=== PATIENT | male | born 1955 | race Caucasian/White ===

== ENCOUNTER 2025-06-25 21:29 | Inpatient (IN) | payer MEDICARE, SELFPAY ==
--- OUTSIDE RECORDS SUMMARY | 2025-04-15 18:17 | XMS_ITS | Encounter Summary ---
Author Organization Kaylin Newman jacques Address [address] [place] [id number] Care Team Providers Care Import Customs Clearing Agent Name Role Phone Kilo Huynh Jr. Primary Care Provid er Reason for Referral * (Routine) - Pending Review Specialty Diagnoses / Procedures Referred By Contac t Referred To Contact Procedures Reason for not prescribing emergency opioid antagonists on discharge Mariano Crabtree MD [address] [place] [address] Phone: tel: fax: Referral ID Status Reason Start Date Expiration Date V isits Requested Visits Authorized [id number] Pending Review 06/25/2025 09/18/2026 1 1 * (Routine) - Pending Review Specialty Diagnoses / Procedures Referred By Contac t Referred To Contact Procedures Diets for dysphagia (difficulty in swallowing): Mariano Crabtree MD [address] [place] [address] Phone: tel: fax: Referral ID Status Reason Start Date Expiration Date V isits Requested Visits Authorized [id number] Pending Review 06/25/2025 09/18/2026 1 1 * Invasive Imaging (Routine) - New Request Specialty Diagnoses / Procedures Referred By Contac t Referred To Contact Radiology Diagnoses Aspiration pneumonitis (HCC) Procedures IR Follow-Up Appointment Mohinder Johnson MD [address] [place] [address] Phone: tel: fax: Referral ID Status Reason Start Date Expiration Date V isits Requested Visits Authorized [id number] New Request 08/12/2025 11/05/2026 1 1 * Invasive Imaging (Routine) - New Request Specialty Diagnoses / Procedures Referred By Ammy hansen Referred To Contact Radiology Diagnoses Aspiration into airway, sequela Procedures IR Follow-Up Appointment Mohinder Johnson MD [address] [place] [address] Phone: tel: fax: Referral ID Status Reason Start Date Expiration Date V isits Requested Visits Authorized [id number] New Request 05/12/2025 08/05/2026 1 1 Reason for Visit * Reason Comments Altered Mental Status * Auth/Cert (Routine) Specialty Diagnoses / Procedures Referred By Ammy hansen Referred To Contact Diagnoses Observation and evaluation for suspected conditions not found Procedures [place] [facility] IP/OBS CARE HIGH MDM 75 MINUTES Referral ID Status Reason Start Date Expiration Date Visits Re quested Visits Authorized [id number] 1 1 Encounter Details Date Type Department Care Team (Latest Contact Info) Description 04/15/2025 6:17 PM EDT - 06/25/2025 7:33 PM EDT Hospital Encounter [facility] [address] [place] [address] Dane Caldwell MD [address] [place] [phone] Enzo Bonner MD [address] [place] [address] Lela Martinez MD [address] [place] [address] Rachelle Randall MD [address] [place] [address] Carter Cerda MD [address] /[address] [address] Chuy Hernandez MD [address] [place] [address] Bonifacio Agudelo MD [address] [place] [address] Jono Aviles MD [address] [place] [address] Mildred Srinivasan MD [address] [place] [address] Mohinder Johnson MD [address] [place] [address] Noe Carranza MD [address] [place] [address] Imelda Xie MD [address] [place] [address] Rabia Velasco MD [address] [place] [address] [id number] Urban Mondragon MD [address] [place] [address] Quan Coates MD [address] [place] [address] Mariano Maloney MD [address] [place], [place] Feliciano Choi MD [address] [place], [place] Govind Olivo MD [address] [facility] W/Span 2 [place], [place] Param Abdi MD [address] 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 IR Follow-Up Appointment Needs routine exchange in [...] Consider starting BP medication. [] Re-evaluation with DISEASE EDUCATION SPECIALIST once he has had increased improvement in [...] he was medically stable and accepted at [facility] for continued psychiatric care and support. Carter [...] was able to work with PT and DISEASE EDUCATION SPECIALIST. However, at the same time he also [...] and SI. He was a ccepted to [facility] on 06/25. # Oropharyngeal Dysphagia with G-Tube [...] improvements in mental status, could re- consider DISEASE EDUCATION SPECIALIST and video swallow. Discussion with HCP that he hopes Carter will be eventually able to transition from the G tube back to PO after swallow therapy. DISEASE EDUCATION SPECIALIST conversation 06/11 with barium swallow - still aspirating but improvement from prior. Per DISEASE EDUCATION SPECIALIST onreview of his long history of dysphagia [...] [facility]. Multiple consistencies of [...] a standalone note by the Speech-Language Pathologist ([facility], Notes, Speech Pathology). BY ELECTRONICALLY SIGNING [...] Anabel Melchor MD Internal Medicine PGY-2 Pager: [phone] [1] Medications Prior to Admission Medication Sig [...] 06/25/2025 8:58 PM EDT Associated attestation - aMriano Crabtree MD - 06/25/2025 8:58 PM EDT [...] medically stable and will be discharged to [facility] geriatric psychiatry unit. is clinically stable for discharge. The total time spent on discharge planning, counseling, and coordination of care was greater than 30 minutes. Remainder of plan per resident note. Mariano Crabtree M.D. Chief City Planner. Ac Forman Clinical Fellow. Department of Infectious [...] taking part in your care here at [facility]! Why was I admitted to the hospital? [...] emergency department if you experience: Sincerely, Your [facility] Care Team documented in this encounter Medications at Time of Discharge acetaminophen (TYLENOL) 500 MG tablet 2 tablets (1,000 mg total) by G-tube route 3 times a day. 06/25/2025 atorvaSTATin (LIPITOR) 20 MG tablet TAKE 1 TABLET (20 MG TOTAL) BY MOUTH DAILY. 90 tablet 3 09/18/2017 bisacodyl (DULCOLAX) 10 mg suppository Insert 1 suppository (10 mg total) into the rectum daily as needed for constipation. 06/25/2025 buPROPion (WELLBUTRIN) 100 MG tablet Take 1 tablet (100 mg total) by mouth 3 times a day. calcium carbonate (TUMS) 200 mg calcium (500 [...] times a day as needed (pain). 06/25/2025 famotidine (PEPCID) 20 MG tablet 1 tablet (20 mg total) by G-tube route every morning & every evening. gabapentin (NEURONTIN) 100 MG capsule 1 capsule (100 mg total) by G-tube route every morning. 06/26/2025 gabapentin (NEURONTIN) 300 MG capsule 1 capsule (300 mg total) by G-tube route at bedtime. gabapentin (NEURONTIN) 300 MG capsule 1 capsule [...] G-tube route 2 times a day. 06/25/2025 lidocaine (LIDODERM) 5 % patch Place 1 patch on the skin daily. Remove & Discard patch within 12 hours or as directed by polyethylene glycol (MIRALAX) 17 gram packet Take 1 packet (17 g total) by mouth 2 times a day. 06/25/2025 ramelteon (ROZEREM) 8 mg tablet Take 1 tablet (8 mg total) by mouth at bedtime. G-tube 06/25/2025 sennosides 8.8 mg/5 mL oral syrup 10 mL (17.6 mg total) by G-tube route every morning & every evening. simethicone (MYLICON) 80 MG chewable tablet 1 tablet (80 mg total) by G-tube route every 6 hours as needed for flatulence. 06/25/2025 sodium chloride (OCEAN) 0.65 % nasal spray 2 sprays into each nostril every 2 hours as needed for congestion. 06/25/2025 tamsulosin (FLOMAX) 0.4 mg cap 24 hr capsule 1 capsule (0.4 mg total) by G-tube route at bedtime. traZODone (DESYREL) 150 MG tablet 1 tablet (150 mg total) by G-tube route at bedtime. valproate (DEPAKENE) 250 mg/5 mL Soln 10 [...] risk reduction [x]Discharge recommendations [x]Mobility Recommendations []Other: []Valve Grinder utilized for session Team Communication: Communicated with [...] participate in the rehabilitation program: Yes Time: 8271-5083 Physical Therapist Name: DEMETRA HAWKINS PT Physical Therapist Pager: [phone] License #: [id number] * Demetra White RN - 06/25/2025 3:45 PM EDT Case Management - Progress Note Patient: Carter Raymundo : 1955 Attending: Mariano Crabtree MD Admit Date: 04/15/2025 Inpatient Status Admit Date: 04/16/25 Primary Care Physician: Kilo Huynh Discussed at [facility]. Section 12. 1:1. MANJIT: Pending IP Cheil Psych Bed: On bed search list. Dispo: Inpatient psych hospital/unit; spoke with [facility] psych admissions bed search team; [facility] is currently reviewing patient's clinicals. State that continued progression with PT/OT may create more bed offers. CM to continue to follow. Demetra White RN 06/25/2025 * Kymberly Mata MD - 06/25/2025 2:55 PM EDT [facility] PSYCHIATRIC CONSULTATION FOLLOW-UP CHIEF COMPLAINT: Psych f/u [...] a well-known poet to visit him at [facility] if he is placed there. He endorses [...] disposition planning. He stopped the bed at [facility] due to prolonged inpatient admission. We [...] knowledge: intact to interview Language: fluent in Mongolian Mental Status: Appearance: appropriately groomed, dressed in [...] 101 BPM Atrial Heart Rate 101 BPM [place] Interval 142 ms QRSD Interval 98 ms QT Interval 376 ms QTC Interval 487 ms P Pear[place] 43 degrees R Pear[place] -26 degrees T Wave [place] 56 degrees Narrative Sinus tachycardia Moderate voltage [...] 25 mg 25 mg G-tube Daily Ammon Lwo MD PhD 25 mg at 06/25/25 0941 [...] injection 40 mg 40 mg Subcutaneous Q24H [facility] Juliet Becerra MD 40 mg at famotidine (PEPCID) tablet 20 mg 20 mg G-tube BID Juliet Becerra MD 20 mg at 06/25/25940 gabapentin (NEURONTIN) capsule 100 mg 100 mg G-tube QAM Patricia Holden MD 100 mg at 06/25/25939 gabapentin [...] (NS) 0.9% flush 3 mL Intravenous Q12H [facility] Peña Salas MD 3 mLat 06/02/252035 And [...] Zaman MD - 06/25/2025 6:56 AM EDT [facility] Medicine Progress Note Patient: Carter Raymudno Admission Date: 04/15/2025 Length of Stay: 70 [...] was able to work with PT and DISEASE EDUCATION SPECIALIST. However, at the same time he also [...] with improvements in mental status, could re-consider DISEASE EDUCATION SPECIALIST and video swallow. Discussion with HCP that he hopes Carter will be eventually able to transition from the G tube back to PO after swallow therapy. DISEASE EDUCATION SPECIALIST conversation 06/11 with barium swallow - still aspirating but improvement from prior. Per DISEASE EDUCATION SPECIALIST on review of his long history of [...] thin liquids - guanfenasin PRN - re-engage DISEASE EDUCATION SPECIALIST today #Leg pain/weakness # History of L4-L5 [...] Full Code - Contact/HCP: brother Delvin Raymundo [phone] Patient Contacts Name Legal Rel Relationship Phone Active Delvin Raymundo Health Care Agent Brother Yes - Disposition: -- Anticipated discharge to: rehab vs psych facility -- Anticipated discharge date: 07/01 -- Anticipated discharge barriers: psych stabilization, working with PT Extended Emergency Contact Information Primary Emergency Contact: PepitosteveDelvin Mobile Relation: Brother Valve Grinder needed? No Nyla Zaman MD PGY-1 Dept [...] to review of data inelectronic medical record, qgew-vi-[id number] evaluation, documentation, and coordination of care. Mariano Crabtree M.D. Chief City Planner. Ac Forman Clinical Fellow. Department of Infectious Diseases * Kymberly Mata MD - 06/24/2025 4:47 PM EDT [facility] PSYCHIATRIC CONSULTATION FOLLOW-UP CHIEF COMPLAINT: INTERVAL HPI: [...] constipation. He is hopeful for hospitalization at [place] for ongoing treatment. He is able to [...] knowledge: intact to interview Language: fluent in Mongolian Mental Status: Appearance: appropriately groomed, dressed in [...] 101 BPM Atrial Heart Rate 101 BPM [place] Interval 142 ms QRSD Interval 98 ms QT Interval 376 ms QTC Interval 487 ms P Pear[place] 43 degrees R Pear[place] -26 degrees T Wave [place] 56 degrees Narrative Sinus tachycardia Moderate voltage [...] risk reduction [x]Discharge recommendations [x]Mobility Recommendations []Other: []Valve Grinder utilized for session Team Communication: Communicated with [...] functional baseline, he will require discharge to [facility] once medically stable. Treatment Plan: Therapeutic Activities/Functional Training Patient agrees with the above goals and is willing to participate in the rehabilitation program: Yes Time: 1636-3730 Physical Therapist Name: Felipa Petit PT Physical Therapist Pager: [phone] Physical Therapist License #: [id number] * Rachelle Condon OT - 06/24/2025 1:00 [...] [] [x]PT (co-treat) []CM RE: Patient status []Valve Grinder utilized for session Intervention: Patient/Caregiver Education RE: [...] participate in the rehabilitation program: Yes Time: 3574-3473 Occupational Therapist Name: Rachelle Condon OT Occupational Therapist Pager: [phone] License #: [id number] * Nyla Zaman MD - 06/24/2025 7:15 AM EDT [facility] Medicine Progress Note Patient: Carter Raymundo Admission [...] about G-tube and requesting to work with DISEASE EDUCATION SPECIALIST as he wants to get it removed. Told patient we want to be careful with his swallowing, and he was agreeable to continue to work with DISEASE EDUCATION SPECIALIST. He otherwise denies any acute concerns. Denies [...] was able to work with PT and DISEASE EDUCATION SPECIALIST. However, at the same time he also [...] with improvements in mental status, could re-consider DISEASE EDUCATION SPECIALIST and video swallow. Discussion with HCP that he hopes Carter will be eventually able to transition from the G tube back to PO after swallow therapy. DISEASE EDUCATION SPECIALIST conversation 06/11 with barium swallow - still aspirating but improvement from prior. Per DISEASE EDUCATION SPECIALIST on review of his long history of [...] thin liquids - guanfenasin PRN - re-engage DISEASE EDUCATION SPECIALIST today #Leg pain/weakness # History of L4-L5 [...] Full Code - Contact/HCP: brother Delvin Raymundo [phone] Patient Contacts Name Legal Rel Relationship Phone Active Delvin Raymundo Health Care Agent Brother Yes - Disposition: -- Anticipated discharge to: Acute rehab facility -- Anticipated discharge date: 06/28 -- Anticipated discharge barriers: psych stabilization Extended Emergency Contact Information Primary Emergency Contact: Delvin Raymundo Mobile Relation: Brother Valve Grinder needed? No Nyla Zaman MD PGY-1 Dept [...] oral intake, we will reach out to DISEASE EDUCATION SPECIALIST for repeat evaluation, and discuss with psychiatry regarding placement. I spent 44 minutes in total on this encounter today, including but not limited to review of data inelectronic medical record, [id number] evaluation, documentation, and coordination of care. Mariano Crabtree M.D. Chief City Planner. Ac Forman Clinical Fellow. Department of Infectious [...] tube feed cont to be cycled as [id number], voiding via male purewick, slept well overnight [...] participate in the rehabilitation program: Yes Time: 1583-2443 Physical Therapist Name: Yogi Blevins PT Physical Therapist Pager: [phone] License #: [id number] * Nyla Zaman MD - 06/23/2025 6:52 AM EDT [facility] Medicine Progress Note Patient: Carter Raymundo Admission [...] appropriate. LABS, MICROBIOLOGY and STUDIES reviewed in [facility]. ASSESSMENT & PLAN 70 y.o. male [...] was able to work with PT and DISEASE EDUCATION SPECIALIST. However, at the same time he also [...] with improvements in mental status, could re-consider DISEASE EDUCATION SPECIALIST and video swallow. Discussion with HCP that he hopes Carter will be eventually able to transition from the G tube back to PO after swallow therapy. DISEASE EDUCATION SPECIALIST conversation 06/11 with barium swallow - still aspirating but improvement from prior. Per DISEASE EDUCATION SPECIALIST on review of his long history of [...] Full Code - Contact/HCP: brother Delvin Raymundo [phone] - Dispo: cheli-psych placement, trial with PT Patient Contacts Name Legal Rel Relationship Phone Active Delvin Raymundo Health Care Agent Brother Yes - Disposition: -- Anticipated discharge to: Acute rehab facility vs psych -- Anticipated discharge date: 06/27 -- Anticipated discharge barriers: pending psych stabilization Extended Emergency Contact Information Primary Emergency Contact: Delvin Raymundo Mobile Relation: Brother Valve Grinder needed? No Nyla Zaman MD PGY-1 Dept [...] to review of data inelectronic medical record, eunu-wq-axrz evaluation, documentation, and coordination of care. Mariano Crabtree M.D. Chief City Planner. Ac Forman Clinical Fellow. Department of Infectious Diseases * Demetra Quitman, PT - 06/22/2025 9:44 AM EDT PHYSICAL [...] risk reduction [x]Discharge recommendations [x]Mobility Recommendations []Other: []Valve Grinder utilized for session Team Communication: Communicated with [...] participate in the rehabilitation program: Yes Time: 812-958 Physical Therapist Name: DEMETRA HAWKINS PT Physical Therapist Pager: [phone] License #: [id number] * Nyla Zaman MD - 06/22/2025 6:47 AM EDT Images from the original note were not included. [facility] Department of Medicine [facility] Medicine Progress Note Patient: Carter Raymundo Admission [...] Improving. LABS, MICROBIOLOGY and STUDIES reviewed in [facility]. ASSESSMENT & PLAN 70 y.o. male [...] was able to work with PT and DISEASE EDUCATION SPECIALIST. However, at the same time he also [...] with improvements in mental status, could re-consider DISEASE EDUCATION SPECIALIST and video swallow. Discussion with HCP that he hopes Carter will be eventually able to transition from the G tube back to PO after swallow therapy. DISEASE EDUCATION SPECIALIST conversation 06/11 with barium swallow - still aspirating but improvement from prior. Per DISEASE EDUCATION SPECIALIST on review of his long history of [...] Full Code - Contact/HCP: brother Delvin Raymundo [phone] - Dispo: cheli-psych placement, trial with PT Patient Contacts Name Legal Rel Relationship Phone Active Delvin Raymundo Health Care Agent Brother Yes - Disposition: -- Anticipated discharge to: Acute rehab facility -- Anticipated discharge date: 07/01 -- Anticipated discharge barriers: needs to be off 1:1 for rehab Extended Emergency Contact Information Primary Emergency Contact: Delvin Raymundo Mobile Relation: Brother Valve Grinder needed? No Nyla Zaman MD Dept of [...] MD Attending Physician Section of Hospital Medicine [facility] * Анна Anguiano MD - 06/21/2025 12:42 PM EDT Images from the original note were not included. [facility] PSYCHIATRIC CONSULTATION FOLLOW-UP CHIEF COMPLAINT: I've been driven to suicidality today INTERVAL HPI: Met with patient at bedside. He reports an upsetting conversation with a medical supervisor today, in which he felt she was [...] knowledge: intact to interview Language: fluent in Mongolian Mental Status: Appearance: tearful, writing on several [...] and emphasized preference to be admitted to [place]. Patient did not appear delirious at the time of interview. DSM-5 DIAGNOSIS: Schizoaffective disorder RECOMMENDATIONS: - Please continue 1:1 sitter - Patient meets section 12 criteria and cannot leave AMA -Rest of recommendations as per Dr. Rivas's note Анна Anguiano MD PGY4 Psychiatry [id number] * Anabel Melchor MD - 06/21/2025 6:19 AM EDT [facility] Medicine Progress Note Patient: Carter Raymundo ( [...] was able to work with PT and DISEASE EDUCATION SPECIALIST. However, at the same time he also [...] with improvements in mental status, could re-consider DISEASE EDUCATION SPECIALIST and video swallow. Discussion with HCP that he hopes Carter will be eventually able to transition from the G tube back to PO after swallow therapy. DISEASE EDUCATION SPECIALIST conversation 06/11 with barium swallow - still aspirating but improvement from prior. Per DISEASE EDUCATION SPECIALIST on review of his long history of [...] Full Code - Contact/HCP: brother Delvin Raymundo [phone] - Dispo: cheli-psych placement, trial with PT [...] MD Attending Physician Section of Hospital Medicine [facility] * Patricia Holden MD - 06/20/2025 10:09 AM EDT [facility] Medicine Progress Note Patient: Carter Raymundo ( [...] uids. He is hopeful to do further DISEASE EDUCATION SPECIALIST therapy in the future to work on [...] was able to work with PT and DISEASE EDUCATION SPECIALIST. However, at the same time he also [...] with improvements in mental status, could re-consider DISEASE EDUCATION SPECIALIST and video swallow. Discussion with HCP that he hopes Carter will be eventually able to transition from the G tube back to PO after swallow therapy. DISEASE EDUCATION SPECIALIST conversation 06/11 with barium swallow - still aspirating but improvement from prior. Per DISEASE EDUCATION SPECIALIST on review of his long history of [...] Full Code - Contact/HCP: brother Delvin Raymundo [phone] - Dispo: cheli-psych placement, trial with PT -- Patricia oHlden MD Resident, Internal Medicine Cosigned by Param [...] MD Attending Physician Section of Hospital Medicine [facility] * Madelyn Bailey RN - 06/20/2025 [...] []MD [x]PT (co-treat) []CM RE: Patient status []Valve Grinder utilized for session Intervention: Patient/Caregiver Education RE: [...] participate in the rehabilitation program: Yes Time: 2014-5746 Occupational Therapist Name: Rachelle Condon OT Occupational Therapist Pager: [phone] License #: [id number] * Demetra Hawkins, PT - 06/19/2025 3:02 [...] risk reduction [x]Discharge recommendations [x]Mobility Recommendations []Other: []Valve Grinder utilized for session Team Communication: Communicated with [...] participate in the rehabilitation program: Yes Time: 0412-5247 Physical Therapist Name: DEMETRA HAWKINS PT Physical Therapist Pager: [phone] License #: [id number] * Nicole Ramirez - 06/19/2025 9:15 AM [...] Exam: Deferred. ASSESSMENT: Estimated Nutrition Needs: Calories: 5962-5470 kcal (25-30 kcal/kg) Protein: 85-106 g (1.2-1.5 g/kg) Fluids: 2448-5395 mL (25-30 mL/kg) Estimated Needs Calculated Usin.9 [...] continue to follow, please message or page [phone] with any questions/concerns Signed by: Nicole Ramirez, MS, RD, LDN 06/19/25 9:15 AM * Patricia Holden MD - 06/19/2025 7:46 AM EDT [facility] Medicine Progress Note Patient: Carter Raymundo ( [...] was able to work with PT and DISEASE EDUCATION SPECIALIST. However, at the same time he also [...] with improvements in mental status, could re-consider DISEASE EDUCATION SPECIALIST and video swallow. Discussion with HCP that he hopes Carter will be eventually able to transition from the G tube back to PO after swallow therapy. DISEASE EDUCATION SPECIALIST conversation 06/11 with barium swallow - still aspirating but improvement from prior. Per DISEASE EDUCATION SPECIALIST on review of his long history of [...] Full Code - Contact/HCP: brother Delvin Raymundo [phone] - Dispo: cheli-psych placement, trial with PT [...] of , Month, Year, City, Name of [facility] Disoriented to: Day Following Directions: Follows [...] [x]RN []MD [x]PT []CM RE: Patient status []Valve Grinder utilized for session Intervention: Patient/Caregiver Education RE: [...] participate in the rehabilitation program: Yes Time: 2082-3871 Occupational Therapist Name: Rachelle Condon OT Occupational Therapist Pager: [phone] License #: [id number] * Luiza Barone, PT - 06/18/2025 5:12 [...] status [x]Patient discussed at interdisciplinary team rounds. []Valve Grinder utilized for session Pt left seated with [...] participate in the rehabilitation program: Yes Time: 2874-9224 Physical Therapy License #[id number] Physical Therapist Name: Luiza Barone, PT Physical Therapist Pager: [phone] * Kimani Rivas MD - 06/18/2025 9:59 AM EDT Images from the original note were not included. [facility] PSYCHIATRIC CONSULTATION FOLLOW-UP NOTE INTERVAL HPI: -NAEON Patient reports feeling well despite recent circumstances. Has somatic concerns regarding left leg,states that he believes it is related to neuropathy. He is looking forward to working with PT today. He acknowledges he needs to get stronger for inpatient psychiatry. He expresses a preference for [facility]. He reports still working on his poetry, [...] clinical course remains positive. Appreciate collateral from manager long term care outpatient psychologist to determine baseline personality and [...] If CL Psychiatry is needed, please contact [phone] for overnight or weekend psychiatric emergencies. Case [...] Holden MD - 06/18/2025 7:36 AM EDT [facility] Medicine Progress Note Patient: Carter Raymundo ( , 1955) Admission Date: 04/15/2025 PCP: Kilo Reyes Jr [facility] Inpatient Attending: Govind Olivo MD INTERVAL 24-hr [...] unresponsiveness events; stroke and seizure workup negative ([facility], MRI brain, EEG). Likely acute delirium on background of decompensated schizoaffective disorder. Psychiatry managing clozapine titration and adjuncts; haloperidol for augmentation and agitation. Meets Section 12 criteria. Week of 06/08 marked improvement in his alertness, insight, ability to communicate with the team, memory and self awareness and was able to work with PT and DISEASE EDUCATION SPECIALIST. However, at the same time he also [...] bed search, verify what level of independence [facility] would require for him to be [...] with improvements in mental status, could re-consider DISEASE EDUCATION SPECIALIST and video swallow. Discussion with HCP that he hopes Carter will be eventually able to transition from the G tube back to PO after swallow therapy. DISEASE EDUCATION SPECIALIST conversation 06/11 with barium swallow - still aspirating but improvement from prior. 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 SW engaged in active listening and empathetic presence. Pt identifies no acute psychosocial needs. SW remains available for support. Please page with questions or concerns. Agustina Garcia LCSW [phone] * Neda Smith, PT - 06/17/2025 12:27 [...] risk reduction []Discharge recommendations [x]Mobility Recommendations []Other: []Valve Grinder utilized for session Team Communication: Communicated with [...] participate in the rehabilitation program: Yes Time: 2353-7278 Physical Therapist Name: Neda Smith PT, DPT Physical Therapist Pager: [phone] License #[id number] * Rachelle Condon OT - 06/17/2025 11:28 [...] []MD [x]PT (co-treat) []CM RE: Patient status []Valve Grinder utilized for session Intervention: Patient/Caregiver Education RE: [...] participate in the rehabilitation program: Yes Time: 6958-9936 Occupational Therapist Name: Rachelle Condon OT Occupational Therapist Pager: [phone] License #: [id number] * Patricia Holden MD - 06/17/2025 7:34 AM EDT [facility] Medicine Progress Note Patient: Carter Raymundo ( [...] was able to work with PT and DISEASE EDUCATION SPECIALIST. However, at the same time he also [...] bed search, verify what level of independence [facility] would require for him to be [...] with improvements in mental status, could re-consider DISEASE EDUCATION SPECIALIST and video swallow. Discussion with HCP that he hopes Carter will be eventually able to transition from the G tube back to PO after swallow therapy. DISEASE EDUCATION SPECIALIST conversation 06/11 with barium swallow - still aspirating but improvement from prior. 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 However, at the same time he also [...] with improvements in mental status, could re-consider DISEASE EDUCATION SPECIALIST and video swallow. Discussion with HCP that he hopes Carter will be eventually able to transition from the G tube back to PO after swallow therapy. DISEASE EDUCATION SPECIALIST conversation 06/11 with barium swallow - still aspirating but improvement from prior. Per DISEASE EDUCATION SPECIALIST on review of his long history of [...] Full Code - Contact/HCP: brother Delvin Raymundo [phone] - Dispo: cheli-psych placement, trial with PT [...] risk reduction [x]Discharge recommendations [x]Mobility Recommendations []Other: []Valve Grinder utilized for session Team Communication: Communicated with [...] participate in the rehabilitation program: Yes Time: 4952-8110 Physical Therapist Name: DEMETRA HAWKINS PT Physical Therapist Pager: [phone] License #: [id number] * Vanessa Reyes RD - 06/15/2025 9:55 [...] in interview ASSESSMENT: Estimated Nutrition Needs: Calories: 5514-8345 kcal (25-30 kcal/kg) Protein: 85-106 g (1.2-1.5 g/kg) Fluids: 8047-2305 mL (25-30 mL/kg) Estimated Needs Calculated Usin.9 [...] Lytes WNL. Interventions / Recommendations: Diet per DISEASE EDUCATION SPECIALIST/team EN recommendations: Switch to standard fiber-containing formula [...] continue to follow, please message or page [phone] with any questions/concerns Signed by: Vanessa Reyes RD 06/15/25 9:55 AM * Demtera White RN - 06/15/2025 9:36 AM EDT Case Management - Progress Note Patient: Carter Raymundo : 1955 Attending: Govind Olivo MD Admit Date: 04/15/2025 Inpatient Status Admit Date: 04/16/25 Primary Care Physician: Kilo Huynh Discussed at [facility]. Section 12. 1:1. MANJIT: Pending IP [facility] Psych Bed: On bed search list Dispo: Inpatient psych hospital/unit CM to continue to follow. Demetra White RN 06/15/2025 * Kimani Rivas MD - 06/15/2025 9:17 AM EDT Images from the original note were not included. [facility] PSYCHIATRIC CONSULTATION FOLLOW-UP NOTE INTERVAL HPI: -NAEON [...] outpatient psychologist of 45 years, per chart: [phone], per online search: [phone]. Left with callback at both numbers provided Dr. José Miguel Jefferson returned call at [phone]: Dr. Jefferson was in contact with patient [...] difficult for him. 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 Recent surgical operations have [...] PRN Meds:.PRN Medications[3] DATA: Reviewed. ASSESSMENT: Carter aRymundo is a 69 y.o. male with past [...] which remains generally positive. Appreciate collateral from manager long term care outpatient psychologist to determine baseline personality and [...] If CL Psychiatry is needed, please contact [phone] for overnight or weekend psychiatric emergencies. Case [...] creative works that will be better than [employer]. Denied any wishes, SI/HI, and AH/VH. Non-pressured speech.No acute thought or behavioral disorganization. No excessive psychomotor activity or agitation. Cognitively, oriented to person, [facility], [place], June 14, Sunday, 2024, and superficially to [...] per resident note below. Saundra Soliman MD Furniture Fabricator, [facility] Psychiatric Consultation-Liaison Service Pager [phone] ([phone] for urgent questions and on nights/weekends/holidays) * Patricia Holden MD - 06/15/2025 7:25 AM EDT [facility] Medicine Progress Note Patient: Carter Raymundo ( [...] would be very interested in going to [facility]. De-escalated labs today. OBJECTIVE Vitals: T 97.6 [...] was able to work with PT and DISEASE EDUCATION SPECIALIST. However, at the same time he also [...] with improvements in mental status, could re-consider DISEASE EDUCATION SPECIALIST and video swallow. Discussion with HCP that he hopes Carter will be eventually able to transition from the G tube back to PO after swallow therapy. DISEASE EDUCATION SPECIALIST conversation 06/11 with barium swallow - still aspirating but improvement from prior. Per DISEASE EDUCATION SPECIALIST on review of his long history of [...] Full Code - Contact/HCP: brother Delvin Raymundo [phone] - Dispo: cheli-psych placement, trial with PT [...] MD PhD - 06/14/2025 5:57 AM EDT [facility] Medicine Progress Note Patient: Carter Raymundo ( [...] with improvements in mental status, could re-consider DISEASE EDUCATION SPECIALIST and video swallow. Discussion with HCP that he hopes Carter will be eventually able to transition from the G tube back to PO after swallow therapy. DISEASE EDUCATION SPECIALIST conversation 06/11 - still aspirating but improvement from prior. Will always be at risk for aspiration and unlikely to meet nutritional needs jovan full PO diet. Per DISEASE EDUCATION SPECIALIST, reasonable for PO for pleasure, with the [...] with oral hygiene before and after. - DISEASE EDUCATION SPECIALIST modified barium swallow 06/11. # Constipation / [...] Full Code - Contact/HCP: brother Delvin Raymundo [phone] - Dispo: cheli-psych placement, trial with PT [...] s/p G-tube on TF who presented to [facility] on 04/15 with unresponsiveness, aphasia, and concern [...] Feliciano Choi MD Section of Hospital Medicine [facility] * Patricia Holden MD - 06/13/2025 4:14 PM EDT [facility] Medicine Progress Note Patient: Carter Raymundo ( [...] with improvements in mental status, could re-consider DISEASE EDUCATION SPECIALIST and video swallow. Discussion with HCP that he hopes Carter will be eventually able to transition from the G tube back to PO after swallow therapy. DISEASE EDUCATION SPECIALIST conversation 06/11 - still aspirating but improvement from prior. Will always be at risk for aspiration and unlikely to meet nutritional needs jovan full PO diet. Per DISEASE EDUCATION SPECIALIST, reasonable for PO for pleasure, with the [...] with oral hygiene before and after. - DISEASE EDUCATION SPECIALIST modified barium swallow 06/11. # Constipation / [...] Full Code - Contact/HCP: brother Delvin Raymundo [phone] - Dispo: cheli-psych placement, trial with PT [...] s/p G-tube on TF who presented to [facility] on 04/15 with unresponsiveness, aphasia, and concern [...] Feliciano Choi MD Section of Hospital Medicine [facility] * Demetra Hawkins, PT - 06/12/2025 [...] assistance, Minimal assistance, With assistive device (ModAx2 w/COMMUNICATIONS EQUIPMENT OPERATOR progressing to Mod+Min w.RW progressing to ModA [...] risk reduction [x]Discharge recommendations [x]Mobility Recommendations []Other: []Valve Grinder utilized for session Team Communication: Communicated with [...] participate in the rehabilitation program: Yes Time: 4324-7435 Physical Therapist Name: DEMETRA HAWKINS PT Physical Therapist Pager: [phone] License #: [id number] * Payton Cramer, OT - 06/12/2025 4:47 [...] 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 [facility] PSYCHIATRIC CONSULTATION FOLLOW-UP NOTE INTERVAL HPI: -NAEON [...] continue attempts to gain additional collateral from manager long term care outpatient psychologist to determine baseline personality and [...] PGY2 Psychiatric Consultation Liaison Service Please contact [phone] for overnight or weekend psychiatric emergencies. [1] [...] Holden MD - 06/12/2025 7:36 AM EDT [facility] Medicine Progress Note Patient: Carter Raymundo ( [...] with improvements in mental status, could re-consider DISEASE EDUCATION SPECIALIST and video swallow. Discussion with HCP that he hopes Carter will be eventually able to transition from the G tube back to PO after swallow therapy. DISEASE EDUCATION SPECIALIST conversation 06/11 - still aspirating but improvement from prior. Will always be at risk for aspiration and unlikely to meet nutritional needs jovan full PO diet. Per DISEASE EDUCATION SPECIALIST, reasonable for PO for pleasure, with the [...] with oral hygiene before and after. - DISEASE EDUCATION SPECIALIST modified barium swallow 06/11. # Constipation / [...] Code Status: Full Code - Contact/HCP: brother Delivn Raymundo [phone] - Dispo: cheli-psych placement, trial with PT [...] s/p G-tube on TF who presented to [facility] on 04/15 with unresponsiveness, aphasia, and concern [...] Feliciano Choi MD Section of Hospital Medicine [facility] * Demetra Jenseniscoe, PT - 06/11/2025 [...] risk reduction [x]Discharge recommendations [x]Mobility Recommendations []Other: []Valve Grinder utilized for session Team Communication: Communicated with [...] participate in the rehabilitation program: Yes Time: 9526-7155 Physical Therapist Name: DEMETRA HAWKINS PT Physical Therapist Pager: [phone] License #: [id number] * Kimani Rivas MD - 06/11/2025 1:58 PM EDT [facility] PSYCHIATRIC CONSULTATION FOLLOW-UP NOTE INTERVAL HPI: -NAEON -Nursing reports patient irritable, endorsing desire to speak with manager investment of hospital Patient interviewed by attending psychiatrist [...] outpatient psychologist of 45 years, per chart: [phone], per online search: [phone]. Left with callback at both numbers provided [...] be beneficial to gain additional collateral from manager long term care outpatient p sychologist to determine baseline personality [...] PGY2 Psychiatric Consultation Liaison Service Please contact [phone] for overnight or weekend psychiatric emergencies. Case [...] inpatient level of care. * Nedra Rader, CCC-DISEASE EDUCATION SPECIALIST - 06/11/2025 1:09 PM EDT OROPHARYNGEAL VIDEOFLUOROSCOPIC SWALLOWING EVALUATION Date of Admission: 04/15/2025 Referring Provider: Patricia Holden MD Preferred Language: Mongolian Valve Grinder: none required History The patient is a [...] Thin Liquid], mildly thick (nectar) liquid [Varibar [place]], puree [Varibar Pudding], and alisa cracker coated [...] (1996). A penetration-aspiration scale. Dysphagia, 11(2), 93-98. https://doi.org/10.1007/PT24689537) 1.Consistency: thin liquids Max PAS:8: Contrast enters [...] is a chronic dysphagia without acute exacerbation, DISEASE EDUCATION SPECIALIST to sign off at this time. Diet orderand advancement to PO for pleasure at provider discretion. Please do not hesitate to reach out or reconsult DISEASE EDUCATION SPECIALIST for further or new questions/concerns. This swallowing [...] and the medical team, Nedra Rader MS [facility]-DISEASE EDUCATION SPECIALIST Speech Language Pathologist Pager #: [phone] Face Time: 1292-0641 Total Time: 60 min 06/11/25 [1] Allergies Allergen Reactions Morphine Itching Electronically signed by Nedra Rader MS [facility]-DISEASE EDUCATION SPECIALIST at 06/11/2025 2:22 PM EDT * Patricia Holden MD - 06/11/2025 11:13 AM EDT [facility] Medicine Progress Note Patient: Carter Raymundo ( , 1955) Admission Date: 04/15/2025 PCP: Kilo Reyes Jr [facility] Inpatient Attending: Feliciano Choi MD INTERVAL 24-hr [...] slowly and well paced. The idea of DISEASE EDUCATION SPECIALIST swallow makes him anxious, but he is [...] with improvements in mental status, could re-consider DISEASE EDUCATION SPECIALIST and video swallow. Discussion with HCP that he hopes Carter will be eventually able to transition from the G tube back to PO after swallow therapy. - c/w overnight tube feeds; adjustments per nutrition. - NPO except for H2O with nursing 1:1 bedside. - DISEASE EDUCATION SPECIALIST modified barium swallow 06/11. # Constipation / [...] Full Code - Contact/HCP: brother Delvin Raymundo [phone] - Dispo: cheli-psych placement, trial with PT [...] s/p G-tube on TF who presented to [facility] on 04/15 with unresponsiveness, aphasia, and concern [...] Feliciano Choi MD Section of Hospital Medicine [facility] * Yogi Blevins, PT - 06/10/2025 [...] participate in the rehabilitation program: Yes Time: 2902-4369 Physical Therapist Name: Yogi Blevins PT Physical Therapist Pager: [phone] License #: [id number] * Patricia Holden MD - 06/10/2025 6:42 AM EDT [facility] Medicine Progress Note Patient: Carter Raymundo ( [...] with improvements in mental status, could re-consider DISEASE EDUCATION SPECIALIST and video swallow. Discussion with HCP that he hopes Carter will be eventually able to transition from the G tube back to PO after swallow therapy. - c/w overnight tube feeds; adjustments per nutrition. - NPO except for H2O with nursing 1:1 bedside. - DISEASE EDUCATION SPECIALIST consult if patient agreeable, limited by agitation/paranoia [...] Full Code - Contact/HCP: brother Delvin Raymundo [phone] - Dispo: cheli-psych placement, trial with PT [...] s/p G-tube on TF who presented to [facility] on 04/15 with unresponsiveness, aphasia, and concern [...] high risk for aspiration, continue to encourage DISEASE EDUCATION SPECIALIST evaluation with VFSS/FEES. Medically stable for inpatient geriatric psychiatry placement, within the confines of his mobility limitations. I spent 35 minutes in this clinical encounter reviewing the medical record, seeing and examining the patient, placing orders, writing notes, performing signout, and communicating with the applicable medical and nursing teams. Feliciano Choi MD Section of Hospital Medicine [facility] * Demetra Hawkins, PT - 06/09/2025 [...] risk reduction [x]Discharge recommendations [x]Mobility Recommendations []Other: []Valve Grinder utilized for session Team Communication: Communicated with [...] participate in the rehabilitation program: Yes Time: 2998-7413 Physical Therapist Name: DEMETRA HAWKINS PT Physical Therapist Pager: [phone] License #: [id number] * Patricia Holden MD - 06/09/2025 6:51 AM EDT [facility] Medicine Progress Note Patient: Carter Raymundo ( [...] with improvements in mental status, could re-consider DISEASE EDUCATION SPECIALIST and video swallow. Discussion with HCP that he hopes Carter will be eventually able to transition from the G tube back to PO after swallow therapy. - c/w overnight tube feeds; adjustments per nutrition. - NPO except for H2O with nursing 1:1 bedside. - DISEASE EDUCATION SPECIALIST consult if patient agreeable, limited by agitation/paranoia [...] Full Code - Contact/HCP: brother Delvin Raymundo [phone] - Dispo: cheli-psych placement, trial with PT [...] s/p G-tube on TF who presented to [facility] on 04/15 with unresponsiveness, aphasia, and concern [...] insists that he work with an older DISEASE EDUCATION SPECIALIST (asking me to guarantee that they be [...] risk for aspiration, will continue to encourage DISEASE EDUCATION SPECIALIST evaluation with VFSS/FEES. I spent 45 minutes in this clinical encounter reviewing the medical record, seeing and examining the patient, placing orders, writing notes, performing signout, and communicating with the applicable medical and nursing teams. Feliciano Choi MD Section of Hospital Medicine [facility] * Demetra James, PT - 06/08/2025 [...] risk reduction [x]Discharge recommendations [x]Mobility Recommendations []Other: []Valve Grinder utilized for session Team Communication: Communicated with [...] participate in the rehabilitation program: Yes Time: 6173-8508 Physical Therapist Name: DEMETRA HAWKINS PT Physical Therapist Pager: [phone] License #: [id number] * Kimani Rivas MD - 06/08/2025 10:03 AM EDT Images from the original note were not included. 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 Not able to [...] PGY2 Psychiatric Consultation Liaison Service Please contact [phone] for overnight or weekend psychiatric emergencies. Case [...] Exam: Deferred ASSESSMENT: Estimated Nutrition Needs: Calories: 8087-5110 kcal (25-30 kcal/kg) Protein: 85-106 g (1.2-1.5 g/kg) Fluids: 8673-9241 mL (25-30 mL/kg) Estimated Needs Calculated Usin.9 [...] previous RD assessment (x7 days ago), per DISEASE EDUCATION SPECIALIST/team now NPO as of 06/03 given high [...] Lytes WNL. Interventions / Recommendations: Diet per team/DISEASE EDUCATION SPECIALIST Continue tube feeds at cycled goal: Glucerna [...] continue to follow, please message or page [phone] with any questions/concerns Signed by: Nelly León MS, RDN, LDN 06/08/25 2:51 PM * Patricia Holden MD - 06/08/2025 7:05 AM EDT [facility] Medicine Progress Note Patient: Carter Raymundo ( [...] potential medical setback in psych placement. - DISEASE EDUCATION SPECIALIST consult if patient agreeable, limited by agitation/paranoia [...] Full Code - Contact/HCP: brother Delvin Raymundo [phone] - Dispo: cheli-psych placement, trial with PT [...] s/p G-tube on TF who presented to [facility] on 04/15 with unresponsiveness, aphasia, and concern [...] unless he can be further evaluated by DISEASE EDUCATION SPECIALIST with VFSS/FEES. I spent 40 minutes in this clinical encounter reviewing the medical record, seeing and examining the patient, placing orders, writing notes, performing signout, and communicating with the applicable medical and nursing teams. Feliciano Choi MD Section of Hospital Medicine [facility] * Ammon Low MD PhD - 06/07/2025 7:22 AM EDT [facility] Medicine Progress Note Patient: Carter Raymundo ( [...] overnight tube feeds; adjustments per nutrition. - DISEASE EDUCATION SPECIALIST consult if patient agreeable, limited by agitation/paranoia [...] Full Code - Contact/HCP: brother Delvin Raymundo [phone] - Dispo: cheli-psych placement, trial with PT [...] Mariano Maloney MD Section of Hospital Medicine [facility] * Param Mg, PT - 06/06/2025 [...] risk reduction [x]Discharge recommendations [x]Mobility Recommendations []Other: []Valve Grinder utilized for session Team Communication: Communicated with [...] participate in the rehabilitation program: Yes Time: 0377-3052 Physical Therapist Name: [place] [id number] Physical Therapist Pager: [phone] * Patricia Holden MD - 06/06/2025 7:51 AM EDT [facility] Medicine Progress Note Patient: Carter Raymundo ( [...] overnight tube feeds; adjustments per nutrition. - DISEASE EDUCATION SPECIALIST consult if patient agreeable, limited by agitation/paranoia [...] Full Code - Contact/HCP: brother Delvin Raymundo [phone] - Dispo: cheli-psych placement, trial with PT [...] Mariano Maloney MD Section of Hospital Medicine [facility] * Nilam Weinberg RN - 06/05/2025 4:57 PM EDT Case Management - Progress Note Patient: Carter Raymundo : 1955 Attending: Urban Mondragon MD Admit Date: 04/15/2025 Inpatient Status Admit Date: 04/16/25 Primary Care Physician: Kilo Huynh Discussed at [facility]. MANJIT: Pending IP Cheli Psych Bed: On [...] participate in the rehabilitation program: Yes Time: 3809-0961 Physical Therapist Name: Yogi Blevins PT Physical Therapist Pager: [phone] License #: [id number] * Kimani Rivas MD - 06/05/2025 12:29 PM EDT Images from the original note were not included. 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 Cognition intact on [...] written with contribution by Beulah Thakkar, MS3 [employer] Kimani Rivas MD Psychiatry PGY2 Psychiatric Consultation Liaison Service Please contact [phone] for overnight or weekend psychiatric emergencies. [1] [...] Holden MD - 06/05/2025 7:11 AM EDT [facility] Medicine Progress Note Patient: Carter Raymundo ( [...] overnight tube feeds; adjustments per nutrition. - DISEASE EDUCATION SPECIALIST consult if patient agreeable,limited by agitation/paranoia # [...] Full Code - Contact/HCP: brother Delvin Raymundo [phone] - Dispo: cheli-psych placement, trial with PT [...] acute agitation. Improving mental status, A&Ox3. On [id number], HCP activated. QTC 471 on 05/31. Follow [...] neg. EEG without evidence of seizure. Had SKI PATROL on 05/27 for unresponsiveness and hypoxemia likely [...] 05/30, however remains high aspiration risk and DISEASE EDUCATION SPECIALIST felt aspiration is silent and clinical assessment [...] EMR Functional Mobility Bed Mobility: Rolling: Modified Wilkin Adaptive Equipment: Side rails Supine to Sit: [...] risk reduction [x]Discharge recommendations [x]Mobility Recommendations []Other: []Valve Grinder utilized for session Team Communication: Communicated with [...] participate in the rehabilitation program: Yes Time: 2926-6918 Physical Therapist Name: DEMETRA HAWKINS PT Physical Therapist Pager: [phone] License #: [id number] * Kimani Rivas MD - 06/04/2025 11:30 AM EDT Images from the original note were not included. 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 Cognition intact on [...] of Psychiatry Psychiatry Consultation-Liaison Service Please page [phone] overnight for any questions or concerns regarding [...] at 06/08/2025 10:58 PM EDT * Patricia Hloden MD - 06/04/2025 6:52 AM EDT [facility] Medicine Progress Note Patient: Carter Raymundo ( , 1955) Admission Date: 04/15/2025 PCP: Kilo Reyes Jr [facility] Inpatient Attending: Urban Mondragon MD INTERVAL 24-hr [...] overnight tube feeds; adjustments per nutrition. - DISEASE EDUCATION SPECIALIST consult if patient agreeable,limited by agitation/paranoia # [...] Full Code - Contact/HCP: brother Delvin Raymundo [phone] - Dispo: cheli-psych placement, trial with PT [...] acute agitation. Improving mental status, A&Ox3. On [id number], HCP activated. QTC 471 on 05/31. Follow up clozapine level. On 06/03 expressed SI without plan, continue 1:1, appreciate psych recs, plan for Sunday meeting to discuss dispo. Worked with PT on 06/03 - two assist to stand. #Metabolic encephalopathy - resolved: presented with AMS, initial code stroke called, CT head without contrast neg. EEG without evidence of seizure. Had SKI PATROL on 05/27 for unresponsiveness and hypoxemia likely [...] 05/30, however remains high aspiration risk and DISEASE EDUCATION SPECIALIST felt aspiration is silent and clinical assessment [...] members of the care team. * Demetra Hawkisn, PT - 06/03/2025 4:57 PM EDT PHYSICAL [...] risk reduction [x]Discharge recommendations [x]Mobility Recommendations []Other: []Valve Grinder utilized for session Team Communication: Communicated with [...] participate in the rehabilitation program: Yes Time: 2537-4627 Physical Therapist Name: DEMETRA HAWKINS PT Physical Therapist Pager: [phone] License #: [id number] * Kymberly Mata MD - 06/03/2025 4:30 PM EDT [facility] PSYCHIATRIC CONSULTATION FOLLOW-UP NOTE INTERVAL HPI: Carter was more agitated overnight. He pulled out PIV. He received haloperidol 2mg PRN without benefit. Clozapine doses were switched so that he received 150mg yesterday am and 25mg qHS. He is cleared from COVID precautions. This morning, he engaged in session with physical therapy. 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 He is appropriately oriented to the time [...] tablet 1,000 mg 1,000 mg G-tube Q8H [facility] Agustín Vazquez MD 1,000 mg at 06/03/25 [...] injection 40 mg 40 mg Subcutaneous Q24H [facility] Juliet Becerra MD 40 mg at famotidine [...] Holden MD - 06/03/2025 7:09 AM EDT [facility] Medicine Progress Note Patient: Carter Raymundo ( , 1955) Admission Date: 04/15/2025 PCP: Kilo Reyes Jr [facility] Inpatient Attending: Urban Mondragon MD INTERVAL 24-hr events: - Pulled out PIV overnight, needed multiple spot doses of Haldol for agitation - Switched Depakote to short acting valproate solution - Did not get his final dose of cefepime - clozapine doses switched - Not able to do DISEASE EDUCATION SPECIALIST or PT yesterday AM Subjective: Carter was still fairly agitated this morning. Expressed continued SI and anger with the medical team. He requested water, and tolerated being boosted in bed and sat upright. Was able to drink water without issue with periods of belching in between sips. Had a conversation with DISEASE EDUCATION SPECIALIST this morning. Carter has a long history [...] overnight tube feeds; adjustments per nutrition. - DISEASE EDUCATION SPECIALIST consult if patient agreeable,limited by agitation/paranoia # [...] Full Code - Contact/HCP: brother Delvin Raymundo [phone] - Dispo: cheli-psych placement, trial with PT [...] neg. EEG without evidence of seizure. Had SKI PATROL on 05/27 for unresponsiveness and hypoxemia likely [...] 05/30, however remains high aspiration risk and DISEASE EDUCATION SPECIALIST felt aspiration is silent and clinical assessment [...] from the original note were not included. [facility] PSYCHIATRIC CONSULTATION FOLLOW-UP NOTE INTERVAL HPI: - [...] of Psychiatry Psychiatry Consultation-Liaison Service Please page [phone] overnight for any questions or concerns regarding [...] Holden MD - 06/02/2025 7:47 AM EDT [facility] Medicine Progress Note Patient: Carter Raymundo ( , 1955) Admission Date: 04/15/2025 PCP: Kilo Reyes Jr [facility] Inpatient Attending: Urban Mondragon MD INTERVAL 24-hr [...] water. He is amenable to trying an DISEASE EDUCATION SPECIALIST consult pending their availability. Per nursing is [...] could trial PO if patient amenable - DISEASE EDUCATION SPECIALIST consult if patient agreeable,limited by agitation/paranoia. Will attempt today pending DISEASE EDUCATION SPECIALIST availability. # Constipation / Diarrhea Hx severe [...] Full Code - Contact/HCP: brother Delvin Raymundo [phone] - Dispo: cheli-psych placement, completion of IV [...] acute agitation. Improving mental status, A&Ox3. On [id number], HCP activated. QTC 471 on 05/31. Follow up clozapine level. More cooperative on 06/02 AM without paranoid thoughts, will aim for DISEASE EDUCATION SPECIALIST and possibly PT today. #Metabolic encephalopathy: presented with AMS, initial code stroke called, CT head without contrastneg. EEG without evidence of seizure. Had SKI PATROL on 05/27 for unresponsiveness and hypoxemia likely [...] to thin liquids on 05/30, will need DISEASE EDUCATION SPECIALIST re-eval when he is more cooperative. Remains on COVID precautions until 06/03. #Hypernatremia: increase free water flush, likely due to limited po intake, resolved as of 06/01. #Drug induced parkinsonism: s/p sinemet #Dysphagia s/p G tube: will coordinate with RN and DISEASE EDUCATION SPECIALIST regarding repeat DISEASE EDUCATION SPECIALIST eval. Continue on TF with [facility]. I [...] severe agitation. ASSESSMENT: Estimated Nutrition Needs: Calories: 9172-5784 kcal (25-30 kcal/kg) Protein: 85-106 g (1.2-1.5 g/kg) Fluids: 8145-0277 mL (25-30 mL/kg) Estimated Needs Calculated Usin.9 [...] to follow. Interventions / Recommendations: Diet per team/DISEASE EDUCATION SPECIALIST. Continue tube feeds at goal: Glucerna 1.5 [...] continue to follow, please message or page [phone] with any questions/concerns Signed by: Nicole Ramirez, MS, RD, LDN 06/01/25 12:12 PM * Kimani Rivas MD - 06/01/2025 11:57 AM EDT [facility] PSYCHIATRIC CONSULTATION FOLLOW-UP NOTE INTERVAL HPI: - [...] however it is suspected that the primary tank wagon driver of his current disorganized behavior is [...] attending psychiatrist Dr. Kymberly Mata. Please page [phone] overnight for any questions or concerns regarding [...] breakdown, for which he was hospitalized at [facility]. He wonders if I am and then [...] continue to follow with you * Patricia Holdne MD - 06/01/2025 7:34 AM EDT [facility] Medicine Progress Note Patient: Carter Raymundo ( [...] could trial PO if patient amenable - DISEASE EDUCATION SPECIALIST consult if patient agreeable,limited by agitation/paranoia # [...] Full Code - Contact/HCP: brother Delvin Raymundo [phone] - Dispo: cheli-psych placement, completion of IV [...] acute agitation. Improving mental status, A&Ox3. On [id number], HCP activated. QTC 471 on 05/31. Remains paranoid without agitation or combative behavior. Will discuss with psychiatry as he is getting close to me dical clearance about potential transfer. #Metabolic encephalopathy: presented with AMS, initial code stroke called, CT head without contrastneg. EEG without evidence of seizure. Had SKI PATROL on 05/27 for unresponsiveness and hypoxemia likely [...] to thin liquids on 05/30, will need DISEASE EDUCATION SPECIALIST re-eval on Sunday given improved mental status. Remains on COVID precautions until 06/03. #Hypernatremia: increase free water flush, likely due to limited po intake, resolved as of 06/01. #Drug induced parkinsonism: s/p sinemet #Dysphagia s/p G tube: will coordinate with RN and DISEASE EDUCATION SPECIALIST regarding repeat DISEASE EDUCATION SPECIALIST eval. Continue on TF with [facility]. I spent 52 minutes directly and personally assessing the patient by, but not limited to, obtaining a history; examining the patient; reviewing data; making decisions for treatment, evaluation of patient's response to treatment; documentation of findings; and discussions with other members of the care team. * Ammon Low MD PhD - 05/31/2025 7:02 AM EDT [facility] Medicine Progress Note Patient: Carter Raymundo ( [...] Full Code - Contact/HCP: brother Delvin Raymundo [phone] - Dispo: cheli-psych placement, completion of IV [...] acute agitation. Improving mental status, A&Ox3. On [id number], HCP activated. QTC 471 on 05/31. #Metabolic encephalopathy: presented with AMS, initial code stroke called, CT head without contrastneg. EEG without evidence of seizure. Had SKI PATROL on 05/27 for unresponsiveness and hypoxemia likely [...] to thin liquids on 05/30, will need DISEASE EDUCATION SPECIALIST re-eval on Sunday given improved mental status. [...] Holden MD - 05/30/2025 7:00 AM EDT [facility] Department of Medicine [facility] Medicine Progress Note Patient: Carter Raymundo Admission Date: 04/15/2025 Length of Stay: 44 PCP: Kilo Huynh Attending: Rabia Velasco MD [...] resolved quickly, possible 2/2 aspiration. At the [facility], he is on a pureed diet. High risk for aspiration. - Liquids with nursing monitoring - Deferring DISEASE EDUCATION SPECIALIST for now; consider DISEASE EDUCATION SPECIALIST if maintains alertness and cooperability as seen [...] Emergency Contact: Delvin Raymundo Mobile Relation: Brother Valve Grinder needed? No Patricia Holden MD PGY-1 Dept [...] agitation. Improving mental status today, A&Ox3. On [id number], HCP activated. Check Qtc tomorrow, last Qtc 05/29 510. #Metabolic encephalopathy: presented with AMS, initial code stroke called, CT head without contrastneg. EEG without evidence of seizure. Had SKI PATROL on 05/27 for unresponsiveness and hypoxemia likely [...] diet to thin liquids today, will need DISEASE EDUCATION SPECIALIST re-eval on Sunday given improved mental status. [...] other members of the care team. * Madelny Bailey RN - 05/30/2025 3:41 AM EDT [...] Primary Care Physician: Kilo Huynh Discussed at [facility]. MANJIT: Steffen Bower Psych Bed: On bed search list. Nilam Weinberg RN 05/29/2025 * Patricia Holden MD - 05/29/2025 7:59 AM EDT Images from the original note were not included. [facility] Department of Medicine [facility] Medicine Progress Note Patient: Carter Raymundo Admission [...] resolved quickly, possible 2/2 aspiration. At the [facility], he is on a pureed diet. High risk for aspiration. - Continue pureed diet - Deferring DISEASE EDUCATION SPECIALIST for now - Nutrition consulted, appreciate recs [...] Emergency Contact: Delvin Raymundo Mobile Relation: Brother Valve Grinder needed? No Patricia Holden MD PGY-1 Dept of Medicine Cosigned by Rabia Velasoc MD at 05/29/2025 1:11 PM EDT Associated [...] Rabia Velasco MD Section of Hospital Medicine [facility] * Madelyn Bailey RN - 05/29/2025 [...] from the original note were not included. [facility] PSYCHIATRIC CONSULTATION FOLLOW-UP NOTE INTERVAL HPI: - [...] attending psychiatrist Dr. Kymberly Mata. Please page [phone] overnight for any questions or concerns regarding [...] Holden MD - 05/28/2025 6:58 AM EDT [facility] Department of Medicine [facility] Medicine Progress Note Patient: Carter Raymundo Admission [...] agitated LABS, MICROBIOLOGY and STUDIES reviewed in [facility]. ASSESSMENT & PLAN Carter Raymundo is [...] resolved quickly, possible 2/2 aspiration. At the [facility], he is on a pureed diet. High risk for aspiration. - Continue pureed diet - Deferring DISEASE EDUCATION SPECIALIST for now - Nutrition consulted, appreciate recs [...] Emergency Contact: Delvin Raymundo Mobile Relation: Brother Valve Grinder needed? No Patricia Holden MD PGY-1 Dept [...] Rabia Velasco MD Section of Hospital Medicine [facility] * Kymberly Mata MD - 2025 3:50 PM EDT [facility] PSYCHIATRIC CONSULTATION FOLLOW-UP NOTE INTERVAL HPI: Per [...] 111 BPM Atrial Heart Rate 111 BPM NJ Interval 128 ms QRSD Interval 100 ms QT Interval 374 ms QTC Interval 508 ms P Pearland 50 degrees R Pear[place] -25 degrees T Wave Pear[place] 53 degrees Narrative Sinus tachycardia Otherwise normal [...] tablet 1,000 mg 1,000 mg G-tube Q8H [facility] Agustín Vazquez MD 1,000 mg at 05/27/25 [...] injection 40 mg 40 mg Subcutaneous Q24H [facility] Juliet Becerra MD 40 mg at [id number] famotidine (PEPCID) tablet 20 mg 20 mg [...] solution 3 mL 3 mL Nebulization Q6H [facility] Ammon Low MD PhD 3 mL at [...] (NS) 0.9% flush 3 mL Intravenous Q12H [facility] Peña Salas MD 3 mLat 05/26/25 2140 [...] PEG, PIV x1. Estimated Nutrition Needs: Calories: 1117-2922 kcal (25-30 kcal/kg) Protein: 85-106 g (1.2-1.5 g/kg) Fluids: 3379-0865 mL (25-30 mL/kg) Estimated Needs Calculated Usin.9 [...] insulin PRN for hyperglycemia. Nutrition to follow, [phone] for any nutrition questions/concerns/interventions. * Patricia Holden MD - 2025 7:36 AM EDT [facility] Department of Medicine [facility] Medicine Progress Note Patient: Carter Raymundo Admission [...] agitated LABS, MICROBIOLOGY and STUDIES reviewed in [facility]. ASSESSMENT & PLAN Carter Raymundo is [...] resolved quickly, possible 2/2 aspiration. At the [facility], he is on a pureed diet. High risk for aspiration. - Continue pureed diet - Deferring DISEASE EDUCATION SPECIALIST for now - Nutrition consulted, appreciate recs [...] Emergency Contact: Delvin Raymundo Mobile Relation: Brother Valve Grinder needed? No Patricia Holden MD PGY-1 Dept [...] Rabia Velasco MD Section of Hospital Medicine [facility] * Patricia Holden MD - 05/26/2025 8:05 AM EDT Images from the original note were not included. [facility] Department of Medicine [facility] Medicine Progress Note Patient: Carter Raymundo Admission [...] resolved quickly, possible 2/2 aspiration. At the [facility], he is on a pureed diet. High risk for aspiration. - Continue pureed diet - Deferring DISEASE EDUCATION SPECIALIST for now - Nutrition consulted, appreciate recs [...] Emergency Contact: Delvin Raymundo Mobile Relation: Brother Valve Grinder needed? No aPtricia Holden MD Dept of Medicine Cosigned by [...] Rabia Velasco MD Section of Hospital Medicine [facility] * Kimani Rivas MD - 05/25/2025 9:32 AM EDT Images from the original note were not included. [facility] PSYCHIATRIC CONSULTATION FOLLOW-UP NOTE INTERVAL HPI: - [...] attending psychiatrist Dr. Kymberly Mata. Please page [phone] overnight for any questions or concerns regarding [...] Exam: Deferred. ASSESSMENT: Estimated Nutrition Needs: Calories: 5003-8160 kcal (25-30 kcal/kg) Protein: 85-106 g (1.2-1.5 g/kg) Fluids: 1118-0485 mL (25-30 mL/kg) Estimated Needs Calculated Usin.9 kg (156 lb 4.9 oz) (weight at rehab) Specifics: 69M w/ PMHx significant for HTN, CKD, schizoaffective disorder, and drug-induced parkinsonism. Presented to [facility] on 04/15/25 w/ unresponsiveness, asphaia, & possible [...] continue to follow, please message or page [phone] with any questions/concerns Signed by: Nicole Ramirez, MS, RD, LDN 05/25/25 8:58 AM * Patricia Holden MD - 05/25/2025 7:54 AM EDT Images from the original note were not included. [facility] Department of Medicine [facility] Medicine Progress Note Patient: Carter Raymundo Admission [...] examined. LABS, MICROBIOLOGY and STUDIES reviewed in [facility]. ASSESSMENT & PLAN Carter Raymundo is [...] resolved quickly, possible 2/2 aspiration. At the [facility], he is on a pureed diet. High risk for aspiration. - Continue pureed diet - Deferring DISEASE EDUCATION SPECIALIST for now - Nutrition consulted, appreciate recs [...] Emergency Contact: Delvin Raymundo Mobile Relation: Brother Valve Grinder needed? No Patricia Holden MD Dept of [...] Rabia Velasco MD Section of Hospital Medicine [facility] * Nicole Willoughby RN - 05/25/2025 [...] from the original note were not included. [facility] Department of Medicine [facility] Medicine Progress Note Patient: Carter Raymundo Admission [...] resolved quickly, possible 2/2 aspiration. At the [facility], he is on a pureed diet. High risk for aspiration. - Continue pureed diet - Deferring DISEASE EDUCATION SPECIALIST for now - Nutrition consulted, appreciate recs [...] Brother - Disposition: -- Anticipated discharge to: [facility] -- Anticipated discharge date: t+2 -- Anticipated discharge barriers: Pending placement Extended Emergency Contact Information Primary Emergency Contact: Delvin Raymundo Mobile Relation: Brother Valve Grinder needed? No Karrie Starks MD Dept of Medicine Cosigned by Rabia Velasco MD at 05/24/2025 1:55 PM EDT Associated [...] for improvement. Obtain procalcitonin with morning labs. aRbia Velasco MD Section of Hospital Medicine [facility] * Agustín Vazquez MD - 05/23/2025 3:20 PM EDT Images from the original note were not included. [facility] Department of Medicine [facility] Medicine Progress Note Patient: Carter Raymundo Admission [...] resolved quickly, possible 2/2 aspiration. At the [facility], he is on a pureed diet. High risk for aspiration. - Continue pureed diet - Deferring DISEASE EDUCATION SPECIALIST for now - Nutrition consulted, appreciate recs [...] Emergency Contact: Delvin Raymundo Mobile Relation: Brother Valve Grinder needed? No Agustín Vazquez MD Dept of [...] Rabia Velasco MD Section of Hospital Medicine [facility] * Kimani Rivas MD - 05/22/2025 11:15 AM EDT Images from the original note were not included. [facility] PSYCHIATRIC CONSULTATION FOLLOW-UP NOTE INTERVAL HPI: - [...] attending psychiatrist Dr. Kymberly Mata. Please page [phone] overnight for any questions or concerns regarding [...] from the original note were not included. [facility] Department of Medicine [facility] Medicine Progress Note Patient: Carter Raymundo Admission [...] resolved quickly, possible 2/2 aspiration. At the [facility], he is on a pureed diet. High risk for aspiration. - Continue pureed diet - Deferring DISEASE EDUCATION SPECIALIST for now - Nutrition consulted, appreciate recs [...] Brothmarisa - Disposition: -- Anticipated discharge to: alf facility -- Anticipated discharge date: t+2 -- Anticipated discharge barriers: Pending placement Extended Emergency Contact Information Primary Emergency Contact: Delvin Raymundo Mobile Relation: Brother Valve Grinder needed? No Karrie Starks MD Dept of [...] documentation. -- Imelda Watt??MD shelly, MBE Hospitalist, [facility] * Kimani Rivas MD - 05/21/2025 11:47 AM EDT Images from the original note were not included. [facility] PSYCHIATRIC CONSULTATION FOLLOW-UP NOTE INTERVAL HPI: - [...] multiple doses Psychiatry will continue to follow Kiamni Rivas MD PGY2, Department of Psychiatry Psychiatry Consultation-Liaison Service Case staffed with attending psychiatrist Dr. Kymberly Mata. Please page [phone] overnight for any questions or concerns regarding [...] from the original note were not included. [facility] Department of Medicine [facility] Medicine Progress Note Patient: Carter Raymundo Admission [...] resolved quickly, possible 2/2 aspiration. At the [facility], he is on a pureed diet. High risk for aspiration. - Continue pureed diet - Deferring DISEASE EDUCATION SPECIALIST for now - Nutrition consulted, appreciate recs [...] Brothmarisa - Disposition: -- Anticipated discharge to: alf facility -- Anticipated discharge date: t+2 -- Anticipated discharge barriers: Pending placement Extended Emergency Contact Information Primary Emergency Contact: Delvin Raymundo Mobile Relation: Brother Valve Grinder needed? No Karrie Starks MD Dept of [...] documentation. -- Imelda Watt??MD shelly, MBE Hospitalist, [facility] * Kymberly Mata MD - 05/20/2025 1:17 PM EDT Images from the original note were not included. [facility] PSYCHIATRIC CONSULTATION FOLLOW-UP NOTE INTERVAL HPI: Pt [...] 101 BPM Atrial Heart Rate 101 BPM NJ Interval 150 ms QRSD Interval 100 ms QT Interval 386 ms QTC Interval 500 ms P Pearland 35 degrees R Pearland -33 degrees T Wave Pearland 48 degrees Narrative Sinus tachycardia Left axis [...] from the original note were not included. [facility] Department of Medicine [facility] Medicine Progress Note Patient: Carter Raymundo Admission [...] resolved quickly, possible 2/2 aspiration. At the [facility], he is on a pureed diet. High risk for aspiration. - Continue pureed diet - Deferring DISEASE EDUCATION SPECIALIST for now - Nutrition consulted, appreciate recs [...] Brother - Disposition: -- Anticipated discharge to: alf facility -- Anticipated discharge date: t+2 -- Anticipated discharge barriers: Pending placement Extended Emergency Contact Information Primary Emergency Contact: Delvin Raymundo Mobile Relation: Brother Valve Grinder needed? No Karrie Starks MD Dept of Medicine Cosigned by Imelda Xie MD at 05/20/2025 5:26 PM EDT Associated attestation - Imelda Xie MD - 05/20/2025 5:26 PM EDT Images from the original note were not included. I have seen Mr. Raymudno, reviewed clinical data and the plan of [...] documentation. -- Imelda Watt??MD shelly, MBE Hospitalist, [facility] * Kimani Rivas MD - 05/19/2025 9:33 AM EDT Images from the original note were not included. [facility] PSYCHIATRIC CONSULTATION FOLLOW-UP NOTE INTERVAL HPI: - [...] attending psychiatrist, Dr. Kymberly Mata. Please page [phone] overnight for any questions or concerns regarding [...] from the original note were not included. [facility] Department of Medicine [facility] Medicine Progress Note Patient: Carter Raymundo Admission [...] resolved quickly, possible 2/2 aspiration. At the [facility], he is on a pureed diet. High risk for aspiration. - Continue pureed diet - Deferring DISEASE EDUCATION SPECIALIST for now - Nutrition consulted, appreciate recs [...] Brothmarisa - Disposition: -- Anticipated discharge to: alf facility -- Anticipated discharge date: t+2 -- Anticipated discharge barriers: Pending placement Extended Emergency Contact Information Primary Emergency Contact: Delvin Raymundo Mobile Relation: Brother Valve Grinder needed? No Karrie Starks MD Dept of [...] documentation. -- Imelda Watt??MD shelly, MBE Hospitalist, [facility] * Kimani Rivas MD - 05/18/2025 1:48 PM EDT Images from the original note were not included. [facility] PSYCHIATRIC CONSULTATION FOLLOW-UP NOTE INTERVAL HPI: - [...] attending psychiatrist, Dr. Kymberly Mata Please page [phone] overnight for any questions or concerns regarding [...] Exam: Deferred. ASSESSMENT: Estimated Nutrition Needs: Calories: 7983-9538 kcal (25-30 kcal/kg) Protein: 85-106 g (1.2-1.5 g/kg) Fluids: 0020-0372 mL (25-30 mL/kg) Estimated Needs Calculated Usin.9 kg (156 lb 4.9 oz) (weight at rehab) Specifics: 69M w/ PMHx significant for HTN, CKD, schizoaffective disorder, and drug-induced parkinsonism. Presented to [facility] on 04/15/25 w/ unresponsiveness, asphaia, & possible [...] continue to follow, please message or page [phone] with any questions/concerns Signed by: Nicole Ramirez, MS, RD, LDN 05/18/25 8:43 AM * Karrie Starks MD - 05/18/2025 6:56 AM EDT Images from the original note were not included. [facility] Department of Medicine [facility] Medicine Progress Note Patient: Carter Raymundo Admission [...] resolved quickly, possible 2/2 aspiration. At the [facility], he is on a pureed diet. High risk for aspiration. - Continue pureed diet - Deferring DISEASE EDUCATION SPECIALIST for now - Nutrition consulted, appreciate recs [...] Brothmarisa - Disposition: -- Anticipated discharge to: alf facility -- Anticipated discharge date: t+2 -- Anticipated discharge barriers: Pending placement Extended Emergency Contact Information Primary Emergency Contact: Delvin Raymundo Mobile Relation: Brother Valve Grinder needed? No Karrie Starks MD Dept of [...] documentation. -- Imelda Watt??MD shelly, MBE Hospitalist, [facility] * Agustín Vazquez MD - 05/17/2025 3:59 PM EDT Images from the original note were not included. [facility] Department of Medicine [facility] Medicine Progress Note Patient: Carter Raymundo Admission [...] resolved quickly, possible 2/2 aspiration. At the [facility], he is on a pureed diet. High risk for aspiration. - Continue pureed diet - Deferring DISEASE EDUCATION SPECIALIST for now - Nutrition consulted, appreciate recs [...] Emergency Contact: Delvin Raymundo Mobile Relation: Brother Valve Grinder needed? No Agustín Vazquez MD Dept of [...] Mohinder Johnson MD Section of Hospital Medicine [facility] * Karrie Starks MD - 05/16/2025 6:48 AM EDT Images from the original note were not included. [facility] Department of Medicine [facility] Medicine Progress Note Patient: Carter Raymundo Admission [...] resolved quickly, possible 2/2 aspiration. At the [facility], he is on a pureed diet. High risk for aspiration. - Continue pureed diet - Deferring DISEASE EDUCATION SPECIALIST for now - Nutrition consulted, appreciate recs [...] Brothmarisa - Disposition: -- Anticipated discharge to: alf facility -- Anticipated discharge date: t+2 -- Anticipated discharge barriers: Pending placement Extended Emergency Contact Information Primary Emergency Contact: Delvin Raymundo Mobile Relation: Brother Valve Grinder needed? No Karrie Starks MD Dept of Medicine Cosigned by Mohinder Johnson MD at 05/16/2025 9:15 PM EDT [...] Mohinder Johnson MD Section of Hospital Medicine [facility] * Kimani Rivas MD - 05/15/2025 3:11 PM EDT Images from the original note were not included. [facility] PSYCHIATRIC CONSULTATION FOLLOW-UP NOTE INTERVAL HPI: -patient [...] Kimani Rivas MD PGY2, Department of Psychiatry [id number] Case discussed with attending psychiatrist, Dr. Kymberly [...] chloride QUEtiapine * Karrie Starks MD - 05/15/2025 7:17 AM EDT Images from the original note were not included. [facility] Department of Medicine [facility] Medicine Progress Note Patient: Carter Raymundo Admission Date: 04/15/2025 Length of Stay: 29 PCP: Kilo Huynh Attending: Mohinder Johnson MD [...] resolved quickly, possible 2/2 aspiration. At the [facility], he is on a pureed diet. High risk for aspiration. - Continue pureed diet - Deferring DISEASE EDUCATION SPECIALIST for now - Nutrition consulted, appreciate recs [...] Brother - Disposition: -- Anticipated discharge to: alf facility -- Anticipated discharge date: t+2 -- Anticipated discharge barriers: Pending placement Extended Emergency Contact Information Primary Emergency Contact: Delvin Raymundo Mobile Relation: Brother Valve Grinder needed? No Karrie (Kostas Starks MD Internal [...] Mohinder Johnson MD Section of Hospital Medicine [facility] * Kimani Rivas MD - 05/14/2025 10:26 AM EDT [facility] PSYCHIATRIC CONSULTATION FOLLOW-UP NOTE INTERVAL HPI: -NAEON [...] Parkinsonism. [place] neurolog[place] [facility] [place] to we[place] off of Sinemet since [...] Kimani Rivas MD PGY2, Department of Psychiatry [id number] Case staffed with attending psychiatrist, Dr. Kymberly [...] from the original note were not included. [facility] Department of Medicine [facility] Medicine Progress Note Patient: Carter Raymundo Admission [...] resolved quickly, possible 2/2 aspiration. At the [facility], he is on a pureed diet. High risk for aspiration. - Continue pureed diet - Deferring DISEASE EDUCATION SPECIALIST for now - Nutrition consulted, appreciate recs [...] Brother - Disposition: -- Anticipated discharge to: alf facility -- Anticipated discharge date: t+2 -- Anticipated discharge barriers: Pending placement Extended Emergency Contact Information Primary Emergency Contact: Delvin Raymundo Mobile Relation: Brother Valve Grinder needed? No Karrie Starks MD ([facility]) Internal [...] Mohinder Johnson MD Section of Hospital Medicine [facility] * Karrie Starks MD - 05/13/2025 6:48 AM EDT Images from the original note were not included. [facility] Department of Medicine [facility] Medicine Progress Note Patient: Carter Raymundo Admission [...] resolved quickly, possible 2/2 aspiration. At the [facility], he is on a pureed diet. High risk for aspiration. - Continue pureed diet - Deferring DISEASE EDUCATION SPECIALIST for now - Nutrition consulted, appreciate recs [...] Brothmarisa - Disposition: -- Anticipated discharge to: alf facility -- Anticipated discharge date: t+2 -- Anticipated discharge barriers: Pending placement Extended Emergency Contact Information Primary Emergency Contact: Delvin Raymundo Mobile Relation: Brother Valve Grinder needed? No Karrie (Nelly) MD [facility]re[facility] Internal [...] Mohinder Johnson MD Section of Hospital Medicine [facility] * Nicole Ramirez - 05/12/2025 8:42 [...] severe agitation. ASSESSMENT: Estimated Nutrition Needs: Calories: 6308-4328 kcal (25-30 kcal/kg) Protein: 85-106 g (1.2-1.5 g/kg) Fluids: 9033-2457 mL (25-30 mL/kg) Estimated Needs Calculated Usin.9 kg (156 lb 4.9 oz) (weight at rehab) Specifics: 69M w/ PMHx significant for HTN, CKD, schizoaffective disorder, and drug-induced parkinsonism. Presented to [facility] on 04/15/25 w/ unresponsiveness, asphaia, & possible [...] continue to follow, please message or page [phone] with any questions/concerns Signed by: Nicole Ramirez, MS, RD, LDN 05/12/25 8:42 AM * Karrie Starks MD - 05/12/2025 6:59 AM EDT Images from the original note were not included. [facility] Department of Medicine [facility] Medicine Progress Note Patient: Carter Raymundo Admission [...] resolved quickly, possible 2/2 aspiration. At the [facility], he is on a pureed diet. High risk for aspiration. - Continue pureed diet - Deferring DISEASE EDUCATION SPECIALIST for now - Nutrition consulted, appreciate recs [...] Brother - Disposition: -- Anticipated discharge to: alf facility -- Anticipated discharge date: t+2 -- Anticipated discharge barriers: Pending placement Extended Emergency Contact Information Primary Emergency Contact: Delvin Raymudno Mobile Relation: Brother Valve Grinder needed? No Karrie Starks MD ([facility]) Internal [...] Mohinder Johnson MD Section of Hospital Medicine [facility] * Luiza Hamm MD - 05/12/2025 6:26 AM EDT Interventional Radiology Inpatient Progress Note REASON FOR CONSULTATION: Dislodged g-tube HISTORY: Carter Raymundo (BID #: [id number]) is a 69 y.o. male with schizoaffective disorder, drug-induced parkinsonism, with intermittent episodes of agitation that has unfortunately led to the dislodgement of his g-tube. G-tube was initially placed 12/2024 by surgery at [facility], was last rescued via bedside exchange by [...] 95 BPM Atrial Heart Rate 95 BPM NJ Interval 154 ms QRSD Interval 100 ms QT Interval 394 ms QTC Interval 495 ms P Pearland 87 degrees R Pearland -37 degrees T Wave Pearland 65 degrees ASSESSMENT: Carter Raymundo is a [...] Fr maharaj in the tract -Please page [phone] with any questions or concerns. Luiza Hamm MD 05/12/2025 Cosigned by Cassandra Fernandez MD at 05/12/2025 8:42 PM EDT Associated [...] from the original note were not included. [facility] PSYCHIATRIC CONSULTATION FOLLOW-UP NOTE INTERVAL HPI: - [...] with patient's neurolog[place] [facility] [place] as per her note it indicates a nursing home plan to wean off of Sinemet since [...] Kimani Rivas MD PGY2, Department of Psychiatry [id number] Case discussed with attending psychiatrist, Dr. Kymberly [...] from the original note were not included. [facility] Department of Medicine [facility] Medicine Progress Note Patient: Carter Raymundo Admission Date: 04/15/2025 Length of Stay: 25 PCP: Kilo Hunyh Attending: Mohinder Johnson MD Chief Complaint: Altered [...] resolved quickly, possible 2/2 aspiration. At the [facility], he is on a pureed diet. High risk for aspiration. - Continue pureed diet - Deferring DISEASE EDUCATION SPECIALIST for now - Nutrition consulted, appreciate recs [...] Brother - Disposition: -- Anticipated discharge to: alf facility -- Anticipated discharge date: t+2 -- Anticipated discharge barriers: Pending placement Extended Emergency Contact Information Primary Emergency Contact: Delvin Raymundo Mobile Relation: Brother Valve Grinder needed? No Karrie (Kostas Starks MD Internal [...] Mohinder Johnson MD Section of Hospital Medicine [facility] * Karrie Starks MD - 05/10/2025 6:43 AM EDT Images from the original note were not included. [facility] Department of Medicine [facility] Medicine Progress Note Patient: Carter Raymundo Admission [...] resolved quickly, possible 2/2 aspiration. At the [facility], he is on a pureed diet. High risk for aspiration. - Continue pureed diet - Deferring DISEASE EDUCATION SPECIALIST for now - Nutrition consulted, appreciate recs [...] Brothmarisa - Disposition: -- Anticipated discharge to: alf facility -- Anticipated discharge date: t+2 -- Anticipated discharge barriers: Pending placement Extended Emergency Contact Information Primary Emergency Contact: Delvin Raymundo Mobile Relation: Brother Valve Grinder needed? No Karrie (Kostas Starks MD Dept [...] by Karrie Starks MD. Noe Carranza MD [facility] Medicine Attending pager [phone] * Karrie Starks MD - 05/09/2025 6:43 AM EDT Images from the original note were not included. [facility] Department of Medicine [facility] Medicine Progress Note Patient: Carter Raymundo Admission [...] resolved quickly, possible 2/2 aspiration. At the [facility], he is on a pureed diet. High risk for aspiration. - Continue pureed diet - Deferring DISEASE EDUCATION SPECIALIST for now - Nutrition consulted, appreciate recs [...] Brother - Disposition: -- Anticipated discharge to: alf facility -- Anticipated discharge date: t+2 -- Anticipated discharge barriers: Completion of evaluation for altered mental status Extended Emergency Contact Information Primary Emergency Contact: Delvin Raymundo Mobile Relation: Brother Valve Grinder needed? No Karrie Starks MD ([facility]) Internal [...] by Karrie Starks MD. Noe Carranza MD [facility] Medicine Attending pager [phone] * Kimani Rivas MD - 05/08/2025 2:00 PM EDT [facility] PSYCHIATRIC CONSULTATION FOLLOW-UP NOTE INTERVAL HPI: - Ativan PRN used last afternoon for agitation - Seroquel PRNs used yesterday for agitation Patient resting comfortably on interview. On seeing this physician underwriter he shouts no I can't talk today get the f___ out! He then refuses to respond to further questions on interview. Interview prematurelyconcluded per patient preference. Marilyn Raygoza (outpatient neurologist - [phone]), left REVIEW OF SYSTEMS: As per HPI [...] with patient's neurologist [place]arily[place] [facility] [place] as per her note it indicates a nursing home plan to wean off of Sinemet since [...] Kimani Rivas MD PGY2, Department of Psychiatry [id number] [1] atorvaSTATin, 20 mg, G-tube, QHS buPROPion, [...] from the original note were not included. [facility] Department of Medicine [facility] Medicine Progress Note Patient: Carter Raymundo Admission [...] resolved quickly, possible 2/2 aspiration. At the [facility], he is on a pureed diet. High risk for aspiration. - Continue pureed diet - Deferring DISEASE EDUCATION SPECIALIST for now - Nutrition consulted, appreciate recs [...] Brother - Disposition: -- Anticipated discharge to: alf facility -- Anticipated discharge date: t+2 -- Anticipated discharge barriers: Completion of evaluation for altered mental status Extended Emergency Contact Information Primary Emergency Contact: Delvin Raymundo Mobile Relation: Brother Valve Grinder needed? No Agustín Vazquez MD PGY2 Cosigned [...] Mohinder Johnson MD Section of Hospital Medicine [facility] * Kimani Rivas MD - 05/07/2025 8:22 AM EDT [facility] PSYCHIATRIC CONSULTATION FOLLOW-UP NOTE INTERVAL HPI: - [...] with patient's neurologist [place] Ray[place] [facility] [place] as per her note it indicates a manager long term care plan to wean off of Sinemet since [...] Kimani Rivas MD PGY2, Department of Psychiatry [id number] Case staffed with attending psychiatrist, Dr. Kymberly [...] from the original note were not included. [facility] Department of Medicine [facility] Medicine Progress Note Patient: Carter Raymundo Admission [...] resolved quickly, possible 2/2 aspiration. At the [facility], he is on a pureed diet. High risk for aspiration. - Continue pureed diet - Deferring DISEASE EDUCATION SPECIALIST for now - Nutrition consulted, appreciate recs [...] Brothmarisa - Disposition: -- Anticipated discharge to: alf facility -- Anticipated discharge date: t+2 -- Anticipated discharge barriers: Completion of evaluation for altered mental status Extended Emergency Contact Information Primary Emergency Contact: Delvin Raymundo Mobile Relation: Brother Valve Grinder needed? No Karrie Starks MD ([facility]) Dept [...] Mohinder Johnson MD Section of Hospital Medicine [facility] * Kymberly Mata MD - 05/06/2025 2:18 PM EDT [facility] PSYCHIATRIC CONSULTATION FOLLOW-UP NOTE INTERVAL HPI: Increased [...] from the original note were not included. [facility] Department of Medicine [facility] Medicine Progress Note Patient: Carter Raymundo Admission [...] resolved quickly, possible 2/2 aspiration. At the [facility], he is on a pureed diet. High risk for aspiration. - Continue pureed diet - Deferring DISEASE EDUCATION SPECIALIST for now - Nutrition consulted, appreciate recs [...] Brother - Disposition: -- Anticipated discharge to: alf facility -- Anticipated discharge date: t+2 -- Anticipated discharge barriers: Completion of evaluation for altered mental status Extended Emergency Contact Information Primary Emergency Contact: Delvin Raymundo Mobile Relation: Brother Valve Grinder needed? No Karrie (Nelly) MD [facility] Dept [...] Mohinder Johnson MD Section of Hospital Medicine [facility] * Kimani Rivas MD - 05/05/2025 3:02 PM EDT Images from the original note were not included. [facility] PSYCHIATRIC CONSULTATION FOLLOW-UP NOTE INTERVAL HPI: - [...] Kimani Rivas MD PGY2, Department of Psychiatry [id number] Case staffed with attending psychiatrist, Dr. Kymberly [...] Exam: Deferred ASSESSMENT: Estimated Nutrition Needs: Calories: 7489-2589 kcal (25-30 kcal/kg) Protein: 85-106 g (1.2-1.5 g/kg) Fluids: 4015-7476 mL (25-30 mL/kg) Estimated Needs Calculated Usin.9 kg (156 lb 4.9 oz) (weight at rehab) Specifics: 69M w/ PMH significant for HTN, CKD, schizoaffective disorder, & drug-induced parkinsonism. Presented to [facility] on 04/15/25 w/ unresponsiveness, asphaia, & possible [...] continue to follow, please message or page [phone] with any questions/concerns Signed by: Nicole Ramirez MS, RD, LDN 05/05/25 7:48 AM * Karrie Starks MD - 05/05/2025 6:54 AM EDT Images from the original note were not included. [facility] Department of Medicine [facility] Medicine Progress Note Patient: Carter Raymundo Admission [...] patient is currently on pureed diet with DISEASE EDUCATION SPECIALIST at their facility following. High risk for aspiration and given transient nature suspect this was the driving etiology of hypoxia. CXR with unclear opacification, then obtained lateral view which showed some streakiness c/f atelectasis vs infection. Given lack of fevers, cough, and leukocytosis, low clinical suspicion for pneumonia and will defer Abx for now. - Continue pureed diet - Deferring DISEASE EDUCATION SPECIALIST for now - Nutrition consulted, appreciate recs [...] Brothmarisa - Disposition: -- Anticipated discharge to: alf facility -- Anticipated discharge date: t+2 -- Anticipated discharge barriers: Completion of evaluation for altered mental status Extended Emergency Contact Information Primary Emergency Contact: Delvin Raymundo Mobile Relation: Brother Valve Grinder needed? No Karrie Starks MD ([facility]) Dept [...] Mohinder Johnson MD Section of Hospital Medicine [facility] * Madelyn Bailey RN - 05/05/2025 [...] from the original note were not included. [facility] PSYCHIATRIC CONSULTATION FOLLOW-UP NOTE INTERVAL HPI: - [...] Kimani Rivas MD PGY2, Department of Psychiatry [id number] Case staffed with attending psychiatrist, Dr. Kymberly [...] from the original note were not included. [facility] Department of Medicine [facility] Medicine Progress Note Patient: Carter Raymundo Admission [...] patient is currently on pureed diet with DISEASE EDUCATION SPECIALIST at their facility following. High risk for aspiration and given transient nature suspect this was the driving etiology of hypoxia. CXR with unclear opacification, then obtained lateral view which showed some streakiness c/f atelectasis vs infection. Given lack of fevers, cough, and leukocytosis, low clinical suspicion for pneumonia and will defer Abx for now. - Continue pureed diet - Deferring DISEASE EDUCATION SPECIALIST for now - Nutrition consulted, appreciate recs [...] Brothmarisa - Disposition: -- Anticipated discharge to: alf facility -- Anticipated discharge date: t+2 -- Anticipated discharge barriers: Completion of evaluation for altered mental status Extended Emergency Contact Information Primary Emergency Contact: Delvin Raymundo Mobile Relation: Brother Valve Grinder needed? No Karrie Starks MD ([facility]) Dept [...] Mohinder Johnson MD Section of Hospital Medicine [facility] * Madelyn Bailey RN - 05/04/2025 [...] from the original note were not included. [facility] Department of Medicine [facility] Medicine Progress Note Patient: Carter Raymundo Admission [...] patient is currently on pureed diet with DISEASE EDUCATION SPECIALIST at their facility following. High risk for aspiration and given transient nature suspect this was the driving etiology of hypoxia. CXR with unclear opacification, then obtained lateral view which showed some streakiness c/f atelectasis vs infection. Given lack of fevers, cough, and leukocytosis, low clinical suspicion for pneumonia and will defer Abx for now. - Continue pureed diet - Deferring DISEASE EDUCATION SPECIALIST for now - Nutrition consulted, appreciate recs [...] Brothmarisa - Disposition: -- Anticipated discharge to: alf facility -- Anticipated discharge date: t+2 -- Anticipated discharge barriers: Completion of evaluation for altered mental status Extended Emergency Contact Information Primary Emergency Contact: Delvin Raymundo Mobile Relation: Brother Valve Grinder needed? No Noe Ruiz MD Dept of [...] review of data in electronic medical record, [id number]-ai-[id number] evaluation, documentation, and coordination of care. Mildred Srinivasan MD Section of Hospital Medicine [facility] * Ebony Oneill MD - 05/02/2025 5:30 PM EDT [facility] PSYCHIATRIC CONSULTATION FOLLOW-UP NOTE CHIEF COMPLAINT: I [...] conveyed to primary team. Ebony Oneill MD [facility] Psychiatry- PGY3 * Karrie Starks MD - 05/02/2025 6:47 AM EDT Images from the original note were not included. [facility] Department of Medicine [facility] Medicine Progress Note Patient: Carter Raymundo Admission [...] patient is currently on pureed diet with DISEASE EDUCATION SPECIALIST at their facility following. High risk for aspiration and given transient nature suspect this was the driving etiology of hypoxia. CXR with unclear opacification, then obtained lateral view which showed some streakiness c/f atelectasis vs infection. Given lack of fevers, cough, and leukocytosis, low clinical suspicion for pneumonia and will defer Abx for now. - Continue pureed diet - Deferring DISEASE EDUCATION SPECIALIST for now - Nutrition consulted, appreciate recs [...] Brothmarisa - Disposition: -- Anticipated discharge to: alf facility -- Anticipated discharge date: t+2 -- Anticipated discharge barriers: Completion of evaluation for altered mental status Extended Emergency Contact Information Primary Emergency Contact: Delvin Raymundo Mobile Relation: Brother Valve Grinder needed? No Karrie Starks MD ([facility]) Dept of Medicine Cosigned by Mildred Sirnivasan MD at 05/02/2025 2:17 PM EDT Associated [...] review of data in electronic medical record, atxp-[id number] evaluation, documentation, and coordination of care. Mildred Srinivasan MD Section of Hospital Medicine [facility] * Kimani Rivas MD - 05/01/2025 4:23 PM EDT Images from the original note were not included. [facility] PSYCHIATRIC CONSULTATION FOLLOW-UP NOTE INTERVAL HPI: - [...] Kimani Rivas MD PGY2, Department of Psychiatry [id number] Discussed with attending psychiatrist, Dr. Kymberly Mata. [...] from the original note were not included. [facility] Department of Medicine [facility] Medicine Progress Note Patient: Carter Raymundo Admission [...] patient is currently on pureed diet with DISEASE EDUCATION SPECIALIST at their facility following. High risk for aspiration and given transient nature suspect this was the driving etiology of hypoxia. CXR with unclear opacification, then obtained lateral view which showed some streakiness c/f atelectasis vs infection. Given lack of fevers, cough, and leukocytosis, low clinical suspicion for pneumonia and will defer Abx for now. - Continue pureed diet - Deferring DISEASE EDUCATION SPECIALIST for now - Nutrition consulted, appreciate recs [...] Brothmarisa - Disposition: -- Anticipated discharge to: alf facility -- Anticipated discharge date: t+2 -- Anticipated discharge barriers: Completion of evaluation for altered mental status Extended Emergency Contact Information Primary Emergency Contact: Delvin Raymundo Mobile Relation: Brother Valve Grinder needed? No Karrie Starks MD ([facility]) Dept [...] review of data in electronic medical record, [id number]-[id number] evaluation, documentation, and coordination of care. Mildred Srinivasan MD Section of Hospital Medicine [facility] * Kimani Rivas MD - 04/30/2025 9:45 AM EDT Images from the original note were not included. [facility] PSYCHIATRIC CONSULTATION FOLLOW-UP NOTE INTERVAL HPI: - [...] to fatigue. Collateral: Delvin Raymundo (brother) - [phone] He reports he came to visit brother [...] Kimani Rivas MD PGY2, Department of Psychiatry [id number] Discussed with attending psychiatrist, Dr. Kymberly Mata. [...] from the original note were not included. [facility] Department of Medicine [facility] Medicine Progress Note Patient: Carter Raymundo Admission [...] patient is currently on pureed diet with DISEASE EDUCATION SPECIALIST at their facility following. High risk for aspiration and given transient nature suspect this was the driving etiology of hypoxia. CXR with unclear opacification, then obtained lateral view which showed some streakiness c/f atelectasis vs infection. Given lack of fevers, cough, and leukocytosis, low clinical suspicion for pneumonia and will defer Abx for now. - Continue pureed diet - Deferring DISEASE EDUCATION SPECIALIST for now - Nutrition consulted, appreciate recs [...] Brothmarisa - Disposition: -- Anticipated discharge to: alf facility -- Anticipated discharge date: t+2 -- Anticipated discharge barriers: Completion of evaluation for altered mental status Extended Emergency Contact Information Primary Emergency Contact: Delvin Raymundo Mobile Relation: Brother Valve Grinder needed? No Karrie Starks MD ([facility]) Dept [...] review of data in electronic medical record, lika-[id number]-hpdz evaluation, documentation, and coordination of care. Mildred Srinivasan MD Section of Hospital Medicine [facility] * Yogi Blevins, PT - 04/29/2025 [...] participate in the rehabilitation program: Yes Time: 9303-8595 Physical Therapist Name: Yogi Blevins PT Physical Therapist Pager: [phone] License #: [id number] * Nicole Ramirez - 04/29/2025 9:43 AM [...] BILITOT 0.4 Lab Results Component Value Date [id number] 04/17/2025 CRP 7.5 (H) 04/17/2025 Food [...] Exam: Deferred. ASSESSMENT: Estimated Nutrition Needs: Calories: 8775-8671 kcal (25-30 kcal/kg) Protein: 85-106 g (1.2-1.5 g/kg) Fluids: 7534-4923 mL (25-30 mL/kg) Estimated Needs Calculated Usin.9 kg (156 lb 4.9 oz) (weight at rehab) Specifics: 69M w/ PMH significant for HTN, CKD, schizoaffective disorder, & drug-induced parkinsonism. Presented to [facility] on 04/15/25 w/ unresponsiveness, asphaia, & possible [...] continue to follow, please message or page [phone] with any questions/concerns Signed by: Nicole Ramirez MS, RD, LDN 04/29/25 9:43 AM * Karrie Starks MD - 04/29/2025 6:41 AM EDT Images from the original note were not included. [facility] Department of Medicine [facility] Medicine Progress Note Patient: Carter Raymundo Admission [...] patient is currently on pureed diet with DISEASE EDUCATION SPECIALIST at their facility following. High risk for aspiration and given transient nature suspect this was the driving etiology of hypoxia. CXR with unclear opacification, then obtained lateral view which showed some streakiness c/f atelectasis vs infection. Given lack of fevers, cough, and leukocytosis, low clinical suspicion for pneumonia and will defer Abx for now. - Continue pureed diet - Deferring DISEASE EDUCATION SPECIALIST for now - Nutrition consulted, appreciate recs [...] Brothmarisa - Disposition: -- Anticipated discharge to: alf facility -- Anticipated discharge date: t+2 -- Anticipated discharge barriers: Completion of evaluation for altered mental status Extended Emergency Contact Information Primary Emergency Contact: Delvin Raymundo Mobile Relation: Brother Valve Grinder needed? No Karrie Starks MD ([facility]) Dept [...] review of data in electronic medical record, qptl-iq-ghaf evaluation, documentation, and coordination of care. Mildred Srinivasan MD Section of Hospital Medicine [facility] * Kimani Rivas MD - 04/28/2025 10:33 AM EDT Images from the original note were not included. [facility] PSYCHIATRIC CONSULTATION FOLLOW-UP NOTE INTERVAL HPI: - [...] to conversation Memory: Deferred Language: Fluent in Mongolian, no paraphasic errors *limited by patient participation [...] Kimani Rivas MD PGY2, Department of Psychiatry [id number] Discussed with attending psychiatrist, Dr. Kymberly Mata. [...] from the original note were not included. [facility] Department of Medicine [facility] Medicine Progress Note Patient: Carter Raymundo Admission Date: 04/15/2025 Length of Stay: 12 PCP: Kilo Huynh Attending: Mildred Srinivasan MD [...] patient is currently on pureed diet with DISEASE EDUCATION SPECIALIST at their facility following. High risk for aspiration and given transient nature suspect this was the driving etiology of hypoxia. CXR with unclear opacification, then obtained lateral view which showed some streakiness c/f atelectasis vs infection. Given lack of fevers, cough, and leukocytosis, low clinical suspicion for pneumonia and will defer Abx for now. - Continue pureed diet - Deferring DISEASE EDUCATION SPECIALIST for now - Nutrition consulted, appreciate recs [...] Brothmarisa - Disposition: -- Anticipated discharge to: alf facility -- Anticipated discharge date: t+2 -- Anticipated discharge barriers: Completion of evaluation for altered mental status Extended Emergency Contact Information Primary Emergency Contact: Delvin Raymundo Mobile Relation: Brother Valve Grinder needed? No Karrie Starks MD ([facility]) Dept [...] review of data in electronic medical record, yimx-gv-eypv evaluation, documentation, and coordination of care. Mildred Srinivasan MD Section of Hospital Medicine [facility] * Chris Soria RN - 04/27/2025 [...] from the original note were not included. [facility] PSYCHIATRIC CONSULTATION FOLLOW-UP NOTE INTERVAL HPI: -No [...] to conversation Memory: Deferred Language: Fluent in Mongolian, no paraphasic errors *limited by patient participation [...] Negative 04/16/2025 Lab Results Component Value Date [id number] 04/14/2024 Lab Results Component Value Date [...] 119 BPM Atrial Heart Rate 119 BPM NJ Interval 144 ms QRSD Interval 96 ms QT Interval 362 ms QTC Interval 509 ms P Pearland 58 degrees R Pear[place] -36 degrees T Wave [place] 72 degrees Narrative Sinus tachycardia Left axis [...] Kimani Rivas MD PGY2, Department of Psychiatry [id number] Case seen with Dr. Kymberly Mata, attending [...] from the original note were not included. [facility] Department of Medicine [facility] Medicine Progress Note Patient: Carter Raymundo Admission [...] patient is currently on pureed diet with DISEASE EDUCATION SPECIALIST at their facility following. High risk for aspiration and given transient nature suspect this was the driving etiology of hypoxia. CXR with unclear opacification, then obtained lateral view which showed some streakiness c/f atelectasis vs infection. Given lack of fevers, cough, and leukocytosis, low clinical suspicion for pneumonia and will defer Abx for now. - Continue pureed diet - Deferring DISEASE EDUCATION SPECIALIST for now - Nutrition consulted, appreciate recs [...] Brothmarisa - Disposition: -- Anticipated discharge to: alf facility -- Anticipated discharge date: t+2 -- Anticipated discharge barriers: Completion of evaluation for altered mental status Extended Emergency Contact Information Primary Emergency Contact: Delvin Raymundo Mobile Relation: Brother Valve Grinder needed? No Karrie Starks MD Dept of [...] review of data in electronic medical record, [id number] evaluation, documentation, and coordination of care. Mildred Srinivasan MD Section of Hospital Medicine [facility] * Salomon Haile MD - 04/26/2025 6:43 PM EDT Images from the original note were not included. [facility] PSYCHIATRIC CONSULTATION FOLLOW-UP NOTE INTERVAL HPI: No [...] to last 3 presidents Language: Fluent in Mongolian, no paraphasic errors Executive function: Verbal trails [...] Negative 04/16/2025 Lab Results Component Value Date [id number] 04/14/2024 Lab Results Component Value Date [...] 119 BPM Atrial Heart Rate 119 BPM NJ Interval 144 ms QRSD Interval 96 ms QT Interval 362 ms QTC Interval 509 ms P Pear[place] 58 degrees R [place] -36 degrees T Wave [place] 72 degrees Narrative Sinus tachycardia Left axis [...] Salomon Haile MD PGY3, Department of Psychiatry [id number] [1] atorvaSTATin, 20 mg, G-tube, QHS buPROPion, [...] throughout Functional Mobility Bed Mobility: Rolling: Modified [place]kin Supine to Sit: Minimal assistance (needed cueing [...] risk reduction [x]Discharge recommendations [x]Mobility Recommendations []Other: []Valve Grinder utilized for session Team Communication: Communicated with [...] participate in the rehabilitation program: Yes Time: [phone] Physical Therapist Name: [place] [id number] Physical Therapist Pager: [phone] * Noe Ruiz MD - 04/26/2025 7:13 AM EDT Images from the original note were not included. [facility] Department of Medicine [facility] Medicine Progress Note Patient: Carter Raymundo Admission [...] patient is currently on pureed diet with DISEASE EDUCATION SPECIALIST at their facility following. High risk for aspiration and given transient nature suspect this was the driving etiology of hypoxia. CXR with unclear opacification, then obtained lateral view which showed some streakiness c/f atelectasis vs infection. Given lack of fevers, cough, and leukocytosis, low clinical suspicion for pneumonia and will defer Abx for now. - Continue pureed diet - Deferring DISEASE EDUCATION SPECIALIST for now - Nutrition consulted, appreciate recs [...] Brothmarisa - Disposition: -- Anticipated discharge to: alf facility -- Anticipated discharge date: t+1 -- Anticipated discharge barriers: Completion of evaluation for altered mental status Extended Emergency Contact Information Primary Emergency Contact: Delvin Raymundo Mobile Relation: Brother Valve Grinder needed? No Noe Ruiz MD Dept of [...] split dose clozapine. He is also on [id number] hoping to discharge him to for inpatient [...] Bonifacio Agudelo MD Section of Hospital Medicine [facility] * Juliet Becerra MD - 04/25/2025 8:39 AM EDT Images from the original note were not included. [facility] Department of Medicine [facility] Medicine Progress Note Patient: Carter Raymundo Admission [...] morning. LABS, MICROBIOLOGY and STUDIES reviewed in [facility]. ASSESSMENT & PLAN Carter Raymundo is [...] patient is currently on pureed diet with DISEASE EDUCATION SPECIALIST at their facility following. High risk for aspiration and given transient nature suspect this was the driving etiology of hypoxia. CXR with unclear opacification, then obtained lateral view which showed some streakiness c/f atelectasis vs infection. Given lack of fevers, cough, and leukocytosis, low clinical suspicion for pneumonia and will defer Abx for now. - Continue pureed diet - Deferring DISEASE EDUCATION SPECIALIST for now - Nutrition consulted, appreciate recs [...] Brother - Disposition: -- Anticipated discharge to: alf facility -- Anticipated discharge date: t+1 -- Anticipated discharge barriers: Completion of evaluation for altered mental status Extended Emergency Contact Information Primary Emergency Contact: Delvin Raymundo Mobile Relation: Brother Valve Grinder needed? No Juliet Becerra MD Dept of [...] Bonifacio Agudelo MD Section of Hospital Medicine [facility] * Juliet Becerra MD - 04/24/2025 8:04 AM EDT Images from the original note were not included. [facility] Department of Medicine [facility] Medicine Progress Note Patient: Carter Raymundo Admission [...] patient is currently on pureed diet with DISEASE EDUCATION SPECIALIST at their facility following. High risk for aspiration and given transient nature suspect this was the driving etiology of hypoxia. CXR with unclear opacification, then obtained lateral view which showed some streakiness c/f atelectasis vs infection. Given lack of fevers, cough, and leukocytosis, low clinical suspicion for pneumonia and will defer Abx for now. - Continue pureed diet - Deferring DISEASE EDUCATION SPECIALIST for now - Nutrition consulted, appreciate recs [...] Brother - Disposition: -- Anticipated discharge to: alf facility -- Anticipated discharge date: t+2 -- Anticipated discharge barriers: Completion of evaluation for altered mental status, re-initiation of clozapine per psychiatry Extended Emergency Contact Information Primary Emergency Contact: Delvin Raymundo Mobile Relation: Brother Valve Grinder needed? No Juliet Becerra MD Dept of Medicine Cosigned by Bonifacio Agudelo MD at 04/24/2025 12:11 PM EDT Associated attestation - Bonifacio Agudelo MD - 04/24/2025 12:11 PM EDT I have seen and examined Mr. Raymudno, reviewed the findings and plan of care as documented by MD Rex and agree, except for any additional comments below. This morning he is awake to me and answers [place] to basic questions about symptoms. He denies [...] Bonifacio Agudelo MD Section of Hospital Medicine [facility] * Alex Goetz MD - 04/23/2025 3:20 PM EDT Images from the original note were not included. [facility] Department of Psychiatry Consultation Liaison Service [facility] PSYCHIATRIC CONSULTATION FOLLOW-UP Date of Service: 04/23/2025 [...] Emergency Contact: Delvin Raymundo Mobile Relation: Brother Valve Grinder needed? No Alex Goetz MD PGY-4, Psychiatry [id number] (nights, weekends, holidays) * Kimani iRvas MD - 04/23/2025 11:22 AM EDT [facility] PSYCHIATRIC CONSULTATION FOLLOW-UP NOTE INTERVAL HPI: - [...] [place] [facility] [phone][place] left VM REVIEW OF SYSTEMS: Positive as [...] conversation Memory: grossly intact Language: Fluent in Mongolian, no paraphasic errors Mental Status: Appearance: appears [...] Negative 04/16/2025 Lab Results Component Value Date [id number] 438 04/14/2024 Lab Results Component Value Date [...] 119 BPM Atrial Heart Rate 119 BPM NJ Interval 144 ms QRSD Interval 96 ms QT Interval 362 ms QTC Interval 509 ms P [place] 58 degrees R [place] -36 degrees T Wave [place] 72 degrees Narrative Sinus tachycardia Left axis [...] PEG, drug induced Parkinsonism, who presented from [facility] with altered mental status with [...] Kimani Rivas MD Psychiatry PGY2 Personal pager: [phone] For overnight emergencies may contact [phone] pager. [1] atorvaSTATin, 20 mg, G-tube, QHS [...] 70.9 kg (sitting scale; 04/13/25) - per [facility] Pertinent Meds: famotidine, lorazepam, multivitamin w/ [...] BILITOT 0.3 Lab Results Component Value Date [id number] 04/17/2025 CRP 7.5 (H) 04/17/2025 Food [...] Exam: Deferred. ASSESSMENT: Estimated Nutrition Needs: Calories: 5689-8081 kcal (25-30 kcal/kg) Protein: 85-106 g (1.2-1.5 g/kg) Fluids: 0122-6816 mL (25-30 mL/kg) Estimated Needs Calculated Usin.9 kg (156 lb 4.9 oz) (weight at rehab) Specifics: 69M w/ PMHx significant for HTN, CKD, schizoaffective disorder, and drug-induced parkinsonism. Presented to [facility] on 04/15/25 w/ unresponsiveness, asphaia, & possible [...] continue to follow, please message or page [phone] with any questions/concerns Signed by: Nicole Ramirez MS, RD, LDN 04/23/25 8:31 AM * Juliet Becerra MD - 04/23/2025 7:41 AM EDT Images from the original note were not included. [facility] Department of Medicine [facility] Medicine Progress Note Patient: Carter Raymundo Admission [...] morning LABS, MICROBIOLOGY and STUDIES reviewed in [facility]. ASSESSMENT & PLAN Carter Raymundo is [...] patient is currently on pureed diet with DISEASE EDUCATION SPECIALIST at their facility following. High risk for aspiration and given transient nature suspect this was the driving etiology of hypoxia. CXR with unclear opacification, then obtained lateral view which showed some streakiness c/f atelectasis vs infection. Given lack of fevers, cough, and leukocytosis, low clinical suspicion for pneumonia and will defer Abx for now. - Continue pureed diet - Deferring DISEASE EDUCATION SPECIALIST for now - Nutrition consulted, appreciate recs [...] Brother - Disposition: -- Anticipated discharge to: alf facility -- Anticipated discharge date: t+1 -- Anticipated discharge barriers: Completion of evaluation for altered mental status Extended Emergency Contact Information Primary Emergency Contact: Delvin Raymundo Mobile Relation: Brother Valve Grinder needed? No Juliet Becerra MD Dept of [...] Bonifacio Agudelo MD Section of Hospital Medicine [facility] * Kymberly Mata MD - 04/22/2025 12:34 PM EDT [facility] PSYCHIATRIC CONSULTATION FOLLOW-UP NOTE CC: Altered mental [...] PEG, drug induced Parkinsonism, who presented from [facility] with altered mental status with [...] from the original note were not included. [facility] Department of Medicine [facility] Medicine Progress Note Patient: Carter Raymundo Admission [...] patient is currently on pureed diet with DISEASE EDUCATION SPECIALIST at their facility following. High risk for aspiration and given transient nature suspect this was the driving etiology of hypoxia. CXR with unclear opacification, then obtained lateral view which showed some streakiness c/f atelectasis vs infection. Given lack of fevers, cough, and leukocytosis, low clinical suspicion for pneumonia and will defer Abx for now. - Continue pureed diet - Deferring DISEASE EDUCATION SPECIALIST for now - Nutrition consulted, appreciate recs [...] Brother - Disposition: -- Anticipated discharge to: alf facility -- Anticipated discharge date: t+1 -- Anticipated discharge barriers: Completion of evaluation for altered mental status Extended Emergency Contact Information Primary Emergency Contact: Delvin Raymundo Mobile Relation: Brother Valve Grinder needed? No Juliet Becerra MD Dept of [...] side effect, dystonic reaction, seizure, or other HYDROELECTRIC PLANT ELECTRICIAN injury. Initial blood work is reassuring. 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 Leisure activities: reading Lives With: Alone Receives [...] 2 person Transfer aid: Other (comment) (bilateral COMMUNICATIONS EQUIPMENT OPERATOR) Gait Belt Used For Transfers: Yes Gait: [...] risk reduction [x]Discharge recommendations [x]Mobility Recommendations []Other: []Valve Grinder utilized for session Team Communication: Communicated with [...] participate in the rehabilitation program: Yes Time: 4423-5445 Physical Therapist Name: DEMETRA HAWKINS PT Physical Therapist Pager: [phone] License #: [id number] * Kimani Rivas MD - 04/21/2025 11:14 AM EDT [facility] PSYCHIATRIC CONSULTATION FOLLOW-UP NOTE INTERVAL HPI: NAEON. [...] Attempt[place] psychiatrist, [place] [facility] [place][phone][place] left REVIEW OF SYSTEMS: Positive as documented above, otherwise negative EXAM: 04/21/2025 12:42 AM Vital Signs Pain Location Back Neurological: Motor: mild tremor appreciated in bilateral hands L>R Station and gait: not assessed as patient lying in bed Cognitive: Wakefulness/alertness: awake and alert Orientation: grossly oriented to person/place/situation Attention: attentive to conversation Memory: grossly intact Language: Fluent in Mongolian, no paraphasic errors Mental Status: Appearance: appears [...] Negative 04/16/2025 Lab Results Component Value Date [id number] 04/14/2024 Lab Results Component Value Date [...] 98 BPM Atrial Heart Rate 98 BPM NJ Interval 156 ms QRSD Interval 108 ms QT Interval 392 ms QTC Interval 500 ms P [place] 63 degrees R Pear[place] -23 degrees T Wave [place] 65 degrees Narrative Normal sinus rhythm Minimal [...] PEG, drug induced Parkinsonism, who presented from [facility] with altered mental status with [...] Kimani Rivas MD Psychiatry PGY2 Personal pager: [phone] For overnight emergencies may contact [phone] pager. [1] atorvaSTATin, 20 mg, G-tube, QHS [...] PEG, drug induced Parkinsonism, who presented from [facility] with altered mental status with [...] from the original note were not included. [facility] Department of Medicine [facility] Medicine Progress Note Patient: Carter Raymundo Admission [...] nursing LABS, MICROBIOLOGY and STUDIES reviewed in [facility]. ASSESSMENT & PLAN Carter Raymundo is [...] patient is currently on pureed diet with DISEASE EDUCATION SPECIALIST at their facility following. High risk for aspiration and given transient nature suspect this was the driving etiology of hypoxia. CXR with unclear opacification, then obtained lateral view which showed some streakiness c/f atelectasis vs infection. Given lack of fevers, cough, and leukocytosis, low clinical suspicion for pneumonia and will defer Abx for now. - Continue pureed diet - Deferring DISEASE EDUCATION SPECIALIST for now - Nutrition consulted, appreciate recs [...] Brothmarisa - Disposition: -- Anticipated discharge to: alf facility -- Anticipated discharge date: t+1 -- Anticipated discharge barriers: Completion of evaluation for altered mental status Extended Emergency Contact Information Primary Emergency Contact: Delvin Raymundo Mobile Relation: Brother Valve Grinder needed? No Juliet Becerra MD Dept of [...] Bonifacio Agudelo MD Section of Hospital Medicine [facility] * Angel Luis Frausto RN - 04/20/2025 1:08 PM EDT VSS. R/A. A/Ox3. Intermittently refusing care from nursing. As of now pt is refusing O2 monitoring, aware. Will try again to place on. 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 He says that this paranoia extended to [...] Negative 04/16/2025 Lab Results Component Value Date [id number] 04/14/2024 Lab Results Component Value Date [...] 98 BPM Atrial Heart Rate 98 BPM NJ Interval 156 ms QRSD Interval 108 ms QT Interval 392 ms QTC Interval 500 ms P [place] 63 degrees R [place] -23 degrees T Wave [place] 65 degrees Narrative Normal sinus rhythm Minimal [...] from the original note were not included. [facility] Department of Medicine [facility] Medicine Progress Note Patient: Carter Raymundo Admission [...] that he is receiving good care at [facility]. Denies SI/HI. Has some back pain that [...] patient is currently on pureed diet with DISEASE EDUCATION SPECIALIST at their facility following. High risk for aspiration and given transient nature suspect this was the driving etiology of hypoxia. CXR with unclear opacification, then obtained lateral view which showed some streakiness c/f atelectasis vs infection. Given lack of fevers, cough, and leukocytosis, low clinical suspicion for pneumonia and will defer Abx for now. - Continue pureed diet - Deferring DISEASE EDUCATION SPECIALIST for now - Nutrition consulted, appreciate recs [...] Raymundo - Disposition: -- Anticipated discharge to: alf facility -- Anticipated discharge date: t+1 -- Anticipated discharge barriers: Completion of evaluation for altered mental status Extended Emergency Contact Information Primary Emergency Contact: Delvin Raymundo Mobile Relation: Brother Valve Grinder needed? 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 [facility] Department of Medicine [facility] Medicine Progress Note Patient: Carter Raymundo Admission [...] patient is currently on pureed diet with DISEASE EDUCATION SPECIALIST at their facility following. High risk for aspiration and given transient nature suspect this was the driving etiology of hypoxia. CXR with unclear opacification, then obtained lateral view which showed some streakiness c/f atelectasis vs infection. Given lack of fevers, cough, and leukocytosis, low clinical suspicion for pneumonia and will defer Abx for now. - Continue pureed diet - Deferring DISEASE EDUCATION SPECIALIST for now - Nutrition consulted, appreciate recs [...] Brother - Disposition: -- Anticipated discharge to: alf facility -- Anticipated discharge date: t+1 -- Anticipated discharge barriers: Completion of evaluation for altered mental status Extended Emergency Contact Information Primary Emergency Contact: Delvin Raymundo Mobile Relation: Brother Valve Grinder needed? No Juliet Becerra MD Dept of [...] Jono Aviles MD Section of Hospital Medicine [facility] * Noe Ruiz MD - 04/18/2025 2:11 PM EDT Images from the original note were not included. [facility] Department of Medicine [facility] Medicine Progress Note Patient: Carter Raymundo Admission [...] patient is currently on pureed diet with DISEASE EDUCATION SPECIALIST at their facility following. High risk for aspiration and given transient nature suspect this was the driving etiology of hypoxia. CXR with unclear opacification, then obtained lateral view which showed some streakiness c/f atelectasis vs infection. Given lack of fevers, cough, and leukocytosis, low clinical suspicion for pneumonia and will defer Abx for now. - Continue pureed diet - Deferring DISEASE EDUCATION SPECIALIST for now - Nutrition consulted, appreciate recs [...] Brother - Disposition: -- Anticipated discharge to: alf facility -- Anticipated discharge date: t+1 -- Anticipated discharge barriers: Completion of evaluation for altered mental status Extended Emergency Contact Information Primary Emergency Contact: Delvin Raymundo Mobile Relation: Brother Valve Grinder needed? No Noe Ruiz MD Dept of [...] Jono Aviles MD Section of Hospital Medicine [facility] * Sherman Zayas MD - 04/18/2025 9:11 AM EDT Images from the original note were not included. [facility] PSYCHIATRIC CONSULTATION FOLLOW-UP NOTE INTERVAL: -No acute [...] had to go in, family would prefer [place]. Patient reportedly has been psychiatrically stablefor several decades and has not had any recent hospitalizations. REVIEW OF SYSTEMS: Positive for HPI, otherwise negative. EXAM: 04/18/2025 7:47 AM Vital Signs Temperature 98.6 ??F (37 ??C) Heart Rate 92 Respiration 18 SpO2 96 % Blood Pressure 138/90 [facility] catatonia rating scale: Excitement: 0 Immobility/stupor: [...] to year, month, late March. Oriented to [facility]. Disoriented to situation. Attention: Patient somewhat inattentive [...] to recall further presidents. Language: Fluent in Mongolian without any paraphasic errors. Executive function: Deferred [...] Negative 04/16/2025 Lab Results Component Value Date [id number] 04/14/2024 Lab Results Component Value Date [...] 98 BPM Atrial Heart Rate 98 BPM NJ Interval 156 ms QRSD Interval 108 ms QT Interval 392 ms QTC Interval 500 ms P [place] 63 degrees R [place] -23 degrees T Wave [place] 65 degrees Narrative Normal sinus rhythm Minimal voltage criteria for LVH, may be normal variant ( [place] product ) Prolonged QT interval Abnormal ECG [...] follow Sherman Zayas MD Psychiatry PGY3 Pager [phone] [1] atorvaSTATin, 20 mg, G-tube, QHS buPROPion, [...] Goetz MD - 04/17/2025 9:45 PM EDT [facility] PSYCHIATRIC CONSULTATION FOLLOW-UP NOTE INTERVAL HPI: 69 [...] knowledge: Does not answer Language: Fluent in Mongolian Executive function: Does not answer Mental Status: [...] Negative 04/16/2025 Lab Results Component Value Date [id number] 04/14/2024 Lab Results Component Value Date [...] 91 BPM Atrial Heart Rate 91 BPM NJ Interval 146 ms QRSD Interval 100 ms QT Interval 390 ms QTC Interval 479 ms P [place] 43 degrees R [place] -27 degrees T Wave [place] 61 degrees Narrative --- Poor data quality, [...] from the original note were not included. [facility] Department of Medicine [facility] Medicine Progress Note Patient: Carter Raymundo Admission [...] patient is currently on pureed diet with DISEASE EDUCATION SPECIALIST at their facility following. High risk for aspiration and given transient nature suspect this was the driving etiology of hypoxia. CXR with unclear opacification, then obtained lateral view which showed some streakiness c/f atelectasis vs infection. Given lack of fevers, cough, and leukocytosis, low clinical suspicion for pneumonia and will defer Abx for now. - Continue pureed diet - Consider DISEASE EDUCATION SPECIALIST re-evaluation here - Consider nutrition consult for [...] Brothmarisa - Disposition: -- Anticipated discharge to: alf facility -- Anticipated discharge date: t+1 -- Anticipated discharge barriers: Completion of evaluation for altered mental status Extended Emergency Contact Information Primary Emergency Contact: Delvin Raymundo Mobile Relation: Brother Valve Grinder needed? No Juliet Becerra MD Dept of [...] need further collateral regarding his situation at [facility]. His DC plan is not yet clear to me. Bonifacio Agudelo MD Section of Hospital Medicine [facility] documented in this encounter H&P Notes * Peña Salas MD - 04/16/2025 2:44 PM EDT Images from the original note were not included. [facility] Department of Medicine [facility] Medicine Admission Note Patient: Carter Raymundo Admission [...] Raymundo was brought in by EMS from [facility] yesterday evening. He was found unresponsive at 5:30 PM at [facility] after being baseline at 4:15 PM. He was not talking orresponding and was noted to have facial asymmetry, initially described as a possible left facial droop. He had declined all of his medications that morning. Upon discussion with the patient, Mr. Raymundo reports he currently feels fine. Upon asking what happened yesterday, he reports the staff at [facility] have been tormenting him and trying [...] devised a plan to get out of [facility] by faking a stroke. He reports this plan was a success and is adamant that he does not want to return to [facility], stating he would prefer to live on his own. Upon further questioning of the events that occurred while he was unresponsive, Mr. Raymundo could not accurately recall them (he did not believe that he was brought to the hospital from [facility] by ambulance). Review of systems notable [...] 70 mL (70 mL Intravenous Given 04/15/25 4082) LORazepam (ATIVAN) injection 1 mg (1 mg Intravenous Given 04/16/25 0025) acetaminophen (TYLENOL) tablet 1,000 mg (1,000 mg G-tube Given 04/16/25 0947) [facility] Past Medical History[1] Social History and Family History were reviewed in [facility]. MEDICATIONS PAML Complete Prior to Admission [...] Guarded. Expresses paranoid beliefs. LABS reviewed in [facility], notable as above. STUDIES reviewed in [facility], notable as above. ASSESSMENT & PLAN [...] patient is currently on pureed diet with DISEASE EDUCATION SPECIALIST at their facility following. High risk for aspiration and given transient nature suspect this was the driving etiology of hypoxia. CXR with unclear opacification, then obtained lateral view which showed some streakiness c/f atelectasis vs infection. Given lack of fevers, cough, and leukocytosis, low clinical suspicion for pneumonia and will defer Abx for now. - Continue pureed diet - Consider DISEASE EDUCATION SPECIALIST re-evaluation here - Consider nutrition consult for [...] brother, - Disposition: -- Anticipated discharge to: alf facility -- Anticipated discharge date: t+1 -- [...] available laboratory, report, and imaging data in [facility]. I have reviewed the above note and I agree with the documented history, exam, and plan which I helped to formulate today, with the exception of any modifications or additions as notedbelow. This is a 69-year-old man with history of CAD, CKD, HTN, BPH, recurrent aspiration s/p PEG tube placement, schizoaffective disorder and drug-induced parkinsonism who presented from [facility] with unresponsiveness, and expressive aphasia. Code stroke [...] that he doesn't want to return to [facility] specifically. Will plan to resume home psychotropic medications as per psych recs and hold further doses of benzodiazepines at this time. Otherwise will stop antibiotics and monitor on continuous O2 with aspiration precautions. Will involve PT/CM in the morning for dispo planning. Chuy Hernandez MD Section of Hospital Medicine [facility] 04/16/2025 documented in this encounter Consult [...] creative works that will be better than [employer]. Denied any wishes, SI/HI, and AH/VH. Non-pressured speech.No acute thought or behavioral disorganization. No excessive psychomotor activity or agitation. Cognitively, oriented to person, [facility], June 14, 2024, and superficially to situation; [...] resident note on 06/15. Saundra Soliman MD Furniture Fabricator, [facility] Psychiatric Consultation-Liaison Service Pager [phone] ([phone] for urgent questions and on nights/weekends/holidays) * Nedra Rader MS CCC-DISEASE EDUCATION SPECIALIST - 06/03/2025 1:25 PM EDT Speech-Language Pathology [...] Recommend pt continue to partake in conservative DISEASE EDUCATION SPECIALIST PO trials of ice chips and ?? [...] help improve AMS/delirium with normal meal times. DISEASE EDUCATION SPECIALIST consult placed to help problem solve dysphagia and PO nutrition. Teamed with Patricia Holden MD with primary team. Reviewed hx dysphagia per prior DISEASE EDUCATION SPECIALIST notes and that is probable that pt is still aspirating with PO. Given nature of aspirationhas been silent in past, clinical bedside swallow evaluation would have little utility and not be areliable assessment requiring instrumental swallow assessment. As this is a chronic dysphagia and pt has stable route for nutrition, DISEASE EDUCATION SPECIALIST will be unable to complete repeat VFSS/FEES this date. Option remains to complete instrumental reassessment as census allows (anticipated next week) and pt remains appropriate. If pt were to d/c prior to DISEASE EDUCATION SPECIALIST eval, assessment can be completed as OP. DISEASE EDUCATION SPECIALIST to follow. Nedra Rader MS CCC-DISEASE EDUCATION SPECIALIST Speech Language Pathologist Pager # [phone] 06/03/25 1:47 PM * Amaya Goetz MD - 2025 9:51 PM EDT Images from the original note were not included. [facility] Division of Pulmonary, Critical Care & [...] Gases: No results found for: PHARTL , OJA3WWD , PO2ART , [id number] Microbiology: Results for orders placed or performed [...] should he further worsen. Gavin Lozada MD [facility] Pulmonary and Critical Care * Kimi Correa MD - 05/11/2025 11:14 PM EDTAssociated Order(s): IP CONSULT TO INTERVENTIONAL RADIOLOGY Interventional Radiology Inpatient Consult 05/11/25 REASON FOR CONSULT: Dislodged g-tube HPI: Carter Raymundo (BID #: [id number]) is a 69 y.o. male with schizoaffective disorder, drug-inducedparkinsonism, with intermittent episodes of agitation that has unfortunately led to the dislodgement of his g-tube. G-tube was initially placed 12/2024 by surgery at [facility], was last rescued via bedside exchange by [...] injection 40 mg 40 mg Subcutaneous Q24H [facility] Juliet Becerra MD 40 mg at famotidine [...] has gastrostomy tube placed by surgery in [facility] in December of this year. Patient pulled [...] supine. A pre-procedure time-out was performed per [facility] protocol. The upper abdomen and tube site [...] drug-induced parkinsonism, chronic aspiration, s/p PEG 02/13 ([facility]) p/w c/f stroke 04/15, now with dislodged [...] READ:~No acute intracranial abnormality. Angel Luis Tompkins [phone]. BY ELECTRONICALLY SIGNING THIS REPORT, I THE [...] large vascular territory infarction or hemorrhage. ~~Patent sycuan of [place] without evidence of substantial stenosis or occlusion.~~Patent bilateral cervical carotid and vertebral arteries without evidence of stenosis >70% by NASCET criteria, occlusion, or dissection .~~Full read pending by neuroradiology. ~ Valentin Mena [id number]: BY ELECTRONICALLY SIGNING THIS REPORT, I THE [...] drug-induced parkinsonism, chronic aspiration, s/p PEG 02/13 (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 Agustina Garcia LCSW [id number] * Nicole Ramirez - 04/17/2025 9:39 AM EDTAssociated Order(s): NURSING CONSULT TO DIETITIAN; IP CONSULT TO NUTRITION SERVICES NUTRITION INITIAL NOTE SUBJECTIVE: Lying in bed, reports eating is going poorly at [facility] & continues to lose weight. Reports getting tube feeds intermittently & sometimes takes puree POs. Endorses a UBW of 170 lbs months ago & a current weight of 153 lbs. Per phone-call discussion w/ RN at [facility], RNconfirms home tube feed regimen below, runs [...] 70.9 kg (sitting scale; 04/13/25) - per [facility] *anthros 88.1 kg ([facility]; 01/20/23) 97.5 [...] [facility] TwoCal HN @ 50 mL/hr [...] requiring tube feeds. Estimated Nutrition Needs: Calories: 8015-1258 kcal (25-30 kcal/kg) Protein: 85-106 g (1.2-1.5 g/kg) Fluids: 0499-5562 mL (25-30 mL/kg) Estimated Needs Calculated Usin.9 kg (156 lb 4.9 oz) (adjusted weight) Estimation of previous intake: Adequate Estimation of current intake: Adequate Specifics: 69M w/ PMHx significant for HTN, CKD, schizoaffective disorder, and drug-induced parkinsonism. Presented to [facility] on 04/15/25 w/ unresponsiveness, asphasia, & possible [...] on ad vancing POs at rehab. Appreciate energy rater of POs + tube feeds. Noted major [...] continue to follow, please message or page [phone] with any questions/concerns Signed by: Nicole Ramirez, MS, RD, LDN 04/17/25 1:13 PM * Laila Skelton RN - 04/17/2025 8:51 AM EDTAssociated Order(s): WOUND CONSULT Images from the original note were not included. Wound Care Consult Date of Service: 04/17/2025 Patient: Carter Raymundo : 1955 CSN: [id number] Location: [facility] med Room/Bed: 4S/4-2 Admit Date: 04/15/2025 [...] Wound Type - Irritant Contact Dermatitis: (c) Warp Hand Related: No Primar... Assessments 04/17/2025 8:00 AM [...] Mata MD - 04/16/2025 10:36 AM EDT [facility] PSYCHIATRIC CONSULTATION - INITIAL NOTE I performed [...] qHS. I spoke with patient's brother, Delvin ([phone]). Pt went to [facility] [place] [place]. Around the procedure, his clozapine dose was reduced from 175mg to 125mg. Thedose was never increased back to 175mg following the procedure. The pt developed worsening paranoia, I.e. worried criminals were hacking into his bank account. Last week, Delvin contacted his psychiatrist ([place]. Kayla Cor[place] [place] Clozapine dose was [...] 1.50 04/15/2025 Lab Results Component Value Date [id number] 04/15/2025 Lactic Acid 0.9 Last EKG ECG 12 lead Collection Time: 04/14/24 7:06 PM Result Value Ref Range Ventricular Heart Rate 91 BPM Atrial Heart Rate 91 BPM NJ Interval 146 ms QRSD Interval 100 ms QT Interval 390 ms QTC Interval 479 ms P [place] 43 degrees R [place] -27 degrees T Wave [place] 61 degrees Narrative --- Poor data quality, [...] 6:40 PM Narrative EXAMINATION: CTA HEAD/NECK STROKE [id number] CT HEAD NECK. INDICATION: 69-year-old male with [...] normal. CTA HEAD: The vessels of the sycuan of [place] and their principal intracranial branches [...] large vascular territory infarction or hemorrhage. ~~Patent sycuan of [place] without evidence of substantial stenosis or occlusion.~~Patent bilateral cervical carotid and vertebral arteries without evidence of stenosis >70% by NASCET criteria, occlusion, or dissection .~~Full read pending by neuroradiology. ~ Valentin Mena [id number]: BY ELECTRONICALLY SIGNING THIS REPORT, I THE [...] acute or recent infarction. HOME MEDICATIONS (per [facility]): -bupropion 100mg TID -clozapine 150mg QHS [...] of space Total score: 28 Premorbid Modified [place] Score: 4 - Moderately severe disability - unable to attend to own bodily needs without assistance and unable to walk unassisted Date: 04/15/25 Time: 6:58 PM Subjective Carter Raymundo is 69 y.o.M w/ HTN, PD, schizoaffective disorder, CKD who presents with aphasia andpossible L facial droop. Carter was found unresponsive at 5:30 PM at his [facility] after being at baseline at 4:15 PM. 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 Substance and Sexual Activity Alcohol Use No [...] 0.3 0.0 - 1.0 % Immature Granulocyte ([place], Myelo, Promyelocyte) 0.8 (H) 0.0 - 0.6 % Absolute Neutrophil Count 7.07 (H) 1.60 - 6.10 K/uL Absolute Lymphocyte Count 1.23 1.20 - 3.70 K/uL Absolute Monocyte Count 0.71 0.20 - 0.80 K/uL Absolute Eosinophil Count 0.00 (L) 0.04 - 0.54 K/uL Absolute Basophil Count 0.03 0.01 - 0.08 K/uL Absolute Immature Granulocyte ([place], Myelo, Promyelocyte) 0.07 0.00 - 0.09 K/uL ECG 12 lead Collection Time: 04/15/25 6:53 PM Result Value Ref Range Ventricular Heart Rate 98 BPM Atrial Heart Rate 98 BPM NJ Interval 156 ms QRSD Interval 108 ms QT Interval 392 ms QTC Interval 500 ms P [place] 63 degrees R [place] -23 degrees T Wave [place] [address]/CTA Head and Neck 04/15/25 WET READ: This is a wet read. Noncontrast CT head: [no evidence of acute large vascular territory infarction or hemorrhage.] Patent sycuan of [place] without evidence of substantial stenosis [...] MD, PhD PGY4 Child Neurology Residency Program [facility] Pager #[phone] ADDENDUM 04/16/25: MRI BRAIN WET READ: No [...] Ramirez. Yuridia??n P??renetta Lucero MD Neurology, PGY-3 [id number] Addendum (11:26 AM): Re-examined in AM, no additional workup from neurologic standpoint needed as above. We will sign off. Cecily Palafox MD PhD [facility] Neurology Rotator [1] Social History Tobacco Use [...] from the original note were not included. [facility] Department of Neurology NEUROLOGY ATTENDING CONSULT [...] LKW 1615, found altered at 1730 by [facility] staff. ?facial droop. Not answering questions. * Edwin Conner MD - 04/15/2025 6:10 PM EDT [facility] FA9 MEDICINE ED Provider Note Arrival Date: [...] Patient was brought in by EMS from [facility]. Per EMS patient was acting at [...] large vascular territory infarction or hemorrhage.] [place] without evidence of substantial stenosis [...] from the original note were not included. [facility] Case Management Discharge Note Estimated time of discharge: 5pm; BLS ambulance booked. CM discharge Plan: IP Psych Facility [facility] [address] [place] [id number] Case Management comments: Please send with AVS for acute, section 12 order. RN was provided handoff phone # by psych admissions team. Transportation: BLS MD will notify brother/HCP of discharge. Demetra White [facility] [phone] * Plan of Care - Yu Gunderson [...] Outcome: Progressing * Plan of Care - Rosailnda Montano RN - 06/22/2025 2:41 PM EDT [...] - 06/21/2025 5:55 AM EDT Alert, oriented. +NAPAIMUTE. Working on his writing during the beginning of the shift. VSS. Sat stable onRA. TF running via PEG, cycled [id number]. Meds crushed via PEG. Able to take [...] If CL Psychiatry is needed, please contact [phone] for overnight or weekend psychiatric emergencies. * [...] Progressing Problem: Behavior risks interference with medical safety director(s) and/or care Goal: Patient remains free from [...] Progressing Problem: Behavior risks interference with medical safety director(s) and/or care Goal: Patient remains free from [...] Progressing Problem: Behavior risks interference with medical safety director(s) and/or care Goal: Patient remains free from [...] Progressing Problem: Behavior risks interference with medical safety director(s) and/or care Goal: Patient remains free from [...] Progressing Problem: Behavior risks interference with medical safety director(s) and/or care Goal: Patient remains free from [...] Progressing Problem: Behavior risks interference with medical safety director(s) and/or care Goal: Patient remains free from [...] Progressing Problem: Behavior risks interference with medical safety director(s) and/or care Goal: Patient remains free from [...] Progressing Problem: Behavior risks interference with medical safety director(s) and/or care Goal: Patient remains free from [...] Progressing Problem: Behavior risks interference with medical safety director(s) and/or care Goal: Patient remains free from [...] no bm this shift Bed alarmed for industrial safety and health manager in place Problem: Pain - Adult Goal: [...] Progressing Problem: Behavior risks interference with medical safety director(s) and/or care Goal: Patient remains free from [...] Progressing Problem: Behavior risks interference with medical safety director(s) and/or care Goal: Patient remains free from [...] Progressing Problem: Behavior risks interference with medical safety director(s) and/or care Goal: Patient remains free from [...] Progressing Problem: Behavior risks interference with medical safety director(s) and/or care Goal: Patient remains free from [...] Progressing Problem: Behavior risks interference with medical safety director(s) and/or care Goal: Patient remains free from [...] Progressing Problem: Behavior risks interference with medical safety director(s) and/or care Goal: Patient remains free from [...] Progressing Problem: Behavior risks interference with medical safety director(s) and/or care Goal: Patient remains free from [...] Progressing Problem: Behavior risks interference with medical safety director(s) and/or care Goal: Patient remains free from [...] Shirley Barrios MD PGY2 - Psychiatry Pager: [phone] * Plan of Care - Rachna Stein [...] Progressing Problem: Behavior risks interference with medical safety director(s) and/or care Goal: Patient remains free from [...] Progressing Problem: Behavior risks interference with medical safety director(s) and/or care Goal: Patient remains free from [...] Progressing Problem: Behavior risks interference with medical safety director(s) and/or care Goal: Patient remains free from [...] Progressing Problem: Behavior risks interference with medical safety director(s) and/or care Goal: Patient remains free from [...] Progressing Problem: Behavior risks interference with medical safety director(s) and/or care Goal: Patient remains free from [...] Progressing Problem: Behavior risks interference with medical safety director(s) and/or care Goal: Patient remains free from [...] Progressing Problem: Behavior risks interference with medical safety director(s) and/or care Goal: Patient remains free from [...] CPT consult pending improved behaviors. Please page wet char conveyor tender PT with questions or concerns. Time: 946 Physical Therapist Name: Taylor Verde PT, DPT #[id number] Physical Therapist Pager: [phone] For questions please check the patient???s care [...] Progressing Problem: Behavior risks interference with medical safety director(s) and/or care Goal: Patient remains free from [...] from the original note were not included. [facility] Department of Medicine [facility] Trigger Note Patient: Carter Raymundo Attending of [...] minimally responsive to painful stimuli Clinical Assessment: Caretr Raymundo is a 69 y.o. male with [...] Progressing Problem: Behavior risks interference with medical safety director(s) and/or care Goal: Patient remains free from [...] Progressing Problem: Behavior risks interference with medical safety director(s) and/or care Goal: Patient remains free from [...] Progressing Problem: Behavior risks interference with medical safety director(s) and/or care Goal: Patient remains free from [...] Progressing Problem: Behavior risks interference with medical safety director(s) and/or care Goal: Patient remains free from [...] Progressing Problem: Behavior risks interference with medical safety director(s) and/or care Goal: Patient remains free from [...] Progressing Problem: Behavior risks interference with medical safety director(s) and/or care Goal: Patient remains free from [...] Progressing Problem: Behavior risks interference with medical safety director(s) and/or care Goal: Patient remains free from [...] Non-Medical), if any: PEG/TF Comments: Admitted from [facility] were he was for STR. Current plan is discharge to inpatient psych; on section 12, medically cleared. Psych team following. TF ordered via peg. CM following. Demetra White RNCM [phone] * Plan of Care - Manohar Meza [...] Progressing Problem: Behavior risks interference with medical safety director(s) and/or care Goal: Patient remains free from [...] Progressing Problem: Behavior risks interference with medical safety director(s) and/or care Goal: Patient remains free from [...] Progressing Problem: Behavior risks interference with medical safety director(s) and/or care Goal: Patient remains free from [...] Progressing Problem: Behavior risks interference with medical safety director(s) and/or care Goal: Patient remains free from [...] Progressing Problem: Behavior risks interference with medical safety director(s) and/or care Goal: Patient remains free from [...] Progressing Problem: Behavior risks interference with medical safety director(s) and/or care Goal: Patient remains free from [...] Progressing Problem: Behavior risks interference with medical safety director(s) and/or care Goal: Patient remains free from [...] Progressing Problem: Behavior risks interference with medical safety director(s) and/or care Goal: Patient remains free from [...] Progressing Problem: Behavior risks interference with medical safety director(s) and/or care Goal: Patient remains free from [...] about patient progress throughout the shift. At [facility] 1845, patient began thrashing around in bed and spitting at staff members in the room, IMAtivan administered Problem: Pain - Adult Goal: Verbalizes/displays adequate comfort level or baseline comfort level Outcome: Progressing Problem: Safety-Adult Goal: Free from fall injury Outcome: Progressing Problem: Coping Goal: Patient/family/caregiver able to verbalize concerns and demonstrate effective coping strategies Outcome: Not Progressing Problem: Behavior risks interference with medical safety director(s) and/or care Goal: Patient remains free from [...] staff and states that information in the [employer] is nonsense but is unable to [...] Mai RN - 05/13/2025 10:50 PM EDT [id number]. Pt cooperative with [employer]. 1:1 sitter at bedside. Safety maintained. Problem: [...] Non-Medical), if any: PEG/TF Comments: Admitted from [facility] were he was for STR. Current plan is discharge to inpatient psych; on section 12, medically cleared. Psych team following. TF ordered via peg. CM following. Demetra White RNCM [phone] * Plan of Care - Jaspreet Mai [...] Spoke with Marilyn Raygoza, patient's outpatient neurologist ([phone]) She has known patient for a few [...] Mr. Raymundo. Kimani Rivas MD Psychiatry PGY2 [id number] * Liaison Communication - Faith Keene MD [...] able to report back currently location at [facility] correctly; otherwise, unable to engage in further [...] the above [place] [phone] for additional recommendations. Per chart review, there [...] If ongoing agitation[place] [phone] for additional recommendations if un-responsive Faith Keene MD Psychiatry PGY2 Discussed case with PGY4 Eric Mg MD Addendum EKG: HR 95, QT 394, Bazett 496 ms, Lyons 451 ms, Doll 455 ms * Significant [...] be administered, MD aware. Pt repositioned by staff physical therapy assistant's and security. * Plan of Care - Arlene Best RN - 05/11/2025 7:08 PM EDT Alert. Pt verbally aggressive, making inappropriate and vulgar statements to staff. Pt attempting to be physically violent with staff. Accepted AM med pass after multiple attempts. Refused PM med pass. TF held from 2223-3669 as ordered. 1:1 sitter present this shift. [...] VSShannon RA. Disorganized thinking. TF held from 3084-1925 as [address]. Purewick in place collecting dark [...] Progressing Problem: Behavior risks interference with medical safety director(s) and/or care Goal: Patient remains free from [...] Progressing Problem: Behavior risks interference with medical safety director(s) and/or care Goal: Patient remains free from [...] Progressing Problem: Behavior risks interference with medical safety director(s) and/or care Goal: Patient remains free from [...] Progressing Problem: Behavior risks interference with medical safety director(s) and/or care Goal: Patient remains free from [...] Progressing Problem: Behavior risks interference with medical safety director(s) and/or care Goal: Patient remains free from behavior that interferes with medical devices and/or care and restraints are discontinued as soon as indicated Outcome: Not Progressing * Significant Event - Francesco Boyle MD - 05/07/2025 6:04 PM EDT Images from the original note were not included. [facility] Department of Medicine [facility] Trigger Note [...] MPH PGY-2, Internal Medicine - Primary Care [facility], [id number] * Care Coordination Note - Demetra White RN - 05/07/2025 3:06 PM EDT Images from the original note were not included. Case Management Continued Stay Note Has patient been discussed in MDR?:Yes Estimated Date of Discharge: medically cleared; pending inpatient psych bed Plan: I/P psych; section 12; 1:1 Anticipated barriers (Medical & Non-Medical), if any: PEG/TF Comments: Admitted from [facility] were he was for STR. Current plan is discharge to inpatient psych; on section 12, medically cleared. Psych team following. TF ordered via peg. CM following. Demetra White RNCM [phone] * Plan of Care - Param Beltrán [...] Progressing Problem: Behavior risks interference with medical safety director(s) and/or care Goal: Patient remains free from [...] Progressing Problem: Behavior risks interference with medical safety director(s) and/or care Goal: Patient remains free from [...] Progressing Problem: Behavior risks interference with medical safety director(s) and/or care Goal: Patient remains free from [...] Progressing Problem: Behavior risks interference with medical safety director(s) and/or care Goal: Patient remains free from [...] Progressing Problem: Behavior risks interference with medical safety director(s) and/or care Goal: Patient remains free from [...] Progressing Problem: Behavior risks interference with medical safety director(s) and/or care Goal: Patient remains free from [...] Progressing Problem: Behavior risks interference with medical safety director(s) and/or care Goal: Patient remains free from [...] s/p PEG tube placement who presented from [facility] with symptoms of decreased verbal output, [...] devised a plan to get out of [facility] by faking a stroke. He reports that this plan was a success and is adamant that he does not want to return to [facility], stating that he would prefer to [...] Progressing Problem: Behavior risks interference with medical safety director(s) and/or care Goal: Patient remains free from [...] Progressing Problem: Behavior risks interference with medical safety director(s) and/or care Goal: Patient remains free from [...] Non-Medical), if any: PEG/TF Comments: Admitted from [facility] were he was for STR. Current plan is discharge to inpatient psych; on section 12, when medically cleared. Psych team following. TF ordered via peg. CM following. Demetra White RNCM [phone] * Plan of Care - Angel Luis [...] Progressing Problem: Behavior risks interference with medical safety director(s) and/or care Goal: Patient remains free from [...] Progressing Problem: Behavior risks interference with medical safety director(s) and/or care Goal: Patient remains free from [...] Progressing Problem: Behavior risks interference with medical safety director(s) and/or care Goal: Patient remains free from behavior that interferes with medical devices and/or care and restraints are discontinued as soon as indicated Outcome: Progressing * Plan of Care - Angel Luis Frausto RN - 04/28/2025 8:46 AM [...] Progressing Problem: Behavior risks interference with medical safety director(s) and/or care Goal: Patient remains free from [...] Non-Medical), if any: PEG/TF Comments: Admitted from [facility] were he was for STR. Current plan is discharge to inpatient psych; on section 12. Psych team following. TF ordered via peg. Also ordered for modified PO diet. PT following. CM following. Demetra White RNCM [phone] * Plan of Care - Kadie Adams [...] from the original note were not included. [facility] Department of Medicine [facility] Trigger Note Patient: Carter Raymundo Attending of Record: Bonifacio Agudelo MD Location: [facility] Room/Bed: 4S/[facility]-2 Advanced Care Planning: Full Code. Clinician [...] Bonifacio Agudelo MD Section of Hospital Medicine [facility] * Significant Event - Rena Swift [...] RADIOLOGY OPERATIVE NOTE Procedure(s): G tube rescue Appointment Scheduler(s): MD Luiza Posada MD Pre-operative Diagnosis: Dysphagia [...] in 6 [place] [phone] for ANY questions or concerns. * Plan [...] with saline and covered with clean/dry/dressing. Radiology ACADEMY DIRECTOR was able to replace tube at bedside [...] from the original note were not included. [facility] Case Management Admission Note [facility] Transfer from an acute care hospital? No Readmission within 30 days? No Previously active with services? No Health Care Proxy in the chart?: Yes Guardian? No Cárdenas? No MOLST? No Workmen's Compensation? (If yes, please also indicate name of insurer, claim #, liability claims adjuster if applicable) No Notified [employer]?: No Vehicle Accident? (If yes, please also indicate name of insurer, claim #, liability claims adjuster if applicable) No Payor Concerns?: No Anticipated Case Management Action: The Nurse Decay Control Operator will continue to follow the patient and assist as needed if any post discharge needs should be required during this hospitalization. Has the patient, their sales solutions representative, or physician requested a discharge planning evaluation? Yes Was the patient discussed in Multidisciplinary Rounds (MDR)?: Yes Initial Care Coordination Assessment Patient: Carter Raymundo : 1955 Attending: Bonifacio Agudelo MD Admit Date: 04/15/2025 Inpatient Status Admit Date: 04/16/25 Primary Care Physician: Kilo Huynh Discharge Planning Lives with: Other (Comment) (permanent residence is [facility]; admitted from [facility] at [facility]) In the last 12 months, was there a time when you were not able to pay the mortgage or rent on time?: No Support Systems: Family members Type of Residence: alf facility, Assisted living Home Care Services: No [...] and participates with care. Patient admitted from [facility] where he was for STR. Spoke with MITESH Sterling ph: [phone] at [facility] who states that patient was receiving PT, OT and DISEASE EDUCATION SPECIALIST services; states that the was participatory and that they had been working to advance his diet so that he does not require TF. He lives at [facility] and they cannot care for a peg with TF. [facility] is able to accept back, pending [...] Consider starting BP medication. [] Re-evaluation with DISEASE EDUCATION SPECIALIST once he has had increased improvement in [...] he was medically stable and accepted at [facility] for continued psychiatric care and support. Carter [...] was able to work with PT and DISEASE EDUCATION SPECIALIST. However, at the same time he also [...] and SI. He was a ccepted to [facility] on 06/25. # Oropharyngeal Dysphagia with G-Tube [...] improvements in mental status, could re- consider DISEASE EDUCATION SPECIALIST and video swallow. Discussion with HCP that he hopes Carter will be eventually able to transition from the G tube back to PO after swallow therapy. DISEASE EDUCATION SPECIALIST conversation 06/11 with barium swallow - still aspirating but improvement from prior. Per DISEASE EDUCATION SPECIALIST onreview of his long history of dysphagia [...] Patient was brought in by EMS from [facility]. Brought here unresponsive initially activated code stroke [...] Ayala MD - 04/15/2025 6:10 PM EDT [facility] Emergency Department ED ATTESTATION NOTE I [...] CKD who presents with AMS. BIBEMS from [facility], [facility] 4:15pm. On room check at [...] large vascular territory infarction or hemorrhage.] Patent [place] of [place] without evidence of substantial stenosis [...] 13.5 (*) Eosinophil 0.0 (*) Immature Granulocyte ([place], Myelo, Promyelocyte) 0.8 (*) Absolute Neutrophil Count [...] RSV - Normal Narrative: Test performed by [employer] real-time PCR. BID UA WITH URINE CULTURE REFLEX Narrative: The following orders were created for panel order Urinalysis with Reflex to Urine Culture. Procedure Abnormality Status --------- ------ Urinalysis with Reflex t...[[id number]] Abnormal Final result Urine Micro Hold[[id number]] Final result Please view results for these tests on the individual orders. BID URINE HOLD TOXICOLOGY SCREEN, BLOOD POCT GLUCOSE, INSTRUMENT TYPE AND SCREEN BB RETYPE CBC AND DIFFERENTIAL Narrative: The following orders were created for panel order CBC and Differential. Procedure Abnormality Status --------- ------ CBC and Differential[[id number]] Abnormal Final result Please view results for these tests on the individual orders. RAINBOW DRAW RAINBOW DRAW Imaging I reviewed the following imaging studies: MRI Brain Without Contrast Final Result No acute intracranial abnormality. Specifically, no acute or recent infarction. WET READ: WET READ:~No acute intracranial abnormality. Angel Luis Tompkins [phone] [id number]. BY ELECTRONICALLY SIGNING THIS REPORT, I THE [...] large vascular territory infarction or hemorrhage. ~~Patent [place] of [place] without evidence of substantial stenosis or occlusion.~~Patent bilateral cervical carotid and vertebral arteries without evidence of stenosis >70% by NASCET criteria, occlusion, or dissection .~~Full read pending by neuroradiology. ~ Valentin Mena [id number]: BY ELECTRONICALLY SIGNING THIS REPORT, I THE ATTENDING PHYSICIAN ATTEST THAT I HAVE REVIEWED THE IMAGES FOR THE ABOVE PROCEDURE(S) AND AGREE WITH THE FINDINGS DOCUMENTED. Red Paovn MD, electronically signed on Apr 16 2025 [...] documented in this encounter Plan of Treatment Pending Results Name Type Priority Associated Diagnoses Date /Time ECG 12 lead ECG Routine Abnormal electrocardiography 06/25/2025 11:19 AM EDT Scheduled Orders Name Type Priority Associated Diagnoses Order Schedule IR Follow-Up Appointment Imaging Routine Aspiration into airway, sequela Ordered: 05/12/2025 IR Follow-Up Appointment Imaging Routine Aspiration pneumonitis (HCC) Expected: 08/12/2025 (Approximate), Expires: 05/12/2026 Nursing perform POCT glucose Point of Care Testing-Docked Device Routine As Needed until discontinued starting 2025 Chest physiotherapy (Manual Percussion and Vibration) Respiratory Care Routine 4X Daily until discontinued starting 05/28/2025 Renal Function Panel Lab Timed Week ly until discontinued starting 06/22/2025, 1 completed CBC and Differential Lab Panel Timed Week ly until discontinued starting 06/22/2025, 1 completed documented as of this encounter Procedures Procedure Name Priority Date/Time Associated Diagnosis Comments ECG 12-LEAD Routine 06/25/2025 11:19 AM EDT Abnormal electrocardiography Procedure Note - 06/25/2025 11:19 AM EDTThis note is in progress. Sinus tachycardia left ventricular hypertrophy Abnormal ECG When compared with ECG of 18-Jun-2025 11:53, No significant change was found RENAL FUNCTION PANEL Timed 06/22/2025 5:26 AM EDT CBC AND DIFFERENTIAL Timed 06/22/2025 12:37 AM EDT CBC AND DIFFERENTIAL Timed 06/22/2025 12:37 AM EDT ECG 12-LEAD Routine 06/18/2025 11:54 AM EDT Abnormal electrocardiography XR ABDOMEN AP Routine 06/16/2025 1:33 PM EDT VALPROIC ACID LEVEL Routine 06/15/2025 9:42 PM EDT CLOZAPINE LEVEL,BLOOD Routine 06/15/2025 9:41 [...] ECG 12-LEAD Routine 06/11/2025 11:23 AM EDT terminal makeup operator current use of therapeutic drug FL MODIFIED [...] 5:53 AM EDT C-REACTIVE PROTEIN Routine 05/28/2025 5:53 AM EDT PHOSPHORUS Timed 05/28/2025 5:53 AM [...] EDT CT HEAD WO CONTRAST STAT 2025 8:54 PM EDT LACTIC ACID WITH REFLEX STAT 2025 8:28 PM EDT BLOOD GAS, VENOUS STAT 2025 8:28 PM EDT CBC STAT 2025 8:23 PM [...] ECG 12-LEAD Routine 05/25/2025 12:17 PM EDT longterm current use of therapeutic drug VALPROIC ACID LEVEL Routine 05/25/2025 7:32 AM EDT RENAL FUNCTION PANEL Timed 05/25/2025 [...] PM EDT XR PORTABLE ABDOMEN STAT 05/12/2025 6:34 PM EDT IR G TUBE RESCUE Routine [...] AM EDT XR PORTABLE ABDOMEN Routine 05/02/2025 5:10 PM EDT EEG CONCLUDE STUDY Routine 05/01/2025 11:03 AM EDT HC VEEG BY [employer] EA INCR 12-26 HR UNMONITORED Routine 05/01/2025 [...] 04/23/2025 7:21 AM EDT HC VEEG BY [employer] EA INCR 12-26 HR UNMONITORED Routine 04/23/2025 [...] AM EDT XR PORTABLE ABDOMEN Routine 04/19/2025 6:48 PM EDT IR G TUBE RESCUE Routine [...] 7:40 AM EDT C-REACTIVE PROTEIN Routine 04/17/2025 7:40 AM EDT PHOSPHORUS Timed 04/17/2025 7:40 AM [...] AM EDT DRUG SCREEN, URINE STAT 04/16/2025 6:54 AM EDT URINALYSIS WITH URINE CULTURE REFLEX [...] EDT documented in this encounter Results * (ABNORMAL) Renal Function Panel (06/22/2025 5:26 AM EDT) Sodium 142 135 - 147 mmol/L 06/22/2025 6:44 AM EDT [facility] Potassium 4.2 3.5 - 5.4 mmol/L 06/22/2025 6:44 AM EDT [facility] Chloride 103 96 - 108 mmol/L 06/22/2025 6:44 AM EDT [facility] Total CO2/Bicarbonate 28 22 - 32 mmol/L 06/22/2025 6:44 AM EDT [facility] Anion Gap 11 10 - 18 mmol/L 06/22/2025 6:44 AM EDT [facility] BUN 27(H) 6 - 20 mg/dL 06/22/2025 6:44 AM EDT [facility] Creatinine, Blood 0.80 0.50 - 1.20 mg/dL 06/22/2025 6:44 AM EDT [facility] Glucose, Blood 141(H) 70 - 100 mg/dL 06/22/2025 6:44 AM EDT [facility] Calcium 9.0 8.4 - 10.3 mg/dL 06/22/2025 6:44 AM T [facility] Albumin, Blood 3.1(L) 3.5 - 5.2 g/dL 06/22/2025 6:44 AM EDT [facility] Phosphorus 3.7 2.7 - 4.5 mg/dL 06/22/2025 6:44 AM T [facility] Magnesium, Blood 2.2 1.6 - 2.6 mg/dL 06/22/2025 6:44 AM EDT [facility] Estimated GFR(CKD-EPI) 96 mL/min/BSA 06/22/2025 6:44 AM T [facility] Blood PERIPHERAL BLOOD SPECIMEN / Unknown Venipuncture / Unknown 06/22/2025 5:26 AM EDT 06/22/2025 5:47 AM EDT Govind Olivo MD LAB BLOOD ORDERABLES Final Result [facility] [address] [place] [address], [place] * (ABNORMAL) CBC and Differential (06/22/2025 12:37 AM EDT) WBC 6.62 4.00 - 10.00 K/uL 06/22/2025 1:15 AM EDT [facility] RBC 3.67(L) 4.60 - 6.10 M/uL 06/22/2025 1:15 AM EDT [facility] Hemoglobin 11.3(L) 13.7 - 17.5 g/dL 06/22/2025 1:15 AM EDT [facility] Hematocrit 34.7(L) 40.0 - 51.0 % 06/22/2025 1:15 AM EDT [facility] MCV 95 82 - 98 fL 06/22/2025 1:15 AM EDT [facility] MCH 30.8 26.0 - 32.0 pg 06/22/2025 1:15 AM EDT [facility] MCHC 32.6 32.0 - 37.0 g/dL 06/22/2025 1:15 AM EDT [facility] RDW 15.5 10.5 - 15.5 % 06/22/2025 1:15 AM EDT [facility] RDW-SD 53.1(H) 35.1 - 46.3 fL 06/22/2025 1:15 AM EDT [facility] Platelet Count 185 150 - 400 K/uL 06/22/2025 1:15 AM EDT [facility] Nucleated RBC 0 <=0 #/100 WBC 06/22/2025 1:15 AM EDT [facility] Neutrophil 67.5 34.0 - 71.0 % 06/22/2025 1:15 AM EDT [facility] Lymphocyte 20.1 19.0 - 53.0 % 06/22/2025 1:15 AM EDT [facility] Monocyte 10.6 5.0 - 13.0 % 06/22/2025 1:15 AM EDT [facility] Eosinophil 0.0(L) 1.0 - 7.0 % 06/22/2025 1:15 AM EDT [facility] Basophil 0.3 0.0 - 1.0 % 06/22/2025 1:15 AM EDT [facility] Immature Granulocyte ([place], Myelo, Promyelocyte) 1.5(H) 0.0 - 0.6 % 06/22/2025 1:15 AM EDT [facility] Absolute Neutrophil Count 4.47 1.60 - 6.10 K/uL 06/22/2025 1:15 AM EDT [facility] Absolute Lymphocyte Count 1.33 1.20 - 3.70 K/uL 06/22/2025 1:15 AM EDT [facility] Absolute Monocyte Count 0.70 0.20 - 0.80 K/uL 06/22/2025 1:15 AM EDT [facility] Absolute Eosinophil Count 0.00(L) 0.04 - 0.54 K/uL 06/22/2025 1:15 AM EDT [facility] Absolute Basophil Count 0.02 0.01 - 0.08 K/uL 06/22/2025 1:15 AM EDT [facility] Absolute Immature Granulocyte ([place], Myelo, Promyelocyte) 0.10(H) 0.00 - 0.09 K/uL 06/22/2025 1:15 AM EDT [facility] Blood PERIPHERAL BLOOD SPECIMEN / Unknown Venipuncture / Unknown 06/22/2025 12:37 AM EDT 06/22/2025 1:04 AM EDT us Govind Olivo MD LAB BLOOD ORDERABLES Final Result [facility] [address] [place] [address], * ECG 12 lead (06/18/2025 11:54 AM EDT) Ventricular Heart Rate 101 BPM EKG BUR MUSE Atrial Heart Rate 101 BPM EKG BUR MUSE [place] Interval 142 ms EKG BUR MUSE QRSD Interval 98 ms EKG BUR MUSE QT Interval 376 ms EKG BUR MUSE QTC Interval 487 ms EKG BUR MUSE P [place] 43 degrees EKG BUR MUSE R [place] -26 degrees EKG BUR MUSE T Wave [place] 56 degrees EKG BUR MUSE 06/18/2025 11:5 [...] Olivo MD ECG ORDERABLES Final Resul t Performing Organization Address City/State/[facility] Co de Phone Number EKG BUR MUSE [address] [place] [phone] * XR Abdomen 1 VW (06/16/2025 1:33 [...] electronically signed on Jun 16 2025 04:33PM us Govind Olivo MD IMG DIAGNOSTIC IMAGING [facility] Final Result * (ABNORMAL) Valproic Acid Level (06/15/2025 9:42 PM EDT) Valproic Acid Level, Blood 49(L) 50 - 100 ug/mL 06/15/2025 10:29 PM EDT [facility] Blood PERIPHERAL BLOOD SPECIMEN / Unknown Venipuncture / Unknown 06/15/2025 9:42 PM EDT 06/15/2025 9:45 PM EDT Govind Olivo MD LAB BLOOD ORDERABLES Final Result [facility] [address] [place] [address], * Clozapine Level, Blood (06/15/2025 9:41 PM EDT) Norclozapine 88 25 - 400 mcg/L 06/19/2025 3:00 PM EDT ADRIANA FONTANA [place] Clozapine 224 mcg/L 06/19/2025 3:00 PM EDT ADRIANA FONTANA [place] Comment: The therapeutic response begins to appear at 100 mcg/L. Refractory schizophrenia appears to require a therapeutic concentration of at least 350 mcg/L (trough, at steady state). Toxic range: Greater than 900 mcg/L This test was developed and its analytical performance characteristics have been determined by [employer] [place], [place]. It has not been cleared or approved by the U.S. Food and Drug Administration. This assay has been validated pursuant to the CLIA regulations and is used for clinical purposes. Blood PERIPHERAL BLOOD SPECIMEN / Unknown Venipuncture / Unknown 06/15/2025 9:41 PM EDT 06/15/2025 9:45 PM EDT Alyson ADRIANA FONTANA [place] - 06/19/2025 3:00 PM EDT Performing Organization Information: Site ID: [id number] Name: [employer] Address: [address] [place] [address] Director: LEONEL RUIZ MD,PHD Govind Olivo MD LAB BLOOD ORDERABLES Final Result ADRIANA FONTANA [place] [address] [place] [address], * Valproic Acid Level, Free (06/15/2025 9:41 PM EDT) Valproic Acid, Free 13.7 4.8 - 17.3 mg/L 06/19/2025 3:00 PM EDT ADRIANA FONTANA [place] Comment: Nonlinear drug binding properties result in the fraction of free valproic acid increasing as total drug increases. The free valproic acid fraction may range from 5% to 25% for the total drug range of 30-160 mg/L. Blood PERIPHERAL BLOOD SPECIMEN / Unknown Venipuncture / Unknown 06/15/2025 9:41 PM EDT 06/15/2025 9:45 PM EDT Alyson ADRIANA FONTANA [place] - 06/19/2025 3:00 PM EDT Performing Organization Information: Site ID: [id number] Name: [employer] Address: [address] [place] [id number] Director: FIDEL CRAWFORD MD Govind Olivo MD LAB BLOOD ORDERABLES Final Result Performing Organization Address [facility] Co de Phone Number ADRIANA [address] [address], * ECG 12 lead (06/15/2025 12:56 PM EDT) Ventricular Heart Rate 97 BPM EKG BUR MUSE Atrial Heart Rate 97 BPM EKG BUR MUSE [place] Interval 142 ms EKG BUR MUSE QRSD Interval 104 ms EKG BUR MUSE QT Interval 382 ms EKG BUR MUSE QTC Interval 485 ms EKG BUR MUSE P [place] 76 degrees EKG BUR MUSE R [place] -33 degrees EKG BUR MUSE T Wave [place] 69 degrees EKG BUR MUSE 06/15/2025 12:5 [...] Olivo MD ECG ORDERABLES Final Resul t Performing Organization Address City/[facility]/ZIP Co de Phone Number EKG BUR MUSE [address] [place] [phone] * (ABNORMAL) CBC (06/15/2025 6:23 AM EDT) WBC 8.69 4.00 - 10.00 K/uL 06/15/2025 6:52 AM EDT [facility] RBC 3.83(L) 4.60 - 6.10 M/uL 06/15/2025 6:52 AM EDT [facility] Hemoglobin 11.6(L) 13.7 - 17.5 g/dL 06/15/2025 6:52 AM EDT [facility] Hematocrit 36.2(L) 40.0 - 51.0 % 06/15/2025 6:52 AM EDT [facility] MCV 95 82 - 98 fL 06/15/2025 6:52 AM EDT [facility] MCH 30.3 26.0 - 32.0 pg 06/15/2025 6:52 AM EDT [facility] MCHC 32.0 32.0 - 37.0 g/dL 06/15/2025 6:52 AM EDT [facility] RDW 14.5 10.5 - 15.5 % 06/15/2025 6:52 AM EDT [facility] RDW-SD 49.3(H) 35.1 - 46.3 fL 06/15/2025 6:52 AM EDT [facility] Platelet Count 256 150 - 400 K/uL 06/15/2025 6:52 AM EDT [facility] Nucleated RBC 0 <=0 #/100 WBC 06/15/2025 6:52 AM EDT [facility] Blood PERIPHERAL BLOOD SPECIMEN / Unknown Venipuncture / Unknown 06/15/2025 6:23 AM EDT 06/15/2025 6:36 AM EDT us Urban Mondragon MD LAB BLOOD ORDERABLES Final Resul t [facility] [address] [place] [address], * Phosphorus (06/15/2025 6:22 AM EDT) Phosphorus 3.4 2.7 - 4.5 mg/dL 06/15/2025 7:14 AM EDT [facility] Blood PERIPHERAL BLOOD SPECIMEN / Unknown Venipuncture / Unknown 06/15/2025 6:22 AM EDT 06/15/2025 6:36 AM EDT Urban Mondragon MD LAB BLOOD ORDERABLES Final Resul t Performing Organization Address City/[facility]/ZIP Co de Phone Number [facility] [address] [place] [address], [place] * Magnesium (06/15/2025 6:22 AM EDT) Magnesium, Blood 2.1 1.6 - 2.6 mg/dL 06/15/2025 7:14 AM EDT [facility] Blood PERIPHERAL BLOOD SPECIMEN / Unknown Venipuncture / Unknown 06/15/2025 6:22 AM EDT 06/15/2025 6:36 AM EDT Urban Mondragon MD LAB BLOOD ORDERABLES Final Resul t Performing Organization Address City/[facility]/ZIP Co de Phone Number [facility] [address] [place] [address], [place] * (ABNORMAL) Basic Metabolic Panel (06/15/2025 6:22 AM EDT) Sodium 142 135 - 147 mmol/L 06/15/2025 7:14 AM EDT [facility] Potassium 4.2 3.5 - 5.4 mmol/L 06/15/2025 7:14 AM EDT [facility] Chloride 104 96 - 108 mmol/L 06/15/2025 7:14 AM EDT [facility] Total CO2/Bicarbonat e 29 22 - 32 mmol/L 06/15/2025 7:14 AM EDT [facility] Anion Gap 9(L) 10 - 18 mmol/L 06/15/2025 7:14 AM EDT [facility] BUN 28(H) 6 - 20 mg/dL 06/15/2025 7:14 AM EDT [facility] Creatinine, Blood 0.90 0.50 - 1.20 mg/dL 06/15/2025 7:14 AM EDT [facility] Glucose, Blood 109(H) 70 - 100 mg/dL 06/15/2025 7:14 AM EDT [facility] Calcium 8.9 8.4 - 10.3 mg/dL 06/15/2025 7:14 AM EDT [facility] Blood PERIPHERAL BLOOD SPECIMEN / Unknown Venipuncture / Unknown 06/15/2025 6:22 AM EDT 06/15/2025 6:36 AM EDT Urban Mondragon MD LAB BLOOD ORDERABLES Final Resul t [facility] [address] [place] [address], [place] * (ABNORMAL) Hepatic Function Panel (06/15/2025 6:22 AM EDT) Total Protein 5.9(L) 6.4 - 8.3 g/dL 06/15/2025 7:32 AM EDT [facility] Albumin, Blood 2.9(L) 3.5 - 5.2 g/dL 06/15/2025 7:32 AM EDT [facility] Globulin Result 3.0 2.0 - 4.0 g/dL 06/15/2025 7:32 AM EDT [facility] Total Bilirubin 0.2 0.0 - 1.5 mg/dL 06/15/2025 7:32 AM EDT [facility] Direct Bilirubin <0.1 0.0 - 0.3 mg/dL 06/15/2025 7:32 AM EDT [facility] Alkaline Phosphatase 117 40 - 130 U/L 06/15/2025 7:32 AM EDT [facility] AST (SGOT) 22 0 - 40 U/L 06/15/2025 7:32 AM EDT [facility] ALT (SGPT) 14 0 - 40 U/L 06/15/2025 7:32 AM EDT [facility] Blood PERIPHERAL BLOOD SPECIMEN / Unknown Venipuncture / Unknown 06/15/2025 6:22 AM EDT 06/15/2025 6:36 AM EDT Urban Mondragon MD LAB BLOOD ORDERABLES Final Resul t [facility] [address] [place] [address], [place] * Phosphorus (06/12/2025 6:57 AM EDT) Phosphorus 3.0 2.7 - 4.5 mg/dL 06/12/2025 8:03 AM EDT [facility] Blood PERIPHERAL BLOOD SPECIMEN / Unknown Venipuncture / Unknown 06/12/2025 6:57 AM EDT 06/12/2025 7:22 AM EDT us Urban Mondragon MD LAB BLOOD ORDERABLES Final Resul t Performing Organization Address City/[facility]/ZIP Co de Phone Number [facility] [address] [place] [address], [place] * Magnesium (06/12/2025 6:57 AM EDT) Pathologist [facility] Magnesium, Blood 2.2 1.6 - 2.6 mg/dL 06/12/2025 8:03 AM EDT [facility] Blood PERIPHERAL BLOOD SPECIMEN / Unknown Venipuncture / Unknown 06/12/2025 6:57 AM EDT 06/12/2025 7:22 AM EDT us Urban Mondragon MD LAB BLOOD ORDERABLES Final Resul t Performing Organization Address City/[facility]/ZIP Co de Phone Number [facility] [address] [place] [address], [place] * (ABNORMAL) Basic Metabolic Panel (06/12/2025 6:57 AM EDT) Sodium 142 135 - 147 mmol/L 06/12/2025 8:03 AM EDT [facility] Potassium 4.1 3.5 - 5.4 mmol/L 06/12/2025 8:03 AM EDT [facility] Chloride 104 96 - 108 mmol/L 06/12/2025 8:03 AM EDT [facility] Total CO2/Bicarbonat e 29 22 - 32 mmol/L 06/12/2025 8:03 AM EDT [facility] Anion Gap 9(L) 10 - 18 mmol/L 06/12/2025 8:03 AM EDT [facility] BUN 28(H) 6 - 20 mg/dL 06/12/2025 8:03 AM EDT [facility] Creatinine, Blood 0.90 0.50 - 1.20 mg/dL 06/12/2025 8:03 AM EDT [facility] Glucose, Blood 128(H) 70 - 100 mg/dL 06/12/2025 8:03 AM EDT [facility] Calcium 9.0 8.4 - 10.3 mg/dL 06/12/2025 8:03 AM EDT [facility] Blood PERIPHERAL BLOOD SPECIMEN / Unknown Venipuncture / Unknown 06/12/2025 6:57 AM EDT 06/12/2025 7:22 AM EDT us Urban Mondragon MD LAB BLOOD ORDERABLES Final Resul t [facility] [address] [place] [address], * (ABNORMAL) Hepatic Function Panel (06/12/2025 6:57 AM EDT) Total Protein 6.0(L) 6.4 - 8.3 g/dL 06/12/2025 8:03 AM EDT [facility] Albumin, Blood 3.0(L) 3.5 - 5.2 g/dL 06/12/2025 8:03 AM EDT [facility] Globulin Result 3.0 2.0 - 4.0 g/dL 06/12/2025 8:03 AM EDT [facility] Total Bilirubin 0.2 0.0 - 1.5 mg/dL 06/12/2025 8:03 AM EDT [facility] Direct Bilirubin 0.1 0.0 - 0.3 mg/dL 06/12/2025 8:03 AM EDT [facility] Alkaline Phosphatase 123 40 - 130 U/L 06/12/2025 8:03 AM EDT [facility] AST (SGOT) 18 0 - 40 U/L 06/12/2025 8:03 AM EDT [facility] ALT (SGPT) 13 0 - 40 U/L 06/12/2025 8:03 AM EDT [facility] Blood PERIPHERAL BLOOD SPECIMEN / Unknown Venipuncture / Unknown 06/12/2025 6:57 AM EDT 06/12/2025 7:22 AM EDT us Urban Mondragon MD LAB BLOOD ORDERABLES Final Resul t [facility] [address] [place] [address], [place] * (ABNORMAL) CBC (06/12/2025 6:57 AM EDT) WBC 11.56(H) 4.00 - 10.00 K/uL 06/12/2025 7:48 AM EDT [facility] RBC 3.91(L) 4.60 - 6.10 M/uL 06/12/2025 7:48 AM EDT [facility] Hemoglobin 12.0(L) 13.7 - 17.5 g/dL 06/12/2025 7:48 AM EDT [facility] Hematocrit 37.1(L) 40.0 - 51.0 % 06/12/2025 7:48 AM EDT [facility] MCV 95 82 - 98 fL 06/12/2025 7:48 AM EDT [facility] MCH 30.7 26.0 - 32.0 pg 06/12/2025 7:48 AM EDT [facility] MCHC 32.3 32.0 - 37.0 g/dL 06/12/2025 7:48 AM EDT [facility] RDW 13.9 10.5 - 15.5 % 06/12/2025 7:48 AM EDT [facility] RDW-SD 46.5(H) 35.1 - 46.3 fL 06/12/2025 7:48 AM EDT [facility] Platelet Count 312 150 - 400 K/uL 06/12/2025 7:48 AM EDT [facility] Nucleated RBC 0 <=0 #/100 WBC 06/12/2025 7:48 AM EDT [facility] Blood PERIPHERAL BLOOD SPECIMEN / Unknown Venipuncture / Unknown 06/12/2025 6:57 AM EDT 06/12/2025 7:23 AM EDT Urban Mondragon MD LAB BLOOD ORDERABLES Final Resul t Performing Organization Address [facility] Co de Phone Number [facility] [address] [place] [address], * (ABNORMAL) POCT Glucose (06/11/2025 1:54 PM EDT) Pathologist [facility] Glucose, POC 118(H) 70 - 100 mg/dL 06/11/2025 2:05 PM EDT [facility] Comment: @Serial Dabejd=[id number] @Appointment Scheduler CP=[id number] Blood 06/11/2025 1:54 PM EDT 06/11/2025 2:05 PM EDT Feliciano Choi MD POCT ORDERABLES - DEVICE Patricia l Result Performing Organization Address [facility] Co de Phone Number [facility] [address] [place] [address], [place] * ECG 12 lead (06/11/2025 11:23 AM EDT) [facility] Signature Ventricular Heart Rate 87 BPM EKG BUR MUSE Atrial Heart Rate 87 BPM EKG BUR MUSE NJ Interval 136 ms EKG BUR MUSE QRSD Interval 98 ms EKG BUR MUSE QT Interval 402 ms EKG BUR MUSE QTC Interval 483 ms EKG BUR MUSE P [place] 68 degrees EKG BUR MUSE R [place] -31 degrees EKG BUR MUSE T Wave [place] 39 degrees EKG BUR MUSE 06/11/2025 11:2 [...] 04-Jun-2025 05:14, No significant change was found us Feliciano Choi MD ECG ORDERABLES Final Result EKG KATH [address] [address] * [place] Modified Barium Swallow Incl Speech [...] a standalone note by the Speech-Language Pathologist (Epic, Notes, Speech Pathology). BY ELECTRONICALLY SIGNING THIS [...] in astandalone note by the Speech-Language Pathologist ([facility], Notes, SpeechPathology). BY ELECTRONICALLY SIGNING THIS REPORT, [...] - 10.00 K/uL 06/10/2025 9:52 AM EDT [facility] Neutrophil 85.5(H) 34.0 - 71.0 % 06/10/2025 9:52 AM EDT [facility] Lymphocyte 7.7(L) 19.0 - 53.0 % 06/10/2025 9:52 AM EDT [facility] Monocyte 5.6 5.0 - 13.0 % 06/10/2025 9:52 AM EDT [facility] Eosinophil 0.0(L) 1.0 - 7.0 % 06/10/2025 9:52 AM EDT [facility] Basophil 0.4 0.0 - 1.0 % 06/10/2025 9:52 AM EDT [facility] Nucleated RBC 0 <=0 #/100 WBC 06/10/2025 9:52 AM EDT [facility] Absolute Neutrophil Count 16.18(H) 1.60 - 6.10 K/uL 06/10/2025 9:52 AM EDT [facility] Absolute Lymphocyte Count 1.45 1.20 - 3.70 K/uL 06/10/2025 9:52 AM EDT [facility] Absolute Monocyte Count 1.06(H) 0.20 - 0.80 K/uL 06/10/2025 9:52 AM EDT [facility] Absolute Eosinophil Count 0.00(L) 0.04 - 0.54 K/uL 06/10/2025 9:52 AM EDT [facility] Absolute Basophil Count 0.07 0.01 - 0.08 K/uL 06/10/2025 9:52 AM EDT [facility] Immature Granulocyte ([place], Myelo, Promyelocyte) 0.8(H) 0.0 - 0.6 % 06/10/2025 9:52 AM EDT [facility] Absolute Immature Granulocyte ([place], Myelo, Promyelocyte) 0.16(H) 0.00 - 0.09 K/uL 06/10/2025 9:52 AM EDT [facility] Blood PERIPHERAL BLOOD SPECIMEN / Unknown Venipuncture / Unknown 06/10/2025 7:20 AM EDT 06/10/2025 7:30 AM EDT us Feliciano Choi MD LAB BLOOD ORDERABLES Final Re sult [facility] [address] [place] [address], [place] * Phosphorus (06/10/2025 7:20 AM EDT) Phosphorus 3.0 2.7 - 4.5 mg/dL 06/10/2025 8:03 AM EDT [facility] Blood PERIPHERAL BLOOD SPECIMEN / Unknown Venipuncture / Unknown 06/10/2025 7:20 AM EDT 06/10/2025 7:30 AM EDT us Urban Mondragon MD LAB BLOOD ORDERABLES Final Resul t [facility] [address] [place] [address], [place] * Magnesium (06/10/2025 7:20 AM EDT) Magnesium, Blood 2.3 1.6 - 2.6 mg/dL 06/10/2025 8:03 AM EDT [facility] Blood PERIPHERAL BLOOD SPECIMEN / Unknown Venipuncture / Unknown 06/10/2025 7:20 AM EDT 06/10/2025 7:30 AM EDT us Urban Mondragon MD LAB BLOOD ORDERABLES Final Resul t Performing Organization Address City/[facility]/ZIP Co de Phone Number [facility] [address] [place] [address], [place] * (ABNORMAL) Basic Metabolic Panel (06/10/2025 7:20 AM EDT) Pathologist [facility] Sodium 142 135 - 147 mmol/L 06/10/2025 8:03 AM EDT [facility] Potassium 4.2 3.5 - 5.4 mmol/L 06/10/2025 8:03 AM EDT [facility] Chloride 105 96 - 108 mmol/L 06/10/2025 8:03 AM EDT [facility] Total CO2/Bicarbonat e 28 22 - 32 mmol/L 06/10/2025 8:03 AM EDT [facility] Anion Gap 9(L) 10 - 18 mmol/L 06/10/2025 8:03 AM EDT [facility] BUN 35(H) 6 - 20 mg/dL 06/10/2025 8:03 AM EDT [facility] Creatinine, Blood 0.90 0.50 - 1.20 mg/dL 06/10/2025 8:03 AM EDT [facility] Glucose, Blood 161(H) 70 - 100 mg/dL 06/10/2025 8:03 AM EDT [facility] Calcium 8.8 8.4 - 10.3 mg/dL 06/10/2025 8:03 AM EDT [facility] Blood PERIPHERAL BLOOD SPECIMEN / Unknown Venipuncture / Unknown 06/10/2025 7:20 AM EDT 06/10/2025 7:30 AM EDT us Urban Mondragon MD LAB BLOOD ORDERABLES Final Resul t Performing Organization Address City/[facility]/ZIP Co de Phone Number [facility] [address] [place] [address], [place] * (ABNORMAL) Hepatic Function Panel (06/10/2025 7:20 AM EDT) Total Protein 6.3(L) 6.4 - 8.3 g/dL 06/10/2025 8:03 AM EDT [facility] Albumin, Blood 3.0(L) 3.5 - 5.2 g/dL 06/10/2025 8:03 AM EDT [facility] Globulin Result 3.3 2.0 - 4.0 g/dL 06/10/2025 8:03 AM EDT [facility] Total Bilirubin 0.2 0.0 - 1.5 mg/dL 06/10/2025 8:03 AM EDT [facility] Direct Bilirubin 0.1 0.0 - 0.3 mg/dL 06/10/2025 8:03 AM EDT [facility] Alkaline Phosphatase 125 40 - 130 U/L 06/10/2025 8:03 AM EDT [facility] AST (SGOT) 19 0 - 40 U/L 06/10/2025 8:03 AM EDT [facility] ALT (SGPT) 13 0 - 40 U/L 06/10/2025 8:03 AM EDT [facility] Blood PERIPHERAL BLOOD SPECIMEN / Unknown Venipuncture / Unknown 06/10/2025 7:20 AM EDT 06/10/2025 7:30 AM EDT us Urban Mondragon MD LAB BLOOD ORDERABLES Final Resul t Performing Organization Address City/[facility]/ZIP Co de Phone Number [facility] [address] [place] [address], [place] * (ABNORMAL) CBC (06/10/2025 7:20 AM EDT) WBC 19.00(H) 4.00 - 10.00 K/uL 06/10/2025 7:55 AM EDT [facility] RBC 4.13(L) 4.60 - 6.10 M/uL 06/10/2025 7:55 AM EDT [facility] Hemoglobin 12.8(L) 13.7 - 17.5 g/dL 06/10/2025 7:55 AM EDT [facility] Hematocrit 38.9(L) 40.0 - 51.0 % 06/10/2025 7:55 AM EDT [facility] MCV 94 82 - 98 fL 06/10/2025 7:55 AM EDT [facility] MCH 31.0 26.0 - 32.0 pg 06/10/2025 7:55 AM EDT [facility] MCHC 32.9 32.0 - 37.0 g/dL 06/10/2025 7:55 AM EDT [facility] RDW 13.7 10.5 - 15.5 % 06/10/2025 7:55 AM EDT [facility] RDW-SD 45.8 35.1 - 46.3 fL 06/10/2025 7:55 AM EDT [facility] Platelet Count 307 150 - 400 K/uL 06/10/2025 7:55 AM EDT [facility] Nucleated RBC 0 <=0 #/100 WBC 06/10/2025 7:55 AM EDT [facility] Blood PERIPHERAL BLOOD SPECIMEN / Unknown Venipuncture / Unknown 06/10/2025 7:20 AM EDT 06/10/2025 7:30 AM EDT us Urban Mondragon MD LAB BLOOD ORDERABLES Final Resul t [facility] [address] [place] [address], * (ABNORMAL) POCT Glucose (06/08/2025 12:13 PM EDT) Glucose, POC 132(H) 70 - 100 mg/dL 06/08/2025 1:24 PM EDT [facility] Comment: @Serial Ntrpyf=[id number] @Appointment Scheduler LZ=[id number] Blood 06/08/2025 12:1 3 PM EDT 06/08/2025 1:24 PM EDT Feliciano Choi MD POCT ORDERABLES - DEVICE Patricia l Result Performing Organization Address City/[facility]/ZIP Co de Phone Number [facility] [address] [place] [address], [place] * Phosphorus (06/08/2025 7:52 AM EDT) Phosphorus 2.9 2.7 - 4.5 mg/dL 06/08/2025 8:57 AM EDT [facility] Blood PERIPHERAL BLOOD SPECIMEN / Unknown Venipuncture / Unknown 06/08/2025 7:52 AM EDT 06/08/2025 7:58 AM EDT Urban Mondragon MD LAB BLOOD ORDERABLES Final Resul t Performing Organization Address City/[facility]/ZIP Co de Phone Number [facility] [address] [place] [address], [place] * Magnesium (06/08/2025 7:52 AM EDT) Magnesium, Blood 2.2 1.6 - 2.6 mg/dL 06/08/2025 8:57 AM EDT [facility] Blood PERIPHERAL BLOOD SPECIMEN / Unknown Venipuncture / Unknown 06/08/2025 7:52 AM EDT 06/08/2025 7:58 AM EDT Urban Mondragon MD LAB BLOOD ORDERABLES Final Resul t Performing Organization Address City/[facility]/ZIP Co de Phone Number [facility] [address] [place] [address], [place] * (ABNORMAL) Basic Metabolic Panel (06/08/2025 7:52 AM EDT) Sodium 143 135 - 147 mmol/L 06/08/2025 8:57 AM EDT [facility] Potassium 4.3 3.5 - 5.4 mmol/L 06/08/2025 8:57 AM EDT [facility] Chloride 106 96 - 108 mmol/L 06/08/2025 8:57 AM EDT [facility] Total CO2/Bicarbonat e 28 22 - 32 mmol/L 06/08/2025 8:57 AM EDT [facility] Anion Gap 9(L) 10 - 18 mmol/L 06/08/2025 8:57 AM EDT [facility] BUN 31(H) 6 - 20 mg/dL 06/08/2025 8:57 AM EDT [facility] Creatinine, Blood 0.80 0.50 - 1.20 mg/dL 06/08/2025 8:57 AM EDT [facility] Glucose, Blood 130(H) 70 - 100 mg/dL 06/08/2025 8:57 AM EDT [facility] Calcium 8.7 8.4 - 10.3 mg/dL 06/08/2025 8:57 AM EDT [facility] Estimated GFR(CKD-EPI) 96 mL/min/BSA 06/08/2025 8:57 AM T [facility] Blood PERIPHERAL BLOOD SPECIMEN / Unknown Venipuncture / Unknown 06/08/2025 7:52 AM EDT 06/08/2025 7:58 AM EDT us Urban Mondragon MD LAB BLOOD ORDERABLES Final Resul t [facility] [address] [place] [address], * (ABNORMAL) Hepatic Function Panel (06/08/2025 7:52 AM EDT) Total Protein 6.0(L) 6.4 - 8.3 g/dL 06/08/2025 8:57 AM EDT [facility] Albumin, Blood 2.8(L) 3.5 - 5.2 g/dL 06/08/2025 8:57 AM EDT [facility] Globulin Result 3.2 2.0 - 4.0 g/dL 06/08/2025 8:57 AM EDT [facility] Total Bilirubin 0.2 0.0 - 1.5 mg/dL 06/08/2025 8:57 AM EDT [facility] Direct Bilirubin 0.1 0.0 - 0.3 mg/dL 06/08/2025 8:57 AM EDT [facility] Alkaline Phosphatase 124 40 - 130 U/L 06/08/2025 8:57 AM EDT [facility] AST (SGOT) 20 0 - 40 U/L 06/08/2025 8:57 AM EDT [facility] ALT (SGPT) 14 0 - 40 U/L 06/08/2025 8:57 AM EDT [facility] Blood PERIPHERAL BLOOD SPECIMEN / Unknown Venipuncture / Unknown 06/08/2025 7:52 AM EDT 06/08/2025 7:58 AM EDT us Urban Mondragon MD LAB BLOOD ORDERABLES Final Resul t [facility] [address] [place] [address], * (ABNORMAL) CBC (06/08/2025 7:52 AM EDT) WBC 14.29(H) 4.00 - 10.00 K/uL 06/08/2025 8:04 AM EDT [facility] RBC 4.24(L) 4.60 - 6.10 M/uL 06/08/2025 8:04 AM EDT [facility] Hemoglobin 12.8(L) 13.7 - 17.5 g/dL 06/08/2025 8:04 AM EDT [facility] Hematocrit 40.2 40.0 - 51.0 % 06/08/2025 8:04 AM EDT [facility] MCV 95 82 - 98 fL 06/08/2025 8:04 AM EDT [facility] MCH 30.2 26.0 - 32.0 pg 06/08/2025 8:04 AM EDT [facility] MCHC 31.8(L) 32.0 - 37.0 g/dL 06/08/2025 8:04 AM EDT [facility] RDW 13.2 10.5 - 15.5 % 06/08/2025 8:04 AM EDT [facility] RDW-SD 45.3 35.1 - 46.3 fL 06/08/2025 8:04 AM EDT [facility] Platelet Count 295 150 - 400 K/uL 06/08/2025 8:04 AM EDT [facility] Nucleated RBC 0 <=0 #/100 WBC 06/08/2025 8:04 AM EDT [facility] Blood PERIPHERAL BLOOD SPECIMEN / Unknown Venipuncture / Unknown 06/08/2025 7:52 AM EDT 06/08/2025 7:59 AM EDT us Urban Mondragon MD LAB BLOOD ORDERABLES Final Resul t Performing Organization Address City/[facility] Co de Phone Number [facility] [address] [place] [address], [place] * (ABNORMAL) POCT Glucose (06/08/2025 6:00 AM EDT) Glucose, POC 137(H) 70 - 100 mg/dL 06/08/2025 6:02 AM EDT [facility] Comment: @Serial Bcmvpc=[id number] @Appointment Scheduler [id number] Blood 06/08/2025 6:00 AM EDT 06/08/2025 6:02 AM EDT Mariano Maloney MD POCT ORDERABLES - DEVICE Final R esult Performing Organization Address City/[facility]/ZIP Co de Phone Number [facility] [address] [facility] [place] [address], [place] * (ABNORMAL) POCT Glucose (06/07/2025 6:35 PM EDT) Glucose, POC 102(H) 70 - 100 mg/dL 06/07/2025 6:39 PM EDT [facility] Comment: @Serial Cstmyq=[id number] @Appointment Scheduler GP=[id number] Blood 06/07/2025 6:35 PM EDT 06/07/2025 6:39 PM EDT us Mariano Maloney MD POCT ORDERABLES - DEVICE Final R esult Performing Organization Address [facility] Phone Number [facility] [address] [place] [address], [place] * (ABNORMAL) POCT Glucose (06/07/2025 11:57 AM EDT) Glucose, POC 111(H) 70 - 100 mg/dL 06/07/2025 11:58 AM EDT [facility] Comment: @Serial Txvxnr=[id number] @Appointment Scheduler RQ=[id number] Blood 06/07/2025 11:5 7 AM EDT 06/07/2025 11:58 AM EDT us Mariano Maloney MD POCT ORDERABLES - DEVICE Final R esult Performing Organization Address [facility] [place] [address], [place] * (ABNORMAL) POCT Glucose (06/07/2025 5:59 AM EDT) Glucose, POC 129(H) 70 - 100 mg/dL 06/07/2025 6:01 AM EDT [facility] Comment: @Serial Ejukxd=[id number] @Appointment Scheduler YI=[id number] Blood 06/07/2025 5:59 AM EDT 06/07/2025 6:01 AM EDT us Mariano Maloney MD POCT ORDERABLES - DEVICE Final R esult Performing Organization Address [facility] de Phone Number [address] [place] [address], [place] * (ABNORMAL) POCT Glucose (06/06/2025 11:54 PM EDT) Glucose, POC 116(H) 70 - 100 mg/dL 06/06/2025 11:56 PM EDT [facility] Comment: @Serial Uhwnst=[id number] @Appointment Scheduler [phone]=[id number] Blood 06/06/2025 11:5 4 PM EDT 06/06/2025 11:56 PM EDT us Mariano Maloney MD POCT ORDERABLES - DEVICE Final R esult Performing Organization Address [facility] de Phone Number [facility] [address] [place] [address], [place] * (ABNORMAL) POCT Glucose (06/06/2025 5:43 PM EDT) Glucose, POC 115(H) 70 - 100 mg/dL 06/06/2025 5:49 PM EDT [facility] Comment: @Serial Mjwdlo=[id number] @Appointment Scheduler QL=[id number] Blood 06/06/2025 5:43 PM EDT 06/06/2025 5:49 PM EDT us Mariano Maloney MD POCT ORDERABLES - DEVICE Final R esult Performing Organization Address [facility] de Phone Number [facility] [address] [place] [address], [place] * (ABNORMAL) POCT Glucose (06/06/2025 2:14 PM EDT) Glucose, POC 110(H) 70 - 100 mg/dL 06/06/2025 2:22 PM EDT [facility] Comment: @Serial Rboqsv=[id number] @Appointment Scheduler [phone]=[id number] Blood 06/06/2025 2:14 PM EDT 06/06/2025 2:22 PM EDT us Mariano Maloney MD POCT ORDERABLES - DEVICE Final R esult Performing Organization Address City/[facility] Co de Phone Number [facility] [address] [place] [address], [place] * (ABNORMAL) POCT Glucose (06/06/2025 6:41 AM EDT) Glucose, POC 133(H) 70 - 100 mg/dL 06/06/2025 6:43 AM EDT [facility] Comment: @Serial Bwgjlq=[id number] @Appointment Scheduler [phone]=[id number] Blood 06/06/2025 6:41 AM EDT 06/06/2025 6:43 AM EDT us Urban Mondragon MD POCT ORDERABLES - DEVICE Final R esult Performing Organization Address [facility] [place] [address], [place] * (ABNORMAL) POCT Glucose (06/05/2025 5:36 PM EDT) Glucose, POC 127(H) 70 - 100 mg/dL 06/05/2025 5:37 PM EDT [facility] Comment: @Serial Swkvjg=[id number] @Appointment Scheduler RL=[id number] Blood 06/05/2025 5:36 PM EDT 06/05/2025 5:37 PM EDT us Urban Mondragon MD POCT ORDERABLES - DEVICE Final R esult Performing Organization Address [facility] [place] [address], [place] * (ABNORMAL) POCT Glucose (06/05/2025 6:13 AM EDT) Glucose, POC 148(H) 70 - 100 mg/dL 06/05/2025 6:14 AM EDT [facility] Comment: @Serial Yosshs=[id number] @Appointment Scheduler GE=[id number] Blood 06/05/2025 6:13 AM EDT 06/05/2025 6:14 AM EDT us Urban Mondragon MD POCT ORDERABLES - DEVICE Final R esult Performing Organization Address [facility] de Phone Number [address] [place] [address], [place] * Phosphorus (06/05/2025 5:53 AM EDT) [facility] Phosphorus 3.3 2.7 - 4.5 mg/dL 06/05/2025 7:29 AM EDT [facility] Blood PERIPHERAL BLOOD SPECIMEN / Unknown Venipuncture / Unknown 06/05/2025 5:53 AM EDT 06/05/2025 6:37 AM EDT us Rabia Velasco MD LAB BLOOD ORDERABLES Final Resul t Performing Organization Address City/[facility]/ZIP Co de Phone Number [facility] [address] [place] [address], * Magnesium (06/05/2025 5:53 AM EDT) [facility] Magnesium, Blood 2.2 1.6 - 2.6 mg/dL 06/05/2025 7:29 AM EDT [facility] Blood PERIPHERAL BLOOD SPECIMEN / Unknown Venipuncture / Unknown 06/05/2025 5:53 AM EDT 06/05/2025 6:37 AM EDT us Rabia Velasco MD LAB BLOOD ORDERABLES Final Resul t Performing Organization Address City/[facility]/ZIP Co de Phone Number [facility] [address] [place] [address], * (ABNORMAL) Basic Metabolic Panel (06/05/2025 5:53 AM EDT) [facility] Sodium 142 135 - 147 mmol/L 06/05/2025 7:29 AM EDT [facility] Potassium 4.0 3.5 - 5.4 mmol/L 06/05/2025 7:29 AM EDT [facility] Chloride 105 96 - 108 mmol/L 06/05/2025 7:29 AM EDT [facility] Total CO2/Bicarbonat e 29 22 - 32 mmol/L 06/05/2025 7:29 AM EDT [facility] Anion Gap 8(L) 10 - 18 mmol/L 06/05/2025 7:29 AM EDT [facility] BUN 34(H) 6 - 20 mg/dL 06/05/2025 7:29 AM EDT [facility] Creatinine, Blood 0.90 0.50 - 1.20 mg/dL 06/05/2025 7:29 AM EDT [facility] Glucose, Blood 141(H) 70 - 100 mg/dL 06/05/2025 7:29 AM EDT [facility] Calcium 8.7 8.4 - 10.3 mg/dL 06/05/2025 7:29 AM EDT [facility] Blood PERIPHERAL BLOOD SPECIMEN / Unknown Venipuncture / Unknown 06/05/2025 5:53 AM EDT 06/05/2025 6:37 AM EDT us Rabia Velasco MD LAB BLOOD ORDERABLES Final Resul t [facility] [address] [place] [address], * (ABNORMAL) CBC (06/05/2025 5:53 AM EDT) WBC 12.02(H) 4.00 - 10.00 K/uL 06/05/2025 7:06 AM EDT [facility] RBC 4.05(L) 4.60 - 6.10 M/uL 06/05/2025 7:06 AM EDT [facility] Hemoglobin 12.3(L) 13.7 - 17.5 g/dL 06/05/2025 7:06 AM EDT [facility] Hematocrit 38.7(L) 40.0 - 51.0 % 06/05/2025 7:06 AM EDT [facility] MCV 96 82 - 98 fL 06/05/2025 7:06 AM EDT [facility] MCH 30.4 26.0 - 32.0 pg 06/05/2025 7:06 AM EDT [facility] MCHC 31.8(L) 32.0 - 37.0 g/dL 06/05/2025 7:06 AM EDT [facility] RDW 13.2 10.5 - 15.5 % 06/05/2025 7:06 AM EDT [facility] RDW-SD 46.1 35.1 - 46.3 fL 06/05/2025 7:06 AM EDT [facility] Platelet Count 216 150 - 400 K/uL 06/05/2025 7:06 AM EDT [facility] Nucleated RBC 0 <=0 #/100 WBC 06/05/2025 7:06 AM EDT [facility] Blood PERIPHERAL BLOOD SPECIMEN / Unknown Venipuncture / Unknown 06/05/2025 5:53 AM EDT 06/05/2025 6:36 AM EDT us Urban Mondragon MD LAB BLOOD ORDERABLES Final Resul t [facility] [address] [place] [address], [place] * (ABNORMAL) Hepatic Function Panel (06/05/2025 5:53 AM EDT) Total Protein 5.8(L) 6.4 - 8.3 g/dL 06/05/2025 7:34 AM EDT [facility] Albumin, Blood 2.6(L) 3.5 - 5.2 g/dL 06/05/2025 7:34 AM EDT [facility] Globulin Result 3.2 2.0 - 4.0 g/dL 06/05/2025 7:34 AM EDT [facility] Total Bilirubin 0.2 0.0 - 1.5 mg/dL 06/05/2025 7:34 AM EDT [facility] Direct Bilirubin <0.1 0.0 - 0.3 mg/dL 06/05/2025 7:34 AM EDT [facility] Alkaline Phosphatase 129 40 - 130 U/L 06/05/2025 7:34 AM EDT [facility] AST (SGOT) 19 0 - 40 U/L 06/05/2025 7:34 AM EDT [facility] ALT (SGPT) 8 0 - 40 U/L 06/05/2025 7:34 AM EDT [facility] Blood PERIPHERAL BLOOD SPECIMEN / Unknown Venipuncture / Unknown 06/05/2025 5:53 AM EDT 06/05/2025 6:37 AM EDT Rabia Velasco MD LAB BLOOD ORDERABLES Final Resul t Performing Organization Address [facility] Co de Phone Number [facility] [address] [place] [address], [place] * (ABNORMAL) POCT Glucose (06/05/2025 12:41 AM EDT) Glucose, POC 136(H) 70 - 100 mg/dL 06/05/2025 12:43 AM EDT [facility] Comment: @Serial Ydrxqx=[id number] @Appointment Scheduler [phone]=[id number] Blood 06/05/2025 12:4 1 AM EDT 06/05/2025 12:43 AM EDT us Urban Mondragon MD POCT ORDERABLES - DEVICE Final R esult Performing Organization Address [facility] de Phone Number [facility] [address] [place] [address], [place] * (ABNORMAL) POCT Glucose (06/04/2025 6:40 PM EDT) Glucose, POC 110(H) 70 - 100 mg/dL 06/04/2025 6:41 PM EDT [facility] Comment: @Serial Ytojim=[id number] @Appointment Scheduler MH=[id number] Blood 06/04/2025 6:40 PM EDT 06/04/2025 6:41 PM EDT us Urban Mondragon MD POCT ORDERABLES - DEVICE Final R esult Performing Organization Address [facility] Co de Phone Number [facility] [address] [place] [address], [place] * (ABNORMAL) POCT Glucose (06/04/2025 12:07 PM EDT) Glucose, POC 119(H) 70 - 100 mg/dL 06/04/2025 12:09 PM EDT [facility] Comment: @Serial Xrkwys=[id number] @Appointment Scheduler QV=[id number] Blood 06/04/2025 12:0 7 PM EDT 06/04/2025 12:09 PM EDT Urban Mondragon MD POCT ORDERABLES - DEVICE Final R esult Performing Organization Address City/[facility]/ZIP Co de Phone Number [facility] [address] [place] [address], [place] * Phosphorus (06/04/2025 6:25 AM EDT) Phosphorus 2.8 2.7 - 4.5 mg/dL 06/04/2025 8:06 AM EDT [facility] Blood PERIPHERAL BLOOD SPECIMEN / Unknown Venipuncture / Unknown 06/04/2025 6:25 AM EDT 06/04/2025 7:15 AM EDT Rabia Velasco MD LAB BLOOD ORDERABLES Final Resul t Performing Organization Address City/[facility]/ZIP Co de Phone Number [facility] [address] [place] [address], [place] * Magnesium (06/04/2025 6:25 AM EDT) Magnesium, Blood 2.1 1.6 - 2.6 mg/dL 06/04/2025 8:06 AM EDT [facility] Blood PERIPHERAL BLOOD SPECIMEN / Unknown Venipuncture / Unknown 06/04/2025 6:25 AM EDT 06/04/2025 7:15 AM EDT Rabia Velasco MD LAB BLOOD ORDERABLES Final Resul t Performing Organization Address City/[facility]/ZIP Co de Phone Number [facility] [address] [place] [address], * (ABNORMAL) Basic Metabolic Panel (06/04/2025 6:25 AM EDT) Sodium 142 135 - 147 mmol/L 06/04/2025 8:06 AM EDT [facility] Potassium 4.2 3.5 - 5.4 mmol/L 06/04/2025 8:06 AM EDT [facility] Chloride 105 96 - 108 mmol/L 06/04/2025 8:06 AM EDT [facility] Total CO2/Bicarbonat e 29 22 - 32 mmol/L 06/04/2025 8:06 AM EDT [facility] Anion Gap 8(L) 10 - 18 mmol/L 06/04/2025 8:06 AM EDT [facility] BUN 37(H) 6 - 20 mg/dL 06/04/2025 8:06 AM EDT [facility] Creatinine, Blood 0.90 0.50 - 1.20 mg/dL 06/04/2025 8:06 AM EDT [facility] Glucose, Blood 115(H) 70 - 100 mg/dL 06/04/2025 8:06 AM EDT [facility] Calcium 9.1 8.4 - 10.3 mg/dL 06/04/2025 8:06 AM EDT [facility] Blood PERIPHERAL BLOOD SPECIMEN / Unknown Venipuncture / Unknown 06/04/2025 6:25 AM EDT 06/04/2025 7:15 AM EDT us Rabia Velasco MD LAB BLOOD ORDERABLES Final Resul t [facility] [address] [place] [address], * (ABNORMAL) CBC (06/04/2025 6:25 AM EDT) WBC 12.09(H) 4.00 - 10.00 K/uL 06/04/2025 8:01 AM EDT [facility] RBC 4.04(L) 4.60 - 6.10 M/uL 06/04/2025 8:01 AM EDT [facility] Hemoglobin 12.1(L) 13.7 - 17.5 g/dL 06/04/2025 8:01 AM EDT [facility] Hematocrit 38.2(L) 40.0 - 51.0 % 06/04/2025 8:01 AM EDT [facility] MCV 95 82 - 98 fL 06/04/2025 8:01 AM EDT [facility] MCH 30.0 26.0 - 32.0 pg 06/04/2025 8:01 AM EDT [facility] MCHC 31.7(L) 32.0 - 37.0 g/dL 06/04/2025 8:01 AM EDT [facility] RDW 13.2 10.5 - 15.5 % 06/04/2025 8:01 AM EDT [facility] RDW-SD 46.0 35.1 - 46.3 fL 06/04/2025 8:01 AM EDT [facility] Platelet Count 218 150 - 400 K/uL 06/04/2025 8:01 AM EDT [facility] Nucleated RBC 0 <=0 #/100 WBC 06/04/2025 8:01 AM EDT [facility] Blood PERIPHERAL BLOOD SPECIMEN / Unknown Venipuncture / Unknown 06/04/2025 6:25 AM EDT 06/04/2025 7:17 AM EDT us Urban Mondragon MD LAB BLOOD ORDERABLES Final Resul t [facility] [address] [place] [address], * (ABNORMAL) Hepatic Function Panel (06/04/2025 6:25 AM EDT) Total Protein 5.7(L) 6.4 - 8.3 g/dL 06/04/2025 8:06 AM EDT [facility] Albumin, Blood 2.5(L) 3.5 - 5.2 g/dL 06/04/2025 8:06 AM EDT [facility] Globulin Result 3.2 2.0 - 4.0 g/dL 06/04/2025 8:06 AM EDT [facility] Total Bilirubin 0.2 0.0 - 1.5 mg/dL 06/04/2025 8:06 AM EDT [facility] Direct Bilirubin 0.1 0.0 - 0.3 mg/dL 06/04/2025 8:06 AM EDT [facility] Alkaline Phosphatase 133(H) 40 - 130 U/L 06/04/2025 8:06 AM EDT [facility] AST (SGOT) 19 0 - 40 U/L 06/04/2025 8:06 AM EDT [facility] ALT (SGPT) 8 0 - 40 U/L 06/04/2025 8:06 AM EDT [facility] Blood PERIPHERAL BLOOD SPECIMEN / Unknown Venipuncture / Unknown 06/04/2025 6:25 AM EDT 06/04/2025 7:15 AM EDT us Rabia Velasco MD LAB BLOOD ORDERABLES Final Resul t [facility] [address] [place] [address], [place] * (ABNORMAL) POCT Glucose (06/04/2025 5:17 AM EDT) Glucose, POC 156(H) 70 - 100 mg/dL 06/04/2025 5:21 AM EDT [facility] Comment: @Serial Vogewm=[id number] @Appointment Scheduler HA=[id number] Blood 06/04/2025 5:17 AM EDT 06/04/2025 5:21 AM EDT us Urban Mondragon MD POCT ORDERABLES - DEVICE Final R esult Performing Organization Address City/[facility]/ZIP Co de Phone Number [facility] [address] [place] [address], [place] * ECG 12 lead (06/04/2025 5:14 AM EDT) Ventricular Heart Rate 111 BPM EKG BUR MUSE Atrial Heart Rate 111 BPM EKG BUR MUSE [place] Interval 132 ms EKG [facility] MUSE QRSD Interval 94 ms EKG B[facility] MUSE QT Interval 370 ms EKG [facility] MUSE QTC Interval 503 ms EKG B[facility] MUSE P [place] 64 degrees EKG BUR MUSE R [place] -33 degrees EKG BUR MUSE T Wave [place] 47 degrees EKG BUR MUSE 06/04/2025 5:14 AM EDT 06/04/2025 12:25 PM EDT Narrative EKG KATH MUSE - 06/04/2025 12:25 PM EDT Sinus [...] Urban Mondragon MD ECG ORDERABLES Final Result Performing Organization Address [facility]/ZIP Co de Phone Number EKG KATH MUSE [address] [place] [address] * (ABNORMAL) POCT Glucose (06/04/2025 1:04 AM EDT) Glucose, POC 141(H) 70 - 100 mg/dL 06/04/2025 1:08 AM EDT [facility] Comment: @Serial Jcdfas=[id number] @Appointment Scheduler GM=[id number] Blood 06/04/2025 1:04 AM EDT 06/04/2025 1:08 AM EDT us Urban Mondragon MD POCT ORDERABLES - DEVICE Final R esult [facility] [address] [place] [address], * (ABNORMAL) POCT Glucose (06/03/2025 6:31 PM EDT) Glucose, POC 104(H) 70 - 100 mg/dL 06/03/2025 6:32 PM EDT [facility] Comment: @Serial Fbuvmb=[id number] @Appointment Scheduler [phone]=[id number] Blood 06/03/2025 6:31 PM EDT 06/03/2025 6:32 PM EDT Urban Mondragon MD POCT ORDERABLES - DEVICE Final R esult [facility] [address] [facility] [place] [address], [place] * (ABNORMAL) POCT Glucose (06/03/2025 11:49 AM EDT) Glucose, POC 182(H) 70 - 100 mg/dL 06/03/2025 11:55 AM EDT [facility] Comment: @Serial Zmeawb=[id number] @Appointment Scheduler NX=[id number] Blood 06/03/2025 11:4 9 AM EDT 06/03/2025 11:55 AM EDT Urban Mondragon MD POCT ORDERABLES - DEVICE Final R esult [facility] [address] [facility] [place] [address], [place] * Phosphorus (06/03/2025 6:08 AM EDT) Phosphorus 2.9 2.7 - 4.5 mg/dL 06/03/2025 7:19 AM EDT [facility] Blood PERIPHERAL BLOOD SPECIMEN / Unknown Venipuncture / Unknown 06/03/2025 6:08 AM EDT 06/03/2025 6:40 AM EDT Rabia Velasco MD LAB BLOOD ORDERABLES Final Resul t [facility] [address] [place] [address], [place] * Magnesium (06/03/2025 6:08 AM EDT) Magnesium, Blood 2.2 1.6 - 2.6 mg/dL 06/03/2025 7:19 AM EDT [facility] Blood PERIPHERAL BLOOD SPECIMEN / Unknown Venipuncture / Unknown 06/03/2025 6:08 AM EDT 06/03/2025 6:40 AM EDT Rabia Velasco MD LAB BLOOD ORDERABLES Final Resul t [facility] [address] [place] [address], [place] * (ABNORMAL) Basic Metabolic Panel (06/03/2025 6:08 AM EDT) Sodium 145 135 - 147 mmol/L 06/03/2025 7:19 AM EDT [facility] Potassium 4.7 3.5 - 5.4 mmol/L 06/03/2025 7:19 AM EDT [facility] Chloride 108 96 - 108 mmol/L 06/03/2025 7:19 AM EDT [facility] Total CO2/Bicarbonat e 29 22 - 32 mmol/L 06/03/2025 7:19 AM EDT [facility] Anion Gap 8(L) 10 - 18 mmol/L 06/03/2025 7:19 AM EDT [facility] BUN 39(H) 6 - 20 mg/dL 06/03/2025 7:19 AM EDT [facility] Creatinine, Blood 0.90 0.50 - 1.20 mg/dL 06/03/2025 7:19 AM EDT [facility] Glucose, Blood 142(H) 70 - 100 mg/dL 06/03/2025 7:19 AM EDT [facility] Calcium 8.9 8.4 - 10.3 mg/dL 06/03/2025 7:19 AM EDT [facility] Blood PERIPHERAL BLOOD SPECIMEN / Unknown Venipuncture / Unknown 06/03/2025 6:08 AM EDT 06/03/2025 6:40 AM EDT Rabia Velasco MD LAB BLOOD ORDERABLES Final Resul t Performing Organization Address City/[facility]/ZIP Co de Phone Number [facility] [address] [place] [address], [place] * (ABNORMAL) CBC (06/03/2025 6:08 AM EDT) WBC 15.35(H) 4.00 - 10.00 K/uL 06/03/2025 6:48 AM EDT [facility] RBC 4.16(L) 4.60 - 6.10 M/uL 06/03/2025 6:48 AM EDT [facility] Hemoglobin 12.5(L) 13.7 - 17.5 g/dL 06/03/2025 6:48 AM EDT [facility] Hematocrit 40.3 40.0 - 51.0 % 06/03/2025 6:48 AM EDT [facility] MCV 97 82 - 98 fL 06/03/2025 6:48 AM EDT [facility] MCH 30.0 26.0 - 32.0 pg 06/03/2025 6:48 AM EDT [facility] MCHC 31.0(L) 32.0 - 37.0 g/dL 06/03/2025 6:48 AM EDT [facility] RDW 13.3 10.5 - 15.5 % 06/03/2025 6:48 AM EDT [facility] RDW-SD 47.8(H) 35.1 - 46.3 fL 06/03/2025 6:48 AM EDT [facility] Platelet Count 243 150 - 400 K/uL 06/03/2025 6:48 AM EDT [facility] Nucleated RBC 0 <=0 #/100 WBC 06/03/2025 6:48 AM EDT [facility] Blood PERIPHERAL BLOOD SPECIMEN / Unknown Venipuncture / Unknown 06/03/2025 6:08 AM EDT 06/03/2025 6:39 AM EDT us Urban Mondragon MD LAB BLOOD ORDERABLES Final Resul t [facility] [address] [place] [address], * (ABNORMAL) Hepatic Function Panel (06/03/2025 6:08 AM EDT) Total Protein 5.7(L) 6.4 - 8.3 g/dL 06/03/2025 7:19 AM EDT [facility] Albumin, Blood 2.4(L) 3.5 - 5.2 g/dL 06/03/2025 7:19 AM EDT [facility] Globulin Result 3.3 2.0 - 4.0 g/dL 06/03/2025 7:19 AM EDT [facility] Total Bilirubin 0.2 0.0 - 1.5 mg/dL 06/03/2025 7:19 AM EDT [facility] Direct Bilirubin 0.1 0.0 - 0.3 mg/dL 06/03/2025 7:19 AM EDT [facility] Alkaline Phosphatase 134(H) 40 - 130 U/L 06/03/2025 7:19 AM EDT [facility] AST (SGOT) 20 0 - 40 U/L 06/03/2025 7:19 AM EDT [facility] ALT (SGPT) 7 0 - 40 U/L 06/03/2025 7:19 AM EDT [facility] Blood PERIPHERAL BLOOD SPECIMEN / Unknown Venipuncture / Unknown 06/03/2025 6:08 AM EDT 06/03/2025 6:40 AM EDT Rabia Velasco MD LAB BLOOD ORDERABLES Final Resul t [facility] [address] [place] [address], * Clozapine Level, Blood (06/03/2025 6:08 AM EDT) Norclozapine 111 25 - 400 mcg/L 06/06/2025 5:00 PM EDT [employer] [facility] Clozapine 324 mcg/L 06/06/2025 5:00 PM EDT [facility] Comment: The therapeutic response begins to appear at 100 mcg/L. Refractory schizophrenia appears to require a therapeutic concentration of at least 350 mcg/L (trough, at steady state). Toxic range: Greater than 900 mcg/L This test was developed and its analytical performance characteristics have been determined by [employer] [place], [place]. It has not been cleared or approved by the U.S. Food and Drug Administration. This assay has been validated pursuant to the CLIA regulations and is used for clinical purposes. Blood PERIPHERAL BLOOD SPECIMEN / Unknown Venipuncture / Unknown 06/03/2025 6:08 AM EDT 06/03/2025 6:39 AM EDT Narrative [facility] - 06/06/2025 5:00 PM EDT Performing Organization Information: Site ID: AMD Name: [employer] Address: [address] [place] [address] Director: LEONEL RUIZ MD,PHD us Urban Mondragon MD LAB BLOOD ORDERABLES Final Resul t Performing Organization Address City/[facility] Co de Phone Number [facility] [address] [place] [address], * (ABNORMAL) POCT Glucose (06/03/2025 5:50 AM EDT) Glucose, POC 160(H) 70 - 100 mg/dL 06/03/2025 5:54 AM EDT [facility] Comment: @Serial Kayxej=[id number] @Appointment Scheduler [id number] Blood 06/03/2025 5:50 AM EDT 06/03/2025 5:54 AM EDT Urban Mondragon MD POCT ORDERABLES - DEVICE Final R esult Performing Organization Address City/[facility] Co de Phone Number [facility] [address] [place] [address], * (ABNORMAL) POCT Glucose (06/02/2025 11:44 PM EDT) Glucose, POC 141(H) 70 - 100 mg/dL 06/02/2025 11:56 PM EDT [facility] Comment: @Serial Gtnjwg=[id number] @Appointment Scheduler [id number] Blood 06/02/2025 11:4 4 PM EDT 06/02/2025 11:55 PM EDT us Urban Mondragon MD POCT ORDERABLES - DEVICE Final R esult Performing Organization Address [facility] de Phone Number [facility] [address] [place] [address], [place] * (ABNORMAL) POCT Glucose (06/02/2025 5:24 PM EDT) Glucose, POC 111(H) 70 - 100 mg/dL 06/02/2025 5:30 PM EDT [facility] Comment: @Serial Zclybj=[id number] @Appointment Scheduler [id number] Blood 06/02/2025 5:24 PM EDT 06/02/2025 5:30 PM EDT us Urban Mondragon MD POCT ORDERABLES - DEVICE Final R esult Performing Organization Address [facility] [place] [address], [place] * (ABNORMAL) POCT Glucose (06/02/2025 12:13 PM EDT) Glucose, POC 152(H) 70 - 100 mg/dL 06/02/2025 12:14 PM EDT [facility] Comment: @Serial Lvvjln=[id number] @Appointment Scheduler KU=[id number] Blood 06/02/2025 12:1 3 PM EDT 06/02/2025 12:14 PM EDT us Urban Mondragon MD POCT ORDERABLES - DEVICE Final R esult Performing Organization Address [facility] Co de Phone Number [address] [place] [address], [place] * (ABNORMAL) POCT Glucose (06/02/2025 5:59 AM EDT) Glucose, POC 164(H) 70 - 100 mg/dL 06/02/2025 6:03 AM EDT [facility] Comment: @Serial Ywdbyz=[id number] @Appointment Scheduler IW=[id number] Blood 06/02/2025 5:59 AM EDT 06/02/2025 6:03 AM EDT us Urban Mondragon MD POCT ORDERABLES - DEVICE Final R esult [facility] [address] [place] [id number], * (ABNORMAL) Manual Diff and Morph (06/02/2025 5:41 AM EDT) Neutrophil 73(H) 34 - 71 % 06/02/2025 8:02 AM EDT [facility] Lymphocyte 12(L) 19 - 53 % 06/02/2025 8:02 AM EDT [facility] Monocyte 7 5 - 13 % 06/02/2025 8:02 AM EDT [facility] Eosinophil 0(L) 1 - 7 % 06/02/2025 8:02 AM EDT [facility] Basophil 0 0 - 1 % 06/02/2025 8:02 AM EDT [facility] Band 4 0 - 5 % 06/02/2025 8:02 AM EDT [facility] Metamyelocyte 2(H) <=0 % 06/02/2025 8:02 AM EDT [facility] Myelocyte 2(H) <=0 % 06/02/2025 8:02 AM EDT [facility] Absolute Neutrophil Count 15.65(H) 1.60 - 6.10 K/uL 06/02/2025 8:02 AM EDT [facility] Absolute Lymphocyte Count 2.44 1.20 - 3.70 K/uL 06/02/2025 8:02 AM EDT [facility] Absolute Monocyte Count 1.42(H) 0.20 - 0.80 K/uL 06/02/2025 8:02 AM EDT [facility] Absolute Eosinophil Count 0.00(L) 0.04 - 0.54 K/uL 06/02/2025 8:02 AM EDT [facility] Absolute Basophil Count 0.00(L) 0.01 - 0.08 K/uL 06/02/2025 8:02 AM EDT [facility] Platelet Est Normal Normal 06/02/2025 8:02 AM EDT [facility] ANISOCYTOSIS 1+ 06/02/2025 8:02 AM EDT [facility] Microcytosis 1+ 06/02/2025 8:02 AM EDT [facility] Poikilocytosis 1+ 06/02/2025 8:02 AM EDT [facility] ACANTHOCYTES 1+ 06/02/2025 8:02 AM EDT [facility] OVALOCYTES 1+ 06/02/2025 8:02 AM EDT [facility] SCHISTOCYTES 1+ 06/02/2025 8:02 AM EDT [facility] SPHEROCYTES 1+ 06/02/2025 8:02 AM EDT [facility] TEAR DROP CELLS 1+ 8:02 AM EDT [facility] Total Cells Counted 100 06/02/2025 8:02 AM EDT [facility] Blood PERIPHERAL BLOOD SPECIMEN / Unknown Venipuncture / Unknown 06/02/2025 5:41 AM EDT 06/02/2025 5:45 AM EDT us Rabia Velasco MD LAB BLOOD ORDERABLES Final Resul t [facility] [address] [place] [address], [place] * Phosphorus (06/02/2025 5:41 AM EDT) Phosphorus 3.4 2.7 - 4.5 mg/dL 06/02/2025 6:25 AM EDT [facility] Blood PERIPHERAL BLOOD SPECIMEN / Unknown Venipuncture / Unknown 06/02/2025 5:41 AM EDT 06/02/2025 5:45 AM EDT us Rabia Velasco MD LAB BLOOD ORDERABLES Final Resul t [facility] [address] [place] [address], [place] * Magnesium (06/02/2025 5:41 AM EDT) Magnesium, Blood 2.4 1.6 - 2.6 mg/dL 06/02/2025 6:25 AM EDT [facility] Blood PERIPHERAL BLOOD SPECIMEN / Unknown Venipuncture / Unknown 06/02/2025 5:41 AM EDT 06/02/2025 5:45 AM EDT us Rabia Velasco MD LAB BLOOD ORDERABLES Final Resul t [facility] [address] [place] [address], [place] * (ABNORMAL) Basic Metabolic Panel (06/02/2025 5:41 AM EDT) Pathologist [facility] Sodium 144 135 - 147 mmol/L 06/02/2025 6:25 AM EDT [facility] Potassium 4.2 3.5 - 5.4 mmol/L 06/02/2025 6:25 AM EDT [facility] Chloride 106 96 - 108 mmol/L 06/02/2025 6:25 AM EDT [facility] Total CO2/Bicarbonat e 30 22 - 32 mmol/L 06/02/2025 6:25 AM EDT [facility] Anion Gap 8(L) 10 - 18 mmol/L 06/02/2025 6:25 AM EDT [facility] BUN 38(H) 6 - 20 mg/dL 06/02/2025 6:25 AM EDT [facility] Creatinine, Blood 0.80 0.50 - 1.20 mg/dL 06/02/2025 6:25 AM EDT [facility] Glucose, Blood 159(H) 70 - 100 mg/dL 06/02/2025 6:25 AM EDT [facility] Calcium 9.1 8.4 - 10.3 mg/dL 06/02/2025 6:25 AM EDT [facility] Blood PERIPHERAL BLOOD SPECIMEN / Unknown Venipuncture / Unknown 06/02/2025 5:41 AM EDT 06/02/2025 5:45 AM EDT us Rabia Velasco MD LAB BLOOD ORDERABLES Final Resul t [facility] [address] [place] [address], [place] * (ABNORMAL) CBC and Differential (06/02/2025 5:41 AM EDT) WBC 20.32(H) 4.00 - 10.00 K/uL 06/02/2025 8:02 AM EDT [facility] RBC 4.37(L) 4.60 - 6.10 M/uL 06/02/2025 8:02 AM EDT [facility] Hemoglobin 13.1(L) 13.7 - 17.5 g/dL 06/02/2025 8:02 AM EDT [facility] Hematocrit 42.1 40.0 - 51.0 % 06/02/2025 8:02 AM EDT [facility] MCV 96 82 - 98 fL 06/02/2025 8:02 AM EDT [facility] MCH 30.0 26.0 - 32.0 pg 06/02/2025 8:02 AM EDT [facility] MCHC 31.1(L) 32.0 - 37.0 g/dL 06/02/2025 8:02 AM EDT [facility] RDW 13.3 10.5 - 15.5 % 06/02/2025 8:02 AM EDT [facility] RDW-SD 47.5(H) 35.1 - 46.3 fL 06/02/2025 8:02 AM EDT [facility] Platelet Count 281 150 - 400 K/uL 06/02/2025 8:02 AM EDT [facility] Blood PERIPHERAL BLOOD SPECIMEN / Unknown Venipuncture / Unknown 06/02/2025 5:41 AM EDT 06/02/2025 5:45 AM EDT us Rabia Velasco MD LAB BLOOD ORDERABLES Final Resul t [facility] [address] [place] [address], [place] * (ABNORMAL) Hepatic Function Panel (06/02/2025 5:41 AM EDT) Total Protein 6.3(L) 6.4 - 8.3 g/dL 06/02/2025 6:25 AM EDT [facility] Albumin, Blood 2.6(L) 3.5 - 5.2 g/dL 06/02/2025 6:25 AM EDT [facility] Globulin Result 3.7 2.0 - 4.0 g/dL 06/02/2025 6:25 AM EDT [facility] Total Bilirubin 0.3 0.0 - 1.5 mg/dL 06/02/2025 6:25 AM EDT [facility] Direct Bilirubin 0.1 0.0 - 0.3 mg/dL 06/02/2025 6:25 AM EDT [facility] Alkaline Phosphatase 142(H) 40 - 130 U/L 06/02/2025 6:25 AM EDT [facility] AST (SGOT) 21 0 - 40 U/L 06/02/2025 6:25 AM EDT [facility] ALT (SGPT) 8 0 - 40 U/L 06/02/2025 6:25 AM EDT [facility] Blood PERIPHERAL BLOOD SPECIMEN / Unknown Venipuncture / Unknown 06/02/2025 5:41 AM EDT 06/02/2025 5:45 AM EDT us Rabia Velasco MD LAB BLOOD ORDERABLES Final Resul t [facility] [address] [place] [address], [place] * (ABNORMAL) POCT Glucose (06/02/2025 12:15 AM EDT) Glucose, POC 144(H) 70 - 100 mg/dL 06/02/2025 12:41 AM EDT [facility] Comment: @Serial Qkszec=[id number] @Appointment Scheduler XB=[id number] Blood 06/02/2025 12:1 5 AM EDT 06/02/2025 12:41 AM EDT Urban Mondragon MD POCT ORDERABLES - DEVICE Final R esult Performing Organization Address [facility] de Phone Number [facility] [address] [place] [address], [place] * POCT Glucose (06/01/2025 6:00 PM EDT) Glucose, POC 97 70 - 100 mg/dL 06/01/2025 6:03 PM EDT [facility] Comment: @Serial Eqgljq=[id number] @Appointment Scheduler PT=[id number] Blood 06/01/2025 6:00 PM EDT 06/01/2025 6:03 PM EDT Urban Mondragon MD POCT ORDERABLES - DEVICE Final R esult Performing Organization Address [facility] [place] [address], [place] * (ABNORMAL) POCT Glucose (06/01/2025 11:38 AM EDT) Glucose, POC 160(H) 70 - 100 mg/dL 06/01/2025 11:39 AM EDT [facility] Comment: @Serial Frgelw=[id number] @Appointment Scheduler MK=[id number] Blood 06/01/2025 11:3 8 AM EDT 06/01/2025 11:39 AM EDT Urban Mondragon MD POCT ORDERABLES - DEVICE Final R esult Performing Organization Address [facility] Co de Phone Number [facility] [address] [place] [address], [place] * (ABNORMAL) POCT Glucose (06/01/2025 6:46 AM EDT) Glucose, POC 153(H) 70 - 100 mg/dL 06/02/2025 6:18 AM EDT [facility] Comment: @Serial [id number]=[id number] @Appointment Scheduler OC=[id number] Blood 06/01/2025 6:46 AM EDT 06/02/2025 6:18 AM EDT us Quan Coates MD POCT ORDERABLES - DEVICE Final R esult [facility] [address] [place] [address], [place] * (ABNORMAL) Manual Diff and Morph (06/01/2025 5:36 AM EDT) Neutrophil 87(H) 34 - 71 % 06/01/2025 6:16 AM EDT [facility] Lymphocyte 7(L) 19 - 53 % 06/01/2025 6:16 AM EDT [facility] Monocyte 4(L) 5 - 13 % 06/01/2025 6:16 AM EDT [facility] Eosinophil 0(L) 1 - 7 % 06/01/2025 6:16 AM EDT [facility] Basophil 0 0 - 1 % 06/01/2025 6:16 AM EDT [facility] Metamyelocyte 1(H) <=0 % 06/01/2025 6:16 AM EDT [facility] Myelocyte 1(H) <=0 % 06/01/2025 6:16 AM EDT [facility] Absolute Neutrophil Count 17.01(H) 1.60 - 6.10 K/uL 06/01/2025 6:16 AM EDT [facility] Absolute Lymphocyte Count 1.37 1.20 - 3.70 K/uL 06/01/2025 6:16 AM EDT [facility] Absolute Monocyte Count 0.78 0.20 - 0.80 K/uL 06/01/2025 6:16 AM EDT [facility] Absolute Eosinophil Count 0.00(L) 0.04 - 0.54 K/uL 06/01/2025 6:16 AM EDT [facility] Absolute Basophil Count 0.00(L) 0.01 - 0.08 K/uL 06/01/2025 6:16 AM EDT [facility] Platelet Est Normal Normal 06/01/2025 6:16 AM EDT [facility] ANISOCYTOSIS 1+ 06/01/2025 6:16 AM EDT [facility] Poikilocytosis 1+ 06/01/2025 6:16 AM EDT [facility] OVALOCYTES 1+ 06/01/2025 6:16 AM EDT [facility] Total Cells Counted 100 06/01/2025 6:16 AM EDT [facility] Blood PERIPHERAL BLOOD SPECIMEN / Unknown Venipuncture / Unknown 06/01/2025 5:36 AM EDT 06/01/2025 5:41 AM EDT us Rabia Velasco MD LAB BLOOD ORDERABLES Final Resul t [facility] [address] [place] [address], [place] * Phosphorus (06/01/2025 5:36 AM EDT) Phosphorus 3.2 2.7 - 4.5 mg/dL 06/01/2025 6:15 AM EDT [facility] Blood PERIPHERAL BLOOD SPECIMEN / Unknown Venipuncture / Unknown 06/01/2025 5:36 AM EDT 06/01/2025 5:42 AM EDT us Rabia Velasco MD LAB BLOOD ORDERABLES Final Resul t [facility] [address] [place] [address], [place] * Magnesium (06/01/2025 5:36 AM EDT) Magnesium, Blood 2.3 1.6 - 2.6 mg/dL 06/01/2025 6:15 AM EDT [facility] Blood PERIPHERAL BLOOD SPECIMEN / Unknown Venipuncture / Unknown 06/01/2025 5:36 AM EDT 06/01/2025 5:42 AM EDT us Rabia Velasco MD LAB BLOOD ORDERABLES Final Resul t [facility] [address] [place] [address], [place] * (ABNORMAL) Basic Metabolic Panel (06/01/2025 5:36 AM EDT) Sodium 146 135 - 147 mmol/L 06/01/2025 6:15 AM EDT [facility] Potassium 4.1 3.5 - 5.4 mmol/L 06/01/2025 6:15 AM EDT [facility] Chloride 108 96 - 108 mmol/L 06/01/2025 6:15 AM EDT [facility] Total CO2/Bicarbonat e 30 22 - 32 mmol/L 06/01/2025 6:15 AM EDT [facility] Anion Gap 8(L) 10 - 18 mmol/L 06/01/2025 6:15 AM EDT [facility] BUN 46(H) 6 - 20 mg/dL 06/01/2025 6:15 AM EDT [facility] Creatinine, Blood 0.80 0.50 - 1.20 mg/dL 06/01/2025 6:15 AM EDT [facility] Glucose, Blood 151(H) 70 - 100 mg/dL 06/01/2025 6:15 AM EDT [facility] Calcium 9.1 8.4 - 10.3 mg/dL 06/01/2025 6:15 AM EDT [facility] Estimated GFR(CKD-EPI) 96 mL/min/BSA 06/01/2025 6:15 AM EDT [facility] Blood PERIPHERAL BLOOD SPECIMEN / Unknown Venipuncture / Unknown 06/01/2025 5:36 AM EDT 06/01/2025 5:42 AM EDT us Rabia Velasco MD LAB BLOOD ORDERABLES Final Resul t [facility] [address] [place] [address], [place] * (ABNORMAL) CBC and Differential (06/01/2025 5:36 AM EDT) WBC 19.55(H) 4.00 - 10.00 K/uL 06/01/2025 6:16 AM EDT [facility] RBC 4.28(L) 4.60 - 6.10 M/uL 06/01/2025 6:16 AM EDT [facility] Hemoglobin 13.0(L) 13.7 - 17.5 g/dL 06/01/2025 6:16 AM EDT [facility] Hematocrit 40.9 40.0 - 51.0 % 06/01/2025 6:16 AM EDT [facility] MCV 96 82 - 98 fL 06/01/2025 6:16 AM EDT [facility] MCH 30.4 26.0 - 32.0 pg 06/01/2025 6:16 AM EDT [facility] MCHC 31.8(L) 32.0 - 37.0 g/dL 06/01/2025 6:16 AM EDT [facility] RDW 13.4 10.5 - 15.5 % 06/01/2025 6:16 AM EDT [facility] RDW-SD 47.8(H) 35.1 - 46.3 fL 06/01/2025 6:16 AM EDT [facility] Platelet Count 327 150 - 400 K/uL 06/01/2025 6:16 AM EDT [facility] Blood PERIPHERAL BLOOD SPECIMEN / Unknown Venipuncture / Unknown 06/01/2025 5:36 AM EDT 06/01/2025 5:41 AM EDT us Rabia Velasco MD LAB BLOOD ORDERABLES Final Resul t [facility] [address] [place] [address], * (ABNORMAL) Hepatic Function Panel (06/01/2025 5:36 AM EDT) Total Protein 6.1(L) 6.4 - 8.3 g/dL 06/01/2025 6:15 AM EDT [facility] Albumin, Blood 2.6(L) 3.5 - 5.2 g/dL 06/01/2025 6:15 AM EDT [facility] Globulin Result 3.5 2.0 - 4.0 g/dL 06/01/2025 6:15 AM EDT [facility] Total Bilirubin 0.2 0.0 - 1.5 mg/dL 06/01/2025 6:15 AM EDT [facility] Direct Bilirubin 0.1 0.0 - 0.3 mg/dL 06/01/2025 6:15 AM EDT [facility] Alkaline Phosphatase 138(H) 40 - 130 U/L 06/01/2025 6:15 AM EDT [facility] AST (SGOT) 22 0 - 40 U/L 06/01/2025 6:15 AM EDT [facility] ALT (SGPT) 9 0 - 40 U/L 06/01/2025 6:15 AM EDT [facility] Blood PERIPHERAL BLOOD SPECIMEN / Unknown Venipuncture / Unknown 06/01/2025 5:36 AM EDT 06/01/2025 5:42 AM EDT us Rabia Velasco MD LAB BLOOD ORDERABLES Final Resul t [facility] [address] [place] [address], [place] * (ABNORMAL) POCT Glucose (06/01/2025 12:53 AM EDT) Glucose, POC 157(H) 70 - 100 mg/dL 06/01/2025 12:55 AM EDT [facility] Comment: @Serial Qzbtyi=[id number] @Appointment Scheduler [id number] Blood 06/01/2025 12:5 3 AM EDT 06/01/2025 12:55 AM EDT us Urban Mondragon MD POCT ORDERABLES - DEVICE Final R esult [facility] [address] [place] [address], [place] * (ABNORMAL) POCT Glucose (05/31/2025 5:39 PM EDT) Glucose, POC 166(H) 70 - 100 mg/dL 05/31/2025 5:46 PM EDT [facility] Comment: @Serial Qtvlzm=[id number] @Appointment Scheduler [id number] Blood 05/31/2025 5:39 PM EDT 05/31/2025 5:46 PM EDT Urban Mondragon MD POCT ORDERABLES - DEVICE Final R esult Performing Organization Address [facility] [place] [address], * (ABNORMAL) POCT Glucose (05/31/2025 12:43 PM EDT) Glucose, POC 182(H) 70 - 100 mg/dL 05/31/2025 12:44 PM EDT [facility] Comment: @Serial Ooqyqi=[id number] @Appointment Scheduler [id number] Blood 05/31/2025 12:4 3 PM EDT 05/31/2025 12:44 PM EDT Urban Mondragon MD POCT ORDERABLES - DEVICE Final R esult Performing Organization Address [facility] [place] [address], * ECG 12 lead (05/31/2025 10:34 AM EDT) Ventricular Heart Rate 78 BPM EKG [facility] Atrial Heart Rate 78 BPM EKG [facility] [place] Interval 122 ms EKG [facility] QRSD Interval 106 ms EKG [facility] QT Interval 414 ms EKG [facility] QTC Interval 471 ms EKG [facility] P [place] 62 degrees EKG [facility] R [place] -28 degrees EKG [facility] T Wave [place] 36 degrees EKG [facility] 05/31/2025 10:3 [...] for Septal infarct are no longer present us Urban Mondragon MD ECG ORDERABLES Final Result Performing Organization Address [facility]/ZIP Co de Phone Number EKG [address] [address] * (ABNORMAL) POCT Glucose (05/31/2025 6:09 AM EDT) Glucose, POC 181(H) 70 - 100 mg/dL 05/31/2025 6:18 AM EDT [facility] Comment: @Serial Uotiwo=[id number] @Appointment Scheduler SB=[id number] Blood 05/31/2025 6:09 AM EDT 05/31/2025 6:18 AM EDT us Urban Mondragon MD POCT ORDERABLES - DEVICE Final R esult Performing Organization Address [facility] Co de Phone Number [facility] [address] [place] [address], * (ABNORMAL) POCT Glucose (05/30/2025 12:35 PM EDT) Glucose, POC 232(H) 70 - 100 mg/dL 05/31/2025 2:24 AM EDT [facility] Comment: @Serial Zdqasq=[id number] @Appointment Scheduler YO=[id number] Blood 05/30/2025 12:3 5 PM EDT 05/31/2025 2:24 AM EDT us Urban Mondragon MD POCT ORDERABLES - DEVICE Final R esult Performing Organization Address [facility] Co de Phone Number [facility] [address] [place] [address], [place] * (ABNORMAL) Manual Diff and Morph (05/30/2025 7:50 AM EDT) Neutrophil 92(H) 34 - 71 % 05/30/2025 12:36 PM EDT [facility] Comment:Toxic Granulation Lymphocyte 2(L) 19 - 53 % 05/30/2025 12:36 PM EDT [facility] Monocyte 4(L) 5 - 13 % 05/30/2025 12:36 PM EDT [facility] Eosinophil 0(L) 1 - 7 % 05/30/2025 12:36 PM EDT [facility] Basophil 0 0 - 1 % 05/30/2025 12:36 PM EDT [facility] Band 1 0 - 5 % 05/30/2025 12:36 PM EDT [facility] Promyelocyte 1(H) <=0 % 05/30/2025 12:36 PM EDT [facility] Nucleated RBC 1(H) <=0 #/100 WBC 05/30/2025 12:36 PM EDT [facility] Absolute Neutrophil Count 19.48(H) 1.60 - 6.10 K/uL 05/30/2025 12:36 PM EDT [facility] Absolute Lymphocyte Count 0.42(L) 1.20 - 3.70 K/uL 05/30/2025 12:36 PM EDT [facility] Absolute Monocyte Count 0.84(H) 0.20 - 0.80 K/uL 05/30/2025 12:36 PM EDT [facility] Absolute Eosinophil Count 0.00(L) 0.04 - 0.54 K/uL 05/30/2025 12:36 PM EDT [facility] Absolute Basophil Count 0.00(L) 0.01 - 0.08 K/uL 05/30/2025 12:36 PM EDT [facility] Platelet Est Unable to perform platelet estimate due to platelet clumping.(A ) Normal 05/30/2025 12:36 PM EDT [facility] ANISOCYTOSIS 1+ 05/30/2025 12:36 PM EDT [facility] Macrocytosis 1+ 05/30/2025 12:36 PM EDT [facility] Poikilocytosis 1+ 05/30/2025 12:36 PM EDT [facility] Echinocytes 1+ 05/30/2025 12:36 PM EDT [facility] OVALOCYTES 1+ 05/30/2025 12:36 PM EDT [facility] TEAR DROP CELLS 1 12:36 PM EDT [facility] Total Cells Counted 100 05/30/2025 12:36 PM EDT [facility] Blood PERIPHERAL BLOOD SPECIMEN / Unknown Venipuncture / Unknown 05/30/2025 7:50 AM EDT 05/30/2025 8:10 AM EDT us Rabia Velasco MD LAB BLOOD ORDERABLES Final Resul t [facility] [address] [place] [address], [place] * Phosphorus (05/30/2025 7:50 AM EDT) Phosphorus 3.0 2.7 - 4.5 mg/dL 05/30/2025 8:58 AM EDT [facility] Blood PERIPHERAL BLOOD SPECIMEN / Unknown Venipuncture / Unknown 05/30/2025 7:50 AM EDT 05/30/2025 8:09 AM EDT us Rabia Velasco MD LAB BLOOD ORDERABLES Final Resul t [facility] [address] [place] [address], [place] * (ABNORMAL) Magnesium (05/30/2025 7:50 AM EDT) Magnesium, Blood 2.7(H) 1.6 - 2.6 mg/dL 05/30/2025 8:58 AM EDT [facility] Blood PERIPHERAL BLOOD SPECIMEN / Unknown Venipuncture / Unknown 05/30/2025 7:50 AM EDT 05/30/2025 8:09 AM EDT us Rabia Velasco MD LAB BLOOD ORDERABLES Final Resul t [facility] [address] [place] [address], * (ABNORMAL) Basic Metabolic Panel (05/30/2025 7:50 AM EDT) Sodium 148(H) 135 - 147 mmol/L 05/30/2025 8:58 AM EDT [facility] Potassium 3.9 3.5 - 5.4 mmol/L 05/30/2025 8:58 AM EDT [facility] Chloride 110(H) 96 - 108 mmol/L 05/30/2025 8:58 AM EDT [facility] Total CO2/Bicarbonat e 28 22 - 32 mmol/L 05/30/2025 8:58 AM EDT [facility] Anion Gap 10 10 - 18 mmol/L 05/30/2025 8:58 AM EDT [facility] BUN 54(H) 6 - 20 mg/dL 05/30/2025 8:58 AM EDT [facility] Creatinine, Blood 1.00 0.50 - 1.20 mg/dL 05/30/2025 8:58 AM EDT [facility] Glucose, Blood 172(H) 70 - 100 mg/dL 05/30/2025 8:58 AM EDT [facility] Calcium 9.0 8.4 - 10.3 mg/dL 05/30/2025 8:58 AM EDT [facility] Blood PERIPHERAL BLOOD SPECIMEN / Unknown Venipuncture / Unknown 05/30/2025 7:50 AM EDT 05/30/2025 8:09 AM EDT us Rabia Velasco MD LAB BLOOD ORDERABLES Final Resul t [facility] [address] [place] [address], [place] * (ABNORMAL) CBC and Differential (05/30/2025 7:50 AM EDT) WBC 20.95(H) 4.00 - 10.00 K/uL 05/30/2025 12:36 PM EDT [facility] RBC 3.76(L) 4.60 - 6.10 M/uL 05/30/2025 12:36 PM EDT [facility] Hemoglobin 11.5(L) 13.7 - 17.5 g/dL 05/30/2025 12:36 PM EDT [facility] Hematocrit 37.0(L) 40.0 - 51.0 % 05/30/2025 12:36 PM EDT [facility] MCV 98 82 - 98 fL 05/30/2025 12:36 PM EDT [facility] MCH 30.6 26.0 - 32.0 pg 05/30/2025 12:36 PM EDT [facility] MCHC 31.1(L) 32.0 - 37.0 g/dL 05/30/2025 12:36 PM EDT [facility] RDW 13.8 10.5 - 15.5 % 05/30/2025 12:36 PM EDT [facility] RDW-SD 49.3(H) 35.1 - 46.3 fL 05/30/2025 12:36 PM EDT [facility] Platelet Count 05/30/2025 12:36 PM EDT [facility] Comment: Unable to report due to platelet clump blue top requested Previously reported as [id number] K/uL on 05/30/2025 at 8:31 AM EDT Platelet Count 05/30/2025 12:36 PM EDT [facility] Comment:Unable to report due to platelet clump blue top requested Blood PERIPHERAL BLOOD SPECIMEN / Unknown Venipuncture / Unknown 05/30/2025 7:50 AM EDT 05/30/2025 8:10 AM EDT us Rabia Velasco MD LAB BLOOD ORDERABLES Final Resul t [facility] [address] [place] [address], [place] * (ABNORMAL) Hepatic Function Panel (05/30/2025 7:50 AM EDT) Total Protein 5.9(L) 6.4 - 8.3 g/dL 05/30/2025 9:17 AM EDT [facility] Albumin, Blood 2.4(L) 3.5 - 5.2 g/dL 05/30/2025 9:17 AM EDT [facility] Globulin Result 3.5 2.0 - 4.0 g/dL 05/30/2025 9:17 AM EDT [facility] Total Bilirubin <0.2 0.0 - 1.5 mg/dL 05/30/2025 9:17 AM EDT [facility] Direct Bilirubin 0.1 0.0 - 0.3 mg/dL 05/30/2025 9:17 AM EDT [facility] Alkaline Phosphatase 132(H) 40 - 130 U/L 05/30/2025 9:17 AM EDT [facility] AST (SGOT) 19 0 - 40 U/L 05/30/2025 9:17 AM EDT [facility] ALT (SGPT) 7 0 - 40 U/L 05/30/2025 9:17 AM EDT [facility] Blood PERIPHERAL BLOOD SPECIMEN / Unknown Venipuncture / Unknown 05/30/2025 7:50 AM EDT 05/30/2025 8:09 AM EDT us Rabia Velasco MD LAB BLOOD ORDERABLES Final Resul t [facility] [address] [place] [address], * (ABNORMAL) POCT Glucose (05/30/2025 5:38 AM EDT) Glucose, POC 174(H) 70 - 100 mg/dL 05/30/2025 5:39 AM EDT [facility] Comment: @Serial Cirkog=[id number] @Appointment Scheduler TG=[id number] Blood 05/30/2025 5:38 AM EDT 05/30/2025 5:39 AM EDT us Rabia Velasco MD POCT ORDERABLES - DEVICE Final R esult Performing Organization Address [facility] de Phone Number [facility] [address] [place] [address], [place] * (ABNORMAL) POCT Glucose (05/29/2025 11:49 PM EDT) Glucose, POC 192(H) 70 - 100 mg/dL 05/30/2025 12:06 AM EDT [facility] Comment: @Serial Yoqopd=[id number] @Appointment Scheduler OK=[id number] Blood 05/29/2025 11:4 9 PM EDT 05/30/2025 12:06 AM EDT us Rabia Velasco MD POCT ORDERABLES - DEVICE Final R esult Performing Organization Address [facility] de Phone Number [facility] [address] [place] [address], [place] * (ABNORMAL) POCT Glucose (05/29/2025 5:32 PM EDT) Glucose, POC 159(H) 70 - 100 mg/dL 05/29/2025 5:33 PM EDT [facility] Comment: @Serial Dhhalm=[id number] @Appointment Scheduler SY=[id number] Blood 05/29/2025 5:32 PM EDT 05/29/2025 5:33 PM EDT us Rabia Velasco MD POCT ORDERABLES - DEVICE Final R esult Performing Organization Address [facility] de Phone Number [facility] [address] [facility] [place] [address], [place] * (ABNORMAL) POCT Glucose (05/29/2025 12:23 PM EDT) Glucose, POC 152(H) 70 - 100 mg/dL 05/29/2025 1:27 PM EDT [facility] Comment: @Serial Ddihnz=[id number] @Appointment Scheduler RI=[id number] Blood 05/29/2025 12:2 3 PM EDT 05/29/2025 1:27 PM EDT Rabia Velasco MD POCT ORDERABLES - DEVICE Final R esult [facility] [address] [place] [address], [place] * XR Abdomen Portable (05/29/2025 11:22 [...] PROCEDURE(S) AND AGREE WITH THE FINDINGS DOCUMENTED. iMguelito Thibodeaux MD, electronically signed on May 30 [...] Heart Rate 94 BPM EKG B[facility] MUSE [place] Interval 132 ms EKG B[facility] MUSE QRSD Interval 102 ms EKG B[facility] MUSE QT Interval 408 ms EKG [facility] MUSE QTC Interval 510 ms EKG [facility] MUSE P [place] 49 degrees EKG [facility] MUSE R [place] -27 degrees EKG [facility] MUSE T Wave [place] 31 degrees EKG BUR MUSE 05/29/2025 11:0 [...] Velasco MD ECG ORDERABLES Final Result EKG B[facility] MUSE [address] [place] [id number] * RBC WBC PLT Morphology (05/29/2025 6:20 AM EDT) Pathologist [facility] Platelet Est Normal Normal 05/29/2025 8:13 AM EDT [facility] ANISOCYTOSIS 1+ 05/29/2025 8:13 AM EDT [facility] Microcytosis 1+ 05/29/2025 8:13 AM EDT [facility] POLYCHROMASIA 1+ 05/29/2025 8:13 AM EDT [facility] Poikilocytosis 1+ 05/29/2025 8:13 AM EDT [facility] OVALOCYTES 1+ 05/29/2025 8:13 AM EDT [facility] SPHEROCYTES 1+ 05/29/2025 8:13 AM EDT [facility] TEAR DROP CELLS 1+ 8:13 AM EDT [facility] ACANTHOCYTES 1+ 05/29/2025 8:13 AM EDT [facility] Blood PERIPHERAL BLOOD SPECIMEN / Unknown Venipuncture / Unknown 05/29/2025 6:20 AM EDT 05/29/2025 6:29 AM EDT us Rabia Velasco MD LAB BLOOD ORDERABLES Final Resul t Performing Organization Address City/[facility]/ZIP Co de Phone Number [facility] [address] [place] [address], [place] * Phosphorus (05/29/2025 6:20 AM EDT) Phosphorus 3.5 2.7 - 4.5 mg/dL 05/29/2025 7:01 AM EDT [facility] Blood PERIPHERAL BLOOD SPECIMEN / Unknown Venipuncture / Unknown 05/29/2025 6:20 AM EDT 05/29/2025 6:27 AM EDT us Rabia Velasco MD LAB BLOOD ORDERABLES Final Resul t [facility] [address] [place] [address], [place] * (ABNORMAL) Magnesium (05/29/2025 6:20 AM EDT) Magnesium, Blood 2.9(H) 1.6 - 2.6 mg/dL 05/29/2025 7:01 AM EDT [facility] Blood PERIPHERAL BLOOD SPECIMEN / Unknown Venipuncture / Unknown 05/29/2025 6:20 AM EDT 05/29/2025 6:27 AM EDT us Rabia Velasco MD LAB BLOOD ORDERABLES Final Resul t [facility] [address] [place] [address], [place] * (ABNORMAL) Basic Metabolic Panel (05/29/2025 6:20 AM EDT) Sodium 147 135 - 147 mmol/L 05/29/2025 7:01 AM EDT [facility] Potassium 3.7 3.5 - 5.4 mmol/L 05/29/2025 7:01 AM EDT [facility] Chloride 108 96 - 108 mmol/L 05/29/2025 7:01 AM EDT [facility] Total CO2/Bicarbonat e 29 22 - 32 mmol/L 05/29/2025 7:01 AM EDT [facility] Anion Gap 10 10 - 18 mmol/L 05/29/2025 7:01 AM EDT [facility] BUN 43(H) 6 - 20 mg/dL 05/29/2025 7:01 AM EDT [facility] Creatinine, Blood 0.90 0.50 - 1.20 mg/dL 05/29/2025 7:01 AM EDT [facility] Glucose, Blood 128(H) 70 - 100 mg/dL 05/29/2025 7:01 AM EDT [facility] Calcium 9.0 8.4 - 10.3 mg/dL 05/29/2025 7:01 AM EDT [facility] Blood PERIPHERAL BLOOD SPECIMEN / Unknown Venipuncture / Unknown 05/29/2025 6:20 AM EDT 05/29/2025 6:27 AM EDT us Rabia Velasco MD LAB BLOOD ORDERABLES Final Resul t Performing Organization Address City/[facility]/ZIP Co de Phone Number [facility] [address] [place] [address], [place] * (ABNORMAL) CBC and Differential (05/29/2025 6:20 AM EDT) WBC 15.58(H) 4.00 - 10.00 K/uL 05/29/2025 8:13 AM [facility] RBC 3.78(L) 4.60 - 6.10 M/uL 05/29/2025 8:13 AM [facility] Hemoglobin 11.5(L) 13.7 - 17.5 g/dL 05/29/2025 8:13 AM [facility] Hematocrit 36.6(L) 40.0 - 51.0 % 05/29/2025 8:13 AM [facility] MCV 97 82 - 98 fL 05/29/2025 8:13 AM [facility] MCH 30.4 26.0 - 32.0 pg 05/29/2025 8:13 AM [facility] MCHC 31.4(L) 32.0 - 37.0 g/dL 05/29/2025 8:13 AM [facility] RDW 13.4 10.5 - 15.5 % 05/29/2025 8:13 AM [facility] RDW-SD 48.3(H) 35.1 - 46.3 fL 05/29/2025 8:13 AM [facility] Platelet Count 313 150 - 400 K/uL 05/29/2025 8:13 AM [facility] Nucleated RBC 0 <=0 #/100 WBC 05/29/2025 8:13 AM [facility] Neutrophil 87.7(H) 34.0 - 71.0 % 05/29/2025 8:13 AM [facility] Lymphocyte 3.8(L) 19.0 - 53.0 % 05/29/2025 8:13 AM [facility] Monocyte 3.8(L) 5.0 - 13.0 % 05/29/2025 8:13 AM [facility] Eosinophil 0.1(L) 1.0 - 7.0 % 05/29/2025 8:13 AM [facility] Basophil 0.6 0.0 - 1.0 % 05/29/2025 8:13 AM [facility] Immature Granulocyte ([place], Myelo, Promyelocyte) 4.0(H) 0.0 - 0.6 % 05/29/2025 8:13 AM EDT [facility] Absolute Neutrophil Count 13.67(H) 1.60 - 6.10 K/uL 05/29/2025 8:13 AM EDT [facility] Absolute Lymphocyte Count 0.59(L) 1.20 - 3.70 K/uL 05/29/2025 8:13 AM EDT [facility] Absolute Monocyte Count 0.59 0.20 - 0.80 K/uL 05/29/2025 8:13 AM EDT [facility] Absolute Eosinophil Count 0.01(L) 0.04 - 0.54 K/uL 05/29/2025 8:13 AM EDT [facility] Absolute Basophil Count 0.10(H) 0.01 - 0.08 K/uL 05/29/2025 8:13 AM EDT [facility] Absolute Immature Granulocyte ([place], Myelo, Promyelocyte) 0.62(H) 0.00 - 0.09 K/uL 05/29/2025 8:13 AM EDT [facility] Blood PERIPHERAL BLOOD SPECIMEN / Unknown Venipuncture / Unknown 05/29/2025 6:20 AM EDT 05/29/2025 6:29 AM EDT us Rabia Velasco MD LAB BLOOD ORDERABLES Final Resul t [facility] [address] [place] [address], * (ABNORMAL) Hepatic Function Panel (05/29/2025 6:20 AM EDT) Total Protein 6.4 6.4 - 8.3 g/dL 05/29/2025 7:01 AM EDT [facility] Albumin, Blood 2.6(L) 3.5 - 5.2 g/dL 05/29/2025 7:01 AM EDT [facility] Globulin Result 3.8 2.0 - 4.0 g/dL 05/29/2025 7:01 AM EDT [facility] Total Bilirubin 0.2 0.0 - 1.5 mg/dL 05/29/2025 7:01 AM EDT [facility] Direct Bilirubin 0.1 0.0 - 0.3 mg/dL 05/29/2025 7:01 AM EDT [facility] Alkaline Phosphatase 105 40 - 130 U/L 05/29/2025 7:01 AM EDT [facility] AST (SGOT) 16 0 - 40 U/L 05/29/2025 7:01 AM EDT [facility] ALT (SGPT) 8 0 - 40 U/L 05/29/2025 7:01 AM EDT [facility] Blood PERIPHERAL BLOOD SPECIMEN / Unknown Venipuncture / Unknown 05/29/2025 6:20 AM EDT 05/29/2025 6:27 AM EDT us Rabia Velasco MD LAB BLOOD ORDERABLES Final Resul t Performing Organization Address City/[facility]/ZIP Co de Phone Number [facility] [address] [place] [address], [place] * (ABNORMAL) POCT Glucose (05/29/2025 5:38 AM EDT) Glucose, POC 122(H) 70 - 100 mg/dL 05/29/2025 10:00 AM EDT [facility] Comment: @Serial Bwdrez=[id number] @Appointment Scheduler FH=[id number] Blood 05/29/2025 5:38 AM EDT 05/29/2025 10:00 AM EDT us Rabia Velasco MD POCT ORDERABLES - DEVICE Final R esult [facility] [address] [place] [address], [place] * (ABNORMAL) POCT Glucose (05/28/2025 11:56 PM EDT) Glucose, POC 171(H) 70 - 100 mg/dL 05/29/2025 12:14 AM EDT [facility] Comment: @Serial Gebqco=[id number] @Appointment Scheduler PB=[id number] Blood 05/28/2025 11:5 6 PM EDT 05/29/2025 12:14 AM EDT us Rabia Velasco MD POCT ORDERABLES - DEVICE Final R esult Performing Organization Address [facility] de Phone Number [facility] [address] [place] [address], [place] * (ABNORMAL) POCT Glucose (05/28/2025 5:50 PM EDT) Glucose, POC 172(H) 70 - 100 mg/dL 05/28/2025 5:54 PM EDT [facility] Comment: @Serial Annvgy=[id number] @Appointment Scheduler GC=[id number] Blood 05/28/2025 5:50 PM EDT 05/28/2025 5:54 PM EDT us Rabia Velasco MD POCT ORDERABLES - DEVICE Final R esult Performing Organization Address [facility] [place] [address], [place] * (ABNORMAL) POCT Glucose (05/28/2025 12:23 PM EDT) Glucose, POC 191(H) 70 - 100 mg/dL 05/28/2025 12:24 PM EDT [facility] Comment: @Serial Aburwk=[id number] @Appointment Scheduler ZO=[id number] Blood 05/28/2025 12:2 3 PM EDT 05/28/2025 12:24 PM EDT us Rabia Velasco MD POCT ORDERABLES - DEVICE Final R esult Performing Organization Address City/[facility] [place] [address], [place] * XR Abdomen Portable (05/28/2025 11:10 [...] (ABNORMAL) C-Reactive Protein (05/28/2025 5:53 AM EDT) C-Reactive Protein (CRP) >300.0(H) 0.0 - 5.0 mg/L 05/28/2025 12:39 PM EDT [facility] Blood PERIPHERAL BLOOD SPECIMEN / Unknown Venipuncture / Unknown 05/28/2025 5:53 AM EDT 05/28/2025 6:01 AM EDT us Rabia Velasco MD LAB BLOOD ORDERABLES Final Resul t [facility] [address] [place] [address], [place] * (ABNORMAL) POCT Glucose (05/28/2025 5:53 AM EDT) Glucose, POC 179(H) 70 - 100 mg/dL 05/28/2025 5:54 AM EDT [facility] Comment: @Serial Olabkj=[id number] @Appointment Scheduler CO=[id number] Blood 05/28/2025 5:53 AM EDT 05/28/2025 5:54 AM EDT us Rabia Velasco MD POCT ORDERABLES - DEVICE Final R esult [facility] [address] [place] [address], [place] * Phosphorus (05/28/2025 5:53 AM EDT) Phosphorus 3.7 2.7 - 4.5 mg/dL 05/28/2025 6:37 AM EDT [facility] Blood PERIPHERAL BLOOD SPECIMEN / Unknown Venipuncture / Unknown 05/28/2025 5:53 AM EDT 05/28/2025 6:01 AM EDT us Rabia Velasco MD LAB BLOOD ORDERABLES Final Resul t [facility] [address] [place] [address], [place] * Magnesium (05/28/2025 5:53 AM EDT) Magnesium, Blood 2.5 1.6 - 2.6 mg/dL 05/28/2025 6:37 AM EDT [facility] Blood PERIPHERAL BLOOD SPECIMEN / Unknown Venipuncture / Unknown 05/28/2025 5:53 AM EDT 05/28/2025 6:01 AM EDT us Rabia Velasco MD LAB BLOOD ORDERABLES Final Resul t [facility] [address] [place] [address], * (ABNORMAL) Basic Metabolic Panel (05/28/2025 5:53 AM EDT) Sodium 145 135 - 147 mmol/L 05/28/2025 6:37 AM EDT [facility] Potassium 4.3 3.5 - 5.4 mmol/L 05/28/2025 6:37 AM EDT [facility] Chloride 106 96 - 108 mmol/L 05/28/2025 6:37 AM EDT [facility] Total CO2/Bicarbonat e 27 22 - 32 mmol/L 05/28/2025 6:37 AM EDT [facility] Anion Gap 12 10 - 18 mmol/L 05/28/2025 6:37 AM EDT [facility] BUN 36(H) 6 - 20 mg/dL 05/28/2025 6:37 AM EDT [facility] Creatinine, Blood 1.00 0.50 - 1.20 mg/dL 05/28/2025 6:37 AM EDT [facility] Glucose, Blood 174(H) 70 - 100 mg/dL 05/28/2025 6:37 AM EDT [facility] Calcium 9.1 8.4 - 10.3 mg/dL 05/28/2025 6:37 AM EDT [facility] Blood PERIPHERAL BLOOD SPECIMEN / Unknown Venipuncture / Unknown 05/28/2025 5:53 AM EDT 05/28/2025 6:01 AM EDT us Rabia Velasco MD LAB BLOOD ORDERABLES Final Resul t Performing Organization Address City/[facility]/ZIP Co de Phone Number [facility] [address] [place] [address], [place] * (ABNORMAL) Hepatic Function Panel (05/28/2025 5:53 AM EDT) Total Protein 6.4 6.4 - 8.3 g/dL 05/28/2025 6:37 AM EDT [facility] Albumin, Blood 2.6(L) 3.5 - 5.2 g/dL 05/28/2025 6:37 AM EDT [facility] Globulin Result 3.8 2.0 - 4.0 g/dL 05/28/2025 6:37 AM EDT [facility] Total Bilirubin 0.2 0.0 - 1.5 mg/dL 05/28/2025 6:37 AM EDT [facility] Direct Bilirubin 0.1 0.0 - 0.3 mg/dL 05/28/2025 6:37 AM EDT [facility] Alkaline Phosphatase 103 40 - 130 U/L 05/28/2025 6:37 AM EDT [facility] AST (SGOT) 13 0 - 40 U/L 05/28/2025 6:37 AM EDT [facility] ALT (SGPT) 7 0 - 40 U/L 05/28/2025 6:37 AM EDT [facility] Blood PERIPHERAL BLOOD SPECIMEN / Unknown Venipuncture / Unknown 05/28/2025 5:53 AM EDT 05/28/2025 6:01 AM EDT Rabia Velasco MD LAB BLOOD ORDERABLES Final Resul t [facility] [address] [place] [address], [place] * (ABNORMAL) Manual Diff and Morph (05/28/2025 5:52 AM EDT) Pathologist [facility] Neutrophil 90(H) 34 - 71 % 05/28/2025 7:06 AM EDT [facility] Lymphocyte 1(L) 19 - 53 % 05/28/2025 7:06 AM EDT [facility] Monocyte 9 5 - 13 % 05/28/2025 7:06 AM EDT [facility] Eosinophil 0(L) 1 - 7 % 05/28/2025 7:06 AM EDT [facility] Basophil 0 0 - 1 % 05/28/2025 7:06 AM EDT [facility] Absolute Neutrophil Count 12.87(H) 1.60 - 6.10 K/uL 05/28/2025 7:06 AM EDT [facility] Absolute Lymphocyte Count 0.14(L) 1.20 - 3.70 K/uL 05/28/2025 7:06 AM EDT [facility] Absolute Monocyte Count 1.29(H) 0.20 - 0.80 K/uL 05/28/2025 7:06 AM EDT [facility] Absolute Eosinophil Count 0.00(L) 0.04 - 0.54 K/uL 05/28/2025 7:06 AM EDT [facility] Absolute Basophil Count 0.00(L) 0.01 - 0.08 K/uL 05/28/2025 7:06 AM EDT [facility] Platelet Est Normal Normal 05/28/2025 7:06 AM EDT [facility] ANISOCYTOSIS 1+ 05/28/2025 7:06 AM EDT [facility] Poikilocytosis 1+ 05/28/2025 7:06 AM EDT [facility] OVALOCYTES 1+ 05/28/2025 7:06 AM EDT [facility] SPHEROCYTES 1+ 05/28/2025 7:06 AM EDT [facility] TEAR DROP CELLS 1+ 7:06 AM EDT [facility] Total Cells Counted 100 05/28/2025 7:06 AM EDT [facility] Blood PERIPHERAL BLOOD SPECIMEN / Unknown Venipuncture / Unknown 05/28/2025 5:52 AM EDT 05/28/2025 6:01 AM EDT us Rabia Velasco MD LAB BLOOD ORDERABLES Final Resul t [facility] [address] [place] [address], [place] * (ABNORMAL) CBC and Differential (05/28/2025 5:52 AM EDT) Pathologist [facility] WBC 14.30(H) 4.00 - 10.00 K/uL 05/28/2025 7:07 AM EDT [facility] RBC 3.83(L) 4.60 - 6.10 M/uL 05/28/2025 7:07 AM EDT [facility] Hemoglobin 11.7(L) 13.7 - 17.5 g/dL 05/28/2025 7:07 AM EDT [facility] Hematocrit 37.0(L) 40.0 - 51.0 % 05/28/2025 7:07 AM EDT [facility] MCV 97 82 - 98 fL 05/28/2025 7:07 AM EDT [facility] MCH 30.5 26.0 - 32.0 pg 05/28/2025 7:07 AM EDT [facility] MCHC 31.6(L) 32.0 - 37.0 g/dL 05/28/2025 7:07 AM EDT [facility] RDW 13.3 10.5 - 15.5 % 05/28/2025 7:07 AM EDT [facility] RDW-SD 47.6(H) 35.1 - 46.3 fL 05/28/2025 7:07 AM EDT [facility] Platelet Count 319 150 - 400 K/uL 05/28/2025 7:07 AM EDT [facility] Blood PERIPHERAL BLOOD SPECIMEN / Unknown Venipuncture / Unknown 05/28/2025 5:52 AM EDT 05/28/2025 6:01 AM EDT us Rabia Velasco MD LAB BLOOD ORDERABLES Final Resul t [facility] [address] [place] [address], * (ABNORMAL) POCT Glucose (05/28/2025 12:00 AM EDT) Pathologist [facility] Glucose, POC 145(H) 70 - 100 mg/dL 05/28/2025 12:06 AM EDT [facility] Comment: @Serial [id number] @Appointment Scheduler SM=[id number] Blood 05/28/2025 12:0 0 AM EDT 05/28/2025 12:06 AM EDT Rabia Velasco MD POCT ORDERABLES - DEVICE Final R esult [facility] [address] [place] [address], [place] * ECG 12 lead (2025 9:30 PM EDT) Ventricular Heart Rate 129 BPM EKG [facility] Atrial Heart Rate 129 BPM EKG [facility] [place] Interval 138 ms EKG [facility] QRSD Interval 90 ms EKG [facility] QT Interval 320 ms EKG [facility] QTC Interval 468 ms EKG [facility] P [place] 56 degrees EKG [facility] R [place] -44 degrees EKG [facility] T Wave [place] 36 degrees EKG [facility] 2025 9:25 [...] of 25 May 2025 no significant change Rabia Velasco MD ECG ORDERABLES Final Result EKG [facility] [address] [place] [id number] * CT Angiogram Chest PE : Arteriogram [...] - 2.0 mmol/L 2025 8:34 PM EDT [facility] Blood PERIPHERAL BLOOD SPECIMEN / Unknown Venipuncture / Unknown 2025 8:28 PM EDT 2025 8:31 PM EDT us Rabia Velasco MD LAB BLOOD ORDERABLES Final Resul t [facility] [address] [place] [address], * (ABNORMAL) Blood Gas, Venous (2025 8:28 PM EDT) pH, Venous 7.47(H) 7.35 - 7.45 2025 8:35 PM EDT [facility] pCO2, Venous 41 35 - 45 mmHg 2025 8:35 PM EDT [facility] pO2, Venous 82 80 - 105 mmHg 2025 8:35 PM EDT [facility] HCO3, Venous 30 21 - 30 mmol/L 2025 8:35 PM EDT [facility] Carboxyhemoglo bin, VBG 1.6(H) 0.5 - 1.5 % 2025 8:35 PM EDT [facility] Methemoglobin, VBG 1.0(H) 0.2 - 0.6 % 2025 8:35 PM EDT [facility] Blood Venipuncture / Unknown 2025 8:28 PM EDT 2025 8:31 PM EDT us Rabia Velasco MD LAB BLOOD ORDERABLES Final Resul t [facility] [address] [place] [address], [place] * Phosphorus (2025 8:23 PM EDT) Phosphorus 3.1 2.7 - 4.5 mg/dL 2025 9:04 PM EDT [facility] Blood PERIPHERAL BLOOD SPECIMEN / Unknown Venipuncture / Unknown 2025 8:23 PM EDT 2025 8:27 PM EDT Rabia Velasco MD LAB BLOOD ORDERABLES Final Resul t Performing Organization Address City/[facility]/ZIP Co de Phone Number [facility] [address] [place] [address], [place] * Magnesium (2025 8:23 PM EDT) Magnesium, Blood 2.3 1.6 - 2.6 mg/dL 2025 9:04 PM EDT [facility] Blood PERIPHERAL BLOOD SPECIMEN / Unknown Venipuncture / Unknown 2025 8:23 PM EDT 2025 8:27 PM EDT us Rabia Velasco MD LAB BLOOD ORDERABLES Final Resul t [facility] [address] [place] [address], [place] * (ABNORMAL) Comprehensive Metabolic Panel (2025 8:23 PM EDT) Sodium 145 135 - 147 mmol/L 2025 9:04 PM [facility] Potassium 4.0 3.5 - 5.4 mmol/L 2025 9:04 PM [facility] Chloride 106 96 - 108 mmol/L 2025 9:04 PM [facility] Total CO2/Bicarbonate 27 22 - 32 mmol/L 2025 9:04 PM [facility] Anion Gap 12 10 - 18 mmol/L 2025 9:04 PM [facility] BUN 36(H) 6 - 20 mg/dL 2025 9:04 PM [facility] Creatinine, Blood 0.90 0.50 - 1.20 mg/dL 2025 9:04 PM [facility] Glucose, Blood 168(H) 70 - 100 mg/dL 2025 9:04 PM [facility] Calcium 9.1 8.4 - 10.3 mg/dL 2025 9:04 PM [facility] Total Protein 6.5 6.4 - 8.3 g/dL 2025 9:04 PM [facility] Albumin, Blood 2.9(L) 3.5 - 5.2 g/dL 2025 9:04 PM [facility] Globulin Result 3.6 2.0 - 4.0 g/dL 2025 9:04 PM [facility] AST (SGOT) 15 0 - 40 U/L 2025 9:04 PM [facility] ALT (SGPT) 8 0 - 40 U/L 2025 9:04 PM [facility] Alkaline Phosphatase 125 40 - 130 U/L 2025 9:04 PM [facility] Total Bilirubin 0.2 0.0 - 1.5 mg/dL 2025 9:04 PM [facility] Blood PERIPHERAL BLOOD SPECIMEN / Unknown Venipuncture / Unknown 2025 8:23 PM EDT 2025 8:27 PM EDT Rabia Velasco MD LAB BLOOD ORDERABLES Final Resul t [facility] [address] [place] [address], [place] * (ABNORMAL) CBC (2025 8:23 PM EDT) WBC 13.35(H) 4.00 - 10.00 K/uL 2025 8:40 PM EDT [facility] RBC 4.25(L) 4.60 - 6.10 M/uL 2025 8:40 PM EDT [facility] Hemoglobin 12.8(L) 13.7 - 17.5 g/dL 2025 8:40 PM EDT [facility] Hematocrit 40.6 40.0 - 51.0 % 2025 8:40 PM EDT [facility] MCV 96 82 - 98 fL 2025 8:40 PM EDT [facility] MCH 30.1 26.0 - 32.0 pg 2025 8:40 PM EDT [facility] MCHC 31.5(L) 32.0 - 37.0 g/dL 2025 8:40 PM EDT [facility] RDW 13.2 10.5 - 15.5 % 2025 8:40 PM EDT [facility] RDW-SD 46.8(H) 35.1 - 46.3 fL 2025 8:40 PM EDT [facility] Platelet Count 328 150 - 400 K/uL 2025 8:40 PM EDT [facility] Nucleated RBC 0 <=0 #/100 WBC 2025 8:40 PM EDT [facility] Blood PERIPHERAL BLOOD SPECIMEN / Unknown Venipuncture / Unknown 2025 8:23 PM EDT 2025 8:27 PM EDT Rabia Velasco MD LAB BLOOD ORDERABLES Final Resul t [facility] [address] [place] [address], [place] * Culture, Respiratory (Incl Gram) (2025 5:55 PM EDT) [facility] Respiratory Culture Heavy growth commensal respiratory nuvia STEPHEN 05/31/2025 2:23 PM EDT [facility] Smear,Gram Stain >25 PMNs and <10 epithelial cells/100X field 05/31/2025 2:23 PM EDT [facility] Smear,Gram Stain 4+ Multiple Organisms Present Consistent with Oropharyngeal Nuvia 05/31/2025 2:23 PM EDT [facility] Respiratory SPUTUM SPECIMEN OBTAINED BY SPUTUM INDUCTION / Unknown Collection / Unknown 2025 5:55 PM EDT 2025 6:16 PM EDT us Rabia Velasco MD MICROBIOLOGY - GENERAL ORDERABLE S Final Result Performing Organization Address [facility] de Phone Number [facility] [address] [place] [address], * (ABNORMAL) POCT Glucose (2025 5:49 PM EDT) [facility] Glucose, POC 168(H) 70 - 100 mg/dL 2025 5:56 PM EDT [facility] Comment: @Serial Sdswvt=[id number] @Appointment Scheduler [id number] Blood 2025 5:49 PM EDT 2025 5:56 PM EDT us Rabia Velasco MD POCT ORDERABLES - DEVICE Final R esult Performing Organization Address [facility]/ZIP Co de Phone Number [facility] [address] [place] [address], * Nasal MRSA/SA By PCR (2025 3:35 PM EDT) [facility] MRSA PCR Negative Negative 05/28/2025 10:52 AM EDT [facility] S. aureus PCR Negative Negative 05/28/2025 10:52 AM EDT [facility] Swab BOTH ANTERIOR NARES / Unknown 2025 3:35 PM EDT 2025 4:00 PM EDT Narrative [facility] - 05/28/2025 10:52 AM EDT Test performed by GeneXpert real-time PCR. us Rabia Velasco MD MICROBIOLOGY - GENERAL ORDERABLE S Final Result Performing Organization Address [facility] de Phone Number [facility] [address] [place] [address], [place] * (ABNORMAL) POCT Glucose (2025 2:37 PM EDT) Glucose, POC 196(H) 70 - 100 mg/dL 2025 2:38 PM EDT [facility] Comment: @Serial Vyeyrz=[id number] @Appointment Scheduler [phone]=[id number] Blood 2025 2:37 PM EDT 2025 2:38 PM EDT us Rabia Velasco MD POCT ORDERABLES - DEVICE Final R esult Performing Organization Address [facility] Phone Number [facility] [address] [place] [address], [place] * XR Chest 1 VW Portable [...] Doe MD, electronically signed on 2025 03:19PM Rabia Velasco MD IMG DIAGNOSTIC IMAGING ORDERABLE S Final Result * (ABNORMAL) Manual Diff and Morph (2025 6:34 AM EDT) Neutrophil 84(H) 34 - 71 % 2025 9:23 AM EDT [facility] Lymphocyte 6(L) 19 - 53 % 2025 9:23 AM EDT [facility] Monocyte 8 5 - 13 % 2025 9:23 AM EDT [facility] Eosinophil 0(L) 1 - 7 % 2025 9:23 AM EDT [facility] Basophil 0 0 - 1 % 2025 9:23 AM EDT [facility] Band 2 0 - 5 % 2025 9:23 AM EDT [facility] Absolute Neutrophil Count 11.20(H) 1.60 - 6.10 K/uL 2025 9:23 AM EDT [facility] Absolute Lymphocyte Count 0.78(L) 1.20 - 3.70 K/uL 2025 9:23 AM EDT [facility] Absolute Monocyte Count 1.04(H) 0.20 - 0.80 K/uL 2025 9:23 AM EDT [facility] Absolute Eosinophil Count 0.00(L) 0.04 - 0.54 K/uL 2025 9:23 AM EDT [facility] Absolute Basophil Count 0.00(L) 0.01 - 0.08 K/uL 2025 9:23 AM EDT [facility] Platelet Est Normal Normal 2025 9:23 AM EDT [facility] Total Cells Counted 100 2025 9:23 AM EDT [facility] Blood PERIPHERAL BLOOD SPECIMEN / Unknown Venipuncture / Unknown 2025 6:34 AM EDT 2025 7:45 AM EDT us Rabia Velasco MD LAB BLOOD ORDERABLES Final Resul t [facility] [address] [place] [address], [place] * Phosphorus (2025 6:34 AM EDT) Phosphorus 2.7 2.7 - 4.5 mg/dL 2025 8:23 AM EDT [facility] Blood PERIPHERAL BLOOD SPECIMEN / Unknown Venipuncture / Unknown 2025 6:34 AM EDT 2025 7:44 AM EDT us Rabia Velasco MD LAB BLOOD ORDERABLES Final Resul t [facility] [address] [place] [address], [place] * Magnesium (2025 6:34 AM EDT) Magnesium, Blood 2.4 1.6 - 2.6 mg/dL 2025 8:23 AM EDT [facility] Blood PERIPHERAL BLOOD SPECIMEN / Unknown Venipuncture / Unknown 2025 6:34 AM EDT 2025 7:44 AM EDT us Rabia Velasco MD LAB BLOOD ORDERABLES Final Resul t [facility] [address] [place] [address], [place] * (ABNORMAL) Basic Metabolic Panel (2025 6:34 AM EDT) Sodium 144 135 - 147 mmol/L 2025 8:23 AM EDT [facility] Potassium 3.7 3.5 - 5.4 mmol/L 2025 8:23 AM EDT [facility] Chloride 103 96 - 108 mmol/L 2025 8:23 AM EDT [facility] Total CO2/Bicarbonat e 28 22 - 32 mmol/L 2025 8:23 AM EDT [facility] Anion Gap 13 10 - 18 mmol/L 2025 8:23 AM EDT [facility] BUN 39(H) 6 - 20 mg/dL 2025 8:23 AM EDT [facility] Creatinine, Blood 1.00 0.50 - 1.20 mg/dL 2025 8:23 AM EDT [facility] Glucose, Blood 238(H) 70 - 100 mg/dL 2025 8:23 AM EDT [facility] Calcium 9.4 8.4 - 10.3 mg/dL 2025 8:23 AM EDT [facility] Blood PERIPHERAL BLOOD SPECIMEN / Unknown Venipuncture / Unknown 2025 6:34 AM EDT 2025 7:44 AM EDT us Rabia Velasco MD LAB BLOOD ORDERABLES Final Resul t [facility] [address] [place] [address], [place] * (ABNORMAL) CBC and Differential (2025 6:34 AM EDT) Pathologist [facility] WBC 13.02(H) 4.00 - 10.00 K/uL 2025 9:23 AM EDT [facility] RBC 4.13(L) 4.60 - 6.10 M/uL 2025 9:23 AM EDT [facility] Hemoglobin 12.7(L) 13.7 - 17.5 g/dL 2025 9:23 AM EDT [facility] Hematocrit 39.8(L) 40.0 - 51.0 % 2025 9:23 AM EDT [facility] MCV 96 82 - 98 fL 2025 9:23 AM EDT [facility] MCH 30.8 26.0 - 32.0 pg 2025 9:23 AM EDT [facility] MCHC 31.9(L) 32.0 - 37.0 g/dL 2025 9:23 AM EDT [facility] RDW 13.1 10.5 - 15.5 % 2025 9:23 AM EDT [facility] RDW-SD 46.7(H) 35.1 - 46.3 fL 2025 9:23 AM EDT [facility] Platelet Count 343 150 - 400 K/uL 2025 9:23 AM EDT [facility] Blood PERIPHERAL BLOOD SPECIMEN / Unknown Venipuncture / Unknown 2025 6:34 AM EDT 2025 7:45 AM EDT us Rabia Velasco MD LAB BLOOD ORDERABLES Final Resul t [facility] [address] [place] [address], [place] * (ABNORMAL) Hepatic Function Panel (2025 6:34 AM EDT) Pathologist [facility] Total Protein 6.9 6.4 - 8.3 g/dL 2025 8:39 AM EDT [facility] Albumin, Blood 3.1(L) 3.5 - 5.2 g/dL 2025 8:39 AM EDT [facility] Globulin Result 3.8 2.0 - 4.0 g/dL 2025 8:39 AM EDT [facility] Total Bilirubin 0.2 0.0 - 1.5 mg/dL 2025 8:39 AM EDT [facility] Direct Bilirubin <0.1 0.0 - 0.3 mg/dL 2025 8:39 AM EDT [facility] Alkaline Phosphatase 141(H) 40 - 130 U/L 2025 8:39 AM EDT [facility] AST (SGOT) 16 0 - 40 U/L 2025 8:39 AM EDT [facility] ALT (SGPT) 10 0 - 40 U/L 2025 8:39 AM EDT [facility] Blood PERIPHERAL BLOOD SPECIMEN / Unknown Venipuncture / Unknown 2025 6:34 AM EDT 2025 7:44 AM EDT us Rabia Velasco MD LAB BLOOD ORDERABLES Final Resul t [facility] [address] [place] [address], * Phosphorus (05/26/2025 7:16 AM EDT) Phosphorus 3.8 2.7 - 4.5 mg/dL 05/26/2025 8:09 AM EDT [facility] Blood PERIPHERAL BLOOD SPECIMEN / Unknown Venipuncture / Unknown 05/26/2025 7:16 AM EDT 05/26/2025 7:31 AM EDT us Rabia Velasco MD LAB BLOOD ORDERABLES Final Resul t [facility] [address] [place] [address], * Magnesium (05/26/2025 7:16 AM EDT) Magnesium, Blood 2.3 1.6 - 2.6 mg/dL 05/26/2025 8:09 AM EDT [facility] Blood PERIPHERAL BLOOD SPECIMEN / Unknown Venipuncture / Unknown 05/26/2025 7:16 AM EDT 05/26/2025 7:31 AM EDT Rabia Velasco MD LAB BLOOD ORDERABLES Final Resul t [facility] [address] [place] [address], * (ABNORMAL) Basic Metabolic Panel (05/26/2025 7:16 AM EDT) Pathologist [facility] Sodium 145 135 - 147 mmol/L 05/26/2025 8:09 AM EDT [facility] Potassium 3.9 3.5 - 5.4 mmol/L 05/26/2025 8:09 AM EDT [facility] Chloride 106 96 - 108 mmol/L 05/26/2025 8:09 AM EDT [facility] Total CO2/Bicarbonat e 28 22 - 32 mmol/L 05/26/2025 8:09 AM EDT [facility] Anion Gap 11 10 - 18 mmol/L 05/26/2025 8:09 AM EDT [facility] BUN 34(H) 6 - 20 mg/dL 05/26/2025 8:09 AM EDT [facility] Creatinine, Blood 0.90 0.50 - 1.20 mg/dL 05/26/2025 8:09 AM EDT [facility] Glucose, Blood 104(H) 70 - 100 mg/dL 05/26/2025 8:09 AM EDT [facility] Calcium 8.9 8.4 - 10.3 mg/dL 05/26/2025 8:09 AM EDT [facility] Blood PERIPHERAL BLOOD SPECIMEN / Unknown Venipuncture / Unknown 05/26/2025 7:16 AM EDT 05/26/2025 7:31 AM EDT us Rabia Velasco MD LAB BLOOD ORDERABLES Final Resul t [facility] [address] [place] [address], * (ABNORMAL) CBC and Differential (05/26/2025 7:16 AM EDT) WBC 10.78(H) 4.00 - 10.00 K/uL 05/26/2025 9:11 AM EDT [facility] RBC 3.77(L) 4.60 - 6.10 M/uL 05/26/2025 9:11 AM EDT [facility] Hemoglobin 11.6(L) 13.7 - 17.5 g/dL 05/26/2025 9:11 AM EDT [facility] Hematocrit 35.9(L) 40.0 - 51.0 % 05/26/2025 9:11 AM EDT [facility] MCV 95 82 - 98 fL 05/26/2025 9:11 AM EDT [facility] MCH 30.8 26.0 - 32.0 pg 05/26/2025 9:11 AM EDT [facility] MCHC 32.3 32.0 - 37.0 g/dL 05/26/2025 9:11 AM EDT [facility] RDW 13.1 10.5 - 15.5 % 05/26/2025 9:11 AM EDT [facility] RDW-SD 45.7 35.1 - 46.3 fL 05/26/2025 9:11 AM EDT [facility] Platelet Count 288 150 - 400 K/uL 05/26/2025 9:11 AM EDT [facility] Nucleated RBC 0 <=0 #/100 WBC 05/26/2025 9:11 AM EDT [facility] Neutrophil 85.4(H) 34.0 - 71.0 % 05/26/2025 9:11 AM EDT [facility] Lymphocyte 6.7(L) 19.0 - 53.0 % 05/26/2025 9:11 AM EDT [facility] Monocyte 6.9 5.0 - 13.0 % 05/26/2025 9:11 AM EDT [facility] Eosinophil 0.0(L) 1.0 - 7.0 % 05/26/2025 9:11 AM EDT [facility] Basophil 0.2 0.0 - 1.0 % 05/26/2025 9:11 AM EDT [facility] Immature Granulocyte ([place], Myelo, Promyelocyte) 0.8(H) 0.0 - 0.6 % 05/26/2025 9:11 AM EDT [facility] Absolute Neutrophil Count 9.21(H) 1.60 - 6.10 K/uL 05/26/2025 9:11 AM EDT [facility] Absolute Lymphocyte Count 0.72(L) 1.20 - 3.70 K/uL 05/26/2025 9:11 AM EDT [facility] Absolute Monocyte Count 0.74 0.20 - 0.80 K/uL 05/26/2025 9:11 AM EDT [facility] Absolute Eosinophil Count 0.00(L) 0.04 - 0.54 K/uL 05/26/2025 9:11 AM EDT [facility] Absolute Basophil Count 0.02 0.01 - 0.08 K/uL 05/26/2025 9:11 AM EDT [facility] Absolute Immature Granulocyte ([place], Myelo, Promyelocyte) 0.09 0.00 - 0.09 K/uL 05/26/2025 9:11 AM EDT [facility] Blood PERIPHERAL BLOOD SPECIMEN / Unknown Venipuncture / Unknown 05/26/2025 7:16 AM EDT 05/26/2025 7:31 AM EDT us Rabia Velasco MD LAB BLOOD ORDERABLES Final Resul t [facility] [address] [place] [address], * (ABNORMAL) Hepatic Function Panel (05/26/2025 7:16 AM EDT) Total Protein 6.3(L) 6.4 - 8.3 g/dL 05/26/2025 8:09 AM EDT [facility] Albumin, Blood 2.9(L) 3.5 - 5.2 g/dL 05/26/2025 8:09 AM EDT [facility] Globulin Result 3.4 2.0 - 4.0 g/dL 05/26/2025 8:09 AM EDT [facility] Total Bilirubin 0.3 0.0 - 1.5 mg/dL 05/26/2025 8:09 AM EDT [facility] Direct Bilirubin 0.1 0.0 - 0.3 mg/dL 05/26/2025 8:09 AM EDT [facility] Alkaline Phosphatase 124 40 - 130 U/L 05/26/2025 8:09 AM EDT [facility] AST (SGOT) 18 0 - 40 U/L 05/26/2025 8:09 AM EDT [facility] ALT (SGPT) 9 0 - 40 U/L 05/26/2025 8:09 AM EDT [facility] Blood PERIPHERAL BLOOD SPECIMEN / Unknown Venipuncture / Unknown 05/26/2025 7:16 AM EDT 05/26/2025 7:31 AM EDT us Rabia Velasco MD LAB BLOOD ORDERABLES Final Resul t [facility] [address] [place] [address], * RBC WBC PLT Morphology (05/25/2025 12:28 PM EDT) Platelet Est Normal Normal 05/25/2025 1:51 PM EDT [facility] ANISOCYTOSIS 1+ 05/25/2025 1:51 PM EDT [facility] Microcytosis 1+ 05/25/2025 1:51 PM EDT [facility] Poikilocytosis 1+ 05/25/2025 1:51 PM EDT [facility] TEAR DROP CELLS 1+ 1:51 PM EDT [facility] Blood PERIPHERAL BLOOD SPECIMEN / Unknown Venipuncture / Unknown 05/25/2025 12:28 PM EDT 05/25/2025 12:32 PM EDT us Rabia Velasco MD LAB BLOOD ORDERABLES Final Resul t [facility] [address] [place] [address], [place] * (ABNORMAL) CBC and Differential (05/25/2025 12:28 PM EDT) WBC 13.75(H) 4.00 - 10.00 K/uL 05/25/2025 1:51 PM EDT [facility] RBC 3.87(L) 4.60 - 6.10 M/uL 05/25/2025 1:51 PM EDT [facility] Hemoglobin 11.9(L) 13.7 - 17.5 g/dL 05/25/2025 1:51 PM EDT [facility] Hematocrit 36.6(L) 40.0 - 51.0 % 05/25/2025 1:51 PM EDT [facility] MCV 95 82 - 98 fL 05/25/2025 1:51 PM EDT [facility] MCH 30.7 26.0 - 32.0 pg 05/25/2025 1:51 PM EDT [facility] MCHC 32.5 32.0 - 37.0 g/dL 05/25/2025 1:51 PM EDT [facility] RDW 12.9 10.5 - 15.5 % 05/25/2025 1:51 PM EDT [facility] RDW-SD 44.5 35.1 - 46.3 fL 05/25/2025 1:51 PM EDT [facility] Platelet Count 272 150 - 400 K/uL 05/25/2025 1:51 PM EDT [facility] Nucleated RBC 0 <=0 #/100 WBC 05/25/2025 1:51 PM EDT [facility] Neutrophil 85.0(H) 34.0 - 71.0 % 05/25/2025 1:51 PM EDT [facility] Lymphocyte 6.6(L) 19.0 - 53.0 % 05/25/2025 1:51 PM EDT [facility] Monocyte 7.3 5.0 - 13.0 % 05/25/2025 1:51 PM EDT [facility] Eosinophil 0.1(L) 1.0 - 7.0 % 05/25/2025 1:51 PM EDT [facility] Basophil 0.3 0.0 - 1.0 % 05/25/2025 1:51 PM EDT [facility] Immature Granulocyte ([place], Myelo, Promyelocyte) 0.7(H) 0.0 - 0.6 % 05/25/2025 1:51 PM EDT [facility] Absolute Neutrophil Count 11.69(H) 1.60 - 6.10 K/uL 05/25/2025 1:51 PM EDT [facility] Absolute Lymphocyte Count 0.91(L) 1.20 - 3.70 K/uL 05/25/2025 1:51 PM EDT [facility] Absolute Monocyte Count 1.00(H) 0.20 - 0.80 K/uL 05/25/2025 1:51 PM EDT [facility] Absolute Eosinophil Count 0.02(L) 0.04 - 0.54 K/uL 05/25/2025 1:51 PM EDT [facility] Absolute Basophil Count 0.04 0.01 - 0.08 K/uL 05/25/2025 1:51 PM EDT [facility] Absolute Immature Granulocyte ([place], Myelo, Promyelocyte) 0.09 0.00 - 0.09 K/uL 05/25/2025 1:51 PM EDT [facility] Blood PERIPHERAL BLOOD SPECIMEN / Unknown Venipuncture / Unknown 05/25/2025 12:28 PM EDT 05/25/2025 12:32 PM EDT us Rabia Velasco MD LAB BLOOD ORDERABLES Final Resul t [facility] [address] [place] [address], * ECG 12 lead (05/25/2025 12:17 PM EDT) Ventricular Heart Rate 111 BPM EKG [facility] Atrial Heart Rate 111 BPM EKG [facility] [place] Interval 128 ms EKG [facility] QRSD Interval 100 ms EKG [facility] QT Interval 374 ms EKG [facility] QTC Interval 508 ms EKG [facility] P [place] 50 degrees EKG [facility] R [place] -25 degrees EKG [facility] T Wave [place] 53 degrees EKG [facility] 05/25/2025 12:1 [...] 21-May-2025 12:53, No significant change was found Rabia Velasco MD ECG ORDERABLES Final Result EKG [facility] [address] [place] [id number] * (ABNORMAL) Renal Function Panel (05/25/2025 7:32 AM EDT) Sodium 144 135 - 147 mmol/L 05/25/2025 8:37 AM EDT [facility] Potassium 3.9 3.5 - 5.4 mmol/L 05/25/2025 8:37 AM EDT [facility] Chloride 104 96 - 108 mmol/L 05/25/2025 8:37 AM EDT [facility] Total CO2/Bicarbonate 29 22 - 32 mmol/L 05/25/2025 8:37 AM EDT [facility] Anion Gap 11 10 - 18 mmol/L 05/25/2025 8:37 AM EDT [facility] BUN 31(H) 6 - 20 mg/dL 05/25/2025 8:37 AM EDT [facility] Creatinine, Blood 1.10 0.50 - 1.20 mg/dL 05/25/2025 8:37 AM EDT [facility] Glucose, Blood 200(H) 70 - 100 mg/dL 05/25/2025 8:37 AM EDT [facility] Calcium 8.7 8.4 - 10.3 mg/dL 05/25/2025 8:37 AM EDT [facility] Albumin, Blood 3.0(L) 3.5 - 5.2 g/dL 05/25/2025 8:37 AM EDT [facility] Phosphorus 2.8 2.7 - 4.5 mg/dL 05/25/2025 8:37 AM EDT [facility] Magnesium, Blood 2.5 1.6 - 2.6 mg/dL 05/25/2025 8:37 AM EDT [facility] Blood PERIPHERAL BLOOD SPECIMEN / Unknown Venipuncture / Unknown 05/25/2025 7:32 AM EDT 05/25/2025 7:55 AM EDT us Imelda Xie MD LAB BLOOD ORDERABLES Final Res ult [facility] [address] [place] [address], [place] * (ABNORMAL) Valproic Acid Level (05/25/2025 7:32 AM EDT) Valproic Acid Level, Blood 33(L) 50 - 100 ug/mL 05/25/2025 8:37 AM EDT [facility] Blood PERIPHERAL BLOOD SPECIMEN / Unknown Venipuncture / Unknown 05/25/2025 7:32 AM EDT 05/25/2025 7:55 AM EDT Rabia Velasco MD LAB BLOOD ORDERABLES Final Resul t [facility] [address] [place] [address], [place] * Urine Micro Hold (05/25/2025 5:11 AM EDT) Micro Urine Reflex Hold Received 05/25/2025 8:01 AM EDT [facility] AP Urine MID-STREAM URINE SPECIMEN / Unknown Collection / Unknown 05/25/2025 5:11 AM EDT 05/25/2025 5:15 AM EDT Rabia Velasco MD URINE ORDERABLES Final Result [facility] AP [address] [place] [address], [place] * (ABNORMAL) Urinalysis with Reflex to Urine Culture (05/25/2025 5:11 AM EDT) Color, Urine Yellow Yellow, Colorless, Straw 05/25/2025 5:41 AM EDT [facility] Clarity, Urine Clear Clear 05/25/2025 5:41 AM EDT [facility] pH, Urine 7.5 5.0 - 8.0 05/25/2025 5:41 AM EDT [facility] Protein, Urine 50 mg/dL(A) Negative 05/25/2025 5:41 AM EDT [facility] Glucose, Urine Negative Negative 05/25/2025 5:41 AM EDT [facility] Ketone, Urine Negative Negative 05/25/2025 5:41 AM EDT [facility] Bilirubin, Urine Negative Negative 05/25/2025 5:41 AM EDT [facility] Urobilinogen, Urine Normal 0.2-1.0 mg/dL 05/25/2025 5:41 AM EDT [facility] Blood, Urine Negative Negative 05/25/2025 5:41 AM EDT [facility] Leukocyte Esterase, Urine Negative Negative 05/25/2025 5:41 AM EDT [facility] Nitrite, Urine Negative Negative 05/25/2025 5:41 AM EDT [facility] Specific [place], Urine 1.029 1.001 - 1.050 05/25/2025 5:41 AM EDT [facility] White Blood Cells, Urine <1 0 - 5 /hpf 05/25/2025 5:41 AM EDT [facility] Red Blood Cells, Urine 2 0 - 2 /hpf 05/25/2025 5:41 AM EDT [facility] Urine MID-STREAM URINE SPECIMEN / Unknown Collection / Unknown 05/25/2025 5:11 AM EDT 05/25/2025 5:15 AM EDT us Rabia Velasco MD URINE ORDERABLES Final Result [facility] [address] [place] [address], [place] * Culture, Blood (05/24/2025 6:58 PM EDT) Culture No growth after 5 days STEPHEN 05/29/2025 9:02 PM EDT [facility] Blood PERIPHERAL BLOOD SPECIMEN / Unknown Venipuncture / Unknown 05/24/2025 6:58 PM EDT 05/24/2025 7:02 PM EDT us Rabia Velasco MD MICROBIOLOGY - GENERAL ORDERABLE S Final Result [facility] [address] [place] [address], [place] * XR Chest 1 VW Portable [...] electronically signed on May 24 2025 11:22AM Rabia Velasco MD IMG DIAGNOSTIC IMAGING ORDERABLE S Final Result * (ABNORMAL) Coronavirus SARS-CoV-2, Influenza A/B and RSV (05/24/2025 10:28 AM EDT) Coronavirus SARS-CoV-2 Positive(A) Negative 05/24/2025 11:10 AM EDT [facility] Influenza A Negative Not Detected by PCR 05/24/2025 11:10 AM EDT [facility] Influenza B Negative Not Detected by PCR 05/24/2025 11:10 AM EDT [facility] RSV by PCR Negative Not Detected by PCR 05/24/2025 11:10 AM EDT [facility] Respiratory SWAB OF INTERNAL NOSE / Unknown Collection / Unknown 05/24/2025 10:28 AM EDT 05/24/2025 10:29 AM EDT Narrative [facility] - 05/24/2025 11:10 AM EDT Test performed by GeneXpert real-time PCR. Rabia Velasco MD BODY FLUIDS AND STOOLS ORDERABLE S Final Result [facility] [address] [place] [address], * (ABNORMAL) CBC and Differential (05/24/2025 6:28 AM EDT) WBC 11.29(H) 4.00 - 10.00 K/uL 05/24/2025 7:57 AM EDT [facility] RBC 4.35(L) 4.60 - 6.10 M/uL 05/24/2025 7:57 AM EDT [facility] Hemoglobin 13.5(L) 13.7 - 17.5 g/dL 05/24/2025 7:57 AM EDT [facility] Hematocrit 42.2 40.0 - 51.0 % 05/24/2025 7:57 AM [facility] MCV 97 82 - 98 fL 05/24/2025 7:57 AM [facility] MCH 31.0 26.0 - 32.0 pg 05/24/2025 7:57 AM [facility] MCHC 32.0 32.0 - 37.0 g/dL 05/24/2025 7:57 AM [facility] RDW 13.0 10.5 - 15.5 % 05/24/2025 7:57 AM [facility] RDW-SD 46.5(H) 35.1 - 46.3 fL 05/24/2025 7:57 AM [facility] Platelet Count 255 150 - 400 K/uL 05/24/2025 7:57 AM [facility] Nucleated RBC 0 <=0 #/100 WBC 05/24/2025 7:57 AM [facility] Neutrophil 80.7(H) 34.0 - 71.0 % 05/24/2025 7:57 AM [facility] Lymphocyte 7.5(L) 19.0 - 53.0 % 05/24/2025 7:57 AM [facility] Monocyte 11.0 5.0 - 13.0 % 05/24/2025 7:57 AM [facility] Eosinophil 0.0(L) 1.0 - 7.0 % 05/24/2025 7:57 AM [facility] Basophil 0.4 0.0 - 1.0 % 05/24/2025 7:57 AM [facility] Immature Granulocyte ([place], Myelo, Promyelocyte) 0.4 0.0 - 0.6 % 05/24/2025 7:57 AM [facility] Absolute Neutrophil Count 9.12(H) 1.60 - 6.10 K/uL 05/24/2025 7:57 AM [facility] Absolute Lymphocyte Count 0.85(L) 1.20 - 3.70 K/uL 05/24/2025 7:57 AM [facility] Absolute Monocyte Count 1.24(H) 0.20 - 0.80 K/uL 05/24/2025 7:57 AM [facility] Absolute Eosinophil Count 0.00(L) 0.04 - 0.54 K/uL 05/24/2025 7:57 AM EDT [facility] Absolute Basophil Count 0.04 0.01 - 0.08 K/uL 05/24/2025 7:57 AM EDT [facility] Absolute Immature Granulocyte ([place], Myelo, Promyelocyte) 0.04 0.00 - 0.09 K/uL 05/24/2025 7:57 AM EDT [facility] Blood PERIPHERAL BLOOD SPECIMEN / Unknown Venipuncture / Unknown 05/24/2025 6:28 AM EDT 05/24/2025 6:53 AM EDT us Rabia Velasco MD LAB BLOOD ORDERABLES Final Resul t Performing Organization Address City/[facility]/ZIP Co de Phone Number [facility] [address] [place] [address], [place] * (ABNORMAL) Phosphorus (05/24/2025 6:27 AM EDT) Phosphorus 2.1(L) 2.7 - 4.5 mg/dL 05/24/2025 7:22 AM EDT [facility] Blood PERIPHERAL BLOOD SPECIMEN / Unknown Venipuncture / Unknown 05/24/2025 6:27 AM EDT 05/24/2025 6:49 AM EDT us Rabia Velasco MD LAB BLOOD ORDERABLES Final Resul t [facility] [address] [place] [id number], [place] * Magnesium (05/24/2025 6:27 AM EDT) Magnesium, Blood 2.5 1.6 - 2.6 mg/dL 05/24/2025 7:22 AM EDT [facility] Blood PERIPHERAL BLOOD SPECIMEN / Unknown Venipuncture / Unknown 05/24/2025 6:27 AM EDT 05/24/2025 6:49 AM EDT Rabia Velasco MD LAB BLOOD ORDERABLES Final Resul t [facility] [address] [place] [address], [place] * (ABNORMAL) Basic Metabolic Panel (05/24/2025 6:27 AM EDT) Sodium 141 135 - 147 mmol/L 05/24/2025 7:22 AM EDT [facility] Potassium 4.0 3.5 - 5.4 mmol/L 05/24/2025 7:22 AM EDT [facility] Chloride 104 96 - 108 mmol/L 05/24/2025 7:22 AM EDT [facility] Total CO2/Bicarbonat e 24 22 - 32 mmol/L 05/24/2025 7:22 AM EDT [facility] Anion Gap 13 10 - 18 mmol/L 05/24/2025 7:22 AM EDT [facility] BUN 25(H) 6 - 20 mg/dL 05/24/2025 7:22 AM EDT [facility] Creatinine, Blood 1.10 0.50 - 1.20 mg/dL 05/24/2025 7:22 AM EDT [facility] Glucose, Blood 185(H) 70 - 100 mg/dL 05/24/2025 7:22 AM EDT [facility] Calcium 9.0 8.4 - 10.3 mg/dL 05/24/2025 7:22 AM EDT [facility] Estimated GFR(CKD-EPI) 74 mL/min/BSA 05/24/2025 7:22 AM EDT [facility] Blood PERIPHERAL BLOOD SPECIMEN / Unknown Venipuncture / Unknown 05/24/2025 6:27 AM EDT 05/24/2025 6:49 AM EDT us Rabia Velasco MD LAB BLOOD ORDERABLES Final Resul t [facility] [address] [place] [address], [place] * (ABNORMAL) Hepatic Function Panel (05/24/2025 6:27 AM EDT) Total Protein 6.5 6.4 - 8.3 g/dL 05/24/2025 7:22 AM EDT [facility] Albumin, Blood 3.1(L) 3.5 - 5.2 g/dL 05/24/2025 7:22 AM EDT [facility] Globulin Result 3.4 2.0 - 4.0 g/dL 05/24/2025 7:22 AM EDT [facility] Total Bilirubin 0.5 0.0 - 1.5 mg/dL 05/24/2025 7:22 AM EDT [facility] Direct Bilirubin 0.1 0.0 - 0.3 mg/dL 05/24/2025 7:22 AM EDT [facility] Alkaline Phosphatase 147(H) 40 - 130 U/L 05/24/2025 7:22 AM EDT [facility] AST (SGOT) 22 0 - 40 U/L 05/24/2025 7:22 AM EDT [facility] ALT (SGPT) 8 0 - 40 U/L 05/24/2025 7:22 AM EDT [facility] Blood PERIPHERAL BLOOD SPECIMEN / Unknown Venipuncture / Unknown 05/24/2025 6:27 AM EDT 05/24/2025 6:49 AM EDT us Rabia Velasco MD LAB BLOOD ORDERABLES Final Resul t [facility] [address] [place] [address], [place] * XR Chest 1 VW Portable [...] electronically signed on May 22 2025 01:37PM us Imelda Xie MD IMG DIAGNOSTIC IMAGING ORDERAB LES Final Result * (ABNORMAL) CBC and Differential (05/22/2025 7:01 AM EDT) WBC 12.19(H) 4.00 - 10.00 K/uL 05/22/2025 7:39 AM EDT [facility] RBC 4.28(L) 4.60 - 6.10 M/uL 05/22/2025 7:39 AM EDT [facility] Hemoglobin 13.3(L) 13.7 - 17.5 g/dL 05/22/2025 7:39 AM EDT [facility] Hematocrit 41.1 40.0 - 51.0 % 05/22/2025 7:39 AM EDT [facility] MCV 96 82 - 98 fL 05/22/2025 7:39 AM EDT [facility] MCH 31.1 26.0 - 32.0 pg 05/22/2025 7:39 AM EDT [facility] MCHC 32.4 32.0 - 37.0 g/dL 05/22/2025 7:39 AM EDT [facility] RDW 12.8 10.5 - 15.5 % 05/22/2025 7:39 AM EDT [facility] RDW-SD 45.0 35.1 - 46.3 fL 05/22/2025 7:39 AM EDT [facility] Platelet Count 272 150 - 400 K/uL 05/22/2025 7:39 AM [facility] Nucleated RBC 0 <=0 #/100 WBC 05/22/2025 7:39 AM [facility] Neutrophil 82.1(H) 34.0 - 71.0 % 05/22/2025 7:39 AM [facility] Lymphocyte 8.0(L) 19.0 - 53.0 % 05/22/2025 7:39 AM [facility] Monocyte 8.9 5.0 - 13.0 % 05/22/2025 7:39 AM [facility] Eosinophil 0.0(L) 1.0 - 7.0 % 05/22/2025 7:39 AM [facility] Basophil 0.3 0.0 - 1.0 % 05/22/2025 7:39 AM [facility] Immature Granulocyte ([place], Myelo, Promyelocyte) 0.7(H) 0.0 - 0.6 % 05/22/2025 7:39 AM [facility] Absolute Neutrophil Count 10.00(H) 1.60 - 6.10 K/uL 05/22/2025 7:39 AM [facility] Absolute Lymphocyte Count 0.97(L) 1.20 - 3.70 K/uL 05/22/2025 7:39 AM [facility] Absolute Monocyte Count 1.09(H) 0.20 - 0.80 K/uL 05/22/2025 7:39 AM [facility] Absolute Eosinophil Count 0.00(L) 0.04 - 0.54 K/uL 05/22/2025 7:39 AM [facility] Absolute Basophil Count 0.04 0.01 - 0.08 K/uL 05/22/2025 7:39 AM [facility] Absolute Immature Granulocyte ([place], Myelo, Promyelocyte) 0.09 0.00 - 0.09 K/uL 05/22/2025 7:39 AM [facility] Blood PERIPHERAL BLOOD SPECIMEN / Unknown Venipuncture / Unknown 05/22/2025 7:01 AM EDT 05/22/2025 7:20 AM EDT us Bonifacio Agudelo MD LAB BLOOD ORDERABLES Final Resul t [facility] [address] [place] [address], [place] * ECG 12 lead (05/21/2025 12:55 PM EDT) Ventricular Heart Rate 95 BPM EKG [facility] Atrial Heart Rate 95 BPM EKG [facility] [place] Interval 140 ms EKG [facility] QRSD Interval 106 ms EKG [facility] QT Interval 404 ms EKG [facility] QTC Interval 507 ms EKG [facility] P [place] 58 degrees EKG [facility] R [place] -35 degrees EKG [facility] T Wave [place] 44 degrees EKG [facility] MUSE 05/21/2025 12:5 [...] Imelda Xie MD ECG ORDERABLES Final Result EKG [facility] [address] [place] [id number] * ECG 12 lead (05/19/2025 11:42 AM EDT) Ventricular Heart Rate 101 BPM EKG [facility] Atrial Heart Rate 101 BPM EKG [facility] [place] Interval 150 ms EKG [facility] QRSD Interval 100 ms EKG [facility] QT Interval 386 ms EKG [facility] QTC Interval 500 ms EKG [facility] P [place] 35 degrees EKG [facility] MUSE R [place] -33 degrees EKG [facility] MUSE T Wave [place] 48 degrees EKG [facility] MUSE 05/19/2025 11:4 [...] ECG ORDERABLES Final Result Performing Organization Address City/[facility]/ZIP Co de Phone Number EKG [facility] [address] [place] [address] * (ABNORMAL) POCT Glucose (05/16/2025 12:26 PM EDT) [facility] Glucose, POC 127(H) 70 - 100 mg/dL 05/16/2025 12:26 PM EDT [facility] Comment: @Serial Kisxdt=[id number] @Appointment Scheduler AM=[id number] Blood 05/16/2025 12:2 6 PM EDT 05/16/2025 12:26 PM EDT us Mohinder Johnson MD POCT ORDERABLES - DEVICE Final Result Performing Organization Address City/[facility]/ZIP Co de Phone Number [facility] [address] [place] [address], [place] * (ABNORMAL) CBC and Differential (05/15/2025 6:56 AM EDT) WBC 11.50(H) 4.00 - 10.00 K/uL 05/15/2025 8:16 AM EDT [facility] RBC 4.06(L) 4.60 - 6.10 M/uL 05/15/2025 8:16 AM EDT [facility] Hemoglobin 12.7(L) 13.7 - 17.5 g/dL 05/15/2025 8:16 AM EDT [facility] Hematocrit 39.2(L) 40.0 - 51.0 % 05/15/2025 8:16 AM EDT [facility] MCV 97 82 - 98 fL 05/15/2025 8:16 AM EDT [facility] MCH 31.3 26.0 - 32.0 pg 05/15/2025 8:16 AM EDT [facility] MCHC 32.4 32.0 - 37.0 g/dL 05/15/2025 8:16 AM EDT [facility] RDW 12.7 10.5 - 15.5 % 05/15/2025 8:16 AM T [facility] RDW-SD 45.1 35.1 - 46.3 fL 05/15/2025 8:16 AM EDT [facility] Platelet Count 277 150 - 400 K/uL 05/15/2025 8:16 AM EDT [facility] Nucleated RBC 0 <=0 #/100 WBC 05/15/2025 8:16 AM T [facility] Neutrophil 79.8(H) 34.0 - 71.0 % 05/15/2025 8:16 AM EDT [facility] Lymphocyte 11.4(L) 19.0 - 53.0 % 05/15/2025 8:16 AM EDT [facility] Monocyte 7.5 5.0 - 13.0 % 05/15/2025 8:16 AM EDT [facility] Eosinophil 0.0(L) 1.0 - 7.0 % 05/15/2025 8:16 AM EDT [facility] Basophil 0.4 0.0 - 1.0 % 05/15/2025 8:16 AM EDT [facility] Immature Granulocyte ([place], Myelo, Promyelocyte) 0.9(H) 0.0 - 0.6 % 05/15/2025 8:16 AM EDT [facility] Absolute Neutrophil Count 9.18(H) 1.60 - 6.10 K/uL 05/15/2025 8:16 AM EDT [facility] Absolute Lymphocyte Count 1.31 1.20 - 3.70 K/uL 05/15/2025 8:16 AM EDT [facility] Absolute Monocyte Count 0.86(H) 0.20 - 0.80 K/uL 05/15/2025 8:16 AM EDT [facility] Absolute Eosinophil Count 0.00(L) 0.04 - 0.54 K/uL 05/15/2025 8:16 AM EDT [facility] Absolute Basophil Count 0.05 0.01 - 0.08 K/uL 05/15/2025 8:16 AM EDT [facility] Absolute Immature Granulocyte ([place], Myelo, Promyelocyte) 0.10(H) 0.00 - 0.09 K/uL 05/15/2025 8:16 AM EDT [facility] Blood PERIPHERAL BLOOD SPECIMEN / Unknown Venipuncture / Unknown 05/15/2025 6:56 AM EDT 05/15/2025 7:20 AM EDT us Bonifacio Agudelo MD LAB BLOOD ORDERABLES Final Resul t [facility] [address] [place] [address], [place] * (ABNORMAL) CBC and Differential (05/14/2025 3:40 PM EDT) WBC 8.40 4.00 - 10.00 K/uL 05/14/2025 3:57 PM EDT [facility] RBC 3.99(L) 4.60 - 6.10 M/uL 05/14/2025 3:57 PM EDT [facility] Hemoglobin 12.4(L) 13.7 - 17.5 g/dL 05/14/2025 3:57 PM EDT [facility] Hematocrit 38.4(L) 40.0 - 51.0 % 05/14/2025 3:57 PM T [facility] MCV 96 82 - 98 fL 05/14/2025 3:57 PM T [facility] MCH 31.1 26.0 - 32.0 pg 05/14/2025 3:57 PM [facility] MCHC 32.3 32.0 - 37.0 g/dL 05/14/2025 3:57 PM T [facility] RDW 12.5 10.5 - 15.5 % 05/14/2025 3:57 PM [facility] RDW-SD 44.4 35.1 - 46.3 fL 05/14/2025 3:57 PM T [facility] Platelet Count 279 150 - 400 K/uL 05/14/2025 3:57 PM [facility] Nucleated RBC 0 <=0 #/100 WBC 05/14/2025 3:57 PM T [facility] Neutrophil 75.8(H) 34.0 - 71.0 % 05/14/2025 3:57 PM [facility] Lymphocyte 15.1(L) 19.0 - 53.0 % 05/14/2025 3:57 PM T [facility] Monocyte 7.5 5.0 - 13.0 % 05/14/2025 3:57 PM [facility] Eosinophil 0.0(L) 1.0 - 7.0 % 05/14/2025 3:57 PM T [facility] Basophil 0.5 0.0 - 1.0 % 05/14/2025 3:57 PM T [facility] Immature Granulocyte ([place], Myelo, Promyelocyte) 1.1(H) 0.0 - 0.6 % 05/14/2025 3:57 PM T [facility] Absolute Neutrophil Count 6.37(H) 1.60 - 6.10 K/uL 05/14/2025 3:57 PM [facility] Absolute Lymphocyte Count 1.27 1.20 - 3.70 K/uL 05/14/2025 3:57 PM T [facility] Absolute Monocyte Count 0.63 0.20 - 0.80 K/uL 05/14/2025 3:57 PM EDT [facility] Absolute Eosinophil Count 0.00(L) 0.04 - 0.54 K/uL 05/14/2025 3:57 PM EDT [facility] Absolute Basophil Count 0.04 0.01 - 0.08 K/uL 05/14/2025 3:57 PM EDT [facility] Absolute Immature Granulocyte ([place], Myelo, Promyelocyte) 0.09 0.00 - 0.09 K/uL 05/14/2025 3:57 PM EDT [facility] Blood PERIPHERAL BLOOD SPECIMEN / Unknown Venipuncture / Unknown 05/14/2025 3:40 PM EDT 05/14/2025 3:47 PM EDT us Mohinder Johnson MD LAB BLOOD ORDERABLES Final Res ult [facility] [address] [place] [address], [place] * (ABNORMAL) Renal Function Panel (05/14/2025 3:40 PM EDT) Sodium 142 135 - 147 mmol/L 05/14/2025 4:23 PM EDT [facility] Potassium 4.1 3.5 - 5.4 mmol/L 05/14/2025 4:23 PM EDT [facility] Chloride 105 96 - 108 mmol/L 05/14/2025 4:23 PM EDT [facility] Total CO2/Bicarbonate 27 22 - 32 mmol/L 05/14/2025 4:23 PM EDT [facility] Anion Gap 10 10 - 18 mmol/L 05/14/2025 4:23 PM EDT [facility] BUN 30(H) 6 - 20 mg/dL 05/14/2025 4:23 PM EDT [facility] Creatinine, Blood 1.00 0.50 - 1.20 mg/dL 05/14/2025 4:23 PM EDT [facility] Glucose, Blood 149(H) 70 - 100 mg/dL 05/14/2025 4:23 PM EDT [facility] Calcium 9.0 8.4 - 10.3 mg/dL 05/14/2025 4:23 PM EDT [facility] Albumin, Blood 3.3(L) 3.5 - 5.2 g/dL 05/14/2025 4:23 PM EDT [facility] Phosphorus 2.8 2.7 - 4.5 mg/dL 05/14/2025 4:23 PM EDT [facility] Magnesium, Blood 2.3 1.6 - 2.6 mg/dL 05/14/2025 4:23 PM EDT [facility] Estimated GFR(CKD-EPI) 82 mL/min/BSA 05/14/2025 4:23 PM EDT [facility] Blood PERIPHERAL BLOOD SPECIMEN / Unknown Venipuncture / Unknown 05/14/2025 3:40 PM EDT 05/14/2025 3:46 PM EDT us Mohinder Johnson MD LAB BLOOD ORDERABLES Final Res ult [facility] [address] [place] [address], [place] * XR Abdomen Portable (05/12/2025 6:34 [...] electronically signed on May 12 2025 06:29PM us Mohinder Johnson MD IMG DIAGNOSTIC IMAGING ORDERAB LES Final Result * IR G Tube Rescue (05/12/2025 5:00 PM EDT) Anatomical Region Laterality Modality X-Ray Angiograph y 05/14/2025 12:2 4 PM EDT Impressions 05/14/2025 12:22 PM EDT Technically successful gastrostomy tube rescue with placement of a new 16 Croatian (3 cm stoma length) gastrostomy tube. Recommend [...] draped in a sterile fashion. A 12 [place]ian Maharaj was identified in the gastrostomy tract. The balloon of the Maharaj was deflated. A stiff Glidewire was advanced through the Maharaj catheter into the stomach. The Maharaj was removed with gentle traction. A 16 Croatian low- profile 3 cm stoma gastrostomy tube was advanced over the stiff Glidewire and into the stomach. The balloon was inflated with sterile water. The gastrostomy tube was aspirated revealing gastric contents. The gastrostomy tube was then flushed sterile water. Sterile dressings were applied. Patient tolerated the procedure well. No immediate postprocedural complications. FINDINGS: Existing gastrostomy tract with 12 Croatian Maharaj. Placement of new 16 Croatian 3 cm low-profile gastrostomy tube with aspiration of gastric contents confirming appropriate position. Recommend confirmation with injection of contrast and radiograph. Procedure Note Cassandra Fernandez MD - 05/14/2025 INDICATION: G tube rescue; Additional information: 69-year-old male with recurrent aspirationoropharyngeal dysphagia [facility]. [facility]: None available. TECHNIQUE: OPERATORS: Dr. [...] draped in a sterile fashion. A 12 [place]ian Maharaj was identifiedin the gastrostomy tract. The balloon of the Maharaj was deflated. A stiff Glidewire was advanced through the Foleycatheter into the stomach. The Maharaj was removed with gentle traction. A16 Croatian low-profile 3 cm stoma gastrostomy tube was advanced over thestiff Glidewire and into the stomach. The balloon was inflated with sterile water. The gastrostomy tubewas aspirated revealing gastric contents. The gastrostomy tube was thenflushed sterile water. Sterile dressings were applied. Patient tolerated the procedure well. No immediate postproceduralcomplications. FINDINGS: Existing gastrostomy tract with 12 Croatian Maharaj. Placement of new 16 Croatian 3 cm low-profile gastrostomy tube withaspiration of [...] Heart Rate 95 BPM EKG BUR MUSE [place] Interval 154 ms EKG BUR MUSE QRSD Interval 100 ms EKG BUR MUSE QT Interval 394 ms EKG BUR MUSE QTC Interval 495 ms EKG BUR MUSE P [place] 87 degrees EKG BUR MUSE R [place] -37 degrees EKG BUR MUSE T Wave [place] 65 degrees EKG BUR MUSE 05/11/2025 11:3 [...] of 10-May-2025 12:40, (Unconfirmed) no significant change Mohinder Johnson MD ECG ORDERABLES Final Result EKG BUR MUSE [address] [place] [id number] * POCT Glucose (05/11/2025 11:31 PM EDT) Pathologist [facility] Glucose, POC 100 70 - 100 mg/dL 05/11/2025 11:41 PM EDT [facility] Comment: @Serial Hmcraw=[id number] @Appointment Scheduler TK=[id number] Blood 05/11/2025 11:3 1 PM EDT 05/11/2025 11:41 PM EDT us Mohinder Johnson MD POCT ORDERABLES - DEVICE Final Result [facility] [address] [place] [address], * (ABNORMAL) CBC and Differential (05/09/2025 7:24 AM EDT) Pathologist [facility] WBC 11.73(H) 4.00 - 10.00 K/uL 05/09/2025 8:03 AM EDT [facility] RBC 3.76(L) 4.60 - 6.10 M/uL 05/09/2025 8:03 AM EDT [facility] Hemoglobin 11.9(L) 13.7 - 17.5 g/dL 05/09/2025 8:03 AM EDT [facility] Hematocrit 36.1(L) 40.0 - 51.0 % 05/09/2025 8:03 AM EDT [facility] MCV 96 82 - 98 fL 05/09/2025 8:03 AM EDT [facility] MCH 31.6 26.0 - 32.0 pg 05/09/2025 8:03 AM EDT [facility] MCHC 33.0 32.0 - 37.0 g/dL 05/09/2025 8:03 AM EDT [facility] RDW 12.9 10.5 - 15.5 % 05/09/2025 8:03 AM EDT [facility] RDW-SD 44.8 35.1 - 46.3 fL 05/09/2025 8:03 AM EDT [facility] Platelet Count 262 150 - 400 K/uL 05/09/2025 8:03 AM [facility] Nucleated RBC 0 <=0 #/100 WBC 05/09/2025 8:03 AM [facility] Neutrophil 79.6(H) 34.0 - 71.0 % 05/09/2025 8:03 AM [facility] Lymphocyte 12.9(L) 19.0 - 53.0 % 05/09/2025 8:03 AM [facility] Monocyte 6.3 5.0 - 13.0 % 05/09/2025 8:03 AM [facility] Eosinophil 0.0(L) 1.0 - 7.0 % 05/09/2025 8:03 AM [facility] Basophil 0.3 0.0 - 1.0 % 05/09/2025 8:03 AM [facility] Immature Granulocyte ([place], Myelo, Promyelocyte) 0.9(H) 0.0 - 0.6 % 05/09/2025 8:03 AM [facility] Absolute Neutrophil Count 9.33(H) 1.60 - 6.10 K/uL 05/09/2025 8:03 AM [facility] Absolute Lymphocyte Count 1.51 1.20 - 3.70 K/uL 05/09/2025 8:03 AM [facility] Absolute Monocyte Count 0.74 0.20 - 0.80 K/uL 05/09/2025 8:03 AM [facility] Absolute Eosinophil Count 0.00(L) 0.04 - 0.54 K/uL 05/09/2025 8:03 AM [facility] Absolute Basophil Count 0.04 0.01 - 0.08 K/uL 05/09/2025 8:03 AM [facility] Absolute Immature Granulocyte ([place], Myelo, Promyelocyte) 0.11(H) 0.00 - 0.09 K/uL 05/09/2025 8:03 AM [facility] Blood PERIPHERAL BLOOD SPECIMEN / Unknown Venipuncture / Unknown 05/09/2025 7:24 AM EDT 05/09/2025 7:29 AM EDT us Mohinder Johnson MD LAB BLOOD ORDERABLES Final Res ult [facility] [address] [place] [address], [place] * (ABNORMAL) CBC and Differential (05/08/2025 6:53 AM EDT) WBC 12.58(H) 4.00 - 10.00 K/uL 05/08/2025 7:39 AM EDT [facility] RBC 3.83(L) 4.60 - 6.10 M/uL 05/08/2025 7:39 AM EDT [facility] Hemoglobin 11.9(L) 13.7 - 17.5 g/dL 05/08/2025 7:39 AM EDT [facility] Hematocrit 37.0(L) 40.0 - 51.0 % 05/08/2025 7:39 AM EDT [facility] MCV 97 82 - 98 fL 05/08/2025 7:39 AM EDT [facility] MCH 31.1 26.0 - 32.0 pg 05/08/2025 7:39 AM EDT [facility] MCHC 32.2 32.0 - 37.0 g/dL 05/08/2025 7:39 AM EDT [facility] RDW 12.9 10.5 - 15.5 % 05/08/2025 7:39 AM EDT [facility] RDW-SD 45.8 35.1 - 46.3 fL 05/08/2025 7:39 AM EDT [facility] Platelet Count 263 150 - 400 K/uL 05/08/2025 7:39 AM EDT [facility] Nucleated RBC 0 <=0 #/100 WBC 05/08/2025 7:39 AM EDT [facility] Neutrophil 80.4(H) 34.0 - 71.0 % 05/08/2025 7:39 AM EDT [facility] Lymphocyte 11.9(L) 19.0 - 53.0 % 05/08/2025 7:39 AM EDT [facility] Monocyte 6.5 5.0 - 13.0 % 05/08/2025 7:39 AM EDT [facility] Eosinophil 0.0(L) 1.0 - 7.0 % 05/08/2025 7:39 AM EDT [facility] Basophil 0.2 0.0 - 1.0 % 05/08/2025 7:39 AM EDT [facility] Immature Granulocyte ([place], Myelo, Promyelocyte) 1.0(H) 0.0 - 0.6 % 05/08/2025 7:39 AM EDT [facility] Absolute Neutrophil Count 10.12(H) 1.60 - 6.10 K/uL 05/08/2025 7:39 AM EDT [facility] Absolute Lymphocyte Count 1.50 1.20 - 3.70 K/uL 05/08/2025 7:39 AM EDT [facility] Absolute Monocyte Count 0.82(H) 0.20 - 0.80 K/uL 05/08/2025 7:39 AM EDT [facility] Absolute Eosinophil Count 0.00(L) 0.04 - 0.54 K/uL 05/08/2025 7:39 AM EDT [facility] Absolute Basophil Count 0.02 0.01 - 0.08 K/uL 05/08/2025 7:39 AM EDT [facility] Absolute Immature Granulocyte ([place], Myelo, Promyelocyte) 0.12(H) 0.00 - 0.09 K/uL 05/08/2025 7:39 AM EDT [facility] Blood PERIPHERAL BLOOD SPECIMEN / Unknown Venipuncture / Unknown 05/08/2025 6:53 AM EDT 05/08/2025 7:07 AM EDT us Bonifacio Agudelo MD LAB BLOOD ORDERABLES Final Resul t [facility] [address] [place] [address], [place] * XR Chest 1 VW Portable [...] Respiratory Viral, Molecular (05/07/2025 12:20 PM EDT) Coronavirus SARS-CoV-2 Negative Negative 05/07/2025 6:15 PM EDT [facility] Influenza A, PCR Negative Negative 05/07/20 6:15 PM EDT [facility] Influenza B, PCR Negative Negative 05/07/20 6:15 PM EDT [facility] RSV by PCR Negative Negative 05/07/2025 6:15 PM EDT [facility] Respiratory SWAB OF INTERNAL NOSE / Unknown Collection / Unknown 05/07/2025 12:20 PM EDT 05/07/2025 12:33 PM EDT Narrative [facility] - 05/07/2025 6:15 PM EDT Test performed with Alineftality m Resp-4-Plex PCR assay, which has received emergency use authorization (EUA) by the U.S.Food and Drug Administration. Test performance verified by [facility] [address] [facility], [place], [place]. Dr. Dunia Adames MD. CLIA [id number], CAP [id number] . us Mohinder Johnson MD BODY FLUIDS AND STOOLS ORDERAB LES Final Result [facility] [address] [place] [address], [place] [phone] * (ABNORMAL) CBC and Differential (05/07/2025 6:37 AM EDT) WBC 16.33(H) 4.00 - 10.00 K/uL 05/07/2025 7:42 AM EDT [facility] RBC 4.29(L) 4.60 - 6.10 M/uL 05/07/2025 7:42 AM EDT [facility] Hemoglobin 13.5(L) 13.7 - 17.5 g/dL 05/07/2025 7:42 AM EDT [facility] Hematocrit 41.3 40.0 - 51.0 % 05/07/2025 7:42 AM EDT [facility] MCV 96 82 - 98 fL 05/07/2025 7:42 AM EDT [facility] MCH 31.5 26.0 - 32.0 pg 05/07/2025 7:42 AM EDT [facility] MCHC 32.7 32.0 - 37.0 g/dL 05/07/2025 7:42 AM EDT [facility] RDW 13.0 10.5 - 15.5 % 05/07/2025 7:42 AM EDT [facility] RDW-SD 45.8 35.1 - 46.3 fL 05/07/2025 7:42 AM EDT [facility] Platelet Count 306 150 - 400 K/uL 05/07/2025 7:42 AM [facility] Nucleated RBC 0 <=0 #/100 WBC 05/07/2025 7:42 AM [facility] Neutrophil 84.5(H) 34.0 - 71.0 % 05/07/2025 7:42 AM [facility] Lymphocyte 7.8(L) 19.0 - 53.0 % 05/07/2025 7:42 AM [facility] Monocyte 6.4 5.0 - 13.0 % 05/07/2025 7:42 AM [facility] Eosinophil 0.1(L) 1.0 - 7.0 % 05/07/2025 7:42 AM [facility] Basophil 0.4 0.0 - 1.0 % 05/07/2025 7:42 AM [facility] Immature Granulocyte ([place], Myelo, Promyelocyte) 0.8(H) 0.0 - 0.6 % 05/07/2025 7:42 AM [facility] Absolute Neutrophil Count 13.81(H) 1.60 - 6.10 K/uL 05/07/2025 7:42 AM [facility] Absolute Lymphocyte Count 1.27 1.20 - 3.70 K/uL 05/07/2025 7:42 AM [facility] Absolute Monocyte Count 1.04(H) 0.20 - 0.80 K/uL 05/07/2025 7:42 AM [facility] Absolute Eosinophil Count 0.02(L) 0.04 - 0.54 K/uL 05/07/2025 7:42 AM [facility] Absolute Basophil Count 0.06 0.01 - 0.08 K/uL 05/07/2025 7:42 AM [facility] Absolute Immature Granulocyte ([place], Myelo, Promyelocyte) 0.13(H) 0.00 - 0.09 K/uL 05/07/2025 7:42 AM [facility] Blood PERIPHERAL BLOOD SPECIMEN / Unknown Venipuncture / Unknown 05/07/2025 6:37 AM EDT 05/07/2025 6:55 AM EDT us Mohinder Johnson MD LAB BLOOD ORDERABLES Final Res ult Performing Organization Address City/[facility]/ZIP Co de Phone Number [facility] [address] [place] [address], [place] * ECG 12 lead (05/06/2025 3:43 PM EDT) Ventricular Heart Rate 86 BPM EKG [facility] MUSE Atrial Heart Rate 86 BPM EKG B[facility] MUSE [place] Interval 152 ms EKG [facility] MUSE QRSD Interval 122 ms EKG B[facility] MUSE QT Interval 430 ms EKG [facility] M[facility] QTC Interval 514 ms EKG B[facility] MUSE P [place] 59 degrees EKG BUR MUSE R [place] -29 degrees EKG BUR MUSE T Wave [place] 41 degrees EKG BUR MUSE 05/06/2025 3:41 [...] Johnson MD ECG ORDERABLES Final Result EKG [facility] M[facility] [address] [place] [address] * (ABNORMAL) CBC and Differential (05/06/2025 3:23 PM EDT) WBC 11.93(H) 4.00 - 10.00 K/uL 05/06/2025 4:03 PM EDT [facility] RBC 3.78(L) 4.60 - 6.10 M/uL 05/06/2025 4:03 PM EDT [facility] Hemoglobin 12.0(L) 13.7 - 17.5 g/dL 05/06/2025 4:03 PM T [facility] Hematocrit 36.5(L) 40.0 - 51.0 % 05/06/2025 4:03 PM [facility] MCV 97 82 - 98 fL 05/06/2025 4:03 PM T [facility] MCH 31.7 26.0 - 32.0 pg 05/06/2025 4:03 PM T [facility] MCHC 32.9 32.0 - 37.0 g/dL 05/06/2025 4:03 PM T [facility] RDW 12.8 10.5 - 15.5 % 05/06/2025 4:03 PM [facility] RDW-SD 45.0 35.1 - 46.3 fL 05/06/2025 4:03 PM [facility] Platelet Count 294 150 - 400 K/uL 05/06/2025 4:03 PM T [facility] Nucleated RBC 0 <=0 #/100 WBC 05/06/2025 4:03 PM [facility] Neutrophil 78.0(H) 34.0 - 71.0 % 05/06/2025 4:03 PM [facility] Lymphocyte 13.7(L) 19.0 - 53.0 % 05/06/2025 4:03 PM [facility] Monocyte 6.7 5.0 - 13.0 % 05/06/2025 4:03 PM T [facility] Eosinophil 0.0(L) 1.0 - 7.0 % 05/06/2025 4:03 PM T [facility] Basophil 0.3 0.0 - 1.0 % 05/06/2025 4:03 PM [facility] Immature Granulocyte ([place], Myelo, Promyelocyte) 1.3(H) 0.0 - 0.6 % 05/06/2025 4:03 PM [facility] Absolute Neutrophil Count 9.29(H) 1.60 - 6.10 K/uL 05/06/2025 4:03 PM EDT [facility] Absolute Lymphocyte Count 1.64 1.20 - 3.70 K/uL 05/06/2025 4:03 PM EDT [facility] Absolute Monocyte Count 0.80 0.20 - 0.80 K/uL 05/06/2025 4:03 PM EDT [facility] Absolute Eosinophil Count 0.00(L) 0.04 - 0.54 K/uL 05/06/2025 4:03 PM EDT [facility] Absolute Basophil Count 0.04 0.01 - 0.08 K/uL 05/06/2025 4:03 PM EDT [facility] Absolute Immature Granulocyte ([place], Myelo, Promyelocyte) 0.16(H) 0.00 - 0.09 K/uL 05/06/2025 4:03 PM EDT [facility] Blood PERIPHERAL BLOOD SPECIMEN / Unknown Venipuncture / Unknown 05/06/2025 3:23 PM EDT 05/06/2025 3:26 PM EDT us Mohinder Johnson MD LAB BLOOD ORDERABLES Final Res ult [facility] [address] [place] [address], * (ABNORMAL) CBC and Differential (05/05/2025 6:35 AM EDT) WBC 11.60(H) 4.00 - 10.00 K/uL 05/05/2025 7:59 AM EDT [facility] RBC 3.95(L) 4.60 - 6.10 M/uL 05/05/2025 7:59 AM EDT [facility] Hemoglobin 12.5(L) 13.7 - 17.5 g/dL 05/05/2025 7:59 AM EDT [facility] Hematocrit 38.0(L) 40.0 - 51.0 % 05/05/2025 7:59 AM EDT [facility] MCV 96 82 - 98 fL 05/05/2025 7:59 AM EDT [facility] MCH 31.6 26.0 - 32.0 pg 05/05/2025 7:59 AM [facility] MCHC 32.9 32.0 - 37.0 g/dL 05/05/2025 7:59 AM [facility] RDW 12.8 10.5 - 15.5 % 05/05/2025 7:59 AM [facility] RDW-SD 45.6 35.1 - 46.3 fL 05/05/2025 7:59 AM [facility] Platelet Count 298 150 - 400 K/uL 05/05/2025 7:59 AM [facility] Nucleated RBC 0 <=0 #/100 WBC 05/05/2025 7:59 AM [facility] Neutrophil 75.0(H) 34.0 - 71.0 % 05/05/2025 7:59 AM [facility] Lymphocyte 15.4(L) 19.0 - 53.0 % 05/05/2025 7:59 AM [facility] Monocyte 7.8 5.0 - 13.0 % 05/05/2025 7:59 AM [facility] Eosinophil 0.0(L) 1.0 - 7.0 % 05/05/2025 7:59 AM [facility] Basophil 0.5 0.0 - 1.0 % 05/05/2025 7:59 AM [facility] Immature Granulocyte ([place], Myelo, Promyelocyte) 1.3(H) 0.0 - 0.6 % 05/05/2025 7:59 AM [facility] Absolute Neutrophil Count 8.69(H) 1.60 - 6.10 K/uL 05/05/2025 7:59 AM [facility] Absolute Lymphocyte Count 1.79 1.20 - 3.70 K/uL 05/05/2025 7:59 AM [facility] Absolute Monocyte Count 0.91(H) 0.20 - 0.80 K/uL 05/05/2025 7:59 AM [facility] Absolute Eosinophil Count 0.00(L) 0.04 - 0.54 K/uL 05/05/2025 7:59 AM [facility] Absolute Basophil Count 0.06 0.01 - 0.08 K/uL 05/05/2025 7:59 AM EDT [facility] Absolute Immature Granulocyte ([place], Myelo, Promyelocyte) 0.15(H) 0.00 - 0.09 K/uL 05/05/2025 7:59 AM EDT [facility] Blood PERIPHERAL BLOOD SPECIMEN / Unknown Venipuncture / Unknown 05/05/2025 6:35 AM EDT 05/05/2025 7:11 AM EDT us Mohinder Johnson MD LAB BLOOD ORDERABLES Final Res ult [facility] [address] [place] [address], [place] * XR Chest 1 VW Portable [...] on May 02 2025 05:41PM us Mildred [employer] ORDERABL ES Final Result * EEG 24 Hour Continuous Video EEG (LTM) (05/01/2025 6:30 AM EDT) Anatomical Region Laterality Modality EEG Impressions 05/04/2025 9:47 AM EDT Abnormal EEG due to - intermittent background 5-7Hz theta slowing while awake Note on seizure risk / [id number] scores: Interpretation of scores the risk of [...] <5%. Assessment of the Validity of the 4DYOJK5G Score for Inpatient Seizure Risk Prediction. DEB [...] EPILEPTIFORM DISCHARGES: None EVENTS: None ECG: Unremarkable [id number] score (on day 1 of EEG): 0 us Mildred Srinivasan MD NEUROLOGY ORDERABLES Final Resu lt * (ABNORMAL) CBC and Differential (05/01/2025 6:23 AM EDT) WBC 11.29(H) 4.00 - 10.00 K/uL 05/01/2025 7:27 AM EDT [facility] RBC 3.86(L) 4.60 - 6.10 M/uL 05/01/2025 7:27 AM EDT [facility] Hemoglobin 12.0(L) 13.7 - 17.5 g/dL 05/01/2025 7:27 AM EDT [facility] Hematocrit 36.4(L) 40.0 - 51.0 % 05/01/2025 7:27 AM EDT [facility] MCV 94 82 - 98 fL 05/01/2025 7:27 AM EDT [facility] MCH 31.1 26.0 - 32.0 pg 05/01/2025 7:27 AM EDT [facility] MCHC 33.0 32.0 - 37.0 g/dL 05/01/2025 7:27 AM EDT [facility] RDW 13.0 10.5 - 15.5 % 05/01/2025 7:27 AM EDT [facility] RDW-SD 44.9 35.1 - 46.3 fL 05/01/2025 7:27 AM EDT [facility] Platelet Count 292 150 - 400 K/uL 05/01/2025 7:27 AM EDT [facility] Nucleated RBC 0 <=0 #/100 WBC 05/01/2025 7:27 AM EDT [facility] Neutrophil 79.9(H) 34.0 - 71.0 % 05/01/2025 7:27 AM EDT [facility] Lymphocyte 11.9(L) 19.0 - 53.0 % 05/01/2025 7:27 AM EDT [facility] Monocyte 7.3 5.0 - 13.0 % 05/01/2025 7:27 AM EDT [facility] Eosinophil 0.0(L) 1.0 - 7.0 % 05/01/2025 7:27 AM EDT [facility] Basophil 0.4 0.0 - 1.0 % 05/01/2025 7:27 AM EDT [facility] Immature Granulocyte ([place], Myelo, Promyelocyte) 0.5 0.0 - 0.6 % 05/01/2025 7:27 AM EDT [facility] Absolute Neutrophil Count 9.03(H) 1.60 - 6.10 K/uL 05/01/2025 7:27 AM EDT [facility] Absolute Lymphocyte Count 1.34 1.20 - 3.70 K/uL 05/01/2025 7:27 AM EDT [facility] Absolute Monocyte Count 0.82(H) 0.20 - 0.80 K/uL 05/01/2025 7:27 AM EDT [facility] Absolute Eosinophil Count 0.00(L) 0.04 - 0.54 K/uL 05/01/2025 7:27 AM EDT [facility] Absolute Basophil Count 0.04 0.01 - 0.08 K/uL 05/01/2025 7:27 AM EDT [facility] Absolute Immature Granulocyte ([place], Myelo, Promyelocyte) 0.06 0.00 - 0.09 K/uL 05/01/2025 7:27 AM T [facility] Blood PERIPHERAL BLOOD SPECIMEN / Unknown Venipuncture / Unknown 05/01/2025 6:23 AM EDT 05/01/2025 7:12 AM EDT Bonifacio Agudelo MD LAB BLOOD ORDERABLES Final Resul t [facility] [address] [place] [address], [place] * EEG 24 Hour Continuous Video EEG (LTM) (04/30/2025 2:04 PM EDT) Anatomical Region Laterality Modality EEG Impressions 05/01/2025 9:40 AM EDT Abnormal EEG due to - intermittent background 5-7Hz theta slowing while awake Note on seizure risk / [id number] scores: Interpretation of scores the risk of [...] <5%. Assessment of the Validity of the [id number] Score for Inpatient Seizure Risk Prediction. DEB [...] EPILEPTIFORM DISCHARGES: None EVENTS: None ECG: Unremarkable [id number] score (on day 1 of EEG): 0 us Mildred Srinivasan MD NEUROLOGY ORDERABLES Final Resu lt * (ABNORMAL) Urinalysis with Sediment (04/30/2025 12:21 PM EDT) Color, Urine Yellow Yellow, Colorless, Straw 04/30/2025 12:40 PM EDT [facility] Clarity, Urine Hazy(A) Clear 04/30/2025 12:40 PM EDT [facility] pH, Urine 7.0 5.0 - 8.0 04/30/2025 12:40 PM EDT [facility] Protein, Urine Negative Negative 04/30/2025 12:40 PM EDT [facility] Glucose, Urine Negative Negative 04/30/2025 12:40 PM EDT [facility] Ketone, Urine Negative Negative 04/30/2025 12:40 PM EDT [facility] Bilirubin, Urine Negative Negative 04/30/2025 12:40 PM EDT [facility] Urobilinogen, Urine Normal 0.2-1.0 mg/dL 04/30/2025 12:40 PM EDT [facility] Blood, Urine Negative Negative 04/30/2025 12:40 PM EDT [facility] Leukocyte Esterase, Urine Negative Negative 04/30/2025 12:40 PM EDT [facility] Nitrite, Urine Negative Negative 04/30/2025 12:40 PM EDT [facility] Specific [place], Urine 1.016 1.001 - 1.050 04/30/2025 12:40 PM EDT [facility] White Blood Cells, Urine <1 0 - 5 /hpf 04/30/2025 12:40 PM EDT [facility] Red Blood Cells, Urine <1 0 - 2 /hpf 04/30/2025 12:40 PM EDT [facility] Urine MID-STREAM URINE SPECIMEN / Unknown Collection / Unknown 04/30/2025 12:21 PM EDT 04/30/2025 12:35 PM EDT us Midlred Srinivasan MD URINE ORDERABLES Final Result [facility] [address] [place] [address], [place] * XR Abdomen 1 VW (04/30/2025 [...] Heart Rate 87 BPM EKG B[facility] MUSE [place] Interval 148 ms EKG BUR MUSE QRSD Interval 116 ms EKG BUR MUSE QT Interval 426 ms EKG BUR MUSE QTC Interval 512 ms EKG BUR MUSE P [place] 50 degrees EKG BUR MUSE R [place] -32 degrees EKG BUR MUSE T Wave [place] 34 degrees EKG BUR MUSE 04/30/2025 10:1 3 AM EDT 04/30/2025 9:49 PM EDT Narrative EKG B[facility] MUSE - 04/30/2025 9:49 PM EDT Normal [...] Mildred Srinivasan MD ECG ORDERABLES Final Result EKG [facility] [address] [place] [id number] * (ABNORMAL) D-dimer (04/30/2025 10:14 AM EDT) D-Dimer 605(H) <=500 ng/mL FEU 04/30/2025 10:37 AM EDT [facility] Comment:In ambulatory patien ts with low pre-test probability (Wells Criteria); D-Dimer <500 can be used to exclude venous thomboembolic disease. Blood PERIPHERAL BLOOD SPECIMEN / Unknown Venipuncture / Unknown 04/30/2025 10:14 AM EDT 04/30/2025 10:20 AM EDT Mildred Srinivasan MD LAB BLOOD ORDERABLES Final Resu lt Performing Organization Address City/[facility]/ZIP Co de Phone Number [facility] [address] [place] [address], [place] * Phosphorus (04/30/2025 10:10 AM EDT) Phosphorus 3.0 2.7 - 4.5 mg/dL 04/30/2025 11:07 AM EDT [facility] Blood PERIPHERAL BLOOD SPECIMEN / Unknown Venipuncture / Unknown 04/30/2025 10:10 AM EDT 04/30/2025 10:20 AM EDT Mildred Srinivasan MD LAB BLOOD ORDERABLES Final Resu lt [facility] [address] [place] [address], [place] * Magnesium (04/30/2025 10:10 AM EDT) Magnesium, Blood 2.3 1.6 - 2.6 mg/dL 04/30/2025 11:07 AM EDT [facility] Blood PERIPHERAL BLOOD SPECIMEN / Unknown Venipuncture / Unknown 04/30/2025 10:10 AM EDT 04/30/2025 10:20 AM EDT Mildred Srinivasan MD LAB BLOOD ORDERABLES Final Resu lt Performing Organization Address City/[facility]/ZIP Co de Phone Number [facility] [address] [place] [address], [place] * (ABNORMAL) Basic Metabolic Panel (04/30/2025 10:10 AM EDT) Sodium 140 135 - 147 mmol/L 04/30/2025 11:07 AM EDT [facility] Potassium 4.0 3.5 - 5.4 mmol/L 04/30/2025 11:07 AM EDT [facility] Chloride 103 96 - 108 mmol/L 04/30/2025 11:07 AM EDT [facility] Total CO2/Bicarbonat e 27 22 - 32 mmol/L 04/30/2025 11:07 AM EDT [facility] Anion Gap 10 10 - 18 mmol/L 04/30/2025 11:07 AM EDT [facility] BUN 28(H) 6 - 20 mg/dL 04/30/2025 11:07 AM EDT [facility] Creatinine, Blood 0.90 0.50 - 1.20 mg/dL 04/30/2025 11:07 AM EDT [facility] Glucose, Blood 149(H) 70 - 100 mg/dL 04/30/2025 11:07 AM EDT [facility] Calcium 9.3 8.4 - 10.3 mg/dL 04/30/2025 11:07 AM EDT [facility] Estimated GFR(CKD-EPI) 94 mL/min/BSA 04/30/2025 11:07 AM EDT [facility] Blood PERIPHERAL BLOOD SPECIMEN / Unknown Venipuncture / Unknown 04/30/2025 10:10 AM EDT 04/30/2025 10:20 AM EDT Mildred Srinivasan MD LAB BLOOD ORDERABLES Final Resu lt [facility] [address] [place] [address], [place] * (ABNORMAL) Hepatic Function Panel (04/30/2025 10:10 AM EDT) Total Protein 6.1(L) 6.4 - 8.3 g/dL 04/30/2025 11:07 AM EDT [facility] Albumin, Blood 3.3(L) 3.5 - 5.2 g/dL 04/30/2025 11:07 AM EDT [facility] Globulin Result 2.8 2.0 - 4.0 g/dL 04/30/2025 11:07 AM EDT [facility] Total Bilirubin 0.3 0.0 - 1.5 mg/dL 04/30/2025 11:07 AM EDT [facility] Direct Bilirubin 0.1 0.0 - 0.3 mg/dL 04/30/2025 11:07 AM EDT [facility] Alkaline Phosphatase 153(H) 40 - 130 U/L 04/30/2025 11:07 AM EDT [facility] AST (SGOT) 18 0 - 40 U/L 04/30/2025 11:07 AM EDT [facility] ALT (SGPT) <5 0 - 40 U/L 04/30/2025 11:07 AM EDT [facility] Blood PERIPHERAL BLOOD SPECIMEN / Unknown Venipuncture / Unknown 04/30/2025 10:10 AM EDT 04/30/2025 10:20 AM EDT us Mildred Srinivasan MD LAB BLOOD ORDERABLES Final Resu lt [facility] [address] [place] [address], [place] * (ABNORMAL) CK (Creatine Kinase) (04/30/2025 10:10 AM EDT) Creatine Kinase Total (CK) 35(L) 47 - 322 U/L 04/30/2025 11:07 AM EDT [facility] Blood PERIPHERAL BLOOD SPECIMEN / Unknown Venipuncture / Unknown 04/30/2025 10:10 AM EDT 04/30/2025 10:20 AM EDT Mildred Srinivasan MD LAB BLOOD ORDERABLES Final Resu lt [facility] [address] [place] [address], [place] * Lactate Dehydrogenase, Blood (04/30/2025 10:10 AM EDT) Lactate Dehydrogenase (LDH) 192 94 - 250 U/L 04/30/2025 11:07 AM EDT [facility] Blood PERIPHERAL BLOOD SPECIMEN / Unknown Venipuncture / Unknown 04/30/2025 10:10 AM EDT 04/30/2025 10:20 AM EDT Mildred Srinivasan MD LAB BLOOD ORDERABLES Final Resu lt Performing Organization Address City/[facility]/ZIP Co de Phone Number [facility] [address] [place] [address], [place] * (ABNORMAL) CBC (04/30/2025 10:10 AM EDT) WBC 8.60 4.00 - 10.00 K/uL 04/30/2025 10:27 AM EDT [facility] RBC 4.04(L) 4.60 - 6.10 M/uL 04/30/2025 10:27 AM EDT [facility] Hemoglobin 12.7(L) 13.7 - 17.5 g/dL 04/30/2025 10:27 AM EDT [facility] Hematocrit 38.3(L) 40.0 - 51.0 % 04/30/2025 10:27 AM EDT [facility] MCV 95 82 - 98 fL 04/30/2025 10:27 AM EDT [facility] MCH 31.4 26.0 - 32.0 pg 04/30/2025 10:27 AM EDT [facility] MCHC 33.2 32.0 - 37.0 g/dL 04/30/2025 10:27 AM EDT [facility] RDW 13.0 10.5 - 15.5 % 04/30/2025 10:27 AM EDT [facility] RDW-SD 44.6 35.1 - 46.3 fL 04/30/2025 10:27 AM EDT [facility] Platelet Count 268 150 - 400 K/uL 04/30/2025 10:27 AM EDT [facility] Nucleated RBC 0 <=0 #/100 WBC 04/30/2025 10:27 AM EDT [facility] Blood PERIPHERAL BLOOD SPECIMEN / Unknown Venipuncture / Unknown 04/30/2025 10:10 AM EDT 04/30/2025 10:20 AM EDT Mildred Srinivasan MD LAB BLOOD ORDERABLES Final Resu lt Performing Organization Address [facility]/ZIP Co de Phone Number [facility] [address] [place] [address], [place] * (ABNORMAL) POCT Glucose (04/30/2025 9:42 AM EDT) Glucose, POC 143(H) 70 - 100 mg/dL 04/30/2025 9:44 AM EDT [facility] Comment: @Serial Rofcuk=[id number] @Appointment Scheduler IJ=[id number] Blood 04/30/2025 9:42 AM EDT 04/30/2025 9:44 AM EDT Mildred Srinivasan MD POCT ORDERABLES - DEVICE Final Result [facility] [address] [place] [address], [place] * ECG 12 lead (04/29/2025 11:54 AM EDT) Ventricular Heart Rate 112 BPM EKG [facility] Atrial Heart Rate 112 BPM EKG [facility] [place] Interval 156 ms EKG [facility] QRSD Interval 102 ms EKG [facility] QT Interval 358 ms EKG [facility] QTC Interval 488 ms EKG [facility] P [place] 61 degrees EKG BUR MUSE R [place] -35 degrees EKG BUR MUSE T Wave [place] 50 degrees EKG BUR MUSE 04/29/2025 10:3 [...] 22-Apr-2025 11:27, No significant change was found Mildred Srinivasan MD ECG ORDERABLES Final Result EKG KATH OSMEL [address] [place] [id number] * (ABNORMAL) CBC and Differential (04/28/2025 4:56 AM EDT) WBC 11.11(H) 4.00 - 10.00 K/uL 04/28/2025 5:23 AM EDT [facility] RBC 3.99(L) 4.60 - 6.10 M/uL 04/28/2025 5:23 AM EDT [facility] Hemoglobin 12.4(L) 13.7 - 17.5 g/dL 04/28/2025 5:23 AM EDT [facility] Hematocrit 36.6(L) 40.0 - 51.0 % 04/28/2025 5:23 AM EDT [facility] MCV 92 82 - 98 fL 04/28/2025 5:23 AM EDT [facility] MCH 31.1 26.0 - 32.0 pg 04/28/2025 5:23 AM EDT [facility] MCHC 33.9 32.0 - 37.0 g/dL 04/28/2025 5:23 AM [facility] RDW 13.1 10.5 - 15.5 % 04/28/2025 5:23 AM [facility] RDW-SD 43.9 35.1 - 46.3 fL 04/28/2025 5:23 AM [facility] Platelet Count 310 150 - 400 K/uL 04/28/2025 5:23 AM [facility] Nucleated RBC 0 <=0 #/100 WBC 04/28/2025 5:23 AM [facility] Neutrophil 74.6(H) 34.0 - 71.0 % 04/28/2025 5:23 AM [facility] Lymphocyte 13.6(L) 19.0 - 53.0 % 04/28/2025 5:23 AM [facility] Monocyte 9.5 5.0 - 13.0 % 04/28/2025 5:23 AM [facility] Eosinophil 0.0(L) 1.0 - 7.0 % 04/28/2025 5:23 AM [facility] Basophil 0.4 0.0 - 1.0 % 04/28/2025 5:23 AM [facility] Immature Granulocyte ([place], Myelo, Promyelocyte) 1.9(H) 0.0 - 0.6 % 04/28/2025 5:23 AM [facility] Absolute Neutrophil Count 8.29(H) 1.60 - 6.10 K/uL 04/28/2025 5:23 AM [facility] Absolute Lymphocyte Count 1.51 1.20 - 3.70 K/uL 04/28/2025 5:23 AM [facility] Absolute Monocyte Count 1.06(H) 0.20 - 0.80 K/uL 04/28/2025 5:23 AM [facility] Absolute Eosinophil Count 0.00(L) 0.04 - 0.54 K/uL 04/28/2025 5:23 AM [facility] Absolute Basophil Count 0.04 0.01 - 0.08 K/uL 04/28/2025 5:23 AM [facility] Absolute Immature Granulocyte ([place], Myelo, Promyelocyte) 0.21(H) 0.00 - 0.09 K/uL 04/28/2025 5:23 AM EDT [facility] Blood PERIPHERAL BLOOD SPECIMEN / Unknown Venipuncture / Unknown 04/28/2025 4:56 AM EDT 04/28/2025 5:13 AM EDT Mildred Srinivasan MD LAB BLOOD ORDERABLES Final Resu lt [facility] [address] [place] [address], [place] * (ABNORMAL) Basic Metabolic Panel (04/28/2025 4:56 AM EDT) Sodium 137 135 - 147 mmol/L 04/28/2025 5:48 AM EDT [facility] Potassium 4.1 3.5 - 5.4 mmol/L 04/28/2025 5:48 AM EDT [facility] Chloride 101 96 - 108 mmol/L 04/28/2025 5:48 AM EDT [facility] Total CO2/Bicarbonat e 25 22 - 32 mmol/L 04/28/2025 5:48 AM EDT [facility] Anion Gap 11 10 - 18 mmol/L 04/28/2025 5:48 AM EDT [facility] BUN 30(H) 6 - 20 mg/dL 04/28/2025 5:48 AM EDT [facility] Creatinine, Blood 1.00 0.50 - 1.20 mg/dL 04/28/2025 5:48 AM EDT [facility] Glucose, Blood 119(H) 70 - 100 mg/dL 04/28/2025 5:48 AM EDT [facility] Calcium 9.3 8.4 - 10.3 mg/dL 04/28/2025 5:48 AM EDT [facility] Blood PERIPHERAL BLOOD SPECIMEN / Unknown Venipuncture / Unknown 04/28/2025 4:56 AM EDT 04/28/2025 5:14 AM EDT Mildred Srinivasan MD LAB BLOOD ORDERABLES Final Resu lt [facility] [address] [place] [address], [place] * XR Abdomen 1 VW (04/27/2025 [...] electronically signed on Apr 28 2025 02:24PM us Mildred Srinivasan MD IMG DIAGNOSTIC IMAGING ORDERABL ES Final Result * (ABNORMAL) CBC (04/27/2025 1:13 PM EDT) WBC 15.51(H) 4.00 - 10.00 K/uL 04/27/2025 1:33 PM EDT [facility] RBC 4.44(L) 4.60 - 6.10 M/uL 04/27/2025 1:33 PM EDT [facility] Hemoglobin 14.0 13.7 - 17.5 g/dL 04/27/2025 1:33 PM EDT [facility] Hematocrit 40.9 40.0 - 51.0 % 04/27/2025 1:33 PM EDT [facility] MCV 92 82 - 98 fL 04/27/2025 1:33 PM EDT [facility] MCH 31.5 26.0 - 32.0 pg 04/27/2025 1:33 PM EDT [facility] MCHC 34.2 32.0 - 37.0 g/dL 04/27/2025 1:33 PM EDT [facility] RDW 13.1 10.5 - 15.5 % 04/27/2025 1:33 PM EDT [facility] RDW-SD 43.5 35.1 - 46.3 fL 04/27/2025 1:33 PM EDT [facility] Platelet Count 332 150 - 400 K/uL 04/27/2025 1:33 PM EDT [facility] Nucleated RBC 0 <=0 #/100 WBC 04/27/2025 1:33 PM EDT [facility] Blood PERIPHERAL BLOOD SPECIMEN / Unknown Venipuncture / Unknown 04/27/2025 1:13 PM EDT 04/27/2025 1:29 PM EDT us Mildred Srinivasan MD LAB BLOOD ORDERABLES Final Resu lt [facility] [address] [place] [address], * (ABNORMAL) Comprehensive Metabolic Panel (04/27/2025 1:13 PM EDT) Sodium 136 135 - 147 mmol/L 04/27/2025 2:03 PM T [facility] Potassium 4.0 3.5 - 5.4 mmol/L 04/27/2025 2:03 PM [facility] Chloride 99 96 - 108 mmol/L 04/27/2025 2:03 PM T [facility] Total CO2/Bicarbonate 24 22 - 32 mmol/L 04/27/2025 2:03 PM [facility] Anion Gap 13 10 - 18 mmol/L 04/27/2025 2:03 PM [facility] BUN 31(H) 6 - 20 mg/dL 04/27/2025 2:03 PM [facility] Creatinine, Blood 0.90 0.50 - 1.20 mg/dL 04/27/2025 2:03 PM [facility] Glucose, Blood 132(H) 70 - 100 mg/dL 04/27/2025 2:03 PM [facility] Calcium 9.4 8.4 - 10.3 mg/dL 04/27/2025 2:03 PM [facility] Total Protein 6.7 6.4 - 8.3 g/dL 04/27/2025 2:03 PM [facility] Albumin, Blood 3.8 3.5 - 5.2 g/dL 04/27/2025 2:03 PM [facility] Globulin Result 2.9 2.0 - 4.0 g/dL 04/27/2025 2:03 PM [facility] AST (SGOT) 21 0 - 40 U/L 04/27/2025 2:03 PM [facility] ALT (SGPT) <5 0 - 40 U/L 04/27/2025 2:03 PM [facility] Alkaline Phosphatase 177(H) 40 - 130 U/L 04/27/2025 2:03 PM [facility] Total Bilirubin 0.4 0.0 - 1.5 mg/dL 04/27/2025 2:03 PM [facility] Blood PERIPHERAL BLOOD SPECIMEN / Unknown Venipuncture / Unknown 04/27/2025 1:13 PM EDT 04/27/2025 1:29 PM EDT Mildred Srinivasan MD LAB BLOOD ORDERABLES Final Resu lt Performing Organization Address City/[facility]/ZIP Co de Phone Number [facility] [address] [place] [address], [place] * (ABNORMAL) POCT Glucose (04/27/2025 11:49 AM EDT) [facility] Glucose, POC 136(H) 70 - 100 mg/dL 04/27/2025 11:50 AM EDT [facility] Comment: @Serial Sdtxzn=[id number] @Appointment Scheduler NX=[id number] Blood 04/27/2025 11:4 9 AM EDT 04/27/2025 11:50 AM EDT Mildred Srinivasan MD POCT ORDERABLES - DEVICE Final Result Performing Organization Address [facility]/ZIP Co de Phone Number [facility] [address] [place] [address], [place] * EEG 24 Hour Continuous Video EEG (LTM) (04/24/2025 9:35 AM EDT) Anatomical Region Laterality Modality EEG Impressions 04/25/2025 12:15 PM EDT Normal EEG in the awake, drowsy, and asleep states. Note on seizure risk / 3XOQQR3A scores: Interpretation of scores the risk of [...] <5%. Assessment of the Validity of the 1PITOH8A Score for Inpatient Seizure Risk Prediction. DEB Neurol. 2020 Jan 1;77(4):500504. TECHNICAL DETAILS: This is a digital video [...] with rates of 80 to 100 bpm. 5QGHNN9P score (on day 1 of EEG): 1 (suspected seizure) us Bonifacio Agudelo MD NEUROLOGY ORDERABLES Final Resul t * (ABNORMAL) CBC and Differential (04/24/2025 7:58 AM EDT) WBC 9.98 4.00 - 10.00 K/uL 04/24/2025 8:26 AM EDT [facility] RBC 3.91(L) 4.60 - 6.10 M/uL 04/24/2025 8:26 AM EDT [facility] Hemoglobin 12.4(L) 13.7 - 17.5 g/dL 04/24/2025 8:26 AM EDT [facility] Hematocrit 36.2(L) 40.0 - 51.0 % 04/24/2025 8:26 AM EDT [facility] MCV 93 82 - 98 fL 04/24/2025 8:26 AM EDT [facility] MCH 31.7 26.0 - 32.0 pg 04/24/2025 8:26 AM EDT [facility] MCHC 34.3 32.0 - 37.0 g/dL 04/24/2025 8:26 AM EDT [facility] RDW 13.2 10.5 - 15.5 % 04/24/2025 8:26 AM T [facility] RDW-SD 44.4 35.1 - 46.3 fL 04/24/2025 8:26 AM EDT [facility] Platelet Count 287 150 - 400 K/uL 04/24/2025 8:26 AM EDT [facility] Nucleated RBC 0 <=0 #/100 WBC 04/24/2025 8:26 AM EDT [facility] Neutrophil 75.0(H) 34.0 - 71.0 % 04/24/2025 8:26 AM EDT [facility] Lymphocyte 14.5(L) 19.0 - 53.0 % 04/24/2025 8:26 AM EDT [facility] Monocyte 8.2 5.0 - 13.0 % 04/24/2025 8:26 AM EDT [facility] Eosinophil 0.0(L) 1.0 - 7.0 % 04/24/2025 8:26 AM EDT [facility] Basophil 0.6 0.0 - 1.0 % 04/24/2025 8:26 AM EDT [facility] Immature Granulocyte ([place], Myelo, Promyelocyte) 1.7(H) 0.0 - 0.6 % 04/24/2025 8:26 AM EDT [facility] Absolute Neutrophil Count 7.48(H) 1.60 - 6.10 K/uL 04/24/2025 8:26 AM EDT [facility] Absolute Lymphocyte Count 1.45 1.20 - 3.70 K/uL 04/24/2025 8:26 AM EDT [facility] Absolute Monocyte Count 0.82(H) 0.20 - 0.80 K/uL 04/24/2025 8:26 AM EDT [facility] Absolute Eosinophil Count 0.00(L) 0.04 - 0.54 K/uL 04/24/2025 8:26 AM EDT [facility] Absolute Basophil Count 0.06 0.01 - 0.08 K/uL 04/24/2025 8:26 AM EDT [facility] Absolute Immature Granulocyte ([place], Myelo, Promyelocyte) 0.17(H) 0.00 - 0.09 K/uL 04/24/2025 8:26 AM EDT [facility] Blood PERIPHERAL BLOOD SPECIMEN / Unknown Venipuncture / Unknown 04/24/2025 7:58 AM EDT 04/24/2025 8:11 AM EDT us Bonifacio Agudelo MD LAB BLOOD ORDERABLES Final Resul t [facility] [address] [place] [address], [place] * Phosphorus (04/24/2025 7:58 AM EDT) Phosphorus 3.3 2.7 - 4.5 mg/dL 04/24/2025 8:42 AM EDT [facility] Blood PERIPHERAL BLOOD SPECIMEN / Unknown Venipuncture / Unknown 04/24/2025 7:58 AM EDT 04/24/2025 8:11 AM EDT us Bonifacio Agudelo MD LAB BLOOD ORDERABLES Final Resul t [facility] [address] [place] [address], [place] * Magnesium (04/24/2025 7:58 AM EDT) Pathologist [facility] Magnesium, Blood 2.2 1.6 - 2.6 mg/dL 04/24/2025 8:42 AM EDT [facility] Blood PERIPHERAL BLOOD SPECIMEN / Unknown Venipuncture / Unknown 04/24/2025 7:58 AM EDT 04/24/2025 8:11 AM EDT Bonifacio Agudelo MD LAB BLOOD ORDERABLES Final Resul t Performing Organization Address [facility] Co de Phone Number [facility] [address] [place] [address], [place] * (ABNORMAL) Basic Metabolic Panel (04/24/2025 7:58 AM EDT) [facility] Sodium 141 135 - 147 mmol/L 04/24/2025 9:10 AM EDT [facility] Potassium 3.9 3.5 - 5.4 mmol/L 04/24/2025 9:10 AM EDT [facility] Chloride 104 96 - 108 mmol/L 04/24/2025 9:10 AM EDT [facility] Total CO2/Bicarbonat e 26 22 - 32 mmol/L 04/24/2025 9:10 AM EDT [facility] Anion Gap 11 10 - 18 mmol/L 04/24/2025 9:10 AM EDT [facility] BUN 35(H) 6 - 20 mg/dL 04/24/2025 9:10 AM EDT [facility] Creatinine, Blood 0.90 0.50 - 1.20 mg/dL 04/24/2025 9:10 AM EDT [facility] Glucose, Blood 154(H) 70 - 100 mg/dL 04/24/2025 9:10 AM EDT [facility] Calcium 9.2 8.4 - 10.3 mg/dL 04/24/2025 9:10 AM EDT [facility] Blood PERIPHERAL BLOOD SPECIMEN / Unknown Venipuncture / Unknown 04/24/2025 7:58 AM EDT 04/24/2025 8:11 AM EDT us Bonifacio Agudelo MD LAB BLOOD ORDERABLES Final Resul t [facility] [address] [place] [address], [place] * (ABNORMAL) POCT Glucose (04/23/2025 9:39 PM EDT) Glucose, POC 110(H) 70 - 100 mg/dL 04/23/2025 9:44 PM EDT [facility] Comment: @Serial Hsjlle=[id number] @Appointment Scheduler UB=[id number] Blood 04/23/2025 9:39 PM EDT 04/23/2025 9:44 PM EDT us Bonifacio Agudelo MD POCT ORDERABLES - DEVICE Final R esult Performing Organization Address [facility]/ZIP Co de Phone Number [facility] [address] [place] [address], [place] * Urine Micro Hold (04/23/2025 9:26 PM EDT) Micro Urine Reflex Hold Received 04/23/2025 11:01 PM EDT [facility] AP Urine MID-STREAM URINE SPECIMEN / Unknown Collection / Unknown 04/23/2025 9:26 PM EDT 04/23/2025 9:30 PM EDT us Bonifacio Agudelo MD URINE ORDERABLES Final Result Performing Organization Address City/[facility]/ZIP Co de Phone Number [facility] AP [address] [place] [address], [place] * (ABNORMAL) Urinalysis with Reflex to Urine Culture (04/23/2025 9:26 PM EDT) Color, Urine Yellow Yellow, Colorless, Straw 04/23/2025 9:42 PM EDT [facility] Clarity, Urine Clear Clear 04/23/2025 9:42 PM EDT [facility] pH, Urine 6.0 5.0 - 8.0 04/23/2025 9:42 PM EDT [facility] Protein, Urine Negative Negative 04/23/2025 9:42 PM EDT [facility] Glucose, Urine Negative Negative 04/23/2025 9:42 PM EDT [facility] Ketone, Urine Negative Negative 04/23/2025 9:42 PM EDT [facility] Bilirubin, Urine Negative Negative 04/23/2025 9:42 PM EDT [facility] Urobilinogen, Urine Normal 0.2-1.0 mg/dL 04/23/2025 9:42 PM EDT [facility] Blood, Urine Negative Negative 04/23/2025 9:42 PM EDT [facility] Leukocyte Esterase, Urine Negative Negative 04/23/2025 9:42 PM EDT [facility] Nitrite, Urine Negative Negative 04/23/2025 9:42 PM EDT [facility] Specific [place], Urine 1.016 1.001 - 1.050 04/23/2025 9:42 PM EDT [facility] White Blood Cells, Urine 0 0 - 5 /hpf 04/23/2025 9:42 PM EDT [facility] Red Blood Cells, Urine <1 0 - 2 /hpf 04/23/2025 9:42 PM EDT [facility] Mucous Threads Rare(A) None Seen 04/23/2025 9:42 PM EDT [facility] Urine MID-STREAM URINE SPECIMEN / Unknown Collection / Unknown 04/23/2025 9:26 PM EDT 04/23/2025 9:29 PM EDT us Bonifacio Agudelo MD URINE ORDERABLES Final Result [facility] [address] [place] [address], [place] * (ABNORMAL) Differential with WBC (04/23/2025 7:21 AM EDT) WBC 12.83(H) 4.00 - 10.00 K/uL 04/23/2025 9:42 AM EDT [facility] Neutrophil 78.7(H) 34.0 - 71.0 % 04/23/2025 9:42 AM T [facility] Lymphocyte 11.3(L) 19.0 - 53.0 % 04/23/2025 9:42 AM [facility] Monocyte 7.8 5.0 - 13.0 % 04/23/2025 9:42 AM T [facility] Eosinophil 0.0(L) 1.0 - 7.0 % 04/23/2025 9:42 AM [facility] Basophil 0.6 0.0 - 1.0 % 04/23/2025 9:42 AM [facility] Nucleated RBC 0 <=0 #/100 WBC 04/23/2025 9:42 AM [facility] Absolute Neutrophil Count 10.25(H) 1.60 - 6.10 K/uL 04/23/2025 9:42 AM T [facility] Absolute Lymphocyte Count 1.47 1.20 - 3.70 K/uL 04/23/2025 9:42 AM [facility] Absolute Monocyte Count 1.02(H) 0.20 - 0.80 K/uL 04/23/2025 9:42 AM [facility] Absolute Eosinophil Count 0.00(L) 0.04 - 0.54 K/uL 04/23/2025 9:42 AM [facility] Absolute Basophil Count 0.08 0.01 - 0.08 K/uL 04/23/2025 9:42 AM T [facility] Immature Granulocyte ([place], Myelo, Promyelocyte) 1.6(H) 0.0 - 0.6 % 04/23/2025 9:42 AM [facility] Absolute Immature Granulocyte ([place], Myelo, Promyelocyte) 0.21(H) 0.00 - 0.09 K/uL 04/23/2025 9:42 AM [facility] Blood PERIPHERAL BLOOD SPECIMEN / Unknown Venipuncture / Unknown 04/23/2025 7:21 AM EDT 04/23/2025 7:29 AM EDT us Bonifacio Agudelo MD LAB BLOOD ORDERABLES Final Resul t [facility] [address] [place] [address], [place] * Phosphorus (04/23/2025 7:21 AM EDT) Phosphorus 3.3 2.7 - 4.5 mg/dL 04/23/2025 8:02 AM EDT [facility] Blood PERIPHERAL BLOOD SPECIMEN / Unknown Venipuncture / Unknown 04/23/2025 7:21 AM EDT 04/23/2025 7:29 AM EDT us Bonifacio Agudelo MD LAB BLOOD ORDERABLES Final Resul t Performing Organization Address City/[facility]/ZIP Co de Phone Number [facility] [address] [place] [address], [place] * Magnesium (04/23/2025 7:21 AM EDT) Magnesium, Blood 2.1 1.6 - 2.6 mg/dL 04/23/2025 8:02 AM EDT [facility] Blood PERIPHERAL BLOOD SPECIMEN / Unknown Venipuncture / Unknown 04/23/2025 7:21 AM EDT 04/23/2025 7:29 AM EDT us Bonifacio Agudelo MD LAB BLOOD ORDERABLES Final Resul t Performing Organization Address City/[facility]/ZIP Co de Phone Number [facility] [address] [place] [address], [place] * (ABNORMAL) Basic Metabolic Panel (04/23/2025 7:21 AM EDT) Sodium 139 135 - 147 mmol/L 04/23/2025 8:02 AM EDT [facility] Potassium 3.9 3.5 - 5.4 mmol/L 04/23/2025 8:02 AM EDT [facility] Chloride 103 96 - 108 mmol/L 04/23/2025 8:02 AM EDT [facility] Total CO2/Bicarbonat e 23 22 - 32 mmol/L 04/23/2025 8:02 AM EDT [facility] Anion Gap 13 10 - 18 mmol/L 04/23/2025 8:02 AM EDT [facility] BUN 42(H) 6 - 20 mg/dL 04/23/2025 8:02 AM EDT [facility] Creatinine, Blood 0.90 0.50 - 1.20 mg/dL 04/23/2025 8:02 AM EDT [facility] Glucose, Blood 171(H) 70 - 100 mg/dL 04/23/2025 8:02 AM EDT [facility] Calcium 9.3 8.4 - 10.3 mg/dL 04/23/2025 8:02 AM EDT [facility] Estimated GFR(CKD-EPI) 94 mL/min/BSA 04/23/2025 8:02 AM T [facility] Blood PERIPHERAL BLOOD SPECIMEN / Unknown Venipuncture / Unknown 04/23/2025 7:21 AM EDT 04/23/2025 7:29 AM EDT us Bonifacio Agudelo MD LAB BLOOD ORDERABLES Final Resul t [facility] [address] [place] [address], * (ABNORMAL) CBC (04/23/2025 7:21 AM EDT) WBC 12.83(H) 4.00 - 10.00 K/uL 04/23/2025 8:01 AM EDT [facility] RBC 3.91(L) 4.60 - 6.10 M/uL 04/23/2025 8:01 AM EDT [facility] Hemoglobin 12.4(L) 13.7 - 17.5 g/dL 04/23/2025 8:01 AM EDT [facility] Hematocrit 37.7(L) 40.0 - 51.0 % 04/23/2025 8:01 AM EDT [facility] MCV 96 82 - 98 fL 04/23/2025 8:01 AM EDT [facility] MCH 31.7 26.0 - 32.0 pg 04/23/2025 8:01 AM EDT [facility] MCHC 32.9 32.0 - 37.0 g/dL 04/23/2025 8:01 AM EDT [facility] RDW 13.2 10.5 - 15.5 % 04/23/2025 8:01 AM EDT [facility] RDW-SD 46.8(H) 35.1 - 46.3 fL 04/23/2025 8:01 AM EDT [facility] Platelet Count 285 150 - 400 K/uL 04/23/2025 8:01 AM EDT [facility] Nucleated RBC 0 <=0 #/100 WBC 04/23/2025 8:01 AM EDT [facility] Blood PERIPHERAL BLOOD SPECIMEN / Unknown Venipuncture / Unknown 04/23/2025 7:21 AM EDT 04/23/2025 7:29 AM EDT us Bonifacio Agudelo MD LAB BLOOD ORDERABLES Final Resul t [facility] [address] [place] [address], * EEG 24 Hour Continuous Video EEG (LTM) (04/23/2025 7:08 AM EDT) Anatomical Region Laterality Modality EEG Impressions 04/23/2025 2:52 PM EDT This continuous EEG showed a normal background in wakefulness and and sleep. There were no areas of significant focal slowing, there were no epileptiform features or electrographic seizures. Attending: Nir Ojeda MD Note on seizure risk / 6DOVPN3P scores: Interpretation of scores the risk of [...] <5%. [Assessment of the Validity of the [id number] Score for Inpatient Seizure Risk Prediction. DEB Neurol. 2020 Jan 1;77(4):500-507.] Narrative 04/23/2025 2:52 PM EDT Table formatting from the original result was not included. CLINICAL NEUROPHYSIOLOGY LAB Department of Neurology [facility] Sunil Knox [address] [place] [id number] ; [phone] Name: Carter Raymundo : 1955 Age: 69 [...] discharges. SEIZURES: There were no electrographic seizures. [employer] TENDER: Showed a generally regular rhythm, often with rates of 80 to 100 bpm. EVENTS: There were no pushbutton activations. 7IERRE2H score (Day1): 0 us Bonifacio Agudelo MD [...] Ojeda MD Note on seizure risk / [id number] scores: Interpretation of scores the risk of [...] <5%. [Assessment of the Validity of the [id number] Score for Inpatient Seizure Risk Prediction. DEB Neurol. 2019Jan 20;77(4):500-507.] Narrative 04/23/2025 1:07 PM EDT Table formatting from the original result was not included. CLINICAL NEUROPHYSIOLOGY LAB Department of Neurology [address] [place] [address] ; [phone] Name: Carter Raymundo : 1955 Age: 69 [...] discharges. SEIZURES: There were no electrographic seizures. 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 EVENTS: There were no pushbutton activations. [id number] score (Day1): 0 us Bonifacio Agudelo MD [...] Result * Prolactin (04/22/2025 12:02 PM EDT) Prolactin, Blood 14.0 4.0 - 15.0 ng/mL 04/22/2025 3:28 PM EDT [facility] Comment:Measured by Desiree El [employer]csys (ECLIA) version 2 which is largely unaffected by macroprolactin. Patient results determined by different manufacturers or methods may not be comparable. Blood PERIPHERAL BLOOD SPECIMEN / Unknown Venipuncture / Unknown 04/22/2025 12:02 PM EDT 04/22/2025 12:23 PM EDT Bonifacio Agudelo MD LAB BLOOD ORDERABLES Final Resul t Performing Organization Address [facility] Co de Phone Number [facility] [address] [place] [address], [place] * Clozapine Level, Blood (04/22/2025 12:02 PM EDT) Norclozapine 140 25 - 400 mcg/L 04/27/2025 1:00 AM EDT [facility] Clozapine 386 mcg/L 04/27/2025 1:00 AM EDT [facility] Comment: The therapeutic response begins to appear at 100 mcg/L. Refractory schizophrenia appears to require a therapeutic concentration of at least 350 mcg/L (trough, at steady state). Toxic range: Greater than 900 mcg/L This test was developed and its analytical performance characteristics have been determined by [employer], [place]. It has not been cleared or approved by the U.S. Food and Drug Administration. This assay has been validated pursuant to the CLIA regulations and is used for clinical purposes. Blood PERIPHERAL BLOOD SPECIMEN / Unknown Venipuncture / Unknown 04/22/2025 12:02 PM EDT 04/22/2025 12:23 PM EDT Narrative ADRIANA FONTANA MA - 04/27/2025 1:00 AM EDT Performing Organization Information: Site ID: [id number] Name: [employer] Address: [address] [place] [id number] Director: LEONEL RUIZ MD,PHD us Bonifacio Agudelo MD LAB BLOOD ORDERABLES Final Resul t Performing Organization Address City/[facility]/ZIP Co de Phone Number ADRIANA FONTANA [place] [address] [place] [address], * CT Head Without Contrast (04/22/2025 11:55 [...] PM EDT EXAMINATION: CT HEAD WO CONTRAST [id number] CT HEAD INDICATION: Altered Mental Status TECHNIQUE: [...] - 04/22/2025 EXAMINATION: CT HEAD WO CONTRAST [id number] CT HEAD INDICATION: Altered Mental Status TECHNIQUE: [...] electronically signed on Apr 22 2025 12:45PM Bonifacio Agudelo MD IMG CT ORDERABLES Final Result * ECG 12 lead (04/22/2025 11:27 AM EDT) Ventricular Heart Rate 119 BPM EKG BUR MUSE Atrial Heart Rate 119 BPM EKG BUR MUSE [place] Interval 144 ms EKG BUR MUSE QRSD Interval 96 ms EKG BUR MUSE QT Interval 362 ms EKG BUR MUSE QTC Interval 509 ms EKG BUR MUSE P [place] 58 degrees EKG BUR MUSE R [place] -36 degrees EKG BUR MUSE T Wave [place] 72 degrees EKG BUR MUSE 04/22/2025 11:2 7 AM EDT 04/22/2025 10:28 PM EDT Narrative EKG BUR MUSE - 04/22/2025 10:28 PM EDT Sinus [...] Agudelo MD ECG ORDERABLES Final Result EKG BUR [address] [address] * (ABNORMAL) Hepatic Function Panel (04/22/2025 11:21 AM EDT) Total Protein 6.7 6.4 - 8.3 g/dL 04/22/2025 12:11 PM EDT [facility] Albumin, Blood 3.7 3.5 - 5.2 g/dL 04/22/2025 12:11 PM EDT [facility] Globulin Result 3.0 2.0 - 4.0 g/dL 04/22/2025 12:11 PM EDT [facility] Total Bilirubin 0.3 0.0 - 1.5 mg/dL 04/22/2025 12:11 PM EDT [facility] Direct Bilirubin 0.1 0.0 - 0.3 mg/dL 04/22/2025 12:11 PM EDT [facility] Alkaline Phosphatase 161(H) 40 - 130 U/L 04/22/2025 12:11 PM EDT [facility] AST (SGOT) 17 0 - 40 U/L 04/22/2025 12:11 PM EDT [facility] ALT (SGPT) <5 0 - 40 U/L 04/22/2025 12:11 PM EDT [facility] Blood PERIPHERAL BLOOD SPECIMEN / Unknown Venipuncture / Unknown 04/22/2025 11:21 AM EDT 04/22/2025 11:25 AM EDT Bonifacio Agudelo MD LAB BLOOD ORDERABLES Final Resul t [facility] [address] [place] [address], [place] * (ABNORMAL) CK (Creatine Kinase) (04/22/2025 11:21 AM EDT) Creatine Kinase Total (CK) 26(L) 47 - 322 U/L 04/22/2025 12:11 PM EDT [facility] Blood PERIPHERAL BLOOD SPECIMEN / Unknown Venipuncture / Unknown 04/22/2025 11:21 AM EDT 04/22/2025 11:25 AM EDT us Bonifacio Agudelo MD LAB BLOOD ORDERABLES Final Resul t [facility] [address] [place] [address], [place] * Lactic Acid (04/22/2025 11:21 AM EDT) Pathologist [facility] Lactic Acid 2.0 0.5 - 2.0 mmol/L 04/22/2025 11:42 AM EDT [facility] Blood Venipuncture / Unknown 04/22/2025 11:21 AM EDT 04/22/2025 11:24 AM EDT us Bonifacio Agudelo MD LAB BLOOD ORDERABLES Final Resul t [facility] [address] [place] [address], [place] * (ABNORMAL) Blood Gas, Venous (04/22/2025 11:21 AM EDT) Pathologist [facility] pH, Venous 7.48(H) 7.35 - 7.45 04/22/2025 11:26 AM EDT [facility] pCO2, Venous 35 35 - 45 mmHg 04/22/2025 11:26 AM EDT [facility] pO2, Venous 203(H) 80 - 105 mmHg 04/22/2025 11:26 AM EDT [facility] HCO3, Venous 26 21 - 30 mmol/L 04/22/20 11:26 AM EDT [facility] % O2Hb, Venous 97 95 - 99 % 04/22/2025 11:26 AM EDT [facility] Base Excess, Venous 3.1 No Established Reference Range mmol/L 04/22/2025 11:26 AM EDT [facility] Carboxyhemogl obin, VBG 1.9(H) 0.5 - 1.5 % 04/22/2025 11:26 AM EDT [facility] Methemoglobin , VBG 0.4 0.2 - 0.6 % 04/22/2025 11:26 AM EDT [facility] Blood Venipuncture / Unknown 04/22/2025 11:21 AM EDT 04/22/2025 11:24 AM EDT us Bonifacio Agudelo MD LAB BLOOD ORDERABLES Final Resul t [facility] [address] [place] [address], * (ABNORMAL) CBC (04/22/2025 11:21 AM EDT) WBC 10.35(H) 4.00 - 10.00 K/uL 04/22/2025 11:32 AM EDT [facility] RBC 4.49(L) 4.60 - 6.10 M/uL 04/22/2025 11:32 AM EDT [facility] Hemoglobin 14.0 13.7 - 17.5 g/dL 04/22/2025 11:32 AM EDT [facility] Hematocrit 41.4 40.0 - 51.0 % 04/22/2025 11:32 AM EDT [facility] MCV 92 82 - 98 fL 04/22/2025 11:32 AM EDT [facility] MCH 31.2 26.0 - 32.0 pg 04/22/2025 11:32 AM EDT [facility] MCHC 33.8 32.0 - 37.0 g/dL 04/22/2025 11:32 AM EDT [facility] RDW 13.2 10.5 - 15.5 % 04/22/2025 11:32 AM EDT [facility] RDW-SD 45.0 35.1 - 46.3 fL 04/22/2025 11:32 AM EDT [facility] Platelet Count 290 150 - 400 K/uL 04/22/2025 11:32 AM EDT [facility] Nucleated RBC 0 <=0 #/100 WBC 04/22/2025 11:32 AM EDT [facility] Blood PERIPHERAL BLOOD SPECIMEN / Unknown Venipuncture / Unknown 04/22/2025 11:21 AM EDT 04/22/2025 11:27 AM EDT us Bonifacio Agudelo MD LAB BLOOD ORDERABLES Final Resul t [facility] [address] [place] [address], * (ABNORMAL) Basic Metabolic Panel (04/22/2025 11:21 AM EDT) Sodium 144 135 - 147 mmol/L 04/22/2025 12:11 PM EDT [facility] Potassium 4.4 3.5 - 5.4 mmol/L 04/22/2025 12:11 PM EDT [facility] Chloride 107 96 - 108 mmol/L 04/22/2025 12:11 PM EDT [facility] Total CO2/Bicarbonat e 24 22 - 32 mmol/L 04/22/2025 12:11 PM EDT [facility] Anion Gap 13 10 - 18 mmol/L 04/22/2025 12:11 PM EDT [facility] BUN 35(H) 6 - 20 mg/dL 04/22/2025 12:11 PM EDT [facility] Creatinine, Blood 1.00 0.50 - 1.20 mg/dL 04/22/2025 12:11 PM EDT [facility] Glucose, Blood 127(H) 70 - 100 mg/dL 04/22/2025 12:11 PM EDT [facility] Calcium 9.6 8.4 - 10.3 mg/dL 04/22/2025 12:11 PM EDT [facility] Blood PERIPHERAL BLOOD SPECIMEN / Unknown Venipuncture / Unknown 04/22/2025 11:21 AM EDT 04/22/2025 11:25 AM EDT us Bonifacio Agudelo MD LAB BLOOD ORDERABLES Final Resul t [facility] [address] [place] [address], [place] * (ABNORMAL) POCT Glucose (04/22/2025 11:07 AM EDT) Glucose, POC 116(H) 70 - 100 mg/dL 04/22/2025 4:17 PM EDT [facility] Comment: @Serial [id number] @Appointment Scheduler TB=[id number] Blood 04/22/2025 11:0 7 AM EDT 04/22/2025 4:17 PM EDT us Bonifacio Agudelo MD POCT ORDERABLES - DEVICE Final R esult Performing Organization Address City/[facility]/ZIP Co de Phone Number [facility] [address] [facility] [place] [address], [place] * (ABNORMAL) CBC and Differential (04/22/2025 6:56 AM EDT) WBC 9.15 4.00 - 10.00 K/uL 04/22/2025 7:41 AM EDT [facility] RBC 4.17(L) 4.60 - 6.10 M/uL 04/22/2025 7:41 AM EDT [facility] Hemoglobin 13.0(L) 13.7 - 17.5 g/dL 04/22/2025 7:41 AM EDT [facility] Hematocrit 38.9(L) 40.0 - 51.0 % 04/22/2025 7:41 AM EDT [facility] MCV 93 82 - 98 fL 04/22/2025 7:41 AM EDT [facility] MCH 31.2 26.0 - 32.0 pg 04/22/2025 7:41 AM EDT [facility] MCHC 33.4 32.0 - 37.0 g/dL 04/22/2025 7:41 AM EDT [facility] RDW 13.2 10.5 - 15.5 % 04/22/2025 7:41 AM [facility] RDW-SD 45.0 35.1 - 46.3 fL 04/22/2025 7:41 AM [facility] Platelet Count 277 150 - 400 K/uL 04/22/2025 7:41 AM [facility] Nucleated RBC 0 <=0 #/100 WBC 04/22/2025 7:41 AM [facility] Neutrophil 74.7(H) 34.0 - 71.0 % 04/22/2025 7:41 AM [facility] Lymphocyte 15.1(L) 19.0 - 53.0 % 04/22/2025 7:41 AM [facility] Monocyte 8.7 5.0 - 13.0 % 04/22/2025 7:41 AM [facility] Eosinophil 0.0(L) 1.0 - 7.0 % 04/22/2025 7:41 AM [facility] Basophil 0.4 0.0 - 1.0 % 04/22/2025 7:41 AM [facility] Immature Granulocyte ([place], Myelo, Promyelocyte) 1.1(H) 0.0 - 0.6 % 04/22/2025 7:41 AM [facility] Absolute Neutrophil Count 6.83(H) 1.60 - 6.10 K/uL 04/22/2025 7:41 AM [facility] Absolute Lymphocyte Count 1.38 1.20 - 3.70 K/uL 04/22/2025 7:41 AM [facility] Absolute Monocyte Count 0.80 0.20 - 0.80 K/uL 04/22/2025 7:41 AM [facility] Absolute Eosinophil Count 0.00(L) 0.04 - 0.54 K/uL 04/22/2025 7:41 AM [facility] Absolute Basophil Count 0.04 0.01 - 0.08 K/uL 04/22/2025 7:41 AM [facility] Absolute Immature Granulocyte ([place], Myelo, Promyelocyte) 0.10(H) 0.00 - 0.09 K/uL 04/22/2025 7:41 AM EDT [facility] Blood PERIPHERAL BLOOD SPECIMEN / Unknown Venipuncture / Unknown 04/22/2025 6:56 AM EDT 04/22/2025 7:12 AM EDT Bonifacio Agudelo MD LAB BLOOD ORDERABLES Final Resul t Performing Organization Address City/[facility]/ZIP Co de Phone Number [facility] [address] [place] [address], [place] * Magnesium (04/20/2025 6:54 AM EDT) Magnesium, Blood 2.1 1.6 - 2.6 mg/dL 04/20/2025 7:46 AM EDT [facility] Blood PERIPHERAL BLOOD SPECIMEN / Unknown Venipuncture / Unknown 04/20/2025 6:54 AM EDT 04/20/2025 7:10 AM EDT Chuy Hernandez MD LAB BLOOD ORDERABLES Final R esult Performing Organization Address City/[facility]/ZIP Co de Phone Number [facility] [address] [place] [address], [place] * Phosphorus (04/20/2025 6:54 AM EDT) Phosphorus 4.0 2.7 - 4.5 mg/dL 04/20/2025 7:46 AM EDT [facility] Blood PERIPHERAL BLOOD SPECIMEN / Unknown Venipuncture / Unknown 04/20/2025 6:54 AM EDT 04/20/2025 7:10 AM EDT Chuy Hernandez MD LAB BLOOD ORDERABLES Final R esult Performing Organization Address City/[facility]/ZIP Co de Phone Number [facility] [address] [place] [address], [place] * (ABNORMAL) Basic Metabolic Panel (04/20/2025 6:54 AM EDT) Sodium 141 135 - 147 mmol/L 04/20/2025 7:47 AM EDT [facility] Potassium 3.7 3.5 - 5.4 mmol/L 04/20/2025 7:47 AM EDT [facility] Chloride 107 96 - 108 mmol/L 04/20/2025 7:47 AM EDT [facility] Total CO2/Bicarbonat e 24 22 - 32 mmol/L 04/20/2025 7:47 AM EDT [facility] Anion Gap 10 10 - 18 mmol/L 04/20/2025 7:47 AM EDT [facility] BUN 31(H) 6 - 20 mg/dL 04/20/2025 7:47 AM EDT [facility] Creatinine, Blood 1.00 0.50 - 1.20 mg/dL 04/20/2025 7:47 AM EDT [facility] Glucose, Blood 134(H) 70 - 100 mg/dL 04/20/2025 7:47 AM EDT [facility] Calcium 9.1 8.4 - 10.3 mg/dL 04/20/2025 7:47 AM EDT [facility] Blood PERIPHERAL BLOOD SPECIMEN / Unknown Venipuncture / Unknown 04/20/2025 6:54 AM EDT 04/20/2025 7:10 AM EDT us Chuy Hernandez MD LAB BLOOD ORDERABLES Final R esult [facility] [address] [place] [address], * (ABNORMAL) CBC (04/20/2025 6:54 AM EDT) WBC 9.24 4.00 - 10.00 K/uL 04/20/2025 7:20 AM EDT [facility] RBC 3.96(L) 4.60 - 6.10 M/uL 04/20/2025 7:20 AM EDT [facility] Hemoglobin 12.4(L) 13.7 - 17.5 g/dL 04/20/2025 7:20 AM EDT [facility] Hematocrit 36.6(L) 40.0 - 51.0 % 04/20/2025 7:20 AM EDT [facility] MCV 92 82 - 98 fL 04/20/2025 7:20 AM EDT [facility] MCH 31.3 26.0 - 32.0 pg 04/20/2025 7:20 AM EDT [facility] MCHC 33.9 32.0 - 37.0 g/dL 04/20/2025 7:20 AM EDT [facility] RDW 13.5 10.5 - 15.5 % 04/20/2025 7:20 AM EDT [facility] RDW-SD 45.9 35.1 - 46.3 fL 04/20/2025 7:20 AM EDT [facility] Platelet Count 267 150 - 400 K/uL 04/20/2025 7:20 AM EDT [facility] Nucleated RBC 0 <=0 #/100 WBC 04/20/2025 7:20 AM EDT [facility] Blood PERIPHERAL BLOOD SPECIMEN / Unknown Venipuncture / Unknown 04/20/2025 6:54 AM EDT 04/20/2025 7:09 AM EDT us Chuy Hernandez MD LAB BLOOD ORDERABLES Final R esult [facility] [address] [place] [address], [place] * XR Abdomen Portable (04/19/2025 6:48 [...] has gastrostomy tube placed by surgery in [facility] in December of this year. Patient pulled [...] supine. A pre-procedure time-out was performed per [facility] protocol. The upper abdomen and tube site [...] rescue with placement of a new 16 Croatian (3 cm stoma length) gastrostomy tube. Recommend [...] draped in a sterile fashion. A 12 Croatian Maharaj was identified in the gastrostomy tract. The balloon of the Maharaj was deflated. A stiff Glidewire was advanced through the Maharaj catheter into the stomach. The Maharaj was removed with gentle traction. A 16 Croatian low- profile 3 cm stoma gastrostomy tube was advanced over the stiff Glidewire and into the stomach. The balloon was inflated with sterile water. The gastrostomy tube was aspirated revealing gastric contents. The gastrostomy tube was then flushed sterile water. Sterile dressings were applied. Patient tolerated the procedure well. No immediate postprocedural complications. COMPARISON: None available. FINDINGS: Existing gastrostomy tract with 12 Croatian Maharaj. Placement of new 16 Croatian 3 cm low-profile gastrostomy tube with aspiration of gastric contents confirming appropriate position. Recommend confirmation with injection of contrast and radiograph. Procedure Note Nataliya Gutierres NP / Cassandra Fernandez MD - 05/12/2025 INDICATION: G tube rescue; Additional information: 69-year-old male with recurrent aspirationoropharyngeal dysphagia [facility]. [facility]NIQUE: OPERATORS: Dr. Fernandez, attending interventional [...] draped in a sterile fashion. A 12 Croatian Maharaj was identifiedin the gastrostomy tract. The balloon of the Maharaj was deflated. A stiff Glidewire was advanced through the Foleycatheter into the stomach. The Maharaj was removed with gentle traction. A16 Croatian low-profile 3 cm stoma gastrostomy tube was advanced over thestiff Glidewire and into the stomach. The balloon was inflated with sterile water. The gastrostomy tubewas aspirated revealing gastric contents. The gastrostomy tube was thenflushed sterile water. Sterile dressings were applied. Patient tolerated the procedure well. No immediate postproceduralcomplications. COMPARISON: None available. FINDINGS: Existing gastrostomy tract with 12 Croatian Maharaj. Placement of new 16 Croatian 3 cm low-profile gastrostomy tube withaspiration of [...] - 2.6 mg/dL 04/19/2025 7:06 AM EDT [facility] Blood PERIPHERAL BLOOD SPECIMEN / Unknown Venipuncture / Unknown 04/19/2025 6:10 AM EDT 04/19/2025 6:36 AM EDT Chuy Hernandez MD LAB BLOOD ORDERABLES Final R esult Performing Organization Address City/[facility]/ZIP Co de Phone Number [facility] [address] [place] [address], [place] * Phosphorus (04/19/2025 6:10 AM EDT) Phosphorus 2.9 2.7 - 4.5 mg/dL 04/19/2025 7:06 AM EDT [facility] Blood PERIPHERAL BLOOD SPECIMEN / Unknown Venipuncture / Unknown 04/19/2025 6:10 AM EDT 04/19/2025 6:36 AM EDT Chuy Hernandez MD LAB BLOOD ORDERABLES Final R esult [facility] [address] [place] [address], [place] * (ABNORMAL) Basic Metabolic Panel (04/19/2025 6:10 AM EDT) Pathologist [facility] Sodium 140 135 - 147 mmol/L 04/19/2025 7:06 AM EDT [facility] Potassium 3.4(L) 3.5 - 5.4 mmol/L 04/19/2025 7:06 AM EDT [facility] Chloride 104 96 - 108 mmol/L 04/19/2025 7:06 AM EDT [facility] Total CO2/Bicarbonat e 26 22 - 32 mmol/L 04/19/2025 7:06 AM EDT [facility] Anion Gap 10 10 - 18 mmol/L 04/19/2025 7:06 AM EDT [facility] BUN 33(H) 6 - 20 mg/dL 04/19/2025 7:06 AM EDT [facility] Creatinine, Blood 1.10 0.50 - 1.20 mg/dL 04/19/2025 7:06 AM EDT [facility] Glucose, Blood 142(H) 70 - 100 mg/dL 04/19/2025 7:06 AM EDT [facility] Calcium 9.1 8.4 - 10.3 mg/dL 04/19/2025 7:06 AM EDT [facility] Blood PERIPHERAL BLOOD SPECIMEN / Unknown Venipuncture / Unknown 04/19/2025 6:10 AM EDT 04/19/2025 6:36 AM EDT us Chuy Hernandez MD LAB BLOOD ORDERABLES Final R esult [facility] [address] [place] [address], [place] * (ABNORMAL) CBC (04/19/2025 6:10 AM EDT) WBC 9.06 4.00 - 10.00 K/uL 04/19/2025 6:43 AM EDT [facility] RBC 3.95(L) 4.60 - 6.10 M/uL 04/19/2025 6:43 AM EDT [facility] Hemoglobin 12.5(L) 13.7 - 17.5 g/dL 04/19/2025 6:43 AM EDT [facility] Hematocrit 36.6(L) 40.0 - 51.0 % 04/19/2025 6:43 AM EDT [facility] MCV 93 82 - 98 fL 04/19/2025 6:43 AM EDT [facility] MCH 31.6 26.0 - 32.0 pg 04/19/2025 6:43 AM EDT [facility] MCHC 34.2 32.0 - 37.0 g/dL 04/19/2025 6:43 AM EDT [facility] RDW 13.4 10.5 - 15.5 % 04/19/2025 6:43 AM EDT [facility] RDW-SD 46.1 35.1 - 46.3 fL 04/19/2025 6:43 AM EDT [facility] Platelet Count 252 150 - 400 K/uL 04/19/2025 6:43 AM EDT [facility] Nucleated RBC 0 <=0 #/100 WBC 04/19/2025 6:43 AM EDT [facility] Blood PERIPHERAL BLOOD SPECIMEN / Unknown Venipuncture / Unknown 04/19/2025 6:10 AM EDT 04/19/2025 6:33 AM EDT us Chuy Hernandez MD LAB BLOOD ORDERABLES Final R esult [facility] [address] [place] [address], * Magnesium (04/18/2025 7:10 AM EDT) Magnesium, Blood 2.0 1.6 - 2.6 mg/dL 04/18/2025 7:56 AM EDT [facility] Blood PERIPHERAL BLOOD SPECIMEN / Unknown Venipuncture / Unknown 04/18/2025 7:10 AM EDT 04/18/2025 7:22 AM EDT us Chuy Hernandez MD LAB BLOOD ORDERABLES Final R esult [facility] [address] [place] [address], [place] * Phosphorus (04/18/2025 7:10 AM EDT) Phosphorus 3.7 2.7 - 4.5 mg/dL 04/18/2025 7:56 AM EDT [facility] Blood PERIPHERAL BLOOD SPECIMEN / Unknown Venipuncture / Unknown 04/18/2025 7:10 AM EDT 04/18/2025 7:22 AM EDT Chuy Hernandez MD LAB BLOOD ORDERABLES Final R [facility] [address] [place] [address], [place] * (ABNORMAL) Basic Metabolic Panel (04/18/2025 7:10 AM EDT) Sodium 141 135 - 147 mmol/L 04/18/2025 7:56 AM EDT [facility] Potassium 3.6 3.5 - 5.4 mmol/L 04/18/2025 7:56 AM EDT [facility] Chloride 106 96 - 108 mmol/L 04/18/2025 7:56 AM EDT [facility] Total CO2/Bicarbonat e 22 22 - 32 mmol/L 04/18/2025 7:56 AM EDT [facility] Anion Gap 13 10 - 18 mmol/L 04/18/2025 7:56 AM EDT [facility] BUN 34(H) 6 - 20 mg/dL 04/18/2025 7:56 AM EDT [facility] Creatinine, Blood 1.10 0.50 - 1.20 mg/dL 04/18/2025 7:56 AM EDT [facility] Glucose, Blood 97 70 - 100 mg/dL 04/18/2025 7:56 AM EDT [facility] Calcium 9.3 8.4 - 10.3 mg/dL 04/18/2025 7:56 AM EDT [facility] Blood PERIPHERAL BLOOD SPECIMEN / Unknown Venipuncture / Unknown 04/18/2025 7:10 AM EDT 04/18/2025 7:22 AM EDT us Chuy Hernandez MD LAB BLOOD ORDERABLES Final R esult [facility] [address] [place] [address], * (ABNORMAL) CBC (04/18/2025 7:10 AM EDT) WBC 9.19 4.00 - 10.00 K/uL 04/18/2025 7:38 AM EDT [facility] RBC 4.04(L) 4.60 - 6.10 M/uL 04/18/2025 7:38 AM EDT [facility] Hemoglobin 12.6(L) 13.7 - 17.5 g/dL 04/18/2025 7:38 AM EDT [facility] Hematocrit 37.0(L) 40.0 - 51.0 % 04/18/2025 7:38 AM EDT [facility] MCV 92 82 - 98 fL 04/18/2025 7:38 AM EDT [facility] MCH 31.2 26.0 - 32.0 pg 04/18/2025 7:38 AM EDT [facility] MCHC 34.1 32.0 - 37.0 g/dL 04/18/2025 7:38 AM EDT [facility] RDW 13.2 10.5 - 15.5 % 04/18/2025 7:38 AM EDT [facility] RDW-SD 43.9 35.1 - 46.3 fL 04/18/2025 7:38 AM EDT [facility] Platelet Count 257 150 - 400 K/uL 04/18/2025 7:38 AM EDT [facility] Nucleated RBC 0 <=0 #/100 WBC 04/18/2025 7:38 AM EDT [facility] Blood PERIPHERAL BLOOD SPECIMEN / Unknown Venipuncture / Unknown 04/18/2025 7:10 AM EDT 04/18/2025 7:19 AM EDT Chuy Hernandez MD LAB BLOOD ORDERABLES Final R esult Performing Organization Address City/[facility]/ZIP Co de Phone Number [facility] [address] [place] [address], [place] * (ABNORMAL) C-Reactive Protein (04/17/2025 7:40 AM EDT) C-Reactive Protein (CRP) 7.5(H) 0.0 - 5.0 mg/L 04/17/2025 1:38 PM EDT [facility] Blood PERIPHERAL BLOOD SPECIMEN / Unknown Venipuncture / Unknown 04/17/2025 7:40 AM EDT 04/17/2025 7:53 AM EDT Bonifacio Agudelo MD LAB BLOOD ORDERABLES Final Resul t Performing Organization Address City/[facility] Co de Phone Number [facility] [address] [place] [address], [place] * Vitamin D, 25-OH (04/17/2025 7:40 AM EDT) `Vitamin D 25-OH Level 38 30 - 60 ng/mL 04/17/2025 3:33 PM EDT [facility] Blood PERIPHERAL BLOOD SPECIMEN / Unknown Venipuncture / Unknown 04/17/2025 7:40 AM EDT 04/17/2025 7:53 AM EDT Bonifacio Agudelo MD LAB BLOOD ORDERABLES Final Resul t [facility] [address] [place] [address], [place] * Magnesium (04/17/2025 7:40 AM EDT) Magnesium, Blood 2.1 1.6 - 2.6 mg/dL 04/17/2025 8:27 AM EDT [facility] Blood PERIPHERAL BLOOD SPECIMEN / Unknown Venipuncture / Unknown 04/17/2025 7:40 AM EDT 04/17/2025 7:53 AM EDT Chuy Hernandez MD LAB BLOOD ORDERABLES Final R esult [facility] [address] [place] [address], [place] * Phosphorus (04/17/2025 7:40 AM EDT) Phosphorus 3.8 2.7 - 4.5 mg/dL 04/17/2025 8:27 AM EDT [facility] Blood PERIPHERAL BLOOD SPECIMEN / Unknown Venipuncture / Unknown 04/17/2025 7:40 AM EDT 04/17/2025 7:53 AM EDT Chuy Hernandez MD LAB BLOOD ORDERABLES Final R esult Performing Organization Address City/[facility]/ZIP Co de Phone Number [facility] [address] [place] [address], [place] * (ABNORMAL) Basic Metabolic Panel (04/17/2025 7:40 AM EDT) Sodium 143 135 - 147 mmol/L 04/17/2025 8:27 AM EDT [facility] Potassium 4.0 3.5 - 5.4 mmol/L 04/17/2025 8:27 AM EDT [facility] Chloride 107 96 - 108 mmol/L 04/17/2025 8:27 AM EDT [facility] Total CO2/Bicarbonat e 25 22 - 32 mmol/L 04/17/2025 8:27 AM EDT [facility] Anion Gap 11 10 - 18 mmol/L 04/17/2025 8:27 AM EDT [facility] BUN 27(H) 6 - 20 mg/dL 04/17/2025 8:27 AM EDT [facility] Creatinine, Blood 1.10 0.50 - 1.20 mg/dL 04/17/2025 8:27 AM EDT [facility] Glucose, Blood 86 70 - 100 mg/dL 04/17/2025 8:27 AM EDT [facility] Calcium 9.2 8.4 - 10.3 mg/dL 04/17/2025 8:27 AM EDT [facility] Blood PERIPHERAL BLOOD SPECIMEN / Unknown Venipuncture / Unknown 04/17/2025 7:40 AM EDT 04/17/2025 7:53 AM EDT us Chuy Hernandez MD LAB BLOOD ORDERABLES Final R esult [facility] [address] [place] [address], * (ABNORMAL) CBC (04/17/2025 7:40 AM EDT) WBC 9.29 4.00 - 10.00 K/uL 04/17/2025 8:06 AM EDT [facility] RBC 3.84(L) 4.60 - 6.10 M/uL 04/17/2025 8:06 AM EDT [facility] Hemoglobin 12.1(L) 13.7 - 17.5 g/dL 04/17/2025 8:06 AM EDT [facility] Hematocrit 36.3(L) 40.0 - 51.0 % 04/17/2025 8:06 AM EDT [facility] MCV 95 82 - 98 fL 04/17/2025 8:06 AM EDT [facility] MCH 31.5 26.0 - 32.0 pg 04/17/2025 8:06 AM EDT [facility] MCHC 33.3 32.0 - 37.0 g/dL 04/17/2025 8:06 AM EDT [facility] RDW 13.9 10.5 - 15.5 % 04/17/2025 8:06 AM EDT [facility] RDW-SD 47.5(H) 35.1 - 46.3 fL 04/17/2025 8:06 AM EDT [facility] Platelet Count 229 150 - 400 K/uL 04/17/2025 8:06 AM EDT [facility] Nucleated RBC 0 <=0 #/100 WBC 04/17/2025 8:06 AM EDT [facility] Blood PERIPHERAL BLOOD SPECIMEN / Unknown Venipuncture / Unknown 04/17/2025 7:40 AM EDT 04/17/2025 7:53 AM EDT Chuy Hernandez MD LAB BLOOD ORDERABLES Final R esult [facility] [address] [place] [address], [place] * XR Chest 2 VW (04/16/2025 [...] electronically signed on Apr 16 2025 05:11PM Carter Cerda MD IMG DIAGNOSTIC IMAGING ORDERABL ES Final Result * Covid/Flu/RSV (Rapid) (04/16/2025 9:24 AM EDT) Coronavirus SARS-CoV-2 Negative Negative 04/16/2025 10:05 AM EDT [facility] Influenza A Negative Not Detected by PCR 04/16/2025 10:05 AM EDT [facility] Influenza B Negative Not Detected by PCR 04/16/2025 10:05 AM EDT [facility] RSV by PCR Negative Not Detected by PCR 04/16/2025 10:05 AM EDT [facility] Respiratory SWAB OF INTERNAL NOSE / Unknown Collection / Unknown 04/16/2025 9:24 AM EDT 04/16/2025 9:25 AM EDT Narrative [facility] - 04/16/2025 10:05 AM EDT Test performed by GeneXpert real-time PCR. Lela Martinez MD BODY FLUIDS AND STOOLS FAIZAN DURANT Final Result [facility] [address] [place] [address], * Drug Screen, Urine (04/16/2025 6:54 AM EDT) Amphetamines Screen, Urine Presumptive Negative Presumptive Negative 04/16/2025 7:58 AM EDT [facility] Comment:[facility] amphetamine cu t-off is 1000 ng/mL. Barbiturates Screen, Urine Presumptive Negative Presumptive Negative 04/16/2025 7:58 AM EDT [facility] Comment:[facility] Barbiturate cu t-off of 200 ng/mL. Benzodiazepine Screen, Urine Presumptive Negative Presumptive Negative 04/16/2025 7:58 AM EDT [facility] Comment: [facility] Benzodiazepine cut-off is 300 ng/mL BENZODIAZEPINE IMMUNOASSAY SCREEN DOES NOT DETECT SOME DRUGS, INCLUDING LORAZEPAM, CLONAZEPAM, AND FLUNITRAZEPAM Cannabinoids Screen, Urine Presumptive Negative Presumptive Negative 04/16/2025 7:58 AM EDT [facility] Comment:[facility] Cannabinoids c ut-off is 50 ng/mL. Cocaine Metabolite Screen, Urine Presumptive Negative Presumptive Negative 04/16/2025 7:58 AM EDT [facility] Comment:[facility] Cocaine cut-of f is 300 ng/mL. Fentanyl Screen, Urine Presumptive Negative Presumptive Negative 04/16/2025 7:58 AM EDT [facility] Comment: [facility] Fentanyl cut-off 5.0 ng/mL. FENTANYL ASSAY DETECTS FENTANYL AND NORFENTANYL. FALSE POSITIVE RENTANYL RESULTS MAY OCCUR IN PATIENTS TAKING RISPERIDONE, TRAZADONE, AND LABETALOL. Methadone Screen, Urine Presumptive Negative Presumptive Negative 04/16/2025 7:58 AM EDT [facility] Comment: [facility] Methadone cut-off is 300 ng/mL. METHADONE ASSAY DETECTS METHADONE (NOT OTHER OPIATES/OPIOIDS; QUETIAPINE(SEROQUEL) MAY CAUSE A FALSE POSITIVE RESULT. Opiates Screen, Urine Presumptive Negative Presumptive Negative 04/16/2025 7:58 AM EDT [facility] Comment: [facility] Opiate cut-off is 300 ng/mL. OPIATE ASSAY DOES NOT RELIABLY DETECT SYNTHETIC OPIOIDS;SUCH METHADONE, OXYCODONE, FENTANYL, BUPRENORPHINE, TRAMADOL,;NALOXONE, MEPERIDINE. SEE ONLINE LAB MANUAL FOR DETAILS Oxycodone Screen, Urine Presumptive Negative Presumptive Negative 04/16/2025 7:58 AM EDT [facility] Comment:[facility] Oxycodone cut- off is 100 ng/mL. Urine URINE SPECIMEN / Unknown Collection / Unknown 04/16/2025 6:54 AM EDT 04/16/2025 7:17 AM EDT us Dane Ayala MD URINE ORDERABLES Fin al Result [facility] [address] [place] [address], * Urine Micro Hold (04/16/2025 6:54 AM EDT) Micro Urine Reflex Hold Received 04/16/2025 10:01 AM EDT [facility] AP Urine URINE SPECIMEN / Unknown Collection / Unknown 04/16/2025 6:54 AM EDT 04/16/2025 7:12 AM EDT us Dane Ayala MD URINE ORDERABLES Fin al Result [facility] AP [address] [place] [address], [place] * (ABNORMAL) Urinalysis with Reflex to Urine Culture (04/16/2025 6:54 AM EDT) Color, Urine Straw Yellow, Colorless, Straw 04/16/2025 9:31 AM EDT [facility] Clarity, Urine Clear Clear 04/16/2025 9:31 AM EDT [facility] pH, Urine 7.5 5.0 - 8.0 04/16/2025 9:31 AM EDT [facility] Protein, Urine Negative Negative 04/16/2025 9:31 AM EDT [facility] Glucose, Urine Negative Negative 04/16/2025 9:31 AM EDT [facility] Ketone, Urine Negative Negative 04/16/2025 9:31 AM EDT [facility] Bilirubin, Urine Negative Negative 04/16/2025 9:31 AM EDT [facility] Urobilinogen, Urine Normal 0.2-1.0 mg/dL 04/16/2025 9:31 AM EDT [facility] Blood, Urine Negative Negative 04/16/2025 9:31 AM EDT [facility] Leukocyte Esterase, Urine Negative Negative 04/16/2025 9:31 AM EDT [facility] Nitrite, Urine Negative Negative 04/16/2025 9:31 AM EDT [facility] Specific [place], Urine 1.024 1.001 - 1.050 04/16/2025 9:31 AM EDT [facility] White Blood Cells, Urine <1 0 - 5 /hpf 04/16/2025 9:31 AM EDT [facility] Red Blood Cells, Urine 1 0 - 2 /hpf 04/16/2025 9:31 AM EDT [facility] Mucous Threads Rare(A) None Seen 04/16/2025 9:31 AM EDT [facility] Urine URINE SPECIMEN / Unknown Collection / Unknown 04/16/2025 6:54 AM EDT 04/16/2025 7:13 AM EDT us Dane Ayala MD URINE ORDERABLES Fin al Result Performing Organization Address City/[facility]/ZIP Co de Phone Number [facility] [address] [place] [address], [place] * CK (Creatine Kinase) (04/15/2025 11:33 PM EDT) Creatine Kinase Total (CK) 50 47 - 322 U/L 04/16/2025 12:19 AM EDT [facility] Blood PERIPHERAL BLOOD SPECIMEN / Unknown Venipuncture / Unknown 04/15/2025 11:33 PM EDT 04/15/2025 11:38 PM EDT us Dane Ayala MD LAB BLOOD ORDERABLES Final Result Performing Organization Address [facility] Phone Number [facility] [address] [place] [address], [place] * (ABNORMAL) hs-Troponin T, 1hr (04/15/2025 11:33 PM EDT) Troponin T HS 83(H) <=19 ng/L 04/16/2025 12:19 AM EDT [facility] Comment: hs-cTnT<=19 ng/L in 99% of healthy individuals. hs-cTnT values of 30, 52, 100 and 1000 ng/L correspond to approximately CHARLIE Gen 4 of 0.01, 0.03, 0.1 and 1 ng/mL Blood PERIPHERAL BLOOD SPECIMEN / Unknown Venipuncture / Unknown 04/15/2025 11:33 PM EDT 04/15/2025 11:38 PM EDT us Dane Ayala MD LAB BLOOD ORDERABLES Final Result Performing Organization Address [facility] Co de Phone Number [facility] [address] [place] [address], [place] * Ammonia (04/15/2025 11:33 PM EDT) Ammonia umol/L 11 10 - 60 umol/L 04/16/2025 12:21 AM EDT [facility] Blood PERIPHERAL BLOOD SPECIMEN / Unknown Venipuncture / Unknown 04/15/2025 11:33 PM EDT 04/15/2025 11:37 PM EDT us Dane Ayala MD LAB BLOOD ORDERABLES Final Result [facility] [address] [place] [address], [place] * Lactic Acid with 3 Hour Reflex (04/15/2025 11:33 PM EDT) Pathologist [facility] Lactic Acid 0.9 0.5 - 2.0 mmol/L 04/15/2025 11:40 PM EDT [facility] Blood PERIPHERAL BLOOD SPECIMEN / Unknown Venipuncture / Unknown 04/15/2025 11:33 PM EDT 04/15/2025 11:36 PM EDT us Dane Ayala MD LAB BLOOD ORDERABLES Final Result Performing Organization Address City/[facility]/ZIP Co de Phone Number [facility] [address] [place] [address], [place] * BB Retype (04/15/2025 11:33 PM EDT) Pathologist [facility] BB RETYPE Received 04/16/2025 8:01 AM EDT [facility] BLOOD BANK Blood Venipuncture / Unknown 04/15/2025 11:33 PM EDT 04/15/2025 11:48 PM EDT us Dane Ayala MD BLOOD BANK TEST ORDE RABLES Final Result Performing Organization Address City/[facility]/ZIP Co de Phone Number [facility] BLOOD [facility] [address] [place] [address], [place] * MRI Brain Without Contrast (04/15/2025 11:19 PM EDT) Anatomical Region Laterality Modality Head Magnetic Resonan ce 04/15/2025 11:4 7 PM EDT Impressions 04/16/2025 11:44 AM EDT No acute intracranial abnormality. Specifically, no acute or recent infarction. WET READ: WET READ:~No acute intracranial abnormality. Angel Luis Tompkins [id number]. BY ELECTRONICALLY SIGNING THIS REPORT, I THE ATTENDING PHYSICIAN ATTEST THAT I HAVE REVIEWED THE IMAGES FOR THE ABOVE PROCEDURE(S) AND AGREE WITH THE FINDINGS DOCUMENTED. MD Deny Riley MD, electronically signed on Apr 16 2025 11:44AM Narrative 04/16/2025 11:44 AM EDT EXAMINATION: MR BRAIN WO CONTRAST. [id number] MR HEAD. INDICATION: Stroke protocol. DR. DANE [...] - 04/16/2025 EXAMINATION: MR BRAIN WO CONTRAST. [id number] MR HEAD. INDICATION: Stroke protocol. DR. DANE [...] READ:~No acute intracranial abnormality. Angel Luis Tompkins [phone] [id number]. BY ELECTRONICALLY SIGNING THIS REPORT, I THE ATTENDING PHYSICIAN ATTESTTHAT I HAVE REVIEWED THE IMAGES FOR THE ABOVE PROCEDURE(S) AND AGREE WITHTHE FINDINGS DOCUMENTED. MD Deny Riley MD, electronically signed on Apr 16 2025 11:44AM Dane Ayala MD IMG MRI ORDERABLES F inal Result * (ABNORMAL) Toxicology Screen, Blood (04/15/2025 9:18 PM EDT) Pathologist [facility] Acetaminophen Result,Blood <5 <5 =Not Detected ug/mL 04/15/2025 11:37 PM EDT [facility] Alcohol <10 <10 = Not Detected mg/dL 04/15/2025 11:37 PM EDT [facility] Salicylate Level, Blood <1(L) <4 = Not Detected mg/dL 04/15/2025 11:37 PM EDT [facility] Blood PERIPHERAL BLOOD SPECIMEN / Unknown Venipuncture / Unknown 04/15/2025 9:18 PM EDT 04/15/2025 10:29 PM EDT Dane Ayala MD LAB BLOOD ORDERABLES Final Result [facility] [address] [place] [address], * (ABNORMAL) hs-Troponin T (reflex 1hr, 3hr) (04/15/2025 9:18 PM EDT) Pathologist [facility] Troponin T HS 85(H) <=19 ng/L 04/15/2025 10:59 PM EDT [facility] Comment: hs-cTnT<=19 ng/L in 99% of healthy individuals. hs-cTnT values of 30, 52, 100 and 1000 ng/L correspond to approximately CHARLIE Gen 4 of 0.01, 0.03, 0.1 and 1 ng/mL Blood PERIPHERAL BLOOD SPECIMEN / Unknown Venipuncture / Unknown 04/15/2025 9:18 PM EDT 04/15/2025 10:29 PM EDT us Dane Ayala MD LAB BLOOD ORDERABLES Final Result [facility] [address] [place] [address], [place] * XR Chest 2 VW (04/15/2025 [...] Heart Rate 98 BPM EKG BUR MUSE [place] Interval 156 ms EKG BUR MUSE QRSD Interval 108 ms EKG BUR MUSE QT Interval 392 ms EKG BUR MUSE QTC Interval 500 ms EKG BUR MUSE P [place] 63 degrees EKG BUR MUSE R [place] -23 degrees EKG BUR MUSE T Wave [place] 65 degrees EKG BUR MUSE 04/15/2025 6:53 [...] for LVH, may be normal variant ( [place] product) Prolonged QT interval Abnormal ECG When compared with ECG of 14-Apr-2024 19:05, No significant change was found Dane Ayala MD ECG ORDERABLES Patricia l Result EKG BUR MUSE [address] [place] [id number] * CT Angiogram Head Neck Code Stroke [...] large vascular territory infarction or hemorrhage. ~~Patent sycuan of [place] without evidence of substantial stenosis or occlusion.~~Patent bilateral cervical carotid and vertebral arteries without evidence of stenosis >70% by NASCET criteria, occlusion, or dissection .~~Full read pending by neuroradiology. ~ Valentin Trina [id number]: BY ELECTRONICALLY SIGNING THIS REPORT, I THE ATTENDING PHYSICIAN ATTEST THAT I HAVE REVIEWED THE IMAGES FOR THE ABOVE PROCEDURE(S) AND AGREE WITH THE FINDINGS DOCUMENTED. Red Pavon MD, electronically signed on Apr 16 2025 10:13AM Narrative 04/16/2025 10:13 AM EDT EXAMINATION: CTA HEAD/NECK STROKE [id number] CT HEAD NECK. INDICATION: 69-year-old male with [...] normal. CTA HEAD: The vessels of the sycuan of [place] and their principal intracranial branches [...] MD - 04/16/2025 EXAMINATION: CTA HEAD/NECK STROKE [id number] CT HEAD NECK. INDICATION: 69-year-old male with [...] normal. CTA HEAD: The vessels of the sycuan of [place] and their principal intracranialbranches are [...] acutelarge vascular territory infarction or hemorrhage. ~~Patent sycuan of[place] without evidence of substantial stenosis or occlusion.~~Patentbilateral cervical carotid and vertebral arteries without evidence of stenosis >70% by NASCET criteria,occlusion, or dissection .~~Full read pending by neuroradiology. ~ Valentin Mena [id number]: BY ELECTRONICALLY SIGNING THIS REPORT, I THE ATTENDING PHYSICIAN ATTESTTHAT I HAVE REVIEWED THE IMAGES FOR THE ABOVE PROCEDURE(S) AND AGREE WITHTHE FINDINGS DOCUMENTED. Red Pavon MD, electronically signed on Apr 16 2025 10:13AM Dane Ayala MD IMG CT ORDERABLES Fi nal Result * TSH (04/15/2025 6:17 PM EDT) [facility] TSH 1.50 0.27 - 4.20 uIU/mL 04/15/2025 10:40 PM EDT [facility] Blood PERIPHERAL BLOOD SPECIMEN / Unknown Venipuncture / Unknown 04/15/2025 6:17 PM EDT 04/15/2025 6:20 PM EDT Dane Ayala MD LAB BLOOD ORDERABLES Final Result [facility] [address] [place] [address], * (ABNORMAL) CBC and Differential (04/15/2025 6:17 PM EDT) [facility] WBC 9.11 4.00 - 10.00 K/uL 04/15/2025 6:25 PM EDT [facility] RBC 4.18(L) 4.60 - 6.10 M/uL 04/15/2025 6:25 PM EDT [facility] Hemoglobin 13.2(L) 13.7 - 17.5 g/dL 04/15/2025 6:25 PM EDT [facility] Hematocrit 39.6(L) 40.0 - 51.0 % 04/15/2025 6:25 PM EDT [facility] MCV 95 82 - 98 fL 04/15/2025 6:25 PM EDT [facility] MCH 31.6 26.0 - 32.0 pg 04/15/2025 6:25 PM T [facility] MCHC 33.3 32.0 - 37.0 g/dL 04/15/2025 6:25 PM [facility] RDW 13.9 10.5 - 15.5 % 04/15/2025 6:25 PM T [facility] RDW-SD 48.0(H) 35.1 - 46.3 fL 04/15/2025 6:25 PM T [facility] Platelet Count 229 150 - 400 K/uL 04/15/2025 6:25 PM [facility] Nucleated RBC 0 <=0 #/100 WBC 04/15/2025 6:25 PM [facility] Neutrophil 77.6(H) 34.0 - 71.0 % 04/15/2025 6:25 PM T [facility] Lymphocyte 13.5(L) 19.0 - 53.0 % 04/15/2025 6:25 PM [facility] Monocyte 7.8 5.0 - 13.0 % 04/15/2025 6:25 PM [facility] Eosinophil 0.0(L) 1.0 - 7.0 % 04/15/2025 6:25 PM [facility] Basophil 0.3 0.0 - 1.0 % 04/15/2025 6:25 PM [facility] Immature Granulocyte ([place], Myelo, Promyelocyte) 0.8(H) 0.0 - 0.6 % 04/15/2025 6:25 PM [facility] Absolute Neutrophil Count 7.07(H) 1.60 - 6.10 K/uL 04/15/2025 6:25 PM [facility] Absolute Lymphocyte Count 1.23 1.20 - 3.70 K/uL 04/15/2025 6:25 PM [facility] Absolute Monocyte Count 0.71 0.20 - 0.80 K/uL 04/15/2025 6:25 PM [facility] Absolute Eosinophil Count 0.00(L) 0.04 - 0.54 K/uL 04/15/2025 6:25 PM EDT [facility] Absolute Basophil Count 0.03 0.01 - 0.08 K/uL 04/15/2025 6:25 PM EDT [facility] Absolute Immature Granulocyte ([place], Myelo, Promyelocyte) 0.07 0.00 - 0.09 K/uL 04/15/2025 6:25 PM EDT [facility] Blood PERIPHERAL BLOOD SPECIMEN / Unknown Venipuncture / Unknown 04/15/2025 6:17 PM EDT 04/15/2025 6:20 PM EDT Dane Ayala MD LAB BLOOD ORDERABLES Final Result Performing Organization Address City/[facility]/ZIP Co de Phone Number [facility] [address] [place] [address], [place] * Type and Screen (04/15/2025 6:17 PM EDT) ABO and Rh B POS 04/15/2025 7:42 PM EDT [facility] BLOOD [facility] Antibody Screen NEG 7:42 PM EDT [facility] BLOOD [facility] TS Expiration Date 04/18/2025 23:59 04/15/2025 7:42 PM EDT [facility] Blood Venipuncture / Unknown 04/15/2025 6:17 PM EDT 04/15/2025 6:41 PM EDT Dane Ayala MD BLOOD BANK TEST ORDE RABLES Final Result Performing Organization Address City/[facility]/ZIP Co de Phone Number [address] [address], [place] * (ABNORMAL) Troponin (04/15/2025 6:17 PM EDT) Troponin T HS 82(H) <=19 ng/L 04/15/2025 6:59 PM EDT [facility] Comment: hs-cTnT<=19 ng/L in 99% of healthy individuals. hs-cTnT values of 30, 52, 100 and 1000 ng/L correspond to approximately CHARLIE Gen 4 of 0.01, 0.03, 0.1 and 1 ng/mL Blood PERIPHERAL BLOOD SPECIMEN / Unknown Venipuncture / Unknown 04/15/2025 6:17 PM EDT 04/15/2025 6:20 PM EDT us Dane Ayala MD LAB BLOOD ORDERABLES Final Result Performing Organization Address [facility] Co de Phone Number [facility] [address] [place] [address], [place] * (ABNORMAL) APTT (04/15/2025 6:17 PM EDT) PTT 42(H) 25 - 36 s 04/15/2025 7:35 PM EDT [facility] Blood PERIPHERAL BLOOD SPECIMEN / Unknown Venipuncture / Unknown 04/15/2025 6:17 PM EDT 04/15/2025 6:20 PM EDT us Dane Ayala MD LAB BLOOD ORDERABLES Final Result Performing Organization Address [facility] de Phone Number [facility] [address] [place] [address], [place] * Prothrombin Time - INR (04/15/2025 6:17 PM EDT) Prothrombin Time 11.6 9.4 - 12.5 s 04/15/2025 7:35 PM EDT [facility] INR 1.1 0.9 - 1.1 04/15/2025 7:35 PM EDT [facility] Blood PERIPHERAL BLOOD SPECIMEN / Unknown Venipuncture / Unknown 04/15/2025 6:17 PM EDT 04/15/2025 6:20 PM EDT us Dane Ayala MD LAB BLOOD ORDERABLES Final Result Performing Organization Address [facility] Co de Phone Number [facility] [address] [place] [address], * (ABNORMAL) Comprehensive Metabolic Panel (04/15/2025 6:17 PM EDT) Sodium 142 135 - 147 mmol/L 04/15/2025 6:59 PM EDT [facility] Potassium 3.9 3.5 - 5.4 mmol/L 04/15/2025 6:59 PM EDT [facility] Chloride 103 96 - 108 mmol/L 04/15/2025 6:59 PM EDT [facility] Total CO2/Bicarbonate 27 22 - 32 mmol/L 04/15/2025 6:59 PM EDT [facility] Anion Gap 12 10 - 18 mmol/L 04/15/2025 6:59 PM T [facility] BUN 25(H) 6 - 20 mg/dL 04/15/2025 6:59 PM EDT [facility] Creatinine, Blood 1.10 0.50 - 1.20 mg/dL 04/15/2025 6:59 PM T [facility] Glucose, Blood 104(H) 70 - 100 mg/dL 04/15/2025 6:59 PM EDT [facility] Calcium 9.8 8.4 - 10.3 mg/dL 04/15/2025 6:59 PM T [facility] Total Protein 6.8 6.4 - 8.3 g/dL 04/15/2025 6:59 PM T [facility] Albumin, Blood 3.9 3.5 - 5.2 g/dL 04/15/2025 6:59 PM EDT [facility] Globulin Result 2.9 2.0 - 4.0 g/dL 04/15/2025 6:59 PM EDT [facility] AST (SGOT) 19 0 - 40 U/L 04/15/2025 6:59 PM T [facility] ALT (SGPT) <5 0 - 40 U/L 04/15/2025 6:59 PM EDT [facility] Alkaline Phosphatase 182(H) 40 - 130 U/L 04/15/2025 6:59 PM EDT [facility] Total Bilirubin 0.4 0.0 - 1.5 mg/dL 04/15/2025 6:59 PM EDT [facility] Estimated GFR(CKD-EPI) 74 mL/min/BSA 04/15/2025 6:59 PM EDT [facility] Blood PERIPHERAL BLOOD SPECIMEN / Unknown Venipuncture / Unknown 04/15/2025 6:17 PM EDT 04/15/2025 6:20 PM EDT us Dane Ayala MD LAB BLOOD ORDERABLES Final Result [facility] [address] [place] [address], * (ABNORMAL) POCT Glucose (04/15/2025 6:15 PM EDT) [facility] Signature Glucose, POC 110(H) 70 - 100 mg/dL 04/15/2025 6:15 PM EDT [facility] Comment: @Serial Pcgybi=[id number] @Appointment Scheduler VI=[id number] Blood 04/15/2025 6:15 PM EDT 04/15/2025 6:15 PM EDT us Dane Ayala MD POCT ORDERABLES - DE VICE Final Result [facility] [address] [place] [address], documented in this encounter Visit Diagnoses Diagnosis [...] due to inhalation of food or vomitus longterm current use of therapeutic drug Abnormal electrocardiography [...] on Sun05/28/25 at 0800, Last dose on Sun05/30/25 at 0400 Given 05/30/2025 5:43 AM EDT [...] Sun04/20/25 at 2200, Until Discontinued Given 06/24/2025 9:08 [...] 10 mg, Rectal, Daily PRN, Starting on 05/02/25 at 1623, Until Kristy 06/25/25 at 2133, constipation Given 05/02/2025 8:43 PM [...] Oral, 3 times daily PRN, Starting on 04/18/25 at 1443, Until Sun05/22/25 at 1110, indigestion, [...] Discontinued Given 04/16/2025 9:11 AM EDT 2 tablet s carbidopa-levodopa (SINEMET) 25-100 mg per tablet 2 tablet 2 tablet, G-tube, 3 times daily, First dose (after last modification) on Kristy 04/16/25 at 1600, Until Discontinued Given 05/10/2025 8:32 [...] and approved by Antimicrobial Stewardship provider (pager [phone])., Select the name of the APPROVING AST PROVIDER: Jaziel Miller Routine New Bag 2025 5:54 PM EDT [...] and approved by Antimicrobial Stewardship provider (pager [phone])., Select the name of the APPROVING AST PROVIDER: Jaziel Miller Routine New Bag 06/02/2025 12:39 PM EDT [...] (after last modification) on Kristy 04/16/25 at 2100, Until Discontinued Given 04/19/2025 1:27 [...] modification) on Sun05/02/25 at 0900, Until Discontinued Given 06/25/2025 9:41 [...] Every 24 hours scheduled, First dose on Sun05/28/25 at 1100, For 9 days Given 05/29/2025 [...] mg, G-tube, At bedtime, First dose on Kristy 04/16/25 at 2100, Until Discontinued Given 06/17/2025 9:20 [...] mg, G-tube, At bedtime, First dose on Sun06/01/25 at 2100, Until Discontinued Given 06/03/2025 8:37 [...] modification) on Sun06/04/25 at 2100, Until Discontinued Given 06/24/2025 9:07 PM EDT 3 mg Given 06/23/2025 9:21 PM EDT 3 mg Given 06/22/2025 10:22 PM EDT 3 mg haloperidol lactate (HALDOL) injection 2 mg 2 mg, Intramuscular, Once as needed, 1 dose, Starting on Sun05/21/25 at 2158, Until 05/23/25 at 0537, agitation [...] hours, First dose (after last modification) on Sun05/28/25 at 1000, Until Discontinued Given 06/02/2025 9:24 [...] daily, First dose (after last modification) on 8/16/25 at 0530, Apply to R leg rash [...] ADS Override Pull 1 dose, Starting on Sun /13/25 at 0106, Until Sun05/03/25 at 0110 LORazepam [...] 0.5 mg, Intramuscular, Once, 1 dose, On Kristy 05/07/25 at 1930 Given 05/07/2025 6:35 PM EDT [...] mg, Intravenous, Once, 1 dose, On Kristy 04/16/25 at 0030 Given 04/16/2025 12:25 AM EDT [...] and approved by Antimicrobial Stewardship provider (pager [phone])., Select the name of the APPROVING AST [...] and approved by Antimicrobial Stewardship provider (pager [phone])., Select the name of the APPROVING AST PROVIDER: Francisco Vasquez 05/24/2025 7:00 PM EDT 200 mg sennosides [...] Nare, Every 2 hour PRN, Starting on [place] 06/14/25 at 1613, Until Kristy 06/25/25 at 2133, irritation sodium chloride 3 % nebulizer solution 4 mL 4 mL, Nebulization, Every 4 hours PRN, Starting on Sun05/28/25 at 1435, Until Kristy 06/25/25 at 2133, other Given 05/28/2025 5:22 PM [...] mg, G-tube, At bedtime, First dose on Kristy 04/16/25 at 2100, Until Discontinued Given 04/19/2025 11:19 [...] modification) on Sun06/08/25 at 2200, Until Discontinued 824 (Given - Provider: Rosalinda Montano RN)1640 (Given - Provider: Rosalinda Montano RN)2121 (Given - Provider: Madelyn Bailey RN) 0917 (Given - Provider: Yu Gunderson RN)1633 (Given - Provider: Yu Gunderson RN)2112 (Given - Provider: Tiffanie Rush RN) 0941 (Given - Provider: Yu Gunderson RN)1536 (Given - Provider: Yu Gunderson, VITALIY) atorvaSTATin (LIPITOR) tablet 20 mg 20 mg, G-tube, At bedtime, First dose (after last modification) on Sun04/20/25 at 2200, Until Discontinued 2119 (Given - Provider: Madelyn Bailey RN) 2107 (Given - Provider: Tiffanie Rush, RN) 2100 (Canceled Entry - Provider: Automatic Discharge [...] RN) 2106 (Given - Provider: Tiffanie Rush, VITALIY) cloZAPine (CLOZARIL) tablet 225 mg 225 mg, G-tube, At bedtime, First dose (after last modification) on Sun06/25/25 at 2100, Until Discontinued 2100 (Canceled Entry - Provider: Automatic Discharge Provider - Comment: Automatically canceled at discontinue of medication order) cloZAPine (CLOZARIL) tablet 25 mg 25 mg, G-tube, Daily, First dose (after last modification) on Sun05/02/25 at 0900, Until Discontinued 824 (Given - Provider: Rosalinda Montano RN) 917 (Given - Provider: Yu Gunderson, VITALIY) 09 (Given - Provider: Yu Gunderson, VITALIY) enoxaparin (LOVENOX) injection 40 mg 40 mg, Subcutaneous, Every 24 hours scheduled, First dose (after last modification) on Sun04/20/25 at 2200, Until Discontinued 2133 (Given - Provider: Madelyn Bailey RN) 2105 (Given - Provider: Tiffanie Rush, VITALIY) 2099 (Canceled Entry - Provider: Automatic Discharge [...] RN)2107 (Given - Provider: Tiffanie Rush, VITALIY) 940 (Given - Provider: Yu Gunderson RN)2099 (Canceled Entry - Provider: Automatic Discharge Provider - Comment: Automatically canceled at discontinue of medication order) gabapentin (NEURONTIN) capsule 100 mg 100 mg, G-tube, Every morning, First dose (after last modification) on Sun05/20/25 at 0900, Until Discontinued 824 (Given - Provider: Rosalinda Montano RN) 917 (Given - Provider: Yu Gunderson RN) 09 (Given - Provider: Yu Gunderson RN) gabapentin [...] 0940 (Given - Provider: Yu Gunderson RN) haloperidoL (HALDOL) tablet 3 mg(Linked Group 1) 3 mg, G-tube, At bedtime, First dose (after last modification) on Sun06/04/25 at 2100, Until Discontinued 2120 (Given - Provider: Madelyn Bailey RN) 2106 (Given - Provider: Tiffanie Rush, VITALIY) 2099 (Canceled Entry - Provider: Automatic Discharge Provider - Comment: Automatically canceled at discontinue of medication order) ketoconazole (NIZORAL) 2 % cream Topical, 2 times daily, First dose (after last modification) on 06/06/25 at 0530, Apply to R leg rash 08 (Given - Provider: Rosalinda Montano RN)2133 (Given - Provider: Madelyn Bailey RN) 917 (Given - Provider: Yu Gunderson, VITALIY)2105 (Given - Provider: Tiffanie Rush, VITALIY) 0941 (Given - Provider: Yu Gunderson RN)2099 (Canceled [...] shift)2119 (Given - Provider: Madelyn Bailey RN) 917 (Given - Provider: Yu Gunderson, VITALIY)2056 (Not Given - Provider: Tiffanie Rush RN - Reason: Other - Indicate below - Comment: large BM prev shift per report) 0940 (Given - Provider: Yu Gunderson RN)2099 (Canceled [...] 0051 (Patch Removed - Provider: Madelyn Bailey RN)1312 (Patch Applied - Provider: Yu Gunderson RN) [...] 0051 (Patch Removed - Provider: Madelyn Bailey RN)1313 (Patch Applied - Provider: Yu Gunderson RN) 0024 (Patch Removed - Provider: Tiffanie Rush RN)115 (Patch Applied - Provider: Yu Gunderson RN)1932 (Due: Patch Removed - Provider: Automatic Discharge Provider - Comment: Time automatically adjusted from order being discontinued) multivitamin with minerals oral liquid 15 mL 15 mL, G-tube, Daily, First dose (after last modification) on 05/23/25 at 0900, Until Discontinued 0825 (Given - Provider: Rosalinda Montano RN) 0916 (Given - Provider: Yu Gunderson RN) 0940 (Given - Provider: Yu Gunderson RN) peripheral line: sodium chloride (NS) 0.9% flush(Linked Group 2) 3 mL, Intravenous, Every 12 hours scheduled, First dose on Kristy 04/16/25 at 2100, Until Discontinued 823 (Not Given [...] RN - Reason: Order parameters not met) 0956 (Not Given - Provider: Yu Gunderson RN [...] Yu Gunderson RN)2105 (Given - Provider: Tiffanie Rush RN) 940 (Given - Provider: Yu Gunderson RN)2099 (Canceled [...] prev shift) 916 (Given - Provider: Yu Gunderson RN) 939 (Given - Provider: Yu Gunderson RN) tamsulosin (FLOMAX) 24 hr capsule 0.4 mg 0.4 mg, G-tube, At bedtime, First dose (after last modification) on Sun04/20/25 at 2200, Until Discontinued 2121 (Given - Provider: Madelyn Bailey RN) 2106 (Given - Provider: Tiffanie Rush RN) 2100 (Canceled Entry - Provider: Automatic Discharge Provider - Comment: Automatically canceled at discontinue of medication order) traZODone (DESYREL) tablet 150 mg 150 mg, G-tube, Nightly, First dose (after last modification) on Sun04/20/25 at 2200, Until Discontinued, HOLD IF ALTERED/if patient unarousable 2120 (Given - Provider: Madelyn Bailey RN) 2105 (Given - Provider: Tiffanie Rush RN) 2100 (Canceled Entry - Provider: Automatic Discharge Provider - Comment: Automatically canceled at discontinue of medication order) valproate (DEPAKENE) 250 mg/5 mL solution 500 mg 500 mg, G-tube, 2 times daily, First dose (after last modification) on Sun06/11/25 at 2100, Until Discontinued 0825 (Given - Provider: Rosalinda Montano RN)2121 (Given - Provider: Madelyn Bailey RN) 09 (Given - Provider: Yu Gunderson RN)2105 (Given - Provider: Tiffanie Rush, VITALIY) 0940 (Given - Provider: Yu Gunderson RN)2100 (Canceled Entry - Provider: Automatic Discharge Provider - Comment: Automatically canceled at discontinue of medication order) PRN Medication Order 06/23/2025 06/24/2025 06/25/2025 bisacodyl (DULCOLAX) suppository 10 mg 10 mg, Rectal, Daily PRN, Starting on 05/02/25 at 1623, Until Kristy 06/25/25 at 2133, constipation calcium carbonate (TUMS) chewable tablet 1,000 mg 1,000 mg, G-tube, 3 times daily PRN, Starting on Sun05/22/25 at 1058, Until Kristy 06/25/25 at 2133, indigestion, heartburn dextrose (TRUEPLUS) 40% [...] Sun05/27/25 at 1209, Until Kristy 06/25/25 at 2132, Use if patient is NPO, has IV access, does NOT have an altered level of consciousness, and blood glucose is 70 mg/dL or less. Admin every 15 min PRN. Repeat until blood glucose is above 70 mg/dL. dextrose 50% (D50W) injection 25 g(Linked Group 3) 50 mL (25 g), Intravenous, As needed, Starting on Sun05/27/25 at 1209, Until Kristy 06/25/25 at 2132, Use if patient is NPO, has IV access, WITH an altered level of consciousness, and blood glucose is 70 mg/dL or less. Admin every 15 min PRN. Repeat until blood glucose is above 70 mg/dL. diclofenac sodium (VOLTAREN) 1 % gel 2 g 2 g, Topical, 4 times daily PRN, Starting on Sun06/05/25 at 2020, Until Sun06/25/25 at 2132, mild (1-3) pain 2133 (Given - Provider: Madelyn Bailey RN) glucagon injection 1 mg(Linked Group 3) 1 mg, Intramuscular, As needed, Starting on Sun05/27/25 at 1209, Until Kristy 06/25/25 at 2132, Use if patient is NPO, does NOT [...] PRN, Starting on Sun05/30/25 at 0857, Until Kristy 06/25/25 at 2133, cough 0407 (Given - Provider: Emeli Pham, VITALIY) haloperidoL (HALDOL) tablet 2 mg 2 mg, Oral, 2 times daily PRN, Starting on Sun06/03/25 at 1715, Until Sun06/25/25 at 2133, agitation, For mild/moderate agitation. iohexoL (OMNIPAQUE) 240 [...] on Sun06/16/25 at 1158, Until Sun06/25/25 at 213, flatulence sodium chloride (OCEAN) 0.65 % nasal [...] Group 2: Insert and Maintain Peripheral IV Routine, Continuous, Starting on Sun04/16/25 at 1451, Until Specified And peripheral line: sodium chloride (NS) 0.9% flushJump to med 3 mL, Intravenous, Every 12 hours scheduled, First dose on Sun04/16/25 at 2100, Until Discontinued And peripheral line: sodium chloride 0.9 % (NS) flushJump to med 3 mL, Intravenous, Every 1 min PRN, Starting on Sun04/16/25 at 1450, Until Sun06/25/25 at 2133, line care Group 3: dextrose (TRUEPLUS) 40% oral gel 15 gJump to med 15 g, Oral, Every 15 min PRN, Starting on Sun05/27/25 at 1209, Until Sun06/25/25 at 2132, low blood sugar, Use if patient does [...] on Sun05/27/25 at 1209, Until Sun06/25/25 at 2132, Use if patient is NPO, has IV [...] documented as of this encounter 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 [address] [place] [id number] PCP - General 11/09/22 documented as of this encounter
--- NOTE | ~2025-06-25 | XR_ITS ---
CLINICAL HISTORY: Inadequate airway clearance 1 view chest x-ray Comparison: None provided Findings: No consolidation or effusion. Normal size heart. No acute fracture. Right glenohumeral suture anchors. IMPRESSION: 1. No acute findings. This document has been electronically signed by: Rachel Weber MD on 06/27/2025 06:42:58
--- OUTSIDE RECORDS SUMMARY | 2025-06-25 21:35 | XMS_ITS | Clinical Summary ---
Author Organization [facility] r Address [address] [place] [address] Phone Care Team Providers Care Leather Stripping Machine Operator Name Role Phone Malcolm Edmondson MD Unavailable Allergies No known active allergies Medications ARIPiprazole (ABILIFY) 10 MG tablet 5 Active allopurinol (ZYLOPRIM) 100 MG tablet 5 Active atorvastatin (LIPITOR) 20 MG tablet 5 Active buPROPion (WELLBUTRIN) 75 MG tablet 5 5 Active cloZAPine (CLOZARIL) 100 MG tablet 5 Active divalproex (DEPAKOTE) 250 MG EC tablet 5 Active propranolol (INDERAL LA) 60 mg 24 hr capsule 5 Active VIAGRA 100 mg tablet 5 5 Active oxybutynin (DITROPAN) 5 MG tablet 5 Active colchicine 0.6 mg tablet 2 5 Active cloZAPine (CLOZARIL) 25 MG tablet 50 mg. 5 Active doxycycline (VIBRA-TABS) 100 MG tablet 0 5 Active psyllium (METAMUCIL) 3.4 gram packet Take 1 packet by mouth daily. Active polyethylene glycol (MIRALAX) 17 gram packet Take 17 g by mouth daily. Active mupirocin (BACTROBAN) 2 % cream Apply topcially 3 (three) times a day. Active Social History Tobacco Use Types Packs/Day Years Used Date Smoking Tobacco: Never Tobacco Cessation:Counseling Given: No Alcohol Use Standard Drinks/Week Comments Not Asked 0 (1 standard drink = 0.6 oz pur e alcohol) Sex and Gender Information Value Date Recorded Sex Assigned at Not on file Legal Sex Male 5:47 PM EDT Gender Identity Not on file Sexual Orientation Not on file Plan of Treatment Health Maintenance Due Date Last Done Comments Diabetes Screening 1957 Fall Prevention 1957 HIV Lifetime Screening 1957 Hepatitis B Lifetime Screening 1957 Hepatitis C Antibody Lifetim e Screening 1957 LIPID PANEL 1957 THRIVE SCREENING 1957 Oral Health Screen 1957 HEIP Disability Screen 1962 BEHAVIORAL HEALTH SCREEN 1969 Psych Substance Use Screen 1969 DTAP/TDAP VACCINE (1 - Tdap) 1976 Colonoscopy FOBT- Positive 2002 Colonoscopy 2002 Colorectal Cancer Screening 2002 FOBT 2002 Sigmoidoscopy 2002 Pneumonia Vaccine 50+ (1 of 1 - PCV) 2007 Zoster Vaccine (1 of 2) 2007 COVID-19 Vaccine ( - 2023-2 5 season) 2024 INFLUENZA VACCINE (#1) 2025 RSV Immunization 60 Years an d Older [place] (1 - 1-dose 75+ series) 2032 HPV VACCINES Aged Out No longer eligi ble based on patient's age to complete this topic IPV VACCINES Aged Out No longer eligi ble based on patient's age to complete this topic MENINGOCOCCAL B Aged Out No longer el igible based on patient's age to complete this topic ROTAVIRUS VACCINES Aged Out No longer eligible based on patient's age to complete this topic Care Teams Leather Stripping Machine Operator Relationship Specialty Start Date End Date Malcolm Edmondson MD [address] PCP - Insurance 04/08/15
--- OUTSIDE RECORDS SUMMARY | 2025-06-25 21:35 | XMS_ITS | Encounter Summary ---
Author Organization [facility]lin hanna Address [address] [id number] Care Team Providers Care Barrel Builder Name Role Phone Malcolm Edmondson Primary Care Provider [phone] System, Provider Not In Primary Care Provider Un available Kalyan, Johanna Alonso Primary Care Provider Unavai lable Kalyan, Johanna Alonso Primary Care Provider Unavai lable Unknown, Provider Primary Care Provider Unava ilable None, Pcp Primary Care Provider UnavailJohanna Sorto MD Primary Care Provider [phone] None, Pcp Primary Care Provider UnavailSkye Chang MD Primary Care Provider [phone] Kilo Valera Jr. Primary Care Provid er Encounter Details Date Type Department Care Team (Late st Contact Info) Description 06/09/2015 Orders Only [facility] [place] - [address] [place] [address] Param Rhodes MD [address] [place] [id number] Schizoaffective disorder, unspecified condition (Primary Dx) Social History Tobacco Use Types Packs/Day Years Used Date Smoking Tobacco: Never Alcohol Use Standard Drinks/Week Comments No 0 (1 standard drink = 0.6 oz pur e alcohol) Sex and Gender Information Value Date Recorded Sex Assigned at Male 10/04/2018 2:02 AM EST Legal Sex Male 12:08 AM EST Gender Identity Male 10/04/2018 2:02 AM EST Sexual Orientation Not on file documented as of this encounter Plan of Treatment Not on file documented as of this encounter Procedures Procedure Name Priority Date/Time Associated Diagnosis Comments CBC AND DIFFERENTIAL Routine 06/09/2015 5:37 PM EDT Schizoaffective disorder, unspecified condition CREATININE WITH GFRE Routine 06/09/2015 5:37 PM EDT Schizoaffective disorder, unspecified condition CBC AND DIFFERENTIAL Routine 06/09/2015 5:37 PM EDT Schizoaffective disorder, unspecified condition VALPROIC ACID LEVEL Routine 06/09/2015 5 :37 PM EDT Schizoaffective disorder, unspecified condition HEPATIC FUNCTION PANEL Routine 06/09/2015 5:37 PM EDT Schizoaffective disorder, unspecified condition documented in this encounter Results * (ABNORMAL) Creatinine with GFRE (04/05/2016 5:48 PM EDT) [facility] Signature Creatinine, Blood 1.6(H) 0.6 - 1.3 mg/dL 04/05/2016 7:29 PM EDT [facility] GFR Historical (MDRD) 54(L) >=60 mL/min/BSA 04/05/2016 7:29 PM EDT [facility] Estimated GFR (MDRD) 45(L) >=60 mL/min/BSA 04/05/2016 7:29 PM EDT [facility] GFR Estimate Comment 04/05/2016 7:29 PM [facility] Comment: Chronic Kidney Disease(CKD) Stages based on estimated GFR: GFR ml/min/1.73m^2 Stage of CKD 30-59 3 15-29 4 <15(or dialysis) 5 The GFR estimate is not accurate for: a) Acute renal failure. b) Dosage calculations for Pharmacy drugs. Blood specimen (specimen) Venipuncture / Unknown 04/05/2016 5:48 PM EDT 04/05/2016 6:12 PM EDT Param Rhodes MD LAB BLOOD ORDERABLES Final Re sult Performing Organization Address [facility] de Phone Number [address] [address] * Hepatic Function Panel (04/05/2016 5:48 PM EDT) Total Protein 6.4 6.2 - 8.2 g/dL 04/05/2016 7:29 PM EDT [facility] Albumin, Blood 3.6 3.4 - 4.9 g/dL 04/05/2016 7:29 PM EDT [facility] Total Bilirubin 0.4 0.2 - 1.3 mg/dL 04/05/2016 7:29 PM EDT [facility] Direct Bilirubin 0.1 0.1 - 0.5 mg/dL 04/05/2016 7:29 PM EDT [facility] Alkaline Phosphatase 91 30 - 115 IU/L 04/05/2016 7:29 PM EDT [facility] AST (SGOT) 14 11 - 40 IU/L 04/05/2016 7:29 PM EDT [facility] ALT (SGPT) 19 7 - 40 IU/L 04/05/2016 7:29 PM EDT [facility] Blood specimen (specimen) Venipuncture / Unknown 04/05/2016 5:48 PM EDT 04/05/2016 6:12 PM EDT us Param Rhodes MD LAB BLOOD ORDERABLES Final Re sult Performing Organization Address [facility] de Phone Number [address] [address] * Valproic Acid Level (04/05/2016 5:48 PM EDT) Valproic Acid Level, Blood 59 50 - 100 ug/mL 04/05/2016 6:57 PM EDT [facility] Blood specimen (specimen) Venipuncture / Unknown 04/05/2016 5:48 PM EDT 04/05/2016 6:10 PM EDT us Param Rhodes MD LAB BLOOD ORDERABLES Final Re sult Performing Organization Address [facility] de Phone Number [address] [address] * (ABNORMAL) Creatinine with GFRE (03/10/2016 9:04 AM EDT) Creatinine, Blood 1.6(H) 0.6 - 1.3 mg/dL 03/10/2016 10:03 AM EDT [facility] GFR Historical (MDRD) 54(L) >=60 mL/min/BSA 03/10/2016 10:03 AM EDT [facility] Estimated GFR (MDRD) 45(L) >=60 mL/min/BSA 03/10/2016 10:03 AM EDT [facility] GFR Estimate Comment 03/10/2016 10:03 AM T [facility] Comment: Chronic Kidney Disease(CKD) Stages based on estimated GFR: GFR ml/min/1.73m^2 Stage of CKD 30-59 3 15-29 4 <15(or dialysis) 5 The GFR estimate is not accurate for: a) Acute renal failure. b) Dosage calculations for Pharmacy drugs. Blood specimen (specimen) Venipuncture / Unknown 03/10/2016 9:04 AM EDT 03/10/2016 9:27 AM EDT Param Rhodes MD LAB BLOOD ORDERABLES Final Re [facility] Performing Organization Address [facility] Co de Phone Number [address] [address] * Hepatic Function Panel (03/10/2016 9:04 AM EDT) Total Protein 6.6 6.2 - 8.2 g/dL 03/10/2016 10:03 AM EDT [facility] Albumin, Blood 3.7 3.4 - 4.9 g/dL 03/10/2016 10:03 AM EDT [facility] Total Bilirubin 0.4 0.2 - 1.3 mg/dL 03/10/2016 10:03 AM EDT [facility] Direct Bilirubin 0.1 0.1 - 0.5 mg/dL 03/10/2016 10:03 AM EDT [facility] Alkaline Phosphatase 103 30 - 115 IU/L 03/10/2016 10:03 AM EDT [facility] AST (SGOT) 15 11 - 40 IU/L 03/10/2016 10:03 AM EDT [facility] ALT (SGPT) 20 7 - 40 IU/L 03/10/2016 10:03 AM EDT [facility] Blood specimen (specimen) Venipuncture / Unknown 03/10/2016 9:04 AM EDT 03/10/2016 9:27 AM EDT Param Rhodes MD LAB BLOOD ORDERABLES Final Re sult Performing Organization Address [facility]/ZIP Co de Phone Number [address] [address] * Valproic Acid Level (03/10/2016 9:04 AM EDT) Valproic Acid Level, Blood 72 50 - 100 ug/mL 03/10/2016 9:53 AM EDT [facility] Blood specimen (specimen) Venipuncture / Unknown 03/10/2016 9:04 AM EDT 03/10/2016 9:27 AM EDT Param Rhodes MD LAB BLOOD ORDERABLES Final Re sult Performing Organization Address [facility] Co de Phone Number [address] [address] * (ABNORMAL) Creatinine with GFRE (02/17/2016 5:36 PM EDT) Creatinine, Blood 1.6(H) 0.6 - 1.3 mg/dL 02/17/2016 8:24 PM EDT [facility] GFR Historical (MDRD) 54(L) >=60 mL/min/BSA 02/17/2016 8:24 PM EDT [facility] Estimated GFR (MDRD) 45(L) >=60 mL/min/BSA 02/17/2016 8:24 PM EDT [facility] GFR Estimate Comment 02/17/2016 8:24 PM EDT [facility] Comment: Chronic Kidney Disease(CKD) Stages based on estimated GFR: GFR ml/min/1.73m^2 Stage of CKD 30-59 3 15-29 4 <15(or dialysis) 5 The GFR estimate is not accurate for: a) Acute renal failure. b) Dosage calculations for Pharmacy drugs. Blood specimen (specimen) Venipuncture / Unknown 02/17/2016 5:36 PM EDT 02/17/2016 5:54 PM EDT Param Rhodes MD LAB BLOOD ORDERABLES Final Re sult [address] [phone] * (ABNORMAL) Hepatic Function Panel (02/17/2016 5:36 PM EDT) Total Protein 6.7 6.2 - 8.2 g/dL 02/17/2016 8:24 PM EDT [facility] Albumin, Blood 3.5 3.4 - 4.9 g/dL 02/17/2016 8:24 PM T [facility] Total Bilirubin 0.3 0.2 - 1.3 mg/dL [facility]2016 [facility] Direct Bilirubin <0.1(L) 0.1 - 0.5 mg/dL 02/17/2016 8:24 PM EDT [facility] Alkaline Phosphatase 95 30 - 115 IU/L 02/17/2016 8:24 PM EDT [facility] AST (SGOT) 15 11 - 40 IU/L 02/17/2016 8:24 PM EDT [facility] ALT (SGPT) 19 7 - 40 IU/L 02/17/2016 8:24 PM EDT [facility] Blood specimen (specimen) Venipuncture / Unknown 02/17/2016 5:36 PM EDT 02/17/2016 5:54 PM EDT Param Rhodes MD LAB BLOOD ORDERABLES Final Re sult Performing Organization Address [facility]/ZIP Co de Phone Number [address] [address] * Valproic Acid Level (02/17/2016 5:36 PM EDT) Valproic Acid Level, Blood 56 50 - 100 ug/mL 02/17/2016 7:51 PM EDT [facility] Blood specimen (specimen) Venipuncture / Unknown 02/17/2016 5:36 PM EDT 02/17/2016 5:54 PM EDT Param Rhodes MD LAB BLOOD ORDERABLES Final Re sult Performing Organization Address [facility] de Phone Number [address] [address] * (ABNORMAL) Creatinine with GFRE (01/19/2016 5:37 PM EDT) Pathologist [facility] Creatinine, Blood 1.5(H) 0.6 - 1.3 mg/dL 01/19/2016 7:39 PM EDT [facility] GFR Historical (MDRD) 58(L) >=60 mL/min/BSA 01/19/2016 7:39 PM EDT [facility] Estimated GFR (MDRD) 48(L) >=60 mL/min/BSA 01/19/2016 7:39 PM EDT [facility] GFR Estimate Comment 01/19/2016 7:39 PM T [facility] Comment: Chronic Kidney Disease(CKD) Stages based on estimated GFR: GFR ml/min/1.73m^2 Stage of CKD 30-59 3 15-29 4 <15(or dialysis) 5 The GFR estimate is not accurate for: a) Acute renal failure. b) Dosage calculations for Pharmacy drugs. Blood specimen (specimen) Venipuncture / Unknown 01/19/2016 5:37 PM EDT 01/19/2016 6:07 PM EDT us Param Rhodes MD LAB BLOOD ORDERABLES Final Re sult Performing Organization Address [facility] Co de Phone Number [address] [address] * Hepatic Function Panel (01/19/2016 5:37 PM EDT) Total Protein 6.7 6.2 - 8.2 g/dL 01/19/2016 7:39 PM EDT [facility] Albumin, Blood 3.7 3.4 - 4.9 g/dL 01/19/2016 7:39 PM EDT [facility] Total Bilirubin 0.4 0.2 - 1.3 mg/dL 01/19/2016 7:39 PM EDT [facility] Direct Bilirubin 0.1 0.1 - 0.5 mg/dL 01/19/2016 7:39 PM EDT [facility] Alkaline Phosphatase 90 30 - 115 IU/L 01/19/2016 7:39 PM EDT [facility] AST (SGOT) 17 11 - 40 IU/L 01/19/2016 7:39 PM EDT [facility] ALT (SGPT) 22 7 - 40 IU/L 01/19/2016 7:39 PM EDT [facility] Blood specimen (specimen) Venipuncture / Unknown 01/19/2016 5:37 PM EDT 01/19/2016 6:07 PM EDT Param Rhodes MD LAB BLOOD ORDERABLES Final Re sult Performing Organization Address [facility] Co de Phone Number [address] [address] * Valproic Acid Level (01/19/2016 5:37 PM EDT) Valproic Acid Level, Blood 54 50 - 100 ug/mL 01/19/2016 7:29 PM EDT [facility] Blood specimen (specimen) Venipuncture / Unknown 01/19/2016 5:37 PM EDT 01/19/2016 6:07 PM EDT Param Rhodes MD LAB BLOOD ORDERABLES Final Re sult Performing Organization Address [facility] Co de Phone Number [address] [address] * (ABNORMAL) Creatinine with GFRE (12/22/2015 5:40 PM EST) Creatinine, Blood 1.6(H) 0.6 - 1.3 mg/dL 12/22/2015 7:42 PM [facility] GFR Historical (MDRD) 54(L) >=60 mL/min/BSA 12/22/2015 7:42 PM [facility] Estimated GFR (MDRD) 45(L) >=60 mL/min/BSA 12/22/2015 7:42 PM [facility] Blood specimen (specimen) Venipuncture / Unknown 12/22/2015 5:40 PM EST 12/22/2015 6:01 PM EST [facility] - 12/22/2015 7:42 PM EST Chronic Kidney Disease(CKD) Stages based on estimated GFR: GFR ml/min/1.73m^2 Stage of CKD 30-59 3 15-29 4 <15(or dialysis) 5 The GFR estimate is not accurate for: a) Acute renal failure. b) Dosage calculations for Pharmacy drugs. Param Rhodes MD LAB BLOOD ORDERABLES Final Nica valdez Performing Organization Address [facility] Co de Phone Number [address] [address] * Hepatic Function Panel (12/22/2015 5:40 PM EST) Total Protein 6.6 6.2 - 8.2 g/dL 12/22/2015 7:42 PM [facility] Albumin, Blood 3.7 3.4 - 4.9 g/dL 12/22/2015 7:42 PM [facility] Total Bilirubin 0.4 0.2 - 1.3 mg/dL 12/22/2015 7:42 PM [facility] Direct Bilirubin 0.2 0.1 - 0.5 mg/dL 12/22/2015 7:42 PM [facility] Alkaline Phosphatase 88 30 - 115 IU/L 12/22/2015 7:42 PM [facility] AST (SGOT) 19 11 - 40 IU/L 12/22/2015 7:42 PM [facility] ALT (SGPT) 26 7 - 40 IU/L 12/22/2015 7:42 PM [facility] Blood specimen (specimen) Venipuncture / Unknown 12/22/2015 5:40 PM EST 12/22/2015 6:01 PM EST Param Rhodes MD LAB BLOOD ORDERABLES Final Re sult Performing Organization Address [facility]/ZIP Co de Phone Number [address] [address] * Valproic Acid Level (12/22/2015 5:40 PM EST) Valproic Acid Level, Blood 53 50 - 100 ug/mL 12/22/2015 7:12 PM [facility] Blood specimen (specimen) Venipuncture / Unknown 12/22/2015 5:40 PM EST 12/22/2015 6:01 PM EST Param Rhodes MD LAB BLOOD ORDERABLES Final Re sult Performing Organization Address [facility] Co de Phone Number [address] [address] * (ABNORMAL) Creatinine with GFRE (11/17/2015 5:39 PM EST) Creatinine, Blood 1.6(H) 0.6 - 1.3 mg/dL 11/17/2015 7:30 PM [facility] GFR Historical (MDRD) 54(L) >=60 mL/min/BSA 11/17/2015 7:30 PM [facility] Estimated GFR (MDRD) 45(L) >=60 mL/min/BSA 11/17/2015 7:30 PM [facility] Blood specimen (specimen) Venipuncture / Unknown 11/17/2015 5:39 PM EST 11/17/2015 6:17 PM EST Narrative [facility] - 11/17/2015 7:30 PM EST Chronic Kidney Disease(CKD) Stages based on estimated GFR: GFR ml/min/1.73m^2 Stage of CKD 30-59 3 15-29 4 <15(or dialysis) 5 The GFR estimate is not accurate for: a) Acute renal failure. b) Dosage calculations for Pharmacy drugs. Param Rhodes MD LAB BLOOD ORDERABLES Final Re sult Performing Organization Address [facility] Co de Phone Number [address] [address] * Hepatic Function Panel (11/17/2015 5:39 PM EST) Pathologist [facility] Total Protein 6.6 6.2 - 8.2 g/dL 11/17/2015 7:30 PM EST [facility] Albumin, Blood 3.7 3.4 - 4.9 g/dL 11/17/2015 7:30 PM EST [facility] Total Bilirubin 0.2 0.2 - 1.3 mg/dL 11/17/2015 7:30 PM [facility] Direct Bilirubin 0.1 0.1 - 0.5 mg/dL 11/17/2015 7:30 PM [facility] Alkaline Phosphatase 92 30 - 115 IU/L 11/17/2015 7:30 PM [facility] AST (SGOT) 16 11 - 40 IU/L 11/17/2015 7:30 PM [facility] ALT (SGPT) 19 7 - 40 IU/L 11/17/2015 7:30 PM EST [facility] Blood specimen (specimen) Venipuncture / Unknown 11/17/2015 5:39 PM EST 11/17/2015 6:17 PM EST Param Rhodes MD LAB BLOOD ORDERABLES Final Re sult Performing Organization Address [facility]/ZIP Co de Phone Number [address] [address] * Valproic Acid Level (11/17/2015 5:39 PM EST) Valproic Acid Level, Blood 66 50 - 100 ug/mL 11/17/2015 7:31 PM EST [facility] Blood specimen (specimen) Venipuncture / Unknown 11/17/2015 5:39 PM EST 11/17/2015 6:17 PM EST Param Rhodes MD LAB BLOOD ORDERABLES Final Re sult Performing Organization Address [facility] de Phone Number [address] [address] * (ABNORMAL) Creatinine with GFRE (10/07/2015 5:47 PM EST) Creatinine, Blood 1.5(H) 0.6 - 1.3 mg/dL 10/07/2015 7:22 PM EST [facility] GFR Historical (MDRD) 58(L) >=60 mL/min/BSA 10/07/2015 7:22 PM EST [facility] Estimated GFR (MDRD) 48(L) >=60 mL/min/BSA 10/07/2015 7:22 PM EST [facility] Blood specimen (specimen) Venipuncture / Unknown 10/07/2015 5:47 PM EST 10/07/2015 6:14 PM EST Narrative [facility] - 10/07/2015 7:22 PM EST Chronic Kidney Disease(CKD) Stages based on estimated GFR: GFR ml/min/1.73m^2 Stage of CKD 30-59 3 15-29 4 <15(or dialysis) 5 The GFR estimate is not accurate for: a) Acute renal failure. b) Dosage calculations for Pharmacy drugs. Param Rhodes MD LAB BLOOD ORDERABLES Final Re sult Performing Organization Address [facility] de Phone Number [address] [address] * Hepatic Function Panel (10/07/2015 5:47 PM EST) Total Protein 6.8 6.2 - 8.2 g/dL 10/07/2015 7:22 PM [facility] Albumin, Blood 3.8 3.4 - 4.9 g/dL 10/07/2015 7:22 PM [facility] Total Bilirubin 0.4 0.2 - 1.3 mg/dL 10/07/2015 7:22 PM [facility] Direct Bilirubin 0.1 0.1 - 0.5 mg/dL 10/07/2015 7:22 PM [facility] Alkaline Phosphatase 108 30 - 115 IU/L 10/07/2015 7:22 PM [facility] AST (SGOT) 15 11 - 40 IU/L 10/07/2015 7:22 PM [facility] ALT (SGPT) 35 7 - 40 IU/L 10/07/2015 7:22 PM [facility] Blood specimen (specimen) Venipuncture / Unknown 10/07/2015 5:47 PM EST 10/07/2015 6:14 PM EST Param Rhodes MD LAB BLOOD ORDERABLES Final Re sult Performing Organization Address [facility]/ZIP Co de Phone Number [address] [address] * Valproic Acid Level (10/07/2015 5:47 PM EST) Pathologist [facility] Valproic Acid Level, Blood 69 50 - 100 ug/mL 10/07/2015 7:03 PM [facility] Blood specimen (specimen) Venipuncture / Unknown 10/07/2015 5:47 PM EST 10/07/2015 6:13 PM EST Param Rhodes MD LAB BLOOD ORDERABLES Final Re sult Performing Organization Address [facility]/ZIP Co de Phone Number [address] [address] * (ABNORMAL) Creatinine with GFRE (09/06/2015 5:41 PM EST) Creatinine, Blood 1.5(H) 0.6 - 1.3 mg/dL 09/06/2015 8:43 PM EST [facility] GFR Historical (MDRD) 58(L) >=60 mL/min/BSA 09/06/2015 8:43 PM [facility] Estimated GFR (MDRD) 48(L) >=60 mL/min/BSA 09/06/2015 8:43 PM [facility] Blood specimen (specimen) Venipuncture / Unknown 09/06/2015 5:41 PM EST 09/06/2015 7:48 PM EST [facility] - 09/06/2015 8:43 PM EST Chronic Kidney Disease(CKD) Stages based on estimated GFR: GFR ml/min/1.73m^2 Stage of CKD 30-59 3 15-29 4 <15(or dialysis) 5 The GFR estimate is not accurate for: a) Acute renal failure. b) Dosage calculations for Pharmacy drugs. Param Rhodes MD LAB BLOOD ORDERABLES Final Re sult [place] [phone] * Hepatic Function Panel (09/06/2015 5:41 PM EST) Total Protein 6.6 6.2 - 8.2 g/dL 09/06/2015 8:43 PM [facility] Albumin, Blood 3.6 3.4 - 4.9 g/dL 09/06/2015 8:43 PM [facility] Total Bilirubin 0.4 0.2 - 1.3 mg/dL 09/06/2015 8:43 PM [facility] Direct Bilirubin 0.1 0.1 - 0.5 mg/dL 09/06/2015 8:43 PM [facility] Alkaline Phosphatase 90 30 - 115 IU/L 09/06/2015 8:43 PM [facility] AST (SGOT) 16 11 - 40 IU/L 09/06/2015 8:43 PM [facility] ALT (SGPT) 21 7 - 40 IU/L 09/06/2015 8:43 PM [facility] Blood specimen (specimen) Venipuncture / Unknown 09/06/2015 5:41 PM EST 09/06/2015 7:48 PM EST Param Rhodes MD LAB BLOOD ORDERABLES Final Re sult [address] [address] * Valproic Acid Level (09/06/2015 5:41 PM EST) Valproic Acid Level, Blood 68 50 - 100 ug/mL 09/06/2015 8:24 PM EST [facility] Blood specimen (specimen) Venipuncture / Unknown 09/06/2015 5:41 PM EST 09/06/2015 7:48 PM EST Param Rhodes MD LAB BLOOD ORDERABLES Final Re sult Performing Organization Address [facility] Co de Phone Number [address] [address] * (ABNORMAL) Creatinine with GFRE (08/04/2015 5:35 PM EDT) Creatinine, Blood 1.7(H) 0.6 - 1.3 mg/dL 08/04/2015 6:30 PM EDT [facility] GFR Historical (MDRD) 50(L) >=60 mL/min/BSA 08/04/2015 6:30 PM EDT [facility] Estimated GFR (MDRD) 42(L) >=60 mL/min/BSA 08/04/2015 6:30 PM EDT [facility] Blood specimen (specimen) Venipuncture / Unknown 08/04/2015 5:35 PM EDT 08/04/2015 6:17 PM EDT [facility] - 08/04/2015 6:30 PM EDT Chronic Kidney Disease(CKD) Stages based on estimated GFR: GFR ml/min/1.73m^2 Stage of CKD 30-59 3 15-29 4 <15(or dialysis) 5 The GFR estimate is not accurate for: a) Acute renal failure. b) Dosage calculations for Pharmacy drugs. us Param Rhodes MD LAB BLOOD ORDERABLES Final Re sult Performing Organization Address [facility] de Phone Number [address] [address] * Hepatic Function Panel (08/04/2015 5:35 PM EDT) Total Protein 6.9 6.2 - 8.2 g/dL 08/04/2015 6:30 PM EDT [facility] Albumin, Blood 3.9 3.4 - 4.9 g/dL 08/04/2015 6:30 PM EDT [facility] Total Bilirubin 0.5 0.2 - 1.3 mg/dL 08/04/2015 6:30 PM EDT [facility] Direct Bilirubin <0.1 <0.3 mg/dL 08/04/2015 6:30 PM EDT [facility] Alkaline Phosphatase 89 30 - 115 IU/L 08/04/2015 6:30 PM EDT [facility] AST (SGOT) 18 11 - 40 IU/L 08/04/2015 6:30 PM EDT [facility] ALT (SGPT) 23 7 - 40 IU/L 08/04/2015 6:30 PM EDT [facility] Blood specimen (specimen) Venipuncture / Unknown 08/04/2015 5:35 PM EDT 08/04/2015 6:17 PM EDT us Param Rhodes MD LAB BLOOD ORDERABLES Final Re sult Performing Organization Address [facility] de Phone Number [address] [address] * Valproic Acid Level (08/04/2015 5:35 PM EDT) Valproic Acid Level, Blood 52 50 - 100 ug/mL 08/04/2015 6:44 PM EDT [facility] Blood specimen (specimen) Venipuncture / Unknown 08/04/2015 5:35 PM EDT 08/04/2015 6:17 PM EDT us Param Rhodes MD LAB BLOOD ORDERABLES Final Re sult Performing Organization Address [facility] [place] [address] * (ABNORMAL) Creatinine with GFRE (07/07/2015 5:46 PM EDT) Creatinine, Blood 1.7(H) 0.6 - 1.3 mg/dL 07/07/2015 6:09 PM EDT [facility] GFR Historical (MDRD) 50(L) >=60 mL/min/BSA 07/07/2015 6:09 PM EDT [facility] Estimated GFR (MDRD) 42(L) >=60 mL/min/BSA 07/07/2015 6:09 PM EDT [facility] Blood specimen (specimen) Venipuncture / Unknown 07/07/2015 5:46 PM EDT 07/07/2015 5:47 PM EDT Narrative [facility] - 07/07/2015 6:09 PM EDT Chronic Kidney Disease(CKD) Stages based on estimated GFR: GFR ml/min/1.73m^2 Stage of CKD 30-59 3 15-29 4 <15(or dialysis) 5 The GFR estimate is not accurate for: a) Acute renal failure. b) Dosage calculations for Pharmacy drugs. Param Rhodes MD LAB BLOOD ORDERABLES Final Re sult Performing Organization Address [facility] Co de Phone Number [address] [address] * Hepatic Function Panel (07/07/2015 5:46 PM EDT) Total Protein 7.1 6.2 - 8.2 g/dL 07/07/2015 6:09 PM EDT [facility] Albumin, Blood 4.0 3.4 - 4.9 g/dL 07/07/2015 6:09 PM EDT [facility] Total Bilirubin 0.5 0.2 - 1.3 mg/dL 07/07/2015 6:09 PM EDT [facility] Direct Bilirubin 0.1 <0.3 mg/dL 07/07/2015 6:09 PM EDT [facility] Alkaline Phosphatase 89 30 - 115 IU/L 07/07/2015 6:09 PM EDT [facility] AST (SGOT) 18 11 - 40 IU/L 07/07/2015 6:09 PM EDT [facility] [facility] ALT (SGPT) 25 7 - 40 IU/L 07/07/2015 6:09 PM EDT [facility] Blood specimen (specimen) Venipuncture / Unknown 07/07/2015 5:46 PM EDT 07/07/2015 5:47 PM EDT Param Rhodes MD LAB BLOOD ORDERABLES Final Re sult Performing Organization Address [facility] Co de Phone Number [address] [address] * Valproic Acid Level (07/07/2015 5:46 PM EDT) Valproic Acid Level, Blood 61 50 - 100 ug/mL 07/07/2015 6:09 PM EDT [facility] Blood specimen (specimen) Venipuncture / Unknown 07/07/2015 5:46 PM EDT 07/07/2015 5:47 PM EDT Param Rhodes MD LAB BLOOD ORDERABLES Final Re sult Performing Organization Address City/[facility]/ZIP Co de Phone Number [address] [address] * CBC and Differential (06/09/2015 5:37 PM EDT) WBC 9.46 4.40 - 11.30 K/uL 06/09/2015 7:30 PM EDT [facility] RBC 5.12 4.5 - 5.9 M/uL 06/09/2015 7:30 PM EDT [facility] Hemoglobin 16.5 13.8 - 17.4 g/dL 06/09/2015 7:30 PM EDT [facility] Hematocrit 48.5 41.0 - 51.0 % 06/09/2015 7:30 PM EDT [facility] MCV 95 80 - 96 fL 06/09/2015 7:30 PM EDT [facility] Platelet Count 218 150 - 450 K/uL 06/09/2015 7:30 PM EDT [facility] RDW 13.6 11.6 - 14.6 % 06/09/2015 7:30 PM EDT [facility] Neutrophil 65 % 06/09/2015 7:30 PM EDT [facility] Lymphocyte 26 % 06/09/2015 7:30 PM EDT [facility] Monocyte 8 % 06/09/2015 7:30 PM EDT [facility] Eosinophil 0 % 06/09/2015 7:30 PM EDT [facility] Basophil 0 % 06/09/2015 7:30 PM EDT [facility] Absolute Neutrophil Count 6.17 1.40 - 6.60 K/uL 06/09/2015 7:30 PM EDT [facility] Absolute Lymphocyte Count 2.45 1.20 - 3.50 K/uL 06/09/2015 7:30 PM EDT [facility] Absolute Monocyte Count 0.80 0.00 - 1.00 K/uL 06/09/2015 7:30 PM EDT [facility] Absolute Eosinophil Count 0.00 0.00 - 0.40 K/uL 06/09/2015 7:30 PM EDT [facility] Absolute Basophil Count 0.04 0.00 - 0.20 K/uL 06/09/2015 7:30 PM EDT [facility] MPV 06/09/2015 7:30 PM EDT [facility] Blood specimen (specimen) Venipuncture / Unknown 06/09/2015 5:37 PM EDT 06/09/2015 5:53 PM EDT us Param Rhodes MD LAB BLOOD ORDERABLES Final Re sult [address] [address] * (ABNORMAL) Creatinine with GFRE (06/09/2015 5:37 PM EDT) Creatinine, Blood 1.7(H) 0.6 - 1.3 mg/dL 06/09/2015 7:45 PM EDT [facility] GFR Historical (MDRD) 50(L) >=60 mL/min/BSA 06/09/2015 7:45 PM EDT [facility] Estimated GFR (MDRD) 42(L) >=60 mL/min/BSA 06/09/2015 7:45 PM EDT [facility] Blood specimen (specimen) Venipuncture / Unknown 06/09/2015 5:37 PM EDT 06/09/2015 5:53 PM EDT [facility] - 06/09/2015 7:45 PM EDT Chronic Kidney Disease(CKD) Stages based on estimated GFR: GFR ml/min/1.73m^2 Stage of CKD 30-59 3 15-29 4 <15(or dialysis) 5 The GFR estimate is not accurate for: a) Acute renal failure. b) Dosage calculations for Pharmacy drugs. Param Rhodes MD LAB BLOOD ORDERABLES Final Re sult [address] [address] * Hepatic Function Panel (06/09/2015 5:37 PM EDT) Total Protein 7.1 6.2 - 8.2 g/dL 06/09/2015 7:45 PM [facility] Albumin, Blood 3.8 3.4 - 4.9 g/dL 06/09/2015 7:45 PM [facility] Total Bilirubin 0.5 0.2 - 1.3 mg/dL 06/09/2015 7:45 PM T [facility] Direct Bilirubin 0.2 0.1 - 0.5 mg/dL 06/09/2015 7:45 PM [facility] Alkaline Phosphatase 94 30 - 115 IU/L 06/09/2015 7:45 PM T [facility] AST (SGOT) 16 11 - 40 IU/L 06/09/2015 7:45 PM T [facility] ALT (SGPT) 21 7 - 40 IU/L 06/09/2015 7:45 PM EDT [facility] Blood specimen (specimen) Venipuncture / Unknown 06/09/2015 5:37 PM EDT 06/09/2015 5:53 PM EDT Param Rhodes MD LAB BLOOD ORDERABLES Final Re sult Performing Organization Address City/[facility]/ZIP Co de Phone Number [address] [address] * Valproic Acid Level (06/09/2015 5:37 PM EDT) Valproic Acid Level, Blood 60 50 - 100 ug/mL 06/09/2015 6:37 PM EDT [facility] Blood specimen (specimen) Venipuncture / Unknown 06/09/2015 5:37 PM EDT 06/09/2015 5:53 PM EDT Param Rhodes MD LAB BLOOD ORDERABLES Final Re sult Performing Organization Address [facility] Co de Phone Number [address] [address] documented in this encounter Visit Diagnoses Diagnosis Schizoaffective disorder, unspecified condition- Primary documented in this encounter Additional Health Concerns Infection Onset Date Last Indicated Resolved Time COVID Suspect 04/23/2022 04/23/2022 04/23/2022 10: 07 PM EDT COVID Positive 04/23/2022 04/23/2022 05/23/2022 12 :25 AM EDT Rule[facility]Out Respiratory Virus 04/16/2025 04/16/2025 0 04/16/2025 10:05 AM EDT Rule-Out Respiratory Virus 05/07/2025 05/07/2025 0 05/07/2025 6:15 PM EDT Rule-Out Respiratory Virus 05/19/2025 05/19/2025 0 05/19/2025 12:22 PM EDT Rule-Out Respiratory Virus 05/24/2025 05/24/2025 0 05/24/2025 11:10 AM EDT COVID Positive 05/24/2025 05/24/2025 06/03/2025 7: 24 AM EDT documented as of this encounter Care Teams Barrel Builder Relationship Specialty Start Date End Date Malcolm Edmondson PCP - General 08/31/14 12/31/19 System, Provider Not In PCP - General 01/01/20 04/13/20 Johanna Biggs [address] [place] [address] [address] [place] [address] PCP - General 04/14/20 10/27/20 Johanna Biggs [address] [place] [address] [address] [place] [address] PCP - General 10/28/20 01/03/21 Unknown, Provider, [address] [place] [address] PCP - General 01/04/21 03/10/21 None, Pcp, [address] [place] [address] PCP - General 03/11/21 11/22/21 Johanna Biggs MD [address] [place] [address] PCP - General Family Practice 11/23/21 05/29/22 None, Pcp, [address] [place] [address] PCP - General 05/30/22 05/31/22 Skye De Leon MD [address] [place] [address] PCP - General Internal Medicine 06/01/22 11/08/22 Kilo Valera Jr. [address] [place] [address] PCP - General 11/09/22 documented as of this encounter
--- OUTSIDE RECORDS SUMMARY | 2025-06-25 21:35 | XMS_ITS | Encounter Summary ---
Author Organization [facility] Address [address] [id number] Care Team Providers Care Can Intake Worker Name Role Phone Malcolm Edmondson Primary Care Provider [phone] System, Provider Not In Primary Care Provider Un available Kalyan, Johanna Alonso Primary Care Provider Unavai lable Kalyan, Johanna Alonso Primary Care Provider Unavai lable Unknown, Provider Primary Care Provider Unava ilable None, Pcp Primary Care Provider UnavailJohanna Sorto MD Primary Care Provider [phone] None, Pcp Primary Care Provider UnavailSkye Chang MD Primary Care Provider [phone] Kilo Valera Jr. Primary Care Provid er Encounter Details Date Type Department Care Team (Late st Contact Info) Description 03/31/2015 Orders Only [facility] - [address] [place] [address] Param Rhodes MD [address] [place] [address] Schizoaffective disorder, unspecified condition (Primary Dx) Social [...] on file documented as of this encounter Results * (ABNORMAL) Creatinine with GFRE (05/12/2015 5:30 PM EDT) Creatinine, Blood 1.6(H) 0.6 - 1.3 mg/dL 05/12/2015 7:[address] [facility] GFR Historical (MDRD) 54(L) >=60 mL/min/BSA 05/12/2015 7:38 PM EDT [facility] Estimated GFR (MDRD) 45(L) >=60 mL/min/BSA 05/12/2015 7:[address] [facility] Blood specimen (specimen) Venipuncture / Unknown 05/12/2015 5:30 PM EDT 05/12/2015 6:03 PM EDT [facility] - 05/12/2015 7:38 PM EDT Chronic Kidney Disease(CKD) Stages based on estimated GFR: GFR ml/min/1.73m^2 Stage of CKD 30-59 3 15-29 4 <15(or dialysis) 5 The GFR estimate is not accurate for: a) Acute renal failure. b) Dosage calculations for Pharmacy drugs. us Param Rhodes MD LAB BLOOD ORDERABLES Final Re sult [address] [address] * (ABNORMAL) Hepatic Function Panel (05/12/2015 5:30 PM EDT) Total Protein 7.1 6.2 - 8.2 g/dL 05/12/2015 7:38 PM EDT [facility] Albumin, Blood 3.7 3.4 - 4.9 g/dL 05/12/2015 7:38 PM EDT [facility] Total Bilirubin 0.4 0.2 - 1.3 mg/dL 05/12/2015 7:38 PM EDT [facility] Direct Bilirubin 0.1 0.1 - 0.5 mg/dL 05/12/2015 7:38 PM EDT [facility] Alkaline Phosphatase 120(H) 30 - 115 IU/L 05/12/2015 7:38 PM EDT [facility] AST (SGOT) 24 11 - 40 IU/L 05/12/2015 7:38 PM EDT [facility] ALT (SGPT) 34 7 - 40 IU/L 05/12/2015 7:38 PM EDT [facility] Blood specimen (specimen) Venipuncture / Unknown 05/12/2015 5:30 PM EDT 05/12/2015 6:03 PM EDT Param Rhodes MD LAB BLOOD ORDERABLES Final Re sult Performing Organization Address [facility]/ZIP Co de Phone Number [address] [address] * Valproic Acid Level (05/12/2015 5:30 PM EDT) Valproic Acid Level, Blood 72 50 - 100 ug/mL 05/12/2015 7:[address] [facility] Blood specimen (specimen) Venipuncture / Unknown 05/12/2015 5:30 PM EDT 05/12/2015 6:03 PM EDT Param Rhodes MD LAB BLOOD ORDERABLES Final Re sult Performing Organization Address [facility] Co de Phone Number [address] [address] * (ABNORMAL) Creatinine with GFRE (04/07/2015 5:31 PM EDT) Creatinine, Blood 1.6(H) 0.6 - 1.3 mg/dL 04/07/2015 7:52 PM EDT [facility] GFR Historical (MDRD) 54(L) >=60 mL/min/BSA 04/07/2015 7:52 PM EDT [facility] Estimated GFR (MDRD) 45(L) >=60 mL/min/BSA 04/07/2015 7:52 PM EDT [facility] Blood specimen (specimen) Venipuncture / Unknown 04/07/2015 5:31 PM EDT 04/07/2015 6:11 PM EDT Narrative [facility] - 04/07/2015 7:52 PM EDT Chronic Kidney Disease(CKD) Stages based on estimated GFR: GFR ml/min/1.73m^2 Stage of CKD 30-59 3 15-29 4 <15(or dialysis) 5 The GFR estimate is not accurate for: a) Acute renal failure. b) Dosage calculations for Pharmacy drugs. Param Rhodes MD LAB BLOOD ORDERABLES Final Re sult Performing Organization Address [facility] Co de Phone Number [address] [address] * Hepatic Function Panel (04/07/2015 5:31 PM EDT) Total Protein 6.9 6.2 - 8.2 g/dL 04/07/2015 7:52 PM EDT [facility] Albumin, Blood 3.6 3.4 - 4.9 g/dL 04/07/2015 7:52 PM EDT [facility] Total Bilirubin 0.4 0.2 - 1.3 mg/dL 04/07/2015 7:52 PM T [facility] Direct Bilirubin 0.2 0.1 - 0.5 mg/dL 04/07/2015 7:52 PM T [facility] Alkaline Phosphatase 100 30 - 115 IU/L 04/07/2015 7:52 PM EDT [facility] AST (SGOT) 19 11 - 40 IU/L 04/07/2015 7:52 PM EDT [facility] ALT (SGPT) 30 7 - 40 IU/L 04/07/2015 7:52 PM EDT [facility] Blood specimen (specimen) Venipuncture / Unknown 04/07/2015 5:31 PM EDT 04/07/2015 6:11 PM EDT Param Rhodes MD LAB BLOOD ORDERABLES Final Re sult Performing Organization Address [facility] Co de Phone Number [address] [place] [address] * Valproic Acid Level (04/07/2015 5:31 PM EDT) Valproic Acid Level, Blood 60 50 - 100 ug/mL 04/07/2015 7:35 PM EDT [facility] Blood specimen (specimen) Venipuncture / Unknown 04/07/2015 5:31 PM EDT 04/07/2015 6:11 PM EDT us Param Rhodes MD LAB BLOOD ORDERABLES Final Re sult [address] [address] documented in this encounter Visit Diagnoses Diagnosis [...] documented as of this encounter Care Teams Can Intake Worker Relationship Specialty Start Date End Date Malcolm Edmondson PCP - General 08/31/14 12/31/19 System, Provider Not In PCP - General 01/01/20 04/13/20 Johanna Biggs [address] [place] [address] PCP - General 04/14/20 10/27/20 Johanna Biggs [address] [place] [address] PCP - General 10/28/20 01/03/21 Unknown, Provider, [address] [place] [address] PCP - General 01/04/21 03/10/21 None, Pcp, [address] [place] [address] PCP - General 03/11/21 11/22/21 Johanna Biggs MD [address] [place] [address] PCP - General Family Practice 11/23/21 05/29/22 None, Pcp, [address] [place] [address] PCP - General 05/30/22 05/31/22 Skye De Leon MD [address] [place] [address] PCP - General Internal Medicine 06/01/22 11/08/22 Kilo Valera Jr. [address] [place] [address] PCP - General 11/09/22 documented as of this encounter
--- OUTSIDE RECORDS SUMMARY | 2025-06-25 21:35 | XMS_ITS | Encounter Summary ---
Author Organization [facility] Address [address] [place] [address] Care Team Providers Care Automotive Hardware Engineer Name Role Phone Malcolm Edmondson Primary Care Provider [phone] System, Provider Not In Primary Care Provider Un available Kalyan, Johanna Alonso Primary Care Provider Unavai lable Kalyan, Johanna Alonso Primary Care Provider Unavai lable Unknown, Provider Primary Care Provider Unava ilable None, Pcp Primary Care Provider Johanna Kidd MD Primary Care Provider [phone] None, Pcp Primary Care Provider Skye Morton MD Primary Care Provider [phone] Kilo Valera Jr. Primary Care Provid er Encounter Details Date Type Department Care Team (Late st Contact Info) Description 03/08/2015 Orders Only [facility] - [address] [place] [address] Carter Rhodes [address] [place] [address] Social History Tobacco Use Types Packs/Day Years [...] on file documented as of this encounter Visit Diagnoses Not on filedocumented in this encounter Additional Health Concerns Infection [...] documented as of this encounter Care Teams Automotive Hardware Engineer Relationship Specialty Start Date End Date Malcolm Edmondson PCP - General 08/31/14 12/31/19 System, Provider Not In PCP - General 01/01/20 04/13/20 Johanna Biggs [address] [place] [address] [address] [place] [address] PCP - General 04/14/20 10/27/20 Johanna Biggs [address] [place] [address] [address] [place] [address] PCP - General 10/28/20 01/03/21 Unknown, Provider, [address] [place] [address] PCP - General 01/04/21 03/10/21 None, Pcp, [address] [place] [address] PCP - General 03/11/21 11/22/21 Johanna Biggs MD [address] [place] [address] PCP - General Family Practice 11/23/21 05/29/22 None, Pcp, [address] [place] [address] PCP - General 05/30/22 05/31/22 Skye De Leon MD [address] [place] [address] PCP - General Internal Medicine 06/01/22 11/08/22 Kiol Valera Jr. [address] [place] [address] PCP - General 11/09/22 documented as of this encounter
--- OUTSIDE RECORDS SUMMARY | 2025-06-25 21:35 | XMS_ITS | Encounter Summary ---
Author Organization [facility] Address [address] [id number] Care Team Providers Care Safety Technician Name Role Phone Malcolm Edmondson Primary Care Provider [phone] System, Provider Not In Primary Care Provider Un available Kalyan, Johanna Alonso Primary Care Provider Unavai lable Kalyan, Johanna Alonso Primary Care Provider Unavai lable Unknown, Provider Primary Care Provider Unava ilable None, Pcp Primary Care Provider UnavailJohanna Sorto MD Primary Care Provider [phone] None, Pcp Primary Care Provider UnavailSkye Chang MD Primary Care Provider [phone] Kilo Valera Jr. Primary Care Provid er Encounter Details Date Type Department Care Team (Late st Contact Info) Description 03/31/2015 Orders Only [facility] - [address] [place] [address] Param Rhodes MD [address] [place] [address] Schizoaffective disorder, unspecified condition (Primary Dx) Social [...] documented as of this encounter Visit Diagnoses Diagnosis Schizoaffective disorder, [...] documented as of this encounter Care Teams Safety Technician Relationship Specialty Start Date End Date Malcolm Edmondson PCP - General 08/31/14 12/31/19 System, Provider Not In PCP - General 01/01/20 04/13/20 Johanna Biggs [address] [place] [address] [place] [address] PCP - General 04/14/20 10/27/20 Johanna Biggs [address] [place] [address] PCP - General 10/28/20 01/03/21 Unknown, Provider, [address] [place] [address] PCP - General 01/04/21 03/10/21 None, Pcp, [address] [place] [address] PCP - General 03/11/21 11/22/21 Johanna Biggs MD [address] [place] [address] PCP - General Family Practice 11/23/21 05/29/22 None, PcpMD [address] [place] [address] PCP - General 05/30/22 05/31/22 Skye De Leon MD [address] [place] [address] PCP - General Internal Medicine 06/01/22 11/08/22 Kilo Valera Jr. [address] [place] [address] PCP - General 11/09/22 documented as of this encounter
--- OUTSIDE RECORDS SUMMARY | 2025-06-25 21:35 | XMS_ITS | Clinical Summary ---
Author Organization [facility] Address [address] [place] [address] Care Team Providers Care Manager Web Application Name Role Phone Kilo Valera Jr. Primary Care Provid er Allergies Active Allergy Reactions Criticality Noted Date Comments Morphine Itching Low 02/16/2015 Medications atorvaSTATin (LIPITOR) 20 MG tablet TAKE 1 TABLET (20 MG TOTAL) BY MOUTH DAILY. 90 tablet 3 7 Active Additional Information Patient taking differently: 20 mg Oral Daily, Reported on 04/16/2025 buPROPion (WELLBUTRIN) 100 MG tablet Take 1 tablet (100 mg total) by mouth 3 times a day. Active lidocaine (LIDODERM) 5 % patch Place 1 patch on the skin daily. Remove & Discard patch within 12 hours or as directed by MD Active tamsulosin (FLOMAX) 0.4 mg cap 24 hr capsule 1 capsule (0.4 mg total) by G-tube route at bedtime. Active traZODone (DESYREL) 150 MG tablet 1 tablet (150 mg total) by G-tube route at bedtime. Active sennosides 8.8 mg/5 mL oral syrup 10 mL (17.6 mg total) by G-tube route every morning & every evening. Active gabapentin (NEURONTIN) 300 MG capsule 1 capsule (300 mg total) by G-tube route at bedtime. Active famotidine (PEPCID) 20 MG tablet 1 tablet (20 mg total) by G-tube route every morning & every evening. Active cloZAPine (CLOZARIL) 25 MG tablet 9 tablets (225 mg total) by G-tube route at bedtime. Active cloZAPine (CLOZARIL) 25 MG tablet 1 tablet (25 mg total) by G-tube route daily. Active gabapentin (NEURONTIN) 100 MG capsule 1 capsule (100 mg total) by G-tube route every morning. Active gabapentin (NEURONTIN) 300 MG capsule 1 capsule (300 mg total) by G-tube route at bedtime. Active acetaminophen (TYLENOL) 500 MG tablet 2 tablets (1,000 mg total) by G-tube route 3 times a day. Active bisacodyl (DULCOLAX) 10 mg suppository Insert 1 suppository (10 mg total) into the rectum daily as needed for constipation. Active calcium carbonate (TUMS) 200 mg calcium (500 mg) chewable tablet 2 tablets (1,000 mg total) by G-tube route 3 times a day as needed for heartburn. Active diclofenac sodium (VOLTAREN) 1 % Gel Apply 2 g topically 4 times a day as needed (pain). Active guaiFENesin (ROBITUSSIN) 100 mg/5 mL syrup Take 10 mL (200 mg total) by mouth every 4 hours as needed for cough. Active haloperidoL (HALDOL) 1 MG tablet 1 tablet (1 mg total) by G-tube route daily AND 3 tablets (3 mg total) at bedtime. Active haloperidoL (HALDOL) 2 MG tablet Take 1 tablet (2 mg total) by mouth 2 times a day as needed (For mild/moderate agitation.). 5 Active ketoconazole (NIZORAL) 2 % cream Apply topically 2 times a day. Active lactulose (ENULOSE) 10 gram/15 mL solution 30 mL (20 g total) by G-tube route 2 times a day. Active polyethylene glycol (MIRALAX) 17 gram packet Take 1 packet (17 g total) by mouth 2 times a day. Active ramelteon (ROZEREM) 8 mg tablet Take 1 tablet (8 mg total) by mouth at bedtime. G-tube 5 Active simethicone (MYLICON) 80 MG chewable tablet 1 tablet (80 mg total) by G-tube route every 6 hours as needed for flatulence. 5 Active valproate (DEPAKENE) 250 mg/5 mL Soln 10 mL (500 mg total) by G-tube route 2 times a day. 5 Active sodium chloride (OCEAN) 0.65 % nasal spray 2 sprays into each nostril every 2 hours as needed for congestion. 5 Active carbidopa-levod opa (SINEMET) 25-100 mg per tablet 2 tablets by G-tube route 3 times a day. Discontin ued(Stop taking at Discharge ) potassium, sodium phosphates (PHOS-NAK) 280-160-250 mg PwPk Take 1 packet by mouth 3 times a day before meals. 025 Discontin ued(Stop taking at Discharge ) traMADoL 25 mg Tab 3 tablets (75 mg total) by G-tube route 4 times a day. 025 Discontin ued(Stop taking at Discharge ) hydrOXYzine HCL (ATARAX) 25 MG tablet 1 tablet (25 mg total) by G-tube route 4 times a day. 025 Discontin ued(Stop taking at Discharge ) gabapentin (NEURONTIN) 100 MG capsule 1 capsule (100 mg total) by G-tube route every morning & every evening. 025 Discontin ued(Stop taking at Discharge ) fluticasone propionate (FLONASE) 50 mcg/actuation nasal spray 1 spray by Each Nare route daily. 025 Discontin ued(Stop taking at Discharge ) fluoride, sodium, (FLUORIDEX DAILY DEFENSE) 1.1 % Pste Apply 1 Application to teeth at bedtime. 025 Discontin ued(Stop taking at Discharge ) docusate sodium (COLACE) 50 mg/5 mL liquid 10 mL (100 mg total) by G-tube route every morning & every evening. 025 Discontin ued(Stop taking at Discharge ) cloZAPine (CLOZARIL) 100 MG tablet 1 tablet (100 mg total) by G-tube route at bedtime. Take with 75 mg for total dose of 175 mg at bedtime 025 Discontin ued(Stop taking at Discharge ) cloZAPine (CLOZARIL) 25 MG tablet 3 tablets (75 mg total) by G-tube route at bedtime. Take with 100 mg for total dose of 175 mg at bedtime 025 Discontin ued(Stop taking at Discharge ) fludrocortisone (FLORINEF) 0.1 mg tablet Take 1 tablet (0.1 mg total) by mouth daily. 025 Discontin ued(Stop taking at Discharge ) Active Problems Problem Noted Date Diagnosed Date Catatonia 04/16/2025 Aspiration pneumonitis 04/16/2025 Aspiration into airway, sequela 04/16/2025 Diarrhea of presumed infectious origin 9 Diarrhea 04/19/2019 Pneumonia of right lower lobe due to infectious organism 10/04/2018 Cardiac microvascular disease 10/01/2015 Chronic kidney disease, stage III (moderate) 08/2015 Chronic idiopathic gout of multiple sites 2014 Schizoaffective disorder 09/29/2015 Overactive bladder 09/29/2015 Resolved Problems Problem Noted Date Diagnosed Date Resolved Date Acute renal failure superimp osed on stage 3 chronic kidney disease 10/04/2018 10/07/2018 Hyperkalemia 10/04/2018 10/07/2018 Sepsis due to pneumonia 10/04/201809/21 Gastroenteritis 10/04/2018 10/07/2018 Generalized abdominal discomfort 10/04/2018 10/07/2018 Chest pain at rest 09/30/2015 5 Encounters Date Type Department Care Team Description 04/16/2025 Travel 04/15/2025 6:17 PM EDT - 06/25/2025 7:33 PM EDT Hospital Encounter [facility] [address] [place] [address] Dane Caldwell MD Dagan, MD Michelle Giraldo Shamai A, MD Dowdell, MD Prashant Hilliard, MD Mary Vergara, MD Magnus Vera Matthew, MD Basilio, Carlo, MD Roy, MD Elizabeth Haro, MD Tere White, Noe, MD Xie, SourMD Rod michelle Wendy, MD Deng, Lixia, MD Hale, Caleb P, MD Minor, Noah A, MD Wagner, Benjamin, MD Li, MD Trinidad Jorge David, MD Rosenberg, Noah, MD Altered mental status, unspecified altered mental status type (Primary Dx); Tachycardia; Unclassified epileptic seizures (HCC); Chest pain, unspecified type; Schizoaffective disorder, depressive type (HCC); Aspiration into airway, sequela; Aspiration pneumonitis (HCC); intermediate current use of therapeutic drug; Abnormal electrocardiography Discharge Disposition: [facility] 03/26/2025 Documentation [facility] Program [address] [place] [address] eGnoveva Douglass MD national investigative producer correspondence (03/26/2025-Kenneth Torres NP/BMP: BUN/Creatine 32 currently on 300 ml Q6h, increased 350 ml Q6h free water flush ) from Last 3 Months Family History Medical History Relation Comments Dementia Father Dementia Mother Relation Status Comments Father Mother Social History Tobacco Use Types Packs/Day Years [...] the Last Year Not on file 2024 [facility] Utilities Answer Date Recorded In the [...] 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 Not on file Not on file Last Filed Vital Signs Vital Sign Reading [...] Mass Index 23.31 04/16/2025 6:36 PM EDT Plan of Treatment Health Maintenance Due Date Last Done Comments PSA 1957 Prostate Cancer Screening 1957 SDM 1957 Depression Screening 1961 Hepatitis C Screening 1975 CT Colonography 2002 Colonoscopy 2002 Colorectal Cancer Screening 2002 FIT 2002 FOBT 2002 Multitarget Stool DNA (Cologuard) 2002 Sigmoidoscopy 2002 Medicare Initial AWV [id number] 09/21/2022 Lipid Panel 04/22/2025 04/22/2024, 03/0 02/2024, 12/25/2023, Additional history exists COVID-19 Vaccine ( season) 2025 07/12/2022, 01/31/2022, 06/08/2021, Additional history exists Influenza Vaccine (#1) 2025 , 10/19/2021, 06/28/2020, Additional history exists Blood Pressure 06/24/2026 06/25/2025 DTaP,Tdap,and Td Vaccines (5 - Td or Tdap) 03/18/2027 03/18/2017, 09/30/2009, 12/20/2002, Additional history exists Pneumococcal Vaccine Completed 06/20/2022, 10/05/2015, 03/02/2015 Zoster Vaccine Completed 07/23/2023, 01/27/2023 Meningococcal B Vaccines Aged Out No longer eligible based on patient's age to complete this topic Meningococcal Vaccines Aged Out No lo nger eligible based on patient's age to complete this topic Procedures Procedure Name Priority Date/Time Associated Diagnosis [...] EDT MAGNESIUM Timed 06/15/2025 6:22 AM EDT BASIC METABOLIC PANEL Timed 06/15/2025 6:22 AM EDT HEPATIC FUNCTION PANEL Timed 06/15/2025 6:22 AM EDT PHOSPHORUS Timed 06/12/2025 6:57 AM EDT MAGNESIUM Timed 06/12/2025 6:57 AM EDT BASIC METABOLIC PANEL Timed 06/12/2025 6:57 AM EDT HEPATIC FUNCTION PANEL Timed 06/12/2025 6:57 AM EDT CBC Timed 06/12/2025 6:57 AM EDT POCI GLUCOSE Routine 06/11/2025 1:54 PM EDT ECG 12-LEAD Routine 06/11/2025 11:23 AM EDT intermediate designer current use of therapeutic drug FL MODIFIED BARIUM SWALLOW INCL SPEECH Routine 06/11/2025 10:30 AM EDT DIFFERENTIAL WITH WBC Routine 06/10/2025 7:20 AM EDT PHOSPHORUS Timed 06/10/2025 7:20 AM EDT MAGNESIUM Timed 06/10/2025 7:20 AM EDT BASIC METABOLIC PANEL Timed 06/10/2025 7:20 AM EDT HEPATIC FUNCTION PANEL Timed 06/10/2025 7:20 AM EDT CBC Timed 06/10/2025 7:20 AM EDT POCI GLUCOSE Routine 06/08/2025 12:13 PM EDT PHOSPHORUS Timed 06/08/2025 7:52 AM EDT MAGNESIUM Timed 06/08/2025 7:52 AM EDT BASIC METABOLIC PANEL Timed 06/08/2025 7:52 AM EDT HEPATIC FUNCTION PANEL Timed 06/08/2025 7:52 AM EDT CBC Timed 06/08/2025 7:52 AM EDT POCI GLUCOSE [...] POCI GLUCOSE Routine 06/05/2025 6:13 AM EDT PHOSPHORUS Timed 06/05/2025 5:53 AM EDT MAGNESIUM Timed 06/05/2025 5:53 AM EDT BASIC METABOLIC PANEL Timed 06/05/2025 5:53 AM EDT CBC Timed 06/05/2025 5:53 AM EDT HEPATIC FUNCTION PANEL Timed 06/05/2025 5:53 AM EDT POCI GLUCOSE Routine 06/05/2025 12:41 AM EDT POCI GLUCOSE Routine 06/04/2025 6:40 PM EDT POCI GLUCOSE Routine 06/04/2025 12:07 PM EDT PHOSPHORUS Timed 06/04/2025 6:25 AM EDT MAGNESIUM Timed 06/04/2025 6:25 AM EDT BASIC METABOLIC PANEL Timed 06/04/2025 6:25 AM EDT CBC Timed 06/04/2025 6:25 AM EDT HEPATIC FUNCTION PANEL Timed 06/04/2025 6:25 AM EDT POCI GLUCOSE Routine 06/04/2025 5:17 AM EDT ECG 12-LEAD Routine 06/04/2025 5:14 AM EDT Chest pain, unspecified type POCI GLUCOSE Routine 06/04/2025 1:04 AM EDT POCI GLUCOSE Routine 06/03/2025 6:31 PM EDT POCI GLUCOSE Routine 06/03/2025 11:49 AM EDT CLOZAPINE LEVEL,BLOOD Routine 06/03/2025 6:08 AM EDT PHOSPHORUS Timed 06/03/2025 6:08 AM EDT MAGNESIUM Timed 06/03/2025 6:08 AM EDT BASIC METABOLIC PANEL Timed 06/03/2025 6:08 AM EDT CBC Timed 06/03/2025 6:08 AM EDT HEPATIC FUNCTION PANEL Timed 06/03/2025 6:08 AM EDT POCI GLUCOSE Routine 06/03/2025 5:50 AM EDT POCI GLUCOSE Routine 06/02/2025 11:44 PM EDT POCI GLUCOSE Routine 06/02/2025 5:24 PM EDT POCI GLUCOSE Routine 06/02/2025 12:13 PM EDT POCI GLUCOSE Routine 06/02/2025 5:59 AM EDT CBC AND DIFFERENTIAL Timed 06/02/2025 5:41 AM EDT MANUAL DIFF AND MORPH Routine 06/02/2025 5:41 AM EDT PHOSPHORUS Timed 06/02/2025 5:41 AM EDT MAGNESIUM Timed 06/02/2025 5:41 AM EDT BASIC METABOLIC PANEL Timed 06/02/2025 5:41 AM EDT CBC AND DIFFERENTIAL Timed 06/02/2025 5:41 AM EDT HEPATIC FUNCTION PANEL Timed 06/02/2025 5:41 AM EDT POCI GLUCOSE Routine 06/02/2025 12:15 AM EDT POCI GLUCOSE Routine 06/01/2025 6:00 PM EDT POCI GLUCOSE Routine 06/01/2025 11:38 AM EDT POCI GLUCOSE Routine 06/01/2025 6:46 AM EDT CBC AND DIFFERENTIAL Timed 06/01/2025 5:36 AM EDT MANUAL DIFF AND MORPH Routine 06/01/2025 5:36 AM EDT PHOSPHORUS Timed 06/01/2025 5:36 AM EDT MAGNESIUM Timed 06/01/2025 5:36 AM EDT BASIC METABOLIC PANEL Timed 06/01/2025 5:36 AM EDT CBC AND DIFFERENTIAL Timed 06/01/2025 5:36 AM EDT HEPATIC FUNCTION PANEL Timed 06/01/2025 5:36 AM EDT POCI GLUCOSE Routine 06/01/2025 12:53 AM EDT POCI GLUCOSE Routine 05/31/2025 5:39 PM EDT POCI GLUCOSE Routine 05/31/2025 12:43 PM EDT ECG 12-LEAD STAT 05/31/2025 10:34 AM EDT Tachycardia POCI GLUCOSE Routine 05/31/2025 6:09 AM EDT POCI GLUCOSE Routine 05/30/2025 12:35 PM EDT CBC AND DIFFERENTIAL Timed 05/30/2025 7:50 AM EDT MANUAL DIFF AND MORPH Routine 05/30/2025 7:50 AM EDT PHOSPHORUS Timed 05/30/2025 7:50 AM EDT MAGNESIUM Timed 05/30/2025 7:50 AM EDT BASIC METABOLIC PANEL Timed 05/30/2025 7:50 AM EDT CBC AND DIFFERENTIAL Timed 05/30/2025 7:50 AM EDT HEPATIC FUNCTION PANEL Timed 05/30/2025 7:50 AM EDT POCI [...] EDT MAGNESIUM Timed 05/29/2025 6:20 AM EDT BASIC METABOLIC PANEL Timed 05/29/2025 6:20 AM EDT CBC AND DIFFERENTIAL Timed 05/29/2025 6:20 AM EDT HEPATIC FUNCTION PANEL Timed 05/29/2025 6:20 AM EDT POCI [...] EDT MAGNESIUM Timed 05/28/2025 5:53 AM EDT BASIC METABOLIC PANEL Timed 05/28/2025 5:53 AM EDT HEPATIC FUNCTION PANEL Timed 05/28/2025 5:53 AM EDT CBC AND DIFFERENTIAL Timed 05/28/2025 5:52 AM EDT MANUAL DIFF AND MORPH Routine [...] GAS, VENOUS STAT 2025 8:28 PM EDT PHOSPHORUS STAT 2025 8:23 PM EDT MAGNESIUM STAT 2025 8:23 PM EDT COMPREHENSIVE METABOLIC PANEL STAT 2025 8:23 PM EDT CBC STAT 2025 8:23 PM EDT CULTURE, RESPIRATORY (INCL GRAM) Routine 2025 5:55 PM EDT POCI GLUCOSE Routine 2025 5:49 PM EDT MRSA/SA BY PCR Routine 2025 3:35 PM EDT POCI GLUCOSE Routine 2025 2:37 PM EDT XR PORTABLE CHEST 1 VW STAT 2025 11:34 AM EDT CBC AND DIFFERENTIAL Timed 2025 6:34 AM EDT MANUAL DIFF AND MORPH Routine 2025 6:34 AM EDT PHOSPHORUS Timed 2025 6:34 AM EDT MAGNESIUM Timed 2025 6:34 AM EDT BASIC METABOLIC PANEL Timed 2025 6:34 AM EDT CBC AND DIFFERENTIAL Timed 2025 6:34 AM EDT HEPATIC FUNCTION PANEL Timed 2025 6:34 AM EDT CBC AND DIFFERENTIAL Timed 05/26/2025 7:16 AM EDT PHOSPHORUS Timed 05/26/2025 7:16 AM EDT MAGNESIUM Timed 05/26/2025 7:16 AM EDT BASIC METABOLIC PANEL Timed 05/26/2025 7:16 AM EDT CBC AND DIFFERENTIAL Timed 05/26/2025 7:16 AM EDT HEPATIC FUNCTION PANEL Timed 05/26/2025 7:16 AM EDT RBC WBC PLT MORPHOLGY Routine 05/25/2025 12:28 PM EDT CBC AND DIFFERENTIAL Timed 05/25/2025 12:28 PM EDT CBC AND DIFFERENTIAL Timed 05/25/2025 12:28 PM EDT ECG 12-LEAD Routine 05/25/2025 12:17 PM EDT intermediate current use of therapeutic drug VALPROIC ACID LEVEL Routine 05/25/2025 7:32 AM EDT RENAL FUNCTION PANEL Timed 05/25/2025 7:32 AM EDT BID URINE HOLD Routine 05/25/2025 5:11 AM EDT URINALYSIS WITH URINE CULTURE REFLEX Routine 05/25/2025 5:11 AM EDT BID UA [...] EDT MAGNESIUM Routine 05/24/2025 6:27 AM EDT BASIC METABOLIC PANEL Routine 05/24/2025 6:27 AM EDT HEPATIC FUNCTION PANEL Routine 05/24/2025 6:27 AM EDT XR [...] 05/01/2025 11:03 AM EDT HC VEEG BY Iris Experience EA INCR 12-26 HR UNMONITORED Routine 05/01/2025 6:30 AM EDT Unclassified epileptic seizures (HCC) CBC AND DIFFERENTIAL Timed 05/01/2025 6:23 AM EDT CBC AND DIFFERENTIAL Timed 05/01/2025 6:23 AM EDT HC VEEG BY Iris Experience 2-12 HOURS UNMONITORED Routine 04/30/2025 2:04 PM EDT Unclassified epileptic seizures (HCC) URINALYSIS WITH MICROSCOPIC Routine 04/30/2025 12:21 PM EDT XR ABDOMEN AP Routine 04/30/2025 11:38 AM EDT ECG 12-LEAD STAT 04/30/2025 10:20 AM EDT Altered mental status, unspecified altered mental status type D-DIMER STAT 04/30/2025 10:14 AM EDT PHOSPHORUS STAT 04/30/2025 10:10 AM EDT MAGNESIUM STAT 04/30/2025 10:10 AM EDT BASIC METABOLIC PANEL STAT 04/30/2025 10:10 AM EDT HEPATIC FUNCTION PANEL STAT 04/30/2025 10:10 AM EDT CK (CREATINE KINASE) STAT 04/30/2025 10:10 AM EDT LACTATE DEHYDROGENASE STAT 04/30/2025 10:10 AM EDT CBC STAT 04/30/2025 10:10 AM EDT POCI GLUCOSE [...] URINE HOLD Routine 04/23/2025 9:26 PM EDT URINALYSIS WITH URINE CULTURE REFLEX Routine 04/23/2025 9:26 PM EDT BID UA WITH URINE CULTURE REFLEX Routine 04/23/2025 9:26 PM EDT DIFFERENTIAL WITH WBC Routine 04/23/2025 7:21 AM EDT PHOSPHORUS Routine 04/23/2025 7:21 AM EDT MAGNESIUM Routine 04/23/2025 7:21 AM EDT BASIC METABOLIC PANEL Routine 04/23/2025 7:21 AM EDT CBC Routine 04/23/2025 7:21 AM EDT HC VEEG BY Iris Experience EA INCR 12-26 HR UNMONITORED Routine 04/23/2025 7:08 AM EDT Unclassified epileptic seizures (HCC) HC EEG W O VIDEO BY TECH 2-12 HR UNMONITORED Routine 04/22/2025 5:30 PM EDT Unclassified epileptic seizures (HCC) XR PORTABLE CHEST 1 VW STAT 04/22/2025 2:59 PM EDT PROLACTIN Routine 04/22/2025 12:02 PM EDT CLOZAPINE LEVEL,BLOOD Routine 04/22/2025 12:[address] HEAD WO CONTRAST STAT 04/22/2025 11:55 AM EDT ECG 12-LEAD Routine 04/22/2025 11:27 AM EDT Tachycardia HEPATIC FUNCTION PANEL Routine 04/22/2025 11:21 AM EDT CK (CREATINE KINASE) Routine 04/22/2025 11:21 AM EDT LACTIC ACID Routine 04/22/2025 11:21 AM EDT BLOOD GAS, VENOUS Routine 04/22/2025 11:21 AM EDT CBC Routine 04/22/2025 11:21 AM EDT BASIC METABOLIC PANEL Routine 04/22/2025 11:21 AM EDT POCI GLUCOSE Routine 04/22/2025 11:07 AM EDT CBC AND DIFFERENTIAL Routine 04/22/2025 6:56 AM EDT CBC AND DIFFERENTIAL Routine 04/22/2025 6:56 AM EDT MAGNESIUM Timed 04/20/2025 6:54 AM EDT PHOSPHORUS Timed 04/20/2025 6:54 AM EDT BASIC METABOLIC PANEL Timed 04/20/2025 6:54 AM EDT CBC Timed 04/20/2025 6:54 AM EDT XR PORTABLE ABDOMEN Routine 04/19/2025 6:48 PM EDT IR G TUBE RESCUE Routine 04/19/2025 3:15 PM EDT MAGNESIUM Timed 04/19/2025 6:10 AM EDT PHOSPHORUS Timed 04/19/2025 6:10 AM EDT BASIC METABOLIC PANEL Timed 04/19/2025 6:10 AM EDT CBC Timed 04/19/2025 6:10 AM EDT MAGNESIUM Timed 04/18/2025 7:10 AM EDT PHOSPHORUS Timed 04/18/2025 7:10 AM EDT BASIC METABOLIC PANEL Timed 04/18/2025 7:10 AM EDT CBC Timed 04/18/2025 7:10 AM EDT C-REACTIVE PROTEIN Routine 04/17/2025 7:40 AM EDT VITAMIN D,25OH Routine 04/17/2025 7:40 AM EDT MAGNESIUM Timed 04/17/2025 7:40 AM EDT PHOSPHORUS Timed 04/17/2025 7:40 AM EDT BASIC METABOLIC PANEL Timed 04/17/2025 7:40 AM EDT CBC Timed 04/17/2025 7:40 AM EDT XR CHEST 2 VW STAT 04/16/2025 2:55 PM EDT SARS COV2/INFLUENZA A/B AND RSV STAT 04/16/2025 9:24 AM EDT DRUG SCREEN, URINE STAT 04/16/2025 6:54 AM EDT BID URINE HOLD STAT 04/16/2025 6:54 AM EDT URINALYSIS WITH URINE CULTURE REFLEX STAT 04/16/2025 6:54 AM EDT BID UA WITH URINE CULTURE REFLEX STAT 04/16/2025 6:54 AM EDT BB RETYPE STAT 04/15/2025 11:33 PM EDT CK (CREATINE KINASE) Routine 04/15/2025 11:33 PM EDT HS-TROPONIN T, 1HR STAT 04/15/2025 11:33 PM EDT AMMONIA STAT 04/15/2025 11:33 PM EDT LACTIC ACID WITH REFLEX STAT 04/15/2025 11:33 PM EDT MRI BRAIN WO CONTRAST STAT 04/15/2025 11:19 PM EDT TOXICOLOGY SCREEN, BLOOD STAT 04/15/2025 9:18 PM EDT HS TROPONIN T (REFLEX 1HR, 3HR) STAT 04/15/2025 9:18 PM EDT XR CHEST 2 VW STAT 04/15/2025 8:05 PM EDT ECG 12-LEAD STAT 04/15/2025 6:[address] ANGIOGRAM HEAD NECK CODE STROKE STAT 04/15/2025 6:40 PM EDT CBC AND DIFFERENTIAL STAT 04/15/2025 6:17 PM EDT TYPE AND SCREEN STAT 04/15/2025 6:17 PM EDT TSH Routine 04/15/2025 6:17 PM EDT CBC AND DIFFERENTIAL STAT 04/15/2025 6:17 PM EDT TROPONIN (ALL) STAT 04/15/2025 6:17 PM EDT APTT STAT 04/15/2025 6:17 PM EDT PROTIME-INR STAT 04/15/2025 6:17 PM EDT COMPREHENSIVE METABOLIC PANEL STAT 04/15/2025 6:17 PM EDT POCI GLUCOSE Routine 04/15/2025 6:15 PM EDT LIPID PANEL Add-On 01/20/2023 8:26 AM EDT Pneumonitis due to inhalation of food and vomit (HCC) from Last 3 Months or Most Recently Relevant to Health Maintenance Results * (ABNORMAL) Renal Function Panel (06/22/2025 5:26 AM EDT) Only the most recent of3 resultswithin the time period is included. Sodium 142 135 - 147 mmol/L 06/22/2025 6:44 AM T [facility] Potassium 4.2 3.5 - 5.4 mmol/L 06/22/2025 6:44 AM EDT [facility] Chloride 103 96 - 108 mmol/L 06/22/2025 6:44 AM T [facility] Total CO2/Bicarbonate 28 22 - 32 mmol/L 06/22/2025 6:44 AM [facility] Anion Gap 11 10 - 18 mmol/L 06/22/2025 6:44 AM [facility] BUN 27(H) 6 - 20 mg/dL 06/22/2025 6:44 AM [facility] Creatinine, Blood 0.80 0.50 - 1.20 mg/dL 06/22/2025 6:44 AM T [facility] Glucose, Blood 141(H) 70 - 100 mg/dL 06/22/2025 6:44 AM T [facility] Calcium 9.0 8.4 - 10.3 mg/dL 06/22/2025 6:44 AM [facility] Albumin, Blood 3.1(L) 3.5 - 5.2 g/dL 06/22/2025 6:44 AM T [facility] Phosphorus 3.7 2.7 - 4.5 mg/dL 06/22/2025 6:44 AM [facility] Magnesium, Blood 2.2 1.6 - 2.6 mg/dL 06/22/2025 6:44 AM [facility] Estimated GFR(CKD-EPI) 96 mL/min/BSA 06/22/2025 6:44 AM [facility] Blood PERIPHERAL BLOOD SPECIMEN / Unknown Venipuncture / Unknown 06/22/2025 5:26 AM EDT 06/22/2025 5:47 AM EDT us Govind Olivo MD LAB BLOOD ORDERABLES Final Result [facility] [address] [place] [address], [place] * (ABNORMAL) CBC and Differential (06/22/2025 12:37 AM EDT) Only the most recent of23 resultswithin the time period is included. WBC 6.62 4.00 - 10.00 K/uL 06/22/2025 1:15 AM EDT [facility] RBC 3.67(L) 4.60 - 6.10 M/uL 06/22/2025 1:15 AM EDT [facility] Hemoglobin 11.3(L) 13.7 - 17.5 g/dL 06/22/2025 1:15 AM EDT [facility] Hematocrit 34.7(L) 40.0 - 51.0 % 06/22/2025 1:15 AM EDT [facility] MCV 95 82 - 98 fL 06/22/2025 1:15 AM EDT [facility] MCH 30.8 26.0 - 32.0 pg 06/22/2025 1:15 AM EDT [facility] MCHC 32.6 32.0 - 37.0 g/dL 06/22/2025 1:15 AM EDT [facility] RDW 15.5 10.5 - 15.5 % 06/22/2025 1:15 AM EDT [facility] RDW-SD 53.1(H) 35.1 - 46.3 fL 06/22/2025 1:15 AM EDT [facility] Platelet Count 185 150 - 400 K/uL 06/22/2025 1:15 AM EDT [facility] Nucleated RBC 0 <=0 #/100 WBC 06/22/2025 1:15 AM EDT [facility] Neutrophil 67.5 34.0 - 71.0 % 06/22/2025 1:15 AM EDT [facility] Lymphocyte 20.1 19.0 - 53.0 % 06/22/2025 1:15 AM EDT [facility] Monocyte 10.6 5.0 - 13.0 % 06/22/2025 1:15 AM EDT [facility] Eosinophil 0.0(L) 1.0 - 7.0 % 06/22/2025 1:15 AM EDT [facility] Basophil 0.3 0.0 - 1.0 % 06/22/2025 1:15 AM EDT [facility] Immature Granulocyte (Atkinson, Myelo, Promyelocyte) 1.5(H) 0.0 - 0.6 % 06/22/2025 1:15 AM EDT [facility] Absolute Neutrophil Count 4.47 1.60 - 6.10 K/uL 06/22/2025 1:15 AM EDT [facility] Absolute Lymphocyte Count 1.33 1.20 - 3.70 K/uL 06/22/2025 1:15 AM EDT [facility] Absolute Monocyte Count 0.70 0.20 - 0.80 K/uL 06/22/2025 1:15 AM EDT [facility] Absolute Eosinophil Count 0.00(L) 0.04 - 0.54 K/uL 06/22/2025 1:15 AM EDT [facility] Absolute Basophil Count 0.02 0.01 - 0.08 K/uL 06/22/2025 1:15 AM EDT [facility] Absolute Immature Granulocyte (Atkinson, Myelo, Promyelocyte) 0.10(H) 0.00 - 0.09 K/uL 06/22/2025 1:15 AM EDT [facility] Blood PERIPHERAL BLOOD SPECIMEN / Unknown Venipuncture / Unknown 06/22/2025 12:37 AM EDT 06/22/2025 1:04 AM EDT us Govind Olivo MD LAB BLOOD ORDERABLES Final Result [facility] [address] [place] [address], * ECG 12 lead (06/18/2025 11:54 AM EDT) Only the most recent of16 resultswithin the time period is included. Ventricular Heart Rate 101 BPM EKG [facility] Atrial Heart Rate 101 BPM EKG [facility] NC Interval 142 ms EKG [facility] QRSD Interval 98 ms EKG [facility] QT Interval 376 ms EKG [facility] MUSE QTC Interval 487 ms EKG BUR MUSE P [place] 43 degrees EKG BUR MUSE R [place] -26 degrees EKG BUR MUSE T Wave [place] 56 degrees EKG BUR MUSE 06/18/2025 11:5 [...] ORDERABLES Final Resul t EKG BUR MUSE [address] [place] [id number] * XR Abdomen 1 VW (06/16/2025 1:33 PM EDT) Only the most recent of3 resultswithin the time period is included. Anatomical Region Laterality Modality Abdomen Digital Radiogra [...] us Govind Olivo MD IMG DIAGNOSTIC IMAGING [facility] Final Result * (ABNORMAL) Valproic Acid Level (06/15/2025 9:42 PM EDT) Only the most recent of2 resultswithin the time period is included. Valproic Acid Level, Blood 49(L) 50 - 100 ug/mL 06/15/2025 10:29 PM EDT [facility] Blood PERIPHERAL BLOOD SPECIMEN / Unknown Venipuncture / Unknown 06/15/2025 9:42 PM EDT 06/15/2025 9:45 PM EDT us Govind Olivo MD LAB BLOOD ORDERABLES Final Result [facility] [address] [place] [address], [place] * Clozapine Level, Blood (06/15/2025 9:41 PM EDT) Only the most recent of3 resultswithin the time period is included. Norclozapine 88 25 - 400 mcg/L 06/19/2025 3:00 PM EDT [facility] Clozapine 224 mcg/L 06/19/2025 3:00 PM EDT [facility] Comment: The therapeutic response begins to appear at 100 mcg/L. Refractory schizophrenia appears to require a therapeutic concentration of at least 350 mcg/L (trough, at steady state). Toxic range: Greater than 900 mcg/L This test was developed and its analytical performance characteristics have been determined by [employer] [place], [place]. It has not been cleared or approved by the U.S. Food and Drug Administration. This assay has been validated pursuant to the CLIA regulations and is used for clinical purposes. Blood PERIPHERAL BLOOD SPECIMEN / Unknown Venipuncture / Unknown 06/15/2025 9:41 PM EDT 06/15/2025 9:45 PM EDT Narrative [facility] [place] - 06/19/2025 3:00 PM EDT Performing Organization Information: Site ID: [id number] Name: [employer]/[facility] Address: [address] [place] [phone] Director: LEONEL RUIZ MD,PHD Govind Olivo MD LAB BLOOD ORDERABLES Final Result [facility] [address] [place] [address], * Valproic Acid Level, Free (06/15/2025 9:41 PM EDT) Valproic Acid, Free 13.7 4.8 - 17.3 mg/L 06/19/2025 3:00 PM EDT [facility] Comment: Nonlinear drug binding properties result in the fraction of free valproic acid increasing as total drug increases. The free valproic acid fraction may range from 5% to 25% for the total drug range of 30-160 mg/L. Blood PERIPHERAL BLOOD SPECIMEN / Unknown Venipuncture / Unknown 06/15/2025 9:41 PM EDT 06/15/2025 9:45 PM EDT Narrative [facility] - 06/19/2025 3:00 PM EDT Performing Organization Information: Site ID: [id number] Name: [employer] Address: [address] [place] [phone] Director: FIDEL CRAWFORD MD us Govind Olivo MD LAB BLOOD ORDERABLES Final Result [address] [address], [place] [phone] * (ABNORMAL) CBC (06/15/2025 6:23 AM EDT) Only the most recent of16 resultswithin the time period is included. WBC 8.69 4.00 - 10.00 K/uL 06/15/2025 6:52 AM EDT [facility] RBC 3.83(L) 4.60 - 6.10 M/uL 06/15/2025 6:52 AM EDT [facility] Hemoglobin 11.6(L) 13.7 - 17.5 g/dL 06/15/2025 6:52 AM EDT [facility] Hematocrit 36.2(L) 40.0 - 51.0 % 06/15/2025 6:52 AM EDT [facility] MCV 95 82 - 98 fL 06/15/2025 6:52 AM EDT [facility] MCH 30.3 26.0 - 32.0 pg 06/15/2025 6:52 AM EDT [facility] MCHC 32.0 32.0 - 37.0 g/dL 06/15/2025 6:52 AM EDT [facility] RDW 14.5 10.5 - 15.5 % 06/15/2025 6:52 AM EDT [facility] RDW-SD 49.3(H) 35.1 - 46.3 fL 06/15/2025 6:52 AM EDT [facility] Platelet Count 256 150 - 400 K/uL 06/15/2025 6:52 AM EDT [facility] Nucleated RBC 0 <=0 #/100 WBC 06/15/2025 6:52 AM EDT [facility] Blood PERIPHERAL BLOOD SPECIMEN / Unknown Venipuncture / Unknown 06/15/2025 6:23 AM EDT 06/15/2025 6:36 AM EDT Urban Mondragon MD LAB BLOOD ORDERABLES Final Resul t Performing Organization Address City/[facility]/ZIP Co de Phone Number [facility] [address] [place] [address], [place] * Phosphorus (06/15/2025 6:22 AM EDT) Only the most recent of23 resultswithin the time period is included. Phosphorus 3.4 2.7 - 4.5 mg/dL 06/15/2025 7:14 AM EDT [facility] Blood PERIPHERAL BLOOD SPECIMEN / Unknown Venipuncture / Unknown 06/15/2025 6:22 AM EDT 06/15/2025 6:36 AM EDT us Urban Mondragon MD LAB BLOOD ORDERABLES Final Resul t [facility] [address] [place] [address], [place] * Magnesium (06/15/2025 6:22 AM EDT) Only the most recent of23 resultswithin the time period is included. Magnesium, Blood 2.1 1.6 - 2.6 mg/dL 06/15/2025 7:14 AM EDT [facility] Blood PERIPHERAL BLOOD SPECIMEN / Unknown Venipuncture / Unknown 06/15/2025 6:22 AM EDT 06/15/2025 6:36 AM EDT us Urban Mondragon MD LAB BLOOD ORDERABLES Final Resul t [facility] [address] [place] [address], [place] * (ABNORMAL) Hepatic Function Panel (06/15/2025 6:22 AM EDT) Only the most recent of17 resultswithin the time period is included. Total Protein 5.9(L) 6.4 - 8.3 g/dL 06/15/2025 7:32 AM EDT [facility] Albumin, Blood 2.9(L) 3.5 - 5.2 g/dL 06/15/2025 7:32 AM EDT [facility] Globulin Result 3.0 2.0 - 4.0 g/dL 06/15/2025 7:32 AM EDT [facility] Total Bilirubin 0.2 0.0 - 1.5 mg/dL 06/15/2025 7:32 AM EDT [facility] Direct Bilirubin <0.1 0.0 - 0.3 mg/dL 06/15/2025 7:32 AM EDT [facility] Alkaline Phosphatase 117 40 - 130 U/L 06/15/2025 7:32 AM EDT [facility] AST (SGOT) 22 0 - 40 U/L 06/15/2025 7:32 AM EDT [facility] ALT (SGPT) 14 0 - 40 U/L 06/15/2025 7:32 AM EDT [facility] Blood PERIPHERAL BLOOD SPECIMEN / Unknown Venipuncture / Unknown 06/15/2025 6:22 AM EDT 06/15/2025 6:36 AM EDT Urban Modnragon MD LAB BLOOD ORDERABLES Final Resul t [facility] [address] [place] [address], [place] * (ABNORMAL) Basic Metabolic Panel (06/15/2025 6:22 AM EDT) Only the most recent of24 resultswithin the time period is included. Sodium 142 135 - 147 mmol/L 06/15/2025 7:14 AM EDT [facility] Potassium 4.2 3.5 - 5.4 mmol/L 06/15/2025 7:14 AM EDT [facility] Chloride 104 96 - 108 mmol/L 06/15/2025 7:14 AM EDT [facility] Total CO2/Bicarbonat e 29 22 - 32 mmol/L 06/15/2025 7:14 AM EDT [facility] Anion Gap 9(L) 10 - 18 mmol/L 06/15/2025 7:14 AM EDT [facility] BUN 28(H) 6 - 20 mg/dL 06/15/2025 7:14 AM EDT [facility] Creatinine, Blood 0.90 0.50 - 1.20 mg/dL 06/15/2025 7:14 AM EDT [facility] Glucose, Blood 109(H) 70 - 100 mg/dL 06/15/2025 7:14 AM EDT [facility] Calcium 8.9 8.4 - 10.3 mg/dL 06/15/2025 7:14 AM EDT [facility] Blood PERIPHERAL BLOOD SPECIMEN / Unknown Venipuncture / Unknown 06/15/2025 6:22 AM EDT 06/15/2025 6:36 AM EDT us Urban Mondragon MD LAB BLOOD ORDERABLES Final Resul t [facility] [address] [place] [address], * (ABNORMAL) POCT Glucose (06/11/2025 1:54 PM EDT) Only the most recent of52 resultswithin the time period is included. Glucose, POC 118(H) 70 - 100 mg/dL 06/11/2025 2:05 PM EDT [facility] Comment: @Serial Koytss=[id number] @Document Manager [id number] Blood 06/11/2025 1:54 PM EDT 06/11/2025 2:05 PM EDT us Feliciano Choi MD POCT ORDERABLES - DEVICE Patricia l Result [facility] [address] [place] [address], [place] * [place] Modified Barium Swallow Incl Speech [...] in astandalone note by the Speech-Language Pathologist ([place], Notes, SpeechPathology). BY ELECTRONICALLY SIGNING THIS REPORT, I THE ATTENDING PHYSICIAN ATTESTTHAT I HAVE REVIEWED THE IMAGES FOR THE ABOVE PROCEDURE(S) AND AGREE WITHTHE FINDINGS DOCUMENTED. Jose Quintana MD, electronically signed on Jun 11 2025 05:13PM us Feliciano Choi MD IMG FLUOROSCOPY ORDERABLES Fi nal Result * (ABNORMAL) Differential with WBC (06/10/2025 7:20 AM EDT) Only the most recent of2 resultswithin the time period is included. WBC 19.00(H) 4.00 - 10.00 K/uL 06/10/2025 9:52 AM EDT [facility] Neutrophil 85.5(H) 34.0 - 71.0 % 06/10/2025 9:52 AM EDT [facility] Lymphocyte 7.7(L) 19.0 - 53.0 % 06/10/2025 9:52 AM EDT [facility] Monocyte 5.6 5.0 - 13.0 % 06/10/2025 9:52 AM EDT [facility] Eosinophil 0.0(L) 1.0 - 7.0 % 06/10/2025 9:52 AM EDT [facility] Basophil 0.4 0.0 - 1.0 % 06/10/2025 9:52 AM EDT [facility] Nucleated RBC 0 <=0 #/100 WBC 06/10/2025 9:52 AM EDT [facility] Absolute Neutrophil Count 16.18(H) 1.60 - 6.10 K/uL 06/10/2025 9:52 AM EDT [facility] Absolute Lymphocyte Count 1.45 1.20 - 3.70 K/uL 06/10/2025 9:52 AM EDT [facility] Absolute Monocyte Count 1.06(H) 0.20 - 0.80 K/uL 06/10/2025 9:52 AM EDT [facility] Absolute Eosinophil Count 0.00(L) 0.04 - 0.54 K/uL 06/10/2025 9:52 AM EDT [facility] Absolute Basophil Count 0.07 0.01 - 0.08 K/uL 06/10/2025 9:52 AM EDT [facility] Immature Granulocyte (Atkinson, Myelo, Promyelocyte) 0.8(H) 0.0 - 0.6 % 06/10/2025 9:52 AM EDT [facility] Absolute Immature Granulocyte (Atkinson, Myelo, Promyelocyte) 0.16(H) 0.00 - 0.09 K/uL 06/10/2025 9:52 AM EDT [facility] Blood PERIPHERAL BLOOD SPECIMEN / Unknown Venipuncture / Unknown 06/10/2025 7:20 AM EDT 06/10/2025 7:30 AM EDT us Feliciano Choi MD LAB BLOOD ORDERABLES Final Re sult [facility] [address] [place] [address], [place] * (ABNORMAL) Manual Diff and Morph (06/02/2025 5:41 AM EDT) Only the most recent of5 resultswithin the time period is included. Neutrophil 73(H) 34 - 71 % 06/02/2025 8:02 AM EDT [facility] Lymphocyte 12(L) 19 - 53 % 06/02/2025 8:02 AM EDT [facility] Monocyte 7 5 - 13 % 06/02/2025 8:02 AM EDT [facility] Eosinophil 0(L) 1 - 7 % 06/02/2025 8:02 AM EDT [facility] Basophil 0 0 - 1 % 06/02/2025 8:02 AM EDT [facility] Band 4 0 - 5 % 06/02/2025 8:02 AM EDT [facility] Metamyelocyte 2(H) <=0 % 06/02/2025 8:02 AM EDT [facility] Myelocyte 2(H) <=0 % 06/02/2025 8:02 AM T [facility] Absolute Neutrophil Count 15.65(H) 1.60 - 6.10 K/uL 06/02/2025 8:02 AM T [facility] Absolute Lymphocyte Count 2.44 1.20 - 3.70 K/uL 06/02/2025 8:02 AM T [facility] Absolute Monocyte Count 1.42(H) 0.20 - 0.80 K/uL 06/02/2025 8:02 AM EDT [facility] Absolute Eosinophil Count 0.00(L) 0.04 - 0.54 K/uL 06/02/2025 8:02 AM T [facility] Absolute Basophil Count 0.00(L) 0.01 - 0.08 K/uL 06/02/2025 8:02 AM T [facility] Platelet Est Normal Normal 06/02/2025 8:02 AM T [facility] ANISOCYTOSIS 1+ 06/02/2025 8:02 AM T [facility] Microcytosis 1+ 06/02/2025 8:02 AM T [facility] Poikilocytosis 1+ 06/02/2025 8:02 AM T [facility] ACANTHOCYTES 1+ 06/02/2025 8:02 AM T [facility] OVALOCYTES 1+ 06/02/2025 8:02 AM T [facility] SCHISTOCYTES 1+ 06/02/2025 8:02 AM T [facility] SPHEROCYTES 1+ 06/02/2025 8:02 AM T [facility] TEAR DROP CELLS 1+ 8:02 AM T [facility] Total Cells Counted 100 06/02/2025 8:02 AM T [facility] Blood PERIPHERAL BLOOD SPECIMEN / Unknown Venipuncture / Unknown 06/02/2025 5:41 AM EDT 06/02/2025 5:45 AM EDT us Rabia Vealsco MD LAB BLOOD ORDERABLES Final Resul t [facility] [address] [place] [address], [place] * XR Abdomen Portable (05/29/2025 11:22 AM EDT) Only the most recent of5 resultswithin the time period is included. Anatomical Region Laterality Modality Abdomen Digital Radiogra phy 05/29/2025 5:03 PM EDT Impressions 05/30/2025 4:26 PM EDT No significant stool burden. Normal gas distribution throughout large and small bowel loops. BY ELECTRONICALLY SIGNING THIS REPORT, I THE ATTENDING PHYSICIAN ATTEST THAT I HAVE REVIEWED THE IMAGES FOR THE ABOVE PROCEDURE(S) AND AGREE WITH THE FINDINGS DOCUMENTED. Miguelito Mccarty MD, electronically signed on May 30 2025 [...] or radiopaque foreign bodies. Procedure Note Shahrzad Mccarty MD - 05/30/2025 INDICATION: bowel gas and [...] PROCEDURE(S) AND AGREE WITHTHE FINDINGS DOCUMENTED. Miguelito Mccarty MD, electronically signed on May 30 2025 04:26PM us Rabia Velasco MD IMG DIAGNOSTIC IMAGING ORDERABLE S Final Result * RBC WBC PLT Morphology (05/29/2025 6:20 AM EDT) Only the most recent of2 resultswithin the time period is included. Pathologist [facility] Platelet Est Normal Normal 05/29/2025 8:13 AM EDT [facility] ANISOCYTOSIS 1+ 05/29/2025 8:13 AM EDT [facility] Microcytosis 1+ 05/29/2025 8:13 AM EDT [facility] POLYCHROMASIA 1+ 05/29/2025 8:13 AM EDT [facility] Poikilocytosis 1+ 05/29/2025 8:13 AM EDT [facility] OVALOCYTES 1+ 05/29/2025 8:13 AM EDT [facility] SPHEROCYTES 1+ 05/29/2025 8:13 AM EDT [facility] TEAR DROP CELLS 1+ 8:13 AM EDT [facility] ACANTHOCYTES 1+ 05/29/2025 8:13 AM EDT [facility] Blood PERIPHERAL BLOOD SPECIMEN / Unknown Venipuncture / Unknown 05/29/2025 6:20 AM EDT 05/29/2025 6:29 AM EDT us Rabia Velasco MD LAB BLOOD ORDERABLES Final Resul t [facility] [address] [place] [address], * (ABNORMAL) C-Reactive Protein (05/28/2025 5:53 AM EDT) Only the most recent of2 resultswithin the time period is included. Pathologist [facility] C-Reactive Protein (CRP) >300.0(H) 0.0 - 5.0 mg/L 05/28/2025 12:39 PM EDT [facility] Blood PERIPHERAL BLOOD SPECIMEN / Unknown Venipuncture / Unknown 05/28/2025 5:53 AM EDT 05/28/2025 6:01 AM EDT us Rabia Velasco MD LAB BLOOD ORDERABLES Final Resul t [facility] [address] [place] [address], [place] * CT Angiogram Chest PE : Arteriogram [...] electronically signed on May 28 2025 01:10PM us Rabia Velasco MD IMG CT ORDERABLES Final Result * CT Head Without Contrast (2025 8:54 PM EDT) Only the most recent of2 resultswithin the time period is included. Anatomical Region Laterality Modality Head Computed Tomogra [...] 3 Hour Reflex (2025 8:28 PM EDT) Only the most recent of2 resultswithin the time period is included. Lactic Acid 1.9 0.5 - 2.0 mmol/L 2025 8:34 PM EDT [facility] Blood PERIPHERAL BLOOD SPECIMEN / Unknown Venipuncture / Unknown 2025 8:28 PM EDT 2025 8:31 PM EDT us Rabia Velasco MD LAB BLOOD ORDERABLES Final Resul t [facility] [address] [place] [address], * (ABNORMAL) Blood Gas, Venous (2025 8:28 PM EDT) Only the most recent of2 resultswithin the time period is included. pH, Venous 7.47(H) 7.35 - 7.45 2025 8:35 PM EDT [facility] pCO2, Venous 41 35 - 45 mmHg 2025 8:35 PM EDT [facility] pO2, Venous 82 80 - 105 mmHg 2025 8:35 PM EDT [facility] HCO3, Venous 30 21 - 30 mmol/L 2025 8:35 PM EDT [facility] Carboxyhemoglo bin, VBG 1.6(H) 0.5 - 1.5 % 2025 8:35 PM EDT [facility] Methemoglobin, VBG 1.0(H) 0.2 - 0.6 % 2025 8:35 PM EDT [facility] Blood Venipuncture / Unknown 2025 8:28 PM EDT 2025 8:31 PM EDT us Rabia Velasco MD LAB BLOOD ORDERABLES Final Resul t [facility] [address] [place] [address], * (ABNORMAL) Comprehensive Metabolic Panel (2025 8:23 PM EDT) Only the most recent of3 resultswithin the time period is included. Sodium 145 135 - 147 mmol/L 2025 9:04 PM EDT [facility] Potassium 4.0 3.5 - 5.4 mmol/L 2025 9:04 PM EDT [facility] Chloride 106 96 - 108 mmol/L 2025 9:04 PM EDT [facility] Total CO2/Bicarbonate 27 22 - 32 mmol/L 2025 9:04 PM EDT [facility] Anion Gap 12 10 - 18 mmol/L 2025 9:04 PM EDT [facility] BUN 36(H) 6 - 20 mg/dL 2025 9:04 PM EDT [facility] Creatinine, Blood 0.90 0.50 - 1.20 mg/dL 2025 9:04 PM EDT [facility] Glucose, Blood 168(H) 70 - 100 mg/dL 2025 9:04 PM EDT [facility] Calcium 9.1 8.4 - 10.3 mg/dL 2025 9:04 PM EDT [facility] Total Protein 6.5 6.4 - 8.3 g/dL 2025 9:04 PM EDT [facility] Albumin, Blood 2.9(L) 3.5 - 5.2 g/dL 2025 9:04 PM EDT [facility] Globulin Result 3.6 2.0 - 4.0 g/dL 2025 9:04 PM EDT [facility] AST (SGOT) 15 0 - 40 U/L 2025 9:04 PM EDT [facility] ALT (SGPT) 8 0 - 40 U/L 2025 9:04 PM EDT [facility] Alkaline Phosphatase 125 40 - 130 U/L 2025 9:04 PM EDT [facility] Total Bilirubin 0.2 0.0 - 1.5 mg/dL 2025 9:04 PM T [facility] Blood PERIPHERAL BLOOD SPECIMEN / Unknown Venipuncture / Unknown 2025 8:23 PM EDT 2025 8:27 PM EDT us Rabia Velasco MD LAB BLOOD ORDERABLES Final Resul t [facility] [address] [place] [address], [place] * Culture, Respiratory (Incl Gram) (2025 5:55 PM EDT) Respiratory Culture Heavy growth commensal respiratory nica STEPHEN 05/31/2025 2:23 PM EDT [facility] Smear,Gram Stain >25 PMNs and <10 epithelial cells/100X field 05/31/2025 2:23 PM EDT [facility] Smear,Gram Stain 4+ Multiple Organisms Present Consistent with Oropharyngeal Nica 05/31/2025 2:23 PM EDT [facility] Respiratory SPUTUM SPECIMEN OBTAINED BY SPUTUM INDUCTION / Unknown Collection / Unknown 2025 5:55 PM EDT 2025 6:16 PM EDT us Rabia Velasco MD MICROBIOLOGY - GENERAL ORDERABLE S Final Result Performing Organization Address [facility] Phone Number [facility] [address] [place] [address], [place] * Nasal MRSA/SA By PCR (2025 3:35 PM EDT) MRSA PCR Negative Negative 05/28/2025 10:52 AM EDT [facility] S. aureus PCR Negative Negative 05/28/2025 10:52 AM EDT [facility] Swab BOTH ANTERIOR NARES / Unknown 2025 3:35 PM EDT 2025 4:00 PM EDT Narrative [facility] - 05/28/2025 10:52 AM EDT Test performed by Gene[employer]pert real-time PCR. us Rabia Velasco MD MICROBIOLOGY - GENERAL ORDERABLE S Final Result Performing Organization Address [facility] Phone Number [facility] [address] [place] [address], * XR Chest 1 VW Portable (2025 11:34 AM EDT) Only the most recent of6 resultswithin the time period is included. Anatomical Region Laterality Modality Chest Digital Radiogra [...] DIAGNOSTIC IMAGING ORDERABLE S Final Result * Urine Micro Hold (05/25/2025 5:11 AM EDT) Only the most recent of3 resultswithin the time period is included. Micro Urine Reflex Hold Received 05/25/2025 8:01 AM EDT [facility] AP Urine MID-STREAM URINE SPECIMEN / Unknown Collection / Unknown 05/25/2025 5:11 AM EDT 05/25/2025 5:15 AM EDT us Rabia Velasco MD URINE ORDERABLES Final Result [facility] AP [address] [place] [address], [place] * (ABNORMAL) Urinalysis with Reflex to Urine Culture (05/25/2025 5:11 AM EDT) Only the most recent of3 resultswithin the time period is included. Color, Urine Yellow Yellow, Colorless, Straw 05/25/2025 5:41 AM EDT [facility] Clarity, Urine Clear Clear 05/25/2025 5:41 AM EDT [facility] pH, Urine 7.5 5.0 - 8.0 05/25/2025 5:41 AM EDT [facility] Protein, Urine 50 mg/dL(A) Negative 05/25/2025 5:41 AM EDT [facility] Glucose, Urine Negative Negative 05/25/2025 5:41 AM EDT [facility] Ketone, Urine Negative Negative 05/25/2025 5:41 AM EDT [facility] Bilirubin, Urine Negative Negative 05/25/2025 5:41 AM EDT [facility] Urobilinogen, Urine Normal 0.2-1.0 mg/dL 05/25/2025 5:41 AM EDT [facility] Blood, Urine Negative Negative 05/25/2025 5:41 AM EDT [facility] Leukocyte Esterase, Urine Negative Negative 05/25/2025 5:41 AM EDT [facility] Nitrite, Urine Negative Negative 05/25/2025 5:41 AM EDT [facility] Specific [place], Urine 1.029 1.001 - 1.050 05/25/2025 5:41 AM EDT [facility] White Blood Cells, Urine <1 0 - 5 /hpf 05/25/2025 5:41 AM EDT [facility] Red Blood Cells, Urine 2 0 - 2 /hpf 05/25/2025 5:41 AM EDT [facility] Urine MID-STREAM URINE SPECIMEN / Unknown Collection / Unknown 05/25/2025 5:11 AM EDT 05/25/2025 5:15 AM EDT Rabia Velasco MD URINE ORDERABLES Final Result [facility] [address] [place] [address], [place] * Culture, Blood (05/24/2025 6:58 PM EDT) Culture No growth after 5 days STEPHEN 05/29/2025 9:02 PM EDT [facility] Blood PERIPHERAL BLOOD SPECIMEN / Unknown Venipuncture / Unknown 05/24/2025 6:58 PM EDT 05/24/2025 7:02 PM EDT us Rabia Velasco MD MICROBIOLOGY - GENERAL ORDERABLE S Final Result Performing Organization Address [facility] Co de Phone Number [facility] [address] [place] [address], [place] * (ABNORMAL) Coronavirus SARS-CoV-2, Influenza A/B and RSV (05/24/2025 10:28 AM EDT) Only the most recent of2 resultswithin the time period is included. Pathologist [facility] Coronavirus SARS-CoV-2 Positive(A) Negative 05/24/2025 11:10 AM EDT [facility] Influenza A Negative Not Detected by PCR 05/24/2025 11:10 AM EDT [facility] Influenza B Negative Not Detected by PCR 05/24/2025 11:10 AM EDT [facility] RSV by PCR Negative Not Detected by PCR 05/24/2025 11:10 AM EDT [facility] Respiratory SWAB OF INTERNAL NOSE / Unknown Collection / Unknown 05/24/2025 10:28 AM EDT 05/24/2025 10:29 AM EDT Narrative [facility] - 05/24/2025 11:10 AM EDT Test performed by GeneXpert real-time PCR. us Rabia Velasco MD BODY FLUIDS AND STOOLS ORDERABLE S Final Result Performing Organization Address City/[facility]/ZIP Co de Phone Number [facility] [address] [place] [address], [place] * IR G Tube Rescue (05/12/2025 5:00 PM EDT) Only the most recent of2 resultswithin the time period is included. Anatomical Region Laterality Modality X-Ray Angiograph y [...] dysphagia maintained with [facility]ISON: None available. TECHNIQUE: OPERATORS: Dr. [...] MD IMG IR ORDERABLES Final Result * Respiratory Viral, Molecular (05/07/2025 12:20 PM EDT) Coronavirus SARS-CoV-2 Negative Negative 05/07/2025 6:15 PM EDT [facility] Influenza A, PCR Negative Negative 05/07/20 6:15 PM EDT [facility] Influenza B, PCR Negative Negative 05/07/20 6:15 PM EDT [facility] RSV by PCR Negative Negative 05/07/2025 6:15 PM EDT [facility] Respiratory SWAB OF INTERNAL NOSE / Unknown Collection / Unknown 05/07/2025 12:20 PM EDT 05/07/2025 12:33 PM EDT Narrative [facility] - 05/07/2025 6:15 PM EDT Test performed with [employer] Resp-4-Plex PCR assay, which has received emergency use authorization (EUA) by the U.S.Food and Drug Administration. Test performance verified by [facility] [address], [place] Dr. Dunia Adames MD. CLIA [id number], CAP [id number] . Mohinder Johnson MD BODY FLUIDS AND STOOLS ORDERAB LES Final Result [facility] [address] [place] [address], [place] [phone] * EEG 24 Hour Continuous Video EEG (LTM) (05/01/2025 6:30 AM EDT) Anatomical Region Laterality Modality EEG Impressions 05/04/2025 9:47 AM EDT Abnormal EEG due to - intermittent background 5-7Hz theta slowing while awake Note on seizure risk / [id number] scores: Interpretation of scores the risk of [...] <5%. Assessment of the Validity of the 9YRQSF2Q Score for Inpatient Seizure Risk Prediction. DEB Neurol. 2020 Jan 1;77(4):500503. TECHNICAL DETAILS: This is a digital video [...] EPILEPTIFORM DISCHARGES: None EVENTS: None ECG: Unremarkable 1ZWJSY8P score (on day 1 of EEG): 0 us Mildred Srinivasan MD NEUROLOGY ORDERABLES Final Resu lt * EEG 24 Hour Continuous Video EEG (LTM) (04/30/2025 2:04 PM EDT) Anatomical Region Laterality Modality EEG Impressions 05/01/2025 9:40 AM EDT Abnormal EEG due to - intermittent background 5-7Hz theta slowing while awake Note on seizure risk / 6IQMID7U scores: Interpretation of scores the risk of [...] <5%. Assessment of the Validity of the 6RZNMB1O Score for Inpatient Seizure Risk Prediction. DEB [...] EPILEPTIFORM DISCHARGES: None EVENTS: None ECG: Unremarkable 6TABXG1Q score (on day 1 of EEG): 0 us Mildred Srinivasan MD NEUROLOGY ORDERABLES Final Resu lt * (ABNORMAL) Urinalysis with Sediment (04/30/2025 12:21 PM EDT) Color, Urine Yellow Yellow, Colorless, Straw 04/30/2025 12:40 PM EDT [facility] Clarity, Urine Hazy(A) Clear 04/30/2025 12:40 PM EDT [facility] pH, Urine 7.0 5.0 - 8.0 04/30/2025 12:40 PM EDT [facility] Protein, Urine Negative Negative 04/30/2025 12:40 PM EDT [facility] Glucose, Urine Negative Negative 04/30/2025 12:40 PM EDT [facility] Ketone, Urine Negative Negative 04/30/2025 12:40 PM EDT [facility] Bilirubin, Urine Negative Negative 04/30/2025 12:40 PM EDT [facility] Urobilinogen, Urine Normal 0.2-1.0 mg/dL 04/30/2025 12:40 PM EDT [facility] Blood, Urine Negative Negative 04/30/2025 12:40 PM EDT [facility] Leukocyte Esterase, Urine Negative Negative 04/30/2025 12:40 PM EDT [facility] Nitrite, Urine Negative Negative 04/30/2025 12:40 PM EDT [facility] Specific [place], Urine 1.016 1.001 - 1.050 04/30/2025 12:40 PM EDT [facility] White Blood Cells, Urine <1 0 - 5 /hpf 04/30/2025 12:40 PM EDT [facility] Red Blood Cells, Urine <1 0 - 2 /hpf 04/30/2025 12:40 PM EDT [facility] Urine MID-STREAM URINE SPECIMEN / Unknown Collection / Unknown 04/30/2025 12:21 PM EDT 04/30/2025 12:35 PM EDT Mildred Srinivasan MD URINE ORDERABLES Final Result Performing Organization Address City/[facility]/ZIP Co de Phone Number [facility] [address] [place] [address], [place] * (ABNORMAL) D-dimer (04/30/2025 10:14 AM EDT) D-Dimer 605(H) <=500 ng/mL FEU 04/30/2025 10:37 AM EDT [facility] Comment:In ambulatory patien ts with low pre-test probability (Wells Criteria); D-Dimer <500 can be used to exclude venous thomboembolic disease. Blood PERIPHERAL BLOOD SPECIMEN / Unknown Venipuncture / Unknown 04/30/2025 10:14 AM EDT 04/30/2025 10:20 AM EDT Mildred Srinivasan MD LAB BLOOD ORDERABLES Final Resu lt [facility] [address] [place] [address], [place] * Lactate Dehydrogenase, Blood (04/30/2025 10:10 AM EDT) Lactate Dehydrogenase (LDH) 192 94 - 250 U/L 04/30/2025 11:07 AM EDT [facility] Blood PERIPHERAL BLOOD SPECIMEN / Unknown Venipuncture / Unknown 04/30/2025 10:10 AM EDT 04/30/2025 10:20 AM EDT us Mildred Srinivasan MD LAB BLOOD ORDERABLES Final Resu lt [facility] [address] [id number], * (ABNORMAL) CK (Creatine Kinase) (04/30/2025 10:10 AM EDT) Only the most recent of3 resultswithin the time period is included. Creatine Kinase Total (CK) 35(L) 47 - 322 U/L 04/30/2025 11:07 AM EDT [facility] Blood PERIPHERAL BLOOD SPECIMEN / Unknown Venipuncture / Unknown 04/30/2025 10:10 AM EDT 04/30/2025 10:20 AM EDT us Mildred Srinivasan MD LAB BLOOD ORDERABLES Final Resu lt Performing Organization Address City/[facility] Co de Phone Number [facility] [address] [place] [address], [place] * EEG 24 Hour Continuous Video EEG (LTM) (04/24/2025 9:35 AM EDT) Anatomical Region Laterality Modality EEG Impressions 04/25/2025 12:15 PM EDT Normal EEG in the awake, drowsy, and asleep states. Note on seizure risk / 1QHUJR6L scores: Interpretation of scores the risk of [...] <5%. Assessment of the Validity of the 5UUVEM9F Score for Inpatient Seizure Risk Prediction. DEB [...] with rates of 80 to 100 bpm. 2GUTWO0I score (on day 1 of EEG): 1 [...] no epileptiform features or electrographic seizures. Attending: Giuseppe Ojeda MD Note on seizure risk / 3CLZHS8T scores: Interpretation of scores the risk of [...] <5%. [Assessment of the Validity of the 3YCENT6F Score for Inpatient Seizure Risk Prediction. DEB Neurol. 2020 Jan 20;77(4):500-507.] Narrative 04/23/2025 2:52 PM EDT Table formatting from the original result was not included. CLINICAL NEUROPHYSIOLOGY LAB Department of Neurology [address] [place] [address] ; [phone] Name: Carter Raymundo : 1955 Age: 69 [...] discharges. SEIZURES: There were no electrographic seizures. RESUME SPECIALIST: Showed a generally regular rhythm, often with rates of 80 to 100 bpm. EVENTS: There were no pushbutton activations. 7HRSKY8O score (Day1): 0 us Bonifacio Agudelo MD [...] no epileptiform features or electrographic seizures. Attending: Giuseppe Ojeda MD Note on seizure risk / 1YUMNR3F scores: Interpretation of scores the risk of [...] <5%. [Assessment of the Validity of the 3UAHSN5Z Score for Inpatient Seizure Risk Prediction. DEB Neurol. 2020 Jan 1;77(4):500-507.] Narrative 04/23/2025 1:07 PM EDT Table formatting from the original result was not included. CLINICAL NEUROPHYSIOLOGY LAB Department of Neurology [facility] [address] [address] ; [phone] Name: Carter Raymundo : 1955 Age: 69 [...] discharges. SEIZURES: There were no electrographic seizures. RESUME SPECIALIST: Showed a generally regular rhythm, often with a rate of about 100 bpm. EVENTS: There were no pushbutton activations. 9NLRRE0Q score (Day1): 0 us Bonifacio Agudelo MD NEUROLOGY ORDERABLES Final Resul t * Prolactin (04/22/2025 12:02 PM EDT) [facility] Prolactin, Blood 14.0 4.0 - 15.0 ng/mL 04/22/2025 3:28 PM EDT [facility] Comment:Measured by Desiree El ecsys (ECLIA) version 2 which is largely unaffected by macroprolactin. Patient results determined by different manufacturers or methods may not be comparable. Blood PERIPHERAL BLOOD SPECIMEN / Unknown Venipuncture / Unknown 04/22/2025 12:02 PM EDT 04/22/2025 12:23 PM EDT us Bonifacio Agudelo MD LAB BLOOD ORDERABLES Final Resul t [facility] [address] [place] [address], [place] * Lactic Acid (04/22/2025 11:21 AM EDT) Lactic Acid 2.0 0.5 - 2.0 mmol/L 04/22/2025 11:42 AM EDT [facility] Blood Venipuncture / Unknown 04/22/2025 11:21 AM EDT 04/22/2025 11:24 AM EDT us Bonifacio Agudelo MD LAB BLOOD ORDERABLES Final Resul t [facility] [address] [place] [address], [place] * Vitamin D, 25-OH (04/17/2025 7:40 AM EDT) `Vitamin D 25-OH Level 38 30 - 60 ng/mL 04/17/2025 3:33 PM EDT [facility] Blood PERIPHERAL BLOOD SPECIMEN / Unknown Venipuncture / Unknown 04/17/2025 7:40 AM EDT 04/17/2025 7:53 AM EDT us Bonifacio Agudelo MD LAB BLOOD ORDERABLES Final Resul t Performing Organization Address City/[facility]/ZIP Co de Phone Number [facility] [address] [place] [address], [place] * XR Chest 2 VW (04/16/2025 2:55 PM EDT) Only the most recent of2 resultswithin the time period is included. Anatomical Region Laterality Modality Chest Digital Radiogra [...] DIAGNOSTIC IMAGING ORDERABL ES Final Result * Drug Screen, Urine (04/16/2025 6:54 AM EDT) Amphetamines Screen, Urine Presumptive Negative Presumptive Negative 04/16/2025 7:58 AM EDT [facility] Comment:[facility] amphetamine cu t-off is 1000 ng/mL. Barbiturates Screen, Urine Presumptive Negative Presumptive Negative 04/16/2025 7:58 AM EDT [facility] Comment:[facility] Barbiturate cu t-off of 200 ng/mL. Benzodiazepine Screen, Urine Presumptive Negative Presumptive Negative 04/16/2025 7:58 AM EDT [facility] Comment: [facility] Benzodiazepine cut-off is 300 ng/mL BENZODIAZEPINE IMMUNOASSAY SCREEN DOES NOT DETECT SOME DRUGS, INCLUDING LORAZEPAM, CLONAZEPAM, AND FLUNITRAZEPAM Cannabinoids Screen, Urine Presumptive Negative Presumptive Negative 04/16/2025 7:58 AM EDT [facility] Comment:[facility] Cannabinoids c ut-off is 50 ng/mL. Cocaine Metabolite Screen, Urine Presumptive Negative Presumptive Negative 04/16/2025 7:58 AM EDT [facility] Comment:[facility] Cocaine cut-of f is 300 ng/mL. Fentanyl Screen, Urine Presumptive Negative Presumptive Negative 04/16/2025 7:58 AM EDT [facility] Comment: [facility] Fentanyl cut-off 5.0 ng/mL. FENTANYL ASSAY DETECTS FENTANYL AND NORFENTANYL. FALSE POSITIVE RENTANYL RESULTS MAY OCCUR IN PATIENTS TAKING RISPERIDONE, TRAZADONE, AND LABETALOL. Methadone Screen, Urine Presumptive Negative Presumptive Negative 04/16/2025 7:58 AM EDT [facility] Comment: [facility] Methadone cut-off is 300 ng/mL. METHADONE ASSAY DETECTS METHADONE (NOT OTHER OPIATES/OPIOIDS; QUETIAPINE(SEROQUEL) MAY CAUSE A FALSE POSITIVE RESULT. Opiates Screen, Urine Presumptive Negative Presumptive Negative 04/16/2025 7:58 AM EDT [facility] Comment: [facility] Opiate cut-off is 300 ng/mL. OPIATE ASSAY DOES NOT RELIABLY DETECT SYNTHETIC OPIOIDS;SUCH METHADONE, OXYCODONE, FENTANYL, BUPRENORPHINE, TRAMADOL,;NALOXONE, MEPERIDINE. SEE ONLINE LAB MANUAL FOR DETAILS Oxycodone Screen, Urine Presumptive Negative Presumptive Negative 04/16/2025 7:58 AM EDT [facility] Comment:[facility] Oxycodone cut- off is 100 ng/mL. Urine URINE SPECIMEN / Unknown Collection / Unknown 04/16/2025 6:54 AM EDT 04/16/2025 7:17 AM EDT us Dane Morris MD URINE ORDERABLES Fin al Result [facility] [address] [place] [address], * (ABNORMAL) hs-Troponin T, 1hr (04/15/2025 11:33 PM EDT) Troponin T HS 83(H) <=19 ng/L 04/16/2025 12:19 AM EDT [facility] Comment: hs-cTnT<=19 ng/L in 99% of healthy individuals. hs-cTnT values of 30, 52, 100 and 1000 ng/L correspond to approximately CHARLIE Gen 4 of 0.01, 0.03, 0.1 and 1 ng/mL Blood PERIPHERAL BLOOD SPECIMEN / Unknown Venipuncture / Unknown 04/15/2025 11:33 PM EDT 04/15/2025 11:38 PM EDT us Dane Morris MD LAB BLOOD ORDERABLES Final Result Performing Organization Address City/[facility]/ZIP Co de Phone Number [facility] [address] [place] [address], [place] * BB Retype (04/15/2025 11:33 PM EDT) BB RETYPE Received 04/16/2025 8:[address] [facility] Blood Venipuncture / Unknown 04/15/2025 11:33 PM EDT 04/15/2025 11:48 PM EDT us Dane Morris MD BLOOD BANK TEST ORDE RABLES Final Result Performing Organization Address [facility] Co de Phone Number [facility] [address] [place] [address], [place] * Ammonia (04/15/2025 11:33 PM EDT) Ammonia umol/L 11 10 - 60 umol/L 04/16/2025 12:21 AM EDT [facility] Blood PERIPHERAL BLOOD SPECIMEN / Unknown Venipuncture / Unknown 04/15/2025 11:33 PM EDT 04/15/2025 11:37 PM EDT us Dane Morris MD LAB BLOOD ORDERABLES Final Result Performing Organization Address City/[facility]/ZIP Co de Phone Number [facility] [address] [place] [address], [place] * MRI Brain Without Contrast (04/15/2025 11:19 PM EDT) Anatomical Region Laterality Modality Head Magnetic Resonan ce 04/15/2025 11:4 7 PM EDT Impressions 04/16/2025 11:44 AM EDT No acute intracranial abnormality. Specifically, no acute or recent infarction. WET READ: WET READ:~No acute intracranial abnormality. Angel Luis Leda [phone] [id number]. BY ELECTRONICALLY SIGNING THIS REPORT, I THE ATTENDING PHYSICIAN ATTEST THAT I HAVE REVIEWED THE IMAGES FOR THE ABOVE PROCEDURE(S) AND AGREE WITH THE FINDINGS DOCUMENTED. MD Deny Riley MD, electronically signed on Apr 16 2025 11:44AM Narrative 04/16/2025 11:44 AM EDT EXAMINATION: MR BRAIN WO CONTRAST. [id number] MR HEAD. INDICATION: Stroke protocol. DR. DANE MORRIS. TECHNIQUE: Non-contrast multiplanar, multisequence MRI of the [...] - 04/16/2025 EXAMINATION: MR BRAIN WO CONTRAST. [id number] MR HEAD. INDICATION: Stroke protocol. DR. DANE MORRIS. TECHNIQUE: Non-contrast multiplanar, multisequence MRI of the [...] WET READ:~No acute intracranial abnormality. Angel Luis Leda [phone] [id number]. BY ELECTRONICALLY SIGNING THIS REPORT, I THE ATTENDING PHYSICIAN ATTESTTHAT I HAVE REVIEWED THE IMAGES FOR THE ABOVE PROCEDURE(S) AND AGREE WITHTHE FINDINGS DOCUMENTED. Danish MD Deny Mello MD, electronically signed on Apr 16 2025 11:44AM Dane Morris MD IMG MRI ORDERABLES F inal Result * (ABNORMAL) hs-Troponin T (reflex 1hr, 3hr) (04/15/2025 9:18 PM EDT) Pathologist [facility] Troponin T HS 85(H) <=19 ng/L 04/15/2025 10:59 PM EDT [facility] Comment: hs-cTnT<=19 ng/L in 99% of healthy individuals. hs-cTnT values of 30, 52, 100 and 1000 ng/L correspond to approximately CHARLIE Gen 4 of 0.01, 0.03, 0.1 and 1 ng/mL Blood PERIPHERAL BLOOD SPECIMEN / Unknown Venipuncture / Unknown 04/15/2025 9:18 PM EDT 04/15/2025 10:29 PM EDT Dane Morris MD LAB BLOOD ORDERABLES Final Result [facility] [address] [place] [address], * (ABNORMAL) Toxicology Screen, Blood (04/15/2025 9:18 PM EDT) Pathologist [facility] Acetaminophen Result,Blood <5 <5 =Not Detected ug/mL 04/15/2025 11:37 PM EDT [facility] Alcohol <10 <10 = Not Detected mg/dL 04/15/2025 11:37 PM EDT [facility] Salicylate Level, Blood <1(L) <4 = Not Detected mg/dL 04/15/2025 11:37 PM EDT [facility] Blood PERIPHERAL BLOOD SPECIMEN / Unknown Venipuncture / Unknown 04/15/2025 9:18 PM EDT 04/15/2025 10:29 PM EDT Dane Morris MD LAB BLOOD ORDERABLES Final Result [facility] [address] [place] [address], [place] * CT Angiogram Head Neck Code Stroke [...] large vascular territory infarction or hemorrhage. ~~Patent chilkat of [place] without evidence of substantial stenosis or occlusion.~~Patent bilateral cervical carotid and vertebral arteries without evidence of stenosis >70% by NASCET criteria, occlusion, or dissection .~~Full read pending by neuroradiology. ~ Valentin Mena [phone] [id number]: BY ELECTRONICALLY SIGNING THIS REPORT, I THE ATTENDING PHYSICIAN ATTEST THAT I HAVE REVIEWED THE IMAGES FOR THE ABOVE PROCEDURE(S) AND AGREE WITH THE FINDINGS DOCUMENTED. Red Pavon MD, electronically signed on Apr 16 2025 10:13AM Narrative 04/16/2025 10:13 AM EDT EXAMINATION: CTA HEAD/NECK STROKE [id number] CT HEAD NECK. INDICATION: 69-year-old male with [...] normal. CTA HEAD: The vessels of the chilkat of [place] and their principal intracranial branches [...] MD - 04/16/2025 EXAMINATION: CTA HEAD/NECK STROKE [id number] CT HEAD NECK. INDICATION: 69-year-old male with [...] normal. CTA HEAD: The vessels of the chilkat of [place] and their principal intracranialbranches are [...] acutelarge vascular territory infarction or hemorrhage. ~~Patent chilkat of[place] without evidence of substantial stenosis or occlusion.~~Patentbilateral cervical carotid and vertebral arteries without evidence of stenosis >70% by NASCET criteria,occlusion, or dissection .~~Full read pending by neuroradiology. ~ Valentin Mena [phone] [id number]: BY ELECTRONICALLY SIGNING THIS REPORT, I THE ATTENDING PHYSICIAN ATTESTTHAT I HAVE REVIEWED THE IMAGES FOR THE ABOVE PROCEDURE(S) AND AGREE WITHTHE FINDINGS DOCUMENTED. Red Pavon MD, electronically signed on Apr 16 2025 10:13AM Dane Morris MD IM CT ORDERABLES Fi nal Result * (ABNORMAL) Troponin (04/15/2025 6:17 PM EDT) Troponin T HS 82(H) <=19 ng/L 04/15/2025 6:59 PM EDT [facility] Comment: hs-cTnT<=19 ng/L in 99% of healthy individuals. hs-cTnT values of 30, 52, 100 and 1000 ng/L correspond to approximately CHARLIE Gen 4 of 0.01, 0.03, 0.1 and 1 ng/mL Blood PERIPHERAL BLOOD SPECIMEN / Unknown Venipuncture / Unknown 04/15/2025 6:17 PM EDT 04/15/2025 6:20 PM EDT Dane Morris MD LAB BLOOD ORDERABLES Final Result Performing Organization Address City/[facility]/ZIP Co de Phone Number [facility] [address] [place] [address], [place] * (ABNORMAL) APTT (04/15/2025 6:17 PM EDT) PTT 42(H) 25 - 36 s 04/15/2025 7:35 PM EDT [facility] Blood PERIPHERAL BLOOD SPECIMEN / Unknown Venipuncture / Unknown 04/15/2025 6:17 PM EDT 04/15/2025 6:20 PM EDT us Dane Morris MD LAB BLOOD ORDERABLES Final Result Performing Organization Address [facility]/ZIP Co de Phone Number [facility] [address] [place] [address], [place] * Prothrombin Time - INR (04/15/2025 6:17 PM EDT) Prothrombin Time 11.6 9.4 - 12.5 s 04/15/2025 7:35 PM EDT [facility] INR 1.1 0.9 - 1.1 04/15/2025 7:35 PM EDT [facility] Blood PERIPHERAL BLOOD SPECIMEN / Unknown Venipuncture / Unknown 04/15/2025 6:17 PM EDT 04/15/2025 6:20 PM EDT Dane Morris MD LAB BLOOD ORDERABLES Final Result [facility] [address] [place] [address], [place] * Type and Screen (04/15/2025 6:17 PM EDT) ABO and Rh B POS 04/15/2025 7:[address] [facility] Antibody Screen NEG 7:[address] [facility] TS Expiration Date 04/18/2025 23:59 04/15/2025 7:42 PM EDT [facility] Blood Venipuncture / Unknown 04/15/2025 6:17 PM EDT 04/15/2025 6:41 PM EDT us Dane Morris MD BLOOD BANK TEST ORDE RABLES Final Result Performing Organization Address [facility]/ZIP Co de Phone Number [facility] [address] [place] [address], [place] * TSH (04/15/2025 6:17 PM EDT) TSH 1.50 0.27 - 4.20 uIU/mL 04/15/2025 10:40 PM EDT [facility] Blood PERIPHERAL BLOOD SPECIMEN / Unknown Venipuncture / Unknown 04/15/2025 6:17 PM EDT 04/15/2025 6:20 PM EDT Dane Morris MD LAB BLOOD ORDERABLES Final Result Performing Organization Address City/[facility]/ZIP Co de Phone Number [facility] [address] [place] [address], [place] * (ABNORMAL) Lipid Panel (01/20/2023 8:26 AM EDT) Cholesterol 157 <=199 mg/dL 01/20/2023 1:09 PM EDT [facility] Triglycerides 164(H) <150 mg/dL 01/20/2023 1:09 PM EDT [facility] HDL Cholesterol 49 >=40 mg/dL 3 1:09 PM EDT [facility] Risk Factor 3.2 <5.0 01/20/2023 1:09 PM EDT [facility] LDL Cholesterol 75 <100 mg/dL 3 1:09 PM EDT [facility] Blood BLOOD / Unknown 01/20/2023 8 :26 AM EDT 01/20/2023 8:45 AM EDT Narrative CONVERSION FROM [facility] EPIC - 01/20/2023 1:09 PM EDT Release to patient->Immediate Chuck Bell MD LAB BLOOD ORDERABLES Final Result CONVERSION FROM [facility] [address] [place] [address] from Last 3 Months or Most Recently Relevant to Health Maintenance Insurance MEDICARE MEDEX MEDICARE MEDEX Advance Directives Documents on File Type Date Recorded Patient Humidifier Operator Expl anation Health Care Proxy 04/17/2025 3:36 PM MOLST/POLST 09/12/2023 12:57 PM 08/05/23 Health Care Proxy 05/21/2025 11:52 AM Michael munson on Special Proceeding in RE: Health Care Proxy * Full Code (Latest Code Status on File) Date Activated Date Inactivated Comments 04/23/2025 12:54 PM Question Answer Comments Discussed with/per: Health Care Agent (P rimary or Alternate) Based on my assessment, the patient lacks capacity due to the following medical condition(s): Discussed with health care agent (brother) by Dr. Becerra Provider Instructions: Navigate to ACP a ctivity to activate the Surrogate Decision Maker * Full Code Date Activated Date Inactivated Comments 04/16/2025 2:50 PM 04/23/2025 12:54 PM Question Answer Comments Discussed with/per: Unable to Confirm Reason: Patient incapacitate d and unable to reach surrogate decision maker(s) * Full Code Date Activated Date Inactivated Comments 04/19/2019 1:57 PM 04/14/2024 5:48 PM * Full Code Date Activated Date Inactivated Comments 10/04/2018 9:31 AM 12/01/2018 6:39 PM * Full Code Date Activated Date Inactivated Comments 09/29/2015 9:07 PM 10/01/2015 11:49 PM Healthcare Agents on File Name Relationship Healthcare Agent Relationshi p Communication Delvin Raymundo Brother Health Care Agent Care Teams Manager Web Application Relationship Specialty Start Date End Date Kilo Valera Jr. [address] [place] [address] PCP - General 11/09/22
--- OUTSIDE RECORDS SUMMARY | 2025-06-25 21:35 | XMS_ITS | Referral Summary ---
Author Organization [facility] r Address [address] [place] [address] Phone Care Team Providers Care Funeral Director And Embalmer Name Role Phone Malcolm Edmondson MD Unavailable [...] Orientation Not on file Plan of Treatment Not on file Care Teams Funeral Director And Embalmer Relationship Specialty Start Date End Date Malcolm Edmondson MD [address] PCP - Insurance 04/08/15
--- OUTSIDE RECORDS SUMMARY | 2025-06-25 21:37 | XMS_ITS | Encounter Summary ---
Author Organization [facility] Address [address] [place] [address] Care Team Providers Care Chief I Dispatcher Name Role Phone Malcolm Edmondson Primary Care Provider [phone] System, Provider Not In Primary Care Provider Un available Kalyan, Johanna Alonso Primary Care Provider Unavai lable Kalyan, Johanna Alonso Primary Care Provider Unavai lable Unknown, Provider Primary Care Provider Unava ilable None, Pcp Primary Care Provider UnavailJohanna Sorto MD Primary Care Provider [phone] None, Pcp Primary Care Provider Skye Morton MD Primary Care Provider [phone] Kilo Valera Jr. Primary Care Provid er Encounter Details Date Type Department Care Team (Late st Contact Info) Description 11/29/2016 Orders Only [facility] - [address] [place] [address] Param Rhodes MD [address] [place] [address] Schizoaffective disorder, bipolar type (Primary Dx) Social History Tobacco Use Types [...] this encounter Visit Diagnoses Diagnosis Schizoaffective disorder, bipolar type (HCC)- Primary Schizoaffective disorder, unspecified condition documented in this encounter Additional Health Concerns [...] documented as of this encounter Care Teams Chief I Dispatcher Relationship Specialty Start Date End Date Malcolm Edmondson PCP - General 08/31/14 12/31/19 System, Provider Not In PCP - General 01/01/20 04/13/20 Johanna Biggs [address] [place] [address] [place] [address] PCP - General 04/14/20 10/27/20 Johanna Biggs [place] [address] PCP - General 10/28/20 01/03/21 Unknown, Provider, [address] [place] [address] PCP - General 01/04/21 03/10/21 None, Pcp, [address] [place] [address] PCP - General 03/11/21 11/22/21 Johanna Biggs MD [address] [place] [address] PCP - General Family Practice 11/23/21 05/29/22 Lisa, MD Rere [address] [place] [address] PCP - General 05/30/22 05/31/22 Skye De Leon MD [address] [place] [address] PCP - General Internal Medicine 06/01/22 11/08/22 Kilo Valera Jr. [address] [place] [address] PCP - General 11/09/22 documented as of this encounter
--- OUTSIDE RECORDS SUMMARY | 2025-06-25 21:37 | XMS_ITS | Encounter Summary ---
Author Organization [facility] Address [address] [place] [address] Care Team Providers Care Bung Dropper Name Role Phone Malcolm Edmondson Primary Care Provider [phone] System, Provider Not In Primary Care Provider Un available Kalyan, Johanna Alonso Primary Care Provider Unavai lable Kalyan, Johanna Alonso Primary Care Provider Unavai lable Unknown, Provider Primary Care Provider Unava ilable None, Pcp Primary Care Provider UnavailJohanna Sorto MD Primary Care Provider [phone] None, Pcp Primary Care Provider Skye Morton MD Primary Care Provider [phone] Kilo Valera Jr. Primary Care Provid er Encounter Details Date Type Department Care Team (Late st Contact Info) Description 11/29/2016 Orders Only [facility] 41 [facility] - [address] [place] [address] Param Rhodes MD [address] [place] [address] Schizoaffective disorder, bipolar type (Primary Dx) Social [...] documented as of this encounter Care Teams Bung Dropper Relationship Specialty Start Date End Date Malcolm Edmondson PCP - General 08/31/14 12/31/19 System, Provider Not In PCP - General 01/01/20 04/13/20 Johanna Biggs [address] [place] [address] [place] [address] PCP - General 04/14/20 10/27/20 Johanna Biggs [place] [address] PCP - General 10/28/20 01/03/21 Unknown, Provider, [address] [place] [address] PCP - General 01/04/21 03/10/21 None, Pcp, [address] [place] [address] PCP - General 03/11/21 11/22/21 Johanna Biggs MD [address] [place] [address] PCP - General Family Practice 11/23/21 05/29/22 Lisa, MD Rere [address] [place] [address] PCP - General 05/30/22 05/31/22 Skye De Leon MD [address] [place] [address] PCP - General Internal Medicine 06/01/22 11/08/22 Kilo Valera Jr. [address] [place] [address] PCP - General 11/09/22 documented as of this encounter
--- OUTSIDE RECORDS SUMMARY | 2025-06-25 21:37 | XMS_ITS | Encounter Summary ---
Author Organization [facility] Address [address] [place] [id number] Care Team Providers Care Sap Hana Architect Name Role Phone Malcolm Edmondson Primary Care Provider [phone] System, Provider Not In Primary Care Provider Un available Kalyan, Johanna Alonso Primary Care Provider Unavai lable Kalyan, Johanna Alonso Primary Care Provider Unavai lable Unknown, Provider Primary Care Provider Unava ilable None, Pcp Primary Care Provider UnavailJohanna Sorto MD Primary Care Provider [phone] None, Pcp Primary Care Provider UnavailSkye Chang MD Primary Care Provider [phone] Kilo Valera Jr. Primary Care Provid er Encounter Details Date Type Department Care Team (Late st Contact Info) Description 11/29/2016 Orders Only [facility] 41 [facility] - [address] [place] [address] Param Rhodes MD [address] [place] [address] Social History Tobacco Use Types Packs/Day Years [...] documented as of this encounter Care Teams Sap Hana Architect Relationship Specialty Start Date End Date Malcolm Edmondson PCP - General 08/31/14 12/31/19 System, Provider Not In PCP - General 01/01/20 04/13/20 Johanna Biggs [address] [place] [address] [place] [address] PCP - General 04/14/20 10/27/20 Johanna [place] [address] PCP - General 10/28/20 01/03/21 Unknown, Provider, [address] [place] [address] PCP - General 01/04/21 03/10/21 None, Pcp, [address] [place] [address] PCP - General 03/11/21 11/22/21 Johanna Biggs MD [address] [place] [address] PCP - General Family Practice 11/23/21 05/29/22 None, MD Rere [address] [place] [address] PCP - General 05/30/22 05/31/22 Skye De Leon MD [address] [place] [address] PCP - General Internal Medicine 06/01/22 11/08/22 Kilo Valera Jr. [address] [place] [address] PCP - General 11/09/22 documented as of this encounter
--- OUTSIDE RECORDS SUMMARY | 2025-06-25 21:37 | XMS_ITS | Encounter Summary ---
Author Organization [facility] Address [address] [place] [id number] Care Team Providers Care Machine Veneer Repairer Name Role Phone Malcolm Edmondson Primary Care Provider [phone] System, Provider Not In Primary Care Provider Un available Kalyan, Johanna Alonso Primary Care Provider Unavai lable Kalyan, Johanna Alonso Primary Care Provider Unavai lable Unknown, Provider Primary Care Provider Unava ilable None, Pcp Primary Care Provider Johanna Kidd MD Primary Care Provider [phone] None, Pcp Primary Care Provider Skye Morton MD Primary Care Provider [phone] Kilo Valera Jr. Primary Care Provid er Encounter Details Date Type Department Care Team (Late st Contact Info) Description 11/29/2016 Orders Only [facility] 41 [facility] - [address] [place] [address] Param Rhodes MD [address] [place] [address] Schizoaffective disorder (Primary Dx) Social History Tobacco Use Types [...] of this encounter Visit Diagnoses Diagnosis Schizoaffective disorder (HCC)- Primary Schizoaffective disorder, unspecified condition documented [...] documented as of this encounter Care Teams Machine Veneer Repairer Relationship Specialty Start Date End Date Malcolm Edmondson PCP - General 08/31/14 12/31/19 System, Provider Not In PCP - General 01/01/20 04/13/20 Johanna Biggs [address] [place] [address] [place] [address] PCP - General 04/14/20 10/27/20 Johanna Biggs [place] [address] PCP - General 10/28/20 01/03/21 Unknown, Provider, [address] [place] [address] PCP - General 01/04/21 03/10/21 None, Pcp, [address] [place] [address] PCP - General 03/11/21 11/22/21 Johanna Biggs MD [address] [place] [address] PCP - General Family Practice 11/23/21 05/29/22 None, MD Rere [address] [place] [address] PCP - General 05/30/22 05/31/22 Skye De Leon MD [address] [place] [address] PCP - General Internal Medicine 06/01/22 11/08/22 Kilo Valera Jr. [address] [place] [address] PCP - General 11/09/22 documented as of this encounter
--- OUTSIDE RECORDS SUMMARY | 2025-06-25 21:37 | XMS_ITS | Encounter Summary ---
Author Organization [facility] Address [address] [place] [address] Care Team Providers Care Nutritionalist Name Role Phone Kilo Valera Jr. Primary Care Provid er Encounter Details Date Type Department Care Team (Late st Contact Info) Description 12/23/2022 Lab [facility] Orders Mike Ewing MD [address] [place] [address] Social History Tobacco Use Types Packs/Day Years [...] Industry Job Start Date Job End Date [employer] Not on file Not on file Not on file documented as of this encounter Plan of Treatment Not on file documented as of this encounter Procedures Procedure Name Priority Date/Time Associated Diagnosis Comments LEGIONELLA URINARY ANTIGEN Routine 12/23/2022 7:46 AM EST STREP PNEUMONIAE URINE ANTIGEN Routine 12/23/2022 7:46 AM EST CULTURE, BLOOD STAT 12/23/2022 4:16 AM EST CULTURE, BLOOD STAT 12/23/2022 4:15 AM EST documented in this encounter Results * Legionella Urinary Antigen (12/23/2022 7:46 AM EST) Legionella pneumophila serogroup 1 antigen Negative Negative STEPHEN 12/23/2022 4:55 PM EST [facility] Comment:Suggesting no recent or current infection. Infection due to Legionella cannot be ruled out since other serogroups and species may cause disease, antigen may not be present in urine in the early infection, and the level of antigen present in the urine maybe below the detection limit of the test Urine MID-STREAM URINE SPECIMEN / Unknown 12/23/2022 7:46 AM EST 12/23/2022 3:28 PM EST us Len Goetz MD MICROBIOLOGY - GENERAL ORDERABLE S Final Result Performing Organization Address [facility] de Phone Number [facility] [address] [place] [address], * Strep Pneumoniae Urine Antigen (12/23/2022 7:46 AM EST) Strep pneumo Urine Antigen Negative Negative [facility] 12/23/2022 4:55 PM EST [facility] Comment:Suggesting no curren t or recent pneumococcal infection. Infection due to S. Pneumoniae can not be ruled out since the antigen present in the sample maybe below the detection limit of the test. Urine MID-STREAM URINE SPECIMEN / Unknown 12/23/2022 7:46 AM EST 12/23/2022 3:28 PM EST us Len Goetz MD MICROBIOLOGY - GENERAL ORDERABLE S Final Result Performing Organization Address [facility] Co de Phone Number [facility] [address] [place] [address], [place] [phone] * Culture, Blood (12/23/2022 4:16 AM EST) Pathologist [facility] Culture No growth after 5 days STEPHEN 12/28/2022 11:01 AM EST [facility] Blood PERIPHERAL NERVOUS SYSTEM STRUCTURE / Unknown 12/23/2022 4:16 AM EST 12/23/2022 10:14 AM EST us Mike Ewing MD MICROBIOLOGY - GENERAL ORDERABLE S Final Result Performing Organization Address City/[facility]/ZIP Co de Phone Number [facility] [address] [place] [address], [place] [phone] * Culture, Blood (12/23/2022 4:15 AM EST) Culture No growth after 5 days STEPHEN 12/28/2022 11:01 AM EST [facility] Blood PERIPHERAL NERVOUS SYSTEM STRUCTURE / Unknown 12/23/2022 4:15 AM EST 12/23/2022 10:14 AM EST us Mike Ewing MD MICROBIOLOGY - GENERAL ORDERABLE S Final Result Performing Organization Address [facility] Co de Phone Number [facility] [address] [place] [address], [place] [phone] documented in this encounter Visit Diagnoses Not on filedocumented [...] documented as of this encounter Care Teams Nutritionalist Relationship Specialty Start Date End Date Kilo Valera Jr. [address] [place] [address] PCP - General 11/09/22 documented as of this encounter
[2025-06-25 22:31] VITALS: BMI 22.3
[2025-06-25 22:55] VITALS: BP 139/83; PULSE 100; RESP 17; TEMP 36.3; O2SAT 94
--- NOTE | 2025-06-26 | ECG_ITS ---
Test Reason : TACHYCARDIA Blood Pressure : */* mmHG Vent. Rate : 107 BPM Atrial Rate : 107 BPM P-R Int : 138 ms QRS Dur : 98 ms QT Int : 356 ms P-R-T Axes : 57 -26 70 degrees QTcB Int : 475 ms Sinus tachycardia Moderate voltage criteria for LVH, may be normal variant ( R in aVL , [place] product ) Borderline ECG No previous ECGs available Referred By: Anna Chavira Electronically Signed By: Clifton Flowers
--- NOTE | 2025-06-26 02:53 | PM.EVENT ---
Event Note Date of Service: 06/26/25 Event Note: Earlier this evening received tiger message from charge nurse on [facility] regarding patient's admission and need for order for Jevity tube feeds. Reviewed patient's paperwork and was able to enter order for Jevity from 18:00 to 10:00 which will start this evening. Aspiration precautions also placed. Nutritional consultation also placed. Per patient's record he patient can also have pureed diet. Reviewed plan of care with charge nurse. Also reviewed orders which include water flushes as scheduled. Await further review by the primary school teacher for further advisement. Time Spent With Patient Time: Total time managing care of this patient today ____ minutes.
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
[2025-06-26 07:24] LABS: MANUAL DIFF FLAG NO
[2025-06-26 07:40] LABS: Hematocrit 35.2 % (42.0-52.0); Hemoglobin 12.0 g/dl (14.0-18.0); Imm Gran Abs Auto 0.17 X10*3/uL (0.00-0.03); Imm Gran Pct Auto 3.0 % (0.0-0.4); Lymphocytes Absolute Auto 1.0 X10*3/uL (1.2-4.9); Mean Corpuscular HGB Conc 34.1 g/dl (31.0-36.0); Mean Corpuscular Hemoglobin 31.1 pg (27.0-33.0); Mean Corpuscular Volume 91.2 fL (80.0-98.0); NRBC Abs Auto 0.000 X10*3/uL (0.0-0.012); NRBC Pct Auto 0.0 /100WBC (0.0-0.2); Platelet Count 196 X10*3/uL (160-400); Red Blood Count 3.86 X10*6/uL (4.60-5.80); White Blood Count 5.7 X10*3/uL (4.8-10.8)
[2025-06-26 07:54] LABS: Hemoglobin A1C 118.4351 umol/L; Total Hemoglobin (HGBA1C) 3109.7030 umol/L
[2025-06-26 08:18] LABS: Cholesterol 221 mg/dL (<200); HDL Cholesterol 41 mg/dL (>40); Magnesium 2.1 mg/dL (1.6-2.6); Triglycerides 231 mg/dL (<150)
[2025-06-26 08:28] LABS: Free T4 (Free Thyroxine) 0.90 ng/dL (0.71-1.85); Thyroid Stimulating Hormone 0.95 uIU/mL (0.32-4.0)
--- NOTE | 2025-06-26 08:28 | HO.PM.IMCN ---
History of Present Illness Data of Consult Service Date: 06/26/25 Primary Care Provider: Kilo Valera [facility] Reason for consult: Medical management 70-year-old male with a past medical history of schizoaffective disorder on clozapine, hypertension, chronic kidney disease, L4/L5 laminectomy, constipation, coronary artery disease, CKD, BPH, and GERD, oropharyngeal dysphagia with frequent aspiration, peg tube with feedings, drug-induced parkinsonism, who presented from a nursing facility with altered mental status and unresponsiveness. He presented to [facility] ED. who was admitted to the hospital. His hospital course was complicated by COVID pneumonia. Workup included a stroke and seizure workup which were both negative MRI of the brain and EEG were within normal limits. Despite improvement in his health he continued to demonstrate suicidal ideation and psychosis, therefore he is admitted here for further psychiatric treatment. While on inpatient he pulled his G-tube out twice, it was replaced in April. Patient did have a repeat barium swallow which demonstrated that he was still aspirating but there was some improvement from previous. Patient has a long history of dysphagia and swallowing studies and he is likely to be continued risk for aspiration and unlikely to be nutritional needs on a full p.o. diet. Patient was given p.o. intake for pleasure. Discussed with patient his aspiration risk with taking oral food and fluids. Patient is aware of risks of ongoing aspiration. Patient is alert and oriented x4. Aware of his situation. Consents to oral intake. Patient noted to be tachycardic. Review of Systems Review of Systems: Denies any shortness of breath, chest pain, dizziness, lightheadedness, abdominal pain or discomfort, nausea vomiting or diarrhea. Reports feeling anxious PMFSH Social History Household Members: Other Household Members Other:: Facility residents Housing: [facility] Do you presently have visiting nurse or other home services: No Patient Tobacco Use Status: Never used Tobacco Smoked in Last 30 Days: No e-Cigarette/Vaping Use: Never Used Patient Interested in Nicotine Replacement: No Patient Given Instructions on How to Stop Smoking: No Second Hand Smoke Exposure: No Currently Displaying Signs/Symptoms of Drug Intoxication Withdrawal: No Have you been hit, kicked, punched, or otherwise hurt by someone within the past year? If so, by whom?: No Do you feel safe in your current relationship?: No Current Relationship Is there a partner from a previous relationship who is making you feel unsafe now?: No Are you made to feel afraid or neglected: No Advance Directives: No Advance Directives Information Provided: No Advance Directives on File: No Do you have thoughts of harming others: None Do you have a plan to hurt others: No Plan Recently lost weight without trying: No How much weight loss: Not applicable Eating poorly because of decreased appetite: No Nutrition screen score: 0 Nutrition Risks: Difficulty swallowing, On aspiration precautions and Receiving home tube feeding or CPN Poor oral hygiene: No Meds Allergies Allergy/AdvReac Type Severity Reaction Status Date / Time No Known Allergies Allergy Verified 06/25/25 21:33 Active Medications: Current Medications Acetaminophen (Acetaminophen 325 Mg Tablet) 975 mg G-TUBE TID CLAUDIA Al Hydroxide/Mg Hydroxide (Magnesium Hydrox/Alum Hydrox 30 Ml Oral.Susp) 30 ml PO Q6H PRN PRN Reason: Heartburn/Nausea Albuterol/Ipratropium (Albuterol/Iprat 2.5/0.5mg 3 Ml Ampul.Neb) 3 ml INHALE RQ4H WHILE AWAKE PRN PRN Reason: sob Atorvastatin Calcium (Atorvastatin Calcium 20 Mg Tablet) 20 mg G-TUBE DAILY CLAUDIA Bisacodyl (Bisacodyl 10 Mg Supp.Rect) 10 mg RI DAILY PRN PRN Reason: Constipation Calcium Carbonate (Calcium Carbonate 750 Mg Tab.Chew) 1,500 mg G-TUBE TID PRN PRN Reason: Heartburn Clozapine (Clozapine 100 Mg Tablet) 200 mg G-TUBE BEDTIME CLAUDIA Clozapine (Clozapine 25 Mg Tablet) 25 mg G-TUBE DAILY REPLACED BY [facility] Enoxaparin Sodium (Enoxaparin Sodium 40 Mg/0.4 Ml Syringe) 40 mg SUBCUT Q24H CLAUDIA Famotidine (Famotidine 20 Mg Tablet) 20 mg G-TUBE BID CLAUDIA Last Admin: 06/26/25 01:45 Dose: Not Given Gabapentin (Gabapentin 300 Mg Capsule) 300 mg G-TUBE BEDTIME CLAUDIA Last Admin: 06/26/25 01:45 Dose: Not Given Gabapentin (Gabapentin 100 Mg Capsule) 100 mg G-TUBE DAILY CLAUDIA Guaifenesin (Guaifenesin 200 Mg/10 Ml 10 Ml Liquid) 10 ml G-TUBE Q4H PRN PRN Reason: Cough Haloperidol (Haloperidol 1 Mg Tablet) 2 mg G-TUBE BID PRN PRN Reason: agitation Haloperidol (Haloperidol 1 Mg Tablet) 1 mg G-TUBE DAILY CLAUDIA Haloperidol (Haloperidol 1 Mg Tablet) 3 mg G-TUBE BEDTIME CLAUDIA Last Admin: 06/26/25 01:45 Dose: Not Given Hydroxyzine HCl (Hydroxyzine Hcl 25 Mg Tablet) 25 mg PO Q6H PRN PRN Reason: mild anxiety Lactulose (Lactulose 320 Gm/480 Ml Solution) 20 gm RI BID CLAUDIA Last Admin: 06/26/25 01:45 Dose: Not Given Lidocaine (Lidocaine 4 % Patch Adh..Patch) 1 patch TRANSDERMA DAILY REPLACED BY [facility]; Protocol Magnesium Hydroxide (Milk Of Magnesia 30 Ml Oral.Susp) 30 ml PO DAILY PRN PRN Reason: Constipation Multivitamins/Minerals (Multivitamin With Minerals Liq 15 Ml Liquid) 15 ml G-TUBE DAILY REPLACED BY [facility] Non-Formulary Medication (Ramelteon) 8 mg PO BEDTIME REPLACED BY [facility] Polyethylene Glycol (Polyethylene Glycol 3350 17 Gm Powd.Pack) 17 gm G-TUBE BID REPLACED BY [facility] Last Admin: 06/26/25 01:45 Dose: Not Given Simethicone (Simethicone 80 Mg Tab.Chew) 80 mg PO Q6H PRN PRN Reason: Dyspepsia Tamsulosin HCl (Tamsulosin Hcl 0.4 Mg Capsule) 0.4 mg PO BEDTIME REPLACED BY [facility] Last Admin: 06/26/25 01:46 Dose: Not Given Trazodone HCl (Trazodone Hcl 50 Mg Tablet) 150 mg G-TUBE BEDTIME REPLACED BY [facility] Last Admin: 06/26/25 01:46 Dose: Not Given Valproic Acid (Valproic Acid Liquid 250 Mg/5 Ml Solution) 500 mg G-TUBE BID REPLACED BY [facility] Last Admin: 06/26/25 01:46 Dose: Not Given Home Medications ?Medication ?Instructions ?Recorded ?Confirmed ?Last Taken ?Type acetaminophen 500 mg tablet 1,000 mg feeding tube TID 06/25/25 06/25/25 06/25/25 09:40 History atorvastatin 20 mg tablet 20 mg feeding tube DAILY 06/25/25 06/25/25 06/24/25 21:00 History bisacodyl 10 mg rectal suppository 10 mg RI DAILY PRN Constipation 06/25/25 06/25/25 05/13/25 20:40 History calcium carbonate 1,000 mg feeding tube TID PRN 06/25/25 06/25/25 Unknown History Heartburn clozapine 100 mg tablet 200 mg feeding tube BEDTIME 06/25/25 06/25/25 06/24/25 21:07 History clozapine 25 mg tablet 25 mg feeding tube QAM 06/25/25 06/25/25 06/25/25 09:41 History diclofenac sodium 1 % topical gel 2 g topical QID PRN Pain 06/25/25 06/25/25 06/23/25 21:35 History enoxaparin 40 mg/0.4 mL 40 mg subcut DAILY 06/25/25 06/25/25 06/24/25 21:06 History subcutaneous syringe famotidine 20 mg tablet 20 mg feeding tube BID 06/25/25 06/25/25 06/25/25 09:41 History gabapentin 100 mg capsule 100 mg feeding tube QAM 06/25/25 06/25/25 06/25/25 09:40 History gabapentin 100 mg capsule 300 mg feeding tube BEDTIME 06/25/25 06/25/25 06/24/25 21:13 History guaifenesin 100 mg/5 mL oral liquid 200 mg feeding tube Q4H PRN Cough 06/25/25 06/25/25 06/23/25 04:05 History haloperidol 1 mg tablet 1 mg feeding tube QAM 06/25/25 06/25/25 06/25/25 09:04 History haloperidol 1 mg tablet 3 mg feeding tube BEDTIME 06/25/25 06/25/25 06/24/25 21:07 History haloperidol 2 mg tablet 2 mg feeding tube BID PRN Agitation 06/25/25 06/25/25 06/14/25 16:55 History ipratropium 0.5 mg-albuterol 3 mg 3 ml inhalation Q4H PRN Shortness 06/25/25 06/25/25 Unknown History (2.5 mg base)/3 mL nebulization Of Breath soln lactulose 10 gram/15 mL oral 20 g RI BID 06/25/25 06/25/25 06/25/25 09:40 History solution lidocaine 4 % topical patch 1 patch topical DAILY 06/25/25 06/25/25 06/24/25 09:40 History multivitamin with minerals 15 ml feeding tube DAILY 06/25/25 06/25/25 06/25/25 09:40 History polyethylene glycol 3350 17 gram 17 g feeding tube BID 06/25/25 06/25/25 06/25/25 09:40 History oral powder packet (Miralax) ramelteon 8 mg tablet 8 mg PO BEDTIME 06/25/25 06/25/25 06/24/25 21:06 History simethicone 80 mg chewable tablet 80 mg PO Q6H PRN Dyspepsia 06/25/25 06/25/25 06/20/25 10:10 History tamsulosin 0.4 mg capsule 0.4 mg PO BEDTIME 06/25/25 06/25/25 06/24/25 21:00 History trazodone 150 mg tablet 150 mg feeding tube BEDTIME 06/25/25 06/25/25 06/24/25 21:00 History valproic acid (as sodium salt) 250 500 mg feeding tube BID 06/25/25 06/25/25 06/24/25 09:40 History mg/5 mL oral solution Physical Exam Vital Signs and Narrative: Vital Signs: Last Vital Signs Temp 97.3 F 06/25/25 22:55 Pulse 100 06/25/25 22:55 Resp 17 06/25/25 22:55 BP 139/83 06/25/25 22:55 Pulse Ox 94 06/25/25 22:55 O2 Del Method Room Air 06/25/25 22:55 BMI result Body Mass Index 22.3 CONST: Alert and oriented, in NAD. Appears chronically ill, weak and deconditioned HEENT: Normocephalic, atraumatic, MMM, Eyes clear, Neck supple RESP: Lungs clear, RRR even and regular HEART:,RRR, S1, S2. Tachycardic, no edema GI:Abdomen Soft NT, ND. + BS times four :Deferred SKIN: Warm dry and intact, no visible lesions or rashes NEURO:CN II-XII Intact bilaterally, Sensation intact. Speech clear PSYCH: Normal affect Results Labs 06/26/25 07:13 Labs: Laboratory Results - last 24 hr 06/26/25 07:13 MCV 91.2 MCH 31.1 MCHC 34.1 RDW 15.9 Plt Count 196 MPV 9.2 L Immature Gran % (Auto) 3.0 H Neut % (Auto) 67.7 Lymph % (Auto) 18.1 L Emanuel % (Auto) 11.0 Eos % (Auto) 0.0 Baso % (Auto) 0.2 Lymph # (Auto) 1.0 L Emanuel # (Auto) 0.6 Eos # (Auto) 0.0 Baso # (Auto) 0.0 Abs Immat Gran (auto) 0.17 H Absolute Neuts (auto) 3.8 Absolute Nucleated RBC 0.000 Nucleated RBC % (auto) 0.0 Estimat Average Glucose 114 Hemoglobin A1c % 5.6 Magnesium 2.1 Triglycerides 231 H Cholesterol 221 H LDL Cholesterol, Calc 134 H HDL Cholesterol 41 Assessment and Plan (1) Dysphagia: Status: Acute Plan 70-year-old male admitted here after a prolonged 8 week hospitalization. Patient continued with suicidal ideation throughout the hospital stay therefore discharged here to inpatient [facility] for further treatment Schizoaffective disorder on clozapine Psychiatric team to follow Tachycardia Patient is asymptomatic, denies chest pain, dyspnea, palpitations or dizziness. No changes in mental status. Patient without anemia, TSH within normal limits no leukocytosis, Mag level WNL, CA+ WNL, CMP with slightly increased BUN. Continue Free water flushes EKG demonstrated Sinus Tach, BNP and troponin pending. Most likely related to Clozaril use. Patient is asymptomatic. Dysphagia and history of aspiration Patient with a tube feeding vital 1.5 at 85 mL/hour for 16 hours on as 18:00 off at 10:00. Free water flush 240 mg L every 4 hours Patient is at risk for aspiration. Out of bed for all meals, HOB elevated 30-45 degrees at all times. Patient did have repeat barium swallow in-hospital which demonstrated some improvement from previous, however he was still aspirating. Patient has a long history of dysphagia and swallowing studies and he is likely to be continued risk for aspiration and unlikely to be nutritional needs on a full p.o. diet. Patient was given p.o. intake for pleasure. He has been given ice cream and puddings in the hospital, he is aware of the risks of aspiration and is willing to accept that risk as he wants to eat soft foods. Speech language pathology to follow. HTN/CAD Increase lipitor to 40 mgs daily Constipation Continue lactulose b.i.d. Encourage out of bed daily, water intake GERD Continue Pepcid 20 mg b.i.d. L4/L5 laminectomy Continue gabapentin for spinal neuropathic pain CKD Follow labs, avoid nephrotoxins Creatinine 0.9 on discharge BPH Continue tamsulosin Thank you for allowing me to participate in the care of this patient. Will continue to follow. Please reconsult of any acute concerns or issues arise
[2025-06-26 08:45] LABS: Folate 12.3 ng/mL (> or = 4.0); Vitamin B12 629 pg/mL (200-900)
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
[2025-06-26] MEDS: Lidocaine 4 % Patch ADH..PATCH 1 PATCH TRANSDERMA (10:12)
[2025-06-26] MEDS: Valproic Acid Liquid 250 MG/5 ML SOLUTION 500 MG G-TUBE ×2 (10:13→21:03)
[2025-06-26 10:25] VITALS: BP 134/86; PULSE 126; RESP 16; TEMP 36.8; O2SAT 96
[2025-06-26 11:39] VITALS: BMI 22.3
--- NOTE | 2025-06-26 11:57 | MHC.CLN ---
NUTRITION PATIENT WITH DYSPHAGIA AND HX ASPIRATION. REQUIRES NUTRITION/HYDRATION VIA PEG. RECOMMEND VITAL 1.5 AT 85 ML PER HOUR X 16 HOURS (ON AT 18:00 HOURS, OFF AT 10:00 HOURS) FREE WATER FLUSH 240 ML Q 4 HOURS. PROVIDES 2040 KCAL (28 KCALS/KG), 91.8 G PROTEIN (1.3 G/KG), 2479 TOTAL ML FREE WATER FROM FORMULA AND FLUSH (34.1 ML/KG). FOLLOW FOR TUBE FEED TOLERANCE, POSSIBLE PO INTAKE. SEE CLINICAL NUTRITION ASSESSMENT 06/26/25.
[2025-06-26 13:36] LABS: Alanine Aminotransferase 23 U/L (0-40); Albumin Level 3.1 g/dL (3.5-5.0); Alkaline Phosphatase 120 U/L (39-117); Anion Gap 12 (12-20); Aspartate Amino Transferase 25 U/L (5-37); Blood Urea Nitrogen 26 mg/dL (9-16); Calcium 8.7 mg/dL (8.4-10.2); Carbon Dioxide 29 mmol/L (22-29); Chloride 109 mmol/L (96-108); Creatinine Clr Calc Pharmacy 83.4; Estimated Glomerular Filt Rate > 60; Potassium 4.6 mmol/L (3.3-5.1); Sodium 145 mmol/L (135-145); Total Protein 6.2 g/dL (6.5-8.0)
[2025-06-26] MEDS: Multivitamin with Minerals Liq 15 ML LIQUID G-TUBE (15:18)
[2025-06-26] MEDS: guaiFENesin 200 MG/10 ML 10 ML LIQUID G-TUBE ×2 (15:18→23:55)
[2025-06-26 15:57] LABS: Neut%MD 72.3 %; WBCANC 6.5 X10*3/uL
[2025-06-26 16:01] LABS: Creatinine Clr Calc Pharmacy 71.8; Estimated Glomerular Filt Rate > 60
[2025-06-26 16:03] LABS: Calcium 9.3 mg/dL (8.4-10.2); Magnesium 2.2 mg/dL (1.6-2.6)
[2025-06-26 16:10] LABS: B Type Natriuretic Peptide 78 pg/mL (<100); Troponin-I High Sensitivity 12.8 ng/L (<3.5-35.0)
--- NOTE | 2025-06-26 16:15 | PM.EVENT ---
Event Note Date of Service: 06/26/25 Event Note: Troponin and BNP and labs are within normal limits. If patient becomes symptomatic with tachycardia notify hospitalist team. Time Spent With Patient Time: Total time managing care of this patient today ____ minutes.
[2025-06-26] MEDS: Magnesium Hydrox/Alum Hydrox 30 ML ORAL.SUSP PO (17:11)
--- NOTE | 2025-06-26 17:52 | MHC.SLORD ---
Speech Language Pathology Order Status: Not appropriate for bedside swallow eval- Patient w/ known history of aspiration, s/p PEG placement, transferred from [facility] to our [facility] unit. Discussed w/ Marialuisa Serrano- Plan to obtain admission record w/ MBSS/Barium Swallow and speech notes.
[2025-06-26 20:00] VITALS: BP 129/73; PULSE 95; RESP 16; TEMP 36.4; O2SAT 98
[2025-06-27 06:12] VITALS: PULSE 84; RESP 18; O2SAT 95
[2025-06-27] MEDS: Albuterol/Iprat 2.5/0.5MG 3 ML AMPUL.NEB INHALE (06:12)
--- NOTE | 2025-06-27 06:23 | PC.NURSE ---
Addendum entered by Kayla Mendiola RN 06/27/25 06:49: Chest X-Ray results returned negative. Original Note: Carter presented with congested cough, thick phlegm in which he was unable to expectorate, BP 135/77; P 99; POX 95% AA; T36.3 C, Respiratory contacted, assessed lungs and performed CPT /updraft, reported adventitious lung sounds. Dr. Holland Allison (Hospitalist) updated and stat Chest X-Ray done. Results pending. Carter has DX of oropharyngeal dysphagia, GT feeding x 16 hours with pleasure foods. Known to be at risk for aspiration.
--- NOTE | 2025-06-27 07:40 | HO.PSYCHPN ---
Subjective Subjective Date of Service: 06/27/25 Reason For Visit: F25.0 Schizoaffective Subjective Notes: Conditional Voluntary Interim History: Met with patient. Discussed with Nursing. Speech and language review documentation and stated strict NPO until thorough speech evaluation and testing. On TPN. Overall reports mood is okay. Is some grandiosity, but this may also be patient's sense of humor for example mention something about writing a piece that is better than Kassi but also smiles at same. Denies paranoia or hallucinations. Sleep okay. No med concerns. Medication Compliance: Yes Side effects from medications: No Attending Groups: No Review of Systems NPO until further speech and language evaluation and testing Mental Status Exam Mental Status Exam Narrative: pleasant. Engaged. Probe early presented with fair hygiene. In bed on TPN. Alert and oriented. Articulate. Med of some grandiosity but also might be sense of humor with some statement. No overt paranoia or hallucinations. No depression. Some hopelessness. No active SI. No HI. Insight and judgment fair Diagnostics Vital Signs (24Hr): Vital Signs - 24 hr 06/26/25 10:25 06/26/25 20:00 06/27/25 06:12 Temperature 98.2 F 97.5 F Pulse Rate 126 H 95 84 Respiratory Rate 16 16 18 Blood Pressure 134/86 129/73 Pulse Oximetry 96 98 Oxygen Delivery Method Room Air Room Air BMI result Body Mass Index 22.3 Labs 06/26/25 07:13 06/27/25 07:25 Labs: Laboratory Results - last 48 hr 06/26/25 06/26/25 07:13 15:45 WBC 5.7 RBC 3.86 L Hgb 12.0 L Hct 35.2 L MCV 91.2 MCH 31.1 MCHC 34.1 RDW 15.9 Plt Count 196 MPV 9.2 L Immature Gran % (Auto) 3.0 H Neut % (Auto) 67.7 Lymph % (Auto) 18.1 L [place] % (Auto) 11.0 Eos % (Auto) 0.0 Baso % (Auto) 0.2 Lymph # (Auto) 1.0 L [place] # (Auto) 0.6 Eos # (Auto) 0.0 Baso # (Auto) 0.0 Abs Immat Gran (auto) 0.17 H Absolute Neuts (auto) 3.8 4.7 Absolute Nucleated RBC 0.000 Nucleated RBC % (auto) 0.0 Sodium 145 Potassium 4.6 Chloride 109 H Carbon Dioxide 29 Anion Gap 12 BUN 26 H Creatinine 0.87 1.01 Estim Creat Clear Calc 83.4 71.8 Estimated GFR > 60 > 60 Random Glucose 89 Estimat Average Glucose 114 Hemoglobin A1c % 5.6 Calcium 8.7 9.3 D Magnesium 2.1 2.2 Total Bilirubin 0.3 AST 25 ALT 23 Alkaline Phosphatase 120 H Troponin I High Sens 12.8 B-Natriuretic Peptide 78 Total Protein 6.2 L Albumin 3.1 L Triglycerides 231 H Cholesterol 221 H LDL Cholesterol, Calc 134 H HDL Cholesterol 41 Vitamin B12 629 Folate 12.3 TSH 0.95 Free T4 0.90 Medications Medications Current Medications Acetaminophen (Acetaminophen 325 Mg Tablet) 975 mg G-TUBE TID [facility] Last Admin: 06/26/25 21:03 Dose: 975 mg Al Hydroxide/Mg Hydroxide (Magnesium Hydrox/Alum Hydrox 30 Ml Oral.Susp) 30 ml PO Q6H PRN PRN Reason: Heartburn/Nausea Last Admin: 06/26/25 17:11 Dose: 30 ml Albuterol/Ipratropium (Albuterol/Iprat 2.5/0.5mg 3 Ml Ampul.Neb) 3 ml INHALE RQ4H WHILE AWAKE PRN PRN Reason: sob Last Admin: 06/27/25 06:12 Dose: 3 ml Atorvastatin Calcium (Atorvastatin Calcium 40 Mg Tablet) 40 mg G-TUBE DAILY CLAUDIA Bisacodyl (Bisacodyl 10 Mg Supp.Rect) 10 mg AK DAILY PRN PRN Reason: Constipation Calcium Carbonate (Calcium Carbonate 750 Mg Tab.Chew) 1,500 mg G-TUBE TID PRN PRN Reason: Heartburn Clozapine (Clozapine 100 Mg Tablet) 200 mg G-TUBE BEDTIME [facility] Last Admin: 06/26/25 21:15 Dose: 200 mg Clozapine (Clozapine 25 Mg Tablet) 25 mg G-TUBE DAILY [facility] Last Admin: 06/26/25 10:14 Dose: 25 mg Enoxaparin Sodium (Enoxaparin Sodium 40 Mg/0.4 Ml Syringe) 40 mg SUBCUT Q24H [facility] Last Admin: 06/26/25 13:05 Dose: 40 mg Famotidine (Famotidine 20 Mg Tablet) 20 mg G-TUBE BID [facility] Last Admin: 06/26/25 21:05 Dose: 20 mg Gabapentin (Gabapentin 300 Mg Capsule) 300 mg G-TUBE BEDTIME CLAUDIA Last Admin: 06/26/25 21:04 Dose: 300 mg Gabapentin (Gabapentin 100 Mg Capsule) 100 mg G-TUBE DAILY [facility] Last Admin: 06/26/25 10:14 Dose: 100 mg Guaifenesin (Guaifenesin 200 Mg/10 Ml 10 Ml Liquid) 10 ml G-TUBE Q4H PRN PRN Reason: Cough Last Admin: 06/26/25 23:55 Dose: 10 ml Haloperidol (Haloperidol 1 Mg Tablet) 2 mg G-TUBE BID PRN PRN Reason: agitation Haloperidol (Haloperidol 1 Mg Tablet) 1 mg G-TUBE DAILY [facility] Last Admin: 06/26/25 10:13 Dose: 1 mg Haloperidol (Haloperidol 1 Mg Tablet) 3 mg G-TUBE BEDTIME CLAUDIA Last Admin: 06/26/25 21:04 Dose: 3 mg Lactulose (Lactulose 20 Gm/30 Ml Solution) 20 gm G-TUBE BID [facility] Last Admin: 06/26/25 21:03 Dose: 20 gm Lidocaine (Lidocaine 4 % Patch Adh..Patch) 1 patch TRANSDERMA DAILY [facility]; Protocol Last Admin: 06/26/25 10:12 Dose: 1 patch Magnesium Hydroxide (Milk Of Magnesia 30 Ml Oral.Susp) 30 ml PO DAILY PRN PRN Reason: Constipation Multivitamins/Minerals (Multivitamin With Minerals Liq 15 Ml Liquid) 15 ml G-TUBE DAILY [facility] Last Admin: 06/26/25 15:18 Dose: 15 ml Polyethylene Glycol (Polyethylene Glycol 3350 17 Gm Powd.Pack) 17 gm G-TUBE BID [facility] Last Admin: 06/26/25 20:58 Dose: 17 gm Simethicone (Simethicone 80 Mg Tab.Chew) 80 mg PO Q6H PRN PRN Reason: Dyspepsia Tamsulosin HCl (Tamsulosin Hcl 0.4 Mg Capsule) 0.4 mg PO BEDTIME [facility] Last Admin: 06/26/25 21:06 Dose: Not Given Trazodone HCl (Trazodone Hcl 50 Mg Tablet) 150 mg G-TUBE BEDTIME [facility] Last Admin: 06/26/25 21:03 Dose: 150 mg Valproic Acid (Valproic Acid Liquid 250 Mg/5 Ml Solution) 500 mg G-TUBE BID [facility] Last Admin: 06/26/25 21:03 Dose: 500 mg Allergies Allergies Allergy/AdvReac Type Severity Reaction Status Date / Time No Known Allergies Allergy Verified 06/25/25 21:33 Assessment & Plan Assessment & Plan (1) Dysphagia: Status: Acute Code(s): R13.10 - Dysphagia, unspecified (2) Schizophrenia: Status: Acute Code(s): F20.9 - Schizophrenia, unspecified Assessment and Plan: 06/27/2025: No changes. Maintain clozapine. Speech and language following for further testing and complete evaluation after the weekend and in the meantime maintain NPO and TPN. Reason for continued inpatient stay Substantial Risk for: harm to self and inability to function Time Spent With Patient Time: Total time managing care of this patient today ____ minutes.
[2025-06-27 07:54] LABS: Creatinine Clr Calc Pharmacy 78.0; Estimated Glomerular Filt Rate > 60
[2025-06-27 08:00] VITALS: BP 139/79; PULSE 103; RESP 18; TEMP 2.6; TEMP 36.7; O2SAT 95
[2025-06-27] MEDS: Valproic Acid Liquid 250 MG/5 ML SOLUTION 500 MG G-TUBE ×2 (08:41→20:59)
[2025-06-27] MEDS: Multivitamin with Minerals Liq 15 ML LIQUID G-TUBE (08:44)
[2025-06-27] MEDS: Lidocaine 4 % Patch ADH..PATCH 1 PATCH TRANSDERMA (08:52)
--- NOTE | 2025-06-27 11:33 | MHC.SLORD ---
Speech Language Pathology Order Status: 06/27/25: DEVULCANIZER LOADER here online marketing coordinator in for other patient, contacted by THOMAS Martines re: status of swallow eval order for patient. Nursing unit has received MBSS/DEVULCANIZER LOADER notes from [facility] DEVULCANIZER LOADER department has also received large packet of medical documentation from [facility] Both indicated patient has documented aspiration, is at high risk for aspiration on any consistency, and primary nutrition through existing GTube only. With regard to comfort feeding, notes indicate that provider must accept risk for aspiration in providing comfort feeding, and measures should be taken to reduce risk, (with oral care given as an example of reducing risk ). DEVULCANIZER LOADER recommends deferring any further action/evaluation to 06/29/25(Sunday), keep patient NPO with no supplemental feeding or comfort measures (e.g. NO ICE CHIPS, ICE CREAM, as rn notes indicate have been given).
[2025-06-27 20:00] VITALS: BP 138/88; PULSE 95; RESP 16; TEMP 36.4; O2SAT 98
[2025-06-28 01:05] LABS: Glucose, Whole Blood 116 mg/dL (60-115)
--- NOTE | 2025-06-28 01:20 | PM.PSYDC ---
DS: Providers Provider Date of Service: 06/28/25 Date of admission: 06/25/25 21:29 Date of discharge: 06/28/25 Primary care physician: Kilo Valera Admitting clinician: Marialuisa Serrano Consults: 06/25/25 22:27 Consult to Hospitalist Routine Comment: Consulting Provider: [facility] Hospitalists Reason For Exam: transfer pt Attending physician on discharge: Barrett Chase DS: Diagnosis Discharge Diagnosis (1) Dysphagia: Status: Acute (2) Schizophrenia: Status: Acute DS: Medications Discharge Medications Home Medications: Home Medications ?Medication ?Instructions ?Recorded ?Confirmed acetaminophen 500 mg tablet 1,000 mg feeding tube TID 06/25/25 06/25/25 atorvastatin 20 mg tablet 20 mg feeding tube DAILY 06/25/25 06/25/25 bisacodyl 10 mg rectal suppository 10 mg KS DAILY PRN Constipation 06/25/25 06/25/25 calcium carbonate 1,000 mg feeding tube TID PRN 06/25/25 06/25/25 Heartburn clozapine 100 mg tablet 200 mg feeding tube BEDTIME 06/25/25 06/25/25 clozapine 25 mg tablet 25 mg feeding tube QAM 06/25/25 06/25/25 diclofenac sodium 1 % topical gel 2 g topical QID PRN Pain 06/25/25 06/25/25 enoxaparin 40 mg/0.4 mL 40 mg subcut DAILY 06/25/25 06/25/25 subcutaneous syringe famotidine 20 mg tablet 20 mg feeding tube BID 06/25/25 06/25/25 gabapentin 100 mg capsule 100 mg feeding tube QAM 06/25/25 06/25/25 gabapentin 100 mg capsule 300 mg feeding tube BEDTIME 06/25/25 06/25/25 guaifenesin 100 mg/5 mL oral liquid 200 mg feeding tube Q4H PRN Cough 06/25/25 06/25/25 haloperidol 1 mg tablet 1 mg feeding tube QAM 06/25/25 06/25/25 haloperidol 1 mg tablet 3 mg feeding tube BEDTIME 06/25/25 06/25/25 haloperidol 2 mg tablet 2 mg feeding tube BID PRN Agitation 06/25/25 06/25/25 ipratropium 0.5 mg-albuterol 3 mg 3 ml inhalation Q4H PRN Shortness 06/25/25 06/25/25 (2.5 mg base)/3 mL nebulization Of Breath soln lactulose 10 gram/15 mL oral 20 g KS BID 06/25/25 06/25/25 solution lidocaine 4 % topical patch 1 patch topical DAILY 06/25/25 06/25/25 multivitamin with minerals 15 ml feeding tube DAILY 06/25/25 06/25/25 polyethylene glycol 3350 17 gram 17 g feeding tube BID 06/25/25 06/25/25 oral powder packet (Miralax) ramelteon 8 mg tablet 8 mg PO BEDTIME 06/25/25 06/25/25 simethicone 80 mg chewable tablet 80 mg PO Q6H PRN Dyspepsia 06/25/25 06/25/25 tamsulosin 0.4 mg capsule 0.4 mg PO BEDTIME 06/25/25 06/25/25 trazodone 150 mg tablet 150 mg feeding tube BEDTIME 06/25/25 06/25/25 valproic acid (as sodium salt) 250 500 mg feeding tube BID 06/25/25 06/25/25 mg/5 mL oral solution Previous Rx's ?Medication ?Instructions ?Recorded ipratropium 0.5 mg-albuterol 3 mg 3 ml inhalation RQ4H WHILE AWAKE 06/28/25 (2.5 mg base)/3 mL nebulization PRN sob #0 mL soln Mental Status Exam Mental Status Exam Narrative: Lethargic; Transferred to medical floor Data Data Completed and Pending Completed studies during hospitalization [Text1]: 06/26/25 06/26/25 06/27/25 07:13 15:45 07:25 WBC 5.7 RBC 3.86 L Hgb 12.0 L Hct 35.2 L MCV 91.2 MCH 31.1 MCHC 34.1 RDW 15.9 Plt Count 196 MPV 9.2 L Immature Gran % (Auto) 3.0 H Neut % (Auto) 67.7 Lymph % (Auto) 18.1 L [place] % (Auto) 11.0 Eos % (Auto) 0.0 Baso % (Auto) 0.2 Lymph # (Auto) 1.0 L [place] # (Auto) 0.6 Eos # (Auto) 0.0 Baso # (Auto) 0.0 Abs Immat Gran (auto) 0.17 H Absolute Neuts (auto) 3.8 4.7 Absolute Nucleated RBC 0.000 Nucleated RBC % (auto) 0.0 Sodium 145 Potassium 4.6 Chloride 109 H Carbon Dioxide 29 Anion Gap 12 BUN 26 H Creatinine 0.87 1.01 0.93 Estim Creat Clear Calc 83.4 71.8 78.0 Estimated GFR > 60 > 60 > 60 POC Glucose Random Glucose 89 Estimat Average Glucose 114 Hemoglobin A1c % 5.6 Calcium 8.7 9.3 D Magnesium 2.1 2.2 Total Bilirubin 0.3 AST 25 ALT 23 Alkaline Phosphatase 120 H Troponin I High Sens 12.8 B-Natriuretic Peptide 78 Total Protein 6.2 L Albumin 3.1 L Triglycerides 231 H Cholesterol 221 H LDL Cholesterol, Calc 134 H HDL Cholesterol 41 Vitamin B12 629 Folate 12.3 TSH 0.95 Free T4 0.90 06/28/25 00:53 WBC RBC Hgb Hct MCV MCH MCHC RDW Plt Count MPV Immature Gran % (Auto) Neut % (Auto) Lymph % (Auto) [place] % (Auto) Eos % (Auto) Baso % (Auto) Lymph # (Auto) [place] # (Auto) Eos # (Auto) Baso # (Auto) Abs Immat Gran (auto) Absolute Neuts (auto) Absolute Nucleated RBC Nucleated RBC % (auto) Sodium Potassium Chloride Carbon Dioxide Anion Gap BUN Creatinine Estim Creat Clear Calc Estimated GFR POC Glucose 116 H Random Glucose Estimat Average Glucose Hemoglobin A1c % Calcium Magnesium Total Bilirubin AST ALT Alkaline Phosphatase Troponin I High Sens B-Natriuretic Peptide Total Protein Albumin Triglycerides Cholesterol LDL Cholesterol, Calc HDL Cholesterol Vitamin B12 Folate TSH Free T4 DS: Summary Hospital Course Hospital Course: HPI: Mr. Raymundo is a 70 year-old male with hx of schizophrenia stable for several years on clozaril who initially was admitted to [facility] in 03/2025 presented as lethargic and mute. He had covid/aspiration pneumonia. He had episodes of unresponsiveness negative for stroke/[place]/seizure. He was seen by psychiatry. Hospital course Met with patient. Discussed with Nursing. Speech and language review documentation and stated strict NPO until thorough speech evaluation and testing. On TPN. Overall reports mood is okay. Is some grandiosity, but this may also be patient's sense of humor for example mention something about writing a piece that is better than Kassi but also smiles at same. Denies paranoia or hallucinations. Sleep okay. No med concerns. - 06/27/2025: No changes. Maintain clozapine. Speech and language following for further testing and complete evaluation after the weekend and in the meantime maintain NPO and TPN. Medical floor transfer: Early in the morning on 06/28 patient became lethargic; hospitalist called and patient transferred to medical floor Time Spent with Patient Time attestation: Total time managing care of this patient today ____ minutes. Discharge Plan Discharge Anticipated Discharge Date/Time: 06/28/25 01:13 Patient Disposition: Xfer Other Discharge Diagnosis: schizophrenia Referrals: Kilo Valera [Other] - 1 Week Discharge Medications: New ipratropium-albuterol 0.5 mg-3 mg(2.5 mg base)/3 mL Solution For Nebulization 3 ml inhalation RQ4H WHILE AWAKE PRN (Reason: sob) Qty: 0 0RF Continued atorvastatin 20 mg tablet 20 mg feeding tube DAILY clozapine 100 mg tablet 200 mg feeding tube BEDTIME clozapine 25 mg tablet 25 mg feeding tube QAM haloperidol 1 mg Tablet 1 mg feeding tube QAM haloperidol 1 mg Tablet 3 mg feeding tube BEDTIME famotidine 20 mg tablet 20 mg feeding tube BID gabapentin 100 mg capsule 300 mg feeding tube BEDTIME gabapentin 100 mg capsule 100 mg feeding tube QAM tamsulosin 0.4 mg capsule 0.4 mg PO BEDTIME trazodone 150 mg tablet 150 mg feeding tube BEDTIME valproic acid (as sodium salt) 250 mg/5 mL Solution 500 mg feeding tube BID ramelteon 8 mg Tablet 8 mg PO BEDTIME polyethylene glycol 3350 [Miralax] 17 gram Powder In Packet 17 g feeding tube BID lactulose 10 gram/15 mL Solution 20 g KS BID haloperidol 2 mg Tablet 2 mg feeding tube BID PRN (Reason: Agitation) multivitamin with minerals Liquid 15 ml feeding tube DAILY lidocaine 4 % Adhesive Patch,Medicated 1 patch TOPICAL DAILY enoxaparin 40 mg/0.4 mL Syringe 40 mg SUBCUT DAILY acetaminophen 500 mg Tablet 1,000 mg feeding tube TID simethicone 80 mg Tablet,Chewable 80 mg PO Q6H PRN (Reason: Dyspepsia) ipratropium-albuterol 0.5 mg-3 mg(2.5 mg base)/3 mL Solution For Nebulization 3 ml INHALATION Q4H PRN (Reason: Shortness Of Breath) bisacodyl 10 mg Suppository 10 mg KS DAILY PRN (Reason: Constipation) guaifenesin 100 mg/5 mL Liquid 200 mg feeding tube Q4H PRN (Reason: Cough) diclofenac sodium 1 % Gel 2 g TOPICAL QID PRN (Reason: Pain) Rx Instructions: apply to single elbow, wrist or hand; for hand includes palm/fingers/back of hand calcium carbonate 500 mg calcium (1,250 mg) Tablet,Chewable 1,000 mg feeding tube TID PRN (Reason: Heartburn) Discharge Orders: Discharge Order (Routine); Ordered 06/28/25 Ordered By: Barrett Chase Diet: per medical team Activity on Discharge: As tolerated Stand Alone Forms: Patient Portal Discharge page Print Language: Icelandic Care Plan Goals: transferred to medical floor Health Concerns: transferred to medical floor Plan of Treatment: transferred to medical floor Assessment: transferred to medical floor Discharge Date/Time: 06/28/25 01:58
--- NOTE | 2025-06-28 01:30 | PC.NURSE ---
Carter was observed by staff to be unresponsive @ 0045, assessed patient and noted eyes rolled back, manually lifted eye lids, no response to verbal stimuli, sternal rub performed which resulted in response, BP 135/87; P 87; T 97.6; POX 98% AA; POC 116. Observed with periods of apnea, and upper airway congestion. Hospitalist notified for assessment, stat labs ordered and rec. transfer to [facility], Dr Chase on-call prescriber updated, orders obtained to discharge.
[2025-06-28 01:46] LABS: MANUAL DIFF FLAG NO
[2025-06-28 01:47] LABS: Hematocrit 33.4 % (42.0-52.0); Hemoglobin 11.5 g/dl (14.0-18.0); Imm Gran Abs Auto 0.07 X10*3/uL (0.00-0.03); Imm Gran Pct Auto 1.3 % (0.0-0.4); Lymphocytes Absolute Auto 1.2 X10*3/uL (1.2-4.9); Mean Corpuscular HGB Conc 34.4 g/dl (31.0-36.0); Mean Corpuscular Hemoglobin 31.0 pg (27.0-33.0); Mean Corpuscular Volume 90.0 fL (80.0-98.0); NRBC Abs Auto 0.000 X10*3/uL (0.0-0.012); NRBC Pct Auto 0.0 /100WBC (0.0-0.2); Platelet Count 184 X10*3/uL (160-400); Red Blood Count 3.71 X10*6/uL (4.60-5.80); White Blood Count 5.5 X10*3/uL (4.8-10.8)
[2025-06-28 01:50] LABS: Venous Blood Gas Refer to POC result
[2025-06-28 01:51] LABS: VBG HCO3 33 mmol/L (22-26); VBG O2 % Saturation 98.0 %
[2025-06-28 02:00] LABS: Ammonia 51 umol/L (13-55)
[2025-06-28 02:07] LABS: Alanine Aminotransferase 21 U/L (0-40); Albumin Level 3.0 g/dL (3.5-5.0); Alkaline Phosphatase 111 U/L (39-117); Anion Gap 14 (12-20); Aspartate Amino Transferase 16 U/L (5-37); Blood Urea Nitrogen 24 mg/dL (9-16); Calcium 8.8 mg/dL (8.4-10.2); Carbon Dioxide 26 mmol/L (22-29); Chloride 108 mmol/L (96-108); Creatinine Clr Calc Pharmacy 88.5; Estimated Glomerular Filt Rate > 60; Magnesium 2.2 mg/dL (1.6-2.6); Potassium 4.1 mmol/L (3.3-5.1); Sodium 144 mmol/L (135-145); Total Protein 5.8 g/dL (6.5-8.0)
== END 2025-06-28 01:58 | disposition other institution (70) | DRG 885 ==
PROVIDERS: Clinical Nurse Specialist Psychiatric/Mental Health, Adult; Internal Medicine; Nurse Practitioner Family; Admitting Provider Psychiatry & Neurology Psychiatry; Visit Provider Psychiatry & Neurology Psychiatry
DX: F20.9 Schizophrenia, unspecified (principal); R13.10 Dysphagia, unspecified; I25.10 Atherosclerotic heart disease of native coronary artery without angina pectoris; K59.00 Constipation, unspecified; N40.0 Benign prostatic hyperplasia without lower urinary tract symptoms; I12.9 Hypertensive chronic kidney disease with stage 1 through stage 4 chronic kidney disease, or unspecified chronic kidney disease; N18.9 Chronic kidney disease, unspecified; Z79.899 Other long term (current) drug therapy
CPT/HCPCS: 36415; 71045; 80053; 80061; 82140; 82310; 82565; 82607; 82746; 82803; 82947; 83036; 83605; 83735; 83880; 84100; 84439; 84443; 84484; 85025; 85048; 93005; J1650

== ENCOUNTER 2025-06-25 21:29 | Outpatient (BNV) | payer MEDICARE, SELFPAY | END 2025-06-26 13:48 | PROVIDERS: Admitting Provider Psychiatry & Neurology Psychiatry; Visit Provider Internal Medicine Cardiovascular Disease | DX: R00.0 Tachycardia, unspecified (principal); I51.7 Cardiomegaly | CPT/HCPCS: 93010 ==

== ENCOUNTER → 2025-06-25 21:29 | Outpatient (BNV) | payer MEDICARE, SELFPAY | PROVIDERS: Admitting Provider Psychiatry & Neurology Psychiatry; Visit Provider Psychiatry & Neurology Psychiatry | DX: F20.9 Schizophrenia, unspecified (principal) | CPT/HCPCS: 90792 ==

== ENCOUNTER → 2025-06-25 21:29 | Outpatient (BNV) | payer MEDICARE, SELFPAY | PROVIDERS: Admitting Provider Psychiatry & Neurology Psychiatry; Visit Provider Nurse Practitioner Family | DX: R13.10 Dysphagia, unspecified (principal) | CPT/HCPCS: 99222; 99499 ==

== ENCOUNTER 2025-06-28 01:52 | Inpatient (IN) | payer MEDICARE, SELFPAY ==
--- OUTSIDE RECORDS SUMMARY | 2025-04-15 18:17 | XMS_ITS | Encounter Summary ---
Author Organization [facility] Newman jacques Address [address] [place] [id number] Care Team Providers Care Spray Rig Operator Name Role Phone Kilo Huynh Jr. Primary Care Provid er Reason for Referral * (Routine) - Pending Review Specialty Diagnoses / Procedures Referred By Contac t Referred To Contact Procedures Reason for not prescribing emergency opioid antagonists on discharge Mariano Crbatree MD [address] [place] [id number] Phone: tel: fax: Referral ID Status Reason Start Date Expiration Date V isits Requested Visits Authorized [id number] Pending Review 06/25/2025 09/18/2026 1 1 * (Routine) - Pending Review Specialty Diagnoses / Procedures Referred By Contac t Referred To Contact Procedures Diets for dysphagia (difficulty in swallowing): Mariano Crabtree MD [address] [place] [address] Phone: tel: fax: Referral ID Status Reason Start Date Expiration Date V isits Requested Visits Authorized [id number] Pending Review 06/25/2025 09/18/2026 1 1 * Invasive Imaging (Routine) - New Request Specialty Diagnoses / Procedures Referred By Contac t Referred To Contact Radiology Diagnoses Aspiration pneumonitis (HCC) Procedures IR Follow-Up Appointment Mohinder Johnson MD [address] [place] [address] Phone: tel: fax: Referral ID Status Reason Start Date Expiration Date V isits Requested Visits Authorized [id number] New Request 08/12/2025 11/05/2026 1 1 * Invasive Imaging (Routine) - New Request Specialty Diagnoses / Procedures Referred By Ammy hansen Referred To Contact Radiology Diagnoses Aspiration into airway, sequela Procedures IR Follow-Up Appointment Mohinder Johnson MD [address] [place] [address] Phone: tel: fax: Referral ID Status Reason Start Date Expiration Date V isits Requested Visits Authorized [id number] New Request 05/12/2025 08/05/2026 1 1 Reason for Visit * Reason Comments Altered Mental Status * Auth/Cert (Routine) Specialty Diagnoses / Procedures Referred By Ammy hansen Referred To Contact Diagnoses Observation and evaluation for suspected conditions not found Procedures [facility] IP/OBS CARE HIGH MDM 75 MINUTES Referral ID Status Reason Start Date Expiration Date Visits Re quested Visits Authorized [id number] 1 1 Encounter Details Date Type Department Care Team (Latest Contact Info) Description 04/15/2025 6:17 PM EDT - 06/25/2025 7:33 PM EDT Hospital Encounter [facility] [address] [place] [address] Dane Caldwell MD [address] [place] [phone] Enzo Bonner MD [address] [place] [phone] Lela Martinez MD [address] [place] [phone] Rachelle Randall MD [address] [place] [address] Carter Cerda MD [address] /[address] [address] Chuy Hernandez MD [address] [place] [address] Bonifacio Agudelo MD [address] [place] [phone] Jono Aviles MD [address] [place] [phone] Mildred Srinivasan MD [address] [place] [phone] Mohinder Johnson MD [address] [place] [phone] Noe Carranza MD [address] [place] [phone] Imelda Xie MD [address] [place] [phone] Rabia Velasco MD [address] [place] [address] [phone] Urban Mondragon MD [address] [place] [phone] Quan Coates MD [address] [place] [phone] Mariano Maloney MD [address] [place], [place] Feliciano Choi MD [address] [place] Govind Olivo MD [address] [facility] W/Span 2 [place], [place] Param Abdi MD [address] [facility] W/SPAN-2 [place], [place] Mariano Crabtree MD [address] [place], [place] Altered mental status, unspecified altered mental status type (Primary Dx); Tachycardia; Unclassified epileptic seizures (HCC); Chest pain, unspecified type; Schizoaffective disorder, depressive type (HCC); Aspiration into airway, sequela; Aspiration pneumonitis (HCC); halfway current use of therapeutic drug; Abnormal electrocardiography Discharge Disposition: Psychiatric Hospital Social History Tobacco Use Types Packs/Day Years Used Date Smoking Tobacco: Former Cigarettes Q uit: 09/30/1985 Smokeless Tobacco: Never Alcohol Use Standard Drinks/Week Comments No 0 (1 standard drink = 0.6 oz pur e alcohol) Humiliation, Afraid, Rape, and Kick questionnair e Answer Date Recorded Within the last year, have y ou been afraid of your partner or ex-partner? No 04/16/2025 Emotionally Abused Not on file 04/16/2025 Physically Abused Not on file 04/16/2025 Sexually Abused Not on file 04/16/2025 Overall Financial Resource Strain (CARDIA) Answe r Date Recorded How hard is it for you to pa y for the very basics like food, housing, medical care, and heating? Not very hard 04/16/2025 Hunger Vital Sign Answer Date Recorded Within the past 12 months, y ou worried that your food would run out before you got the money to buy more. Never true 04/16/20 25 Ran Out of Food in the Last Year Not on file 04/16/2025 PRAPARE - Transportation Answer Date Re corded In the past 12 months, has l ack of transportation kept you from medical appointments or from getting medications? No 03/23 In the past 12 months, has l ack of transportation kept you from meetings, work, or from getting things needed for daily living? No 04/17/2025 Housing Stability Vital Sign Answer Ronak e Recorded In the last 12 months, was t here a time when you were not able to pay the mortgage or rent on time? No 04/17/2025 Number of Times Moved in the Last Year Not on fi le 04/17/2025 Homeless in the Last Year Not on file 2024 [facility] Utilities Answer Date Recorded In the past 12 months has th e electric, gas, oil, or water company threatened to shut off services in your home? No 04/16/2025 Food Insecurity Answer Date Recorded Within the past 12 months, y ou worried that your food would run out before you got the money to buy more. Never true 04/16/20 25 Ran Out of Food in the Last Year Not on file 04/16/2025 Intimate Partner Violence Answer Date R ecorded Emotionally Abused Not on file 04/16/2025 Within the last year, have y ou been afraid of your partner or ex-partner? No 04/16/2025 Physically Abused Not on file 04/16/2025 Sexually Abused Not on file 04/16/2025 Housing Stability Answer Date Recorded Unstable Housing in the Last Year Not on file 04/17/2025 In the last 12 months, was t here a time when you were not able to pay the mortgage or rent on time? No 04/17/2025 [address] Lived in the Last Year Not on f ile 04/17/2025 AUDIT C Answer Date Recorded How often have you had a dri nk containing alcohol, in the past year? 0 04/16/2025 How many standard drinks con taining alcohol have you had on a typical day when you are drinking, in the past year? -1 0 04/16/2025 How often have you had six o r more drinks on one occasion, in the past year? 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 file Not on file Not on file documented as of this encounter Last Filed Vital Signs Vital Sign Reading Time Taken Comments Blood Pressure 129/87 06/25/2025 3:15 PM EDT Pulse 110 06/25/2025 3:15 PM EDT Temperature 36.4 C (97.5 F) 06/25/2025 3:15 PM EDT Respiratory Rate 18 06/25/2025 3:15 PM EDT Oxygen Saturation 97% 06/25/2025 3:15 PM EDT Inhaled Oxygen Concentration - - Weight 75.8 kg (167 lb 1.7 oz) 04/17/2025 1:00 P M EDT Height 180.3 cm (5' 11 ) 04/16/2025 6:36 PM EDT Body Mass Index 23.31 04/16/2025 6:36 PM EDT documented in this encounter Functional Status * Are you deaf or do you have serious difficulty hearing? Answer Date of Assessment Author Yes 04/16/2025 6:37 PM EDT Joselin Richmond RN * Are you blind or do you have serious difficulty seeing, even when wearing glasses? Answer Date of Assessment Author No 04/16/2025 6:37 PM EDT Joselin Richmond RN * Do you have serious difficulty walking or climbing stairs? Answer Date of Assessment Author Yes 04/16/2025 6:37 PM EDT Joselin Richmond RN * Do you have difficulty dressing or bathing? Answer Date of Assessment Author Yes 04/16/2025 6:37 PM EDT Joselin Richmond RN documented as of this encounter Mental Status * Because of a physical, mental, or emotional condition, do you have serious difficulty concentrating, remembering, or making decisions? Answer Entry Date Author No 04/16/2025 6:37 PM EDT Joselin Richmond RN documented in this encounter Discharge Summaries * Anabel Melchor MD - 06/25/2025 6:04 PM EDT Images from the original note were not included. Date Of Admission: 04/15/2025 Inpatient Status Admit Date: 04/16/25 Date Of Discharge: 06/25/25 Primary Care Physician: Kilo Huynh Code Status: Full Code Advanced Care Planning: Contacts on File Name HCP Status Relationship HCP Last Review Date Delvin Raymundo Follow-up Appointments: Follow up Visits IR Follow-Up Appointment Reason for exam/ Additional clinical information: G tube exchange Laterality: N/A Are you in a Radiology Department?: Yes Clinical Problem (Indication for Consult/Procedure): G tube exchange Procedure requested: G tube routine exchange Reason for Requested Procedure: G tube exchange Anatomic Location?: Abdomen Antibiotics?: No PCP For immediate questions regarding your hospitalization, your medications, and any pending test results please contact your PCP: Kilo Huynh at [phone]. IR Follow-Up Appointment Needs routine exchange in 6 months (October 12 2025) Reason for exam/ Additional clinical information: G tube exchange Laterality: N/A Are you in a Radiology Department?: Yes Clinical Problem (Indication for Consult/Procedure): G tube exchange Procedure requested: G tube routine exchange Reason for Requested Procedure: G tube exchange Anatomic Location?: Abdomen Antibiotics?: No Pending Tests on Discharge: Transitional Issues For Psychiatry [] Please continue to monitor Qtc with at least weekly ECGs [] Please continue aggressive bowel regimen as he has constipation with clozapine. Discharge psychiatric regimen: -clozapine to 25mg qAM + 225mg qHS -haloperidol 1mg qAM + 3mg qHS -trazodone 150mg qHS -depakote 500mg BID For PCP [ ] Consider ASA for his history of CAD in outpatient setting [ ] Consider sleep study in outpatient setting for his transient episodes of hypoxemia [ ] Was intermittently hypertensive to 140-150 inpatient, not on anti- hypertensives prior to admission. Consider starting BP medication. [] Re-evaluation with SOLAR DESIGN ENGINEER once he has had increased improvement in his overall functionality. Brief Hospital Course Carter Raymundo is a 69 y.o. male with a relevant past medical history of HTN, CKD, schizoaffectivedisorder, and drug-induced parkinsonism, who presented with unresponsiveness, asphaia, and possibleleft facial droop. CT and MRI head ruled out stroke, and TME workup was negative. He had a few transient episodes of hypoxia without fever, leukocytosis, and any localizing signs and symptoms pointing towards potential aspiration pneumonitis. Additionally, he had several episodes of unresponsiveness that were not consistent with catatonia per Psychiatry, which resolved. He was admitted to medicine for monitoring as clozapine dose was adjusted, TME exonerated, and then for placement. Course was complicated by COVID and pneumonia with an O2 requirement, which improved with remdesivir and HAP coverage. Marked improvement in mental status 06/08, which fluctuated with periods of agitation, suicidal ideation, and paranoid. Sustained improvement week of 06/15, with decrease in paranoia and suicidal ideation, and improvements in physical ability with PT with the ability to ambulate from bed to chair, but was still decondiiton. Throughout the rest of his course, he has continued to have suicidalideation and paranoia at times and has been engaging in exam. Ultimately, he was medically stable and accepted at [facility] for continued psychiatric care and support. Carter and his brother Delvin were in agreement of transfer. Problem Based Hospital Course # Schizoaffective disorder # Transient unresponsiveness, resolved # Acute delirium, resolved # Suicidal ideation, improving/resolved # Acute psychosis, improving Patient initially presented with acute onset of unresponsiveness, aphasia, and concern for facial asymmetry. CTH w/o stroke. MRIb normal. Workup for toxic metabolic encephalopathy negative. Multiple EEGs with no evidence of seizures. During admission, has had multiple triggers called for unresponsiveness (not true catatonia per psych) with no clear trigger. Labs from triggers thus far have all been unremarkable. His ongoing presentation is likely secondary to acute delirium superimposed on known decompensated schizoaffective disorder that is persistent even with careful titration of his psychiatric medications. Titrated his psychiatric medications carefully with the help of Psychiatry. Meets Section 12 criteria. Week of 06/08 marked improvement in his alertness, insight, ability to communicate with the team, memory and self awareness and was able to work with PT and SOLAR DESIGN ENGINEER. However, at the same time he also began endorsing SI. On 06/12 evaluated by psychiatry and determined presentation consistent with acute psychosis in the setting of schizoaffective disorder, delirium and/or underlyingneurocognitive disorder (not previously diagnosed per records). Interdisciplinary rounds 06/12 with discussion of rehab vs psychiatric facility. Main barriers either direction will be physical strength/ ability to be somewhat independent (for a psych facility) vs his active psychosis and SI. He was a ccepted to [facility] on 06/25. # Oropharyngeal Dysphagia with G-Tube Dependence # Transient hypoxia # C/f aspiration pneumonitis Patient with episode of hypoxia in ED, quickly resolved without intervention.Patient with history of oropharyngeal dysphagia with G tube in place. High risk for aspiration and given transient nature suspect this was the driving etiology of hypoxia. Pulled G-tube ??2 (replaced 05/12). Variable PO tole ryanne; aspiration risk high. High risk of complication with aspiration/pneumonia and would recommend that he remain NPO given potential medical setback in psych placement. However, patient 06/08 with improvements in mental status, could re- consider SOLAR DESIGN ENGINEER and video swallow. Discussion with HCP that he hopes Carter will be eventually able to transition from the G tube back to PO after swallow therapy. SOLAR DESIGN ENGINEER conversation 06/11 with barium swallow - still aspirating but improvement from prior. Per SOLAR DESIGN ENGINEER onreview of his long history of dysphagia and swallow studies, he will likely always be at risk for aspiration and unlikely to meet nutritional needs on a full PO diet. Reasonable for PO for pleasure, with the understanding he will always be at risk for aspirating but we can minimize risk with oral hygiene, PT and proper precautions. Discussed with HCP who is in favor of PO for pleasure as well as patient who verbalized understanding that he is still at risk for aspiration and that we know he is aspirating. Discussed with HCP that it is likely he will need to have the G tube indefinitely to meet his nutritional needs - which will warrant further discussion in the future as it may not align with the patients GOC, QOL. He was able to tolerate pureed foods and liquids for comfort. #COVID +, resolved #LLL Consolidation, resolved RVP sent 05/24 for increased tachycardia and transient hypoxemia with O2 requirement. He was found simone COVID positive. Also had CXR with new LLL consolidation (prior XR 2 days prior). He was started on remdesivir given he had medication interactions with Paxlovid and HAP coverage with full recovery. #Constipation with intermittent diarrhea Was maintained on aggressive bowel regimen while on clozpine. Received standing miralax, senna, lactulose, daily mag citrate. #Leg pain/weakness # History of L4-L5 laminectomy Concern overnight 06/18 for leg pain with patient c/f stroke vs DVT. Overnight exam reassuring. In the am, patient continued to feel something was off with his left leg, but described more as pain/ tingling with exam revealing skin hypersensitivity without overt signs concerning for a DVT. Differential included stroke given the weakness in the L leg compared to right with leg lift, however, given overall reassuring neurological exam and more concern for pain with sensitive skin exam unlikely a neurologic etiology. He also has chronic lower back pain and did have some pain with passive lifting of leg down the leg, c/f sciatica. Not noted on PT session 06/18 or to have any new lower leg deficits. # Sinus Tachycardia Pt consistently tachycardic in 90s - low 100s during this hospitalization. EKG's to date all consistent with sinus tachycardia, suspect medication related. # Drug-induced Parkinsonism Discontinued home sinemet tapered and discontinued (05/28) for increased risk of psychosis # CAD # HTN Continued home statin # CKD Trended Cr, was at baseline. # BPH Continued home tamsulosin # GERD Continued home pepcid Tinea corporis/pedis, improving Topical ketoconazole cream to feet/calf with improvement Summary of Pertinent Data: LABS: Results from last 7 days Lab Units 06/22/25 0037 WBC K/uL 6.62 HEMOGLOBIN g/dL 11.3* HEMATOCRIT % 34.7* PLATELETS K/uL 185 Results from last 7 days Lab Units 06/22/25 0526 SODIUM mmol/L 142 POTASSIUM mmol/L 4.2 CHLORIDE mmol/L 103 CO2 mmol/L 28 BUN mg/dL 27* CREATININE mg/dL 0.80 CALCIUM mg/dL 9.0 GLUCOSE mg/dL 141* IMAGING: ECG 12 lead Result Date: 06/25/2025 Sinus tachycardia left ventricular hypertrophy Abnormal ECG When compared with ECG of 18-Jun-2025 11:53, No significant change was found ECG 12 lead Result Date: 06/18/2025 Sinus tachycardia Moderate voltage criteria for LVH, may be normal variant Borderline ECG When compared with ECG of 15-Jun-2025 12:55, No significant change was found Abdomen 1 VW Result Date: 06/16/2025 INDICATION: abd pain and bloating. TECHNIQUE: Supine abdominal radiographs were obtained. COMPARISON: Abdominal x-ray from 29 May 2025. FINDINGS: Prominent loops of air-filled small bowel with borderline dilated loops of transverse colon measuring up to 7.5 cm. There is moderate stool impaction in the ascending colon. Supine assessment limits detection for free air; there is no gross pneumoperitoneum. Osseous structures are unremarkable. Surgical clips in the left upper quadrant. Patient is status post lower lumbar spine fusion. External G-tube projecting over stomach. 1. No definite radiographic evidence of bowel obstruction. 2. Moderate stool impaction in the ascending colon. BY ELECTRONICALLY SIGNING THIS REPORT, I THE ATTENDING PHYSICIAN ATTEST THAT I HAVE REVIEWED THE IMAGES FOR THE ABOVE PROCEDURE(S) AND AGREE WITH THE FINDINGS DOCUMENTED. Jose Ramirez MD, electronically signed on Jun 16 2025 04:33PM ECG 12 lead Result Date: 06/15/2025 Normal sinus rhythm Left axis deviation Prolonged QT interval Abnormal ECG When compared with ECG of 11-Jun-2025 11:22, No significant change was found 12 lead Result Date: 06/11/2025 Normal sinus rhythm Left axis deviation Minimal voltage criteria for LVH, may be normal variant Prolonged QT interval When compared with ECG of 04-Jun-2025 05:14, No significant change was found Modified Barium Swallow Incl Speech Result Date: 06/11/2025 EXAMINATION: FL MODIFIED BARIUM SWALLOW INCL SPEECH INDICATION: 70 with hx dysphagia/ aspiration/ pneumonia, PEG tube, eval for clearance of liquids/ice cream/ applesauce. TECHNIQUE: Oropharyngeal swallowing videofluoroscopy was [facility]. Multiple consistencies of barium were administered. DOSE: Fluoro time: 3 min 3 seconds. Skin dose 27 mGy DAP 43.1 uGy m2 COMPARISON: None available. FINDINGS: There was penetration with mildly thick liquids and silent aspiration with thin liquids. Pharyngeal residue is noted. Penetration with mildly thick liquids and silent aspiration with thin liquids.. Please note that a detailed description of dynamic swallowing as well as a summative assessment and recommendations arereported separately in a standalone note by the Speech-Language Pathologist ([facility], Notes, Speech Pathology). BY ELECTRONICALLY SIGNING THIS REPORT, I THE ATTENDING PHYSICIAN ATTEST THAT I HAVE REVIEWED THE IMAGES FOR THE ABOVE PROCEDURE(S) AND AGREE WITH THE FINDINGS DOCUMENTED. Jose Quintana MD, electronically signed on Jun 11 2025 05:13PM ECG 12 lead Result Date: 06/04/2025 Sinus tachycardia Left axis deviation Moderate voltage criteria for LVH, may be normal variant Whencompared with ECG of 31-May-2025 10:34, No significant change was found 12 lead Result Date: 06/01/2025 Normal sinus rhythm sinus arrhythmia Normal ECG When compared with ECG of 29-May-2025 11:00, Criteria for Septal infarct are no longer present 12 lead Result Date: 05/31/2025 Normal sinus rhythm Poor R wave progression Prolonged QT interval Abnormal ECG When compared with ECG of 27-May-2025 21:25, no significant change Abdomen Portable Result Date: 05/30/2025 INDICATION: bowel gas and stool eval; TECHNIQUE: Portable supine abdominal radiograph was obtained.COMPARISON: XR Abdomen dated 28 May 2025. FINDINGS: There are no abnormally dilated loops of large or small bowel. Nonobstructive bowel gas pattern. Supine assessment limits detection for free air;there is no gross pneumoperitoneum. Osseous structures are unremarkable. Status post lower lumbar spine fusion. There are no unexplained soft tissue calcifications or radiopaque foreign bodies. No significant stool burden. Normal gas distribution throughout large and small bowel loops. BY ELECTRONICALLY SIGNING THIS REPORT, I THE ATTENDING PHYSICIAN ATTEST THAT I HAVE REVIEWED THE IMAGES FOR THE ABOVE PROCEDURE(S) AND AGREE WITH THE FINDINGS DOCUMENTED. Miguelito Thibodeaux MD, electronically signed on May 30 2025 04:26PM ECG 12 lead Result Date: 05/28/2025 Sinus tachycardia Left axis deviation Borderline ECG When compared with ECG of 25 May 2025 no significant change Abdomen Portable Result Date: 05/28/2025 INDICATION: assess stool burden; TECHNIQUE: Portable supine abdominal radiograph was obtained. COMPARISON: XR Abdomen dated 12 May 2025. FINDINGS: Large bowel dilation, measuring up to 7.7 cm diameter. No significant stool volume. Contrast from prior CT in the bladder. Supine assessment limits detection for free air; there is no gross pneumoperitoneum. G-tube marker noted. Osseous structures are unremarkable. Status post lower lumbar spine fusion. There are no unexplained soft tissue calcifications or radiopaque foreign bodies. No significant stool burden. BY ELECTRONICALLY SIGNING THIS REPORT, I THE ATTENDING PHYSICIAN ATTEST THAT I HAVE REVIEWED THE IMAGES FOR THE ABOVE PROCEDURE(S) AND AGREE WITH THE FINDINGS DOCUMENTED. Miguelito Serrano MD, electronically signed on May 28 2025 07:42PM CT Angiogram Chest PE : Arteriogram Result Date: 05/28/2025 EXAMINATION: CTA CHEST PE INDICATION: new O2 demand; TECHNIQUE: Contiguous axial images were obtained through the chest following administration of intravenous contrast. Coronal, sagittal and MIP reformats were performed. DOSE: Acquisition sequence: 1) Spiral Acquisition 1.1 s, 46.2 cm; CTDIvol = 6.2 mGy (Body) DLP = 285.9 mGy-cm 2) Stationary Acquisition 0.4 s, 0.5 cm; CTDIvol = 1.7 mGy (Body) DLP = 0.9 mGy-cm 3) Stationary Acquisition 1.7 s, 0.5 cm; CTDIvol = 10.3 mGy (Body) DLP = 5.2 mGy-cm Total DLP (Body) = 301 mGy-cm COMPARISON: No prior studies for comparison. FINDINGS: NECK, THORACIC INLET, AXILLAE, CHEST WALL: The thyroid is unremarkable. There is no supraclavicular or axillary lymp hadenopathy by CT size criteria. Mild bilateral symmetric gynecomastia. MEDIASTINUM: Scattered prominent mediastinal lymph nodes measuring up to 8.4 mm in right paratracheal region (301:72). No mediastinal mass is seen. The esophagus is patulous, which can be seen in the setting of dysmotility. IRVIN: Mildly enlarged/prominent right hilar lymphnodes measuring upto 12mm and left hilar lymphnodes measuring tp to 8mm . . HEART/PERICARDIUM: The heart is within normal limits in size. Moderate calcification of left anterior descending, rest are mild. No pericardial effusion is seen. PLEURA: There isno evidence of pleural effusion or pneumothorax. LUNGS: 1. PARENCHYMA: Bilateral multifocal areas of peribronchial heterogeneous consolidative opacities most pronounced in the left upper lobe and lower lobe dense consolidations with air bronchograms. 2. AIRWAYS: Multifocal areas of mucous plugging in the lower lobes. 3. VESSELS: Conventional 3-vessel aortic arch is noted. The thoracic aorta and pulmonary arteries are normal in caliber. The pulmonary vasculature is well-opacified to the subsegmental level, with no evidence of filling defects suggestive of pulmonary emboli. BONES: Mild degenerative osteophytes in multilevel thoracic vertebrae. No findings in the chest cage to suggest infection, malignancy or recent trauma. 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 UPPER ABDOMEN: The visualized portion of the upper abdomen is unremarkable. LINES AND TUBES: Gastrostomy tube in place. 1. No evidence of pulmonary embolism or acute aortic abnormality. 2. Near complete mucous plugging of bilateral lower lobe bronchi. Bilateral multifocal areas of peribronchial heterogeneous consolidative opacities most pronounced in the left upper lobe and dense consolidation in the lower lobes with air bronchogram, consistent with multifocal aspiration and/ or pneumonia 3. Mildly enlarged right hilar and scattered prominent left hilar and mediastinal lymph nodes, likely reactive. BY ELECTRONICALLY SIGNING THIS REPORT, I THE ATTENDING PHYSICIAN ATTEST THAT I HAVE REVIEWED THE IMAGES FOR THE ABOVE PROCEDURE(S) AND AGREE WITH THE FINDINGS DOCUMENTED. James Champion MD, all ctronically signed on May 28 2025 01:10PM CT Head Without Contrast Result Date: 2025 EXAMINATION: CT HEAD WO CONTRAST INDICATION: new altered mental status; TECHNIQUE: Contiguous axialimages from skullbase to vertex were obtained without intravenous contrast. Coronal and sagittal reformations and bone algorithms reconstructions were also performed DOSE: Acquisition sequence: 1) Sequenced Acquisition 5.0 s, 20.0 cm; CTDIvol = 47.7 mGy (Head) DLP = 954.0 mGy-cm Total DLP (Body) = 3 mGy-cm Total DLP (Head) = 954 mGy-cm COMPARISON: CT head dated 22 April 2025. FINDINGS: There is no evidence of acute large vascular territory infarction, intra-axial or extra-axial hemorrhage, edema,or mass effect. The basal cisterns are patent. The ventricles and sulci are prominent consistent wit h involutional changes. No acute fracture. Mild mucosal thickening of the ethmoid air cells. The remaining paranasal sinuses, mastoid air cells, and middle ear cavities are well aerated. The orbits are unremarkable. No acute intracranial abnormality. BY ELECTRONICALLY SIGNING THIS REPORT, I THE ATTENDING PHYSICIANATTEST THAT I HAVE REVIEWED THE IMAGES FOR THE ABOVE PROCEDURE(S) AND AGREE WITH THE FINDINGS DOCUMENTED. MD Cassi Correa MD, electronically signed on 2025 10:34PM XR Chest 1 VW Portable Result Date: 2025 EXAMINATION: XR CHEST 1 VW PORTABLE INDICATION: worsening hypoxemia and aspiration; TECHNIQUE: AP radiographs of the chest COMPARISON: Radiographs the chest from May 22 and 05/24 FINDINGS: Left lowerlobe retrocardiac consolidation appears worsened and is now silhouetting the descending aorta compared to radiographs from 3 days. This is highly concerning for LLL pneumonia. The lungs are otherwiseclear without evidence effusion or pneumothorax. The cardiomediastinal silhouette is normal and similar to radiographs from 3 days prior. Worsening left lower lobe opacification highly concerning for pneumonia. BY ELECTRONICALLY SIGNING THIS REPORT, I THE ATTENDING PHYSICIAN ATTEST THAT I HAVE REVIEWED THE IMAGES FOR THE ABOVE PROCEDURE(S) AND AGREE WITH THE FINDINGS DOCUMENTED. Gigi Doe MD, electronically signed on 2025 03:19PM MICROBIOLOGY: Results for orders placed or performed during the hospital encounter of 04/15/25 Culture, Blood Collection Time: 05/24/25 6:58 PM Specimen: Peripheral; Blood Result Value Ref Range Culture No growth after 5 days Nasal MRSA/SA By PCR Collection Time: 05/27/25 3:35 PM Specimen: Nares; Swab Result Value Ref Range MRSA PCR Negative Negative S. aureus PCR Negative Negative Culture, Respiratory (Incl Gram) Collection Time: 05/27/25 5:55 PM Specimen: Sputum, Induced; Respiratory Result Value Ref Range Respiratory Culture Heavy growth commensal respiratory nuvia Smear,Gram Stain >25 PMNs and <10 epithelial cells/100X field Smear,Gram Stain 4+ Multiple Organisms Present Consistent with Oropharyngeal [place] Coronavirus SARS-CoV-2 Date Value Ref Range Status 05/24/2025 Positive (A) Negative Final Discharge Exam: BP 129/87 (BP Location: Left arm, Patient Position: Sitting) Pulse (!) 110 Temp 97.5 ??F (36.4 ??C) (Oral) Resp 18 Ht 1.803 m (5' 11 ) Wt 75.8 kg (167 lb 1.7 oz) SpO2 97% BMI 23.31 kg/m?? GENERAL: NAD, lying in bed comfortably. HEENT: No scleral icterus, MMM. CARDIAC: RRR, no m/r/g; extremities WWP, no LE edema. LUNG: Appears in no respiratory distress. No accessory muscle use. CTAB, no crackles, wheezes, or rhonchi. ABD: +BS. Abdomen soft, NTND. No rebound or guarding. MSK: No focal joint swelling or deformities. NEURO: Alert, oriented. EOMI. Face symmetric, speech normal. Moving all extremities against gravity. L hand w/ coarse tremor, pill-rolling motion. SKIN: No significant rashes, sores or wounds noted on exposed skin. PSYCH: Non-agitated. No pressured speech. Evidence of grandiose thinking/possible delusions. Circumferential thought process at times Allergies:Morphine Home Medications: Prescriptions Prior to Admission[1] Discharge Medications: I have reviewed the discharge medication list and they are accurate and up to date for the time of discharge Yes Medication List PAUSE taking these medications buPROPion 100 MG tablet Wait to take this until your doctor or other care provider tells you to start again. Commonly known as: WELLBUTRIN START taking these medications acetaminophen 500 MG tablet Commonly known as: TYLENOL 2 tablets (1,000 mg total) by G-tube route 3 times a day. bisacodyl 10 mg suppository Commonly known as: DULCOLAX Insert 1 suppository (10 mg total) into the rectum daily as needed for constipation. calcium carbonate 200 mg calcium (500 mg) chewable tablet Commonly known as: TUMS 2 tablets (1,000 mg total) by G-tube route 3 times a day as needed for heartburn. diclofenac sodium 1 % Gel Commonly known as: VOLTAREN Apply 2 g topically 4 times a day as needed (pain). guaiFENesin 100 mg/5 mL syrup Commonly known as: ROBITUSSIN Take 10 mL (200 mg total) by mouth every 4 hours as needed for cough. * haloperidoL 1 MG tablet Commonly known as: HALDOL 1 tablet (1 mg total) by G-tube route daily AND 3 tablets (3 mg total) at bedtime. * haloperidoL 2 MG tablet Commonly known as: HALDOL Take 1 tablet (2 mg total) by mouth 2 times a day as needed (For mild/moderate agitation.). ketoconazole 2 % cream Commonly known as: NIZORAL Apply topically 2 times a day. lactulose 10 gram/15 mL solution Commonly known as: ENULOSE 30 mL (20 g total) by G-tube route 2 times a day. polyethylene glycol 17 gram packet Commonly known as: MIRALAX Take 1 packet (17 g total) by mouth 2 times a day. ramelteon 8 mg tablet Commonly known as: ROZEREM Take 1 tablet (8 mg total) by mouth at bedtime. G-tube simethicone 80 MG chewable tablet Commonly known as: MYLICON 1 tablet (80 mg total) by G-tube route every 6 hours as needed for flatulence. sodium chloride 0.65 % nasal spray Commonly known as: OCEAN 2 sprays into each nostril every 2 hours as needed for congestion. valproate 250 mg/5 mL Soln Commonly known as: DEPAKENE 10 mL (500 mg total) by G-tube route 2 times a day. * This list has 2 medication(s) that are the same as other medications prescribed for you. Read thedirections carefully, and ask your doctor or other care provider to review them with you. CHANGE how you take these medications * cloZAPine 25 MG tablet Commonly known as: CLOZARIL 9 tablets (225 mg total) by G-tube route at bedtime. What changed: medication strength how much to take additional instructions * cloZAPine 25 MG tablet Commonly known as: CLOZARIL 1 tablet (25 mg total) by G-tube route daily. Start taking on: June 26, 2025 What changed: how much to take when to take this additional instructions * gabapentin 300 MG capsule Commonly known as: NEURONTIN What changed: Another medication with the same name was added. Make sure you understand how and when to take each. Another medication with the same name was changed. Make sure you understand how and when to take each. * gabapentin 300 MG capsule Commonly known as: NEURONTIN 1 capsule (300 mg total) by G-tube route at bedtime. What changed: You were already taking a medication with the same name, and this prescription was added. Make sure you understand how and when to take each. * gabapentin 100 MG capsule Commonly known as: NEURONTIN 1 capsule (100 mg total) by G-tube route every morning. Start taking on: June 26, 2025 What changed: when to take this * This list has 5 medication(s) that are the same as other medications prescribed for you. Read thedirections carefully, and ask your doctor or other care provider to review them with you. CONTINUE taking these medications atorvaSTATin 20 MG tablet Commonly known as: LIPITOR TAKE 1 TABLET (20 MG TOTAL) BY MOUTH DAILY. famotidine 20 MG tablet Commonly known as: PEPCID lidocaine 5 % patch Commonly known as: LIDODERM sennosides 8.8 mg/5 mL oral syrup tamsulosin 0.4 mg Cap 24 hr capsule Commonly known as: FLOMAX traZODone 150 MG tablet Commonly known as: DESYREL STOP taking these medications carbidopa-levodopa 25-100 mg per tablet Commonly known as: SINEMET docusate sodium 50 mg/5 mL liquid Commonly known as: COLACE fludrocortisone 0.1 mg tablet Commonly known as: FLORINEF FLUORIDEX DAILY DEFENSE 1.1 % Pste Generic drug: fluoride (sodium) fluticasone propionate 50 mcg/actuation nasal spray Commonly known as: FLONASE hydrOXYzine HCL 25 MG tablet Commonly known as: ATARAX potassium, sodium phosphates 280-160-250 mg Pwpk Commonly known as: PHOS-NAK traMADoL 25 mg Tab Where to Get Your Medications Information about where to get these medications is not yet available Ask your nurse or doctor about these medications acetaminophen 500 MG tablet bisacodyl 10 mg suppository calcium carbonate 200 mg calcium (500 mg) chewable tablet cloZAPine 25 MG tablet cloZAPine 25 MG tablet diclofenac sodium 1 % Gel gabapentin 100 MG capsule gabapentin 300 MG capsule guaiFENesin 100 mg/5 mL syrup haloperidoL 1 MG tablet haloperidoL 2 MG tablet ketoconazole 2 % cream lactulose 10 gram/15 mL solution polyethylene glycol 17 gram packet ramelteon 8 mg tablet simethicone 80 MG chewable tablet sodium chloride 0.65 % nasal spray valproate 250 mg/5 mL Soln Discharge Orders: Activity Instructions Normal Activity as tolerated Diet Instructions Tube Feed Jevity 1.5 Cyclic: 6 pm / 10 am Goal rate: 85 ml / hr Free water flushes: 250 ml every 4 hours Diets for dysphagia (difficulty in swallowing): Eat pureed foods. Examples include applesauce, yogurt and mashed potatoes. You can drink your usual liquids. DISCHARGE DISPOSITION: Inpatient Psychiatry Discharge plan was discussed with patient and surrogate decision maker who verbalized understanding. Educational materials were provided. Anabel Melchor MD Internal Medicine PGY-2 Pager: [phone] [1] Medications Prior to Admission Medication Sig atorvaSTATin (LIPITOR) 20 MG tablet TAKE 1 TABLET (20 MG TOTAL) BY MOUTH DAILY. (Patient taking differently: Take 1 tablet (20 mg total) by mouth daily.) [Paused] buPROPion (WELLBUTRIN) 100 MG tablet Take 1 tablet (100 mg total) by mouth 3 times a day. carbidopa-levodopa (SINEMET) 25-100 mg per tablet 2 tablets by G-tube route 3 times a day. cloZAPine (CLOZARIL) 100 MG tablet 1 tablet (100 mg total) by G-tube route at bedtime. Take with 75mg for total dose of 175 mg at bedtime cloZAPine (CLOZARIL) 25 MG tablet 3 tablets (75 mg total) by G-tube route at bedtime. Take with 100mg for total dose of 175 mg at bedtime docusate sodium (COLACE) 50 mg/5 mL liquid 10 mL (100 mg total) by G-tube route every morning &every evening. famotidine (PEPCID) 20 MG tablet 1 tablet (20 mg total) by G-tube route every morning & every evening. fludrocortisone (FLORINEF) 0.1 mg tablet Take 1 tablet (0.1 mg total) by mouth daily. fluoride, sodium, (FLUORIDEX DAILY DEFENSE) 1.1 % Pste Apply 1 Application to teeth at bedtime. fluticasone propionate (FLONASE) 50 mcg/actuation nasal spray 1 spray by Each Nare route daily. gabapentin (NEURONTIN) 100 MG capsule 1 capsule (100 mg total) by G-tube route every morning & every evening. gabapentin (NEURONTIN) 300 MG capsule 1 capsule (300 mg total) by G-tube route at bedtime. hydrOXYzine HCL (ATARAX) 25 MG tablet 1 tablet (25 mg total) by G-tube route 4 times a day. lidocaine (LIDODERM) 5 % patch Place 1 patch on the skin daily. Remove & Discard patch within 12 hours or as directed by potassium, sodium phosphates (PHOS-NAK) 280-160-250 mg PwPk Take 1 packet by mouth 3 times a day before meals. sennosides 8.8 mg/5 mL oral syrup 10 mL (17.6 mg total) by G-tube route every morning & every evening. tamsulosin (FLOMAX) 0.4 mg cap 24 hr capsule 1 capsule (0.4 mg total) by G-tube route at bedtime. traMADoL 25 mg Tab 3 tablets (75 mg total) by G-tube route 4 times a day. traZODone (DESYREL) 150 MG tablet 1 tablet (150 mg total) by G-tube route at bedtime. Cosigned by Mariano Crabtree MD at 06/25/2025 8:58 PM EDT Associated attestation - Mariano Crabtree MD - 06/25/2025 8:58 PM EDT I have seen and examined the patient, and reviewed available laboratory, imaging and report data inEPIC. I have reviewed the pertinent findings, note and plan of care as documented by Anabel Melchor MD and agree. Would highlight the following: Carter Raymundo is a 70 yo with schizoaffective disorder, drug induced parkinsonism, CKD, and G-tube placement, admitted for psychosis c/b COVID and aspiration pneumonia, who is now medically stable and will be discharged to [facility] geriatric psychiatry unit. is clinically stable for discharge. The total time spent on discharge planning, counseling, and coordination of care was greater than 30 minutes. Remainder of plan per resident note. Mariano Crabtree M.D. Chief Petrography Teacher. [facility] Clinical Fellow. Department of Infectious Diseases documented in this encounter Discharge Instructions * Discharge Instructions* Edwin Conner MD - 04/15/2025 11:40 PM EDT You are seen in the emergency department for altered mental status. Your workup was reassuring. Your evaluated urology and they recommended . You were evaluated by psychiatry and they recommended . At this time you will be follow-up as outpatient. Please follow-up with PCP in the next 2 days or sooner as needed. Please return to the emergency department for any new or worsening altered mental status, fevers, chills, nausea, vomiting * Discharge Instr - Pt Ed Handouts* Karrie Starks MD - 05/24/2025 1:57 PM EDT Dear Carter, It was a pleasure taking part in your care here at [facility]! Why was I admitted to the hospital? You were admitted for unresponsiveness. What was done for me while I was in the hospital? We did an extensive workup to see what was causing your unresponsiveness. We did head imaging to rule out a stroke, which was normal. We did an EEG to monitor for seizures, which was normal. Your labwork was all normal. You were seen by the Psychiatrists, who felt that your unresponsiveness was due to your schizoaffective disorder and not being on the correct dose and combination of psychiatric medications. They helped us carefully adjust the dosing of your psychiatric medications while you were admitted. What should I do when I leave the hospital? - Please take all of your medications as prescribed. A detailed description of your medications is included in the discharge paperwork, but be sure to make note of the following changes: - Please attend all of your follow-up appointments as scheduled. Return precautions: You should call 911 or return to the emergency department if you experience: Sincerely, Your [facility] Care Team documented in this encounter Medications at Time of Discharge atorvaSTATin (LIPITOR) 20 MG tablet TAKE 1 TABLET (20 MG TOTAL) BY MOUTH DAILY. 90 tablet 3 09/18/2017 buPROPion (WELLBUTRIN) 100 MG tablet Take 1 tablet (100 mg total) by mouth 3 times a day. famotidine (PEPCID) 20 MG tablet 1 tablet (20 mg total) by G-tube route every morning & every evening. gabapentin (NEURONTIN) 300 MG capsule 1 capsule (300 mg total) by G-tube route at bedtime. lidocaine (LIDODERM) 5 % patch Place 1 patch on the skin daily. Remove & Discard patch within 12 hours or as directed by MD umaña 8.8 mg/5 mL oral syrup 10 mL (17.6 mg total) by G-tube route every morning & every evening. tamsulosin (FLOMAX) 0.4 mg cap 24 hr capsule 1 capsule (0.4 mg total) by G-tube route at bedtime. traZODone (DESYREL) 150 MG tablet 1 tablet (150 mg total) by G-tube route at bedtime. acetaminophen (TYLENOL) 500 MG tablet 2 tablets (1,000 mg total) by G-tube route 3 times a day. 06/25/2025 bisacodyl (DULCOLAX) 10 mg suppository Insert 1 suppository (10 mg total) into the rectum daily as needed for constipation. 06/25/2025 calcium carbonate (TUMS) 200 mg calcium (500 mg) chewable tablet 2 tablets (1,000 mg total) by G-tube route 3 times a day as needed for heartburn. 06/25/2025 cloZAPine (CLOZARIL) 25 MG tablet 9 tablets (225 mg total) by G-tube route at bedtime. 06/25/2025 cloZAPine (CLOZARIL) 25 MG tablet 1 tablet (25 mg total) by G-tube route daily. 06/26/2025 diclofenac sodium (VOLTAREN) 1 % Gel Apply 2 g topically 4 times a day as needed (pain). 06/25/2025 gabapentin (NEURONTIN) 100 MG capsule 1 capsule (100 mg total) by G-tube route every morning. 06/26/2025 gabapentin (NEURONTIN) 300 MG capsule 1 capsule (300 mg total) by G-tube route at bedtime. 06/25/2025 guaiFENesin (ROBITUSSIN) 100 mg/5 mL syrup Take 10 mL (200 mg total) by mouth every 4 hours as needed for cough. 06/25/2025 haloperidoL (HALDOL) 1 MG tablet 1 tablet (1 mg total) by G-tube route daily AND 3 tablets (3 mg total) at bedtime. 06/25/2025 haloperidoL (HALDOL) 2 MG tablet Take 1 tablet (2 mg total) by mouth 2 times a day as needed (For mild/moderate agitation.). 06/25/2025 ketoconazole (NIZORAL) 2 % cream Apply topically 2 times a day. 06/25/2025 lactulose (ENULOSE) 10 gram/15 mL solution 30 mL (20 g total) by G-tube route 2 times a day. 06/25/2025 polyethylene glycol (MIRALAX) 17 gram packet Take 1 packet (17 g total) by mouth 2 times a day. 06/25/2025 ramelteon (ROZEREM) 8 mg tablet Take 1 tablet (8 mg total) by mouth at bedtime. G-tube 06/25/2025 simethicone (MYLICON) 80 MG chewable tablet 1 tablet (80 mg total) by G-tube route every 6 hours as needed for flatulence. 06/25/2025 sodium chloride (OCEAN) 0.65 % nasal spray 2 sprays into each nostril every 2 hours as needed for congestion. 06/25/2025 valproate (DEPAKENE) 250 mg/5 mL Soln 10 mL (500 mg total) by G-tube route 2 times a day. 06/25/2025 documented as of this encounter Progress Notes * Demetra Hawkins, PT - 06/25/2025 4:35 PM EDT PHYSICAL THERAPY PROGRESS NOTE Rehabilitation Services - Inpatient Physical Therapy Level of Care: Floor Interdisciplinary Recommendations PT Discharge rec: (rehab) Movement Precautions: WB Status: Activity and Mobility Recommendations: [x]Patient is at high risk for deconditioning. Please maximize independence in ADLs and encourage frequent mobility including: Lift for all mobility including transfers to chair 3x/day []Patient is at risk for pressure injury. Please limit sitting time to one hour on standard air cushion given patient???s inability to effectively reposition in chair. [x]Patient is at risk for falls. Please use chair alarm when out of bed. [x]Patient is at risk for delirium. Please consider implementing strategies to reduce risk including: OOB to chair 3 day for all meals Familiar pictures and items within view News or nonverbal music on during daytime Lights on during day with shades UP Frequent Reorientation to clock, calendar, and window Encourage participation with ADLs Encourage family presence at bedside *For questions please check the patient???s care team for the most updated PT contact information [x]Updated medical status including labs, radiology, procedures and medications since previous visit reviewed Subjective: I'm feeling stronger everyday Patient-Stated Goal: none stated. Agreeable to PT session Objective: Hemodynamic Response/Aerobic Capacity VSS and monitored throughout session. Patient asymptomatic throughout session Relevant cardiac medications reviewed per EMR Functional Mobility Bed Mobility: Supine to Sit: Supervision Adaptive Equipment: HOB elevated, Side rails Sit to Supine: Supervision Transfers: Sit to Stand: Minimal assistance, Contact guard (patient completing x3-4 STS throughout session requiring various level of assistance CGA> Samm. able to maintain stand with 30s-1min.) Stand to Sit: Contact guard Bed to chair: (patient deferred 2/2 fatigue. session focused on blocked practice STS) Transfer aid: Walker Gait Belt Used For Transfers: Yes Gait: Ambulation Assistance: Activity does not occur (patient deferred further mobility 2/2 fatigue) Balance: Sitting - Static: Supervision Sitting - Dynamic: Supervision Standing - Static: Contact guard, With assistive device Standing - Dynamic: Activity does not occur Balance Interventions: Sitting reaching activities, Standing reaching activities, Bilateral stance,Weight shifting Pain: Patient denies throughout session Limiting Symptoms: Fatigue Other Tests and Measures: Cognition: Level of Consciousness: Alert Orientation Level: Oriented X4 Following Directions: Follows all directions without difficulty Success rate following directions: 100% of the time Patient Behaviors/Mood: Appropriate, Cooperative, Pleasant Memory: Intact Attention to Tasks: Attends to task, Attends to conversation Safety Awareness: Full awareness of safety precautions, Full awareness of deficits Insight: Impaired Problem Solving: Assistance required to identify errors made Intervention: Therapeutic activities Functional mobility training Balance training Endurance training Energy conservation Patient/Caregiver Education RE: [x]Role of PT [x]PT plan of care [x]Fall risk reduction [x]Discharge recommendations [x]Mobility Recommendations []Other: []Silver Solderer utilized for session Team Communication: Communicated with [x]RN [x] []OT [x]CM RE: Patient status []Patient discussed at interdisciplinary team rounds. Pt left supine with all needs in reach, bed alarm for safety Assessment Clinical Impression: Carter Raymundo is a 70 y.o. male with a history of schizoaffective disorder who presents to physical therapy during hospitalization for management of psychosis, with course c/b COVID and PNA. Pt is making steady progress as demonstrated by improved sit to stand tolerance as compared to previous visit. Pt continues to function below baseline limited by the primary impairment/activity limitation of endurance, dynamic balance and impaired strength which is likely due to deconditioning iso prolonged independence. Patient will benefit from rehab. Acute PT will continue to follow and progress per POC. Treatment Plan: Balance training, Bed mobility, Therapeutic Activities/Functional Training, Therapeutic Exercise, Transfer training, Gait training/stairs Patient agrees with the above goals and is willing to participate in the rehabilitation program: Yes Time: 3210-2838 Physical Therapist Name: DEMETRA HAWKINS PT Physical Therapist Pager: [phone] License #: [id number] * Demetra White RN - 06/25/2025 3:45 PM EDT Case Management - Progress Note Patient: Carter Raymundo : 1955 Attending: Mariano Crabtree MD Admit Date: 04/15/2025 Inpatient Status Admit Date: 04/16/25 Primary Care Physician: Kilo Huynh Discussed at [facility]. Section 12. 1:1. MANJIT: Pending IP [facility] Psych Bed: On bed search list. Dispo: Inpatient psych hospital/unit; spoke with [facility] psych admissions bed search team; [facility] is currently reviewing patient's clinicals. State that continued progression with PT/OT may create more bed offers. CM to continue to follow. Demetra White RN 06/25/2025 * Kymberly Mata MD - 06/25/2025 2:55 PM EDT [facility] PSYCHIATRIC CONSULTATION FOLLOW-UP CHIEF COMPLAINT: Psych f/u for mood and psychosis INTERVAL HPI: No acute concerns overnight. Pt is seen today in f/u individually. I then spoke with his brother who was visiting. On interview, Carter is sitting calmly in bedside chair and engaged in conversation. He states thathe is feeling better today and less paranoid overall. Sleep remains intact. Today he is denying suicidal thoughts. He states that mentioning this induces a fear that shakes my foundation. He discusses how he would like to invite a well-known poet to visit him at [facility] if he is placed there. He endorses a romantic interest and notes that they have been messaging online but never met. He shares that he is no longer interested in becoming famous. He endorses some chronic back pain, worse presently as he is more slouched on the chair. He has some anxiety about PT but continues to engag e regularly. He asks about having his g-tube removed and attributes dysphagia and aspiration risk in part to anxiety around swallowing. I spoke with his brother, Delvin Raymundo, separately. He reports that pt was pleasant during their visit, able to interact and demonstrate an interest in his brother. He is still showing some paranoia,noting that he needed to monitor or be careful about what he said. He is also demonstrating some grandiosity, though at baseline this is present to some degree. Pt has been reaching out proactively to friends. He is less irritable and more socially engaged. He confirms that pt has managed his psychiatric illness very well in the past and that he does have some relationship with the poet he described. He retained insight and would be able to identify when he was feeling more paranoid or symptomatic. We discussed options for treatment and disposition planning. He stopped the bed at [facility] due to prolonged inpatient admission. We reviewed ongoing psychiatric bed search pending physical rehabilitation for deconditioning. Noted that if psychiatric symptoms stable first, we could instead plan for dispo to rehab if needed. Ultimate goal is to return to assisted living. I discussed recommendation to increase clozapine to 25mg qAM + 225mg qHS to optimize mood, residualparanoia and intermittent SI. Both brother and pt are amenable to this plan. ROS: Normal sleep +Back pain EXAM: Temp: [97.7 ??F (36.5 ??C)-98.6 ??F (37 ??C)] 98.6 ??F (37 ??C) Heart Rate: [99-106] 99 Resp: [18] 18 BP: (125-144)/(79-91) 144/91 SpO2: [95 %-96 %] 96 % Neurological: Motor: moving all extremities spontaneously. Station and gait: gait exam deferred +LUE course tremor Cognitive: Wakefulness/alertness: awake and alert Orientation: intact to interview Attention: intact to interview Fund of knowledge: intact to interview Language: fluent in Thai Mental Status: Appearance: appropriately groomed, dressed in hospital attire Behavior: cooperative, normal eye contact, no PMR/PMA Mood: better Affect: euthymic, stable, congruent Speech: regular rate, volume, prosody Thought process: linear, circumferential at times, intact associations Thought content: denies SI, no overt paranoia or delusional content elicited Judgment and insight: fair/fair DATA: Lab Results Component Value Date GLUCOSE 141 (H) 06/22/2025 CALCIUM 9.0 06/22/2025 NA 142 06/22/2025 K 4.2 06/22/2025 CO2 28 06/22/2025 CL 103 06/22/2025 BUN 27 (H) 06/22/2025 CREATININE 0.80 06/22/2025 Lab Results Component Value Date ALB 3.1 (L) 06/22/2025 Lab Results Component Value Date WBC 6.62 06/22/2025 HGB 11.3 (L) 06/22/2025 HCT 34.7 (L) 06/22/2025 MCV 95 06/22/2025 PLT 185 06/22/2025 Last EKG ECG 12 lead Collection Time: 06/18/25 11:54 AM Result Value Ref Range Ventricular Heart Rate 101 BPM Atrial Heart Rate 101 BPM LA Interval 142 ms QRSD Interval 98 ms QT Interval 376 ms QTC Interval 487 ms P Mathews 43 degrees R Mathews -26 degrees T Wave Mathews 56 degrees Narrative Sinus tachycardia Moderate voltage criteria for LVH, may be normal variant Borderline ECG When compared with ECG of 25-Aug-2025 12:55, No significant change was found *Note: Due to a large number of results and/or encounters for the requested time period, some results have not been displayed. A complete set of results can be found in Results Review. 06/15/25 VPA 49 (500mg BID dose) Clz 224 (25mg / 200mg dose) MEDICATIONS: Current Medications[1] ASSESSMENT: Carter Raymundo is a 70 y.o. with PMHx pertinent for schizoaffective disorder on clozapine, hypertension, CKD, oropharyngeal dysphagia c/b frequent aspiration now s/p PEG, drug-induced Parkinsonism, who presented from nursing facility with altered mental status with unresponsiveness and aphasia, now medically stable for next level of care. Psychiatry initially consulted for assistance with diagnostic clarification, with initial differential ddx of catatonia vs delirium/encephalopathy vs decompensated psychosis. Hospital course c/b COVID PNA. Over time and with treatment, pt has presented as less overtly paranoid, more organized and engaged with staff. On interview today, he reports improvement in paranoia and feeling better overall. He denies SI andis future oriented. Continues to describe feeling fragile with heightened emotional sensitivity. He is adherent to medications and engaging in care. Sleep remains intact. He is future-oriented and making plans. I spoke with his brother, who has observed improvement in pt's irritability and ability to engage in conversations with others and empathize. He notes the pt is very social at baseline and has been reaching out to friends. He continues to report some paranoid thoughts to his brother and presenting with more grandiosity than at baseline. Pt is calm and linear overall on exam. No overtparanoia or delusional content elicited. Clinical impression c/w schizoaffective disorder. We discussed plan to increase clozapine by 25mg at bedtime to optimize treatment for mood, paranoia and intermittent suicidal ideation. Continue 1:1 observer due to recent SI and will continue section 12 withbed search ongoing for inpatient level of care. Will continue to assess symptoms with goal to de-escalate when able due to rehab needs. In the meantime, pt continues to engage regularly with PT. DSM-5 DIAGNOSIS: Schizoaffective disorder RECOMMENDATIONS: - Please continue 1:1 sitter - Patient meets section 12 criteria and cannot leave AMA; appreciate CM facilitating bed search forinpatient level of care -increase clozapine to 25mg qAM + 225mg qHS -continue haloperidol 1mg qAM + 3mg qHS -continue trazodone 150mg qHS -continue depakote 500mg BID -continue to monitor and treat pain as you are doing -continue bowel regimen -we will continue to follow with you [1] Current Facility-Administered Medications Medication Dose Route Frequency Provider Last Rate Last Admin acetaminophen (TYLENOL) tablet 1,000 mg 1,000 mg G-tube TID Ammon Low MD PhD 1,000 mg at 06/25/25 0941 atorvaSTATin (LIPITOR) tablet 20 mg 20 mg G-tube QHS Juliet Becerra MD 20 mg at 06/24/252107 bisacodyl (DULCOLAX) suppository 10 mg 10 mg Rectal Daily PRN Noe Ruiz MD 10 mg at 05/02/252042 [Held by provider] buPROPion (WELLBUTRIN) tablet 100 mg 100 mg G-tube TID Peña Salas MD 100 mg at 05/10/252031 calcium carbonate (TUMS) chewable tablet 1,000 mg 1,000 mg G-tube TID PRN Karrie Starks MD 1,000 mg at 06/21/25 1552 cloZAPine (CLOZARIL) tablet 225 mg 225 mg G-tube QHS Anabel Melchor MD cloZAPine (CLOZARIL) tablet 25 mg 25 mg G-tube Daily Ammon Low MD PhD 25 mg at 06/25/25 0941 dextrose (TRUEPLUS) 40% oral gel 15 g 15 g Oral Q15 Min PRN Ammon Low MD PhD Or dextrose 50% (D50W) injection 12.5 g 12.5 g Intravenous PRN Ammon Low MD PhD Or dextrose 50% (D50W) injection 25 g 25 g Intravenous PRN Ammon Low MD PhD Or glucagon injection 1 mg 1 mg Intramuscular PRN Ammon Low MD PhD diclofenac sodium (VOLTAREN) 1 % gel 2 g 2 g Topical 4 times daily PRN Mari Kaur MD 2 g at 06/23/252133 enoxaparin (LOVENOX) injection 40 mg 40 mg Subcutaneous Q24H [facility] Juliet Becerra MD 40 mg at famotidine (PEPCID) tablet 20 mg 20 mg G-tube BID Juliet Becerra MD 20 mg at 06/25/25940 gabapentin (NEURONTIN) capsule 100 mg 100 mg G-tube QAM Ptaricia Holden MD 100 mg at 06/25/25939 gabapentin (NEURONTIN) capsule 300 mg 300 mg G-tube QHS Anabel Melchor MD 300 mg at 06/24/252112 guaiFENesin (ROBITUSSIN) 100 mg/5 mL syrup 200 mg 200 mg Oral Q4H PRN Patricia Holden MD 200 mg at 06/23/25 040 haloperidoL (HALDOL) tablet 1 mg 1 mg G-tube Daily Mari Kaur MD 1 mg at 06/25/25939 And haloperidoL (HALDOL) tablet 3 mg 3 mg G-tube QHS Mari Kaur MD 3 mg at 06/24/252106 haloperidoL (HALDOL) tablet 2 mg 2 mg Oral BID PRN Patricia Holden MD 2 mg at 06/14/25 165 iohexoL (OMNIPAQUE) 240 mg iodine/mL solution 20 mL 20 mL Intravenous Once in imaging Karrie Starks MD ipratropium-albuteroL (DUONEB) 0.5-2.5 mg/3 mL nebulizer solution 3 mL 3 mL Nebulization Q4H PRN Patricia Holden MD ketoconazole (NIZORAL) 2 % cream Topical BID Mari Kaur MD Given at 06/25/25940 lactulose (ENULOSE) 10 gram/15 mL solution 20 g 20 g G-tube BID Anabel Melchor MD 20 g at 940 lidocaine 4 % patch 1 patch 1 patch Topical Q24H Karrie Starks MD 1 patch at 06/25/25 1154 lidocaine 4 % patch 1 patch 1 patch Topical Q24H Patricia Holden MD 1 patch at 06/25/25 115 multivitamin with minerals oral liquid 15 mL 15 mL G-tube Daily Karrie Starks MD 15 mL at 06/25/25 0940 peripheral line: sodium chloride (NS) 0.9% flush 3 mL Intravenous Q12H [facility] Peña Salas MD 3 mLat 06/02/252035 And peripheral line: sodium chloride 0.9 % (NS) flush 3 mL Intravenous Q1 Min PRN Peña Salas MD polyethylene glycol (MIRALAX) packet 17 g 17 g G-tube BID Anabel Melchor MD 17 g at 06/25/25 0941 ramelteon (ROZEREM) tablet 8 mg 8 mg G-tube QHS Karrie Starks MD 8 mg at 06/24/252105 sennosides oral syrup 17.6 mg 17.6 mg G-tube Daily Anabel Melchor MD 17.6 mg at 06/25/25 0940 simethicone (MYLICON) chewable tablet 80 mg 80 mg G-tube Q6H PRN Anabel Melchor MD 80 mg at 06/20/25 1011 sodium chloride (OCEAN) 0.65 % nasal spray 2 spray 2 spray Each Nare Q2H PRN Ammon Low MD PhD sodium chloride 3 % nebulizer solution 4 mL 4 mL Nebulization Q4H PRN Ammon Low MD PhD 4 mL at 05/28/25 1722 tamsulosin (FLOMAX) 24 hr capsule 0.4 mg 0.4 mg G-tube QHS Juliet Becerra MD 0.4 mg at 06/24/252106 traZODone (DESYREL) tablet 150 mg 150 mg G-tube Nightly Patricia Holden MD 150 mg at 06/24/252105 valproate (DEPAKENE) 250 mg/5 mL solution 500 mg 500 mg G-tube BID Rachelle Rand MD 500 mg at 06/25/25 0940 * Nyla Zaman MD - 06/25/2025 6:56 AM EDT [facility] Medicine Progress Note Patient: Carter Raymundo Admission Date: 04/15/2025 Length of Stay: 70 PCP: Kilo Huynh Attending: Mariano Crabtree MD Chief Complaint: AMS OVERNIGHT EVENTS - NAEO SUBJECTIVE Patient says he is feeling well this am. Reports he is hoping to walk by Sunday and has been doing exercises with PT and on his own in bed. Says he is working on his poetry and communicating with multiple friends online, including a woman he plans to , regarding his next work. He also continues to report wanting to remove G-tube again, though again discussed how we need to take it slow and don't want to remove anything too fast, and patient is agreeable, saying he knows sometimes his swallowing isn't so great. He says he is no longer feeling suicidal today. Denies SOB, coughing, or pain anywhere. No other acute concerns. OBJECTIVE DATA VITALS T 97.7 ??F (36.5 ??C) HR (!) 103 BP 125/79 RR 18 SpO2 96 % 3 L/min O2 Device: None (Room air) 75.8 kg (167 lb 1.7 oz) Body mass index is 23.31 kg/m??. PHYSICAL EXAM GENERAL: NAD, lying in bed comfortably. HEENT: No scleral icterus, MMM. CARDIAC: RRR, no m/r/g; extremities WWP, no LE edema. LUNG: Appears in no respiratory distress. No accessory muscle use. CTAB, no crackles, wheezes, or rhonchi. ABD: +BS. Abdomen soft, NTND. No rebound or guarding. MSK: No focal joint swelling or deformities. NEURO: Alert, oriented. EOMI. Face symmetric, speech normal. Moving all extremities against gravity. L hand w/ coarse tremor, pill-rolling motion. SKIN: No significant rashes, sores or wounds noted on exposed skin. PSYCH: Non-agitated. No pressured speech. Evidence of grandiose thinking/possible delusions. Circumferential thought process at times LABS, MICROBIOLOGY and STUDIES reviewed in Epic. ASSESSMENT & PLAN 70 y.o. male with PMHx schizoaffective disorder, drug-induced parkinsonism, CKD, and PEG dependenceadmitted with delirium on psychiatric decompensation, later COVID+ with aspiration pneumonia, now stable on RA, awaiting cheli-psych placement vs SNF. ACTIVE ISSUES # Transient unresponsiveness, resolved # Acute delirium, resolved # Schizoaffective disorder # Suicidal ideation # Acute psychosis Multiple transient unresponsiveness events; stroke and seizure workup negative (CTH, MRI brain, EEG). Likely acute delirium on background of decompensated schizoaffective disorder. Psychiatry managing clozapine titration and adjuncts; haloperidol for augmentation and agitation. Meets Section 12 criteria. Week of 06/08 marked improvement in his alertness, insight, ability to communicate with the team, memory and self awareness and was able to work with PT and SOLAR DESIGN ENGINEER. However, at the same time he also began endorsing SI. On 06/12 evaluated by psychiatry and determined presentation consistent with acute psychosis in the setting of schizoaffective disorder, delirium and/or underlying neurocognitive d isorder (not previously diagnosed per records). Interdisciplinary rounds 06/12 with discussion of rehab vs psychiatric facility. Main barriers either direction will be physical strength/ ability to besomewhat independent (for a psych facility) vs his active psychosis and SI which would be hard for a rehab to manage. Possible given improvement that he may qualify for a rehab facility instead of a psychiatric one. - Psych following - weekly interdisciplinary meetings - c/w clozapine 25 mg qAM + 200 mg qhs (increased) 06/13 - c/w valproate 250mg TID - Psych increased valproate to 500mg PO qAM+ 500mg PO qHS 06/11 - Standing haloperidol to 1mg qD + 3mg qHS - c/w trazodone 150 mg qhs - c/w ramelteon 8 mg qhs - HCP affirmed; cannot leave AMA - f/up VPA level and clozapine level - VA lvl 49 on 06/15 - Re-evaluate early next week for sustained mental status improvement and absence of SI, and could be candidate for rehab # Oropharyngeal Dysphagia with G-Tube Dependence Pulled G-tube ??2 (replaced 05/12). Variable PO tolerance; aspiration risk high. High risk of complication with aspiration/pneumonia and would recommend that he remain NPO given potential medical setback in psych placement. However, patient 06/08 with improvements in mental status, could re-consider SOLAR DESIGN ENGINEER and video swallow. Discussion with HCP that he hopes Carter will be eventually able to transition from the G tube back to PO after swallow therapy. SOLAR DESIGN ENGINEER conversation 06/11 with barium swallow - still aspirating but improvement from prior. Per SOLAR DESIGN ENGINEER on review of his long history of dysphagia and swallow studies, he will likely always be at risk for aspiration and unlikely to meet nutritional needs on a full PO diet. Reasonable for PO for pleasure, with the understanding he will always be at risk for aspirating but we can minimize risk with oral hygiene, PT and proper precautions. Discussed withHCP who is in favor of PO for pleasure as well as patient who verbalized understanding that he is still at risk for aspiration and that we know he is aspirating. Discussed with HCP that it is likely he will need to have the G tube indefinitely to meet his nutritional needs - which will warrant further discussion in the future as it may not align with the patients GOC, QOL. - FSBG been trending WNL and no longer needing ISS. Since no hx of DM we can switch to back to a standard tube feed formula. Jevity 1.5 @ 85mL/hr x 16 hrs. 06/15. - c/w overnight tube feeds; adjustments per nutrition - Will proceed with PO for pleasure with liquid/ice cream/ pudding etc 3x daily max with oral hygiene before and after - Noted by nursing to be coughing with thin liquids - guanfenasin PRN - re-engage SOLAR DESIGN ENGINEER today #Leg pain/weakness # History of L4-L5 laminectomy Concern overnight 06/18 for leg pain with patient c/f stroke vs DVT. Overnight exam reassuring. In the am, patient continued to feel something was off with his left leg, but described more as pain/ tingling with exam revealing skin hypersensitivity without overt signs concerning for a DVT. Differential included stroke given the weakness in the L leg compared to right with leg lift, however, given overall reassuring neurological exam and more concern for pain with sensitive skin exam unlikely a neurologic etiology. He also has chronic lower back pain and did have some pain with passive lifting of leg down the leg, c/f sciatica. Not noted on PT session 06/18 or to have any new lower leg deficits. - CTM - Defer imaging at this time, but if change in neurological examination will consider further workup - continue pain management # Constipation / Diarrhea Hx severe stool burden on clozapine requiring aggressive bowel regimen; now with diarrhea intermittently. Responds well to mag citrate if refractory to other attempts. KUB 06/17 read as moderate stoolimpaction in the ascending colon, however, Carter is having Bms that are soft/somewhat formed decreasing concern for full impaction. Will CTM. - adjust bowel reg pending stool output - large episode of incontinence 8/31 # Tinea corporis/pedis - topical ketoconazole cream to feet/calf. Appears to have mild improvement. - If not improvement consider oral treatment, however, caution iso his mildly prolonged EKG. CHRONIC/STABLE/RESOLVED ISSUES # AHRF (resolved): i/s/o COVID/HAP s/p Remdesivir and HAP abx # Drug-induced Parkinsonism: Sinemet tapered and discontinued (05/28) # CAD: c/h atorvastatin # CKD: at baseline Cr # BPH: c/h tamsulosin # GERD: c/h famotidine CORE MEASURES - Access: PIV(s) - DVT ppx: Lovenox (patient intermittently refusing) - Code Status: Full Code - Contact/HCP: brother Delvin Raymundo [phone] Patient Contacts Name Legal Rel Relationship Phone Active Delvin Raymundo Health Care Agent Brother Yes - Disposition: -- Anticipated discharge to: rehab vs psych facility -- Anticipated discharge date: 07/01 -- Anticipated discharge barriers: psych stabilization, working with PT Extended Emergency Contact Information Primary Emergency Contact: PepitosteveDelvin Mobile Relation: Brother Silver Solderer needed? No Nyla Zaman MD PGY-1 Dept of Medicine Cosigned by Mariano Crabtree MD at 06/25/2025 2:02 PM EDT Associated attestation - Mariano Crabtree MD - 06/25/2025 2:02 PM EDT I have seen and examined the patient, reviewed the findings and plan of care as documented by Nyla Zaman MD and agree, with additional comments below. Carter Raymundo is a 70 yo with schizoaffective disorder, drug induced parkinsonism, CKD, and G-tube placement, admitted for psychosis c/b COVID and aspiration pneumonia, who is now medically stable pending placement. I spent 43 minutes in total on this encounter today, including but not limited to review of data inelectronic medical record, [id number] evaluation, documentation, and coordination of care. Mariano Crabtree M.D. Chief Petrography Teacher. [facility] Clinical Fellow. Department of Infectious Diseases * Kymberly Mata MD - 06/24/2025 4:47 PM EDT [facility] PSYCHIATRIC CONSULTATION FOLLOW-UP CHIEF COMPLAINT: INTERVAL HPI: Pt seen today in f/u while awaiting inpatient level of care. Team reports that he continues to express some paranoia. His brother has observed some decline in mental status. On the floor, he has been alert and oriented x3, taking medications, cooperative with care. He is reporting intermittent suicidal thoughts and continues with 1:1 observation. Utilizing g-tube due to h/o aspiration. Slept well overnight. He continues to engage with physical therapy for deconditioning and impaired balance. On interview, pt reports he is experiencing intermittent paranoia with some insight. When asked to elaborate, he tells me he is having some thoughts of jumping out the window. He becomes easily tearful recalling his , then tangentially describes negative experiences she had in childhood. He is calmly sitting in the room listening to classical music, noting that he previously played the piano.He is able to tolerate a full interview. Reports normal sleep. Medications have been helpful with mood. He denies constipation. He is hopeful for hospitalization at [facility] for ongoing treatment. He is able to discuss some of his interests. ROS: Normal sleep Denies oversedation Denies constipation EXAM: Temp: [97.6 ??F (36.4 ??C)-98.3 ??F (36.8 ??C)] 98.3 ??F (36.8 ??C) Heart Rate: [94-106] 106 Resp: [16-20] 18 BP: (119-133)/(80-86) 130/86 SpO2: [95 %-98 %] 95 % Neurological: Motor: moving all extremities spontaneously. Station and gait: gait exam deferred +LUE course tremor Cognitive: Wakefulness/alertness: awake and alert Orientation: intact to interview Attention: intact to interview Fund of knowledge: intact to interview Language: fluent in Thai Mental Status: Appearance: appropriately groomed, dressed in hospital attire Behavior: cooperative, normal eye contact, no PMR/PMA Mood: paranoid Affect: labile Speech: regular rate, volume, prosody Thought process: linear, circumferential at times, intact associations Thought content: endorses intermittent SI to jump out window, no overt paranoia or delusional content elicited Judgment and insight: fair/fair DATA: Lab Results Component Value Date GLUCOSE 141 (H) 06/22/2025 CALCIUM 9.0 06/22/2025 NA 142 06/22/2025 K 4.2 06/22/2025 CO2 28 06/22/2025 CL 103 06/22/2025 BUN 27 (H) 06/22/2025 CREATININE 0.80 06/22/2025 Lab Results Component Value Date ALB 3.1 (L) 06/22/2025 Lab Results Component Value Date WBC 6.62 06/22/2025 HGB 11.3 (L) 06/22/2025 HCT 34.7 (L) 06/22/2025 MCV 95 06/22/2025 PLT 185 06/22/2025 Last EKG ECG 12 lead Collection Time: 06/18/25 11:54 AM Result Value Ref Range Ventricular Heart Rate 101 BPM Atrial Heart Rate 101 BPM LA Interval 142 ms QRSD Interval 98 ms QT Interval 376 ms QTC Interval 487 ms P Mathews 43 degrees R Mathews -26 degrees T Wave Mathews 56 degrees Narrative Sinus tachycardia Moderate voltage criteria for LVH, may be normal variant Borderline ECG When compared with ECG of 15-Jun-2025 12:55, No significant change was found *Note: Due to a large number of results and/or encounters for the requested time period, some results have not been displayed. A complete set of results can be found in Results Review. ASSESSMENT: Carter Raymundo is a 70 y.o. with PMHx pertinent for schizoaffective disorder on clozapine, hypertension, CKD, oropharyngeal dysphagia c/b frequent aspiration now s/p PEG, drug-induced Parkinsonism, who presented from nursing facility with altered mental status with unresponsiveness and aphasia, now medically stable for next level of care. Psychiatry initially consulted for assistance with diagnostic clarification, with initial differential ddx of catatonia vs delirium/encephalopathy vs decompensated psychosis. Hospital course c/b COVID PNA. Over time and with treatment, pt has presented as less overtly paranoid, more organized and engaged with staff. On interview today, he reports he does have some residual paranoia with retained insight. No paranoid thoughts elicited. He reports he is having thoughts about jumping out the window. He is able to describe past events, interests, hopes for the future. On exam, he is more cooperative. Affect is labile and he is easily tearful, irritable at times. TP is coherent, circumferential at times. Insight a nd judgment are fair. Clinical impression c/w schizoaffective disorder, with gradual improvement with titration of clozapine and re-initiation of depakote for mood stabilization. Brother expressed concern for worsening mental status this week. As he continues to endorse SI, recommend continuing 1:1observer and ongoing bed search for inpatient level of care. Reports subjective improvement on clozapine, which we can continue to titrate as needed to target mood, psychosis and suicidal ideation. Will continue to coordinate with his brother and outpatient providers. DSM-5 DIAGNOSIS: Schizoaffective disorder RECOMMENDATIONS: - Please continue 1:1 sitter - Patient meets section 12 criteria and cannot leave AMA; appreciate CM facilitating bed search forinpatient level of care -continue clozapine 25mg qAM + 200mg qHS -continue haloperidol 1mg qAM + 3mg qHS -continue trazodone 150mg qHS -continue depakote 500mg BID -continue to monitor and treat pain as you are doing -continue bowel regimen -we will continue to follow with you * Felipa Petit, PT - 06/24/2025 4:27 PM EDT PHYSICAL THERAPY PROGRESS NOTE Rehabilitation Services - Inpatient Physical Therapy Level of Care: Floor Interdisciplinary Recommendations PT Discharge rec: Short-term Rehab Movement Precautions: WB Status: Activity and Mobility Recommendations: [x]Patient is at high risk for deconditioning. Please maximize independence in ADLs and encourage frequent mobility including: Lift for all mobility including transfers to chair 3x/day []Patient is at risk for pressure injury. Please limit sitting time to one hour on standard air cushion given patient???s inability to effectively reposition in chair. [x]Patient is at risk for falls. Please use chair alarm when out of bed. [x]Patient is at risk for delirium. Please consider implementing strategies to reduce risk including: OOB to chair 3 day for all meals Familiar pictures and items within view News or nonverbal music on during daytime Lights on during day with shades UP Frequent Reorientation to clock, calendar, and window Encourage participation with ADLs Encourage family presence at bedside *For questions please check the patient???s care team for the most updated PT contact information [x]Updated medical status including labs, radiology, procedures and medications since previous visit reviewed Subjective: How would you grade my performance today? Patient-Stated Goal: To walk without holding onto anything by Sunday Objective: Hemodynamic Response/Aerobic Capacity VSS Functional Mobility Bed Mobility: Supine to Sit: Supervision Adaptive Equipment: HOB elevated, Side rails Transfers: Sit to Stand: Minimal assistance Stand to Sit: Contact guard Bed to chair: Moderate assistance Stand Step Transfer: Moderate assistance Transfer aid: Walker Gait: Ambulation Assistance: Moderate assistance Ambulation Distance (Feet): 3 Feet Assistive Device: Rolling walker Gait Deviations: (pt took 2-3 steps to chair, significant posterior lean, difficulty placing yanna feet) Stairs: Stair Assistance: Activity does not occur Balance: Sitting - Static: Supervision Sitting - Dynamic: Supervision Standing - Static: Contact guard, Minimal assistance, Moderate assistance (CG- >Min A-> Mod A as patient fatigued) Standing - Dynamic: Minimal assistance, Moderate assistance (Min A -> Mod A) Balance Interventions: Standing with manual challenges ADLs: Pt incontinent of stool t/o session, requires TA for lakesha-care; able to stand 1x for about one minute for cleaning; then only able to lift bottom 1/4 of chair for cleaning two more times Pain: Reports minor foot pain, does not rate Limiting Symptoms: Fatigue (Weakness) Other Tests and Measures: Cognition: Level of Consciousness: Alert Orientation Level: Oriented X4 Following Directions: Follows all directions without difficulty Success rate following directions: 100% of the time Patient Behaviors/Mood: Cooperative Attention to Tasks: Attends to task Safety Awareness: Decreased awareness of need for assistance, Decreased awareness of errors Insight: Impaired Problem Solving: Assistance required to identify errors made, Assistance required to generate solutions Intervention: Functional mobility training Patient/Caregiver Education RE: [x]Role of PT [x]PT plan of care [x]Fall risk reduction [x]Discharge recommendations [x]Mobility Recommendations []Other: []Silver Solderer utilized for session Team Communication: Communicated with [x]RN []MD [x]OT []CM RE: Patient status [x]Patient discussed at interdisciplinary team rounds. Pt left seated with all needs in reach, 1:1 present Assessment Clinical Impression: Carter Raymundo is a 70 y.o. male with a history of schizoaffective disorder who presents to physical therapy during hospitalization for management of psychosis, with course c/b COVID and PNA. Patient continues to slowly progress with PT, able to take a few steps to chair, however, still limited by significant deconditioning and impaired balance. Given that patient remains sofar below his functional baseline, he will require discharge to [facility] once medically stable. Treatment Plan: Therapeutic Activities/Functional Training Patient agrees with the above goals and is willing to participate in the rehabilitation program: Yes Time: 4243-5641 Physical Therapist Name: Felipa Petit PT Physical Therapist Pager: [phone] Physical Therapist License #: [id number] * Rachelle Condon OT - 06/24/2025 1:00 PM EDT OCCUPATIONAL THERAPY PROGRESS NOTE Rehabilitation Services - Inpatient Occupational Therapy Level of Care: Floor Interdisciplinary Recommendations OT Discharge rec: Rehab Movement Precautions: Fall risk Activity and Mobility Recommendations: [x]Patient is at high risk for deconditioning. Please maximize independence in ADLs and encourage frequent mobility including: Assist of 1-2 for out of bed to chair with RW 3x/day VS Lift for all mobility including transfers to chair 3x/day []Patient is at risk for pressure injury. Please limit sitting time to one hour on standard air cushion given patient???s inability to effectively reposition in chair. [x]Patient is at risk for falls. Please use chair alarm when out of bed. [x]Patient is at risk for delirium. Please consider implementing strategies to reduce risk including: OOB to chair 3 day for all meals Familiar pictures and items within view News or nonverbal music on during daytime Lights on during day with shades UP Frequent Reorientation to clock, calendar, and window Encourage participation with ADLs Encourage family presence at bedside *For questions please check the patient???s care team for the most updated OT contact information [x]Updated medical status including labs, radiology, procedures and medications since previous visit reviewed SUBJECTIVE: I have doubts, but I would like to try to walk Patient goal and desires: to take steps/walk OBJECTIVE: CLIENT FACTORS: Mental Functions: Level of Consciousness: Alert Orientation Level: Oriented X4 Following Directions: Follows all directions without difficulty Success rate following directions: 100% of the time Patient Behaviors/Mood: Calm, Cooperative Attention to Tasks: Attends to task Safety Awareness: Decreased awareness of need for assistance, Decreased awareness of deficits Insight: Impaired Problem Solving: Assistance required to generate solutions, Assistance required to implement solutions Behaviors: Alert, Cooperative Functional Communication: Intact OCCUPATIONS: Current Activities of Daily Living: Upper Body Dressing Assistance Required: Minimal assistance, to tie gown in back Where Assessed-Upper Body ADLs: Chair Lower Body Dressing Assistance Required : Minimal assistance, patient required min A to maintain figure four and thread toes into sock, once sock over toes, patient able to don in supine without assistance Where Assessed-Lower Body ADLs: Bed level Toileting Hygiene: Maximal assistance, patient required assistance to maintain standing balance, and total assistance for completing posterior hygiene in standing due to balance challenges and increased fatigue - able to stand 1x for about one minute for cleaning; then only able to lift bottom 1/4 of chair for cleaning two more times Functional Mobility Bed Mobility: Supine to Sit: Supervision Adaptive Equipment: HOB elevated, Side rails Sit to Supine: Activity does not occur , patient left in bedside recliner at end of session Transfers: Sit to Stand: Minimal assistance Stand to Sit: Contact guard Bed to chair: Moderate assistance Stand Step Transfer: Moderate assistance Transfer aid: Walker Gait Belt Used For Transfers: Yes Gait: Ambulation Assistance: Moderate assistance Ambulation Distance (Feet): 3 Feet Assistive Device: Rolling walker Balance: Sitting - Static: Supervision Sitting - Dynamic: Supervision Standing - Static: Contact guard, Minimal assistance, progressing to moderate assistance as patientfatigued Standing - Dynamic: Minimal assistance , moderate assistance [x]Vital signs monitored and found to be within normal limits Pain: 7/10 at rest. 7/10 with activity. 7/10 at recovery. Location: stomach/lower back Quality: sore Intervention: repositioning Limiting Symptoms: Fatigue Additional Tests/Measures: N/A Team Communication: Communicated with [x]RN [] [x]PT (co-treat) []CM RE: Patient status []Silver Solderer utilized for session Intervention: Patient/Caregiver Education RE: Role of OT OT plan of care Discharge recommendations ADL strategies Energy conservation Functional mobility/Functional balance training ADL/Occupation task training Activity tolerance training Pt left seated with all needs in reach, 1:1 present. ASSESSMENT/CLINICAL IMPRESSION: Carter Raymundo is a 70 y.o. male with a history of schizoaffectivedisorder, drug-induced parkinsonism, CKD, and PEG dependence who presents to occupational therapy during hospital stay for delirium on psychiatric decompensation with course c/b COVID+ with aspiration pneumonia, now awaiting cheli-psych placement. Pt continues to demonstrate improvements in occupational engagement as evidenced by increased functional mobility and increased participation in ADLs including dressing and grooming routines. Pt continues to present below baseline in areas specific to client factors such as activity tolerance and strength impacting performance on self care routines/fu nctional mobility. Based on current impairments and their impact on performance, patient will benefit from rehab for optimization of functional potential and safety. Acute OT will continue to follow and progress per intervention plan. Treatment Plan: ADL retraining, Balance training, Bed mobility, Energy conservation/pacing, Functional mobility training, IADL retraining, Neuromuscular reeducation, Patient/family education Patient agrees with the above goals and is willing to participate in the rehabilitation program: Yes Time: 3766-1409 Occupational Therapist Name: Rachelle Condon OT Occupational Therapist Pager: [phone] License #: [id number] * Nyla Zaman MD - 06/24/2025 7:15 AM EDT [facility] Medicine Progress Note Patient: Carter Raymundo Admission Date: 04/15/2025 Length of Stay: 69 PCP: Kilo Huynh Attending: Mariano Crabtree MD Chief Complaint: AMS OVERNIGHT EVENTS - NAEO SUBJECTIVE Patient reporting low back pain this am. Thinks this has been from working with PT, though he says he wants to continue to work at walking with them. Inquiring about G-tube and requesting to work with SOLAR DESIGN ENGINEER as he wants to get it removed. Told patient we want to be careful with his swallowing, and he was agreeable to continue to work with SOLAR DESIGN ENGINEER. He otherwise denies any acute concerns. Denies SOB or coughing. OBJECTIVE DATA VITALS T 97.8 ??F (36.6 ??C) HR (!) 96 BP 119/80 RR 20 SpO2 98 % 3 L/min O2 Device: None (Roomair) 75.8 kg (167 lb 1.7 oz) Body mass index is 23.31 kg/m??. PHYSICAL EXAM GENERAL: NAD, lying in bed comfortably. HEENT: No scleral icterus, MMM. CARDIAC: RRR, no m/r/g; extremities WWP, no LE edema. LUNG: Appears in no respiratory distress. No accessory muscle use. CTAB, no crackles, wheezes, or rhonchi. ABD: +BS. Abdomen soft, NTND. No rebound or guarding. MSK: No focal joint swelling or deformities. NEURO: Alert, oriented. EOMI. Face symmetric, speech normal. Moving all extremities against gravity. SKIN: No significant rashes, sores or wounds noted on exposed skin. PSYCH: Non-agitated. No pressured speech. Some evidence of grandiose thinking. LABS, MICROBIOLOGY and STUDIES reviewed in Epic. ASSESSMENT & PLAN 70 y.o. male with PMHx schizoaffective disorder, drug-induced parkinsonism, CKD, and PEG dependenceadmitted with delirium on psychiatric decompensation, later COVID+ with aspiration pneumonia, now stable on RA, awaiting cheli-psych placement vs SNF. ACTIVE ISSUES # Transient unresponsiveness, resolved # Acute delirium, resolved # Schizoaffective disorder # Suicidal ideation # Acute psychosis Multiple transient unresponsiveness events; stroke and seizure workup negative (CTH, MRI brain, EEG). Likely acute delirium on background of decompensated schizoaffective disorder. Psychiatry managing clozapine titration and adjuncts; haloperidol for augmentation and agitation. Meets Section 12 criteria. Week of 06/08 marked improvement in his alertness, insight, ability to communicate with the team, memory and self awareness and was able to work with PT and SOLAR DESIGN ENGINEER. However, at the same time he also began endorsing SI. On 06/12 evaluated by psychiatry and determined presentation consistent with acute psychosis in the setting of schizoaffective disorder, delirium and/or underlying neurocognitive d isorder (not previously diagnosed per records). Interdisciplinary rounds 06/12 with discussion of rehab vs psychiatric facility. Main barriers either direction will be physical strength/ ability to besomewhat independent (for a psych facility) vs his active psychosis and SI which would be hard for a rehab to manage. Possible given improvement that he may qualify for a rehab facility instead of a psychiatric one. - Psych following - weekly interdisciplinary meetings - c/w clozapine 25 mg qAM + 200 mg qhs (increased) 06/13 - c/w valproate 250mg TID - Psych increased valproate to 500mg PO qAM+ 500mg PO qHS 06/11 - Standing haloperidol to 1mg qD + 3mg qHS - c/w trazodone 150 mg qhs - c/w ramelteon 8 mg qhs - HCP affirmed; cannot leave AMA - f/up VPA level and clozapine level - VA lvl 49 on 06/15 - Re-evaluate early next week for sustained mental status improvement and absence of SI, and could be candidate for rehab # Oropharyngeal Dysphagia with G-Tube Dependence Pulled G-tube ??2 (replaced 05/12). Variable PO tolerance; aspiration risk high. High risk of complication with aspiration/pneumonia and would recommend that he remain NPO given potential medical setback in psych placement. However, patient 06/08 with improvements in mental status, could re-consider SOLAR DESIGN ENGINEER and video swallow. Discussion with HCP that he hopes Carter will be eventually able to transition from the G tube back to PO after swallow therapy. SOLAR DESIGN ENGINEER conversation 06/11 with barium swallow - still aspirating but improvement from prior. Per SOLAR DESIGN ENGINEER on review of his long history of dysphagia and swallow studies, he will likely always be at risk for aspiration and unlikely to meet nutritional needs on a full PO diet. Reasonable for PO for pleasure, with the understanding he will always be at risk for aspirating but we can minimize risk with oral hygiene, PT and proper precautions. Discussed withHCP who is in favor of PO for pleasure as well as patient who verbalized understanding that he is still at risk for aspiration and that we know he is aspirating. Discussed with HCP that it is likely he will need to have the G tube indefinitely to meet his nutritional needs - which will warrant further discussion in the future as it may not align with the patients GOC, QOL. - FSBG been trending WNL and no longer needing ISS. Since no hx of DM we can switch to back to a standard tube feed formula. Jevity 1.5 @ 85mL/hr x 16 hrs. 06/15. - c/w overnight tube feeds; adjustments per nutrition - Will proceed with PO for pleasure with liquid/ice cream/ pudding etc 3x daily max with oral hygiene before and after - Noted by nursing to be coughing with thin liquids - guanfenasin PRN - re-engage SOLAR DESIGN ENGINEER today #Leg pain/weakness # History of L4-L5 laminectomy Concern overnight 06/18 for leg pain with patient c/f stroke vs DVT. Overnight exam reassuring. In the am, patient continued to feel something was off with his left leg, but described more as pain/ tingling with exam revealing skin hypersensitivity without overt signs concerning for a DVT. Differential included stroke given the weakness in the L leg compared to right with leg lift, however, given overall reassuring neurological exam and more concern for pain with sensitive skin exam unlikely a neurologic etiology. He also has chronic lower back pain and did have some pain with passive lifting of leg down the leg, c/f sciatica. Not noted on PT session 06/18 or to have any new lower leg deficits. - CTM - Defer imaging at this time, but if change in neurological examination will consider further workup - continue pain management # Constipation / Diarrhea Hx severe stool burden on clozapine requiring aggressive bowel regimen; now with diarrhea intermittently. Responds well to mag citrate if refractory to other attempts. KUB 06/17 read as moderate stoolimpaction in the ascending colon, however, Carter is having Bms that are soft/somewhat formed decreasing concern for full impaction. Will CTM. - adjust bowel reg pending stool output - large episode of incontinence 06/21 # Tinea corporis/pedis - topical ketoconazole cream to feet/calf. Appears to have mild improvement. - If not improvement consider oral treatment, however, caution iso his mildly prolonged EKG. CHRONIC/STABLE/RESOLVED ISSUES # AHRF (resolved): i/s/o COVID/HAP s/p Remdesivir and HAP abx # Drug-induced Parkinsonism: Sinemet tapered and discontinued (05/28) # CAD: c/h atorvastatin # CKD: at baseline Cr # BPH: c/h tamsulosin # GERD: c/h famotidine CORE MEASURES - Access: PIV(s) - DVT ppx: Lovenox (patient intermittently refusing) - Code Status: Full Code - Contact/HCP: brother Delvin Raymundo [phone] Patient Contacts Name Legal Rel Relationship Phone Active Delvin Raymundo Health Care Agent Brother Yes - Disposition: -- Anticipated discharge to: Acute rehab facility -- Anticipated discharge date: 06/28 -- Anticipated discharge barriers: psych stabilization Extended Emergency Contact Information Primary Emergency Contact: Delvin Raymundo Mobile Relation: Brother Silver Solderer needed? No Nyla Zaman MD PGY-1 Dept of Medicine Cosigned by Mariano Crabtree MD at 06/24/2025 3:07 PM EDT Associated attestation - Mariano Crabtree MD - 06/24/2025 3:07 PM EDT I have seen and examined the patient, reviewed the findings and plan of care as documented by Nyla Zaman MD and agree, with additional comments below. Carter Raymundo is a 70 yo with schizoaffective disorder, drug induced parkinsonism, CKD, and G-tube placement, admitted for psychosis c/b COVID and aspiration pneumonia, who is now medically stable pending placement. He is overall feeling well today, but continues to endorse suicidal ideation at times and also is endorsing other symptoms of psychosis. He is in agreement to continue anti-psychotics. Given his improved oral intake, we will reach out to SOLAR DESIGN ENGINEER for repeat evaluation, and discuss with psychiatry regarding placement. I spent 44 minutes in total on this encounter today, including but not limited to review of data inelectronic medical record, [id number] evaluation, documentation, and coordination of care. Mariano Crabtree M.D. Chief Petrography Teacher. [facility] Clinical Fellow. Department of Infectious Diseases * Madelyn Bailey RN - 06/24/2025 3:38 AM EDT Pt alert and oriented x 3, cooperative with care focused on obtaining books from friend, pt reportslabile mood initially denies SI but then reporting having more suicidal thoughts I turn on a dime provided support cont with 1:1 sitter. Pt reporting + neck and shoulder pain, creams applied t+r for comfort. Pt took all meds via g tube, able to take tamsulosin with ice cream. Mouth care provided + congestion unrelated to po intake at times, tube feed cont to be cycled as [id number], voiding via male purewick, slept well overnight * Yogi Blevins, PT - 06/23/2025 1:05 PM EDT PHYSICAL THERAPY PROGRESS NOTE Rehabilitation Services - Inpatient Physical Therapy Level of Care: Floor Interdisciplinary Recommendations PT Discharge rec: (Rehab) Movement Precautions: Fall risk Activity and Mobility Recommendations: [x]Patient is at high risk for deconditioning. Please maximize independence in ADLs and encourage frequent mobility including: Assist of 1-2 for out of bed to chair with RW 3x/day VS Lift for all mobility including transfers to chair 3x/day [x]Patient is at risk for falls. Please use chair alarm when out of bed. [x]Patient is at risk for delirium. Please consider implementing strategies to reduce risk including: OOB to chair 3 day for all meals Familiar pictures and items within view News or nonverbal music on during daytime Lights on during day with shades UP Frequent Reorientation to clock, calendar, and window Encourage participation with ADLs Encourage family presence at bedside *For questions please check the patient???s care team for the most updated PT contact information [x]Updated medical status including labs, radiology, procedures and medications since previous visit reviewed Subjective: I suspect that doing PT will make my knees feel better Patient-Stated Goal: I want to be able to walk by Sunday Objective: Hemodynamic Response/Aerobic Capacity VS Stable throughout session Functional Mobility Bed Mobility: Pt received and left sitting in recliner at end of session Transfers: Sit to Stand: Minimal assistance Stand to Sit: Contact guard Performed 6 total sit<>stand transfers. Pt able to tolerate standing with assistance for 15-30 sec each repetition. Decreased stance time as pt fatigued Transfer Barriers: Balance, Gross motor strength, Cognition Gait Belt Used For Transfers: Yes Gait: Ambulation Assistance: Activity does not occur Balance: Sitting - Static: Supervision Sitting - Dynamic: Supervision Standing - Static: Contact guard, With bilateral upper extremity support, With assistive device Standing - Dynamic: Minimal assistance, Moderate assistance, With bilateral upper extremity support, With assistive device (During standing marching, pt with retropolusion requiring assitance to maintain upright posture) Pain: Pt reported bilateral knee pain at beginning of session with limited qualitative report. Following mobility, pain improved. Limiting Symptoms: Fatigue Other Tests and Measures: Cognition: Level of Consciousness: Alert Orientation Level: Oriented X4 Oriented to: Name, Date of , Day, Date, Month, Year, Place, Name of hospital Following Directions: Follows all directions without difficulty Success rate following directions: 100% of the time Patient Behaviors/Mood: Cooperative, Pleasant, Anxious Memory: Intact Attention to Tasks: Attends to task Tests of Attention: Intact, Days of week backwards Safety Awareness: Full awareness of safety precautions, Full awareness of deficits Insight: Impaired Problem Solving: Assistance required to generate solutions, Assistance required to identify errors made Intervention: Therapeutic activities Functional mobility training Balance training Therapeutic exercise: Performed 2 sets of standing marching; 2x5 bilaterally with seated recovery between sets Energy conservation Patient/Caregiver Education RE: [x]Role of PT [x]PT plan of care [x]Fall risk reduction [x]Discharge recommendations [x]Mobility Recommendations []Other: Team Communication: Communicated with [x]RN []MD []OT []CM RE: Patient status []Patient discussed at interdisciplinary team rounds. Pt left seated with all needs in reach, chair alarm for safety, 1:1 sitter in room Assessment Clinical Impression: Carter Raymundo is a 70 y.o. male with a history of schizoaffective disorder, drug-induced parkinsonism, CKD, and PEG dependence who presents to PT during hospital stay for delirium on psychiatric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 no abnormalities noted Station and gait: sitting up, gait not assessed Cognitive: Wakefulness/alertness: awake and alert Orientation: oriented to self, place, states date as 06/19/25 Attention: DOWB accurately Fund of knowledge: intact to interview Language: fluent in Thai Mental Status: Appearance: tearful, writing on several pieces of paper Behavior: conversational Mood: upset Affect: dysphoric Speech: regular rate, volume, prosody Thought process: linear, logical, goal directed Thought content: endorses SI, denies HI/AVH Judgment and insight: poor/poor DATA: CBC Lab Results Component Value Date WBC 8.69 06/15/2025 WBC 11.56 (H) 06/12/2025 WBC 19.00 (H) 06/10/2025 WBC 19.00 (H) 06/10/2025 HGB 11.6 (L) 06/15/2025 HGB 12.0 (L) 06/12/2025 HGB 12.8 (L) 06/10/2025 HCT 36.2 (L) 06/15/2025 HCT 37.1 (L) 06/12/2025 HCT 38.9 (L) 06/10/2025 PLT 256 06/15/2025 PLT 312 06/12/2025 PLT 307 06/10/2025 BMP Lab Results Component Value Date NA 142 06/15/2025 NA 142 06/12/2025 NA 142 06/10/2025 K 4.2 06/15/2025 K 4.1 06/12/2025 K 4.2 06/10/2025 CL 104 06/15/2025 CL 104 06/12/2025 CL 105 06/10/2025 CO2 29 06/15/2025 CO2 29 06/12/2025 CO2 28 06/10/2025 BUN 28 (H) 06/15/2025 BUN 28 (H) 06/12/2025 BUN 35 (H) 06/10/2025 CREATININE 0.90 06/15/2025 CREATININE 0.90 06/12/2025 CREATININE 0.90 06/10/2025 ANIONGAP 9 (L) 06/15/2025 ANIONGAP 9 (L) 06/12/2025 ANIONGAP 9 (L) 06/10/2025 ASSESSMENT: Carter Raymundo is a 70 y.o. with PMHx pertinent for schizoaffective disorder on clozapine, hypertension, CKD, oropharyngeal dysphagia c/b frequent aspiration now s/p PEG, drug-induced Parkinsonism, who presented from nursing facility with altered mental status with unresponsiveness and aphasia, now medically cleared. Psychiatry initially consulted for assistance with diagnostic clarification, with initial differential ddx of catatonia vs delirium/encephalopathy vs decompensated psychosis. Today, the patient endorsed worsened suicidal ideation following an upsetting conversation with a medical staff member. He is in agreement with bed search and emphasized preference to be admitted to [facility]. Patient did not appear delirious at the time of interview. DSM-5 DIAGNOSIS: Schizoaffective disorder RECOMMENDATIONS: - Please continue 1:1 sitter - Patient meets section 12 criteria and cannot leave AMA -Rest of recommendations as per Dr. Rivas's note Анна Anguiano MD PGY4 Psychiatry [id number] * Anabel Melchor MD - 06/21/2025 6:19 AM EDT [facility] Medicine Progress Note Patient: Carter Raymundo ( , 1955) Admission Date: 04/15/2025 PCP: Kilo Pinams Inpatient Attending: Param Abdi MD INTERVAL 24-hr events: - Yesterday: none, discussion with team on potential option for rehab vs psych - Overnight: none AM Subjective: Feels more fatigued today, notes this as a side effect of his medications. He has some abdominal pain - unfortunately had an episode of incontinence. Denies nausea, chest pain, or headache. OBJECTIVE Vitals: T 98.2 ??F (36.8 ??C) HR (!) 104 BP 126/77 RR 18 SpO2 95 % O2 Device: None (Room air) Wt 75.8 kg (167 lb 1.7 oz) Body mass index is 23.31 kg/m??. General: NAD HEENT: anicteric sclerae, moist membranes Cardiac: RRR, no m/r/g, no JVD Pulm: CTAB, non-labored Abdomen: soft, mildly tender, especially on the left. (Passing gas/BM). G tube dressing clean/intact. Extremities: no edema, warm Neuro: symmetric face, EOMI, fluent speech, moving all limbs. Able to lift both legs up off the bed, but able to lift the right leg higher than the left leg. Foot strength intact and equal bilaterally. MSK: No lower extremity edema on L or R. No new skin changes. . Skin: rash and peeling skin noted on feet/ R calf. Improving. Labs and reports reviewed in the chart. Pertinent findings are noted in the A/P. ASSESSMENT/PLAN 70 y.o. male with PMHx schizoaffective disorder, drug-induced parkinsonism, CKD, and PEG dependenceadmitted with delirium on psychiatric decompensation, later COVID+ with aspiration pneumonia, now stable on RA, awaiting cheli-psych placement vs SNF. ACTIVE ISSUES # Transient unresponsiveness, resolved # Acute delirium, resolved # Schizoaffective disorder # Suicidal ideation # Acute psychosis Multiple transient unresponsiveness events; stroke and seizure workup negative (CTH, MRI brain, EEG). Likely acute delirium on background of decompensated schizoaffective disorder. Psychiatry managing clozapine titration and adjuncts; haloperidol for augmentation and agitation. Meets Section 12 criteria. Week of 06/08 marked improvement in his alertness, insight, ability to communicate with the team, memory and self awareness and was able to work with PT and SOLAR DESIGN ENGINEER. However, at the same time he also began endorsing SI. On 06/12 evaluated by psychiatry and determined presentation consistent with acute psychosis in the setting of schizoaffective disorder, delirium and/or underlying neurocognitive d isorder (not previously diagnosed per records). Interdisciplinary rounds 06/12 with discussion of rehab vs psychiatric facility. Main barriers either direction will be physical strength/ ability to besomewhat independent (for a psych facility) vs his active psychosis and SI which would be hard for a rehab to manage. Possible given improvement that he may qualify for a rehab facility instead of a psychiatric one. - Psych following - weekly interdisciplinary meetings - c/w clozapine 25 mg qAM + 200 mg qhs (increased) 06/13 - c/w valproate 250mg TID - Psych increased valproate to 500mg PO qAM+ 500mg PO qHS 06/11 - Standing haloperidol to 1mg qD + 3mg qHS - c/w trazodone 150 mg qhs - c/w ramelteon 8 mg qhs - HCP affirmed; cannot leave AMA - f/up VPA level and clozapine level - VA lvl 49 on 06/15 - Re-evaluate early next week for sustained mental status improvement and absence of SI, and could be candidate for rehab. #Leg pain/weakness # History of L4-L5 laminectomy Concern overnight 06/18 for leg pain with patient c/f stroke vs DVT. Overnight exam reassuring. In the am, patient continued to feel something was off with his left leg, but described more as pain/ tingling with exam revealing skin hypersensitivity without overt signs concerning for a DVT. Differential included stroke given the weakness in the L leg compared to right with leg lift, however, given overall reassuring neurological exam and more concern for pain with sensitive skin exam unlikely a neurologic etiology. He also has chronic lower back pain and did have some pain with passive lifting of leg down the leg, c/f sciatica. Not noted on PT session 06/18 or to have any new lower leg deficits. - CTM - Defer imaging at this time, but if change in neurological examination will consider further workup # Oropharyngeal Dysphagia with G-Tube Dependence Pulled G-tube ??2 (replaced 05/12). Variable PO tolerance; aspiration risk high. High risk of complication with aspiration/pneumonia and would recommend that he remain NPO given potential medical setback in psych placement. However, patient 06/08 with improvements in mental status, could re-consider SOLAR DESIGN ENGINEER and video swallow. Discussion with HCP that he hopes Carter will be eventually able to transition from the G tube back to PO after swallow therapy. SOLAR DESIGN ENGINEER conversation 06/11 with barium swallow - still aspirating but improvement from prior. Per SOLAR DESIGN ENGINEER on review of his long history of dysphagia and swallow studies, he will likely always be at risk for aspiration and unlikely to meet nutritional needs on a full PO diet. Reasonable for PO for pleasure, with the understanding he will always be at risk for aspirating but we can minimize risk with oral hygiene, PT and proper precautions. Discussed withHCP who is in favor of PO for pleasure as well as patient who verbalized understanding that he is still at risk for aspiration and that we know he is aspirating. Discussed with HCP that it is likely he will need to have the G tube indefinitely to meet his nutritional needs - which will warrant further discussion in the future as it may not align with the patients GOC, QOL. - FSBG been trending WNL and no longer needing ISS. Since no hx of DM we can switch to back to a standard tube feed formula. Jevity 1.5 @ 85mL/hr x 16 hrs. 06/15. - c/w overnight tube feeds; adjustments per nutrition. - Will proceed with PO for pleasure with liquid/ice cream/ pudding etc 3x daily max with oral hygiene before and after. - Noted by nursing to be coughing with thin liquids # Constipation / Diarrhea Hx severe stool burden on clozapine requiring aggressive bowel regimen; now with diarrhea intermittently. Responds well to mag citrate if refractory to other attempts. KUB 06/17 read as moderate stoolimpaction in the ascending colon, however, Carter is having Bms that are soft/somewhat formed decreasing concern for full impaction. Will CTM. - adjust bowel reg pending stool output - large episode of incontinence 06/21 # Tinea corporis/pedis - topical ketoconazole cream to feet/calf. Appears to have mild improvement. - If not improvement consider oral treatment, however, caution iso his mildly prolonged EKG. CHRONIC ISSUES # AHRF (resolved): i/s/o COVID/HAP s/p Remdesivir and HAP abx # Drug-induced Parkinsonism: Sinemet tapered and discontinued (05/28) # CAD: c/h atorvastatin # CKD: at baseline Cr # BPH: c/h tamsulosin # GERD: c/h famotidine CORE MEASURES - Access: PIV(s) - DVT ppx: Lovenox (patient intermittently refusing) - Code Status: Full Code - Contact/HCP: brother Delvin Raymundo [phone] - Dispo: cheli-psych placement, trial with PT -- Anabel Melchor MD Resident, Internal Medicine Cosigned by Param Abdi MD at 06/21/2025 5:43 PM EDT Associated attestation - Param Abdi MD - 06/21/2025 5:43 PM EDT I have seen and examined , reviewed the findings and plan of care as documented by Anabel Melchor MD and agree, except for any additional comments below. I spent 40 minutes in this clinical encounter reviewing the medical record, seeing and examining the patient, placing orders, writing notes, performing signout, and communicating with the applicable medical and nursing teams. Param Abdi MD Attending Physician Section of Hospital Medicine [facility] * Patricia Holden MD - 06/20/2025 10:09 AM EDT [facility] Medicine Progress Note Patient: Carter Raymundo ( , 1955) Admission Date: 04/15/2025 PCP: K[facility]yn[facility] Inpatient Attending: Param Abdi MD INTERVAL 24-hr events: - Yesterday: none, discussion with team on potential option for rehab vs psych - Overnight: none AM Subjective: Carter is continuing to do well this morning. He had a good sleep last night. His abdomen still feels a little uncomfortable and he continues to express interest in having the G-tube removed, however, understands that he will need additional nutrition support for at least a while longer. Additionally he has noticed himself coughing with thin liquids and feels disturbed by this. I advised him to work on sitting fully upright when drinking, and that the cough is not a bad thing. Reiterated that we know he is aspirating, and that I spoke to the speech-language pathologist who emphasized that thin liquids are somewhat safer than thickened liquids to aspirate, so we will not be thickening his liq uids. He is hopeful to do further SOLAR DESIGN ENGINEER therapy in the future to work on reducing his aspiration riskbut is content at this time to continue with the p.o. for pleasure as we have been doing. OBJECTIVE Vitals: T 98.3 ??F (36.8 ??C) HR (!) 108 BP 136/86 RR 17 SpO2 96 % O2 Device: None (Room air) Wt 75.8 kg (167 lb 1.7 oz) Body mass index is 23.31 kg/m??. General: NAD HEENT: anicteric sclerae, moist membranes Cardiac: RRR, no m/r/g, no JVD Pulm: CTAB, non-labored Abdomen: soft, mildly tender, especially on the left. (Passing gas/BM). G tube dressing clean/intact. Extremities: no edema, warm Neuro: symmetric face, EOMI, fluent speech, moving all limbs. Cranial nerves intact. Upper extremities intact and equal bilaterally. Able to lift both legs up off the bed, but able to lift the right leg higher than the left leg. Foot strength intact and equal bilaterally. Pain with passive lifting of left leg, experiencing pain down left leg. MSK: left leg tender/painful/sensitive to light touch on the lateral aspect of the outer thigh. Tender behind the L knee, but not markedly more so than the right, and difficult to sense if it was dueto skin sensitivity. No lower extremity edema on L or R. No new skin changes. Noted by PT to be drooling more, not noted on am examinations. Skin: rash and peeling skin noted on feet/ R calf. Improving. Labs and reports reviewed in the chart. Pertinent findings are noted in the A/P. ASSESSMENT/PLAN 70 y.o. male with PMHx schizoaffective disorder, drug-induced parkinsonism, CKD, and PEG dependenceadmitted with delirium on psychiatric decompensation, later COVID+ with aspiration pneumonia, now stable on RA, awaiting cheli-psych placement. ACTIVE ISSUES # Transient unresponsiveness, resolved # Acute delirium, resolved # Schizoaffective disorder # Suicidal ideation # Acute psychosis Multiple transient unresponsiveness events; stroke and seizure workup negative (CTH, MRI brain, EEG). Likely acute delirium on background of decompensated schizoaffective disorder. Psychiatry managing clozapine titration and adjuncts; haloperidol for augmentation and agitation. Meets Section 12 criteria. Week of 06/08 marked improvement in his alertness, insight, ability to communicate with the team, memory and self awareness and was able to work with PT and SOLAR DESIGN ENGINEER. However, at the same time he also began endorsing SI. On 06/12 evaluated by psychiatry and determined presentation consistent with acute psychosis in the setting of schizoaffective disorder, delirium and/or underlying neurocognitive d isorder (not previously diagnosed per records). Interdisciplinary rounds 06/12 with discussion of rehab vs psychiatric facility. Main barriers either direction will be physical strength/ ability to besomewhat independent (for a psych facility) vs his active psychosis and SI which would be hard for a rehab to manage. Possible given improvement that he may qualify for a rehab facility instead of a psychiatric one. - Psych following - weekly interdisciplinary meetings - c/w clozapine 25 mg qAM + 200 mg qhs (increased) 06/13 - c/w valproate 250mg TID - Psych increased valproate to 500mg PO qAM+ 500mg PO qHS 06/11 - Standing haloperidol to 1mg qD + 3mg qHS - c/w trazodone 150 mg qhs - c/w ramelteon 8 mg qhs - HCP affirmed; cannot leave AMA - f/up VPA level and clozapine level - VA lvl 49 on 06/15 - Re-evaluate early next week for sustained mental status improvement and absence of SI, and could be candidate for rehab. #Leg pain/weakness # History of L4-L5 laminectomy Concern overnight 06/18 for leg pain with patient c/f stroke vs DVT. Overnight exam reassuring. In the am, patient continued to feel something was off with his left leg, but described more as pain/ tingling with exam revealing skin hypersensitivity without overt signs concerning for a DVT. Differential included stroke given the weakness in the L leg compared to right with leg lift, however, given overall reassuring neurological exam and more concern for pain with sensitive skin exam unlikely a neurologic etiology. He also has chronic lower back pain and did have some pain with passive lifting of leg down the leg, c/f sciatica. Not noted on PT session 06/18 or to have any new lower leg deficits. - CTM - Defer imaging at this time, but if change in neurological examination will consider further workup # Oropharyngeal Dysphagia with G-Tube Dependence Pulled G-tube ??2 (replaced 05/12). Variable PO tolerance; aspiration risk high. High risk of complication with aspiration/pneumonia and would recommend that he remain NPO given potential medical setback in psych placement. However, patient 06/08 with improvements in mental status, could re-consider SOLAR DESIGN ENGINEER and video swallow. Discussion with HCP that he hopes Carter will be eventually able to transition from the G tube back to PO after swallow therapy. SOLAR DESIGN ENGINEER conversation 06/11 with barium swallow - still aspirating but improvement from prior. Per SOLAR DESIGN ENGINEER on review of his long history of dysphagia and swallow studies, he will likely always be at risk for aspiration and unlikely to meet nutritional needs on a full PO diet. Reasonable for PO for pleasure, with the understanding he will always be at risk for aspirating but we can minimize risk with oral hygiene, PT and proper precautions. Discussed withHCP who is in favor of PO for pleasure as well as patient who verbalized understanding that he is still at risk for aspiration and that we know he is aspirating. Discussed with HCP that it is likely he will need to have the G tube indefinitely to meet his nutritional needs - which will warrant further discussion in the future as it may not align with the patients GOC, QOL. - FSBG been trending WNL and no longer needing ISS. Since no hx of DM we can switch to back to a standard tube feed formula. Jevity 1.5 @ 85mL/hr x 16 hrs. 06/15. - c/w overnight tube feeds; adjustments per nutrition. - Will proceed with PO for pleasure with liquid/ice cream/ pudding etc 3x daily max with oral hygiene before and after. - Noted by nursing to be coughing with thin liquids # Constipation / Diarrhea Hx severe stool burden on clozapine requiring aggressive bowel regimen; now with diarrhea intermittently. Responds well to mag citrate if refractory to other attempts. KUB 06/17 read as moderate stoolimpaction in the ascending colon, however, Carter is having Bms that are soft/somewhat formed decreasing concern for full impaction. Will CTM. - adjust bowel reg pending stool output - last BM 06/19, CTM # Tinea corporis/pedis - topical ketoconazole cream to feet/calf. Appears to have mild improvement. - If not improvement consider oral treatment, however, caution iso his mildly prolonged EKG. CHRONIC ISSUES # AHRF (resolved): i/s/o COVID/HAP s/p Remdesivir and HAP abx # Drug-induced Parkinsonism: Sinemet tapered and discontinued (05/28) # CAD: c/h atorvastatin # CKD: at baseline Cr # BPH: c/h tamsulosin # GERD: c/h famotidine CORE MEASURES - Access: PIV(s) - DVT ppx: Lovenox (patient intermittently refusing) - Code Status: Full Code - Contact/HCP: brother Delvin Raymundo [phone] - Dispo: cheli-psych placement, trial with PT -- Patricia Holden MD Resident, Internal Medicine Cosigned by Param Abdi MD at 06/20/2025 4:17 PM EDT Associated attestation - Param Abdi MD - 06/20/2025 4:17 PM EDT I have seen and examined , reviewed the findings and plan of care as documented by Patricia Holden MD and agree, except for any additional comments below. I spent 60 minutes in this clinical encounter reviewing the medical record, seeing and examining the patient, placing orders, writing notes, performing signout, and communicating with the applicable medical and nursing teams. Param Abdi MD Attending Physician Section of Hospital Medicine [facility] * Madelyn Bailey RN - 06/20/2025 3:51 AM EDT A+Ox4 cooperative with care, pt reporting + neck pain repositioning and voltaren gel applied, cont with tube feed as ordered all meds via peg, tolerated popsicle + cough at times not related to eating, voiding via purewick, incont stool x 1; slept well 1;1 sitter at bedside * Rachelle Condon OT - 06/19/2025 3:57 PM EDT OCCUPATIONAL THERAPY PROGRESS NOTE Rehabilitation Services - Inpatient Occupational Therapy Level of Care: Floor Interdisciplinary Recommendations OT Discharge rec: (see clinical impression) Movement Precautions: Fall risk Activity and Mobility Recommendations: [x]Patient is at high risk for deconditioning. Please maximize independence in ADLs and encourage frequent mobility including: Lift for all mobility including transfers to chair 3x/day [x]Patient is at risk for pressure injury. Please limit sitting time to one hour on standard air cushion given patient???s inability to effectively reposition in chair. [x]Patient is at risk for falls. Please use chair alarm when out of bed. [x]Patient is at risk for delirium. Please consider implementing strategies to reduce risk including: OOB to chair 3 day for all meals Familiar pictures and items within view News or nonverbal music on during daytime Lights on during day with shades UP Frequent Reorientation to clock, calendar, and window Encourage participation with ADLs Encourage family presence at bedside *For questions please check the patient???s care team for the most updated OT contact information [x]Updated medical status including labs, radiology, procedures and medications since previous visit reviewed SUBJECTIVE: I need to be walking! Patient goal and desires: to take steps OBJECTIVE: CLIENT FACTORS: Mental Functions: Level of Consciousness: Alert Orientation Level: Oriented X4 Following Directions: Follows all directions without difficulty Success rate following directions: 100% of the time Patient Behaviors/Mood: Appropriate, Cooperative Memory: Intact Attention to Tasks: Attends to task, Attends to conversation Safety Awareness: Full awareness of safety precautions Insight: Impaired Problem Solving: Assistance required to generate solutions, Assistance required to implement solutions Behaviors: Alert, Cooperative Functional Communication: Intact Communication/Social skills comments: able to express needs effectively OCCUPATIONS: Current Activities of Daily Living: Grooming: Setup Where Assessed - Grooming: Chair Upper Body Dressing Assistance Required: Minimal assistance to tie/adjust gown Where Assessed-Upper Body ADLs: Chair, Edge of bed Functional Mobility Bed Mobility: Supine to Sit: Contact guard Adaptive Equipment: HOB elevated, Side rails Sit to Supine: Activity does not occur (patient in recliner at end of session) Transfers: Sit to Stand: Minimal assistance, 2 person Stand to Sit: Minimal assistance Bed to chair: Moderate assistance, 2 person Transfer aid: Walker Gait Belt Used For Transfers: Yes Gait: Ambulation Assistance: Activity does not occur Balance: Sitting - Static: Supervision Sitting - Dynamic: Supervision Standing - Static: Minimal assistance, With assistive device Standing - Dynamic: Moderate assistance, 2 person Pain: /10 at rest. /10 with activity. /10 at recovery. Location: Quality: Intervention: repositioning Limiting Symptoms: Fatigue Additional Tests/Measures: N/A Team Communication: Communicated with [x]RN []MD [x]PT (co-treat) []CM RE: Patient status []Silver Solderer utilized for session Intervention: Patient/Caregiver Education RE: Role of OT OT plan of care Energy conservation Functional mobility/Functional balance training ADL/Occupation task training Activity tolerance training Pt left seated with all needs in reach, chair alarm for safety ASSESSMENT/CLINICAL IMPRESSION: Carter Raymundo is a 70 y.o. male with a history of schizoaffectivedisorder, drug-induced parkinsonism, CKD, and PEG dependence who presents to occupational therapy during hospital stay for delirium on psychiatric decompensation with course c/b COVID+ with aspiration pneumonia, now awaiting cheli-psych placement. Pt continues to demonstrate improvements in occupational engagement as evidenced by increased functional mobility and increased participation in ADLs including dressing and grooming routines. Pt continues to present below baseline in areas specific to client factors such as activity tolerance, pain, strength, and balance impacting performance in self care tasks and functional mobility. Based on current impairments and their impact on performance, patient will benefit from rehab for optimization of functional potential and safety. Per discussion with team, current plan is for IP psych placement. Acute OT will continue to follow and progress per i ntervention plan to optimize independence while he remains in house. Treatment Plan: ADL retraining, Balance training, Bed mobility, Functional mobility training, IADL retraining, Patient/family education Patient agrees with the above goals and is willing to participate in the rehabilitation program: Yes Time: 7844-1149 Occupational Therapist Name: Rachelle Condon OT Occupational Therapist Pager: [phone] License #: [id number] * Demetra Hawkins, PT - 06/19/2025 3:02 PM EDT PHYSICAL THERAPY PROGRESS NOTE Rehabilitation Services - Inpatient Physical Therapy Level of Care: Floor Interdisciplinary Recommendations PT Discharge rec: (rehab) Activity and Mobility Recommendations: [x]Patient is at high risk for deconditioning. Please maximize independence in ADLs and encourage frequent mobility including: Assist of x2 for out of bed to chair with bilateral UE support 3x/day via stand pivot vs lift pending patient fatigue []Patient is at risk for pressure injury. Please limit sitting time to one hour on standard air cushion given patient???s inability to effectively reposition in chair. [x]Patient is at risk for falls. Please use chair alarm when out of bed. [x]Patient is at risk for delirium. Please consider implementing strategies to reduce risk including: OOB to chair 3 day for all meals Familiar pictures and items within view News or nonverbal music on during daytime Lights on during day with shades UP Frequent Reorientation to clock, calendar, and window Encourage participation with ADLs Encourage family presence at bedside *For questions please check the patient???s care team for the most updated PT contact information [x]Updated medical status including labs, radiology, procedures and medications since previous visit reviewed Subjective: I'll be walking in no time Patient-Stated Goal: none stated. Agreeable to PT session Objective: Hemodynamic Response/Aerobic Capacity VSS and monitored throughout session. Patient denies lightheaded/dizziness throughout Relevant cardiac medications reviewed per EMR Functional Mobility Bed Mobility: Supine to Sit: Contact guard Adaptive Equipment: HOB elevated, Side rails Sit to Supine: Activity does not occur (patient in recliner at end of session) Transfers: Sit to Stand: Minimal assistance, 2 person (patient completing x3 reps of STS requiring cues for upright posture) Stand to Sit: Minimal assistance Bed to chair: Moderate assistance, 2 person (via squat pivot) Transfer aid: Walker Gait Belt Used For Transfers: Yes Gait: Ambulation Assistance: Activity does not occur Balance: Sitting - Static: Supervision Sitting - Dynamic: Supervision Standing - Static: Minimal assistance, With assistive device Standing - Dynamic: Moderate assistance, 2 person Balance Interventions: Sitting reaching activities, Weight shifting, Bilateral stance Pain: Patient denies throughout session Limiting Symptoms: Fatigue Other Tests and Measures: Cognition: Level of Consciousness: Alert Orientation Level: Oriented X4 Following Directions: Follows all directions without difficulty Success rate following directions: 100% of the time Patient Behaviors/Mood: Appropriate, Cooperative, Pleasant Attention to Tasks: Attends to task, Attends to conversation Safety Awareness: Full awareness of safety precautions, Full awareness of deficits Insight: Impaired Problem Solving: Assistance required to identify errors made Intervention: Therapeutic activities Functional mobility training Balance training Endurance training Energy conservation Patient/Caregiver Education RE: [x]Role of PT [x]PT plan of care [x]Fall risk reduction [x]Discharge recommendations [x]Mobility Recommendations []Other: []Silver Solderer utilized for session Team Communication: Communicated with [x]RN [x]MD [x]OT [x]CM RE: Patient status [x]Patient discussed at interdisciplinary team rounds. Pt left seated with all needs in reach, chair alarm for safety Assessment Clinical Impression: Carter Raymundo is a 70 y.o. male with a history of schizoaffective disorder, drug-induced parkinsonism, CKD, and PEG dependence who presents to PT during hospital stay for delirium on psychiatric decompensation with course c/b COVID+ with aspiration pneumonia, now awaiting cheli-psych placement. Pt is making steady progress as demonstrated by increased sit to stand repetitions as compared to previous visit. Pt continues to function below baseline limited by the primary impairment/activity limitation of impaired strength, endurance and dynamic balance which is likely due to deconditioning iso prolonged hospitalization. Based on current impairments, patient will benefit from rehab for optimization of functional potential and safety. Per discussion with team, current plan is for IP psych placement. Acute PT will continue to follow to optimize independence while he remains in house. Treatment Plan: Balance training, Bed mobility, Gait training/stairs, Therapeutic Activities/Functional Training, Therapeutic Exercise, Transfer training Patient agrees with the above goals and is willing to participate in the rehabilitation program: Yes Time: [id number] Physical Therapist Name: DEMETRA HAWKINS PT Physical Therapist Pager: [phone] License #: [id number] * Nicole Ramirez - 06/19/2025 9:15 AM EDT NUTRITION FOLLOW UP NOTE SUBJECTIVE: Asleep, tube feeds off per cycled orders, sitter in room. OBJECTIVE: Height: 71 in Admit weight: 75.8 kg (bed, 04/17) Current weight: No updated weights Pertinent Meds: famotidine, liquid multivitamin w/ minerals, polyethylene glycol, senna, simethicone. Others noted. Food Allergies: NKFA Diet Order: NPO - CAN have specific snacks (1x/meal) (see comment in diet order). Tube Feed Order: Jevity 1.5 @ 85 mL/hr x16 hrs (provides: 2040 kcal, 87 g protein, 1034 mL free water). With 250 mL flushes q4h (+1500 mL). Total 2534 mL free water/day. Access Type: PEG. GI/Abdomen: Abdomen soft, rounded, non-tender per flowsheets. LBM x3 (06/18/25). Skin: No pressure injuries noted. Drains: None. Extremities: No LE edema noted. Nutrition Focused Physical Exam: Deferred. ASSESSMENT: Estimated Nutrition Needs: Calories: 6765-0668 kcal (25-30 kcal/kg) Protein: 85-106 g (1.2-1.5 g/kg) Fluids: 6302-0066 mL (25-30 mL/kg) Estimated Needs Calculated Usin.9 kg (156 lb 4.9 oz) (weight at rehab) Specifics: 70M w/ PMHx significant for schizoaffective disorder, drug-induced parkinsonism, CKD, & PEG dependence. Admitted (04/15/25) w/ delirium on psychiatric decompensation, later COVID+ w/ aspiration PNA. Stable on RA, awaiting cheli- psych placement. Nutrition following. Switched to standard fiber-containing tube feed formula (06/15) iso no longer needing carb-controlled regimen given stable FSBG. Also on specific POs/snacks for comfort (see diet comment note for specific foods allowed) - otherwise NPO. Current tube feed regimen remains appropriate to provide 100% of nutrition needs & can continue specific snacks for comfort. No labs obtained since 06/15 of which lytes & serum glucose wasWNL, obtain updated Chem10 & serum BG as able to trend. No updated weights since admission. Nutrition to follow for tube feed management. Interventions / Recommendations: NPO as diet - patient can have specific snacks per diet order comment. Continue tube feeds as ordered: Jevity 1.5 @ 85 mL/hr x16 hrs (provides: 2040 kcal, 87 g protein, 1034 mL free water). With 250 mL flushes q4h (+1500 mL). Total 2534 mL free water/day. Monitor updated FSBG or serum BG vs need to switch back to carbohydrate- controlled formula. Monitor lytes intermittently/serum BG. Continue multivitamin w/ minerals as ordered. Continue bowel regimen as ordered. Obtain updated weight. Nutrition to continue to follow, please message or page [phone] with any questions/concerns Signed by: Nicole Ramirez, MS, RD, LDN 06/19/25 9:15 AM * Patricia Holden MD - 06/19/2025 7:46 AM EDT [facility] Medicine Progress Note Patient: Carter Raymundo ( , 1955) Admission Date: 04/15/2025 PCP: Kilo Huynh Inpatient Attending: Govind Olivo MD INTERVAL 24-hr events: - Yesterday: Calm yesterday. Re-visited in the PM regarding his leg symptoms, improved after the gabapentin. Notes that he has actually been having more difficulty with his L leg for some time, and that the weakness is not new. On repeat exam no tenderness behind the knee or swelling. Skin still sensitive. - Overnight: none AM Subjective: Doing well this morning. Continues to be in good spirits, working hard with PT and pleased with hisprogress. Feels that he no longer needs the G tube, however, discussed with him that he likely willneed it for a good amount of time to maintain his nutritional needs. Discussion this afternoon with interdisciplinary team that he has not been reporting SI within the last several days and his mood seems to have stabilized. Hopeful he may actually be able to go to a rehab for more intensive physical strengthening. OBJECTIVE Vitals: T 97.8 ??F (36.6 ??C) HR (!) 100 BP 132/83 RR 16 SpO2 97 % O2 Device: None (Room air) Wt 75.8 kg (167 lb 1.7 oz) Body mass index is 23.31 kg/m??. General: NAD HEENT: anicteric sclerae, moist membranes Cardiac: RRR, no m/r/g, no JVD Pulm: CTAB, non-labored Abdomen: soft, mildly tender, especially on the left. (Passing gas/BM). G tube dressing clean/intact. Extremities: no edema, warm Neuro: symmetric face, EOMI, fluent speech, moving all limbs. Cranial nerves intact. Upper extremities intact and equal bilaterally. Able to lift both legs up off the bed, but able to lift the right leg higher than the left leg. Foot strength intact and equal bilaterally. Pain with passive lifting of left leg, experiencing pain down left leg. MSK: left leg tender/painful/sensitive to light touch on the lateral aspect of the outer thigh. Tender behind the L knee, but not markedly more so than the right, and difficult to sense if it was dueto skin sensitivity. No lower extremity edema on L or R. No new skin changes. Noted by PT to be drooling more. Skin: rash and peeling skin noted on feet/ R calf. Stable. Labs and reports reviewed in the chart. Pertinent findings are noted in the A/P. ASSESSMENT/PLAN 70 y.o. male with PMHx schizoaffective disorder, drug-induced parkinsonism, CKD, and PEG dependenceadmitted with delirium on psychiatric decompensation, later COVID+ with aspiration pneumonia, now stable on RA, awaiting cheli-psych placement. ACTIVE ISSUES # Transient unresponsiveness, resolved # Acute delirium, resolved # Schizoaffective disorder # Suicidal ideation # Acute psychosis Multiple transient unresponsiveness events; stroke and seizure workup negative (CTH, MRI brain, EEG). Likely acute delirium on background of decompensated schizoaffective disorder. Psychiatry managing clozapine titration and adjuncts; haloperidol for augmentation and agitation. Meets Section 12 criteria. Week of 06/08 marked improvement in his alertness, insight, ability to communicate with the team, memory and self awareness and was able to work with PT and SOLAR DESIGN ENGINEER. However, at the same time he also began endorsing SI. On 06/12 evaluated by psychiatry and determined presentation consistent with acute psychosis in the setting of schizoaffective disorder, delirium and/or underlying neurocognitive d isorder (not previously diagnosed per records). Interdisciplinary rounds 06/12 with discussion of rehab vs psychiatric facility. Main barriers either direction will be physical strength/ ability to besomewhat independent (for a psych facility) vs his active psychosis and SI which would be hard for a rehab to manage. Possible given improvement that he may qualify for a rehab facility instead of a psychiatric one. - Psych following - weekly interdisciplinary meetings - c/w clozapine 25 mg qAM + 200 mg qhs (increased) 06/13 - c/w valproate 250mg TID - Psych increased valproate to 500mg PO qAM+ 500mg PO qHS 06/11 - Standing haloperidol to 1mg qD + 3mg qHS - c/w trazodone 150 mg qhs - c/w ramelteon 8 mg qhs - HCP affirmed; cannot leave AMA - f/up VPA level and clozapine level - VA lvl 49 on 06/15 - Re-evaluate early next week for sustained mental status improvement and absence of SI, and could be candidate for rehab. #Leg pain/weakness # History of L4-L5 laminectomy Concern overnight 06/18 for leg pain with patient c/f stroke vs DVT. Overnight exam reassuring. In the am, patient continued to feel something was off with his left leg, but described more as pain/ tingling with exam revealing skin hypersensitivity without overt signs concerning for a DVT. Differential included stroke given the weakness in the L leg compared to right with leg lift, however, given overall reassuring neurological exam and more concern for pain with sensitive skin exam unlikely a neurologic etiology. He also has chronic lower back pain and did have some pain with passive lifting of leg down the leg, c/f sciatica. Not noted on PT session 06/18 or to have any new lower leg deficits. - CTM - Defer imaging at this time, but if change in neurological examination will consider further workup # Oropharyngeal Dysphagia with G-Tube Dependence Pulled G-tube ??2 (replaced 05/12). Variable PO tolerance; aspiration risk high. High risk of complication with aspiration/pneumonia and would recommend that he remain NPO given potential medical setback in psych placement. However, patient 06/08 with improvements in mental status, could re-consider SOLAR DESIGN ENGINEER and video swallow. Discussion with HCP that he hopes Carter will be eventually able to transition from the G tube back to PO after swallow therapy. SOLAR DESIGN ENGINEER conversation 06/11 with barium swallow - still aspirating but improvement from prior. Per SOLAR DESIGN ENGINEER on review of his long history of dysphagia and swallow studies, he will likely always be at risk for aspiration and unlikely to meet nutritional needs on a full PO diet. Reasonable for PO for pleasure, with the understanding he will always be at risk for aspirating but we can minimize risk with oral hygiene, PT and proper precautions. Discussed withHCP who is in favor of PO for pleasure as well as patient who verbalized understanding that he is still at risk for aspiration and that we know he is aspirating. Discussed with HCP that it is likely he will need to have the G tube indefinitely to meet his nutritional needs - which will warrant further discussion in the future as it may not align with the patients GOC, QOL. - FSBG been trending WNL and no longer needing ISS. Since no hx of DM we can switch to back to a standard tube feed formula. Jevity 1.5 @ 85mL/hr x 16 hrs. 06/15. - c/w overnight tube feeds; adjustments per nutrition. - Will proceed with PO for pleasure with liquid/ice cream/ pudding etc 3x daily max with oral hygiene before and after. - Noted by nursing to be coughing with thin liquids # Constipation / Diarrhea Hx severe stool burden on clozapine requiring aggressive bowel regimen; now with diarrhea intermittently. Responds well to mag citrate if refractory to other attempts. KUB 06/17 read as moderate stoolimpaction in the ascending colon, however, Carter is having Bms that are soft/somewhat formed decreasing concern for full impaction. Will CTM. - adjust bowel reg pending stool output - last BM 06/16, CTM # Tinea corporis/pedis - topical ketoconazole cream to feet/calf. Appears to have mild improvement. - If not improvement consider oral treatment, however, caution iso his mildly prolonged EKG. CHRONIC ISSUES # AHRF (resolved): i/s/o COVID/HAP s/p Remdesivir and HAP abx # Drug-induced Parkinsonism: Sinemet tapered and discontinued (05/28) # CAD: c/h atorvastatin # CKD: at baseline Cr # BPH: c/h tamsulosin # GERD: c/h famotidine CORE MEASURES - Access: PIV(s) - DVT ppx: Lovenox (patient intermittently refusing) - Code Status: Full Code - Contact/HCP: brother Delvin Raymundo [phone] - Dispo: cheli-psych placement, trial with PT -- Patricia Holden MD Resident, Internal Medicine Cosigned by Govind Olivo MD at 06/19/2025 5:58 PM EDT Associated attestation - Govind Olivo MD - 06/19/2025 5:58 PM EDT I saw and examined the patient personally today. I evaluated the available laboratory report, and imaging data; reviewed the active medication list; and assisted the resident with formulating the clinical plan on team rounds. I agree with the resident???s documented history, exam, and plan with additional comments below. 70/M with history of schizoaffective disorder c/b drug-induced parkinsonism, HTN, and oropharyngealdysphagia s/p G-tube on TF who initially presented for acute psychosis and concern for psychiatric decompensation. Course complicated by acute hypoxemic respiratory failure secondary to COVID pneumonia that is now resolved. Awaiting placement (psych vs rehab). #Acute psychosis (improving) #Schizoaffective disorder #Deconditioning Overall improved but still requiring 1:1 sitter. Continue clozapine, depakote, haldol, trazodone, and gabapentin per Psych recs. Awaiting clozapine level. He is starting to work with PT. Had MDR discussion today with psych, nursing, PT. Inpatient psych placement will remain difficult due to his physical deconditioning. He is improved from a psychiatric standpoint compared to last week and has nothad any SI. If he remains stable by next week, can consider sending to STR instead. #Sinus tachycardia Chronic and may be related to clozapine which has anticholinergic effect and was uptitrated. CTA chest done this admission with no PE. Continue Lovenox for DVT ppx. #Abdominal distention Abdominal Xray read as possible impaction but patient having good BM daily and stool is semi-formedand not consistent with overflow diarrhea so less likely. Continue current bowel regimen. The rest as documented below. Time in care: Spent 51 minutes in patient care activities today including time with the patient at the bedside, reviewing prior medical history, reviewing clinical data, reviewing recent and new study results, clinical reasoning & decision-making, communicating with Psychiatry and housestaff team, and documentation. * Rachelle Condon, OT - 06/18/2025 5:50 PM EDT OCCUPATIONAL THERAPY PROGRESS NOTE Rehabilitation Services - Inpatient Occupational Therapy Level of Care: Floor Interdisciplinary Recommendations OT Discharge rec: see clinical impression Movement Precautions: Fall risk Activity and Mobility Recommendations: [x]Patient is at high risk for deconditioning. Please maximize independence in ADLs and encourage frequent mobility including: Lift for all mobility including transfers to chair 3x/day [x]Patient is at risk for pressure injury. Please limit sitting time to one hour on standard air cushion given patient???s inability to effectively reposition in chair. [x]Patient is at risk for falls. Please use chair alarm when out of bed. [x]Patient is at risk for delirium. Please consider implementing strategies to reduce risk including: OOB to chair 3 day for all meals Familiar pictures and items within view News or nonverbal music on during daytime Lights on during day with shades UP Frequent Reorientation to clock, calendar, and window Encourage participation with ADLs Encourage family presence at bedside *For questions please check the patient???s care team for the most updated OT contact information [x]Updated medical status including labs, radiology, procedures and medications since previous visit reviewed SUBJECTIVE: This is a prayer come true RE: PT/OT entering room for session Patient goal and desires: to take steps to the chair OBJECTIVE: CLIENT FACTORS: Mental Functions: Level of Consciousness: Alert Orientation Level: Oriented X4 Oriented to: Name, Date of , Month, Year, City, [facility] Disoriented to: Day Following Directions: Follows one step directions without difficulty Success rate following directions: 100% of the time Patient Behaviors/Mood: Cooperative, Calm Memory: Intact Attention to Tasks: Attends to task, Attends to conversation Tests of Attention: Intact, Days of week backwards Safety Awareness: Decreased awareness of deficits, Decreased awareness of safety precautions Insight: Impaired Problem Solving: Assistance required to generate solutions, Assistance required to implement solutions Behaviors: Alert, Appropriate, Cooperative Functional Communication: Intact Communication/Social skills comments: able to express needs effectively OCCUPATIONS: Current Activities of Daily Living: Upper Body Dressing Assistance Required: Minimal assistance (doff/don gown) Where Assessed-Upper Body ADLs: Chair Functional Mobility Bed Mobility: Supine to Sit: Contact guard Adaptive Equipment: HOB elevated, Side rails Sit to Supine: Activity does not occur Transfers: Sit to Stand: Minimal assistance, 2 person Stand to Sit: Minimal assistance, 2 person Bed to chair: Moderate assistance, 2 person Stand Step Transfer: Moderate assistance, 2 person Transfer aid: Walker Gait Belt Used For Transfers: Yes Gait: Ambulation Assistance: Activity does not occur Balance: Sitting - Static: Supervision Sitting - Dynamic: Supervision Standing - Static: Minimal assistance, 2 person, With assistive device Standing - Dynamic: Moderate assistance, 2 person, With assistive device [x]Vital signs monitored and found to be within normal limits with exceptions noted in Flowsheets/detailed below Hemodynamic Response/Aerobic Capacity HR BP O2 REST Supine Sit 75 122/78 97 RA Stand ACTIVITY (transfer) 112 RECOVERY (Seated) 94 134/82 98 RA Pain: Sore /10 at rest. 8/10 with activity. sore/10 at recovery. Location: lower back Quality: sore,ache Intervention: repositioning Ice pack provided Limiting Symptoms: Pain Fatigue Additional Tests/Measures: N/A Team Communication: Communicated with [x]RN []MD [x]PT []CM RE: Patient status []Silver Solderer utilized for session Intervention: Patient/Caregiver Education RE: Role of OT OT plan of care Discharge recommendations ADL strategies Functional mobility/Functional balance training ADL/Occupation task training Activity tolerance training Pt left seated with all needs in reach, chair alarm for safety ASSESSMENT/CLINICAL IMPRESSION: Carter Raymundo is a 70 y.o. male with a history of schizoaffectivedisorder, drug-induced parkinsonism, CKD, and PEG dependence who presents to occupational therapy during hospital stay for delirium on psychiatric decompensation with course c/b COVID+ with aspiration pneumonia, now awaiting cheli-psych placement. Pt is demonstrating improvements in occupational engagement as evidenced by increased functional mobility and increased participation in ADLs including dressing routines. Pt continues to present below baseline in areas specific to client factors such as activity tolerance, pain, strength, and balance impacting performance in self care tasks and functional mobility. Based on current impairments and their impact on performance, patient will benefit from rehab for optimization of functional potential and safety. Per discussion with team, current plan is for IP psych placement. Acute OT will continue to follow and progress per intervention plan to optimize independence while he remains in house. Treatment Plan: ADL retraining, Balance training, Bed mobility, Energy conservation/pacing, IADL retraining, Functional mobility training, Patient/family education Patient agrees with the above goals and is willing to participate in the rehabilitation program: Yes Time: 4688-0634 Occupational Therapist Name: Rachelle Condon OT Occupational Therapist Pager: [phone] License #: [id number] * Luiza Barone, PT - 06/18/2025 5:12 PM EDT PHYSICAL THERAPY PROGRESS NOTE Rehabilitation Services - Inpatient Physical Therapy Level of Care: Floor Interdisciplinary Recommendations PT Discharge rec: See full impression Activity and Mobility Recommendations: [x]Patient is at high risk for deconditioning. Please maximize independence in ADLs and encourage frequent mobility including: Lift for all mobility including transfers to chair 3x/day [x]Patient is at risk for pressure injury. Please limit sitting time to one hour on standard air cushion given patient???s inability to effectively reposition in chair. [x]Patient is at risk for falls. Please use chair alarm when out of bed. [x]Patient is at risk for delirium. Please consider implementing strategies to reduce risk including: OOB to chair 3 day for all meals Familiar pictures and items within view News or nonverbal music on during daytime Lights on during day with shades UP Frequent Reorientation to clock, calendar, and window Encourage participation with ADLs Encourage family presence at bedside *For questions please check the patient???s care team for the most updated PT contact information [x]Updated medical status including labs, radiology, procedures and medications since previous visit reviewed Subjective: This is a prayer come true RE: PT/OT entering room for session Patient-Stated Goal: To take steps Objective: Hemodynamic Response/Aerobic Capacity HR BP O2 REST Supine Sit 75 122/78 97 RA Stand ACTIVITY (transfer) 112 RECOVERY (Seated) 94 134/82 98 RA Functional Mobility Bed Mobility: Supine to Sit: Contact guard Adaptive Equipment: HOB elevated, Side rails Sit to Supine: Activity does not occur Transfers: Sit to Stand: Minimal assistance, 2 person Stand to Sit: Minimal assistance, 2 person Bed to chair: Moderate assistance, 2 person Stand Step Transfer: Moderate assistance, 2 person Transfer aid: Walker Gait Belt Used For Transfers: Yes Gait: Ambulation Assistance: Activity does not occur Stairs: Stair Assistance: Activity does not occur Balance: Sitting - Static: Supervision Sitting - Dynamic: Supervision Standing - Static: Minimal assistance, 2 person, With assistive device (Significant posterior lean,able to correct slightly with cues) Standing - Dynamic: Moderate assistance, 2 person, With assistive device Balance Interventions: Weight shifting (Standing marching) No LOB with above functional mobility. Pain: Pt endorses lower back pain at rest. Unchanged with activity. Improved at recovery (in chair). Location: Lower back Quality: Ache, sore, not rated on NPRS- Pt endorses pain is likely from positioning in the bed Intervention: repositioning ice/hot pack provided educated on non-pharmacological pain management techniques notified RN and MD Limiting Symptoms: Pain, Fatigue Other Tests and Measures: Cognition: Level of Consciousness: Alert Orientation Level: Oriented X4 Oriented to: Name, Date of , Month, Year, City, Name of hospital Disoriented to: Day Following Directions: Follows one step directions without difficulty Success rate following directions: 100% of the time Patient Behaviors/Mood: Cooperative Memory: Intact Attention to Tasks: Attends to task, Attends to conversation Tests of Attention: Intact, Days of week backwards Safety Awareness: Decreased awareness of deficits, Decreased awareness of errors Insight: Impaired Problem Solving: Assistance required to identify errors made, Assistance required to generate solutions, Assistance required to implement solutions Intervention: Therapeutic activities Functional mobility training Balance training Endurance training Patient/Caregiver Education RE: [x]Role of PT [x]PT plan of care [x]Fall risk reduction [x]Discharge recommendations [x]Mobility Recommendations []Other: Team Communication: Communicated with [x]RN [x]MD [x]OT []CM RE: Patient status [x]Patient discussed at interdisciplinary team rounds. []Silver Solderer utilized for session Pt left seated with all needs in reach, chair alarm for safety. Assessment Clinical Impression: Carter Raymundo is a 70 y.o. male with a history of schizoaffective disorder, drug-induced parkinsonism, CKD, and PEG dependence who presents to PT during hospital stay for delirium on psychiatric decompensation with course c/b COVID+ with aspiration pneumonia, now awaiting cheli-psych placement. Pt is making steady progress as evidenced by achievement of stand-step transfer on this date, as compared to previous PT visits. Despite these improvements, Pt continues to function below baseline limited by the primary impairment/activity limitation of decreased activity tolerance, likely due to acute pain and deconditioning c/w decreased mobility throughout prolonged and ongoing hospitalization. Based on current impairments, patient will benefit from rehab for optimization of functional potential and safety. Per discussion with team, current plan is for IP psych placement. Acute PT will continue to follow to optimize independence while he remains in house. Treatment Plan: Balance training, Bed mobility, Pain management strategies, Patient / Family education, TherapeuticActivities/Functional Training, Transfer training Patient agrees with the above goals and is willing to participate in the rehabilitation program: Yes Time: 3658-7302 Physical Therapy License #[id number] Physical Therapist Name: Luiza Barone, PT Physical Therapist Pager: [phone] * Kimani Rivas MD - 06/18/2025 9:59 AM EDT Images from the original note were not included. [facility] PSYCHIATRIC CONSULTATION FOLLOW-UP NOTE INTERVAL HPI: -NAEON Patient reports feeling well despite recent circumstances. Has somatic concerns regarding left leg,states that he believes it is related to neuropathy. He is looking forward to working with PT today. He acknowledges he needs to get stronger for inpatient psychiatry. He expresses a preference for [facility]. He reports still working on his poetry, actively reading, and intending to order several foreign language books. He denies any acute psychiatric concerns including dysphoric mood. Denies any active SI or paranoia. Reports he now feels a moral obligation to support TW's clinical training. REVIEW OF SYSTEMS: As per HPI EXAM: 06/18/2025 8:08 AM Vital Signs Temperature 97.7 ??F (36.5 ??C) Heart Rate 96 Respiration 18 SpO2 99 % Blood Pressure 136/72 Neurological: Motor: mild tremor appreciated left hand Cognitive: Wakefulness/alertness: awake and alert Orientation: oriented to person/place/time/situation Attention: states MOYB Memory: grossly intact Mental Status: Appearance: appears stated age, in hospital gown Behavior: good eye contact, calm, cooperative, does not appear internally preoccupied Mood: good..what other choice do I have Affect: appears euthymic, full range, stable Speech: normal rate/rhythm/tone/volume Thought process: linear, grossly organized Thought content and perceptions: denies SI/HI/AVH; no nir paranoia elicited Insight and judgment: limited/fair MEDICATIONS: Scheduled Meds:Scheduled Medications[1] Continuous Infusions:Infusions Meds[2] PRN Meds:.PRN Medications[3] DATA: Reviewed. ASSESSMENT: Carter Raymundo is a 69 y.o. male with past psych history of schizoaffective disorder on clozapine,past medical history of hypertension, CKD, oropharyngeal dysphagia c/b frequent aspiration now s/p PEG, drug-induced Parkinsonism, who presented from nursing facility with altered mental status with unresponsiveness and aphasia, now medically cleared. Psychiatry initially consulted for assistance with diagnostic clarification, with initial differential ddx of catatonia vs delirium/encephalopathy vs decompensated psychosis. On evaluation today, patient presentation significant for improved mood, social comportment. He appears euthymic, laughs appropriately, denies dysphoria and thoughts of self harm. He does not displayfrank paranoia or delusions today though endorses mildly grandiose thoughts. Cognition is grossly intact and he does not appear delirious. He is adherent to medication regimen and remains in reasonable behavioral control. Presentation stabilizing; no recent episodes of agitation and delirium appears to have resolved. Recent endorsement of SI earlier this week appears more consistent with distressintolerance than dysphoric mood with true intent. The trajectory of his clinical course remains positive. Appreciate collateral from terminal [facility]man outpatient psychologist to determine baseline personality and characterological vulnerabilities documented in progress note 06/15. Will continue to monitor tolerance and mood symptoms on current regimen and follow up lab levels of depakote, clozapine; appreciate normal bowel movements and stable Qtc. Weekly interdisciplinary meeting to discuss dispo barriers and appropriate dispo destination to be held tomorrow. Patient presentation consistent with acute psychosis in the setting of schizoaffective disorder, delirium and/or underlying neurocognitive disorder (not previously diagnosed per records). Presentation of altered mental status also similar to prior: catatonia was deemed unlikely given isolated symptom of mutism, intermittent stupor without muscle rigidity/waxy flexibility, and also the limited effect of benzodiazepines on clinical course. No structural intracranial abnormalities on imaging. Multiple EEGs demonstrate no seizure, findings more consistent with delirium but non-specific. Regardingpsychiatric symptoms, he is paranoid, endorses delusions, has endorsed SI, made verbal threats to staff, does not have known AVH. Holding bupropion, lowering Sinemet dose as able to facilitate decrease in agitation which appears primarily related to psychosis at this time. Currently on previous home clozapine dose. Brother reports at baseline patient is relatively high-functioning, pleasant, not o vertly paranoid. At this point, no concern for acute medical illness, and behavior seems primarily related to underlying schizoaffective disorder. Primary medical team has cleared patient for inpatient psychiatric bed placement. Weekly interdisciplinary meeting held 06/12 to discuss patient's recent behavior and dispo barriers.Addressing agitation and psychosis with scheduled clozapine, depakote, Haldol. For dispo, patient will need to demonstrate improvement in mobility (first actionable goal out of bed to chair), cooperation with care. HCP affirmed on 05/20 for substitute decision making. Patient on section 12 due to risk of self harm, inability to care for self and acute risk of psychiatric decompensation, bed search in progress. DSM-5 DIAGNOSIS: Delirium with mixed level of activity (resolved) Schizoaffective disorder, bipolar type R/o unspecified neurocognitive disorder RECOMMENDATIONS: #LEGAL Patient remains on section 12, cannot leave AMA, bed search in progress Continue 1:1 sitter #MANAGEMENT Note last Qtc: 485 - 06/11 [place]; consider repeat EKG q2-3 days as able for monitoring of QTc Continue delirium precautions --> Emphasize strong diurnal cues including windows open during day, limit disruptions overnight, practice avoidance of deliriogenic drugs as possible, mobilize throughout the day as possible, optimize nutrition, ensure normal regular bowel movements, and treat pain to the extent possible Clozapine dosing: c/w 25mg qAM+200mg qHS C/w valproate to 500mg PO qAM+ 500mg PO qHS F/u VPA level at trough AND free VPA level at trough (prior to administration of next dose) F/u clozapine level (note it is a send out) Please continue efforts to ensure regular bowel movements while on clozapine with consistent documentation bowel movements (last today 06/15) C/w gabapentin dose to 100 mg qAM+300mg QHS Continue to hold Wellbutrin 100 mg TID Continue ramelteon 8 mg QHS Continue trazodone 150 mg QHS Please c/w standing Haldol to 1mg PO QD + 3mg PO QHS For mild/moderate agitation, offer haloperidol 2mg PO BID PRN May give Haldol 2 mg IM PRN for refractory acute agitation, monitoring closely for EPS; may repeat same dose if no response in 30 mins; would re-engage psychiatry if requiring multiple doses Please note benzodiazepines may worsen acute delirium Psychiatry will continue to follow Kimani Rivas MD Psychiatry PGY2 Psychiatric Consultation Liaison Service If CL Psychiatry is needed, please contact [phone] for overnight or weekend psychiatric emergencies. Case discussed with attending psychiatrist Dr. Saundra Soliman. [1] acetaminophen, 1,000 mg, G-tube, TID atorvaSTATin, 20 mg, G-tube, QHS [Held by provider] buPROPion, 100 mg, G-tube, TID cloZAPine, 200 mg, G-tube, QHS cloZAPine, 25 mg, G-tube, Daily enoxaparin, 40 mg, Subcutaneous, Q24H CLAUDIA famotidine, 20 mg, G-tube, BID gabapentin, 100 mg, G-tube, QAM gabapentin, 300 mg, G-tube, QHS haloperidoL, 1 mg, G-tube, Daily And haloperidoL, 3 mg, G-tube, QHS ketoconazole, , Topical, BID lactulose, 20 g, G-tube, BID lidocaine, 1 patch, Topical, Q24H lidocaine, 1 patch, Topical, Q24H multivitamin with minerals, 15 mL, G-tube, Daily sodium chloride, 3 mL, Intravenous, Q12H CLAUDIA polyethylene glycol, 17 g, G-tube, BID ramelteon, 8 mg, G-tube, QHS sennosides, 17.6 mg, G-tube, Daily tamsulosin, 0.4 mg, G-tube, QHS traZODone, 150 mg, G-tube, Nightly valproate, 500 mg, G-tube, BID [2] [3] bisacodyl calcium carbonate dextrose oral gel OR dextrose 50% OR dextrose 50% OR glucagon (human recombinant) diclofenac sodium guaiFENesin haloperidoL iohexoL ipratropium-albuteroL Insert and Maintain Peripheral IV AND sodium chloride AND sodium chloride simethicone sodium chloride sodium chloride * Patricia Holden MD - 06/18/2025 7:36 AM EDT [facility] Medicine Progress Note Patient: Carter Raymundo ( , 1955) Admission Date: 04/15/2025 PCP: [facility] In[facility] Attending: Govind Olivo MD INTERVAL 24-hr events: - Yesterday: Calm yesterday. Some concerns in the pm that he is coughing more with thin liquids, and did better when they are thickened. - Overnight:Pt repeatedly complaining of something being wrong with his left leg and hyperfixating on c/f stroke. Neuro exam did not reveal any FND. 4-5/5 strength in b/l LE, possibly mildly weaker in L leg. 5/5 b/l RUE. Sensation decreased in b/l thighs but unclear if different between bilateral lower extremities. Given no localizing sx, deferred imaging. AM Subjective: Feeling well this morning but concerned about his leg. He feels that it is painful, specifically between the knee and ankle, but also having some hip pain. He feels like it is somewhat weaker than OBJECTIVE Vitals: T 97.5 ??F (36.4 ??C) HR (!) 110 BP 124/76 RR 16 SpO2 95 % O2 Device: None (Room air) Wt 75.8 kg (167 lb 1.7 oz) Body mass index is 23.31 kg/m??. General: NAD HEENT: anicteric sclerae, moist membranes Cardiac: RRR, no m/r/g, no JVD Pulm: CTAB, non-labored Abdomen: soft, mildly tender, especially on the left. (Passing gas/BM) Extremities: no edema, warm Neuro: symmetric face, EOMI, fluent speech, moving all limbs. Cranial nerves intact. Upper extremities intact and equal bilaterally. Able to lift both legs up off the bed, but able to lift the right leg higher than the left leg. Foot strength intact and equal bilaterally. Pain with passive lifting of left leg, experiencing pain down left leg. MSK: left leg tender/painful/sensitive to light touch on the lateral aspect of the outer thigh. Tender behind the L knee, but not markedly more so than the right, and difficult to sense if it was dueto skin sensitivity. No lower extremity edema on L or R. No new skin changes. Skin: rash and peeling skin noted on feet/ R calf. Stable. Labs and reports reviewed in the chart. Pertinent findings are noted in the A/P. ASSESSMENT/PLAN 70 y.o. male with PMHx schizoaffective disorder, drug-induced parkinsonism, CKD, and PEG dependenceadmitted with delirium on psychiatric decompensation, later COVID+ with aspiration pneumonia, now stable on RA, awaiting cheli-psych placement. ACTIVE ISSUES # Transient unresponsiveness, resolved # Acute delirium, resolved # Schizoaffective disorder # Suicidal ideation # Acute psychosis Multiple transient unresponsiveness events; stroke and seizure workup negative ([facility], MRI brain, EEG). Likely acute delirium on background of decompensated schizoaffective disorder. Psychiatry managing clozapine titration and adjuncts; haloperidol for augmentation and agitation. Meets Section 12 criteria. Week of 06/08 marked improvement in his alertness, insight, ability to communicate with the team, memory and self awareness and was able to work with PT and SOLAR DESIGN ENGINEER. However, at the same time he also began endorsing SI. On 06/12 evaluated by psychiatry and determined presentation consistent with acute psychosis in the setting of schizoaffective disorder, delirium and/or underlying neurocognitive d isorder (not previously diagnosed per records). Interdisciplinary rounds 06/12 with discussion of rehab vs psychiatric facility. Main barriers either direction will be physical strength/ ability to besomewhat independent (for a psych facility) vs his active psychosis and SI which would be hard for a rehab to manage. Ultimate decision to continue with the bed search, verify what level of independence [facility] would require for him to be eligible, and continue work with PT and psychiatric optimization. - Psych following - weekly interdisciplinary meetings - c/w clozapine 25 mg qAM + 200 mg qhs (increased) 06/13 - c/w valproate 250mg TID - Psych increased valproate to 500mg PO qAM+ 500mg PO qHS 06/11 - Standing haloperidol to 1mg qD + 3mg qHS - c/w trazodone 150 mg qhs - c/w ramelteon 8 mg qhs - HCP affirmed; cannot leave AMA - f/up VPA level and clozapine level - VA lvl 49 on 06/15 #Leg pain/weakness # History of L4-L5 laminectomy Concern overnight 06/18 for leg pain with patient c/f stroke vs DVT. Overnight exam reassuring. In the am, patient continued to feel something was off with his left leg, but described more as pain/ tingling with exam revealing skin hypersensitivity without overt signs concerning for a DVT. Differential included stroke given the weakness in the L leg compared to right with leg lift, however, given overall reassuring neurological exam and more concern for pain with sensitive skin exam unlikely a neurologic etiology. He also has chronic lower back pain and did have some pain with passive lifting of leg down the leg, c/f sciatica. - CTM - Defer imaging at this time, but if change in neurological examination will consider further workup - Plan to work with PT later today # Oropharyngeal Dysphagia with G-Tube Dependence Pulled G-tube ??2 (replaced 05/12). Variable PO tolerance; aspiration risk high. High risk of complication with aspiration/pneumonia and would recommend that he remain NPO given potential medical setback in psych placement. However, patient 06/08 with improvements in mental status, could re-consider SOLAR DESIGN ENGINEER and video swallow. Discussion with HCP that he hopes Carter will be eventually able to transition from the G tube back to PO after swallow therapy. SOLAR DESIGN ENGINEER conversation 06/11 with barium swallow - still aspirating but improvement from prior. Per SOLAR DESIGN ENGINEER on review of his long history of dysphagia and swallow studies, he will likely always be at risk for aspiration and unlikely to meet nutritional needs on a full PO diet. Reasonable for PO for pleasure, with the understanding he will always be at risk for aspirating but we can minimize risk with oral hygiene, PT and proper precautions. Discussed withHCP who is in favor of PO for pleasure as well as patient who verbalized understanding that he is still at risk for aspiration and that we know he is aspirating. Discussed with HCP that it is likely he will need to have the G tube indefinitely to meet his nutritional needs - which will warrant further discussion in the future as it may not align with the patients GOC, QOL. - FSBG been trending WNL and no longer needing ISS. Since no hx of DM we can switch to back to a standard tube feed formula. Jevity 1.5 @ 85mL/hr x 16 hrs. 06/15. - c/w overnight tube feeds; adjustments per nutrition. - Will proceed with PO for pleasure with liquid/ice cream/ pudding etc 3x daily max with oral hygiene before and after. - Noted by nursing to be coughing with thin liquids # Constipation / Diarrhea Hx severe stool burden on clozapine requiring aggressive bowel regimen; now with diarrhea intermittently. Responds well to mag citrate if refractory to other attempts. KUB 06/17 read as moderate stoolimpaction in the ascending colon, however, Carter is having Bms that are soft/somewhat formed decreasing concern for full impaction. Will CTM. - adjust bowel reg pending stool output - last BM 06/16, CTM # Tinea corporis/pedis - topical ketoconazole cream to feet/calf. Appears to have mild improvement. - If not improvement consider oral treatment, however, caution iso his mildly prolonged EKG. CHRONIC ISSUES # AHRF (resolved): i/s/o COVID/HAP s/p Remdesivir and HAP abx # Drug-induced Parkinsonism: Sinemet tapered and discontinued (05/28) # CAD: c/h atorvastatin # CKD: at baseline Cr # BPH: c/h tamsulosin # GERD: c/h famotidine CORE MEASURES - Access: PIV(s) - DVT ppx: Lovenox (patient intermittently refusing) - Code Status: Full Code - Contact/HCP: brother Delvin Raymundo [phone] - Dispo: cheli-psych placement, trial with PT -- Patricia Holden MD Resident, Internal Medicine Cosigned by Govind Olivo MD at 06/18/2025 2:57 PM EDT Associated attestation - Govind Olivo MD - 06/18/2025 2:57 PM EDT I saw and examined the patient personally today. I evaluated the available laboratory report, and imaging data; reviewed the active medication list; and assisted the resident with formulating the clinical plan on team rounds. I agree with the resident???s documented history, exam, and plan with additional comments below. 70/M with history of schizoaffective disorder c/b drug-induced parkinsonism, HTN, and oropharyngealdysphagia s/p G-tube on TF who initially presented for acute psychosis and concern for psychiatric decompensation. Course complicated by acute hypoxemic respiratory failure secondary to COVID pneumonia that is now resolved. Awaiting placement. #Acute psychosis #Schizoaffective disorder #Deconditioning -Overall improved but still requiring 1:1 sitter. Continue clozapine, depakote, haldol, trazodone, and gabapentin per Psych recs. Awaiting clozapine level. Awaiting inpatient psychiatry bed. Encourage to work for PT. #Sinus tachycardia Chronic and may be related to clozapine which has anticholinergic effect and was uptitrated. CTA chest done this admission with no PE. Continue Lovenox for DVT ppx #Abdominal distention Abdominal Xray read as possible impaction but patient having good BM daily and stool is semi-formedand not consistent with overflow diarrhea so less likely. Continue current bowel regimen. Time in care: Spent 50 minutes in patient care activities today including time with the patient at the bedside, reviewing prior medical history, reviewing clinical data, reviewing recent and new study results, clinical reasoning & decision-making, communicating with housestaff team and documentation. * Agustina Garcia LCSW - 06/17/2025 5:44 PM EDT SOCIAL WORK PROGRESS NOTE Per RN, pt requesting to speak with SW. SW meets pt at bedside to introduce self and role. 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 SW engaged in active listening and empathetic presence. Pt identifies no acute psychosocial needs. SW remains available for support. Please page with questions or concerns. Agustina Garcia LCSW [id number] * Neda Smith, PT - 06/17/2025 12:27 PM EDT PHYSICAL THERAPY PROGRESS NOTE Rehabilitation Services - Inpatient Physical Therapy Level of Care: Floor Interdisciplinary Recommendations PT Discharge rec: (Rehab) Activity and Mobility Recommendations: [x]Patient is at high risk for deconditioning. Please maximize independence in ADLs and encourage frequent mobility including: Lift for all mobility including transfers to chair 3x/day [x]Patient is at risk for pressure injury. Please limit sitting time to one hour on standard air cushion given patient???s inability to effectively reposition in chair. [x]Patient is at risk for falls. Please use chair alarm when out of bed. [x]Patient is at risk for delirium. Please consider implementing strategies to reduce risk including: OOB to chair 3 day for all meals Familiar pictures and items within view News or nonverbal music on during daytime Lights on during day with shades up Frequent reorientation to clock, calendar, and window Encourage participation with ADLs Encourage family presence at bedside *For questions please check the patient???s care team for the most updated PT contact information [x]Updated medical status including labs, radiology, procedures and medications since previous visit reviewed Subjective: I am so motivated to do PT today Patient-Stated Goal: not stated, agreeable to participate in session Objective: Hemodynamic Response/Aerobic Capacity Vital signs monitored and stable throughout session Functional Mobility Bed Mobility: Rolling: Moderate assistance Adaptive Equipment: Side rails Supine to Sit: Moderate assistance (w/increased time and effort) Adaptive Equipment: HOB elevated, Side rails Transfers: Sit to Stand: Activity does not occur Bed to chair: Total assistance Transfer aid: Mechanical lift Patient declined to participate in trial of sit to stand due to fatigue and low back pain after lower body dressing task. Gait: Ambulation Assistance: Activity does not occur Stairs: Stair Assistance: Activity does not occur Balance: Sitting - Static: Supervision, Contact guard, With bilateral upper extremity support Sitting - Dynamic: Minimal assistance (LB dressing at edge of bed) Standing - Static: Activity does not occur Standing - Dynamic: Activity does not occur Patient sat upright at edge of bed for ~6-7 minutes total. Able to perform lateral trunk leaning atedge of bed w/Samm at trunk, no overt loss of balance though increased sway. Pain: 0/10 at rest. present/10 with activity. improved/10 at recovery. Does not quantify on NPRS. Location: low back Quality: sore Intervention: repositioning and ice/hot pack provided Limiting Symptoms: Fatigue Other Tests and Measures: Cognition: Level of Consciousness: Alert Orientation Level: Oriented X4 Oriented to: Name, Date of , Month, Year, Place, Name of hospital Disoriented to: Date (off by 1, re-oriented) Following Directions: Follows one step directions without difficulty, Follows multistep directions with increased time, Follows multistep directions with repetition Success rate following directions: 75-99% of the time Patient Behaviors/Mood: Cooperative Attention to Tasks: Attends to task Insight: Impaired Intervention: Therapeutic activities Functional mobility training Balance training Energy conservation Cognitive Training Patient/Caregiver Education RE: [x]Role of PT [x]PT plan of care [x]Fall risk reduction []Discharge recommendations [x]Mobility Recommendations []Other: []Silver Solderer utilized for session Team Communication: Communicated with [x]RN []MD [x]OT dann []CM RE: Patient status []Patient discussed at interdisciplinary team rounds. Pt left seated with all needs in reach, chair alarm for safety Assessment Clinical Impression: Carter Raymundo is a 70 y.o. male with a history of schizoaffective disorder, drug-induced parkinsonism, CKD, and PEG dependence who presents to PT during hospital stay for delirium on psychiatric decompensation with course c/b COVID+ with aspiration pneumonia, now awaiting cheli-psych placement. Pt is making steady progress as demonstrated by improved participation in seated dynamic balance activities as compared to previous visit. Pt continues to function below baseline limited by the primary impairment/activity limitation of decreased activity tolerance due to pain and f atigue. Given impairments, patient would benefit from discharge to rehab once medically ready; however, current plan for IP psych. Acute PT will continue to follow to optimize independence while he remains in house. Treatment Plan: Balance training, Bed mobility, Exercise prescription, Patient / Family education, Therapeutic Activities/Functional Training, Therapeutic Exercise, Transfer training Patient agrees with the above goals and is willing to participate in the rehabilitation program: Yes Time: 2160-8573 Physical Therapist Name: Neda Smith PT, DPT Physical Therapist Pager: [phone] License #[id number] * Rachelle Condon OT - 06/17/2025 11:28 AM EDT OCCUPATIONAL THERAPY PROGRESS NOTE Rehabilitation Services - Inpatient Occupational Therapy Level of Care: Floor Interdisciplinary Recommendations OT Discharge rec: (see clinical impression) Movement Precautions: Fall risk, Suicide Activity and Mobility Recommendations: [x]Patient is at high risk for deconditioning. Please maximize independence in ADLs and encourage frequent mobility including: Lift for all mobility including transfers to chair 3x/day [x]Patient is at risk for pressure injury. Please limit sitting time to one hour on standard air cushion given patient???s inability to effectively reposition in chair. [x]Patient is at risk for falls. Please use chair alarm when out of bed. [x]Patient is at risk for delirium. Please consider implementing strategies to reduce risk including: OOB to chair 3 day for all meals Familiar pictures and items within view News or nonverbal music on during daytime Lights on during day with shades UP Frequent Reorientation to clock, calendar, and window Encourage participation with ADLs Encourage family presence at bedside *For questions please check the patient???s care team for the most updated OT contact information [x]Updated medical status including labs, radiology, procedures and medications since previous visit reviewed SUBJECTIVE: I was so looking forward to doing therapy today. I have a lot of motivation. Patient goal and desires: to end up in the chair at end of session OBJECTIVE: CLIENT FACTORS: Mental Functions: Level of Consciousness: Alert Orientation Level: Oriented X4 Oriented to: Name, Date of , Month, Year, City, Name of hospital Disoriented to: Date (states instead of , reoriented) Following Directions: Follows one step directions without difficulty Success rate following directions: 100% of the time Patient Behaviors/Mood: Cooperative Attention to Tasks: Attends to task, Attends to conversation Insight: Impaired Problem Solving: Assistance required to generate solutions, Assistance required to implement solutions Behaviors: Alert, Appropriate, Cooperative, Decreased initiation Functional Communication: Intact, Appears able to comprehend verbal/written information Communication/Social skills comments: able to express needs effectively OCCUPATIONS: Current Activities of Daily Living: Lower Body Dressing Assistance Required : Minimal assistance (don socks), able to form figure four EOB with increased time and effort, required assistance to hold LE over knee to maintain figure fourwhile donning socks. Where Assessed-Lower Body ADLs: Edge of bed Toileting Hygiene: Maximal assistance, patient required assistance to roll and maintain sidelying for bed level posterior hygiene Functional Mobility Bed Mobility: Rolling: Moderate assistance Adaptive Equipment: Side rails Supine to Sit: Moderate assistance Adaptive Equipment: HOB elevated, Side rails Transfers: Sit to Stand: Activity does not occur Bed to chair: Total assistance Gait: Ambulation Assistance: Activity does not occur Balance: Sitting - Static: Supervision, Contact guard with bilateral UE support Sitting - Dynamic: Contact guard, Minimal assistance Standing - Static: Activity does not occur Standing - Dynamic: Activity does not occur Patient able to maintain seated activity edge of bed for 6-7 minutes [x]Vital signs monitored and found to be within normal limits Pain: 0/10 at rest. present/10 with activity. improved/10 at recovery. Does not quantify Location: low back, neck Quality: sore Intervention: repositioning ice pack provided Limiting Symptoms: Pain Fatigue Additional Tests/Measures: N/A Team Communication: Communicated with [x]RN []MD [x]PT (co-treat) []CM RE: Patient status []Silver Solderer utilized for session Intervention: Patient/Caregiver Education RE: Role of OT OT plan of care Discharge recommendations ADL strategies Energy conservation Functional mobility/Functional balance training ADL/Occupation task training Activity tolerance training Pt left seated with all needs in reach, chair alarm for safety. ASSESSMENT/CLINICAL IMPRESSION: Carter Raymundo is a 70 y.o. male with a history of schizoaffectivedisorder, drug-induced parkinsonism, CKD, and PEG dependence who presents to occupational therapy during hospital stay for delirium on psychiatric decompensation with course c/b COVID+ with aspiration pneumonia, now awaiting cheli-psych placement. Pt is demonstrating improvements in occupational engagement as evidenced by increased participation in ADL routines including lower body dressing. Pt continues to present below baseline in areas specific to client factors such as activity tolerance, pain, strength, balance, and cognition impacting performance in self care routines and functional mobility. Given impairments, patient would benefit from discharge to rehab once medically ready, however, current plan for IP psych. Acute OT will continue to follow and progress per intervention plan to optimize functional independence. Treatment Plan: ADL retraining, Balance training, Bed mobility, Cognitive retraining, Energy conservation/pacing, Functional mobility training, IADL retraining, Patient/family education Patient agrees with the above goals and is willing to participate in the rehabilitation program: Yes Time: [id number] Occupational Therapist Name: Rachelle Condon OT Occupational Therapist Pager: [phone] License #: [id number] * Patricia Holden MD - 06/17/2025 7:34 AM EDT [facility] Medicine Progress Note Patient: Carter Raymundo ( , 1955) Admission Date: 04/15/2025 PCP: Kilo Baileyiams Inpatient Attending: Govind Olivo MD INTERVAL 24-hr events: - Yesterday: Did well yesterday, requesting more POs, period of agitation/paranoid yesterday. Seen by psych. - Overnight: no acute events AM Subjective: Doing well this morning. Calm. Working on a list of books that he would like acquired for him. Social work may be able to help. Still having some abdominal discomfort/gas. Simethicone is helping. Nottoo interested in trying the commode today. Nursing reports that his Bms are soft but not diarrhea. OBJECTIVE Vitals: T 97.5 ??F (36.4 ??C) HR (!) 94 BP 122/78 RR 16 SpO2 95 % O2 Device: None (Room air) Wt 75.8 kg (167 lb 1.7 oz) Body mass index is 23.31 kg/m??. General: NAD HEENT: anicteric sclerae, moist membranes Cardiac: RRR, no m/r/g, no JVD Pulm: CTAB, non-labored Abdomen: soft, mildly tender, especially on the left. (Passing gas/BM) Extremities: no edema, warm Neuro: symmetric face, EOMI, fluent speech, moving all limbs Skin: rash and peeling skin noted on feet/ R calf. Stable. Labs and reports reviewed in the chart. Pertinent findings are noted in the A/P. ASSESSMENT/PLAN 70 y.o. male with PMHx schizoaffective disorder, drug-induced parkinsonism, CKD, and PEG dependenceadmitted with delirium on psychiatric decompensation, later COVID+ with aspiration pneumonia, now stable on RA, awaiting cheli-psych placement. ACTIVE ISSUES # Transient unresponsiveness, resolved # Acute delirium, resolved # Schizoaffective disorder # Suicidal ideation # Acute psychosis Multiple transient unresponsiveness events; stroke and seizure workup negative (CTH, MRI brain, EEG). Likely acute delirium on background of decompensated schizoaffective disorder. Psychiatry managing clozapine titration and adjuncts; haloperidol for augmentation and agitation. Meets Section 12 criteria. Week of 06/08 marked improvement in his alertness, insight, ability to communicate with the team, memory and self awareness and was able to work with PT and SOLAR DESIGN ENGINEER. However, at the same time he also began endorsing SI. On 06/12 evaluated by psychiatry and determined presentation consistent with acute psychosis in the setting of schizoaffective disorder, delirium and/or underlying neurocognitive d isorder (not previously diagnosed per records). Interdisciplinary rounds 06/12 with discussion of rehab vs psychiatric facility. Main barriers either direction will be physical strength/ ability to besomewhat independent (for a psych facility) vs his active psychosis and SI which would be hard for a rehab to manage. Ultimate decision to continue with the bed search, verify what level of independence [facility] would require for him to be eligible, and continue work with PT and psychiatric optimization. - Psych following - weekly interdisciplinary meetings - c/w clozapine 25 mg qAM + 200 mg qhs (increased) 06/13 - c/w valproate 250mg TID - Psych increased valproate to 500mg PO qAM+ 500mg PO qHS 06/11 - Standing haloperidol to 1mg qD + 3mg qHS - c/w trazodone 150 mg qhs - c/w ramelteon 8 mg qhs - HCP affirmed; cannot leave AMA - f/up VPA level and clozapine level - VA lvl 49 on 06/15 # Oropharyngeal Dysphagia with G-Tube Dependence Pulled G-tube ??2 (replaced 05/12). Variable PO tolerance; aspiration risk high. High risk of complication with aspiration/pneumonia and would recommend that he remain NPO given potential medical setback in psych placement. However, patient 06/08 with improvements in mental status, could re-consider SOLAR DESIGN ENGINEER and video swallow. Discussion with HCP that he hopes Carter will be eventually able to transition from the G tube back to PO after swallow therapy. SOLAR DESIGN ENGINEER conversation 06/11 with barium swallow - still aspirating but improvement from prior. Per SOLAR DESIGN ENGINEER on review of his long history of dysphagia and swallow studies, he will likely always be at risk for aspiration and unlikely to meet nutritional needs on a full PO diet. Reasonable for PO for pleasure, with the understanding he will always be at risk for aspirating but we can minimize risk with oral hygiene, PT and proper precautions. Discussed withHCP who is in favor of PO for pleasure as well as patient who verbalized understanding that he is still at risk for aspiration and that we know he is aspirating. Discussed with HCP that it is likely he will need to have the G tube indefinitely to meet his nutritional needs - which will warrant further discussion in the future as it may not align with the patients GOC, QOL. - FSBG been trending WNL and no longer needing ISS. Since no hx of DM we can switch to back to a standard tube feed formula. Jevity 1.5 @ 85mL/hr x 16 hrs. 06/15. - c/w overnight tube feeds; adjustments per nutrition. - Will proceed with PO for pleasure with liquid/ice cream/ pudding etc 3x daily max with oral hygiene before and after. # Constipation / Diarrhea Hx severe stool burden on clozapine requiring aggressive bowel regimen; now with diarrhea intermittently. Responds well to mag citrate if refractory to other attempts. KUB 06/17 read as moderate stoolimpaction in the ascending colon, however, Carter is having Bms that are soft/somewhat formed decreasing concern for full impaction. Will CTM. - adjust bowel reg pending stool output - last BM 06/16, CTM # Tinea corporis/pedis - topical ketoconazole cream to feet/calf. Appears to have mild improvement. - If not improvement consider oral treatment, however, caution iso his mildly prolonged EKG. CHRONIC ISSUES # AHRF (resolved): i/s/o COVID/HAP s/p Remdesivir and HAP abx # Drug-induced Parkinsonism: Sinemet tapered and discontinued (05/28) # CAD: c/h atorvastatin # CKD: at baseline Cr # BPH: c/h tamsulosin # GERD: c/h famotidine CORE MEASURES - Access: PIV(s) - DVT ppx: Lovenox (patient intermittently refusing) - Code Status: Full Code - Contact/HCP: brother Delvin Raymundo [phone] - Dispo: cheli-psych placement, trial with PT -- Patricia Holden MD Resident, Internal Medicine Cosigned by Govind Olivo MD at 06/17/2025 3:30 PM EDT Associated attestation - Govind Oliov MD - 06/17/2025 3:30 PM EDT I saw and examined the patient personally today. I evaluated the available laboratory report, and imaging data; reviewed the active medication list; and assisted the resident with formulating the clinical plan on team rounds. I agree with the resident???s documented history, exam, and plan with additional comments below. 70/M with history of schizoaffective disorder c/b drug-induced parkinsonism, HTN, and oropharyngealdysphagia s/p G-tube on TF who initially presented for acute psychosis and concern for psychiatric decompensation. Course complicated by acute hypoxemic respiratory failure secondary to COVID pneumonia that is now resolved. Awaiting placement. #Acute psychosis #Schizoaffective disorder #Deconditioning -Overall improved but still requiring 1:1 sitter. Continue clozapine, depakote, haldol, trazodone, and gabapentin per Psych recs. Awaiting inpatient psychiatry bed. Encourage to work for PT. #Abdominal distention Abdominal Xray read as possible impaction but patient having good BM and stool is semi-formed and not consistent with overflow diarrhea so less likely. Continue current bowel regimen. * Chanel Cox, PT - 06/16/2025 9:30 AM EDT PHYSICAL THERAPY RE-EVALUATION Rehabilitation Services - Inpatient Physical Therapy Level of Care: Floor Interdisciplinary Recommendations PT Discharge rec: Rehab (see clinical impression for full details) Activity and Mobility Recommendations: [x]Patient is at high risk for deconditioning. Please maximize independence in ADLs and encourage frequent mobility including: Lift for all mobility including transfers to chair 3x/day vs stand pivottransfer with assist of 2 [x]Patient is at risk for pressure injury. Please limit sitting time to one hour on standard air cushion given patient???s inability to effectively reposition in chair. [x]Patient is at risk for falls. Please use chair alarm when out of bed. [x]Patient is at risk for delirium. Please consider implementing strategies to reduce risk including: OOB to chair 3 day for all meals Familiar pictures and items within view News or nonverbal music on during daytime Lights on during day with shades UP Frequent Reorientation to clock, calendar, and window Encourage participation with ADLs Encourage family presence at bedside *For questions please check the patient???s care team for the most updated PT contact information [x]HPI/Subjective Complaint, Past Medical/Surgical History, Medications, Radiology, and Labs reviewed Social History/Prior Function Home Environment Type of Home: Assisted living Home Layout: One level Home Equipment: Rollator Fall History Number of Falls (last 12 months): ( numerous ) Cause of Fall(s): Lower extremity, pain, weakness, or legs giving out Fall History Reported By: Self Prior Function Vocational Status: Retired 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 Leisure activities: reading Lives With: Alone Receives Help From: Family Mobility/ADL Assistance: Needs assistance Homemaking Assistance: Needs assistance Additional Comments: patient presents from rehab where he states he was ambulating short distances with assistance Subjective: You need to push me Patient-Stated Goal: to work on his glut strength Objective: Cognition: Level of Consciousness: Alert Orientation Level: Oriented X4 Oriented to: Name, Date of , Date, Month, Year, Name of hospital, Etiology/events Following Directions: Follows all directions without difficulty Success rate following directions: 100% of the time Patient Behaviors/Mood: Calm, Cooperative Attention to Tasks: Attends to task Safety Awareness: Full awareness of safety precautions Insight: Impaired Hemodynamic Response/Aerobic Capacity: VSS Respiratory: no cough, no FLYNN Integumentary: Skin C/D/I where visible Peripheral Edema: no edema Vascular: Extremities warm and well perfused appearing Sensory Integrity: Grossly Intact to light touch throughout Range Of Motion: Grossly WFL Muscle Performance: Grossly >/= 3/5 as observed through function Motor Function: Moves all extremities in isolation Pain: denies Functional Mobility Bed Mobility: Supine to Sit: Minimal assistance Adaptive Equipment: HOB elevated, Side rails Transfers: Sit to Stand: Minimal assistance, 2 person Stand to Sit: Minimal assistance, 2 person Transfer aid: Walker Bed to chair: Total assistance via overhead lift Therapeutic Activity: Pt received supine in bed. Able to transfer to sitting with MinAx1 and use ofbed features. Pt then participated in sit to stand training and completed x2 trials with MinAx2 andRW. Requires use of rocking strategy for momentum. Able to maintain static standing x15-20 sec eachattempt with ModA due to posterior lean. Unable to initiate pre-gait this session and high back sling placed at edge of bed and utilized overhead lift for bed to chair transfer. Balance: Sitting - Static: Supervision Sitting - Dynamic: Contact guard Standing - Static: Moderate assistance, With bilateral upper extremity support Standing - Dynamic: Activity does not occur Limiting Symptoms: Fatigue Intervention: Therapeutic activities Functional mobility training Balance training Endurance training Therapeutic exercise: seated long arc quads Patient/Caregiver Education RE: [x]Role of PT [x]PT plan of care [x]Fall risk reduction [x]Discharge recommendations [x]Mobility Recommendations []Other: []Silver Solderer utilized for session Team Communication: Communicated with [x]RN []MD []OT []CM RE: Patient status, DC recs []Patient discussed at interdisciplinary team rounds. Pt left seated with all needs in reach, chair alarm for safety Assessment Impairments of Body Functions and Structures, Activity Limitations and Participation Restrictions: Decreased strength/Muscular endurance, Altered cognition, Knowledge deficit, Altered balance Bed mobility, Transfers, Ambulation Clinical Impression/Prognosis: Carter Raymundo is a 70 y.o. male with a history of schizoaffective disorder, drug-induced parkinsonism, CKD, and PEG dependence who presents to PT during hospital stayfor delirium on psychiatric decompensation with course c/b COVID+ with aspiration pneumonia, now awaiting cheli-psych placement. Pt has met 1/4 PT goals set at initial evaluation, however, he is making gains with therapy and demonstrating improved engagement in therapy sessions. Pt remains functioning well below baseline limited by impairments in body structure and function including impaired strength, balance and activity tolerance consistent with deconditioning related to hospital course. Pt also presents with activity limitations in mobility and self-care contributing to difficulty in fulfilling societal role of independent ambulator. Given impairments, patient would benefit from discharge to rehab once medically ready, however, current plan for IP psych. Acute PT will continue to follow to optimize independence while he remains in house. He has good potential to progress to independence with ADLs and ambulation given prior level of function, age and motivation. Barriers may includecognition. Goals: Time Frame: 2 weeks - Transfer sup to sit independent - Transfer sit to stand to LRAD independent - Transfer bed to chair with LRAD independent - Ambulate at least 25' with LRAD independent Plan: Treatment/Interventions: Bed mobility, Balance training, Gait training/stairs, Patient / Family education, Therapeutic Activities/Functional Training, Therapeutic Exercise, Transfer training. Anticipated In Hospital Frequency : 1-5x/wk. Patient agrees with the above goals and is willing to participate in the rehabilitation program: Yes Time: Physical Therapist Name: Chanel Cox PT Physical Therapist Pager: [phone] PT License: [id number] * Patricia Holden MD - 06/16/2025 7:54 AM EDT [facility] Medicine Progress Note Patient: Carter Raymundo ( , 1955) Admission Date: 04/15/2025 PCP: Kilo Huynh Inpatient Attending: Govind Olivo MD INTERVAL 24-hr events: - Yesterday: Did well yesterday, requesting more POs. - Overnight: no acute events AM Subjective: Feeling well this morning, calm, working more on his writing. Still expressing interest in a psychiatric facility as his next steps. Working hard with PT and feeling good about his progress. States he has been trying to eat more - discussed with him that he is still at high risk of aspiration and would be concerned about increasing his PO. He verbalized understanding of the concern but feels thathe is doing well and the amount of concern is not warranted. He felt that being told increasing hisdiet would risky made him feel very depressed. Abdomen is a little uncomfortable but he has been having bowel movements. This PM, expressing SI, agitated (non-violent), paranoid, wanting to see psychiatry. OBJECTIVE Vitals: T 97.7 ??F (36.5 ??C) HR 90 BP 133/80 RR 17 SpO2 100 % O2 Device: None (Room air) Wt 75.8 kg (167 lb 1.7 oz) Body mass index is 23.31 kg/m??. General: NAD HEENT: anicteric sclerae, moist membranes Cardiac: RRR, no m/r/g, no JVD Pulm: CTAB, non-labored Abdomen: firm, mildly tender. (Passing gas/BM) Extremities: no edema, warm Neuro: symmetric face, EOMI, fluent speech, moving all limbs Skin: rash and peeling skin noted on feet/ R calf. Stable. Labs and reports reviewed in the chart. Pertinent findings are noted in the A/P. ASSESSMENT/PLAN 70 y.o. male with PMHx schizoaffective disorder, drug-induced parkinsonism, CKD, and PEG dependenceadmitted with delirium on psychiatric decompensation, later COVID+ with aspiration pneumonia, now stable on RA, awaiting cheli-psych placement. ACTIVE ISSUES # Transient unresponsiveness, resolved # Acute delirium, resolved # Schizoaffective disorder # Suicidal ideation # Acute psychosis Multiple transient unresponsiveness events; stroke and seizure workup negative (CTH, MRI brain, EEG). Likely acute delirium on background of decompensated schizoaffective disorder. Psychiatry managing clozapine titration and adjuncts; haloperidol for augmentation and agitation. Meets Section 12 criteria. Week of 06/08 marked improvement in his alertness, insight, ability to communicate with the team, memory and self awareness and was able to work with PT and SOLAR DESIGN ENGINEER. However, at the same time he also began endorsing SI. On 06/12 evaluated by psychiatry and determined presentation consistent with acute psychosis in the setting of schizoaffective disorder, delirium and/or underlying neurocognitive d isorder (not previously diagnosed per records). Interdisciplinary rounds 06/12 with discussion of rehab vs psychiatric facility. Main barriers either direction will be physical strength/ ability to besomewhat independent (for a psych facility) vs his active psychosis and SI which would be hard for a rehab to manage. Ultimate decision to continue with the bed search, verify what level of independence Dea 4 would require for him to be eligible, and continue work with PT and psychiatric optimization. - Psych following - weekly interdisciplinary meetings - c/w clozapine 25 mg qAM + 200 mg qhs (increased) 06/13 - c/w valproate 250mg TID - Psych increased valproate to 500mg PO qAM+ 500mg PO qHS 06/11 - Standing haloperidol to 1mg qD + 3mg qHS - c/w trazodone 150 mg qhs - c/w ramelteon 8 mg qhs - HCP affirmed; cannot leave AMA - Please obtain VPA level at trough AND free VPA level at trough (prior to administration of next dose) - Please obtain clozapine level (note it is a send out) # Oropharyngeal Dysphagia with G-Tube Dependence Pulled G-tube ??2 (replaced 05/12). Variable PO tolerance; aspiration risk high. High risk of complication with aspiration/pneumonia and would recommend that he remain NPO given potential medical setback in psych placement. However, patient 06/08 with improvements in mental status, could re-consider SOLAR DESIGN ENGINEER and video swallow. Discussion with HCP that he hopes Carter will be eventually able to transition from the G tube back to PO after swallow therapy. SOLAR DESIGN ENGINEER conversation 06/11 with barium swallow - still aspirating but improvement from prior. Per SOLAR DESIGN ENGINEER on review of his long history of dysphagia and swallow studies, he will likely always be at risk for aspiration and unlikely to meet nutritional needs on a full PO diet. Reasonable for PO for pleasure, with the understanding he will always be at risk for aspirating but we can minimize risk with oral hygiene, PT and proper precautions. Discussed withHCP who is in favor of PO for pleasure as well as patient who verbalized understanding that he is still at risk for aspiration and that we know he is aspirating. Discussed with HCP that it is likely he will need to have the G tube indefinitely to meet his nutritional needs - which will warrant further discussion in the future as it may not align with the patients GOC, QOL. - FSBG been trending WNL and no longer needing ISS. Since no hx of DM we can switch to back to a standard tube feed formula. Jevity 1.5 @ 85mL/hr x 16 hrs. 06/15. - c/w overnight tube feeds; adjustments per nutrition. - Will proceed with PO for pleasure with liquid/ice cream/ pudding etc 3x daily max with oral hygiene before and after. # Constipation / Diarrhea Hx severe stool burden on clozapine requiring aggressive bowel regimen; now with diarrhea intermittently. Responds well to mag citrate if refractory to other attempts. - adjust bowel reg pending stool output - last large BM 06/15 - Noting to be more distended yesterday 06/15 - KUB - Will reduce bowel regimen today. Adding simethicone. - Check venting (in the am) and residuals with nursing. # Tinea corporis/pedis - topical ketoconazole cream to feet/calf. Appears to have mild improvement. - If not improvement consider oral treatment, however, caution iso his mildly prolonged EKG. CHRONIC ISSUES # AHRF (resolved): i/s/o COVID/HAP s/p Remdesivir and HAP abx # Drug-induced Parkinsonism: Sinemet tapered and discontinued (05/28) # CAD: c/h atorvastatin # CKD: at baseline Cr # BPH: c/h tamsulosin # GERD: c/h famotidine CORE MEASURES - Access: PIV(s) - DVT ppx: Lovenox (patient intermittently refusing) - Code Status: Full Code - Contact/HCP: brother Delvin Raymundo [phone] - Dispo: cheli-psych placement, trial with PT -- Patricia Holden MD Resident, Internal Medicine Cosigned by Govind Olivo MD at 06/16/2025 4:28 PM EDT Associated attestation - Govind Olivo MD - 06/16/2025 4:28 PM EDT I saw and examined the patient personally today. I evaluated the available laboratory report, and imaging data; reviewed the active medication list; and assisted the resident with formulating the clinical plan on team rounds. I agree with the resident???s documented history, exam, and plan with additional comments below. 70/M with history of schizoaffective disorder c/b drug-induced parkinsonism, HTN, and oropharyngealdysphagia s/p G-tube on TF who initially presented for acute psychosis and concern for psychiatric decompensation. Course complicated by acute hypoxemic respiratory failure secondary to COVID pneumonia that is now resolved. #Acute psychosis #Schizoaffective disorder #Deconditioning -Overall improved but still requiring 1:1 sitter. Continue clozapine, depakote, haldol, trazodone, and gabapentin per Psych recs. Awaiting inpatient psychiatry bed. Encourage to work for PT. #Abdominal distention He has been having daily BMs and has good bowel sounds. Abdominal Xray done today. Does appear to have some stool burden. Continue current bowel regimen. * Demetra Hawkins, PT - 06/15/2025 12:50 PM EDT PHYSICAL THERAPY PROGRESS NOTE Rehabilitation Services - Inpatient Physical Therapy Level of Care: Floor Interdisciplinary Recommendations PT Discharge rec: (pending psych) Activity and Mobility Recommendations: [x]Patient is at high risk for deconditioning. Please maximize independence in ADLs and encourage frequent mobility including: Lift for all mobility including transfers to chair 3x/day vs assist x2 out of bed to chair with RW via stand pivot (pending fatigue/patient participation) []Patient is at risk for pressure injury. Please limit sitting time to one hour on standard air cushion given patient???s inability to effectively reposition in chair. [x]Patient is at risk for falls. Please use chair alarm when out of bed. [x]Patient is at risk for delirium. Please consider implementing strategies to reduce risk including: OOB to chair 3 day for all meals Familiar pictures and items within view News or nonverbal music on during daytime Lights on during day with shades UP Frequent Reorientation to clock, calendar, and window Encourage participation with ADLs Encourage family presence at bedside *For questions please check the patient???s care team for the most updated PT contact information [x]Updated medical status including labs, radiology, procedures and medications since previous visit reviewed Subjective: That makes sense, I need to strengthen my glutes to help me walk Patient-Stated Goal: to stand. Agreeable to PT session Objective: Hemodynamic Response/Aerobic Capacity VSS and monitored throughout session Relevant cardiac medications reviewed per ER Functional Mobility Bed Mobility: Supine to Sit: Supervision Adaptive Equipment: HOB elevated, Side rails Sit to Supine: Supervision Transfers: Sit to Stand: Moderate assistance (modA from chair, progressing to Samm from elevated bed height) Stand to Sit: Minimal assistance Transfer aid: Walker Gait Belt Used For Transfers: Yes Gait: Ambulation Assistance: Activity does not occur Balance: Sitting - Static: Supervision Sitting - Dynamic: Supervision Standing - Static: Moderate assistance Standing - Dynamic: Activity does not occur Balance Interventions: Sitting reaching activities, Standing reaching activities, Weight shifting Pain: Patient denies throughout session Limiting Symptoms: Fatigue Other Tests and Measures: Cognition: Level of Consciousness: Alert Orientation Level: Oriented X4 Oriented to: Name, Date of , Month, Date, Year, Place, Name of hospital Following Directions: Follows all directions without difficulty Success rate following directions: 100% of the time Patient Behaviors/Mood: Appropriate, Cooperative, Pleasant Memory: Intact Attention to Tasks: Attends to task, Attends to conversation Safety Awareness: Full awareness of safety precautions, Full awareness of deficits Insight: Impaired Problem Solving: Able to problem solve independently Intervention: Therapeutic activities Functional mobility training Balance training Endurance training Therapeutic exercise: seated x10 bilateral LAQ, x5 glute bridges. X5 glute sets Patient/Caregiver Education RE: [x]Role of PT [x]PT plan of care [x]Fall risk reduction [x]Discharge recommendations [x]Mobility Recommendations []Other: []Silver Solderer utilized for session Team Communication: Communicated with [x]RN [x]MD []OT [x]CM RE: Patient status [x]Patient discussed at interdisciplinary team rounds. Pt left supine with all needs in reach, bed alarm for safety Assessment Clinical Impression: Carter Raymundo is a 70 y.o. male with a history ofHTN, CKD, schizoaffective disorder, and drug-induced parkinsonism who presents to occupational therapy during hospitalization for stroke versus TME, but with unremarkable workup. Now medically stable pending inpatient psych placement for decompensated schizoaffective disorder. Pt is making steady progress as demonstrated by improved participation in therapeutic exercise as compared to previous visit. Pt continues to function below baseline limited by the primary impairment/activity limitation of impaired strength and endurance which is likely due to deconditioning is prolonged hospitalization. Patient will benefit from rehab. However, patient awaiting psych recommendations. Acute PT will continue to follow and progress mobility while in house. Treatment Plan: Bed mobility, Balance training, Gait training/stairs, Therapeutic Exercise, Therapeutic Activities/Functional Training, Transfer training Patient agrees with the above goals and is willing to participate in the rehabilitation program: Yes Time: [id number] Physical Therapist Name: DEMETRA HAWKINS PT Physical Therapist Pager: [phone] License #: [id number] * Vanessa Reyes RD - 06/15/2025 9:55 AM EDT NUTRITION FOLLOW UP NOTE SUBJECTIVE: Patient watching TV, sitter in room. Patient not participative in interview. Observed tube feeds off per order. OBJECTIVE: Height: 71 in Admit weight: 75.8 kg (bed, 04/17) Current weight: no new weights Pertinent Meds: famotidine, lactulose, liquid multivitamin with minerals, Miralax, senna. Recent Labs 06/15/25 0622 NA 142 K 4.2 CL 104 CO2 29 BUN 28* CREATININE 0.90 GLUCOSE 109* CALCIUM 8.9 MG 2.1 PHOS 3.4 Corrected Calcium: 9.78 Calculated using: - Calcium: 8.9 (06/15/2025) - Albumin: 2.9 (06/15/2025) Recent Labs 06/15/25 0622 ALT 14 AST 22 ALKPHOS 117 BILITOT 0.2 Food Allergies: NKFA Diet Order: NPO Tube Feed Order: Glucerna 1.5 Sundar @ 75 mL/hr x 16 hrs (1800 kcal, 99 g protein, 874 mL free water) With 250 mL flushes q4h (+1500 mL) Total 2374 mL free water/day Access Type: PEG Pump Recall: total 7141 mL infused x 7 days GI/Abdomen: abdomen soft, nontender. Last BM 06/13 loose Skin: no pressure injuries noted Extremities: no edema noted Nutrition Focused Physical Exam: Deferred not participative in interview ASSESSMENT: Estimated Nutrition Needs: Calories: 1262-8265 kcal (25-30 kcal/kg) Protein: 85-106 g (1.2-1.5 g/kg) Fluids: 8838-6049 mL (25-30 mL/kg) Estimated Needs Calculated Usin.9 kg (156 lb 4.9 oz) (weight at rehab) Specifics: 70 y/o M PMHx of schizoaffective disorder, drug-induced Parkinsonism, CKD, and PEG dependence admitted with delirium on psychiatric decompensation, COVID+ w/ aspiration pneumonia, now stable and awaiting cheli-psych placement. S/p barium swallow 06/11 rec's to remain NPO. Nutrition continues to follow for management of EN. Patient briefly on regular diet 06/12, then made NPO again w/ PO's for comfort per chart review. Continues w/ EN to provide 100% of est needs. Pump recall reflects patient received ~85% of prescribed feeds over the past 7d which is adequate. Of note, switched to carb controlled formula 05/27 iso FSBG >200mg/dL requiring ISS. FSBG now stabilized x ~3 weeks and ISS discontinued 06/08. FSBG last checked 06/11 and BS <140mg/dL. No hx of diabetes noted, previously receiving IV Abx which may elevated BS. Can transition back to standard, fiber containing formula as below. If FSBG begin to trend upward, switch back to carb controlled formula. No new weight taken since admit,obtain new weight in house to better assess nutritional adequacy. Lytes WNL. Interventions / Recommendations: Diet per SOLAR DESIGN ENGINEER/team EN recommendations: Switch to standard fiber-containing formula - Jevity 1.5 @ 85 mL/hr x16 hrs (provides: 2040 kcals, 87g protein & 1034 mL free water) Continue FWF as ordered - provides 2534mL free water total/day; adjust for Na/hydration prn If FSBG begin to trend upward switch back to Glucerna 1.5 Sundar @ 75 mL/hr x 16 hrs (1800 kcal, 99 g protein, 874 mL free water) Monitor lytes and replete prn Monitor BM's - adjust bowel regimen prn Obtain new weight and trend Nutrition to continue to follow, please message or page [phone] with any questions/concerns Signed by: Vanessa Reyes RD 06/15/25 9:55 AM * Demetra White RN - 06/15/2025 9:36 AM EDT Case Management - Progress Note Patient: Carter Raymundo : 1955 Attending: Govind Olivo MD Admit Date: 04/15/2025 Inpatient Status Admit Date: 04/16/25 Primary Care Physician: Kilo Huynh Discussed at [facility]. Section 12. 1:1. MANJIT: Pending IP [facility] Psych Bed: On bed search list Dispo: Inpatient psych hospital/unit CM to continue to follow. Demetra White RN 06/15/2025 * Kimani Rivas MD - 06/15/2025 9:17 AM EDT Images from the original note were not included. [facility] PSYCHIATRIC CONSULTATION FOLLOW-UP NOTE INTERVAL HPI: -NAEON -Staff reports intermittent episodes of agitation and verbal aggression OTW requiring PRN Haldol, still endorsing some grandiose thoughts Patient expresses displeasure in seeing TW this AM. He attempts to end interview prematurely. He states that TW should contact his outpatient psychologist or psychiatrist for more information. He makes a few pejorative statements. He gets agitated with minimal engagement and shouts expletives for TW to leave. Interview ended prematurely. Collateral: Dr. José Miguel Jefferson, outpatient psychologist of 45 years, per chart: [phone], per online search: [phone]. Left with callback at both numbers provided Dr. José Miguel Jefferson returned call at [phone]: Dr. Jefferson was in contact with patient last week but this morning he refused his call. He has known the patient since he was 21 years old. He has a history of several inpatient psychiatric hospitalizations but none recently, was stable for many years. 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 from cancer a couple years prior, anticipated that this would be difficult for him. 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 Recent surgical operations have led to more challenges for him andhe seems to have collapsed of late. Struggled early on with his diagnostic criteria, schizoaffective disorder fits him well after extensive follow up and testing. 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 Wonders if he might be more paranoid now as he has refused phone calls. At his baseline, would not be able to perceive he has psychiatric illness typically. REVIEW OF SYSTEMS: As per HPI EXAM: 06/15/2025 7:44 AM Vital Signs Temperature 97.7 ??F (36.5 ??C) Heart Rate 99 Respiration 17 SpO2 97 % Blood Pressure 127/78 Neurological: Motor: mild tremor appreciated left hand Cognitive: Wakefulness/alertness: awake and alert Orientation: grossly oriented to person/place/situation Attention: attentive to conversation Memory: grossly intact Mental Status: Appearance: appears stated age, in hospital gown Behavior: good eye contact, uncooperative, does not appear internally preoccupied Mood: you're a real nut Affect: irritable/anxious, constricted, stable Speech: normal rate/rhythm/tone/volume Thought process: linear, grossly organized Thought content and perceptions: does not actively endorse SI/HI/AVH; responds ask my psychiatrist in response to questions Insight and judgment: limited/fair MEDICATIONS: Scheduled Meds:Scheduled Medications[1] Continuous Infusions:Infusions Meds[2] PRN Meds:.PRN Medications[3] DATA: Reviewed. ASSESSMENT: Carter Raymundo is a 69 y.o. male with past psych history of schizoaffective disorder on clozapine,past medical history of hypertension, CKD, oropharyngeal dysphagia c/b frequent aspiration now s/p PEG, drug-induced Parkinsonism, who presented from nursing facility with altered mental status with unresponsiveness and aphasia, now medically cleared. Psychiatry initially consulted for assistance with diagnostic clarification, with initial differential ddx of catatonia vs delirium/encephalopathy vs decompensated psychosis. On evaluation today, patient presentation significant for increased irritability with intermittent episodes of agitation. Per staff report, will occasionally endorse SI at times and endorse severe anxiety; no SI endorsed today. He does not display nir paranoia or delusions today however is declining engagement in interviews or conversations with primary psychiatric team, psychologist, brother for unclear reasons. He does not appear overtly delirious though will not participate in formal cognitive exam today. He is adherent to medication regimen and remains in reasonable behavioral control though is at times verbally inappropriate to staff. Symptoms may be concerning for mixed mood episodevs emerging hypomania. Presentation continues to be relatively dynamic of late; would be more reasonable to assess the larger trajectory of his clinical course which remains generally positive. Appreciate collateral from terminal carman outpatient psychologist to determine baseline personality and characterological vulnerabilities. Will continue to monitor tolerance and mood symptoms on current dose and obtain lab levels of depakote, clozapine; appreciate normal bowel movements and stable Qtc. Patient presentation consistent with acute psychosis in the setting of schizoaffective disorder, delirium and/or underlying neurocognitive disorder (not previously diagnosed per records). Presentation of altered mental status also similar to prior: catatonia was deemed unlikely given isolated symptom of mutism, intermittent stupor without muscle rigidity/waxy flexibility, and also the limited effect of benzodiazepines on clinical course. No structural intracranial abnormalities on imaging. Multiple EEGs demonstrate no seizure, findings more consistent with delirium but non-specific. Regardingpsychiatric symptoms, he is paranoid, endorses delusions, has endorsed SI, made verbal threats to staff, does not have known AVH. Holding bupropion, lowering Sinemet dose as able to facilitate decrease in agitation which appears primarily related to psychosis at this time. Currently on previous home clozapine dose. Brother reports at baseline patient is relatively high-functioning, pleasant, not o vertly paranoid. At this point, no concern for acute medical illness, and behavior seems primarily related to underlying schizoaffective disorder. Primary medical team has cleared patient for inpatient psychiatric bed placement. Weekly interdisciplinary meeting held 06/12 to discuss patient's recent behavior and dispo barriers.Addressing agitation and psychosis with scheduled clozapine, depakote, Haldol. For dispo, patient will need to demonstrate improvement in mobility (first actionable goal out of bed to chair), cooperation with care. HCP affirmed on 05/20 for substitute decision making. Patient on section 12 due to risk of self harm, inability to care for self and acute risk of psychiatric decompensation, bed search in progress. DSM-5 DIAGNOSIS: Delirium with mixed level of activity - resolving Schizoaffective disorder, bipolar type R/o unspecified neurocognitive disorder RECOMMENDATIONS: #LEGAL Patient remains on section 12, cannot leave AMA, bed search in progress Continue 1:1 sitter #MANAGEMENT Note last Qtc: 485 - 06/11 [place]; consider repeat EKG q2-3 days as able for monitoring of QTc Continue delirium precautions --> Emphasize strong diurnal cues including windows open during day, limit disruptions overnight, practice avoidance of deliriogenic drugs as possible, mobilize throughout the day as possible, optimize nutrition, ensure normal regular bowel movements, and treat pain to the extent possible Clozapine dosing: c/w 25mg qAM+200mg qHS C/w valproate to 500mg PO qAM+ 500mg PO qHS Please obtain VPA level at trough AND free VPA level at trough (prior to administration of next dose) Please obtain clozapine level (note it is a send out) Please continue efforts to ensure regular bowel movements while on clozapine with consistent documentation bowel movements (last today 06/15) C/w gabapentin dose to 100 mg qAM+300mg QHS Continue to hold Wellbutrin 100 mg TID Continue ramelteon 8 mg QHS Continue trazodone 150 mg QHS Please c/w standing Haldol to 1mg PO QD + 3mg PO QHS For mild/moderate agitation, offer haloperidol 2mg PO BID PRN May give Haldol 2 mg IM PRN for refractory acute agitation, monitoring closely for EPS; may repeat same dose if no response in 30 mins; would re-engage psychiatry if requiring multiple doses Please note benzodiazepines may worsen acute delirium Psychiatry will continue to follow Kimani Rivas MD Psychiatry PGY2 Psychiatric Consultation Liaison Service If CL Psychiatry is needed, please contact [phone] for overnight or weekend psychiatric emergencies. Case discussed with attending psychiatrist Dr. Saundra Soliman. [1] acetaminophen, 1,000 mg, G-tube, TID atorvaSTATin, 20 mg, G-tube, QHS [Held by provider] buPROPion, 100 mg, G-tube, TID cloZAPine, 200 mg, G-tube, QHS cloZAPine, 25 mg, G-tube, Daily enoxaparin, 40 mg, Subcutaneous, Q24H CLAUDIA famotidine, 20 mg, G-tube, BID gabapentin, 100 mg, G-tube, QAM gabapentin, 300 mg, G-tube, QHS haloperidoL, 1 mg, G-tube, Daily And haloperidoL, 3 mg, G-tube, QHS ketoconazole, , Topical, BID lactulose, 20 g, G-tube, Daily lidocaine, 1 patch, Topical, Q24H lidocaine, 1 patch, Topical, Q24H multivitamin with minerals, 15 mL, G-tube, Daily sodium chloride, 3 mL, Intravenous, Q12H CLAUDIA polyethylene glycol, 17 g, G-tube, BID ramelteon, 8 mg, G-tube, QHS sennosides, 17.6 mg, G-tube, Daily tamsulosin, 0.4 mg, G-tube, QHS traZODone, 150 mg, G-tube, Nightly valproate, 500 mg, G-tube, BID [2] [3] bisacodyl calcium carbonate dextrose oral gel OR dextrose 50% OR dextrose 50% OR glucagon (human recombinant) diclofenac sodium guaiFENesin haloperidoL iohexoL ipratropium-albuteroL Insert and Maintain Peripheral IV AND sodium chloride AND sodium chloride sodium chloride sodium chloride Cosigned by Saundra Soliman MD at 06/16/2025 4:18 PM EDT Associated attestation - Saundra Soliman MD - 06/16/2025 4:18 PM EDT I saw and evaluated the patient in conjunction with resident Dr. Rivas. Dr. Rivas saw the patient on 06/15, and I saw the patient on 06/16. Total time spent was 50 minutes including chart review, interview, and care coordination. I reviewed Dr. Penaloza's note and agree with the documented findings and plan of care with the following additions/modifications: On psychiatric evaluation today, patient was initially perseverative about contacting newspaper outlets because he felt we were denying him appropriate treatment. When asked to elaborate on what treatment he felt he wasn't receiving, he was perseverative that he shouldn't have to ask multiple timesfor a psychiatrist to see him before a psychiatrist shows up. He was reassured to see me, and when I told him that I felt that his medical team was doing the best they can and working hard to provideexcellent care to all their patients including him, he said he could agree a little since I was talking to him. 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 Denied any wishes, SI/HI, and AH/VH. Non-pressured speech.No acute thought or behavioral disorganization. No excessive psychomotor activity or agitation. Cognitively, oriented to person, [facility], [place], June 14, Sunday, 2024, and superficially to situation; attentive to interview and could do MOYB; 3/3 delayed recall without cues; and could do verbal trails until 8-H. On motor exam, mild postural left hand tremor but no rigidity. Overall, ongoing improving cognitive function consistent with resolving delirium and active paranoia and grandiosity concerning for decompensation of underlying schizoaffective disorder bipolar type. Appreciate SW involvement to provide patient additional support and help with coping this admission. Patient also asking to speak with SW. Remainder of recommendations per resident note below. Saundra Soliman MD Instruction Dean, [facility] Psychiatric Consultation-Liaison Service Pager [phone] ([phone] for urgent questions and on nights/weekends/holidays) * Patricia Holden MD - 06/15/2025 7:25 AM EDT [facility] Medicine Progress Note Patient: Carter Raymundo ( , 1955) Admission Date: 04/15/2025 PCP: Kilo Huynh Inpatient Attending: Govind Olivo MD INTERVAL 24-hr events: - Yesterday: No major changes, noted to be agitated/ aggressive by nursing. - Overnight: no acute events AM Subjective: Doing well this morning. Not referencing feeling suicidal. Had some bowel pain yesterday, but was able to have multiple bowel movements this morning. Has not yet been able to try the commode. Statingtoday that he would be very interested in going to [facility]. De-escalated labs today. OBJECTIVE Vitals: T 97.6 ??F (36.4 ??C) HR (!) 93 BP 130/84 RR 17 SpO2 98 % O2 Device: None (Room air) Wt 75.8 kg (167 lb 1.7 oz) Body mass index is 23.31 kg/m??. General: NAD HEENT: anicteric sclerae, moist membranes Cardiac: RRR, no m/r/g, no JVD Pulm: CTAB, non-labored Abdomen: soft, NTND. Extremities: no edema, warm Neuro: symmetric face, EOMI, fluent speech, moving all limbs Skin: rash and peeling skin noted on feet/ R calf. Stable. Labs and reports reviewed in the chart. Pertinent findings are noted in the A/P. ASSESSMENT/PLAN 70 y.o. male with PMHx schizoaffective disorder, drug-induced parkinsonism, CKD, and PEG dependenceadmitted with delirium on psychiatric decompensation, later COVID+ with aspiration pneumonia, now stable on RA, awaiting cheli-psych placement. ACTIVE ISSUES # Transient unresponsiveness, resolved # Acute delirium, resolved # Schizoaffective disorder # Suicidal ideation # Acute psychosis Multiple transient unresponsiveness events; stroke and seizure workup negative (CTH, MRI brain, EEG). Likely acute delirium on background of decompensated schizoaffective disorder. Psychiatry managing clozapine titration and adjuncts; haloperidol for augmentation and agitation. Meets Section 12 criteria. Week of 06/08 marked improvement in his alertness, insight, ability to communicate with the team, memory and self awareness and was able to work with PT and SOLAR DESIGN ENGINEER. However, at the same time he also began endorsing SI. On 06/12 evaluated by psychiatry and determined presentation consistent with acute psychosis in the setting of schizoaffective disorder, delirium and/or underlying neurocognitive d isorder (not previously diagnosed per records). Interdisciplinary rounds 06/12 with discussion of rehab vs psychiatric facility. Main barriers either direction will be physical strength/ ability to besomewhat independent (for a psych facility) vs his active psychosis and SI which would be hard for a rehab to manage. Ultimate decision to continue with the bed search, verify what level of independence Dea 4 would require for him to be eligible, and continue work with PT and psychiatric optimization. - Psych following - weekly interdisciplinary meetings - c/w clozapine 25 mg qAM + 200 mg qhs (increased) 06/13 - c/w valproate 250mg TID - Psych increased valproate to 500mg PO qAM+ 500mg PO qHS 06/11 - Standing haloperidol to 1mg qD + 3mg qHS - c/w trazodone 150 mg qhs - c/w ramelteon 8 mg qhs - HCP affirmed; cannot leave AMA # Oropharyngeal Dysphagia with G-Tube Dependence Pulled G-tube ??2 (replaced 05/12). Variable PO tolerance; aspiration risk high. High risk of complication with aspiration/pneumonia and would recommend that he remain NPO given potential medical setback in psych placement. However, patient 06/08 with improvements in mental status, could re-consider SOLAR DESIGN ENGINEER and video swallow. Discussion with HCP that he hopes Carter will be eventually able to transition from the G tube back to PO after swallow therapy. SOLAR DESIGN ENGINEER conversation 06/11 with barium swallow - still aspirating but improvement from prior. Per SOLAR DESIGN ENGINEER on review of his long history of dysphagia and swallow studies, he will likely always be at risk for aspiration and unlikely to meet nutritional needs on a full PO diet. Reasonable for PO for pleasure, with the understanding he will always be at risk for aspirating but we can minimize risk with oral hygiene, PT and proper precautions. Discussed withHCP who is in favor of PO for pleasure as well as patient who verbalized understanding that he is still at risk for aspiration and that we know he is aspirating. Discussed with HCP that it is likely he will need to have the G tube indefinitely to meet his nutritional needs - which will warrant further discussion in the future as it may not align with the patients GOC, QOL. - FSBG been trending WNL and no longer needing ISS. Since no hx of DM we can switch to back to a standard tube feed formula. Jevity 1.5 @ 85mL/hr x 16 hrs. 06/15. - c/w overnight tube feeds; adjustments per nutrition. - Will proceed with PO for pleasure with liquid/ice cream/ pudding etc 3x daily max with oral hygiene before and after. # Constipation / Diarrhea Hx severe stool burden on clozapine requiring aggressive bowel regimen; now with diarrhea intermittently. Responds well to mag citrate if refractory to other attempts. - adjust bowel reg pending stool output - last large BM 06/15 # Tinea corporis/pedis - topical ketoconazole cream to feet/calf. Appears to have mild improvement. - If not improvement consider oral treatment, however, caution iso his mildly prolonged EKG. CHRONIC ISSUES # AHRF (resolved): i/s/o COVID/HAP s/p Remdesivir and HAP abx # Drug-induced Parkinsonism: Sinemet tapered and discontinued (05/28) # CAD: c/h atorvastatin # CKD: at baseline Cr # BPH: c/h tamsulosin # GERD: c/h famotidine CORE MEASURES - Access: PIV(s) - DVT ppx: Lovenox (patient intermittently refusing) - Code Status: Full Code - Contact/HCP: brother Delvin Raymundo [phone] - Dispo: cheli-psych placement, trial with PT -- Patricia Holden MD Resident, Internal Medicine Cosigned by Govind Olivo MD at 06/15/2025 3:00 PM EDT Associated attestation - Govind Olivo MD - 06/15/2025 3:00 PM EDT I saw and examined the patient personally today. I evaluated the available laboratory report, and imaging data; reviewed the active medication list; and assisted the resident with formulating the clinical plan on team rounds. I agree with the resident???s documented history, exam, and plan with additional comments below. 70/M with history of schizoaffective disorder c/b drug-induced parkinsonism, HTN, and oropharyngealdysphagia s/p G-tube on TF who initially presented for acute psychosis and concern for psychiatric decompensation. Course complicated by acute hypoxemic respiratory failure secondary to COVID pneumonia that is now resolved. #Acute psychosis #Schizoaffective disorder #Deconditioning -Overall improved but still requiring 1:1 sitter. Continue clozapine, depakote, haldol, trazodone, and gabapentin per Psych recs. Awaiting inpatient psychiatry bed. Continue PT. Time in care: Spent 50 minutes in patient care activities today including time with the patient at the bedside, reviewing prior medical history, reviewing clinical data, reviewing recent and new study results, clinical reasoning & decision-making, communicating with housestaff team and documentation. * Ammon Low MD PhD - 06/14/2025 5:57 AM EDT [facility] Medicine Progress Note Patient: Carter Raymundo ( , 1955) Admission Date: 04/15/2025 PCP: Kilo Huynh Inpatient Attending: Feliciano Choi MD INTERVAL 24-hr events: - Yesterday: Psych increased Clozapine to 225 daily. Doing well with PO intake. Mobility ongoing. - Overnight: no acute events AM Subjective: Patient did not want to talk this morning. OBJECTIVE Vitals: T 98 ??F (36.7 ??C) HR (!) 93 BP 132/85 RR 18 SpO2 98 % O2 Device: None (Room air) Wt 75.8 kg (167 lb 1.7 oz) Body mass index is 23.31 kg/m??. General: NAD HEENT: anicteric sclerae, moist membranes Cardiac: RRR, no m/r/g, no JVD Pulm: CTAB, non-labored Abdomen: soft, NTND Extremities: no edema, warm Neuro: symmetric face, EOMI, fluent speech, moving all limbs Skin: rash and peeling skin noted on feet/ R calf. Stable. Labs and reports reviewed in the chart. Pertinent findings are noted in the A/P. ASSESSMENT/PLAN 70 y.o. male with PMHx schizoaffective disorder, drug-induced parkinsonism, CKD, and PEG dependenceadmitted with delirium on psychiatric decompensation, later COVID+ with aspiration pneumonia, now stable on RA, awaiting cheli-psych placement. ACTIVE ISSUES # Transient unresponsiveness, resolved # Acute delirium, resolved # Schizoaffective disorder # Suicidal ideation # Acute psychosis Multiple transient unresponsiveness events; stroke and seizure workup negative (CTH, MRI brain, EEG). Likely acute delirium on background of decompensated schizoaffective disorder. Psychiatry managing clozapine titration and adjuncts; haloperidol for augmentation and agitation. Meets Section 12 criteria. He has not had any periods of minimal responsiveness to stimulation, but has significantly improved. He is now endorsing SI, which is monitored by psych. On 06/12 evaluated by psychiatry and determined presentation consistent with acute psychosis in the setting of schizoaffective disorder, delirium and/or underlying neurocognitive disorder (not previously diagnosed per records). Interdiscipli nary rounds yesterday with discussion of rehab vs psychiatric facility. Main barriers either direction will be physical strength/ ability to be somewhat independent (for a psych facility) vs his active psychosis and SI which would be hard for a rehab to manage. Ultimate decision to continue with the bed search, verify what level of independence Dea 4 would require for him to be eligible, and continue work with PT and psychiatric optimization. - Psych following - weekly interdisciplinary meetings - c/w clozapine 25 mg qAM + 200 mg qhs (increased) 06/13 - c/w valproate 250mg TID - Psych increased valproate to 500mg PO qAM+ 500mg PO qHS 06/11 - Standing haloperidol to 1mg qD + 3mg qHS - c/w trazodone 150 mg qhs - c/w ramelteon 8 mg qhs - HCP affirmed; cannot leave AMA # Oropharyngeal Dysphagia with G-Tube Dependence Pulled G-tube ??2 (replaced 05/12). Variable PO tolerance; aspiration risk high. High risk of complication with aspiration/pneumonia and would recommend that he remain NPO given potential medical setback in psych placement. However, patient 06/08 with improvements in mental status, could re-consider SOLAR DESIGN ENGINEER and video swallow. Discussion with HCP that he hopes Carter will be eventually able to transition from the G tube back to PO after swallow therapy. SOLAR DESIGN ENGINEER conversation 06/11 - still aspirating but improvement from prior. Will always be at risk for aspiration and unlikely to meet nutritional needs jovan full PO diet. Per SOLAR DESIGN ENGINEER, reasonable for PO for pleasure, with the understanding he will always be at risk for aspirating but we can minimize risk with oral hygiene, PT and proper precautions. Discussed with HCP who is in favor of PO for pleasure as well as patient who verbalized understanding that he is still at risk for aspiration and that we know he is aspirating. Discussed with HCP that it is likely he will need to have the G tube indefinitely to meet his nutritional needs - which will warrant further discussion in the future as it may not align with the patients GOC, QOL. - c/w overnight tube feeds; adjustments per nutrition. - Will proceed with PO for pleasure with liquid/ice cream/ pudding etc 3x daily max with oral hygiene before and after. - SOLAR DESIGN ENGINEER modified barium swallow 06/11. # Constipation / Diarrhea Hx severe stool burden on clozapine requiring aggressive bowel regimen; now with diarrhea intermittently. Responds well to mag citrate if refractory to other attempts. - adjust bowel reg pending stool output - last large BM 06/13 # Tinea corporis/pedis - topical ketoconazole cream to feet/calf. Appears to have mild improvement. - If not improvement consider oral treatment, however, caution iso his mildly prolonged EKG. CHRONIC ISSUES # AHRF (resolved): i/s/o COVID/HAP s/p Remdesivir and HAP abx # Drug-induced Parkinsonism: Sinemet tapered and discontinued (05/28) # CAD: c/h atorvastatin # CKD: at baseline Cr # BPH: c/h tamsulosin # GERD: c/h famotidine CORE MEASURES - Access: PIV(s) - DVT ppx: Lovenox (patient intermittently refusing) - Code Status: Full Code - Contact/HCP: brother Delvin Raymundo [phone] - Dispo: cheli-psych placement, trial with PT -- Ammon Low MD PhD Resident, Internal Medicine Cosigned by Feliciano Choi MD at 06/14/2025 4:05 PM EDT Associated attestation - Feliciano Choi MD - 06/14/2025 4:05 PM EDT I have seen and examined Mr. Raymundo, reviewed the findings and plan of care as documented by Ammon Low MD PhD and agree, except for any additional comments below. 70M with a history of schizoaffective disorder c/b drug-induced parkinsonism, HTN, and oropharyngeal dysphagia s/p G-tube on TF who presented to [facility] on 04/15 with unresponsiveness, aphasia, and concern for L facial droop (stroke workup negative) c/f psychiatric decompensation. Course complicated by acute hypoxic respiratory failure 2/2 COVID pneumonia s/p remdesivir and dexamethasone, likely multifocal aspiration pneumonia, and severe mucous plugging (all resolved), and ongoing deconditioning. #Acute psychosis #Schizoaffective disorder A little more distraught today, attributes this to having a difficult time making myself understood , wishes he could do PT on the weekend but understanding of limitation. Denies SI today, mental status exam somewhat improved (thought process more organized and goal-directed), though still with evidence of hypomania, somatization, emotional lability. HCP affirmed 05/20 for surrogate decision-making, psychiatry following for medication management with clozapine (increased on 06/10), depakote (increased on 06/11), haldol, trazodone, and gabapentin. S12, 1:1 sitter. Ultimate plan for inpatient psychiatry placement. #Deconditioning: currently has rehab-level needs, but psychiatric hospitalization remains the priority. Making slow steady progress with near- daily PT sessions #Drug induced parkinsonism: sinemet #Dysphagia s/p PEG: TF; so far tolerating PO trials, continuing trials of snacks 3x a day for comfort based on GOC with patient and HCP I spent 25 minutes in this clinical encounter reviewing the medical record, seeing and examining the patient, placing orders, writing notes, performing signout, and communicating with the applicable medical and nursing teams. Feliciano Choi MD Section of Hospital Medicine [facility] * Patricia Holden MD - 06/13/2025 4:14 PM EDT [facility] Medicine Progress Note Patient: Carter Raymundo ( , 1955) Admission Date: 04/15/2025 PCP: Kilo Huynh Inpatient Attending: Feliciano Choi MD INTERVAL 24-hr events: Did well overnight Clozapine increased by psych yesterday Interdisciplinary rounds yesterday with discussion of rehab vs psychiatric facility. Main barriers either direction will be physical strength/ ability to be somewhat independent (for a psych facility) vs his active psychosis and SI which would be hard for a rehab to manage. Ultimate decision to continue with the bed search, verify what level of independence Deac 4 would require for him to be eligible, and continue work with PT and psychiatric optimization. AM Subjective: Doing well this morning, but feeling tired and slow /weak. Stating he is in the best shape of hislife and that he looks 37 . Wanting to try to use the comode for Bms. OBJECTIVE Vitals: T 98.4 ??F (36.9 ??C) HR (!) 97 BP (!) 140/92 RR 18 SpO2 94 % O2 Device: None (Room air) Wt 75.8 kg (167 lb 1.7 oz) Body mass index is 23.31 kg/m??. General: NAD HEENT: anicteric sclerae, moist membranes Cardiac: RRR, no m/r/g, no JVD Pulm: CTAB, non-labored Abdomen: soft, NTND Extremities: no edema, warm Neuro: symmetric face, EOMI, fluent speech, moving all limbs Skin: rash and peeling skin noted on feet/ R calf. Stable. Labs and reports reviewed in the chart. Pertinent findings are noted in the A/P. ASSESSMENT/PLAN 70 y.o. male with PMHx schizoaffective disorder, drug-induced parkinsonism, CKD, and PEG dependenceadmitted with delirium on psychiatric decompensation, later COVID+ with aspiration pneumonia, now stable on RA, awaiting cheli-psych placement. ACTIVE ISSUES # Transient unresponsiveness, resolved # Acute delirium, resolved # Schizoaffective disorder # Suicidal ideation # Acute psychosis Multiple transient unresponsiveness events; stroke and seizure workup negative (CTH, MRI brain, EEG). Likely acute delirium on background of decompensated schizoaffective disorder. Psychiatry managing clozapine titration and adjuncts; haloperidol for augmentation and agitation. Meets Section 12 criteria. He has not had any periods of minimal responsiveness to stimulation, but has significantly improved. He is now endorsing SI, which is monitored by psych. On 06/12 evaluated by psychiatry and determined presentation consistent with acute psychosis in the setting of schizoaffective disorder, delirium and/or underlying neurocognitive disorder (not previously diagnosed per records). Interdiscipli nary rounds yesterday with discussion of rehab vs psychiatric facility. Main barriers either direction will be physical strength/ ability to be somewhat independent (for a psych facility) vs his active psychosis and SI which would be hard for a rehab to manage. Ultimate decision to continue with the bed search, verify what level of independence Dea 4 would require for him to be eligible, and continue work with PT and psychiatric optimization. - Psych following - weekly interdisciplinary meetings - c/w clozapine 25 mg qAM + 200 mg qhs (increased) 06/13 - c/w valproate 250mg TID - Psych increased valproate to 500mg PO qAM+ 500mg PO qHS 06/11 - Standing haloperidol to 1mg qD + 3mg qHS - c/w trazodone 150 mg qhs - c/w ramelteon 8 mg qhs - HCP affirmed; cannot leave AMA # Oropharyngeal Dysphagia with G-Tube Dependence Pulled G-tube ??2 (replaced 05/12). Variable PO tolerance; aspiration risk high. High risk of complication with aspiration/pneumonia and would recommend that he remain NPO given potential medical setback in psych placement. However, patient 06/08 with improvements in mental status, could re-consider SOLAR DESIGN ENGINEER and video swallow. Discussion with HCP that he hopes Carter will be eventually able to transition from the G tube back to PO after swallow therapy. SOLAR DESIGN ENGINEER conversation 06/11 - still aspirating but improvement from prior. Will always be at risk for aspiration and unlikely to meet nutritional needs jovan full PO diet. Per SOLAR DESIGN ENGINEER, reasonable for PO for pleasure, with the understanding he will always be at risk for aspirating but we can minimize risk with oral hygiene, PT and proper precautions. Discussed with HCP who is in favor of PO for pleasure as well as patient who verbalized understanding that he is still at risk for aspiration and that we know he is aspirating. Discussed with HCP that it is likely he will need to have the G tube indefinitely to meet his nutritional needs - which will warrant further discussion in the future as it may not align with the patients GOC, QOL. - c/w overnight tube feeds; adjustments per nutrition. - Will proceed with PO for pleasure with liquid/ice cream/ pudding etc 3x daily max with oral hygiene before and after. - SOLAR DESIGN ENGINEER modified barium swallow 06/11. # Constipation / Diarrhea Hx severe stool burden on clozapine requiring aggressive bowel regimen; now with diarrhea intermittently. Responds well to mag citrate if refractory to other attempts. - adjust bowel reg pending stool output - last large BM 06/13 # Tinea corporis/pedis - topical ketoconazole cream to feet/calf. Appears to have mild improvement. - If not improvement consider oral treatment, however, caution iso his mildly prolonged EKG. CHRONIC ISSUES # AHRF (resolved): i/s/o COVID/HAP s/p Remdesivir and HAP abx # Drug-induced Parkinsonism: Sinemet tapered and discontinued (05/28) # CAD: c/h atorvastatin # CKD: at baseline Cr # BPH: c/h tamsulosin # GERD: c/h famotidine CORE MEASURES - Access: PIV(s) - DVT ppx: Lovenox (patient intermittently refusing) - Code Status: Full Code - Contact/HCP: brother Delvin Raymundo [phone] - Dispo: cheli-psych placement, trial with PT -- Patricia Holden MD Resident, Internal Medicine Cosigned by Feliciano Choi MD at 06/13/2025 7:26 PM EDT Associated attestation - Feliciano Choi MD - 06/13/2025 7:26 PM EDT I have seen and examined Mr. Raymundo, reviewed the findings and plan of care as documented by Patricia Holden MD and agree, except for any additional comments below. 70M with a history of schizoaffective disorder c/b drug-induced parkinsonism, HTN, and oropharyngeal dysphagia s/p G-tube on TF who presented to [facility] on 04/15 with unresponsiveness, aphasia, and concern for L facial droop (stroke workup negative) c/f psychiatric decompensation. Course complicated by acute hypoxic respiratory failure 2/2 COVID pneumonia s/p remdesivir and dexamethasone, likely multifocal aspiration pneumonia, and severe mucous plugging (all resolved), and ongoing deconditioning. #Acute psychosis #Schizoaffective disorder Denies SI today, mental status exam somewhat improved (thought process more organized and goal-directed), though still with evidence of hypomania ( I'm in the best shape of my life ) and somatization(feels the chocolate ice cream nearly killed him). HCP affirmed 05/20 for surrogate decision-making,psychiatry following for medication management with clozapine (increased on 06/10), depakote (increased on 06/11), haldol, trazodone, and gabapentin. S12, 1:1 sitter. Ultimate plan for inpatient psychiatry placement. #Deconditioning: currently has rehab-level needs, but psychiatric hospitalization remains the priority. Making slow steady progress with near- daily PT sessions #Drug induced parkinsonism: sinemet #Dysphagia s/p PEG: TF; tolerating PO trials, ok to continue trials of snacks 3x a day for comfort based on GOC with patient and HCP I spent 35 minutes in this clinical encounter reviewing the medical record, seeing and examining the patient, placing orders, writing notes, performing signout, and communicating with the applicable medical and nursing teams. Feliciano Choi MD Section of Hospital Medicine [facility] * Demetra Hawkins, PT - 06/12/2025 5:18 PM EDT PHYSICAL THERAPY PROGRESS NOTE Rehabilitation Services - Inpatient Physical Therapy Level of Care: Floor Interdisciplinary Recommendations PT Discharge rec: (pending psych) Activity and Mobility Recommendations: [x]Patient is at high risk for deconditioning. Please maximize independence in ADLs and encourage frequent mobility including: Lift for all mobility including transfers to chair 3x/day vs assist x2 out of bed to chair with RW via stand pivot (pending fatigue/patient participation) []Patient is at risk for pressure injury. Please limit sitting time to one hour on standard air cushion given patient???s inability to effectively reposition in chair. [x]Patient is at risk for falls. Please use chair alarm when out of bed. [x]Patient is at risk for delirium. Please consider implementing strategies to reduce risk including: OOB to chair 3 day for all meals Familiar pictures and items within view News or nonverbal music on during daytime Lights on during day with shades UP Frequent Reorientation to clock, calendar, and window Encourage participation with ADLs Encourage family presence at bedside *For questions please check the patient???s care team for the most updated PT contact information [x]Updated medical status including labs, radiology, procedures and medications since previous visit reviewed Subjective: I bet I surprised you today Patient-Stated Goal: to walk. Agreeable to PT session Objective: Hemodynamic Response/Aerobic Capacity VSS and monitored throughout session Relevant cardiac medications reviewed per EMR Functional Mobility Bed Mobility: Supine to Sit: Minimal assistance, Moderate assistance ( initially Samm, modA 2nd attempt 2/2 poor sequencig (feet by head of bed)) Adaptive Equipment: Side rails Sit to Supine: Contact guard Adaptive Equipment: (HOB flat) Transfers: Sit to Stand: Maximal assistance, Moderate assistance, 2 person (MaxAx2 progressing to ModAx2) Stand to Sit: Minimal assistance Bed to chair: Moderate assistance, 2 person (via stand step) Transfer aid: Walker Gait Belt Used For Transfers: Yes Balance: Sitting - Static: Supervision Sitting - Dynamic: Supervision Standing - Static: Moderate assistance, Minimal assistance, With assistive device (ModAx2 w/BORING MACHINE OPERATOR HORIZONTAL progressing to Mod+Min w.RW progressing to ModA w/RW) Standing - Dynamic: Moderate assistance (patient completing standing marches with notable trunk retropulsion and increased knee flexion) Balance Interventions: Sitting reaching activities Pain: Patient reports chronic lower back pain which does not worsen with activity Intervention: repositioning Limiting Symptoms: Fatigue Other Tests and Measures: Cognition: Level of Consciousness: Alert Orientation Level: Oriented X4 Oriented to: Name, Date of , Month, Year, Place, Name of hospital Disoriented to: Date (states 25th, abkle to state 22 w/cues) Following Directions: Follows all directions without difficulty Success rate following directions: 100% of the time Patient Behaviors/Mood: Appropriate, Calm, Cooperative, Good Eye Contact, Flat affect, Brightens with approach, Pleasant. Rates mood 8/10 (1 being severely depressed, 10 being euphoria) Memory: Intact Attention to Tasks: Attends to tasks with cues, Attends to conversation Safety Awareness: Decreased awareness of need for assistance, Decreased awareness of safety precautions, Decreased awareness of errors, Decreased awareness of deficits Insight: Impaired Problem Solving: Assistance required to identify errors made, Assistance required to generate solutions, Assistance required to implement solutions Behaviors: Alert, Appropriate, Cooperative, Decreased initiation (grandiose delusions, somewhat oddly related; redirectable) Aphasia: None present Functional Communication: Intact, Appears able to comprehend verbal/written information Intervention: Therapeutic activities Functional mobility training Balance training Endurance training Energy conservation Patient/Caregiver Education RE: [x]Role of PT [x]PT plan of care [x]Fall risk reduction [x]Discharge recommendations [x]Mobility Recommendations []Other: []Silver Solderer utilized for session Team Communication: Communicated with [x]RN [x]MD [x]OT [x]CM RE: Patient status [x]Patient discussed at interdisciplinary team rounds. Pt left seated with all needs in reach, 1:1 sitter at bedside Assessment Clinical Impression: Carter Raymundo is a 70 y.o. male with a history of HTN, CKD, schizoaffective disorder, and drug-induced parkinsonism who presents to occupational therapy during hospitalization for stroke versus TME, but with unremarkable workup. Now medically stable pending inpatient psych placement for decompensated schizoaffective disorder. Pt is making steady progress as demonstrated by improved participation in functional mobility as compared to previous visit. Pt continues to function below baseline limited by the primary impairment/activity limitation of impaired strength, dynamicbalance and functional mobility which is likely due to deconditioning iso prolonged hospitalization. Patient will benefit from rehab. However, patient awaiting psych recommendations. Acute PT will continue to follow and progress mobility while in house. Treatment Plan: Balance training, Bed mobility, Gait training/stairs, Therapeutic Activities/Functional Training, Therapeutic Exercise, Transfer training Patient agrees with the above goals and is willing to participate in the rehabilitation program: Yes Time: [id number] Physical Therapist Name: DEMETRA HAWKINS PT Physical Therapist Pager: [phone] License #: [id number] * Payton Cramer, OT - 06/12/2025 4:47 PM EDT OCCUPATIONAL THERAPY INITIAL EVALUATION Rehabilitation Services - Inpatient OccupationalTherapy Level of Care: Floor Interdisciplinary Recommendations OT Discharge rec: (see clinical impression) Movement Precautions: Fall risk, Suicide WB Status: Activity and Mobility Recommendations: [x]Patient is at high risk for deconditioning. Please maximize independence in ADLs and encourage frequent mobility including: Assist of x2 for out of bed to chair with RW via stand pivot 3x/day Lift for all mobility including transfers to chair 3x/day []Patient is at risk for pressure injury. Please limit sitting time to one hour on standard air cushion given patient???s inability to effectively reposition in chair. [x]Patient is at risk for falls. Please use chair alarm when out of bed. [x]Patient is at risk for delirium. Please consider implementing strategies to reduce risk including: OOB to chair 3 day for all meals Familiar pictures and items within view News or nonverbal music on during daytime Lights on during day with shades UP Frequent Reorientation to clock, calendar, and window Encourage participation with ADLs Encourage family presence at bedside *For questions please check the patient???s care team for the most updated OT contact information OCCUPATIONAL PROFILE: [x]HPI/Subjective Complaint, Past Medical/Surgical History, Medications, Radiology, and Labs reviewed *information obtained via chart review, confirm w/pt this date as indicated* Social History/Prior Function Home Environment Type of Home: Assisted living Home Layout: One level Home Equipment: Rollator Fall History Number of Falls (last 12 months): ( numerous ) Cause of Fall(s): Lower extremity, pain, weakness, or legs giving out Fall History Reported By: Self Prior Function Vocational Status: Retired 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 Leisure activities: reading, writing poetry Lives With: Alone Receives Help From: Family Mobility/ADL Assistance: Needs assistance Homemaking Assistance: Needs assistance Additional Comments: patient presents from rehab where he states he was ambulating short distances with assistance OBJECTIVE TESTS / CLIENT FACTORS Level of Consciousness: Alert Orientation Level: Oriented X4 Oriented to: Name, Date of , Month, Year, Place, Name of hospital Disoriented to: Date (states 25th, abkle to state 22 w/cues) Following Directions: Follows all directions without difficulty Success rate following directions: 100% of the time Patient Behaviors/Mood: Appropriate, Calm, Cooperative, Good Eye Contact, Flat affect, Brightens with approach, Pleasant. Rates mood 8/10 (1 being severely depressed, 10 being euphoria) Memory: Intact Attention to Tasks: Attends to tasks with cues, Attends to conversation Safety Awareness: Decreased awareness of need for assistance, Decreased awareness of safety precautions, Decreased awareness of errors, Decreased awareness of deficits Insight: Impaired Problem Solving: Assistance required to identify errors made, Assistance required to generate solutions, Assistance required to implement solutions Behaviors: Alert, Appropriate, Cooperative, Decreased initiation (grandiose delusions, somewhat oddly related; redirectable) Aphasia: None present Functional Communication: Intact, Appears able to comprehend verbal/written information OCCUPATIONS: Current Activities of Daily Living: Upper Body Dressing Assistance Required: Minimal assistance (tie gown) Where Assessed-Upper Body ADLs: Edge of bed ADL Comments: grossly impaired 2/2 current mental status, fatigue, cognition Functional Mobility Bed Mobility: Supine to Sit: Minimal assistance, Moderate assistance (x2, Samm, modA 2nd attempt 2/2 poor sequencig (feet by head of bed)) Adaptive Equipment: Side rails Sit to Supine: Contact guard Adaptive Equipment: (HOB flat) Bed Moblity Barriers: Cognition Bed Mobility Interventions: Task specific training Transfers: Sit to Stand: Maximal assistance, Moderate assistance, 2 person (MaxAx2 progressing to ModAx2) Stand to Sit: Minimal assistance Bed to chair: Moderate assistance, 2 person (via stand step) Transfer aid: Walker Gait Belt Used For Transfers: Yes Transfer Barriers: Balance, Cognition, Fatigue, Gross motor strength Transfer Interventions: Task specific training Gait: Balance: Sitting - Static: Supervision Sitting - Dynamic: Supervision Standing - Static: Moderate assistance, Minimal assistance, With assistive device (ModAx2 w/BORING MACHINE OPERATOR HORIZONTAL progressing to Mod+Min w.RW progressing to ModA w/RW) Standing - Dynamic: Activity does not occur Balance Interventions: Sitting reaching activities [x]Vital signs monitored and found to be within normal limits with exceptions noted in Flowsheets/detailed below Hemodynamic Response/Aerobic Capacity See flowsheets [x]Full systems body functions review completed and found to be within normal limits with the following exceptions: Functions of joints and bones: BUE ROM WFL Muscle Functions: (strength, tone, endurance) Grossly WFL >4/5 BUE Movement Functions: Coordination: bilateral serial opposition intact Skin and related structure functions: Integumentary Skin C/D/I where visible PIV, GI tube Peripheral Edema: None observed Vascular: Extremities warm and well perfused appearing Sensory Integrity: Patient denied parasthesias. Grossly Intact to light touch throughout Visual Functions: Current Vision: Wears glasses only for reading Patient Visual Report: Baseline Proprioceptive Functions: Inattention/Neglect: Appears intact Initiation: Cues to initiate tasks Motor Planning: Cues to use objects appropriately Perseveration: Not present Pain: Reports pain in lower back. Does not rate or describe. Intervention: repositioning Limiting Symptoms: Fatigue Cognition Additional Tests/Measures: Team Communication: Communicated with [x]RN []MD [x]PT(cotx) []CM RE: Patient status []Silver Solderer utilized for session Intervention: ADL/Occupation task training Functional mobility training Functional balance training Cognitive training Activity tolerance training Patient/Caregiver Education RE: [x] Role of OT [x] Plan of care, [x] Discharge recommendations [] Fall Risk Reduction [x] Rehabilitation process and prognosis [] Delirium Education Other: Pt left seated with all needs in reach, 1:1 sitter at bedside. DIAGNOSIS Impairments and Functional Limitations in Occupational Performance: ADL/Self-care, Altered cognition, Altered balance, Decreased activity tolerance, Decreased attention, Decreased safety awareness Functional Mobility, Decreased activity tolerance, Safety Judgement, Lower body ADL's, Upper body ADL's, IADL's, Feeding, Toileting Clinical Impression/Prognosis: Carter Raymundo is a 70 y.o. male with a history of HTN, CKD, schizoaffective disorder, and drug-induced parkinsonism who presents to occupational therapy during hospitalization for stroke versus TME, but with unremarkable workup. Now medically stable pending inpatient psych placement for decompensated schizoaffective disorder. Based on the analysis of occupational performance, pt is functioning (well) below baseline which isimpacting successful occupational engagement. Specifically, pt is currently demonstrating impairments in cognition (attention, insight, safety awareness), functional mobility/balance, ADL performance, and overall activity tolerance which is likely due to deconditioning is prolonged hospitalization. 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 Due to pt current impairments and their impact on occupational engagement, pt will most benefit from d/c to interdisciplinary rehab. However, pt on section 12 due to inability to care for self and acute risk of psychiatric decompensation, bed search in progress. Acute OT will continue to follow andprogress per intervention plan. Positive prognostic indicators include: Age, Baseline level of function, Motivated Limiting prognostic factors include: Multiple co-morbidities, Impaired cognition Goals: Time Frame: 2 weeks - Pt will complete sit<>stand transfer Chela w/LRAD in prep for pant hike. - Pt will complete LB dressing Chela w/LRAD. - Pt will tolerate standing ~5-7 min in prep for standing grooming routine. - Pt will ambulate household distances Chela w/LRAD. Treatment Plan: ADL retraining, Balance training, Bed mobility, Cognitive retraining, Energy conservation/pacing, Equipment evaluation/education, Functional mobility training, IADL retraining, Patient/family education (psychoeducation, coping skills) Frequency/Duration: Min 1x/wk Patient agrees with the above goals and is willing to participate in the rehabilitation program: Yes Time: [id number] Occupational Therapist Name: Payton Cramer OT #[id number] Occupational Therapist Pager: [phone] * Kimani Rivas MD - 06/12/2025 10:04 AM EDT Images from the original note were not included. [facility] PSYCHIATRIC CONSULTATION FOLLOW-UP NOTE INTERVAL HPI: -NAEON -Nursing reports patient calm this AM - Staff reports pt intermittently endorsing SI Patient reports wanting to start over with TW starting today. He states that he had drug sleep overnight and only slept for 6 hours. He reports that he felt he needed more antipsychotic overnightas well because he felt he was losing his mind. He could not elaborate on specific symptoms. He states he intends to continue writing more poetry that will be greater than Kassi . He endorses euthymic mood and denies any thoughts of self harm. He looks forward to calling his therapist today and working with PT. REVIEW OF SYSTEMS: As per HPI EXAM: 06/12/2025 8:23 AM Vital Signs Temperature 97.3 ??F (36.3 ??C) Heart Rate 96 Respiration 16 SpO2 98 % Blood Pressure 137/87 Neurological: Motor: no abnormal movements appreciated on exam; demonstrates spontaneous movements of all extremities Cognitive: Wakefulness/alertness: awake and alert Orientation: oriented to person/place/situation Attention:attentive to conversation Memory: grossly intact Mental Status: Appearance: appears stated age, in hospital gown Behavior: good eye contact, calm, cooperative, does not appear internally preoccupied Mood: best I've felt Affect: constricted, stable Speech: normal rate/rhythm/tone/volume Thought process: linear, grossly organized Thought content and perceptions: denies SI/HI/AVH; no nir delusions or paranoia elicited however some grandiose thinking Insight and judgment: limited/fair MEDICATIONS: Scheduled Meds:Scheduled Medications[1] Continuous Infusions:Infusions Meds[2] PRN Meds:.PRN Medications[3] DATA: Reviewed. ASSESSMENT: Carter Raymundo is a 69 y.o. male with past psych history of schizoaffective disorder on clozapine,past medical history of hypertension, CKD, oropharyngeal dysphagia c/b frequent aspiration now s/p PEG, drug-induced Parkinsonism, who presented from nursing facility with altered mental status with unresponsiveness and aphasia, now medically cleared. Psychiatry initially consulted for assistance with diagnostic clarification, with initial differential ddx of catatonia vs delirium/encephalopathy vs decompensated psychosis. On evaluation today, patient presentation significant for euthymic mood with labile affect, grandiose thinking. Per staff report, will occasionally endorse SI at times and endorse severe anxiety. He is generally behaviorally appropriate though still demonstrates targeted paranoid delusions in a splitting fashion. He does not appear delirious. He is adherent to medication regimen and working with various provider teams appropriately. Symptoms may be concerning for mixed mood episode vs emerging hypomania. Presentation has also been relatively dynamic of late; would be more reasonable to assessthe larger trajectory of his clinical course which is generally positive. Also, while psychiatric pathology is still evident, it is not clear how much his current presentation differs from baseline; will continue attempts to gain additional collateral from terminal carman outpatient psychologist to determine baseline personality and characterological vulnerabilities. Will increase clozapine today to address ongoing psychotic symptoms and further mood stabilization; appreciate normal bowel movements and stable Qtc. Patient presentation consistent with acute psychosis in the setting of schizoaffective disorder, delirium and/or underlying neurocognitive disorder (not previously diagnosed per records). Presentation of altered mental status also similar to prior: catatonia was deemed unlikely given isolated symptom of mutism, intermittent stupor without muscle rigidity/waxy flexibility, and also the limited effect of benzodiazepines on clinical course. No structural intracranial abnormalities on imaging. Multiple EEGs demonstrate no seizure, findings more consistent with delirium but non-specific. Regardingpsychiatric symptoms, he is paranoid, endorses delusions, has endorsed SI, made verbal threats to staff, does not have known AVH. Holding bupropion, lowering Sinemet dose as able to facilitate decrease in agitation which appears primarily related to psychosis at this time. Currently on previous home clozapine dose. Brother reports at baseline patient is relatively high-functioning, pleasant, not o vertly paranoid. At this point, no concern for acute medical illness, and behavior seems primarily related to underlying schizoaffective disorder. Primary medical team has cleared patient for inpatient psychiatric bed placement. Weekly interdisciplinary meeting held 06/12 to discuss patient's recent behavior and dispo barriers.Addressing agitation and psychosis with scheduled clozapine, depakote, Haldol. For dispo, patient will need to demonstrate improvement in mobility (first actionable goal out of bed to chair), cooperation with care. HCP affirmed on 05/20 for substitute decision making. Patient on section 12 due to risk of self harm, inability to care for self and acute risk of psychiatric decompensation, bed search in progress. DSM-5 DIAGNOSIS: Delirium (hypoactive, resolved) Schizoaffective disorder R/o unspecified neurocognitive disorder RECOMMENDATIONS: #LEGAL Patient remains on section 12, cannot leave AMA, bed search in progress Continue 1:1 sitter #MANAGEMENT Note last Qtc: 483 - 06/11 [place]; consider repeat EKG q2-3 days as able for monitoring of QTc Continue delirium precautions --> Emphasize strong diurnal cues including windows open during day, limit disruptions overnight, practice avoidance of deliriogenic drugs as possible, mobilize throughout the day as possible, optimize nutrition, ensure normal regular bowel movements, and treat pain to the extent possible Clozapine dosing: please increase to 25mg qAM+200mg qHS C/w valproate to 500mg PO qAM+ 500mg PO qHS Please continue efforts to ensure regular bowel movements while on clozapine with consistent documentation bowel movements C/w gabapentin dose to 100 mg qAM+300mg QHS Continue to hold Wellbutrin 100 mg TID Continue ramelteon 8 mg QHS Continue trazodone 150 mg QHS Please c/w standing Haldol to 1mg PO QD + 3mg PO QHS For mild/moderate agitation, offer haloperidol 2mg PO BID PRN May give Haldol 2 mg IM PRN for refractory acute agitation, monitoring closely for EPS; may repeat same dose if no response in 30 mins; would re-engage psychiatry if requiring multiple doses Please note benzodiazepines may worsen acute delirium Psychiatry will continue to follow Kimani Rivas MD Psychiatry PGY2 Psychiatric Consultation Liaison Service Please contact [phone] for overnight or weekend psychiatric emergencies. [1] acetaminophen, 1,000 mg, G-tube, TID atorvaSTATin, 20 mg, G-tube, QHS [Held by provider] buPROPion, 100 mg, G-tube, TID cloZAPine, 175 mg, G-tube, QHS cloZAPine, 25 mg, G-tube, Daily enoxaparin, 40 mg, Subcutaneous, Q24H CLAUDIA famotidine, 20 mg, G-tube, BID gabapentin, 100 mg, G-tube, QAM gabapentin, 300 mg, G-tube, QHS haloperidoL, 1 mg, G-tube, Daily And haloperidoL, 3 mg, G-tube, QHS ketoconazole, , Topical, BID lactulose, 20 g, G-tube, Daily lidocaine, 1 patch, Topical, Q24H lidocaine, 1 patch, Topical, Q24H multivitamin with minerals, 15 mL, G-tube, Daily sodium chloride, 3 mL, Intravenous, Q12H CLAUDIA polyethylene glycol, 17 g, G-tube, BID ramelteon, 8 mg, G-tube, QHS sennosides, 17.6 mg, G-tube, Daily tamsulosin, 0.4 mg, G-tube, QHS traZODone, 150 mg, G-tube, Nightly valproate, 500 mg, G-tube, BID [2] [3] bisacodyl calcium carbonate dextrose oral gel OR dextrose 50% OR dextrose 50% OR glucagon (human recombinant) diclofenac sodium guaiFENesin haloperidoL iohexoL ipratropium-albuteroL Insert and Maintain Peripheral IV AND sodium chloride AND sodium chloride sodium chloride * Patricia Holden MD - 06/12/2025 7:36 AM EDT [facility] Medicine Progress Note Patient: Carter Raymundo ( , 1955) Admission Date: 04/15/2025 PCP: Kilo Huynh Inpatient Attending: Feliciano Choi MD INTERVAL 24-hr events: Continuing to endorse SI Psych increased valproate to 500mg PO qAM+ 500mg PO qHS AM Subjective: Doing ok this morning - states that there was something wrong with his chocolate ice cream this morning and now he feels more anxious and suicidal. Would like a frappe and to speak with psychiatry. Acknowledged that mentally he is not doing well and would benefit from further psychiatric treatment. OBJECTIVE Vitals: T 98.8 ??F (37.1 ??C) HR (!) 105 BP 107/75 RR 18 SpO2 96 % O2 Device: None (Room air) Wt 75.8 kg (167 lb 1.7 oz) Body mass index is 23.31 kg/m??. General: NAD HEENT: anicteric sclerae, moist membranes Cardiac: RRR, no m/r/g, no JVD Pulm: CTAB, non-labored Abdomen: soft, NTND Extremities: no edema, warm Neuro: symmetric face, EOMI, fluent speech, moving all limbs Skin: rash and peeling skin noted on feet/ R calf. Mild improvement. Labs and reports reviewed in the chart. Pertinent findings are noted in the A/P. ASSESSMENT/PLAN 70 y.o. male with PMHx schizoaffective disorder, drug-induced parkinsonism, CKD, and PEG dependenceadmitted with delirium on psychiatric decompensation, later COVID+ with aspiration pneumonia, now stable on RA, awaiting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 for swallow study now more stable and appropriate from psych standpoint, requesting POs. Oral phase was remarkable for reduced mastication of soft solids resulting small pieces of solids being swallowed whole. Pharyngeal phase was significant for reduced hyo-laryngeal elevation, reduced pharyngeal squeeze, reduced epiglottic deflection likely related to ACDF, with delayed swallow initiation. Appreciated consistent laryngeal penetration with thin and mildly thick liquids with intermittent silent and overt aspiration of thin liquids. Appreciated mild-moderate pharyngeal residue with solids, did not clear with cued swallow, improved with liquid wash but resulted in aspiration of mixed consistencies. Overall pt continues to demonstrate severe pharyngeal dysphagia silent aspiration of multiple consistencies. Safest diet to reduce/minimize aspiration risk would be to continue NPO with nutrition via PEG. OK for ice chips for oral comfort. As pt has had several swallow studies in the past with variable performance and recommendations, itmay be of benefit to explore further GOC re: nutrition and PO intake for comfort. Per report from pt/RN/provider, pt often asking for PO indicating it is motivating/comforting to him. With further GOC discussion with provider, HCP, and pt, option is available to allow liberalization for PO snacks for pleasure for pt comfort and increased QOL with acknowledged aspiration risk. Option to liberalizediet for up to 3x snacks per day (one per meal time) of 4oz container of ice cream/juice/pudding/ applesauce etc. Administered by RN. Would still recommend strict aspiration precautions with intake including stringent oral hygiene. As this is a chronic dysphagia without acute exacerbation, SOLAR DESIGN ENGINEER to sign off at this time. Diet orderand advancement to PO for pleasure at provider discretion. Please do not hesitate to reach out or reconsult SOLAR DESIGN ENGINEER for further or new questions/concerns. This swallowing pattern correlates to a Functional Oral Intake Scale (FIOS) rating of 2/7 Tube-dependent with minimal/inconsistent oral intake. Recommendations Diet: NPO with PEG; ok ice ad stoney PO diet liberalization at provider discretion to allow for recreational snacks as described above Medications: non oral Aspiration precautions: Supervision: 1:1 Remain upright during and following PO Small bites Slow rate Bedside suction available in room Stringent oral care before/after PO Speech/swallow service to continue to follow patient. Please page with questions or concerns These recommendations were shared with the patient,, the patient's RN,, and the medical team, Nedra Rader MS [facility]-SOLAR DESIGN ENGINEER Speech Language Pathologist Pager #: [phone] Face Time: [id number] Total Time: 60 min 06/11/25 [1] Allergies Allergen Reactions Morphine Itching Electronically signed by Nedra Rader MS [facility]SOLAR DESIGN ENGINEER at 06/11/2025 2:22 PM EDT * Patricia Holden MD - 06/11/2025 11:13 AM EDT [facility] Medicine Progress Note Patient: Carter Raymundo ( , 1955) Admission Date: 04/15/2025 PCP: [facility] Inpatient Attending: Feliciano Choi MD INTERVAL 24-hr events: Moved to a new room and is pleased about it. Continuing to endorse SI. Continuing to call friends/ family. AM Subjective: Continuing to have sustained improvement in his mental status; continuing to call family/friends and read. 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 Not overly animated on exam, still speaking slowly and well paced. The idea of SOLAR DESIGN ENGINEER swallow makes him anxious, but he is considering it. Reinforced that this is his decision and diagnostics only have the potential to help him/keep management the same at this point in time because he can only have water/ice chips currently. OBJECTIVE Vitals: T 97.8 ??F (36.6 ??C) HR (!) 92 BP 133/82 RR 18 SpO2 97 % O2 Device: None (Room air) Wt 75.8 kg (167 lb 1.7 oz) Body mass index is 23.31 kg/m??. General: NAD HEENT: anicteric sclerae, moist membranes Cardiac: RRR, no m/r/g, no JVD Pulm: CTAB, non-labored Abdomen: soft, NTND Extremities: no edema, warm Neuro: symmetric face, EOMI, fluent speech, moving all limbs Skin: rash and peeling skin noted on feet/ R calf. Mild improvement. Labs and reports reviewed in the chart. Pertinent findings are noted in the A/P. ASSESSMENT/PLAN 70 y.o. male with PMHx schizoaffective disorder, drug-induced parkinsonism, CKD, and PEG dependenceadmitted with delirium on psychiatric decompensation, later COVID+ with aspiration pneumonia, now stable on RA, awaiting cheli-psych placement. ACTIVE ISSUES # Transient unresponsiveness # Schizoaffective disorder # Acute delirium # Suicidal ideation Multiple transient unresponsiveness events; stroke and seizure workup negative (CTH, MRI brain, EEG). Likely acute delirium on background of decompensated schizoaffective disorder. Psychiatry managing clozapine titration and adjuncts; haloperidol for augmentation and agitation. Meets Section 12 criteria. He has not had any periods of minimal responsiveness to stimulation, but has significantly improved. He is now endorsing SI, which is monitored by psych, with some concern now with his improvedcognitive processing that the SI might become more active. Carter expressed that he is wondering what his next step are, and expressed hesitation about a psychiatric program. Concern for potential developing hypomania. - Psych following - weekly interdisciplinary meetings - c/w clozapine 25 mg qAM + 175 mg qhs (increased) - c/w valproate 250mg TID - Standing haloperidol to 1mg qD + 3mg qHS - c/w trazodone 150 mg qhs - c/w ramelteon 8 mg qhs - HCP affirmed; cannot leave AMA # Oropharyngeal Dysphagia with G-Tube Dependence Pulled G-tube ??2 (replaced 05/12). Variable PO tolerance; aspiration risk high. High risk of complication with aspiration/pneumonia and would recommend that he remain NPO given potential medical setback in psych placement. However, patient 06/08 with improvements in mental status, could re-consider SOLAR DESIGN ENGINEER and video swallow. Discussion with HCP that he hopes Carter will be eventually able to transition from the G tube back to PO after swallow therapy. - c/w overnight tube feeds; adjustments per nutrition. - NPO except for H2O with nursing 1:1 bedside. - SOLAR DESIGN ENGINEER modified barium swallow 06/11. # Constipation / Diarrhea Hx severe stool burden on clozapine requiring aggressive bowel regimen; now with diarrhea intermittently. Responds well to mag citrate if refractory to other attempts. - adjust bowel reg pending stool output - last large BM 06/10 # Tinea corporis/pedis - topical ketoconazole cream to feet/calf. Appears to have mild improvement. - If not improvement consider oral treatment, however, caution iso his mildly prolonged EKG. CHRONIC ISSUES # AHRF (resolved): i/s/o COVID/HAP s/p Remdesivir and HAP abx # Drug-induced Parkinsonism: Sinemet tapered and discontinued (05/28) # CAD: c/h atorvastatin # CKD: at baseline Cr # BPH: c/h tamsulosin # GERD: c/h famotidine CORE MEASURES - Access: PIV(s) - DVT ppx: Lovenox (patient intermittently refusing) - Code Status: Full Code - Contact/HCP: brother Delvin Raymundo [phone] - Dispo: cheli-psych placement, trial with PT -- Patricia Holden MD Resident, Internal Medicine Cosigned by Feliciano Choi MD at 06/11/2025 1:14 PM EDT Associated attestation - Feliciano Choi MD - 06/11/2025 1:14 PM EDT I have seen and examined Mr. Raymundo, reviewed the findings and plan of care as documented by Patricia Holden MD and agree, except for any additional comments below. 69M with a history of schizoaffective disorder c/b drug-induced parkinsonism, HTN, and oropharyngeal dysphagia s/p G-tube on TF who presented to [facility] on 04/15 with unresponsiveness, aphasia, and concern for L facial droop (stroke workup negative) c/f psychiatric decompensation. Course complicated by acute hypoxic respiratory failure 2/2 COVID pneumonia s/p remdesivir and dexamethasone, likely multifocal aspiration pneumonia, and severe mucous plugging (all resolved), and ongoing deconditioning. #Acute psychosis #Schizoaffective disorder #SI. Ongoing paranoia, emotional lability, disorganized thought, grandiosity, SI. Currently writing a combination of a poem and play that will be better than Kassi. HCP affirmed 05/20 for surrogate decision-making, psychiatry following for medication management with clozapine, depakote, haldol, trazodone, and gabapentin. S12, 1:1 sitter. Ultimate plan for inpatient psychiatry placement. #Deconditioning: Currently has rehab-level needs, but prioritizing psychiatric hospitalization. Slowly progressing with daily PT #Drug induced parkinsonism: sinemet #Dysphagia s/p PEG: TF; patient frequently asking for PO however has been deemed high risk for aspiration; now agreeable for VSS/FEES, planned for today Medically stable for inpatient geriatric psychiatry placement, within the confines of his mobility limitations. I spent 40 minutes in this clinical encounter reviewing the medical record, seeing and examining the patient, placing orders, writing notes, performing signout, and communicating with the applicable medical and nursing teams. Feliciano Choi MD Section of Hospital Medicine [facility] * Yogi Blevins, PT - 06/10/2025 6:20 PM EDT PHYSICAL THERAPY PROGRESS NOTE Rehabilitation Services - Inpatient Physical Therapy Level of Care: Floor Interdisciplinary Recommendations PT Discharge rec: Pending psych recommendations Activity and Mobility Recommendations: [x]Patient is at high risk for deconditioning. Please maximize independence in ADLs and encourage frequent mobility including: Lift for all mobility including transfers to chair 3x/day [x]Patient is at risk for falls. Please use chair alarm when out of bed. [x]Patient is at risk for delirium. Please consider implementing strategies to reduce risk including: OOB to chair 3 day for all meals Familiar pictures and items within view News or nonverbal music on during daytime Lights on during day with shades UP Frequent Reorientation to clock, calendar, and window Encourage participation with ADLs Encourage family presence at bedside *For questions please check the patient???s care team for the most updated PT contact information [x]Updated medical status including labs, radiology, procedures and medications since previous visit reviewed Subjective: This is hard but I have to do it Patient-Stated Goal: Sit in the chair. Objective: Hemodynamic Response/Aerobic Capacity VS stable and monitored throughout session, pt denied dizziness or SOB Functional Mobility Bed Mobility: Supine to Sit: Minimal assistance Adaptive Equipment: HOB elevated, Side rails Sit to Supine: Activity does not occur (patient left in recliner at end of session) Transfers: Sit to Stand: Minimal assistance (patient completed x2 STS throughout session) Stand to Sit: Minimal assistance Bed to chair: Moderate assistance Squat step Transfers: Moderate assistance. Pt able to take 2 steps to transfer to chair with use of RW Gait Belt Used For Transfers: Yes Gait: Ambulation Assistance: Activity does not occur Balance: Sitting - Static: Supervision Sitting - Dynamic: Supervision Standing - Static: Minimal assistance, With assistive device Standing - Dynamic: Minimal assistance, With assistive device Balance Interventions: Sitting reaching activities, Standing reaching activities, Weight shifting Pain: Pt reported non-specific back pain during mobility. Appeared to improve when pt not focusing/perseverating on it. Limiting Symptoms: Fatigue Other Tests and Measures: Cognition: Level of Consciousness: Alert Orientation Level: Oriented X4 Oriented to: Name, Date of , Month, Place, Name of hospital Disoriented to: Day ( Middle of May ) Following Directions: Follows all directions without difficulty Success rate following directions: 100% of the time Patient Behaviors/Mood: Appropriate, Cooperative, Pleasant Attention to Tasks: Attends to task, Attends to conversation Test of Attention: Intact Days of week backwards Safety Awareness: Decreased awareness of need for assistance, Decreased awareness of errors Insight: Impaired Problem Solving: Assistance required to identify errors made Intervention: Therapeutic activities Functional mobility training Balance training Endurance training Energy conservation Patient/Caregiver Education RE: [x]Role of PT [x]PT plan of care [x]Fall risk reduction [x]Discharge recommendations [x]Mobility Recommendations []Other: Team Communication: Communicated with [x]RN [x]MD []OT []CM RE: Patient status []Patient discussed at interdisciplinary team rounds. Pt left seated with all needs in reach, 1:1 sitter present in room Assessment Clinical Impression: Carter Raymundo is a 70 y.o. male with a history of of HTN, CKD, schizoaffective disorder, and drug-induced parkinsonism who presents to physical therapy during hospitalization for stroke versus TME, but with unremarkable workup. Now medically stable pending inpatient psych placement for decompensated schizoaffective disorder. Pt is making steady progress as demonstrated by improved participation in functional mobility as compared to previous visit. Pt continues to function below baseline limited by the primary impairment/activity limitation of endurance, dynamic balance and impaired strength which is likely due to deconditioning iso prolonged hospitalization. Patient awaiting psych recommendations. Acute PT will continue to follow and progress mobility as appropriate. Treatment Plan: Balance training, Bed mobility, Gait training/stairs, Therapeutic Activities/Functional Training, Therapeutic Exercise, Transfer training Patient agrees with the above goals and is willing to participate in the rehabilitation program: Yes Time: 1718-3216 Physical Therapist Name: Yogi Blevins PT Physical Therapist Pager: [phone] License #: [id number] * Patricia Holden MD - 06/10/2025 6:42 AM EDT [facility] Medicine Progress Note Patient: Carter Raymundo ( , 1955) Admission Date: 04/15/2025 PCP: [facility] Inpatient Attending: Feliciano Choi MD INTERVAL 24-hr events: Has been more alert, engaging, social. Read a book yesterday. Had a long conversation in the evening with him after he got off the phone with his cousin, which he found very distressing. He is wondering if it would be possible for him to be moved to a differentroom in order to move forward and associates his current room with a bad point in time . 8:22 PM Pt acutely agitated, endorsing SI (states he wants to stab himself in the heart ) and states he wants to abdirahman / take down the hospital. Pt agrees to receive Haldol. Discussed with nursing to minimize unnecessary interaction to promote staff safety and to decrease unnecessary agitation/provocation. Will CTM. AM Subjective: He is doing well today. Continuing to have sustained improvement in his social interactions, cognitive processing, and ability to retain information. He was able to be moved to a different room, which he feels has helped him feel better. With conversations that cause him emotional distress he notes physical pain (back, stomach) but does not want pain medication as he feels strongly that it is related to his psychiatric distress. He is continuing to feel suicidal, and expressed that he would not want to go to a psychiatric based program next. OBJECTIVE Vitals: T 97.8 ??F (36.6 ??C) HR 88 BP 120/73 RR 16 SpO2 96 % O2 Device: None (Room air) Wt 75.8 kg (167 lb 1.7 oz) Body mass index is 23.31 kg/m??. General: NAD HEENT: anicteric sclerae, moist membranes Cardiac: RRR, no m/r/g, no JVD Pulm: CTAB, non-labored Abdomen: soft, NTND Extremities: no edema, warm Neuro: symmetric face, EOMI, fluent speech, moving all limbs Skin: rash and peeling skin noted on feet/ R calf. Mild improvement. Labs and reports reviewed in the chart. Pertinent findings are noted in the A/P. ASSESSMENT/PLAN 70 y.o. male with PMHx schizoaffective disorder, drug-induced parkinsonism, CKD, and PEG dependenceadmitted with delirium on psychiatric decompensation, later COVID+ with aspiration pneumonia, now stable on RA, awaiting cheli-psych placement. ACTIVE ISSUES # Transient unresponsiveness # Schizoaffective disorder # Acute delirium Multiple transient unresponsiveness events; stroke and seizure workup negative (CTH, MRI brain, EEG). Likely acute delirium on background of decompensated schizoaffective disorder. Psychiatry managing clozapine titration and adjuncts; haloperidol for augmentation and agitation. Meets Section 12 criteria. He has not had any periods of minimal responsiveness to stimulation, but has significantly improved. He is now endorsing SI, which is monitored by psych. - Psych following - weekly interdisciplinary meetings - c/w clozapine 25 mg qAM + 175 mg qhs (increased) - c/w valproate 250mg TID - Standing haloperidol to 1mg qD + 3mg qHS - c/w trazodone 150 mg qhs - c/w ramelteon 8 mg qhs - HCP affirmed; cannot leave AMA # Oropharyngeal Dysphagia with G-Tube Dependence Pulled G-tube ??2 (replaced 05/12). Variable PO tolerance; aspiration risk high. High risk of complication with aspiration/pneumonia and would recommend that he remain NPO given potential medical setback in psych placement. However, patient 06/08 with improvements in mental status, could re-consider SOLAR DESIGN ENGINEER and video swallow. Discussion with HCP that he hopes Carter will be eventually able to transition from the G tube back to PO after swallow therapy. - c/w overnight tube feeds; adjustments per nutrition. - NPO except for H2O with nursing 1:1 bedside. - SOLAR DESIGN ENGINEER consult if patient agreeable, limited by agitation/paranoia # Constipation / Diarrhea Hx severe stool burden on clozapine requiring aggressive bowel regimen; now with diarrhea intermittently. Responds well to mag citrate if refractory to other attempts. - adjust bowel reg pending stool output - last large BM 06/09 pm # Tinea corporis/pedis - topical ketoconazole cream to feet/calf. Appears to have mild improvement. - If not improvement consider oral treatment, however, caution iso his mildly prolonged EKG. CHRONIC ISSUES # AHRF (resolved): i/s/o COVID/HAP s/p Remdesivir and HAP abx # Drug-induced Parkinsonism: Sinemet tapered and discontinued (05/28) # CAD: c/h atorvastatin # CKD: at baseline Cr # BPH: c/h tamsulosin # GERD: c/h famotidine CORE MEASURES - Access: PIV(s) - DVT ppx: Lovenox (patient intermittently refusing) - Code Status: Full Code - Contact/HCP: brother Delvin Raymundo [phone] - Dispo: cheli-psych placement, trial with PT -- Patricia Holden MD Resident, Internal Medicine Cosigned by Feliciano Choi MD at 06/10/2025 8:38 PM EDT Associated attestation - Feliciano Choi MD - 06/10/2025 8:38 PM EDT I have seen and examined Mr. Raymundo, reviewed the findings and plan of care as documented by Patricia Holden MD and agree, except for any additional comments below. 69M with a history of schizoaffective disorder c/b drug-induced parkinsonism, HTN, and oropharyngeal dysphagia s/p G-tube on TF who presented to [facility] on 04/15 with unresponsiveness, aphasia, and concern for L facial droop (stroke workup negative) c/f psychiatric decompensation. Course complicated by acute hypoxic respiratory failure 2/2 COVID pneumonia s/p remdesivir and dexamethasone, likely multifocal aspiration pneumonia, and severe mucous plugging (all resolved), and ongoing deconditioning. #Acute psychosis #Schizoaffective disorder #SI. Ongoing paranoia, emotional lability, disorganized thought, grandiosity. HCP affirmed 05/20 for surrogate decision-making, psychiatry following for medication management with clozapine, depakote, haldol, trazodone, and gabapentin. S12, 1:1 sitter. Ultimate plan for inpatient psychiatry placement. #Deconditioning: Currently has rehab-level needs, but prioritizing psychiatric hospitalization. Progressing with daily PT #Drug induced parkinsonism: sinemet #Dysphagia s/p PEG: TF; patient frequently asking for PO however has been deemed high risk for aspiration, continue to encourage SOLAR DESIGN ENGINEER evaluation with VFSS/FEES. Medically stable for inpatient geriatric psychiatry placement, within the confines of his mobility limitations. I spent 35 minutes in this clinical encounter reviewing the medical record, seeing and examining the patient, placing orders, writing notes, performing signout, and communicating with the applicable medical and nursing teams. Feliciano Choi MD Section of Hospital Medicine [facility] * Demetra Hawkins, PT - 06/09/2025 4:31 PM EDT PHYSICAL THERAPY PROGRESS NOTE Rehabilitation Services - Inpatient Physical Therapy Level of Care: Floor Interdisciplinary Recommendations PT Discharge rec: (pending psych) Activity and Mobility Recommendations: [x]Patient is at high risk for deconditioning. Please maximize independence in ADLs and encourage frequent mobility including: Lift for all mobility including transfers to chair 3x/day []Patient is at risk for pressure injury. Please limit sitting time to one hour on standard air cushion given patient???s inability to effectively reposition in chair. [x]Patient is at risk for falls. Please use chair alarm when out of bed. [x]Patient is at risk for delirium. Please consider implementing strategies to reduce risk including: OOB to chair 3 day for all meals Familiar pictures and items within view News or nonverbal music on during daytime Lights on during day with shades UP Frequent Reorientation to clock, calendar, and window Encourage participation with ADLs Encourage family presence at bedside *For questions please check the patient???s care team for the most updated PT contact information [x]Updated medical status including labs, radiology, procedures and medications since previous visit reviewed Subjective: My legs look like steel Patient-Stated Goal: to get to the chair. Agreeable to PT session Objective: Hemodynamic Response/Aerobic Capacity VSS and monitored throughout session. Patient asymptomatic throughout. Relevant cardiac medications reviewed per EMR Functional Mobility Bed Mobility: Supine to Sit: Minimal assistance Adaptive Equipment: HOB elevated, Side rails Sit to Supine: Activity does not occur (patient in recliner at end of session) Transfers: Sit to Stand: Minimal assistance (patient completing x2 STS throughout session) Stand to Sit: Minimal assistance Bed to chair: Moderate assistance, 2 person Squat Pivot Transfers: Moderate assistance, 2 person Gait Belt Used For Transfers: Yes Gait: Ambulation Assistance: Activity does not occur Balance: Sitting - Static: Supervision Sitting - Dynamic: Supervision Standing - Static: Minimal assistance, With assistive device Standing - Dynamic: Minimal assistance, With assistive device Balance Interventions: Sitting reaching activities, Standing reaching activities, Weight shifting Pain: Patient denies throughout session Limiting Symptoms: Fatigue Other Tests and Measures: Cognition: Level of Consciousness: Alert Orientation Level: Oriented X4 Following Directions: Follows all directions without difficulty Success rate following directions: 100% of the time Patient Behaviors/Mood: Appropriate, Cooperative, Pleasant Attention to Tasks: Attends to task, Attends to conversation Safety Awareness: Decreased awareness of need for assistance, Decreased awareness of errors Insight: Impaired Problem Solving: Assistance required to identify errors made Intervention: Therapeutic activities Functional mobility training Balance training Endurance training Energy conservation Patient/Caregiver Education RE: [x]Role of PT [x]PT plan of care [x]Fall risk reduction [x]Discharge recommendations [x]Mobility Recommendations []Other: []Silver Solderer utilized for session Team Communication: Communicated with [x]RN [x]MD []OT [x]CM RE: Patient status [x]Patient discussed at interdisciplinary team rounds. Pt left seated with all needs in reach, 1:1 sitter in room Assessment Clinical Impression: Carter Raymundo is a 70 y.o. male with a history of HTN, CKD, schizoaffective disorder, and drug-induced parkinsonism who presents to physical therapy during hospitalization for stroke versus TME, but with unremarkable workup. Now medically stable pending inpatient psych placement for decompensated schizoaffective disorder. Pt is making steady progress as demonstrated by improved participation in functional mobility as compared to previous visit. Pt continues to function below baseline limited by the primary impairment/activity limitation of endurance, dynamic balance andimpaired strength which is likely due to deconditioning iso prolonged hospitalization. Patient awaiting psych recommendations. Acute PT will continue to follow and progress mobility while in house. Treatment Plan: Balance training, Bed mobility, Gait training/stairs, Therapeutic Activities/Functional Training, Therapeutic Exercise, Transfer training Patient agrees with the above goals and is willing to participate in the rehabilitation program: Yes Time: 5669-2003 Physical Therapist Name: DEMETRA HAWKINS PT Physical Therapist Pager: [phone] License #: [id number] * Patricia Holden MD - 06/09/2025 6:51 AM EDT [facility] Medicine Progress Note Patient: Carter Raymundo ( , 1955) Admission Date: 04/15/2025 PCP: Kilo Huynh Inpatient Attending: Feliciano Choi MD INTERVAL 24-hr events: - psych increased clozapine to 25+175mg - PT yesterday AM Subjective: Doing well this morning, but feels very tired. Still having some abdominal discomfort. Asking for ice cream and I explained the risk for aspiration and pneumonia and he was able to process and internalize the information - later stating to nursing that he was very disheartened by the information. Spoke to his HCP Delvin who notes that he called all his friends and him yesterday and has been muchmore social. Today he called his therapist. OBJECTIVE Vitals: T 98.3 ??F (36.8 ??C) HR (!) 101 BP 126/83 RR 16 SpO2 96 % O2 Device: None (Room air) Wt 75.8 kg (167 lb 1.7 oz) Body mass index is 23.31 kg/m??. General: NAD HEENT: anicteric sclerae, moist membranes Cardiac: RRR, no m/r/g, no JVD Pulm: CTAB, non-labored Abdomen: soft, NTND Extremities: no edema, warm Neuro: symmetric face, EOMI, fluent speech, moving all limbs Skin: rash and peeling skin noted on feet/ R calf. Mild improvement. Labs and reports reviewed in the chart. Pertinent findings are noted in the A/P. ASSESSMENT/PLAN 70 y.o. male with PMHx schizoaffective disorder, drug-induced parkinsonism, CKD, and PEG dependenceadmitted with delirium on psychiatric decompensation, later COVID+ with aspiration pneumonia, now stable on RA, awaiting cheli-psych placement. ACTIVE ISSUES # Transient unresponsiveness # Schizoaffective disorder # Acute delirium Multiple transient unresponsiveness events; stroke and seizure workup negative (CTH, MRI brain, EEG). Likely acute delirium on background of decompensated schizoaffective disorder. Psychiatry managing clozapine titration and adjuncts; haloperidol for augmentation and agitation. Meets Section 12 criteria. He has not had any periods of minimal responsiveness to stimulation, but has significantly improved. He is now endorsing SI, which is monitored by psych. - Psych following - weekly interdisciplinary meetings - c/w clozapine 25 mg qAM + 175 mg qhs (increased) - c/w valproate 250mg TID - Standing haloperidol to 1mg qD + 3mg qHS - c/w trazodone 150 mg qhs - c/w ramelteon 8 mg qhs - HCP affirmed; cannot leave AMA # Oropharyngeal Dysphagia with G-Tube Dependence Pulled G-tube ??2 (replaced 05/12). Variable PO tolerance; aspiration risk high. High risk of complication with aspiration/pneumonia and would recommend that he remain NPO given potential medical setback in psych placement. However, patient 06/08 with improvements in mental status, could re-consider SOLAR DESIGN ENGINEER and video swallow. Discussion with HCP that he hopes Carter will be eventually able to transition from the G tube back to PO after swallow therapy. - c/w overnight tube feeds; adjustments per nutrition. - NPO except for H2O with nursing 1:1 bedside. - SOLAR DESIGN ENGINEER consult if patient agreeable, limited by agitation/paranoia # Constipation / Diarrhea Hx severe stool burden on clozapine requiring aggressive bowel regimen; now with diarrhea intermittently. Responds well to mag citrate if refractory to other attempts. - adjust bowel reg pending stool output - last large BM 06/08. # Tinea corporis/pedis - topical ketoconazole cream to feet/calf. Appears to have mild improvement. - If not improvement consider oral treatment, however, caution iso his mildly prolonged EKG. CHRONIC ISSUES # AHRF (resolved): i/s/o COVID/HAP s/p Remdesivir and HAP abx # Drug-induced Parkinsonism: Sinemet tapered and discontinued (05/28) # CAD: c/h atorvastatin # CKD: at baseline Cr # BPH: c/h tamsulosin # GERD: c/h famotidine CORE MEASURES - Access: PIV(s) - DVT ppx: Lovenox (patient intermittently refusing) - Code Status: Full Code - Contact/HCP: brother Delvin Raymundo [phone] - Dispo: cheli-psych placement, trial with PT -- Patricia Holden MD Resident, Internal Medicine Cosigned by Feliciano Choi MD at 06/09/2025 5:10 PM EDT Associated attestation - Feliciano Choi MD - 06/09/2025 5:10 PM EDT I have seen and examined Mr. Raymundo, reviewed the findings and plan of care as documented by Patricia Holden MD and agree, except for any additional comments below. 69M with a history of schizoaffective disorder c/b drug-induced parkinsonism, HTN, and oropharyngeal dysphagia s/p G-tube on TF who presented to [facility] on 04/15 with unresponsiveness, aphasia, and concern for L facial droop (stroke workup negative) c/f psychiatric decompensation. Course complicated by acute hypoxic respiratory failure 2/2 COVID pneumonia s/p remdesivir and dexamethasone, likely multifocal aspiration pneumonia, and severe mucous plugging (all resolved), and ongoing deconditioning. Attempted to engage for discussion about further evaluation for dysphagia (video swallow study) to stratify aspiration risk. He says that he does not feel this discussion is constructive, but is rather a trap. He insists that he work with an older SOLAR DESIGN ENGINEER (asking me to guarantee that they be at least 50 years old, which I said is unfortunately not possible. He repeatedly says that I am too young and inexperienced to understand. He reported that I was making his Parkinson's tremors worse and asked me to leave. #Acute psychosis #Schizoaffective disorder. Evidence of ongoing paranoia, disorganized thought, somatization, and grandiosity. HCP affirmed 05/20 for surrogate decision-making, psychiatry following for medication management with clozapine, depakote, haldol, trazodone, and gabapentin. S12, 1:1 sitter, with ultimate plan for inpatient psychiatry placement when mobility improves. #Deconditioning: Currently has rehab-level needs, but psychiatric hospitalization remains the priority. #Drug induced parkinsonism: sinemet #Dysphagia s/p PEG: TF; patient frequently asking for PO however has been deemed high risk for aspiration, will continue to encourage SOLAR DESIGN ENGINEER evaluation with VFSS/FEES. I spent 45 minutes in this clinical encounter reviewing the medical record, seeing and examining the patient, placing orders, writing notes, performing signout, and communicating with the applicable medical and nursing teams. Feliciano Choi MD Section of Hospital Medicine [facility] * Demetra James, PT - 06/08/2025 4:40 PM EDT PHYSICAL THERAPY PROGRESS NOTE Rehabilitation Services - Inpatient Physical Therapy Level of Care: Floor Interdisciplinary Recommendations PT Discharge rec: (pending psych recommendations) Activity and Mobility Recommendations: [x]Patient is at high risk for deconditioning. Please maximize independence in ADLs and encourage frequent mobility including: Lift for all mobility including transfers to chair 3x/day []Patient is at risk for pressure injury. Please limit sitting time to one hour on standard air cushion given patient???s inability to effectively reposition in chair. [x]Patient is at risk for falls. Please use chair alarm when out of bed. [x]Patient is at risk for delirium. Please consider implementing strategies to reduce risk including: OOB to chair 3 day for all meals Familiar pictures and items within view News or nonverbal music on during daytime Lights on during day with shades UP Frequent Reorientation to clock, calendar, and window Encourage participation with ADLs Encourage family presence at bedside *For questions please check the patient???s care team for the most updated PT contact information [x]Updated medical status including labs, radiology, procedures and medications since previous visit reviewed Subjective: I have a fire in me that makes me work hard Patient-Stated Goal: to stand. Agreeable to PT session Objective: Hemodynamic Response/Aerobic Capacity VSS and monitored throughout session. Relevant cardiac medications reviewed per EMR Functional Mobility Bed Mobility: Rolling: Independent Supine to Sit: Minimal assistance Adaptive Equipment: HOB elevated, Side rails Sit to Supine: Supervision Transfers: Sit to Stand: Moderate assistance Stand to Sit: Minimal assistance Transfer aid: Walker Gait Belt Used For Transfers: Yes Gait: Ambulation Assistance: Activity does not occur Balance: Sitting - Static: Supervision Sitting - Dynamic: Supervision Standing - Static: Minimal assistance, With assistive device Standing - Dynamic: Activity does not occur Balance Interventions: Sitting reaching activities, Standing reaching activities, Weight shifting Pain: Patient does not report throughout session Limiting Symptoms: Fatigue Other Tests and Measures: Cognition: Level of Consciousness: Alert Orientation Level: Oriented to person, Oriented to place Oriented to: Name, Date of , Month, Place, Name of hospital Disoriented to: Date, Year Following Directions: Follows one step directions without difficulty Success rate following directions: 75-99% of the time Patient Behaviors/Mood: Brightens with approach Memory: Intact Attention to Tasks: Attends to task, Attends to conversation Safety Awareness: Decreased awareness of need for assistance, Decreased awareness of safety precautions Insight: Impaired Problem Solving: Assistance required to identify errors made Intervention: Therapeutic activities Functional mobility training Balance training Endurance training Energy conservation Patient/Caregiver Education RE: [x]Role of PT [x]PT plan of care [x]Fall risk reduction [x]Discharge recommendations [x]Mobility Recommendations []Other: []Silver Solderer utilized for session Team Communication: Communicated with [x]RN [x]MD []OT [x]CM RE: Patient status [x]Patient discussed at interdisciplinary team rounds. Pt left supine with all needs in reach, bed alarm for safety 1:1 sitter Assessment Clinical Impression: Carter Raymundo is a 70 y.o. male with a history of HTN, CKD, schizoaffective disorder, and drug-induced parkinsonism who presents to physical therapy during hospitalization for stroke versus TME, but with unremarkable workup. Now medically stable pending inpatient psych placement for decompensated schizoaffective disorder. Pt is making fair progress as demonstrated by similar level of functional mobility as compared to previous visit. Pt continues to function below baseline limited by the primary impairment/activity limitation of endurance, impaired strength and tolerance to activity which is likely due to deconditioning iso prolonged hospitalization. Patient awaiting psych recommendations. Acute PT will continue to follow and progress mobility while in house. Treatment Plan: Balance training, Bed mobility, Gait training/stairs, Therapeutic Activities/Functional Training, Therapeutic Exercise, Transfer training Patient agrees with the above goals and is willing to participate in the rehabilitation program: Yes Time: 9924-0328 Physical Therapist Name: DEMETRA HAWKINS PT Physical Therapist Pager: [phone] License #: [id number] * Kimani Rivas MD - 06/08/2025 10:03 AM EDT Images from the original note were not included. [facility] PSYCHIATRIC CONSULTATION FOLLOW-UP NOTE INTERVAL HPI: -NAEON Patient reports not being in a good mood today. He states that things had been going well until today when he had a negative interaction with staff early this morning but on elaboration is not clear what occurred. He remarks that the interview is not going well today. He becomes tearful and states that he wants to and does not feel he is getting better. He declines to participate in full cognitive exam. REVIEW OF SYSTEMS: As per HPI EXAM: 06/08/2025 8:09 AM Vital Signs Temperature 98.3 ??F (36.8 ??C) Heart Rate 104 Respiration 18 SpO2 96 % Blood Pressure 134/82 Neurological: Motor: no abnormal movements appreciated on exam; demonstrates spontaneous movements of all extremities Cognitive: Wakefulness/alertness: awake and alert Orientation: oriented to person/place/situation; states time as April Attention: attentive to conversation Memory: grossly intact Mental Status: Appearance: appears stated age, in hospital gown Behavior: good eye contact, calm, cooperative Mood: hopeless Affect: appropriately reactive, tearful at times, full range, stable Speech: normal rate/rhythm/tone/volume Thought process: linear, grossly organized Thought content and perceptions: endorses SI without clear plan; no HI/AVH; mild paranoia regardingcertain staff with delusional components Insight and judgment: limited/limited MEDICATIONS: Scheduled Meds:Scheduled Medications[1] Continuous Infusions:Infusions Meds[2] PRN Meds:.PRN Medications[3] DATA: Reviewed. ASSESSMENT: Carter Raymundo is a 69 y.o. male with past psych history of schizoaffective disorder on clozapine,past medical history of hypertension, CKD, oropharyngeal dysphagia c/b frequent aspiration now s/p PEG, drug-induced Parkinsonism, who presented from nursing facility with altered mental status with unresponsiveness and aphasia, now medically cleared. Psychiatry initially consulted for assistance with diagnostic clarification, with initial differential ddx of catatonia vs delirium/encephalopathy vs decompensated psychosis. On evaluation today, patient presentation significant for dysphoric mood and SI. He is generally appropriate and demonstrates good social comportment. Still with some intermittent though less frequent episodes of agitation overnight/bander and cellophaner machine helper managed effectively with Haldol. Not able to fully pa rticipate in cognitive exam, but not as clearly oriented or attentive as per previous examination. He is adherent to medication regimen and working with staff including PT who reports fair progress. Major barriers to move patient care forward has been delirium (resolved), agitation (improved, resolving), paranoia (improved, resolving). He would likely benefit from increase in clozapine for addressing ongoing paranoia and mood stabilization, as well as sedating properties when dosed at night. Wenote that bupropion is being held which may be contributing to low mood, however it carries its ownrisk of activation and worsening agitation; will attempt to address depressive symptoms with alternative methods at this time. Patient presentation currently consistent with acute psychosis in the setting of schizoaffective disorder, delirium and/or underlying neurocognitive disorder (not previously diagnosed per records). Presentation of altered mental status also similar to prior: catatonia was deemed unlikely given isolated symptom of mutism, intermittent stupor without muscle rigidity/waxy flexibility, and also the limited effect of benzodiazepines on clinical course. No structural intracranial abnormalities on imaging. Multiple EEGs demonstrate no seizure, findings more consistent with delirium but non-specific.Regarding psychiatric symptoms, he is paranoid, endorses delusions, has endorsed SI, made verbal thr eats to staff, does not have known AVH. Holding bupropion, lowering Sinemet dose as able to facilitate decrease in agitation which appears primarily related to psychosis at this time. Currently on previous home clozapine dose. Brother reports at baseline patient is relatively high-functioning, pleasant, not overtly paranoid. At this point, no concern for acute medical illness, and behavior seems primarily related to underlying schizoaffective disorder. Primary medical team has cleared patient for inpatient psychiatric bed placement. Weekly interdisciplinary meeting held 06/05 to discuss patient's recent behavior and dispo barriers.Addressing agitation and psychosis with scheduled clozapine, depakote, Haldol. For dispo, patient will need to demonstrate improvement in mobility (first actionable goal out of bed to chair), cooperation with care. HCP affirmed on 05/20 for substitute decision making. Patient on section 12 due to inability to care for self and acute risk of psychiatric decompensation, bed search in progress. DSM-5 DIAGNOSIS: Delirium (hypoactive, resolved) Schizoaffective disorder R/o unspecified neurocognitive disorder RECOMMENDATIONS: #LEGAL Patient remains on section 12, cannot leave AMA, bed search in progress Continue 1:1 sitter #MANAGEMENT Note last Qtc: 503 - 06/04 [place]; consider repeat EKG q2-3 days as able for monitoring of QTc Continue delirium precautions --> Emphasize strong diurnal cues including windows open during day, limit disruptions overnight, practice avoidance of deliriogenic drugs as possible, mobilize throughout the day as possible, optimize nutrition, ensure normal regular bowel movements, and treat pain to the extent possible Clozapine dosing: increase to 25mg qAM+175mg qHS F/u clozapine level C/w valproate solution 250mg PO TID Please continue efforts to ensure regular bowel movements while on clozapine with consistent documentation bowel movements C/w gabapentin dose to 100 mg qAM+300mg QHS Continue to hold Wellbutrin 100 mg TID Continue ramelteon 8 mg QHS Continue trazodone 150 mg QHS Please c/w standing Haldol to 1mg PO QD + 3mg PO QHS For mild/moderate agitation, offer haloperidol 2mg PO BID PRN May give Haldol 2 mg IM PRN for refractory acute agitation, monitoring closely for EPS; may repeat same dose if no response in 30 mins; would re-engage psychiatry if requiring multiple doses Please note benzodiazepines may worsen acute delirium Psychiatry will continue to follow Kimani Rivas MD Psychiatry PGY2 Psychiatric Consultation Liaison Service Please contact [phone] for overnight or weekend psychiatric emergencies. Case staffed with attending psychiatrist, Kymberly Mata MD. [1] acetaminophen, 1,000 mg, G-tube, Q8H CLAUDIA atorvaSTATin, 20 mg, G-tube, QHS [Held by provider] buPROPion, 100 mg, G-tube, TID cloZAPine, 150 mg, G-tube, QHS cloZAPine, 25 mg, G-tube, Daily enoxaparin, 40 mg, Subcutaneous, Q24H CLAUDIA famotidine, 20 mg, G-tube, BID gabapentin, 100 mg, G-tube, QAM gabapentin, 300 mg, G-tube, QHS haloperidoL, 1 mg, G-tube, Daily And haloperidoL, 3 mg, G-tube, QHS insulin regular, 0-12 Units, Subcutaneous, Q6H CLAUDIA ketoconazole, , Topical, BID lactulose, 20 g, G-tube, Daily lidocaine, 1 patch, Topical, Q24H lidocaine, 1 patch, Topical, Q24H multivitamin with minerals, 15 mL, G-tube, Daily sodium chloride, 3 mL, Intravenous, Q12H CLAUDIA polyethylene glycol, 17 g, G-tube, BID ramelteon, 8 mg, G-tube, QHS sennosides, 17.6 mg, G-tube, Daily tamsulosin, 0.4 mg, G-tube, QHS traZODone, 150 mg, G-tube, Nightly valproate, 250 mg, Oral, TID [2] [3] bisacodyl calcium carbonate dextrose oral gel OR dextrose 50% OR dextrose 50% OR glucagon (human recombinant) diclofenac sodium guaiFENesin haloperidoL iohexoL ipratropium-albuteroL Insert and Maintain Peripheral IV AND sodium chloride AND sodium chloride sodium chloride Cosigned by Kymberly Mata MD at 06/08/2025 11:07 PM EDT Associated attestation - Kymberly Mata MD - 06/08/2025 11:07 PM EDT I was present with the resident during the evans portions of the service. I discussed the case with the resident and agree with the findings and plan as documented in the resident's note with the following addendum: Pt seen later in the afternoon. Mood is initially brighter but he is becomes tearful when discussing his mood and suicidal thoughts, which he attributes to feeling hopeless. He states that he had a difficult night and did not sleep well. He acknowledges that he is experiencing some paranoia. He hasbeen attempting to read again and has three books at beside. He is able to complete MOYB and is overall more participatory on interview. He feels ready to work with PT this afternoon. Clinical impression c/w schizoaffective disorder and delirium, improving. He has been less irritable overall but still struggling with dysphoria with SI, paranoid thoughts and fluctuating cognitive status. Agree with plan to trial dose increase of clozapine to 25mg qAM + 175mg qHS. Most recent level on 175mg TDD is 324. Goal of treatment is to optimize mood and psychosis. Given that he continues to report SI, recommend continuing 1:1 observer and bed search for inpatient level of psychiatric care. Appreciate PT input to help with physical recovery. Additional recommendations as per Dr. Rivas's note. * Nelly León, RD - 06/08/2025 9:27 AM EDT NUTRITION FOLLOW UP NOTE SUBJECTIVE: Visited patient at bedside. Tube feeds off per cycled order. Unable to obtain detailed interview, though patient did state he was on the mend . OBJECTIVE: Height: 71 in Admit weight: 75.8 kg (bed, 04/17) Current weight: No updated weights Pertinent Meds: famotidine BID, RISS (not given), lactulose, liquid multi with minerals, Miralax BID, senna. Others noted. Recent Labs 06/08/25 0752 NA 143 K 4.3 CL 106 CO2 28 BUN 31* CREATININE 0.80 GLUCOSE 130* CALCIUM 8.7 MG 2.2 PHOS 2.9 Corrected Calcium: 9.66 Calculated using: - Calcium: 8.7 (06/08/2025) - Albumin: 2.8 (06/08/2025) Recent Labs 06/07/25 1157 06/07/25 1835 06/08/25 0600 06/08/25 1213 POCGLU 111* 102* 137* 132* Recent Labs 06/08/25 0752 ALT 14 AST 20 ALKPHOS 124 BILITOT 0.2 Food Allergies: NKFA Diet Order: NPO, ice chips, sips with meds Tube Feed Order: Glucerna 1.5 Sundar @ 75 mL/hr 16 hrs (6p-10a) (1800 kcal, 99 g protein, 911 mL free water) With 250 mL flushes q4h (+1440 mL) Total 2351 mL free water/day Access Type: PEG Pump Recall: pump cleared yesterday. GI/Abdomen: abdomen soft, rounded. LBM 06/07 Skin: No pressure injuries noted Extremities: No edema noted Nutrition Focused Physical Exam: Deferred ASSESSMENT: Estimated Nutrition Needs: Calories: 0263-6515 kcal (25-30 kcal/kg) Protein: 85-106 g (1.2-1.5 g/kg) Fluids: 2563-6666 mL (25-30 mL/kg) Estimated Needs Calculated Usin.9 kg (156 lb 4.9 oz) (weight at rehab) Specifics: 70 y.o. male with PMHx schizoaffective disorder, drug-induced parkinsonism, CKD, and PEG dependenceadmitted with delirium on psychiatric decompensation, later COVID+ with aspiration pneumonia, now stable on RA, awaiting cheli-psych placement. Nutrition following for tube feed management. Patient onclear liquids at time of previous RD assessment (x7 days ago), per SOLAR DESIGN ENGINEER/team now NPO as of 06/03 given high silent aspiration risk. Switched to cycled feeds 06/01 and continues to run at cycled goal. Noovert tolerance issues. Recommend continuing current regimen to provide 100% of estimated nutritionneeds. Patient with previous constipation on clozapine requiring aggressive bowel regimen, now with intermittent diarrhea with last BM 06/07. Continue to adjust bowel regimen PRN. No new weights takensince admission, strongly recommend obtaining new weight as able to ensure nutrition provisions remain appropriate. Labs/meds reviewed, BG's remain stable on carb steady formula. Lytes WNL. Interventions / Recommendations: Diet per team/SOLAR DESIGN ENGINEER Continue tube feeds at cycled goal: Glucerna 1.5 Sundar @ 75 mL/hr 16 hrs (6p-10a) (1800 kcal, 99 g protein, 911 mL free water) Bolus recs PRN: Glucerna 1.5 bolus total x5 cartons per day 480 mL x2, 240 mL x1 (provides equal nutrition provisions) Monitor lytes and replete PRN Monitor BG's- insulin regimen per team, adjust PRN Monitor BM's, GI fxn, adjust bowel regimen PRN Obtain new zeroed bed scale weight Nutrition to continue to follow, please message or page [phone] with any questions/concerns Signed by: Nelly León MS, RDN, LDN 06/08/25 2:51 PM * Patricia Holden MD - 06/08/2025 7:05 AM EDT [facility] Medicine Progress Note Patient: Carter Raymundo ( , 1955) Admission Date: 04/15/2025 PCP: Kilo Reyes Jr Amina Inpatient Attending: Feliciano Choi MD INTERVAL 24-hr events: - Requesting ice cream overnight - brief episode of dsat to 80 but self corrected without intervention - Behaviorally did well yesterday. AM Subjective: Doing well this morning. OBJECTIVE Vitals: T 97.4 ??F (36.3 ??C) HR (!) 100 BP 133/88 RR 16 SpO2 95 % O2 Device: None (Room air) Wt 75.8 kg (167 lb 1.7 oz) Body mass index is 23.31 kg/m??. General: NAD HEENT: anicteric sclerae, moist membranes Cardiac: RRR, no m/r/g, no JVD Pulm: CTAB, non-labored Abdomen: soft, NTND Extremities: no edema, warm Neuro: symmetric face, EOMI, fluent speech, moving all limbs Skin: rash and peeling skin noted on feet/ R calf. Labs and reports reviewed in the chart. Pertinent findings are noted in the A/P. ASSESSMENT/PLAN 70 y.o. male with PMHx schizoaffective disorder, drug-induced parkinsonism, CKD, and PEG dependenceadmitted with delirium on psychiatric decompensation, later COVID+ with aspiration pneumonia, now stable on RA, awaiting cheli-psych placement. ACTIVE ISSUES # Transient unresponsiveness # Schizoaffective disorder # Acute delirium Multiple transient unresponsiveness events; stroke and seizure workup negative (CTH, MRI brain, EEG). Likely acute delirium on background of decompensated schizoaffective disorder. Psychiatry managing clozapine titration and adjuncts; haloperidol for augmentation and agitation. Meets Section 12 criteria. He continues to have periods of minimal responsiveness to stimulation. - Psych following - weekly interdisciplinary meetings - c/w clozapine 25 mg qAM + 125 mg qhs, adjustment pending 06/03 trough - f/up psych recommendations. - c/w valproate 250mg TID - Standing haloperidol to 1mg qD + 3mg qHS - c/w trazodone 150 mg qhs - c/w ramelteon 8 mg qhs - HCP affirmed; cannot leave AMA # Oropharyngeal Dysphagia with G-Tube Dependence Pulled G-tube ??2 (replaced 05/12). Variable PO tolerance; aspiration risk high. - c/w overnight tube feeds; adjustments per nutrition. - NPO except for H2O with nursing 1:1 bedside. Will discuss with HCP PO for behavioral de-escalation, however, high risk of complication with aspiration/pneumonia and would recommend that he remain NPO given potential medical setback in psych placement. - SOLAR DESIGN ENGINEER consult if patient agreeable, limited by agitation/paranoia # Constipation / Diarrhea Hx severe stool burden on clozapine requiring aggressive bowel regimen; now with diarrhea intermittently. Responds well to mag citrate if refractory to other attempts. - adjust bowel reg pending stool output # Tinea corporis/pedis - topical ketoconazole cream to feet/calf. - If not improvement consider oral treatment, however, caution iso his mildly prolonged EKG. CHRONIC ISSUES # AHRF (resolved): i/s/o COVID/HAP s/p Remdesivir and HAP abx # Drug-induced Parkinsonism: Sinemet tapered and discontinued (05/28) # CAD: c/h atorvastatin # CKD: at baseline Cr # BPH: c/h tamsulosin # GERD: c/h famotidine CORE MEASURES - Access: PIV(s) - DVT ppx: Lovenox (patient intermittently refusing) - Code Status: Full Code - Contact/HCP: brother Delvin Raymundo [phone] - Dispo: cheli-psych placement, trial with PT -- Patricia Holden MD Resident, Internal Medicine Cosigned by Feliciano Choi MD at 06/08/2025 2:05 PM EDT Associated attestation - Feliciano Choi MD - 06/08/2025 2:05 PM EDT I have seen and examined Mr. Raymundo, reviewed the findings and plan of care as documented by Patricia Holden MD and agree, except for any additional comments below. 69M with a history of schizoaffective disorder c/b drug-induced parkinsonism, HTN, and oropharyngeal dysphagia s/p G-tube on TF who presented to [facility] on 04/15 with unresponsiveness, aphasia, and concern for L facial droop (stroke workup negative) c/f psychiatric decompensation. Course complicated by acute hypoxic respiratory failure 2/2 COVID pneumonia s/p remdesivir and dexamethasone, likely multifocal aspiration pneumonia, and severe mucous plugging (all resolved), and ongoing deconditioning. #Acute psychosis #Schizoaffective disorder. Evidence of ongoing paranoia, somatization (endorsing worsening abdominal pain which he attributes to me entering the room), and grandiosity (stating he pratibha genius). HCP affirmed 05/20 for surrogate decision-making, psychiatry following for medication management with clozapine, depakote, haldol, trazodone, and gabapentin. S12, 1:1 sitter, with ultimate plan for inpatient psychiatry placement when mobility improves. #Deconditioning: Currently has rehab-level needs, but psychiatric hospitalization remains the priority. #Drug induced parkinsonism: sinemet #Dysphagia s/p PEG: TF; patient frequently asking for PO, agree with discussion with HCP as he is ongoing high risk for aspiration and I favor minimizing oral intake unless he can be further evaluated by SOLAR DESIGN ENGINEER with VFSS/FEES. I spent 40 minutes in this clinical encounter reviewing the medical record, seeing and examining the patient, placing orders, writing notes, performing signout, and communicating with the applicable medical and nursing teams. Feliciano Choi MD Section of Hospital Medicine [facility] * Ammon Low MD PhD - 06/07/2025 7:22 AM EDT [facility] Medicine Progress Note Patient: Carter Raymundo ( , 1955) Admission Date: 04/15/2025 PCP: Kilo Huynh Inpatient Attending: Mariano Maloney MD INTERVAL 24-hr events: - Yesterday: no acute events - Overnight: active SI, verbally and nutritionally de-escalated (warm walk provided), ntd per psych AM Subjective: Feeling very well this morning. No acute complaints. Hoping to work with PT and knows that will help progress his care in the hospital. States have BMs have been normal recently. OBJECTIVE Vitals: T 97.6 ??F (36.4 ??C) HR 82 BP 128/78 RR 16 SpO2 98 % 3 L/min O2 Device: None (Room air) Wt 75.8 kg (167 lb 1.7 oz) Body mass index is 23.31 kg/m??. General: NAD HEENT: anicteric sclerae, moist membranes Cardiac: RRR, no m/r/g, no JVD Pulm: CTAB, non-labored Abdomen: soft, NTND Extremities: no edema, warm Neuro: symmetric face, EOMI, fluent speech, moving all limbs Skin: exposed skin w/o rashes/lesions Labs and reports reviewed in the chart. Pertinent findings are noted in the A/P. ASSESSMENT/PLAN 70 y.o. male with PMHx schizoaffective disorder, drug-induced parkinsonism, CKD, and PEG dependenceadmitted with delirium on psychiatric decompensation, later COVID+ with aspiration pneumonia, now stable on RA, awaiting cheli-psych placement. ACTIVE ISSUES # Transient unresponsiveness # Schizoaffective disorder # Acute delirium Multiple transient unresponsiveness events; stroke and seizure workup negative (CTH, MRI brain, EEG). Likely acute delirium on background of decompensated schizoaffective disorder. Psychiatry managing clozapine titration and adjuncts; haloperidol for augmentation and agitation. Meets Section 12 criteria. He continues to have periods of minimal responsiveness to stimulation. - Psych following - weekly interdisciplinary meetings - c/w clozapine 25 mg qAM + 125 mg qhs, adjustment pending 06/03 trough - c/w valproate 250mg TID - Standing haloperidol to 1mg qD + 3mg qHS - c/w trazodone 150 mg qhs - c/w ramelteon 8 mg qhs - HCP affirmed; cannot leave AMA # Oropharyngeal Dysphagia with G-Tube Dependence Pulled G-tube ??2 (replaced 05/12). Variable PO tolerance; aspiration risk high. - c/w overnight tube feeds; adjustments per nutrition. - SOLAR DESIGN ENGINEER consult if patient agreeable, limited by agitation/paranoia # Constipation / Diarrhea Hx severe stool burden on clozapine requiring aggressive bowel regimen; now with diarrhea intermittently. - adjust bowel reg pending stool output # Tinea corporis/pedis - topical ketoconazole cream to feet/calf. - If not improvement consider oral treatment, however, caution iso his mildly prolonged EKG. CHRONIC ISSUES # AHRF (resolved): i/s/o COVID/HAP s/p Remdesivir and HAP abx # Drug-induced Parkinsonism: Sinemet tapered and discontinued (05/28) # CAD: c/h atorvastatin # CKD: at baseline Cr # BPH: c/h tamsulosin # GERD: c/h famotidine CORE MEASURES - Access: PIV(s) - DVT ppx: Lovenox (patient intermittently refusing) - Code Status: Full Code - Contact/HCP: brother Delvin Raymundo [phone] - Dispo: cheli-psych placement, trial with PT -- Ammon Low MD PhD Resident, Internal Medicine Cosigned by Mariano Maloney MD at 06/07/2025 2:54 PM EDT Associated attestation - Mariano Maloney MD - 06/07/2025 2:54 PM EDT I have seen and examined the patient today, and I reviewed available laboratory, report, and imaging data. I have reviewed the plan of care as documented by Ammon Low MD PhD and agree, with the exception of any modifications or additions below. Mr Raymundo is a 69 year old man with schizoaffective disorder, drug induced parkinsonism, who presented with unresponsiveness found to have acute hypoxic respiratory failure, COVID, bibasilar pneumonia concerning for aspiration, who has completed antibiotics and now off precautions for COVID. After clinical stabilization, patient remains admitted for deconditioning and ongoing inpatient psychiatric treatment for acute psychosis. #Acute Psychosis in setting of #Schizoaffective disorder. Absent capacity with HCP activation, psychiatry consultation guiding medication management with clozapine, depakote, haldol, trazodone, and gabapentin. Maintain 1:1. Ultimate disposition remains inpatient psychiatry; however, #physical deconditioning remains a barrier. #Physical Deconditioning - PT; though patient also would seem to have rehab- level needs, it is morelikely that his physical conditioning will improve before he becomes psychiatrically appropriate for STR. #Metabolic encephalopathy - resolved, felt secondary to aspiration, possibly centrally acting medications. Psychosis remains, as above. #COVID 19, resolved. Initial positive 05/24/25, completed remdesevir and dexamethasone given hypoxemia; precautions removed 06/03/25. #Drug induced parkinsonism - sinemet. #Dysphagia s/p PEG - TF Mariano Maloney MD Section of Hospital Medicine [facility] * Param Mg, PT - 06/06/2025 2:11 PM EDT PHYSICAL THERAPY PROGRESS NOTE Rehabilitation Services - Inpatient Physical Therapy Level of Care: Floor Interdisciplinary Recommendations PT Discharge rec: Pending pysch recommendations Activity and Mobility Recommendations: [x]Patient is at high risk for deconditioning. Please maximize independence in ADLs and encourage frequent mobility including: Lift for all mobility including transfers to chair 3x/day [x]Patient is at risk for falls. Please use chair alarm when out of bed. [x]Patient is at risk for delirium. Please consider implementing strategies to reduce risk including: OOB to chair 3 day for all meals Familiar pictures and items within view News or nonverbal music on during daytime Lights on during day with shades UP Frequent Reorientation to clock, calendar, and window Encourage participation with ADLs Encourage family presence at bedside *For questions please check the patient???s care team for the most updated PT contact information [x]Updated medical status including labs, radiology, procedures and medications since previous visit reviewed Subjective: My finger nails are too long I am not going to be able to continue. Patient-Stated Goal: I want to get stronger Objective: Hemodynamic Response/Aerobic Capacity HR BP RR O2 RPE/FLYNN REST Supine 88 126/77 Sit Stand ACTIVITY RECOVERY Rhythm: NSR Functional Mobility Bed Mobility: Supine to Sit: Minimal assistance Adaptive Equipment: HOB elevated, Side rails Sit to Supine: Minimal assistance Transfers: Sit to Stand: Moderate assistance, performed 4x partial sit to stands throughout session, achievingroughly ~75% of upright positioning Stand to Sit: Moderate assistance Transfer aid: Walker Gait Belt Used For Transfers: Yes Gait: Activity does not occur Balance: Sitting - Static: Supervision Sitting - Dynamic: Contact guard Standing - Static: Moderate assistance, With assistive device Standing - Dynamic: Activity does not occur Balance Interventions: Standing with manual challenges, Standing reaching activities, Weight shifting Pain: 0/10 at rest. Too difficult to say /10 with activity. 0/10 at recovery. Location: R shoulder Quality: sore Intervention: repositioning notified RN Limiting Symptoms: Fatigue, self limiting Other Tests and Measures: Cognition: Level of Consciousness: Alert Orientation Level: Oriented X4 Oriented to: Name, Date of , Date, Month, Year, Place, Name of hospital Following Directions: Follows all directions without difficulty Success rate following directions: 100% of the time Patient Behaviors/Mood: Impulsive, Agitated Memory: Decreased recall of recent events (Incorrectly recalls previous session) Attention to Tasks: Attends to tasks with cues Safety Awareness: Decreased awareness of safety precautions, Decreased awareness of deficits, Decreased awareness of need for assistance Insight: Impaired Intervention: Therapeutic activities Functional mobility training Patient/Caregiver Education RE: []Role of PT [x]PT plan of care [x]Fall risk reduction [x]Discharge recommendations [x]Mobility Recommendations []Other: []Silver Solderer utilized for session Team Communication: Communicated with [x]RN []MD []OT []CM RE: Patient status []Patient discussed at interdisciplinary team rounds. Pt left seated with all needs in reach with sitter present Assessment Clinical Impression: Carter Raymundo is a 70 y.o. male with a a history of HTN, CKD, schizoaffective disorder, and drug-induced parkinsonism who presents to physical therapy during hospitalization for stroke versus TME, but with unremarkable workup. Now medically stable pending inpatient psych placement for decompensated schizoaffective disorder Pt continues to well below baseline limited by impairments in body structure and function as listedabove. Pt???s primary impairment/activity limitation is functional mobility (bed mobility, sit to stand transfer, and impaired sitting/standing dynamic balance) which is likely due to deconditioning 2/2 prolonged hospitalization and AMS. Patient currently waiting for inpatient psych bed. Acute PT will continue to follow and progress pttowards rehab goals as appropriate. Treatment Plan: Balance training, Bed mobility, Gait training/stairs, Exercise prescription, Therapeutic Exercise, Transfer training Patient agrees with the above goals and is willing to participate in the rehabilitation program: Yes Time: 0790-4751 Physical Therapist Name: [place] [id number] Physical Therapist Pager: [phone] * Patricia Holden MD - 06/06/2025 7:51 AM EDT [facility] Medicine Progress Note Patient: Carter Raymundo ( , 1955) Admission Date: 04/15/2025 PCP: Kilo Baileyiams Inpatient Attending: Mariano A Minor, MD INTERVAL 24-hr events: Very agitated overnight, requesting his haldol Rash AM Subjective: Carter is feeling fairly well this morning. Noted by the one-to-one sitter that he seems to be morerelaxed and less agitated. He notes that the rash on his leg is pretty itchy but not painful. He expressed displeasure with one of the nurses, seems to be because she is not romantically interested in him. Later in the day he was noted to be very agitated by nursing and required another as needed 2mg Haldol, with some concern for mildly prolonged QTc but unable to obtain a EKG prior to Haldol administration psychiatry who saw him this morning and do not recommend adjustments to his evening medications at this point in time. OBJECTIVE Vitals: T 98.6 ??F (37 ??C) HR (!) 91 BP 134/80 RR 20 SpO2 100 % 3 L/min O2 Device: None (Room air) Wt 75.8 kg (167 lb 1.7 oz) Body mass index is 23.31 kg/m??. General: NAD, more interactive. HEENT: anicteric sclerae, moist membranes Cardiac: RRR, no m/r/g, no JVD Pulm: CTAB, non-labored. Abdomen: soft, NTND Extremities: no edema, warm, no tremor Neuro: symmetric face, EOMI, fluent speech, moving all limbs. Some tremors at rest noted in hands on 8/13 am. Skin: rash on his right calf and bilaterally feet with pealing. Onchomychosis on toes. Psych: see hpi Labs and reports reviewed in the chart. Pertinent findings are noted in the A/P. ASSESSMENT/PLAN 70 y.o. male with PMHx HTN, CKD, schizoaffective disorder, and drug-induced parkinsonism, who initially presented with unresponsiveness, asphaia, and possible left facial droop concerning for stroke versus TME, but with unremarkable workup. Admitted to medicine for monitoring and re-initiation of cl ozapine dosing, now medically stable pending inpatient psych placement for decompensated schizoaffective disorder. ACTIVE ISSUES # Transient unresponsiveness # Schizoaffective disorder # Acute delirium Multiple transient unresponsiveness events; stroke and seizure workup negative (CTH, MRI brain, EEG). Likely acute delirium on background of decompensated schizoaffective disorder. Psychiatry managing clozapine titration and adjuncts; haloperidol for augmentation and agitation. Meets Section 12 criteria. He continues to have periods of minimal responsiveness to stimulation. - Psych following - PT - 2 assist to stand. - weekly interdisciplinary meetings Fridays at 1400 - Psych to f/up Clozapine level in the am 06/03 with potential recs for adjustment. - c/w clozapine 25 mg qAM + 125 mg qhs - c/w valproate 250mg TID - Standing haloperidol to 1mg qD + 3mg qHS - c/w trazodone 150 mg qhs - c/w ramelteon 8 mg qhs - HCP affirmed; cannot leave AMA # AHRF (resolved) # COVID s/p remdesivir/dex # LLL PNA COVID positive (05/24) with new LLL consolidation; initially hypoxic with tachycardia. C/f for mucus plugging previously during acute hypoxic events. MRSA swab negative; improved with remdesivir, cefepime and dexamethasone. High aspiration risk. - s/p remdesivir 05/24-05/28 (off precautions 06/03) - s/p dexamethasone 05/27-05/30 - s/p cefepime 05/27-06/02 with 1 dose levaquin 06/04 to complete course. - d/c standing nebs, made prn - De-escalate labs # hypernatremia (resolved) - Improved with PO fluids and increased free water flushes. # Oropharyngeal Dysphagia with G-Tube Dependence # abdominal pain Pulled out G-tube twice; replaced 05/12. At risk for aspiration; tolerating some PO liquids with nursing monitoring. Noted some abdominal pain on 06/02, likely in the setting of change to cyclic feeds per nutrition the night prior. Discussions with nutrition demonstrated fluctuating ability to tolerate p.o., and inconsistent swallow study results. At this time recommend primarily n.p.o. with water with one-to-one nursing bedside. - c/w overnight tube feeds; adjustments per nutrition. - SOLAR DESIGN ENGINEER consult if patient agreeable, limited by agitation/paranoia # Constipation / Diarrhea Hx severe stool burden on clozapine requiring aggressive bowel regimen; now with diarrhea intermittently. - adjust bowel reg pending stool output - Large BM 06/05 # Sinus Tachycardia Stable sinus tachycardia 90-100s. Will monitor. # Tinea corporis/pedis - topical ketoconazole cream to feet/calf. - If not improvement consider oral treatment, however, caution iso his mildly prolonged EKG. CHRONIC ISSUES # Drug-induced Parkinsonism: Sinemet tapered and discontinued (05/28) - Continuing reduced dose Sinemet as above; d/c on 05/28 # CAD: c/h atorvastatin # CKD: at baseline Cr # BPH: c/h tamsulosin # GERD: c/h famotidine CORE MEASURES - Access: PIV(s) - DVT ppx: Lovenox (patient intermittently refusing) - Code Status: Full Code - Contact/HCP: brother Delvin Raymundo [phone] - Dispo: cheli-psych placement, trial with PT -- Patricia Holden MD Resident, Internal Medicine Cosigned by Mariano Maloney MD at 06/06/2025 6:38 PM EDT Associated attestation - Mariano Maloney MD - 06/06/2025 6:38 PM EDT I have seen and examined the patient today, and I reviewed available laboratory, report, and imaging data. I have reviewed the plan of care as documented by Patricia Holden MD and agree, with the exception of any modifications or additions below. Mr Raymundo is a 69 year old man with schizoaffective disorder, drug induced parkinsonism, who presented with unresponsiveness found to have acute hypoxic respiratory failure, COVID, bibasilar pneumonia concerning for aspiration, who has completed antibiotics and now off precautions for COVID. After clinical stabilization, patient remains admitted for deconditioning and ongoing inpatient psychiatric treatment for acute psychosis. #Acute Psychosis in setting of #Schizoaffective disorder. Absent capacity with HCP activation, psychiatry consultation guiding medication management with clozapine, depakote, haldol, trazodone, and gabapentin. Maintain 1:1. Ultimately disposition remains inpatient psychiatry; however, physical deconditioning remains a barrier. #Metabolic encephalopathy - resolved, felt secondary to aspiration, possibly centrally acting medications. #COVID 19, resolved. Initial positive 05/24/25, completed remdesevir and dexamethasone given hypoxemia; precautions removed 06/03/25. #Drug induced parkinsonism - sinemet. #Dysphagia s/p PEG - TF Mariano Maloney MD Section of Hospital Medicine [facility] * Nilam Weinberg RN - 06/05/2025 4:57 PM EDT Case Management - Progress Note Patient: Carter Raymundo : 1955 Attending: Urban Mondragon MD Admit Date: 04/15/2025 Inpatient Status Admit Date: 04/16/25 Primary Care Physician: Kilo Huynh Discussed at [facility]. MANJIT: Pending IP [facility] Psych Bed: On list Dispo: Inpatient psych hospital/unit CM to continue to follow. Nilam Weinberg RN 06/05/2025 * Yogi Blevins, PT - 06/05/2025 2:30 PM EDT PHYSICAL THERAPY PROGRESS NOTE Rehabilitation Services - Inpatient Physical Therapy Level of Care: Floor Interdisciplinary Recommendations PT Discharge rec: Pending sch recommendations Activity and Mobility Recommendations: [x]Patient is at high risk for deconditioning. Please maximize independence in ADLs and encourage frequent mobility including: Lift for all mobility including transfers to chair 3x/day [x]Patient is at risk for falls. Please use chair alarm when out of bed. [x]Patient is at risk for delirium. Please consider implementing strategies to reduce risk including: OOB to chair 3 day for all meals Familiar pictures and items within view News or nonverbal music on during daytime Lights on during day with shades UP Frequent Reorientation to clock, calendar, and window Encourage participation with ADLs Encourage family presence at bedside *For questions please check the patient???s care team for the most updated PT contact information [x]Updated medical status including labs, radiology, procedures and medications since previous visit reviewed Subjective: You have a calming voice Patient-Stated Goal: Stand to get stronger Objective: Hemodynamic Response/Aerobic Capacity HR BP RR O2 RPE/FLYNN REST Supine 90 116/80 Sit Stand ACTIVITY RECOVERY Rhythm: NSR Functional Mobility Bed Mobility: Supine to Sit: Minimal assistance Adaptive Equipment: HOB elevated, Side rails Sit to Supine: Minimal assistance Transfers: Sit to Stand: Moderate assistance, (patient completed x2 STS throughout session, initially able to get 100% of full stand, 2nd attempt able to achieve ~75% fully upright) Stand to Sit: Moderate assistance Transfer aid: Walker Gait Belt Used For Transfers: Yes Gait: Activity does not occur Balance: Sitting - Static: Supervision Sitting - Dynamic: Contact guard Standing - Static: Moderate assistance, With assistive device Standing - Dynamic: Activity does not occur Balance Interventions: Standing with manual challenges, Standing reaching activities, Weight shifting Pain: 0/10 at rest. Yes /10 with activity. Yes /10 at recovery. Location: R shoulder Quality: sore Intervention: repositioning notified RN Limiting Symptoms: Pain, Fatigue Other Tests and Measures: Cognition: Level of Consciousness: Alert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 perceptions: does not report SI/HI/AVH; reports desire to unknown person Cong , 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 ASSESSMENT: Carter Raymundo is a 69 y.o. male with past psych history of schizoaffective disorder on clozapine,past medical history of hypertension, CKD, oropharyngeal dysphagia c/b frequent aspiration now s/p PEG, drug-induced Parkinsonism, who presented from nursing facility with altered mental status with unresponsiveness and aphasia, now medically cleared. Psychiatry initially consulted for assistance with diagnostic clarification, with initial differential ddx of catatonia vs delirium/encephalopathy vs decompensated psychosis. On evaluation today, patient presentation improved in terms of agitation, irritability, paranoia. Mood and affect much improved, with potential signs of some over-familiarity with some staff, mild grandiosity. 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 Cognition intact on limited exam, does not appear delirious. Major barriers to move patient care forward has been delirium (resolved), agitation (improved, resolving), paranoia (improved, resolving). Patient presentation currently consistent with acute psychosis in the setting of schizoaffective disorder, delirium and/or underlying neurocognitive disorder (not previously diagnosed per records). Presentation of altered mental status also similar to prior: catatonia was deemed unlikely given isolated symptom of mutism, intermittent stupor without muscle rigidity/waxy flexibility, and also the limited effect of benzodiazepines on clinical course. No structural intracranial abnormalities on imaging. Multiple EEGs demonstrate no seizure, findings more consistent with delirium but non-specific.Regarding psychiatric symptoms, he is paranoid, endorses delusions, has endorsed SI, made verbal thr eats to staff, does not have known AVH. Holding bupropion, lowering Sinemet dose as able to facilitate decrease in agitation which appears primarily related to psychosis at this time. Currently on previous home clozapine dose. Brother reports at baseline patient is relatively high-functioning, pleasant, not overtly paranoid. At this point, no concern for acute medical illness, and behavior seems primarily related to underlying schizoaffective disorder. Primary medical team has cleared patient for inpatient psychiatric bed placement. Weekly interdisciplinary meeting held 05/22 to discuss patient's recent behavior and dispo barriers. Addressing agitation and psychosis with scheduled clozapine, depakote, Haldol. For dispo, patient will need to demonstrate improvement in mobility (first actionable goal out of bed to chair), cooperation with care. HCP affirmed on 05/20 for substitute decision making. Patient on section 12 due to inability to care for self and acute risk of psychiatric decompensation, bed search in progress. DSM-5 DIAGNOSIS: Delirium (hypoactive, resolved) Schizoaffective disorder R/o unspecified neurocognitive disorder RECOMMENDATIONS: #LEGAL Patient remains on section 12, cannot leave AMA, bed search in progress Continue 1:1 sitter #MANAGEMENT Note last Qtc: 503 - 06/04 Uri; consider repeat EKG q2-3 days as able for monitoring of QTc Continue delirium precautions --> Emphasize strong diurnal cues including windows open during day, limit disruptions overnight, practice avoidance of deliriogenic drugs as possible, mobilize throughout the day as possible, optimize nutrition, ensure normal regular bowel movements, and treat pain to the extent possible Clozapine dosing: c/w 25mg qAM+150mg qHS F/u clozapine level C/w depakote 250mg qAM + 500mg qHS --> reasonable to transition from sprinkles to liquid formulation Please continue efforts to ensure bowel movement while on clozapine with consistent documentation bowel movements (last large BM 06/02) C/w gabapentin dose to 100 mg qAM+300mg QHS Continue to hold Wellbutrin 100 mg TID Continue ramelteon 8 mg QHS Continue trazodone 150 mg QHS Please increase standing Haldol to 1mg PO QD + 3mg PO QHS For mild/moderate agitation, offer haloperidol 2mg PO BID PRN May give Haldol 2 mg IM PRN for refractory acute agitation, monitoring closely for EPS; may repeat same dose if no response in 30 mins; would re-engage psychiatry if requiring multiple doses Please note benzodiazepines may worsen acute delirium Psychiatry will continue to follow Kimani Rivas MD PGY2, Department of Psychiatry Psychiatry Consultation-Liaison Service Please page [phone] overnight for any questions or concerns regarding acute psychiatric emergencies. [1] acetaminophen, 1,000 mg, G-tube, Q8H CLAUDIA atorvaSTATin, 20 mg, G-tube, QHS [Held by provider] buPROPion, 100 mg, G-tube, TID cloZAPine, 150 mg, G-tube, QHS cloZAPine, 25 mg, G-tube, Daily enoxaparin, 40 mg, Subcutaneous, Q24H CLAUDIA famotidine, 20 mg, G-tube, BID gabapentin, 100 mg, G-tube, QAM gabapentin, 300 mg, G-tube, QHS haloperidoL, 1 mg, G-tube, Daily And haloperidoL, 2 mg, G-tube, QHS insulin regular, 0-12 Units, Subcutaneous, Q6H CLAUDIA lactulose, 20 g, G-tube, Daily lidocaine, 1 patch, Topical, Q24H lidocaine, 1 patch, Topical, Q24H multivitamin with minerals, 15 mL, G-tube, Daily sodium chloride, 3 mL, Intravenous, Q12H CLAUDIA polyethylene glycol, 17 g, G-tube, BID ramelteon, 8 mg, G-tube, QHS sennosides, 17.6 mg, G-tube, Daily tamsulosin, 0.4 mg, G-tube, QHS traZODone, 150 mg, G-tube, Nightly valproate, 250 mg, Oral, TID [2] [3] bisacodyl calcium carbonate dextrose oral gel OR dextrose 50% OR dextrose 50% OR glucagon (human recombinant) guaiFENesin haloperidoL iohexoL ipratropium-albuteroL Insert and Maintain Peripheral IV AND sodium chloride AND sodium chloride sodium chloride Cosigned by Kymberly Mata MD at 06/08/2025 10:58 PM EDT * Patricia Holden MD - 06/04/2025 6:52 AM EDT [facility] Medicine Progress Note Patient: Carter Raymundo ( , 1955) Admission Date: 04/15/2025 PCP: [facility] Inpatient Attending: Urban Mondragon MD INTERVAL 24-hr events: Able to do PT yesterday - stood with 2 assist. 4:59 AM pt c/o 05/31 chest pain and paranoia, obtained EKG with sinus rhythm, unchanged from prior - Transitioned back to strict NPO, with water allowed with nursing bedside. AM Subjective: Angry/agitated this morning. Pulling at the IV pole, asking for a phone so he can call security to report his medical team. Still stating SI. OBJECTIVE Vitals: T 98.5 ??F (36.9 ??C) HR 90 BP (!) 150/84 RR 18 SpO2 93 % 3 L/min O2 Device: None (Room air) Wt 75.8 kg (167 lb 1.7 oz) Body mass index is 23.31 kg/m??. General: NAD, more interactive. HEENT: anicteric sclerae, moist membranes Cardiac: RRR, no m/r/g, no JVD Pulm: CTAB, non-labored. Abdomen: soft, NTND Extremities: no edema, warm Neuro: symmetric face, EOMI, fluent speech, moving all limbs. Some tremors at rest noted in hands on 8/13 am. Skin: exposed skin w/o rashes/lesions Psych: see hpi Labs and reports reviewed in the chart. Pertinent findings are noted in the A/P. ASSESSMENT/PLAN 70 y.o. male with PMHx HTN, CKD, schizoaffective disorder, and drug-induced parkinsonism, who initially presented with unresponsiveness, asphaia, and possible left facial droop concerning for stroke versus TME, but with unremarkable workup. Admitted to medicine for monitoring and re-initiation of cl ozapine dosing, now medically stable pending inpatient psych placement for decompensated schizoaffective disorder. ACTIVE ISSUES # Transient unresponsiveness # Schizoaffective disorder # Acute delirium Multiple transient unresponsiveness events; stroke and seizure workup negative (CTH, MRI brain, EEG). Likely acute delirium on background of decompensated schizoaffective disorder. Psychiatry managing clozapine titration and adjuncts; haloperidol for augmentation and agitation. Meets Section 12 criteria. He continues to have periods of minimal responsiveness to stimulation. - Psych following - weekly interdisciplinary meetings Fridays at 1400 - Psych to f/up Clozapine level in the am 06/03 with potential recs for adjustment. - c/w clozapine 25 mg qAM + 125 mg qhs - c/w valproate 250mg TID - Standing haloperidol to 1mg qD + 2mg qHS - c/w trazodone 150 mg qhs - c/w ramelteon 8 mg qhs - HCP affirmed; cannot leave AMA - Psych placement partially limited by his inability to tolerate PT, psych w plan to titrate medications to hopefully facilitate amenability to PT. # AHRF (resolved) # COVID s/p remdesivir/dex # LLL PNA COVID positive (05/24) with new LLL consolidation; initially hypoxic with tachycardia. C/f for mucus plugging previously during acute hypoxic events. MRSA swab negative; improved with remdesivir, cefepime and dexamethasone. High aspiration risk. - s/p remdesivir 05/24-05/28 (off precautions 06/03) - s/p dexamethasone 05/27-05/30 - s/p cefepime 05/27-06/02 with 1 dose levaquin 06/04 to complete course. - d/c standing nebs, made prn # hypernatremia (resolved) - Improved with PO fluids and increased free water flushes. # Oropharyngeal Dysphagia with G-Tube Dependence # abdominal pain Pulled out G-tube twice; replaced 05/12. At risk for aspiration; tolerating some PO liquids with nursing monitoring. Noted some abdominal pain on 06/02, likely in the setting of change to cyclic feeds per nutrition the night prior. Discussions with nutrition demonstrated fluctuating ability to tolerate p.o., and inconsistent swallow study results. At this time recommend primarily n.p.o. with water with one-to-one nursing bedside. - c/w overnight tube feeds; adjustments per nutrition. - SOLAR DESIGN ENGINEER consult if patient agreeable,limited by agitation/paranoia # Constipation / Diarrhea Hx severe stool burden on clozapine requiring aggressive bowel regimen; now with diarrhea intermittently. - adjust bowel reg pending stool output # Sinus Tachycardia Stable sinus tachycardia 90-100s. Will monitor. CHRONIC ISSUES # Drug-induced Parkinsonism: Sinemet tapered and discontinued (05/28) - Continuing reduced dose Sinemet as above; d/c on 05/28 # CAD: c/h atorvastatin # CKD: at baseline Cr # BPH: c/h tamsulosin # GERD: c/h famotidine CORE MEASURES - Access: PIV(s) - DVT ppx: Lovenox (patient intermittently refusing) - Code Status: Full Code - Contact/HCP: brother Delvin Raymundo [phone] - Dispo: cheli-psych placement, trial with PT -- Patricia Holden MD Resident, Internal Medicine Cosigned by Urban Mondragon MD at 06/04/2025 12:23 PM EDT Associated attestation - Urban Mondragon MD - 06/04/2025 12:23 PM EDT I have seen and examined the patient, reviewed the findings and plan of care as documented by Dr. Holden and agree, except for any additional comments below. This is a 69 yo M with hx of schizoaffective disorder, drug induced parkinsonism, who presented with unresponsiveness found to have acute hypoxic respiratory failure, COVID, bibasilar pneumonia concerning for aspiration, who has completed antibiotics and now off precautions for COVID. Medically stable. 24 hr events: patient pleasant and cooperative this AM, feels disturbingly good . Worked with PT yesterday. #Schizoaffective disorder #Metabolic encephalopathy, delirium #COVID/sepsis/acute hypoxic respiratory failure/bibasilar mucous plugging concerning for aspirationpneumonia #s/p PEG #Hypernatremia #Drug induced parkinsonism A/P #Schizoaffective disorder: has paranoia, no capacity, appreciate psych recs, continue with clozapine 25/150mg, depakote 250/500mg liquid formulation, haldol 1mg qAM and 2mg qhs, trazodone 150mg qhs, gabapentin 100mg/300mg, PRN haldol IM for acute agitation. Improving mental status, A&Ox3. On , HCP activated. QTC 471 on 05/31. Follow up clozapine level. On 06/03 expressed SI without plan, continue 1:1, appreciate psych recs, plan for Sunday meeting to discuss dispo. Worked with PT on 06/03 - two assist to stand. #Metabolic encephalopathy - resolved: presented with AMS, initial code stroke called, CT head without contrast neg. EEG without evidence of seizure. Had MOTOR ROUTE CARRIER on 05/27 for unresponsiveness and hypoxemia likely due to aspiration. A component of delirium as well given medical comorbidities. Low thresholdto hold clozapine/depakote/gabapentin if unresponsive or increased somnolence. Overall improved, alert and awake, interactive. #COVID/aspiration pneumonia/acute hypoxic respiratory failure - resolved: COVID positive on 05/24, fever to 101.5, completed remdesivir, on dex due to O2 requirement since 05/27. Satting well on RA, discontinued dex 05/31 as patient is on RA. CTA showing bibasilar mucous plugging likely due to aspiration, s/p cefepime and vanc, completed cefepime for 7 day course on 06/02. Advanced diet to thin liquidson 05/30, however remains high aspiration risk and SOLAR DESIGN ENGINEER felt aspiration is silent and clinical assessment has little utility, will need video swallow which is largely limited by mental status and this assessment can be continued in the outpatient setting. COVID precautions removed on 06/03. #Hypernatremia - resolved: increase free water flush, likely due to limited po intake, resolved as of 06/01. #Drug induced parkinsonism: s/p sinemet #Dysphagia s/p G tube: Continue on TF with FWF. I spent 45 minutes directly and personally assessing the patient by, but not limited to, obtaining a history; examining the patient; reviewing data; making decisions for treatment, evaluation of patient's response to treatment; documentation of findings; and discussions with other members of the care team. * Demetra Hawkins, PT - 06/03/2025 4:57 PM EDT PHYSICAL THERAPY PROGRESS NOTE Rehabilitation Services - Inpatient Physical Therapy Level of Care: Floor Interdisciplinary Recommendations PT Discharge rec: (pending pysch recs) Movement Precautions: WB Status: Activity and Mobility Recommendations: [x]Patient is at high risk for deconditioning. Please maximize independence in ADLs and encourage frequent mobility including: Lift for all mobility including transfers to chair 3x/day []Patient is at risk for pressure injury. Please limit sitting time to one hour on standard air cushion given patient???s inability to effectively reposition in chair. [x]Patient is at risk for falls. Please use chair alarm when out of bed. [x]Patient is at risk for delirium. Please consider implementing strategies to reduce risk including: OOB to chair 3 day for all meals Familiar pictures and items within view News or nonverbal music on during daytime Lights on during day with shades UP Frequent Reorientation to clock, calendar, and window Encourage participation with ADLs Encourage family presence at bedside *For questions please check the patient???s care team for the most updated PT contact information [x]Updated medical status including labs, radiology, procedures and medications since previous visit reviewed Subjective: I want to try really hard for you guys Patient-Stated Goal: to stand. Agreeable to PT session Objective: Hemodynamic Response/Aerobic Capacity VSS and monitored throughout session. Patient asymptomatic throughout. Relevant cardiac medications reviewed per EMR Functional Mobility Bed Mobility: Supine to Sit: Minimal assistance Adaptive Equipment: HOB elevated, Side rails Sit to Supine: Minimal assistance Transfers: Sit to Stand: Moderate assistance, 2 person (patient completing x2 STS throughout session, obtaining ~75% of full stand) Stand to Sit: Moderate assistance, 2 person Transfer aid: Walker Gait Belt Used For Transfers: Yes Gait: Ambulation Assistance: Activity does not occur Balance: Sitting - Static: Supervision Sitting - Dynamic: Contact guard Standing - Static: Moderate assistance, With assistive device Standing - Dynamic: Activity does not occur Balance Interventions: Standing with manual challenges, Standing reaching activities, Weight shifting Pain: 0/10 at rest. Unable to quantify however notes increased lumbar pain with activity. 7/10 at recovery. Location: lumbar Quality: ache Intervention: repositioning ice/hot pack provided educated on non-pharmacological pain management techniques Limiting Symptoms: Pain Other Tests and Measures: Cognition: Level of Consciousness: Alert Orientation Level: Oriented X4 Oriented to: Name, Date of , Date, Month, Year, Place, Name of hospital Following Directions: Follows all directions without difficulty Success rate following directions: 100% of the time Patient Behaviors/Mood: Appropriate, Cooperative, Pleasant, Impulsive Memory: Decreased recall of recent events Attention to Tasks: Attends to tasks with cues Safety Awareness: Decreased awareness of need for assistance, Decreased awareness of errors Insight: Impaired Problem Solving: Assistance required to identify errors made Intervention: Therapeutic activities Functional mobility training Balance training Endurance training Energy conservation Patient/Caregiver Education RE: [x]Role of PT [x]PT plan of care [x]Fall risk reduction [x]Discharge recommendations [x]Mobility Recommendations []Other: []Silver Solderer utilized for session Team Communication: Communicated with [x]RN []MD []OT []CM RE: Patient status []Patient discussed at interdisciplinary team rounds. Pt left supine with all needs in reach, bed alarm for safety Assessment Clinical Impression: Carter Raymundo is a 70 y.o. male with a history of HTN, CKD, schizoaffective disorder, and drug-induced parkinsonism who presents to physical therapy during hospitalization for stroke versus TME, but with unremarkable workup. Now medically stable pending inpatient psych placement for decompensated schizoaffective disorder. Pt is making fair progress as demonstrated by improved participation in functional mobility as compared to previous visit. Pt continues to function below baseline limited by the primary impairment/activity limitation of endurance, impaired strength anddynamic balance which is likely due to deconditioning iso immobility during hospitalization. Patient awaiting psych recommendations. Acute PT will continue to follow and progress mobility while in house. Treatment Plan: Balance training, Bed mobility, Gait training/stairs, Therapeutic Activities/Functional Training, Therapeutic Exercise, Transfer training Patient agrees with the above goals and is willing to participate in the rehabilitation program: Yes Time: [id number] Physical Therapist Name: DEMETRA HAWKINS PT Physical Therapist Pager: [phone] License #: [id number] * Kymberly Mata MD - 06/03/2025 4:30 PM EDT [facility] PSYCHIATRIC CONSULTATION FOLLOW-UP NOTE INTERVAL HPI: Carter was more agitated overnight. He pulled out PIV. He received haloperidol 2mg PRN without benefit. Clozapine doses were switched so that he received 150mg yesterday am and 25mg qHS. He is cleared from COVID precautions. This morning, he engaged in session with physical therapy. SOLAR DESIGN ENGINEER reviewed his chart and recommended sips of water, meds with applesauce, nutrition through PEG. Team and 1:1 observer report that pt has been expressing SI throughout the day. On interview, pt is more engaged and participatory. He is calm and engages more sustained interaction. He expresses concern that we failed him. He shares that he is experiencing feelings of despair. He requests water that is potable and does accept water with assistance from PCT. Pt at this time is oriented fully to the date and the hospital. He can correctly list the days of the week in reverse order. 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 He tells me about working with the physical therapy team. He endorses poor sleep overnight. After some time, he asks to take a break from the interview. REVIEW OF SYSTEMS: Poor sleep overnight Last BM yesterday per team EXAM: Temp: [98 ??F (36.7 ??C)-98.5 ??F (36.9 ??C)] 98.5 ??F (36.9 ??C) Heart Rate: [68-96] 90 Resp: [18] 18 BP: (126-150)/(78-86) 150/84 SpO2: [93 %-100 %] 93 % Neurological: Gait exam deferred Moving all extremities spontaneously Coarse resting tremor in UE Cognitive: Alert and oriented to self, year and place. He is able to complete DOWB. Recent recall intact to interview. Mental Status: Appearing stated age, dressed in hospital attire, lying in bed. More cooperative and pleasant, normal eye contact, no PMR/PMA. Speech is more spontaneous, normal rate, soft volume, normal prosody andarticulation. Mood is despair. Affect euthymic, stable, congruent. TP more linear with intact associations TC telling staff that he wants to , +paranoia about the water (agreeing to drink it). No hallucinations appreciated. Insight/judgment poor/poor. DATA: Lab Results Component Value Date GLUCOSE 142 (H) 06/03/2025 CALCIUM 8.9 06/03/2025 NA 145 06/03/2025 K 4.7 06/03/2025 CO2 29 06/03/2025 CL 108 06/03/2025 BUN 39 (H) 06/03/2025 CREATININE 0.90 06/03/2025 Lab Results Component Value Date MG 2.2 06/03/2025 Lab Results Component Value Date CALCIUM 8.9 06/03/2025 PHOS 2.9 06/03/2025 Lab Results Component Value Date WBC 15.35 (H) 06/03/2025 HGB 12.5 (L) 06/03/2025 HCT 40.3 06/03/2025 MCV 97 06/03/2025 PLT 243 06/03/2025 BG 104-182 Last EKG ECG 12 lead Collection Time: 05/31/25 10:34 AM Result Value Ref Range Ventricular Heart Rate 78 BPM Atrial Heart Rate 78 BPM LA Interval 122 ms QRSD Interval 106 ms QT Interval 414 ms QTC Interval 471 ms P Mathews 62 degrees R Mathews -28 degrees T Wave Mathews 36 degrees Narrative Normal sinus rhythm sinus arrhythmia Normal ECG When compared with ECG of 29-May-2025 11:00, Criteria for Septal infarct are no longer present *Note: Due to a large number of results and/or encounters for the requested time period, some results have not been displayed. A complete set of results can be found in Results Review. MEDICATIONS: Current Medications[1] PRN Meds:.PRN Medications[2] ASSESSMENT: Carter Raymundo is a 70 y.o. male with past psych history of schizoaffective disorder on clozapine,past medical history of hypertension, CKD, oropharyngeal dysphagia c/b frequent aspiration now s/p PEG, drug-induced Parkinsonism, who presented from nursing facility with altered mental status with unresponsiveness and aphasia, now medically cleared. Psychiatry initially consulted for assistance with diagnostic clarification, with initial differential ddx of catatonia vs delirium/encephalopathy vs decompensated psychosis. Course c/b diagnosis of COVID with consolidation on CXR concerning for pneumonia, now improved. Pt presented with more agitation and insomnia overnight, self-discontinuing PIV. Limited improvement with haloperidol 2mg PRN dose as well as standing regimen. Clozapine regimen switched to 150mg qAM+ 25mg qHS, which could have impacted sleep overnight. He has been expressing suicidal thoughts today. He participated in physical therapy. On evaluation this afternoon, pt is calm and participatory in interview. He reports feelings of despair and expresses some paranoia about the water, though accepts assistance with drinking it. 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 He is appropriately oriented to the time and place and his attention exam is intact. He is less irritable overall and politely requests to take a break from the interview when he wants to rest. Clinical impression c/w schizoaffective disorder with component of delirium in the setting of recent infection. Cognitive exam improved this afternoon but he has had fluctuating mental status with more insomnia and agitation overnight. Due to the recent medication change, recommend continuing clozapine at 25mg qam and 150mg qHS. If agitation and paranoia persists, it would be reasonable to increase clozapine dose as Qtc improved and he is not experiencing constipation. Would continue to utilizehaloperidol 2mg PRN agitation, repeat after 30-60min if no improvement. DSM-5 DIAGNOSIS: Schizoaffective disorder Delirium R/o unspecified neurocognitive disorder RECOMMENDATIONS: -continue clozapine 25mg qAM + 150mg qHS; level pending -continue depakote 250mg qAM + 500mg qHS -continue trazodone 150mg qHS -continue ramelteon 8mg qHS -continue haloperidol 1mg qAM + 2mg qHS; will monitor for worsening EPS -for mild to moderate agitation, offer haloperidol 2mg PRN, may repeat x1 -continue standing acetaminophen for pain -continue bowel regimen -continue 1:1 observer for safety -continue section 12 with plan to resume bed search for inpatient level of psychiatric care now that medically ready [1] Current Facility-Administered Medications Medication Dose Route Frequency Provider Last Rate Last Admin acetaminophen (TYLENOL) tablet 1,000 mg 1,000 mg G-tube Q8H [facility] Agustín Vazquez MD 1,000 mg at 06/03/25 183 atorvaSTATin (LIPITOR) tablet 20 mg 20 mg G-tube QHS Juliet Becerra MD 20 mg at 06/03/252036 bisacodyl (DULCOLAX) suppository 10 mg 10 mg Rectal Daily PRN Noe Ruiz MD 10 mg at 05/02/252042 [Held by provider] buPROPion (WELLBUTRIN) tablet 100 mg 100 mg G-tube TID Peña Salas MD 100 mg at 05/10/252031 calcium carbonate (TUMS) chewable tablet 1,000 mg 1,000 mg G-tube TID PRN Karrie Starks MD cefepime (MAXIPIME) 2 g in sodium chloride 0.9% (NS) MBP 2 g Intravenous Q12H Misael Paul 33.3 mL/hr at 06/02/25 1239 2 g at 06/02/25 123 cloZAPine (CLOZARIL) tablet 150 mg 150 mg G-tube QHS Ammon Low MD PhD 150 mg at 06/03/252037 cloZAPine (CLOZARIL) tablet 25 mg 25 mg G-tube Daily Ammon Low MD PhD 25 mg at 06/03/25941 dextrose (TRUEPLUS) 40% oral gel 15 g 15 g Oral Q15 Min PRN Ammon Low MD PhD Or dextrose 50% (D50W) injection 12.5 g 12.5 g Intravenous PRN Ammon Low MD PhD Or dextrose 50% (D50W) injection 25 g 25 g Intravenous PRN Ammon Low MD PhD Or glucagon injection 1 mg 1 mg Intramuscular PRN Ammon Low MD PhD enoxaparin (LOVENOX) injection 40 mg 40 mg Subcutaneous Q24H [facility] Juliet Becerra MD 40 mg at famotidine (PEPCID) tablet 20 mg 20 mg G-tube BID Juliet Becerra MD 20 mg at 06/03/252036 gabapentin (NEURONTIN) capsule 100 mg 100 mg G-tube QAM Patricia Holden MD 100 mg at 06/03/25941 gabapentin (NEURONTIN) capsule 300 mg 300 mg G-tube QHS Patricia Holden MD 300 mg at 06/03/252036 guaiFENesin (ROBITUSSIN) 100 mg/5 mL syrup 200 mg 200 mg Oral Q4H PRN Patricia Holden MD 200 mg at 06/01/252026 haloperidoL (HALDOL) tablet 1 mg 1 mg G-tube Daily Mari Kaur MD 1 mg at 06/03/25 0942 And haloperidoL (HALDOL) tablet 2 mg 2 mg G-tube QHS Mari Kaur MD 2 mg at 06/03/252036 haloperidoL (HALDOL) tablet 2 mg 2 mg Oral BID PRN Patricia Holden MD insulin regular (HumuLIN R, NovoLIN R) 100 unit/mL injection 0-12 Units 0-12 Units Subcutaneous Q6HSCH Ammon Low MD PhD 2 Units at 06/03/25 1204 iohexoL (OMNIPAQUE) 240 mg iodine/mL solution 20 mL 20 mL Intravenous Once in imaging Karrie Starks MD ipratropium-albuteroL (DUONEB) 0.5-2.5 mg/3 mL nebulizer solution 3 mL 3 mL Nebulization Q4H PRN Patricia Holden MD lactulose (ENULOSE) 10 gram/15 mL solution 20 g 20 g G-tube Daily Ammon Low MD PhD 20 g at06/02/25 0922 lidocaine 4 % patch 1 patch 1 patch Topical Q24H Karrie Starks MD 1 patch at 05/24/25 1257 lidocaine 4 % patch 1 patch 1 patch Topical Q24H Karrie Starks MD 1 patch at 05/24/25 1304 multivitamin with minerals oral liquid 15 mL 15 mL G-tube Daily Karrie Starks MD 15 mL at 06/03/25 0941 peripheral line: sodium chloride (NS) 0.9% flush 3 mL Intravenous Q12H CLAUDIA Peña Salas MD 3 mLat 06/02/252035 And peripheral line: sodium chloride 0.9 % (NS) flush 3 mL Intravenous Q1 Min PRN Peña Salas MD polyethylene glycol (MIRALAX) packet 17 g 17 g G-tube BID Patricia Holden MD 17 g at 06/03/252037 ramelteon (ROZEREM) tablet 8 mg 8 mg G-tube QHS Karrie Starks MD 8 mg at 06/03/252036 sennosides oral syrup 17.6 mg 17.6 mg G-tube Daily Patricia Holden MD 17.6 mg at 06/03/25 0941 sodium chloride 3 % nebulizer solution 4 mL 4 mL Nebulization Q4H PRN Ammon Low MD PhD 4 mL at 05/28/25 1722 tamsulosin (FLOMAX) 24 hr capsule 0.4 mg 0.4 mg G-tube QHS Juliet Becerra MD 0.4 mg at 06/03/252036 traZODone (DESYREL) tablet 150 mg 150 mg G-tube Nightly Patricia Holden MD 150 mg at 06/03/252037 valproate (DEPAKENE) 250 mg/5 mL solution 250 mg 250 mg Oral TID Ammon Low MD PhD 250 mg at 06/03/25 183 [2] bisacodyl calcium carbonate dextrose oral gel OR dextrose 50% OR dextrose 50% OR glucagon (human recombinant) guaiFENesin haloperidoL iohexoL ipratropium-albuteroL Insert and Maintain Peripheral IV AND sodium chloride AND sodium chloride sodium chloride * Patricia Holden MD - 06/03/2025 7:09 AM EDT [facility] Medicine Progress Note Patient: Carter Raymundo ( , 1955) Admission Date: 04/15/2025 PCP: [facility] In[facility] Attending: Urban Mondragon MD INTERVAL 24-hr events: - Pulled out PIV overnight, needed multiple spot doses of Haldol for agitation - Switched Depakote to short acting valproate solution - Did not get his final dose of cefepime - clozapine doses switched - Not able to do SOLAR DESIGN ENGINEER or PT yesterday AM Subjective: Carter was still fairly agitated this morning. Expressed continued SI and anger with the medical team. He requested water, and tolerated being boosted in bed and sat upright. Was able to drink water without issue with periods of belching in between sips. Had a conversation with SOLAR DESIGN ENGINEER this morning. Carter has a long history of silent aspiration, fluctuating dysphagia and very variable tests on swallow studies. Based on their review of his chart, and given that he has a PEG tube in place, they would recommend at this time that he be primarily n.p.o. hecan have sips of water, and if needed applesauce to deliver medications. The utility of a swallow study would be limited given his documented history of fluctuating results. Was not able to obtain IV today, it is currently not needed given completion of cefepime course. OBJECTIVE Vitals: T 97.6 ??F (36.4 ??C) HR (!) 95 BP 127/83 RR 18 SpO2 95 % 3 L/min O2 Device: None (Room air) Wt 75.8 kg (167 lb 1.7 oz) Body mass index is 23.31 kg/m??. General: NAD, not participatory with orientation questions HEENT: anicteric sclerae, moist membranes Cardiac: RRR, no m/r/g, no JVD Pulm: CTAB, non-labored. Brief episode of coughing. Abdomen: soft, NTND Extremities: no edema, warm Neuro: symmetric face, EOMI, fluent speech, moving all limbs Skin: exposed skin w/o rashes/lesions Psych: see hpi Labs and reports reviewed in the chart. Pertinent findings are noted in the A/P. ASSESSMENT/PLAN 70 y.o. male with PMHx HTN, CKD, schizoaffective disorder, and drug-induced parkinsonism, who initially presented with unresponsiveness, asphaia, and possible left facial droop concerning for stroke versus TME, but with unremarkable workup. Admitted to medicine for monitoring and re-initiation of cl ozapine dosing, now medically stable pending inpatient psych placement for decompensated schizoaffective disorder. ACTIVE ISSUES # Transient unresponsiveness # Schizoaffective disorder # Acute delirium Multiple transient unresponsiveness events; stroke and seizure workup negative (CTH, MRI brain, EEG). Likely acute delirium on background of decompensated schizoaffective disorder. Psychiatry managing clozapine titration and adjuncts; haloperidol for augmentation and agitation. Meets Section 12 criteria. He continues to have periods of minimal responsiveness to stimulation. - Psych following - weekly interdisciplinary meetings Fridays at 1400 - Psych to f/up Clozapine level in the am 06/03 - c/w clozapine 25 mg qAM + 125 mg qhs - c/w valproate 250mg TID --increase standing haloperidol to 1mg qD + 2mg qHS - c/w trazodone 150 mg qhs - c/w ramelteon 8 mg qhs - HCP affirmed; cannot leave AMA - Psych placement partially limited by his inability to tolerate PT, psych w plan to titrate medications to hopefully facilitate amenability to PT. # AHRF (resolved) # COVID s/p remdesivir/dex # LLL PNA COVID positive (05/24) with new LLL consolidation; initially hypoxic with tachycardia. C/f for mucus plugging previously during acute hypoxic events. MRSA swab negative; improved with remdesivir, cefepime and dexamethasone. High aspiration risk. - s/p remdesivir 05/24-05/28 (off precautions 06/03) - s/p dexamethasone 05/27-05/30 - s/p cefepime 05/27-06/02 with 1 dose levaquin to complete course. - d/c standing nebs, made prn - Unable to receive final dose cefepime 06/02 due to self removal of PIV. Will give 1 dose of Levaquin instead. # hypernatremia (improving) - Improving with PO fluids and increased free water flushes. # Oropharyngeal Dysphagia with G-Tube Dependence # abdominal pain Pulled out G-tube twice; replaced 05/12. At risk for aspiration; tolerating some PO liquids with nursing monitoring. Noted some abdominal pain on 06/02, likely in the setting of change to cyclic feeds per nutrition the night prior. Discussions with nutrition demonstrated fluctuating ability to tolerate p.o., and inconsistent swallow study results. At this time recommend primarily n.p.o. with water with one-to-one nursing bedside. - c/w overnight tube feeds; adjustments per nutrition. - SOLAR DESIGN ENGINEER consult if patient agreeable,limited by agitation/paranoia # Constipation / Diarrhea Hx severe stool burden on clozapine requiring aggressive bowel regimen; now with diarrhea intermittently. - adjust bowel reg pending stool output # Sinus Tachycardia Stable sinus tachycardia 90-100s. Will monitor. CHRONIC ISSUES # Drug-induced Parkinsonism: Sinemet tapered and discontinued (05/28) - Continuing reduced dose Sinemet as above; d/c on 05/28 # CAD: c/h atorvastatin # CKD: at baseline Cr # BPH: c/h tamsulosin # GERD: c/h famotidine CORE MEASURES - Access: PIV(s) - DVT ppx: Lovenox (patient intermittently refusing) - Code Status: Full Code - Contact/HCP: brother Delvin Raymundo [phone] - Dispo: cheli-psych placement, trial with PT -- Patricia Holden MD Resident, Internal Medicine Cosigned by Urban Mondragon MD at 06/03/2025 3:30 PM EDT Associated attestation - Urban Mondragon MD - 06/03/2025 3:30 PM EDT I have seen and examined the patient, reviewed the findings and plan of care as documented by Dr. Holden and agree, except for any additional comments below. This is a 69 yo M with hx of schizoaffective disorder, drug induced parkinsonism, who presented with unresponsiveness found to have acute hypoxic respiratory failure, COVID, bibasilar pneumonia concerning for aspiration, who has completed antibiotics and now off precautions for COVID. Medically stable. 24 hour events: agitated overnight and pulled IV, expressing suicidal thoughts, no plan #Schizoaffective disorder #Metabolic encephalopathy, delirium #COVID/sepsis/acute hypoxic respiratory failure/bibasilar mucous plugging concerning for aspirationpneumonia #s/p PEG #Hypernatremia #Drug induced parkinsonism A/P #Schizoaffective disorder: has paranoia, no capacity, appreciate psych recs, continue with clozapine 25/150mg, depakote 250/500mg liquid formulation, haldol 1mg qAM and 2mg qhs, trazodone 150mg qhs, gabapentin 100mg/300mg, PRN haldol IM for acute agitation. Improving mental status, A&Ox3. On , HCP activated. QTC 471 on 05/31. Follow up clozapine level. On 06/03 expressed SI without plan, continue 1:1, appreciate psych recs on increased agitation. #Metabolic encephalopathy - resolved: presented with AMS, initial code stroke called, CT head without contrast neg. EEG without evidence of seizure. Had MOTOR ROUTE CARRIER on 05/27 for unresponsiveness and hypoxemia likely due to aspiration. A component of delirium as well given medical comorbidities. Low thresholdto hold clozapine/depakote/gabapentin if unresponsive or increased somnolence. Overall improved, alert and awake, interactive. #COVID/aspiration pneumonia/acute hypoxic respiratory failure - resolved: COVID positive on 05/24, fever to 101.5, completed remdesivir, on dex due to O2 requirement since 05/27. Satting well on RA, discontinued dex 05/31 as patient is on RA. CTA showing bibasilar mucous plugging likely due to aspiration, s/p cefepime and vanc, completed cefepime for 7 day course on 06/02. Advanced diet to thin liquidson 05/30, however remains high aspiration risk and SOLAR DESIGN ENGINEER felt aspiration is silent and clinical assessment has little utility, will need video swallow which is largely limited by mental status and this assessment can be continued in the outpatient setting. COVID precautions removed on 06/03. #Hypernatremia - resolved: increase free water flush, likely due to limited po intake, resolved as of 06/01. #Drug induced parkinsonism: s/p sinemet #Dysphagia s/p G tube: Continue on TF with [facility]. I spent 55 minutes directly and personally assessing the patient by, but not limited to, obtaining a history; examining the patient; reviewing data; making decisions for treatment, evaluation of patient's response to treatment; documentation of findings; and discussions with other members of the care team. * Kimani Rivas MD - 06/02/2025 9:37 AM EDT Images from the original note were not included. [facility] PSYCHIATRIC CONSULTATION FOLLOW-UP NOTE INTERVAL HPI: - NAEON - Patient adherent to medication regimen - Patient mood is stable, still demonstrating some signs of paranoia Patient seen interacting with staff normally, allowing for vitals. Patient reports being angry withTW because you don't know what you're doing . He states various expletives. He states that he doesnot need any help with anything and does not have any questions for TW. He does not directly answerany questions asked about mood or cognition but indicates he is angry. He requests TW to exit the room. REVIEW OF SYSTEMS: As per HPI EXAM: 06/02/2025 8:07 AM Vital Signs Temperature 97.9 ??F (36.6 ??C) Heart Rate 92 Respiration 18 SpO2 95 % Blood Pressure 139/86 Neurological: Motor: no abnormal movements appreciated on exam; demonstrates spontaneous movements of all extremities Cognitive: Wakefulness/alertness: awake and alert Orientation: unable to assess Attention: Unable to assess Memory: unable to assess Mental Status: Appearance: appears stated age, in hospital gown Behavior: intense eye contact, uncooperative Mood: angry Affect: irritable, constricted, stable Speech: normal rate/rhythm/tone/volume Thought process: unable to assess Thought content and perceptions: demonstrates some paranoia with particular staff; unable to assessSI/HI/AVH Insight and judgment: limited/limited MEDICATIONS: Scheduled Meds:Scheduled Medications[1] Continuous Infusions:Infusions Meds[2] PRN Meds:.PRN Medications[3] DATA: Reviewed. ASSESSMENT: Carter Raymundo is a 69 y.o. male with past psych history of schizoaffective disorder on clozapine,past medical history of hypertension, CKD, oropharyngeal dysphagia c/b frequent aspiration now s/p PEG, drug-induced Parkinsonism, who presented from nursing facility with altered mental status with unresponsiveness and aphasia, now medically cleared. Psychiatry initially consulted for assistance with diagnostic clarification, with initial differential ddx of catatonia vs delirium/encephalopathy vs decompensated psychosis. On evaluation today, patient continues to present as irritable, however overall less paranoid on interview and with staff. Tolerating recent increase of Haldol well. No recent episodes of overt agitation though there will be inappropriate statements made to certain staff members. Paranoia is less generalized and more targeted at particular individuals. Course recently complicated by aspiration pneumonia, s/p remdesivir and cefepime/vancomycin, currently on cefepime, COVID+. Currently recoveringfrom medical illness well. No medication changes recommended from psychiatric perspective today, reasonable to transition from depakote sprinkles to liquid formulation due to g-tube clogging, will continue to monitor patient tolerance and symptoms. Major barriers to move patient care forward has been delirium (likely resolved), agitation (resolving), paranoia (improved, not yet optimized). Patient presentation currently consistent with acute psychosis in the setting of schizoaffective disorder, delirium and/or underlying neurocognitive disorder (not previously diagnosed per records). Presentation of altered mental status also similar to prior: catatonia was deemed unlikely given isolated symptom of mutism, intermittent stupor without muscle rigidity/waxy flexibility, and also the limited effect of benzodiazepines on clinical course. No structural intracranial abnormalities on imaging. Multiple EEGs demonstrate no seizure, findings more consistent with delirium but non-specific.Regarding psychiatric symptoms, he is paranoid, endorses delusions, has endorsed SI, made verbal thr eats to staff, does not have known AVH. Holding bupropion, lowering Sinemet dose as able to facilitate decrease in agitation which appears primarily related to psychosis at this time. Currently on previous home clozapine dose. Brother reports at baseline patient is relatively high-functioning, pleasant, not overtly paranoid. At this point, no concern for acute medical illness, and behavior seems primarily related to underlying schizoaffective disorder. Primary medical team has cleared patient for inpatient psychiatric bed placement. Weekly interdisciplinary meeting held 05/22 to discuss patient's recent behavior and dispo barriers. Addressing agitation and psychosis with scheduled clozapine, depakote, Haldol. For dispo, patient will need to demonstrate improvement in mobility (first actionable goal out of bed to chair), cooperation with care. HCP affirmed on 05/20 for substitute decision making. Patient on section 12 due to inability to care for self and acute risk of psychiatric decompensation, bed search in progress. DSM-5 DIAGNOSIS: Delirium (hypoactive, resolving) Schizoaffective disorder R/o unspecified neurocognitive disorder RECOMMENDATIONS: #LEGAL Patient remains on section 12, cannot leave AMA, bed search in progress Continue 1:1 sitter #MANAGEMENT Note last Qtc: 471 on 05/31 - Uri; consider repeat EKG q2-3 days as able for monitoring of QTc Continue delirium precautions --> Emphasize strong diurnal cues including windows open during day, limit disruptions overnight, practice avoidance of deliriogenic drugs as possible, mobilize throughout the day as possible, optimize nutrition, ensure normal regular bowel movements, and treat pain to the extent possible Clozapine dosing: c/w 25mg qAM+150mg qHS C/w depakote 250mg qAM + 500mg qHS --> reasonable to transition from sprinkles to liquid formulation Please continue efforts to ensure bowel movement while on clozapine with consistent documentation bowel movements (last large BM 06/02) C/w gabapentin dose to 100 mg qAM+300mg QHS Continue to hold Wellbutrin 100 mg TID Continue ramelteon 8 mg QHS Continue trazodone 150 mg QHS Please c/w standing Haldol to 1mg PO QD + 2mg PO QHS For mild/moderate agitation, offer haloperidol 2mg PO BID PRN May give Haldol 2 mg IM PRN for refractory acute agitation, monitoring closely for EPS; may repeat same dose if no response in 30 mins; would re-engage psychiatry if requiring multiple doses Please note benzodiazepines may worsen acute delirium Psychiatry will continue to follow Kimani Rivas MD PGY2, Department of Psychiatry Psychiatry Consultation-Liaison Service Please page [phone] overnight for any questions or concerns regarding acute psychiatric emergencies. [1] acetaminophen, 1,000 mg, G-tube, Q8H CLAUDIA atorvaSTATin, 20 mg, G-tube, QHS benzonatate, 100 mg, Oral, TID [Held by provider] buPROPion, 100 mg, G-tube, TID cefepime, 2 g, Intravenous, Q12H cloZAPine, 150 mg, G-tube, QHS cloZAPine, 25 mg, G-tube, Daily divalproex, 250 mg, Oral, QAM And divalproex, 500 mg, Oral, QPM enoxaparin, 40 mg, Subcutaneous, Q24H CLAUDIA famotidine, 20 mg, G-tube, BID gabapentin, 100 mg, G-tube, QAM gabapentin, 300 mg, G-tube, QHS haloperidoL, 1 mg, G-tube, Daily And haloperidoL, 2 mg, G-tube, QHS haloperidol lactate, 2 mg, Intramuscular, Once insulin regular, 0-12 Units, Subcutaneous, Q6H CLAUDIA ipratropium-albuteroL, 3 mL, Nebulization, Q4H lactulose, 20 g, G-tube, Daily lidocaine, 1 patch, Topical, Q24H lidocaine, 1 patch, Topical, Q24H multivitamin with minerals, 15 mL, G-tube, Daily sodium chloride, 3 mL, Intravenous, Q12H CLAUDIA polyethylene glycol, 17 g, G-tube, BID ramelteon, 8 mg, G-tube, QHS sennosides, 17.6 mg, G-tube, Daily tamsulosin, 0.4 mg, G-tube, QHS traZODone, 150 mg, G-tube, Nightly [2] [3] bisacodyl calcium carbonate dextrose oral gel OR dextrose 50% OR dextrose 50% OR glucagon (human recombinant) guaiFENesin iohexoL Insert and Maintain Peripheral IV AND sodium chloride AND sodium chloride sodium chloride * Patricia Holden MD - 06/02/2025 7:47 AM EDT [facility] Medicine Progress Note Patient: Carter Raymundo ( , 1955) Admission Date: 04/15/2025 PCP: [facility] Inpatient Attending: Urban Mondragon MD INTERVAL 24-hr events: - overnight changed haldol to 1mg qd and 2mg qhs per psych - Had 2 large Bms yesterday AM Subjective: - Got pm dose of clozapime this am - refused depakote this am (attempted to give in ice cream) Was doing fairly well this morning. He is more alert and is seemingly less paranoid. He does know that he has very bad abdominal pain, primarily on the left side of note his tube feeds were changed per nutrition yesterday and nursing believes that the likely etiology of his abdominal pain is due tothe change in tube feeding. He did have recent bowel movements he states is feeling thirsty this morning and had just requested some water. He is amenable to trying an SOLAR DESIGN ENGINEER consult pending their availability. Per nursing is very challenging to give him his Depakote. His respiratory status has also significantly improved, they think that the episodes of coughing are occurring primarily when he is anxious or agitated. He has not needed any suctioning. He is occasionally getting the DuoNebs. OBJECTIVE Vitals: T 98.1 ??F (36.7 ??C) HR (!) 96 BP (!) 144/78 RR 18 SpO2 100 % 3 L/min O2 Device: None (Room air) Wt 75.8 kg (167 lb 1.7 oz) Body mass index is 23.31 kg/m??. General: NAD, not participatory with orientation questions HEENT: anicteric sclerae, moist membranes Cardiac: RRR, no m/r/g, no JVD Pulm: CTAB, non-labored. Brief episode of coughing. Abdomen: soft, NTND Extremities: no edema, warm Neuro: symmetric face, EOMI, fluent speech, moving all limbs Skin: exposed skin w/o rashes/lesions Psych: see hpi Labs and reports reviewed in the chart. Pertinent findings are noted in the A/P. ASSESSMENT/PLAN 70 y.o. male with PMHx HTN, CKD, schizoaffective disorder, and drug-induced parkinsonism, who initially presented with unresponsiveness, asphaia, and possible left facial droop concerning for stroke versus TME, but with unremarkable workup. Admitted to medicine for monitoring and re-initiation of cl ozapine dosing, now medically stable pending inpatient psych placement for decompensated schizoaffective disorder. ACTIVE ISSUES # Transient unresponsiveness # Schizoaffective disorder # Acute delirium Multiple transient unresponsiveness events; stroke and seizure workup negative (CTH, MRI brain, EEG). Likely acute delirium on background of decompensated schizoaffective disorder. Psychiatry managing clozapine titration and adjuncts; haloperidol for augmentation and agitation. Meets Section 12 criteria. He continues to have periods of minimal responsiveness to stimulation. - Psych following - weekly interdisciplinary meetings Fridays at 1400 - Clozapine level in the am 06/03 - c/w clozapine 25 mg qAM + 125 mg qhs - PM 25mg iso 125mg dosage this am. - c/w depakote 250 mg qAM + 500 mg qhs --> transition to liquid form as he is not reliably able to get the sprinkles --increase standing haloperidol to 1mg qD + 2mg qHS - c/w trazodone 150 mg qhs - c/w ramelteon 8 mg qhs - HCP affirmed; cannot leave AMA - Psych placement partially limited by his inability to tolerate PT, psych w plan to titrate medications to hopefully facilitate amenability to PT. # AHRF (resolved) # COVID s/p remdesivir/dex # LLL PNA COVID positive (05/24) with new LLL consolidation; initially hypoxic with tachycardia. C/f for mucus plugging previously during acute hypoxic events. MRSA swab negative; improved with remdesivir, cefepime and dexamethasone. High aspiration risk. - s/p remdesivir 05/24-05/28 (off precautions 06/03) - s/p dexamethasone 05/27-05/30 - c/w cefepime 05/27-present, planned 7-day course (complete 06/02) - d/c tessalone perles - d/c standing nebs, made prn # hypernatremia (improving) - Improving with PO fluids and increased free water flushes. # Oropharyngeal Dysphagia with G-Tube Dependence # abdominal pain Pulled out G-tube twice; replaced 05/12. At risk for aspiration; tolerating some PO liquids with nursing monitoring. Noted some abdominal pain on 06/02, likely in the setting of change to cyclic feeds per nutrition the night prior. - c/w overnight tube feeds; adjustments per nutrition. - could trial PO if patient amenable - SOLAR DESIGN ENGINEER consult if patient agreeable,limited by agitation/paranoia. Will attempt today pending SOLAR DESIGN ENGINEER availability. # Constipation / Diarrhea Hx severe stool burden on clozapine requiring aggressive bowel regimen; now with diarrhea intermittently. - adjust bowel reg pending stool output # Sinus Tachycardia Stable sinus tachycardia 90-100s. Will monitor. CHRONIC ISSUES # Drug-induced Parkinsonism: Sinemet tapered and discontinued (05/28) - Continuing reduced dose Sinemet as above; d/c on 05/28 # CAD: c/h atorvastatin # CKD: at baseline Cr # BPH: c/h tamsulosin # GERD: c/h famotidine CORE MEASURES - Access: PIV(s) - DVT ppx: Lovenox (patient intermittently refusing) - Code Status: Full Code - Contact/HCP: brother Delvin Raymundo [phone] - Dispo: cheli-psych placement, completion of IV abx course -- Patricia Holden MD Resident, Internal Medicine Cosigned by Urban Mondragon MD at 06/02/2025 12:41 PM EDT Associated attestation - Urban Mondragon MD - 06/02/2025 12:41 PM EDT I have seen and examined the patient, reviewed the findings and plan of care as documented by Dr. Holden and agree, except for any additional comments below. This is a 69 yo M with hx of schizoaffective disorder, drug induced parkinsonism, who presented with unresponsiveness found to have acute hypoxic respiratory failure, COVID, bibasilar pneumonia concerning for aspiration, now improved. #Schizoaffective disorder #Metabolic encephalopathy, delirium #COVID/sepsis/acute hypoxic respiratory failure/bibasilar mucous plugging concerning for aspirationpneumonia #s/p PEG #Hypernatremia #Drug induced parkinsonism A/P #Schizoaffective disorder: has paranoia, no capacity, appreciate psych recs, continue with clozapine 25/150mg (150mg given in the AM 06/02, discuss with psych PM dose), depakote 250/500mg (consider changing to liquid due to G tube clogging), haldol 1mg qAM and 2mg qhs, trazodone 150mg qhs, gabapentin 100mg/300mg, PRN haldol IM for acute agitation. Improving mental status, A&Ox3. On [id number], HCP activated. QTC 471 on 05/31. Follow up clozapine level. More cooperative on 06/02 AM without paranoid thoughts, will aim for SOLAR DESIGN ENGINEER and possibly PT today. #Metabolic encephalopathy: presented with AMS, initial code stroke called, CT head without contrastneg. EEG without evidence of seizure. Had MOTOR ROUTE CARRIER on 05/27 for unresponsiveness and hypoxemia likely due to aspiration. A component of delirium as well given medical comorbidities. Low threshold to hold gianni zapine/depakote/gabapentin if unresponsive or increased somnolence. Overall improved, alert and awake, interactive. #COVID/aspiration pneumonia/acute hypoxic respiratory failure: COVID positive on 05/24, fever to 101.5, completed remdesivir, on dex due to O2 requirement since 05/27. Satting well on RA, discontinued dex 05/31 as patient is on RA. CTA showing bibasilar mucous plugging likely due to aspiration, s/p cefepime and vanc, completed cefepime for 7 day course with end date of 06/02. Advanced diet to thin liquids on 05/30, will need SOLAR DESIGN ENGINEER re-eval when he is more cooperative. Remains on COVID precautions until 06/03. #Hypernatremia: increase free water flush, likely due to limited po intake, resolved as of 06/01. #Drug induced parkinsonism: s/p sinemet #Dysphagia s/p G tube: will coordinate with RN and SOLAR DESIGN ENGINEER regarding repeat SOLAR DESIGN ENGINEER eval. Continue on TF with [facility]. I spent 55 minutes directly and personally assessing the patient by, but not limited to, obtaining a history; examining the patient; reviewing data; making decisions for treatment, evaluation of patient's response to treatment; documentation of findings; and discussions with other members of the care team. * Jaspreet Mai RN - 06/01/2025 6:08 PM EDT Alert, confused. Labile mood. + anxiety, + paranoia, + delusions. 1:1 sitter at bedside. VSS. NSR on tele. On RA with continuous O2 monitor. Fingersticks q6. Cyclic TF Glucerna 1.5 started this shift. X2 turn/repo. Purewick in place. Safety maintained. * Ashley - 06/01/2025 12:12 PM EDT NUTRITION FOLLOW UP NOTE SUBJECTIVE: Interview deferred as patient agitated/delirious, unable to appropriately answer questions. OBJECTIVE: Height: 71 in Admit weight: 75.8 kg (bed, 04/17) Current weight: No updated weights Pertinent Meds: IV ABx, famotidine, RISS, lactulose, liquid multivitamin w/ minerals, senna. Othersnoted. Recent Labs 06/01/25 0536 NA 146 K 4.1 CL 108 CO2 30 BUN 46* CREATININE 0.80 GLUCOSE 151* CALCIUM 9.1 MG 2.3 PHOS 3.2 Corrected Calcium: 10.22 Calculated using: - Calcium: 9.1 (06/01/2025) - Albumin: 2.6 (06/01/2025) Recent Labs 05/31/25 1243 05/31/25 1739 06/01/25 0053 06/01/25 1138 POCGLU 182* 166* 157* 160* Recent Labs 06/01/25 0536 ALT 9 AST 22 ALKPHOS 138* BILITOT 0.2 Food Allergies: NKFA Diet Order: Clear Liquid Diet Tube Feed Order: Glucerna 1.5 Sundar @ 50 mL/hr x24 hrs (provides: 1800 kcal, 99 g protein, 911 mL free water). With 250 mL flushes q4h (+1440 mL). Total 2351 mL free water/day. Access Type: PEG GI/Abdomen: Abdomen distended, rounded per flowsheets. LBM x1 (05/30/25). Skin: No pressure injuries noted. Drains: None. Extremities: No LE edema noted. Nutrition Focused Physical Exam: Deferred iso severe agitation. ASSESSMENT: Estimated Nutrition Needs: Calories: 6060-1202 kcal (25-30 kcal/kg) Protein: 85-106 g (1.2-1.5 g/kg) Fluids: 6536-6004 mL (25-30 mL/kg) Estimated Needs Calculated Usin.9 kg (156 lb 4.9 oz) (weight at rehab) Specifics: 70M w/ PMHx significant for HTN, CKD, schizoaffective disorder, and drug-induced parkinsonism. Presented (04/15/25) w/ unresponsiveness, asphaia, & left facial droop concerning for stroke versus TME. Admitted to medicine for monitoring and re-initiation of clozapine dosing. Medically stable pending inpatient psych placement for decompensated schizoaffective disorder. Nutrition following. Since last RD assessment (x5 days), patient switched to carbohydrate-controlled tube feed formula iso hyperglycemia w/ BG averaging >200 mg/dL. BG now improved/stabilizing w/ switch to TF regimen. Tube feed held 05/27 given increased O2 requirements/tachycardia, restarted 05/29 after improvements, just increased back to goal today. Continue tube feeds via PEG at goal to provide 100% of nutrition needs. Obtain new weight as able. Lytes currently WNL -- continue to trend. Nutrition to follow. Interventions / Recommendations: Diet per team/SOLAR DESIGN ENGINEER. Continue tube feeds at goal: Glucerna 1.5 Sundar @ 50 mL/hr x24 hrs (provides: 1800 kcal, 99 g protein, 911 mL free water). With 250 mL flushes q4h (+1440 mL). Total 2351 mL free water/day. Cyclic recs PRN: Glucerna 1.5 @ 75 mL/hr x16 hrs (run from 6pm to 10am) (provides: 1800 kcals, 99g protein, & 911 mL free water). Bolus recs: Glucerna 1.5 @ 5 CPD (240 mLs 5x/day) (same nutrition provisions as above). Monitor lytes, address PRN. Monitor FSBG/serum BG - insulin regimen per team. Monitor I's/O's, GI function, & BMs daily. Obtain new weight. Nutrition to continue to follow, please message or page [phone] with any questions/concerns Signed by: Nicole Ramirez, MS, RD, LDN 06/01/25 12:12 PM * Kimani Rivas MD - 06/01/2025 11:57 AM EDT [facility] PSYCHIATRIC CONSULTATION FOLLOW-UP NOTE INTERVAL HPI: - NAEON - Patient adherent to medication regimen - Sitter at bedside reports patient conversing normally this AM - Nursing reports patient has been intermittent inappropriate discussing dating prospects with provider Johnson is seen lying in bed on interview by this TW. He reports not liking TW. He states that he does not want to talk today and places his bed sheet over his head. When bed sheet is removed, he grabs orange juice at bedside and pours it onto the bed before tossing the cup away. He is unable to elaborate on his rationale regarding this. He declines answering further questions. REVIEW OF SYSTEMS: As per HPI EXAM: 06/01/2025 8:00 AM Vital Signs Heart Rate 80 SpO2 100 % Neurological: Motor: no abnormal movements appreciated on exam; demonstrates spontaneous movements of all extremities Cognitive: Wakefulness/alertness: awake and alert Orientation: unable to assess Attention: Unable to assess Memory: unable to assess Mental Status: Appearance: appears stated age, in hospital gown Behavior: good eye contact, uncooperative Mood: ... Affect: irritable, constricted, stable Speech: normal rate/rhythm/tone/volume Thought process: unable to assess Thought content and perceptions: demonstrates paranoia with staff; unable to assess SI/HI/AVH due to patient Insight and judgment: limited/limited MEDICATIONS: Scheduled Meds:Scheduled Medications[1] Continuous Infusions:Infusions Meds[2] PRN Meds:.PRN Medications[3] DATA: Reviewed. ASSESSMENT: Carter Raymundo is a 69 y.o. male with past psych history of schizoaffective disorder on clozapine,past medical history of hypertension, CKD, oropharyngeal dysphagia c/b frequent aspiration now s/p PEG, drug-induced Parkinsonism, who presented from nursing facility with altered mental status with unresponsiveness and aphasia, now medically cleared. Psychiatry initially consulted for assistance with diagnostic clarification, with initial differential ddx of catatonia vs delirium/encephalopathy vs decompensated psychosis. On evaluation today, patient presents as irritable, paranoid on interview with some disorganized behavior. Course recently complicated by aspiration pneumonia, s/p remdesivir and cefepime/vancomycin,currently on cefepime, COVID+. Unclear contribution of medical illness to current mental status as patient is still unable to engage in comprehensive interview, delirium however it is suspected that the primary escort car driver of his current disorganized behavior is psychosis as a consequence of his underlying primary schizoaffective disorder. Patient presentation currently consistent with acute psychosis in the setting of schizoaffective disorder, delirium and/or underlying neurocognitive disorder (not previously diagnosed per records). Presentation of altered mental status also similar to prior: catatonia was deemed unlikely given isolated symptom of mutism, intermittent stupor without muscle rigidity/waxy flexibility, and also the limited effect of benzodiazepines on clinical course. No structural intracranial abnormalities on imaging. Multiple EEGs demonstrate no seizure, findings more consistent with delirium but non-specific.Regarding psychiatric symptoms, he is paranoid, endorses delusions, has endorsed SI, made verbal thr eats to staff, does not have known AVH. Holding bupropion, lowering Sinemet dose as able to facilitate decrease in agitation which appears primarily related to psychosis at this time. Currently on previous home clozapine dose. Brother reports at baseline patient is relatively high-functioning, pleasant, not overtly paranoid. At this point, no concern for acute medical illness, and behavior seems primarily related to underlying schizoaffective disorder. Primary medical team has cleared patient for inpatient psychiatric bed placement. Weekly interdisciplinary meeting held 05/22 to discuss patient's recent behavior and dispo barriers. Addressing agitation and psychosis with scheduled clozapine, depakote, Haldol. For dispo, patient will need to demonstrate improvement in mobility (first actionable goal out of bed to chair), cooperation with care. HCP affirmed on 05/20 for substitute decision making. Patient on section 12 due to inability to care for self and acute risk of psychiatric decompensation, bed search in progress. DSM-5 DIAGNOSIS: Delirium (hypoactive, resolving) Schizoaffective disorder R/o unspecified neurocognitive disorder RECOMMENDATIONS: #LEGAL Patient remains on section 12, cannot leave AMA, bed search in progress Continue 1:1 sitter #MANAGEMENT Note last Qtc: 471 on 05/31 - Uri; consider repeat EKG q2-3 days as able for monitoring of QTc Continue delirium precautions --> Emphasize strong diurnal cues including windows open during day, limit disruptions overnight, practice avoidance of deliriogenic drugs as possible, mobilize throughout the day as possible, optimize nutrition, ensure normal regular bowel movements, and treat pain to the extent possible Clozapine dosing: c/w 25mg qAM+150mg qHS C/w depakote 250mg qAM + 500mg qHS Please continue efforts to ensure bowel movement while on clozapine with consistent documentation bowel movements (last large BM 05/30) C/w gabapentin dose to 100 mg qAM+300mg QHS Continue to hold Wellbutrin 100 mg TID Continue ramelteon 8 mg QHS Continue trazodone 150 mg QHS Please increase standing Haldol to 1mg PO QD + 2mg PO QHS For mild/moderate agitation, offer haloperidol 2mg PO BID PRN May give Haldol 2 mg IM PRN for refractory acute agitation, monitoring closely for EPS; may repeat same dose if no response in 30 mins; would re-engage psychiatry if requiring multiple doses Please note benzodiazepines may worsen acute delirium Psychiatry will continue to follow Kimani Rivas MD PGY2, Department of Psychiatry Psychiatry Consultation-Liaison Service Case staffed with attending psychiatrist Dr. Kymberly Mata. Please page [phone] overnight for any questions or concerns regarding acute psychiatric emergencies. [1] acetaminophen, 1,000 mg, G-tube, Q8H CLAUDIA atorvaSTATin, 20 mg, G-tube, QHS benzonatate, 100 mg, Oral, TID [Held by provider] buPROPion, 100 mg, G-tube, TID cefepime, 2 g, Intravenous, Q12H cloZAPine, 150 mg, G-tube, QHS cloZAPine, 25 mg, G-tube, Daily divalproex, 250 mg, Oral, QAM And divalproex, 500 mg, Oral, QPM enoxaparin, 40 mg, Subcutaneous, Q24H CLAUDIA famotidine, 20 mg, G-tube, BID gabapentin, 100 mg, G-tube, QAM gabapentin, 300 mg, G-tube, QHS haloperidoL, 1 mg, G-tube, BID haloperidol lactate, 2 mg, Intramuscular, Once insulin regular, 0-12 Units, Subcutaneous, Q6H CLAUDIA ipratropium-albuteroL, 3 mL, Nebulization, Q4H lactulose, 20 g, G-tube, Daily lidocaine, 1 patch, Topical, Q24H lidocaine, 1 patch, Topical, Q24H multivitamin with minerals, 15 mL, G-tube, Daily sodium chloride, 3 mL, Intravenous, Q12H CLAUDIA ramelteon, 8 mg, G-tube, QHS sennosides, 17.6 mg, G-tube, Daily tamsulosin, 0.4 mg, G-tube, QHS traZODone, 150 mg, G-tube, Nightly [2] [3] bisacodyl calcium carbonate dextrose oral gel OR dextrose 50% OR dextrose 50% OR glucagon (human recombinant) guaiFENesin iohexoL Insert and Maintain Peripheral IV AND sodium chloride AND sodium chloride sodium chloride Cosigned by Kymberly Mata MD at 06/01/2025 11:12 PM EDT Associated attestation - Kymberly Mata MD - 06/01/2025 11:12 PM EDT I was present with the resident during the evans portions of the service. I discussed the case with the resident and agree with the findings and plan as documented in the resident's note with the following addendum: On interview later this afternoon, pt is observed lying in bed making a gesture with his middle finger. Nursing reports that he swatted at staff earlier in the morning. He has been calmer throughout the day. On my interview, he is more verbal and able to tolerate longer interaction. He remains paranoid andwhen I ask him to repeat something, he states you know what I said. He continues to express distrust toward staff; asks for water and when offered wonders if it is poisoned. He has several cups of water at bedside. The pt endorses feeling very angry. He is hesitant to tell me something about his b rother because he says it will sound paranoid. Then states that his brother is the devil. He reports prior history of a breakdown, for which he was hospitalized at [place]. He wonders if I am and then apologies for the inquiry. He tangentially states that he wants to someone he is in love with. On exam, he is alert and more cooperative. Speech is spontaneous, normal rate, soft volume, normal articulation. Mood is furious. Affect is mildly irritable, stable. TP tangential with some PALAK. TCno SI, +paranoia. He declines again to participate in all cognitive exam questions, including orientation and attention testing. His insight and judgment remain limited. Clinical impression c/w schizoaffective disorder with likely contribution of delirium, r/o underlying major neurocognitive disorder. Recommendations: -check trough clozapine level -increase standing haloperidol to 1mg qD + 2mg qHS -continue excellent medical care as you are doing -continue section 12 when medically stable -we will continue to follow with you * Patricia Holden MD - 06/01/2025 7:34 AM EDT [facility] Medicine Progress Note Patient: Carter Raymundo ( , 1955) Admission Date: 04/15/2025 PCP: [facility] Attending: Urban Mondragon MD INTERVAL 24-hr events: - Stopped Dex yesterday 05/31 - Increased free water flushes AM Subjective: Doing well this morning from an alertness/ respiratory standpoint. He continues to have significantparanoia, expressing concern that we are trying to hurt him, and requesting water but stating that we will poison him. He pulled the pulse ox off this am, but is unrestrained and has not tried to pull off his IV which he does not want to have and requested be removed Discussion with psych this morning regarding next steps - he is likely too medically complex to be on the psych floor despite interval improvement in respiratory status. Before going to a facility hewill need to be able to mobilize with PT (possible facilities expressing concern he is not ambulating - he has been declining PT). Psych to work on optimizing medications to hopefully facilitate him being able to work with PT. OBJECTIVE Vitals: T 97.2 ??F (36.2 ??C) HR 76 BP (!) 183/79 RR 18 SpO2 (!) 91 % 3 L/min O2 Device: None (Room air) Wt 75.8 kg (167 lb 1.7 oz) Body mass index is 23.31 kg/m??. General: NAD, not participatory with orientation questions HEENT: anicteric sclerae, moist membranes Cardiac: RRR, no m/r/g, no JVD Pulm: CTAB, non-labored. Episode of coughing where it sounded like he was choking on his own sputum, expressed distress during it, recovered after a few seconds and felt fine. Abdomen: soft, NTND Extremities: no edema, warm Neuro: symmetric face, EOMI, fluent speech, moving all limbs Skin: exposed skin w/o rashes/lesions Labs and reports reviewed in the chart. Pertinent findings are noted in the A/P. ASSESSMENT/PLAN 70 y.o. male with PMHx HTN, CKD, schizoaffective disorder, and drug-induced parkinsonism, who initially presented with unresponsiveness, asphaia, and possible left facial droop concerning for stroke versus TME, but with unremarkable workup. Admitted to medicine for monitoring and re-initiation of cl ozapine dosing, now medically stable pending inpatient psych placement for decompensated schizoaffective disorder. ACTIVE ISSUES # Transient unresponsiveness # Schizoaffective disorder # Acute delirium Multiple transient unresponsiveness events; stroke and seizure workup negative (CTH, MRI brain, EEG). Likely acute delirium on background of decompensated schizoaffective disorder. Psychiatry managing clozapine titration and adjuncts; haloperidol for augmentation and agitation. Meets Section 12 criteria. He continues to have periods of minimal responsiveness to stimulation. - Psych following - weekly interdisciplinary meetings Fridays at 1400 - c/w clozapine 25 mg qAM + 125 mg qhs - c/w depakote 250 mg qAM + 500 mg qhs - c/w haloperidol 1 mg bid + 2mg prn - c/w trazodone 150 mg qhs - c/w ramelteon 8 mg qhs - HCP affirmed; cannot leave AMA - Psych placement partially limited by his inability to tolerate PT, psych w plan to titrate medications to hopefully facilitate amenability to PT. # AHRF (resolved) # COVID s/p remdesivir/dex # LLL PNA COVID positive (05/24) with new LLL consolidation; initially hypoxic with tachycardia. C/f for mucus plugging previously during acute hypoxic events. MRSA swab negative; improved with remdesivir, cefepime and dexamethasone. High aspiration risk. - s/p remdesivir 05/24-05/28 (off precautions 06/03) - s/p dexamethasone 05/27-05/30 - c/w cefepime 05/27-present, planned 7-day course (complete 06/02) # hypernatremia (improving) - Improving with PO fluids and increased free water flushes. # Oropharyngeal Dysphagia with G-Tube Dependence Pulled out G-tube twice; replaced 05/12. At risk for aspiration; tolerating some PO liquids with nursing monitoring. - c/w overnight tube feeds - could trial PO if patient amenable - SOLAR DESIGN ENGINEER consult if patient agreeable,limited by agitation/paranoia # Constipation / Diarrhea Hx severe stool burden on clozapine requiring aggressive bowel regimen; now with diarrhea. - adjust bowel reg pending stool output # Sinus Tachycardia Stable sinus tachycardia 90-100s. Will monitor. CHRONIC ISSUES # Drug-induced Parkinsonism: Sinemet tapered and discontinued (05/28) - Continuing reduced dose Sinemet as above; d/c on 05/28 # CAD: c/h atorvastatin # CKD: at baseline Cr # BPH: c/h tamsulosin # GERD: c/h famotidine CORE MEASURES - Access: PIV(s) - DVT ppx: patient refusing - Code Status: Full Code - Contact/HCP: brother Delvin Raymundo [phone] - Dispo: [facility]-psych placement, completion of IV abx course -- Patricia Holden MD Resident, Internal Medicine Cosigned by Urban Mondragon MD at 06/01/2025 12:03 PM EDT Associated attestation - Urban Mondragon MD - 06/01/2025 12:03 PM EDT I have seen and examined the patient, reviewed the findings and plan of care as documented by Dr. Holden and agree, except for any additional comments below. This is a 69 yo M with hx of schizoaffective disorder, drug induced parkinsonism, who presented with unresponsiveness found to have acute hypoxic respiratory failure, COVID, bibasilar pneumonia concerning for aspiration, now improved. #Schizoaffective disorder #Metabolic encephalopathy, delirium #COVID/sepsis/acute hypoxic respiratory failure/bibasilar mucous plugging concerning for aspirationpneumonia #s/p PEG #Hypernatremia #Drug induced parkinsonism A/P #Schizoaffective disorder: has paranoia, no capacity, appreciate psych recs, continue with clozapine 25/125mg, depakote 250/500mg, haldol 1mg BID, trazodone 150mg qhs, PRN haldol IM for acute agitation. Improving mental status, A&Ox3. On [id number], HCP activated. QTC 471 on 05/31. Remains paranoid without agitation or combative behavior. Will discuss with psychiatry as he is getting close to me dical clearance about potential transfer. #Metabolic encephalopathy: presented with AMS, initial code stroke called, CT head without contrastneg. EEG without evidence of seizure. Had MOTOR ROUTE CARRIER on 05/27 for unresponsiveness and hypoxemia likely due to aspiration. A component of delirium as well given medical comorbidities. Low threshold to hold gianni zapine/depakote/gabapentin if unresponsive or increased somnolence. Overall improved, alert and awake, interactive. #COVID/aspiration pneumonia/acute hypoxic respiratory failure: COVID positive on 05/24, fever to 101.5, completed remdesivir, on dex due to O2 requirement since 05/27. Satting well on RA, discontinued dex 05/31 as patient is on RA. CTA showing bibasilar mucous plugging likely due to aspiration, s/p cefepime and vanc, continue cefepime 05/27- for 7 day course with end date of 06/02. Advanced diet to thin liquids on 05/30, will need SOLAR DESIGN ENGINEER re-eval on Sunday given improved mental status. Remains on COVID precautions until 06/03. #Hypernatremia: increase free water flush, likely due to limited po intake, resolved as of 06/01. #Drug induced parkinsonism: s/p sinemet #Dysphagia s/p G tube: will coordinate with RN and SOLAR DESIGN ENGINEER regarding repeat SOLAR DESIGN ENGINEER eval. Continue on TF with [facility]. I spent 52 minutes directly and personally assessing the patient by, but not limited to, obtaining a history; examining the patient; reviewing data; making decisions for treatment, evaluation of patient's response to treatment; documentation of findings; and discussions with other members of the care team. * Ammon Low MD PhD - 05/31/2025 7:02 AM EDT [facility] Medicine Progress Note Patient: Carter Raymundo ( , 1955) Admission Date: 04/15/2025 PCP: Kilo Pinams Inpatient Attending: Urban Mondragon MD INTERVAL 24-hr events: - Yesterday: weaned to RA, more alert/oriented - Overnight: refusing AM insulin and labs AM Subjective: Not participatory with interview. OBJECTIVE Vitals: T 97.9 ??F (36.6 ??C) HR 85 BP (!) 177/82 RR 18 SpO2 96 % 3 L/min O2 Device: None (Room air) Wt 75.8 kg (167 lb 1.7 oz) Body mass index is 23.31 kg/m??. General: NAD, not participatory with orientation questions HEENT: anicteric sclerae, moist membranes Cardiac: RRR, no m/r/g, no JVD Pulm: CTAB, non-labored Abdomen: soft, NTND Extremities: no edema, warm Neuro: symmetric face, EOMI, fluent speech, moving all limbs Skin: exposed skin w/o rashes/lesions Labs and reports reviewed in the chart. Pertinent findings are noted in the A/P. ASSESSMENT/PLAN 70 y.o. male with PMHx HTN, CKD, schizoaffective disorder, and drug-induced parkinsonism, who initially presented with unresponsiveness, asphaia, and possible left facial droop concerning for stroke versus TME, but with unremarkable workup. Admitted to medicine for monitoring and re-initiation of cl ozapine dosing, now medically stable pending inpatient psych placement for decompensated schizoaffective disorder. ACTIVE ISSUES # Transient unresponsiveness # Schizoaffective disorder # Acute delirium Multiple transient unresponsiveness events; stroke and seizure workup negative (CTH, MRI brain, EEG). Likely acute delirium on background of decompensated schizoaffective disorder. Psychiatry managing clozapine titration and adjuncts; haloperidol for augmentation and agitation. Meets Section 12 criteria. - Psych following - weekly interdisciplinary meetings Fridays at 1400 - c/w clozapine 25 mg qAM + 125 mg qhs - c/w depakote 250 mg qAM + 500 mg qhs - c/w haloperidol 1 mg bid + 2mg prn - c/w trazodone 150 mg qhs - c/w ramelteon 8 mg qhs - HCP affirmed; cannot leave AMA # AHRF (resolved) # COVID s/p remdesivir/dex # LLL PNA COVID positive (05/24) with new LLL consolidation; initially hypoxic with tachycardia. MRSA swab negative; improved with remdesivir, cefepime and dexamethasone. Also likely aspiration risk. - s/p remdesivir 05/24-05/28 - s/p dexamethasone 05/27-05/30 - c/w cefepime 05/27-present, planned 7-day course # Oropharyngeal Dysphagia with G-Tube Dependence Pulled out G-tube twice; replaced 05/12. At risk for aspiration; tolerating some PO liquids with nursing monitoring. - c/w overnight tube feeds - could trial PO if patient amenable # Constipation / Diarrhea Hx severe stool burden on clozapine requiring aggressive bowel regimen; now with diarrhea. - adjust bowel reg pending stool output # Sinus Tachycardia Stable sinus tachycardia 90-100s. Will monitor. CHRONIC ISSUES # Drug-induced Parkinsonism: Sinemet tapered and discontinued (05/28) - Continuing reduced dose Sinemet as above; d/c on 05/28 # CAD: c/h atorvastatin # CKD: at baseline Cr # BPH: c/h tamsulosin # GERD: c/h famotidine CORE MEASURES - Access: PIV(s) - DVT ppx: patient refusing - Code Status: Full Code - Contact/HCP: brother Delvin Raymundo [phone] - Dispo: cheli-psych placement, completion of IV abx course -- Ammon Low MD PhD Resident, Internal Medicine Cosigned by Urban Mondragon MD at 05/31/2025 12:12 PM EDT Associated attestation - Urban Mondragon MD - 05/31/2025 12:12 PM EDT I have seen and examined the patient, reviewed the findings and plan of care as documented by Dr. Low and agree, except for any additional comments below. This is a 69 yo M with hx of schizoaffective disorder, drug induced parkinsonism, who presented with unresponsiveness found to have acute hypoxic respiratory failure, COVID, bibasilar pneumonia concerning for aspiration. #Schizoaffective disorder #Metabolic encephalopathy, delirium #COVID/sepsis/acute hypoxic respiratory failure/bibasilar mucous plugging concerning for aspirationpneumonia #s/p PEG #Hypernatremia #Drug induced parkinsonism A/P #Schizoaffective disorder: has paranoia, no capacity, appreciate psych recs, continue with clozapine 25/125mg, depakote 250/500mg, haldol 1mg BID, trazodone 150mg qhs, PRN haldol IM for acute agitation. Improving mental status, A&Ox3. On [id number], HCP activated. QTC 471 on 05/31. #Metabolic encephalopathy: presented with AMS, initial code stroke called, CT head without contrastneg. EEG without evidence of seizure. Had MOTOR ROUTE CARRIER on 05/27 for unresponsiveness and hypoxemia likely due to aspiration. A component of delirium as well given medical comorbidities. Low threshold to hold gianni zapine/depakote/gabapentin if unresponsive or increased somnolence. Overall improved, alert and awake, interactive. #COVID/aspiration pneumonia/acute hypoxic respiratory failure: COVID positive on 05/24, fever to 101.5, completed remdesivir, on dex due to O2 requirement since 05/27. Satting well on RA, discontinue dex05/31 as patient is on RA. CTA showing bibasilar mucous plugging likely due to aspiration, s/p cefepime and vanc, continue cefepime 05/27- for 7 day course. Advanced diet to thin liquids on 05/30, will need SOLAR DESIGN ENGINEER re-eval on Sunday given improved mental status. Remains on COVID precautions until 06/03. #Hypernatremia: increase free water flush, likely due to limited po intake, labs were declined today. #Drug induced parkinsonism: s/p sinemet I spent 50 minutes directly and personally assessing the patient by, but not limited to, obtaining a history; examining the patient; reviewing data; making decisions for treatment, evaluation of patient's response to treatment; documentation of findings; and discussions with other members of the care team. * Patricia Holden MD - 05/30/2025 7:00 AM EDT [facility] Department of Medicine [facility] Medicine Progress Note Patient: Carter Raymundo Admission Date: 04/15/2025 Length of Stay: 44 PCP: Kilo Huynh Attending: Raiba Velasco MD Chief Complaint: Altered mental status OVERNIGHT EVENTS No acute overnight events SUBJECTIVE Carter had an uneventful night. He was on room air last night, which is a marked improvement from 2days ago. This morning Carter was very awake, non-agitated, and alert and able to interact. He expressed that he feels like there is something he wants to communicate but is struggling to find what it is that he wants to say. He was able to express that he was thirsty and would be very interested in some orange juice. However, continued to have ongoing paranoia and was worried that his nurse overnight was out to get him . He expressed feeling sad and anxious, and had short term memory loss, asking repetitive questions. He was amenable to having the orange juice presented by his daytime nurse, which reportedly went well. He was able to come off wrist restraints this morning. Notified psych of interval improvement. OBJECTIVE DATA VITALS T 98.4 ??F (36.9 ??C) HR (!) 94 BP (!) 147/76 RR 20 SpO2 100 % 3 L/min O2 Device: Aerosol mask 75.8 kg (167 lb 1.7 oz) Body mass index is 23.31 kg/m??. PHYSICAL EXAM GENERAL: NAD, awake HEENT: No scleral icterus, moist mucous membranes. CARDIAC: Clinically well perfused. Tachycardic. LUNG: no respiratory distress, on room air, not SOB with talking. ABD: No abdominal abnormalities on inspection. MSK: No focal joint swelling or deformities. No lower extremity tremors or abnormal movements notedon exam, but patient refused lower extremity examination. NEURO: asleep SKIN: No significant rashes, sores or wounds noted on exposed skin. PSYCH: see subjective LABS, MICROBIOLOGY and STUDIES reviewed in Epic. ASSESSMENT & PLAN Carter Raymundo is a 69 y.o. male with a relevant past medical history of HTN, CKD, schizoaffectivedisorder, and drug-induced parkinsonism, who initially presented with unresponsiveness, asphaia, and possible left facial droop concerning for stroke versus TME, but with unremarkable workup. Admitted to medicine for monitoring and re-initiation of clozapine dosing, now medically stable pending inpatient psych placement for decompensated schizoaffective disorder. ACTIVE ISSUES # Brief episode of unresponsiveness # Schizoaffective disorder # Acute delirium Patient initially presenting with acute onset of unresponsiveness, aphasia, and concern for ?facialasymmetry. CTH w/o stroke. MRIb normal. Workup for toxic metabolic encephalopathy negative. Multiple EEGs with no evidence of seizures. During admission, has had multiple triggers called for unresponsiveness (not true catatonia per psych) with no clear trigger. Labs from triggers thus far have all been unremarkable. His ongoing presentation is likely secondary to acute delirium superimposed on known decompensated schizoaffective disorder that is persistent even with careful titration of his psychiatric medications. Cx - Per Neuro, no clear neurologic explanation for episodes of unresponsiveness - Psych following, appreciate recs Dx - QTC mildly prolonged, EKG w QTC 508, EKG 05/30 Tx - Holding home buproprion 100mg TID for now per Psychiatry - Psych adjusting clozapine dosinmg qAM + 125mg qHS per Psychiatry. - Adjusted depakote to 250 qam and 500 at night to help with sleep on 05/27 - Continue standing haloperidol 1 mg BID to augment treatment for psychosis - Completed sinemet taper 05/27 - C/h trazodone 150mg qHs - Agitation: haloperidol 2 mg IM PRN. D/c'ed Ativan in case that is worsening delirium - Ramelteon 8 mg at bedtime - Hold if unarousable: clozapine/ depakote/ gabapentin/ trazadone - Per psych meets section 12 criteria, cannot leave AMA. HCP has been affirmed. - Plan for weekly interdisciplinary meetings on Sunday 2pm - liquids PO - can give some free water flushes. # COVID + # Sepsis, # Acute hypoxic respiratory failure, improving # LLL Consolidation c/f pneumonia # mild hypernatremia RVP sent 05/24 for increased tachycardia and transient hypoxemia. COVID positive. CXR with new LLL consolidation (prior XR 2 days prior). Started Remdesivir 05/24 with white count stable. He has been refusing the Lovenox for several weeks and now having intermittent O2 demand and tachycardic. On 05/27 patient had an episode of desats during the day that improved with suction and removal of mucus, with increased O2 requirement with face tent sporadically, with a dsat overnight and altered mental status, with workup reassuring for acute intracranial pathology or PE. Worsening likely iso COVID and progressing pneumonia, with imaging on 05/27 was suspicious for and patient was subsequently started on Cefepime/Vanco, with vanco d/c after negative MRSA swab. Marked improvement in respiratory status s/pcefepime and dexamethasone. Dx - pending respiratory culture tx - scheduled guaifenesin. - Transition to daily CBC to monitor WBC iso pneumonia - mucomyst with duonebs - hypertonic saline - Dex 6mg PO for 10 days ending 06/06 - Continue cefepime started 05/27 (for 7 days) - trial PO liquids with nursing bedside swallow. Mildly hyponatremic iso likely dehydration, can add free water flushes. #Constipation # Diarrhea Severe stool burden on KUB while on clozapine. Requires an intense bowel regimen in order to keep him regular. Now with diarrhea, de-escalating bowel reg minimally - Bowel reg: scheduled Miralax, senna BID, lactulose - adjustments to bowel reg with diarrhea - Mag citrate 05/19, 05/20 - Large BM 05/21 and 83pm, 05/26 # Dysphagia with G tube reliance Patient with history of oropharyngeal dysphagia. Pulled out G tube 04/19 AM and again 05/11 overnight. - G tube replaced with IR 05/12, overnight tube feeds. # Transient hypoxia # C/f aspiration pneumonitis Patient with history of oropharyngeal dysphagia with G tube in place. Brief episode of hypoxia on admission that resolved quickly, possible 2/2 aspiration. At the [facility], he is on a pureed diet. High risk for aspiration. - Liquids with nursing monitoring - Deferring SOLAR DESIGN ENGINEER for now; consider SOLAR DESIGN ENGINEER if maintains alertness and cooperability as seen on 05/30 - Nutrition consulted, appreciate recs # Sinus Tachycardia Pt consistently tachycardic in 90s - low 100s during this hospitalization. EKG's to date all consistent with sinus tachycardia. - CTM CHRONIC / STABLE ISSUES # Drug-induced Parkinsonism - Continuing reduced dose Sinemet as above; d/c on 05/28 # CAD # HTN - C/h statin # CKD - Trending Cr, currently at baseline # BPH - C/h tamsulosin # GERD - C/h pepcid CORE MEASURES - FEN: IVF PRN, replenish electrolytes, Diet Modified Texture; Pureed; Thin Liquids; Deliver To Nursing, Finger Foods/No Utensils, No Sharps, Safety Tray - PAML complete - Functional Status: Independent without use of assistive devices for ambulation - DVT prophylaxis: SC low molecular weight heparin (refusing) - Access: None - Code: Full Code - Contact: brother Lr, Patient Contacts Name Legal Rel Relationship Phone Active Delvin Raymundo Health Care Agent Brother Yes - Disposition: -- Anticipated discharge to: [facility]-psych -- Anticipated discharge date: t+2 -- Anticipated discharge barriers: Pending placement Extended Emergency Contact Information Primary Emergency Contact: Delvin Raymundo Mobile Relation: Brother Silver Solderer needed? No Patricia Holden MD PGY-1 Dept of Medicine Cosigned by Urban Mondragon MD at 05/30/2025 4:50 PM EDT Associated attestation - Urban Mondragon MD - 05/30/2025 4:50 PM EDT I have seen and examined the patient, reviewed the findings and plan of care as documented by Dr. Holden and agree, except for any additional comments below. This is a 69 yo M with hx of schizoaffective disorder, drug induced parkinsonism, who presented with unresponsiveness found to have acute hypoxic respiratory failure, COVID, bibasilar pneumonia concerning for aspiration. #Schizoaffective disorder #Metabolic encephalopathy, delirium #COVID/sepsis/acute hypoxic respiratory failure/bibasilar mucous plugging concerning for aspirationpneumonia #s/p PEG #Hypernatremia #Drug induced parkinsonism A/P #Schizoaffective disorder: has paranoia, no capacity, appreciate psych recs, continue with clozapine 25/125mg, depakote 250/500mg, haldol 1mg BID, trazodone 150mg qhs, PRN haldol IM for acute agitation. Improving mental status today, A&Ox3. On [id number], HCP activated. Check Qtc tomorrow, last Qtc 05/29 510. #Metabolic encephalopathy: presented with AMS, initial code stroke called, CT head without contrastneg. EEG without evidence of seizure. Had MOTOR ROUTE CARRIER on 05/27 for unresponsiveness and hypoxemia likely due to aspiration. A component of delirium as well given medical comorbidities. Low threshold to hold gianni zapine/depakote/gabapentin if unresponsive or increased somnolence. #COVID/aspiration pneumonia/acute hypoxic respiratory failure: COVID positive on 05/24, fever to 101.5, completed remdesivir, on dex due to O2 requirement since 05/27. Satting well on RA, can discontinuedex after today. CTA showing bibasilar mucous plugging likely due to aspiration, s/p cefepime and vanc, continue cefepime 05/27- for 7 day course. Advanced diet to thin liquids today, will need SOLAR DESIGN ENGINEER re-eval on Sunday given improved mental status. #Hypernatremia: increase free water flush, likely due to limited po intake #Drug induced parkinsonism: s/p sinemet I spent 60 minutes directly and personally assessing the patient by, but not limited to, obtaining a history; examining the patient; reviewing data; making decisions for treatment, evaluation of patient's response to treatment; documentation of findings; and discussions with other members of the care team. * Madelyn Bailey RN - 05/30/2025 3:41 AM EDT Pt a+ox to self refusing to answer any further orientation questions this shift, pt cont with paranoid thoughts that you are trying to kill me pt frequently yelling out. Pt o2 sat stable ra + congested cough, intermittently refusing nebulizers; cont on cm # 5 sr-st no ectopy noted; abd soft nt,nd + bs no stool this shift bowel meds given as ordered, tube feed at goal tolerating well, meds given via peg, attempted to give po depakote and other not crushable meds with small amount ice cream ptagreeable then put into mouth and spit out, attempted again and pt cont to spit out saying you are poisoning me Justin aware, attempted several hours later with depakote per md request and pt did tolerate with much encouragement; pt frequently asking to drink offered mouth care when attemptedpt clamping mouth shut and refusing; male purewick intact pt voiding dark conc urine, pt t+r prn t/o night, swr in place to maintain lines and due to pt noncompliance with care, iv abx infusing as ordered, waffle boots to bilat le, 1;1 sitter maintained * Nilam Weinberg RN - 05/29/2025 4:50 PM EDT Case Management - Progress Note Patient: Carter Raymundo : 1955 Attending: Rabia Velasco MD Admit Date: 04/15/2025 Inpatient Status Admit Date: 04/16/25 Primary Care Physician: Kilo Huynh Discussed at [facility]. MANJIT: Steffen Bower Psych Bed: On bed search list. Nilam Weinberg RN 05/29/2025 * Patricia Holden MD - 05/29/2025 7:59 AM EDT Images from the original note were not included. [facility] Department of Medicine [facility] Medicine Progress Note Patient: Carter Raymundo Admission Date: 04/15/2025 Length of Stay: 43 PCP: Kilo Huynh Attending: Rabia Velasco MD Chief Complaint: Altered mental status OVERNIGHT EVENTS No acute overnight events SUBJECTIVE Carter had an uneventful night. He appears to have improved this morning and is now just on nasal cannula (5L) not face tent. Per nursing he has had a lot of diarrhea in the last 24 hours and has been very active and agitated, with continued paranoia. OBJECTIVE DATA VITALS T 97.7 ??F (36.5 ??C) HR (!) 93 BP (!) 148/90 RR (!) 22 SpO2 100 % 4 L/min O2 Device: Nasal cannula 75.8 kg (167 lb 1.7 oz) Body mass index is 23.31 kg/m??. PHYSICAL EXAM GENERAL: NAD, resting in bed, sleeping, sleeping, 5L NC satting well HEENT: No scleral icterus, moist mucous membranes. CARDIAC: Clinically well perfused. Tachycardic. LUNG: Appears in no acute respiratory distress, noted to have some upper airway mucus with intermittent coughing. Referred lungs sounds from upper airway, improved from day prior. ABD: No abdominal abnormalities on inspection. MSK: No focal joint swelling or deformities. No lower extremity tremors or abnormal movements notedon exam, but patient refused lower extremity examination. NEURO: asleep SKIN: No significant rashes, sores or wounds noted on exposed skin. PSYCH: agitated, paranoid LABS, MICROBIOLOGY and STUDIES reviewed in Epic. ASSESSMENT & PLAN Carter Raymundo is a 69 y.o. male with a relevant past medical history of HTN, CKD, schizoaffectivedisorder, and drug-induced parkinsonism, who initially presented with unresponsiveness, asphaia, and possible left facial droop concerning for stroke versus TME, but with unremarkable workup. Admitted to medicine for monitoring and re-initiation of clozapine dosing, now medically stable pending inpatient psych placement for decompensated schizoaffective disorder. ACTIVE ISSUES # Brief episode of unresponsiveness # Schizoaffective disorder # Acute delirium Patient initially presenting with acute onset of unresponsiveness, aphasia, and concern for ?facialasymmetry. CTH w/o stroke. MRIb normal. Workup for toxic metabolic encephalopathy negative. Multiple EEGs with no evidence of seizures. During admission, has had multiple triggers called for unresponsiveness (not true catatonia per psych) with no clear trigger. Labs from triggers thus far have all been unremarkable. His ongoing presentation is likely secondary to acute delirium superimposed on known decompensated schizoaffective disorder that is persistent even with careful titration of his psychiatric medications. Cx - Per Neuro, no clear neurologic explanation for episodes of unresponsiveness - Psych following, appreciate recs Dx - QTC mildly prolonged, EKG w QTC 508, EKG 05/30 Tx - Holding home buproprion 100mg TID for now per Psychiatry - Psych adjusting clozapine dosinmg qAM + 125mg qHS per Psychiatry. - Adjusted depakote to 250 qam and 500 at night to help with sleep on 05/27 - Continue standing haloperidol 1 mg BID to augment treatment for psychosis - Completed sinemet taper 05/27 - C/h trazodone 150mg qHs - Agitation: haloperidol 2 mg IM PRN. D/c'ed Ativan in case that is worsening delirium - Ramelteon 8 mg at bedtime - Hold if unarousable: clozapine/ depakote/ gabapentin/ trazadone - Per psych meets section 12 criteria, cannot leave AMA. HCP has been affirmed. - Plan for weekly interdisciplinary meetings on Sunday 2pm # COVID + # Sepsis # Acute hypoxic respiratory failure, improving # LLL Consolidation c/f pneumonia # Not anticoagulated RVP sent 05/24 for increased tachycardia and transient hypoxemia. COVID positive. CXR with new LLL consolidation (prior XR 2 days prior). Started Remdesivir 05/24 with white count stable. He has been refusing the Lovenox for several weeks and now having intermittent O2 demand and tachycardic. On 05/27 patient had an episode of desats during the day that improved with suction and removal of mucus, with increased O2 requirement with face tent sporadically, with a dsat overnight and altered mental status, with workup reassuring for acute intracranial pathology or PE. Worsening likely iso COVID and progressing pneumonia, which imaging on 05/27 was suspicious for and patient was subsequently started on Cefepime/Vanco, with vanco d/c after negative MRSA swab. - Starting remdesivir for COVID (medication interactions w/ Paxlovid) - At this time, suspect lung consolidation is related to COVID rather than new PNA, especially given pt does not have an increased WBC. Will treat COVID for now and consider additional HAP coverage if he does not improve. - scheduled guaifenesin. - Transition to daily CBC to monitor WBC iso possible PNA - mucomyst with duonebs - hypertonic saline - Dex 6mg PO for 10 days ending 06/06 - Continue cefepime started 05/27 - trial tube feeds and with fluids, consider IV fluids if not tolerating tube. Appears to be dry iso elevated BUN. #Constipation Severe stool burden on KUB while on clozapine. Requires an intense bowel regimen in order to keep him regular. - Bowel reg: scheduled Miralax, senna BID, lactulose - adjustments to bowel reg with diarrhea - Mag citrate 05/19, 05/20 - Large BM 05/21 and 8/3pm, 05/26 - KUB to assess for stool burden, was distended yesterday. # Dysphagia with G tube reliance Patient with history of oropharyngeal dysphagia. Pulled out G tube 04/19 AM and again 05/11 overnight. - G tube replaced with IR 05/12, overnight tube feeds. # Transient hypoxia # C/f aspiration pneumonitis Patient with history of oropharyngeal dysphagia with G tube in place. Brief episode of hypoxia on admission that resolved quickly, possible 2/2 aspiration. At the [facility], he is on a pureed diet. High risk for aspiration. 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 EKG's to date all consistent with sinus tachycardia. - CTM CHRONIC / STABLE ISSUES # Drug-induced Parkinsonism - Continuing reduced dose Sinemet as above; d/c on 05/28 # CAD # HTN - C/h statin # CKD - Trending Cr, currently at baseline # BPH - C/h tamsulosin # GERD - C/h pepcid CORE MEASURES - FEN: IVF PRN, replenish electrolytes, Diet Modified Texture; Pureed; Thin Liquids; Deliver To Nursing, Finger Foods/No Utensils, No Sharps, Safety Tray - PAML complete - Functional Status: Independent without use of assistive devices for ambulation - DVT prophylaxis: SC low molecular weight heparin (refusing) - Access: None - Code: Full Code - Contact: jose elias Lrer, Patient Contacts Name Legal Rel Relationship Phone Active Delvin Raymundo Health Care Agent Brother Yes - Disposition: -- Anticipated discharge to: [facility] -- Anticipated discharge date: t+2 -- Anticipated discharge barriers: Pending placement Extended Emergency Contact Information Primary Emergency Contact: Delvin Raymundo Mobile Relation: Brother Silver Solderer needed? No Patricia Holden MD PGY-1 Dept of Medicine Cosigned by Rabia Velasco MD at 05/29/2025 1:11 PM EDT Associated attestation - Rabia Velasco MD - 05/29/2025 1:11 PM EDT I have seen and examined the patient, reviewed the findings and plan of care as documented by Dr. Holden and agree, except for any additional comments below. Mr. Raymundo: 69M hx Schizoaffective disorder c/b drug-induced parkinsonism, HTN, and oropharyngeal dysphagia s/p G-tube on TF who p/w L facial droop with negative stroke workup c/f psychiatric decompensation awaiting psych bed. C/c/b acute hypoxic respiratory failure 2/2 COVID pneumonia (positive on05/24) s/p remdesivir and dexamethasone, likely multifocal aspiration pneumonia, and severe mucous plugging. Pt more alert and engaging today, speaking in full sentences and having a conversation with me today. Is very wary of the sitter and appears to be having paranoid delusions. Respiratory status improved, weaned down to room air saturating at 97% during my visit. Continue aggressive pulmonary toilet,cefepime x7 days for severe HAP, has completed 5 days of remdesivir, and plan for 10 days of dex 6 or until patient is discharged. Serum Na and BUN increasing today in the setting of holding TF for aspiration. Will resume TF todayand if unable to tolerate, would give IVF instead. Pt also reports feeling very thirsty which is c/w dehydration. Having multiple loose stools, will back off on his aggressive regimen but will need to keep a close eye as he's on clozapine and is relatively immobile and has been severe constipated previously. Weekly Sunday 2pm meeting with Psych was deferred this week for patient's acute illness. Will re-engage next week if patient is medically stable. Anticipated discharge date: >3 days, may be delayed for COVID quarantine status Discharge location: [facility] Rabia Velasco MD Section of Hospital Medicine [facility] * Madelyn Bailey RN - 05/29/2025 1:49 AM EDT Pt A+Ox3 sleepy but arousable, cont to yell out intermittently , swr on to maintain line integrity d/cd at 230am cont to montitor behavior,pt cont to take o2 off needs frequent reminders to leave in place, pt with impulsive movements at times with flushing iv, or t+r in bed; cont to be npo, did give depakote sprinkles in ice cream as unable to be given via peg as clogs extension tube of peg; malepurewick intact minimal urine output, bladder scan for 437 cont to monitor pt able to void large amount diaz urine. Very large loose bm ;T+r prn overnight in bed with pillow support, waffle boots intact to le;, iv leaking new hl placed given iv abx as ordered; frequent safety checks cont with 1:1 sitter; cont on cm # 5 sr-st no ectopy noted o2 sat stable 4l nc, nebs given as ordered attempt to wean when pt more awake * Kimani Rivas MD - 05/28/2025 9:42 AM EDT Images from the original note were not included. [facility] PSYCHIATRIC CONSULTATION FOLLOW-UP NOTE INTERVAL HPI: - Patient triggered overnight for worsening acute hypoxic respiratory failure iso COVID infx/pneumonia - Nursing reports patient intermittently arousable, responsive - Patient placed in soft wrist restraints b/l as he kept removing NC Patient unable to engage in interview today due to altered mental status. He is not responsive to questions, minimally responsive to noxious stimulus, He intermittently expresses distress in the formof yelling and moving around in bed. REVIEW OF SYSTEMS: As per HPI EXAM: 05/28/2025 8:30 AM Vital Signs Temperature 97.9 ??F (36.6 ??C) Heart Rate 110 Respiration 20 SpO2 94 % Blood Pressure 133/83 Neurological: Motor: minimally responsive to noxious stimuli; demonstrates spontaneous movements of extremities Cognitive: Wakefulness/alertness: obtunded, minimally arousable to noxious stimuli Orientation: unable to assess Attention: Unable to assess Memory: unable to assess Mental Status: Appearance: appears stated age, in acute distress, unkempt, in hospital gown, in b/l soft wrist restraints Behavior: unable to engage Mood: ... Affect: flat, stable Speech: no speech Thought process: unable to assess Thought content and perceptions: unable to assess Insight and judgment: limited/limited MEDICATIONS: Scheduled Meds:Scheduled Medications[1] Continuous Infusions:Infusions Meds[2] PRN Meds:.PRN Medications[3] DATA: Reviewed. ASSESSMENT: Carter Raymundo is a 69 y.o. male with past psych history of schizoaffective disorder on clozapine,past medical history of hypertension, CKD, oropharyngeal dysphagia c/b frequent aspiration now s/p PEG, drug-induced Parkinsonism, who presented from nursing facility with altered mental status with unresponsiveness and aphasia, now medically cleared. Psychiatry initially consulted for assistance with diagnostic clarification, with initial differential ddx of catatonia vs delirium/encephalopathy vs decompensated psychosis. On evaluation today, patient presents as obtunded and minimally arousable to noxious stimuli in thesetting of acute medical illness. Newly diagnosed COVID infection and associated complications likely contributing to worsening mental status in the form of acute delirium. Patient is tachycardic, has elevated white count, CRP elevated, CXR c/f new LLL consolidation; started on remdesivir + cefepime/vancomycin (vanco now d/c'ed). Presentation today appears consistent with previous observations during this admission when medically ill. As before, no changes in management from psych perspective; would continue to treat underlying cause contributing to delirium as you are doing for now. Will cont inue to optimize psychiatric medication list as he recovers from acute medical illness. Would hold sedating medications iso concern for oversedation or confusion. Patient presentation currently consistent with acute psychosis in the setting of schizoaffective disorder, delirium and/or underlying neurocognitive disorder (not previously diagnosed per records). Presentation today acutely worsening in the setting of medical illness as above, more consistent withacute hypoactive delirium. Presentation of altered mental status also similar to prior: catatonia was deemed unlikely given isolated symptom of mutism, intermittent stupor without muscle rigidity/waxy flexibility, and also the limited effect of benzodiazepines on clinical course. No structural intracranial abnormalities on imaging. Multiple EEGs demonstrate no seizure, findings more consistent with delirium but non-specific. Regarding psychiatric symptoms, he is paranoid, endorses delusions, has endorsed SI, made verbal threats to staff, does not have known AVH. Holding bupropion, lowering Sinemet dose as able to facilitate decrease in agitation which appears primarily related to psychosis at this time. Currently on previous home clozapine dose. Brother reports at baseline patient is relatively high-functioning, pleasant, not overtly paranoid. At this point, no concern for acute medicalillness, and behavior seems primarily related to underlying schizoaffective disorder. Primary medical team has cleared patient for inpatient psychiatric bed placement. Weekly interdisciplinary meeting held 05/22 to discuss patient's recent behavior and dispo barriers; plan for follow up tomorrow. Addressing agitation and psychosis with scheduled clozapine, depakote, Haldol. For dispo, patient will need to demonstrate improvement in mobility (first actionable goal out of bed to chair), cooperation with care. HCP affirmed on 05/20 for substitute decision making. Patient on section 12 due to inability to care for self and acute risk of psychiatric decompensation, bed search in progress. DSM-5 DIAGNOSIS: Delirium (hypoactive) Schizoaffective disorder R/o unspecified neurocognitive disorder RECOMMENDATIONS: #LEGAL Patient remains on section 12, cannot leave AMA, bed search in progress Continue 1:1 sitter #MANAGEMENT Note last Qtc: 468 on 05/27 - [place]; consider repeat EKG q2-3 days as able for monitoring of QTc Continue delirium precautions --> Emphasize strong diurnal cues including windows open during day, limit disruptions overnight, practice avoidance of deliriogenic drugs as possible, mobilize throughout the day as possible, optimize nutrition, ensure normal regular bowel movements, and treat pain to the extent possible Clozapine dosing: c/w 25mg qAM+150mg qHS (may hold for sedation if patient unarousable) C/w depakote 250mg qAM + 500mg qHS (may hold for sedation if patient unarousable) Please continue efforts to ensure bowel movement while on clozapine with consistent documentation bowel movements C/w gabapentin dose to 100 mg qAM+300mg QHS (may hold for sedation if patient unarousable) Continue to hold Wellbutrin 100 mg TID Continue ramelteon 8 mg QHS Continue trazodone 150 mg QHS (may hold for sedation if patient unarousable) Continue standing Haldol 1mg PO BID Consider standing acetaminophen for pain For mild/moderate agitation, offer haloperidol 2mg PO BID PRN May give Haldol 2 mg IM PRN for refractory acute agitation, monitoring closely for EPS; may repeat same dose if no response in 30 mins; would re-engage psychiatry if requiring multiple doses Please note benzodiazepines may worsen acute delirium Psychiatry will continue to follow Kimani Rivas MD PGY2, Department of Psychiatry Psychiatry Consultation-Liaison Service Case staffed with attending psychiatrist Dr. Kymberly Mata. Please page [phone] overnight for any questions or concerns regarding acute psychiatric emergencies. [1] acetaminophen, 1,000 mg, G-tube, Q8H CLAUDIA acetylcysteine, 600 mg, Nebulization, Q4H CLAUDIA atorvaSTATin, 20 mg, G-tube, QHS benzonatate, 100 mg, Oral, TID [Held by provider] buPROPion, 100 mg, G-tube, TID cefepime, 2 g, Intravenous, Q12H cloZAPine, 150 mg, G-tube, QHS cloZAPine, 25 mg, G-tube, Daily divalproex, 250 mg, Oral, QAM And divalproex, 500 mg, Oral, QPM enoxaparin, 40 mg, Subcutaneous, Q24H CLAUDIA famotidine, 20 mg, G-tube, BID gabapentin, 100 mg, G-tube, QAM gabapentin, 300 mg, G-tube, QHS guaiFENesin ER, 600 mg, Oral, BID haloperidoL, 1 mg, G-tube, BID haloperidol lactate, 2 mg, Intramuscular, Once insulin regular, 0-12 Units, Subcutaneous, Q6H CLAUDIA ipratropium-albuteroL, 3 mL, Nebulization, Q4H lactulose, 20 g, G-tube, TID lidocaine, 1 patch, Topical, Q24H lidocaine, 1 patch, Topical, Q24H magnesium citrate, 74 mL, G-tube, Daily multivitamin with minerals, 15 mL, G-tube, Daily sodium chloride, 3 mL, Intravenous, Q12H CLAUDIA polyethylene glycol, 17 g, G-tube, BID ramelteon, 8 mg, G-tube, QHS remdesivir, 100 mg, Intravenous, Q24H sennosides, 17.6 mg, G-tube, BID tamsulosin, 0.4 mg, G-tube, QHS traZODone, 150 mg, G-tube, Nightly vancomycin, 1,000 mg, Intravenous, Q12H vancomycin per pharmacy protocol, 1 each, Miscellaneous, See Admin Instructions [2] [3] bisacodyl calcium carbonate dextrose oral gel OR dextrose 50% OR dextrose 50% OR glucagon (human recombinant) iohexoL Insert and Maintain Peripheral IV AND sodium chloride AND sodium chloride Cosigned by Kymberly Mata MD at 05/28/2025 10:22 PM EDT Associated attestation - Kymberly Mata MD - 05/28/2025 10:22 PM EDT I was present with the resident during the evans portions of the service. I discussed the case with the resident and agree with the findings and plan as documented in the resident's note. * Patricia Holden MD - 05/28/2025 6:58 AM EDT [facility] Department of Medicine [facility] Medicine Progress Note Patient: Carter Raymundo Admission Date: 04/15/2025 Length of Stay: 42 PCP: Kilo Huynh Attending: Rabia Velasco MD Chief Complaint: Altered mental status OVERNIGHT EVENTS Patient triggered on floor for acute change in MS, largely unresponsive, and increasing oxygen requirements up to 10 L on face tent, with dramatic improvement in breathing after suctioning and removal of mucus. - CT head without bleed/ CTPE without PE - Held tube feeds - 500 cc bolus - 6mg dexamethasone dose - ICU was consulted. Considering mucus plugging iso COVID infx given immediate improvement in oxygenation and mental status after coughing/clearing airway vs. Less likely PE vs. Stroke. Appears to be awake and protectingairway at this time, with improvement in SpO2. SUBJECTIVE Sleeping in bed, non-interactive. On 10L of Face Tent. OBJECTIVE DATA VITALS T 98.7 ??F (37.1 ??C) HR (!) 106 BP 121/74 RR 20 SpO2 97 % 10 L/min O2 Device: Face tent (+ 2L NC) 75.8 kg (167 lb 1.7 oz) Body mass index is 23.31 kg/m??. PHYSICAL EXAM GENERAL: NAD, resting in bed, sleeping, non-arousable to voice/touch/pain but satting well on 10L of the Face Tent. HEENT: No scleral icterus, moist mucous membranes. CARDIAC: Clinically well perfused. Tachycardic. LUNG: Appears in no acute respiratory distress, but with some gasping occasionally. Noted to have some upper airway mucus with intermittent coughing. Referred lungs sounds from upper airway. ABD: No abdominal abnormalities on inspection. MSK: No focal joint swelling or deformities. No lower extremity tremors or abnormal movements notedon exam, but patient refused lower extremity examination. NEURO: asleep SKIN: No significant rashes, sores or wounds noted on exposed skin. PSYCH: overnight was agitated LABS, MICROBIOLOGY and STUDIES reviewed in [facility]. ASSESSMENT & PLAN Carter Raymundo is a 69 y.o. male with a relevant past medical history of HTN, CKD, schizoaffectivedisorder, and drug-induced parkinsonism, who initially presented with unresponsiveness, asphaia, and possible left facial droop concerning for stroke versus TME, but with unremarkable workup. Admitted to medicine for monitoring and re-initiation of clozapine dosing, now medically stable pending inpatient psych placement for decompensated schizoaffective disorder. ACTIVE ISSUES # Brief episode of unresponsiveness # Schizoaffective disorder # Acute delirium Patient initially presenting with acute onset of unresponsiveness, aphasia, and concern for ?facialasymmetry. CTH w/o stroke. MRIb normal. Workup for toxic metabolic encephalopathy negative. Multiple EEGs with no evidence of seizures. During admission, has had multiple triggers called for unresponsiveness (not true catatonia per psych) with no clear trigger. Labs from triggers thus far have all been unremarkable. His ongoing presentation is likely secondary to acute delirium superimposed on known decompensated schizoaffective disorder that is persistent even with careful titration of his psychiatric medications. Cx - Per Neuro, no clear neurologic explanation for episodes of unresponsiveness - Psych following, appreciate recs Dx - QTC mildly prolonged, EKG w QTC 508 Tx - Holding home buproprion 100mg TID for now per Psychiatry - Psych adjusting clozapine dosinmg qAM + 125mg qHS per Psychiatry. Consider holding iso possible over sedation. - Adjusted depakote to 250 qam and 500 at night to help with sleep on 05/27, may have contributed to decreased LOC today. Consider holding iso over sedation - Continue standing haloperidol 1 mg BID to augment treatment for psychosis - Completed sinemet taper 05/27 - C/h trazodone 150mg qHs - Agitation: haloperidol 2 mg IM PRN. D/c'ed Ativan in case that is worsening delirium - Ramelteon 8 mg at bedtime - Per psych meets section 12 criteria, cannot leave AMA. HCP has been affirmed. - Plan for weekly interdisciplinary meetings on Sunday 2pm # COVID + # Sepsis # Acute hypoxic respiratory failure # LLL Consolidation c/f pneumonia # Not anticoagulated RVP sent 05/24 for increased tachycardia and transient hypoxemia. COVID positive. CXR with new LLL consolidation (prior XR 2 days prior). Started Remdesivir 05/24 with white count stable. He has been refusing the Lovenox for several weeks and now having intermittent O2 demand and tachycardic. On 05/27 patient had an episode of desats during the day that improved with suction and removal of mucus, with increased O2 requirement with face tent sporadically, with a dsat overnight and altered mental status, with workup reassuring for acute intracranial pathology or PE. Worsening likely iso COVID and progressing pneumonia, which imaging on 05/27 was suspicious for and patient was subsequently started on Cefepime/Vanco, with vanco d/c after negative MRSA swab. - Starting remdesivir for COVID (medication interactions w/ Paxlovid) - At this time, suspect lung consolidation is related to COVID rather than new PNA, especially given pt does not have an increased WBC. Will treat COVID for now and consider additional HAP coverage if he does not improve. - scheduled guaifenesin. - Transition to daily CBC to monitor WBC iso possible PNA - mucomyst with duonebs - hypertonic saline - Dex dose overnight, start course of steroid 10 day course dex 6mg. - Continue cefepime - d/c vanco - MRSA swab #Constipation Severe stool burden on KUB while on clozapine. Requires an intense bowel regimen in order to keep him regular. - Bowel reg: scheduled Miralax, senna BID, lactulose - Mag citrate 05/19, 05/20 - Large BM 05/21 and 8/3pm, 05/26 - KUB to assess for stool burden. # Dysphagia with G tube reliance Patient with history of oropharyngeal dysphagia. Pulled out G tube 04/19 AM and again 05/11 overnight. - G tube replaced with IR 05/12, overnight tube feeds. # Transient hypoxia # C/f aspiration pneumonitis Patient with history of oropharyngeal dysphagia with G tube in place. Brief episode of hypoxia on admission that resolved quickly, possible 2/2 aspiration. At the [facility], he is on a pureed diet. High risk for aspiration. 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 EKG's to date all consistent with sinus tachycardia. - CTM CHRONIC / STABLE ISSUES # Drug-induced Parkinsonism - Continuing reduced dose Sinemet as above; d/c on 05/28 # CAD # HTN - C/h statin # CKD - Trending Cr, currently at baseline # BPH - C/h tamsulosin # GERD - C/h pepcid CORE MEASURES - FEN: IVF PRN, replenish electrolytes, Diet Modified Texture; Pureed; Thin Liquids; Deliver To Nursing, Finger Foods/No Utensils, No Sharps, Safety Tray - PAML complete - Functional Status: Independent without use of assistive devices for ambulation - DVT prophylaxis: SC low molecular weight heparin (refusing) - Access: None - Code: Full Code - Contact: Delvin Pepitojose elias wilsoner, Patient Contacts Name Legal Rel Relationship Phone Active Delvin Raymundo Health Care Agent Brother Yes - Disposition: -- Anticipated discharge to: [facility] -- Anticipated discharge date: t+2 -- Anticipated discharge barriers: Pending placement Extended Emergency Contact Information Primary Emergency Contact: Delvin Raymundo Mobile Relation: Brother Silver Solderer needed? No Patricia Holden MD PGY-1 Dept of Medicine Cosigned by Rabia Velasco MD at 05/28/2025 6:22 PM EDT Associated attestation - Rabia Velasco MD - 05/28/2025 6:22 PM EDT I have seen and examined the patient, reviewed the findings and plan of care as documented by Dr. Holden and agree, except for any additional comments below. Mr. Raymundo: 69M hx Schizoaffective disorder c/b drug-induced parkinsonism, HTN p/w L facial droop with negative stroke workup c/f psychiatric decompensation awaiting psych bed. C/c/b acute hypoxic respiratory failure 2/2 COVID infection (positive on 05/24) now on remdesivir and dexamethasone, likely aspiration pneumonia, and severe mucous plugging. Triggered overnight for hypoxia and altered mental status, CT head negative for acute stroke, wax and waning so suspect delirium from acute illness. CT chest without PE, but showing multifocal pneumonia and severe mucous plugging. Suspect pneumonia is aspiration related as he was having copious mucous secretions, difficult clearance with Parkinsonism and oropharyngeal dysphagia, and also tube feed reflux. KUB demonstrating dilated bowel loops without significant stool burden, possible ileus? Ensure aspiration precautions, sit patient up in bed while giving tube feeds and meds. Agree with adding cefepime, dexamethasone 6 mg qd x10 days, holding tube feeds and allowing for bowel rest. MRSA nares negative. Maximize pulmonary toilet (chest PT, HTS with concurrent nebs, mucomyst, mucinex BID. Pt unable to cooperate w/ acapella). Anticipated discharge date: >3 days, may be delayed for COVID quarantine status Discharge location: [facility] Rabia Velasco MD Section of Hospital Medicine [facility] * Kymberly Mata MD - 2025 3:50 PM EDT [facility] PSYCHIATRIC CONSULTATION FOLLOW-UP NOTE INTERVAL HPI: Per nursing, pt continues to present with paranoid delusions and statements that he is unable to trust staff. He is also telling staff he would try to jump out the window if given the opportunity. A 1:[address] for safety. He continues treatment with standing clozapine 25mg qAM + 150mg qHS, depakote 250mg TID, haloperidol 1mg BID. He received an additional haloperidol 1mg overnight for agitation with limited effect. Requiring b/l soft wrist restraints. He is receiving acetaminophen 1000mg q8h standing for pain managem ent. He continues with congested cough and occasional O2 desaturation to low 80s that recovers in the setting of COVID+. Afebrile, tachycardic and tachypneic. He is tolerating tube feeds. Psychiatry asked to eval worsening insomnia and agitation overnight. Interview today is limited by mental status. The pt is resting and not responding to questions, does not open eyes with prompting. REVIEW OF SYSTEMS: Unable to elicit EXAM: Temp: [98.1 ??F (36.7 ??C)] 98.1 ??F (36.7 ??C) Heart Rate: [110-122] 122 Resp: [22] 22 BP: (151)/(86) 151/86 SpO2: [89 %-99 %] 92 % FiO2 (%): [50 %] 50 % Neurological: Motor: exam limited by restraints; no abnormal movements appreciated; tremor observed in UE on previous exams Cognitive: Wakefulness/alertness: drowsy Orientation: does not respond to orientation questions Attention: Unable to assess Memory: unable to assess Mental Status: Appearance: appears stated age, unkempt, in hospital gown Behavior: eyes closed, non participatory in interview Mood: not stated Affect: calm Speech: no output Thought process: unable to assess Thought content and perceptions: unable to assess Insight and judgment: poor/poor DATA: Lab Results Component Value Date GLUCOSE 238 (H) 2025 CALCIUM 9.4 2025 NA 144 2025 K 3.7 2025 CO2 28 2025 CL 103 2025 BUN 39 (H) 2025 CREATININE 1.00 2025 Lab Results Component Value Date MG 2.4 2025 Lab Results Component Value Date CALCIUM 9.4 2025 PHOS 2.7 2025 Lab Results Component Value Date WBC 13.02 (H) 2025 HGB 12.7 (L) 2025 HCT 39.8 (L) 2025 MCV 96 2025 PLT 343 2025 CXR Worsening left lower lobe opacification highly concerning for pneumonia. Last EKG ECG 12 lead Collection Time: 05/25/25 12:17 PM Result Value Ref Range Ventricular Heart Rate 111 BPM Atrial Heart Rate 111 BPM LA Interval 128 ms QRSD Interval 100 ms QT Interval 374 ms QTC Interval 508 ms P Mathews 50 degrees R Mathews -25 degrees T Wave Mathews 53 degrees Narrative Sinus tachycardia Otherwise normal ECG When compared with ECG of 21-May-2025 12:53, No significant change was found *Note: Due to a large number of results and/or encounters for the requested time period, some results have not been displayed. A complete set of results can be found in Results Review. MEDICATIONS: Current Medications[1] PRN Meds:.PRN Medications[2] ASSESSMENT: Carter Raymundo is a 70 y.o. male with past psych history of schizoaffective disorder on clozapine,past medical history of hypertension, CKD, oropharyngeal dysphagia c/b frequent aspiration now s/p PEG, drug-induced Parkinsonism, who presented from nursing facility with altered mental status with unresponsiveness and aphasia, now medically cleared. Psychiatry initially consulted for assistance with diagnostic clarification, with initial differential ddx of catatonia vs delirium/encephalopathy vs decompensated psychosis. Course c/b diagnosis of COVID with consolidation on CXR concerning for pneumonia. Pt continues to present with paranoia toward staff. He has expressed SI. Overnight, he presented with worsening insomnia and agitation that did not improve with an additional haloperidol 1mg dose. Hehas been adherent to standing medications. On evaluation today, the patient is too sedated to participate in interview. Clinical impression concerning for acute psychosis in the setting of schizoaffective disorder, delirium and/or underlying neurocognitive disorder (not previously diagnosed per records, pt not currently participating in cognitive assessment) contributing to persistent symptoms. DSM-5 DIAGNOSIS: Schizoaffective disorder Delirium R/o unspecified neurocognitive disorder RECOMMENDATIONS: -continue clozapine 25mg qAM + 150mg qHS -change depakote schedule to 250mg qAM + 500mg qHS to optimize sleep -continue trazodone 150mg qHS -continue ramelteon 8mg qHS -continue haloperidol 1mg BID to augment treatment for psychosis; will monitor for worsening EPS -for mild to moderate agitation, offer haloperidol 2mg PRN -continue standing acetaminophen for pain -continue bowel regimen -continue 1:1 observer for safety -psych bed search on hold pending medical clearance; the pt does not have capacity to leave AMA -will plan to f/u with brother, Delvin, for clinical update [1] Current Facility-Administered Medications Medication Dose Route Frequency Provider Last Rate Last Admin acetaminophen (TYLENOL) tablet 1,000 mg 1,000 mg G-tube Q8H [facility] Agustín Vazquez MD 1,000 mg at 05/27/25 1534 atorvaSTATin (LIPITOR) tablet 20 mg 20 mg G-tube QHS Juliet Becerra MD 20 mg at 05/26/252139 benzonatate (TESSALON) capsule 100 mg 100 mg Oral TID Ammon Low MD PhD bisacodyl (DULCOLAX) suppository 10 mg 10 mg Rectal Daily PRN Noe Ruiz MD 10 mg at 05/02/252042 [Held by provider] buPROPion (WELLBUTRIN) tablet 100 mg 100 mg G-tube TID Peña Salas MD 100 mg at 05/10/252031 calcium carbonate (TUMS) chewable tablet 1,000 mg 1,000 mg G-tube TID PRN Karrie Starks MD carbidopa-levodopa (SINEMET) 25-100 mg per tablet 0.5 tablet 0.5 tablet G-tube TID Karrie Starks MD 0.5 tablet at 05/27/25 1534 cefepime (MAXIPIME) 2 g in sodium chloride 0.9% (NS) MBP 2 g Intravenous Once Misael Paul cefepime (MAXIPIME) 2 g in sodium chloride 0.9% (NS) MBP 2 g Intravenous Q12H Misael Paul cloZAPine (CLOZARIL) tablet 150 mg 150 mg G-tube QHS Karrie Starks MD 150 mg at 08/05/25 2140 cloZAPine (CLOZARIL) tablet 25 mg 25 mg G-tube Daily Karrie Starks MD 25 mg at 05/27/25 0944 dextrose (TRUEPLUS) 40% oral gel 15 g 15 g Oral Q15 Min PRN Ammon Low MD PhD Or dextrose 50% (D50W) injection 12.5 g 12.5 g Intravenous PRN Ammon Low MD PhD Or dextrose 50% (D50W) injection 25 g 25 g Intravenous PRN Ammon Low MD PhD Or glucagon injection 1 mg 1 mg Intramuscular PRN Ammon Low MD PhD [START ON 05/28/2025] divalproex (DEPAKOTE SPRINKLE) capsule 250 mg 250 mg Oral QAM Ammon Low MD PhD And divalproex (DEPAKOTE SPRINKLE) capsule 500 mg 500 mg Oral QPM Ammon Low MD PhD enoxaparin (LOVENOX) injection 40 mg 40 mg Subcutaneous Q24H [facility] Juliet Becerra MD 40 mg at 081712 famotidine (PEPCID) tablet 20 mg 20 mg G-tube BID Juliet Becerra MD 20 mg at 05/27/25 0943 gabapentin (NEURONTIN) capsule 100 mg 100 mg G-tube QAM Karrie Starks MD 100 mg at 05/27/25 0943 gabapentin (NEURONTIN) capsule 300 mg 300 mg G-tube QHS Juliet Becerra MD 300 mg at 05/26/25 2140 guaiFENesin ER (MUCINEX) 12 hr tablet 600 mg 600 mg Oral BID Ammon Low MD PhD 600 mg at 05/27/25 1259 haloperidoL (HALDOL) tablet 1 mg 1 mg G-tube BID Agustín Vazquez MD 1 mg at 05/27/25 0944 haloperidol lactate (HALDOL) injection 2 mg 2 mg Intramuscular Once Karrie Starks MD insulin regular (HumuLIN R, NovoLIN R) 100 unit/mL injection 0-12 Units 0-12 Units Subcutaneous Q6HSCH Ammon Low MD PhD iohexoL (OMNIPAQUE) 240 mg iodine/mL solution 20 mL 20 mL Intravenous Once in imaging Karrie Starks MD ipratropium-albuteroL (DUONEB) 0.5-2.5 mg/3 mL nebulizer solution 3 mL 3 mL Nebulization Q6H [facility] Ammon Low MD PhD 3 mL at 05/27/25 1259 lactulose (ENULOSE) 10 gram/15 mL solution 20 g 20 g G-tube TID Karrie Starks MD 20 g at 534 lidocaine 4 % patch 1 patch 1 patch Topical Q24H Karrie Starks MD 1 patch at 05/24/25 1257 lidocaine 4 % patch 1 patch 1 patch Topical Q24H Karrie Starks MD 1 patch at 05/24/25 1304 magnesium citrate solution 74 mL 74 mL G-tube Daily Agustín Vazquez MD 74 mL at 05/27/25 0943 multivitamin with minerals oral liquid 15 mL 15 mL G-tube Daily Karrie Starks MD 15 mL at 05/27/25 0944 peripheral line: sodium chloride (NS) 0.9% flush 3 mL Intravenous Q12H [facility] Peña Salas MD 3 mLat 05/26/25 2140 And peripheral line: sodium chloride 0.9 % (NS) flush 3 mL Intravenous Q1 Min PRN Peña Salas MD polyethylene glycol (MIRALAX) packet 17 g 17 g G-tube BID Karrie Starks MD 17 g at 05/27/25 0943 ramelteon (ROZEREM) tablet 8 mg 8 mg G-tube QHS Karrie Starks MD 8 mg at 05/26/25 214 remdesivir (VEKLURY) 100 mg in sodium chloride 0.9% (NS) 100 mL Mini-Bag Plus (disp comp) 100 mg Intravenous Q24H Karrie Starks MD 100 mg at 05/27/25 1534 sennosides oral syrup 17.6 mg 17.6 mg G-tube BID Juliet Becerra MD 17.6 mg at 05/27/25 0943 tamsulosin (FLOMAX) 24 hr capsule 0.4 mg 0.4 mg G-tube QHS Juliet Becerra MD 0.4 mg at 05/24/25 2200 traZODone (DESYREL) tablet 150 mg 150 mg G-tube Nightly Juliet Becerra MD 150 mg at 05/26/25 2141 vancomycin (VANCOCIN) 1 gram/200 mL in dextrose 5% (D5W) IVPB premix 1,000 mg 200 mL 1,000 mg Intravenous Q12H Ammon Low MD PhD vancomycin per pharmacy protocol 1 each 1 each Miscellaneous See Admin Instructions Ammon Low MD PhD [2] bisacodyl calcium carbonate dextrose oral gel OR dextrose 50% OR dextrose 50% OR glucagon (human recombinant) iohexoL Insert and Maintain Peripheral IV AND sodium chloride AND sodium chloride * Steven Pierre PharmD - 2025 3:48 PM EDT Pharmacy To Dose Vancomycin - Initiation Carter Raymundo is a 70 y.o. male starting vancomycin for HAP Objective Information: Vitals BP: (!) 151/86 Temp: 98.1 ??F (36.7 ??C) Temp Source: Oral Heart Rate: (!) 122 Resp: (!) 22 SpO2: 99 % Height: 180.3 cm (5' 11 ) Actual Weight: 75.8 kg (167 lb 1.7 oz) Renal Function: Today's Scr: 1.00 mg/dL Lab Results Component Value Date CREATININE 1.00 2025 CREATININE 0.90 05/26/2025 CREATININE 1.10 05/25/2025 CREATININE 1.10 05/24/2025 CREATININE 1.00 05/14/2025 Estimated Creatinine Clearance: 75.3 mL/min (by C-G formula based on SCr of 1 mg/dL). Intake/Output: I/O last 2 completed shifts: In: - Out: 600 [Urine:600] ID/Micro Results: Results from last 7 days Lab Units 05/27/25 0634 05/26/25 0716 05/25/25 1228 05/24/25 0628 05/22/25 0701 WBC K/uL 13.02* 10.78* 13.75* 11.29* 12.19* No results found for the last 90 days. Assessment/Plan: This patient has the following risk factor(s) for supratherapeutic vancomycin levels: age >65 years -Will initiate vancomycin 1000 mg IV q 12 hours -Predicted trough: 13.6 mcg/mL -Predicted AUC: 461 mcg*hr/mL (goal 400-600) Pharmacist will continue to monitor renal function, clinical status and order a level as clinicallynecessary If MRSA PCR is negative and vancomycin discontinued or a change in therapy is made to an alternative agent, the pharmacist will sign off automatically. Otherwise, a pharmacist will continue to monitor vancomycin therapy. Please contact for further questions. Steven Pierre PharmD * Ashley - 2025 10:16 AM EDT Nutrition Brief Follow-Up Note: Current tube Feed Order: Jevity 1.5 @ 85 mL/hr x16 hrs (run from 6pm to 10am) (2040 kcal, 87 g protein, 1034 mL free water). With 150 mL flushes q4h (+900 mL). Total 1934 mL free water/day. Provides: 293g CHO/cycle. Access Type: PEG, PIV x1. Estimated Nutrition Needs: Calories: 5259-8938 kcal (25-30 kcal/kg) Protein: 85-106 g (1.2-1.5 g/kg) Fluids: 7246-2213 mL (25-30 mL/kg) Estimated Needs Calculated Usin.9 kg (156 lb 4.9 oz) (weight at rehab) Nutrition following for tube feed management, see RD note from 05/25/25 for most recent full assessment. Patient switched to standard Jevity tube feed formula on 05/13/25 & has been tolerating well from a GI standpoint thus far. Labs previously only able to be intermittently checked due to patient refusal/agitation, though now being checked consistently showing elevated serum BG levels >200 mg/dL. Given persistent elevated BG, recommend checking POC glucose fingersticks q6h (if able) & adding sliding scale insulin to cover intermittent hyperglycemia. Would also recommend switch to carbohydrate- controlled formula as below in efforts to improve BG readings. Nutrition will continue to follow. Interventions/Recommendations: Carbohydrate-Controlled tube feed regimen: Glucerna 1.5 @ 50 mL/hr x24 hrs (provides: 1800 kcals, 99g protein, & 911 mL free water). Provides ~160g CHO/day. Start at 20 mL & advance by 20 mL q4h until at goal of 50 mL/hr. +150 mL free water flushes q4h (+900 mL). Total free water: 1811 mL total H2o/day. Once tolerating continuous, cycle PRN: Glucerna 1.5 @ 75 mL/hr x16 hrs (run from 6pm to 10am) (provides: 1800 kcals, 99g protein, & 911 mL free water). Check POC glucose q6h (if able). Adding sliding scale insulin PRN for hyperglycemia. Nutrition to follow, [id number] for any nutrition questions/concerns/interventions. * Patricia Holden MD - 2025 7:36 AM EDT [facility] Department of Medicine [facility] Medicine Progress Note Patient: Carter Raymundo Admission Date: 04/15/2025 Length of Stay: 41 PCP: Kilo Huynh Attending: Rabia Velasco MD Chief Complaint: Altered mental status OVERNIGHT EVENTS Agitated, needed an additional dose of PO haldol which did not have much effect. SUBJECTIVE No BM for last shift. This morning he desatted to 88% while on room air and was placed on 1L NC. Hewas sleeping and no history was able to be obtained. Nursing attempting to suction to remove excessmucus, but patient not allowing repeat attempts. Update This afternoon, he was placed on the face tent as he was mouth breathing with some improvement. Improvement after suctioning where sizable amount of green sputum was produced with improvement in respiratory status. Later on NC he desatted again to the 80s and was placed back on the face tent. PM CXR concerning for pneumonia. Initially planned for CTA to eval for PE, more likely SOB 2/2 to infection. Plan to start cefepime/vanco pending approval. OBJECTIVE DATA VITALS T 98.1 ??F (36.7 ??C) HR (!) 122 BP (!) 151/86 RR (!) 22 SpO2 97 % 4 L/min O2 Device: None (Room air) 75.8 kg (167 lb 1.7 oz) Body mass index is 23.31 kg/m??. PHYSICAL EXAM GENERAL: NAD, resting in bed, sleeping HEENT: No scleral icterus, moist mucous membranes. CARDIAC: Clinically well perfused. Tachycardic. LUNG: Appears in no acute respiratory distress, but with some gasping occasionally. Noted to have some upper airway mucus with intermittent coughing. ABD: No abdominal abnormalities on inspection. MSK: No focal joint swelling or deformities. No lower extremity tremors or abnormal movements notedon exam, but patient refused lower extremity examination. NEURO: asleep SKIN: No significant rashes, sores or wounds noted on exposed skin. PSYCH: overnight was agitated LABS, MICROBIOLOGY and STUDIES reviewed in [facility]. ASSESSMENT & PLAN Carter Raymundo is a 69 y.o. male with a relevant past medical history of HTN, CKD, schizoaffectivedisorder, and drug-induced parkinsonism, who initially presented with unresponsiveness, asphaia, and possible left facial droop concerning for stroke versus TME, but with unremarkable workup. Admitted to medicine for monitoring and re-initiation of clozapine dosing, now medically stable pending inpatient psych placement for decompensated schizoaffective disorder. ACTIVE ISSUES # Brief episode of unresponsiveness # Schizoaffective disorder # Acute delirium Patient initially presenting with acute onset of unresponsiveness, aphasia, and concern for ?facialasymmetry. CTH w/o stroke. MRIb normal. Workup for toxic metabolic encephalopathy negative. Multiple EEGs with no evidence of seizures. During admission, has had multiple triggers called for unresponsiveness (not true catatonia per psych) with no clear trigger. Labs from triggers thus far have all been unremarkable. His ongoing presentation is likely secondary to acute delirium superimposed on known decompensated schizoaffective disorder that is persistent even with careful titration of his psychiatric medications. Cx - Per Neuro, no clear neurologic explanation for episodes of unresponsiveness - Psych following, appreciate recs Dx - QTC mildly prolonged, EKG w QTC 508 Tx - Holding home buproprion 100mg TID for now per Psychiatry - Psych adjusting clozapine dosinmg qAM + 125mg qHS per Psychiatry. - Continue depakote 250 mg TID per Psychiatry - consider adjusting depakote to 250 qam and 500 at night to help with sleep. - Continue standing haloperidol 1 mg BID to augment treatment for psychosis - Continue with lowered Sinemet dose in case is contributing to agitation and paranoia per patient's outpatient neurologist, Marilyn Raygoza MD. > If the team would like to consider downtitrating Sinemet, Dr. Raygoza recommends reducing dose to 1 tab TID for 1 week, then half tab TID for the week following. - C/h trazodone 150mg qHs - Agitation: haloperidol 2 mg IM PRN. D/c'ed Ativan in case that is worsening delirium - Ramelteon 8 mg at bedtime - Per psych meets section 12 criteria, cannot leave AMA. HCP has been affirmed - Patient is medically clear for psych bed placement, will encourage to work with PT and get out ofbed as able - Plan for weekly interdisciplinary meetings on Sunday 2pm # COVID + # Sepsis # Acute hypoxic respiratory failure # LLL Consolidation c/f pneumonia # Not anticoagulated RVP sent 05/24 for increased tachycardia and transient hypoxemia. COVID positive. CXR with new LLL consolidation (prior XR 2 days prior). Started Remdesivir 05/24 with white count stable. He has been refusing the Lovenox for several weeks and now having intermittent O2 demand and tachycardic (usually low 100's, now up to 120's intermittently). - Starting remdesivir for COVID (medication interactions w/ Paxlovid) - At this time, suspect lung consolidation is related to COVID rather than new PNA, especially given pt does not have an increased WBC. Will treat COVID for now and consider additional HAP coverage if he does not improve. - scheduled guaifenesin. - Transition to daily CBC to monitor WBC iso possible PNA - Consideration of CTA chest to evaluate for PE. - Consider dexamethasone if no PE - CXR in the pm demonstrated worsening LLL consolidation concerning for pneumonia, plan to start vanco/cefepime. #Constipation Severe stool burden on KUB while on clozapine. Requires an intense bowel regimen in order to keep him regular. - Bowel reg: scheduled Miralax, senna BID, lactulose - Mag citrate 05/19, 05/20 - Large BM 05/21 and 8/3pm, 05/26 # Dysphagia with G tube reliance Patient with history of oropharyngeal dysphagia. Pulled out G tube 04/19 AM and again 05/11 overnight. - G tube replaced with IR 05/12, overnight tube feeds. # Transient hypoxia # C/f aspiration pneumonitis Patient with history of oropharyngeal dysphagia with G tube in place. Brief episode of hypoxia on admission that resolved quickly, possible 2/2 aspiration. At the [facility], he is on a pureed diet. High risk for aspiration. 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 EKG's to date all consistent with sinus tachycardia. - CTM CHRONIC / STABLE ISSUES # Drug-induced Parkinsonism - Continuing reduced dose Sinemet as above; d/c on 05/28 # CAD # HTN - C/h statin # CKD - Trending Cr, currently at baseline # BPH - C/h tamsulosin # GERD - C/h pepcid CORE MEASURES - FEN: IVF PRN, replenish electrolytes, Diet Modified Texture; Pureed; Thin Liquids; Deliver To Nursing, Finger Foods/No Utensils, No Sharps, Safety Tray - PAML complete - Functional Status: Independent without use of assistive devices for ambulation - DVT prophylaxis: SC low molecular weight heparin (refusing) - Access: None - Code: Full Code - Contact: brother Lr, Patient Contacts Name Legal Rel Relationship Phone Active Delvin Raymundo Brothmarisa - Disposition: -- Anticipated discharge to: [facility] -- Anticipated discharge date: t+2 -- Anticipated discharge barriers: Pending placement Extended Emergency Contact Information Primary Emergency Contact: Delvin Raymundo Mobile Relation: Brother Silver Solderer needed? No Patricia Holden MD PGY-1 Dept of Medicine Cosigned by Rabia Velasco MD at 2025 5:17 PM EDT Associated attestation - Rabia Velasco MD - 2025 5:17 PM EDT I have seen and examined the patient, reviewed the findings and plan of care as documented by Dr. Holden and agree, except for any additional comments below. Mr. Raymundo: 69M hx Schizoaffective disorder c/b drug-induced parkinsonism, HTN p/w L facial droop with negative stroke workup c/f psychiatric decompensation awaiting psych bed. C/c/b COVID infection (positive on 05/24) now on remdesivir. Hypoxic up to 1L NC overnight, worsening cough w/ secretions and worsening LLL opacities. Agree with aggressive mucous clearance (chest PT, guaifenesin, HTS/nebs as tolerated), and starting broad spectrum abx for bacterial PNA. MRSA pending. Anticipated discharge date: >3 days, may be delayed for COVID quarantine status Discharge location: pending [facility]psych bed placement Rabia Velasco MD Section of Hospital Medicine [facility] * Patricia Holden MD - 05/26/2025 8:05 AM EDT Images from the original note were not included. [facility] Department of Medicine [facility] Medicine Progress Note Patient: Carter Raymundo Admission Date: 04/15/2025 Length of Stay: 40 PCP: Kilo Huynh Attending: Rabia Velasco MD Chief Complaint: Altered mental status OVERNIGHT EVENTS Didn't get tube feeds. Room air overnight SUBJECTIVE Carter is doing okay this morning. Needed to be placed back into restraints. Was able to get the remdesivir yesterday (D2). He has increasing paranoia this morning. Nursing noted that he has had a few episodes of coughing with gasping but without corresponding dsats.He declined a physical exam thisam. He is currently on room air, but had removed his pulse ox. Spoke to his brother and HCP Delvin today who mentions that Carter has been fairly noninteractive and not returning phone calls from him or friends. Apparently he is usually very social at baseline. Delvin is wondering how he is doing from a psych perspective and how long it generally takes for the clozapine to show effect. He also mentions that Carter lives at an assisted living that cost $6000 a month and given that he is planning on discharging to a psych facility, that it might make the most sense to cancel his residency at this facility. OBJECTIVE DATA VITALS T 98.7 ??F (37.1 ??C) HR (!) 109 BP 110/71 RR 18 SpO2 98 % 4 L/min O2 Device: None (Room air) 75.8 kg (167 lb 1.7 oz) Body mass index is 23.31 kg/m??. PHYSICAL EXAM GENERAL: NAD, resting in bed, calm but expressing paranoia HEENT: No scleral icterus, moist mucous membranes. CARDIAC: Clinically well perfused. Tachycardic. LUNG: Appears in no respiratory distress. No accessory muscle use. Lung anterior lungs fairly clearwith good air movement, unable to examine the back due to patient compliance. ABD: No abdominal abnormalities on inspection. MSK: No focal joint swelling or deformities. No lower extremity tremors or abnormal movements notedon exam, but patient refused lower extremity examination. NEURO: alert, following commands. SKIN: No significant rashes, sores or wounds noted on exposed skin. PSYCH: paranoid but fairly calm. LABS, MICROBIOLOGY and STUDIES reviewed in Epic. ASSESSMENT & PLAN Carter Raymundo is a 69 y.o. male with a relevant past medical history of HTN, CKD, schizoaffectivedisorder, and drug-induced parkinsonism, who initially presented with unresponsiveness, asphaia, and possible left facial droop concerning for stroke versus TME, but with unremarkable workup. Admitted to medicine for monitoring and re-initiation of clozapine dosing, now medically stable pending inpatient psych placement for decompensated schizoaffective disorder. ACTIVE ISSUES # Brief episode of unresponsiveness # Schizoaffective disorder # Acute delirium Patient initially presenting with acute onset of unresponsiveness, aphasia, and concern for ?facialasymmetry. CTH w/o stroke. MRIb normal. Workup for toxic metabolic encephalopathy negative. Multiple EEGs with no evidence of seizures. During admission, has had multiple triggers called for unresponsiveness (not true catatonia per psych) with no clear trigger. Labs from triggers thus far have all been unremarkable. His ongoing presentation is likely secondary to acute delirium superimposed on known decompensated schizoaffective disorder that is persistent even with careful titration of his psychiatric medications. Cx - Per Neuro, no clear neurologic explanation for episodes of unresponsiveness - Psych following, appreciate recs Dx - LFT daily starting 05/25 in event of needed psych med uptitration - QTC mildly prolonged, EKG w QTC 508 yesterday Tx - Holding home buproprion 100mg TID for now per Psychiatry - Psych adjusting clozapine dosinmg qAM + 125mg qHS per Psychiatry. - Continue depakote 250 mg TID per Psychiatry - Continue standing haloperidol 1 mg BID to augment treatment for psychosis - Continue with lowered Sinemet dose in case is contributing to agitation and paranoia per patient's outpatient neurologist, Marilyn Raygoza MD - C/h trazodone 150mg qHs - Agitation: haloperidol 2 mg IM PRN. D/c'ed Ativan in case that is worsening delirium - Ramelteon 8 mg at bedtime - Per psych meets section 12 criteria, cannot leave AMA. HCP has been affirmed - Patient is medically clear for psych bed placement, will encourage to work with PT and get out ofbed as able - Plan for weekly interdisciplinary meetings on Sunday 2pm #COVID + #LLL Consolidation RVP sent 05/24 for increased tachycardia and transient hypoxemia. COVID positive. CXR with new LLL consolidation (prior XR 2 days prior). Started Remdesivir 05/24. - Starting remdesivir for COVID (medication interactions w/ Paxlovid) - At this time, suspect lung consolidation is related to COVID rather than new PNA, especially given pt does not have an increased WBC. Will treat COVID for now and consider additional HAP coverage if he does not improve. - Transition to daily CBC to monitor WBC iso possible pna #Constipation Severe stool burden on KUB while on clozapine. Requires an intense bowel regimen in order to keep him regular. - Bowel reg: scheduled Miralax, senna BID, lactulose - Mag citrate 05/19, 05/20 - Large BM 05/21 and 8/3pm, 8/ # Dysphagia with G tube reliance Patient with history of oropharyngeal dysphagia. Pulled out G tube 04/19 AM and again 05/11 overnight. - G tube replaced with IR 05/12, overnight tube feeds. # Transient hypoxia # C/f aspiration pneumonitis Patient with history of oropharyngeal dysphagia with G tube in place. Brief episode of hypoxia on admission that resolved quickly, possible 2/2 aspiration. At the [facility], he is on a pureed diet. High risk for aspiration. 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 EKG's to date all consistent with sinus tachycardia. - CTM CHRONIC / STABLE ISSUES # Drug-induced Parkinsonism - Continuing reduced dose Sinemet as above # CAD # HTN - C/h statin # CKD - Trending Cr, currently at baseline # BPH - C/h tamsulosin # GERD - C/h pepcid CORE MEASURES - FEN: IVF PRN, replenish electrolytes, Diet Modified Texture; Pureed; Thin Liquids; Deliver To Nursing, Finger Foods/No Utensils, No Sharps, Safety Tray - PAML complete - Functional Status: Independent without use of assistive devices for ambulation - DVT prophylaxis: SC low molecular weight heparin - Access: None - Code: Full Code - Contact: brother Lr, Patient Contacts Name Legal Rel Relationship Phone Active Delvin Raymundo Brother - Disposition: -- Anticipated discharge to: [facility] -- Anticipated discharge date: t+2 -- Anticipated discharge barriers: Pending placement Extended Emergency Contact Information Primary Emergency Contact: Delvin Raymundo Mobile Relation: Brother Silver Solderer needed? No Patricia Holden MD Dept of Medicine Cosigned by Rabia Velasco MD at 05/26/2025 2:55 PM EDT Associated attestation - Rabia Velasco MD - 05/26/2025 2:55 PM EDT I have seen and examined the patient, reviewed the findings and plan of care as documented by Dr. Holden and agree, except for any additional comments below. Mr. Raymundo: 69M hx Schizoaffective disorder c/b drug-induced parkinsonism, HTN p/w L facial droop with negative stroke workup c/f psychiatric decompensation awaiting psych bed. C/c/b COVID infection (positive on 05/24) now on remdesivir. Respiratory status improving, down to room air this morning. Anticipated discharge date: >3 days, may be delayed for COVID quarantine status Discharge location: pending [facility] bed placement Rabia Velasco MD Section of Hospital Medicine [facility] * Kimani Rivas MD - 05/25/2025 9:32 AM EDT Images from the original note were not included. [facility] PSYCHIATRIC CONSULTATION FOLLOW-UP NOTE INTERVAL HPI: - NAEON - Patient COVID+, new LLL consolidation, started on remdesivir Patient reports that TW is getting satisfaction from him being here. He states he is very angry andhe gets angrier the longer he talks but is unable to elaborate on why. He reports that TW is mentally ill. He expresses understanding that he cannot move his care forward if he does not engage in interview. He begins spitting at TW when approaching bedside and the interview is concluded for safety. REVIEW OF SYSTEMS: As per HPI EXAM: 05/25/2025 8:00 AM Vital Signs Temperature 98.2 ??F (36.8 ??C) Heart Rate 121 Respiration 18 SpO2 88 % Blood Pressure 134/73 Neurological: Motor: no abnormal movements or motor symptoms appreciated on physical exam including tremor, spasm, rigidity; spontaneous movements of all extremities b/l Cognitive: Wakefulness/alertness: awake and alert Orientation: unable to assess Attention: Unable to assess Memory: unable to assess Mental Status: Appearance: appears stated age, unkempt, in hospital gown Behavior: intermittent eye contact, guarded, uncooperative Mood: angry Affect: irritable, constricted, stable Speech: minimal; normal rate/tone/volume Thought process: grossly disorganized Thought content and perceptions: general paranoia regarding staff, unable to assess SI/HI/AVH Insight and judgment: poor/poor MEDICATIONS: Scheduled Meds:Scheduled Medications[1] Continuous Infusions:Infusions Meds[2] PRN Meds:.PRN Medications[3] DATA: Reviewed. ASSESSMENT: Carter Raymundo is a 69 y.o. male with past psych history of schizoaffective disorder on clozapine,past medical history of hypertension, CKD, oropharyngeal dysphagia c/b frequent aspiration now s/p PEG, drug-induced Parkinsonism, who presented from nursing facility with altered mental status with unresponsiveness and aphasia, now medically cleared. Psychiatry initially consulted for assistance with diagnostic clarification, with initial differential ddx of catatonia vs delirium/encephalopathy vs decompensated psychosis. On evaluation today, patient presentation significant for ongoing irritability and paranoia. He expresses frustration and has certain adversarial thoughts towards some providers. Overall though, there has been modest improvement in agitation over the past week and he has been adherent to his medication regimen. Appreciate repeat medical work up as his hospital stay is prolonged to rule out potential contributions to delirium. Newly diagnosed COVID infection likely contributing to worsening mental status and mood. Have remained unable to formally reassess cognition and mental status due to limited patient participation and agitation; psychotic symptoms including paranoia, delusions, and disorganized behaviors are apparent per observation and staff reports. Scheduled depakote to help managepatient irritability, intermittent agitation (historical med). Scheduling Haldol as well as having Haldol PRN while monitoring Qtc (stable) and potential to worsen EPS while more acutely agitated/psychotic. Given worsening agitation has been distressing for both the patient and staff, it is reasonable to accept present risk to address this concern. Given cognition at this time is unclear, will attempt to limit polypharmacy and avoid Ativan due to concerns for worsening potential delirium. No changes in management from psych perspective today; would continue to treat underlying cause contributing to delirium as you are doing for now. Will continue to optimize psychiatric medication list as he recovers from acute medical illness. Patient presentation currently consistent with acute psychosis in the setting of schizoaffective disorder, delirium and/or underlying neurocognitive disorder (not previously diagnosed per records). Catatonia was deemed unlikely given isolated symptom of mutism, intermittent stupor without muscle rigidity/waxy flexibility, and also the limited effect of benzodiazepines on clinical course. No structural intracranial abnormalities on imaging. Multiple EEGs demonstrate no seizure, findings more consistent with delirium but non-specific. Regarding psychiatric symptoms, he is paranoid, endorses delusions, has endorsed SI, made verbal threats to staff, does not have known AVH. Holding bupropion, lowering Sinemet dose as able to facilitate decrease in agitation which appears primarily related to psychosis at this time. Currently on previous home clozapine dose. Brother reports at baseline patient is relatively high-functioning, pleasant, not overtly paranoid. At this point, no concern for acute medical illness, and behavior seems primarily related to underlying schizoaffective disorder. Primary medical team has cleared patient for inpatient psychiatric bed placement. Repeat labs unremarkable, repeat CXR negative for acute findings (05/22). Weekly interdisciplinary meeting held 05/22 to discuss patient's recent behavior and dispo barriers. Addressing agitation and psychosis with scheduled clozapine, depakote, Haldol. For dispo, patient will need to demonstrate improvement in mobility (first actionable goal out of bed to chair), cooperation with care. HCP affirmed on 05/20 for substitute decision making. Patient on section 12 due to inability to care for self and acute risk of psychiatric decompensation, bed search in progress. DSM-5 DIAGNOSIS: Schizoaffective disorder R/o delirium R/o unspecified neurocognitive disorder RECOMMENDATIONS: #LEGAL Patient remains on section 12, cannot leave AMA, bed search in progress Continue 1:1 sitter #MANAGEMENT Note last Qtc: Qtc: 508 on 05/25 - Uri; consider repeat EKG q2-3 days as able for monitoring of QTc Continue delirium precautions --> Emphasize strong diurnal cues including windows open during day, limit disruptions overnight, practice avoidance of deliriogenic drugs as possible, mobilize throughout the day as possible, optimize nutrition, ensure normal regular bowel movements, and treat pain to the extent possible Clozapine dosing: c/w 25mg qAM+150mg qHS C/w depakote 250mg PO TID Depakote level: 33 Please continue efforts to ensure bowel movement while on clozapine with consistent documentation bowel movements (Last BM today 05/21) C/w gabapentin dose to 100 mg qAM+300mg QHS Continue to hold Wellbutrin 100 mg TID Continue ramelteon 8 mg QHS Continue trazodone 150 mg QHS Continue standing Haldol 1mg PO BID Consider standing acetaminophen for pain Please d/c lorazepam to reduce risk of worsening delirium For mild/moderate agitation, offer haloperidol 1mg PO BID PRN May give Haldol 2 mg IM for refractory acute agitation, monitoring closely for EPS; may repeat samedose if no response in 30 mins; would re-engage psychiatry if requiring multiple doses Psychiatry will continue to follow Kimani Rivas MD PGY2, Department of Psychiatry Psychiatry Consultation-Liaison Service Case discussed with attending psychiatrist Dr. Kymberly Mata. Please page [phone] overnight for any questions or concerns regarding acute psychiatric emergencies. [1] acetaminophen, 1,000 mg, G-tube, Q8H CLAUDIA atorvaSTATin, 20 mg, G-tube, QHS [Held by provider] buPROPion, 100 mg, G-tube, TID carbidopa-levodopa, 0.5 tablet, G-tube, TID cloZAPine, 150 mg, G-tube, QHS cloZAPine, 25 mg, G-tube, Daily divalproex, 250 mg, Oral, TID enoxaparin, 40 mg, Subcutaneous, Q24H CLAUDIA famotidine, 20 mg, G-tube, BID gabapentin, 100 mg, G-tube, QAM gabapentin, 300 mg, G-tube, QHS haloperidoL, 1 mg, G-tube, BID haloperidol lactate, 2 mg, Intramuscular, Once lactulose, 20 g, G-tube, TID lidocaine, 1 patch, Topical, Q24H lidocaine, 1 patch, Topical, Q24H magnesium citrate, 74 mL, G-tube, Daily multivitamin with minerals, 15 mL, G-tube, Daily sodium chloride, 3 mL, Intravenous, Q12H CLAUDIA polyethylene glycol, 17 g, G-tube, BID ramelteon, 8 mg, G-tube, QHS remdesivir, 100 mg, Intravenous, Q24H sennosides, 17.6 mg, G-tube, BID tamsulosin, 0.4 mg, G-tube, QHS traZODone, 150 mg, G-tube, Nightly [2] [3] bisacodyl calcium carbonate guaiFENesin iohexoL Insert and Maintain Peripheral IV AND sodium chloride AND sodium chloride Cosigned by Kymberly Mata MD at 05/25/2025 11:16 PM EDT Associated attestation - Kymberly Mata MD - 05/25/2025 11:16 PM EDT I was present with the resident during the evans portions of the service. I discussed the case with the resident and agree with the findings and plan as documented in the resident's note with the following addendum: Pt participated in brief interview with me this afternoon. He is accepting of respiratory therapy. Calm and endorses not feeling well. He stated that he prefers to rest. Although he was more agitatedearlier in the day, he is overall participating in care. Given new acute infection, recommend deferring any changes to psychiatric regimen today. * Nicole Ramirez - 05/25/2025 8:57 AM EDT NUTRITION FOLLOW UP NOTE OBJECTIVE: Height: 71 in Admit weight: 75.8 kg (bed, 04/17) Current weight: No updated weights Pertinent Meds: famotidine, lactulose TID, 74mL Mg citrate, liquid multivitamin w/ minerals, polyethylene glycol, senna. Others noted. Recent Labs 05/25/25 0732 NA 144 K 3.9 CL 104 CO2 29 BUN 31* CREATININE 1.10 GLUCOSE 200* CALCIUM 8.7 MG 2.5 PHOS 2.8 Corrected Calcium: 9.5 Calculated using: - Calcium: 8.7 (05/25/2025) - Albumin: 3 (05/25/2025) Recent Labs 05/24/25 0627 ALT 8 AST 22 ALKPHOS 147* BILITOT 0.5 Food Allergies: NKFA Diet Order: Pureed diet, thin liquids Tube Feed Order: Jevity 1.5 @ 85 mL/hr x16 hrs (run from 6pm to 10am) (2040 kcal, 87 g protein, 1034 mL free water). With 150 mL flushes q4h (+900 mL). Total 1934 mL free water/day. Access Type: PEG, PIV x1. GI/Abdomen: Abdomen soft, non-tender, non-distended per flowsheets. LBM x1 05/25/25. Skin: Dermatitis to sacrum, no pressure injuries noted. Drains: None. Extremities: No LE edema noted. Nutrition Focused Physical Exam: Deferred. ASSESSMENT: Estimated Nutrition Needs: Calories: 2840-5395 kcal (25-30 kcal/kg) Protein: 85-106 g (1.2-1.5 g/kg) Fluids: 8802-9236 mL (25-30 mL/kg) Estimated Needs Calculated Usin.9 kg (156 lb 4.9 oz) (weight at rehab) Specifics: 69M w/ PMHx significant for HTN, CKD, schizoaffective disorder, and drug-induced parkinsonism. Presented to [facility] on 04/15/25 w/ unresponsiveness, asphaia, & possible left facial droop concerning for stroke versus TME. Admitted to medicine for monitoring and re-initiation of clozapine dosing, now medically stable pending inpatient psych placement for decompensated schizoaffective disorder. S/pG-tube replacement (04/20/25 & 05/11/25). Now w/ new COVID infection. Nutrition following for tube feed management. Continues on cyclic tube feeds as ordered, PO intake varies depending on the day pending agitation, though continues to not meet nutrition needs w/ POs alone. Current tube feeds remains appropriate & patient tolerating well from a GI standpoint. Continue current tube feeds as ordered, can cycle further PRN -- recs below. No updated weights this admission, obtain new weight as appropriate/able. Lytes today currently WNL. Serum BG x2 days elevated~150-200 mg/dL, recommend checking FSBG q6h sliding scale if able (patient regularly refuses various interventions), will continue to monitor. Nutrition to follow. Interventions / Recommendations: Continue current diet as ordered, encourage PO intake as tolerated. Continue cyclic tube feeds: Jevity 1.5 @ 85 mL/hr x16 hrs (run from 6pm to 10am) (2040 kcal, 87 g protein, 1034 mL free water). With 150 mL flushes q4h (+900 mL). Total 1934 mL free water/day. PRN 14-hr recs: Jevity 1.5 @ 95 mL/hr x14 hrs (run from 6pm to 8am) (provides: 1995 kcals, 85g protein, & 1011 mL free water). Monitor lytes, address PRN. Monitor serum BG daily, suggest checking POC glucose q6h (if able). Continue multivitamin w/ minerals as ordered. Monitor I's/O's, GI function, & BMs daily. Bowel regimen per team. Obtain new weight as able. Nutrition to continue to follow, please message or page [phone] with any questions/concerns Signed by: Nicole Ramirez, MS, RD, LDN 05/25/25 8:58 AM * Patricia Holden MD - 05/25/2025 7:54 AM EDT Images from the original note were not included. [facility] Department of Medicine [facility] Medicine Progress Note Patient: Carter Raymundo Admission Date: 04/15/2025 Length of Stay: 39 PCP: Kilo Huynh Attending: Rabia Velasco MD Chief Complaint: Altered mental status OVERNIGHT EVENTS 1 BM last night New tremors - Pt w visible tremors in his BUE. When asked if the tremors were from pain, being cold, or his baseline, pt stated that he was not able to say SUBJECTIVE Carter is doing okay this morning. He was fairly interactive when I went to examine him, but statedthat he had a lot of pain with the inability to describe where it was located. Per nursing this morning, when they went to see him he was very agitated, tried to kick her, and was yelling. He does have a peripheral IV in place, which has been wrapped to prevent him from pulling it out. Per nursing he had a new O2 requirement of 2 L nasal cannula for an O2 sat of 88%, but is otherwisecomfortable. OBJECTIVE DATA VITALS T 98 ??F (36.7 ??C) HR (!) 108 BP (!) 150/81 RR 13 SpO2 (!) 91 % O2 Device: None (Room air) 75.8 kg (167 lb 1.7 oz) Body mass index is 23.31 kg/m??. PHYSICAL EXAM GENERAL: NAD, resting in bed, appears calm. HEENT: No scleral icterus, moist mucous membranes. CARDIAC: Clinically well perfused. Tachycardic. LUNG: Appears in no respiratory distress. No accessory muscle use. Lung anterior lungs fairly clearwith good air movement, unable to examine the back due to patient compliance. ABD: No abdominal abnormalities on inspection. MSK: No focal joint swelling or deformities. No lower extremity tremors or abnormal movements notedon exam, but patient refused lower extremity examination. NEURO: Opens eyes to voice. Follows commands. SKIN: No significant rashes, sores or wounds noted on exposed skin. PSYCH: Initially conversational, then became agitated, was apologetic afterwards. Paranoid. Screamed in pain when gently examined. LABS, MICROBIOLOGY and STUDIES reviewed in [facility]. ASSESSMENT & PLAN Carter Raymundo is a 69 y.o. male with a relevant past medical history of HTN, CKD, schizoaffectivedisorder, and drug-induced parkinsonism, who initially presented with unresponsiveness, asphaia, and possible left facial droop concerning for stroke versus TME, but with unremarkable workup. Admitted to medicine for monitoring and re-initiation of clozapine dosing, now medically stable pending inpatient psych placement for decompensated schizoaffective disorder. ACTIVE ISSUES # Brief episode of unresponsiveness # Schizoaffective disorder # Acute delirium Patient initially presenting with acute onset of unresponsiveness, aphasia, and concern for ?facialasymmetry. CTH w/o stroke. MRIb normal. Workup for toxic metabolic encephalopathy negative. Multiple EEGs with no evidence of seizures. During admission, has had multiple triggers called for unresponsiveness (not true catatonia per psych) with no clear trigger. Labs from triggers thus far have all been unremarkable. His ongoing presentation is likely secondary to acute delirium superimposed on known decompensated schizoaffective disorder that is persistent even with careful titration of his psychiatric medications. Cx - Per Neuro, no clear neurologic explanation for episodes of unresponsiveness - Psych following, appreciate recs Dx - LFT daily starting 05/25 in event of needed psych med uptitration - QTC mildly prolonged, EKG today. Tx - Holding home buproprion 100mg TID for now per Psychiatry - Psych adjusting clozapine dosinmg qAM + 125mg qHS per Psychiatry. - Continue depakote 250 mg TID per Psychiatry - Continue standing haloperidol 1 mg BID to augment treatment for psychosis - Continue with lowered Sinemet dose in case is contributing to agitation and paranoia per patient's outpatient neurologist, Marilyn Raygoza MD - C/h trazodone 150mg qHs - Agitation: haloperidol 2 mg IM PRN. D/c'ed Ativan in case that is worsening delirium - Ramelteon 8 mg at bedtime - Per psych meets section 12 criteria, cannot leave AMA. HCP has been affirmed - Patient is medically clear for psych bed placement, will encourage to work with PT and get out ofbed as able - Plan for weekly interdisciplinary meetings on Sunday 2pm #COVID + #LLL Consolidation RVP sent 05/24 for increased tachycardia and transient hypoxemia. COVID positive. CXR with new LLL consolidation (prior XR 2 days prior). Currently patient does have peripheral IV access, but has not been able to receive the Remdesivir. Will touch base with psych for possible sedating regimen to start remdesivir today. - Starting remdesivir for COVID (medication interactions w/ Paxlovid) - At this time, suspect lung consolidation is related to COVID rather than new PNA, especially given pt does not have an increased WBC. Will treat COVID for now and consider additional HAP coverage if he does not improve. - Transition to daily CBC to monitor WBC iso possible pna #Constipation Severe stool burden on KUB while on clozapine. Repeat KUB 04/30 with rectal stool ball. - Bowel reg: scheduled Miralax, senna BID, lactulose - Mag citrate 05/19, 05/20 - Large BM 05/21 and 83pm # Dysphagia with G tube reliance Patient with history of oropharyngeal dysphagia. Pulled out G tube 04/19 AM and again 05/11 overnight. - G tube replaced with IR 05/12 # Transient hypoxia # C/f aspiration pneumonitis Patient with history of oropharyngeal dysphagia with G tube in place. Brief episode of hypoxia on admission that resolved quickly, possible 2/2 aspiration. At the [facility], he is on a pureed diet. High risk for aspiration. 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 EKG's to date all consistent with sinus tachycardia. - CTM CHRONIC / STABLE ISSUES # Drug-induced Parkinsonism - Continuing reduced dose Sinemet as above # CAD # HTN - C/h statin # CKD - Trending Cr, currently at baseline # BPH - C/h tamsulosin # GERD - C/h pepcid CORE MEASURES - FEN: IVF PRN, replenish electrolytes, Diet Modified Texture; Pureed; Thin Liquids; Deliver To Nursing, Finger Foods/No Utensils, No Sharps, Safety Tray - PAML complete - Functional Status: Independent without use of assistive devices for ambulation - DVT prophylaxis: SC low molecular weight heparin - Access: None - Code: Full Code - Contact: brother Lr, Patient Contacts Name Legal Rel Relationship Phone Active Delvin Raymundo Brother - Disposition: -- Anticipated discharge to: [facility] -- Anticipated discharge date: t+2 -- Anticipated discharge barriers: Pending placement Extended Emergency Contact Information Primary Emergency Contact: Delvin Raymundo Mobile Relation: Brother Silver Solderer needed? No Patricia Holden MD Dept of Medicine Cosigned by Rabia Velasco MD at 05/25/2025 3:47 PM EDT Associated attestation - Rabia Velasco MD - 05/25/2025 3:47 PM EDT I have seen and examined the patient, reviewed the findings and plan of care as documented by Dr. Holden and agree, except for any additional comments below. Mr. Raymundo: 69M hx Schizoaffective disorder c/b drug-induced parkinsonism, HTN p/w L facial droop with negative stroke workup c/f psychiatric decompensation awaiting psych bed. C/c/b COVID infection now on remdesivir. Patient received first dose of remdesivir overnight without issues, will plan for 5 days of therapy. Up to 4L NC this afternoon but has been breathing through his mouth, will consider dexamethasone and/or HAP treatment if his oxygenation is not improving. Qtc is still prolonged at 508 ms, careful with PRN Qtc prolonging medications. Check LFTs daily while on depakote and remdesivir. Rabia Velasco MD Section of Hospital Medicine [facility] * Nicole Willoughby RN - 05/25/2025 7:01 AM EDT Pt alert, unable to assess orientation. HR elevated. Other VSS, on RA. Pt c/o R shoulder pain, scheduled tylenol and ice packs provided w presumed good effect, pt sleeping on recheck. Pt w visible tremors in his BUE. When asked if the tremors were from pain, being cold, or his baseline, pt stated that he was not able to say - MD Fall aware. Strong congested cough present. COVID+, Droplet+ precautions in place. Gtube in place, Jevity 1.5 running at goal, pt tolerating well.1x large loose BM.Urine samples sent. Pt expressing paranoid delusions. Soft wrist restraints d/c. 1:[address] Frequent safety checks performed, safety maintained. * Nicole Willoughby RN - 05/24/2025 7:30 AM EDT Pt alert, unable to assess orientation. HR elevated. Other VSS, on RA. Strong congested cough present. Gtube in place, Jevity 1.5 running at goal, pt tolerating well. 1x loose BM. Pt expressing paranoid delusions and yelling at staff at beginning of shift. Soft wrist restraints d/c. 1:[address]. Frequent safety checks performed, safety maintained. * Karrie Starks MD - 05/24/2025 6:50 AM EDT Images from the original note were not included. [facility] Department of Medicine [facility] Medicine Progress Note Patient: Carter Raymundo Admission Date: 04/15/2025 Length of Stay: 38 PCP: Kilo Huynh Attending: Rabia Velasco MD Chief Complaint: Altered mental status OVERNIGHT EVENTS Agitated, spitting on nurses. SUBJECTIVE When asked how he is doing, says I have a long road ahead of me . Does not give any additional subjective this AM. OBJECTIVE DATA VITALS T 99 ??F (37.2 ??C) HR (!) 129 BP 134/77 RR 16 SpO2 92 % O2 Device: None (Room air) 75.8 kg (167 lb 1.7 oz) Body mass index is 23.31 kg/m??. PHYSICAL EXAM GENERAL: NAD, resting in bed, appears calm. HEENT: No scleral icterus, moist mucous membranes. CARDIAC: Clinically well perfused. LUNG: Appears in no respiratory distress. No accessory muscle use. ABD: No abdominal abnormalities on inspection. MSK: No focal joint swelling or deformities. NEURO: Opens eyes to voice. Follows commands. SKIN: No significant rashes, sores or wounds noted on exposed skin. PSYCH: Calm. Paranoid. LABS, MICROBIOLOGY and STUDIES reviewed in Epic. ASSESSMENT & PLAN Carter Raymundo is a 69 y.o. male with a relevant past medical history of HTN, CKD, schizoaffectivedisorder, and drug-induced parkinsonism, who initially presented with unresponsiveness, asphaia, and possible left facial droop concerning for stroke versus TME, but with unremarkable workup. Admitted to medicine for monitoring and re-initiation of clozapine dosing, now medically stable pending inpatient psych placement for decompensated schizoaffective disorder. ACTIVE ISSUES # Brief episode of unresponsiveness # Schizoaffective disorder # Acute delirium Patient initially presenting with acute onset of unresponsiveness, aphasia, and concern for ?facialasymmetry. CTH w/o stroke. MRIb normal. Workup for toxic metabolic encephalopathy negative. Multiple EEGs with no evidence of seizures. During admission, has had multiple triggers called for unresponsiveness (not true catatonia per psych) with no clear trigger. Labs from triggers thus far have all been unremarkable. His ongoing presentation is likely secondary to acute delirium superimposed on known decompensated schizoaffective disorder that is persistent even with careful titration of his psychiatric medications. Cx - Per Neuro, no clear neurologic explanation for episodes of unresponsiveness - Psych following, appreciate recs Dx - Repeat CBC/RFP/LFTs in the AM Tx - Holding home buproprion 100mg TID for now per Psychiatry - Psych adjusting clozapine dosinmg qAM + 125mg qHS per Psychiatry. - Continue depakote 250 mg TID per Psychiatry - Continue standing haloperidol 1 mg BID to augment treatment for psychosis - Continue with lowered Sinemet dose in case is contributing to agitation and paranoia per patient's outpatient neurologist, Marilyn Raygoza MD - C/h trazodone 150mg qHs - Agitation: haloperidol 2 mg IM PRN. D/c'ed Ativan in case that is worsening delirium - Ramelteon 8 mg at bedtime - Per psych meets section 12 criteria, cannot leave AMA. HCP has been affirmed - Patient is medically clear for psych bed placement, will encourage to work with PT and get out ofbed as able - Plan for weekly interdisciplinary meetings on Sunday 2pm #COVID + #LLL Consolidation RVP sent 05/24 for increased tachycardia and transient hypoxemia. COVID positive. CXR with new LLL consolidation (prior XR 2 days prior). - Starting remdesivir for COVID (medication interactions w/ Paxlovid) - At this time, suspect lung consolidation is related to COVID rather than new PNA, especially given pt does not have an increased WBC. Will treat COVID for now and consider additional HAP coverage if he does not improve. #Constipation Severe stool burden on KUB while on clozapine. Repeat KUB 04/30 with rectal stool ball. - Bowel reg: scheduled Miralax, senna BID, lactulose - Mag citrate 05/19, 05/20 - Large BM 05/21 # Dysphagia with G tube reliance Patient with history of oropharyngeal dysphagia. Pulled out G tube 04/19 AM and again 05/11 overnight. - G tube replaced with IR 05/12 # Transient hypoxia # C/f aspiration pneumonitis Patient with history of oropharyngeal dysphagia with G tube in place. Brief episode of hypoxia on admission that resolved quickly, possible 2/2 aspiration. At the [facility], he is on a pureed diet. High risk for aspiration. 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 EKG's to date all consistent with sinus tachycardia. - CTM CHRONIC / STABLE ISSUES # Drug-induced Parkinsonism - Continuing reduced dose Sinemet as above # CAD # HTN - C/h statin # CKD - Trending Cr, currently at baseline # BPH - C/h tamsulosin # GERD - C/h pepcid CORE MEASURES - FEN: IVF PRN, replenish electrolytes, Diet Modified Texture; Pureed; Thin Liquids; Deliver To Nursing, Finger Foods/No Utensils, No Sharps, Safety Tray - PAML complete - Functional Status: Independent without use of assistive devices for ambulation - DVT prophylaxis: SC low molecular weight heparin - Access: None - Code: Full Code - Contact: brother Lr, Patient Contacts Name Legal Rel Relationship Phone Active Delvin Raymundo Brother - Disposition: -- Anticipated discharge to: [facility] -- Anticipated discharge date: t+2 -- Anticipated discharge barriers: Pending placement Extended Emergency Contact Information Primary Emergency Contact: Delvin Raymundo Mobile Relation: Brother Silver Solderer needed? No Karrie Starks MD Dept of Medicine Cosigned by Rabia Vleasco MD at 05/24/2025 1:55 PM EDT Associated attestation - Rabia Velasco MD - 05/24/2025 1:55 PM EDT I have seen and examined the patient, reviewed the findings and plan of care as documented by Dr. Starks and agree, except for any additional comments below. Mr. Raymundo: 69M hx Schizoaffective disorder c/b drug-induced parkinsonism, HTN p/w L facial droop with negative stroke workup c/f psychiatric decompensation awaiting psych bed. C/c/b COVID infection. COVID positive today after found to have SIRS (Tm 101.5, HR increased to 120s above normal 90-100s,SpO2 decreased to 89-90% on room air). CXR read with large LLL consolidation but not entirely impressive on my read. Given productive cough and high aspiration risk, low threshold to grab sputum cultures and start empiric abx but agree with starting remdesivir for now and monitor for improvement. Obtain procalcitonin with morning labs. Rabia Velasco MD Section of Hospital Medicine [facility] * Agustín Vazquez MD - 05/23/2025 3:20 PM EDT Images from the original note were not included. [facility] Department of Medicine [facility] Medicine Progress Note Patient: Carter Raymundo Admission Date: 04/15/2025 Length of Stay: 37 PCP: Kilo Huynh Attending: Rabia Velasco MD Chief Complaint: Altered mental status OVERNIGHT EVENTS Agitated overnight swinging extremities at staff SUBJECTIVE Asked patient how he was feeling today and he says wouldn't you like to know? . When asked if he is in pain or if anything is bothering him he says no. He then asked me to leave the room. Appears comfortable in bed. OBJECTIVE DATA VITALS T 98.8 ??F (37.1 ??C) HR (!) 118 BP (!) 147/81 RR 18 SpO2 94 % O2 Device: None (Room air) 75.8 kg (167 lb 1.7 oz) Body mass index is 23.31 kg/m??. PHYSICAL EXAM GENERAL: NAD, resting in bed, appears calm. HEENT: No scleral icterus, moist mucous membranes. CARDIAC: Clinically well perfused. LUNG: Appears in no respiratory distress. No accessory muscle use. ABD: No abdominal abnormalities on inspection. MSK: No focal joint swelling or deformities. NEURO: Opens eyes to voice. Follows commands. SKIN: No significant rashes, sores or wounds noted on exposed skin. PSYCH: Calm. Paranoid. LABS, MICROBIOLOGY and STUDIES reviewed in Epic. ASSESSMENT & PLAN Carter Raymundo is a 69 y.o. male with a relevant past medical history of HTN, CKD, schizoaffectivedisorder, and drug-induced parkinsonism, who initially presented with unresponsiveness, asphaia, and possible left facial droop concerning for stroke versus TME, but with unremarkable workup. Admitted to medicine for monitoring and re-initiation of clozapine dosing, now medically stable pending inpatient psych placement for decompensated schizoaffective disorder. ACTIVE ISSUES # Brief episode of unresponsiveness # Schizoaffective disorder # Acute delirium Patient initially presenting with acute onset of unresponsiveness, aphasia, and concern for ?facialasymmetry. CTH w/o stroke. MRIb normal. Workup for toxic metabolic encephalopathy negative. Multiple EEGs with no evidence of seizures. During admission, has had multiple triggers called for unresponsiveness (not true catatonia per psych) with no clear trigger. Labs from triggers thus far have all been unremarkable. His ongoing presentation is likely secondary to acute delirium superimposed on known decompensated schizoaffective disorder that is persistent even with careful titration of his psychiatric medications. Cx - Per Neuro, no clear neurologic explanation for episodes of unresponsiveness - Psych following, appreciate recs Dx - Repeat CBC/RFP/LFTs in the AM Tx - Holding home buproprion 100mg TID for now per Psychiatry - Psych adjusting clozapine dosinmg qAM + 125mg qHS per Psychiatry. - Continue depakote 250 mg TID per Psychiatry - Continue standing haloperidol 1 mg BID to augment treatment for psychosis - Continue with lowered Sinemet dose in case is contributing to agitation and paranoia per patient's outpatient neurologist, Marilyn Raygoza MD - C/h trazodone 150mg qHs - Agitation: haloperidol 2 mg IM PRN. D/c'ed Ativan in case that is worsening delirium - Ramelteon 8 mg at bedtime - Per psych meets section 12 criteria, cannot leave AMA. HCP has been affirmed - Patient is medically clear for psych bed placement, will encourage to work with PT and get out ofbed as able - Plan for weekly interdisciplinary meetings on Sunday 2pm #Constipation - resolved Severe stool burden on KUB while on clozapine. Repeat KUB 04/30 with rectal stool ball. - Bowel reg: scheduled Miralax, senna BID, lactulose - Mag citrate 05/19, 05/20 - Large BM 05/21 # Dysphagia with G tube reliance Patient with history of oropharyngeal dysphagia. Pulled out G tube 04/19 AM and again 05/11 overnight. - G tube replaced with IR 05/12 # Transient hypoxia # C/f aspiration pneumonitis Patient with history of oropharyngeal dysphagia with G tube in place. Brief episode of hypoxia on admission that resolved quickly, possible 2/2 aspiration. At the [facility], he is on a pureed diet. High risk for aspiration. - Continue pureed diet - Deferring SOLAR DESIGN ENGINEER for now - Nutrition consulted, appreciate recs - Repeat CXR 05/22 without any consolidations # Sinus Tachycardia Pt consistently tachycardic in 90s - low 100s during this hospitalization. EKG's to date all consistent with sinus tachycardia. - CTM CHRONIC / STABLE ISSUES # Drug-induced Parkinsonism - Continuing reduced dose Sinemet as above # CAD # HTN - C/h statin # CKD - Trending Cr, currently at baseline # BPH - C/h tamsulosin # GERD - C/h pepcid CORE MEASURES - FEN: IVF PRN, replenish electrolytes, Diet Modified Texture; Pureed; Thin Liquids; Deliver To Nursing, Finger Foods/No Utensils, No Sharps, Safety Tray - PAML complete - Functional Status: Independent without use of assistive devices for ambulation - DVT prophylaxis: SC low molecular weight heparin - Access: None - Code: Full Code - Contact: brother Lr, Patient Contacts Name Legal Rel Relationship Phone Active Delvin Raymundo Brother - Disposition: -- Anticipated discharge to: [facility] -- Anticipated discharge date: t+2 -- Anticipated discharge barriers: Pending placement Extended Emergency Contact Information Primary Emergency Contact: Delvin Raymundo Mobile Relation: Brother Silver Solderer needed? No Agustín Vazquez MD Dept of Medicine Cosigned by Rabia Velasco MD at 05/23/2025 3:34 PM EDT Associated attestation - Rabia Velasco MD - 05/23/2025 3:34 PM EDT I have seen and examined the patient, reviewed the findings and plan of care as documented by Dr. Vazquez and agree, except for any additional comments below. Mr. Raymundo: 69M hx Schizoaffective disorder c/b drug-induced parkinsonism, HTN p/w L facial droop with negative stroke workup c/f psychiatric decompensation awaiting psych bed. No medical updates, patient is taking PO medications as prescribed. Checking LFTs tomorrow for depakote monitoring. No bowel movement documented since 05/21. Last EKG 05/21 with Qtc 507 ms, continue tomonitor q2-3 days. Rabia Velasco MD Section of Hospital Medicine [facility] * Kimani Rivas MD - 05/22/2025 11:15 AM EDT Images from the original note were not included. [facility] PSYCHIATRIC CONSULTATION FOLLOW-UP NOTE INTERVAL HPI: - NAEON - No recent episodes of agitation overnight or this morning - Patient received nighttime dose of clozapine this AM - Paranoia regarding PCT Patient recognizes TW on interview. He reports TW is not a real doctor. He denies acute complaints including pain. He inappropriately laughs and then when asked why he denies laughing. He declines toanswer cognitive questions. REVIEW OF SYSTEMS: As per HPI EXAM: 05/22/2025 7:54 AM Vital Signs Temperature 98.7 ??F (37.1 ??C) Heart Rate 105 Heart Rate Source Monitor Respiration 18 SpO2 94 % Blood Pressure 137/93 Neurological: Motor: no abnormal movements or motor symptoms appreciated on physical exam including tremor, spasm, rigidity; spontaneous movements of all extremities b/l Cognitive: Wakefulness/alertness: awake and alert Orientation: unable to assess Attention: Unable to assess Memory: unable to assess Mental Status: Appearance: appears stated age, unkempt, in hospital gown Behavior: intermittent eye contact, guarded, uncooperative Mood: ... Affect: irritable, constricted, labile Speech: minimal; normal rate/tone/volume Thought process: grossly disorganized Thought content and perceptions: general paranoia regarding staff, unable to assess SI/HI/AVH Insight and judgment: poor/poor MEDICATIONS: Scheduled Meds:Scheduled Medications[1] Continuous Infusions:Infusions Meds[2] PRN Meds:.PRN Medications[3] DATA: Reviewed. ASSESSMENT: Carter Raymundo is a 69 y.o. male with past psych history of schizoaffective disorder on clozapine,past medical history of hypertension, CKD, oropharyngeal dysphagia c/b frequent aspiration now s/p PEG, drug-induced Parkinsonism, who presented from nursing facility with altered mental status with unresponsiveness and aphasia, now medically cleared. Psychiatry initially consulted for assistance with diagnostic clarification, with initial differential ddx of catatonia vs delirium/encephalopathy vs decompensated psychosis. On evaluation today, patient presentation significant for ongoing irritability and paranoia. There has been modest improvement in agitation this week and he has been adherent to his medication regimen. Appreciate repeat medical work up as his hospital stay is prolonged to rule out potential contributions to delirium. Have still been unable to formally reassess cognition and mental status due to limited patient participation and agitation; psychotic symptoms including paranoia, delusions, and disorganized behaviors are apparent per observation and staff reports. Scheduled depakote to help manage patient irritability, intermittent agitation (historical med). Scheduling Haldol as well as having Haldol PRN while monitoring QTc and potential to worsen EPS while more acutely agitated/psychotic.Given worsening agitation has been distressing for both the patient and staff, it is reasonable to accept present risk to address this concern. Given cognition at this time is unclear, will attempt to limit polypharmacy and avoid Ativan due to concerns for worsening potential delirium. Patient presentation currently consistent with acute psychosis in the setting of schizoaffective disorder, delirium and/or underlying neurocognitive disorder (not previously diagnosed per records). Catatonia was deemed unlikely given isolated symptom of mutism, intermittent stupor without muscle rigidity/waxy flexibility, and also the limited effect of benzodiazepines on clinical course. No structural intracranial abnormalities on imaging. Multiple EEGs demonstrate no seizure, findings more consistent with delirium but non-specific. Regarding psychiatric symptoms, he is paranoid, endorses delusions, has endorsed SI, made verbal threats to staff, does not have known AVH. Holding bupropion, lowering Sinemet dose as able to facilitate decrease in agitation which appears primarily related to psychosis at this time. Currently on previous home clozapine dose. Brother reports at baseline patient is relatively high-functioning, pleasant, not overtly paranoid. At this point, no concern for acute medical illness, and behavior seems primarily related to underlying schizoaffective disorder. Primary medical team has cleared patient for inpatient psychiatric bed placement. Repeat labs unremarkable, repeat CXR negative for acute findings (05/22). Weekly interdisciplinary meeting held today 05/22 to discuss patient's recent behavior and dispo barriers. Addressing agitation with clozapine, recent uptitration of depakote recommendations as necessary. For dispo, patient will need to demonstrate improvement in mobility (first actionable goal out of bed to chair), cooperation with care. HCP affirmed on 05/20 for substitute decision making. Patient on section 12 due to inability to care for self and acute risk of psychiatric decompensation, bed search in progress. DSM-5 DIAGNOSIS: Schizoaffective disorder R/o delirium R/o unspecified neurocognitive disorder RECOMMENDATIONS: #LEGAL Patient remains on section 12, cannot leave AMA, bed search in progress Continue 1:1 sitter #MANAGEMENT Note last Qtc: Qtc: 507 on 05/21 - Uri; consider repeat EKG q2-3 days as able for monitoring of QTc Continue delirium precautions --> Emphasize strong diurnal cues including windows open during day, limit disruptions overnight, practice avoidance of deliriogenic drugs as possible, mobilize throughout the day as possible, optimize nutrition, ensure normal regular bowel movements, and treat pain to the extent possible Clozapine dosing: c/w 25mg qAM+150mg qHS C/w depakote 250mg PO TID Please repeat basic labs including LFTs while on depakote Please check depakote level at trough Friday 05/25 Please continue efforts to ensure bowel movement while on clozapine with consistent documentation bowel movements (Last BM today 05/21) C/w gabapentin dose to 100 mg qAM+300mg QHS Continue to hold Wellbutrin 100 mg TID Continue ramelteon 8 mg QHS Continue trazodone 150 mg QHS Continue standing Haldol 1mg PO BID Consider standing acetaminophen for pain Please d/c lorazepam to reduce risk of worsening delirium For mild/moderate agitation, offer haloperidol 1mg PO BID PRN May give Haldol 2 mg IM for refractory acute agitation, monitoring closely for EPS; may repeat samedose if no response in 30 mins; would re-engage psychiatry if requiring multiple doses Psychiatry will continue to follow Kimani Rivas MD PGY2, Department of Psychiatry Psychiatry Consultation-Liaison Service Case discussed with attending psychiatrist Dr. Kymberly Mata. Please page [phone] overnight for any questions or concerns regarding acute psychiatric emergencies. [1] atorvaSTATin, 20 mg, G-tube, QHS [Held by provider] buPROPion, 100 mg, G-tube, TID carbidopa-levodopa, 0.5 tablet, G-tube, TID cloZAPine, 150 mg, G-tube, QHS cloZAPine, 25 mg, G-tube, Daily divalproex, 250 mg, Oral, TID enoxaparin, 40 mg, Subcutaneous, Q24H CLAUDIA famotidine, 20 mg, G-tube, BID gabapentin, 100 mg, G-tube, QAM gabapentin, 300 mg, G-tube, QHS haloperidoL, 1 mg, G-tube, BID lactulose, 20 g, G-tube, TID lidocaine, 1 patch, Topical, Q24H [START ON 05/23/2025] multivitamin with minerals, 15 mL, G-tube, Daily sodium chloride, 3 mL, Intravenous, Q12H CLAUDIA polyethylene glycol, 17 g, G-tube, BID ramelteon, 8 mg, G-tube, QHS sennosides, 17.6 mg, G-tube, BID tamsulosin, 0.4 mg, G-tube, QHS traZODone, 150 mg, G-tube, Nightly [2] [3] acetaminophen bisacodyl calcium carbonate guaiFENesin haloperidol lactate iohexoL LORazepam Insert and Maintain Peripheral IV AND sodium chloride AND sodium chloride * Karrie Starks MD - 05/22/2025 6:51 AM EDT Images from the original note were not included. [facility] Department of Medicine [facility] Medicine Progress Note Patient: Carter Raymundo Admission Date: 04/15/2025 Length of Stay: 36 PCP: Kilo Huynh Attending: Imelda Xie MD Chief Complaint: Altered mental status OVERNIGHT EVENTS NAEON. Refusing tubes feeds. SUBJECTIVE Says you have deceived me too many times and I see no evidence of good care. Wants orange juice. Unable to obtain additional subjective this AM. OBJECTIVE DATA VITALS T 98.7 ??F (37.1 ??C) HR (!) 98 BP 129/77 RR 18 SpO2 97 % O2 Device: None (Room air) 75.8 kg (167 lb 1.7 oz) Body mass index is 23.31 kg/m??. PHYSICAL EXAM GENERAL: NAD, resting in bed, appears calm. HEENT: No scleral icterus, moist mucous membranes. CARDIAC: Clinically well perfused. LUNG: Appears in no respiratory distress. No accessory muscle use. ABD: No abdominal abnormalities on inspection. MSK: No focal joint swelling or deformities. NEURO: Opens eyes to voice. Follows commands. SKIN: No significant rashes, sores or wounds noted on exposed skin. PSYCH: Calm. Paranoid. LABS, MICROBIOLOGY and STUDIES reviewed in Epic. ASSESSMENT & PLAN Carter Raymundo is a 69 y.o. male with a relevant past medical history of HTN, CKD, schizoaffectivedisorder, and drug-induced parkinsonism, who initially presented with unresponsiveness, asphaia, and possible left facial droop concerning for stroke versus TME, but with unremarkable workup. Admitted to medicine for monitoring and re-initiation of clozapine dosing, now medically stable pending inpatient psych placement for decompensated schizoaffective disorder. ACTIVE ISSUES # Brief episode of unresponsiveness # Schizoaffective disorder # Acute delirium Patient initially presenting with acute onset of unresponsiveness, aphasia, and concern for ?facialasymmetry. CTH w/o stroke. MRIb normal. Workup for toxic metabolic encephalopathy negative. Multiple EEGs with no evidence of seizures. During admission, has had multiple triggers called for unresponsiveness (not true catatonia per psych) with no clear trigger. Labs from triggers thus far have all been unremarkable. His ongoing presentation is likely secondary to acute delirium superimposed on known decompensated schizoaffective disorder that is persistent even with careful titration of his psychiatric medications. Cx - Per Neuro, no clear neurologic explanation for episodes of unresponsiveness - Psych following, appreciate recs Dx - CBC with diff largely stable during admission w/ normal ANC, recheck weekly Tx - Holding home buproprion 100mg TID for now per Psychiatry - Psych adjusting clozapine dosinmg qAM + 125mg qHS per Psychiatry. - Continue depakote 250 mg TID per Psychiatry - Continue standing haloperidol 1 mg BID to augment treatment for psychosis - Continue with lowered Sinemet dose in case is contributing to agitation and paranoia per patient's outpatient neurologist, Marilyn Raygoza MD - C/h trazodone 150mg qHs - Agitation: haloperidol 2 mg IM PRN. D/c'ed Ativan in case that is worsening delirium - Ramelteon 8 mg at bedtime - Per psych meets section 12 criteria, cannot leave AMA. HCP has been affirmed - Patient is medically clear for psych bed placement, will encourage to work with PT and get out ofbed as able - Plan for weekly interdisciplinary meetings on Sunday 2pm #Constipation - resolved Severe stool burden on KUB while on clozapine. Repeat KUB 04/30 with rectal stool ball. - Bowel reg: scheduled Miralax, senna BID, lactulose - Mag citrate 05/19, 05/20 - Large BM 05/21 # Dysphagia with G tube reliance Patient with history of oropharyngeal dysphagia. Pulled out G tube 04/19 AM and again 05/11 overnight. - G tube replaced with IR 05/12 # Transient hypoxia # C/f aspiration pneumonitis Patient with history of oropharyngeal dysphagia with G tube in place. Brief episode of hypoxia on admission that resolved quickly, possible 2/2 aspiration. At the [facility], he is on a pureed diet. High risk for aspiration. - Continue pureed diet - Deferring SOLAR DESIGN ENGINEER for now - Nutrition consulted, appreciate recs - Repeat CXR 05/22 for ongoing productive sounding cough # Sinus Tachycardia Pt consistently tachycardic in 90s - low 100s during this hospitalization. EKG's to date all consistent with sinus tachycardia. - CTM CHRONIC / STABLE ISSUES # Drug-induced Parkinsonism - Continuing reduced dose Sinemet as above # CAD # HTN - C/h statin # CKD - Trending Cr, currently at baseline # BPH - C/h tamsulosin # GERD - C/h pepcid CORE MEASURES - FEN: IVF PRN, replenish electrolytes, Diet Modified Texture; Pureed; Thin Liquids; Deliver To Nursing, Finger Foods/No Utensils, No Sharps, Safety Tray - PAML complete - Functional Status: Independent without use of assistive devices for ambulation - DVT prophylaxis: SC low molecular weight heparin - Access: None - Code: Full Code - Contact: brother Lr, Patient Contacts Name Legal Rel Relationship Phone Active Delvin Raymundo Brothmarisa - Disposition: -- Anticipated discharge to: nursing home facility -- Anticipated discharge date: t+2 -- Anticipated discharge barriers: Pending placement Extended Emergency Contact Information Primary Emergency Contact: Delvin Raymundo Mobile Relation: Brother Silver Solderer needed? No Karrie Starks MD Dept of Medicine Cosigned by Imelda Xie MD at 05/22/2025 5:14 PM EDT Associated attestation - Imelda Xie MD - 05/22/2025 5:14 PM EDT Images from the original note were not included. I have seen Mr. Raymundo, reviewed clinical data and the plan of care as outlined by Karrie Starks MD. I agree with the plan below except for the following adjustments: Mr. Raymundo: 69M hx Schizoaffective disorder c/b drug-induced parkinsonism, HTN p/w L facial droop with negative stroke workup c/f psychiatric decompensation awaiting psych bed No medical updates. Had our 2p meeting and discussed decreasing his bowel regimen slightly. Still awaiting psych placement. I personally spent >50 minutes on the care of this patient today including but not limited to reviewing medical history, interpreting data, patient interview and examination, communication with family, care coordination, and EPIC documentation. -- Imelda Watt??MD shelly, MBE Hospitalist, [facility] * Kimani Rivas MD - 05/21/2025 11:47 AM EDT Images from the original note were not included. [facility] PSYCHIATRIC CONSULTATION FOLLOW-UP NOTE INTERVAL HPI: - Patient engaging more appropriate with nursing today - Patient spitting on PCT early this AM during brief interaction - had bowel movement today per nursing On interview, patient reports this physician underwriter has an evil look in his eye. He states that he is beingtortured here and would here. He becomes tearful when talking about his experiences. He refers to this physician underwriter briefly as Delvin . He politely requests this physician underwriter to leave the room and says he would speak again if there was a change in form . REVIEW OF SYSTEMS: As per HPI EXAM: 05/21/2025 8:03 AM Vital Signs Temperature 98.7 ??F (37.1 ??C) Heart Rate 98 Respiration 18 SpO2 97 % Blood Pressure 129/77 Neurological: Motor: no abnormal movements or motor symptoms appreciated on physical exam including tremor, spasm, rigidity; spontaneous movements of all extremities b/l Cognitive: Wakefulness/alertness: awake and alert Orientation: unable to assess Attention: Unable to assess Memory: unable to assess Mental Status: Appearance: appears stated age, unkempt, in hospital gown Behavior: good eye contact, withdrawn, guarded, uncooperative Mood: ... Affect: tearful, constricted, stable Speech: minimal; normal rate/tone/volume Thought process: grossly disorganized Thought content and perceptions: general paranoia regarding staff, unable to assess SI/HI/AVH Insight and judgment: poor/poor MEDICATIONS: Scheduled Meds:Scheduled Medications[1] Continuous Infusions:Infusions Meds[2] PRN Meds:.PRN Medications[3] DATA: Reviewed. ASSESSMENT: Carter Raymundo is a 69 y.o. male with past psych history of schizoaffective disorder on clozapine,past medical history of hypertension, CKD, oropharyngeal dysphagia c/b frequent aspiration now s/p PEG, drug-induced Parkinsonism, who presented from nursing facility with altered mental status with unresponsiveness and aphasia, now medically cleared. Psychiatry initially consulted for assistance with diagnostic clarification, with initial differential ddx of catatonia vs delirium/encephalopathy vs decompensated psychosis. On evaluation today, patient presentation significant for mild improvement in irritability, social behaviors. He engages in conversation more readily and demonstrates more reasonable social comportment. He is adherent to his medication regimen. Due to concerns for ongoing or reoccurence of acute del irium, would reasonable to repeat medical work up as his hospital stay is prolonged. Have still been unable to formally reassess cognition and mental status due to limited patient participation and agitation; psychotic symptoms including paranoia, delusions, and disorganized behaviors are apparent per observation and staff reports. Plan to continue to uptitrate depakote today to help manage patient irritability, intermittent agitation (historical med). Scheduling Haldol as well as having HaldolPRN while monitoring QTc and potential to worsen EPS while more acutely agitated/psychotic. Given worsening agitation has been distressing for both the patient and staff, it is reasonable to accept present risk to address this concern. Given cognition at this time is unclear, will attempt to limit polypharmacy and avoid Ativan due to concerns for worsening potential delirium. Patient presentation currently consistent with acute psychosis in the setting of schizoaffective disorder, delirium and/or underlying neurocognitive disorder (not previously diagnosed per records. Catatonia was deemed unlikely given isolated symptom of mutism, intermittent stupor without muscle rigidity/waxy flexibility, and also the limited effect of benzodiazepines on clinical course. No structural intracranial abnormalities on imaging. Multiple EEGs demonstrate no seizure, findings more consistent with delirium but non-specific. Regarding psychiatric symptoms, appears paranoid, endorses delusions, previously endorsed passive SI, made verbal threats to staff, does not have known AVH. Holding bupropion, lowering Sinemet dose as able to facilitate decrease in agitation which appears primarily related to psychosis at this time. Currently on previous home clozapine dose. Brother reports at baseline patient is relatively high- functioning, pleasant, not overtly paranoid. At this point, noconcern for acute medical illness, and behavior seems primarily related to underlying schizoaffective disorder. Primary medical team has cleared patient for inpatient psychiatric bed placement. Interdisciplinary meeting held 05/15 to discuss patient's recent escalating behavior and dispo barriers; next scheduled for tomorrow 05/22. Will need to first address paranoia, agitation with clozapine uptitration, updated agitation recommendations as necessary. For dispo, patient will need to demonstrate improvement in mobility, cooperation with care. HCP affirmed on 05/20 for substitute decision making. Patient on section 12 due to inability to care for self and acute risk of psychiatric decompensation, bed search in progress. DSM-5 DIAGNOSIS: Schizoaffective disorder R/o delirium R/o unspecified neurocognitive disorder RECOMMENDATIONS: #LEGAL Patient remains on section 12, cannot leave AMA, bed search in progress Continue 1:1 sitter #MANAGEMENT Note last Qtc: Qtc: 507 on 05/21 -Uri; consider repeat EKG q2-3 days as able for monitoring of QTc Continue delirium precautions --> Emphasize strong diurnal cues including windows open during day, limit disruptions overnight, practice avoidance of deliriogenic drugs as possible, mobilize throughout the day as possible, optimize nutrition, ensure normal regular bowel movements, and treat pain to the extent possible Consider repeating delirium work up as indicated given persistent tachycardia, leukocytosis with repeat CXR, UA, repeat metabolic panel Clozapine dosing: c/w 25mg qAM+150mg qHS Please increase depakote to 250mg PO TID Please repeat basic labs including LFTs while on depakote Please continue efforts to ensure bowel movement while on clozapine with consistent documentation bowel movements (Last BM today 05/21) C/w gabapentin dose to 100 mg qAM+300mg QHS Continue to hold Wellbutrin 100 mg TID Continue ramelteon 8 mg QHS Continue trazodone 150 mg QHS Continue standing Haldol 1mg PO BID Consider standing acetaminophen for pain Please d/c lorazepam to reduce risk of worsening delirium For mild/moderate agitation, offer haloperidol 1mg PO BID PRN May give Haldol 2 mg IM for refractory acute agitation, monitoring closely for EPS; may repeat samedose if no response in 30 mins; would re-engage psychiatry if requiring multiple doses Psychiatry will continue to follow Kimani Rivas MD PGY2, Department of Psychiatry Psychiatry Consultation-Liaison Service Case staffed with attending psychiatrist Dr. Kymberly Mata. Please page [phone] overnight for any questions or concerns regarding acute psychiatric emergencies. [1] atorvaSTATin, 20 mg, G-tube, QHS [Held by provider] buPROPion, 100 mg, G-tube, TID carbidopa-levodopa, 0.5 tablet, G-tube, TID cloZAPine, 150 mg, G-tube, QHS cloZAPine, 25 mg, G-tube, Daily divalproex, 250 mg, Oral, Q12H CLAUDIA enoxaparin, 40 mg, Subcutaneous, Q24H CLAUDIA famotidine, 20 mg, G-tube, BID gabapentin, 100 mg, G-tube, QAM gabapentin, 300 mg, G-tube, QHS haloperidoL, 1 mg, G-tube, BID lactulose, 20 g, Oral, TID lidocaine, 1 patch, Topical, Q24H multivitamin with minerals, 15 mL, Oral, Daily sodium chloride, 3 mL, Intravenous, Q12H CLAUDIA polyethylene glycol, 17 g, Oral, BID ramelteon, 8 mg, Oral, QHS sennosides, 17.6 mg, G-tube, BID tamsulosin, 0.4 mg, G-tube, QHS traZODone, 150 mg, G-tube, Nightly [2] [3] acetaminophen bisacodyl calcium carbonate guaiFENesin iohexoL LORazepam Insert and Maintain Peripheral IV AND sodium chloride AND sodium chloride Cosigned by Kymberly Mata MD at 05/21/2025 9:39 PM EDT Associated attestation - Kymberly Mata MD - 05/21/2025 9:39 PM EDT I was present with the resident during the evans portions of the service. I discussed the case with the resident and agree with the findings and plan as documented in the resident's note with the following addendum: Pt is more engaged on interview today. He continues to experience paranoid ideation toward staff. He states: you seem convincing, but everyone associated with this hospital is a lie. He denies depressed mood. He denies suicidal ideation. He continues to decline to participate in cognitive exam orROS. He informs me: I'm going to stop talking now and then stops participating in interview. Clinical impression c/w schizoaffective disorder, r/o contribution of delirium and/or underlying neurocognitive disorder. Assessment remains limited by lack of participation in interview; some improvement today. Would recommend continuing current management to target mood stabilization, psychosis and agitation. Most recent ECG with Qtc 507. Increase depakote to 250mg TID; recheck CBC, LFTs and trough VPA level on day 5. Continue to hold lorazepam. Will monitor for worsening EPS and constipationon current regimen. Pt continues to meet section 12 criteria due to impulsivity and disorganizationimpacting his ability to remain safe in the community. Appreciate ongoing monitoring with 1:1 observer. A bed search remains in progress for inpatient level of psychiatric care. HCP has been affirmedper team. * Karrie Starks MD - 05/21/2025 6:49 AM EDT Images from the original note were not included. [facility] Department of Medicine [facility] Medicine Progress Note Patient: Carter Raymundo Admission Date: 04/15/2025 Length of Stay: 35 PCP: Kilo Huynh Attending: Imelda Xie MD Chief Complaint: Altered mental status OVERNIGHT EVENTS NAEON SUBJECTIVE Says that he only wants to speak to a male nurse this morning. Does not give any other subjective this AM. OBJECTIVE DATA VITALS T 98.6 ??F (37 ??C) HR (!) 99 BP 131/88 RR 15 SpO2 95 % O2 Device: None (Room air) 75.8 kg (167 lb 1.7 oz) Body mass index is 23.31 kg/m??. PHYSICAL EXAM GENERAL: NAD, resting in bed, appears calm. HEENT: No scleral icterus, moist mucous membranes. CARDIAC: Clinically well perfused. LUNG: Appears in no respiratory distress. No accessory muscle use. Intermittent productive-soundingcough. ABD: No abdominal abnormalities on inspection. MSK: No focal joint swelling or deformities. NEURO: Opens eyes to voice. Follows commands. SKIN: No significant rashes, sores or wounds noted on exposed skin. PSYCH: Calm. Paranoid. LABS, MICROBIOLOGY and STUDIES reviewed in Epic. ASSESSMENT & PLAN Carter Raymundo is a 69 y.o. male with a relevant past medical history of HTN, CKD, schizoaffectivedisorder, and drug-induced parkinsonism, who initially presented with unresponsiveness, asphaia, and possible left facial droop concerning for stroke versus TME, but with unremarkable workup. Admitted to medicine for monitoring and re-initiation of clozapine dosing, now medically stable pending inpatient psych placement for decompensated schizoaffective disorder. ACTIVE ISSUES # Brief episode of unresponsiveness # Schizoaffective disorder # Acute delirium Patient initially presenting with acute onset of unresponsiveness, aphasia, and concern for ?facialasymmetry. CTH w/o stroke. MRIb normal. Workup for toxic metabolic encephalopathy negative. Multiple EEGs with no evidence of seizures. During admission, has had multiple triggers called for unresponsiveness (not true catatonia per psych) with no clear trigger. Labs from triggers thus far have all been unremarkable. His ongoing presentation is likely secondary to acute delirium superimposed on known decompensated schizoaffective disorder that is persistent even with careful titration of his psychiatric medications. Cx - Per Neuro, no clear neurologic explanation for episodes of unresponsiveness - Psych following, appreciate recs Dx - CBC with diff largely stable during admission w/ normal ANC, recheck weekly Tx - Holding home buproprion 100mg TID for now per Psychiatry - Psych adjusting clozapine dosinmg qAM + 125mg qHS per Psychiatry. - Increased to depakote 250 mg TID per Psychiatry - Start standing haloperidol 1 mg BID to augment treatment for psychosis - Continue with lowered Sinemet dose in case is contributing to agitation and paranoia per patient's outpatient neurologist, Marilyn Raygoza MD - C/h trazodone 150mg qHs - Agitation: haloperidol 2 mg IM PRN. D/c'ed Ativan in case that is worsening delirium - Ramelteon 8 mg at bedtime - Per psych meets section 12 criteria, cannot leave AMA. HCP has been affirmed - Patient is medically clear for psych bed placement, will encourage to work with PT and get out ofbed as able - Plan for weekly interdisciplinary meetings on Sunday 2pm #Constipation - resolved Severe stool burden on KUB while on clozapine. Repeat KUB 04/30 with rectal stool ball. - Bowel reg: scheduled Miralax, senna BID, lactulose - Mag citrate 05/19, 05/20 - Large BM 05/21 # Dysphagia with G tube reliance Patient with history of oropharyngeal dysphagia. Pulled out G tube 04/19 AM and again 05/11 overnight. - G tube replaced with IR 05/12 # Transient hypoxia # C/f aspiration pneumonitis Patient with history of oropharyngeal dysphagia with G tube in place. Brief episode of hypoxia on admission that resolved quickly, possible 2/2 aspiration. At the [facility], he is on a pureed diet. High risk for aspiration. 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 EKG's to date all consistent with sinus tachycardia. - CTM CHRONIC / STABLE ISSUES # Drug-induced Parkinsonism - Continuing reduced dose Sinemet as above # CAD # HTN - C/h statin # CKD - Trending Cr, currently at baseline # BPH - C/h tamsulosin # GERD - C/h pepcid CORE MEASURES - FEN: IVF PRN, replenish electrolytes, Diet Modified Texture; Pureed; Thin Liquids; Deliver To Nursing, Finger Foods/No Utensils, No Sharps, Safety Tray - PAML complete - Functional Status: Independent without use of assistive devices for ambulation - DVT prophylaxis: SC low molecular weight heparin - Access: None - Code: Full Code - Contact: brother Lr, Patient Contacts Name Legal Rel Relationship Phone Active Delvin Raymundo Brothmarisa - Disposition: -- Anticipated discharge to: nursing home facility -- Anticipated discharge date: t+2 -- Anticipated discharge barriers: Pending placement Extended Emergency Contact Information Primary Emergency Contact: Delvin Raymundo Mobile Relation: Brother Silver Solderer needed? No Karrie Starks MD Dept of Medicine Cosigned by Imelda Xie MD at 05/22/2025 8:39 AM EDT Associated attestation - Imelda Xie MD - 05/22/2025 8:39 AM EDT I have seen Mr. Raymundo, reviewed clinical data and the plan of care as outlined by Karrie Starks MD. I agree with the plan below except for the following adjustments: Mr. Raymundo: 69M hx Schizoaffective disorder c/b drug-induced parkinsonism, HTN p/w L facial droop with negative stroke workup c/f psychiatric decompensation awaiting psych bed No changes. Agree with plan below. I personally spent approximately 40 minutes on the care of this patient today including but not limited to reviewing medical history, interpreting data, patient interview and examination, communication with family, care coordination, and EPIC documentation. -- Imelda Watt??MD shelly, MBE Hospitalist, [facility] * Kymberly Mata MD - 05/20/2025 1:17 PM EDT Images from the original note were not included. [facility] PSYCHIATRIC CONSULTATION FOLLOW-UP NOTE INTERVAL HPI: Pt seen shortly after attempting to throw himself out of bed. He was treated with lorazepam IM and required 4pt soft restraints for safety. Nursing has observed him self-dialoguing and talking to his brother who is not in the room. He has made multiple suicidal statements and continues to express paranoia toward staff. On interview, Johnson reiterates that he does not trust us. He continues to be irritable and does not feel that life is worth living. He is annoyed when I asked him to repeat something he said that I didn't hear, stating that I knew what he said. He is no longer reading in the hospital. He does not tell me his name or identify the date or where he is. Similar to previous encounters, he stops answering questions. I am not able to elicit whether he is in pain, though nursing has observed him wincing with repositioning and he has h/o spinal surgery. REVIEW OF SYSTEMS: Limited by lack of engagement in interview EXAM: 05/20/2025 7:17 AM Vital Signs Temperature 97.7 ??F (36.5 ??C) Heart Rate 94 Respiration 20 SpO2 97 % Blood Pressure 143/85 Neurological: Motor: exam limited by restraints; no abnormal movements appreciated; tremor observed in UE on previous exams Cognitive: Wakefulness/alertness: awake and alert Orientation: does not respond to orientation questions Attention: Unable to assess Memory: unable to assess Mental Status: Appearance: appears stated age, unkempt, in hospital gown Behavior: limited eye contact, withdrawn, guarded, uncooperative Mood: not stated Affect: irritable, constricted range, stable Speech: reduced output, normal rate, soft volume Thought process: brief linear responses Thought content and perceptions: +paranoia, +hopelessness/SI Insight and judgment: poor/poor DATA: Last EKG ECG 12 lead Collection Time: 05/19/25 11:42 AM Result Value Ref Range Ventricular Heart Rate 101 BPM Atrial Heart Rate 101 BPM LA Interval 150 ms QRSD Interval 100 ms QT Interval 386 ms QTC Interval 500 ms P Mathews 35 degrees R Mathews -33 degrees T Wave Mathews 48 degrees Narrative Sinus tachycardia Left axis deviation Moderate voltage criteria for LVH, may be normal variant Abnormal ECG When compared with ECG of 11-May-2025 23:34, no significant change *Note: Due to a large number of results and/or encounters for the requested time period, some results have not been displayed. A complete set of results can be found in Results Review. MEDICATIONS: Scheduled Meds:Scheduled Medications[1] Continuous Infusions:Infusions Meds[2] PRN Meds:.PRN Medications[3] ASSESSMENT: Carter Raymundo is a 69 y.o. male with past psych history of schizoaffective disorder on clozapine,past medical history of hypertension, CKD, oropharyngeal dysphagia c/b frequent aspiration now s/p PEG, drug-induced Parkinsonism, who presented from nursing facility with altered mental status with unresponsiveness and aphasia, now medically cleared. Psychiatry initially consulted for assistance with diagnostic clarification, with initial differential ddx of catatonia vs delirium/encephalopathy vs decompensated psychosis. On evaluation today, pt continues to present with paranoia toward staff and limited cooperativity with interview. Hospital course remains complicated by episodes of agitation, most recently this afternoon when pt attempted to throw himself out of bed. Nursing has heard him make suicidal statements.On exam, he is irritable and remains paranoid. He is alert but does not participate in cognitive exam or ROS. There is a concern for back pain given signs of physical discomfort with repositioning per staff. Clinical impression concerning for acute psychosis in the setting of schizoaffective disorder, delirium and/or underlying neurocognitive disorder (not previously diagnosed per records, pt not currently participating in cognitive assessment). Today is presenting with low mood, suicidal thoughts and disorganized behavior. He is currently taking clozapine 175mg total daily dose, which he had been psychiatrically stable on for years prior to admission. We are holding bupropion to avoid exacerbatingpsychosis, which may be contributing to lower mood. Duloxetine was also held upon admission. Restarted depakote to target irritability. As he continues to present with significant paranoia associatedwith distress and impacting participation in care, recommend augmenting clozapine with haloperidol 1mg BID. Would defer increasing clozapine while bowel movements continue to be infrequent and irregular. We would also recommend discontinuing lorazepam given the risk of exacerbating delirium. Instead, would offer haloperidol 1mg BID PRN for mild to moderate agitation. Will monitor for worsening EPS and prolongation of Qtc on this regimen. The pt remains on section 12 and bed search is in processfor inpatient psychiatric care. We will continue to follow with you. DSM-5 DIAGNOSIS: Schizoaffective disorder R/o delirium R/o unspecified neurocognitive disorder RECOMMENDATIONS: -continue clozapine 25mg qAM + 150mg qHS -consider standing acetaminophen for pain -continue bowel regimen -continue depakote 250mg BID -start haloperidol 1mg BID to augment treatment for psychosis; will monitor for worsening EPS -discontinue lorazepam to reduce risk of worsening delirium -for mild/moderate agitation, offer haloperidol 1mg BID PRN -for acute agitation that does not respond to behavioral redirection, treat with 2mg IM -repeat EKG when able -continue trazodone 150mg qHS -continue ramelteon 8mg qHS -holding bupropion in setting of psychosis -continue section 12; pt may not leave AMA -continue 1:1 observer -appreciate CM facilitating ongoing bed search for inpatient level of care [1] atorvaSTATin, 20 mg, G-tube, QHS [Held by provider] buPROPion, 100 mg, G-tube, TID carbidopa-levodopa, 0.5 tablet, G-tube, TID cloZAPine, 150 mg, G-tube, QHS cloZAPine, 25 mg, G-tube, Daily divalproex, 250 mg, Oral, Q12H CLAUDIA enoxaparin, 40 mg, Subcutaneous, Q24H CLAUDIA famotidine, 20 mg, G-tube, BID gabapentin, 100 mg, G-tube, QAM gabapentin, 300 mg, G-tube, QHS haloperidoL, 1 mg, G-tube, BID lactulose, 20 g, Oral, TID lidocaine, 1 patch, Topical, Q24H magnesium citrate, 296 mL, Oral, Once multivitamin with minerals, 15 mL, Oral, Daily sodium chloride, 3 mL, Intravenous, Q12H CLAUDIA polyethylene glycol, 17 g, Oral, BID ramelteon, 8 mg, Oral, QHS sennosides, 17.6 mg, G-tube, BID tamsulosin, 0.4 mg, G-tube, QHS traZODone, 150 mg, G-tube, Nightly [2] [3] acetaminophen bisacodyl calcium carbonate guaiFENesin iohexoL LORazepam LORazepam LORazepam Insert and Maintain Peripheral IV AND sodium chloride AND sodium chloride * Karrie Starks MD - 05/20/2025 6:44 AM EDT Images from the original note were not included. [facility] Department of Medicine [facility] Medicine Progress Note Patient: Carter Raymundo Admission Date: 04/15/2025 Length of Stay: 34 PCP: Kilo Huynh Attending: Imelda Xie MD Chief Complaint: Altered mental status OVERNIGHT EVENTS NAEON SUBJECTIVE Calm early this morning. Says he ordered breakfast this AM. No acute concerns. Later in the AM, seen trying to climb out of bed by nursing. Agitated and screaming. Says he is being tortured. Says that the staff here killed his doctor that he saw for 40 years and he does not understand why. Calmer after receiving Ativan IM x 1. OBJECTIVE DATA VITALS T 98.6 ??F (37 ??C) HR (!) 100 BP 117/84 RR 18 SpO2 98 % O2 Device: None (Room air) 75.8 kg (167 lb 1.7 oz) Body mass index is 23.31 kg/m??. PHYSICAL EXAM GENERAL: NAD, resting in bed, appears calm. HEENT: No scleral icterus, moist mucous membranes. CARDIAC: Clinically well perfused. LUNG: Appears in no respiratory distress. No accessory muscle use. ABD: No abdominal abnormalities on inspection. MSK: No focal joint swelling or deformities. NEURO: Opens eyes to voice. Follows commands. SKIN: No significant rashes, sores or wounds noted on exposed skin. PSYCH: Calm. Paranoid. LABS, MICROBIOLOGY and STUDIES reviewed in Epic. ASSESSMENT & PLAN Carter Raymundo is a 69 y.o. male with a relevant past medical history of HTN, CKD, schizoaffectivedisorder, and drug-induced parkinsonism, who initially presented with unresponsiveness, asphaia, and possible left facial droop concerning for stroke versus TME, but with unremarkable workup. Admitted to medicine for monitoring and re-initiation of clozapine dosing, now medically stable pending inpatient psych placement for decompensated schizoaffective disorder. ACTIVE ISSUES # Brief episode of unresponsiveness # Schizoaffective disorder # Acute delirium Patient initially presenting with acute onset of unresponsiveness, aphasia, and concern for ?facialasymmetry. CTH w/o stroke. MRIb normal. Workup for toxic metabolic encephalopathy negative. Multiple EEGs with no evidence of seizures. During admission, has had multiple triggers called for unresponsiveness (not true catatonia per psych) with no clear trigger. Labs from triggers thus far have all been unremarkable. His ongoing presentation is likely secondary to acute delirium superimposed on known decompensated schizoaffective disorder that is persistent even with careful titration of his psychiatric medications. Cx - Per Neuro, no clear neurologic explanation for episodes of unresponsiveness - Psych following, appreciate recs Dx - CBC with diff largely stable during admission w/ normal ANC, recheck weekly Tx - Holding home buproprion 100mg TID for now per Psychiatry - Psych adjusting clozapine dosinmg qAM + 125mg qHS per Psychiatry. - Increased to depakote 250 mg BID per Psychiatry - Start standing haloperidol 1 mg BID to augment treatment for psychosis - Continue with lowered Sinemet dose in case is contributing to agitation and paranoia per patient's outpatient neurologist, Marilyn Raygoza MD - C/h trazodone 150mg qHs - Agitation: haloperidol 2 mg IM PRN. D/c'ed Ativan in case that is worsening delirium - Ramelteon 8 mg at bedtime - Per psych meets section 12 criteria, cannot leave AMA. Affirmation of HCP pending. - Patient is medically clear for psych bed placement, will encourage to work with PT and get out ofbed as able - Plan for weekly interdisciplinary meetings on Sunday 2pm #Constipation - resolved Severe stool burden on KUB while on clozapine. Repeat KUB 04/30 with rectal stool ball. Multiple large BM on 05/06 after mag citrate x 3, lactulose, suppository. - Bowel reg: scheduled Miralax, senna BID, lactulose - Mag citrate 05/19, 05/20 - Last BM 05/14 # Dysphagia with G tube reliance Patient with history of oropharyngeal dysphagia. Pulled out G tube 04/19 AM and again 05/11 overnight. - G tube replaced with IR 05/12 # Transient hypoxia # C/f aspiration pneumonitis Patient with history of oropharyngeal dysphagia with G tube in place. Brief episode of hypoxia on admission that resolved quickly, possible 2/2 aspiration. At the [facility], he is on a pureed diet. High risk for aspiration. 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 EKG's to date all consistent with sinus tachycardia. - CTM CHRONIC / STABLE ISSUES # Drug-induced Parkinsonism - Continuing reduced dose Sinemet as above # CAD # HTN - C/h statin # CKD - Trending Cr, currently at baseline # BPH - C/h tamsulosin # GERD - C/h pepcid CORE MEASURES - FEN: IVF PRN, replenish electrolytes, Diet Modified Texture; Pureed; Thin Liquids; Deliver To Nursing, Finger Foods/No Utensils, No Sharps, Safety Tray - PAML complete - Functional Status: Independent without use of assistive devices for ambulation - DVT prophylaxis: SC low molecular weight heparin - Access: None - Code: Full Code - Contact: brother Lr, Patient Contacts Name Legal Rel Relationship Phone Active Delvin Raymundo Brother - Disposition: -- Anticipated discharge to: nursing home facility -- Anticipated discharge date: t+2 -- Anticipated discharge barriers: Pending placement Extended Emergency Contact Information Primary Emergency Contact: Delvin Raymundo Mobile Relation: Brother Silver Solderer needed? No Karrie Starks MD Dept of Medicine Cosigned by Imelda Xie MD at 05/20/2025 5:26 PM EDT Associated attestation - Imelda Xie MD - 05/20/2025 5:26 PM EDT Images from the original note were not included. I have seen Mr. Raymundo, reviewed clinical data and the plan of care as outlined by Karrie Starks MD. I agree with the plan below except for the following adjustments: Mr. Raymundo: 69M hx Schizoaffective disorder c/b drug-induced parkinsonism, HTN p/w L facial droop with negative stroke workup c/f psychiatric decompensation awaiting psych bed Today with another outburst concerning for ongoing psychiatric disturbance. Psych provided some helpful recommendations. No active medical concerns. I personally spent approximately 40 minutes on the care of this patient today including but not limited to reviewing medical history, interpreting data, patient interview and examination, communication with family, care coordination, and EPIC documentation. -- Imelda Watt??MD shelly, MBE Hospitalist, [facility] * Kimani Rivas MD - 05/19/2025 9:33 AM EDT Images from the original note were not included. [facility] PSYCHIATRIC CONSULTATION FOLLOW-UP NOTE INTERVAL HPI: - Patient required Seroquel 50mg, Ativan 0.5mg overnight for agitation - Last BM ~4 days prior - Patient calm, cooperative with staff this morning - Staff reports patient agitation greatly improved after administration of Ativan yesterday On interview, patient declines to answer questions initially. He makes consistent eye contact and nods head yes and no, shrugs at times. He consents to physical exam, then reports pain in his right shoulder. When asked about his mood he becomes tearful. He eventually states that's enough and gestures for this physician underwriter to leave the room. REVIEW OF SYSTEMS: As per HPI EXAM: 05/18/2025 8:00 PM Vital Signs Temperature -- Heart Rate 120 Respiration 16 SpO2 -- Blood Pressure 120/84 Neurological: Motor: no abnormal movements or motor symptoms appreciated on physical exam including tremor, spasm, rigidity; spontaneous movements of all extremities b/l Cognitive: Wakefulness/alertness: awake and alert Orientation: unable to assess Attention: Unable to assess Memory: unable to assess Mental Status: Appearance: appears stated age, unkempt, in hospital gown Behavior: good eye contact, withdrawn, guarded, uncooperative Mood: ... Affect: tearful, constricted, stable Speech: minimal; normal rate/tone/volume Thought process: unable to assess Thought content and perceptions: general paranoia regarding staff, unable to assess SI/HI/AVH Insight and judgment: poor/poor MEDICATIONS: Scheduled Meds:Scheduled Medications[1] Continuous Infusions:Infusions Meds[2] PRN Meds:.PRN Medications[3] DATA: Reviewed. ASSESSMENT: Carter Raymundo is a 69 y.o. male with past psych history of schizoaffective disorder on clozapine,past medical history of hypertension, CKD, oropharyngeal dysphagia c/b frequent aspiration now s/p PEG, drug-induced Parkinsonism, who presented from nursing facility with altered mental status with unresponsiveness and aphasia, now medically cleared. Psychiatry initially consulted for assistance with diagnostic clarification, with initial differential ddx of catatonia vs delirium/encephalopathy vs decompensated psychosis. On evaluation today, patient presentation significant for tearful/distressed affect, ongoing paranoia, withdrawn behavior, intermittent agitation. He is currently adherent to his medication regimen. There has been lower concern for ongoing acute delirium as there has no clear infectious/toxic/metabolic process to explain symptoms, nor do they currently appear to be fluctuating, however he has required medication management for agitation overnight rather consistently which may be indicative of sundowning or related phenomenon. It is appreciated that he has been tachycardic with mild leukocytosis; may be reasonable to repeat medical work up as his hospital stay is prolonged. Have still been unable to reassess cognition and mental status due to limited patient participation and agitation; psychotic symptoms including paranoia, delusions, and disorganized behaviors are apparent per observation and staff reports. Plan to uptitrate depakote today to help manage patient irritability, intermittent agitation (historical med). Seroquel appears to be ineffective for managing agitation at this time, so will transition to offering Haldol as needed while monitoring QTc and potential to worsen EPS. Given worsening agitation has been distressing for both the patient and staff, it is reasonable to accept present risk to address this concern. Given cognition at this time is unclear, will attempt to limit polypharmacy and reduce gabapentin as well, use Ativan sparingly to only address acute agitation given its apparent efficacy. Patient presentation has been most consistent with delirium (resolved) superimposed on known schizoaffective disorder. Catatonia was deemed unlikely given isolated symptom of mutism, intermittent stupor without muscle rigidity/waxy flexibility, and also the limited effect of benzodiazepines on clinical course. Stroke work up negative. Multiple EEGs demonstrate no seizure, findings more consistentwith delirium but non-specific. Regarding psychiatric symptoms, appears paranoid, endorses delusions, previously endorsed passive SI, made verbal threats to staff, does not have known AVH. Holding bupropion, lowering Sinemet dose as able to facilitate decrease in agitation which appears primarily related to psychosis at this time. Most recent Qtc: 495 (05/11/25). Currently on previous home clozapine dose. Brother reports at baseline patient is relatively high-functioning, pleasant, not overtly paranoid. At this point, no concern for acute medical illness, and behavior seems primarily related to underlying schizoaffective disorder. Primary medical team has cleared patient for inpatient psychiatric bed placement. Interdisciplinary meeting held 05/15 to discuss patient's recent escalating behavior and dispo barriers. Will need to first address paranoia, agitation with clozapine uptitration, updated agitation recommendations as necessary. For dispo, patient will need to demonstrate improvement in mobility, cooperation with care. Plan for HCP affirmation court date on Sunday05/20/25. Patient on section 12 due to inability to care for self and acute risk of psychiatric decompensation, bed search in progress. DSM-5 DIAGNOSIS: Schizoaffective disorder Delirium, resolved RECOMMENDATIONS: #LEGAL Patient remains on section 12, cannot leave AMA, bed search in progress Continue 1:1 sitter #MANAGEMENT Note last Qtc: Qtc: 500 on 05/19 -Uri; consider repeat EKG q1-2 days as able for monitoring of QTc Continue delirium precautions --> Emphasize strong diurnal cues including windows open during day, limit disruptions overnight, practice avoidance of deliriogenic drugs as possible, mobilize throughout the day as possible, optimize nutrition, ensure normal regular bowel movements, and treat pain to the extent possible Consider repeating delirium work up as indicated given persistent tachycardia, leukocytosis with repeat CXR, UA, repeat metabolic panel Clozapine dosing: c/w 25mg qAM+150mg qHS Please increase depakote to 250mg PO BID Please repeat basic labs including LFTs while on depakote Please continue efforts to ensure bowel movement while on clozapine with consistent documentation bowel movements (Last BM: ~05/15) Please lower gabapentin dose to 100 mg qAM+300mg QHS Continue to hold Wellbutrin 100 mg TID Continue ramelteon 8 mg QHS Continue trazodone 150 mg QHS May continue lorazepam 0.5mg-1mg PO/IM PRN first line for mild-moderate anxiety, agitation (first line); insomnia; please wait at least 30 mins prior to administration of next dose; hold for concernsof sedation, confusion Please offer Haldol 1mg PO PRN for severe anxiety, agitation (second line) Please d/c Seroquel 50 mg PO TID PRN May give Haldol 2 mg IM and Benadryl 50 mg IM for agitation refractory to the above interventions, monitoring closely for EPS; may repeat same dose if no response in 30 mins; would re-engage psychiatry if requiring multiple doses Psychiatry will continue to follow Kimani Rivas MD PGY2, Department of Psychiatry Psychiatry Consultation-Liaison Service Case discussed with attending psychiatrist, Dr. Kymberly Mata. Please page [phone] overnight for any questions or concerns regarding acute psychiatric emergencies. [1] atorvaSTATin, 20 mg, G-tube, QHS [Held by provider] buPROPion, 100 mg, G-tube, TID carbidopa-levodopa, 1 tablet, G-tube, TID Followed by [START ON 05/20/2025] carbidopa-levodopa, 0.5 tablet, G-tube, TID cloZAPine, 150 mg, G-tube, QHS cloZAPine, 25 mg, G-tube, Daily divalproex, 125 mg, Oral, Q12H CLAUDIA enoxaparin, 40 mg, Subcutaneous, Q24H CLAUDIA famotidine, 20 mg, G-tube, BID gabapentin, 100 mg, G-tube, BID gabapentin, 300 mg, G-tube, QHS lactulose, 20 g, Oral, BID lidocaine, 1 patch, Topical, Q24H multivitamin with minerals, 15 mL, Oral, Daily sodium chloride, 3 mL, Intravenous, Q12H CLAUDIA polyethylene glycol, 17 g, Oral, BID ramelteon, 8 mg, Oral, QHS sennosides, 17.6 mg, G-tube, BID tamsulosin, 0.4 mg, G-tube, QHS traZODone, 150 mg, G-tube, Nightly [2] [3] acetaminophen bisacodyl calcium carbonate guaiFENesin iohexoL LORazepam LORazepam LORazepam Insert and Maintain Peripheral IV AND sodium chloride AND sodium chloride QUEtiapine * Karrie Starks MD - 05/19/2025 6:53 AM EDT Images from the original note were not included. [facility] Department of Medicine [facility] Medicine Progress Note Patient: Carter Raymundo Admission Date: 04/15/2025 Length of Stay: 33 PCP: Kilo Huynh Attending: Imelda Xie MD Chief Complaint: Altered mental status OVERNIGHT EVENTS NAEON SUBJECTIVE When asked how he is feeling this morning, tells me that he already told his nurse and if I want toknow more, I can go talk to her. OBJECTIVE DATA VITALS T (pt. refused) HR (!) 120 BP 120/84 RR 16 SpO2 (pt. refused) O2 Device: None (Room air) 75.8 kg (167 lb 1.7 oz) Body mass index is 23.31 kg/m??. PHYSICAL EXAM GENERAL: NAD, resting in bed, appears calm. HEENT: No scleral icterus, moist mucous membranes. CARDIAC: Clinically well perfused. LUNG: Appears in no respiratory distress. No accessory muscle use. ABD: No abdominal abnormalities on inspection. MSK: No focal joint swelling or deformities. NEURO: Opens eyes to voice. Follows commands. SKIN: No significant rashes, sores or wounds noted on exposed skin. PSYCH: Calm. Paranoid. LABS, MICROBIOLOGY and STUDIES reviewed in Epic. ASSESSMENT & PLAN Carter Raymundo is a 69 y.o. male with a relevant past medical history of HTN, CKD, schizoaffectivedisorder, and drug-induced parkinsonism, who initially presented with unresponsiveness, asphaia, and possible left facial droop concerning for stroke versus TME, but with unremarkable workup. Admitted to medicine for monitoring and re-initiation of clozapine dosing, now medically stable pending inpatient psych placement for decompensated schizoaffective disorder. ACTIVE ISSUES # Brief episode of unresponsiveness # Schizoaffective disorder # Acute delirium Patient initially presenting with acute onset of unresponsiveness, aphasia, and concern for ?facialasymmetry. CTH w/o stroke. MRIb normal. Workup for toxic metabolic encephalopathy negative. Multiple EEGs with no evidence of seizures. During admission, has had multiple triggers called for unresponsiveness (not true catatonia per psych) with no clear trigger. Labs from triggers thus far have all been unremarkable. His ongoing presentation is likely secondary to acute delirium superimposed on known decompensated schizoaffective disorder. Cx - Per Neuro, no clear neurologic explanation for episodes of unresponsiveness - Psych following, appreciate recs Dx - CBC with diff largely stable during admission w/ normal ANC, recheck weekly Tx - Holding home buproprion 100mg TID for now per Psychiatry - Psych adjusting clozapine dosinmg qAM + 125mg qHS per Psychiatry. - Start depakote 125 mg BID per Psychiatry - Continue with lowered Sinemet dose in case is contributing to agitation and paranoia per patient's outpatient neurologist, Marilyn Raygoza MD - C/h trazodone 150mg qHs - Agitation PRNs: seroquel 50mg TID PRN (1st line), then 0.5mg PO/IV/IM ativan (2nd line) - Ramelteon 8 mg at bedtime - Per psych meets section 12 criteria, cannot leave AMA. Affirmation of HCP pending. - Patient is medically clear for psych bed placement, will encourage to work with PT and get out ofbed as able - Plan for weekly interdisciplinary meetings on Sunday 2pm #Constipation - resolved Severe stool burden on KUB while on clozapine. Repeat KUB 04/30 with rectal stool ball. Multiple large BM on 05/06 after mag citrate x 3, lactulose, suppository. - Bowel reg: scheduled Miralax, senna BID, lactulose - Mag citrate 05/19 - Last BM 05/14 # Dysphagia with G tube reliance Patient with history of oropharyngeal dysphagia. Pulled out G tube 04/19 AM and again 05/11 overnight. - G tube replaced with IR 05/12 # Transient hypoxia # C/f aspiration pneumonitis Patient with history of oropharyngeal dysphagia with G tube in place. Brief episode of hypoxia on admission that resolved quickly, possible 2/2 aspiration. At the [facility], he is on a pureed diet. High risk for aspiration. 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 EKG's to date all consistent with sinus tachycardia. - CTM CHRONIC / STABLE ISSUES # Drug-induced Parkinsonism - Continuing reduced dose Sinemet as above # CAD # HTN - C/h statin # CKD - Trending Cr, currently at baseline # BPH - C/h tamsulosin # GERD - C/h pepcid CORE MEASURES - FEN: IVF PRN, replenish electrolytes, Diet Modified Texture; Pureed; Thin Liquids; Deliver To Nursing, Finger Foods/No Utensils, No Sharps, Safety Tray - PAML complete - Functional Status: Independent without use of assistive devices for ambulation - DVT prophylaxis: SC low molecular weight heparin - Access: None - Code: Full Code - Contact: brother Lr, Patient Contacts Name Legal Rel Relationship Phone Active Delvin Raymundo Brothmarisa - Disposition: -- Anticipated discharge to: nursing home facility -- Anticipated discharge date: t+2 -- Anticipated discharge barriers: Pending placement Extended Emergency Contact Information Primary Emergency Contact: Delvin Raymundo Mobile Relation: Brother Silver Solderer needed? No Karrie Starks MD Dept of Medicine Cosigned by Imelda Xie MD at 05/19/2025 1:27 PM EDT Associated attestation - Imelda Xie MD - 05/19/2025 1:27 PM EDT Images from the original note were not included. I have seen Mr. Raymundo, reviewed clinical data and the plan of care as outlined by Karrie Starks MD. I agree with the plan below except for the following adjustments: Mr. Raymundo: 69M hx Schizoaffective disorder c/b drug-induced parkinsonism, HTN p/w L facial droop with negative stroke workup c/f psychiatric decompensation awaiting psych bed Agree with plan below. Not concerned about leukocytosis as has been stable and has no localizing sxs. CTM. I personally spent approximately 40 minutes on the care of this patient today including but not limited to reviewing medical history, interpreting data, patient interview and examination, communication with family, care coordination, and EPIC documentation. -- Imelda Watt??MD shelly, MBE Hospitalist, [facility] * Kimani Rivas MD - 05/18/2025 1:48 PM EDT Images from the original note were not included. [facility] PSYCHIATRIC CONSULTATION FOLLOW-UP NOTE INTERVAL HPI: - Patient required Ativan 1mg PO overnight for agitation - Last BM ~3 days prior - Patient calm, cooperative with staff this morning Patient recognizes and acknowledges this physician underwriter on interview. He denies any concerns and requests for this physician underwriter to shake his hand. On near approach with hand the patient grabs this physician underwriter's hand and pulls in, holds tightly despite requests to release. Following this interaction, patient apologizes and states he did not mean harm. He requests an additional hand shake which is declined. He expresses frustration and states he has nothing further to discuss at this time. He closes his eyes upon further questioning. REVIEW OF SYSTEMS: As per HPI EXAM: 05/18/2025 8:13 AM Vital Signs Temperature 97.8 ??F (36.6 ??C) Heart Rate 96 Respiration 18 SpO2 97 % Blood Pressure 98/64 Neurological: Motor: mild tremor appreciated in hands b/l, spontaneous movements of all extremities b/l Cognitive: Wakefulness/alertness: awake and alert Orientation: unable to assess Attention: Unable to assess Memory: unable to assess Mental Status: Appearance: appears stated age, unkempt, in hospital gown Behavior: good eye contact, guarded, uncooperative Mood: ... Affect: blunted, stable, irritable Speech: normal rate/tone/volume Thought process: linear Thought content and perceptions: general paranoia regarding staff, unable to assess SI/HI/AVH Insight and judgment: poor/poor MEDICATIONS: Scheduled Meds:Scheduled Medications[1] Continuous Infusions:Infusions Meds[2] PRN Meds:.PRN Medications[3] DATA: Reviewed. Qtc: 495 on 05/11. ASSESSMENT: Carter Raymundo is a 69 y.o. male with past psych history of schizoaffective disorder on clozapine,past medical history of hypertension, CKD, oropharyngeal dysphagia c/b frequent aspiration now s/p PEG, drug-induced Parkinsonism, who presented from nursing facility with altered mental status with unresponsiveness and aphasia, now medically cleared. Psychiatry initially consulted for assistance with diagnostic clarification, with initial differential ddx of catatonia vs delirium/encephalopathy vs decompensated psychosis. On evaluation today, patient presentation significant for ongoing paranoia, intermittent agitation.He is currently adherent to his medication regimen. There is lower concern for ongoing acute delirium as there is no clear infectious/toxic/metabolic process to explain symptoms, nor do they currently appear to be fluctuating, however he has required medication management for agitation overnight rather consistently which may be indicative of sundowning or related phenomenon. Have been unable to reassess cognition and mental status due to limited patient participation and agitation; psychotic symptoms including paranoia, delusions, and disorganized behaviors are apparent. Plan to initiate depakote today to help manage patient irritability, intermittent agitation (historical med). Patient presentation has been most consistent with delirium (resolved) superimposed on known schizoaffective disorder. Catatonia was deemed unlikely given isolated symptom of mutism, intermittent stupor without muscle rigidity/waxy flexibility, and also the limited effect of benzodiazepines on clinical course. Stroke work up negative. Multiple EEGs demonstrate no seizure, findings more consistentwith delirium but non-specific. Regarding psychiatric symptoms, appears paranoid, endorses delusions, previously endorsed passive SI, made verbal threats to staff, does not have known AVH. Holding bupropion, lowering Sinemet dose as able to facilitate decrease in agitation which appears primarily related to psychosis at this time. Most recent Qtc: 495 (05/11/25). Currently on previous home clozapine dose. Brother reports at baseline patient is relatively high-functioning, pleasant, not overtly paranoid. At this point, no concern for acute medical illness, and behavior seems primarily related to underlying schizoaffective disorder. Primary medical team has cleared patient for inpatient psychiatric bed placement. Interdisciplinary meeting held 05/15 to discuss patient's recent escalating behavior and dispo barriers. Will need to first address paranoia, agitation with clozapine uptitration, updated agitation recommendations as necessary. For dispo, patient will need to demonstrate improvement in mobility, cooperation with care. Plan for HCP affirmation court date on Sunday05/20/25. Patient on section 12 due to inability to care for self and acute risk of psychiatric decompensation, bed search in progress. DSM-5 DIAGNOSIS: Schizoaffective disorder Delirium, resolved RECOMMENDATIONS: #LEGAL Patient remains on section 12, cannot leave AMA, bed search in progress Continue 1:1 sitter #MANAGEMENT Note last Qtc: Qtc: 495 on 05/11 -Uri; consider repeat EKG q1-2 days as able for monitoring of QTc Continue delirium precautions --> Emphasize strong diurnal cues including windows open during day, limit disruptions overnight, practice avoidance of deliriogenic drugs as possible, mobilize throughout the day as possible, optimize nutrition, ensure normal regular bowel movements, and treat pain to the extent possible Clozapine dosing: c/w 25mg qAM+150mg qHS Please start depakote 125mg PO BID Please continue efforts to ensure bowel movement while on clozapine (Last BM: ~05/15) Continue to hold Wellbutrin 100 mg TID Continue gabapentin 100 mg BID Continue ramelteon 8 mg QHS Continue trazodone 150 mg QHS Can continue to offer Seroquel 50 mg PO TID PRN for mild-moderate anxiety, insomnia (first line) Can continue lorazepam 0.5mg-1mg IV/IM PRN first line for severe anxiety, agitation (first line); insomnia (second line); please wait at least 30 mins prior to administration of next dose; hold for sedation, confusion May also give Haldol 2 mg IM and Benadryl 50 mg IM for refractory agitation (second line), monitoring closely for EPS; may repeat same dose if no response in 30 mins Psychiatry will continue to follow Kimani Rivas MD PGY2, Department of Psychiatry Psychiatry Consultation-Liaison Service Case staffed with attending psychiatrist, Dr. Kymberly Mata Please page [phone] overnight for any questions or concerns regarding acute psychiatric emergencies. [1] atorvaSTATin, 20 mg, G-tube, QHS [Held by provider] buPROPion, 100 mg, G-tube, TID carbidopa-levodopa, 1 tablet, G-tube, TID Followed by [START ON 05/20/2025] carbidopa-levodopa, 0.5 tablet, G-tube, TID cloZAPine, 150 mg, G-tube, QHS cloZAPine, 25 mg, G-tube, Daily enoxaparin, 40 mg, Subcutaneous, Q24H CLAUDAI famotidine, 20 mg, G-tube, BID gabapentin, 100 mg, G-tube, BID gabapentin, 300 mg, G-tube, QHS lactulose, 20 g, Oral, BID lidocaine, 1 patch, Topical, Q24H multivitamin with minerals, 15 mL, Oral, Daily sodium chloride, 3 mL, Intravenous, Q12H CLAUDIA polyethylene glycol, 17 g, Oral, BID ramelteon, 8 mg, Oral, QHS sennosides, 17.6 mg, G-tube, BID tamsulosin, 0.4 mg, G-tube, QHS traZODone, 150 mg, G-tube, Nightly [2] [3] acetaminophen bisacodyl calcium carbonate guaiFENesin iohexoL LORazepam LORazepam LORazepam Insert and Maintain Peripheral IV AND sodium chloride AND sodium chloride QUEtiapine Cosigned by Kymberly Mata MD at 05/18/2025 10:22 PM EDT Associated attestation - Kymberly Mata MD - 05/18/2025 10:22 PM EDT I was present with the resident during the evans portions of the service. I discussed the case with the resident and agree with the findings and plan as documented in the resident's note with the following addendum: Pt lying in bed with eyes closed self-dialoguing upon approach. He is irritable upon interview, making negative comments and repeatedly asking me to leave. Clinical impression c/w schizoaffective disorder, r/o delirium, r/o underlying neurocognitive disorder. Pt is not participating in cognitive evaluation today. Recommend continuing clozapine 25mg + 150mg qHS with bowel regimen, discontinuing lorazepam due to risk of worsening delirium, starting depakote 125mg BID for mood/irritability. Continue section 12 and bed search ongoing for inpatient level of care. We will continue to follow with you. * Nicole Ramirez - 05/18/2025 8:43 AM EDT NUTRITION FOLLOW UP NOTE SUBJECTIVE: Tube feeds infusing at goal. OBJECTIVE: Height: 71 in Admit weight: 97.3 kg (bed, 04/16) Most recent weight: 75.8 kg (bed, 04/17) Current weight: No updated weights. Pertinent Meds: famotidine, lactulose, liquid multivitamin w/ minerals, senna, lorazepam. Others noted. Recent Labs 05/16/25 1226 POCGLU 127* Food Allergies: NKFA Diet Order: Pureed diet, thin liquids Tube Feed Order: Jevity 1.5 @ 60 mL/hr x24 hrs (provides: 2160 kcal, 92 g protein, 1094 mL free water). With 150 mL flushes q4h (+900 mL). Total 1994 mL free water/day. Access Type: G-tube (replaced 05/12). GI/Abdomen: Abdomen soft, non-tender, non-distended per flowsheets. LBM 05/15/25. Skin: Irritant dermatitis to sacrum, no pressure injuries noted. Drains: None. Extremities: No LE edema noted. Nutrition Focused Physical Exam: Deferred. ASSESSMENT: Estimated Nutrition Needs: Calories: 6655-9227 kcal (25-30 kcal/kg) Protein: 85-106 g (1.2-1.5 g/kg) Fluids: 9350-8813 mL (25-30 mL/kg) Estimated Needs Calculated Usin.9 kg (156 lb 4.9 oz) (weight at rehab) Specifics: 69M w/ PMHx significant for HTN, CKD, schizoaffective disorder, and drug-induced parkinsonism. Presented to [facility] on 04/15/25 w/ unresponsiveness, asphaia, & possible left facial droop concerning for stroke versus TME. Admitted to medicine for monitoring and re-initiation of clozapine dosing, now medically stable pending inpatient psych placement for decompensated schizoaffective disorder. S/pG-tube replacement (04/20/25 & 05/11/25). Nutrition following for tube feed management. Since last RD assessment (x6 days), patient switched to less-concentrated tube feed regimen (05/12/25) to provide more free water. New regimen started 05/12/25 & advanced to goal 05/13/25, rate decreased 05/16 ?unclear why, now back at goal. Tolerating new formula well from GI standpoint & no longer w/ constipation. Recommend cycling tube feeds as below to allow time hooked off of pump. No updated weights, obtain zeroed bed- scale weight as able.Labs checked intermittently/as patient allows iso severe aggression/agitation, most recently check 05/14/25 & WNL. Nutrition to follow. Interventions / Recommendations: Continue current diet as ordered, encourage any PO intake. Cycle tube feeds: Jevity 1.5 @ 85 mL/hr x16 hrs (provides: 2040 kcals, 87g protein & 1034 mL free water). +150 mL free water flushes q4h (+900 mL). Total free water: 1934 mL total H2o/day. Monitor lytes intermittently/as able, address PRN. Monitor I's/O's, GI function, & BMs daily. Obtain new weight as able. Continue multivitamin w/ minerals. Nutrition to continue to follow, please message or page [phone] with any questions/concerns Signed by: Nicole Ramirez, MS, RD, LDN 05/18/25 8:43 AM * Karrie Starks MD - 05/18/2025 6:56 AM EDT Images from the original note were not included. [facility] Department of Medicine [facility] Medicine Progress Note Patient: Carter Raymundo Admission Date: 04/15/2025 Length of Stay: 32 PCP: Kilo Huynh Attending: Mohinder Johnson MD Chief Complaint: Altered mental status OVERNIGHT EVENTS JULIA GARZA Says he feels not too bad this AM. Asking why he is in wrist restraints and wondering if we can take them off. Explained to him that the restraints were to prevent him from pulling out his G tube. He says he is not violent. Would like orange juice and chocolate ice cream. OBJECTIVE DATA VITALS T 97.9 ??F (36.6 ??C) HR (!) 104 BP 137/88 RR 18 SpO2 96 % O2 Device: None (Room air) 75.8 kg (167 lb 1.7 oz) Body mass index is 23.31 kg/m??. PHYSICAL EXAM GENERAL: NAD, resting in bed. HEENT: No scleral icterus, moist mucous membranes. CARDIAC: Clinically well perfused. LUNG: Appears in no respiratory distress. No accessory muscle use. ABD: No abdominal abnormalities on inspection. MSK: No focal joint swelling or deformities. NEURO: Opens eyes to voice. Follows commands. SKIN: No significant rashes, sores or wounds noted on exposed skin. PSYCH: Calm. Paranoid. LABS, MICROBIOLOGY and STUDIES reviewed in Epic. ASSESSMENT & PLAN Carter Raymundo is a 69 y.o. male with a relevant past medical history of HTN, CKD, schizoaffectivedisorder, and drug-induced parkinsonism, who initially presented with unresponsiveness, asphaia, and possible left facial droop concerning for stroke versus TME, but with unremarkable workup. Admitted to medicine for monitoring and re-initiation of clozapine dosing, now medically stable pending inpatient psych placement for decompensated schizoaffective disorder. ACTIVE ISSUES # Brief episode of unresponsiveness # Schizoaffective disorder # Acute delirium Patient initially presenting with acute onset of unresponsiveness, aphasia, and concern for ?facialasymmetry. CTH w/o stroke. MRIb normal. Workup for toxic metabolic encephalopathy negative. Multiple EEGs with no evidence of seizures. During admission, has had multiple triggers called for unresponsiveness (not true catatonia per psych) with no clear trigger. Labs from triggers thus far have all been unremarkable. His ongoing presentation is likely secondary to acute delirium superimposed on known decompensated schizoaffective disorder. Cx - Per Neuro, no clear neurologic explanation for episodes of unresponsiveness - Psych following, appreciate recs Dx - CBC with diff largely stable during admission w/ normal ANC, recheck weekly Tx - Holding home buproprion 100mg TID for now per Psychiatry - Psych adjusting clozapine dosinmg qAM + 125mg qHS per Psychiatry. - Continue with lowered Sinemet dose in case is contributing to agitation and paranoia per patient's outpatient neurologist, Marilyn Raygoza MD - C/h trazodone 150mg qHs - Agitation PRNs: seroquel 50mg TID PRN (1st line), then 0.5mg PO/IV/IM ativan (2nd line) - Ramelteon 8 mg at bedtime - Per psych meets section 12 criteria, cannot leave AMA. Affirmation of HCP pending. - Patient is medically clear for psych bed placement, will encourage to work with PT and get out ofbed as able - Plan for weekly interdisciplinary meetings on Sunday 2pm #Constipation - resolved Severe stool burden on KUB while on clozapine. Repeat KUB 04/30 with rectal stool ball. Multiple large BM on 05/06 after mag citrate x 3, lactulose, suppository. - Bowel reg: scheduled Miralax, senna BID - Received mag citrate 05/13, 05/14 with large BM # Dysphagia with G tube reliance Patient with history of oropharyngeal dysphagia. Pulled out G tube 04/19 AM and again 05/11 overnight. - G tube replaced with IR 05/12 # Transient hypoxia # C/f aspiration pneumonitis Patient with history of oropharyngeal dysphagia with G tube in place. Brief episode of hypoxia on admission that resolved quickly, possible 2/2 aspiration. At the [facility], he is on a pureed diet. High risk for aspiration. 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 EKG's to date all consistent with sinus tachycardia. - CTM CHRONIC / STABLE ISSUES # Drug-induced Parkinsonism - Continuing reduced dose Sinemet as above # CAD # HTN - C/h statin # CKD - Trending Cr, currently at baseline # BPH - C/h tamsulosin # GERD - C/h pepcid CORE MEASURES - FEN: IVF PRN, replenish electrolytes, Diet Modified Texture; Pureed; Thin Liquids; Deliver To Nursing, Finger Foods/No Utensils, No Sharps, Safety Tray - PAML complete - Functional Status: Independent without use of assistive devices for ambulation - DVT prophylaxis: SC low molecular weight heparin - Access: None - Code: Full Code - Contact: brother Lr, Patient Contacts Name Legal Rel Relationship Phone Active Delvin Raymundo Brothmarisa - Disposition: -- Anticipated discharge to: nursing home facility -- Anticipated discharge date: t+2 -- Anticipated discharge barriers: Pending placement Extended Emergency Contact Information Primary Emergency Contact: Delvin Raymundo Mobile Relation: Brother Silver Solderer needed? No Karrie Starks MD Dept of Medicine Cosigned by Imelda Xie MD at 05/18/2025 6:19 PM EDT Associated attestation - Imelda Xie MD - 05/18/2025 6:19 PM EDT I have seen Mr. Raymundo, reviewed clinical data and the plan of care as outlined by Karrie Starks MD. I agree with the plan below except for the following adjustments: Mr. Raymundo: 69M hx Schizoaffective disorder c/b drug-induced parkinsonism, HTN p/w L facial droop with negative stroke workup c/f psychiatric decompensation awaiting psych bed No new concerns. Agree with plan below. I personally spent approximately 40 minutes on the care of this patient today including but not limited to reviewing medical history, interpreting data, patient interview and examination, communication with family, care coordination, and EPIC documentation. -- Imelda Watt??MD shelly, MBE Hospitalist, [facility] * Agustín Vazquez MD - 05/17/2025 3:59 PM EDT Images from the original note were not included. [facility] Department of Medicine [facility] Medicine Progress Note Patient: Carter Raymundo Admission Date: 04/15/2025 Length of Stay: 31 PCP: Kilo Huynh Attending: Mohinder Johnson MD Chief Complaint: Altered mental status OVERNIGHT EVENTS Patient was more agitated this AM asking to call 911 to go to the hospital, calm after prn seroquel SUBJECTIVE Patient is comfortable this AM. He has no acute complaints. He is mostly tangential saying wouldn't you like to know whenever I ask him questions. OBJECTIVE DATA VITALS T 97.9 ??F (36.6 ??C) HR (!) 104 BP 137/88 RR 18 SpO2 96 % O2 Device: None (Room air) 75.8 kg (167 lb 1.7 oz) Body mass index is 23.31 kg/m??. PHYSICAL EXAM GENERAL: NAD, resting in bed. HEENT: No scleral icterus, moist mucous membranes. CARDIAC: Clinically well perfused. LUNG: Appears in no respiratory distress. No accessory muscle use. ABD: No abdominal abnormalities on inspection. MSK: No focal joint swelling or deformities. NEURO: Opens eyes to voice. Follows commands. SKIN: No significant rashes, sores or wounds noted on exposed skin. PSYCH: Calm. Paranoid. LABS, MICROBIOLOGY and STUDIES reviewed in Epic. ASSESSMENT & PLAN Carter Raymundo is a 69 y.o. male with a relevant past medical history of HTN, CKD, schizoaffectivedisorder, and drug-induced parkinsonism, who initially presented with unresponsiveness, asphaia, and possible left facial droop concerning for stroke versus TME, but with unremarkable workup. Admitted to medicine for monitoring and re-initiation of clozapine dosing, now medically stable pending inpatient psych placement for decompensated schizoaffective disorder. ACTIVE ISSUES # Brief episode of unresponsiveness # Schizoaffective disorder # Acute delirium Patient initially presenting with acute onset of unresponsiveness, aphasia, and concern for ?facialasymmetry. CTH w/o stroke. MRIb normal. Workup for toxic metabolic encephalopathy negative. Multiple EEGs with no evidence of seizures. During admission, has had multiple triggers called for unresponsiveness (not true catatonia per psych) with no clear trigger. Labs from triggers thus far have all been unremarkable. His ongoing presentation is likely secondary to acute delirium superimposed on known decompensated schizoaffective disorder. Cx - Per Neuro, no clear neurologic explanation for episodes of unresponsiveness - Psych following, appreciate recs Dx - CBC with diff largely stable during admission w/ normal ANC, recheck weekly Tx - Holding home buproprion 100mg TID for now per Psychiatry - Psych adjusting clozapine dosinmg qAM + 125mg qHS per Psychiatry. - Continue with lowered Sinemet dose in case is contributing to agitation and paranoia per patient's outpatient neurologist, Marilyn Raygoza MD - C/h trazodone 150mg qHs - Agitation PRNs: seroquel 50mg TID PRN (1st line), then 0.5mg PO/IV/IM ativan (2nd line) - Ramelteon 8 mg at bedtime - Per psych meets section 12 criteria, cannot leave AMA. Affirmation of HCP pending. - Patient is medically clear for psych bed placement, will encourage to work with PT and get out ofbed as able - Plan for weekly interdisciplinary meetings on Sunday 2pm #Constipation - resolved Severe stool burden on KUB while on clozapine. Repeat KUB 04/30 with rectal stool ball. Multiple large BM on 05/06 after mag citrate x 3, lactulose, suppository. - Bowel reg: scheduled Miralax, senna BID - Received mag citrate 05/13, 05/14 with large BM #Leukocytosis - resolving Repeat CXR 05/07 with resolution of opacification. Labs with downtrending white count. Anticipate his rise was secondary to agitation. Negative RVP. # Dysphagia with G tube reliance Patient with history of oropharyngeal dysphagia. Pulled out G tube 04/19 AM and again 05/11 overnight. - G tube replaced with IR 05/12 # Transient hypoxia # C/f aspiration pneumonitis Patient with history of oropharyngeal dysphagia with G tube in place. Brief episode of hypoxia on admission that resolved quickly, possible 2/2 aspiration. At the [facility], he is on a pureed diet. High risk for aspiration. 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 EKG's to date all consistent with sinus tachycardia. - CTM CHRONIC / STABLE ISSUES # Drug-induced Parkinsonism - Continuing reduced dose Sinemet as above # CAD # HTN - C/h statin # CKD - Trending Cr, currently at baseline # BPH - C/h tamsulosin # GERD - C/h pepcid CORE MEASURES - FEN: IVF PRN, replenish electrolytes, Diet Modified Texture; Pureed; Thin Liquids; Deliver To Nursing, Finger Foods/No Utensils, No Sharps, Safety Tray - PAML complete - Functional Status: Independent without use of assistive devices for ambulation - DVT prophylaxis: SC low molecular weight heparin - Access: peripheral IV x1 - Code: Full Code - Contact: brother Lr, Patient Contacts Name Legal Rel Relationship Phone Active Delvin Raymundo Brothmarisa - Disposition: -- Anticipated discharge to: [facility] -- Anticipated discharge date: TBD -- Anticipated discharge barriers: Pending placement Extended Emergency Contact Information Primary Emergency Contact: Delvin Raymundo Mobile Relation: Brother Silver Solderer needed? No Agustín Vazquez MD Dept of Medicine Cosigned by Mohinder Johnson MD at 05/17/2025 8:42 PM EDT Associated attestation - Mohinder Johnson MD - 05/17/2025 8:42 PM EDT I have seen and examined Mr. Raymundo, reviewed the findings and plan of care as documented by Agustín Vazquez MD and agree, except for any additional comments below. Adherent to his clozapine in recent days, continues to decline lovenox and most bowel meds most days. Will need a repeat EKG for QT monitoring soon, and would consider low dose DOAC for DVT ppx if heis amenable. Planning to continue weekly multidisciplinary meetings with psychiatry and nursing staff while awaiting cheli-psych placement. Mohinder Johnson MD Section of Hospital Medicine [facility] * Karrie Starks MD - 05/16/2025 6:48 AM EDT Images from the original note were not included. [facility] Department of Medicine [facility] Medicine Progress Note Patient: Carter Raymundo Admission Date: 04/15/2025 Length of Stay: 30 PCP: Kilo Huynh Attending: Mohinder Johnson MD Chief Complaint: Altered mental status OVERNIGHT EVENTS NAEON SUBJECTIVE Opens eyes to voice and tracks but not responding to questions this AM. OBJECTIVE DATA VITALS T 98.5 ??F (36.9 ??C) HR (!) 98 BP 138/85 RR 16 SpO2 97 % O2 Device: None (Room air) 75.8 kg (167 lb 1.7 oz) Body mass index is 23.31 kg/m??. PHYSICAL EXAM GENERAL: NAD, resting in bed. HEENT: No scleral icterus, moist mucous membranes. CARDIAC: Clinically well perfused. LUNG: Appears in no respiratory distress. No accessory muscle use. ABD: No abdominal abnormalities on inspection. MSK: No focal joint swelling or deformities. NEURO: Opens eyes to voice. Follows commands. SKIN: No significant rashes, sores or wounds noted on exposed skin. PSYCH: Calm. Paranoid. LABS, MICROBIOLOGY and STUDIES reviewed in Epic. ASSESSMENT & PLAN Carter Raymundo is a 69 y.o. male with a relevant past medical history of HTN, CKD, schizoaffectivedisorder, and drug-induced parkinsonism, who initially presented with unresponsiveness, asphaia, and possible left facial droop concerning for stroke versus TME, but with unremarkable workup. Admitted to medicine for monitoring and re-initiation of clozapine dosing, now medically stable pending inpatient psych placement for decompensated schizoaffective disorder. ACTIVE ISSUES # Brief episode of unresponsiveness # Schizoaffective disorder # Acute delirium Patient initially presenting with acute onset of unresponsiveness, aphasia, and concern for ?facialasymmetry. CTH w/o stroke. MRIb normal. Workup for toxic metabolic encephalopathy negative. Multiple EEGs with no evidence of seizures. During admission, has had multiple triggers called for unresponsiveness (not true catatonia per psych) with no clear trigger. Labs from triggers thus far have all been unremarkable. His ongoing presentation is likely secondary to acute delirium superimposed on known decompensated schizoaffective disorder. Cx - Per Neuro, no clear neurologic explanation for episodes of unresponsiveness - Psych following, appreciate recs Dx - CBC with diff largely stable during admission w/ normal ANC, recheck weekly Tx - Holding home buproprion 100mg TID for now per Psychiatry - Psych adjusting clozapine dosinmg qAM + 125mg qHS per Psychiatry. - Continue with lowered Sinemet dose in case is contributing to agitation and paranoia per patient's outpatient neurologist, Marilyn Raygoza MD - C/h trazodone 150mg qHs - Agitation PRNs: seroquel 50mg TID PRN (1st line), then 0.5mg PO/IV/IM ativan (2nd line) - Ramelteon 8 mg at bedtime - Per psych meets section 12 criteria, cannot leave AMA. Affirmation of HCP pending. - Patient is medically clear for psych bed placement, will encourage to work with PT and get out ofbed as able - Plan for weekly interdisciplinary meetings on Sunday 2pm #Constipation - resolved Severe stool burden on KUB while on clozapine. Repeat KUB 04/30 with rectal stool ball. Multiple large BM on 05/06 after mag citrate x 3, lactulose, suppository. - Bowel reg: scheduled Miralax, senna BID - Received mag citrate 05/13, 05/14 with large BM #Leukocytosis - resolving Repeat CXR 05/07 with resolution of opacification. Labs with downtrending white count. Anticipate his rise was secondary to agitation. Negative RVP. # Dysphagia with G tube reliance Patient with history of oropharyngeal dysphagia. Pulled out G tube 04/19 AM and again 05/11 overnight. - G tube replaced with IR 05/12 # Transient hypoxia # C/f aspiration pneumonitis Patient with history of oropharyngeal dysphagia with G tube in place. Brief episode of hypoxia on admission that resolved quickly, possible 2/2 aspiration. At the [facility], he is on a pureed diet. High risk for aspiration. 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 EKG's to date all consistent with sinus tachycardia. - CTM CHRONIC / STABLE ISSUES # Drug-induced Parkinsonism - Continuing reduced dose Sinemet as above # CAD # HTN - C/h statin # CKD - Trending Cr, currently at baseline # BPH - C/h tamsulosin # GERD - C/h pepcid CORE MEASURES - FEN: IVF PRN, replenish electrolytes, Diet Modified Texture; Pureed; Thin Liquids; Deliver To Nursing, Finger Foods/No Utensils, No Sharps, Safety Tray - PAML complete - Functional Status: Independent without use of assistive devices for ambulation - DVT prophylaxis: SC low molecular weight heparin - Access: peripheral IV x1 - Code: Full Code - Contact: brother Lr, Patient Contacts Name Legal Rel Relationship Phone Active Delvin Raymundo Brothmarisa - Disposition: -- Anticipated discharge to: nursing home facility -- Anticipated discharge date: t+2 -- Anticipated discharge barriers: Pending placement Extended Emergency Contact Information Primary Emergency Contact: Delvin Raymundo Mobile Relation: Brother Silver Solderer needed? No Karrie Starks MD Dept of Medicine Cosigned by Mohindre Johnson MD at 05/16/2025 9:15 PM EDT Associated attestation - Mohinder Johnson MD - 05/16/2025 9:15 PM EDT I have seen and examined Mr. Raymundo, reviewed the findings and plan of care as documented by Karrie Starks MD and agree, except for any additional comments below. Spoke with patient today, who remained paranoid, initially expressing concern I was not really a doctor, but later acknowledging that I was a doctor but was not truly understanding what he was experiencing, and that I needed to call 911 to get an outside doctor to come help. No significant changes to medical plan today. Mohinder Johnson MD Section of Hospital Medicine [facility] * Kimani Rivas MD - 05/15/2025 3:11 PM EDT Images from the original note were not included. [facility] PSYCHIATRIC CONSULTATION FOLLOW-UP NOTE INTERVAL HPI: -patient exhibiting ongoing agitation and disorganized behavior requiring multiple doses of Ativan Patient is seen in soft wrist restraints, engaging with PCT, drinking cranberry juice prior to interview. Patient reports this physician underwriter is his daily nightmare . He expresses frustration, uses racial slur. He reports ongoing left shoulder pain and states that this physician underwriter cannot help him. He states hewants to get out of here , later expresses he believes he will here. REVIEW OF SYSTEMS: As per HPI EXAM: 05/15/2025 11:52 AM Vital Signs Temperature 97.9 ??F (36.6 ??C) Heart Rate 100 Respiration 18 SpO2 96 % Blood Pressure 130/89 Neurological: Motor: mild tremor appreciated in hands b/l, spontaneous movements of all extremities b/l Cognitive: Wakefulness/alertness: awake and alert Orientation: unable to assess Attention: Unable to assess Memory: unable to assess Mental Status: Appearance: appears stated age, unkempt, in hospital gown, in b/l soft wrist restraints Behavior: good eye contact, guarded, uncooperative Mood: ... Affect: blunted, stable, irritable Speech: normal rate/tone/volume Thought process: concrete Thought content and perceptions: general paranoia regarding staff, unable to assess SI/HI/AVH Insight and judgment: poor/poor MEDICATIONS: Scheduled Meds:Scheduled Medications[1] Continuous Infusions:Infusions Meds[2] PRN Meds:.PRN Medications[3] DATA: Reviewed. Qtc: 495 on 05/11. ASSESSMENT: Carter Raymundo is a 69 y.o. male with past psych history of schizoaffective disorder on clozapine,past medical history of hypertension, CKD, oropharyngeal dysphagia c/b frequent aspiration now s/p PEG, drug-induced Parkinsonism, who presented from nursing facility with altered mental status with unresponsiveness and aphasia, now medically cleared. Psychiatry initially consulted for assistance with diagnostic clarification, with initial differential ddx of catatonia vs delirium/encephalopathy vs decompensated psychosis. On evaluation today, patient presentation significant for ongoing paranoia, refractory agitation. He is currently adherent to his medication regimen. Unable to reassess cognition and mental status due to limited patient participation, but nir psychotic symptoms including paranoia, disorganized thoughts/behaviors are apparent. Has endorsed passive SI, made verbal threats to staff, no known AVH. Holding bupropion, lowering Sinemet dose as able to facilitate decrease in agitation which appears primarily related to psychosis at this time. Most recent Qtc: 495 (05/11/25). Patient presentation has been most consistent with delirium superimposed on known schizoaffective disorder. Catatonia was deemed unlikely given isolated symptom of mutism, intermittent stupor withoutmuscle rigidity/waxy flexibility, and also the limited effect of benzodiazepines on clinical course. Stroke work up negative. Multiple EEGs demonstrate no seizure, findings more consistent with delirium but non-specific. Brother reports at baseline patient is relatively high-functioning, pleasant, not overtly paranoid. At this point, no concern for acute medical illness, and behavior seems primarily related to underlying schizoaffective disorder. Interdisciplinary meeting held 05/15 to discuss patient's recent escalating behavior and dispo barriers. Will need to first address paranoia, agitation with clozapine uptitration, updated agitation recommendations as necessary. For dispo, patient will need to demonstrate improvement in mobility, cooperation with care. Plan for HCP affirmation court date on Sunday05/20/25. Patient on section 12 due to inability to care for self and acute risk of psychiatric decompensation, bed search in progress. DSM-5 DIAGNOSIS: Schizoaffective disorder Delirium RECOMMENDATIONS: #LEGAL Patient remains on section 12, cannot leave AMA, bed search in progress Continue 1:1 sitter #MANAGEMENT Agree w/ plan for interdisciplinary meeting tomorrow Note last Qtc: Qtc: 495 on 05/11 -Uri; consider repeat EKG q1-2 days as able for monitoring of QTc Continue delirium precautions --> Emphasize strong diurnal cues including windows open during day, limit disruptions overnight, practice avoidance of deliriogenic drugs as possible, mobilize throughout the day as possible, optimize nutrition, ensure normal regular bowel movements, and treat pain to the extent possible Clozapine dosing: please increase to 25mg qAM+150mg qHS Please continue efforts to ensure bowel movement while on clozapine (Last BM: ~05/06) Continue to hold Wellbutrin 100 mg TID Continue gabapentin 100 mg BID Continue ramelteon 8 mg QHS Continue trazodone 150 mg QHS Can continue to offer Seroquel 50 mg PO TID PRN for mild-moderate anxiety, insomnia (first line) Can give lorazepam 0.5mg-1mg IV/IM PRN first line for severe anxiety, agitation (first line); insomnia (second line); please wait at least 30 mins prior to administration of next dose; hold for sedation, confusion May also give Haldol 2 mg IM and Benadryl 50 mg IM for refractory agitation (second line), monitoring closely for EPS; may repeat same dose if no response in 30 mins Essential that patient has regular bowel movements while on clozapine Psychiatry will continue to follow Kimani Rivas MD PGY2, Department of Psychiatry [id number] Case discussed with attending psychiatrist, Dr. Kymberly Mata [1] atorvaSTATin, 20 mg, G-tube, QHS [Held by provider] buPROPion, 100 mg, G-tube, TID carbidopa-levodopa, 1 tablet, G-tube, TID cloZAPine, 125 mg, G-tube, QHS cloZAPine, 25 mg, G-tube, Daily enoxaparin, 40 mg, Subcutaneous, Q24H CLAUDIA famotidine, 20 mg, G-tube, BID gabapentin, 100 mg, G-tube, BID gabapentin, 300 mg, G-tube, QHS lactulose, 20 g, Oral, BID lidocaine, 1 patch, Topical, Q24H multivitamin with minerals, 15 mL, Oral, Daily sodium chloride, 3 mL, Intravenous, Q12H CLAUDIA polyethylene glycol, 17 g, Oral, BID ramelteon, 8 mg, Oral, QHS sennosides, 17.6 mg, G-tube, BID tamsulosin, 0.4 mg, G-tube, QHS traZODone, 150 mg, G-tube, Nightly [2] [3] acetaminophen bisacodyl calcium carbonate guaiFENesin iohexoL LORazepam Insert and Maintain Peripheral IV AND sodium chloride AND sodium chloride QUEtiapine * Karrei Starks MD - 05/15/2025 7:17 AM EDT Images from the original note were not included. [facility] Department of Medicine [facility] Medicine Progress Note Patient: Carter Raymundo Admission Date: 04/15/2025 Length of Stay: 29 PCP: Kilo Hyunh Attending: Mohinder Johnson MD Chief Complaint: Altered mental status OVERNIGHT EVENTS IM ativan x 1 for agitation. Large BM overnight. SUBJECTIVE When asked how he's doing, says I think you know . Unable to obtain any other subjective. OBJECTIVE DATA VITALS T 98 ??F (36.7 ??C) HR 90 BP 126/79 RR 18 SpO2 97 % O2 Device: None (Room air) 75.8 kg (167 lb 1.7 oz) Body mass index is 23.31 kg/m??. PHYSICAL EXAM GENERAL: NAD, resting in bed. HEENT: No scleral icterus, moist mucous membranes. CARDIAC: Clinically well perfused. LUNG: Appears in no respiratory distress. No accessory muscle use. ABD: No abdominal abnormalities on inspection. MSK: No focal joint swelling or deformities. NEURO: Opens eyes to voice. Follows commands. SKIN: No significant rashes, sores or wounds noted on exposed skin. PSYCH: Calm. Paranoid. LABS, MICROBIOLOGY and STUDIES reviewed in Epic. ASSESSMENT & PLAN Carter Raymundo is a 69 y.o. male with a relevant past medical history of HTN, CKD, schizoaffectivedisorder, and drug-induced parkinsonism, who initially presented with unresponsiveness, asphaia, and possible left facial droop concerning for stroke versus TME, but with unremarkable workup. Admitted to medicine for monitoring and re-initiation of clozapine dosing, now medically stable pending inpatient psych placement for decompensated schizoaffective disorder. ACTIVE ISSUES # Brief episode of unresponsiveness # Schizoaffective disorder # Acute delirium Patient initially presenting with acute onset of unresponsiveness, aphasia, and concern for ?facialasymmetry. CTH w/o stroke. MRIb normal. Workup for toxic metabolic encephalopathy negative. Multiple EEGs with no evidence of seizures. During admission, has had multiple triggers called for unresponsiveness (not true catatonia per psych) with no clear trigger. Labs from triggers thus far have all been unremarkable. His ongoing presentation is likely secondary to acute delirium superimposed on known decompensated schizoaffective disorder. Cx - Per Neuro, no clear neurologic explanation for episodes of unresponsiveness - Psych following, appreciate recs Dx - CBC with diff largely stable during admission w/ normal ANC, recheck weekly Tx - Holding home buproprion 100mg TID for now per Psychiatry - Psych adjusting clozapine dosinmg qAM + 125mg qHS per Psychiatry. - Continue with lowered Sinemet dose in case is contributing to agitation and paranoia per patient's outpatient neurologist, Marilyn Raygoza MD - C/h trazodone 150mg qHs - Agitation PRNs: seroquel 50mg TID PRN (1st line), then 0.5mg PO/IV/IM ativan (2nd line) - Ramelteon 8 mg at bedtime - Per psych meets section 12 criteria, cannot leave AMA. Affirmation of HCP pending. - Patient is medically clear for psych bed placement, will encourage to work with PT and get out ofbed as able - Plan for interdisciplinary meeting Tuesday 05/15 2pm #Constipation - resolved Severe stool burden on KUB while on clozapine. Repeat KUB 04/30 with rectal stool ball. Multiple large BM on 05/06 after mag citrate x 3, lactulose, suppository. - Bowel reg: scheduled Miralax, senna BID - Received mag citrate 05/13, 05/14 with large BM #Leukocytosis - resolving Repeat CXR 05/07 with resolution of opacification. Labs with downtrending white count. Anticipate his rise was secondary to agitation. Negative RVP. # Dysphagia with G tube reliance Patient with history of oropharyngeal dysphagia. Pulled out G tube 04/19 AM and again 05/11 overnight. - G tube replaced with IR 05/12 # Transient hypoxia # C/f aspiration pneumonitis Patient with history of oropharyngeal dysphagia with G tube in place. Brief episode of hypoxia on admission that resolved quickly, possible 2/2 aspiration. At the [facility], he is on a pureed diet. High risk for aspiration. 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 EKG's to date all consistent with sinus tachycardia. - CTM CHRONIC / STABLE ISSUES # Drug-induced Parkinsonism - Continuing reduced dose Sinemet as above # CAD # HTN - C/h statin # CKD - Trending Cr, currently at baseline # BPH - C/h tamsulosin # GERD - C/h pepcid CORE MEASURES - FEN: IVF PRN, replenish electrolytes, Diet Modified Texture; Pureed; Thin Liquids; Deliver To Nursing, Finger Foods/No Utensils, No Sharps, Safety Tray - PAML complete - Functional Status: Independent without use of assistive devices for ambulation - DVT prophylaxis: SC low molecular weight heparin - Access: peripheral IV x1 - Code: Full Code - Contact: brother Lr, Patient Contacts Name Legal Rel Relationship Phone Active Delvin Raymundo Brother - Disposition: -- Anticipated discharge to: nursing home facility -- Anticipated discharge date: t+2 -- Anticipated discharge barriers: Pending placement Extended Emergency Contact Information Primary Emergency Contact: Delvin Raymundo Mobile Relation: Brother Silver Solderer needed? No Karrie (Kostas Starks MD Internal Medicine PGY1 Cosigned by Mohinder Johnson MD at 05/15/2025 9:28 PM EDT Associated attestation - Mohinder Johnson MD - 05/15/2025 9:28 PM EDT I have seen and examined Mr. Raymundo, reviewed the findings and plan of care as documented by Karrie Starks MD and agree, except for any additional comments below. Multidisciplinary meeting today to discuss his case, including diagnostic considerations, trajectory, and therapeutic options. Decided to increase his clozapine back to total 175 mg daily. His Qtc was 495 most recently. At this point it would be reasonable to tolerate Qtc slightly above 500 if thisenables him to get the treatment he needs to improve clinically. Will keep a close eye on his QT. I spent 55 minutes in this clinical encounter reviewing the medical record, seeing and examining the patient, placing orders, writing notes, performing signout, and communicating with the applicable medical and nursing teams. Mohinder Johnson MD Section of Hospital Medicine [facility] * Kimani Rivas MD - 05/14/2025 10:26 AM EDT [facility] PSYCHIATRIC CONSULTATION FOLLOW-UP NOTE INTERVAL HPI: -NAEON Patient appears calm on interview. He reports feeling good , responds to a few initial questions, then stares at this interviewer. He does not respond to the remainder of questions verball but maintains eye contact, nods or shakes head in response to a couple of questions. REVIEW OF SYSTEMS: As per HPI EXAM: 05/14/2025 8:29 AM Vital Signs Temperature 98 ??F (36.7 ??C) Heart Rate 90 Respiration 18 SpO2 97 % Blood Pressure 126/79 Neurological: Motor: mild tremor appreciated in hands b/l, spontaneous movements of all extremities b/l Cognitive: Wakefulness/alertness: awake and alert Orientation: unable to assess Attention: Unable to assess Memory: Deferred Mental Status: Appearance: appears stated age, unkempt, in hospital gown Behavior: good eye contact, partially guarded, partially cooperative Mood: good Affect: flat, stable Speech: normal rate/tone/volume Thought process: concrete Thought content and perceptions: general paranoia regarding staff, unable to assess SI/HI/AVH Insight and judgment: poor/poor MEDICATIONS: Scheduled Meds:Scheduled Medications[1] Continuous Infusions:Infusions Meds[2] PRN Meds:.PRN Medications[3] DATA: Reviewed. Qtc: 495 on 05/11. ASSESSMENT: Carter Raymundo is a 69 y.o. male with past psych history of schizoaffective disorder on clozapine,past medical history of hypertension, CKD, oropharyngeal dysphagia c/b frequent aspiration now s/p PEG, drug-induced Parkinsonism, who presented from nursing facility with altered mental status with unresponsiveness and aphasia, now medically cleared. Psychiatry initially consulted for assistance with diagnostic clarification, with initial differential ddx of catatonia vs delirium/encephalopathy vs decompensated psychosis. On evaluation today, patient presentation significant for paranoia, mild- moderate agitation. He is currently adherent to his medication regimen. Unable to reassess cognition and mental status due to limited patient participation, but nir psychotic symptoms including paranoia, disorganized thoughts/behaviors are apparent. Has endorsed passive SI, made verbal threats to staff, no known AVH. Catatonia considered, but exam not consistent with diagnosis at this time beyond mutism. Holding bupropion, lowering Sinemet dose as able to facilitate decrease in agitation which appears primarily relatedto psychosis. Will continue at current clozapine dose. No concerns for acute medical illness per primary team at this time; have noted recurrent mild leukocytosis, but vitals are stable and to this point infectious work up has been negative to rule out concern for acute delirium. Patient presentation has been most consistent with acute delirium superimposed on known schizoaffective disorder. Catatonia was deemed unlikely given isolated symptom of mutism without muscle rigidity/waxy flexibility, and also the limited effect of benzodiazepines on clinical course. Stroke work up negative. Multiple EEGs demonstrate no seizure, findings more consistent with delirium but non-specific. Brother reports at baseline patient is relatively high- functioning, pleasant, not overtly paranoid. Additional diagnostic consideration is contribution of Sinemet to agitation and paranoia of known schizoaffective disorder on lowered dose of clozapine. Sinemet would likely not be indicated for drug-induced parkinsonism in patient solely on clozapine. Per outpatient neurology note (03/02/25) Syn-One biopsy had been performed and was negative, which should rule out primary Parkinsonism. Patient's neurologist (Marilyn Raygoza MD - [facility] [place]) affirms longterm plan to wean off of Sinemet since there is not a current indication to continue; there is reasonable concern it may contribute to agitation. Bupropion also has notable dopaminergic and noradrenergic effects which may impact agitation, reasonable to hold at this time. Patient on section 12 due to inability to care for self and acute risk of psychiatric decompensation, bed search in progress. DSM-5 DIAGNOSIS: Schizoaffective disorder Delirium RECOMMENDATIONS: #LEGAL Patient remains on section 12, cannot leave AMA, bed search in progress Continue 1:1 sitter #MANAGEMENT Agree w/ plan for interdisciplinary meeting tomorrow Note last Qtc: Qtc: 495 on 05/11 -Uri; consider repeat EKG q1-2 days as able for monitoring of QTc Continue delirium precautions --> Emphasize strong diurnal cues including windows open during day, limit disruptions overnight, practice avoidance of deliriogenic drugs as possible, mobilize throughout the day as possible, optimize nutrition, ensure normal regular bowel movements, and treat pain to the extent possible Clozapine dosing: c/w 25mg qAM+125mg qHS Please continue efforts to ensure bowel movement while on clozapine (Last BM: ~05/06) Continue to hold Wellbutrin 100 mg TID Continue gabapentin 100 mg BID Continue ramelteon 8 mg QHS Continue trazodone 150 mg QHS Can continue to offer Seroquel 50 mg PO TID PRN for mild-moderate anxiety, insomnia (first line) Can give lorazepam 0.5mg-1mg IV/IM BID PRN first line for severe anxiety, agitation (first line); insomnia (second line) May also give Haldol 2 mg IM and Benadryl 50 mg IM for refractory agitation (second line), monitoring closely for EPS; may repeat same dose if no response in 30 mins Essential that patient has regular bowel movements while on clozapine Psychiatry will continue to follow Kimani Rivas MD PGY2, Department of Psychiatry [id number] Case staffed with attending psychiatrist, Dr. Kymberly Mata [1] atorvaSTATin, 20 mg, G-tube, QHS [Held by provider] buPROPion, 100 mg, G-tube, TID carbidopa-levodopa, 1 tablet, G-tube, TID cloZAPine, 125 mg, G-tube, QHS cloZAPine, 25 mg, G-tube, Daily enoxaparin, 40 mg, Subcutaneous, Q24H CLAUDIA famotidine, 20 mg, G-tube, BID gabapentin, 100 mg, G-tube, BID gabapentin, 300 mg, G-tube, QHS lactulose, 20 g, Oral, BID lidocaine, 1 patch, Topical, Q24H multivitamin with minerals, 15 mL, Oral, Daily sodium chloride, 3 mL, Intravenous, Q12H CLAUDIA polyethylene glycol, 17 g, Oral, BID ramelteon, 8 mg, Oral, QHS sennosides, 17.6 mg, G-tube, BID tamsulosin, 0.4 mg, G-tube, QHS traZODone, 150 mg, G-tube, Nightly [2] [3] acetaminophen bisacodyl calcium carbonate guaiFENesin iohexoL [Held by provider] LORazepam Insert and Maintain Peripheral IV AND sodium chloride AND sodium chloride QUEtiapine Cosigned by Kymberly Mata MD at 05/14/2025 10:09 PM EDT Associated attestation - Kymberly Mata MD - 05/14/2025 10:09 PM EDT I was present with the resident during the evans portions of the service. I discussed the case with the resident and agree with the findings and plan as documented in the resident's note with the following addendum: On interview, pt is alert and sitting up in bed. He states that he recalls meeting me and makes some paranoid statements that I already know what he is thinking. He continues to look at me while drinking a cup of ice. He does not respond to any more questions but remains alert. He has a tremor in RUE at rest and with activity. He does not participate in cognitive exam. Clinical impression c/w schizoaffective disorder, r/o delirium, r/o underlying neurocognitive disorder with behavioral disturbance. Will continue efforts to engage pt and optimize medication regimen as tolerated while he remains onsection 12 awaiting bed placement for inpatient level of care. * Karrie Starks MD - 05/14/2025 6:49 AM EDT Images from the original note were not included. [facility] Department of Medicine [facility] Medicine Progress Note Patient: Carter Raymundo Admission Date: 04/15/2025 Length of Stay: 28 PCP: Kilo Huynh Attending: Mohinder Johnson MD Chief Complaint: Altered mental status OVERNIGHT EVENTS NAEON SUBJECTIVE Says he doesn't trust our intentions today. Would like cranberry juice. OBJECTIVE DATA VITALS T 97.9 ??F (36.6 ??C) HR (!) 93 BP (!) 144/89 RR 18 SpO2 97 % O2 Device: None (Room air) 75.8 kg (167 lb 1.7 oz) Body mass index is 23.31 kg/m??. PHYSICAL EXAM GENERAL: NAD, resting in bed. HEENT: No scleral icterus, moist mucous membranes. CARDIAC: Clinically well perfused. LUNG: Appears in no respiratory distress. No accessory muscle use. ABD: No abdominal abnormalities on inspection. MSK: No focal joint swelling or deformities. NEURO: Opens eyes to voice. Follows commands. SKIN: No significant rashes, sores or wounds noted on exposed skin. PSYCH: Calm. Paranoid. LABS, MICROBIOLOGY and STUDIES reviewed in Epic. ASSESSMENT & PLAN Carter Raymundo is a 69 y.o. male with a relevant past medical history of HTN, CKD, schizoaffectivedisorder, and drug-induced parkinsonism, who initially presented with unresponsiveness, asphaia, and possible left facial droop concerning for stroke versus TME, but with unremarkable workup. Admitted to medicine for monitoring and re-initiation of clozapine dosing, now medically stable pending inpatient psych placement for decompensated schizoaffective disorder. ACTIVE ISSUES # Brief episode of unresponsiveness # Schizoaffective disorder # Acute delirium Patient initially presenting with acute onset of unresponsiveness, aphasia, and concern for ?facialasymmetry. CTH w/o stroke. MRIb normal. Workup for toxic metabolic encephalopathy negative. Multiple EEGs with no evidence of seizures. During admission, has had multiple triggers called for unresponsiveness (not true catatonia per psych) with no clear trigger. Labs from triggers thus far have all been unremarkable. His ongoing presentation is likely secondary to acute delirium superimposed on known decompensated schizoaffective disorder. Cx - Per Neuro, no clear neurologic explanation for episodes of unresponsiveness - Psych following, appreciate recs Dx - CBC with diff largely stable during admission w/ normal ANC, recheck weekly Tx - Holding home buproprion 100mg TID for now per Psychiatry - Psych adjusting clozapine dosinmg qAM + 125mg qHS per Psychiatry. - Continue with lowered Sinemet dose in case is contributing to agitation and paranoia per patient's outpatient neurologist, Marilyn Raygoza MD - C/h trazodone 150mg qHs - Agitation PRNs: seroquel 50mg TID PRN (1st line), then 0.5mg PO/IV/IM ativan (2nd line) - Ramelteon 8 mg at bedtime - Per psych meets section 12 criteria, cannot leave AMA. Affirmation of HCP pending. - Patient is medically clear for psych bed placement, will encourage to work with PT and get out ofbed as able - Plan for interdisciplinary meeting Tuesday 05/15 #Constipation Severe stool burden on KUB while on clozapine. Repeat KUB 04/30 with rectal stool ball. Multiple large BM on 05/06 after mag citrate x 3, lactulose, suppository. - Bowel reg: scheduled Miralax, senna BID - Received mag citrate 05/13 #Leukocytosis - resolving Repeat CXR 05/07 with resolution of opacification. Labs with downtrending white count. Anticipate his rise was secondary to agitation. Negative RVP. # Dysphagia with G tube reliance Patient with history of oropharyngeal dysphagia. Pulled out G tube 04/19 AM and again 05/11 overnight. - G tube replaced with IR 05/12 # Transient hypoxia # C/f aspiration pneumonitis Patient with history of oropharyngeal dysphagia with G tube in place. Brief episode of hypoxia on admission that resolved quickly, possible 2/2 aspiration. At the [facility], he is on a pureed diet. High risk for aspiration. 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 EKG's to date all consistent with sinus tachycardia. - CTM CHRONIC / STABLE ISSUES # Drug-induced Parkinsonism - Continuing reduced dose Sinemet as above # CAD # HTN - C/h statin # CKD - Trending Cr, currently at baseline # BPH - C/h tamsulosin # GERD - C/h pepcid CORE MEASURES - FEN: IVF PRN, replenish electrolytes, Diet Modified Texture; Pureed; Thin Liquids; Deliver To Nursing, Finger Foods/No Utensils, No Sharps, Safety Tray - PAML complete - Functional Status: Independent without use of assistive devices for ambulation - DVT prophylaxis: SC low molecular weight heparin - Access: peripheral IV x1 - Code: Full Code - Contact: brother Lr, Patient Contacts Name Legal Rel Relationship Phone Active Delvin Raymundo Brother - Disposition: -- Anticipated discharge to: nursing home facility -- Anticipated discharge date: t+2 -- Anticipated discharge barriers: Pending placement Extended Emergency Contact Information Primary Emergency Contact: Delvin Raymundo Mobile Relation: Brother Silver Solderer needed? No Karrie Starks MD ([place]) Internal Medicine PGY1 Cosigned by Mohinder Johnson MD at 05/14/2025 9:43 PM EDT Associated attestation - Mohinder Johnson MD - 05/14/2025 9:43 PM EDT I have seen and examined Mr. Raymundo, reviewed the findings and plan of care as documented by Karrie Starks MD and agree, except for any additional comments below. Reassuring labs today, no significant clinical changes, planning multidisciplinary meeting tomorrow. Mohinder Johnson MD Section of Hospital Medicine [facility] * Karrie Starks MD - 05/13/2025 6:48 AM EDT Images from the original note were not included. [facility] Department of Medicine [facility] Medicine Progress Note Patient: Carter Raymundo Admission Date: 04/15/2025 Length of Stay: 27 PCP: Kilo Huynh Attending: Mohinder Johnson MD Chief Complaint: Altered mental status OVERNIGHT EVENTS Agitated overnight, received Ativan x 1 SUBJECTIVE Says he is not doing too great this AM, but denies pain. Asking for ice cream or Ensures. OBJECTIVE DATA VITALS T 98.1 ??F (36.7 ??C) HR (!) 98 BP 117/80 RR 20 SpO2 94 % O2 Device: None (Room air) 75.8 kg (167 lb 1.7 oz) Body mass index is 23.31 kg/m??. PHYSICAL EXAM GENERAL: NAD, resting in bed. HEENT: No scleral icterus, moist mucous membranes. CARDIAC: Clinically well perfused. LUNG: Appears in no respiratory distress. No accessory muscle use. ABD: No abdominal abnormalities on inspection. MSK: No focal joint swelling or deformities. NEURO: Opens eyes to voice. Follows commands. SKIN: No significant rashes, sores or wounds noted on exposed skin. PSYCH: Calm. Paranoid. LABS, MICROBIOLOGY and STUDIES reviewed in Epic. ASSESSMENT & PLAN Carter Raymundo is a 69 y.o. male with a relevant past medical history of HTN, CKD, schizoaffectivedisorder, and drug-induced parkinsonism, who initially presented with unresponsiveness, asphaia, and possible left facial droop concerning for stroke versus TME, but with unremarkable workup. Admitted to medicine for monitoring and re-initiation of clozapine dosing, now medically stable pending inpatient psych placement for decompensated schizoaffective disorder. ACTIVE ISSUES # Brief episode of unresponsiveness # Schizoaffective disorder Patient initially presenting with acute onset of unresponsiveness, aphasia, and concern for ?facialasymmetry. CTH w/o stroke. MRIb normal. Workup for toxic metabolic encephalopathy negative. Multiple EEGs with no evidence of seizures. During admission, has had multiple triggers called for unresponsiveness (not true catatonia per psych) with no clear trigger. Labs from triggers thus far have all been unremarkable. Cx - Per Neuro, no clear neurologic explanation for episodes of unresponsiveness - Psych following, appreciate recs Dx - CBC with diff largely stable during admission w/ normal ANC, recheck weekly Tx - Holding home buproprion 100mg TID for now per Psychiatry - Psych adjusting clozapine dosinmg qAM + 125mg qHS per Psychiatry. - C/h trazodone 150mg qHs - Agitation PRNs: seroquel 50mg TID PRN (1st line), then 0.5mg PO/IV/IM ativan (2nd line) - Ramelteon 8 mg at bedtime - Per psych meets section 12 criteria, cannot leave AMA. Affirmation of HCP pending. - Patient is medically clear for psych bed placement, will encourage to work with PT and get out ofbed as able #Constipation Severe stool burden on KUB while on clozapine. Repeat KUB 04/30 with rectal stool ball. Multiple large BM on 05/06 after mag citrate x 3, lactulose, suppository. - Bowel reg: scheduled Miralax, senna BID - Attempt to give mag citrate 05/13 #Leukocytosis - resolving Repeat CXR 05/07 with resolution of opacification. Labs with downtrending white count. Anticipate his rise was secondary to agitation. Negative RVP. # Dysphagia with G tube reliance Patient with history of oropharyngeal dysphagia. Pulled out G tube 04/19 AM and again 05/11 overnight. - G tube replaced with IR 05/12 # Transient hypoxia # C/f aspiration pneumonitis Patient with history of oropharyngeal dysphagia with G tube in place. Brief episode of hypoxia on admission that resolved quickly, possible 2/2 aspiration. At the [facility], he is on a pureed diet. High risk for aspiration. 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 EKG's to date all consistent with sinus tachycardia. - CTM CHRONIC / STABLE ISSUES # Drug-induced Parkinsonism - C/h sinemet # CAD # HTN - C/h statin # CKD - Trending Cr, currently at baseline # BPH - C/h tamsulosin # GERD - C/h pepcid CORE MEASURES - FEN: IVF PRN, replenish electrolytes, Diet Modified Texture; Pureed; Thin Liquids; Deliver To Nursing, Finger Foods/No Utensils, No Sharps, Safety Tray - PAML complete - Functional Status: Independent without use of assistive devices for ambulation - DVT prophylaxis: SC low molecular weight heparin - Access: peripheral IV x1 - Code: Full Code - Contact: brother Lr, Patient Contacts Name Legal Rel Relationship Phone Active Delvin Raymundo Brothmarisa - Disposition: -- Anticipated discharge to: nursing home facility -- Anticipated discharge date: t+2 -- Anticipated discharge barriers: Pending placement Extended Emergency Contact Information Primary Emergency Contact: Delvin Raymundo Mobile Relation: Brother Silver Solderer needed? No Karrie (Nelly) MD [facility] Internal Medicine PGY1 Cosigned by Mohinder Johnson MD at 05/13/2025 9:11 PM EDT Associated attestation - Mohinder Johnson MD - 05/13/2025 9:11 PM EDT I have seen and examined Mr. Raymundo, reviewed the findings and plan of care as documented by Karrie Starks MD and agree, except for any additional comments below. Appreciate psychiatry input. Will taper sinamet gradually in case this is playing a role in his current decompensation. Continuing to hold bupropion and continuing increased clozapine dosing, today he accepted more of his meds than the past 2 days. Mohinder Johnson MD Section of Hospital Medicine [facility] * Nicole Ramirez - 05/12/2025 8:42 AM EDT NUTRITION FOLLOW UP NOTE SUBJECTIVE: Patient agitated, not engaging in interview. Tube feeds off given dislodged G-tube. OBJECTIVE: Height: 71 in Admit weight: 97.3 kg (bed, 04/16) Most recent weight: 75.8 kg (bed, 04/17) Pertinent Meds: famotidine, lactulose (held), lorazepam, liquid multivitamin w/ minerals, senna (held). Others noted. Recent Labs 05/11/25 2331 POCGLU 100 Food Allergies: NKFA Diet Order: NPO Tube Feed Order: Two Sundar HN @ 50 mL/hr x20 hrs (run from 1pm to 9am) (provides: 2000 kcal, 84 g protein, 700 mL free water). With 350 mL flushes q6h (+1400 mL). Total 2100 mL free water/day. not infusing. Access Type: No enteral access. GI/Abdomen: Abdomen rounded, tender per flowsheets. LBM 05/08/25. Skin: Irritant contact dermatitis to sacrum per flowsheets. Drains: None. Extremities: No LE edema noted per chart review. Nutrition Focused Physical Exam: Deferred iso severe agitation. ASSESSMENT: Estimated Nutrition Needs: Calories: 8524-4042 kcal (25-30 kcal/kg) Protein: 85-106 g (1.2-1.5 g/kg) Fluids: 4779-9777 mL (25-30 mL/kg) Estimated Needs Calculated Usin.9 kg (156 lb 4.9 oz) (weight at rehab) Specifics: 69M w/ PMHx significant for HTN, CKD, schizoaffective disorder, and drug-induced parkinsonism. Presented to [facility] on 04/15/25 w/ unresponsiveness, asphaia, & possible left facial droop concerning for stroke versus TME. Admitted to medicine for monitoring and re-initiation of clozapine dosing, now medically stable pending inpatient psych placement for decompensated schizoaffective disorder. IR re-consulted for G-tube replacement as patient dislodged Gtube yesterday (05/11/25). Nutrition following for tube feed management. Patient takes no POs in house, now self-dislodged G-tube yesterday awaiting replacement once less agitated per IR. Once enteral access is re-obtained, recommend switching to less concentrated tube feed formula as below as patient currently ordered for most concentrated formula w/ high volume free water flushes, TwoCal HN not warranted. Would recommendstarting at continuous rate to ensure tolerance, then cycling PRN - both recs below. Also recommendre-checking BMP w/ Mg + Phos tomorrow (if patient allows) to assess trends/Na status. No updated weight in ~1 month, obtain new weight as able. Nutrition to follow. Interventions / Recommendations: Advance diet as able. Switch to less concentrated tube feed formula: Jevity 1.5 @ 60 mL/hr x24 hrs (provides: 2160 kcals,92g protein, & 1094 mL free water). Start at 20 mL & advance by 20 mL q4h until at goal of 60 mL/hr. +150 mL free water flushes q4h (+900 mL). Total free water: 1994 mL total H2o/day. Adjust free water flushes PRN for Na/hydration. Cycled recs: Jevity 1.5 @ 75 mL/hr x18 hrs (run from 1pm to 7am - similar cycle at rehab) (provides: 2025 kcals, 86g protein, & 1026 mL free water). Check updated BMP w/ Mg + Phosphorus labs. Monitor I's/O's, GI function, & BMs. Continue bowel regimen for constipation symptoms. Obtain new weight as able. Continue multivitamin w/ minerals. Nutrition to continue to follow, please message or page [phone] with any questions/concerns Signed by: Nicole Ramirez, MS, RD, LDN 05/12/25 8:42 AM * Karrie Starks MD - 05/12/2025 6:59 AM EDT Images from the original note were not included. [facility] Department of Medicine [facility] Medicine Progress Note Patient: Carter Raymundo Admission Date: 04/15/2025 Length of Stay: 26 PCP: Kilo Huynh Attending: Mohinder Johnson MD Chief Complaint: Altered mental status OVERNIGHT EVENTS Lots of agitation and aggression overnight. Pulled out G tube. SUBJECTIVE Says he's not in any pain. He wants ice cream. Knows that he pulled out his tube last night but says he does not need it back in. OBJECTIVE DATA VITALS T 98.4 ??F (36.9 ??C) HR (!) 94 BP 112/74 RR 20 SpO2 95 % O2 Device: None (Room air) 75.8 kg (167 lb 1.7 oz) Body mass index is 23.31 kg/m??. PHYSICAL EXAM GENERAL: NAD, resting in bed. HEENT: No scleral icterus, moist mucous membranes. CARDIAC: Clinically well perfused. LUNG: Appears in no respiratory distress. No accessory muscle use. ABD: No abdominal abnormalities on inspection. MSK: No focal joint swelling or deformities. NEURO: Opens eyes to voice. Follows commands. SKIN: No significant rashes, sores or wounds noted on exposed skin. PSYCH: Calm. Paranoid. LABS, MICROBIOLOGY and STUDIES reviewed in Epic. ASSESSMENT & PLAN Carter Raymundo is a 69 y.o. male with a relevant past medical history of HTN, CKD, schizoaffectivedisorder, and drug-induced parkinsonism, who initially presented with unresponsiveness, asphaia, and possible left facial droop concerning for stroke versus TME, but with unremarkable workup. Admitted to medicine for monitoring and re-initiation of clozapine dosing, now medically stable pending inpatient psych placement for decompensated schizoaffective disorder. ACTIVE ISSUES # Brief episode of unresponsiveness # Schizoaffective disorder Patient initially presenting with acute onset of unresponsiveness, aphasia, and concern for ?facialasymmetry. CTH w/o stroke. MRIb normal. Workup for toxic metabolic encephalopathy negative. Multiple EEGs with no evidence of seizures. During admission, has had multiple triggers called for unresponsiveness (not true catatonia per psych) with no clear trigger. Labs from triggers thus far have all been unremarkable. Cx - Per Neuro, no clear neurologic explanation for episodes of unresponsiveness - Psych following, appreciate recs Dx - CBC with diff largely stable during admission w/ normal ANC, recheck weekly Tx - Holding home buproprion 100mg TID for now per Psychiatry - Psych adjusting clozapine dosinmg qAM + 125mg qHS per Psychiatry. - C/h trazodone 150mg qHs - Agitation PRNs: seroquel 50mg TID PRN (1st line), then 0.5mg PO/IV/IM ativan (2nd line) - Ramelteon 8 mg at bedtime - Per psych meets section 12 criteria, cannot leave AMA. Affirmation of HCP pending. - Patient is medically clear for psych bed placement, will encourage to work with PT and get out ofbed as able #Constipation - resolved Severe stool burden on KUB while on clozapine. Repeat KUB 04/30 with rectal stool ball. - Bowel reg: scheduled Miralax, senna BID - Received mag citrate x 3, lactulose, suppository previously - Multiple large BM on 05/06 #Leukocytosis - resolving Repeat CXR 05/07 with resolution of opacification. Labs with downtrending white count. Anticipate his rise was secondary to agitation. Negative RVP. # Dysphagia with G tube reliance Patient with history of oropharyngeal dysphagia. Pulled out G tube 04/19 AM and again 05/11 overnight. - NPO at midnight, IR to attempt exchange today # Transient hypoxia # C/f aspiration pneumonitis Patient with history of oropharyngeal dysphagia with G tube in place. Brief episode of hypoxia on admission that resolved quickly, possible 2/2 aspiration. At the [facility], he is on a pureed diet. High risk for aspiration. 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 EKG's to date all consistent with sinus tachycardia. - CTM CHRONIC / STABLE ISSUES # Drug-induced Parkinsonism - C/h sinemet # CAD # HTN - C/h statin # CKD - Trending Cr, currently at baseline # BPH - C/h tamsulosin # GERD - C/h pepcid CORE MEASURES - FEN: IVF PRN, replenish electrolytes, Diet Modified Texture; Pureed; Thin Liquids; Deliver To Nursing, Finger Foods/No Utensils, No Sharps, Safety Tray - PAML complete - Functional Status: Independent without use of assistive devices for ambulation - DVT prophylaxis: SC low molecular weight heparin - Access: peripheral IV x1 - Code: Full Code - Contact: brother rL, Patient Contacts Name Legal Rel Relationship Phone Active Delvin Raymundo Brother - Disposition: -- Anticipated discharge to: nursing home facility -- Anticipated discharge date: t+2 -- Anticipated discharge barriers: Pending placement Extended Emergency Contact Information Primary Emergency Contact: Delvin Raymundo Mobile Relation: Brother Silver Solderer needed? No Karrie Starks MD ([place]) Internal Medicine PGY1 Cosigned by Mohinder Johnson MD at 05/12/2025 8:25 PM EDT Associated attestation - Mohinder Johnson MD - 05/12/2025 8:25 PM EDT I have seen and examined Mr. Raymundo, reviewed the findings and plan of care as documented by Karrie Starks MD and agree, except for any additional comments below. Appreciate IR replacing his gtube at the bedside today. Unfortunately he has been declining nearly all medications for the past two days. We are awaiting the affirmation of his health care proxy given his ongoing delirium/psychosis. Awaiting bloodwork, which he declined today. Obtaining bloodwork would be helpful but does not appear to be an emergency clinically. Planning a multidisciplinary meeting this week. Mohinder Johnson MD Section of Hospital Medicine [facility] * Luiza Hamm MD - 05/12/2025 6:26 AM EDT Interventional Radiology Inpatient Progress Note REASON FOR CONSULTATION: Dislodged g-tube HISTORY: Carter Raymundo (BID #: [id number]) is a 69 y.o. male with schizoaffective disorder, drug-induced parkinsonism, with intermittent episodes of agitation that has unfortunately led to the dislodgement of his g-tube. G-tube was initially placed 12/2024 by surgery at [facility], was last rescued via bedside exchange by IR on 04/19/25 for similar indication with placement of an 18Fr Entuit g-tube. IR Procedures: 04/19/25 - G-tube rescue 24 HR INTERVAL HISTORY: NAOE. 12 Fr Maharaj in G tube tract. Agitated this morning, did not want to be assessed. 24 HR VITALS: Vitals: 05/11/25 2338 BP: 112/74 Pulse: (!) 94 Resp: 20 Temp: 98.4 ??F (36.9 ??C) SpO2: 95% Temp Min: 98.4 ??F (36.9 ??C) Max: 98.5 ??F (36.9 ??C) Pulse Min: 93 Max: 94 BP Min: 112/74 Max: 149/88 Resp Min: 18 Max: 20 SpO2 Min: 95 % Max: 98 % Physical Exam Constitutional: General: He is not in acute distress. Abdominal: Comments: 12 Fr maharaj in G tube tract, dressing c/d/I from external visual inspection, could not remove dressing to assess for leakage as pt did not want to be assessed Neurological: Mental Status: He is alert. LABS: Recent Results (from the past 24 hours) POCT Glucose Collection Time: 05/11/25 11:31 PM Result Value Ref Range Glucose, POC 100 70 - 100 mg/dL ECG 12 lead Collection Time: 05/11/25 11:34 PM Result Value Ref Range Ventricular Heart Rate 95 BPM Atrial Heart Rate 95 BPM LA Interval 154 ms QRSD Interval 100 ms QT Interval 394 ms QTC Interval 495 ms P Mathews 87 degrees R Mathews -37 degrees T Wave Mathews 65 degrees ASSESSMENT: Carter Raymundo is a 69 y.o. male with schizoaffective disorder, drug-induced parkinsonism, admitted with altered mental status and intermittent episodes of agitation, now with a dislodged g-tube (18fr entuit). Currently has 12 Fr maharaj in tract. PLAN: -Pt very agitated this morning and did not want to be assessed, will need optimization prior to considering replacement/rescure of G tube - G-tube replacement at bedside with IR pending availability -Keep NPO -Keep 12 Fr maharaj in the tract -Please page [phone] with any questions or concerns. Luiza Hamm MD 05/12/2025 Cosigned by Cassandra Fenrandez MD at 05/12/2025 8:42 PM EDT Associated attestation - Cassandra Fernandez MD - 05/12/2025 8:42 PM EDT I reviewed this note and agree with the findings and plan of care. I have nothing to add or modify on the report of the history as noted, or the examination as recorded in the note above. We have discussed both the history and the examination. I have reviewed any available laboratory tests and perso onel interpreted any available radiology tests. We have discussed the plan of care and I formulated the assessment and plan. I agree with all points of care for this patient. Signed: Cassandra Fernandez MD 05/12/2025 * Kimani Rivas MD - 05/11/2025 10:57 AM EDT Images from the original note were not included. [facility] PSYCHIATRIC CONSULTATION FOLLOW-UP NOTE INTERVAL HPI: - Seroquel given overnight for agitation, NAEON following - Patient refusing all AM meds, intermittently agitated this AM Patient appears in mild distress on evaluation this morning. He greets this physician underwriter initially then states that your generosity is disingenuous . He recalls this physician underwriter in the torture chamber with him and becomes increasingly agitated. He states that he won't be here tomorrow and asks this physician underwriter to figure out why . He becomes increasingly agitated over the course of the interview and requests this physician underwriter to leave, uses expletives, begins posturing. He declines having spoken to his brother recently. REVIEW OF SYSTEMS: As per HPI EXAM: 05/11/2025 8:09 AM Vital Signs Temperature 98.3 ??F (36.8 ??C) Heart Rate 91 Respiration 16 SpO2 94 % Blood Pressure 143/88 Neurological: Motor: mild tremor appreciated in hands b/l, spontaneous movements of all extremities b/l Cognitive: Wakefulness/alertness: awake and alert Orientation: unable to assess Attention: Unable to assess Memory: Deferred Mental Status: Appearance: appears stated age, unkempt, in hospital gown Behavior: good eye contact, guarded, uncooperative Mood: get out! Affect: appears angry, stable, irritable Speech: normal rate/tone/volume Thought process: circumstantial, disorganized Thought content and perceptions: reports he will be tomorrow, nir paranoia regarding staff Insight and judgment: poor/poor MEDICATIONS: Scheduled Meds:Scheduled Medications[1] Continuous Infusions:Infusions Meds[2] PRN Meds:.PRN Medications[3] DATA: Reviewed. Qtc: 503 per paper chart on 05/10. ASSESSMENT: Carter Raymundo is a 69 y.o. male with past psych history of schizoaffective disorder on clozapine,past medical history of hypertension, CKD, oropharyngeal dysphagia c/b frequent aspiration now s/p PEG, drug-induced Parkinsonism, who presented from nursing facility with altered mental status with unresponsiveness and aphasia, now medically cleared. Psychiatry initially consulted for assistance with diagnostic clarification, with initial differential ddx of catatonia vs delirium/encephalopathy vs decompensated psychosis. On evaluation today, patient presentation significant for limited engagement in care, moderate agitation. Has been mostly adherent to medication regimen until this morning, then began declining medications and tube feeding. Unable to reassess cognition and mental status due to limited patient participation, but nir psychotic symptoms including paranoia, disorganized thoughts/behaviors are apparent. Has endorsed passive SI, made verbal threats to staff, no known AVH. Current plan to uptitrate current clozapine dose as able with close follow up. Note Qtc: 503 on 05/10 ([facility]). No concerns foracute medical illness per primary team at this time; have noted recurrent mild leukocytosis, but vitals are stable and to this point infectious work up has been negative. Patient presentation has been most consistent with acute delirium superimposed on known schizoaffective disorder. Catatonia was deemed unlikely given isolated symptom of mutism without muscle rigidity/waxy flexibility, and also the limited effect of benzodiazepines on clinical course. Stroke work up negative. Multiple EEGs demonstrate no seizure, findings more consistent with delirium but non-specific. Brother reports at baseline patient is relatively high- functioning, pleasant, not overtly paranoid. Additional diagnostic consideration is contribution of Sinemet to agitation and paranoia of known schizoaffective disorder on lowered dose of clozapine. Sinemet would likely not be indicated for drug-induced parkinsonism in patient solely on clozapine. Per outpatient neurology note (03/02/25) Syn-One biopsy had been performed and was negative, which should rule out primary Parkinsonism. Would be reasonable to touch base with patient's neurologist (Marilyn Raygoza MD - [facility] [place]) as per her note it indicates a longterm plan to wean off of Sinemet since there would no longer be any indication to continue. Bupropion also has notable dopaminergic and noradrenergic effects which may impact agitation, reasonable to hold in setting of worsening agitation. Patient on section 12 due to inability to care for self and acute risk of psychiatric decompensation, bed search in progress. DSM-5 DIAGNOSIS: Schizoaffective disorder Delirium RECOMMENDATIONS: #LEGAL Patient remains on section 12, cannot leave AMA, bed search in progress Continue 1:1 sitter #MANAGEMENT Agree w/ plan for substituted decision making/affirmation of HCP Agree w/ plan for interdisciplinary meeting next week Please repeat EKG tomorrow as able to monitor Qtc (last Qtc: 503 05/10 -[facility]) Continue delirium precautions --> Emphasize strong diurnal cues including windows open during day, limit disruptions overnight, practice avoidance of deliriogenic drugs as possible, mobilize throughout the day as possible, optimize nutrition, ensure normal regular bowel movements, and treat pain to the extent possible Clozapine dosing: please increase to 25mg qAM+125mg qHS Please continue efforts to ensure bowel movement while on clozapine (Last BM: ~05/06) Please hold Wellbutrin 100 mg TID Continue gabapentin 100 mg BID Continue ramelteon 8 mg QHS Continue trazodone 150 mg QHS Can continue to offer Seroquel 50 mg PO TID PRN for mild-moderate anxiety, insomnia (first line) Can give lorazepam 0.5mg IV/IM BID PRN first line for severe anxiety, agitation; insomnia (second line) Essential that patient has regular bowel movements while on clozapine Psychiatry will continue to follow Kimani Rivas MD PGY2, Department of Psychiatry [id number] Case discussed with attending psychiatrist, Dr. Kymberly Mata. [1] atorvaSTATin, 20 mg, G-tube, QHS buPROPion, 100 mg, G-tube, TID carbidopa-levodopa, 2 tablet, G-tube, TID cloZAPine, 100 mg, G-tube, QHS cloZAPine, 25 mg, G-tube, Daily enoxaparin, 40 mg, Subcutaneous, Q24H CLAUDIA famotidine, 20 mg, G-tube, BID gabapentin, 100 mg, G-tube, BID gabapentin, 300 mg, G-tube, QHS lactulose, 20 g, Oral, BID lidocaine, 1 patch, Topical, Q24H multivitamin with minerals, 15 mL, Oral, Daily sodium chloride, 3 mL, Intravenous, Q12H CLAUDIA polyethylene glycol, 17 g, Oral, BID ramelteon, 8 mg, Oral, QHS sennosides, 17.6 mg, G-tube, BID tamsulosin, 0.4 mg, G-tube, QHS traZODone, 150 mg, G-tube, Nightly [2] [3] acetaminophen bisacodyl calcium carbonate guaiFENesin Insert and Maintain Peripheral IV AND sodium chloride AND sodium chloride QUEtiapine * Karrie Starks MD - 05/11/2025 6:52 AM EDT Images from the original note were not included. [facility] Department of Medicine [facility] Medicine Progress Note Patient: Carter Raymundo Admission Date: 04/15/2025 Length of Stay: 25 PCP: Kilo Huynh Attending: Mohinder Johnson MD Chief Complaint: Altered mental status OVERNIGHT EVENTS NAEON SUBJECTIVE Opens eyes to voice. Does not want to talk this morning. OBJECTIVE DATA VITALS T 97.9 ??F (36.6 ??C) HR 89 BP 133/83 RR 18 SpO2 98 % O2 Device: None (Room air) 75.8kg (167 lb 1.7 oz) Body mass index is 23.31 kg/m??. PHYSICAL EXAM GENERAL: NAD, resting in bed. HEENT: No scleral icterus, moist mucous membranes. CARDIAC: Clinically well perfused. LUNG: Appears in no respiratory distress. No accessory muscle use. ABD: Abdomen with minimal distention, improved from prior. No significant TTP. MSK: No focal joint swelling or deformities. NEURO: Opens eyes to voice. Follows commands. SKIN: No significant rashes, sores or wounds noted on exposed skin. PSYCH: Calm. Paranoid. LABS, MICROBIOLOGY and STUDIES reviewed in Epic. ASSESSMENT & PLAN Carter Raymundo is a 69 y.o. male with a relevant past medical history of HTN, CKD, schizoaffectivedisorder, and drug-induced parkinsonism, who initially presented with unresponsiveness, asphaia, and possible left facial droop concerning for stroke versus TME, but with unremarkable workup. Admitted to medicine for monitoring and re-initiation of clozapine dosing, now medically stable pending inpatient psych placement for decompensated schizoaffective disorder. ACTIVE ISSUES # Brief episode of unresponsiveness # Schizoaffective disorder Patient initially presenting with acute onset of unresponsiveness, aphasia, and concern for ?facialasymmetry. CTH w/o stroke. MRIb normal. Workup for toxic metabolic encephalopathy negative. Multiple EEGs with no evidence of seizures. During admission, has had multiple triggers called for unresponsiveness (not true catatonia per psych) with no clear trigger. Labs from triggers thus far have all been unremarkable. Cx - Per Neuro, no clear neurologic explanation for episodes of unresponsiveness - Psych following, appreciate recs Dx - CBC with diff largely stable during admission w/ normal ANC, recheck weekly Tx - Holding home buproprion 100mg TID for now per Psychiatry - Psych adjusting clozapine dosinmg qAM + 125mg qHS per Psychiatry. - C/h trazodone 150mg qHs - Agitation PRNs: seroquel 50mg TID PRN (1st line), then 0.5mg PO/IV/IM ativan (2nd line) - Ramelteon 8 mg at bedtime - Per psych meets section 12 criteria, cannot leave AMA - Patient is medically clear for psych bed placement, will encourage to work with PT and get out ofbed as able #Constipation - resolved Severe stool burden on KUB while on clozapine. Repeat KUB 04/30 with rectal stool ball. - Bowel reg: scheduled Miralax, senna BID - Received mag citrate x 3, lactulose, suppository previously - Multiple large BM on 05/06 #Leukocytosis - resolving Repeat CXR 05/07 with resolution of opacification. Labs with downtrending white count. Anticipate his rise was secondary to agitation. Negative RVP. # Dysphagia with G tube reliance Patient with history of oropharyngeal dysphagia. Pulled out G tube 04/19 AM - G tube replaced by IR on 04/19 PM, ok to use # Transient hypoxia # C/f aspiration pneumonitis Patient with history of oropharyngeal dysphagia with G tube in place. Brief episode of hypoxia on admission that resolved quickly, possible 2/2 aspiration. At the [facility], he is on a pureed diet. High risk for aspiration. 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 EKG's to date all consistent with sinus tachycardia. - CTM CHRONIC / STABLE ISSUES # Drug-induced Parkinsonism - C/h sinemet # CAD # HTN - C/h statin # CKD - Trending Cr, currently at baseline # BPH - C/h tamsulosin # GERD - C/h pepcid CORE MEASURES - FEN: IVF PRN, replenish electrolytes, Diet Modified Texture; Pureed; Thin Liquids; Deliver To Nursing, Finger Foods/No Utensils, No Sharps, Safety Tray - PAML complete - Functional Status: Independent without use of assistive devices for ambulation - DVT prophylaxis: SC low molecular weight heparin - Access: peripheral IV x1 - Code: Full Code - Contact: brother Lr, Patient Contacts Name Legal Rel Relationship Phone Active Delvin Raymundo Brother - Disposition: -- Anticipated discharge to: nursing home facility -- Anticipated discharge date: t+2 -- Anticipated discharge barriers: Pending placement Extended Emergency Contact Information Primary Emergency Contact: Delvin Raymundo Mobile Relation: Brother Silver Solderer needed? No Karrie (Kostas Starks MD Internal Medicine PGY1 Cosigned by Mohinder Johnson MD at 05/11/2025 8:42 PM EDT Associated attestation - Mohinder Johnson MD - 05/11/2025 8:42 PM EDT I have seen and examined Mr. Raymundo, reviewed the findings and plan of care as documented by Karrie Starks MD and agree, except for any additional comments below. Pursuing affirmation of HCP given patient's lack of improvement and now with more frequent refusal of medications. Appreciate psychiatry input on medication titration. Planning for multidisciplinary meeting. Psych team pursuing recs from outpatient neurologist re: patriciot. I spent 55 minutes in this clinical encounter reviewing the medical record, seeing and examining the patient, placing orders, writing notes, performing signout, and communicating with the applicable medical and nursing teams. Mohinder Johnson MD Section of Hospital Medicine [facility] * Karrie Starks MD - 05/10/2025 6:43 AM EDT Images from the original note were not included. [facility] Department of Medicine [facility] Medicine Progress Note Patient: Carter Raymundo Admission Date: 04/15/2025 Length of Stay: 24 PCP: Kilo Huynh Attending: Noe Carranza MD Chief Complaint: Altered mental status OVERNIGHT EVENTS NAEON SUBJECTIVE Opens eyes to voice. Asked me to leave the room because he doesn't want to talk right now. Denies new pain. OBJECTIVE DATA VITALS T 98.2 ??F (36.8 ??C) HR (!) 95 BP (!) 141/87 RR 18 SpO2 97 % O2 Device: None (Room air) 75.8 kg (167 lb 1.7 oz) Body mass index is 23.31 kg/m??. PHYSICAL EXAM GENERAL: NAD, resting in bed. HEENT: No scleral icterus, moist mucous membranes. CARDIAC: Clinically well perfused. LUNG: Appears in no respiratory distress. No accessory muscle use. ABD: Abdomen with minimal distention, improved from prior. No significant TTP. MSK: No focal joint swelling or deformities. NEURO: Opens eyes to voice. Follows commands. SKIN: No significant rashes, sores or wounds noted on exposed skin. PSYCH: Calm. Paranoid. LABS, MICROBIOLOGY and STUDIES reviewed in Epic. ASSESSMENT & PLAN Carter Raymundo is a 69 y.o. male with a relevant past medical history of HTN, CKD, schizoaffectivedisorder, and drug-induced parkinsonism, who initially presented with unresponsiveness, asphaia, and possible left facial droop concerning for stroke versus TME, but with unremarkable workup. Admitted to medicine for monitoring and re-initiation of clozapine dosing, now medically stable pending inpatient psych placement for decompensated schizoaffective disorder. ACTIVE ISSUES # Brief episode of unresponsiveness # Schizoaffective disorder Patient initially presenting with acute onset of unresponsiveness, aphasia, and concern for ?facialasymmetry. CTH w/o stroke. MRIb normal. Workup for toxic metabolic encephalopathy negative. Multiple EEGs with no evidence of seizures. During admission, has had multiple triggers called for unresponsiveness (not true catatonia per psych) with no clear trigger. Labs from triggers thus far have all been unremarkable. Cx - Per Neuro, no clear neurologic explanation for episodes of unresponsiveness - Psych following, appreciate recs Dx - CBC with diff largely stable during admission w/ normal ANC, recheck weekly Tx - C/h buproprion 100mg TID - Psych adjusting clozapine dosinmg qAM + 100mg qHS as of 05/06. Deferring further uptitration of clozapine for now given Qtc > 500. Will ask psych whether his other potentially Qtc-prolongingPsych meds (Wellbutrin, etc) could be adjusted to permit uptitrating clozapine. Repeat EKG 05/10 if patient tolerates. - C/h trazodone 150mg qHs - Agitation PRNs: seroquel 50mg TID PRN (1st line), then 0.5mg PO/IV/IM ativan (2nd line) - Ramelteon 8 mg at bedtime - Per psych meets section 12 criteria, cannot leave AMA - Patient is medically clear for psych bed placement, will encourage to work with PT and get out ofbed as able #Constipation - resolved Severe stool burden on KUB while on clozapine. Repeat KUB 04/30 with rectal stool ball. - Bowel reg: scheduled Miralax, senna BID - Received mag citrate x 3, lactulose, suppository previously - Multiple large BM on 05/06 #Leukocytosis - resolving Repeat CXR 05/07 with resolution of opacification. Labs with downtrending white count. Anticipate his rise was secondary to agitation. Negative RVP. # Dysphagia with G tube reliance Patient with history of oropharyngeal dysphagia. Pulled out G tube 04/19 AM - G tube replaced by IR on 04/19 PM, ok to use # Transient hypoxia # C/f aspiration pneumonitis Patient with history of oropharyngeal dysphagia with G tube in place. Brief episode of hypoxia on admission that resolved quickly, possible 2/2 aspiration. At the [facility], he is on a pureed diet. High risk for aspiration. 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 EKG's to date all consistent with sinus tachycardia. - CTM CHRONIC / STABLE ISSUES # Drug-induced Parkinsonism - C/h sinemet # CAD # HTN - C/h statin # CKD - Trending Cr, currently at baseline # BPH - C/h tamsulosin # GERD - C/h pepcid CORE MEASURES - FEN: IVF PRN, replenish electrolytes, Diet Modified Texture; Pureed; Thin Liquids; Deliver To Nursing, Finger Foods/No Utensils, No Sharps, Safety Tray - PAML complete - Functional Status: Independent without use of assistive devices for ambulation - DVT prophylaxis: SC low molecular weight heparin - Access: peripheral IV x1 - Code: Full Code - Contact: brother Lr, Patient Contacts Name Legal Rel Relationship Phone Active Delvin Raymundo Brothmarisa - Disposition: -- Anticipated discharge to: nursing home facility -- Anticipated discharge date: t+2 -- Anticipated discharge barriers: Pending placement Extended Emergency Contact Information Primary Emergency Contact: Delvin Raymundo Mobile Relation: Brother Silver Solderer needed? No Karrie (Kostas Starks MD Dept of Medicine Cosigned by Noe Carranza MD at 05/10/2025 4:44 PM EDT Associated attestation - Noe Carranza MD - 05/10/2025 4:44 PM EDT Date: 05/10/25 Time seen & examined: 0915 I have evaluated the patient in-person today and reviewed available new data including recent vitalsigns, labs, micro, imaging, and other studies, and the patient's active medications. I have helpedformulate our team's assessment & plan of care as documented below by Karrie Starks MD. Noe Carranza MD [facility] Medicine Attending pager [phone] * Karrie Starks MD - 05/09/2025 6:43 AM EDT Images from the original note were not included. [facility] Department of Medicine [facility] Medicine Progress Note Patient: Carter Raymundo Admission Date: 04/15/2025 Length of Stay: 23 PCP: Kilo Huynh Attending: Mohinder Johnson MD Chief Complaint: Altered mental status OVERNIGHT EVENTS NAEON SUBJECTIVE Opens eyes to voice but does not verbally respond to questions. OBJECTIVE DATA VITALS T 98.7 ??F (37.1 ??C) HR (!) 94 BP (!) 146/88 RR 18 SpO2 (!) 91 % O2 Device: None (Roomair) 75.8 kg (167 lb 1.7 oz) Body mass index is 23.31 kg/m??. PHYSICAL EXAM GENERAL: NAD, resting in bed. HEENT: No scleral icterus, moist mucous membranes. CARDIAC: Clinically well perfused. LUNG: Appears in no respiratory distress. No accessory muscle use. ABD: Abdomen with minimal distention, improved from prior. No significant TTP. MSK: No focal joint swelling or deformities. NEURO: Opens eyes to voice. Follows commands. SKIN: No significant rashes, sores or wounds noted on exposed skin. PSYCH: Calm. Paranoid. LABS, MICROBIOLOGY and STUDIES reviewed in Epic. ASSESSMENT & PLAN Carter Raymundo is a 69 y.o. male with a relevant past medical history of HTN, CKD, schizoaffectivedisorder, and drug-induced parkinsonism, who initially presented with unresponsiveness, asphaia, and possible left facial droop concerning for stroke versus TME, but with unremarkable workup. Admitted to medicine for monitoring and re-initiation of clozapine dosing, now medically stable pending inpatient psych placement for decompensated schizoaffective disorder with a hospital course complicatedby severe constipation. ACTIVE ISSUES # Brief episode of unresponsiveness # Schizoaffective disorder Patient initially presenting with acute onset of unresponsiveness, aphasia, and concern for ?facialasymmetry. CTH w/o stroke. MRIb normal. Workup for toxic metabolic encephalopathy negative. Multiple EEGs with no evidence of seizures. During admission, has had multiple triggers called for unresponsiveness (not true catatonia per psych) with no clear trigger. Labs from triggers thus far have all been unremarkable. Cx - Per Neuro, no clear neurologic explanation for episodes of unresponsiveness - Psych following, appreciate recs Dx - CBC with diff largely stable during admission w/ normal ANC, recheck weekly Tx - C/h buproprion 100mg TID - Psych adjusting clozapine dosinmg qAM + 100mg qHS as of 05/06. Deferring further uptitration of clozapine for now given Qtc > 500. Will ask psych whether his other potentially Qtc-prolongingPsych meds (Wellbutrin, etc) could be adjusted to permit uptitrating clozapine - C/h trazodone 150mg qHs - Agitation PRNs: seroquel 50mg TID PRN (1st line), then 0.5mg PO/IV/IM ativan (2nd line) - Ramelteon 8 mg at bedtime - Per psych meets section 12 criteria, cannot leave AMA - Patient is medically clear for psych bed placement, will encourage to work with PT and get out ofbed as able #Constipation - resolving Severe stool burden on KUB while on clozapine. Repeat KUB 04/30 with rectal stool ball. - Bowel reg: scheduled Miralax, senna BID - Received mag citrate x 3, lactulose, suppository previously - Multiple large BM on 05/06 #Leukocytosis - resolving Repeat CXR 05/07 with resolution of opacification. Labs with downtrending white count. Anticipate his rise was secondary to agitation. Negative RVP. # Dysphagia with G tube reliance Patient with history of oropharyngeal dysphagia. Pulled out G tube 04/19 AM - G tube replaced by IR on 04/19 PM, ok to use # Transient hypoxia # C/f aspiration pneumonitis Patient with history of oropharyngeal dysphagia with G tube in place. Brief episode of hypoxia on admission that resolved quickly, possible 2/2 aspiration. At the [facility], he is on a pureed diet. High risk for aspiration. 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 EKG's to date all consistent with sinus tachycardia. - CTM CHRONIC / STABLE ISSUES # Drug-induced Parkinsonism - C/h sinemet # CAD # HTN - C/h statin # CKD - Trending Cr, currently at baseline # BPH - C/h tamsulosin # GERD - C/h pepcid CORE MEASURES - FEN: IVF PRN, replenish electrolytes, Diet Modified Texture; Pureed; Thin Liquids; Deliver To Nursing, Finger Foods/No Utensils, No Sharps, Safety Tray - PAML complete - Functional Status: Independent without use of assistive devices for ambulation - DVT prophylaxis: SC low molecular weight heparin - Access: peripheral IV x1 - Code: Full Code - Contact: brother Lr, Patient Contacts Name Legal Rel Relationship Phone Active Delvin Raymundo Brother - Disposition: -- Anticipated discharge to: nursing home facility -- Anticipated discharge date: t+2 -- Anticipated discharge barriers: Completion of evaluation for altered mental status Extended Emergency Contact Information Primary Emergency Contact: Delvin Raymundo Mobile Relation: Brother Silver Solderer needed? No Karrie Starks MD ([place]) Internal Medicine PGY1 Cosigned by Noe Carranza MD at 05/10/2025 12:11 AM EDT Associated attestation - Noe Carranza MD - 05/10/2025 12:11 AM EDT Date: 05/09/25 Time seen & examined: 0945 I have evaluated the patient in-person today and reviewed available new data including recent vitalsigns, labs, micro, imaging, and other studies, and the patient's active medications. I have helpedformulate our team's assessment & plan of care as documented below by Karrie Starks MD. Noe Carranza MD [facility] Medicine Attending pager [phone] * Kimani Rivas MD - 05/08/2025 2:00 PM EDT [facility] PSYCHIATRIC CONSULTATION FOLLOW-UP NOTE INTERVAL HPI: - Ativan PRN used last afternoon for agitation - Seroquel PRNs used yesterday for agitation Patient resting comfortably on interview. On seeing this physician underwriter he shouts no I can't talk today get the f___ out! He then refuses to respond to further questions on interview. Interview prematurelyconcluded per patient preference. Marilyn Raygoza (outpatient neurologist - [phone]), left REVIEW OF SYSTEMS: As per HPI EXAM: 05/08/2025 7:53 AM Vital Signs Temperature 98.4 ??F (36.9 ??C) Heart Rate 78 Respiration 18 SpO2 96 % Blood Pressure 125/77 Neurological: Motor: mild tremor appreciated in hands b/l, spontaneous movements of extremities b/l Cognitive: Wakefulness/alertness: awake and alert Orientation: unable to assess Attention: Unable to assess Memory: Deferred Mental Status: Appearance: appears stated age, unkempt, in hospital gown Behavior: good eye contact, guarded, uncooperative Mood: get the f___ out Affect: appears angry, stable, irritable Speech: normal rate/tone/volume Thought process: linear, grossly organized Thought content and perceptions: unable to assess Insight and judgment: poor/poor MEDICATIONS: Scheduled Meds:Scheduled Medications[1] Continuous Infusions:Infusions Meds[2] PRN Meds:.PRN Medications[3] DATA: Reviewed. Qtc: 512 (04/30/25). ASSESSMENT: Carter Raymundo is a 69 y.o. male with past psych history of schizoaffective disorder on clozapine,past medical history of hypertension, CKD, oropharyngeal dysphagia c/b frequent aspiration now s/p PEG, drug-induced Parkinsonism, who presented from nursing facility with altered mental status with unresponsiveness and aphasia, now medically cleared. Psychiatry initially consulted for assistance with diagnostic clarification, with initial differential ddx of catatonia vs delirium/encephalopathy vs decompensated psychosis. On evaluation today, patient presentation significant for limited engagement in care, mild agitation. Has been mostly adherent to medication regimen. Unable to reassess cognition and mental status due to limited patient participation. Patient also with recurrence of leukocytosis on labs (increased to 16 on 05/07), vitals stable. Infectious work up negative to this point with CXR, RVP, pending repeat UA. Current plan to continue current clozapine dose with close follow up. Note Qtc: 514 on 05/06 ([facility]). No medication management changes indicated at this time. Patient presentation has been most consistent with acute delirium superimposed on known schizoaffective disorder. Catatonia was deemed unlikely given isolated symptom of mutism without muscle rigidity/waxy flexibility, and also the limited effect of benzodiazepines on clinical course. Stroke work up negative. Multiple EEGs demonstrate no seizure, findings more consistent with delirium but non-specific. Brother reports at baseline patient is relatively high- functioning, pleasant, not overtly paranoid. Additional diagnostic consideration is contribution of Sinemet to agitation and paranoia of known schizoaffective disorder on lowered dose of clozapine. Sinemet would likely not be indicated for drug-induced parkinsonism in patient solely on clozapine. Per outpatient neurology note (03/02/25) Syn-One biopsy had been performed and was negative, which should rule out primary Parkinsonism. Would be reasonable to touch base with patient's neurologist (Marilyn Raygoza MD - [facility] [place]) as per her note it indicates a longterm plan to wean off of Sinemet since there would no longer be any indication to continue. Bupropion also has notable dopaminergic and noradrenergic effects which may impact agitation, but would be hesitant to adjust this as he has been on stable dose for several years. Patient on section 12 due to inability to care for self and acute risk of psychiatric decompensation, bed search in progress. DSM-5 DIAGNOSIS: Schizoaffective disorder Delirium RECOMMENDATIONS: #LEGAL Patient remains on section 12, cannot leave AMA, bed search in progress Continue 1:1 sitter #MANAGEMENT Agree w/ plan for substituted decision making/affirmation of HCP Agree w/ plan for interdisciplinary meeting next week May repeat EKG q1-2 days as able given Qtc elevation >500 on clozapine Continue delirium precautions --> Emphasize strong diurnal cues including windows open during day, limit disruptions overnight, practice avoidance of deliriogenic drugs as possible, mobilize throughout the day as possible, optimize nutrition, ensure normal regular bowel movements, and treat pain to the extent possible Clozapine dosing: may c/w current dose 25mg qAM+100mg qHS Please continue efforts to ensure bowel movement while on clozapine Continue Wellbutrin 100 mg TID Continue gabapentin 100 mg BID Continue ramelteon 8 mg QHS Continue trazodone 150 mg QHS Can continue to offer Seroquel 50 mg PO TID PRN for anxiety, irritability, agitation Can give lorazepam 0.5mg IV/IM BID PRN second line for severe agitation Essential that patient has regular bowel movements while on clozapine Psychiatry will continue to follow Kimani Rivas MD PGY2, Department of Psychiatry [id number] [1] atorvaSTATin, 20 mg, G-tube, QHS buPROPion, 100 mg, G-tube, TID carbidopa-levodopa, 2 tablet, G-tube, TID cloZAPine, 100 mg, G-tube, QHS cloZAPine, 25 mg, G-tube, Daily enoxaparin, 40 mg, Subcutaneous, Q24H CLAUDIA famotidine, 20 mg, G-tube, BID gabapentin, 100 mg, G-tube, BID gabapentin, 300 mg, G-tube, QHS lactulose, 20 g, Oral, BID lidocaine, 1 patch, Topical, Q24H multivitamin with minerals, 15 mL, Oral, Daily sodium chloride, 3 mL, Intravenous, Q12H CLAUDIA polyethylene glycol, 17 g, Oral, BID ramelteon, 8 mg, Oral, QHS sennosides, 17.6 mg, G-tube, BID tamsulosin, 0.4 mg, G-tube, QHS traZODone, 150 mg, G-tube, Nightly [2] [3] acetaminophen bisacodyl calcium carbonate guaiFENesin Insert and Maintain Peripheral IV AND sodium chloride AND sodium chloride QUEtiapine * Agustín Vazquez MD - 05/08/2025 7:24 AM EDT Images from the original note were not included. [facility] Department of Medicine [facility] Medicine Progress Note Patient: Carter Raymundo Admission Date: 04/15/2025 Length of Stay: 22 PCP: Kilo Huynh Attending: Mohinder Johnson MD Chief Complaint: Altered mental status OVERNIGHT EVENTS Code purple called overnight please see note. Patient agitated, spitting, assaulting staff, gave 0.5 ativan IM with improvement in symptoms. SUBJECTIVE Lying down reading in bed. Patient feels comfortable. Has no acute complaints. Denies any pain, fever, or cough. OBJECTIVE DATA VITALS T 99.2 ??F (37.3 ??C) HR (!) 96 BP 120/75 RR 18 SpO2 96 % O2 Device: None (Room air) 75.8 kg (167 lb 1.7 oz) Body mass index is 23.31 kg/m??. PHYSICAL EXAM GENERAL: NAD, resting in bed. HEENT: No scleral icterus, moist mucous membranes. CARDIAC: Clinically well perfused. LUNG: Appears in no respiratory distress. No accessory muscle use. ABD: Abdomen distended. No significant TTP. MSK: No focal joint swelling or deformities. NEURO: Opens eyes to voice. Follows commands. SKIN: No significant rashes, sores or wounds noted on exposed skin. PSYCH: Calm. Paranoid. LABS, MICROBIOLOGY and STUDIES reviewed in Epic. ASSESSMENT & PLAN Carter Raymundo is a 69 y.o. male with a relevant past medical history of HTN, CKD, schizoaffectivedisorder, and drug-induced parkinsonism, who initially presented with unresponsiveness, asphaia, and possible left facial droop concerning for stroke versus TME, but with unremarkable workup. Admitted to medicine for monitoring and re-initiation of clozapine dosing, now medically stable pending inpatient psych placement for decompensated schizoaffective disorder with a hospital course complicatedby severe constipation. ACTIVE ISSUES # Brief episode of unresponsiveness # Schizoaffective disorder Patient initially presenting with acute onset of unresponsiveness, aphasia, and concern for ?facialasymmetry. CTH w/o stroke. MRIb normal. Workup for toxic metabolic encephalopathy negative. Multiple EEGs with no evidence of seizures. During admission, has had multiple triggers called for unresponsiveness (not true catatonia per psych) with no clear trigger. Labs from triggers thus far have all been unremarkable. Cx - Per Neuro, no clear neurologic explanation for episodes of unresponsiveness - Psych following, appreciate recs Dx - CBC with diff largely stable during admission w/ normal ANC, recheck weekly Tx - C/h buproprion 100mg TID - Psych adjusting clozapine dosinmg qAM + 100mg qHS as of 05/06. Deferring further uptitration of clozapine for now given Qtc > 500 - C/h trazodone 150mg qHs - Agitation PRNs: seroquel 50mg TID PRN (1st line), then 0.5mg PO/IV/IM ativan (2nd line) - Ramelteon 8 mg at bedtime - Per psych meets section 12 criteria, cannot leave AMA - Patient is medically clear for psych bed placement, will encourage to work with PT and get out ofbed as able #Constipation - resolving Severe stool burden on KUB while on clozapine. Repeat KUB 04/30 with rectal stool ball. - Bowel reg: scheduled Miralax, senna BID - Received mag citrate x 3, lactulose, suppository previously - Multiple large BM on 05/06 #Leukocytosis Repeat CXR 05/07 with resolution of opacification. Labs with downtrending white count. Anticipate his rise was secondary to agitation. Negative RVP. # Dysphagia with G tube reliance Patient with history of oropharyngeal dysphagia. Pulled out G tube 04/19 AM - G tube replaced by IR on 04/19 PM, ok to use # Transient hypoxia # C/f aspiration pneumonitis Patient with history of oropharyngeal dysphagia with G tube in place. Brief episode of hypoxia on admission that resolved quickly, possible 2/2 aspiration. At the [facility], he is on a pureed diet. High risk for aspiration. 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 EKG's to date all consistent with sinus tachycardia. - CTM CHRONIC / STABLE ISSUES # Drug-induced Parkinsonism - C/h sinemet # CAD # HTN - C/h statin # CKD - Trending Cr, currently at baseline # BPH - C/h tamsulosin # GERD - C/h pepcid CORE MEASURES - FEN: IVF PRN, replenish electrolytes, Diet Modified Texture; Pureed; Thin Liquids; Deliver To Nursing, Finger Foods/No Utensils, No Sharps, Safety Tray - PAML complete - Functional Status: Independent without use of assistive devices for ambulation - DVT prophylaxis: SC low molecular weight heparin - Access: peripheral IV x1 - Code: Full Code - Contact: brother Lr, Patient Contacts Name Legal Rel Relationship Phone Active Delvin Raymundo Brother - Disposition: -- Anticipated discharge to: nursing home facility -- Anticipated discharge date: t+2 -- Anticipated discharge barriers: Completion of evaluation for altered mental status Extended Emergency Contact Information Primary Emergency Contact: Delvin Raymundo Mobile Relation: Brother Silver Solderer needed? No Agustín Vazquez MD PGY2 Cosigned by Mohinder Johnson MD at 05/09/2025 12:38 AM EDT Associated attestation - Mohinder Johnson MD - 05/09/2025 12:38 AM EDT I have seen and examined Mr. Raymundo, reviewed the findings and plan of care as documented by Agustín Vazquez MD and agree, except for any additional comments below. WBC down from yesterday without intervention, suggesting possible stress response without infection, CXR improved from prior. Took most of his meds today, but continues to overall make limited progress. QT is currently limiting higher clozapine dosing. Planning for multidisciplinary meeting next week, affirmation of HCP. Mohinder Johnson MD Section of Hospital Medicine [facility] * Kimani Rivas MD - 05/07/2025 8:22 AM EDT [facility] PSYCHIATRIC CONSULTATION FOLLOW-UP NOTE INTERVAL HPI: - Ativan PRN used overnight for agitation - Seroquel PRNs used for agitation Patient seen by attending and this physician underwriter. He indicates frustration with the team and believes thatthere have been coordinated intentions to harm him. He is very guarded and does not want to discusseven superficial topics. He repeatedly asks the interviewers to leave the room. He denies any acuteconcerns and indicates that he wants to leave. REVIEW OF SYSTEMS: As per HPI EXAM: 05/06/2025 3:57 PM Vital Signs Temperature 98.1 ??F (36.7 ??C) Heart Rate 86 Respiration 18 SpO2 96 % Blood Pressure 110/70 Neurological: Motor: mild tremor appreciated in hands b/l, spontaneous movements of extremities b/l Cognitive: Wakefulness/alertness: awake and alert Orientation: grossly oriented to person/place/situation Attention: Attentive to conversation Memory: Deferred Mental Status: Appearance: appears stated age, unkempt, in hospital gown Behavior: good eye contact, guarded, uncooperative Mood: you know exactly how I feel Affect: appears angry, stable, irritable Speech: normal rate/tone/volume Thought process: linear, grossly organized Thought content and perceptions: does not report SI/HI/AVH, believes this physician underwriter to be part of group that is persecuting him, grossly paranoid Insight and judgment: limited/limited MEDICATIONS: Scheduled Meds:Scheduled Medications[1] Continuous Infusions:Infusions Meds[2] PRN Meds:.PRN Medications[3] DATA: Reviewed. Qtc: 512 (04/30/25). ASSESSMENT: Carter Raymundo is a 69 y.o. male with past psych history of schizoaffective disorder on clozapine,past medical history of hypertension, CKD, oropharyngeal dysphagia c/b frequent aspiration now s/p PEG, drug-induced Parkinsonism, who presented from nursing facility with altered mental status with unresponsiveness and aphasia, now medically cleared. Psychiatry initially consulted for assistance with diagnostic clarification, with initial differential ddx of catatonia vs delirium/encephalopathy vs decompensated psychosis. On evaluation today, patient presentation significant for worsening paranoia, mild agitation. Starting to decline tube feeds and medications as previously done. Unable to reassess cognition and mental status due to limited patient participation. Patient continues to have successful bowel movement while on lowered clozapine dose. Continuing current clozapine dose with close follow up. Qtc: 514 on 05/06 ([facility]). Patient presentation has been most consistent with acute delirium superimposed on known schizoaffective disorder. Catatonia is less likely given isolated symptom of mutism without muscle rigidity/waxy flexibility, and also the limited effect of benzodiazepines on clinical course. Brother reports atbaseline patient is relatively high-functioning, pleasant, not overtly paranoid. Additional diagnostic consideration is contribution of Sinemet to agitation and paranoia of known schizoaffective disorder on lowered dose of clozapine. Sinemet would likely not be indicated for drug-induced parkinsonism in patient solely on clozapine. Per outpatient neurology note (03/02/25) Syn-One biopsy had been performed and was negative, which should rule out primary Parkinsonism. Would be reasonable to touch base with patient's neurologist (Marilyn Raygoza MD - [facility] [place]) as per her note it indicates a terminal carman plan to wean off of Sinemet since there would no longer be any indication to continue. Patient on section 12 due to inability to care for self and acute risk of psychiatric decompensation, bed search in progress. DSM-5 DIAGNOSIS: Schizoaffective disorder Delirium RECOMMENDATIONS: #LEGAL Patient remains on section 12, cannot leave AMA, bed search in progress Continue 1:1 sitter #MANAGEMENT Agree w/ plan for substituted decision making/affirmation of HCP Consider touching base with outpatient neurologist Continue delirium precautions --> Emphasize strong diurnal cues including windows open during day, limit disruptions overnight, practice avoidance of deliriogenic drugs as possible, mobilize throughout the day as possible, optimize nutrition, ensure normal regular bowel movements, and treat pain to the extent possible Clozapine dosing: may c/w current dose 25mg qAM+100mg qHS Please continue efforts to ensure bowel movement while on clozapine Continue Wellbutrin 100 mg TID Continue gabapentin 100 mg BID Continue ramelteon 8 mg QHS Continue trazodone 150 mg QHS Can continue to offer Seroquel 50 mg PO TID PRN for anxiety, irritability, agitation Can give lorazepam 0.5mg IV/IM BID PRN second line for severe agitation Essential that patient has regular bowel movements while on clozapine Psychiatry will continue to follow Recommendations communicated to primary team. Kimani Rivas MD PGY2, Department of Psychiatry [id number] Case staffed with attending psychiatrist, Dr. Kymberly Mata. [1] atorvaSTATin, 20 mg, G-tube, QHS buPROPion, 100 mg, G-tube, TID carbidopa-levodopa, 2 tablet, G-tube, TID cloZAPine, 100 mg, G-tube, QHS cloZAPine, 25 mg, G-tube, Daily enoxaparin, 40 mg, Subcutaneous, Q24H CLAUDIA famotidine, 20 mg, G-tube, BID gabapentin, 100 mg, G-tube, BID gabapentin, 300 mg, G-tube, QHS lactulose, 20 g, Oral, BID lidocaine, 1 patch, Topical, Q24H multivitamin with minerals, 15 mL, Oral, Daily sodium chloride, 3 mL, Intravenous, Q12H CLAUDIA polyethylene glycol, 17 g, Oral, BID ramelteon, 8 mg, Oral, QHS sennosides, 17.6 mg, G-tube, BID tamsulosin, 0.4 mg, G-tube, QHS traZODone, 150 mg, G-tube, Nightly [2] [3] acetaminophen bisacodyl calcium carbonate guaiFENesin Insert and Maintain Peripheral IV AND sodium chloride AND sodium chloride QUEtiapine Cosigned by Kymberly Mata MD at 05/08/2025 5:00 PM EDT Associated attestation - Kymberly Mata MD - 05/08/2025 5:00 PM EDT I was present with the resident during the evans portions of the service. I discussed the case with the resident and agree with the findings and plan as documented in the resident's note with the following addendum: Pt is seen lying in bed. He is alert and interactive with interview. He continues to appear guardedand paranoid. When asked how he feels, he states you already know how I feel. He is not responsive to redirection. He remains calm but irritable. Clinical impression c/w schizoaffective disorder with hospital course c/b delirium, r/o underlying neurocognitive disorder. We are continuing gradual uptitration of clozapine, holding dose today due to prolonged Qtc. Unclear if Sinemet contributing to agitation; can consider gradual dose reduction in coordination with outpatient neurologist. Would continue section 12 for disorganization and impaired self care (declining meds, nutrition) in setting of psychosis, decompensated from baseline. Appreciate ongoing bed search for inpatient level of care. * Karrie Starks MD - 05/07/2025 7:10 AM EDT Images from the original note were not included. [facility] Department of Medicine [facility] Medicine Progress Note Patient: Carter Raymundo Admission Date: 04/15/2025 Length of Stay: 21 PCP: Kilo Huynh Attending: Mohinder Johnson MD Chief Complaint: Altered mental status OVERNIGHT EVENTS 21:30 - Patient shouting swearing, threatening female personnel, refusing meds through NG tube. Received IM ativan x 1 with improvement. SUBJECTIVE Says he will not take his meds today. Denies any pain. OBJECTIVE DATA VITALS T 98.1 ??F (36.7 ??C) HR 86 BP 110/70 RR 18 SpO2 96 % O2 Device: None (Room air) 75.8kg (167 lb 1.7 oz) Body mass index is 23.31 kg/m??. PHYSICAL EXAM GENERAL: NAD, resting in bed. HEENT: No scleral icterus, moist mucous membranes. CARDIAC: Clinically well perfused. LUNG: Appears in no respiratory distress. No accessory muscle use. ABD: Abdomen distended. No significant TTP. MSK: No focal joint swelling or deformities. NEURO: Opens eyes to voice. Follows commands. SKIN: No significant rashes, sores or wounds noted on exposed skin. PSYCH: Calm. Paranoid. LABS, MICROBIOLOGY and STUDIES reviewed in Epic. ASSESSMENT & PLAN Carter Raymundo is a 69 y.o. male with a relevant past medical history of HTN, CKD, schizoaffectivedisorder, and drug-induced parkinsonism, who initially presented with unresponsiveness, asphaia, and possible left facial droop concerning for stroke versus TME, but with unremarkable workup. Admitted to medicine for monitoring and re-initiation of clozapine dosing, now medically stable pending inpatient psych placement for decompensated schizoaffective disorder with a hospital course complicatedby severe constipation. ACTIVE ISSUES # Brief episode of unresponsiveness # Schizoaffective disorder Patient initially presenting with acute onset of unresponsiveness, aphasia, and concern for ?facialasymmetry. CTH w/o stroke. MRIb normal. Workup for toxic metabolic encephalopathy negative. Multiple EEGs with no evidence of seizures. During admission, has had multiple triggers called for unresponsiveness (not true catatonia per psych) with no clear trigger. Labs from triggers thus far have all been unremarkable. Cx - Per Neuro, no clear neurologic explanation for episodes of unresponsiveness - Psych following, appreciate recs Dx - CBC with diff largely stable during admission w/ normal ANC, recheck weekly Tx - C/h buproprion 100mg TID - Psych adjusting clozapine dosinmg qAM + 100mg qHS as of 05/06. Deferring further uptitration of clozapine for now given Qtc > 500 - C/h trazodone 150mg qHs - Agitation PRNs: seroquel 50mg TID PRN (1st line), then 0.5mg PO/IV/IM ativan (2nd line) - Ramelteon 8 mg at bedtime - Per psych meets section 12 criteria, cannot leave AMA - Patient is medically clear for psych bed placement, will encourage to work with PT and get out ofbed as able #Constipation - resolving Severe stool burden on KUB while on clozapine. Repeat KUB 04/30 with rectal stool ball. - Bowel reg: scheduled Miralax, senna BID - Received mag citrate x 3, lactulose, suppository previously - Multiple large BM on 05/06 #Productive cough #Leukocytosis Low c/f PNA based on reassuring CXR. Repeat CXR 05/03 with new RUL consolidation c/f infiltrate. - CBC with mild leukocytosis to 11 but unchaged from prior. - Reassuring that patient has stable vitals and no significant change to cough. Deferring additional workup or antibiotics for now - Increased leukocytosis on 05/07 to . Repeat CXR, RVP, and UA for infectious workup # Dysphagia with G tube reliance Patient with history of oropharyngeal dysphagia. Pulled out G tube 04/19 AM - G tube replaced by IR on 04/19 PM, ok to use # Transient hypoxia # C/f aspiration pneumonitis Patient with history of oropharyngeal dysphagia with G tube in place. Brief episode of hypoxia on admission that resolved quickly, possible 2/2 aspiration. At the [facility], he is on a pureed diet. High risk for aspiration. 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 EKG's to date all consistent with sinus tachycardia. - CTM CHRONIC / STABLE ISSUES # Drug-induced Parkinsonism - C/h sinemet # CAD # HTN - C/h statin # CKD - Trending Cr, currently at baseline # BPH - C/h tamsulosin # GERD - C/h pepcid CORE MEASURES - FEN: IVF PRN, replenish electrolytes, Diet Modified Texture; Pureed; Thin Liquids; Deliver To Nursing, Finger Foods/No Utensils, No Sharps, Safety Tray - PAML complete - Functional Status: Independent without use of assistive devices for ambulation - DVT prophylaxis: SC low molecular weight heparin - Access: peripheral IV x1 - Code: Full Code - Contact: brother Lr, Patient Contacts Name Legal Rel Relationship Phone Active Delvin Raymundo Brothmarisa - Disposition: -- Anticipated discharge to: nursing home facility -- Anticipated discharge date: t+2 -- Anticipated discharge barriers: Completion of evaluation for altered mental status Extended Emergency Contact Information Primary Emergency Contact: Delvin Raymundo Mobile Relation: Brother Silver Solderer needed? No Karrie Starks MD ([place]) Dept of Medicine Cosigned by Mohinder Johnson MD at 05/07/2025 9:20 PM EDT Associated attestation - Mohinder Johnson MD - 05/07/2025 9:20 PM EDT I have seen and examined Mr. Raymundo, reviewed the findings and plan of care as documented by Karrie Starks MD and agree, except for any additional comments below. Difficult night and morning, ultimately declined AM meds, although later took meds in PM. WBC up, possibly related to the overnight events, but could reflect evolving infectious process (no new symptoms or concerning vitals). Working up with CXR, UA if able. Mohinder Johnson MD Section of Hospital Medicine [facility] * Kymberly Mata MD - 05/06/2025 2:18 PM EDT [facility] PSYCHIATRIC CONSULTATION FOLLOW-UP NOTE INTERVAL HPI: Increased clozapine dose yesterday to 25mg qAM + 100mg qHS. He was adherent to medications yesterday and this morning. He received one dose of quetiapine 50mg PRN around bedtime. Staff report that this morning he had a bowel movement and was not cooperative with routine care with cleaning. On interview, pt is seen lying in bed. He gestures for me to come closer. He does not speak or respond to any questions. He is alert and tracking but non-verbal. REVIEW OF SYSTEMS: Unable to elicit EXAM: Temp: [98.7 ??F (37.1 ??C)] 98.7 ??F (37.1 ??C) Heart Rate: [93] 93 Resp: [18] 18 BP: (118)/(79) 118/79 SpO2: [94 %] 94 % Neurological: Gait exam deferred Moving all extremities spontaneously B/l resting tremor in UEs Mental Status: Appearing older than stated age, dressed in hospital attire, reduced grooming. More withdrawn. Goodeye contact. Non-verbal and not following commands. Gestures for me to come toward him. Mood is notstated. Affect is calm. Unable to elicit thought process or thought content. Alert but unable to elicit cognitive exam. Insight/Judgment poor/poor. DATA: Lab Results Component Value Date WBC 11.60 (H) 05/05/2025 HGB 12.5 (L) 05/05/2025 HCT 38.0 (L) 05/05/2025 MCV 96 05/05/2025 PLT 298 05/05/2025 CXR (05/03/25):There is a small patchy infiltrate in the right upper lung, which is new in the interval, worrisome for an early infiltrate. The heart size and mediastinal contours are within normal limits. There is no pulmonary vascular congestion, pleural effusion, or pneumothorax. 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 EEG (05/01/25): IMPRESSION: Abnormal EEG due to intermittent background 5-7Hz theta slowing while awake. ECG (04/30/25: Normal sinus rhythm. Rate 87. Left axis deviation. Left ventricular hypertrophy with QRS widening. Prolonged QTc interval 512ms. MEDICATIONS: Scheduled Meds:Scheduled Medications[1] Continuous Infusions:Infusions Meds[2] PRN Meds:.PRN Medications[3] ASSESSMENT: 69 y/o M with h/o schizoaffective disorder, prior psychiatric admissions, no h/o SA/SIB, CAD, gout, hyperlipidemia, HTN, CKD, oropharyngeal dysphagia c/b frequent aspiration now s/p PEG, drug-induced parkinsonism who is sent from SNF for an episode of unresponsiveness, aphasia and question of facial droop. Psychiatry initially consulted to evaluate for catatonia vs toxic- metabolic encephalopathy and following for management of psychosis in setting of lowering of clozapine dose. Hospital course c/b recurrent episodes of unresponsiveness with unspecified etiology. There was initial concern for catatonia but exam without motor findings and more sedated with Ativan challenge. He had episodes with regular medication administration, likely ruling out missed doses of clozapine or Sinemet contributing to presentation. Head imaging and EEG initially unremarkable; most recent EEGrevealed intermittent background theta slowing while awake. First episode occurred in context of increased clozapine dose, which may have contributed to level of sedation. Pt is now medically stable but continuing to present with paranoid thoughts and mood lability. We are gradually retitrating clozapine back to home dose, on which pt was reportedly stable for many years prior to admission. Reduced dose during period of significant constipation, now resolved. Tolerated 125mg dose yesterday with BM this morning. On exam, he is alert but disengaged and does not participate verbally. This is a change from yesterday, when pt remained guarded but was more conversational. Given ongoing paranoia and disorganization in the setting of a major mental illness, the pt does continue to meet criteria for section 12. We will continue to follow with you and work with pt on medication management and psychotherapeutic interventions while awaiting inpatient level of care. DSM-5 DIAGNOSIS: Schizoaffective disorder RECOMMENDATIONS: -continue section 12; pt may not leave AMA -recheck ECG; if Qtc <500, increase clozapine to 25mg qHS + 125mg qHS -continue bowel regimen, titrate to BM q1-2d on clozapine -continue bupropion 100mg TID -continue gabapentin 100mg BID -continue trazodone 150mg qHS; hold for oversedation -offer quetiapine 50mg TID PRN anxiety/agitation first line -offer lorazepam 0.5mg IV/IM BID PRN second line for severe agitation -appreciate CM assistance in facilitating bed search for inpatient level of psychiatric care -we will continue to follow with you [1] atorvaSTATin, 20 mg, G-tube, QHS buPROPion, 100 mg, G-tube, TID carbidopa-levodopa, 2 tablet, G-tube, TID cloZAPine, 100 mg, G-tube, QHS cloZAPine, 25 mg, G-tube, Daily enoxaparin, 40 mg, Subcutaneous, Q24H CLAUDIA famotidine, 20 mg, G-tube, BID gabapentin, 100 mg, G-tube, BID gabapentin, 300 mg, G-tube, QHS lactulose, 20 g, Oral, BID lidocaine, 1 patch, Topical, Q24H multivitamin with minerals, 15 mL, Oral, Daily sodium chloride, 3 mL, Intravenous, Q12H CLAUDIA polyethylene glycol, 17 g, Oral, BID ramelteon, 8 mg, Oral, QHS sennosides, 17.6 mg, G-tube, BID tamsulosin, 0.4 mg, G-tube, QHS traZODone, 150 mg, G-tube, Nightly [2] [3] acetaminophen bisacodyl calcium carbonate guaiFENesin Insert and Maintain Peripheral IV AND sodium chloride AND sodium chloride QUEtiapine * Karrie Starks MD - 05/06/2025 7:00 AM EDT Images from the original note were not included. [facility] Department of Medicine [facility] Medicine Progress Note Patient: Carter Raymundo Admission Date: 04/15/2025 Length of Stay: 20 PCP: Kilo Huynh Attending: Mohinder Johnson MD Chief Complaint: Altered mental status OVERNIGHT EVENTS Per nursing, had multiple large BM overnight. SUBJECTIVE Feeling ok this morning. Says he spoke to his brother yesterday, but feels paranoid about him. Continues to have back pain but does not want us to look at his back or give him anything for the pain. OBJECTIVE DATA VITALS T 98.7 ??F (37.1 ??C) HR (!) 93 BP 118/79 RR 18 SpO2 94 % O2 Device: None (Room air) 75.8 kg (167 lb 1.7 oz) Body mass index is 23.31 kg/m??. PHYSICAL EXAM GENERAL: NAD, resting in bed. HEENT: No scleral icterus, moist mucous membranes. CARDIAC: Clinically well perfused. Normal S1, S2. LUNG: Appears in no respiratory distress. No accessory muscle use. Lungs clear to auscultation bilaterally. ABD: Abdomen distended. No significant TTP. MSK: No focal joint swelling or deformities. NEURO: Opens eyes to voice. Follows commands. SKIN: No significant rashes, sores or wounds noted on exposed skin. PSYCH: Calm. Paranoid. LABS, MICROBIOLOGY and STUDIES reviewed in Epic. ASSESSMENT & PLAN Carter Raymundo is a 69 y.o. male with a relevant past medical history of HTN, CKD, schizoaffectivedisorder, and drug-induced parkinsonism, who initially presented with unresponsiveness, asphaia, and possible left facial droop concerning for stroke versus TME, but with unremarkable workup. Admitted to medicine for monitoring and re-initiation of clozapine dosing, now medically stable pending inpatient psych placement for decompensated schizoaffective disorder with a hospital course complicatedby severe constipation. ACTIVE ISSUES # Brief episode of unresponsiveness # Schizoaffective disorder Patient initially presenting with acute onset of unresponsiveness, aphasia, and concern for ?facialasymmetry. CTH w/o stroke. MRIb normal. Workup for toxic metabolic encephalopathy negative. Multiple EEGs with no evidence of seizures. During admission, has had multiple triggers called for unresponsiveness (not true catatonia per psych) with no clear trigger. Labs from triggers thus far have all been unremarkable. Cx - Per Neuro, no clear neurologic explanation for episodes of unresponsiveness - Psych following, appreciate recs Dx - CBC with diff largely stable during admission w/ normal ANC, recheck weekly Tx - C/h buproprion 100mg TID - Psych adjusting clozapine dosinmg qAM + 100mg qHS as of 05/05 - C/h trazodone 150mg qHs - Agitation PRNs: seroquel 50mg TID PRN (1st line), then 0.5mg PO/IV/IM ativan (2nd line) - Ramelteon 8 mg at bedtime - Per psych meets section 12 criteria, cannot leave AMA - Patient is medically clear for psych bed placement, will encourage to work with PT and get out ofbed as able #Constipation - resolving Severe stool burden on KUB while on clozapine. Repeat KUB 04/30 with rectal stool ball. - Bowel reg: scheduled Miralax, senna BID - Received mag citrate x 3, lactulose, suppository previously - Multiple large BM on 05/06 #Productive cough Low c/f PNA based on reassuring CXR. Repeat CXR 05/03 with new RUL consolidation c/f infiltrate. - CBC with mild leukocytosis to 11 but unchaged from prior. - Reassuring that patient has stable vitals and no significant change to cough. Deferring additional workup or antibiotics for now # Dysphagia with G tube reliance Patient with history of oropharyngeal dysphagia. Pulled out G tube 04/19 AM - G tube replaced by IR on 04/19 PM, ok to use # Transient hypoxia # C/f aspiration pneumonitis Patient with history of oropharyngeal dysphagia with G tube in place. Brief episode of hypoxia on admission that resolved quickly, possible 2/2 aspiration. At the [facility], he is on a pureed diet. High risk for aspiration. 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 EKG's to date all consistent with sinus tachycardia. - CTM CHRONIC / STABLE ISSUES # Drug-induced Parkinsonism - C/h sinemet # CAD # HTN - C/h statin # CKD - Trending Cr, currently at baseline # BPH - C/h tamsulosin # GERD - C/h pepcid CORE MEASURES - FEN: IVF PRN, replenish electrolytes, Diet Modified Texture; Pureed; Thin Liquids; Deliver To Nursing, Finger Foods/No Utensils, No Sharps, Safety Tray - PAML complete - Functional Status: Independent without use of assistive devices for ambulation - DVT prophylaxis: SC low molecular weight heparin - Access: peripheral IV x1 - Code: Full Code - Contact: jose elias Lrer, Patient Contacts Name Legal Rel Relationship Phone Active Delvin Raymundo Brother - Disposition: -- Anticipated discharge to: nursing home facility -- Anticipated discharge date: t+2 -- Anticipated discharge barriers: Completion of evaluation for altered mental status Extended Emergency Contact Information Primary Emergency Contact: Delvin Raymundo Mobile Relation: Brother Silver Solderer needed? No Karrie (Nelly) MD [facility] Dept of Medicine Cosigned by Mohinder Johnson MD at 05/06/2025 3:23 PM EDT Associated attestation - Mohinder Johnson MD - 05/06/2025 3:23 PM EDT I have seen and examined Mr. Raymundo, reviewed the findings and plan of care as documented by Karrie Starks MD and agree, except for any additional comments below. Robust response to bowel regimen overnight. Today spoke with psychiatry and will increase clozapine, recheck EKG for QT monitoring. Mohinder Johnson MD Section of Hospital Medicine [facility] * Kimani Rivas MD - 05/05/2025 3:02 PM EDT Images from the original note were not included. [facility] PSYCHIATRIC CONSULTATION FOLLOW-UP NOTE INTERVAL HPI: - Patient intermittently refusing feeds, medications - Seroquel PRNs used for agitation x 2 Patient appears anxious on interview. He initially asks this physician underwriter to leave because he feels he had been hurt before. Continues to be guarded regarding certain questions. With encouragement, elaborates that it is hard to trust people in his current state. He reports starting to read a new book andoffers literature recommendations including [employer] . He states he does not feel safe when he is alone. REVIEW OF SYSTEMS: As per HPI EXAM: 05/05/2025 12:06 PM Vital Signs Temperature 98.6 ??F (37 ??C) Heart Rate 92 Respiration 18 SpO2 96 % Blood Pressure 119/67 Neurological: Motor: mild tremor appreciated in hands b/l, spontaneous movements of extremities b/l Cognitive: Wakefulness/alertness: awake and alert Orientation: grossly oriented to person/place/situation Attention: Attentive to conversation Memory: Deferred Mental Status: Appearance: appears stated age, unkempt, in hospital gown Behavior: good eye contact, calm, slightly guarded Mood: worried Affect: constricted, stable, not irritable Speech: normal rate/soft Thought process: linear, grossly organized Thought content and perceptions: does not report SI/HI/AVH; mild paranoia regarding this physician underwriter/staff/answering questions Insight and judgment: limited/limited MEDICATIONS: Scheduled Meds:Scheduled Medications[1] Continuous Infusions:Infusions Meds[2] PRN Meds:.PRN Medications[3] DATA: Reviewed. Qtc: 512 (04/30/25). ASSESSMENT: Carter Raymundo is a 69 y.o. male with past psych history of schizoaffective disorder on clozapine,past medical history of hypertension, CKD, oropharyngeal dysphagia c/b frequent aspiration now s/p PEG, drug-induced Parkinsonism, who presented from nursing facility with altered mental status with unresponsiveness and aphasia, now medically cleared. Psychiatry initially consulted for assistance with diagnostic clarification, with initial differential ddx of catatonia vs delirium/encephalopathy vs decompensated psychosis. On evaluation today, patient presentation significant for ongoing paranoia, guarded behavior. Mostly adherent to medication regimen last few days. Cognition grossly intact to interview. Patient with successful bowel movement while on lowered clozapine dose, mentation stable. Continuing plan to uptitrate clozapine dose with close follow up. Patient presentation has been most consistent with acute delirium superimposed on known schizoaffective disorder. Catatonia is less likely given isolated symptom of mutism without muscle rigidity/waxy flexibility, and also the limited effect of benzodiazepines on clinical course. Of note, patient has missed a dose of Sinemet prior to one previous similar episode. Given ongoing work up of etiologybehind this episode of AMS, would continue on current decreased dose of clozapine. Continuing on home Wellbutrin, gabapentin, and trazodone. Brother reports at baseline patient is relatively high-functioning, pleasant, not overtly paranoid. Patient on section 12 due to inability to care for self and acute risk of psychiatric decompensation, bed search in progress. DSM-5 DIAGNOSIS: Schizoaffective disorder Delirium RECOMMENDATIONS: #LEGAL Patient remains on section 12, cannot leave AMA, bed search in progress Continue 1:1 sitter #MANAGEMENT Continue delirium precautions --> Emphasize strong diurnal cues including windows open during day, limit disruptions overnight, practice avoidance of deliriogenic drugs as possible, mobilize throughout the day as possible, optimize nutrition, ensure normal regular bowel movements, and treat pain to the extent possible Clozapine dosing: increase dose to 25mg qAM+100mg qHS Please continue efforts to ensure bowel movement while on clozapine Continue Wellbutrin 100 mg TID Continue gabapentin 100 mg BID Continue ramelteon 8 mg QHS Continue trazodone 150 mg QHS Can continue to offer Seroquel 50 mg PO TID PRN for anxiety, irritability, agitation Can give lorazepam 0.5mg IV/IM BID PRN second line for severe agitation Essential that patient has regular bowel movements while on clozapine Psychiatry will continue to follow Recommendations communicated to primary team. Kimani Rivas MD PGY2, Department of Psychiatry [id number] Case staffed with attending psychiatrist, Dr. Kymberly Mata. [1] atorvaSTATin, 20 mg, G-tube, QHS buPROPion, 100 mg, G-tube, TID carbidopa-levodopa, 2 tablet, G-tube, TID cloZAPine, 25 mg, G-tube, Daily cloZAPine, 75 mg, G-tube, QHS enoxaparin, 40 mg, Subcutaneous, Q24H CLAUDIA famotidine, 20 mg, G-tube, BID gabapentin, 100 mg, G-tube, BID gabapentin, 300 mg, G-tube, QHS lactulose, 20 g, Oral, BID lidocaine, 1 patch, Topical, Q24H multivitamin with minerals, 15 mL, Oral, Daily sodium chloride, 3 mL, Intravenous, Q12H CLAUDIA polyethylene glycol, 17 g, Oral, BID ramelteon, 8 mg, Oral, QHS sennosides, 17.6 mg, G-tube, BID tamsulosin, 0.4 mg, G-tube, QHS traZODone, 150 mg, G-tube, Nightly [2] [3] acetaminophen bisacodyl calcium carbonate guaiFENesin Insert and Maintain Peripheral IV AND sodium chloride AND sodium chloride QUEtiapine * Nicole Ramirez - 05/05/2025 7:48 AM EDT NUTRITION FOLLOW UP NOTE SUBJECTIVE: Interview deferred, per chart patient very agitated, refusing meds & minimally participative ininterview questions. 1:1 sitter observed in room w/ patient. Refuses meals or eats <25% of meals. OBJECTIVE: Height: 71 in Admit weight: 97.3 kg (bed, 04/16) Most recent weight: 75.8 kg (bed, 04/17) Pertinent Meds: famotidine, lactulose, liquid multivitamin w/ minerals, senna. Others noted. No labs taken -- last taken 04/30/25. Food Allergies: NKFA Diet Order: Pureed diet, thin liquids Tube Feed Order: Two Sundar HN @ 50 mL/hr x20 hrs (run from 1pm to 9am) (provides: 2000 kcal, 84 g protein, 700 mL free water). With 350 mL flushes q6h (+1400 mL). Total 2100 mL free water/day. Access Type: PEG GI/Abdomen: Abdomen distended, tender per flowsheets. LBM 05/04/25. Skin: Irritant contact dermatitis to sacrum per flowsheets. Drains: None. Extremities: No LE edema noted. Nutrition Focused Physical Exam: Deferred ASSESSMENT: Estimated Nutrition Needs: Calories: 5281-4037 kcal (25-30 kcal/kg) Protein: 85-106 g (1.2-1.5 g/kg) Fluids: 4797-3691 mL (25-30 mL/kg) Estimated Needs Calculated Usin.9 kg (156 lb 4.9 oz) (weight at rehab) Specifics: 69M w/ PMH significant for HTN, CKD, schizoaffective disorder, & drug-induced parkinsonism. Presented to [facility] on 04/15/25 w/ unresponsiveness, asphaia, & possible left facial droop. CT and MRI head r/o stroke, and TME workup negative. Admitted to medicine for monitoring & re-initation of clozapine dosing, now medically stable pending inpatient psych placement for decompensated schizoaf fective disorder. Course complicated by severe constipation. Nutrition following for tube feed management. No changes since last nutrition assessment, patient refusing PO intake & continues on cyclic tube feeds to provide 100% of nutrition needs. Continue current regimen as ordered. Of note, patient w/ severe constipation but refusing most interventions aside from bowel regimen -- continue to optimize bowel regimen as patient is amenable, can adjust increase free water flushes PRN though current free water flush order providing high-end of fluid needs. No updated weights & labs only being intermittently checked, will monitor PRN. Nutrition to follow for tube feed management. Interventions / Recommendations: Continue pureed diet as ordered, encourage any PO intake as patient becomes amenable. Continue tube feeds as ordered: Two Sundar HN @ 50 mL/hr x20 hrs (run from 1pm to 9am) (provides: 2000kcal, 84 g protein, 700 mL free water). With 350 mL flushes q6h (+1400 mL). Total 2100 mL free water/day. Adjust free water flushes PRN for Na/hydration/volume. Monitor lytes intermittently, address PRN. Continue bowel regimen for constipation symptoms. Monitor I's/O's, GI function, & BMs. Obtain new weight as able. Continue multivitamin w/ minerals. Nutrition to continue to follow, please message or page [phone] with any questions/concerns Signed by: Nicole Ramirez MS, RD, LDN 05/05/25 7:48 AM * Karrie Starks MD - 05/05/2025 6:54 AM EDT Images from the original note were not included. [facility] Department of Medicine [facility] Medicine Progress Note Patient: Carter Raymundo Admission Date: 04/15/2025 Length of Stay: 19 PCP: Kilo Huynh Attending: Mohinder Johnson MD Chief Complaint: Altered mental status OVERNIGHT EVENTS NAEON SUBJECTIVE Says he feels pain today but unable to localize where. Does not want any medications for the pain. No other concerns today. OBJECTIVE DATA VITALS T 97.9 ??F (36.6 ??C) HR (!) 100 BP 121/82 RR 20 SpO2 96 % O2 Device: None (Room air) 75.8 kg (167 lb 1.7 oz) Body mass index is 23.31 kg/m??. PHYSICAL EXAM GENERAL: NAD, resting in bed comfortably. HEENT: No scleral icterus, moist mucous membranes. CARDIAC: Clinically well perfused. Normal S1, S2. LUNG: Appears in no respiratory distress. No accessory muscle use. Lungs clear to auscultation bilaterally. ABD: Abdomen distended. No significant TTP. MSK: No focal joint swelling or deformities. NEURO: Opens eyes to voice. Follows commands. SKIN: No significant rashes, sores or wounds noted on exposed skin. PSYCH: Calm. Paranoid. LABS, MICROBIOLOGY and STUDIES reviewed in Epic. ASSESSMENT & PLAN Carter Raymundo is a 69 y.o. male with a relevant past medical history of HTN, CKD, schizoaffectivedisorder, and drug-induced parkinsonism, who presented with unresponsiveness, asphaia, and possibleleft facial droop. CT and MRI head r/o stroke, and TME workup negative. Transient hypoxia in ED without fever, leukocytosis, and any localizing signs and symptoms points toward potential aspiration pneumonitis. Patient admitted to medicine for monitoring and re- initation of clozapine dosing, now medically stable pending inpatient psych placement for decompensated schizoaffective disorder. Ccb severe constipation. ACTIVE ISSUES # Brief episode of unresponsiveness # Schizoaffective disorder Patient initially presenting with acute onset of unresponsiveness, aphasia, and concern for ?facialasymmetry. CTH w/o stroke. MRIb normal. Workup for toxic metabolic encephalopathy negative. Multiple EEGs with no evidence of seizures. Per chart reivew and brother's report patient's dose of clozapine has also been changed recently, but no other clear explanation for AMS. During admission, has hadmultiple triggers called for unresponsiveness (not true catatonia per psych) with no clear trigger.Labs from triggers thus far have all been unremarkable. - Spoke to Neuro: no clear neurologic explanation for episodes of unresponsiveness - Psych following, appreciate recs - C/h buproprion 100mg TID - Psych adjusting clozapine dosinmg qAM + 100mg qHS as of 05/05 - C/h trazodone 150mg qHs - Agitation PRNs: seroquel 50mg TID PRN (1st line), then 0.5mg PO/IV/IM ativan (2nd line) - Ramelteon 8 mg at bedtime - Per psych meets section 12 criteria, cannot leave AMA - CBC with diff 05/01 shows normal ANC, recheck weekly - Patient is medically clear for psych bed placement, will encourage to work with PT and get out ofbed as able #Productive cough Low c/f PNA based on reassuring CXR. Added guaifenesin PRN. - CXR 05/03 with new RUL consolidation c/f infiltrate - CBC with mild leukocytosis to 11 but unchaged from prior. Reassuring that patient has stable vitals and no significant change to cough. Deferring additional workup or antibiotics for now #Constipation Severe stool burden on KUB while on clozapine. - Bowel reg: scheduled Miralax, senna BID - Repeat KUB 04/30 with rectal stool ball - BM on 05/02 PM after mag citrate x 2, lactulose, suppository - Mag citrate ordered 05/05 given no BM since 05/02 # Dysphagia with G tube reliance Patient with history of oropharyngeal dysphagia. Pulled out G tube 04/19 AM - G tube replaced by IR on 04/19 PM, ok to use # Transient hypoxia # C/f aspiration pneumonitis Patient with episode of hypoxia in ED, quickly resolved without intervention. Patient with history of oropharyngeal dysphagia with G tube in place. Confirmed with Gemma Cain RN that patient is currently on pureed diet with SOLAR DESIGN ENGINEER at their facility following. High risk for aspiration and given transient nature suspect this was the driving etiology of hypoxia. CXR with unclear opacification, then obtained lateral view which showed some streakiness c/f atelectasis vs infection. Given lack of fevers, cough, and leukocytosis, low clinical suspicion for pneumonia and will defer Abx for now. - Continue pureed diet - Deferring [employer] DESIGN [employer] for now - Nutrition consulted, appreciate recs - Consider out pt sleep study - CXR with no infiltrates 04/22, 05/03 # Sinus Tachycardia Pt consistently tachycardic in 90s - low 100s during this hospitalization. EKG's to date all consistent with sinus tachycardia. CHRONIC / STABLE ISSUES # Drug-induced Parkinsonism - C/h sinemet # CAD # HTN - C/h statin [] TI: Consideration of ASA # CKD - Trending Cr, currently at baseline # BPH - C/h tamsulosin # GERD - C/h pepcid CORE MEASURES - FEN: IVF PRN, replenish electrolytes, Diet Modified Texture; Pureed; Thin Liquids; Deliver To Nursing, Finger Foods/No Utensils, No Sharps, Safety Tray - PAML complete - Functional Status: Independent without use of assistive devices for ambulation - DVT prophylaxis: SC low molecular weight heparin - Access: peripheral IV x1 - Code: Full Code - Contact: brother Lr, Patient Contacts Name Legal Rel Relationship Phone Active Delvin Raymundo Brothmarisa - Disposition: -- Anticipated discharge to: nursing home facility -- Anticipated discharge date: t+2 -- Anticipated discharge barriers: Completion of evaluation for altered mental status Extended Emergency Contact Information Primary Emergency Contact: Delvin Raymundo Mobile Relation: Brother Silver Solderer needed? No Karrie Starks MD ([facility]) Dept of Medicine Cosigned by Mohinder Johnson MD at 05/05/2025 3:59 PM EDT Associated attestation - Mohinder Johnson MD - 05/05/2025 3:59 PM EDT I have seen and examined Mr. Raymundo, reviewed the findings and plan of care as documented by Karrie Starks MD and agree, except for any additional comments below. Patient reported feeling he was better able to describe what is going on today, which is typically part of his process to recovery, so expressed some optimism about the direction of things. Working on bowel regimen and continuing to titrate clozapine per psychiatry recommendations. Mohinder Johnson MD Section of Hospital Medicine [facility] * Madelyn Bailey RN - 05/05/2025 12:43 AM EDT Pt alert declining to answer any questions, pt uncooperative with care, repeatedlly calling out in pain then when RN in room to assess will not respond to questions tylenol given, cont with tube feedas ordered, sitting in chair beginning of shift, several attempts to edge of chair transferred backinto bed 2 person assist; pt then able to sleep well t/o shift 1:1 sitter at bedside; pt incont large amount of urine overnight, no stool + flatus; this am pt pleasant and coop with care * Sara Chavis RN - 05/04/2025 11:58 PM EDT Pt alert Oriented to self Pt declined vs Sitting in chair all shift- pt refusing back to bed Uncooperative with med administration until later in evening rec'd meds crushed via PEG TF infusing 2calHN at goal 50cc/hr FWF 350 q 6 hr Pt very agitated most of evening Yelling out at times PIV intact/ PEG intact- dsg c/d/I Pt voided via urinal x 1 this shift 1:[address] Psych following * Kimani Rivas MD - 05/04/2025 10:40 AM EDT Images from the original note were not included. [facility] PSYCHIATRIC CONSULTATION FOLLOW-UP NOTE INTERVAL HPI: - Patient with successful large, soft BM yesterday - Seroquel PRNs used this morning for patient attempting to get out of bed, not able to be verballyredirected Patient appears calm and comfortable on interview. He states that he feels less paranoid today. Asks this physician underwriter to hold hand for reassurance. Reports feeling much better surprisingly fast . He states that he should be getting in contact with his brother soon. Guarded regarding certain questions. Denies SI/HI/AVH. REVIEW OF SYSTEMS: As per HPI EXAM: 05/04/2025 8:08 AM Vital Signs Temperature 98.4 ??F (36.9 ??C) Heart Rate 93 Respiration 18 SpO2 96 % Blood Pressure 154/91 Neurological: Motor: mild tremor appreciated in hands b/l, spontaneous movements of extremities b/l Cognitive: Wakefulness/alertness: awake and alert Orientation: grossly oriented to person/place/situation, states date as or 03 of May and declines to answer the year Attention: Attentive to conversation Memory: Deferred Mental Status: Appearance: appears stated age, unkempt, nude Behavior: good eye contact, calm, slightly guarded Mood: less paranoid Affect: constricted, stable, not irritable Speech: normal rate/soft Thought process: linear, grossly organized Thought content and perceptions: does not report SI/HI/AVH; mild paranoia regarding staff/answeringquestions Insight and judgment: limited/limited MEDICATIONS: Scheduled Meds:Scheduled Medications[1] Continuous Infusions:Infusions Meds[2] PRN Meds:.PRN Medications[3] DATA: Reviewed. Qtc: 512 (04/30/25). ASSESSMENT: Carter Raymundo is a 69 y.o. male with past psych history of schizoaffective disorder on clozapine,past medical history of hypertension, CKD, oropharyngeal dysphagia c/b frequent aspiration now s/p PEG, drug-induced Parkinsonism, who presented from nursing facility with altered mental status with unresponsiveness and aphasia, now medically cleared. Psychiatry initially consulted for assistance with diagnostic clarification, with initial differential ddx of catatonia vs delirium/encephalopathy vs decompensated psychosis. On evaluation today, patient presentation significant for paranoia, guarded behavior. Mostly adherent to medication regimen last few days. Patient with successful bowel movement while on lowered clozapine dose, mentation stable. Will plan to uptitrate clozapine dose as able. Patient presentation has been most consistent with acute delirium superimposed on known schizoaffective disorder. Catatonia is less likely given isolated symptom of mutism without muscle rigidity/waxy flexibility, and also the limited effect of benzodiazepines on clinical course. Of note, patient has missed a dose of Sinemet prior to one previous similar episode. Given ongoing work up of etiologybehind this episode of AMS, would continue on current decreased dose of clozapine. Continuing on home Wellbutrin, gabapentin, and trazodone. Brother reports at baseline patient is relatively high-functioning, pleasant, not overtly paranoid. Patient on section 12 due to inability to care for self and acute risk of psychiatric decompensation, bed search in progress. DSM-5 DIAGNOSIS: Schizoaffective disorder Delirium RECOMMENDATIONS: #LEGAL Patient remains on section 12, cannot leave AMA, bed search in progress Continue 1:1 sitter #MANAGEMENT Continue delirium precautions --> Emphasize strong diurnal cues including windows open during day, limit disruptions overnight, practice avoidance of deliriogenic drugs as possible, mobilize throughout the day as possible, optimize nutrition, ensure normal regular bowel movements, and treat pain to the extent possible Clozapine dosing: increase dose to 25mg qAM+75mg qHS Please continue efforts to ensure bowel movement while on clozapine Continue Wellbutrin 100 mg TID Continue gabapentin 100 mg BID Continue ramelteon 8 mg QHS Continue trazodone 150 mg QHS Can continue to offer Seroquel 50 mg PO TID PRN for anxiety, irritability, agitation Can give lorazepam 0.5mg IV/IM BID PRN second line for severe agitation Essential that patient has regular bowel movements while on clozapine Psychiatry will continue to follow Recommendations communicated to primary team. Kimani Rivas MD PGY2, Department of Psychiatry [id number] Case staffed with attending psychiatrist, Dr. Kymberly Mata. [1] atorvaSTATin, 20 mg, G-tube, QHS buPROPion, 100 mg, G-tube, TID carbidopa-levodopa, 2 tablet, G-tube, TID cloZAPine, 25 mg, G-tube, QHS cloZAPine, 25 mg, G-tube, Daily enoxaparin, 40 mg, Subcutaneous, Q24H CLAUDIA famotidine, 20 mg, G-tube, BID gabapentin, 100 mg, G-tube, BID gabapentin, 300 mg, G-tube, QHS lactulose, 20 g, Oral, BID multivitamin with minerals, 15 mL, Oral, Daily sodium chloride, 3 mL, Intravenous, Q12H CLAUDIA polyethylene glycol, 17 g, Oral, BID ramelteon, 8 mg, Oral, QHS sennosides, 17.6 mg, G-tube, BID tamsulosin, 0.4 mg, G-tube, QHS traZODone, 150 mg, G-tube, Nightly [2] [3] acetaminophen bisacodyl calcium carbonate guaiFENesin Insert and Maintain Peripheral IV AND sodium chloride AND sodium chloride QUEtiapine Cosigned by Kymberly Mata MD at 05/04/2025 9:35 PM EDT Associated attestation - Kymberly Mata MD - 05/04/2025 9:35 PM EDT I was present with the resident during the evans portions of the service. I discussed the case with the resident and agree with the findings and plan as documented in the resident's note with the following addendum: Pt seen in the afternoon. He is sitting up in the chair and asks me to leave the room. Becomes easily verbally agitated and does not engage in interview. No physical agitation or unsafe behaviors observed. 1:1 observer is at bedside and he tolerates her presence in the room. Clinical impression c/w schizoaffective disorder, currently decompensated. Reduced clozapine to 25mg BID over the weekend due to risks of severe constipation and pt declining treatment and disimpaction, pending affirmation of guardianship. Pt did accept medications and had a bowel movement yesterday. Given symptoms burden, recommend increasing clozapine back to 25mg qAM + 75mg qHS. Will plan to titrate dose up 25-50mg as tolerated. Target dose is 175mg by history if he is able to tolerate this. Pt now medically stable and meets criteria for section 12 for inability to care for himself safely in the community due to level of disorganization. Appreciate resumption of bed search for inpatient level of care. * Karrie Starks MD - 05/04/2025 6:57 AM EDT Images from the original note were not included. [facility] Department of Medicine [facility] Medicine Progress Note Patient: Carter Raymundo Admission Date: 04/15/2025 Length of Stay: 18 PCP: Kilo Huynh Attending: Mildred Srinivasan MD Chief Complaint: Altered mental status OVERNIGHT EVENTS NAEON SUBJECTIVE Reports he is feeling less paranoid today. No new pain or concerns. OBJECTIVE DATA VITALS T 98.2 ??F (36.8 ??C) HR 82 BP 116/76 RR 17 SpO2 97 % O2 Device: None (Room air) 75.8kg (167 lb 1.7 oz) Body mass index is 23.31 kg/m??. PHYSICAL EXAM GENERAL: NAD, resting in bed comfortably. HEENT: No scleral icterus, moist mucous membranes. CARDIAC: Clinically well perfused. Normal S1, S2. LUNG: Appears in no respiratory distress. No accessory muscle use. Lungs clear to auscultation bilaterally. ABD: Abdomen distended. No significant TTP. MSK: No focal joint swelling or deformities. NEURO: Opens eyes to voice. Follows commands. SKIN: No significant rashes, sores or wounds noted on exposed skin. PSYCH: Calm. Paranoid. LABS, MICROBIOLOGY and STUDIES reviewed in Epic. ASSESSMENT & PLAN Carter Raymundo is a 69 y.o. male with a relevant past medical history of HTN, CKD, schizoaffectivedisorder, and drug-induced parkinsonism, who presented with unresponsiveness, asphaia, and possibleleft facial droop. CT and MRI head r/o stroke, and TME workup negative. Transient hypoxia in ED without fever, leukocytosis, and any localizing signs and symptoms points toward potential aspiration pneumonitis. Patient admitted to medicine for monitoring and re- initation of clozapine dosing, now medically stable pending inpatient psych placement for decompensated schizoaffective disorder. Ccb severe constipation. ACTIVE ISSUES # Brief episode of unresponsiveness # Schizoaffective disorder Patient presented with acute onset of unresponsiveness and aphasia. Also concern for facial asymmetry, however, per chart review, this is chronic. Etiology of altered mental status unclear. Code stroke activated upon presentation, however, CT/CTA head and neck did not reveal any acute intracranial abnormalities. Initially given lorazepam for concern for catatonia. Patient became more responsive following this. Has not needed additional doses since then with no further signs of catatonia, so mayhave been an episode of transient catatonia. May have occurred in the setting of missed medication doses that morning. Per chart reivew and brother's report patient's dose of clozapine has also been c hanged recently. Work-up for toxic-metabolic encephalopathy has been negative. Pt had another episode of unresponsiveness on 04/22, see trigger note from that date. Another trigger called on 04/27 as above. Unclear etiology of repeated episodes of unresponsiveness, but wondering if it could be in the setting of missing medications, especially home Sinemet. - Labs from trigger 04/30 largely unremarkable thus far. Very slightly elevated d-dimer but low suspicion for PE at this time so will defer further workup for now - Repeat EEG started 04/30 - no evidence of seizures per Neuro so d/c'ed - If there are additional episodes of unresponsiveness, will consider Neuro consult in case missed Sinemet doses are contributing to his presentation - Psych following, appreciate recs. - C/h buproprion 100mg TID - C/h clozapine (doses recently changed, confirmed most recent dose with Gemma Cain): 125 mg atnight, 25 mg in the morning -- per Psych, adjusted to 25mg BID on 05/01 - C/h trazodone 150mg qHs - Agitation PRNs: seroquel 50mg TID PRN (1st line), then 0.5mg PO/IV/IM ativan (2nd line) - Ramelteon 8 mg at bedtime - d/c lorazapam (initially started due to c/f catatonia) - Per psych meets section 12 criteria, cannot leave AMA - CBC with diff 05/01 shows normal ANC, recheck weekly - Patient is medically clear for psych bed placement, will encourage to work with PT and get out ofbed as able - Ongoing consultation with legal team regarding invocation of HCP and potential guardianship givenongoing objection to medical treatment #Productive cough Low c/f PNA based on reassuring CXR. Added guaifenesin PRN. - CXR 05/03 with new RUL consolidation c/f infiltrate - CBC ordered, f/u to check for leukocytosis - Reassuring that patient has stable vitals and no significant change to cough. Deferring additional workup or antibiotics for now #Constipation Severe stool burden on KUB while on clozapine. - Bowel reg: scheduled Miralax, senna BID - Repeat KUB 04/30 with rectal stool ball - No BM after mag citrate x 1 on 04/30, x1 05/02. Added lactulose 20mg BID 05/02. Accepted suppository05/02 PM with subsequent large, soft BM. # Dysphagia with G tube reliance Patient with history of oropharyngeal dysphagia. Pulled out G tube 04/19 AM - G tube replaced by IR on 04/19 PM, ok to use # Transient hypoxia # C/f aspiration pneumonitis Patient with episode of hypoxia in ED, quickly resolved without intervention. Patient with history of oropharyngeal dysphagia with G tube in place. Confirmed with Gemma Cain RN that patient is currently on pureed diet with SOLAR DESIGN ENGINEER at their facility following. High risk for aspiration and given transient nature suspect this was the driving etiology of hypoxia. CXR with unclear opacification, then obtained lateral view which showed some streakiness c/f atelectasis vs infection. Given lack of fevers, cough, and leukocytosis, low clinical suspicion for pneumonia and will defer Abx for now. - Continue pureed diet - Deferring SOLAR DESIGN ENGINEER for now - Nutrition consulted, appreciate recs - Consider out pt sleep study - CXR with no infiltrates 04/22, 05/03 # Sinus Tachycardia Pt consistently tachycardic in 90s - low 100s during this hospitalization. EKG's to date all consistent with sinus tachycardia. CHRONIC / STABLE ISSUES # Drug-induced Parkinsonism - C/h sinemet # CAD # HTN - C/h statin [] TI: Consideration of ASA # CKD - Trending Cr, currently at baseline # BPH - C/h tamsulosin # GERD - C/h pepcid CORE MEASURES - FEN: IVF PRN, replenish electrolytes, Diet Modified Texture; Pureed; Thin Liquids; Deliver To Nursing, Finger Foods/No Utensils, No Sharps, Safety Tray - PAML complete - Functional Status: Independent without use of assistive devices for ambulation - DVT prophylaxis: SC low molecular weight heparin - Access: peripheral IV x1 - Code: Full Code - Contact: brother Lr, Patient Contacts Name Legal Rel Relationship Phone Active Delvin Raymundo Brothmarisa - Disposition: -- Anticipated discharge to: nursing home facility -- Anticipated discharge date: t+2 -- Anticipated discharge barriers: Completion of evaluation for altered mental status Extended Emergency Contact Information Primary Emergency Contact: Delvin aRymundo Mobile Relation: Brother Silver Solderer needed? No Karrie Starks MD ([facility]) Dept of Medicine Cosigned by Mohinder Johnson MD at 05/04/2025 3:18 PM EDT Associated attestation - Mohinder Johnson MD - 05/04/2025 3:18 PM EDT I have seen and examined Mr. Raymundo, reviewed the findings and plan of care as documented by Karrie Starks MD and agree, except for any additional comments below. Patient declined interview or exam with me today. Unclear if the small opacity on CXR yesterday reflects a new acute bacterial pneumonia. His cough is stable, and no significant changes in vitals. Will check CBC but hold off on abx for now unless there are concerning clinical features. Will consider repeat CXR in upcoming days to determine if there is any worsening. Not currently declining important medical interventions, so for now not pursuing affirmation of HCP. Mohinder Johnson MD Section of Hospital Medicine [facility] * Madelyn Bailey RN - 05/04/2025 5:27 AM EDT A+Ox3 cooperative with care this shift, cotn with 1:1 sitter at bedside, all meds given via peg, cont with tube feed at goal; abd round nt + bs all bowel meds given incont smear of stool, condom cathintact draining sl conc urine. Pt refusing t+r t/o night did allow x 1, heels elevated off bed on pillows, slept well t/o shift * Noe Ruiz MD - 05/03/2025 10:26 AM EDT Images from the original note were not included. [facility] Department of Medicine [facility] Medicine Progress Note Patient: Carter Raymundo Admission Date: 04/15/2025 Length of Stay: 17 PCP: Kilo Huynh Attending: Mildred Srinivasan MD Chief Complaint: Altered mental status OVERNIGHT EVENTS 12:26 AM told RN he is feeling the worst he has ever felt and he wants to kill himself. Has 1:1 sitter. Seen at bedside, determined to be at baseline mental status 1:06 AM Attempting to jump out of the bed, saying he is going to jump out of the window. QTc prolonged, giving 0.5 mg IV Ativan SUBJECTIVE Sleeping peacefully this morning. No acute complaints or concerns. Per RN report had a large, soft BM yesterday evening. OBJECTIVE DATA VITALS T 97.9 ??F (36.6 ??C) HR 79 BP 114/72 RR 17 SpO2 97 % O2 Device: None (Room air) 75.8kg (167 lb 1.7 oz) Body mass index is 23.31 kg/m??. PHYSICAL EXAM GENERAL: NAD, resting in bed comfortably. HEENT: No scleral icterus, moist mucous membranes. CARDIAC: Clinically well perfused. LUNG: Appears in no respiratory distress. No accessory muscle use. ABD: Abdomen distended. No significant TTP. MSK: No focal joint swelling or deformities. NEURO: Opens eyes to voice. Follows commands. SKIN: No significant rashes, sores or wounds noted on exposed skin. PSYCH: Calm. Paranoid. LABS, MICROBIOLOGY and STUDIES reviewed in Epic. ASSESSMENT & PLAN Carter Raymundo is a 69 y.o. male with a relevant past medical history of HTN, CKD, schizoaffectivedisorder, and drug-induced parkinsonism, who presented with unresponsiveness, asphaia, and possibleleft facial droop. CT and MRI head r/o stroke, and TME workup negative. Transient hypoxia in ED without fever, leukocytosis, and any localizing signs and symptoms points toward potential aspiration pneumonitis. Patient admitted to medicine for monitoring and re- initation of clozapine dosing, now medically stable pending inpatient psych placement for decompensated schizoaffective disorder. Ccb severe constipation. ACTIVE ISSUES # Brief episode of unresponsiveness # Schizoaffective disorder Patient presented with acute onset of unresponsiveness and aphasia. Also concern for facial asymmetry, however, per chart review, this is chronic. Etiology of altered mental status unclear. Code stroke activated upon presentation, however, CT/CTA head and neck did not reveal any acute intracranial abnormalities. Initially given lorazepam for concern for catatonia. Patient became more responsive following this. Has not needed additional doses since then with no further signs of catatonia, so mayhave been an episode of transient catatonia. May have occurred in the setting of missed medication doses that morning. Per chart reivew and brother's report patient's dose of clozapine has also been c hanged recently. Work-up for toxic-metabolic encephalopathy has been negative. Pt had another episode of unresponsiveness on 04/22, see trigger note from that date. Another trigger called on 7/7 as above. Unclear etiology of repeated episodes of unresponsiveness, but wondering if it could be in the setting of missing medications, especially home Sinemet. - Labs from trigger 04/30 largely unremarkable thus far. Very slightly elevated d-dimer but low suspicion for PE at this time so will defer further workup for now - Repeat EEG started 04/30 - no evidence of seizures per Neuro so d/c'ed - If there are additional episodes of unresponsiveness, will consider Neuro consult in case missed Sinemet doses are contributing to his presentation - Psych following, appreciate recs. - C/h buproprion 100mg TID - C/h clozapine (doses recently changed, confirmed most recent dose with Gemma Cain): 125 mg atnight, 25 mg in the morning -- per Psych, adjusted to 25mg BID on 05/01 - C/h trazodone 150mg qHs - Agitation PRNs: seroquel 50mg TID PRN (1st line), then 0.5mg PO/IV/IM ativan (2nd line) - Ramelteon 8 mg at bedtime - d/c lorazapam (initially started due to c/f catatonia) - Per psych meets section 12 criteria, cannot leave AMA - CBC with diff 05/01 shows normal ANC, recheck weekly - Patient is medically clear for psych bed placement, will encourage to work with PT and get out ofbed as able - Ongoing consultation with legal team regarding invocation of HCP and potential guardianship givenongoing objection to medical treatment #Constipation Severe stool burden on KUB while on clozapine. - Bowel reg: scheduled Miralax, senna BID - Repeat KUB 04/30 with rectal stool ball - No BM after mag citrate x 1 on 04/30, x1 05/02. Added lactulose 20mg BID 05/02. Accepted suppository05/02 PM with subsequent large, soft BM. # Dysphagia with G tube reliance Patient with history of oropharyngeal dysphagia. Pulled out G tube 04/19 AM - G tube replaced by IR on 04/19 PM, ok to use # Transient hypoxia # C/f aspiration pneumonitis Patient with episode of hypoxia in ED, quickly resolved without intervention. Patient with history of oropharyngeal dysphagia with G tube in place. Confirmed with Gemma Cain RN that patient is currently on pureed diet with SOLAR DESIGN ENGINEER at their facility following. High risk for aspiration and given transient nature suspect this was the driving etiology of hypoxia. CXR with unclear opacification, then obtained lateral view which showed some streakiness c/f atelectasis vs infection. Given lack of fevers, cough, and leukocytosis, low clinical suspicion for pneumonia and will defer Abx for now. - Continue pureed diet - Deferring SOLAR DESIGN ENGINEER for now - Nutrition consulted, appreciate recs - Consider out pt sleep study - CXR with no infiltrates 04/22, 05/03 # Sinus Tachycardia Pt consistently tachycardic in 90s - low 100s during this hospitalization. EKG's to date all consistent with sinus tachycardia. #Productive cough Low c/f PNA based on reassuring CXR. Added guaifenesin PRN. CHRONIC / STABLE ISSUES # Drug-induced Parkinsonism - C/h sinemet # CAD # HTN - C/h statin [] TI: Consideration of ASA # CKD - Trending Cr, currently at baseline # BPH - C/h tamsulosin # GERD - C/h pepcid CORE MEASURES - FEN: IVF PRN, replenish electrolytes, Diet Modified Texture; Pureed; Thin Liquids; Deliver To Nursing, Finger Foods/No Utensils, No Sharps, Safety Tray - PAML complete - Functional Status: Independent without use of assistive devices for ambulation - DVT prophylaxis: SC low molecular weight heparin - Access: peripheral IV x1 - Code: Full Code - Contact: brother Lr, Patient Contacts Name Legal Rel Relationship Phone Active Delvin Raymundo Brothmarisa - Disposition: -- Anticipated discharge to: nursing home facility -- Anticipated discharge date: t+2 -- Anticipated discharge barriers: Completion of evaluation for altered mental status Extended Emergency Contact Information Primary Emergency Contact: Delvin Raymundo Mobile Relation: Brother Silver Solderer needed? No Noe Ruiz MD Dept of Medicine Cosigned by Mildred Srinivasan MD at 05/03/2025 5:27 PM EDT Associated attestation - Mildred Srinivasan MD - 05/03/2025 5:27 PM EDT I have seen and examined Mr. Raymundo, reviewed the findings and plan of care as documented by MD Dio and agree, except for any additional comments below. - Patient received IV Ativan overnight for agitation. - He has been accepting his psych meds and bowel meds. Additionally he accepted a suppository. He had a large soft bowel movement last night. - Now medically clear for discharge to inpatient psych. Dispo: Inpatient psych pending placement A total of of [] 25 minutes [] 35 minutes [x] greater than 50 minutes was spent personally by me onencounter today, including but not limited to review of data in electronic medical record, [id number] evaluation, documentation, and coordination of care. Mildred Srinivasan MD Section of Hospital Medicine [facility] * Ebony Oneill MD - 05/02/2025 5:30 PM EDT [facility] PSYCHIATRIC CONSULTATION FOLLOW-UP NOTE CHIEF COMPLAINT: I am doing well all things considered INTERVAL HPI: Team reached out this morning due to patient begging to be seen by psych today for anxiety/desperation prior to allowing us to physically examine him . The patient remained calm during the day, accepting medications, eventually more amenable to engage in care, though still somewhat paranoid. He has not had a BM yet but accepting lactulose and Magnesium citrate. Received Seroquel PRN X3. Reviewed nursing notes, primary team progress note, and most recent psychiatry follow up note. Per nursing note, the patient has been refusing care at times but redirectable. Has made some paranoid statements: I know for certain if I go to sleep I am going to be killed. Per primary team, patient does not believe he is constipated and has been refusing enemas, manual disimpaction, and suppositories. He has accepted lactulose and magnesium citrate. It appears patient does not qualify for emergency affirmation of HCP but team will continue to pursue this through regul ar process. On interview, the patient responds he is all things considered, doing well . The patient is unableto explain why he is in the hospital or what he is being treated for. He initially engages in cognitive exam but suddenly stops, stating that TW needs to go and he needs to be alone. Refuses to answer further questions, ending interview prematurely. Reviewed most recent results: Abd XR: Notable for severe stool burden with rectal stool ball not substantially changed from previous x-rays. No pneumoperitoneum noted. Gastrostomy tube in place EEG 05/01: Abnormal EEG due to intermittent background 5-7 Hz theta slowing while awake MSE Patient appears stated age, in hospital gown. He is calm with good eye contact, initially cooperative but later refuses to engage in further interview for unclear reasons. Reports his mood is good ,with a constricted, mildly irritable affect. His speech is of normal rate and soft volume. His thought process is hard to follow, somewhat disorganized. He does not report SI/HI/AVH, does not respondto questions about feeling safe in the hospital. Insight and judgment appear limited. Cognitive The patient is alert and awake, oriented to place and time, but not situation. Recites MOTYB until May, then is unable to continue. When asked to perform Luria test, patient refuses to attempt, and refuses to engage in any further questions or formal assessment. ASSESSMENT: Carter Raymundo is a 69 y.o. male with past psych history of schizoaffective disorder on clozapine,past medical history of hypertension, CKD, oropharyngeal dysphagia c/b frequent aspiration now s/p PEG, drug-induced Parkinsonism, who presented from nursing facility with altered mental status with unresponsiveness and aphasia, now medically cleared. Psychiatry initially consulted for assistance with diagnostic clarification, with initial differential ddx of catatonia vs delirium/encephalopathy vs decompensated psychosis. Throughout his hospitalization, the patient has been paranoid, with delusional content, with intermittent episodes of altered mental status and disorientation. Has been constipated on clozapine, withsignificant stool burden on abdominal x- ray. The patient has been frequently refusing care and has not shown understanding of his condition, found not to have capacity with HCP affirmation ongoing. Team today reached out for further medication recommendations given patient was refusing care and asking to see psychiatry. The patient did become more redirectable during the day, eventually acceptingsome care. There were no episodes of acute agitation requiring PRNs or restraints. On evaluation today, the patient is initially cooperative but vague, unable to explain why he is inthe hospital or what care he is receiving. Interview is terminated prematurely when patient suddenly decides he does not want to continue answering questions. Does not endorse SI or HI but does appear paranoid towards TW at the end of the interview. He is inattentive on cognitive exam, does not perform Luria test though it is unclear if this is due to lack of effort. Presentation today is consistent with acute delirium superimposed known schizoaffective disorder. The patient has been in behavioral control throughout the day with no acute events requiring restraints, appears to be delirious, and remains constipated. Will refrain from increasing clozapine dose despite paranoid symptoms to prevent worsening constipation or altered mental status from increased anticholinergic burden. Per conversation with the primary team later in the day, will recommend to continue current regimen and continue to observe patient for any episodes of behavioral dysregulation. Emphasized the importance of maintaining delirium precautions as below in treating underlying medical conditions. Seroquel should be offered first-line in the setting of agitation or anxiety, but if patient is refusing p.o. medications or is not responding to the Seroquel, would recommend IM Ativan as needed as below. Would emphasize the risk of worsening delirium with benzodiazepines, therefore would use IM Ativan sparingly and only in the setting of severe agitation that is not redirectable and placing the patient or others in danger. DSM-5 DIAGNOSIS: Schizoaffective Disorder Delirium RECOMMENDATIONS: Would continue current medication regimen; would refrain from increasing clozapine dose given risk of worsening anticholinergic burden and ongoing constipation. Continue aggressive bowel regimen For agitation/anxiety/irritability would offer Seroquel 50 mg PO TID PRN (first line) Lorazepam 0.5 mg PO/IM BID PRN (second line) Continue delirium precautions: Emphasize strong diurnal cues including windows open during day, limit disruptions overnight, practice avoidance of deliriogenic drugs as possible, mobilize throughout the day as possible, optimize nutrition, ensure normal regular bowel movements, and treat pain to the extent possible Psychiatry will continue to follow [facility] psychiatry attending Dr. Saavedra. Plan conveyed to primary team. Ebony Oneill MD [facility] Psychiatry- PGY3 * Karrie Starks MD - 05/02/2025 6:47 AM EDT Images from the original note were not included. [facility] Department of Medicine [facility] Medicine Progress Note Patient: Carter Raymundo Admission Date: 04/15/2025 Length of Stay: 16 PCP: Kilo Huynh Attending: Mildred Srinivasan MD Chief Complaint: Altered mental status OVERNIGHT EVENTS 2:00 AM accepted meds and mag citrate SUBJECTIVE Not in any pain this morning. Does not think he needs to have a BM. Does not want to speak to or see his brother because he says he was tortured by him. OBJECTIVE DATA VITALS T 98.4 ??F (36.9 ??C) HR (!) 96 BP (!) 154/91 RR 16 SpO2 98 % O2 Device: None (Room air) 75.8 kg (167 lb 1.7 oz) Body mass index is 23.31 kg/m??. PHYSICAL EXAM GENERAL: NAD, resting in bed comfortably. HEENT: No scleral icterus, moist mucous membranes. CARDIAC: Clinically well perfused. LUNG: Appears in no respiratory distress. No accessory muscle use. ABD: Abdomen distended. No significant TTP. MSK: No focal joint swelling or deformities. NEURO: Opens eyes to voice. Follows commands. SKIN: No significant rashes, sores or wounds noted on exposed skin. PSYCH: Calm. Paranoid. LABS, MICROBIOLOGY and STUDIES reviewed in Epic. ASSESSMENT & PLAN Carter Raymundo is a 69 y.o. male with a relevant past medical history of HTN, CKD, schizoaffectivedisorder, and drug-induced parkinsonism, who presented with unresponsiveness, asphaia, and possibleleft facial droop. CT and MRI head r/o stroke, and TME workup negative. Transient hypoxia in ED without fever, leukocytosis, and any localizing signs and symptoms points toward potential aspiration pneumonitis. Patient admitted to medicine for monitoring and re- initation of clozapine dosing, now medically stable pending inpatient psych placement for decompensated schizoaffective disorder. ACTIVE ISSUES # Brief episode of unresponsiveness # Schizoaffective disorder Patient presented with acute onset of unresponsiveness and aphasia. Also concern for facial asymmetry, however, per chart review, this is chronic. Etiology of altered mental status unclear. Code stroke activated upon presentation, however, CT/CTA head and neck did not reveal any acute intracranial abnormalities. Initially given lorazepam for concern for catatonia. Patient became more responsive following this. Has not needed additional doses since then with no further signs of catatonia, so mayhave been an episode of transient catatonia. May have occurred in the setting of missed medication doses that morning. Per chart reivew and brother's report patient's dose of clozapine has also been c hanged recently. Work-up for toxic-metabolic encephalopathy has been negative. Pt had another episode of unresponsiveness on 04/22, see trigger note from that date. Another trigger called on 04/27 as above. Unclear etiology of repeated episodes of unresponsiveness, but wondering if it could be in the setting of missing medications, especially home Sinemet. - Labs from trigger 04/30 largely unremarkable thus far. Very slightly elevated d-dimer but low suspicion for PE at this time so will defer further workup for now - Repeat EEG started 04/30 - no evidence of seizures per Neuro so d/c'ed - If there are additional episodes of unresponsiveness, will consider Neuro consult in case missed Sinemet doses are contributing to his presentation - Psych following, appreciate recs. - C/h buproprion 100mg TID - C/h clozapine (doses recently changed, confirmed most recent dose with Gemma Cain): 125 mg atnight, 25 mg in the morning -- per Psych, adjusted to 25mg BID on 05/01 - C/h trazodone 150mg qHs; added 12.5mg BID PRN for anxiety and irritability - Ramelteon 8 mg at bedtime - Hydroxizine 75 mg prn, Seroquel 50 mg prn - d/c lorazapam (initially started due to c/f catatonia) - Per psych meets section 12 criteria, cannot leave AMA - CBC with diff shows normal ANC - Patient is medically clear for psych bed placement, will encourage to work with PT and get out ofbed as able - Ongoing consultation with legal team regarding invocation of HCP and potential guardianship givenongoing objection to medical treatment #Constipation Severe stool burden on KUB while on clozapine. - Bowel reg: scheduled Miralax, senna BID - Repeat KUB 04/30 with rectal stool ball - No BM after mag citrate x 1 on 04/30. Received mag citrate overnight on 05/02. Added lactulose on 05/02. # Dysphagia with G tube reliance Patient with history of oropharyngeal dysphagia. Pulled out G tube 04/19 AM - G tube replaced by IR on 04/19 PM, ok to use # Transient hypoxia # C/f aspiration pneumonitis Patient with episode of hypoxia in ED, quickly resolved without intervention. Patient with history of oropharyngeal dysphagia with G tube in place. Confirmed with Gemma Cain RN that patient is currently on pureed diet with SOLAR DESIGN ENGINEER at their facility following. High risk for aspiration and given transient nature suspect this was the driving etiology of hypoxia. CXR with unclear opacification, then obtained lateral view which showed some streakiness c/f atelectasis vs infection. Given lack of fevers, cough, and leukocytosis, low clinical suspicion for pneumonia and will defer Abx for now. - Continue pureed diet - Deferring SOLAR DESIGN ENGINEER for now - Nutrition consulted, appreciate recs - Consider out pt sleep study - CXR with no infiltrates 04/22 # Sinus Tachycardia Pt consistently tachycardic in 90s - low 100s during this hospitalization. EKG's to date all consistent with sinus tachycardia. #Productive cough Low c/f PNA. Added guaifenesin PRN. CHRONIC / STABLE ISSUES # Drug-induced Parkinsonism - C/h sinemet # CAD # HTN - C/h statin [] TI: Consideration of ASA # CKD - Trending Cr, currently at baseline # BPH - C/h tamsulosin # GERD - C/h pepcid CORE MEASURES - FEN: IVF PRN, replenish electrolytes, Diet Modified Texture; Pureed; Thin Liquids; Deliver To Nursing, Finger Foods/No Utensils, No Sharps, Safety Tray - PAML complete - Functional Status: Independent without use of assistive devices for ambulation - DVT prophylaxis: SC low molecular weight heparin - Access: peripheral IV x1 - Code: Full Code - Contact: brother Lr, Patient Contacts Name Legal Rel Relationship Phone Active Delvin Raymundo Brothmarisa - Disposition: -- Anticipated discharge to: nursing home facility -- Anticipated discharge date: t+2 -- Anticipated discharge barriers: Completion of evaluation for altered mental status Extended Emergency Contact Information Primary Emergency Contact: Delvin Raymundo Mobile Relation: Brother Silver Solderer needed? No Karrie Starks MD ([place]) Dept of Medicine Cosigned by Mildred Srinivasan MD at 05/02/2025 2:17 PM EDT Associated attestation - Mildred Srinivasan MD - 05/02/2025 2:17 PM EDT I have seen and examined Mr. Raymundo, reviewed the findings and plan of care as documented by Karrie Starks MD and agree, except for any additional comments below. Patient has still not had a bowel movement. Has been accepting some meds today. Does not believe heis constipated or has a large stool burden on KUB. He refuses enemas, manual disimpaction, and suppositories. Per legal he does not quality for emergency affirmation of HCP. Will likely need to pursue affirmation of HCP (SW/legal team arranging this) and in the meantime will offer meds and try to get him to accept. Dispo: Inpatient psych pending improvement in constipation A total of of [] 25 minutes [] 35 minutes [x] greater than 50 minutes was spent personally by me onencounter today, including but not limited to review of data in electronic medical record, [id number] evaluation, documentation, and coordination of care. Mildred Srinivasan MD Section of Hospital Medicine [facility] * Kimani Rivas MD - 05/01/2025 4:23 PM EDT Images from the original note were not included. [facility] PSYCHIATRIC CONSULTATION FOLLOW-UP NOTE INTERVAL HPI: - Patient declining tube feeds; medications - No PRNs used overnight - Patient with additional episode of unresponsiveness early this AM, Patient appears calm, awake, alert on interview. He requires significant encouragement to engage with questions and intermittently asks this physician underwriter to leave. He reports feeling fine with no paranoia.He denies somatic symptoms including abdominal pain, constipation. When asked about bowel movementshe states I don't wanna talk about this anymore . When discussing recent KUB findings he reports that it is not true . He reports he hasn't talked to his brother in some time but they have a good relationship. He states this physician underwriter is a robot . He ends interview prematurely with refusal to elaborate on questions. REVIEW OF SYSTEMS: As per HPI EXAM: 05/01/2025 3:24 PM Vital Signs Temperature 98.1 ??F (36.7 ??C) Heart Rate 100 Respiration 16 SpO2 95 % Blood Pressure 154/91 Neurological: Motor: mild tremor appreciated in hands b/l, spontaneous movements of extremities b/l Cognitive: Wakefulness/alertness: awake and alert Orientation: grossly oriented to person/place/situation Attention: Attentive to conversation Memory: Deferred Mental Status: Appearance: appears stated age, unkempt, in hospital gown Behavior: good eye contact, calm, mostly uncooperative Mood: fine Affect: constricted, stable, mildly irritable Speech: normal rate/soft Thought process: linear, grossly organized Thought content and perceptions: does not report SI/HI/AVH; paranoia regarding staff/interventions,states this physician underwriter is a robot , denies being constipated Insight and judgment: limited/limited MEDICATIONS: Scheduled Meds:Scheduled Medications[1] Continuous Infusions:Infusions Meds[2] PRN Meds:.PRN Medications[3] DATA: Reviewed. Qtc: 512 (04/30/25). ASSESSMENT: Carter Raymundo is a 69 y.o. male with past psych history of schizoaffective disorder on clozapine,past medical history of hypertension, CKD, oropharyngeal dysphagia c/b frequent aspiration now s/p PEG, drug-induced Parkinsonism, who presented from nursing facility with altered mental status with unresponsiveness and aphasia, now medically cleared. Psychiatry initially consulted for assistance with diagnostic clarification, with initial differential ddx of catatonia vs delirium/encephalopathy vs decompensated psychosis. On evaluation today, patient presentation significant for paranoia, delusional content. Ongoing intermittent episodes of AMS, likely delirium. Mostly adherent to medication regimen last few days. Patient notably constipated on clozapine as confirmed on imaging; patient denies and refusing recommended interventions. Patient does not have capacity to refuse interventions as evidenced by inability to understand and appreciate information provided, but may be difficult practically to intervene against his objection. Would consult with legal team to discuss next possible steps. Etiology of episodic AMS still unclear. Differential includes delirium vs catatonia. Patient appears obtunded during these episodes, is aphasic, is not responsive to noxious stimuli. No motor symptoms commonly observed in catatonia as described above. Acute intracranial abnormalities have been ruled out. Medication dosing has been inconsistent which may also be contributory. Patient has been tachycardic but other vitals stable; leukocytosis resolved. Repeat abdominal x-ray (04/21) demonstrates severe colonic stool burden with large rectal stool ball. Repeat EEG negative for seizure, demonstrates abnormal intermittent theta slowing while awake. Both clozapine and bupropion may lower seizure thr eshold. Would continue to prioritize improvements in sleep, regular bowel movements as both sleep deprivation and constipation can worsen mental status. Appreciate neurology involvement to comment onrule out of primary neurological etiology. Patient presentation has been most consistent with acute delirium superimposed on known schizoaffective disorder. Catatonia is less likely given isolated symptom of mutism without muscle rigidity/waxy flexibility, and also the limited effect of benzodiazepines on clinical course. Of note, patient has missed a dose of Sinemet prior to one previous similar episode. Given ongoing work up of etiologybehind this episode of AMS, would continue on current decreased dose of clozapine. Continuing on home Wellbutrin, gabapentin, and trazodone. Brother reports at baseline patient is relatively high-functioning, pleasant, not overtly paranoid. Patient on section 12 due to inability to care for self and acute risk of psychiatric decompensation, bed search in progress. DSM-5 DIAGNOSIS: Schizoaffective disorder Delirium RECOMMENDATIONS: #LEGAL Patient remains on section 12, cannot leave AMA, bed search in progress Continue 1:1 sitter #MANAGEMENT Continue delirium precautions --> Emphasize strong diurnal cues including windows open during day, limit disruptions overnight, practice avoidance of deliriogenic drugs as possible, mobilize throughout the day as possible, optimize nutrition, ensure normal regular bowel movements, and treat pain to the extent possible Please reduce clozapine dosing to 25mg BID due to anticholinergic burden Please continue efforts to ensure bowel movement while on clozapine Follow up consultation with legal team regarding invocation of HCP, potential medical treatment over objection Continue Wellbutrin 100 mg TID Continue gabapentin 100 mg BID Continue ramelteon 8 mg QHS Continue trazodone 150 mg QHS Can continue to offer Seroquel 50 mg TID PRN for anxiety, irritability, agitation Essential that patient has regular bowel movements while on clozapine Psychiatry will continue to follow Recommendations communicated to primary team. Kimani Rivas MD PGY2, Department of Psychiatry [id number] Discussed with attending psychiatrist, Dr. Kymberly Mata. [1] atorvaSTATin, 20 mg, G-tube, QHS buPROPion, 100 mg, G-tube, TID carbidopa-levodopa, 2 tablet, G-tube, TID cloZAPine, 25 mg, G-tube, QHS [START ON 05/02/2025] cloZAPine, 25 mg, G-tube, Daily enoxaparin, 40 mg, Subcutaneous, Q24H CLAUDIA famotidine, 20 mg, G-tube, BID gabapentin, 100 mg, G-tube, BID gabapentin, 300 mg, G-tube, QHS magnesium citrate, 296 mL, G-tube, Once multivitamin with minerals, 15 mL, Oral, Daily sodium chloride, 3 mL, Intravenous, Q12H CLAUDIA polyethylene glycol, 17 g, Oral, BID ramelteon, 8 mg, Oral, QHS sennosides, 17.6 mg, G-tube, BID tamsulosin, 0.4 mg, G-tube, QHS traZODone, 150 mg, G-tube, Nightly [2] [3] acetaminophen calcium carbonate guaiFENesin Insert and Maintain Peripheral IV AND sodium chloride AND sodium chloride QUEtiapine * Karrie Starks MD - 05/01/2025 6:48 AM EDT Images from the original note were not included. [facility] Department of Medicine [facility] Medicine Progress Note Patient: Carter Raymundo Admission Date: 04/15/2025 Length of Stay: 15 PCP: Kilo Huynh Attending: Mildred Srinivasan MD Chief Complaint: Altered mental status OVERNIGHT EVENTS 6:19 AM: another episode of being less responsive/almost catatonic. Vitals stable. No concern aboutEEG activity thus far. SUBJECTIVE Not talkative this AM. Opens eyes to voice. Shakes head to deny pain. OBJECTIVE DATA VITALS T 97.7 ??F (36.5 ??C) HR 86 BP 122/80 RR 16 SpO2 97 % O2 Device: None (Room air) 75.8kg (167 lb 1.7 oz) Body mass index is 23.31 kg/m??. PHYSICAL EXAM GENERAL: NAD, resting in bed comfortably. HEENT: No scleral icterus, moist mucous membranes. CARDIAC: Clinically well perfused. LUNG: Appears in no respiratory distress. No accessory muscle use. ABD: Abdomen distended. No significant TTP. MSK: No focal joint swelling or deformities. NEURO: Opens eyes to voice. Follows commands. SKIN: No significant rashes, sores or wounds noted on exposed skin. PSYCH: Calm. Paranoid. LABS, MICROBIOLOGY and STUDIES reviewed in Epic. ASSESSMENT & PLAN Carter Raymundo is a 69 y.o. male with a relevant past medical history of HTN, CKD, schizoaffectivedisorder, and drug-induced parkinsonism, who presented with unresponsiveness, asphaia, and possibleleft facial droop. CT and MRI head r/o stroke, and TME workup negative. Transient hypoxia in ED without fever, leukocytosis, and any localizing signs and symptoms points toward potential aspiration pneumonitis. Patient admitted to medicine for monitoring and re- initation of clozapine dosing, now medically stable pending inpatient psych placement for decompensated schizoaffective disorder. ACTIVE ISSUES # Brief episode of unresponsiveness # Schizoaffective disorder Patient presented with acute onset of unresponsiveness and aphasia. Also concern for facial asymmetry, however, per chart review, this is chronic. Etiology of altered mental status unclear. Code stroke activated upon presentation, however, CT/CTA head and neck did not reveal any acute intracranial abnormalities. Initially given lorazepam for concern for catatonia. Patient became more responsive following this. Has not needed additional doses since then with no further signs of catatonia, so mayhave been an episode of transient catatonia. May have occurred in the setting of missed medication doses that morning. Per chart reivew and brother's report patient's dose of clozapine has also been c hanged recently. Work-up for toxic-metabolic encephalopathy has been negative. Pt had another episode of unresponsiveness on 04/22, see trigger note from that date. Another trigger called on 04/27 as above. Unclear etiology of repeated episodes of unresponsiveness, but wondering if it could be in the setting of missing medications, especially home Sinemet. - Labs from trigger 04/30 largely unremarkable thus far. Very slightly elevated d-dimer but low suspicion for PE at this time so will defer further workup for now - Repeat EEG started 04/30 - no evidence of seizures per Neuro so d/c'ed - If there are additional episodes of unresponsiveness, will consider Neuro consult in case missed Sinemet doses are contributing to his presentation - Psych following, appreciate recs. - C/h buproprion 100mg TID - C/h clozapine (doses recently changed, confirmed most recent dose with Gemma Cain): 125 mg atnight, 25 mg in the morning -- per Psych, adjusted to 25mg qAM, 100 mg qPM (w/ afternoon meds), 25mg QHS so that patient is able to get more of his medications. - C/h trazodone 150mg qHs; added 12.5mg BID PRN for anxiety and irritability - Ramelteon 8 mg at bedtime - Hydroxizine 75 mg prn, Seroquel 50 mg prn - d/c lorazapam (initially started due to c/f catatonia) - Per psych meets section 12 criteria, cannot leave AMA - CBC with diff shows normal ANC - Patient is medically clear for psych bed placement, will encourage to work with PT and get out ofbed as able - Updated brother (HCP) on patient refusing meds. Deferring guardianship discussion for now as the goal is to get patient to inpatient psych #Constipation Severe stool burden on KUB while on clozapine. - Bowel reg: scheduled Miralax, senna BID - Repeat KUB 04/30 with rectal stool ball - No BM after mag citrate x 1 on 04/30. Will try for enema or manual disimpaction today. # Dysphagia with G tube reliance Patient with history of oropharyngeal dysphagia. Pulled out G tube 04/19 AM - G tube replaced by IR on 04/19 PM, ok to use # Transient hypoxia # C/f aspiration pneumonitis Patient with episode of hypoxia in ED, quickly resolved without intervention. Patient with history of oropharyngeal dysphagia with G tube in place. Confirmed with Gemma Cain RN that patient is currently on pureed diet with SOLAR DESIGN ENGINEER at their facility following. High risk for aspiration and given transient nature suspect this was the driving etiology of hypoxia. CXR with unclear opacification, then obtained lateral view which showed some streakiness c/f atelectasis vs infection. Given lack of fevers, cough, and leukocytosis, low clinical suspicion for pneumonia and will defer Abx for now. - Continue pureed diet - Deferring [employer] for now - Nutrition consulted, appreciate recs - Consider out pt sleep study - CXR with no infiltrates 04/22 # Sinus Tachycardia Pt consistently tachycardic in 90s - low 100s during this hospitalization. EKG's to date all consistent with sinus tachycardia. #Productive cough Low c/f PNA. Added guaifenesin PRN. CHRONIC / STABLE ISSUES # Drug-induced Parkinsonism - C/h sinemet # CAD # HTN - C/h statin [] TI: Consideration of ASA # CKD - Trending Cr, currently at baseline # BPH - C/h tamsulosin # GERD - C/h pepcid CORE MEASURES - FEN: IVF PRN, replenish electrolytes, Diet Modified Texture; Pureed; Thin Liquids; Deliver To Nursing, Finger Foods/No Utensils, No Sharps, Safety Tray - PAML complete - Functional Status: Independent without use of assistive devices for ambulation - DVT prophylaxis: SC low molecular weight heparin - Access: peripheral IV x1 - Code: Full Code - Contact: brother Lr, Patient Contacts Name Legal Rel Relationship Phone Active Delvin Raymundo Brothmarisa - Disposition: -- Anticipated discharge to: nursing home facility -- Anticipated discharge date: t+2 -- Anticipated discharge barriers: Completion of evaluation for altered mental status Extended Emergency Contact Information Primary Emergency Contact: Delvin Raymundo Mobile Relation: Brother Silver Solderer needed? No Karrie Starks MD ([place]) Dept of Medicine Cosigned by Mildred Srinivasan MD at 05/01/2025 2:09 PM EDT Associated attestation - Mildred Srinivasan MD - 05/01/2025 2:09 PM EDT I have seen and examined Mr. Sterne, reviewed the findings and plan of care as documented by Karrie Starks MD and agree, except for any additional comments below. Patient is stable with continued intermittent episodes of unreponsiveness. Discussed with neuro yesterday. They think these are likely functional. EEG without evidence of seizure activity so will discontinue EEG today. Otherwise he has large stool burden and possibly a rectal stool ball on KUB. He is currently not agreeable to manual disimpaction or enema or suppository. He does not believe that he is constipated despite being told he has large stool burden on imaging. For now will continue with aggressive bowel regimen through PEG. Dispo: Inpatient psych pending improvement in constipation A total of of [] 25 minutes [] 35 minutes [x] greater than 50 minutes was spent personally by me onencounter today, including but not limited to review of data in electronic medical record, [id number] evaluation, documentation, and coordination of care. Mildred Srinivasan MD Section of Hospital Medicine [facility] * Kimani Rivas MD - 04/30/2025 9:45 AM EDT Images from the original note were not included. [facility] PSYCHIATRIC CONSULTATION FOLLOW-UP NOTE INTERVAL HPI: - Patient accepting all medications - Seroquel PRN for anxiety/agitation/paranoia given ~4am + ~10am yesterday 04/29 Seen patient this morning during trigger for AMS. Patient not responding to name call, not following commands. Presentation similar to previous observed episodes. Vitals stable. Glucose 143. Later on re-examination in the afternoon with attending Dr. Kymberly Mata, patient is alert and conversational. He expresses desire to remove the net on my head , referring to EEG leads. He reports feeling better and that this morning he intentionally did that referring to his episode of AMS, butdoes not clearly elaborate on why. He states he has been sleeping 5 hours overnight. He reports concern that people have been coming in to hurt me and that they were Trump supporters . He cannot elaborate on if he felt safe in the hospital but feels safe at this time. He denies SI. He then said he felt this physician underwriter and attending were fake but he was not sure. He ended conversation prematurelydue to fatigue. Collateral: Delvin Raymundo (brother) - [phone] He reports he came to visit brother this past Sunday, patient has otherwise not been calling him on the phone as usual. Was generally encouraged since patient was talkative, was paranoid but insightful regarding his own paranoia. Later in the day patient seemed to be getting more paranoid as the evening went on, thought staff had bad intentions. At baseline, patient presents as rational, fun-loving, social person , could not really appreciate any psychotic symptoms. Also notably his died3 years prior, and he has had multiple recent back surgeries. Believes that his recent problems were caused by clozapine dosing lowering, which was requested by surgeon in January prior to surgery. Patient was doing well on lowered dose but became increasingly paranoid over time. His outpatient provider attempted to increase this dose recently but he is not sure if he ever returned to his normal dose on which he was stable for 30 years. REVIEW OF SYSTEMS: As per HPI EXAM: 04/30/2025 9:45 AM Vital Signs Temperature 97.5 ??F (36.4 ??C) Heart Rate 94 Respiration 18 SpO2 98 % Blood Pressure 137/86 Neurological: Motor: Initial: No withdrawal to noxious stimuli, no resistance to repositioning of jaw, all extremities flaccid, pupils equal and reactive, maintains forward gaze after eyes open, extraocular movements grossly intact with no clear tracking On repeat exam: mild tremor appreciated in hands b/l, no rigidity or posturing, spontaneous movements of extremities b/l Cognitive*: Wakefulness/alertness: awake and alert Orientation: oriented to person/place/time/situation Attention: Attentive to conversation Memory: Deferred *on repeat exam Mental Status*: Appearance: appears stated age, unkempt, in hospital gown Behavior: good eye contact, calm, partially cooperative Mood: paranoid Affect: constricted, stable, not irritable Speech: normal rate/soft Thought process: linear, grossly organized Thought content and perceptions: denies thoughts of self harm, does not elaborate on AVH; paranoia regarding staff, reports harm by trump supporters in the hospital Insight and judgment: limited/limited *on re-examination MEDICATIONS: Scheduled Meds:Scheduled Medications[1] Continuous Infusions:Infusions Meds[2] PRN Meds:.PRN Medications[3] DATA: Reviewed. Qtc: 512 (04/30/25). ASSESSMENT: Carter Raymundo is a 69 y.o. male with past psych history of schizoaffective disorder on clozapine,past medical history of hypertension, CKD, oropharyngeal dysphagia c/b frequent aspiration now s/p PEG, drug-induced Parkinsonism, who presented from nursing facility with altered mental status with unresponsiveness and aphasia, now medically cleared. Psychiatry initially consulted for assistance with diagnostic clarification, with initial differential ddx of catatonia vs delirium/encephalopathy vs decompensated psychosis. On evaluation today, patient presentation significant for altered mental status characterized by mutism, unresponsiveness, similar to prior episodes. No clear motor symptoms of catatonia on exam including posturing, rigidity, waxy flexibility, grasp. Of note, patient has not missed any doses of clozapine, Sinemet in last 24 hours. Patient mental status improved shortly after dose of Ativan today.Following this, patient was conversational and engaged, notable paranoia recurring with some delusional content. Etiology of episodic AMS still unclear. Differential includes delirium vs catatonia. Patient appears obtunded during these episodes, is aphasic, is not responsive to noxious stimuli. No motor symptoms commonly observed in catatonia as described above. Acute intracranial abnormalities have been ruled out. Medication dosing has been inconsistent which may also be contributory. Patient has been tachycardic but other vitals stable; leukocytosis resolved. Repeat abdominal x-ray (04/21) demonstrates severe colonic stool burden with large rectal stool ball. Repeat EEG may be beneficial in further ruling out delirium, seizure. Both clozapine and bupropion may lower seizure threshold. Would continue to prioritize improvements in sleep, regular bowel movements as both sleep deprivation and constipation can worsen mental status. Patient presentation has been most consistent with acute delirium superimposed on known schizoaffective disorder. Catatonia is less likely given isolated symptom of mutism without muscle rigidity/waxy flexibility, and also the limited effect of benzodiazepines on clinical course. Of note, patient has missed a dose of Sinemet prior to one previous similar episode. Given ongoing work up of etiologybehind this episode of AMS, would continue on current decreased dose of clozapine. Continuing on home Wellbutrin, gabapentin, and trazodone. Brother reports at baseline patient is relatively high-functioning, pleasant, not overtly paranoid. Patient on section 12 due to inability to care for self and acute risk of psychiatric decompensation, bed search in progress. DSM-5 DIAGNOSIS: Schizoaffective disorder Delirium RECOMMENDATIONS: #LEGAL Patient remains on section 12, cannot leave AMA, bed search in progress Continue 1:1 sitter #MANAGEMENT Appreciate repeat delirium medical work up including repeat EEG Continue delirium precautions --> Emphasize strong diurnal cues including windows open during day, limit disruptions overnight, practice avoidance of deliriogenic drugs as possible, mobilize throughout the day as possible, optimize nutrition, ensure normal regular bowel movements, and treat pain to the extent possible Clozapine dosinmg qAM + 87.5mg qPM (with other PM medications for adherence) + 25mg QHS Continue Wellbutrin 100 mg TID Continue gabapentin 100 mg BID Continue ramelteon 8 mg QHS Continue trazodone 150 mg QHS Can continue to offer Seroquel 50 mg TID PRN for anxiety, irritability, agitation Essential that patient has regular bowel movements while on clozapine Psychiatry will continue to follow Recommendations communicated to primary team. Kimani Rivas MD PGY2, Department of Psychiatry [id number] Discussed with attending psychiatrist, Dr. Kymberly Mata. [1] atorvaSTATin, 20 mg, G-tube, QHS bisacodyl, 10 mg, Rectal, Once buPROPion, 100 mg, G-tube, TID carbidopa-levodopa, 2 tablet, G-tube, TID cloZAPine, 100 mg, Oral, Daily cloZAPine, 25 mg, Oral, Daily cloZAPine, 25 mg, G-tube, QHS enoxaparin, 40 mg, Subcutaneous, Q24H CLAUDIA famotidine, 20 mg, G-tube, BID gabapentin, 100 mg, G-tube, BID gabapentin, 300 mg, G-tube, QHS multivitamin with minerals, 15 mL, Oral, Daily sodium chloride, 3 mL, Intravenous, Q12H CLAUDIA polyethylene glycol, 17 g, Oral, BID potassium chloride ER, 60 mEq, Oral, Once ramelteon, 8 mg, Oral, QHS sennosides, 17.6 mg, G-tube, BID tamsulosin, 0.4 mg, G-tube, QHS traZODone, 150 mg, G-tube, Nightly [2] [3] acetaminophen calcium carbonate guaiFENesin Insert and Maintain Peripheral IV AND sodium chloride AND sodium chloride QUEtiapine Cosigned by Kymberly Mata MD at 04/30/2025 9:53 PM EDT Associated attestation - Kymberly Mata MD - 04/30/2025 9:53 PM EDT I was present with the resident during the evans portions of the service. I discussed the case with the resident and agree with the findings and plan as documented in the resident's note with the following addendum: Pt seen today for follow up visit after triggering for AMS. At time of evaluation, he is alert and engaged in interview. He continues to describe paranoid thoughts, alludes to being tortured in thehospital. Guarded around disclosing details. He clarifies that this is not related to routine care.He is cooperative with EEG. He wonders if the members of our team are fake. I spoke with his psychiatrist, Dr. Kayla Corral. Pt has no prior history of similar episodes. It is unclear exactly why clozapine was stopped prior to his surgery in January and whether it was related to sedation or risk of too much sedation. He has tolerated 175mg total daily dose in the past. At baseline, he has good insight that he can experience paranoid thoughts and is engaged in care. On exam, pt is sitting up in bed dressed in hospital attire, EEG leads in place. He is somewhat guarded and terminates interview after some time. Eye contact is good. Speech is responsive, normal rate, soft volume. Affect euthymic with restricted range. TP linear with intact associations. TC deniesSI. +paranoid thoughts, delusional concerns that treaters are imposters or fake. When asked aboutAH, he asks to terminate interview. He is alert and oriented x3. Declines MOYB, DOWB or counting backwards from 10. He is grossly attentive to interview. Insight/judgment reduced/reduced. Pt has a b/l tremor in upper extremities. Normal tone. No rigidity or cogwheeling appreciated. Language is fluent and he is following commands. No negativism. No perseveration. No autonomic obedience. No posturing. No echophenomena. Clinical impression c/w schizoaffective disorder. Etiology of recurrent episodes of altered mental status remain unclear. He is not currently catatonic on exam. He has been receiving medications as prescribed. Previous EEG negative for generalized slowing or seizure activity. Head imaging unremarkable. He is seems to be presenting with more paranoia than baseline. We are balancing treating underlying psychosis with concern for worsening sedation and constipation on higher dose of clozapine. Ozziey, recommend reducing dose to 25mg qAM + 87.5mg qPM + 25mg qHS. We will continue to follow withyou. * Karrie Starks MD - 04/30/2025 6:53 AM EDT Images from the original note were not included. [facility] Department of Medicine [facility] Medicine Progress Note Patient: Carter Raymundo Admission Date: 04/15/2025 Length of Stay: 14 PCP: Kilo Huynh Attending: Mildred Srinivasan MD Chief Complaint: Altered mental status OVERNIGHT EVENTS NAEON 9:25 - Trigger for unresponsiveness. Patient laying in bed with eyes closed. Mouth open, stiff jaw.Not opening eyes to voice or sternal rub. Fingerstick normal. Ordered RFP, CBC, CK, D-dimer, lactate, bladder scan, EKG, EEG, KUB. Ativan given with response after around 15 minutes (eyes open, conversing). Staffed with attending on rounds. SUBJECTIVE Sleeping comfortably this morning. Opens eyes to voice but not talkative today. OBJECTIVE DATA VITALS T 97.5 ??F (36.4 ??C) HR 88 BP 113/74 RR 18 SpO2 98 % O2 Device: None (Room air) 75.8kg (167 lb 1.7 oz) Body mass index is 23.31 kg/m??. PHYSICAL EXAM GENERAL: NAD, resting in bed comfortably. HEENT: No scleral icterus, moist mucous membranes. CARDIAC: Clinically well perfused. LUNG: Appears in no respiratory distress. No accessory muscle use. ABD: No abdominal abnormalities on inspection. MSK: No focal joint swelling or deformities. NEURO: Opens eyes to voice. SKIN: No significant rashes, sores or wounds noted on exposed skin. PSYCH: Calm. Paranoid. LABS, MICROBIOLOGY and STUDIES reviewed in Epic. ASSESSMENT & PLAN Carter Raymundo is a 69 y.o. male with a relevant past medical history of HTN, CKD, schizoaffectivedisorder, and drug-induced parkinsonism, who presented with unresponsiveness, asphaia, and possibleleft facial droop. CT and MRI head r/o stroke, and TME workup negative. Transient hypoxia in ED without fever, leukocytosis, and any localizing signs and symptoms points toward potential aspiration pneumonitis. Patient admitted to medicine for monitoring and re- initation of clozapine dosing, now medically stable pending inpatient psych placement for decompensated schizoaffective disorder. ACTIVE ISSUES # Brief episode of unresponsiveness # Schizoaffective disorder Patient presented with acute onset of unresponsiveness and aphasia. Also concern for facial asymmetry, however, per chart review, this is chronic. Etiology of altered mental status unclear. Code stroke activated upon presentation, however, CT/CTA head and neck did not reveal any acute intracranial abnormalities. Initially given lorazepam for concern for catatonia. Patient became more responsive following this. Has not needed additional doses since then with no further signs of catatonia, so mayhave been an episode of transient catatonia. May have occurred in the setting of missed medication doses that morning. Per chart reivew and brother's report patient's dose of clozapine has also been c hanged recently. Work-up for toxic-metabolic encephalopathy has been negative. Pt had another episode of unresponsiveness on 04/22, see trigger note from that date. Another trigger called on 04/27 as above. Unclear etiology of repeated episodes of unresponsiveness, but wondering if it could be in the setting of missing medications, especially home Sinemet. - Labs from trigger 04/30 largely unremarkable thus far. Very slightly elevated d-dimer but low suspicion for PE at this time so will defer further workup for now - F/u EEG started 04/30 - If there are additional episodes of unresponsiveness, will consider Neuro consult in case missed Sinemet doses are contributing to his presentation - Psych following, appreciate recs. - C/h buproprion 100mg TID - C/h clozapine (doses recently changed, confirmed most recent dose with Gemma Cain): 125 mg atnight, 25 mg in the morning -- per Psych, adjusted to 25mg qAM, 100 mg qPM (w/ afternoon meds), 25mg QHS so that patient is able to get more of his medications. - C/h trazodone 150mg qHs; added 12.5mg BID PRN for anxiety and irritability - Ramelteon 8 mg at bedtime - Hydroxizine 75 mg prn, Seroquel 50 mg prn - d/c lorazapam (initially started due to c/f catatonia) - Per psych meets section 12 criteria, cannot leave AMA - CBC with diff shows normal ANC - Patient is medically clear for psych bed placement, will encourage to work with PT and get out ofbed as able - Updated brother (HCP) on patient refusing meds. Deferring guardianship discussion for now as the goal is to get patient to inpatient psych #Constipation Severe stool burden on KUB while on clozapine. - Bowel reg: scheduled Miralax, senna BID - Repeat KUB 04/30 with rectal stool ball - Fleet enema ordered # Dysphagia with G tube reliance Patient with history of oropharyngeal dysphagia. Pulled out G tube 04/19 AM - G tube replaced by IR on 04/19 PM, ok to use # Transient hypoxia # C/f aspiration pneumonitis Patient with episode of hypoxia in ED, quickly resolved without intervention. Patient with history of oropharyngeal dysphagia with G tube in place. Confirmed with eGmma Cain RN that patient is currently on pureed diet with SOLAR DESIGN ENGINEER at their facility following. High risk for aspiration and given transient nature suspect this was the driving etiology of hypoxia. CXR with unclear opacification, then obtained lateral view which showed some streakiness c/f atelectasis vs infection. Given lack of fevers, cough, and leukocytosis, low clinical suspicion for pneumonia and will defer Abx for now. - Continue pureed diet - Deferring SOLAR DESIGN ENGINEER for now - Nutrition consulted, appreciate recs - Consider out pt sleep study - CXR with no infiltrates 04/22 # Sinus Tachycardia Pt consistently tachycardic in 90s - low 100s during this hospitalization. EKG's to date all consistent with sinus tachycardia. #Productive cough Low c/f PNA. Added guaifenesin PRN. CHRONIC / STABLE ISSUES # Drug-induced Parkinsonism - C/h sinemet # CAD # HTN - C/h statin [] TI: Consideration of ASA # CKD - Trending Cr, currently at baseline # BPH - C/h tamsulosin # GERD - C/h pepcid CORE MEASURES - FEN: IVF PRN, replenish electrolytes, Diet Modified Texture; Pureed; Thin Liquids; Deliver To Nursing, Finger Foods/No Utensils, No Sharps, Safety Tray - PAML complete - Functional Status: Independent without use of assistive devices for ambulation - DVT prophylaxis: SC low molecular weight heparin - Access: peripheral IV x1 - Code: Full Code - Contact: brother Lr, Patient Contacts Name Legal Rel Relationship Phone Active Delvin Raymundo Brothmarisa - Disposition: -- Anticipated discharge to: nursing home facility -- Anticipated discharge date: t+2 -- Anticipated discharge barriers: Completion of evaluation for altered mental status Extended Emergency Contact Information Primary Emergency Contact: Delvin Raymundo Mobile Relation: Brother Silver Solderer needed? No Karrie Starks MD ([facility]) Dept of Medicine Cosigned by Mildred Srinivasan MD at 04/30/2025 3:40 PM EDT Associated attestation - Mildred Srinivasan MD - 04/30/2025 3:40 PM EDT I have seen and examined Mr. Raymundo, reviewed the findings and plan of care as documented by Karrie Starks MD and agree, except for any additional comments below. Patient triggered this morning for altered mental status/unresponsiveness. He was given Ativan withimprovement in mental status about 15 minutes afterwards. Workup including chem panel, CBC, CK unremarkable. Age-adjusted D-dimer is also normal (and Wells score is 0). Checking EEG for seizure activity given positive response to Ativan and episodic nature of these events (very similar to multiple AMS episodes during this hospitalization, most recently on Sunday). KUB shows severe colonic burden with rectal stool ball. May require manual disimpaction (if patient is agreeable) but will trial enema first. Dispo: Inpatient psych for decompensated schizoaffective disorder A total of of [] 25 minutes [] 35 minutes [x] greater than 50 minutes was spent personally by me onencounter today, including but not limited to review of data in electronic medical record, [id number] evaluation, documentation, and coordination of care. Mildred Srinivasan MD Section of Hospital Medicine [facility] * Yogi Blevins, PT - 04/29/2025 12:57 PM EDT PHYSICAL THERAPY PROGRESS NOTE Rehabilitation Services - Inpatient Physical Therapy Level of Care: Floor Interdisciplinary Recommendations PT Discharge rec: Pending IP Psych placement Movement Precautions: Fall risk Activity and Mobility Recommendations: [x]Patient is at high risk for deconditioning. Please maximize independence in ADLs and encourage frequent mobility including: Assist of 1-2 for out of bed to chair 3x/day if agreeable. Otherwise utilize lift for all mobility including transfers to chair [x]Patient is at risk for falls. Please use chair alarm when out of bed. [x]Patient is at risk for delirium. Please consider implementing strategies to reduce risk including: OOB to chair 3 day for all meals Familiar pictures and items within view News or nonverbal music on during daytime Lights on during day with shades UP Frequent Reorientation to clock, calendar, and window Encourage participation with ADLs Encourage family presence at bedside *For questions please check the patient???s care team for the most updated PT contact information [x]Updated medical status including labs, radiology, procedures and medications since previous visit reviewed Subjective: I want to sit in the chair but it a torture chamber that you have created Patient-Stated Goal: Get out of this bed Objective: Hemodynamic Response/Aerobic Capacity VSS throughout session, pt denied dizziness or SOB Functional Mobility Bed Mobility: Rolling: Supervision Adaptive Equipment: Side rails Supine to Sit: Minimal assistance Adaptive Equipment: HOB elevated, Side rails Sit to Supine: Supervision Adaptive Equipment: HOB elevated, Side rails Transfers: Sit to Stand: Minimal assistance Stand to Sit: Minimal assistance Performed 3 total sit<>stand transfers Transfer aid: Bed railings Transfer Barriers: Balance, Gross motor strength, Pain Gait Belt Used For Transfers: Yes Gait: Activity not assessed Balance: Sitting - Static: Supervision Sitting - Dynamic: Supervision Standing - Static: Minimal assistance, With bilateral upper extremity support Standing - Dynamic: Activity does not occur Pain: 4/10 at rest. -/10 with activity. Excruciating /10 at recovery. Location: mid-back Quality: excruciating Intervention: RN notified, pt declined need for hot/ice pack or pain medication Limiting Symptoms: Pain Other Tests and Measures: Cognition: Level of Consciousness: Alert Oriented to: Name, Date of , Month, Year, Place Disoriented to: Day, Date Patient Behaviors/Mood: Labile Memory: Decreased recall of recent events Attention to Tasks: Attends to tasks with cues Safety Awareness: Decreased awareness of need for assistance, Decreased awareness of safety precautions, Decreased awareness of deficits Insight: Impaired Intervention: Therapeutic activities Functional mobility training Balance training Patient/Caregiver Education RE: [x]Role of PT [x]PT plan of care [x]Fall risk reduction [x]Discharge recommendations [x]Mobility Recommendations []Other: Team Communication: Communicated with [x]RN [] []OT []CM RE: Patient status []Patient discussed at interdisciplinary team rounds. Pt left supine with all needs in reach, bed alarm for safety Assessment Clinical Impression: Carter Raymundo is a 69 y.o. male with a history of HTN, CKD, schizoaffective disorder, and drug-induced parkinsonism who presents to physical therapy during hospitalization withunresponsiveness, asphaia, and possible left facial droop, found to have aspiration pneumonitis. Pt is making steady progress as demonstrated by improved activity tolerance with standing as compared to previous visit. During session, pt began to have increased paranoia regarding the bed and chair materials, which caused him be to more resistant to mobility. Pt continues to demonstrate impairedfunctional mobility, strength and balance due to associated deconditioning from limited mobility during hospitalization. Pt currently awaiting inpatient psych bed placement. Acute PT will continue to follow and progress mobility as appropriate towards baseline. Treatment Plan: Bed mobility, Balance training, Gait training/stairs, Patient / Family education, Therapeutic Activities/Functional Training, Therapeutic Exercise, Transfer training Patient agrees with the above goals and is willing to participate in the rehabilitation program: Yes Time: 2692-9809 Physical Therapist Name: Yogi Blevins PT Physical Therapist Pager: [phone] License #: [id number] * Nicole Ramirez - 04/29/2025 9:43 AM EDT NUTRITION FOLLOW UP NOTE SUBJECTIVE: Patient confused, not appropriate historian at this time. Tube feeds off per cycled orders, pump recall reviewed. OBJECTIVE: Height: 71 in Admit weight: 97.3 kg (bed, 04/16) Most recent weight: 75.8 kg (bed, 04/17) Pertinent Meds: famotidine, liquid multivitamin w/ minerals, polyethylene glycol, senna. Others noted. Recent Labs 04/28/25 0456 NA 137 K 4.1 CL 101 CO2 25 BUN 30* CREATININE 1.00 GLUCOSE 119* CALCIUM 9.3 Recent Labs 04/27/25 1149 POCGLU 136* Recent Labs 04/27/25 1313 ALT <5 AST 21 ALKPHOS 177* BILITOT 0.4 Lab Results Component Value Date [id number] 38 04/17/2025 CRP 7.5 (H) 04/17/2025 Food Allergies: NKFA Diet Order: Pureed diet, thin liquids Tube Feed Order: Two Sundar HN @ 50 mL/hr x20 hrs (run from 1pm to 9am) (provides: 2000 kcal, 84 g protein, 700 mL free water) With 350 mL flushes q6h (+1400 mL) Total 2100 mL free water/day Access Type: PEG Pump Recall: total 5249 mL infused x 6 days GI/Abdomen: Abdomen rounded, non-tender per flowsheets. LBM 04/24/25. Skin: Irritant contact dermatitis to sacrum per flowsheets. Drains: None. Extremities: No LE edema noted. Nutrition Focused Physical Exam: Deferred. ASSESSMENT: Estimated Nutrition Needs: Calories: 6408-4215 kcal (25-30 kcal/kg) Protein: 85-106 g (1.2-1.5 g/kg) Fluids: 7771-5256 mL (25-30 mL/kg) Estimated Needs Calculated Usin.9 kg (156 lb 4.9 oz) (weight at rehab) Specifics: 69M w/ PMH significant for HTN, CKD, schizoaffective disorder, & drug-induced parkinsonism. Presented to [facility] on 04/15/25 w/ unresponsiveness, asphaia, & possible left facial droop. CT and MRI head r/o stroke, and TME workup negative. Admitted to medicine for monitoring & re-initation of clozapine dosing, now medically stable pending inpatient psych placement for decompensated schizoaf fective disorder. Nutrition following for tube feed management. Patient continues on cycled tube feeds awaiting inpatient psych placement. Patient refusing all food even though he is cleared for modified-textured diet. Tube feed cycle running per orders, per pump recall x6 days, patient received ~87% of ordered regimen (providing ~97% of calorie needs). Overall good tube feed provisions since last nutrition follow-up, continue as ordered to provide all nutrition needs as patient refusing POs. No updated weights,obtain new weight. Last Mg/Phos labs checked 04/24, obtain updated labs as able & trend daily w/ daily BMP. Nutrition to follow. Interventions / Recommendations: Continue pureed diet as ordered, encourage any PO intake as patient becomes amenable. Continue tube feeds as ordered: Two Sundar HN @ 50 mL/hr x20 hrs (run from 1pm to 9am) (provides: 2000kcal, 84 g protein, 700 mL free water). With 350 mL flushes q6h (+1400 mL). Total 2100 mL free water/day. Adjust free water flushes PRN for Na/hydration/volume. Monitor lytes, address PRN: Check updated Magnesium & Phosphorus levels. Continue multivitamin w/ minerals as ordered. Monitor I's/O's, GI function, & BMs daily. Obtain new weight. Nutrition to continue to follow, please message or page [phone] with any questions/concerns Signed by: Nicole Ramirez MS, RD, LDN 04/29/25 9:43 AM * Karrie Starks MD - 04/29/2025 6:41 AM EDT Images from the original note were not included. [facility] Department of Medicine [facility] Medicine Progress Note Patient: Carter Raymundo Admission Date: 04/15/2025 Length of Stay: 13 PCP: Kilo Huynh Attending: Mildred Srinivasan MD Chief Complaint: Altered mental status OVERNIGHT EVENTS 4:58 AM told patient was in pain, evaluated at bedside. No concerning features for acute pathology.No new rashes or bruising. No new pressure ulcer noted. SUBJECTIVE Feels like he is going to , but not able to elaborate further. Says he knows that he is being paranoid, but thinks that he was poisoned and that is causing him to be sick. Endorses some abdominal pain. Okay with the primary team updating his brother today, but does not want to talk to him personally today. Otherwise, no new complaints. OBJECTIVE DATA VITALS T 98.4 ??F (36.9 ??C) HR (!) 98 BP (!) 129/90 RR 18 SpO2 95 % O2 Device: None (Room air) 75.8 kg (167 lb 1.7 oz) Body mass index is 23.31 kg/m??. PHYSICAL EXAM GENERAL: NAD, sitting in bed comfortably. HEENT: No scleral icterus, moist mucous membranes. CARDIAC: Clinically well perfused. LUNG: Appears in no respiratory distress. No accessory muscle use. ABD: No abdominal abnormalities on inspection. MSK: No focal joint swelling or deformities. NEURO: Alert, oriented. EOMI. Face symmetric, speech normal. Moving all extremities against gravity. SKIN: No significant rashes, sores or wounds noted on exposed skin. PSYCH: Calm. Paranoid. LABS, MICROBIOLOGY and STUDIES reviewed in Epic. ASSESSMENT & PLAN Carter Raymundo is a 69 y.o. male with a relevant past medical history of HTN, CKD, schizoaffectivedisorder, and drug-induced parkinsonism, who presented with unresponsiveness, asphaia, and possibleleft facial droop. CT and MRI head r/o stroke, and TME workup negative. Transient hypoxia in ED without fever, leukocytosis, and any localizing signs and symptoms points toward potential aspiration pneumonitis. Patient admitted to medicine for monitoring and re- initation of clozapine dosing, now medically stable pending inpatient psych placement for decompensated schizoaffective disorder. ACTIVE ISSUES # Brief episode of unresponsiveness # Schizoaffective disorder Patient presented with acute onset of unresponsiveness and aphasia. Also concern for facial asymmetry, however, per chart review, this is chronic. Etiology of altered mental status unclear. Code stroke activated upon presentation, however, CT/CTA head and neck did not reveal any acute intracranial abnormalities. Initially given lorazepam for concern for catatonia. Patient became more responsive following this. Has not needed additional doses since then with no further signs of catatonia, so mayhave been an episode of transient catatonia. May have occurred in the setting of missed medication doses that morning. Per chart reivew and brother's report patient's dose of clozapine has also been c hanged recently. Work-up for toxic-metabolic encephalopathy has been negative. Pt had another episode of unresponsiveness on 04/22, see trigger note from that date. Another trigger called on 04/27 as above. Unclear etiology of repeated episodes of unresponsiveness, but wondering if it could be in the setting of missing medications, especially home Sinemet. - BMP, CBC following trigger were largely unremarkable except for leukocytosis. Repeat labs with improved leukocytosis. Will hold off on additional infectious workup for now as long as vitals remain normal. - If there are additional episodes of unresponsiveness, will consider Neuro consult in case missed Sinemet doses are contributing to his presentation - Psych following, appreciate recs. - C/h buproprion 100mg TID - C/h clozapine (doses recently changed, confirmed most recent dose with Gemma Cain): 125 mg atnight, 25 mg in the morning -- per Psych, adjusting to 25mg qAM, 100 mg qPM (w/ afternoon meds), 25mg QHS so that patient is able to get more of his medications (usually more amenable to meds in the afternoon) - C/h trazodone 150mg qHs; added 12.5mg BID PRN for anxiety and irritability - Ramelteon 8 mg at bedtime - Hydroxizine 75 mg prn, Seroquel 50 mg prn - d/c lorazapam (initially started due to c/f catatonia) - Per psych meets section 12 criteria, cannot leave AMA - CBC with diff shows normal ANC - Patient is medically clear for psych bed placement, will encourage to work with PT and get out ofbed as able - Updated brother (HCP) on patient refusing meds. Deferring guardianship discussion for now as the goal is to get patient to inpatient psych #Constipation Severe stool burden on KUB while on clozapine. - Bowel reg: scheduled Miralax, senna BID # Dysphagia with G tube reliance Patient with history of oropharyngeal dysphagia. Pulled out G tube 04/19 AM - G tube replaced by IR on 04/19 PM, ok to use # Transient hypoxia # C/f aspiration pneumonitis Patient with episode of hypoxia in ED, quickly resolved without intervention. Patient with history of oropharyngeal dysphagia with G tube in place. Confirmed with Gemma Cain RN that patient is currently on pureed diet with SOLAR DESIGN ENGINEER at their facility following. High risk for aspiration and given transient nature suspect this was the driving etiology of hypoxia. CXR with unclear opacification, then obtained lateral view which showed some streakiness c/f atelectasis vs infection. Given lack of fevers, cough, and leukocytosis, low clinical suspicion for pneumonia and will defer Abx for now. - Continue pureed diet - Deferring SOLAR DESIGN ENGINEER for now - Nutrition consulted, appreciate recs - Consider out pt sleep study - CXR with no infiltrates 04/22 # Sinus Tachycardia Pt consistently tachycardic in 90s - low 100s during this hospitalization. EKG's to date all consistent with sinus tachycardia. #Productive cough Low c/f PNA. Added guaifenesin PRN. CHRONIC / STABLE ISSUES # Drug-induced Parkinsonism - C/h sinemet # CAD # HTN - C/h statin [] TI: Consideration of ASA # CKD - Trending Cr, currently at baseline # BPH - C/h tamsulosin # GERD - C/h pepcid CORE MEASURES - FEN: IVF PRN, replenish electrolytes, Diet Modified Texture; Pureed; Thin Liquids; Deliver To Nursing, Finger Foods/No Utensils, No Sharps, Safety Tray - PAML complete - Functional Status: Independent without use of assistive devices for ambulation - DVT prophylaxis: SC low molecular weight heparin - Access: peripheral IV x1 - Code: Full Code - Contact: brother Lr, Patient Contacts Name Legal Rel Relationship Phone Active Delvin Raymundo Brothmarisa - Disposition: -- Anticipated discharge to: nursing home facility -- Anticipated discharge date: t+2 -- Anticipated discharge barriers: Completion of evaluation for altered mental status Extended Emergency Contact Information Primary Emergency Contact: Delvin Raymundo Mobile Relation: Brother Silver Solderer needed? No Karrie Starks MD ([facility]) Dept of Medicine Cosigned by Mildred Srinivasan MD at 04/29/2025 4:11 PM EDT Associated attestation - Mildred Srinivasan MD - 04/29/2025 4:11 PM EDT I have seen and examined Mr. Raymundo, reviewed the findings and plan of care as documented by Karrie Starks MD and agree, except for any additional comments below. Patient is medically appropriate for transfer to inpatient psych pending bed availability. A total of of [] 25 minutes [] 35 minutes [x] greater than 50 minutes was spent personally by me onencounter today, including but not limited to review of data in electronic medical record, [id number] evaluation, documentation, and coordination of care. Mildred Srinivasan MD Section of Hospital Medicine [facility] * Kimani Rivas MD - 04/28/2025 10:33 AM EDT Images from the original note were not included. [facility] PSYCHIATRIC CONSULTATION FOLLOW-UP NOTE INTERVAL HPI: - Patient agitated overnight, attempted to jump out of bed, required Seroquel PRN - Nursing reports patient readily engaging this AM, conversational, calm On interview, patient is immediately distrusting of this physician underwriter, stating that you tried to get me to kill myself last week . He endorses mistrust of this physician underwriter and staff stating that they are all trying to hurt him. He feels that everyone around him is evil and sadistic and it's hard to trust them. He believes his brother is also part of this cohort but has been trying more to help him this week. He reports that he did not sleep at all last night and he felt like he wanted to jump out of the window . He declines answer certain questions about mood and cognition for unspecified reasons. He denies SI and states that he wants to live, becomes tearful and states he is feeling like he is becoming more paranoid . He may be open to continuing to take medications but is unsure due to mistrust. REVIEW OF SYSTEMS: As per HPI EXAM: 04/28/2025 8:08 AM Vital Signs Temperature 97.6 ??F (36.4 ??C) Heart Rate 109 Respiration 18 SpO2 97 % Blood Pressure 151/88 Neurological: Motor: appreciable tremor in hands b/l Cognitive*: Wakefulness/alertness: Awake and alert Orientation: grossly oriented to person/place/situation Attention: attentive to conversation Memory: Deferred Language: Fluent in Thai, no paraphasic errors *limited by patient participation Mental Status: Appearance: appears distressed, thin frame, unkempt, mildly distended abdomen, wearing hospital gown Behavior: good eye contact, partially cooperative, restless, tremulous in b/l hands, does not appear internally preoccupied Mood: paranoid Affect: dysphoric, constricted, intermittently tearful, labile, mildly irritable Speech: Normal rate, volume, prosody Thought process: linear with intermittent tangentiality, grossly organized Thought content and perceptions: denies active SI but states he feels like jumping out of the window , no HI/AVH, severe paranoia regarding this physician underwriter/staff/brother/taking medications, delusions regarding intent to harm by this physician underwriter/staff/brother Insight and judgment: Poor/Poor MEDICATIONS: Scheduled Meds:Scheduled Medications[1] Continuous Infusions:Infusions Meds[2] PRN Meds:.PRN Medications[3] DATA: Reviewed. ASSESSMENT: Carter Raymundo is a 69 y.o. male with past psych history of schizoaffective disorder on clozapine,past medical history of hypertension, CKD, oropharyngeal dysphagia c/b frequent aspiration now s/p PEG, drug-induced Parkinsonism, who presented from nursing facility with altered mental status with unresponsiveness and aphasia, now medically cleared. Psychiatry initially consulted for assistance with diagnostic clarification, with initial differential ddx of catatonia vs delirium/encephalopathy vs decompensated psychosis. On evaluation today, patient presentation significant for worsening paranoia, dysphoric mood, tangential thought process, and endorsement of delusional content, concerning for decompensation of underlying psychiatric illness vs acute delirium. Of note, patient has missed nighttime doses of clozapine for the past 2 nights. Patient has been intermittently refusing medications. Has been tachycardic with persistent mild leukocytosis on labs, afebrile; no obvious source of infection. Would also noteabdominal x-ray demonstrates severe stool burden without obstruction. Would continue to prioritize improvements in sleep, regular bowel movements as both sleep deprivation and constipation can worsen mental status. Patient presentation has been most consistent with acute delirium superimposed on known schizoaffective disorder. Catatonia is less likely given isolated symptom of mutism without muscle rigidity/waxy flexibility, and also the limited effect of benzodiazepines on clinical course. Of note, patient has missed a dose of Sinemet prior to one previous similar episode. Given ongoing work up of etiologybehind this episode of AMS, would continue on current decreased dose of clozapine. Continue home Wellbutrin, gabapentin, and trazodone. Patient on section 12 due to inability to care for self and acute risk of psychiatric decompensation, bed search in progress. DSM-5 DIAGNOSIS: Schizoaffective disorder Delirium RECOMMENDATIONS: #LEGAL Patient remains on section 12, cannot leave AMA, bed search in progress Continue 1:1 sitter #MANAGEMENT Please enforce delirium precautions --> Emphasize strong diurnal cues including windows open during day, limit disruptions overnight, practice avoidance of deliriogenic drugs as possible, mobilize throughout the day as possible, optimize nutrition, ensure normal regular bowel movements, and treat pain to the extent possible Clozapine dosinmg qAM + 100mg qPM (with afternoon medications) + 25mg QHS Continue Wellbutrin 100 mg TID Continue gabapentin 100 mg BID Continue ramelteon 8 mg QHS Continue trazodone 150 mg QHS Can continue to offer Seroquel 50 mg TID PRN for anxiety, irritability, agitation Essential that patient has regular bowel movements while on clozapine Recommendations communicated to primary team. Kimani Rivas MD PGY2, Department of Psychiatry [id number] Discussed with attending psychiatrist, Dr. Kymberly Mata. [1] atorvaSTATin, 20 mg, G-tube, QHS buPROPion, 100 mg, G-tube, TID carbidopa-levodopa, 2 tablet, G-tube, TID cloZAPine, 125 mg, G-tube, QHS cloZAPine, 25 mg, Oral, Daily enoxaparin, 40 mg, Subcutaneous, Q24H CLAUDIA famotidine, 20 mg, G-tube, BID gabapentin, 100 mg, G-tube, BID gabapentin, 300 mg, G-tube, QHS hydrOXYzine HCL, 25 mg, Intramuscular, Once multivitamin with minerals, 15 mL, Oral, Daily sodium chloride, 3 mL, Intravenous, Q12H CLAUDIA potassium chloride ER, 60 mEq, Oral, Once ramelteon, 8 mg, Oral, QHS sennosides, 17.6 mg, G-tube, BID tamsulosin, 0.4 mg, G-tube, QHS traZODone, 150 mg, G-tube, Nightly [2] [3] calcium carbonate guaiFENesin hydrOXYzine HCL Insert and Maintain Peripheral IV AND sodium chloride AND sodium chloride QUEtiapine * Karrie Starks MD - 04/28/2025 6:41 AM EDT Images from the original note were not included. [facility] Department of Medicine [facility] Medicine Progress Note Patient: Carter Raymundo Admission Date: 04/15/2025 Length of Stay: 12 PCP: Kilo Huyhn Attending: Mildred Srinivasan MD Chief Complaint: Altered mental status OVERNIGHT EVENTS 6:05 AM pt very agitated and trying to jump out of bed. High fall risk - per nurse. 4 bed rails placed. Getting Prn seroquel SUBJECTIVE Says he did not get much sleep last night. Says that he is not eating or drinking because he feels paranoid. Wants to talk to his brother but says he is paranoid about him, so would like us to updatehim. Endorses some abdominal discomfort. Cannot remember the last time he had a bowel movement. OBJECTIVE DATA VITALS T 97.4 ??F (36.3 ??C) HR (!) 109 BP 137/84 RR 17 SpO2 97 % O2 Device: None (Room air) 75.8 kg (167 lb 1.7 oz) Body mass index is 23.31 kg/m??. PHYSICAL EXAM GENERAL: NAD, sitting in chair comfortably. HEENT: No scleral icterus, moist mucous membranes. CARDIAC: Clinically well perfused. LUNG: Appears in no respiratory distress. No accessory muscle use. ABD: No abdominal abnormalities on inspection. MSK: No focal joint swelling or deformities. NEURO: Alert, oriented. EOMI. Face symmetric, speech normal. Moving all extremities against gravity. SKIN: No significant rashes, sores or wounds noted on exposed skin. PSYCH: Calm. Paranoid. LABS, MICROBIOLOGY and STUDIES reviewed in Epic. ASSESSMENT & PLAN Carter Raymundo is a 69 y.o. male with a relevant past medical history of HTN, CKD, schizoaffectivedisorder, and drug-induced parkinsonism, who presented with unresponsiveness, asphaia, and possibleleft facial droop. CT and MRI head r/o stroke, and TME workup negative. Transient hypoxia in ED without fever, leukocytosis, and any localizing signs and symptoms points toward potential aspiration pneumonitis. Patient admitted to medicine for monitoring and re- initation of clozapine dosing, now medically stable pending inpatient psych placement for decompensated schizoaffective disorder. ACTIVE ISSUES # Brief episode of unresponsiveness # Schizoaffective disorder Patient presented with acute onset of unresponsiveness and aphasia. Also concern for facial asymmetry, however, per chart review, this is chronic. Etiology of altered mental status unclear. Code stroke activated upon presentation, however, CT/CTA head and neck did not reveal any acute intracranial abnormalities. Initially given lorazepam for concern for catatonia. Patient became more responsive following this. Has not needed additional doses since then with no further signs of catatonia, so mayhave been an episode of transient catatonia. May have occurred in the setting of missed medication doses that morning. Per chart reivew and brother's report patient's dose of clozapine has also been c hanged recently. Work-up for toxic-metabolic encephalopathy has been negative. Pt had another episode of unresponsiveness on 04/22, see trigger note from that date. Another trigger called on 04/27 as above. Unclear etiology of repeated episodes of unresponsiveness, but wondering if it could be in the setting of missing medications, especially home Sinemet. - BMP, CBC following trigger were largely unremarkable except for leukocytosis. Repeat labs with improved leukocytosis. Will hold off on additional infectious workup for now as long as vitals remain normal. - If there are additional episodes of unresponsiveness, will consider Neuro consult in case missed Sinemet doses are contributing to his presentation - Psych following, appreciate recs. - C/h buproprion 100mg TID - C/h clozapine (doses recently changed, confirmed most recent dose with Gemma Cain): 125 mg atnight, 25 mg in the morning - C/h trazodone 150mg qHs; added 12.5mg BID PRN for anxiety and irritability - Ramelteon 8 mg at bedtime - Hydroxizine 75 mg prn, Seroquel 50 mg prn - d/c lorazapam (initially started due to c/f catatonia) - Per psych meets section 12 criteria, cannot leave AMA - CBC with diff shows normal ANC - Patient is medically clear for psych bed placement, will encourage to work with PT and get out ofbed as able - Updated brother (HCP) on patient refusing meds. Deferring guardianship discussion for now as the goal is to get patient to inpatient psych #Constipation Severe stool burden on KUB while on clozapine. - Bowel reg: scheduled Miralax, senna BID # Dysphagia with G tube reliance Patient with history of oropharyngeal dysphagia. Pulled out G tube 04/19 AM - G tube replaced by IR on 04/19 PM, ok to use # Transient hypoxia # C/f aspiration pneumonitis Patient with episode of hypoxia in ED, quickly resolved without intervention. Patient with history of oropharyngeal dysphagia with G tube in place. Confirmed with Gemma Cain RN that patient is currently on pureed diet with SOLAR DESIGN ENGINEER at their facility following. High risk for aspiration and given transient nature suspect this was the driving etiology of hypoxia. CXR with unclear opacification, then obtained lateral view which showed some streakiness c/f atelectasis vs infection. Given lack of fevers, cough, and leukocytosis, low clinical suspicion for pneumonia and will defer Abx for now. - Continue pureed diet - Deferring [employer] DES[employer] for now - Nutrition consulted, appreciate recs - Consider out pt sleep study - CXR with no infiltrates 04/22 # Sinus Tachycardia Pt consistently tachycardic in 90s - low 100s during this hospitalization. EKG's to date all consistent with sinus tachycardia. #Productive cough Low c/f PNA. Added guaifenesin PRN. CHRONIC / STABLE ISSUES # Drug-induced Parkinsonism - C/h sinemet # CAD # HTN - C/h statin [] TI: Consideration of ASA # CKD - Trending Cr, currently at baseline # BPH - C/h tamsulosin # GERD - C/h pepcid CORE MEASURES - FEN: IVF PRN, replenish electrolytes, Diet Modified Texture; Pureed; Thin Liquids; Deliver To Nursing, Finger Foods/No Utensils, No Sharps, Safety Tray - PAML complete - Functional Status: Independent without use of assistive devices for ambulation - DVT prophylaxis: SC low molecular weight heparin - Access: peripheral IV x1 - Code: Full Code - Contact: brother Lr, Patient Contacts Name Legal Rel Relationship Phone Active Delvin Raymundo Brothmarisa - Disposition: -- Anticipated discharge to: nursing home facility -- Anticipated discharge date: t+2 -- Anticipated discharge barriers: Completion of evaluation for altered mental status Extended Emergency Contact Information Primary Emergency Contact: Delvin Raymundo Mobile Relation: Brother Silver Solderer needed? No Karrie Starks MD ([place]) Dept of Medicine Cosigned by Mildred Srinivasan MD at 04/28/2025 7:43 PM EDT Associated attestation - Mildred Srinivasan MD - 04/28/2025 7:43 PM EDT I have seen and examined Mr. Raymundo, reviewed the findings and plan of care as documented by Karrie Starks MD and agree, except for any additional comments below. Patient was agitated this morning but more alert and responsive than yesterday. WBC back near previous baseline, may have been slightly hemoconcentrated yesterday. Otherwise found to have large stool burden on KUB so uptitrated bowel regimen. Dispo: Medically ready for transfer to inpatient psych pending bed availability A total of of [] 25 minutes [] 35 minutes [x] greater than 50 minutes was spent personally by me onencounter today, including but not limited to review of data in electronic medical record, [id number] evaluation, documentation, and coordination of care. Mildred Srinivasan MD Section of Hospital Medicine [facility] * Chris Soria RN - 04/27/2025 12:15 PM EDT Shift 7a-3pm Triggered pt for AMS. Pt was unresponsive only eyes open; clenching mouth. Per Observer pt stopped talking around 10am. Pt had a huge cough but still did not engage in conversation. Pt only looked atRN. Tremor on bilat arm, pt arm very flaccid. Pt did not follow command. Cory lift back to bed from chair. [id number], Vitals stable, awaiting for psych recommendation. Given carbidopa-levodopa via peg tube. Portable suctioned at bedside * Kimani Rivas MD - 04/27/2025 9:22 AM EDT Images from the original note were not included. [facility] PSYCHIATRIC CONSULTATION FOLLOW-UP NOTE INTERVAL HPI: -No acute events overnight. Bed search in progress. No PRN utilized. -Nursing documents patient has been hyper-alert this morning, refusing VS and medications, making odd statements, appearing anxious vs paranoid Patient appears calm and comfortable on interview. He initiates conversation by stating not sure why you're here . He reports feeling good and having no acute complaints. He then expresses some frustration about staying in the hospital and answering questions. He states that he did not sleep at all last night. He states that he has not been eating because he does not need to eat . He declinesto answer if he has been having bowel movements. Patient declines to speak about his brother and their recent interactions. He states that he is done answering questions and stares away from this interviewer. *Addendum: Patient triggered ~12:15pm for AMS, involving staring, unresponsiveness, not following commands. Patient seen by this physician underwriter and attending ~30 mins after administration of Ativan. On re-examination with attending, patient has eyes closed, not responsive to noxious stimuli. This physician underwriter opened the patient's eyes and he holds them open, tracks partially, then continues to stare forward. REVIEW OF SYSTEMS: As per HPI EXAM: 04/26/2025 3:33 PM Vital Signs Temperature 98.5 ??F (36.9 ??C) Heart Rate 96 Respiration 18 SpO2 98 % Blood Pressure 121/76 Neurological: Motor: jerky repetitive movements of lower jaw, mild tremor in hands b/l Cognitive*: Wakefulness/alertness: Awake and alert Orientation: grossly oriented to person/place/situation Attention: attentive to conversation Memory: Deferred Language: Fluent in Thai, no paraphasic errors *limited by patient participation Mental Status: Appearance: appears stated age, thin frame, mildly distended abdomen, fair grooming/hygiene, wearing hospital gown Behavior: Calm, fair eye contact, partially cooperative then uncooperative, does not appear internally preoccupied, mildly tremulous in b/l hands Mood: good Affect: constricted, stable, mildly irritable Speech: Normal rate, volume, prosody Thought process: Linear, grossly organized Thought content and perceptions: Does not report SI, HI, AVH; possible paranoia about engaging withstaff/taking medications/divulging too much information Insight and judgment: Limited/Limited MEDICATIONS: Scheduled Meds:Scheduled Medications[1] Continuous Infusions:Infusions Meds[2] PRN Meds:.PRN Medications[3] DATA: Lab Results Component Value Date WBC 9.98 04/24/2025 HGB 12.4 (L) 04/24/2025 HCT 36.2 (L) 04/24/2025 MCV 93 04/24/2025 PLT 287 04/24/2025 Lab Results Component Value Date GLUCOSE 154 (H) 04/24/2025 CALCIUM 9.2 04/24/2025 NA 141 04/24/2025 K 3.9 04/24/2025 CO2 26 04/24/2025 CL 104 04/24/2025 BUN 35 (H) 04/24/2025 CREATININE 0.90 04/24/2025 Lab Results Component Value Date ALT <5 04/22/2025 AST 17 04/22/2025 ALKPHOS 161 (H) 04/22/2025 BILITOT 0.3 04/22/2025 Lab Results Component Value Date CORONAVIRUS Negative 04/16/2025 Lab Results Component Value Date [id number] 438 04/14/2024 Lab Results Component Value Date FOLATE 11.0 04/14/2024 `Vitamin D 25-OH Level Date Value Ref Range Status 04/17/2025 38 30 - 60 ng/mL Final Lab Results Component Value Date TSH 1.50 04/15/2025 Lab Results Component Value Date COLORU Yellow 04/23/2025 CLARITYU Clear 04/23/2025 LABPH 6.0 04/23/2025 PROTEINUR Negative 04/23/2025 GLUCOSEU Negative 04/23/2025 KETONESU Negative 04/23/2025 BLOODU Negative 04/23/2025 LEUKOCYTEUR Negative 04/23/2025 NITRITE Negative 04/23/2025 SEDIMENT NOT DONE 05/29/2013 WBCU 0 04/23/2025 RBCU <1 04/23/2025 HYALINECAST <=10 12/01/2018 BACTERIA Few (A) 04/15/2024 Lab Results Component Value Date AMPHETUR Presumptive Negative 04/16/2025 BARBITUR Presumptive Negative 04/16/2025 BENZOURQL Presumptive Negative 04/16/2025 THCUR Presumptive Negative 04/16/2025 COCAINEMETUR Presumptive Negative 04/16/2025 LABMETH Presumptive Negative 04/16/2025 LABOPIA Presumptive Negative 04/16/2025 OXYCODNEU Presumptive Negative 04/16/2025 Last EKG ECG 12 lead Collection Time: 04/22/25 11:27 AM Result Value Ref Range Ventricular Heart Rate 119 BPM Atrial Heart Rate 119 BPM LA Interval 144 ms QRSD Interval 96 ms QT Interval 362 ms QTC Interval 509 ms P Mathews 58 degrees R Mathews -36 degrees T Wave Mathews 72 degrees Narrative Sinus tachycardia Left axis deviation / Left anterior hemiblock/fascicular block Minimal voltage criteria for LVH, may be normal variant Nonspecific ST-T wave abnormalities QTc prolongation When compared with ECG of 15-Apr-2025 18:53, rate faster. Frontal plane QRS axis slightly more leftward. *Note: Due to a large number of results and/or encounters for the requested time period, some results have not been displayed. A complete set of results can be found in Results Review. Clozapine level: 386 Norclozapine level: 140 (Collected 04/22) ASSESSMENT: Carter Raymundo is a 69 y.o. male with past psych history of schizoaffective disorder on clozapine,past medical history of hypertension, CKD, oropharyngeal dysphagia c/b frequent aspiration now s/p PEG, drug-induced Parkinsonism, who presented from nursing facility with altered mental status with unresponsiveness and aphasia, now medically cleared. Psychiatry initially consulted for assistance with diagnostic clarification, with initial differential ddx of catatonia vs delirium/encephalopathy vs decompensated psychosis. On evaluation today, patient presentation demonstrates some regression compared to previous improvements over time. He has been less cooperative with staff today, exhibiting some paranoia with them and this physician underwriter on interview. He is initially participatory in interview but then declines further engagement, possibly due to frustration though cannot rule out contribution of paranoia. Cognitive exam not able to be formally assessed. Most recent clozapine level (386) collected 04/22 appears therapeutic. There have been no acute safety concerns, however cannot justify de-escalation with current patient presentation. Would continue to monitor closely for signs of acute medical illness with more limited clinical data. Would prioritize improvements in sleep, regular bowel movements; note both sleep deprivation and constipation can worsen mental status. Patient presentation has been most consistent with acute delirium superimposed on known schizoaffective disorder. Catatonia is still less likely given isolated symptom of mutism without muscle rigidity/waxy flexibility, and also the limited effect of benzodiazepines on clinical course. Of note, patient also missed 2 doses of Sinemet and dose of Clozaril. Given ongoing work up of etiology behind this episode of AMS, would continue on current decreased dose of clozapine. Continue home Wellbutrin,gabapentin, and trazodone. Please ensure regular bowel movements. Patient on section 12 due to inability to care for self and acute risk of psychiatric decompensation, bed search in progress. DSM-5 DIAGNOSIS: Schizoaffective disorder Delirium RECOMMENDATIONS: #LEGAL Patient remains on section 12, cannot leave AMA, bed search in progress Continue 1:1 sitter #Work Up Patient vitals significant for tachycardia (128), repeat labs notable for white count (15). - Would repeat broad infectious work up, including CXR, UA - Please continue to monitor vitals closely - Defer to primary team regarding repeat HCT, EEG - Consider involving neurology consult team for additional considerations #MEDICATIONS Please continue clozapine dose: 25 mg QAM, 125 mg QHS Continue Wellbutrin 100 mg TID Continue gabapentin 100 mg BID Continue ramelteon 8 mg QHS Continue trazodone 150 mg QHS Can offer Seroquel 50 mg TID PRN for anxiety, irritability, agitation Essential that patient has regular bowel movements while on clozapine Consider KUB, defer optimizing bowel regimen to primary team Continue delirium precautions Recommendations communicated to primary team. Kimani Rivas MD PGY2, Department of Psychiatry [id number] Case seen with Dr. Kymberly Mata, attending psychiatrist. [1] atorvaSTATin, 20 mg, G-tube, QHS buPROPion, 100 mg, G-tube, TID carbidopa-levodopa, 2 tablet, G-tube, TID cloZAPine, 125 mg, G-tube, QHS cloZAPine, 25 mg, Oral, Daily enoxaparin, 40 mg, Subcutaneous, Q24H CLAUDIA famotidine, 20 mg, G-tube, BID gabapentin, 100 mg, G-tube, BID gabapentin, 300 mg, G-tube, QHS hydrOXYzine HCL, 25 mg, Intramuscular, Once multivitamin with minerals, 15 mL, Oral, Daily sodium chloride, 3 mL, Intravenous, Q12H CLAUDAI potassium chloride ER, 60 mEq, Oral, Once ramelteon, 8 mg, Oral, QHS sennosides, 17.6 mg, G-tube, BID tamsulosin, 0.4 mg, G-tube, QHS traZODone, 150 mg, G-tube, Nightly [2] [3] calcium carbonate guaiFENesin hydrOXYzine HCL Insert and Maintain Peripheral IV AND sodium chloride AND sodium chloride QUEtiapine Cosigned by Kymberly Mata MD at 04/27/2025 9:56 PM EDT Associated attestation - Kymberly Mata MD - 04/27/2025 9:56 PM EDT I was present with the resident during the evans portions of the service. I discussed the case with the resident and agree with the findings and plan as documented in the resident's note with the following addendum: Pt seen after triggered for altered mental status. He had received lorazepam 1mg about 30min prior.On evaluation, he is lying in bed with eyes closed, breathing regularly. Not arousable to voice or sternal rub. Permits eye opening. Not tracking or following commands. No rigidity or opposition to movement. No posturing or waxy flexibility. Normal tone. No grasp reflex elicited. Pt missed doses of medications this morning, including bupropion, Sinemet, Lovenox, famotidine, gabapentin, MVI, Ramelteon. EEG on 04/24 was normal. VS afebrile, P 128, RR 18, BP 152/98, SaO2 98% BUN 31, Gluc 132, Alk Phos 177, WBC 15.51 Etiology for recurrent episodes of unresponsiveness remains unspecified. He has presented with concern for catatonia earlier in hospital course. Presents today with depressed level of arousal withoutmotor findings clearly c/w catatonia and no response to lorazepam 1mg trial. EEG from 04/24 was negative for both generalized slowing and activity c/w seizure. NCHCT negative for stroke or bleed. Todaypresenting with increased heart rate, bp and leukocytosis. Abdomen distended. No rebound/rigidity or guarding. Continues on clozapine which can be sedating. Unclear if any contribution from missing doses of Sinemet. Agree with consideration of repeat infectious work up and KUB. May benefit from further input from neurology for recurrent episodes of altered mental status. Earlier in the day presented with ongoing paranoia and refusal of care c/w underlying psychotic process. Please also clarify with HCP and legal re: affirming HCP for regular medication administration. * Karrie Starks MD - 04/27/2025 7:01 AM EDT Images from the original note were not included. [facility] Department of Medicine [facility] Medicine Progress Note Patient: Carter Raymundo Admission Date: 04/15/2025 Length of Stay: 11 PCP: Kilo Huynh Attending: Bonifacio Agudelo MD Chief Complaint: Altered Mental Status OVERNIGHT EVENTS Seen by psych in the evening, did not recommend any medication changes. 11:31 PM: Told his sitter that he thought there was a man in the room pushing him. When she tried to ask him about it, he said they needed to stop talking about it. He also asked that she not tell anyone, nurse went in to ask him how he's feeling, he's denying any issues. 11:45 AM: Trigger for AMS. Patient seen at bedside, staring into space, not responsive to name. Vitals unremarkable. Per resource RN at bedside, his behaviors are similar to the trigger he had the previous week for AMS. Patient helped back into bed. Given Sinemet. SUBJECTIVE Says he doesn't believe that I am the new resident taking care of him. Does not want to get vitals done or take any of his medications, including clozapine. Says he feels well and does not need any medications. OBJECTIVE DATA VITALS T 98.5 ??F (36.9 ??C) HR (!) 96 BP 121/76 RR 18 SpO2 98 % O2 Device: None (Room air) 75.8 kg (167 lb 1.7 oz) Body mass index is 23.31 kg/m??. PHYSICAL EXAM GENERAL: NAD, sitting in chair comfortably. HEENT: No scleral icterus, moist mucous membranes. CARDIAC: Clinically well perfused. LUNG: Appears in no respiratory distress. No accessory muscle use. ABD: No abdominal abnormalities on inspection. MSK: No focal joint swelling or deformities. NEURO: Alert, oriented. EOMI. Face symmetric, speech normal. Moving all extremities against gravity. SKIN: No significant rashes, sores or wounds noted on exposed skin. PSYCH: Calm. Paranoid. LABS, MICROBIOLOGY and STUDIES reviewed in Epic. ASSESSMENT & PLAN Carter Raymundo is a 69 y.o. male with a relevant past medical history of HTN, CKD, schizoaffectivedisorder, and drug-induced parkinsonism, who presented with unresponsiveness, asphaia, and possibleleft facial droop. CT and MRI head r/o stroke, and TME workup negative. Transient hypoxia in ED without fever, leukocytosis, and any localizing signs and symptoms points toward potential aspiration pneumonitis. Patient admitted to medicine for monitoring and re- initation of clozapine dosing, now medically stable pending inpatient psych placement for decompensated schizoaffective disorder. ACTIVE ISSUES # Brief episode of unresponsiveness # Schizoaffective disorder Patient presented with acute onset of unresponsiveness and aphasia. Also concern for facial asymmetry, however, per chart review, this is chronic. Etiology of altered mental status unclear. Code stroke activated upon presentation, however, CT/CTA head and neck did not reveal any acute intracranial abnormalities. Initially given lorazepam for concern for catatonia. Patient became more responsive following this. Has not needed additional doses since then with no further signs of catatonia, so mayhave been an episode of transient catatonia. May have occurred in the setting of missed medication doses that morning. Per chart reivew and brother's report patient's dose of clozapine has also been c hanged recently. Work-up for toxic-metabolic encephalopathy has been negative. Pt had another episode of unresponsiveness on 04/22, see trigger note from that date. Another trigger called on 04/27 as above. Unclear etiology of repeated episodes of unresponsiveness, but wondering if it could be in the setting of missing medications, especially home Sinemet. - BMP, CBC following trigger were largely unremarkable except for leukocytosis. He has no other infectious symptoms at this time and vitals are normal, so will repeat labs tomorrow AM and hold off onadditional infectious workup for now - Psych following, appreciate recs. - C/h buproprion 100mg TID - C/h clozapine (doses recently changed, confirmed most recent dose with Gemma Cain): 125 mg atnight, 25 mg in the morning - C/h trazodone 150mg qHs; added 12.5mg BID PRN for anxiety and irritability - Ramelteon 8 mg at bedtime - Hydroxizine 75 mg prn, Seroquel 50 mg prn - d/c lorazapam (initially started due to c/f catatonia) - Per psych meets section 12 criteria, cannot leave AMA - CBC with diff shows normal ANC - Patient is medically clear for psych bed placement, will encourage to work with PT and get out ofbed as able # Dysphagia with G tube reliance Patient with history of oropharyngeal dysphagia. Pulled out G tube 04/19 AM - G tube replaced by IR on 04/19 PM, ok to use # Transient hypoxia # C/f aspiration pneumonitis Patient with episode of hypoxia in ED, quickly resolved without intervention. Patient with history of oropharyngeal dysphagia with G tube in place. Confirmed with Gemma Cain RN that patient is currently on pureed diet with SOLAR DESIGN ENGINEER at their facility following. High risk for aspiration and given transient nature suspect this was the driving etiology of hypoxia. CXR with unclear opacification, then obtained lateral view which showed some streakiness c/f atelectasis vs infection. Given lack of fevers, cough, and leukocytosis, low clinical suspicion for pneumonia and will defer Abx for now. - Continue pureed diet - Deferring SOLAR DESIGN ENGINEER for now - Nutrition consulted, appreciate recs - Consider out pt sleep study - CXR with no infiltrates 04/22 # Sinus Tachycardia Pt consistently tachycardic in 90s - low 100s during this hospitalization. EKG's to date all consistent with sinus tachycardia. #Productive cough Low c/f PNA. Added guaifenesin PRN. CHRONIC / STABLE ISSUES # Drug-induced Parkinsonism - C/h sinemet # CAD # HTN - C/h statin [] TI: Consideration of ASA # CKD - Trending Cr, currently at baseline # BPH - C/h tamsulosin # GERD - C/h pepcid CORE MEASURES - FEN: IVF PRN, replenish electrolytes, Diet Modified Texture; Pureed; Thin Liquids; Deliver To Nursing, Finger Foods/No Utensils, No Sharps, Safety Tray - PAML complete - Functional Status: Independent without use of assistive devices for ambulation - DVT prophylaxis: SC low molecular weight heparin - Access: peripheral IV x1 - Code: Full Code - Contact: brother Lr, Patient Contacts Name Legal Rel Relationship Phone Active Delvin Raymundo Brothmarisa - Disposition: -- Anticipated discharge to: nursing home facility -- Anticipated discharge date: t+2 -- Anticipated discharge barriers: Completion of evaluation for altered mental status Extended Emergency Contact Information Primary Emergency Contact: Delvin Raymundo Mobile Relation: Brother Silver Solderer needed? No Karrie Starks MD Dept of Medicine Cosigned by Mildred Srinivasan MD at 04/27/2025 3:55 PM EDT Associated attestation - Mildred Srinivasan MD - 04/27/2025 3:55 PM EDT I have seen and examined Mr. Raymundo, reviewed the findings and plan of care as documented by Karrie Starks MD and agree, except for any additional comments below. Patient triggered for altered mental status today. He was given lorazepam for possible catatonia without significant response. He has had similar episodes in the past in the setting of not taking hismeds, which has also been the case over the past 24 hours. Medical workup significant for WBC count15. No localizing signs/symptoms of infection at this time so will trend for now. A total of of [] 25 minutes [] 35 minutes [x] greater than 50 minutes was spent personally by me onencounter today, including but not limited to review of data in electronic medical record, [id number] evaluation, documentation, and coordination of care. Mildred Srinivasan MD Section of Hospital Medicine [facility] * Salomon Haile MD - 04/26/2025 6:43 PM EDT Images from the original note were not included. [facility] PSYCHIATRIC CONSULTATION FOLLOW-UP NOTE INTERVAL HPI: No acute events overnight. Bed search in progress. No PRN utilized. On interview, patient is pleasant and engaged, sitting in a chair. He reports that he slept well last night, though still feels tired. Had a big breakfast this morning, looking forward to dinner. Endorses feeling a little foggy. Denies depressed mood, anxiety, AVH, SI, HI, paranoia. Feels safe in the hospital. No issues with medications. Reports has not had a BM in a few days, declined bowel regimen; he explained that he knows when he is constipated from clozapine and he is not currently, denies abdominal pain or nausea. Feels that he is doing much better now, feels that inpatient psych admission may not be necessary. Understands that Psychiatry will continue to assess if de-escalation is possible but for now bed search continues. REVIEW OF SYSTEMS: As per HPI EXAM: 04/26/2025 3:33 PM Vital Signs Temperature 98.5 ??F (36.9 ??C) Heart Rate 96 Respiration 18 SpO2 98 % Blood Pressure 121/76 Cognitive: Wakefulness/alertness: Awake and alert Orientation: Oriented to place, year,, not day of week (thought it was Sunday) Attention: Able to spell WORLD backwards after pausing on W for a long time Calculations: 7 quarters in $1.75 Memory: Deferred Abstraction: It's always darkest before the carroll = I'm not sure Fund of knowledge: Intact to last 3 presidents Language: Fluent in Thai, no paraphasic errors Executive function: Verbal trails B to 7G with no errors Mental Status: Appearance: Mildly disheveled, unkempt wayne, wearing hospital gown, appears older than stated age Behavior: Calm, cooperative, fair eye contact, no PMA/PMR noted Mood: Fine Affect: Calm, euthymic, reactive Speech: Normal rate, volume, prosody Thought process: Linear, organized, mildly perseveration on discharge Thought content and perceptions: Denies SI, HI, AVH Insight and judgment: Limited but improving MEDICATIONS: Scheduled Meds:Scheduled Medications[1] Continuous Infusions:Infusions Meds[2] PRN Meds:.PRN Medications[3] DATA: Lab Results Component Value Date WBC 9.98 04/24/2025 HGB 12.4 (L) 04/24/2025 HCT 36.2 (L) 04/24/2025 MCV 93 04/24/2025 PLT 287 04/24/2025 Lab Results Component Value Date GLUCOSE 154 (H) 04/24/2025 CALCIUM 9.2 04/24/2025 NA 141 04/24/2025 K 3.9 04/24/2025 CO2 26 04/24/2025 CL 104 04/24/2025 BUN 35 (H) 04/24/2025 CREATININE 0.90 04/24/2025 Lab Results Component Value Date ALT <5 04/22/2025 AST 17 04/22/2025 ALKPHOS 161 (H) 04/22/2025 BILITOT 0.3 04/22/2025 Lab Results Component Value Date CORONAVIRUS Negative 04/16/2025 Lab Results Component Value Date [id number] 04/14/2024 Lab Results Component Value Date FOLATE 11.0 04/14/2024 `Vitamin D 25-OH Level Date Value Ref Range Status 04/17/2025 38 30 - 60 ng/mL Final Lab Results Component Value Date TSH 1.50 04/15/2025 Lab Results Component Value Date COLORU Yellow 04/23/2025 CLARITYU Clear 04/23/2025 LABPH 6.0 04/23/2025 PROTEINUR Negative 04/23/2025 GLUCOSEU Negative 04/23/2025 KETONESU Negative 04/23/2025 BLOODU Negative 04/23/2025 LEUKOCYTEUR Negative 04/23/2025 NITRITE Negative 04/23/2025 SEDIMENT NOT DONE 05/29/2013 WBCU 0 04/23/2025 RBCU <1 04/23/2025 HYALINECAST <=10 12/01/2018 BACTERIA Few (A) 04/15/2024 Lab Results Component Value Date AMPHETUR Presumptive Negative 04/16/2025 BARBITUR Presumptive Negative 04/16/2025 BENZOURQL Presumptive Negative 04/16/2025 THCUR Presumptive Negative 04/16/2025 COCAINEMETUR Presumptive Negative 04/16/2025 LABMETH Presumptive Negative 04/16/2025 LABOPIA Presumptive Negative 04/16/2025 OXYCODNEU Presumptive Negative 04/16/2025 Last EKG ECG 12 lead Collection Time: 04/22/25 11:27 AM Result Value Ref Range Ventricular Heart Rate 119 BPM Atrial Heart Rate 119 BPM LA Interval 144 ms QRSD Interval 96 ms QT Interval 362 ms QTC Interval 509 ms P Mathews 58 degrees R Mathews -36 degrees T Wave Mathews 72 degrees Narrative Sinus tachycardia Left axis deviation / Left anterior hemiblock/fascicular block Minimal voltage criteria for LVH, may be normal variant Nonspecific ST-T wave abnormalities QTc prolongation When compared with ECG of 15-Apr-2025 18:53, rate faster. Frontal plane QRS axis slightly more leftward. *Note: Due to a large number of results and/or encounters for the requested time period, some results have not been displayed. A complete set of results can be found in Results Review. ASSESSMENT: Carter Raymundo is a 69 y.o. male with past psych history of schizoaffective disorder on clozapine,past medical history of hypertension, CKD, oropharyngeal dysphagia c/b frequent aspiration now s/p PEG, drug-induced Parkinsonism, who presented from nursing facility with altered mental status with unresponsiveness and aphasia, now medically cleared. Psychiatry initially consulted for assistance with diagnostic clarification, with initial differential ddx of catatonia vs delirium/encephalopathy vs decompensated psychosis. On evaluation today, patient presentation is improved in regards to mental status and cognition. Hehas been more cooperative, less paranoid, accepting medications, working with staff. He is conversant and readily engageable on interview. Denies SI, HI, AVH. Cognitive exam notable for mild deficitsin orientation and attention but improved from prior exams. Current presentation is most consistent with acute delirium superimposed on known schizoaffective disorder. Catatonia is now less likely, especially given limited effect of benzodiazepines on clinical course. Given ongoing work up of etiology behind recent episode of AMS, would continue on current decreased dose of clozapine. Continue home Wellbutrin, gabapentin, and trazodone. Monitor bowel movements and encourage patient to utilize bowl regimen. Patient on section 12 due to inability to care for self and acute risk of psychiatric decompensation, bed search in progress. DSM-5 DIAGNOSIS: Schizoaffective disorder Delirium, resolving RECOMMENDATIONS: #LEGAL Patient remains on section 12, cannot leave AMA, bed search in progress Continue 1:1 sitter, can likely discontinue early next week #MEDICATIONS Continue clozapine 25 mg QAM, 125 mg QHS Continue Wellbutrin 100 mg TID Continue gabapentin 100 mg BID Continue ramelteon 8 mg QHS Continue trazodone 150 mg QHS Can offer Seroquel 50 mg TID PRN for anxiety, irritability, agitation Essential that patient has regular bowel movements while on clozapine Delirium precautions Recommendations communicated to primary team. Salomon Haile MD PGY3, Department of Psychiatry [id number] [1] atorvaSTATin, 20 mg, G-tube, QHS buPROPion, 100 mg, G-tube, TID carbidopa-levodopa, 2 tablet, G-tube, TID cloZAPine, 125 mg, G-tube, QHS cloZAPine, 25 mg, Oral, Daily enoxaparin, 40 mg, Subcutaneous, Q24H CLAUDIA famotidine, 20 mg, G-tube, BID gabapentin, 100 mg, G-tube, BID gabapentin, 300 mg, G-tube, QHS multivitamin with minerals, 15 mL, Oral, Daily sodium chloride, 3 mL, Intravenous, Q12H CLAUDIA potassium chloride ER, 60 mEq, Oral, Once ramelteon, 8 mg, Oral, QHS sennosides, 17.6 mg, G-tube, BID tamsulosin, 0.4 mg, G-tube, QHS traZODone, 150 mg, G-tube, Nightly [2] [3] calcium carbonate guaiFENesin hydrOXYzine HCL Insert and Maintain Peripheral IV AND sodium chloride AND sodium chloride QUEtiapine * Noe Ruiz MD - 04/26/2025 1:30 PM EDT Patient's usual tube feed (2 sundar HN) currently unavailable. Will plan to use 1.2 Jevity instead while supply can be found. * Param Mg, PT - 04/26/2025 11:13 AM EDT PHYSICAL THERAPY PROGRESS NOTE Rehabilitation Services - Inpatient Physical Therapy Level of Care: Floor Interdisciplinary Recommendations PT Discharge rec: (Pending inpatient psych bed) Movement Precautions: Fall risk Recommendations: [x]Patient is at high risk for deconditioning. Please maximize independence in ADLs and encourage frequent mobility including: Assist of x1-2 for out of bed to chair with RW 3x/day []Patient is at risk for pressure injury. Please limit sitting time to one hour on standard air cushion given patient???s inability to effectively reposition in chair. [x]Patient is at risk for falls. Please use chair alarm when out of bed. [x]Patient is at risk for delirium. Please consider implementing strategies to reduce risk including: OOB to chair 3 day for all meals Familiar pictures and items within view News or nonverbal music on during daytime Lights on during day with shades UP Frequent Reorientation to clock, calendar, and window Encourage participation with ADLs Encourage family presence at bedside *For questions please check the patient???s care team for the most updated PT contact information [x]Updated medical status including labs, radiology, procedures and medications since previous visit reviewed Subjective: I'm not going to be able to take anymore steps, I feel too weak when asked to ambulate within room or towards the door. Patient-Stated Goal: I want to get stronger so I can move again Objective: Hemodynamic Response/Aerobic Capacity VSS throughout Functional Mobility Bed Mobility: Rolling: Modified Charles Supine to Sit: Minimal assistance (needed cueing for sequencing and a little encouragement) Adaptive Equipment: HOB elevated, Side rails Sit to Supine: Activity does not occur Transfers: Sit to Stand: Minimal assistance (Required cueing for foot placement, improved sit to stand to leanforward and use momentum.) Stand to Sit: Contact guard Bed to chair: Minimal assistance Transfer aid: Walker Transfer Barriers: Balance, Fatigue, Gross motor strength Gait Belt Used For Transfers: Yes Gait: Ambulation Assistance: Activity does not occur Stairs: Stair Assistance: Activity does not occur Balance: Sitting - Static: Supervision Sitting - Dynamic: Contact guard Standing - Static: Minimal assistance, With assistive device Standing - Dynamic: Activity does not occur Balance Interventions: Sitting reaching activities, Standing with manual challenges Pain: Denies pain throughout session Limiting Symptoms: Nausea Other Tests and Measures: Cognition: Level of Consciousness: Alert Orientation Level: Oriented to person, Oriented to place Oriented to: Name, Date of , Month, Year, Name of hospital Disoriented to: Day, Date (believed it was Sunday and it was the . When corrected he replied with well, that's actually not write ) Following Directions: Follows all directions without difficulty Success rate following directions: 100% of the time Patient Behaviors/Mood: Calm, Appropriate Intervention: Therapeutic activities Functional mobility training Patient/Caregiver Education RE: []Role of PT [x]PT plan of care [x]Fall risk reduction [x]Discharge recommendations [x]Mobility Recommendations []Other: []Silver Solderer utilized for session Team Communication: Communicated with [x]RN [x]MD []OT []CM RE: Patient status []Patient discussed at interdisciplinary team rounds. Pt left seated with all needs in reach with sitter present Assessment Carter Raymundo is a 69 y.o. male with a history of HTN, CKD, schizoaffective disorder, and drug-induced parkinsonism who presents to physical therapy during hospitalization for unresponsiveness, asphaia, and possible left facial droop, workup negative, however found to have aspiration pneumonitis. Pt continues to well below baseline limited by impairments in body structure and function as listedabove. Pt???s primary impairment/activity limitation is functional mobility, activity, and impaireddynamic balance which is likely due to deconditioning 2/2 prolonged hospitalization. PT attempted/encouraged pt to have pt progress his ambulation distance, providing education on increasing upright activity to promote strength and activity tolerance but pt was unwilling to progress, reporting reduced energy levels. Patient currently waiting for inpatient psych bed. Acute PT will continue to follow and progress per POC.Patient has good potential to return to PLOF based on positive prognostic indicators includingAge, Baseline level of function, Motivated. Progress may be slowed by potentially limiting prognostic indicators including Multiple co-morbidities, Impaired cognition Treatment Plan: Balance training, Bed mobility, Gait training/stairs, Exercise prescription, Therapeutic Exercise, Transfer training Patient agrees with the above goals and is willing to participate in the rehabilitation program: Yes Time: [id number] Physical Therapist Name: [place] [id number] Physical Therapist Pager: [phone] * Noe Ruiz MD - 04/26/2025 7:13 AM EDT Images from the original note were not included. [facility] Department of Medicine [facility] Medicine Progress Note Patient: Carter Raymundo Admission Date: 04/15/2025 Length of Stay: 10 PCP: Kilo Huynh Attending: Bonifacio Agudelo MD Chief Complaint: Altered Mental Status OVERNIGHT EVENTS NAEON SUBJECTIVE Pt feels okay this morning, complaining of a productive cough. No SOB. Has not gotten out of bed. OBJECTIVE DATA VITALS T 98 ??F (36.7 ??C) HR 90 BP 121/79 RR 18 SpO2 96 % O2 Device: None (Room air) 75.8 kg (167 lb 1.7 oz) Body mass index is 23.31 kg/m??. PHYSICAL EXAM GENERAL: NAD, lying in bed comfortably. HEENT: No scleral icterus, moist mucous membranes. CARDIAC: Regular rate and rhythm, no murmurs, rubs, or gallops; extremities warm, well perfused, nolower extremity edema. LUNG: Appears in no respiratory distress. No accessory muscle use. Some coarse airway sounds b/l but no crackles or wheezes. ABD: Abdomen soft, nontender, nondistended without rebound tenderness or guarding. MSK: No focal joint swelling or deformities. NEURO: Alert, oriented. EOMI. Face symmetric, speech normal. Moving all extremities against gravity. SKIN: No significant rashes, sores or wounds noted on exposed skin. PSYCH: pleasant, engaging in conversation this morning. LABS, MICROBIOLOGY and STUDIES reviewed in Epic. ASSESSMENT & PLAN Carter Raymundo is a 69 y.o. male with a relevant past medical history of HTN, CKD, schizoaffectivedisorder, and drug-induced parkinsonism, who presented with unresponsiveness, asphaia, and possibleleft facial droop. CT and MRI head r/o stroke, and TME workup negative. Transient hypoxia in ED without fever, leukocytosis, and any localizing signs and symptoms points toward potential aspiration pneumonitis. Patient admitted to medicine for monitoring and re- initation of clozapine dosing, now medically stable pending inpatient psych placement for decompensated schizoaffective disorder. ACTIVE ISSUES # Brief episode of unresponsiveness # Schizoaffective disorder Patient presented with acute onset of unresponsiveness and aphasia. Also concern for facial asymmetry, however, per chart review, this is chronic. Etiology of altered mental status unclear. Code stroke activated upon presentation, however, CT/CTA head and neck did not reveal any acute intracranial abnormalities. Initially given lorazepam for concern for catatonia. Patient became more responsive following this. Has not needed additional doses since then with no further signs of catatonia, so mayhave been an episode of transient catatonia. May have occurred in the setting of missed medication doses that morning. Per chart reivew and brother's report patient's dose of clozapine has also been c hanged recently. Work-up for toxic-metabolic encephalopathy has been negative. Pt had another episode of unresponsiveness on 04/22, see trigger note from that date. - Psych following, appreciate recs - C/h buproprion 100mg TID - C/h clozapine (doses recently changed, confirmed most recent dose with Gemma Cain): 125 mg atnight, 25 mg in the morning - C/h trazodone 150mg qHs; added 12.5mg BID PRN for anxiety and irritability - Ramelteon 8 mg at bedtime - Hydroxizine 75 mg prn, Seroquel 50 mg prn - d/c lorazapam (initially started due to c/f catatonia) - Per psych meets section 12 criteria, cannot leave AMA - CBC with diff shows normal ANC - Patient is medically clear for psych bed placement, will encourage to work with PT and get out ofbed as able # Dysphagia with G tube reliance Patient with history of oropharyngeal dysphagia. Pulled out G tube 04/19 AM - G tube replaced by IR on 04/19 PM, ok to use # Transient hypoxia # C/f aspiration pneumonitis Patient with episode of hypoxia in ED, quickly resolved without intervention. Patient with history of oropharyngeal dysphagia with G tube in place. Confirmed with Gemma Cain RN that patient is currently on pureed diet with SOLAR DESIGN ENGINEER at their facility following. High risk for aspiration and given transient nature suspect this was the driving etiology of hypoxia. CXR with unclear opacification, then obtained lateral view which showed some streakiness c/f atelectasis vs infection. Given lack of fevers, cough, and leukocytosis, low clinical suspicion for pneumonia and will defer Abx for now. - Continue pureed diet - Deferring SOLAR DESIGN ENGINEER for now - Nutrition consulted, appreciate recs - Consider out pt sleep study - CXR with no infiltrates 04/22 # Sinus Tachycardia Pt consistently tachycardic in 90s - low 100s during this hospitalization. EKG's to date all consistent with sinus tachycardia. #Productive cough Low c/f PNA. Added guaifenesin PRN. CHRONIC / STABLE ISSUES # Drug-induced Parkinsonism - C/h sinemet # CAD # HTN - C/h statin [] TI: Consideration of ASA # CKD - Trending Cr, currently at baseline # BPH - C/h tamsulosin # GERD - C/h pepcid CORE MEASURES - FEN: IVF PRN, replenish electrolytes, Diet Modified Texture; Pureed; Thin Liquids; Deliver To Nursing, Finger Foods/No Utensils, No Sharps, Safety Tray - PAML complete - Functional Status: Independent without use of assistive devices for ambulation - DVT prophylaxis: SC low molecular weight heparin - Access: peripheral IV x1 - Code: Full Code - Contact: brother Lr, Patient Contacts Name Legal Rel Relationship Phone Active Delvin Raymundo Brothmarisa - Disposition: -- Anticipated discharge to: nursing home facility -- Anticipated discharge date: t+1 -- Anticipated discharge barriers: Completion of evaluation for altered mental status Extended Emergency Contact Information Primary Emergency Contact: Delvin Raymundo Mobile Relation: Brother Silver Solderer needed? No Noe Ruiz MD Dept of Medicine Cosigned by Bonifacio Agudelo MD at 04/26/2025 1:33 PM EDT Associated attestation - Bonifacio Agudelo MD - 04/26/2025 1:33 PM EDT I have seen and examined Mr. Raymundo, reviewed the findings and plan of care as documented by MD Dio and agree, except for any additional comments below. No overnight events documented. This morning, he is not very talkative but denies any specific complaints. He seems willing to try to get out of bed today. His exam is unchanged and agree with documentation. Labs reviewed in detail. He has decompensated schizoaffective disorder and is on split dose clozapine. He is also on [id number] hoping to discharge him to for inpatient psychiatric treatment. He continues tube feeds G-tube and we are encouraging oral intake as well. We also are encouraging mobilization and ambulation and have consulted PT. He had a prior unresponsive episode last week but EEG was negative for seizure Charisse felt that was likely psychogenic in nature. Otherwise, I agree with rest of the plan as noted here. Bonifacio Agudelo MD Section of Hospital Medicine [facility] * Juliet Becerra MD - 04/25/2025 8:39 AM EDT Images from the original note were not included. [facility] Department of Medicine [facility] Medicine Progress Note Patient: Carter Raymundo Admission Date: 04/15/2025 Length of Stay: 9 PCP: Kilo Huynh Attending: Bonifacio Agudelo MD Chief Complaint: Altered Mental Status OVERNIGHT EVENTS NAEON Pt took his clozapine last night SUBJECTIVE Pt feels well this morning. Is happy to take his medications. Is going to walk around more and readhis book of plays today. OBJECTIVE DATA VITALS T 97.3 ??F (36.3 ??C) HR (!) 94 BP 138/89 RR 18 SpO2 96 % O2 Device: None (Room air) 75.8 kg (167 lb 1.7 oz) Body mass index is 23.31 kg/m??. PHYSICAL EXAM GENERAL: NAD, lying in bed comfortably. HEENT: No scleral icterus, moist mucous membranes. CARDIAC: Regular rate and rhythm, no murmurs, rubs, or gallops; extremities warm, well perfused, nolower extremity edema. LUNG: Appears in no respiratory distress. No accessory muscle use. Lung cortez clear to auscultation bilaterally, with no crackles, wheezes, or rhonchi. ABD: Abdomen soft, nontender, nondistended without rebound tenderness or guarding. MSK: No focal joint swelling or deformities. NEURO: Alert, oriented. EOMI. Face symmetric, speech normal. Moving all extremities against gravity. SKIN: No significant rashes, sores or wounds noted on exposed skin. PSYCH: pleasant, engaging in conversation this morning. LABS, MICROBIOLOGY and STUDIES reviewed in [facility]. ASSESSMENT & PLAN Carter Raymundo is a 69 y.o. male with a relevant past medical history of HTN, CKD, schizoaffectivedisorder, and drug-induced parkinsonism, who presents with unresponsiveness, asphaia, and possible left facial droop. CT and MRI head r/o stroke, and TME workup negative. Transient hypoxia in ED without fever, leukocytosis, and any localizing signs and symptoms points toward potential aspiration pneumonitis. Patient admitted to medicine for monitoring and re- initation of clozapine dosing ACTIVE ISSUES # Brief episode of unresponsiveness # Schizoaffective disorder Patient presented with acute onset of unresponsiveness and aphasia. Also concern for facial asymmetry, however, per chart review, this is chronic. Etiology of altered mental status unclear. Code stroke activated upon presentation, however, CT/CTA head and neck did not reveal any acute intracranial abnormalities. Initially given lorazepam for concern for catatonia. Patient became more responsive following this. Has not needed additional doses since then with no further signs of catatonia, so mayhave been an episode of transient catatonia. May have occurred in the setting of missed medication doses that morning. Per chart reivew and brother's report patient's dose of clozapine has also been c hanged recently. Work-up for toxic-metabolic encephalopathy has been negative. Pt had another episode of unresponsiveness on 04/22, see trigger note from that date. - Psych following, appreciate recs - C/h buproprion 100mg TID - C/h clozapine (doses recently changed, confirmed most recent dose with Gemma Cain): 125 mg atnight, 25 mg in the morning - C/h trazodone 150mg qHs; added 12.5mg BID PRN for anxiety and irritability - Ramelteon 8 mg at bedtime - Hydroxizine 75 mg prn, Seroquel 50 mg prn - d/c lorazapam (initially started due to c/f catatonia) - Meets section 12 criteria, cannot leave AMA - CBC with diff shows normal ANC - Patient is medically clear for psych bed placement # Dysphagia with G tube reliance Patient with history of oropharyngeal dysphagia. Pulled out G tube 04/19 AM - G tube replaced by IR on 04/19 PM, ok to use # Transient hypoxia # C/f aspiration pneumonitis Patient with episode of hypoxia in ED, quickly resolved without intervention. Patient with history of oropharyngeal dysphagia with G tube in place. Confirmed with Gemma Cain RN that patient is currently on pureed diet with [employer] DES[employer]INE[employer] at their facility following. High risk for aspiration and given transient nature suspect this was the driving etiology of hypoxia. CXR with unclear opacification, then obtained lateral view which showed some streakiness c/f atelectasis vs infection. Given lack of fevers, cough, and leukocytosis, low clinical suspicion for pneumonia and will defer Abx for now. - Continue pureed diet - Deferring [employer] for now - Nutrition consulted, appreciate recs - Consider out pt sleep study - CXR with no infiltrates 04/22 # Sinus Tachycardia Pt consistently tachycardic in 90s - low 100s during this hospitalization. EKG's to date all consistent with sinus tachycardia. CHRONIC / STABLE ISSUES # Drug-induced Parkinsonism - C/h sinemet # CAD # HTN - C/h statin [] TI: Consideration of ASA # CKD - Trending Cr, currently at baseline # BPH - C/h tamsulosin # GERD - C/h pepcid CORE MEASURES - FEN: IVF PRN, replenish electrolytes, Diet Modified Texture; Pureed; Thin Liquids; Deliver To Nursing, Finger Foods/No Utensils, No Sharps, Safety Tray - PAML complete - Functional Status: Independent without use of assistive devices for ambulation - DVT prophylaxis: SC low molecular weight heparin - Access: peripheral IV x1 - Code: Full Code - Contact: brother Lr, Patient Contacts Name Legal Rel Relationship Phone Active Delvin Raymundo Brother - Disposition: -- Anticipated discharge to: nursing home facility -- Anticipated discharge date: t+1 -- Anticipated discharge barriers: Completion of evaluation for altered mental status Extended Emergency Contact Information Primary Emergency Contact: Delvin Raymundo Mobile Relation: Brother Silver Solderer needed? No Juliet Becerra MD Dept of Medicine Cosigned by Bonifacio Agudelo MD at 04/25/2025 11:54 AM EDT Associated attestation - Bonifacio Agudelo MD - 04/25/2025 11:54 AM EDT I have seen and examined Mr. Raymundo, reviewed the findings and plan of care as documented by MD Rex and agree, except for any additional comments below. There were no overnight events. This morning he is sitting up in bed and denies any complaints. He does not answer questions fully but can answer basic questions. I agree with examination as documented. He is not back to his recent baseline with no evidence of seizure or neurologic decompensation. He continues his closet pain with split dosing as well as other psychiatric regimen. He remains on section 12. At this time he is medically stable to transfer to inpatient psych pending placement. We discussed increasing mobilization and oral intake in the interim. Bonifacio Agudelo MD Section of Hospital Medicine [facility] * Juliet Becerra MD - 04/24/2025 8:04 AM EDT Images from the original note were not included. [facility] Department of Medicine [facility] Medicine Progress Note Patient: Carter Raymundo Admission Date: 04/15/2025 Length of Stay: 8 PCP: Kilo Huynh Attending: Bonifacio Agudelo MD Chief Complaint: Altered Mental Status OVERNIGHT EVENTS NAEON Pt took his clozapine last night SUBJECTIVE Pt not responding to questions this morning. Was told by sitter that he was speaking 15 min prior to my entrance. Intermittently nods his head in response to my questions. OBJECTIVE DATA VITALS T 97.3 ??F (36.3 ??C) HR 88 BP 121/81 RR 16 SpO2 95 % O2 Device: None (Room air) 75.8kg (167 lb 1.7 oz) Body mass index is 23.31 kg/m??. PHYSICAL EXAM GENERAL: NAD, lying in bed comfortably. HEENT: No scleral icterus, moist mucous membranes. CARDIAC: Regular rate and rhythm, no murmurs, rubs, or gallops; extremities warm, well perfused, nolower extremity edema. LUNG: Appears in no respiratory distress. No accessory muscle use. Lung cortez clear to auscultation bilaterally, with no crackles, wheezes, or rhonchi. ABD: Abdomen soft, nontender, nondistended without rebound tenderness or guarding. MSK: No focal joint swelling or deformities. NEURO: Alert, oriented. EOMI. Face symmetric, speech normal. Moving all extremities against gravity. SKIN: No significant rashes, sores or wounds noted on exposed skin. PSYCH: not engaging in conversation this morning LABS, MICROBIOLOGY and STUDIES reviewed in Epic. ASSESSMENT & PLAN Carter Raymundo is a 69 y.o. male with a relevant past medical history of HTN, CKD, schizoaffectivedisorder, and drug-induced parkinsonism, who presents with unresponsiveness, asphaia, and possible left facial droop. CT and MRI head r/o stroke, and TME workup thus far negative. Transient hypoxia in ED without fever, leukocytosis, and any localizing signs and symptoms points toward potential aspiration pneumonitis. Patient admitted to medicine for monitoring. Per psych presentation most consistent with delirium, no obvious organic cause of TME found. ACTIVE ISSUES # Brief episode of unresponsiveness # Schizoaffective disorder Patient presented with acute onset of unresponsiveness and aphasia. Also concern for facial asymmetry, however, per chart review, this is chronic. Etiology of altered mental status unclear. Code stroke activated upon presentation, however, CT/CTA head and neck did not reveal any acute intracranial abnormalities. Initially given lorazepam for concern for catatonia. Patient became more responsive following this. Has not needed additional doses since then with no further signs of catatonia, so mayhave been an episode of transient catatonia. May have occurred in the setting of missed medication doses that morning. Per chart reivew and brother's report patient's dose of clozapine has also been c hanged recently. Work-up for toxic-metabolic encephalopathy has been negative. Pt had another episode of unresponsiveness on 04/22, see trigger note from that date. - Psych following, appreciate recs - C/h buproprion 100mg TID - C/h clozapine (doses recently changed, confirmed most recent dose with Gemma Cain): 125 mg atnight, 25 mg in the morning - C/h trazodone 150mg qHs; added 12.5mg BID PRN for anxiety and irritability - Ramelteon 8 mg at bedtime - Hydroxizine 75 mg prn, Seroquel 50 mg prn - d/c lorazapam (initially started due to c/f catatonia) - Meets section 12 criteria, cannot leave AMA - CBC with diff for tomorrow # Dysphagia with G tube reliance Patient with history of oropharyngeal dysphagia. Pulled out G tube 04/19 AM - G tube replaced by IR on 04/19 PM, ok to use # Transient hypoxia # C/f aspiration pneumonitis Patient with episode of hypoxia in ED, quickly resolved without intervention. Patient with history of oropharyngeal dysphagia with G tube in place. Confirmed with Gemma Cain RN that patient is currently on pureed diet with [employer] DES[employer]INEER at their facility following. High risk for aspiration and given transient nature suspect this was the driving etiology of hypoxia. CXR with unclear opacification, then obtained lateral view which showed some streakiness c/f atelectasis vs infection. Given lack of fevers, cough, and leukocytosis, low clinical suspicion for pneumonia and will defer Abx for now. - Continue pureed diet - Deferring [employer] DES[employer] for now - Nutrition consulted, appreciate recs - Consider out pt sleep study - CXR with no infiltrates 04/22 CHRONIC / STABLE ISSUES # Drug-induced Parkinsonism - C/h sinemet # CAD # HTN - C/h statin [] TI: Consideration of ASA # CKD - Trending Cr, currently at baseline # BPH - C/h tamsulosin # GERD - C/h pepcid CORE MEASURES - FEN: IVF PRN, replenish electrolytes, Diet Modified Texture; Pureed; Thin Liquids; Deliver To Nursing, Finger Foods/No Utensils, No Sharps, Safety Tray - PAML complete - Functional Status: Independent without use of assistive devices for ambulation - DVT prophylaxis: SC low molecular weight heparin - Access: peripheral IV x1 - Code: Full Code - Contact: brother Lr, Patient Contacts Name Legal Rel Relationship Phone Active Delvin Raymundo Brother - Disposition: -- Anticipated discharge to: nursing home facility -- Anticipated discharge date: t+2 -- Anticipated discharge barriers: Completion of evaluation for altered mental status, re-initiation of clozapine per psychiatry Extended Emergency Contact Information Primary Emergency Contact: Delvin Raymundo Mobile Relation: Brother Silver Solderer needed? No Juliet Becerra MD Dept of Medicine Cosigned by Bonifacio Agudelo MD at 04/24/2025 12:11 PM EDT Associated attestation - Bonifacio Agudelo MD - 04/24/2025 12:11 PM EDT I have seen and examined Mr. Raymundo, reviewed the findings and plan of care as documented by MD Rex and agree, except for any additional comments below. This morning he is awake to me and answers Argyle to basic questions about symptoms. He denies anysymptoms for me. His exam is unchanged. EEG results reviewed in detail. He continues to have decompensated schizoaffective disorder on clozapine. We have the dosing again as he seems to tolerate this better. EEG is negative for seizure activity and this can be discontinued. He has no other concerning toxic, metabolic, infectious signs or symptoms. At this time he is medically stable for inpatient psychiatric hospitalization when available. Bonifacio Agudelo MD Section of Hospital Medicine [facility] * Alex Goetz MD - 04/23/2025 3:20 PM EDT Images from the original note were not included. [facility] Department of Psychiatry Consultation Liaison Service [facility] PSYCHIATRIC CONSULTATION FOLLOW-UP Date of Service: 04/23/2025 Patient: Carter Raymundo : 1955 Admission Date: 04/15/2025 Length of Stay: 7 Chief Complaint: altered mental status OVERNIGHT EVENTS No acute events reported overnight or during the day prior to evaluation SUBJECTIVE The patient was amenable to speaking with Dr. Erick Goetz after introduction as Psychiatry. He noted noconcerns. When asked about his sleep last night he noted, well I initially thought I had 8 hours of sleep but apparently it was much less than that. He denied waking up overnight or remembering whether he had. He denied nightmares. He denied moments where he did not know where he was. He denied seeing things in the hospital that typically aren't there such as small animals or children. He noted no concerns. He also could not recall what he was in the hospital being treated for. He initially consented to mental status exam. During the mental status exam the patient abruptly said I don't think I would like to participate in this anymore. He then stared at this MD unblinkingly anddid not say anything. The interview was prematurely terminated. Psychological ROS: positive for - disorientation and memory difficulties negative for - concentration difficulties, mood swings, obsessive thoughts, or suicidal ideation OBJECTIVE DATA VITALS T 98.3 ??F (36.8 ??C) HR (!) 94 BP 125/73 RR 18 SpO2 98 % O2 Device: None (Room air) 75.8 kg (167 lb 1.7 oz) Body mass index is 23.31 kg/m??. Mental Status Exam Neurological: Motor: moved all limbs antigravity Station and gait: did not observe ambulation Cognitive: Wakefulness/alertness: awake and alert Orientation: patient not oriented to time, noted it was Sunday, but noted correct date and year Attention: patient declined MOYB then did them very slowly with two errors Calculations: I'm not going to answer that Memory: patient declined to register name and address and did not vs would not recall it later whenprompted Abstraction: I'm not going to participate in this anymore Executive function: no I'm not going to do that when asked to perform Luria Mental Status: Appearance: stated age Behavior: guarded and rapport: strained Speech: soft, slowed, and increased latency Language: intact Mood: guarded Affect: constricted and guarded with suspicious quality Thought Process: organized and concrete Thought Content: no suicidal ideation Hallucinations: absent Attention: distracted Concentration: impaired Orientation: date, person, place Memory: impaired Fund of Knowledge: impaired Insight: impaired Judgment: impaired LABS, MICROBIOLOGY and STUDIES reviewed in Epic. Temp: [97.8 ??F (36.6 ??C)-98.9 ??F (37.2 ??C)] 98.3 ??F (36.8 ??C) Heart Rate: [87-104] 94 Resp: [16-20] 18 BP: (112-136)/(73-92) 125/73 SpO2: [91 %-100 %] 98 % CBC: 04/23 0721 WBC>H/H<Plt 12.83; 12.83>12.4/37.7<285 BMP: NA: 139 CL: 103 BUN: 42 Glu: 171 K: 3.9 CO2: 23 Cr: 0.90 GFR: 94 Chem3: Ca:9.3 M.1 PO4:3.3 CRP: 7.5 LFT: AST: 17 ALT:<5 T-Bili: - D-Bili:0.1 ASSESSMENT & PLAN Carter Raymundo is a 69 y.o. male with PPHx schizoaffective disorder on Clozapine, hypertension, CKD, oropharyngeal dysphagia c/b frequent aspiration now s/p PEG, drug induced Parkinsonism, who presented from nursing facility with altered mental status with unresponsiveness and aphasia, now medically cleared. Psychiatry initially consulted for assistance with diagnostic clarification, with initial differential ddx of catatonia vs delirium/encephalopathy vs decompensated psychosis and we are nowfollowing for continued management. The patient's presentation today appeared to show some impairment in attention and concentration. He would not participate in memory or executive functioning and appeared to either be internally preoccupied or increasingly suspicious of this MD's questioning, resulting in abrupt termination of the interview. This may be consistent with his known schizoaffective disorder. His known variations in participation in interviews is noted. Current differential remains acute delirium superimposed on known schizoaffective disorder. Catatonia is now less likely, especially given limited effect of benzodiazepines on clinical course. Patient on section 12 due to inability to care for self and acute risk of psychiatric decompensation. DSM-5 DIAGNOSIS: Schizoaffective disorder Delirium, resolving SAFE-T Risk Factors: active psychosis Protective Factors: engaged in treatment Suicide Inquiry: none Risk: Low Interventions: As below RECOMMENDATIONS: #Disposition S12 Cannot leave AMA #Psychiatry Clozapine 25mg QAM, 125mg QHS Wellbutrin 100mg TID Continue Gabapentin, Trazodone Essential that patient has regular bowel movements while on Clozapine Psychiatry will continue to follow DISPOSITION: -- Anticipated discharge to: [facility], Psychiatry Extended Emergency Contact Information Primary Emergency Contact: Delvin Raymundo Mobile Relation: Brother Silver Solderer needed? No Alex Goetz MD PGY-4, Psychiatry [id number] (nights, weekends, holidays) * Kimani Rivas MD - 04/23/2025 11:22 AM EDT [facility] PSYCHIATRIC CONSULTATION FOLLOW-UP NOTE INTERVAL HPI: - Episode of AMS with staring, unresponsiveness yesterday afternoon. NCHCT negative for stroke, placed on EEG for dx clarification - NAEON. Patient took scheduled clozapine this morning - Nursing reports patient declining food, selective about medications Patient is awake, alert, and readily responsive on interview. Patient reports sleeping well overnight. He does not recall episode of AMS yesterday but when described states it has happened to him before. He denies history of seizure. He is not sure when he last spoke to his brother but is open to speaking with him again. He is concerned about deconditioning in the hospital and has appreciated physical therapy. He is open to going to rehab. He denies any side effect from medication including muscle rigidity. He reports limited appetite. Patient denies any recent bowel movements; denies any abdominal pain or discomfort. He reports cough but denies fever/chills/malaise. He denies AVH/SI/HI. Collateral: Attempted outpatient psychiatrist, Dr. Kayla Corral at [facility] ([phone]), left VM REVIEW OF SYSTEMS: Positive as documented above, otherwise negative EXAM: 04/23/2025 8:42 AM Vital Signs Temperature 97.9 ??F (36.6 ??C) Heart Rate 90 Respiration 18 SpO2 97 % Blood Pressure 112/75 Neurological: Motor: mild tremor appreciated in bilateral hands Station and gait: not assessed as patient lying in bed Cognitive: Wakefulness/alertness: awake and alert Orientation: grossly oriented to person/place/situation Attention: attentive to conversation Memory: grossly intact Language: Fluent in Thai, no paraphasic errors Mental Status: Appearance: appears stated age, fair grooming and hygiene, EEG leads placed on head Behavior: good eye contact, calm, cooperative Mood: good Affect: constricted, stable Speech: monotonous, low volume Thought process: linear, grossly organized Thought content and perceptions: denies AVH, denies SI/HI, no overt paranoia or delusions elicited Insight and judgment: fair/limited MEDICATIONS: Scheduled Meds:Scheduled Medications[1] Continuous Infusions:Infusions Meds[2] PRN Meds:.PRN Medications[3] DATA: Lab Results Component Value Date WBC 12.83 (H) 04/23/2025 WBC 12.83 (H) 04/23/2025 HGB 12.4 (L) 04/23/2025 HCT 37.7 (L) 04/23/2025 MCV 96 04/23/2025 PLT 285 04/23/2025 Lab Results Component Value Date GLUCOSE 171 (H) 04/23/2025 CALCIUM 9.3 04/23/2025 NA 139 04/23/2025 K 3.9 04/23/2025 CO2 23 04/23/2025 CL 103 04/23/2025 BUN 42 (H) 04/23/2025 CREATININE 0.90 04/23/2025 Lab Results Component Value Date ALT <5 04/22/2025 AST 17 04/22/2025 ALKPHOS 161 (H) 04/22/2025 BILITOT 0.3 04/22/2025 Lab Results Component Value Date CORONAVIRUS Negative 04/16/2025 Lab Results Component Value Date [id number] 04/14/2024 Lab Results Component Value Date FOLATE 11.0 04/14/2024 `Vitamin D 25-OH Level Date Value Ref Range Status 04/17/2025 38 30 - 60 ng/mL Final Lab Results Component Value Date TSH 1.50 04/15/2025 Lab Results Component Value Date COLORU Straw 04/16/2025 CLARITYU Clear 04/16/2025 LABPH 7.5 04/16/2025 PROTEINUR Negative 04/16/2025 GLUCOSEU Negative 04/16/2025 KETONESU Negative 04/16/2025 BLOODU Negative 04/16/2025 LEUKOCYTEUR Negative 04/16/2025 NITRITE Negative 04/16/2025 SEDIMENT NOT DONE 05/29/2013 WBCU <1 04/16/2025 RBCU 1 04/16/2025 HYALINECAST <=10 12/01/2018 BACTERIA Few (A) 04/15/2024 Lab Results Component Value Date AMPHETUR Presumptive Negative 04/16/2025 BARBITUR Presumptive Negative 04/16/2025 BENZOURQL Presumptive Negative 04/16/2025 THCUR Presumptive Negative 04/16/2025 COCAINEMETUR Presumptive Negative 04/16/2025 LABMETH Presumptive Negative 04/16/2025 LABOPIA Presumptive Negative 04/16/2025 OXYCODNEU Presumptive Negative 04/16/2025 Last EKG ECG 12 lead Collection Time: 04/22/25 11:27 AM Result Value Ref Range Ventricular Heart Rate 119 BPM Atrial Heart Rate 119 BPM LA Interval 144 ms QRSD Interval 96 ms QT Interval 362 ms QTC Interval 509 ms P Mathews 58 degrees R Mathews -36 degrees T Wave Mathews 72 degrees Narrative Sinus tachycardia Left axis deviation / Left anterior hemiblock/fascicular block Minimal voltage criteria for LVH, may be normal variant Nonspecific ST-T wave abnormalities QTc prolongation When compared with ECG of 15-Apr-2025 18:53, rate faster. Frontal plane QRS axis slightly more leftward. *Note: Due to a large number of results and/or encounters for the requested time period, some results have not been displayed. A complete set of results can be found in Results Review. ASSESSMENT: Carter Raymundo is a 69 year old man with schizoaffective disorder, hypertension, CKD, oropharyngeal dysphagia c/b frequent aspiration now s/p PEG, drug induced Parkinsonism, who presented from [facility] with altered mental status with unresponsiveness and aphasia, now medically cleared. Psychiatry initially consulted for assistance with diagnostic clarification, with initial differential ddx of catatonia vs delirium/encephalopathy vs decompensated psychosis. Patient presentation improved today in regards to mental status and cognition. He has been intermittently cooperative with care with reports of some paranoia regarding certain medications, staff. He is conversant and readily engageable on interview. Given ongoing work up of etiology behind recent episode of AMS, would continue on current decreased dose of clozapine. Clinical data regarding etiology of presentation remains suggestive of acute delirium superimposed on known underlying psychiatric illness. Catatonia is unlikely based on prior examination and limited effect of most recent administration of lorazepam. Would continue with toxic-metabolic work up to rule out organic illness contributing to presentation. Patient on section 12 given inability to carefor self with acute risk of decompensation. DSM-5 and RELATED DIAGNOSES: Schizoaffective Disorder Delirium RECOMMENDATIONS: - Patient remains on section 12, cannot leave AMA - Please f/u UA, EEG - F/u clozapine level (04/22) - C/w clozapine to 25mg qAM + 125mg qHS - C/w Wellbutrin 100mg TID - May c/w gabapentin, trazodone - Please continue to monitor and ensure normal bowel movements with appropriate bowel regimen - Psychiatry will continue to follow Kimani Rivas MD Psychiatry PGY2 Personal pager: [phone] For overnight emergencies may contact [phone] pager. [1] atorvaSTATin, 20 mg, G-tube, QHS buPROPion, 100 mg, G-tube, TID carbidopa-levodopa, 2 tablet, G-tube, TID cloZAPine, 125 mg, G-tube, QHS cloZAPine, 25 mg, Oral, Daily enoxaparin, 40 mg, Subcutaneous, Q24H CLAUDIA famotidine, 20 mg, G-tube, BID [Held by provider] gabapentin, 100 mg, G-tube, BID [Held by provider] gabapentin, 300 mg, G-tube, QHS multivitamin with minerals tablet, 1 tablet, Oral, Daily sodium chloride, 3 mL, Intravenous, Q12H CLAUDIA potassium chloride ER, 60 mEq, Oral, Once ramelteon, 8 mg, Oral, QHS sennosides, 17.6 mg, G-tube, BID tamsulosin, 0.4 mg, G-tube, QHS traZODone, 150 mg, G-tube, Nightly [2] [3] calcium carbonate hydrOXYzine HCL Insert and Maintain Peripheral IV AND sodium chloride AND sodium chloride QUEtiapine Cosigned by Kymberly Mata MD at 04/23/2025 12:56 PM EDT Associated attestation - Kymberly Mata MD - 04/23/2025 12:56 PM EDT I was present with the resident during the evans portions of the service. I discussed the case with the resident and agree with the findings and plan as documented in the resident's note with the following addendum: Pt is alert and interactive this morning, sitting up in bed. He recalls a positive session with PT yesterday. Believes he slept overnight. He denies paranoid thoughts. He states his thoughts are reality-based. He does not elaborate further. He denies complaints about his mood. On exam, he is cooperative with interview. Normal eye contact. +PMR. Speech is responsive, normal rate, soft volume. Mood is okay. Affect with restricted range. TP brief linear responses, associations intact. Thought content limited; guarded about disclosing. He is alert and oriented x3. MOYB intact. Limited recall of recent events, though recalls PT session yesterday. Insight/judgment limited/limited. Clinical impression c/w schizoaffective disorder, recent decompensation with worsening paranoia. Increased clozapine in this setting. Yesterday experienced recurrent episode of acute change in mentalstatus. Medical w/u thus far unremarkable and negative response to ativan trial. EEG is pending fordiagnostic clarification. He received a higher dose of clozapine overnight (175mg) the day prior that may have contributed to increased sedation. Would continue on current dose (25mg qAM + 125mg qHS)and we will continue to follow with you. * Nicole Ramirez - 04/23/2025 8:31 AM EDT NUTRITION FOLLOW UP NOTE SUBJECTIVE: Sitting in bed, not currently responding to questions. OBJECTIVE: Height: 71 in Admit weight: 97.3 kg (bed, 04/16) Current weight: 75.8 kg (bed, 04/17) Recent rehab weight: 70.9 kg (sitting scale; 04/13/25) - per [facility] Pertinent Meds: famotidine, lorazepam, multivitamin w/ minerals, senna. Others noted. Recent Labs 04/23/25 0721 NA 139 K 3.9 CL 103 CO2 23 BUN 42* CREATININE 0.90 GLUCOSE 171* CALCIUM 9.3 MG 2.1 PHOS 3.3 Corrected Calcium: 9.54 Calculated using: - Calcium: 9.3 (04/23/2025) - Albumin: 3.7 (04/22/2025) Recent Labs 04/22/25 1107 POCGLU 116* Recent Labs 04/22/25 1121 ALT <5 AST 17 ALKPHOS 161* BILITOT 0.3 Lab Results Component Value Date [id number] 38 04/17/2025 CRP 7.5 (H) 04/17/2025 Food Allergies: NKFA Diet Order: Pureed diet, thin liquids Tube Feed Order: TwoCal HN @ 50 mL/hr x20 hrs (run from 1pm to 9am) (provides: 2000 kcals, 84g protein, & 700 mL free water). +350 mL free water flushes q6h (+1400 mL). Total free water: 2100 mL total H2o/day. Access Type: PEG GI/Abdomen: Abdomen rounded, non-distended, non-tender, soft. LBM 04/15/25. Skin: contact dermatitis to sacrum per wound care eval (04/17/25), no pressure injuries noted. Drains: None. Extremities: No LE edema noted. Nutrition Focused Physical Exam: Deferred. ASSESSMENT: Estimated Nutrition Needs: Calories: 2052-6335 kcal (25-30 kcal/kg) Protein: 85-106 g (1.2-1.5 g/kg) Fluids: 6392-8042 mL (25-30 mL/kg) Estimated Needs Calculated Usin.9 kg (156 lb 4.9 oz) (weight at rehab) Specifics: 69M w/ PMHx significant for HTN, CKD, schizoaffective disorder, and drug-induced parkinsonism. Presented to [facility] on 04/15/25 w/ unresponsiveness, asphaia, & possible left facial droop. CT and MRIhead r/o stroke, & TME workup negative. Patient admitted to medicine for monitoring. Per psych presentation most consistent w/ delirium, no obvious organic cause of TME found. Triggered for somnolence/AMS on 04/22. Nutrition following for tube feed management. At SNF, patient takes pureed POs by mouth & tube feeds. In house, patient not eating due to dislike of pureed diet texture. Tube feeds continue at cyclic goal ordered to provide 100% of nutritional needs. Continue current cycle as ordered to provide all nutritional needs while patient not eating. No updated weights, obtain new zeroed bed-scale weight as able. Lytes currently WNL, will monitor. Nutrition to follow. Interventions / Recommendations: Continue pureed diet as ordered, encourage any POs as tolerated. Continue tube feeds as ordered: TwoCal HN @ 50 mL/hr x20 hrs (run from 1pm to 9am) (provides: 2000 kcals, 84g protein, & 700 mL free water). +350 mL free water flushes q6h (+1400 mL). Total free water: 2100 mL total H2o/day. Monitor lytes, address PRN. Micronutrients: Continue multivitamin w/ minerals. Defer vitamin D supplement. Monitor I's/O's, GI function, & BMs daily. Obtain new weight as able. NFPEx as appropriate. Nutrition to continue to follow, please message or page [phone] with any questions/concerns Signed by: Nicole Ramirez MS, RD, LDN 04/23/25 8:31 AM * Juliet Becerra MD - 04/23/2025 7:41 AM EDT Images from the original note were not included. [facility] Department of Medicine [facility] Medicine Progress Note Patient: Carter Raymundo Admission Date: 04/15/2025 Length of Stay: 7 PCP: Kilo Huynh Attending: Bonifacio Agudelo MD Chief Complaint: Altered Mental Status OVERNIGHT EVENTS NAEON Pt took his clozapine last night SUBJECTIVE Pt not responding to questions this morning. Was told by sitter that he was speaking 15 min prior to my entrance. Intermittently nods his head in response to my questions. OBJECTIVE DATA VITALS T 98.9 ??F (37.2 ??C) HR 87 BP 117/81 RR 20 SpO2 100 % O2 Device: None (Room air) 75.8 kg (167 lb 1.7 oz) Body mass index is 23.31 kg/m??. PHYSICAL EXAM GENERAL: NAD, lying in bed comfortably. HEENT: No scleral icterus, moist mucous membranes. CARDIAC: Regular rate and rhythm, no murmurs, rubs, or gallops; extremities warm, well perfused, nolower extremity edema. LUNG: Appears in no respiratory distress. No accessory muscle use. Lung cortez clear to auscultation bilaterally, with no crackles, wheezes, or rhonchi. ABD: Abdomen soft, nontender, nondistended without rebound tenderness or guarding. MSK: No focal joint swelling or deformities. NEURO: Alert, oriented. EOMI. Face symmetric, speech normal. Moving all extremities against gravity. SKIN: No significant rashes, sores or wounds noted on exposed skin. PSYCH: not engaging in conversation this morning LABS, MICROBIOLOGY and STUDIES reviewed in [facility]. ASSESSMENT & PLAN Carter Raymundo is a 69 y.o. male with a relevant past medical history of HTN, CKD, schizoaffectivedisorder, and drug-induced parkinsonism, who presents with unresponsiveness, asphaia, and possible left facial droop. CT and MRI head r/o stroke, and TME workup thus far negative. Transient hypoxia in ED without fever, leukocytosis, and any localizing signs and symptoms points toward potential aspiration pneumonitis. Patient admitted to medicine for monitoring. Per psych presentation most consistent with delirium, no obvious organic cause of TME found. ACTIVE ISSUES # Brief episode of unresponsiveness # Schizoaffective disorder Patient presented with acute onset of unresponsiveness and aphasia. Also concern for facial asymmetry, however, per chart review, this is chronic. Etiology of altered mental status unclear. Code stroke activated upon presentation, however, CT/CTA head and neck did not reveal any acute intracranial abnormalities. Initially given lorazepam for concern for catatonia. Patient became more responsive following this. Has not needed additional doses since then with no further signs of catatonia, so mayhave been an episode of transient catatonia. May have occurred in the setting of missed medication doses that morning. Per chart reivew and brother's report patient's dose of clozapine has also been c hanged recently. Work-up for toxic-metabolic encephalopathy has been negative. Pt had another episode of unresponsiveness on 04/22, see trigger note from that date. - Psych following, appreciate recs - C/h buproprion 100mg TID - C/h clozapine (doses recently changed, confirmed most recent dose with Gemma Cain): 125 mg atnight, 25 mg in the morning - C/h trazodone 150mg qHs; added 12.5mg BID PRN for anxiety and irritability - Ramelteon 8 mg at bedtime - Hydroxizine 75 mg prn, Seroquel 50 mg prn - d/c lorazapam (initially started due to c/f catatonia) - Meets section 12 criteria, cannot leave AMA - CBC with diff for tomorrow # Dysphagia with G tube reliance Patient with history of oropharyngeal dysphagia. Pulled out G tube 04/19 AM - G tube replaced by IR on 04/19 PM, ok to use # Transient hypoxia # C/f aspiration pneumonitis Patient with episode of hypoxia in ED, quickly resolved without intervention. Patient with history of oropharyngeal dysphagia with G tube in place. Confirmed with Gemma Cain RN that patient is currently on pureed diet with [employer] at their facility following. High risk for aspiration and given transient nature suspect this was the driving etiology of hypoxia. CXR with unclear opacification, then obtained lateral view which showed some streakiness c/f atelectasis vs infection. Given lack of fevers, cough, and leukocytosis, low clinical suspicion for pneumonia and will defer Abx for now. - Continue pureed diet - Deferring [employer] for now - Nutrition consulted, appreciate recs - Consider out pt sleep study - CXR with no infiltrates 04/22 CHRONIC / STABLE ISSUES # Drug-induced Parkinsonism - C/h sinemet # CAD # HTN - C/h statin [] TI: Consideration of ASA # CKD - Trending Cr, currently at baseline # BPH - C/h tamsulosin # GERD - C/h pepcid CORE MEASURES - FEN: IVF PRN, replenish electrolytes, Diet Modified Texture; Pureed; Thin Liquids; Deliver To Nursing, Finger Foods/No Utensils, No Sharps, Safety Tray - PAML complete - Functional Status: Independent without use of assistive devices for ambulation - DVT prophylaxis: SC low molecular weight heparin - Access: peripheral IV x1 - Code: Full Code - Contact: brother Lr, Patient Contacts Name Legal Rel Relationship Phone Active Delvin Raymundo Brother - Disposition: -- Anticipated discharge to: nursing home facility -- Anticipated discharge date: t+1 -- Anticipated discharge barriers: Completion of evaluation for altered mental status Extended Emergency Contact Information Primary Emergency Contact: Delvin Raymundo Mobile Relation: Brother Silver Solderer needed? No Juliet Becerra MD Dept of Medicine Cosigned by Bonifacio Agudelo MD at 04/23/2025 1:04 PM EDT Associated attestation - Bonifacio Agudelo MD - 04/23/2025 1:04 PM EDT I have seen and examined Mr. Raymundo, reviewed the findings and plan of care as documented by MD Rex and agree, except for any additional comments below. The patient was placed on EEG monitoring yesterday evening and given his clozapine. This morning onmy interview he is sitting up and awake and no longer encephalopathic. He denies a specific complaints today. He talks appropriately. He can tell me the place, date, and time. He has no other complaints. His exam is notable for being awake and alert with fluent speech and moving all extremities. The rest of his his exam is unchanged. Labs, images reviewed in detail He seems to have acute metabolic versus toxic encephalopathy superimposed on his decompensated schizoaffective disorder. He had an episode of unresponsiveness yesterday of unclear etiology. At this time there is no clear medical reason for this. We await EEG results to exclude underlying seizure. If this is negative, then his episodes are likely psychogenic in origin. Will continue clozapine split dosing. We will trend his CBC. Will continue tube feeds. Pending EEG we would medically clear him for transfer to inpatient psychiatry as soon as tomorrow. Bonifacio Agudelo MD Section of Hospital Medicine [facility] * Kymberly Mata MD - 04/22/2025 12:34 PM EDT [facility] PSYCHIATRIC CONSULTATION FOLLOW-UP NOTE CC: Altered mental status INTERVAL HPI: Pt took evening meds at 330am, including clozapine 175mg, Sinemet, bupropion 100mg, gabapentin 300mg. He engaged with PT to improve functioning in setting of deconditioning with good potential for improvement. Nursing notes that he has been oriented by unaware of situation and declined continuous O2 yesterday. SaO2 this morning is 97% on RA. He continues tube feeds and 1:[address] bed search in progress for inpatient level of care. Pt triggered this afternoon for altered mental status. He was not speaking and lying in bed with eyes closed. With eye opening, appeared to be staring with pinpoint pupils. +Drooling. On motor exam, he was not rigid or resisting movement. Labs revealed CK of 26, AP 161, WBC 10.35, BUN 35, Gluc 127.NCHCT neg. ECG with sinus tachycardia, rate 119, Qtc 509. Received lorazepam 1mg dose without improvement in mental status; he got sleepier after administration. On interview, Carter does initially respond and opens his eyes. He is coughing. Pupils are constricted and reactive. He is not tracking or following commands. No verbal output. His jaw is stiff and resistant to closure. No rigidity or posturing in extremities. No echopraxia. Grasp reflex equivocal on the left. Later on exam he is not opening eyes or responding to voice or sternal rub. REVIEW OF SYSTEMS: +Cough EXAM: Temp: [97.8 ??F (36.6 ??C)-99.1 ??F (37.3 ??C)] 98.6 ??F (37 ??C) Heart Rate: [91-120] 91 Resp: [18] 18 BP: (122-158)/(81-110) 142/92 SpO2: [95 %-100 %] 97 % Neurological: Motor: no abnormal movements appreciated, no gegenhalten, no perseveration, equivocal grasp reflex on left, no posturing Station and gait: deferred due to mental status Cognitive: Wakefulness/alertness: awake and alert Orientation: unable to elicit Attention: inattentive Memory: unable to elicit Language: non-verbal, not following commands Mental Status: Appearance: appears stated age, fair grooming and hygiene Behavior: eyes closed, does not resist eye opening, not responsive, not moving Mood: not stated Affect: calm Speech: no output Thought process: unable to elicit Thought content and perceptions: unable to elicit Insight and judgment: unable to elicit MEDICATIONS: Scheduled Meds:Scheduled Medications[1] Continuous Infusions:Infusions Meds[2] PRN Meds:.PRN Medications[3] DATA: Lab Results Component Value Date WBC 10.35 (H) 04/22/2025 HGB 14.0 04/22/2025 HCT 41.4 04/22/2025 MCV 92 04/22/2025 PLT 290 04/22/2025 Lab Results Component Value Date GLUCOSE 127 (H) 04/22/2025 CALCIUM 9.6 04/22/2025 NA 144 04/22/2025 K 4.4 04/22/2025 CO2 24 04/22/2025 CL 107 04/22/2025 BUN 35 (H) 04/22/2025 CREATININE 1.00 04/22/2025 Lab Results Component Value Date ALT <5 04/22/2025 AST 17 04/22/2025 ALKPHOS 161 (H) 04/22/2025 BILITOT 0.3 04/22/2025 Lab Results Component Value Date CKTOTAL 26 (L) 04/22/2025 VBG 7.48* / 35 / 203* / 26 / 97% / 3.1 Carboxyhemoglobin, VBG 1.9* NCHCT no acute intracranial abnormality ECG Sinus tachycardia, rate 110, Qtc 509 ASSESSMENT: Carter Raymundo is a 69 year old man with schizoaffective disorder, hypertension, CKD, oropharyngeal dysphagia c/b frequent aspiration now s/p PEG, drug induced Parkinsonism, who presented from [facility] with altered mental status with unresponsiveness and aphasia, now medically cleared. Psychiatry initially consulted for assistance with diagnostic clarification, with initial differential ddx of catatonia vs delirium/encephalopathy vs decompensated psychosis. Outpatient collateral (brother and psychiatrist) note that pt was previously stable on clozapine 175mg for many years, reduced to 125mg daily about two months ago for worsening fatigue concordant with surgical procedure for spinal stenosis. He has been recovering in a rehab setting. About one week prior to presentation, family noted worsening paranoia and the dose was increased back to 150mg for 1-2d, with plan to titrate up to 175mg total daily dose. On the morning of presentation to the ED, pt had declined medications. He was found to be unresponsive and aphasic with possible left facial droop. NCHCT was negative for stroke. Due to concern for catatonia vs toxic metabolic encephalopathy, received lorazepam 1mg with some improvement in alertness on exam. Found to be alert and conversant the following morning without catatonic signs. Lorazepamwas discontinued. He was admitted to medicine with transient hypoxia and altered mental status concerning for aspiration pneumonitis. Pt noted to be alert and conversant on exam yesterday. Clozapine titrated to 175mg qHS for worsening paranoia interfering with care. He eventually accepted the full dose overnight around 3am togetherwith his other evening medications. Continued on section 12 with plan for inpatient level of care for psychosis impacting ability to care for himself. A trigger was called on the floor today when pt again became unresponsive. On exam, he is non-verbal and not following commands. Accepted eye opening and noted to be staring and drooling. Pupils pinpoint, reactive to light. He is not tracking. Resistant to jaw closure. No rigidity in upper extremities. No gegenhalten, posturing, perseveration or echopraxia. Later he is non-responsive to voice or verbal rub. Lorazepam 1mg trial with no improvement in mental status. Clinical impression most consistent with acute delirium, currently unspecified. Increased dose of clozapine may be contributing to depressed level of arousal. NCHCT unremarkable. EEG is pending to for dx clarification and to r/o seizure on clozapine and bupropion. Less likely catatonia given exam and lack of response to lorazepam challenge. Would continue medical w/u as you are doing for acute change in mental status. Recommend reducing dose of clozapine to 25mg qAM + 125mg qHS if alert and holding the dose entirely if mental status remains altered. We will continue to follow with you. DSM-5 DIAGNOSIS: Delirium Schizoaffective Disorder RECOMMENDATIONS: -check CXR -check UA -EEG pending; appreciate neuro input -clozapine level pending -decrease clozapine to 25mg qAM + 125mg qHS; hold tonight if remains altered -hold trazodone and gabapentin -we will continue to follow with you [1] atorvaSTATin, 20 mg, G-tube, QHS buPROPion, 100 mg, G-tube, TID carbidopa-levodopa, 2 tablet, G-tube, TID cloZAPine, 175 mg, G-tube, QHS enoxaparin, 40 mg, Subcutaneous, Q24H CLAUDIA famotidine, 20 mg, G-tube, BID gabapentin, 100 mg, G-tube, BID gabapentin, 300 mg, G-tube, QHS multivitamin with minerals tablet, 1 tablet, Oral, Daily sodium chloride, 3 mL, Intravenous, Q12H CLAUDIA potassium chloride ER, 60 mEq, Oral, Once ramelteon, 8 mg, Oral, QHS sennosides, 17.6 mg, G-tube, BID tamsulosin, 0.4 mg, G-tube, QHS traZODone, 150 mg, G-tube, Nightly [2] [3] calcium carbonate hydrOXYzine HCL Insert and Maintain Peripheral IV AND sodium chloride AND sodium chloride QUEtiapine * Juliet Becerra MD - 04/22/2025 8:23 AM EDT Images from the original note were not included. [facility] Department of Medicine [facility] Medicine Progress Note Patient: Carter Raymundo Admission Date: 04/15/2025 Length of Stay: 6 PCP: Kilo Huynh Attending: Bonifacio Agudelo MD Chief Complaint: Altered Mental Status OVERNIGHT EVENTS NAEON Pt took his clozapine last night SUBJECTIVE Pt not responding to questions this morning. Was told by sitter that he was speaking 15 min prior to my entrance. OBJECTIVE DATA VITALS T 97.8 ??F (36.6 ??C) HR (!) 92 BP 122/81 RR 18 SpO2 97 % O2 Device: None (Room air) 75.8 kg (167 lb 1.7 oz) Body mass index is 23.31 kg/m??. PHYSICAL EXAM GENERAL: NAD, lying in bed comfortably. HEENT: No scleral icterus, moist mucous membranes. CARDIAC: Regular rate and rhythm, no murmurs, rubs, or gallops; extremities warm, well perfused, nolower extremity edema. LUNG: Appears in no respiratory distress. No accessory muscle use. Lung cortez clear to auscultation bilaterally, with no crackles, wheezes, or rhonchi. ABD: Abdomen soft, nontender, nondistended without rebound tenderness or guarding. MSK: No focal joint swelling or deformities. NEURO: Alert, oriented. EOMI. Face symmetric, speech normal. Moving all extremities against gravity. SKIN: No significant rashes, sores or wounds noted on exposed skin. PSYCH: not engaging in conversation this morning LABS, MICROBIOLOGY and STUDIES reviewed in [employer]. ASSESSMENT & PLAN Carter Raymundo is a 69 y.o. male with a relevant past medical history of HTN, CKD, schizoaffectivedisorder, and drug-induced parkinsonism, who presents with unresponsiveness, asphaia, and possible left facial droop. CT and MRI head r/o stroke, and TME workup thus far negative. Transient hypoxia in ED without fever, leukocytosis, and any localizing signs and symptoms points toward potential aspiration pneumonitis. Patient admitted to medicine for monitoring. Per psych presentation most consistent with delirium, no obvious organic cause of TME found. ACTIVE ISSUES # Brief episode of unresponsiveness # Schizoaffective disorder Patient presented with acute onset of unresponsiveness and aphasia. Also concern for facial asymmetry, however, per chart review, this is chronic. Etiology of altered mental status unclear. Code stroke activated upon presentation, however, CT/CTA head and neck did not reveal any acute intracranial abnormalities. Initially given lorazepam for concern for catatonia. Patient became more responsive following this. Has not needed additional doses since then with no further signs of catatonia, so mayhave been an episode of transient catatonia. May have occurred in the setting of missed medication doses that morning. Per chart reivew and brother's report patient's dose of clozapine has also been c hanged recently. Work-up for toxic-metabolic encephalopathy has been negative. - Psych following, appreciate recs - C/h buproprion 100mg TID - C/h clozapine (doses recently changed, confirmed most recent dose with Gemma Cain): 175 mg qHS - C/h trazodone 150mg qHs; added 12.5mg BID PRN for anxiety and irritability - Ramelteon 8 mg at bedtime - Hydroxizine 75 mg prn, Seroquel 50 mg prn - d/c lorazapam (initially started due to c/f catatonia) - Meets section 12 criteria, cannot leave AMA - CBC with diff for tomorrow # Dysphagia with G tube reliance Patient with history of oropharyngeal dysphagia. Pulled out G tube 04/19 AM - G tube replaced by IR on 04/19 PM, ok to use # Transient hypoxia # C/f aspiration pneumonitis Patient with episode of hypoxia in ED, quickly resolved without intervention. Patient with history of oropharyngeal dysphagia with G tube in place. Confirmed with Gemma Cain RN that patient is currently on pureed diet with [employer]INE[employer] at their facility following. High risk for aspiration and given transient nature suspect this was the driving etiology of hypoxia. CXR with unclear opacification, then obtained lateral view which showed some streakiness c/f atelectasis vs infection. Given lack of fevers, cough, and leukocytosis, low clinical suspicion for pneumonia and will defer Abx for now. - Continue pureed diet - Deferring [employer] DES[employer] for now - Nutrition consulted, appreciate recs - Consider out pt sleep study CHRONIC / STABLE ISSUES # Drug-induced Parkinsonism - C/h sinemet # CAD # HTN - C/h statin [] TI: Consideration of ASA # CKD - Trending Cr, currently at baseline # BPH - C/h tamsulosin # GERD - C/h pepcid CORE MEASURES - FEN: IVF PRN, replenish electrolytes, Diet Modified Texture; Pureed; Thin Liquids; Deliver To Nursing, Finger Foods/No Utensils, No Sharps, Safety Tray - PAML complete - Functional Status: Independent without use of assistive devices for ambulation - DVT prophylaxis: SC low molecular weight heparin - Access: peripheral IV x1 - Code: Full Code - Contact: brother Lr, Patient Contacts Name Legal Rel Relationship Phone Active Delvin Raymundo Brother - Disposition: -- Anticipated discharge to: nursing home facility -- Anticipated discharge date: t+1 -- Anticipated discharge barriers: Completion of evaluation for altered mental status Extended Emergency Contact Information Primary Emergency Contact: Delvin Raymundo Mobile Relation: Brother Silver Solderer needed? No Juliet Becerra MD Dept of Medicine Cosigned by Bonifacio Agudelo MD at 04/22/2025 3:00 PM EDT Associated attestation - Bonifacio Agudelo MD - 04/22/2025 3:00 PM EDT I have seen and examined Mr. Raymundo, reviewed the findings and plan of care as documented by MD Rex and agree, except for any additional comments below. I have seen and examined Mr. Raymundo, reviewed the findings and plan of care as documented by MD Rex and agree, except for any additional comments below. There are no acute overnight events noted. He received his clozapine at 3 AM. There this morning hewas found to be unresponsive and in a comatose state. A trigger event was called and he was evaluated at the bedside. He is unable to provide history. His eyes are open and fixed upward. He does haveperiodic tongue movements and occasionally looks around. He seems to be comfortable. His objective physical exam is otherwise unremarkable. Labs are reviewed in detail. Please see trigger note for specific details around his trigger. He has decompensated schizoaffective order now with acute metabolic versus toxic encephalopathy of unknown etiology. Differential includes medication toxicity or side effect, dystonic reaction, seizure, or other SECURITY INFRASTRUCTURE ENGINEER injury. Initial blood work is reassuring. We will perform noncontrast CT head, and EEG. Will trial IV Ativan and possibly antihistamine. We will reengage psychiatry. We will place himon telemetry and continuous O2 monitoring. He is at high risk for worsening of his mental status and neurologic function and requires ongoing medical evaluation at this time. Ultimately once he is stabilized psychiatric hospitalization will be considered. I spent 60 minutes in this clinical encounter reviewing the medical record, seeing and examining the patient, placing orders, writing notes, performing signout, and communicating with the applicable medical and nursing teams. Bonifacio Agudelo MD Section of Hospital Medicine [facility] * Demetra Hawkins, PT - 04/21/2025 4:58 PM EDT PHYSICAL THERAPY INITIAL EVALUATION Rehabilitation Services - Inpatient Physical Therapy Level of Care: Floor Interdisciplinary Recommendations PT Discharge rec: (pending cody recommendations) Activity and Mobility Recommendations: [x]Patient is at high risk for deconditioning. Please maximize independence in ADLs and encourage frequent mobility including: Assist of x1-2 for out of bed to chair with RW 3x/day []Patient is at risk for pressure injury. Please limit sitting time to one hour on standard air cushion given patient???s inability to effectively reposition in chair. [x]Patient is at risk for falls. Please use chair alarm when out of bed. [x]Patient is at risk for delirium. Please consider implementing strategies to reduce risk including: OOB to chair 3 day for all meals Familiar pictures and items within view News or nonverbal music on during daytime Lights on during day with shades UP Frequent Reorientation to clock, calendar, and window Encourage participation with ADLs Encourage family presence at bedside *For questions please check the patient???s care team for the most updated PT contact information [x]HPI/Subjective Complaint, Past Medical/Surgical History, Medications, Radiology, and Labs reviewed Social History/Prior Function Home Environment Type of Home: Assisted living Home Layout: One level Home Equipment: Rollator Fall History Number of Falls (last 12 months): ( numerous ) Cause of Fall(s): Lower extremity, pain, weakness, or legs giving out Fall History Reported By: Self Prior Function Vocational Status: Retired 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 (Re: stand) Patient-Stated Goal: none stated. Agreeable to PT session Objective: Cognition: Level of Consciousness: Alert Orientation Level: Oriented X4 Oriented to: Name, Date of , Date, Year, Month, Place, Name of hospital Following Directions: Follows all directions without difficulty Success rate following directions: 100% of the time Patient Behaviors/Mood: Appropriate, Calm, Cooperative Memory: Decreased recall of recent events Attention to Tasks: Attends to task, Attends to conversation Tests of Attention: Intact, Days of week backwards Safety Awareness: Decreased awareness of need for assistance, Decreased awareness of safety precautions Insight: Impaired Problem Solving: Assistance required to identify errors made, Assistance required to generate solutions Hemodynamic Response/Aerobic Capacity HR BP RR O2 RPE/FLYNN REST Supine Sit 150/80 Stand ACTIVITY (position) RECOVERY (Seated p stand) 158/88 *patient denies lightheaded/dizziness throughout session Relevant cardiac medications reviewed per EMR [x]Full systems review completed and found to be within normal limits with the following exceptions: Respiratory: Cough: no spontaneous cough observed Integumentary: PIV, GI tube Peripheral Edema: None observed Vascular: Extremities warm and well perfused appearing Sensory Integrity: Patient denied parasthesias. Grossly Intact to light touch throughout Posture: Increased thoracic kyphosis Range Of Motion: Grossly WFL Pt is able to reach back of head: Y Muscle Performance: Grossly WFL >3/5 Motor Function: Moves all extremities in isolation Pain: Patient reports ache in lower back which improves with mobility Intervention: repositioning Functional Mobility Bed Mobility: Rolling: Activity does not occur Supine to Sit: Minimal assistance Adaptive Equipment: HOB elevated, Side rails Sit to Supine: Modified independence Adaptive Equipment: HOB elevated Transfers: Sit to Stand: Minimal assistance, 2 person Stand to Sit: Minimal assistance, 2 person Transfer aid: Other (comment) (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) Gait Belt Used For Transfers: Yes Gait: Ambulation Assistance: Activity does not occur Balance: Sitting - Static: Supervision Sitting - Dynamic: Contact guard Standing - Static: Minimal assistance, 2 person, With bilateral upper extremity support (patient tolerating standing ~ 1 minute to allow for hygiene) Standing - Dynamic: Activity does not occur Balance Interventions: Sitting reaching activities, Standing reaching activities, Weight shifting Limiting Symptoms: Fatigue Intervention: Therapeutic activities Functional mobility training Balance training Endurance training Energy conservation Patient/Caregiver Education RE: [x]Role of PT [x]PT plan of care [x]Fall risk reduction [x]Discharge recommendations [x]Mobility Recommendations []Other: []Silver Solderer utilized for session Team Communication: Communicated with [x]RN [x]MD []OT [x]CM RE: Patient status [x]Patient discussed at interdisciplinary team rounds. Pt left supine with all needs in reach, bed alarm for safety. 1:1 sitter Assessment Impairments of Body Functions and Structures, Activity Limitations and Participation Restrictions: Decreased range of motion, Decreased strength/Muscular endurance, Altered balance, Decreased ADL status, Pain, Decreased aerobic capacity Bed mobility, Transfers, Ambulation, Activities Of Daily Living, Deconditioned Clinical Impression/Prognosis: Carter Raymundo is a 69 y.o. male with a history of HTN, CKD, schizoaffective disorder, and drug-induced parkinsonism who presents to physical therapy during hospitalization for unresponsiveness, asphaia, and possible left facial droop, workup negative, however found to have aspiration pneumonitis.Pt is functioning well below baseline limited by impairments in body structure and function as listed above. Pt???s primary impairment/activity limitation is functional mobility, tolerance to activity and impaired dynamic balance which is likely due to deconditioning iso prolonged hospitalization. Pt also presents with activity limitations in mobility and self-care contributing to difficulty in fulfilling societal role of independent community dweller. Patient currently awaiting recommendations for psych regarding discharge planning. Acute PT will continue to follow and progress per POC. Patient has good potential to return to [facility] based on positive prognostic indicators including Age,Baseline level of function, Motivated. Progress may be slowed by potentially limiting prognostic indicators including Multiple co-morbidities, Impaired cognition Goals: Time Frame: 1 week - patient will be independent with bed mobility - patient will be independent with sit to stand with LRAD - patient will ambulate >100' with LRAD; IND - patient will verbalize fall and safety precautions Plan: Treatment/Interventions: Balance training, Bed mobility, Gait training/stairs, Therapeutic Activities/Functional Training, Therapeutic Exercise, Transfer training. Anticipated In Hospital Frequency : 1-5x/wk. Patient agrees with the above goals and is willing to participate in the rehabilitation program: Yes Time: [id number] Physical Therapist Name: DEMETRA HAWKINS PT Physical Therapist Pager: [phone] License #: [id number] * Kimani Rivas MD - 04/21/2025 11:14 AM EDT [facility] PSYCHIATRIC CONSULTATION FOLLOW-UP NOTE INTERVAL HPI: NAEON. Patient took scheduled clozapine 175mg overnight. Patient reports sleeping well overnight and feeling well rested. He reports his mood as reasonablyup . He feels safe in the hospital and feels he is being treated well. He states that his initial reason for being in the hospital is pneumonia but he does not believe he has it currently. He reports he is just waiting now for discharge but does not mind, has apprehension regarding rehab. He denies any side effect from medication including muscle rigidity. He is not sure when his last bowel movement was; he endorses good appetite, denies any abdominal pain or discomfort. He denies AVH/SI/HI. Patient denies any somatic symptoms. Collateral: Attempted outpatient psychiatrist, Dr. Kayla Corral at [facility] ([phone]), left REVIEW OF SYSTEMS: Positive as documented above, otherwise negative EXAM: 04/21/2025 12:42 AM Vital Signs Pain Location Back Neurological: Motor: mild tremor appreciated in bilateral hands L>R Station and gait: not assessed as patient lying in bed Cognitive: Wakefulness/alertness: awake and alert Orientation: grossly oriented to person/place/situation Attention: attentive to conversation Memory: grossly intact Language: Fluent in Thai, no paraphasic errors Mental Status: Appearance: appears stated age, fair grooming and hygiene Behavior: good eye contact, calm, cooperative Mood: reasonably up Affect: constricted, not irritable Speech: monotonous, low volume Thought process: linear, grossly organized Thought content and perceptions: denies AVH, denies SI/HI, no paranoia or delusions elicited Insight and judgment: fair/fair MEDICATIONS: Scheduled Meds:Scheduled Medications[1] Continuous Infusions:Infusions Meds[2] PRN Meds:.PRN Medications[3] DATA: Lab Results Component Value Date WBC 9.24 04/20/2025 HGB 12.4 (L) 04/20/2025 HCT 36.6 (L) 04/20/2025 MCV 92 04/20/2025 PLT 267 04/20/2025 Lab Results Component Value Date GLUCOSE 134 (H) 04/20/2025 CALCIUM 9.1 04/20/2025 NA 141 04/20/2025 K 3.7 04/20/2025 CO2 24 04/20/2025 CL 107 04/20/2025 BUN 31 (H) 04/20/2025 CREATININE 1.00 04/20/2025 Lab Results Component Value Date ALT <5 04/15/2025 AST 19 04/15/2025 ALKPHOS 182 (H) 04/15/2025 BILITOT 0.4 04/15/2025 Lab Results Component Value Date CORONAVIRUS Negative 04/16/2025 Lab Results Component Value Date [id number] 04/14/2024 Lab Results Component Value Date FOLATE 11.0 04/14/2024 `Vitamin D 25-OH Level Date Value Ref Range Status 04/17/2025 38 30 - 60 ng/mL Final Lab Results Component Value Date TSH 1.50 04/15/2025 Lab Results Component Value Date COLORU Straw 04/16/2025 CLARITYU Clear 04/16/2025 LABPH 7.5 04/16/2025 PROTEINUR Negative 04/16/2025 GLUCOSEU Negative 04/16/2025 KETONESU Negative 04/16/2025 BLOODU Negative 04/16/2025 LEUKOCYTEUR Negative 04/16/2025 NITRITE Negative 04/16/2025 SEDIMENT NOT DONE 05/29/2013 WBCU <1 04/16/2025 RBCU 1 04/16/2025 HYALINECAST <=10 12/01/2018 BACTERIA Few (A) 04/15/2024 Lab Results Component Value Date AMPHETUR Presumptive Negative 04/16/2025 BARBITUR Presumptive Negative 04/16/2025 BENZOURQL Presumptive Negative 04/16/2025 THCUR Presumptive Negative 04/16/2025 COCAINEMETUR Presumptive Negative 04/16/2025 LABMETH Presumptive Negative 04/16/2025 LABOPIA Presumptive Negative 04/16/2025 OXYCODNEU Presumptive Negative 04/16/2025 Last EKG ECG 12 lead Collection Time: 04/15/25 6:53 PM Result Value Ref Range Ventricular Heart Rate 98 BPM Atrial Heart Rate 98 BPM LA Interval 156 ms QRSD Interval 108 ms QT Interval 392 ms QTC Interval 500 ms P Mathews 63 degrees R Mathews -23 degrees T Wave Mathews 65 degrees Narrative Normal sinus rhythm Minimal voltage criteria for LVH, may be normal variant ( Donny product ) Prolonged QT interval Abnormal ECG When compared with ECG of 14-Apr-2024 19:05, No significant change was found *Note: Due to a large number of results and/or encounters for the requested time period, some results have not been displayed. A complete set of results can be found in Results Review. ASSESSMENT: Carter Raymundo is a 69 year old man with schizoaffective disorder, hypertension, CKD, oropharyngeal dysphagia c/b frequent aspiration now s/p PEG, drug induced Parkinsonism, who presented from [facility] with altered mental status with unresponsiveness and aphasia, now medically cleared. Psychiatry initially consulted for assistance with diagnostic clarification, with initial differential ddx of catatonia vs delirium/encephalopathy vs decompensated psychosis. Patient presentation notable for improvement in reported mood and no demonstrated paranoia today. He is cooperative with care with stable cognition. He has demonstrated recent adherence to current medication regimen. Clinical data regarding etiology of presentation is suggestive of decompensated psychosis in setting of recent clozapine decrease, with possible superimposed delirium. Patient to remain on section 12 for now given inability to care for self and risk of decompensation, but will continue to monitor and consider de-escalation if presentation is stable. DSM-5 DIAGNOSIS: Schizoaffective Disorder RECOMMENDATIONS: - Patient remains on section 12, cannot leave AMA - Continue 1:1 sitter - C/w Clozapine 175mg QHS - C/w Wellbutrin 100mg TID, trazodone 150mg QHS - Please continue to monitor and ensure normal bowel movements with appropriate bowel regimen - Psychiatry will continue to follow Kimani Rivas MD Psychiatry PGY2 Personal pager: [phone] For overnight emergencies may contact [phone] pager. [1] atorvaSTATin, 20 mg, G-tube, QHS buPROPion, 100 mg, G-tube, TID carbidopa-levodopa, 2 tablet, G-tube, TID cloZAPine, 175 mg, G-tube, QHS enoxaparin, 40 mg, Subcutaneous, Q24H CLAUDIA famotidine, 20 mg, G-tube, BID gabapentin, 100 mg, G-tube, BID gabapentin, 300 mg, G-tube, QHS multivitamin with minerals tablet, 1 tablet, Oral, Daily sodium chloride, 3 mL, Intravenous, Q12H CLAUDIA potassium chloride ER, 60 mEq, Oral, Once ramelteon, 8 mg, Oral, QHS sennosides, 17.6 mg, G-tube, BID tamsulosin, 0.4 mg, G-tube, QHS traZODone, 150 mg, G-tube, Nightly [2] [3] calcium carbonate hydrOXYzine HCL Insert and Maintain Peripheral IV AND sodium chloride AND sodium chloride QUEtiapine Cosigned by Brando Burris MD at 04/22/2025 10:07 AM EDT Associated attestation - Brando Burris MD - 04/22/2025 10:07 AM EDT Total time spent was 35 minutes including interview, chart review, care coordination. I performed ahistory and exam of the patient and discussed management of the patient with the resident. I reviewed the resident's note and agree with the documented findings and plan of care with the following addendum: Carter Raymundo is a 69 year old man with schizoaffective disorder, hypertension, CKD, oropharyngeal dysphagia c/b frequent aspiration now s/p PEG, drug induced Parkinsonism, who presented from [facility] with altered mental status with unresponsiveness and aphasia, now medically cleared. On evaluation, patient is cooperative with constricted affect, mild paranoia, does not seem internally pre occupied. He does not appear delirious or catatonic, and presentation is consistent with decompensated psychosis in setting of recent Clozapine decrease. Collateral obtained from patient's brother. He was updated on patient's clinical progress. He says that patient continues to be resistant to phone calls from him and is not as engaged with him as he usually is, which points towards ongoing paranoia. He says at baseline, patient has a great relationship with family and friends and is always agreeable to his medications. Brando Burris MD * Juliet Becerra MD - 04/21/2025 8:31 AM EDT Images from the original note were not included. [facility] Department of Medicine [facility] Medicine Progress Note Patient: Carter Raymundo Admission Date: 04/15/2025 Length of Stay: 5 PCP: Kilo Huynh Attending: Bonifacio Agudelo MD Chief Complaint: Altered Mental Status OVERNIGHT EVENTS NAEON Pt took his clozapine last night PT consult placed by nurse, patient has reportedly not left room in last couple days SUBJECTIVE Pt feels well this morning. States that he is tired because he is disturbed constantly. He is willing to take his medications tonight. OBJECTIVE DATA VITALS T 98 ??F (36.7 ??C) HR (!) 101 BP 119/82 RR 20 SpO2 94 % O2 Device: None (Room air) 75.8 kg (167 lb 1.7 oz) Body mass index is 23.31 kg/m??. PHYSICAL EXAM GENERAL: NAD, lying in bed comfortably. HEENT: No scleral icterus, moist mucous membranes. CARDIAC: Regular rate and rhythm, no murmurs, rubs, or gallops; extremities warm, well perfused, nolower extremity edema. LUNG: Appears in no respiratory distress. No accessory muscle use. Lung cortez clear to auscultation bilaterally, with no crackles, wheezes, or rhonchi. ABD: Abdomen soft, nontender, nondistended without rebound tenderness or guarding. MSK: No focal joint swelling or deformities. NEURO: Alert, oriented. EOMI. Face symmetric, speech normal. Moving all extremities against gravity. SKIN: No significant rashes, sores or wounds noted on exposed skin. PSYCH: pleasant this morning, agitated at times with nursing LABS, MICROBIOLOGY and STUDIES reviewed in [facility]. ASSESSMENT & PLAN Carter Raymundo is a 69 y.o. male with a relevant past medical history of HTN, CKD, schizoaffectivedisorder, and drug-induced parkinsonism, who presents with unresponsiveness, asphaia, and possible left facial droop. CT and MRI head r/o stroke, and TME workup thus far negative. Transient hypoxia in ED without fever, leukocytosis, and any localizing signs and symptoms points toward potential aspiration pneumonitis. Patient admitted to medicine for monitoring. Per psych presentation most consistent with delirium, no obvious organic cause of TME found. ACTIVE ISSUES # Brief episode of unresponsiveness # Schizoaffective disorder Patient presented with acute onset of unresponsiveness and aphasia. Also concern for facial asymmetry, however, per chart review, this is chronic. Etiology of altered mental status unclear. Code stroke activated upon presentation, however, CT/CTA head and neck did not reveal any acute intracranial abnormalities. Initially given lorazepam for concern for catatonia. Patient became more responsive following this. Has not needed additional doses since then with no further signs of catatonia, so mayhave been an episode of transient catatonia. May have occurred in the setting of missed medication doses that morning. Per chart reivew and brother's report patient's dose of clozapine has also been c hanged recently. Work-up for toxic-metabolic encephalopathy has been negative. - Psych following, appreciate recs - C/h buproprion 100mg TID - C/h clozapine (doses recently changed, confirmed most recent dose with Gemma Cain): 175 mg qHS - C/h trazodone 150mg qHs; added 12.5mg BID PRN for anxiety and irritability - Ramelteon 8 mg at bedtime - Hydroxizine 75 mg prn, Seroquel 50 mg prn - d/c lorazapam (initially started due to c/f catatonia) - Meets section 12 criteria, cannot leave AMA - CBC with diff for tomorrow # Dysphagia with G tube reliance Patient with history of oropharyngeal dysphagia. Pulled out G tube 04/19 AM - G tube replaced by IR on 04/19 PM, ok to use # Transient hypoxia # C/f aspiration pneumonitis Patient with episode of hypoxia in ED, quickly resolved without intervention. Patient with history of oropharyngeal dysphagia with G tube in place. Confirmed with Gemma Cain RN that patient is currently on pureed diet with SOLAR DESIGN ENGINEER at their facility following. High risk for aspiration and given transient nature suspect this was the driving etiology of hypoxia. CXR with unclear opacification, then obtained lateral view which showed some streakiness c/f atelectasis vs infection. Given lack of fevers, cough, and leukocytosis, low clinical suspicion for pneumonia and will defer Abx for now. - Continue pureed diet - Deferring SOLAR DESIGN ENGINEER for now - Nutrition consulted, appreciate recs - Consider out pt sleep study CHRONIC / STABLE ISSUES # Drug-induced Parkinsonism - C/h sinemet # CAD # HTN - C/h statin [] TI: Consideration of ASA # CKD - Trending Cr, currently at baseline # BPH - C/h tamsulosin # GERD - C/h pepcid CORE MEASURES - FEN: IVF PRN, replenish electrolytes, Diet Modified Texture; Pureed; Thin Liquids; Deliver To Nursing, Finger Foods/No Utensils, No Sharps, Safety Tray - PAML complete - Functional Status: Independent without use of assistive devices for ambulation - DVT prophylaxis: SC low molecular weight heparin - Access: peripheral IV x1 - Code: Full Code - Contact: brother Lr, Patient Contacts Name Legal Rel Relationship Phone Active Delvin Raymundo Brothmarisa - Disposition: -- Anticipated discharge to: nursing home facility -- Anticipated discharge date: t+1 -- Anticipated discharge barriers: Completion of evaluation for altered mental status Extended Emergency Contact Information Primary Emergency Contact: Delvin Raymundo Mobile Relation: Brother Silver Solderer needed? No Juliet Becerra MD Dept of Medicine Cosigned by Bonifacio Agudelo MD at 04/21/2025 1:23 PM EDT Associated attestation - Bonifacio Agudelo MD - 04/21/2025 1:23 PM EDT I have seen and examined Mr. Raymundo, reviewed the findings and plan of care as documented by MD Rex and agree, except for any additional comments below. Overnight events reviewed. Agree with subjective assessment. He denies any new complaints to me. His exam is unchanged He continues to have decompensated schizoaffective disorder and has been placed on a section 12. Continues clozapine and adjusting dose based on psychiatry recommendations. His G-tube is functioning appropriately. He has no ongoing respiratory concerns. Will look towards inpatient psychiatry placement unless he stabilizes before that. Is medically stable for transfer when bed becomes available. Bonifacio Agudelo MD Section of Hospital Medicine [facility] * Angel Luis Frausto RN - 04/20/2025 1:08 PM EDT VSS. R/A. A/Ox3. Intermittently refusing care from nursing. As of now pt is refusing O2 monitoring, aware. Will try again to place on. * Brando Burris MD - 04/20/2025 12:10 PM EDT [facility] PSYCHIATRIC CONSULTATION FOLLOW-UP NOTE INTERVAL HPI: No acute events overnight, patient did take Clozapine yesterday. On evaluation, patient is sitting up in bed, awake and alert. He says he feels ok . He notes he has been in the hospital for a few days now, does not recall what happened that brought him in. He says he did not notice any side effects from Clozapine and denies chest pain, denies constipation. He denies hallucinations, denies feeling depressed or anxious. He says he has not been eating well, attributes this to not liking the hospital food. He is unable to explain why he did not take his medications on Sunday or Sunday. Collateral obtained from patient's brother Delvin. He says that patient has been more paranoid recently in setting of Clozapine dose decrease. 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 He says that this paranoia extended to the patient's feelings about rehab and assisted living, which is uncharacteristic of him when he is doing well. He is agreeable to increasing Clozapine back to home dose. REVIEW OF SYSTEMS: Per HPI EXAM: 04/20/2025 7:46 AM Vital Signs Temperature 97.5 ??F (36.4 ??C) Heart Rate 87 Respiration 20 SpO2 95 % Blood Pressure 118/78 Neurological: Motor: no abnormal movements Station and gait: not assessed Cognitive: Wakefulness/alertness: intact Orientation: oriented to person, place, said date was April 18 . Attention: intact Calculations: intact Memory: intact Abstraction: intact Fund of knowledge: intact Language: intact Mental Status: Appearance: appears stated age, fair grooming Behavior: cooperative, maintains eye contact Mood: ok Affect: constricted Speech: monotonous, low volume Thought process: linear Thought content and perceptions: denies hallucinations, denies SI/HI, no overt paranoia on this exam Insight and judgment: fair MEDICATIONS: Scheduled Meds:Scheduled Medications[1] Continuous Infusions:Infusions Meds[2] PRN Meds:.PRN Medications[3] DATA: Lab Results Component Value Date WBC 9.24 04/20/2025 HGB 12.4 (L) 04/20/2025 HCT 36.6 (L) 04/20/2025 MCV 92 04/20/2025 PLT 267 04/20/2025 Lab Results Component Value Date GLUCOSE 134 (H) 04/20/2025 CALCIUM 9.1 04/20/2025 NA 141 04/20/2025 K 3.7 04/20/2025 CO2 24 04/20/2025 CL 107 04/20/2025 BUN 31 (H) 04/20/2025 CREATININE 1.00 04/20/2025 Lab Results Component Value Date ALT <5 04/15/2025 AST 19 04/15/2025 ALKPHOS 182 (H) 04/15/2025 BILITOT 0.4 04/15/2025 Lab Results Component Value Date CORONAVIRUS Negative 04/16/2025 Lab Results Component Value Date [id number] 438 04/14/2024 Lab Results Component Value Date FOLATE 11.0 04/14/2024 `Vitamin D 25-OH Level Date Value Ref Range Status 04/17/2025 38 30 - 60 ng/mL Final Lab Results Component Value Date TSH 1.50 04/15/2025 Lab Results Component Value Date COLORU Straw 04/16/2025 CLARITYU Clear 04/16/2025 LABPH 7.5 04/16/2025 PROTEINUR Negative 04/16/2025 GLUCOSEU Negative 04/16/2025 KETONESU Negative 04/16/2025 BLOODU Negative 04/16/2025 LEUKOCYTEUR Negative 04/16/2025 NITRITE Negative 04/16/2025 SEDIMENT NOT DONE 05/29/2013 WBCU <1 04/16/2025 RBCU 1 04/16/2025 HYALINECAST <=10 12/01/2018 BACTERIA Few (A) 04/15/2024 Lab Results Component Value Date AMPHETUR Presumptive Negative 04/16/2025 BARBITUR Presumptive Negative 04/16/2025 BENZOURQL Presumptive Negative 04/16/2025 THCUR Presumptive Negative 04/16/2025 COCAINEMETUR Presumptive Negative 04/16/2025 LABMETH Presumptive Negative 04/16/2025 LABOPIA Presumptive Negative 04/16/2025 OXYCODNEU Presumptive Negative 04/16/2025 Last EKG ECG 12 lead Collection Time: 06/25/25 6:53 PM Result Value Ref Range Ventricular Heart Rate 98 BPM Atrial Heart Rate 98 BPM LA Interval 156 ms QRSD Interval 108 ms QT Interval 392 ms QTC Interval 500 ms P Mathews 63 degrees R Mathews -23 degrees T Wave Mathews 65 degrees Narrative Normal sinus rhythm Minimal voltage criteria for LVH, may be normal variant ( Donny product ) Prolonged QT interval Abnormal ECG When compared with ECG of 14-Apr-2024 19:05, No significant change was found *Note: Due to a large number of results and/or encounters for the requested time period, some results have not been displayed. A complete set of results can be found in Results Review. ASSESSMENT: Carter Raymundo is a 69 year old man with schizoaffective disorder, hypertension, CKD, oropharyngeal dysphagia, drug induced Parkinsonism, presented from nursing facility with altered mental status, now medically cleared. On evaluation, patient is cooperative with constricted affect, linear thought process, and intact cognition. He is not overtly paranoid although nursing notes indicate that he hasbeen paranoid around medications especially. Patient appears to have worsening psychosis in settingof recent Clozapine decrease, and given severity of symptoms, meets section 12 criteria at this point. Would increase Clozapine further to manage the psychotic symptoms. Patient does not appear delirious, does not meet criteria for catatonia. DSM-5 DIAGNOSIS: Schizoaffective disorder RECOMMENDATIONS: On section 12, cannot leave AMA Change Clozapine to 175 mg nightly Continue Wellbutrin 100 mg TID, Trazodone 150 mg nightly Use Seroquel 50 mg TID PRN anxiety/agitation Discontinue the Trazodone Prn dose Brando Burris MD [1] atorvaSTATin, 20 mg, G-tube, QHS buPROPion, 100 mg, G-tube, TID carbidopa-levodopa, 2 tablet, G-tube, TID cloZAPine, 125 mg, G-tube, QHS cloZAPine, 25 mg, G-tube, Daily enoxaparin, 40 mg, Subcutaneous, Q24H CLAUDIA famotidine, 20 mg, G-tube, BID gabapentin, 100 mg, G-tube, BID gabapentin, 300 mg, G-tube, QHS multivitamin with minerals tablet, 1 tablet, Oral, Daily sodium chloride, 3 mL, Intravenous, Q12H CLAUDIA potassium chloride ER, 60 mEq, Oral, Once ramelteon, 8 mg, Oral, QHS sennosides, 17.6 mg, G-tube, BID tamsulosin, 0.4 mg, G-tube, QHS traZODone, 150 mg, G-tube, QHS [2] [3] calcium carbonate hydrOXYzine HCL Insert and Maintain Peripheral IV AND sodium chloride AND sodium chloride QUEtiapine traZODone * Juliet Becerra MD - 04/20/2025 6:56 AM EDT Images from the original note were not included. [facility] Department of Medicine [facility] Medicine Progress Note Patient: Carter Raymundo Admission Date: 04/15/2025 Length of Stay: 4 PCP: Kilo Huynh Attending: Bonifacio Agudelo MD Chief Complaint: Altered Mental Status OVERNIGHT EVENTS KUB approved for use by rads verbally over phone Nursing reporting desats to 70s while sleeping, short lived and improved once awake Also reporting pt seems more paranoid, thinks that nursing is trying to kill him, but then he falls back asleep SUBJECTIVE Pt feels well this morning. States that he is receiving good care at [facility]. Denies SI/HI. Has some back pain that he feels is manageable. Denies fevers, chills, nausea, vomiting, chest pain, shortness of breath, changes in bowel habits/urination. OBJECTIVE DATA VITALS T 99 ??F (37.2 ??C) HR (!) 111 BP (!) 155/97 RR 20 SpO2 (!) 91 % (8 alarms for briefly desatting, MD Preet Ambriz aware) O2 Device: None (Room air) 75.8 kg (167 lb 1.7 oz) Body mass index is 23.31 kg/m??. PHYSICAL EXAM GENERAL: NAD, lying in bed comfortably. HEENT: No scleral icterus, moist mucous membranes. CARDIAC: Regular rate and rhythm, no murmurs, rubs, or gallops; extremities warm, well perfused, nolower extremity edema. LUNG: Appears in no respiratory distress. No accessory muscle use. Lung cortez clear to auscultation bilaterally, with no crackles, wheezes, or rhonchi. ABD: Abdomen soft, nontender, nondistended without rebound tenderness or guarding. MSK: No focal joint swelling or deformities. NEURO: Alert, oriented. EOMI. Face symmetric, speech normal. Moving all extremities against gravity. SKIN: No significant rashes, sores or wounds noted on exposed skin. PSYCH: pleasant this morning, agitated at times with nursing LABS, MICROBIOLOGY and STUDIES reviewed in Epic. ASSESSMENT & PLAN Carter Raymundo is a 69 y.o. male with a relevant past medical history of HTN, CKD, schizoaffectivedisorder, and drug-induced parkinsonism, who presents with unresponsiveness, asphaia, and possible left facial droop. CT and MRI head r/o stroke, and TME workup thus far negative. Transient hypoxia in ED without fever, leukocytosis, and any localizing signs and symptoms points toward potential aspiration pneumonitis. Patient admitted to medicine for monitoring. Per psych presentation most consistent with delirium, no obvious organic cause of TME found. ACTIVE ISSUES # Brief episode of unresponsiveness # Schizoaffective disorder Patient presented with acute onset of unresponsiveness and aphasia. Also concern for facial asymmetry, however, per chart review, this is chronic. Etiology of altered mental status unclear. Code stroke activated upon presentation, however, CT/CTA head and neck did not reveal any acute intracranial abnormalities. Initially given lorazepam for concern for catatonia. Patient became more responsive following this. Has not needed additional doses since then with no further signs of catatonia, so mayhave been an episode of transient catatonia. May have occurred in the setting of missed medication doses that morning. Per chart reivew and brother's report patient's dose of clozapine has also been c hanged recently. Work-up for toxic-metabolic encephalopathy has been negative. - Psych following, appreciate recs - C/h buproprion 100mg TID - C/h clozapine (doses recently changed, confirmed most recent dose with Gemma Cain): 125 mg qHS + 25 mg qD - C/h trazodone 150mg qHs; added 12.5mg BID PRN for anxiety and irritability - Ramelteon 8 mg at bedtime - Hydroxizine 75 mg prn, Seroquel 50 mg prn - d/c lorazapam (initially started due to c/f catatonia) - Does not meet section 12 criteria but also not able to leave AMA # Dysphagia with G tube reliance Patient with history of oropharyngeal dysphagia. Pulled out G tube 04/19 AM - G tube replaced by IR on 04/19 PM, ok to use # Transient hypoxia # C/f aspiration pneumonitis Patient with episode of hypoxia in ED, quickly resolved without intervention. Patient with history of oropharyngeal dysphagia with G tube in place. Confirmed with Gemma Cain RN that patient is currently on pureed diet with SOLAR DESIGN ENGINEER at their facility following. High risk for aspiration and given transient nature suspect this was the driving etiology of hypoxia. CXR with unclear opacification, then obtained lateral view which showed some streakiness c/f atelectasis vs infection. Given lack of fevers, cough, and leukocytosis, low clinical suspicion for pneumonia and will defer Abx for now. - Continue pureed diet - Deferring [employer] DES[employer] for now - Nutrition consulted, appreciate recs - Consider out pt sleep study CHRONIC / STABLE ISSUES # Drug-induced Parkinsonism - C/h sinemet # CAD # HTN - C/h statin [] TI: Consideration of ASA # CKD - Trending Cr, currently at baseline # BPH - C/h tamsulosin # GERD - C/h pepcid CORE MEASURES - FEN: IVF PRN, replenish electrolytes, Diet Modified Texture; Pureed; Thin Liquids; Deliver To Nursing, Finger Foods/No Utensils, No Sharps, Safety Tray - PAML complete - Functional Status: Independent without use of assistive devices for ambulation - DVT prophylaxis: SC low molecular weight heparin - Access: peripheral IV x1 - Code: Full Code - Contact: brother Lr, Patient Contacts Name Legal Rel Relationship Phone Active Delvin Raymundo - Disposition: -- Anticipated discharge to: nursing home facility -- Anticipated discharge date: t+1 -- Anticipated discharge barriers: Completion of evaluation for altered mental status Extended Emergency Contact Information Primary Emergency Contact: Delvin Raymundo Mobile Relation: Brother Silver Solderer needed? No Juliet Becerra MD Dept of Medicine Cosigned by Bonifacio Agudelo MD at 04/20/2025 1:22 PM EDT Associated attestation - Bonifacio Agudelo MD - 04/20/2025 1:22 PM EDT I have seen and examined Mr. Raymundo, reviewed the findings and plan of care as documented by MD Rex and agree, except for any additional comments below. I reviewed overnight events. He has no specific complaints to me. He is quite pleasant this morning. His exam is stable and unchanged and I agree with documentation. Labs reviewed in detail. Imaging reviewed. Overall, we remain concerned about decompensated psychiatric illness. Delirium was also proposed asa possibility though seems to be fairly concrete and his paranoia and distrust. He remains on a multimodal regimen of clonazepam, bupropion, trazodone, hydroxyzine, Seroquel. His G-tube was successfully replaced. Will reengage psychiatry about further evaluation and management from a psychiatric perspective. Will also work with social work and case management to think about discharge planning. Bonifacio Agudelo MD Section of Hospital Medicine [facility] * Alyse Martinez MD - 04/19/2025 12:22 PM EDT Psychiatry Progress Note S: Chart reviewed, notable for pt intermittently refusing medications, exhibiting paranoia towards nursing and pulled out G tube. Received limited doses of clozapine after it was restarted. Discussed with 1:1 observer, who shares patient is intermittently communicative with care team and behavior seems volitional, sometimes he refuses to communicate or cooperate, other times he converses with the team. Patient seen in morning at around 9am. He greeted me and acknowledged his name. He tried to answer when I asked him how he was feeling though appeared at a loss of words and ultimately did not say anything. He reported he slept ok. His breakfast was brought in and he denied feeling hungry or wanting to eat anything at the moment. He denied any safety issues nor hallucinations. He stated Thank you when the interview was terminated. This afternoon pt's friend Cj (spelling may be incorrect) was visiting. Patient now appeared more conversant on a brief conversation. He shared not believing he has pneumonia but at least my sanity is ok . He shared he wasn't hungry at breakfast. He shared appreciation for his friend visiting and requested his friend enter the room to be with him. His friend provided collateral that the patient has not been doing well psychiatrically, has been much more paranoid, and has been declining eversince of his partner 3 years ago. Friend shared in the past patient had declined medications when he was more paranoid. His friend convinced patient to accept his medications right now, and approached nursing with this request. O: BP 132/83, T 99, RR 16, SpO2 96%, HR 100. BMI 23.3. This morning a limited neurological exam was performed. He was alert and oriented to his name. He didn't answer when I attempted to ask other cognitive questions. He intermittently followed instructions including shaking my hand when asked to. He exhibited intermittent jerky movements in bilateral hands and fingers. There was no cogwheeling or rigidity on attempts to examine his elbows though during this attempt he suddenly grabbed my hands tightly and started to twist my hands strongly, leading to termination of the exam. This afternoon patient appeared alert, oriented to person and location. He recognized his friend. He was unable to recall why he's in the hospital. There was no echolalia, stereotypy, mannerisms, staring, nor autonomic obedience both in the morning and in the afternoon. He appeared as a man of stated age, lying in stretcher. Intermittent eye contact. Speech normal volume, rhythm, rate. Mood ... . Affect confused, restricted range. Thought process limited in quantity, occasional halting, vague. Thought content without SI, HI, no elicited paranoia at time of assessm ent. Does not appear internally preoccupied. Insight limited. Judgement limited. Labs Neuroimaging: reviewed, somewhat limited by motion, overall global involutional changes appreciated. A: 69 y.o. M with h/o schizoaffective disorder, prior psychiatric admissions (most recently one year ago for SI, remotely for psychosis with poor self-care), no h/o SA/SIB, medical h/o CAD, gout, hyperlipidemia, HTN, CKD, oropharyngeal dysphagia c/b frequent aspiration now s/p PEG, drug-induced parkinsonism who is sent from SNF for an episode of unresponsiveness, aphasia and question of facial droop. He had declined all medications that morning. Evaluation for acute stroke was negative. Psychiatry consulted for assistance with diagnostic clarification, with initial differential ddx of catatonia vs delirium/encephalopathy vs psychosis. Patient received several brief administration of ativan over past several days for concerns of possible catatonia in setting of scoring modestly on fitzpatrick yasmin rating scale, though ultimately ativan orders discontinued due to absence of strong concern for catatonia. This weekend patient noted to exhibit paranoia, fluctuating mental status, intermittent refusal of care. Based on this history and upon evaluating the patient twice, serially, over course of today, with noted fluctuation in mental status and behavior, as well as improvement in engagement upon friend's presence, my current impression is that the patient more likely has delirium in setting of recent pneumonia, superimposed on hx of schizoaffective disorder with psychosis 2/2 recent clozapine adjustments and intermittent medication non adherence. My suspicion of catatonia is lower at this point--the patient certainly exhibits some symptoms that would score on the BFRS, however there is likely a degree of diagnostic shadowing with symptoms of psychosis and delirium mimicking catatonia. His friend provides helpful collateral that his paranoia is a large escort car driver of his limited engagement and negativistic behavior towards receiving care, and this again supports impression that his presentation is that of decompensated psychosis rather than catatonia. Treatment of ativan (1mg) in the past likely improved his psychosis and parkinsonism 2/2 holding sinemet rather than improving a true catatonia, and the dose of 1mg in itself does not constitute an adequate lorazepam challenge. Would suggest focus on monitoring and addressing delirium, treating underlying paranoia and decompensated psychosis by ensuring medication adherence and offering bridging medications as clozapine is being re-titrated. Ddx 1: delirium; 2: schizoaffective disorder P: -delirium precautions, continue to treat reversible causes of delirium including poor sleep, pain, constipation, toxic-metabolic etiologies, and limiting the use of deliriogenic medications -encourage family and friend presence, friend's presence today beneficial for patient's paranoia and agreeableness to take medications -continue 1:1 sitter for safety precautions -psychiatry will continue to follow for diagnostic clarification and assistance with disposition -if patient attempts to leave AMA, would encourage primary team to assess capacity on this decisionand psychiatry can be paged to assist if needed -medications >continue clozapine 25mg daily and clozapine 125mg nightly >bupropion 100mg TID >trazodone 150mg nightly >start ramelteon 8mg PO QHS >offer seroquel 50mg TID:PRN anxiety, irritability, paranoia, agitation -will monitor medication adherence, if patient continues to refuse PO medications consistently, next step to consider alternatives. -please ensure the patient has an adequate bowel regimen while on clozapine Alyse Martinez MD Psychiatry Moonlighter Recommendations relayed to primary team at 1510 via chat. Total time: 80min, 15min chart review, 20min face to face, 10min collateral, 30min documentation, 5min coordination with primary team. * Juliet Becerra MD - 04/19/2025 7:12 AM EDT Images from the original note were not included. [facility] Department of Medicine [facility] Medicine Progress Note Patient: Carter Raymundo Admission Date: 04/15/2025 Length of Stay: 3 PCP: Kilo Huynh Attending: Jono Aviles MD Chief Complaint: Altered Mental Status OVERNIGHT EVENTS Pt refusing meds, paranoid and distrusting per nurse. Patient became agitated while nurse was attempting to administer medications and pulled out his G tube. Denies any SI/HI this morning. SUBJECTIVE Patient unwilling to take his medications this morning. Feels that he does not need them. He pulledout his G tube because he thinks his swallowing is improved. OBJECTIVE DATA VITALS T 99 ??F (37.2 ??C) HR (!) 100 BP 132/83 RR 16 SpO2 96 % O2 Device: None (Room air) 75.8 kg (167 lb 1.7 oz) Body mass index is 23.31 kg/m??. PHYSICAL EXAM GENERAL: NAD, lying in bed comfortably. HEENT: No scleral icterus, moist mucous membranes. CARDIAC: Regular rate and rhythm, no murmurs, rubs, or gallops; extremities warm, well perfused, nolower extremity edema. LUNG: Appears in no respiratory distress. No accessory muscle use. Lung cortez clear to auscultation bilaterally, with no crackles, wheezes, or rhonchi. ABD: Abdomen soft, nontender, nondistended without rebound tenderness or guarding. MSK: No focal joint swelling or deformities. NEURO: Alert, oriented. EOMI. Face symmetric, speech normal. Moving all extremities against gravity. SKIN: No significant rashes, sores or wounds noted on exposed skin. PSYCH: paranoid this morning, agitated at times with nursing, LABS, MICROBIOLOGY and STUDIES reviewed in Epic. ASSESSMENT & PLAN Carter Raymundo is a 69 y.o. male with a relevant past medical history of HTN, CKD, schizoaffectivedisorder, and drug-induced parkinsonism, who presents with unresponsiveness, asphaia, and possible left facial droop. CT and MRI head r/o stroke, and TME workup thus far negative. Transient hypoxia in ED without fever, leukocytosis, and any localizing signs and symptoms points toward potential aspiration pneumonitis. Patient admitted to medicine for monitoring. Per psych presentation most consistent with delirium, no obvious organic cause of TME found, ACTIVE ISSUES # Brief episode of unresponsiveness # Schizoaffective disorder Patient presented with acute onset of unresponsiveness and aphasia. Also concern for facial asymmetry, however, per chart review, this is chronic. Etiology of altered mental status unclear. Code stroke activated upon presentation, however, CT/CTA head and neck did not reveal any acute intracranial abnormalities. Initially given lorazepam for concern for catatonia. Patient became more responsive following this. Has not needed additional doses since then with no further signs of catatonia, so mayhave been an episode of transient catatonia. May have occurred in the setting of missed medication doses that morning. Per chart reivew and brother's report patient's dose of clozapine has also been c hanged recently. Work-up for toxic-metabolic encephalopathy has been negative. - Psych following, appreciate recs - C/h buproprion 100mg TID - C/h clozapine (doses recently changed, confirmed most recent dose with Gemma Cain): 125 mg qHS + 25 mg qD - C/h trazodone 150mg qHs; added 12.5mg BID PRN for anxiety and irritability - D/c hydroxyzine 25 mg prn for anxiety due to anti-Ach effect and c/f delirium - d/c lorazapam (initially started due to c/f catatonia) - Does not meet section 12 criteria but also not able to leave AMA # Dysphagia with G tube reliance Patient with history of oropharyngeal dysphagia. Pulled out G tube 04/19 AM - Follow up with GI vs ACS vs IR for replacement of G tube # Transient hypoxia (resolved) # C/f aspiration pneumonitis Patient with episode of hypoxia in ED, quickly resolved without intervention. Patient with history of oropharyngeal dysphagia with G tube in place. Confirmed with Gemma Cain RN that patient is currently on pureed diet with SOLAR DESIGN ENGINEER at their facility following. High risk for aspiration and given transient nature suspect this was the driving etiology of hypoxia. CXR with unclear opacification, then obtained lateral view which showed some streakiness c/f atelectasis vs infection. Given lack of fevers, cough, and leukocytosis, low clinical suspicion for pneumonia and will defer Abx for now. - Continue pureed diet - Deferring SOLAR DESIGN ENGINEER for now - Nutrition consulted, appreciate recs CHRONIC / STABLE ISSUES # Drug-induced Parkinsonism - C/h sinemet # CAD # HTN - C/h statin [] TI: Consideration of ASA # CKD - Trending Cr, currently at baseline # BPH - C/h tamsulosin # GERD - C/h pepcid CORE MEASURES - FEN: IVF PRN, replenish electrolytes, Diet Modified Texture; Pureed; Thin Liquids; Deliver To Nursing, Finger Foods/No Utensils, No Sharps, Safety Tray - PAML complete - Functional Status: Independent without use of assistive devices for ambulation - DVT prophylaxis: SC low molecular weight heparin - Access: peripheral IV x1 - Code: Full Code - Contact: brother Lr, Patient Contacts Name Legal Rel Relationship Phone Active Delvin Raymundo Brother - Disposition: -- Anticipated discharge to: nursing home facility -- Anticipated discharge date: t+1 -- Anticipated discharge barriers: Completion of evaluation for altered mental status Extended Emergency Contact Information Primary Emergency Contact: Delvin Raymundo Mobile Relation: Brother Silver Solderer needed? No Juliet Becerra MD Dept of Medicine Cosigned by Jono Aviles MD at 04/19/2025 8:18 PM EDT Associated attestation - Jono Aviles MD - 04/19/2025 8:18 PM EDT I have seen and examined Mr. Raymundo, reviewed and agreed with the findings and plan of care as documented by Juliet Becerra MD, with additional comments below. While he was getting his meds via his G-tube, he pulled out his G-tube! When asked, he could not explain why he did it or what he was thinking about. IR quickly and graciously replaced the G-tube. He does not have delirium. #Schizoaffective disorder, bipolar type Psychiatry following #PEG tube dependent Pending abdominal XR, and when placement is confirmed and appropriate the G-tube can be used immediately, per IR I spent 61 minutes in this clinical encounter reviewing the medical record, seeing and examining the patient, writing notes, and communicating with the applicable medical and nursing teams. Jono Aviles MD Section of Hospital Medicine [facility] * Noe Ruiz MD - 04/18/2025 2:11 PM EDT Images from the original note were not included. [facility] Department of Medicine [facility] Medicine Progress Note Patient: Carter Raymundo Admission Date: 04/15/2025 Length of Stay: 2 PCP: Kilo Huynh Attending: Jono Aviles MD Chief Complaint: Altered Mental Status OVERNIGHT EVENTS No acute events overnight. Late in the morning, noted to be calling 911 saying that he wanted to . Added 1:1 for safety, psych is aware. SUBJECTIVE Does not feel well this morning, unable to elaborate further. OBJECTIVE DATA VITALS T 98.6 ??F (37 ??C) HR (!) 102 BP 129/82 RR 18 SpO2 96 % O2 Device: None (Room air) 75.8 kg (167 lb 1.7 oz) Body mass index is 23.31 kg/m??. PHYSICAL EXAM GENERAL: NAD, lying in bed comfortably. HEENT: No scleral icterus, moist mucous membranes. CARDIAC: Regular rate and rhythm, no murmurs, rubs, or gallops; extremities warm, well perfused, nolower extremity edema. LUNG: Appears in no respiratory distress. No accessory muscle use. Lung cortez clear to auscultation bilaterally, with no crackles, wheezes, or rhonchi. ABD: Abdomen soft, nontender, nondistended without rebound tenderness or guarding. MSK: No focal joint swelling or deformities. NEURO: Alert, oriented. EOMI. Face symmetric, speech normal. Moving all extremities against gravity. SKIN: No significant rashes, sores or wounds noted on exposed skin. PSYCH: linear, appropriate. LABS, MICROBIOLOGY and STUDIES reviewed in Epic. ASSESSMENT & PLAN Carter Raymundo is a 69 y.o. male with a relevant past medical history of HTN, CKD, schizoaffectivedisorder, and drug-induced parkinsonism, who presents with unresponsiveness, asphaia, and possible left facial droop. CT and MRI head r/o stroke, and TME workup thus far negative. Transient hypoxia in ED without fever, leukocytosis, and any localizing signs and symptoms points toward potential aspiration pneumonitis. Patient admitted to medicine for monitoring. Per psych presentation most consistent with delirium, no obvious organic cause of TME found, ACTIVE ISSUES # Brief episode of unresponsiveness # Schizoaffective disorder Patient presented with acute onset of unresponsiveness and aphasia. Also concern for facial asymmetry, however, per chart review, this is chronic. Etiology of altered mental status unclear. Code stroke activated upon presentation, however, CT/CTA head and neck did not reveal any acute intracranial abnormalities. Initially given lorazepam for concern for catatonia. Patient became more responsive following this. Has not needed additional doses since then with no further signs of catatonia, so mayhave been an episode of transient catatonia. May have occurred in the setting of missed medication doses that morning. Per chart reivew and brother's report patient's dose of clozapine has also been c hanged recently. Work-up for toxic-metabolic encephalopathy has been negative. - Psych following, appreciate recs - C/h buproprion 100mg TID - C/h clozapine (doses recently changed, confirmed most recent dose with Gemma Cain): 125 mg qHS + 25 mg qD - C/h trazodone 150mg qHs; added 12.5mg BID PRN for anxiety and irritability - D/c hydroxyzine 25 mg prn for anxiety due to anti-Ach effect and c/f delirium - d/c lorazapam (initially started due to c/f catatonia) - Does not meet section 12 criteria but also not able to leave AMA # Transient hypoxia # C/f aspiration pneumonitis Patient with episode of hypoxia in ED, quickly resolved without intervention. Patient with history of oropharyngeal dysphagia with G tube in place. Confirmed with Gemma Cain RN that patient is currently on pureed diet with SOLAR DESIGN ENGINEER at their facility following. High risk for aspiration and given transient nature suspect this was the driving etiology of hypoxia. CXR with unclear opacification, then obtained lateral view which showed some streakiness c/f atelectasis vs infection. Given lack of fevers, cough, and leukocytosis, low clinical suspicion for pneumonia and will defer Abx for now. - Continue pureed diet - Deferring SOLAR DESIGN ENGINEER for now - Nutrition consulted, appreciate recs CHRONIC / STABLE ISSUES # Drug-induced Parkinsonism - C/h sinemet # CAD # HTN - C/h statin [] TI: Consideration of ASA # CKD - Trending Cr, currently at baseline # BPH - C/h tamsulosin # GERD - C/h pepcid CORE MEASURES - FEN: IVF PRN, replenish electrolytes, Diet Modified Texture; Pureed; Thin Liquids; Deliver To Nursing, Finger Foods/No Utensils, No Sharps, Safety Tray - PAML complete - Functional Status: Independent without use of assistive devices for ambulation - DVT prophylaxis: SC low molecular weight heparin - Access: peripheral IV x1 - Code: Full Code - Contact: brother Lr, Patient Contacts Name Legal Rel Relationship Phone Active Delvin Raymundo Brother - Disposition: -- Anticipated discharge to: nursing home facility -- Anticipated discharge date: t+1 -- Anticipated discharge barriers: Completion of evaluation for altered mental status Extended Emergency Contact Information Primary Emergency Contact: Delvin Raymundo Mobile Relation: Brother Silver Solderer needed? No Noe Ruiz MD Dept of Medicine Cosigned by Jono Aviles MD at 04/18/2025 5:51 PM EDT Associated attestation - Jono Aviles MD - 04/18/2025 5:51 PM EDT I have seen and examined Mr. Raymundo, reviewed and agreed with the findings and plan of care as documented by Noe Ruiz MD, with additional comments below. He shares that he had times and thinks that they are poison because his brother does not like me. He acknowledges that someone who works here gave him Tums and he could trust that person. He admits that what he is saying sounds incredibly paranoid. He denies any SI, HI, auditory or visual hallucinations. He does not feel constipated but his last bowel movement was 2 to 3 days ago. He is able to correctly identify his name, location, and the date. He is able to spell the word WORLD forwardand backward. On my assessment, his attention is intact and is oriented. He does not appear to have an acute change in his cognitive baseline. He does not have delirium. I believe that he likely has paranoia in the setting of his schizoaffective disorder. Medical workup has been unremarkable and he does not haveany findings that would support metabolic cause of encephalopathy. Afebrile, satting well on room air. #Schizoaffective disorder, bipolar type #PEG tube dependent I spent 63 minutes in this clinical encounter reviewing the medical record, seeing and examining the patient, writing notes, and communicating with the applicable medical and nursing teams. Jono Aviles MD Section of Hospital Medicine [facility] * Sherman Zayas MD - 04/18/2025 9:11 AM EDT Images from the original note were not included. [facility] PSYCHIATRIC CONSULTATION FOLLOW-UP NOTE INTERVAL: -No acute events overnight. Patient refusing all care from nursing. Refusing all meds, assessments,tube feeds. Told nursing to go away. Refused positioning. - Vital signs notable for mild tachycardia i.e. 92. Max overnight 106. Blood pressure mildly elevated at 158/97-138/90. Afebrile. - CRP mildly elevated at 04/17. BMP WNL. CBC notable for mild anemia, otherwise normal. UA, U-Tox, respiratory viral panel all negative. MRI brain 04/16 no acute intracranial abnormality. Chest x-ray 04/15 notable for right lower lobe atelectasis with possible infection. - Patient refusing all afternoon and evening meds 04/17. Patient last received Ativan 04/16 given 1 mg x 2. HPI: On interview, patient is awake and alert. Sitting up in bed. Spontaneously drinking milk and orangejuice. Patient makes eye contact, no staring appreciated. Patient calm, able to engage in interview. Thought process more disorganized, some preoccupation that he is starving. Patient reports feeling hungry. Reports he has been in starvation. Believes that he may have given himself and pneumonia due to aspirating/choking on food. Patient unable to state why he is suffering from starvation. Reports that he has been getting good care in the hospital and cannot recall instances of people withholding food from him. Feels safe in the hospital. Denies any auditory or visual hallucinations. Denies any SI/HI. Reports mood is okay. Denies feeling depressed. Denies having any significant worries or anxiety. Patient does request more food. Asks this physician underwriter to order him a second breakfast of eggs, sausage, toast. Reports that he feels safe in the hospital. Is unable to recall why he is in the hospital. Cannot remember current living situation/social circumstances. Past patient about episode of care refusal yesterday and overnight. Patient unable to recall eventsof the previous day. Now willing to take medications and engage in care. Patient does endorse some lower back/buttocks pain due to reported sore on the back side. Collateral: Per nursing: Refusing care overnight. Inappropriate with nursing staff. Asking female staff to take their shirt off. No episodes of agitation. Updated brother The patient had a clozapine dose inadvertently decreased from 175 down to 125 mg. Has also been under increased stress due to increased physical pain. Ultimately became paranoid last Sunday after hisfinancial advisor called and spoke with him about investment and beneficiaries. Patient then began to believe that actors are managing and stealing his money. Now has become paranoid towards his brother. He is talking to some friends. Family is hoping to keep him out of the psychiatric hospital, but if he had to go in, family would prefer [facility]. Patient reportedly has been psychiatrically stablefor several decades and has not had any recent hospitalizations. REVIEW OF SYSTEMS: Positive for HPI, otherwise negative. EXAM: 04/18/2025 7:47 AM Vital Signs Temperature 98.6 ??F (37 ??C) Heart Rate 92 Respiration 18 SpO2 96 % Blood Pressure 138/90 [facility] catatonia rating scale: Excitement: 0 Immobility/stupor: 0 Mutism: 0 Starin Posturing/catalepsy: 0 Grimacin Echopraxia/echolalia: +1 (1 instance where patient repeated back food menu options) Stereotypy: 0 Verbigeration: 0 Rigidity: 0 Negativism: 0 Waxy flexibility: 0 Withdrawal: 0 Autonomic abnormality: +1, tachycardia (has pre-existing hypertension) Perseveration: +3 Total score: 5 Neurological: Motor: Patient moving all extremities spontaneously antigravity. Tone/bulk: Patient has mildly increased tone in bilateral lower extremities. Patient with decreasedtone in upper extremities bilaterally. No cogwheeling, rigidity, waxy flexibility in upper extremities. Station and gait: Deferred Abnormal movements: Patient noted to have low amplitude, high frequency resting tremor in bilateralupper extremities. Cognitive: Wakefulness/alertness: Awake and alert. Orientation: Oriented to self, oriented to year, month, late March. Oriented to [facility]. Disoriented to situation. Attention: Patient somewhat inattentive to interview, preoccupied with idea that he is starving. Not able to state months of year backwards. Calculations: 7 Quarters = $1.50 Memory: Unable to recall recent events, home living situation, circumstances leading to hospitalization. Abstraction: Deferred Fund of knowledge: Able to name current president drunk. Able to name past presidents fighting. Unable to recall further presidents. Language: Fluent in Thai without any paraphasic errors. Executive function: Deferred Mental Status: Appearance: Older man, appears stated age. Wearing hospital gown. Not appearing diaphoretic. Adequate grooming and hygiene given hospital setting. Sitting up in bed. Not appearing to be in acute distress. Behavior: Patient looks at this physician underwriter, engages in interview. No irritability or hostility. Appearsto be forthcoming. Cooperative. Not responding to internal stimuli, no PMA/PMR. Noted to have low amplitude, high frequency resting tremor in bilateral upper extremities. Makes appropriate eye contact. No staring noted. Mood: Okay. Affect: Calm, affect that is reactive. Speech: Intermittently increased speech latency, general appropriate rate, volume, prosody. Thought process: Somewhat circular thought process, some preoccupation that he is starving. Thought content and perceptions: Denies SI, HI, AVH. No paranoia, delusions, IOR. Some preoccupation that he is starving. Insight and judgment: Limited/limited MEDICATIONS: Scheduled Meds:Scheduled Medications[1] Continuous Infusions:Infusions Meds[2] PRN Meds:.PRN Medications[3] DATA: Lab Results Component Value Date WBC 9.19 04/18/2025 HGB 12.6 (L) 04/18/2025 HCT 37.0 (L) 04/18/2025 MCV 92 04/18/2025 PLT 257 04/18/2025 Lab Results Component Value Date GLUCOSE 97 04/18/2025 CALCIUM 9.3 04/18/2025 NA 141 04/18/2025 K 3.6 04/18/2025 CO2 22 04/18/2025 CL 106 04/18/2025 BUN 34 (H) 04/18/2025 CREATININE 1.10 04/18/2025 Lab Results Component Value Date ALT <5 04/15/2025 AST 19 04/15/2025 ALKPHOS 182 (H) 04/15/2025 BILITOT 0.4 04/15/2025 Lab Results Component Value Date CORONAVIRUS Negative 04/16/2025 Lab Results Component Value Date [id number] 04/14/2024 Lab Results Component Value Date FOLATE 11.0 04/14/2024 `Vitamin D 25-OH Level Date Value Ref Range Status 04/17/2025 38 30 - 60 ng/mL Final Lab Results Component Value Date TSH 1.50 04/15/2025 Lab Results Component Value Date COLORU Straw 04/16/2025 CLARITYU Clear 04/16/2025 LABPH 7.5 04/16/2025 PROTEINUR Negative 04/16/2025 GLUCOSEU Negative 04/16/2025 KETONESU Negative 04/16/2025 BLOODU Negative 04/16/2025 LEUKOCYTEUR Negative 04/16/2025 NITRITE Negative 04/16/2025 SEDIMENT NOT DONE 05/29/2013 WBCU <1 04/16/2025 RBCU 1 04/16/2025 HYALINECAST <=10 12/01/2018 BACTERIA Few (A) 04/15/2024 Lab Results Component Value Date AMPHETUR Presumptive Negative 04/16/2025 BARBITUR Presumptive Negative 04/16/2025 BENZOURQL Presumptive Negative 04/16/2025 THCUR Presumptive Negative 04/16/2025 COCAINEMETUR Presumptive Negative 04/16/2025 LABMETH Presumptive Negative 04/16/2025 LABOPIA Presumptive Negative 04/16/2025 OXYCODNEU Presumptive Negative 04/16/2025 Last EKG ECG 12 lead Collection Time: 04/15/25 6:53 PM Result Value Ref Range Ventricular Heart Rate 98 BPM Atrial Heart Rate 98 BPM LA Interval 156 ms QRSD Interval 108 ms QT Interval 392 ms QTC Interval 500 ms P Mathews 63 degrees R Mathews -23 degrees T Wave Mathews 65 degrees Narrative Normal sinus rhythm Minimal voltage criteria for LVH, may be normal variant ( [place] product ) Prolonged QT interval Abnormal ECG When compared with ECG of 14-Apr-2024 19:05, No significant change was found *Note: Due to a large number of results and/or encounters for the requested time period, some results have not been displayed. A complete set of results can be found in Results Review. ASSESSMENT: 69 y.o. M with h/o schizoaffective disorder, prior psychiatric admissions (most recently one year ago for SI, remotely for psychosis with poor self-care), no h/o SA/SIB, medical h/o CAD, gout, hyperlipidemia, HTN, CKD, oropharyngeal dysphagia c/b frequent aspiration now s/p PEG, drug-induced parkinsonism who is sent from SNF for an episode of unresponsiveness, aphasia and question of facial droop. Psychiatry following the goal of assessing mental status with concern for delirium versus catatonia. On evaluation yesterday evening, patient scored a 10 on Fitzpatrick Yasmin exam. Given concern the patient was likely catatonic, patient was restarted on Ativan 1 mg 3 times daily. Patient has not yet received any doses of Ativan. On my exam today, patient is notably awake and alert. No staring noted. No abnormal movements other than no tremor appreciated. He moves spontaneously, is observed to drink. On Fitzpatrick Yasmin screening exam for catatonia, scores only for 1 instance of echolalia, where patient repeated back menu options when discussing lunch. Extended exam positive for perseveration and tachycardia. Total score of 5, however tachycardia somewhat nonspecific in the setting of active infection. Similarly, not entirely clear that patient actively has echopraxia/echolalia given single occurrence on exam, which may have been somewhat socially appropriate given patient was repeating back menu options. Fairly low suspicion for catatonia at this time, more likely the patient has delirium in the setting of infection. Delirium can present with paranoia, care refusal, disinhibition. Patient's cognitiveexam today including limited memory, mild disorientation, inattention, poor calculations, poor fundof knowledge also is consistent with delirium, as is his waxing and waning mental status/behaviors i.e. inappropriate overnight, paranoia noted by psychiatrist Dr. Goetz last evening, intermittent carerefusal, which is more consistent with delirium. Patient notably has not received any Ativan between Fitzpatrick Yasmin score of 10 last night and 5 this morning. Possible that patient's recent paranoia may be in the setting of acute psychiatric decompensation after lowering patient's clozapine in the setting of known schizoaffective disorder. Somewhat less suspicious for acute decompensation given that patient not having any bizarre behaviors, not expressing any paranoia or delusions, and denying AVH, SI, HI on my interview. No safety concerns or symptoms concerning for mood disturbance. Given primary concern for delirium rather than catatonia, would stop lorazepam 1 mg 3 times daily. Psychiatry will continue to follow the patient closely and evaluate for any possible progression of catatonia symptoms. If patient has increase in Fitzpatrick Yasmin score tomorrow, would consider starting scheduled Ativan. At this time, given higher likelihood of Delirium, we will hold lorazepam given a worsen delirium. Would continue delirium precautions, and continue psychiatric medications including Clozapine, Wellbutrin, gabapentin, trazodone. Can also continue Sinemet for drug-induced parkinsonism. Tomorrow, ifpatient continues to appear well, would plan to increase clozapine to 150 mg nightly, 25 mg every morning. DSM-5 DIAGNOSIS: -Schizoaffective disorder -Delirium in setting of possible pneumonia/aspiration pneumonitis. -Rule out catatonia. RECOMMENDATIONS: -Patient not meeting section 12 criteria at this time. We will continue to follow patient, if he demonstrates signs of decompensated psychosis despite improved delirium i.e. paranoia, agitation, or new safety concerns arise will plan to reevaluate need for section 12. - Although I did not perform a capacity assessment, patient does demonstrate limited ability to understand or appreciate current medical illness in setting of suspected delirium. If patient were to attempt to leave AMA, would encourage primary team to assess for capacity to make this decision. Psychiatry can assist as able. -Given the patient's limited ability to understand or appreciate current medical illness in the setting of suspected delirium with notable cognitive deficits including inattention and disorientation,would encourage primary team to consider invoking patient's healthcare proxy. - We will continue to evaluate for catatonia versus delirium. Will also continue to evaluate for decompensated psychosis. Not paranoid today, and appears more delirious rather than decompensated psychosis. Believe at this time the paranoia more likely due to delirium. -Please stop lorazepam 1 mg 3 times daily, given lower concern for catatonia. - Please stop home hydroxyzine, given anticholinergic medications may worsen delirium Please continue the following home psychiatric medications: - Clozapine 25 mg daily and 125 mg nightly - Bupropion 100 mg 3 times daily - Trazodone 150 mg nightly -May offer trazodone 12.5 mg twice daily as needed anxiety, irritability -Please continue patient's Sinemet and other home medications as per primary team - Please continue delirium precautions for patient. -Psychiatry will continue to follow Sherman Zayas MD Psychiatry PGY3 Pager [phone] [1] atorvaSTATin, 20 mg, G-tube, QHS buPROPion, 100 mg, G-tube, TID carbidopa-levodopa, 2 tablet, G-tube, TID cloZAPine, 125 mg, G-tube, QHS cloZAPine, 25 mg, G-tube, Daily enoxaparin, 40 mg, Subcutaneous, Q24H CLAUDIA famotidine, 20 mg, G-tube, BID gabapentin, 100 mg, G-tube, BID gabapentin, 300 mg, G-tube, QHS multivitamin with minerals tablet, 1 tablet, Oral, Daily sodium chloride, 3 mL, Intravenous, Q12H CLAUDIA sennosides, 17.6 mg, G-tube, BID tamsulosin, 0.4 mg, G-tube, QHS traZODone, 150 mg, G-tube, QHS [2] [3] hydrOXYzine HCL Insert and Maintain Peripheral IV AND sodium chloride AND sodium chloride * Max Goetz MD - 04/17/2025 9:45 PM EDT [facility] PSYCHIATRIC CONSULTATION FOLLOW-UP NOTE INTERVAL HPI: 69 y/o M with h/o schizoaffective disorder, prior psychiatric admissions, no h/o SA/SIB, medical h/o CAD, gout, hyperlipidemia, HTN, CKD, oropharyngeal dysphagia c/b frequent aspiration now s/p PEG, drug-induced parkinsonism who was sent from SNF for an episode of unresponsiveness, aphasia and question of facial droop. Psychiatry was consulted with a question of toxic metabolic encephalopathy versus catatonia. He was found to have catatonia which resolved with lorazepam 1 mg 3 times daily, withthe lorazepam discontinued. Of note, he had an episode of transient hypoxia in the emergency department which quickly resolved without intervention, and they had low clinical suspicion for pneumonia,so they are deferring antibiotics for now and have consulted speech and swallow. Currently psychiatry is being asked to follow up to assess his current paranoia. 1. I spoke to his team. He has been refusing all medications as well as refusing to even talk to people, saying that this hospital is fake and all the nurses and doctors are frauds. He has not been agitated. 2. I attempted to speak with him and he refused to talk to me. He also continued to refuse medications. REVIEW OF SYSTEMS: Patient refusing to answer. EXAM: 04/17/2025 6:00 PM Vital Signs SpO2 100 % Neurological: Motor: He appears to have an oscillatory tremor in his hands as well as his face. No cogwheeling and no increased tone in all of his extremities. No palmomental, no rooting, no snouting, no glabellar, no grasp Station and gait: Unable to examine because patient is in bed Cognitive: Wakefulness/alertness: Awake and alert Orientation: Does not answer Attention: Does not answer Calculations: Does not answer Memory: Does not answer Abstraction: Does not answer Fund of knowledge: Does not answer Language: Fluent in Thai Executive function: Does not answer Mental Status: Appearance: Older than stated age appearing man lying in hospital bed wearing down Behavior: Looking away from me most of the time at times looking intensely at me with an breaking eye contact, strange facial expression with fidgeting fingers Mood: Does not answer Affect: Dismissive appearing Speech: Says few words, otherwise normal prosody, rate, volume Thought process: Vague Thought content and perceptions: Paranoid, but otherwise does not answer Insight and judgment: Poor and poor Amari Yasmin: 10 Mutism 1 Staring 2 Grimacing 2 Stereotypy 2 Withdrawal 1 Automatic obedience 2 --> I have a sharp needle in my pocket, please stick out your tongue so Ican stab it patient sticks out tongue I have a hammer in my pocket, stick out your hand so I can smash it patient puts out his hand I wait and do other parts of the exam. I then stated to him that I have a knife in my pocket please stick out your tongue so I can cut it and patient sticks his tongue. Turn your face towards my fist so I can punch it. Patient turns his face to my fist. This happenstwice. Interspersed between this I also asked him to give me a high-five which he refused, shake my hand which he refused, and to stick his tongue, which he agreed to again. MEDICATIONS: Scheduled Meds:Scheduled Medications[1] Continuous Infusions:Infusions Meds[2] PRN Meds:.PRN Medications[3] DATA: Lab Results Component Value Date WBC 9.29 04/17/2025 HGB 12.1 (L) 04/17/2025 HCT 36.3 (L) 04/17/2025 MCV 95 04/17/2025 PLT 229 04/17/2025 Lab Results Component Value Date GLUCOSE 86 04/17/2025 CALCIUM 9.2 04/17/2025 NA 143 04/17/2025 K 4.0 04/17/2025 CO2 25 04/17/2025 CL 107 04/17/2025 BUN 27 (H) 04/17/2025 CREATININE 1.10 04/17/2025 Lab Results Component Value Date ALT <5 04/15/2025 AST 19 04/15/2025 ALKPHOS 182 (H) 04/15/2025 BILITOT 0.4 04/15/2025 Lab Results Component Value Date CORONAVIRUS Negative 04/16/2025 Lab Results Component Value Date [id number] 04/14/2024 Lab Results Component Value Date FOLATE 11.0 04/14/2024 `Vitamin D 25-OH Level Date Value Ref Range Status 04/17/2025 38 30 - 60 ng/mL Final Lab Results Component Value Date TSH 1.50 04/15/2025 Lab Results Component Value Date COLORU Straw 04/16/2025 CLARITYU Clear 04/16/2025 LABPH 7.5 04/16/2025 PROTEINUR Negative 04/16/2025 GLUCOSEU Negative 04/16/2025 KETONESU Negative 04/16/2025 BLOODU Negative 04/16/2025 LEUKOCYTEUR Negative 04/16/2025 NITRITE Negative 04/16/2025 SEDIMENT NOT DONE 05/29/2013 WBCU <1 04/16/2025 RBCU 1 04/16/2025 HYALINECAST <=10 12/01/2018 BACTERIA Few (A) 04/15/2024 Lab Results Component Value Date AMPHETUR Presumptive Negative 04/16/2025 BARBITUR Presumptive Negative 04/16/2025 BENZOURQL Presumptive Negative 04/16/2025 THCUR Presumptive Negative 04/16/2025 COCAINEMETUR Presumptive Negative 04/16/2025 LABMETH Presumptive Negative 04/16/2025 LABOPIA Presumptive Negative 04/16/2025 OXYCODNEU Presumptive Negative 04/16/2025 Last EKG ECG 12 lead Collection Time: 04/14/24 7:06 PM Result Value Ref Range Ventricular Heart Rate 91 BPM Atrial Heart Rate 91 BPM LA Interval 146 ms QRSD Interval 100 ms QT Interval 390 ms QTC Interval 479 ms P Mathews 43 degrees R Mathews -27 degrees T Wave Mathews 61 degrees Narrative --- Poor data quality, interpretation may be adversely affected Normal sinus rhythm Minimal voltage criteria for LVH, may be normal variant ( R in aVL ) Borderline ECG When compared with ECG of 23-Apr-2022 18:53, No significant change was found *Note: Due to a large number of results and/or encounters for the requested time period, some results have not been displayed. A complete set of results can be found in Results Review. ASSESSMENT: 69 y/o M with h/o schizoaffective disorder, prior psychiatric admissions, no h/o SA/SIB, medical h/o CAD, gout, hyperlipidemia, HTN, CKD, oropharyngeal dysphagia c/b frequent aspiration now s/p PEG, drug-induced parkinsonism who was sent from SNF for an episode of unresponsiveness, aphasia and question of facial droop. Psychiatry was consulted with a question of toxic metabolic encephalopathy versus catatonia. He was found to have catatonia which resolved with lorazepam 1 mg 3 times daily, withthe lorazepam discontinued. Of note, he had an episode of transient hypoxia in the emergency department which quickly resolved without intervention, and they had low clinical suspicion for pneumonia,so they are deferring antibiotics for now and have consulted speech and swallow. Currently psychiatry is being asked to follow up to assess his current paranoia. The team reports that the patient has been making paranoid comments and has been refusing intake and medicines. On exam, the patient refuses to engage with me, but scores a 10 on the Fitzpatrick Yasmin exam, and most notably, has multiple examples of automatic obedience (I explained to the patient that this was just part of the exam and I did not intend to harm him). I also interspersed the automatic obedience examples throughout the exam, and also gave him other commands to which she refused. However he demonstrated exaggerated cooperation with my pretend extreme requests multiple times and refused to do simple ones. Most likely, the patient is again catatonic. I recommend invoking health care proxy and treating with lorazepam. DSM-5 DIAGNOSIS: -Schizoaffective disorder -Catatonia R/o delirium RECOMMENDATIONS: -Holding off on section 12 until patient is medically cleared -Cannot leave AMA -Have primary team discuss with brother, and potentially invoke healthcare proxy, who is the brother, by documenting in the note. At that point, the team can instead of asking the patient, ask the healthcare proxy if the proxy consents to giving the patient medication, but the medications cannot begiven if patient explicitly says no to them, and would require at that point, confirming the healthcare proxy through the courts -Start lorazepam liquid 1 mg G-tube 3 times daily -Continue Clozapine 25 mg G-tube in the morning and 125 mg G-tube nightly -Continue bupropion 100 mg G-tube 3 times daily -Continue hydroxyzine 25 mg G-tube 4 times daily as needed for anxiety -Continue Sinemet and other home medications as per primary team -For agitation that cannot be handled with verbal de-escalation and would pose a risk to the patient or the team, hydroxyzine 75 mg g-tube or IM. Do not use haloperidol, fluphenazine, ziprasidone, droperidol, chlorpromazine since he has existing Parkinsonism -We will continue to follow Max Goetz MD [1] atorvaSTATin, 20 mg, G-tube, QHS buPROPion, 100 mg, G-tube, TID carbidopa-levodopa, 2 tablet, G-tube, TID cloZAPine, 125 mg, G-tube, QHS cloZAPine, 25 mg, G-tube, Daily enoxaparin, 40 mg, Subcutaneous, Q24H CLAUDIA famotidine, 20 mg, G-tube, BID gabapentin, 100 mg, G-tube, BID gabapentin, 300 mg, G-tube, QHS multivitamin with minerals tablet, 1 tablet, Oral, Daily sodium chloride, 3 mL, Intravenous, Q12H CLAUDIA sennosides, 17.6 mg, G-tube, BID tamsulosin, 0.4 mg, G-tube, QHS traZODone, 150 mg, G-tube, QHS [2] [3] hydrOXYzine HCL Insert and Maintain Peripheral IV AND sodium chloride AND sodium chloride Cosigned by Migdalia Rubio MD at 04/20/2025 2:14 PM EDT Associated attestation - Migdalia Rubio MD - 04/20/2025 2:14 PM EDT I did not personally examine this patient but was available to the resident for any questions or concerns; please see Dr. Camarillo f/u note dated 04/20 for further updated recommendations. Migdalia Rubio MD Attending Psychiatrist * Juliet Becerra MD - 04/17/2025 7:04 AM EDT Images from the original note were not included. [facility] Department of Medicine [facility] Medicine Progress Note Patient: Carter Raymundo Admission Date: 04/15/2025 Length of Stay: 1 PCP: Kilo Huynh Attending: Bonifacio Agudelo MD Chief Complaint: Altered Mental Status OVERNIGHT EVENTS No acute events overnight. SUBJECTIVE Patient has some mild neck and shoulder pain this morning. Does not want to go back to his facility OBJECTIVE DATA VITALS T 98.5 ??F (36.9 ??C) HR (!) 94 BP 109/76 RR 20 SpO2 98 % O2 Device: None (Room air) 97.3 kg (214 lb 8.1 oz) Body mass index is 29.92 kg/m??. PHYSICAL EXAM GENERAL: NAD, lying in bed comfortably. HEENT: No scleral icterus, moist mucous membranes. CARDIAC: Regular rate and rhythm, no murmurs, rubs, or gallops; extremities warm, well perfused, nolower extremity edema. LUNG: Appears in no respiratory distress. No accessory muscle use. Lung cortez clear to auscultation bilaterally, with no crackles, wheezes, or rhonchi. ABD: Abdomen soft, nontender, nondistended without rebound tenderness or guarding. MSK: No focal joint swelling or deformities. NEURO: Alert, oriented. EOMI. Face symmetric, speech normal. Moving all extremities against gravity. SKIN: No significant rashes, sores or wounds noted on exposed skin. PSYCH: linear, appropriate. LABS, MICROBIOLOGY and STUDIES reviewed in Epic. ASSESSMENT & PLAN Carter Raymundo is a 69 y.o. male with a relevant past medical history of HTN, CKD, schizoaffectivedisorder, and drug-induced parkinsonism, who presents with unresponsiveness, asphaia, and possible left facial droop. CT and MRI head r/o stroke, and TME workup thus far negative. Transient hypoxia in ED without fever, leukocytosis, and any localizing signs and symptoms points toward potential aspiration pneumonitis. Patient admitted to medicine for monitoring as clozapine dose is adjusted, TME exonerated, and then for placement. ACTIVE ISSUES # Brief episode of unresponsiveness # Schizoaffective disorder Patient presented with acute onset of unresponsiveness and aphasia. Also concern for facial asymmetry, however, per chart review, this is chronic. Etiology of altered mental status unclear. Code stroke activated upon presentation, however, CT/CTA head and neck did not reveal any acute intracranial abnormalities. Initially given lorazepam for concern for catatonia. Patient became more responsive following this. Has not needed additional doses since then with no further signs of catatonia, so mayhave been an episode of transient catatonia. May have occurred in the setting of missed medication doses that morning. Per chart reivew and brother's report patient's dose of clozapine has also been c hanged recently. Work-up for toxic-metabolic encephalopathy has been negative. - Psych following, appreciate recs - C/h buproprion 100mg TID - C/h clozapine (doses recently changed, confirmed most recent dose with Gemma Cain): 125 mg qHS + 25 mg qD - C/h trazodone - Hydroxyzine 25 mg prn for anxiety - d/c lorazapam - Section 12 in chart # Transient hypoxia # C/f aspiration pneumonitis Patient with episode of hypoxia in ED, quickly resolved without intervention. Patient with history of oropharyngeal dysphagia with G tube in place. Confirmed with Gemma Cain RN that patient is currently on pureed diet with [facility] at their facility following. High risk for aspiration and given transient nature suspect this was the driving etiology of hypoxia. CXR with unclear opacification, then obtained lateral view which showed some streakiness c/f atelectasis vs infection. Given lack of fevers, cough, and leukocytosis, low clinical suspicion for pneumonia and will defer Abx for now. - Continue pureed diet - Consider [employer] re-evaluation here - Consider nutrition consult for any additional nutritional needs via G tube CHRONIC / STABLE ISSUES # Drug-induced Parkinsonism - C/h sinemet # CAD # HTN - C/h statin [] TI: Consideration of ASA # CKD - Trending Cr, currently at baseline # BPH - C/h tamsulosin # GERD - C/h pepcid CORE MEASURES - FEN: IVF PRN, replenish electrolytes, Diet Modified Texture; Pureed; Thin Liquids; Deliver To Nursing, Finger Foods/No Utensils, No Sharps, Safety Tray - PAML complete - Functional Status: Independent without use of assistive devices for ambulation - DVT prophylaxis: SC low molecular weight heparin - Access: peripheral IV x1 - Code: Full Code - Contact: brother Lr, Patient Contacts Name Legal Rel Relationship Phone Active Delvin Raymundo Brothmarisa - Disposition: -- Anticipated discharge to: nursing home facility -- Anticipated discharge date: t+1 -- Anticipated discharge barriers: Completion of evaluation for altered mental status Extended Emergency Contact Information Primary Emergency Contact: Delvin Raymundo Mobile Relation: Brother Silver Solderer needed? No Juliet Becerra MD Dept of Medicine Cosigned by Bonifacio Agudelo MD at 04/17/2025 12:58 PM EDT Associated attestation - Bonifacio Agudelo MD - 04/17/2025 12:58 PM EDT I have seen and examined Mr. Raymundo, reviewed the findings and plan of care as documented by MD Rex and agree, except for any additional comments below. I agree with subjective assessment. He answers questions appropriately but seems relatively paranoid of us. Labs reviewed in detail. He appears stable at this time with no ongoing concerns for catatonia. We are resuming his home regimen including his clozapine. I reviewed psychiatry recommendations. There is question of whether heremains with section 12 and we will need to confirm with psychiatry. Speech and swallow was consulted. He has no evidence of aspiration pneumonitis or infection. He remains on his Sinemet. Will need further collateral regarding his situation at [facility]. His DC plan is not yet clear to me. Bonifacio Agudelo MD Section of Hospital Medicine [facility] documented in this encounter H&P Notes * Peña Salas MD - 04/16/2025 2:44 PM EDT Images from the original note were not included. [facility] Department of Medicine [facility] Medicine Admission Note Patient: Carter Raymundo Admission Date: 04/15/2025 PCP: Kilo Huynh Attending: Chuy Hernandez MD Chief Complaint: Altered mental status SUBJECTIVE HISTORY OF PRESENTING ILLNESS Carter Raymundo is a 69 y.o. male with a relevant past medical history of HTN, CKD, schizoaffectivedisorder, and drug-induced parkinsonism, who presents with unresponsiveness, asphaia, and possible left facial droop. Per chart review, Mr. Raymundo was brought in by EMS from [facility] yesterday evening. He was found unresponsive at 5:30 PM at [facility] after being baseline at 4:15 PM. He was not talking orresponding and was noted to have facial asymmetry, initially described as a possible left facial droop. He had declined all of his medications that morning. Upon discussion with the patient, Mr. Raymundo reports he currently feels fine. Upon asking what happened yesterday, he reports the staff at [facility] have been tormenting him and trying to break him down. Reports that on evening, the staff induced muscle spasms in him for several hours, but that he was able to endure the horrendous pain. Reports his brother called him Sunday morning and that his brother was surprised to hear he was still alive. Mr. Raymundo reports that he devised a plan to get out of [facility] by faking a stroke. He reports this plan was a success and is adamant that he does not want to return to [facility], stating he would prefer to live on his own. Upon further questioning of the events that occurred while he was unresponsive, Mr. Raymundo could not accurately recall them (he did not believe that he was brought to the hospital from [facility] by ambulance). Review of systems notable per above history, otherwise negative. In the ED, initial vitals were as follows: ED Triage Vitals BP Heart Rate Resp Temp SpO2 04/15/25 1811 04/15/25 1811 04/15/25 1811 04/15/25 1811 04/15/25 1859 (!) 158/100 (!) 104 16 98.2 ??F (36.8 ??C) 97 % Initial ED exam notable for: Unresponsive and not following commands. Possible left facial droop, no other focal neurological deficits. Initial ED labs: Troponin 82. Relevant imaging obtained in ED: CT/CTA head and neck did not demonstrate any acute intracranial abnormalities. CXR with possible consolidation in left lower lobe. Medications administered in ED: Medications carbidopa-levodopa (SINEMET) 25-100 mg per tablet 2 tablet (2 tablets G-tube Given 04/16/251652) atorvaSTATin (LIPITOR) tablet 20 mg (has no administration in time range) hydrOXYzine HCL (ATARAX) tablet 25 mg (has no administration in time range) famotidine (PEPCID) tablet 20 mg (has no administration in time range) gabapentin (NEURONTIN) capsule 100 mg (100 mg G-tube Given 04/16/251652) gabapentin (NEURONTIN) capsule 300 mg (has no administration in time range) tamsulosin (FLOMAX) 24 hr capsule 0.4 mg (has no administration in time range) traZODone (DESYREL) tablet 150 mg (has no administration in time range) sennosides oral syrup 17.6 mg (has no administration in time range) peripheral line: sodium chloride (NS) 0.9% flush (has no administration in time range) And peripheral line: sodium chloride 0.9 % (NS) flush (has no administration in time range) enoxaparin (LOVENOX) injection 40 mg (has no administration in time range) buPROPion (WELLBUTRIN) tablet 100 mg (has no administration in time range) cloZAPine (CLOZARIL) tablet 125 mg (has no administration in time range) cloZAPine (CLOZARIL) tablet 25 mg (has no administration in time range) iohexoL (OMNIPAQUE) 350 mg iodine/mL injection 70 mL (70 mL Intravenous Given 04/15/25 8912) LORazepam (ATIVAN) injection 1 mg (1 mg Intravenous Given 04/16/25 0025) acetaminophen (TYLENOL) tablet 1,000 mg (1,000 mg G-tube Given 04/16/25 0947) [facility] Past Medical History[1] Social History and Family History were reviewed in [facility]. MEDICATIONS PAML Complete Prior to Admission medications Medication Sig Start Date End Date Taking? Authorizing Provider atorvaSTATin (LIPITOR) 20 MG tablet TAKE 1 TABLET (20 MG TOTAL) BY MOUTH DAILY. Patient taking differently: Take 1 tablet (20 mg total) by mouth daily. 09/18/17 Yes Marcin Angel MD buPROPion (WELLBUTRIN) 100 MG tablet Take 1 tablet (100 mg total) by mouth 3 times a day. Yes Historical Provider, carbidopa-levodopa (SINEMET) 25-100 mg per tablet 2 tablets by G-tube route 3 times a day. Yes Historical Provider, cloZAPine (CLOZARIL) 100 MG tablet 1 tablet (100 mg total) by G-tube route at bedtime. Take with 75mg for total dose of 175 mg at bedtime Yes Historical Provider, cloZAPine (CLOZARIL) 25 MG tablet 3 tablets (75 mg total) by G-tube route at bedtime. Take with 100mg for total dose of 175 mg at bedtime Yes Historical Provider, docusate sodium (COLACE) 50 mg/5 mL liquid 10 mL (100 mg total) by G-tube route every morning &every evening. Yes Historical Provider, famotidine (PEPCID) 20 MG tablet 1 tablet (20 mg total) by G-tube route every morning & every evening. Yes Historical Provider, fluoride, sodium, (FLUORIDEX DAILY DEFENSE) 1.1 % Pste Apply 1 Application to teeth at bedtime. YesHistorical Provider, fluticasone propionate (FLONASE) 50 mcg/actuation nasal spray 1 spray by Each Nare route daily. YesHistorical Provider, gabapentin (NEURONTIN) 100 MG capsule 1 capsule (100 mg total) by G-tube route every morning & every evening. Yes Historical Provider, gabapentin (NEURONTIN) 300 MG capsule 1 capsule (300 mg total) by G-tube route at bedtime. Yes Historical Provider, hydrOXYzine HCL (ATARAX) 25 MG tablet 1 tablet (25 mg total) by G-tube route 4 times a day. Yes Historical Provider, lidocaine (LIDODERM) 5 % patch Place 1 patch on the skin daily. Remove & Discard patch within 12 hours or as directed by MD Yes Historical Provider, potassium, sodium phosphates (PHOS-NAK) 280-160-250 mg PwPk Take 1 packet by mouth 3 times a day before meals. Yes Historical Provider, sennosides 8.8 mg/5 mL oral syrup 10 mL (17.6 mg total) by G-tube route every morning & every evening. Yes Historical Provider, tamsulosin (FLOMAX) 0.4 mg cap 24 hr capsule 1 capsule (0.4 mg total) by G-tube route at bedtime. Yes Historical Provider, traMADoL 25 mg Tab 3 tablets (75 mg total) by G-tube route 4 times a day. Yes Historical Provider, traZODone (DESYREL) 150 MG tablet 1 tablet (150 mg total) by G-tube route at bedtime. Yes Historical Provider, ALLERGIES Allergies[2] OBJECTIVE DATA VITALS T 98.7 ??F (37.1 ??C) HR (!) 94 BP (!) 141/88 RR 16 SpO2 100 % O2 Device: None (Room air) There is no height or weight on file to calculate BMI. PHYSICAL EXAM GENERAL: NAD, lying in bed comfortably. HEENT: No scleral icterus, moist mucous membranes. CARDIAC: Regular rate and rhythm, no murmurs, rubs, or gallops; extremities warm, well perfused, nolower extremity edema. LUNG: Appears in no respiratory distress. No accessory muscle use. Lung cortez clear to auscultation bilaterally, with no crackles, wheezes, or rhonchi. ABD: Abdomen soft and nondistended. MSK: No focal joint swelling or deformities. NEURO: Alert, oriented. Moving all extremities against gravity. Tremor at rest. SKIN: No significant rashes, sores or wounds noted on exposed skin. PSYCH: Guarded. Expresses paranoid beliefs. LABS reviewed in [facility], notable as above. STUDIES reviewed in [facility], notable as above. ASSESSMENT & PLAN Carter Raymundo is a 69 y.o. male with a relevant past medical history of HTN, CKD, schizoaffectivedisorder, and drug-induced parkinsonism, who presents with unresponsiveness, asphaia, and possible left facial droop. CT and MRI head r/o stroke, and TME workup thus far negative. Transient hypoxia in ED without fever, leukocytosis, and any localizing signs and symptoms points toward potential aspiration pneumonitis. Patient admitted to medicine for monitoring as clozapine dose is adjusted, TME exonerated, and then for placement. ACTIVE ISSUES # Altered mental status # C/f catatonia # Schizoaffective disorder Patient presented with acute onset of unresponsiveness and aphasia. Also concern for facial asymmetry, however, per chart review, this is chronic. Etiology of altered mental status unclear. Code stroke activated upon presentation, however, CT/CTA head and neck did not reveal any acute intracranial abnormalities. Initially given lorazepam for concern for catatonia. Patient became more responsive following this. Has not needed additional doses since then with no further signs of catatonia, so mayhave been an episode of transient catatonia. May have occurred in the setting of missed medication doses that morning. Per chart reivew and brother's report patient's dose of clozapine has also been c hanged recently. Work-up for toxic-metabolic encephalopathy has been negative. - Psych following, appreciate recs - C/h buproprion - C/h clozapine (doses recently changed, confirmed most recent dose with Gemma Cain): 125 mg qHS + 25 mg qD - C/h trazodone - Hydroxyzine prn for anxiety - Not on section 12 per psych # Transient hypoxia # C/f aspiration pneumonitis Patient with episode of hypoxia in ED, quickly resolved without intervention. Patient with history of oropharyngeal dysphagia with G tube in place. Confirmed with Gemma Cain RN that patient is currently on pureed diet with [facility] [facility] at their facility following. High risk for aspiration and given transient nature suspect this was the driving etiology of hypoxia. CXR with unclear opacification, then obtained lateral view which showed some streakiness c/f atelectasis vs infection. Given lack of fevers, cough, and leukocytosis, low clinical suspicion for pneumonia and will defer Abx for now. - Continue pureed diet - Consider SOLAR DESIGN ENGINEER re-evaluation here - Consider nutrition consult for any additional nutritional needs via G tube CHRONIC / STABLE ISSUES # Drug-induced Parkinsonism - C/h sinemet # CAD # HTN - C/h statin [] TI: Consideration of ASA # CKD - Trending Cr, currently at baseline # BPH - C/h tamsulosin # GERD - C/h pepcid CORE MEASURES - FEN: IVF PRN, replenish electrolytes, Diet Modified Texture; Pureed; Thin Liquids; Deliver To Nursing, Finger Foods/No Utensils, No Sharps, Safety Tray - PAML complete - Functional Status: Independent without use of assistive devices for ambulation - DVT prophylaxis: SC low molecular weight heparin - Access: peripheral IV x1 - Code: Full Code - Contact: Delvin Raymundo, brother, - Disposition: -- Anticipated discharge to: nursing home facility -- Anticipated discharge date: t+1 -- Anticipated discharge barriers: Completion of evaluation for altered mental status Rafia Rodríguez, MS2 [1] Past Medical History: Diagnosis Date Anxiety Coronary artery disease 09/2015 Status post cardiac catheterization with decreased flow in RCA as well as left circumflex artery. No intervention. Erectile dysfunction Gout Hyperlipidemia Schizoaffective disorder (HCC) [2] Allergies Allergen Reactions Morphine Itching Cosigned by Chuy Hernandez MD at 04/16/2025 10:50 PM EDT Associated attestation - Chuy Hernandez MD - 04/16/2025 10:50 PM EDT I saw and examined the patient personally today, I reviewed available laboratory, report, and imaging data in [facility]. I have reviewed the above note and I agree with the documented history, exam, and plan which I helped to formulate today, with the exception of any modifications or additions as notedbelow. This is a 69-year-old man with history of CAD, CKD, HTN, BPH, recurrent aspiration s/p PEG tube placement, schizoaffective disorder and drug-induced parkinsonism who presented from [facility] with unresponsiveness, and expressive aphasia. Code stroke initially activated but CTA H&N and MRIbrain negative and neurology has since signed off. Psychiatry was consulted and patient was given ativan for suspected catatonia with improvement in symptoms. He was initially placed in ED OBS under section 12, but today after interval improvement in exam, psych lifted section 12. He has been notedto have intermittent hypoxia in the ED and CXR raised concern for possible retrocardiac opacity so he was given CTX/azithro and admitted for ongoing management. Since then, he has been weaned off supplemental O2 and has continued improvement in level of alertness and engagement in exam. Repeat CXR with lateral without focal consolidation except for streaky opacity in the RLL suggestive of atelectasis though infection difficult to exclude. He has been afebrile, without leukocytosis, saturating well on room air and denies any respiratory complaints. Overall suspect atelectasis versus aspirationpneumonitis and have low clinical suspicion for bacterial pneumonia at this time so will hold further doses of antibiotics pending clinical course. He continues to exhibit paranoid behavior and thought process which has reportedly been worse recently in the setting of reduced dose clozapine (dose reduced recently for renal dosing). His main complaint is that he doesn't want to return to [facility] specifically. Will plan to resume home psychotropic medications as per psych recs and hold further doses of benzodiazepines at this time. Otherwise will stop antibiotics and monitor on continuous O2 with aspiration precautions. Will involve PT/CM in the morning for dispo planning. Chuy Hernandez MD Section of Hospital Medicine [facility] 04/16/2025 documented in this encounter Consult Notes * Saundra Soliman MD - 06/16/2025 4:23 PM EDT Psychiatry Consult Attending Note I saw and evaluated the patient in conjunction with resident Dr. Rivas. Dr. Rivas saw the patient on 06/15, and I saw the patient on 06/16. Total time spent was 50 minutes including chart review, interview, and care coordination. I reviewed Dr. Penaloza's 06/15 note and agree with the documented findings and plan of care with the following additions/modifications: On psychiatric evaluation today, patient was initially perseverative about contacting newspaper outlets because he felt we were denying him appropriate treatment. When asked to elaborate on what treatment he felt he wasn't receiving, he was perseverative that he shouldn't have to ask multiple timesfor a psychiatrist to see him before a psychiatrist shows up. He was reassured to see me, and when I told him that I felt that his medical team was doing the best they can and working hard to provideexcellent care to all their patients including him, he said he could agree a little since I was talking to him. 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 Denied any wishes, SI/HI, and AH/VH. Non-pressured speech.No acute thought or behavioral disorganization. No excessive psychomotor activity or agitation. Cognitively, oriented to person, [facility], June 14, 2024, and superficially to situation; attentive to interview and could do MOYB; 3/3 delayed recall without cues; and could do verbal trails until 8-H. On motor exam, mild postural left hand tremor but no rigidity. Overall, ongoing improving cognitive function consistent with resolving delirium and active paranoia and grandiosity concerning for decompensation of underlying schizoaffective disorder bipolar type. Appreciate SW involvement to provide patient additional support and help with coping this admission. Patient also asking to speak with SW. No medication changes today. Remainder of recommendations per resident note on 06/15. Saundra Soliman MD Instruction Dean, [facility] Psychiatric Consultation-Liaison Service Pager [phone] ([phone] for urgent questions and on nights/weekends/holidays) * Nedra Rader MS CCC-SOLAR DESIGN ENGINEER - 06/03/2025 1:25 PM EDT Speech-Language Pathology Contact Note Consultation received for bedside swallowing evaluation in the setting of chronic dysphagia, with acute concern for aspiration PNA. Chart review completed. Briefly, this is a 70 yo M with PMH of HTN, CKD, schizoaffective disorder, and drug-induced parkinsonism, who initially presented with unresponsiveness, asphasia, and possible left facial droop concerning for stroke versus TME, but with unremarkable workup. Admitted to medicine for monitoring and re-initiation of clozapine dosing, now medically stable pending inpatient psych placement for decompensated schizoaffective disorder. Pt with extensive hx of dysphagia with several swallow studies on file though OSHs. See below from most recent VFSS: Inpatient VFSS at OSH 02/09/25 Overall, pt presents with severe-profound pharyngeal dysphagia likely related to baseline dysphagia now further confounded by pre-vertebral swelling due to ACDF. Due to concerns for inefficiency andhigh aspiration risk with PO intake, recommend pt to remain NPO with alternate means of nutrition /hydration. Given anticipated long-term need for dysphagia recovery, pt and medical team may consider PEG tube. Recommend pt continue to partake in conservative SOLAR DESIGN ENGINEER PO trials of ice chips and ?? tsp water with cued multiple swallows and cough after swallow. Also recommend pt continue with free ice chip protocol of 5 ice chips per hour after thorough oral care. Recommend repeat VFSS in ~2-4 weeks to determine improvements in airway protection and efficiency of pharyngeal clearance. Pt noted to have silent aspiration with thin, mildly thick, and moderately thick liquids. Per chart review, pt was on puree/thin liquid diet this admission then made NPO with concerns of aspiration PNA. Now pt advanced to clear liquid diet by medical team for comfort/pleasure and with hopes to help improve AMS/delirium with normal meal times. SOLAR DESIGN ENGINEER consult placed to help problem solve dysphagia and PO nutrition. Teamed with Patricia Holden MD with primary team. Reviewed hx dysphagia per prior SOLAR DESIGN ENGINEER notes and that is probable that pt is still aspirating with PO. Given nature of aspirationhas been silent in past, clinical bedside swallow evaluation would have little utility and not be areliable assessment requiring instrumental swallow assessment. As this is a chronic dysphagia and pt has stable route for nutrition, SOLAR DESIGN ENGINEER will be unable to complete repeat VFSS/FEES this date. Option remains to complete instrumental reassessment as census allows (anticipated next week) and pt remains appropriate. If pt were to d/c prior to SOLAR DESIGN ENGINEER eval, assessment can be completed as OP. SOLAR DESIGN ENGINEER to follow. Nedra Rader MS CCC-SOLAR DESIGN ENGINEER Speech Language Pathologist Pager # [phone] 06/03/25 1:47 PM * Amaya Goetz MD - 2025 9:51 PM EDT Images from the original note were not included. [facility] Division of Pulmonary, Critical Care & Sleep Medicine MICU CONSULT / ICU TRIAGE NOTE Date of Service: 2025 Patient: Carter Raymundo : 1955 Reason for Evaluation: Respiratory status and Mental status Brief Evaluation Summary: Patient is an 69M hx Schizoaffective disorder c/b drug-induced parkinsonism, HTN p/w L facial droopwith negative stroke workup c/f psychiatric decompensation awaiting psych bed. C/c/b COVID infection (positive on 05/24), MICU consulted for concern for acute AMS and increasing O2 requirements. Patient triggered on floor for acute change in MS and increasing oxygen requirements up to 10 L on face tent. Per chart history, patient is normally conversational although with limited meaningful participation. Mental status and hypoxia has also been waxing and waning throughout hospitalization. Has had increasing oral secretions and new LLL opacity. Has been on remdesivir for COVID positivity 05/24. On bedside evaluation, patient was awake with eyes open and coughing mucus with RN suctioning, not tracking or following commands. Withdrawing to pain and appears to be protecting airway. Was satting 99% with face tent. Per overnight primary team, was obtunded prior to my arrival but has since improved with mental status and O2 saturation after coughing. MEDICATIONS Current Scheduled Medications: Scheduled Medications[1] Continuous Medications / Infusions: Infusions Meds[2] PRN Meds: PRN Medications[3] OBJECTIVE DATA Current Vitals: Temp: 99.2 ??F (37.3 ??C) Heart Rate: (!) 133 BP: 135/78 MAP (mmHg): 97 Resp: 19 SpO2: 99 % Intake and Output: I/O (Last 24 hours) at 05/27/20251 Last data filed at 2025 1255 Intake -- Output 600 ml Net -600 ml Physical Exam General appearance - awake, eyes open, chronically ill appearing, not answering questions, not following commands, withdrawing to pain Chest - rales noted B/l, rhonchi noted B/; Heart - normal rate, regular rhythm, normal S1, S2, no murmurs, rubs, clicks or gallops, not examined Abdomen - soft, nontender, nondistended, no masses or organomegaly Extremities - peripheral pulses normal, no pedal edema, no clubbing or cyanosis, not examined Labs, Imaging & Other Studies: All labs, imaging, and diagnostic studies were personally reviewed and can be found in the online medical record. Select results below Laboratory: All recent labs have been personally reviewed. Pertinent labs include: Lab Results Component Value Date WBC 13.35 (H) 2025 HGB 12.8 (L) 2025 HCT 40.6 2025 MCV 96 2025 PLT 328 2025 Lab Results Component Value Date GLUCOSE 168 (H) 2025 NA 145 2025 K 4.0 2025 CO2 27 2025 CL 106 2025 BUN 36 (H) 2025 CREATININE 0.90 2025 Lab Results Component Value Date PROT 6.5 2025 ALB 2.9 (L) 2025 BILITOT 0.2 2025 BILIDIR <0.1 2025 ALKPHOS 125 2025 AST 15 2025 GLOB 3.6 2025 ALT 8 2025 Blood Gases: No results found for: PHARTL , QCC8HAY , PO2ART , [id number] Microbiology: Results for orders placed or performed during the hospital encounter of 04/15/25 Culture, Blood Collection Time: 05/24/25 6:58 PM Specimen: Peripheral; Blood Result Value Ref Range Culture No Growth to date ASSESSMENT AND PLAN Will patient be transferred to ICU at this time? No Patient with previous similar presentations of AMS, tachycardia and hypoxia, now with similar acutepresentation. Considering mucus plugging iso COVID infx given immediate improvement in oxygenation and mental status after coughing/clearing airway vs. Less likely PE vs. Stroke. Appears to be awake and protecting airway at this time, with improvement in SpO2. If patient will not be transferred to ICU at this time: Recommendations for further management on the floor: STAT VBG, CXR, EKG, Duonebs q4H standing, CTA chest for PE +/- NCHCT, agree with vanc/cefe Interval evaluation will be performed via (check all that apply): Primary team to update ICU team with clinical changes Assessment and recommendations communicated with primary team: In person and Via phone call ICU attending notified of, and involved in, assessment and recommendations as denoted above. Signed by: Amaya Goetz MD [1] acetaminophen, 1,000 mg, G-tube, Q8H CLAUDIA atorvaSTATin, 20 mg, G-tube, QHS benzonatate, 100 mg, Oral, TID [Held by provider] buPROPion, 100 mg, G-tube, TID carbidopa-levodopa, 0.5 tablet, G-tube, TID [START ON 05/28/2025] cefepime, 2 g, Intravenous, Q12H cloZAPine, 150 mg, G-tube, QHS cloZAPine, 25 mg, G-tube, Daily [START ON 05/28/2025] divalproex, 250 mg, Oral, QAM And divalproex, 500 mg, Oral, QPM enoxaparin, 40 mg, Subcutaneous, Q24H CLAUDIA famotidine, 20 mg, G-tube, BID gabapentin, 100 mg, G-tube, QAM gabapentin, 300 mg, G-tube, QHS guaiFENesin ER, 600 mg, Oral, BID haloperidoL, 1 mg, G-tube, BID haloperidol lactate, 2 mg, Intramuscular, Once insulin regular, 0-12 Units, Subcutaneous, Q6H CLAUDIA ipratropium-albuteroL, 3 mL, Nebulization, Q6H CLAUDIA lactated ringers, 500 mL, Intravenous, Once lactulose, 20 g, G-tube, TID lidocaine, 1 patch, Topical, Q24H lidocaine, 1 patch, Topical, Q24H magnesium citrate, 74 mL, G-tube, Daily multivitamin with minerals, 15 mL, G-tube, Daily sodium chloride, 3 mL, Intravenous, Q12H CLAUDIA polyethylene glycol, 17 g, G-tube, BID ramelteon, 8 mg, G-tube, QHS remdesivir, 100 mg, Intravenous, Q24H sennosides, 17.6 mg, G-tube, BID tamsulosin, 0.4 mg, G-tube, QHS traZODone, 150 mg, G-tube, Nightly vancomycin, 1,000 mg, Intravenous, Q12H vancomycin per pharmacy protocol, 1 each, Miscellaneous, See Admin Instructions [2] [3] bisacodyl, 10 mg, Daily PRN calcium carbonate, 1,000 mg, TID PRN dextrose oral gel, 15 g, Q15 Min PRN OR dextrose 50%, 12.5 g, PRN OR dextrose 50%, 25 g, PRN OR glucagon (human recombinant), 1 mg, PRN iohexoL, 20 mL, Once in imaging Insert and Maintain Peripheral IV, , Continuous AND sodium chloride, 3 mL, Q12H CLAUDIA AND sodium chloride, 3 mL, Q1 Min PRN Cosigned by Gavin Lozada MD at 05/28/2025 2:28 AM EDT Associated attestation - Gavin Enriquez MD - 05/28/2025 2:28 AM EDT Agree with plan in place. Happy to take patient to ICU should he further worsen. Gavin Lozada MD [facility] Pulmonary and Critical Care * Kimi Correa MD - 05/11/2025 11:14 PM EDTAssociated Order(s): IP CONSULT TO INTERVENTIONAL RADIOLOGY Interventional Radiology Inpatient Consult 05/11/25 REASON FOR CONSULT: Dislodged g-tube HPI: Carter Raymundo (BID #: [id number]) is a 69 y.o. male with schizoaffective disorder, drug-inducedparkinsonism, with intermittent episodes of agitation that has unfortunately led to the dislodgement of his g-tube. G-tube was initially placed 12/2024 by surgery at [facility], was last rescued via bedside exchange by IR on 04/19/25 for similar indication with placement of an 18Fr Entuit g-tube. Currently nothing in tract. Primary team unable to advance a 14Fr Maharaj to maintain tract patency due to smallstoma, and are in the process of attempting 10 and 12Fr Foleys. CODE STATUS: Full NPO: Ensure NPO at midnight PRECAUTIONS: No active infections No active isolations PRIOR IR PROCEDURES: 04/19/25 - G-tube rescue MEDICATIONS: Current Medications[1] ALLERGIES: Allergies[2] FOCUSED PHYSICAL EXAM: Vitals: 05/11/25 1156 BP: (!) 149/88 Pulse: (!) 93 Resp: 18 Temp: 98.5 ??F (36.9 ??C) SpO2: 98% Patient not seen. LABS: Results from last 7 days Lab Units 05/09/25 0724 WBC K/uL 11.73* HEMOGLOBIN g/dL 11.9* HEMATOCRIT % 36.1* PLATELETS K/uL 262 IMAGING FINDINGS: No recent imaging. ASSESSMENT AND PLAN: Carter Raymundo is a 69 y.o. male with schizoaffective disorder, drug-induced parkinsonism, admitted with altered mental status and intermittent episodes of agitation, now with a dislodged g-tube (18fr entuit). Recommendations: - Please place Maharaj catheter in tract to maintain patency. - Plan for g-tube replacement by IR tomorrow pending scheduling availability - Please make NPO at midnight in case patient requires moderate sedation. These findings and recommendations were made after discussion with the attending, Dr Matt Ibanez, who agrees with the plan of care as above. Thank you for involving us in the care of this patient.Please feel free to contact us if you have any questions or concerns. Kimi Correa MD [1] Current Facility-Administered Medications Medication Dose Route Frequency Provider Last Rate Last Admin acetaminophen (TYLENOL) tablet 650 mg 650 mg Oral Q6H PRN Karrie Starks MD 650 mg at 05/05/25 0042 atorvaSTATin (LIPITOR) tablet 20 mg 20 mg G-tube QHS Juliet Becerra MD 20 mg at 05/10/252030 bisacodyl (DULCOLAX) suppository 10 mg 10 mg Rectal Daily PRN Noe Ruiz MD 10 mg at 05/02/252042 [Held by provider] buPROPion (WELLBUTRIN) tablet 100 mg 100 mg G-tube TID Peña Salas MD 100 mg at 05/10/252031 calcium carbonate (TUMS) chewable tablet 1,000 mg 1,000 mg Oral TID PRN Noe Ruiz MD carbidopa-levodopa (SINEMET) 25-100 mg per tablet 2 tablet 2 tablet G-tube TID Peña Salas MD 2 tablet at 05/10/252031 cloZAPine (CLOZARIL) tablet 125 mg 125 mg G-tube QHS Karrie Starks MD cloZAPine (CLOZARIL) tablet 25 mg 25 mg G-tube Daily Karrie Starks MD 25 mg at 05/10/25827 enoxaparin (LOVENOX) injection 40 mg 40 mg Subcutaneous Q24H [facility] Juliet Becerra MD 40 mg at famotidine (PEPCID) tablet 20 mg 20 mg G-tube BID Juliet Becerra MD 20 mg at 05/10/252032 gabapentin (NEURONTIN) capsule 100 mg 100 mg G-tube BID Juliet Becerra MD 100 mg at 05/10/25 152 gabapentin (NEURONTIN) capsule 300 mg 300 mg G-tube QHS Juliet Becerra MD 300 mg at 05/10/252032 guaiFENesin (ROBITUSSIN) 100 mg/5 mL syrup 200 mg 200 mg G-tube Q4H PRN Noe Ruiz MD 200 mg at 04/29/25 0310 lactulose (ENULOSE) 10 gram/15 mL solution 20 g 20 g Oral BID Noe Ruiz MD 20 g at 05/10/252032 lidocaine 4 % patch 1 patch 1 patch Topical Q24H Karrie Starks MD 1 patch at 05/04/25 1120 [Held by provider] LORazepam (ATIVAN) injection 0.5 mg 0.5 mg Intramuscular Q4H PRN Letha Hammond MD 0.5 mg at 05/11/251 magnesium citrate solution 296 mL 296 mL Oral Once Karrie Starks MD multivitamin with minerals oral liquid 15 mL 15 mL Oral Daily Juliet Becerra MD 15 mL at 05/10/25 0827 peripheral line: sodium chloride (NS) 0.9% flush 3 mL Intravenous Q12H CLAUDIA Peña Salas MD 3 mLat 05/06/25 2227 And peripheral line: sodium chloride 0.9 % (NS) flush 3 mL Intravenous Q1 Min PRN Peña Salas MD polyethylene glycol (MIRALAX) packet 17 g 17 g Oral BID Karrie Starks MD 17 g at 05/06/25 0808 QUEtiapine (SEROquel) tablet 50 mg 50 mg Oral TID PRN Juliet Becerra MD 50 mg at 05/10/252227 ramelteon (ROZEREM) tablet 8 mg 8 mg Oral QHS Juliet Becerra MD 8 mg at 05/10/252033 sennosides oral syrup 17.6 mg 17.6 mg G-tube BID Juliet Becerra MD 17.6 mg at 05/09/252058 tamsulosin (FLOMAX) 24 hr capsule 0.4 mg 0.4 mg G-tube QHS Juliet Becerra MD 0.4 mg at 05/10/252033 traZODone (DESYREL) tablet 150 mg 150 mg G-tube Nightly Juliet Becerra MD 150 mg at 05/10/252033 [2] Allergies Allergen Reactions Morphine Itching Cosigned by Matt Ibanez MD at 05/15/2025 4:03 PM EDT * Nataliya Gutierres NP - 04/19/2025 2:57 PM EDT Brief history: 69M schizoaffective disorder, and drug-induced parkinsonism, who presents with unresponsiveness, asphaia, and possible left facial droop. Patient has gastrostomy tube placed by surgery in [facility] in December of this year. Patient pulled his tube, IR consulted to replace. TECHNIQUE: OPERATORS: Nataliya Gutierres NP, Janes Joshi MD (attending was immediately available) ANESTHESIA: Lidocaine jelly PROCEDURE: 1. Rescue of a gastrostomy tube. PROCEDURE DETAILS: Following the discussion of the risks, benefits and alternatives to the procedure, written informedconsent was obtained from healthcare proxy.The procedure was performed bedside supine. A pre-procedure time-out was performed per [facility] protocol. The upper abdomen and tube site was prepped and draped in the usual sterile fashion. A new 18 Fr Entuit gastrostomy tube was into the stomach and the balloon was inflated using sterilewater. Patient tolerated the procedure well and there were no immediate post-procedure complications. Specimens removed: None Estimated blood loss (mL): none Complications: No immediate complications IMPRESSION: Successful bedside exchange of a 18 Fr Entuit gastrostomy tube. Tube is ready to use. PLAN: Please obtain tube study to confirm placement of gastrostomy tube. After confirming the tube can beused immediately. Routine exchange in 6 months Cosigned by Janes Joshi MD at 04/20/2025 8:00 AM EDT Associated attestation - Janes Joshi MD - 04/20/2025 8:00 AM EDT I have reviewed the note by Nataliya Gutierres NP and agree with the findings. Signed: Janes Joshi MD [facility] 04/20/25 * Dave Qiu MD PhD - 04/19/2025 2:10 PM EDTAssociated Order(s): IP CONSULT TO GENERAL SURGERY Date: 04/19/2025 Admit date: 04/15/2025 Patient: Carter Raymundo Date of : 1955 Code Status: Full Code Reason for consult: fallen G-tube HPI: Carter Raymundo is a 69 y.o. male hx of schizoaffective, HTN, CKD, drug-induced parkinsonism, chronic aspiration, s/p PEG 02/13 ([facility]) p/w c/f stroke 04/15, now with dislodged PEG Pt had been admitted 04/15 for ongoing c/f repeat stroke after p/w aphagia and L sided facial droop.He has since undergone work up that is consistent with delirium after negative CT, MRI and TME. This AM, he pulled out his PEG that had been initially paced given his dysphagia and c/f chronic aspirations. We are engaged for replacement ROS: Unable to elicit, although patient is cooperative on encounter PAST MEDICAL HISTORY Past Medical History[1] PAST SURGICAL HISTORY Past Surgical History[2] SOCIAL HISTORY Social History[3] FAMILY HISTORY Family History[4] ALLERGIES Allergies[5] MEDICATIONS Scheduled Meds:Scheduled Medications[6] Continuous Infusions:Infusions Meds[7] PRN Meds:.PRN Medications[8] PHYSICAL EXAM Vitals: BP (!) 158/97 (BP Location: Right arm, Patient Position: Lying) Pulse (!) 114 Temp 98.3??F (36.8 ??C) (Oral) Resp 18 Ht 1.803 m (5' 11 ) Wt 75.8 kg (167 lb 1.7 oz) SpO2 97% BMI23.31 kg/m?? Temp: [98.3 ??F (36.8 ??C)-99 ??F (37.2 ??C)] 98.3 ??F (36.8 ??C) Heart Rate: [100-115] 114 Resp: [16-18] 18 BP: (132-158)/(83-97) 158/97 SpO2: [96 %-100 %] 97 % General: cooperative, delirious, no distress CV: regular rate and rhythm Resp: no increased work of breathing Abd: soft, nontender, nondistended. PEG tract seen with insertion site having no signs of infectionor erythema Incision: clean, dry, healing Extremities: warm, well perfused TLDs: PIV I/Os: Intake/Output Summary (Last 24 hours) at 04/19/20252020 Last data filed at 04/19/2025 0700 Gross per 24 hour Intake 853 ml Output 750 ml Net 103 ml No intake/output data recorded. LABS CBC 9.06 \ 12.5 / 252 / 36.6 \ 04/19 0610 BMP 140 104 33 / 142 3.4 26 1.10 \ 04/19 0610 Chem3: Ca:9.1 M.0 PO4:2.9 LFTs: AST: 19 ALT:<5 T-Bili: - D-Bili:- Alk Phos: 182 Albumin: 3.9 Coag: IMAGING IR G Tube Rescue Result Date: 04/19/2025 Successful bedside exchange of a 18 Fr Entuit gastrostomy tube. Tube is ready to use. PLAN: Please obtain tube study to confirm position Routine exchange in 6 months I attest that I supervised the procedure and was immediately available. XR Chest 2 VW Result Date: 04/16/2025 Streaky right lower lobe opacity could reflect atelectasis with infection difficult to exclude in the correct clinical context. Kaylin Goetz MD, electronically signed on Apr 16 2025 05:11PM MRI Brain Without Contrast Result Date: 04/16/2025 No acute intracranial abnormality. Specifically, no acute or recent infarction. WET READ: WET READ:~No acute intracranial abnormality. Angel Luis Tompkins [phone] [id number]. BY ELECTRONICALLY SIGNING THIS REPORT, I THE ATTENDING PHYSICIAN ATTEST THAT I HAVE REVIEWED THE IMAGES FOR THE ABOVE PROCEDURE(S) AND AGREE WITH THE FINDINGS DOCUMENTED. MD Deny Riley MD, electronically signed onApr 16 2025 11:44AM CT Angiogram Head Neck Code Stroke : Arteriogram Result Date: 04/16/[address]: 1. No acute intracranial pathology. CTA HEAD/NECK: 1. Marked vertebral body osteophytosis at C5 results in moderate focal stenosis of the right vertebral artery. 2. Otherwise, no large vessel occlusion, flow-limiting stenosis, aneurysm or vascular malformation. 3. Status post C2-C5 ACDF. Pe rsistent moderate multilevel degenerative change throughout the visualized spine. WET READ: WET READ:~This is a wet read. ~~Noncontrast CT head: no evidence of acute large vascular territory infarction or hemorrhage. ~~Patent [place] without evidence of substantial stenosis or occlusion.~~Patent bilateral cervical carotid and vertebral arteries without evidence of stenosis >70% by NASCET criteria, occlusion, or dissection .~~Full read pending by neuroradiology. ~ Valentin Mena [phone] [id number]: BY ELECTRONICALLY SIGNING THIS REPORT, I THE ATTENDING PHYSICIAN ATTEST THAT I HAVE REVIEWED THE IMAGES FOR THE ABOVE PROCEDURE(S) AND AGREE WITH THE FINDINGS DOCUMENTED. Red Pavon MD, electronically signed on Apr 16 2025 10:13AM XR Chest 2 VW Result Date: 04/15/2025 Cardiac and mediastinal silhouettes are within normal limits. In the retrocardiac region of the left lower lobe, there is some patchy opacity on the frontal view, presumed to be consolidation. Difficult to evaluate for correlate on the lateral view as there appears to be substantial overlying soft tissue artifact along the posterior chest, which is extrinsic to the lungs. Repeat lateral radiographs may be useful, after removing these overlying structures. Casper Serrano MD, electronically signed onApr 15 2025 09:35PM ASSESSMENT Carter Raymundo is a 69 y.o. male hx of schizoaffective, HTN, CKD, drug-induced parkinsonism, chronic aspiration, s/p PEG 02/13 ([facility]) p/w c/f stroke 04/15, now with dislodged PEG PLAN [] Given no c/f peritonitis on abdominal exam, defer to IR for replacement and consequent fluorescent confirmation [] ACS will sign off Complexity Bundle Chronic Kidney Disease, Stage IIIa: Labs repeated - Baseline GFR calculated as 58.5 These plans were developed in collaboration with the chief resident and/or attending surgeon, however they are not final until signed by the attending surgeon. Dave Qiu MD PhD General Surgery Resident Pager: [phone] Dictation software may have been used in writing parts of this note; please ignore any missed grammatical errors [1] Past Medical History: Diagnosis Date Anxiety Coronary artery disease 09/2015 Status post cardiac catheterization with decreased flow in RCA as well as left circumflex artery. No intervention. 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 Tobacco Use Smoking status: Former Current packs/day: 0.00 Types: Cigarettes Quit date: 09/30/1985 Years since quittin.5 Smokeless tobacco: Never Substance and Sexual Activity Alcohol use: No Drug use: No [4] Family History Problem Relation Name Age of Onset Dementia Mother Dementia Father [5] Allergies Allergen Reactions Morphine Itching [6] atorvaSTATin, 20 mg, G-tube, QHS buPROPion, 100 mg, G-tube, TID carbidopa-levodopa, 2 tablet, G-tube, TID cloZAPine, 125 mg, G-tube, QHS cloZAPine, 25 mg, G-tube, Daily enoxaparin, 40 mg, Subcutaneous, Q24H CLAUDIA famotidine, 20 mg, G-tube, BID gabapentin, 100 mg, G-tube, BID gabapentin, 300 mg, G-tube, QHS multivitamin with minerals tablet, 1 tablet, Oral, Daily sodium chloride, 3 mL, Intravenous, Q12H CLAUDIA potassium chloride ER, 60 mEq, Oral, Once ramelteon, 8 mg, Oral, QHS sennosides, 17.6 mg, G-tube, BID tamsulosin, 0.4 mg, G-tube, QHS traZODone, 150 mg, G-tube, QHS [7] [8] calcium carbonate hydrOXYzine HCL Insert and Maintain Peripheral IV AND sodium chloride AND sodium chloride QUEtiapine traZODone Cosigned by Kymberly Couch MD at 04/19/2025 8:53 PM EDT Associated attestation - Kymberly Couch MD - 04/19/2025 8:53 PM EDT I saw and examined this patient. I agree with the findings in the resident's note and plans. Past medical history, laboratory data, and imaging were all reviewed. PEG placed in January of this year accidentally removed. Replaced by radiology. Benign abdominal exam. Kymberly Couch MD * Agustina Garcia LCSW - 04/17/2025 2:46 PM EDTAssociated Order(s): IP CONSULT TO SOCIAL WORK SOCIAL WORK CONSULT NOTE SW consulted for coping support relating to presenting illness. SW meets pt at bedside and introduces self and role. Pt politely declines speaking with SW. SW explains availability and pt may request SW. Please page with questions or concerns. Agustina Garcia LCSW [id number] * Nicole Ramirez - 04/17/2025 9:39 AM EDTAssociated Order(s): NURSING CONSULT TO DIETITIAN; IP CONSULT TO NUTRITION SERVICES NUTRITION INITIAL NOTE SUBJECTIVE: Lying in bed, reports eating is going poorly at [facility] & continues to lose weight. Reports getting tube feeds intermittently & sometimes takes puree POs. Endorses a UBW of 170 lbs months ago & a current weight of 153 lbs. Per phone-call discussion w/ RN at [facility], RNconfirms home tube feed regimen below, runs from 1pm to 9am, held during the day for PT/time off ofpump & consumes 100% of puree breakfast and lunch. RN confirms recent weight of 156 lbs via sitting scale. OBJECTIVE: Height: 71 in Admit weight: 97.3 kg (bed, 04/16) Current weight: No updated weights BMI: 21.8 kg/m2 IBW: 78 kg % IBW: 91% Adjusted Body Weight: N/A Usual Body Weight: 70.9 kg (sitting scale; 04/13/25) - per [facility] *anthros 88.1 kg ([facility]; 01/20/23) 97.5 kg ([facility]; 04/22/19) Admission Dx: Aspiration into airway, sequela [T17.908S] Altered mental status, unspecified altered mental status type [R41.82] PMHx: GERD, BPH, CKD, HTN, CAD, drug-induced Parkinsonism, schizoaffective disorder. Pertinent Meds: famotidine, lorazepam, senna. Others noted. Recent Labs 04/17/25 0740 NA 143 K 4.0 CL 107 CO2 25 BUN 27* CREATININE 1.10 GLUCOSE 86 CALCIUM 9.2 MG 2.1 PHOS 3.8 Recent Labs 04/15/25 1815 POCGLU 110* Recent Labs 04/15/25 1817 ALT <5 AST 19 ALKPHOS 182* BILITOT 0.4 Food Allergies: NKFA Diet Order: Pureed diet, thin liquids Home tube feed regimen ([facility] TwoCal HN @ 50 mL/hr x20 hrs (run from 1pm to 9am) (provides: 2000 kcals, 84g protein, & 700 mL free water). +350 mL free water flushes q6h (+1400 mL). Total free water: 2100 mL total H2o/day. Access Type: PIV x1, PEG GI/Abdomen: Abdomen soft, non-tender, non-distended per flowsheets. LBM 04/15/25. Skin: contact dermatitis to sacrum per wound care eval (04/17/25), no pressure injuries noted. Drains: None. Extremities: No LE edema noted. Nutrition Focused Physical Exam: Deferred per patient. ASSESSMENT: [x] At Risk for Malnutrition As evidenced by: AMS. Dysphagia requiring tube feeds. Estimated Nutrition Needs: Calories: 9336-8290 kcal (25-30 kcal/kg) Protein: 85-106 g (1.2-1.5 g/kg) Fluids: 5385-7192 mL (25-30 mL/kg) Estimated Needs Calculated Usin.9 kg (156 lb 4.9 oz) (adjusted weight) Estimation of previous intake: Adequate Estimation of current intake: Adequate Specifics: 69M w/ PMHx significant for HTN, CKD, schizoaffective disorder, and drug-induced parkinsonism. Presented to [facility] on 04/15/25 w/ unresponsiveness, asphasia, & possible left facial droop. W/ AMS & concern for catatonia, also w/ transient hypoxia w/ concern for aspiration pneumonitis. Nutrition consulted for tube feed recommendations. Per discussion w/ RN at [facility], confirmed tube feed regimen noted above, OK to initiate home regimen in house at goal rate. Of note, patient intermittently takes pureed POs (breakfast/lunch) w/ PT/assistance - recommend continuing pureed breakfast/lunch supervised meals. Tube feeds alone provide 100% of nutritional needs while patient working on ad vancing POs at rehab. Appreciate rn case mgr of POs + tube feeds. Noted major discrepancy between BI admit weight & reported weight at rehab, recommend re-obtaining zeroed bed-scale weight or getting standing weight to confirm, suspect bed-scale weight falsely elevated iso inaccuracies of scale method. Lytes reviewed. Nutrition to follow. Interventions / Recommendations: Continue pureed diet as ordered, encourage POs as tolerated. Recommend supervision during meals. Appreciate documentation of POs. Order meals for patient. Start tube feeds per home orders: TwoCal HN @ 50 mL/hr x20 hrs (run from 1pm to 9am) (provides: 2000 kcals, 84g protein, & 700 mL free water). +350 mL free water flushes q6h (+1400 mL). Total free water: 2100 mL total H2o/day. Monitor lytes, address PRN. Micronutrients: Check vitamin D w/ same-day CRP. Add multivitamin w/ minerals. Monitor I's/O's, GI function, & BMs daily. Obtain new weight to interpret. Nutrition to continue to follow, please message or page [phone] with any questions/concerns Signed by: Nicole Ramirez, MS, RD, LDN 04/17/25 1:13 PM * Laila Skelton RN - 04/17/2025 8:51 AM EDTAssociated Order(s): WOUND CONSULT Images from the original note were not included. Wound Care Consult Date of Service: 04/17/2025 Patient: Carter Raymundo : 1955 CSN: [id number] Location: [facility] fa9 med Room/Bed: 4S/4-2 Admit Date: 04/15/2025 Admission Diagnosis: Principal Problem: Aspiration pneumonitis (HCC) Active Problems: Catatonia Aspiration into airway, sequela Reason for Consult: Incontinence/Severe Perineal Dermatitis History: Past Medical History[1] Allergies: Allergies[2] Nutrition: Active Orders Diet Diet Modified Texture; Pureed; Thin Liquids; Deliver To Nursing, Finger Foods/No Utensils, No Sharps, Safety Tray Frequency: Effective Now Number of Occurrences: Until Specified Pertinent Labs: WBC 9.29 Hct 36.3 Glu 86 Plt 229 Emmanuel Score: Emmanuel Scale Score: 15 Subscale risk factors placing patient at increase pressure injury risk from intense or prolonged pressure: Sensory Perception No Activity Yes Mobility Yes *Redistribution of pressure is the focus for the risk factors above. Subscale risk factors placing patient at increase pressure injury risk by decreasing tissue tolerance: Moisture No Friction and Shear Yes Nutrition No *Skin protection, positioning, and optimal nutrition is the focus for risk factors above. Risk Factors: Pre admission factors contributing to impaired skin integrity include: Dysphagia Schizoaffective disorder Drug-induced parkinsons CKD CAD HTN BPH Recurrent aspiration Hospital Conditions Contributing to Impaired Skin Integrity: AMS Limited mobility General Summary: Patient received on [place] 9, agreeable to assessment. Patient denies pain to backside, able to turn side to side with minimal assistance. Patient reports that he is able to get up to go to bathroom using a walker if needed but prefers using a wheelchair. Patient able to lift bilateral legs independently. Bilateral heels are intact with blanchable redness, offloaded using pillows. Wound Assessment: Location: Sacrococcygeal Present on Admission Yes Pressure Injury No Type/Etiology: Area with blanchable redness, no open wounds noted. Skin with superficial irritation. Etiology is likely irritant contact dermatitis with friction component. 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 Assessments 04/17/2025 8:00 AM Assessment Completed By Inpatient Wound Nurse Wound Image Wound Bed Site Assessment Intact;Dry;Other (Comment) Structure Exposed None (limited to skin breakdown) Margins Distinct Foul Odor No Lakesha-Wound Assessment Intact;Dry;Fragile Treatments Barrier cream Wound Closure Open to air Cover Dressings Open to air Dressing Action Changed Dressing Complexity Routine Dressing Status Clean;Dry;Intact Active Orders Date Order Priority Status Authorizing Provider 04/16/252000 Wound nurse consult Routine Active Chuy Hernandez MD - Reason for consult:: Pressure injury - Location of wound?: Sacrum Urine management recommendation from wound care perspective: Use an external urinary catheter to reduce/prevent wound contamination and facilitate wound healing Goals of wound care: Topical therapy Wound Plan/Recommendations: Pressure relief per pressure injury guidelines Support surface: Standard If patient is on a SW alternate support surface, please check bed setting each shift. Should be on alternate. -Do not use a fitted sheet if patient in on a SW Alternate support surface -Turn and reposition every 1-2 hours and as needed to offload affected area. -To prevent friction/shearing injuries, use ceiling lift to reposition. No boosting. Avoid shearinginjuries over the coccyx area, never boost patient in bed, use ceiling lift. -Heels off bed surface at all times so that heel(s) are free floating and not touching the bed surface Float Heels On Pillows -If OOB, limit sit time to one hour at a time and Sit on a pressure redistribution cushion- Standard Air -Elevate LE's while sitting. -Moisturize B/L LE's and feet, intact skin only with Moisturizer (Dark purple top) BID. Wound Care Recommendations: Sacrococcygeal -Commercial wound cleanser or normal saline to cleanse wounds. -Pat the tissue dry with dry gauze. -Apply Crit[place] Barrier Ointment (PINK top) to affected area in a thin layer -Apply Twice Daily Is patient in agreement with the wound care plan? Discussed with Nurse -Notify MD or wound care nurse if wound or skin deteriorates. -Discharge Planning: TBD Wound care will Sign Off Signed by: Laila Skelton RN BSN CWOCN [1] Past Medical History: Diagnosis Date Anxiety Coronary artery disease 09/2015 Status post cardiac catheterization with decreased flow in RCA as well as left circumflex artery. No intervention. Erectile dysfunction Gout Hyperlipidemia Schizoaffective disorder (HCC) [2] Allergies Allergen Reactions Morphine Itching * Kymberly Mata MD - 04/16/2025 10:36 AM EDT [facility] PSYCHIATRIC CONSULTATION - INITIAL NOTE I performed a history and exam of the patient and reviewed the note of Dr. Latisha Singh on 04/15/25. Please refer to this note for detailed history, exam and recommendations. I agree with the findings and plan as documented in the resident's note with the following addendum: Briefly, we were asked to perform a psychiatric evaluation/provide management recommendations for this 69 y.o. M with h/o schizoaffective disorder,prior psychiatric admissions (most recently one year ago for SI, remotely for psychosis with poor self-care), no h/o SA/SIB, medical h/o CAD, gout, hyperlipidemia, HTN, CKD, oropharyngeal dysphagia c/b frequent aspiration now s/p PEG, drug-induced parkinsonism who is sent from SNF for an episode ofunresponsiveness, aphasia and question of facial droop. He had declined all medications that morning. Evaluation for acute stroke was negative. Psychiatry consulted to evaluate for catatonia vs toxic-metabolic encephalopathy. On psychiatric evaluation overnight, pt was observed lying in the stretcher with eyes closed. He did not respond verbally or follow commands. After receiving lorazepam 1mg, he opened his eyes, responded to commands and was whispering incomprehensibly. Due to concern for catatonia with ongoing inability to care for self, he was placed on section 12 with plan to initiate psychiatric bed search whenmedically stable. He was started on lorazepam 1mg TID. He received another dose this morning at 8am. He also resumed treatment with Sinemet overnight and this morning. On interview this morning, pt is alert and sitting up in bed. He cannot recall recent circumstancesleading to presentation in the ED. He tells me that he has been more stressed recently and experiencing paranoid ideas. When asked about these ideas, he says that he is not up to discussing them right now. He does state that he felt untrusting of rehab and declined to take medications there recently (rehab reports the morning of presentation). He explains that he was afraid they were deleterious to his health. He does feel better here and agreeable to continuing treatment. He denies paranoid thoughts presently. Mood is not too bad and he denies SI. Reports recent increase in clozapineto 150mg qHS. I spoke with patient's brother, Delvin ([phone]). Pt went to [facility] following back surgery @[facility] in January 2025. Around the procedure, his clozapine dose was reduced from 175mg to 125mg. Thedose was never increased back to 175mg following the procedure. The pt developed worsening paranoia, I.e. worried criminals were hacking into his bank account. Last week, Delvin contacted his psychiatrist (Dr. Kayla Corral @[facility], ). Clozapine dose was increased to 25mg qAM + 125mg qHS two days ago. He believes he took the morning dose yesterday but unclear. No prior history of episodes of unresponsiveness or catatonia. Coordinated care with Dr. Corral who confirmed above history. Clozapine dose decreased in January due toconcern for oversedation. Plan was to increase to 150mg yesterday x2d, then increase to 175mg via g-tube. Prior to this change, he had been stable on clozapine for many years. EXAM Temp: [97.6 ??F (36.4 ??C)-98.2 ??F (36.8 ??C)] 97.6 ??F (36.4 ??C) Heart Rate: [59-105] 59 Resp: [15-22] 16 BP: (117-158)/(74-100) 122/79 SpO2: [97 %-100 %] 100 % Sitting up in bed, dressed in hospital attire, mildly disheveled. Mildly guarded. Normal eye contact. No PMR/PMA. Speech is responsive, normal rate, soft-spoken. Mood is not too bad. Affect with restricted range, stable, congruent. TP linear with intact associations. TC denies SI, +paranoia. No ab normal perceptions elicited. He is alert and oriented x3. MOYB intact. 3/3 registration and 2/3 delayed recall (no improvement with MC cue). ELLE, calculations and abstraction intact. Verbal trails incorrect. Insight/judgment reduced/reduced. Gait exam is deferred. He has a resting tremor in RUE. Normal tone in UE b/l. No posturing. No perseveration. No negativism. Negative grasp reflex. DATA: Lab Results Component Value Date GLUCOSE 104 (H) 04/15/2025 CALCIUM 9.8 04/15/2025 NA 142 04/15/2025 K 3.9 04/15/2025 CO2 27 04/15/2025 CL 103 04/15/2025 BUN 25 (H) 04/15/2025 CREATININE 1.10 04/15/2025 Lab Results Component Value Date PROT 6.8 04/15/2025 ALB 3.9 04/15/2025 BILITOT 0.4 04/15/2025 BILIDIR 0.3 10/05/2018 ALKPHOS 182 (H) 04/15/2025 AST 19 04/15/2025 ALT <5 04/15/2025 Lab Results Component Value Date CKTOTAL 50 04/15/2025 Lab Results Component Value Date HSTRPT 83 (H) 04/15/2025 Lab Results Component Value Date WBC 9.11 04/15/2025 HGB 13.2 (L) 04/15/2025 HCT 39.6 (L) 04/15/2025 MCV 95 04/15/2025 PLT 229 04/15/2025 ANC 7070 Lab Results Component Value Date INR 1.1 04/15/2025 Lab Results Component Value Date APTT 42 (H) 04/15/2025 Stox neg Lab Results Component Value Date TSH 1.50 04/15/2025 Lab Results Component Value Date [id number] 11 04/15/2025 Lactic Acid 0.9 Last EKG ECG 12 lead Collection Time: 04/14/24 7:06 PM Result Value Ref Range Ventricular Heart Rate 91 BPM Atrial Heart Rate 91 BPM LA Interval 146 ms QRSD Interval 100 ms QT Interval 390 ms QTC Interval 479 ms P Mathews 43 degrees R Mathews -27 degrees T Wave Mathews 61 degrees Narrative --- Poor data quality, interpretation may be adversely affected Normal sinus rhythm Minimal voltage criteria for LVH, may be normal variant ( R in aVL ) Borderline ECG When compared with ECG of 23-Apr-2022 18:53, No significant change was found *Note: Due to a large number of results and/or encounters for the requested time period, some results have not been displayed. A complete set of results can be found in Results Review. Results for orders placed during the hospital encounter of 04/15/25 CT ANGIOGRAM HEAD NECK CODE STROKE 04/15/2025 04/16/2025 10:13 AM (Final) Status: Normal 04/15/2025 6:40 PM Narrative EXAMINATION: CTA HEAD/NECK STROKE [id number] CT HEAD NECK. INDICATION: 69-year-old male with headache. TECHNIQUE: Contiguous MDCT axial images were obtained through the brain without contrast material. Subsequently, helically acquired rapid axial imaging was performed from the aortic arch through the brain during the intravenous administration of 70 mL of Omnipaque 350 nonionic contrast agent. Three-dimensional reformatted images were generated on a dedicated workstation. This report is based on interpretation of all of these images. DOSE: Acquisition sequence: 1) Sequenced Acquisition 18.0 s, 18.0 cm; CTDIvol = 50.2 mGy (Head) DLP = 903.1 mGy-cm 2) Sequenced Acquisition 1.6 s, 4.0 cm; CTDIvol = 50.2 mGy (Head) DLP = 200.7 mGy-cm 3) Sequenced Acquisition 2.0 s, 2.0 cm; CTDIvol = 50.2 mGy (Head) DLP = 100.3 mGy-cm 4) Stationary Acquisition 4.5 s, 0.5 cm; CTDIvol = 49.0 mGy (Head) DLP = 24.5 mGy-cm 5) Spiral Acquisition 5.7 s, 43.2 cm; CTDIvol = 33.2 mGy (Head) DLP = 1,434.0 mGy-cm Total DLP (Head) = 2,663 mGy-cm. COMPARISON: Head CT dated 15 April 2024 FINDINGS: CT HEAD WITHOUT CONTRAST: There is no evidence of infarction,hemorrhage,edema,ormass effect. The ventricles and sulci are normal in size and configuration for the patient's age. There is mild mucosal thickening in in the paranasal sinuses. Mastoid air cells,and middle ear cavities are clear. The orbits are normal. CTA HEAD: The vessels of the [place] and their principal intracranial branches are patent without stenosis, occlusion, or aneurysm. The major dural venous sinuses are patent. CTA NECK: The visualized thoracic aorta is normal. There is conventional three-vessel configuration of the great vessels. Bilateral carotid and vertebral artery origins are patent. There is no evidence of internal carotid stenosis by NASCET criteria. The carotidandleft vertebral arteries and their major branches are patent without evidence of stenosis or occlusion. At approximately the C5 level, marked vertebral body osteophytosis results in moderate focal stenosis of the right vertebral artery (series 12, images 1-2). The vertebral arteries are codominant. OTHER: Patient is status post C2-C5 ACDF. There is moderate multilevel degenerative change throughout the visualized spine. The visualized portion of the lungs are clear. The thyroid gland appears normal. There is no lymphadenopathy by CT size criteria. Impression HEAD CT: 1. No acute intracranial pathology. CTA HEAD/NECK: 1. Marked vertebral body osteophytosis at C5 results in moderate focal stenosis of the right vertebral artery. 2. Otherwise, no large vessel occlusion, flow-limiting stenosis, aneurysm or vascular malformation. 3. Status post C2-C5 ACDF. Persistent moderate multilevel degenerative change throughout the visualized spine. WET READ: WET READ:~This is a wet read. ~~Noncontrast CT head: no evidence of acute large vascular territory infarction or hemorrhage. ~~Patent [place] without evidence of substantial stenosis or occlusion.~~Patent bilateral cervical carotid and vertebral arteries without evidence of stenosis >70% by NASCET criteria, occlusion, or dissection .~~Full read pending by neuroradiology. ~ Vlaentin Mena [id number]: BY ELECTRONICALLY SIGNING THIS REPORT, I THE ATTENDING PHYSICIAN ATTEST THAT I HAVE REVIEWED THE IMAGES FOR THE ABOVE PROCEDURE(S) AND AGREE WITH THE FINDINGS DOCUMENTED. Red Pavon MD, electronically signed on Apr 16 2025 10:13AM Signed by: Deny Pavon MD on 04/16/2025 10:13 AM CXR Cardiac and mediastinal silhouettes are within normal limits. In the retrocardiac region of theleft lower lobe, there is some patchy opacity on the frontal view, presumed to be consolidation. Difficult to evaluate for correlate on the lateral view as there appears to be substantial overlying soft tissue artifact along the posterior chest, which is extrinsic to the lungs. Repeat lateral radiographs may be useful, after removing these overlying structures. MRI Brain Without Contrast: IMPRESSION: No acute intracranial abnormality. Specifically, no acute or recent infarction. HOME MEDICATIONS (per [facility]): -bupropion 100mg TID -clozapine 150mg QHS (reports 50mg and 75mg prior to stating 150mg) -carvidopa/levodopa 50/ 200mg TID -famotidine 20mg -fludrocortisone 0.1mg daily -gabapentin 100mg BID -hydroxyzine 25mg QID -potassium 1 packet TID -senna 10ml BID -tramadol 75mg QID CURRENT MEDICATIONS: Current Medications[1] DIAGNOSIS: Schizoaffective disorder R/o delirium ASSESSMENT: 69 y/o M with h/o schizoaffective disorder, prior psychiatric admissions, no h/o SA/SIB, medical h/o CAD, gout, hyperlipidemia, HTN, CKD, oropharyngeal dysphagia c/b frequent aspiration now s/p PEG, drug-induced parkinsonism who is sent from SNF for an episode of unresponsiveness, aphasia and question of facial droop. He had reportedly declined all medications that morning. Evaluationfor acute stroke was negative. Psychiatry consulted to evaluate for catatonia vs toxic-metabolic encephalopathy. On evaluation in the ED, pt appeared obtunded, non-verbal and not following commands. He received a 1mg dose of lorazepam and Sinemet was also resumed. On subsequent evaluation, he was more responsive, opening his eyes, responding to some commands, whispering incomprehensibly. This morning, he is fully alert and engaged in interview. He reports paranoid thoughts though is guarded around discussing them. Reports stable mood and denies SI. Expresses reluctance to return to rehab. Does not wish to pursue inpatient psychiatric care for recent worsening of psychosis. Collateral from brother and outpatient psychiatrist notable for worsening paranoia in setting of inadvertent lower dose of clozapine following surgical procedure for stenosis two months prior. The dose was lowered to reduce sedation and maintained on lower dose. Pt previously had been stable for many years. Clozapine increased by 25mg 1-2d ago. Medical evaluation initially unremarkable, then later revealed concernfor PNA. On exam, he presents with linear thought process and intact orientation, attention, fund of knowledge, calculations and abstraction. He has some difficulty with delayed recall and executive function testing. No signs of catatonia appreciated this morning. Clinical impression c/w schizoaffective disorder, with recent worsening of psychosis in setting of reduction in clozapine dose. Etiology of recent episode of unresponsiveness unclear; may be related to encephalopathy from infection, transient catatonia I/s/o holding Sinemet that improved with ativan, oversedation from medication (though unclear when last administered). Head imaging was negative for stroke. Plan for admission to medicine given concern for PNA, transient hypoxia and recent episode of AMS. Would recommend resuming home psychiatric medications, monitoring for level of arousal. We will continue to follow with you. RECOMMENDATIONS: -pt does not meet criteria for section 12 -can discontinue 1:1 observation on the medical floor -discontinue lorazepam -restart clozapine 25mg qD + 125mg qHS -restart bupropion 100mg TID -change hydroxyzine to 25mg qid PRN anxiety -continue Sinemet and other home medications as per primary team -we will continue to follow with you [1] Current Facility-Administered Medications Medication Dose Route Frequency Provider Last Rate Last Admin buPROPion (WELLBUTRIN) tablet 100 mg 100 mg Oral TID Lela Martinez MD carbidopa-levodopa (SINEMET) 25-100 mg per tablet 2 tablet 2 tablet G-tube TID Ricardo Barbour MD cloZAPine (CLOZARIL) tablet 125 mg 125 mg Oral QHS Ricardo Barbour MD cloZAPine (CLOZARIL) tablet 25 mg 25 mg Oral Daily Lela Martinez MD Current Outpatient Medications Medication Sig Dispense Refill atorvaSTATin (LIPITOR) 20 MG tablet TAKE 1 TABLET (20 MG TOTAL) BY MOUTH DAILY. (Patient taking differently: Take 1 tablet (20 mg total) by mouth daily.) 90 tablet 3 buPROPion (WELLBUTRIN) 100 MG tablet Take 1 tablet (100 mg total) by mouth 3 times a day. carbidopa-levodopa (SINEMET) 25-100 mg per tablet 2 tablets by G-tube route 3 times a day. cloZAPine (CLOZARIL) 100 MG tablet 1 tablet (100 mg total) by G-tube route at bedtime. Take with 75mg for total dose of 175 mg at bedtime cloZAPine (CLOZARIL) 25 MG tablet 3 tablets (75 mg total) by G-tube route at bedtime. Take with 100mg for total dose of 175 mg at bedtime docusate sodium (COLACE) 50 mg/5 mL liquid 10 mL (100 mg total) by G-tube route every morning &every evening. famotidine (PEPCID) 20 MG tablet 1 tablet (20 mg total) by G-tube route every morning & every evening. fluoride, sodium, (FLUORIDEX DAILY DEFENSE) 1.1 % Pste Apply 1 Application to teeth at bedtime. fluticasone propionate (FLONASE) 50 mcg/actuation nasal spray 1 spray by Each Nare route daily. gabapentin (NEURONTIN) 100 MG capsule 1 capsule (100 mg total) by G-tube route every morning & every evening. gabapentin (NEURONTIN) 300 MG capsule 1 capsule (300 mg total) by G-tube route at bedtime. hydrOXYzine HCL (ATARAX) 25 MG tablet 1 tablet (25 mg total) by G-tube route 4 times a day. lidocaine (LIDODERM) 5 % patch Place 1 patch on the skin daily. Remove & Discard patch within 12 hours or as directed by potassium, sodium phosphates (PHOS-NAK) 280-160-250 mg PwPk Take 1 packet by mouth 3 times a day before meals. sennosides 8.8 mg/5 mL oral syrup 10 mL (17.6 mg total) by G-tube route every morning & every evening. tamsulosin (FLOMAX) 0.4 mg cap 24 hr capsule 1 capsule (0.4 mg total) by G-tube route at bedtime. traMADoL 25 mg Tab 3 tablets (75 mg total) by G-tube route 4 times a day. traZODone (DESYREL) 150 MG tablet 1 tablet (150 mg total) by G-tube route at bedtime. * Cecily Palafox MD - 04/15/2025 6:14 PM EDTAssociated Order(s): IP ACTIVATE CODE STROKE Images from the original note were not included. NEUROLOGY ISCHEMIC STROKE ADMISSION / CONSULT NOTE Patient Name: Carter Raymundo Date of admission: 04/15/25 Chief Complaint: Aphasia, possible L facial droop Neurology was present at bedside after CODE STROKE activation within 5 minutes. - Last known well: Date 04/15/25 and Time 1615 - Symptoms first detected: Date 04/15/25 and Time 1730 I was present during the CT scan and reviewed the scan with the stroke team (fellow and attending) within 20 minutes of their completion. IV thrombolytic: No, IV thrombolytics were not given because no clear focality on exam Mechanical thrombectomy: No, the patient does not have an LVO NIHSS: Interval: Baseline Date: 04/15/25 Time: 6:54 PM 1a. Level of consciousness 3=responds only with reflex motor or automatic effects or totally unresponsive, flaccid, areflexic 1b. LOC questions 2=Answers neither question correctly 1c. LOC commands 2=Performs neither task correctly 2. Best gaze 0=normal 3. Visual cortez 0=No visual loss 4. Facial palsy 1=Minor paralysis (flattened nasolabial fold, asymmetric on smiling), mild left facial droop 5a. Motor - left arm 3=No effort against gravity, limb falls 5b. Motor - right arm 2=Some effort against gravity, limb cannot get to or maintain (if cured) 90 (or 45) degrees, drifts down to bed, but has some effort against gravity 6a. Motor - left leg 3=No effort against gravity, limb falls 6b. Motor - right leg 3=No effort against gravity, limb falls 7. Limb ataxia 0=Absent 8. Sensory 2=Severe to total sensory loss; patient is not aware of being touched in face, arm, leg 9. Best language 3=Mute, global aphasia; no usable speech or auditory comprehension 10. Dysarthria 2=Severe; patient speech is so slurred as to be unintelligible in the absence of or our of proportion to any dysphagia, or is mute/anarthric 11. Extinction and inattention 2=Profound malena-inattention or malena-inattention to more than one modality. Does not recognize own hand or orients only to one side of space Total score: 28 Premorbid Modified [place] Score: 4 - Moderately severe disability - unable to attend to own bodily needs without assistance and unable to walk unassisted Date: 04/15/25 Time: 6:58 PM Subjective Carter Raymundo is 69 y.o.M w/ HTN, PD, schizoaffective disorder, CKD who presents with aphasia andpossible L facial droop. Carter was found unresponsive at 5:30 PM at his long-term after being at baseline at 4:15 PM. Hewas noted to have facial asymmetry, initially described as a possible left facial droop. He was nottalking or responding. He declined all medications this morning. Past Medical History: Past Surgical History - Hypertension - Parkinsonism - Schizoaffective disorder Home Medications: Social History: Current Outpatient Medications Medication Instructions allopurinoL (ZYLOPRIM) 200 mg, Oral, Daily ARIPiprazole (ABILIFY) 10 mg, Oral, Daily atorvaSTATin (LIPITOR) 20 MG tablet TAKE 1 TABLET (20 MG TOTAL) BY MOUTH DAILY. buPROPion (WELLBUTRIN) 150 mg, Oral, 2 times daily buPROPion (WELLBUTRIN) 75 mg, Oral, At bedtime cloZAPine (CLOZARIL) 100 mg, Oral, At bedtime cloZAPine (CLOZARIL) 50 mg, Oral, Every evening colchicine (COLCRYS) 0.6 mg, Oral, Daily divalproex (DEPAKOTE) 500 mg, Oral, 2 times daily (IBH), Takes 2 tabs (500mg) in the morning and atbedtime divalproex (DEPAKOTE) 250 mg, Oral, Every evening, Takes 1 tab (250mg) in the evening lactobacillus acidophilus & bulgaricus (LACTINEX, FLORANEX) 1 million cell Tab 1 tablet, Oral, 3 times daily oxyBUTYnin (DITROPAN) 5 mg, Oral, At bedtime propranoloL (INDERAL) 60 mg, Oral, Daily Social History[1] Socioeconomic History Marital status: Occupational History 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 Substance and Sexual Activity Alcohol Use No Tobacco Use History[2] Allergies: Family History Morphine Objective Vitals (24h data): Vitals: 04/15/25 1811 BP: (!) 158/100 Pulse: (!) 104 Resp: 16 Temp: 98.2 ??F (36.8 ??C) Physical exam: GENERAL: Well-developed and well nourished, in no acute distress HEENT: NC/AT, mucous membranes moist NECK: Supple PULM: unlabored respirations EXT: Warm and well-perfused without edema SKIN: No rash, lesions on exposed skin NEURO: - Mental status: Awake, not responding to questions or commands. Not clearly regarding. - Cranial nerves: --- II, III, IV, :; PERRL 3 to 2mm and brisk. EOM intact to VOR, no nystagmus. Blinks to threat in all quadrants. --- VII: Possible left facial droop --- XII: Tongue protrudes in midline - Motor: Normal bulk and tone throughout. Right arm more slowly falls to the bed initially but not on re-exam; does not obey commands to maintain extremities AG. All other extremities fall to the bedimmediately. Fine resting tremor in the bilateral hands. - Sensation: No clear withdrawal to noxious stim - Reflexes: 2+ throughout - Coordination: Unable to test - Gait: Deferred Laboratory data, EKG and Imaging: I have reviewed recent imaging studies and labs. Notable for: Recent Results (from the past 24 hours) POCT Glucose Collection Time: 04/15/25 6:15 PM Result Value Ref Range Glucose, POC 110 (H) 70 - 100 mg/dL Comprehensive Metabolic Panel Collection Time: 04/15/25 6:17 PM Result Value Ref Range Sodium 142 135 - 147 mmol/L Potassium 3.9 3.5 - 5.4 mmol/L Chloride 103 96 - 108 mmol/L Total CO2/Bicarbonate 27 22 - 32 mmol/L Anion Gap 12 10 - 18 mmol/L BUN 25 (H) 6 - 20 mg/dL Creatinine, Blood 1.10 0.50 - 1.20 mg/dL Glucose, Blood 104 (H) 70 - 100 mg/dL Calcium 9.8 8.4 - 10.3 mg/dL Total Protein 6.8 6.4 - 8.3 g/dL Albumin, Blood 3.9 3.5 - 5.2 g/dL Globulin Result 2.9 2.0 - 4.0 g/dL AST (SGOT) 19 0 - 40 U/L ALT (SGPT) <5 0 - 40 U/L Alkaline Phosphatase 182 (H) 40 - 130 U/L Total Bilirubin 0.4 0.0 - 1.5 mg/dL Estimated GFR(CKD-EPI) 74 mL/min/BSA Troponin Collection Time: 04/15/25 6:17 PM Result Value Ref Range Troponin T HS 82 (H) <=19 ng/L CBC and Differential Collection Time: 04/15/25 6:17 PM Result Value Ref Range WBC 9.11 4.00 - 10.00 K/uL RBC 4.18 (L) 4.60 - 6.10 M/uL Hemoglobin 13.2 (L) 13.7 - 17.5 g/dL Hematocrit 39.6 (L) 40.0 - 51.0 % MCV 95 82 - 98 fL MCH 31.6 26.0 - 32.0 pg MCHC 33.3 32.0 - 37.0 g/dL RDW 13.9 10.5 - 15.5 % RDW-SD 48.0 (H) 35.1 - 46.3 fL Platelet Count 229 150 - 400 K/uL Nucleated RBC 0 <=0 #/100 WBC Neutrophil 77.6 (H) 34.0 - 71.0 % Lymphocyte 13.5 (L) 19.0 - 53.0 % Monocyte 7.8 5.0 - 13.0 % Eosinophil 0.0 (L) 1.0 - 7.0 % Basophil 0.3 0.0 - 1.0 % Immature Granulocyte (Villard, Myelo, Promyelocyte) 0.8 (H) 0.0 - 0.6 % Absolute Neutrophil Count 7.07 (H) 1.60 - 6.10 K/uL Absolute Lymphocyte Count 1.23 1.20 - 3.70 K/uL Absolute Monocyte Count 0.71 0.20 - 0.80 K/uL Absolute Eosinophil Count 0.00 (L) 0.04 - 0.54 K/uL Absolute Basophil Count 0.03 0.01 - 0.08 K/uL Absolute Immature Granulocyte (Villard, Myelo, Promyelocyte) 0.07 0.00 - 0.09 K/uL ECG 12 lead Collection Time: 04/15/25 6:53 PM Result Value Ref Range Ventricular Heart Rate 98 BPM Atrial Heart Rate 98 BPM LA Interval 156 ms QRSD Interval 108 ms QT Interval 392 ms QTC Interval 500 ms P Mathews 63 degrees R Mathews -23 degrees T Wave Mathews [address]A Head and Neck 04/15/25 WET READ: This is a wet read. Noncontrast CT head: [no evidence of acute large vascular territory infarction or hemorrhage.] Patent [place] without evidence of substantial stenosis or occlusion. Patent bilateral cervical [carotid] and [vertebral] arteries without evidence of [stenosis >70% by NASCET criteria,] [occlusion,][or dissection]. Full read pending by neuroradiology. Assessment Carter Raymundo is 69 y.o. M w/ HTN, PD, schizoaffective disorder, CKD who presents with unresponsiveness, aphasia and possible L facial droop. He missed medication doses this morning. Exam is notable for unresponsiveness and not following commands, therefore limited. There may be possible left facial droop, unclear if new. Otherwise, there is no clear focality on exam (no gaze deviation/preference, no consistent localizing weakness). CT/CTA head and neck does not reveal acute intracranial abnormality. Suspicion for stroke is lower but may have small stroke missed on CT/CTA, so recommend brain MRI. Otherwise, this may be secondary to psychiatric illness (such as catatonia), or toxic-metabolic encephalopathy. Recommendations - Brain MRI wo contrast, stroke protocol - TME workup per ED - Agree with psych involvement for possible catatonia Patient discussed with stroke fellow, Dr. Painter, and chief resident, Dr. Chase. Pinky Wallace MD, PhD PGY4 Child Neurology Residency Program [facility] Pager #[phone] ADDENDUM 04/16/25: MRI BRAIN WET READ: No acute intracranial abnormality. Assessment: Carter Raymundo is 69 y.o. M w/ HTN, PD, schizoaffective disorder, CKD who presents with unresponsiveness, aphasia and possible L facial droop. L facial droop noted to be chronic as it was documented in 2023. Reassuringly, no evidence of stroke in MRI brain. Overall, higher suspicion for catatonia given psych assessment and responsive to ativan challenge than seizures. Recs: - Appreciate psych involvement - No further neuro workup - Dispo per ED, ongoing psych bed search Discussed with neurology attending Dr. Ramirez. Yuridia??n P??renetta Lucero MD Neurology, PGY-3 [phone] Addendum (11:26 AM): Re-examined in AM, no additional workup from neurologic standpoint needed as above. We will sign off. Cecily Palafox MD PhD [facility] Neurology Rotator [1] Social History Tobacco Use Smoking status: Former Current packs/day: 0.00 Types: Cigarettes Quit date: 09/30/1985 Years since quittin.5 Smokeless tobacco: Never Substance Use Topics Alcohol use: No Drug use: No [2] Social History Tobacco Use Smoking Status Former Current packs/day: 0.00 Types: Cigarettes Quit date: 09/30/1985 Years since quittin.5 Smokeless Tobacco Never Cosigned by Juarez Munoz MD at 04/17/2025 1:36 PM EDT Associated attestation - Juarez Munoz MD - 04/17/2025 1:36 PM EDT Images from the original note were not included. [facility] Department of Neurology NEUROLOGY ATTENDING CONSULT ATTESTATION NOTE Date of Service: 04/17/2025 Patient: Carter Raymundo I performed a history and physical examination on Carter Raymundo, have reviewed Cecily Palafox MD'snote, and discussed the management with the house staff. I reviewed the patient's chart and events of the hospital stay including those of the last 24 hours and agree with the documented findings andplan of care, unless documented below. Patient Summary: 69 y/o M with a history of schizoaffective disorder, parkinson's, CKD who presents as a stroke codefor unresponsiveness and concern for left facial droop. The patient is seen at bedside and states he is not doing well because of his situation, but is unable to provide further details on this complaint. He says he remembers the events from yesterday and states that he was pretending to be catatonic. Physical Exam: Blood pressure 131/78, pulse (!) 107, temperature 99 ??F (37.2 ??C), temperature source Oral, resp.rate 18, height 1.803 m (5' 11 ), weight 75.8 kg (167 lb 1.7 oz), SpO2 96%. Awake, alert, fully oriented, follows all commands, speech is fluent. PERRL, EOMI, facial sensationintact to light touch, L NLF activates symmetrically, tongue/uvula/palate midline. Intermittently following commands which appears effort dependent, limiting formal confrontation testing, but has at least antigravity strength in all limbs. Bilateral resting tremor, more prominent on the left. Sensation intact to light touch throughout. Finger to nose intact. Relevant studies: Labs reviewed. BUN/Cr 27/1.10. MRI brain reviewed, no acute stroke, mild white matter disease. ASSESSMENT AND PLAN Summarized Assessment/Recommendations I agree with Pinky Wallace MD's and Cecily Palafox MD's assessment below, low suspicion for stroke based on the history, and facial asymmetry has been documented in the past. MRI brain is negative which is reassuring. Current mental status and degree of interaction seems largely psychiatric in etiology. Would continue management as you are doing, no further neurological workup necessary at this time. Please page with questions. I personally spent 60 minutes on this encounter which included reviewing the patient's history, examining the patient, reviewing the chart, reviewing labs and images, formulating a management plan, and writing this note. documented in this encounter ED Notes * Cheryl Caballero RN - 04/15/2025 6:11 PM EDT LKW 1615, found altered at 1730 by [facility] staff. ?facial droop. Not answering questions. * Edwin Conner MD - 04/15/2025 6:10 PM EDT [facility] ED Provider Note Arrival Date: 04/15/2025 HISTORY, EXAM, & MEDICAL DECISION MAKING ED Triage Vitals BP Heart Rate Resp Temp SpO2 04/15/25 1811 04/15/25 1811 04/15/25 1811 04/15/25 1811 04/15/25 1859 (!) 158/100 (!) 104 16 98.2 ??F (36.8 ??C) 97 % HPI 69 y.o. male with history of dysphagia s/p recent G tube placement, schizoaffective disorder, drug-induced parkinsonism, CKD who presents with AMS. Patient was brought in by EMS from [facility]. Per EMS patient was acting at his baseline at 4:15 PM and then at a room check at 5:30 PM he was found to be aphasic, not moving extremities and his facial expressions look different per EMS. Not on anticoagulation. Blood glucose 74. BPs with systolics in the 150s, heart rates in the low 100s, no known history of prior strokes. On arrival patient with eyes open not responding to verbal or noxious stimuli. NIHSS 28, code stroke activated. PE Constitutional: No acute distress, not responding to commands HEENT: Normocephalic, atraumatic Resp: Normal resp rate, lungs clear CV: RRR, 2+ radial pulses GI: Nontender, nondistended MSK: No deformity. Skin: Warm, dry. Neuro: NIHSS 28, not following commands, intermittently moving limbs, not responding to noxious stimuli, blink reflex intact MDM Patient presented to the ED with altered mental status. Vitals here are reassuring. On exam, patient is awake but unresponsive to questions, blink reflex intact. Rapid assessment called upon patietn arrival, code stroke activated. CTA h/n without acute LVO/bleed. Neuro recs TME workup and MRI for fu rther assessment. Reaching out to psychiatry due to concern for possible catatonia. Unable to obtain significant portion of history, will proceed with broad workup. At signout patientpending finals neuro recs and psych recs. ED Course as of 04/17/25920Apr 15, 20252007 XR Chest 2 VW [CJ] 2007 CT Angiogram Head Neck Code Stroke : Arteriogram WET READ: This is a wet read. Noncontrast CT head: [no evidence of acute large vascular territory infarction or hemorrhage.] Patent [place] without evidence of substantial stenosis or occlusion. Patent bilateral cervical [carotid] and [vertebral] arteries without evidence of [stenosis >70% by NASCET criteria,] [occlusion,][or dissection]. Full read pending by neuroradiology. [CJ] ED Course User Index [CJ] Edwin Conner MD Clinical Impression Altered mental status, unspecified altered mental status type (Primary) Edwin Conner MD Resident 04/17/25925 documented in this encounter Miscellaneous Notes * Care Coordination Note - Demetra White RN - 06/25/2025 4:16 PM EDT Images from the original note were not included. [facility] Case Management Discharge Note Estimated time of discharge: 5pm; BLS ambulance booked. CM discharge Plan: IP Psych Facility [facility] [address] [place] [id number] Case Management comments: Please send with AVS for acute, section 12 order. RN was provided handoff phone # by psych admissions team. Transportation: BLS MD will notify brother/HCP of discharge. Demetra White [facility] [phone] * Plan of Care - Yu Gunderson RN - 06/24/2025 10:08 AM EDT Problem: Pain - Adult Goal: Verbalizes/displays adequate comfort level or baseline comfort level Outcome: Progressing Problem: Safety-Adult Goal: Free from fall injury Outcome: Progressing Problem: Discharge Planning Goal: Discharge to home or other facility with appropriate resources Outcome: Progressing Problem: Altered Nutrient Intake Goal: Nutrient intake appropriate for improving, restoring or maintaining nutritional needs Outcome: Progressing Problem: Chronic Conditions and Co-morbidities Goal: Patient's chronic conditions and co-morbidity symptoms are monitored and maintained or improved Outcome: Progressing Problem: Mobility Goal: Improve mobility to highest level of function Outcome: Progressing Problem: Knowledge Deficit Goal: Patient/family/caregiver demonstrates understanding of disease process, treatment plan, medications, and discharge instructions Outcome: Progressing Problem: Coping Goal: Patient/family/caregiver able to verbalize concerns and demonstrate effective coping strategies Outcome: Progressing Problem: Respiratory - Adult Goal: Achieves optimal ventilation and oxygenation Outcome: Progressing Problem: Skin/Tissue Integrity - Adult Goal: Skin integrity remains intact Outcome: Progressing Goal: Incisions, wounds, or drain sites healing without S/S of infection Outcome: Progressing Goal: Oral mucous membranes remain intact Outcome: Progressing * Plan of Care - Rosalinda Montano RN - 06/23/2025 12:11 PM EDT Problem: Pain - Adult Goal: Verbalizes/displays adequate comfort level or baseline comfort level Outcome: Progressing Problem: Safety-Adult Goal: Free from fall injury Outcome: Progressing Problem: Discharge Planning Goal: Discharge to home or other facility with appropriate resources Outcome: Progressing Problem: Altered Nutrient Intake Goal: Nutrient intake appropriate for improving, restoring or maintaining nutritional needs Outcome: Progressing Problem: Chronic Conditions and Co-morbidities Goal: Patient's chronic conditions and co-morbidity symptoms are monitored and maintained or improved Outcome: Progressing Problem: Mobility Goal: Improve mobility to highest level of function Outcome: Progressing Problem: Knowledge Deficit Goal: Patient/family/caregiver demonstrates understanding of disease process, treatment plan, medications, and discharge instructions Outcome: Progressing Problem: Coping Goal: Patient/family/caregiver able to verbalize concerns and demonstrate effective coping strategies Outcome: Progressing Problem: Respiratory - Adult Goal: Achieves optimal ventilation and oxygenation Outcome: Progressing Problem: Skin/Tissue Integrity - Adult Goal: Skin integrity remains intact Outcome: Progressing Goal: Incisions, wounds, or drain sites healing without S/S of infection Outcome: Progressing Goal: Oral mucous membranes remain intact Outcome: Progressing * Plan of Care - Rosalinda Montano RN - 06/22/2025 2:41 PM EDT Problem: Pain - Adult Goal: Verbalizes/displays adequate comfort level or baseline comfort level Outcome: Progressing Problem: Safety-Adult Goal: Free from fall injury Outcome: Progressing Problem: Discharge Planning Goal: Discharge to home or other facility with appropriate resources Outcome: Progressing Problem: Altered Nutrient Intake Goal: Nutrient intake appropriate for improving, restoring or maintaining nutritional needs Outcome: Progressing Problem: Chronic Conditions and Co-morbidities Goal: Patient's chronic conditions and co-morbidity symptoms are monitored and maintained or improved Outcome: Progressing Problem: Mobility Goal: Improve mobility to highest level of function Outcome: Progressing Problem: Knowledge Deficit Goal: Patient/family/caregiver demonstrates understanding of disease process, treatment plan, medications, and discharge instructions Outcome: Progressing Problem: Coping Goal: Patient/family/caregiver able to verbalize concerns and demonstrate effective coping strategies Outcome: Progressing Problem: Respiratory - Adult Goal: Achieves optimal ventilation and oxygenation Outcome: Progressing Problem: Skin/Tissue Integrity - Adult Goal: Skin integrity remains intact Outcome: Progressing Goal: Incisions, wounds, or drain sites healing without S/S of infection Outcome: Progressing * Plan of Care - Rosalinda Montano RN - 06/21/2025 1:58 PM EDT Problem: Pain - Adult Goal: Verbalizes/displays adequate comfort level or baseline comfort level Outcome: Progressing Problem: Safety-Adult Goal: Free from fall injury Outcome: Progressing Problem: Discharge Planning Goal: Discharge to home or other facility with appropriate resources Outcome: Progressing Problem: Altered Nutrient Intake Goal: Nutrient intake appropriate for improving, restoring or maintaining nutritional needs Outcome: Progressing Problem: Chronic Conditions and Co-morbidities Goal: Patient's chronic conditions and co-morbidity symptoms are monitored and maintained or improved Outcome: Progressing Problem: Mobility Goal: Improve mobility to highest level of function Outcome: Progressing Problem: Knowledge Deficit Goal: Patient/family/caregiver demonstrates understanding of disease process, treatment plan, medications, and discharge instructions Outcome: Progressing Problem: Coping Goal: Patient/family/caregiver able to verbalize concerns and demonstrate effective coping strategies Outcome: Progressing Problem: Respiratory - Adult Goal: Achieves optimal ventilation and oxygenation Outcome: Progressing Problem: Skin/Tissue Integrity - Adult Goal: Skin integrity remains intact Outcome: Progressing * Plan of Care - Una Adames NP - 06/21/2025 5:55 AM EDT Alert, oriented. +KAIBAB. Working on his writing during the beginning of the shift. VSS. Sat stable onRA. TF running via PEG, cycled [id number]. Meds crushed via PEG. Able to take tamsulosin whole with ice cream. Intermittent cough, strong, unrelated to PO intake. External catheter on, voiding clear, yellow urine. C/o increased drooling, would like to speak to his doctors about drooling, concerned his antipsychotic doses are too high. Despite this, he was amenable to taking medications as ordered.Slept overnight. Continues on 1:1 sitter. Problem: Pain - Adult Goal: Verbalizes/displays adequate comfort level or baseline comfort level Outcome: Progressing Problem: Safety-Adult Goal: Free from fall injury Outcome: Progressing Problem: Discharge Planning Goal: Discharge to home or other facility with appropriate resources Outcome: Progressing Problem: Altered Nutrient Intake Goal: Nutrient intake appropriate for improving, restoring or maintaining nutritional needs Outcome: Progressing Problem: Chronic Conditions and Co-morbidities Goal: Patient's chronic conditions and co-morbidity symptoms are monitored and maintained or improved Outcome: Progressing Problem: Mobility Goal: Improve mobility to highest level of function Outcome: Progressing Problem: Knowledge Deficit Goal: Patient/family/caregiver demonstrates understanding of disease process, treatment plan, medications, and discharge instructions Outcome: Progressing Problem: Respiratory - Adult Goal: Achieves optimal ventilation and oxygenation Outcome: Progressing Problem: Skin/Tissue Integrity - Adult Goal: Skin integrity remains intact Outcome: Progressing Goal: Incisions, wounds, or drain sites healing without S/S of infection Outcome: Progressing Goal: Oral mucous membranes remain intact Outcome: Progressing * Liaison Communication - Kimani Rivas MD - 06/19/2025 6:46 PM EDT 06/19/25 Collateral: Delvin Raymundo, patient's brother Delvin reports that he has been in more regular contact with patient, and he seems a little grandiose and hyper, but overall he is markedly improved from how he's been previously . He would say that he is 75-80% of his baseline self. He naturally has a big ego but it seems to be a bit more than usual. He is more in this world but has less realistic expectations at this time. He appreciates that he has made good progress physically as well, and socially has been contacting his friends. He hasasked him [Delvin] to hold off on seeing him for a time. TW provided clinical update and plan for continued psychiatric stabilization for ultimate dispo to acute rehab. He intends to visit patient next week. Kimani Rivas MD Psychiatry PGY2 Psychiatry Consultation-Liaison Service If [facility] Psychiatry is needed, please contact [phone] for overnight or weekend psychiatric emergencies. * Plan of Care - Rachna Stein RN - 06/19/2025 6:45 PM EDT Problem: Pain - Adult Goal: Verbalizes/displays adequate comfort level or baseline comfort level Outcome: Progressing Problem: Safety-Adult Goal: Free from fall injury Outcome: Progressing Flowsheets (Taken 06/19/2025 1330) Elimination, Bowel, Urine Fall Interventions: All elimination risk interventions completed Fall History Interventions: All fall history interventions completed Medications Interventions: All medications interventions completed Patient Care Equipment Interventions: All patient care equipment interventions completed Mobility Interventions: All mobility interventions completed Cognition Interventions: All cognition interventions completed Problem: Discharge Planning Goal: Discharge to home or other facility with appropriate resources Outcome: Progressing Problem: Altered Nutrient Intake Goal: Nutrient intake appropriate for improving, restoring or maintaining nutritional needs Outcome: Progressing Problem: Chronic Conditions and Co-morbidities Goal: Patient's chronic conditions and co-morbidity symptoms are monitored and maintained or improved Outcome: Progressing Problem: Mobility Goal: Improve mobility to highest level of function Outcome: Progressing Problem: Knowledge Deficit Goal: Patient/family/caregiver demonstrates understanding of disease process, treatment plan, medications, and discharge instructions Outcome: Progressing Problem: Coping Goal: Patient/family/caregiver able to verbalize concerns and demonstrate effective coping strategies Outcome: Progressing Problem: Behavior risks interference with medical technologist prn(s) and/or care Goal: Patient remains free from behavior that interferes with medical devices and/or care and restraints are discontinued as soon as indicated Outcome: Completed Problem: Respiratory - Adult Goal: Achieves optimal ventilation and oxygenation Outcome: Progressing Problem: Skin/Tissue Integrity - Adult Goal: Skin integrity remains intact Outcome: Progressing Goal: Incisions, wounds, or drain sites healing without S/S of infection Outcome: Progressing Goal: Oral mucous membranes remain intact Outcome: Progressing * Plan of Care - Rosalinda Montano RN - 06/19/2025 12:06 AM EDT Problem: Pain - Adult Goal: Verbalizes/displays adequate comfort level or baseline comfort level Outcome: Progressing Problem: Safety-Adult Goal: Free from fall injury Outcome: Progressing Problem: Discharge Planning Goal: Discharge to home or other facility with appropriate resources Outcome: Progressing Problem: Altered Nutrient Intake Goal: Nutrient intake appropriate for improving, restoring or maintaining nutritional needs Outcome: Progressing Problem: Mobility Goal: Improve mobility to highest level of function Outcome: Progressing Problem: Knowledge Deficit Goal: Patient/family/caregiver demonstrates understanding of disease process, treatment plan, medications, and discharge instructions Outcome: Progressing Problem: Coping Goal: Patient/family/caregiver able to verbalize concerns and demonstrate effective coping strategies Outcome: Progressing Problem: Behavior risks interference with medical technologist prn(s) and/or care Goal: Patient remains free from behavior that interferes with medical devices and/or care and restraints are discontinued as soon as indicated Outcome: Progressing Problem: Respiratory - Adult Goal: Achieves optimal ventilation and oxygenation Outcome: Progressing Problem: Skin/Tissue Integrity - Adult Goal: Skin integrity remains intact Outcome: Progressing Goal: Incisions, wounds, or drain sites healing without S/S of infection Outcome: Progressing * Plan of Care - Joselin Richmond RN - 06/18/2025 4:16 PM EDT AxOx3. RA. PEG tube in place, Jevity 1.5 running at 85 mL/hr cyclic 6pm-10am. NPO except for sips with meds and 3 snacks per day per order. X3 loose BM's this shift. Voiding via purewick. Pills crushed through PEG. No access, okay per order. 1:[address] X2 T/R. Frequent checks, safety maintained. Problem: Pain - Adult Goal: Verbalizes/displays adequate comfort level or baseline comfort level Outcome: Progressing Problem: Safety-Adult Goal: Free from fall injury Outcome: Progressing Problem: Discharge Planning Goal: Discharge to home or other facility with appropriate resources Outcome: Progressing Problem: Altered Nutrient Intake Goal: Nutrient intake appropriate for improving, restoring or maintaining nutritional needs Outcome: Progressing Problem: Chronic Conditions and Co-morbidities Goal: Patient's chronic conditions and co-morbidity symptoms are monitored and maintained or improved Outcome: Progressing Problem: Mobility Goal: Improve mobility to highest level of function Outcome: Progressing Problem: Knowledge Deficit Goal: Patient/family/caregiver demonstrates understanding of disease process, treatment plan, medications, and discharge instructions Outcome: Progressing Problem: Coping Goal: Patient/family/caregiver able to verbalize concerns and demonstrate effective coping strategies Outcome: Progressing Problem: Behavior risks interference with medical technologist prn(s) and/or care Goal: Patient remains free from behavior that interferes with medical devices and/or care and restraints are discontinued as soon as indicated Outcome: Progressing Problem: Respiratory - Adult Goal: Achieves optimal ventilation and oxygenation Outcome: Progressing Problem: Skin/Tissue Integrity - Adult Goal: Skin integrity remains intact Outcome: Progressing Goal: Incisions, wounds, or drain sites healing without S/S of infection Outcome: Progressing Goal: Oral mucous membranes remain intact Outcome: Progressing * Plan of Care - Rosalinda Montano RN - 06/18/2025 12:37 AM EDT In evening, pt called nursing station states I definitely have a blood clot in my leg. Upon assessment pt states I have a blood clot in my left leg I need an xray. Denies pain to leg. No redness,no swelling noted. MD Melendez made aware. Approx 04:00 pt called RN to bedside, states I'm hyper-aware of my body and something is wrong with my leg. Continues to deny pain. MD Melendez to bedside. Medicated per DEC. Tolerating TF as ordered. 1:[address] Frequent safety checks. Problem: Pain - Adult Goal: Verbalizes/displays adequate comfort level or baseline comfort level Outcome: Progressing Problem: Safety-Adult Goal: Free from fall injury Outcome: Progressing Problem: Discharge Planning Goal: Discharge to home or other facility with appropriate resources Outcome: Progressing Problem: Altered Nutrient Intake Goal: Nutrient intake appropriate for improving, restoring or maintaining nutritional needs Outcome: Progressing Problem: Chronic Conditions and Co-morbidities Goal: Patient's chronic conditions and co-morbidity symptoms are monitored and maintained or improved Outcome: Progressing Problem: Mobility Goal: Improve mobility to highest level of function Outcome: Progressing Problem: Knowledge Deficit Goal: Patient/family/caregiver demonstrates understanding of disease process, treatment plan, medications, and discharge instructions Outcome: Progressing Problem: Coping Goal: Patient/family/caregiver able to verbalize concerns and demonstrate effective coping strategies Outcome: Progressing Problem: Behavior risks interference with medical technologist prn(s) and/or care Goal: Patient remains free from behavior that interferes with medical devices and/or care and restraints are discontinued as soon as indicated Outcome: Progressing Problem: Respiratory - Adult Goal: Achieves optimal ventilation and oxygenation Outcome: Progressing * Plan of Care - Rachna Stein RN - 06/17/2025 6:38 AM EDT Problem: Pain - Adult Goal: Verbalizes/displays adequate comfort level or baseline comfort level Outcome: Progressing Problem: Safety-Adult Goal: Free from fall injury Outcome: Progressing Flowsheets (Taken 06/17/2025 0100) Elimination, Bowel, Urine Fall Interventions: All elimination risk interventions completed Fall History Interventions: All fall history interventions completed Medications Interventions: All medications interventions completed Patient Care Equipment Interventions: All patient care equipment interventions completed Mobility Interventions: All mobility interventions completed Cognition Interventions: All cognition interventions completed Problem: Discharge Planning Goal: Discharge to home or other facility with appropriate resources Outcome: Not Progressing Problem: Altered Nutrient Intake Goal: Nutrient intake appropriate for improving, restoring or maintaining nutritional needs Outcome: Progressing Problem: Chronic Conditions and Co-morbidities Goal: Patient's chronic conditions and co-morbidity symptoms are monitored and maintained or improved Outcome: Progressing Problem: Mobility Goal: Improve mobility to highest level of function Outcome: Progressing Problem: Knowledge Deficit Goal: Patient/family/caregiver demonstrates understanding of disease process, treatment plan, medications, and discharge instructions Outcome: Progressing Problem: Coping Goal: Patient/family/caregiver able to verbalize concerns and demonstrate effective coping strategies Outcome: Progressing Problem: Behavior risks interference with medical technologist prn(s) and/or care Goal: Patient remains free from behavior that interferes with medical devices and/or care and restraints are discontinued as soon as indicated Outcome: Progressing Problem: Respiratory - Adult Goal: Achieves optimal ventilation and oxygenation Outcome: Progressing Problem: Skin/Tissue Integrity - Adult Goal: Skin integrity remains intact Outcome: Progressing Goal: Incisions, wounds, or drain sites healing without S/S of infection Outcome: Progressing Goal: Oral mucous membranes remain intact Outcome: Progressing * Plan of Care - Aisha Will RN - 06/16/2025 7:03 PM EDT Pt A&Ox3. Conversational and asking for music in the AM. Pt later explaining he was going to the bad place again and having suicidal thoughts. Md Holden aware of comments and pt started to feelbetter. Pt went off floor with 1:1 sitter for Xray of abdomen, pt returned crying but was able to settle him. Psychiatrist up to floor to talk to pt. Pt had 2 snacks today, oral care provided with snacks. TF stopped at 10am and started at 6pm. Up in chair during shift. Incont care provided for multiple bms. Problem: Pain - Adult Goal: Verbalizes/displays adequate comfort level or baseline comfort level Outcome: Progressing Problem: Safety-Adult Goal: Free from fall injury Outcome: Progressing Problem: Altered Nutrient Intake Goal: Nutrient intake appropriate for improving, restoring or maintaining nutritional needs Outcome: Progressing Problem: Chronic Conditions and Co-morbidities Goal: Patient's chronic conditions and co-morbidity symptoms are monitored and maintained or improved Outcome: Progressing Problem: Mobility Goal: Improve mobility to highest level of function Outcome: Progressing Problem: Knowledge Deficit Goal: Patient/family/caregiver demonstrates understanding of disease process, treatment plan, medications, and discharge instructions Outcome: Progressing Problem: Coping Goal: Patient/family/caregiver able to verbalize concerns and demonstrate effective coping strategies Outcome: Progressing Problem: Behavior risks interference with medical technologist prn(s) and/or care Goal: Patient remains free from behavior that interferes with medical devices and/or care and restraints are discontinued as soon as indicated Outcome: Progressing Problem: Respiratory - Adult Goal: Achieves optimal ventilation and oxygenation Outcome: Progressing Problem: Skin/Tissue Integrity - Adult Goal: Skin integrity remains intact Outcome: Progressing Goal: Incisions, wounds, or drain sites healing without S/S of infection Outcome: Progressing Goal: Oral mucous membranes remain intact Outcome: Progressing Problem: Discharge Planning Goal: Discharge to home or other facility with appropriate resources Outcome: Not Progressing * Plan of Care - Rachna Stein RN - 06/16/2025 6:57 AM EDT Problem: Pain - Adult Goal: Verbalizes/displays adequate comfort level or baseline comfort level Outcome: Progressing Problem: Safety-Adult Goal: Free from fall injury Outcome: Progressing Flowsheets (Taken 06/16/2025 0200) Elimination, Bowel, Urine Fall Interventions: All elimination risk interventions completed Fall History Interventions: All fall history interventions completed Medications Interventions: All medications interventions completed Patient Care Equipment Interventions: All patient care equipment interventions completed Mobility Interventions: All mobility interventions completed Cognition Interventions: All cognition interventions completed Problem: Discharge Planning Goal: Discharge to home or other facility with appropriate resources Outcome: Not Progressing Problem: Altered Nutrient Intake Goal: Nutrient intake appropriate for improving, restoring or maintaining nutritional needs Outcome: Progressing Problem: Chronic Conditions and Co-morbidities Goal: Patient's chronic conditions and co-morbidity symptoms are monitored and maintained or improved Outcome: Progressing Problem: Mobility Goal: Improve mobility to highest level of function Outcome: Progressing Problem: Knowledge Deficit Goal: Patient/family/caregiver demonstrates understanding of disease process, treatment plan, medications, and discharge instructions Outcome: Progressing Problem: Coping Goal: Patient/family/caregiver able to verbalize concerns and demonstrate effective coping strategies Outcome: Progressing Problem: Behavior risks interference with medical technologist prn(s) and/or care Goal: Patient remains free from behavior that interferes with medical devices and/or care and restraints are discontinued as soon as indicated Outcome: Progressing Problem: Respiratory - Adult Goal: Achieves optimal ventilation and oxygenation Outcome: Progressing Problem: Skin/Tissue Integrity - Adult Goal: Skin integrity remains intact Outcome: Progressing Goal: Incisions, wounds, or drain sites healing without S/S of infection Outcome: Progressing Goal: Oral mucous membranes remain intact Outcome: Progressing * Plan of Care - Kandis Johnson RN - 06/16/2025 12:19 AM EDT Pt A+Ox4. Afebrile. Pleasant and coop with care with this RN all shift. Pt was very conversational about pleasant topics such as classical music/orchestra, poetry, and languages. Pt occ reported he had moments of feeling a little more on edge but that he felt he was able to keep calm. Pt very communicative about his feelings today. No apparent restlessness or agitation. No verbal or physical threats/abuse. Pt following direction well. T+R freq with 2 assist. OOB with this RN, pt able to standwith RW and max assist, but unable to take steps for this RN. Lifted to chair with cory and pt loved sitting in the chair - tolerated for 3hrs. Pt worked with PT and returned to bed during PT session. Safety maintained. TF started at 1840, no sx asp noted. Pt freq asking for snacks . Provided pureed pears, ice cream, and popsicles. Pt fed self well, upright with asp prec. No asp noted. No coughing. Pt started to verbalize that he felt more agitated in the evening, able to redirect, admin scheduled medications via PEG with good effect, pt very pleasant at this time. Inc of stool today x 4, loose, brown stool. +Bsx4. Abd still decently firm/NT/distended. Denies N/V/D. Pt reports he would like to have an increase in POs. C/O neck and back pain. Admin lidocaine patches and tylenol with fair effect. Fall prec and safety maintained. Problem: Pain - Adult Goal: Verbalizes/displays adequate comfort level or baseline comfort level Outcome: Not Progressing Problem: Altered Nutrient Intake Goal: Nutrient intake appropriate for improving, restoring or maintaining nutritional needs Outcome: Not Progressing Problem: Safety-Adult Goal: Free from fall injury Outcome: Progressing Problem: Discharge Planning Goal: Discharge to home or other facility with appropriate resources Outcome: Progressing Problem: Chronic Conditions and Co-morbidities Goal: Patient's chronic conditions and co-morbidity symptoms are monitored and maintained or improved Outcome: Progressing Problem: Mobility Goal: Improve mobility to highest level of function Outcome: Progressing Problem: Knowledge Deficit Goal: Patient/family/caregiver demonstrates understanding of disease process, treatment plan, medications, and discharge instructions Outcome: Progressing Problem: Coping Goal: Patient/family/caregiver able to verbalize concerns and demonstrate effective coping strategies Outcome: Progressing Problem: Behavior risks interference with medical technologist prn(s) and/or care Goal: Patient remains free from behavior that interferes with medical devices and/or care and restraints are discontinued as soon as indicated Outcome: Progressing Problem: Respiratory - Adult Goal: Achieves optimal ventilation and oxygenation Outcome: Progressing Problem: Skin/Tissue Integrity - Adult Goal: Skin integrity remains intact Outcome: Progressing Goal: Incisions, wounds, or drain sites healing without S/S of infection Outcome: Progressing Goal: Oral mucous membranes remain intact Outcome: Progressing * Plan of Care - Kandis Johnson RN - 06/14/2025 6:34 PM EDT Pt agitated at start of shift. Pt reports I may not look it, but I feel very on edge, I've been trying for an hour to keep calm . Pt occasionally yelling out at sitter. Admin haldol x 1 with good effect. Pt calmly talking to this RN respectively and pleasantly at this time. Calm and cooperative. Pt accepted tylenol. Pt c/o reflux symptoms. Admin TUMs x 1 , pending effects. Pt's abs firm, large, distended. This RN asked patient if he had to have a BM and he responded yes, but I don't want to push . Education provided regarding constipation. Pt reports he is passing flatulence and declining repositioning, bowel meds, or bedpan. Freq checks. Cont 1:1 sitter. Safety maintained. Problem: Pain - Adult Goal: Verbalizes/displays adequate comfort level or baseline comfort level Outcome: Progressing Problem: Safety-Adult Goal: Free from fall injury Outcome: Progressing Problem: Discharge Planning Goal: Discharge to home or other facility with appropriate resources Outcome: Progressing Problem: Altered Nutrient Intake Goal: Nutrient intake appropriate for improving, restoring or maintaining nutritional needs Outcome: Not Progressing Problem: Chronic Conditions and Co-morbidities Goal: Patient's chronic conditions and co-morbidity symptoms are monitored and maintained or improved Outcome: Progressing Problem: Knowledge Deficit Goal: Patient/family/caregiver demonstrates understanding of disease process, treatment plan, medications, and discharge instructions Outcome: Progressing Problem: Coping Goal: Patient/family/caregiver able to verbalize concerns and demonstrate effective coping strategies Outcome: Progressing Problem: Behavior risks interference with medical technologist prn(s) and/or care Goal: Patient remains free from behavior that interferes with medical devices and/or care and restraints are discontinued as soon as indicated Outcome: Progressing Problem: Respiratory - Adult Goal: Achieves optimal ventilation and oxygenation Outcome: Progressing Problem: Skin/Tissue Integrity - Adult Goal: Skin integrity remains intact Outcome: Progressing Goal: Incisions, wounds, or drain sites healing without S/S of infection Outcome: Progressing Goal: Oral mucous membranes remain intact Outcome: Progressing * Plan of Care - Chris Soria RN - 06/14/2025 2:53 PM EDT Pt was irritable using foul languages. Verbally aggressive. Given morning medication as ordered. Ptlabile, intermittent with calm * aggressive behavior throughout this shift. Pt tolerated a cup of ice-cream milkshake; able to grasp cup and feed self. Male purewick intact. Pt declined oob to chair and declined reposition. Problem: Pain - Adult Goal: Verbalizes/displays adequate comfort level or baseline comfort level Outcome: Progressing Problem: Safety-Adult Goal: Free from fall injury Outcome: Progressing Problem: Discharge Planning Goal: Discharge to home or other facility with appropriate resources Outcome: Progressing Problem: Altered Nutrient Intake Goal: Nutrient intake appropriate for improving, restoring or maintaining nutritional needs Outcome: Progressing Problem: Chronic Conditions and Co-morbidities Goal: Patient's chronic conditions and co-morbidity symptoms are monitored and maintained or improved Outcome: Progressing * Plan of Care - Sara Chavis RN - 06/13/2025 11:25 PM EDT Pt alert/oriented C/o mild pain to L shoulder Re'cd standing tylenol as ordered/lidocaine patch applied Pt madhav ice cream/popsicles- asp precautions maintained TF via PEG- glucerna 1.5 75cc/hr- goal Pt compliant- oob to chair previous shift Repositioned in bed with 1 assist Barrier cream to coccyx Pt attempted to use urinal yet missed- inc x 2 this shift no bm this shift Bed alarmed for environmental health safety engineer in place Problem: Pain - Adult Goal: Verbalizes/displays adequate comfort level or baseline comfort level Outcome: Progressing Problem: Pain - Adult Goal: Verbalizes/displays adequate comfort level or baseline comfort level Outcome: Progressing Problem: Safety-Adult Goal: Free from fall injury Outcome: Progressing Problem: Altered Nutrient Intake Goal: Nutrient intake appropriate for improving, restoring or maintaining nutritional needs Outcome: Progressing Problem: Chronic Conditions and Co-morbidities Goal: Patient's chronic conditions and co-morbidity symptoms are monitored and maintained or improved Outcome: Progressing * Plan of Care - Chris Soria RN - 06/13/2025 3:13 PM EDT Problem: Pain - Adult Goal: Verbalizes/displays adequate comfort level or baseline comfort level Outcome: Progressing Problem: Safety-Adult Goal: Free from fall injury Outcome: Progressing Problem: Discharge Planning Goal: Discharge to home or other facility with appropriate resources Outcome: Progressing Problem: Altered Nutrient Intake Goal: Nutrient intake appropriate for improving, restoring or maintaining nutritional needs Outcome: Progressing Problem: Chronic Conditions and Co-morbidities Goal: Patient's chronic conditions and co-morbidity symptoms are monitored and maintained or improved Outcome: Progressing * Plan of Care - Sara Chavis RN - 06/12/2025 5:24 PM EDT Pt alert/oriented to name/month/year/place Denies pain Pt calm and cooperative throughout shift Rec'd all meds via PEG TF off at 10 am per orders flushed without incident dsg changed Pt had few ice chips/ strawberry frap (x2)- madhav well no s/sx aspiration Frequent mouth care performed Pt inc early this am later in shift able to use urinal inc one small brown soft stool Psych following- remains on 1:1 sitter PT worked with pt oob to chair - 2 person heavy assist Problem: Pain - Adult Goal: Verbalizes/displays adequate comfort level or baseline comfort level Outcome: Progressing Problem: Safety-Adult Goal: Free from fall injury Outcome: Progressing Problem: Discharge Planning Goal: Discharge to home or other facility with appropriate resources Outcome: Progressing Problem: Altered Nutrient Intake Goal: Nutrient intake appropriate for improving, restoring or maintaining nutritional needs Outcome: Progressing Problem: Chronic Conditions and Co-morbidities Goal: Patient's chronic conditions and co-morbidity symptoms are monitored and maintained or improved Outcome: Progressing Problem: Mobility Goal: Improve mobility to highest level of function Outcome: Progressing Problem: Knowledge Deficit Goal: Patient/family/caregiver demonstrates understanding of disease process, treatment plan, medications, and discharge instructions Outcome: Progressing Problem: Behavior risks interference with medical technologist prn(s) and/or care Goal: Patient remains free from behavior that interferes with medical devices and/or care and restraints are discontinued as soon as indicated Outcome: Progressing * Plan of Care - Angel Luis Frausto RN - 06/11/2025 11:01 PM EDT Problem: Pain - Adult Goal: Verbalizes/displays adequate comfort level or baseline comfort level Outcome: Progressing Problem: Safety-Adult Goal: Free from fall injury Outcome: Progressing Flowsheets (Taken 06/11/20251999) Elimination, Bowel, Urine Fall Interventions: All elimination risk interventions completed Fall History Interventions: All fall history interventions completed Medications Interventions: All medications interventions completed Patient Care Equipment Interventions: All patient care equipment interventions completed Mobility Interventions: All mobility interventions completed Cognition Interventions: All cognition interventions completed Problem: Discharge Planning Goal: Discharge to home or other facility with appropriate resources Outcome: Progressing Problem: Altered Nutrient Intake Goal: Nutrient intake appropriate for improving, restoring or maintaining nutritional needs Outcome: Progressing Problem: Chronic Conditions and Co-morbidities Goal: Patient's chronic conditions and co-morbidity symptoms are monitored and maintained or improved Outcome: Progressing Problem: Mobility Goal: Improve mobility to highest level of function Outcome: Progressing Problem: Knowledge Deficit Goal: Patient/family/caregiver demonstrates understanding of disease process, treatment plan, medications, and discharge instructions Outcome: Progressing Problem: Coping Goal: Patient/family/caregiver able to verbalize concerns and demonstrate effective coping strategies Outcome: Progressing Problem: Behavior risks interference with medical technologist prn(s) and/or care Goal: Patient remains free from behavior that interferes with medical devices and/or care and restraints are discontinued as soon as indicated Outcome: Progressing Problem: Respiratory - Adult Goal: Achieves optimal ventilation and oxygenation Outcome: Progressing Problem: Skin/Tissue Integrity - Adult Goal: Skin integrity remains intact Outcome: Progressing Goal: Incisions, wounds, or drain sites healing without S/S of infection Outcome: Progressing Goal: Oral mucous membranes remain intact Outcome: Progressing * Plan of Care - Param Beltrán RN - 06/11/2025 3:38 PM EDT Aox1-3 waxes and wanes. Labile, intermittent delusions and paranoia but marked improvement over this week. NPO, ice chips 1:1 with RN, meds crushed through G- tube. VSS, satting well on RA spot checks. Incontinent of stool and urine, passing gas this shift with no BM. Male Purewick replaced, draining clear yellow urine. X1-2 Turn and reposition in bed, lift OOB. Patient worked with PT this shift x2 heavy assist to chair. Problem: Pain - Adult Goal: Verbalizes/displays adequate comfort level or baseline comfort level Outcome: Progressing Problem: Safety-Adult Goal: Free from fall injury Outcome: Progressing Flowsheets (Taken 06/11/2025 1000) Elimination, Bowel, Urine Fall Interventions: All elimination risk interventions completed Fall History Interventions: All fall history interventions completed Medications Interventions: All medications interventions completed Patient Care Equipment Interventions: All patient care equipment interventions completed Mobility Interventions: All mobility interventions completed Cognition Interventions: All cognition interventions completed Problem: Discharge Planning Goal: Discharge to home or other facility with appropriate resources Outcome: Progressing Problem: Altered Nutrient Intake Goal: Nutrient intake appropriate for improving, restoring or maintaining nutritional needs Outcome: Progressing Problem: Chronic Conditions and Co-morbidities Goal: Patient's chronic conditions and co-morbidity symptoms are monitored and maintained or improved Outcome: Progressing Problem: Mobility Goal: Improve mobility to highest level of function Outcome: Progressing Problem: Knowledge Deficit Goal: Patient/family/caregiver demonstrates understanding of disease process, treatment plan, medications, and discharge instructions Outcome: Progressing Problem: Coping Goal: Patient/family/caregiver able to verbalize concerns and demonstrate effective coping strategies Outcome: Progressing * Plan of Care - Yu Gunderson RN - 06/11/2025 12:45 AM EDT Problem: Pain - Adult Goal: Verbalizes/displays adequate comfort level or baseline comfort level Outcome: Progressing Problem: Safety-Adult Goal: Free from fall injury Outcome: Progressing Problem: Discharge Planning Goal: Discharge to home or other facility with appropriate resources Outcome: Progressing Problem: Altered Nutrient Intake Goal: Nutrient intake appropriate for improving, restoring or maintaining nutritional needs Outcome: Progressing Problem: Chronic Conditions and Co-morbidities Goal: Patient's chronic conditions and co-morbidity symptoms are monitored and maintained or improved Outcome: Progressing Problem: Mobility Goal: Improve mobility to highest level of function Outcome: Progressing Problem: Knowledge Deficit Goal: Patient/family/caregiver demonstrates understanding of disease process, treatment plan, medications, and discharge instructions Outcome: Progressing Problem: Coping Goal: Patient/family/caregiver able to verbalize concerns and demonstrate effective coping strategies Outcome: Progressing Problem: Behavior risks interference with medical technologist prn(s) and/or care Goal: Patient remains free from behavior that interferes with medical devices and/or care and restraints are discontinued as soon as indicated Outcome: Progressing Problem: Respiratory - Adult Goal: Achieves optimal ventilation and oxygenation Outcome: Progressing Problem: Skin/Tissue Integrity - Adult Goal: Skin integrity remains intact Outcome: Progressing Goal: Incisions, wounds, or drain sites healing without S/S of infection Outcome: Progressing Goal: Oral mucous membranes remain intact Outcome: Progressing * Plan of Care - Aisha Will RN - 06/10/2025 7:02 AM EDT A&O to person and place. VSS, held overnight. Pt in chair at beginning of shift, complained of pain in back. Scheduled tylenol admin and pt returned to bed. Pt saying he was suicidal and havingincreased agitation. MD Rand called to bedside. 1:[address] TF running per orders. X1 large bm. Bed locked and low with alarm on, safety maintained. Problem: Pain - Adult Goal: Verbalizes/displays adequate comfort level or baseline comfort level Outcome: Progressing Problem: Safety-Adult Goal: Free from fall injury Outcome: Progressing Problem: Discharge Planning Goal: Discharge to home or other facility with appropriate resources Outcome: Progressing Problem: Altered Nutrient Intake Goal: Nutrient intake appropriate for improving, restoring or maintaining nutritional needs Outcome: Progressing Problem: Chronic Conditions and Co-morbidities Goal: Patient's chronic conditions and co-morbidity symptoms are monitored and maintained or improved Outcome: Progressing Problem: Mobility Goal: Improve mobility to highest level of function Outcome: Progressing Problem: Knowledge Deficit Goal: Patient/family/caregiver demonstrates understanding of disease process, treatment plan, medications, and discharge instructions Outcome: Progressing Problem: Behavior risks interference with medical technologist prn(s) and/or care Goal: Patient remains free from behavior that interferes with medical devices and/or care and restraints are discontinued as soon as indicated Outcome: Progressing Problem: Respiratory - Adult Goal: Achieves optimal ventilation and oxygenation Outcome: Progressing Problem: Skin/Tissue Integrity - Adult Goal: Skin integrity remains intact Outcome: Progressing Goal: Incisions, wounds, or drain sites healing without S/S of infection Outcome: Progressing Goal: Oral mucous membranes remain intact Outcome: Progressing Problem: Coping Goal: Patient/family/caregiver able to verbalize concerns and demonstrate effective coping strategies Outcome: Not Progressing * Plan of Care - Aisha Will RN - 06/09/2025 7:07 AM EDT A&O to person and place. VSS, held overnight. TF running per order. Scheduled tylenol given forpain with +effect and pt sleeping on recheck. Pt endorsed feeling like he didn't want to wake up again , therapeutic communication offered and music put on. He reported feeling better before leavingroom, MD Rand aware. PRN Haldol given for agitation given at 0515. 1:1 sitter. Frequent checks, safety maintained. Problem: Pain - Adult Goal: Verbalizes/displays adequate comfort level or baseline comfort level Outcome: Progressing Problem: Safety-Adult Goal: Free from fall injury Outcome: Progressing Problem: Discharge Planning Goal: Discharge to home or other facility with appropriate resources Outcome: Progressing Problem: Altered Nutrient Intake Goal: Nutrient intake appropriate for improving, restoring or maintaining nutritional needs Outcome: Progressing Problem: Chronic Conditions and Co-morbidities Goal: Patient's chronic conditions and co-morbidity symptoms are monitored and maintained or improved Outcome: Progressing Problem: Mobility Goal: Improve mobility to highest level of function Outcome: Progressing Problem: Knowledge Deficit Goal: Patient/family/caregiver demonstrates understanding of disease process, treatment plan, medications, and discharge instructions Outcome: Progressing Problem: Coping Goal: Patient/family/caregiver able to verbalize concerns and demonstrate effective coping strategies Outcome: Progressing Problem: Behavior risks interference with medical technologist prn(s) and/or care Goal: Patient remains free from behavior that interferes with medical devices and/or care and restraints are discontinued as soon as indicated Outcome: Progressing Problem: Respiratory - Adult Goal: Achieves optimal ventilation and oxygenation Outcome: Progressing Problem: Skin/Tissue Integrity - Adult Goal: Skin integrity remains intact Outcome: Progressing Goal: Incisions, wounds, or drain sites healing without S/S of infection Outcome: Progressing Goal: Oral mucous membranes remain intact Outcome: Progressing * Plan of Care - Param Beltrán RN - 06/08/2025 3:27 PM EDT Problem: Pain - Adult Goal: Verbalizes/displays adequate comfort level or baseline comfort level Outcome: Progressing Problem: Safety-Adult Goal: Free from fall injury Outcome: Progressing Problem: Discharge Planning Goal: Discharge to home or other facility with appropriate resources Outcome: Progressing Problem: Altered Nutrient Intake Goal: Nutrient intake appropriate for improving, restoring or maintaining nutritional needs Outcome: Progressing Problem: Chronic Conditions and Co-morbidities Goal: Patient's chronic conditions and co-morbidity symptoms are monitored and maintained or improved Outcome: Progressing Problem: Knowledge Deficit Goal: Patient/family/caregiver demonstrates understanding of disease process, treatment plan, medications, and discharge instructions Outcome: Progressing Problem: Coping Goal: Patient/family/caregiver able to verbalize concerns and demonstrate effective coping strategies Outcome: Progressing Problem: Behavior risks interference with medical technologist prn(s) and/or care Goal: Patient remains free from behavior that interferes with medical devices and/or care and restraints are discontinued as soon as indicated Outcome: Progressing Problem: Respiratory - Adult Goal: Achieves optimal ventilation and oxygenation Outcome: Progressing Problem: Skin/Tissue Integrity - Adult Goal: Skin integrity remains intact Outcome: Progressing Goal: Incisions, wounds, or drain sites healing without S/S of infection Outcome: Progressing Goal: Oral mucous membranes remain intact Outcome: Progressing * Plan of Care - Rachna Stein RN - 06/08/2025 6:43 AM EDT A&O to person and place, disoriented to time and situation. Pt endorsing paranoid delusions this shift. NSR on tele. Cont O2 monitoring, RA, x1 desat around 0530 for O2<88, pt recovered on own, MD Kaur aware. X1 BM this shift. Male purwick in place. Pt refusing 0000 vital signs, finger stick, and tylenol, MD Kaur aware. Bed locked and low, call light in reach, bed alarm on, safety maintained. Problem: Pain - Adult Goal: Verbalizes/displays adequate comfort level or baseline comfort level Outcome: Progressing Problem: Safety-Adult Goal: Free from fall injury Outcome: Progressing Problem: Discharge Planning Goal: Discharge to home or other facility with appropriate resources Outcome: Not Progressing Problem: Altered Nutrient Intake Goal: Nutrient intake appropriate for improving, restoring or maintaining nutritional needs Outcome: Progressing Problem: Chronic Conditions and Co-morbidities Goal: Patient's chronic conditions and co-morbidity symptoms are monitored and maintained or improved Outcome: Progressing Problem: Mobility Goal: Improve mobility to highest level of function Outcome: Progressing Problem: Knowledge Deficit Goal: Patient/family/caregiver demonstrates understanding of disease process, treatment plan, medications, and discharge instructions Outcome: Progressing Problem: Coping Goal: Patient/family/caregiver able to verbalize concerns and demonstrate effective coping strategies Outcome: Progressing Problem: Behavior risks interference with medical technologist prn(s) and/or care Goal: Patient remains free from behavior that interferes with medical devices and/or care and restraints are discontinued as soon as indicated Outcome: Progressing Problem: Respiratory - Adult Goal: Achieves optimal ventilation and oxygenation Outcome: Progressing Problem: Skin/Tissue Integrity - Adult Goal: Skin integrity remains intact Outcome: Progressing Goal: Incisions, wounds, or drain sites healing without S/S of infection Outcome: Progressing Goal: Oral mucous membranes remain intact Outcome: Progressing * Plan of Care - Rachna Stein RN - 06/07/2025 7:07 AM EDT Problem: Pain - Adult Goal: Verbalizes/displays adequate comfort level or baseline comfort level Outcome: Progressing Problem: Safety-Adult Goal: Free from fall injury Outcome: Progressing Problem: Discharge Planning Goal: Discharge to home or other facility with appropriate resources Outcome: Not Progressing Problem: Altered Nutrient Intake Goal: Nutrient intake appropriate for improving, restoring or maintaining nutritional needs Outcome: Progressing Problem: Chronic Conditions and Co-morbidities Goal: Patient's chronic conditions and co-morbidity symptoms are monitored and maintained or improved Outcome: Progressing Problem: Mobility Goal: Improve mobility to highest level of function Outcome: Progressing Problem: Knowledge Deficit Goal: Patient/family/caregiver demonstrates understanding of disease process, treatment plan, medications, and discharge instructions Outcome: Progressing Problem: Coping Goal: Patient/family/caregiver able to verbalize concerns and demonstrate effective coping strategies Outcome: Progressing Problem: Behavior risks interference with medical technologist prn(s) and/or care Goal: Patient remains free from behavior that interferes with medical devices and/or care and restraints are discontinued as soon as indicated Outcome: Progressing Problem: Respiratory - Adult Goal: Achieves optimal ventilation and oxygenation Outcome: Progressing Problem: Skin/Tissue Integrity - Adult Goal: Skin integrity remains intact Outcome: Progressing Goal: Incisions, wounds, or drain sites healing without S/S of infection Outcome: Progressing Goal: Oral mucous membranes remain intact Outcome: Progressing * Liaison Communication - Shirley Barrios MD - 06/06/2025 8:59 AM EDT Brief Communication Note: Asked by primary team to speak with patient as he was inquiring about potentially increasing his haldol dose. Per chart review, patient used both haldol 2 mg PO PRNs last night at around 2 am and 4 am. He fell asleep after this, and has been calm and in good behavior control though making some inapp ropriate romantic comments towards a particular PCT. On interview, his primary concern is that there is a beautiful PCT who is destroying his life. Hesays that he is trying to make the world a better place, but she is getting in his way. He does notspontaneously mention haldol. He remembers being angry last night and confused, but is ambivalent or cannot recall whether the haldol helped. On cognitive exam, he oriented to place and situation butthinks it is a Sunday in May (today is Sunday). He is able to do DOWB. On mental status exam, he is cooperative but reports his mood as bad because of the PCT. Otherwise, his mental status exam is similar to Dr. Rivas's on 06/05. Of note, the patient's EKG on 06/04 shows a Qtc of 503 with the Baz[place] correction. Patient presentation currently consistent with acute psychosis in the setting of schizoaffective disorder, delirium and/or underlying neurocognitive disorder (not previously diagnosed per records). Given overall behavior control and in the context of prolonged Qtc, there is no urgent need to increase patient's standing haldol at this time. Would recommend continuing current medications and assessing how much haldol the patient needs RECOMMENDATIONS: 1) Please obtain another EKG either today or tomorrow. 2) Please continue standing haldol 1 mg PO QD and 3 mg PO QHS. 3) For mild/moderate agitation, offer haldol 2 mg PO BID PRN. 4) Rest of plan per Dr. Rivas's note from 06/05. Shirley Barrios MD PGY2 - Psychiatry Pager: [phone] * Plan of Care - Rachna Stein RN - 06/06/2025 7:00 AM EDT A&O to person and self. Disoriented to time, pt states it is december or January . Pt w paranoid delusions. VSS, ST on tele. Cont O2 monitoring, RA, no desats. Pt w strong, congested cough, pt declined interventions. Pt c/o pain to low back, lidocaine patches admin per DEC w moderate effect, pt declines 0000 scheduled tylenol. Pt refused 0000 blood sugar check, MD Kaur aware. Tube feeds running per order. Around 020, pt yelling suicide and stating I am going to . PRN haldol admin per MD Kaur. Around 329 pt continuing to be mildly agitated, per MD Kaur second does of PRN haldol admin per DEC. X2 BM this shift. Redness/rash noted on LLE, MD Kaur notified and ketoconazole ordered and admin per DEC. Bed locked and low, call light in reach, bed alarm on, safety maintained. Problem: Pain - Adult Goal: Verbalizes/displays adequate comfort level or baseline comfort level Outcome: Progressing Problem: Safety-Adult Goal: Free from fall injury Outcome: Progressing Problem: Discharge Planning Goal: Discharge to home or other facility with appropriate resources Outcome: Not Progressing Problem: Altered Nutrient Intake Goal: Nutrient intake appropriate for improving, restoring or maintaining nutritional needs Outcome: Progressing Problem: Chronic Conditions and Co-morbidities Goal: Patient's chronic conditions and co-morbidity symptoms are monitored and maintained or improved Outcome: Progressing Problem: Mobility Goal: Improve mobility to highest level of function Outcome: Progressing Problem: Knowledge Deficit Goal: Patient/family/caregiver demonstrates understanding of disease process, treatment plan, medications, and discharge instructions Outcome: Progressing Problem: Coping Goal: Patient/family/caregiver able to verbalize concerns and demonstrate effective coping strategies Outcome: Progressing Problem: Behavior risks interference with medical technologist prn(s) and/or care Goal: Patient remains free from behavior that interferes with medical devices and/or care and restraints are discontinued as soon as indicated Outcome: Progressing Problem: Respiratory - Adult Goal: Achieves optimal ventilation and oxygenation Outcome: Progressing Problem: Skin/Tissue Integrity - Adult Goal: Skin integrity remains intact Outcome: Progressing Goal: Incisions, wounds, or drain sites healing without S/S of infection Outcome: Progressing Goal: Oral mucous membranes remain intact Outcome: Progressing * Plan of Care - Gricelda Cano RN - 06/05/2025 6:23 AM EDT Problem: Pain - Adult Goal: Verbalizes/displays adequate comfort level or baseline comfort level Outcome: Progressing Problem: Safety-Adult Goal: Free from fall injury Outcome: Progressing Problem: Discharge Planning Goal: Discharge to home or other facility with appropriate resources Outcome: Progressing Problem: Altered Nutrient Intake Goal: Nutrient intake appropriate for improving, restoring or maintaining nutritional needs Outcome: Progressing Problem: Chronic Conditions and Co-morbidities Goal: Patient's chronic conditions and co-morbidity symptoms are monitored and maintained or improved Outcome: Progressing Problem: Mobility Goal: Improve mobility to highest level of function Outcome: Progressing Problem: Knowledge Deficit Goal: Patient/family/caregiver demonstrates understanding of disease process, treatment plan, medications, and discharge instructions Outcome: Progressing Problem: Coping Goal: Patient/family/caregiver able to verbalize concerns and demonstrate effective coping strategies Outcome: Progressing Problem: Behavior risks interference with medical technologist prn(s) and/or care Goal: Patient remains free from behavior that interferes with medical devices and/or care and restraints are discontinued as soon as indicated Outcome: Progressing Problem: Respiratory - Adult Goal: Achieves optimal ventilation and oxygenation Outcome: Progressing Problem: Skin/Tissue Integrity - Adult Goal: Skin integrity remains intact Outcome: Progressing Goal: Incisions, wounds, or drain sites healing without S/S of infection Outcome: Progressing Goal: Oral mucous membranes remain intact Outcome: Progressing * Plan of Care - Angel Luis Frausto RN - 06/04/2025 12:57 PM EDT Problem: Pain - Adult Goal: Verbalizes/displays adequate comfort level or baseline comfort level Outcome: Progressing Problem: Safety-Adult Goal: Free from fall injury Outcome: Progressing Problem: Discharge Planning Goal: Discharge to home or other facility with appropriate resources Outcome: Progressing Problem: Altered Nutrient Intake Goal: Nutrient intake appropriate for improving, restoring or maintaining nutritional needs Outcome: Progressing Problem: Chronic Conditions and Co-morbidities Goal: Patient's chronic conditions and co-morbidity symptoms are monitored and maintained or improved Outcome: Progressing Problem: Mobility Goal: Improve mobility to highest level of function Outcome: Progressing Problem: Knowledge Deficit Goal: Patient/family/caregiver demonstrates understanding of disease process, treatment plan, medications, and discharge instructions Outcome: Progressing Problem: Coping Goal: Patient/family/caregiver able to verbalize concerns and demonstrate effective coping strategies Outcome: Progressing Problem: Behavior risks interference with medical technologist prn(s) and/or care Goal: Patient remains free from behavior that interferes with medical devices and/or care and restraints are discontinued as soon as indicated Outcome: Progressing Problem: Respiratory - Adult Goal: Achieves optimal ventilation and oxygenation Outcome: Progressing Problem: Respiratory - Adult Goal: Achieves optimal ventilation and oxygenation Outcome: Progressing Problem: Skin/Tissue Integrity - Adult Goal: Skin integrity remains intact Outcome: Progressing Goal: Incisions, wounds, or drain sites healing without S/S of infection Outcome: Progressing Goal: Oral mucous membranes remain intact Outcome: Progressing * Plan of Care - Nicole Willoughby RN - 06/04/2025 7:41 AM EDT Pt A&O x1, only able to assess orientation to self. Paranoid at end of shift stating that thisisnt a real hospital and that we are his enemies . VSS, NSR/ST on tele. On RA. Pt reporting 8/10 sharp chest pain in his heart and that we slipped him something to make his chest hurt - MD Kaur aware. Reassurance and therapeutic communication provided from this RN w no effect. EKG performed.Pt verbally abusive to staff. COVID +, Droplet+ precautions in place. Tube feeds running per order.Reporting R shoulder and neck pain, scheduled tylenol and ice packs admin w some effect. 1:1 sitter. Pt w suicidal ideation, aware. At end of shift pt spitting on, kicking, and hitting multiple rns and the sitter. PRN haldol admin per DEC. Frequent safety checks performed, safety maintained. Problem: Pain - Adult Goal: Verbalizes/displays adequate comfort level or baseline comfort level Outcome: Progressing Problem: Safety-Adult Goal: Free from fall injury Outcome: Progressing Problem: Discharge Planning Goal: Discharge to home or other facility with appropriate resources Outcome: Progressing Problem: Altered Nutrient Intake Goal: Nutrient intake appropriate for improving, restoring or maintaining nutritional needs Outcome: Progressing Problem: Chronic Conditions and Co-morbidities Goal: Patient's chronic conditions and co-morbidity symptoms are monitored and maintained or improved Outcome: Progressing Problem: Mobility Goal: Improve mobility to highest level of function Outcome: Progressing Problem: Knowledge Deficit Goal: Patient/family/caregiver demonstrates understanding of disease process, treatment plan, medications, and discharge instructions Outcome: Progressing Problem: Coping Goal: Patient/family/caregiver able to verbalize concerns and demonstrate effective coping strategies Outcome: Progressing Problem: Behavior risks interference with medical technologist prn(s) and/or care Goal: Patient remains free from behavior that interferes with medical devices and/or care and restraints are discontinued as soon as indicated Outcome: Progressing Problem: Respiratory - Adult Goal: Achieves optimal ventilation and oxygenation Outcome: Progressing Problem: Skin/Tissue Integrity - Adult Goal: Skin integrity remains intact Outcome: Progressing Goal: Incisions, wounds, or drain sites healing without S/S of infection Outcome: Progressing Goal: Oral mucous membranes remain intact Outcome: Progressing * Plan of Care - Nicole Willoughby RN - 06/03/2025 7:58 AM EDT Pt A&O x1, only able to assess orientation to self. VSS, NSR/ST on tele. 1x desat to mid 80s overnight, pt recovered on own. On RA. COVID +, Droplet+ precautions in place. Reporting R shoulder pain, scheduled tylenol admin per DEC w some effect- pt refused ice packs. Pts IV leaking, removed this shift. RN nurse attempted x2 to get a new IV, she was unsuccessful- IV cefepime was unable to be administered, MD Kaur aware. 1:1 sitter. Frequent safety checks performed. Problem: Pain - Adult Goal: Verbalizes/displays adequate comfort level or baseline comfort level Outcome: Progressing Problem: Safety-Adult Goal: Free from fall injury Outcome: Progressing Problem: Discharge Planning Goal: Discharge to home or other facility with appropriate resources Outcome: Progressing Problem: Altered Nutrient Intake Goal: Nutrient intake appropriate for improving, restoring or maintaining nutritional needs Outcome: Progressing Problem: Chronic Conditions and Co-morbidities Goal: Patient's chronic conditions and co-morbidity symptoms are monitored and maintained or improved Outcome: Progressing Problem: Mobility Goal: Improve mobility to highest level of function Outcome: Progressing Problem: Knowledge Deficit Goal: Patient/family/caregiver demonstrates understanding of disease process, treatment plan, medications, and discharge instructions Outcome: Progressing Problem: Coping Goal: Patient/family/caregiver able to verbalize concerns and demonstrate effective coping strategies Outcome: Progressing Problem: Behavior risks interference with medical technologist prn(s) and/or care Goal: Patient remains free from behavior that interferes with medical devices and/or care and restraints are discontinued as soon as indicated Outcome: Progressing Problem: Respiratory - Adult Goal: Achieves optimal ventilation and oxygenation Outcome: Progressing Problem: Skin/Tissue Integrity - Adult Goal: Skin integrity remains intact Outcome: Progressing Goal: Incisions, wounds, or drain sites healing without S/S of infection Outcome: Progressing Goal: Oral mucous membranes remain intact Outcome: Progressing * IV Therapy Notes - Kadie Morgan RN - 06/03/2025 12:47 AM EDT Unable to cannulate vein for PIV X2. Patient agitated -verbally and pulling arm away. 2 staff present during PIV insertion process. * Plan of Care - Jaspreet Mai RN - 06/02/2025 6:14 PM EDT Alert, confused. + anxiety, + paranoia, intermittently make inappropriate comments. VSS. NSR on tele. On RA with continuous O2 monitor. X1 large/loose BM this shift. Purewick in place. Cyclic TF Glucerna 1.5 restarted at 1800. X2 turn/repo. 1:1 sitter at bedside. Safety maintained. * Plan of Care - Nicole Willoughby RN - 06/01/2025 7:50 AM EDT Pt alert, unable to assess orientation. NSR/ST on tele. BP elevated, pt moving arm during BP. OtherVSS, on RA. Strong congested cough present. Gtube in place, Jevity 1.5 running at goal, pt tolerating well. No BM. Pt expressing paranoid delusions and yelling at staff. Fingersticks per order. 1:[address] Frequent safety checks performed, safety maintained. Problem: Pain - Adult Goal: Verbalizes/displays adequate comfort level or baseline comfort level Outcome: Progressing Problem: Safety-Adult Goal: Free from fall injury Outcome: Progressing Problem: Discharge Planning Goal: Discharge to home or other facility with appropriate resources Outcome: Progressing Problem: Altered Nutrient Intake Goal: Nutrient intake appropriate for improving, restoring or maintaining nutritional needs Outcome: Progressing Problem: Chronic Conditions and Co-morbidities Goal: Patient's chronic conditions and co-morbidity symptoms are monitored and maintained or improved Outcome: Progressing Problem: Mobility Goal: Improve mobility to highest level of function Outcome: Progressing Problem: Knowledge Deficit Goal: Patient/family/caregiver demonstrates understanding of disease process, treatment plan, medications, and discharge instructions Outcome: Progressing Problem: Coping Goal: Patient/family/caregiver able to verbalize concerns and demonstrate effective coping strategies Outcome: Progressing Problem: Behavior risks interference with medical technologist prn(s) and/or care Goal: Patient remains free from behavior that interferes with medical devices and/or care and restraints are discontinued as soon as indicated Outcome: Progressing Problem: Respiratory - Adult Goal: Achieves optimal ventilation and oxygenation Outcome: Progressing Problem: Skin/Tissue Integrity - Adult Goal: Skin integrity remains intact Outcome: Progressing Goal: Incisions, wounds, or drain sites healing without S/S of infection Outcome: Progressing Goal: Oral mucous membranes remain intact Outcome: Progressing * Plan of Care - Jaspreet Mai RN - 05/31/2025 6:13 PM EDT Alert, confused. + agitation, + paranoia, + delusions, + restlessness, + anxiety throughout shift. Frequently refusing meds/care. NSR on tele. On RA with continuous O2 monitor. X2 turn/repo, lift OOB. 1:1 sitter at bedside. Safety maintained. * Plan of Care - Manohar Meza RN - 05/31/2025 12:05 AM EDT Assumed care from 0700 to 2300 Problem: Pain - Adult Goal: Verbalizes/displays adequate comfort level or baseline comfort level Outcome: Not Progressing Problem: Safety-Adult Goal: Free from fall injury Outcome: Not Progressing Problem: Discharge Planning Goal: Discharge to home or other facility with appropriate resources Outcome: Not Progressing Problem: Altered Nutrient Intake Goal: Nutrient intake appropriate for improving, restoring or maintaining nutritional needs Outcome: Not Progressing Problem: Chronic Conditions and Co-morbidities Goal: Patient's chronic conditions and co-morbidity symptoms are monitored and maintained or improved Outcome: Not Progressing Problem: Behavior risks interference with medical technologist prn(s) and/or care Goal: Patient remains free from behavior that interferes with medical devices and/or care and restraints are discontinued as soon as indicated Outcome: Not Progressing Problem: Respiratory - Adult Goal: Achieves optimal ventilation and oxygenation Outcome: Not Progressing Problem: Skin/Tissue Integrity - Adult Goal: Skin integrity remains intact Outcome: Not Progressing * Plan of Care - Taylor Verde PT - 05/30/2025 8:33 AM EDT PHYSICAL THERAPY CONTACT NOTE Rehabilitation Services - Inpatient Physical Therapy Chest PT consult received and appreciated. Chart reviewed and case discussed with RN. Pt continues to demonstrate noncompliance w/ care duringadmission. Per RN note, pt continues to have congested cough however spO2 stable on RA. Additionally per discussion w/ RN pt has been able to perform strong cough and clear secretions. Continue to rec ommend regular mobility including OOBTC and continue pulmonary medications as ordered per MD to assist w/ pulmonary hygiene. Acute PT will f/u to reassess appropriateness of CPT consult pending improved behaviors. Please page promotions assistant sales marketing PT with questions or concerns. Time: 946 Physical Therapist Name: Taylor Verde PT, DPT #[id number] Physical Therapist Pager: [phone] For questions please check the patient???s care team for the most updated PT contact information * Plan of Care - Dulce Cheung RN - 05/28/2025 5:42 PM EDT Mr. Husseins was able to be taken off of the face tent and maintained 90%- 92% on 4L NC. Neuro status wax/wanes with intermittent periods of being awake and sleeping. He remains easily arouseable to light stimulation throughout shift. He is coughing but has not produced sputum throughout shift. 1:1sitter at bedside and door open. Restraints remain on as patient continues to try to remove oxygen.Per MD tube feeds are currently off due to patient vomiting tube feeds overnight. Q2h turns in place, heel offload boots on bilaterally. Problem: Safety-Adult Goal: Free from fall injury 05/28/20251732 by Dulce Cheung RN Outcome: Progressing 05/28/20251731 by Dulce Cheung RN Outcome: Progressing Problem: Mobility Goal: Improve mobility to highest level of function 05/28/20251732 by Dulce Cheung RN Outcome: Not Progressing 05/28/20251731 by Dulce Cheung RN Outcome: Not Progressing Problem: Behavior risks interference with medical technologist prn(s) and/or care Goal: Patient remains free from behavior that interferes with medical devices and/or care and restraints are discontinued as soon as indicated 05/28/20251732 by Dulce Cheung RN Outcome: Progressing 05/28/20251731 by Dulce Cheung RN Outcome: Progressing Problem: Respiratory - Adult Goal: Achieves optimal ventilation and oxygenation Outcome: Progressing Problem: Skin/Tissue Integrity - Adult Goal: Skin integrity remains intact Outcome: Progressing Goal: Oral mucous membranes remain intact Outcome: Progressing * Significant Event - Rosalinda Montano RN - 2025 10:21 PM EDT Trigger called for increased O2 requirement and tachycardia. Pt placed on telemetry monitoring in addition to continuous O2. RASS -4 to -5. RT to bedside. MD Jimi Anderson and MD Sebastian Okeefe at bedside. TF stopped, see flowsheets. RT placed patient on 100% face tent and 4L NC, pt sattingmid 90s. + Rales bilaterally. RT attempted to NT suction patient, pt vomit TF colored liquid x1, MDaware. Labs per order, see results. EKG obtained. Pt transported off unit to CT with resource and STAT RNs, see chart review for results. Upon returning from CT pt appears more alert, RASS 0 to -1. Acknowledges it is his birthday. HR remains 130s, MD Anderson and Maldonado aware. Per MD Okeefe, okay to give all scheduled meds as ordered. Plan: NPO overnight, IVF, continue IV abx, continue nebs * Significant Event - Sebastian Okeefe MD - 2025 8:43 PM EDT Images from the original note were not included. [facility] Department of Medicine [facility] Trigger Note Patient: Carter Raymundo Attending of Record: Rabia Velasco MD Clinician called to bedside by primary RN for concern for worsening hypoxia and unresponsiveness. Subjective: Arrived at bedside to patient with face mask in place. Minimally responsive to pain with blood draw, not responsive to sternal rub. Objective: Initial vital signs: T: 99.2 F, HR 132, BP: 135/78, O2: 94% on 10L face tent + 4L NC Physical exam notable for: GENERAL: ill--apearing PULM: Rales bilaterally, face mask and NC in place CV: Increased rate, normal rhythm NEURO: minimally responsive to painful stimuli Clinical Assessment: Carter Raymundo is a 69 y.o. male with a relevant past medical history of HTN, CKD, schizoaffectivedisorder, and drug-induced parkinsonism, who initially presented with unresponsiveness, asphaia, and possible left facial droop concerning for stroke versus TME, but with unremarkable workup. Admitted to medicine for monitoring and re-initiation of clozapine dosing, now medically stable pending inpatient psych placement for decompensated schizoaffective disorder. Triggered for worsening acute hypoxic respiratory failure. Recently found to be COVID positive and to have a consolidation on CXR concerning for pneumonia and on antibiotics with cefepime/vancomycin.Also noted to be largely unresponsive, only slightly reactive to pain. Per chart review has had multiple similar episodes without clear triggers and has been felt to be secondary to acute delirium superimposed on known decompensated schizoaffective disorder. Suspect the worsening O2 demand was likely due to unresponsiveness resulting in him not clearing secretions. He spontaneously woke up with improvements in his O2 demand. Interventions and Interpretations: - CT head given abrupt change in mental status > no bleed - CTPE > without evidence of PE, consolidation likely infection - VBG > pH 7.47, pCO2 41 > reassuring - NPO overnight, hold tube feeds overnight given concern for emesis and aspiration - EKG with tachycardia > will give 500cc bolus as NPO overnight and holding tube feeds as potentially hypovolemic - Antibiotics currently appropriate with cefepime/vancomycin and not hemodynamically unstable - Continue with scheduled duo nebs - One time dexamethasone 6mg, day team to determine if plan to continue - ICU consulted, appropriate level of care at present At the conclusion of this trigger, the patient's disposition will be to: remain at current level ofcare This trigger was staffed with attending Dr. Hernandez. Sebastian Okeefe MD Cosigned by Chuy Hernandez MD at 05/28/2025 7:16 AM EDT * Plan of Care - Gricelda Schultz RN - 2025 7:53 PM EDT Unable to assess orientation. Pt able to state that today is his birthday. Intermittently somnolent. Pt on 50% face tent maintaining sat >92% t/o majority of shift with occasional desats noted. Able to NT suction pt for large amounts of thick white/green secretions. Pt intermittently refusing bythrashing head. Pt then with desat on continuous O2 monitoring to 83% on 50% face tent. Face tent increased to 70% and scheduled neb admin. Pt placed on 2L NC in addition to face tent. Respiratory therapist and MD to bedside. Pt triggered for increased O2 requirement and report given to oncoming RN. 1:[address], frequent safety checks made. * Plan of Care - Emeli Pham RN - 2025 7:09 AM EDT Alert, MEENA orientation. Endorsing paranoid delusions, stating unable to trust staff, emotional support provided with some effect. Pt also endorsing SI, expressing he would try to jump out the window if given the opportunity, MD Ceci Anderson aware, ordered for one-time PO haldol, given per DEC w/minimal effect. Tolerating Tfs running at goal. HR 110s-120s, denies CP/palps, aware, no new orders. Hoarse voice with congested cough, PRN guaifenesin given per DEC. Cont spo2 monitoring in place, satting primarily mid-high 90s, occasional desats to low 80s, recovers spontaneously without intervention. Bilat soft wrist restraints in place for safety. 1:1 sitter. Utilizing male purewick, voiding concentrated urine. No BM this shift. Frequent rounding performed, safety maintained. * Plan of Care - Aisha Will RN - 05/26/2025 7:04 PM EDT Pt alert, unable to assess orientation. Droplet precautions, covid+. RA with cont O2 monitoring. Ptplaced in soft wrist restraints at beginning of shift. Trialed pt off restraints for about and hourand a half, pt was understanding and cooperative, 10 minutes later pt removed his IV. New IV placedand aware. Multiple Bms this shift. Pt expressing paranoid delusions. TF running per order. Pt refusing some care during shift. 1:1 sitter. Male purewick in place. Frequent checks, safety maintained. Problem: Pain - Adult Goal: Verbalizes/displays adequate comfort level or baseline comfort level Outcome: Progressing Problem: Safety-Adult Goal: Free from fall injury Outcome: Progressing Problem: Discharge Planning Goal: Discharge to home or other facility with appropriate resources Outcome: Progressing Problem: Altered Nutrient Intake Goal: Nutrient intake appropriate for improving, restoring or maintaining nutritional needs Outcome: Progressing Problem: Chronic Conditions and Co-morbidities Goal: Patient's chronic conditions and co-morbidity symptoms are monitored and maintained or improved Outcome: Progressing Problem: Mobility Goal: Improve mobility to highest level of function Outcome: Progressing Problem: Knowledge Deficit Goal: Patient/family/caregiver demonstrates understanding of disease process, treatment plan, medications, and discharge instructions Outcome: Progressing Problem: Coping Goal: Patient/family/caregiver able to verbalize concerns and demonstrate effective coping strategies Outcome: Progressing Problem: Behavior risks interference with medical technologist prn(s) and/or care Goal: Patient remains free from behavior that interferes with medical devices and/or care and restraints are discontinued as soon as indicated Outcome: Progressing * Plan of Care - Emeli Pham RN - 05/26/2025 4:27 AM EDT Problem: Pain - Adult Goal: Verbalizes/displays adequate comfort level or baseline comfort level Outcome: Progressing Problem: Safety-Adult Goal: Free from fall injury Outcome: Progressing Problem: Discharge Planning Goal: Discharge to home or other facility with appropriate resources Outcome: Progressing Problem: Altered Nutrient Intake Goal: Nutrient intake appropriate for improving, restoring or maintaining nutritional needs Outcome: Progressing Problem: Chronic Conditions and Co-morbidities Goal: Patient's chronic conditions and co-morbidity symptoms are monitored and maintained or improved Outcome: Progressing Problem: Mobility Goal: Improve mobility to highest level of function Outcome: Progressing Problem: Knowledge Deficit Goal: Patient/family/caregiver demonstrates understanding of disease process, treatment plan, medications, and discharge instructions Outcome: Progressing Problem: Coping Goal: Patient/family/caregiver able to verbalize concerns and demonstrate effective coping strategies Outcome: Progressing Problem: Behavior risks interference with medical technologist prn(s) and/or care Goal: Patient remains free from behavior that interferes with medical devices and/or care and restraints are discontinued as soon as indicated Outcome: Progressing * Plan of Care - Manda Penn RN - 05/25/2025 11:16 AM EDT Problem: Pain - Adult Goal: Verbalizes/displays adequate comfort level or baseline comfort level Outcome: Progressing Problem: Safety-Adult Goal: Free from fall injury Outcome: Progressing Problem: Discharge Planning Goal: Discharge to home or other facility with appropriate resources Outcome: Progressing Problem: Altered Nutrient Intake Goal: Nutrient intake appropriate for improving, restoring or maintaining nutritional needs Outcome: Progressing Problem: Chronic Conditions and Co-morbidities Goal: Patient's chronic conditions and co-morbidity symptoms are monitored and maintained or improved Outcome: Progressing Problem: Mobility Goal: Improve mobility to highest level of function Outcome: Progressing Problem: Knowledge Deficit Goal: Patient/family/caregiver demonstrates understanding of disease process, treatment plan, medications, and discharge instructions Outcome: Progressing Problem: Coping Goal: Patient/family/caregiver able to verbalize concerns and demonstrate effective coping strategies Outcome: Progressing Problem: Behavior risks interference with medical technologist prn(s) and/or care Goal: Patient remains free from behavior that interferes with medical devices and/or care and restraints are discontinued as soon as indicated Outcome: Progressing * Plan of Care - Rachna Stein RN - 05/24/2025 8:03 PM EDT Pt alert this shift, unable to assess orientation status. Pt endorsing paranoid delusions this shift. Pt alert and calm at start of shift. Around 1200, pt spitting on staff, yelling, throwing juice, and attempting to his staff, unable to redirect/deescalate with other interventions. R and L soft wrist restraints placed, order obtained, IM haldol admin per DEC. Around 1300 pt c/o pain to neck, lidocaine patches admin per DEC. Pt continuing to yell/spit at staff. Around 1630, pt increasingly agitated, IM haldol admin per DEC. Around 1830, PIV placed, IV remdesivir admin per DEC. TF running per order, see flowsheets, stopped at 1000, restarted at 1800. 1:1 sitter maintained. Pt COVID +, Droplet Plus precautions placed this shift. Continuous mattress in place. Male purwick in place. X1 BM this shift. Bed locked and low, bed alarm on, frequent safety checks performed. Problem: Pain - Adult Goal: Verbalizes/displays adequate comfort level or baseline comfort level Outcome: Not Progressing Problem: Safety-Adult Goal: Free from fall injury Outcome: Progressing Problem: Discharge Planning Goal: Discharge to home or other facility with appropriate resources Outcome: Not Progressing Problem: Altered Nutrient Intake Goal: Nutrient intake appropriate for improving, restoring or maintaining nutritional needs Outcome: Not Progressing Problem: Chronic Conditions and Co-morbidities Goal: Patient's chronic conditions and co-morbidity symptoms are monitored and maintained or improved Outcome: Not Progressing Problem: Mobility Goal: Improve mobility to highest level of function Outcome: Not Progressing Problem: Knowledge Deficit Goal: Patient/family/caregiver demonstrates understanding of disease process, treatment plan, medications, and discharge instructions Outcome: Not Progressing Problem: Coping Goal: Patient/family/caregiver able to verbalize concerns and demonstrate effective coping strategies Outcome: Not Progressing Problem: Behavior risks interference with medical technologist prn(s) and/or care Goal: Patient remains free from behavior that interferes with medical devices and/or care and restraints are discontinued as soon as indicated Outcome: Not Progressing * Plan of Care - Rachna Stein RN - 05/23/2025 7:00 PM EDT Pt alert, unable to assess orientation status. Pt endorsing paranoid delusions this shift. Pt awakeand calm at start of shift. Around 1300, pt attempting to get out of bed, not redirectable, behavior health emergency called, staff able to get pt back in bed, behavior health emergency cancelled. Around 1330, pt attempting to get out of bed again, staff able to return pt to bed. Pt declining mealsthroughout this shift. Pt intermittently yelling at staff/sitter. Around 1700, pt spitting/yelling at staff, reassurance of safety/providing a relaxing environment attempted to calm pt without effect. Around 1815, pt spitting/yelling/attempting to hit and grab staff, MD strickland notified, pt placed in bilateral soft wrist restraints, order obtained. Tube feeds Jevity 1.5 started and running at goal. 1:1 sitter maintained. Continuous mattress in place. Male purwick in place. Bed locked and low, bed alarm on, frequent safety checks performed. Problem: Pain - Adult Goal: Verbalizes/displays adequate comfort level or baseline comfort level Outcome: Not Progressing Problem: Safety-Adult Goal: Free from fall injury Outcome: Progressing Problem: Discharge Planning Goal: Discharge to home or other facility with appropriate resources Outcome: Not Progressing Problem: Altered Nutrient Intake Goal: Nutrient intake appropriate for improving, restoring or maintaining nutritional needs Outcome: Not Progressing Problem: Chronic Conditions and Co-morbidities Goal: Patient's chronic conditions and co-morbidity symptoms are monitored and maintained or improved Outcome: Progressing Problem: Mobility Goal: Improve mobility to highest level of function Outcome: Not Progressing Problem: Knowledge Deficit Goal: Patient/family/caregiver demonstrates understanding of disease process, treatment plan, medications, and discharge instructions Outcome: Not Progressing Problem: Coping Goal: Patient/family/caregiver able to verbalize concerns and demonstrate effective coping strategies Outcome: Not Progressing Problem: Behavior risks interference with medical technologist prn(s) and/or care Goal: Patient remains free from behavior that interferes with medical devices and/or care and restraints are discontinued as soon as indicated Outcome: Not Progressing * Plan of Care - Nicole Willoughby RN - 05/23/2025 7:36 AM EDT Pt alert, refusing to answer orientation questions. VSS, on RA. Scoring a 4 on Cisneros-Bakers FACES scale. Strong congested cough present. Gtube in place, Jevity 1.5 running at goal, pt tolerating well.Pt aggressive, combative, verbally abusive, kicking, hitting, and spitting at staff throughout the shift. At 0530 pt attempting to get out of bed, spitting at, and swinging at staff, security called and pt imed. 1:[address] Frequent safety checks performed, safety maintained. Problem: Pain - Adult Goal: Verbalizes/displays adequate comfort level or baseline comfort level Outcome: Progressing Problem: Safety-Adult Goal: Free from fall injury Outcome: Progressing Problem: Discharge Planning Goal: Discharge to home or other facility with appropriate resources Outcome: Not Progressing Problem: Altered Nutrient Intake Goal: Nutrient intake appropriate for improving, restoring or maintaining nutritional needs Outcome: Progressing Problem: Chronic Conditions and Co-morbidities Goal: Patient's chronic conditions and co-morbidity symptoms are monitored and maintained or improved Outcome: Progressing Problem: Mobility Goal: Improve mobility to highest level of function Outcome: Not Progressing Problem: Knowledge Deficit Goal: Patient/family/caregiver demonstrates understanding of disease process, treatment plan, medications, and discharge instructions Outcome: Progressing Problem: Coping Goal: Patient/family/caregiver able to verbalize concerns and demonstrate effective coping strategies Outcome: Not Progressing Problem: Behavior risks interference with medical technologist prn(s) and/or care Goal: Patient remains free from behavior that interferes with medical devices and/or care and restraints are discontinued as soon as indicated Outcome: Not Progressing * Plan of Care - Rachna Stein RN - 05/22/2025 6:55 PM EDT Pt alert, unable to assess orientation status. Pt endorsing paranoid delusions this shift. Pt calm this shift, intermittently refusing care, remains free from physical violent behavior this shift, intermittently making inappropriate comments to sitter. No BM this shift. PEG tube in place. 1:1 sitter maintained. Poor appetite this shift. Continuous mattress in place. Pt declined moving to chair this shift. Bed locked and low, bed alarm on, frequent safety checks performed. Problem: Pain - Adult Goal: Verbalizes/displays adequate comfort level or baseline comfort level Outcome: Not Progressing Problem: Safety-Adult Goal: Free from fall injury Outcome: Progressing Problem: Discharge Planning Goal: Discharge to home or other facility with appropriate resources Outcome: Not Progressing Problem: Altered Nutrient Intake Goal: Nutrient intake appropriate for improving, restoring or maintaining nutritional needs Outcome: Progressing Problem: Chronic Conditions and Co-morbidities Goal: Patient's chronic conditions and co-morbidity symptoms are monitored and maintained or improved Outcome: Progressing Problem: Mobility Goal: Improve mobility to highest level of function Outcome: Not Progressing Problem: Knowledge Deficit Goal: Patient/family/caregiver demonstrates understanding of disease process, treatment plan, medications, and discharge instructions Outcome: Progressing Problem: Coping Goal: Patient/family/caregiver able to verbalize concerns and demonstrate effective coping strategies Outcome: Not Progressing Problem: Behavior risks interference with medical technologist prn(s) and/or care Goal: Patient remains free from behavior that interferes with medical devices and/or care and restraints are discontinued as soon as indicated Outcome: Progressing * Care Coordination Note - Demetra White RN - 05/22/2025 12:24 PM EDT Images from the original note were not included. Case Management Continued Stay Note Has patient been discussed in MDR?:Yes Estimated Date of Discharge: medically cleared; pending inpatient psych bed Plan: I/P psych; section 12; 1:1 Anticipated barriers (Medical & Non-Medical), if any: PEG/TF Comments: Admitted from [facility] were he was for STR. Current plan is discharge to inpatient psych; on section 12, medically cleared. Psych team following. TF ordered via peg. CM following. Demetra White RNCM [id number] * Plan of Care - Manohar Meza RN - 05/22/2025 6:42 AM EDT Problem: Pain - Adult Goal: Verbalizes/displays adequate comfort level or baseline comfort level Outcome: Not Progressing Problem: Safety-Adult Goal: Free from fall injury Outcome: Not Progressing Problem: Discharge Planning Goal: Discharge to home or other facility with appropriate resources Outcome: Not Progressing Problem: Altered Nutrient Intake Goal: Nutrient intake appropriate for improving, restoring or maintaining nutritional needs Outcome: Not Progressing Problem: Chronic Conditions and Co-morbidities Goal: Patient's chronic conditions and co-morbidity symptoms are monitored and maintained or improved Outcome: Not Progressing Problem: Mobility Goal: Improve mobility to highest level of function Outcome: Not Progressing Problem: Knowledge Deficit Goal: Patient/family/caregiver demonstrates understanding of disease process, treatment plan, medications, and discharge instructions Outcome: Not Progressing Problem: Coping Goal: Patient/family/caregiver able to verbalize concerns and demonstrate effective coping strategies Outcome: Not Progressing Problem: Behavior risks interference with medical technologist prn(s) and/or care Goal: Patient remains free from behavior that interferes with medical devices and/or care and restraints are discontinued as soon as indicated Outcome: Not Progressing * Plan of Care - Yu Gunderson RN - 05/21/2025 6:17 PM EDT Unable to assess orientation level pt refusing to answer. Afternoon lactulose held per pt having large loose BM's MD Starks aware. Pt becoming combative and refusing tube feeds MD Lara made aware. Problem: Pain - Adult Goal: Verbalizes/displays adequate comfort level or baseline comfort level Outcome: Progressing Problem: Safety-Adult Goal: Free from fall injury Outcome: Progressing Problem: Discharge Planning Goal: Discharge to home or other facility with appropriate resources Outcome: Progressing Problem: Altered Nutrient Intake Goal: Nutrient intake appropriate for improving, restoring or maintaining nutritional needs Outcome: Progressing Problem: Chronic Conditions and Co-morbidities Goal: Patient's chronic conditions and co-morbidity symptoms are monitored and maintained or improved Outcome: Progressing Problem: Mobility Goal: Improve mobility to highest level of function Outcome: Progressing Problem: Knowledge Deficit Goal: Patient/family/caregiver demonstrates understanding of disease process, treatment plan, medications, and discharge instructions Outcome: Progressing Problem: Coping Goal: Patient/family/caregiver able to verbalize concerns and demonstrate effective coping strategies Outcome: Progressing Problem: Behavior risks interference with medical technologist prn(s) and/or care Goal: Patient remains free from behavior that interferes with medical devices and/or care and restraints are discontinued as soon as indicated Outcome: Progressing * Plan of Care - Yu Gunderson RN - 05/20/2025 5:23 PM EDT At apporox 1205 pt witnessed by sitter trying to throw himself out of bed. MD Starks and MD Luna bedside pt got IM ativan and placed in 4 point restraints. Problem: Pain - Adult Goal: Verbalizes/displays adequate comfort level or baseline comfort level Outcome: Progressing Problem: Safety-Adult Goal: Free from fall injury Outcome: Progressing Problem: Discharge Planning Goal: Discharge to home or other facility with appropriate resources Outcome: Progressing Problem: Altered Nutrient Intake Goal: Nutrient intake appropriate for improving, restoring or maintaining nutritional needs Outcome: Progressing Problem: Chronic Conditions and Co-morbidities Goal: Patient's chronic conditions and co-morbidity symptoms are monitored and maintained or improved Outcome: Progressing Problem: Mobility Goal: Improve mobility to highest level of function Outcome: Progressing Problem: Knowledge Deficit Goal: Patient/family/caregiver demonstrates understanding of disease process, treatment plan, medications, and discharge instructions Outcome: Progressing Problem: Coping Goal: Patient/family/caregiver able to verbalize concerns and demonstrate effective coping strategies Outcome: Progressing Problem: Behavior risks interference with medical technologist prn(s) and/or care Goal: Patient remains free from behavior that interferes with medical devices and/or care and restraints are discontinued as soon as indicated Outcome: Progressing * Plan of Care - Dulce Cheung RN - 05/19/2025 5:54 PM EDT Mr Raymundo continues to wax and wane with periods of calm truncated by periods of agitation. He remains very suspicious of staff members and believes workers and hospital to be made up in order to harm him. He is intermittently redirectable verbally but did require ativan once after throwinga cup ofjuice at staff members. 1:1 sitter remains at bedside throughout shift. Items that can potentially used as projectiles or are overall unsafe have been removed from room. Frequent safety checks performed by this RN. Problem: Safety-Adult Goal: Free from fall injury Outcome: Progressing Problem: Altered Nutrient Intake Goal: Nutrient intake appropriate for improving, restoring or maintaining nutritional needs Outcome: Not Progressing Problem: Coping Goal: Patient/family/caregiver able to verbalize concerns and demonstrate effective coping strategies Outcome: Progressing * Plan of Care - Dulce Cheung RN - 05/18/2025 7:16 PM EDT Patient mostly calm today and able to stay out of restraints for most of day. See pt observation and MD communication flowsheets for more details. Problem: Safety-Adult Goal: Free from fall injury 05/18/20251915 by Dulce Cheung RN Outcome: Progressing 05/18/20251915 by Dulce Cheung RN Outcome: Progressing 05/18/20251851 by Dulce Cheung RN Outcome: Progressing Problem: Chronic Conditions and Co-morbidities Goal: Patient's chronic conditions and co-morbidity symptoms are monitored and maintained or improved Outcome: Progressing Problem: Behavior risks interference with medical technologist prn(s) and/or care Goal: Patient remains free from behavior that interferes with medical devices and/or care and restraints are discontinued as soon as indicated 05/18/20251915 by Dulce Cheung RN Outcome: Progressing 05/18/20251915 by Dulce Cheung RN Outcome: Not Progressing 05/18/2025 1852 by Dulce Cheung RN Outcome: Progressing Problem: Coping Goal: Patient/family/caregiver able to verbalize concerns and demonstrate effective coping strategies 05/18/2025 1916 by Dulce Cheung RN Outcome: Not Progressing 05/18/20251851 by Dulce Cheung RN Outcome: Not Progressing * Plan of Care - Param Beltrán RN - 05/17/2025 11:53 PM EDT Problem: Pain - Adult Goal: Verbalizes/displays adequate comfort level or baseline comfort level Outcome: Not Progressing Problem: Safety-Adult Goal: Free from fall injury Outcome: Not Progressing Problem: Discharge Planning Goal: Discharge to home or other facility with appropriate resources Outcome: Not Progressing Problem: Altered Nutrient Intake Goal: Nutrient intake appropriate for improving, restoring or maintaining nutritional needs Outcome: Not Progressing Problem: Chronic Conditions and Co-morbidities Goal: Patient's chronic conditions and co-morbidity symptoms are monitored and maintained or improved Outcome: Not Progressing Problem: Mobility Goal: Improve mobility to highest level of function Outcome: Not Progressing Problem: Knowledge Deficit Goal: Patient/family/caregiver demonstrates understanding of disease process, treatment plan, medications, and discharge instructions Outcome: Not Progressing Problem: Coping Goal: Patient/family/caregiver able to verbalize concerns and demonstrate effective coping strategies Outcome: Not Progressing Problem: Behavior risks interference with medical technologist prn(s) and/or care Goal: Patient remains free from behavior that interferes with medical devices and/or care and restraints are discontinued as soon as indicated Outcome: Not Progressing * Plan of Care - Jaspreet Mai RN - 05/17/2025 6:12 PM EDT Pt calm/agreeable with med passes this shift. Intermittently yelling out at staff, asking for staffto call him an ambulance. Unable to elaborate why he needs ambulance. 1:1 sitter at bedside. Safetymaintained. Problem: Pain - Adult Goal: Verbalizes/displays adequate comfort level or baseline comfort level Outcome: Progressing Problem: Safety-Adult Goal: Free from fall injury Outcome: Progressing Problem: Discharge Planning Goal: Discharge to home or other facility with appropriate resources Outcome: Progressing Problem: Altered Nutrient Intake Goal: Nutrient intake appropriate for improving, restoring or maintaining nutritional needs Outcome: Progressing Problem: Chronic Conditions and Co-morbidities Goal: Patient's chronic conditions and co-morbidity symptoms are monitored and maintained or improved Outcome: Progressing Problem: Mobility Goal: Improve mobility to highest level of function Outcome: Progressing Problem: Knowledge Deficit Goal: Patient/family/caregiver demonstrates understanding of disease process, treatment plan, medications, and discharge instructions Outcome: Progressing Problem: Coping Goal: Patient/family/caregiver able to verbalize concerns and demonstrate effective coping strategies Outcome: Progressing Problem: Behavior risks interference with medical technologist prn(s) and/or care Goal: Patient remains free from behavior that interferes with medical devices and/or care and restraints are discontinued as soon as indicated Outcome: Progressing * Plan of Care - Param Beltrán RN - 05/17/2025 1:27 AM EDT Problem: Pain - Adult Goal: Verbalizes/displays adequate comfort level or baseline comfort level Outcome: Not Progressing Problem: Safety-Adult Goal: Free from fall injury Outcome: Not Progressing Problem: Discharge Planning Goal: Discharge to home or other facility with appropriate resources Outcome: Not Progressing Problem: Altered Nutrient Intake Goal: Nutrient intake appropriate for improving, restoring or maintaining nutritional needs Outcome: Not Progressing Problem: Chronic Conditions and Co-morbidities Goal: Patient's chronic conditions and co-morbidity symptoms are monitored and maintained or improved Outcome: Not Progressing Problem: Mobility Goal: Improve mobility to highest level of function Outcome: Not Progressing Problem: Knowledge Deficit Goal: Patient/family/caregiver demonstrates understanding of disease process, treatment plan, medications, and discharge instructions Outcome: Not Progressing Problem: Coping Goal: Patient/family/caregiver able to verbalize concerns and demonstrate effective coping strategies Outcome: Not Progressing Problem: Behavior risks interference with medical technologist prn(s) and/or care Goal: Patient remains free from behavior that interferes with medical devices and/or care and restraints are discontinued as soon as indicated Outcome: Not Progressing * Plan of Care - Jaspreet Mai RN - 05/16/2025 5:52 PM EDT Pt agitated/angry at staff intermittently throughout shift. After 3 separate pt education/de-escalation attempts, pt amendable to receiving AM meds thru G-tube. By approx 1500, pt agitated, aggressive, kicking/spitting at staff, throwing cups at staff, MD Starks and security called to bedside, PRN IM ativan 0.5 mg administered. 1:1 sitter at bedside throughout shift. Safety maintained. Problem: Pain - Adult Goal: Verbalizes/displays adequate comfort level or baseline comfort level Outcome: Progressing Problem: Safety-Adult Goal: Free from fall injury Outcome: Progressing Problem: Discharge Planning Goal: Discharge to home or other facility with appropriate resources Outcome: Progressing Problem: Altered Nutrient Intake Goal: Nutrient intake appropriate for improving, restoring or maintaining nutritional needs Outcome: Progressing Problem: Chronic Conditions and Co-morbidities Goal: Patient's chronic conditions and co-morbidity symptoms are monitored and maintained or improved Outcome: Progressing Problem: Knowledge Deficit Goal: Patient/family/caregiver demonstrates understanding of disease process, treatment plan, medications, and discharge instructions Outcome: Progressing Problem: Coping Goal: Patient/family/caregiver able to verbalize concerns and demonstrate effective coping strategies Outcome: Progressing Problem: Behavior risks interference with medical technologist prn(s) and/or care Goal: Patient remains free from behavior that interferes with medical devices and/or care and restraints are discontinued as soon as indicated Outcome: Progressing * Plan of Care - Param Beltrán RN - 05/15/2025 8:33 PM EDT Problem: Pain - Adult Goal: Verbalizes/displays adequate comfort level or baseline comfort level Outcome: Not Progressing Problem: Safety-Adult Goal: Free from fall injury Outcome: Not Progressing Problem: Discharge Planning Goal: Discharge to home or other facility with appropriate resources Outcome: Not Progressing Problem: Altered Nutrient Intake Goal: Nutrient intake appropriate for improving, restoring or maintaining nutritional needs Outcome: Not Progressing Problem: Chronic Conditions and Co-morbidities Goal: Patient's chronic conditions and co-morbidity symptoms are monitored and maintained or improved Outcome: Not Progressing Problem: Mobility Goal: Improve mobility to highest level of function Outcome: Not Progressing Problem: Knowledge Deficit Goal: Patient/family/caregiver demonstrates understanding of disease process, treatment plan, medications, and discharge instructions Outcome: Not Progressing Problem: Coping Goal: Patient/family/caregiver able to verbalize concerns and demonstrate effective coping strategies Outcome: Not Progressing Problem: Behavior risks interference with medical technologist prn(s) and/or care Goal: Patient remains free from behavior that interferes with medical devices and/or care and restraints are discontinued as soon as indicated Outcome: Not Progressing * Plan of Care - Dulce Cheung RN - 05/15/2025 6:28 PM EDT Patient remains agitated and paranoid throughout shift w/ some improvement after administration of ativan and applying wrist restraints. He has made several inapropriate comments toward staff membersof sexual and racial language. Verbal de scalation has not been successful for calming patient. 1:1sitter at bedside throughput shift and equipment moved out of range for patient to grab. Psych and Medical team updated about patient progress throughout the shift. At [facility] 1845, patient began thrashing around in bed and spitting at staff members in the room, IMAtivan administered Problem: Pain - Adult Goal: Verbalizes/displays adequate comfort level or baseline comfort level Outcome: Progressing Problem: Safety-Adult Goal: Free from fall injury Outcome: Progressing Problem: Coping Goal: Patient/family/caregiver able to verbalize concerns and demonstrate effective coping strategies Outcome: Not Progressing Problem: Behavior risks interference with medical technologist prn(s) and/or care Goal: Patient remains free from behavior that interferes with medical devices and/or care and restraints are discontinued as soon as indicated Outcome: Progressing * Plan of Care - Dulce Cheung RN - 05/14/2025 2:22 PM EDT Patient calm throughout the AM. At approx 2 pm patient became acutely agitated and attempted several times to remove G-tube. He also attempted to hit staff members who were within arms length. Attempts to verbally de-escalate and create a calm environment unsuccessful at prevent further episodes ofagitation. Ultimately decision was made with medical team to administer Ativan for patient and staff safety w/ some effect. He continued to express agitation verbally but no longer attempted to hit staff. He continues to be paranoid about motivations of staff and states that information in the [employer] television is nonsense but is unable to elaborate further. 1:1 sitter at bedside throughout entirety of shift. Intermittently refuses repositioning despite multiple attempts. Safe environment in place. Problem: Pain - Adult Goal: Verbalizes/displays adequate comfort level or baseline comfort level Outcome: Progressing Problem: Safety-Adult Goal: Free from fall injury Outcome: Progressing Problem: Altered Nutrient Intake Goal: Nutrient intake appropriate for improving, restoring or maintaining nutritional needs Outcome: Progressing Problem: Mobility Goal: Improve mobility to highest level of function Outcome: Not Progressing * Plan of Care - Jaspreet Mai RN - 05/13/2025 10:50 PM EDT [id number]. Pt cooperative with en-Gauge. 1:1 sitter at bedside. Safety maintained. Problem: Pain - Adult Goal: Verbalizes/displays adequate comfort level or baseline comfort level Outcome: Progressing Problem: Safety-Adult Goal: Free from fall injury Outcome: Progressing Problem: Discharge Planning Goal: Discharge to home or other facility with appropriate resources Outcome: Progressing Problem: Altered Nutrient Intake Goal: Nutrient intake appropriate for improving, restoring or maintaining nutritional needs Outcome: Progressing Problem: Chronic Conditions and Co-morbidities Goal: Patient's chronic conditions and co-morbidity symptoms are monitored and maintained or improved Outcome: Progressing Problem: Knowledge Deficit Goal: Patient/family/caregiver demonstrates understanding of disease process, treatment plan, medications, and discharge instructions Outcome: Progressing Problem: Coping Goal: Patient/family/caregiver able to verbalize concerns and demonstrate effective coping strategies Outcome: Progressing * Care Coordination Note - Demetra White RN - 05/13/2025 2:29 PM EDT Images from the original note were not included. Case Management Continued Stay Note Has patient been discussed in MDR?:Yes Estimated Date of Discharge: medically cleared; pending inpatient psych bed Plan: I/P psych; section 12; 1:1 Anticipated barriers (Medical & Non-Medical), if any: PEG/TF Comments: Admitted from [facility] were he was for STR. Current plan is discharge to inpatient psych; on section 12, medically cleared. Psych team following. TF ordered via peg. CM following. Demetra White RNCM [phone] * Plan of Care - Jaspreet Mai RN - 05/13/2025 6:14 AM EDT At start of shift, pt agitated, growling, punching/kicking, attempting to jump OOB. MD Hammond paged to bedside, 1 mg IM ativan ordered/administered, restraints ordered/initiated. At approx 2100, ptcalm in bed, restraints d/simón. Meds crushed to PEG tube. Continuous Jevity 1.5 TF restarted this shift. Purewick in place. 1:1 sitter at bedside. Safety maintained. * Plan of Care - Luiza Hamm MD - 05/12/2025 6:50 PM EDT G tube rescue performed at bedside. New 16 Fr low profile (3 cm stoma) was placed. G tube study confirmed correct positioning. G tube is ready to use. IR to sign off, please re-engage if needed. Willarrange 6 month follow up for exchange. Luiza Hamm MD Diagnostic and Interventional Radiology, PGY-5 * Liaison Communication - Kimani Rivas MD - 05/12/2025 11:24 AM EDT Liaison Communication note 05/12/25 Spoke with Marilyn Raygoza, patient's outpatient neurologist ([phone]) She has known patient for a few years to this point. 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 She had assisted in tapering him down on Abilify which shebelieved to be worsening his secondary parkinsonism, but patient preferred to stay on Sinemet for residual symptoms. If the team would like to consider downtitrating Sinemet, she recommends reducing dose to 1 tab TID for 1 week, then half tab TID for the week following. Patient still does have residual parkinsonism symptoms which may not resolve with time. She only knows him to have one psychiatric admission since knowing him for psychosis, but has otherwise appeared stable to her with normal communication and no residual psychotic symptoms. This discussion with recommendations were communicated with primary team. No changes in management recommendations from psychiatric standpoint are recommended today; would review progress note from this physician underwriter from 05/11 in regards to scheduled medications, as well as liaison communication note per Dr. Faith Keene for new agitation management recommendations. Psychiatry will continue to follow Mr. Raymundo. Kimani Rivas MD Psychiatry PGY2 [id number] * Liaison Communication - Faith Keene MD - 05/11/2025 10:41 PM EDT Overnight Event Paged overnight due to agitation w/o response to IM Lorazepam. Question regarding agitation recommendations. Per callback, patient received Lorazepam 1.5 mg IM without effect. In 4-point restraints. Question regarding additional agitation recommendations floor appropriate. Per chart review, Carter Raymundo is a 69 y.o. male with past psych history of schizoaffective disorder on clozapine and pertinent past medical history of oropharyngeal dysphagia c/b frequent aspiration now s/p PEG and drug-induced Parkinsonism (appears it was diagnosed in 2018). Psych following for agitation iso decompensated psychosis vs catatonia vs delirium. At this time, no G-tube access or PIV access. Patient has refused all medications including AM Clozapine. PM Clozapine and Seroquel PRN could not be administered due to patient self-removing G-tube. Medication administered include Lorazepam 1 mg IM at 22:05 and Lorazepam 0.5 mg IM at 22:11 without effect. Per psychiatry progress note 05/[address] Rivas, EKG in paper chart with QTc 503 - Bazett correction. On bedside evaluation, patient in 4-point restraints. Attempted to rise to spit at this author on multiple occasions. Unable to engage in interview, made vulgar statements with significant profanity directed towards this author and reported this author is a fake psychiatrist. Patient was able to report back currently location at [facility] correctly; otherwise, unable to engage in further cognitive e xam or interview. Interview terminated due to agitated behavior. At this time, there are limited options medication interventions for agitation due to limited access. Intramuscular medications are the only option at this time. Olanzapine could be utilized; howeverbecause the patient was recently administered IM lorazepam this is not an option within 2 hours of the last lorazepam administration due to risk of respiratory suppression. Though patient has a history of drug-induced parkinsonism, the benefits of administering first generation Haldol outweigh the risks as patient is acutely agitated, is unable to engage in care and has impaired care due to calling lines, and thrashing in 4-point restraints. At this time, recommend repeat EKG for QTc monitoringprior to Haldol administration. Would recommend Haldol 2 mg IM and Benadryl 50 mg IM with close monitoring for EPS or Parkinson symptoms. If there is no response within 15 minutes, can repeat the same combination. If the dystonic reaction is appreciated, would repeat Benadryl 50 mg IM. Avoid benzodiazepines at this time due to their ineffectiveness and increased risk of delirium. If the patient is unresponsive to the above recommendations[place] [phone] for additional recommendations. Per chart review, there are no adverse reactions to Haldol in the past or allergy. Recommendations: - Repeat EKG for QTc monitoring - Haldol 2 mg IM and Benadryl 50 mg IM monitoring closely for EPS - If no response within 15 minutes, repeat Haldol 2 mg IM and Benadryl 50 mg IM - If dystonic reaction is appreciated, repeat Benadryl 50 mg IM - At this time, avoid benzodiazepine administration - If ongoing [place], [place] [phone] for additional recommendations if un-responsive Faith Keene MD Psychiatry PGY2 Discussed case with PGY4 Eric Mg MD Addendum EKG: HR 95, QT 394, Bazett 496 ms, Cameron 451 ms, Doll 455 ms * Significant Event - Jaspreet Mai RN - 05/11/2025 10:23 PM EDT At approx 2130, scheduled meds attempted to be given by this RN with the presence of additional RN's and PCT's. Pt agitated, aggressive, attempting to kick/swat, and screaming expletives at staff. While flushing pt's G-tube, pt suddenly grabbed G-tube and self-removed tube. MD and security paged tobedside. Restraints ordered/initiated. 1 mg ativan IM ordered/administered with no effect. Additional 0.5 mg IM ordered/administered. IR notified by MD about pt's G-tube. Dry dressing placed over G-tube site. Tube feeds held overnight. Scheduled meds unable to be administered, MD aware. Pt repositioned by production staff worker's and security. * Plan of Care - Arlene Best RN - 05/11/2025 7:08 PM EDT Alert. Pt verbally aggressive, making inappropriate and vulgar statements to staff. Pt attempting to be physically violent with staff. Accepted AM med pass after multiple attempts. Refused PM med pass. TF held from [id number] as ordered. 1:1 sitter present this shift. Safety maintained. * Plan of Care - Manohar Meza RN - 05/11/2025 3:26 AM EDT Problem: Pain - Adult Goal: Verbalizes/displays adequate comfort level or baseline comfort level Outcome: Progressing Problem: Safety-Adult Goal: Free from fall injury Outcome: Progressing Problem: Discharge Planning Goal: Discharge to home or other facility with appropriate resources Outcome: Progressing Problem: Coping Goal: Patient/family/caregiver able to verbalize concerns and demonstrate effective coping strategies Outcome: Progressing * Plan of Care - Arlene Best RN - 05/10/2025 6:10 PM EDT VSShannon RA. Disorganized thinking. TF held from [id number] as [address] Purewick in place collecting dark yellow urine. 1:1 sitter present. Frequent safety checks made. * Plan of Care - Manohar Meza RN - 05/10/2025 6:47 AM EDT Pt had a decent night. Initially pretty agitated and paranoid, but after Night time meds, PRN for agitation, and lots of talking he slept the rest of the shift. Problem: Pain - Adult Goal: Verbalizes/displays adequate comfort level or baseline comfort level Outcome: Progressing Problem: Safety-Adult Goal: Free from fall injury Outcome: Progressing Problem: Discharge Planning Goal: Discharge to home or other facility with appropriate resources Outcome: Progressing Problem: Altered Nutrient Intake Goal: Nutrient intake appropriate for improving, restoring or maintaining nutritional needs Outcome: Progressing Problem: Chronic Conditions and Co-morbidities Goal: Patient's chronic conditions and co-morbidity symptoms are monitored and maintained or improved Outcome: Progressing Problem: Mobility Goal: Improve mobility to highest level of function Outcome: Progressing Problem: Knowledge Deficit Goal: Patient/family/caregiver demonstrates understanding of disease process, treatment plan, medications, and discharge instructions Outcome: Progressing Problem: Coping Goal: Patient/family/caregiver able to verbalize concerns and demonstrate effective coping strategies Outcome: Progressing Problem: Behavior risks interference with medical technologist prn(s) and/or care Goal: Patient remains free from behavior that interferes with medical devices and/or care and restraints are discontinued as soon as indicated Outcome: Progressing * Plan of Care - Angel Luis Frausto RN - 05/09/2025 11:58 AM EDT Problem: Pain - Adult Goal: Verbalizes/displays adequate comfort level or baseline comfort level Outcome: Progressing Problem: Safety-Adult Goal: Free from fall injury Outcome: Progressing Problem: Discharge Planning Goal: Discharge to home or other facility with appropriate resources Outcome: Progressing Problem: Altered Nutrient Intake Goal: Nutrient intake appropriate for improving, restoring or maintaining nutritional needs Outcome: Progressing Problem: Chronic Conditions and Co-morbidities Goal: Patient's chronic conditions and co-morbidity symptoms are monitored and maintained or improved Outcome: Progressing Problem: Mobility Goal: Improve mobility to highest level of function Outcome: Progressing Problem: Knowledge Deficit Goal: Patient/family/caregiver demonstrates understanding of disease process, treatment plan, medications, and discharge instructions Outcome: Progressing Problem: Coping Goal: Patient/family/caregiver able to verbalize concerns and demonstrate effective coping strategies Outcome: Progressing Problem: Behavior risks interference with medical technologist prn(s) and/or care Goal: Patient remains free from behavior that interferes with medical devices and/or care and restraints are discontinued as soon as indicated Outcome: Progressing * Plan of Care - Manohar Meza RN - 05/08/2025 11:19 PM EDT Problem: Pain - Adult Goal: Verbalizes/displays adequate comfort level or baseline comfort level Outcome: Progressing Problem: Safety-Adult Goal: Free from fall injury Outcome: Progressing Problem: Altered Nutrient Intake Goal: Nutrient intake appropriate for improving, restoring or maintaining nutritional needs Outcome: Progressing Problem: Mobility Goal: Improve mobility to highest level of function Outcome: Progressing Problem: Behavior risks interference with medical technologist prn(s) and/or care Goal: Patient remains free from behavior that interferes with medical devices and/or care and restraints are discontinued as soon as indicated Outcome: Progressing * Plan of Care - Rosalinda Montano RN - 05/08/2025 11:15 AM EDT Problem: Safety-Adult Goal: Free from fall injury Outcome: Progressing Problem: Discharge Planning Goal: Discharge to home or other facility with appropriate resources Outcome: Progressing Problem: Altered Nutrient Intake Goal: Nutrient intake appropriate for improving, restoring or maintaining nutritional needs Outcome: Progressing Problem: Knowledge Deficit Goal: Patient/family/caregiver demonstrates understanding of disease process, treatment plan, medications, and discharge instructions Outcome: Progressing Problem: Coping Goal: Patient/family/caregiver able to verbalize concerns and demonstrate effective coping strategies Outcome: Progressing Problem: Behavior risks interference with medical technologist prn(s) and/or care Goal: Patient remains free from behavior that interferes with medical devices and/or care and restraints are discontinued as soon as indicated Outcome: Progressing * Plan of Care - Nicole Willoughby RN - 05/07/2025 7:42 PM EDT Pt alert, unable to assess orientation, pt refusing to answer orientation questions. VSS, on RA. Reporting no pain. Refusing all AM meds, MD Starks aware. Pt sleeping most of day. Tube feeds intermittent per order. Code purpled at 1830- spitting and biting at, kicking, hitting, and scratching staff. Soft wrist and elsy restraints initiated. 1:1 sitter. Frequent safety checks performed, safety maintained. Problem: Pain - Adult Goal: Verbalizes/displays adequate comfort level or baseline comfort level Outcome: Progressing Problem: Safety-Adult Goal: Free from fall injury Outcome: Not Progressing Problem: Discharge Planning Goal: Discharge to home or other facility with appropriate resources Outcome: Not Progressing Problem: Altered Nutrient Intake Goal: Nutrient intake appropriate for improving, restoring or maintaining nutritional needs Outcome: Progressing Problem: Chronic Conditions and Co-morbidities Goal: Patient's chronic conditions and co-morbidity symptoms are monitored and maintained or improved Outcome: Not Progressing Problem: Mobility Goal: Improve mobility to highest level of function Outcome: Not Progressing Problem: Knowledge Deficit Goal: Patient/family/caregiver demonstrates understanding of disease process, treatment plan, medications, and discharge instructions Outcome: Not Progressing Problem: Coping Goal: Patient/family/caregiver able to verbalize concerns and demonstrate effective coping strategies Outcome: Not Progressing Problem: Behavior risks interference with medical technologist prn(s) and/or care Goal: Patient remains free from behavior that interferes with medical devices and/or care and restraints are discontinued as soon as indicated Outcome: Not Progressing * Significant Event - Francesco Boyle MD - 05/07/2025 6:04 PM EDT Images from the original note were not included. [facility] Department of Medicine [facility] Trigger Note Patient: Carter Raymundo Attending of Record: Mohinder Johnson MD Clinician called to bedside by overhead alert for concern for behavioral health emergency. Per nursing, patient had suddenly become agitated and began kicking and spitting at nurses. He was physically restrained and a nearby MD team initially responded and ordered IM ativan given history of long QTC. He was more calm the remainder of the night and remained in four point soft restraints. At the conclusion of this trigger, the patient's disposition will be to: remain at current level ofcare Francesco Boyle MD, MPH PGY-2, Internal Medicine - Primary Care [facility], [id number] * Care Coordination Note - Demetra White RN - 05/07/2025 3:06 PM EDT Images from the original note were not included. Case Management Continued Stay Note Has patient been discussed in MDR?:Yes Estimated Date of Discharge: medically cleared; pending inpatient psych bed Plan: I/P psych; section 12; 1:1 Anticipated barriers (Medical & Non-Medical), if any: PEG/TF Comments: Admitted from [facility] were he was for STR. Current plan is discharge to inpatient psych; on section 12, medically cleared. Psych team following. TF ordered via peg. CM following. Demetra White RNCM [phone] * Plan of Care - Param Beltrán RN - 05/06/2025 9:11 PM EDT Problem: Pain - Adult Goal: Verbalizes/displays adequate comfort level or baseline comfort level Outcome: Not Progressing Problem: Safety-Adult Goal: Free from fall injury Outcome: Not Progressing Problem: Discharge Planning Goal: Discharge to home or other facility with appropriate resources Outcome: Not Progressing Problem: Altered Nutrient Intake Goal: Nutrient intake appropriate for improving, restoring or maintaining nutritional needs Outcome: Not Progressing Problem: Chronic Conditions and Co-morbidities Goal: Patient's chronic conditions and co-morbidity symptoms are monitored and maintained or improved Outcome: Not Progressing Problem: Mobility Goal: Improve mobility to highest level of function Outcome: Not Progressing Problem: Knowledge Deficit Goal: Patient/family/caregiver demonstrates understanding of disease process, treatment plan, medications, and discharge instructions Outcome: Not Progressing Problem: Coping Goal: Patient/family/caregiver able to verbalize concerns and demonstrate effective coping strategies Outcome: Not Progressing Problem: Behavior risks interference with medical technologist prn(s) and/or care Goal: Patient remains free from behavior that interferes with medical devices and/or care and restraints are discontinued as soon as indicated Outcome: Not Progressing * Plan of Care - Angel Luis Frausto RN - 05/06/2025 2:41 PM EDT Problem: Pain - Adult Goal: Verbalizes/displays adequate comfort level or baseline comfort level Outcome: Progressing Problem: Safety-Adult Goal: Free from fall injury Outcome: Progressing Problem: Discharge Planning Goal: Discharge to home or other facility with appropriate resources Outcome: Progressing Problem: Altered Nutrient Intake Goal: Nutrient intake appropriate for improving, restoring or maintaining nutritional needs Outcome: Progressing Problem: Chronic Conditions and Co-morbidities Goal: Patient's chronic conditions and co-morbidity symptoms are monitored and maintained or improved Outcome: Progressing Problem: Mobility Goal: Improve mobility to highest level of function Outcome: Progressing Problem: Knowledge Deficit Goal: Patient/family/caregiver demonstrates understanding of disease process, treatment plan, medications, and discharge instructions Outcome: Progressing Problem: Coping Goal: Patient/family/caregiver able to verbalize concerns and demonstrate effective coping strategies Outcome: Progressing Problem: Behavior risks interference with medical technologist prn(s) and/or care Goal: Patient remains free from behavior that interferes with medical devices and/or care and restraints are discontinued as soon as indicated Outcome: Progressing * Plan of Care - Param Beltrán RN - 05/06/2025 2:33 AM EDT Problem: Pain - Adult Goal: Verbalizes/displays adequate comfort level or baseline comfort level Outcome: Progressing Problem: Safety-Adult Goal: Free from fall injury Outcome: Progressing Problem: Discharge Planning Goal: Discharge to home or other facility with appropriate resources Outcome: Progressing Problem: Altered Nutrient Intake Goal: Nutrient intake appropriate for improving, restoring or maintaining nutritional needs Outcome: Progressing Problem: Chronic Conditions and Co-morbidities Goal: Patient's chronic conditions and co-morbidity symptoms are monitored and maintained or improved Outcome: Progressing Problem: Mobility Goal: Improve mobility to highest level of function Outcome: Progressing Problem: Knowledge Deficit Goal: Patient/family/caregiver demonstrates understanding of disease process, treatment plan, medications, and discharge instructions Outcome: Progressing Problem: Coping Goal: Patient/family/caregiver able to verbalize concerns and demonstrate effective coping strategies Outcome: Progressing Problem: Behavior risks interference with medical technologist prn(s) and/or care Goal: Patient remains free from behavior that interferes with medical devices and/or care and restraints are discontinued as soon as indicated Outcome: Progressing * Plan of Care - Rena Swift RN - 05/05/2025 10:35 AM EDT Pt A&O to self and place, disoriented to situation. Paranoid. VSS. RA. Tube feeds running as ordered. 1:1 sitter present. Pt refused meds and tube feeds for this RN, accepted meds from different RN this shift. Pt c/o pain, will not specify where, refuses pain medications. Pt calls out in pain intermittently. Provided meds as per DEC. Maintained pt care and safety this shift. Problem: Pain - Adult Goal: Verbalizes/displays adequate comfort level or baseline comfort level Outcome: Not Progressing Problem: Altered Nutrient Intake Goal: Nutrient intake appropriate for improving, restoring or maintaining nutritional needs Outcome: Not Progressing Problem: Mobility Goal: Improve mobility to highest level of function Outcome: Not Progressing Problem: Knowledge Deficit Goal: Patient/family/caregiver demonstrates understanding of disease process, treatment plan, medications, and discharge instructions Outcome: Not Progressing Problem: Safety-Adult Goal: Free from fall injury Outcome: Progressing Problem: Discharge Planning Goal: Discharge to home or other facility with appropriate resources Outcome: Progressing Problem: Chronic Conditions and Co-morbidities Goal: Patient's chronic conditions and co-morbidity symptoms are monitored and maintained or improved Outcome: Progressing Problem: Coping Goal: Patient/family/caregiver able to verbalize concerns and demonstrate effective coping strategies Outcome: Progressing Problem: Behavior risks interference with medical technologist prn(s) and/or care Goal: Patient remains free from behavior that interferes with medical devices and/or care and restraints are discontinued as soon as indicated Outcome: Progressing * Plan of Care - Rena Swift RN - 05/04/2025 11:07 AM EDT Pt A&Ox3. VSS. RA. Tube feeds running as ordered. 1:1 sitter present. Provided meds as per DEC.Maintained pt care and safety this shift. Problem: Pain - Adult Goal: Verbalizes/displays adequate comfort level or baseline comfort level Outcome: Progressing Problem: Safety-Adult Goal: Free from fall injury Outcome: Progressing Problem: Discharge Planning Goal: Discharge to home or other facility with appropriate resources Outcome: Progressing Problem: Altered Nutrient Intake Goal: Nutrient intake appropriate for improving, restoring or maintaining nutritional needs Outcome: Progressing Problem: Chronic Conditions and Co-morbidities Goal: Patient's chronic conditions and co-morbidity symptoms are monitored and maintained or improved Outcome: Progressing Problem: Mobility Goal: Improve mobility to highest level of function Outcome: Progressing Problem: Knowledge Deficit Goal: Patient/family/caregiver demonstrates understanding of disease process, treatment plan, medications, and discharge instructions Outcome: Progressing Problem: Coping Goal: Patient/family/caregiver able to verbalize concerns and demonstrate effective coping strategies Outcome: Progressing Problem: Behavior risks interference with medical technologist prn(s) and/or care Goal: Patient remains free from behavior that interferes with medical devices and/or care and restraints are discontinued as soon as indicated Outcome: Progressing * Plan of Care - Gricelda Chávez RN - 05/03/2025 2:43 AM EDT A+O x 3 at start of shift, but later asking for an ambulance so he could go to the hospital. Expression frustration in staff an feeling as though we were not understanding his feelings and the state he was in and feeling like he was going to kill himself, 1:1 sitter continues to be at bedside and pt. Unable to be reassured by RN, declining further prn meds (given prn seroquel in evening for anxiety), MD francesco Germain in to see patient. After MD left, pt. Began escalating and threatening to break the window and jump out of it and trying to get oob, MD Georgette Menon made aware and in to see patient. Pt. Given iv ativan due to inabilty to remain calm, trying to get oob and punching the mattress. Pt.Calmer after ativan and able to get some sleep. Refusing repositioning at times despite encouragement, heels elevated off bed, mepilexes in place. Overhead lift used for repositioning, pt. On air mattress. Pt. Agreeable to evening medication. Pt. Reporting abdominal distention and pain, +bowel sounds, given prn bisacodyl suppository along with standing bowel medications for constipation, with +effect and pt. Having 1 large soft stool. All meds crushed via peg tube, abdomen distended, mildly firm, dressing intact at PEG tube site. Pt. Awake until around 2 am. Problem: Pain - Adult Goal: Verbalizes/displays adequate comfort level or baseline comfort level Outcome: Not Progressing Problem: Chronic Conditions and Co-morbidities Goal: Patient's chronic conditions and co-morbidity symptoms are monitored and maintained or improved Outcome: Not Progressing Problem: Mobility Goal: Improve mobility to highest level of function Outcome: Not Progressing Problem: Knowledge Deficit Goal: Patient/family/caregiver demonstrates understanding of disease process, treatment plan, medications, and discharge instructions Outcome: Not Progressing Problem: Coping Goal: Patient/family/caregiver able to verbalize concerns and demonstrate effective coping strategies Outcome: Not Progressing Problem: Behavior risks interference with medical technologist prn(s) and/or care Goal: Patient remains free from behavior that interferes with medical devices and/or care and restraints are discontinued as soon as indicated Outcome: Not Progressing * Plan of Care - Gricelda Chávez RN - 05/02/2025 4:52 AM EDT Alert, declining to answer the majority of questions, stating I'm doing ok . Refusing repositioning at times, removing condom cath, encouraged to use urinal if declining condom cath. Overhead lift used for repositioning, pt. On air mattress. Pt. Declining evening medications and eventually agreeable around 2 am to take all medications, including mag citrate and to start tube feeds. All meds crushed via peg tube, abdomen distended, mildly firm, nontender, dressing intact at PEG tube site. Pt. Awake the majority of night, at times trying to get oob, when encouraged to try to get some sleep, pt. Stating, I know for certain if I go tot sleep I am going to be killed. Support provided. 1:1 sitter at bedside, safety maintained. Problem: Safety-Adult Goal: Free from fall injury Outcome: Not Progressing Problem: Altered Nutrient Intake Goal: Nutrient intake appropriate for improving, restoring or maintaining nutritional needs Outcome: Not Progressing Problem: Mobility Goal: Improve mobility to highest level of function Outcome: Not Progressing Problem: Knowledge Deficit Goal: Patient/family/caregiver demonstrates understanding of disease process, treatment plan, medications, and discharge instructions Outcome: Not Progressing Problem: Behavior risks interference with medical technologist prn(s) and/or care Goal: Patient remains free from behavior that interferes with medical devices and/or care and restraints are discontinued as soon as indicated Outcome: Not Progressing * Plan of Care - Kalyn Brown MD - 05/01/2025 3:05 PM EDT Carter Raymundo is a 69-year-old man with history of schizoaffective disorder, catatonia, drug-induced parkinsonism, CAD, hypertension, recurrent aspiration s/p PEG tube placement who presented from [facility] with symptoms of decreased verbal output, unresponsiveness, and reported L facial droop, for which a CODE STROKE was called. Imaging showed no evidence of large venous obstruction on CTA H/N, and MRI Brain was negative for acute ischemic stroke. Based on Medicine H&P, further collateral obtained from patient indicates a volitional component to his presentation, in which he devised a plan to get out of [facility] by faking a stroke. He reports that this plan was a success and is adamant that he does not want to return to [facility], stating that he would prefer to live on his own. Per primary team, the patient has had multiple episodes of staring off into the distance with behavioral arrest. It does not break with noxious stimuli. There are no adventitious movements associatedwith this, tongue bite, or incontinence. He has now had two EEG with event capture and no electrographic correlate concerning for seizure, without any epileptiform discharges suggesting that he is prone to seizure. Workup has also included MRI Brain (as above) as well as two NCHCT, showing no acuteintracranial abnormality. Initially there was concern that these episodes represented catatonia, as they coincided with missed medication doses. However, the patient has been reliably receiving his medications as scheduled and continues to have these events. Given his grossly normal brain imaging, which has included MRI Brain and NCHCT x2, as well as two EEG studies with event capture that do not show seizure, it seems unlikely that these episodes have aprimary pathologic neurological etiology, and there is no further workup that we would recommend atthis time. Agree with psychiatry consult to optimize patient for discharge from inpatient medicine. * Plan of Care - Rena Swift RN - 05/01/2025 10:35 AM EDT Pt A&O to self, place, and time. Disoriented to situation. VSS. Cont O2 on RA, cont O2 d/simón this shift. Tube feeds running as ordered in morning, pt refused tube feeds in afternoon. Condom cath in place. Pt refused additional bowel meds this shift. EEG in place. Provided meds as per DEC, pt refusing majority of meds this shift. Maintained pt care and safety this shift. Problem: Pain - Adult Goal: Verbalizes/displays adequate comfort level or baseline comfort level Outcome: Progressing Problem: Safety-Adult Goal: Free from fall injury Outcome: Progressing Problem: Discharge Planning Goal: Discharge to home or other facility with appropriate resources Outcome: Progressing Problem: Altered Nutrient Intake Goal: Nutrient intake appropriate for improving, restoring or maintaining nutritional needs Outcome: Progressing Problem: Chronic Conditions and Co-morbidities Goal: Patient's chronic conditions and co-morbidity symptoms are monitored and maintained or improved Outcome: Progressing Problem: Mobility Goal: Improve mobility to highest level of function Outcome: Progressing Problem: Knowledge Deficit Goal: Patient/family/caregiver demonstrates understanding of disease process, treatment plan, medications, and discharge instructions Outcome: Progressing Problem: Coping Goal: Patient/family/caregiver able to verbalize concerns and demonstrate effective coping strategies Outcome: Progressing Problem: Behavior risks interference with medical technologist prn(s) and/or care Goal: Patient remains free from behavior that interferes with medical devices and/or care and restraints are discontinued as soon as indicated Outcome: Progressing * Plan of Care - Gricelda Cano RN - 04/30/2025 8:16 PM EDT Problem: Pain - Adult Goal: Verbalizes/displays adequate comfort level or baseline comfort level Outcome: Progressing Problem: Safety-Adult Goal: Free from fall injury Outcome: Progressing Problem: Discharge Planning Goal: Discharge to home or other facility with appropriate resources Outcome: Progressing Problem: Altered Nutrient Intake Goal: Nutrient intake appropriate for improving, restoring or maintaining nutritional needs Outcome: Progressing Problem: Chronic Conditions and Co-morbidities Goal: Patient's chronic conditions and co-morbidity symptoms are monitored and maintained or improved Outcome: Progressing Problem: Mobility Goal: Improve mobility to highest level of function Outcome: Progressing Problem: Knowledge Deficit Goal: Patient/family/caregiver demonstrates understanding of disease process, treatment plan, medications, and discharge instructions Outcome: Progressing Problem: Coping Goal: Patient/family/caregiver able to verbalize concerns and demonstrate effective coping strategies Outcome: Progressing Problem: Behavior risks interference with medical technologist prn(s) and/or care Goal: Patient remains free from behavior that interferes with medical devices and/or care and restraints are discontinued as soon as indicated Outcome: Progressing * Care Coordination Note - Demetra White RN - 04/30/2025 1:48 PM EDT Images from the original note were not included. Case Management Continued Stay Note Has patient been discussed in MDR?:Yes Estimated Date of Discharge: TBD; pending medical clearance Plan: I/P psych; section 12; 1:1 Anticipated barriers (Medical & Non-Medical), if any: PEG/TF Comments: Admitted from [facility] were he was for STR. Current plan is discharge to inpatient psych; on section 12, when medically cleared. Psych team following. TF ordered via peg. CM following. Demetra White RNCM [id number] * Plan of Care - Angel Luis Frausto RN - 04/30/2025 1:06 PM EDT Problem: Pain - Adult Goal: Verbalizes/displays adequate comfort level or baseline comfort level Outcome: Progressing Problem: Safety-Adult Goal: Free from fall injury Outcome: Progressing Problem: Discharge Planning Goal: Discharge to home or other facility with appropriate resources Outcome: Progressing Problem: Altered Nutrient Intake Goal: Nutrient intake appropriate for improving, restoring or maintaining nutritional needs Outcome: Progressing Problem: Chronic Conditions and Co-morbidities Goal: Patient's chronic conditions and co-morbidity symptoms are monitored and maintained or improved Outcome: Progressing Problem: Mobility Goal: Improve mobility to highest level of function Outcome: Progressing Problem: Knowledge Deficit Goal: Patient/family/caregiver demonstrates understanding of disease process, treatment plan, medications, and discharge instructions Outcome: Progressing Problem: Coping Goal: Patient/family/caregiver able to verbalize concerns and demonstrate effective coping strategies Outcome: Progressing Problem: Behavior risks interference with medical technologist prn(s) and/or care Goal: Patient remains free from behavior that interferes with medical devices and/or care and restraints are discontinued as soon as indicated Outcome: Progressing * Plan of Care - Angel Luis Frausto RN - 04/29/2025 11:27 AM EDT Problem: Pain - Adult Goal: Verbalizes/displays adequate comfort level or baseline comfort level Outcome: Progressing Problem: Safety-Adult Goal: Free from fall injury Outcome: Progressing Problem: Discharge Planning Goal: Discharge to home or other facility with appropriate resources Outcome: Progressing Problem: Altered Nutrient Intake Goal: Nutrient intake appropriate for improving, restoring or maintaining nutritional needs Outcome: Progressing Problem: Chronic Conditions and Co-morbidities Goal: Patient's chronic conditions and co-morbidity symptoms are monitored and maintained or improved Outcome: Progressing Problem: Mobility Goal: Improve mobility to highest level of function Outcome: Progressing Problem: Knowledge Deficit Goal: Patient/family/caregiver demonstrates understanding of disease process, treatment plan, medications, and discharge instructions Outcome: Progressing Problem: Coping Goal: Patient/family/caregiver able to verbalize concerns and demonstrate effective coping strategies Outcome: Progressing Problem: Behavior risks interference with medical technologist prn(s) and/or care Goal: Patient remains free from behavior that interferes with medical devices and/or care and restraints are discontinued as soon as indicated Outcome: Progressing * Plan of Care - Rena Swift RN - 04/28/2025 7:52 PM EDT Pt A&O to self and place. VSS. RA. Tube feeds running as ordered. 1:1 sitter in room. Fingersticks performed as ordered. Purewick in place. Provided meds as per DEC. Maintained pt care and safetythis shift. Problem: Pain - Adult Goal: Verbalizes/displays adequate comfort level or baseline comfort level Outcome: Progressing Problem: Safety-Adult Goal: Free from fall injury Outcome: Progressing Problem: Discharge Planning Goal: Discharge to home or other facility with appropriate resources Outcome: Progressing Problem: Altered Nutrient Intake Goal: Nutrient intake appropriate for improving, restoring or maintaining nutritional needs Outcome: Progressing Problem: Chronic Conditions and Co-morbidities Goal: Patient's chronic conditions and co-morbidity symptoms are monitored and maintained or improved Outcome: Progressing Problem: Mobility Goal: Improve mobility to highest level of function Outcome: Progressing Problem: Knowledge Deficit Goal: Patient/family/caregiver demonstrates understanding of disease process, treatment plan, medications, and discharge instructions Outcome: Progressing Problem: Coping Goal: Patient/family/caregiver able to verbalize concerns and demonstrate effective coping strategies Outcome: Progressing Problem: Behavior risks interference with medical technologist prn(s) and/or care Goal: Patient remains free from behavior that interferes with medical devices and/or care and restraints are discontinued as soon as indicated Outcome: Progressing * Plan of Care - nAgel Luis Frausto RN - 04/28/2025 8:46 AM EDT Problem: Pain - Adult Goal: Verbalizes/displays adequate comfort level or baseline comfort level Outcome: Progressing Problem: Safety-Adult Goal: Free from fall injury Outcome: Progressing Problem: Discharge Planning Goal: Discharge to home or other facility with appropriate resources Outcome: Progressing Problem: Altered Nutrient Intake Goal: Nutrient intake appropriate for improving, restoring or maintaining nutritional needs Outcome: Progressing Problem: Chronic Conditions and Co-morbidities Goal: Patient's chronic conditions and co-morbidity symptoms are monitored and maintained or improved Outcome: Progressing Problem: Mobility Goal: Improve mobility to highest level of function Outcome: Progressing Problem: Knowledge Deficit Goal: Patient/family/caregiver demonstrates understanding of disease process, treatment plan, medications, and discharge instructions Outcome: Progressing Problem: Coping Goal: Patient/family/caregiver able to verbalize concerns and demonstrate effective coping strategies Outcome: Progressing Problem: Behavior risks interference with medical technologist prn(s) and/or care Goal: Patient remains free from behavior that interferes with medical devices and/or care and restraints are discontinued as soon as indicated Outcome: Progressing * Plan of Care - Manohar Meza RN - 04/28/2025 6:37 AM EDT Problem: Safety-Adult Goal: Free from fall injury Outcome: Not Progressing Problem: Altered Nutrient Intake Goal: Nutrient intake appropriate for improving, restoring or maintaining nutritional needs Outcome: Not Progressing Problem: Coping Goal: Patient/family/caregiver able to verbalize concerns and demonstrate effective coping strategies Outcome: Not Progressing Problem: Pain - Adult Goal: Verbalizes/displays adequate comfort level or baseline comfort level Outcome: Progressing Problem: Chronic Conditions and Co-morbidities Goal: Patient's chronic conditions and co-morbidity symptoms are monitored and maintained or improved Outcome: Progressing Problem: Mobility Goal: Improve mobility to highest level of function Outcome: Progressing Problem: Knowledge Deficit Goal: Patient/family/caregiver demonstrates understanding of disease process, treatment plan, medications, and discharge instructions Outcome: Progressing * Plan of Care - Chris Soria RN - 04/27/2025 3:17 PM EDT Monitor mental status Given ativan per provider order at 2pm. Prior to ativan pt had extraocular eye movement and mouth movement. Post ativan pt is sleeping and snoring. Problem: Pain - Adult Goal: Verbalizes/displays adequate comfort level or baseline comfort level Outcome: Progressing Problem: Safety-Adult Goal: Free from fall injury Outcome: Progressing Problem: Discharge Planning Goal: Discharge to home or other facility with appropriate resources Outcome: Progressing Problem: Altered Nutrient Intake Goal: Nutrient intake appropriate for improving, restoring or maintaining nutritional needs Outcome: Progressing Problem: Chronic Conditions and Co-morbidities Goal: Patient's chronic conditions and co-morbidity symptoms are monitored and maintained or improved Outcome: Progressing * Plan of Care - Emeli Pham RN - 04/27/2025 6:51 AM EDT Problem: Pain - Adult Goal: Verbalizes/displays adequate comfort level or baseline comfort level Outcome: Progressing Problem: Safety-Adult Goal: Free from fall injury Outcome: Progressing Problem: Discharge Planning Goal: Discharge to home or other facility with appropriate resources Outcome: Progressing Problem: Altered Nutrient Intake Goal: Nutrient intake appropriate for improving, restoring or maintaining nutritional needs Outcome: Progressing Problem: Chronic Conditions and Co-morbidities Goal: Patient's chronic conditions and co-morbidity symptoms are monitored and maintained or improved Outcome: Progressing Problem: Mobility Goal: Improve mobility to highest level of function Outcome: Progressing Problem: Knowledge Deficit Goal: Patient/family/caregiver demonstrates understanding of disease process, treatment plan, medications, and discharge instructions Outcome: Progressing Problem: Coping Goal: Patient/family/caregiver able to verbalize concerns and demonstrate effective coping strategies Outcome: Progressing * Plan of Care - Emeli Pham RN - 04/27/2025 6:50 AM EDT Hyper-alert this shift, refusing VS and meds. Pt sitting straight up in chair, declining repositioning/elevating feet/blankets, and declining offer to return to the bed. This RN attempting to reapproach and offering to flush PEG tube, pt declining, stating, it doesn't need to be flushed, I have enough nutrition, pt continuing to decline despite education and encouragement. Pt also making statements, such as, there's a man pushing me, and requesting staff not to tell anyone. Pt began yellingout, I'm a goner, I'm a goner, when staff went into check on the pt, he stated, I don't need anything. Tolerating Tfs running at goal. Frequent rounding performed, 1:1 sitter, safety maintained. * Plan of Care - Manohar Meza RN - 04/26/2025 6:26 PM EDT Problem: Pain - Adult Goal: Verbalizes/displays adequate comfort level or baseline comfort level Outcome: Progressing Problem: Safety-Adult Goal: Free from fall injury Outcome: Progressing Problem: Discharge Planning Goal: Discharge to home or other facility with appropriate resources Outcome: Progressing Problem: Altered Nutrient Intake Goal: Nutrient intake appropriate for improving, restoring or maintaining nutritional needs Outcome: Progressing Problem: Chronic Conditions and Co-morbidities Goal: Patient's chronic conditions and co-morbidity symptoms are monitored and maintained or improved Outcome: Progressing Problem: Mobility Goal: Improve mobility to highest level of function Outcome: Progressing Problem: Knowledge Deficit Goal: Patient/family/caregiver demonstrates understanding of disease process, treatment plan, medications, and discharge instructions Outcome: Progressing Problem: Coping Goal: Patient/family/caregiver able to verbalize concerns and demonstrate effective coping strategies Outcome: Progressing * Plan of Care - Param Beltrán RN - 04/26/2025 12:07 AM EDT Problem: Pain - Adult Goal: Verbalizes/displays adequate comfort level or baseline comfort level Outcome: Progressing Problem: Safety-Adult Goal: Free from fall injury Outcome: Progressing Problem: Discharge Planning Goal: Discharge to home or other facility with appropriate resources Outcome: Progressing Problem: Altered Nutrient Intake Goal: Nutrient intake appropriate for improving, restoring or maintaining nutritional needs Outcome: Progressing Problem: Chronic Conditions and Co-morbidities Goal: Patient's chronic conditions and co-morbidity symptoms are monitored and maintained or improved Outcome: Progressing Problem: Mobility Goal: Improve mobility to highest level of function Outcome: Progressing Problem: Knowledge Deficit Goal: Patient/family/caregiver demonstrates understanding of disease process, treatment plan, medications, and discharge instructions Outcome: Progressing Problem: Coping Goal: Patient/family/caregiver able to verbalize concerns and demonstrate effective coping strategies Outcome: Progressing * Plan of Care - Manohar Meza RN - 04/25/2025 6:49 PM EDT Problem: Altered Nutrient Intake Goal: Nutrient intake appropriate for improving, restoring or maintaining nutritional needs Outcome: Not Progressing Problem: Mobility Goal: Improve mobility to highest level of function Outcome: Not Progressing * Plan of Care - Param Beltrán RN - 04/24/2025 11:28 PM EDT Problem: Pain - Adult Goal: Verbalizes/displays adequate comfort level or baseline comfort level Outcome: Progressing Problem: Safety-Adult Goal: Free from fall injury Outcome: Progressing Problem: Discharge Planning Goal: Discharge to home or other facility with appropriate resources Outcome: Progressing Problem: Altered Nutrient Intake Goal: Nutrient intake appropriate for improving, restoring or maintaining nutritional needs Outcome: Progressing Problem: Chronic Conditions and Co-morbidities Goal: Patient's chronic conditions and co-morbidity symptoms are monitored and maintained or improved Outcome: Progressing Problem: Coping Goal: Patient/family/caregiver able to verbalize concerns and demonstrate effective coping strategies Outcome: Progressing * Plan of Care - Param Beltrán RN - 04/24/2025 3:00 AM EDT Problem: Pain - Adult Goal: Verbalizes/displays adequate comfort level or baseline comfort level Outcome: Progressing Problem: Safety-Adult Goal: Free from fall injury Outcome: Progressing Problem: Discharge Planning Goal: Discharge to home or other facility with appropriate resources Outcome: Progressing Problem: Altered Nutrient Intake Goal: Nutrient intake appropriate for improving, restoring or maintaining nutritional needs Outcome: Progressing Problem: Chronic Conditions and Co-morbidities Goal: Patient's chronic conditions and co-morbidity symptoms are monitored and maintained or improved Outcome: Progressing Problem: Mobility Goal: Improve mobility to highest level of function Outcome: Progressing Problem: Knowledge Deficit Goal: Patient/family/caregiver demonstrates understanding of disease process, treatment plan, medications, and discharge instructions Outcome: Progressing Problem: Coping Goal: Patient/family/caregiver able to verbalize concerns and demonstrate effective coping strategies Outcome: Progressing * Plan of Care - Manohar Meza RN - 04/23/2025 6:53 PM EDT Problem: Altered Nutrient Intake Goal: Nutrient intake appropriate for improving, restoring or maintaining nutritional needs Outcome: Not Progressing Problem: Coping Goal: Patient/family/caregiver able to verbalize concerns and demonstrate effective coping strategies Outcome: Not Progressing * Care Coordination Note - Demetra White RN - 04/23/2025 4:50 PM EDT Images from the original note were not included. Case Management Continued Stay Note Has patient been discussed in MDR?:Yes Estimated Date of Discharge: pending inpatient psych bed; likely medically ready 04/24. Plan: I/P psych; section 12 Anticipated barriers (Medical & Non-Medical), if any: PEG/TF Comments: Admitted from [facility] were he was for STR. Current plan is discharge to inpatient psych; on section 12. Psych team following. TF ordered via peg. Also ordered for modified PO diet. PT following. CM following. Demetra White RNCM [id number] * Plan of Care - Kadie Adams RN - 04/23/2025 4:49 AM EDT Problem: Pain - Adult Goal: Verbalizes/displays adequate comfort level or baseline comfort level Outcome: Progressing Problem: Safety-Adult Goal: Free from fall injury Outcome: Progressing Problem: Discharge Planning Goal: Discharge to home or other facility with appropriate resources Outcome: Progressing Problem: Altered Nutrient Intake Goal: Nutrient intake appropriate for improving, restoring or maintaining nutritional needs Outcome: Progressing Problem: Chronic Conditions and Co-morbidities Goal: Patient's chronic conditions and co-morbidity symptoms are monitored and maintained or improved Outcome: Progressing Problem: Mobility Goal: Improve mobility to highest level of function Outcome: Progressing Problem: Knowledge Deficit Goal: Patient/family/caregiver demonstrates understanding of disease process, treatment plan, medications, and discharge instructions Outcome: Progressing Problem: Coping Goal: Patient/family/caregiver able to verbalize concerns and demonstrate effective coping strategies Outcome: Progressing * Significant Event - Juliet Becerra MD - 04/22/2025 1:06 PM EDT Images from the original note were not included. [facility] Department of Medicine [facility] Trigger Note Patient: Carter Raymundo Attending of Record: Bonifacio Agudelo MD Location: [facility] fa[facility] Room/Bed: 4S/[facility]-2 Advanced Care Planning: Full Code. Clinician called to bedside by Nurse for concern for Somnolence/Altered Mental Status. Subjective: Arrived at bedside and found patient staring straight ahead, not answering questions. Objective: Vital signs in last 24 hours Temp Min: 97.8 ??F (36.6 ??C) Max: 99.1 ??F (37.3 ??C) BP Min: 122/81 Max: 158/110 Pulse Min: 92 Max: 120 Resp Min: 18 Max: 18 SpO2: 97 % O2 Device: None (Room air) Last BM Date: 04/15/25 Actual Weight: 75.8 kg (167 lb 1.7 oz) Intake/Output Summary (Last 24 hours) at 04/22/2025 1320 Last data filed at 04/22/2025 0901 Gross per 24 hour Intake 2112 ml Output 300 ml Net 1812 ml Initial vital signs: Tachycardia to 120s, remainder wnl Physical exam notable for: General Appearance: Staring straight ahead, drooling Head: Normocephalic, without obvious abnormality, atraumatic Eyes: Pinpoint pupils, reactive to light, EOM's intact. Throat: Dystonic tongue movements Neck: Supple, symmetrical, trachea midline, no adenopathy; no carotid bruit or JVD Back: Symmetric, no curvature, ROM normal, no CVA tenderness Lungs: Clear to auscultation bilaterally, respirations unlabored Chest wall: No tenderness or deformity Heart: Regular rate and rhythm, S1 and S2 normal, no murmur, rub or gallop Abdomen: Soft, non-tender, bowel sounds active all four quadrants, no masses, no organomegaly Extremities: Extremities normal, atraumatic, no cyanosis or edema, no cogwheel rigiditiy Skin: Skin color, texture, turgor normal, no rashes or lesions Other: Clinical Assessment: Carter Raymundo is a 69 y.o. male who has has a past medical history of Anxiety, Coronary artery disease (09/2015), Erectile dysfunction, Gout, Hyperlipidemia, and Schizoaffective disorder (HCC). @ admitted 04/15/2025 for Aspiration pneumonitis (HCC) with clinical trigger activation for Marked Nursing Concern. Cause of somnolence/altered mental status is still unknown. Differential includes medication induced vs dystonia vs catatonia vs seizure vs neuroleptic malignant syndrome vs stroke. I reviewed current medications. Scheduled Medications[1] Infusions Meds[2] PRN Medications[3] Interventions and Interpretations: Diagnostic Plan: CMP, VBG, CBC, Head CT, CK, prolactin, EEG monitoring Therapeutic Plan: Ativan for potential reversal of catatonia At the conclusion of this trigger, the patient's disposition will be to: remain at current level ofcare This trigger was staffed with attending Dr. Agudelo. Juliet Becerra MD [1] atorvaSTATin, 20 mg, G-tube, QHS buPROPion, 100 mg, G-tube, TID carbidopa-levodopa, 2 tablet, G-tube, TID cloZAPine, 175 mg, G-tube, QHS enoxaparin, 40 mg, Subcutaneous, Q24H CLAUDIA famotidine, 20 mg, G-tube, BID gabapentin, 100 mg, G-tube, BID gabapentin, 300 mg, G-tube, QHS multivitamin with minerals tablet, 1 tablet, Oral, Daily sodium chloride, 3 mL, Intravenous, Q12H CLAUDIA potassium chloride ER, 60 mEq, Oral, Once ramelteon, 8 mg, Oral, QHS sennosides, 17.6 mg, G-tube, BID tamsulosin, 0.4 mg, G-tube, QHS traZODone, 150 mg, G-tube, Nightly [2] [3] calcium carbonate hydrOXYzine HCL Insert and Maintain Peripheral IV AND sodium chloride AND sodium chloride QUEtiapine Cosigned by Bonifacio Agudelo MD at 04/22/2025 3:01 PM EDT Associated attestation - Bonifacio Agudelo MD - 04/22/2025 3:01 PM EDT I have seen and examined Mr. Raymundo, reviewed the findings and plan of care as documented by MD Rex and agree, except for any additional comments below. I agree with details of trigger note as documented here. I saw him during this rapid response eventin the setting of my daily evaluation of him. Please see attestation from the progress note for details. Bonifacio Agudelo MD Section of Hospital Medicine [facility] * Significant Event - Rena Swift RN - 04/22/2025 12:57 PM EDT Pt triggered this shift for somnolence. MD to bedside. Fingerstick and vital signs taken. Provided ativan per MD for potential catatonia reversal. Pt did not react to medication. Pt to CT of head. See documentation for more details. * Plan of Care - Rena Swift RN - 04/22/2025 12:55 PM EDT Pt triggered this shift for somnolence, see trigger note and documentation for more details. Pt somnolent this shift. VSS. Cont O2 on RA. Tele SR/ST.1:1 sitter. Tube feeds running as ordered. Provided meds as per DEC. Maintained pt care and safety this shift. Problem: Altered Nutrient Intake Goal: Nutrient intake appropriate for improving, restoring or maintaining nutritional needs Outcome: Not Progressing Problem: Pain - Adult Goal: Verbalizes/displays adequate comfort level or baseline comfort level Outcome: Progressing Problem: Safety-Adult Goal: Free from fall injury Outcome: Progressing Problem: Discharge Planning Goal: Discharge to home or other facility with appropriate resources Outcome: Progressing Problem: Chronic Conditions and Co-morbidities Goal: Patient's chronic conditions and co-morbidity symptoms are monitored and maintained or improved Outcome: Progressing Problem: Mobility Goal: Improve mobility to highest level of function Outcome: Progressing Problem: Knowledge Deficit Goal: Patient/family/caregiver demonstrates understanding of disease process, treatment plan, medications, and discharge instructions Outcome: Progressing Problem: Coping Goal: Patient/family/caregiver able to verbalize concerns and demonstrate effective coping strategies Outcome: Progressing * Plan of Care - Rena Swift RN - 04/21/2025 3:41 PM EDT Pt A&Ox3, unaware of situation. VSS. RA, pt refusing cont O2 monitoring. 1:1 sitter. Tube feedsrunning as ordered. Provided meds as per DEC. Maintained pt care and safety this shift. Problem: Pain - Adult Goal: Verbalizes/displays adequate comfort level or baseline comfort level Outcome: Progressing Problem: Safety-Adult Goal: Free from fall injury Outcome: Progressing Problem: Discharge Planning Goal: Discharge to home or other facility with appropriate resources Outcome: Progressing Problem: Altered Nutrient Intake Goal: Nutrient intake appropriate for improving, restoring or maintaining nutritional needs Outcome: Progressing Problem: Chronic Conditions and Co-morbidities Goal: Patient's chronic conditions and co-morbidity symptoms are monitored and maintained or improved Outcome: Progressing Problem: Mobility Goal: Improve mobility to highest level of function Outcome: Progressing Problem: Knowledge Deficit Goal: Patient/family/caregiver demonstrates understanding of disease process, treatment plan, medications, and discharge instructions Outcome: Progressing Problem: Coping Goal: Patient/family/caregiver able to verbalize concerns and demonstrate effective coping strategies Outcome: Progressing * Plan of Care - Angel Luis Frausto RN - 04/20/2025 9:40 AM EDT Problem: Pain - Adult Goal: Verbalizes/displays adequate comfort level or baseline comfort level Outcome: Progressing Problem: Safety-Adult Goal: Free from fall injury Outcome: Progressing Problem: Discharge Planning Goal: Discharge to home or other facility with appropriate resources Outcome: Progressing Problem: Altered Nutrient Intake Goal: Nutrient intake appropriate for improving, restoring or maintaining nutritional needs Outcome: Progressing Problem: Chronic Conditions and Co-morbidities Goal: Patient's chronic conditions and co-morbidity symptoms are monitored and maintained or improved Outcome: Progressing Problem: Mobility Goal: Improve mobility to highest level of function Outcome: Progressing Problem: Knowledge Deficit Goal: Patient/family/caregiver demonstrates understanding of disease process, treatment plan, medications, and discharge instructions Outcome: Not Progressing Problem: Coping Goal: Patient/family/caregiver able to verbalize concerns and demonstrate effective coping strategies Outcome: Not Progressing * Plan of Care - Gricelda Chávez RN - 04/20/2025 1:37 AM EDT Alert, declining to answer mental status questions, refusing repositioning at times despite encouragement and education. Paranoid at times and accusing RN of wanting to kill him and making statement such as I'm going to tonight , support and reassurance provided, 1:1 sitter at bedside, safety maintained. Pt. Denies shortness of breath, breathing unlabored, on continuous O2 sat monitoring with occasional brief desats as low as the 70s. MD Preet Ambriz made aware of desats. Incontinence care provided when pt agreeable, frequent checks, bed alarm on. Pt. Denies all pain. Once gtube confirmed ok to use, tube feeds started and medications given. Barrier cream applied to buttocks. Problem: Pain - Adult Goal: Verbalizes/displays adequate comfort level or baseline comfort level Outcome: Progressing Problem: Safety-Adult Goal: Free from fall injury Outcome: Progressing Problem: Discharge Planning Goal: Discharge to home or other facility with appropriate resources Outcome: Progressing Problem: Altered Nutrient Intake Goal: Nutrient intake appropriate for improving, restoring or maintaining nutritional needs Outcome: Progressing Problem: Chronic Conditions and Co-morbidities Goal: Patient's chronic conditions and co-morbidity symptoms are monitored and maintained or improved Outcome: Progressing Problem: Mobility Goal: Improve mobility to highest level of function Outcome: Progressing Problem: Knowledge Deficit Goal: Patient/family/caregiver demonstrates understanding of disease process, treatment plan, medications, and discharge instructions Outcome: Progressing Problem: Coping Goal: Patient/family/caregiver able to verbalize concerns and demonstrate effective coping strategies Outcome: Progressing * Op Note - Luiza Hamm MD - 04/19/2025 3:00 PM EDT INTERVENTIONAL RADIOLOGY OPERATIVE NOTE Procedure(s): G tube rescue Technical Sales Specialist(s): MD Luiza Posada MD Pre-operative Diagnosis: Dysphagia and aspiration maintained with G tube Post-operative Diagnosis: Same Description: Successful G tube rescue with placement of new 16 Fr Low profile G tube with 3 cm stoma EBL: none Anesthesia: Local only Specimens: none Findings: G tube study confirms appropriate position. It is ready to use. Plan: -G tube ready to use -Will plan for routine exchange in 6 months [place] [phone] for ANY questions or concerns. * Plan of Care - Dulce Cheung RN - 04/19/2025 10:12 AM EDT Problem: Safety-Adult Goal: Free from fall injury Outcome: Not Progressing Problem: Mobility Goal: Improve mobility to highest level of function Outcome: Not Progressing Problem: Knowledge Deficit Goal: Patient/family/caregiver demonstrates understanding of disease process, treatment plan, medications, and discharge instructions Outcome: Not Progressing At approx 0950 I attempted to administer medication via G-tube, patient became acutely agitated andself removed G-tube. He returned to calm state immediately after removal. States that he is unsure why he removed G-tube. Medical team called to bed for assessment and G-tube site cleansed with saline and covered with clean/dry/dressing. Radiology TIP FIXER was able to replace tube at bedside however patient is not currently amenable to receiving x-ray for placement confirmation. I was able to administer a few of his medications (see emar) however was not able to administer any other medications afterfriend left. He remains calm throughout shift and denies any SI/HI. Sitter at bedside with no further incidences during shift * Plan of Care - Gricelda Chávez RN - 04/19/2025 2:31 AM EDT Alert, declining to answer mental status questions, cooperative with repositioning and incontinencecare, using urinal, frequent checks, bed alarm on. Pt. On 1:1 sitter for SI, safety maintained. Pt.Denies all pain. Pt. Declining all medications, despite encouragement and education, MD Renay Yang made aware. Pt. Sleeping well overnight. Tube feeds running at goal via gtube. Barrier cream applied to buttocks. Problem: Discharge Planning Goal: Discharge to home or other facility with appropriate resources Outcome: Not Progressing Problem: Altered Nutrient Intake Goal: Nutrient intake appropriate for improving, restoring or maintaining nutritional needs Outcome: Not Progressing Problem: Mobility Goal: Improve mobility to highest level of function Outcome: Not Progressing Problem: Knowledge Deficit Goal: Patient/family/caregiver demonstrates understanding of disease process, treatment plan, medications, and discharge instructions Outcome: Not Progressing Problem: Coping Goal: Patient/family/caregiver able to verbalize concerns and demonstrate effective coping strategies Outcome: Not Progressing * Liaison Communication - Sherman Zayas MD - 04/18/2025 2:53 PM EDT Communication note: Received epic chat from bedside nurse the patient now more paranoid, refusing care, now reporting suicidal ideation, and calling 911 saying that he wants to . Suspect this current symptoms are in setting of delirium causing psychosis and suicidality. But also, cannot rule out decompensation of schizoaffective disorder. - Recommended 1-1 sitter with the safety precautions per MD/RN primary team. - We will continue to evaluate need for potential section 12, pending clarity regarding if symptomsare primarily psychiatric versus in setting of delirium. - Although I did not perform a capacity assessment, patient does demonstrate limited ability to understand or appreciate current medical illness in setting of suspected delirium. If patient were to attempt to leave AMA, would encourage primary team to assess for capacity to make this decision. Psychiatry can assist as able. Please continue the following home psychiatric medications: - Clozapine 25 mg daily and 125 mg nightly - Bupropion 100 mg 3 times daily - Trazodone 150 mg nightly -May offer trazodone 12.5 mg twice daily as needed anxiety, irritability -Please continue patient's Sinemet and other home medications as per primary team - Please continue delirium precautions for patient. -Psychiatry will continue to follow. Sherman Zayas MD Psychiatry PGY3 * Plan of Care - Param Beltrán RN - 04/18/2025 12:20 PM EDT Problem: Pain - Adult Goal: Verbalizes/displays adequate comfort level or baseline comfort level Outcome: Progressing Problem: Safety-Adult Goal: Free from fall injury Outcome: Progressing Problem: Discharge Planning Goal: Discharge to home or other facility with appropriate resources Outcome: Progressing Problem: Altered Nutrient Intake Goal: Nutrient intake appropriate for improving, restoring or maintaining nutritional needs Outcome: Progressing Problem: Chronic Conditions and Co-morbidities Goal: Patient's chronic conditions and co-morbidity symptoms are monitored and maintained or improved Outcome: Progressing Problem: Mobility Goal: Improve mobility to highest level of function Outcome: Progressing Problem: Post operative care Goal: Post-operative patient will remain free of complications following surgery Outcome: Progressing Problem: Knowledge Deficit Goal: Patient/family/caregiver demonstrates understanding of disease process, treatment plan, medications, and discharge instructions Outcome: Progressing Problem: Coping Goal: Patient/family/caregiver able to verbalize concerns and demonstrate effective coping strategies Outcome: Progressing * Plan of Care - Aisha Will RN - 04/18/2025 6:53 AM EDT Pt refusing all care from this RN. All meds, assessments, tube feeds refused, MD Ambriz aware. Pt education provided and this RN was told go away. Pt refused repositioning. Frequent checks performed. Problem: Pain - Adult Goal: Verbalizes/displays adequate comfort level or baseline comfort level Outcome: Progressing Problem: Safety-Adult Goal: Free from fall injury Outcome: Progressing Problem: Discharge Planning Goal: Discharge to home or other facility with appropriate resources Outcome: Progressing Problem: Altered Nutrient Intake Goal: Nutrient intake appropriate for improving, restoring or maintaining nutritional needs Outcome: Progressing Problem: Chronic Conditions and Co-morbidities Goal: Patient's chronic conditions and co-morbidity symptoms are monitored and maintained or improved Outcome: Progressing Problem: Mobility Goal: Improve mobility to highest level of function Outcome: Progressing Problem: Post operative care Goal: Post-operative patient will remain free of complications following surgery Outcome: Progressing Problem: Knowledge Deficit Goal: Patient/family/caregiver demonstrates understanding of disease process, treatment plan, medications, and discharge instructions Outcome: Progressing Problem: Coping Goal: Patient/family/caregiver able to verbalize concerns and demonstrate effective coping strategies Outcome: Progressing * Plan of Care - Nicole Willoughby RN - 04/17/2025 6:57 PM EDT Pt A&O x3, stating that we are in a place that is supposedly BI . HR slightly elevated, MD Becerra aware. Other VSS, on RA. Pt refusing all afternoon and evening medications, MD Becerra and Pb aware. Pt stating multiple times that this RN and the other HC workers aren't who we say we are and that this isnt' BI, it's all a farce . This RN attempted to reassure the pt that we are here to help him and make sure that he is safe, pt told this RN to just leave him alone . ordered for tube feeds. This RN went in and attempted to educate the pt about the importance of tube feeds- pt refused and told this RN to just stop talking and leave . Wound nurse consulted today. All meds through g tube. Pt refusing to eat or drink after breakfast. Refusing Q2 repo. Frequent safety checks performed, safety maintained. Problem: Pain - Adult Goal: Verbalizes/displays adequate comfort level or baseline comfort level Outcome: Progressing Problem: Safety-Adult Goal: Free from fall injury Outcome: Progressing Problem: Discharge Planning Goal: Discharge to home or other facility with appropriate resources Outcome: Progressing Problem: Altered Nutrient Intake Goal: Nutrient intake appropriate for improving, restoring or maintaining nutritional needs Outcome: Progressing Problem: Chronic Conditions and Co-morbidities Goal: Patient's chronic conditions and co-morbidity symptoms are monitored and maintained or improved Outcome: Progressing Problem: Mobility Goal: Improve mobility to highest level of function Outcome: Progressing Problem: Post operative care Goal: Post-operative patient will remain free of complications following surgery Outcome: Progressing Problem: Knowledge Deficit Goal: Patient/family/caregiver demonstrates understanding of disease process, treatment plan, medications, and discharge instructions Outcome: Progressing Problem: Coping Goal: Patient/family/caregiver able to verbalize concerns and demonstrate effective coping strategies Outcome: Progressing * Care Coordination Note - Demetra White RN - 04/17/2025 2:28 PM EDT Images from the original note were not included. [facility] Case Management Admission Note Admitted from: Residential Facility ([facility] Transfer from an acute care hospital? No Readmission within 30 days? No Previously active with services? No Health Care Proxy in the chart?: Yes Guardian? No Cárdenas? No MOLST? No Workmen's Compensation? (If yes, please also indicate name of insurer, claim #, health insurance adjuster if applicable) No Notified [employer]?: No Vehicle Accident? (If yes, please also indicate name of insurer, claim #, health insurance adjuster if applicable) No Payor Concerns?: No Anticipated Case Management Action: The Nurse [employer] Dispatcher will continue to follow the patient and assist as needed if any post discharge needs should be required during this hospitalization. Has the patient, their employment representative, or physician requested a discharge planning evaluation? Yes Was the patient discussed in Multidisciplinary Rounds (MDR)?: Yes Initial Care Coordination Assessment Patient: Carter Raymundo : 1955 Attending: Bonifacio Agudelo MD Admit Date: 04/15/2025 Inpatient Status Admit Date: 04/16/25 Primary Care Physician: Kilo Huynh Discharge Planning Lives with: Other (Comment) (permanent residence is [facility]; admitted from [facility] at [facility]) In the last 12 months, was there a time when you were not able to pay the mortgage or rent on time?: No Support Systems: Family members Type of Residence: nursing home facility, Assisted living Home Care Services: No In the past 12 months, has lack of transportation kept you from medical appointments or from getting medications?: No In the past 12 months, has lack of transportation kept you from meetings, work, or from getting things needed for daily living?: No CM and MD met with patient at bedside; he said that he did not want to speak with us at that time. He gave verbal permission to speak with brother/HCP, Delvin. Met with Delvin. Per Delvin, patient is not at baseline mental status; states that he appears paranoid, lost his sense of humor and patient isdeclining to speak with him. At baseline, he states that he speaks with his brother, is friendly, and participates with care. Patient admitted from [facility] where he was for STR. Spoke with MITESH Sterling ph: [phone] at [facility] who states that patient was receiving PT, OT and SOLAR DESIGN ENGINEER services; states that the was participatory and that they had been working to advance his diet so that he does not require TF. He lives at [facility] and they cannot care for a peg with TF. [facility] is able to accept back, pending patient's participation, PT recommendation and psych clearance. Brother would like to be involved in conversations regarding disposition, especially with psychiatry. Primary team in communication with psychiatry team re: ongoing plan of care and disposition. CM following. Demetra White RN 04/17/2025 2:28 PM * Plan of Care - Joselin Richmond RN - 04/16/2025 7:52 PM EDT Assumed care of pt approx 1800. AxOx3. Baseline tremors. RA, cont O2. G tube dry, intact. Voiding to urinal. x1T/R. Bed alarm on, call stein in reach, safety maintained. Problem: Pain - Adult Goal: Verbalizes/displays adequate comfort level or baseline comfort level Outcome: Progressing Problem: Safety-Adult Goal: Free from fall injury Outcome: Progressing Problem: Discharge Planning Goal: Discharge to home or other facility with appropriate resources Outcome: Progressing Problem: Altered Nutrient Intake Goal: Nutrient intake appropriate for improving, restoring or maintaining nutritional needs Outcome: Progressing Problem: Chronic Conditions and Co-morbidities Goal: Patient's chronic conditions and co-morbidity symptoms are monitored and maintained or improved Outcome: Progressing Problem: Mobility Goal: Improve mobility to highest level of function Outcome: Progressing Problem: Post operative care Goal: Post-operative patient will remain free of complications following surgery Outcome: Progressing Problem: Knowledge Deficit Goal: Patient/family/caregiver demonstrates understanding of disease process, treatment plan, medications, and discharge instructions Outcome: Progressing Problem: Coping Goal: Patient/family/caregiver able to verbalize concerns and demonstrate effective coping strategies Outcome: Progressing * Hospital Course - Anabel Melchor MD - 04/16/2025 2:31 PM EDT Transitional Issues For Psychiatry [] Please continue to monitor Qtc with at least weekly ECGs [] Please continue aggressive bowel regimen as he has constipation with clozapine. Discharge psychiatric regimen: -clozapine to 25mg qAM + 225mg qHS -haloperidol 1mg qAM + 3mg qHS -trazodone 150mg qHS -depakote 500mg BID For PCP [ ] Consider ASA for his history of CAD in outpatient setting [ ] Consider sleep study in outpatient setting for his transient episodes of hypoxemia [ ] Was intermittently hypertensive to 140-150 inpatient, not on anti- hypertensives prior to admission. Consider starting BP medication. [] Re-evaluation with SOLAR DESIGN ENGINEER once he has had increased improvement in his overall functionality. Brief Hospital Course Carter Raymundo is a 69 y.o. male with a relevant past medical history of HTN, CKD, schizoaffectivedisorder, and drug-induced parkinsonism, who presented with unresponsiveness, asphaia, and possibleleft facial droop. CT and MRI head ruled out stroke, and TME workup was negative. He had a few transient episodes of hypoxia without fever, leukocytosis, and any localizing signs and symptoms pointing towards potential aspiration pneumonitis. Additionally, he had several episodes of unresponsiveness that were not consistent with catatonia per Psychiatry, which resolved. He was admitted to medicine for monitoring as clozapine dose was adjusted, TME exonerated, and then for placement. Course was complicated by COVID and pneumonia with an O2 requirement, which improved with remdesivir and HAP coverage. Marked improvement in mental status 06/08, which fluctuated with periods of agitation, suicidal ideation, and paranoid. Sustained improvement week of 06/15, with decrease in paranoia and suicidal ideation, and improvements in physical ability with PT with the ability to ambulate from bed to chair, but was still decondiiton. Throughout the rest of his course, he has continued to have suicidalideation and paranoia at times and has been engaging in exam. Ultimately, he was medically stable and accepted at [facility] for continued psychiatric care and support. Carter and his brother Delvin were in agreement of transfer. Problem Based Hospital Course # Schizoaffective disorder # Transient unresponsiveness, resolved # Acute delirium, resolved # Suicidal ideation, improving/resolved # Acute psychosis, improving Patient initially presented with acute onset of unresponsiveness, aphasia, and concern for facial asymmetry. CTH w/o stroke. MRIb normal. Workup for toxic metabolic encephalopathy negative. Multiple EEGs with no evidence of seizures. During admission, has had multiple triggers called for unresponsiveness (not true catatonia per psych) with no clear trigger. Labs from triggers thus far have all been unremarkable. His ongoing presentation is likely secondary to acute delirium superimposed on known decompensated schizoaffective disorder that is persistent even with careful titration of his psychiatric medications. Titrated his psychiatric medications carefully with the help of Psychiatry. Meets Section 12 criteria. Week of 06/08 marked improvement in his alertness, insight, ability to communicate with the team, memory and self awareness and was able to work with PT and SOLAR DESIGN ENGINEER. However, at the same time he also began endorsing SI. On 06/12 evaluated by psychiatry and determined presentation consistent with acute psychosis in the setting of schizoaffective disorder, delirium and/or underlyingneurocognitive disorder (not previously diagnosed per records). Interdisciplinary rounds 06/12 with discussion of rehab vs psychiatric facility. Main barriers either direction will be physical strength/ ability to be somewhat independent (for a psych facility) vs his active psychosis and SI. He was a ccepted to [facility] on 06/25. # Oropharyngeal Dysphagia with G-Tube Dependence # Transient hypoxia # C/f aspiration pneumonitis Patient with episode of hypoxia in ED, quickly resolved without intervention.Patient with history of oropharyngeal dysphagia with G tube in place. High risk for aspiration and given transient nature suspect this was the driving etiology of hypoxia. Pulled G-tube ??2 (replaced 05/12). Variable PO tole ryanne; aspiration risk high. High risk of complication with aspiration/pneumonia and would recommend that he remain NPO given potential medical setback in psych placement. However, patient 06/08 with improvements in mental status, could re- consider SOLAR DESIGN ENGINEER and video swallow. Discussion with HCP that he hopes Carter will be eventually able to transition from the G tube back to PO after swallow therapy. SOLAR DESIGN ENGINEER conversation 06/11 with barium swallow - still aspirating but improvement from prior. Per SOLAR DESIGN ENGINEER onreview of his long history of dysphagia and swallow studies, he will likely always be at risk for aspiration and unlikely to meet nutritional needs on a full PO diet. Reasonable for PO for pleasure, with the understanding he will always be at risk for aspirating but we can minimize risk with oral hygiene, PT and proper precautions. Discussed with HCP who is in favor of PO for pleasure as well as patient who verbalized understanding that he is still at risk for aspiration and that we know he is aspirating. Discussed with HCP that it is likely he will need to have the G tube indefinitely to meet his nutritional needs - which will warrant further discussion in the future as it may not align with the patients GOC, QOL. He was able to tolerate pureed foods and liquids for comfort. #COVID +, resolved #LLL Consolidation, resolved RVP sent 05/24 for increased tachycardia and transient hypoxemia with O2 requirement. He was found simone COVID positive. Also had CXR with new LLL consolidation (prior XR 2 days prior). He was started on remdesivir given he had medication interactions with Paxlovid and HAP coverage with full recovery. #Constipation with intermittent diarrhea Was maintained on aggressive bowel regimen while on clozpine. Received standing miralax, senna, lactulose, daily mag citrate. #Leg pain/weakness # History of L4-L5 laminectomy Concern overnight 06/18 for leg pain with patient c/f stroke vs DVT. Overnight exam reassuring. In the am, patient continued to feel something was off with his left leg, but described more as pain/ tingling with exam revealing skin hypersensitivity without overt signs concerning for a DVT. Differential included stroke given the weakness in the L leg compared to right with leg lift, however, given overall reassuring neurological exam and more concern for pain with sensitive skin exam unlikely a neurologic etiology. He also has chronic lower back pain and did have some pain with passive lifting of leg down the leg, c/f sciatica. Not noted on PT session 06/18 or to have any new lower leg deficits. # Sinus Tachycardia Pt consistently tachycardic in 90s - low 100s during this hospitalization. EKG's to date all consistent with sinus tachycardia, suspect medication related. # Drug-induced Parkinsonism Discontinued home sinemet tapered and discontinued (05/28) for increased risk of psychosis # CAD # HTN Continued home statin # CKD Trended Cr, was at baseline. # BPH Continued home tamsulosin # GERD Continued home pepcid Tinea corporis/pedis, improving Topical ketoconazole cream to feet/calf with improvement * ED Obs Note - Lela Martinez MD - 04/16/2025 12:13 PM EDT ED OBSERVATION NOTE Brief HPI and ED Course Please see the initial ED HPI for further details. Briefly, patient is a 69 y.o. male with a history of 69 y.o. male with a history of 9 y.o. male with history of dysphagia s/p recent G tube placement, schizoaffective disorder, drug-induced parkinsonism, CKD who presents with AMS. Patient was brought in by EMS from [facility]. Brought here unresponsive initially activated code stroke but ultimately thought to be catatonia workup has been unrevealing and patient was placed in ED observation for psychiatric evaluation and further care PE This AM, patient is awake and alert Physical Exam Vitals: 04/16/25 0922 BP: Pulse: Resp: Temp: SpO2: 100% Constitutional: alert, in no acute distress HEENT: Normocephalic, atraumatic Resp: Normal resp rate. CV: RRR. GI: Nondistended. MSK: No deformity. Skin: Warm, dry. Neuro: Alert, moving all extremities. Medical Decision Making Patient in observation for catatonia concern for altered mental status workup has been negative this morning patient is awake and alert. Reviewed patient's labs/imaging and ED course. Plan to discuss with psychiatry restart medications Lela Martinez MD 04/16/25 1213 * Attestation Note - Dane Ayala MD - 04/15/2025 6:10 PM EDT [facility] Emergency Department ED ATTESTATION NOTE I was physically present during the evans or critical portions of the service performed by the resident and participated in the management of the patient. Please note any additions and/or modificationsto their documentation in my note below. Briefly, Carter Raymundo is a 69 y.o. male with history of dysphagia s/p recent G tube placement, schizoaffective disorder, drug-induced parkinsonism, CKD who presents with AMS. BIBEMS from [facility], [facility] 4:15pm. On room check at 5:30pm, patient noted to be completely aphasic and unable to follow commands. Not on AC. Pt unable to provide further hx. For EMS, VSS, BG 74. On arrival, patient's vitals are remarkable for tachycardia to 100s. On exam, NIHSS 28, patient aphasic and blankly staring, not following commands or tracking with his eyes, does not blink to threator withdraw to painful stimuli, does not appear to be in any distress. Differential diagnosis includes but is not limited to stroke, ICH, toxic metabolic encephalopathy, catatonia. Code stroke activated, CTA head/neck without acute findings. D/w neurology, given nonfocal exam, deferring TNK. Case d/w psychiatry, they agree with high concern for catatonia, starting benzodiazepines, and inpatient psychiatry bed search. . Additional MDM Details Independent sources of history: EMS Treatments considered: TNK considered per above I independently interpreted the following tests: CXR Discussion with other providers: neurology, psychiatry Chronic conditions affecting patient care: schizoaffective, drug induced parkinsonism ED Course ED Course as of 04/16/25 1235 SunApr 15, 20252007 XR Chest 2 VW [CJ] 2007 CT Angiogram Head Neck Code Stroke : Arteriogram WET READ: This is a wet read. Noncontrast CT head: [no evidence of acute large vascular territory infarction or hemorrhage.] Patent [place] without evidence of substantial stenosis or occlusion. Patent bilateral cervical [carotid] and [vertebral] arteries without evidence of [stenosis >70% by NASCET criteria,] [occlusion,][or dissection]. Full read pending by neuroradiology. [CJ] ED Course User Index [CJ] Edwin Conner MD EKG NSR at 98, normal axis, qtc 500ms, no ST segment or T wave abnormalities ED Critical Care Labs I independently interpreted the following labs: Labs Reviewed COMPREHENSIVE METABOLIC PANEL - Abnormal; Notable for the following components: Result Value BUN 25 (*) Glucose, Blood 104 (*) Alkaline Phosphatase 182 (*) All other components within normal limits APTT - Abnormal; Notable for the following components: PTT 42 (*) All other components within normal limits TROPONIN (ALL) - Abnormal; Notable for the following components: Troponin T HS 82 (*) All other components within normal limits URINALYSIS WITH URINE CULTURE REFLEX - Abnormal; Notable for the following components: Mucous Threads Rare (*) All other components within normal limits CBC AND DIFFERENTIAL - Abnormal; Notable for the following components: RBC 4.18 (*) Hemoglobin 13.2 (*) Hematocrit 39.6 (*) RDW-SD 48.0 (*) Neutrophil 77.6 (*) Lymphocyte 13.5 (*) Eosinophil 0.0 (*) Immature Granulocyte (Villard, Myelo, Promyelocyte) 0.8 (*) Absolute Neutrophil Count 7.07 (*) Absolute Eosinophil Count 0.00 (*) All other components within normal limits HS TROPONIN T (REFLEX 1HR, 3HR) - Abnormal; Notable for the following components: Troponin T HS 85 (*) All other components within normal limits TOXICOLOGY SCREEN, BLOOD - Abnormal; Notable for the following components: Salicylate Level, Blood <1 (*) All other components within normal limits HS-TROPONIN T, 1HR - Abnormal; Notable for the following components: Troponin T HS 83 (*) All other components within normal limits POCI GLUCOSE - Abnormal; Notable for the following components: Glucose, POC 110 (*) All other components within normal limits PROTIME-INR - Normal LACTIC ACID WITH REFLEX - Normal TSH - Normal AMMONIA - Normal CK (CREATINE KINASE) - Normal DRUG SCREEN, URINE - Normal SARS COV2/INFLUENZA A/B AND RSV - Normal Narrative: Test performed by [employer] real-time PCR. BID UA WITH URINE CULTURE REFLEX Narrative: The following orders were created for panel order Urinalysis with Reflex to Urine Culture. Procedure Abnormality Status --------- ------ Urinalysis with Reflex t...[[id number]] Abnormal Final result Urine Micro Hold[[id number]] Final result Please view results for these tests on the individual orders. BID URINE HOLD TOXICOLOGY SCREEN, BLOOD POCT GLUCOSE, INSTRUMENT TYPE AND SCREEN BB RETYPE CBC AND DIFFERENTIAL Narrative: The following orders were created for panel order CBC and Differential. Procedure Abnormality Status --------- ------ CBC and Differential[[id number]] Abnormal Final result Please view results for these tests on the individual orders. RAINBOW DRAW RAINBOW DRAW Imaging I reviewed the following imaging studies: MRI Brain Without Contrast Final Result No acute intracranial abnormality. Specifically, no acute or recent infarction. WET READ: WET READ:~No acute intracranial abnormality. Angel Luis Tompkins [id number] [id number]. BY ELECTRONICALLY SIGNING THIS REPORT, I THE ATTENDING PHYSICIAN ATTEST THAT I HAVE REVIEWED THE IMAGES FOR THE ABOVE PROCEDURE(S) AND AGREE WITH THE FINDINGS DOCUMENTED. MD Deny Riley MD, electronically signed on Apr 16 2025 11:44AM XR Chest 2 VW Final Result Cardiac and mediastinal silhouettes are within normal limits. In the retrocardiac region of the left lower lobe, there is some patchy opacity on the frontal view, presumed to be consolidation. Difficult to evaluate for correlate on the lateral view as there appears to be substantial overlying soft tissue artifact along the posterior chest, which is extrinsic to the lungs. Repeat lateral radiographs may be useful, after removing these overlying structures. Casper Serrano MD, electronically signed on Apr 15 2025 09:35PM CT Angiogram Head Neck Code Stroke : Arteriogram Final Result HEAD CT: 1. No acute intracranial pathology. CTA HEAD/NECK: 1. Marked vertebral body osteophytosis at C5 results in moderate focal stenosis of the right vertebral artery. 2. Otherwise, no large vessel occlusion, flow-limiting stenosis, aneurysm or vascular malformation. 3. Status post C2-C5 ACDF. Persistent moderate multilevel degenerative change throughout the visualized spine. WET READ: WET READ:~This is a wet read. ~~Noncontrast CT head: no evidence of acute large vascular territory infarction or hemorrhage. ~~Patent [place] without evidence of substantial stenosis or occlusion.~~Patent bilateral cervical carotid and vertebral arteries without evidence of stenosis >70% by NASCET criteria, occlusion, or dissection .~~Full read pending by neuroradiology. ~ Valentin Mena [id number] [id number]: BY ELECTRONICALLY SIGNING THIS REPORT, I THE ATTENDING PHYSICIAN ATTEST THAT I HAVE REVIEWED THE IMAGES FOR THE ABOVE PROCEDURE(S) AND AGREE WITH THE FINDINGS DOCUMENTED. Red Pavon MD, electronically signed on Apr 16 2025 10:13AM ED Medications Ordered Medications carbidopa-levodopa (SINEMET) 25-100 mg per tablet 2 tablet (has no administration in time range) LORazepam (ATIVAN) tablet 1 mg (has no administration in time range) cloZAPine (CLOZARIL) tablet 25 mg (has no administration in time range) buPROPion (WELLBUTRIN) tablet 100 mg (has no administration in time range) iohexoL (OMNIPAQUE) 350 mg iodine/mL injection 70 mL (70 mL Intravenous Given 04/15/25 1842) LORazepam (ATIVAN) injection 1 mg (1 mg Intravenous Given 04/16/25 0025) acetaminophen (TYLENOL) tablet 1,000 mg (1,000 mg G-tube Given 04/16/25 0947) ED Vital Signs Vitals: 04/16/25 0230 04/16/25 0614 04/16/25 0853 04/16/25 0922 BP: 117/74 130/80 129/82 BP Location: Left arm Left arm Left arm Patient Position: Lying Lying Lying Pulse: 83 85 78 Resp: 17 (!) 22 15 Temp: 97.8 ??F (36.6 ??C) TempSrc: Oral SpO2: 97% 100% 100% 100% Diagnosis Clinical Impression 1. Altered mental status, unspecified altered mental status type Dane Ayala MD 04/16/25 1235 documented in this encounter Plan of Treatment Scheduled Orders Name Type Priority Associated Diagnoses Orde r Schedule IR Follow-Up Appointment Imaging Routine Aspiration into airway, sequela Ordered: 05/12/2025 IR Follow-Up Appointment Imaging Routine Aspiration pneumonitis (HCC) Expected: 08/12/2025 (Approximate), Expires: 05/12/2026 documented as of this encounter Procedures Procedure Name Priority Date/Time Associated Diagnosis Comments ECG 12-LEAD Routine 06/25/2025 11:19 AM EDT Abnormal electrocardiography RENAL FUNCTION PANEL Timed 06/22/2025 5:26 AM EDT CBC AND DIFFERENTIAL Timed 06/22/2025 12:37 AM EDT CBC AND DIFFERENTIAL Timed 06/22/2025 12:37 AM EDT ECG 12-LEAD Routine 06/18/2025 11:54 AM EDT Abnormal electrocardiography XR ABDOMEN AP Routine 06/16/2025 1:33 PM EDT VALPROIC ACID LEVEL Routine 06/15/2025 9 :42 PM EDT CLOZAPINE LEVEL,BLOOD Routine 06/15/2025 9:41 PM EDT VALPROIC ACID LEVEL, FREE Routine 06/15/2025 9:41 PM EDT ECG 12-LEAD Routine 06/15/2025 12:56 PM EDT Abnormal electrocardiography CBC Timed 06/15/2025 6:23 AM EDT PHOSPHORUS Timed 06/15/2025 6:22 AM EDT MAGNESIUM Timed 06/15/2025 6:22 AM EDT HEPATIC FUNCTION PANEL Timed 06/15/2025 6:22 AM EDT BASIC METABOLIC PANEL Timed 06/15/2025 6:22 AM EDT CBC Timed 06/12/2025 6:57 AM EDT PHOSPHORUS Timed 06/12/2025 6:57 AM EDT MAGNESIUM Timed 06/12/2025 6:57 AM EDT HEPATIC FUNCTION PANEL Timed 06/12/2025 6:57 AM EDT BASIC METABOLIC PANEL Timed 06/12/2025 6:57 AM EDT POCI GLUCOSE Routine 06/11/2025 1:54 PM EDT ECG 12-LEAD Routine 06/11/2025 11:23 AM EDT halfway current use of therapeutic drug FL MODIFIED BARIUM SWALLOW INCL SPEECH Routine 06/11/2025 10:30 AM EDT DIFFERENTIAL WITH WBC Routine 06/10/2025 7:20 AM EDT CBC Timed 06/10/2025 7:20 AM EDT PHOSPHORUS Timed 06/10/2025 7:20 AM EDT MAGNESIUM Timed 06/10/2025 7:20 AM EDT HEPATIC FUNCTION PANEL Timed 06/10/2025 7:20 AM EDT BASIC METABOLIC PANEL Timed 06/10/2025 7:20 AM EDT POCI GLUCOSE Routine 06/08/2025 12:13 PM EDT CBC Timed 06/08/2025 7:52 AM EDT PHOSPHORUS Timed 06/08/2025 7:52 AM EDT MAGNESIUM Timed 06/08/2025 7:52 AM EDT HEPATIC FUNCTION PANEL Timed 06/08/2025 7:52 AM EDT BASIC METABOLIC PANEL Timed 06/08/2025 7:52 AM EDT POCI GLUCOSE Routine 06/08/2025 6:00 AM EDT POCI GLUCOSE Routine 06/07/2025 6:35 PM EDT POCI GLUCOSE Routine 06/07/2025 11:57 AM EDT POCI GLUCOSE Routine 06/07/2025 5:59 AM EDT POCI GLUCOSE Routine 06/06/2025 11:54 PM EDT POCI GLUCOSE Routine 06/06/2025 5:43 PM EDT POCI GLUCOSE Routine 06/06/2025 2:14 PM EDT POCI GLUCOSE Routine 06/06/2025 6:41 AM EDT POCI GLUCOSE Routine 06/05/2025 5:36 PM EDT POCI GLUCOSE Routine 06/05/2025 6:13 AM EDT CBC Timed 06/05/2025 5:53 AM EDT PHOSPHORUS Timed 06/05/2025 5:53 AM EDT MAGNESIUM Timed 06/05/2025 5:53 AM EDT HEPATIC FUNCTION PANEL Timed 06/05/2025 5:53 AM EDT BASIC METABOLIC PANEL Timed 06/05/2025 5:53 AM EDT POCI GLUCOSE Routine 06/05/2025 12:41 AM EDT POCI GLUCOSE Routine 06/04/2025 6:40 PM EDT POCI GLUCOSE Routine 06/04/2025 12:07 PM EDT CBC Timed 06/04/2025 6:25 AM EDT PHOSPHORUS Timed 06/04/2025 6:25 AM EDT MAGNESIUM Timed 06/04/2025 6:25 AM EDT HEPATIC FUNCTION PANEL Timed 06/04/2025 6:25 AM EDT BASIC METABOLIC PANEL Timed 06/04/2025 6:25 AM EDT POCI GLUCOSE Routine 06/04/2025 5:17 AM EDT ECG 12-LEAD Routine 06/04/2025 5:14 AM EDT Chest pain, unspecified type POCI GLUCOSE Routine 06/04/2025 1:04 AM EDT POCI GLUCOSE Routine 06/03/2025 6:31 PM EDT POCI GLUCOSE Routine 06/03/2025 11:49 AM EDT CLOZAPINE LEVEL,BLOOD Routine 06/03/2025 6:08 AM EDT CBC Timed 06/03/2025 6:08 AM EDT PHOSPHORUS Timed 06/03/2025 6:08 AM EDT MAGNESIUM Timed 06/03/2025 6:08 AM EDT HEPATIC FUNCTION PANEL Timed 06/03/2025 6:08 AM EDT BASIC METABOLIC PANEL Timed 06/03/2025 6:08 AM EDT POCI GLUCOSE Routine 06/03/2025 5:50 AM EDT POCI GLUCOSE Routine 06/02/2025 11:44 PM EDT POCI GLUCOSE Routine 06/02/2025 5:24 PM EDT POCI GLUCOSE Routine 06/02/2025 12:13 PM EDT POCI GLUCOSE Routine 06/02/2025 5:59 AM EDT MANUAL DIFF AND MORPH Routine 06/02/2025 5:41 AM EDT CBC AND DIFFERENTIAL Timed 06/02/2025 5:41 AM EDT CBC AND DIFFERENTIAL Timed 06/02/2025 5:41 AM EDT PHOSPHORUS Timed 06/02/2025 5:41 AM EDT MAGNESIUM Timed 06/02/2025 5:41 AM EDT HEPATIC FUNCTION PANEL Timed 06/02/2025 5:41 AM EDT BASIC METABOLIC PANEL Timed 06/02/2025 5:41 AM EDT POCI GLUCOSE Routine 06/02/2025 12:15 AM EDT POCI GLUCOSE Routine 06/01/2025 6:00 PM EDT POCI GLUCOSE Routine 06/01/2025 11:38 AM EDT POCI GLUCOSE Routine 06/01/2025 6:46 AM EDT MANUAL DIFF AND MORPH Routine 06/01/2025 5:36 AM EDT CBC AND DIFFERENTIAL Timed 06/01/2025 5:36 AM EDT CBC AND DIFFERENTIAL Timed 06/01/2025 5:36 AM EDT PHOSPHORUS Timed 06/01/2025 5:36 AM EDT MAGNESIUM Timed 06/01/2025 5:36 AM EDT HEPATIC FUNCTION PANEL Timed 06/01/2025 5:36 AM EDT BASIC METABOLIC PANEL Timed 06/01/2025 5:36 AM EDT POCI GLUCOSE Routine 06/01/2025 12:53 AM EDT POCI GLUCOSE Routine 05/31/2025 5:39 PM EDT POCI GLUCOSE Routine 05/31/2025 12:43 PM EDT ECG 12-LEAD STAT 05/31/2025 10:34 AM EDT Tachycardia POCI GLUCOSE Routine 05/31/2025 6:09 AM EDT POCI GLUCOSE Routine 05/30/2025 12:35 PM EDT MANUAL DIFF AND MORPH Routine 05/30/2025 7:50 AM EDT CBC AND DIFFERENTIAL Timed 05/30/2025 7:50 AM EDT CBC AND DIFFERENTIAL Timed 05/30/2025 7:50 AM EDT PHOSPHORUS Timed 05/30/2025 7:50 AM EDT MAGNESIUM Timed 05/30/2025 7:50 AM EDT HEPATIC FUNCTION PANEL Timed 05/30/2025 7:50 AM EDT BASIC METABOLIC PANEL Timed 05/30/2025 7:50 AM EDT POCI GLUCOSE Routine 05/30/2025 5:38 AM EDT POCI GLUCOSE Routine 05/29/2025 11:49 PM EDT POCI GLUCOSE Routine 05/29/2025 5:32 PM EDT POCI GLUCOSE Routine 05/29/2025 12:23 PM EDT XR PORTABLE ABDOMEN Routine 05/29/2025 11:22 AM EDT ECG 12-LEAD STAT 05/29/2025 11:13 AM EDT Abnormal electrocardiography RBC WBC PLT MORPHOLGY Routine 05/29/2025 6:20 AM EDT CBC AND DIFFERENTIAL Timed 05/29/2025 6:20 AM EDT CBC AND DIFFERENTIAL Timed 05/29/2025 6:20 AM EDT PHOSPHORUS Timed 05/29/2025 6:20 AM EDT MAGNESIUM Timed 05/29/2025 6:20 AM EDT HEPATIC FUNCTION PANEL Timed 05/29/2025 6:20 AM EDT BASIC METABOLIC PANEL Timed 05/29/2025 6:20 AM EDT POCI GLUCOSE Routine 05/29/2025 5:38 AM EDT POCI GLUCOSE Routine 05/28/2025 11:56 PM EDT POCI GLUCOSE Routine 05/28/2025 5:50 PM EDT POCI GLUCOSE Routine 05/28/2025 12:23 PM EDT XR PORTABLE ABDOMEN Routine 05/28/2025 11:10 AM EDT POCI GLUCOSE Routine 05/28/2025 5:53 AM EDT C-REACTIVE PROTEIN Routine 05/28/2025 5: 53 AM EDT PHOSPHORUS Timed 05/28/2025 5:53 AM EDT MAGNESIUM Timed 05/28/2025 5:53 AM EDT HEPATIC FUNCTION PANEL Timed 05/28/2025 5:53 AM EDT BASIC METABOLIC PANEL Timed 05/28/2025 5:53 AM EDT MANUAL DIFF AND MORPH Routine 05/28/2025 5:52 AM EDT CBC AND DIFFERENTIAL Timed 05/28/2025 5:52 AM EDT CBC AND DIFFERENTIAL Timed 05/28/2025 5:52 AM EDT POCI GLUCOSE Routine 05/28/2025 12:00 AM EDT ECG 12-LEAD STAT 2025 9:30 PM EDT Abnormal electrocardiography CTA CHEST PE STAT 2025 9:[address] HEAD WO CONTRAST STAT 2025 8 :54 PM EDT LACTIC ACID WITH REFLEX STAT 2025 8:28 PM EDT BLOOD GAS, VENOUS STAT 2025 8:2 8 PM EDT CBC STAT 2025 8:23 PM EDT PHOSPHORUS STAT 2025 8:23 PM EDT MAGNESIUM STAT 2025 8:23 PM EDT COMPREHENSIVE METABOLIC PANEL STAT 2025 8:23 PM EDT CULTURE, RESPIRATORY (INCL GRAM) Routine 2025 5:55 PM EDT POCI GLUCOSE Routine 2025 5:49 PM EDT MRSA/SA BY PCR Routine 2025 3:35 PM EDT POCI GLUCOSE Routine 2025 2:37 PM EDT XR PORTABLE CHEST 1 VW STAT 2025 11:34 AM EDT MANUAL DIFF AND MORPH Routine 2025 6:34 AM EDT CBC AND DIFFERENTIAL Timed 2025 6:34 AM EDT CBC AND DIFFERENTIAL Timed 2025 6:34 AM EDT PHOSPHORUS Timed 2025 6:34 AM EDT MAGNESIUM Timed 2025 6:34 AM EDT HEPATIC FUNCTION PANEL Timed 2025 6:34 AM EDT BASIC METABOLIC PANEL Timed 2025 6:34 AM EDT CBC AND DIFFERENTIAL Timed 05/26/2025 7:16 AM EDT CBC AND DIFFERENTIAL Timed 05/26/2025 7:16 AM EDT PHOSPHORUS Timed 05/26/2025 7:16 AM EDT MAGNESIUM Timed 05/26/2025 7:16 AM EDT HEPATIC FUNCTION PANEL Timed 05/26/2025 7:16 AM EDT BASIC METABOLIC PANEL Timed 05/26/2025 7:16 AM EDT RBC WBC PLT MORPHOLGY Routine 05/25/2025 12:28 PM EDT CBC AND DIFFERENTIAL Timed 05/25/2025 12:28 PM EDT CBC AND DIFFERENTIAL Timed 05/25/2025 12:28 PM EDT ECG 12-LEAD Routine 05/25/2025 12:17 PM EDT halfway current use of therapeutic drug VALPROIC ACID LEVEL Routine 05/25/2025 7 :32 AM EDT RENAL FUNCTION PANEL Timed 05/25/2025 7:32 AM EDT BID URINE HOLD Routine 05/25/2025 5:11 AM EDT BID UA WITH URINE CULTURE REFLEX Routine 05/25/2025 5:11 AM EDT URINALYSIS WITH URINE CULTURE REFLEX Routine 05/25/2025 5:11 AM EDT CULTURE, BLOOD Routine 05/24/2025 6:58 PM EDT XR PORTABLE CHEST 1 VW STAT 05/24/2025 10:55 AM EDT SARS COV2/INFLUENZA A/B AND RSV Routine 05/24/2025 10:28 AM EDT CBC AND DIFFERENTIAL Routine 05/24/2025 6:28 AM EDT CBC AND DIFFERENTIAL Routine 05/24/2025 6:28 AM EDT PHOSPHORUS Routine 05/24/2025 6:27 AM EDT MAGNESIUM Routine 05/24/2025 6:27 AM EDT HEPATIC FUNCTION PANEL Routine 05/24/2025 6:27 AM EDT BASIC METABOLIC PANEL Routine 05/24/2025 6:27 AM EDT XR PORTABLE CHEST 1 VW Routine 05/22/2025 1:57 PM EDT CBC AND DIFFERENTIAL Timed 05/22/2025 7:01 AM EDT CBC AND DIFFERENTIAL Timed 05/22/2025 7:01 AM EDT ECG 12-LEAD Routine 05/21/2025 12:55 PM EDT Altered mental status, unspecified altered mental status type ECG 12-LEAD Routine 05/19/2025 11:42 AM EDT Schizoaffective disorder, depressive type (HCC) POCI GLUCOSE Routine 05/16/2025 12:26 PM EDT CBC AND DIFFERENTIAL Timed 05/15/2025 6:56 AM EDT CBC AND DIFFERENTIAL Timed 05/15/2025 6:56 AM EDT CBC AND DIFFERENTIAL Routine 05/14/2025 3:40 PM EDT CBC AND DIFFERENTIAL Routine 05/14/2025 3:40 PM EDT RENAL FUNCTION PANEL Routine 05/14/2025 3:40 PM EDT XR PORTABLE ABDOMEN STAT 05/12/2025 6 :34 PM EDT IR G TUBE RESCUE Routine 05/12/2025 5:00 PM EDT ECG 12-LEAD Routine 05/11/2025 11:34 PM EDT Altered mental status, unspecified altered mental status type POCI GLUCOSE Routine 05/11/2025 11:31 PM EDT CBC AND DIFFERENTIAL Timed 05/09/2025 7:24 AM EDT CBC AND DIFFERENTIAL Timed 05/09/2025 7:24 AM EDT CBC AND DIFFERENTIAL Timed 05/08/2025 6:53 AM EDT CBC AND DIFFERENTIAL Timed 05/08/2025 6:53 AM EDT XR PORTABLE CHEST 1 VW STAT 05/07/2025 1:01 PM EDT COVID/FLU SUSPECT Routine 05/07/2025 12:20 PM EDT CBC AND DIFFERENTIAL Timed 05/07/2025 6:37 AM EDT CBC AND DIFFERENTIAL Timed 05/07/2025 6:37 AM EDT ECG 12-LEAD Routine 05/06/2025 3:43 PM EDT Schizoaffective disorder, depressive type (HCC) CBC AND DIFFERENTIAL Timed 05/06/2025 3:23 PM EDT CBC AND DIFFERENTIAL Timed 05/06/2025 3:23 PM EDT CBC AND DIFFERENTIAL Timed 05/05/2025 6:35 AM EDT CBC AND DIFFERENTIAL Timed 05/05/2025 6:35 AM EDT XR PORTABLE CHEST 1 VW STAT 05/03/2025 11:00 AM EDT XR PORTABLE ABDOMEN Routine 05/02/2025 5 :10 PM EDT EEG CONCLUDE STUDY Routine 05/01/2025 11:03 AM EDT HC VEEG BY TECH EA INCR 12-26 HR UNMONITORED Routine 05/01/2025 6:30 AM EDT Unclassified epileptic seizures (HCC) CBC AND DIFFERENTIAL Timed 05/01/2025 6:23 AM EDT CBC AND DIFFERENTIAL Timed 05/01/2025 6:23 AM EDT HC VEEG BY TECH 2-12 HOURS UNMONITORED Routine 04/30/2025 2:04 PM EDT Unclassified epileptic seizures (HCC) URINALYSIS WITH MICROSCOPIC Routine 04/30/2025 12:21 PM EDT XR ABDOMEN AP Routine 04/30/2025 11:38 AM EDT ECG 12-LEAD STAT 04/30/2025 10:20 AM EDT Altered mental status, unspecified altered mental status type D-DIMER STAT 04/30/2025 10:14 AM EDT CBC STAT 04/30/2025 10:10 AM EDT PHOSPHORUS STAT 04/30/2025 10:10 AM EDT MAGNESIUM STAT 04/30/2025 10:10 AM EDT LACTATE DEHYDROGENASE STAT 04/30/2025 10:10 AM EDT CK (CREATINE KINASE) STAT 04/30/2025 10:10 AM EDT HEPATIC FUNCTION PANEL STAT 04/30/2025 10:10 AM EDT BASIC METABOLIC PANEL STAT 04/30/2025 10:10 AM EDT POCI GLUCOSE Routine 04/30/2025 9:42 AM EDT ECG 12-LEAD Routine 04/29/2025 11:54 AM EDT Chest pain, unspecified type CBC AND DIFFERENTIAL Routine 04/28/2025 4:56 AM EDT CBC AND DIFFERENTIAL Routine 04/28/2025 4:56 AM EDT BASIC METABOLIC PANEL Routine 04/28/2025 4:56 AM EDT XR ABDOMEN AP Routine 04/27/2025 4:49 PM EDT CBC STAT 04/27/2025 1:13 PM EDT COMPREHENSIVE METABOLIC PANEL Routine 04/27/2025 1:13 PM EDT POCI GLUCOSE Routine 04/27/2025 11:49 AM EDT HC VEEG BY TECH EA INCR 12-26 HR UNMONITORED Routine 04/24/2025 9:35 AM EDT Unclassified epileptic seizures (HCC) CBC AND DIFFERENTIAL Routine 04/24/2025 7:58 AM EDT CBC AND DIFFERENTIAL Routine 04/24/2025 7:58 AM EDT PHOSPHORUS Routine 04/24/2025 7:58 AM EDT MAGNESIUM Routine 04/24/2025 7:58 AM EDT BASIC METABOLIC PANEL Routine 04/24/2025 7:58 AM EDT POCI GLUCOSE Routine 04/23/2025 9:39 PM EDT BID URINE HOLD Routine 04/23/2025 9:26 PM EDT BID UA WITH URINE CULTURE REFLEX Routine 04/23/2025 9:26 PM EDT URINALYSIS WITH URINE CULTURE REFLEX Routine 04/23/2025 9:26 PM EDT DIFFERENTIAL WITH WBC Routine 04/23/2025 7:21 AM EDT CBC Routine 04/23/2025 7:21 AM EDT PHOSPHORUS Routine 04/23/2025 7:21 AM EDT MAGNESIUM Routine 04/23/2025 7:21 AM EDT BASIC METABOLIC PANEL Routine 04/23/2025 7:21 AM EDT HC VEEG BY [email or web address] EA INCR 12-26 HR UNMONITORED Routine 04/23/2025 7:08 AM EDT Unclassified epileptic seizures (HCC) HC EEG W O VIDEO BY TECH 2-12 HR UNMONITORED Routine 04/22/2025 5:30 PM EDT Unclassified epileptic seizures (HCC) XR PORTABLE CHEST 1 VW STAT 04/22/2025 2:59 PM EDT CLOZAPINE LEVEL,BLOOD Routine 04/22/2025 12:02 PM EDT PROLACTIN Routine 04/22/2025 12:[address] HEAD WO CONTRAST STAT 04/22/2025 11:55 AM EDT ECG 12-LEAD Routine 04/22/2025 11:27 AM EDT Tachycardia LACTIC ACID Routine 04/22/2025 11:21 AM EDT CBC Routine 04/22/2025 11:21 AM EDT BLOOD GAS, VENOUS Routine 04/22/2025 11:21 AM EDT CK (CREATINE KINASE) Routine 04/22/2025 11:21 AM EDT HEPATIC FUNCTION PANEL Routine 04/22/2025 11:21 AM EDT BASIC METABOLIC PANEL Routine 04/22/2025 11:21 AM EDT POCI GLUCOSE Routine 04/22/2025 11:07 AM EDT CBC AND DIFFERENTIAL Routine 04/22/2025 6:56 AM EDT CBC AND DIFFERENTIAL Routine 04/22/2025 6:56 AM EDT CBC Timed 04/20/2025 6:54 AM EDT PHOSPHORUS Timed 04/20/2025 6:54 AM EDT MAGNESIUM Timed 04/20/2025 6:54 AM EDT BASIC METABOLIC PANEL Timed 04/20/2025 6:54 AM EDT XR PORTABLE ABDOMEN Routine 04/19/2025 6 :48 PM EDT IR G TUBE RESCUE Routine 04/19/2025 3:15 PM EDT CBC Timed 04/19/2025 6:10 AM EDT PHOSPHORUS Timed 04/19/2025 6:10 AM EDT MAGNESIUM Timed 04/19/2025 6:10 AM EDT BASIC METABOLIC PANEL Timed 04/19/2025 6:10 AM EDT CBC Timed 04/18/2025 7:10 AM EDT PHOSPHORUS Timed 04/18/2025 7:10 AM EDT MAGNESIUM Timed 04/18/2025 7:10 AM EDT BASIC METABOLIC PANEL Timed 04/18/2025 7:10 AM EDT VITAMIN D,25OH Routine 04/17/2025 7:40 AM EDT CBC Timed 04/17/2025 7:40 AM EDT C-REACTIVE PROTEIN Routine 04/17/2025 7: 40 AM EDT PHOSPHORUS Timed 04/17/2025 7:40 AM EDT MAGNESIUM Timed 04/17/2025 7:40 AM EDT BASIC METABOLIC PANEL Timed 04/17/2025 7:40 AM EDT XR CHEST 2 VW STAT 04/16/2025 2:55 PM EDT SARS COV2/INFLUENZA A/B AND RSV STAT 04/16/2025 9:24 AM EDT BID URINE HOLD STAT 04/16/2025 6:54 AM EDT BID UA WITH URINE CULTURE REFLEX STAT 04/16/2025 6:54 AM EDT DRUG SCREEN, URINE STAT 04/16/2025 6: 54 AM EDT URINALYSIS WITH URINE CULTURE REFLEX STAT 04/16/2025 6:54 AM EDT HS-TROPONIN T, 1HR STAT 04/15/2025 11:33 PM EDT LACTIC ACID WITH REFLEX STAT 04/15/2025 11:33 PM EDT BB RETYPE STAT 04/15/2025 11:33 PM EDT CK (CREATINE KINASE) Routine 04/15/2025 11:33 PM EDT AMMONIA STAT 04/15/2025 11:33 PM EDT MRI BRAIN WO CONTRAST STAT 04/15/2025 11:19 PM EDT HS TROPONIN T (REFLEX 1HR, 3HR) STAT 04/15/2025 9:18 PM EDT TOXICOLOGY SCREEN, BLOOD STAT 04/15/2025 9:18 PM EDT XR CHEST 2 VW STAT 04/15/2025 8:05 PM EDT ECG 12-LEAD STAT 04/15/2025 6:[address] ANGIOGRAM HEAD NECK CODE STROKE STAT 04/15/2025 6:40 PM EDT TROPONIN (ALL) STAT 04/15/2025 6:17 PM EDT CBC AND DIFFERENTIAL STAT 04/15/2025 6:17 PM EDT APTT STAT 04/15/2025 6:17 PM EDT PROTIME-INR STAT 04/15/2025 6:17 PM EDT CBC AND DIFFERENTIAL STAT 04/15/2025 6:17 PM EDT TYPE AND SCREEN STAT 04/15/2025 6:17 PM EDT TSH Routine 04/15/2025 6:17 PM EDT COMPREHENSIVE METABOLIC PANEL STAT 04/15/2025 6:17 PM EDT POCI GLUCOSE Routine 04/15/2025 6:15 PM EDT documented in this encounter Results * ECG 12 lead (06/25/2025 11:19 AM EDT) Ventricular Heart Rate 101 BPM EKG BUR MUSE Atrial Heart Rate 101 BPM EKG BUR MUSE LA Interval 142 ms EKG BUR MUSE QRSD Interval 108 ms EKG BUR MUSE QT Interval 372 ms EKG BUR MUSE QTC Interval 482 ms EKG BUR MUSE P Mathews 30 degrees EKG BUR MUSE R Mathews -29 degrees EKG BUR MUSE T Wave Mathews 30 degrees EKG BUR MUSE 06/25/2025 11:1 8 AM EDT 06/26/2025 6:13 PM EDT Narrative EKG BUR MUSE - 06/26/2025 6:13 PM EDT Sinus tachycardia left ventricular hypertrophy Abnormal ECG When compared with ECG of 18-Jun-2025 11:53, No significant change was found Procedure Note Keaton Amaro MD - 06/26/2025 Sinus tachycardia left ventricular hypertrophy Abnormal ECG When compared with ECG of 18-Jun-2025 11:53, No significant change was found Mariano Crabtree MD ECG ORDERABLES Final Result EKG KATH BOLIVAR [address] [place] [id number] * (ABNORMAL) Renal Function Panel (06/22/2025 5:26 AM EDT) Sodium 142 135 - 147 mmol/L 06/22/2025 6:44 AM EDT [facility] Potassium 4.2 3.5 - 5.4 mmol/L 06/22/2025 6:44 AM EDT [facility] Chloride 103 96 - 108 mmol/L 06/22/2025 6:44 AM EDT [facility] Total CO2/Bicarbonate 28 22 - 32 mmol/L 06/22/2025 6:44 AM EDT [facility] Anion Gap 11 10 - 18 mmol/L 06/22/2025 6:44 AM EDT [facility] BUN 27(H) 6 - 20 mg/dL 06/22/2025 6:44 AM EDT [facility] Creatinine, Blood 0.80 0.50 - 1.20 mg/dL 06/22/2025 6:44 AM EDT [facility] Glucose, Blood 141(H) 70 - 100 mg/dL 06/22/2025 6:44 AM EDT [facility] Calcium 9.0 8.4 - 10.3 mg/dL 06/22/2025 6:44 AM EDT [facility] Albumin, Blood 3.1(L) 3.5 - 5.2 g/dL 06/22/2025 6:44 AM EDT [facility] Phosphorus 3.7 2.7 - 4.5 mg/dL 06/22/2025 6:44 AM EDT [facility] Magnesium, Blood 2.2 1.6 - 2.6 mg/dL 06/22/2025 6:44 AM EDT [facility] Estimated GFR(CKD-EPI) 96 mL/min/BSA 06/22/2025 6:44 AM EDT [facility] Blood PERIPHERAL BLOOD SPECIMEN / Unknown Venipuncture / Unknown 06/22/2025 5:26 AM EDT 06/22/2025 5:47 AM EDT us Govind Olivo MD LAB BLOOD ORDERABLES Final Result [facility] [address] [place] [address], * (ABNORMAL) CBC and Differential (06/22/2025 12:37 AM EDT) WBC 6.62 4.00 - 10.00 K/uL 06/22/2025 1:15 AM EDT [facility] RBC 3.67(L) 4.60 - 6.10 M/uL 06/22/2025 1:15 AM EDT [facility] Hemoglobin 11.3(L) 13.7 - 17.5 g/dL 06/22/2025 1:15 AM EDT [facility] Hematocrit 34.7(L) 40.0 - 51.0 % 06/22/2025 1:15 AM EDT [facility] MCV 95 82 - 98 fL 06/22/2025 1:15 AM EDT [facility] MCH 30.8 26.0 - 32.0 pg 06/22/2025 1:15 AM EDT [facility] MCHC 32.6 32.0 - 37.0 g/dL 06/22/2025 1:15 AM EDT [facility] RDW 15.5 10.5 - 15.5 % 06/22/2025 1:15 AM EDT [facility] RDW-SD 53.1(H) 35.1 - 46.3 fL 06/22/2025 1:15 AM [facility] Platelet Count 185 150 - 400 K/uL 06/22/2025 1:15 AM [facility] Nucleated RBC 0 <=0 #/100 WBC 06/22/2025 1:15 AM [facility] Neutrophil 67.5 34.0 - 71.0 % 06/22/2025 1:15 AM [facility] Lymphocyte 20.1 19.0 - 53.0 % 06/22/2025 1:15 AM [facility] Monocyte 10.6 5.0 - 13.0 % 06/22/2025 1:15 AM [facility] Eosinophil 0.0(L) 1.0 - 7.0 % 06/22/2025 1:15 AM [facility] Basophil 0.3 0.0 - 1.0 % 06/22/2025 1:15 AM [facility] Immature Granulocyte (Villard, Myelo, Promyelocyte) 1.5(H) 0.0 - 0.6 % 06/22/2025 1:15 AM [facility] Absolute Neutrophil Count 4.47 1.60 - 6.10 K/uL 06/22/2025 1:15 AM [facility] Absolute Lymphocyte Count 1.33 1.20 - 3.70 K/uL 06/22/2025 1:15 AM [facility] Absolute Monocyte Count 0.70 0.20 - 0.80 K/uL 06/22/2025 1:15 AM [facility] Absolute Eosinophil Count 0.00(L) 0.04 - 0.54 K/uL 06/22/2025 1:15 AM [facility] Absolute Basophil Count 0.02 0.01 - 0.08 K/uL 06/22/2025 1:15 AM [facility] Absolute Immature Granulocyte (Villard, Myelo, Promyelocyte) 0.10(H) 0.00 - 0.09 K/uL 06/22/2025 1:15 AM [facility] Blood PERIPHERAL BLOOD SPECIMEN / Unknown Venipuncture / Unknown 06/22/2025 12:37 AM EDT 06/22/2025 1:04 AM EDT Govind Olivo MD LAB BLOOD ORDERABLES Final Result Performing Organization Address City/[facility]/ZIP Co de Phone Number [facility] [address] [place] [address], [place] * ECG 12 lead (06/18/2025 11:54 AM EDT) Ventricular Heart Rate 101 BPM EKG BUR MUSE Atrial Heart Rate 101 BPM EKG BUR MUSE LA Interval 142 ms EKG BUR MUSE QRSD Interval 98 ms EKG BUR MUSE QT Interval 376 ms EKG BUR MUSE QTC Interval 487 ms EKG BUR MUSE P Mathews 43 degrees EKG B[facility]USE R Mathews -26 degrees EKG [facility] T Wave Mathews 56 degrees EKG [facility] 06/18/2025 11:5 3 AM EDT 06/18/2025 9:30 PM EDT Narrative EKG [facility] - 06/18/2025 9:30 PM EDT Sinus tachycardia Moderate voltage criteria for LVH, may be normal variant Borderline ECG When compared with ECG of 15-Jun-2025 12:55, No significant change was found Procedure Note Eric Valladares MD - 06/18/2025 Sinus tachycardia Moderate voltage criteria for LVH, may be normal variant Borderline ECG When compared with ECG of 15-Jun-2025 12:55, No significant change was found us Govind Olivo MD ECG ORDERABLES Final Resul t EKG [facility] [address] [place] [address] * XR Abdomen 1 VW (06/16/2025 1:33 PM EDT) Anatomical Region Laterality Modality Abdomen Digital Radiogra phy 06/16/2025 4:29 PM EDT Impressions 06/16/2025 4:33 PM EDT 1. No definite radiographic evidence of bowel obstruction. 2. Moderate stool impaction in the ascending colon. BY ELECTRONICALLY SIGNING THIS REPORT, I THE ATTENDING PHYSICIAN ATTEST THAT I HAVE REVIEWED THE IMAGES FOR THE ABOVE PROCEDURE(S) AND AGREE WITH THE FINDINGS DOCUMENTED. Jose Ramirez MD, electronically signed on Jun 16 2025 04:33PM Narrative 06/16/2025 4:33 PM EDT INDICATION: abd pain and bloating. TECHNIQUE: Supine abdominal radiographs were obtained. COMPARISON: Abdominal x-ray from 29 May 2025. FINDINGS: Prominent loops of air-filled small bowel with borderline dilated loops of transverse colon measuring up to 7.5 cm. There is moderate stool impaction in the ascending colon. Supine assessment limits detection for free air; there is no gross pneumoperitoneum. Osseous structures are unremarkable. Surgical clips in the left upper quadrant. Patient is status post lower lumbar spine fusion. External G-tube projecting over stomach. Procedure Note Sanket Ramirez MD - 06/16/2025 INDICATION: abd pain and bloating. TECHNIQUE: Supine abdominal radiographs were obtained. COMPARISON: Abdominal x-ray from 29 May 2025. FINDINGS: Prominent loops of air-filled small bowel with borderline dilated loops oftransverse colon measuring up to 7.5 cm. There is moderate stool impaction in the ascending colon. Supine assessment limits detection for free air; there is no grosspneumoperitoneum. Osseous structures are unremarkable. Surgical clips in the left upper quadrant. Patient is status post lower lumbar spine fusion. External G-tube projecting over stomach. IMPRESSION: 1. No definite radiographic evidence of bowel obstruction. 2. Moderate stool impaction in the ascending colon. BY ELECTRONICALLY SIGNING THIS REPORT, I THE ATTENDING PHYSICIAN ATTESTTHAT I HAVE REVIEWED THE IMAGES FOR THE ABOVE PROCEDURE(S) AND AGREE WITHTHE FINDINGS DOCUMENTED. Jose Ramirez MD, electronically signed on Jun 16 2025 04:33PM Govind Olivo MD [facility] Final Result * (ABNORMAL) Valproic Acid Level (06/15/2025 9:42 PM EDT) Valproic Acid Level, Blood 49(L) 50 - 100 ug/mL 06/15/2025 10:29 PM EDT [facility] Blood PERIPHERAL BLOOD SPECIMEN / Unknown Venipuncture / Unknown 06/15/2025 9:42 PM EDT 06/15/2025 9:45 PM EDT Govind Olivo MD LAB BLOOD ORDERABLES Final Result Performing Organization Address City/[facility]/ZIP Co de Phone Number [facility] [address] [place] [address], [place] * Clozapine Level, Blood (06/15/2025 9:41 PM EDT) Norclozapine 88 25 - 400 mcg/L 06/19/2025 3:00 PM EDT [facility] Clozapine 224 mcg/L 06/19/2025 3:00 PM EDT [facility] Comment: The therapeutic response begins to appear at 100 mcg/L. Refractory schizophrenia appears to require a therapeutic concentration of at least 350 mcg/L (trough, at steady state). Toxic range: Greater than 900 mcg/L This test was developed and its analytical performance characteristics have been determined by [employer] [place], [place]. It has not been cleared or approved by the U.S. Food and Drug Administration. This assay has been validated pursuant to the CLIA regulations and is used for clinical purposes. Blood PERIPHERAL BLOOD SPECIMEN / Unknown Venipuncture / Unknown 06/15/2025 9:41 PM EDT 06/15/2025 9:45 PM EDT Narrative [facility] [place] - 06/19/2025 3:00 PM EDT Performing Organization Information: Site ID: [id number] Name: [facility] Address: [address] [place] [address] Director: LEONEL RUIZ MD,PHD us Govind Olivo MD LAB BLOOD ORDERABLES Final Result Performing Organization Address City/[facility]/ZIP Co de Phone Number [facility] [address] [place] [address], [place] [phone] * Valproic Acid Level, Free (06/15/2025 9:41 PM EDT) [facility] Valproic Acid, Free 13.7 4.8 - 17.3 mg/L 06/19/2025 3:00 PM EDT [facility] Comment: Nonlinear drug binding properties result in the fraction of free valproic acid increasing as total drug increases. The free valproic acid fraction may range from 5% to 25% for the total drug range of 30-160 mg/L. Blood PERIPHERAL BLOOD SPECIMEN / Unknown Venipuncture / Unknown 06/15/2025 9:41 PM EDT 06/15/2025 9:45 PM EDT Narrative [facility] - 06/19/2025 3:00 PM EDT Performing Organization Information: Site ID: [id number] Name: [place] Address: [address] [place] [id number] Director: FIDEL CRAWFORD MD Govind Olivo MD LAB BLOOD ORDERABLES Final Result [address] [address], * ECG 12 lead (06/15/2025 12:56 PM EDT) [facility] Ventricular Heart Rate 97 BPM EKG BUR MUSE Atrial Heart Rate 97 BPM EKG BUR MUSE LA Interval 142 ms EKG BUR MUSE QRSD Interval 104 ms EKG BUR MUSE QT Interval 382 ms EKG BUR MUSE QTC Interval 485 ms EKG BUR MUSE P Mathews 76 degrees EKG BUR MUSE R Mathews -33 degrees EKG BUR MUSE T Wave Mathews 69 degrees EKG BUR MUSE 06/15/2025 12:5 5 PM EDT 06/15/2025 10:36 PM EDT Narrative EKG BUR MUSE - 06/15/2025 10:36 PM EDT Normal sinus rhythm Left axis deviation Prolonged QT interval Abnormal ECG When compared with ECG of 11-Jun-2025 11:22, No significant change was found Procedure Note Eric Valladares MD - 06/15/2025 Normal sinus rhythm Left axis deviation Prolonged QT interval Abnormal ECG When compared with ECG of 11-Jun-2025 11:22, No significant change was found Govind Olivo MD ECG ORDERABLES Final Resul t EKG [address] [address] * (ABNORMAL) CBC (06/15/2025 6:23 AM EDT) WBC 8.69 4.00 - 10.00 K/uL 06/15/2025 6:52 AM EDT [facility] RBC 3.83(L) 4.60 - 6.10 M/uL 06/15/2025 6:52 AM EDT [facility] Hemoglobin 11.6(L) 13.7 - 17.5 g/dL 06/15/2025 6:52 AM EDT [facility] Hematocrit 36.2(L) 40.0 - 51.0 % 06/15/2025 6:52 AM EDT [facility] MCV 95 82 - 98 fL 06/15/2025 6:52 AM EDT [facility] MCH 30.3 26.0 - 32.0 pg 06/15/2025 6:52 AM EDT [facility] MCHC 32.0 32.0 - 37.0 g/dL 06/15/2025 6:52 AM EDT [facility] RDW 14.5 10.5 - 15.5 % 06/15/2025 6:52 AM EDT [facility] RDW-SD 49.3(H) 35.1 - 46.3 fL 06/15/2025 6:52 AM EDT [facility] Platelet Count 256 150 - 400 K/uL 06/15/2025 6:52 AM EDT [facility] Nucleated RBC 0 <=0 #/100 WBC 06/15/2025 6:52 AM EDT [facility] Blood PERIPHERAL BLOOD SPECIMEN / Unknown Venipuncture / Unknown 06/15/2025 6:23 AM EDT 06/15/2025 6:36 AM EDT Urban Mondragon MD LAB BLOOD ORDERABLES Final Resul t [facility] [address] [place] [address], [place] * Phosphorus (06/15/2025 6:22 AM EDT) Phosphorus 3.4 2.7 - 4.5 mg/dL 06/15/2025 7:14 AM EDT [facility] Blood PERIPHERAL BLOOD SPECIMEN / Unknown Venipuncture / Unknown 06/15/2025 6:22 AM EDT 06/15/2025 6:36 AM EDT Urban Mondragon MD LAB BLOOD ORDERABLES Final Resul t Performing Organization Address City/[facility]/ZIP Co de Phone Number [facility] [address] [place] [address], [place] * Magnesium (06/15/2025 6:22 AM EDT) Magnesium, Blood 2.1 1.6 - 2.6 mg/dL 06/15/2025 7:14 AM EDT [facility] Blood PERIPHERAL BLOOD SPECIMEN / Unknown Venipuncture / Unknown 06/15/2025 6:22 AM EDT 06/15/2025 6:36 AM EDT Urban Mondragon MD LAB BLOOD ORDERABLES Final Resul t [facility] [address] [place] [address], [place] * (ABNORMAL) Basic Metabolic Panel (06/15/2025 6:22 AM EDT) Sodium 142 135 - 147 mmol/L 06/15/2025 7:14 AM EDT [facility] Potassium 4.2 3.5 - 5.4 mmol/L 06/15/2025 7:14 AM EDT [facility] Chloride 104 96 - 108 mmol/L 06/15/2025 7:14 AM EDT [facility] Total CO2/Bicarbonat e 29 22 - 32 mmol/L 06/15/2025 7:14 AM EDT [facility] Anion Gap 9(L) 10 - 18 mmol/L 06/15/2025 7:14 AM EDT [facility] BUN 28(H) 6 - 20 mg/dL 06/15/2025 7:14 AM EDT [facility] Creatinine, Blood 0.90 0.50 - 1.20 mg/dL 06/15/2025 7:14 AM EDT [facility] Glucose, Blood 109(H) 70 - 100 mg/dL 06/15/2025 7:14 AM EDT [facility] Calcium 8.9 8.4 - 10.3 mg/dL 06/15/2025 7:14 AM EDT [facility] Blood PERIPHERAL BLOOD SPECIMEN / Unknown Venipuncture / Unknown 06/15/2025 6:22 AM EDT 06/15/2025 6:36 AM EDT us Urban Mondragon MD LAB BLOOD ORDERABLES Final Resul t [facility] [address] [place] [address], * (ABNORMAL) Hepatic Function Panel (06/15/2025 6:22 AM EDT) Total Protein 5.9(L) 6.4 - 8.3 g/dL 06/15/2025 7:32 AM EDT [facility] Albumin, Blood 2.9(L) 3.5 - 5.2 g/dL 06/15/2025 7:32 AM EDT [facility] Globulin Result 3.0 2.0 - 4.0 g/dL 06/15/2025 7:32 AM EDT [facility] Total Bilirubin 0.2 0.0 - 1.5 mg/dL 06/15/2025 7:32 AM EDT [facility] Direct Bilirubin <0.1 0.0 - 0.3 mg/dL 06/15/2025 7:32 AM EDT [facility] Alkaline Phosphatase 117 40 - 130 U/L 06/15/2025 7:32 AM EDT [facility] AST (SGOT) 22 0 - 40 U/L 06/15/2025 7:32 AM EDT [facility] ALT (SGPT) 14 0 - 40 U/L 06/15/2025 7:32 AM EDT [facility] Blood PERIPHERAL BLOOD SPECIMEN / Unknown Venipuncture / Unknown 06/15/2025 6:22 AM EDT 06/15/2025 6:36 AM EDT us Urban Mondragon MD LAB BLOOD ORDERABLES Final Resul t Performing Organization Address City/[facility]/ZIP Co de Phone Number [facility] [address] [place] [address], [place] * Phosphorus (06/12/2025 6:57 AM EDT) Phosphorus 3.0 2.7 - 4.5 mg/dL 06/12/2025 8:03 AM EDT [facility] Blood PERIPHERAL BLOOD SPECIMEN / Unknown Venipuncture / Unknown 06/12/2025 6:57 AM EDT 06/12/2025 7:22 AM EDT us Urban Mondragon MD LAB BLOOD ORDERABLES Final Resul t [facility] [address] [place] [address], [place] * Magnesium (06/12/2025 6:57 AM EDT) Magnesium, Blood 2.2 1.6 - 2.6 mg/dL 06/12/2025 8:03 AM EDT [facility] Blood PERIPHERAL BLOOD SPECIMEN / Unknown Venipuncture / Unknown 06/12/2025 6:57 AM EDT 06/12/2025 7:22 AM EDT us Urban Mondragon MD LAB BLOOD ORDERABLES Final Resul t [facility] [address] [place] [address], [place] * (ABNORMAL) Basic Metabolic Panel (06/12/2025 6:57 AM EDT) Sodium 142 135 - 147 mmol/L 06/12/2025 8:03 AM EDT [facility] Potassium 4.1 3.5 - 5.4 mmol/L 06/12/2025 8:03 AM EDT [facility] Chloride 104 96 - 108 mmol/L 06/12/2025 8:03 AM EDT [facility] Total CO2/Bicarbonat e 29 22 - 32 mmol/L 06/12/2025 8:03 AM EDT [facility] Anion Gap 9(L) 10 - 18 mmol/L 06/12/2025 8:03 AM EDT [facility] BUN 28(H) 6 - 20 mg/dL 06/12/2025 8:03 AM EDT [facility] Creatinine, Blood 0.90 0.50 - 1.20 mg/dL 06/12/2025 8:03 AM EDT [facility] Glucose, Blood 128(H) 70 - 100 mg/dL 06/12/2025 8:03 AM EDT [facility] Calcium 9.0 8.4 - 10.3 mg/dL 06/12/2025 8:03 AM EDT [facility] Blood PERIPHERAL BLOOD SPECIMEN / Unknown Venipuncture / Unknown 06/12/2025 6:57 AM EDT 06/12/2025 7:22 AM EDT us Urban Mondragon MD LAB BLOOD ORDERABLES Final Resul t [facility] [address] [place] [address], [place] * (ABNORMAL) Hepatic Function Panel (06/12/2025 6:57 AM EDT) Total Protein 6.0(L) 6.4 - 8.3 g/dL 06/12/2025 8:03 AM EDT [facility] Albumin, Blood 3.0(L) 3.5 - 5.2 g/dL 06/12/2025 8:03 AM EDT [facility] Globulin Result 3.0 2.0 - 4.0 g/dL 06/12/2025 8:03 AM EDT [facility] Total Bilirubin 0.2 0.0 - 1.5 mg/dL 06/12/2025 8:03 AM EDT [facility] Direct Bilirubin 0.1 0.0 - 0.3 mg/dL 06/12/2025 8:03 AM EDT [facility] Alkaline Phosphatase 123 40 - 130 U/L 06/12/2025 8:03 AM EDT [facility] AST (SGOT) 18 0 - 40 U/L 06/12/2025 8:03 AM EDT [facility] ALT (SGPT) 13 0 - 40 U/L 06/12/2025 8:03 AM EDT [facility] Blood PERIPHERAL BLOOD SPECIMEN / Unknown Venipuncture / Unknown 06/12/2025 6:57 AM EDT 06/12/2025 7:22 AM EDT us Urban Mondragon MD LAB BLOOD ORDERABLES Final Resul t [facility] [address] [place] [address], * (ABNORMAL) CBC (06/12/2025 6:57 AM EDT) WBC 11.56(H) 4.00 - 10.00 K/uL 06/12/2025 7:48 AM EDT [facility] RBC 3.91(L) 4.60 - 6.10 M/uL 06/12/2025 7:48 AM EDT [facility] Hemoglobin 12.0(L) 13.7 - 17.5 g/dL 06/12/2025 7:48 AM EDT [facility] Hematocrit 37.1(L) 40.0 - 51.0 % 06/12/2025 7:48 AM EDT [facility] MCV 95 82 - 98 fL 06/12/2025 7:48 AM EDT [facility] MCH 30.7 26.0 - 32.0 pg 06/12/2025 7:48 AM EDT [facility] MCHC 32.3 32.0 - 37.0 g/dL 06/12/2025 7:48 AM EDT [facility] RDW 13.9 10.5 - 15.5 % 06/12/2025 7:48 AM EDT [facility] RDW-SD 46.5(H) 35.1 - 46.3 fL 06/12/2025 7:48 AM EDT [facility] Platelet Count 312 150 - 400 K/uL 06/12/2025 7:48 AM EDT [facility] Nucleated RBC 0 <=0 #/100 WBC 06/12/2025 7:48 AM EDT [facility] Blood PERIPHERAL BLOOD SPECIMEN / Unknown Venipuncture / Unknown 06/12/2025 6:57 AM EDT 06/12/2025 7:23 AM EDT us Urban Mondragon MD LAB BLOOD ORDERABLES Final Resul t [facility] [address] [place] [address], * (ABNORMAL) POCT Glucose (06/11/2025 1:54 PM EDT) Glucose, POC 118(H) 70 - 100 mg/dL 06/11/2025 2:05 PM EDT [facility] Comment: @Serial Ynzuzj=[id number] @Technical Sales Specialist DR=[id number] Blood 06/11/2025 1:54 PM EDT 06/11/2025 2:05 PM EDT us Feliciano Choi MD POCT ORDERABLES - DEVICE Patricia l Result [facility] [address] [facility] [place] [address], [place] * ECG 12 lead (06/11/2025 11:23 AM EDT) Ventricular Heart Rate 87 BPM EKG BUR MUSE Atrial Heart Rate 87 BPM EKG BUR MUSE LA Interval 136 ms EKG BUR MUSE QRSD Interval 98 ms EKG BUR MUSE QT Interval 402 ms EKG BUR MUSE QTC Interval 483 ms EKG BUR MUSE P Mathews 68 degrees EKG BUR MUSE R Mathews -31 degrees EKG BUR MUSE T Wave Mathews 39 degrees EKG BUR MUSE 06/11/2025 11:2 2 AM EDT 06/11/2025 9:34 PM EDT Narrative EKG BUR MUSE - 06/11/2025 9:34 PM EDT Normal sinus rhythm Left axis deviation Minimal voltage criteria for LVH, may be normal variant Prolonged QT interval When compared with ECG of 04-Jun-2025 05:14, No significant change was found Procedure Note Stephanie Michelle MD - 06/11/2025 Normal sinus rhythm Left axis deviation Minimal voltage criteria for LVH, may be normal variant Prolonged QT interval When compared with ECG of 04-Jun-2025 05:14, No significant change was found Feliciano Choi MD ECG ORDERABLES Final Result EKG BUR MUSE [address] [place] [id number] * [place] Modified Barium Swallow Incl Speech (06/11/2025 10:30 AM EDT) Anatomical Region Laterality Modality Radio Fluoroscop y 06/11/2025 3:10 PM EDT Impressions 06/11/2025 5:13 PM EDT Penetration with mildly thick liquids and silent aspiration with thin liquids.. Please note that a detailed description of dynamic swallowing as well as a summative assessment and recommendations are reported separately in a standalone note by the Speech-Language Pathologist ([place], Notes, Speech Pathology). BY ELECTRONICALLY SIGNING THIS REPORT, I THE ATTENDING PHYSICIAN ATTEST THAT I HAVE REVIEWED THE IMAGES FOR THE ABOVE PROCEDURE(S) AND AGREE WITH THE FINDINGS DOCUMENTED. Jose Quintana MD, electronically signed on Jun 11 2025 05:13PM Narrative 06/11/2025 5:13 PM EDT EXAMINATION: [place] MODIFIED BARIUM SWALLOW INCL SPEECH INDICATION: 70 with hx dysphagia/ aspiration/ pneumonia, PEG tube, eval for clearance of liquids/ice cream/ applesauce. TECHNIQUE: Oropharyngeal swallowing videofluoroscopy was performed in conjunction with the Speech-Language Pathologist from the [facility]. Multiple consistencies of barium were administered. DOSE: Fluoro time: 3 min 3 seconds. Skin dose 27 mGy DAP 43.1 uGy m2 COMPARISON: None available. FINDINGS: There was penetration with mildly thick liquids and silent aspiration with thin liquids. Pharyngeal residue is noted. Procedure Note Turner Quintana MD - 06/11/2025 EXAMINATION: FL MODIFIED BARIUM SWALLOW INCL SPEECH INDICATION: 70 with hx dysphagia/ aspiration/ pneumonia, PEG tube, eval for clearanceof liquids/ice cream/ applesauce. TECHNIQUE: Oropharyngeal swallowing videofluoroscopy was performed in conjunctionwith the Speech-Language Pathologist from the [facility]. Multiple consistencies of barium were administered. DOSE: Fluoro time: 3 min 3 seconds. Skin dose 27 mGy DAP 43.1 uGy m2 COMPARISON: None available. FINDINGS: There was penetration with mildly thick liquids and silent aspiration withthin liquids. Pharyngeal residue is noted. IMPRESSION: Penetration with mildly thick liquids and silent aspiration with thinliquids.. Please note that a detailed description of dynamic swallowing as well as asummative assessment and recommendations are reported separately in astandalone note by the Speech-Language Pathologist (Epic, Notes, SpeechPathology). BY ELECTRONICALLY SIGNING THIS REPORT, I THE ATTENDING PHYSICIAN ATTESTTHAT I HAVE REVIEWED THE IMAGES FOR THE ABOVE PROCEDURE(S) AND AGREE WITHTHE FINDINGS DOCUMENTED. Jose Quintana MD, electronically signed on Jun 11 2025 05:13PM Feliciano Choi MD IMG FLUOROSCOPY ORDERABLES Fi nal Result * (ABNORMAL) Differential with WBC (06/10/2025 7:20 AM EDT) WBC 19.00(H) 4.00 - 10.00 K/uL 06/10/2025 9:52 AM EDT [facility] Neutrophil 85.5(H) 34.0 - 71.0 % 06/10/2025 9:52 AM [facility] Lymphocyte 7.7(L) 19.0 - 53.0 % 06/10/2025 9:52 AM [facility] Monocyte 5.6 5.0 - 13.0 % 06/10/2025 9:52 AM [facility] Eosinophil 0.0(L) 1.0 - 7.0 % 06/10/2025 9:52 AM [facility] Basophil 0.4 0.0 - 1.0 % 06/10/2025 9:52 AM [facility] Nucleated RBC 0 <=0 #/100 WBC 06/10/2025 9:52 AM [facility] Absolute Neutrophil Count 16.18(H) 1.60 - 6.10 K/uL 06/10/2025 9:52 AM [facility] Absolute Lymphocyte Count 1.45 1.20 - 3.70 K/uL 06/10/2025 9:52 AM [facility] Absolute Monocyte Count 1.06(H) 0.20 - 0.80 K/uL 06/10/2025 9:52 AM [facility] Absolute Eosinophil Count 0.00(L) 0.04 - 0.54 K/uL 06/10/2025 9:52 AM [facility] Absolute Basophil Count 0.07 0.01 - 0.08 K/uL 06/10/2025 9:52 AM [facility] Immature Granulocyte (Villard, Myelo, Promyelocyte) 0.8(H) 0.0 - 0.6 % 06/10/2025 9:52 AM [facility] Absolute Immature Granulocyte (Villard, Myelo, Promyelocyte) 0.16(H) 0.00 - 0.09 K/uL 06/10/2025 9:52 AM [facility] Blood PERIPHERAL BLOOD SPECIMEN / Unknown Venipuncture / Unknown 06/10/2025 7:20 AM EDT 06/10/2025 7:30 AM EDT us Feliciano Choi MD LAB BLOOD ORDERABLES Final Re sult [facility] [address] [place] [address], [place] * Phosphorus (06/10/2025 7:20 AM EDT) Phosphorus 3.0 2.7 - 4.5 mg/dL 06/10/2025 8:03 AM EDT [facility] Blood PERIPHERAL BLOOD SPECIMEN / Unknown Venipuncture / Unknown 06/10/2025 7:20 AM EDT 06/10/2025 7:30 AM EDT us Urban Mondragon MD LAB BLOOD ORDERABLES Final Resul t Performing Organization Address City/[facility]/ZIP Co de Phone Number [facility] [address] [place] [address], [place] * Magnesium (06/10/2025 7:20 AM EDT) Magnesium, Blood 2.3 1.6 - 2.6 mg/dL 06/10/2025 8:03 AM EDT [facility] Blood PERIPHERAL BLOOD SPECIMEN / Unknown Venipuncture / Unknown 06/10/2025 7:20 AM EDT 06/10/2025 7:30 AM EDT Urban Mondragon MD LAB BLOOD ORDERABLES Final Resul t Performing Organization Address City/[facility]/ZIP Co de Phone Number [facility] [address] [place] [address], [place] * (ABNORMAL) Basic Metabolic Panel (06/10/2025 7:20 AM EDT) Sodium 142 135 - 147 mmol/L 06/10/2025 8:03 AM EDT [facility] Potassium 4.2 3.5 - 5.4 mmol/L 06/10/2025 8:03 AM EDT [facility] Chloride 105 96 - 108 mmol/L 06/10/2025 8:03 AM EDT [facility] Total CO2/Bicarbonat e 28 22 - 32 mmol/L 06/10/2025 8:03 AM EDT [facility] Anion Gap 9(L) 10 - 18 mmol/L 06/10/2025 8:03 AM EDT [facility] BUN 35(H) 6 - 20 mg/dL 06/10/2025 8:03 AM EDT [facility] Creatinine, Blood 0.90 0.50 - 1.20 mg/dL 06/10/2025 8:03 AM EDT [facility] Glucose, Blood 161(H) 70 - 100 mg/dL 06/10/2025 8:03 AM EDT [facility] Calcium 8.8 8.4 - 10.3 mg/dL 06/10/2025 8:03 AM EDT [facility] Blood PERIPHERAL BLOOD SPECIMEN / Unknown Venipuncture / Unknown 06/10/2025 7:20 AM EDT 06/10/2025 7:30 AM EDT us Urban Mondragon MD LAB BLOOD ORDERABLES Final Resul t [facility] [address] [place] [address], [place] * (ABNORMAL) Hepatic Function Panel (06/10/2025 7:20 AM EDT) Total Protein 6.3(L) 6.4 - 8.3 g/dL 06/10/2025 8:03 AM EDT [facility] Albumin, Blood 3.0(L) 3.5 - 5.2 g/dL 06/10/2025 8:03 AM EDT [facility] Globulin Result 3.3 2.0 - 4.0 g/dL 06/10/2025 8:03 AM EDT [facility] Total Bilirubin 0.2 0.0 - 1.5 mg/dL 06/10/2025 8:03 AM EDT [facility] Direct Bilirubin 0.1 0.0 - 0.3 mg/dL 06/10/2025 8:03 AM EDT [facility] Alkaline Phosphatase 125 40 - 130 U/L 06/10/2025 8:03 AM EDT [facility] AST (SGOT) 19 0 - 40 U/L 06/10/2025 8:03 AM EDT [facility] ALT (SGPT) 13 0 - 40 U/L 06/10/2025 8:03 AM EDT [facility] Blood PERIPHERAL BLOOD SPECIMEN / Unknown Venipuncture / Unknown 06/10/2025 7:20 AM EDT 06/10/2025 7:30 AM EDT us Urban Mondragon MD LAB BLOOD ORDERABLES Final Resul t [facility] [address] [place] [address], [place] * (ABNORMAL) CBC (06/10/2025 7:20 AM EDT) WBC 19.00(H) 4.00 - 10.00 K/uL 06/10/2025 7:55 AM EDT [facility] RBC 4.13(L) 4.60 - 6.10 M/uL 06/10/2025 7:55 AM EDT [facility] Hemoglobin 12.8(L) 13.7 - 17.5 g/dL 06/10/2025 7:55 AM EDT [facility] Hematocrit 38.9(L) 40.0 - 51.0 % 06/10/2025 7:55 AM EDT [facility] MCV 94 82 - 98 fL 06/10/2025 7:55 AM EDT [facility] MCH 31.0 26.0 - 32.0 pg 06/10/2025 7:55 AM EDT [facility] MCHC 32.9 32.0 - 37.0 g/dL 06/10/2025 7:55 AM EDT [facility] RDW 13.7 10.5 - 15.5 % 06/10/2025 7:55 AM EDT [facility] RDW-SD 45.8 35.1 - 46.3 fL 06/10/2025 7:55 AM EDT [facility] Platelet Count 307 150 - 400 K/uL 06/10/2025 7:55 AM EDT [facility] Nucleated RBC 0 <=0 #/100 WBC 06/10/2025 7:55 AM EDT [facility] Blood PERIPHERAL BLOOD SPECIMEN / Unknown Venipuncture / Unknown 06/10/2025 7:20 AM EDT 06/10/2025 7:30 AM EDT Urban Mondragon MD LAB BLOOD ORDERABLES Final Resul t [facility] [address] [place] [address], [place] * (ABNORMAL) POCT Glucose (06/08/2025 12:13 PM EDT) Glucose, POC 132(H) 70 - 100 mg/dL 06/08/2025 1:24 PM EDT [facility] Comment: @Serial [id number] @Technical Sales Specialist TM=[id number] Blood 06/08/2025 12:1 3 PM EDT 06/08/2025 1:24 PM EDT Feliciano Choi MD POCT ORDERABLES - DEVICE Patricia l Result Performing Organization Address City/[facility]/ZIP Co de Phone Number [facility] [address] [place] [address], [place] * Phosphorus (06/08/2025 7:52 AM EDT) Phosphorus 2.9 2.7 - 4.5 mg/dL 06/08/2025 8:57 AM EDT [facility] Blood PERIPHERAL BLOOD SPECIMEN / Unknown Venipuncture / Unknown 06/08/2025 7:52 AM EDT 06/08/2025 7:58 AM EDT us Urban Mondragon MD LAB BLOOD ORDERABLES Final Resul t [facility] [address] [place] [address], [place] * Magnesium (06/08/2025 7:52 AM EDT) Magnesium, Blood 2.2 1.6 - 2.6 mg/dL 06/08/2025 8:57 AM EDT [facility] Blood PERIPHERAL BLOOD SPECIMEN / Unknown Venipuncture / Unknown 06/08/2025 7:52 AM EDT 06/08/2025 7:58 AM EDT us Urban Mondragon MD LAB BLOOD ORDERABLES Final Resul t [facility] [address] [place] [address], [place] * (ABNORMAL) Basic Metabolic Panel (06/08/2025 7:52 AM EDT) Sodium 143 135 - 147 mmol/L 06/08/2025 8:57 AM EDT [facility] Potassium 4.3 3.5 - 5.4 mmol/L 06/08/2025 8:57 AM EDT [facility] Chloride 106 96 - 108 mmol/L 06/08/2025 8:57 AM EDT [facility] Total CO2/Bicarbonat e 28 22 - 32 mmol/L 06/08/2025 8:57 AM EDT [facility] Anion Gap 9(L) 10 - 18 mmol/L 06/08/2025 8:57 AM EDT [facility] BUN 31(H) 6 - 20 mg/dL 06/08/2025 8:57 AM EDT [facility] Creatinine, Blood 0.80 0.50 - 1.20 mg/dL 06/08/2025 8:57 AM EDT [facility] Glucose, Blood 130(H) 70 - 100 mg/dL 06/08/2025 8:57 AM EDT [facility] Calcium 8.7 8.4 - 10.3 mg/dL 06/08/2025 8:57 AM EDT [facility] Estimated GFR(CKD-EPI) 96 mL/min/BSA 06/08/2025 8:57 AM EDT [facility] Blood PERIPHERAL BLOOD SPECIMEN / Unknown Venipuncture / Unknown 06/08/2025 7:52 AM EDT 06/08/2025 7:58 AM EDT us Urban Mondragon MD LAB BLOOD ORDERABLES Final Resul t [facility] [address] [place] [address], [place] * (ABNORMAL) Hepatic Function Panel (06/08/2025 7:52 AM EDT) Total Protein 6.0(L) 6.4 - 8.3 g/dL 06/08/2025 8:57 AM EDT [facility] Albumin, Blood 2.8(L) 3.5 - 5.2 g/dL 06/08/2025 8:57 AM EDT [facility] Globulin Result 3.2 2.0 - 4.0 g/dL 06/08/2025 8:57 AM EDT [facility] Total Bilirubin 0.2 0.0 - 1.5 mg/dL 06/08/2025 8:57 AM EDT [facility] Direct Bilirubin 0.1 0.0 - 0.3 mg/dL 06/08/2025 8:57 AM EDT [facility] Alkaline Phosphatase 124 40 - 130 U/L 06/08/2025 8:57 AM EDT [facility] AST (SGOT) 20 0 - 40 U/L 06/08/2025 8:57 AM EDT [facility] ALT (SGPT) 14 0 - 40 U/L 06/08/2025 8:57 AM EDT [facility] Blood PERIPHERAL BLOOD SPECIMEN / Unknown Venipuncture / Unknown 06/08/2025 7:52 AM EDT 06/08/2025 7:58 AM EDT us Urban Mondragon MD LAB BLOOD ORDERABLES Final Resul t Performing Organization Address City/[facility]/ZIP Co de Phone Number [facility] [address] [place] [address], [place] * (ABNORMAL) CBC (06/08/2025 7:52 AM EDT) WBC 14.29(H) 4.00 - 10.00 K/uL 06/08/2025 8:04 AM EDT [facility] RBC 4.24(L) 4.60 - 6.10 M/uL 06/08/2025 8:04 AM EDT [facility] Hemoglobin 12.8(L) 13.7 - 17.5 g/dL 06/08/2025 8:04 AM EDT [facility] Hematocrit 40.2 40.0 - 51.0 % 06/08/2025 8:04 AM EDT [facility] MCV 95 82 - 98 fL 06/08/2025 8:04 AM EDT [facility] MCH 30.2 26.0 - 32.0 pg 06/08/2025 8:04 AM EDT [facility] MCHC 31.8(L) 32.0 - 37.0 g/dL 06/08/2025 8:04 AM EDT [facility] RDW 13.2 10.5 - 15.5 % 06/08/2025 8:04 AM EDT [facility] RDW-SD 45.3 35.1 - 46.3 fL 06/08/2025 8:04 AM EDT [facility] Platelet Count 295 150 - 400 K/uL 06/08/2025 8:04 AM EDT [facility] Nucleated RBC 0 <=0 #/100 WBC 06/08/2025 8:04 AM EDT [facility] Blood PERIPHERAL BLOOD SPECIMEN / Unknown Venipuncture / Unknown 06/08/2025 7:52 AM EDT 06/08/2025 7:59 AM EDT us Urban Mondragon MD LAB BLOOD ORDERABLES Final Resul t [facility] [address] [place] [address], * (ABNORMAL) POCT Glucose (06/08/2025 6:00 AM EDT) Glucose, POC 137(H) 70 - 100 mg/dL 06/08/2025 6:02 AM EDT [facility] Comment: @Serial Znuzsf=[id number] @Technical Sales Specialist [id number] Blood 06/08/2025 6:00 AM EDT 06/08/2025 6:02 AM EDT us Mariano Maloney MD POCT ORDERABLES - DEVICE Final R esult Performing Organization Address [facility] de Phone Number [facility] [address] [place] [address], [place] * (ABNORMAL) POCT Glucose (06/07/2025 6:35 PM EDT) Glucose, POC 102(H) 70 - 100 mg/dL 06/07/2025 6:39 PM EDT [facility] Comment: @Serial Ieawmj=[id number] @Technical Sales Specialist ZA=[id number] Blood 06/07/2025 6:35 PM EDT 06/07/2025 6:39 PM EDT us Mariano Maloney MD POCT ORDERABLES - DEVICE Final R esult Performing Organization Address [facility] de Phone Number [facility] [address] [place] [address], [place] * (ABNORMAL) POCT Glucose (06/07/2025 11:57 AM EDT) Glucose, POC 111(H) 70 - 100 mg/dL 06/07/2025 11:58 AM EDT [facility] Comment: @Serial Vlzhvx=[id number] @Technical Sales Specialist [id number] Blood 06/07/2025 11:5 7 AM EDT 06/07/2025 11:58 AM EDT us Mariano Maloney MD POCT ORDERABLES - DEVICE Final R esult Performing Organization Address [facility] de Phone Number [facility] [address] [place] [address], [place] * (ABNORMAL) POCT Glucose (06/07/2025 5:59 AM EDT) Glucose, POC 129(H) 70 - 100 mg/dL 06/07/2025 6:01 AM EDT [facility] Comment: @Serial Woultz=[id number] @Technical Sales Specialist [id number] Blood 06/07/2025 5:59 AM EDT 06/07/2025 6:01 AM EDT us Mariano Maloney MD POCT ORDERABLES - DEVICE Final R esult Performing Organization Address City/[facility]/ZIP Co de Phone Number [address] [address], [place] * (ABNORMAL) POCT Glucose (06/06/2025 11:54 PM EDT) Glucose, POC 116(H) 70 - 100 mg/dL 06/06/2025 11:56 PM EDT [facility] Comment: @Serial Mlqncz=[id number] @Technical Sales Specialist DJ=[id number] Blood 06/06/2025 11:5 4 PM EDT 06/06/2025 11:56 PM EDT us Mariano Maloney MD POCT ORDERABLES - DEVICE Final R esult Performing Organization Address [facility]/ZIP Co de Phone Number [facility] [address] [place] [address], [place] * (ABNORMAL) POCT Glucose (06/06/2025 5:43 PM EDT) Glucose, POC 115(H) 70 - 100 mg/dL 06/06/2025 5:49 PM EDT [facility] Comment: @Serial Vcqivd=[id number] @Technical Sales Specialist GW=[id number] Blood 06/06/2025 5:43 PM EDT 06/06/2025 5:49 PM EDT us Mariano Maloney MD POCT ORDERABLES - DEVICE Final R esult [facility] [address] [place] [address], [place] * (ABNORMAL) POCT Glucose (06/06/2025 2:14 PM EDT) Glucose, POC 110(H) 70 - 100 mg/dL 06/06/2025 2:22 PM EDT [facility] Comment: @Serial Wefnwv=[id number] @Technical Sales Specialist VV=[id number] Blood 06/06/2025 2:14 PM EDT 06/06/2025 2:22 PM EDT Mariano Maloney MD POCT ORDERABLES - DEVICE Final R esult Performing Organization Address [facility] de Phone Number [facility] [address] [facility] [place] [address], [place] * (ABNORMAL) POCT Glucose (06/06/2025 6:41 AM EDT) Glucose, POC 133(H) 70 - 100 mg/dL 06/06/2025 6:43 AM EDT [facility] Comment: @Serial Tkjwtw=[id number] @Technical Sales Specialist MG=[id number] Blood 06/06/2025 6:41 AM EDT 06/06/2025 6:43 AM EDT us Urban Mondragon MD POCT ORDERABLES - DEVICE Final R esult Performing Organization Address [facility] de Phone Number [address] [place] [address], [place] * (ABNORMAL) POCT Glucose (06/05/2025 5:36 PM EDT) Glucose, POC 127(H) 70 - 100 mg/dL 06/05/2025 5:37 PM EDT [facility] Comment: @Serial Jnudhd=[id number] @Technical Sales Specialist HD=[id number] Blood 06/05/2025 5:36 PM EDT 06/05/2025 5:37 PM EDT us Urban Mondragon MD POCT ORDERABLES - DEVICE Final R esult Performing Organization Address [facility] Co de Phone Number [place] [id number], [place] * (ABNORMAL) POCT Glucose (06/05/2025 6:13 AM EDT) Glucose, POC 148(H) 70 - 100 mg/dL 06/05/2025 6:14 AM EDT [facility] Comment: @Serial Lmwtoe=[id number] @Technical Sales Specialist HK=[id number] Blood 06/05/2025 6:13 AM EDT 06/05/2025 6:14 AM EDT Urban Mondragon MD POCT ORDERABLES - DEVICE Final R esult [facility] [address] [facility] [place] [address], [place] * Phosphorus (06/05/2025 5:53 AM EDT) Phosphorus 3.3 2.7 - 4.5 mg/dL 06/05/2025 7:29 AM EDT [facility] Blood PERIPHERAL BLOOD SPECIMEN / Unknown Venipuncture / Unknown 06/05/2025 5:53 AM EDT 06/05/2025 6:37 AM EDT us Rabia Velasco MD LAB BLOOD ORDERABLES Final Resul t [facility] [address] [place] [address], [place] * Magnesium (06/05/2025 5:53 AM EDT) Magnesium, Blood 2.2 1.6 - 2.6 mg/dL 06/05/2025 7:29 AM EDT [facility] Blood PERIPHERAL BLOOD SPECIMEN / Unknown Venipuncture / Unknown 06/05/2025 5:53 AM EDT 06/05/2025 6:37 AM EDT us Rabia Velasco MD LAB BLOOD ORDERABLES Final Resul t [facility] [address] [place] [address], [place] * (ABNORMAL) Basic Metabolic Panel (06/05/2025 5:53 AM EDT) Pathologist [facility] Sodium 142 135 - 147 mmol/L 06/05/2025 7:29 AM EDT [facility] Potassium 4.0 3.5 - 5.4 mmol/L 06/05/2025 7:29 AM EDT [facility] Chloride 105 96 - 108 mmol/L 06/05/2025 7:29 AM EDT [facility] Total CO2/Bicarbonat e 29 22 - 32 mmol/L 06/05/2025 7:29 AM EDT [facility] Anion Gap 8(L) 10 - 18 mmol/L 06/05/2025 7:29 AM EDT [facility] BUN 34(H) 6 - 20 mg/dL 06/05/2025 7:29 AM EDT [facility] Creatinine, Blood 0.90 0.50 - 1.20 mg/dL 06/05/2025 7:29 AM EDT [facility] Glucose, Blood 141(H) 70 - 100 mg/dL 06/05/2025 7:29 AM EDT [facility] Calcium 8.7 8.4 - 10.3 mg/dL 06/05/2025 7:29 AM EDT [facility] Blood PERIPHERAL BLOOD SPECIMEN / Unknown Venipuncture / Unknown 06/05/2025 5:53 AM EDT 06/05/2025 6:37 AM EDT us Rabia Velasco MD LAB BLOOD ORDERABLES Final Resul t [facility] [address] [place] [address], [place] * (ABNORMAL) CBC (06/05/2025 5:53 AM EDT) Pathologist [facility] WBC 12.02(H) 4.00 - 10.00 K/uL 06/05/2025 7:06 AM EDT [facility] RBC 4.05(L) 4.60 - 6.10 M/uL 06/05/2025 7:06 AM EDT [facility] Hemoglobin 12.3(L) 13.7 - 17.5 g/dL 06/05/2025 7:06 AM EDT [facility] Hematocrit 38.7(L) 40.0 - 51.0 % 06/05/2025 7:06 AM EDT [facility] MCV 96 82 - 98 fL 06/05/2025 7:06 AM EDT [facility] MCH 30.4 26.0 - 32.0 pg 06/05/2025 7:06 AM EDT [facility] MCHC 31.8(L) 32.0 - 37.0 g/dL 06/05/2025 7:06 AM EDT [facility] RDW 13.2 10.5 - 15.5 % 06/05/2025 7:06 AM EDT [facility] RDW-SD 46.1 35.1 - 46.3 fL 06/05/2025 7:06 AM EDT [facility] Platelet Count 216 150 - 400 K/uL 06/05/2025 7:06 AM EDT [facility] Nucleated RBC 0 <=0 #/100 WBC 06/05/2025 7:06 AM T [facility] Blood PERIPHERAL BLOOD SPECIMEN / Unknown Venipuncture / Unknown 06/05/2025 5:53 AM EDT 06/05/2025 6:36 AM EDT us Urban Mondragon MD LAB BLOOD ORDERABLES Final Resul t [facility] [address] [place] [address], * (ABNORMAL) Hepatic Function Panel (06/05/2025 5:53 AM EDT) Total Protein 5.8(L) 6.4 - 8.3 g/dL 06/05/2025 7:34 AM EDT [facility] Albumin, Blood 2.6(L) 3.5 - 5.2 g/dL 06/05/2025 7:34 AM EDT [facility] Globulin Result 3.2 2.0 - 4.0 g/dL 06/05/2025 7:34 AM EDT [facility] Total Bilirubin 0.2 0.0 - 1.5 mg/dL 06/05/2025 7:34 AM EDT [facility] Direct Bilirubin <0.1 0.0 - 0.3 mg/dL 06/05/2025 7:34 AM EDT [facility] Alkaline Phosphatase 129 40 - 130 U/L 06/05/2025 7:34 AM EDT [facility] AST (SGOT) 19 0 - 40 U/L 06/05/2025 7:34 AM EDT [facility] ALT (SGPT) 8 0 - 40 U/L 06/05/2025 7:34 AM EDT [facility] Blood PERIPHERAL BLOOD SPECIMEN / Unknown Venipuncture / Unknown 06/05/2025 5:53 AM EDT 06/05/2025 6:37 AM EDT us Rabia Velasco MD LAB BLOOD ORDERABLES Final Resul t Performing Organization Address City/[facility]/ZIP Co de Phone Number [facility] [address] [place] [address], [place] * (ABNORMAL) POCT Glucose (06/05/2025 12:41 AM EDT) Glucose, POC 136(H) 70 - 100 mg/dL 06/05/2025 12:43 AM EDT [facility] Comment: @Serial Scllmu=[id number] @Technical Sales Specialist ZV=[id number] Blood 06/05/2025 12:4 1 AM EDT 06/05/2025 12:43 AM EDT us Urban Mondragon MD POCT ORDERABLES - DEVICE Final R esult Performing Organization Address City/[facility]/ZIP Co de Phone Number [facility] [address] [facility] [place] [address], [place] * (ABNORMAL) POCT Glucose (06/04/2025 6:40 PM EDT) Glucose, POC 110(H) 70 - 100 mg/dL 06/04/2025 6:41 PM EDT [facility] Comment: @Serial [id number]=[id number] @Technical Sales Specialist BP=[id number] Blood 06/04/2025 6:40 PM EDT 06/04/2025 6:41 PM EDT us Urban Mondragon MD POCT ORDERABLES - DEVICE Final R esult Performing Organization Address [facility]/ZIP Co de Phone Number [facility] [address] [place] [address], [place] * (ABNORMAL) POCT Glucose (06/04/2025 12:07 PM EDT) Glucose, POC 119(H) 70 - 100 mg/dL 06/04/2025 12:09 PM EDT [facility] Comment: @Serial Xtatrh=[id number] @Technical Sales Specialist DH=[id number] Blood 06/04/2025 12:0 7 PM EDT 06/04/2025 12:09 PM EDT us Urban Mondragon MD POCT ORDERABLES - DEVICE Final R esult Performing Organization Address [facility] Co de Phone Number [facility] [address] [place] [address], [place] * Phosphorus (06/04/2025 6:25 AM EDT) Phosphorus 2.8 2.7 - 4.5 mg/dL 06/04/2025 8:06 AM EDT [facility] Blood PERIPHERAL BLOOD SPECIMEN / Unknown Venipuncture / Unknown 06/04/2025 6:25 AM EDT 06/04/2025 7:15 AM EDT us Rabia Velasco MD LAB BLOOD ORDERABLES Final Resul t Performing Organization Address City/[facility]/ZIP Co de Phone Number [facility] [address] [place] [address], [place] * Magnesium (06/04/2025 6:25 AM EDT) Magnesium, Blood 2.1 1.6 - 2.6 mg/dL 06/04/2025 8:06 AM EDT [facility] Blood PERIPHERAL BLOOD SPECIMEN / Unknown Venipuncture / Unknown 06/04/2025 6:25 AM EDT 06/04/2025 7:15 AM EDT us Rabia Velasco MD LAB BLOOD ORDERABLES Final Resul t [facility] [address] [place] [address], [place] * (ABNORMAL) Basic Metabolic Panel (06/04/2025 6:25 AM EDT) Sodium 142 135 - 147 mmol/L 06/04/2025 8:06 AM EDT [facility] Potassium 4.2 3.5 - 5.4 mmol/L 06/04/2025 8:06 AM EDT [facility] Chloride 105 96 - 108 mmol/L 06/04/2025 8:06 AM EDT [facility] Total CO2/Bicarbonat e 29 22 - 32 mmol/L 06/04/2025 8:06 AM EDT [facility] Anion Gap 8(L) 10 - 18 mmol/L 06/04/2025 8:06 AM EDT [facility] BUN 37(H) 6 - 20 mg/dL 06/04/2025 8:06 AM EDT [facility] Creatinine, Blood 0.90 0.50 - 1.20 mg/dL 06/04/2025 8:06 AM EDT [facility] Glucose, Blood 115(H) 70 - 100 mg/dL 06/04/2025 8:06 AM EDT [facility] Calcium 9.1 8.4 - 10.3 mg/dL 06/04/2025 8:06 AM EDT [facility] Blood PERIPHERAL BLOOD SPECIMEN / Unknown Venipuncture / Unknown 06/04/2025 6:25 AM EDT 06/04/2025 7:15 AM EDT us Rabia Velasco MD LAB BLOOD ORDERABLES Final Resul t [facility] [address] [place] [address], [place] * (ABNORMAL) CBC (06/04/2025 6:25 AM EDT) WBC 12.09(H) 4.00 - 10.00 K/uL 06/04/2025 8:01 AM EDT [facility] RBC 4.04(L) 4.60 - 6.10 M/uL 06/04/2025 8:01 AM EDT [facility] Hemoglobin 12.1(L) 13.7 - 17.5 g/dL 06/04/2025 8:01 AM EDT [facility] Hematocrit 38.2(L) 40.0 - 51.0 % 06/04/2025 8:01 AM EDT [facility] MCV 95 82 - 98 fL 06/04/2025 8:01 AM EDT [facility] MCH 30.0 26.0 - 32.0 pg 06/04/2025 8:01 AM EDT [facility] MCHC 31.7(L) 32.0 - 37.0 g/dL 06/04/2025 8:01 AM EDT [facility] RDW 13.2 10.5 - 15.5 % 06/04/2025 8:01 AM EDT [facility] RDW-SD 46.0 35.1 - 46.3 fL 06/04/2025 8:01 AM EDT [facility] Platelet Count 218 150 - 400 K/uL 06/04/2025 8:01 AM EDT [facility] Nucleated RBC 0 <=0 #/100 WBC 06/04/2025 8:01 AM EDT [facility] Blood PERIPHERAL BLOOD SPECIMEN / Unknown Venipuncture / Unknown 06/04/2025 6:25 AM EDT 06/04/2025 7:17 AM EDT us Urban Mondragon MD LAB BLOOD ORDERABLES Final Resul t [facility] [address] [place] [address], [place] * (ABNORMAL) Hepatic Function Panel (06/04/2025 6:25 AM EDT) Total Protein 5.7(L) 6.4 - 8.3 g/dL 06/04/2025 8:06 AM EDT [facility] Albumin, Blood 2.5(L) 3.5 - 5.2 g/dL 06/04/2025 8:06 AM EDT [facility] Globulin Result 3.2 2.0 - 4.0 g/dL 06/04/2025 8:06 AM EDT [facility] Total Bilirubin 0.2 0.0 - 1.5 mg/dL 06/04/2025 8:06 AM EDT [facility] Direct Bilirubin 0.1 0.0 - 0.3 mg/dL 06/04/2025 8:06 AM EDT [facility] Alkaline Phosphatase 133(H) 40 - 130 U/L 06/04/2025 8:06 AM EDT [facility] AST (SGOT) 19 0 - 40 U/L 06/04/2025 8:06 AM EDT [facility] ALT (SGPT) 8 0 - 40 U/L 06/04/2025 8:06 AM EDT [facility] Blood PERIPHERAL BLOOD SPECIMEN / Unknown Venipuncture / Unknown 06/04/2025 6:25 AM EDT 06/04/2025 7:15 AM EDT us Rabia Velasco MD LAB BLOOD ORDERABLES Final Resul t [facility] [address] [place] [address], * (ABNORMAL) POCT Glucose (06/04/2025 5:17 AM EDT) Glucose, POC 156(H) 70 - 100 mg/dL 06/04/2025 5:21 AM EDT [facility] Comment: @Serial [id number]=[id number] @Technical Sales Specialist [id number] Blood 06/04/2025 5:17 AM EDT 06/04/2025 5:21 AM EDT us Urban Mondragon MD POCT ORDERABLES - DEVICE Final R esult Performing Organization Address City/[facility]/ZIP Co de Phone Number [facility] [address] [place] [address], [place] * ECG 12 lead (06/04/2025 5:14 AM EDT) Ventricular Heart Rate 111 BPM EKG [facility] Atrial Heart Rate 111 BPM EKG [facility] LA Interval 132 ms EKG [facility] QRSD Interval 94 ms EKG [facility] QT Interval 370 ms EKG [facility] QTC Interval 503 ms EKG [facility] P Mathews 64 degrees EKG [facility] MUSE R Mathews -33 degrees EKG [facility] MUSE T Wave Mathews 47 degrees EKG B[facility] MUSE 06/04/2025 5:14 AM EDT 06/04/2025 12:25 PM EDT Narrative EKG [facility] - 06/04/2025 12:25 PM EDT Sinus tachycardia Left axis deviation Moderate voltage criteria for LVH, may be normal variant When compared with ECG of 31-May-2025 10:34, No significant change was found Procedure Note Sammy Justice MD - 06/04/2025 Sinus tachycardia Left axis deviation Moderate voltage criteria for LVH, may be normal variant When compared with ECG of 31-May-2025 10:34, No significant change was found us Urban Mondragon MD ECG ORDERABLES Final Result EKG [facility] [address] [place] [address] * (ABNORMAL) POCT Glucose (06/04/2025 1:04 AM EDT) Glucose, POC 141(H) 70 - 100 mg/dL 06/04/2025 1:08 AM EDT [facility] Comment: @Serial Sxlzjo=[id number] @Technical Sales Specialist [id number] Blood 06/04/2025 1:04 AM EDT 06/04/2025 1:08 AM EDT us Urban Mondragon MD POCT ORDERABLES - DEVICE Final R esult Performing Organization Address [facility] [place] [address], [place] * (ABNORMAL) POCT Glucose (06/03/2025 6:31 PM EDT) Glucose, POC 104(H) 70 - 100 mg/dL 06/03/2025 6:32 PM EDT [facility] Comment: @Serial Fbvube=[id number] @Technical Sales Specialist HS=[id number] Blood 06/03/2025 6:31 PM EDT 06/03/2025 6:32 PM EDT us Urban Mondragon MD POCT ORDERABLES - DEVICE Final R esult Performing Organization Address [facility] [place] [address], [place] * (ABNORMAL) POCT Glucose (06/03/2025 11:49 AM EDT) Glucose, POC 182(H) 70 - 100 mg/dL 06/03/2025 11:55 AM EDT [facility] Comment: @Serial Wcxpjo=[id number] @Technical Sales Specialist IW=[id number] Blood 06/03/2025 11:4 9 AM EDT 06/03/2025 11:55 AM EDT us Urban Mondragon MD POCT ORDERABLES - DEVICE Final R esult Performing Organization Address [facility] [place] [address], [place] * Phosphorus (06/03/2025 6:08 AM EDT) Phosphorus 2.9 2.7 - 4.5 mg/dL 06/03/2025 7:19 AM EDT [facility] Blood PERIPHERAL BLOOD SPECIMEN / Unknown Venipuncture / Unknown 06/03/2025 6:08 AM EDT 06/03/2025 6:40 AM EDT us Rabia Velasco MD LAB BLOOD ORDERABLES Final Resul t [facility] [address] [place] [address], [place] * Magnesium (06/03/2025 6:08 AM EDT) Magnesium, Blood 2.2 1.6 - 2.6 mg/dL 06/03/2025 7:19 AM EDT [facility] Blood PERIPHERAL BLOOD SPECIMEN / Unknown Venipuncture / Unknown 06/03/2025 6:08 AM EDT 06/03/2025 6:40 AM EDT Rabia Velasco MD LAB BLOOD ORDERABLES Final Resul t [facility] [address] [place] [address], [place] * (ABNORMAL) Basic Metabolic Panel (06/03/2025 6:08 AM EDT) Sodium 145 135 - 147 mmol/L 06/03/2025 7:19 AM EDT [facility] Potassium 4.7 3.5 - 5.4 mmol/L 06/03/2025 7:19 AM EDT [facility] Chloride 108 96 - 108 mmol/L 06/03/2025 7:19 AM EDT [facility] Total CO2/Bicarbonat e 29 22 - 32 mmol/L 06/03/2025 7:19 AM EDT [facility] Anion Gap 8(L) 10 - 18 mmol/L 06/03/2025 7:19 AM EDT [facility] BUN 39(H) 6 - 20 mg/dL 06/03/2025 7:19 AM EDT [facility] Creatinine, Blood 0.90 0.50 - 1.20 mg/dL 06/03/2025 7:19 AM EDT [facility] Glucose, Blood 142(H) 70 - 100 mg/dL 06/03/2025 7:19 AM EDT [facility] Calcium 8.9 8.4 - 10.3 mg/dL 06/03/2025 7:19 AM EDT [facility] Blood PERIPHERAL BLOOD SPECIMEN / Unknown Venipuncture / Unknown 06/03/2025 6:08 AM EDT 06/03/2025 6:40 AM EDT us Rabia Velasco MD LAB BLOOD ORDERABLES Final Resul t [facility] [address] [place] [address], * (ABNORMAL) CBC (06/03/2025 6:08 AM EDT) WBC 15.35(H) 4.00 - 10.00 K/uL 06/03/2025 6:48 AM EDT [facility] RBC 4.16(L) 4.60 - 6.10 M/uL 06/03/2025 6:48 AM EDT [facility] Hemoglobin 12.5(L) 13.7 - 17.5 g/dL 06/03/2025 6:48 AM EDT [facility] Hematocrit 40.3 40.0 - 51.0 % 06/03/2025 6:48 AM EDT [facility] MCV 97 82 - 98 fL 06/03/2025 6:48 AM EDT [facility] MCH 30.0 26.0 - 32.0 pg 06/03/2025 6:48 AM EDT [facility] MCHC 31.0(L) 32.0 - 37.0 g/dL 06/03/2025 6:48 AM EDT [facility] RDW 13.3 10.5 - 15.5 % 06/03/2025 6:48 AM EDT [facility] RDW-SD 47.8(H) 35.1 - 46.3 fL 06/03/2025 6:48 AM EDT [facility] Platelet Count 243 150 - 400 K/uL 06/03/2025 6:48 AM EDT [facility] Nucleated RBC 0 <=0 #/100 WBC 06/03/2025 6:48 AM EDT [facility] Blood PERIPHERAL BLOOD SPECIMEN / Unknown Venipuncture / Unknown 06/03/2025 6:08 AM EDT 06/03/2025 6:39 AM EDT us Urban Mondragon MD LAB BLOOD ORDERABLES Final Resul t [facility] [address] [place] [address], [place] * (ABNORMAL) Hepatic Function Panel (06/03/2025 6:08 AM EDT) Total Protein 5.7(L) 6.4 - 8.3 g/dL 06/03/2025 7:19 AM EDT [facility] Albumin, Blood 2.4(L) 3.5 - 5.2 g/dL 06/03/2025 7:19 AM EDT [facility] Globulin Result 3.3 2.0 - 4.0 g/dL 06/03/2025 7:19 AM EDT [facility] Total Bilirubin 0.2 0.0 - 1.5 mg/dL 06/03/2025 7:19 AM EDT [facility] Direct Bilirubin 0.1 0.0 - 0.3 mg/dL 06/03/2025 7:19 AM EDT [facility] Alkaline Phosphatase 134(H) 40 - 130 U/L 06/03/2025 7:19 AM EDT [facility] AST (SGOT) 20 0 - 40 U/L 06/03/2025 7:19 AM EDT [facility] ALT (SGPT) 7 0 - 40 U/L 06/03/2025 7:19 AM EDT [facility] Blood PERIPHERAL BLOOD SPECIMEN / Unknown Venipuncture / Unknown 06/03/2025 6:08 AM EDT 06/03/2025 6:40 AM EDT us Rabia Velasco MD LAB BLOOD ORDERABLES Final Resul t Performing Organization Address City/[facility] de Phone Number [facility] [address] [place] [address], [place] * Clozapine Level, Blood (06/03/2025 6:08 AM EDT) Norclozapine 111 25 - 400 mcg/L 06/06/2025 5:00 PM EDT [facility] Clozapine 324 mcg/L 06/06/2025 5:00 PM EDT [facility] Comment: The therapeutic response begins to appear at 100 mcg/L. Refractory schizophrenia appears to require a therapeutic concentration of at least 350 mcg/L (trough, at steady state). Toxic range: Greater than 900 mcg/L This test was developed and its analytical performance characteristics have been determined by [employer] [place], [place]. It has not been cleared or approved by the U.S. Food and Drug Administration. This assay has been validated pursuant to the CLIA regulations and is used for clinical purposes. Blood PERIPHERAL BLOOD SPECIMEN / Unknown Venipuncture / Unknown 06/03/2025 6:08 AM EDT 06/03/2025 6:39 AM EDT Narrative [facility] - 06/06/2025 5:00 PM EDT Performing Organization Information: Site ID: [id number] Name: [facility] Address: [address] [place] [id number] Director: LEONEL RUIZ MD,PHD Urban Mondragon MD LAB BLOOD ORDERABLES Final Resul t Performing Organization Address [facility] Co de Phone Number [facility] [address] [place] [address], [place] [phone] * (ABNORMAL) POCT Glucose (06/03/2025 5:50 AM EDT) Glucose, POC 160(H) 70 - 100 mg/dL 06/03/2025 5:54 AM EDT [facility] Comment: @Serial Iqmajv=[id number] @Technical Sales Specialist [id number] Blood 06/03/2025 5:50 AM EDT 06/03/2025 5:54 AM EDT us Urban Mondragon MD POCT ORDERABLES - DEVICE Final R esult Performing Organization Address [facility] de Phone Number [facility] [address] [place] [address], [place] * (ABNORMAL) POCT Glucose (06/02/2025 11:44 PM EDT) Glucose, POC 141(H) 70 - 100 mg/dL 06/02/2025 11:56 PM EDT [facility] Comment: @Serial Hffvav=[id number] @Technical Sales Specialist [phone]=[id number] Blood 06/02/2025 11:4 4 PM EDT 06/02/2025 11:55 PM EDT us Urban Mondragon MD POCT ORDERABLES - DEVICE Final R esult Performing Organization Address [facility] de Phone Number [facility] [address] [place] [address], [place] * (ABNORMAL) POCT Glucose (06/02/2025 5:24 PM EDT) Glucose, POC 111(H) 70 - 100 mg/dL 06/02/2025 5:30 PM EDT [facility] Comment: @Serial Afqhfj=[id number] @Technical Sales Specialist [phone]=[id number] Blood 06/02/2025 5:24 PM EDT 06/02/2025 5:30 PM EDT us Urban Mondragon MD POCT ORDERABLES - DEVICE Final R esult Performing Organization Address [facility] Co de Phone Number [facility] [address] [place] [address], [place] * (ABNORMAL) POCT Glucose (06/02/2025 12:13 PM EDT) Glucose, POC 152(H) 70 - 100 mg/dL 06/02/2025 12:14 PM EDT [facility] Comment: @Serial Jmzuod=[id number] @Technical Sales Specialist [id number] Blood 06/02/2025 12:1 3 PM EDT 06/02/2025 12:14 PM EDT us Urban Mondragon MD POCT ORDERABLES - DEVICE Final R esult Performing Organization Address [facility] de Phone Number [facility] [address] [place] [address], * (ABNORMAL) POCT Glucose (06/02/2025 5:59 AM EDT) Glucose, POC 164(H) 70 - 100 mg/dL 06/02/2025 6:03 AM EDT [facility] Comment: @Serial Jznryx=[id number] @Technical Sales Specialist [id number] Blood 06/02/2025 5:59 AM EDT 06/02/2025 6:03 AM EDT us Urban Mondragon MD POCT ORDERABLES - DEVICE Final R esult Performing Organization Address [facility] Co de Phone Number [facility] [address] [place] [address], * (ABNORMAL) Manual Diff and Morph (06/02/2025 5:41 AM EDT) Neutrophil 73(H) 34 - 71 % 06/02/2025 8:02 AM EDT [facility] Lymphocyte 12(L) 19 - 53 % 06/02/2025 8:02 AM EDT [facility] Monocyte 7 5 - 13 % 06/02/2025 8:02 AM EDT [facility] Eosinophil 0(L) 1 - 7 % 06/02/2025 8:02 AM EDT [facility] Basophil 0 0 - 1 % 06/02/2025 8:02 AM EDT [facility] Band 4 0 - 5 % 06/02/2025 8:02 AM EDT [facility] Metamyelocyte 2(H) <=0 % 06/02/2025 8:02 AM EDT [facility] Myelocyte 2(H) <=0 % 06/02/2025 8:02 AM EDT [facility] Absolute Neutrophil Count 15.65(H) 1.60 - 6.10 K/uL 06/02/2025 8:02 AM T [facility] Absolute Lymphocyte Count 2.44 1.20 - 3.70 K/uL 06/02/2025 8:02 AM T [facility] Absolute Monocyte Count 1.42(H) 0.20 - 0.80 K/uL 06/02/2025 8:02 AM EDT [facility] Absolute Eosinophil Count 0.00(L) 0.04 - 0.54 K/uL 06/02/2025 8:02 AM T [facility] Absolute Basophil Count 0.00(L) 0.01 - 0.08 K/uL 06/02/2025 8:02 AM T [facility] Platelet Est Normal Normal 06/02/2025 8:02 AM T [facility] ANISOCYTOSIS 1+ 06/02/2025 8:02 AM EDT [facility] Microcytosis 1+ 06/02/2025 8:02 AM EDT [facility] Poikilocytosis 1+ 06/02/2025 8:02 AM T [facility] ACANTHOCYTES 1+ 06/02/2025 8:02 AM T [facility] OVALOCYTES 1+ 06/02/2025 8:02 AM T [facility] SCHISTOCYTES 1+ 06/02/2025 8:02 AM T [facility] SPHEROCYTES 1+ 06/02/2025 8:02 AM T [facility] TEAR DROP CELLS 1+ 8:02 AM T [facility] Total Cells Counted 100 06/02/2025 8:02 AM T [facility] Blood PERIPHERAL BLOOD SPECIMEN / Unknown Venipuncture / Unknown 06/02/2025 5:41 AM EDT 06/02/2025 5:45 AM EDT us Rabia Velasco MD LAB BLOOD ORDERABLES Final Resul t [facility] [address] [place] [address], [place] * Phosphorus (06/02/2025 5:41 AM EDT) Phosphorus 3.4 2.7 - 4.5 mg/dL 06/02/2025 6:25 AM EDT [facility] Blood PERIPHERAL BLOOD SPECIMEN / Unknown Venipuncture / Unknown 06/02/2025 5:41 AM EDT 06/02/2025 5:45 AM EDT us Rabia Velasco MD LAB BLOOD ORDERABLES Final Resul t Performing Organization Address City/[facility]/ZIP Co de Phone Number [facility] [address] [place] [address], [place] * Magnesium (06/02/2025 5:41 AM EDT) Pathologist [facility] Magnesium, Blood 2.4 1.6 - 2.6 mg/dL 06/02/2025 6:25 AM EDT [facility] Blood PERIPHERAL BLOOD SPECIMEN / Unknown Venipuncture / Unknown 06/02/2025 5:41 AM EDT 06/02/2025 5:45 AM EDT us Rabia Velasco MD LAB BLOOD ORDERABLES Final Resul t Performing Organization Address City/[facility]/ZIP Co de Phone Number [facility] [address] [place] [address], [place] * (ABNORMAL) Basic Metabolic Panel (06/02/2025 5:41 AM EDT) Sodium 144 135 - 147 mmol/L 06/02/2025 6:25 AM EDT [facility] Potassium 4.2 3.5 - 5.4 mmol/L 06/02/2025 6:25 AM EDT [facility] Chloride 106 96 - 108 mmol/L 06/02/2025 6:25 AM EDT [facility] Total CO2/Bicarbonat e 30 22 - 32 mmol/L 06/02/2025 6:25 AM EDT [facility] Anion Gap 8(L) 10 - 18 mmol/L 06/02/2025 6:25 AM EDT [facility] BUN 38(H) 6 - 20 mg/dL 06/02/2025 6:25 AM EDT [facility] Creatinine, Blood 0.80 0.50 - 1.20 mg/dL 06/02/2025 6:25 AM EDT [facility] Glucose, Blood 159(H) 70 - 100 mg/dL 06/02/2025 6:25 AM EDT [facility] Calcium 9.1 8.4 - 10.3 mg/dL 06/02/2025 6:25 AM EDT [facility] Blood PERIPHERAL BLOOD SPECIMEN / Unknown Venipuncture / Unknown 06/02/2025 5:41 AM EDT 06/02/2025 5:45 AM EDT us Rabia Velasco MD LAB BLOOD ORDERABLES Final Resul t [facility] [address] [place] [address], * (ABNORMAL) CBC and Differential (06/02/2025 5:41 AM EDT) WBC 20.32(H) 4.00 - 10.00 K/uL 06/02/2025 8:02 AM EDT [facility] RBC 4.37(L) 4.60 - 6.10 M/uL 06/02/2025 8:02 AM EDT [facility] Hemoglobin 13.1(L) 13.7 - 17.5 g/dL 06/02/2025 8:02 AM EDT [facility] Hematocrit 42.1 40.0 - 51.0 % 06/02/2025 8:02 AM EDT [facility] MCV 96 82 - 98 fL 06/02/2025 8:02 AM EDT [facility] MCH 30.0 26.0 - 32.0 pg 06/02/2025 8:02 AM EDT [facility] MCHC 31.1(L) 32.0 - 37.0 g/dL 06/02/2025 8:02 AM EDT [facility] RDW 13.3 10.5 - 15.5 % 06/02/2025 8:02 AM EDT [facility] RDW-SD 47.5(H) 35.1 - 46.3 fL 06/02/2025 8:02 AM EDT [facility] Platelet Count 281 150 - 400 K/uL 06/02/2025 8:02 AM EDT [facility] Blood PERIPHERAL BLOOD SPECIMEN / Unknown Venipuncture / Unknown 06/02/2025 5:41 AM EDT 06/02/2025 5:45 AM EDT us Rabia Velasco MD LAB BLOOD ORDERABLES Final Resul t [facility] [address] [place] [address], * (ABNORMAL) Hepatic Function Panel (06/02/2025 5:41 AM EDT) Total Protein 6.3(L) 6.4 - 8.3 g/dL 06/02/2025 6:25 AM EDT [facility] Albumin, Blood 2.6(L) 3.5 - 5.2 g/dL 06/02/2025 6:25 AM EDT [facility] Globulin Result 3.7 2.0 - 4.0 g/dL 06/02/2025 6:25 AM EDT [facility] Total Bilirubin 0.3 0.0 - 1.5 mg/dL 06/02/2025 6:25 AM EDT [facility] Direct Bilirubin 0.1 0.0 - 0.3 mg/dL 06/02/2025 6:25 AM EDT [facility] Alkaline Phosphatase 142(H) 40 - 130 U/L 06/02/2025 6:25 AM EDT [facility] AST (SGOT) 21 0 - 40 U/L 06/02/2025 6:25 AM EDT [facility] ALT (SGPT) 8 0 - 40 U/L 06/02/2025 6:25 AM EDT [facility] Blood PERIPHERAL BLOOD SPECIMEN / Unknown Venipuncture / Unknown 06/02/2025 5:41 AM EDT 06/02/2025 5:45 AM EDT Rabia Velasco MD LAB BLOOD ORDERABLES Final Resul t Performing Organization Address [facility] Co de Phone Number [facility] [address] [place] [address], [place] * (ABNORMAL) POCT Glucose (06/02/2025 12:15 AM EDT) Glucose, POC 144(H) 70 - 100 mg/dL 06/02/2025 12:41 AM EDT [facility] Comment: @Serial Wczddn=[id number] @Technical Sales Specialist [id number] Blood 06/02/2025 12:1 5 AM EDT 06/02/2025 12:41 AM EDT us Urban Mondragon MD POCT ORDERABLES - DEVICE Final R esult Performing Organization Address [facility] de Phone Number [facility] [address] [place] [address], [place] * POCT Glucose (06/01/2025 6:00 PM EDT) Glucose, POC 97 70 - 100 mg/dL 06/01/2025 6:03 PM EDT [facility] Comment: @Serial Vpjpit=[id number] @Technical Sales Specialist [id number] Blood 06/01/2025 6:00 PM EDT 06/01/2025 6:03 PM EDT us Urban Mondragon MD POCT ORDERABLES - DEVICE Final R esult Performing Organization Address [facility] Co de Phone Number [facility] [address] [place] [address], [place] * (ABNORMAL) POCT Glucose (06/01/2025 11:38 AM EDT) Glucose, POC 160(H) 70 - 100 mg/dL 06/01/2025 11:39 AM EDT [facility] Comment: @Serial Imzayu=[id number] @Technical Sales Specialist [id number] Blood 06/01/2025 11:3 8 AM EDT 06/01/2025 11:39 AM EDT Urban Mondragon MD POCT ORDERABLES - DEVICE Final R esult Performing Organization Address [facility] de Phone Number [facility] [address] [facility] [place] [address], * (ABNORMAL) POCT Glucose (06/01/2025 6:46 AM EDT) Glucose, POC 153(H) 70 - 100 mg/dL 06/02/2025 6:18 AM EDT [facility] Comment: @Serial Hoyjmz=[id number] @Technical Sales Specialist [id number] Blood 06/01/2025 6:46 AM EDT 06/02/2025 6:18 AM EDT Quan Coates MD POCT ORDERABLES - DEVICE Final R esult Performing Organization Address [facility] de Phone Number [facility] [address] [place] [address], * (ABNORMAL) Manual Diff and Morph (06/01/2025 5:36 AM EDT) Neutrophil 87(H) 34 - 71 % 06/01/2025 6:16 AM EDT [facility] Lymphocyte 7(L) 19 - 53 % 06/01/2025 6:16 AM EDT [facility] Monocyte 4(L) 5 - 13 % 06/01/2025 6:16 AM EDT [facility] Eosinophil 0(L) 1 - 7 % 06/01/2025 6:16 AM EDT [facility] Basophil 0 0 - 1 % 06/01/2025 6:16 AM EDT [facility] Metamyelocyte 1(H) <=0 % 06/01/2025 6:16 AM EDT [facility] Myelocyte 1(H) <=0 % 06/01/2025 6:16 AM EDT [facility] Absolute Neutrophil Count 17.01(H) 1.60 - 6.10 K/uL 06/01/2025 6:16 AM EDT [facility] Absolute Lymphocyte Count 1.37 1.20 - 3.70 K/uL 06/01/2025 6:16 AM EDT [facility] Absolute Monocyte Count 0.78 0.20 - 0.80 K/uL 06/01/2025 6:16 AM EDT [facility] Absolute Eosinophil Count 0.00(L) 0.04 - 0.54 K/uL 06/01/2025 6:16 AM EDT [facility] Absolute Basophil Count 0.00(L) 0.01 - 0.08 K/uL 06/01/2025 6:16 AM EDT [facility] Platelet Est Normal Normal 06/01/2025 6:16 AM EDT [facility] ANISOCYTOSIS 1+ 06/01/2025 6:16 AM EDT [facility] Poikilocytosis 1+ 06/01/2025 6:16 AM EDT [facility] OVALOCYTES 1+ 06/01/2025 6:16 AM EDT [facility] Total Cells Counted 100 06/01/2025 6:16 AM EDT [facility] Blood PERIPHERAL BLOOD SPECIMEN / Unknown Venipuncture / Unknown 06/01/2025 5:36 AM EDT 06/01/2025 5:41 AM EDT us Rabia Velasco MD LAB BLOOD ORDERABLES Final Resul t [facility] [address] [place] [address], * Phosphorus (06/01/2025 5:36 AM EDT) Phosphorus 3.2 2.7 - 4.5 mg/dL 06/01/2025 6:15 AM EDT [facility] Blood PERIPHERAL BLOOD SPECIMEN / Unknown Venipuncture / Unknown 06/01/2025 5:36 AM EDT 06/01/2025 5:42 AM EDT us Rabia Velasco MD LAB BLOOD ORDERABLES Final Resul t [facility] [address] [place] [address], [place] * Magnesium (06/01/2025 5:36 AM EDT) Pathologist [facility] Magnesium, Blood 2.3 1.6 - 2.6 mg/dL 06/01/2025 6:15 AM EDT [facility] Blood PERIPHERAL BLOOD SPECIMEN / Unknown Venipuncture / Unknown 06/01/2025 5:36 AM EDT 06/01/2025 5:42 AM EDT us Rabia Velasco MD LAB BLOOD ORDERABLES Final Resul t Performing Organization Address [facility] Co de Phone Number [facility] [address] [place] [address], [place] * (ABNORMAL) Basic Metabolic Panel (06/01/2025 5:36 AM EDT) [facility] Sodium 146 135 - 147 mmol/L 06/01/2025 6:15 AM EDT [facility] Potassium 4.1 3.5 - 5.4 mmol/L 06/01/2025 6:15 AM EDT [facility] Chloride 108 96 - 108 mmol/L 06/01/2025 6:15 AM EDT [facility] Total CO2/Bicarbonat e 30 22 - 32 mmol/L 06/01/2025 6:15 AM EDT [facility] Anion Gap 8(L) 10 - 18 mmol/L 06/01/2025 6:15 AM EDT [facility] BUN 46(H) 6 - 20 mg/dL 06/01/2025 6:15 AM EDT [facility] Creatinine, Blood 0.80 0.50 - 1.20 mg/dL 06/01/2025 6:15 AM EDT [facility] Glucose, Blood 151(H) 70 - 100 mg/dL 06/01/2025 6:15 AM EDT [facility] Calcium 9.1 8.4 - 10.3 mg/dL 06/01/2025 6:15 AM EDT [facility] Estimated GFR(CKD-EPI) 96 mL/min/BSA 06/01/2025 6:15 AM EDT [facility] Blood PERIPHERAL BLOOD SPECIMEN / Unknown Venipuncture / Unknown 06/01/2025 5:36 AM EDT 06/01/2025 5:42 AM EDT us Rabia Velasco MD LAB BLOOD ORDERABLES Final Resul t [facility] [address] [place] [address], [place] * (ABNORMAL) CBC and Differential (06/01/2025 5:36 AM EDT) WBC 19.55(H) 4.00 - 10.00 K/uL 06/01/2025 6:16 AM EDT [facility] RBC 4.28(L) 4.60 - 6.10 M/uL 06/01/2025 6:16 AM EDT [facility] Hemoglobin 13.0(L) 13.7 - 17.5 g/dL 06/01/2025 6:16 AM EDT [facility] Hematocrit 40.9 40.0 - 51.0 % 06/01/2025 6:16 AM EDT [facility] MCV 96 82 - 98 fL 06/01/2025 6:16 AM EDT [facility] MCH 30.4 26.0 - 32.0 pg 06/01/2025 6:16 AM EDT [facility] MCHC 31.8(L) 32.0 - 37.0 g/dL 06/01/2025 6:16 AM EDT [facility] RDW 13.4 10.5 - 15.5 % 06/01/2025 6:16 AM EDT [facility] RDW-SD 47.8(H) 35.1 - 46.3 fL 06/01/2025 6:16 AM EDT [facility] Platelet Count 327 150 - 400 K/uL 06/01/2025 6:16 AM EDT [facility] Blood PERIPHERAL BLOOD SPECIMEN / Unknown Venipuncture / Unknown 06/01/2025 5:36 AM EDT 06/01/2025 5:41 AM EDT us Rabia Velasco MD LAB BLOOD ORDERABLES Final Resul t Performing Organization Address City/[facility]/ZIP Co de Phone Number [facility] [address] [place] [address], [place] * (ABNORMAL) Hepatic Function Panel (06/01/2025 5:36 AM EDT) Total Protein 6.1(L) 6.4 - 8.3 g/dL 06/01/2025 6:15 AM EDT [facility] Albumin, Blood 2.6(L) 3.5 - 5.2 g/dL 06/01/2025 6:15 AM EDT [facility] Globulin Result 3.5 2.0 - 4.0 g/dL 06/01/2025 6:15 AM EDT [facility] Total Bilirubin 0.2 0.0 - 1.5 mg/dL 06/01/2025 6:15 AM EDT [facility] Direct Bilirubin 0.1 0.0 - 0.3 mg/dL 06/01/2025 6:15 AM EDT [facility] Alkaline Phosphatase 138(H) 40 - 130 U/L 06/01/2025 6:15 AM EDT [facility] AST (SGOT) 22 0 - 40 U/L 06/01/2025 6:15 AM EDT [facility] ALT (SGPT) 9 0 - 40 U/L 06/01/2025 6:15 AM EDT [facility] Blood PERIPHERAL BLOOD SPECIMEN / Unknown Venipuncture / Unknown 06/01/2025 5:36 AM EDT 06/01/2025 5:42 AM EDT us Rabia Velasco MD LAB BLOOD ORDERABLES Final Resul t Performing Organization Address City/[facility]/ZIP Co de Phone Number [facility] [address] [place] [address], [place] * (ABNORMAL) POCT Glucose (06/01/2025 12:53 AM EDT) Glucose, POC 157(H) 70 - 100 mg/dL 06/01/2025 12:55 AM EDT [facility] Comment: @Serial Intqoe=[id number] @Technical Sales Specialist [id number] Blood 06/01/2025 12:5 3 AM EDT 06/01/2025 12:55 AM EDT us Urban Mondragon MD POCT ORDERABLES - DEVICE Final R esult Performing Organization Address [facility] de Phone Number [facility] [address] [place] [address], [place] * (ABNORMAL) POCT Glucose (05/31/2025 5:39 PM EDT) Glucose, POC 166(H) 70 - 100 mg/dL 05/31/2025 5:46 PM EDT [facility] Comment: @Serial Hbfjqf=[id number] @Technical Sales Specialist [phone]=[id number] Blood 05/31/2025 5:39 PM EDT 05/31/2025 5:46 PM EDT us Urban Mondragon MD POCT ORDERABLES - DEVICE Final R esult Performing Organization Address [facility] de Phone Number [facility] [address] [place] [address], [place] * (ABNORMAL) POCT Glucose (05/31/2025 12:43 PM EDT) Glucose, POC 182(H) 70 - 100 mg/dL 05/31/2025 12:44 PM EDT [facility] Comment: @Serial Nynvbw=[id number] @Technical Sales Specialist [phone]=[id number] Blood 05/31/2025 12:4 3 PM EDT 05/31/2025 12:44 PM EDT us Urban Mondragon MD POCT ORDERABLES - DEVICE Final R esult Performing Organization Address [facility] de Phone Number [facility] [address] [place] [address], [place] * ECG 12 lead (05/31/2025 10:34 AM EDT) Ventricular Heart Rate 78 BPM EKG [facility] Atrial Heart Rate 78 BPM EKG [facility] LA Interval 122 ms EKG [facility] QRSD Interval 106 ms EKG [facility] QT Interval 414 ms EKG [facility] QTC Interval 471 ms EKG [facility] P Mathews 62 degrees EKG [facility]USE R Mathews -28 degrees EKG [facility] T Wave Mathews 36 degrees EKG [facility] 05/31/2025 10:3 4 AM EDT 06/01/2025 7:27 AM EDT Narrative EKG [facility] - 06/01/2025 7:27 AM EDT Normal sinus rhythm sinus arrhythmia Normal ECG When compared with ECG of 29-May-2025 11:00, Criteria for Septal infarct are no longer present Procedure Note Robin Benites MD - 06/01/2025 Normal sinus rhythm sinus arrhythmia Normal ECG When compared with ECG of 29-May-2025 11:00, Criteria for Septal infarct are no longer present Urban Mondragon MD ECG ORDERABLES Final Result EKG [facility] [address] [place] [id number] * (ABNORMAL) POCT Glucose (05/31/2025 6:09 AM EDT) Glucose, POC 181(H) 70 - 100 mg/dL 05/31/2025 6:18 AM EDT [facility] Comment: @Serial Dnrefj=[id number] @Technical Sales Specialist DJ=[id number] Blood 05/31/2025 6:09 AM EDT 05/31/2025 6:18 AM EDT Urban Mondragon MD POCT ORDERABLES - DEVICE Final R esult Performing Organization Address City/[facility]/ZIP Co de Phone Number [facility] [address] [place] [address], [place] * (ABNORMAL) POCT Glucose (05/30/2025 12:35 PM EDT) Glucose, POC 232(H) 70 - 100 mg/dL 05/31/2025 2:24 AM EDT [facility] Comment: @Serial Wrbdkq=[id number] @Technical Sales Specialist AR=[id number] Blood 05/30/2025 12:3 5 PM EDT 05/31/2025 2:24 AM EDT us Urban Mondragon MD POCT ORDERABLES - DEVICE Final R esult Performing Organization Address [facility] Co de Phone Number [facility] [address] [facility] [place] [address], [place] * (ABNORMAL) Manual Diff and Morph (05/30/2025 7:50 AM EDT) Neutrophil 92(H) 34 - 71 % 05/30/2025 12:36 PM EDT [facility] Comment:Toxic Granulation Lymphocyte 2(L) 19 - 53 % 05/30/2025 12:36 PM EDT [facility] Monocyte 4(L) 5 - 13 % 05/30/2025 12:36 PM EDT [facility] Eosinophil 0(L) 1 - 7 % 05/30/2025 12:36 PM EDT [facility] Basophil 0 0 - 1 % 05/30/2025 12:36 PM EDT [facility] Band 1 0 - 5 % 05/30/2025 12:36 PM EDT [facility] Promyelocyte 1(H) <=0 % 05/30/2025 12:36 PM EDT [facility] Nucleated RBC 1(H) <=0 #/100 WBC 05/30/2025 12:36 PM EDT [facility] Absolute Neutrophil Count 19.48(H) 1.60 - 6.10 K/uL 05/30/2025 12:36 PM EDT [facility] Absolute Lymphocyte Count 0.42(L) 1.20 - 3.70 K/uL 05/30/2025 12:36 PM EDT [facility] Absolute Monocyte Count 0.84(H) 0.20 - 0.80 K/uL 05/30/2025 12:36 PM EDT [facility] Absolute Eosinophil Count 0.00(L) 0.04 - 0.54 K/uL 05/30/2025 12:36 PM EDT [facility] Absolute Basophil Count 0.00(L) 0.01 - 0.08 K/uL 05/30/2025 12:36 PM EDT [facility] Platelet Est Unable to perform platelet estimate due to platelet clumping.(A ) Normal 05/30/2025 12:36 PM EDT [facility] ANISOCYTOSIS 1+ 05/30/2025 12:36 PM EDT [facility] Macrocytosis 1+ 05/30/2025 12:36 PM EDT [facility] Poikilocytosis 105/30/2025 12:36 PM EDT [facility] Echinocytes 105/30/2025 12:36 PM EDT [facility] OVALOCYTES 1+ 05/30/2025 12:36 PM EDT [facility] TEAR DROP CELLS 1 12:36 PM EDT [facility] Total Cells Counted 100 05/30/2025 12:36 PM EDT [facility] Blood PERIPHERAL BLOOD SPECIMEN / Unknown Venipuncture / Unknown 05/30/2025 7:50 AM EDT 05/30/2025 8:10 AM EDT us Rabia Velasco MD LAB BLOOD ORDERABLES Final Resul t [facility] [address] [place] [address], * Phosphorus (05/30/2025 7:50 AM EDT) Phosphorus 3.0 2.7 - 4.5 mg/dL 05/30/2025 8:58 AM EDT [facility] Blood PERIPHERAL BLOOD SPECIMEN / Unknown Venipuncture / Unknown 05/30/2025 7:50 AM EDT 05/30/2025 8:09 AM EDT us Rabia Velasco MD LAB BLOOD ORDERABLES Final Resul t Performing Organization Address City/[facility]/ZIP Co de Phone Number [facility] [address] [place] [address], * (ABNORMAL) Magnesium (05/30/2025 7:50 AM EDT) Magnesium, Blood 2.7(H) 1.6 - 2.6 mg/dL 05/30/2025 8:58 AM EDT [facility] Blood PERIPHERAL BLOOD SPECIMEN / Unknown Venipuncture / Unknown 05/30/2025 7:50 AM EDT 05/30/2025 8:09 AM EDT us Rabia Velasco MD LAB BLOOD ORDERABLES Final Resul t Performing Organization Address City/[facility] Co de Phone Number [facility] [address] [place] [address], [place] * (ABNORMAL) Basic Metabolic Panel (05/30/2025 7:50 AM EDT) Sodium 148(H) 135 - 147 mmol/L 05/30/2025 8:58 AM EDT [facility] Potassium 3.9 3.5 - 5.4 mmol/L 05/30/2025 8:58 AM EDT [facility] Chloride 110(H) 96 - 108 mmol/L 05/30/2025 8:58 AM EDT [facility] Total CO2/Bicarbonat e 28 22 - 32 mmol/L 05/30/2025 8:58 AM EDT [facility] Anion Gap 10 10 - 18 mmol/L 05/30/2025 8:58 AM EDT [facility] BUN 54(H) 6 - 20 mg/dL 05/30/2025 8:58 AM EDT [facility] Creatinine, Blood 1.00 0.50 - 1.20 mg/dL 05/30/2025 8:58 AM EDT [facility] Glucose, Blood 172(H) 70 - 100 mg/dL 05/30/2025 8:58 AM EDT [facility] Calcium 9.0 8.4 - 10.3 mg/dL 05/30/2025 8:58 AM EDT [facility] Blood PERIPHERAL BLOOD SPECIMEN / Unknown Venipuncture / Unknown 05/30/2025 7:50 AM EDT 05/30/2025 8:09 AM EDT us Rabia Velasco MD LAB BLOOD ORDERABLES Final Resul t [facility] [address] [place] [address], [place] * (ABNORMAL) CBC and Differential (05/30/2025 7:50 AM EDT) WBC 20.95(H) 4.00 - 10.00 K/uL 05/30/2025 12:36 PM EDT [facility] RBC 3.76(L) 4.60 - 6.10 M/uL 05/30/2025 12:36 PM EDT [facility] Hemoglobin 11.5(L) 13.7 - 17.5 g/dL 05/30/2025 12:36 PM EDT [facility] Hematocrit 37.0(L) 40.0 - 51.0 % 05/30/2025 12:36 PM EDT [facility] MCV 98 82 - 98 fL 05/30/2025 12:36 PM EDT [facility] MCH 30.6 26.0 - 32.0 pg 05/30/2025 12:36 PM EDT [facility] MCHC 31.1(L) 32.0 - 37.0 g/dL 05/30/2025 12:36 PM EDT [facility] RDW 13.8 10.5 - 15.5 % 05/30/2025 12:36 PM EDT [facility] RDW-SD 49.3(H) 35.1 - 46.3 fL 05/30/2025 12:36 PM EDT [facility] Platelet Count 05/30/2025 12:36 PM EDT [facility] Comment: Unable to report due to platelet clump blue top requested Previously reported as 341 K/uL on 05/30/2025 at 8:31 AM EDT Platelet Count 05/30/2025 12:36 PM EDT [facility] Comment:Unable to report due to platelet clump blue top requested Blood PERIPHERAL BLOOD SPECIMEN / Unknown Venipuncture / Unknown 05/30/2025 7:50 AM EDT 05/30/2025 8:10 AM EDT us Rabia Velasco MD LAB BLOOD ORDERABLES Final Resul t [facility] [address] [place] [address], * (ABNORMAL) Hepatic Function Panel (05/30/2025 7:50 AM EDT) Total Protein 5.9(L) 6.4 - 8.3 g/dL 05/30/2025 9:17 AM EDT [facility] Albumin, Blood 2.4(L) 3.5 - 5.2 g/dL 05/30/2025 9:17 AM EDT [facility] Globulin Result 3.5 2.0 - 4.0 g/dL 05/30/2025 9:17 AM EDT [facility] Total Bilirubin <0.2 0.0 - 1.5 mg/dL 05/30/2025 9:17 AM EDT [facility] Direct Bilirubin 0.1 0.0 - 0.3 mg/dL 05/30/2025 9:17 AM EDT [facility] Alkaline Phosphatase 132(H) 40 - 130 U/L 05/30/2025 9:17 AM EDT [facility] AST (SGOT) 19 0 - 40 U/L 05/30/2025 9:17 AM EDT [facility] ALT (SGPT) 7 0 - 40 U/L 05/30/2025 9:17 AM EDT [facility] Blood PERIPHERAL BLOOD SPECIMEN / Unknown Venipuncture / Unknown 05/30/2025 7:50 AM EDT 05/30/2025 8:09 AM EDT us Rabia Velasco MD LAB BLOOD ORDERABLES Final Resul t Performing Organization Address [facility]/ZIP Co de Phone Number [facility] [address] [place] [address], [place] * (ABNORMAL) POCT Glucose (05/30/2025 5:38 AM EDT) Glucose, POC 174(H) 70 - 100 mg/dL 05/30/2025 5:39 AM EDT [facility] Comment: @Serial Dsyvvu=[id number] @Technical Sales Specialist GZ=[id number] Blood 05/30/2025 5:38 AM EDT 05/30/2025 5:39 AM EDT us Rabia Velasco MD POCT ORDERABLES - DEVICE Final R esult Performing Organization Address [facility] de Phone Number [facility] [address] [place] [address], [place] * (ABNORMAL) POCT Glucose (05/29/2025 11:49 PM EDT) Glucose, POC 192(H) 70 - 100 mg/dL 05/30/2025 12:06 AM EDT [facility] Comment: @Serial Vmzuyr=[id number] @Technical Sales Specialist ZE=[id number] Blood 05/29/2025 11:4 9 PM EDT 05/30/2025 12:06 AM EDT us Rabia Velasco MD POCT ORDERABLES - DEVICE Final R esult Performing Organization Address [facility] Co de Phone Number [facility] [address] [place] [address], [place] * (ABNORMAL) POCT Glucose (05/29/2025 5:32 PM EDT) Glucose, POC 159(H) 70 - 100 mg/dL 05/29/2025 5:33 PM EDT [facility] Comment: @Serial Quevng=[id number] @Technical Sales Specialist EH=[id number] Blood 05/29/2025 5:32 PM EDT 05/29/2025 5:33 PM EDT us Raiba Velasco MD POCT ORDERABLES - DEVICE Final R esult Performing Organization Address City/[facility] Co de Phone Number [facility] [address] [facility] [place] [address], [place] * (ABNORMAL) POCT Glucose (05/29/2025 12:23 PM EDT) Glucose, POC 152(H) 70 - 100 mg/dL 05/29/2025 1:27 PM EDT [facility] Comment: @Serial Reuvij=[id number] @Technical Sales Specialist QY=[id number] Blood 05/29/2025 12:2 3 PM EDT 05/29/2025 1:27 PM EDT Rabia Velasco MD POCT ORDERABLES - DEVICE Final R esult Performing Organization Address City/[facility] Co de Phone Number [facility] [address] [facility] [place] [address], [place] * XR Abdomen Portable (05/29/2025 11:22 AM EDT) Anatomical Region Laterality Modality Abdomen Digital Radiogra phy 05/29/2025 5:03 PM EDT Impressions 05/30/2025 4:26 PM EDT No significant stool burden. Normal gas distribution throughout large and small bowel loops. BY ELECTRONICALLY SIGNING THIS REPORT, I THE ATTENDING PHYSICIAN ATTEST THAT I HAVE REVIEWED THE IMAGES FOR THE ABOVE PROCEDURE(S) AND AGREE WITH THE FINDINGS DOCUMENTED. Miguelito Thibodeaux MD, electronically signed on May 30 2025 04:26PM Narrative 05/30/2025 4:26 PM EDT INDICATION: bowel gas and stool eval; TECHNIQUE: Portable supine abdominal radiograph was obtained. COMPARISON: XR Abdomen dated 28 May 2025. FINDINGS: There are no abnormally dilated loops of large or small bowel. Nonobstructive bowel gas pattern. Supine assessment limits detection for free air; there is no gross pneumoperitoneum. Osseous structures are unremarkable. Status post lower lumbar spine fusion. There are no unexplained soft tissue calcifications or radiopaque foreign bodies. Procedure Note Shahrzad Thibodeaux MD - 05/30/2025 INDICATION: bowel gas and stool eval; TECHNIQUE: Portable supine abdominal radiograph was obtained. COMPARISON: XR Abdomen dated 28 May 2025. FINDINGS: There are no abnormally dilated loops of large or small bowel.Nonobstructive bowel gas pattern. Supine assessment limits detection for free air; there is no grosspneumoperitoneum. Osseous structures are unremarkable. Status post lower lumbar spinefusion. There are no unexplained soft tissue calcifications or radiopaque foreignbodies. IMPRESSION: No significant stool burden. Normal gas distribution throughout largeand small bowel loops. BY ELECTRONICALLY SIGNING THIS REPORT, I THE ATTENDING PHYSICIAN ATTESTTHAT I HAVE REVIEWED THE IMAGES FOR THE ABOVE PROCEDURE(S) AND AGREE WITHTHE FINDINGS DOCUMENTED. Miguelito Thibodeaux MD, electronically signed on May 30 2025 04:26PM Rabia Velasco MD IMG DIAGNOSTIC IMAGING ORDERABLE S Final Result * ECG 12 lead (05/29/2025 11:13 AM EDT) Ventricular Heart Rate 94 BPM EKG BUR MUSE Atrial Heart Rate 94 BPM EKG B[facility] MUSE LA Interval 132 ms EKG BUR MUSE QRSD Interval 102 ms EKG BUR MUSE QT Interval 408 ms EKG B[facility] MUSE QTC Interval 510 ms EKG BUR MUSE P Mathews 49 degrees EKG BUR MUSE R Mathews -27 degrees EKG BUR MUSE T Wave Mathews 31 degrees EKG BUR MUSE 05/29/2025 11:0 0 AM EDT 05/31/2025 9:41 AM EDT Narrative EKG BUR MUSE - 05/31/2025 9:41 AM EDT Normal sinus rhythm Poor R wave progression Prolonged QT interval Abnormal ECG When compared with ECG of 27-May-2025 21:25, no significant change Procedure Note Palomo Solomon MD - 05/31/2025 Normal sinus rhythm Poor R wave progression Prolonged QT interval Abnormal ECG When compared with ECG of 27-May-2025 21:25, no significant change us Rabia Velasco MD ECG ORDERABLES Final Result Performing Organization Address City/[facility]/ZIP Co de Phone Number EKG BUR MUSE [address] [place] [id number] * RBC WBC PLT Morphology (05/29/2025 6:20 AM EDT) Platelet Est Normal Normal 05/29/2025 8:13 AM EDT [facility] ANISOCYTOSIS 1+ 05/29/2025 8:13 AM EDT [facility] Microcytosis 1+ 05/29/2025 8:13 AM EDT [facility] POLYCHROMASIA 1+ 05/29/2025 8:13 AM EDT [facility] Poikilocytosis 105/29/2025 8:13 AM EDT [facility] OVALOCYTES 1+ 05/29/2025 8:13 AM EDT [facility] SPHEROCYTES 1+ 05/29/2025 8:13 AM EDT [facility] TEAR DROP CELLS 1 8:13 AM EDT [facility] ACANTHOCYTES 1+ 05/29/2025 8:13 AM EDT [facility] Blood PERIPHERAL BLOOD SPECIMEN / Unknown Venipuncture / Unknown 05/29/2025 6:20 AM EDT 05/29/2025 6:29 AM EDT us Rabia Velasco MD LAB BLOOD ORDERABLES Final Resul t [facility] [address] [place] [address], * Phosphorus (05/29/2025 6:20 AM EDT) Phosphorus 3.5 2.7 - 4.5 mg/dL 05/29/2025 7:01 AM EDT [facility] Blood PERIPHERAL BLOOD SPECIMEN / Unknown Venipuncture / Unknown 05/29/2025 6:20 AM EDT 05/29/2025 6:27 AM EDT us Rabia Velasco MD LAB BLOOD ORDERABLES Final Resul t Performing Organization Address City/[facility]/ZIP Co de Phone Number [facility] [address] [place] [address], * (ABNORMAL) Magnesium (05/29/2025 6:20 AM EDT) Magnesium, Blood 2.9(H) 1.6 - 2.6 mg/dL 05/29/2025 7:01 AM EDT [facility] Blood PERIPHERAL BLOOD SPECIMEN / Unknown Venipuncture / Unknown 05/29/2025 6:20 AM EDT 05/29/2025 6:27 AM EDT us Rabia Velasco MD LAB BLOOD ORDERABLES Final Resul t Performing Organization Address [facility] Co de Phone Number [facility] [address] [place] [address], [place] * (ABNORMAL) Basic Metabolic Panel (05/29/2025 6:20 AM EDT) Sodium 147 135 - 147 mmol/L 05/29/2025 7:01 AM EDT [facility] Potassium 3.7 3.5 - 5.4 mmol/L 05/29/2025 7:01 AM EDT [facility] Chloride 108 96 - 108 mmol/L 05/29/2025 7:01 AM EDT [facility] Total CO2/Bicarbonat e 29 22 - 32 mmol/L 05/29/2025 7:01 AM EDT [facility] Anion Gap 10 10 - 18 mmol/L 05/29/2025 7:01 AM EDT [facility] BUN 43(H) 6 - 20 mg/dL 05/29/2025 7:01 AM EDT [facility] Creatinine, Blood 0.90 0.50 - 1.20 mg/dL 05/29/2025 7:01 AM EDT [facility] Glucose, Blood 128(H) 70 - 100 mg/dL 05/29/2025 7:01 AM EDT [facility] Calcium 9.0 8.4 - 10.3 mg/dL 05/29/2025 7:01 AM EDT [facility] Blood PERIPHERAL BLOOD SPECIMEN / Unknown Venipuncture / Unknown 05/29/2025 6:20 AM EDT 05/29/2025 6:27 AM EDT us Rabia Velasco MD LAB BLOOD ORDERABLES Final Resul t [facility] [address] [place] [address], [place] * (ABNORMAL) CBC and Differential (05/29/2025 6:20 AM EDT) WBC 15.58(H) 4.00 - 10.00 K/uL 05/29/2025 8:13 AM EDT [facility] RBC 3.78(L) 4.60 - 6.10 M/uL 05/29/2025 8:13 AM EDT [facility] Hemoglobin 11.5(L) 13.7 - 17.5 g/dL 05/29/2025 8:13 AM EDT [facility] Hematocrit 36.6(L) 40.0 - 51.0 % 05/29/2025 8:13 AM EDT [facility] MCV 97 82 - 98 fL 05/29/2025 8:13 AM EDT [facility] MCH 30.4 26.0 - 32.0 pg 05/29/2025 8:13 AM EDT [facility] MCHC 31.4(L) 32.0 - 37.0 g/dL 05/29/2025 8:13 AM EDT [facility] RDW 13.4 10.5 - 15.5 % 05/29/2025 8:13 AM EDT [facility] RDW-SD 48.3(H) 35.1 - 46.3 fL 05/29/2025 8:13 AM EDT [facility] Platelet Count 313 150 - 400 K/uL 05/29/2025 8:13 AM EDT [facility] Nucleated RBC 0 <=0 #/100 WBC 05/29/2025 8:13 AM T [facility] Neutrophil 87.7(H) 34.0 - 71.0 % 05/29/2025 8:13 AM T [facility] Lymphocyte 3.8(L) 19.0 - 53.0 % 05/29/2025 8:13 AM T [facility] Monocyte 3.8(L) 5.0 - 13.0 % 05/29/2025 8:13 AM T [facility] Eosinophil 0.1(L) 1.0 - 7.0 % 05/29/2025 8:13 AM T [facility] Basophil 0.6 0.0 - 1.0 % 05/29/2025 8:13 AM [facility] Immature Granulocyte (Villard, Myelo, Promyelocyte) 4.0(H) 0.0 - 0.6 % 05/29/2025 8:13 AM T [facility] Absolute Neutrophil Count 13.67(H) 1.60 - 6.10 K/uL 05/29/2025 8:13 AM T [facility] Absolute Lymphocyte Count 0.59(L) 1.20 - 3.70 K/uL 05/29/2025 8:13 AM T [facility] Absolute Monocyte Count 0.59 0.20 - 0.80 K/uL 05/29/2025 8:13 AM T [facility] Absolute Eosinophil Count 0.01(L) 0.04 - 0.54 K/uL 05/29/2025 8:13 AM T [facility] Absolute Basophil Count 0.10(H) 0.01 - 0.08 K/uL 05/29/2025 8:13 AM [facility] Absolute Immature Granulocyte (Villard, Myelo, Promyelocyte) 0.62(H) 0.00 - 0.09 K/uL 05/29/2025 8:13 AM [facility] Blood PERIPHERAL BLOOD SPECIMEN / Unknown Venipuncture / Unknown 05/29/2025 6:20 AM EDT 05/29/2025 6:29 AM EDT us Rabia Velasco MD LAB BLOOD ORDERABLES Final Resul t [facility] [address] [place] [address], [place] * (ABNORMAL) Hepatic Function Panel (05/29/2025 6:20 AM EDT) Total Protein 6.4 6.4 - 8.3 g/dL 05/29/2025 7:01 AM EDT [facility] Albumin, Blood 2.6(L) 3.5 - 5.2 g/dL 05/29/2025 7:01 AM EDT [facility] Globulin Result 3.8 2.0 - 4.0 g/dL 05/29/2025 7:01 AM EDT [facility] Total Bilirubin 0.2 0.0 - 1.5 mg/dL 05/29/2025 7:01 AM EDT [facility] Direct Bilirubin 0.1 0.0 - 0.3 mg/dL 05/29/2025 7:01 AM EDT [facility] Alkaline Phosphatase 105 40 - 130 U/L 05/29/2025 7:01 AM EDT [facility] AST (SGOT) 16 0 - 40 U/L 05/29/2025 7:01 AM EDT [facility] ALT (SGPT) 8 0 - 40 U/L 05/29/2025 7:01 AM EDT [facility] Blood PERIPHERAL BLOOD SPECIMEN / Unknown Venipuncture / Unknown 05/29/2025 6:20 AM EDT 05/29/2025 6:27 AM EDT Rabia Velasco MD LAB BLOOD ORDERABLES Final Resul t [facility] [address] [place] [address], [place] * (ABNORMAL) POCT Glucose (05/29/2025 5:38 AM EDT) Glucose, POC 122(H) 70 - 100 mg/dL 05/29/2025 10:00 AM EDT [facility] Comment: @Serial Yrsqbr=[id number] @Technical Sales Specialist [id number] Blood 05/29/2025 5:38 AM EDT 05/29/2025 10:00 AM EDT us Rabia Velasco MD POCT ORDERABLES - DEVICE Final R esult Performing Organization Address [facility] [place] [address], [place] * (ABNORMAL) POCT Glucose (05/28/2025 11:56 PM EDT) Glucose, POC 171(H) 70 - 100 mg/dL 05/29/2025 12:14 AM EDT [facility] Comment: @Serial Dryzqg=[id number] @Technical Sales Specialist GI=[id number] Blood 05/28/2025 11:5 6 PM EDT 05/29/2025 12:14 AM EDT us Rabia Velasco MD POCT ORDERABLES - DEVICE Final R esult Performing Organization Address [facility] [place] [address], [place] * (ABNORMAL) POCT Glucose (05/28/2025 5:50 PM EDT) Glucose, POC 172(H) 70 - 100 mg/dL 05/28/2025 5:54 PM EDT [facility] Comment: @Serial Zcowil=[id number] @Technical Sales Specialist [id number] Blood 05/28/2025 5:50 PM EDT 05/28/2025 5:54 PM EDT us Rabia Velasco MD POCT ORDERABLES - DEVICE Final R esult Performing Organization Address City/[facility]/ZIP Co de Phone Number [facility] [address] [place] [address], [place] * (ABNORMAL) POCT Glucose (05/28/2025 12:23 PM EDT) Glucose, POC 191(H) 70 - 100 mg/dL 05/28/2025 12:24 PM EDT [facility] Comment: @Serial Aycpxu=[id number] @Technical Sales Specialist [id number] Blood 05/28/2025 12:2 3 PM EDT 05/28/2025 12:24 PM EDT Rabia Velasco MD POCT ORDERABLES - DEVICE Final R esult [facility] [address] [place] [address], [place] * XR Abdomen Portable (05/28/2025 11:10 AM EDT) Anatomical Region Laterality Modality Abdomen Digital Radiogra phy 05/28/2025 5:14 PM EDT Impressions 05/28/2025 7:42 PM EDT No significant stool burden. BY ELECTRONICALLY SIGNING THIS REPORT, I THE ATTENDING PHYSICIAN ATTEST THAT I HAVE REVIEWED THE IMAGES FOR THE ABOVE PROCEDURE(S) AND AGREE WITH THE FINDINGS DOCUMENTED. Miguelito Serrano MD, electronically signed on May 28 2025 07:42PM Narrative 05/28/2025 7:42 PM EDT INDICATION: assess stool burden; TECHNIQUE: Portable supine abdominal radiograph was obtained. COMPARISON: XR Abdomen dated 12 May 2025. FINDINGS: Large bowel dilation, measuring up to 7.7 cm diameter. No significant stool volume. Contrast from prior CT in the bladder. Supine assessment limits detection for free air; there is no gross pneumoperitoneum. G-tube marker noted. Osseous structures are unremarkable. Status post lower lumbar spine fusion. There are no unexplained soft tissue calcifications or radiopaque foreign bodies. Procedure Note Casper Serrano MD - 05/28/2025 INDICATION: assess stool burden; TECHNIQUE: Portable supine abdominal radiograph was obtained. COMPARISON: XR Abdomen dated 12 May 2025. FINDINGS: Large bowel dilation, measuring up to 7.7 cm diameter. No significantstool volume. Contrast from prior CT in the bladder. Supine assessment limits detection for free air; there is no grosspneumoperitoneum. G-tube marker noted. Osseous structures are unremarkable. Status post lower lumbar spinefusion. There are no unexplained soft tissue calcifications or radiopaque foreignbodies. IMPRESSION: No significant stool burden. BY ELECTRONICALLY SIGNING THIS REPORT, I THE ATTENDING PHYSICIAN ATTESTTHAT I HAVE REVIEWED THE IMAGES FOR THE ABOVE PROCEDURE(S) AND AGREE WITHTHE FINDINGS DOCUMENTED. Miguelito Serrano MD, electronically signed on May 28 2025 07:42PM us Rabia Velasco MD IMG DIAGNOSTIC IMAGING ORDERABLE S Final Result * (ABNORMAL) C-Reactive Protein (05/28/2025 5:53 AM EDT) [facility] C-Reactive Protein (CRP) >300.0(H) 0.0 - 5.0 mg/L 05/28/2025 12:39 PM EDT [facility] Blood PERIPHERAL BLOOD SPECIMEN / Unknown Venipuncture / Unknown 05/28/2025 5:53 AM EDT 05/28/2025 6:01 AM EDT us Rabia Velasco MD LAB BLOOD ORDERABLES Final Resul t [facility] [address] [place] [address], [place] * (ABNORMAL) POCT Glucose (05/28/2025 5:53 AM EDT) [facility] Glucose, POC 179(H) 70 - 100 mg/dL 05/28/2025 5:54 AM EDT [facility] Comment: @Serial [id number] @Technical Sales Specialist [id number]=[id number] Blood 05/28/2025 5:53 AM EDT 05/28/2025 5:54 AM EDT us Rabia Velasco MD POCT ORDERABLES - DEVICE Final R esult [facility] [address] [facility] [place] [address], [place] * Phosphorus (05/28/2025 5:53 AM EDT) [facility] Phosphorus 3.7 2.7 - 4.5 mg/dL 05/28/2025 6:37 AM EDT [facility] Blood PERIPHERAL BLOOD SPECIMEN / Unknown Venipuncture / Unknown 05/28/2025 5:53 AM EDT 05/28/2025 6:01 AM EDT us Rabia Velasco MD LAB BLOOD ORDERABLES Final Resul t [facility] [address] [place] [address], [place] * Magnesium (05/28/2025 5:53 AM EDT) [facility] Magnesium, Blood 2.5 1.6 - 2.6 mg/dL 05/28/2025 6:37 AM EDT [facility] Blood PERIPHERAL BLOOD SPECIMEN / Unknown Venipuncture / Unknown 05/28/2025 5:53 AM EDT 05/28/2025 6:01 AM EDT us Rabia Velasco MD LAB BLOOD ORDERABLES Final Resul t Performing Organization Address City/[facility]/ZIP Co de Phone Number [facility] [address] [place] [address], * (ABNORMAL) Basic Metabolic Panel (05/28/2025 5:53 AM EDT) [facility] Sodium 145 135 - 147 mmol/L 05/28/2025 6:37 AM EDT [facility] Potassium 4.3 3.5 - 5.4 mmol/L 05/28/2025 6:37 AM EDT [facility] Chloride 106 96 - 108 mmol/L 05/28/2025 6:37 AM EDT [facility] Total CO2/Bicarbonat e 27 22 - 32 mmol/L 05/28/2025 6:37 AM EDT [facility] Anion Gap 12 10 - 18 mmol/L 05/28/2025 6:37 AM EDT [facility] BUN 36(H) 6 - 20 mg/dL 05/28/2025 6:37 AM EDT [facility] Creatinine, Blood 1.00 0.50 - 1.20 mg/dL 05/28/2025 6:37 AM EDT [facility] Glucose, Blood 174(H) 70 - 100 mg/dL 05/28/2025 6:37 AM EDT [facility] Calcium 9.1 8.4 - 10.3 mg/dL 05/28/2025 6:37 AM EDT [facility] Blood PERIPHERAL BLOOD SPECIMEN / Unknown Venipuncture / Unknown 05/28/2025 5:53 AM EDT 05/28/2025 6:01 AM EDT us Rabia Velasco MD LAB BLOOD ORDERABLES Final Resul t [facility] [address] [place] [address], * (ABNORMAL) Hepatic Function Panel (05/28/2025 5:53 AM EDT) Total Protein 6.4 6.4 - 8.3 g/dL 05/28/2025 6:37 AM EDT [facility] Albumin, Blood 2.6(L) 3.5 - 5.2 g/dL 05/28/2025 6:37 AM EDT [facility] Globulin Result 3.8 2.0 - 4.0 g/dL 05/28/2025 6:37 AM EDT [facility] Total Bilirubin 0.2 0.0 - 1.5 mg/dL 05/28/2025 6:37 AM EDT [facility] Direct Bilirubin 0.1 0.0 - 0.3 mg/dL 05/28/2025 6:37 AM EDT [facility] Alkaline Phosphatase 103 40 - 130 U/L 05/28/2025 6:37 AM EDT [facility] AST (SGOT) 13 0 - 40 U/L 05/28/2025 6:37 AM EDT [facility] ALT (SGPT) 7 0 - 40 U/L 05/28/2025 6:37 AM EDT [facility] Blood PERIPHERAL BLOOD SPECIMEN / Unknown Venipuncture / Unknown 05/28/2025 5:53 AM EDT 05/28/2025 6:01 AM EDT us Rabia Velasco MD LAB BLOOD ORDERABLES Final Resul t [facility] [address] [place] [address], [place] * (ABNORMAL) Manual Diff and Morph (05/28/2025 5:52 AM EDT) Neutrophil 90(H) 34 - 71 % 05/28/2025 7:06 AM EDT [facility] Lymphocyte 1(L) 19 - 53 % 05/28/2025 7:06 AM EDT [facility] Monocyte 9 5 - 13 % 05/28/2025 7:06 AM EDT [facility] Eosinophil 0(L) 1 - 7 % 05/28/2025 7:06 AM EDT [facility] Basophil 0 0 - 1 % 05/28/2025 7:06 AM EDT [facility] Absolute Neutrophil Count 12.87(H) 1.60 - 6.10 K/uL 05/28/2025 7:06 AM EDT [facility] Absolute Lymphocyte Count 0.14(L) 1.20 - 3.70 K/uL 05/28/2025 7:06 AM EDT [facility] Absolute Monocyte Count 1.29(H) 0.20 - 0.80 K/uL 05/28/2025 7:06 AM EDT [facility] Absolute Eosinophil Count 0.00(L) 0.04 - 0.54 K/uL 05/28/2025 7:06 AM EDT [facility] Absolute Basophil Count 0.00(L) 0.01 - 0.08 K/uL 05/28/2025 7:06 AM EDT [facility] Platelet Est Normal Normal 05/28/2025 7:06 AM EDT [facility] ANISOCYTOSIS 1+ 05/28/2025 7:06 AM EDT [facility] Poikilocytosis 1+ 05/28/2025 7:06 AM EDT [facility] OVALOCYTES 1+ 05/28/2025 7:06 AM EDT [facility] SPHEROCYTES 1+ 05/28/2025 7:06 AM EDT [facility] TEAR DROP CELLS 1+ 7:06 AM EDT [facility] Total Cells Counted 100 05/28/2025 7:06 AM EDT [facility] Blood PERIPHERAL BLOOD SPECIMEN / Unknown Venipuncture / Unknown 05/28/2025 5:52 AM EDT 05/28/2025 6:01 AM EDT us Rabia Velasco MD LAB BLOOD ORDERABLES Final Resul t [facility] [address] [place] [address], * (ABNORMAL) CBC and Differential (05/28/2025 5:52 AM EDT) WBC 14.30(H) 4.00 - 10.00 K/uL 05/28/2025 7:07 AM EDT [facility] RBC 3.83(L) 4.60 - 6.10 M/uL 05/28/2025 7:07 AM EDT [facility] Hemoglobin 11.7(L) 13.7 - 17.5 g/dL 05/28/2025 7:07 AM EDT [facility] Hematocrit 37.0(L) 40.0 - 51.0 % 05/28/2025 7:07 AM EDT [facility] MCV 97 82 - 98 fL 05/28/2025 7:07 AM EDT [facility] MCH 30.5 26.0 - 32.0 pg 05/28/2025 7:07 AM EDT [facility] MCHC 31.6(L) 32.0 - 37.0 g/dL 05/28/2025 7:07 AM EDT [facility] RDW 13.3 10.5 - 15.5 % 05/28/2025 7:07 AM EDT [facility] RDW-SD 47.6(H) 35.1 - 46.3 fL 05/28/2025 7:07 AM EDT [facility] Platelet Count 319 150 - 400 K/uL 05/28/2025 7:07 AM EDT [facility] Blood PERIPHERAL BLOOD SPECIMEN / Unknown Venipuncture / Unknown 05/28/2025 5:52 AM EDT 05/28/2025 6:01 AM EDT Rabia Velasco MD LAB BLOOD ORDERABLES Final Resul t Performing Organization Address City/[facility]/ZIP Co de Phone Number [facility] [address] [place] [address], * (ABNORMAL) POCT Glucose (05/28/2025 12:00 AM EDT) Glucose, POC 145(H) 70 - 100 mg/dL 05/28/2025 12:06 AM EDT [facility] Comment: @Serial Ltrohp=[id number] @Technical Sales Specialist YR=[id number] Blood 05/28/2025 12:0 0 AM EDT 05/28/2025 12:06 AM EDT Rabia Velasco MD POCT ORDERABLES - DEVICE Final R esult Performing Organization Address City/[facility]/ZIP Co de Phone Number [facility] [address] [place] [address], * ECG 12 lead (2025 9:30 PM EDT) Ventricular Heart Rate 129 BPM EKG BUR MUSE Atrial Heart Rate 129 BPM EKG B[facility] MUSE LA Interval 138 ms EKG BUR MUSE QRSD Interval 90 ms EKG BUR MUSE QT Interval 320 ms EKG BUR MUSE QTC Interval 468 ms EKG BUR MUSE P Mathews 56 degrees EKG BUR MUSE R Mathews -44 degrees EKG BUR MUSE T Wave Mathews 36 degrees EKG BUR MUSE 2025 9:25 PM EDT 05/28/2025 9:10 PM EDT Narrative EKG BUR MUSE - 05/28/2025 9:10 PM EDT Sinus tachycardia Left axis deviation Borderline ECG When compared with ECG of 25 May 2025 no significant change Procedure Note Mervat Wilson MD - 05/28/2025 Sinus tachycardia Left axis deviation Borderline ECG When compared with ECG of 25 May 2025 no significant change us Rabia Velasco MD ECG ORDERABLES Final Result EKG KATH [address] [address] * CT Angiogram Chest PE : Arteriogram (2025 9:06 PM EDT) Anatomical Region Laterality Modality Chest Computed Tomogra phy 2025 9:37 PM EDT Impressions 05/28/2025 1:10 PM EDT 1. No evidence of pulmonary embolism or acute aortic abnormality. 2. Near complete mucous plugging of bilateral lower lobe bronchi. Bilateral multifocal areas of peribronchial heterogeneous consolidative opacities most pronounced in the left upper lobe and dense consolidation in the lower lobes with air bronchogram, consistent with multifocal aspiration and/ or pneumonia 3. Mildly enlarged right hilar and scattered prominent left hilar and mediastinal lymph nodes, likely reactive. BY ELECTRONICALLY SIGNING THIS REPORT, I THE ATTENDING PHYSICIAN ATTEST THAT I HAVE REVIEWED THE IMAGES FOR THE ABOVE PROCEDURE(S) AND AGREE WITH THE FINDINGS DOCUMENTED. James Champion MD, electronically signed on May 28 2025 01:10PM Narrative 05/28/2025 1:10 PM EDT EXAMINATION: CTA CHEST PE INDICATION: new O2 demand; TECHNIQUE: Contiguous axial images were obtained through the chest following administration of intravenous contrast. Coronal, sagittal and MIP reformats were performed. DOSE: Acquisition sequence: 1) Spiral Acquisition 1.1 s, 46.2 cm; CTDIvol = 6.2 mGy (Body) DLP = 285.9 mGy- cm 2) Stationary Acquisition 0.4 s, 0.5 cm; CTDIvol = 1.7 mGy (Body) DLP = 0.9 mGy-cm 3) Stationary Acquisition 1.7 s, 0.5 cm; CTDIvol = 10.3 mGy (Body) DLP = 5.2 mGy-cm Total DLP (Body) = 301 mGy-cm COMPARISON: No prior studies for comparison. FINDINGS: NECK, THORACIC INLET, AXILLAE, CHEST WALL: The thyroid is unremarkable. There is no supraclavicular or axillary lymphadenopathy by CT size criteria. Mild bilateral symmetric gynecomastia. MEDIASTINUM: Scattered prominent mediastinal lymph nodes measuring up to 8.4 mm in right paratracheal region (301:72). No mediastinal mass is seen. The esophagus is patulous, which can be seen in the setting of dysmotility. IRVIN: Mildly enlarged/prominent right hilar lymphnodes measuring upto 12mm and left hilar lymphnodes measuring tp to 8mm . . HEART/PERICARDIUM: The heart is within normal limits in size. Moderate calcification of left anterior descending, rest are mild. No pericardial effusion is seen. PLEURA: There is no evidence of pleural effusion or pneumothorax. LUNGS: 1. PARENCHYMA: Bilateral multifocal areas of peribronchial heterogeneous consolidative opacities most pronounced in the left upper lobe and lower lobe dense consolidations with air bronchograms. 2. AIRWAYS: Multifocal areas of mucous plugging in the lower lobes. 3. VESSELS: Conventional 3-vessel aortic arch is noted. The thoracic aorta and pulmonary arteries are normal in caliber. The pulmonary vasculature is well-opacified to the subsegmental level, with no evidence of filling defects suggestive of pulmonary emboli. BONES: Mild degenerative osteophytes in multilevel thoracic vertebrae. No findings in the chest cage to suggest infection, malignancy or recent trauma. 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 UPPER ABDOMEN: The visualized portion of the upper abdomen is unremarkable. LINES AND TUBES: Gastrostomy tube in place. Procedure Note Cassi Champion MD - 05/28/2025 EXAMINATION: CTA CHEST PE INDICATION: new O2 demand; TECHNIQUE: Contiguous axial images were obtained through the chest followingadministration of intravenous contrast. Coronal, sagittal and MIPreformats were performed. DOSE: Acquisition sequence: 1) Spiral Acquisition 1.1 s, 46.2 cm; CTDIvol = 6.2 mGy (Body) DLP =285.9 mGy-cm 2) Stationary Acquisition 0.4 s, 0.5 cm; CTDIvol = 1.7 mGy (Body) DLP =0.9 mGy- cm 3) Stationary Acquisition 1.7 s, 0.5 cm; CTDIvol = 10.3 mGy (Body) DLP= 5.2 mGy- cm Total DLP (Body) = 301 mGy-cm COMPARISON: No prior studies for comparison. FINDINGS: NECK, THORACIC INLET, AXILLAE, CHEST WALL: The thyroid is unremarkable.There is no supraclavicular or axillary lymphadenopathy by CT sizecriteria. Mild bilateral symmetric gynecomastia. MEDIASTINUM: Scattered prominent mediastinal lymph nodes measuring up to8.4 mm in right paratracheal region (301:72). No mediastinal mass isseen. The esophagus is patulous, which can be seen in the setting ofdysmotility. IRVIN: Mildly enlarged/prominent right hilar lymphnodes measuring upto 12mmand left hilar lymphnodes measuring tp to 8mm . . HEART/PERICARDIUM: The heart is within normal limits in size. Moderatecalcification of left anterior descending, rest are mild. No pericardialeffusion is seen. PLEURA: There is no evidence of pleural effusion or pneumothorax. LUNGS: 1. PARENCHYMA: Bilateral multifocal areas of peribronchial heterogeneousconsolidative opacities most pronounced in the left upper lobe and lowerlobe dense consolidations with air bronchograms. 2. AIRWAYS: Multifocal areas of mucous plugging in the lower lobes. 3. VESSELS: Conventional 3-vessel aortic arch is noted. The thoracicaorta and pulmonary arteries are normal in caliber. The pulmonaryvasculature is well- opacified to the subsegmental level, with no evidenceof filling defects suggestive of pulmonary emboli. BONES: Mild degenerative osteophytes in multilevel thoracic vertebrae. Nofindings in the chest cage to suggest infection, malignancy or recenttrauma. 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 UPPER ABDOMEN: The visualized portion of the upper abdomen isunremarkable. LINES AND TUBES: Gastrostomy tube in place. IMPRESSION: 1. No evidence of pulmonary embolism or acute aortic abnormality. 2. Near complete mucous plugging of bilateral lower lobe bronchi.Bilateral multifocal areas of peribronchial heterogeneous consolidativeopacities most pronounced in the left upper lobe and dense consolidationin the lower lobes with air bronchogram, consistent with multifocal aspiration and/ or pneumonia 3. Mildly enlarged right hilar and scattered prominent left hilar andmediastinal lymph nodes, likely reactive. BY ELECTRONICALLY SIGNING THIS REPORT, I THE ATTENDING PHYSICIAN ATTESTTHAT I HAVE REVIEWED THE IMAGES FOR THE ABOVE PROCEDURE(S) AND AGREE WITHTHE FINDINGS DOCUMENTED. James Champion MD, electronically signed on May 28 2025 01:10PM Rabia Velasco MD IMG CT ORDERABLES Final Result * CT Head Without Contrast (2025 8:54 PM EDT) Anatomical Region Laterality Modality Head Computed Tomogra phy 2025 10:2 8 PM EDT Impressions 2025 10:34 PM EDT No acute intracranial abnormality. BY ELECTRONICALLY SIGNING THIS REPORT, I THE ATTENDING PHYSICIAN ATTEST THAT I HAVE REVIEWED THE IMAGES FOR THE ABOVE PROCEDURE(S) AND AGREE WITH THE FINDINGS DOCUMENTED. MD Cassi Correa MD, electronically signed on 2025 10:34PM Narrative 2025 10:34 PM EDT EXAMINATION: CT HEAD WO CONTRAST INDICATION: new altered mental status; TECHNIQUE: Contiguous axial images from skullbase to vertex were obtained without intravenous contrast. Coronal and sagittal reformations and bone algorithms reconstructions were also performed DOSE: Acquisition sequence: 1) Sequenced Acquisition 5.0 s, 20.0 cm; CTDIvol = 47.7 mGy (Head) DLP = 954.0 mGy-cm Total DLP (Body) = 3 mGy-cm Total DLP (Head) = 954 mGy-cm COMPARISON: CT head dated 22 April 2025. FINDINGS: There is no evidence of acute large vascular territory infarction, intra-axial or extra-axial hemorrhage, edema, or mass effect. The basal cisterns are patent. The ventricles and sulci are prominent consistent with involutional changes. No acute fracture. Mild mucosal thickening of the ethmoid air cells. The remaining paranasal sinuses, mastoid air cells, and middle ear cavities are well aerated. The orbits are unremarkable. Procedure Note Cassi Champion MD - 2025 EXAMINATION: CT HEAD WO CONTRAST INDICATION: new altered mental status; TECHNIQUE: Contiguous axial images from skullbase to vertex were obtained withoutintravenous contrast. Coronal and sagittal reformations and bonealgorithms reconstructions were also performed DOSE: Acquisition sequence: 1) Sequenced Acquisition 5.0 s, 20.0 cm; CTDIvol = 47.7 mGy (Head) DLP= 954.0 mGy-cm Total DLP (Body) = 3 mGy-cm Total DLP (Head) = 954 mGy-cm COMPARISON: CT head dated 22 April 2025. FINDINGS: There is no evidence of acute large vascular territory infarction,intra-axial or extra-axial hemorrhage, edema, or mass effect. The basalcisterns are patent. The ventricles and sulci are prominent consistentwith involutional changes. No acute fracture. Mild mucosal thickening of the ethmoid air cells. Theremaining paranasal sinuses, mastoid air cells, and middle ear cavitiesare well aerated. The orbits are unremarkable. IMPRESSION: No acute intracranial abnormality. BY ELECTRONICALLY SIGNING THIS REPORT, I THE ATTENDING PHYSICIAN ATTESTTHAT I HAVE REVIEWED THE IMAGES FOR THE ABOVE PROCEDURE(S) AND AGREE WITHTHE FINDINGS DOCUMENTED. MD Cassi Correa MD, electronically signed on 2025 10:34PM us Rabia Velasco MD IMG CT ORDERABLES Final Result * Lactic Acid with 3 Hour Reflex (2025 8:28 PM EDT) Lactic Acid 1.9 0.5 - 2.0 mmol/L 2025 8:34 PM EDT [facility] Blood PERIPHERAL BLOOD SPECIMEN / Unknown Venipuncture / Unknown 2025 8:28 PM EDT 2025 8:31 PM EDT us Rabia Velasco MD LAB BLOOD ORDERABLES Final Resul t [facility] [address] [place] [address], [place] * (ABNORMAL) Blood Gas, Venous (2025 8:28 PM EDT) pH, Venous 7.47(H) 7.35 - 7.45 2025 8:35 PM EDT [facility] pCO2, Venous 41 35 - 45 mmHg 2025 8:35 PM EDT [facility] pO2, Venous 82 80 - 105 mmHg 2025 8:35 PM EDT [facility] HCO3, Venous 30 21 - 30 mmol/L 2025 8:35 PM EDT [facility] Carboxyhemoglo bin, VBG 1.6(H) 0.5 - 1.5 % 2025 8:35 PM EDT [facility] Methemoglobin, VBG 1.0(H) 0.2 - 0.6 % 2025 8:35 PM EDT [facility] Blood Venipuncture / Unknown 2025 8:28 PM EDT 2025 8:31 PM EDT us Rabia Velasco MD LAB BLOOD ORDERABLES Final Resul t [facility] [address] [place] [address], [place] * Phosphorus (2025 8:23 PM EDT) Pathologist [facility] Phosphorus 3.1 2.7 - 4.5 mg/dL 2025 9:04 PM EDT [facility] Blood PERIPHERAL BLOOD SPECIMEN / Unknown Venipuncture / Unknown 2025 8:23 PM EDT 2025 8:27 PM EDT us Rabia Velasco MD LAB BLOOD ORDERABLES Final Resul t [facility] [address] [place] [address], [place] * Magnesium (2025 8:23 PM EDT) Magnesium, Blood 2.3 1.6 - 2.6 mg/dL 2025 9:04 PM EDT [facility] Blood PERIPHERAL BLOOD SPECIMEN / Unknown Venipuncture / Unknown 2025 8:23 PM EDT 2025 8:27 PM EDT us Rabia Velasco MD LAB BLOOD ORDERABLES Final Resul t [facility] [address] [place] [address], [place] * (ABNORMAL) Comprehensive Metabolic Panel (2025 8:23 PM EDT) [facility] Sodium 145 135 - 147 mmol/L 2025 9:04 PM EDT [facility] Potassium 4.0 3.5 - 5.4 mmol/L 2025 9:04 PM EDT [facility] Chloride 106 96 - 108 mmol/L 2025 9:04 PM EDT [facility] Total CO2/Bicarbonate 27 22 - 32 mmol/L 2025 9:04 PM EDT [facility] Anion Gap 12 10 - 18 mmol/L 2025 9:04 PM EDT [facility] BUN 36(H) 6 - 20 mg/dL 2025 9:04 PM EDT [facility] Creatinine, Blood 0.90 0.50 - 1.20 mg/dL 2025 9:04 PM EDT [facility] Glucose, Blood 168(H) 70 - 100 mg/dL 2025 9:04 PM EDT [facility] Calcium 9.1 8.4 - 10.3 mg/dL 2025 9:04 PM EDT [facility] Total Protein 6.5 6.4 - 8.3 g/dL 2025 9:04 PM EDT [facility] Albumin, Blood 2.9(L) 3.5 - 5.2 g/dL 2025 9:04 PM EDT [facility] Globulin Result 3.6 2.0 - 4.0 g/dL 2025 9:04 PM EDT [facility] AST (SGOT) 15 0 - 40 U/L 2025 9:04 PM EDT [facility] ALT (SGPT) 8 0 - 40 U/L 2025 9:04 PM EDT [facility] Alkaline Phosphatase 125 40 - 130 U/L 2025 9:04 PM EDT [facility] Total Bilirubin 0.2 0.0 - 1.5 mg/dL 2025 9:04 PM EDT [facility] Blood PERIPHERAL BLOOD SPECIMEN / Unknown Venipuncture / Unknown 2025 8:23 PM EDT 2025 8:27 PM EDT us Rabia Velasco MD LAB BLOOD ORDERABLES Final Resul t [facility] [address] [place] [address], * (ABNORMAL) CBC (2025 8:23 PM EDT) WBC 13.35(H) 4.00 - 10.00 K/uL 2025 8:40 PM EDT [facility] RBC 4.25(L) 4.60 - 6.10 M/uL 2025 8:40 PM EDT [facility] Hemoglobin 12.8(L) 13.7 - 17.5 g/dL 2025 8:40 PM EDT [facility] Hematocrit 40.6 40.0 - 51.0 % 2025 8:40 PM EDT [facility] MCV 96 82 - 98 fL 2025 8:40 PM EDT [facility] MCH 30.1 26.0 - 32.0 pg 2025 8:40 PM EDT [facility] MCHC 31.5(L) 32.0 - 37.0 g/dL 2025 8:40 PM EDT [facility] RDW 13.2 10.5 - 15.5 % 2025 8:40 PM EDT [facility] RDW-SD 46.8(H) 35.1 - 46.3 fL 2025 8:40 PM EDT [facility] Platelet Count 328 150 - 400 K/uL 2025 8:40 PM EDT [facility] Nucleated RBC 0 <=0 #/100 WBC 2025 8:40 PM EDT [facility] Blood PERIPHERAL BLOOD SPECIMEN / Unknown Venipuncture / Unknown 2025 8:23 PM EDT 2025 8:27 PM EDT us Rabia Velasco MD LAB BLOOD ORDERABLES Final Resul t [facility] [address] [place] [address], [place] * Culture, Respiratory (Incl Gram) (2025 5:55 PM EDT) Respiratory Culture Heavy growth commensal respiratory nuvia STEPHEN 05/31/2025 2:23 PM EDT [facility] Smear,Gram Stain >25 PMNs and <10 epithelial cells/100X field 05/31/2025 2:23 PM EDT [facility] Smear,Gram Stain 4+ Multiple Organisms Present Consistent with Oropharyngeal Nuvia 05/31/2025 2:23 PM EDT [facility] Respiratory SPUTUM SPECIMEN OBTAINED BY SPUTUM INDUCTION / Unknown Collection / Unknown 2025 5:55 PM EDT 2025 6:16 PM EDT us Rabia Velasco MD MICROBIOLOGY - GENERAL ORDERABLE S Final Result [facility] [address] [place] [address], [place] * (ABNORMAL) POCT Glucose (2025 5:49 PM EDT) Glucose, POC 168(H) 70 - 100 mg/dL 2025 5:56 PM EDT [facility] Comment: @Serial Ewcnll=[id number] @Technical Sales Specialist [id number] Blood 2025 5:49 PM EDT 2025 5:56 PM EDT us Rabia Velasco MD POCT ORDERABLES - DEVICE Final R esult Performing Organization Address [facility] [place] [address], * Nasal MRSA/SA By PCR (2025 3:35 PM EDT) MRSA PCR Negative Negative 05/28/2025 10:52 AM EDT [facility] S. aureus PCR Negative Negative 05/28/2025 10:52 AM EDT [facility] Swab BOTH ANTERIOR NARES / Unknown 2025 3:35 PM EDT 2025 4:00 PM EDT Narrative [facility] - 05/28/2025 10:52 AM EDT Test performed by GeneXpert real-time PCR. us Rabia Velasco MD MICROBIOLOGY - GENERAL ORDERABLE S Final Result Performing Organization Address [facility] [place] [address], [place] * (ABNORMAL) POCT Glucose (2025 2:37 PM EDT) Glucose, POC 196(H) 70 - 100 mg/dL 2025 2:38 PM EDT [facility] Comment: @Serial Zftbjp=[id number] @Technical Sales Specialist PP=[id number] Blood 2025 2:37 PM EDT 2025 2:38 PM EDT us Rabia Velasco MD POCT ORDERABLES - DEVICE Final R esult Performing Organization Address [facility] [place] [address], [place] * XR Chest 1 VW Portable (2025 11:34 AM EDT) Anatomical Region Laterality Modality Chest Digital Radiogra phy 2025 1:58 PM EDT Impressions 2025 3:19 PM EDT Worsening left lower lobe opacification highly concerning for pneumonia. BY ELECTRONICALLY SIGNING THIS REPORT, I THE ATTENDING PHYSICIAN ATTEST THAT I HAVE REVIEWED THE IMAGES FOR THE ABOVE PROCEDURE(S) AND AGREE WITH THE FINDINGS DOCUMENTED. Gigi Doe MD, electronically signed on 2025 03:19PM Narrative 2025 3:19 PM EDT EXAMINATION: XR CHEST 1 VW PORTABLE INDICATION: worsening hypoxemia and aspiration; TECHNIQUE: AP radiographs of the chest COMPARISON: Radiographs the chest from May 22 and 05/24 FINDINGS: Left lower lobe retrocardiac consolidation appears worsened and is now silhouetting the descending aorta compared to radiographs from 3 days. This is highly concerning for LLL pneumonia. The lungs are otherwise clear without evidence effusion or pneumothorax. The cardiomediastinal silhouette is normal and similar to radiographs from 3 days prior. Procedure Note Austin Doe MD - 2025 EXAMINATION: XR CHEST 1 VW PORTABLE INDICATION: worsening hypoxemia and aspiration; TECHNIQUE: AP radiographs of the chest COMPARISON: Radiographs the chest from May 22 and 05/24 FINDINGS: Left lower lobe retrocardiac consolidation appears worsened and is nowsilhouetting the descending aorta compared to radiographs from 3 days.This is highly concerning for LLL pneumonia. The lungs are otherwiseclear without evidence effusion or pneumothorax. The cardiomediastinal silhouette is normal and similar toradiographs from 3 days prior. IMPRESSION: Worsening left lower lobe opacification highly concerning for pneumonia. BY ELECTRONICALLY SIGNING THIS REPORT, I THE ATTENDING PHYSICIAN ATTESTTHAT I HAVE REVIEWED THE IMAGES FOR THE ABOVE PROCEDURE(S) AND AGREE WITHTHE FINDINGS DOCUMENTED. Gigi Doe MD, electronically signed on 2025 03:19PM us Rabia Velasco MD IMG DIAGNOSTIC IMAGING ORDERABLE S Final Result * (ABNORMAL) Manual Diff and Morph (2025 6:34 AM EDT) Neutrophil 84(H) 34 - 71 % 2025 9:23 AM EDT [facility] Lymphocyte 6(L) 19 - 53 % 2025 9:23 AM EDT [facility] Monocyte 8 5 - 13 % 2025 9:23 AM EDT [facility] Eosinophil 0(L) 1 - 7 % 2025 9:23 AM EDT [facility] Basophil 0 0 - 1 % 2025 9:23 AM EDT [facility] Band 2 0 - 5 % 2025 9:23 AM EDT [facility] Absolute Neutrophil Count 11.20(H) 1.60 - 6.10 K/uL 2025 9:23 AM EDT [facility] Absolute Lymphocyte Count 0.78(L) 1.20 - 3.70 K/uL 2025 9:23 AM EDT [facility] Absolute Monocyte Count 1.04(H) 0.20 - 0.80 K/uL 2025 9:23 AM EDT [facility] Absolute Eosinophil Count 0.00(L) 0.04 - 0.54 K/uL 2025 9:23 AM EDT [facility] Absolute Basophil Count 0.00(L) 0.01 - 0.08 K/uL 2025 9:23 AM EDT [facility] Platelet Est Normal Normal 2025 9:23 AM EDT [facility] Total Cells Counted 100 2025 9:23 AM EDT [facility] Blood PERIPHERAL BLOOD SPECIMEN / Unknown Venipuncture / Unknown 2025 6:34 AM EDT 2025 7:45 AM EDT us Rabia Velasco MD LAB BLOOD ORDERABLES Final Resul t [facility] [address] [place] [address], [place] * Phosphorus (2025 6:34 AM EDT) Phosphorus 2.7 2.7 - 4.5 mg/dL 2025 8:23 AM EDT [facility] Blood PERIPHERAL BLOOD SPECIMEN / Unknown Venipuncture / Unknown 2025 6:34 AM EDT 2025 7:44 AM EDT us Rabia Velasco MD LAB BLOOD ORDERABLES Final Resul t [facility] [address] [place] [address], * Magnesium (2025 6:34 AM EDT) Magnesium, Blood 2.4 1.6 - 2.6 mg/dL 2025 8:23 AM EDT [facility] Blood PERIPHERAL BLOOD SPECIMEN / Unknown Venipuncture / Unknown 2025 6:34 AM EDT 2025 7:44 AM EDT us Rabia Velasco MD LAB BLOOD ORDERABLES Final Resul t Performing Organization Address City/[facility]/ZIP Co de Phone Number [facility] [address] [place] [address], * (ABNORMAL) Basic Metabolic Panel (2025 6:34 AM EDT) Sodium 144 135 - 147 mmol/L 2025 8:23 AM EDT [facility] Potassium 3.7 3.5 - 5.4 mmol/L 2025 8:23 AM EDT [facility] Chloride 103 96 - 108 mmol/L 2025 8:23 AM EDT [facility] Total CO2/Bicarbonat e 28 22 - 32 mmol/L 2025 8:23 AM EDT [facility] Anion Gap 13 10 - 18 mmol/L 2025 8:23 AM EDT [facility] BUN 39(H) 6 - 20 mg/dL 2025 8:23 AM EDT [facility] Creatinine, Blood 1.00 0.50 - 1.20 mg/dL 2025 8:23 AM EDT [facility] Glucose, Blood 238(H) 70 - 100 mg/dL 2025 8:23 AM EDT [facility] Calcium 9.4 8.4 - 10.3 mg/dL 2025 8:23 AM EDT [facility] Blood PERIPHERAL BLOOD SPECIMEN / Unknown Venipuncture / Unknown 2025 6:34 AM EDT 2025 7:44 AM EDT us Rabia Velasco MD LAB BLOOD ORDERABLES Final Resul t [facility] [address] [place] [address], * (ABNORMAL) CBC and Differential (2025 6:34 AM EDT) WBC 13.02(H) 4.00 - 10.00 K/uL 2025 9:23 AM EDT [facility] RBC 4.13(L) 4.60 - 6.10 M/uL 2025 9:23 AM EDT [facility] Hemoglobin 12.7(L) 13.7 - 17.5 g/dL 2025 9:23 AM EDT [facility] Hematocrit 39.8(L) 40.0 - 51.0 % 2025 9:23 AM EDT [facility] MCV 96 82 - 98 fL 2025 9:23 AM EDT [facility] MCH 30.8 26.0 - 32.0 pg 2025 9:23 AM EDT [facility] MCHC 31.9(L) 32.0 - 37.0 g/dL 2025 9:23 AM EDT [facility] RDW 13.1 10.5 - 15.5 % 2025 9:23 AM EDT [facility] RDW-SD 46.7(H) 35.1 - 46.3 fL 2025 9:23 AM EDT [facility] Platelet Count 343 150 - 400 K/uL 2025 9:23 AM EDT [facility] Blood PERIPHERAL BLOOD SPECIMEN / Unknown Venipuncture / Unknown 2025 6:34 AM EDT 2025 7:45 AM EDT Rabia Velasco MD LAB BLOOD ORDERABLES Final Resul t [facility] [address] [place] [address], [place] * (ABNORMAL) Hepatic Function Panel (2025 6:34 AM EDT) Total Protein 6.9 6.4 - 8.3 g/dL 2025 8:39 AM EDT [facility] Albumin, Blood 3.1(L) 3.5 - 5.2 g/dL 2025 8:39 AM EDT [facility] Globulin Result 3.8 2.0 - 4.0 g/dL 2025 8:39 AM EDT [facility] Total Bilirubin 0.2 0.0 - 1.5 mg/dL 2025 8:39 AM EDT [facility] Direct Bilirubin <0.1 0.0 - 0.3 mg/dL 2025 8:39 AM EDT [facility] Alkaline Phosphatase 141(H) 40 - 130 U/L 2025 8:39 AM EDT [facility] AST (SGOT) 16 0 - 40 U/L 2025 8:39 AM EDT [facility] ALT (SGPT) 10 0 - 40 U/L 2025 8:39 AM EDT [facility] Blood PERIPHERAL BLOOD SPECIMEN / Unknown Venipuncture / Unknown 2025 6:34 AM EDT 2025 7:44 AM EDT Rabia Velasco MD LAB BLOOD ORDERABLES Final Resul t [facility] [address] [place] [address], [place] * Phosphorus (05/26/2025 7:16 AM EDT) Phosphorus 3.8 2.7 - 4.5 mg/dL 05/26/2025 8:09 AM EDT [facility] Blood PERIPHERAL BLOOD SPECIMEN / Unknown Venipuncture / Unknown 05/26/2025 7:16 AM EDT 05/26/2025 7:31 AM EDT Rabia Velasco MD LAB BLOOD ORDERABLES Final Resul t Performing Organization Address City/[facility]/ZIP Co de Phone Number [facility] [address] [place] [address], [place] * Magnesium (05/26/2025 7:16 AM EDT) Magnesium, Blood 2.3 1.6 - 2.6 mg/dL 05/26/2025 8:09 AM EDT [facility] Blood PERIPHERAL BLOOD SPECIMEN / Unknown Venipuncture / Unknown 05/26/2025 7:16 AM EDT 05/26/2025 7:31 AM EDT us Rabia Velasco MD LAB BLOOD ORDERABLES Final Resul t Performing Organization Address City/[facility]/ZIP Co de Phone Number [facility] [address] [place] [address], [place] * (ABNORMAL) Basic Metabolic Panel (05/26/2025 7:16 AM EDT) Sodium 145 135 - 147 mmol/L 05/26/2025 8:09 AM EDT [facility] Potassium 3.9 3.5 - 5.4 mmol/L 05/26/2025 8:09 AM EDT [facility] Chloride 106 96 - 108 mmol/L 05/26/2025 8:09 AM EDT [facility] Total CO2/Bicarbonat e 28 22 - 32 mmol/L 05/26/2025 8:09 AM EDT [facility] Anion Gap 11 10 - 18 mmol/L 05/26/2025 8:09 AM EDT [facility] BUN 34(H) 6 - 20 mg/dL 05/26/2025 8:09 AM EDT [facility] Creatinine, Blood 0.90 0.50 - 1.20 mg/dL 05/26/2025 8:09 AM EDT [facility] Glucose, Blood 104(H) 70 - 100 mg/dL 05/26/2025 8:09 AM EDT [facility] Calcium 8.9 8.4 - 10.3 mg/dL 05/26/2025 8:09 AM EDT [facility] Blood PERIPHERAL BLOOD SPECIMEN / Unknown Venipuncture / Unknown 05/26/2025 7:16 AM EDT 05/26/2025 7:31 AM EDT us Rabia Velasco MD LAB BLOOD ORDERABLES Final Resul t [facility] [address] [place] [address], * (ABNORMAL) CBC and Differential (05/26/2025 7:16 AM EDT) WBC 10.78(H) 4.00 - 10.00 K/uL 05/26/2025 9:11 AM EDT [facility] RBC 3.77(L) 4.60 - 6.10 M/uL 05/26/2025 9:11 AM EDT [facility] Hemoglobin 11.6(L) 13.7 - 17.5 g/dL 05/26/2025 9:11 AM EDT [facility] Hematocrit 35.9(L) 40.0 - 51.0 % 05/26/2025 9:11 AM EDT [facility] MCV 95 82 - 98 fL 05/26/2025 9:11 AM EDT [facility] MCH 30.8 26.0 - 32.0 pg 05/26/2025 9:11 AM EDT [facility] MCHC 32.3 32.0 - 37.0 g/dL 05/26/2025 9:11 AM [facility] RDW 13.1 10.5 - 15.5 % 05/26/2025 9:11 AM [facility] RDW-SD 45.7 35.1 - 46.3 fL 05/26/2025 9:11 AM [facility] Platelet Count 288 150 - 400 K/uL 05/26/2025 9:11 AM [facility] Nucleated RBC 0 <=0 #/100 WBC 05/26/2025 9:11 AM [facility] Neutrophil 85.4(H) 34.0 - 71.0 % 05/26/2025 9:11 AM [facility] Lymphocyte 6.7(L) 19.0 - 53.0 % 05/26/2025 9:11 AM [facility] Monocyte 6.9 5.0 - 13.0 % 05/26/2025 9:11 AM [facility] Eosinophil 0.0(L) 1.0 - 7.0 % 05/26/2025 9:11 AM [facility] Basophil 0.2 0.0 - 1.0 % 05/26/2025 9:11 AM [facility] Immature Granulocyte (Villard, Myelo, Promyelocyte) 0.8(H) 0.0 - 0.6 % 05/26/2025 9:11 AM [facility] Absolute Neutrophil Count 9.21(H) 1.60 - 6.10 K/uL 05/26/2025 9:11 AM [facility] Absolute Lymphocyte Count 0.72(L) 1.20 - 3.70 K/uL 05/26/2025 9:11 AM [facility] Absolute Monocyte Count 0.74 0.20 - 0.80 K/uL 05/26/2025 9:11 AM [facility] Absolute Eosinophil Count 0.00(L) 0.04 - 0.54 K/uL 05/26/2025 9:11 AM [facility] Absolute Basophil Count 0.02 0.01 - 0.08 K/uL 05/26/2025 9:11 AM [facility] Absolute Immature Granulocyte (Villard, Myelo, Promyelocyte) 0.09 0.00 - 0.09 K/uL 05/26/2025 9:11 AM EDT [facility] Blood PERIPHERAL BLOOD SPECIMEN / Unknown Venipuncture / Unknown 05/26/2025 7:16 AM EDT 05/26/2025 7:31 AM EDT Rabia Velasco MD LAB BLOOD ORDERABLES Final Resul t [facility] [address] [place] [address], [place] * (ABNORMAL) Hepatic Function Panel (05/26/2025 7:16 AM EDT) Total Protein 6.3(L) 6.4 - 8.3 g/dL 05/26/2025 8:09 AM EDT [facility] Albumin, Blood 2.9(L) 3.5 - 5.2 g/dL 05/26/2025 8:09 AM EDT [facility] Globulin Result 3.4 2.0 - 4.0 g/dL 05/26/2025 8:09 AM EDT [facility] Total Bilirubin 0.3 0.0 - 1.5 mg/dL 05/26/2025 8:09 AM EDT [facility] Direct Bilirubin 0.1 0.0 - 0.3 mg/dL 05/26/2025 8:09 AM EDT [facility] Alkaline Phosphatase 124 40 - 130 U/L 05/26/2025 8:09 AM EDT [facility] AST (SGOT) 18 0 - 40 U/L 05/26/2025 8:09 AM EDT [facility] ALT (SGPT) 9 0 - 40 U/L 05/26/2025 8:09 AM EDT [facility] Blood PERIPHERAL BLOOD SPECIMEN / Unknown Venipuncture / Unknown 05/26/2025 7:16 AM EDT 05/26/2025 7:31 AM EDT Rabia Velasco MD LAB BLOOD ORDERABLES Final Resul t [facility] [address] [place] [address], [place] * RBC WBC PLT Morphology (05/25/2025 12:28 PM EDT) [facility] Platelet Est Normal Normal 05/25/2025 1:51 PM EDT [facility] ANISOCYTOSIS 1+ 05/25/2025 1:51 PM EDT [facility] Microcytosis 1+ 05/25/2025 1:51 PM EDT [facility] Poikilocytosis 1+ 05/25/2025 1:51 PM EDT [facility] TEAR DROP CELLS 1+ 1:51 PM EDT [facility] Blood PERIPHERAL BLOOD SPECIMEN / Unknown Venipuncture / Unknown 05/25/2025 12:28 PM EDT 05/25/2025 12:32 PM EDT Rabia Velasco MD LAB BLOOD ORDERABLES Final Resul t [facility] [address] [place] [address], [place] * (ABNORMAL) CBC and Differential (05/25/2025 12:28 PM EDT) Pathologist [facility] WBC 13.75(H) 4.00 - 10.00 K/uL 05/25/2025 1:51 PM EDT [facility] RBC 3.87(L) 4.60 - 6.10 M/uL 05/25/2025 1:51 PM EDT [facility] Hemoglobin 11.9(L) 13.7 - 17.5 g/dL 05/25/2025 1:51 PM EDT [facility] Hematocrit 36.6(L) 40.0 - 51.0 % 05/25/2025 1:51 PM EDT [facility] MCV 95 82 - 98 fL 05/25/2025 1:51 PM EDT [facility] MCH 30.7 26.0 - 32.0 pg 05/25/2025 1:51 PM EDT [facility] MCHC 32.5 32.0 - 37.0 g/dL 05/25/2025 1:51 PM T [facility] RDW 12.9 10.5 - 15.5 % 05/25/2025 1:51 PM [facility] RDW-SD 44.5 35.1 - 46.3 fL 05/25/2025 1:51 PM [facility] Platelet Count 272 150 - 400 K/uL 05/25/2025 1:51 PM T [facility] Nucleated RBC 0 <=0 #/100 WBC 05/25/2025 1:51 PM T [facility] Neutrophil 85.0(H) 34.0 - 71.0 % 05/25/2025 1:51 PM [facility] Lymphocyte 6.6(L) 19.0 - 53.0 % 05/25/2025 1:51 PM [facility] Monocyte 7.3 5.0 - 13.0 % 05/25/2025 1:51 PM [facility] Eosinophil 0.1(L) 1.0 - 7.0 % 05/25/2025 1:51 PM [facility] Basophil 0.3 0.0 - 1.0 % 05/25/2025 1:51 PM [facility] Immature Granulocyte (Villard, Myelo, Promyelocyte) 0.7(H) 0.0 - 0.6 % 05/25/2025 1:51 PM [facility] Absolute Neutrophil Count 11.69(H) 1.60 - 6.10 K/uL 05/25/2025 1:51 PM [facility] Absolute Lymphocyte Count 0.91(L) 1.20 - 3.70 K/uL 05/25/2025 1:51 PM [facility] Absolute Monocyte Count 1.00(H) 0.20 - 0.80 K/uL 05/25/2025 1:51 PM [facility] Absolute Eosinophil Count 0.02(L) 0.04 - 0.54 K/uL 05/25/2025 1:51 PM T [facility] Absolute Basophil Count 0.04 0.01 - 0.08 K/uL 05/25/2025 1:51 PM [facility] Absolute Immature Granulocyte (Villard, Myelo, Promyelocyte) 0.09 0.00 - 0.09 K/uL 05/25/2025 1:51 PM EDT [facility] Blood PERIPHERAL BLOOD SPECIMEN / Unknown Venipuncture / Unknown 05/25/2025 12:28 PM EDT 05/25/2025 12:32 PM EDT Rabia Velasco MD LAB BLOOD ORDERABLES Final Resul t Performing Organization Address City/[facility]/ZIP Co de Phone Number [facility] [address] [place] [address], [place] * ECG 12 lead (05/25/2025 12:17 PM EDT) Ventricular Heart Rate 111 BPM EKG B[facility] MUSE Atrial Heart Rate 111 BPM EKG [facility] M[facility] LA Interval 128 ms EKG [facility] MUSE QRSD Interval 100 ms EKG [facility] MUSE QT Interval 374 ms EKG [facility] MUSE QTC Interval 508 ms EKG BUR MUSE P Mathews 50 degrees EKG BUR MUSE R Mathews -25 degrees EKG BUR MUSE T Wave Mathews 53 degrees EKG BUR MUSE 05/25/2025 12:1 9 PM EDT 05/25/2025 2:17 PM EDT Narrative EKG BUR MUSE - 05/25/2025 2:18 PM EDT Sinus tachycardia Otherwise normal ECG When compared with ECG of 21-May-2025 12:53, No significant change was found Procedure Note Lee Griffith MD - 05/25/2025 Sinus tachycardia Otherwise normal ECG When compared with ECG of 21-May-2025 12:53, No significant change was found us Rabia Velasco MD ECG ORDERABLES Final Result Performing Organization Address City/[facility]/ZIP Co de Phone Number EKG BUR MUSE [address] [place] [id number] * (ABNORMAL) Renal Function Panel (05/25/2025 7:32 AM EDT) Sodium 144 135 - 147 mmol/L 05/25/2025 8:37 AM EDT [facility] Potassium 3.9 3.5 - 5.4 mmol/L 05/25/2025 8:37 AM EDT [facility] Chloride 104 96 - 108 mmol/L 05/25/2025 8:37 AM EDT [facility] Total CO2/Bicarbonate 29 22 - 32 mmol/L 05/25/2025 8:37 AM EDT [facility] Anion Gap 11 10 - 18 mmol/L 05/25/2025 8:37 AM EDT [facility] BUN 31(H) 6 - 20 mg/dL 05/25/2025 8:37 AM EDT [facility] Creatinine, Blood 1.10 0.50 - 1.20 mg/dL 05/25/2025 8:37 AM EDT [facility] Glucose, Blood 200(H) 70 - 100 mg/dL 05/25/2025 8:37 AM EDT [facility] Calcium 8.7 8.4 - 10.3 mg/dL 05/25/2025 8:37 AM EDT [facility] Albumin, Blood 3.0(L) 3.5 - 5.2 g/dL 05/25/2025 8:37 AM EDT [facility] Phosphorus 2.8 2.7 - 4.5 mg/dL 05/25/2025 8:37 AM EDT [facility] Magnesium, Blood 2.5 1.6 - 2.6 mg/dL 05/25/2025 8:37 AM EDT [facility] Blood PERIPHERAL BLOOD SPECIMEN / Unknown Venipuncture / Unknown 05/25/2025 7:32 AM EDT 05/25/2025 7:55 AM EDT us Imelda Xie MD LAB BLOOD ORDERABLES Final Res ult [facility] [address] [place] [address], [place] * (ABNORMAL) Valproic Acid Level (05/25/2025 7:32 AM EDT) Valproic Acid Level, Blood 33(L) 50 - 100 ug/mL 05/25/2025 8:37 AM EDT [facility] Blood PERIPHERAL BLOOD SPECIMEN / Unknown Venipuncture / Unknown 05/25/2025 7:32 AM EDT 05/25/2025 7:55 AM EDT us Rabia Velasco MD LAB BLOOD ORDERABLES Final Resul t [facility] [address] [place] [address], [place] * Urine Micro Hold (05/25/2025 5:11 AM EDT) Micro Urine Reflex Hold Received 05/25/2025 8:01 AM EDT [facility] AP Urine MID-STREAM URINE SPECIMEN / Unknown Collection / Unknown 05/25/2025 5:11 AM EDT 05/25/2025 5:15 AM EDT us Rabia Velasco MD URINE ORDERABLES Final Result [facility] AP [address] [place] [address], [place] * (ABNORMAL) Urinalysis with Reflex to Urine Culture (05/25/2025 5:11 AM EDT) Color, Urine Yellow Yellow, Colorless, Straw 05/25/2025 5:41 AM EDT [facility] Clarity, Urine Clear Clear 05/25/2025 5:41 AM EDT [facility] pH, Urine 7.5 5.0 - 8.0 05/25/2025 5:41 AM EDT [facility] Protein, Urine 50 mg/dL(A) Negative 05/25/2025 5:41 AM EDT [facility] Glucose, Urine Negative Negative 05/25/2025 5:41 AM EDT [facility] Ketone, Urine Negative Negative 05/25/2025 5:41 AM EDT [facility] Bilirubin, Urine Negative Negative 05/25/2025 5:41 AM EDT [facility] Urobilinogen, Urine Normal 0.2-1.0 mg/dL 05/25/2025 5:41 AM EDT [facility] Blood, Urine Negative Negative 05/25/2025 5:41 AM EDT [facility] Leukocyte Esterase, Urine Negative Negative 05/25/2025 5:41 AM EDT [facility] Nitrite, Urine Negative Negative 05/25/2025 5:41 AM EDT [facility] Specific Tynan, Urine 1.029 1.001 - 1.050 05/25/2025 5:41 AM EDT [facility] White Blood Cells, Urine <1 0 - 5 /hpf 05/25/2025 5:41 AM EDT [facility] Red Blood Cells, Urine 2 0 - 2 /hpf 05/25/2025 5:41 AM EDT [facility] Urine MID-STREAM URINE SPECIMEN / Unknown Collection / Unknown 05/25/2025 5:11 AM EDT 05/25/2025 5:15 AM EDT us Rabia Velasco MD URINE ORDERABLES Final Result [facility] [address] [place] [address], [place] * Culture, Blood (05/24/2025 6:58 PM EDT) Culture No growth after 5 days STEPHEN 05/29/2025 9:02 PM EDT [facility] Blood PERIPHERAL BLOOD SPECIMEN / Unknown Venipuncture / Unknown 05/24/2025 6:58 PM EDT 05/24/2025 7:02 PM EDT us Rabia Velasco MD MICROBIOLOGY - GENERAL ORDERABLE S Final Result [facility] [address] [place] [address], [place] * XR Chest 1 VW Portable (05/24/2025 10:55 AM EDT) Anatomical Region Laterality Modality Chest Digital Radiogra phy 05/24/2025 11:2 3 AM EDT Impressions 05/24/2025 11:22 AM EDT Large left lower lobe consolidation is demonstrated, substantially progressed compared to 22 May 2025 concerning for large left lower lobe pneumonia. Rest of the lungs are overall clear. No appreciable pleural effusion or pneumothorax.. Cassandra Pinzon MD, electronically signed on May 24 2025 11:22AM Narrative 05/24/2025 11:22 AM EDT EXAMINATION: XR CHEST 1 VW PORTABLE INDICATION: fever; fever; Procedure Note Cassandra Pinzon MD - 05/24/2025 EXAMINATION: XR CHEST 1 VW PORTABLE INDICATION: fever; fever; IMPRESSION: Large left lower lobe consolidation is demonstrated, substantiallyprogressed compared to 22 May 2025 concerning for large left lower lobepneumonia. Rest of the lungs are overall clear. No appreciable pleuraleffusion or pneumothorax.. Cassandra Pinzon MD, electronically signed on May 24 2025 11:22AM us Rabia Velasco MD IMG DIAGNOSTIC IMAGING ORDERABLE S Final Result * (ABNORMAL) Coronavirus SARS-CoV-2, Influenza A/B and RSV (05/24/2025 10:28 AM EDT) Coronavirus SARS-CoV-2 Positive(A) Negative 05/24/2025 11:10 AM EDT [facility] Influenza A Negative Not Detected by PCR 05/24/2025 11:10 AM EDT [facility] Influenza B Negative Not Detected by PCR 05/24/2025 11:10 AM EDT [facility] RSV by PCR Negative Not Detected by PCR 05/24/2025 11:10 AM EDT [facility] Respiratory SWAB OF INTERNAL NOSE / Unknown Collection / Unknown 05/24/2025 10:28 AM EDT 05/24/2025 10:29 AM EDT Narrative [facility] - 05/24/2025 11:10 AM EDT Test performed by [employer] real-time PCR. us Rabia Velasco MD BODY FLUIDS AND STOOLS ORDERABLE S Final Result [facility] [address] [place] [address], [place] * (ABNORMAL) CBC and Differential (05/24/2025 6:28 AM EDT) WBC 11.29(H) 4.00 - 10.00 K/uL 05/24/2025 7:57 AM EDT [facility] RBC 4.35(L) 4.60 - 6.10 M/uL 05/24/2025 7:57 AM EDT [facility] Hemoglobin 13.5(L) 13.7 - 17.5 g/dL 05/24/2025 7:57 AM EDT [facility] Hematocrit 42.2 40.0 - 51.0 % 05/24/2025 7:57 AM EDT [facility] MCV 97 82 - 98 fL 05/24/2025 7:57 AM EDT [facility] MCH 31.0 26.0 - 32.0 pg 05/24/2025 7:57 AM EDT [facility] MCHC 32.0 32.0 - 37.0 g/dL 05/24/2025 7:57 AM EDT [facility] RDW 13.0 10.5 - 15.5 % 05/24/2025 7:57 AM EDT [facility] RDW-SD 46.5(H) 35.1 - 46.3 fL 05/24/2025 7:57 AM EDT [facility] Platelet Count 255 150 - 400 K/uL 05/24/2025 7:57 AM EDT [facility] Nucleated RBC 0 <=0 #/100 WBC 05/24/2025 7:57 AM EDT [facility] Neutrophil 80.7(H) 34.0 - 71.0 % 05/24/2025 7:57 AM EDT [facility] Lymphocyte 7.5(L) 19.0 - 53.0 % 05/24/2025 7:57 AM EDT [facility] Monocyte 11.0 5.0 - 13.0 % 05/24/2025 7:57 AM EDT [facility] Eosinophil 0.0(L) 1.0 - 7.0 % 05/24/2025 7:57 AM EDT [facility] Basophil 0.4 0.0 - 1.0 % 05/24/2025 7:57 AM EDT [facility] Immature Granulocyte (Villard, Myelo, Promyelocyte) 0.4 0.0 - 0.6 % 05/24/2025 7:57 AM EDT [facility] Absolute Neutrophil Count 9.12(H) 1.60 - 6.10 K/uL 05/24/2025 7:57 AM EDT [facility] Absolute Lymphocyte Count 0.85(L) 1.20 - 3.70 K/uL 05/24/2025 7:57 AM EDT [facility] Absolute Monocyte Count 1.24(H) 0.20 - 0.80 K/uL 05/24/2025 7:57 AM EDT [facility] Absolute Eosinophil Count 0.00(L) 0.04 - 0.54 K/uL 05/24/2025 7:57 AM EDT [facility] Absolute Basophil Count 0.04 0.01 - 0.08 K/uL 05/24/2025 7:57 AM EDT [facility] Absolute Immature Granulocyte (Villard, Myelo, Promyelocyte) 0.04 0.00 - 0.09 K/uL 05/24/2025 7:57 AM EDT [facility] Blood PERIPHERAL BLOOD SPECIMEN / Unknown Venipuncture / Unknown 05/24/2025 6:28 AM EDT 05/24/2025 6:53 AM EDT us Rabia Velasco MD LAB BLOOD ORDERABLES Final Resul t [facility] [address] [place] [address], * (ABNORMAL) Phosphorus (05/24/2025 6:27 AM EDT) Phosphorus 2.1(L) 2.7 - 4.5 mg/dL 05/24/2025 7:22 AM EDT [facility] Blood PERIPHERAL BLOOD SPECIMEN / Unknown Venipuncture / Unknown 05/24/2025 6:27 AM EDT 05/24/2025 6:49 AM EDT us Rabia Velasco MD LAB BLOOD ORDERABLES Final Resul t [facility] [address] [place] [id number], [place] * Magnesium (05/24/2025 6:27 AM EDT) Magnesium, Blood 2.5 1.6 - 2.6 mg/dL 05/24/2025 7:22 AM EDT [facility] Blood PERIPHERAL BLOOD SPECIMEN / Unknown Venipuncture / Unknown 05/24/2025 6:27 AM EDT 05/24/2025 6:49 AM EDT us Rabia Velasco MD LAB BLOOD ORDERABLES Final Resul t Performing Organization Address City/[facility]/ZIP Co de Phone Number [facility] [address] [place] [address], [place] * (ABNORMAL) Basic Metabolic Panel (05/24/2025 6:27 AM EDT) Sodium 141 135 - 147 mmol/L 05/24/2025 7:22 AM EDT [facility] Potassium 4.0 3.5 - 5.4 mmol/L 05/24/2025 7:22 AM EDT [facility] Chloride 104 96 - 108 mmol/L 05/24/2025 7:22 AM EDT [facility] Total CO2/Bicarbonat e 24 22 - 32 mmol/L 05/24/2025 7:22 AM EDT [facility] Anion Gap 13 10 - 18 mmol/L 05/24/2025 7:22 AM EDT [facility] BUN 25(H) 6 - 20 mg/dL 05/24/2025 7:22 AM EDT [facility] Creatinine, Blood 1.10 0.50 - 1.20 mg/dL 05/24/2025 7:22 AM EDT [facility] Glucose, Blood 185(H) 70 - 100 mg/dL 05/24/2025 7:22 AM EDT [facility] Calcium 9.0 8.4 - 10.3 mg/dL 05/24/2025 7:22 AM EDT [facility] Estimated GFR(CKD-EPI) 74 mL/min/BSA 05/24/2025 7:22 AM EDT [facility] Blood PERIPHERAL BLOOD SPECIMEN / Unknown Venipuncture / Unknown 05/24/2025 6:27 AM EDT 05/24/2025 6:49 AM EDT us Rabia Velasco MD LAB BLOOD ORDERABLES Final Resul t [facility] [address] [place] [address], [place] * (ABNORMAL) Hepatic Function Panel (05/24/2025 6:27 AM EDT) Total Protein 6.5 6.4 - 8.3 g/dL 05/24/2025 7:22 AM EDT [facility] Albumin, Blood 3.1(L) 3.5 - 5.2 g/dL 05/24/2025 7:22 AM EDT [facility] Globulin Result 3.4 2.0 - 4.0 g/dL 05/24/2025 7:22 AM EDT [facility] Total Bilirubin 0.5 0.0 - 1.5 mg/dL 05/24/2025 7:22 AM EDT [facility] Direct Bilirubin 0.1 0.0 - 0.3 mg/dL 05/24/2025 7:22 AM EDT [facility] Alkaline Phosphatase 147(H) 40 - 130 U/L 05/24/2025 7:22 AM EDT [facility] AST (SGOT) 22 0 - 40 U/L 05/24/2025 7:22 AM EDT [facility] ALT (SGPT) 8 0 - 40 U/L 05/24/2025 7:22 AM EDT [facility] Blood PERIPHERAL BLOOD SPECIMEN / Unknown Venipuncture / Unknown 05/24/2025 6:27 AM EDT 05/24/2025 6:49 AM EDT Rabia Velasco MD LAB BLOOD ORDERABLES Final Resul t [facility] [address] [place] [address], [place] * XR Chest 1 VW Portable (05/22/2025 1:57 PM EDT) Anatomical Region Laterality Modality Chest Digital Radiogra phy 05/22/2025 1:39 PM EDT Impressions 05/22/2025 1:37 PM EDT In comparison with the study May 07 there are mildly improved lung volumes. Cardiac silhouette is within normal limits with no vascular congestion or pleural effusion. No focal consolidation, though the area behind the heart is not optimally visualized in the absence of a lateral view. Austin Doe MD, electronically signed on May 22 2025 01:37PM Narrative 05/22/2025 1:37 PM EDT EXAMINATION: XR CHEST 1 VW PORTABLE INDICATION: 69 yo M with productive cough, concerned for aspiration PNA; Procedure Note Austin Doe MD - 05/22/2025 EXAMINATION: XR CHEST 1 VW PORTABLE INDICATION: 69 yo M with productive cough, concerned for aspiration PNA; IMPRESSION: In comparison with the study May 07 there are mildly improved lungvolumes. Cardiac silhouette is within normal limits with no vascularcongestion or pleural effusion. No focal consolidation, though the areabehind the heart is not optimally visualized in the absence of a lateral view. Austin Doe MD, electronically signed on May 22 2025 01:37PM Imelda Xie MD IMG DIAGNOSTIC IMAGING ORDERAB LES Final Result * (ABNORMAL) CBC and Differential (05/22/2025 7:01 AM EDT) WBC 12.19(H) 4.00 - 10.00 K/uL 05/22/2025 7:39 AM EDT [facility] RBC 4.28(L) 4.60 - 6.10 M/uL 05/22/2025 7:39 AM EDT [facility] Hemoglobin 13.3(L) 13.7 - 17.5 g/dL 05/22/2025 7:39 AM [facility] Hematocrit 41.1 40.0 - 51.0 % 05/22/2025 7:39 AM [facility] MCV 96 82 - 98 fL 05/22/2025 7:39 AM [facility] MCH 31.1 26.0 - 32.0 pg 05/22/2025 7:39 AM [facility] MCHC 32.4 32.0 - 37.0 g/dL 05/22/2025 7:39 AM [facility] RDW 12.8 10.5 - 15.5 % 05/22/2025 7:39 AM [facility] RDW-SD 45.0 35.1 - 46.3 fL 05/22/2025 7:39 AM [facility] Platelet Count 272 150 - 400 K/uL 05/22/2025 7:39 AM [facility] Nucleated RBC 0 <=0 #/100 WBC 05/22/2025 7:39 AM [facility] Neutrophil 82.1(H) 34.0 - 71.0 % 05/22/2025 7:39 AM [facility] Lymphocyte 8.0(L) 19.0 - 53.0 % 05/22/2025 7:39 AM [facility] Monocyte 8.9 5.0 - 13.0 % 05/22/2025 7:39 AM [facility] Eosinophil 0.0(L) 1.0 - 7.0 % 05/22/2025 7:39 AM [facility] Basophil 0.3 0.0 - 1.0 % 05/22/2025 7:39 AM [facility] Immature Granulocyte (Villard, Myelo, Promyelocyte) 0.7(H) 0.0 - 0.6 % 05/22/2025 7:39 AM [facility] Absolute Neutrophil Count 10.00(H) 1.60 - 6.10 K/uL 05/22/2025 7:39 AM [facility] Absolute Lymphocyte Count 0.97(L) 1.20 - 3.70 K/uL 05/22/2025 7:39 AM EDT [facility] Absolute Monocyte Count 1.09(H) 0.20 - 0.80 K/uL 05/22/2025 7:39 AM EDT [facility] Absolute Eosinophil Count 0.00(L) 0.04 - 0.54 K/uL 05/22/2025 7:39 AM EDT [facility] Absolute Basophil Count 0.04 0.01 - 0.08 K/uL 05/22/2025 7:39 AM EDT [facility] Absolute Immature Granulocyte (Villard, Myelo, Promyelocyte) 0.09 0.00 - 0.09 K/uL 05/22/2025 7:39 AM EDT [facility] Blood PERIPHERAL BLOOD SPECIMEN / Unknown Venipuncture / Unknown 05/22/2025 7:01 AM EDT 05/22/2025 7:20 AM EDT us Bonifacio Agudelo MD LAB BLOOD ORDERABLES Final Resul t [facility] [address] [place] [address], * ECG 12 lead (05/21/2025 12:55 PM EDT) Ventricular Heart Rate 95 BPM EKG B[facility] MUSE Atrial Heart Rate 95 BPM EKG [facility] M[facility] LA Interval 140 ms EKG B[facility] MUSE QRSD Interval 106 ms EKG B[facility] MUSE QT Interval 404 ms EKG B[facility] MUSE QTC Interval 507 ms EKG BUR MUSE P Mathews 58 degrees EKG BUR MUSE R Mathews -35 degrees EKG BUR MUSE T Wave Mathews 44 degrees EKG BUR MUSE 05/21/2025 12:5 3 PM EDT 05/23/2025 11:37 AM EDT Narrative EKG BUR MUSE - 05/23/2025 11:37 AM EDT Normal sinus rhythm Left axis deviation Minimal voltage criteria for LVH, may be normal variant Prolonged QT interval Abnormal ECG When compared with ECG of 19-May-2025 11:41, No significant change was found Procedure Note Miguel Solano MD - 05/23/2025 Normal sinus rhythm Left axis deviation Minimal voltage criteria for LVH, may be normal variant Prolonged QT interval Abnormal ECG When compared with ECG of 19-May-2025 11:41, No significant change was found us Imelda Xie MD ECG ORDERABLES Final Result Performing Organization Address [facility] Co de Phone Number EKG BUR MUSE [address] [place] [address] * ECG 12 lead (05/19/2025 11:42 AM EDT) Pathologist [facility] Ventricular Heart Rate 101 BPM EKG B[facility] MUSE Atrial Heart Rate 101 BPM EKG B[facility] MUSE LA Interval 150 ms EKG B[facility] MUSE QRSD Interval 100 ms EKG B[facility] MUSE QT Interval 386 ms EKG B[facility] MUSE QTC Interval 500 ms EKG BUR MUSE P Mathews 35 degrees EKG BUR MUSE R Mathews -33 degrees EKG BUR MUSE T Wave Mathews 48 degrees EKG BUR MUSE 05/19/2025 11:4 1 AM EDT 05/20/2025 7:53 AM EDT Narrative EKG BUR MUSE - 05/20/2025 7:53 AM EDT Sinus tachycardia Left axis deviation Moderate voltage criteria for LVH, may be normal variant Abnormal ECG When compared with ECG of 11-May-2025 23:34, no significant change Procedure Note Lee Ferguson MD - 05/20/2025 Sinus tachycardia Left axis deviation Moderate voltage criteria for LVH, may be normal variant Abnormal ECG When compared with ECG of 11-May-2025 23:34, no significant change us Imelda Xie MD ECG ORDERABLES Final Result Performing Organization Address [facility] Co de Phone Number EKG [facility] [address] [place] [address] * (ABNORMAL) POCT Glucose (05/16/2025 12:26 PM EDT) Glucose, POC 127(H) 70 - 100 mg/dL 05/16/2025 12:26 PM EDT [facility] Comment: @Serial Vsfdor=[id number] @Technical Sales Specialist PR=[id number] Blood 05/16/2025 12:2 6 PM EDT 05/16/2025 12:26 PM EDT us Mohinder Johnson MD POCT ORDERABLES - DEVICE Final Result [facility] [address] [place] [phone], * (ABNORMAL) CBC and Differential (05/15/2025 6:56 AM EDT) [facility] WBC 11.50(H) 4.00 - 10.00 K/uL 05/15/2025 8:16 AM EDT [facility] RBC 4.06(L) 4.60 - 6.10 M/uL 05/15/2025 8:16 AM EDT [facility] Hemoglobin 12.7(L) 13.7 - 17.5 g/dL 05/15/2025 8:16 AM EDT [facility] Hematocrit 39.2(L) 40.0 - 51.0 % 05/15/2025 8:16 AM EDT [facility] MCV 97 82 - 98 fL 05/15/2025 8:16 AM EDT [facility] MCH 31.3 26.0 - 32.0 pg 05/15/2025 8:16 AM EDT [facility] MCHC 32.4 32.0 - 37.0 g/dL 05/15/2025 8:16 AM EDT [facility] RDW 12.7 10.5 - 15.5 % 05/15/2025 8:16 AM EDT [facility] RDW-SD 45.1 35.1 - 46.3 fL 05/15/2025 8:16 AM EDT [facility] Platelet Count 277 150 - 400 K/uL 05/15/2025 8:16 AM [facility] Nucleated RBC 0 <=0 #/100 WBC 05/15/2025 8:16 AM [facility] Neutrophil 79.8(H) 34.0 - 71.0 % 05/15/2025 8:16 AM [facility] Lymphocyte 11.4(L) 19.0 - 53.0 % 05/15/2025 8:16 AM [facility] Monocyte 7.5 5.0 - 13.0 % 05/15/2025 8:16 AM [facility] Eosinophil 0.0(L) 1.0 - 7.0 % 05/15/2025 8:16 AM [facility] Basophil 0.4 0.0 - 1.0 % 05/15/2025 8:16 AM [facility] Immature Granulocyte (Villard, Myelo, Promyelocyte) 0.9(H) 0.0 - 0.6 % 05/15/2025 8:16 AM [facility] Absolute Neutrophil Count 9.18(H) 1.60 - 6.10 K/uL 05/15/2025 8:16 AM [facility] Absolute Lymphocyte Count 1.31 1.20 - 3.70 K/uL 05/15/2025 8:16 AM [facility] Absolute Monocyte Count 0.86(H) 0.20 - 0.80 K/uL 05/15/2025 8:16 AM [facility] Absolute Eosinophil Count 0.00(L) 0.04 - 0.54 K/uL 05/15/2025 8:16 AM [facility] Absolute Basophil Count 0.05 0.01 - 0.08 K/uL 05/15/2025 8:16 AM [facility] Absolute Immature Granulocyte (Villard, Myelo, Promyelocyte) 0.10(H) 0.00 - 0.09 K/uL 05/15/2025 8:16 AM [facility] Blood PERIPHERAL BLOOD SPECIMEN / Unknown Venipuncture / Unknown 05/15/2025 6:56 AM EDT 05/15/2025 7:20 AM EDT us Bonifacio Agudelo MD LAB BLOOD ORDERABLES Final Resul t [facility] [address] [place] [address], * (ABNORMAL) CBC and Differential (05/14/2025 3:40 PM EDT) WBC 8.40 4.00 - 10.00 K/uL 05/14/2025 3:57 PM EDT [facility] RBC 3.99(L) 4.60 - 6.10 M/uL 05/14/2025 3:57 PM EDT [facility] Hemoglobin 12.4(L) 13.7 - 17.5 g/dL 05/14/2025 3:57 PM EDT [facility] Hematocrit 38.4(L) 40.0 - 51.0 % 05/14/2025 3:57 PM EDT [facility] MCV 96 82 - 98 fL 05/14/2025 3:57 PM EDT [facility] MCH 31.1 26.0 - 32.0 pg 05/14/2025 3:57 PM EDT [facility] MCHC 32.3 32.0 - 37.0 g/dL 05/14/2025 3:57 PM EDT [facility] RDW 12.5 10.5 - 15.5 % 05/14/2025 3:57 PM EDT [facility] RDW-SD 44.4 35.1 - 46.3 fL 05/14/2025 3:57 PM EDT [facility] Platelet Count 279 150 - 400 K/uL 05/14/2025 3:57 PM EDT [facility] Nucleated RBC 0 <=0 #/100 WBC 05/14/2025 3:57 PM EDT [facility] Neutrophil 75.8(H) 34.0 - 71.0 % 05/14/2025 3:57 PM EDT [facility] Lymphocyte 15.1(L) 19.0 - 53.0 % 05/14/2025 3:57 PM EDT [facility] Monocyte 7.5 5.0 - 13.0 % 05/14/2025 3:57 PM EDT [facility] Eosinophil 0.0(L) 1.0 - 7.0 % 05/14/2025 3:57 PM EDT [facility] Basophil 0.5 0.0 - 1.0 % 05/14/2025 3:57 PM EDT [facility] Immature Granulocyte (Villard, Myelo, Promyelocyte) 1.1(H) 0.0 - 0.6 % 05/14/2025 3:57 PM EDT [facility] Absolute Neutrophil Count 6.37(H) 1.60 - 6.10 K/uL 05/14/2025 3:57 PM EDT [facility] Absolute Lymphocyte Count 1.27 1.20 - 3.70 K/uL 05/14/2025 3:57 PM EDT [facility] Absolute Monocyte Count 0.63 0.20 - 0.80 K/uL 05/14/2025 3:57 PM EDT [facility] Absolute Eosinophil Count 0.00(L) 0.04 - 0.54 K/uL 05/14/2025 3:57 PM EDT [facility] Absolute Basophil Count 0.04 0.01 - 0.08 K/uL 05/14/2025 3:57 PM EDT [facility] Absolute Immature Granulocyte (Villard, Myelo, Promyelocyte) 0.09 0.00 - 0.09 K/uL 05/14/2025 3:57 PM EDT [facility] Blood PERIPHERAL BLOOD SPECIMEN / Unknown Venipuncture / Unknown 05/14/2025 3:40 PM EDT 05/14/2025 3:47 PM EDT us Mohinder Johnson MD LAB BLOOD ORDERABLES Final Res ult [facility] [address] [place] [address], * (ABNORMAL) Renal Function Panel (05/14/2025 3:40 PM EDT) Sodium 142 135 - 147 mmol/L 05/14/2025 4:23 PM EDT [facility] Potassium 4.1 3.5 - 5.4 mmol/L 05/14/2025 4:23 PM EDT [facility] Chloride 105 96 - 108 mmol/L 05/14/2025 4:23 PM EDT [facility] Total CO2/Bicarbonate 27 22 - 32 mmol/L 05/14/2025 4:23 PM EDT [facility] Anion Gap 10 10 - 18 mmol/L 05/14/2025 4:23 PM EDT [facility] BUN 30(H) 6 - 20 mg/dL 05/14/2025 4:23 PM EDT [facility] Creatinine, Blood 1.00 0.50 - 1.20 mg/dL 05/14/2025 4:23 PM EDT [facility] Glucose, Blood 149(H) 70 - 100 mg/dL 05/14/2025 4:23 PM EDT [facility] Calcium 9.0 8.4 - 10.3 mg/dL 05/14/2025 4:23 PM EDT [facility] Albumin, Blood 3.3(L) 3.5 - 5.2 g/dL 05/14/2025 4:23 PM EDT [facility] Phosphorus 2.8 2.7 - 4.5 mg/dL 05/14/2025 4:23 PM EDT [facility] Magnesium, Blood 2.3 1.6 - 2.6 mg/dL 05/14/2025 4:23 PM EDT [facility] Estimated GFR(CKD-EPI) 82 mL/min/BSA 05/14/2025 4:23 PM EDT [facility] Blood PERIPHERAL BLOOD SPECIMEN / Unknown Venipuncture / Unknown 05/14/2025 3:40 PM EDT 05/14/2025 3:46 PM EDT us Mohinder Johnson MD LAB BLOOD ORDERABLES Final Res ult [facility] [address] [place] [address], [place] * XR Abdomen Portable (05/12/2025 6:34 PM EDT) Anatomical Region Laterality Modality Abdomen Digital Radiogra phy 05/12/2025 6:30 PM EDT Impressions 05/12/2025 6:29 PM EDT Radiopaque contrast is noted within the duodenum and jejunal bowel loops. There are no abnormally dilated loops of large or small bowel. Mildly increased colonic fecal load. Assessment for free intraperitoneal air is limited on supine radiographs. If there is clinical concern for pneumoperitoneum, advise upright or left lateral decubitus radiograph, or cross-sectional imaging. No acute osseous abnormality. Mild degenerative changes of the lumbar spine. Surgical clips project over the left lower abdomen. Status post posterior fusion of the lower lumbar spine. Nolberto Bajwa MD, electronically signed on May 12 2025 06:29PM Narrative 05/12/2025 6:29 PM EDT INDICATION: G tube placement; TECHNIQUE: Supine abdominal radiograph was obtained. COMPARISON: 02 May 2025, XR abdomen Procedure Note Nolberto Bajwa MD - 05/12/2025 INDICATION: G tube placement; TECHNIQUE: Supine abdominal radiograph was obtained. COMPARISON: 02 May 2025, XR abdomen IMPRESSION: Radiopaque contrast is noted within the duodenum and jejunal bowelloops. There are no abnormally dilated loops of large or small bowel. Mildlyincreased colonic fecal load. Assessment for free intraperitoneal air is limited on supine radiographs.If there is clinical concern for pneumoperitoneum, advise upright or leftlateral decubitus radiograph, or cross-sectional imaging. No acute osseous abnormality. Mild degenerative changes of the lumbarspine. Surgical clips project over the left lower abdomen. Status post posteriorfusion of the lower lumbar spine. Nolberto Bajwa MD, electronically signed on May 12 2025 06:29PM Mohinder Johnson MD IMG DIAGNOSTIC IMAGING ORDERAB LES Final Result * IR G Tube Rescue (05/12/2025 5:00 PM EDT) Anatomical Region Laterality Modality X-Ray Angiograph y 05/14/2025 12:2 4 PM EDT Impressions 05/14/2025 12:22 PM EDT Technically successful gastrostomy tube rescue with placement of a new 16 Georgian (3 cm stoma length) gastrostomy tube. Recommend gastrostomy tube study to confirm appropriate position. Once appropriate position has been confirmed, the gastrostomy tube can be used. Cassandra Fernandez MD, electronically signed on May 14 2025 12:22PM Narrative 05/14/2025 12:22 PM EDT INDICATION: G tube rescue; Additional information: 69-year-old male with recurrent aspiration oropharyngeal dysphagia maintained with a G-tube. Initially placed in December 2024. COMPARISON: None available. TECHNIQUE: OPERATORS: Dr. Fernandez, attending interventional radiologist and Dr. Hamm, resident interventional radiologist performed the procedure. The attending personally supervised the trainee during any evans components of the procedure where applicable and reviewed and agrees with the findings as reported below. ANESTHESIA: Lidocaine jelly only. MEDICATIONS: Lidocaine jelly CONTRAST: None PROCEDURE: PROCEDURE: The procedure was performed bedside. The patient was placed supine. A time-out was performed with 3 patient identifiers. The midabdomen was prepped and draped in a sterile fashion. A 12 Georgian Maharaj was identified in the gastrostomy tract. The balloon of the Maharaj was deflated. A stiff Glidewire was advanced through the Maharaj catheter into the stomach. The Maharaj was removed with gentle traction. A 16 Georgian low- profile 3 cm stoma gastrostomy tube was advanced over the stiff Glidewire and into the stomach. The balloon was inflated with sterile water. The gastrostomy tube was aspirated revealing gastric contents. The gastrostomy tube was then flushed sterile water. Sterile dressings were applied. Patient tolerated the procedure well. No immediate postprocedural complications. FINDINGS: Existing gastrostomy tract with 12 Georgian Maharaj. Placement of new 16 Georgian 3 cm low-profile gastrostomy tube with aspiration of gastric contents confirming appropriate position. Recommend confirmation with injection of contrast and radiograph. Procedure Note Cassandra Fernandez MD - 05/14/2025 INDICATION: G tube rescue; Additional information: 69-year-old male with recurrent aspirationoropharyngeal dysphagia maintained with a G-tube. Initially placed inDecember 2024. COMPARISON: None available. TECHNIQUE: OPERATORS: Dr. Fernandez, attending interventional radiologist and Dr. Hamm,resident interventional radiologist performed the procedure. Theattending personally supervised the trainee during any evans components ofthe procedure where applicable and reviewed and agrees with the findings as reported below. ANESTHESIA: Lidocaine jelly only. MEDICATIONS: Lidocaine jelly CONTRAST: None PROCEDURE: PROCEDURE: The procedure was performed bedside. The patient was placed supine. Atime-out was performed with 3 patient identifiers. The midabdomen wasprepped and draped in a sterile fashion. A 12 Georgian Maharaj was identifiedin the gastrostomy tract. The balloon of the Maharaj was deflated. A stiff Glidewire was advanced through the Foleycatheter into the stomach. The Maharaj was removed with gentle traction. A16 Georgian low-profile 3 cm stoma gastrostomy tube was advanced over thestiff Glidewire and into the stomach. The balloon was inflated with sterile water. The gastrostomy tubewas aspirated revealing gastric contents. The gastrostomy tube was thenflushed sterile water. Sterile dressings were applied. Patient tolerated the procedure well. No immediate postproceduralcomplications. FINDINGS: Existing gastrostomy tract with 12 Georgian Maharaj. Placement of new 16 Georgian 3 cm low-profile gastrostomy tube withaspiration of gastric contents confirming appropriate position. Recommendconfirmation with injection of contrast and radiograph. IMPRESSION: Technically successful gastrostomy tube rescue with placement of a new 16French (3 cm stoma length) gastrostomy tube. Recommend gastrostomy tubestudy to confirm appropriate position. Once appropriate position has beenconfirmed, the gastrostomy tube can be used. Cassandra Fernandez MD, electronically signed on May 14 2025 12:22PM Kimi Correa MD IMG IR ORDERABLES Final Result * ECG 12 lead (05/11/2025 11:34 PM EDT) Ventricular Heart Rate 95 BPM EKG BUR MUSE Atrial Heart Rate 95 BPM EKG B[facility] MUSE LA Interval 154 ms EKG BUR MUSE QRSD Interval 100 ms EKG BUR MUSE QT Interval 394 ms EKG BUR MUSE QTC Interval 495 ms EKG BUR MUSE P Mathews 87 degrees EKG BUR MUSE R Mathews -37 degrees EKG BUR MUSE T Wave Mathews 65 degrees EKG BUR MUSE 05/11/2025 11:3 4 PM EDT 05/12/2025 4:08 PM EDT Narrative EKG BUR MUSE - 05/12/2025 4:08 PM EDT Normal sinus rhythm Left axis deviation Nonspecific intraventricular conduction delay When compared with ECG of 10-May-2025 12:40, (Unconfirmed) no significant change Procedure Note Sammy Justice MD - 05/12/2025 Normal sinus rhythm Left axis deviation Nonspecific intraventricular conduction delay When compared with ECG of 10-May-2025 12:40, (Unconfirmed) no significant change us Mohinder Johnson MD ECG ORDERABLES Final Result Performing Organization Address [facility]/ZIP Co de Phone Number EKG KATH [address] [address] * POCT Glucose (05/11/2025 11:31 PM EDT) Glucose, POC 100 70 - 100 mg/dL 05/11/2025 11:41 PM EDT [facility] Comment: @Serial Kthdeo=[id number] @Technical Sales Specialist CL=[id number] Blood 05/11/2025 11:3 1 PM EDT 05/11/2025 11:41 PM EDT us Mohinder Johnson MD POCT ORDERABLES - DEVICE Final Result Performing Organization Address [facility] Co de Phone Number [facility] [address] [place] [address], * (ABNORMAL) CBC and Differential (05/09/2025 7:24 AM EDT) WBC 11.73(H) 4.00 - 10.00 K/uL 05/09/2025 8:03 AM EDT [facility] RBC 3.76(L) 4.60 - 6.10 M/uL 05/09/2025 8:03 AM EDT [facility] Hemoglobin 11.9(L) 13.7 - 17.5 g/dL 05/09/2025 8:03 AM EDT [facility] Hematocrit 36.1(L) 40.0 - 51.0 % 05/09/2025 8:03 AM T [facility] MCV 96 82 - 98 fL 05/09/2025 8:03 AM [facility] MCH 31.6 26.0 - 32.0 pg 05/09/2025 8:03 AM [facility] MCHC 33.0 32.0 - 37.0 g/dL 05/09/2025 8:03 AM T [facility] RDW 12.9 10.5 - 15.5 % 05/09/2025 8:03 AM [facility] RDW-SD 44.8 35.1 - 46.3 fL 05/09/2025 8:03 AM [facility] Platelet Count 262 150 - 400 K/uL 05/09/2025 8:03 AM [facility] Nucleated RBC 0 <=0 #/100 WBC 05/09/2025 8:03 AM [facility] Neutrophil 79.6(H) 34.0 - 71.0 % 05/09/2025 8:03 AM [facility] Lymphocyte 12.9(L) 19.0 - 53.0 % 05/09/2025 8:03 AM [facility] Monocyte 6.3 5.0 - 13.0 % 05/09/2025 8:03 AM [facility] Eosinophil 0.0(L) 1.0 - 7.0 % 05/09/2025 8:03 AM [facility] Basophil 0.3 0.0 - 1.0 % 05/09/2025 8:03 AM [facility] Immature Granulocyte (Villard, Myelo, Promyelocyte) 0.9(H) 0.0 - 0.6 % 05/09/2025 8:03 AM [facility] Absolute Neutrophil Count 9.33(H) 1.60 - 6.10 K/uL 05/09/2025 8:03 AM [facility] Absolute Lymphocyte Count 1.51 1.20 - 3.70 K/uL 05/09/2025 8:03 AM T [facility] Absolute Monocyte Count 0.74 0.20 - 0.80 K/uL 05/09/2025 8:03 AM EDT [facility] Absolute Eosinophil Count 0.00(L) 0.04 - 0.54 K/uL 05/09/2025 8:03 AM EDT [facility] Absolute Basophil Count 0.04 0.01 - 0.08 K/uL 05/09/2025 8:03 AM EDT [facility] Absolute Immature Granulocyte (Villard, Myelo, Promyelocyte) 0.11(H) 0.00 - 0.09 K/uL 05/09/2025 8:03 AM EDT [facility] Blood PERIPHERAL BLOOD SPECIMEN / Unknown Venipuncture / Unknown 05/09/2025 7:24 AM EDT 05/09/2025 7:29 AM EDT us Mohinder Johnson MD LAB BLOOD ORDERABLES Final Res ult [facility] [address] [place] [address], * (ABNORMAL) CBC and Differential (05/08/2025 6:53 AM EDT) WBC 12.58(H) 4.00 - 10.00 K/uL 05/08/2025 7:39 AM EDT [facility] RBC 3.83(L) 4.60 - 6.10 M/uL 05/08/2025 7:39 AM EDT [facility] Hemoglobin 11.9(L) 13.7 - 17.5 g/dL 05/08/2025 7:39 AM EDT [facility] Hematocrit 37.0(L) 40.0 - 51.0 % 05/08/2025 7:39 AM EDT [facility] MCV 97 82 - 98 fL 05/08/2025 7:39 AM EDT [facility] MCH 31.1 26.0 - 32.0 pg 05/08/2025 7:39 AM EDT [facility] MCHC 32.2 32.0 - 37.0 g/dL 05/08/2025 7:39 AM [facility] RDW 12.9 10.5 - 15.5 % 05/08/2025 7:39 AM [facility] RDW-SD 45.8 35.1 - 46.3 fL 05/08/2025 7:39 AM [facility] Platelet Count 263 150 - 400 K/uL 05/08/2025 7:39 AM [facility] Nucleated RBC 0 <=0 #/100 WBC 05/08/2025 7:39 AM [facility] Neutrophil 80.4(H) 34.0 - 71.0 % 05/08/2025 7:39 AM [facility] Lymphocyte 11.9(L) 19.0 - 53.0 % 05/08/2025 7:39 AM [facility] Monocyte 6.5 5.0 - 13.0 % 05/08/2025 7:39 AM [facility] Eosinophil 0.0(L) 1.0 - 7.0 % 05/08/2025 7:39 AM [facility] Basophil 0.2 0.0 - 1.0 % 05/08/2025 7:39 AM [facility] Immature Granulocyte (Villard, Myelo, Promyelocyte) 1.0(H) 0.0 - 0.6 % 05/08/2025 7:39 AM [facility] Absolute Neutrophil Count 10.12(H) 1.60 - 6.10 K/uL 05/08/2025 7:39 AM [facility] Absolute Lymphocyte Count 1.50 1.20 - 3.70 K/uL 05/08/2025 7:39 AM [facility] Absolute Monocyte Count 0.82(H) 0.20 - 0.80 K/uL 05/08/2025 7:39 AM [facility] Absolute Eosinophil Count 0.00(L) 0.04 - 0.54 K/uL 05/08/2025 7:39 AM [facility] Absolute Basophil Count 0.02 0.01 - 0.08 K/uL 05/08/2025 7:39 AM [facility] Absolute Immature Granulocyte (Villard, Myelo, Promyelocyte) 0.12(H) 0.00 - 0.09 K/uL 05/08/2025 7:39 AM EDT [facility] Blood PERIPHERAL BLOOD SPECIMEN / Unknown Venipuncture / Unknown 05/08/2025 6:53 AM EDT 05/08/2025 7:07 AM EDT us Bonifacio Agudelo MD LAB BLOOD ORDERABLES Final Resul t [facility] [address] [place] [address], [place] * XR Chest 1 VW Portable (05/07/2025 1:01 PM EDT) Anatomical Region Laterality Modality Chest Digital Radiogra phy 05/07/2025 2:17 PM EDT Impressions 05/07/2025 2:43 PM EDT No acute cardiopulmonary abnormalities. BY ELECTRONICALLY SIGNING THIS REPORT, I THE ATTENDING PHYSICIAN ATTEST THAT I HAVE REVIEWED THE IMAGES FOR THE ABOVE PROCEDURE(S) AND AGREE WITH THE FINDINGS DOCUMENTED. Calli Doe MD, electronically signed on May 07 2025 02:43PM Narrative 05/07/2025 2:43 PM EDT INDICATION: cough and wbc; TECHNIQUE: Portable supine AP chest x-ray COMPARISON: Portable upright AP chest x-ray from 03 May 2025. FINDINGS: Interval resolution of previously seen small patchy infiltrate in the right upper lung. No pleural effusion. No appreciable pneumothorax. Cardiomediastinal silhouette is normal. Procedure Note Austin Doe MD - 05/07/2025 INDICATION: cough and wbc; TECHNIQUE: Portable supine AP chest x-ray COMPARISON: Portable upright AP chest x-ray from 03 May 2025. FINDINGS: Interval resolution of previously seen small patchy infiltrate in theright upper lung. No pleural effusion. No appreciable pneumothorax.Cardiomediastinal silhouette is normal. IMPRESSION: No acute cardiopulmonary abnormalities. BY ELECTRONICALLY SIGNING THIS REPORT, I THE ATTENDING PHYSICIAN ATTESTTHAT I HAVE REVIEWED THE IMAGES FOR THE ABOVE PROCEDURE(S) AND AGREE WITHTHE FINDINGS DOCUMENTED. Calli Doe MD, electronically signed on May 07 2025 02:43PM Mohinder Johnson MD IMG DIAGNOSTIC IMAGING ORDERAB LES Final Result * Respiratory Viral, Molecular (05/07/2025 12:20 PM EDT) Pathologist [facility] Coronavirus SARS-CoV-2 Negative Negative 05/07/2025 6:15 PM EDT [facility] Influenza A, PCR Negative Negative 05/07/20 6:15 PM EDT [facility] Influenza B, PCR Negative Negative 05/07/20 6:15 PM EDT [facility] RSV by PCR Negative Negative 05/07/2025 6:15 PM EDT [facility] Respiratory SWAB OF INTERNAL NOSE / Unknown Collection / Unknown 05/07/2025 12:20 PM EDT 05/07/2025 12:33 PM EDT Narrative [facility] - 05/07/2025 6:15 PM EDT Test performed with Alinity m Resp-4-Plex PCR assay, which has received emergency use authorization (EUA) by the U.S.Food and Drug Administration. Test performance verified by [facility] [address] [place] [address]. [address]. Dunia Adames MD. CLIA [id number], CAP [id number] . Mohinder Johnson MD BODY FLUIDS AND STOOLS ORDERAB LES Final Result [facility] [address] [place] [address], * (ABNORMAL) CBC and Differential (05/07/2025 6:37 AM EDT) Pathologist [facility] WBC 16.33(H) 4.00 - 10.00 K/uL 05/07/2025 7:42 AM EDT [facility] RBC 4.29(L) 4.60 - 6.10 M/uL 05/07/2025 7:42 AM EDT [facility] Hemoglobin 13.5(L) 13.7 - 17.5 g/dL 05/07/2025 7:42 AM EDT [facility] Hematocrit 41.3 40.0 - 51.0 % 05/07/2025 7:42 AM [facility] MCV 96 82 - 98 fL 05/07/2025 7:42 AM [facility] MCH 31.5 26.0 - 32.0 pg 05/07/2025 7:42 AM [facility] MCHC 32.7 32.0 - 37.0 g/dL 05/07/2025 7:42 AM [facility] RDW 13.0 10.5 - 15.5 % 05/07/2025 7:42 AM [facility] RDW-SD 45.8 35.1 - 46.3 fL 05/07/2025 7:42 AM [facility] Platelet Count 306 150 - 400 K/uL 05/07/2025 7:42 AM [facility] Nucleated RBC 0 <=0 #/100 WBC 05/07/2025 7:42 AM [facility] Neutrophil 84.5(H) 34.0 - 71.0 % 05/07/2025 7:42 AM [facility] Lymphocyte 7.8(L) 19.0 - 53.0 % 05/07/2025 7:42 AM [facility] Monocyte 6.4 5.0 - 13.0 % 05/07/2025 7:42 AM [facility] Eosinophil 0.1(L) 1.0 - 7.0 % 05/07/2025 7:42 AM [facility] Basophil 0.4 0.0 - 1.0 % 05/07/2025 7:42 AM [facility] Immature Granulocyte (Villard, Myelo, Promyelocyte) 0.8(H) 0.0 - 0.6 % 05/07/2025 7:42 AM [facility] Absolute Neutrophil Count 13.81(H) 1.60 - 6.10 K/uL 05/07/2025 7:42 AM [facility] Absolute Lymphocyte Count 1.27 1.20 - 3.70 K/uL 05/07/2025 7:42 AM [facility] Absolute Monocyte Count 1.04(H) 0.20 - 0.80 K/uL 05/07/2025 7:42 AM EDT [facility] Absolute Eosinophil Count 0.02(L) 0.04 - 0.54 K/uL 05/07/2025 7:42 AM EDT [facility] Absolute Basophil Count 0.06 0.01 - 0.08 K/uL 05/07/2025 7:42 AM EDT [facility] Absolute Immature Granulocyte (Villard, Myelo, Promyelocyte) 0.13(H) 0.00 - 0.09 K/uL 05/07/2025 7:42 AM EDT [facility] Blood PERIPHERAL BLOOD SPECIMEN / Unknown Venipuncture / Unknown 05/07/2025 6:37 AM EDT 05/07/2025 6:55 AM EDT us Mohinder Johnson MD LAB BLOOD ORDERABLES Final Res ult [facility] [address] [place] [address], * ECG 12 lead (05/06/2025 3:43 PM EDT) Ventricular Heart Rate 86 BPM EKG BUR MUSE Atrial Heart Rate 86 BPM EKG [facility] MUSE LA Interval 152 ms EKG B[facility] MUSE QRSD Interval 122 ms EKG B[facility] MUSE QT Interval 430 ms EKG B[facility] MUSE QTC Interval 514 ms EKG BUR MUSE P Mathews 59 degrees EKG BUR MUSE R Mathews -29 degrees EKG BUR MUSE T Wave Mathews 41 degrees EKG BUR MUSE 05/06/2025 3:41 PM EDT 05/08/2025 8:55 PM EDT Narrative EKG BUR MUSE - 05/08/2025 8:55 PM EDT Normal sinus rhythm Left ventricular hypertrophy with QRS widening Abnormal ECG When compared with ECG of 30-Apr-2025 10:13, No significant change was found Procedure Note Raleigh Villegas MD - 05/08/2025 Normal sinus rhythm Left ventricular hypertrophy with QRS widening Abnormal ECG When compared with ECG of 30-Apr-2025 10:13, No significant change was found us Mohinder Johnson MD ECG ORDERABLES Final Result EKG KATH [address] [address] * (ABNORMAL) CBC and Differential (05/06/2025 3:23 PM EDT) WBC 11.93(H) 4.00 - 10.00 K/uL 05/06/2025 4:03 PM EDT [facility] RBC 3.78(L) 4.60 - 6.10 M/uL 05/06/2025 4:03 PM EDT [facility] Hemoglobin 12.0(L) 13.7 - 17.5 g/dL 05/06/2025 4:03 PM EDT [facility] Hematocrit 36.5(L) 40.0 - 51.0 % 05/06/2025 4:03 PM EDT [facility] MCV 97 82 - 98 fL 05/06/2025 4:03 PM EDT [facility] MCH 31.7 26.0 - 32.0 pg 05/06/2025 4:03 PM EDT [facility] MCHC 32.9 32.0 - 37.0 g/dL 05/06/2025 4:03 PM EDT [facility] RDW 12.8 10.5 - 15.5 % 05/06/2025 4:03 PM EDT [facility] RDW-SD 45.0 35.1 - 46.3 fL 05/06/2025 4:03 PM EDT [facility] Platelet Count 294 150 - 400 K/uL 05/06/2025 4:03 PM EDT [facility] Nucleated RBC 0 <=0 #/100 WBC 05/06/2025 4:03 PM EDT [facility] Neutrophil 78.0(H) 34.0 - 71.0 % 05/06/2025 4:03 PM EDT [facility] Lymphocyte 13.7(L) 19.0 - 53.0 % 05/06/2025 4:03 PM EDT [facility] Monocyte 6.7 5.0 - 13.0 % 05/06/2025 4:03 PM EDT [facility] Eosinophil 0.0(L) 1.0 - 7.0 % 05/06/2025 4:03 PM EDT [facility] Basophil 0.3 0.0 - 1.0 % 05/06/2025 4:03 PM EDT [facility] Immature Granulocyte (Villard, Myelo, Promyelocyte) 1.3(H) 0.0 - 0.6 % 05/06/2025 4:03 PM EDT [facility] Absolute Neutrophil Count 9.29(H) 1.60 - 6.10 K/uL 05/06/2025 4:03 PM EDT [facility] Absolute Lymphocyte Count 1.64 1.20 - 3.70 K/uL 05/06/2025 4:03 PM EDT [facility] Absolute Monocyte Count 0.80 0.20 - 0.80 K/uL 05/06/2025 4:03 PM EDT [facility] Absolute Eosinophil Count 0.00(L) 0.04 - 0.54 K/uL 05/06/2025 4:03 PM EDT [facility] Absolute Basophil Count 0.04 0.01 - 0.08 K/uL 05/06/2025 4:03 PM EDT [facility] Absolute Immature Granulocyte (Villard, Myelo, Promyelocyte) 0.16(H) 0.00 - 0.09 K/uL 05/06/2025 4:03 PM EDT [facility] Blood PERIPHERAL BLOOD SPECIMEN / Unknown Venipuncture / Unknown 05/06/2025 3:23 PM EDT 05/06/2025 3:26 PM EDT us Mohinder Johnson MD LAB BLOOD ORDERABLES Final Res ult [facility] [address] [place] [address], [place] * (ABNORMAL) CBC and Differential (05/05/2025 6:35 AM EDT) WBC 11.60(H) 4.00 - 10.00 K/uL 05/05/2025 7:59 AM EDT [facility] RBC 3.95(L) 4.60 - 6.10 M/uL 05/05/2025 7:59 AM T [facility] Hemoglobin 12.5(L) 13.7 - 17.5 g/dL 05/05/2025 7:59 AM T [facility] Hematocrit 38.0(L) 40.0 - 51.0 % 05/05/2025 7:59 AM T [facility] MCV 96 82 - 98 fL 05/05/2025 7:59 AM T [facility] MCH 31.6 26.0 - 32.0 pg 05/05/2025 7:59 AM T [facility] MCHC 32.9 32.0 - 37.0 g/dL 05/05/2025 7:59 AM T [facility] RDW 12.8 10.5 - 15.5 % 05/05/2025 7:59 AM [facility] RDW-SD 45.6 35.1 - 46.3 fL 05/05/2025 7:59 AM T [facility] Platelet Count 298 150 - 400 K/uL 05/05/2025 7:59 AM T [facility] Nucleated RBC 0 <=0 #/100 WBC 05/05/2025 7:59 AM [facility] Neutrophil 75.0(H) 34.0 - 71.0 % 05/05/2025 7:59 AM T [facility] Lymphocyte 15.4(L) 19.0 - 53.0 % 05/05/2025 7:59 AM EDT [facility] Monocyte 7.8 5.0 - 13.0 % 05/05/2025 7:59 AM T [facility] Eosinophil 0.0(L) 1.0 - 7.0 % 05/05/2025 7:59 AM T [facility] Basophil 0.5 0.0 - 1.0 % 05/05/2025 7:59 AM EDT [facility] Immature Granulocyte (Villard, Myelo, Promyelocyte) 1.3(H) 0.0 - 0.6 % 05/05/2025 7:59 AM EDT [facility] Absolute Neutrophil Count 8.69(H) 1.60 - 6.10 K/uL 05/05/2025 7:59 AM EDT [facility] Absolute Lymphocyte Count 1.79 1.20 - 3.70 K/uL 05/05/2025 7:59 AM EDT [facility] Absolute Monocyte Count 0.91(H) 0.20 - 0.80 K/uL 05/05/2025 7:59 AM EDT [facility] Absolute Eosinophil Count 0.00(L) 0.04 - 0.54 K/uL 05/05/2025 7:59 AM EDT [facility] Absolute Basophil Count 0.06 0.01 - 0.08 K/uL 05/05/2025 7:59 AM EDT [facility] Absolute Immature Granulocyte (Villard, Myelo, Promyelocyte) 0.15(H) 0.00 - 0.09 K/uL 05/05/2025 7:59 AM EDT [facility] Blood PERIPHERAL BLOOD SPECIMEN / Unknown Venipuncture / Unknown 05/05/2025 6:35 AM EDT 05/05/2025 7:11 AM EDT us Mohinder Johnson MD LAB BLOOD ORDERABLES Final Res ult [facility] [address] [place] [address], [place] * XR Chest 1 VW Portable (05/03/2025 11:00 AM EDT) Anatomical Region Laterality Modality Chest Digital Radiogra phy 05/03/2025 2:15 PM EDT Narrative 05/03/2025 2:14 PM EDT EXAMINATION: XR CHEST 1 VW PORTABLE INDICATION: 69 y.o. with worsening cough, c/f PNA?; TECHNIQUE: Bedside AP upright exam at 10:21 COMPARISON: 22 April 2025 FINDINGS: There is a small patchy infiltrate in the right upper lung, which is new in the interval, worrisome for an early infiltrate. The heart size and mediastinal contours are within normal limits. There is no pulmonary vascular congestion, pleural effusion, or pneumothorax. 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 Demetra Crisostomo MD, electronically signed on May 03 2025 02:14PM Procedure Note Demetra Crisostomo MD - 05/03/2025 EXAMINATION: XR CHEST 1 VW PORTABLE INDICATION: 69 y.o. with worsening cough, c/f PNA?; TECHNIQUE: Bedside AP upright exam at 10:21 COMPARISON: 22 April 2025 FINDINGS: There is a small patchy infiltrate in the right upper lung, which is newin the interval, worrisome for an early infiltrate. The heart size andmediastinal contours are within normal limits. There is no pulmonaryvascular congestion, pleural effusion, or pneumothorax. 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 Demetra Crisostomo MD, electronically signed on May 03 2025 02:14PM Mildred Srinivasan MD IMG DIAGNOSTIC IMAGING ORDERABL ES Final Result * XR Abdomen Portable (05/02/2025 5:10 PM EDT) Anatomical Region Laterality Modality Abdomen Digital Radiogra phy 05/02/2025 5:42 PM EDT Impressions 05/02/2025 5:41 PM EDT Similar severe colonic stool burden with rectal stool ball, not substantially changed compared to previous radiographs. Supine assessment limits detection of air, however there is no gross pneumoperitoneum. Gastrostomy tube is unchanged in position, projecting over the left upper quadrant. Spinal fusion device in the lower lumbar vertebra. Surgical clips noted over the left pelvis. Roger Mane MD, electronically signed on May 02 2025 05:41PM Narrative 05/02/2025 5:41 PM EDT INDICATION: 69 y.o. with severe constipation, assess stool burden; TECHNIQUE: Supine abdominal radiographs COMPARISON: 30 April 2025 Procedure Note Roger Mane MD - 05/02/2025 INDICATION: 69 y.o. with severe constipation, assess stool burden; TECHNIQUE: Supine abdominal radiographs COMPARISON: 30 April 2025 IMPRESSION: Similar severe colonic stool burden with rectal stool ball, notsubstantially changed compared to previous radiographs. Supine assessmentlimits detection of air, however there is no gross pneumoperitoneum.Gastrostomy tube is unchanged in position, projecting over the left upper quadrant. Spinal fusion device in thelower lumbar vertebra. Surgical clips noted over the left pelvis. Roger Mane MD, electronically signed on May 02 2025 05:41PM us Mildred Srinivasan MD IMG DIAGNOSTIC IMAGING ORDERABL ES Final Result * EEG 24 Hour Continuous Video EEG (LTM) (05/01/2025 6:30 AM EDT) Anatomical Region Laterality Modality EEG Impressions 05/04/2025 9:47 AM EDT Abnormal EEG due to - intermittent background 5-7Hz theta slowing while awake Note on seizure risk / [id number] scores: Interpretation of scores the risk of seizures in the next 72 hours for each Day 1 score is as follows: Score = 0: risk <5%.; time needed< 4h * Score = 1: risk = 12%; time needed: 12h * Score >1: risk >25%; time needed: 24h * * Duration of EEG monitoring needed for risk to decrease to <5%. Assessment of the Validity of the [id number] Score for Inpatient Seizure Risk Prediction. DEB Neurol. 2020 Jan 1;77(4):500-507. TECHNICAL DETAILS: This is a digital video and EEG study. 23 scalp electrodes are placed according to 10-20 system, with T1, T2, and EOG and ECG electrodes. Quantitative EEG analysis with software and automated spike and seizure detection algorithms were used to assist with visual analysis. ATTENDING PHYSICIAN ATTESTATION By signing this report, I attest that I have personally reviewed and interpreted this study, and this report represents my findings and conclusions. Narrative 05/04/2025 9:47 AM EDT HISTORY: 69 y.o.male, presenting with: HTN, CKD, schizoaffective disorder, and drug-induced parkinsonism, who presented with unresponsiveness, asphaia, and possible left facial droop. EEG requested to rule out seizures. RELEVANT MEDICATIONS: Clozapine, Trazodone, Gabapentin, Bupropion REPORTING PERIOD: 0000 to 1416 on 05/01 BACKGROUND: - symmetric 8 Hz background rhythm, reactive to eye opening and closure, preserved AP gradient. - occasional intermixed diffuse polymorphic 5-7 Hz theta slowing. SLEEP: None SEIZURES: None. RHYTHMIC & PERIODIC PATTERNS: None SPORADIC EPILEPTIFORM DISCHARGES: None EVENTS: None ECG: Unremarkable [id number] score (on day 1 of EEG): 0 us Mildred Srinivasan MD NEUROLOGY ORDERABLES Final Resu lt * (ABNORMAL) CBC and Differential (05/01/2025 6:23 AM EDT) WBC 11.29(H) 4.00 - 10.00 K/uL 05/01/2025 7:27 AM EDT [facility] RBC 3.86(L) 4.60 - 6.10 M/uL 05/01/2025 7:27 AM EDT [facility] Hemoglobin 12.0(L) 13.7 - 17.5 g/dL 05/01/2025 7:27 AM EDT [facility] Hematocrit 36.4(L) 40.0 - 51.0 % 05/01/2025 7:27 AM [facility] MCV 94 82 - 98 fL 05/01/2025 7:27 AM [facility] MCH 31.1 26.0 - 32.0 pg 05/01/2025 7:27 AM [facility] MCHC 33.0 32.0 - 37.0 g/dL 05/01/2025 7:27 AM [facility] RDW 13.0 10.5 - 15.5 % 05/01/2025 7:27 AM [facility] RDW-SD 44.9 35.1 - 46.3 fL 05/01/2025 7:27 AM [facility] Platelet Count 292 150 - 400 K/uL 05/01/2025 7:27 AM [facility] Nucleated RBC 0 <=0 #/100 WBC 05/01/2025 7:27 AM [facility] Neutrophil 79.9(H) 34.0 - 71.0 % 05/01/2025 7:27 AM [facility] Lymphocyte 11.9(L) 19.0 - 53.0 % 05/01/2025 7:27 AM [facility] Monocyte 7.3 5.0 - 13.0 % 05/01/2025 7:27 AM [facility] Eosinophil 0.0(L) 1.0 - 7.0 % 05/01/2025 7:27 AM [facility] Basophil 0.4 0.0 - 1.0 % 05/01/2025 7:27 AM [facility] Immature Granulocyte (Villard, Myelo, Promyelocyte) 0.5 0.0 - 0.6 % 05/01/2025 7:27 AM [facility] Absolute Neutrophil Count 9.03(H) 1.60 - 6.10 K/uL 05/01/2025 7:27 AM [facility] Absolute Lymphocyte Count 1.34 1.20 - 3.70 K/uL 05/01/2025 7:27 AM [facility] Absolute Monocyte Count 0.82(H) 0.20 - 0.80 K/uL 05/01/2025 7:27 AM [facility] Absolute Eosinophil Count 0.00(L) 0.04 - 0.54 K/uL 05/01/2025 7:27 AM EDT [facility] Absolute Basophil Count 0.04 0.01 - 0.08 K/uL 05/01/2025 7:27 AM EDT [facility] Absolute Immature Granulocyte (Villard, Myelo, Promyelocyte) 0.06 0.00 - 0.09 K/uL 05/01/2025 7:27 AM EDT [facility] Blood PERIPHERAL BLOOD SPECIMEN / Unknown Venipuncture / Unknown 05/01/2025 6:23 AM EDT 05/01/2025 7:12 AM EDT us Bonifacio Agudelo MD LAB BLOOD ORDERABLES Final Resul t [facility] [address] [place] [address], [place] * EEG 24 Hour Continuous Video EEG (LTM) (04/30/2025 2:04 PM EDT) Anatomical Region Laterality Modality EEG Impressions 05/01/2025 9:40 AM EDT Abnormal EEG due to - intermittent background 5-7Hz theta slowing while awake Note on seizure risk / [id number] scores: Interpretation of scores the risk of seizures in the next 72 hours for each Day 1 score is as follows: Score = 0: risk <5%.; time needed< 4h * Score = 1: risk = 12%; time needed: 12h * Score >1: risk >25%; time needed: 24h * * Duration of EEG monitoring needed for risk to decrease to <5%. Assessment of the Validity of the [id number] Score for Inpatient Seizure Risk Prediction. DEB Neurol. 2020 Jan 20;77(4):500-507. TECHNICAL DETAILS: This is a digital video and EEG study. 23 scalp electrodes are placed according to 10-20 system, with T1, T2, and EOG and ECG electrodes. Quantitative EEG analysis with software and automated spike and seizure detection algorithms were used to assist with visual analysis. ATTENDING PHYSICIAN ATTESTATION By signing this report, I attest that I have personally reviewed and interpreted this study, and this report represents my findings and conclusions. Narrative 05/01/2025 9:40 AM EDT HISTORY: 69 y.o.male, presenting with: HTN, CKD, schizoaffective disorder, and drug-induced parkinsonism, who presented with unresponsiveness, asphaia, and possible left facial droop. EEG requested to rule out seizures. RELEVANT MEDICATIONS: Clozapine, Trazodone, Gabapentin, Bupropion REPORTING PERIOD: 1337 to 2400 on 04/30 BACKGROUND: - symmetric 8 Hz background rhythm, reactive to eye opening and closure, preserved AP gradient. - occasional intermixed diffuse polymorphic 5-7 Hz theta slowing. SLEEP: None SEIZURES: None. RHYTHMIC & PERIODIC PATTERNS: None SPORADIC EPILEPTIFORM DISCHARGES: None EVENTS: None ECG: Unremarkable [id number] score (on day 1 of EEG): 0 us Mildred Srinivasan MD NEUROLOGY ORDERABLES Final Resu lt * (ABNORMAL) Urinalysis with Sediment (04/30/2025 12:21 PM EDT) Color, Urine Yellow Yellow, Colorless, Straw 04/30/2025 12:40 PM EDT [facility] Clarity, Urine Hazy(A) Clear 04/30/2025 12:40 PM EDT [facility] pH, Urine 7.0 5.0 - 8.0 04/30/2025 12:40 PM EDT [facility] Protein, Urine Negative Negative 04/30/2025 12:40 PM EDT [facility] Glucose, Urine Negative Negative 04/30/2025 12:40 PM EDT [facility] Ketone, Urine Negative Negative 04/30/2025 12:40 PM EDT [facility] Bilirubin, Urine Negative Negative 04/30/2025 12:40 PM EDT [facility] Urobilinogen, Urine Normal 0.2-1.0 mg/dL 04/30/2025 12:40 PM EDT [facility] Blood, Urine Negative Negative 04/30/2025 12:40 PM EDT [facility] Leukocyte Esterase, Urine Negative Negative 04/30/2025 12:40 PM EDT [facility] Nitrite, Urine Negative Negative 04/30/2025 12:40 PM EDT [facility] Specific Tynan, Urine 1.016 1.001 - 1.050 04/30/2025 12:40 PM EDT [facility] White Blood Cells, Urine <1 0 - 5 /hpf 04/30/2025 12:40 PM EDT [facility] Red Blood Cells, Urine <1 0 - 2 /hpf 04/30/2025 12:40 PM EDT [facility] Urine MID-STREAM URINE SPECIMEN / Unknown Collection / Unknown 04/30/2025 12:21 PM EDT 04/30/2025 12:35 PM EDT us Mildred Srinivasan MD URINE ORDERABLES Final Result [facility] [address] [place] [address], [place] * XR Abdomen 1 VW (04/30/2025 11:38 AM EDT) Anatomical Region Laterality Modality Abdomen Digital Radiogra phy 04/30/2025 1:58 PM EDT Impressions 04/30/2025 2:42 PM EDT Severe colonic stool burden with large rectal stool ball BY ELECTRONICALLY SIGNING THIS REPORT, I THE ATTENDING PHYSICIAN ATTEST THAT I HAVE REVIEWED THE IMAGES FOR THE ABOVE PROCEDURE(S) AND AGREE WITH THE FINDINGS DOCUMENTED. Twan Cano MD, electronically signed on Apr 30 2025 02:42PM Narrative 04/30/2025 2:42 PM EDT INDICATION: Abdominal pain, stool burden; TECHNIQUE: Supine abdominal radiograph was obtained. COMPARISON: Abdominal radiograph dated 27 April 2025. FINDINGS: Severe colonic stool burden with rectal stool ball. There are no abnormally dilated loops of large or small bowel. Supine assessment limits detection for free air; there is no gross pneumoperitoneum. Spinal fusion screws in L4-L5, with opacification overlying intervertebral space. Surgical clips over left pelvis. Procedure Note Amber Cano MD - 04/30/2025 INDICATION: Abdominal pain, stool burden; TECHNIQUE: Supine abdominal radiograph was obtained. COMPARISON: Abdominal radiograph dated 27 April 2025. FINDINGS: Severe colonic stool burden with rectal stool ball. There are noabnormally dilated loops of large or small bowel. Supine assessment limits detection for free air; there is no grosspneumoperitoneum. Spinal fusion screws in L4-L5, with opacification overlying intervertebralspace. Surgical clips over left pelvis. IMPRESSION: Severe colonic stool burden with large rectal stool ball BY ELECTRONICALLY SIGNING THIS REPORT, I THE ATTENDING PHYSICIAN ATTESTTHAT I HAVE REVIEWED THE IMAGES FOR THE ABOVE PROCEDURE(S) AND AGREE WITHTHE FINDINGS DOCUMENTED. Twan Cano MD, electronically signed on Apr 30 2025 02:42PM Mildred Srinivasan MD IMG DIAGNOSTIC IMAGING ORDERABL ES Final Result * ECG 12 lead (04/30/2025 10:20 AM EDT) Ventricular Heart Rate 87 BPM EKG BUR MUSE Atrial Heart Rate 87 BPM EKG BUR MUSE LA Interval 148 ms EKG BUR MUSE QRSD Interval 116 ms EKG BUR MUSE QT Interval 426 ms EKG BUR MUSE QTC Interval 512 ms EKG BUR MUSE P Mathews 50 degrees EKG BUR MUSE R Mathews -32 degrees EKG BUR MUSE T Wave Mathews 34 degrees EKG BUR MUSE 04/30/2025 10:1 3 AM EDT 04/30/2025 9:49 PM EDT Narrative EKG KATH MUSE - 04/30/2025 9:49 PM EDT Normal sinus rhythm Left axis deviation Left ventricular hypertrophy with QRS widening Prolonged QT interval Abnormal ECG When compared with ECG of 29-Apr-2025 10:37, No significant change was found Procedure Note Dragan Krishnan MD - 04/30/2025 Normal sinus rhythm Left axis deviation Left ventricular hypertrophy with QRS widening Prolonged QT interval Abnormal ECG When compared with ECG of 29-Apr-2025 10:37, No significant change was found Mildred Srinivasan MD ECG ORDERABLES Final Result Performing Organization Address City/[facility]/ZIP Co de Phone Number EKG KATH MUSE [address] [place] [phone] * (ABNORMAL) D-dimer (04/30/2025 10:14 AM EDT) [facility] D-Dimer 605(H) <=500 ng/mL FEU 04/30/2025 10:37 AM EDT [facility] Comment:In ambulatory patien ts with low pre-test probability (Wells Criteria); D-Dimer <500 can be used to exclude venous thomboembolic disease. Blood PERIPHERAL BLOOD SPECIMEN / Unknown Venipuncture / Unknown 04/30/2025 10:14 AM EDT 04/30/2025 10:20 AM EDT Mildred Srinivasan MD LAB BLOOD ORDERABLES Final Resu lt [facility] [address] [place] [address], [place] * Phosphorus (04/30/2025 10:10 AM EDT) [facility] Phosphorus 3.0 2.7 - 4.5 mg/dL 04/30/2025 11:07 AM EDT [facility] Blood PERIPHERAL BLOOD SPECIMEN / Unknown Venipuncture / Unknown 04/30/2025 10:10 AM EDT 04/30/2025 10:20 AM EDT Mildred Srinivasan MD LAB BLOOD ORDERABLES Final Resu lt Performing Organization Address City/[facility]/ZIP Co de Phone Number [facility] [address] [place] [address], [place] * Magnesium (04/30/2025 10:10 AM EDT) Magnesium, Blood 2.3 1.6 - 2.6 mg/dL 04/30/2025 11:07 AM EDT [facility] Blood PERIPHERAL BLOOD SPECIMEN / Unknown Venipuncture / Unknown 04/30/2025 10:10 AM EDT 04/30/2025 10:20 AM EDT Mildred Srinivasan MD LAB BLOOD ORDERABLES Final Resu lt Performing Organization Address City/[facility]/ZIP Co de Phone Number [facility] [address] [place] [address], [place] * (ABNORMAL) Basic Metabolic Panel (04/30/2025 10:10 AM EDT) Sodium 140 135 - 147 mmol/L 04/30/2025 11:07 AM EDT [facility] Potassium 4.0 3.5 - 5.4 mmol/L 04/30/2025 11:07 AM EDT [facility] Chloride 103 96 - 108 mmol/L 04/30/2025 11:07 AM EDT [facility] Total CO2/Bicarbonat e 27 22 - 32 mmol/L 04/30/2025 11:07 AM EDT [facility] Anion Gap 10 10 - 18 mmol/L 04/30/2025 11:07 AM EDT [facility] BUN 28(H) 6 - 20 mg/dL 04/30/2025 11:07 AM EDT [facility] Creatinine, Blood 0.90 0.50 - 1.20 mg/dL 04/30/2025 11:07 AM EDT [facility] Glucose, Blood 149(H) 70 - 100 mg/dL 04/30/2025 11:07 AM EDT [facility] Calcium 9.3 8.4 - 10.3 mg/dL 04/30/2025 11:07 AM EDT [facility] Estimated GFR(CKD-EPI) 94 mL/min/BSA 04/30/2025 11:07 AM EDT [facility] Blood PERIPHERAL BLOOD SPECIMEN / Unknown Venipuncture / Unknown 04/30/2025 10:10 AM EDT 04/30/2025 10:20 AM EDT us Mildred Srinivasan MD LAB BLOOD ORDERABLES Final Resu lt [facility] [address] [place] [address], [place] * (ABNORMAL) Hepatic Function Panel (04/30/2025 10:10 AM EDT) Total Protein 6.1(L) 6.4 - 8.3 g/dL 04/30/2025 11:07 AM EDT [facility] Albumin, Blood 3.3(L) 3.5 - 5.2 g/dL 04/30/2025 11:07 AM T [facility] Globulin Result 2.8 2.0 - 4.0 g/dL 04/30/2025 11:07 AM EDT [facility] Total Bilirubin 0.3 0.0 - 1.5 mg/dL 04/30/2025 11:07 AM EDT [facility] Direct Bilirubin 0.1 0.0 - 0.3 mg/dL 04/30/2025 11:07 AM EDT [facility] Alkaline Phosphatase 153(H) 40 - 130 U/L 04/30/2025 11:07 AM EDT [facility] AST (SGOT) 18 0 - 40 U/L 04/30/2025 11:07 AM EDT [facility] ALT (SGPT) <5 0 - 40 U/L 04/30/2025 11:07 AM EDT [facility] Blood PERIPHERAL BLOOD SPECIMEN / Unknown Venipuncture / Unknown 04/30/2025 10:10 AM EDT 04/30/2025 10:20 AM EDT Mildred Srinivasan MD LAB BLOOD ORDERABLES Final Resu lt [facility] [address] [place] [address], [place] * (ABNORMAL) CK (Creatine Kinase) (04/30/2025 10:10 AM EDT) Creatine Kinase Total (CK) 35(L) 47 - 322 U/L 04/30/2025 11:07 AM EDT [facility] Blood PERIPHERAL BLOOD SPECIMEN / Unknown Venipuncture / Unknown 04/30/2025 10:10 AM EDT 04/30/2025 10:20 AM EDT Mildred Srinivasan MD LAB BLOOD ORDERABLES Final Resu lt Performing Organization Address City/[facility]/ZIP Co de Phone Number [facility] [address] [place] [address], [place] * Lactate Dehydrogenase, Blood (04/30/2025 10:10 AM EDT) Lactate Dehydrogenase (LDH) 192 94 - 250 U/L 04/30/2025 11:07 AM EDT [facility] Blood PERIPHERAL BLOOD SPECIMEN / Unknown Venipuncture / Unknown 04/30/2025 10:10 AM EDT 04/30/2025 10:20 AM EDT Mildred Srinivasan MD LAB BLOOD ORDERABLES Final Resu lt [facility] [address] [place] [address], [place] * (ABNORMAL) CBC (04/30/2025 10:10 AM EDT) WBC 8.60 4.00 - 10.00 K/uL 04/30/2025 10:27 AM EDT [facility] RBC 4.04(L) 4.60 - 6.10 M/uL 04/30/2025 10:27 AM EDT [facility] Hemoglobin 12.7(L) 13.7 - 17.5 g/dL 04/30/2025 10:27 AM EDT [facility] Hematocrit 38.3(L) 40.0 - 51.0 % 04/30/2025 10:27 AM EDT [facility] MCV 95 82 - 98 fL 04/30/2025 10:27 AM EDT [facility] MCH 31.4 26.0 - 32.0 pg 04/30/2025 10:27 AM EDT [facility] MCHC 33.2 32.0 - 37.0 g/dL 04/30/2025 10:27 AM EDT [facility] RDW 13.0 10.5 - 15.5 % 04/30/2025 10:27 AM EDT [facility] RDW-SD 44.6 35.1 - 46.3 fL 04/30/2025 10:27 AM EDT [facility] Platelet Count 268 150 - 400 K/uL 04/30/2025 10:27 AM EDT [facility] Nucleated RBC 0 <=0 #/100 WBC 04/30/2025 10:27 AM T [facility] Blood PERIPHERAL BLOOD SPECIMEN / Unknown Venipuncture / Unknown 04/30/2025 10:10 AM EDT 04/30/2025 10:20 AM EDT us Mildred Srinivasan MD LAB BLOOD ORDERABLES Final Resu lt [facility] [address] [place] [address], * (ABNORMAL) POCT Glucose (04/30/2025 9:42 AM EDT) Glucose, POC 143(H) 70 - 100 mg/dL 04/30/2025 9:44 AM EDT [facility] Comment: @Serial Atomxm=[id number] @Technical Sales Specialist WI=[id number] Blood 04/30/2025 9:42 AM EDT 04/30/2025 9:44 AM EDT us Mildred Srinivasan MD POCT ORDERABLES - DEVICE Final Result Performing Organization Address City/[facility] Co de Phone Number [facility] [address] [place] [address], [place] * ECG 12 lead (04/29/2025 11:54 AM EDT) Ventricular Heart Rate 112 BPM EKG BUR MUSE Atrial Heart Rate 112 BPM EKG BUR MUSE LA Interval 156 ms EKG BUR MUSE QRSD Interval 102 ms EKG BUR MUSE QT Interval 358 ms EKG BUR MUSE QTC Interval 488 ms EKG BUR MUSE P Mathews 61 degrees EKG BUR MUSE R Mathews -35 degrees EKG BUR MUSE T Wave Mathews 50 degrees EKG BUR MUSE 04/29/2025 10:3 7 AM EDT 04/29/2025 2:47 PM EDT Narrative EKG BUR MUSE - 04/29/2025 2:48 PM EDT Sinus tachycardia Possible Intra-atrial conduction delay Left axis deviation Left ventricular hypertrophy Abnormal ECG When compared with ECG of 22-Apr-2025 11:27, No significant change was found Procedure Note José Miguel Kirkpatrick MD - 04/29/2025 Sinus tachycardia Possible Intra-atrial conduction delay Left axis deviation Left ventricular hypertrophy Abnormal ECG When compared with ECG of 22-Apr-2025 11:27, No significant change was found us Mildred Srinivasan MD ECG ORDERABLES Final Result Performing Organization Address City/[facility]/ZIP Co de Phone Number EKG BUR MUSE [address] [place] [id number] * (ABNORMAL) CBC and Differential (04/28/2025 4:56 AM EDT) WBC 11.11(H) 4.00 - 10.00 K/uL 04/28/2025 5:23 AM T [facility] RBC 3.99(L) 4.60 - 6.10 M/uL 04/28/2025 5:23 AM EDT [facility] Hemoglobin 12.4(L) 13.7 - 17.5 g/dL 04/28/2025 5:23 AM T [facility] Hematocrit 36.6(L) 40.0 - 51.0 % 04/28/2025 5:23 AM EDT [facility] MCV 92 82 - 98 fL 04/28/2025 5:23 AM EDT [facility] MCH 31.1 26.0 - 32.0 pg 04/28/2025 5:23 AM T [facility] MCHC 33.9 32.0 - 37.0 g/dL 04/28/2025 5:23 AM [facility] RDW 13.1 10.5 - 15.5 % 04/28/2025 5:23 AM T [facility] RDW-SD 43.9 35.1 - 46.3 fL 04/28/2025 5:23 AM [facility] Platelet Count 310 150 - 400 K/uL 04/28/2025 5:23 AM [facility] Nucleated RBC 0 <=0 #/100 WBC 04/28/2025 5:23 AM [facility] Neutrophil 74.6(H) 34.0 - 71.0 % 04/28/2025 5:23 AM [facility] Lymphocyte 13.6(L) 19.0 - 53.0 % 04/28/2025 5:23 AM T [facility] Monocyte 9.5 5.0 - 13.0 % 04/28/2025 5:23 AM T [facility] Eosinophil 0.0(L) 1.0 - 7.0 % 04/28/2025 5:23 AM T [facility] Basophil 0.4 0.0 - 1.0 % 04/28/2025 5:23 AM [facility] Immature Granulocyte (Villard, Myelo, Promyelocyte) 1.9(H) 0.0 - 0.6 % 04/28/2025 5:23 AM EDT [facility] Absolute Neutrophil Count 8.29(H) 1.60 - 6.10 K/uL 04/28/2025 5:23 AM EDT [facility] Absolute Lymphocyte Count 1.51 1.20 - 3.70 K/uL 04/28/2025 5:23 AM EDT [facility] Absolute Monocyte Count 1.06(H) 0.20 - 0.80 K/uL 04/28/2025 5:23 AM EDT [facility] Absolute Eosinophil Count 0.00(L) 0.04 - 0.54 K/uL 04/28/2025 5:23 AM EDT [facility] Absolute Basophil Count 0.04 0.01 - 0.08 K/uL 04/28/2025 5:23 AM EDT [facility] Absolute Immature Granulocyte (Villard, Myelo, Promyelocyte) 0.21(H) 0.00 - 0.09 K/uL 04/28/2025 5:23 AM EDT [facility] Blood PERIPHERAL BLOOD SPECIMEN / Unknown Venipuncture / Unknown 04/28/2025 4:56 AM EDT 04/28/2025 5:13 AM EDT us Mildred Srinivasan MD LAB BLOOD ORDERABLES Final Resu lt [facility] [address] [place] [address], * (ABNORMAL) Basic Metabolic Panel (04/28/2025 4:56 AM EDT) Sodium 137 135 - 147 mmol/L 04/28/2025 5:48 AM EDT [facility] Potassium 4.1 3.5 - 5.4 mmol/L 04/28/2025 5:48 AM EDT [facility] Chloride 101 96 - 108 mmol/L 04/28/2025 5:48 AM EDT [facility] Total CO2/Bicarbonat e 25 22 - 32 mmol/L 04/28/2025 5:48 AM EDT [facility] Anion Gap 11 10 - 18 mmol/L 04/28/2025 5:48 AM EDT [facility] BUN 30(H) 6 - 20 mg/dL 04/28/2025 5:48 AM EDT [facility] Creatinine, Blood 1.00 0.50 - 1.20 mg/dL 04/28/2025 5:48 AM EDT [facility] Glucose, Blood 119(H) 70 - 100 mg/dL 04/28/2025 5:48 AM EDT [facility] Calcium 9.3 8.4 - 10.3 mg/dL 04/28/2025 5:48 AM EDT [facility] Blood PERIPHERAL BLOOD SPECIMEN / Unknown Venipuncture / Unknown 04/28/2025 4:56 AM EDT 04/28/2025 5:14 AM EDT us Mildred Srinivasan MD LAB BLOOD ORDERABLES Final Resu lt [facility] [address] [place] [address], [place] * XR Abdomen 1 VW (04/27/2025 4:49 PM EDT) Anatomical Region Laterality Modality Abdomen Digital Radiogra phy 04/27/2025 5:06 PM EDT Impressions 04/28/2025 2:24 PM EDT Severe colonic stool burden. BY ELECTRONICALLY SIGNING THIS REPORT, I THE ATTENDING PHYSICIAN ATTEST THAT I HAVE REVIEWED THE IMAGES FOR THE ABOVE PROCEDURE(S) AND AGREE WITH THE FINDINGS DOCUMENTED. Twan Cano MD, electronically signed on Apr 28 2025 02:24PM Narrative 04/28/2025 2:24 PM EDT INDICATION: Abdominal distention and unclear bowel habits while on clozapine; TECHNIQUE: Supine abdominal radiograph was obtained. COMPARISON: XR abdomen portable dated 19 April 2025. FINDINGS: Severe stool burden throughout colon down to level of rectum, increased from prior study. The transverse colon is minimally dilated by the large colonic burden to 7.1 cm. Transverse colon distended by stool burden. No evidence of mechanical obstruction. There is no free intraperitoneal air. Osseous structures are unremarkable. There are no unexplained soft tissue Procedure Note Amber Cano MD - 04/28/2025 INDICATION: Abdominal distention and unclear bowel habits while on clozapine; TECHNIQUE: Supine abdominal radiograph was obtained. COMPARISON: XR abdomen portable dated 19 April 2025. FINDINGS: Severe stool burden throughout colon down to level of rectum, increasedfrom prior study. The transverse colon is minimally dilated by the largecolonic burden to 7.1 cm. Transverse colon distended by stool burden. Noevidence of mechanical obstruction. There is no free intraperitoneal air. Osseous structures are unremarkable. There are no unexplained soft tissue IMPRESSION: Severe colonic stool burden. BY ELECTRONICALLY SIGNING THIS REPORT, I THE ATTENDING PHYSICIAN ATTESTTHAT I HAVE REVIEWED THE IMAGES FOR THE ABOVE PROCEDURE(S) AND AGREE WITHTHE FINDINGS DOCUMENTED. Twan Cano MD, electronically signed on Apr 28 2025 02:24PM Mildred Srinivasan MD IMG DIAGNOSTIC IMAGING ORDERABL ES Final Result * (ABNORMAL) CBC (04/27/2025 1:13 PM EDT) WBC 15.51(H) 4.00 - 10.00 K/uL 04/27/2025 1:33 PM EDT [facility] RBC 4.44(L) 4.60 - 6.10 M/uL 04/27/2025 1:33 PM EDT [facility] Hemoglobin 14.0 13.7 - 17.5 g/dL 04/27/2025 1:33 PM EDT [facility] Hematocrit 40.9 40.0 - 51.0 % 04/27/2025 1:33 PM EDT [facility] MCV 92 82 - 98 fL 04/27/2025 1:33 PM EDT [facility] MCH 31.5 26.0 - 32.0 pg 04/27/2025 1:33 PM EDT [facility] MCHC 34.2 32.0 - 37.0 g/dL 04/27/2025 1:33 PM EDT [facility] RDW 13.1 10.5 - 15.5 % 04/27/2025 1:33 PM EDT [facility] RDW-SD 43.5 35.1 - 46.3 fL 04/27/2025 1:33 PM EDT [facility] Platelet Count 332 150 - 400 K/uL 04/27/2025 1:33 PM EDT [facility] Nucleated RBC 0 <=0 #/100 WBC 04/27/2025 1:33 PM EDT [facility] Blood PERIPHERAL BLOOD SPECIMEN / Unknown Venipuncture / Unknown 04/27/2025 1:13 PM EDT 04/27/2025 1:29 PM EDT us Mildred Srinivasan MD LAB BLOOD ORDERABLES Final Resu lt [facility] [address] [place] [address], * (ABNORMAL) Comprehensive Metabolic Panel (04/27/2025 1:13 PM EDT) Sodium 136 135 - 147 mmol/L 04/27/2025 2:03 PM EDT [facility] Potassium 4.0 3.5 - 5.4 mmol/L 04/27/2025 2:03 PM EDT [facility] Chloride 99 96 - 108 mmol/L 04/27/2025 2:03 PM EDT [facility] Total CO2/Bicarbonate 24 22 - 32 mmol/L 04/27/2025 2:03 PM EDT [facility] Anion Gap 13 10 - 18 mmol/L 04/27/2025 2:03 PM EDT [facility] BUN 31(H) 6 - 20 mg/dL 04/27/2025 2:03 PM EDT [facility] Creatinine, Blood 0.90 0.50 - 1.20 mg/dL 04/27/2025 2:03 PM EDT [facility] Glucose, Blood 132(H) 70 - 100 mg/dL 04/27/2025 2:03 PM EDT [facility] Calcium 9.4 8.4 - 10.3 mg/dL 04/27/2025 2:03 PM EDT [facility] Total Protein 6.7 6.4 - 8.3 g/dL 04/27/2025 2:03 PM EDT [facility] Albumin, Blood 3.8 3.5 - 5.2 g/dL 04/27/2025 2:03 PM EDT [facility] Globulin Result 2.9 2.0 - 4.0 g/dL 04/27/2025 2:03 PM EDT [facility] AST (SGOT) 21 0 - 40 U/L 04/27/2025 2:03 PM EDT [facility] ALT (SGPT) <5 0 - 40 U/L 04/27/2025 2:03 PM EDT [facility] Alkaline Phosphatase 177(H) 40 - 130 U/L 04/27/2025 2:03 PM EDT [facility] Total Bilirubin 0.4 0.0 - 1.5 mg/dL 04/27/2025 2:03 PM EDT [facility] Blood PERIPHERAL BLOOD SPECIMEN / Unknown Venipuncture / Unknown 04/27/2025 1:13 PM EDT 04/27/2025 1:29 PM EDT Mildred Srinivasan MD LAB BLOOD ORDERABLES Final Resu lt [facility] [address] [place] [address], [place] * (ABNORMAL) POCT Glucose (04/27/2025 11:49 AM EDT) Glucose, POC 136(H) 70 - 100 mg/dL 04/27/2025 11:50 AM EDT [facility] Comment: @Serial [id number] @Technical Sales Specialist [id number] Blood 04/27/2025 11:4 9 AM EDT 04/27/2025 11:50 AM EDT Mildred Srinivasan MD POCT ORDERABLES - DEVICE Final Result [facility] [address] [place] [address], [place] * EEG 24 Hour Continuous Video EEG (LTM) (04/24/2025 9:35 AM EDT) Anatomical Region Laterality Modality EEG Impressions 04/25/2025 12:15 PM EDT Normal EEG in the awake, drowsy, and asleep states. Note on seizure risk / [id number] scores: Interpretation of scores the risk of seizures in the next 72 hours for each Day 1 score is as follows: Score = 0: risk <5%.; time needed< 4h * Score = 1: risk = 12%; time needed: 12h * Score >1: risk >25%; time needed: 24h * * Duration of EEG monitoring needed for risk to decrease to <5%. Assessment of the Validity of the [id number] Score for Inpatient Seizure Risk Prediction. DEB Neurol. 2020 Jan 20;77(4):500-507. TECHNICAL DETAILS: This is a digital video and EEG study. 23 scalp electrodes are placed according to 10-20 system, with T1, T2, and EOG and ECG electrodes. Quantitative EEG analysis with software and automated spike and seizure detection algorithms were used to assist with visual analysis. ATTENDING PHYSICIAN ATTESTATION By signing this report, I attest that I have personally reviewed and interpreted this study, and this report represents my findings and conclusions. Narrative 04/25/2025 12:15 PM EDT HISTORY: 69-year-old man with episode of staring and unresponsiveness. ? evidence of epileptic seizures. RELEVANT MEDICATIONS: bupropion, carbidopa carbidopa-levodopa, clozapine, gabapentin REPORTING PERIOD: 00:00 to 14:31 on 04/24/2025 BACKGROUND: awake, there is well-formed 8.5Hz posterior dominant rhythm, reactive to eye closure, and normal anterior-posterior organization. SLEEP: there is generalized theta slowing during N1 sleep and increased slowing and sleep spindles during N2 sleep. SEIZURES: None. RHYTHMIC & PERIODIC PATTERNS: None SPORADIC EPILEPTIFORM DISCHARGES: None EVENTS: None ECG: generally regular rhythm, often with rates of 80 to 100 bpm. [id number] score (on day 1 of EEG): 1 (suspected seizure) us Bonifacio Agudelo MD NEUROLOGY ORDERABLES Final Resul t * (ABNORMAL) CBC and Differential (04/24/2025 7:58 AM EDT) WBC 9.98 4.00 - 10.00 K/uL 04/24/2025 8:26 AM EDT [facility] RBC 3.91(L) 4.60 - 6.10 M/uL 04/24/2025 8:26 AM EDT [facility] Hemoglobin 12.4(L) 13.7 - 17.5 g/dL 04/24/2025 8:26 AM EDT [facility] Hematocrit 36.2(L) 40.0 - 51.0 % 04/24/2025 8:26 AM EDT [facility] MCV 93 82 - 98 fL 04/24/2025 8:26 AM EDT [facility] MCH 31.7 26.0 - 32.0 pg 04/24/2025 8:26 AM EDT [facility] MCHC 34.3 32.0 - 37.0 g/dL 04/24/2025 8:26 AM EDT [facility] RDW 13.2 10.5 - 15.5 % 04/24/2025 8:26 AM EDT [facility] RDW-SD 44.4 35.1 - 46.3 fL 04/24/2025 8:26 AM EDT [facility] Platelet Count 287 150 - 400 K/uL 04/24/2025 8:26 AM [facility] Nucleated RBC 0 <=0 #/100 WBC 04/24/2025 8:26 AM [facility] Neutrophil 75.0(H) 34.0 - 71.0 % 04/24/2025 8:26 AM [facility] Lymphocyte 14.5(L) 19.0 - 53.0 % 04/24/2025 8:26 AM [facility] Monocyte 8.2 5.0 - 13.0 % 04/24/2025 8:26 AM [facility] Eosinophil 0.0(L) 1.0 - 7.0 % 04/24/2025 8:26 AM [facility] Basophil 0.6 0.0 - 1.0 % 04/24/2025 8:26 AM [facility] Immature Granulocyte (Villard, Myelo, Promyelocyte) 1.7(H) 0.0 - 0.6 % 04/24/2025 8:26 AM [facility] Absolute Neutrophil Count 7.48(H) 1.60 - 6.10 K/uL 04/24/2025 8:26 AM [facility] Absolute Lymphocyte Count 1.45 1.20 - 3.70 K/uL 04/24/2025 8:26 AM [facility] Absolute Monocyte Count 0.82(H) 0.20 - 0.80 K/uL 04/24/2025 8:26 AM [facility] Absolute Eosinophil Count 0.00(L) 0.04 - 0.54 K/uL 04/24/2025 8:26 AM [facility] Absolute Basophil Count 0.06 0.01 - 0.08 K/uL 04/24/2025 8:26 AM [facility] Absolute Immature Granulocyte (Villard, Myelo, Promyelocyte) 0.17(H) 0.00 - 0.09 K/uL 04/24/2025 8:26 AM [facility] Blood PERIPHERAL BLOOD SPECIMEN / Unknown Venipuncture / Unknown 04/24/2025 7:58 AM EDT 04/24/2025 8:11 AM EDT us Bonifacio Agudelo MD LAB BLOOD ORDERABLES Final Resul t Performing Organization Address City/[facility]/ZIP Co de Phone Number [facility] [address] [place] [address], [place] * Phosphorus (04/24/2025 7:58 AM EDT) Phosphorus 3.3 2.7 - 4.5 mg/dL 04/24/2025 8:42 AM EDT [facility] Blood PERIPHERAL BLOOD SPECIMEN / Unknown Venipuncture / Unknown 04/24/2025 7:58 AM EDT 04/24/2025 8:11 AM EDT us Bonifacio Agudelo MD LAB BLOOD ORDERABLES Final Resul t Performing Organization Address [facility] de Phone Number [facility] [address] [place] [address], [place] * Magnesium (04/24/2025 7:58 AM EDT) Magnesium, Blood 2.2 1.6 - 2.6 mg/dL 04/24/2025 8:42 AM EDT [facility] Blood PERIPHERAL BLOOD SPECIMEN / Unknown Venipuncture / Unknown 04/24/2025 7:58 AM EDT 04/24/2025 8:11 AM EDT us Bonifacio Agudelo MD LAB BLOOD ORDERABLES Final Resul t Performing Organization Address City/[facility] Co de Phone Number [facility] [address] [place] [address], [place] * (ABNORMAL) Basic Metabolic Panel (04/24/2025 7:58 AM EDT) Sodium 141 135 - 147 mmol/L 04/24/2025 9:10 AM EDT [facility] Potassium 3.9 3.5 - 5.4 mmol/L 04/24/2025 9:10 AM EDT [facility] Chloride 104 96 - 108 mmol/L 04/24/2025 9:10 AM EDT [facility] Total CO2/Bicarbonat e 26 22 - 32 mmol/L 04/24/2025 9:10 AM EDT [facility] Anion Gap 11 10 - 18 mmol/L 04/24/2025 9:10 AM EDT [facility] BUN 35(H) 6 - 20 mg/dL 04/24/2025 9:10 AM EDT [facility] Creatinine, Blood 0.90 0.50 - 1.20 mg/dL 04/24/2025 9:10 AM EDT [facility] Glucose, Blood 154(H) 70 - 100 mg/dL 04/24/2025 9:10 AM EDT [facility] Calcium 9.2 8.4 - 10.3 mg/dL 04/24/2025 9:10 AM EDT [facility] Blood PERIPHERAL BLOOD SPECIMEN / Unknown Venipuncture / Unknown 04/24/2025 7:58 AM EDT 04/24/2025 8:11 AM EDT us Bonifacio Agudelo MD LAB BLOOD ORDERABLES Final Resul t [facility] [address] [place] [address], [place] * (ABNORMAL) POCT Glucose (04/23/2025 9:39 PM EDT) Glucose, POC 110(H) 70 - 100 mg/dL 04/23/2025 9:44 PM EDT [facility] Comment: @Serial Ujeeoa=[id number] @Technical Sales Specialist XH=[id number] Blood 04/23/2025 9:39 PM EDT 04/23/2025 9:44 PM EDT us Bonifacio Agudelo MD POCT ORDERABLES - DEVICE Final R esult [facility] [address] [place] [address], [place] * Urine Micro Hold (04/23/2025 9:26 PM EDT) Micro Urine Reflex Hold Received 04/23/2025 11:01 PM EDT [facility] AP Urine MID-STREAM URINE SPECIMEN / Unknown Collection / Unknown 04/23/2025 9:26 PM EDT 04/23/2025 9:30 PM EDT us Bonifacio Agudelo MD URINE ORDERABLES Final Result [facility] AP [address] [place] [address], [place] * (ABNORMAL) Urinalysis with Reflex to Urine Culture (04/23/2025 9:26 PM EDT) Color, Urine Yellow Yellow, Colorless, Straw 04/23/2025 9:42 PM EDT [facility] Clarity, Urine Clear Clear 04/23/2025 9:42 PM EDT [facility] pH, Urine 6.0 5.0 - 8.0 04/23/2025 9:42 PM EDT [facility] Protein, Urine Negative Negative 04/23/2025 9:42 PM EDT [facility] Glucose, Urine Negative Negative 04/23/2025 9:42 PM EDT [facility] Ketone, Urine Negative Negative 04/23/2025 9:42 PM EDT [facility] Bilirubin, Urine Negative Negative 04/23/2025 9:42 PM EDT [facility] Urobilinogen, Urine Normal 0.2-1.0 mg/dL 04/23/2025 9:42 PM EDT [facility] Blood, Urine Negative Negative 04/23/2025 9:42 PM EDT [facility] Leukocyte Esterase, Urine Negative Negative 04/23/2025 9:42 PM EDT [facility] Nitrite, Urine Negative Negative 04/23/2025 9:42 PM EDT [facility] Specific Tynan, Urine 1.016 1.001 - 1.050 04/23/2025 9:42 PM EDT [facility] White Blood Cells, Urine 0 0 - 5 /hpf 04/23/2025 9:42 PM EDT [facility] Red Blood Cells, Urine <1 0 - 2 /hpf 04/23/2025 9:42 PM EDT [facility] Mucous Threads Rare(A) None Seen 04/23/2025 9:42 PM EDT [facility] Urine MID-STREAM URINE SPECIMEN / Unknown Collection / Unknown 04/23/2025 9:26 PM EDT 04/23/2025 9:29 PM EDT us Bonifacio Agudelo MD URINE ORDERABLES Final Result [facility] [address] [place] [address], [place] * (ABNORMAL) Differential with WBC (04/23/2025 7:21 AM EDT) WBC 12.83(H) 4.00 - 10.00 K/uL 04/23/2025 9:42 AM EDT [facility] Neutrophil 78.7(H) 34.0 - 71.0 % 04/23/2025 9:42 AM EDT [facility] Lymphocyte 11.3(L) 19.0 - 53.0 % 04/23/2025 9:42 AM EDT [facility] Monocyte 7.8 5.0 - 13.0 % 04/23/2025 9:42 AM EDT [facility] Eosinophil 0.0(L) 1.0 - 7.0 % 04/23/2025 9:42 AM EDT [facility] Basophil 0.6 0.0 - 1.0 % 04/23/2025 9:42 AM EDT [facility] Nucleated RBC 0 <=0 #/100 WBC 04/23/2025 9:42 AM EDT [facility] Absolute Neutrophil Count 10.25(H) 1.60 - 6.10 K/uL 04/23/2025 9:42 AM EDT [facility] Absolute Lymphocyte Count 1.47 1.20 - 3.70 K/uL 04/23/2025 9:42 AM EDT [facility] Absolute Monocyte Count 1.02(H) 0.20 - 0.80 K/uL 04/23/2025 9:42 AM EDT [facility] Absolute Eosinophil Count 0.00(L) 0.04 - 0.54 K/uL 04/23/2025 9:42 AM EDT [facility] Absolute Basophil Count 0.08 0.01 - 0.08 K/uL 04/23/2025 9:42 AM EDT [facility] Immature Granulocyte (Villard, Myelo, Promyelocyte) 1.6(H) 0.0 - 0.6 % 04/23/2025 9:42 AM EDT [facility] Absolute Immature Granulocyte (Villard, Myelo, Promyelocyte) 0.21(H) 0.00 - 0.09 K/uL 04/23/2025 9:42 AM EDT [facility] Blood PERIPHERAL BLOOD SPECIMEN / Unknown Venipuncture / Unknown 04/23/2025 7:21 AM EDT 04/23/2025 7:29 AM EDT us Bonifacio Agudelo MD LAB BLOOD ORDERABLES Final Resul t [facility] [address] [place] [address], [place] * Phosphorus (04/23/2025 7:21 AM EDT) Phosphorus 3.3 2.7 - 4.5 mg/dL 04/23/2025 8:02 AM EDT [facility] Blood PERIPHERAL BLOOD SPECIMEN / Unknown Venipuncture / Unknown 04/23/2025 7:21 AM EDT 04/23/2025 7:29 AM EDT us Bonifacio Agudelo MD LAB BLOOD ORDERABLES Final Resul t [facility] [address] [place] [address], [place] * Magnesium (04/23/2025 7:21 AM EDT) Magnesium, Blood 2.1 1.6 - 2.6 mg/dL 04/23/2025 8:02 AM EDT [facility] Blood PERIPHERAL BLOOD SPECIMEN / Unknown Venipuncture / Unknown 04/23/2025 7:21 AM EDT 04/23/2025 7:29 AM EDT Bonifacio Agudelo MD LAB BLOOD ORDERABLES Final Resul t [facility] [address] [place] [address], [place] * (ABNORMAL) Basic Metabolic Panel (04/23/2025 7:21 AM EDT) Sodium 139 135 - 147 mmol/L 04/23/2025 8:02 AM EDT [facility] Potassium 3.9 3.5 - 5.4 mmol/L 04/23/2025 8:02 AM EDT [facility] Chloride 103 96 - 108 mmol/L 04/23/2025 8:02 AM EDT [facility] Total CO2/Bicarbonat e 23 22 - 32 mmol/L 04/23/2025 8:02 AM EDT [facility] Anion Gap 13 10 - 18 mmol/L 04/23/2025 8:02 AM EDT [facility] BUN 42(H) 6 - 20 mg/dL 04/23/2025 8:02 AM EDT [facility] Creatinine, Blood 0.90 0.50 - 1.20 mg/dL 04/23/2025 8:02 AM EDT [facility] Glucose, Blood 171(H) 70 - 100 mg/dL 04/23/2025 8:02 AM EDT [facility] Calcium 9.3 8.4 - 10.3 mg/dL 04/23/2025 8:02 AM EDT [facility] Estimated GFR(CKD-EPI) 94 mL/min/BSA 04/23/2025 8:02 AM EDT [facility] Blood PERIPHERAL BLOOD SPECIMEN / Unknown Venipuncture / Unknown 04/23/2025 7:21 AM EDT 04/23/2025 7:29 AM EDT Bonifacio Agudelo MD LAB BLOOD ORDERABLES Final Resul t [facility] [address] [place] [address], [place] * (ABNORMAL) CBC (04/23/2025 7:21 AM EDT) WBC 12.83(H) 4.00 - 10.00 K/uL 04/23/2025 8:01 AM EDT [facility] RBC 3.91(L) 4.60 - 6.10 M/uL 04/23/2025 8:01 AM EDT [facility] Hemoglobin 12.4(L) 13.7 - 17.5 g/dL 04/23/2025 8:01 AM EDT [facility] Hematocrit 37.7(L) 40.0 - 51.0 % 04/23/2025 8:01 AM EDT [facility] MCV 96 82 - 98 fL 04/23/2025 8:01 AM EDT [facility] MCH 31.7 26.0 - 32.0 pg 04/23/2025 8:01 AM EDT [facility] MCHC 32.9 32.0 - 37.0 g/dL 04/23/2025 8:01 AM EDT [facility] RDW 13.2 10.5 - 15.5 % 04/23/2025 8:01 AM EDT [facility] RDW-SD 46.8(H) 35.1 - 46.3 fL 04/23/2025 8:01 AM EDT [facility] Platelet Count 285 150 - 400 K/uL 04/23/2025 8:01 AM EDT [facility] Nucleated RBC 0 <=0 #/100 WBC 04/23/2025 8:01 AM EDT [facility] Blood PERIPHERAL BLOOD SPECIMEN / Unknown Venipuncture / Unknown 04/23/2025 7:21 AM EDT 04/23/2025 7:29 AM EDT us Bonifacio Agudelo MD LAB BLOOD ORDERABLES Final Resul t [facility] [address] [place] [address], [place] * EEG 24 Hour Continuous Video EEG (LTM) (04/23/2025 7:08 AM EDT) Anatomical Region Laterality Modality EEG Impressions 04/23/2025 2:52 PM EDT This continuous EEG showed a normal background in wakefulness and and sleep. There were no areas of significant focal slowing, there were no epileptiform features or electrographic seizures. Attending: Nir Ojeda MD Note on seizure risk / [id number] scores: Interpretation of scores the risk of seizures in the next 72 hours for each Day 1 score is as follows: Score = 0: risk <5%.; time needed< 4h * Score = 1: risk = 12%; time needed: 12h * Score >1: risk >25%; time needed: 24h * * Duration of EEG monitoring needed for risk to decrease to <5%. [Assessment of the Validity of the [id number] Score for Inpatient Seizure Risk Prediction. DEB Neurol. 2020 Jan 20;77(4):500-507.] Narrative 04/23/2025 2:52 PM EDT Table formatting from the original result was not included. CLINICAL NEUROPHYSIOLOGY LAB Department of Neurology [address] [place] [address] ; [phone] Name: Carter Raymundo : 1955 Age: 69 y.o. Gender: EEG #: CONTINUOUS VIDEO EEG REPORT This is a digital video and EEG study recorded from 00:01 until 14:49 on April,. 23 scalp electrodes were placed according to the 10-20 system, along with EOG and ECG electrodes. Quantitative EEG analysis with software and automated spike and seizure detection algorithms were used to assist with visual analysis. HISTORY: 69-year-old man with episode of staring and unresponsiveness. ? evidence of epileptic seizures. MEDICATIONS: include bupropion, carbidopa carbidopa-levodopa, clozapine, enoxaparin, gabapentin, hydroxyzine trazodone. FINDINGS: BACKGROUND: From the beginning, continuous EEG showed a mildly disorganized background but one that included 8 - 8.5 Hz rhythms posteriorly during wakefulness. SLEEP: The patient progressed from wakefulness to drowsiness and sleep, with no additional findings. RHYTHMIC & PERIODIC PATTERNS: There were no rhythmic or periodic patterns. SPORADIC EPILEPTIFORM DISCHARGES: There were no epileptiform discharges. SEIZURES: There were no electrographic seizures. PREPARATOR: Showed a generally regular rhythm, often with rates of 80 to 100 bpm. EVENTS: There were no pushbutton activations. [id number] score (Day1): 0 us Bonifacio Agudelo MD NEUROLOGY ORDERABLES Final Resul t * EEG 24 Hour Continuous Video EEG (LTM) (04/22/2025 5:30 PM EDT) Anatomical Region Laterality Modality EEG Impressions 04/23/2025 1:07 PM EDT This continuous EEG showed a normal background in wakefulness. The anterior extension of these rhythms can be the sign of medication effect. Nevertheless, there were no areas of significant focal slowing, and there were no epileptiform features or electrographic seizures. Attending: Nir Ojeda MD Note on seizure risk / [id number] scores: Interpretation of scores the risk of seizures in the next 72 hours for each Day 1 score is as follows: Score = 0: risk <5%.; time needed< 4h * Score = 1: risk = 12%; time needed: 12h * Score >1: risk >25%; time needed: 24h * * Duration of EEG monitoring needed for risk to decrease to <5%. [Assessment of the Validity of the 2WRXQB4C Score for Inpatient Seizure Risk Prediction. DEB Neurol. 2020 Jan 1;77(4):500-507.] Narrative 04/23/2025 1:07 PM EDT Table formatting from the original result was not included. CLINICAL NEUROPHYSIOLOGY LAB Department of Neurology [facility] [address] [address] ; [phone] Name: Carter Raymundo : 1955 Age: 69 y.o. Gender: EEG #: CONTINUOUS VIDEO EEG REPORT This is a digital video and EEG study recorded from 17:20 until 23:59 on April,. 23 scalp electrodes were placed according to the 10-20 system, along with EOG and ECG electrodes. Quantitative EEG analysis with software and automated spike and seizure detection algorithms were used to assist with visual analysis. HISTORY: 69-year-old man with episode of staring and unresponsiveness. ? evidence of epileptic seizures. MEDICATIONS: include bupropion, carbidopa carbidopa-levodopa, clozapine, enoxaparin, gabapentin, hydroxyzine trazodone. FINDINGS: BACKGROUND: From the beginning, continuous EEG showed a regular 8 - 9 Hz rhythm in all areas, including frontal. SLEEP: The patient appeared to remain awake or drowsy throughout the recording. RHYTHMIC & PERIODIC PATTERNS: There were no rhythmic or periodic patterns. SPORADIC EPILEPTIFORM DISCHARGES: There were no epileptiform discharges. SEIZURES: There were no electrographic seizures. PREPARATOR: Showed a generally regular rhythm, often with a rate of about 100 bpm. EVENTS: There were no pushbutton activations. [id number] score (Day1): 0 us Bonifacio Agudelo MD NEUROLOGY ORDERABLES Final Resul t * XR Chest 1 VW Portable (04/22/2025 2:59 PM EDT) Anatomical Region Laterality Modality Chest Digital Radiogra phy 04/22/2025 3:09 PM EDT Impressions 04/22/2025 3:07 PM EDT In comparison with the study of April 16, there is little change and no evidence of acute cardio pulmonary disease. Cardiac silhouette is within normal limits with no vascular congestion, pleural effusion, or acute focal pneumonia. Austin Doe MD, electronically signed on Apr 22 2025 03:07PM Narrative 04/22/2025 3:07 PM EDT EXAMINATION: XR CHEST 1 VW PORTABLE INDICATION: altered mental status, c/f aspiration; Procedure Note Austin Doe MD - 04/22/2025 EXAMINATION: XR CHEST 1 VW PORTABLE INDICATION: altered mental status, c/f aspiration; IMPRESSION: In comparison with the study of April 16, there is little change and noevidence of acute cardio pulmonary disease. Cardiac silhouette is withinnormal limits with no vascular congestion, pleural effusion, or acutefocal pneumonia. Austin Doe MD, electronically signed on Apr 22 2025 03:07PM us Bonifacio Agudelo MD IMG DIAGNOSTIC IMAGING ORDERABLE S Final Result * Prolactin (04/22/2025 12:02 PM EDT) Pathologist [facility] Prolactin, Blood 14.0 4.0 - 15.0 ng/mL 04/22/2025 3:28 PM EDT [facility] Comment:Measured by Desiree El ecsys (ECLIA) version 2 which is largely unaffected by macroprolactin. Patient results determined by different manufacturers or methods may not be comparable. Blood PERIPHERAL BLOOD SPECIMEN / Unknown Venipuncture / Unknown 04/22/2025 12:02 PM EDT 04/22/2025 12:23 PM EDT us Bonifacio Agudelo MD LAB BLOOD ORDERABLES Final Resul t [facility] [address] [address], * Clozapine Level, Blood (04/22/2025 12:02 PM EDT) Pathologist [facility] Norclozapine 140 25 - 400 mcg/L 04/27/2025 1:00 AM EDT [facility] Clozapine 386 mcg/L 04/27/2025 1:00 AM EDT [facility] Comment: The therapeutic response begins to appear at 100 mcg/L. Refractory schizophrenia appears to require a therapeutic concentration of at least 350 mcg/L (trough, at steady state). Toxic range: Greater than 900 mcg/L This test was developed and its analytical performance characteristics have been determined by [employer] [place], [place]. It has not been cleared or approved by the U.S. Food and Drug Administration. This assay has been validated pursuant to the CLIA regulations and is used for clinical purposes. Blood PERIPHERAL BLOOD SPECIMEN / Unknown Venipuncture / Unknown 04/22/2025 12:02 PM EDT 04/22/2025 12:23 PM EDT Narrative ADRIANA FONTANA MA - 04/27/2025 1:00 AM EDT Performing Organization Information: Site ID: [id number] Name: ADRIANA CRESPO/SAM CRYSTAL Address: [id number] [place] [id number] Director: LEONEL RUIZ MD,PHD us Bonifacio Agudelo MD LAB BLOOD ORDERABLES Final Resul t [facility]RI[facility] FONTANA [place] [address] [place] [address], [place] [phone] * CT Head Without Contrast (04/22/2025 11:55 AM EDT) Anatomical Region Laterality Modality Head Computed Tomogra phy 04/22/2025 12:1 2 PM EDT Impressions 04/22/2025 12:45 PM EDT No acute intracranial abnormality. WET READ: : BY ELECTRONICALLY SIGNING THIS REPORT, I THE ATTENDING PHYSICIAN ATTEST THAT I HAVE REVIEWED THE IMAGES FOR THE ABOVE PROCEDURE(S) AND AGREE WITH THE FINDINGS DOCUMENTED. MD Gricelda Rucker MD, electronically signed on Apr 22 2025 12:45PM Narrative 04/22/2025 12:45 PM EDT EXAMINATION: CT HEAD WO CONTRAST [id number] CT HEAD INDICATION: Altered Mental Status TECHNIQUE: Contiguous axial images of the brain were obtained without contrast. Coronal and sagittal reformations as well as bone algorithm reconstructions were provided and reviewed. DOSE: Acquisition sequence: 1) Sequenced Acquisition 5.0 s, 20.0 cm; CTDIvol = 47.7 mGy (Head) DLP = 954.1 mGy-cm 2) Sequenced Acquisition 2.0 s, 8.0 cm; CTDIvol = 47.7 mGy (Head) DLP = 381.7 mGy-cm Total DLP (Body) = 3 mGy-cm Total DLP (Head) = 1,336 mGy-cm COMPARISON: MR brain and CTA head and neck 15 April 2025 FINDINGS: There is no evidence of acute displaced calvarial fracture, large vascular territorial infarction, intracranial hemorrhage, edema, or mass effect. There is prominence of the ventricles and sulci suggestive of involutional changes. The visualized portion of the paranasal sinuses, mastoid air cells, and middle ear cavities are clear. The visualized portion of the orbits are normal. Procedure Note Gricelda Velasco MD - 04/22/2025 EXAMINATION: CT HEAD WO CONTRAST [id number] CT HEAD INDICATION: Altered Mental Status TECHNIQUE: Contiguous axial images of the brain were obtained without contrast.Coronal and sagittal reformations as well as bone algorithmreconstructions were provided and reviewed. DOSE: Acquisition sequence: 1) Sequenced Acquisition 5.0 s, 20.0 cm; CTDIvol = 47.7 mGy (Head) DLP= 954.1 mGy-cm 2) Sequenced Acquisition 2.0 s, 8.0 cm; CTDIvol = 47.7 mGy (Head) DLP =381.7 mGy-cm Total DLP (Body) = 3 mGy-cm Total DLP (Head) = 1,336 mGy-cm COMPARISON: MR brain and CTA head and neck 15 April 2025 FINDINGS: There is no evidence of acute displaced calvarial fracture, large vascularterritorial infarction, intracranial hemorrhage, edema, or mass effect.There is prominence of the ventricles and sulci suggestive of involutionalchanges. The visualized portion of the paranasal sinuses, mastoid air cells, andmiddle ear cavities are clear. The visualized portion of the orbits arenormal. IMPRESSION: No acute intracranial abnormality. WET READ: : BY ELECTRONICALLY SIGNING THIS REPORT, I THE ATTENDING PHYSICIAN ATTESTTHAT I HAVE REVIEWED THE IMAGES FOR THE ABOVE PROCEDURE(S) AND AGREE WITHTHE FINDINGS DOCUMENTED. MD Gricelda Rucker MD, electronically signed on Apr 22 2025 12:45PM us Bonifacio Agudelo MD IMG CT ORDERABLES Final Result * ECG 12 lead (04/22/2025 11:27 AM EDT) Ventricular Heart Rate 119 BPM EKG BUR MUSE Atrial Heart Rate 119 BPM EKG BUR MUSE LA Interval 144 ms EKG BUR MUSE QRSD Interval 96 ms EKG BUR MUSE QT Interval 362 ms EKG BUR MUSE QTC Interval 509 ms EKG BUR MUSE P Mathews 58 degrees EKG BUR MUSE R Mathews -36 degrees EKG BUR MUSE T Wave Mathews 72 degrees EKG BUR MUSE 04/22/2025 11:2 7 AM EDT 04/22/2025 10:28 PM EDT Narrative EKG KATH MUSE - 04/22/2025 10:28 PM EDT Sinus tachycardia Left axis deviation / Left anterior hemiblock/fascicular block Minimal voltage criteria for LVH, may be normal variant Nonspecific ST-T wave abnormalities QTc prolongation When compared with ECG of 15-Apr-2025 18:53, rate faster. Frontal plane QRS axis slightly more leftward. Procedure Note Dannielle Pollard MD - 04/22/2025 Sinus tachycardia Left axis deviation / Left anterior hemiblock/fascicular block Minimal voltage criteria for LVH, may be normal variant Nonspecific ST-T wave abnormalities QTc prolongation When compared with ECG of 15-Apr-2025 18:53, rate faster. Frontal planeQRS axis slightly more leftward. Bonifacio Agudelo MD ECG ORDERABLES Final Result EKG KATH MUSE [address] [place] [id number] * (ABNORMAL) Hepatic Function Panel (04/22/2025 11:21 AM EDT) Total Protein 6.7 6.4 - 8.3 g/dL 04/22/2025 12:11 PM EDT [facility] Albumin, Blood 3.7 3.5 - 5.2 g/dL 04/22/2025 12:11 PM EDT [facility] Globulin Result 3.0 2.0 - 4.0 g/dL 04/22/2025 12:11 PM EDT [facility] Total Bilirubin 0.3 0.0 - 1.5 mg/dL 04/22/2025 12:11 PM EDT [facility] Direct Bilirubin 0.1 0.0 - 0.3 mg/dL 04/22/2025 12:11 PM EDT [facility] Alkaline Phosphatase 161(H) 40 - 130 U/L 04/22/2025 12:11 PM EDT [facility] AST (SGOT) 17 0 - 40 U/L 04/22/2025 12:11 PM EDT [facility] ALT (SGPT) <5 0 - 40 U/L 04/22/2025 12:11 PM EDT [facility] Blood PERIPHERAL BLOOD SPECIMEN / Unknown Venipuncture / Unknown 04/22/2025 11:21 AM EDT 04/22/2025 11:25 AM EDT us Bonifacio Agudelo MD LAB BLOOD ORDERABLES Final Resul t Performing Organization Address City/[facility]/ZIP Co de Phone Number [facility] [address] [place] [address], [place] * (ABNORMAL) CK (Creatine Kinase) (04/22/2025 11:21 AM EDT) Creatine Kinase Total (CK) 26(L) 47 - 322 U/L 04/22/2025 12:11 PM EDT [facility] Blood PERIPHERAL BLOOD SPECIMEN / Unknown Venipuncture / Unknown 04/22/2025 11:21 AM EDT 04/22/2025 11:25 AM EDT us Bonifacio Agudelo MD LAB BLOOD ORDERABLES Final Resul t Performing Organization Address City/[facility]/ZIP Co de Phone Number [facility] [address] [place] [address], [place] * Lactic Acid (04/22/2025 11:21 AM EDT) Lactic Acid 2.0 0.5 - 2.0 mmol/L 04/22/2025 11:42 AM EDT [facility] Blood Venipuncture / Unknown 04/22/2025 11:21 AM EDT 04/22/2025 11:24 AM EDT us Bonifacio Agudelo MD LAB BLOOD ORDERABLES Final Resul t [facility] [address] [place] [address], [place] * (ABNORMAL) Blood Gas, Venous (04/22/2025 11:21 AM EDT) pH, Venous 7.48(H) 7.35 - 7.45 04/22/2025 11:26 AM EDT [facility] pCO2, Venous 35 35 - 45 mmHg 04/22/2025 11:26 AM EDT [facility] pO2, Venous 203(H) 80 - 105 mmHg 04/22/2025 11:26 AM EDT [facility] HCO3, Venous 26 21 - 30 mmol/L 04/22/20 11:26 AM EDT [facility] % O2Hb, Venous 97 95 - 99 % 04/22/2025 11:26 AM EDT [facility] Base Excess, Venous 3.1 No Established Reference Range mmol/L 04/22/2025 11:26 AM EDT [facility] Carboxyhemogl obin, VBG 1.9(H) 0.5 - 1.5 % 04/22/2025 11:26 AM EDT [facility] Methemoglobin , VBG 0.4 0.2 - 0.6 % 04/22/2025 11:26 AM EDT [facility] Blood Venipuncture / Unknown 04/22/2025 11:21 AM EDT 04/22/2025 11:24 AM EDT us Bonifacio Agudelo MD LAB BLOOD ORDERABLES Final Resul t [facility] [address] [place] [address], [place] * (ABNORMAL) CBC (04/22/2025 11:21 AM EDT) WBC 10.35(H) 4.00 - 10.00 K/uL 04/22/2025 11:32 AM EDT [facility] RBC 4.49(L) 4.60 - 6.10 M/uL 04/22/2025 11:32 AM EDT [facility] Hemoglobin 14.0 13.7 - 17.5 g/dL 04/22/2025 11:32 AM EDT [facility] Hematocrit 41.4 40.0 - 51.0 % 04/22/2025 11:32 AM EDT [facility] MCV 92 82 - 98 fL 04/22/2025 11:32 AM EDT [facility] MCH 31.2 26.0 - 32.0 pg 04/22/2025 11:32 AM EDT [facility] MCHC 33.8 32.0 - 37.0 g/dL 04/22/2025 11:32 AM EDT [facility] RDW 13.2 10.5 - 15.5 % 04/22/2025 11:32 AM EDT [facility] RDW-SD 45.0 35.1 - 46.3 fL 04/22/2025 11:32 AM EDT [facility] Platelet Count 290 150 - 400 K/uL 04/22/2025 11:32 AM EDT [facility] Nucleated RBC 0 <=0 #/100 WBC 04/22/2025 11:32 AM EDT [facility] Blood PERIPHERAL BLOOD SPECIMEN / Unknown Venipuncture / Unknown 04/22/2025 11:21 AM EDT 04/22/2025 11:27 AM EDT us Bonifacio Agudelo MD LAB BLOOD ORDERABLES Final Resul t [facility] [address] [place] [address], * (ABNORMAL) Basic Metabolic Panel (04/22/2025 11:21 AM EDT) Sodium 144 135 - 147 mmol/L 04/22/2025 12:11 PM EDT [facility] Potassium 4.4 3.5 - 5.4 mmol/L 04/22/2025 12:11 PM EDT [facility] Chloride 107 96 - 108 mmol/L 04/22/2025 12:11 PM EDT [facility] Total CO2/Bicarbonat e 24 22 - 32 mmol/L 04/22/2025 12:11 PM EDT [facility] Anion Gap 13 10 - 18 mmol/L 04/22/2025 12:11 PM EDT [facility] BUN 35(H) 6 - 20 mg/dL 04/22/2025 12:11 PM EDT [facility] Creatinine, Blood 1.00 0.50 - 1.20 mg/dL 04/22/2025 12:11 PM EDT [facility] Glucose, Blood 127(H) 70 - 100 mg/dL 04/22/2025 12:11 PM EDT [facility] Calcium 9.6 8.4 - 10.3 mg/dL 04/22/2025 12:11 PM EDT [facility] Blood PERIPHERAL BLOOD SPECIMEN / Unknown Venipuncture / Unknown 04/22/2025 11:21 AM EDT 04/22/2025 11:25 AM EDT us Bonifacio Agudelo MD LAB BLOOD ORDERABLES Final Resul t Performing Organization Address City/[facility]/ZIP Co de Phone Number [facility] [address] [place] [address], [place] * (ABNORMAL) POCT Glucose (04/22/2025 11:07 AM EDT) Glucose, POC 116(H) 70 - 100 mg/dL 04/22/2025 4:17 PM EDT [facility] Comment: @Serial Udyqel=[id number] @Technical Sales Specialist [place]=[id number] Blood 04/22/2025 11:0 7 AM EDT 04/22/2025 4:17 PM EDT us Bonifacio Agudelo MD POCT ORDERABLES - DEVICE Final R esult [facility] [address] [place] [address], [place] * (ABNORMAL) CBC and Differential (04/22/2025 6:56 AM EDT) WBC 9.15 4.00 - 10.00 K/uL 04/22/2025 7:41 AM EDT [facility] RBC 4.17(L) 4.60 - 6.10 M/uL 04/22/2025 7:41 AM [facility] Hemoglobin 13.0(L) 13.7 - 17.5 g/dL 04/22/2025 7:41 AM [facility] Hematocrit 38.9(L) 40.0 - 51.0 % 04/22/2025 7:41 AM [facility] MCV 93 82 - 98 fL 04/22/2025 7:41 AM [facility] MCH 31.2 26.0 - 32.0 pg 04/22/2025 7:41 AM [facility] MCHC 33.4 32.0 - 37.0 g/dL 04/22/2025 7:41 AM [facility] RDW 13.2 10.5 - 15.5 % 04/22/2025 7:41 AM [facility] RDW-SD 45.0 35.1 - 46.3 fL 04/22/2025 7:41 AM [facility] Platelet Count 277 150 - 400 K/uL 04/22/2025 7:41 AM [facility] Nucleated RBC 0 <=0 #/100 WBC 04/22/2025 7:41 AM [facility] Neutrophil 74.7(H) 34.0 - 71.0 % 04/22/2025 7:41 AM [facility] Lymphocyte 15.1(L) 19.0 - 53.0 % 04/22/2025 7:41 AM [facility] Monocyte 8.7 5.0 - 13.0 % 04/22/2025 7:41 AM [facility] Eosinophil 0.0(L) 1.0 - 7.0 % 04/22/2025 7:41 AM [facility] Basophil 0.4 0.0 - 1.0 % 04/22/2025 7:41 AM [facility] Immature Granulocyte (Villard, Myelo, Promyelocyte) 1.1(H) 0.0 - 0.6 % 04/22/2025 7:41 AM [facility] Absolute Neutrophil Count 6.83(H) 1.60 - 6.10 K/uL 04/22/2025 7:41 AM EDT [facility] Absolute Lymphocyte Count 1.38 1.20 - 3.70 K/uL 04/22/2025 7:41 AM EDT [facility] Absolute Monocyte Count 0.80 0.20 - 0.80 K/uL 04/22/2025 7:41 AM EDT [facility] Absolute Eosinophil Count 0.00(L) 0.04 - 0.54 K/uL 04/22/2025 7:41 AM EDT [facility] Absolute Basophil Count 0.04 0.01 - 0.08 K/uL 04/22/2025 7:41 AM EDT [facility] Absolute Immature Granulocyte (Villard, Myelo, Promyelocyte) 0.10(H) 0.00 - 0.09 K/uL 04/22/2025 7:41 AM EDT [facility] Blood PERIPHERAL BLOOD SPECIMEN / Unknown Venipuncture / Unknown 04/22/2025 6:56 AM EDT 04/22/2025 7:12 AM EDT Bonifacio Agudelo MD LAB BLOOD ORDERABLES Final Resul t Performing Organization Address City/[facility]/ZIP Co de Phone Number [facility] [address] [place] [address], [place] * Magnesium (04/20/2025 6:54 AM EDT) Magnesium, Blood 2.1 1.6 - 2.6 mg/dL 04/20/2025 7:46 AM EDT [facility] Blood PERIPHERAL BLOOD SPECIMEN / Unknown Venipuncture / Unknown 04/20/2025 6:54 AM EDT 04/20/2025 7:10 AM EDT Chuy Hernandez MD LAB BLOOD ORDERABLES Final R esult [facility] [address] [place] [address], [place] * Phosphorus (04/20/2025 6:54 AM EDT) Phosphorus 4.0 2.7 - 4.5 mg/dL 04/20/2025 7:46 AM EDT [facility] Blood PERIPHERAL BLOOD SPECIMEN / Unknown Venipuncture / Unknown 04/20/2025 6:54 AM EDT 04/20/2025 7:10 AM EDT us Chuy Hernandez MD LAB BLOOD ORDERABLES Final R esult [facility] [address] [place] [address], [place] * (ABNORMAL) Basic Metabolic Panel (04/20/2025 6:54 AM EDT) [facility] Sodium 141 135 - 147 mmol/L 04/20/2025 7:47 AM EDT [facility] Potassium 3.7 3.5 - 5.4 mmol/L 04/20/2025 7:47 AM EDT [facility] Chloride 107 96 - 108 mmol/L 04/20/2025 7:47 AM EDT [facility] Total CO2/Bicarbonat e 24 22 - 32 mmol/L 04/20/2025 7:47 AM EDT [facility] Anion Gap 10 10 - 18 mmol/L 04/20/2025 7:47 AM EDT [facility] BUN 31(H) 6 - 20 mg/dL 04/20/2025 7:47 AM EDT [facility] Creatinine, Blood 1.00 0.50 - 1.20 mg/dL 04/20/2025 7:47 AM EDT [facility] Glucose, Blood 134(H) 70 - 100 mg/dL 04/20/2025 7:47 AM EDT [facility] Calcium 9.1 8.4 - 10.3 mg/dL 04/20/2025 7:47 AM EDT [facility] Blood PERIPHERAL BLOOD SPECIMEN / Unknown Venipuncture / Unknown 04/20/2025 6:54 AM EDT 04/20/2025 7:10 AM EDT us Chuy Hernandez MD LAB BLOOD ORDERABLES Final R esult [facility] [address] [place] [address], [place] * (ABNORMAL) CBC (04/20/2025 6:54 AM EDT) WBC 9.24 4.00 - 10.00 K/uL 04/20/2025 7:20 AM EDT [facility] RBC 3.96(L) 4.60 - 6.10 M/uL 04/20/2025 7:20 AM EDT [facility] Hemoglobin 12.4(L) 13.7 - 17.5 g/dL 04/20/2025 7:20 AM EDT [facility] Hematocrit 36.6(L) 40.0 - 51.0 % 04/20/2025 7:20 AM EDT [facility] MCV 92 82 - 98 fL 04/20/2025 7:20 AM EDT [facility] MCH 31.3 26.0 - 32.0 pg 04/20/2025 7:20 AM EDT [facility] MCHC 33.9 32.0 - 37.0 g/dL 04/20/2025 7:20 AM EDT [facility] RDW 13.5 10.5 - 15.5 % 04/20/2025 7:20 AM EDT [facility] RDW-SD 45.9 35.1 - 46.3 fL 04/20/2025 7:20 AM EDT [facility] Platelet Count 267 150 - 400 K/uL 04/20/2025 7:20 AM EDT [facility] Nucleated RBC 0 <=0 #/100 WBC 04/20/2025 7:20 AM EDT [facility] Blood PERIPHERAL BLOOD SPECIMEN / Unknown Venipuncture / Unknown 04/20/2025 6:54 AM EDT 04/20/2025 7:09 AM EDT us Chuy Hernandez MD LAB BLOOD ORDERABLES Final R esult [facility] [address] [place] [address], [place] * XR Abdomen Portable (04/19/2025 6:48 PM EDT) Anatomical Region Laterality Modality Abdomen Digital Radiogra phy 04/19/2025 10:5 7 PM EDT Impressions 04/20/2025 11:26 AM EDT 1. Appropriate PEG tube positioning. 2. Nonobstructive bowel gas pattern. BY ELECTRONICALLY SIGNING THIS REPORT, I THE ATTENDING PHYSICIAN ATTEST THAT I HAVE REVIEWED THE IMAGES FOR THE ABOVE PROCEDURE(S) AND AGREE WITH THE FINDINGS DOCUMENTED. MD Esther Joshua MD, electronically signed on Apr 20 2025 11:26AM Narrative 04/20/2025 11:26 AM EDT INDICATION: S/p PEG tube placement; TECHNIQUE: Supine abdominal radiograph was obtained. COMPARISON: None. FINDINGS: A gastrostomy overlies the left upper quadrant. There are no abnormally dilated loops of large or small bowel. Assessment for free intraperitoneal air is limited on supine radiographs. If there is clinical concern for pneumoperitoneum, advise upright or left lateral decubitus radiograph, or cross-sectional imaging. Status post L4-5 fusion. Clips overlie the left iliac bone. Procedure Note Esther Woodson MD - 04/20/2025 INDICATION: S/p PEG tube placement; TECHNIQUE: Supine abdominal radiograph was obtained. COMPARISON: None. FINDINGS: A gastrostomy overlies the left upper quadrant. There are no abnormallydilated loops of large or small bowel. Assessment for free intraperitoneal air is limited on supine radiographs.If there is clinical concern for pneumoperitoneum, advise upright or leftlateral decubitus radiograph, or cross-sectional imaging. Status post L4-5 fusion. Clips overlie the left iliac bone. IMPRESSION: 1. Appropriate PEG tube positioning. 2. Nonobstructive bowel gas pattern. BY ELECTRONICALLY SIGNING THIS REPORT, I THE ATTENDING PHYSICIAN ATTESTTHAT I HAVE REVIEWED THE IMAGES FOR THE ABOVE PROCEDURE(S) AND AGREE WITHTHE FINDINGS DOCUMENTED. MD Esther Joshua MD, electronically signed on Apr 20 2025 11:26AM Jono Aviles MD IMG DIAGNOSTIC IMAGING ORDERABL ES Final Result * IR G Tube Rescue (04/19/2025 3:15 PM EDT) Anatomical Region Laterality Modality X-Ray Angiograph y 05/12/2025 6:19 PM EDT Addenda Addendum by Cassandra Fernandez MD on 05/14/2025 12:28 PM EDT ADDENDUM Error in dictation. The final report should read: Brief history: 69M schizoaffective disorder, and drug-induced parkinsonism, who presents with unresponsiveness, aphasia, and possible left facial droop. Patient has gastrostomy tube placed by surgery in [facility] in December of this year. Patient pulled his tube, IR consulted to replace. TECHNIQUE: OPERATORS: Nataliya Gutierres NP, Janes Joshi MD (attending was immediately available) ANESTHESIA: Lidocaine jelly PROCEDURE: 1. Rescue of a gastrostomy tube. PROCEDURE DETAILS: Following the discussion of the risks, benefits and alternatives to the procedure, written informed consent was obtained from healthcare proxy. The procedure was performed bedside supine. A pre-procedure time-out was performed per [facility] protocol. The upper abdomen and tube site was prepped and draped in the usual sterile fashion. A new 18 Fr Entuit gastrostomy tube was into the stomach and the balloon was inflated using sterile water. Patient tolerated the procedure well and there were no immediate post-procedure complications. Specimens removed: None Estimated blood loss (mL): none Complications: No immediate complications IMPRESSION: Successful bedside exchange of a 18 Fr Entuit gastrostomy tube. Tube is ready to use. PLAN: Please obtain tube study to confirm placement of gastrostomy tube. After confirming the tube can be used immediately. Routine exchange in 6 month. Cassandra Fernandez MD, electronically signed on May 14 2025 12:28PM Impressions 05/12/2025 6:18 PM EDT Technically successful gastrostomy tube rescue with placement of a new 16 Georgian (3 cm stoma length) gastrostomy tube. Recommend gastrostomy tube study to confirm appropriate position. Once appropriate position has been confirmed, the gastrostomy tube can be used. BY ELECTRONICALLY SIGNING THIS REPORT, I THE ATTENDING PHYSICIAN ATTEST THAT I HAVE REVIEWED THE IMAGES FOR THE ABOVE PROCEDURE(S) AND AGREE WITH THE FINDINGS DOCUMENTED. MD Cassandra Betancur MD, electronically signed on May 12 2025 06:18PM Narrative 05/12/2025 6:18 PM EDT INDICATION: G tube rescue; Additional information: 69-year-old male with recurrent aspiration oropharyngeal dysphagia maintained with a G-tube. Initially placed in December 2024. TECHNIQUE: OPERATORS: Dr. Fernandez, attending interventional radiologist and Dr. Hamm, resident interventional radiologist performed the procedure. The attending personally supervised the trainee during any evans components of the procedure where applicable and reviewed and agrees with the findings as reported below. ANESTHESIA: Lidocaine jelly only. MEDICATIONS: Lidocaine jelly CONTRAST: None PROCEDURE: The procedure was performed bedside. The patient was placed supine. A time-out was performed with 3 patient identifiers. The midabdomen was prepped and draped in a sterile fashion. A 12 Georgian Maharaj was identified in the gastrostomy tract. The balloon of the Maharaj was deflated. A stiff Glidewire was advanced through the Maharaj catheter into the stomach. The Maharaj was removed with gentle traction. A 16 Georgian low- profile 3 cm stoma gastrostomy tube was advanced over the stiff Glidewire and into the stomach. The balloon was inflated with sterile water. The gastrostomy tube was aspirated revealing gastric contents. The gastrostomy tube was then flushed sterile water. Sterile dressings were applied. Patient tolerated the procedure well. No immediate postprocedural complications. COMPARISON: None available. FINDINGS: Existing gastrostomy tract with 12 Georgian Maharaj. Placement of new 16 Georgian 3 cm low-profile gastrostomy tube with aspiration of gastric contents confirming appropriate position. Recommend confirmation with injection of contrast and radiograph. Procedure Note Nataliya Gutierres NP / Cassandra Fernandez MD - 05/12/2025 INDICATION: G tube rescue; Additional information: 69-year-old male with recurrent aspirationoropharyngeal dysphagia maintained with a G-tube. Initially placed inDecember 2024. TECHNIQUE: OPERATORS: Dr. Fernandez, attending interventional radiologist and Dr. Hamm,resident interventional radiologist performed the procedure. Theattending personally supervised the trainee during any evans components ofthe procedure where applicable and reviewed and agrees with the findings as reported below. ANESTHESIA: Lidocaine jelly only. MEDICATIONS: Lidocaine jelly CONTRAST: None PROCEDURE: The procedure was performed bedside. The patient was placed supine. Atime-out was performed with 3 patient identifiers. The midabdomen wasprepped and draped in a sterile fashion. A 12 Georgian Maharaj was identifiedin the gastrostomy tract. The balloon of the Maharaj was deflated. A stiff Glidewire was advanced through the Foleycatheter into the stomach. The Maharaj was removed with gentle traction. A16 Georgian low-profile 3 cm stoma gastrostomy tube was advanced over thestiff Glidewire and into the stomach. The balloon was inflated with sterile water. The gastrostomy tubewas aspirated revealing gastric contents. The gastrostomy tube was thenflushed sterile water. Sterile dressings were applied. Patient tolerated the procedure well. No immediate postproceduralcomplications. COMPARISON: None available. FINDINGS: Existing gastrostomy tract with 12 Georgian Maharaj. Placement of new 16 Georgian 3 cm low-profile gastrostomy tube withaspiration of gastric contents confirming appropriate position. Recommendconfirmation with injection of contrast and radiograph. IMPRESSION: Technically successful gastrostomy tube rescue with placement of a new 16French (3 cm stoma length) gastrostomy tube. Recommend gastrostomy tubestudy to confirm appropriate position. Once appropriate position has beenconfirmed, the gastrostomy tube can be used. BY ELECTRONICALLY SIGNING THIS REPORT, I THE ATTENDING PHYSICIAN ATTESTTHAT I HAVE REVIEWED THE IMAGES FOR THE ABOVE PROCEDURE(S) AND AGREE WITHTHE FINDINGS DOCUMENTED. MD Cassandra Betancur MD, electronically signed on May 12 2025 06:18PM Jono Aviles MD IMG IR ORDERABLES Edited Result - Final * Magnesium (04/19/2025 6:10 AM EDT) Magnesium, Blood 2.0 1.6 - 2.6 mg/dL 04/19/2025 7:06 AM EDT [facility] Blood PERIPHERAL BLOOD SPECIMEN / Unknown Venipuncture / Unknown 04/19/2025 6:10 AM EDT 04/19/2025 6:36 AM EDT us Chuy Hernandez MD LAB BLOOD ORDERABLES Final R esult [facility] [address] [place] [address], [place] * Phosphorus (04/19/2025 6:10 AM EDT) Phosphorus 2.9 2.7 - 4.5 mg/dL 04/19/2025 7:06 AM EDT [facility] Blood PERIPHERAL BLOOD SPECIMEN / Unknown Venipuncture / Unknown 04/19/2025 6:10 AM EDT 04/19/2025 6:36 AM EDT Chuy Hernandez MD LAB BLOOD ORDERABLES [facility] [address] [place] [address], [place] * (ABNORMAL) Basic Metabolic Panel (04/19/2025 6:10 AM EDT) Sodium 140 135 - 147 mmol/L 04/19/2025 7:06 AM EDT [facility] Potassium 3.4(L) 3.5 - 5.4 mmol/L 04/19/2025 7:06 AM EDT [facility] Chloride 104 96 - 108 mmol/L 04/19/2025 7:06 AM EDT [facility] Total CO2/Bicarbonat e 26 22 - 32 mmol/L 04/19/2025 7:06 AM EDT [facility] Anion Gap 10 10 - 18 mmol/L 04/19/2025 7:06 AM EDT [facility] BUN 33(H) 6 - 20 mg/dL 04/19/2025 7:06 AM EDT [facility] Creatinine, Blood 1.10 0.50 - 1.20 mg/dL 04/19/2025 7:06 AM EDT [facility] Glucose, Blood 142(H) 70 - 100 mg/dL 04/19/2025 7:06 AM EDT [facility] Calcium 9.1 8.4 - 10.3 mg/dL 04/19/2025 7:06 AM EDT [facility] Blood PERIPHERAL BLOOD SPECIMEN / Unknown Venipuncture / Unknown 04/19/2025 6:10 AM EDT 04/19/2025 6:36 AM EDT us Chuy Hernandez MD LAB BLOOD ORDERABLES Final R esult [facility] [address] [place] [address], * (ABNORMAL) CBC (04/19/2025 6:10 AM EDT) WBC 9.06 4.00 - 10.00 K/uL 04/19/2025 6:43 AM EDT [facility] RBC 3.95(L) 4.60 - 6.10 M/uL 04/19/2025 6:43 AM EDT [facility] Hemoglobin 12.5(L) 13.7 - 17.5 g/dL 04/19/2025 6:43 AM EDT [facility] Hematocrit 36.6(L) 40.0 - 51.0 % 04/19/2025 6:43 AM EDT [facility] MCV 93 82 - 98 fL 04/19/2025 6:43 AM EDT [facility] MCH 31.6 26.0 - 32.0 pg 04/19/2025 6:43 AM EDT [facility] MCHC 34.2 32.0 - 37.0 g/dL 04/19/2025 6:43 AM EDT [facility] RDW 13.4 10.5 - 15.5 % 04/19/2025 6:43 AM EDT [facility] RDW-SD 46.1 35.1 - 46.3 fL 04/19/2025 6:43 AM EDT [facility] Platelet Count 252 150 - 400 K/uL 04/19/2025 6:43 AM EDT [facility] Nucleated RBC 0 <=0 #/100 WBC 04/19/2025 6:43 AM EDT [facility] Blood PERIPHERAL BLOOD SPECIMEN / Unknown Venipuncture / Unknown 04/19/2025 6:10 AM EDT 04/19/2025 6:33 AM EDT Chuy Hernandez MD LAB BLOOD ORDERABLES Final R esult Performing Organization Address City/[facility]/ZIP Co de Phone Number [facility] [address] [place] [address], [place] * Magnesium (04/18/2025 7:10 AM EDT) Magnesium, Blood 2.0 1.6 - 2.6 mg/dL 04/18/2025 7:56 AM EDT [facility] Blood PERIPHERAL BLOOD SPECIMEN / Unknown Venipuncture / Unknown 04/18/2025 7:10 AM EDT 04/18/2025 7:22 AM EDT Chuy Hernandez MD LAB BLOOD ORDERABLES Final R esult Performing Organization Address [facility]/ZIP Co de Phone Number [facility] [address] [place] [address], [place] * Phosphorus (04/18/2025 7:10 AM EDT) Phosphorus 3.7 2.7 - 4.5 mg/dL 04/18/2025 7:56 AM EDT [facility] Blood PERIPHERAL BLOOD SPECIMEN / Unknown Venipuncture / Unknown 04/18/2025 7:10 AM EDT 04/18/2025 7:22 AM EDT Chuy Hernandez MD LAB BLOOD ORDERABLES Final R esult Performing Organization Address City/[facility]/ZIP Co de Phone Number [facility] [address] [place] [address], [place] * (ABNORMAL) Basic Metabolic Panel (04/18/2025 7:10 AM EDT) Sodium 141 135 - 147 mmol/L 04/18/2025 7:56 AM EDT [facility] Potassium 3.6 3.5 - 5.4 mmol/L 04/18/2025 7:56 AM EDT [facility] Chloride 106 96 - 108 mmol/L 04/18/2025 7:56 AM EDT [facility] Total CO2/Bicarbonat e 22 22 - 32 mmol/L 04/18/2025 7:56 AM EDT [facility] Anion Gap 13 10 - 18 mmol/L 04/18/2025 7:56 AM EDT [facility] BUN 34(H) 6 - 20 mg/dL 04/18/2025 7:56 AM EDT [facility] Creatinine, Blood 1.10 0.50 - 1.20 mg/dL 04/18/2025 7:56 AM EDT [facility] Glucose, Blood 97 70 - 100 mg/dL 04/18/2025 7:56 AM EDT [facility] Calcium 9.3 8.4 - 10.3 mg/dL 04/18/2025 7:56 AM EDT [facility] Blood PERIPHERAL BLOOD SPECIMEN / Unknown Venipuncture / Unknown 04/18/2025 7:10 AM EDT 04/18/2025 7:22 AM EDT us Chuy Hernandez MD LAB BLOOD ORDERABLES Final R esult [facility] [address] [place] [address], * (ABNORMAL) CBC (04/18/2025 7:10 AM EDT) WBC 9.19 4.00 - 10.00 K/uL 04/18/2025 7:38 AM EDT [facility] RBC 4.04(L) 4.60 - 6.10 M/uL 04/18/2025 7:38 AM EDT [facility] Hemoglobin 12.6(L) 13.7 - 17.5 g/dL 04/18/2025 7:38 AM EDT [facility] Hematocrit 37.0(L) 40.0 - 51.0 % 04/18/2025 7:38 AM EDT [facility] MCV 92 82 - 98 fL 04/18/2025 7:38 AM EDT [facility] MCH 31.2 26.0 - 32.0 pg 04/18/2025 7:38 AM EDT [facility] MCHC 34.1 32.0 - 37.0 g/dL 04/18/2025 7:38 AM EDT [facility] RDW 13.2 10.5 - 15.5 % 04/18/2025 7:38 AM EDT [facility] RDW-SD 43.9 35.1 - 46.3 fL 04/18/2025 7:38 AM EDT [facility] Platelet Count 257 150 - 400 K/uL 04/18/2025 7:38 AM EDT [facility] Nucleated RBC 0 <=0 #/100 WBC 04/18/2025 7:38 AM EDT [facility] Blood PERIPHERAL BLOOD SPECIMEN / Unknown Venipuncture / Unknown 04/18/2025 7:10 AM EDT 04/18/2025 7:19 AM EDT Chuy Hernandez MD LAB BLOOD ORDERABLES Final R esult [facility] [address] [place] [address], [place] * (ABNORMAL) C-Reactive Protein (04/17/2025 7:40 AM EDT) [facility] C-Reactive Protein (CRP) 7.5(H) 0.0 - 5.0 mg/L 04/17/2025 1:38 PM EDT [facility] Blood PERIPHERAL BLOOD SPECIMEN / Unknown Venipuncture / Unknown 04/17/2025 7:40 AM EDT 04/17/2025 7:53 AM EDT Bonifacio Agudelo MD LAB BLOOD ORDERABLES Final Resul t [facility] [address] [place] [address], [place] * Vitamin D, 25-OH (04/17/2025 7:40 AM EDT) Pathologist [facility] `Vitamin D 25-OH Level 38 30 - 60 ng/mL 04/17/2025 3:33 PM EDT [facility] Blood PERIPHERAL BLOOD SPECIMEN / Unknown Venipuncture / Unknown 04/17/2025 7:40 AM EDT 04/17/2025 7:53 AM EDT Bonifacio Agudelo MD LAB BLOOD ORDERABLES Final Resul t [facility] [address] [place] [address], [place] * Magnesium (04/17/2025 7:40 AM EDT) Magnesium, Blood 2.1 1.6 - 2.6 mg/dL 04/17/2025 8:27 AM EDT [facility] Blood PERIPHERAL BLOOD SPECIMEN / Unknown Venipuncture / Unknown 04/17/2025 7:40 AM EDT 04/17/2025 7:53 AM EDT Chuy Hernandez MD LAB BLOOD ORDERABLES Final R esult [facility] [address] [place] [address], [place] * Phosphorus (04/17/2025 7:40 AM EDT) Phosphorus 3.8 2.7 - 4.5 mg/dL 04/17/2025 8:27 AM EDT [facility] Blood PERIPHERAL BLOOD SPECIMEN / Unknown Venipuncture / Unknown 04/17/2025 7:40 AM EDT 04/17/2025 7:53 AM EDT Chuy Hernandez MD LAB BLOOD ORDERABLES Final R esult [facility] [address] [place] [address], [place] * (ABNORMAL) Basic Metabolic Panel (04/17/2025 7:40 AM EDT) Sodium 143 135 - 147 mmol/L 04/17/2025 8:27 AM EDT [facility] Potassium 4.0 3.5 - 5.4 mmol/L 04/17/2025 8:27 AM EDT [facility] Chloride 107 96 - 108 mmol/L 04/17/2025 8:27 AM EDT [facility] Total CO2/Bicarbonat e 25 22 - 32 mmol/L 04/17/2025 8:27 AM EDT [facility] Anion Gap 11 10 - 18 mmol/L 04/17/2025 8:27 AM EDT [facility] BUN 27(H) 6 - 20 mg/dL 04/17/2025 8:27 AM EDT [facility] Creatinine, Blood 1.10 0.50 - 1.20 mg/dL 04/17/2025 8:27 AM EDT [facility] Glucose, Blood 86 70 - 100 mg/dL 04/17/2025 8:27 AM EDT [facility] Calcium 9.2 8.4 - 10.3 mg/dL 04/17/2025 8:27 AM EDT [facility] Blood PERIPHERAL BLOOD SPECIMEN / Unknown Venipuncture / Unknown 04/17/2025 7:40 AM EDT 04/17/2025 7:53 AM EDT us Chuy Hernandez MD LAB BLOOD ORDERABLES Final R esult [facility] [address] [place] [address], [place] * (ABNORMAL) CBC (04/17/2025 7:40 AM EDT) WBC 9.29 4.00 - 10.00 K/uL 04/17/2025 8:06 AM EDT [facility] RBC 3.84(L) 4.60 - 6.10 M/uL 04/17/2025 8:06 AM EDT [facility] Hemoglobin 12.1(L) 13.7 - 17.5 g/dL 04/17/2025 8:06 AM EDT [facility] Hematocrit 36.3(L) 40.0 - 51.0 % 04/17/2025 8:06 AM EDT [facility] MCV 95 82 - 98 fL 04/17/2025 8:06 AM EDT [facility] MCH 31.5 26.0 - 32.0 pg 04/17/2025 8:06 AM EDT [facility] MCHC 33.3 32.0 - 37.0 g/dL 04/17/2025 8:06 AM EDT [facility] RDW 13.9 10.5 - 15.5 % 04/17/2025 8:06 AM EDT [facility] RDW-SD 47.5(H) 35.1 - 46.3 fL 04/17/2025 8:06 AM EDT [facility] Platelet Count 229 150 - 400 K/uL 04/17/2025 8:06 AM EDT [facility] Nucleated RBC 0 <=0 #/100 WBC 04/17/2025 8:06 AM EDT [facility] Blood PERIPHERAL BLOOD SPECIMEN / Unknown Venipuncture / Unknown 04/17/2025 7:40 AM EDT 04/17/2025 7:53 AM EDT us Chuy Hernandez MD LAB BLOOD ORDERABLES Final R esult [facility] [address] [place] [address], [place] * XR Chest 2 VW (04/16/2025 2:55 PM EDT) Anatomical Region Laterality Modality Chest Digital Radiogra phy 04/16/2025 2:59 PM EDT Impressions 04/16/2025 5:11 PM EDT Streaky right lower lobe opacity could reflect atelectasis with infection difficult to exclude in the correct clinical context. Kaylin Goetz MD, electronically signed on Apr 16 2025 05:11PM Narrative 04/16/2025 5:11 PM EDT EXAMINATION: XR CHEST 2 VW INDICATION: equivocal CXR for PNA; TECHNIQUE: Chest AP and lateral COMPARISON: Chest radiograph 15 April 2025 FINDINGS: Cardiac silhouette size is normal. Mediastinal and hilar contours are unremarkable. Pulmonary vasculature is normal. No focal consolidation. Streaky opacity is seen in the right lower lobe. No pleural effusion or pneumothorax. No acute osseous abnormalities. Cervical spinal fusion hardware is partly imaged. Procedure Note Kaylin Goetz MD - 04/16/2025 EXAMINATION: XR CHEST 2 VW INDICATION: equivocal CXR for PNA; TECHNIQUE: Chest AP and lateral COMPARISON: Chest radiograph 15 April 2025 FINDINGS: Cardiac silhouette size is normal. Mediastinal and hilar contours areunremarkable. Pulmonary vasculature is normal. No focal consolidation.Streaky opacity is seen in the right lower lobe. No pleural effusion orpneumothorax. No acute osseous abnormalities. Cervical spinal fusion hardware is partly imaged. IMPRESSION: Streaky right lower lobe opacity could reflect atelectasis with infectiondifficult to exclude in the correct clinical context. Kaylin Goetz MD, electronically signed on Apr 16 2025 05:11PM us Carter Cerda MD IMG DIAGNOSTIC IMAGING ORDERABL ES Final Result * Covid/Flu/RSV (Rapid) (04/16/2025 9:24 AM EDT) Coronavirus SARS-CoV-2 Negative Negative 04/16/2025 10:05 AM EDT [facility] Influenza A Negative Not Detected by PCR 04/16/2025 10:05 AM EDT [facility] Influenza B Negative Not Detected by PCR 04/16/2025 10:05 AM EDT [facility] RSV by PCR Negative Not Detected by PCR 04/16/2025 10:05 AM EDT [facility] Respiratory SWAB OF INTERNAL NOSE / Unknown Collection / Unknown 04/16/2025 9:24 AM EDT 04/16/2025 9:25 AM EDT Narrative [facility] - 04/16/2025 10:05 AM EDT Test performed by GeneXpert real-time PCR. us Lela Martinez MD BODY FLUIDS AND STOOLS FAIZAN DURANT Final Result [facility] [address] [place] [address], * Drug Screen, Urine (04/16/2025 6:54 AM EDT) Amphetamines Screen, Urine Presumptive Negative Presumptive Negative 04/16/2025 7:58 AM EDT [facility] Comment:[facility] amphetamine cu t-off is 1000 ng/mL. Barbiturates Screen, Urine Presumptive Negative Presumptive Negative 04/16/2025 7:58 AM EDT [facility] Comment:[facility] Barbiturate cu t-off of 200 ng/mL. Benzodiazepine Screen, Urine Presumptive Negative Presumptive Negative 04/16/2025 7:58 AM EDT [facility] Comment: [facility] Benzodiazepine cut-off is 300 ng/mL BENZODIAZEPINE IMMUNOASSAY SCREEN DOES NOT DETECT SOME DRUGS, INCLUDING LORAZEPAM, CLONAZEPAM, AND FLUNITRAZEPAM Cannabinoids Screen, Urine Presumptive Negative Presumptive Negative 04/16/2025 7:58 AM EDT [facility] Comment:[facility] Cannabinoids c ut-off is 50 ng/mL. Cocaine Metabolite Screen, Urine Presumptive Negative Presumptive Negative 04/16/2025 7:58 AM EDT [facility] Comment:[facility] Cocaine cut-of f is 300 ng/mL. Fentanyl Screen, Urine Presumptive Negative Presumptive Negative 04/16/2025 7:58 AM EDT [facility] Comment: [facility] Fentanyl cut-off 5.0 ng/mL. FENTANYL ASSAY DETECTS FENTANYL AND NORFENTANYL. FALSE POSITIVE RENTANYL RESULTS MAY OCCUR IN PATIENTS TAKING RISPERIDONE, TRAZADONE, AND LABETALOL. Methadone Screen, Urine Presumptive Negative Presumptive Negative 04/16/2025 7:58 AM EDT [facility] Comment: [facility] Methadone cut-off is 300 ng/mL. METHADONE ASSAY DETECTS METHADONE (NOT OTHER OPIATES/OPIOIDS; QUETIAPINE(SEROQUEL) MAY CAUSE A FALSE POSITIVE RESULT. Opiates Screen, Urine Presumptive Negative Presumptive Negative 04/16/2025 7:58 AM EDT [facility] Comment: [facility] Opiate cut-off is 300 ng/mL. OPIATE ASSAY DOES NOT RELIABLY DETECT SYNTHETIC OPIOIDS;SUCH METHADONE, OXYCODONE, FENTANYL, BUPRENORPHINE, TRAMADOL,;NALOXONE, MEPERIDINE. SEE ONLINE LAB MANUAL FOR DETAILS Oxycodone Screen, Urine Presumptive Negative Presumptive Negative 04/16/2025 7:58 AM EDT [facility] Comment:[facility] Oxycodone cut- off is 100 ng/mL. Urine URINE SPECIMEN / Unknown Collection / Unknown 04/16/2025 6:54 AM EDT 04/16/2025 7:17 AM EDT us Dane Ayala MD URINE ORDERABLES Fin al Result [facility] [address] [place] [address], [place] * Urine Micro Hold (04/16/2025 6:54 AM EDT) Micro Urine Reflex Hold Received 04/16/2025 10:01 AM EDT [facility] AP Urine URINE SPECIMEN / Unknown Collection / Unknown 04/16/2025 6:54 AM EDT 04/16/2025 7:12 AM EDT us Dane Ayala MD URINE ORDERABLES Fin al Result Performing Organization Address City/[facility]/ZIP Co de Phone Number [facility] AP [address] [place] [address], [place] * (ABNORMAL) Urinalysis with Reflex to Urine Culture (04/16/2025 6:54 AM EDT) Color, Urine Straw Yellow, Colorless, Straw 04/16/2025 9:31 AM EDT [facility] Clarity, Urine Clear Clear 04/16/2025 9:31 AM EDT [facility] pH, Urine 7.5 5.0 - 8.0 04/16/2025 9:31 AM EDT [facility] Protein, Urine Negative Negative 04/16/2025 9:31 AM EDT [facility] Glucose, Urine Negative Negative 04/16/2025 9:31 AM EDT [facility] Ketone, Urine Negative Negative 04/16/2025 9:31 AM EDT [facility] Bilirubin, Urine Negative Negative 04/16/2025 9:31 AM EDT [facility] Urobilinogen, Urine Normal 0.2-1.0 mg/dL 04/16/2025 9:31 AM EDT [facility] Blood, Urine Negative Negative 04/16/2025 9:31 AM EDT [facility] Leukocyte Esterase, Urine Negative Negative 04/16/2025 9:31 AM EDT [facility] Nitrite, Urine Negative Negative 04/16/2025 9:31 AM EDT [facility] Specific T[place], Urine 1.024 1.001 - 1.050 04/16/2025 9:31 AM EDT [facility] White Blood Cells, Urine <1 0 - 5 /hpf 04/16/2025 9:31 AM EDT [facility] Red Blood Cells, Urine 1 0 - 2 /hpf 04/16/2025 9:31 AM EDT [facility] Mucous Threads Rare(A) None Seen 04/16/2025 9:31 AM EDT [facility] Urine URINE SPECIMEN / Unknown Collection / Unknown 04/16/2025 6:54 AM EDT 04/16/2025 7:13 AM EDT us Dane Ayala MD URINE ORDERABLES Fin al Result Performing Organization Address City/[facility]/ZIP Co de Phone Number [facility] [address] [place] [address], [place] * CK (Creatine Kinase) (04/15/2025 11:33 PM EDT) Pathologist [facility] Creatine Kinase Total (CK) 50 47 - 322 U/L 04/16/2025 12:19 AM EDT [facility] Blood PERIPHERAL BLOOD SPECIMEN / Unknown Venipuncture / Unknown 04/15/2025 11:33 PM EDT 04/15/2025 11:38 PM EDT us Dane Ayala MD LAB BLOOD ORDERABLES Final Result Performing Organization Address City/[facility]/ZIP Co de Phone Number [facility] [address] [place] [address], [place] * (ABNORMAL) hs-Troponin T, 1hr (04/15/2025 11:33 PM EDT) Troponin T HS 83(H) <=19 ng/L 04/16/2025 12:19 AM EDT [facility] Comment: hs-cTnT<=19 ng/L in 99% of healthy individuals. hs-cTnT values of 30, 52, 100 and 1000 ng/L correspond to approximately CHARLIE Gen 4 of 0.01, 0.03, 0.1 and 1 ng/mL Blood PERIPHERAL BLOOD SPECIMEN / Unknown Venipuncture / Unknown 04/15/2025 11:33 PM EDT 04/15/2025 11:38 PM EDT us Dane Ayala MD LAB BLOOD ORDERABLES Final Result [facility] [address] [place] [address], [place] * Ammonia (04/15/2025 11:33 PM EDT) Ammonia umol/L 11 10 - 60 umol/L 04/16/2025 12:21 AM EDT [facility] Blood PERIPHERAL BLOOD SPECIMEN / Unknown Venipuncture / Unknown 04/15/2025 11:33 PM EDT 04/15/2025 11:37 PM EDT us Dane Ayala MD LAB BLOOD ORDERABLES Final Result Performing Organization Address City/[facility]/ZIP Co de Phone Number [facility] [address] [place] [address], [place] * Lactic Acid with 3 Hour Reflex (04/15/2025 11:33 PM EDT) Lactic Acid 0.9 0.5 - 2.0 mmol/L 04/15/2025 11:40 PM EDT [facility] Blood PERIPHERAL BLOOD SPECIMEN / Unknown Venipuncture / Unknown 04/15/2025 11:33 PM EDT 04/15/2025 11:36 PM EDT us Dane Ayala MD LAB BLOOD ORDERABLES Final Result Performing Organization Address City/[facility]/ZIP Co de Phone Number [facility] [address] [place] [address], [place] * BB Retype (04/15/2025 11:33 PM EDT) BB RETYPE Received 04/16/2025 8:01 AM EDT [facility] Blood Venipuncture / Unknown 04/15/2025 11:33 PM EDT 04/15/2025 11:48 PM EDT us Dane Ayala MD BLOOD BANK TEST ORDE BHARGAV Final Result [facility] [address] [place] [address], [place] * MRI Brain Without Contrast (04/15/2025 11:19 PM EDT) Anatomical Region Laterality Modality Head Magnetic Resonan ce 04/15/2025 11:4 7 PM EDT Impressions 04/16/2025 11:44 AM EDT No acute intracranial abnormality. Specifically, no acute or recent infarction. WET READ: WET READ:~No acute intracranial abnormality. Angel Luis Tompkins [id number] [id number]. BY ELECTRONICALLY SIGNING THIS REPORT, I THE ATTENDING PHYSICIAN ATTEST THAT I HAVE REVIEWED THE IMAGES FOR THE ABOVE PROCEDURE(S) AND AGREE WITH THE FINDINGS DOCUMENTED. MD Deny Riley MD, electronically signed on Apr 16 2025 11:44AM Narrative 04/16/2025 11:44 AM EDT EXAMINATION: MR BRAIN WO CONTRAST. [id number] MR HEAD. INDICATION: Stroke protocol. DR. DANE AYALA. TECHNIQUE: Non-contrast multiplanar, multisequence MRI of the brain was obtained. COMPARISON Head CT 15 April 2024, head CT 15 April 2025. FINDINGS: There is no evidence of intracranial hemorrhage, edema, masses, shift, acute or recent infarction. No diffusion abnormalities are detected. Prominent ventricles and sulci are likely related to involutional change. Major intracranial flow voids are preserved. Mild mucosal thickening of bilateral ethmoid air cells. Bilateral mastoid air cells and middle ear cavities are well aerated. The globes are normal. Procedure Note Deny Pavon MD - 04/16/2025 EXAMINATION: MR BRAIN WO CONTRAST. [id number] MR HEAD. INDICATION: Stroke protocol. DR. DANE AYALA. TECHNIQUE: Non-contrast multiplanar, multisequence MRI of the brain was obtained. COMPARISON Head CT 15 April 2024, head CT 15 April 2025. FINDINGS: There is no evidence of intracranial hemorrhage, edema, masses, shift,acute or recent infarction. No diffusion abnormalities are detected.Prominent ventricles and sulci are likely related to involutionalchange. Major intracranial flow voids are preserved. Mild mucosal thickening ofbilateral ethmoid air cells. Bilateral mastoid air cells and middle earcavities are well aerated. The globes are normal. IMPRESSION: No acute intracranial abnormality. Specifically, no acute or recentinfarction. WET READ: WET READ:~No acute intracranial abnormality. [facility] [id number]. BY ELECTRONICALLY SIGNING THIS REPORT, I THE ATTENDING PHYSICIAN ATTESTTHAT I HAVE REVIEWED THE IMAGES FOR THE ABOVE PROCEDURE(S) AND AGREE WITHTHE FINDINGS DOCUMENTED. MD Deny Riley MD, electronically signed on Apr 16 2025 11:44AM us Dane Ayala MD [facility] MRI ORDERABLES F inal Result * (ABNORMAL) Toxicology Screen, Blood (04/15/2025 9:18 PM EDT) Acetaminophen Result,Blood <5 <5 =Not Detected ug/mL 04/15/2025 11:37 PM EDT [facility] Alcohol <10 <10 = Not Detected mg/dL 04/15/2025 11:37 PM EDT [facility] Salicylate Level, Blood <1(L) <4 = Not Detected mg/dL 04/15/2025 11:37 PM EDT [facility] Blood PERIPHERAL BLOOD SPECIMEN / Unknown Venipuncture / Unknown 04/15/2025 9:18 PM EDT 04/15/2025 10:29 PM EDT Dane Ayala MD LAB BLOOD ORDERABLES Final Result Performing Organization Address [facility] Co de Phone Number [facility] [address] [place] [address], [place] * (ABNORMAL) hs-Troponin T (reflex 1hr, 3hr) (04/15/2025 9:18 PM EDT) Troponin T HS 85(H) <=19 ng/L 04/15/2025 10:59 PM EDT [facility] Comment: hs-cTnT<=19 ng/L in 99% of healthy individuals. hs-cTnT values of 30, 52, 100 and 1000 ng/L correspond to approximately CHARLIE Gen 4 of 0.01, 0.03, 0.1 and 1 ng/mL Blood PERIPHERAL BLOOD SPECIMEN / Unknown Venipuncture / Unknown 04/15/2025 9:18 PM EDT 04/15/2025 10:29 PM EDT Dane Ayala MD LAB BLOOD ORDERABLES Final Result Performing Organization Address [facility] de Phone Number [facility] [address] [place] [address], [place] * XR Chest 2 VW (04/15/2025 8:05 PM EDT) Anatomical Region Laterality Modality Chest Digital Radiogra phy 04/15/2025 9:36 PM EDT Impressions 04/15/2025 9:35 PM EDT Cardiac and mediastinal silhouettes are within normal limits. In the retrocardiac region of the left lower lobe, there is some patchy opacity on the frontal view, presumed to be consolidation. Difficult to evaluate for correlate on the lateral view as there appears to be substantial overlying soft tissue artifact along the posterior chest, which is extrinsic to the lungs. Repeat lateral radiographs may be useful, after removing these overlying structures. Casper Serrano MD, electronically signed on Apr 15 2025 09:35PM Narrative 04/15/2025 9:35 PM EDT EXAMINATION: XR CHEST 2 VW INDICATION: infectious workup, altered; TECHNIQUE: Chest PA and lateral. COMPARISON: 23 October 2009. Procedure Note Casper Serrano MD - 04/15/2025 EXAMINATION: XR CHEST 2 VW INDICATION: infectious workup, altered; TECHNIQUE: Chest PA and lateral. COMPARISON: 23 October 2009. IMPRESSION: Cardiac and mediastinal silhouettes are within normal limits. In theretrocardiac region of the left lower lobe, there is some patchy opacityon the frontal view, presumed to be consolidation. Difficult to evaluatefor correlate on the lateral view as there appears to be substantial overlying soft tissue artifact along theposterior chest, which is extrinsic to the lungs. Repeat lateralradiographs may be useful, after removing these overlying structures. Casper Serrano MD, electronically signed on Apr 15 2025 09:35PM us Dane Ayala MD IMG DIAGNOSTIC IMAGI NG ORDERABLES Final Result * ECG 12 lead (04/15/2025 6:53 PM EDT) Ventricular Heart Rate 98 BPM EKG BUR MUSE Atrial Heart Rate 98 BPM EKG BUR MUSE LA Interval 156 ms EKG BUR MUSE QRSD Interval 108 ms EKG BUR MUSE QT Interval 392 ms EKG BUR MUSE QTC Interval 500 ms EKG BUR MUSE P Mathews 63 degrees EKG BUR MUSE R Mathews -23 degrees EKG BUR MUSE T Wave Mathews 65 degrees EKG BUR MUSE 04/15/2025 6:53 PM EDT 04/18/2025 6:25 AM EDT Narrative EKG BUR MUSE - 04/18/2025 6:25 AM EDT Normal sinus rhythm Minimal voltage criteria for LVH, may be normal variant ( Donny product ) Prolonged QT interval Abnormal ECG When compared with ECG of 14-Apr-2024 19:05, No significant change was found Procedure Note Ian Wilder MD - 04/18/2025 Normal sinus rhythm Minimal voltage criteria for LVH, may be normal variant ( [place] product) Prolonged QT interval Abnormal ECG When compared with ECG of 14-Apr-2024 19:05, No significant change was found us Dane Ayala MD ECG ORDERABLES Patricia sammy Result EKG BUR MUSE [address] [place] [id number] * CT Angiogram Head Neck Code Stroke : Arteriogram (04/15/2025 6:40 PM EDT) Anatomical Region Laterality Modality Head Computed Tomogra phy 04/15/2025 6:37 PM EDT Impressions 04/16/2025 10:[address]: 1. No acute intracranial pathology. CTA HEAD/NECK: 1. Marked vertebral body osteophytosis at C5 results in moderate focal stenosis of the right vertebral artery. 2. Otherwise, no large vessel occlusion, flow-limiting stenosis, aneurysm or vascular malformation. 3. Status post C2-C5 ACDF. Persistent moderate multilevel degenerative change throughout the visualized spine. WET READ: WET READ:~This is a wet read. ~~Noncontrast CT head: no evidence of acute large vascular territory infarction or hemorrhage. ~~Patent [place] without evidence of substantial stenosis or occlusion.~~Patent bilateral cervical carotid and vertebral arteries without evidence of stenosis >70% by NASCET criteria, occlusion, or dissection .~~Full read pending by neuroradiology. ~ Valentin Mena [id number]: BY ELECTRONICALLY SIGNING THIS REPORT, I THE ATTENDING PHYSICIAN ATTEST THAT I HAVE REVIEWED THE IMAGES FOR THE ABOVE PROCEDURE(S) AND AGREE WITH THE FINDINGS DOCUMENTED. Red Pavon MD, electronically signed on Apr 16 2025 10:13AM Narrative 04/16/2025 10:13 AM EDT EXAMINATION: CTA HEAD/NECK STROKE [id number] CT HEAD NECK. INDICATION: 69-year-old male with headache. TECHNIQUE: Contiguous MDCT axial images were obtained through the brain without contrast material. Subsequently, helically acquired rapid axial imaging was performed from the aortic arch through the brain during the intravenous administration of 70 mL of Omnipaque 350 nonionic contrast agent. Three-dimensional reformatted images were generated on a dedicated workstation. This report is based on interpretation of all of these images. DOSE: Acquisition sequence: 1) Sequenced Acquisition 18.0 s, 18.0 cm; CTDIvol = 50.2 mGy (Head) DLP = 903.1 mGy-cm 2) Sequenced Acquisition 1.6 s, 4.0 cm; CTDIvol = 50.2 mGy (Head) DLP = 200.7 mGy-cm 3) Sequenced Acquisition 2.0 s, 2.0 cm; CTDIvol = 50.2 mGy (Head) DLP = 100.3 mGy-cm 4) Stationary Acquisition 4.5 s, 0.5 cm; CTDIvol = 49.0 mGy (Head) DLP = 24.5 mGy-cm 5) Spiral Acquisition 5.7 s, 43.2 cm; CTDIvol = 33.2 mGy (Head) DLP = 1,434.0 mGy-cm Total DLP (Head) = 2,663 mGy-cm. COMPARISON: Head CT dated 15 April 2024 FINDINGS: CT HEAD WITHOUT CONTRAST: There is no evidence of infarction,hemorrhage,edema,ormass effect. The ventricles and sulci are normal in size and configuration for the patient's age. There is mild mucosal thickening in in the paranasal sinuses. Mastoid air cells,and middle ear cavities are clear. The orbits are normal. CTA HEAD: The vessels of the [place] and their principal intracranial branches are patent without stenosis, occlusion, or aneurysm. The major dural venous sinuses are patent. CTA NECK: The visualized thoracic aorta is normal. There is conventional three-vessel configuration of the great vessels. Bilateral carotid and vertebral artery origins are patent. There is no evidence of internal carotid stenosis by NASCET criteria. The carotidandleft vertebral arteries and their major branches are patent without evidence of stenosis or occlusion. At approximately the C5 level, marked vertebral body osteophytosis results in moderate focal stenosis of the right vertebral artery (series 12, images 1-2). The vertebral arteries are codominant. OTHER: Patient is status post C2-C5 ACDF. There is moderate multilevel degenerative change throughout the visualized spine. The visualized portion of the lungs are clear. The thyroid gland appears normal. There is no lymphadenopathy by CT size criteria. Procedure Note Deny Pavon MD - 04/16/2025 EXAMINATION: CTA HEAD/NECK STROKE [id number] CT HEAD NECK. INDICATION: 69-year-old male with headache. TECHNIQUE: Contiguous MDCT axial images were obtained through the brain withoutcontrast material. Subsequently, helically acquired rapid axial imagingwas performed from the aortic arch through the brain during theintravenous administration of 70 mL of Omnipaque 350 nonionic contrast agent. Three-dimensional reformatted images were generated on a dedicatedworkstation. This report is based on interpretation of all of theseimages. DOSE: Acquisition sequence: 1) Sequenced Acquisition 18.0 s, 18.0 cm; CTDIvol = 50.2 mGy (Head) DLP= 903.1 mGy-cm 2) Sequenced Acquisition 1.6 s, 4.0 cm; CTDIvol = 50.2 mGy (Head) DLP =200.7 mGy-cm 3) Sequenced Acquisition 2.0 s, 2.0 cm; CTDIvol = 50.2 mGy (Head) DLP =100.3 mGy-cm 4) Stationary Acquisition 4.5 s, 0.5 cm; CTDIvol = 49.0 mGy (Head) DLP= 24.5 mGy-cm 5) Spiral Acquisition 5.7 s, 43.2 cm; CTDIvol = 33.2 mGy (Head) DLP =1,434.0 mGy-cm Total DLP (Head) = 2,663 mGy-cm. COMPARISON: Head CT dated 15 April 2024 FINDINGS: CT HEAD WITHOUT CONTRAST: There is no evidence of infarction,hemorrhage,edema,ormass effect. Theventricles and sulci are normal in size and configuration for thepatient's age. There is mild mucosal thickening in in the paranasal sinuses. Mastoid aircells,and middle ear cavities are clear. The orbits are normal. CTA HEAD: The vessels of the [place] and their principal intracranialbranches are patent without stenosis, occlusion, or aneurysm. The majordural venous sinuses are patent. CTA NECK: The visualized thoracic aorta is normal. There is conventional three-vessel configuration of the great vessels. Bilateral carotid and vertebral artery origins are patent. There is no evidence of internal carotid stenosis by NASCET criteria. The carotidandleft vertebral arteries and their major branches are patentwithout evidence of stenosis or occlusion. At approximately the C5 level, marked vertebral body osteophytosis resultsin moderate focal stenosis of the right vertebral artery (series 12,images 1-2). The vertebral arteries are codominant. OTHER: Patient is status post C2-C5 ACDF. There is moderate multileveldegenerative change throughout the visualized spine. The visualized portion of the lungs are clear. The thyroid gland appears normal. There is no lymphadenopathy by CT size criteria. IMPRESSION: HEAD CT: 1. No acute intracranial pathology. CTA HEAD/NECK: 1. Marked vertebral body osteophytosis at C5 results in moderate focalstenosis of the right vertebral artery. 2. Otherwise, no large vessel occlusion, flow-limiting stenosis, aneurysmor vascular malformation. 3. Status post C2-C5 ACDF. Persistent moderate multilevel degenerativechange throughout the visualized spine. WET READ: WET READ:~This is a wet read. ~~Noncontrast CT head: no evidence of acutelarge vascular territory infarction or hemorrhage. ~~Patent [place] without evidence of substantial stenosis or occlusion.~~Patentbilateral cervical carotid and vertebral arteries without evidence of stenosis >70% by NASCET criteria,occlusion, or dissection .~~Full read pending by neuroradiology. ~ Valentin Mena [id number]: BY ELECTRONICALLY SIGNING THIS REPORT, I THE ATTENDING PHYSICIAN ATTESTTHAT I HAVE REVIEWED THE IMAGES FOR THE ABOVE PROCEDURE(S) AND AGREE WITHTHE FINDINGS DOCUMENTED. Red Pavon MD, electronically signed on Apr 16 2025 10:13AM us Dane Ayala MD IMG CT ORDERABLES Fi nal Result * TSH (04/15/2025 6:17 PM EDT) TSH 1.50 0.27 - 4.20 uIU/mL 04/15/2025 10:40 PM EDT [facility] Blood PERIPHERAL BLOOD SPECIMEN / Unknown Venipuncture / Unknown 04/15/2025 6:17 PM EDT 04/15/2025 6:20 PM EDT us Dane Ayala MD LAB BLOOD ORDERABLES Final Result [facility] [address] [place] [address], * (ABNORMAL) CBC and Differential (04/15/2025 6:17 PM EDT) WBC 9.11 4.00 - 10.00 K/uL 04/15/2025 6:25 PM EDT [facility] RBC 4.18(L) 4.60 - 6.10 M/uL 04/15/2025 6:25 PM EDT [facility] Hemoglobin 13.2(L) 13.7 - 17.5 g/dL 04/15/2025 6:25 PM EDT [facility] Hematocrit 39.6(L) 40.0 - 51.0 % 04/15/2025 6:25 PM EDT [facility] MCV 95 82 - 98 fL 04/15/2025 6:25 PM EDT [facility] MCH 31.6 26.0 - 32.0 pg 04/15/2025 6:25 PM EDT [facility] MCHC 33.3 32.0 - 37.0 g/dL 04/15/2025 6:25 PM EDT [facility] RDW 13.9 10.5 - 15.5 % 04/15/2025 6:25 PM EDT [facility] RDW-SD 48.0(H) 35.1 - 46.3 fL 04/15/2025 6:25 PM EDT [facility] Platelet Count 229 150 - 400 K/uL 04/15/2025 6:25 PM EDT [facility] Nucleated RBC 0 <=0 #/100 WBC 04/15/2025 6:25 PM EDT [facility] Neutrophil 77.6(H) 34.0 - 71.0 % 04/15/2025 6:25 PM EDT [facility] Lymphocyte 13.5(L) 19.0 - 53.0 % 04/15/2025 6:25 PM EDT [facility] Monocyte 7.8 5.0 - 13.0 % 04/15/2025 6:25 PM EDT [facility] Eosinophil 0.0(L) 1.0 - 7.0 % 04/15/2025 6:25 PM EDT [facility] Basophil 0.3 0.0 - 1.0 % 04/15/2025 6:25 PM EDT [facility] Immature Granulocyte (Villard, Myelo, Promyelocyte) 0.8(H) 0.0 - 0.6 % 04/15/2025 6:25 PM EDT [facility] Absolute Neutrophil Count 7.07(H) 1.60 - 6.10 K/uL 04/15/2025 6:25 PM EDT [facility] Absolute Lymphocyte Count 1.23 1.20 - 3.70 K/uL 04/15/2025 6:25 PM EDT [facility] Absolute Monocyte Count 0.71 0.20 - 0.80 K/uL 04/15/2025 6:25 PM EDT [facility] Absolute Eosinophil Count 0.00(L) 0.04 - 0.54 K/uL 04/15/2025 6:25 PM EDT [facility] Absolute Basophil Count 0.03 0.01 - 0.08 K/uL 04/15/2025 6:25 PM EDT [facility] Absolute Immature Granulocyte (Villard, Myelo, Promyelocyte) 0.07 0.00 - 0.09 K/uL 04/15/2025 6:25 PM EDT [facility] Blood PERIPHERAL BLOOD SPECIMEN / Unknown Venipuncture / Unknown 04/15/2025 6:17 PM EDT 04/15/2025 6:20 PM EDT us Dane Ayala MD LAB BLOOD ORDERABLES Final Result [facility] [address] [place] [address], [place] * Type and Screen (04/15/2025 6:17 PM EDT) ABO and Rh B POS 04/15/2025 7:42 PM EDT [facility] Antibody Screen NEG 7:42 PM EDT [facility] TS Expiration Date 04/18/2025 23:59 04/15/2025 7:42 PM EDT [facility] Blood Venipuncture / Unknown 04/15/2025 6:17 PM EDT 04/15/2025 6:41 PM EDT us Dane Ayala MD BLOOD BANK TEST ORDE RABLES Final Result [facility] [address] [place] [address], [place] * (ABNORMAL) Troponin (04/15/2025 6:17 PM EDT) Troponin T HS 82(H) <=19 ng/L 04/15/2025 6:59 PM EDT [facility] Comment: hs-cTnT<=19 ng/L in 99% of healthy individuals. hs-cTnT values of 30, 52, 100 and 1000 ng/L correspond to approximately CHARLIE Gen 4 of 0.01, 0.03, 0.1 and 1 ng/mL Blood PERIPHERAL BLOOD SPECIMEN / Unknown Venipuncture / Unknown 04/15/2025 6:17 PM EDT 04/15/2025 6:20 PM EDT us Dane Ayala MD LAB BLOOD ORDERABLES Final Result Performing Organization Address [facility]/ZIP Co de Phone Number [facility] [address] [place] [address], [place] * (ABNORMAL) APTT (04/15/2025 6:17 PM EDT) PTT 42(H) 25 - 36 s 04/15/2025 7:35 PM EDT [facility] Blood PERIPHERAL BLOOD SPECIMEN / Unknown Venipuncture / Unknown 04/15/2025 6:17 PM EDT 04/15/2025 6:20 PM EDT us Dane Ayala MD LAB BLOOD ORDERABLES Final Result Performing Organization Address City/[facility]/ZIP Co de Phone Number [facility] [address] [place] [address], [place] * Prothrombin Time - INR (04/15/2025 6:17 PM EDT) Prothrombin Time 11.6 9.4 - 12.5 s 04/15/2025 7:35 PM EDT [facility] INR 1.1 0.9 - 1.1 04/15/2025 7:35 PM EDT [facility] Blood PERIPHERAL BLOOD SPECIMEN / Unknown Venipuncture / Unknown 04/15/2025 6:17 PM EDT 04/15/2025 6:20 PM EDT us Dane Ayala MD LAB BLOOD ORDERABLES Final Result [facility] [address] [place] [address], * (ABNORMAL) Comprehensive Metabolic Panel (04/15/2025 6:17 PM EDT) Pathologist [facility] Sodium 142 135 - 147 mmol/L 04/15/2025 6:59 PM EDT [facility] Potassium 3.9 3.5 - 5.4 mmol/L 04/15/2025 6:59 PM EDT [facility] Chloride 103 96 - 108 mmol/L 04/15/2025 6:59 PM EDT [facility] Total CO2/Bicarbonate 27 22 - 32 mmol/L 04/15/2025 6:59 PM EDT [facility] Anion Gap 12 10 - 18 mmol/L 04/15/2025 6:59 PM EDT [facility] BUN 25(H) 6 - 20 mg/dL 04/15/2025 6:59 PM EDT [facility] Creatinine, Blood 1.10 0.50 - 1.20 mg/dL 04/15/2025 6:59 PM EDT [facility] Glucose, Blood 104(H) 70 - 100 mg/dL 04/15/2025 6:59 PM EDT [facility] Calcium 9.8 8.4 - 10.3 mg/dL 04/15/2025 6:59 PM EDT [facility] Total Protein 6.8 6.4 - 8.3 g/dL 04/15/2025 6:59 PM EDT [facility] Albumin, Blood 3.9 3.5 - 5.2 g/dL 04/15/2025 6:59 PM EDT [facility] Globulin Result 2.9 2.0 - 4.0 g/dL 04/15/2025 6:59 PM EDT [facility] AST (SGOT) 19 0 - 40 U/L 04/15/2025 6:59 PM EDT [facility] ALT (SGPT) <5 0 - 40 U/L 04/15/2025 6:59 PM EDT [facility] Alkaline Phosphatase 182(H) 40 - 130 U/L 04/15/2025 6:59 PM EDT [facility] Total Bilirubin 0.4 0.0 - 1.5 mg/dL 04/15/2025 6:59 PM EDT [facility] Estimated GFR(CKD-EPI) 74 mL/min/BSA 04/15/2025 6:59 PM EDT [facility] Blood PERIPHERAL BLOOD SPECIMEN / Unknown Venipuncture / Unknown 04/15/2025 6:17 PM EDT 04/15/2025 6:20 PM EDT us Dane Ayala MD LAB BLOOD ORDERABLES Final Result Performing Organization Address City/[facility]/ZIP Co de Phone Number [facility] [address] [place] [address], [place] * (ABNORMAL) POCT Glucose (04/15/2025 6:15 PM EDT) Glucose, POC 110(H) 70 - 100 mg/dL 04/15/2025 6:15 PM EDT [facility] Comment: @Serial Uampfv=[id number] @Technical Sales Specialist CD=[id number] Blood 04/15/2025 6:15 PM EDT 04/15/2025 6:15 PM EDT us Dane Ayala MD POCT ORDERABLES - DE VICE Final Result [facility] [address] 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 Abnormal electrocardiography Catat[place] Other symptoms involving nervous and musculoskeletal systems Aspiration into airway, sequela Schizoaffective disorder (HCC) Schizoaffective disorder, unspecified condition documented in this encounter Admitting Diagnoses Diagnosis Aspiration into airway, sequela documented in this encounter Administered Medications Inactive Administered Medications - up to 3 most recent administrations Medication Order MAR Action Action Date Dose Rate Site acetaminophen (TYLENOL) tablet 1,000 mg 1,000 mg, G-tube, Once, 1 dose, On Sun04/16/25 at 1000 Given 04/16/2025 9:47 AM EDT 1,000 mg acetaminophen (TYLENOL) tablet 1,000 mg 1,000 mg, G-tube, Every 8 hours scheduled, First dose (after last modification) on Sun05/22/25 at 1600, Until Discontinued Given 06/08/2025 5:55 PM EDT 1,000 mg Given 06/08/2025 8:57 AM EDT 1,000 mg Given 06/07/2025 6:04 PM EDT 1,000 mg acetaminophen (TYLENOL) tablet 1,000 mg 1,000 mg, G-tube, 3 times daily, First dose (after last modification) on Sun06/08/25 at 2200, Until Discontinued Given 06/25/2025 3:36 PM EDT 1,000 mg Given 06/25/2025 9:41 AM EDT 1,000 mg Given 06/24/2025 9:13 PM EDT 1,000 mg acetaminophen (TYLENOL) tablet 650 mg 650 mg, Oral, Every 6 hours PRN, Starting on Sun04/29/25 at 0734, Until Sun05/22/25 at 1110, moderate (4-6) pain, For foot or abdominal pain Given 05/21/2025 11:07 AM EDT 650 mg Given 05/20/2025 2:08 PM EDT 650 mg Given 05/05/2025 12:42 AM EDT 650 mg acetylcysteine (MUCOMYST) 200 mg/mL (20 %) NEBULIZER solution 600 mg 600 mg, Nebulization, Every 4 hours scheduled, 12 doses, First dose on Sun05/28/25 at 0800, Last dose on [facility] 05/30/25 at 0400 Given 05/30/2025 5:43 AM EDT 600 mg Given 05/30/2025 12:00 AM EDT 600 mg Given 05/29/2025 9:26 PM EDT 600 mg atorvaSTATin (LIPITOR) tablet 20 mg 20 mg, G-tube, At bedtime, First dose (after last modification) on Sun04/16/25 at 2100, Until Discontinued Given 04/19/2025 11:21 PM EDT 20 mg Given 04/16/2025 9:12 PM EDT 20 mg atorvaSTATin (LIPITOR) tablet 20 mg 20 mg, G-tube, At bedtime, First dose (after last modification) on [facility] 04/20/25 at 2200, Until Discontinued Given 06/24/2025 9:08 PM EDT 20 mg Given 06/23/2025 9:20 PM EDT 20 mg Given 06/22/2025 10:21 PM EDT 20 mg barium sulfate (VARIBAR NECTAR) 40 % (w/v) oral suspension Susp 15 mL 15 mL, Oral, Once in imaging, Starting on Sun06/11/25 at 1229, For 1 dose Given 06/11/2025 10:15 AM EDT 15 mL barium sulfate (VARIBAR THIN LIQUID) 81 % (w/w) suspension 30 mL 30 mL, Oral, Once in imaging, Starting on Sun06/11/25 at 1229, For 1 dose, Shake well. Given 06/11/2025 10:2 0 AM EDT 30 mL barium sulfate (VARIBAR) oral paste 15 mL 15 mL, Oral, Once in imaging, Starting on Sun06/11/25 at 1228, For 1 dose Given 06/11/2025 10:21 AM EDT 15 mL benzonatate (TESSALON) capsule 100 mg 100 mg, Oral, 3 times daily, First dose on Sun05/27/25 at 1100, Until Discontinued Given 05/30/2025 10:23 AM EDT 100 mg Given 05/28/2025 4:38 PM EDT 100 mg Given 05/28/2025 8:32 AM EDT 100 mg bisacodyl (DULCOLAX) suppository 10 mg 10 mg, Rectal, Daily PRN, Starting on Sun05/02/25 at 1623, Until Sun06/25/25 at 2133, constipation Given 05/02/2025 8:43 PM EDT 10 mg buPROPion (WELLBUTRIN) tablet 100 mg 100 mg, G-tube, 3 times daily, First dose (after last modification) on Sun04/16/25 at 2200, Until Discontinued, On hold since Sun05/11/2025 at 1555 until manually unheld Given 05/10/2025 8:32 PM EDT 100 mg Given 05/10/2025 3:25 PM EDT 100 mg Given 05/10/2025 8:27 AM EDT 100 mg calcium carbonate (TUMS) chewable tablet 1,000 mg 1,000 mg, Oral, 3 times daily PRN, Starting on Sun04/18/25 at 1443, Until Sun05/22/25 at 1110, indigestion, heartburn Given 05/19/2025 8:57 AM EDT 1,000 mg Given 05/18/2025 10:31 PM EDT 1,000 mg calcium carbonate (TUMS) chewable tablet 1,000 mg 1,000 mg, G-tube, 3 times daily PRN, Starting on Sun05/22/25 at 1058, Until Sun06/25/25 at 2133, indigestion, heartburn Given 06/21/2025 3:52 PM EDT 1,000 mg Given 06/14/2025 4:46 PM EDT 1,000 mg Given 06/11/2025 5:23 AM EDT 1,000 mg carbidopa-levodopa (SINEMET) 25-100 mg per tablet 0.5 tablet 0.5 tablet, G-tube, 3 times daily, 11 doses, First dose on Sun05/20/25 at 0900, Last dose on Sun05/23/25 at 1600 Given 05/23/2025 6:09 PM EDT 0.5 ta blets Given 05/23/2025 8:58 AM EDT 0.5 tablets Given 05/22/2025 10:12 PM EDT 0.5 tablets carbidopa-levodopa (SINEMET) 25-100 mg per tablet 0.5 tablet 0.5 tablet, G-tube, 3 times daily, 12 doses, First dose (after last reorder) on Sun05/24/25 at 0930, Last dose on Sun05/27/25 at 2200 Given 2025 9:52 PM EDT 0.5 tablets Given 2025 3:34 PM EDT 0.5 tablets Given 2025 9:43 AM EDT 0.5 tablets carbidopa-levodopa (SINEMET) 25-100 mg per tablet 1 tablet 1 tablet, G-tube, 3 times daily, First dose (after last modification) on Sun05/12/25 at 1630, Until Discontinued Given 05/16/2025 9:53 AM EDT 1 tablet Given 05/15/2025 9:31 PM EDT 1 tablet Given 05/15/2025 5:39 PM EDT 1 tablet carbidopa-levodopa (SINEMET) 25-100 mg per tablet 1 tablet 1 tablet, G-tube, 3 times daily, 11 doses, First dose (after last modification) on Sun05/16/25 at 1600, Last dose on Sun05/19/25 at 2200 Given 05/19/2025 4:52 PM EDT 1 tablet Given 05/19/2025 8:59 AM EDT 1 tablet Given 05/18/2025 10:34 PM EDT 1 tablet carbidopa-levodopa (SINEMET) 25-100 mg per tablet 1.5 tablet 1.5 tablet, Oral, 3 times daily, First dose on Sun04/16/25 at 0000, Until Discontinued Given 04/16/2025 12:25 AM EDT 1.5 tablets carbidopa-levodopa (SINEMET) 25-100 mg per tablet 2 tablet 2 tablet, Oral, 3 times daily, First dose (after last modification) on Sun04/16/25 at 0900, Until Discontinued Given 04/16/2025 9:11 AM EDT 2 table ts carbidopa-levodopa (SINEMET) 25-100 mg per tablet 2 tablet 2 tablet, G-tube, 3 times daily, First dose (after last modification) on Sun04/16/25 at 1600, Until Discontinued Given 05/10/2025 8:32 PM EDT 2 tablet s Given 05/10/2025 3:25 PM EDT 2 tablets Given 05/10/2025 8:27 AM EDT 2 tablets cefepime (MAXIPIME) 2 g in sodium chloride 0.9% (NS) MBP 2 g, Intravenous, Administer over 30 Minutes, Once, On Sun05/27/25 at 1600, For 1 dose, First dose administered over 30 minutes; Second dose scheduled 6 hours later. All subsequent doses administer over 3 hours (180 min), Indication: Pneumonia (HCAP/HAP non-ICU), Has this order been approved by ID/AST? Discussed with and approved by Antimicrobial Stewardship provider (pager [phone])., Select the name of the APPROVING AST PROVIDER: Jaziel Miller, Routine New Bag 2025 5:54 PM EDT 2 g 200 mL/hr cefepime (MAXIPIME) 2 g in sodium chloride 0.9% (NS) MBP 2 g, Intravenous, Administer over 180 Minutes, Every 12 hours, First dose (after last modification) on Kristy 05/28/25 at 0000, For 7 days, Administer over 3 hours (180 min), Indication: Pneumonia (HCAP/HAP non-ICU), Has this order been approved by ID/AST? Discussed with and approved by Antimicrobial Stewardship provider (pager [phone])., Select the name of the APPROVING AST PROVIDER: Jaziel Miller, Routine New Bag 06/02/2025 12:39 PM EDT 2 g 33.3 mL/hr New Bag 06/02/2025 12:13 AM EDT 2 g 33.3 mL/hr New Bag 06/01/2025 12:00 PM EDT 2 g 33.3 mL/hr cloZAPine (CLOZARIL) tablet 100 mg 100 mg, Oral, User specified (Daily), First dose on Sun04/29/25 at 1500, Until Discontinued Given 04/30/2025 4:16 PM EDT 100 mg Given 04/29/2025 3:19 PM EDT 100 mg cloZAPine (CLOZARIL) tablet 100 mg 100 mg, G-tube, At bedtime, First dose (after last modification) on Sun05/05/25 at 2100, Until Discontinued Given 05/05/2025 9:01 PM EDT 100 mg cloZAPine (CLOZARIL) tablet 100 mg 100 mg, G-tube, At bedtime, First dose (after last modification) on Sun05/06/25 at 2100, Until Discontinued Given 05/10/2025 8:32 PM EDT 100 mg Given 05/09/2025 8:56 PM EDT 100 mg Given 05/08/2025 8:28 PM EDT 100 mg cloZAPine (CLOZARIL) tablet 125 mg 125 mg, G-tube, At bedtime, First dose (after last modification) on Sun04/16/25 at 2100, Until Discontinued Given 04/19/2025 1:27 PM EDT 125 mg Given 04/16/2025 9:13 PM EDT 125 mg cloZAPine (CLOZARIL) tablet 125 mg 125 mg, G-tube, At bedtime, First dose (after last modification) on Sun04/22/25 at 2100, Until Discontinued Given 04/25/2025 9:57 PM EDT 125 mg Given 04/24/2025 10:25 PM EDT 125 mg Given 04/23/2025 10:01 PM EDT 125 mg cloZAPine (CLOZARIL) tablet 125 mg 125 mg, G-tube, At bedtime, First dose (after last modification) on Sun04/27/25 at 2100, Until Discontinued Given 04/28/2025 9:35 PM EDT 125 mg cloZAPine (CLOZARIL) tablet 125 mg 125 mg, G-tube, At bedtime, First dose (after last modification) on Sun05/11/25 at 2100, Until Discontinued Given 05/14/2025 7:56 PM EDT 125 mg Given 05/13/2025 9:06 PM EDT 125 mg Given 05/12/2025 8:51 PM EDT 125 mg cloZAPine (CLOZARIL) tablet 150 mg 150 mg, G-tube, At bedtime, First dose (after last modification) on Sun05/15/25 at 2100, Until Discontinued Given 06/07/2025 10:12 PM EDT 150 mg Given 06/06/2025 8:14 PM EDT 150 mg Given 06/05/2025 8:29 PM EDT 150 mg cloZAPine (CLOZARIL) tablet 175 mg 175 mg, G-tube, At bedtime, First dose (after last modification) on Sun04/20/25 at 2200, Until Discontinued Given 04/22/2025 3:27 AM EDT 175 mg Given 04/20/2025 10:20 PM EDT 175 mg cloZAPine (CLOZARIL) tablet 175 mg 175 mg, G-tube, At bedtime, First dose (after last modification) on Sun06/08/25 at 2100, Until Discontinued Given 06/11/2025 8:09 PM EDT 175 mg Given 06/10/2025 8:15 PM EDT 175 mg Given 06/09/2025 8:26 PM EDT 175 mg cloZAPine (CLOZARIL) tablet 200 mg 200 mg, G-tube, At bedtime, First dose (after last modification) on Sun06/12/25 at 2100, Until Discontinued Given 06/24/2025 9:07 PM EDT 200 mg Given 06/23/2025 9:22 PM EDT 200 mg Given 06/22/2025 10:21 PM EDT 200 mg cloZAPine (CLOZARIL) tablet 225 mg 225 mg, G-tube, At bedtime, First dose (after last modification) on Sun06/25/25 at 2100, Until Discontinued cloZAPine (CLOZARIL) tablet 25 mg 25 mg, Oral, Daily, First dose on Sun04/16/25 at 1330, Until Discontinued Given 04/16/2025 2:09 PM EDT 25 mg cloZAPine (CLOZARIL) tablet 25 mg 25 mg, G-tube, Daily, First dose (after last modification) on Sun04/17/25 at 1200, Until Discontinued Given 04/19/2025 1:27 PM EDT 25 mg cloZAPine (CLOZARIL) tablet 25 mg 25 mg, Oral, Daily, First dose (after last modification) on Sun04/23/25 at 0900, Until Discontinued Given 05/01/2025 9:05 AM EDT 25 mg Given 04/30/2025 8:00 AM EDT 25 mg Given 04/29/2025 8:00 AM EDT 25 mg cloZAPine (CLOZARIL) tablet 25 mg 25 mg, G-tube, At bedtime, First dose (after last modification) on Sun04/29/25 at 2100, Until Discontinued Given 05/03/2025 8:28 PM EDT 25 mg Given 05/02/2025 9:33 PM EDT 25 mg Given 05/02/2025 2:00 AM EDT 25 mg cloZAPine (CLOZARIL) tablet 25 mg 25 mg, G-tube, Daily, First dose (after last modification) on 05/02/25 at 0900, Until Discontinued Given 06/25/2025 9:41 AM EDT 25 mg Given 06/24/2025 9:18 AM EDT 25 mg Given 06/23/2025 8:25 AM EDT 25 mg cloZAPine (CLOZARIL) tablet 75 mg 75 mg, G-tube, At bedtime, First dose (after last modification) on Sun05/04/25 at 2100, Until Discontinued Given 05/04/2025 10:33 PM EDT 75 mg dexAMETHasone (DECADRON) injection 6 mg 6 mg, Intravenous, Once, On Sun05/27/25 at 2330, For 1 dose Given 2025 10:57 PM EDT 6 mg dexAMETHasone (DECADRON) injection 6 mg 6 mg, Intravenous, Every 24 hours scheduled, First dose on Kristy 05/28/25 at 1100, For 9 days Given 05/29/2025 9:52 AM EDT 6 mg Given 05/28/2025 12:43 PM EDT 6 mg dexAMETHasone (DECADRON) tablet 6 mg 6 mg, Oral, Daily, First dose on Sun05/30/25 at 0900, For 8 doses Given 05/30/2025 10:26 AM EDT 6 mg dextrose (TRUEPLUS) 40% oral gel 15 g 15 g, Oral, Every 15 min PRN, Starting on Sun05/27/25 at 1209, Until Kristy 06/25/25 at 2133, low blood sugar, Use if patient does NOT have an altered level of consciousness, is tolerating PO, and blood glucose is 70 mg/dL or less. Repeat until blood glucose is above 70 mg/dL, up to two times. If blood glucose remains 70 mg/dL or less, proceed to IV dextrose. May substitute 4 oz of fruit juice/non-diet soda based on patient's preference. dextrose 50% (D50W) injection 12.5 g 25 mL (12.5 g), Intravenous, As needed, Starting on Sun05/27/25 at 1209, Until Kristy 06/25/25 at 2133, Use if patient is NPO, has IV access, does NOT have an altered level of consciousness, and blood glucose is 70 mg/dL or less. Admin every 15 min PRN. Repeat until blood glucose is above 70 mg/dL. dextrose 50% (D50W) injection 25 g 50 mL (25 g), Intravenous, As needed, Starting on Sun05/27/25 at 1209, Until Sun06/25/25 at 2133, Use if patient is NPO, has IV access, WITH an altered level of consciousness, and blood glucose is 70 mg/dL or less. Admin every 15 min PRN. Repeat until blood glucose is above 70 mg/dL. diclofenac sodium (VOLTAREN) 1 % gel 2 g 2 g, Topical, 4 times daily PRN, Starting on Sun06/05/25 at 2020, Until Sun06/25/25 at 2133, mild (1-3) pain Given 06/23/2025 9:34 PM EDT 2 g Given 06/22/2025 9:58 PM EDT 2 g Given 06/20/2025 6:31 PM EDT 2 g divalproex (DEPAKOTE SPRINKLE) capsule 125 mg 125 mg, Oral, Every 12 hours scheduled, First dose on Sun05/19/25 at 0930, Until Discontinued Given 05/20/2025 9:39 AM EDT 125 mg Given 05/19/2025 9:32 AM EDT 125 mg divalproex (DEPAKOTE SPRINKLE) capsule 250 mg 250 mg, Oral, Every 12 hours scheduled, First dose (after last modification) on Sun05/20/25 at 2100, Until Discontinued Given 05/21/2025 9:25 AM EDT 250 mg Given 05/20/2025 9:00 PM EDT 250 mg divalproex (DEPAKOTE SPRINKLE) capsule 250 mg 250 mg, Oral, 3 times daily, First dose (after last modification) on Sun05/21/25 at 1600, Until Discontinued Given 2025 9:43 AM EDT 250 mg Given 05/26/2025 9:42 PM EDT 250 mg Given 05/26/2025 4:42 PM EDT 250 mg divalproex (DEPAKOTE SPRINKLE) capsule 250 mg 250 mg, Oral, Every morning, First dose (after last modification) on Sun05/28/25 at 0900, Until Discontinued Given 06/01/2025 9:14 AM EDT 250 mg Given 05/31/2025 10:48 AM EDT 250 mg Given 05/30/2025 10:26 AM EDT 250 mg divalproex (DEPAKOTE SPRINKLE) capsule 500 mg 500 mg, Oral, Every evening, First dose on Sun05/27/25 at 2100, Until Discontinued Given 06/01/2025 8:26 PM EDT 500 m g Given 05/31/2025 8:50 PM EDT 500 mg Given 05/30/2025 12:01 AM EDT 500 mg enoxaparin (LOVENOX) injection 40 mg 40 mg, Subcutaneous, Every 24 hours scheduled, First dose on Sun04/16/25 at 2100, Until Discontinued Given 04/19/2025 11:31 PM EDT 40 mg Given 04/16/2025 9:13 PM EDT 40 mg enoxaparin (LOVENOX) injection 40 mg 40 mg, Subcutaneous, Every 24 hours scheduled, First dose (after last modification) on Sun04/20/25 at 2200, Until Discontinued Given 06/24/2025 9:06 PM EDT 40 mg Given 06/23/2025 9:34 PM EDT 40 mg Given 06/22/2025 10:22 PM EDT 40 mg famotidine (PEPCID) tablet 20 mg 20 mg, G-tube, 2 times daily, First dose on Sun04/16/25 at 2100, Until Discontinued Given 04/20/2025 8:57 AM EDT 20 m g Given 04/19/2025 11:20 PM EDT 20 mg Given 04/18/2025 9:06 AM EDT 20 mg famotidine (PEPCID) tablet 20 mg 20 mg, G-tube, 2 times daily, First dose (after last modification) on Sun04/20/25 at 2200, Until Discontinued Given 06/25/2025 9:41 AM EDT 20 mg Given 06/24/2025 9:08 PM EDT 20 mg Given 06/24/2025 9:18 AM EDT 20 mg gabapentin (NEURONTIN) capsule 100 mg 100 mg, G-tube, 2 times daily, First dose on Sun04/16/25 at 1500, Until Discontinued Given 05/19/2025 8:58 AM EDT 100 mg Given 05/18/2025 2:27 PM EDT 100 mg Given 05/18/2025 8:52 AM EDT 100 mg gabapentin (NEURONTIN) capsule 100 mg 100 mg, G-tube, Every morning, First dose (after last modification) on Sun05/20/25 at 0900, Until Discontinued Given 06/25/2025 9:40 AM EDT 100 mg Given 06/24/2025 9:18 AM EDT 100 mg Given 06/23/2025 8:25 AM EDT 100 mg gabapentin (NEURONTIN) capsule 300 mg 300 mg, G-tube, At bedtime, First dose on Sun04/16/25 at 2100, Until Discontinued Given 06/17/2025 9:20 PM EDT 300 mg Given 06/16/2025 9:09 PM EDT 300 mg Given 06/15/2025 9:26 PM EDT 300 mg gabapentin (NEURONTIN) capsule 300 mg 300 mg, G-tube, At bedtime, First dose (after last modification) on Sun06/18/25 at 2200, Until Discontinued Given 06/24/2025 9:13 PM EDT 300 mg Given 06/23/2025 9:22 PM EDT 300 mg Given 06/22/2025 10:28 PM EDT 300 mg glucagon injection 1 mg 1 mg, Intramuscular, As needed, Starting on Sun05/27/25 at 1209, Until Sun06/25/25 at 2133, Use if patient is NPO, does NOT have IV access, and blood glucose is 70 mg/dL or less. Admin every 15 min PRN. Repeat until blood glucose is above 70 mg/dL, up to two times. Caution: glucagon can cause nausea and vomiting. Roll patient on their side when administering to prevent aspiration. guaiFENesin (ROBITUSSIN) 100 mg/5 mL syrup 200 mg 200 mg, G-tube, Every 4 hours PRN, Starting on Sun04/26/25 at 0832, Until Sun05/27/25 at 1007, cough Given 05/26/2025 10:11 PM EDT 200 mg Given 05/26/2025 4:42 PM EDT 200 mg Given 05/25/2025 11:50 PM EDT 200 mg guaiFENesin (ROBITUSSIN) 100 mg/5 mL syrup 200 mg 200 mg, Oral, Every 4 hours PRN, Starting on 05/30/25 at 0857, Until Kristy 06/25/25 at 2133, cough Given 06/23/2025 4:07 AM EDT 200 mg Given 06/09/2025 2:02 AM EDT 200 mg Given 06/08/2025 7:07 PM EDT 200 mg guaiFENesin ER (MUCINEX) 12 hr tablet 600 mg 600 mg, Oral, 2 times daily, First dose on Sun05/27/25 at 1100, Until Discontinued Given 05/29/2025 9:53 AM EDT 600 m g Given 05/28/2025 8:32 AM EDT 600 mg Given 2025 12:59 PM EDT 600 mg haloperidoL (HALDOL) tablet 1 mg 1 mg, G-tube, 2 times daily, First dose on Sun05/20/25 at 1330, Until Discontinued Given 06/01/2025 9:14 AM EDT 1 mg Given 05/31/2025 8:49 PM EDT 1 mg Given 05/31/2025 10:48 AM EDT 1 mg haloperidoL (HALDOL) tablet 1 mg 1 mg, G-tube, Once, 1 dose, On Sun05/26/25 at 2330 Given 05/26/2025 11:04 PM EDT 1 mg haloperidoL (HALDOL) tablet 1 mg 1 mg, G-tube, Daily, First dose (after last modification) on Sun06/02/25 at 0900, Until Discontinued Given 06/04/2025 9:21 AM EDT 1 mg Given 06/03/2025 9:42 AM EDT 1 mg Given 06/02/2025 9:21 AM EDT 1 mg haloperidoL (HALDOL) tablet 1 mg 1 mg, G-tube, Daily, First dose (after last modification) on Sun06/05/25 at 0900, Until Discontinued Given 06/25/2025 9:40 AM EDT 1 mg Given 06/24/2025 9:18 AM EDT 1 mg Given 06/23/2025 8:25 AM EDT 1 mg haloperidoL (HALDOL) tablet 2 mg 2 mg, G-tube, At bedtime, First dose on 06/01/25 at 2100, Until Discontinued Given 06/03/2025 8:37 PM EDT 2 mg Given 06/02/2025 8:35 PM EDT 2 mg Given 06/01/2025 8:27 PM EDT 2 mg haloperidoL (HALDOL) tablet 2 mg 2 mg, G-tube, Once as needed, 1 dose, Starting on Sun06/03/25 at 0312, Until Sun06/03/25 at 0409, agitation, pre IV Given 06/03/2025 4:09 AM EDT 2 mg haloperidoL (HALDOL) tablet 2 mg 2 mg, Oral, 2 times daily PRN, Starting on Sun06/03/25 at 1715, Until Kristy 06/25/25 at 2133, agitation, For mild/moderate agitation. Given 06/14/2025 4:54 PM EDT 2 mg Given 06/09/2025 5:14 AM EDT 2 mg Given 06/07/2025 3:18 AM EDT 2 mg haloperidoL (HALDOL) tablet 2 mg 2 mg, Oral, Once, 1 dose, On 06/06/25 at 1130 Given 06/06/2025 11:22 AM EDT 2 mg haloperidoL (HALDOL) tablet 3 mg 3 mg, G-tube, At bedtime, First dose (after last modification) on Kristy 06/04/25 at 2100, Until Discontinued Given 06/24/2025 9:07 PM EDT 3 mg Given 06/23/2025 9:21 PM EDT 3 mg Given 06/22/2025 10:22 PM EDT 3 mg haloperidol lactate (HALDOL) injection 2 mg 2 mg, Intramuscular, Once as needed, 1 dose, Starting on Kristy 05/21/25 at 2158, Until 05/23/25 at 0537, agitation Given 05/23/2025 5:37 AM EDT 2 mg Right Deltoid haloperidol lactate (HALDOL) injection 2 mg 2 mg, Intramuscular, Once, 1 dose, On Sun05/24/25 at 1300 Given 05/24/2025 12:37 PM EDT 2 mg Left Anterior Thigh haloperidol lactate (HALDOL) injection 2 mg 2 mg, Intramuscular, Once, 1 dose, On Sun05/24/25 at 1700 Given 05/24/2025 4:37 PM EDT 2 mg Right Anterior Thigh hydrOXYzine HCL (ATARAX) tablet 10 mg 10 mg, Oral, Once, 1 dose, On Sun06/11/25 at 1930 Given 06/11/2025 6:47 PM EDT 10 mg insulin regular (HumuLIN R, NovoLIN R) 100 unit/mL injection 0-12 Units 0-12 Units, Subcutaneous, Every 6 hours scheduled, First dose on Sun05/27/25 at 1300, Until Discontinued Given 06/04/2025 5:20 AM EDT 2 Units Given 06/03/2025 12:04 PM EDT 2 Units Given 06/03/2025 5:50 AM EDT 2 Units iohexoL (OMNIPAQUE) 240 mg iodine/mL solution 20 mL 20 mL, Intravenous, Once in imaging, Starting on Sun05/12/25 at 1740, For 1 dose, Hydrate well prior to and following administration. iohexoL (OMNIPAQUE) 350 mg iodine/mL injection 100 mL 100 mL, Intravenous, Once in imaging, Starting on Sun05/27/25 at 2107, For 1 dose, Hydrate well prior to and following administration. Given 2025 9:07 PM EDT 100 mL iohexoL (OMNIPAQUE) 350 mg iodine/mL injection 70 mL 70 mL, Intravenous, Once in imaging, Starting on Sun04/15/25 at 1842, For 1 dose, Hydrate well prior to and following administration. Given 04/15/2025 6:42 PM EDT 70 mL ipratropium-albuteroL (DUONEB) 0.5-2.5 mg/3 mL nebulizer solution 3 mL 3 mL, Nebulization, Once, 1 dose, On Sun05/25/25 at 1500 Given 05/25/2025 2:38 PM EDT 3 mL ipratropium-albuteroL (DUONEB) 0.5-2.5 mg/3 mL nebulizer solution 3 mL 3 mL, Nebulization, Every 6 hours scheduled, First dose on Sun05/27/25 at 1300, Until Discontinued Given 05/28/2025 6:07 AM EDT 3 mL Given 05/28/2025 12:13 AM EDT 3 mL Given 2025 5:54 PM EDT 3 mL ipratropium-albuteroL (DUONEB) 0.5-2.5 mg/3 mL nebulizer solution 3 mL 3 mL, Nebulization, Every 4 hours, First dose (after last modification) on Kristy 05/28/25 at 1000, Until Discontinued Given 06/02/2025 9:24 AM EDT 3 mL Given 06/01/2025 7:08 PM EDT 3 mL Given 05/30/2025 10:27 AM EDT 3 mL ipratropium-albuteroL (DUONEB) 0.5-2.5 mg/3 mL nebulizer solution 3 mL 3 mL, Nebulization, Every 4 hours PRN, Starting on Sun06/02/25 at 1000, Until Sun06/25/25 at 2133, wheezing, shortness of breath ketoconazole (NIZORAL) 2 % cream Topical, 2 times daily, First dose (after last modification) on Sun06/06/25 at 0530, Apply to R leg rash Given 06/25/2025 9:41 AM EDT Given 06/24/2025 9:06 PM EDT Given 06/24/2025 9:18 AM EDT lactated ringers (LR) BOLUS 500 mL 500 mL, Intravenous, Once, On Sun05/27/25 at 2200, For 1 dose, Routine, Administer over 2 Hours New Bag 2025 10:57 PM EDT 500 mL 250 mL/hr lactulose (ENULOSE) 10 gram/15 mL solution 10 g 10 g, Oral, Once, 1 dose, On Sun05/02/25 at 1100 Given 05/02/2025 1:29 PM EDT 10 g lactulose (ENULOSE) 10 gram/15 mL solution 20 g 20 g, Oral, 2 times daily, First dose (after last reorder) on Sun05/02/25 at 2100, Until Discontinued Given 05/19/2025 8:57 AM EDT 20 g Given 05/18/2025 10:32 PM EDT 20 g Given 05/18/2025 2:26 PM EDT 20 g lactulose (ENULOSE) 10 gram/15 mL solution 20 g 20 g, Oral, 3 times daily, First dose (after last modification) on Sun05/19/25 at 1600, Until Discontinued Given 05/22/2025 9:32 AM EDT 20 g Given 05/21/2025 9:25 AM EDT 20 g Given 05/20/2025 4:53 PM EDT 20 g lactulose (ENULOSE) 10 gram/15 mL solution 20 g 20 g, G-tube, 3 times daily, First dose (after last modification) on Sun05/22/25 at 1600, Until Discontinued Given 05/29/2025 9:53 AM EDT 20 g Given 05/28/2025 8:42 PM EDT 20 g Given 05/28/2025 4:38 PM EDT 20 g lactulose (ENULOSE) 10 gram/15 mL solution 20 g 20 g, G-tube, Daily, First dose (after last modification) on Sun05/30/25 at 0900, Until Discontinued Given 06/16/2025 8:38 AM EDT 20 g Given 06/14/2025 10:18 AM EDT 20 g Given 06/13/2025 10:10 AM EDT 20 g lactulose (ENULOSE) 10 gram/15 mL solution 20 g 20 g, G-tube, 2 times daily, First dose (after last modification) on Sun06/16/25 at 2100, Until Discontinued Given 06/25/2025 9:40 AM EDT 20 g Given 06/24/2025 9:18 AM EDT 20 g Given 06/23/2025 9:20 PM EDT 20 g levoFLOXacin (LEVAQUIN) tablet 750 mg 750 mg Every 24 hours, Oral, First dose on Sun06/03/25 at 1100, For 1 dose Given 06/03/2025 12:05 PM EDT 750 mg lidocaine 4 % patch 1 patch 1 patch, Topical, Administer over 12 Hours, Every 24 hours, First dose on Sun05/04/25 at 1200, Patch should be applied for 12 hours on and 12 hours off. Location(s) to be applied to: back Patch Applied 06/25/2025 11:54 AM EDT 1 patch Hanna k Patch Applied 06/24/2025 1:12 PM EDT 1 patch Back Patch Applied 06/23/2025 1:03 PM EDT 1 patch Back lidocaine 4 % patch 1 patch 1 patch, Topical, Administer over 12 Hours, Every 24 hours, First dose on Sun05/24/25 at 1400, Patch should be applied for 12 hours on and 12 hours off. Location(s) to be applied to: neck. Patch Applied 06/16/2025 12:14 PM EDT 1 patch Hanna k Patch Applied 06/15/2025 1:40 PM EDT 1 patch Other Patch Applied 06/14/2025 1:14 PM EDT 1 patch Back lidocaine 4 % patch 1 patch 1 patch, Topical, Administer over 12 Hours, Every 24 hours, First dose (after last modification) on Sun06/17/25 at 1200, Patch should be applied for 12 hours on and 12 hours off. Location(s) to be applied to: neck. Patch Applied 06/25/2025 11:54 AM EDT 1 patch Hanna k Patch Applied 06/24/2025 1:13 PM EDT 1 patch Back Patch Applied 06/23/2025 1:03 PM EDT 1 patch Back LORazepam (ATIVAN) 2 mg/mL injection - ADS Override Pull 1 dose, Starting on Sun05/03/25 at 0106, Until Sun05/03/25 at 0110 LORazepam (ATIVAN) injection 0.5 mg 0.5 mg, Intravenous, Once, 1 dose, On Sun05/03/25 at 0200 Given 05/03/2025 1:10 AM EDT 0.5 mg LORazepam (ATIVAN) injection 0.5 mg 0.5 mg, Intramuscular, Once, 1 dose, On Sun05/06/25 at 2230 Given 05/06/2025 10:27 PM EDT 0.5 mg Right Deltoid LORazepam (ATIVAN) injection 0.5 mg 0.5 mg, Intramuscular, Once, 1 dose, On Sun05/07/25 at 1930 Given 05/07/2025 6:35 PM EDT 0.5 mg Left Deltoid LORazepam (ATIVAN) injection 0.5 mg 0.5 mg, Intramuscular, Every 4 hours PRN, Starting on Sun05/11/25 at 2148, Until Sun05/20/25 at 1552, anxiety Given 05/20/2025 12:19 PM EDT 0.5 mg Right Deltoid Given 05/19/2025 2:51 PM EDT 0.5 mg Ri ght Deltoid Given by Other 05/18/2025 7:15 PM EDT 0.5 mg Right Deltoid LORazepam (ATIVAN) injection 1 mg 1 mg, Intravenous, Once, 1 dose, On Kristy /26/25 at 0030 Given 04/16/2025 12:25 AM EDT 1 mg LORazepam (ATIVAN) injection 1 mg 1 mg, Intravenous, Once, 1 dose, On Sun04/22/25 at 1230 Given 04/22/2025 11:37 AM EDT 1 mg LORazepam (ATIVAN) injection 1 mg 1 mg, Intravenous, Once, 1 dose, On Sun04/30/25 at 1030 Given 04/30/2025 10:00 AM EDT 1 mg LORazepam (ATIVAN) injection 1 mg 1 mg, Intramuscular, Once, 1 dose, On Sun05/11/25 at 2300 Given 05/11/2025 10:05 PM EDT 1 mg Right Anterior Thigh LORazepam (ATIVAN) injection 1 mg 1 mg, Intramuscular, Once, 1 dose, On Sun05/12/25 at 2000 Given 05/12/2025 7:13 PM EDT 1 mg Right Deltoid LORazepam (ATIVAN) tablet 1 mg 1 mg, Oral, 3 times daily, First dose on Sun04/16/25 at 0900, Until Discontinued Given 04/16/2025 9:11 AM EDT 1 mg LORazepam (ATIVAN) tablet 1 mg 1 mg, G-tube, Once, 1 dose, On Sun04/27/25 at 1400 Given 04/27/2025 2:01 PM EDT 1 mg LORazepam (ATIVAN) tablet 1 mg 1 mg, G-tube, Every 4 hours PRN, Starting on Sun05/18/25 at 0031, Until Sun05/23/25 at 1436, anxiety, alternative to injection Given 05/20/2025 5:33 PM EDT 1 mg Given 05/19/2025 9:53 PM EDT 1 mg Given 05/18/2025 12:48 AM EDT 1 mg LORazepam (ATIVAN) tablet 1 mg 1 mg, G-tube, Once as needed, 1 dose, Starting on Sun05/18/25 at 0215, Until Sun05/20/25 at 2237, anxiety Given 05/20/2025 10:37 PM EDT 1 mg magnesium citrate solution 148 mL 148 mL, Oral, Once, 1 dose, On Sun06/05/25 at 0900 Given 06/05/2025 8:46 AM EDT 148 mL magnesium citrate solution 296 mL 296 mL, G-tube, Once, 1 dose, On Sun04/30/25 at 1600 Given 04/30/2025 4:16 PM EDT 296 mL magnesium citrate solution 296 mL 296 mL, G-tube, Once, 1 dose, On Sun05/01/25 at 1100 Given 05/02/2025 2:02 AM EDT 296 mL magnesium citrate solution 296 mL 296 mL, Oral, Once, 1 dose, On Sun05/05/25 at 1130 Given 05/05/2025 1:57 PM EDT 296 mL magnesium citrate solution 296 mL 296 mL, Oral, Once, 1 dose, On Sun05/13/25 at 1800 Given 05/13/2025 9:05 PM EDT 296 mL magnesium citrate solution 296 mL 296 mL, Oral, Once, 1 dose, On Sun05/14/25 at 1430 Given 05/14/2025 3:55 PM EDT 296 mL magnesium citrate solution 296 mL 296 mL, Oral, Once, 1 dose, On Sun05/20/25 at 1330 Given 05/20/2025 1:42 PM EDT 296 mL magnesium citrate solution 74 mL 74 mL, G-tube, Daily, First dose (after last modification) on Sun05/22/25 at 1500, Until Discontinued Given 05/28/2025 12:44 PM EDT 74 mL Given 2025 9:43 AM EDT 74 mL Given 05/24/2025 8:59 AM EDT 74 mL multivitamin with minerals oral liquid 15 mL 15 mL, Oral, Daily, First dose on Sun04/24/25 at 1130, Until Discontinued Given 05/22/2025 9:32 AM EDT 15 mL Given 05/21/2025 9:25 AM EDT 15 mL Given 05/20/2025 9:38 AM EDT 15 mL multivitamin with minerals oral liquid 15 mL 15 mL, G-tube, Daily, First dose (after last modification) on Sun05/23/25 at 0900, Until Discontinued Given 06/25/2025 9:40 AM EDT 15 mL Given 06/24/2025 9:16 AM EDT 15 mL Given 06/23/2025 8:25 AM EDT 15 mL Multivitamin with Minerals tablet 1 tablet 1 tablet, Oral, Daily, First dose on Sun04/17/25 at 1400, Until Discontinued Given 04/23/2025 9:40 AM EDT 1 tablet Given 04/22/2025 10:57 AM EDT 1 tablet Given 04/21/2025 10:01 AM EDT 1 tablet peripheral line: sodium chloride (NS) 0.9% flush 3 mL, Intravenous, Every 12 hours scheduled, First dose on Sun04/16/25 at 2100, Until Discontinued Given 06/02/2025 8:36 PM EDT 3 mL Given 06/02/2025 9:22 AM EDT 3 mL Given 06/01/2025 8:28 PM EDT 3 mL peripheral line: sodium chloride 0.9 % (NS) flush 3 mL, Intravenous, Every 1 min PRN, Starting on Sun04/16/25 at 1450, Until Sun06/25/25 at 2133, line care polyethylene glycol (MIRALAX) packet 17 g 17 g, Oral, 2 times daily, First dose on Sun04/28/25 at 1200, Until Discontinued Given 05/22/2025 9:32 AM EDT 17 g Given 05/21/2025 9:25 AM EDT 17 g Given 05/20/2025 9:39 AM EDT 17 g polyethylene glycol (MIRALAX) packet 17 g 17 g, G-tube, 2 times daily, First dose (after last modification) on Sun05/22/25 at 2100, Until Discontinued Given 05/29/2025 9:27 PM EDT 17 g Given 05/29/2025 9:53 AM EDT 17 g Given 05/28/2025 8:38 PM EDT 17 g polyethylene glycol (MIRALAX) packet 17 g 17 g, G-tube, Once, 1 dose, On 05/30/25 at 1730 Given 05/30/2025 11:50 PM EDT 17 g polyethylene glycol (MIRALAX) packet 17 g 17 g, G-tube, 2 times daily, First dose on Sun06/01/25 at 1300, Until Discontinued, On hold since Sun06/16/2025 at 1157 until manually unheld Given 06/16/2025 8:39 AM EDT 17 g Given 06/14/2025 9:05 PM EDT 17 g Given 06/14/2025 10:18 AM EDT 17 g polyethylene glycol (MIRALAX) packet 17 g 17 g, G-tube, 2 times daily, First dose (after last modification) on Sun06/16/25 at 2100, Until Discontinued Given 06/25/2025 9:41 AM EDT 17 g Given 06/24/2025 9:06 PM EDT 17 g Given 06/24/2025 9:18 AM EDT 17 g QUEtiapine (SEROquel) tablet 50 mg 50 mg, Oral, 3 times daily PRN, Starting on Sun04/19/25 at 1514, Until Sun05/19/25 at 1712, anxiety, irritability, paranoia, agitation Given 05/18/2025 5:37 PM EDT 50 mg Given 05/17/2025 8:04 PM EDT 50 mg Given 05/17/2025 2:32 PM EDT 50 mg ramelteon (ROZEREM) tablet 8 mg 8 mg, Oral, At bedtime, First dose on Sun04/19/25 at 2100, Until Discontinued Given 04/19/2025 11:18 PM EDT 8 mg ramelteon (ROZEREM) tablet 8 mg 8 mg, Oral, At bedtime, First dose (after last modification) on Sun04/20/25 at 2200, Until Discontinued Given 05/22/2025 12:04 AM EDT 8 mg Given 05/20/2025 9:00 PM EDT 8 mg Given 05/18/2025 10:31 PM EDT 8 mg ramelteon (ROZEREM) tablet 8 mg 8 mg, G-tube, At bedtime, First dose (after last modification) on Sun05/22/25 at 2100, Until Discontinued Given 06/24/2025 9:06 PM EDT 8 mg Given 06/23/2025 9:20 PM EDT 8 mg Given 06/22/2025 10:23 PM EDT 8 mg remdesivir (VEKLURY) 100 mg in sodium chloride 0.9% (NS) 100 mL Mini-Bag Plus (disp comp) 100 mg, Intravenous, Administer over 60 Minutes, Every 24 hours, First dose on Sun05/25/25 at 1600, For 4 doses, 1. Infuse initial dose over 60 minutes. Monitor BP for infusion-related hypotension, may infuse subsequent doses over 30 minutes. 2. Flush IV line with a minimum of 30 mL Normal Saline after administration, Has this order been approved by ID/AST? Discussed with and approved by Antimicrobial Stewardship provider (pager [phone])., Select the name of the APPROVING AST PROVIDER: Francisco Vasquez Given 05/28/2025 5:52 PM EDT 1 00 mg Given 2025 3:34 PM EDT 100 mg Given 05/26/2025 4:38 PM EDT 100 mg remdesivir (VEKLURY) 200 mg in sodium chloride 0.9% (NS) 250 mL infusion 200 mg, Intravenous, Administer over 60 Minutes, Once, On Sun05/24/25 at 1600, For 1 dose, 1. Infuse initial dose over 60 minutes. Monitor BP for infusion-related hypotension, may infuse subsequent doses over 30 minutes. 2. Flush IV line with a minimum of 30 mL Normal Saline after administration, Has this order been approved by ID/AST? Discussed with and approved by Antimicrobial Stewardship provider (pager [phone])., Select the name of the APPROVING AST PROVIDER: Francisco Vasquez New Bag 05/24/2025 7:00 PM EDT 200 mg sennosides oral syrup 17.6 mg 17.6 mg, G-tube, 2 times daily, First dose on Kristy 04/16/25 at 2100, Until Discontinued Given 04/20/2025 8:57 AM ED T 17.6 mg Given 04/19/2025 11:18 PM EDT 17.6 mg Given 04/18/2025 9:06 AM EDT 17.6 mg sennosides oral syrup 17.6 mg 17.6 mg, G-tube, 2 times daily, First dose (after last modification) on Sun04/20/25 at 2200, Until Discontinued Given 05/29/2025 9:27 PM EDT 17.6 mg Given 05/29/2025 9:53 AM EDT 17.6 mg Given 05/28/2025 8:40 PM EDT 17.6 mg sennosides oral syrup 17.6 mg 17.6 mg, G-tube, Daily, First dose (after last modification) on Sun05/31/25 at 0900, Until Discontinued Given 06/25/2025 9:40 AM EDT 17.6 mg Given 06/24/2025 9:17 AM EDT 17.6 mg Given 06/22/2025 9:43 AM EDT 17.6 mg simethicone (MYLICON) chewable tablet 80 mg 80 mg, G-tube, Every 6 hours PRN, Starting on Sun06/16/25 at 1158, Until Sun06/25/25 at 2133, flatulence Given 06/20/2025 10:11 AM EDT 80 mg Given 06/18/2025 3:57 PM EDT 80 mg Given 06/17/2025 4:54 AM EDT 80 mg sodium bicarbonate tablet 650 mg 650 mg, Oral, Once, 1 dose, On Sun05/27/25 at 1200 Given 2025 11:34 AM EDT 650 mg sodium chloride (OCEAN) 0.65 % nasal spray 2 spray 2 spray, Each Nare, Every 2 hour PRN, Starting on Sun06/14/25 at 1613, Until Sun06/25/25 at 2133, irritation sodium chloride 3 % nebulizer solution 4 mL 4 mL, Nebulization, Every 4 hours PRN, Starting on Sun05/28/25 at 1435, Until Sun06/25/25 at 2133, other Given 05/28/2025 5:22 PM EDT 4 mL tamsulosin (FLOMAX) 24 hr capsule 0.4 mg 0.4 mg, G-tube, At bedtime, First dose on Sun04/16/25 at 2100, Until Discontinued Given 04/19/2025 11:19 PM EDT 0.4 mg Given 04/16/2025 9:12 PM EDT 0.4 mg tamsulosin (FLOMAX) 24 hr capsule 0.4 mg 0.4 mg, G-tube, At bedtime, First dose (after last modification) on Sun04/20/25 at 2200, Until Discontinued Given 06/24/2025 9:07 PM EDT 0.4 mg Given 06/23/2025 9:22 PM EDT 0.4 mg Given 06/22/2025 10:23 PM EDT 0.4 mg traZODone (DESYREL) tablet 150 mg 150 mg, G-tube, At bedtime, First dose on Sun04/16/25 at 2100, Until Discontinued Given 04/19/2025 11:19 PM EDT 150 mg Given 04/16/2025 9:13 PM EDT 150 mg traZODone (DESYREL) tablet 150 mg 150 mg, G-tube, Nightly, First dose (after last modification) on Sun04/20/25 at 2200, Until Discontinued, HOLD IF ALTERED/if patient unarousable Given 06/24/2025 9:06 PM EDT 150 mg Given 06/23/2025 9:21 PM EDT 150 mg Given 06/22/2025 10:23 PM EDT 150 mg valproate (DEPAKENE) 250 mg/5 mL solution 250 mg 250 mg, Oral, 3 times daily, First dose on Sun06/02/25 at 1130, Until Discontinued Given 06/09/2025 2:02 AM EDT 250 mg Given 06/08/2025 5:52 PM EDT 250 mg Given 06/08/2025 11:41 AM EDT 250 mg valproate (DEPAKENE) 250 mg/5 mL solution 250 mg 250 mg, G-tube, 3 times daily, First dose (after last modification) on Sun06/09/25 at 1000, Until Discontinued Given 06/11/2025 2:04 PM EDT 250 mg Given 06/11/2025 8:45 AM EDT 250 mg Given 06/10/2025 8:18 PM EDT 250 mg valproate (DEPAKENE) 250 mg/5 mL solution 500 mg 500 mg, G-tube, 2 times daily, First dose (after last modification) on Sun06/11/25 at 2100, Until Discontinued Given 06/25/2025 9:40 AM EDT 500 mg Given 06/24/2025 9:06 PM EDT 500 mg Given 06/24/2025 9:16 AM EDT 500 mg vancomycin (VANCOCIN) 1 gram/200 mL in dextrose 5% (D5W) IVPB premix 1,000 mg 200 mL 1,000 mg, Intravenous, Administer over 60 Minutes, Every 12 hours, First dose on Sun05/27/25 at 2000, For 7 days, Indication: Community Acquired/Healthcare Associated Pneumonia New Bag 05/28/2025 8:35 AM EDT 1,000 mg 200 mL/hr New Bag 2025 9:48 PM EDT 1,000 mg 200 mL/hr documented in this encounter Active and Recently Administered Medications Times are shown in EDT. Scheduled Medication Order 06/23/2025 06/24/2025 06/25/2025 acetaminophen (TYLENOL) tablet 1,000 mg 1,000 mg, G-tube, 3 times daily, First dose (after last modification) on Sun06/08/25 at 2200, Until Discontinued 08 (Given - Provider: Rosalinda Montano RN)1640 (Given - Provider: Rosalinda Montano RN)212 (Given - Provider: Madelyn Bailey, VITALIY) 0917 (Given - Provider: Yu Gunderson, RN)163 (Given - Provider: Yu Gunderson, RN)211 (Given - Provider: Tiffanie Rush, VITALIY) 0941 (Given - Provider: Yu Gunderson, RN)153 (Given - Provider: Yu Gunderson, RN) atorvaSTATin (LIPITOR) tablet 20 mg 20 mg, G-tube, At bedtime, First dose (after last modification) on Sun04/20/25 at 2200, Until Discontinued 2119 (Given - Provider: Madelyn Bailey RN) 2107 (Given - Provider: Tiffanie Rush, VITALIY) 2100 (Canceled Entry - Provider: Automatic Discharge Provider - Comment: Automatically canceled at discontinue of medication order) buPROPion (WELLBUTRIN) tablet 100 mg 100 mg, G-tube, 3 times daily, First dose (after last modification) on Kristy 04/16/25 at 2200, Until Discontinued, On hold since Sun05/11/2025 at 1555 until manually unheld 0900 (Dose Auto Held)1600 (Dose Auto Held)2200 (Dose Auto Held) 0900 (Dose Auto Held)1600 (Dose Auto Held)2200 (Dose Auto Held) 0900 (Dose Auto Held)1600 (Dose Auto Held)2132 (Unheld by provider - Provider: Automatic Discharge Provider) cloZAPine (CLOZARIL) tablet 200 mg (CANCELED) 200 mg, G-tube, At bedtime, First dose (after last modification) on Sun06/12/25 at 2100, Until Discontinued 2121 (Given - Provider: Madelyn Bailey RN) 2107 (Given - Provider: Tiffanie Rush RN) cloZAPine (CLOZARIL) tablet 225 mg 225 mg, G-tube, At bedtime, First dose (after last modification) on Sun06/25/25 at 2100, Until Discontinued 2099 (Canceled Entry - Provider: Automatic Discharge Provider - Comment: Automatically canceled at discontinue of medication order) cloZAPine (CLOZARIL) tablet 25 mg 25 mg, G-tube, Daily, First dose (after last modification) on Sun05/02/25 at 0900, Until Discontinued 824 (Given - Provider: Rosalinda Montano RN) 917 (Given - Provider: Yu Gunderson RN) 0941 (Given - Provider: Yu Gunderson, RN) enoxaparin (LOVENOX) injection 40 mg 40 mg, Subcutaneous, Every 24 hours scheduled, First dose (after last modification) on Sun04/20/25 at 2200, Until Discontinued 2133 (Given - Provider: Madelyn Bailey RN) 2105 (Given - Provider: Tiffanie Rush RN) 2099 (Canceled Entry - Provider: Automatic Discharge Provider - Comment: Automatically canceled at discontinue of medication order) famotidine (PEPCID) tablet 20 mg 20 mg, G-tube, 2 times daily, First dose (after last modification) on Sun04/20/25 at 2200, Until Discontinued 824 (Given - Provider: Rosalinda Montano RN)2121 (Given - Provider: Madelyn Bailey RN) 917 (Given - Provider: Yu Gunderson RN)2107 (Given - Provider: Tiffanie Rush, VITALIY) 09 (Given - Provider: Yu Gunderson, VITALIY)2100 (Canceled Entry - Provider: Automatic Discharge Provider - Comment: Automatically canceled at discontinue of medication order) gabapentin (NEURONTIN) capsule 100 mg 100 mg, G-tube, Every morning, First dose (after last modification) on Sun05/20/25 at 0900, Until Discontinued 824 (Given - Provider: Rosalinda Montano RN) 09 (Given - Provider: Yu Gunderson RN) 0940 (Given - Provider: Yu Gunderson RN) gabapentin (NEURONTIN) capsule 300 mg 300 mg, G-tube, At bedtime, First dose (after last modification) on Sun06/18/25 at 2200, Until Discontinued 2121 (Given - Provider: Madelyn Bailey RN) 2112 (Given - Provider: Tiffanie Rush, VITALIY) haloperidoL (HALDOL) tablet 1 mg(Linked Group 1) 1 mg, G-tube, Daily, First dose (after last modification) on Sun06/05/25 at 0900, Until Discontinued 824 (Given - Provider: Rosalinda Montano RN) 917 (Given - Provider: Yu Gunderson RN) 939 (Given - Provider: Yu Gunderson RN) haloperidoL (HALDOL) tablet 3 mg(Linked Group 1) 3 mg, G-tube, At bedtime, First dose (after last modification) on Sun06/04/25 at 2100, Until Discontinued 2120 (Given - Provider: Madelyn Bailey RN) 2106 (Given - Provider: Tiffanie Rush RN) 2099 (Canceled Entry - Provider: Automatic Discharge Provider - Comment: Automatically canceled at discontinue of medication order) ketoconazole (NIZORAL) 2 % cream Topical, 2 times daily, First dose (after last modification) on Sun06/06/25 at 0530, Apply to R leg rash 0829 (Given - Provider: Rosalinda Montano RN)2133 (Given - Provider: Madelyn Bailey RN) 917 (Given - Provider: Yu Gunderson RN)2105 (Given - Provider: Tiffanie Rush, VITALIY) 0941 (Given - Provider: Yu Gunderson, VITALIY)2100 (Canceled Entry - Provider: Automatic Discharge Provider - Comment: Automatically canceled at discontinue of medication order) lactulose (ENULOSE) 10 gram/15 mL solution 20 g 20 g, G-tube, 2 times daily, First dose (after last modification) on Sun06/16/25 at 2100, Until Discontinued 822 (Not Given - Provider: Rosalinda Montano RN - Reason: Other - Indicate below - Comment: lg loose Bm prev shift)2119 (Given - Provider: Madelyn Bailey RN) 0918 (Given - Provider: Yu Gunderson RN)2056 (Not Given - Provider: Tiffanie Rush RN - Reason: Other - Indicate below - Comment: large BM prev shift per report) 0940 (Given - Provider: Yu Gunderson RN)2100 (Canceled Entry - Provider: Automatic Discharge Provider - Comment: Automatically canceled at discontinue of medication order) lidocaine 4 % patch 1 patch 1 patch, Topical, Administer over 12 Hours, Every 24 hours, First dose on Sun05/04/25 at 1200, Patch should be applied for 12 hours on and 12 hours off. Location(s) to be applied to: back 0407 (Patch Removed - Provider: Emeli Pham RN)1303 (Patch Applied - Provider: Rosalinda Montano RN) 0051 (Patch Removed - Provider: Madelyn Bailey RN)131 (Patch Applied - Provider: Yu Gunderson RN) 0024 (Patch Removed - Provider: Tiffanie Rush, VITALIY)1154 (Patch Applied - Provider: Yu Gunderson RN)1932 (Due: Patch Removed - Provider: Automatic Discharge Provider - Comment: Time automatically adjusted from order being discontinued) lidocaine 4 % patch 1 patch 1 patch, Topical, Administer over 12 Hours, Every 24 hours, First dose (after last modification) on Sun06/17/25 at 1200, Patch should be applied for 12 hours on and 12 hours off. Location(s) to be applied to: neck. 0407 (Patch Removed - Provider: Emeli Pham RN)1303 (Patch Applied - Provider: Rosalinda Montano RN) 005 (Patch Removed - Provider: Madelyn Bailey, VITALIY)131 (Patch Applied - Provider: Yu Gunderson RN) 0024 (Patch Removed - Provider: Tiffanie Rush, VITALIY)1154 (Patch Applied - Provider: Yu Gunderson RN)193 (Due: Patch Removed - Provider: Automatic Discharge Provider - Comment: Time automatically adjusted from order being discontinued) multivitamin with minerals oral liquid 15 mL 15 mL, G-tube, Daily, First dose (after last modification) on Sun05/23/25 at 0900, Until Discontinued 08 (Given - Provider: Rosalinda Montano RN) 915 (Given - Provider: Yu Gunderson RN) 0940 (Given - Provider: Yu Gunderson RN) peripheral line: sodium chloride (NS) 0.9% flush(Linked Group 2) 3 mL, Intravenous, Every 12 hours scheduled, First dose on Sun04/16/25 at 2100, Until Discontinued 823 (Not Given - Provider: Rosalinda Montano RN - Reason: Order parameters not met)2133 (Not Given - Provider: Madelyn Bailey RN - Reason: Other - Indicate below - Comment: no iv) 917 (Not Given - Provider: Yu Gunderson RN - Reason: Other - Indicate below - Comment: No piv)2107 (Not Given - Provider: Tiffanie Rush RN - Reason: Order parameters not met) 955 (Not Given - Provider: Yu Gunderson RN - Reason: Other - Indicate below - Comment: no PIV)2099 (Canceled Entry - Provider: Automatic Discharge Provider - Comment: Automatically canceled at discontinue of medication order) polyethylene glycol (MIRALAX) packet 17 g 17 g, G-tube, 2 times daily, First dose (after last modification) on Sun06/16/25 at 2100, Until Discontinued 823 (Not Given - Provider: Rosalinda Montano RN - Reason: Other - Indicate below - Comment: lg loose Bm prev shift)2121 (Given - Provider: Madelyn Bailey RN) 917 (Given - Provider: Yu Gunderson RN)2105 (Given - Provider: Tiffanie Rush, VITALIY) 09 (Given - Provider: Yu Gunderson RN)2099 (Canceled Entry - Provider: Automatic Discharge Provider - Comment: Automatically canceled at discontinue of medication order) ramelteon (ROZEREM) tablet 8 mg 8 mg, G-tube, At bedtime, First dose (after last modification) on Sun05/22/25 at 2100, Until Discontinued 2119 (Given - Provider: Madelyn Bailey RN) 2105 (Given - Provider: Tiffanie Rush RN) 2099 (Canceled Entry - Provider: Automatic Discharge Provider - Comment: Automatically canceled at discontinue of medication order) sennosides oral syrup 17.6 mg 17.6 mg, G-tube, Daily, First dose (after last modification) on Sun05/31/25 at 0900, Until Discontinued 823 (Not Given - Provider: Rosalinda Montano RN - Reason: Other - Indicate below - Comment: lg loose Bm prev shift) 916 (Given - Provider: Yu Gunderson, RN) 09 (Given - Provider: Yu Gunderson, RN) tamsulosin (FLOMAX) 24 hr capsule 0.4 mg 0.4 mg, G-tube, At bedtime, First dose (after last modification) on Sun04/20/25 at 2200, Until Discontinued 2121 (Given - Provider: Madelyn Bailey RN) 2106 (Given - Provider: Tiffanie Rush, RN) 2099 (Canceled Entry - Provider: Automatic Discharge Provider - Comment: Automatically canceled at discontinue of medication order) traZODone (DESYREL) tablet 150 mg 150 mg, G-tube, Nightly, First dose (after last modification) on Sun04/20/25 at 2200, Until Discontinued, HOLD IF ALTERED/if patient unarousable 2120 (Given - Provider: Madelyn Bailey RN) 2105 (Given - Provider: Tiffanie Rush, RN) 2099 (Canceled Entry - Provider: Automatic Discharge Provider - Comment: Automatically canceled at discontinue of medication order) valproate (DEPAKENE) 250 mg/5 mL solution 500 mg 500 mg, G-tube, 2 times daily, First dose (after last modification) on Kristy 06/11/25 at 2100, Until Discontinued 824 (Given - Provider: Rosalinda Montano RN)2121 (Given - Provider: Madelyn Bailey RN) 915 (Given - Provider: Yu Gunderson, VITALIY)2105 (Given - Provider: Tiffanie Rush, RN) 939 (Given - Provider: Yu Gunderson, RN)2099 (Canceled Entry - Provider: Automatic Discharge Provider - Comment: Automatically canceled at discontinue of medication order) PRN Medication Order 06/23/2025 06/24/2025 06/25/2025 bisacodyl (DULCOLAX) suppository 10 mg 10 mg, Rectal, Daily PRN, Starting on Sun05/02/25 at 1623, Until Sun06/25/25 at 2133, constipation calcium carbonate (TUMS) chewable tablet 1,000 mg 1,000 mg, G-tube, 3 times daily PRN, Starting on Sun05/22/25 at 1058, Until Sun06/25/25 at 2133, indigestion, heartburn dextrose (TRUEPLUS) 40% oral gel 15 g(Linked Group 3) 15 g, Oral, Every 15 min PRN, Starting on Sun05/27/25 at 1209, Until Sun06/25/25 at 213, low blood sugar, Use if patient does NOT have an altered level of consciousness, is tolerating PO, and blood glucose is 70 mg/dL or less. Repeat until blood glucose is above 70 mg/dL, up to two times. If blood glucose remains 70 mg/dL or less, proceed to IV dextrose. May substitute 4 oz of fruit juice/non-diet soda based on patient's preference. dextrose 50% (D50W) injection 12.5 g(Linked Group 3) 25 mL (12.5 g), Intravenous, As needed, Starting on Sun05/27/25 at 1209, Until Sun06/25/25 at 213, Use if patient is NPO, has IV access, does NOT have an altered level of consciousness, and blood glucose is 70 mg/dL or less. Admin every 15 min PRN. Repeat until blood glucose is above 70 mg/dL. dextrose 50% (D50W) injection 25 g(Linked Group 3) 50 mL (25 g), Intravenous, As needed, Starting on Sun05/27/25 at 1209, Until Sun06/25/25 at 2133, Use if patient is NPO, has IV access, WITH an altered level of consciousness, and blood glucose is 70 mg/dL or less. Admin every 15 min PRN. Repeat until blood glucose is above 70 mg/dL. diclofenac sodium (VOLTAREN) 1 % gel 2 g 2 g, Topical, 4 times daily PRN, Starting on Sun06/05/25 at 2020, Until Sun06/25/25 at 2133, mild (1-3) pain 2133 (Given - Provider: Madelyn Bailey RN) glucagon injection 1 mg(Linked Group 3) 1 mg, Intramuscular, As needed, Starting on Sun05/27/25 at 1209, Until Sun06/25/25 at 2133, Use if patient is NPO, does NOT have IV access, and blood glucose is 70 mg/dL or less. Admin every 15 min PRN. Repeat until blood glucose is above 70 mg/dL, up to two times. Caution: glucagon can cause nausea and vomiting. Roll patient on their side when administering to prevent aspiration. guaiFENesin (ROBITUSSIN) 100 mg/5 mL syrup 200 mg 200 mg, Oral, Every 4 hours PRN, Starting on Sun05/30/25 at 0857, Until Sun06/25/25 at 213, cough 0407 (Given - Provider: Emeli Pham, VITALIY) haloperidoL (HALDOL) tablet 2 mg 2 mg, Oral, 2 times daily PRN, Starting on Sun06/03/25 at 1715, Until Sun06/25/25 at 3, agitation, For mild/moderate agitation. iohexoL (OMNIPAQUE) 240 mg iodine/mL solution 20 mL 20 mL, Intravenous, Once in imaging, Starting on Sun05/12/25 at 1740, For 1 dose, Hydrate well prior to and following administration. ipratropium-albuteroL (DUONEB) 0.5-2.5 mg/3 mL nebulizer solution 3 mL 3 mL, Nebulization, Every 4 hours PRN, Starting on Sun06/02/25 at 1000, Until Sun06/25/25 at 2133, wheezing, shortness of breath peripheral line: sodium chloride 0.9 % (NS) flush(Linked Group 2) 3 mL, Intravenous, Every 1 min PRN, Starting on Sun04/16/25 at 1450, Until Sun06/25/25 at 2133, line care simethicone (MYLICON) chewable tablet 80 mg 80 mg, G-tube, Every 6 hours PRN, Starting on Sun06/16/25 at 1158, Until Sun06/25/25 at 2133, flatulence sodium chloride (OCEAN) 0.65 % nasal spray 2 spray 2 spray, Each Nare, Every 2 hour PRN, Starting on Sun06/14/25 at 1613, Until Sun06/25/25 at 2133, irritation sodium chloride 3 % nebulizer solution 4 mL 4 mL, Nebulization, Every 4 hours PRN, Starting on Sun05/28/25 at 1435, Until Sun06/25/25 at 2133, other Linked Groups Order Group 1: haloperidoL (HALDOL) tablet 1 mgJump to med 1 mg, G-tube, Daily, First dose (after last modification) on Sun06/05/25 at 0900, Until Discontinued And haloperidoL (HALDOL) tablet 3 mgJump to med 3 mg, G-tube, At bedtime, First dose (after last modification) on Sun06/04/25 at 2100, Until Discontinued Group 2: Insert and Maintain Peripheral IV (CANCELED) Routine, Continuous, Starting on Sun04/16/25 at 1451, Until Specified And peripheral line: sodium chloride (NS) 0.9% flushJump to med 3 mL, Intravenous, Every 12 hours scheduled, First dose on Sun04/16/25 at 2100, Until Discontinued And peripheral line: sodium chloride 0.9 % (NS) flushJump to med 3 mL, Intravenous, Every 1 min PRN, Starting on Sun04/16/25 at 1450, Until Sun06/25/25 at 213, line care Group 3: dextrose (TRUEPLUS) 40% oral gel 15 gJump to med 15 g, Oral, Every 15 min PRN, Starting on Sun05/27/25 at 1209, Until Sun06/25/25 at 213, low blood sugar, Use if patient does NOT have an altered level of consciousness, is tolerating PO, and blood glucose is 70 mg/dL or less. Repeat until blood glucose is above 70 mg/dL, up to two times. If blood glucose remains 70 mg/dL or less, proceed to IV dextrose. May substitute 4 oz of fruit juice/non-diet soda based on patient's preference. Or dextrose 50% (D50W) injection 12.5 gJump to med 25 mL (12.5 g), Intravenous, As needed, Starting on Sun05/27/25 at 1209, Until Sun06/25/25 at 2133, Use if patient is NPO, has IV access, does NOT have an altered level of consciousness, and blood glucose is 70 mg/dL or less. Admin every 15 min PRN. Repeat until blood glucose is above 70 mg/dL. Or dextrose 50% (D50W) injection 25 gJump to med 50 mL (25 g), Intravenous, As needed, Starting on Sun05/27/25 at 1209, Until Kristy 06/25/25 at 2133, Use if patient is NPO, has IV access, WITH an altered level of consciousness, and blood glucose is 70 mg/dL or less. Admin every 15 min PRN. Repeat until blood glucose is above 70 mg/dL. Or glucagon injection 1 mgJump to med 1 mg, Intramuscular, As needed, Starting on Sun05/27/25 at 1209, Until Kristy 06/25/25 at 2133, Use if patient is NPO, does NOT have IV access, and blood glucose is 70 mg/dL or less. Admin every 15 min PRN. Repeat until blood glucose is above 70 mg/dL, up to two times. Caution: glucagon can cause nausea and vomiting. Roll patient on their side when administering to prevent aspiration. 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 [address] [place] [id number] PCP - General 11/09/22 documented as of this encounter
[2025-06-28] VITALS (9 sets, daily range): BP systolic 127–152; BP diastolic 76–83; PULSE 91–109; RESP 16–20; TEMP 36.1–36.4; O2SAT 96–99
--- NOTE | 2025-06-28 01:54 | PM.IMHP ---
History of Present Illness Date of Service: 06/28/25 Attending physician on admission: Hamida Rincon Chief Complaint: Altered mental status Carter Raymundo is a 70 years old man with PMHx significant for schizophrenia there was admitted to the psychiatric service 2 days ago. Prior to admission he was at [facility] after he presented with as lethargy and mute. It was also documented that he had had episodes of unresponsiveness with negative workup for stroke/[place]/seizures. Miguel A I was contacted by nursing stating that the patient is lethargic and is having episodes of apnea. He has been having issues managing his secretions and requiring secretions suctioned and breathing treatments. Yesterday CXR was performed and came back normal. On evaluation, the patient seems to be sleeping, awakes upon painful stimuli. He received his psych meds last night. His vital signs have remained stable. The patient has a PEG tube due to dysphagia Review of Systems Review of Systems: Yes Unobtainable due to mental status PMFSH Social History Household Members: Other Household Members Other:: Facility residents Housing: Residential Do you presently have visiting nurse or other home services: No Comment: on 1:1 Patient Tobacco Use Status: Never used Tobacco e-Cigarette/Vaping Use: Never Used Second Hand Smoke Exposure: No service: No Sexual orientation: Straight/Heterosexual Meds Allergies Allergy/AdvReac Type Severity Reaction Status Date / Time No Known Allergies Allergy Verified 06/25/25 21:33 Active Medications: Current Medications Enoxaparin Sodium (Enoxaparin Sodium 40 Mg/0.4 Ml Syringe) 40 mg SUBCUT Q24H [facility] Sodium Chloride (0.9 % Sodium Chloride Flush 3 Ml Syringe) 3 ml IVFLUSH QSHIFT [facility] Home Medications ?Medication ?Instructions ?Recorded ?Confirmed ?Last Taken ?Type acetaminophen 500 mg tablet 1,000 mg feeding tube TID 06/25/25 06/25/25 06/25/25 09:40 History atorvastatin 20 mg tablet 20 mg feeding tube DAILY 06/25/25 06/25/25 06/24/25 21:00 History bisacodyl 10 mg rectal suppository 10 mg SC DAILY PRN Constipation 06/25/25 06/25/25 05/13/25 20:40 History calcium carbonate 1,000 mg feeding tube TID PRN 06/25/25 06/25/25 Unknown History Heartburn clozapine 100 mg tablet 200 mg feeding tube BEDTIME 06/25/25 06/25/25 06/24/25 21:07 History clozapine 25 mg tablet 25 mg feeding tube QAM 06/25/25 06/25/25 06/25/25 09:41 History diclofenac sodium 1 % topical gel 2 g topical QID PRN Pain 06/25/25 06/25/25 06/23/25 21:35 History enoxaparin 40 mg/0.4 mL 40 mg subcut DAILY 06/25/25 06/25/25 06/24/25 21:06 History subcutaneous syringe famotidine 20 mg tablet 20 mg feeding tube BID 06/25/25 06/25/25 06/25/25 09:41 History gabapentin 100 mg capsule 100 mg feeding tube QAM 06/25/25 06/25/25 06/25/25 09:40 History gabapentin 100 mg capsule 300 mg feeding tube BEDTIME 06/25/25 06/25/25 06/24/25 21:13 History guaifenesin 100 mg/5 mL oral liquid 200 mg feeding tube Q4H PRN Cough 06/25/25 06/25/25 06/23/25 04:05 History haloperidol 1 mg tablet 1 mg feeding tube QAM 06/25/25 06/25/25 06/25/25 09:04 History haloperidol 1 mg tablet 3 mg feeding tube BEDTIME 06/25/25 06/25/25 06/24/25 21:07 History haloperidol 2 mg tablet 2 mg feeding tube BID PRN Agitation 06/25/25 06/25/25 06/14/25 16:55 History ipratropium 0.5 mg-albuterol 3 mg 3 ml inhalation Q4H PRN Shortness 06/25/25 06/25/25 Unknown History (2.5 mg base)/3 mL nebulization Of Breath soln lactulose 10 gram/15 mL oral 20 g SC BID 06/25/25 06/25/25 06/25/25 09:40 History solution lidocaine 4 % topical patch 1 patch topical DAILY 06/25/25 06/25/25 06/24/25 09:40 History multivitamin with minerals 15 ml feeding tube DAILY 06/25/25 06/25/25 06/25/25 09:40 History polyethylene glycol 3350 17 gram 17 g feeding tube BID 06/25/25 06/25/25 06/25/25 09:40 History oral powder packet (Miralax) ramelteon 8 mg tablet 8 mg PO BEDTIME 06/25/25 06/25/25 06/24/25 21:06 History simethicone 80 mg chewable tablet 80 mg PO Q6H PRN Dyspepsia 06/25/25 06/25/25 06/20/25 10:10 History tamsulosin 0.4 mg capsule 0.4 mg PO BEDTIME 06/25/25 06/25/25 06/24/25 21:00 History trazodone 150 mg tablet 150 mg feeding tube BEDTIME 06/25/25 06/25/25 06/24/25 21:00 History valproic acid (as sodium salt) 250 500 mg feeding tube BID 06/25/25 06/25/25 06/24/25 09:40 History mg/5 mL oral solution Physical Exam Vital Signs and Narrative: Vital Signs: Constitutional - Sleeping, opens eyes with painful stimuli. No apparent distress. Chronically ill. HEENT - PER, EOMI Heart - RRR, No murmurs Lungs - Normal lung expansion, Normal respiratory effort, No respiratory distress no tachypnea. Bilateral rhonchi. No wheezing or crackles. Abdomen - NT / ND; +BS; No rebound or guarding. Peg tube in place. Extremities - no calf tenderness bilaterally, no swelling Musculoskeletal - Normal inspection, normal ROM Skin - Warm/Dry Neurological - Lethargic. Psychological - No agitation. Assessment and Plan (1) Schizophrenia: Qualifiers: Schizophrenia type: unspecified Qualified Code(s): F20.9 - Schizophrenia, unspecified Status: Acute (2) Dysphagia: Qualifiers: Dysphagia type: unspecified Qualified Code(s): R13.10 - Dysphagia, unspecified Status: Acute Plan Carter Raymundo is a 70 y/o man with the following medical problems: Lethargy, likely secondary to psychiatric meds + ?Periods of apnea. Telemetry. Pulse oximetry. There is no respiratory acidosis. Ammonia is normal (pt takes valproic acid). Recent CXR is negative. BNP is normal. Prior to current hospitalization patient was at [facility] and had workup negative for seizures and stroke. Difficulty managing secretions. Suctioning as needed. DuoNeb Dysphagia. G-tube in place. Continue tube feeding. Hyperlipidemia/CAD. Continue Lipitor. Constipation. Continue lactulose. GERD. Continue Pepcid. BPH. Continue tamsulosin. Schizophrenia. Per psychiatric. Patient will need hospitalization for at least 2 midnights for lethargy and periods of apnea observed by nursing management and treatment with continuous cardiac monitoring and pulse oximetry. This note is constructed using voice recognition software. While every effort has been made to ensure accuracy, belt loop machine operator errors may have been included. Quality Stroke Does the patient have a stroke diagnosis?: No VTE Prior VTE?: No VTE Risk Level:: Medical - moderate - high VTE Device Contraindication: Treatment Not Indicated VTE Drug Contraindication: N/A - Med Ordered
--- OUTSIDE RECORDS SUMMARY | 2025-06-28 02:05 | XMS_ITS | Encounter Summary ---
Author Organization [facility] Address [address] [id number] Care Team Providers Care Director Business Integration Name Role Phone Malcolm Edmondson Primary Care Provider [phone] System, Provider Not In Primary Care Provider Un available Kalyan, Johanna Alonso Primary Care Provider Unavai lable Kalyan, Johanna Alonso Primary Care Provider Unavai lable Unknown, Provider Primary Care Provider Unava ilable None, Pcp Primary Care Provider UnavailJohanna Sorto MD Primary Care Provider [phone] None, Pcp Primary Care Provider UnavailSkye Chang MD Primary Care Provider [phone] Kilo Valera Jr. Primary Care Provid er Encounter Details Date Type Department Care Team (Late st Contact Info) Description 03/31/2015 Orders Only [facility] - [address] [place] [address] Param Rhodes MD [address] [place] [id number] Schizoaffective disorder, unspecified condition (Primary Dx) Social [...] - 1.3 mg/dL 05/12/2015 7:38 PM EDT [facility] GFR Historical (MDRD) 54(L) >=60 mL/min/BSA 05/12/2015 7:38 PM EDT [facility] Estimated GFR (MDRD) 45(L) >=60 mL/min/BSA 05/12/2015 7:38 PM EDT [facility] Blood specimen (specimen) Venipuncture / Unknown 05/12/2015 5:30 PM EDT 05/12/2015 6:03 PM EDT [facility] - 05/12/2015 7:38 PM EDT Chronic Kidney Disease(CKD) Stages based on estimated GFR: GFR ml/min/1.73m^2 Stage of CKD 30-59 3 15-29 4 <15(or dialysis) 5 The GFR estimate is not accurate for: a) Acute renal failure. b) Dosage calculations for Pharmacy drugs. us Param Rhodes MD LAB BLOOD ORDERABLES Final Re sult [address] [address] * (ABNORMAL) Hepatic Function Panel (05/12/2015 5:30 PM EDT) Total Protein 7.1 6.2 - 8.2 g/dL 05/12/2015 7:38 PM EDT [facility] Albumin, Blood 3.7 3.4 - 4.9 g/dL 05/12/2015 7:38 PM EDT [facility] Total Bilirubin 0.4 0.2 - 1.3 mg/dL 05/12/2015 7:38 PM EDT [facility] Direct Bilirubin 0.1 0.1 - 0.5 mg/dL 05/12/2015 7:38 PM EDT [facility] Alkaline Phosphatase 120(H) 30 - 115 IU/L 05/12/2015 7:38 PM EDT [facility] AST (SGOT) 24 11 - 40 IU/L 05/12/2015 7:38 PM EDT [facility] ALT (SGPT) 34 7 - 40 IU/L 05/12/2015 7:38 PM EDT [facility] Blood specimen (specimen) Venipuncture / Unknown 05/12/2015 5:30 PM EDT 05/12/2015 6:03 PM EDT Param Rhodes MD LAB BLOOD ORDERABLES Final Re sult Performing Organization Address [facility]/ZIP Co de Phone Number [address] [address] * Valproic Acid Level (05/12/2015 5:30 PM EDT) Valproic Acid Level, Blood 72 50 - 100 ug/mL 05/12/2015 7:27 PM EDT [facility] Blood specimen (specimen) Venipuncture / Unknown 05/12/2015 5:30 PM EDT 05/12/2015 6:03 PM EDT Param Rhodes MD LAB BLOOD ORDERABLES Final Re sult Performing Organization Address [facility] Co de Phone Number [address] [address] * (ABNORMAL) Creatinine with GFRE (04/07/2015 5:31 PM EDT) Creatinine, Blood 1.6(H) 0.6 - 1.3 mg/dL 04/07/2015 7:52 PM EDT [facility] GFR Historical (MDRD) 54(L) >=60 mL/min/BSA 04/07/2015 7:52 PM EDT [facility] Estimated GFR (MDRD) 45(L) >=60 mL/min/BSA 04/07/2015 7:52 PM EDT [facility] Blood specimen (specimen) Venipuncture / Unknown 04/07/2015 5:31 PM EDT 04/07/2015 6:11 PM EDT Narrative [facility] - 04/07/2015 7:52 PM EDT Chronic Kidney Disease(CKD) Stages based on estimated GFR: GFR ml/min/1.73m^2 Stage of CKD 30-59 3 15-29 4 <15(or dialysis) 5 The GFR estimate is not accurate for: a) Acute renal failure. b) Dosage calculations for Pharmacy drugs. Param Rhodes MD LAB BLOOD ORDERABLES Final Re sult Performing Organization Address [facility] Co de Phone Number [address] [address] * Hepatic Function Panel (04/07/2015 5:31 PM EDT) Total Protein 6.9 6.2 - 8.2 g/dL 04/07/2015 7:52 PM EDT [facility] Albumin, Blood 3.6 3.4 - 4.9 g/dL 04/07/2015 7:52 PM EDT [facility] Total Bilirubin 0.4 0.2 - 1.3 mg/dL 04/07/2015 7:52 PM T [facility] Direct Bilirubin 0.2 0.1 - 0.5 mg/dL 04/07/2015 7:52 PM T [facility] Alkaline Phosphatase 100 30 - 115 IU/L 04/07/2015 7:52 PM EDT [facility] AST (SGOT) 19 11 - 40 IU/L 04/07/2015 7:52 PM EDT [facility] ALT (SGPT) 30 7 - 40 IU/L 04/07/2015 7:52 PM EDT [facility] Blood specimen (specimen) Venipuncture / Unknown 04/07/2015 5:31 PM EDT 04/07/2015 6:11 PM EDT Param Rhodes MD LAB BLOOD ORDERABLES Final Re sult Performing Organization Address [facility] Co de Phone Number [address] [place] [address] * Valproic Acid Level (04/07/2015 5:31 PM EDT) Valproic Acid Level, Blood 60 50 - 100 ug/mL 04/07/2015 7:35 PM EDT [facility] Blood specimen (specimen) Venipuncture / Unknown 04/07/2015 5:31 PM EDT 04/07/2015 6:11 PM EDT us Param Rhodes MD LAB BLOOD ORDERABLES Final Re sult [address] [address] documented in this encounter Visit Diagnoses Diagnosis [...] documented as of this encounter Care Teams Director Business Integration Relationship Specialty Start Date End Date Malcolm Edmondson PCP - General 08/31/14 12/31/19 System, Provider Not In PCP - General 01/01/20 04/13/20 Johanna Biggs [address] [place] [address] PCP - General 04/14/20 10/27/20 Johanna Biggs [address] [place] [address] PCP - General 10/28/20 01/03/21 Unknown, Provider, [address] [place] [address] PCP - General 01/04/21 03/10/21 None, Pcp, [address] [place] [address] PCP - General 03/11/21 11/22/21 Johanna Biggs MD [address] [place] [address] PCP - General Family Practice 11/23/21 05/29/22 None, Pcp, [address] [place] [address] PCP - General 05/30/22 05/31/22 Skye De Leon MD [address] [place] [address] PCP - General Internal Medicine 06/01/22 11/08/22 Kilo Valera Jr. [address] [place] [phone] PCP - General 11/09/22 documented as of this encounter
--- OUTSIDE RECORDS SUMMARY | 2025-06-28 02:05 | XMS_ITS | Encounter Summary ---
Author Organization [facility] Address [address] [place] [address] Care Team Providers Care Aluminum Boats Assembler Name Role Phone Malcolm Edmondson Primary Care Provider [phone] System, Provider Not In Primary Care Provider Un available Kalyan, Johanan Alonso Primary Care Provider Unavai lable Kalyan, Johanna Alonso Primary Care Provider Unavai lable Unknown, Provider Primary Care Provider Unava ilable None, Pcp Primary Care Provider Johanna Kidd MD Primary Care Provider [phone] None, Pcp Primary Care Provider Skye Morton MD Primary Care Provider [phone] Kilo Valera Jr. Primary Care Provid er Encounter Details Date Type Department Care Team (Late st Contact Info) Description 03/08/2015 Orders Only [facility] - [address] [place] [id number] Carter Rhodes [address] [place] [address] Social History Tobacco Use Types [...] documented as of this encounter Care Teams Aluminum Boats Assembler Relationship Specialty Start Date End Date Malcolm Edmondson PCP - General 08/31/14 12/31/19 System, Provider Not In PCP - General 01/01/20 04/13/20 Johanna Biggs [address] [place] [address] [address] [place] [address] PCP - General 04/14/20 10/27/20 Johanna Biggs [address] [place] [address] [address] [place] [address] PCP - General 10/28/20 01/03/21 Unknown, Provider, [address] [place] [address] PCP - General 01/04/21 03/10/21 None, Pcp, [address] [place] [address] PCP - General 03/11/21 11/22/21 Johanna Biggs MD [address] [place] [address] PCP - General Family Practice 11/23/21 05/29/22 None, Pcp, [address] [place] [address] PCP - General 05/30/22 05/31/22 Skye De Leon MD [address] [place] [address] PCP - General Internal Medicine 06/01/22 11/08/22 Kilo Valera Jr. [address] [place] [address] PCP - General 11/09/22 documented as of this encounter
--- OUTSIDE RECORDS SUMMARY | 2025-06-28 02:05 | XMS_ITS | Clinical Summary ---
Author Organization [facility] Address [address] [place] [address] Phone Care Team Providers Care Business Services Administrator Name Role Phone Malcolm Edmondson MD Unavailable [...] Vaccine (1 of 2) 2007 COVID-19 Vaccine (1 - 2023-2 5 season) 2025 INFLUENZA VACCINE (#1) 2025 RSV Immunization 60 [...] age to complete this topic Care Teams Business Services Administrator Relationship Specialty Start Date End Date Malcolm Edmondson MD [address] PCP - Insurance 04/08/15
--- OUTSIDE RECORDS SUMMARY | 2025-06-28 02:05 | XMS_ITS | Encounter Summary ---
Author Organization Kaylin hanna Address [address] [id number] Care Team Providers Care Granite Installer Name Role Phone Malcolm Edmondson Primary Care Provider [phone] System, Provider Not In Primary Care Provider Un available Kalyan, Johanna Alonso Primary Care Provider Unavai lable Kalyan, Johanna Alonso Primary Care Provider Unavai lable Unknown, Provider Primary Care Provider Unava ilable None, Pcp Primary Care Provider UnavailJohanna Sorto MD Primary Care Provider [phone] None, Pcp Primary Care Provider UnavailSkye Chang MD Primary Care Provider [phone] Kilo Valera Jr. Primary Care Provid er Encounter Details Date Type Department Care Team (Late st Contact Info) Description 06/09/2015 Orders Only [facility] - [address] [place] [address] Param Rhodes MD [address] [place] [id number] Schizoaffective disorder, unspecified condition (Primary Dx) Social [...] Creatinine with GFRE (04/05/2016 5:48 PM EDT) [facility] Signature Creatinine, Blood 1.6(H) 0.6 - 1.3 mg/dL 04/05/2016 7:29 PM EDT [facility] GFR Historical (MDRD) 54(L) >=60 mL/min/BSA 04/05/2016 7:29 PM EDT [facility] Estimated GFR (MDRD) 45(L) >=60 mL/min/BSA 04/05/2016 7:29 PM EDT [facility] GFR Estimate Comment 04/05/2016 7:29 PM [facility] Comment: Chronic Kidney Disease(CKD) [...] ORDERABLES Final Re sult Performing Organization Address [facility] de Phone Number [address] [address] * Hepatic Function Panel (04/05/2016 5:48 PM EDT) Total Protein 6.4 6.2 - 8.2 g/dL 04/05/2016 7:29 PM EDT [facility] Albumin, Blood 3.6 3.4 - 4.9 g/dL 04/05/2016 7:29 PM EDT [facility] Total Bilirubin 0.4 0.2 - 1.3 mg/dL 04/05/2016 7:29 PM EDT [facility] Direct Bilirubin 0.1 0.1 - 0.5 mg/dL 04/05/2016 7:29 PM EDT [facility] Alkaline Phosphatase 91 30 - 115 IU/L 04/05/2016 7:29 PM EDT [facility] AST (SGOT) 14 11 - 40 IU/L 04/05/2016 7:29 PM EDT [facility] ALT (SGPT) 19 7 - 40 IU/L 04/05/2016 7:29 PM EDT [facility] Blood specimen (specimen) Venipuncture / Unknown 04/05/2016 5:48 PM EDT 04/05/2016 6:12 PM EDT us Param Rhodes MD LAB BLOOD ORDERABLES Final Re sult Performing Organization Address [facility] de Phone Number [address] [address] * Valproic Acid Level (04/05/2016 5:48 PM EDT) Valproic Acid Level, Blood 59 50 - 100 ug/mL 04/05/2016 6:57 PM EDT [facility] Blood specimen (specimen) Venipuncture / Unknown 04/05/2016 5:48 PM EDT 04/05/2016 6:10 PM EDT us Param Rhodes MD LAB BLOOD ORDERABLES Final Re sult Performing Organization Address [facility] de Phone Number [address] [address] * (ABNORMAL) Creatinine with GFRE (03/10/2016 9:04 AM EDT) Creatinine, Blood 1.6(H) 0.6 - 1.3 mg/dL 03/10/2016 10:03 AM EDT [facility] GFR Historical (MDRD) 54(L) >=60 mL/min/BSA 03/10/2016 10:03 AM EDT [facility] Estimated GFR (MDRD) 45(L) >=60 mL/min/BSA 03/10/2016 10:03 AM EDT [facility] GFR Estimate Comment 03/10/2016 10:03 AM T [facility] Comment: Chronic Kidney Disease(CKD) Stages based on estimated GFR: GFR ml/min/1.73m^2 Stage of CKD 30-59 3 15-29 4 <15(or dialysis) 5 The GFR estimate is not accurate for: a) Acute renal failure. b) Dosage calculations for Pharmacy drugs. Blood specimen (specimen) Venipuncture / Unknown 03/10/2016 9:04 AM EDT 03/10/2016 9:27 AM EDT Param Rhodes MD LAB BLOOD ORDERABLES Final Re [facility] Performing Organization Address [facility] Co de Phone Number [address] [address] * Hepatic Function Panel (03/10/2016 9:04 AM EDT) Total Protein 6.6 6.2 - 8.2 g/dL 03/10/2016 10:03 AM EDT [facility] Albumin, Blood 3.7 3.4 - 4.9 g/dL 03/10/2016 10:03 AM EDT [facility] Total Bilirubin 0.4 0.2 - 1.3 mg/dL 03/10/2016 10:03 AM EDT [facility] Direct Bilirubin 0.1 0.1 - 0.5 mg/dL 03/10/2016 10:03 AM EDT [facility] Alkaline Phosphatase 103 30 - 115 IU/L 03/10/2016 10:03 AM EDT [facility] AST (SGOT) 15 11 - 40 IU/L 03/10/2016 10:03 AM EDT [facility] ALT (SGPT) 20 7 - 40 IU/L 03/10/2016 10:03 AM EDT [facility] Blood specimen (specimen) Venipuncture / Unknown 03/10/2016 9:04 AM EDT 03/10/2016 9:27 AM EDT Param Rhodes MD LAB BLOOD ORDERABLES Final Re sult Performing Organization Address [facility]/ZIP Co de Phone Number [address] [address] * Valproic Acid Level (03/10/2016 9:04 AM EDT) Valproic Acid Level, Blood 72 50 - 100 ug/mL 03/10/2016 9:53 AM EDT [facility] Blood specimen (specimen) Venipuncture / Unknown 03/10/2016 9:04 AM EDT 03/10/2016 9:27 AM EDT Param Rhodes MD LAB BLOOD ORDERABLES Final Re sult Performing Organization Address [facility] Co de Phone Number [address] [address] * (ABNORMAL) Creatinine with GFRE (02/17/2016 5:36 PM EDT) Creatinine, Blood 1.6(H) 0.6 - 1.3 mg/dL 02/17/2016 8:24 PM EDT [facility] GFR Historical (MDRD) 54(L) >=60 mL/min/BSA 02/17/2016 8:24 PM EDT [facility] Estimated GFR (MDRD) 45(L) >=60 mL/min/BSA 02/17/2016 8:24 PM EDT [facility] GFR Estimate Comment 02/17/2016 8:24 PM EDT [facility] Comment: Chronic Kidney Disease(CKD) Stages based on estimated GFR: GFR ml/min/1.73m^2 Stage of CKD 30-59 3 15-29 4 <15(or dialysis) 5 The GFR estimate is not accurate for: a) Acute renal failure. b) Dosage calculations for Pharmacy drugs. Blood specimen (specimen) Venipuncture / Unknown 02/17/2016 5:36 PM EDT 02/17/2016 5:54 PM EDT Param Rhodes MD LAB BLOOD ORDERABLES Final Re sult [address] [place] [id number] * (ABNORMAL) Hepatic Function Panel (02/17/2016 5:36 PM EDT) Total Protein 6.7 6.2 - 8.2 g/dL 02/17/2016 8:24 PM EDT [facility] Albumin, Blood 3.5 3.4 - 4.9 g/dL 02/17/2016 8:24 PM T [facility] Total Bilirubin 0.3 0.2 - 1.3 mg/dL 02/17[facility]2016 [facility] Direct Bilirubin <0.1(L) 0.1 - 0.5 mg/dL 02/17/2016 8:24 PM EDT [facility] Alkaline Phosphatase 95 30 - 115 IU/L 02/17/2016 8:24 PM EDT [facility] AST (SGOT) 15 11 - 40 IU/L 02/17/2016 8:24 PM EDT [facility] ALT (SGPT) 19 7 - 40 IU/L 02/17/2016 8:24 PM EDT [facility] Blood specimen (specimen) Venipuncture / Unknown 02/17/2016 5:36 PM EDT 02/17/2016 5:54 PM EDT Param Rhodes MD LAB BLOOD ORDERABLES Final Re sult Performing Organization Address [facility]/ZIP Co de Phone Number [address] [address] * Valproic Acid Level (02/17/2016 5:36 PM EDT) Valproic Acid Level, Blood 56 50 - 100 ug/mL 02/17/2016 7:51 PM EDT [facility] Blood specimen (specimen) Venipuncture / Unknown 02/17/2016 5:36 PM EDT 02/17/2016 5:54 PM EDT Param Rhodes MD LAB BLOOD ORDERABLES Final Re sult Performing Organization Address [facility] de Phone Number [address] [address] * (ABNORMAL) Creatinine with GFRE (01/19/2016 5:37 PM EDT) Pathologist [facility] Creatinine, Blood 1.5(H) 0.6 - 1.3 mg/dL 01/19/2016 7:39 PM EDT [facility] GFR Historical (MDRD) 58(L) >=60 mL/min/BSA 01/19/2016 7:39 PM EDT [facility] Estimated GFR (MDRD) 48(L) >=60 mL/min/BSA 01/19/2016 7:39 PM EDT [facility] GFR Estimate Comment 01/19/2016 7:39 PM T [facility] Comment: Chronic Kidney Disease(CKD) Stages based on estimated GFR: GFR ml/min/1.73m^2 Stage of CKD 30-59 3 15-29 4 <15(or dialysis) 5 The GFR estimate is not accurate for: a) Acute renal failure. b) Dosage calculations for Pharmacy drugs. Blood specimen (specimen) Venipuncture / Unknown 01/19/2016 5:37 PM EDT 01/19/2016 6:07 PM EDT us Paarm Rhodes MD LAB BLOOD ORDERABLES Final Re sult Performing Organization Address [facility] Co de Phone Number [address] [address] * Hepatic Function Panel (01/19/2016 5:37 PM EDT) Total Protein 6.7 6.2 - 8.2 g/dL 01/19/2016 7:39 PM EDT [facility] Albumin, Blood 3.7 3.4 - 4.9 g/dL 01/19/2016 7:39 PM EDT [facility] Total Bilirubin 0.4 0.2 - 1.3 mg/dL 01/19/2016 7:39 PM EDT [facility] Direct Bilirubin 0.1 0.1 - 0.5 mg/dL 01/19/2016 7:39 PM EDT [facility] Alkaline Phosphatase 90 30 - 115 IU/L 01/19/2016 7:39 PM EDT [facility] AST (SGOT) 17 11 - 40 IU/L 01/19/2016 7:39 PM EDT [facility] ALT (SGPT) 22 7 - 40 IU/L 01/19/2016 7:39 PM EDT [facility] Blood specimen (specimen) Venipuncture / Unknown 01/19/2016 5:37 PM EDT 01/19/2016 6:07 PM EDT Param Rhodes MD LAB BLOOD ORDERABLES Final Re sult Performing Organization Address [facility] Co de Phone Number [address] [address] * Valproic Acid Level (01/19/2016 5:37 PM EDT) Valproic Acid Level, Blood 54 50 - 100 ug/mL 01/19/2016 7:29 PM EDT [facility] Blood specimen (specimen) Venipuncture / Unknown 01/19/2016 5:37 PM EDT 01/19/2016 6:07 PM EDT Param Rhodes MD LAB BLOOD ORDERABLES Final Re sult Performing Organization Address City/[facility] Co de Phone Number [address] [address] * (ABNORMAL) Creatinine with GFRE (12/22/2015 5:40 PM EST) Creatinine, Blood 1.6(H) 0.6 - 1.3 mg/dL 12/22/2015 7:42 PM [facility] GFR Historical (MDRD) 54(L) >=60 mL/min/BSA 12/22/2015 7:[address] [facility] Estimated GFR (MDRD) 45(L) >=60 mL/min/BSA 12/22/2015 7:[address] [facility] Blood specimen (specimen) Venipuncture / Unknown 12/22/2015 5:40 PM EST 12/22/2015 6:01 PM EST [facility] - 12/22/2015 7:42 PM EST Chronic Kidney Disease(CKD) Stages based on estimated GFR: GFR ml/min/1.73m^2 Stage of CKD 30-59 3 15-29 4 <15(or dialysis) 5 The GFR estimate is not accurate for: a) Acute renal failure. b) Dosage calculations for Pharmacy drugs. Param Rhodes MD LAB BLOOD ORDERABLES Final Nica valdez Performing Organization Address [facility] Co de Phone Number [address] [address] * Hepatic Function Panel (12/22/2015 5:40 PM EST) Total Protein 6.6 6.2 - 8.2 g/dL 12/22/2015 7:42 PM [facility] Albumin, Blood 3.7 3.4 - 4.9 g/dL 12/22/2015 7:42 PM [facility] Total Bilirubin 0.4 0.2 - 1.3 mg/dL 12/22/2015 7:42 PM [facility] Direct Bilirubin 0.2 0.1 - 0.5 mg/dL 12/22/2015 7:42 PM [facility] Alkaline Phosphatase 88 30 - 115 IU/L 12/22/2015 7:42 PM [facility] AST (SGOT) 19 11 - 40 IU/L 12/22/2015 7:42 PM [facility] ALT (SGPT) 26 7 - 40 IU/L 12/22/2015 7:42 PM [facility] Blood specimen (specimen) Venipuncture / Unknown 12/22/2015 5:40 PM EST 12/22/2015 6:01 PM EST Param Rhodes MD LAB BLOOD ORDERABLES Final Re sult Performing Organization Address [facility]/ZIP Co de Phone Number [address] [address] * Valproic Acid Level (12/22/2015 5:40 PM EST) Valproic Acid Level, Blood 53 50 - 100 ug/mL 12/22/2015 7:[address] [facility] Blood specimen (specimen) Venipuncture / Unknown 12/22/2015 5:40 PM EST 12/22/2015 6:01 PM EST Param Rhodes MD LAB BLOOD ORDERABLES Final Re sult Performing Organization Address [facility] Co de Phone Number [address] [address] * (ABNORMAL) Creatinine with GFRE (11/17/2015 5:39 PM EST) Creatinine, Blood 1.6(H) 0.6 - 1.3 mg/dL 11/17/2015 7:30 PM [facility] GFR Historical (MDRD) 54(L) >=60 mL/min/BSA 11/17/2015 7:30 PM [facility] Estimated GFR (MDRD) 45(L) >=60 mL/min/BSA 11/17/2015 7:[address] [facility] Blood specimen (specimen) Venipuncture / Unknown 11/17/2015 5:39 PM EST 11/17/2015 6:17 PM EST Narrative [facility] - 11/17/2015 7:30 PM EST Chronic Kidney Disease(CKD) Stages based on estimated GFR: GFR ml/min/1.73m^2 Stage of CKD 30-59 3 15-29 4 <15(or dialysis) 5 The GFR estimate is not accurate for: a) Acute renal failure. b) Dosage calculations for Pharmacy drugs. Param Rhodes MD LAB BLOOD ORDERABLES Final Re sult Performing Organization Address [facility] Co de Phone Number [address] [address] * Hepatic Function Panel (11/17/2015 5:39 PM EST) Pathologist [facility] Total Protein 6.6 6.2 - 8.2 g/dL 11/17/2015 7:30 PM EST [facility] Albumin, Blood 3.7 3.4 - 4.9 g/dL 11/17/2015 7:30 PM EST [facility] Total Bilirubin 0.2 0.2 - 1.3 mg/dL 11/17/2015 7:30 PM [facility] Direct Bilirubin 0.1 0.1 - 0.5 mg/dL 11/17/2015 7:30 PM [facility] Alkaline Phosphatase 92 30 - 115 IU/L 11/17/2015 7:30 PM [facility] AST (SGOT) 16 11 - 40 IU/L 11/17/2015 7:30 PM [facility] ALT (SGPT) 19 7 - 40 IU/L 11/17/2015 7:30 PM EST [facility] Blood specimen (specimen) Venipuncture / Unknown 11/17/2015 5:39 PM EST 11/17/2015 6:17 PM EST Param Rhodes MD LAB BLOOD ORDERABLES Final Re sult Performing Organization Address [facility]/ZIP Co de Phone Number [address] [address] * Valproic Acid Level (11/17/2015 5:39 PM EST) Valproic Acid Level, Blood 66 50 - 100 ug/mL 11/17/2015 7:31 PM EST [facility] Blood specimen (specimen) Venipuncture / Unknown 11/17/2015 5:39 PM EST 11/17/2015 6:17 PM EST Param Rhodes MD LAB BLOOD ORDERABLES Final Re sult Performing Organization Address [facility] de Phone Number [address] [address] * (ABNORMAL) Creatinine with GFRE (10/07/2015 5:47 PM EST) Creatinine, Blood 1.5(H) 0.6 - 1.3 mg/dL 10/07/2015 7:22 PM EST [facility] GFR Historical (MDRD) 58(L) >=60 mL/min/BSA 10/07/2015 7:22 PM EST [facility] Estimated GFR (MDRD) 48(L) >=60 mL/min/BSA 10/07/2015 7:22 PM EST [facility] Blood specimen (specimen) Venipuncture / Unknown 10/07/2015 5:47 PM EST 10/07/2015 6:14 PM EST Narrative [facility] - 10/07/2015 7:22 PM EST Chronic Kidney Disease(CKD) Stages based on estimated GFR: GFR ml/min/1.73m^2 Stage of CKD 30-59 3 15-29 4 <15(or dialysis) 5 The GFR estimate is not accurate for: a) Acute renal failure. b) Dosage calculations for Pharmacy drugs. Param Rhodes MD LAB BLOOD ORDERABLES Final Re sult Performing Organization Address [facility] de Phone Number [address] [address] * Hepatic Function Panel (10/07/2015 5:47 PM EST) Total Protein 6.8 6.2 - 8.2 g/dL 10/07/2015 7:22 PM [facility] Albumin, Blood 3.8 3.4 - 4.9 g/dL 10/07/2015 7:22 PM [facility] Total Bilirubin 0.4 0.2 - 1.3 mg/dL 10/07/2015 7:22 PM [facility] Direct Bilirubin 0.1 0.1 - 0.5 mg/dL 10/07/2015 7:22 PM [facility] Alkaline Phosphatase 108 30 - 115 IU/L 10/07/2015 7:22 PM [facility] AST (SGOT) 15 11 - 40 IU/L 10/07/2015 7:22 PM [facility] ALT (SGPT) 35 7 - 40 IU/L 10/07/2015 7:22 PM [facility] Blood specimen (specimen) Venipuncture / Unknown 10/07/2015 5:47 PM EST 10/07/2015 6:14 PM EST Param Rhodes MD LAB BLOOD ORDERABLES Final Re sult Performing Organization Address City/[facility]/ZIP Co de Phone Number [address] [address] * Valproic Acid Level (10/07/2015 5:47 PM EST) Pathologist [facility] Valproic Acid Level, Blood 69 50 - 100 ug/mL 10/07/2015 7:[address] [facility] Blood specimen (specimen) Venipuncture / Unknown 10/07/2015 5:47 PM EST 10/07/2015 6:13 PM EST Param Rhodes MD LAB BLOOD ORDERABLES Final Re sult Performing Organization Address City/[facility]/ZIP Co de Phone Number [address] [address] * (ABNORMAL) Creatinine with GFRE (09/06/2015 5:41 PM EST) Creatinine, Blood 1.5(H) 0.6 - 1.3 mg/dL 09/06/2015 8:43 PM EST [facility] GFR Historical (MDRD) 58(L) >=60 mL/min/BSA 09/06/2015 8:43 PM [facility] Estimated GFR (MDRD) 48(L) >=60 mL/min/BSA 09/06/2015 8:43 PM [facility] Blood specimen (specimen) Venipuncture / Unknown 09/06/2015 5:41 PM EST 09/06/2015 7:48 PM EST [facility] - 09/06/2015 8:43 PM EST Chronic Kidney Disease(CKD) Stages based on estimated GFR: GFR ml/min/1.73m^2 Stage of CKD 30-59 3 15-29 4 <15(or dialysis) 5 The GFR estimate is not accurate for: a) Acute renal failure. b) Dosage calculations for Pharmacy drugs. Param Rhodes MD LAB BLOOD ORDERABLES Final Re sult [place] [phone] * Hepatic Function Panel (09/06/2015 5:41 PM EST) Total Protein 6.6 6.2 - 8.2 g/dL 09/06/2015 8:43 PM [facility] Albumin, Blood 3.6 3.4 - 4.9 g/dL 09/06/2015 8:43 PM [facility] Total Bilirubin 0.4 0.2 - 1.3 mg/dL 09/06/2015 8:43 PM [facility] Direct Bilirubin 0.1 0.1 - 0.5 mg/dL 09/06/2015 8:43 PM [facility] Alkaline Phosphatase 90 30 - 115 IU/L 09/06/2015 8:43 PM [facility] AST (SGOT) 16 11 - 40 IU/L 09/06/2015 8:43 PM [facility] ALT (SGPT) 21 7 - 40 IU/L 09/06/2015 8:43 PM [facility] Blood specimen (specimen) Venipuncture / Unknown 09/06/2015 5:41 PM EST 09/06/2015 7:48 PM EST Param Rhodes MD LAB BLOOD ORDERABLES Final Re sult [address] [address] * Valproic Acid Level (09/06/2015 5:41 PM EST) Valproic Acid Level, Blood 68 50 - 100 ug/mL 09/06/2015 8:24 PM EST [facility] Blood specimen (specimen) Venipuncture / Unknown 09/06/2015 5:41 PM EST 09/06/2015 7:48 PM EST Param Rhodes MD LAB BLOOD ORDERABLES Final Re sult Performing Organization Address [facility] Co de Phone Number [address] [address] * (ABNORMAL) Creatinine with GFRE (08/04/2015 5:35 PM EDT) Creatinine, Blood 1.7(H) 0.6 - 1.3 mg/dL 08/04/2015 6:30 PM EDT [facility] GFR Historical (MDRD) 50(L) >=60 mL/min/BSA 08/04/2015 6:30 PM EDT [facility] Estimated GFR (MDRD) 42(L) >=60 mL/min/BSA 08/04/2015 6:30 PM EDT [facility] Blood specimen (specimen) Venipuncture / Unknown 08/04/2015 5:35 PM EDT 08/04/2015 6:17 PM EDT [facility] - 08/04/2015 6:30 PM EDT Chronic Kidney Disease(CKD) Stages based on estimated GFR: GFR ml/min/1.73m^2 Stage of CKD 30-59 3 15-29 4 <15(or dialysis) 5 The GFR estimate is not accurate for: a) Acute renal failure. b) Dosage calculations for Pharmacy drugs. us Param Rhodes MD LAB BLOOD ORDERABLES Final Re sult Performing Organization Address [facility] de Phone Number [address] [address] * Hepatic Function Panel (08/04/2015 5:35 PM EDT) Total Protein 6.9 6.2 - 8.2 g/dL 08/04/2015 6:30 PM EDT [facility] Albumin, Blood 3.9 3.4 - 4.9 g/dL 08/04/2015 6:30 PM EDT [facility] Total Bilirubin 0.5 0.2 - 1.3 mg/dL 08/04/2015 6:30 PM EDT [facility] Direct Bilirubin <0.1 <0.3 mg/dL 08/04/2015 6:30 PM EDT [facility] Alkaline Phosphatase 89 30 - 115 IU/L 08/04/2015 6:30 PM EDT [facility] AST (SGOT) 18 11 - 40 IU/L 08/04/2015 6:30 PM EDT [facility] ALT (SGPT) 23 7 - 40 IU/L 08/04/2015 6:30 PM EDT [facility] Blood specimen (specimen) Venipuncture / Unknown 08/04/2015 5:35 PM EDT 08/04/2015 6:17 PM EDT us Param Rhodes MD LAB BLOOD ORDERABLES Final Re sult Performing Organization Address [facility] de Phone Number [address] [address] * Valproic Acid Level (08/04/2015 5:35 PM EDT) Valproic Acid Level, Blood 52 50 - 100 ug/mL 08/04/2015 6:44 PM EDT [facility] Blood specimen (specimen) Venipuncture / Unknown 08/04/2015 5:35 PM EDT 08/04/2015 6:17 PM EDT us Param Rhodes MD LAB BLOOD ORDERABLES Final Re sult Performing Organization Address [facility] [place] [address] * (ABNORMAL) Creatinine with GFRE (07/07/2015 5:46 PM EDT) Creatinine, Blood 1.7(H) 0.6 - 1.3 mg/dL 07/07/2015 6:09 PM EDT [facility] GFR Historical (MDRD) 50(L) >=60 mL/min/BSA 07/07/2015 6:09 PM EDT [facility] Estimated GFR (MDRD) 42(L) >=60 mL/min/BSA 07/07/2015 6:09 PM EDT [facility] Blood specimen (specimen) Venipuncture / Unknown 07/07/2015 5:46 PM EDT 07/07/2015 5:47 PM EDT Narrative [facility] - 07/07/2015 6:09 PM EDT Chronic Kidney Disease(CKD) Stages based on estimated GFR: GFR ml/min/1.73m^2 Stage of CKD 30-59 3 15-29 4 <15(or dialysis) 5 The GFR estimate is not accurate for: a) Acute renal failure. b) Dosage calculations for Pharmacy drugs. Param Rhodes MD LAB BLOOD ORDERABLES Final Re sult Performing Organization Address [facility] Co de Phone Number [address] [address] * Hepatic Function Panel (07/07/2015 5:46 PM EDT) Total Protein 7.1 6.2 - 8.2 g/dL 07/07/2015 6:09 PM EDT [facility] Albumin, Blood 4.0 3.4 - 4.9 g/dL 07/07/2015 6:09 PM EDT [facility] Total Bilirubin 0.5 0.2 - 1.3 mg/dL 07/07/2015 6:09 PM EDT [facility] Direct Bilirubin 0.1 <0.3 mg/dL 07/07/2015 6:09 PM EDT [facility] Alkaline Phosphatase 89 30 - 115 IU/L 07/07/2015 6:09 PM EDT [facility] AST (SGOT) 18 11 - 40 IU/L 07/07/2015 6:09 PM EDT [facility] ALT (SGPT) 25 7 - 40 IU/L 07/07/2015 6:09 PM EDT [facility] Blood specimen (specimen) Venipuncture / Unknown 07/07/2015 5:46 PM EDT 07/07/2015 5:47 PM EDT Param Rhodes MD LAB BLOOD ORDERABLES Final Re sult Performing Organization Address [facility] Co de Phone Number [address] [address] * Valproic Acid Level (07/07/2015 5:46 PM EDT) Valproic Acid Level, Blood 61 50 - 100 ug/mL 07/07/2015 6:09 PM EDT [facility] Blood specimen (specimen) Venipuncture / Unknown 07/07/2015 5:46 PM EDT 07/07/2015 5:47 PM EDT Param Rhodes MD LAB BLOOD ORDERABLES Final Re sult Performing Organization Address City/[facility]/ZIP Co de Phone Number [address] [address] * CBC and Differential (06/09/2015 5:37 PM EDT) WBC 9.46 4.40 - 11.30 K/uL 06/09/2015 7:30 PM EDT [facility] RBC 5.12 4.5 - 5.9 M/uL 06/09/2015 7:30 PM EDT [facility] Hemoglobin 16.5 13.8 - 17.4 g/dL 06/09/2015 7:30 PM EDT [facility] Hematocrit 48.5 41.0 - 51.0 % 06/09/2015 7:30 PM EDT [facility] MCV 95 80 - 96 fL 06/09/2015 7:30 PM EDT [facility] Platelet Count 218 150 - 450 K/uL 06/09/2015 7:30 PM EDT [facility] RDW 13.6 11.6 - 14.6 % 06/09/2015 7:30 PM EDT [facility] Neutrophil 65 % 06/09/2015 7:30 PM EDT [facility] Lymphocyte 26 % 06/09/2015 7:30 PM EDT [facility] Monocyte 8 % 06/09/2015 7:30 PM EDT [facility] Eosinophil 0 % 06/09/2015 7:30 PM EDT [facility] Basophil 0 % 06/09/2015 7:30 PM EDT [facility] Absolute Neutrophil Count 6.17 1.40 - 6.60 K/uL 06/09/2015 7:30 PM EDT [facility] Absolute Lymphocyte Count 2.45 1.20 - 3.50 K/uL 06/09/2015 7:30 PM EDT [facility] Absolute Monocyte Count 0.80 0.00 - 1.00 K/uL 06/09/2015 7:30 PM EDT [facility] Absolute Eosinophil Count 0.00 0.00 - 0.40 K/uL 06/09/2015 7:30 PM EDT [facility] Absolute Basophil Count 0.04 0.00 - 0.20 K/uL 06/09/2015 7:30 PM EDT [facility] MPV 06/09/2015 7:30 PM EDT [facility] Blood specimen (specimen) Venipuncture / Unknown 06/09/2015 5:37 PM EDT 06/09/2015 5:53 PM EDT us Param Rhodes MD LAB BLOOD ORDERABLES Final Re sult [address] [address] * (ABNORMAL) Creatinine with GFRE (06/09/2015 5:37 PM EDT) Creatinine, Blood 1.7(H) 0.6 - 1.3 mg/dL 06/09/2015 7:45 PM EDT [facility] GFR Historical (MDRD) 50(L) >=60 mL/min/BSA 06/09/2015 7:45 PM EDT [facility] Estimated GFR (MDRD) 42(L) >=60 mL/min/BSA 06/09/2015 7:45 PM EDT [facility] Blood specimen (specimen) Venipuncture / Unknown 06/09/2015 5:37 PM EDT 06/09/2015 5:53 PM EDT [facility] - 06/09/2015 7:45 PM EDT Chronic Kidney Disease(CKD) Stages based on estimated GFR: GFR ml/min/1.73m^2 Stage of CKD 30-59 3 15-29 4 <15(or dialysis) 5 The GFR estimate is not accurate for: a) Acute renal failure. b) Dosage calculations for Pharmacy drugs. Param Rhodes MD LAB BLOOD ORDERABLES Final Re sult [address] [id number] * Hepatic Function Panel (06/09/2015 5:37 PM EDT) Total Protein 7.1 6.2 - 8.2 g/dL 06/09/2015 7:45 PM [facility] Albumin, Blood 3.8 3.4 - 4.9 g/dL 06/09/2015 7:45 PM [facility] Total Bilirubin 0.5 0.2 - 1.3 mg/dL 06/09/2015 7:45 PM T [facility] Direct Bilirubin 0.2 0.1 - 0.5 mg/dL 06/09/2015 7:45 PM [facility] Alkaline Phosphatase 94 30 - 115 IU/L 06/09/2015 7:45 PM T [facility] AST (SGOT) 16 11 - 40 IU/L 06/09/2015 7:45 PM T [facility] ALT (SGPT) 21 7 - 40 IU/L 06/09/2015 7:45 PM EDT [facility] Blood specimen (specimen) Venipuncture / Unknown 06/09/2015 5:37 PM EDT 06/09/2015 5:53 PM EDT Param Rhodes MD LAB BLOOD ORDERABLES Final Re sult Performing Organization Address City/[facility]/ZIP Co de Phone Number [address] [address] * Valproic Acid Level (06/09/2015 5:37 PM EDT) Valproic Acid Level, Blood 60 50 - 100 ug/mL 06/09/2015 6:37 PM EDT [facility] Blood specimen (specimen) Venipuncture / Unknown 06/09/2015 5:37 PM EDT 06/09/2015 5:53 PM EDT Param Rhodes MD LAB BLOOD ORDERABLES Final Re sult Performing Organization Address [facility] Co de Phone Number [address] [phone] documented in this encounter Visit Diagnoses Diagnosis [...] documented as of this encounter Care Teams [employer]er Relationship Specialty Start Date End Date Malcolm Edmondson PCP - General 08/31/14 12/31/19 System, Provider Not In PCP - General 01/01/20 04/13/20 Johanna Biggs [address] [place] [address] [address] [place] [address] PCP - General 04/14/20 10/27/20 Johanna Biggs [address] [place] [address] [address] [place] [address] PCP - General 10/28/20 01/03/21 Unknown, Provider, [address] [place] [id number] PCP - General 01/04/21 03/10/21 None, Pcp, [address] [place] [id number] PCP - General 03/11/21 11/22/21 Johanna Biggs MD [address] [place] [id number] PCP - General Family Practice 11/23/21 05/29/22 None, Pcp, [address] [place] [id number] PCP - General 05/30/22 05/31/22 Skye De Leon MD [address] [place] [id number] PCP - General Internal Medicine 06/01/22 11/08/22 Kilo Valera Jr. [address] [place] [id number] PCP - General 11/09/22 documented as of this encounter
--- OUTSIDE RECORDS SUMMARY | 2025-06-28 02:06 | XMS_ITS | Clinical Summary ---
Author Organization [facility] Address [address] [place] [address] Care Team Providers Care Chancery Clerk Name Role Phone Kilo Valera Jr. Primary [...] Hospital Encounter [facility] Medicine [address], [address] [place] [address] Dane Caldwell MD Dagan, MD Michelle Giraldo Shamai A, MD Dowdell, MD Prashant Hilliard, MD Mary Vergara, MD Magnus Vera Matthew, MD Basilio, Carlo, MD Roy, MD Elizabeth Haro, MD Tere White, Noe, MD Xie, SourMD Rod michelle Wendy, MD Deng, Lixia, MD Hale, Caleb P, MD Minor, MD Jimbo Prieto Benjamin, MD Li, MD Trinidad Jorge David, MD Rosenberg, MD Mariano Altered mental status, unspecified altered mental status type (Primary Dx); Tachycardia; Unclassified epileptic seizures (HCC); Chest pain, unspecified type; Schizoaffective disorder, depressive type (HCC); Aspiration into airway, sequela; Aspiration pneumonitis (HCC); FDC current use of therapeutic drug; Abnormal electrocardiography Discharge Disposition: Psychiatric Hospital from Last 3 Months Family History Medical [...] the Last Year Not on file 2024 [facility] Utilities Answer Date Recorded In the [...] Industry Job Start Date Job End Date 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 [employer] Not on file Not on file Not [...] 10/19/2021, 06/28/2020, Additional history exists Blood Pressure 06/25/2026 06/25/2025 DTaP,Tdap,and Td Vaccines (5 - Td [...] ECG 12-LEAD Routine 06/11/2025 11:23 AM EDT report writer current use of therapeutic drug [place] MODIFIED [...] VENOUS STAT 2025 8:2 8 PM EDT PHOSPHORUS STAT 2025 8:23 PM [...] ECG 12-LEAD Routine 05/25/2025 12:17 PM EDT report writer current use of therapeutic drug VALPROIC ACID [...] 04/23/2025 7:21 AM EDT HC VEEG BY Luxim EA INCR 12-26 HR UNMONITORED Routine 04/23/2025 [...] 7:10 AM EDT C-REACTIVE PROTEIN Routine 04/17/2025 7: 40 AM EDT VITAMIN D,25OH Routine 04/17/2025 7:40 AM EDT MAGNESIUM Timed 04/17/2025 7:40 AM EDT PHOSPHORUS Timed 04/17/2025 7:40 AM EDT BASIC METABOLIC PANEL Timed 04/17/2025 7:40 AM EDT CBC Timed 04/17/2025 7:40 AM EDT XR CHEST 2 VW STAT 04/16/2025 2:55 PM EDT SARS COV2/INFLUENZA A/B AND RSV STAT 04/16/2025 9:24 AM EDT DRUG SCREEN, URINE STAT 04/16/2025 6: 54 AM EDT BID URINE HOLD STAT 04/16/2025 [...] Recently Relevant to Health Maintenance Results * ECG 12 lead (06/25/2025 11:19 AM EDT) Only the most recent of17 resultswithin the time period is included. Ventricular Heart Rate 101 BPM EKG BUR MUSE Atrial Heart Rate 101 BPM EKG BUR MUSE SC Interval 142 ms EKG BUR MUSE QRSD Interval 108 ms EKG BUR MUSE QT Interval 372 ms EKG BUR MUSE QTC Interval 482 ms EKG BUR MUSE P Posey 30 degrees EKG BUR MUSE R Posey -29 degrees EKG BUR MUSE T Wave [place]y 30 degrees EKG BUR MUSE 06/25/2025 11:1 [...] Crabtree MD ECG ORDERABLES Final Result EKG BUR MUSE [address] [place] [id number] * (ABNORMAL) Renal Function Panel (06/22/2025 5:26 AM EDT) Only the most recent of3 resultswithin the time period is included. Sodium 142 135 - 147 mmol/L 06/22/2025 6:44 AM EDT [facility] Potassium 4.2 3.5 - 5.4 mmol/L 06/22/2025 6:44 AM EDT [facility] Chloride 103 96 - 108 mmol/L 06/22/2025 6:44 AM EDT [facility] Total CO2/Bicarbonate 28 22 - 32 mmol/L 06/22/2025 6:44 AM EDT [facility] Anion Gap 11 10 - 18 mmol/L 06/22/2025 6:44 AM EDT [facility] BUN 27(H) 6 - 20 mg/dL 06/22/2025 6:44 AM EDT [facility] Creatinine, Blood 0.80 0.50 - 1.20 mg/dL 06/22/2025 6:44 AM EDT [facility] Glucose, Blood 141(H) 70 - 100 mg/dL 06/22/2025 6:44 AM EDT [facility] Calcium 9.0 8.4 - 10.3 mg/dL 06/22/2025 6:44 AM EDT [facility] Albumin, Blood 3.1(L) 3.5 - 5.2 g/dL 06/22/2025 6:44 AM EDT [facility] Phosphorus 3.7 2.7 - 4.5 mg/dL 06/22/2025 6:44 AM EDT [facility] Magnesium, Blood 2.2 1.6 - 2.6 mg/dL 06/22/2025 6:44 AM EDT [facility] Estimated GFR(CKD-EPI) 96 mL/min/BSA 06/22/2025 6:44 AM EDT [facility] Blood PERIPHERAL BLOOD SPECIMEN / Unknown Venipuncture / Unknown 06/22/2025 5:26 AM EDT 06/22/2025 5:47 AM EDT us Govind Olivo MD LAB BLOOD ORDERABLES Final Result [facility] [address] [place] [address], * (ABNORMAL) CBC and Differential (06/22/2025 12:37 AM EDT) Only the most recent of23 resultswithin the time period is included. WBC 6.62 4.00 - 10.00 K/uL 06/22/2025 1:15 AM EDT [facility] RBC 3.67(L) 4.60 - 6.10 M/uL 06/22/2025 1:15 AM EDT [facility] Hemoglobin 11.3(L) 13.7 - 17.5 g/dL 06/22/2025 1:15 AM EDT [facility] Hematocrit 34.7(L) 40.0 - 51.0 % 06/22/2025 1:15 AM EDT [facility] MCV 95 82 - 98 fL 06/22/2025 1:15 AM [facility] MCH 30.8 26.0 - 32.0 pg 06/22/2025 1:15 AM [facility] MCHC 32.6 32.0 - 37.0 g/dL 06/22/2025 1:15 AM [facility] RDW 15.5 10.5 - 15.5 % 06/22/2025 1:15 AM [facility] RDW-SD 53.1(H) 35.1 - 46.3 fL 06/22/2025 1:15 AM [facility] Platelet Count 185 150 - 400 K/uL 06/22/2025 1:15 AM [facility] Nucleated RBC 0 <=0 #/100 WBC 06/22/2025 1:15 AM [facility] Neutrophil 67.5 34.0 - 71.0 % 06/22/2025 1:15 AM [facility] Lymphocyte 20.1 19.0 - 53.0 % 06/22/2025 1:15 AM [facility] Monocyte 10.6 5.0 - 13.0 % 06/22/2025 1:15 AM [facility] Eosinophil 0.0(L) 1.0 - 7.0 % 06/22/2025 1:15 AM [facility] Basophil 0.3 0.0 - 1.0 % 06/22/2025 1:15 AM [facility] Immature Granulocyte ([place], Myelo, Promyelocyte) 1.5(H) 0.0 - 0.6 % 06/22/2025 1:15 AM [facility] Absolute Neutrophil Count 4.47 1.60 - 6.10 K/uL 06/22/2025 1:15 AM [facility] Absolute Lymphocyte Count 1.33 1.20 - 3.70 K/uL 06/22/2025 1:15 AM [facility] Absolute Monocyte Count 0.70 0.20 - 0.80 K/uL 06/22/2025 1:15 AM [facility] Absolute Eosinophil Count 0.00(L) 0.04 - 0.54 K/uL 06/22/2025 1:15 AM EDT [facility] Absolute Basophil Count 0.02 0.01 - 0.08 K/uL 06/22/2025 1:15 AM EDT [facility] Absolute Immature Granulocyte ([place], Myelo, Promyelocyte) 0.10(H) 0.00 - 0.09 K/uL 06/22/2025 1:15 AM EDT [facility] Blood PERIPHERAL BLOOD SPECIMEN / Unknown Venipuncture / Unknown 06/22/2025 12:37 AM EDT 06/22/2025 1:04 AM EDT us Govind Olivo MD LAB BLOOD ORDERABLES Final Result [facility] [address] [place] [address], [place] * XR Abdomen 1 VW (06/16/2025 1:33 [...] Jun 16 2025 04:33PM Govind Olivo MD IM[facility] Final Result * (ABNORMAL) Valproic Acid Level (06/15/2025 9:42 PM EDT) Only the most recent of2 resultswithin the time period is included. Valproic Acid Level, Blood 49(L) 50 - 100 ug/mL 06/15/2025 10:29 PM EDT [facility] Blood PERIPHERAL BLOOD SPECIMEN / Unknown Venipuncture / Unknown 06/15/2025 9:42 PM EDT 06/15/2025 9:45 PM EDT us Govind Olivo MD LAB BLOOD ORDERABLES Final Result [facility] [address] [place] [address], * Clozapine Level, Blood (06/15/2025 9:41 PM EDT) Only the most recent of3 resultswithin the time period is included. Norclozapine 88 25 - 400 mcg/L 06/19/2025 3:00 PM EDT [facility] Clozapine 224 mcg/L 06/19/2025 3:00 PM EDT [facility] Comment: The therapeutic response begins to appear at 100 mcg/L. Refractory schizophrenia appears to require a therapeutic concentration of at least 350 mcg/L (trough, at steady state). Toxic range: Greater than 900 mcg/L This test was developed and its analytical performance characteristics have been determined by [facility] [place], [place]. It has not been cleared or approved by the U.S. Food and Drug Administration. This assay has been validated pursuant to the CLIA regulations and is used for clinical purposes. Blood PERIPHERAL BLOOD SPECIMEN / Unknown Venipuncture / Unknown 06/15/2025 9:41 PM EDT 06/15/2025 9:45 PM EDT [facility] 06/19/2025 3:00 PM EDT Performing Organization Information: Site ID: [id number] Name: [facility] Address: [address] [place] [phone] Director: LEONEL RUIZ MD,PHD Govind Olivo MD LAB BLOOD ORDERABLES Final Result [address] [address], * Valproic Acid Level, Free (06/15/2025 9:41 PM EDT) [facility] Valproic Acid, Free 13.7 4.8 - 17.3 mg/L 06/19/2025 3:00 PM EDT [facility] Comment: Nonlinear drug binding properties result in the fraction of free valproic acid increasing as total drug increases. The free valproic acid fraction may range from 5% to 25% for the total drug range of 30-160 mg/L. Blood PERIPHERAL BLOOD SPECIMEN / Unknown Venipuncture / Unknown 06/15/2025 9:41 PM EDT 06/15/2025 9:45 PM EDT [facility] 06/19/2025 3:00 PM EDT Performing Organization Information: Site ID: [id number] Name: [facility] Address: [address] [place] [phone] Director: FIDEL CRAWFORD MD us Govind Olivo MD LAB BLOOD ORDERABLES Final Result [facility] [address] [address], [place] [phone] * (ABNORMAL) CBC (06/15/2025 6:23 AM EDT) Only the most recent of16 resultswithin the time period is included. WBC 8.69 4.00 - 10.00 K/uL 06/15/2025 6:52 AM EDT [facility] RBC 3.83(L) 4.60 - 6.10 M/uL 06/15/2025 6:52 AM EDT [facility] Hemoglobin 11.6(L) 13.7 - 17.5 g/dL 06/15/2025 6:52 AM EDT [facility] Hematocrit 36.2(L) 40.0 - 51.0 % 06/15/2025 6:52 AM EDT [facility] MCV 95 82 - 98 fL 06/15/2025 6:52 AM EDT [facility] MCH 30.3 26.0 - 32.0 pg 06/15/2025 6:52 AM EDT [facility] MCHC 32.0 32.0 - 37.0 g/dL 06/15/2025 6:52 AM EDT [facility] RDW 14.5 10.5 - 15.5 % 06/15/2025 6:52 AM EDT [facility] RDW-SD 49.3(H) 35.1 - 46.3 fL 06/15/2025 6:52 AM EDT [facility] Platelet Count 256 150 - 400 K/uL 06/15/2025 6:52 AM EDT [facility] Nucleated RBC 0 <=0 #/100 WBC 06/15/2025 6:52 AM EDT [facility] Blood PERIPHERAL BLOOD SPECIMEN / Unknown Venipuncture / Unknown 06/15/2025 6:23 AM EDT 06/15/2025 6:36 AM EDT Urban Mondragon MD LAB BLOOD ORDERABLES Final Resul t Performing Organization Address City/[facility] Co de Phone Number [facility] [address] [place] [address], [place] * Phosphorus (06/15/2025 6:22 AM EDT) Only the most recent of23 resultswithin the time period is included. Phosphorus 3.4 2.7 - 4.5 mg/dL 06/15/2025 7:14 AM EDT [facility] Blood PERIPHERAL BLOOD SPECIMEN / Unknown Venipuncture / Unknown 06/15/2025 6:22 AM EDT 06/15/2025 6:36 AM EDT Urban Mondragon MD LAB BLOOD ORDERABLES Final Resul t Performing Organization Address [facility] de Phone Number [facility] [address] [place] [address], [place] * Magnesium (06/15/2025 6:22 AM EDT) Only the most recent of23 resultswithin the time period is included. Magnesium, Blood 2.1 1.6 - 2.6 mg/dL 06/15/2025 7:14 AM EDT [facility] Blood PERIPHERAL BLOOD SPECIMEN / Unknown Venipuncture / Unknown 06/15/2025 6:22 AM EDT 06/15/2025 6:36 AM EDT Urban Mondragon MD LAB BLOOD ORDERABLES Final Resul t Performing Organization Address City/[facility] Co de Phone Number [facility] [address] [place] [address], [place] * (ABNORMAL) Hepatic Function Panel (06/15/2025 6:22 AM EDT) Only the most recent of17 resultswithin the time period is included. Total Protein 5.9(L) 6.4 - 8.3 g/dL 06/15/2025 7:32 AM EDT [facility] Albumin, Blood 2.9(L) 3.5 - 5.2 g/dL 06/15/2025 7:32 AM EDT [facility] Globulin Result 3.0 2.0 - 4.0 g/dL 06/15/2025 7:32 AM EDT [facility] Total Bilirubin 0.2 0.0 - 1.5 mg/dL 06/15/2025 7:32 AM EDT [facility] Direct Bilirubin <0.1 0.0 - 0.3 mg/dL 06/15/2025 7:32 AM EDT [facility] Alkaline Phosphatase 117 40 - 130 U/L 06/15/2025 7:32 AM EDT [facility] AST (SGOT) 22 0 - 40 U/L 06/15/2025 7:32 AM EDT [facility] ALT (SGPT) 14 0 - 40 U/L 06/15/2025 7:32 AM EDT [facility] Blood PERIPHERAL BLOOD SPECIMEN / Unknown Venipuncture / Unknown 06/15/2025 6:22 AM EDT 06/15/2025 6:36 AM EDT us Urban Mondragon MD LAB BLOOD ORDERABLES Final Resul t [facility] [address] [place] [address], * (ABNORMAL) Basic Metabolic Panel (06/15/2025 6:22 AM EDT) Only the most recent of24 resultswithin the time period is included. Sodium 142 135 - 147 mmol/L 06/15/2025 7:14 AM EDT [facility] Potassium 4.2 3.5 - 5.4 mmol/L 06/15/2025 7:14 AM EDT [facility] Chloride 104 96 - 108 mmol/L 06/15/2025 7:14 AM EDT [facility] Total CO2/Bicarbonat e 29 22 - 32 mmol/L 06/15/2025 7:14 AM EDT [facility] Anion Gap 9(L) 10 - 18 mmol/L 06/15/2025 7:14 AM EDT [facility] BUN 28(H) 6 - 20 mg/dL 06/15/2025 7:14 AM EDT [facility] Creatinine, Blood 0.90 0.50 - 1.20 mg/dL 06/15/2025 7:14 AM EDT [facility] Glucose, Blood 109(H) 70 - 100 mg/dL 06/15/2025 7:14 AM EDT [facility] Calcium 8.9 8.4 - 10.3 mg/dL 06/15/2025 7:14 AM EDT [facility] Blood PERIPHERAL BLOOD SPECIMEN / Unknown Venipuncture / Unknown 06/15/2025 6:22 AM EDT 06/15/2025 6:36 AM EDT us Urban Mondragon MD LAB BLOOD ORDERABLES Final Resul t Performing Organization Address City/[facility]/ZIP Co de Phone Number [facility] [address] [place] [address], [place] * (ABNORMAL) POCT Glucose (06/11/2025 1:54 PM EDT) Only the most recent of52 resultswithin the time period is included. Glucose, POC 118(H) 70 - 100 mg/dL 06/11/2025 2:05 PM EDT [facility] Comment: @Serial Tdvjac=[id number] @Principal Technologist TQ=[id number] Blood 06/11/2025 1:54 PM EDT 06/11/2025 2:05 PM EDT us Feliciano Choi MD POCT ORDERABLES - DEVICE Patricia l Result Performing Organization Address City/[facility]/ZIP Co de Phone Number [facility] [address] [place] [address], [place] * [place] Modified Barium Swallow Incl [...] a standalone note by the Speech-Language Pathologist (Gokul Abbasi, Speech Pathology). BY ELECTRONICALLY SIGNING THIS REPORT, [...] in astandalone note by the Speech-Language Pathologist (Gokul Abbasi, SpeechPathology). BY ELECTRONICALLY SIGNING THIS REPORT, I [...] - 10.00 K/uL 06/10/2025 9:52 AM EDT [facility] Neutrophil 85.5(H) 34.0 - 71.0 % 06/10/2025 9:52 AM EDT [facility] Lymphocyte 7.7(L) 19.0 - 53.0 % 06/10/2025 9:52 AM EDT [facility] Monocyte 5.6 5.0 - 13.0 % 06/10/2025 9:52 AM EDT [facility] Eosinophil 0.0(L) 1.0 - 7.0 % 06/10/2025 9:52 AM EDT [facility] Basophil 0.4 0.0 - 1.0 % 06/10/2025 9:52 AM EDT [facility] Nucleated RBC 0 <=0 #/100 WBC 06/10/2025 9:52 AM T [facility] Absolute Neutrophil Count 16.18(H) 1.60 - 6.10 K/uL 06/10/2025 9:52 AM EDT [facility] Absolute Lymphocyte Count 1.45 1.20 - 3.70 K/uL 06/10/2025 9:52 AM EDT [facility] Absolute Monocyte Count 1.06(H) 0.20 - 0.80 K/uL 06/10/2025 9:52 AM EDT [facility] Absolute Eosinophil Count 0.00(L) 0.04 - 0.54 K/uL 06/10/2025 9:52 AM EDT [facility] Absolute Basophil Count 0.07 0.01 - 0.08 K/uL 06/10/2025 9:52 AM EDT [facility] Immature Granulocyte ([place], Myelo, Promyelocyte) 0.8(H) 0.0 - 0.6 % 06/10/2025 9:52 AM EDT [facility] Absolute Immature Granulocyte ([place], Myelo, Promyelocyte) 0.16(H) 0.00 - 0.09 K/uL 06/10/2025 9:52 AM EDT [facility] Blood PERIPHERAL BLOOD SPECIMEN / Unknown Venipuncture / Unknown 06/10/2025 7:20 AM EDT 06/10/2025 7:30 AM EDT us Feliciano Choi MD LAB BLOOD ORDERABLES Final Re sult [facility] [address] [place] [address], [place] * (ABNORMAL) Manual Diff and Morph (06/02/2025 5:41 AM EDT) Only the most recent of5 resultswithin the time period is included. Neutrophil 73(H) 34 - 71 % 06/02/2025 8:02 AM EDT [facility] Lymphocyte 12(L) 19 - 53 % 06/02/2025 8:02 AM EDT [facility] Monocyte 7 5 - 13 % 06/02/2025 8:02 AM EDT [facility] Eosinophil 0(L) 1 - 7 % 06/02/2025 8:02 AM EDT [facility] Basophil 0 0 - 1 % 06/02/2025 8:02 AM EDT [facility] Band 4 0 - 5 % 06/02/2025 8:02 AM EDT [facility] Metamyelocyte 2(H) <=0 % 06/02/2025 8:02 AM EDT [facility] Myelocyte 2(H) <=0 % 06/02/2025 8:02 AM EDT [facility] Absolute Neutrophil Count 15.65(H) 1.60 - 6.10 K/uL 06/02/2025 8:02 AM EDT [facility] Absolute Lymphocyte Count 2.44 1.20 - 3.70 K/uL 06/02/2025 8:02 AM EDT [facility] Absolute Monocyte Count 1.42(H) 0.20 - 0.80 K/uL 06/02/2025 8:02 AM EDT [facility] Absolute Eosinophil Count 0.00(L) 0.04 - 0.54 K/uL 06/02/2025 8:02 AM EDT [facility] Absolute Basophil Count 0.00(L) 0.01 - 0.08 K/uL 06/02/2025 8:02 AM EDT [facility] Platelet Est Normal Normal 06/02/2025 8:02 AM EDT [facility] ANISOCYTOSIS 1+ 06/02/2025 8:02 AM EDT [facility] Microcytosis 1+ 06/02/2025 8:02 AM EDT [facility] Poikilocytosis 1+ 06/02/2025 8:02 AM EDT [facility] ACANTHOCYTES 1+ 06/02/2025 8:02 AM EDT [facility] OVALOCYTES 1+ 06/02/2025 8:02 AM EDT [facility] SCHISTOCYTES 1+ 06/02/2025 8:02 AM EDT [facility] SPHEROCYTES 1+ 06/02/2025 8:02 AM EDT [facility] TEAR DROP CELLS 1+ 8:02 AM EDT [facility] Total Cells Counted 100 06/02/2025 8:02 AM EDT [facility] Blood PERIPHERAL BLOOD SPECIMEN / Unknown Venipuncture / Unknown 06/02/2025 5:41 AM EDT 06/02/2025 5:45 AM EDT us Rabia Velasco MD LAB BLOOD ORDERABLES Final Resul t [facility] [address] [place] [address], [place] * XR Abdomen Portable (05/29/2025 11:22 [...] of2 resultswithin the time period is included. Platelet Est Normal Normal 05/29/2025 8:13 AM EDT [facility] ANISOCYTOSIS 1+ 05/29/2025 8:13 AM EDT [facility] Microcytosis 1+ 05/29/2025 8:13 AM EDT [facility] POLYCHROMASIA 1+ 05/29/2025 8:13 AM EDT [facility] Poikilocytosis 1+ 05/29/2025 8:13 AM EDT [facility] OVALOCYTES 1+ 05/29/2025 8:13 AM EDT [facility] SPHEROCYTES 1+ 05/29/2025 8:13 AM EDT [facility] TEAR DROP CELLS 1+ 8:13 AM EDT [facility] ACANTHOCYTES 1+ 05/29/2025 8:13 AM EDT [facility] Blood PERIPHERAL BLOOD SPECIMEN / Unknown Venipuncture / Unknown 05/29/2025 6:20 AM EDT 05/29/2025 6:29 AM EDT Rabia Velasco MD LAB BLOOD ORDERABLES Final Resul t Performing Organization Address City/[facility]/ZIP Co de Phone Number [facility] [address] [place] [address], * (ABNORMAL) C-Reactive Protein (05/28/2025 5:53 AM EDT) Only the most recent of2 resultswithin the time period is included. C-Reactive Protein (CRP) >300.0(H) 0.0 - 5.0 mg/L 05/28/2025 12:39 PM EDT [facility] Blood PERIPHERAL BLOOD SPECIMEN / Unknown Venipuncture / Unknown 05/28/2025 5:53 AM EDT 05/28/2025 6:01 AM EDT us Rabia Velasco MD LAB BLOOD ORDERABLES Final Resul t [facility] [address] [place] [address], * CT Angiogram Chest PE : Arteriogram [...] May 28 2025 01:10PM Rabia Velasco MD IM CT ORDERABLES Final Result * CT Head [...] Correa MD, electronically signed on 2025 10:34PM Rabia Velasco MD IMG CT ORDERABLES Final Result * Lactic Acid with 3 Hour Reflex (2025 8:28 PM EDT) Only the most recent of2 resultswithin the time period is included. Lactic Acid 1.9 0.5 - 2.0 mmol/L 2025 8:34 PM EDT [facility] Blood PERIPHERAL BLOOD SPECIMEN / Unknown Venipuncture / Unknown 2025 8:28 PM EDT 2025 8:31 PM EDT us Rabia Velasco MD LAB BLOOD ORDERABLES Final Resul t [facility] [address] [place] [address], * (ABNORMAL) Blood Gas, Venous (2025 8:28 PM EDT) Only the most recent of2 resultswithin the time period is included. pH, Venous 7.47(H) 7.35 - 7.45 2025 8:35 PM EDT [facility] pCO2, Venous 41 35 - 45 mmHg 2025 8:35 PM EDT [facility] pO2, Venous 82 80 - 105 mmHg 2025 8:35 PM EDT [facility] HCO3, Venous 30 21 - 30 mmol/L 2025 8:35 PM EDT [facility] Carboxyhemoglo bin, VBG 1.6(H) 0.5 - 1.5 % 2025 8:35 PM EDT [facility] Methemoglobin, VBG 1.0(H) 0.2 - 0.6 % 2025 8:35 PM EDT [facility] Blood Venipuncture / Unknown 2025 8:28 PM EDT 2025 8:31 PM EDT us Rabia Velasco MD LAB BLOOD ORDERABLES Final Resul t [facility] [address] [place] [address], * (ABNORMAL) Comprehensive Metabolic Panel (2025 8:23 PM EDT) Only the most recent of3 resultswithin the time period is included. Sodium 145 135 - 147 mmol/L 2025 9:04 PM EDT [facility] Potassium 4.0 3.5 - 5.4 mmol/L 2025 9:04 PM EDT [facility] Chloride 106 96 - 108 mmol/L 2025 9:04 PM EDT [facility] Total CO2/Bicarbonate 27 22 - 32 mmol/L 2025 9:04 PM EDT [facility] Anion Gap 12 10 - 18 mmol/L 2025 9:04 PM EDT [facility] BUN 36(H) 6 - 20 mg/dL 2025 9:04 PM EDT [facility] Creatinine, Blood 0.90 0.50 - 1.20 mg/dL 2025 9:04 PM EDT [facility] Glucose, Blood 168(H) 70 - 100 mg/dL 2025 9:04 PM EDT [facility] Calcium 9.1 8.4 - 10.3 mg/dL 2025 9:04 PM EDT [facility] Total Protein 6.5 6.4 - 8.3 g/dL 2025 9:04 PM EDT [facility] Albumin, Blood 2.9(L) 3.5 - 5.2 g/dL 2025 9:04 PM EDT [facility] Globulin Result 3.6 2.0 - 4.0 g/dL 2025 9:04 PM EDT [facility] AST (SGOT) 15 0 - 40 U/L 2025 9:04 PM EDT [facility] ALT (SGPT) 8 0 - 40 U/L 2025 9:04 PM EDT [facility] Alkaline Phosphatase 125 40 - 130 U/L 2025 9:04 PM EDT [facility] Total Bilirubin 0.2 0.0 - 1.5 mg/dL 2025 9:04 PM EDT [facility] Blood PERIPHERAL BLOOD SPECIMEN / Unknown Venipuncture / Unknown 2025 8:23 PM EDT 2025 8:27 PM EDT us Rabia Velasco MD LAB BLOOD ORDERABLES Final Resul t [facility] [address] [place] [address], * Culture, Respiratory (Incl Gram) (2025 5:55 PM EDT) Respiratory Culture Heavy growth commensal respiratory nica STEPHEN 05/31/2025 2:23 PM EDT [facility] Smear,Gram Stain >25 PMNs and <10 epithelial cells/100X field 05/31/2025 2:23 PM EDT [facility] Smear,Gram Stain 4+ Multiple Organisms Present Consistent with Oropharyngeal Nica 05/31/2025 2:23 PM EDT [facility] Respiratory SPUTUM SPECIMEN OBTAINED BY SPUTUM INDUCTION / Unknown Collection / Unknown 2025 5:55 PM EDT 2025 6:16 PM EDT us Rabia Velasco MD MICROBIOLOGY - GENERAL ORDERABLE S Final Result [facility] [address] [place] [address], [place] * Nasal MRSA/SA By PCR (2025 3:35 PM EDT) MRSA PCR Negative Negative 05/28/2025 10:52 AM EDT [facility] S. aureus PCR Negative Negative 05/28/2025 10:52 AM EDT [facility] Swab BOTH ANTERIOR NARES / Unknown 2025 3:35 PM EDT 2025 4:00 PM EDT Narrative [facility] - 05/28/2025 10:52 AM EDT Test performed by GeneXpert real-time PCR. us Rabia Velasco MD MICROBIOLOGY - GENERAL ORDERABLE S Final Result [facility] [address] [place] [address], [place] * XR Chest 1 VW Portable [...] Hold Received 05/25/2025 8:01 AM EDT [facility] AP Urine MID-STREAM URINE SPECIMEN / Unknown Collection / Unknown 05/25/2025 5:11 AM EDT 05/25/2025 5:15 AM EDT us Rabia Velasco MD URINE ORDERABLES Final Result [facility] AP [address] [place] [address], * (ABNORMAL) Urinalysis with Reflex to Urine Culture (05/25/2025 5:11 AM EDT) Only the most recent of3 resultswithin the time period is included. Color, Urine Yellow Yellow, Colorless, Straw 05/25/2025 5:41 AM EDT [facility] Clarity, Urine Clear Clear 05/25/2025 5:41 AM EDT [facility] pH, Urine 7.5 5.0 - 8.0 05/25/2025 5:41 AM EDT [facility] Protein, Urine 50 mg/dL(A) Negative 05/25/2025 5:41 AM EDT [facility] Glucose, Urine Negative Negative 05/25/2025 5:41 AM EDT [facility] Ketone, Urine Negative Negative 05/25/2025 5:41 AM EDT [facility] Bilirubin, Urine Negative Negative 05/25/2025 5:41 AM EDT [facility] Urobilinogen, Urine Normal 0.2-1.0 mg/dL 05/25/2025 5:41 AM EDT [facility] Blood, Urine Negative Negative 05/25/2025 5:41 AM EDT [facility] Leukocyte Esterase, Urine Negative Negative 05/25/2025 5:41 AM EDT [facility] Nitrite, Urine Negative Negative 05/25/2025 5:41 AM EDT [facility] Specific Pingree, Urine 1.029 1.001 - 1.050 05/25/2025 5:41 AM EDT [facility] White Blood Cells, Urine <1 0 - 5 /hpf 05/25/2025 5:41 AM EDT [facility] Red Blood Cells, Urine 2 0 - 2 /hpf 05/25/2025 5:41 AM EDT [facility] Urine MID-STREAM URINE SPECIMEN / Unknown Collection / Unknown 05/25/2025 5:11 AM EDT 05/25/2025 5:15 AM EDT Rabia Velasco MD URINE ORDERABLES Final Result [facility] [address] [place] [address], * Culture, Blood (05/24/2025 6:58 PM EDT) Culture No growth after 5 days STEPHEN 05/29/2025 9:02 PM EDT [facility] Blood PERIPHERAL BLOOD SPECIMEN / Unknown Venipuncture / Unknown 05/24/2025 6:58 PM EDT 05/24/2025 7:02 PM EDT us Rabia Velasco MD MICROBIOLOGY - GENERAL ORDERABLE S Final Result [facility] [address] [place] [address], [place] * (ABNORMAL) Coronavirus SARS-CoV-2, Influenza A/B and RSV (05/24/2025 10:28 AM EDT) Only the most recent of2 resultswithin the time period is included. Coronavirus SARS-CoV-2 Positive(A) Negative 05/24/2025 11:10 AM EDT [facility] Influenza A Negative Not Detected by PCR 05/24/2025 11:10 AM EDT [facility] Influenza B Negative Not Detected by PCR 05/24/2025 11:10 AM EDT [facility] RSV by PCR Negative Not Detected by PCR 05/24/2025 11:10 AM EDT [facility] Respiratory SWAB OF INTERNAL NOSE / Unknown Collection / Unknown 05/24/2025 10:28 AM EDT 05/24/2025 10:29 AM EDT Narrative [facility] - 05/24/2025 11:10 AM EDT Test performed by GeneXpert real-time PCR. us Rabia Velasco MD BODY FLUIDS AND STOOLS ORDERABLE S Final Result Performing Organization Address City/[facility]/ZIP Co de Phone Number [facility] [address] [place] [address], [place] * IR G Tube Rescue (05/12/2025 [...] PM EDT [facility] Influenza A, PCR Negative Negative 05/07/20 6:15 PM EDT [facility] Influenza B, PCR Negative Negative 05/07/20 6:15 PM EDT [facility] RSV by PCR Negative Negative 05/07/2025 6:15 PM EDT [facility] Respiratory SWAB OF INTERNAL NOSE / Unknown Collection / Unknown 05/07/2025 12:20 PM EDT 05/07/2025 12:33 PM EDT Narrative [facility] - 05/07/2025 6:15 PM EDT Test performed with Hanny fritz Resp-4-Plex PCR assay, which has received emergency use authorization (EUA) by the U.S.Food and Drug Administration. Test performance verified by [facility] [address], [place], [place]. Dr. Dunia Adames MD. CLIA [id number], CAP [id number] . us Mohinder Johnson MD BODY FLUIDS AND STOOLS ORDERAB LES Final Result [facility] [address] [place] [address], [place] [phone] * EEG 24 Hour Continuous Video EEG (LTM) (05/01/2025 6:30 AM EDT) Anatomical Region Laterality Modality EEG Impressions 05/04/2025 9:47 AM EDT Abnormal EEG due to - intermittent background 5-7Hz theta slowing while awake Note on seizure risk / 9TVAPR5C scores: Interpretation of scores the risk of [...] <5%. Assessment of the Validity of the 1LESMA9X Score for Inpatient Seizure Risk Prediction. DEB [...] EPILEPTIFORM DISCHARGES: None EVENTS: None ECG: Unremarkable 1DZVNN9D score (on day 1 of EEG): 0 us Mildred Srinivasan MD NEUROLOGY ORDERABLES Final Resu lt * EEG 24 Hour Continuous Video EEG (LTM) (04/30/2025 2:04 PM EDT) Anatomical Region Laterality Modality EEG Impressions 05/01/2025 9:40 AM EDT Abnormal EEG due to - intermittent background 5-7Hz theta slowing while awake Note on seizure risk / 3MLEIK4V scores: Interpretation of scores the risk of [...] <5%. Assessment of the Validity of the 7PFEKF3H Score for Inpatient Seizure Risk Prediction. DEB [...] EPILEPTIFORM DISCHARGES: None EVENTS: None ECG: Unremarkable 3LYJJQ9X score (on day 1 of EEG): 0 us Mildred Srinivasan MD NEUROLOGY ORDERABLES Final Resu lt * (ABNORMAL) Urinalysis with Sediment (04/30/2025 12:21 PM EDT) Color, Urine Yellow Yellow, Colorless, Straw 04/30/2025 12:40 PM T [facility] Clarity, Urine Hazy(A) Clear 04/30/2025 12:40 PM T [facility] pH, Urine 7.0 5.0 - 8.0 04/30/2025 12:40 PM T [facility] Protein, Urine Negative Negative 04/30/2025 12:40 PM T [facility] Glucose, Urine Negative Negative 04/30/2025 12:40 PM T [facility] Ketone, Urine Negative Negative 04/30/2025 12:40 PM EDT [facility] Bilirubin, Urine Negative Negative 04/30/2025 12:40 PM T [facility] Urobilinogen, Urine Normal 0.2-1.0 mg/dL 04/30/2025 12:40 PM T [facility] Blood, Urine Negative Negative 04/30/2025 12:40 PM T [facility] Leukocyte Esterase, Urine Negative Negative 04/30/2025 12:40 PM T [facility] Nitrite, Urine Negative Negative 04/30/2025 12:40 PM T [facility] Specific Pingree, Urine 1.016 1.001 - 1.050 04/30/2025 12:40 PM T [facility] White Blood Cells, Urine <1 0 - 5 /hpf 04/30/2025 12:40 PM T [facility] Red Blood Cells, Urine <1 0 - 2 /hpf 04/30/2025 12:40 PM T [facility] Urine MID-STREAM URINE SPECIMEN / Unknown Collection / Unknown 04/30/2025 12:21 PM EDT 04/30/2025 12:35 PM EDT Mildred Srinivasan MD URINE ORDERABLES Final Result Performing Organization Address [facility] Co de Phone Number [facility] [address] [place] [address], [place] * (ABNORMAL) D-dimer (04/30/2025 10:14 AM EDT) D-Dimer 605(H) <=500 ng/mL FEU 04/30/2025 10:37 AM EDT [facility] Comment:In ambulatory patien ts with low pre-test probability (Wells Criteria); D-Dimer <500 can be used to exclude venous thomboembolic disease. Blood PERIPHERAL BLOOD SPECIMEN / Unknown Venipuncture / Unknown 04/30/2025 10:14 AM EDT 04/30/2025 10:20 AM EDT Mildred Srinivasan MD LAB BLOOD ORDERABLES Final Resu lt Performing Organization Address [facility] Co de Phone Number [facility] [address] [place] [address], [place] * Lactate Dehydrogenase, Blood (04/30/2025 10:10 AM EDT) [facility] Lactate Dehydrogenase (LDH) 192 94 - 250 U/L 04/30/2025 11:07 AM EDT [facility] Blood PERIPHERAL BLOOD SPECIMEN / Unknown Venipuncture / Unknown 04/30/2025 10:10 AM EDT 04/30/2025 10:20 AM EDT Mildred Srinivasan MD LAB BLOOD ORDERABLES Final Resu lt Performing Organization Address City/[facility] Co de Phone Number [facility] [address] [place] [address], [place] * (ABNORMAL) CK (Creatine Kinase) (04/30/2025 10:10 AM EDT) Only the most recent of3 resultswithin the time period is included. Pathologist [facility] [place] Creatine Kinase Total (CK) 35(L) 47 - 322 U/L 04/30/2025 11:07 AM EDT [facility] Blood PERIPHERAL BLOOD SPECIMEN / Unknown Venipuncture / Unknown 04/30/2025 10:10 AM EDT 04/30/2025 10:20 AM EDT us Mildred Srinivasan MD LAB BLOOD ORDERABLES Final Resu lt [facility] [address] [place] [address], [place] * EEG 24 Hour Continuous Video EEG (LTM) (04/24/2025 9:35 AM EDT) Anatomical Region Laterality Modality EEG Impressions 04/25/2025 12:15 PM EDT Normal EEG in the awake, drowsy, and asleep states. Note on seizure risk / 1KEGUE2O scores: Interpretation of scores the risk of [...] <5%. Assessment of the Validity of the 7NSVZG0H Score for Inpatient Seizure Risk Prediction. DEB [...] with rates of 80 to 100 bpm. 3GISRK4X score (on day 1 of EEG): 1 [...] Ojeda MD Note on seizure risk / 5FHSBX5R scores: Interpretation of scores the risk of [...] <5%. [Assessment of the Validity of the 8CNORS3A Score for Inpatient Seizure Risk Prediction. DEB Neurol. 2020 Jan 1;77(4):500-507.] Narrative 04/23/2025 2:52 PM EDT Table formatting from the original result was not included. CLINICAL NEUROPHYSIOLOGY LAB Department of Neurology [address] [place] [address] [address] ; [phone] Name: Carter Raymundo : 1955 Age: 69 [...] discharges. SEIZURES: There were no electrographic seizures. OYSTER SHIPPER: Showed a generally regular rhythm, often with rates of 80 to 100 bpm. EVENTS: There were no pushbutton activations. 8HGMXG0J score (Day1): 0 us Bonifacio Agudelo MD [...] Ojeda MD Note on seizure risk / 9OPPWY4U scores: Interpretation of scores the risk of [...] <5%. [Assessment of the Validity of the 7DMJEA3D Score for Inpatient Seizure Risk Prediction. DEB Neurol. 2020 Jan 1;77(4):500-507.] Narrative 04/23/2025 1:07 PM EDT Table formatting from the original result was not included. CLINICAL NEUROPHYSIOLOGY LAB Department of Neurology [address] [place] [address] ; [phone] Name: Carter Raymundo : 1955 Age: 69 [...] discharges. SEIZURES: There were no electrographic seizures. OYSTER SHIPPER: Showed a generally regular rhythm, often with a rate of about 100 bpm. EVENTS: There were no pushbutton activations. 8TSGJR7L score (Day1): 0 us Bonifacio Agudelo MD NEUROLOGY ORDERABLES Final Resul t * Prolactin (04/22/2025 12:02 PM EDT) Pathologist [facility] [place] Prolactin, Blood 14.0 4.0 - 15.0 ng/mL 04/22/2025 3:28 PM EDT [facility] Comment:Measured by Desiree El ecsys (ECLIA) version 2 which is largely unaffected by macroprolactin. Patient results determined by different manufacturers or methods may not be comparable. Blood PERIPHERAL BLOOD SPECIMEN / Unknown Venipuncture / Unknown 04/22/2025 12:02 PM EDT 04/22/2025 12:23 PM EDT us Bonifacio Agudelo MD LAB BLOOD ORDERABLES Final Resul t [facility] [address] [place] [address], * Lactic Acid (04/22/2025 11:21 AM EDT) Lactic Acid 2.0 0.5 - 2.0 mmol/L 04/22/2025 11:42 AM EDT [facility] Blood Venipuncture / Unknown 04/22/2025 11:21 AM EDT 04/22/2025 11:24 AM EDT us Bonifacio Agudelo MD LAB BLOOD ORDERABLES Final Resul t [facility] [address] [place] [address], [place] * Vitamin D, 25-OH (04/17/2025 7:40 AM EDT) `Vitamin D 25-OH Level 38 30 - 60 ng/mL 04/17/2025 3:33 PM EDT [facility] Blood PERIPHERAL BLOOD SPECIMEN / Unknown Venipuncture / Unknown 04/17/2025 7:40 AM EDT 04/17/2025 7:53 AM EDT us Bonifacio Agudelo MD LAB BLOOD ORDERABLES Final Resul t [facility] [address] [place] [address], [place] * XR Chest 2 VW (04/16/2025 [...] Drug Screen, Urine (04/16/2025 6:54 AM EDT) [facility] Amphetamines Screen, Urine Presumptive Negative Presumptive Negative 04/16/2025 7:58 AM EDT [facility] Comment:[facility] amphetamine cu t-off is 1000 ng/mL. Barbiturates Screen, Urine Presumptive Negative Presumptive Negative 04/16/2025 7:58 AM EDT [facility] Comment:[facility] Barbiturate cu t-off of 200 ng/mL. Benzodiazepine Screen, Urine Presumptive Negative Presumptive Negative 04/16/2025 7:58 AM EDT [facility] Comment: [facility] Benzodiazepine cut-off is 300 ng/mL BENZODIAZEPINE IMMUNOASSAY SCREEN DOES NOT DETECT SOME DRUGS, INCLUDING LORAZEPAM, CLONAZEPAM, AND FLUNITRAZEPAM Cannabinoids Screen, Urine Presumptive Negative Presumptive Negative 04/16/2025 7:58 AM EDT [facility] Comment:[facility] Cannabinoids c ut-off is 50 ng/mL. Cocaine Metabolite Screen, Urine Presumptive Negative Presumptive Negative 04/16/2025 7:58 AM EDT [facility] Comment:[facility] Cocaine cut-of f is 300 ng/mL. Fentanyl Screen, Urine Presumptive Negative Presumptive Negative 04/16/2025 7:58 AM EDT [facility] Comment: [facility] Fentanyl cut-off 5.0 ng/mL. FENTANYL ASSAY DETECTS FENTANYL AND NORFENTANYL. FALSE POSITIVE RENTANYL RESULTS MAY OCCUR IN PATIENTS TAKING RISPERIDONE, TRAZADONE, AND LABETALOL. Methadone Screen, Urine Presumptive Negative Presumptive Negative 04/16/2025 7:58 AM EDT [facility] Comment: [facility] Methadone cut-off is 300 ng/mL. METHADONE ASSAY DETECTS METHADONE (NOT OTHER OPIATES/OPIOIDS; QUETIAPINE(SEROQUEL) MAY CAUSE A FALSE POSITIVE RESULT. Opiates Screen, Urine Presumptive Negative Presumptive Negative 04/16/2025 7:58 AM EDT [facility] Comment: [facility] Opiate cut-off is 300 ng/mL. OPIATE ASSAY DOES NOT RELIABLY DETECT SYNTHETIC OPIOIDS;SUCH METHADONE, OXYCODONE, FENTANYL, BUPRENORPHINE, TRAMADOL,;NALOXONE, MEPERIDINE. SEE ONLINE LAB MANUAL FOR DETAILS Oxycodone Screen, Urine Presumptive Negative Presumptive Negative 04/16/2025 7:58 AM EDT [facility] Comment:[facility] Oxycodone cut- off is 100 ng/mL. Urine URINE SPECIMEN / Unknown Collection / Unknown 04/16/2025 6:54 AM EDT 04/16/2025 7:17 AM EDT us Dane Morris MD URINE ORDERABLES Fin al Result Performing Organization Address [facility] de Phone Number [facility] [address] [place] [address], [place] * (ABNORMAL) hs-Troponin T, 1hr (04/15/2025 11:33 PM EDT) Troponin T HS 83(H) <=19 ng/L 04/16/2025 12:19 AM EDT [facility] Comment: hs-cTnT<=19 ng/L in 99% of healthy individuals. hs-cTnT values of 30, 52, 100 and 1000 ng/L correspond to approximately CHARLIE Gen 4 of 0.01, 0.03, 0.1 and 1 ng/mL Blood PERIPHERAL BLOOD SPECIMEN / Unknown Venipuncture / Unknown 04/15/2025 11:33 PM EDT 04/15/2025 11:38 PM EDT us Dane Morris MD LAB BLOOD ORDERABLES Final Result Performing Organization Address [facility] Co de Phone Number [facility] [address] [place] [address], [place] * BB Retype (04/15/2025 11:33 PM EDT) BB RETYPE Received 04/16/2025 8:01 AM EDT [facility] BLOOD [facility] Blood Venipuncture / Unknown 04/15/2025 11:33 PM EDT 04/15/2025 11:48 PM EDT us Dane Morris MD BLOOD BANK TEST ORDE RABLES Final Result Performing Organization Address [facility] Co de Phone Number [facility]OD BANK [address] [place] [address], [place] * Ammonia (04/15/2025 11:33 PM EDT) Ammonia umol/L 11 10 - 60 umol/L 04/16/2025 12:21 AM EDT [facility] Blood PERIPHERAL BLOOD SPECIMEN / Unknown Venipuncture / Unknown 04/15/2025 11:33 PM EDT 04/15/2025 11:37 PM EDT Dane Morris MD LAB BLOOD ORDERABLES Final Result Performing Organization Address [facility] Co de Phone Number [facility] [address] [place] [address], [place] * MRI Brain Without Contrast (04/15/2025 11:19 PM EDT) Anatomical Region Laterality Modality Head Magnetic Resonan ce 04/15/2025 11:4 7 PM EDT Impressions 04/16/2025 11:44 AM EDT No acute intracranial abnormality. Specifically, no acute or recent infarction. WET READ: WET READ:~No acute intracranial abnormality. Angel Luis Tompkins [phone]. BY ELECTRONICALLY SIGNING THIS REPORT, I THE ATTENDING PHYSICIAN ATTEST THAT I HAVE REVIEWED THE IMAGES FOR THE ABOVE PROCEDURE(S) AND AGREE WITH THE FINDINGS DOCUMENTED. MD Deny Riley MD, electronically signed on Apr 16 2025 11:44AM Narrative 04/16/2025 11:44 AM EDT EXAMINATION: MR BRAIN WO CONTRAST. [id number] MR HEAD. INDICATION: Stroke protocol. DR. DANE [...] - 04/16/2025 EXAMINATION: MR BRAIN WO CONTRAST. [id number] MR HEAD. INDICATION: Stroke protocol. DR. DANE [...] READ:~No acute intracranial abnormality. Angel Luis Tompkins [phone] [id number]. BY ELECTRONICALLY SIGNING THIS REPORT, I THE ATTENDING PHYSICIAN ATTESTTHAT I HAVE REVIEWED THE IMAGES FOR THE ABOVE PROCEDURE(S) AND AGREE WITHTHE FINDINGS DOCUMENTED. MD Deny Riley MD, electronically signed on Apr 16 2025 11:44AM us Dane Morris MD [facility] MRI ORDERABLES F inal Result * (ABNORMAL) hs-Troponin T (reflex 1hr, 3hr) (04/15/2025 9:18 PM EDT) Troponin T HS 85(H) <=19 ng/L 04/15/2025 10:59 PM EDT [facility] Comment: hs-cTnT<=19 ng/L in 99% of healthy individuals. hs-cTnT values of 30, 52, 100 and 1000 ng/L correspond to approximately CHARLIE Gen 4 of 0.01, 0.03, 0.1 and 1 ng/mL Blood PERIPHERAL BLOOD SPECIMEN / Unknown Venipuncture / Unknown 04/15/2025 9:18 PM EDT 04/15/2025 10:29 PM EDT Dane Morris MD LAB BLOOD ORDERABLES Final Result Performing Organization Address [facility] de Phone Number [facility] [address] [place] [address], * (ABNORMAL) Toxicology Screen, Blood (04/15/2025 9:18 PM EDT) Acetaminophen Result,Blood <5 <5 =Not Detected ug/mL 04/15/2025 11:37 PM EDT [facility] Alcohol <10 <10 = Not Detected mg/dL 04/15/2025 11:37 PM EDT [facility] Salicylate Level, Blood <1(L) <4 = Not Detected mg/dL 04/15/2025 11:37 PM EDT [facility] Blood PERIPHERAL BLOOD SPECIMEN / Unknown Venipuncture / Unknown 04/15/2025 9:18 PM EDT 04/15/2025 10:29 PM EDT Dane Morris MD LAB BLOOD ORDERABLES Final Result Performing Organization Address [facility] de Phone Number [facility] [address] [place] [address], [place] * CT Angiogram Head Neck Code [...] large vascular territory infarction or hemorrhage. ~~Patent wainwright of [place] without evidence of substantial stenosis or occlusion.~~Patent bilateral cervical carotid and vertebral arteries without evidence of stenosis >70% by NASCET criteria, occlusion, or dissection .~~Full read pending by neuroradiology. ~ Valentin Mena [phone] [id number]: BY ELECTRONICALLY SIGNING THIS REPORT, I THE ATTENDING PHYSICIAN ATTEST THAT I HAVE REVIEWED THE IMAGES FOR THE ABOVE PROCEDURE(S) AND AGREE WITH THE FINDINGS DOCUMENTED. Red Pavon MD, electronically signed on Apr 16 2025 10:13AM Narrative 04/16/2025 10:13 AM EDT EXAMINATION: CTA HEAD/NECK STROKE [id number] CT HEAD NECK. INDICATION: 69-year-old male with [...] normal. CTA HEAD: The vessels of the wainwright of [place] and their principal intracranial branches [...] MD - 04/16/2025 EXAMINATION: CTA HEAD/NECK STROKE [id number] CT HEAD NECK. INDICATION: 69-year-old male with [...] normal. CTA HEAD: The vessels of the wainwright of [place] and their principal intracranialbranches are [...] acutelarge vascular territory infarction or hemorrhage. ~~Patent wainwright of[place] without evidence of substantial stenosis or occlusion.~~Patentbilateral cervical carotid and vertebral arteries without evidence of stenosis >70% by NASCET criteria,occlusion, or dissection .~~Full read pending by neuroradiology. ~ Valentin Mena [phone] [id number]: BY ELECTRONICALLY SIGNING THIS REPORT, I THE ATTENDING PHYSICIAN ATTESTTHAT I HAVE REVIEWED THE IMAGES FOR THE ABOVE PROCEDURE(S) AND AGREE WITHTHE FINDINGS DOCUMENTED. Red Pavon MD, electronically signed on Apr 16 2025 10:13AM Dane Morris MD IMG CT ORDERABLES Fi nal Result * (ABNORMAL) Troponin (04/15/2025 6:17 PM EDT) Troponin T HS 82(H) <=19 ng/L 04/15/2025 6:59 PM EDT [facility] Comment: hs-cTnT<=19 ng/L in 99% of healthy individuals. hs-cTnT values of 30, 52, 100 and 1000 ng/L correspond to approximately CHARLIE Gen 4 of 0.01, 0.03, 0.1 and 1 ng/mL Blood PERIPHERAL BLOOD SPECIMEN / Unknown Venipuncture / Unknown 04/15/2025 6:17 PM EDT 04/15/2025 6:20 PM EDT Dane Morris MD LAB BLOOD ORDERABLES Final Result [facility] [address] [place] [address], [place] * (ABNORMAL) APTT (04/15/2025 6:17 PM EDT) PTT 42(H) 25 - 36 s 04/15/2025 7:35 PM EDT [facility] Blood PERIPHERAL BLOOD SPECIMEN / Unknown Venipuncture / Unknown 04/15/2025 6:17 PM EDT 04/15/2025 6:20 PM EDT us Dane Morris MD LAB BLOOD ORDERABLES Final Result [facility] [address] [place] [address], [place] * Prothrombin Time - INR (04/15/2025 6:17 PM EDT) Pathologist [facility] [place] Prothrombin Time 11.6 9.4 - 12.5 s 04/15/2025 7:35 PM EDT [facility] INR 1.1 0.9 - 1.1 04/15/2025 7:35 PM EDT [facility] Blood PERIPHERAL BLOOD SPECIMEN / Unknown Venipuncture / Unknown 04/15/2025 6:17 PM EDT 04/15/2025 6:20 PM EDT us Dane Morris MD LAB BLOOD ORDERABLES Final Result Performing Organization Address [facility]/ZIP Co de Phone Number [facility] [address] [place] [address], [place] * Type and Screen (04/15/2025 6:17 PM EDT) Pathologist [facility] [place] ABO and Rh B POS 04/15/2025 7:42 PM EDT [facility] Antibody Screen NEG 7:42 PM EDT [facility] TS Expiration Date 04/18/2025 23:59 04/15/2025 7:42 PM EDT [facility] BLOOD [facility] Blood Venipuncture / Unknown 04/15/2025 6:17 PM EDT 04/15/2025 6:41 PM EDT us Dane Morris MD BLOOD BANK TEST ORDE RABLES Final Result [facility] BLOOD [facility] [address] [place] [address], [place] * TSH (04/15/2025 6:17 PM EDT) Pathologist [facility] [place] TSH 1.50 0.27 - 4.20 uIU/mL 04/15/2025 10:40 PM EDT [facility] Blood PERIPHERAL BLOOD SPECIMEN / Unknown Venipuncture / Unknown 04/15/2025 6:17 PM EDT 04/15/2025 6:20 PM EDT us Dane Morris MD LAB BLOOD ORDERABLES Final Result [facility] [address] [place] [address], [place] * (ABNORMAL) Lipid Panel (01/20/2023 8:26 AM EDT) Cholesterol 157 <=199 mg/dL 01/20/2023 1:09 PM EDT [facility] Triglycerides 164(H) <150 mg/dL 01/20/2023 1:09 PM EDT [facility] HDL Cholesterol 49 >=40 mg/dL 3 1:09 PM EDT [facility] Risk Factor 3.2 <5.0 01/20/2023 1:09 PM EDT [facility] LDL Cholesterol 75 <100 mg/dL 3 1:09 PM EDT [facility] Blood BLOOD / Unknown 01/20/2023 8 :26 AM EDT 01/20/2023 8:45 AM EDT Narrative CONVERSION FROM [facility] - 01/20/2023 1:09 PM EDT Release to patient->Immediate us Chuck Bell MD LAB BLOOD ORDERABLES Final Result CONVERSION FROM [facility] [address] [place] [address] from Last 3 Months or Most Recently Relevant to Health Maintenance Insurance MEDICARE MEDEX MEDICARE MEDEX Advance Directives Documents on File Type Date Recorded Patient Direct Mail Coordinator Osmin nathan Health Care Proxy 04/17/2025 3:36 PM MOLST/POLST 09/12/2023 12:57 PM 08/05/23 Health Care Proxy 05/21/2025 11:52 AM Decr ee on Special Proceeding in RE: Health Care [...] Relationship Healthcare Agent Relationshi p Communication Delvin Adan Health Care Agent Care Teams Chancery Clerk Relationship Specialty Start Date End Date Kilo Valera Jr. [address] [place] [address] PCP - General 11/09/22
--- OUTSIDE RECORDS SUMMARY | 2025-06-28 02:06 | XMS_ITS | Referral Summary ---
Author Organization [facility] r Address [address] [place] [address] Phone Care Team Providers Care Evaluator Name Role Phone Malcolm Edmondson MD Unavailable [...] of Treatment Not on file Care Teams Evaluator Relationship Specialty Start Date End Date Malcolm Edmondson MD [address] PCP - Insurance 04/08/15
--- OUTSIDE RECORDS SUMMARY | 2025-06-28 02:06 | XMS_ITS | Encounter Summary ---
Author Organization [facility] Address [address] [id number] Care Team Providers Care Milk Inspector Name Role Phone Malcolm Edmondson Primary Care Provider [phone] System, Provider Not In Primary Care Provider Un available Kalyan, Johanna Alonso Primary Care Provider Unavai lable Kalyan, Johanna Alonso Primary Care Provider Unavai lable Unknown, Provider Primary Care Provider Unava ilable None, Pcp Primary Care Provider UnavailJohanna Sorto MD Primary Care Provider [phone] None, Pcp Primary Care Provider UnavailSkye Chagn MD Primary Care Provider [phone] Kilo Valera Jr. Primary Care Provid er Encounter Details Date Type Department Care Team (Late st Contact Info) Description 03/31/2015 Orders Only [facility] - [address] [place] [address] Param Rhodes MD [address] [place] [address] Schizoaffective disorder, unspecified condition (Primary Dx) Social [...] documented as of this encounter Care Teams Milk Inspector Relationship Specialty Start Date End Date Malcolm Edmondson PCP - General 08/31/14 12/31/19 System, Provider Not In PCP - General 01/01/20 04/13/20 Johanna Biggs [address] [place] [address] [place] [address] PCP - General 04/14/20 10/27/20 Johanna Biggs [facility] [place] [address] PCP - General 10/28/20 01/03/21 Unknown, Provider, [address] [place] [address] PCP - General 01/04/21 03/10/21 None, Pcp, [address] [place] [address] PCP - General 03/11/21 11/22/21 Johanna Biggs MD [address] [place] [address] PCP - General Family Practice 11/23/21 05/29/22 None, PcpMD [address] [place] [address] PCP - General 05/30/22 05/31/22 Skye De Leon MD [address] [place] [address] PCP - General Internal Medicine 06/01/22 11/08/22 Kilo Valera Jr. [address] [place] [address] PCP - General 11/09/22 documented as of this encounter
--- OUTSIDE RECORDS SUMMARY | 2025-06-28 02:08 | XMS_ITS | Encounter Summary ---
Author Organization [facility] Address [address] [place] [address] Care Team Providers Care Child And Adolescent Psychologist Name Role Phone Malcolm Edmondson Primary Care Provider [phone] System, Provider Not In Primary Care Provider Un available Kalyan, Johanna Alonso Primary Care Provider Unavai lable Kalyan, Johanna Alonso Primary Care Provider Unavai lable Unknown, Provider Primary Care Provider Unava ilable None, Pcp Primary Care Provider UnavailJohanna Sorto MD Primary Care Provider [phone] None, Pcp Primary Care Provider Skye Morton MD Primary Care Provider [phone] Kilo Valera Jr. Primary Care Provid er Encounter Details Date Type Department Care Team (Late st Contact Info) Description 11/29/2016 Orders Only [facility] 41 [facility] - [address] [place] [address] Param Rhodes MD [address] [place] [address] Schizoaffective disorder, bipolar type (Primary Dx) Social [...] documented as of this encounter Care Teams Child And Adolescent Psychologist Relationship Specialty Start Date End Date Malcolm Edmondson PCP - General 08/31/14 12/31/19 System, Provider Not In PCP - General 01/01/20 04/13/20 Johanna Biggs [address] [place] [address] [place] [address] PCP - General 04/14/20 10/27/20 Johanna [place] [address] PCP - General 10/28/20 01/03/21 Unknown, Provider, [address] [place] [address] PCP - General 01/04/21 03/10/21 None, Pcp, [address] [place] [address] PCP - General 03/11/21 11/22/21 Johanna Biggs MD [address] [place] [address] PCP - General Family Practice 11/23/21 05/29/22 Lisa, MD Rere [address] [place] [address] PCP - General 05/30/22 05/31/22 Skye De Leon MD [address] [place] [address] PCP - General Internal Medicine 06/01/22 11/08/22 Kilo Valera Jr. [address] [place] [address] PCP - General 11/09/22 documented as of this encounter
--- OUTSIDE RECORDS SUMMARY | 2025-06-28 02:08 | XMS_ITS | Encounter Summary ---
Author Organization [facility] Address [address] [place] [address] Care Team Providers Care Project Program Manager Name Role Phone Malcolm Edmondson Primary Care Provider [phone] System, Provider Not In Primary Care Provider Un available Kalyan, Johanna Alonso Primary Care Provider Unavai lable Kalyan, Johanna Alonso Primary Care Provider Unavai lable Unknown, Provider Primary Care Provider Unava ilable None, Pcp Primary Care Provider UnavailJohanna Sorto MD Primary Care Provider [phone] None, Pcp Primary Care Provider Skye Morton MD Primary Care Provider [phone] Kilo Valera Jr. Primary Care Provid er Encounter Details Date Type Department Care Team (Late st Contact Info) Description 11/29/2016 Orders Only [facility] 41 [facility] - [address] [place] [address] Param Rhodes MD [address] [place] [address] Schizoaffective disorder, bipolar type (Primary Dx) Social [...] documented as of this encounter Care Teams Project Program Manager Relationship Specialty Start Date End Date Malcolm Edmondson PCP - General 08/31/14 12/31/19 System, Provider Not In PCP - General 01/01/20 04/13/20 Johanna Biggs [address] [place] [address] [place] [address] PCP - General 04/14/20 10/27/20 Johanna Big[place] [address] PCP - General 10/28/20 01/03/21 Unknown, Provider, [address] [place] [address] PCP - General 01/04/21 03/10/21 None, Pcp, [address] [place] [address] PCP - General 03/11/21 11/22/21 Johanna Biggs MD [address] [place] [address] PCP - General Family Practice 11/23/21 05/29/22 Lisa, MD Rere [address] [place] [address] PCP - General 05/30/22 05/31/22 Skye De Leon MD [address] [place] [address] PCP - General Internal Medicine 06/01/22 11/08/22 Kilo Valera Jr. [address] [place] [address] PCP - General 11/09/22 documented as of this encounter
--- OUTSIDE RECORDS SUMMARY | 2025-06-28 02:08 | XMS_ITS | Encounter Summary ---
Author Organization [facility] Address [address] [place] [address] Care Team Providers Care Replacer Name Role Phone Kilo Valera Jr. 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 [...] ORDERABLE S Final Result Performing Organization Address [facility] de Phone Number [facility] [address] [place] [address], * Strep Pneumoniae Urine Antigen (12/23/2022 7:46 AM EST) Strep pneumo Urine Antigen Negative Negative [facility] 12/23/2022 4:55 PM EST [facility] Comment:Suggesting no curren t or recent pneumococcal infection. Infection due to S. Pneumoniae can not be ruled out since the antigen present in the sample maybe below the detection limit of the test. Urine MID-STREAM URINE SPECIMEN / Unknown 12/23/2022 7:46 AM EST 12/23/2022 3:28 PM EST us Len Goetz MD MICROBIOLOGY - GENERAL ORDERABLE S Final Result Performing Organization Address [facility] Co de Phone Number [facility] [address] [place] [address], [place] [phone] * Culture, Blood (12/23/2022 4:16 AM EST) Pathologist [facility] Culture No growth after 5 days STEPHEN 12/28/2022 11:01 AM EST [facility] Blood PERIPHERAL NERVOUS SYSTEM STRUCTURE / Unknown 12/23/2022 4:16 AM EST 12/23/2022 10:14 AM EST us Mike Ewing MD MICROBIOLOGY - GENERAL ORDERABLE S Final Result Performing Organization Address City/[facility]/ZIP Co de Phone Number [facility] [address] [place] [address], [place] [phone] * Culture, Blood (12/23/2022 4:15 AM EST) Culture No growth after 5 days STEPHEN 12/28/2022 11:01 AM EST [facility] Blood PERIPHERAL NERVOUS SYSTEM STRUCTURE / Unknown 12/23/2022 4:15 AM EST 12/23/2022 10:14 AM EST us Mike Ewing MD MICROBIOLOGY - GENERAL ORDERABLE S Final Result Performing Organization Address [facility] Co de Phone Number [facility] [address] [place] [address], [place] [phone] documented in this encounter Visit Diagnoses Not [...] documented as of this encounter Care Teams Replacer Relationship Specialty Start Date End Date Kilo Valera Jr. [address] [place] [address] PCP - General 11/09/22 documented as of this encounter
--- OUTSIDE RECORDS SUMMARY | 2025-06-28 02:08 | XMS_ITS | Encounter Summary ---
Author Organization [facility] Address [address] [id number] Care Team Providers Care Block Cuber Name Role Phone Malcolm Edmondson Primary Care Provider [phone] System, Provider Not In Primary Care Provider Un available Kalyan, Johanna Alonso Primary Care Provider Unavai lable Kalyan, Johanna Alonso Primary Care Provider Unavai lable Unknown, Provider Primary Care Provider Unava ilable None, Pcp Primary Care Provider Johanna Kidd MD Primary Care Provider [phone] None, Pcp Primary Care Provider Skye Morton MD Primary Care Provider [phone] Kilo Valera Jr. Primary Care Provid er Encounter Details Date Type Department Care Team (Late st Contact Info) Description 11/29/2016 Orders Only [facility] 41 [facility] - [address] [place] [address] Param Rhodes MD [address] [place] [address] Schizoaffective disorder (Primary Dx) Social History Tobacco [...] documented as of this encounter Care Teams Block Cuber Relationship Specialty Start Date End Date Malcolm Edmondson PCP - General 08/31/14 12/31/19 System, Provider Not In PCP - General 01/01/20 04/13/20 Johanna Biggs [address] [place] [address] [place] [address] PCP - General 04/14/20 10/27/20 Johanna Big[place] [address] PCP - General 10/28/20 01/03/21 Unknown, Provider, [address] [place] [address] PCP - General 01/04/21 03/10/21 None, Pcp, [address] [place] [address] 18899 PCP - General 03/11/21 11/22/21 Johanna Biggs MD [address] [place] [address] PCP - General Family Practice 11/23/21 05/29/22 None, MD Rere [address] [place] [address] PCP - General 05/30/22 05/31/22 Skye De Leon MD [address] [place] [address] PCP - General Internal Medicine 06/01/22 11/08/22 Kilo Valera Jr. [address] [place] [address] PCP - General 11/09/22 documented as of this encounter
--- OUTSIDE RECORDS SUMMARY | 2025-06-28 02:08 | XMS_ITS | Encounter Summary ---
Author Organization [facility] Address [address] [id number] Care Team Providers Care Tungsten Refiner Name Role Phone Malcolm Edmondson Primary Care Provider [phone] System, Provider Not In Primary Care Provider Un available Kalyan, Johanna Alonso Primary Care Provider Unavai lable Kalyan, Johanna Alonso Primary Care Provider Unavai lable Unknown, Provider Primary Care Provider Unava ilable None, Pcp Primary Care Provider UnavailJohanna Sorto MD Primary Care Provider [phone] None, Pcp Primary Care Provider Syke Morton MD Primary Care Provider [phone] Kilo Valera Jr. Primary Care Provid er Encounter Details Date Type Department Care Team (Late st Contact Info) Description 11/29/2016 Orders Only [facility] 41 [facility] - [address] [place] [address] Param Rhodes MD [address] [place] [address] Social History Tobacco Use Types Packs/Day Years [...] documented as of this encounter Care Teams Tungsten Refiner Relationship Specialty Start Date End Date Malcolm Edmondson PCP - General 08/31/14 12/31/19 System, Provider Not In PCP - General 01/01/20 04/13/20 Johanna Biggs [address] [place] [address] [place] [address] PCP - General 04/14/20 10/27/20 Johanna Biggs [place] [address] PCP - General 10/28/20 01/03/21 Unknown, Provider, [address] [place] [address] PCP - General 01/04/21 03/10/21 None, Pcp, [address] [place] [address] PCP - General 03/11/21 11/22/21 Johanna Biggs MD [address] [place] [address] PCP - General Family Practice 11/23/21 05/29/22 None, MD Rere [address] [place] [address] PCP - General 05/30/22 05/31/22 Skye De Leon MD [address] [place] [address]879 PCP - General Internal Medicine 06/01/22 11/08/22 Kilo Valera Jr. [address] [place] [address] PCP - General 11/09/22 documented as of this encounter
[2025-06-28] MEDS: Albuterol/Iprat 2.5/0.5MG 3 ML AMPUL.NEB INHALE ×4 (08:04→21:16)
[2025-06-28 08:28] LABS: Hematocrit 33.9 % (42.0-52.0); Hemoglobin 11.4 g/dl (14.0-18.0); Mean Corpuscular HGB Conc 33.6 g/dl (31.0-36.0); Mean Corpuscular Hemoglobin 30.6 pg (27.0-33.0); Mean Corpuscular Volume 90.9 fL (80.0-98.0); NRBC Abs Auto 0.000 X10*3/uL (0.0-0.012); NRBC Pct Auto 0.0 /100WBC (0.0-0.2); Platelet Count 188 X10*3/uL (160-400); Red Blood Count 3.73 X10*6/uL (4.60-5.80); White Blood Count 5.7 X10*3/uL (4.8-10.8)
[2025-06-28 08:49] LABS: Anion Gap 11 (12-20); Blood Urea Nitrogen 23 mg/dL (9-16); Calcium 8.7 mg/dL (8.4-10.2); Carbon Dioxide 31 mmol/L (22-29); Chloride 108 mmol/L (96-108); Estimated Glomerular Filt Rate > 60; Potassium 4.3 mmol/L (3.3-5.1); Sodium 146 mmol/L (135-145)
[2025-06-28] MEDS: 0.9 % Sodium Chloride Flush 3 ML SYRINGE IVFLUSH ×3 (10:01→20:53)
--- NOTE | 2025-06-28 10:51 | PHA.MEDREC ---
Pharmacy Consult ? Medication Reconciliation Pharmacy has completed the medication reconciliation. Pt transferred from , continued med rec from that #.
--- NOTE | 2025-06-28 11:51 | PM.PSYCN ---
History of Present Illness Date of Service: 06/28/25 Chief Complaint: Altered Mental Status Reason for Consult: Ongoing med management HPI Narrative: As per Hospitalist H and P last PM: 70 years old man with PMHx significant for schizophrenia there was admitted to the psychiatric service 2 days ago. Prior to admission he was at [facility] after he presented with as lethargy and mute. It was also documented that he had had episodes of unresponsiveness with negative workup for stroke/ID/seizures. Miguel A I was contacted by nursing stating that the patient is lethargic and is having episodes of apnea. He has been having issues managing his secretions and requiring secretions suctioned and breathing treatments. Yesterday CXR was performed and came back normal. On evaluation, the patient seems to be sleeping, awakes upon painful stimuli. He received his psych meds last night. His vital signs have remained stable. The patient has a PEG tube due to dysphagia... 10 y/o man with the following medical problems: Lethargy, likely secondary to psychiatric meds + ?Periods of apnea. Telemetry. Pulse oximetry. There is no respiratory acidosis. Ammonia is normal (pt takes valproic acid). Recent CXR is negative. BNP is normal. Prior to current hospitalization patient was at [facility] and had workup negative for seizures and stroke. Difficulty managing secretions. Suctioning as needed. DuoNeb Dysphagia. G-tube in place. Continue tube feeding. Hyperlipidemia/CAD. Continue Lipitor. Constipation. Continue lactulose. GERD. Continue Pepcid. BPH. Continue tamsulosin. Schizophrenia. Per psychiatric. Patient will need hospitalization for at least 2 midnights for lethargy and periods of apnea observed by nursing management and treatment with continuous cardiac monitoring and pulse oximetry Psych Meds while on S1/sergio Unit: Clozapine 225, gabapentin 400, haldol 4 and prn, traz 150 and depakote 500 Today: patient presents pleasant and engaged. Denied psychosis. Still endorses feeling depressed suicidal. Sleep remained poor. Aware why he medical floor. Psychotropic medications we discussed each 1- understand clozapine has been for schizophrenia psychosis not want that changed Also helps with suicidality. regarding trazodone would actually want that medication increased, rather than lowered or discontinued as sleep poor. Haldol reports helpful intermittently breakthrough psychotic symptoms not want that adjusted. Gabapentin is for nerve pain. Diagnostics Vital Signs (24Hr): Vital Signs - 24 hr 06/28/25 02:53 06/28/25 08:00 06/28/25 08:04 Temperature 97.3 F 97.1 F Pulse Rate 95 100 109 H Respiratory Rate 16 20 18 Blood Pressure 152/83 H 131/80 Pulse Oximetry 98 99 Oxygen Delivery Method Room Air Room Air 06/28/25 11:44 Temperature Pulse Rate 97 Respiratory Rate 18 Blood Pressure Pulse Oximetry Oxygen Delivery Method Labs 06/28/25 08:03 06/28/25 08:03 Labs: Laboratory Results - last 48 hr 06/28/25 08:03 WBC 5.7 RBC 3.73 L Hgb 11.4 L Hct 33.9 L MCV 90.9 MCH 30.6 MCHC 33.6 RDW 15.8 Plt Count 188 MPV 9.2 L Absolute Nucleated RBC 0.000 Nucleated RBC % (auto) 0.0 Sodium 146 H Potassium 4.3 Chloride 108 Carbon Dioxide 31 H Anion Gap 11 L BUN 23 H Creatinine 0.77 Estim Creat Clear Calc TNP Estimated GFR > 60 Random Glucose 125 H Calcium 8.7 Medications Medications Current Medications Albuterol/Ipratropium (Albuterol/Iprat 2.5/0.5mg 3 Ml Ampul.Neb) 3 ml INHALE RQ4H WHILE AWAKE [facility] Last Admin: 06/28/25 11:42 Dose: 3 ml Enoxaparin Sodium (Enoxaparin Sodium 40 Mg/0.4 Ml Syringe) 40 mg SUBCUT Q24H [facility] Last Admin: 06/28/25 10:00 Dose: 40 mg Famotidine (Famotidine 20 Mg Tablet) 20 mg G-TUBE BID [facility] Last Admin: 06/28/25 10:00 Dose: 20 mg Lactulose (Lactulose 20 Gm/30 Ml Solution) 20 gm G-TUBE DAILY [facility] Last Admin: 06/28/25 10:17 Dose: Not Given Sodium Chloride (0.9 % Sodium Chloride Flush 3 Ml Syringe) 3 ml IVFLUSH QSHIFT [facility] Last Admin: 06/28/25 10:01 Dose: 3 ml Allergies Allergies Allergy/AdvReac Type Severity Reaction Status Date / Time No Known Allergies Allergy Verified 06/25/25 21:33 Assessment & Plan Assessment & Plan (1) Schizophrenia: Qualifiers: Schizophrenia type: unspecified Qualified Code(s): F20.9 - Schizophrenia, unspecified Status: Acute Code(s): F20.9 - Schizophrenia, unspecified Plan overall episodes of apnea unlikely to be related to psychotropic medication regimen have not been adjusted since his admission to the geriatric psychiatry few days ago. He has also been higher doses clozapine in the past. Haldol also unlikely to be associated with apnea /sedation. Trazodone not being helping with sleep ie has not been too sedating and also unlikely to be contributing. gabapentin and Depakote doses also not Very high. Overall from a psychotropic medication perspective would recommend continuing doses that he was the Geriatric Psychiatry unit- Clozapine 225, gabapentin 400, haldol 4 and prn, traz 150 and depakote 500. psychiatry will continue to follow while on the medical floor Total time managing care of this patient today ____ minutes.
--- NOTE | 2025-06-28 12:56 | HO.PM.IMPN ---
Subjective Subjective Date of Service: 06/28/25 Interval History: no apparent distress rambling speech hx asthma but not LOUANN Review of Systems Review of Systems: Yes all other systems are reviewed and are negative Physical Exam Vital Signs: Vital Signs: Last Vital Signs Temp 97.2 F 06/28/25 12:00 Pulse 95 06/28/25 12:00 Resp 19 06/28/25 12:00 BP 127/81 06/28/25 12:00 Pulse Ox 99 06/28/25 12:00 O2 Del Method Room Air 06/28/25 12:00 Gen: in no acute distress, alert HEENT: sclera anicteric, moist mucus membranes Neck: supple Lungs: clear to auscultation bilaterally Heart: regular rate and rhythm, no murmurs Abd: soft, non-tender, non-distended, G tube in place Ext: no edema Skin: warm/well-perfused Neuro: alert and oriented x3, no focal findings Psych: appropriate affect, rambling speech Objective Data Active Medications Albuterol/Ipratropium (Albuterol/Iprat 2.5/0.5mg 3 Ml Ampul.Neb) 3 ml INHALE RQ4H WHILE AWAKE [facility] Last Admin: 06/28/25 11:42 Dose: 3 ml Documented By: SHANNAN Enoxaparin Sodium (Enoxaparin Sodium 40 Mg/0.4 Ml Syringe) 40 mg SUBCUT Q24H [facility] Last Admin: 06/28/25 10:00 Dose: 40 mg Documented By: LUCIAN Famotidine (Famotidine 20 Mg Tablet) 20 mg G-TUBE BID [facility] Last Admin: 06/28/25 10:00 Dose: 20 mg Documented By: LUCIAN Lactulose (Lactulose 20 Gm/30 Ml Solution) 20 gm G-TUBE DAILY [facility] Last Admin: 06/28/25 10:17 Dose: Not Given Documented By: LUCIAN Non-Admin Reason: has diarrhea Sodium Chloride (0.9 % Sodium Chloride Flush 3 Ml Syringe) 3 ml IVFLUSH QSHIFT [facility] Last Admin: 06/28/25 10:01 Dose: 3 ml Documented By: LUCIAN Labs 06/28/25 08:03 06/28/25 08:03 Labs: Laboratory Results - last 24 hr 06/28/25 08:03 MCV 90.9 MCH 30.6 MCHC 33.6 RDW 15.8 Plt Count 188 MPV 9.2 L Absolute Nucleated RBC 0.000 Nucleated RBC % (auto) 0.0 Anion Gap 11 L Estim Creat Clear Calc TNP Estimated GFR > 60 Random Glucose 125 H Calcium 8.7 Assessment and Plan (1) Dysphagia: Status: Acute Plan hospitalist service d1, 70yo M with schizophrenia, PEG due to dysphagia, admitted to geriatric psychaitry 06/26/25 after prolonged hospitalization at [facility] where he preseted lethargic and mute; had episodes of unresponsiveness; workup for stroke and seizure was negative. Transferred to hospitalist service due to lethargy and episodes of apnea though now appears awake and alert and managing secretions. lethargy, ?nocturnal apnea - overnight oximetry, inpatient sleep study - Psychiatry consult due to concern for oversedation from psychiatric medications - will review [facility] records chronic lung disease/asthma: Duonebs schizophrenia; clozapine [check level], trazodone, valproate [check level], gabapentin HLD: atorvastatin constipation: bowel regimen BPH: tamsulosin VTE ppx: enoxaparin dispo: eventual return to geriatric psychiatry In my clinical judgment, the patient requires continued inpatient hospitalization for the following reasons: workup of lethargy/apnea Total time managing care of this patient today: 35 minutes. Quality Stroke Does the patient have a stroke diagnosis?: No VTE Prior VTE?: No VTE Risk Level:: Medical - moderate - high VTE Device Contraindication: Treatment Not Indicated VTE Drug Contraindication: N/A - Med Ordered
[2025-06-28] MEDS: Valproic Acid Liquid 250 MG/5 ML SOLUTION 500 MG G-TUBE ×2 (14:47→20:53)
[2025-06-28] MEDS: Lidocaine 4 % Patch ADH..PATCH 1 PATCH TRANSDERMA (14:48)
--- NOTE | 2025-06-28 23:12 | PC.NURSE ---
I am unable to assess if pt is really disoriented to time and lace (stated he is in [facility] and it is January of 2027). Pt stated to the nurse that she is uneducated, he would spit o her but his spit is to gary, she had stolen his poems, she is a witch and she will hang. Whatever that means.
[2025-06-29] VITALS (11 sets, daily range): BP systolic 122–158; BP diastolic 82–94; PULSE 84–105; RESP 16–19; TEMP 36.5–36.7; O2SAT 94–100; BMI 22.1
[2025-06-29] MEDS: Albuterol/Iprat 2.5/0.5MG 3 ML AMPUL.NEB INHALE ×4 (07:51→19:42)
--- NOTE | 2025-06-29 09:50 | MHC.CLN ---
PT WITH PEG TUBE TRANSFER FROM [facility]CH PT TO RECEIVE TF VITAL 1.5 AT MAX GOAL RATE 85ML/HR X 16 HOURS WITH 240ML FREE WATER FLUSH Q 4 HRS TO PROVIDE 2040KCALS (28KCALS/KG), 92G PROTEIN (1.2G/KG), 2479ML TOTAL WATER FROM FORMULA AND FLUSHES (34ML/KG) MONITOR TOLERANCE AND LYTES SEE FULL ASSESSMENT
[2025-06-29] MEDS: 0.9 % Sodium Chloride Flush 3 ML SYRINGE IVFLUSH ×3 (10:25→22:04)
[2025-06-29] MEDS: Multivitamin with Minerals Liq 15 ML LIQUID G-TUBE (10:25)
[2025-06-29] MEDS: Valproic Acid Liquid 250 MG/5 ML SOLUTION 500 MG G-TUBE ×2 (10:25→22:03)
[2025-06-29] MEDS: Lidocaine 4 % Patch ADH..PATCH 1 PATCH TRANSDERMA (10:27)
--- NOTE | 2025-06-29 11:29 | P.PNIM_ITS ---
Subjective Subjective Date of Service: 06/29/25 Interval History: disorganized/paranoid thoughts has severe sleep apnea on PSG Review of Systems Review of Systems: Yes all other systems are reviewed and are negative Physical Exam 2 Vital Signs: Vital Signs: Last Vital Signs Temp 97.7 F 06/29/25 07:58 Pulse 90 06/29/25 11:24 Resp 18 06/29/25 11:24 BP 134/84 06/29/25 07:58 Pulse Ox 95 06/29/25 07:58 O2 Del Method Room Air 06/29/25 07:58 O2 Flow Rate 2 06/29/25 03:16 BMI result Body Mass Index 22.1 Gen: in no acute distress, alert HEENT: sclera anicteric, moist mucus membranes Neck: supple Lungs: clear to auscultation bilaterally Heart: regular rate and rhythm, no murmurs Abd: soft, non-tender, non-distended, G tube in place Ext: no edema Skin: warm/well-perfused Neuro: alert and oriented x3, no focal findings Psych: bizarre affect and rambling speech Objective Data Active Medications Acetaminophen (Acetaminophen 325 Mg Tablet) 975 mg G-TUBE TID [facility] Last Admin: 06/29/25 10:26 Dose: 975 mg Documented By: BONNIE Albuterol/Ipratropium (Albuterol/Iprat 2.5/0.5mg 3 Ml Ampul.Neb) 3 ml INHALE RQ4H WHILE AWAKE [facility] Last Admin: 06/29/25 11:22 Dose: 3 ml Documented By: SHANNAN Albuterol/Ipratropium (Albuterol/Iprat 2.5/0.5mg 3 Ml Ampul.Neb) 3 ml INHALE Q4H PRN PRN Reason: Shortness of Breath Albuterol/Ipratropium (Albuterol/Iprat 2.5/0.5mg 3 Ml Ampul.Neb) 3 ml INHALE RQ4H WHILE AWAKE PRN PRN Reason: sob Atorvastatin Calcium (Atorvastatin Calcium 20 Mg Tablet) 20 mg G-TUBE DAILY [facility] Last Admin: 06/29/25 10:26 Dose: 20 mg Documented By: BONNIE Bisacodyl (Bisacodyl 10 Mg Supp.Rect) 10 mg ID DAILY PRN PRN Reason: Constipation Calcium Carbonate (Calcium Carbonate 750 Mg Tab.Chew) 750 mg PO TID PRN PRN Reason: Heartburn Clozapine (Clozapine 25 Mg Tablet) 25 mg G-TUBE DAILY [facility] Last Admin: 06/29/25 10:27 Dose: 25 mg Documented By: BONNIE Clozapine (Clozapine 100 Mg Tablet) 200 mg G-TUBE BEDTIME [facility] Last Admin: 06/28/25 20:52 Dose: 200 mg Documented By: REZA Enoxaparin Sodium (Enoxaparin Sodium 40 Mg/0.4 Ml Syringe) 40 mg SUBCUT Q24H [facility] Last Admin: 06/29/25 10:26 Dose: 40 mg Documented By: BONNIE Famotidine (Famotidine 20 Mg Tablet) 20 mg G-TUBE BID [facility] Last Admin: 06/29/25 10:27 Dose: 20 mg Documented By: BONNIE Gabapentin (Gabapentin 100 Mg Capsule) 100 mg G-TUBE DAILY [facility] Last Admin: 06/29/25 10:27 Dose: 100 mg Documented By: BONNIE Gabapentin (Gabapentin 300 Mg Capsule) 300 mg G-TUBE BEDTIME [facility] Last Admin: 06/28/25 20:53 Dose: 300 mg Documented By: REZA Guaifenesin (Guaifenesin 200 Mg/10 Ml 10 Ml Liquid) 10 ml G-TUBE Q4H PRN PRN Reason: Cough Haloperidol (Haloperidol 1 Mg Tablet) 1 mg G-TUBE DAILY [facility] Last Admin: 06/29/25 10:27 Dose: 1 mg Documented By: BONNIE Haloperidol (Haloperidol 1 Mg Tablet) 3 mg G-TUBE BEDTIME [facility] Last Admin: 06/28/25 20:52 Dose: 3 mg Documented By: REZA Haloperidol (Haloperidol 1 Mg Tablet) 2 mg G-TUBE BID PRN PRN Reason: Agitation Lactulose (Lactulose 20 Gm/30 Ml Solution) 20 gm G-TUBE DAILY [facility] Last Admin: 06/29/25 10:26 Dose: 20 gm Documented By: BONINE Lidocaine (Lidocaine 4 % Patch Adh..Patch) 1 patch TRANSDERMA DAILY [facility]; Protocol Last Admin: 06/29/25 10:27 Dose: 1 patch Documented By: BONNIE Multivitamins/Minerals (Multivitamin With Minerals Liq 15 Ml Liquid) 15 ml G- TUBE DAILY [facility] Last Admin: 06/29/25 10:25 Dose: 15 ml Documented By: BONNIE Non-Formulary Medication (Diclofenac Sodium) 2 gm TOPICAL QID PRN PRN Reason: Pain Non-Formulary Medication (Ramelteon) 8 mg PO BEDTIME [facility] Polyethylene Glycol (Polyethylene Glycol 3350 17 Gm Powd.Pack) 17 gm G-TUBE BID [facility] Last Admin: 06/29/25 10:26 Dose: 17 gm Documented By: BONNIE Simethicone (Simethicone 80 Mg Tab.Chew) 80 mg PO Q6H PRN PRN Reason: Dyspepsia Sodium Chloride (0.9 % Sodium Chloride Flush 3 Ml Syringe) 3 ml IVFLUSH QSHIFT [facility] Last Admin: 06/29/25 10:25 Dose: 3 ml Documented By: BONNIE Tamsulosin HCl (Tamsulosin Hcl 0.4 Mg Capsule) 0.4 mg PO BEDTIME [facility] Last Admin: 06/28/25 20:52 Dose: 0.4 mg Documented By: REZA Trazodone HCl (Trazodone Hcl 50 Mg Tablet) 150 mg G-TUBE BEDTIME [facility] Last Admin: 06/28/25 20:53 Dose: 150 mg Documented By: REZA Valproic Acid (Valproic Acid Liquid 250 Mg/5 Ml Solution) 500 mg G-TUBE BID [facility] Last Admin: 06/29/25 10:25 Dose: 500 mg Documented By: BONNIE Labs 06/28/25 08:03 06/28/25 08:03 Labs: Laboratory Results - last 24 hr 06/28/25 13:42 Valproic Acid 13.2 L Assessment and Plan (1) Dysphagia: Status: Acute Plan hospitalist service d2, 70yo M with schizophrenia, PEG due to dysphagia, admitted to geriatric psychaitry 06/26/25 after prolonged hospitalization at [facility] where he presented lethargic and mute; had episodes of unresponsiveness; workup for stroke and seizure was negative. Ultimately treated for catatonia; hospitalization there also complicated by pneumonia and Covid. Arrived on S1 06/26/25 but then transferred to hospitalist service 06/27 due to lethargy and episodes of apnea though now appears awake and alert and managing secretions. Ultimately found to have severe LOUANN. severe LOUANN lethargy, resolved - CPAP at night ordered - Psychiatry consulted and current medication regimen unlikely to cause excess sedation chronic lung disease/asthma: Duonebs schizophrenia; clozapine [check level], trazodone, valproate [check level], gabapentin HLD: atorvastatin constipation: bowel regimen BPH: tamsulosin VTE ppx: enoxaparin dispo: medically cleared to return to geriatric psychiatry In my clinical judgment, the patient requires continued inpatient hospitalization for the following reasons: now awaiting geriatric psychiatry bed Total time managing care of this patient today: 35 minutes. Quality Stroke Does the patient have a stroke diagnosis?: No VTE Prior VTE?: No VTE Risk Level:: Medical - moderate - high VTE Device Contraindication: Treatment Not Indicated VTE Drug Contraindication: N/A - Med Ordered
--- NOTE | 2025-06-29 12:03 | MHC.SLORD ---
Speech Language Pathology Order Status: Pt seen for dysphagia consult. Pt is NPO with tube feeds. MANAGER INTEGRITY discussed with pt his hx of dysphagia and prior MANAGER INTEGRITY intervention. At this time ice chips permitted, pt will need MBSS prior to resuming PO for pleasure. MD notified, assessing MANAGER INTEGRITY to communicate with team to schedule evaluation.
--- NOTE | 2025-06-29 15:05 | HO.WOUND ---
Wound Consult: Initial 70 yr old male admitted to [facility] on 06/28/25 - See progress notes and H&P for detailed history. Wound consult placed for right leg rash. Patient agreeable to assessment and photo documentation. Patient turned to side for care upon assessment, buttocks and coccyx intact with moist pink and blanchable skin. Patient with incontinence, patient reports discomfort to the area. Etiology: right leg dry flaky skin Wound Bed: intact dry flaky skin, mild redness below- patient reports improved from previous Drainage / Odor: none Lakesha wound: ? No Induration, Fluctuance or Warmth noted Pain: none Goals of Treatment: ? routine hygiene with moisturizer Etiology: coccyx and buttocks MASD not pictured Wound Bed: intact moist pink blanching skin Drainage / Odor: none Lakesha wound: ? No Induration, Fluctuance or Warmth noted Pain: none Goals of Treatment: ? offloading and moisture barrier with triad Recommendations: 1. Turn and Reposition every 2 hours and as needed for patient comfort. Use pillows or wedges to support off loading positions. 2. Off Load all bony prominences with use of pillows and heel boots if needed. Apply Preventative foams where needed. 3. Monitor for incontinence and moisture control, use barrier creams when needed for prevention and treatment. 4. Provide adequate and supplemental nutrition. 5. Order or Continue low air loss mattress. 6. When applicable maintain blood glucose levels per Providers order. Buttocks/coccyx: Off Load Pressure with Q2 hr turns and use of pillows - Cleanse with PH balance spray or wipes, pat dry. ?Apply thin layer of Triad to wound bed - only pat and dab no scrub and rub when soiling occurs. Reapply thin layer PRN after each episode of incontinence. Re-consult wound care Nurse for wound deterioration or wound changes.
--- NOTE | 2025-06-29 15:16 | MHC.CM.PN ---
Addendum entered by Mariama Parikh 06/29/25 16:17: DANIEL STATES HE DOES NOT WANT PT STUCK IN A SNF FOREVER, HE IS LIKELY OUT OF MCR DAYS, BUT HAS PRIVATE PAY FUNDS. THE HOPE WOULD BE THAT PTS ABILITY TO SWALLOW WOULD IMPROVE AND HIS FEEDING TUBE COULD BE REMOVED AT WHICH TIME HE COULD GO TO [facility] PT WILL NEED BLS WHEREVER HE GOES AT DC Addendum entered by Mariama Parikh 06/29/25 16:12: PTS BROTHER CALLED CM BACK, STATES PT HAS BEEN ON THE PSYCH UNIT FOR SOME TIME AFTER HAVING HIS CLOZARIL DECREASED, IT HAS NOW BEEN TITRATED BACK UP. HE SAYS HE IS CONCERNED THE [facility] UNIT MAY NOT BE THE BEST PLACE FOR PT DUE TO OTHER PTS BEING SO IMPAIRED. HE SAYS HE WOULD LIKE PT TO GO TO A STR NEAR [place] OR [place] SO PTS FRIEND OR HIMSELF COULD BE CLOSER. Original Note: PT TRANSFERRED FROM THE [facility] UNIT VM LEFT FOR HIS BROTHER/HCP, DANIEL RIVERA [phone] REQUESTING A RETURN CALL AND EXPLAINING IMM PER MITESH NOTES, PT WAS LIVING IN [facility], HOWEVER HIS BROTHER GAVE UP HIS BED HE WAS IN THE HOSPITAL AND REHAB, IT IS UNCLEAR WHAT PTS CURRENT LIVING SITUATION IS. HCP ON FILE NO PCP LISTED DCP TBD: [facility] PT DOES NOT HAVE INSURANCE FOR LTC PLACEMENT
--- NOTE | 2025-06-29 19:30 | PC.NURSE ---
pt took his foam dressings off from his heels because he wanted to have a break .
[2025-06-30] VITALS (7 sets, daily range): BP systolic 127–157; BP diastolic 75–83; PULSE 83–99; RESP 16–18; TEMP 36.1–36.6; O2SAT 96–99
[2025-06-30] MEDS: Albuterol/Iprat 2.5/0.5MG 3 ML AMPUL.NEB INHALE ×2 (07:49→11:33)
[2025-06-30] MEDS: 0.9 % Sodium Chloride Flush 3 ML SYRINGE IVFLUSH (09:50)
[2025-06-30] MEDS: Valproic Acid Liquid 250 MG/5 ML SOLUTION 500 MG G-TUBE (09:52)
[2025-06-30] MEDS: Multivitamin with Minerals Liq 15 ML LIQUID G-TUBE (09:52)
[2025-06-30] MEDS: Lidocaine 4 % Patch ADH..PATCH 1 PATCH TRANSDERMA (09:53)
--- NOTE | 2025-06-30 11:33 | PM.DS ---
DS: Providers Provider Date of Service: 06/30/25 Date of admission: 06/28/25 01:52 Date of discharge: 06/30/25 Primary care physician: Unknown Physician Consults: 06/28/25 02:11 Consult to Psychiatry Routine Consulting Provider: [facility] Psych Covering Reason for consultation: Psychiatric meds management- OVERSEDATED Has provider been notified: No 06/28/25 13:14 Consult to Psychiatry Routine Consulting Provider: [facility] Psych Covering Reason for consultation: ?oversedation from psychiatric meds 06/29/25 11:25 Inpt CARE Team Crisis Consult Stat Comment: Reason for consultation: medically clear to return to [facility] 06/29/25 12:32 Consult to Wound Care Routine Reason for consultation: scaly rash to (R) smith area, redness LALA heels DS: Diagnosis Discharge Diagnosis (1) Dysphagia: Status: Acute (2) Schizophrenia: Status: Acute (3) Chronic pulmonary aspiration: Status: Acute (4) On tube feeding diet: Status: Acute (5) LOUANN (obstructive sleep apnea): Status: Acute DS: Summary Hospital Course Hospital Course: From the history and physical by the admitting hospitalist, Hamida Rincon, 06/28/25: Carter Raymundo is a 70 years old man with PMHx significant for schizophrenia there was admitted to the psychiatric service 2 days ago. Prior to admission he was at [facility] after he presented with as lethargy and mute. It was also documented that he had had episodes of unresponsiveness with negative workup for stroke/TN/seizures. Miguel A I was contacted by nursing stating that the patient is lethargic and is having episodes of apnea. He has been having issues managing his secretions and requiring secretions suctioned and breathing treatments. Yesterday CXR was performed and came back normal. On evaluation, the patient seems to be sleeping, awakes upon painful stimuli. He received his psych meds last night. His vital signs have remained stable. The patient has a PEG tube due to dysphagia 70yo M with schizophrenia, PEG due to dysphagia, admitted to geriatric psychaitry 06/26/25 after prolonged hospitalization at [facility] where he presented lethargic and mute; had episodes of unresponsiveness; workup for stroke and seizure was negative. Ultimately treated for catatonia; hospitalization there also complicated by pneumonia and Covid. Arrived on S1 06/26/25 but then transferred to hospitalist service 06/27 due to lethargy and episodes of apnea though on the hospitalist service, was awake and alert and managing secretions without any issues. Psychiatry consulted and current medication regimen unlikely to cause excess sedation Ultimately found to have severe LOUANN on inpatient sleep study with AHI of 32/hr, franklyn SaO2 of 78%. He was started on CPAP 5-20 cm auto mode. Tube feeds were restarted and advanced to goal in consultation with TUBING MACHINE TENDER and Nutrition. He had had an MBSS at [facility] that showed severe aspiration; NPO except comfort feeding was recommended, but comfort feeding should only be allowed if the patient fully understands the risks of aspiration. He was transferred back to the geriatric psychiatry service for ongoing psychiatric care. Time Attestation Discharge Coordination Time (in mins): 45 Quality: Safe Use of Opioids Does Pt have an Active Cancer Diagnosis on the Problem List?: No Quality: Stroke Does the patient have a stroke diagnosis?: No Physical Exam Vital Signs: Vital Signs: Last Vital Signs Temp 97.5 F 06/30/25 11:11 Pulse 95 06/30/25 11:11 Resp 18 06/30/25 11:11 BP 138/83 06/30/25 11:11 Pulse Ox 98 06/30/25 11:11 O2 Del Method Room Air 06/30/25 11:11 O2 Flow Rate 2 06/29/25 03:16 BMI result Body Mass Index 22.1 Gen: in no acute distress, alert HEENT: sclera anicteric, moist mucus membranes Neck: supple Lungs: clear to auscultation bilaterally Heart: regular rate and rhythm, no murmurs Abd: soft, non-tender, non-distended, G tube in place Ext: no edema Skin: warm/well-perfused Neuro: alert and oriented x3, no focal findings Psych: bizarre affect and rambling speech DS: Data Data Completed and Pending Completed studies during hospitalization [Text1]: Laboratory Results WBC 5.7 X10*3/uL (4.8-10.8) 06/28/25 08:03 RBC 3.73 X10*6/uL (4.60-5.80) L 06/28/25 08:03 Hgb 11.4 g/dl (14.0-18.0) L 06/28/25 08:03 Hct 33.9 % (42.0-52.0) L 06/28/25 08:03 MCV 90.9 fL (80.0-98.0) 06/28/25 08:03 MCH 30.6 pg (27.0-33.0) 06/28/25 08:03 MCHC 33.6 g/dl (31.0-36.0) 06/28/25 08:03 RDW 15.8 % (11.0-16.0) 06/28/25 08:03 Plt Count 188 X10*3/uL (160-400) 06/28/25 08:03 MPV 9.2 fL (9.4-12.4) L 06/28/25 08:03 Absolute Nucleated RBC 0.000 X10*3/uL (0.0-0.012) 06/28/25 08:03 Nucleated RBC % (auto) 0.0 /100WBC (0.0-0.2) 06/28/25 08:03 Sodium 146 mmol/L (135-145) H 06/28/25 08:03 Potassium 4.3 mmol/L (3.3-5.1) 06/28/25 08:03 Chloride 108 mmol/L (96-108) 06/28/25 08:03 Carbon Dioxide 31 mmol/L (22-29) H 06/28/25 08:03 Anion Gap 11 (12-20) L 06/28/25 08:03 BUN 23 mg/dL (9-16) H 06/28/25 08:03 Creatinine 0.77 mg/dL (0.5-1.4) 06/28/25 08:03 Estim Creat Clear Calc TNP 06/28/25 08:03 Estimated GFR > 60 06/28/25 08:03 Random Glucose 125 mg/dL (60-115) H 06/28/25 08:03 Calcium 8.7 mg/dL (8.4-10.2) 06/28/25 08:03 Valproic Acid 13.2 mcg/mL (50.0-100.0) L 06/28/25 13:42 Discharge Plan Discharge Patient Disposition: Xfer Psychiatric Hosp Discharge Diagnosis: obstructive sleep apnea Referrals: Physician,Unknown J [Primary Care Provider, Medical] - 1 Week Discharge Medications: Continued atorvastatin 20 mg tablet 20 mg feeding tube DAILY clozapine 100 mg tablet 200 mg feeding tube BEDTIME clozapine 25 mg tablet 25 mg feeding tube QAM haloperidol 1 mg Tablet 1 mg feeding tube QAM haloperidol 1 mg Tablet 3 mg feeding tube BEDTIME famotidine 20 mg tablet 20 mg feeding tube BID gabapentin 100 mg capsule 300 mg feeding tube BEDTIME gabapentin 100 mg capsule 100 mg feeding tube QAM tamsulosin 0.4 mg capsule 0.4 mg PO BEDTIME trazodone 150 mg tablet 150 mg feeding tube BEDTIME valproic acid (as sodium salt) 250 mg/5 mL Solution 500 mg feeding tube BID ramelteon 8 mg Tablet 8 mg PO BEDTIME polyethylene glycol 3350 [Miralax] 17 gram Powder In Packet 17 g feeding tube BID lactulose 10 gram/15 mL Solution 20 g IA BID haloperidol 2 mg Tablet 2 mg feeding tube BID PRN (Reason: Agitation) multivitamin with minerals Liquid 15 ml feeding tube DAILY lidocaine 4 % Adhesive Patch,Medicated 1 patch TOPICAL DAILY enoxaparin 40 mg/0.4 mL Syringe 40 mg SUBCUT DAILY acetaminophen 500 mg Tablet 1,000 mg feeding tube TID simethicone 80 mg Tablet,Chewable 80 mg PO Q6H PRN (Reason: Dyspepsia) ipratropium-albuterol 0.5 mg-3 mg(2.5 mg base)/3 mL Solution For Nebulization 3 ml INHALATION Q4H PRN (Reason: Shortness Of Breath) bisacodyl 10 mg Suppository 10 mg IA DAILY PRN (Reason: Constipation) guaifenesin 100 mg/5 mL Liquid 200 mg feeding tube Q4H PRN (Reason: Cough) diclofenac sodium 1 % Gel 2 g TOPICAL QID PRN (Reason: Pain) Rx Instructions: apply to single elbow, wrist or hand; for hand includes palm/fingers/back of hand calcium carbonate 500 mg calcium (1,250 mg) Tablet,Chewable 1,000 mg feeding tube TID PRN (Reason: Heartburn) ipratropium-albuterol 0.5 mg-3 mg(2.5 mg base)/3 mL Solution For Nebulization 3 ml inhalation RQ4H WHILE AWAKE PRN (Reason: sob) Qty: 0 0RF Discharge Orders: Discharge Order (Routine); Ordered 06/30/25 Ordered By: Robi Ray Diet: tube feeding diet, NPO Activity on Discharge: As tolerated Stand Alone Forms: Patient Portal Discharge page Print Language: Malawian Care Plan Goals: treat LOUANN prevent aspiration Health Concerns: obstructive sleep apnea chronic aspiration s/p PEG tube Plan of Treatment: transfer to inpatient psychiatry; resume prior medication regimen CPAP 5-20 cm auto mode at night Tube feeding diet: Vital 1.5, run at 85 mL/hr from 6596-4904 daily Water flush of 240 mL every 4 hours NPO. TUBING MACHINE TENDER at [facility] had recommended comfort feeding but this should be allowed only if patient fully understands the risks involved. Assessment: See Discharge Summary.
--- NOTE | 2025-06-30 11:41 | MHC.CM.PN ---
Pt is medically cleared for discharge, awaiting inpatient psych bed placement.
[2025-07-03 21:38] LABS: Clozapine (Clozaril) 319 mcg/L
== END 2025-06-30 15:43 | DRG 156 ==
LOC: HO.EDOVER 02:01 → HO.IMC 02:41
PROVIDERS: Admitting Provider Internal Medicine; Visit Provider Family Medicine
DX: G47.33 Obstructive sleep apnea (adult) (pediatric) (principal); F20.9 Schizophrenia, unspecified; J45.909 Unspecified asthma, uncomplicated; R13.10 Dysphagia, unspecified; E78.5 Hyperlipidemia, unspecified; K59.00 Constipation, unspecified; I25.10 Atherosclerotic heart disease of native coronary artery without angina pectoris; K21.9 Gastro-esophageal reflux disease without esophagitis; N40.0 Benign prostatic hyperplasia without lower urinary tract symptoms; Z79.899 Other long term (current) drug therapy
CPT/HCPCS: 36415; 80048; 80159; 80164; 85027; 94640; 94660; J1171; J1650; S9485

== ENCOUNTER → 2025-06-28 01:52 | Outpatient (BNV) | payer MEDICARE, SELFPAY | PROVIDERS: Admitting Provider Internal Medicine; Visit Provider Psychiatry & Neurology Psychiatry | DX: F20.9 Schizophrenia, unspecified (principal) | CPT/HCPCS: 99221; 99238 ==

== ENCOUNTER → 2025-06-28 01:52 | Outpatient (BNV) | payer MEDICARE, SELFPAY | PROVIDERS: Admitting Provider Internal Medicine; Visit Provider Internal Medicine | DX: R13.10 Dysphagia, unspecified (principal); F20.9 Schizophrenia, unspecified; T17.908A Unspecified foreign body in respiratory tract, part unspecified causing other injury, initial encounter; Z78.9 Other specified health status; G47.33 Obstructive sleep apnea (adult) (pediatric) | CPT/HCPCS: 99232; 99239 ==

== ENCOUNTER 2025-06-30 14:20 | Outpatient (BNV) | payer MEDICARE, SELFPAY | END 2025-07-22 08:59 | PROVIDERS: Admitting Provider Social Worker; Visit Provider Radiology Diagnostic Radiology | DX: J69.0 Pneumonitis due to inhalation of food and vomit (principal); M19.011 Primary osteoarthritis, right shoulder | CPT/HCPCS: 71250 ==

== ENCOUNTER 2025-06-30 14:20 | Inpatient (IN) | payer MEDICARE, SELFPAY ==
--- OUTSIDE RECORDS SUMMARY | 2025-04-15 18:17 | XMS_ITS | Encounter Summary ---
Author Organization Kaylin [facility] jacques Address [address] [place] [id number] Care Team Providers Care Minister Assistant Name Role Phone Kilo Huynh Jr. Primary Care Provid er Reason for Referral * (Routine) - Pending Review Specialty Diagnoses / Procedures Referred By Contac t Referred To Contact Procedures Reason for not prescribing emergency opioid antagonists on discharge Mariano Crabtree MD [address] [place] [address] Phone: tel: fax: Referral ID Status Reason Start Date Expiration Date V isits Requested Visits Authorized [id number] Pending Review 06/25/2025 09/18/2026 1 1 * (Routine) - Pending Review Specialty Diagnoses / Procedures Referred By Contac t Referred To Contact Procedures Diets for dysphagia (difficulty in swallowing): Mariano Crabtree MD [address] [place] [address] Phone: tel: fax: Referral ID Status Reason Start Date Expiration Date V isits Requested Visits Authorized [id number] Pending Review 06/25/2025 09/18/2026 1 1 * Invasive Imaging (Routine) - New Request Specialty Diagnoses / Procedures Referred By Contac t Referred To Contact Radiology Diagnoses Aspiration pneumonitis (HCC) Procedures IR Follow-Up Appointment Mohinder Johnson MD [address] [place] [address] Phone: tel: fax: Referral ID Status Reason Start Date Expiration Date V isits Requested Visits Authorized [id number] New Request 08/12/2025 11/05/2026 1 1 * Invasive Imaging (Routine) - New Request Specialty Diagnoses / Procedures Referred By Ammy hansen Referred To Contact Radiology Diagnoses Aspiration into airway, sequela Procedures IR Follow-Up Appointment Mohinder Johnson MD [address] [place] [address] Phone: tel: fax: Referral ID Status Reason Start Date Expiration Date V isits Requested Visits Authorized [id number] New Request 05/12/2025 08/05/2026 1 1 Reason for Visit * Reason Comments Altered Mental Status * Auth/Cert (Routine) Specialty Diagnoses / Procedures Referred By mAmy hansen Referred To Contact Diagnoses Observation and evaluation for suspected conditions not found Procedures [facility] IP/OBS CARE HIGH MDM 75 MINUTES Referral ID Status Reason Start Date Expiration Date Visits Re quested Visits Authorized [id number] 1 1 Encounter Details Date Type Department Care Team (Latest Contact Info) Description 04/15/2025 6:17 PM EDT - 06/25/2025 7:33 PM EDT Hospital Encounter [facility] [address] [place] [address] Dane Caldwell MD [address] [place] [address] Enzo Bonner MD [address] [place] [address] Lela Martinez MD [address] [place] [address] Rachelle Randall MD [address] [place] [address] Carter Cerda MD [address] /[address] [address] Chuy Hernandez MD [address] [place] [address] Bonifacio Agudelo MD [address] [place] [address] Jono Aviles MD [address] [place] [address] Mildred Srinivasan MD [address] [place] [address] Mohinder Johnson MD [address] [place] [address] oNe Carranza MD [address] [place] [address] Imelda Xie MD [address] [place] [address] Rabia Velasco MD [address] [place] [address] [id number] Urban Mondragon MD [address] [place] [address] Quan Coates MD [address] [place] [address] Mariano Maloney MD [address] [place], [place] Feliciano Choi MD [address] [place], [place] Govind Olivo MD [address] [facility] W/Span 2 [place], [place] Param Abdi MD [address] [facility] W/SPAN-2 [place], [place] Mariano Crabtree MD [address], [place] Altered mental status, unspecified altered mental status type (Primary Dx); Tachycardia; Unclassified epileptic seizures (HCC); Chest pain, unspecified type; Schizoaffective disorder, depressive type (HCC); Aspiration into airway, sequela; Aspiration pneumonitis (HCC); MCC current use of therapeutic drug; Abnormal electrocardiography [...] the Last Year Not on file [address] 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 IR Follow-Up Appointment Needs routine exchange in [...] Consider starting BP medication. [] Re-evaluation with ADVERTISING MANAGER once he has had increased improvement in [...] he was medically stable and accepted at [facility] for continued psychiatric care and support. [...] was able to work with PT and ADVERTISING MANAGER. However, at the same time he also [...] and SI. He was a ccepted to [facility] on 06/25. # Oropharyngeal Dysphagia with [...] improvements in mental status, could re- consider ADVERTISING MANAGER and video swallow. Discussion with HCP that he hopes Carter will be eventually able to transition from the G tube back to PO after swallow therapy. ADVERTISING MANAGER conversation 06/11 with barium swallow - still aspirating but improvement from prior. Per ADVERTISING MANAGER onreview of his long history of dysphagia [...] [facility]. Multiple consistencies [...] a standalone note by the Speech-Language Pathologist ([facility], Notes, Speech Pathology). BY ELECTRONICALLY SIGNING THIS [...] Anabel Melchor MD Internal Medicine PGY-2 Pager: [phone] [1] Medications Prior to Admission Medication Sig [...] medically stable and will be discharged to [facility] geriatric psychiatry unit. is clinically stable for discharge. The total time spent on discharge planning, counseling, and coordination of care was greater than 30 minutes. Remainder of plan per resident note. Mariano Crabtree M.D. Chief Bookkeeping Manager. Ac Forman Clinical Fellow. Department of Infectious [...] taking part in your care here at [facility]! Why was I admitted to the hospital? [...] emergency department if you experience: Sincerely, Your [facility] Care Team documented in this encounter Medications [...] risk reduction [x]Discharge recommendations [x]Mobility Recommendations []Other: []Powder Coater utilized for session Team Communication: Communicated with [...] participate in the rehabilitation program: Yes Time: 0541-5164 Physical Therapist Name: DEMETRA HAWKINS PT Physical Therapist Pager: [phone] License #: [id number] * Demetra White RN - 06/25/2025 3:45 PM EDT Case Management - Progress Note Patient: Carter Raymundo : 1955 Attending: Mariano Crabtree MD Admit Date: 04/15/2025 Inpatient Status Admit Date: 04/16/25 Primary Care Physician: Kilo Huynh Discussed at [facility]. Section 12. 1:1. MANJIT: Pending IP Cheli Psych Bed: On bed search list. Dispo: Inpatient psych hospital/unit; spoke with [facility] psych admissions bed search team; [facility] is currently reviewing patient's clinicals. State that continued progression with PT/OT may create more bed offers. CM to continue to follow. Demetra White RN 06/25/2025 * Kymberly Mata MD - 06/25/2025 2:55 PM EDT [facility] PSYCHIATRIC CONSULTATION FOLLOW-UP CHIEF COMPLAINT: Psych f/u [...] a well-known poet to visit him at [facility] if he is placed there. He endorses [...] disposition planning. He stopped the bed at [facility] due to prolonged inpatient admission. We reviewed [...] knowledge: intact to interview Language: fluent in Grenadian Mental Status: Appearance: appropriately groomed, dressed in [...] 101 BPM Atrial Heart Rate 101 BPM VT Interval 142 ms QRSD Interval 98 ms QT Interval 376 ms QTC Interval 487 ms P Rosedale 43 degrees R Rosedale -26 degrees T Wave Rosedale 56 degrees Narrative Sinus tachycardia Moderate voltage [...] injection 40 mg 40 mg Subcutaneous Q24H [facility] Juliet Becerra MD 40 mg at famotidine [...] (NS) 0.9% flush 3 mL Intravenous Q12H [facility] Peña Salas MD 3 mLat 06/02/252035 And [...] Zaman MD - 06/25/2025 6:56 AM EDT [facility] Medicine Progress Note Patient: Carter Raymundo Admission [...] was able to work with PT and ADVERTISING MANAGER. However, at the same time he also [...] with improvements in mental status, could re-consider ADVERTISING MANAGER and video swallow. Discussion with HCP that he hopes Carter will be eventually able to transition from the G tube back to PO after swallow therapy. ADVERTISING MANAGER conversation 06/11 with barium swallow - still aspirating but improvement from prior. Per ADVERTISING MANAGER on review of his long history of [...] thin liquids - guanfenasin PRN - re-engage ADVERTISING MANAGER today #Leg pain/weakness # History of L4-L5 [...] Full Code - Contact/HCP: brother Delvin Raymundo [phone] Patient Contacts Name Legal Rel Relationship Phone Active Delvin Raymundo Health Care Agent Brother Yes - Disposition: -- Anticipated discharge to: rehab vs psych facility -- Anticipated discharge date: 07/01 -- Anticipated discharge barriers: psych stabilization, working with PT Extended Emergency Contact Information Primary Emergency Contact: PepitosteveDelvin Mobile Relation: Brother Powder Coater needed? No Nyla Zaman MD PGY-1 Dept [...] to review of data inelectronic medical record, [id number] evaluation, documentation, and coordination of care. Mariano Crabtree M.D. Chief Bookkeeping Manager. Ac Forman Clinical Fellow. Department of Infectious Diseases * Kymberly Mata MD - 06/24/2025 4:47 PM EDT [facility] PSYCHIATRIC CONSULTATION FOLLOW-UP CHIEF COMPLAINT: INTERVAL HPI: [...] constipation. He is hopeful for hospitalization at [facility] for ongoing treatment. He is able to [...] knowledge: intact to interview Language: fluent in Grenadian Mental Status: Appearance: appropriately groomed, dressed in [...] 101 BPM Atrial Heart Rate 101 BPM VT Interval 142 ms QRSD Interval 98 ms QT Interval 376 ms QTC Interval 487 ms P [place] 43 degrees R Rosedale -26 degrees T Wave [place] 56 degrees Narrative Sinus tachycardia Moderate voltage [...] risk reduction [x]Discharge recommendations [x]Mobility Recommendations []Other: []Powder Coater utilized for session Team Communication: Communicated with [...] functional baseline, he will require discharge to [facility] once medically stable. Treatment Plan: Therapeutic Activities/Functional Training Patient agrees with the above goals and is willing to participate in the rehabilitation program: Yes Time: 6790-1921 Physical Therapist Name: Felipa Petit PT Physical Therapist Pager: [phone] Physical Therapist License #: [id number] * Rachelle Condon OT - 06/24/2025 1:00 [...] [] [x]PT (co-treat) []CM RE: Patient status []Powder Coater utilized for session Intervention: Patient/Caregiver Education RE: [...] participate in the rehabilitation program: Yes Time: 2804-8130 Occupational Therapist Name: Rachelle Condon OT Occupational Therapist Pager: [phone] License #: [id number] * Nyla Zaman MD - 06/24/2025 7:15 AM EDT [facility] Medicine Progress Note Patient: Carter Raymundo Admission [...] about G-tube and requesting to work with ADVERTISING MANAGER as he wants to get it removed. Told patient we want to be careful with his swallowing, and he was agreeable to continue to work with ADVERTISING MANAGER. He otherwise denies any acute concerns. Denies [...] was able to work with PT and ADVERTISING MANAGER. However, at the same time he also [...] with improvements in mental status, could re-consider ADVERTISING MANAGER and video swallow. Discussion with HCP that he hopes Carter will be eventually able to transition from the G tube back to PO after swallow therapy. ADVERTISING MANAGER conversation 06/11 with barium swallow - still aspirating but improvement from prior. Per ADVERTISING MANAGER on review of his long history of [...] thin liquids - guanfenasin PRN - re-engage ADVERTISING MANAGER today #Leg pain/weakness # History of L4-L5 [...] Full Code - Contact/HCP: brother Delvin Raymundo [phone] Patient Contacts Name Legal Rel Relationship Phone Active Delvin Raymundo Health Care Agent Brother Yes - Disposition: -- Anticipated discharge to: Acute rehab facility -- Anticipated discharge date: 06/28 -- Anticipated discharge barriers: psych stabilization Extended Emergency Contact Information Primary Emergency Contact: Delvin Raymundo Mobile Relation: Brother Powder Coater needed? No Nyla Zaman MD PGY-1 Dept [...] oral intake, we will reach out to ADVERTISING MANAGER for repeat evaluation, and discuss with psychiatry regarding placement. I spent 44 minutes in total on this encounter today, including but not limited to review of data inelectronic medical record, spxp-zi-wyzo evaluation, documentation, and coordination of care. Mariano Crabtree M.D. Chief Bookkeeping Manager. Ac Forman Clinical Fellow. Department of Infectious [...] tube feed cont to be cycled as [id number], voiding via male purewick, slept well overnight [...] participate in the rehabilitation program: Yes Time: 0752-1435 Physical Therapist Name: Yogi Blevins PT Physical Therapist Pager: [phone] License #: [id number] * Nyla Zaman MD - 06/23/2025 6:52 AM EDT [facility] Medicine Progress Note Patient: Carter Raymundo Admission [...] appropriate. LABS, MICROBIOLOGY and STUDIES reviewed in [facility]. ASSESSMENT & PLAN 70 y.o. male with [...] was able to work with PT and ADVERTISING MANAGER. However, at the same time he also [...] with improvements in mental status, could re-consider ADVERTISING MANAGER and video swallow. Discussion with HCP that he hopes Carter will be eventually able to transition from the G tube back to PO after swallow therapy. ADVERTISING MANAGER conversation 06/11 with barium swallow - still aspirating but improvement from prior. Per ADVERTISING MANAGER on review of his long history of [...] Full Code - Contact/HCP: brother Delvin Raymundo [phone] - Dispo: [facility]li-psych placement, trial with PT Patient Contacts Name Legal Rel Relationship Phone Active Delvin Raymundo Health Care Agent Brother Yes - Disposition: -- Anticipated discharge to: Acute rehab facility vs psych -- Anticipated discharge date: 06/27 -- Anticipated discharge barriers: pending psych stabilization Extended Emergency Contact Information Primary Emergency Contact: Delvin Raymundo Mobile Relation: Brother Powder Coater needed? No Nyla Zaman MD PGY-1 Dept [...] to review of data inelectronic medical record, [id number]-[id number] evaluation, documentation, and coordination of care. Mariano Crabtree M.D. Chief Bookkeeping Manager. Ac Forman Clinical Fellow. Department of Infectious Diseases * Demetra Chittenden, PT - 06/22/2025 9:44 AM EDT PHYSICAL [...] risk reduction [x]Discharge recommendations [x]Mobility Recommendations []Other: []Powder Coater utilized for session Team Communication: Communicated with [...] participate in the rehabilitation program: Yes Time: 362-532 Physical Therapist Name: DEMETRA HAWKINS PT Physical Therapist Pager: [phone] License #: [id number] * Nyla Zaman MD - 06/22/2025 6:47 AM EDT Images from the original note were not included. [facility] Department of Medicine [facility] Medicine Progress Note Patient: Carter Raymundo Admission [...] Improving. LABS, MICROBIOLOGY and STUDIES reviewed in [facility]. ASSESSMENT & PLAN 70 y.o. male with [...] was able to work with PT and ADVERTISING MANAGER. However, at the same time he also [...] with improvements in mental status, could re-consider ADVERTISING MANAGER and video swallow. Discussion with HCP that he hopes Carter will be eventually able to transition from the G tube back to PO after swallow therapy. ADVERTISING MANAGER conversation 06/11 with barium swallow - still aspirating but improvement from prior. Per ADVERTISING MANAGER on review of his long history of [...] Full Code - Contact/HCP: brother Delvin Raymundo [phone] - Dispo: cheli-psych placement, trial with PT Patient Contacts Name Legal Rel Relationship Phone Active Delvin Raymundo Health Care Agent Brother Yes - Disposition: -- Anticipated discharge to: Acute rehab facility -- Anticipated discharge date: 07/01 -- Anticipated discharge barriers: needs to be off 1:1 for rehab Extended Emergency Contact Information Primary Emergency Contact: Delvin Raymundo Mobile Relation: Brother Powder Coater needed? No Nyla Zaman MD Dept of [...] MD Attending Physician Section of Hospital Medicine [facility] * Анна Anguiano MD - 06/21/2025 12:42 PM EDT Images from the original note were not included. [facility] PSYCHIATRIC CONSULTATION FOLLOW-UP CHIEF COMPLAINT: I've been driven to suicidality today INTERVAL HPI: Met with patient at bedside. He reports an upsetting conversation with a medical center representative today, in which he felt she was [...] knowledge: intact to interview Language: fluent in Grenadian Mental Status: Appearance: tearful, writing on several [...] and emphasized preference to be admitted to [facility]. Patient did not appear delirious at the time of interview. DSM-5 DIAGNOSIS: Schizoaffective disorder RECOMMENDATIONS: - Please continue 1:1 sitter - Patient meets section 12 criteria and cannot leave AMA -Rest of recommendations as per Dr. Rivas's note Анна Anguiano MD PGY4 Psychiatry [id number] * Anabel Melchor MD - 06/21/2025 6:19 AM EDT [facility] Medicine Progress Note Patient: Carter Raymundo ( [...] was able to work with PT and ADVERTISING MANAGER. However, at the same time he also [...] with improvements in mental status, could re-consider ADVERTISING MANAGER and video swallow. Discussion with HCP that he hopes Carter will be eventually able to transition from the G tube back to PO after swallow therapy. ADVERTISING MANAGER conversation 06/11 with barium swallow - still aspirating but improvement from prior. Per ADVERTISING MANAGER on review of his long history of [...] Full Code - Contact/HCP: brother Delvin Raymundo [phone] - Dispo: cheli-psych placement, trial with PT [...] MD Attending Physician Section of Hospital Medicine [facility] * Patricia Holden MD - 06/20/2025 10:09 AM EDT [facility] Medicine Progress Note Patient: Carter Raymundo ( [...] uids. He is hopeful to do further ADVERTISING MANAGER therapy in the future to work on [...] was able to work with PT and ADVERTISING MANAGER. However, at the same time he also [...] with improvements in mental status, could re-consider ADVERTISING MANAGER and video swallow. Discussion with HCP that he hopes Carter will be eventually able to transition from the G tube back to PO after swallow therapy. ADVERTISING MANAGER conversation 06/11 with barium swallow - still aspirating but improvement from prior. Per ADVERTISING MANAGER on review of his long history of [...] Full Code - Contact/HCP: brother Delvin Raymundo [phone] - Dispo: cheli-psych placement, trial with PT [...] MD Attending Physician Section of Hospital Medicine [facility] * Madelyn Bailey RN - 06/20/2025 3:51 [...] []MD [x]PT (co-treat) []CM RE: Patient status []Powder Coater utilized for session Intervention: Patient/Caregiver Education RE: [...] participate in the rehabilitation program: Yes Time: 3549-8966 Occupational Therapist Name: Rachelle Condon OT Occupational Therapist Pager: [phone] License #: [id number] * Demetra Hawkins, PT - 06/19/2025 3:02 [...] risk reduction [x]Discharge recommendations [x]Mobility Recommendations []Other: []Powder Coater utilized for session Team Communication: Communicated with [...] participate in the rehabilitation program: Yes Time: 2172-3154 Physical Therapist Name: DEMETRA HAWKINS PT Physical Therapist Pager: [phone] License #: [id number] * Nicole Ramirez - 06/19/2025 9:15 AM [...] Exam: Deferred. ASSESSMENT: Estimated Nutrition Needs: Calories: 7041-2606 kcal (25-30 kcal/kg) Protein: 85-106 g (1.2-1.5 g/kg) Fluids: 4798-7108 mL (25-30 mL/kg) Estimated Needs Calculated Usin.9 [...] continue to follow, please message or page [phone] with any questions/concerns Signed by: Nicole Ramirez, MS, RD, LDN 06/19/25 9:15 AM * Patricia Holden MD - 06/19/2025 7:46 AM EDT [facility] Medicine Progress Note Patient: Carter Raymundo ( [...] was able to work with PT and ADVERTISING MANAGER. However, at the same time he also [...] with improvements in mental status, could re-consider ADVERTISING MANAGER and video swallow. Discussion with HCP that he hopes Carter will be eventually able to transition from the G tube back to PO after swallow therapy. ADVERTISING MANAGER conversation 06/11 with barium swallow - still aspirating but improvement from prior. Per ADVERTISING MANAGER on review of his long history of [...] Full Code - Contact/HCP: brother Delvin Raymundo [phone] - Dispo: cheli-psych placement, trial with PT [...] of , Month, Year, City, Name of [facility] Disoriented to: Day Following Directions: Follows [...] [x]RN []MD [x]PT []CM RE: Patient status []Powder Coater utilized for session Intervention: Patient/Caregiver Education RE: [...] participate in the rehabilitation program: Yes Time: 7444-7404 Occupational Therapist Name: Rachelle Condon OT Occupational Therapist Pager: [phone] License #: [id number] * Luiza Barone, PT - 06/18/2025 5:12 [...] status [x]Patient discussed at interdisciplinary team rounds. []Powder Coater utilized for session Pt left seated with [...] participate in the rehabilitation program: Yes Time: 7108-4832 Physical Therapy License #[id number] Physical Therapist Name: Luiza Barone, PT Physical Therapist Pager: [phone] * Kimani Rivas MD - 06/18/2025 9:59 AM EDT Images from the original note were not included. [facility] PSYCHIATRIC CONSULTATION FOLLOW-UP NOTE INTERVAL HPI: -NAEON Patient reports feeling well despite recent circumstances. Has somatic concerns regarding left leg,states that he believes it is related to neuropathy. He is looking forward to working with PT today. He acknowledges he needs to get stronger for inpatient psychiatry. He expresses a preference for [facility]. He reports still working on his poetry, [...] course remains positive. Appreciate collateral from terminal superintendent outpatient psychologist to determine baseline personality and [...] If CL Psychiatry is needed, please contact [phone] for overnight or weekend psychiatric emergencies. Case [...] Holden MD - 06/18/2025 7:36 AM EDT [facility] Medicine Progress Note Patient: Carter Raymundo ( , 1955) Admission Date: 04/15/2025 PCP: Kilo Reyes Jr [facility] Inpatient Attending: Govind Olivo MD INTERVAL [...] unresponsiveness events; stroke and seizure workup negative ([facility], MRI brain, EEG). Likely acute delirium on background of decompensated schizoaffective disorder. Psychiatry managing clozapine titration and adjuncts; haloperidol for augmentation and agitation. Meets Section 12 criteria. Week of 06/08 marked improvement in his alertness, insight, ability to communicate with the team, memory and self awareness and was able to work with PT and ADVERTISING MANAGER. However, at the same time he also [...] bed search, verify what level of independence [facility] would require for him to be [...] with improvements in mental status, could re-consider ADVERTISING MANAGER and video swallow. Discussion with HCP that he hopes Carter will be eventually able to transition from the G tube back to PO after swallow therapy. ADVERTISING MANAGER conversation 06/11 with barium swallow - still aspirating but improvement from prior. 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 SW engaged in active listening and empathetic presence. Pt identifies no acute psychosocial needs. SW remains available for support. Please page with questions or concerns. Agustina Garcia LCSW [phone] * Neda Smith, PT - 06/17/2025 12:27 [...] risk reduction []Discharge recommendations [x]Mobility Recommendations []Other: []Powder Coater utilized for session Team Communication: Communicated with [...] participate in the rehabilitation program: Yes Time: 2757-7801 Physical Therapist Name: Neda Smith PT, DPT Physical Therapist Pager: [phone] License #[id number] * Rachelle Condon OT - 06/17/2025 11:28 [...] []MD [x]PT (co-treat) []CM RE: Patient status []Powder Coater utilized for session Intervention: Patient/Caregiver Education RE: [...] participate in the rehabilitation program: Yes Time: 6672-8504 Occupational Therapist Name: Rachelle Condon OT Occupational Therapist Pager: [phone] License #: [id number] * Patricia Holden MD - 06/17/2025 7:34 AM EDT [facility] Medicine Progress Note Patient: Carter Raymundo ( [...] was able to work with PT and ADVERTISING MANAGER. However, at the same time he also [...] bed search, verify what level of independence [facility] would require for him to be [...] with improvements in mental status, could re-consider ADVERTISING MANAGER and video swallow. Discussion with HCP that he hopes Carter will be eventually able to transition from the G tube back to PO after swallow therapy. ADVERTISING MANAGER conversation 06/11 with barium swallow - still aspirating but improvement from prior. 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 However, at the same time he also [...] with improvements in mental status, could re-consider ADVERTISING MANAGER and video swallow. Discussion with HCP that he hopes Carter will be eventually able to transition from the G tube back to PO after swallow therapy. ADVERTISING MANAGER conversation 06/11 with barium swallow - still aspirating but improvement from prior. Per ADVERTISING MANAGER on review of his long history of [...] Full Code - Contact/HCP: brother Delvin Raymundo [phone] - Dispo: cheli-psych placement, trial with PT [...] risk reduction [x]Discharge recommendations [x]Mobility Recommendations []Other: []Powder Coater utilized for session Team Communication: Communicated with [...] participate in the rehabilitation program: Yes Time: 1276-8029 Physical Therapist Name: DEMETRA HAWKINS PT Physical Therapist Pager: [phone] License #: [id number] * Vanessa Reyes RD - 06/15/2025 9:55 [...] in interview ASSESSMENT: Estimated Nutrition Needs: Calories: 8378-5723 kcal (25-30 kcal/kg) Protein: 85-106 g (1.2-1.5 g/kg) Fluids: 9185-6330 mL (25-30 mL/kg) Estimated Needs Calculated Usin.9 [...] Lytes WNL. Interventions / Recommendations: Diet per ADVERTISING MANAGER/team EN recommendations: Switch to standard fiber-containing formula [...] continue to follow, please message or page [phone] with any questions/concerns Signed by: Vanessa Reyes RD 06/15/25 9:55 AM * Demetra White RN - 06/15/2025 9:36 AM EDT Case Management - Progress Note Patient: Carter Raymundo : 1955 Attending: Govind Olivo MD Admit Date: 04/15/2025 Inpatient Status Admit Date: 04/16/25 Primary Care Physician: Kilo Huynh Discussed at [facility]. Section 12. 1:1. MANJIT: Pending IP Cheli Psych Bed: On bed search list Dispo: Inpatient psych hospital/unit CM to continue to follow. Demetra White RN 06/15/2025 * Kimani Rivas MD - 06/15/2025 9:17 AM EDT Images from the original note were not included. [facility] PSYCHIATRIC CONSULTATION FOLLOW-UP NOTE INTERVAL HPI: -NAEON [...] outpatient psychologist of 45 years, per chart: [phone], per online search: [phone]. Left with callback at both numbers provided Dr. José Miguel Jefferson returned call at [phone]: Dr. Jefferson was in contact with patient [...] difficult for him. 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 Recent surgical operations have [...] remains generally positive. Appreciate collateral from terminal superintendent outpatient psychologist to determine baseline personality and [...] If CL Psychiatry is needed, please contact [phone] for overnight or weekend psychiatric emergencies. Case [...] creative works that will be better than [employer]. Denied any wishes, SI/HI, and AH/VH. Non-pressured speech.No acute thought or behavioral disorganization. No excessive psychomotor activity or agitation. Cognitively, oriented to person, [facility], [place], June 14, Sunday, 2024, and superficially to [...] per resident note below. Saundra Soliman MD Supervisor [employer], [facility] Psychiatric Consultation-Liaison Service Pager [phone] ([phone] for urgent questions and on nights/weekends/holidays) * Patricia Holden MD - 06/15/2025 7:25 AM EDT [facility] Medicine Progress Note Patient: Carter Raymundo ( [...] be very interested in going to [facility]. De-escalated labs today. OBJECTIVE Vitals: T [...] was able to work with PT and ADVERTISING MANAGER. However, at the same time he also [...] with improvements in mental status, could re-consider ADVERTISING MANAGER and video swallow. Discussion with HCP that he hopes Carter will be eventually able to transition from the G tube back to PO after swallow therapy. ADVERTISING MANAGER conversation 06/11 with barium swallow - still aspirating but improvement from prior. Per ADVERTISING MANAGER on review of his long history of [...] Full Code - Contact/HCP: brother Delvin Raymundo [phone] - Dispo: cheli-psych placement, trial with PT [...] MD PhD - 06/14/2025 5:57 AM EDT [facility] Medicine Progress Note Patient: Carter Raymundo ( [...] with improvements in mental status, could re-consider ADVERTISING MANAGER and video swallow. Discussion with HCP that he hopes Carter will be eventually able to transition from the G tube back to PO after swallow therapy. ADVERTISING MANAGER conversation 06/11 - still aspirating but improvement from prior. Will always be at risk for aspiration and unlikely to meet nutritional needs jovan full PO diet. Per ADVERTISING MANAGER, reasonable for PO for pleasure, with the [...] with oral hygiene before and after. - ADVERTISING MANAGER modified barium swallow 06/11. # Constipation / [...] Full Code - Contact/HCP: brother Delvin Raymundo [phone] - Dispo: cheli-psych placement, trial with PT [...] s/p G-tube on TF who presented to [facility] on 04/15 with unresponsiveness, aphasia, and concern [...] Feliciano Choi MD Section of Hospital Medicine [facility] * Patricia Holden MD - 06/13/2025 4:14 PM EDT [facility] Medicine Progress Note Patient: Carter Raymundo ( [...] with improvements in mental status, could re-consider ADVERTISING MANAGER and video swallow. Discussion with HCP that he hopes Carter will be eventually able to transition from the G tube back to PO after swallow therapy. ADVERTISING MANAGER conversation 06/11 - still aspirating but improvement from prior. Will always be at risk for aspiration and unlikely to meet nutritional needs jovan full PO diet. Per ADVERTISING MANAGER, reasonable for PO for pleasure, with the [...] with oral hygiene before and after. - ADVERTISING MANAGER modified barium swallow 06/11. # Constipation / [...] Full Code - Contact/HCP: brother Delvin Raymundo [phone] - Dispo: cheli-psych placement, trial with PT [...] s/p G-tube on TF who presented to [facility] on 04/15 with unresponsiveness, aphasia, and concern [...] Feliciano Choi MD Section of Hospital Medicine [facility] * Demetra Hawkins, PT - 06/12/2025 5:18 [...] assistance, Minimal assistance, With assistive device (ModAx2 w/FORENSIC SCIENCE TECHNICIAN progressing to Mod+Min w.RW progressing to ModA [...] risk reduction [x]Discharge recommendations [x]Mobility Recommendations []Other: []Powder Coater utilized for session Team Communication: Communicated with [...] participate in the rehabilitation program: Yes Time: 6602-3888 Physical Therapist Name: DEMETRA HAWKINS PT Physical Therapist Pager: [phone] License #: [id number] * Payton Cramer, OT - 06/12/2025 4:47 [...] Function Vocational Status: 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 [facility] PSYCHIATRIC CONSULTATION FOLLOW-UP NOTE INTERVAL HPI: -NAEON [...] attempts to gain additional collateral from terminal superintendent outpatient psychologist to determine baseline personality and [...] PGY2 Psychiatric Consultation Liaison Service Please contact [phone] for overnight or weekend psychiatric emergencies. [1] [...] Holden MD - 06/12/2025 7:36 AM EDT [facility] Medicine Progress Note Patient: Carter Raymundo ( [...] with improvements in mental status, could re-consider ADVERTISING MANAGER and video swallow. Discussion with HCP that he hopes Carter will be eventually able to transition from the G tube back to PO after swallow therapy. ADVERTISING MANAGER conversation 06/11 - still aspirating but improvement from prior. Will always be at risk for aspiration and unlikely to meet nutritional needs jovan full PO diet. Per ADVERTISING MANAGER, reasonable for PO for pleasure, with the [...] with oral hygiene before and after. - ADVERTISING MANAGER modified barium swallow 06/11. # Constipation / [...] Full Code - Contact/HCP: brother Delvin Raymundo [phone] - Dispo: cheli-psych placement, trial with PT [...] s/p G-tube on TF who presented to [facility] on 04/15 with unresponsiveness, aphasia, and concern [...] Feliciano Choi MD Section of Hospital Medicine [facility] * Demetra Jenseniscoe, PT - 06/11/2025 4:14 [...] risk reduction [x]Discharge recommendations [x]Mobility Recommendations []Other: []Powder Coater utilized for session Team Communication: Communicated with [...] participate in the rehabilitation program: Yes Time: 1138-2021 Physical Therapist Name: DEMETRA HAWKINS PT Physical Therapist Pager: [phone] License #: [id number] * Kimani Rivas MD - 06/11/2025 1:58 PM EDT [facility] PSYCHIATRIC CONSULTATION FOLLOW-UP NOTE INTERVAL HPI: -NAEON -Nursing reports patient irritable, endorsing desire to speak with channel business manager of hospital Patient interviewed by attending [...] outpatient psychologist of 45 years, per chart: [phone], per online search: [phone]. Left with callback at both numbers provided [...] beneficial to gain additional collateral from terminal superintendent outpatient p sychologist to determine baseline personality [...] PGY2 Psychiatric Consultation Liaison Service Please contact [phone] for overnight or weekend psychiatric emergencies. Case [...] inpatient level of care. * Nedra Rader, CCC-ADVERTISING MANAGER - 06/11/2025 1:09 PM EDT OROPHARYNGEAL VIDEOFLUOROSCOPIC SWALLOWING EVALUATION Date of Admission: 04/15/2025 Referring Provider: Patricia Holden MD Preferred Language: Grenadian Powder Coater: none required History The patient is a [...] Thin Liquid], mildly thick (nectar) liquid [Varibar [place]], puree [Varibar Pudding], and alisa cracker coated [...] (1996). A penetration-aspiration scale. Dysphagia, 11(2), 93-98. https://doi.org/10.1007/MW28402702) 1.Consistency: thin liquids Max PAS:8: Contrast enters [...] is a chronic dysphagia without acute exacerbation, ADVERTISING MANAGER to sign off at this time. Diet orderand advancement to PO for pleasure at provider discretion. Please do not hesitate to reach out or reconsult ADVERTISING MANAGER for further or new questions/concerns. This swallowing [...] and the medical team, Nedra Rader MS [facility]-ADVERTISING MANAGER Speech Language Pathologist Pager #: [phone] Face Time: 1288-1686 Total Time: 60 min 06/11/25 [1] Allergies Allergen Reactions Morphine Itching Electronically signed by Nedra Rader MS [facility]-ADVERTISING MANAGER at 06/11/2025 2:22 PM EDT * Patricia Holden MD - 06/11/2025 11:13 AM EDT [facility] Medicine Progress Note Patient: Carter Raymundo ( , 1955) Admission Date: 04/15/2025 PCP: Kilo Reyes Jr [facility] Inpatient Attending: Feliciano Choi MD INTERVAL [...] slowly and well paced. The idea of ADVERTISING MANAGER swallow makes him anxious, but he is [...] with improvements in mental status, could re-consider ADVERTISING MANAGER and video swallow. Discussion with HCP that he hopes Carter will be eventually able to transition from the G tube back to PO after swallow therapy. - c/w overnight tube feeds; adjustments per nutrition. - NPO except for H2O with nursing 1:1 bedside. - ADVERTISING MANAGER modified barium swallow 06/11. # Constipation / [...] Full Code - Contact/HCP: brother Delvin Raymundo [phone] - Dispo: cheli-psych placement, trial with PT [...] s/p G-tube on TF who presented to [facility] on 04/15 with unresponsiveness, aphasia, and concern [...] Feliciano Choi MD Section of Hospital Medicine [facility] * Yogi Blevins, PT - 06/10/2025 6:20 [...] participate in the rehabilitation program: Yes Time: 1780-9159 Physical Therapist Name: Yogi Blevins PT Physical Therapist Pager: [phone] License #: [id number] * Patricia Holden MD - 06/10/2025 6:42 AM EDT [facility] Medicine Progress Note Patient: Carter Raymundo ( [...] with improvements in mental status, could re-consider ADVERTISING MANAGER and video swallow. Discussion with HCP that he hopes Carter will be eventually able to transition from the G tube back to PO after swallow therapy. - c/w overnight tube feeds; adjustments per nutrition. - NPO except for H2O with nursing 1:1 bedside. - ADVERTISING MANAGER consult if patient agreeable, limited by agitation/paranoia [...] Full Code - Contact/HCP: brother Delvin Raymundo [phone] - Dispo: cheli-psych placement, trial with PT [...] s/p G-tube on TF who presented to [facility] on 04/15 with unresponsiveness, aphasia, and concern [...] high risk for aspiration, continue to encourage ADVERTISING MANAGER evaluation with VFSS/FEES. Medically stable for inpatient geriatric psychiatry placement, within the confines of his mobility limitations. I spent 35 minutes in this clinical encounter reviewing the medical record, seeing and examining the patient, placing orders, writing notes, performing signout, and communicating with the applicable medical and nursing teams. Feliciano Choi MD Section of Hospital Medicine [facility] * Demetra Hawkins, PT - 06/09/2025 4:31 [...] risk reduction [x]Discharge recommendations [x]Mobility Recommendations []Other: []Powder Coater utilized for session Team Communication: Communicated with [...] participate in the rehabilitation program: Yes Time: 5534-7224 Physical Therapist Name: DEMETRA HAWKINS PT Physical Therapist Pager: [phone] License #: [id number] * Patricia Holden MD - 06/09/2025 6:51 AM EDT [facility] Medicine Progress Note Patient: Carter Raymundo ( [...] with improvements in mental status, could re-consider ADVERTISING MANAGER and video swallow. Discussion with HCP that he hopes Carter will be eventually able to transition from the G tube back to PO after swallow therapy. - c/w overnight tube feeds; adjustments per nutrition. - NPO except for H2O with nursing 1:1 bedside. - ADVERTISING MANAGER consult if patient agreeable, limited by agitation/paranoia [...] Full Code - Contact/HCP: brother Delvin Raymundo [phone] - Dispo: cheli-psych placement, trial with PT -- Patricia Holden MD Resident, Internal Medicine Cosigned by Feliciano Choi MD at 06/09/2025 5:10 PM EDT Associated attestation - Feliciano Choi MD - 06/09/2025 5:10 PM EDT I have seen and examined Mr. Raymundo, reviewed the findings and plan of care as documented by Patricia oHlden MD and agree, except for any additional comments below. 69M with a history of schizoaffective disorder c/b drug-induced parkinsonism, HTN, and oropharyngeal dysphagia s/p G-tube on TF who presented to [facility] on 04/15 with unresponsiveness, aphasia, and concern [...] insists that he work with an older ADVERTISING MANAGER (asking me to guarantee that they be [...] risk for aspiration, will continue to encourage ADVERTISING MANAGER evaluation with VFSS/FEES. I spent 45 minutes in this clinical encounter reviewing the medical record, seeing and examining the patient, placing orders, writing notes, performing signout, and communicating with the applicable medical and nursing teams. Feliciano Choi MD Section of Hospital Medicine [facility] * Demetra James, PT - 06/08/2025 4:40 [...] risk reduction [x]Discharge recommendations [x]Mobility Recommendations []Other: []Powder Coater utilized for session Team Communication: Communicated with [...] participate in the rehabilitation program: Yes Time: 6371-7496 Physical Therapist Name: DEMETRA HAWKINS PT Physical Therapist Pager: [phone] License #: [id number] * Kimani Rivas MD - 06/08/2025 10:03 AM EDT Images from the original note were not included. 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 Not able to [...] PGY2 Psychiatric Consultation Liaison Service Please contact [phone] for overnight or weekend psychiatric emergencies. Case [...] Exam: Deferred ASSESSMENT: Estimated Nutrition Needs: Calories: 0834-5360 kcal (25-30 kcal/kg) Protein: 85-106 g (1.2-1.5 g/kg) Fluids: 4213-5962 mL (25-30 mL/kg) Estimated Needs Calculated Usin.9 [...] previous RD assessment (x7 days ago), per ADVERTISING MANAGER/team now NPO as of 06/03 given high [...] Lytes WNL. Interventions / Recommendations: Diet per team/ADVERTISING MANAGER Continue tube feeds at cycled goal: Glucerna [...] continue to follow, please message or page [phone] with any questions/concerns Signed by: Nelly León MS, RDN, LDN 06/08/25 2:51 PM * Patricia Holden MD - 06/08/2025 7:05 AM EDT [facility] Medicine Progress Note Patient: Carter Raymundo ( [...] potential medical setback in psych placement. - ADVERTISING MANAGER consult if patient agreeable, limited by agitation/paranoia [...] Full Code - Contact/HCP: brother Delvin Raymundo [phone] - Dispo: cheli-psych placement, trial with PT [...] s/p G-tube on TF who presented to [facility] on 04/15 with unresponsiveness, aphasia, and concern [...] unless he can be further evaluated by ADVERTISING MANAGER with VFSS/FEES. I spent 40 minutes in this clinical encounter reviewing the medical record, seeing and examining the patient, placing orders, writing notes, performing signout, and communicating with the applicable medical and nursing teams. Feliciano Choi MD Section of Hospital Medicine [facility] * Ammon Low MD PhD - 06/07/2025 7:22 AM EDT [facility] Medicine Progress Note Patient: Carter Raymundo ( [...] overnight tube feeds; adjustments per nutrition. - ADVERTISING MANAGER consult if patient agreeable, limited by agitation/paranoia [...] Full Code - Contact/HCP: brother Delvin Raymundo [phone] - Dispo: cheli-psych placement, trial with PT [...] Mariano Maloney MD Section of Hospital Medicine [facility] * Param Mg, PT - 06/06/2025 2:11 [...] risk reduction [x]Discharge recommendations [x]Mobility Recommendations []Other: []Powder Coater utilized for session Team Communication: Communicated with [...] participate in the rehabilitation program: Yes Time: 4105-2691 Physical Therapist Name: [place] [id number] Physical Therapist Pager: [phone] * Patricia Holden MD - 06/06/2025 7:51 AM EDT [facility] Medicine Progress Note Patient: Carter Raymundo ( [...] overnight tube feeds; adjustments per nutrition. - ADVERTISING MANAGER consult if patient agreeable, limited by agitation/paranoia [...] Full Code - Contact/HCP: brother Delvin Raymundo [phone] - Dispo: cheli-psych placement, trial with PT [...] Mariano Maloney MD Section of Hospital Medicine [facility] * Nilam Weinberg RN - 06/05/2025 4:57 PM EDT Case Management - Progress Note Patient: Carter Raymundo : 1955 Attending: Urabn Mondragon MD Admit Date: 04/15/2025 Inpatient Status Admit Date: 04/16/25 Primary Care Physician: Kilo Huynh Discussed at [facility]. MANJIT: Pending IP Cheli Psych Bed: [...] participate in the rehabilitation program: Yes Time: 5799-9575 Physical Therapist Name: Yogi Blevins PT Physical Therapist Pager: [phone] License #: [id number] * Kimani Rivas MD - 06/05/2025 12:29 PM EDT Images from the original note were not included. 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 Cognition intact on [...] written with contribution by Beulah Thakkar, MS3 [employer] Kimani Rivas MD Psychiatry PGY2 Psychiatric Consultation Liaison Service Please contact [phone] for overnight or weekend psychiatric emergencies. [1] acetaminophen, 1,000 mg, G-tube, Q8H CLADUIA atorvaSTATin, 20 mg, G-tube, QHS [Held by [...] Daily sodium chloride, 3 mL, Intravenous, Q12H LCAUDIA polyethylene glycol, 17 g, G-tube, BID ramelteon, [...] Holden MD - 06/05/2025 7:11 AM EDT [facility] Medicine Progress Note Patient: Carter Raymundo ( [...] overnight tube feeds; adjustments per nutrition. - ADVERTISING MANAGER consult if patient agreeable,limited by agitation/paranoia # [...] Full Code - Contact/HCP: brother Delvin Raymundo [phone] - Dispo: cheli-psych placement, trial with PT [...] neg. EEG without evidence of seizure. Had PASSENGER SERVICE AGENT on 05/27 for unresponsiveness and hypoxemia likely [...] 05/30, however remains high aspiration risk and ADVERTISING MANAGER felt aspiration is silent and clinical assessment [...] EMR Functional Mobility Bed Mobility: Rolling: Modified [place] Adaptive Equipment: Side rails Supine to Sit: [...] risk reduction [x]Discharge recommendations [x]Mobility Recommendations []Other: []Powder Coater utilized for session Team Communication: Communicated with [...] participate in the rehabilitation program: Yes Time: 5993-8615 Physical Therapist Name: DEMETRA HAWKINS PT Physical Therapist Pager: [phone] License #: [id number] * Kimani Rivas MD - 06/04/2025 11:30 AM EDT Images from the original note were not included. 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 Cognition intact on [...] of Psychiatry Psychiatry Consultation-Liaison Service Please page [phone] overnight for any questions or concerns regarding [...] Holden MD - 06/04/2025 6:52 AM EDT [facility] Medicine Progress Note Patient: Carter Raymundo ( , 1955) Admission Date: 04/15/2025 PCP: Kilo Reyes Jr [facility] Inpatient Attending: Urban Mondragon MD INTERVAL [...] overnight tube feeds; adjustments per nutrition. - ADVERTISING MANAGER consult if patient agreeable,limited by agitation/paranoia # [...] Full Code - Contact/HCP: brother Delvin Raymundo [phone] - Dispo: cheli-psych placement, trial with PT [...] acute agitation. Improving mental status, A&Ox3. On [id number], HCP activated. QTC 471 on 05/31. Follow up clozapine level. On 06/03 expressed SI without plan, continue 1:1, appreciate psych recs, plan for Sunday meeting to discuss dispo. Worked with PT on 06/03 - two assist to stand. #Metabolic encephalopathy - resolved: presented with AMS, initial code stroke called, CT head without contrast neg. EEG without evidence of seizure. Had PASSENGER SERVICE AGENT on 05/27 for unresponsiveness and hypoxemia likely [...] 05/30, however remains high aspiration risk and ADVERTISING MANAGER felt aspiration is silent and clinical assessment [...] risk reduction [x]Discharge recommendations [x]Mobility Recommendations []Other: []Powder Coater utilized for session Team Communication: Communicated with [...] participate in the rehabilitation program: Yes Time: 2513-9547 Physical Therapist Name: DEMETRA HAWKINS PT Physical Therapist Pager: [phone] License #: [id number] * Kymberly Mata MD - 06/03/2025 4:30 PM EDT [facility] PSYCHIATRIC CONSULTATION FOLLOW-UP NOTE INTERVAL HPI: Carter was more agitated overnight. He pulled out PIV. He received haloperidol 2mg PRN without benefit. Clozapine doses were switched so that he received 150mg yesterday am and 25mg qHS. He is cleared from COVID precautions. This morning, he engaged in session with physical therapy. 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 He is appropriately oriented to the time [...] tablet 1,000 mg 1,000 mg G-tube Q8H [facility] Agustín Vazquez MD 1,000 mg at 06/03/25 [...] injection 40 mg 40 mg Subcutaneous Q24H [facility] Juliet Becerra MD 40 mg at famotidine [...] Holden MD - 06/03/2025 7:09 AM EDT [facility] Medicine Progress Note Patient: Carter Raymundo ( , 1955) Admission Date: 04/15/2025 PCP: Kilo Reyes Jr [facility] Inpatient Attending: Urban Mondragon MD INTERVAL 24-hr events: - Pulled out PIV overnight, needed multiple spot doses of Haldol for agitation - Switched Depakote to short acting valproate solution - Did not get his final dose of cefepime - clozapine doses switched - Not able to do ADVERTISING MANAGER or PT yesterday AM Subjective: Carter was still fairly agitated this morning. Expressed continued SI and anger with the medical team. He requested water, and tolerated being boosted in bed and sat upright. Was able to drink water without issue with periods of belching in between sips. Had a conversation with ADVERTISING MANAGER this morning. Carter has a long history [...] overnight tube feeds; adjustments per nutrition. - ADVERTISING MANAGER consult if patient agreeable,limited by agitation/paranoia # [...] Code Status: Full Code - Contact/HCP: brother Devlin Raymundo [phone] - Dispo: cheli-psych placement, trial with PT [...] acute agitation. Improving mental status, A&Ox3. On [id number], HCP activated. QTC 471 on 05/31. Follow up clozapine level. On 06/03 expressed SI without plan, continue 1:1, appreciate psych recs on increased agitation. #Metabolic encephalopathy - resolved: presented with AMS, initial code stroke called, CT head without contrast neg. EEG without evidence of seizure. Had PASSENGER SERVICE AGENT on 05/27 for unresponsiveness and hypoxemia likely [...] 05/30, however remains high aspiration risk and ADVERTISING MANAGER felt aspiration is silent and clinical assessment [...] from the original note were not included. [facility] PSYCHIATRIC CONSULTATION FOLLOW-UP NOTE INTERVAL HPI: - [...] of Psychiatry Psychiatry Consultation-Liaison Service Please page [phone] overnight for any questions or concerns regarding [...] Holden MD - 06/02/2025 7:47 AM EDT [facility] Medicine Progress Note Patient: Carter Raymundo ( , 1955) Admission Date: 04/15/2025 PCP: Kilo Reyes Jr [facility] Inpatient Attending: Urban Mondragon MD INTERVAL [...] water. He is amenable to trying an ADVERTISING MANAGER consult pending their availability. Per nursing is [...] could trial PO if patient amenable - ADVERTISING MANAGER consult if patient agreeable,limited by agitation/paranoia. Will attempt today pending ADVERTISING MANAGER availability. # Constipation / Diarrhea Hx severe [...] Full Code - Contact/HCP: brother Delvin Raymundo [phone] - Dispo: cheli-psych placement, completion of IV [...] acute agitation. Improving mental status, A&Ox3. On [id number], HCP activated. QTC 471 on 05/31. Follow up clozapine level. More cooperative on 06/02 AM without paranoid thoughts, will aim for ADVERTISING MANAGER and possibly PT today. #Metabolic encephalopathy: presented with AMS, initial code stroke called, CT head without contrastneg. EEG without evidence of seizure. Had PASSENGER SERVICE AGENT on 05/27 for unresponsiveness and hypoxemia likely [...] to thin liquids on 05/30, will need ADVERTISING MANAGER re-eval when he is more cooperative. Remains on COVID precautions until 06/03. #Hypernatremia: increase free water flush, likely due to limited po intake, resolved as of 06/01. #Drug induced parkinsonism: s/p sinemet #Dysphagia s/p G tube: will coordinate with RN and ADVERTISING MANAGER regarding repeat ADVERTISING MANAGER eval. Continue on TF with [facility]. I [...] severe agitation. ASSESSMENT: Estimated Nutrition Needs: Calories: 4766-1357 kcal (25-30 kcal/kg) Protein: 85-106 g (1.2-1.5 g/kg) Fluids: 6750-5591 mL (25-30 mL/kg) Estimated Needs Calculated Usin.9 [...] to follow. Interventions / Recommendations: Diet per team/ADVERTISING MANAGER. Continue tube feeds at goal: Glucerna 1.5 [...] continue to follow, please message or page [phone] with any questions/concerns Signed by: Nicole Ramirez, MS, RD, LDN 06/01/25 12:12 PM * Kimani Rivas MD - 06/01/2025 11:57 AM EDT [facility] PSYCHIATRIC CONSULTATION FOLLOW-UP NOTE INTERVAL HPI: - [...] however it is suspected that the primary courtesy driver of his current disorganized behavior is [...] attending psychiatrist Dr. Kymberly Mata. Please page [phone] overnight for any questions or concerns regarding [...] Daily sodium chloride, 3 mL, Intravenous, Q12H CLAUIDA ramelteon, 8 mg, G-tube, QHS sennosides, 17.6 [...] breakdown, for which he was hospitalized at [place]. He wonders if I am and then [...] Holden MD - 06/01/2025 7:34 AM EDT [facility] Medicine Progress Note Patient: Carter Raymundo ( [...] could trial PO if patient amenable - ADVERTISING MANAGER consult if patient agreeable,limited by agitation/paranoia # [...] Full Code - Contact/HCP: brother Delvin Raymundo [phone] - Dispo: cheli-psych placement, completion of IV [...] acute agitation. Improving mental status, A&Ox3. On [id number], HCP activated. QTC 471 on 05/31. Remains paranoid without agitation or combative behavior. Will discuss with psychiatry as he is getting close to me dical clearance about potential transfer. #Metabolic encephalopathy: presented with AMS, initial code stroke called, CT head without contrastneg. EEG without evidence of seizure. Had PASSENGER SERVICE AGENT on 05/27 for unresponsiveness and hypoxemia likely [...] to thin liquids on 05/30, will need ADVERTISING MANAGER re-eval on Sunday given improved mental status. Remains on COVID precautions until 06/03. #Hypernatremia: increase free water flush, likely due to limited po intake, resolved as of 06/01. #Drug induced parkinsonism: s/p sinemet #Dysphagia s/p G tube: will coordinate with RN and ADVERTISING MANAGER regarding repeat ADVERTISING MANAGER eval. Continue on TF with FWF. I spent 52 minutes directly and personally assessing the patient by, but not limited to, obtaining a history; examining the patient; reviewing data; making decisions for treatment, evaluation of patient's response to treatment; documentation of findings; and discussions with other members of the care team. * Ammon Low MD PhD - 05/31/2025 7:02 AM EDT [facility] Medicine Progress Note Patient: Carter Raymundo ( [...] Full Code - Contact/HCP: brother Delvin Raymundo [phone] - Dispo: cheli-psych placement, completion of IV [...] acute agitation. Improving mental status, A&Ox3. On [id number], HCP activated. QTC 471 on 05/31. #Metabolic encephalopathy: presented with AMS, initial code stroke called, CT head without contrastneg. EEG without evidence of seizure. Had PASSENGER SERVICE AGENT on 05/27 for unresponsiveness and hypoxemia likely [...] to thin liquids on 05/30, will need ADVERTISING MANAGER re-eval on Sunday given improved mental status. [...] Holden MD - 05/30/2025 7:00 AM EDT [facility] Department of Medicine [facility] Medicine Progress Note Patient: Carter Raymundo Admission [...] resolved quickly, possible 2/2 aspiration. At the [facility], he is on a pureed diet. High risk for aspiration. - Liquids with nursing monitoring - Deferring ADVERTISING MANAGER for now; consider ADVERTISING MANAGER if maintains alertness and cooperability as seen [...] Emergency Contact: Delvin Raymundo Mobile Relation: Brother Powder Coater needed? No Patricia Holden MD PGY-1 Dept [...] agitation. Improving mental status today, A&Ox3. On [id number], HCP activated. Check Qtc tomorrow, last Qtc 05/29 510. #Metabolic encephalopathy: presented with AMS, initial code stroke called, CT head without contrastneg. EEG without evidence of seizure. Had PASSENGER SERVICE AGENT on 05/27 for unresponsiveness and hypoxemia likely [...] diet to thin liquids today, will need ADVERTISING MANAGER re-eval on Sunday given improved mental status. [...] Primary Care Physician: Kilo Huynh Discussed at [facility]. MANJIT: Steffen Bower Psych Bed: On bed search list. Nilam Weinberg RN 05/29/2025 * Patricia Holden MD - 05/29/2025 7:59 AM EDT Images from the original note were not included. [facility] Department of Medicine [facility] Medicine Progress Note Patient: Carter Raymundo Admission [...] resolved quickly, possible 2/2 aspiration. At the [facility], he is on a pureed diet. High risk for aspiration. - Continue pureed diet - Deferring ADVERTISING MANAGER for now - Nutrition consulted, appreciate recs [...] Emergency Contact: Delvin Raymundo Mobile Relation: Brother Powder Coater needed? No Patricia Holden MD PGY-1 Dept [...] Rabia Velasco MD Section of Hospital Medicine [facility] * Madelyn Bailey RN - 05/29/2025 1:49 [...] from the original note were not included. [facility] PSYCHIATRIC CONSULTATION FOLLOW-UP NOTE INTERVAL HPI: - [...] attending psychiatrist Dr. Kymberly Mata. Please page [phone] overnight for any questions or concerns regarding [...] Holden MD - 05/28/2025 6:58 AM EDT [facility] Department of Medicine [facility] Medicine Progress Note Patient: Carter Raymundo Admission [...] agitated LABS, MICROBIOLOGY and STUDIES reviewed in [facility]. ASSESSMENT & PLAN Carter Raymundo is a [...] resolved quickly, possible 2/2 aspiration. At the [facility], he is on a pureed diet. High risk for aspiration. - Continue pureed diet - Deferring ADVERTISING MANAGER for now - Nutrition consulted, appreciate recs [...] Emergency Contact: Delvin Raymundo Mobile Relation: Brother Powder Coater needed? No Patricia Holden MD PGY-1 Dept [...] Rabia Velasco MD Section of Hospital Medicine [facility] * Kymberly Mata MD - 2025 3:50 PM EDT [facility] PSYCHIATRIC CONSULTATION FOLLOW-UP NOTE INTERVAL HPI: Per [...] 111 BPM Atrial Heart Rate 111 BPM VT Interval 128 ms QRSD Interval 100 ms QT Interval 374 ms QTC Interval 508 ms P [place] 50 degrees R [place] -25 degrees T Wave [place] 53 degrees Narrative Sinus tachycardia Otherwise normal [...] tablet 1,000 mg 1,000 mg G-tube Q8H [facility] Agustín Vazquez MD 1,000 mg at 05/27/25 [...] injection 40 mg 40 mg Subcutaneous Q24H [facility] Juliet Becerra MD 40 mg at [id number] famotidine (PEPCID) tablet 20 mg 20 mg [...] solution 3 mL 3 mL Nebulization Q6H [facility] Ammon Low MD PhD 3 mL at [...] (NS) 0.9% flush 3 mL Intravenous Q12H [facility] Peña Salas MD 3 mLat 05/26/25 2140 [...] PEG, PIV x1. Estimated Nutrition Needs: Calories: 1870-7196 kcal (25-30 kcal/kg) Protein: 85-106 g (1.2-1.5 g/kg) Fluids: 4074-4514 mL (25-30 mL/kg) Estimated Needs Calculated Usin.9 [...] insulin PRN for hyperglycemia. Nutrition to follow, [phone] for any nutrition questions/concerns/interventions. * Patricia Holden MD - 2025 7:36 AM EDT [facility] Department of Medicine [facility] Medicine Progress Note Patient: Carter Raymundo Admission [...] agitated LABS, MICROBIOLOGY and STUDIES reviewed in [facility]. ASSESSMENT & PLAN Carter Raymundo is a [...] resolved quickly, possible 2/2 aspiration. At the [facility], he is on a pureed diet. High risk for aspiration. - Continue pureed diet - Deferring ADVERTISING MANAGER for now - Nutrition consulted, appreciate recs [...] Emergency Contact: Delvin Raymundo Mobile Relation: Brother Powder Coater needed? No Patricia Holden MD PGY-1 Dept of Medicine Cosigned by Rabia Velsaco MD at 2025 5:17 PM EDT Associated [...] Rabia Velasco MD Section of Hospital Medicine [facility] * Patricia Holden MD - 05/26/2025 8:05 AM EDT Images from the original note were not included. [facility] Department of Medicine [facility] Medicine Progress Note Patient: Carter Raymundo Admission [...] resolved quickly, possible 2/2 aspiration. At the [facility], he is on a pureed diet. High risk for aspiration. - Continue pureed diet - Deferring ADVERTISING MANAGER for now - Nutrition consulted, appreciate recs [...] Emergency Contact: Delvin Raymundo Mobile Relation: Brother Powder Coater needed? No Patricia Holden MD Dept of [...] Rabia Velasco MD Section of Hospital Medicine [facility] * Kimani Rivas MD - 05/25/2025 9:32 AM EDT Images from the original note were not included. [facility] PSYCHIATRIC CONSULTATION FOLLOW-UP NOTE INTERVAL HPI: - [...] attending psychiatrist Dr. Kymberly Mata. Please page [phone] overnight for any questions or concerns regarding [...] Exam: Deferred. ASSESSMENT: Estimated Nutrition Needs: Calories: 6314-3662 kcal (25-30 kcal/kg) Protein: 85-106 g (1.2-1.5 g/kg) Fluids: 1883-2681 mL (25-30 mL/kg) Estimated Needs Calculated Usin.9 kg (156 lb 4.9 oz) (weight at rehab) Specifics: 69M w/ PMHx significant for HTN, CKD, schizoaffective disorder, and drug-induced parkinsonism. Presented to [facility] on 04/15/25 w/ unresponsiveness, asphaia, & possible [...] continue to follow, please message or page [phone] with any questions/concerns Signed by: Nicole Ramirez, MS, RD, LDN 05/25/25 8:58 AM * Patricia Holden MD - 05/25/2025 7:54 AM EDT Images from the original note were not included. [facility] Department of Medicine [facility] Medicine Progress Note Patient: Carter Raymundo Admission [...] examined. LABS, MICROBIOLOGY and STUDIES reviewed in [facility]. ASSESSMENT & PLAN Carter Raymundo is a [...] resolved quickly, possible 2/2 aspiration. At the [facility], he is on a pureed diet. High risk for aspiration. - Continue pureed diet - Deferring ADVERTISING MANAGER for now - Nutrition consulted, appreciate recs [...] Emergency Contact: Delvin Raymundo Mobile Relation: Brother Powder Coater needed? No Patricia Holden MD Dept of [...] Rabia Velasco MD Section of Hospital Medicine [facility] * Nicole Willoughby RN - 05/25/2025 7:01 [...] Frequent safety checks performed, safety maintained. * Nicloe Willoughby RN - 05/24/2025 7:30 AM EDT [...] from the original note were not included. [facility] Department of Medicine [facility] Medicine Progress Note Patient: Carter Raymundo Admission [...] resolved quickly, possible 2/2 aspiration. At the [facility], he is on a pureed diet. High risk for aspiration. - Continue pureed diet - Deferring ADVERTISING MANAGER for now - Nutrition consulted, appreciate recs [...] Brother - Disposition: -- Anticipated discharge to: [facility] -- Anticipated discharge date: t+2 -- Anticipated discharge barriers: Pending placement Extended Emergency Contact Information Primary Emergency Contact: Delvin Raymundo Mobile Relation: Brother Powder Coater needed? No Karrie Starks MD Dept of [...] Rabia Velasco MD Section of Hospital Medicine [facility] * Agustín Vazquez MD - 05/23/2025 3:20 PM EDT Images from the original note were not included. [facility] Department of Medicine [facility] Medicine Progress Note Patient: Carter Raymundo Admission [...] resolved quickly, possible 2/2 aspiration. At the [facility], he is on a pureed diet. High risk for aspiration. - Continue pureed diet - Deferring ADVERTISING MANAGER for now - Nutrition consulted, appreciate recs [...] Emergency Contact: Delvin Raymundo Mobile Relation: Brother Powder Coater needed? No Agustín Vazquez MD Dept of [...] Rabia Velasco MD Section of Hospital Medicine [facility] * Kimani Rivas MD - 05/22/2025 11:15 AM EDT Images from the original note were not included. [facility] PSYCHIATRIC CONSULTATION FOLLOW-UP NOTE INTERVAL HPI: - [...] attending psychiatrist Dr. Kymberly Mata. Please page [phone] overnight for any questions or concerns regarding [...] from the original note were not included. [facility] Department of Medicine [facility] Medicine Progress Note Patient: Carter Raymundo Admission [...] resolved quickly, possible 2/2 aspiration. At the [facility], he is on a pureed diet. High risk for aspiration. - Continue pureed diet - Deferring ADVERTISING MANAGER for now - Nutrition consulted, appreciate recs [...] Brothmarisa - Disposition: -- Anticipated discharge to: detention facility -- Anticipated discharge date: t+2 -- Anticipated discharge barriers: Pending placement Extended Emergency Contact Information Primary Emergency Contact: Delvin Raymundo Mobile Relation: Brother Powder Coater needed? No Karrie Starks MD Dept of [...] documentation. -- Imelda Watt??MD shelly, MBE Hospitalist, [facility] * Kimani Rivas MD - 05/21/2025 11:47 AM EDT Images from the original note were not included. [facility] PSYCHIATRIC CONSULTATION FOLLOW-UP NOTE INTERVAL HPI: - Patient engaging more appropriate with nursing today - Patient spitting on PCT early this AM during brief interaction - had bowel movement today per nursing On interview, patient reports this sign writer letterer or painter has an evil look in his eye. He states that he is beingtortured here and would here. He becomes tearful when talking about his experiences. He refers to this sign writer letterer or painter briefly as Delvin . He politely requests this sign writer letterer or painter to leave the room and says he [...] attending psychiatrist Dr. Kymberly Mata. Please page [phone] overnight for any questions or concerns regarding [...] from the original note were not included. [facility] Department of Medicine [facility] Medicine Progress Note Patient: Carter Raymundo Admission Date: 04/15/2025 Length of Stay: 35 PCP: Kiol Huynh Attending: Imelda Xie MD Chief Complaint: [...] resolved quickly, possible 2/2 aspiration. At the [facility], he is on a pureed diet. High risk for aspiration. - Continue pureed diet - Deferring ADVERTISING MANAGER for now - Nutrition consulted, appreciate recs [...] Brothmarisa - Disposition: -- Anticipated discharge to: detention facility -- Anticipated discharge date: t+2 -- Anticipated discharge barriers: Pending placement Extended Emergency Contact Information Primary Emergency Contact: Delvin Raymundo Mobile Relation: Brother Powder Coater needed? No Karrie Starks MD Dept of [...] documentation. -- Imelda Watt??MD shelly, MBE Hospitalist, [facility] * Kymberly Mata MD - 05/20/2025 1:17 PM EDT Images from the original note were not included. [facility] PSYCHIATRIC CONSULTATION FOLLOW-UP NOTE INTERVAL HPI: Pt [...] 101 BPM Atrial Heart Rate 101 BPM VT Interval 150 ms QRSD Interval 100 ms QT Interval 386 ms QTC Interval 500 ms P [place] 35 degrees R [place] -33 degrees T Wave [place] 48 degrees Narrative Sinus tachycardia Left axis [...] from the original note were not included. [facility] Department of Medicine [facility] Medicine Progress Note Patient: Carter Raymundo Admission [...] resolved quickly, possible 2/2 aspiration. At the [facility], he is on a pureed diet. High risk for aspiration. - Continue pureed diet - Deferring ADVERTISING MANAGER for now - Nutrition consulted, appreciate recs [...] Brother - Disposition: -- Anticipated discharge to: detention facility -- Anticipated discharge date: t+2 -- Anticipated discharge barriers: Pending placement Extended Emergency Contact Information Primary Emergency Contact: Delvin Raymundo Mobile Relation: Brother Powder Coater needed? No Karrie Starks MD Dept of [...] documentation. -- Imelda Watt??MD shelly, MBE Hospitalist, [facility] * Kimani Rivas MD - 05/19/2025 9:33 AM EDT Images from the original note were not included. [facility] PSYCHIATRIC CONSULTATION FOLLOW-UP NOTE INTERVAL HPI: - [...] states that's enough and gestures for this sign writer letterer or painter to leave the room. REVIEW OF SYSTEMS: [...] attending psychiatrist, Dr. Kymberly Mata. Please page [phone] overnight for any questions or concerns regarding [...] from the original note were not included. [facility] Department of Medicine [facility] Medicine Progress Note Patient: Carter Raymundo Admission [...] resolved quickly, possible 2/2 aspiration. At the [facility], he is on a pureed diet. High risk for aspiration. - Continue pureed diet - Deferring ADVERTISING MANAGER for now - Nutrition consulted, appreciate recs [...] Brothmarisa - Disposition: -- Anticipated discharge to: detention facility -- Anticipated discharge date: t+2 -- Anticipated discharge barriers: Pending placement Extended Emergency Contact Information Primary Emergency Contact: Delvin Raymundo Mobile Relation: Brother Powder Coater needed? No Karrie Starks MD Dept of [...] documentation. -- Imelda Watt??MD shelly, MBE Hospitalist, [facility] * Kimani Rivas MD - 05/18/2025 1:48 PM EDT Images from the original note were not included. [facility] PSYCHIATRIC CONSULTATION FOLLOW-UP NOTE INTERVAL HPI: - Patient required Ativan 1mg PO overnight for agitation - Last BM ~3 days prior - Patient calm, cooperative with staff this morning Patient recognizes and acknowledges this sign writer letterer or painter on interview. He denies any concerns and requests for this sign writer letterer or painter to shake his hand. On near approach with hand the patient grabs this sign writer letterer or painter's hand and pulls in, holds tightly despite [...] attending psychiatrist, Dr. Kymberly Mata Please page [phone] overnight for any questions or concerns regarding [...] Exam: Deferred. ASSESSMENT: Estimated Nutrition Needs: Calories: 4248-9060 kcal (25-30 kcal/kg) Protein: 85-106 g (1.2-1.5 g/kg) Fluids: 3696-4869 mL (25-30 mL/kg) Estimated Needs Calculated Usin.9 kg (156 lb 4.9 oz) (weight at rehab) Specifics: 69M w/ PMHx significant for HTN, CKD, schizoaffective disorder, and drug-induced parkinsonism. Presented to [facility] on 04/15/25 w/ unresponsiveness, asphaia, & possible [...] continue to follow, please message or page [phone] with any questions/concerns Signed by: Nicole Ramirez, MS, RD, LDN 05/18/25 8:43 AM * Karrie Starks MD - 05/18/2025 6:56 AM EDT Images from the original note were not included. [facility] Department of Medicine [facility] Medicine Progress Note Patient: Carter Raymundo Admission [...] resolved quickly, possible 2/2 aspiration. At the [facility], he is on a pureed diet. High risk for aspiration. - Continue pureed diet - Deferring ADVERTISING MANAGER for now - Nutrition consulted, appreciate recs [...] Brothmarisa - Disposition: -- Anticipated discharge to: detention facility -- Anticipated discharge date: t+2 -- Anticipated discharge barriers: Pending placement Extended Emergency Contact Information Primary Emergency Contact: Delvin Raymundo Mobile Relation: Brother Powder Coater needed? No Karrie Starks MD Dept of [...] documentation. -- Imelda Watt??MD shelly, MBE Hospitalist, [facility] * Agustín Vazquez MD - 05/17/2025 3:59 PM EDT Images from the original note were not included. [facility] Department of Medicine [facility] Medicine Progress Note Patient: Carter Raymundo Admission [...] resolved quickly, possible 2/2 aspiration. At the [facility], he is on a pureed diet. High risk for aspiration. - Continue pureed diet - Deferring ADVERTISING MANAGER for now - Nutrition consulted, appreciate recs [...] Emergency Contact: Delvin Raymundo Mobile Relation: Brother Powder Coater needed? No Agustín Vazquez MD Dept of [...] Mohinder Johnson MD Section of Hospital Medicine [facility] * Karrie Starks MD - 05/16/2025 6:48 AM EDT Images from the original note were not included. [facility] Department of Medicine [facility] Medicine Progress Note Patient: Carter Raymundo Admission [...] resolved quickly, possible 2/2 aspiration. At the [facility], he is on a pureed diet. High risk for aspiration. - Continue pureed diet - Deferring ADVERTISING MANAGER for now - Nutrition consulted, appreciate recs [...] Brothmarisa - Disposition: -- Anticipated discharge to: detention facility -- Anticipated discharge date: t+2 -- Anticipated discharge barriers: Pending placement Extended Emergency Contact Information Primary Emergency Contact: Delvin Raymundo Mobile Relation: Brother Powder Coater needed? No Karrie Starks MD Dept of [...] Mohinder Johnson MD Section of Hospital Medicine [facility] * Kimani Rivas MD - 05/15/2025 3:11 PM EDT Images from the original note were not included. [facility] PSYCHIATRIC CONSULTATION FOLLOW-UP NOTE INTERVAL HPI: -patient exhibiting ongoing agitation and disorganized behavior requiring multiple doses of Ativan Patient is seen in soft wrist restraints, engaging with PCT, drinking cranberry juice prior to interview. Patient reports this sign writer letterer or painter is his daily nightmare . He expresses frustration, uses racial slur. He reports ongoing left shoulder pain and states that this sign writer letterer or painter cannot help him. He states hewants to [...] Kimani Rivas MD PGY2, Department of Psychiatry [id number] Case discussed with attending psychiatrist, Dr. Kymberly [...] from the original note were not included. [facility] Department of Medicine [facility] Medicine Progress Note Patient: Carter Raymundo Admission [...] resolved quickly, possible 2/2 aspiration. At the [facility], he is on a pureed diet. High risk for aspiration. - Continue pureed diet - Deferring ADVERTISING MANAGER for now - Nutrition consulted, appreciate recs [...] Brother - Disposition: -- Anticipated discharge to: detention facility -- Anticipated discharge date: t+2 -- Anticipated discharge barriers: Pending placement Extended Emergency Contact Information Primary Emergency Contact: Delvin Raymundo Mobile Relation: Brother Powder Coater needed? No Karrie (Kostas Starks MD Internal [...] Mohinder Johnson MD Section of Hospital Medicine [facility] * Kimani Rivas MD - 05/14/2025 10:26 AM EDT [facility] PSYCHIATRIC CONSULTATION FOLLOW-UP NOTE INTERVAL HPI: -NAEON [...] Parkinsonism. Patient's neurologist (Marilyn Raygoza [place] - [facility] affirms half-way plan to wean off of Sinemet since [...] Kimani Rivas MD PGY2, Department of Psychiatry [id number] Case staffed with attending psychiatrist, Dr. Kymberly [...] from the original note were not included. [facility] Department of Medicine [facility] Medicine Progress Note Patient: Carter Raymundo Admission [...] reviewed in Epic. ASSESSMENT & PLAN Carter aRymundo is a 69 y.o. male with a [...] resolved quickly, possible 2/2 aspiration. At the [facility], he is on a pureed diet. High risk for aspiration. - Continue pureed diet - Deferring ADVERTISING MANAGER for now - Nutrition consulted, appreciate recs [...] Brother - Disposition: -- Anticipated discharge to: detention facility -- Anticipated discharge date: t+2 -- Anticipated discharge barriers: Pending placement Extended Emergency Contact Information Primary Emergency Contact: Delvin Raymundo Mobile Relation: Brother Powder Coater needed? No Karrie Starks MD ([facility]) Internal [...] Mohinder Johnson MD Section of Hospital Medicine [facility] * Karrie Starks MD - 05/13/2025 6:48 AM EDT Images from the original note were not included. [facility] Department of Medicine [facility] Medicine Progress Note Patient: Carter Raymundo Admission [...] resolved quickly, possible 2/2 aspiration. At the [facility], he is on a pureed diet. High risk for aspiration. - Continue pureed diet - Deferring ADVERTISING MANAGER for now - Nutrition consulted, appreciate recs [...] Brothmarisa - Disposition: -- Anticipated discharge to: detention facility -- Anticipated discharge date: t+2 -- Anticipated discharge barriers: Pending placement Extended Emergency Contact Information Primary Emergency Contact: Delvin Raymundo Mobile Relation: Brother Powder Coater needed? No Karrie (Nelly) MD Tereza Internal [...] Mohinder Johnson MD Section of Hospital Medicine [facility] * Nicole Ramirez - 05/12/2025 8:42 AM [...] severe agitation. ASSESSMENT: Estimated Nutrition Needs: Calories: 4060-2186 kcal (25-30 kcal/kg) Protein: 85-106 g (1.2-1.5 g/kg) Fluids: 2854-0224 mL (25-30 mL/kg) Estimated Needs Calculated Usin.9 kg (156 lb 4.9 oz) (weight at rehab) Specifics: 69M w/ PMHx significant for HTN, CKD, schizoaffective disorder, and drug-induced parkinsonism. Presented to [facility] on 04/15/25 w/ unresponsiveness, asphaia, & possible [...] continue to follow, please message or page [phone] with any questions/concerns Signed by: Nicole Ramirez, MS, RD, LDN 05/12/25 8:42 AM * Karrie Starks MD - 05/12/2025 6:59 AM EDT Images from the original note were not included. [facility] Department of Medicine [facility] Medicine Progress Note Patient: Carter Raymundo Admission [...] resolved quickly, possible 2/2 aspiration. At the [facility], he is on a pureed diet. High risk for aspiration. - Continue pureed diet - Deferring ADVERTISING MANAGER for now - Nutrition consulted, appreciate recs [...] Brother - Disposition: -- Anticipated discharge to: detention facility -- Anticipated discharge date: t+2 -- Anticipated discharge barriers: Pending placement Extended Emergency Contact Information Primary Emergency Contact: Delvin Raymundo Mobile Relation: Brother Powder Coater needed? No Karrie Starks MD ([facility]) Internal [...] Mohinder Johnson MD Section of Hospital Medicine [facility] * Luiza Hamm MD - 05/12/2025 6:26 AM EDT Interventional Radiology Inpatient Progress Note REASON FOR CONSULTATION: Dislodged g-tube HISTORY: Carter Raymundo (BID #: [id number]) is a 69 y.o. male with schizoaffective disorder, drug-induced parkinsonism, with intermittent episodes of agitation that has unfortunately led to the dislodgement of his g-tube. G-tube was initially placed 12/2024 by surgery at [facility], was last rescued via bedside exchange by [...] 95 BPM Atrial Heart Rate 95 BPM VT Interval 154 ms QRSD Interval 100 ms QT Interval 394 ms QTC Interval 495 ms P [place] 87 degrees R [place] -37 degrees T Wave [place] 65 degrees ASSESSMENT: Carter Raymundo is a [...] Fr maharaj in the tract -Please page [phone] with any questions or concerns. Liuza Hamm MD 05/12/2025 Cosigned by Cassandra Fernandez [...] from the original note were not included. [facility] PSYCHIATRIC CONSULTATION FOLLOW-UP NOTE INTERVAL HPI: - Seroquel given overnight for agitation, NAEON following - Patient refusing all AM meds, intermittently agitated this AM Patient appears in mild distress on evaluation this morning. He greets this sign writer letterer or painter initially then states that your generosity is disingenuous . He recalls this sign writer letterer or painter in the torture chamber with him and becomes increasingly agitated. He states that he won't be here tomorrow and asks this sign writer letterer or painter to figure out why . He becomes increasingly agitated over the course of the interview and requests this sign writer letterer or painter to leave, uses expletives, begins posturing. He [...] with patient's neurologist (Marilyn Raygoza MD - [facility] as per her note it indicates a half-way plan to wean off of Sinemet since [...] Kimani Rivas MD PGY2, Department of Psychiatry [id number] Case discussed with attending psychiatrist, Dr. Kymberly [...] from the original note were not included. [facility] Department of Medicine [facility] Medicine Progress Note Patient: Carter Raymundo Admission [...] resolved quickly, possible 2/2 aspiration. At the [facility], he is on a pureed diet. High risk for aspiration. - Continue pureed diet - Deferring ADVERTISING MANAGER for now - Nutrition consulted, appreciate recs [...] Brother - Disposition: -- Anticipated discharge to: detention facility -- Anticipated discharge date: t+2 -- Anticipated discharge barriers: Pending placement Extended Emergency Contact Information Primary Emergency Contact: Delvin Raymundo Mobile Relation: Brother Powder Coater needed? No Karrie (Kostas Starks MD Internal [...] Mohinder Johnson MD Section of Hospital Medicine [facility] * Karrie Starks MD - 05/10/2025 6:43 AM EDT Images from the original note were not included. [facility] Department of Medicine [facility] Medicine Progress Note Patient: Carter Raymundo Admission [...] resolved quickly, possible 2/2 aspiration. At the [facility], he is on a pureed diet. High risk for aspiration. - Continue pureed diet - Deferring ADVERTISING MANAGER for now - Nutrition consulted, appreciate recs [...] Brothmarisa - Disposition: -- Anticipated discharge to: detention facility -- Anticipated discharge date: t+2 -- Anticipated discharge barriers: Pending placement Extended Emergency Contact Information Primary Emergency Contact: Delvin Raymundo Mobile Relation: Brother Powder Coater needed? No Karrie (Kostas Starks MD Dept [...] by Karrie Starks MD. Noe Carranza MD [facility] Medicine Attending pager [phone] * Karrie Starks MD - 05/09/2025 6:43 AM EDT Images from the original note were not included. [facility] Department of Medicine [facility] Medicine Progress Note Patient: Carter Raymundo Admission [...] resolved quickly, possible 2/2 aspiration. At the [facility], he is on a pureed diet. High risk for aspiration. - Continue pureed diet - Deferring ADVERTISING MANAGER for now - Nutrition consulted, appreciate recs [...] Brother - Disposition: -- Anticipated discharge to: detention facility -- Anticipated discharge date: t+2 -- Anticipated discharge barriers: Completion of evaluation for altered mental status Extended Emergency Contact Information Primary Emergency Contact: Delvin Raymundo Mobile Relation: Brother Powder Coater needed? No Karrie Starks MD ([place]) Internal [...] by Karrie Starks MD. Noe Carranza MD [facility] Medicine Attending pager [phone] * Kimani Rivas MD - 05/08/2025 2:00 PM EDT [facility] PSYCHIATRIC CONSULTATION FOLLOW-UP NOTE INTERVAL HPI: - Ativan PRN used last afternoon for agitation - Seroquel PRNs used yesterday for agitation Patient resting comfortably on interview. On seeing this sign writer letterer or painter he shouts no I can't talk today get the f___ out! He then refuses to respond to further questions on interview. Interview prematurelyconcluded per patient preference. Marilyn Raygoza (outpatient neurologist - [phone]), left REVIEW OF SYSTEMS: As per HPI [...] with patient's neurologist (Marilyn Raygoza MD - [facility]) as per her note it indicates a half-way plan to wean off of Sinemet since [...] Kimani Rivas MD PGY2, Department of Psychiatry [id number] [1] atorvaSTATin, 20 mg, G-tube, QHS buPROPion, [...] from the original note were not included. [facility] Department of Medicine [facility] Medicine Progress Note Patient: Carter Raymundo Admission [...] resolved quickly, possible 2/2 aspiration. At the [facility], he is on a pureed diet. High risk for aspiration. - Continue pureed diet - Deferring ADVERTISING MANAGER for now - Nutrition consulted, appreciate recs [...] Brother - Disposition: -- Anticipated discharge to: detention facility -- Anticipated discharge date: t+2 -- Anticipated discharge barriers: Completion of evaluation for altered mental status Extended Emergency Contact Information Primary Emergency Contact: Delvin Raymundo Mobile Relation: Brother Powder Coater needed? No Agustín Vazquez MD PGY2 Cosigned [...] Mohinder Johnson MD Section of Hospital Medicine [facility] * Kimani Rivas MD - 05/07/2025 8:22 AM EDT [facility] PSYCHIATRIC CONSULTATION FOLLOW-UP NOTE INTERVAL HPI: - Ativan PRN used overnight for agitation - Seroquel PRNs used for agitation Patient seen by attending and this sign writer letterer or painter. He indicates frustration with the team and [...] perceptions: does not report SI/HI/AVH, believes this sign writer letterer or painter to be part of group that is [...] with patient's neurologist (Marilyn Raygoza MD - [facility] as per her note it indicates a terminal superintendent plan to wean off of Sinemet since [...] Kimani Rivas MD PGY2, Department of Psychiatry [id number] Case staffed with attending psychiatrist, Dr. Kymberly [...] from the original note were not included. [facility] Department of Medicine [facility] Medicine Progress Note Patient: Carter Raymundo Admission [...] resolved quickly, possible 2/2 aspiration. At the [facility], he is on a pureed diet. High risk for aspiration. - Continue pureed diet - Deferring ADVERTISING MANAGER for now - Nutrition consulted, appreciate recs [...] Brothmarisa - Disposition: -- Anticipated discharge to: detention facility -- Anticipated discharge date: t+2 -- Anticipated discharge barriers: Completion of evaluation for altered mental status Extended Emergency Contact Information Primary Emergency Contact: Delvin Raymundo Mobile Relation: Brother Powder Coater needed? No Karrie Starks MD ([place]) Dept [...] Mohinder Johnson MD Section of Hospital Medicine [facility] * Kymberly Mata MD - 05/06/2025 2:18 PM EDT [facility] PSYCHIATRIC CONSULTATION FOLLOW-UP NOTE INTERVAL HPI: Increased [...] from the original note were not included. [facility] Department of Medicine [facility] Medicine Progress Note Patient: Carter Raymundo Admission [...] resolved quickly, possible 2/2 aspiration. At the [facility], he is on a pureed diet. High risk for aspiration. - Continue pureed diet - Deferring ADVERTISING MANAGER for now - Nutrition consulted, appreciate recs [...] Brother - Disposition: -- Anticipated discharge to: detention facility -- Anticipated discharge date: t+2 -- Anticipated discharge barriers: Completion of evaluation for altered mental status Extended Emergency Contact Information Primary Emergency Contact: Delvin Raymundo Mobile Relation: Brother Powder Coater needed? No Karrie (Nelly) MD Tere[facility] Dept [...] Mohinder Johnson MD Section of Hospital Medicine [facility] * Kimani Rivas MD - 05/05/2025 3:02 PM EDT Images from the original note were not included. [facility] PSYCHIATRIC CONSULTATION FOLLOW-UP NOTE INTERVAL HPI: - Patient intermittently refusing feeds, medications - Seroquel PRNs used for agitation x 2 Patient appears anxious on interview. He initially asks this sign writer letterer or painter to leave because he feels he had [...] not report SI/HI/AVH; mild paranoia regarding this sign writer letterer or painter/staff/answering questions Insight and judgment: limited/limited MEDICATIONS: Scheduled [...] Kimani Rivas MD PGY2, Department of Psychiatry [id number] Case staffed with attending psychiatrist, Dr. Kymberly [...] Exam: Deferred ASSESSMENT: Estimated Nutrition Needs: Calories: 9189-8283 kcal (25-30 kcal/kg) Protein: 85-106 g (1.2-1.5 g/kg) Fluids: 9877-9471 mL (25-30 mL/kg) Estimated Needs Calculated Usin.9 kg (156 lb 4.9 oz) (weight at rehab) Specifics: 69M w/ PMH significant for HTN, CKD, schizoaffective disorder, & drug-induced parkinsonism. Presented to [facility] on 04/15/25 w/ unresponsiveness, asphaia, & possible [...] continue to follow, please message or page [phone] with any questions/concerns Signed by: Nicole Ramirez MS, RD, LDN 05/05/25 7:48 AM * Karrie Starks MD - 05/05/2025 6:54 AM EDT Images from the original note were not included. [facility] Department of Medicine [facility] Medicine Progress Note Patient: Carter Raymundo Admission [...] patient is currently on pureed diet with ADVERTISING MANAGER at their facility following. High risk for aspiration and given transient nature suspect this was the driving etiology of hypoxia. CXR with unclear opacification, then obtained lateral view which showed some streakiness c/f atelectasis vs infection. Given lack of fevers, cough, and leukocytosis, low clinical suspicion for pneumonia and will defer Abx for now. - Continue pureed diet - Deferring ADVERTISING MANAGER for now - Nutrition consulted, appreciate recs [...] Brothmarisa - Disposition: -- Anticipated discharge to: detention facility -- Anticipated discharge date: t+2 -- Anticipated discharge barriers: Completion of evaluation for altered mental status Extended Emergency Contact Information Primary Emergency Contact: Delvin Raymundo Mobile Relation: Brother Powder Coater needed? No Karrie Starks MD ([place]) Dept [...] Mohinder Johnson MD Section of Hospital Medicine [facility] * Madelyn Bailey RN - 05/05/2025 12:43 [...] from the original note were not included. [facility] PSYCHIATRIC CONSULTATION FOLLOW-UP NOTE INTERVAL HPI: - Patient with successful large, soft BM yesterday - Seroquel PRNs used this morning for patient attempting to get out of bed, not able to be verballyredirected Patient appears calm and comfortable on interview. He states that he feels less paranoid today. Asks this sign writer letterer or painter to hold hand for reassurance. Reports feeling [...] Kimani Rivas MD PGY2, Department of Psychiatry [id number] Case staffed with attending psychiatrist, Dr. Kymberly [...] from the original note were not included. [facility] Department of Medicine [facility] Medicine Progress Note Patient: Carter Raymundo Admission [...] patient is currently on pureed diet with ADVERTISING MANAGER at their facility following. High risk for aspiration and given transient nature suspect this was the driving etiology of hypoxia. CXR with unclear opacification, then obtained lateral view which showed some streakiness c/f atelectasis vs infection. Given lack of fevers, cough, and leukocytosis, low clinical suspicion for pneumonia and will defer Abx for now. - Continue pureed diet - Deferring ADVERTISING MANAGER for now - Nutrition consulted, appreciate recs [...] Brothmarisa - Disposition: -- Anticipated discharge to: detention facility -- Anticipated discharge date: t+2 -- Anticipated discharge barriers: Completion of evaluation for altered mental status Extended Emergency Contact Information Primary Emergency Contact: Delvin Raymundo Mobile Relation: Brother Powder Coater needed? No Karrie Starks MD ([facility]) Dept of Medicine Cosigned by Mohinder Johnson MD at 05/04/2025 3:18 PM EDT Associated attestation - Mohinder Johnsno MD - 05/04/2025 3:18 PM EDT I [...] Mohinder Johnson MD Section of Hospital Medicine [facility] * Madelyn Bailey RN - 05/04/2025 5:27 [...] from the original note were not included. [facility] Department of Medicine [facility] Medicine Progress Note Patient: Carter Raymundo Admission [...] patient is currently on pureed diet with ADVERTISING MANAGER at their facility following. High risk for aspiration and given transient nature suspect this was the driving etiology of hypoxia. CXR with unclear opacification, then obtained lateral view which showed some streakiness c/f atelectasis vs infection. Given lack of fevers, cough, and leukocytosis, low clinical suspicion for pneumonia and will defer Abx for now. - Continue pureed diet - Deferring ADVERTISING MANAGER for now - Nutrition consulted, appreciate recs [...] Brothmarisa - Disposition: -- Anticipated discharge to: detention facility -- Anticipated discharge date: t+2 -- Anticipated discharge barriers: Completion of evaluation for altered mental status Extended Emergency Contact Information Primary Emergency Contact: Delvin Raymundo Mobile Relation: Brother Powder Coater needed? No Noe Ruiz MD Dept of Medicine Cosigned by Mildred Srinivasan MD at 05/03/2025 5:27 PM EDT Associated attestation - Mildred Srinivasan MD - 05/03/2025 5:27 PM EDT I have seen and examined Mr. Raymnudo, reviewed the findings and plan of care [...] review of data in electronic medical record, [id number] evaluation, documentation, and coordination of care. Mildred Srinivasan MD Section of Hospital Medicine [facility] * Ebony Oneill MD - 05/02/2025 5:30 PM EDT [facility] PSYCHIATRIC CONSULTATION FOLLOW-UP NOTE CHIEF COMPLAINT: I [...] conveyed to primary team. Ebony Oneill MD [facility] Psychiatry- PGY3 * Karrie Starks MD - 05/02/2025 6:47 AM EDT Images from the original note were not included. [facility] Department of Medicine [facility] Medicine Progress Note Patient: Carter Raymundo Admission [...] patient is currently on pureed diet with ADVERTISING MANAGER at their facility following. High risk for aspiration and given transient nature suspect this was the driving etiology of hypoxia. CXR with unclear opacification, then obtained lateral view which showed some streakiness c/f atelectasis vs infection. Given lack of fevers, cough, and leukocytosis, low clinical suspicion for pneumonia and will defer Abx for now. - Continue pureed diet - Deferring ADVERTISING MANAGER for now - Nutrition consulted, appreciate recs [...] Brothmarisa - Disposition: -- Anticipated discharge to: detention facility -- Anticipated discharge date: t+2 -- Anticipated discharge barriers: Completion of evaluation for altered mental status Extended Emergency Contact Information Primary Emergency Contact: Delvin Raymundo Mobile Relation: Brother Powder Coater needed? No Karrie Starks MD ([facility]) Dept [...] review of data in electronic medical record, lzqw-ij-[id number] evaluation, documentation, and coordination of care. Mildred Srinivasan MD Section of Hospital Medicine [facility] * Kimani Rivas MD - 05/01/2025 4:23 PM EDT Images from the original note were not included. [facility] PSYCHIATRIC CONSULTATION FOLLOW-UP NOTE INTERVAL HPI: - Patient declining tube feeds; medications - No PRNs used overnight - Patient with additional episode of unresponsiveness early this AM, Patient appears calm, awake, alert on interview. He requires significant encouragement to engage with questions and intermittently asks this sign writer letterer or painter to leave. He reports feeling fine with no paranoia.He denies somatic symptoms including abdominal pain, constipation. When asked about bowel movementshe states I don't wanna talk about this anymore . When discussing recent KUB findings he reports that it is not true . He reports he hasn't talked to his brother in some time but they have a good relationship. He states this sign writer letterer or painter is a robot . He ends interview [...] not report SI/HI/AVH; paranoia regarding staff/interventions,states this sign writer letterer or painter is a robot , denies being constipated [...] follow Recommendations communicated to primary team. Kimani Rvias MD PGY2, Department of Psychiatry [id number] Discussed with attending psychiatrist, Dr. Kymberly Mata. [...] from the original note were not included. [facility] Department of Medicine [facility] Medicine Progress Note Patient: Carter Raymundo Admission [...] patient is currently on pureed diet with ADVERTISING MANAGER at their facility following. High risk for aspiration and given transient nature suspect this was the driving etiology of hypoxia. CXR with unclear opacification, then obtained lateral view which showed some streakiness c/f atelectasis vs infection. Given lack of fevers, cough, and leukocytosis, low clinical suspicion for pneumonia and will defer Abx for now. - Continue pureed diet - Deferring ADVERTISING MANAGER for now - Nutrition consulted, appreciate recs [...] Brothmarisa - Disposition: -- Anticipated discharge to: detention facility -- Anticipated discharge date: t+2 -- Anticipated discharge barriers: Completion of evaluation for altered mental status Extended Emergency Contact Information Primary Emergency Contact: Delvin Raymundo Mobile Relation: Brother Powder Coater needed? No Karrie Starks MD ([facility]) Dept [...] review of data in electronic medical record, duez-ru-zhxo evaluation, documentation, and coordination of care. Mildred Srinivasan MD Section of Hospital Medicine [facility] * Kimani Rivas MD - 04/30/2025 9:45 AM EDT Images from the original note were not included. [facility] PSYCHIATRIC CONSULTATION FOLLOW-UP NOTE INTERVAL HPI: - [...] SI. He then said he felt this sign writer letterer or painter and attending were fake but he was not sure. He ended conversation prematurelydue to fatigue. Collateral: Delvin Raymundo (brother) - [phone] He reports he came to visit brother [...] Kimani Rivas MD PGY2, Department of Psychiatry [id number] Discussed with attending psychiatrist, Dr. Kymberly Mata. [...] from the original note were not included. [facility] Department of Medicine [facility] Medicine Progress Note Patient: Carter Raymundo Admission [...] patient is currently on pureed diet with ADVERTISING MANAGER at their facility following. High risk for aspiration and given transient nature suspect this was the driving etiology of hypoxia. CXR with unclear opacification, then obtained lateral view which showed some streakiness c/f atelectasis vs infection. Given lack of fevers, cough, and leukocytosis, low clinical suspicion for pneumonia and will defer Abx for now. - Continue pureed diet - Deferring ADVERTISING MANAGER for now - Nutrition consulted, appreciate recs [...] Brothmarisa - Disposition: -- Anticipated discharge to: detention facility -- Anticipated discharge date: t+2 -- Anticipated discharge barriers: Completion of evaluation for altered mental status Extended Emergency Contact Information Primary Emergency Contact: Delvin Raymundo Mobile Relation: Brother Powder Coater needed? No Karrie Starks MD ([facility]) Dept [...] review of data in electronic medical record, [id number] evaluation, documentation, and coordination of care. Mildred Srinivasan MD Section of Hospital Medicine [facility] * Yogi Blevins, PT - 04/29/2025 12:57 [...] participate in the rehabilitation program: Yes Time: [id number] Physical Therapist Name: Yogi Blevins PT Physical Therapist Pager: [phone] License #: [id number] * Nicole Ramirez - 04/29/2025 9:43 AM [...] BILITOT 0.4 Lab Results Component Value Date [id number] 04/17/2025 CRP 7.5 (H) 04/17/2025 Food [...] Exam: Deferred. ASSESSMENT: Estimated Nutrition Needs: Calories: 1051-6858 kcal (25-30 kcal/kg) Protein: 85-106 g (1.2-1.5 g/kg) Fluids: 2116-3161 mL (25-30 mL/kg) Estimated Needs Calculated Usin.9 kg (156 lb 4.9 oz) (weight at rehab) Specifics: 69M w/ PMH significant for HTN, CKD, schizoaffective disorder, & drug-induced parkinsonism. Presented to [facility] on 04/15/25 w/ unresponsiveness, asphaia, & possible [...] continue to follow, please message or page [phone] with any questions/concerns Signed by: Nicole Ramirez MS, RD, LDN 04/29/25 9:43 AM * Karrie Starks MD - 04/29/2025 6:41 AM EDT Images from the original note were not included. [facility] Department of Medicine [facility] Medicine Progress Note Patient: Carter Raymundo Admission [...] patient is currently on pureed diet with ADVERTISING MANAGER at their facility following. High risk for aspiration and given transient nature suspect this was the driving etiology of hypoxia. CXR with unclear opacification, then obtained lateral view which showed some streakiness c/f atelectasis vs infection. Given lack of fevers, cough, and leukocytosis, low clinical suspicion for pneumonia and will defer Abx for now. - Continue pureed diet - Deferring ADVERTISING MANAGER for now - Nutrition consulted, appreciate recs [...] Brothmarisa - Disposition: -- Anticipated discharge to: detention facility -- Anticipated discharge date: t+2 -- Anticipated discharge barriers: Completion of evaluation for altered mental status Extended Emergency Contact Information Primary Emergency Contact: Delvin Raymundo Mobile Relation: Brother Powder Coater needed? No Karrie Starks MD ([facility]) Dept [...] review of data in electronic medical record, fryp-iq-svyc evaluation, documentation, and coordination of care. Mildred Srinivasan MD Section of Hospital Medicine [facility] * Kimani Rivas MD - 04/28/2025 10:33 AM EDT Images from the original note were not included. [facility] PSYCHIATRIC CONSULTATION FOLLOW-UP NOTE INTERVAL HPI: - Patient agitated overnight, attempted to jump out of bed, required Seroquel PRN - Nursing reports patient readily engaging this AM, conversational, calm On interview, patient is immediately distrusting of this sign writer letterer or painter, stating that you tried to get me to kill myself last week . He endorses mistrust of this sign writer letterer or painter and staff stating that they are all [...] to conversation Memory: Deferred Language: Fluent in Grenadian, no paraphasic errors *limited by patient participation [...] , no HI/AVH, severe paranoia regarding this sign writer letterer or painter/staff/brother/taking medications, delusions regarding intent to harm by this sign writer letterer or painter/staff/brother Insight and judgment: Poor/Poor MEDICATIONS: Scheduled Meds:Scheduled [...] Kimani Rivas MD PGY2, Department of Psychiatry [id number] Discussed with attending psychiatrist, Dr. Kymberly Mata. [...] chloride QUEtiapine * Karrei Starks MD - 04/28/2025 6:41 AM EDT Images from the original note were not included. [facility] Department of Medicine [facility] Medicine Progress Note Patient: Carter Raymundo Admission [...] patient is currently on pureed diet with ADVERTISING MANAGER at their facility following. High risk for aspiration and given transient nature suspect this was the driving etiology of hypoxia. CXR with unclear opacification, then obtained lateral view which showed some streakiness c/f atelectasis vs infection. Given lack of fevers, cough, and leukocytosis, low clinical suspicion for pneumonia and will defer Abx for now. - Continue pureed diet - Deferring ADVERTISING MANAGER for now - Nutrition consulted, appreciate recs [...] Brothmarisa - Disposition: -- Anticipated discharge to: detention facility -- Anticipated discharge date: t+2 -- Anticipated discharge barriers: Completion of evaluation for altered mental status Extended Emergency Contact Information Primary Emergency Contact: Delvin Raymundo Mobile Relation: Brother Powder Coater needed? No Karrie Starks MD ([facility]) Dept [...] review of data in electronic medical record, ylgj-fu-ximi evaluation, documentation, and coordination of care. Mildred Srinivasan MD Section of Hospital Medicine [facility] * Chris Soria RN - 04/27/2025 12:15 [...] from the original note were not included. [facility] PSYCHIATRIC CONSULTATION FOLLOW-UP NOTE INTERVAL HPI: -No [...] not following commands. Patient seen by this sign writer letterer or painter and attending ~30 mins after administration of Ativan. On re-examination with attending, patient has eyes closed, not responsive to noxious stimuli. This sign writer letterer or painter opened the patient's eyes and he holds [...] to conversation Memory: Deferred Language: Fluent in Grenadian, no paraphasic errors *limited by patient participation [...] Negative 04/16/2025 Lab Results Component Value Date [id number] 04/14/2024 Lab Results Component Value Date [...] 119 BPM Atrial Heart Rate 119 BPM VT Interval 144 ms QRSD Interval 96 ms QT Interval 362 ms QTC Interval 509 ms P Rosed[place] 58 degrees R [place]osed[place] -36 degrees T Wave [place] 72 degrees Narrative Sinus tachycardia Left axis [...] exhibiting some paranoia with them and this sign writer letterer or painter on interview. He is initially participatory in [...] Kimani Rivas MD PGY2, Department of Psychiatry [id number] Case seen with Dr. Kymberly Mata, attending [...] from the original note were not included. [facility] Department of Medicine [facility] Medicine Progress Note Patient: Carter Raymundo Admission [...] patient is currently on pureed diet with ADVERTISING MANAGER at their facility following. High risk for aspiration and given transient nature suspect this was the driving etiology of hypoxia. CXR with unclear opacification, then obtained lateral view which showed some streakiness c/f atelectasis vs infection. Given lack of fevers, cough, and leukocytosis, low clinical suspicion for pneumonia and will defer Abx for now. - Continue pureed diet - Deferring ADVERTISING MANAGER for now - Nutrition consulted, appreciate recs [...] Brothmarisa - Disposition: -- Anticipated discharge to: detention facility -- Anticipated discharge date: t+2 -- Anticipated discharge barriers: Completion of evaluation for altered mental status Extended Emergency Contact Information Primary Emergency Contact: Delvin Raymundo Mobile Relation: Brother Powder Coater needed? No Karrie Starks MD Dept of [...] review of data in electronic medical record, rdux-uj-soxf evaluation, documentation, and coordination of care. Mildred Srinivasan MD Section of Hospital Medicine [facility] * Salomon Haile MD - 04/26/2025 6:43 PM EDT Images from the original note were not included. [facility] PSYCHIATRIC CONSULTATION FOLLOW-UP NOTE INTERVAL HPI: No [...] to last 3 presidents Language: Fluent in Grenadian, no paraphasic errors Executive function: Verbal trails [...] Negative 04/16/2025 Lab Results Component Value Date [id number] 04/14/2024 Lab Results Component Value Date [...] 119 BPM Atrial Heart Rate 119 BPM VT Interval 144 ms QRSD Interval 96 ms QT Interval 362 ms QTC Interval 509 ms P [place]osed[place] 58 degrees R [place]osed[place] -36 degrees T Wave [place] 72 degrees Narrative Sinus tachycardia Left axis [...] Salomon Haile MD PGY3, Department of Psychiatry [id number] [1] atorvaSTATin, 20 mg, G-tube, QHS buPROPion, [...] throughout Functional Mobility Bed Mobility: Rolling: Modified [place] Supine to Sit: Minimal assistance (needed cueing [...] risk reduction [x]Discharge recommendations [x]Mobility Recommendations []Other: []Powder Coater utilized for session Team Communication: Communicated with [...] participate in the rehabilitation program: Yes Time: [id number] Physical Therapist Name: [place] [id number] Physical Therapist Pager: [phone] * Noe Ruiz MD - 04/26/2025 7:13 AM EDT Images from the original note were not included. [facility] Department of Medicine [facility] Medicine Progress Note Patient: Carter Raymundo Admission [...] patient is currently on pureed diet with ADVERTISING MANAGER at their facility following. High risk for aspiration and given transient nature suspect this was the driving etiology of hypoxia. CXR with unclear opacification, then obtained lateral view which showed some streakiness c/f atelectasis vs infection. Given lack of fevers, cough, and leukocytosis, low clinical suspicion for pneumonia and will defer Abx for now. - Continue pureed diet - Deferring ADVERTISING MANAGER for now - Nutrition consulted, appreciate recs [...] Brothmarisa - Disposition: -- Anticipated discharge to: detention facility -- Anticipated discharge date: t+1 -- Anticipated discharge barriers: Completion of evaluation for altered mental status Extended Emergency Contact Information Primary Emergency Contact: Delvin Raymundo Mobile Relation: Brother Powder Coater needed? No Noe Ruiz MD Dept of [...] split dose clozapine. He is also on [id number] hoping to discharge him to for inpatient [...] Bonifacio Agudelo MD Section of Hospital Medicine [facility] * Juliet Becerra MD - 04/25/2025 8:39 AM EDT Images from the original note were not included. [facility] Department of Medicine [facility] Medicine Progress Note Patient: Carter Raymundo Admission [...] morning. LABS, MICROBIOLOGY and STUDIES reviewed in [facility]. ASSESSMENT & PLAN Carter Raymundo is a [...] patient is currently on pureed diet with ADVERTISING MANAGER at their facility following. High risk for aspiration and given transient nature suspect this was the driving etiology of hypoxia. CXR with unclear opacification, then obtained lateral view which showed some streakiness c/f atelectasis vs infection. Given lack of fevers, cough, and leukocytosis, low clinical suspicion for pneumonia and will defer Abx for now. - Continue pureed diet - Deferring ADVERTISING MANAGER for now - Nutrition consulted, appreciate recs [...] Brother - Disposition: -- Anticipated discharge to: detention facility -- Anticipated discharge date: t+1 -- Anticipated discharge barriers: Completion of evaluation for altered mental status Extended Emergency Contact Information Primary Emergency Contact: Delvin Raymundo Mobile Relation: Brother Powder Coater needed? No Juliet Becerra MD Dept of [...] Bonifacio Agudelo MD Section of Hospital Medicine [facility] * Juliet Becerra MD - 04/24/2025 8:04 AM EDT Images from the original note were not included. [facility] Department of Medicine [facility] Medicine Progress Note Patient: Carter Raymundo Admission [...] patient is currently on pureed diet with ADVERTISING MANAGER at their facility following. High risk for aspiration and given transient nature suspect this was the driving etiology of hypoxia. CXR with unclear opacification, then obtained lateral view which showed some streakiness c/f atelectasis vs infection. Given lack of fevers, cough, and leukocytosis, low clinical suspicion for pneumonia and will defer Abx for now. - Continue pureed diet - Deferring ADVERTISING MANAGER for now - Nutrition consulted, appreciate recs [...] Brother - Disposition: -- Anticipated discharge to: detention facility -- Anticipated discharge date: t+2 -- Anticipated discharge barriers: Completion of evaluation for altered mental status, re-initiation of clozapine per psychiatry Extended Emergency Contact Information Primary Emergency Contact: Delvin Raymundo Mobile Relation: Brother Powder Coater needed? No Juliet Becerra MD Dept of [...] he is awake to me and answers Era to basic questions about symptoms. He denies [...] Bonifacio Agudelo MD Section of Hospital Medicine [facility] * Alex Goetz MD - 04/23/2025 3:20 PM EDT Images from the original note were not included. [facility] Department of Psychiatry Consultation Liaison Service [facility] PSYCHIATRIC CONSULTATION FOLLOW-UP Date of Service: 04/23/2025 [...] Emergency Contact: Delvin Raymundo Mobile Relation: Brother Powder Coater needed? No Alex Goetz MD PGY-4, Psychiatry [id number] (nights, weekends, holidays) * Kimani Rivas MD - 04/23/2025 11:22 AM EDT [facility] PSYCHIATRIC CONSULTATION FOLLOW-UP NOTE INTERVAL HPI: - [...] Attempted [place], [place] [facility] [place][phone]), left VM REVIEW OF SYSTEMS: Positive as [...] conversation Memory: grossly intact Language: Fluent in Grenadian, no paraphasic errors Mental Status: Appearance: appears [...] Negative 04/16/2025 Lab Results Component Value Date [id number] 04/14/2024 Lab Results Component Value Date [...] 119 BPM Atrial Heart Rate 119 BPM VT Interval 144 ms QRSD Interval 96 ms QT Interval 362 ms QTC Interval 509 ms P [place] 58 degrees R [place] -36 degrees T Wave [place] 72 degrees Narrative Sinus tachycardia Left axis [...] PEG, drug induced Parkinsonism, who presented from [facility] with altered mental status with unresponsiveness and [...] Kimani Rivas MD Psychiatry PGY2 Personal pager: [phone] For overnight emergencies may contact [phone] pager. [1] atorvaSTATin, 20 mg, G-tube, QHS [...] 70.9 kg (sitting scale; 04/13/25) - per [facility] Pertinent Meds: famotidine, lorazepam, multivitamin w/ minerals, [...] BILITOT 0.3 Lab Results Component Value Date [id number] 04/17/2025 CRP 7.5 (H) 04/17/2025 Food [...] Exam: Deferred. ASSESSMENT: Estimated Nutrition Needs: Calories: 1019-2285 kcal (25-30 kcal/kg) Protein: 85-106 g (1.2-1.5 g/kg) Fluids: 4575-5965 mL (25-30 mL/kg) Estimated Needs Calculated Usin.9 kg (156 lb 4.9 oz) (weight at rehab) Specifics: 69M w/ PMHx significant for HTN, CKD, schizoaffective disorder, and drug-induced parkinsonism. Presented to [facility] on 04/15/25 w/ unresponsiveness, asphaia, & possible [...] continue to follow, please message or page [phone] with any questions/concerns Signed by: Nicole Ramirez MS, RD, LDN 04/23/25 8:31 AM * Juliet Becerra MD - 04/23/2025 7:41 AM EDT Images from the original note were not included. [facility] Department of Medicine [facility] Medicine Progress Note Patient: Carter Raymundo Admission [...] morning LABS, MICROBIOLOGY and STUDIES reviewed in [facility]. ASSESSMENT & PLAN Carter Raymundo is a [...] patient is currently on pureed diet with ADVERTISING MANAGER at their facility following. High risk for aspiration and given transient nature suspect this was the driving etiology of hypoxia. CXR with unclear opacification, then obtained lateral view which showed some streakiness c/f atelectasis vs infection. Given lack of fevers, cough, and leukocytosis, low clinical suspicion for pneumonia and will defer Abx for now. - Continue pureed diet - Deferring ADVERTISING MANAGER for now - Nutrition consulted, appreciate recs [...] Brother - Disposition: -- Anticipated discharge to: detention facility -- Anticipated discharge date: t+1 -- Anticipated discharge barriers: Completion of evaluation for altered mental status Extended Emergency Contact Information Primary Emergency Contact: Delvin Raymundo Mobile Relation: Brother Powder Coater needed? No Juliet Becerra MD Dept of [...] Bonifacio Agudelo MD Section of Hospital Medicine [facility] * Kymberly Mata MD - 04/22/2025 12:34 PM EDT [facility] PSYCHIATRIC CONSULTATION FOLLOW-UP NOTE CC: Altered mental [...] PEG, drug induced Parkinsonism, who presented from [facility] with altered mental status with unresponsiveness and [...] from the original note were not included. [facility] Department of Medicine [facility] Medicine Progress Note Patient: Carter Raymundo Admission [...] patient is currently on pureed diet with ADVERTISING MANAGER at their facility following. High risk for aspiration and given transient nature suspect this was the driving etiology of hypoxia. CXR with unclear opacification, then obtained lateral view which showed some streakiness c/f atelectasis vs infection. Given lack of fevers, cough, and leukocytosis, low clinical suspicion for pneumonia and will defer Abx for now. - Continue pureed diet - Deferring ADVERTISING MANAGER for now - Nutrition consulted, appreciate recs [...] Brother - Disposition: -- Anticipated discharge to: detention facility -- Anticipated discharge date: t+1 -- Anticipated discharge barriers: Completion of evaluation for altered mental status Extended Emergency Contact Information Primary Emergency Contact: Delvin Raymundo Mobile Relation: Brother Powder Coater needed? No Juliet Becerra MD Dept of [...] side effect, dystonic reaction, seizure, or other LEATHER CARTRIDGE BELT MAKER injury. Initial blood work is reassuring. 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 Leisure activities: reading Lives With: Alone Receives [...] 2 person Transfer aid: Other (comment) (bilateral FORENSIC SCIENCE TECHNICIAN) Gait Belt Used For Transfers: Yes Gait: [...] risk reduction [x]Discharge recommendations [x]Mobility Recommendations []Other: []Powder Coater utilized for session Team Communication: Communicated with [...] participate in the rehabilitation program: Yes Time: [id number] Physical Therapist Name: DEMETRA HAWKINS PT Physical Therapist Pager: [phone] License #: [id number] * Kimani Rivas MD - 04/21/2025 11:14 AM EDT [facility] PSYCHIATRIC CONSULTATION FOLLOW-UP NOTE INTERVAL HPI: NAEON. [...] Attempted outpatient psychiatrist, [place]. Kayla [place] [facility] ([phone]), left REVIEW OF SYSTEMS: Positive as documented above, otherwise negative EXAM: 04/21/2025 12:42 AM Vital Signs Pain Location Back Neurological: Motor: mild tremor appreciated in bilateral hands L>R Station and gait: not assessed as patient lying in bed Cognitive: Wakefulness/alertness: awake and alert Orientation: grossly oriented to person/place/situation Attention: attentive to conversation Memory: grossly intact Language: Fluent in Grenadian, no paraphasic errors Mental Status: Appearance: appears [...] Negative 04/16/2025 Lab Results Component Value Date [id number] 04/14/2024 Lab Results Component Value Date [...] 98 BPM Atrial Heart Rate 98 BPM VT Interval 156 ms QRSD Interval 108 ms QT Interval 392 ms QTC Interval 500 ms P [place]osed[place] 63 degrees R [place] -23 degrees T Wave [place] 65 degrees Narrative Normal sinus rhythm Minimal [...] PEG, drug induced Parkinsonism, who presented from [facility] with altered mental status with unresponsiveness and [...] Kimani Rivas MD Psychiatry PGY2 Personal pager: [phone] For overnight emergencies may contact [phone] pager. [1] atorvaSTATin, 20 mg, G-tube, QHS [...] PEG, drug induced Parkinsonism, who presented from [facility] with altered mental status with unresponsiveness and [...] from the original note were not included. [facility] Department of Medicine [facility] Medicine Progress Note Patient: Carter Raymundo Admission [...] nursing LABS, MICROBIOLOGY and STUDIES reviewed in [facility]. ASSESSMENT & PLAN Carter Raymundo is a [...] patient is currently on pureed diet with ADVERTISING MANAGER at their facility following. High risk for aspiration and given transient nature suspect this was the driving etiology of hypoxia. CXR with unclear opacification, then obtained lateral view which showed some streakiness c/f atelectasis vs infection. Given lack of fevers, cough, and leukocytosis, low clinical suspicion for pneumonia and will defer Abx for now. - Continue pureed diet - Deferring ADVERTISING MANAGER for now - Nutrition consulted, appreciate recs [...] Brothmarisa - Disposition: -- Anticipated discharge to: detention facility -- Anticipated discharge date: t+1 -- Anticipated discharge barriers: Completion of evaluation for altered mental status Extended Emergency Contact Information Primary Emergency Contact: Delvin Raymundo Mobile Relation: Brother Powder Coater needed? No Juliet Becerra MD Dept of [...] Bonifacio Agudelo MD Section of Hospital Medicine [facility] * Angel Luis Frausto RN - 04/20/2025 1:08 PM EDT VSS. R/A. A/Ox3. Intermittently refusing care from nursing. As of now pt is refusing O2 monitoring, aware. Will try again to place on. 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 He says that this paranoia extended to [...] Negative 04/16/2025 Lab Results Component Value Date [id number] 438 04/14/2024 Lab Results Component Value Date [...] 98 BPM Atrial Heart Rate 98 BPM VT Interval 156 ms QRSD Interval 108 ms QT Interval 392 ms QTC Interval 500 ms P [place] 63 degrees R [place] -23 degrees T Wave [place] 65 degrees Narrative Normal sinus rhythm Minimal [...] from the original note were not included. [facility] Department of Medicine [facility] Medicine Progress Note Patient: Carter Raymundo Admission [...] that he is receiving good care at [facility]. Denies SI/HI. Has some back pain that [...] patient is currently on pureed diet with ADVERTISING MANAGER at their facility following. High risk for aspiration and given transient nature suspect this was the driving etiology of hypoxia. CXR with unclear opacification, then obtained lateral view which showed some streakiness c/f atelectasis vs infection. Given lack of fevers, cough, and leukocytosis, low clinical suspicion for pneumonia and will defer Abx for now. - Continue pureed diet - Deferring ADVERTISING MANAGER for now - Nutrition consulted, appreciate recs [...] Raymundo - Disposition: -- Anticipated discharge to: detention facility -- Anticipated discharge date: t+1 -- Anticipated discharge barriers: Completion of evaluation for altered mental status Extended Emergency Contact Information Primary Emergency Contact: Delvin Raymundo Mobile Relation: Brother Powder Coater needed? No Juliet Becerra MD Dept of [...] Bonifacio Agudelo MD Section of Hospital Medicine [facility] * Alyse Martinez MD - 04/19/2025 12:22 [...] in setting of scoring modestly on fitzpatrick aysmin rating scale, though ultimately ativan orders discontinued [...] collateral that his paranoia is a large courtesy driver of his limited engagement and negativistic [...] from the original note were not included. [facility] Department of Medicine [facility] Medicine Progress Note Patient: Carter Raymundo Admission [...] patient is currently on pureed diet with ADVERTISING MANAGER at their facility following. High risk for aspiration and given transient nature suspect this was the driving etiology of hypoxia. CXR with unclear opacification, then obtained lateral view which showed some streakiness c/f atelectasis vs infection. Given lack of fevers, cough, and leukocytosis, low clinical suspicion for pneumonia and will defer Abx for now. - Continue pureed diet - Deferring ADVERTISING MANAGER for now - Nutrition consulted, appreciate recs [...] Brother - Disposition: -- Anticipated discharge to: detention facility -- Anticipated discharge date: t+1 -- Anticipated discharge barriers: Completion of evaluation for altered mental status Extended Emergency Contact Information Primary Emergency Contact: Delvin Raymundo Mobile Relation: Brother Powder Coater needed? No Juliet Becerra MD Dept of [...] Jono Aviles MD Section of Hospital Medicine [facility] * Noe Ruiz MD - 04/18/2025 2:11 PM EDT Images from the original note were not included. [facility] Department of Medicine [facility] Medicine Progress Note Patient: Carter Raymundo Admission [...] patient is currently on pureed diet with ADVERTISING MANAGER at their facility following. High risk for aspiration and given transient nature suspect this was the driving etiology of hypoxia. CXR with unclear opacification, then obtained lateral view which showed some streakiness c/f atelectasis vs infection. Given lack of fevers, cough, and leukocytosis, low clinical suspicion for pneumonia and will defer Abx for now. - Continue pureed diet - Deferring ADVERTISING MANAGER for now - Nutrition consulted, appreciate recs [...] Brother - Disposition: -- Anticipated discharge to: detention facility -- Anticipated discharge date: t+1 -- Anticipated discharge barriers: Completion of evaluation for altered mental status Extended Emergency Contact Information Primary Emergency Contact: Delvin Raymundo Mobile Relation: Brother Powder Coater needed? No Noe Ruiz MD Dept of [...] Jono Aviles MD Section of Hospital Medicine [facility] * Sherman Zayas MD - 04/18/2025 9:11 AM EDT Images from the original note were not included. [facility] PSYCHIATRIC CONSULTATION FOLLOW-UP NOTE INTERVAL: -No acute [...] Patient does request more food. Asks this sign writer letterer or painter to order him a second breakfast of [...] had to go in, family would prefer [place]. Patient reportedly has been psychiatrically stablefor several decades and has not had any recent hospitalizations. REVIEW OF SYSTEMS: Positive for HPI, otherwise negative. EXAM: 04/18/2025 7:47 AM Vital Signs Temperature 98.6 ??F (37 ??C) Heart Rate 92 Respiration 18 SpO2 96 % Blood Pressure 138/90 [facility] catatonia rating scale: Excitement: 0 Immobility/stupor: [...] to year, month, late March. Oriented to [facility]. Disoriented to situation. Attention: Patient somewhat [...] to recall further presidents. Language: Fluent in Grenadian without any paraphasic errors. Executive function: Deferred Mental Status: Appearance: Older man, appears stated age. Wearing hospital gown. Not appearing diaphoretic. Adequate grooming and hygiene given hospital setting. Sitting up in bed. Not appearing to be in acute distress. Behavior: Patient looks at this sign writer letterer or painter, engages in interview. No irritability or hostility. [...] Negative 04/16/2025 Lab Results Component Value Date [id number] 438 04/14/2024 Lab Results Component Value Date [...] 98 BPM Atrial Heart Rate 98 BPM VT Interval 156 ms QRSD Interval 108 ms QT Interval 392 ms QTC Interval 500 ms P [place] 63 degrees R [place] -23 degrees T Wave [place] 65 degrees Narrative Normal sinus rhythm Minimal voltage criteria for LVH, may be normal variant ( [place] product ) Prolonged QT interval Abnormal ECG [...] follow Sherman Zayas MD Psychiatry PGY3 Pager [phone] [1] atorvaSTATin, 20 mg, G-tube, QHS buPROPion, [...] Goetz MD - 04/17/2025 9:45 PM EDT [facility] PSYCHIATRIC CONSULTATION FOLLOW-UP NOTE INTERVAL HPI: 69 [...] knowledge: Does not answer Language: Fluent in Grenadian Executive function: Does not answer Mental Status: [...] Negative 04/16/2025 Lab Results Component Value Date [id number] 438 04/14/2024 Lab Results Component Value Date [...] 91 BPM Atrial Heart Rate 91 BPM VT Interval 146 ms QRSD Interval 100 ms QT Interval 390 ms QTC Interval 479 ms P [place] 43 degrees R [place] -27 degrees T Wave [place] 61 degrees Narrative --- Poor data quality, [...] from the original note were not included. [facility] Department of Medicine [facility] Medicine Progress Note Patient: Carter Raymundo Admission [...] patient is currently on pureed diet with ADVERTISING MANAGER at their facility following. High risk for aspiration and given transient nature suspect this was the driving etiology of hypoxia. CXR with unclear opacification, then obtained lateral view which showed some streakiness c/f atelectasis vs infection. Given lack of fevers, cough, and leukocytosis, low clinical suspicion for pneumonia and will defer Abx for now. - Continue pureed diet - Consider ADVERTISING MANAGER re-evaluation here - Consider nutrition consult for [...] Brothmarisa - Disposition: -- Anticipated discharge to: detention facility -- Anticipated discharge date: t+1 -- Anticipated discharge barriers: Completion of evaluation for altered mental status Extended Emergency Contact Information Primary Emergency Contact: Delvin Raymundo Mobile Relation: Brother Powder Coater needed? No Juliet Becerra MD Dept of [...] need further collateral regarding his situation at [facility]. His DC plan is not yet clear to me. Bonifacio Agudelo MD Section of Hospital Medicine [facility] documented in this encounter H&P Notes * Peña Salas MD - 04/16/2025 2:44 PM EDT Images from the original note were not included. [facility] Department of Medicine [facility] Medicine Admission Note Patient: Carter Raymundo Admission [...] Raymundo was brought in by EMS from [facility] yesterday evening. He was found unresponsive at 5:30 PM at [facility] after being baseline at 4:15 PM. He was not talking orresponding and was noted to have facial asymmetry, initially described as a possible left facial droop. He had declined all of his medications that morning. Upon discussion with the patient, Mr. Raymundo reports he currently feels fine. Upon asking what happened yesterday, he reports the staff at [facility] have been tormenting him and trying to [...] devised a plan to get out of [facility] by faking a stroke. He reports this plan was a success and is adamant that he does not want to return to [facility], stating he would prefer to live on his own. Upon further questioning of the events that occurred while he was unresponsive, Mr. Raymundo could not accurately recall them (he did not believe that he was brought to the hospital from [facility] by ambulance). Review of systems notable per [...] 70 mL (70 mL Intravenous Given 04/15/25 2102) LORazepam (ATIVAN) injection 1 mg (1 mg Intravenous Given 04/16/25 0025) acetaminophen (TYLENOL) tablet 1,000 mg (1,000 mg G-tube Given 04/16/25 0947) [facility] Past Medical History[1] Social History and Family History were reviewed in [facility]. MEDICATIONS PAML Complete Prior to Admission medications [...] Guarded. Expresses paranoid beliefs. LABS reviewed in [facility], notable as above. STUDIES reviewed in [facility], notable as above. ASSESSMENT & PLAN Carter [...] patient is currently on pureed diet with ADVERTISING MANAGER at their facility following. High risk for aspiration and given transient nature suspect this was the driving etiology of hypoxia. CXR with unclear opacification, then obtained lateral view which showed some streakiness c/f atelectasis vs infection. Given lack of fevers, cough, and leukocytosis, low clinical suspicion for pneumonia and will defer Abx for now. - Continue pureed diet - Consider ADVERTISING MANAGER re-evaluation here - Consider nutrition consult for [...] brother, - Disposition: -- Anticipated discharge to: detention facility -- Anticipated discharge date: t+1 -- [...] available laboratory, report, and imaging data in [facility]. I have reviewed the above note and I agree with the documented history, exam, and plan which I helped to formulate today, with the exception of any modifications or additions as notedbelow. This is a 69-year-old man with history of CAD, CKD, HTN, BPH, recurrent aspiration s/p PEG tube placement, schizoaffective disorder and drug-induced parkinsonism who presented from [facility] with unresponsiveness, and expressive aphasia. Code stroke [...] that he doesn't want to return to [facility] specifically. Will plan to resume home psychotropic medications as per psych recs and hold further doses of benzodiazepines at this time. Otherwise will stop antibiotics and monitor on continuous O2 with aspiration precautions. Will involve PT/CM in the morning for dispo planning. Chuy Hernandez MD Section of Hospital Medicine [facility] 04/16/2025 documented in this encounter Consult Notes [...] creative works that will be better than [employer]. Denied any wishes, SI/HI, and AH/VH. Non-pressured speech.No acute thought or behavioral disorganization. No excessive psychomotor activity or agitation. Cognitively, oriented to person, [facility], June 14, 2024, and superficially to situation; [...] resident note on 06/15. Saundra Soliman MD Supervisor Paint Roller Covers, [facility] Psychiatric Consultation-Liaison Service Pager [phone] ([phone] for urgent questions and on nights/weekends/holidays) * Nedra Rader MS CCC-ADVERTISING MANAGER - 06/03/2025 1:25 PM EDT Speech-Language Pathology [...] Recommend pt continue to partake in conservative ADVERTISING MANAGER PO trials of ice chips and ?? [...] help improve AMS/delirium with normal meal times. ADVERTISING MANAGER consult placed to help problem solve dysphagia and PO nutrition. Teamed with Patricia Holden MD with primary team. Reviewed hx dysphagia per prior ADVERTISING MANAGER notes and that is probable that pt is still aspirating with PO. Given nature of aspirationhas been silent in past, clinical bedside swallow evaluation would have little utility and not be areliable assessment requiring instrumental swallow assessment. As this is a chronic dysphagia and pt has stable route for nutrition, ADVERTISING MANAGER will be unable to complete repeat VFSS/FEES this date. Option remains to complete instrumental reassessment as census allows (anticipated next week) and pt remains appropriate. If pt were to d/c prior to ADVERTISING MANAGER eval, assessment can be completed as OP. ADVERTISING MANAGER to follow. Nedra Rader MS CCC-ADVERTISING MANAGER Speech Language Pathologist Pager # [phone] 06/03/25 1:47 PM * Amaya Goetz MD - 2025 9:51 PM EDT Images from the original note were not included. [facility] Division of Pulmonary, Critical Care & Sleep [...] Gases: No results found for: PHARTL , PVH3IAF , PO2ART , [id number] Microbiology: Results for orders placed or performed [...] should he further worsen. Gavin Lozada MD [facility] Pulmonary and Critical Care * Kimi Correa MD - 05/11/2025 11:14 PM EDTAssociated Order(s): IP CONSULT TO INTERVENTIONAL RADIOLOGY Interventional Radiology Inpatient Consult 05/11/25 REASON FOR CONSULT: Dislodged g-tube HPI: Carter Raymundo (BID #: [id number]) is a 69 y.o. male with schizoaffective disorder, drug-inducedparkinsonism, with intermittent episodes of agitation that has unfortunately led to the dislodgement of his g-tube. G-tube was initially placed 12/2024 by surgery at [facility], was last rescued via bedside exchange by [...] injection 40 mg 40 mg Subcutaneous Q24H [facility] Juliet Becerra MD 40 mg at famotidine [...] has gastrostomy tube placed by surgery in [facility] in December of this year. Patient pulled [...] supine. A pre-procedure time-out was performed per [facility] protocol. The upper abdomen and tube site [...] drug-induced parkinsonism, chronic aspiration, s/p PEG 02/13 ([facility]) p/w c/f stroke 04/15, now with dislodged [...] READ:~No acute intracranial abnormality. Angel Luis Tompkins [phone] [id number]. BY ELECTRONICALLY SIGNING THIS REPORT, I THE [...] large vascular territory infarction or hemorrhage. ~~Patent [place] without evidence of substantial stenosis or occlusion.~~Patent bilateral cervical carotid and vertebral arteries without evidence of stenosis >70% by NASCET criteria, occlusion, or dissection .~~Full read pending by neuroradiology. ~ Valentin Mena [id number]: BY ELECTRONICALLY SIGNING THIS REPORT, I THE [...] drug-induced parkinsonism, chronic aspiration, s/p PEG 02/13 (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 Agustina Garcia LCSW [id number] * Nicole Ramirez - 04/17/2025 9:39 AM EDTAssociated Order(s): NURSING CONSULT TO DIETITIAN; IP CONSULT TO NUTRITION SERVICES NUTRITION INITIAL NOTE SUBJECTIVE: Lying in bed, reports eating is going poorly at [facility] & continues to lose weight. Reports getting tube feeds intermittently & sometimes takes puree POs. Endorses a UBW of 170 lbs months ago & a current weight of 153 lbs. Per phone-call discussion w/ RN at [facility], RNconfirms home tube feed regimen below, runs [...] 70.9 kg (sitting scale; 04/13/25) - per [facility] *anthros 88.1 kg ([facility]; 01/20/23) 97.5 kg [...] [facility] feed regimen ([facility] TwoCal HN @ 50 mL/hr x20 hrs [...] requiring tube feeds. Estimated Nutrition Needs: Calories: 3388-3354 kcal (25-30 kcal/kg) Protein: 85-106 g (1.2-1.5 g/kg) Fluids: 8414-8914 mL (25-30 mL/kg) Estimated Needs Calculated Usin.9 kg (156 lb 4.9 oz) (adjusted weight) Estimation of previous intake: Adequate Estimation of current intake: Adequate Specifics: 69M w/ PMHx significant for HTN, CKD, schizoaffective disorder, and drug-induced parkinsonism. Presented to [facility] on 04/15/25 w/ unresponsiveness, asphasia, & possible [...] on ad vancing POs at rehab. Appreciate dba manager of POs + tube feeds. Noted major [...] continue to follow, please message or page [phone] with any questions/concerns Signed by: Nicole Ramirez, MS, RD, LDN 04/17/25 1:13 PM * Laila Skelton RN - 04/17/2025 8:51 AM EDTAssociated Order(s): WOUND CONSULT Images from the original note were not included. Wound Care Consult Date of Service: 04/17/2025 Patient: Carter Raymundo : 1955 CSN: [id number] Location: [facility] fa9 med Room/Bed: 4S/4-2 Admit Date: 04/15/2025 [...] Wound Type - Irritant Contact Dermatitis: (c) Programming Development Project Manager Related: No Primar... Assessments 04/17/2025 8:00 AM [...] Mata MD - 04/16/2025 10:36 AM EDT [facility] PSYCHIATRIC CONSULTATION - INITIAL NOTE I performed [...] qHS. I spoke with patient's brother, Delvin ([phone]). Pt went to [facility] following [facility] [place] [place]. Around the procedure, his clozapine dose was reduced from 175mg to 125mg. Thedose was never increased back to 175mg following the procedure. The pt developed worsening paranoia, I.e. worried criminals were hacking into his bank account. Last week, Delvin contacted his psychiatrist (Dr. Kayla Corral @[facility], ). Clozapine dose was increased to 25mg [...] 1.50 04/15/2025 Lab Results Component Value Date [id number] 11 04/15/2025 Lactic Acid 0.9 Last EKG ECG 12 lead Collection Time: 04/14/24 7:06 PM Result Value Ref Range Ventricular Heart Rate 91 BPM Atrial Heart Rate 91 BPM VT Interval 146 ms QRSD Interval 100 ms QT Interval 390 ms QTC Interval 479 ms P [place]osed[place] 43 degrees R [place]osed[place] -27 degrees T Wave [place] 61 degrees Narrative --- Poor data quality, [...] 6:40 PM Narrative EXAMINATION: CTA HEAD/NECK STROKE [id number] CT HEAD NECK. INDICATION: 69-year-old male with [...] normal. CTA HEAD: The vessels of the [place] and their principal intracranial branches [...] large vascular territory infarction or hemorrhage. ~~Patent [place] without evidence of substantial stenosis or occlusion.~~Patent bilateral cervical carotid and vertebral arteries without evidence of stenosis >70% by NASCET criteria, occlusion, or dissection .~~Full read pending by neuroradiology. ~ Valentin Mena [id number] [id number]: BY ELECTRONICALLY SIGNING THIS REPORT, I THE [...] acute or recent infarction. HOME MEDICATIONS (per [facility]): -bupropion 100mg TID -clozapine 150mg QHS [...] of space Total score: 28 Premorbid Modified Stevenson Score: 4 - Moderately severe disability - unable to attend to own bodily needs without assistance and unable to walk unassisted Date: 04/15/25 Time: 6:58 PM Subjective Carter Raymundo is 69 y.o.M w/ HTN, PD, schizoaffective disorder, CKD who presents with aphasia andpossible L facial droop. Carter was found unresponsive at 5:30 PM at his retirement after being at baseline at 4:15 PM. 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 Substance and Sexual Activity Alcohol Use No [...] 0.3 0.0 - 1.0 % Immature Granulocyte ([place], Myelo, Promyelocyte) 0.8 (H) 0.0 - 0.6 % Absolute Neutrophil Count 7.07 (H) 1.60 - 6.10 K/uL Absolute Lymphocyte Count 1.23 1.20 - 3.70 K/uL Absolute Monocyte Count 0.71 0.20 - 0.80 K/uL Absolute Eosinophil Count 0.00 (L) 0.04 - 0.54 K/uL Absolute Basophil Count 0.03 0.01 - 0.08 K/uL Absolute Immature Granulocyte ([place], Myelo, Promyelocyte) 0.07 0.00 - 0.09 K/uL ECG 12 lead Collection Time: 04/15/25 6:53 PM Result Value Ref Range Ventricular Heart Rate 98 BPM Atrial Heart Rate 98 BPM VT Interval 156 ms QRSD Interval 108 ms QT Interval 392 ms QTC Interval 500 ms P [place] 63 degrees R [place] -23 degrees T Wave [place] [address]/CTA Head and Neck 04/15/25 WET READ: This is a wet read. Noncontrast CT head: [no evidence of acute large vascular territory infarction or hemorrhage.] [place] without evidence of substantial stenosis [...] MD, PhD PGY4 Child Neurology Residency Program [facility] Pager #[phone] ADDENDUM 04/16/25: MRI BRAIN WET READ: No [...] Ramirez. Yuridia??n P??renetta Lucero MD Neurology, PGY-3 [id number] Addendum (11:26 AM): Re-examined in AM, no additional workup from neurologic standpoint needed as above. We will sign off. Cecily Palafox MD PhD [facility] Neurology Rotator [1] Social History Tobacco Use [...] from the original note were not included. [facility] Department of Neurology NEUROLOGY ATTENDING CONSULT ATTESTATION [...] LKW 1615, found altered at 1730 by [facility] staff. ?facial droop. Not answering questions. * Edwin Conner MD - 04/15/2025 6:10 PM EDT [facility] FA9 MEDICINE ED Provider Note Arrival Date: [...] was brought in by EMS from [facility]. Per EMS patient was acting at his [...] large vascular territory infarction or hemorrhage.] [place] without evidence of substantial stenosis [...] from the original note were not included. [facility] Case Management Discharge Note Estimated time of discharge: 5pm; BLS ambulance booked. CM discharge Plan: IP Psych Facility [facility] [address] [place] [id number] Case Management comments: Please send with AVS for acute, section 12 order. RN was provided handoff phone # by psych admissions team. Transportation: BLS MD will notify brother/HCP of discharge. Demetra White [facility] [phone] * Plan of Care - Yu Gunderson [...] - 06/21/2025 5:55 AM EDT Alert, oriented. +[place]. Working on his writing during the beginning of the shift. VSS. Sat stable onRA. TF running via PEG, cycled [id number]. Meds crushed via PEG. Able to take [...] If CL Psychiatry is needed, please contact [phone] for overnight or weekend psychiatric emergencies. * [...] Progressing Problem: Behavior risks interference with medical office specialist(s) and/or care Goal: Patient remains free from [...] Progressing Problem: Behavior risks interference with medical office specialist(s) and/or care Goal: Patient remains free from [...] Progressing Problem: Behavior risks interference with medical office specialist(s) and/or care Goal: Patient remains free from [...] Progressing Problem: Behavior risks interference with medical office specialist(s) and/or care Goal: Patient remains free from [...] Progressing Problem: Behavior risks interference with medical office specialist(s) and/or care Goal: Patient remains free from [...] Progressing Problem: Behavior risks interference with medical office specialist(s) and/or care Goal: Patient remains free from [...] Progressing Problem: Behavior risks interference with medical office specialist(s) and/or care Goal: Patient remains free from [...] Progressing Problem: Behavior risks interference with medical office specialist(s) and/or care Goal: Patient remains free from [...] Progressing Problem: Behavior risks interference with medical office specialist(s) and/or care Goal: Patient remains free from [...] no bm this shift Bed alarmed for safety equipment testing specialist in place Problem: Pain - Adult Goal: [...] Progressing Problem: Behavior risks interference with medical office specialist(s) and/or care Goal: Patient remains free from [...] Progressing Problem: Behavior risks interference with medical office specialist(s) and/or care Goal: Patient remains free from [...] Progressing Problem: Behavior risks interference with medical office specialist(s) and/or care Goal: Patient remains free from [...] Progressing Problem: Behavior risks interference with medical office specialist(s) and/or care Goal: Patient remains free from [...] Progressing Problem: Behavior risks interference with medical office specialist(s) and/or care Goal: Patient remains free from [...] Progressing Problem: Behavior risks interference with medical office specialist(s) and/or care Goal: Patient remains free from [...] Progressing Problem: Behavior risks interference with medical office specialist(s) and/or care Goal: Patient remains free from [...] Progressing Problem: Behavior risks interference with medical office specialist(s) and/or care Goal: Patient remains free from [...] Shirley Barrios MD PGY2 - Psychiatry Pager: [phone] * Plan of Care - Rachna Stein [...] Progressing Problem: Behavior risks interference with medical office specialist(s) and/or care Goal: Patient remains free from [...] Progressing Problem: Behavior risks interference with medical office specialist(s) and/or care Goal: Patient remains free from [...] Progressing Problem: Behavior risks interference with medical office specialist(s) and/or care Goal: Patient remains free from [...] Progressing Problem: Behavior risks interference with medical office specialist(s) and/or care Goal: Patient remains free from [...] Progressing Problem: Behavior risks interference with medical office specialist(s) and/or care Goal: Patient remains free from [...] Progressing Problem: Behavior risks interference with medical office specialist(s) and/or care Goal: Patient remains free from [...] Progressing Problem: Behavior risks interference with medical office specialist(s) and/or care Goal: Patient remains free from [...] CPT consult pending improved behaviors. Please page window covering sales consultant PT with questions or concerns. Time: 946 Physical Therapist Name: Taylor Verde PT, DPT #[id number] Physical Therapist Pager: [phone] For questions please check the patient???s care [...] Progressing Problem: Behavior risks interference with medical office specialist(s) and/or care Goal: Patient remains free from [...] from the original note were not included. [facility] Department of Medicine [facility] Trigger Note Patient: Carter Raymundo Attending of [...] Progressing Problem: Behavior risks interference with medical office specialist(s) and/or care Goal: Patient remains free from [...] Progressing Problem: Behavior risks interference with medical office specialist(s) and/or care Goal: Patient remains free from [...] Progressing Problem: Behavior risks interference with medical office specialist(s) and/or care Goal: Patient remains free from [...] Progressing Problem: Behavior risks interference with medical office specialist(s) and/or care Goal: Patient remains free from [...] Progressing Problem: Behavior risks interference with medical office specialist(s) and/or care Goal: Patient remains free from [...] Progressing Problem: Behavior risks interference with medical office specialist(s) and/or care Goal: Patient remains free from [...] Progressing Problem: Behavior risks interference with medical office specialist(s) and/or care Goal: Patient remains free from [...] Non-Medical), if any: PEG/TF Comments: Admitted from [facility] were he was for STR. Current plan is discharge to inpatient psych; on section 12, medically cleared. Psych team following. TF ordered via peg. CM following. Demetra White RNCM [phone] * Plan of Care - Manohar Meza [...] Progressing Problem: Behavior risks interference with medical office specialist(s) and/or care Goal: Patient remains free from behavior that interferes with medical devices and/or care and restraints are discontinued as soon as indicated Outcome: Not Progressing * Plan of Care - uY Gunderson RN - 05/21/2025 6:17 PM EDT Unable to assess orientation level pt refusing to answer. Afternoon lactulose held per pt having large loose BM's MD Stakrs aware. Pt becoming combative and refusing tube [...] Progressing Problem: Behavior risks interference with medical office specialist(s) and/or care Goal: Patient remains free from [...] Progressing Problem: Behavior risks interference with medical office specialist(s) and/or care Goal: Patient remains free from [...] Progressing Problem: Behavior risks interference with medical office specialist(s) and/or care Goal: Patient remains free from [...] Progressing Problem: Behavior risks interference with medical office specialist(s) and/or care Goal: Patient remains free from [...] Progressing Problem: Behavior risks interference with medical office specialist(s) and/or care Goal: Patient remains free from [...] Progressing Problem: Behavior risks interference with medical office specialist(s) and/or care Goal: Patient remains free from [...] Progressing Problem: Behavior risks interference with medical office specialist(s) and/or care Goal: Patient remains free from [...] Progressing Problem: Behavior risks interference with medical office specialist(s) and/or care Goal: Patient remains free from [...] about patient progress throughout the shift. At [facility] 1845, patient began thrashing around in bed and spitting at staff members in the room, IMAtivan administered Problem: Pain - Adult Goal: Verbalizes/displays adequate comfort level or baseline comfort level Outcome: Progressing Problem: Safety-Adult Goal: Free from fall injury Outcome: Progressing Problem: Coping Goal: Patient/family/caregiver able to verbalize concerns and demonstrate effective coping strategies Outcome: Not Progressing Problem: Behavior risks interference with medical office specialist(s) and/or care Goal: Patient remains free from [...] staff and states that information in the [employer] television is nonsense but is unable to [...] Mai RN - 05/13/2025 10:50 PM EDT [id number]. Pt cooperative with Cloud[employer]. 1:1 sitter at bedside. Safety maintained. Problem: [...] Non-Medical), if any: PEG/TF Comments: Admitted from [facility] were he was for STR. Current plan is discharge to inpatient psych; on section 12, medically cleared. Psych team following. TF ordered via peg. CM following. Demetra White RNCM [phone] * Plan of Care - Jaspreet Mai [...] Spoke with Marilyn Raygoza, patient's outpatient neurologist ([phone]) She has known patient for a few [...] today; would review progress note from this sign writer letterer or painter from 05/11 in regards to scheduled medications, as well as liaison communication note per Dr. Faith Keene for new agitation management recommendations. Psychiatry will continue to follow Mr. Raymundo. Kiamni Rivas MD Psychiatry PGY2 [id number] * Liaison Communication - Faith Keene MD [...] able to report back currently location at [facility] correctly; otherwise, unable to engage in further [...] the above [place] [phone] for additional recommendations. Per chart review, there [...] If ongoing agitation[place] [phone] for additional recommendations if un-responsive Faith Keene MD Psychiatry PGY2 Discussed case with PGY4 Eric Mg MD Addendum EKG: HR 95, QT 394, Bazett 496 ms, Calhoun 451 ms, Doll 455 ms * Significant [...] be administered, MD aware. Pt repositioned by medical staff services coordinator's and security. * Plan of Care - Arlene Best RN - 05/11/2025 7:08 PM EDT Alert. Pt verbally aggressive, making inappropriate and vulgar statements to staff. Pt attempting to be physically violent with staff. Accepted AM med pass after multiple attempts. Refused PM med pass. TF held from [id number] as ordered. 1:1 sitter present this shift. [...] VSShannon RA. Disorganized thinking. TF held from [id number] as [address]wick in place collecting dark [...] Progressing Problem: Behavior risks interference with medical office specialist(s) and/or care Goal: Patient remains free from [...] Progressing Problem: Behavior risks interference with medical office specialist(s) and/or care Goal: Patient remains free from [...] Progressing Problem: Behavior risks interference with medical office specialist(s) and/or care Goal: Patient remains free from [...] Progressing Problem: Behavior risks interference with medical office specialist(s) and/or care Goal: Patient remains free from [...] Progressing Problem: Behavior risks interference with medical office specialist(s) and/or care Goal: Patient remains free from behavior that interferes with medical devices and/or care and restraints are discontinued as soon as indicated Outcome: Not Progressing * Significant Event - Francesco Boyle MD - 05/07/2025 6:04 PM EDT Images from the original note were not included. [facility] Department of Medicine [facility] Trigger Note Patient: [...] MPH PGY-2, Internal Medicine - Primary Care [facility], [id number] * Care Coordination Note - Demetra White RN - 05/07/2025 3:06 PM EDT Images from the original note were not included. Case Management Continued Stay Note Has patient been discussed in MDR?:Yes Estimated Date of Discharge: medically cleared; pending inpatient psych bed Plan: I/P psych; section 12; 1:1 Anticipated barriers (Medical & Non-Medical), if any: PEG/TF Comments: Admitted from [facility] were he was for STR. Current plan is discharge to inpatient psych; on section 12, medically cleared. Psych team following. TF ordered via peg. CM following. Demetra White RNCM [phone] * Plan of Care - Param Beltrán [...] Progressing Problem: Behavior risks interference with medical office specialist(s) and/or care Goal: Patient remains free from [...] Progressing Problem: Behavior risks interference with medical office specialist(s) and/or care Goal: Patient remains free from [...] Progressing Problem: Behavior risks interference with medical office specialist(s) and/or care Goal: Patient remains free from [...] Progressing Problem: Behavior risks interference with medical office specialist(s) and/or care Goal: Patient remains free from [...] Progressing Problem: Behavior risks interference with medical office specialist(s) and/or care Goal: Patient remains free from [...] Progressing Problem: Behavior risks interference with medical office specialist(s) and/or care Goal: Patient remains free from [...] Progressing Problem: Behavior risks interference with medical office specialist(s) and/or care Goal: Patient remains free from [...] s/p PEG tube placement who presented from [facility] with symptoms of decreased verbal output, unresponsiveness, [...] devised a plan to get out of [facility] by faking a stroke. He reports that this plan was a success and is adamant that he does not want to return to [facility], stating that he would prefer to live [...] Progressing Problem: Behavior risks interference with medical office specialist(s) and/or care Goal: Patient remains free from [...] Progressing Problem: Behavior risks interference with medical office specialist(s) and/or care Goal: Patient remains free from [...] Non-Medical), if any: PEG/TF Comments: Admitted from [facility] were he was for STR. Current plan is discharge to inpatient psych; on section 12, when medically cleared. Psych team following. TF ordered via peg. CM following. Demetra White RNCM [phone] * Plan of Care - Angel Luis [...] Progressing Problem: Behavior risks interference with medical office specialist(s) and/or care Goal: Patient remains free from [...] Progressing Problem: Behavior risks interference with medical office specialist(s) and/or care Goal: Patient remains free from [...] Progressing Problem: Behavior risks interference with medical office specialist(s) and/or care Goal: Patient remains free from [...] Progressing Problem: Behavior risks interference with medical office specialist(s) and/or care Goal: Patient remains free from [...] Non-Medical), if any: PEG/TF Comments: Admitted from [facility] were he was for STR. Current plan is discharge to inpatient psych; on section 12. Psych team following. TF ordered via peg. Also ordered for modified PO diet. PT following. CM following. Demetra White RNCM [phone] * Plan of Care - Kadie Adams [...] from the original note were not included. [facility] Department of Medicine [facility] Trigger Note Patient: Carter Raymundo Attending of Record: Bonifacio Agudelo MD Location: [facility] fa9 [facility] Room/Bed: 4S/[facility]-2 Advanced Care Planning: Full Code. Clinician called [...] Bonifacio Agudelo MD Section of Hospital Medicine [facility] * Significant Event - Rena Swift RN [...] RADIOLOGY OPERATIVE NOTE Procedure(s): G tube rescue Librarian Helper(s): MD Luiza Posada MD Pre-operative Diagnosis: Dysphagia [...] in 6 [place] [phone] for ANY questions or concerns. * Plan [...] with saline and covered with clean/dry/dressing. Radiology INDUSTRIAL AUTOMATION ENGINEER was able to replace tube at bedside [...] from the original note were not included. [facility] Case Management Admission Note Admitted from: Custodial Facility ([facility] Transfer from an acute care hospital? No Readmission within 30 days? No Previously active with services? No Health Care Proxy in the chart?: Yes Guardian? No Cárdenas? No MOLST? No Workmen's Compensation? (If yes, please also indicate name of insurer, claim #, damage adjuster if applicable) No Notified [employer]?: No Vehicle Accident? (If yes, please also indicate name of insurer, claim #, damage adjuster if applicable) No Payor Concerns?: No Anticipated Case Management Action: The Nurse Batch Plant Supervisor will continue to follow the patient and assist as needed if any post discharge needs should be required during this hospitalization. Has the patient, their community representative, or physician requested a discharge planning evaluation? Yes Was the patient discussed in Multidisciplinary Rounds (MDR)?: Yes Initial Care Coordination Assessment Patient: Carter Raymundo : 1955 Attending: Bonifacio Agudelo MD Admit Date: 04/15/2025 Inpatient Status Admit Date: 04/16/25 Primary Care Physician: Kilo Huynh Discharge Planning Lives with: Other (Comment) (permanent residence is [facility]; admitted from [facility] at [facility]) In the last 12 months, was there a time when you were not able to pay the mortgage or rent on time?: No Support Systems: Family members Type of Residence: detention facility, Assisted living Home Care Services: No [...] and participates with care. Patient admitted from [facility] where he was for STR. Spoke with MITESH Sterling ph: [phone] at [facility] who states that patient was receiving PT, OT and ADVERTISING MANAGER services; states that the was participatory and that they had been working to advance his diet so that he does not require TF. He lives at [facility] and they cannot care for a peg with TF. [facility] is able to accept back, pending patient's [...] Consider starting BP medication. [] Re-evaluation with ADVERTISING MANAGER once he has had increased improvement in [...] he was medically stable and accepted at [facility] for continued psychiatric care and support. [...] was able to work with PT and ADVERTISING MANAGER. However, at the same time he also [...] and SI. He was a ccepted to [facility] on 06/25. # Oropharyngeal Dysphagia with [...] improvements in mental status, could re- consider ADVERTISING MANAGER and video swallow. Discussion with HCP that he hopes Carter will be eventually able to transition from the G tube back to PO after swallow therapy. ADVERTISING MANAGER conversation 06/11 with barium swallow - still aspirating but improvement from prior. Per ADVERTISING MANAGER onreview of his long history of dysphagia [...] Patient was brought in by EMS from [facility]. Brought here unresponsive initially activated code [...] Ayala MD - 04/15/2025 6:10 PM EDT [facility] Emergency Department ED ATTESTATION NOTE I was [...] CKD who presents with AMS. BIBEMS from [facility], ALLYSS[place] 4:15pm. On room check at [...] large vascular territory infarction or hemorrhage.] [place] without evidence of substantial stenosis [...] 13.5 (*) Eosinophil 0.0 (*) Immature Granulocyte ([place], Myelo, Promyelocyte) 0.8 (*) Absolute Neutrophil Count [...] RSV - Normal Narrative: Test performed by [facility] real-time PCR. BID UA WITH URINE CULTURE REFLEX Narrative: The following orders were created for panel order Urinalysis with Reflex to Urine Culture. Procedure Abnormality Status --------- ------ Urinalysis with Reflex t...[[id number]] Abnormal Final result Urine Micro Hold[[id number]] Final result Please view results for these tests on the individual orders. BID URINE HOLD TOXICOLOGY SCREEN, BLOOD POCT GLUCOSE, INSTRUMENT TYPE AND SCREEN BB RETYPE CBC AND DIFFERENTIAL Narrative: The following orders were created for panel order CBC and Differential. Procedure Abnormality Status --------- ------ CBC and Differential[[id number]] Abnormal Final result Please view results for these tests on the individual orders. RAINBOW DRAW RAINBOW DRAW Imaging I reviewed the following imaging studies: MRI Brain Without Contrast Final Result No acute intracranial abnormality. Specifically, no acute or recent infarction. WET READ: WET READ:~No acute intracranial abnormality. Angel Luis Tompkins [phone] [id number]. BY ELECTRONICALLY SIGNING THIS REPORT, I THE [...] large vascular territory infarction or hemorrhage. ~~Patent [place] without evidence of substantial stenosis or occlusion.~~Patent bilateral cervical carotid and vertebral arteries without evidence of stenosis >70% by NASCET criteria, occlusion, or dissection .~~Full read pending by neuroradiology. ~ Valentin Mena [phone] [id number]: BY ELECTRONICALLY SIGNING THIS REPORT, I THE [...] ECG 12-LEAD Routine 06/11/2025 11:23 AM EDT [facility] current use of therapeutic drug FL MODIFIED [...] ECG 12-LEAD Routine 05/25/2025 12:17 PM EDT [facility] current use of therapeutic drug VALPROIC ACID [...] 04/23/2025 7:21 AM EDT [facility] VEEG BY CPower EA INCR 12-26 HR UNMONITORED Routine 04/23/2025 [...] Heart Rate 101 BPM EKG BUR MUSE VT Interval 142 ms EKG BUR MUSE QRSD Interval 108 ms EKG BUR MUSE QT Interval 372 ms EKG BUR MUSE QTC Interval 482 ms EKG BUR MUSE P [place] 30 degrees EKG BUR MUSE R [place] -29 degrees EKG BUR MUSE T Wave [place] 30 degrees EKG BUR MUSE 06/25/2025 11:1 [...] ECG ORDERABLES Final Result EKG KATH BOLIVAR [address] [place] [id number] * (ABNORMAL) Renal Function Panel (06/22/2025 5:26 AM EDT) Sodium 142 135 - 147 mmol/L 06/22/2025 6:44 AM EDT [facility] Potassium 4.2 3.5 - 5.4 mmol/L 06/22/2025 6:44 AM EDT [facility] Chloride 103 96 - 108 mmol/L 06/22/2025 6:44 AM EDT [facility] Total CO2/Bicarbonate 28 22 - 32 mmol/L 06/22/2025 6:44 AM EDT [facility] Anion Gap 11 10 - 18 mmol/L 06/22/2025 6:44 AM EDT [facility] BUN 27(H) 6 - 20 mg/dL 06/22/2025 6:44 AM EDT [facility] Creatinine, Blood 0.80 0.50 - 1.20 mg/dL 06/22/2025 6:44 AM EDT [facility] Glucose, Blood 141(H) 70 - 100 mg/dL 06/22/2025 6:44 AM EDT [facility] Calcium 9.0 8.4 - 10.3 mg/dL 06/22/2025 6:44 AM EDT [facility] Albumin, Blood 3.1(L) 3.5 - 5.2 g/dL 06/22/2025 6:44 AM EDT [facility] Phosphorus 3.7 2.7 - 4.5 mg/dL 06/22/2025 6:44 AM EDT [facility] Magnesium, Blood 2.2 1.6 - 2.6 mg/dL 06/22/2025 6:44 AM EDT [facility] Estimated GFR(CKD-EPI) 96 mL/min/BSA 06/22/2025 6:44 AM EDT [facility] Blood PERIPHERAL BLOOD SPECIMEN / Unknown Venipuncture / Unknown 06/22/2025 5:26 AM EDT 06/22/2025 5:47 AM EDT us Govind Olivo MD LAB BLOOD ORDERABLES Final Result [facility] [address] [place] [address], * (ABNORMAL) CBC and Differential (06/22/2025 12:37 AM EDT) WBC 6.62 4.00 - 10.00 K/uL 06/22/2025 1:15 AM EDT [facility] RBC 3.67(L) 4.60 - 6.10 M/uL 06/22/2025 1:15 AM EDT [facility] Hemoglobin 11.3(L) 13.7 - 17.5 g/dL 06/22/2025 1:15 AM EDT [facility] Hematocrit 34.7(L) 40.0 - 51.0 % 06/22/2025 1:15 AM EDT [facility] MCV 95 82 - 98 fL 06/22/2025 1:15 AM EDT [facility] MCH 30.8 26.0 - 32.0 pg 06/22/2025 1:15 AM EDT [facility] MCHC 32.6 32.0 - 37.0 g/dL 06/22/2025 1:15 AM EDT [facility] RDW 15.5 10.5 - 15.5 % 06/22/2025 1:15 AM EDT [facility] RDW-SD 53.1(H) 35.1 - 46.3 fL 06/22/2025 1:15 AM [facility] Platelet Count 185 150 - 400 K/uL 06/22/2025 1:15 AM [facility] Nucleated RBC 0 <=0 #/100 WBC 06/22/2025 1:15 AM [facility] Neutrophil 67.5 34.0 - 71.0 % 06/22/2025 1:15 AM [facility] Lymphocyte 20.1 19.0 - 53.0 % 06/22/2025 1:15 AM [facility] Monocyte 10.6 5.0 - 13.0 % 06/22/2025 1:15 AM [facility] Eosinophil 0.0(L) 1.0 - 7.0 % 06/22/2025 1:15 AM [facility] Basophil 0.3 0.0 - 1.0 % 06/22/2025 1:15 AM [facility] Immature Granulocyte ([place], Myelo, Promyelocyte) 1.5(H) 0.0 - 0.6 % 06/22/2025 1:15 AM [facility] Absolute Neutrophil Count 4.47 1.60 - 6.10 K/uL 06/22/2025 1:15 AM [facility] Absolute Lymphocyte Count 1.33 1.20 - 3.70 K/uL 06/22/2025 1:15 AM [facility] Absolute Monocyte Count 0.70 0.20 - 0.80 K/uL 06/22/2025 1:15 AM [facility] Absolute Eosinophil Count 0.00(L) 0.04 - 0.54 K/uL 06/22/2025 1:15 AM [facility] Absolute Basophil Count 0.02 0.01 - 0.08 K/uL 06/22/2025 1:15 AM [facility] Absolute Immature Granulocyte ([place], Myelo, Promyelocyte) 0.10(H) 0.00 - 0.09 K/uL 06/22/2025 1:15 AM [facility] Blood PERIPHERAL BLOOD SPECIMEN / Unknown Venipuncture / Unknown 06/22/2025 12:37 AM EDT 06/22/2025 1:04 AM EDT Govind Olivo MD LAB BLOOD ORDERABLES Final Result Performing Organization Address City/[facility]/ZIP Co de Phone Number [facility] [address] [place] [address], [place] * ECG 12 lead (06/18/2025 11:54 AM EDT) Ventricular Heart Rate 101 BPM EKG BUR MUSE Atrial Heart Rate 101 BPM EKG BUR MUSE VT Interval 142 ms EKG BUR MUSE QRSD Interval 98 ms EKG BUR MUSE QT Interval 376 ms EKG BUR MUSE QTC Interval 487 ms EKG BUR MUSE P [place] 43 degrees EKG BUR MUSE R [place] -26 degrees EKG BUR MUSE T Wave [place] 56 degrees EKG BUR MUSE 06/18/2025 11:5 [...] Final Resul t EKG BUR MUSE [address] [place] [address] * XR Abdomen 1 VW (06/16/2025 1:33 [...] Jun 16 2025 04:33PM Govind Olivo MD [facility] Final Result * (ABNORMAL) Valproic Acid Level (06/15/2025 9:42 PM EDT) Valproic Acid Level, Blood 49(L) 50 - 100 ug/mL 06/15/2025 10:29 PM EDT [facility] Blood PERIPHERAL BLOOD SPECIMEN / Unknown Venipuncture / Unknown 06/15/2025 9:42 PM EDT 06/15/2025 9:45 PM EDT Govind Olivo MD LAB BLOOD ORDERABLES Final Result Performing Organization Address City/[facility]/ZIP Co de Phone Number [facility] [address] [place] [address], [place] * Clozapine Level, Blood (06/15/2025 9:41 PM EDT) Norclozapine 88 25 - 400 mcg/L 06/19/2025 3:00 PM EDT [facility] Clozapine 224 mcg/L 06/19/2025 3:00 PM EDT [facility] Comment: The therapeutic response begins to appear at 100 mcg/L. Refractory schizophrenia appears to require a therapeutic concentration of at least 350 mcg/L (trough, at steady state). Toxic range: Greater than 900 mcg/L This test was developed and its analytical performance characteristics have been determined by [employer] [place], [place]. It has not been cleared or approved by the U.S. Food and Drug Administration. This assay has been validated pursuant to the CLIA regulations and is used for clinical purposes. Blood PERIPHERAL BLOOD SPECIMEN / Unknown Venipuncture / Unknown 06/15/2025 9:41 PM EDT 06/15/2025 9:45 PM EDT Narrative [facility] - 06/19/2025 3:00 PM EDT Performing Organization Information: Site ID: [id number] Name: [employer] Address: [address] [place] [address] Director: LEONEL RUIZ MD,PHD us Govind Olivo MD LAB BLOOD ORDERABLES Final Result Performing Organization Address City/[facility]/ZIP Co de Phone Number [facility] [address] [place] [address], [place] [phone] * Valproic Acid Level, Free (06/15/2025 9:41 PM EDT) [facility] Valproic Acid, Free 13.7 4.8 - 17.3 mg/L 06/19/2025 3:00 PM EDT [facility] Comment: Nonlinear drug binding properties result in the fraction of free valproic acid increasing as total drug increases. The free valproic acid fraction may range from 5% to 25% for the total drug range of 30-160 mg/L. Blood PERIPHERAL BLOOD SPECIMEN / Unknown Venipuncture / Unknown 06/15/2025 9:41 PM EDT 06/15/2025 9:45 PM EDT Narrative [facility] - 06/19/2025 3:00 PM EDT Performing Organization Information: Site ID: [id number] Name: [employer] Address: [address] [place] [id number] Director: FIDEL CRAWFORD MD Govind Olivo MD LAB BLOOD ORDERABLES Final Result [address] [address], * ECG 12 lead (06/15/2025 12:56 PM EDT) [facility] Ventricular Heart Rate 97 BPM EKG BUR MUSE Atrial Heart Rate 97 BPM EKG BUR MUSE VT Interval 142 ms EKG BUR MUSE QRSD Interval 104 ms EKG BUR MUSE QT Interval 382 ms EKG BUR MUSE QTC Interval 485 ms EKG BUR MUSE P [place] 76 degrees EKG BUR MUSE R [place] -33 degrees EKG BUR MUSE T Wave [place] 69 degrees EKG BUR MUSE 06/15/2025 12:5 [...] MD ECG ORDERABLES Final Resul t EKG [address] [address] * (ABNORMAL) CBC (06/15/2025 6:23 AM EDT) WBC 8.69 4.00 - 10.00 K/uL 06/15/2025 6:52 AM EDT [facility] RBC 3.83(L) 4.60 - 6.10 M/uL 06/15/2025 6:52 AM EDT [facility] Hemoglobin 11.6(L) 13.7 - 17.5 g/dL 06/15/2025 6:52 AM EDT [facility] Hematocrit 36.2(L) 40.0 - 51.0 % 06/15/2025 6:52 AM EDT [facility] MCV 95 82 - 98 fL 06/15/2025 6:52 AM EDT [facility] MCH 30.3 26.0 - 32.0 pg 06/15/2025 6:52 AM EDT [facility] MCHC 32.0 32.0 - 37.0 g/dL 06/15/2025 6:52 AM EDT [facility] RDW 14.5 10.5 - 15.5 % 06/15/2025 6:52 AM EDT [facility] RDW-SD 49.3(H) 35.1 - 46.3 fL 06/15/2025 6:52 AM EDT [facility] Platelet Count 256 150 - 400 K/uL 06/15/2025 6:52 AM EDT [facility] Nucleated RBC 0 <=0 #/100 WBC 06/15/2025 6:52 AM EDT [facility] Blood PERIPHERAL BLOOD SPECIMEN / Unknown Venipuncture / Unknown 06/15/2025 6:23 AM EDT 06/15/2025 6:36 AM EDT Urban Mondragon MD LAB BLOOD ORDERABLES Final Resul t [facility] [address] [place] [address], [place] * Phosphorus (06/15/2025 6:22 AM EDT) Phosphorus 3.4 2.7 - 4.5 mg/dL 06/15/2025 7:14 AM EDT [facility] Blood PERIPHERAL BLOOD SPECIMEN / Unknown Venipuncture / Unknown 06/15/2025 6:22 AM EDT 06/15/2025 6:36 AM EDT Urban Mondragon MD LAB BLOOD ORDERABLES Final Resul t Performing Organization Address City/[facility]/ZIP Co de Phone Number [facility] [address] [place] [address], [place] * Magnesium (06/15/2025 6:22 AM EDT) Magnesium, Blood 2.1 1.6 - 2.6 mg/dL 06/15/2025 7:14 AM EDT [facility] Blood PERIPHERAL BLOOD SPECIMEN / Unknown Venipuncture / Unknown 06/15/2025 6:22 AM EDT 06/15/2025 6:36 AM EDT Urban Mondragon MD LAB BLOOD ORDERABLES Final Resul t [facility] [address] [place] [address], [place] * (ABNORMAL) Basic Metabolic Panel (06/15/2025 6:22 AM EDT) Sodium 142 135 - 147 mmol/L 06/15/2025 7:14 AM EDT [facility] Potassium 4.2 3.5 - 5.4 mmol/L 06/15/2025 7:14 AM EDT [facility] Chloride 104 96 - 108 mmol/L 06/15/2025 7:14 AM EDT [facility] Total CO2/Bicarbonat e 29 22 - 32 mmol/L 06/15/2025 7:14 AM EDT [facility] Anion Gap 9(L) 10 - 18 mmol/L 06/15/2025 7:14 AM EDT [facility] BUN 28(H) 6 - 20 mg/dL 06/15/2025 7:14 AM EDT [facility] Creatinine, Blood 0.90 0.50 - 1.20 mg/dL 06/15/2025 7:14 AM EDT [facility] Glucose, Blood 109(H) 70 - 100 mg/dL 06/15/2025 7:14 AM EDT [facility] Calcium 8.9 8.4 - 10.3 mg/dL 06/15/2025 7:14 AM EDT [facility] Blood PERIPHERAL BLOOD SPECIMEN / Unknown Venipuncture / Unknown 06/15/2025 6:22 AM EDT 06/15/2025 6:36 AM EDT us Urban Mondragon MD LAB BLOOD ORDERABLES Final Resul t [facility] [address] [place] [address], * (ABNORMAL) Hepatic Function Panel (06/15/2025 6:22 AM EDT) Total Protein 5.9(L) 6.4 - 8.3 g/dL 06/15/2025 7:32 AM EDT [facility] Albumin, Blood 2.9(L) 3.5 - 5.2 g/dL 06/15/2025 7:32 AM EDT [facility] Globulin Result 3.0 2.0 - 4.0 g/dL 06/15/2025 7:32 AM EDT [facility] Total Bilirubin 0.2 0.0 - 1.5 mg/dL 06/15/2025 7:32 AM EDT [facility] Direct Bilirubin <0.1 0.0 - 0.3 mg/dL 06/15/2025 7:32 AM EDT [facility] Alkaline Phosphatase 117 40 - 130 U/L 06/15/2025 7:32 AM EDT [facility] AST (SGOT) 22 0 - 40 U/L 06/15/2025 7:32 AM EDT [facility] ALT (SGPT) 14 0 - 40 U/L 06/15/2025 7:32 AM EDT [facility] Blood PERIPHERAL BLOOD SPECIMEN / Unknown Venipuncture / Unknown 06/15/2025 6:22 AM EDT 06/15/2025 6:36 AM EDT us Urban Mondragon MD LAB BLOOD ORDERABLES Final Resul t Performing Organization Address City/[facility]/ZIP Co de Phone Number [facility] [address] [place] [address], [place] * Phosphorus (06/12/2025 6:57 AM EDT) Phosphorus 3.0 2.7 - 4.5 mg/dL 06/12/2025 8:03 AM EDT [facility] Blood PERIPHERAL BLOOD SPECIMEN / Unknown Venipuncture / Unknown 06/12/2025 6:57 AM EDT 06/12/2025 7:22 AM EDT us Urban Mondragon MD LAB BLOOD ORDERABLES Final Resul t [facility] [address] [place] [address], [place] * Magnesium (06/12/2025 6:57 AM EDT) Magnesium, Blood 2.2 1.6 - 2.6 mg/dL 06/12/2025 8:03 AM EDT [facility] Blood PERIPHERAL BLOOD SPECIMEN / Unknown Venipuncture / Unknown 06/12/2025 6:57 AM EDT 06/12/2025 7:22 AM EDT us Urban Mondragon MD LAB BLOOD ORDERABLES Final Resul t [facility] [address] [place] [address], [place] * (ABNORMAL) Basic Metabolic Panel (06/12/2025 6:57 AM EDT) Sodium 142 135 - 147 mmol/L 06/12/2025 8:03 AM EDT [facility] Potassium 4.1 3.5 - 5.4 mmol/L 06/12/2025 8:03 AM EDT [facility] Chloride 104 96 - 108 mmol/L 06/12/2025 8:03 AM EDT [facility] Total CO2/Bicarbonat e 29 22 - 32 mmol/L 06/12/2025 8:03 AM EDT [facility] Anion Gap 9(L) 10 - 18 mmol/L 06/12/2025 8:03 AM EDT [facility] BUN 28(H) 6 - 20 mg/dL 06/12/2025 8:03 AM EDT [facility] Creatinine, Blood 0.90 0.50 - 1.20 mg/dL 06/12/2025 8:03 AM EDT [facility] Glucose, Blood 128(H) 70 - 100 mg/dL 06/12/2025 8:03 AM EDT [facility] Calcium 9.0 8.4 - 10.3 mg/dL 06/12/2025 8:03 AM EDT [facility] Blood PERIPHERAL BLOOD SPECIMEN / Unknown Venipuncture / Unknown 06/12/2025 6:57 AM EDT 06/12/2025 7:22 AM EDT us Urban Mondragon MD LAB BLOOD ORDERABLES Final Resul t [facility] [address] [place] [address], [place] * (ABNORMAL) Hepatic Function Panel (06/12/2025 6:57 AM EDT) Total Protein 6.0(L) 6.4 - 8.3 g/dL 06/12/2025 8:03 AM EDT [facility] Albumin, Blood 3.0(L) 3.5 - 5.2 g/dL 06/12/2025 8:03 AM EDT [facility] Globulin Result 3.0 2.0 - 4.0 g/dL 06/12/2025 8:03 AM EDT [facility] Total Bilirubin 0.2 0.0 - 1.5 mg/dL 06/12/2025 8:03 AM EDT [facility] Direct Bilirubin 0.1 0.0 - 0.3 mg/dL 06/12/2025 8:03 AM EDT [facility] Alkaline Phosphatase 123 40 - 130 U/L 06/12/2025 8:03 AM EDT [facility] AST (SGOT) 18 0 - 40 U/L 06/12/2025 8:03 AM EDT [facility] ALT (SGPT) 13 0 - 40 U/L 06/12/2025 8:03 AM EDT [facility] Blood PERIPHERAL BLOOD SPECIMEN / Unknown Venipuncture / Unknown 06/12/2025 6:57 AM EDT 06/12/2025 7:22 AM EDT us Urban Mondragon MD LAB BLOOD ORDERABLES Final Resul t [facility] [address] [place] [address], * (ABNORMAL) CBC (06/12/2025 6:57 AM EDT) WBC 11.56(H) 4.00 - 10.00 K/uL 06/12/2025 7:48 AM EDT [facility] RBC 3.91(L) 4.60 - 6.10 M/uL 06/12/2025 7:48 AM EDT [facility] Hemoglobin 12.0(L) 13.7 - 17.5 g/dL 06/12/2025 7:48 AM EDT [facility] Hematocrit 37.1(L) 40.0 - 51.0 % 06/12/2025 7:48 AM EDT [facility] MCV 95 82 - 98 fL 06/12/2025 7:48 AM EDT [facility] MCH 30.7 26.0 - 32.0 pg 06/12/2025 7:48 AM EDT [facility] MCHC 32.3 32.0 - 37.0 g/dL 06/12/2025 7:48 AM EDT [facility] RDW 13.9 10.5 - 15.5 % 06/12/2025 7:48 AM EDT [facility] RDW-SD 46.5(H) 35.1 - 46.3 fL 06/12/2025 7:48 AM EDT [facility] Platelet Count 312 150 - 400 K/uL 06/12/2025 7:48 AM EDT [facility] Nucleated RBC 0 <=0 #/100 WBC 06/12/2025 7:48 AM EDT [facility] Blood PERIPHERAL BLOOD SPECIMEN / Unknown Venipuncture / Unknown 06/12/2025 6:57 AM EDT 06/12/2025 7:23 AM EDT us Urban Mondragon MD LAB BLOOD ORDERABLES Final Resul t [facility] [address] [place] [address], * (ABNORMAL) POCT Glucose (06/11/2025 1:54 PM EDT) Glucose, POC 118(H) 70 - 100 mg/dL 06/11/2025 2:05 PM EDT [facility] Comment: @Serial Ucuuan=[id number] @Librarian Helper NA=[id number] Blood 06/11/2025 1:54 PM EDT 06/11/2025 2:05 PM EDT us Feliciano Choi MD POCT ORDERABLES - DEVICE Patricia l Result [facility] [address] [facility] [address] [place] [address], [place] * ECG 12 lead (06/11/2025 11:23 AM EDT) Ventricular Heart Rate 87 BPM EKG B[facility] MUSE Atrial Heart Rate 87 BPM EKG [facility] VT Interval 136 ms EKG [facility]USE QRSD Interval 98 ms EKG [facility]USE QT Interval 402 ms EKG [facility]USE QTC Interval 483 ms EKG B[facility] MUSE P [place] 68 degrees EKG BUR MUSE R [place] -31 degrees EKG B[facility] MUSE T Wave [place] 39 degrees EKG BUR MUSE 06/11/2025 11:2 [...] ECG ORDERABLES Final Result EKG BUR MUSE [address] [place] [id number] * [place] Modified Barium Swallow Incl Speech [...] - 10.00 K/uL 06/10/2025 9:52 AM EDT [facility] Neutrophil 85.5(H) 34.0 - 71.0 % 06/10/2025 9:52 AM [facility] Lymphocyte 7.7(L) 19.0 - 53.0 % 06/10/2025 9:52 AM [facility] Monocyte 5.6 5.0 - 13.0 % 06/10/2025 9:52 AM [facility] Eosinophil 0.0(L) 1.0 - 7.0 % 06/10/2025 9:52 AM [facility] Basophil 0.4 0.0 - 1.0 % 06/10/2025 9:52 AM [facility] Nucleated RBC 0 <=0 #/100 WBC 06/10/2025 9:52 AM [facility] Absolute Neutrophil Count 16.18(H) 1.60 - 6.10 K/uL 06/10/2025 9:52 AM [facility] Absolute Lymphocyte Count 1.45 1.20 - 3.70 K/uL 06/10/2025 9:52 AM [facility] Absolute Monocyte Count 1.06(H) 0.20 - 0.80 K/uL 06/10/2025 9:52 AM [facility] Absolute Eosinophil Count 0.00(L) 0.04 - 0.54 K/uL 06/10/2025 9:52 AM [facility] Absolute Basophil Count 0.07 0.01 - 0.08 K/uL 06/10/2025 9:52 AM [facility] Immature Granulocyte ([place], Myelo, Promyelocyte) 0.8(H) 0.0 - 0.6 % 06/10/2025 9:52 AM [facility] Absolute Immature Granulocyte ([place], Myelo, Promyelocyte) 0.16(H) 0.00 - 0.09 K/uL 06/10/2025 9:52 AM [facility] Blood PERIPHERAL BLOOD SPECIMEN / Unknown Venipuncture / Unknown 06/10/2025 7:20 AM EDT 06/10/2025 7:30 AM EDT us Feliciano Choi MD LAB BLOOD ORDERABLES Final Re sult [facility] [address] [place] [address], [place] * Phosphorus (06/10/2025 7:20 AM EDT) Phosphorus 3.0 2.7 - 4.5 mg/dL 06/10/2025 8:03 AM EDT [facility] Blood PERIPHERAL BLOOD SPECIMEN / Unknown Venipuncture / Unknown 06/10/2025 7:20 AM EDT 06/10/2025 7:30 AM EDT us Urban Mondragon MD LAB BLOOD ORDERABLES Final Resul t Performing Organization Address City/[facility]/ZIP Co de Phone Number [facility] 1 [place] [address], [place] * Magnesium (06/10/2025 7:20 AM EDT) Magnesium, Blood 2.3 1.6 - 2.6 mg/dL 06/10/2025 8:03 AM EDT [facility] Blood PERIPHERAL BLOOD SPECIMEN / Unknown Venipuncture / Unknown 06/10/2025 7:20 AM EDT 06/10/2025 7:30 AM EDT Urban Mondragon MD LAB BLOOD ORDERABLES Final Resul t Performing Organization Address City/[facility]/ZIP Co de Phone Number [facility] [address] [place] [address], [place] * (ABNORMAL) Basic Metabolic Panel (06/10/2025 7:20 AM EDT) Sodium 142 135 - 147 mmol/L 06/10/2025 8:03 AM EDT [facility] Potassium 4.2 3.5 - 5.4 mmol/L 06/10/2025 8:03 AM EDT [facility] Chloride 105 96 - 108 mmol/L 06/10/2025 8:03 AM EDT [facility] Total CO2/Bicarbonat e 28 22 - 32 mmol/L 06/10/2025 8:03 AM EDT [facility] Anion Gap 9(L) 10 - 18 mmol/L 06/10/2025 8:03 AM EDT [facility] BUN 35(H) 6 - 20 mg/dL 06/10/2025 8:03 AM EDT [facility] Creatinine, Blood 0.90 0.50 - 1.20 mg/dL 06/10/2025 8:03 AM EDT [facility] Glucose, Blood 161(H) 70 - 100 mg/dL 06/10/2025 8:03 AM EDT [facility] Calcium 8.8 8.4 - 10.3 mg/dL 06/10/2025 8:03 AM EDT [facility] Blood PERIPHERAL BLOOD SPECIMEN / Unknown Venipuncture / Unknown 06/10/2025 7:20 AM EDT 06/10/2025 7:30 AM EDT us Urban Mondragon MD LAB BLOOD ORDERABLES Final Resul t [facility] [address] [place] [address], [place] * (ABNORMAL) Hepatic Function Panel (06/10/2025 7:20 AM EDT) Total Protein 6.3(L) 6.4 - 8.3 g/dL 06/10/2025 8:03 AM EDT [facility] Albumin, Blood 3.0(L) 3.5 - 5.2 g/dL 06/10/2025 8:03 AM EDT [facility] Globulin Result 3.3 2.0 - 4.0 g/dL 06/10/2025 8:03 AM EDT [facility] Total Bilirubin 0.2 0.0 - 1.5 mg/dL 06/10/2025 8:03 AM EDT [facility] Direct Bilirubin 0.1 0.0 - 0.3 mg/dL 06/10/2025 8:03 AM EDT [facility] Alkaline Phosphatase 125 40 - 130 U/L 06/10/2025 8:03 AM EDT [facility] AST (SGOT) 19 0 - 40 U/L 06/10/2025 8:03 AM EDT [facility] ALT (SGPT) 13 0 - 40 U/L 06/10/2025 8:03 AM EDT [facility] Blood PERIPHERAL BLOOD SPECIMEN / Unknown Venipuncture / Unknown 06/10/2025 7:20 AM EDT 06/10/2025 7:30 AM EDT us Urban Mondragon MD LAB BLOOD ORDERABLES Final Resul t [facility] [address] [place] [address], [place] * (ABNORMAL) CBC (06/10/2025 7:20 AM EDT) WBC 19.00(H) 4.00 - 10.00 K/uL 06/10/2025 7:55 AM EDT [facility] RBC 4.13(L) 4.60 - 6.10 M/uL 06/10/2025 7:55 AM EDT [facility] Hemoglobin 12.8(L) 13.7 - 17.5 g/dL 06/10/2025 7:55 AM EDT [facility] Hematocrit 38.9(L) 40.0 - 51.0 % 06/10/2025 7:55 AM EDT [facility] MCV 94 82 - 98 fL 06/10/2025 7:55 AM EDT [facility] MCH 31.0 26.0 - 32.0 pg 06/10/2025 7:55 AM EDT [facility] MCHC 32.9 32.0 - 37.0 g/dL 06/10/2025 7:55 AM EDT [facility] RDW 13.7 10.5 - 15.5 % 06/10/2025 7:55 AM EDT [facility] RDW-SD 45.8 35.1 - 46.3 fL 06/10/2025 7:55 AM EDT [facility] Platelet Count 307 150 - 400 K/uL 06/10/2025 7:55 AM EDT [facility] Nucleated RBC 0 <=0 #/100 WBC 06/10/2025 7:55 AM EDT [facility] Blood PERIPHERAL BLOOD SPECIMEN / Unknown Venipuncture / Unknown 06/10/2025 7:20 AM EDT 06/10/2025 7:30 AM EDT Urban Mondragon MD LAB BLOOD ORDERABLES Final Resul t [facility] [address] [place] [address], [place] * (ABNORMAL) POCT Glucose (06/08/2025 12:13 PM EDT) Glucose, POC 132(H) 70 - 100 mg/dL 06/08/2025 1:24 PM EDT [facility] Comment: @Serial [id number] @Librarian Helper [id number] Blood 06/08/2025 12:1 3 PM EDT 06/08/2025 1:24 PM EDT Feliciano Choi MD POCT ORDERABLES - DEVICE Patricia l Result Performing Organization Address City/[facility]/ZIP Co de Phone Number [facility] [address] [place] [address], [place] * Phosphorus (06/08/2025 7:52 AM EDT) Phosphorus 2.9 2.7 - 4.5 mg/dL 06/08/2025 8:57 AM EDT [facility] Blood PERIPHERAL BLOOD SPECIMEN / Unknown Venipuncture / Unknown 06/08/2025 7:52 AM EDT 06/08/2025 7:58 AM EDT us Urban Mondragon MD LAB BLOOD ORDERABLES Final Resul t [facility] [address] [place] [address], [place] * Magnesium (06/08/2025 7:52 AM EDT) Magnesium, Blood 2.2 1.6 - 2.6 mg/dL 06/08/2025 8:57 AM EDT [facility] Blood PERIPHERAL BLOOD SPECIMEN / Unknown Venipuncture / Unknown 06/08/2025 7:52 AM EDT 06/08/2025 7:58 AM EDT us Urban Mondragon MD LAB BLOOD ORDERABLES Final Resul t [facility] [address] [place] [address], [place] * (ABNORMAL) Basic Metabolic Panel (06/08/2025 7:52 AM EDT) Sodium 143 135 - 147 mmol/L 06/08/2025 8:57 AM EDT [facility] Potassium 4.3 3.5 - 5.4 mmol/L 06/08/2025 8:57 AM EDT [facility] Chloride 106 96 - 108 mmol/L 06/08/2025 8:57 AM EDT [facility] Total CO2/Bicarbonat e 28 22 - 32 mmol/L 06/08/2025 8:57 AM EDT [facility] Anion Gap 9(L) 10 - 18 mmol/L 06/08/2025 8:57 AM EDT [facility] BUN 31(H) 6 - 20 mg/dL 06/08/2025 8:57 AM EDT [facility] Creatinine, Blood 0.80 0.50 - 1.20 mg/dL 06/08/2025 8:57 AM EDT [facility] Glucose, Blood 130(H) 70 - 100 mg/dL 06/08/2025 8:57 AM EDT [facility] Calcium 8.7 8.4 - 10.3 mg/dL 06/08/2025 8:57 AM EDT [facility] Estimated GFR(CKD-EPI) 96 mL/min/BSA 06/08/2025 8:57 AM EDT [facility] Blood PERIPHERAL BLOOD SPECIMEN / Unknown Venipuncture / Unknown 06/08/2025 7:52 AM EDT 06/08/2025 7:58 AM EDT us Urban Mondragon MD LAB BLOOD ORDERABLES Final Resul t [facility] [address] [place] [address], [place] * (ABNORMAL) Hepatic Function Panel (06/08/2025 7:52 AM EDT) Total Protein 6.0(L) 6.4 - 8.3 g/dL 06/08/2025 8:57 AM EDT [facility] Albumin, Blood 2.8(L) 3.5 - 5.2 g/dL 06/08/2025 8:57 AM EDT [facility] Globulin Result 3.2 2.0 - 4.0 g/dL 06/08/2025 8:57 AM EDT [facility] Total Bilirubin 0.2 0.0 - 1.5 mg/dL 06/08/2025 8:57 AM EDT [facility] Direct Bilirubin 0.1 0.0 - 0.3 mg/dL 06/08/2025 8:57 AM EDT [facility] Alkaline Phosphatase 124 40 - 130 U/L 06/08/2025 8:57 AM EDT [facility] AST (SGOT) 20 0 - 40 U/L 06/08/2025 8:57 AM EDT [facility] ALT (SGPT) 14 0 - 40 U/L 06/08/2025 8:57 AM EDT [facility] Blood PERIPHERAL BLOOD SPECIMEN / Unknown Venipuncture / Unknown 06/08/2025 7:52 AM EDT 06/08/2025 7:58 AM EDT us Urban Mondragon MD LAB BLOOD ORDERABLES Final Resul t Performing Organization Address City/[facility]/ZIP Co de Phone Number [facility] [address] [place] [address], [place] * (ABNORMAL) CBC (06/08/2025 7:52 AM EDT) WBC 14.29(H) 4.00 - 10.00 K/uL 06/08/2025 8:04 AM EDT [facility] RBC 4.24(L) 4.60 - 6.10 M/uL 06/08/2025 8:04 AM EDT [facility] Hemoglobin 12.8(L) 13.7 - 17.5 g/dL 06/08/2025 8:04 AM EDT [facility] Hematocrit 40.2 40.0 - 51.0 % 06/08/2025 8:04 AM EDT [facility] MCV 95 82 - 98 fL 06/08/2025 8:04 AM EDT [facility] MCH 30.2 26.0 - 32.0 pg 06/08/2025 8:04 AM EDT [facility] MCHC 31.8(L) 32.0 - 37.0 g/dL 06/08/2025 8:04 AM EDT [facility] RDW 13.2 10.5 - 15.5 % 06/08/2025 8:04 AM EDT [facility] RDW-SD 45.3 35.1 - 46.3 fL 06/08/2025 8:04 AM EDT [facility] Platelet Count 295 150 - 400 K/uL 06/08/2025 8:04 AM EDT [facility] Nucleated RBC 0 <=0 #/100 WBC 06/08/2025 8:04 AM EDT [facility] Blood PERIPHERAL BLOOD SPECIMEN / Unknown Venipuncture / Unknown 06/08/2025 7:52 AM EDT 06/08/2025 7:59 AM EDT us Urban Mondragon MD LAB BLOOD ORDERABLES Final Resul t [facility] [address] [place] [address], * (ABNORMAL) POCT Glucose (06/08/2025 6:00 AM EDT) Glucose, POC 137(H) 70 - 100 mg/dL 06/08/2025 6:02 AM EDT [facility] Comment: @Serial [id number] @Librarian Helper OE=[id number] Blood 06/08/2025 6:00 AM EDT 06/08/2025 6:02 AM EDT us Mariano Maloney MD POCT ORDERABLES - DEVICE Final R esult Performing Organization Address [facility] de Phone Number [facility] [address] [place] [address], [place] * (ABNORMAL) POCT Glucose (06/07/2025 6:35 PM EDT) Glucose, POC 102(H) 70 - 100 mg/dL 06/07/2025 6:39 PM EDT [facility] Comment: @Serial [id number]=[id number] @Librarian Helper YV=[id number] Blood 06/07/2025 6:35 PM EDT 06/07/2025 6:39 PM EDT us Mariano Maloney MD POCT ORDERABLES - DEVICE Final R esult Performing Organization Address [facility] de Phone Number [facility] [address] [place] [address], [place] * (ABNORMAL) POCT Glucose (06/07/2025 11:57 AM EDT) Glucose, POC 111(H) 70 - 100 mg/dL 06/07/2025 11:58 AM EDT [facility] Comment: @Serial Uylqeo=[id number] @Librarian Helper [id number] Blood 06/07/2025 11:5 7 AM EDT 06/07/2025 11:58 AM EDT us Mariano Maloney MD POCT ORDERABLES - DEVICE Final R esult Performing Organization Address [facility] de Phone Number [facility] [address] [place] [address], [place] * (ABNORMAL) POCT Glucose (06/07/2025 5:59 AM EDT) Glucose, POC 129(H) 70 - 100 mg/dL 06/07/2025 6:01 AM EDT [facility] Comment: @Serial Nyfwal=[id number] @Librarian Helper [id number] Blood 06/07/2025 5:59 AM EDT 06/07/2025 6:01 AM EDT us Mariano Maloney MD POCT ORDERABLES - DEVICE Final R esult Performing Organization Address City/[facility]/ZIP Co de Phone Number [address] [address], [place] * (ABNORMAL) POCT Glucose (06/06/2025 11:54 PM EDT) Glucose, POC 116(H) 70 - 100 mg/dL 06/06/2025 11:56 PM EDT [facility] Comment: @Serial [id number] @Librarian Helper [id number] Blood 06/06/2025 11:5 4 PM EDT 06/06/2025 11:56 PM EDT us Mariano Maloney MD POCT ORDERABLES - DEVICE Final R esult Performing Organization Address [facility]/ZIP Co de Phone Number [facility] [address] [place] [address], [place] * (ABNORMAL) POCT Glucose (06/06/2025 5:43 PM EDT) Glucose, POC 115(H) 70 - 100 mg/dL 06/06/2025 5:49 PM EDT [facility] Comment: @Serial Lgbjgg=[id number] @Librarian Helper DD=[id number] Blood 06/06/2025 5:43 PM EDT 06/06/2025 5:49 PM EDT us Mariano Maloney MD POCT ORDERABLES - DEVICE Final R esult [facility] [address] [place] [address], [place] * (ABNORMAL) POCT Glucose (06/06/2025 2:14 PM EDT) Glucose, POC 110(H) 70 - 100 mg/dL 06/06/2025 2:22 PM EDT [facility] Comment: @Serial Jddwoc=[id number] @Librarian Helper SH=[id number] Blood 06/06/2025 2:14 PM EDT 06/06/2025 2:22 PM EDT Mariano Maloney MD POCT ORDERABLES - DEVICE Final R esult Performing Organization Address [facility] de Phone Number [facility] [address] [facility] [place] [address], [place] * (ABNORMAL) POCT Glucose (06/06/2025 6:41 AM EDT) Glucose, POC 133(H) 70 - 100 mg/dL 06/06/2025 6:43 AM EDT [facility] Comment: @Serial [id number]=[id number] @Librarian Helper LE=[id number] Blood 06/06/2025 6:41 AM EDT 06/06/2025 6:43 AM EDT us Urban Mondragon MD POCT ORDERABLES - DEVICE Final R esult Performing Organization Address [facility] de Phone Number [address] [place] [address], [place] * (ABNORMAL) POCT Glucose (06/05/2025 5:36 PM EDT) Glucose, POC 127(H) 70 - 100 mg/dL 06/05/2025 5:37 PM EDT [facility] Comment: @Serial Jpjigz=[id number] @Librarian Helper [id number] Blood 06/05/2025 5:36 PM EDT 06/05/2025 5:37 PM EDT us Urban Mondragon MD POCT ORDERABLES - DEVICE Final R esult Performing Organization Address [facility] Co de Phone Number [place] [id number], [place] * (ABNORMAL) POCT Glucose (06/05/2025 6:13 AM EDT) Glucose, POC 148(H) 70 - 100 mg/dL 06/05/2025 6:14 AM EDT [facility] Comment: @Serial [id number]=[id number] @Librarian Helper HI=[id number] Blood 06/05/2025 6:13 AM EDT 06/05/2025 6:14 AM EDT Urban Mondragon MD POCT ORDERABLES - DEVICE Final R esult [facility] [address] [facility] [place] [address], [place] * Phosphorus (06/05/2025 5:53 AM EDT) Phosphorus 3.3 2.7 - 4.5 mg/dL 06/05/2025 7:29 AM EDT [facility] Blood PERIPHERAL BLOOD SPECIMEN / Unknown Venipuncture / Unknown 06/05/2025 5:53 AM EDT 06/05/2025 6:37 AM EDT us Rabia Velasco MD LAB BLOOD ORDERABLES Final Resul t [facility] [address] [place] [address], [place] * Magnesium (06/05/2025 5:53 AM EDT) Magnesium, Blood 2.2 1.6 - 2.6 mg/dL 06/05/2025 7:29 AM EDT [facility] Blood PERIPHERAL BLOOD SPECIMEN / Unknown Venipuncture / Unknown 06/05/2025 5:53 AM EDT 06/05/2025 6:37 AM EDT us Rabia Velasco MD LAB BLOOD ORDERABLES Final Resul t [facility] [address] [place] [address], [place] * (ABNORMAL) Basic Metabolic Panel (06/05/2025 5:53 AM EDT) Pathologist [facility] Sodium 142 135 - 147 mmol/L 06/05/2025 7:29 AM EDT [facility] Potassium 4.0 3.5 - 5.4 mmol/L 06/05/2025 7:29 AM EDT [facility] Chloride 105 96 - 108 mmol/L 06/05/2025 7:29 AM EDT [facility] Total CO2/Bicarbonat e 29 22 - 32 mmol/L 06/05/2025 7:29 AM EDT [facility] Anion Gap 8(L) 10 - 18 mmol/L 06/05/2025 7:29 AM EDT [facility] BUN 34(H) 6 - 20 mg/dL 06/05/2025 7:29 AM EDT [facility] Creatinine, Blood 0.90 0.50 - 1.20 mg/dL 06/05/2025 7:29 AM EDT [facility] Glucose, Blood 141(H) 70 - 100 mg/dL 06/05/2025 7:29 AM EDT [facility] Calcium 8.7 8.4 - 10.3 mg/dL 06/05/2025 7:29 AM EDT [facility] Blood PERIPHERAL BLOOD SPECIMEN / Unknown Venipuncture / Unknown 06/05/2025 5:53 AM EDT 06/05/2025 6:37 AM EDT us Rabia Velasco MD LAB BLOOD ORDERABLES Final Resul t [facility] [address] [place] [address], [place] * (ABNORMAL) CBC (06/05/2025 5:53 AM EDT) Pathologist [facility] WBC 12.02(H) 4.00 - 10.00 K/uL 06/05/2025 7:06 AM EDT [facility] RBC 4.05(L) 4.60 - 6.10 M/uL 06/05/2025 7:06 AM EDT [facility] Hemoglobin 12.3(L) 13.7 - 17.5 g/dL 06/05/2025 7:06 AM EDT [facility] Hematocrit 38.7(L) 40.0 - 51.0 % 06/05/2025 7:06 AM EDT [facility] MCV 96 82 - 98 fL 06/05/2025 7:06 AM EDT [facility] MCH 30.4 26.0 - 32.0 pg 06/05/2025 7:06 AM EDT [facility] MCHC 31.8(L) 32.0 - 37.0 g/dL 06/05/2025 7:06 AM EDT [facility] RDW 13.2 10.5 - 15.5 % 06/05/2025 7:06 AM EDT [facility] RDW-SD 46.1 35.1 - 46.3 fL 06/05/2025 7:06 AM EDT [facility] Platelet Count 216 150 - 400 K/uL 06/05/2025 7:06 AM EDT [facility] Nucleated RBC 0 <=0 #/100 WBC 06/05/2025 7:06 AM T [facility] Blood PERIPHERAL BLOOD SPECIMEN / Unknown Venipuncture / Unknown 06/05/2025 5:53 AM EDT 06/05/2025 6:36 AM EDT us Urban Mondragon MD LAB BLOOD ORDERABLES Final Resul t [facility] [address] [place] [address], * (ABNORMAL) Hepatic Function Panel (06/05/2025 5:53 AM EDT) Total Protein 5.8(L) 6.4 - 8.3 g/dL 06/05/2025 7:34 AM EDT [facility] Albumin, Blood 2.6(L) 3.5 - 5.2 g/dL 06/05/2025 7:34 AM EDT [facility] Globulin Result 3.2 2.0 - 4.0 g/dL 06/05/2025 7:34 AM EDT [facility] Total Bilirubin 0.2 0.0 - 1.5 mg/dL 06/05/2025 7:34 AM EDT [facility] Direct Bilirubin <0.1 0.0 - 0.3 mg/dL 06/05/2025 7:34 AM EDT [facility] Alkaline Phosphatase 129 40 - 130 U/L 06/05/2025 7:34 AM EDT [facility] AST (SGOT) 19 0 - 40 U/L 06/05/2025 7:34 AM EDT [facility] ALT (SGPT) 8 0 - 40 U/L 06/05/2025 7:34 AM EDT [facility] Blood PERIPHERAL BLOOD SPECIMEN / Unknown Venipuncture / Unknown 06/05/2025 5:53 AM EDT 06/05/2025 6:37 AM EDT us Rabia Velasco MD LAB BLOOD ORDERABLES Final Resul t Performing Organization Address City/[facility]/ZIP Co de Phone Number [facility] [address] [place] [address], [place] * (ABNORMAL) POCT Glucose (06/05/2025 12:41 AM EDT) Glucose, POC 136(H) 70 - 100 mg/dL 06/05/2025 12:43 AM EDT [facility] Comment: @Serial Usprcb=[id number] @Librarian Helper SX=[id number] Blood 06/05/2025 12:4 1 AM EDT 06/05/2025 12:43 AM EDT us Urban Mondragon MD POCT ORDERABLES - DEVICE Final R esult Performing Organization Address City/[facility]/ZIP Co de Phone Number [facility] [address] [place] [address], [place] * (ABNORMAL) POCT Glucose (06/04/2025 6:40 PM EDT) Glucose, POC 110(H) 70 - 100 mg/dL 06/04/2025 6:41 PM EDT [facility] Comment: @Serial Kngafw=[id number] @Librarian Helper [id number] Blood 06/04/2025 6:40 PM EDT 06/04/2025 6:41 PM EDT us Urban Mondragon MD POCT ORDERABLES - DEVICE Final R esult Performing Organization Address [facility]/ZIP Co de Phone Number [facility] [address] [place] [address], [place] * (ABNORMAL) POCT Glucose (06/04/2025 12:07 PM EDT) Glucose, POC 119(H) 70 - 100 mg/dL 06/04/2025 12:09 PM EDT [facility] Comment: @Serial Wtcfxh=[id number] @Librarian Helper WC=[id number] Blood 06/04/2025 12:0 7 PM EDT 06/04/2025 12:09 PM EDT us Urban Mondragon MD POCT ORDERABLES - DEVICE Final R esult Performing Organization Address [facility] Co de Phone Number [facility] [address] [place] [address], [place] * Phosphorus (06/04/2025 6:25 AM EDT) Phosphorus 2.8 2.7 - 4.5 mg/dL 06/04/2025 8:06 AM EDT [facility] Blood PERIPHERAL BLOOD SPECIMEN / Unknown Venipuncture / Unknown 06/04/2025 6:25 AM EDT 06/04/2025 7:15 AM EDT us Rabia Velasco MD LAB BLOOD ORDERABLES Final Resul t Performing Organization Address City/[facility]/ZIP Co de Phone Number [facility] [address] [place] [address], [place] * Magnesium (06/04/2025 6:25 AM EDT) Magnesium, Blood 2.1 1.6 - 2.6 mg/dL 06/04/2025 8:06 AM EDT [facility] Blood PERIPHERAL BLOOD SPECIMEN / Unknown Venipuncture / Unknown 06/04/2025 6:25 AM EDT 06/04/2025 7:15 AM EDT us Rabia Velasco MD LAB BLOOD ORDERABLES Final Resul t [facility] [address] [place] [address], [place] * (ABNORMAL) Basic Metabolic Panel (06/04/2025 6:25 AM EDT) Sodium 142 135 - 147 mmol/L 06/04/2025 8:06 AM EDT [facility] Potassium 4.2 3.5 - 5.4 mmol/L 06/04/2025 8:06 AM EDT [facility] Chloride 105 96 - 108 mmol/L 06/04/2025 8:06 AM EDT [facility] Total CO2/Bicarbonat e 29 22 - 32 mmol/L 06/04/2025 8:06 AM EDT [facility] Anion Gap 8(L) 10 - 18 mmol/L 06/04/2025 8:06 AM EDT [facility] BUN 37(H) 6 - 20 mg/dL 06/04/2025 8:06 AM EDT [facility] Creatinine, Blood 0.90 0.50 - 1.20 mg/dL 06/04/2025 8:06 AM EDT [facility] Glucose, Blood 115(H) 70 - 100 mg/dL 06/04/2025 8:06 AM EDT [facility] Calcium 9.1 8.4 - 10.3 mg/dL 06/04/2025 8:06 AM EDT [facility] Blood PERIPHERAL BLOOD SPECIMEN / Unknown Venipuncture / Unknown 06/04/2025 6:25 AM EDT 06/04/2025 7:15 AM EDT us Rabia Velasco MD LAB BLOOD ORDERABLES Final Resul t [facility] [address] [place] [address], [place] * (ABNORMAL) CBC (06/04/2025 6:25 AM EDT) WBC 12.09(H) 4.00 - 10.00 K/uL 06/04/2025 8:01 AM EDT [facility] RBC 4.04(L) 4.60 - 6.10 M/uL 06/04/2025 8:01 AM EDT [facility] Hemoglobin 12.1(L) 13.7 - 17.5 g/dL 06/04/2025 8:01 AM EDT [facility] Hematocrit 38.2(L) 40.0 - 51.0 % 06/04/2025 8:01 AM EDT [facility] MCV 95 82 - 98 fL 06/04/2025 8:01 AM EDT [facility] MCH 30.0 26.0 - 32.0 pg 06/04/2025 8:01 AM EDT [facility] MCHC 31.7(L) 32.0 - 37.0 g/dL 06/04/2025 8:01 AM EDT [facility] RDW 13.2 10.5 - 15.5 % 06/04/2025 8:01 AM EDT [facility] RDW-SD 46.0 35.1 - 46.3 fL 06/04/2025 8:01 AM EDT [facility] Platelet Count 218 150 - 400 K/uL 06/04/2025 8:01 AM EDT [facility] Nucleated RBC 0 <=0 #/100 WBC 06/04/2025 8:01 AM EDT [facility] Blood PERIPHERAL BLOOD SPECIMEN / Unknown Venipuncture / Unknown 06/04/2025 6:25 AM EDT 06/04/2025 7:17 AM EDT us Urban Mondragon MD LAB BLOOD ORDERABLES Final Resul t [facility] [address] [place] [address], [place] * (ABNORMAL) Hepatic Function Panel (06/04/2025 6:25 AM EDT) Total Protein 5.7(L) 6.4 - 8.3 g/dL 06/04/2025 8:06 AM EDT [facility] Albumin, Blood 2.5(L) 3.5 - 5.2 g/dL 06/04/2025 8:06 AM EDT [facility] Globulin Result 3.2 2.0 - 4.0 g/dL 06/04/2025 8:06 AM EDT [facility] Total Bilirubin 0.2 0.0 - 1.5 mg/dL 06/04/2025 8:06 AM EDT [facility] Direct Bilirubin 0.1 0.0 - 0.3 mg/dL 06/04/2025 8:06 AM EDT [facility] Alkaline Phosphatase 133(H) 40 - 130 U/L 06/04/2025 8:06 AM EDT [facility] AST (SGOT) 19 0 - 40 U/L 06/04/2025 8:06 AM EDT [facility] ALT (SGPT) 8 0 - 40 U/L 06/04/2025 8:06 AM EDT [facility] Blood PERIPHERAL BLOOD SPECIMEN / Unknown Venipuncture / Unknown 06/04/2025 6:25 AM EDT 06/04/2025 7:15 AM EDT us Rabia Velasco MD LAB BLOOD ORDERABLES Final Resul t [facility] [address] [place] [address], * (ABNORMAL) POCT Glucose (06/04/2025 5:17 AM EDT) Glucose, POC 156(H) 70 - 100 mg/dL 06/04/2025 5:21 AM EDT [facility] Comment: @Serial Aopsxv=[id number] @Librarian Helper PY=[id number] Blood 06/04/2025 5:17 AM EDT 06/04/2025 5:21 AM EDT us Urban Mondragon MD POCT ORDERABLES - DEVICE Final R esult Performing Organization Address City/[facility]/ZIP Co de Phone Number [facility] [address] [place] [address], [place] * ECG 12 lead (06/04/2025 5:14 AM EDT) Ventricular Heart Rate 111 BPM EKG B[facility] MUSE Atrial Heart Rate 111 BPM EKG [facility] M[facility] VT Interval 132 ms EKG [facility] M[facility] QRSD Interval 94 ms EKG B[facility] MUSE QT Interval 370 ms EKG B[facility] MUSE QTC Interval 503 ms EKG B[facility] MUSE P [place] 64 degrees EKG B[facility] MUSE R [place] -33 degrees EKG B[facility] MUSE T Wave [place] 47 degrees EKG BUR MUSE 06/04/2025 5:14 [...] ORDERABLES Final Result EKG BUR MUSE [address] [place] [address] * (ABNORMAL) POCT Glucose (06/04/2025 1:04 AM EDT) Glucose, POC 141(H) 70 - 100 mg/dL 06/04/2025 1:08 AM EDT [facility] Comment: @Serial Qvubvy=[id number] @Librarian Helper MJ=[id number] Blood 06/04/2025 1:04 AM EDT 06/04/2025 1:08 AM EDT us Urban Mondragon MD POCT ORDERABLES - DEVICE Final R esult Performing Organization Address [facility] [place] [address], [place] * (ABNORMAL) POCT Glucose (06/03/2025 6:31 PM EDT) Glucose, POC 104(H) 70 - 100 mg/dL 06/03/2025 6:32 PM EDT [facility] Comment: @Serial Vtsfdw=[id number] @Librarian Helper PI=[id number] Blood 06/03/2025 6:31 PM EDT 06/03/2025 6:32 PM EDT us Urban Mondragon MD POCT ORDERABLES - DEVICE Final R esult Performing Organization Address [facility] [place] [address], [place] * (ABNORMAL) POCT Glucose (06/03/2025 11:49 AM EDT) Glucose, POC 182(H) 70 - 100 mg/dL 06/03/2025 11:55 AM EDT [facility] Comment: @Serial Xjodlp=[id number] @Librarian Helper EN=[id number] Blood 06/03/2025 11:4 9 AM EDT 06/03/2025 11:55 AM EDT us Urban Mondragon MD POCT ORDERABLES - DEVICE Final R esult Performing Organization Address [facility] [place] [address], [place] * Phosphorus (06/03/2025 6:08 AM EDT) Phosphorus 2.9 2.7 - 4.5 mg/dL 06/03/2025 7:19 AM EDT [facility] Blood PERIPHERAL BLOOD SPECIMEN / Unknown Venipuncture / Unknown 06/03/2025 6:08 AM EDT 06/03/2025 6:40 AM EDT us Rabia Velasco MD LAB BLOOD ORDERABLES Final Resul t [facility] [address] [place] [address], [place] * Magnesium (06/03/2025 6:08 AM EDT) Magnesium, Blood 2.2 1.6 - 2.6 mg/dL 06/03/2025 7:19 AM EDT [facility] Blood PERIPHERAL BLOOD SPECIMEN / Unknown Venipuncture / Unknown 06/03/2025 6:08 AM EDT 06/03/2025 6:40 AM EDT Rabia Velasco MD LAB BLOOD ORDERABLES Final Resul t [facility] [address] [place] [address], [place] * (ABNORMAL) Basic Metabolic Panel (06/03/2025 6:08 AM EDT) Sodium 145 135 - 147 mmol/L 06/03/2025 7:19 AM EDT [facility] Potassium 4.7 3.5 - 5.4 mmol/L 06/03/2025 7:19 AM EDT [facility] Chloride 108 96 - 108 mmol/L 06/03/2025 7:19 AM EDT [facility] Total CO2/Bicarbonat e 29 22 - 32 mmol/L 06/03/2025 7:19 AM EDT [facility] Anion Gap 8(L) 10 - 18 mmol/L 06/03/2025 7:19 AM EDT [facility] BUN 39(H) 6 - 20 mg/dL 06/03/2025 7:19 AM EDT [facility] Creatinine, Blood 0.90 0.50 - 1.20 mg/dL 06/03/2025 7:19 AM EDT [facility] Glucose, Blood 142(H) 70 - 100 mg/dL 06/03/2025 7:19 AM EDT [facility] Calcium 8.9 8.4 - 10.3 mg/dL 06/03/2025 7:19 AM EDT [facility] Blood PERIPHERAL BLOOD SPECIMEN / Unknown Venipuncture / Unknown 06/03/2025 6:08 AM EDT 06/03/2025 6:40 AM EDT us Rabia Velasco MD LAB BLOOD ORDERABLES Final Resul t [facility] [address] [place] [address], * (ABNORMAL) CBC (06/03/2025 6:08 AM EDT) WBC 15.35(H) 4.00 - 10.00 K/uL 06/03/2025 6:48 AM EDT [facility] RBC 4.16(L) 4.60 - 6.10 M/uL 06/03/2025 6:48 AM EDT [facility] Hemoglobin 12.5(L) 13.7 - 17.5 g/dL 06/03/2025 6:48 AM EDT [facility] Hematocrit 40.3 40.0 - 51.0 % 06/03/2025 6:48 AM EDT [facility] MCV 97 82 - 98 fL 06/03/2025 6:48 AM EDT [facility] MCH 30.0 26.0 - 32.0 pg 06/03/2025 6:48 AM EDT [facility] MCHC 31.0(L) 32.0 - 37.0 g/dL 06/03/2025 6:48 AM EDT [facility] RDW 13.3 10.5 - 15.5 % 06/03/2025 6:48 AM EDT [facility] RDW-SD 47.8(H) 35.1 - 46.3 fL 06/03/2025 6:48 AM EDT [facility] Platelet Count 243 150 - 400 K/uL 06/03/2025 6:48 AM EDT [facility] Nucleated RBC 0 <=0 #/100 WBC 06/03/2025 6:48 AM EDT [facility] Blood PERIPHERAL BLOOD SPECIMEN / Unknown Venipuncture / Unknown 06/03/2025 6:08 AM EDT 06/03/2025 6:39 AM EDT us Urban Mondragon MD LAB BLOOD ORDERABLES Final Resul t [facility] [address] [place] [address], [place] * (ABNORMAL) Hepatic Function Panel (06/03/2025 6:08 AM EDT) Total Protein 5.7(L) 6.4 - 8.3 g/dL 06/03/2025 7:19 AM EDT [facility] Albumin, Blood 2.4(L) 3.5 - 5.2 g/dL 06/03/2025 7:19 AM EDT [facility] Globulin Result 3.3 2.0 - 4.0 g/dL 06/03/2025 7:19 AM EDT [facility] Total Bilirubin 0.2 0.0 - 1.5 mg/dL 06/03/2025 7:19 AM EDT [facility] Direct Bilirubin 0.1 0.0 - 0.3 mg/dL 06/03/2025 7:19 AM EDT [facility] Alkaline Phosphatase 134(H) 40 - 130 U/L 06/03/2025 7:19 AM EDT [facility] AST (SGOT) 20 0 - 40 U/L 06/03/2025 7:19 AM EDT [facility] ALT (SGPT) 7 0 - 40 U/L 06/03/2025 7:19 AM EDT [facility] Blood PERIPHERAL BLOOD SPECIMEN / Unknown Venipuncture / Unknown 06/03/2025 6:08 AM EDT 06/03/2025 6:40 AM EDT us Rabia Velasco MD LAB BLOOD ORDERABLES Final Resul t Performing Organization Address City/[facility] de Phone Number [facility] [address] [place] [address], [place] * Clozapine Level, Blood (06/03/2025 6:08 AM EDT) Norclozapine 111 25 - 400 mcg/L 06/06/2025 5:00 PM EDT [facility] Clozapine 324 mcg/L 06/06/2025 5:00 PM EDT [facility] Comment: The therapeutic response begins to appear at 100 mcg/L. Refractory schizophrenia appears to require a therapeutic concentration of at least 350 mcg/L (trough, at steady state). Toxic range: Greater than 900 mcg/L This test was developed and its analytical performance characteristics have been determined by [employer] [place], [place]. It has not been cleared or approved by the U.S. Food and Drug Administration. This assay has been validated pursuant to the CLIA regulations and is used for clinical purposes. Blood PERIPHERAL BLOOD SPECIMEN / Unknown Venipuncture / Unknown 06/03/2025 6:08 AM EDT 06/03/2025 6:39 AM EDT Narrative [facility] - 06/06/2025 5:00 PM EDT Performing Organization Information: Site ID: [id number] Name: [facility] Address: [address] [place] [phone] Director: LEONEL RUIZ MD,PHD Urban Mondragon MD LAB BLOOD ORDERABLES Final Resul t Performing Organization Address [facility] Co de Phone Number [facility] [address] [place] [address], [place] [phone] * (ABNORMAL) POCT Glucose (06/03/2025 5:50 AM EDT) Glucose, POC 160(H) 70 - 100 mg/dL 06/03/2025 5:54 AM EDT [facility] Comment: @Serial [id number]=[id number] @Librarian Helper FX=[id number] Blood 06/03/2025 5:50 AM EDT 06/03/2025 5:54 AM EDT us Urban Mondragon MD POCT ORDERABLES - DEVICE Final R esult Performing Organization Address [facility] de Phone Number [facility] [address] [place] [address], [place] * (ABNORMAL) POCT Glucose (06/02/2025 11:44 PM EDT) Glucose, POC 141(H) 70 - 100 mg/dL 06/02/2025 11:56 PM EDT [facility] Comment: @Serial [id number]=[id number] @Librarian Helper [id number] Blood 06/02/2025 11:4 4 PM EDT 06/02/2025 11:55 PM EDT us Urban Mondragon MD POCT ORDERABLES - DEVICE Final R esult Performing Organization Address [facility] de Phone Number [facility] [address] [place] [address], [place] * (ABNORMAL) POCT Glucose (06/02/2025 5:24 PM EDT) Glucose, POC 111(H) 70 - 100 mg/dL 06/02/2025 5:30 PM EDT [facility] Comment: @Serial Emdbuv=[id number] @Librarian Helper BS=[id number] Blood 06/02/2025 5:24 PM EDT 06/02/2025 5:30 PM EDT us Urban Mondragon MD POCT ORDERABLES - DEVICE Final R esult Performing Organization Address [facility] Co de Phone Number [facility] [address] [place] [address], [place] * (ABNORMAL) POCT Glucose (06/02/2025 12:13 PM EDT) Glucose, POC 152(H) 70 - 100 mg/dL 06/02/2025 12:14 PM EDT [facility] Comment: @Serial Fylpuf=[id number] @Librarian Helper FV=[id number] Blood 06/02/2025 12:1 3 PM EDT 06/02/2025 12:14 PM EDT us Urban Mondragon MD POCT ORDERABLES - DEVICE Final R esult Performing Organization Address [facility] de Phone Number [facility] [address] [place] [address], * (ABNORMAL) POCT Glucose (06/02/2025 5:59 AM EDT) Glucose, POC 164(H) 70 - 100 mg/dL 06/02/2025 6:03 AM EDT [facility] Comment: @Serial Qseten=[id number] @Librarian Helper EX=[id number] Blood 06/02/2025 5:59 AM EDT 06/02/2025 6:03 AM EDT us Urban Mondragon MD POCT ORDERABLES - DEVICE Final R esult Performing Organization Address [facility] Co de Phone Number [facility] [address] [place] [address], * (ABNORMAL) Manual Diff and Morph (06/02/2025 5:41 AM EDT) Neutrophil 73(H) 34 - 71 % 06/02/2025 8:02 AM EDT [facility] Lymphocyte 12(L) 19 - 53 % 06/02/2025 8:02 AM EDT [facility] Monocyte 7 5 - 13 % 06/02/2025 8:02 AM EDT [facility] Eosinophil 0(L) 1 - 7 % 06/02/2025 8:02 AM EDT [facility] Basophil 0 0 - 1 % 06/02/2025 8:02 AM EDT [facility] Band 4 0 - 5 % 06/02/2025 8:02 AM EDT [facility] Metamyelocyte 2(H) <=0 % 06/02/2025 8:02 AM EDT [facility] Myelocyte 2(H) <=0 % 06/02/2025 8:02 AM EDT [facility] Absolute Neutrophil Count 15.65(H) 1.60 - 6.10 K/uL 06/02/2025 8:02 AM T [facility] Absolute Lymphocyte Count 2.44 1.20 - 3.70 K/uL 06/02/2025 8:02 AM T [facility] Absolute Monocyte Count 1.42(H) 0.20 - 0.80 K/uL 06/02/2025 8:02 AM EDT [facility] Absolute Eosinophil Count 0.00(L) 0.04 - 0.54 K/uL 06/02/2025 8:02 AM T [facility] Absolute Basophil Count 0.00(L) 0.01 - 0.08 K/uL 06/02/2025 8:02 AM T [facility] Platelet Est Normal Normal 06/02/2025 8:02 AM T [facility] ANISOCYTOSIS 1+ 06/02/2025 8:02 AM EDT [facility] Microcytosis 1+ 06/02/2025 8:02 AM EDT [facility] Poikilocytosis 1+ 06/02/2025 8:02 AM T [facility] ACANTHOCYTES 1+ 06/02/2025 8:02 AM T [facility] OVALOCYTES 1+ 06/02/2025 8:02 AM T [facility] SCHISTOCYTES 1+ 06/02/2025 8:02 AM T [facility] SPHEROCYTES 1+ 06/02/2025 8:02 AM T [facility] TEAR DROP CELLS 1+ 8:02 AM T [facility] Total Cells Counted 100 06/02/2025 8:02 AM T [facility] Blood PERIPHERAL BLOOD SPECIMEN / Unknown Venipuncture / Unknown 06/02/2025 5:41 AM EDT 06/02/2025 5:45 AM EDT us Rabia Velasco MD LAB BLOOD ORDERABLES Final Resul t [facility] [address] [place] [address], [place] * Phosphorus (06/02/2025 5:41 AM EDT) Phosphorus 3.4 2.7 - 4.5 mg/dL 06/02/2025 6:25 AM EDT [facility] Blood PERIPHERAL BLOOD SPECIMEN / Unknown Venipuncture / Unknown 06/02/2025 5:41 AM EDT 06/02/2025 5:45 AM EDT us Rabia Velasco MD LAB BLOOD ORDERABLES Final Resul t Performing Organization Address City/[facility]/ZIP Co de Phone Number [facility] [address] [place] [address], [place] * Magnesium (06/02/2025 5:41 AM EDT) Pathologist [facility] Magnesium, Blood 2.4 1.6 - 2.6 mg/dL 06/02/2025 6:25 AM EDT [facility] Blood PERIPHERAL BLOOD SPECIMEN / Unknown Venipuncture / Unknown 06/02/2025 5:41 AM EDT 06/02/2025 5:45 AM EDT us Rabia Velasco MD LAB BLOOD ORDERABLES Final Resul t Performing Organization Address City/[facility]/ZIP Co de Phone Number [facility] [address] [place] [address], [place] * (ABNORMAL) Basic Metabolic Panel (06/02/2025 5:41 AM EDT) Sodium 144 135 - 147 mmol/L 06/02/2025 6:25 AM EDT [facility] Potassium 4.2 3.5 - 5.4 mmol/L 06/02/2025 6:25 AM EDT [facility] Chloride 106 96 - 108 mmol/L 06/02/2025 6:25 AM EDT [facility] Total CO2/Bicarbonat e 30 22 - 32 mmol/L 06/02/2025 6:25 AM EDT [facility] Anion Gap 8(L) 10 - 18 mmol/L 06/02/2025 6:25 AM EDT [facility] BUN 38(H) 6 - 20 mg/dL 06/02/2025 6:25 AM EDT [facility] Creatinine, Blood 0.80 0.50 - 1.20 mg/dL 06/02/2025 6:25 AM EDT [facility] Glucose, Blood 159(H) 70 - 100 mg/dL 06/02/2025 6:25 AM EDT [facility] Calcium 9.1 8.4 - 10.3 mg/dL 06/02/2025 6:25 AM EDT [facility] Blood PERIPHERAL BLOOD SPECIMEN / Unknown Venipuncture / Unknown 06/02/2025 5:41 AM EDT 06/02/2025 5:45 AM EDT us Rabia Velasco MD LAB BLOOD ORDERABLES Final Resul t [facility] [address] [place] [address], * (ABNORMAL) CBC and Differential (06/02/2025 5:41 AM EDT) WBC 20.32(H) 4.00 - 10.00 K/uL 06/02/2025 8:02 AM EDT [facility] RBC 4.37(L) 4.60 - 6.10 M/uL 06/02/2025 8:02 AM EDT [facility] Hemoglobin 13.1(L) 13.7 - 17.5 g/dL 06/02/2025 8:02 AM EDT [facility] Hematocrit 42.1 40.0 - 51.0 % 06/02/2025 8:02 AM EDT [facility] MCV 96 82 - 98 fL 06/02/2025 8:02 AM EDT [facility] MCH 30.0 26.0 - 32.0 pg 06/02/2025 8:02 AM EDT [facility] MCHC 31.1(L) 32.0 - 37.0 g/dL 06/02/2025 8:02 AM EDT [facility] RDW 13.3 10.5 - 15.5 % 06/02/2025 8:02 AM EDT [facility] RDW-SD 47.5(H) 35.1 - 46.3 fL 06/02/2025 8:02 AM EDT [facility] Platelet Count 281 150 - 400 K/uL 06/02/2025 8:02 AM EDT [facility] Blood PERIPHERAL BLOOD SPECIMEN / Unknown Venipuncture / Unknown 06/02/2025 5:41 AM EDT 06/02/2025 5:45 AM EDT us Rabia Velasco MD LAB BLOOD ORDERABLES Final Resul t [facility] [address] [place] [address], * (ABNORMAL) Hepatic Function Panel (06/02/2025 5:41 AM EDT) Total Protein 6.3(L) 6.4 - 8.3 g/dL 06/02/2025 6:25 AM EDT [facility] Albumin, Blood 2.6(L) 3.5 - 5.2 g/dL 06/02/2025 6:25 AM EDT [facility] Globulin Result 3.7 2.0 - 4.0 g/dL 06/02/2025 6:25 AM EDT [facility] Total Bilirubin 0.3 0.0 - 1.5 mg/dL 06/02/2025 6:25 AM EDT [facility] Direct Bilirubin 0.1 0.0 - 0.3 mg/dL 06/02/2025 6:25 AM EDT [facility] Alkaline Phosphatase 142(H) 40 - 130 U/L 06/02/2025 6:25 AM EDT [facility] AST (SGOT) 21 0 - 40 U/L 06/02/2025 6:25 AM EDT [facility] ALT (SGPT) 8 0 - 40 U/L 06/02/2025 6:25 AM EDT [facility] Blood PERIPHERAL BLOOD SPECIMEN / Unknown Venipuncture / Unknown 06/02/2025 5:41 AM EDT 06/02/2025 5:45 AM EDT Rabia Velasco MD LAB BLOOD ORDERABLES Final Resul t Performing Organization Address [facility] Co de Phone Number [facility] [address] [place] [address], [place] * (ABNORMAL) POCT Glucose (06/02/2025 12:15 AM EDT) Glucose, POC 144(H) 70 - 100 mg/dL 06/02/2025 12:41 AM EDT [facility] Comment: @Serial Gipicd=[id number] @Librarian Helper QA=[id number] Blood 06/02/2025 12:1 5 AM EDT 06/02/2025 12:41 AM EDT us Urban Mondragon MD POCT ORDERABLES - DEVICE Final R esult Performing Organization Address [facility] de Phone Number [facility] [address] [place] [address], [place] * POCT Glucose (06/01/2025 6:00 PM EDT) Glucose, POC 97 70 - 100 mg/dL 06/01/2025 6:03 PM EDT [facility] Comment: @Serial Hklgbx=[id number] @Librarian Helper HS=[id number] Blood 06/01/2025 6:00 PM EDT 06/01/2025 6:03 PM EDT us Urban Mondragon MD POCT ORDERABLES - DEVICE Final R esult Performing Organization Address [facility] Co de Phone Number [facility] [address] [place] [address], [place] * (ABNORMAL) POCT Glucose (06/01/2025 11:38 AM EDT) Glucose, POC 160(H) 70 - 100 mg/dL 06/01/2025 11:39 AM EDT [facility] Comment: @Serial Awetpj=[id number] @Librarian Helper [id number] Blood 06/01/2025 11:3 8 AM EDT 06/01/2025 11:39 AM EDT Urban Mondragon MD POCT ORDERABLES - DEVICE Final R esult Performing Organization Address [facility] Hospital/[facility] de Phone Number [facility] [address] [facility] [place] [address], * (ABNORMAL) POCT Glucose (06/01/2025 6:46 AM EDT) Glucose, POC 153(H) 70 - 100 mg/dL 06/02/2025 6:18 AM EDT [facility] Comment: @Serial Rurpbt=[id number] @Librarian Helper VA=[id number] Blood 06/01/2025 6:46 AM EDT 06/02/2025 6:18 AM EDT Quan Coates MD POCT ORDERABLES - DEVICE Final R esult Performing Organization Address [facility] de Phone Number [facility] [address] [place] [address], * (ABNORMAL) Manual Diff and Morph (06/01/2025 5:36 AM EDT) Neutrophil 87(H) 34 - 71 % 06/01/2025 6:16 AM EDT [facility] Lymphocyte 7(L) 19 - 53 % 06/01/2025 6:16 AM EDT [facility] Monocyte 4(L) 5 - 13 % 06/01/2025 6:16 AM EDT [facility] Eosinophil 0(L) 1 - 7 % 06/01/2025 6:16 AM EDT [facility] Basophil 0 0 - 1 % 06/01/2025 6:16 AM EDT [facility] Metamyelocyte 1(H) <=0 % 06/01/2025 6:16 AM EDT [facility] Myelocyte 1(H) <=0 % 06/01/2025 6:16 AM EDT [facility] Absolute Neutrophil Count 17.01(H) 1.60 - 6.10 K/uL 06/01/2025 6:16 AM EDT [facility] Absolute Lymphocyte Count 1.37 1.20 - 3.70 K/uL 06/01/2025 6:16 AM EDT [facility] Absolute Monocyte Count 0.78 0.20 - 0.80 K/uL 06/01/2025 6:16 AM EDT [facility] Absolute Eosinophil Count 0.00(L) 0.04 - 0.54 K/uL 06/01/2025 6:16 AM EDT [facility] Absolute Basophil Count 0.00(L) 0.01 - 0.08 K/uL 06/01/2025 6:16 AM EDT [facility] Platelet Est Normal Normal 06/01/2025 6:16 AM EDT [facility] ANISOCYTOSIS 1+ 06/01/2025 6:16 AM EDT [facility] Poikilocytosis 1+ 06/01/2025 6:16 AM EDT [facility] OVALOCYTES 1+ 06/01/2025 6:16 AM EDT [facility] Total Cells Counted 100 06/01/2025 6:16 AM EDT [facility] Blood PERIPHERAL BLOOD SPECIMEN / Unknown Venipuncture / Unknown 06/01/2025 5:36 AM EDT 06/01/2025 5:41 AM EDT us Rabia Velasco MD LAB BLOOD ORDERABLES Final Resul t [facility] [address] [place] [address], * Phosphorus (06/01/2025 5:36 AM EDT) Phosphorus 3.2 2.7 - 4.5 mg/dL 06/01/2025 6:15 AM EDT [facility] Blood PERIPHERAL BLOOD SPECIMEN / Unknown Venipuncture / Unknown 06/01/2025 5:36 AM EDT 06/01/2025 5:42 AM EDT us Rabia Velasco MD LAB BLOOD ORDERABLES Final Resul t [facility] [address] [place] [address], [place] * Magnesium (06/01/2025 5:36 AM EDT) Pathologist [facility] Magnesium, Blood 2.3 1.6 - 2.6 mg/dL 06/01/2025 6:15 AM EDT [facility] Blood PERIPHERAL BLOOD SPECIMEN / Unknown Venipuncture / Unknown 06/01/2025 5:36 AM EDT 06/01/2025 5:42 AM EDT us Rabia Velasco MD LAB BLOOD ORDERABLES Final Resul t Performing Organization Address [facility] Co de Phone Number [facility] [address] [place] [address], [place] * (ABNORMAL) Basic Metabolic Panel (06/01/2025 5:36 AM EDT) [facility] Sodium 146 135 - 147 mmol/L 06/01/2025 6:15 AM EDT [facility] Potassium 4.1 3.5 - 5.4 mmol/L 06/01/2025 6:15 AM EDT [facility] Chloride 108 96 - 108 mmol/L 06/01/2025 6:15 AM EDT [facility] Total CO2/Bicarbonat e 30 22 - 32 mmol/L 06/01/2025 6:15 AM EDT [facility] Anion Gap 8(L) 10 - 18 mmol/L 06/01/2025 6:15 AM EDT [facility] BUN 46(H) 6 - 20 mg/dL 06/01/2025 6:15 AM EDT [facility] Creatinine, Blood 0.80 0.50 - 1.20 mg/dL 06/01/2025 6:15 AM EDT [facility] Glucose, Blood 151(H) 70 - 100 mg/dL 06/01/2025 6:15 AM EDT [facility] Calcium 9.1 8.4 - 10.3 mg/dL 06/01/2025 6:15 AM EDT [facility] Estimated GFR(CKD-EPI) 96 mL/min/BSA 06/01/2025 6:15 AM EDT [facility] Blood PERIPHERAL BLOOD SPECIMEN / Unknown Venipuncture / Unknown 06/01/2025 5:36 AM EDT 06/01/2025 5:42 AM EDT us Rabia Velasco MD LAB BLOOD ORDERABLES Final Resul t [facility] [address] [place] [address], [place] * (ABNORMAL) CBC and Differential (06/01/2025 5:36 AM EDT) WBC 19.55(H) 4.00 - 10.00 K/uL 06/01/2025 6:16 AM EDT [facility] RBC 4.28(L) 4.60 - 6.10 M/uL 06/01/2025 6:16 AM EDT [facility] Hemoglobin 13.0(L) 13.7 - 17.5 g/dL 06/01/2025 6:16 AM EDT [facility] Hematocrit 40.9 40.0 - 51.0 % 06/01/2025 6:16 AM EDT [facility] MCV 96 82 - 98 fL 06/01/2025 6:16 AM EDT [facility] MCH 30.4 26.0 - 32.0 pg 06/01/2025 6:16 AM EDT [facility] MCHC 31.8(L) 32.0 - 37.0 g/dL 06/01/2025 6:16 AM EDT [facility] RDW 13.4 10.5 - 15.5 % 06/01/2025 6:16 AM EDT [facility] RDW-SD 47.8(H) 35.1 - 46.3 fL 06/01/2025 6:16 AM EDT [facility] Platelet Count 327 150 - 400 K/uL 06/01/2025 6:16 AM EDT [facility] Blood PERIPHERAL BLOOD SPECIMEN / Unknown Venipuncture / Unknown 06/01/2025 5:36 AM EDT 06/01/2025 5:41 AM EDT us Rabia Velasco MD LAB BLOOD ORDERABLES Final Resul t Performing Organization Address City/[facility]/ZIP Co de Phone Number [facility] [address] [place] [address], [place] * (ABNORMAL) Hepatic Function Panel (06/01/2025 5:36 AM EDT) Total Protein 6.1(L) 6.4 - 8.3 g/dL 06/01/2025 6:15 AM EDT [facility] Albumin, Blood 2.6(L) 3.5 - 5.2 g/dL 06/01/2025 6:15 AM EDT [facility] Globulin Result 3.5 2.0 - 4.0 g/dL 06/01/2025 6:15 AM EDT [facility] Total Bilirubin 0.2 0.0 - 1.5 mg/dL 06/01/2025 6:15 AM EDT [facility] Direct Bilirubin 0.1 0.0 - 0.3 mg/dL 06/01/2025 6:15 AM EDT [facility] Alkaline Phosphatase 138(H) 40 - 130 U/L 06/01/2025 6:15 AM EDT [facility] AST (SGOT) 22 0 - 40 U/L 06/01/2025 6:15 AM EDT [facility] ALT (SGPT) 9 0 - 40 U/L 06/01/2025 6:15 AM EDT [facility] Blood PERIPHERAL BLOOD SPECIMEN / Unknown Venipuncture / Unknown 06/01/2025 5:36 AM EDT 06/01/2025 5:42 AM EDT us Rabia Velasco MD LAB BLOOD ORDERABLES Final Resul t Performing Organization Address City/[facility]/ZIP Co de Phone Number [facility] [address] [place] [address], [place] * (ABNORMAL) POCT Glucose (06/01/2025 12:53 AM EDT) Glucose, POC 157(H) 70 - 100 mg/dL 06/01/2025 12:55 AM EDT [facility] Comment: @Serial Hyygtc=[id number] @Librarian Helper ZR=[id number] Blood 06/01/2025 12:5 3 AM EDT 06/01/2025 12:55 AM EDT us Urban Mondragon MD POCT ORDERABLES - DEVICE Final R esult Performing Organization Address [facility] de Phone Number [facility] [address] [place] [address], [place] * (ABNORMAL) POCT Glucose (05/31/2025 5:39 PM EDT) Glucose, POC 166(H) 70 - 100 mg/dL 05/31/2025 5:46 PM EDT [facility] Comment: @Serial Dlflbu=[id number] @Librarian Helper XM=[id number] Blood 05/31/2025 5:39 PM EDT 05/31/2025 5:46 PM EDT us Urban Mondragon MD POCT ORDERABLES - DEVICE Final R esult Performing Organization Address [facility] de Phone Number [facility] [address] [place] [address], [place] * (ABNORMAL) POCT Glucose (05/31/2025 12:43 PM EDT) Glucose, POC 182(H) 70 - 100 mg/dL 05/31/2025 12:44 PM EDT [facility] Comment: @Serial [id number]=[id number] @Librarian Helper RN=[id number] Blood 05/31/2025 12:4 3 PM EDT 05/31/2025 12:44 PM EDT us Urban Mondragon MD POCT ORDERABLES - DEVICE Final R esult Performing Organization Address [facility] de Phone Number [facility] [address] [place] [address], [place] * ECG 12 lead (05/31/2025 10:34 AM EDT) Ventricular Heart Rate 78 BPM EKG [facility] Atrial Heart Rate 78 BPM EKG [facility] VT Interval 122 ms EKG [facility] QRSD Interval 106 ms EKG [facility] QT Interval 414 ms EKG [facility] QTC Interval 471 ms EKG [facility] MUSE P [place] 62 degrees EKG B[facility] MUSE R [place] -28 degrees EKG [facility] MUSE T Wave [place] 36 degrees EKG BUR MUSE 05/31/2025 10:3 [...] ECG ORDERABLES Final Result EKG B[facility] MUSE [address] [place] [id number] * (ABNORMAL) POCT Glucose (05/31/2025 6:09 AM EDT) Glucose, POC 181(H) 70 - 100 mg/dL 05/31/2025 6:18 AM EDT [facility] Comment: @Serial Qctiso=[id number] @Librarian Helper [id number] Blood 05/31/2025 6:09 AM EDT 05/31/2025 6:18 AM EDT Urban Mondragon MD POCT ORDERABLES - DEVICE Final R esult Performing Organization Address City/[facility]/ZIP Co de Phone Number [facility] [address] [facility] [place] [address], [place] * (ABNORMAL) POCT Glucose (05/30/2025 12:35 PM EDT) Glucose, POC 232(H) 70 - 100 mg/dL 05/31/2025 2:24 AM EDT [facility] Comment: @Serial Uzxdky=[id number] @Librarian Helper XR=[id number] Blood 05/30/2025 12:3 5 PM EDT 05/31/2025 2:24 AM EDT us Urban Mondragon MD POCT ORDERABLES - DEVICE Final R esult Performing Organization Address [facility] Co de Phone Number [facility] [address] [facility] [place] [address], [place] * (ABNORMAL) Manual Diff and Morph (05/30/2025 7:50 AM EDT) Neutrophil 92(H) 34 - 71 % 05/30/2025 12:36 PM EDT [facility] Comment:Toxic Granulation Lymphocyte 2(L) 19 - 53 % 05/30/2025 12:36 PM EDT [facility] Monocyte 4(L) 5 - 13 % 05/30/2025 12:36 PM EDT [facility] Eosinophil 0(L) 1 - 7 % 05/30/2025 12:36 PM EDT [facility] Basophil 0 0 - 1 % 05/30/2025 12:36 PM EDT [facility] Band 1 0 - 5 % 05/30/2025 12:36 PM EDT [facility] Promyelocyte 1(H) <=0 % 05/30/2025 12:36 PM EDT [facility] Nucleated RBC 1(H) <=0 #/100 WBC 05/30/2025 12:36 PM EDT [facility] Absolute Neutrophil Count 19.48(H) 1.60 - 6.10 K/uL 05/30/2025 12:36 PM EDT [facility] Absolute Lymphocyte Count 0.42(L) 1.20 - 3.70 K/uL 05/30/2025 12:36 PM EDT [facility] Absolute Monocyte Count 0.84(H) 0.20 - 0.80 K/uL 05/30/2025 12:36 PM EDT [facility] Absolute Eosinophil Count 0.00(L) 0.04 - 0.54 K/uL 05/30/2025 12:36 PM EDT [facility] Absolute Basophil Count 0.00(L) 0.01 - 0.08 K/uL 05/30/2025 12:36 PM EDT [facility] Platelet Est Unable to perform platelet estimate due to platelet clumping.(A ) Normal 05/30/2025 12:36 PM EDT [facility] ANISOCYTOSIS 1+ 05/30/2025 12:36 PM EDT [facility] Macrocytosis 1+ 05/30/2025 12:36 PM EDT [facility] Poikilocytosis 105/30/2025 12:36 PM EDT [facility] Echinocytes 105/30/2025 12:36 PM EDT [facility] OVALOCYTES 1+ 05/30/2025 12:36 PM EDT [facility] TEAR DROP CELLS 1 12:36 PM EDT [facility] Total Cells Counted 100 05/30/2025 12:36 PM EDT [facility] Blood PERIPHERAL BLOOD SPECIMEN / Unknown Venipuncture / Unknown 05/30/2025 7:50 AM EDT 05/30/2025 8:10 AM EDT us Rabia Velasco MD LAB BLOOD ORDERABLES Final Resul t [facility] [address] [place] [address], * Phosphorus (05/30/2025 7:50 AM EDT) Phosphorus 3.0 2.7 - 4.5 mg/dL 05/30/2025 8:58 AM EDT [facility] Blood PERIPHERAL BLOOD SPECIMEN / Unknown Venipuncture / Unknown 05/30/2025 7:50 AM EDT 05/30/2025 8:09 AM EDT us Rabia Velasco MD LAB BLOOD ORDERABLES Final Resul t Performing Organization Address City/[facility]/ZIP Co de Phone Number [facility] [address] [place] [address], * (ABNORMAL) Magnesium (05/30/2025 7:50 AM EDT) Magnesium, Blood 2.7(H) 1.6 - 2.6 mg/dL 05/30/2025 8:58 AM EDT [facility] Blood PERIPHERAL BLOOD SPECIMEN / Unknown Venipuncture / Unknown 05/30/2025 7:50 AM EDT 05/30/2025 8:09 AM EDT us Rabia Velasco MD LAB BLOOD ORDERABLES Final Resul t Performing Organization Address City/[facility] Co de Phone Number [facility] [address] [place] [address], [place] * (ABNORMAL) Basic Metabolic Panel (05/30/2025 7:50 AM EDT) Sodium 148(H) 135 - 147 mmol/L 05/30/2025 8:58 AM EDT [facility] Potassium 3.9 3.5 - 5.4 mmol/L 05/30/2025 8:58 AM EDT [facility] Chloride 110(H) 96 - 108 mmol/L 05/30/2025 8:58 AM EDT [facility] Total CO2/Bicarbonat e 28 22 - 32 mmol/L 05/30/2025 8:58 AM EDT [facility] Anion Gap 10 10 - 18 mmol/L 05/30/2025 8:58 AM EDT [facility] BUN 54(H) 6 - 20 mg/dL 05/30/2025 8:58 AM EDT [facility] Creatinine, Blood 1.00 0.50 - 1.20 mg/dL 05/30/2025 8:58 AM EDT [facility] Glucose, Blood 172(H) 70 - 100 mg/dL 05/30/2025 8:58 AM EDT [facility] Calcium 9.0 8.4 - 10.3 mg/dL 05/30/2025 8:58 AM EDT [facility] Blood PERIPHERAL BLOOD SPECIMEN / Unknown Venipuncture / Unknown 05/30/2025 7:50 AM EDT 05/30/2025 8:09 AM EDT us Rabia Velasco MD LAB BLOOD ORDERABLES Final Resul t [facility] [address] [place] [address], [place] * (ABNORMAL) CBC and Differential (05/30/2025 7:50 AM EDT) WBC 20.95(H) 4.00 - 10.00 K/uL 05/30/2025 12:36 PM EDT [facility] RBC 3.76(L) 4.60 - 6.10 M/uL 05/30/2025 12:36 PM EDT [facility] Hemoglobin 11.5(L) 13.7 - 17.5 g/dL 05/30/2025 12:36 PM EDT [facility] Hematocrit 37.0(L) 40.0 - 51.0 % 05/30/2025 12:36 PM EDT [facility] MCV 98 82 - 98 fL 05/30/2025 12:36 PM EDT [facility] MCH 30.6 26.0 - 32.0 pg 05/30/2025 12:36 PM EDT [facility] MCHC 31.1(L) 32.0 - 37.0 g/dL 05/30/2025 12:36 PM EDT [facility] RDW 13.8 10.5 - 15.5 % 05/30/2025 12:36 PM EDT [facility] RDW-SD 49.3(H) 35.1 - 46.3 fL 05/30/2025 12:36 PM EDT [facility] Platelet Count 05/30/2025 12:36 PM EDT [facility] Comment: Unable to report due to platelet clump blue top requested Previously reported as 341 K/uL on 05/30/2025 at 8:31 AM EDT Platelet Count 05/30/2025 12:36 PM EDT [facility] Comment:Unable to report due to platelet clump blue top requested Blood PERIPHERAL BLOOD SPECIMEN / Unknown Venipuncture / Unknown 05/30/2025 7:50 AM EDT 05/30/2025 8:10 AM EDT us Rabia Velasco MD LAB BLOOD ORDERABLES Final Resul t [facility] [address] [place] [address], * (ABNORMAL) Hepatic Function Panel (05/30/2025 7:50 AM EDT) Total Protein 5.9(L) 6.4 - 8.3 g/dL 05/30/2025 9:17 AM EDT [facility] Albumin, Blood 2.4(L) 3.5 - 5.2 g/dL 05/30/2025 9:17 AM EDT [facility] Globulin Result 3.5 2.0 - 4.0 g/dL 05/30/2025 9:17 AM EDT [facility] Total Bilirubin <0.2 0.0 - 1.5 mg/dL 05/30/2025 9:17 AM EDT [facility] Direct Bilirubin 0.1 0.0 - 0.3 mg/dL 05/30/2025 9:17 AM EDT [facility] Alkaline Phosphatase 132(H) 40 - 130 U/L 05/30/2025 9:17 AM EDT [facility] AST (SGOT) 19 0 - 40 U/L 05/30/2025 9:17 AM EDT [facility] ALT (SGPT) 7 0 - 40 U/L 05/30/2025 9:17 AM EDT [facility] Blood PERIPHERAL BLOOD SPECIMEN / Unknown Venipuncture / Unknown 05/30/2025 7:50 AM EDT 05/30/2025 8:09 AM EDT us Rabia Velasco MD LAB BLOOD ORDERABLES Final Resul t Performing Organization Address [facility]/ZIP Co de Phone Number [facility] [address] [place] [address], [place] * (ABNORMAL) POCT Glucose (05/30/2025 5:38 AM EDT) Glucose, POC 174(H) 70 - 100 mg/dL 05/30/2025 5:39 AM EDT [facility] Comment: @Serial [id number]=[id number] @Librarian Helper DO=[id number] Blood 05/30/2025 5:38 AM EDT 05/30/2025 5:39 AM EDT us Rabia Velasco MD POCT ORDERABLES - DEVICE Final R esult Performing Organization Address [facility] de Phone Number [facility] [address] [place] [address], [place] * (ABNORMAL) POCT Glucose (05/29/2025 11:49 PM EDT) Glucose, POC 192(H) 70 - 100 mg/dL 05/30/2025 12:06 AM EDT [facility] Comment: @Serial Hqlyvw=[id number] @Librarian Helper XD=[id number] Blood 05/29/2025 11:4 9 PM EDT 05/30/2025 12:06 AM EDT us Rabia Velasco MD POCT ORDERABLES - DEVICE Final R esult Performing Organization Address [facility] Co de Phone Number [facility] [address] [place] [address], [place] * (ABNORMAL) POCT Glucose (05/29/2025 5:32 PM EDT) Glucose, POC 159(H) 70 - 100 mg/dL 05/29/2025 5:33 PM EDT [facility] Comment: @Serial [id number]=[id number] @Librarian Helper [id number] Blood 05/29/2025 5:32 PM EDT 05/29/2025 5:33 PM EDT us Rabia Velasco MD POCT ORDERABLES - DEVICE Final R esult Performing Organization Address City/[facility] Co de Phone Number [facility] [address] [facility] [place] [address], [place] * (ABNORMAL) POCT Glucose (05/29/2025 12:23 PM EDT) Glucose, POC 152(H) 70 - 100 mg/dL 05/29/2025 1:27 PM EDT [facility] Comment: @Serial Rxlxkt=[id number] @Librarian Helper [id number] Blood 05/29/2025 12:2 3 PM EDT 05/29/2025 1:27 PM EDT Rabia Velasco MD POCT ORDERABLES - DEVICE Final R esult Performing Organization Address City/[facility] Co de Phone Number [facility] [address] [facility] [place] [address], [place] * XR Abdomen Portable (05/29/2025 11:22 [...] Heart Rate 94 BPM EKG BUR MUSE VT Interval 132 ms EKG BUR MUSE QRSD Interval 102 ms EKG BUR MUSE QT Interval 408 ms EKG BUR MUSE QTC Interval 510 ms EKG BUR MUSE P [place] 49 degrees EKG BUR MUSE R [place] -27 degrees EKG BUR MUSE T Wave [place] 31 degrees EKG BUR MUSE 05/29/2025 11:0 [...] ECG ORDERABLES Final Result Performing Organization Address City/[facility]/ZIP Co de Phone Number EKG BUR MUSE [address] [place] [id number] * RBC WBC PLT Morphology (05/29/2025 6:20 AM EDT) Platelet Est Normal Normal 05/29/2025 8:13 AM EDT [facility] ANISOCYTOSIS 1+ 05/29/2025 8:13 AM EDT [facility] Microcytosis 1+ 05/29/2025 8:13 AM EDT [facility] POLYCHROMASIA 1+ 05/29/2025 8:13 AM EDT [facility] Poikilocytosis 105/29/2025 8:13 AM EDT [facility] OVALOCYTES 1+ 05/29/2025 8:13 AM EDT [facility] SPHEROCYTES 1+ 05/29/2025 8:13 AM EDT [facility] TEAR DROP CELLS 1 8:13 AM EDT [facility] ACANTHOCYTES 1+ 05/29/2025 8:13 AM EDT [facility] Blood PERIPHERAL BLOOD SPECIMEN / Unknown Venipuncture / Unknown 05/29/2025 6:20 AM EDT 05/29/2025 6:29 AM EDT us Rabia Velasco MD LAB BLOOD ORDERABLES Final Resul t [facility] [address] [place] [address], * Phosphorus (05/29/2025 6:20 AM EDT) Phosphorus 3.5 2.7 - 4.5 mg/dL 05/29/2025 7:01 AM EDT [facility] Blood PERIPHERAL BLOOD SPECIMEN / Unknown Venipuncture / Unknown 05/29/2025 6:20 AM EDT 05/29/2025 6:27 AM EDT us Rabia Velasco MD LAB BLOOD ORDERABLES Final Resul t Performing Organization Address City/[facility]/ZIP Co de Phone Number [facility] [address] [place] [address], * (ABNORMAL) Magnesium (05/29/2025 6:20 AM EDT) Magnesium, Blood 2.9(H) 1.6 - 2.6 mg/dL 05/29/2025 7:01 AM EDT [facility] Blood PERIPHERAL BLOOD SPECIMEN / Unknown Venipuncture / Unknown 05/29/2025 6:20 AM EDT 05/29/2025 6:27 AM EDT us Rabia Velasco MD LAB BLOOD ORDERABLES Final Resul t Performing Organization Address [facility] Co de Phone Number [facility] [address] [place] [address], [place] * (ABNORMAL) Basic Metabolic Panel (05/29/2025 6:20 AM EDT) Sodium 147 135 - 147 mmol/L 05/29/2025 7:01 AM EDT [facility] Potassium 3.7 3.5 - 5.4 mmol/L 05/29/2025 7:01 AM EDT [facility] Chloride 108 96 - 108 mmol/L 05/29/2025 7:01 AM EDT [facility] Total CO2/Bicarbonat e 29 22 - 32 mmol/L 05/29/2025 7:01 AM EDT [facility] Anion Gap 10 10 - 18 mmol/L 05/29/2025 7:01 AM EDT [facility] BUN 43(H) 6 - 20 mg/dL 05/29/2025 7:01 AM EDT [facility] Creatinine, Blood 0.90 0.50 - 1.20 mg/dL 05/29/2025 7:01 AM EDT [facility] Glucose, Blood 128(H) 70 - 100 mg/dL 05/29/2025 7:01 AM EDT [facility] Calcium 9.0 8.4 - 10.3 mg/dL 05/29/2025 7:01 AM EDT [facility] Blood PERIPHERAL BLOOD SPECIMEN / Unknown Venipuncture / Unknown 05/29/2025 6:20 AM EDT 05/29/2025 6:27 AM EDT us Rabia Velasco MD LAB BLOOD ORDERABLES Final Resul t [facility] [address] [place] [address], [place] * (ABNORMAL) CBC and Differential (05/29/2025 6:20 AM EDT) WBC 15.58(H) 4.00 - 10.00 K/uL 05/29/2025 8:13 AM EDT [facility] RBC 3.78(L) 4.60 - 6.10 M/uL 05/29/2025 8:13 AM EDT [facility] Hemoglobin 11.5(L) 13.7 - 17.5 g/dL 05/29/2025 8:13 AM EDT [facility] Hematocrit 36.6(L) 40.0 - 51.0 % 05/29/2025 8:13 AM EDT [facility] MCV 97 82 - 98 fL 05/29/2025 8:13 AM EDT [facility] MCH 30.4 26.0 - 32.0 pg 05/29/2025 8:13 AM EDT [facility] MCHC 31.4(L) 32.0 - 37.0 g/dL 05/29/2025 8:13 AM EDT [facility] RDW 13.4 10.5 - 15.5 % 05/29/2025 8:13 AM EDT [facility] RDW-SD 48.3(H) 35.1 - 46.3 fL 05/29/2025 8:13 AM EDT [facility] Platelet Count 313 150 - 400 K/uL 05/29/2025 8:13 AM EDT [facility] Nucleated RBC 0 <=0 #/100 WBC 05/29/2025 8:13 AM T [facility] Neutrophil 87.7(H) 34.0 - 71.0 % 05/29/2025 8:13 AM T [facility] Lymphocyte 3.8(L) 19.0 - 53.0 % 05/29/2025 8:13 AM T [facility] Monocyte 3.8(L) 5.0 - 13.0 % 05/29/2025 8:13 AM T [facility] Eosinophil 0.1(L) 1.0 - 7.0 % 05/29/2025 8:13 AM T [facility] Basophil 0.6 0.0 - 1.0 % 05/29/2025 8:13 AM [facility] Immature Granulocyte ([place], Myelo, Promyelocyte) 4.0(H) 0.0 - 0.6 % 05/29/2025 8:13 AM T [facility] Absolute Neutrophil Count 13.67(H) 1.60 - 6.10 K/uL 05/29/2025 8:13 AM T [facility] Absolute Lymphocyte Count 0.59(L) 1.20 - 3.70 K/uL 05/29/2025 8:13 AM T [facility] Absolute Monocyte Count 0.59 0.20 - 0.80 K/uL 05/29/2025 8:13 AM T [facility] Absolute Eosinophil Count 0.01(L) 0.04 - 0.54 K/uL 05/29/2025 8:13 AM T [facility] Absolute Basophil Count 0.10(H) 0.01 - 0.08 K/uL 05/29/2025 8:13 AM [facility] Absolute Immature Granulocyte ([place], Myelo, Promyelocyte) 0.62(H) 0.00 - 0.09 K/uL 05/29/2025 8:13 AM [facility] Blood PERIPHERAL BLOOD SPECIMEN / Unknown Venipuncture / Unknown 05/29/2025 6:20 AM EDT 05/29/2025 6:29 AM EDT us Rabia Velasco MD LAB BLOOD ORDERABLES Final Resul t [facility] [address] [place] [address], [place] * (ABNORMAL) Hepatic Function Panel (05/29/2025 6:20 AM EDT) Total Protein 6.4 6.4 - 8.3 g/dL 05/29/2025 7:01 AM EDT [facility] Albumin, Blood 2.6(L) 3.5 - 5.2 g/dL 05/29/2025 7:01 AM EDT [facility] Globulin Result 3.8 2.0 - 4.0 g/dL 05/29/2025 7:01 AM EDT [facility] Total Bilirubin 0.2 0.0 - 1.5 mg/dL 05/29/2025 7:01 AM EDT [facility] Direct Bilirubin 0.1 0.0 - 0.3 mg/dL 05/29/2025 7:01 AM EDT [facility] Alkaline Phosphatase 105 40 - 130 U/L 05/29/2025 7:01 AM EDT [facility] AST (SGOT) 16 0 - 40 U/L 05/29/2025 7:01 AM EDT [facility] ALT (SGPT) 8 0 - 40 U/L 05/29/2025 7:01 AM EDT [facility] Blood PERIPHERAL BLOOD SPECIMEN / Unknown Venipuncture / Unknown 05/29/2025 6:20 AM EDT 05/29/2025 6:27 AM EDT Rabia Velasco MD LAB BLOOD ORDERABLES Final Resul t [facility] [address] [place] [address], [place] * (ABNORMAL) POCT Glucose (05/29/2025 5:38 AM EDT) Glucose, POC 122(H) 70 - 100 mg/dL 05/29/2025 10:00 AM EDT [facility] Comment: @Serial Fmysip=[id number] @Librarian Helper SC=[id number] Blood 05/29/2025 5:38 AM EDT 05/29/2025 10:00 AM EDT us Rabia Velasco MD POCT ORDERABLES - DEVICE Final R esult Performing Organization Address [facility] [place] [address], [place] * (ABNORMAL) POCT Glucose (05/28/2025 11:56 PM EDT) Glucose, POC 171(H) 70 - 100 mg/dL 05/29/2025 12:14 AM EDT [facility] Comment: @Serial Unakrp=[id number] @Librarian Helper RM=[id number] Blood 05/28/2025 11:5 6 PM EDT 05/29/2025 12:14 AM EDT us Rabia Velasco MD POCT ORDERABLES - DEVICE Final R esult Performing Organization Address [facility] [place] [address], [place] * (ABNORMAL) POCT Glucose (05/28/2025 5:50 PM EDT) Glucose, POC 172(H) 70 - 100 mg/dL 05/28/2025 5:54 PM EDT [facility] Comment: @Serial Nrhqau=[id number] @Librarian Helper [id number] Blood 05/28/2025 5:50 PM EDT 05/28/2025 5:54 PM EDT us Rabia Velasco MD POCT ORDERABLES - DEVICE Final R esult Performing Organization Address City/[facility]/ZIP Co de Phone Number [facility] [address] [place] [address], [place] * (ABNORMAL) POCT Glucose (05/28/2025 12:23 PM EDT) Glucose, POC 191(H) 70 - 100 mg/dL 05/28/2025 12:24 PM EDT [facility] Comment: @Serial Dthqxc=[id number] @Librarian Helper [id number] Blood 05/28/2025 12:2 3 PM EDT 05/28/2025 12:24 PM EDT Rabia Velasco MD POCT ORDERABLES - DEVICE Final R esult [facility] [address] [place] [address], [place] * XR Abdomen Portable (05/28/2025 11:10 [...] (ABNORMAL) C-Reactive Protein (05/28/2025 5:53 AM EDT) [facility] C-Reactive Protein (CRP) >300.0(H) 0.0 - 5.0 mg/L 05/28/2025 12:39 PM EDT [facility] Blood PERIPHERAL BLOOD SPECIMEN / Unknown Venipuncture / Unknown 05/28/2025 5:53 AM EDT 05/28/2025 6:01 AM EDT us Rabia Velasco MD LAB BLOOD ORDERABLES Final Resul t [facility] [address] [place] [address], [place] * (ABNORMAL) POCT Glucose (05/28/2025 5:53 AM EDT) [facility] Glucose, POC 179(H) 70 - 100 mg/dL 05/28/2025 5:54 AM EDT [facility] Comment: @Serial Mimpdv=[id number] @Librarian Helper EG=[id number] Blood 05/28/2025 5:53 AM EDT 05/28/2025 5:54 AM EDT us Rabia Velasco MD POCT ORDERABLES - DEVICE Final R esult [facility] [address] [place] [address], [place] * Phosphorus (05/28/2025 5:53 AM EDT) [facility] Phosphorus 3.7 2.7 - 4.5 mg/dL 05/28/2025 6:37 AM EDT [facility] Blood PERIPHERAL BLOOD SPECIMEN / Unknown Venipuncture / Unknown 05/28/2025 5:53 AM EDT 05/28/2025 6:01 AM EDT us Rabia Velasco MD LAB BLOOD ORDERABLES Final Resul t [facility] [address] [place] [address], [place] * Magnesium (05/28/2025 5:53 AM EDT) Pathologist [facility] Magnesium, Blood 2.5 1.6 - 2.6 mg/dL 05/28/2025 6:37 AM EDT [facility] Blood PERIPHERAL BLOOD SPECIMEN / Unknown Venipuncture / Unknown 05/28/2025 5:53 AM EDT 05/28/2025 6:01 AM EDT us Rabia Velasco MD LAB BLOOD ORDERABLES Final Resul t Performing Organization Address City/[facility]/ZIP Co de Phone Number [facility] [address] [place] [address], * (ABNORMAL) Basic Metabolic Panel (05/28/2025 5:53 AM EDT) [facility] Sodium 145 135 - 147 mmol/L 05/28/2025 6:37 AM EDT [facility] Potassium 4.3 3.5 - 5.4 mmol/L 05/28/2025 6:37 AM EDT [facility] Chloride 106 96 - 108 mmol/L 05/28/2025 6:37 AM EDT [facility] Total CO2/Bicarbonat e 27 22 - 32 mmol/L 05/28/2025 6:37 AM EDT [facility] Anion Gap 12 10 - 18 mmol/L 05/28/2025 6:37 AM EDT [facility] BUN 36(H) 6 - 20 mg/dL 05/28/2025 6:37 AM EDT [facility] Creatinine, Blood 1.00 0.50 - 1.20 mg/dL 05/28/2025 6:37 AM EDT [facility] Glucose, Blood 174(H) 70 - 100 mg/dL 05/28/2025 6:37 AM EDT [facility] Calcium 9.1 8.4 - 10.3 mg/dL 05/28/2025 6:37 AM EDT [facility] Blood PERIPHERAL BLOOD SPECIMEN / Unknown Venipuncture / Unknown 05/28/2025 5:53 AM EDT 05/28/2025 6:01 AM EDT us Rabia Velasco MD LAB BLOOD ORDERABLES Final Resul t [facility] [address] [place] [address], * (ABNORMAL) Hepatic Function Panel (05/28/2025 5:53 AM EDT) Total Protein 6.4 6.4 - 8.3 g/dL 05/28/2025 6:37 AM EDT [facility] Albumin, Blood 2.6(L) 3.5 - 5.2 g/dL 05/28/2025 6:37 AM EDT [facility] Globulin Result 3.8 2.0 - 4.0 g/dL 05/28/2025 6:37 AM EDT [facility] Total Bilirubin 0.2 0.0 - 1.5 mg/dL 05/28/2025 6:37 AM EDT [facility] Direct Bilirubin 0.1 0.0 - 0.3 mg/dL 05/28/2025 6:37 AM EDT [facility] Alkaline Phosphatase 103 40 - 130 U/L 05/28/2025 6:37 AM EDT [facility] AST (SGOT) 13 0 - 40 U/L 05/28/2025 6:37 AM EDT [facility] ALT (SGPT) 7 0 - 40 U/L 05/28/2025 6:37 AM EDT [facility] Blood PERIPHERAL BLOOD SPECIMEN / Unknown Venipuncture / Unknown 05/28/2025 5:53 AM EDT 05/28/2025 6:01 AM EDT us Rabia Velasco MD LAB BLOOD ORDERABLES Final Resul t [facility] [address] [place] [address], [place] * (ABNORMAL) Manual Diff and Morph (05/28/2025 5:52 AM EDT) Neutrophil 90(H) 34 - 71 % 05/28/2025 7:06 AM EDT [facility] Lymphocyte 1(L) 19 - 53 % 05/28/2025 7:06 AM EDT [facility] Monocyte 9 5 - 13 % 05/28/2025 7:06 AM EDT [facility] Eosinophil 0(L) 1 - 7 % 05/28/2025 7:06 AM EDT [facility] Basophil 0 0 - 1 % 05/28/2025 7:06 AM EDT [facility] Absolute Neutrophil Count 12.87(H) 1.60 - 6.10 K/uL 05/28/2025 7:06 AM EDT [facility] Absolute Lymphocyte Count 0.14(L) 1.20 - 3.70 K/uL 05/28/2025 7:06 AM EDT [facility] Absolute Monocyte Count 1.29(H) 0.20 - 0.80 K/uL 05/28/2025 7:06 AM EDT [facility] Absolute Eosinophil Count 0.00(L) 0.04 - 0.54 K/uL 05/28/2025 7:06 AM EDT [facility] Absolute Basophil Count 0.00(L) 0.01 - 0.08 K/uL 05/28/2025 7:06 AM EDT [facility] Platelet Est Normal Normal 05/28/2025 7:06 AM EDT [facility] ANISOCYTOSIS 1+ 05/28/2025 7:06 AM EDT [facility] Poikilocytosis 1+ 05/28/2025 7:06 AM EDT [facility] OVALOCYTES 1+ 05/28/2025 7:06 AM EDT [facility] SPHEROCYTES 1+ 05/28/2025 7:06 AM EDT [facility] TEAR DROP CELLS 1+ 7:06 AM EDT [facility] Total Cells Counted 100 05/28/2025 7:06 AM EDT [facility] Blood PERIPHERAL BLOOD SPECIMEN / Unknown Venipuncture / Unknown 05/28/2025 5:52 AM EDT 05/28/2025 6:01 AM EDT us Rabia Velasco MD LAB BLOOD ORDERABLES Final Resul t [facility] [address] [place] [address], * (ABNORMAL) CBC and Differential (05/28/2025 5:52 AM EDT) WBC 14.30(H) 4.00 - 10.00 K/uL 05/28/2025 7:07 AM EDT [facility] RBC 3.83(L) 4.60 - 6.10 M/uL 05/28/2025 7:07 AM EDT [facility] Hemoglobin 11.7(L) 13.7 - 17.5 g/dL 05/28/2025 7:07 AM EDT [facility] Hematocrit 37.0(L) 40.0 - 51.0 % 05/28/2025 7:07 AM EDT [facility] MCV 97 82 - 98 fL 05/28/2025 7:07 AM EDT [facility] MCH 30.5 26.0 - 32.0 pg 05/28/2025 7:07 AM EDT [facility] MCHC 31.6(L) 32.0 - 37.0 g/dL 05/28/2025 7:07 AM EDT [facility] RDW 13.3 10.5 - 15.5 % 05/28/2025 7:07 AM EDT [facility] RDW-SD 47.6(H) 35.1 - 46.3 fL 05/28/2025 7:07 AM EDT [facility] Platelet Count 319 150 - 400 K/uL 05/28/2025 7:07 AM EDT [facility] Blood PERIPHERAL BLOOD SPECIMEN / Unknown Venipuncture / Unknown 05/28/2025 5:52 AM EDT 05/28/2025 6:01 AM EDT Rabia Velasco MD LAB BLOOD ORDERABLES Final Resul t Performing Organization Address City/[facility]/ZIP Co de Phone Number [facility] [address] [place] [address], * (ABNORMAL) POCT Glucose (05/28/2025 12:00 AM EDT) Glucose, POC 145(H) 70 - 100 mg/dL 05/28/2025 12:06 AM EDT [facility] Comment: @Serial [id number] @Librarian Helper VN=[id number] Blood 05/28/2025 12:0 0 AM EDT 05/28/2025 12:06 AM EDT Rabia Velasco MD POCT ORDERABLES - DEVICE Final R esult Performing Organization Address City/[facility]/ZIP Co de Phone Number [facility] [address] [place] [address], * ECG 12 lead (2025 9:30 PM EDT) Ventricular Heart Rate 129 BPM EKG BUR MUSE Atrial Heart Rate 129 BPM EKG B[facility] MUSE VT Interval 138 ms EKG B[facility] MUSE QRSD Interval 90 ms EKG B[facility] MUSE QT Interval 320 ms EKG B[facility] MUSE QTC Interval 468 ms EKG B[facility] MUSE P [place] 56 degrees EKG BUR MUSE R [place] -44 degrees EKG BUR MUSE T Wave [place] 36 degrees EKG BUR MUSE 2025 9:25 [...] MD ECG ORDERABLES Final Result EKG KATH [address] [address] * CT Angiogram Chest PE : Arteriogram [...] PROCEDURE(S) AND AGREE WITHTHE FINDINGS DOCUMENTED. James Champoin MD, electronically signed on May 28 2025 [...] - 2.0 mmol/L 2025 8:34 PM EDT [facility] Blood PERIPHERAL BLOOD SPECIMEN / Unknown Venipuncture / Unknown 2025 8:28 PM EDT 2025 8:31 PM EDT us Rabia Velasco MD LAB BLOOD ORDERABLES Final Resul t [facility] [address] [place] [address], [place] * (ABNORMAL) Blood Gas, Venous (2025 8:28 PM EDT) pH, Venous 7.47(H) 7.35 - 7.45 2025 8:35 PM EDT [facility] pCO2, Venous 41 35 - 45 mmHg 2025 8:35 PM EDT [facility] pO2, Venous 82 80 - 105 mmHg 2025 8:35 PM EDT [facility] HCO3, Venous 30 21 - 30 mmol/L 2025 8:35 PM EDT [facility] Carboxyhemoglo bin, VBG 1.6(H) 0.5 - 1.5 % 2025 8:35 PM EDT [facility] Methemoglobin, VBG 1.0(H) 0.2 - 0.6 % 2025 8:35 PM EDT [facility] Blood Venipuncture / Unknown 2025 8:28 PM EDT 2025 8:31 PM EDT us Rabia Velasco MD LAB BLOOD ORDERABLES Final Resul t [facility] [address] [place] [address], [place] * Phosphorus (2025 8:23 PM EDT) Pathologist [facility] Phosphorus 3.1 2.7 - 4.5 mg/dL 2025 9:04 PM EDT [facility] Blood PERIPHERAL BLOOD SPECIMEN / Unknown Venipuncture / Unknown 2025 8:23 PM EDT 2025 8:27 PM EDT us Rabia Velasco MD LAB BLOOD ORDERABLES Final Resul t [facility] [address] [place] [address], [place] * Magnesium (2025 8:23 PM EDT) Magnesium, Blood 2.3 1.6 - 2.6 mg/dL 2025 9:04 PM EDT [facility] Blood PERIPHERAL BLOOD SPECIMEN / Unknown Venipuncture / Unknown 2025 8:23 PM EDT 2025 8:27 PM EDT us Rabia Velasco MD LAB BLOOD ORDERABLES Final Resul t [facility] [address] [place] [address], [place] * (ABNORMAL) Comprehensive Metabolic Panel (2025 8:23 PM EDT) [facility] Sodium 145 135 - 147 mmol/L 2025 9:04 PM EDT [facility] Potassium 4.0 3.5 - 5.4 mmol/L 2025 9:04 PM EDT [facility] Chloride 106 96 - 108 mmol/L 2025 9:04 PM EDT [facility] Total CO2/Bicarbonate 27 22 - 32 mmol/L 2025 9:04 PM EDT [facility] Anion Gap 12 10 - 18 mmol/L 2025 9:04 PM EDT [facility] BUN 36(H) 6 - 20 mg/dL 2025 9:04 PM EDT [facility] Creatinine, Blood 0.90 0.50 - 1.20 mg/dL 2025 9:04 PM EDT [facility] Glucose, Blood 168(H) 70 - 100 mg/dL 2025 9:04 PM EDT [facility] Calcium 9.1 8.4 - 10.3 mg/dL 2025 9:04 PM EDT [facility] Total Protein 6.5 6.4 - 8.3 g/dL 2025 9:04 PM EDT [facility] Albumin, Blood 2.9(L) 3.5 - 5.2 g/dL 2025 9:04 PM EDT [facility] Globulin Result 3.6 2.0 - 4.0 g/dL 2025 9:04 PM EDT [facility] AST (SGOT) 15 0 - 40 U/L 2025 9:04 PM EDT [facility] ALT (SGPT) 8 0 - 40 U/L 2025 9:04 PM EDT [facility] Alkaline Phosphatase 125 40 - 130 U/L 2025 9:04 PM EDT [facility] Total Bilirubin 0.2 0.0 - 1.5 mg/dL 2025 9:04 PM EDT [facility] Blood PERIPHERAL BLOOD SPECIMEN / Unknown Venipuncture / Unknown 2025 8:23 PM EDT 2025 8:27 PM EDT us Rabia Velasco MD LAB BLOOD ORDERABLES Final Resul t [facility] [address] [place] [address], * (ABNORMAL) CBC (2025 8:23 PM EDT) WBC 13.35(H) 4.00 - 10.00 K/uL 2025 8:40 PM EDT [facility] RBC 4.25(L) 4.60 - 6.10 M/uL 2025 8:40 PM EDT [facility] Hemoglobin 12.8(L) 13.7 - 17.5 g/dL 2025 8:40 PM EDT [facility] Hematocrit 40.6 40.0 - 51.0 % 2025 8:40 PM EDT [facility] MCV 96 82 - 98 fL 2025 8:40 PM EDT [facility] MCH 30.1 26.0 - 32.0 pg 2025 8:40 PM EDT [facility] MCHC 31.5(L) 32.0 - 37.0 g/dL 2025 8:40 PM EDT [facility] RDW 13.2 10.5 - 15.5 % 2025 8:40 PM EDT [facility] RDW-SD 46.8(H) 35.1 - 46.3 fL 2025 8:40 PM EDT [facility] Platelet Count 328 150 - 400 K/uL 2025 8:40 PM EDT [facility] Nucleated RBC 0 <=0 #/100 WBC 2025 8:40 PM EDT [facility] Blood PERIPHERAL BLOOD SPECIMEN / Unknown Venipuncture / Unknown 2025 8:23 PM EDT 2025 8:27 PM EDT us Rabia Velasco MD LAB BLOOD ORDERABLES Final Resul t [facility] [address] [place] [address], [place] * Culture, Respiratory (Incl Gram) (2025 5:55 PM EDT) Respiratory Culture Heavy growth commensal respiratory nuvia STEPHEN 05/31/2025 2:23 PM EDT [facility] Smear,Gram Stain >25 PMNs and <10 epithelial cells/100X field 05/31/2025 2:23 PM EDT [facility] Smear,Gram Stain 4+ Multiple Organisms Present Consistent with Oropharyngeal Nuvia 05/31/2025 2:23 PM EDT [facility] Respiratory SPUTUM SPECIMEN OBTAINED BY SPUTUM INDUCTION / Unknown Collection / Unknown 2025 5:55 PM EDT 2025 6:16 PM EDT us Rabia Velasco MD MICROBIOLOGY - GENERAL ORDERABLE S Final Result [facility] [address] [place] [address], [place] * (ABNORMAL) POCT Glucose (2025 5:49 PM EDT) Glucose, POC 168(H) 70 - 100 mg/dL 2025 5:56 PM EDT [facility] Comment: @Serial [id number] @Librarian Helper CS=[id number] Blood 2025 5:49 PM EDT 2025 5:56 PM EDT us Rabia Velasco MD POCT ORDERABLES - DEVICE Final R esult Performing Organization Address [facility] [place] [address], * Nasal MRSA/SA By PCR (2025 3:35 PM EDT) MRSA PCR Negative Negative 05/28/2025 10:52 AM EDT [facility] S. aureus PCR Negative Negative 05/28/2025 10:52 AM EDT [facility] Swab BOTH ANTERIOR NARES / Unknown 2025 3:35 PM EDT 2025 4:00 PM EDT Narrative [facility] - 05/28/2025 10:52 AM EDT Test performed by GeneXpert real-time PCR. us Rabia Velasco MD MICROBIOLOGY - GENERAL ORDERABLE S Final Result Performing Organization Address [facility] [place] [address], [place] * (ABNORMAL) POCT Glucose (2025 2:37 PM EDT) Glucose, POC 196(H) 70 - 100 mg/dL 2025 2:38 PM EDT [facility] Comment: @Serial Xvytfa=[id number] @Librarian Helper QV=[id number] Blood 2025 2:37 PM EDT 2025 2:38 PM EDT us Rabia Velasco MD POCT ORDERABLES - DEVICE Final R esult Performing Organization Address [facility] [place] [address], [place] * XR Chest 1 VW Portable [...] - 71 % 2025 9:23 AM EDT [facility] Lymphocyte 6(L) 19 - 53 % 2025 9:23 AM EDT [facility] Monocyte 8 5 - 13 % 2025 9:23 AM EDT [facility] Eosinophil 0(L) 1 - 7 % 2025 9:23 AM EDT [facility] Basophil 0 0 - 1 % 2025 9:23 AM EDT [facility] Band 2 0 - 5 % 2025 9:23 AM EDT [facility] Absolute Neutrophil Count 11.20(H) 1.60 - 6.10 K/uL 2025 9:23 AM EDT [facility] Absolute Lymphocyte Count 0.78(L) 1.20 - 3.70 K/uL 2025 9:23 AM EDT [facility] Absolute Monocyte Count 1.04(H) 0.20 - 0.80 K/uL 2025 9:23 AM EDT [facility] Absolute Eosinophil Count 0.00(L) 0.04 - 0.54 K/uL 2025 9:23 AM EDT [facility] Absolute Basophil Count 0.00(L) 0.01 - 0.08 K/uL 2025 9:23 AM EDT [facility] Platelet Est Normal Normal 2025 9:23 AM EDT [facility] Total Cells Counted 100 2025 9:23 AM EDT [facility] Blood PERIPHERAL BLOOD SPECIMEN / Unknown Venipuncture / Unknown 2025 6:34 AM EDT 2025 7:45 AM EDT us Rabia Velasco MD LAB BLOOD ORDERABLES Final Resul t [facility] [address] [place] [address], [place] * Phosphorus (2025 6:34 AM EDT) Phosphorus 2.7 2.7 - 4.5 mg/dL 2025 8:23 AM EDT [facility] Blood PERIPHERAL BLOOD SPECIMEN / Unknown Venipuncture / Unknown 2025 6:34 AM EDT 2025 7:44 AM EDT us Rabia Velasco MD LAB BLOOD ORDERABLES Final Resul t [facility] [address] [place] [address], * Magnesium (2025 6:34 AM EDT) Magnesium, Blood 2.4 1.6 - 2.6 mg/dL 2025 8:23 AM EDT [facility] Blood PERIPHERAL BLOOD SPECIMEN / Unknown Venipuncture / Unknown 2025 6:34 AM EDT 2025 7:44 AM EDT us Rabia Velasco MD LAB BLOOD ORDERABLES Final Resul t Performing Organization Address City/[facility]/ZIP Co de Phone Number [facility] [address] [place] [address], * (ABNORMAL) Basic Metabolic Panel (2025 6:34 AM EDT) Sodium 144 135 - 147 mmol/L 2025 8:23 AM EDT [facility] Potassium 3.7 3.5 - 5.4 mmol/L 2025 8:23 AM EDT [facility] Chloride 103 96 - 108 mmol/L 2025 8:23 AM EDT [facility] Total CO2/Bicarbonat e 28 22 - 32 mmol/L 2025 8:23 AM EDT [facility] Anion Gap 13 10 - 18 mmol/L 2025 8:23 AM EDT [facility] BUN 39(H) 6 - 20 mg/dL 2025 8:23 AM EDT [facility] Creatinine, Blood 1.00 0.50 - 1.20 mg/dL 2025 8:23 AM EDT [facility] Glucose, Blood 238(H) 70 - 100 mg/dL 2025 8:23 AM EDT [facility] Calcium 9.4 8.4 - 10.3 mg/dL 2025 8:23 AM EDT [facility] Blood PERIPHERAL BLOOD SPECIMEN / Unknown Venipuncture / Unknown 2025 6:34 AM EDT 2025 7:44 AM EDT us Rabia Velasco MD LAB BLOOD ORDERABLES Final Resul t [facility] [address] [place] [address], * (ABNORMAL) CBC and Differential (2025 6:34 AM EDT) WBC 13.02(H) 4.00 - 10.00 K/uL 2025 9:23 AM EDT [facility] RBC 4.13(L) 4.60 - 6.10 M/uL 2025 9:23 AM EDT [facility] Hemoglobin 12.7(L) 13.7 - 17.5 g/dL 2025 9:23 AM EDT [facility] Hematocrit 39.8(L) 40.0 - 51.0 % 2025 9:23 AM EDT [facility] MCV 96 82 - 98 fL 2025 9:23 AM EDT [facility] MCH 30.8 26.0 - 32.0 pg 2025 9:23 AM EDT [facility] MCHC 31.9(L) 32.0 - 37.0 g/dL 2025 9:23 AM EDT [facility] RDW 13.1 10.5 - 15.5 % 2025 9:23 AM EDT [facility] RDW-SD 46.7(H) 35.1 - 46.3 fL 2025 9:23 AM EDT [facility] Platelet Count 343 150 - 400 K/uL 2025 9:23 AM EDT [facility] Blood PERIPHERAL BLOOD SPECIMEN / Unknown Venipuncture / Unknown 2025 6:34 AM EDT 2025 7:45 AM EDT Rabia Velasco MD LAB BLOOD ORDERABLES Final Resul t [facility] [address] [place] [address], [place] * (ABNORMAL) Hepatic Function Panel (2025 6:34 AM EDT) Total Protein 6.9 6.4 - 8.3 g/dL 2025 8:39 AM EDT [facility] Albumin, Blood 3.1(L) 3.5 - 5.2 g/dL 2025 8:39 AM EDT [facility] Globulin Result 3.8 2.0 - 4.0 g/dL 2025 8:39 AM EDT [facility] Total Bilirubin 0.2 0.0 - 1.5 mg/dL 2025 8:39 AM EDT [facility] Direct Bilirubin <0.1 0.0 - 0.3 mg/dL 2025 8:39 AM EDT [facility] Alkaline Phosphatase 141(H) 40 - 130 U/L 2025 8:39 AM EDT [facility] AST (SGOT) 16 0 - 40 U/L 2025 8:39 AM EDT [facility] ALT (SGPT) 10 0 - 40 U/L 2025 8:39 AM EDT [facility] Blood PERIPHERAL BLOOD SPECIMEN / Unknown Venipuncture / Unknown 2025 6:34 AM EDT 2025 7:44 AM EDT Rabia Velasco MD LAB BLOOD ORDERABLES Final Resul t [facility] [address] [place] [address], [place] * Phosphorus (05/26/2025 7:16 AM EDT) Phosphorus 3.8 2.7 - 4.5 mg/dL 05/26/2025 8:09 AM EDT [facility] Blood PERIPHERAL BLOOD SPECIMEN / Unknown Venipuncture / Unknown 05/26/2025 7:16 AM EDT 05/26/2025 7:31 AM EDT Rabia Velasco MD LAB BLOOD ORDERABLES Final Resul t Performing Organization Address City/[facility]/ZIP Co de Phone Number [facility] [address] [place] [address], [place] * Magnesium (05/26/2025 7:16 AM EDT) Magnesium, Blood 2.3 1.6 - 2.6 mg/dL 05/26/2025 8:09 AM EDT [facility] Blood PERIPHERAL BLOOD SPECIMEN / Unknown Venipuncture / Unknown 05/26/2025 7:16 AM EDT 05/26/2025 7:31 AM EDT us Rabia Velasco MD LAB BLOOD ORDERABLES Final Resul t Performing Organization Address City/[facility]/ZIP Co de Phone Number [facility] [address] [place] [address], [place] * (ABNORMAL) Basic Metabolic Panel (05/26/2025 7:16 AM EDT) Sodium 145 135 - 147 mmol/L 05/26/2025 8:09 AM EDT [facility] Potassium 3.9 3.5 - 5.4 mmol/L 05/26/2025 8:09 AM EDT [facility] Chloride 106 96 - 108 mmol/L 05/26/2025 8:09 AM EDT [facility] Total CO2/Bicarbonat e 28 22 - 32 mmol/L 05/26/2025 8:09 AM EDT [facility] Anion Gap 11 10 - 18 mmol/L 05/26/2025 8:09 AM EDT [facility] BUN 34(H) 6 - 20 mg/dL 05/26/2025 8:09 AM EDT [facility] Creatinine, Blood 0.90 0.50 - 1.20 mg/dL 05/26/2025 8:09 AM EDT [facility] Glucose, Blood 104(H) 70 - 100 mg/dL 05/26/2025 8:09 AM EDT [facility] Calcium 8.9 8.4 - 10.3 mg/dL 05/26/2025 8:09 AM EDT [facility] Blood PERIPHERAL BLOOD SPECIMEN / Unknown Venipuncture / Unknown 05/26/2025 7:16 AM EDT 05/26/2025 7:31 AM EDT us Rabia Velasco MD LAB BLOOD ORDERABLES Final Resul t [facility] [address] [place] [address], * (ABNORMAL) CBC and Differential (05/26/2025 7:16 AM EDT) WBC 10.78(H) 4.00 - 10.00 K/uL 05/26/2025 9:11 AM EDT [facility] RBC 3.77(L) 4.60 - 6.10 M/uL 05/26/2025 9:11 AM EDT [facility] Hemoglobin 11.6(L) 13.7 - 17.5 g/dL 05/26/2025 9:11 AM EDT [facility] Hematocrit 35.9(L) 40.0 - 51.0 % 05/26/2025 9:11 AM EDT [facility] MCV 95 82 - 98 fL 05/26/2025 9:11 AM EDT [facility] MCH 30.8 26.0 - 32.0 pg 05/26/2025 9:11 AM EDT [facility] MCHC 32.3 32.0 - 37.0 g/dL 05/26/2025 9:11 AM [facility] RDW 13.1 10.5 - 15.5 % 05/26/2025 9:11 AM [facility] RDW-SD 45.7 35.1 - 46.3 fL 05/26/2025 9:11 AM [facility] Platelet Count 288 150 - 400 K/uL 05/26/2025 9:11 AM [facility] Nucleated RBC 0 <=0 #/100 WBC 05/26/2025 9:11 AM [facility] Neutrophil 85.4(H) 34.0 - 71.0 % 05/26/2025 9:11 AM [facility] Lymphocyte 6.7(L) 19.0 - 53.0 % 05/26/2025 9:11 AM [facility] Monocyte 6.9 5.0 - 13.0 % 05/26/2025 9:11 AM [facility] Eosinophil 0.0(L) 1.0 - 7.0 % 05/26/2025 9:11 AM [facility] Basophil 0.2 0.0 - 1.0 % 05/26/2025 9:11 AM [facility] Immature Granulocyte ([place], Myelo, Promyelocyte) 0.8(H) 0.0 - 0.6 % 05/26/2025 9:11 AM [facility] Absolute Neutrophil Count 9.21(H) 1.60 - 6.10 K/uL 05/26/2025 9:11 AM [facility] Absolute Lymphocyte Count 0.72(L) 1.20 - 3.70 K/uL 05/26/2025 9:11 AM [facility] Absolute Monocyte Count 0.74 0.20 - 0.80 K/uL 05/26/2025 9:11 AM [facility] Absolute Eosinophil Count 0.00(L) 0.04 - 0.54 K/uL 05/26/2025 9:11 AM [facility] Absolute Basophil Count 0.02 0.01 - 0.08 K/uL 05/26/2025 9:11 AM [facility] Absolute Immature Granulocyte ([place], Myelo, Promyelocyte) 0.09 0.00 - 0.09 K/uL 05/26/2025 9:11 AM EDT [facility] Blood PERIPHERAL BLOOD SPECIMEN / Unknown Venipuncture / Unknown 05/26/2025 7:16 AM EDT 05/26/2025 7:31 AM EDT Rabia Velasco MD LAB BLOOD ORDERABLES Final Resul t [facility] [address] [place] [address], [place] * (ABNORMAL) Hepatic Function Panel (05/26/2025 7:16 AM EDT) Total Protein 6.3(L) 6.4 - 8.3 g/dL 05/26/2025 8:09 AM EDT [facility] Albumin, Blood 2.9(L) 3.5 - 5.2 g/dL 05/26/2025 8:09 AM EDT [facility] Globulin Result 3.4 2.0 - 4.0 g/dL 05/26/2025 8:09 AM EDT [facility] Total Bilirubin 0.3 0.0 - 1.5 mg/dL 05/26/2025 8:09 AM EDT [facility] Direct Bilirubin 0.1 0.0 - 0.3 mg/dL 05/26/2025 8:09 AM EDT [facility] Alkaline Phosphatase 124 40 - 130 U/L 05/26/2025 8:09 AM EDT [facility] AST (SGOT) 18 0 - 40 U/L 05/26/2025 8:09 AM EDT [facility] ALT (SGPT) 9 0 - 40 U/L 05/26/2025 8:09 AM EDT [facility] Blood PERIPHERAL BLOOD SPECIMEN / Unknown Venipuncture / Unknown 05/26/2025 7:16 AM EDT 05/26/2025 7:31 AM EDT Rabia Velasco MD LAB BLOOD ORDERABLES Final Resul t [facility] [address] [place] [address], [place] * RBC WBC PLT Morphology (05/25/2025 12:28 PM EDT) [facility] Platelet Est Normal Normal 05/25/2025 1:51 PM EDT [facility] ANISOCYTOSIS 1+ 05/25/2025 1:51 PM EDT [facility] Microcytosis 1+ 05/25/2025 1:51 PM EDT [facility] Poikilocytosis 1+ 05/25/2025 1:51 PM EDT [facility] TEAR DROP CELLS 1+ 1:51 PM EDT [facility] Blood PERIPHERAL BLOOD SPECIMEN / Unknown Venipuncture / Unknown 05/25/2025 12:28 PM EDT 05/25/2025 12:32 PM EDT Rabia Velasco MD LAB BLOOD ORDERABLES Final Resul t [facility] [address] [place] [address], [place] * (ABNORMAL) CBC and Differential (05/25/2025 12:28 PM EDT) Pathologist [facility] WBC 13.75(H) 4.00 - 10.00 K/uL 05/25/2025 1:51 PM EDT [facility] RBC 3.87(L) 4.60 - 6.10 M/uL 05/25/2025 1:51 PM EDT [facility] Hemoglobin 11.9(L) 13.7 - 17.5 g/dL 05/25/2025 1:51 PM EDT [facility] Hematocrit 36.6(L) 40.0 - 51.0 % 05/25/2025 1:51 PM EDT [facility] MCV 95 82 - 98 fL 05/25/2025 1:51 PM EDT [facility] MCH 30.7 26.0 - 32.0 pg 05/25/2025 1:51 PM EDT [facility] MCHC 32.5 32.0 - 37.0 g/dL 05/25/2025 1:51 PM T [facility] RDW 12.9 10.5 - 15.5 % 05/25/2025 1:51 PM [facility] RDW-SD 44.5 35.1 - 46.3 fL 05/25/2025 1:51 PM [facility] Platelet Count 272 150 - 400 K/uL 05/25/2025 1:51 PM T [facility] Nucleated RBC 0 <=0 #/100 WBC 05/25/2025 1:51 PM T [facility] Neutrophil 85.0(H) 34.0 - 71.0 % 05/25/2025 1:51 PM [facility] Lymphocyte 6.6(L) 19.0 - 53.0 % 05/25/2025 1:51 PM [facility] Monocyte 7.3 5.0 - 13.0 % 05/25/2025 1:51 PM [facility] Eosinophil 0.1(L) 1.0 - 7.0 % 05/25/2025 1:51 PM [facility] Basophil 0.3 0.0 - 1.0 % 05/25/2025 1:51 PM [facility] Immature Granulocyte ([place], Myelo, Promyelocyte) 0.7(H) 0.0 - 0.6 % 05/25/2025 1:51 PM [facility] Absolute Neutrophil Count 11.69(H) 1.60 - 6.10 K/uL 05/25/2025 1:51 PM [facility] Absolute Lymphocyte Count 0.91(L) 1.20 - 3.70 K/uL 05/25/2025 1:51 PM [facility] Absolute Monocyte Count 1.00(H) 0.20 - 0.80 K/uL 05/25/2025 1:51 PM [facility] Absolute Eosinophil Count 0.02(L) 0.04 - 0.54 K/uL 05/25/2025 1:51 PM T [facility] Absolute Basophil Count 0.04 0.01 - 0.08 K/uL 05/25/2025 1:51 PM [facility] Absolute Immature Granulocyte ([place], Myelo, Promyelocyte) 0.09 0.00 - 0.09 K/uL 05/25/2025 1:51 PM EDT [facility] Blood PERIPHERAL BLOOD SPECIMEN / Unknown Venipuncture / Unknown 05/25/2025 12:28 PM EDT 05/25/2025 12:32 PM EDT Rabia Velasco MD LAB BLOOD ORDERABLES Final Resul t Performing Organization Address City/[facility]/ZIP Co de Phone Number [facility] [address] [place] [address], [place] * ECG 12 lead (05/25/2025 12:17 PM EDT) Ventricular Heart Rate 111 BPM EKG B[facility] MUSE Atrial Heart Rate 111 BPM EKG [facility] VT Interval 128 ms EKG [facility] QRSD Interval 100 ms EKG [facility] M[facility] QT Interval 374 ms EKG [facility] QTC Interval 508 ms EKG [facility] MUSE P [place] 50 degrees EKG [facility] MUSE R [place] -25 degrees EKG [facility] MUSE T Wave [place] 53 degrees EKG BUR MUSE 05/25/2025 12:1 [...] ECG ORDERABLES Final Result Performing Organization Address City/[facility]/ZIP Co de Phone Number EKG BUR MUSE [address] [place] [id number] * (ABNORMAL) Renal Function Panel (05/25/2025 7:32 AM EDT) Sodium 144 135 - 147 mmol/L 05/25/2025 8:37 AM EDT [facility] Potassium 3.9 3.5 - 5.4 mmol/L 05/25/2025 8:37 AM EDT [facility] Chloride 104 96 - 108 mmol/L 05/25/2025 8:37 AM EDT [facility] Total CO2/Bicarbonate 29 22 - 32 mmol/L 05/25/2025 8:37 AM EDT [facility] Anion Gap 11 10 - 18 mmol/L 05/25/2025 8:37 AM EDT [facility] BUN 31(H) 6 - 20 mg/dL 05/25/2025 8:37 AM EDT [facility] Creatinine, Blood 1.10 0.50 - 1.20 mg/dL 05/25/2025 8:37 AM EDT [facility] Glucose, Blood 200(H) 70 - 100 mg/dL 05/25/2025 8:37 AM EDT [facility] Calcium 8.7 8.4 - 10.3 mg/dL 05/25/2025 8:37 AM EDT [facility] Albumin, Blood 3.0(L) 3.5 - 5.2 g/dL 05/25/2025 8:37 AM EDT [facility] Phosphorus 2.8 2.7 - 4.5 mg/dL 05/25/2025 8:37 AM EDT [facility] Magnesium, Blood 2.5 1.6 - 2.6 mg/dL 05/25/2025 8:37 AM EDT [facility] Blood PERIPHERAL BLOOD SPECIMEN / Unknown Venipuncture / Unknown 05/25/2025 7:32 AM EDT 05/25/2025 7:55 AM EDT us Imelda Xie MD LAB BLOOD ORDERABLES Final Res ult [facility] [address] [place] [address], [place] * (ABNORMAL) Valproic Acid Level (05/25/2025 7:32 AM EDT) Valproic Acid Level, Blood 33(L) 50 - 100 ug/mL 05/25/2025 8:37 AM EDT [facility] Blood PERIPHERAL BLOOD SPECIMEN / Unknown Venipuncture / Unknown 05/25/2025 7:32 AM EDT 05/25/2025 7:55 AM EDT us Rabia Velasco MD LAB BLOOD ORDERABLES Final Resul t [facility] [address] [place] [address], [place] * Urine Micro Hold (05/25/2025 5:11 AM EDT) Micro Urine Reflex Hold Received 05/25/2025 8:01 AM EDT [facility] AP Urine MID-STREAM URINE SPECIMEN / Unknown Collection / Unknown 05/25/2025 5:11 AM EDT 05/25/2025 5:15 AM EDT us Rabia Velasco MD URINE ORDERABLES Final Result [facility] AP [address] [place] [address], [place] * (ABNORMAL) Urinalysis with Reflex to Urine Culture (05/25/2025 5:11 AM EDT) Color, Urine Yellow Yellow, Colorless, Straw 05/25/2025 5:41 AM EDT [facility] Clarity, Urine Clear Clear 05/25/2025 5:41 AM EDT [facility] pH, Urine 7.5 5.0 - 8.0 05/25/2025 5:41 AM EDT [facility] Protein, Urine 50 mg/dL(A) Negative 05/25/2025 5:41 AM EDT [facility] Glucose, Urine Negative Negative 05/25/2025 5:41 AM EDT [facility] Ketone, Urine Negative Negative 05/25/2025 5:41 AM EDT [facility] Bilirubin, Urine Negative Negative 05/25/2025 5:41 AM EDT [facility] Urobilinogen, Urine Normal 0.2-1.0 mg/dL 05/25/2025 5:41 AM EDT [facility] Blood, Urine Negative Negative 05/25/2025 5:41 AM EDT [facility] Leukocyte Esterase, Urine Negative Negative 05/25/2025 5:41 AM EDT [facility] Nitrite, Urine Negative Negative 05/25/2025 5:41 AM EDT [facility] Specific [place], Urine 1.029 1.001 - 1.050 05/25/2025 5:41 AM EDT [facility] White Blood Cells, Urine <1 0 - 5 /hpf 05/25/2025 5:41 AM EDT [facility] Red Blood Cells, Urine 2 0 - 2 /hpf 05/25/2025 5:41 AM EDT [facility] Urine MID-STREAM URINE SPECIMEN / Unknown Collection / Unknown 05/25/2025 5:11 AM EDT 05/25/2025 5:15 AM EDT us Rabia Velasco MD URINE ORDERABLES Final Result [facility] [address] [place] [address], [place] * Culture, Blood (05/24/2025 6:58 PM EDT) Culture No growth after 5 days STEPHEN 05/29/2025 9:02 PM EDT [facility] Blood PERIPHERAL BLOOD SPECIMEN / Unknown Venipuncture / Unknown 05/24/2025 6:58 PM EDT 05/24/2025 7:02 PM EDT us Rabia Velasco MD MICROBIOLOGY - GENERAL ORDERABLE S Final Result [facility] [address] [place] [address], [place] * XR Chest 1 VW Portable [...] SARS-CoV-2 Positive(A) Negative 05/24/2025 11:10 AM EDT [facility] Influenza A Negative Not Detected by PCR 05/24/2025 11:10 AM EDT [facility] Influenza B Negative Not Detected by PCR 05/24/2025 11:10 AM EDT [facility] RSV by PCR Negative Not Detected by PCR 05/24/2025 11:10 AM EDT [facility] Respiratory SWAB OF INTERNAL NOSE / Unknown Collection / Unknown 05/24/2025 10:28 AM EDT 05/24/2025 10:29 AM EDT Narrative [facility] - 05/24/2025 11:10 AM EDT Test performed by GeneXpert real-time PCR. us Rabia Velasco MD BODY FLUIDS AND STOOLS ORDERABLE S Final Result [facility] [address] [place] [address], [place] * (ABNORMAL) CBC and Differential (05/24/2025 6:28 AM EDT) WBC 11.29(H) 4.00 - 10.00 K/uL 05/24/2025 7:57 AM EDT [facility] RBC 4.35(L) 4.60 - 6.10 M/uL 05/24/2025 7:57 AM EDT [facility] Hemoglobin 13.5(L) 13.7 - 17.5 g/dL 05/24/2025 7:57 AM EDT [facility] Hematocrit 42.2 40.0 - 51.0 % 05/24/2025 7:57 AM EDT [facility] MCV 97 82 - 98 fL 05/24/2025 7:57 AM EDT [facility] MCH 31.0 26.0 - 32.0 pg 05/24/2025 7:57 AM EDT [facility] MCHC 32.0 32.0 - 37.0 g/dL 05/24/2025 7:57 AM EDT [facility] RDW 13.0 10.5 - 15.5 % 05/24/2025 7:57 AM EDT [facility] RDW-SD 46.5(H) 35.1 - 46.3 fL 05/24/2025 7:57 AM EDT [facility] Platelet Count 255 150 - 400 K/uL 05/24/2025 7:57 AM EDT [facility] Nucleated RBC 0 <=0 #/100 WBC 05/24/2025 7:57 AM EDT [facility] Neutrophil 80.7(H) 34.0 - 71.0 % 05/24/2025 7:57 AM EDT [facility] Lymphocyte 7.5(L) 19.0 - 53.0 % 05/24/2025 7:57 AM EDT [facility] Monocyte 11.0 5.0 - 13.0 % 05/24/2025 7:57 AM EDT [facility] Eosinophil 0.0(L) 1.0 - 7.0 % 05/24/2025 7:57 AM EDT [facility] Basophil 0.4 0.0 - 1.0 % 05/24/2025 7:57 AM EDT [facility] Immature Granulocyte ([place], Myelo, Promyelocyte) 0.4 0.0 - 0.6 % 05/24/2025 7:57 AM EDT [facility] Absolute Neutrophil Count 9.12(H) 1.60 - 6.10 K/uL 05/24/2025 7:57 AM EDT [facility] Absolute Lymphocyte Count 0.85(L) 1.20 - 3.70 K/uL 05/24/2025 7:57 AM EDT [facility] Absolute Monocyte Count 1.24(H) 0.20 - 0.80 K/uL 05/24/2025 7:57 AM EDT [facility] Absolute Eosinophil Count 0.00(L) 0.04 - 0.54 K/uL 05/24/2025 7:57 AM EDT [facility] Absolute Basophil Count 0.04 0.01 - 0.08 K/uL 05/24/2025 7:57 AM EDT [facility] Absolute Immature Granulocyte ([place], Myelo, Promyelocyte) 0.04 0.00 - 0.09 K/uL 05/24/2025 7:57 AM EDT [facility] Blood PERIPHERAL BLOOD SPECIMEN / Unknown Venipuncture / Unknown 05/24/2025 6:28 AM EDT 05/24/2025 6:53 AM EDT us Rabia Velasco MD LAB BLOOD ORDERABLES Final Resul t [facility] [address] [place] [address], * (ABNORMAL) Phosphorus (05/24/2025 6:27 AM EDT) Phosphorus 2.1(L) 2.7 - 4.5 mg/dL 05/24/2025 7:22 AM EDT [facility] Blood PERIPHERAL BLOOD SPECIMEN / Unknown Venipuncture / Unknown 05/24/2025 6:27 AM EDT 05/24/2025 6:49 AM EDT us Rabia Velasco MD LAB BLOOD ORDERABLES Final Resul t [facility] [address] [place] [id number], [place] * Magnesium (05/24/2025 6:27 AM EDT) Magnesium, Blood 2.5 1.6 - 2.6 mg/dL 05/24/2025 7:22 AM EDT [facility] Blood PERIPHERAL BLOOD SPECIMEN / Unknown Venipuncture / Unknown 05/24/2025 6:27 AM EDT 05/24/2025 6:49 AM EDT us Rabia Velasco MD LAB BLOOD ORDERABLES Final Resul t Performing Organization Address City/[facility]/ZIP Co de Phone Number [facility] [address] [place] [address], [place] * (ABNORMAL) Basic Metabolic Panel (05/24/2025 6:27 AM EDT) Sodium 141 135 - 147 mmol/L 05/24/2025 7:22 AM EDT [facility] Potassium 4.0 3.5 - 5.4 mmol/L 05/24/2025 7:22 AM EDT [facility] Chloride 104 96 - 108 mmol/L 05/24/2025 7:22 AM EDT [facility] Total CO2/Bicarbonat e 24 22 - 32 mmol/L 05/24/2025 7:22 AM EDT [facility] Anion Gap 13 10 - 18 mmol/L 05/24/2025 7:22 AM EDT [facility] BUN 25(H) 6 - 20 mg/dL 05/24/2025 7:22 AM EDT [facility] Creatinine, Blood 1.10 0.50 - 1.20 mg/dL 05/24/2025 7:22 AM EDT [facility] Glucose, Blood 185(H) 70 - 100 mg/dL 05/24/2025 7:22 AM EDT [facility] Calcium 9.0 8.4 - 10.3 mg/dL 05/24/2025 7:22 AM EDT [facility] Estimated GFR(CKD-EPI) 74 mL/min/BSA 05/24/2025 7:22 AM EDT [facility] Blood PERIPHERAL BLOOD SPECIMEN / Unknown Venipuncture / Unknown 05/24/2025 6:27 AM EDT 05/24/2025 6:49 AM EDT us Rabia Velasco MD LAB BLOOD ORDERABLES Final Resul t [facility] [address] [place] [address], [place] * (ABNORMAL) Hepatic Function Panel (05/24/2025 6:27 AM EDT) Total Protein 6.5 6.4 - 8.3 g/dL 05/24/2025 7:22 AM EDT [facility] Albumin, Blood 3.1(L) 3.5 - 5.2 g/dL 05/24/2025 7:22 AM EDT [facility] Globulin Result 3.4 2.0 - 4.0 g/dL 05/24/2025 7:22 AM EDT [facility] Total Bilirubin 0.5 0.0 - 1.5 mg/dL 05/24/2025 7:22 AM EDT [facility] Direct Bilirubin 0.1 0.0 - 0.3 mg/dL 05/24/2025 7:22 AM EDT [facility] Alkaline Phosphatase 147(H) 40 - 130 U/L 05/24/2025 7:22 AM EDT [facility] AST (SGOT) 22 0 - 40 U/L 05/24/2025 7:22 AM EDT [facility] ALT (SGPT) 8 0 - 40 U/L 05/24/2025 7:22 AM EDT [facility] Blood PERIPHERAL BLOOD SPECIMEN / Unknown Venipuncture / Unknown 05/24/2025 6:27 AM EDT 05/24/2025 6:49 AM EDT Rabia Velasco MD LAB BLOOD ORDERABLES Final Resul t [facility] [address] [place] [address], [place] * XR Chest 1 VW Portable [...] - 10.00 K/uL 05/22/2025 7:39 AM EDT [facility] RBC 4.28(L) 4.60 - 6.10 M/uL 05/22/2025 7:39 AM EDT [facility] Hemoglobin 13.3(L) 13.7 - 17.5 g/dL 05/22/2025 7:39 AM [facility] Hematocrit 41.1 40.0 - 51.0 % 05/22/2025 7:39 AM [facility] MCV 96 82 - 98 fL 05/22/2025 7:39 AM [facility] MCH 31.1 26.0 - 32.0 pg 05/22/2025 7:39 AM [facility] MCHC 32.4 32.0 - 37.0 g/dL 05/22/2025 7:39 AM [facility] RDW 12.8 10.5 - 15.5 % 05/22/2025 7:39 AM [facility] RDW-SD 45.0 35.1 - 46.3 fL 05/22/2025 7:39 AM [facility] Platelet Count 272 150 - 400 K/uL 05/22/2025 7:39 AM [facility] Nucleated RBC 0 <=0 #/100 WBC 05/22/2025 7:39 AM [facility] Neutrophil 82.1(H) 34.0 - 71.0 % 05/22/2025 7:39 AM [facility] Lymphocyte 8.0(L) 19.0 - 53.0 % 05/22/2025 7:39 AM [facility] Monocyte 8.9 5.0 - 13.0 % 05/22/2025 7:39 AM [facility] Eosinophil 0.0(L) 1.0 - 7.0 % 05/22/2025 7:39 AM [facility] Basophil 0.3 0.0 - 1.0 % 05/22/2025 7:39 AM [facility] Immature Granulocyte ([place], Myelo, Promyelocyte) 0.7(H) 0.0 - 0.6 % 05/22/2025 7:39 AM [facility] Absolute Neutrophil Count 10.00(H) 1.60 - 6.10 K/uL 05/22/2025 7:39 AM [facility] Absolute Lymphocyte Count 0.97(L) 1.20 - 3.70 K/uL 05/22/2025 7:39 AM EDT [facility] Absolute Monocyte Count 1.09(H) 0.20 - 0.80 K/uL 05/22/2025 7:39 AM EDT [facility] Absolute Eosinophil Count 0.00(L) 0.04 - 0.54 K/uL 05/22/2025 7:39 AM EDT [facility] Absolute Basophil Count 0.04 0.01 - 0.08 K/uL 05/22/2025 7:39 AM EDT [facility] Absolute Immature Granulocyte ([place], Myelo, Promyelocyte) 0.09 0.00 - 0.09 K/uL 05/22/2025 7:39 AM EDT [facility] Blood PERIPHERAL BLOOD SPECIMEN / Unknown Venipuncture / Unknown 05/22/2025 7:01 AM EDT 05/22/2025 7:20 AM EDT us Bonifacio Agudelo MD LAB BLOOD ORDERABLES Final Resul t [facility] [address] [place] [address], * ECG 12 lead (05/21/2025 12:55 PM EDT) Ventricular Heart Rate 95 BPM EKG BUR MUSE Atrial Heart Rate 95 BPM EKG BUR MUSE VT Interval 140 ms EKG BUR MUSE QRSD Interval 106 ms EKG BUR MUSE QT Interval 404 ms EKG BUR MUSE QTC Interval 507 ms EKG BUR MUSE P [place] 58 degrees EKG BUR MUSE R [place] -35 degrees EKG BUR MUSE T Wave [place] 44 degrees EKG BUR MUSE 05/21/2025 12:5 [...] ECG ORDERABLES Final Result Performing Organization Address [facility] Co de Phone Number EKG BUR MUSE [address] [place] [address] * ECG 12 lead (05/19/2025 11:42 AM EDT) Pathologist [facility] Ventricular Heart Rate 101 BPM EKG BUR MUSE Atrial Heart Rate 101 BPM EKG BUR MUSE VT Interval 150 ms EKG BUR MUSE QRSD Interval 100 ms EKG BUR MUSE QT Interval 386 ms EKG BUR MUSE QTC Interval 500 ms EKG BUR MUSE P [place] 35 degrees EKG BUR MUSE R [place] -33 degrees EKG BUR MUSE T Wave [place] 48 degrees EKG BUR MUSE 05/19/2025 11:4 [...] ECG ORDERABLES Final Result Performing Organization Address [facility] Co de Phone Number EKG BUR MUSE [address] [place] [address] * (ABNORMAL) POCT Glucose (05/16/2025 12:26 PM EDT) Glucose, POC 127(H) 70 - 100 mg/dL 05/16/2025 12:26 PM EDT [facility] Comment: @Serial Xjpzwq=[id number] @Librarian Helper RC=[id number] Blood 05/16/2025 12:2 6 PM EDT 05/16/2025 12:26 PM EDT us Mohinder Johnson MD POCT ORDERABLES - DEVICE Final Result [facility] [address] [place] [id number], * (ABNORMAL) CBC and Differential (05/15/2025 6:56 AM EDT) [facility] WBC 11.50(H) 4.00 - 10.00 K/uL 05/15/2025 8:16 AM EDT [facility] RBC 4.06(L) 4.60 - 6.10 M/uL 05/15/2025 8:16 AM EDT [facility] Hemoglobin 12.7(L) 13.7 - 17.5 g/dL 05/15/2025 8:16 AM EDT [facility] Hematocrit 39.2(L) 40.0 - 51.0 % 05/15/2025 8:16 AM EDT [facility] MCV 97 82 - 98 fL 05/15/2025 8:16 AM EDT [facility] MCH 31.3 26.0 - 32.0 pg 05/15/2025 8:16 AM EDT [facility] MCHC 32.4 32.0 - 37.0 g/dL 05/15/2025 8:16 AM EDT [facility] RDW 12.7 10.5 - 15.5 % 05/15/2025 8:16 AM EDT [facility] RDW-SD 45.1 35.1 - 46.3 fL 05/15/2025 8:16 AM EDT [facility] Platelet Count 277 150 - 400 K/uL 05/15/2025 8:16 AM [facility] Nucleated RBC 0 <=0 #/100 WBC 05/15/2025 8:16 AM [facility] Neutrophil 79.8(H) 34.0 - 71.0 % 05/15/2025 8:16 AM [facility] Lymphocyte 11.4(L) 19.0 - 53.0 % 05/15/2025 8:16 AM [facility] Monocyte 7.5 5.0 - 13.0 % 05/15/2025 8:16 AM [facility] Eosinophil 0.0(L) 1.0 - 7.0 % 05/15/2025 8:16 AM [facility] Basophil 0.4 0.0 - 1.0 % 05/15/2025 8:16 AM [facility] Immature Granulocyte ([place], Myelo, Promyelocyte) 0.9(H) 0.0 - 0.6 % 05/15/2025 8:16 AM [facility] Absolute Neutrophil Count 9.18(H) 1.60 - 6.10 K/uL 05/15/2025 8:16 AM [facility] Absolute Lymphocyte Count 1.31 1.20 - 3.70 K/uL 05/15/2025 8:16 AM [facility] Absolute Monocyte Count 0.86(H) 0.20 - 0.80 K/uL 05/15/2025 8:16 AM [facility] Absolute Eosinophil Count 0.00(L) 0.04 - 0.54 K/uL 05/15/2025 8:16 AM [facility] Absolute Basophil Count 0.05 0.01 - 0.08 K/uL 05/15/2025 8:16 AM [facility] Absolute Immature Granulocyte ([place], Myelo, Promyelocyte) 0.10(H) 0.00 - 0.09 K/uL 05/15/2025 8:16 AM [facility] Blood PERIPHERAL BLOOD SPECIMEN / Unknown Venipuncture / Unknown 05/15/2025 6:56 AM EDT 05/15/2025 7:20 AM EDT us Bonifacio Agudelo MD LAB BLOOD ORDERABLES Final Resul t [facility] [address] [place] [address], * (ABNORMAL) CBC and Differential (05/14/2025 3:40 PM EDT) WBC 8.40 4.00 - 10.00 K/uL 05/14/2025 3:57 PM EDT [facility] RBC 3.99(L) 4.60 - 6.10 M/uL 05/14/2025 3:57 PM EDT [facility] Hemoglobin 12.4(L) 13.7 - 17.5 g/dL 05/14/2025 3:57 PM EDT [facility] Hematocrit 38.4(L) 40.0 - 51.0 % 05/14/2025 3:57 PM EDT [facility] MCV 96 82 - 98 fL 05/14/2025 3:57 PM EDT [facility] MCH 31.1 26.0 - 32.0 pg 05/14/2025 3:57 PM EDT [facility] MCHC 32.3 32.0 - 37.0 g/dL 05/14/2025 3:57 PM EDT [facility] RDW 12.5 10.5 - 15.5 % 05/14/2025 3:57 PM EDT [facility] RDW-SD 44.4 35.1 - 46.3 fL 05/14/2025 3:57 PM EDT [facility] Platelet Count 279 150 - 400 K/uL 05/14/2025 3:57 PM EDT [facility] Nucleated RBC 0 <=0 #/100 WBC 05/14/2025 3:57 PM EDT [facility] Neutrophil 75.8(H) 34.0 - 71.0 % 05/14/2025 3:57 PM EDT [facility] Lymphocyte 15.1(L) 19.0 - 53.0 % 05/14/2025 3:57 PM EDT [facility] Monocyte 7.5 5.0 - 13.0 % 05/14/2025 3:57 PM EDT [facility] Eosinophil 0.0(L) 1.0 - 7.0 % 05/14/2025 3:57 PM EDT [facility] Basophil 0.5 0.0 - 1.0 % 05/14/2025 3:57 PM EDT [facility] Immature Granulocyte ([place], Myelo, Promyelocyte) 1.1(H) 0.0 - 0.6 % 05/14/2025 3:57 PM EDT [facility] Absolute Neutrophil Count 6.37(H) 1.60 - 6.10 K/uL 05/14/2025 3:57 PM EDT [facility] Absolute Lymphocyte Count 1.27 1.20 - 3.70 K/uL 05/14/2025 3:57 PM EDT [facility] Absolute Monocyte Count 0.63 0.20 - 0.80 K/uL 05/14/2025 3:57 PM EDT [facility] Absolute Eosinophil Count 0.00(L) 0.04 - 0.54 K/uL 05/14/2025 3:57 PM EDT [facility] Absolute Basophil Count 0.04 0.01 - 0.08 K/uL 05/14/2025 3:57 PM EDT [facility] Absolute Immature Granulocyte ([place], Myelo, Promyelocyte) 0.09 0.00 - 0.09 K/uL 05/14/2025 3:57 PM EDT [facility] Blood PERIPHERAL BLOOD SPECIMEN / Unknown Venipuncture / Unknown 05/14/2025 3:40 PM EDT 05/14/2025 3:47 PM EDT us Mohinder Johnson MD LAB BLOOD ORDERABLES Final Res ult [facility] [address] [place] [address], * (ABNORMAL) Renal Function Panel (05/14/2025 3:40 PM EDT) Sodium 142 135 - 147 mmol/L 05/14/2025 4:23 PM EDT [facility] Potassium 4.1 3.5 - 5.4 mmol/L 05/14/2025 4:23 PM EDT [facility] Chloride 105 96 - 108 mmol/L 05/14/2025 4:23 PM EDT [facility] Total CO2/Bicarbonate 27 22 - 32 mmol/L 05/14/2025 4:23 PM EDT [facility] Anion Gap 10 10 - 18 mmol/L 05/14/2025 4:23 PM EDT [facility] BUN 30(H) 6 - 20 mg/dL 05/14/2025 4:23 PM EDT [facility] Creatinine, Blood 1.00 0.50 - 1.20 mg/dL 05/14/2025 4:23 PM EDT [facility] Glucose, Blood 149(H) 70 - 100 mg/dL 05/14/2025 4:23 PM EDT [facility] Calcium 9.0 8.4 - 10.3 mg/dL 05/14/2025 4:23 PM EDT [facility] Albumin, Blood 3.3(L) 3.5 - 5.2 g/dL 05/14/2025 4:23 PM EDT [facility] Phosphorus 2.8 2.7 - 4.5 mg/dL 05/14/2025 4:23 PM EDT [facility] Magnesium, Blood 2.3 1.6 - 2.6 mg/dL 05/14/2025 4:23 PM EDT [facility] Estimated GFR(CKD-EPI) 82 mL/min/BSA 05/14/2025 4:23 PM EDT [facility] Blood PERIPHERAL BLOOD SPECIMEN / Unknown Venipuncture / Unknown 05/14/2025 3:40 PM EDT 05/14/2025 3:46 PM EDT us Mohinder Johnson MD LAB BLOOD ORDERABLES Final Res ult [facility] [address] [place] [address], [place] * XR Abdomen Portable (05/12/2025 6:34 [...] rescue with placement of a new 16 [facility] (3 cm stoma length) gastrostomy tube. Recommend [...] draped in a sterile fashion. A 12 [facility] Maharaj was identified in the gastrostomy tract. The balloon of the Maharaj was deflated. A stiff Glidewire was advanced through the Maharaj catheter into the stomach. The Maharaj was removed with gentle traction. A 16 [facility] low- profile 3 cm stoma gastrostomy tube was advanced over the stiff Glidewire and into the stomach. The balloon was inflated with sterile water. The gastrostomy tube was aspirated revealing gastric contents. The gastrostomy tube was then flushed sterile water. Sterile dressings were applied. Patient tolerated the procedure well. No immediate postprocedural complications. FINDINGS: Existing gastrostomy tract with 12 [facility] Maharaj. Placement of new 16 [facility] 3 cm low-profile gastrostomy tube with aspiration [...] draped in a sterile fashion. A 12 [facility] Maharaj was identifiedin the gastrostomy tract. The balloon of the Maharaj was deflated. A stiff Glidewire was advanced through the Foleycatheter into the stomach. The Maharaj was removed with gentle traction. A16 [facility] low-profile 3 cm stoma gastrostomy tube was advanced over thestiff Glidewire and into the stomach. The balloon was inflated with sterile water. The gastrostomy tubewas aspirated revealing gastric contents. The gastrostomy tube was thenflushed sterile water. Sterile dressings were applied. Patient tolerated the procedure well. No immediate postproceduralcomplications. FINDINGS: Existing gastrostomy tract with 12 [facility] Maharaj. Placement of new 16 [facility] 3 cm low-profile gastrostomy tube withaspiration of [...] Heart Rate 95 BPM EKG BUR MUSE VT Interval 154 ms EKG BUR MUSE QRSD Interval 100 ms EKG BUR MUSE QT Interval 394 ms EKG BUR MUSE QTC Interval 495 ms EKG BUR MUSE P [place] 87 degrees EKG BUR MUSE R [place] -37 degrees EKG BUR MUSE T Wave [place] 65 degrees EKG BUR MUSE 05/11/2025 11:3 [...] ECG ORDERABLES Final Result Performing Organization Address [facility]/ZIP Co de Phone Number EKG KATH [address] [address] * POCT Glucose (05/11/2025 11:31 PM EDT) Glucose, POC 100 70 - 100 mg/dL 05/11/2025 11:41 PM EDT [facility] Comment: @Serial Xmhngt=[id number] @Librarian Helper YY=[id number] Blood 05/11/2025 11:3 1 PM EDT 05/11/2025 11:41 PM EDT us Mohinder Johnson MD POCT ORDERABLES - DEVICE Final Result Performing Organization Address City/[facility] Co de Phone Number [facility] [address] [place] [address], * (ABNORMAL) CBC and Differential (05/09/2025 7:24 AM EDT) WBC 11.73(H) 4.00 - 10.00 K/uL 05/09/2025 8:03 AM EDT [facility] RBC 3.76(L) 4.60 - 6.10 M/uL 05/09/2025 8:03 AM EDT [facility] Hemoglobin 11.9(L) 13.7 - 17.5 g/dL 05/09/2025 8:03 AM EDT [facility] Hematocrit 36.1(L) 40.0 - 51.0 % 05/09/2025 8:03 AM T [facility] MCV 96 82 - 98 fL 05/09/2025 8:03 AM [facility] MCH 31.6 26.0 - 32.0 pg 05/09/2025 8:03 AM [facility] MCHC 33.0 32.0 - 37.0 g/dL 05/09/2025 8:03 AM T [facility] RDW 12.9 10.5 - 15.5 % 05/09/2025 8:03 AM [facility] RDW-SD 44.8 35.1 - 46.3 fL 05/09/2025 8:03 AM [facility] Platelet Count 262 150 - 400 K/uL 05/09/2025 8:03 AM [facility] Nucleated RBC 0 <=0 #/100 WBC 05/09/2025 8:03 AM [facility] Neutrophil 79.6(H) 34.0 - 71.0 % 05/09/2025 8:03 AM [facility] Lymphocyte 12.9(L) 19.0 - 53.0 % 05/09/2025 8:03 AM [facility] Monocyte 6.3 5.0 - 13.0 % 05/09/2025 8:03 AM [facility] Eosinophil 0.0(L) 1.0 - 7.0 % 05/09/2025 8:03 AM [facility] Basophil 0.3 0.0 - 1.0 % 05/09/2025 8:03 AM [facility] Immature Granulocyte ([place], Myelo, Promyelocyte) 0.9(H) 0.0 - 0.6 % 05/09/2025 8:03 AM [facility] Absolute Neutrophil Count 9.33(H) 1.60 - 6.10 K/uL 05/09/2025 8:03 AM [facility] Absolute Lymphocyte Count 1.51 1.20 - 3.70 K/uL 05/09/2025 8:03 AM T [facility] Absolute Monocyte Count 0.74 0.20 - 0.80 K/uL 05/09/2025 8:03 AM EDT [facility] Absolute Eosinophil Count 0.00(L) 0.04 - 0.54 K/uL 05/09/2025 8:03 AM EDT [facility] Absolute Basophil Count 0.04 0.01 - 0.08 K/uL 05/09/2025 8:03 AM EDT [facility] Absolute Immature Granulocyte ([place], Myelo, Promyelocyte) 0.11(H) 0.00 - 0.09 K/uL 05/09/2025 8:03 AM EDT [facility] Blood PERIPHERAL BLOOD SPECIMEN / Unknown Venipuncture / Unknown 05/09/2025 7:24 AM EDT 05/09/2025 7:29 AM EDT us Mohinder Johnson MD LAB BLOOD ORDERABLES Final Res ult [facility] [address] [place] [address], * (ABNORMAL) CBC and Differential (05/08/2025 6:53 AM EDT) WBC 12.58(H) 4.00 - 10.00 K/uL 05/08/2025 7:39 AM EDT [facility] RBC 3.83(L) 4.60 - 6.10 M/uL 05/08/2025 7:39 AM EDT [facility] Hemoglobin 11.9(L) 13.7 - 17.5 g/dL 05/08/2025 7:39 AM EDT [facility] Hematocrit 37.0(L) 40.0 - 51.0 % 05/08/2025 7:39 AM EDT [facility] MCV 97 82 - 98 fL 05/08/2025 7:39 AM EDT [facility] MCH 31.1 26.0 - 32.0 pg 05/08/2025 7:39 AM EDT [facility] MCHC 32.2 32.0 - 37.0 g/dL 05/08/2025 7:39 AM [facility] RDW 12.9 10.5 - 15.5 % 05/08/2025 7:39 AM [facility] RDW-SD 45.8 35.1 - 46.3 fL 05/08/2025 7:39 AM [facility] Platelet Count 263 150 - 400 K/uL 05/08/2025 7:39 AM [facility] Nucleated RBC 0 <=0 #/100 WBC 05/08/2025 7:39 AM [facility] Neutrophil 80.4(H) 34.0 - 71.0 % 05/08/2025 7:39 AM [facility] Lymphocyte 11.9(L) 19.0 - 53.0 % 05/08/2025 7:39 AM [facility] Monocyte 6.5 5.0 - 13.0 % 05/08/2025 7:39 AM [facility] Eosinophil 0.0(L) 1.0 - 7.0 % 05/08/2025 7:39 AM [facility] Basophil 0.2 0.0 - 1.0 % 05/08/2025 7:39 AM [facility] Immature Granulocyte ([place], Myelo, Promyelocyte) 1.0(H) 0.0 - 0.6 % 05/08/2025 7:39 AM [facility] Absolute Neutrophil Count 10.12(H) 1.60 - 6.10 K/uL 05/08/2025 7:39 AM [facility] Absolute Lymphocyte Count 1.50 1.20 - 3.70 K/uL 05/08/2025 7:39 AM [facility] Absolute Monocyte Count 0.82(H) 0.20 - 0.80 K/uL 05/08/2025 7:39 AM [facility] Absolute Eosinophil Count 0.00(L) 0.04 - 0.54 K/uL 05/08/2025 7:39 AM [facility] Absolute Basophil Count 0.02 0.01 - 0.08 K/uL 05/08/2025 7:39 AM [facility] Absolute Immature Granulocyte ([place], Myelo, Promyelocyte) 0.12(H) 0.00 - 0.09 K/uL 05/08/2025 7:39 AM EDT [facility] Blood PERIPHERAL BLOOD SPECIMEN / Unknown Venipuncture / Unknown 05/08/2025 6:53 AM EDT 05/08/2025 7:07 AM EDT us Bonifacio Agudelo MD LAB BLOOD ORDERABLES Final Resul t [facility] [address] [place] [address], [place] * XR Chest 1 VW Portable [...] Viral, Molecular (05/07/2025 12:20 PM EDT) Pathologist [facility] Coronavirus SARS-CoV-2 Negative Negative 05/07/2025 6:15 PM EDT [facility] Influenza A, PCR Negative Negative 05/07/20 6:15 PM EDT [facility] Influenza B, PCR Negative Negative 05/07/20 6:15 PM EDT [facility] RSV by PCR Negative Negative 05/07/2025 6:15 PM EDT [facility] Respiratory SWAB OF INTERNAL NOSE / Unknown Collection / Unknown 05/07/2025 12:20 PM EDT 05/07/2025 12:33 PM EDT Narrative [facility] - 05/07/2025 6:15 PM EDT Test performed with Alinity m Resp-4-Plex PCR assay, which has received emergency use authorization (EUA) by the U.S.Food and Drug Administration. Test performance verified by [facility] Molecular Microbiology Laboratory [address] [place] [address]. Dr. Dunia Adames MD. CLIA [id number], CAP [id number] . Mohinder Johnson MD BODY FLUIDS AND STOOLS ORDERAB LES Final Result [facility] [address] [place] [address], * (ABNORMAL) CBC and Differential (05/07/2025 6:37 AM EDT) Pathologist [facility] WBC 16.33(H) 4.00 - 10.00 K/uL 05/07/2025 7:42 AM EDT [facility] RBC 4.29(L) 4.60 - 6.10 M/uL 05/07/2025 7:42 AM EDT [facility] Hemoglobin 13.5(L) 13.7 - 17.5 g/dL 05/07/2025 7:42 AM EDT [facility] Hematocrit 41.3 40.0 - 51.0 % 05/07/2025 7:42 AM [facility] MCV 96 82 - 98 fL 05/07/2025 7:42 AM [facility] MCH 31.5 26.0 - 32.0 pg 05/07/2025 7:42 AM [facility] MCHC 32.7 32.0 - 37.0 g/dL 05/07/2025 7:42 AM [facility] RDW 13.0 10.5 - 15.5 % 05/07/2025 7:42 AM [facility] RDW-SD 45.8 35.1 - 46.3 fL 05/07/2025 7:42 AM [facility] Platelet Count 306 150 - 400 K/uL 05/07/2025 7:42 AM [facility] Nucleated RBC 0 <=0 #/100 WBC 05/07/2025 7:42 AM [facility] Neutrophil 84.5(H) 34.0 - 71.0 % 05/07/2025 7:42 AM [facility] Lymphocyte 7.8(L) 19.0 - 53.0 % 05/07/2025 7:42 AM [facility] Monocyte 6.4 5.0 - 13.0 % 05/07/2025 7:42 AM [facility] Eosinophil 0.1(L) 1.0 - 7.0 % 05/07/2025 7:42 AM [facility] Basophil 0.4 0.0 - 1.0 % 05/07/2025 7:42 AM [facility] Immature Granulocyte ([place], Myelo, Promyelocyte) 0.8(H) 0.0 - 0.6 % 05/07/2025 7:42 AM [facility] Absolute Neutrophil Count 13.81(H) 1.60 - 6.10 K/uL 05/07/2025 7:42 AM [facility] Absolute Lymphocyte Count 1.27 1.20 - 3.70 K/uL 05/07/2025 7:42 AM [facility] Absolute Monocyte Count 1.04(H) 0.20 - 0.80 K/uL 05/07/2025 7:42 AM EDT [facility] Absolute Eosinophil Count 0.02(L) 0.04 - 0.54 K/uL 05/07/2025 7:42 AM EDT [facility] Absolute Basophil Count 0.06 0.01 - 0.08 K/uL 05/07/2025 7:42 AM EDT [facility] Absolute Immature Granulocyte ([place], Myelo, Promyelocyte) 0.13(H) 0.00 - 0.09 K/uL 05/07/2025 7:42 AM EDT [facility] Blood PERIPHERAL BLOOD SPECIMEN / Unknown Venipuncture / Unknown 05/07/2025 6:37 AM EDT 05/07/2025 6:55 AM EDT us Mohinder Johnson MD LAB BLOOD ORDERABLES Final Res ult [facility] [address] [place] [address], * ECG 12 lead (05/06/2025 3:43 PM EDT) Ventricular Heart Rate 86 BPM EKG BUR MUSE Atrial Heart Rate 86 BPM EKG BUR MUSE VT Interval 152 ms EKG BUR MUSE QRSD Interval 122 ms EKG BUR MUSE QT Interval 430 ms EKG BUR MUSE QTC Interval 514 ms EKG BUR MUSE P [place] 59 degrees EKG BUR MUSE R [place] -29 degrees EKG BUR MUSE T Wave [place] 41 degrees EKG BUR MUSE 05/06/2025 3:41 [...] MD ECG ORDERABLES Final Result EKG [facility] [address] [address] * (ABNORMAL) CBC and Differential (05/06/2025 3:23 PM EDT) WBC 11.93(H) 4.00 - 10.00 K/uL 05/06/2025 4:03 PM EDT [facility] RBC 3.78(L) 4.60 - 6.10 M/uL 05/06/2025 4:03 PM EDT [facility] Hemoglobin 12.0(L) 13.7 - 17.5 g/dL 05/06/2025 4:03 PM EDT [facility] Hematocrit 36.5(L) 40.0 - 51.0 % 05/06/2025 4:03 PM EDT [facility] MCV 97 82 - 98 fL 05/06/2025 4:03 PM EDT [facility] MCH 31.7 26.0 - 32.0 pg 05/06/2025 4:03 PM EDT [facility] MCHC 32.9 32.0 - 37.0 g/dL 05/06/2025 4:03 PM EDT [facility] RDW 12.8 10.5 - 15.5 % 05/06/2025 4:03 PM EDT [facility] RDW-SD 45.0 35.1 - 46.3 fL 05/06/2025 4:03 PM EDT [facility] Platelet Count 294 150 - 400 K/uL 05/06/2025 4:03 PM EDT [facility] Nucleated RBC 0 <=0 #/100 WBC 05/06/2025 4:03 PM EDT [facility] Neutrophil 78.0(H) 34.0 - 71.0 % 05/06/2025 4:03 PM EDT [facility] Lymphocyte 13.7(L) 19.0 - 53.0 % 05/06/2025 4:03 PM EDT [facility] Monocyte 6.7 5.0 - 13.0 % 05/06/2025 4:03 PM EDT [facility] Eosinophil 0.0(L) 1.0 - 7.0 % 05/06/2025 4:03 PM EDT [facility] Basophil 0.3 0.0 - 1.0 % 05/06/2025 4:03 PM EDT [facility] Immature Granulocyte ([place], Myelo, Promyelocyte) 1.3(H) 0.0 - 0.6 % 05/06/2025 4:03 PM EDT [facility] Absolute Neutrophil Count 9.29(H) 1.60 - 6.10 K/uL 05/06/2025 4:03 PM EDT [facility] Absolute Lymphocyte Count 1.64 1.20 - 3.70 K/uL 05/06/2025 4:03 PM EDT [facility] Absolute Monocyte Count 0.80 0.20 - 0.80 K/uL 05/06/2025 4:03 PM EDT [facility] Absolute Eosinophil Count 0.00(L) 0.04 - 0.54 K/uL 05/06/2025 4:03 PM EDT [facility] Absolute Basophil Count 0.04 0.01 - 0.08 K/uL 05/06/2025 4:03 PM EDT [facility] Absolute Immature Granulocyte ([place], Myelo, Promyelocyte) 0.16(H) 0.00 - 0.09 K/uL 05/06/2025 4:03 PM EDT [facility] Blood PERIPHERAL BLOOD SPECIMEN / Unknown Venipuncture / Unknown 05/06/2025 3:23 PM EDT 05/06/2025 3:26 PM EDT us Mohinder Johnson MD LAB BLOOD ORDERABLES Final Res ult [facility] [address] [place] [address], [place] * (ABNORMAL) CBC and Differential (05/05/2025 6:35 AM EDT) WBC 11.60(H) 4.00 - 10.00 K/uL 05/05/2025 7:59 AM EDT [facility] RBC 3.95(L) 4.60 - 6.10 M/uL 05/05/2025 7:59 AM T [facility] Hemoglobin 12.5(L) 13.7 - 17.5 g/dL 05/05/2025 7:59 AM T [facility] Hematocrit 38.0(L) 40.0 - 51.0 % 05/05/2025 7:59 AM T [facility] MCV 96 82 - 98 fL 05/05/2025 7:59 AM T [facility] MCH 31.6 26.0 - 32.0 pg 05/05/2025 7:59 AM T [facility] MCHC 32.9 32.0 - 37.0 g/dL 05/05/2025 7:59 AM T [facility] RDW 12.8 10.5 - 15.5 % 05/05/2025 7:59 AM [facility] RDW-SD 45.6 35.1 - 46.3 fL 05/05/2025 7:59 AM T [facility] Platelet Count 298 150 - 400 K/uL 05/05/2025 7:59 AM T [facility] Nucleated RBC 0 <=0 #/100 WBC 05/05/2025 7:59 AM [facility] Neutrophil 75.0(H) 34.0 - 71.0 % 05/05/2025 7:59 AM T [facility] Lymphocyte 15.4(L) 19.0 - 53.0 % 05/05/2025 7:59 AM EDT [facility] Monocyte 7.8 5.0 - 13.0 % 05/05/2025 7:59 AM T [facility] Eosinophil 0.0(L) 1.0 - 7.0 % 05/05/2025 7:59 AM T [facility] Basophil 0.5 0.0 - 1.0 % 05/05/2025 7:59 AM EDT [facility] Immature Granulocyte ([place], Myelo, Promyelocyte) 1.3(H) 0.0 - 0.6 % 05/05/2025 7:59 AM EDT [facility] Absolute Neutrophil Count 8.69(H) 1.60 - 6.10 K/uL 05/05/2025 7:59 AM EDT [facility] Absolute Lymphocyte Count 1.79 1.20 - 3.70 K/uL 05/05/2025 7:59 AM EDT [facility] Absolute Monocyte Count 0.91(H) 0.20 - 0.80 K/uL 05/05/2025 7:59 AM EDT [facility] Absolute Eosinophil Count 0.00(L) 0.04 - 0.54 K/uL 05/05/2025 7:59 AM EDT [facility] Absolute Basophil Count 0.06 0.01 - 0.08 K/uL 05/05/2025 7:59 AM EDT [facility] Absolute Immature Granulocyte ([place], Myelo, Promyelocyte) 0.15(H) 0.00 - 0.09 K/uL 05/05/2025 7:59 AM EDT [facility] Blood PERIPHERAL BLOOD SPECIMEN / Unknown Venipuncture / Unknown 05/05/2025 6:35 AM EDT 05/05/2025 7:11 AM EDT us Mohinder Johnson MD LAB BLOOD ORDERABLES Final Res ult [facility] [address] [place] [address], [place] * XR Chest 1 VW Portable [...] while awake Note on seizure risk / [id number] scores: Interpretation of scores the risk of [...] <5%. Assessment of the Validity of the [id number] Score for Inpatient Seizure Risk Prediction. DEB [...] EPILEPTIFORM DISCHARGES: None EVENTS: None ECG: Unremarkable [id number] score (on day 1 of EEG): 0 us Mildred Srinivasan MD NEUROLOGY ORDERABLES Final Resu lt * (ABNORMAL) CBC and Differential (05/01/2025 6:23 AM EDT) WBC 11.29(H) 4.00 - 10.00 K/uL 05/01/2025 7:27 AM EDT [facility] RBC 3.86(L) 4.60 - 6.10 M/uL 05/01/2025 7:27 AM EDT [facility] Hemoglobin 12.0(L) 13.7 - 17.5 g/dL 05/01/2025 7:27 AM EDT [facility] Hematocrit 36.4(L) 40.0 - 51.0 % 05/01/2025 7:27 AM [facility] MCV 94 82 - 98 fL 05/01/2025 7:27 AM [facility] MCH 31.1 26.0 - 32.0 pg 05/01/2025 7:27 AM [facility] MCHC 33.0 32.0 - 37.0 g/dL 05/01/2025 7:27 AM [facility] RDW 13.0 10.5 - 15.5 % 05/01/2025 7:27 AM [facility] RDW-SD 44.9 35.1 - 46.3 fL 05/01/2025 7:27 AM [facility] Platelet Count 292 150 - 400 K/uL 05/01/2025 7:27 AM [facility] Nucleated RBC 0 <=0 #/100 WBC 05/01/2025 7:27 AM [facility] Neutrophil 79.9(H) 34.0 - 71.0 % 05/01/2025 7:27 AM [facility] Lymphocyte 11.9(L) 19.0 - 53.0 % 05/01/2025 7:27 AM [facility] Monocyte 7.3 5.0 - 13.0 % 05/01/2025 7:27 AM [facility] Eosinophil 0.0(L) 1.0 - 7.0 % 05/01/2025 7:27 AM [facility] Basophil 0.4 0.0 - 1.0 % 05/01/2025 7:27 AM [facility] Immature Granulocyte ([place], Myelo, Promyelocyte) 0.5 0.0 - 0.6 % 05/01/2025 7:27 AM [facility] Absolute Neutrophil Count 9.03(H) 1.60 - 6.10 K/uL 05/01/2025 7:27 AM [facility] Absolute Lymphocyte Count 1.34 1.20 - 3.70 K/uL 05/01/2025 7:27 AM [facility] Absolute Monocyte Count 0.82(H) 0.20 - 0.80 K/uL 05/01/2025 7:27 AM [facility] Absolute Eosinophil Count 0.00(L) 0.04 - 0.54 K/uL 05/01/2025 7:27 AM EDT [facility] Absolute Basophil Count 0.04 0.01 - 0.08 K/uL 05/01/2025 7:27 AM EDT [facility] Absolute Immature Granulocyte ([place], Myelo, Promyelocyte) 0.06 0.00 - 0.09 K/uL 05/01/2025 7:27 AM EDT [facility] Blood PERIPHERAL BLOOD SPECIMEN / Unknown Venipuncture / Unknown 05/01/2025 6:23 AM EDT 05/01/2025 7:12 AM EDT us Bonifacio Agudelo MD LAB BLOOD ORDERABLES Final Resul t [facility] [address] [place] [address], [place] * EEG 24 Hour Continuous Video EEG (LTM) (04/30/2025 2:04 PM EDT) Anatomical Region Laterality Modality EEG Impressions 05/01/2025 9:40 AM EDT Abnormal EEG due to - intermittent background 5-7Hz theta slowing while awake Note on seizure risk / [id number] scores: Interpretation of scores the risk of [...] <5%. Assessment of the Validity of the [id number] Score for Inpatient Seizure Risk Prediction. DEB [...] EPILEPTIFORM DISCHARGES: None EVENTS: None ECG: Unremarkable [id number] score (on day 1 of EEG): 0 us Mildred Srinivasan MD NEUROLOGY ORDERABLES Final Resu lt * (ABNORMAL) Urinalysis with Sediment (04/30/2025 12:21 PM EDT) Color, Urine Yellow Yellow, Colorless, Straw 04/30/2025 12:40 PM EDT [facility] Clarity, Urine Hazy(A) Clear 04/30/2025 12:40 PM EDT [facility] pH, Urine 7.0 5.0 - 8.0 04/30/2025 12:40 PM EDT [facility] Protein, Urine Negative Negative 04/30/2025 12:40 PM EDT [facility] Glucose, Urine Negative Negative 04/30/2025 12:40 PM EDT [facility] Ketone, Urine Negative Negative 04/30/2025 12:40 PM EDT [facility] Bilirubin, Urine Negative Negative 04/30/2025 12:40 PM EDT [facility] Urobilinogen, Urine Normal 0.2-1.0 mg/dL 04/30/2025 12:40 PM EDT [facility] Blood, Urine Negative Negative 04/30/2025 12:40 PM EDT [facility] Leukocyte Esterase, Urine Negative Negative 04/30/2025 12:40 PM EDT [facility] Nitrite, Urine Negative Negative 04/30/2025 12:40 PM EDT [facility] Specific [place], Urine 1.016 1.001 - 1.050 04/30/2025 12:40 PM EDT [facility] White Blood Cells, Urine <1 0 - 5 /hpf 04/30/2025 12:40 PM EDT [facility] Red Blood Cells, Urine <1 0 - 2 /hpf 04/30/2025 12:40 PM EDT [facility] Urine MID-STREAM URINE SPECIMEN / Unknown Collection / Unknown 04/30/2025 12:21 PM EDT 04/30/2025 12:35 PM EDT us Mildred Srinivasan MD URINE ORDERABLES Final Result [facility] [address] [place] [address], [place] * XR Abdomen 1 VW (04/30/2025 [...] Heart Rate 87 BPM EKG BUR MUSE VT Interval 148 ms EKG BUR MUSE QRSD Interval 116 ms EKG BUR MUSE QT Interval 426 ms EKG BUR MUSE QTC Interval 512 ms EKG BUR MUSE P [place] 50 degrees EKG BUR MUSE R [place] -32 degrees EKG BUR MUSE T Wave [place] 34 degrees EKG BUR MUSE 04/30/2025 10:1 [...] ECG ORDERABLES Final Result Performing Organization Address City/[facility]/ZIP Co de Phone Number EKG KATH MUSE [address] [place] [id number] * (ABNORMAL) D-dimer (04/30/2025 10:14 AM EDT) [facility] D-Dimer 605(H) <=500 ng/mL FEU 04/30/2025 10:37 AM EDT [facility] Comment:In ambulatory patien ts with low pre-test probability (Wells Criteria); D-Dimer <500 can be used to exclude venous thomboembolic disease. Blood PERIPHERAL BLOOD SPECIMEN / Unknown Venipuncture / Unknown 04/30/2025 10:14 AM EDT 04/30/2025 10:20 AM EDT Mildred Srinivasan MD LAB BLOOD ORDERABLES Final Resu lt [facility] [address] [place] [address], [place] * Phosphorus (04/30/2025 10:10 AM EDT) [facility] Phosphorus 3.0 2.7 - 4.5 mg/dL 04/30/2025 11:07 AM EDT [facility] Blood PERIPHERAL BLOOD SPECIMEN / Unknown Venipuncture / Unknown 04/30/2025 10:10 AM EDT 04/30/2025 10:20 AM EDT Mildred Srinivasan MD LAB BLOOD ORDERABLES Final Resu lt Performing Organization Address City/[facility]/ZIP Co de Phone Number [facility] [address] [place] [address], [place] * Magnesium (04/30/2025 10:10 AM EDT) Magnesium, Blood 2.3 1.6 - 2.6 mg/dL 04/30/2025 11:07 AM EDT [facility] Blood PERIPHERAL BLOOD SPECIMEN / Unknown Venipuncture / Unknown 04/30/2025 10:10 AM EDT 04/30/2025 10:20 AM EDT Mildred Srinivasan MD LAB BLOOD ORDERABLES Final Resu lt Performing Organization Address City/[facility]/ZIP Co de Phone Number [facility] [address] [place] [address], [place] * (ABNORMAL) Basic Metabolic Panel (04/30/2025 10:10 AM EDT) Sodium 140 135 - 147 mmol/L 04/30/2025 11:07 AM EDT [facility] Potassium 4.0 3.5 - 5.4 mmol/L 04/30/2025 11:07 AM EDT [facility] Chloride 103 96 - 108 mmol/L 04/30/2025 11:07 AM EDT [facility] Total CO2/Bicarbonat e 27 22 - 32 mmol/L 04/30/2025 11:07 AM EDT [facility] Anion Gap 10 10 - 18 mmol/L 04/30/2025 11:07 AM EDT [facility] BUN 28(H) 6 - 20 mg/dL 04/30/2025 11:07 AM EDT [facility] Creatinine, Blood 0.90 0.50 - 1.20 mg/dL 04/30/2025 11:07 AM EDT [facility] Glucose, Blood 149(H) 70 - 100 mg/dL 04/30/2025 11:07 AM EDT [facility] Calcium 9.3 8.4 - 10.3 mg/dL 04/30/2025 11:07 AM EDT [facility] Estimated GFR(CKD-EPI) 94 mL/min/BSA 04/30/2025 11:07 AM EDT [facility] Blood PERIPHERAL BLOOD SPECIMEN / Unknown Venipuncture / Unknown 04/30/2025 10:10 AM EDT 04/30/2025 10:20 AM EDT us Mildred Srinivasan MD LAB BLOOD ORDERABLES Final Resu lt [facility] [address] [place] [address], [place] * (ABNORMAL) Hepatic Function Panel (04/30/2025 10:10 AM EDT) Total Protein 6.1(L) 6.4 - 8.3 g/dL 04/30/2025 11:07 AM EDT [facility] Albumin, Blood 3.3(L) 3.5 - 5.2 g/dL 04/30/2025 11:07 AM T [facility] Globulin Result 2.8 2.0 - 4.0 g/dL 04/30/2025 11:07 AM EDT [facility] Total Bilirubin 0.3 0.0 - 1.5 mg/dL 04/30/2025 11:07 AM EDT [facility] Direct Bilirubin 0.1 0.0 - 0.3 mg/dL 04/30/2025 11:07 AM EDT [facility] Alkaline Phosphatase 153(H) 40 - 130 U/L 04/30/2025 11:07 AM EDT [facility] AST (SGOT) 18 0 - 40 U/L 04/30/2025 11:07 AM EDT [facility] ALT (SGPT) <5 0 - 40 U/L 04/30/2025 11:07 AM EDT [facility] Blood PERIPHERAL BLOOD SPECIMEN / Unknown Venipuncture / Unknown 04/30/2025 10:10 AM EDT 04/30/2025 10:20 AM EDT Mildred Srinivasan MD LAB BLOOD ORDERABLES Final Resu lt [facility] [address] [place] [address], [place] * (ABNORMAL) CK (Creatine Kinase) (04/30/2025 10:10 AM EDT) Creatine Kinase Total (CK) 35(L) 47 - 322 U/L 04/30/2025 11:07 AM EDT [facility] Blood PERIPHERAL BLOOD SPECIMEN / Unknown Venipuncture / Unknown 04/30/2025 10:10 AM EDT 04/30/2025 10:20 AM EDT Mildred Srinivasan MD LAB BLOOD ORDERABLES Final Resu lt Performing Organization Address City/[facility]/ZIP Co de Phone Number [facility] [address] [place] [address], [place] * Lactate Dehydrogenase, Blood (04/30/2025 10:10 AM EDT) Lactate Dehydrogenase (LDH) 192 94 - 250 U/L 04/30/2025 11:07 AM EDT [facility] Blood PERIPHERAL BLOOD SPECIMEN / Unknown Venipuncture / Unknown 04/30/2025 10:10 AM EDT 04/30/2025 10:20 AM EDT Mildred Srinivasan MD LAB BLOOD ORDERABLES Final Resu lt [facility] [address] [place] [address], [place] * (ABNORMAL) CBC (04/30/2025 10:10 AM EDT) WBC 8.60 4.00 - 10.00 K/uL 04/30/2025 10:27 AM EDT [facility] RBC 4.04(L) 4.60 - 6.10 M/uL 04/30/2025 10:27 AM EDT [facility] Hemoglobin 12.7(L) 13.7 - 17.5 g/dL 04/30/2025 10:27 AM EDT [facility] Hematocrit 38.3(L) 40.0 - 51.0 % 04/30/2025 10:27 AM EDT [facility] MCV 95 82 - 98 fL 04/30/2025 10:27 AM EDT [facility] MCH 31.4 26.0 - 32.0 pg 04/30/2025 10:27 AM EDT [facility] MCHC 33.2 32.0 - 37.0 g/dL 04/30/2025 10:27 AM EDT [facility] RDW 13.0 10.5 - 15.5 % 04/30/2025 10:27 AM EDT [facility] RDW-SD 44.6 35.1 - 46.3 fL 04/30/2025 10:27 AM EDT [facility] Platelet Count 268 150 - 400 K/uL 04/30/2025 10:27 AM EDT [facility] Nucleated RBC 0 <=0 #/100 WBC 04/30/2025 10:27 AM T [facility] Blood PERIPHERAL BLOOD SPECIMEN / Unknown Venipuncture / Unknown 04/30/2025 10:10 AM EDT 04/30/2025 10:20 AM EDT us Mildred Srinivasan MD LAB BLOOD ORDERABLES Final Resu lt [facility] [address] [place] [address], * (ABNORMAL) POCT Glucose (04/30/2025 9:42 AM EDT) Glucose, POC 143(H) 70 - 100 mg/dL 04/30/2025 9:44 AM EDT [facility] Comment: @Serial Bqyrvh=[id number] @Librarian Helper RX=[id number] Blood 04/30/2025 9:42 AM EDT 04/30/2025 9:44 AM EDT us Mildred Srinivasan MD POCT ORDERABLES - DEVICE Final Result Performing Organization Address City/[facility] Co de Phone Number [facility] [address] [place] [address], [place] * ECG 12 lead (04/29/2025 11:54 AM EDT) Ventricular Heart Rate 112 BPM EKG BUR MUSE Atrial Heart Rate 112 BPM EKG BUR MUSE VT Interval 156 ms EKG BUR MUSE QRSD Interval 102 ms EKG BUR MUSE QT Interval 358 ms EKG BUR MUSE QTC Interval 488 ms EKG BUR MUSE P [place] 61 degrees EKG BUR MUSE R [place] -35 degrees EKG BUR MUSE T Wave [place] 50 degrees EKG BUR MUSE 04/29/2025 10:3 [...] ECG ORDERABLES Final Result Performing Organization Address City/[facility]/ZIP Co de Phone Number EKG BUR MUSE [address] [place] [id number] * (ABNORMAL) CBC and Differential (04/28/2025 4:56 AM EDT) WBC 11.11(H) 4.00 - 10.00 K/uL 04/28/2025 5:23 AM T [facility] RBC 3.99(L) 4.60 - 6.10 M/uL 04/28/2025 5:23 AM EDT [facility] Hemoglobin 12.4(L) 13.7 - 17.5 g/dL 04/28/2025 5:23 AM T [facility] Hematocrit 36.6(L) 40.0 - 51.0 % 04/28/2025 5:23 AM EDT [facility] MCV 92 82 - 98 fL 04/28/2025 5:23 AM EDT [facility] MCH 31.1 26.0 - 32.0 pg 04/28/2025 5:23 AM T [facility] MCHC 33.9 32.0 - 37.0 g/dL 04/28/2025 5:23 AM [facility] RDW 13.1 10.5 - 15.5 % 04/28/2025 5:23 AM T [facility] RDW-SD 43.9 35.1 - 46.3 fL 04/28/2025 5:23 AM [facility] Platelet Count 310 150 - 400 K/uL 04/28/2025 5:23 AM [facility] Nucleated RBC 0 <=0 #/100 WBC 04/28/2025 5:23 AM [facility] Neutrophil 74.6(H) 34.0 - 71.0 % 04/28/2025 5:23 AM [facility] Lymphocyte 13.6(L) 19.0 - 53.0 % 04/28/2025 5:23 AM T [facility] Monocyte 9.5 5.0 - 13.0 % 04/28/2025 5:23 AM T [facility] Eosinophil 0.0(L) 1.0 - 7.0 % 04/28/2025 5:23 AM T [facility] Basophil 0.4 0.0 - 1.0 % 04/28/2025 5:23 AM [facility] Immature Granulocyte ([place], Myelo, Promyelocyte) 1.9(H) 0.0 - 0.6 % 04/28/2025 5:23 AM EDT [facility] Absolute Neutrophil Count 8.29(H) 1.60 - 6.10 K/uL 04/28/2025 5:23 AM EDT [facility] Absolute Lymphocyte Count 1.51 1.20 - 3.70 K/uL 04/28/2025 5:23 AM EDT [facility] Absolute Monocyte Count 1.06(H) 0.20 - 0.80 K/uL 04/28/2025 5:23 AM EDT [facility] Absolute Eosinophil Count 0.00(L) 0.04 - 0.54 K/uL 04/28/2025 5:23 AM EDT [facility] Absolute Basophil Count 0.04 0.01 - 0.08 K/uL 04/28/2025 5:23 AM EDT [facility] Absolute Immature Granulocyte ([place], Myelo, Promyelocyte) 0.21(H) 0.00 - 0.09 K/uL 04/28/2025 5:23 AM EDT [facility] Blood PERIPHERAL BLOOD SPECIMEN / Unknown Venipuncture / Unknown 04/28/2025 4:56 AM EDT 04/28/2025 5:13 AM EDT us Mildred Srinivasan MD LAB BLOOD ORDERABLES Final Resu lt [facility] [address] [place] [address], * (ABNORMAL) Basic Metabolic Panel (04/28/2025 4:56 AM EDT) Sodium 137 135 - 147 mmol/L 04/28/2025 5:48 AM EDT [facility] Potassium 4.1 3.5 - 5.4 mmol/L 04/28/2025 5:48 AM EDT [facility] Chloride 101 96 - 108 mmol/L 04/28/2025 5:48 AM EDT [facility] Total CO2/Bicarbonat e 25 22 - 32 mmol/L 04/28/2025 5:48 AM EDT [facility] Anion Gap 11 10 - 18 mmol/L 04/28/2025 5:48 AM EDT [facility] BUN 30(H) 6 - 20 mg/dL 04/28/2025 5:48 AM EDT [facility] Creatinine, Blood 1.00 0.50 - 1.20 mg/dL 04/28/2025 5:48 AM EDT [facility] Glucose, Blood 119(H) 70 - 100 mg/dL 04/28/2025 5:48 AM EDT [facility] Calcium 9.3 8.4 - 10.3 mg/dL 04/28/2025 5:48 AM EDT [facility] Blood PERIPHERAL BLOOD SPECIMEN / Unknown Venipuncture / Unknown 04/28/2025 4:56 AM EDT 04/28/2025 5:14 AM EDT us Mildred Srinivasan MD LAB BLOOD ORDERABLES Final Resu lt [facility] [address] [place] [address], [place] * XR Abdomen 1 VW (04/27/2025 [...] - 10.00 K/uL 04/27/2025 1:33 PM EDT [facility] RBC 4.44(L) 4.60 - 6.10 M/uL 04/27/2025 1:33 PM EDT [facility] Hemoglobin 14.0 13.7 - 17.5 g/dL 04/27/2025 1:33 PM EDT [facility] Hematocrit 40.9 40.0 - 51.0 % 04/27/2025 1:33 PM EDT [facility] MCV 92 82 - 98 fL 04/27/2025 1:33 PM EDT [facility] MCH 31.5 26.0 - 32.0 pg 04/27/2025 1:33 PM EDT [facility] MCHC 34.2 32.0 - 37.0 g/dL 04/27/2025 1:33 PM EDT [facility] RDW 13.1 10.5 - 15.5 % 04/27/2025 1:33 PM EDT [facility] RDW-SD 43.5 35.1 - 46.3 fL 04/27/2025 1:33 PM EDT [facility] Platelet Count 332 150 - 400 K/uL 04/27/2025 1:33 PM EDT [facility] Nucleated RBC 0 <=0 #/100 WBC 04/27/2025 1:33 PM EDT [facility] Blood PERIPHERAL BLOOD SPECIMEN / Unknown Venipuncture / Unknown 04/27/2025 1:13 PM EDT 04/27/2025 1:29 PM EDT us Mildred Srinivasan MD LAB BLOOD ORDERABLES Final Resu lt [facility] [address] [place] [address], * (ABNORMAL) Comprehensive Metabolic Panel (04/27/2025 1:13 PM EDT) Sodium 136 135 - 147 mmol/L 04/27/2025 2:03 PM EDT [facility] Potassium 4.0 3.5 - 5.4 mmol/L 04/27/2025 2:03 PM EDT [facility] Chloride 99 96 - 108 mmol/L 04/27/2025 2:03 PM EDT [facility] Total CO2/Bicarbonate 24 22 - 32 mmol/L 04/27/2025 2:03 PM EDT [facility] Anion Gap 13 10 - 18 mmol/L 04/27/2025 2:03 PM EDT [facility] BUN 31(H) 6 - 20 mg/dL 04/27/2025 2:03 PM EDT [facility] Creatinine, Blood 0.90 0.50 - 1.20 mg/dL 04/27/2025 2:03 PM EDT [facility] Glucose, Blood 132(H) 70 - 100 mg/dL 04/27/2025 2:03 PM EDT [facility] Calcium 9.4 8.4 - 10.3 mg/dL 04/27/2025 2:03 PM EDT [facility] Total Protein 6.7 6.4 - 8.3 g/dL 04/27/2025 2:03 PM EDT [facility] Albumin, Blood 3.8 3.5 - 5.2 g/dL 04/27/2025 2:03 PM EDT [facility] Globulin Result 2.9 2.0 - 4.0 g/dL 04/27/2025 2:03 PM EDT [facility] AST (SGOT) 21 0 - 40 U/L 04/27/2025 2:03 PM EDT [facility] ALT (SGPT) <5 0 - 40 U/L 04/27/2025 2:03 PM EDT [facility] Alkaline Phosphatase 177(H) 40 - 130 U/L 04/27/2025 2:03 PM EDT [facility] Total Bilirubin 0.4 0.0 - 1.5 mg/dL 04/27/2025 2:03 PM EDT [facility] Blood PERIPHERAL BLOOD SPECIMEN / Unknown Venipuncture / Unknown 04/27/2025 1:13 PM EDT 04/27/2025 1:29 PM EDT Mildred Srinivasan MD LAB BLOOD ORDERABLES Final Resu lt [facility] [address] [place] [address], [place] * (ABNORMAL) POCT Glucose (04/27/2025 11:49 AM EDT) Glucose, POC 136(H) 70 - 100 mg/dL 04/27/2025 11:50 AM EDT [facility] Comment: @Serial Yjpbdd=[id number] @Librarian Helper YN=[id number] Blood 04/27/2025 11:4 9 AM EDT 04/27/2025 11:50 AM EDT Mildred Srinivasan MD POCT ORDERABLES - DEVICE Final Result [facility] [address] [place] [address], [place] * EEG 24 Hour Continuous Video EEG (LTM) (04/24/2025 9:35 AM EDT) Anatomical Region Laterality Modality EEG Impressions 04/25/2025 12:15 PM EDT Normal EEG in the awake, drowsy, and asleep states. Note on seizure risk / [id number] scores: Interpretation of scores the risk of [...] <5%. Assessment of the Validity of the 3ROIGL0A Score for Inpatient Seizure Risk Prediction. DEB [...] with rates of 80 to 100 bpm. [id number] score (on day 1 of EEG): 1 (suspected seizure) us Bonifacio Agudelo MD NEUROLOGY ORDERABLES Final Resul t * (ABNORMAL) CBC and Differential (04/24/2025 7:58 AM EDT) WBC 9.98 4.00 - 10.00 K/uL 04/24/2025 8:26 AM EDT [facility] RBC 3.91(L) 4.60 - 6.10 M/uL 04/24/2025 8:26 AM EDT [facility] Hemoglobin 12.4(L) 13.7 - 17.5 g/dL 04/24/2025 8:26 AM EDT [facility] Hematocrit 36.2(L) 40.0 - 51.0 % 04/24/2025 8:26 AM EDT [facility] MCV 93 82 - 98 fL 04/24/2025 8:26 AM EDT [facility] MCH 31.7 26.0 - 32.0 pg 04/24/2025 8:26 AM EDT [facility] MCHC 34.3 32.0 - 37.0 g/dL 04/24/2025 8:26 AM EDT [facility] RDW 13.2 10.5 - 15.5 % 04/24/2025 8:26 AM EDT [facility] RDW-SD 44.4 35.1 - 46.3 fL 04/24/2025 8:26 AM EDT [facility] Platelet Count 287 150 - 400 K/uL 04/24/2025 8:26 AM [facility] Nucleated RBC 0 <=0 #/100 WBC 04/24/2025 8:26 AM [facility] Neutrophil 75.0(H) 34.0 - 71.0 % 04/24/2025 8:26 AM [facility] Lymphocyte 14.5(L) 19.0 - 53.0 % 04/24/2025 8:26 AM [facility] Monocyte 8.2 5.0 - 13.0 % 04/24/2025 8:26 AM [facility] Eosinophil 0.0(L) 1.0 - 7.0 % 04/24/2025 8:26 AM [facility] Basophil 0.6 0.0 - 1.0 % 04/24/2025 8:26 AM [facility] Immature Granulocyte ([place], Myelo, Promyelocyte) 1.7(H) 0.0 - 0.6 % 04/24/2025 8:26 AM [facility] Absolute Neutrophil Count 7.48(H) 1.60 - 6.10 K/uL 04/24/2025 8:26 AM [facility] Absolute Lymphocyte Count 1.45 1.20 - 3.70 K/uL 04/24/2025 8:26 AM [facility] Absolute Monocyte Count 0.82(H) 0.20 - 0.80 K/uL 04/24/2025 8:26 AM [facility] Absolute Eosinophil Count 0.00(L) 0.04 - 0.54 K/uL 04/24/2025 8:26 AM [facility] Absolute Basophil Count 0.06 0.01 - 0.08 K/uL 04/24/2025 8:26 AM [facility] Absolute Immature Granulocyte ([place], Myelo, Promyelocyte) 0.17(H) 0.00 - 0.09 K/uL 04/24/2025 8:26 AM [facility] Blood PERIPHERAL BLOOD SPECIMEN / Unknown Venipuncture / Unknown 04/24/2025 7:58 AM EDT 04/24/2025 8:11 AM EDT us Bonifacio Agudelo MD LAB BLOOD ORDERABLES Final Resul t Performing Organization Address City/[facility]/ZIP Co de Phone Number [facility] [address] [place] [address], [place] * Phosphorus (04/24/2025 7:58 AM EDT) Phosphorus 3.3 2.7 - 4.5 mg/dL 04/24/2025 8:42 AM EDT [facility] Blood PERIPHERAL BLOOD SPECIMEN / Unknown Venipuncture / Unknown 04/24/2025 7:58 AM EDT 04/24/2025 8:11 AM EDT us Bonifacio Agudelo MD LAB BLOOD ORDERABLES Final Resul t Performing Organization Address [facility] de Phone Number [facility] [address] [place] [address], [place] * Magnesium (04/24/2025 7:58 AM EDT) Magnesium, Blood 2.2 1.6 - 2.6 mg/dL 04/24/2025 8:42 AM EDT [facility] Blood PERIPHERAL BLOOD SPECIMEN / Unknown Venipuncture / Unknown 04/24/2025 7:58 AM EDT 04/24/2025 8:11 AM EDT us Bonifacio Agudelo MD LAB BLOOD ORDERABLES Final Resul t Performing Organization Address City/[facility] Co de Phone Number [facility] [address] [place] [address], [place] * (ABNORMAL) Basic Metabolic Panel (04/24/2025 7:58 AM EDT) Sodium 141 135 - 147 mmol/L 04/24/2025 9:10 AM EDT [facility] Potassium 3.9 3.5 - 5.4 mmol/L 04/24/2025 9:10 AM EDT [facility] Chloride 104 96 - 108 mmol/L 04/24/2025 9:10 AM EDT [facility] Total CO2/Bicarbonat e 26 22 - 32 mmol/L 04/24/2025 9:10 AM EDT [facility] Anion Gap 11 10 - 18 mmol/L 04/24/2025 9:10 AM EDT [facility] BUN 35(H) 6 - 20 mg/dL 04/24/2025 9:10 AM EDT [facility] Creatinine, Blood 0.90 0.50 - 1.20 mg/dL 04/24/2025 9:10 AM EDT [facility] Glucose, Blood 154(H) 70 - 100 mg/dL 04/24/2025 9:10 AM EDT [facility] Calcium 9.2 8.4 - 10.3 mg/dL 04/24/2025 9:10 AM EDT [facility] Blood PERIPHERAL BLOOD SPECIMEN / Unknown Venipuncture / Unknown 04/24/2025 7:58 AM EDT 04/24/2025 8:11 AM EDT us Bonifacio Agudelo MD LAB BLOOD ORDERABLES Final Resul t [facility] [address] [place] [address], [place] * (ABNORMAL) POCT Glucose (04/23/2025 9:39 PM EDT) Glucose, POC 110(H) 70 - 100 mg/dL 04/23/2025 9:44 PM EDT [facility] Comment: @Serial [id number] @Librarian Helper VC=[id number] Blood 04/23/2025 9:39 PM EDT 04/23/2025 9:44 PM EDT us Bonifacio Agudelo MD POCT ORDERABLES - DEVICE Final R esult [facility] [address] [place] [address], [place] * Urine Micro Hold (04/23/2025 9:26 PM EDT) Micro Urine Reflex Hold Received 04/23/2025 11:01 PM EDT [facility] AP Urine MID-STREAM URINE SPECIMEN / Unknown Collection / Unknown 04/23/2025 9:26 PM EDT 04/23/2025 9:30 PM EDT us Bonfiacio Agudelo MD URINE ORDERABLES Final Result [facility] AP [address] [place] [address], [place] * (ABNORMAL) Urinalysis with Reflex to Urine Culture (04/23/2025 9:26 PM EDT) Color, Urine Yellow Yellow, Colorless, Straw 04/23/2025 9:42 PM EDT [facility] Clarity, Urine Clear Clear 04/23/2025 9:42 PM EDT [facility] pH, Urine 6.0 5.0 - 8.0 04/23/2025 9:42 PM EDT [facility] Protein, Urine Negative Negative 04/23/2025 9:42 PM EDT [facility] Glucose, Urine Negative Negative 04/23/2025 9:42 PM EDT [facility] Ketone, Urine Negative Negative 04/23/2025 9:42 PM EDT [facility] Bilirubin, Urine Negative Negative 04/23/2025 9:42 PM EDT [facility] Urobilinogen, Urine Normal 0.2-1.0 mg/dL 04/23/2025 9:42 PM EDT [facility] Blood, Urine Negative Negative 04/23/2025 9:42 PM EDT [facility] Leukocyte Esterase, Urine Negative Negative 04/23/2025 9:42 PM EDT [facility] Nitrite, Urine Negative Negative 04/23/2025 9:42 PM EDT [facility] Specific [place], Urine 1.016 1.001 - 1.050 04/23/2025 9:42 PM EDT [facility] White Blood Cells, Urine 0 0 - 5 /hpf 04/23/2025 9:42 PM EDT [facility] Red Blood Cells, Urine <1 0 - 2 /hpf 04/23/2025 9:42 PM EDT [facility] Mucous Threads Rare(A) None Seen 04/23/2025 9:42 PM EDT [facility] Urine MID-STREAM URINE SPECIMEN / Unknown Collection / Unknown 04/23/2025 9:26 PM EDT 04/23/2025 9:29 PM EDT us Bonifacio Agudelo MD URINE ORDERABLES Final Result [facility] [address] [place] [address], [place] * (ABNORMAL) Differential with WBC (04/23/2025 7:21 AM EDT) WBC 12.83(H) 4.00 - 10.00 K/uL 04/23/2025 9:42 AM EDT [facility] Neutrophil 78.7(H) 34.0 - 71.0 % 04/23/2025 9:42 AM EDT [facility] Lymphocyte 11.3(L) 19.0 - 53.0 % 04/23/2025 9:42 AM EDT [facility] Monocyte 7.8 5.0 - 13.0 % 04/23/2025 9:42 AM EDT [facility] Eosinophil 0.0(L) 1.0 - 7.0 % 04/23/2025 9:42 AM EDT [facility] Basophil 0.6 0.0 - 1.0 % 04/23/2025 9:42 AM EDT [facility] Nucleated RBC 0 <=0 #/100 WBC 04/23/2025 9:42 AM EDT [facility] Absolute Neutrophil Count 10.25(H) 1.60 - 6.10 K/uL 04/23/2025 9:42 AM EDT [facility] Absolute Lymphocyte Count 1.47 1.20 - 3.70 K/uL 04/23/2025 9:42 AM EDT [facility] Absolute Monocyte Count 1.02(H) 0.20 - 0.80 K/uL 04/23/2025 9:42 AM EDT [facility] Absolute Eosinophil Count 0.00(L) 0.04 - 0.54 K/uL 04/23/2025 9:42 AM EDT [facility] Absolute Basophil Count 0.08 0.01 - 0.08 K/uL 04/23/2025 9:42 AM EDT [facility] Immature Granulocyte ([place], Myelo, Promyelocyte) 1.6(H) 0.0 - 0.6 % 04/23/2025 9:42 AM EDT [facility] Absolute Immature Granulocyte ([place], Myelo, Promyelocyte) 0.21(H) 0.00 - 0.09 K/uL 04/23/2025 9:42 AM EDT [facility] Blood PERIPHERAL BLOOD SPECIMEN / Unknown Venipuncture / Unknown 04/23/2025 7:21 AM EDT 04/23/2025 7:29 AM EDT us Bonifacio Agudelo MD LAB BLOOD ORDERABLES Final Resul t [facility] [address] [place] [address], [place] * Phosphorus (04/23/2025 7:21 AM EDT) Phosphorus 3.3 2.7 - 4.5 mg/dL 04/23/2025 8:02 AM EDT [facility] Blood PERIPHERAL BLOOD SPECIMEN / Unknown Venipuncture / Unknown 04/23/2025 7:21 AM EDT 04/23/2025 7:29 AM EDT us Bonifacio Agudelo MD LAB BLOOD ORDERABLES Final Resul t [facility] [address] [place] [address], [place] * Magnesium (04/23/2025 7:21 AM EDT) Magnesium, Blood 2.1 1.6 - 2.6 mg/dL 04/23/2025 8:02 AM EDT [facility] Blood PERIPHERAL BLOOD SPECIMEN / Unknown Venipuncture / Unknown 04/23/2025 7:21 AM EDT 04/23/2025 7:29 AM EDT Bonifacio Agudelo MD LAB BLOOD ORDERABLES Final Resul t [facility] [address] [place] [address], [place] * (ABNORMAL) Basic Metabolic Panel (04/23/2025 7:21 AM EDT) Sodium 139 135 - 147 mmol/L 04/23/2025 8:02 AM EDT [facility] Potassium 3.9 3.5 - 5.4 mmol/L 04/23/2025 8:02 AM EDT [facility] Chloride 103 96 - 108 mmol/L 04/23/2025 8:02 AM EDT [facility] Total CO2/Bicarbonat e 23 22 - 32 mmol/L 04/23/2025 8:02 AM EDT [facility] Anion Gap 13 10 - 18 mmol/L 04/23/2025 8:02 AM EDT [facility] BUN 42(H) 6 - 20 mg/dL 04/23/2025 8:02 AM EDT [facility] Creatinine, Blood 0.90 0.50 - 1.20 mg/dL 04/23/2025 8:02 AM EDT [facility] Glucose, Blood 171(H) 70 - 100 mg/dL 04/23/2025 8:02 AM EDT [facility] Calcium 9.3 8.4 - 10.3 mg/dL 04/23/2025 8:02 AM EDT [facility] Estimated GFR(CKD-EPI) 94 mL/min/BSA 04/23/2025 8:02 AM EDT [facility] Blood PERIPHERAL BLOOD SPECIMEN / Unknown Venipuncture / Unknown 04/23/2025 7:21 AM EDT 04/23/2025 7:29 AM EDT Bonifacio Agudelo MD LAB BLOOD ORDERABLES Final Resul t [facility] [address] [place] [address], [place] * (ABNORMAL) CBC (04/23/2025 7:21 AM EDT) WBC 12.83(H) 4.00 - 10.00 K/uL 04/23/2025 8:01 AM EDT [facility] RBC 3.91(L) 4.60 - 6.10 M/uL 04/23/2025 8:01 AM EDT [facility] Hemoglobin 12.4(L) 13.7 - 17.5 g/dL 04/23/2025 8:01 AM EDT [facility] Hematocrit 37.7(L) 40.0 - 51.0 % 04/23/2025 8:01 AM EDT [facility] MCV 96 82 - 98 fL 04/23/2025 8:01 AM EDT [facility] MCH 31.7 26.0 - 32.0 pg 04/23/2025 8:01 AM EDT [facility] MCHC 32.9 32.0 - 37.0 g/dL 04/23/2025 8:01 AM EDT [facility] RDW 13.2 10.5 - 15.5 % 04/23/2025 8:01 AM EDT [facility] RDW-SD 46.8(H) 35.1 - 46.3 fL 04/23/2025 8:01 AM EDT [facility] Platelet Count 285 150 - 400 K/uL 04/23/2025 8:01 AM EDT [facility] Nucleated RBC 0 <=0 #/100 WBC 04/23/2025 8:01 AM EDT [facility] Blood PERIPHERAL BLOOD SPECIMEN / Unknown Venipuncture / Unknown 04/23/2025 7:21 AM EDT 04/23/2025 7:29 AM EDT us Bonifacio Agudelo MD LAB BLOOD ORDERABLES Final Resul t [facility] [address] [place] [address], [place] * EEG 24 Hour Continuous Video EEG (LTM) (04/23/2025 7:08 AM EDT) Anatomical Region Laterality Modality EEG Impressions 04/23/2025 2:52 PM EDT This continuous EEG showed a normal background in wakefulness and and sleep. There were no areas of significant focal slowing, there were no epileptiform features or electrographic seizures. Attending: Nir Ojeda MD Note on seizure risk / [id number] scores: Interpretation of scores the risk of [...] <5%. [Assessment of the Validity of the 6ICQLV3J Score for Inpatient Seizure Risk Prediction. DEB Neurol. 2020 Jan 20;77(4):500-507.] Narrative 04/23/2025 2:52 PM EDT Table formatting from the original result was not included. CLINICAL NEUROPHYSIOLOGY LAB Department of Neurology [address] [place] [address] ; [phone] Name: Carter Raymundo : 1955 Age: 69 [...] discharges. SEIZURES: There were no electrographic seizures. PROCESS DEVELOPER: Showed a generally regular rhythm, often with rates of 80 to 100 bpm. EVENTS: There were no pushbutton activations. [id number] score (Day1): 0 us Bonifacio Agudelo MD [...] Ojeda MD Note on seizure risk / [id number] scores: Interpretation of scores the risk of [...] <5%. [Assessment of the Validity of the 3OKFPW3L Score for Inpatient Seizure Risk Prediction. DEB Neurol. 2020 Jan 1;77(4):500-507.] Narrative 04/23/2025 1:07 PM EDT Table formatting from the original result was not included. CLINICAL NEUROPHYSIOLOGY LAB Department of Neurology [facility] [address]big[address] [address] ; [phone] Name: Carter Raymundo : 1955 Age: 69 [...] discharges. SEIZURES: There were no electrographic seizures. PROCESS DEVELOPER: Showed a generally regular rhythm, often with a rate of about 100 bpm. EVENTS: There were no pushbutton activations. [id number] score (Day1): 0 us Bonifacio Agudelo MD [...] on Apr 22 2025 03:07PM us Bonifacio Augdelo MD IMG DIAGNOSTIC IMAGING ORDERABLE S Final Result * Prolactin (04/22/2025 12:02 PM EDT) Pathologist [facility] Prolactin, Blood 14.0 4.0 - 15.0 ng/mL 04/22/2025 3:28 PM EDT [facility] Comment:Measured by Desiree El ecsys (ECLIA) version 2 which is largely unaffected by macroprolactin. Patient results determined by different manufacturers or methods may not be comparable. Blood PERIPHERAL BLOOD SPECIMEN / Unknown Venipuncture / Unknown 04/22/2025 12:02 PM EDT 04/22/2025 12:23 PM EDT us Bonifacio Agudelo MD LAB BLOOD ORDERABLES Final Resul t [facility] [address] [place] [address], * Clozapine Level, Blood (04/22/2025 12:02 PM EDT) Pathologist [facility] Norclozapine 140 25 - 400 mcg/L 04/27/2025 1:00 AM EDT [facility] Clozapine 386 mcg/L 04/27/2025 1:00 AM EDT [facility] Comment: The therapeutic response begins to appear at 100 mcg/L. Refractory schizophrenia appears to require a therapeutic concentration of at least 350 mcg/L (trough, at steady state). Toxic range: Greater than 900 mcg/L This test was developed and its analytical performance characteristics have been determined by [employer] [place], [place]. It has not been cleared or [...] ID: [id number] Name: ADRIANA CRESPO/SAM CRYSTAL Address: [id number] [place] [id number] Director: LEONEL RIUZ MD,PHD us Bonifacio Agudelo MD LAB BLOOD ORDERABLES Final Resul t ADRIANA FONTANA [place] [address] [place] [address], [place] [phone] * CT Head Without Contrast (04/22/2025 11:55 [...] PM EDT EXAMINATION: CT HEAD WO CONTRAST [id number] CT HEAD INDICATION: Altered Mental Status TECHNIQUE: [...] - 04/22/2025 EXAMINATION: CT HEAD WO CONTRAST [id number] CT HEAD INDICATION: Altered Mental Status TECHNIQUE: [...] Heart Rate 119 BPM EKG BUR MUSE VT Interval 144 ms EKG BUR MUSE QRSD Interval 96 ms EKG BUR MUSE QT Interval 362 ms EKG BUR MUSE QTC Interval 509 ms EKG BUR MUSE P [place] 58 degrees EKG BUR MUSE R [place] -36 degrees EKG BUR MUSE T Wave [place] 72 degrees EKG BUR MUSE 04/22/2025 11:2 [...] ECG ORDERABLES Final Result EKG KATH MUSE [address] [place] [id number] * (ABNORMAL) Hepatic Function Panel (04/22/2025 11:21 AM EDT) Total Protein 6.7 6.4 - 8.3 g/dL 04/22/2025 12:11 PM EDT [facility] Albumin, Blood 3.7 3.5 - 5.2 g/dL 04/22/2025 12:11 PM EDT [facility] Globulin Result 3.0 2.0 - 4.0 g/dL 04/22/2025 12:11 PM EDT [facility] Total Bilirubin 0.3 0.0 - 1.5 mg/dL 04/22/2025 12:11 PM EDT [facility] Direct Bilirubin 0.1 0.0 - 0.3 mg/dL 04/22/2025 12:11 PM EDT [facility] Alkaline Phosphatase 161(H) 40 - 130 U/L 04/22/2025 12:11 PM EDT [facility] AST (SGOT) 17 0 - 40 U/L 04/22/2025 12:11 PM EDT [facility] ALT (SGPT) <5 0 - 40 U/L 04/22/2025 12:11 PM EDT [facility] Blood PERIPHERAL BLOOD SPECIMEN / Unknown Venipuncture / Unknown 04/22/2025 11:21 AM EDT 04/22/2025 11:25 AM EDT us Bonifacio Agudelo MD LAB BLOOD ORDERABLES Final Resul t Performing Organization Address City/[facility]/ZIP Co de Phone Number [facility] [address] [place] [address], [place] * (ABNORMAL) CK (Creatine Kinase) (04/22/2025 11:21 AM EDT) Creatine Kinase Total (CK) 26(L) 47 - 322 U/L 04/22/2025 12:11 PM EDT [facility] Blood PERIPHERAL BLOOD SPECIMEN / Unknown Venipuncture / Unknown 04/22/2025 11:21 AM EDT 04/22/2025 11:25 AM EDT us Bonifacio Agudelo MD LAB BLOOD ORDERABLES Final Resul t Performing Organization Address City/[facility]/ZIP Co de Phone Number [facility] [address] [place] [address], [place] * Lactic Acid (04/22/2025 11:21 AM EDT) Lactic Acid 2.0 0.5 - 2.0 mmol/L 04/22/2025 11:42 AM EDT [facility] Blood Venipuncture / Unknown 04/22/2025 11:21 AM EDT 04/22/2025 11:24 AM EDT us Bonifacio Agudelo MD LAB BLOOD ORDERABLES Final Resul t [facility] [address] [place] [address], [place] * (ABNORMAL) Blood Gas, Venous (04/22/2025 11:21 AM EDT) pH, Venous 7.48(H) 7.35 - 7.45 04/22/2025 11:26 AM EDT [facility] pCO2, Venous 35 35 - 45 mmHg 04/22/2025 11:26 AM EDT [facility] pO2, Venous 203(H) 80 - 105 mmHg 04/22/2025 11:26 AM EDT [facility] HCO3, Venous 26 21 - 30 mmol/L 04/22/20 11:26 AM EDT [facility] % O2Hb, Venous 97 95 - 99 % 04/22/2025 11:26 AM EDT [facility] Base Excess, Venous 3.1 No Established Reference Range mmol/L 04/22/2025 11:26 AM EDT [facility] Carboxyhemogl obin, VBG 1.9(H) 0.5 - 1.5 % 04/22/2025 11:26 AM EDT [facility] Methemoglobin , VBG 0.4 0.2 - 0.6 % 04/22/2025 11:26 AM EDT [facility] Blood Venipuncture / Unknown 04/22/2025 11:21 AM EDT 04/22/2025 11:24 AM EDT us Bonifacio Agudelo MD LAB BLOOD ORDERABLES Final Resul t [facility] [address] [place] [address], [place] * (ABNORMAL) CBC (04/22/2025 11:21 AM EDT) WBC 10.35(H) 4.00 - 10.00 K/uL 04/22/2025 11:32 AM EDT [facility] RBC 4.49(L) 4.60 - 6.10 M/uL 04/22/2025 11:32 AM EDT [facility] Hemoglobin 14.0 13.7 - 17.5 g/dL 04/22/2025 11:32 AM EDT [facility] Hematocrit 41.4 40.0 - 51.0 % 04/22/2025 11:32 AM EDT [facility] MCV 92 82 - 98 fL 04/22/2025 11:32 AM EDT [facility] MCH 31.2 26.0 - 32.0 pg 04/22/2025 11:32 AM EDT [facility] MCHC 33.8 32.0 - 37.0 g/dL 04/22/2025 11:32 AM EDT [facility] RDW 13.2 10.5 - 15.5 % 04/22/2025 11:32 AM EDT [facility] RDW-SD 45.0 35.1 - 46.3 fL 04/22/2025 11:32 AM EDT [facility] Platelet Count 290 150 - 400 K/uL 04/22/2025 11:32 AM EDT [facility] Nucleated RBC 0 <=0 #/100 WBC 04/22/2025 11:32 AM EDT [facility] Blood PERIPHERAL BLOOD SPECIMEN / Unknown Venipuncture / Unknown 04/22/2025 11:21 AM EDT 04/22/2025 11:27 AM EDT us Bonifacio Agudelo MD LAB BLOOD ORDERABLES Final Resul t [facility] [address] [place] [address], * (ABNORMAL) Basic Metabolic Panel (04/22/2025 11:21 AM EDT) Sodium 144 135 - 147 mmol/L 04/22/2025 12:11 PM EDT [facility] Potassium 4.4 3.5 - 5.4 mmol/L 04/22/2025 12:11 PM EDT [facility] Chloride 107 96 - 108 mmol/L 04/22/2025 12:11 PM EDT [facility] Total CO2/Bicarbonat e 24 22 - 32 mmol/L 04/22/2025 12:11 PM EDT [facility] Anion Gap 13 10 - 18 mmol/L 04/22/2025 12:11 PM EDT [facility] BUN 35(H) 6 - 20 mg/dL 04/22/2025 12:11 PM EDT [facility] Creatinine, Blood 1.00 0.50 - 1.20 mg/dL 04/22/2025 12:11 PM EDT [facility] Glucose, Blood 127(H) 70 - 100 mg/dL 04/22/2025 12:11 PM EDT [facility] Calcium 9.6 8.4 - 10.3 mg/dL 04/22/2025 12:11 PM EDT [facility] Blood PERIPHERAL BLOOD SPECIMEN / Unknown Venipuncture / Unknown 04/22/2025 11:21 AM EDT 04/22/2025 11:25 AM EDT us Bonifacio Agudelo MD LAB BLOOD ORDERABLES Final Resul t Performing Organization Address City/[facility]/ZIP Co de Phone Number [facility] [address] [place] [address], [place] * (ABNORMAL) POCT Glucose (04/22/2025 11:07 AM EDT) Glucose, POC 116(H) 70 - 100 mg/dL 04/22/2025 4:17 PM EDT [facility] Comment: @Serial Kowfwe=[id number] @Librarian Helper [id number] Blood 04/22/2025 11:0 7 AM EDT 04/22/2025 4:17 PM EDT us Bonifacio Agudelo MD POCT ORDERABLES - DEVICE Final R esult [facility] [address] [place] [address], [place] * (ABNORMAL) CBC and Differential (04/22/2025 6:56 AM EDT) WBC 9.15 4.00 - 10.00 K/uL 04/22/2025 7:41 AM EDT [facility] RBC 4.17(L) 4.60 - 6.10 M/uL 04/22/2025 7:41 AM [facility] Hemoglobin 13.0(L) 13.7 - 17.5 g/dL 04/22/2025 7:41 AM [facility] Hematocrit 38.9(L) 40.0 - 51.0 % 04/22/2025 7:41 AM [facility] MCV 93 82 - 98 fL 04/22/2025 7:41 AM [facility] MCH 31.2 26.0 - 32.0 pg 04/22/2025 7:41 AM [facility] MCHC 33.4 32.0 - 37.0 g/dL 04/22/2025 7:41 AM [facility] RDW 13.2 10.5 - 15.5 % 04/22/2025 7:41 AM [facility] RDW-SD 45.0 35.1 - 46.3 fL 04/22/2025 7:41 AM [facility] Platelet Count 277 150 - 400 K/uL 04/22/2025 7:41 AM [facility] Nucleated RBC 0 <=0 #/100 WBC 04/22/2025 7:41 AM [facility] Neutrophil 74.7(H) 34.0 - 71.0 % 04/22/2025 7:41 AM [facility] Lymphocyte 15.1(L) 19.0 - 53.0 % 04/22/2025 7:41 AM [facility] Monocyte 8.7 5.0 - 13.0 % 04/22/2025 7:41 AM [facility] Eosinophil 0.0(L) 1.0 - 7.0 % 04/22/2025 7:41 AM [facility] Basophil 0.4 0.0 - 1.0 % 04/22/2025 7:41 AM [facility] Immature Granulocyte ([place], Myelo, Promyelocyte) 1.1(H) 0.0 - 0.6 % 04/22/2025 7:41 AM [facility] Absolute Neutrophil Count 6.83(H) 1.60 - 6.10 K/uL 04/22/2025 7:41 AM EDT [facility] Absolute Lymphocyte Count 1.38 1.20 - 3.70 K/uL 04/22/2025 7:41 AM EDT [facility] Absolute Monocyte Count 0.80 0.20 - 0.80 K/uL 04/22/2025 7:41 AM EDT [facility] Absolute Eosinophil Count 0.00(L) 0.04 - 0.54 K/uL 04/22/2025 7:41 AM EDT [facility] Absolute Basophil Count 0.04 0.01 - 0.08 K/uL 04/22/2025 7:41 AM EDT [facility] Absolute Immature Granulocyte ([place], Myelo, Promyelocyte) 0.10(H) 0.00 - 0.09 K/uL 04/22/2025 7:41 AM EDT [facility] Blood PERIPHERAL BLOOD SPECIMEN / Unknown Venipuncture / Unknown 04/22/2025 6:56 AM EDT 04/22/2025 7:12 AM EDT Bonifacio Agudelo MD LAB BLOOD ORDERABLES Final Resul t Performing Organization Address City/[facility]/ZIP Co de Phone Number [facility] [address] [place] [address], [place] * Magnesium (04/20/2025 6:54 AM EDT) Magnesium, Blood 2.1 1.6 - 2.6 mg/dL 04/20/2025 7:46 AM EDT [facility] Blood PERIPHERAL BLOOD SPECIMEN / Unknown Venipuncture / Unknown 04/20/2025 6:54 AM EDT 04/20/2025 7:10 AM EDT Chuy Hernandez MD LAB BLOOD ORDERABLES Final R esult [facility] [address] [place] [address], [place] * Phosphorus (04/20/2025 6:54 AM EDT) Phosphorus 4.0 2.7 - 4.5 mg/dL 04/20/2025 7:46 AM EDT [facility] Blood PERIPHERAL BLOOD SPECIMEN / Unknown Venipuncture / Unknown 04/20/2025 6:54 AM EDT 04/20/2025 7:10 AM EDT us Chuy Hernandez MD LAB BLOOD ORDERABLES Final R esult [facility] [address] [place] [address], [place] * (ABNORMAL) Basic Metabolic Panel (04/20/2025 6:54 AM EDT) [facility] Sodium 141 135 - 147 mmol/L 04/20/2025 7:47 AM EDT [facility] Potassium 3.7 3.5 - 5.4 mmol/L 04/20/2025 7:47 AM EDT [facility] Chloride 107 96 - 108 mmol/L 04/20/2025 7:47 AM EDT [facility] Total CO2/Bicarbonat e 24 22 - 32 mmol/L 04/20/2025 7:47 AM EDT [facility] Anion Gap 10 10 - 18 mmol/L 04/20/2025 7:47 AM EDT [facility] BUN 31(H) 6 - 20 mg/dL 04/20/2025 7:47 AM EDT [facility] Creatinine, Blood 1.00 0.50 - 1.20 mg/dL 04/20/2025 7:47 AM EDT [facility] Glucose, Blood 134(H) 70 - 100 mg/dL 04/20/2025 7:47 AM EDT [facility] Calcium 9.1 8.4 - 10.3 mg/dL 04/20/2025 7:47 AM EDT [facility] Blood PERIPHERAL BLOOD SPECIMEN / Unknown Venipuncture / Unknown 04/20/2025 6:54 AM EDT 04/20/2025 7:10 AM EDT us Chuy Hernandez MD LAB BLOOD ORDERABLES Final R esult [facility] [address] [place] [address], [place] * (ABNORMAL) CBC (04/20/2025 6:54 AM EDT) WBC 9.24 4.00 - 10.00 K/uL 04/20/2025 7:20 AM EDT [facility] RBC 3.96(L) 4.60 - 6.10 M/uL 04/20/2025 7:20 AM EDT [facility] Hemoglobin 12.4(L) 13.7 - 17.5 g/dL 04/20/2025 7:20 AM EDT [facility] Hematocrit 36.6(L) 40.0 - 51.0 % 04/20/2025 7:20 AM EDT [facility] MCV 92 82 - 98 fL 04/20/2025 7:20 AM EDT [facility] MCH 31.3 26.0 - 32.0 pg 04/20/2025 7:20 AM EDT [facility] MCHC 33.9 32.0 - 37.0 g/dL 04/20/2025 7:20 AM EDT [facility] RDW 13.5 10.5 - 15.5 % 04/20/2025 7:20 AM EDT [facility] RDW-SD 45.9 35.1 - 46.3 fL 04/20/2025 7:20 AM EDT [facility] Platelet Count 267 150 - 400 K/uL 04/20/2025 7:20 AM EDT [facility] Nucleated RBC 0 <=0 #/100 WBC 04/20/2025 7:20 AM EDT [facility] Blood PERIPHERAL BLOOD SPECIMEN / Unknown Venipuncture / Unknown 04/20/2025 6:54 AM EDT 04/20/2025 7:09 AM EDT us Chuy Hernandez MD LAB BLOOD ORDERABLES Final R esult [facility] [address] [place] [address], [place] * XR Abdomen Portable (04/19/2025 6:48 [...] has gastrostomy tube placed by surgery in [facility] in December of this year. Patient pulled [...] supine. A pre-procedure time-out was performed per [facility] protocol. The upper abdomen and tube site [...] rescue with placement of a new 16 [facility] (3 cm stoma length) gastrostomy tube. Recommend [...] draped in a sterile fashion. A 12 [facility] Maharaj was identified in the gastrostomy tract. The balloon of the Maharaj was deflated. A stiff Glidewire was advanced through the Maharaj catheter into the stomach. The Maharaj was removed with gentle traction. A 16 [facility] low- profile 3 cm stoma gastrostomy tube was advanced over the stiff Glidewire and into the stomach. The balloon was inflated with sterile water. The gastrostomy tube was aspirated revealing gastric contents. The gastrostomy tube was then flushed sterile water. Sterile dressings were applied. Patient tolerated the procedure well. No immediate postprocedural complications. COMPARISON: None available. FINDINGS: Existing gastrostomy tract with 12 [facility] Maharaj. Placement of new 16 [facility] 3 cm low-profile gastrostomy tube with aspiration [...] draped in a sterile fashion. A 12 [facility] Maharaj was identifiedin the gastrostomy tract. The balloon of the Maharaj was deflated. A stiff Glidewire was advanced through the Foleycatheter into the stomach. The Maharaj was removed with gentle traction. A16 [facility] low-profile 3 cm stoma gastrostomy tube was advanced over thestiff Glidewire and into the stomach. The balloon was inflated with sterile water. The gastrostomy tubewas aspirated revealing gastric contents. The gastrostomy tube was thenflushed sterile water. Sterile dressings were applied. Patient tolerated the procedure well. No immediate postproceduralcomplications. COMPARISON: None available. FINDINGS: Existing gastrostomy tract with [address]. Placement of new 16 [address] 3 cm low-profile gastrostomy tube withaspiration of [...] - 2.6 mg/dL 04/19/2025 7:06 AM EDT [facility] Blood PERIPHERAL BLOOD SPECIMEN / Unknown Venipuncture / Unknown 04/19/2025 6:10 AM EDT 04/19/2025 6:36 AM EDT us Chuy Hernandez MD LAB BLOOD ORDERABLES Final R esult [facility] [address] [place] [address], [place] * Phosphorus (04/19/2025 6:10 AM EDT) Phosphorus 2.9 2.7 - 4.5 mg/dL 04/19/2025 7:06 AM EDT [facility] Blood PERIPHERAL BLOOD SPECIMEN / Unknown Venipuncture / Unknown 04/19/2025 6:10 AM EDT 04/19/2025 6:36 AM EDT Chuy Hernandez MD LAB BLOOD ORDERABLES [facility] [address] [place] [address], [place] * (ABNORMAL) Basic Metabolic Panel (04/19/2025 6:10 AM EDT) Sodium 140 135 - 147 mmol/L 04/19/2025 7:06 AM EDT [facility] Potassium 3.4(L) 3.5 - 5.4 mmol/L 04/19/2025 7:06 AM EDT [facility] Chloride 104 96 - 108 mmol/L 04/19/2025 7:06 AM EDT [facility] Total CO2/Bicarbonat e 26 22 - 32 mmol/L 04/19/2025 7:06 AM EDT [facility] Anion Gap 10 10 - 18 mmol/L 04/19/2025 7:06 AM EDT [facility] BUN 33(H) 6 - 20 mg/dL 04/19/2025 7:06 AM EDT [facility] Creatinine, Blood 1.10 0.50 - 1.20 mg/dL 04/19/2025 7:06 AM EDT [facility] Glucose, Blood 142(H) 70 - 100 mg/dL 04/19/2025 7:06 AM EDT [facility] Calcium 9.1 8.4 - 10.3 mg/dL 04/19/2025 7:06 AM EDT [facility] Blood PERIPHERAL BLOOD SPECIMEN / Unknown Venipuncture / Unknown 04/19/2025 6:10 AM EDT 04/19/2025 6:36 AM EDT us Chuy Hernandez MD LAB BLOOD ORDERABLES Final R esult [facility] [address] [place] [address], * (ABNORMAL) CBC (04/19/2025 6:10 AM EDT) WBC 9.06 4.00 - 10.00 K/uL 04/19/2025 6:43 AM EDT [facility] RBC 3.95(L) 4.60 - 6.10 M/uL 04/19/2025 6:43 AM EDT [facility] Hemoglobin 12.5(L) 13.7 - 17.5 g/dL 04/19/2025 6:43 AM EDT [facility] Hematocrit 36.6(L) 40.0 - 51.0 % 04/19/2025 6:43 AM EDT [facility] MCV 93 82 - 98 fL 04/19/2025 6:43 AM EDT [facility] MCH 31.6 26.0 - 32.0 pg 04/19/2025 6:43 AM EDT [facility] MCHC 34.2 32.0 - 37.0 g/dL 04/19/2025 6:43 AM EDT [facility] RDW 13.4 10.5 - 15.5 % 04/19/2025 6:43 AM EDT [facility] RDW-SD 46.1 35.1 - 46.3 fL 04/19/2025 6:43 AM EDT [facility] Platelet Count 252 150 - 400 K/uL 04/19/2025 6:43 AM EDT [facility] Nucleated RBC 0 <=0 #/100 WBC 04/19/2025 6:43 AM EDT [facility] Blood PERIPHERAL BLOOD SPECIMEN / Unknown Venipuncture / Unknown 04/19/2025 6:10 AM EDT 04/19/2025 6:33 AM EDT Chuy Hernandez MD LAB BLOOD ORDERABLES Final R esult Performing Organization Address City/[facility]/ZIP Co de Phone Number [facility] [address] [place] [address], [place] * Magnesium (04/18/2025 7:10 AM EDT) Magnesium, Blood 2.0 1.6 - 2.6 mg/dL 04/18/2025 7:56 AM EDT [facility] Blood PERIPHERAL BLOOD SPECIMEN / Unknown Venipuncture / Unknown 04/18/2025 7:10 AM EDT 04/18/2025 7:22 AM EDT Chuy Hernandez MD LAB BLOOD ORDERABLES Final R esult Performing Organization Address [facility]/ZIP Co de Phone Number [facility] [address] [place] [address], [place] * Phosphorus (04/18/2025 7:10 AM EDT) Phosphorus 3.7 2.7 - 4.5 mg/dL 04/18/2025 7:56 AM EDT [facility] Blood PERIPHERAL BLOOD SPECIMEN / Unknown Venipuncture / Unknown 04/18/2025 7:10 AM EDT 04/18/2025 7:22 AM EDT Chuy Hernandez MD LAB BLOOD ORDERABLES Final R esult Performing Organization Address City/[facility]/ZIP Co de Phone Number [facility] [address] [place] [address], [place] * (ABNORMAL) Basic Metabolic Panel (04/18/2025 7:10 AM EDT) Sodium 141 135 - 147 mmol/L 04/18/2025 7:56 AM EDT [facility] Potassium 3.6 3.5 - 5.4 mmol/L 04/18/2025 7:56 AM EDT [facility] Chloride 106 96 - 108 mmol/L 04/18/2025 7:56 AM EDT [facility] Total CO2/Bicarbonat e 22 22 - 32 mmol/L 04/18/2025 7:56 AM EDT [facility] Anion Gap 13 10 - 18 mmol/L 04/18/2025 7:56 AM EDT [facility] BUN 34(H) 6 - 20 mg/dL 04/18/2025 7:56 AM EDT [facility] Creatinine, Blood 1.10 0.50 - 1.20 mg/dL 04/18/2025 7:56 AM EDT [facility] Glucose, Blood 97 70 - 100 mg/dL 04/18/2025 7:56 AM EDT [facility] Calcium 9.3 8.4 - 10.3 mg/dL 04/18/2025 7:56 AM EDT [facility] Blood PERIPHERAL BLOOD SPECIMEN / Unknown Venipuncture / Unknown 04/18/2025 7:10 AM EDT 04/18/2025 7:22 AM EDT us Chuy Hernandez MD LAB BLOOD ORDERABLES Final R esult [facility] [address] [place] [address], * (ABNORMAL) CBC (04/18/2025 7:10 AM EDT) WBC 9.19 4.00 - 10.00 K/uL 04/18/2025 7:38 AM EDT [facility] RBC 4.04(L) 4.60 - 6.10 M/uL 04/18/2025 7:38 AM EDT [facility] Hemoglobin 12.6(L) 13.7 - 17.5 g/dL 04/18/2025 7:38 AM EDT [facility] Hematocrit 37.0(L) 40.0 - 51.0 % 04/18/2025 7:38 AM EDT [facility] MCV 92 82 - 98 fL 04/18/2025 7:38 AM EDT [facility] MCH 31.2 26.0 - 32.0 pg 04/18/2025 7:38 AM EDT [facility] MCHC 34.1 32.0 - 37.0 g/dL 04/18/2025 7:38 AM EDT [facility] RDW 13.2 10.5 - 15.5 % 04/18/2025 7:38 AM EDT [facility] RDW-SD 43.9 35.1 - 46.3 fL 04/18/2025 7:38 AM EDT [facility] Platelet Count 257 150 - 400 K/uL 04/18/2025 7:38 AM EDT [facility] Nucleated RBC 0 <=0 #/100 WBC 04/18/2025 7:38 AM EDT [facility] Blood PERIPHERAL BLOOD SPECIMEN / Unknown Venipuncture / Unknown 04/18/2025 7:10 AM EDT 04/18/2025 7:19 AM EDT Chuy Hernandez MD LAB BLOOD ORDERABLES Final R esult [facility] [address] [place] [address], [place] * (ABNORMAL) C-Reactive Protein (04/17/2025 7:40 AM EDT) [facility] C-Reactive Protein (CRP) 7.5(H) 0.0 - 5.0 mg/L 04/17/2025 1:38 PM EDT [facility] Blood PERIPHERAL BLOOD SPECIMEN / Unknown Venipuncture / Unknown 04/17/2025 7:40 AM EDT 04/17/2025 7:53 AM EDT Bonifacio Agudelo MD LAB BLOOD ORDERABLES Final Resul t [facility] [address] [place] [address], [place] * Vitamin D, 25-OH (04/17/2025 7:40 AM EDT) Pathologist [facility] `Vitamin D 25-OH Level 38 30 - 60 ng/mL 04/17/2025 3:33 PM EDT [facility] Blood PERIPHERAL BLOOD SPECIMEN / Unknown Venipuncture / Unknown 04/17/2025 7:40 AM EDT 04/17/2025 7:53 AM EDT Bonifacio Agudelo MD LAB BLOOD ORDERABLES Final Resul t [facility] [address] [place] [address], [place] * Magnesium (04/17/2025 7:40 AM EDT) Magnesium, Blood 2.1 1.6 - 2.6 mg/dL 04/17/2025 8:27 AM EDT [facility] Blood PERIPHERAL BLOOD SPECIMEN / Unknown Venipuncture / Unknown 04/17/2025 7:40 AM EDT 04/17/2025 7:53 AM EDT Chuy Hernandez MD LAB BLOOD ORDERABLES Final R esult [facility] [address] [place] [address], [place] * Phosphorus (04/17/2025 7:40 AM EDT) Phosphorus 3.8 2.7 - 4.5 mg/dL 04/17/2025 8:27 AM EDT [facility] Blood PERIPHERAL BLOOD SPECIMEN / Unknown Venipuncture / Unknown 04/17/2025 7:40 AM EDT 04/17/2025 7:53 AM EDT Chuy Hernandez MD LAB BLOOD ORDERABLES Final R esult [facility] [address] [place] [address], [place] * (ABNORMAL) Basic Metabolic Panel (04/17/2025 7:40 AM EDT) Sodium 143 135 - 147 mmol/L 04/17/2025 8:27 AM EDT [facility] Potassium 4.0 3.5 - 5.4 mmol/L 04/17/2025 8:27 AM EDT [facility] Chloride 107 96 - 108 mmol/L 04/17/2025 8:27 AM EDT [facility] Total CO2/Bicarbonat e 25 22 - 32 mmol/L 04/17/2025 8:27 AM EDT [facility] Anion Gap 11 10 - 18 mmol/L 04/17/2025 8:27 AM EDT [facility] BUN 27(H) 6 - 20 mg/dL 04/17/2025 8:27 AM EDT [facility] Creatinine, Blood 1.10 0.50 - 1.20 mg/dL 04/17/2025 8:27 AM EDT [facility] Glucose, Blood 86 70 - 100 mg/dL 04/17/2025 8:27 AM EDT [facility] Calcium 9.2 8.4 - 10.3 mg/dL 04/17/2025 8:27 AM EDT [facility] Blood PERIPHERAL BLOOD SPECIMEN / Unknown Venipuncture / Unknown 04/17/2025 7:40 AM EDT 04/17/2025 7:53 AM EDT us Chuy Hernandez MD LAB BLOOD ORDERABLES Final R esult [facility] [address] [place] [address], [place] * (ABNORMAL) CBC (04/17/2025 7:40 AM EDT) WBC 9.29 4.00 - 10.00 K/uL 04/17/2025 8:06 AM EDT [facility] RBC 3.84(L) 4.60 - 6.10 M/uL 04/17/2025 8:06 AM EDT [facility] Hemoglobin 12.1(L) 13.7 - 17.5 g/dL 04/17/2025 8:06 AM EDT [facility] Hematocrit 36.3(L) 40.0 - 51.0 % 04/17/2025 8:06 AM EDT [facility] MCV 95 82 - 98 fL 04/17/2025 8:06 AM EDT [facility] MCH 31.5 26.0 - 32.0 pg 04/17/2025 8:06 AM EDT [facility] MCHC 33.3 32.0 - 37.0 g/dL 04/17/2025 8:06 AM EDT [facility] RDW 13.9 10.5 - 15.5 % 04/17/2025 8:06 AM EDT [facility] RDW-SD 47.5(H) 35.1 - 46.3 fL 04/17/2025 8:06 AM EDT [facility] Platelet Count 229 150 - 400 K/uL 04/17/2025 8:06 AM EDT [facility] Nucleated RBC 0 <=0 #/100 WBC 04/17/2025 8:06 AM EDT [facility] Blood PERIPHERAL BLOOD SPECIMEN / Unknown Venipuncture / Unknown 04/17/2025 7:40 AM EDT 04/17/2025 7:53 AM EDT us Chuy Hernandez MD LAB BLOOD ORDERABLES Final R esult [facility] [address] [place] [address], [place] * XR Chest 2 VW (04/16/2025 [...] SARS-CoV-2 Negative Negative 04/16/2025 10:05 AM EDT [facility] Influenza A Negative Not Detected by PCR 04/16/2025 10:05 AM EDT [facility] Influenza B Negative Not Detected by PCR 04/16/2025 10:05 AM EDT [facility] RSV by PCR Negative Not Detected by PCR 04/16/2025 10:05 AM EDT [facility] Respiratory SWAB OF INTERNAL NOSE / Unknown Collection / Unknown 04/16/2025 9:24 AM EDT 04/16/2025 9:25 AM EDT Narrative [facility] - 04/16/2025 10:05 AM EDT Test performed by [employer] real-time PCR. us Lela Martinez MD BODY FLUIDS AND STOOLS FAIZAN DURANT Final Result [facility] [address] [place] [address], * Drug Screen, Urine (04/16/2025 6:54 AM EDT) Amphetamines Screen, Urine Presumptive Negative Presumptive Negative 04/16/2025 7:58 AM EDT [facility] Comment:[facility] amphetamine cu t-off is 1000 ng/mL. Barbiturates Screen, Urine Presumptive Negative Presumptive Negative 04/16/2025 7:58 AM EDT [facility] Comment:[facility] Barbiturate cu t-off of 200 ng/mL. Benzodiazepine Screen, Urine Presumptive Negative Presumptive Negative 04/16/2025 7:58 AM EDT [facility] Comment: [facility] Benzodiazepine cut-off is 300 ng/mL BENZODIAZEPINE IMMUNOASSAY SCREEN DOES NOT DETECT SOME DRUGS, INCLUDING LORAZEPAM, CLONAZEPAM, AND FLUNITRAZEPAM Cannabinoids Screen, Urine Presumptive Negative Presumptive Negative 04/16/2025 7:58 AM EDT [facility] Comment:[facility] Cannabinoids c ut-off is 50 ng/mL. Cocaine Metabolite Screen, Urine Presumptive Negative Presumptive Negative 04/16/2025 7:58 AM EDT [facility] Comment:[facility] Cocaine cut-of f is 300 ng/mL. Fentanyl Screen, Urine Presumptive Negative Presumptive Negative 04/16/2025 7:58 AM EDT [facility] Comment: [facility] Fentanyl cut-off 5.0 ng/mL. FENTANYL ASSAY DETECTS FENTANYL AND NORFENTANYL. FALSE POSITIVE RENTANYL RESULTS MAY OCCUR IN PATIENTS TAKING RISPERIDONE, TRAZADONE, AND LABETALOL. Methadone Screen, Urine Presumptive Negative Presumptive Negative 04/16/2025 7:58 AM EDT [facility] Comment: [facility] Methadone cut-off is 300 ng/mL. METHADONE ASSAY DETECTS METHADONE (NOT OTHER OPIATES/OPIOIDS; QUETIAPINE(SEROQUEL) MAY CAUSE A FALSE POSITIVE RESULT. Opiates Screen, Urine Presumptive Negative Presumptive Negative 04/16/2025 7:58 AM EDT [facility] Comment: [facility] Opiate cut-off is 300 ng/mL. OPIATE ASSAY DOES NOT RELIABLY DETECT SYNTHETIC OPIOIDS;SUCH METHADONE, OXYCODONE, FENTANYL, BUPRENORPHINE, TRAMADOL,;NALOXONE, MEPERIDINE. SEE ONLINE LAB MANUAL FOR DETAILS Oxycodone Screen, Urine Presumptive Negative Presumptive Negative 04/16/2025 7:58 AM EDT [facility] Comment:[facility] Oxycodone cut- off is 100 ng/mL. Urine URINE SPECIMEN / Unknown Collection / Unknown 04/16/2025 6:54 AM EDT 04/16/2025 7:17 AM EDT us Dane Ayala MD URINE ORDERABLES Fin al Result [facility] [address] [place] [address], [place] * Urine Micro Hold (04/16/2025 6:54 AM EDT) Micro Urine Reflex Hold Received 04/16/2025 10:01 AM EDT [facility] AP Urine URINE SPECIMEN / Unknown Collection / Unknown 04/16/2025 6:54 AM EDT 04/16/2025 7:12 AM EDT us Dane Ayala MD URINE ORDERABLES Fin al Result Performing Organization Address City/[facility]/ZIP Co de Phone Number [facility] AP [address] [place] [address], [place] * (ABNORMAL) Urinalysis with Reflex to Urine Culture (04/16/2025 6:54 AM EDT) Color, Urine Straw Yellow, Colorless, Straw 04/16/2025 9:31 AM EDT [facility] Clarity, Urine Clear Clear 04/16/2025 9:31 AM EDT [facility] pH, Urine 7.5 5.0 - 8.0 04/16/2025 9:31 AM EDT [facility] Protein, Urine Negative Negative 04/16/2025 9:31 AM EDT [facility] Glucose, Urine Negative Negative 04/16/2025 9:31 AM EDT [facility] Ketone, Urine Negative Negative 04/16/2025 9:31 AM EDT [facility] Bilirubin, Urine Negative Negative 04/16/2025 9:31 AM EDT [facility] Urobilinogen, Urine Normal 0.2-1.0 mg/dL 04/16/2025 9:31 AM EDT [facility] Blood, Urine Negative Negative 04/16/2025 9:31 AM EDT [facility] Leukocyte Esterase, Urine Negative Negative 04/16/2025 9:31 AM EDT [facility] Nitrite, Urine Negative Negative 04/16/2025 9:31 AM EDT [facility] Specific [place], Urine 1.024 1.001 - 1.050 04/16/2025 9:31 AM EDT [facility] White Blood Cells, Urine <1 0 - 5 /hpf 04/16/2025 9:31 AM EDT [facility] Red Blood Cells, Urine 1 0 - 2 /hpf 04/16/2025 9:31 AM EDT [facility] Mucous Threads Rare(A) None Seen 04/16/2025 9:31 AM EDT [facility] Urine URINE SPECIMEN / Unknown Collection / Unknown 04/16/2025 6:54 AM EDT 04/16/2025 7:13 AM EDT us Dane Ayala MD URINE ORDERABLES Fin al Result Performing Organization Address City/[facility]/ZIP Co de Phone Number [facility] [address] [place] [address], [place] * CK (Creatine Kinase) (04/15/2025 11:33 PM EDT) Pathologist [facility] Creatine Kinase Total (CK) 50 47 - 322 U/L 04/16/2025 12:19 AM EDT [facility] Blood PERIPHERAL BLOOD SPECIMEN / Unknown Venipuncture / Unknown 04/15/2025 11:33 PM EDT 04/15/2025 11:38 PM EDT us Dane Ayala MD LAB BLOOD ORDERABLES Final Result Performing Organization Address City/[facility]/ZIP Co de Phone Number [facility] [address] [place] [address], [place] * (ABNORMAL) hs-Troponin T, 1hr (04/15/2025 11:33 PM EDT) Troponin T HS 83(H) <=19 ng/L 04/16/2025 12:19 AM EDT [facility] Comment: hs-cTnT<=19 ng/L in 99% of healthy individuals. hs-cTnT values of 30, 52, 100 and 1000 ng/L correspond to approximately CHARLIE Gen 4 of 0.01, 0.03, 0.1 and 1 ng/mL Blood PERIPHERAL BLOOD SPECIMEN / Unknown Venipuncture / Unknown 04/15/2025 11:33 PM EDT 04/15/2025 11:38 PM EDT us Dane Ayala MD LAB BLOOD ORDERABLES Final Result [facility] [address] [place] [address], [place] * Ammonia (04/15/2025 11:33 PM EDT) Ammonia umol/L 11 10 - 60 umol/L 04/16/2025 12:21 AM EDT [facility] Blood PERIPHERAL BLOOD SPECIMEN / Unknown Venipuncture / Unknown 04/15/2025 11:33 PM EDT 04/15/2025 11:37 PM EDT us Dane Ayala MD LAB BLOOD ORDERABLES Final Result Performing Organization Address City/[facility]/ZIP Co de Phone Number [facility] [address] [place] [address], [place] * Lactic Acid with 3 Hour Reflex (04/15/2025 11:33 PM EDT) Lactic Acid 0.9 0.5 - 2.0 mmol/L 04/15/2025 11:40 PM EDT [facility] Blood PERIPHERAL BLOOD SPECIMEN / Unknown Venipuncture / Unknown 04/15/2025 11:33 PM EDT 04/15/2025 11:36 PM EDT us Dane Ayala MD LAB BLOOD ORDERABLES Final Result Performing Organization Address City/[facility]/ZIP Co de Phone Number [facility] [address] [place] [address], [place] * BB Retype (04/15/2025 11:33 PM EDT) BB RETYPE Received 04/16/2025 8:01 AM EDT [facility] Blood Venipuncture / Unknown 04/15/2025 11:33 PM EDT 04/15/2025 11:48 PM EDT us Dane Ayala MD BLOOD BANK TEST ORDE BHARGAV Final Result [facility] [address] [place] [address], [place] * MRI Brain Without Contrast (04/15/2025 11:19 PM EDT) Anatomical Region Laterality Modality Head Magnetic Resonan ce 04/15/2025 11:4 7 PM EDT Impressions 04/16/2025 11:44 AM EDT No acute intracranial abnormality. Specifically, no acute or recent infarction. WET READ: WET READ:~No acute intracranial abnormality. Angel Luis Tompkins [phone] [id number]. BY ELECTRONICALLY SIGNING THIS REPORT, I THE ATTENDING PHYSICIAN ATTEST THAT I HAVE REVIEWED THE IMAGES FOR THE ABOVE PROCEDURE(S) AND AGREE WITH THE FINDINGS DOCUMENTED. MD Deny Riley MD, electronically signed on Apr 16 2025 11:44AM Narrative 04/16/2025 11:44 AM EDT EXAMINATION: MR BRAIN WO CONTRAST. [id number] MR HEAD. INDICATION: Stroke protocol. DR. DANE [...] - 04/16/2025 EXAMINATION: MR BRAIN WO CONTRAST. [id number] MR HEAD. INDICATION: Stroke protocol. DR. DANE [...] WET READ: WET READ:~No acute intracranial abnormality. [facility] [id number]. BY ELECTRONICALLY SIGNING THIS REPORT, I THE ATTENDING PHYSICIAN ATTESTTHAT I HAVE REVIEWED THE IMAGES FOR THE ABOVE PROCEDURE(S) AND AGREE WITHTHE FINDINGS DOCUMENTED. MD Deny Riley MD, electronically signed on Apr 16 2025 11:44AM us Dane Ayala MD [facility] MRI ORDERABLES F inal Result * (ABNORMAL) Toxicology Screen, Blood (04/15/2025 9:18 PM EDT) Acetaminophen Result,Blood <5 <5 =Not Detected ug/mL 04/15/2025 11:37 PM EDT [facility] Alcohol <10 <10 = Not Detected mg/dL 04/15/2025 11:37 PM EDT [facility] Salicylate Level, Blood <1(L) <4 = Not Detected mg/dL 04/15/2025 11:37 PM EDT [facility] Blood PERIPHERAL BLOOD SPECIMEN / Unknown Venipuncture / Unknown 04/15/2025 9:18 PM EDT 04/15/2025 10:29 PM EDT Dane Ayala MD LAB BLOOD ORDERABLES Final Result Performing Organization Address [facility] [facility] Co de Phone Number [facility] [address] [place] [address], [place] * (ABNORMAL) hs-Troponin T (reflex 1hr, 3hr) (04/15/2025 9:18 PM EDT) Troponin T HS 85(H) <=19 ng/L 04/15/2025 10:59 PM EDT [facility] Comment: hs-cTnT<=19 ng/L in 99% of healthy individuals. hs-cTnT values of 30, 52, 100 and 1000 ng/L correspond to approximately CHARLIE Gen 4 of 0.01, 0.03, 0.1 and 1 ng/mL Blood PERIPHERAL BLOOD SPECIMEN / Unknown Venipuncture / Unknown 04/15/2025 9:18 PM EDT 04/15/2025 10:29 PM EDT Dane Ayala MD LAB BLOOD ORDERABLES Final Result Performing Organization Address [facility] de Phone Number [facility] [address] [place] [address], [place] * XR Chest 2 VW (04/15/2025 [...] Heart Rate 98 BPM EKG BUR MUSE VT Interval 156 ms EKG BUR MUSE QRSD Interval 108 ms EKG BUR MUSE QT Interval 392 ms EKG BUR MUSE QTC Interval 500 ms EKG BUR MUSE P [place] 63 degrees EKG BUR MUSE R [place] -23 degrees EKG BUR MUSE T Wave [place] 65 degrees EKG BUR MUSE 04/15/2025 6:53 [...] for LVH, may be normal variant ( [place] product) Prolonged QT interval Abnormal ECG When compared with ECG of 14-Apr-2024 19:05, No significant change was found us Dane Ayala MD ECG ORDERABLES Patricia sammy Result EKG BUR MUSE [address] [place] [id number] * CT Angiogram Head Neck Code Stroke [...] large vascular territory infarction or hemorrhage. ~~Patent [place] without evidence of substantial stenosis or occlusion.~~Patent bilateral cervical carotid and vertebral arteries without evidence of stenosis >70% by NASCET criteria, occlusion, or dissection .~~Full read pending by neuroradiology. ~ Valentin Mena [id number]: BY ELECTRONICALLY SIGNING THIS REPORT, I THE ATTENDING PHYSICIAN ATTEST THAT I HAVE REVIEWED THE IMAGES FOR THE ABOVE PROCEDURE(S) AND AGREE WITH THE FINDINGS DOCUMENTED. Red Pavon MD, electronically signed on Apr 16 2025 10:13AM Narrative 04/16/2025 10:13 AM EDT EXAMINATION: CTA HEAD/NECK STROKE [id number] CT HEAD NECK. INDICATION: 69-year-old male with [...] normal. CTA HEAD: The vessels of the [place] and their principal intracranial branches [...] MD - 04/16/2025 EXAMINATION: CTA HEAD/NECK STROKE [id number] CT HEAD NECK. INDICATION: 69-year-old male with [...] normal. CTA HEAD: The vessels of the [place] and their principal intracranialbranches are [...] acutelarge vascular territory infarction or hemorrhage. ~~Patent [place] without evidence of substantial stenosis or occlusion.~~Patentbilateral cervical carotid and vertebral arteries without evidence of stenosis >70% by NASCET criteria,occlusion, or dissection .~~Full read pending by neuroradiology. ~ Valentin Mena [phone] [id number]: BY ELECTRONICALLY SIGNING THIS REPORT, I THE ATTENDING PHYSICIAN ATTESTTHAT I HAVE REVIEWED THE IMAGES FOR THE ABOVE PROCEDURE(S) AND AGREE WITHTHE FINDINGS DOCUMENTED. Red Pavon MD, electronically signed on Apr 16 2025 10:13AM us Dane Ayala MD IMG CT ORDERABLES Fi nal Result * TSH (04/15/2025 6:17 PM EDT) TSH 1.50 0.27 - 4.20 uIU/mL 04/15/2025 10:40 PM EDT [facility] Blood PERIPHERAL BLOOD SPECIMEN / Unknown Venipuncture / Unknown 04/15/2025 6:17 PM EDT 04/15/2025 6:20 PM EDT us Dane Ayala MD LAB BLOOD ORDERABLES Final Result [facility] [address] [place] [address], * (ABNORMAL) CBC and Differential (04/15/2025 6:17 PM EDT) WBC 9.11 4.00 - 10.00 K/uL 04/15/2025 6:25 PM EDT [facility] RBC 4.18(L) 4.60 - 6.10 M/uL 04/15/2025 6:25 PM EDT [facility] Hemoglobin 13.2(L) 13.7 - 17.5 g/dL 04/15/2025 6:25 PM EDT [facility] Hematocrit 39.6(L) 40.0 - 51.0 % 04/15/2025 6:25 PM EDT [facility] MCV 95 82 - 98 fL 04/15/2025 6:25 PM EDT [facility] MCH 31.6 26.0 - 32.0 pg 04/15/2025 6:25 PM EDT [facility] MCHC 33.3 32.0 - 37.0 g/dL 04/15/2025 6:25 PM EDT [facility] RDW 13.9 10.5 - 15.5 % 04/15/2025 6:25 PM EDT [facility] RDW-SD 48.0(H) 35.1 - 46.3 fL 04/15/2025 6:25 PM EDT [facility] Platelet Count 229 150 - 400 K/uL 04/15/2025 6:25 PM EDT [facility] Nucleated RBC 0 <=0 #/100 WBC 04/15/2025 6:25 PM EDT [facility] Neutrophil 77.6(H) 34.0 - 71.0 % 04/15/2025 6:25 PM EDT [facility] Lymphocyte 13.5(L) 19.0 - 53.0 % 04/15/2025 6:25 PM EDT [facility] Monocyte 7.8 5.0 - 13.0 % 04/15/2025 6:25 PM EDT [facility] Eosinophil 0.0(L) 1.0 - 7.0 % 04/15/2025 6:25 PM EDT [facility] Basophil 0.3 0.0 - 1.0 % 04/15/2025 6:25 PM EDT [facility] Immature Granulocyte ([place], Myelo, Promyelocyte) 0.8(H) 0.0 - 0.6 % 04/15/2025 6:25 PM EDT [facility] Absolute Neutrophil Count 7.07(H) 1.60 - 6.10 K/uL 04/15/2025 6:25 PM EDT [facility] Absolute Lymphocyte Count 1.23 1.20 - 3.70 K/uL 04/15/2025 6:25 PM EDT [facility] Absolute Monocyte Count 0.71 0.20 - 0.80 K/uL 04/15/2025 6:25 PM EDT [facility] Absolute Eosinophil Count 0.00(L) 0.04 - 0.54 K/uL 04/15/2025 6:25 PM EDT [facility] Absolute Basophil Count 0.03 0.01 - 0.08 K/uL 04/15/2025 6:25 PM EDT [facility] Absolute Immature Granulocyte ([place], Myelo, Promyelocyte) 0.07 0.00 - 0.09 K/uL 04/15/2025 6:25 PM EDT [facility] Blood PERIPHERAL BLOOD SPECIMEN / Unknown Venipuncture / Unknown 04/15/2025 6:17 PM EDT 04/15/2025 6:20 PM EDT us Dane Ayala MD LAB BLOOD ORDERABLES Final Result [facility] [address] [place] [address], [place] * Type and Screen (04/15/2025 6:17 PM EDT) ABO and Rh B POS 04/15/2025 7:42 PM EDT [facility] Antibody Screen NEG 7:42 PM EDT [facility] TS Expiration Date 04/18/2025 23:59 04/15/2025 7:42 PM EDT [facility] Blood Venipuncture / Unknown 04/15/2025 6:17 PM EDT 04/15/2025 6:41 PM EDT us Dane Ayala MD BLOOD BANK TEST ORDE RABLES Final Result [facility] B[facility] [address] [place] [address], [place] * (ABNORMAL) Troponin (04/15/2025 6:17 PM EDT) Troponin T HS 82(H) <=19 ng/L 04/15/2025 6:59 PM EDT [facility] Comment: hs-cTnT<=19 ng/L in 99% of healthy individuals. hs-cTnT values of 30, 52, 100 and 1000 ng/L correspond to approximately CHARLIE Gen 4 of 0.01, 0.03, 0.1 and 1 ng/mL Blood PERIPHERAL BLOOD SPECIMEN / Unknown Venipuncture / Unknown 04/15/2025 6:17 PM EDT 04/15/2025 6:20 PM EDT us Dane Ayala MD LAB BLOOD ORDERABLES Final Result Performing Organization Address [facility]/ZIP Co de Phone Number [facility] [address] [place] [address], [place] * (ABNORMAL) APTT (04/15/2025 6:17 PM EDT) PTT 42(H) 25 - 36 s 04/15/2025 7:35 PM EDT [facility] Blood PERIPHERAL BLOOD SPECIMEN / Unknown Venipuncture / Unknown 04/15/2025 6:17 PM EDT 04/15/2025 6:20 PM EDT us Dane Ayala MD LAB BLOOD ORDERABLES Final Result Performing Organization Address City/[facility]/ZIP Co de Phone Number [facility] [address] [place] [address], [place] * Prothrombin Time - INR (04/15/2025 6:17 PM EDT) Prothrombin Time 11.6 9.4 - 12.5 s 04/15/2025 7:35 PM EDT [facility] INR 1.1 0.9 - 1.1 04/15/2025 7:35 PM EDT [facility] Blood PERIPHERAL BLOOD SPECIMEN / Unknown Venipuncture / Unknown 04/15/2025 6:17 PM EDT 04/15/2025 6:20 PM EDT us Dane Ayala MD LAB BLOOD ORDERABLES Final Result [facility] [address] [place] [address], * (ABNORMAL) Comprehensive Metabolic Panel (04/15/2025 6:17 PM EDT) Pathologist [facility] Sodium 142 135 - 147 mmol/L 04/15/2025 6:59 PM EDT [facility] Potassium 3.9 3.5 - 5.4 mmol/L 04/15/2025 6:59 PM EDT [facility] Chloride 103 96 - 108 mmol/L 04/15/2025 6:59 PM EDT [facility] Total CO2/Bicarbonate 27 22 - 32 mmol/L 04/15/2025 6:59 PM EDT [facility] Anion Gap 12 10 - 18 mmol/L 04/15/2025 6:59 PM EDT [facility] BUN 25(H) 6 - 20 mg/dL 04/15/2025 6:59 PM EDT [facility] Creatinine, Blood 1.10 0.50 - 1.20 mg/dL 04/15/2025 6:59 PM EDT [facility] Glucose, Blood 104(H) 70 - 100 mg/dL 04/15/2025 6:59 PM EDT [facility] Calcium 9.8 8.4 - 10.3 mg/dL 04/15/2025 6:59 PM EDT [facility] Total Protein 6.8 6.4 - 8.3 g/dL 04/15/2025 6:59 PM EDT [facility] Albumin, Blood 3.9 3.5 - 5.2 g/dL 04/15/2025 6:59 PM EDT [facility] Globulin Result 2.9 2.0 - 4.0 g/dL 04/15/2025 6:59 PM EDT [facility] AST (SGOT) 19 0 - 40 U/L 04/15/2025 6:59 PM EDT [facility] ALT (SGPT) <5 0 - 40 U/L 04/15/2025 6:59 PM EDT [facility] Alkaline Phosphatase 182(H) 40 - 130 U/L 04/15/2025 6:59 PM EDT [facility] Total Bilirubin 0.4 0.0 - 1.5 mg/dL 04/15/2025 6:59 PM EDT [facility] Estimated GFR(CKD-EPI) 74 mL/min/BSA 04/15/2025 6:59 PM EDT [facility] Blood PERIPHERAL BLOOD SPECIMEN / Unknown Venipuncture / Unknown 04/15/2025 6:17 PM EDT 04/15/2025 6:20 PM EDT us Dane Ayala MD LAB BLOOD ORDERABLES Final Result Performing Organization Address City/[facility]/ZIP Co de Phone Number [facility] [address] [place] [address], [place] * (ABNORMAL) POCT Glucose (04/15/2025 6:15 PM EDT) Glucose, POC 110(H) 70 - 100 mg/dL 04/15/2025 6:15 PM EDT [facility] Comment: @Serial [id number] @Librarian Helper ZA=[id number] Blood 04/15/2025 6:15 PM EDT 04/15/2025 6:15 PM EDT us Dane Ayala MD POCT ORDERABLES - DE VICE Final Result [facility] [address] 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 Abnormal electrocardiography [...] on Sun05/28/25 at 0800, Last dose on [facility] 05/30/25 at 0400 Given 05/30/2025 5:43 AM [...] bedtime, First dose (after last modification) on [facility] 04/20/25 at 2200, Until Discontinued Given [...] and approved by Antimicrobial Stewardship provider (pager [phone])., Select the name of the APPROVING AST [...] and approved by Antimicrobial Stewardship provider (pager [phone])., Select the name of the APPROVING AST [...] and approved by Antimicrobial Stewardship provider (pager [phone])., Select the name of the APPROVING AST [...] and approved by Antimicrobial Stewardship provider (pager [phone])., Select the name of the APPROVING AST [...] 2100, Until Discontinued 2119 (Given - Provider: Maedlyn Bailey RN) 2105 (Given - Provider: Tiffanie [...] documented as of this encounter Care Teams Minister Assistant Relationship Specialty Start Date End Date Kilo Huynh Jr. [address] [place] [id number] PCP - General 11/09/22 documented as of this encounter
--- NOTE | ~2025-06-30 | CT_ITS ---
EXAMINATION: CT CHEST WITHOUT CONTRAST CLINICAL INFORMATION: Aspiration. COMPARISON: Correlated to chest x-ray dated June 27, 2025. TECHNIQUE: Multidetector volumetric CT imaging of the chest was done. Axial MIP volume rendering provided. Sagittal and coronal reformatted images were obtained. This CT examination was performed using dose optimization techniques as appropriate, variously including the following: *Automated exposure control *Adjustment of mA and/or kV according to patient size (this includes techniques or standardized protocols for targeted exams where dose is matched to indication/reason for exam; i.e. extremities or head) *Use of iterative reconstruction technique. DLP: 304 mGy centimeter. FINDINGS: Patient's motion artifact. EVALUATION MANAGER: Pulmonary reticular pattern. Cardiomediastinal silhouette size is normal. S-shaped curvature of the upper thoracic spine. Postsurgical changes, right shoulder. Upper extremities at the size of the chest. Catheter overlapping the left upper hemiabdomen. LUNGS: Multifocal patchy and confluent attenuation's involving left lower lung lobe and to a lesser extent right lower lung lobe and lingula. Secretions within the subsegmental pulmonary bronchi of the lower lung lobes. No gross pulmonary nodules. No bronchiectasis. No honeycombing. MEDIASTINUM: Prominent 1 cm mediastinal lymph nodes. No aneurysm, thoracic aorta. No pericardial effusion. Heart is not enlarged. No pneumomediastinum. No hemomediastinum. No hemopericardium. The thyroid gland is not enlarged. CORONARY ARTERY CALCIFICATION: Calcified plaques, LAD. PLEURA: No pleural effusion. No pneumothorax. No calcified pleural plaques. No hemothorax. AXILLA: No lymphadenopathy. UPPER ABDOMEN: Percutaneously placed gastrostomy tube. Oral contrast and the large intestine. OSSEOUS STRUCTURES: Degenerative changes in the right glenohumeral joint with thickened joint capsule. Multilevel cervical thoracic and upper lumbar spondylosis. No acute fracture or listhesis in the axial skeleton. No gross acute rib fracture. CT/CT chest wo IV con IMPRESSION: Multifocal aspiration pneumonia. Severe degenerative changes right glenohumeral joint. Superimposed inflammatory versus infectious process cannot be excluded. Fleischner guidelines were followed. Electronically signed by: Dave Reese MD 07/22/2025 09:33 AM EDT
[2025-06-30 17:24] VITALS: BP 139/81; PULSE 88; RESP 18; TEMP 36.2; O2SAT 99; BMI 23.7
--- OUTSIDE RECORDS SUMMARY | 2025-06-30 18:07 | XMS_ITS | Encounter Summary ---
Author Organization [facility] Address [address] [place] [address] Care Team Providers Care Emts Name Role Phone Malcolm Edmondson Primary Care Provider [phone] System, Provider Not In Primary Care Provider Un available Kalyan, Johanna Alonso Primary Care Provider Unavai lable Kalyan, Johanna Alonso Primary Care Provider Unavai lable Unknown, Provider Primary Care Provider Unava ilable None, Pcp Primary Care Provider Johanna Kidd MD Primary Care Provider [phone] None, Pcp Primary Care Provider Skye Morton MD Primary Care Provider [phone] Kilo Valera Jr. Primary Care Provid er Encounter Details Date Type Department Care Team (Late st Contact Info) Description 03/08/2015 Orders Only [facility] - [address] [place] [id number] Carter Rhodes [address] [place] [address] Social History Tobacco Use Types [...] documented as of this encounter Care Teams Emts Relationship Specialty Start Date End Date Malcolm Edmondson PCP - General 08/31/14 12/31/19 System, Provider Not In PCP - General 01/01/20 04/13/20 Johanna Biggs [address] [place] [address] Dr [address] [place] [address] PCP - General 04/14/20 10/27/20 Johanna Biggs [address] [place] [address] Dr [address] [place] [address] PCP - General 10/28/20 01/03/21 Unknown, Provider, [address] [place] [address] PCP - General 01/04/21 03/10/21 None, Pcp, [address] [place] [address] PCP - General 03/11/21 11/22/21 Johanna Biggs MD [address] [place] [address] PCP - General Family Practice 11/23/21 05/29/22 None, Pcp, [address] [place] [address] PCP - General 05/30/22 05/31/22 Skye De Leon MD [address] [place] [address] PCP - General Internal Medicine 06/01/22 11/08/22 Kilo Valera Jr. [address] [place] [address] PCP - General 11/09/22 documented as of this encounter
--- OUTSIDE RECORDS SUMMARY | 2025-06-30 18:08 | XMS_ITS | Encounter Summary ---
Author Organization [facility] Address [address] [id number] Care Team Providers Care Mail Forwarding System Markup Clerk Name Role Phone Malcolm Edmondson Primary Care Provider [phone] System, Provider Not In Primary Care Provider Un available Kalyan, Johanna Alonso Primary Care Provider Unavai lable Kalyan, Johanna Alonso Primary Care Provider Unavai lable Unknown, Provider Primary Care Provider Unava ilable None, Pcp Primary Care Provider UnavailJohanna Sorto MD Primary Care Provider [phone] None, Pcp Primary Care Provider UnavailSkye Chang MD Primary Care Provider [phone] Kilo Valera Jr. Primary Care Provid er Encounter Details Date Type Department Care Team (Late st Contact Info) Description 03/31/2015 Orders Only [facility] 41 [facility] - [address] [place] [address] Param Rhodes MD [address] [place] [id number] Schizoaffective disorder, unspecified condition (Primary Dx) Social [...] - 1.3 mg/dL 05/12/2015 7:38 PM EDT [facility] GFR Historical (MDRD) 54(L) >=60 mL/min/BSA 05/12/2015 7:38 PM EDT [facility] Estimated GFR (MDRD) 45(L) >=60 mL/min/BSA 05/12/2015 7:38 PM EDT [facility] Blood specimen (specimen) Venipuncture / Unknown 05/12/2015 5:30 PM EDT 05/12/2015 6:03 PM EDT [facility] - 05/12/2015 7:38 PM EDT Chronic Kidney Disease(CKD) Stages based on estimated GFR: GFR ml/min/1.73m^2 Stage of CKD 30-59 3 15-29 4 <15(or dialysis) 5 The GFR estimate is not accurate for: a) Acute renal failure. b) Dosage calculations for Pharmacy drugs. us Param Rhodes MD LAB BLOOD ORDERABLES Final Re sult [address] [address] * (ABNORMAL) Hepatic Function Panel (05/12/2015 5:30 PM EDT) Total Protein 7.1 6.2 - 8.2 g/dL 05/12/2015 7:38 PM EDT [facility] Albumin, Blood 3.7 3.4 - 4.9 g/dL 05/12/2015 7:38 PM EDT [facility] Total Bilirubin 0.4 0.2 - 1.3 mg/dL 05/12/2015 7:38 PM EDT [facility] Direct Bilirubin 0.1 0.1 - 0.5 mg/dL 05/12/2015 7:38 PM EDT [facility] Alkaline Phosphatase 120(H) 30 - 115 IU/L 05/12/2015 7:38 PM EDT [facility] AST (SGOT) 24 11 - 40 IU/L 05/12/2015 7:38 PM EDT [facility] ALT (SGPT) 34 7 - 40 IU/L 05/12/2015 7:38 PM EDT [facility] Blood specimen (specimen) Venipuncture / Unknown 05/12/2015 5:30 PM EDT 05/12/2015 6:03 PM EDT Param Rhodes MD LAB BLOOD ORDERABLES Final Re sult Performing Organization Address [facility]/ZIP Co de Phone Number [address] [address] * Valproic Acid Level (05/12/2015 5:30 PM EDT) Valproic Acid Level, Blood 72 50 - 100 ug/mL 05/12/2015 7:27 PM EDT [facility] Blood specimen (specimen) Venipuncture / Unknown 05/12/2015 5:30 PM EDT 05/12/2015 6:03 PM EDT Param Rhodes MD LAB BLOOD ORDERABLES Final Re sult Performing Organization Address [facility] Co de Phone Number [address] [address] * (ABNORMAL) Creatinine with GFRE (04/07/2015 5:31 PM EDT) Creatinine, Blood 1.6(H) 0.6 - 1.3 mg/dL 04/07/2015 7:52 PM EDT [facility] GFR Historical (MDRD) 54(L) >=60 mL/min/BSA 04/07/2015 7:52 PM EDT [facility] Estimated GFR (MDRD) 45(L) >=60 mL/min/BSA 04/07/2015 7:52 PM EDT [facility] Blood specimen (specimen) Venipuncture / Unknown 04/07/2015 5:31 PM EDT 04/07/2015 6:11 PM EDT Narrative [facility] - 04/07/2015 7:52 PM EDT Chronic Kidney Disease(CKD) Stages based on estimated GFR: GFR ml/min/1.73m^2 Stage of CKD 30-59 3 15-29 4 <15(or dialysis) 5 The GFR estimate is not accurate for: a) Acute renal failure. b) Dosage calculations for Pharmacy drugs. Param Rhodes MD LAB BLOOD ORDERABLES Final Re sult Performing Organization Address [facility] Co de Phone Number [address] [address] * Hepatic Function Panel (04/07/2015 5:31 PM EDT) Total Protein 6.9 6.2 - 8.2 g/dL 04/07/2015 7:52 PM EDT [facility] Albumin, Blood 3.6 3.4 - 4.9 g/dL 04/07/2015 7:52 PM EDT [facility] Total Bilirubin 0.4 0.2 - 1.3 mg/dL 04/07/2015 7:52 PM T [facility] Direct Bilirubin 0.2 0.1 - 0.5 mg/dL 04/07/2015 7:52 PM T [facility] Alkaline Phosphatase 100 30 - 115 IU/L 04/07/2015 7:52 PM EDT [facility] AST (SGOT) 19 11 - 40 IU/L 04/07/2015 7:52 PM EDT [facility] ALT (SGPT) 30 7 - 40 IU/L 04/07/2015 7:52 PM EDT [facility] Blood specimen (specimen) Venipuncture / Unknown 04/07/2015 5:31 PM EDT 04/07/2015 6:11 PM EDT Param Rhodes MD LAB BLOOD ORDERABLES Final Re sult Performing Organization Address [facility] Co de Phone Number [address] [place] [address] * Valproic Acid Level (04/07/2015 5:31 PM EDT) Valproic Acid Level, Blood 60 50 - 100 ug/mL 04/07/2015 7:35 PM EDT [facility] Blood specimen (specimen) Venipuncture / Unknown 04/07/2015 5:31 PM EDT 04/07/2015 6:11 PM EDT us Param Rhodes MD LAB BLOOD ORDERABLES Final Re sult [address] [address] documented in this encounter Visit Diagnoses Diagnosis [...] documented as of this encounter Care Teams Mail Forwarding System Markup Clerk Relationship Specialty Start Date End Date Malcolm Edmondson PCP - General 08/31/14 12/31/19 System, Provider Not In PCP - General 01/01/20 04/13/20 Johanna Biggs [address] [place] [address] PCP - General 04/14/20 10/27/20 Johanna Biggs [address] [place] [address] PCP - General 10/28/20 01/03/21 Unknown, Provider, [address] [place] [address] PCP - General 01/04/21 03/10/21 None, Pcp, [address] [place] [address] PCP - General 03/11/21 11/22/21 Johanna Biggs MD [address] [place] [address] PCP - General Family Practice 11/23/21 05/29/22 None, Pcp, [address] [place] [address] PCP - General 05/30/22 05/31/22 Skye De Leon MD [address] [place] [address] PCP - General Internal Medicine 06/01/22 11/08/22 Kilo Valera Jr. [address] [place] [address] PCP - General 11/09/22 documented as of this encounter
--- OUTSIDE RECORDS SUMMARY | 2025-06-30 18:08 | XMS_ITS | Encounter Summary ---
Author Organization [facility] Address [address] [id number] Care Team Providers Care Arm Rest Builder Name Role Phone Malcolm Edmondson Primary Care Provider [phone] System, Provider Not In Primary Care Provider Un available Kalyan, Johanna Alonso Primary Care Provider Unavai lable Kalyan, Johanna Alonso Primary Care Provider Unavai lable Unknown, Provider Primary Care Provider Unava ilable None, Pcp Primary Care Provider UnavailJohanna Sorto MD Primary Care Provider [phone] None, Pcp Primary Care Provider UnavailSkye Chang MD Primary Care Provider [phone] Kilo Valera Jr. Primary Care Provid er Encounter Details Date Type Department Care Team (Late st Contact Info) Description 03/31/2015 Orders Only [facility] - [address] [place] [address] Param Rhodes MD [address] [place] [address] Schizoaffective disorder, unspecified condition (Primary Dx) Social [...] documented as of this encounter Care Teams Arm Rest Builder Relationship Specialty Start Date End Date Malcolm Edmondson PCP - General 08/31/14 12/31/19 System, Provider Not In PCP - General 01/01/20 04/13/20 Johanna Biggs [address] [place] [address] [place] [address] PCP - General 04/14/20 10/27/20 Johanna Biggs [address] [place] [address] PCP - General 10/28/20 01/03/21 Unknown, Provider, [address] [place] [address] PCP - General 01/04/21 03/10/21 None, Pcp, [address] [place] [address] PCP - General 03/11/21 11/22/21 Johanna Biggs MD [address] [place] [address] PCP - General Family Practice 11/23/21 05/29/22 None, PcpMD [address] [place] [address] PCP - General 05/30/22 05/31/22 Skye De Leon MD [address] [place] [address] PCP - General Internal Medicine 06/01/22 11/08/22 Kilo Valera Jr. [address] [place] [address] PCP - General 11/09/22 documented as of this encounter
--- OUTSIDE RECORDS SUMMARY | 2025-06-30 18:08 | XMS_ITS | Clinical Summary ---
Author Organization [facility] Address [address] [place] [address] Phone Care Team Providers Care Hydropress Operator Name Role Phone Malcolm Edmondson MD [...] age to complete this topic Care Teams Hydropress Operator Relationship Specialty Start Date End Date Malcolm Edmondson MD [address] PCP - Insurance 04/08/15
--- OUTSIDE RECORDS SUMMARY | 2025-06-30 18:08 | XMS_ITS | Encounter Summary ---
Author Organization Kaylin hanna Address [address] [id number] Care Team Providers Care Email Manager Name Role Phone Malcolm Edmondson Primary Care Provider [phone] System, Provider Not In Primary Care Provider Un available Kalyan, Johanna Alonso Primary Care Provider Unavai lable Kalyan, Johanna Alonso Primary Care Provider Unavai lable Unknown, Provider Primary Care Provider Unava ilable None, Pcp Primary Care Provider UnavailJohanna Sorto MD Primary Care Provider [phone] None, Pcp Primary Care Provider UnavailSkye Chang MD Primary Care Provider [phone] Kilo Valera Jr. Primary Care Provid er Encounter Details Date Type Department Care Team (Late st Contact Info) Description 06/09/2015 Orders Only [facility] - [address] [place] [address] Param Rhodes MD [address] [place] [id number] Schizoaffective disorder, unspecified condition (Primary Dx) Social [...] Creatinine with GFRE (04/05/2016 5:48 PM EDT) [facility] Signature Creatinine, Blood 1.6(H) 0.6 - 1.3 mg/dL 04/05/2016 7:29 PM EDT [facility] GFR Historical (MDRD) 54(L) >=60 mL/min/BSA 04/05/2016 7:29 PM EDT [facility] Estimated GFR (MDRD) 45(L) >=60 mL/min/BSA 04/05/2016 7:29 PM EDT [facility] GFR Estimate Comment 04/05/2016 7:29 PM [facility] Comment: Chronic Kidney Disease(CKD) Stages based [...] ORDERABLES Final Re sult Performing Organization Address [facility] de Phone Number [address] [address] * Hepatic Function Panel (04/05/2016 5:48 PM EDT) Total Protein 6.4 6.2 - 8.2 g/dL 04/05/2016 7:29 PM EDT [facility] Albumin, Blood 3.6 3.4 - 4.9 g/dL 04/05/2016 7:29 PM EDT [facility] Total Bilirubin 0.4 0.2 - 1.3 mg/dL 04/05/2016 7:29 PM EDT [facility] Direct Bilirubin 0.1 0.1 - 0.5 mg/dL 04/05/2016 7:29 PM EDT [facility] Alkaline Phosphatase 91 30 - 115 IU/L 04/05/2016 7:29 PM EDT [facility] AST (SGOT) 14 11 - 40 IU/L 04/05/2016 7:29 PM EDT [facility] ALT (SGPT) 19 7 - 40 IU/L 04/05/2016 7:29 PM EDT [facility] Blood specimen (specimen) Venipuncture / Unknown 04/05/2016 5:48 PM EDT 04/05/2016 6:12 PM EDT us Param Rhodes MD LAB BLOOD ORDERABLES Final Re sult Performing Organization Address [facility] de Phone Number [address] [address] * Valproic Acid Level (04/05/2016 5:48 PM EDT) Valproic Acid Level, Blood 59 50 - 100 ug/mL 04/05/2016 6:57 PM EDT [facility] Blood specimen (specimen) Venipuncture / Unknown 04/05/2016 5:48 PM EDT 04/05/2016 6:10 PM EDT us Param Rhodes MD LAB BLOOD ORDERABLES Final Re sult Performing Organization Address [facility] de Phone Number [address] [address] * (ABNORMAL) Creatinine with GFRE (03/10/2016 9:04 AM EDT) Creatinine, Blood 1.6(H) 0.6 - 1.3 mg/dL 03/10/2016 10:03 AM EDT [facility] GFR Historical (MDRD) 54(L) >=60 mL/min/BSA 03/10/2016 10:03 AM EDT [facility] Estimated GFR (MDRD) 45(L) >=60 mL/min/BSA 03/10/2016 10:03 AM EDT [facility] GFR Estimate Comment 03/10/2016 10:03 AM T [facility] Comment: Chronic Kidney Disease(CKD) Stages based on estimated GFR: GFR ml/min/1.73m^2 Stage of CKD 30-59 3 15-29 4 <15(or dialysis) 5 The GFR estimate is not accurate for: a) Acute renal failure. b) Dosage calculations for Pharmacy drugs. Blood specimen (specimen) Venipuncture / Unknown 03/10/2016 9:04 AM EDT 03/10/2016 9:27 AM EDT Param Rhodes MD LAB BLOOD ORDERABLES Final Re [facility] Performing Organization Address [facility] Co de Phone Number [address] [address] * Hepatic Function Panel (03/10/2016 9:04 AM EDT) Total Protein 6.6 6.2 - 8.2 g/dL 03/10/2016 10:03 AM EDT [facility] Albumin, Blood 3.7 3.4 - 4.9 g/dL 03/10/2016 10:03 AM EDT [facility] Total Bilirubin 0.4 0.2 - 1.3 mg/dL 03/10/2016 10:03 AM EDT [facility] Direct Bilirubin 0.1 0.1 - 0.5 mg/dL 03/10/2016 10:03 AM EDT [facility] Alkaline Phosphatase 103 30 - 115 IU/L 03/10/2016 10:03 AM EDT [facility] AST (SGOT) 15 11 - 40 IU/L 03/10/2016 10:03 AM EDT [facility] ALT (SGPT) 20 7 - 40 IU/L 03/10/2016 10:03 AM EDT [facility] Blood specimen (specimen) Venipuncture / Unknown 03/10/2016 9:04 AM EDT 03/10/2016 9:27 AM EDT Param Rhodes MD LAB BLOOD ORDERABLES Final Re sult Performing Organization Address [facility]/ZIP Co de Phone Number [address] [address] * Valproic Acid Level (03/10/2016 9:04 AM EDT) Valproic Acid Level, Blood 72 50 - 100 ug/mL 03/10/2016 9:53 AM EDT [facility] Blood specimen (specimen) Venipuncture / Unknown 03/10/2016 9:04 AM EDT 03/10/2016 9:27 AM EDT Param Rhodes MD LAB BLOOD ORDERABLES Final Re sult Performing Organization Address [facility] Co de Phone Number [address] [address] * (ABNORMAL) Creatinine with GFRE (02/17/2016 5:36 PM EDT) Creatinine, Blood 1.6(H) 0.6 - 1.3 mg/dL 02/17/2016 8:24 PM EDT [facility] GFR Historical (MDRD) 54(L) >=60 mL/min/BSA 02/17/2016 8:24 PM EDT [facility] Estimated GFR (MDRD) 45(L) >=60 mL/min/BSA 02/17/2016 8:24 PM EDT [facility] GFR Estimate Comment 02/17/2016 8:24 PM EDT [facility] Comment: Chronic Kidney Disease(CKD) Stages based on estimated GFR: GFR ml/min/1.73m^2 Stage of CKD 30-59 3 15-29 4 <15(or dialysis) 5 The GFR estimate is not accurate for: a) Acute renal failure. b) Dosage calculations for Pharmacy drugs. Blood specimen (specimen) Venipuncture / Unknown 02/17/2016 5:36 PM EDT 02/17/2016 5:54 PM EDT Param Rhodes MD LAB BLOOD ORDERABLES Final Re sult [address] [id number] * (ABNORMAL) Hepatic Function Panel (02/17/2016 5:36 PM EDT) Total Protein 6.7 6.2 - 8.2 g/dL 02/17/2016 8:24 PM EDT [facility] Albumin, Blood 3.5 3.4 - 4.9 g/dL 02/17/2016 8:24 PM T [facility] Total Bilirubin 0.3 0.2 - 1.3 mg/dL 02/17[facility]2016 [facility] Direct Bilirubin <0.1(L) 0.1 - 0.5 mg/dL 02/17/2016 8:24 PM EDT [facility] Alkaline Phosphatase 95 30 - 115 IU/L 02/17/2016 8:24 PM EDT [facility] AST (SGOT) 15 11 - 40 IU/L 02/17/2016 8:24 PM EDT [facility] ALT (SGPT) 19 7 - 40 IU/L 02/17/2016 8:24 PM EDT [facility] Blood specimen (specimen) Venipuncture / Unknown 02/17/2016 5:36 PM EDT 02/17/2016 5:54 PM EDT Param Rhodes MD LAB BLOOD ORDERABLES Final Re sult Performing Organization Address [facility]/ZIP Co de Phone Number [address] [address] * Valproic Acid Level (02/17/2016 5:36 PM EDT) Valproic Acid Level, Blood 56 50 - 100 ug/mL 02/17/2016 7:51 PM EDT [facility] Blood specimen (specimen) Venipuncture / Unknown 02/17/2016 5:36 PM EDT 02/17/2016 5:54 PM EDT Param Rhodes MD LAB BLOOD ORDERABLES Final Re sult Performing Organization Address [facility] de Phone Number [address] [address] * (ABNORMAL) Creatinine with GFRE (01/19/2016 5:37 PM EDT) Pathologist [facility] Creatinine, Blood 1.5(H) 0.6 - 1.3 mg/dL 01/19/2016 7:39 PM EDT [facility] GFR Historical (MDRD) 58(L) >=60 mL/min/BSA 01/19/2016 7:39 PM EDT [facility] Estimated GFR (MDRD) 48(L) >=60 mL/min/BSA 01/19/2016 7:39 PM EDT [facility] GFR Estimate Comment 01/19/2016 7:39 PM T [facility] Comment: Chronic Kidney Disease(CKD) Stages based [...] ORDERABLES Final Re sult Performing Organization Address [facility] Co de Phone Number [address] [address] * Hepatic Function Panel (01/19/2016 5:37 PM EDT) Total Protein 6.7 6.2 - 8.2 g/dL 01/19/2016 7:39 PM EDT [facility] Albumin, Blood 3.7 3.4 - 4.9 g/dL 01/19/2016 7:39 PM EDT [facility] Total Bilirubin 0.4 0.2 - 1.3 mg/dL 01/19/2016 7:39 PM EDT [facility] Direct Bilirubin 0.1 0.1 - 0.5 mg/dL 01/19/2016 7:39 PM EDT [facility] Alkaline Phosphatase 90 30 - 115 IU/L 01/19/2016 7:39 PM EDT [facility] AST (SGOT) 17 11 - 40 IU/L 01/19/2016 7:39 PM EDT [facility] ALT (SGPT) 22 7 - 40 IU/L 01/19/2016 7:39 PM EDT [facility] Blood specimen (specimen) Venipuncture / Unknown 01/19/2016 5:37 PM EDT 01/19/2016 6:07 PM EDT Param Rhodes MD LAB BLOOD ORDERABLES Final Re sult Performing Organization Address [facility] Co de Phone Number [address] [address] * Valproic Acid Level (01/19/2016 5:37 PM EDT) Valproic Acid Level, Blood 54 50 - 100 ug/mL 01/19/2016 7:29 PM EDT [facility] Blood specimen (specimen) Venipuncture / Unknown 01/19/2016 5:37 PM EDT 01/19/2016 6:07 PM EDT Param Rhodes MD LAB BLOOD ORDERABLES Final Re sult Performing Organization Address City/[facility] Co de Phone Number [address] [address] * (ABNORMAL) Creatinine with GFRE (12/22/2015 5:40 PM EST) Creatinine, Blood 1.6(H) 0.6 - 1.3 mg/dL 12/22/2015 7:42 PM [facility] GFR Historical (MDRD) 54(L) >=60 mL/min/BSA 12/22/2015 7:42 PM [facility] Estimated GFR (MDRD) 45(L) >=60 mL/min/BSA 12/22/2015 7:42 PM [facility] Blood specimen (specimen) Venipuncture / Unknown 12/22/2015 5:40 PM EST 12/22/2015 6:01 PM EST [facility] - 12/22/2015 7:42 PM EST Chronic Kidney Disease(CKD) Stages based on estimated GFR: GFR ml/min/1.73m^2 Stage of CKD 30-59 3 15-29 4 <15(or dialysis) 5 The GFR estimate is not accurate for: a) Acute renal failure. b) Dosage calculations for Pharmacy drugs. Param Rhodes MD LAB BLOOD ORDERABLES Final Nica valdez Performing Organization Address [facility] Co de Phone Number [address] [address] * Hepatic Function Panel (12/22/2015 5:40 PM EST) Total Protein 6.6 6.2 - 8.2 g/dL 12/22/2015 7:42 PM [facility] Albumin, Blood 3.7 3.4 - 4.9 g/dL 12/22/2015 7:42 PM [facility] Total Bilirubin 0.4 0.2 - 1.3 mg/dL 12/22/2015 7:42 PM [facility] Direct Bilirubin 0.2 0.1 - 0.5 mg/dL 12/22/2015 7:42 PM [facility] Alkaline Phosphatase 88 30 - 115 IU/L 12/22/2015 7:42 PM [facility] AST (SGOT) 19 11 - 40 IU/L 12/22/2015 7:42 PM [facility] ALT (SGPT) 26 7 - 40 IU/L 12/22/2015 7:42 PM [facility] Blood specimen (specimen) Venipuncture / Unknown 12/22/2015 5:40 PM EST 12/22/2015 6:01 PM EST Param Rhodes MD LAB BLOOD ORDERABLES Final Re sult Performing Organization Address [facility]/ZIP Co de Phone Number [address] [address] * Valproic Acid Level (12/22/2015 5:40 PM EST) Valproic Acid Level, Blood 53 50 - 100 ug/mL 12/22/2015 7:12 PM [facility] Blood specimen (specimen) Venipuncture / Unknown 12/22/2015 5:40 PM EST 12/22/2015 6:01 PM EST Param Rhodes MD LAB BLOOD ORDERABLES Final Re sult Performing Organization Address [facility] Co de Phone Number [address] [address] * (ABNORMAL) Creatinine with GFRE (11/17/2015 5:39 PM EST) Creatinine, Blood 1.6(H) 0.6 - 1.3 mg/dL 11/17/2015 7:30 PM [facility] GFR Historical (MDRD) 54(L) >=60 mL/min/BSA 11/17/2015 7:30 PM [facility] Estimated GFR (MDRD) 45(L) >=60 mL/min/BSA 11/17/2015 7:30 PM [facility] Blood specimen (specimen) Venipuncture / Unknown 11/17/2015 5:39 PM EST 11/17/2015 6:17 PM EST Narrative [facility] - 11/17/2015 7:30 PM EST Chronic Kidney Disease(CKD) Stages based on estimated GFR: GFR ml/min/1.73m^2 Stage of CKD 30-59 3 15-29 4 <15(or dialysis) 5 The GFR estimate is not accurate for: a) Acute renal failure. b) Dosage calculations for Pharmacy drugs. Param Rhodes MD LAB BLOOD ORDERABLES Final Re sult Performing Organization Address [facility] Co de Phone Number [address] [address] * Hepatic Function Panel (11/17/2015 5:39 PM EST) Pathologist [facility] Total Protein 6.6 6.2 - 8.2 g/dL 11/17/2015 7:30 PM EST [facility] Albumin, Blood 3.7 3.4 - 4.9 g/dL 11/17/2015 7:30 PM EST [facility] Total Bilirubin 0.2 0.2 - 1.3 mg/dL 11/17/2015 7:30 PM [facility] Direct Bilirubin 0.1 0.1 - 0.5 mg/dL 11/17/2015 7:30 PM [facility] Alkaline Phosphatase 92 30 - 115 IU/L 11/17/2015 7:30 PM [facility] AST (SGOT) 16 11 - 40 IU/L 11/17/2015 7:30 PM [facility] ALT (SGPT) 19 7 - 40 IU/L 11/17/2015 7:30 PM EST [facility] Blood specimen (specimen) Venipuncture / Unknown 11/17/2015 5:39 PM EST 11/17/2015 6:17 PM EST Param Rhodes MD LAB BLOOD ORDERABLES Final Re sult Performing Organization Address [facility]/ZIP Co de Phone Number [address] [address] * Valproic Acid Level (11/17/2015 5:39 PM EST) Valproic Acid Level, Blood 66 50 - 100 ug/mL 11/17/2015 7:31 PM EST [facility] Blood specimen (specimen) Venipuncture / Unknown 11/17/2015 5:39 PM EST 11/17/2015 6:17 PM EST Param Rhodes MD LAB BLOOD ORDERABLES Final Re sult Performing Organization Address [facility] de Phone Number [address] [address] * (ABNORMAL) Creatinine with GFRE (10/07/2015 5:47 PM EST) Creatinine, Blood 1.5(H) 0.6 - 1.3 mg/dL 10/07/2015 7:22 PM EST [facility] GFR Historical (MDRD) 58(L) >=60 mL/min/BSA 10/07/2015 7:22 PM EST [facility] Estimated GFR (MDRD) 48(L) >=60 mL/min/BSA 10/07/2015 7:22 PM EST [facility] Blood specimen (specimen) Venipuncture / Unknown 10/07/2015 5:47 PM EST 10/07/2015 6:14 PM EST Narrative [facility] - 10/07/2015 7:22 PM EST Chronic Kidney Disease(CKD) Stages based on estimated GFR: GFR ml/min/1.73m^2 Stage of CKD 30-59 3 15-29 4 <15(or dialysis) 5 The GFR estimate is not accurate for: a) Acute renal failure. b) Dosage calculations for Pharmacy drugs. Param Rhodes MD LAB BLOOD ORDERABLES Final Re sult Performing Organization Address [facility] de Phone Number [address] [address] * Hepatic Function Panel (10/07/2015 5:47 PM EST) Total Protein 6.8 6.2 - 8.2 g/dL 10/07/2015 7:22 PM [facility] Albumin, Blood 3.8 3.4 - 4.9 g/dL 10/07/2015 7:22 PM [facility] Total Bilirubin 0.4 0.2 - 1.3 mg/dL 10/07/2015 7:22 PM [facility] Direct Bilirubin 0.1 0.1 - 0.5 mg/dL 10/07/2015 7:22 PM [facility] Alkaline Phosphatase 108 30 - 115 IU/L 10/07/2015 7:22 PM [facility] AST (SGOT) 15 11 - 40 IU/L 10/07/2015 7:22 PM [facility] ALT (SGPT) 35 7 - 40 IU/L 10/07/2015 7:22 PM [facility] Blood specimen (specimen) Venipuncture / Unknown 10/07/2015 5:47 PM EST 10/07/2015 6:14 PM EST Param Rhodes MD LAB BLOOD ORDERABLES Final Re sult Performing Organization Address City/[facility]/ZIP Co de Phone Number [address] [address] * Valproic Acid Level (10/07/2015 5:47 PM EST) Pathologist [facility] Valproic Acid Level, Blood 69 50 - 100 ug/mL 10/07/2015 7:03 PM [facility] Blood specimen (specimen) Venipuncture / Unknown 10/07/2015 5:47 PM EST 10/07/2015 6:13 PM EST Param Rhodes MD LAB BLOOD ORDERABLES Final Re sult Performing Organization Address City/[facility]/ZIP Co de Phone Number [address] [address] * (ABNORMAL) Creatinine with GFRE (09/06/2015 5:41 PM EST) Creatinine, Blood 1.5(H) 0.6 - 1.3 mg/dL 09/06/2015 8:43 PM EST [facility] GFR Historical (MDRD) 58(L) >=60 mL/min/BSA 09/06/2015 8:43 PM [facility] Estimated GFR (MDRD) 48(L) >=60 mL/min/BSA 09/06/2015 8:43 PM [facility] Blood specimen (specimen) Venipuncture / Unknown 09/06/2015 5:41 PM EST 09/06/2015 7:48 PM EST [facility] - 09/06/2015 8:43 PM EST Chronic Kidney Disease(CKD) Stages based on estimated GFR: GFR ml/min/1.73m^2 Stage of CKD 30-59 3 15-29 4 <15(or dialysis) 5 The GFR estimate is not accurate for: a) Acute renal failure. b) Dosage calculations for Pharmacy drugs. Param Rhodes MD LAB BLOOD ORDERABLES Final Re sult [place] [id number] * Hepatic Function Panel (09/06/2015 5:41 PM EST) Total Protein 6.6 6.2 - 8.2 g/dL 09/06/2015 8:43 PM [facility] Albumin, Blood 3.6 3.4 - 4.9 g/dL 09/06/2015 8:43 PM [facility] Total Bilirubin 0.4 0.2 - 1.3 mg/dL 09/06/2015 8:43 PM [facility] Direct Bilirubin 0.1 0.1 - 0.5 mg/dL 09/06/2015 8:43 PM [facility] Alkaline Phosphatase 90 30 - 115 IU/L 09/06/2015 8:43 PM [facility] AST (SGOT) 16 11 - 40 IU/L 09/06/2015 8:43 PM [facility] ALT (SGPT) 21 7 - 40 IU/L 09/06/2015 8:43 PM [facility] Blood specimen (specimen) Venipuncture / Unknown 09/06/2015 5:41 PM EST 09/06/2015 7:48 PM EST Param Rhodes MD LAB BLOOD ORDERABLES Final Re sult [address] [address] * Valproic Acid Level (09/06/2015 5:41 PM EST) Valproic Acid Level, Blood 68 50 - 100 ug/mL 09/06/2015 8:24 PM EST [facility] Blood specimen (specimen) Venipuncture / Unknown 09/06/2015 5:41 PM EST 09/06/2015 7:48 PM EST Param Rhodes MD LAB BLOOD ORDERABLES Final Re sult Performing Organization Address [facility] Co de Phone Number [address] [address] * (ABNORMAL) Creatinine with GFRE (08/04/2015 5:35 PM EDT) Creatinine, Blood 1.7(H) 0.6 - 1.3 mg/dL 08/04/2015 6:30 PM EDT [facility] GFR Historical (MDRD) 50(L) >=60 mL/min/BSA 08/04/2015 6:30 PM EDT [facility] Estimated GFR (MDRD) 42(L) >=60 mL/min/BSA 08/04/2015 6:30 PM EDT [facility] Blood specimen (specimen) Venipuncture / Unknown 08/04/2015 5:35 PM EDT 08/04/2015 6:17 PM EDT [facility] - 08/04/2015 6:30 PM EDT Chronic Kidney Disease(CKD) Stages based on estimated GFR: GFR ml/min/1.73m^2 Stage of CKD 30-59 3 15-29 4 <15(or dialysis) 5 The GFR estimate is not accurate for: a) Acute renal failure. b) Dosage calculations for Pharmacy drugs. us Param Rhodes MD LAB BLOOD ORDERABLES Final Re sult Performing Organization Address [facility] de Phone Number [address] [address] * Hepatic Function Panel (08/04/2015 5:35 PM EDT) Total Protein 6.9 6.2 - 8.2 g/dL 08/04/2015 6:30 PM EDT [facility] Albumin, Blood 3.9 3.4 - 4.9 g/dL 08/04/2015 6:30 PM EDT [facility] Total Bilirubin 0.5 0.2 - 1.3 mg/dL 08/04/2015 6:30 PM EDT [facility] Direct Bilirubin <0.1 <0.3 mg/dL 08/04/2015 6:30 PM EDT [facility] Alkaline Phosphatase 89 30 - 115 IU/L 08/04/2015 6:30 PM EDT [facility] AST (SGOT) 18 11 - 40 IU/L 08/04/2015 6:30 PM EDT [facility] ALT (SGPT) 23 7 - 40 IU/L 08/04/2015 6:30 PM EDT [facility] Blood specimen (specimen) Venipuncture / Unknown 08/04/2015 5:35 PM EDT 08/04/2015 6:17 PM EDT us Param Rhodes MD LAB BLOOD ORDERABLES Final Re sult Performing Organization Address [facility] de Phone Number [address] [address] * Valproic Acid Level (08/04/2015 5:35 PM EDT) Valproic Acid Level, Blood 52 50 - 100 ug/mL 08/04/2015 6:44 PM EDT [facility] Blood specimen (specimen) Venipuncture / Unknown 08/04/2015 5:35 PM EDT 08/04/2015 6:17 PM EDT us Param Rhodes MD LAB BLOOD ORDERABLES Final Re sult Performing Organization Address [facility] [place] [address] * (ABNORMAL) Creatinine with GFRE (07/07/2015 5:46 PM EDT) Creatinine, Blood 1.7(H) 0.6 - 1.3 mg/dL 07/07/2015 6:09 PM EDT [facility] GFR Historical (MDRD) 50(L) >=60 mL/min/BSA 07/07/2015 6:09 PM EDT [facility] Estimated GFR (MDRD) 42(L) >=60 mL/min/BSA 07/07/2015 6:09 PM EDT [facility] Blood specimen (specimen) Venipuncture / Unknown 07/07/2015 5:46 PM EDT 07/07/2015 5:47 PM EDT Narrative [facility] - 07/07/2015 6:09 PM EDT Chronic Kidney Disease(CKD) Stages based on estimated GFR: GFR ml/min/1.73m^2 Stage of CKD 30-59 3 15-29 4 <15(or dialysis) 5 The GFR estimate is not accurate for: a) Acute renal failure. b) Dosage calculations for Pharmacy drugs. Param Rhodes MD LAB BLOOD ORDERABLES Final Re sult Performing Organization Address [facility] Co de Phone Number [address] [address] * Hepatic Function Panel (07/07/2015 5:46 PM EDT) Total Protein 7.1 6.2 - 8.2 g/dL 07/07/2015 6:09 PM EDT [facility] Albumin, Blood 4.0 3.4 - 4.9 g/dL 07/07/2015 6:09 PM EDT [facility] Total Bilirubin 0.5 0.2 - 1.3 mg/dL 07/07/2015 6:09 PM EDT [facility] Direct Bilirubin 0.1 <0.3 mg/dL 07/07/2015 6:09 PM EDT [facility] Alkaline Phosphatase 89 30 - 115 IU/L 07/07/2015 6:09 PM EDT [facility] AST (SGOT) 18 11 - 40 IU/L 07/07/2015 6:09 PM EDT [facility] ALT (SGPT) 25 7 - 40 IU/L 07/07/2015 6:09 PM EDT [facility] Blood specimen (specimen) Venipuncture / Unknown 07/07/2015 5:46 PM EDT 07/07/2015 5:47 PM EDT Param Rhodes MD LAB BLOOD ORDERABLES Final Re sult Performing Organization Address [facility] Co de Phone Number [address] [address] * Valproic Acid Level (07/07/2015 5:46 PM EDT) Valproic Acid Level, Blood 61 50 - 100 ug/mL 07/07/2015 6:09 PM EDT [facility] Blood specimen (specimen) Venipuncture / Unknown 07/07/2015 5:46 PM EDT 07/07/2015 5:47 PM EDT Param Rhodes MD LAB BLOOD ORDERABLES Final Re sult Performing Organization Address City/[facility]/ZIP Co de Phone Number [address] [address] * CBC and Differential (06/09/2015 5:37 PM EDT) WBC 9.46 4.40 - 11.30 K/uL 06/09/2015 7:30 PM EDT [facility] RBC 5.12 4.5 - 5.9 M/uL 06/09/2015 7:30 PM EDT [facility] Hemoglobin 16.5 13.8 - 17.4 g/dL 06/09/2015 7:30 PM EDT [facility] Hematocrit 48.5 41.0 - 51.0 % 06/09/2015 7:30 PM EDT [facility] MCV 95 80 - 96 fL 06/09/2015 7:30 PM EDT [facility] Platelet Count 218 150 - 450 K/uL 06/09/2015 7:30 PM EDT [facility] RDW 13.6 11.6 - 14.6 % 06/09/2015 7:30 PM EDT [facility] Neutrophil 65 % 06/09/2015 7:30 PM EDT [facility] Lymphocyte 26 % 06/09/2015 7:30 PM EDT [facility] Monocyte 8 % 06/09/2015 7:30 PM EDT [facility] Eosinophil 0 % 06/09/2015 7:30 PM EDT [facility] Basophil 0 % 06/09/2015 7:30 PM EDT [facility] Absolute Neutrophil Count 6.17 1.40 - 6.60 K/uL 06/09/2015 7:30 PM EDT [facility] Absolute Lymphocyte Count 2.45 1.20 - 3.50 K/uL 06/09/2015 7:30 PM EDT [facility] Absolute Monocyte Count 0.80 0.00 - 1.00 K/uL 06/09/2015 7:30 PM EDT [facility] Absolute Eosinophil Count 0.00 0.00 - 0.40 K/uL 06/09/2015 7:30 PM EDT [facility] Absolute Basophil Count 0.04 0.00 - 0.20 K/uL 06/09/2015 7:30 PM EDT [facility] MPV 06/09/2015 7:30 PM EDT [facility] Blood specimen (specimen) Venipuncture / Unknown 06/09/2015 5:37 PM EDT 06/09/2015 5:53 PM EDT us Param Rhodes MD LAB BLOOD ORDERABLES Final Re sult [address] [address] * (ABNORMAL) Creatinine with GFRE (06/09/2015 5:37 PM EDT) Creatinine, Blood 1.7(H) 0.6 - 1.3 mg/dL 06/09/2015 7:45 PM EDT [facility] GFR Historical (MDRD) 50(L) >=60 mL/min/BSA 06/09/2015 7:45 PM EDT [facility] Estimated GFR (MDRD) 42(L) >=60 mL/min/BSA 06/09/2015 7:45 PM EDT [facility] Blood specimen (specimen) Venipuncture / Unknown 06/09/2015 5:37 PM EDT 06/09/2015 5:53 PM EDT [facility]ATORY - 06/09/2015 7:45 PM EDT Chronic Kidney Disease(CKD) Stages based on estimated GFR: GFR ml/min/1.73m^2 Stage of CKD 30-59 3 15-29 4 <15(or dialysis) 5 The GFR estimate is not accurate for: a) Acute renal failure. b) Dosage calculations for Pharmacy drugs. Param Rhodes MD LAB BLOOD ORDERABLES Final Re sult [address] [id number] * Hepatic Function Panel (06/09/2015 5:37 PM EDT) Total Protein 7.1 6.2 - 8.2 g/dL 06/09/2015 7:45 PM [facility] Albumin, Blood 3.8 3.4 - 4.9 g/dL 06/09/2015 7:45 PM [facility] Total Bilirubin 0.5 0.2 - 1.3 mg/dL 06/09/2015 7:45 PM T [facility] Direct Bilirubin 0.2 0.1 - 0.5 mg/dL 06/09/2015 7:45 PM [facility] Alkaline Phosphatase 94 30 - 115 IU/L 06/09/2015 7:45 PM T [facility] AST (SGOT) 16 11 - 40 IU/L 06/09/2015 7:45 PM T [facility] ALT (SGPT) 21 7 - 40 IU/L 06/09/2015 7:45 PM EDT [facility] Blood specimen (specimen) Venipuncture / Unknown 06/09/2015 5:37 PM EDT 06/09/2015 5:53 PM EDT Param Rhodes MD LAB BLOOD ORDERABLES Final Re sult Performing Organization Address City/[facility]/ZIP Co de Phone Number [address] [address] * Valproic Acid Level (06/09/2015 5:37 PM EDT) Valproic Acid Level, Blood 60 50 - 100 ug/mL 06/09/2015 6:37 PM EDT [facility] Blood specimen (specimen) Venipuncture / Unknown 06/09/2015 5:37 PM EDT 06/09/2015 5:53 PM EDT Param Rhodes MD LAB BLOOD ORDERABLES Final Re sult Performing Organization Address [facility] Co de Phone Number [address] [address] documented in this encounter Visit Diagnoses Diagnosis [...] documented as of this encounter Care Teams Email Manager Relationship Specialty Start Date End Date Malcolm Edmondson PCP - General 08/31/14 12/31/19 System, Provider Not In PCP - General 01/01/20 04/13/20 Johanna Biggs [address] [place] [address] [address] [place] [phone] PCP - General 04/14/20 10/27/20 Johanna Biggs [address] [place] [address] [address] [place] [phone] PCP - General 10/28/20 01/03/21 Unknown, Provider, [address] [place] [id number] PCP - General 01/04/21 03/10/21 None, Pcp, [address] [place] [id number] PCP - General 03/11/21 11/22/21 Johanna Biggs MD [address] [place] [id number] PCP - General Family Practice 11/23/21 05/29/22 None, Pcp, [address] [place] [id number] PCP - General 05/30/22 05/31/22 Skye De Leon MD [address] [place] [id number] PCP - General Internal Medicine 06/01/22 11/08/22 Klio Valera Jr. [address] [place] [id number] PCP - General 11/09/22 documented as of this encounter
--- OUTSIDE RECORDS SUMMARY | 2025-06-30 18:08 | XMS_ITS | Referral Summary ---
Author Organization [facility] r Address [address] [place] [address] Phone Care Team Providers Care Fire Regulator Name Role Phone Malcolm Edmondson MD Unavailable [...] of Treatment Not on file Care Teams Fire Regulator Relationship Specialty Start Date End Date Malcolm Edmondson MD [address] PCP - Insurance 04/08/15
--- OUTSIDE RECORDS SUMMARY | 2025-06-30 18:08 | XMS_ITS | Clinical Summary ---
Author Organization [facility] Address [address] [place] [address] Care Team Providers Care Acid Filler Name Role Phone Kilo Valera Jr. 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 [place] MODIFIED [...] ECG 12-LEAD Routine 05/25/2025 12:17 PM EDT 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 ACID [...] 04/23/2025 7:21 AM EDT HC VEEG BY [employer] [facility] INCR 12-26 HR UNMONITORED Routine 04/23/2025 [...] Heart Rate 101 BPM EKG BUR MUSE MN Interval 142 ms EKG BUR MUSE QRSD Interval 108 ms EKG BUR MUSE QT Interval 372 ms EKG BUR MUSE QTC Interval 482 ms EKG BUR MUSE P [place] 30 degrees EKG BUR MUSE R [place] -29 degrees EKG BUR MUSE T Wave [place] 30 degrees EKG BUR MUSE 06/25/2025 11:1 [...] ECG ORDERABLES Final Result EKG BUR MUSE [address] [place] [id number] * (ABNORMAL) Renal Function Panel (06/22/2025 5:26 AM EDT) Only the most recent of3 resultswithin the time period is included. Sodium 142 135 - 147 mmol/L 06/22/2025 6:44 AM EDT [facility] Potassium 4.2 3.5 - 5.4 mmol/L 06/22/2025 6:44 AM EDT [facility] Chloride 103 96 - 108 mmol/L 06/22/2025 6:44 AM EDT [facility] Total CO2/Bicarbonate 28 22 - 32 mmol/L 06/22/2025 6:44 AM EDT [facility] Anion Gap 11 10 - 18 mmol/L 06/22/2025 6:44 AM EDT [facility] BUN 27(H) 6 - 20 mg/dL 06/22/2025 6:44 AM EDT [facility] Creatinine, Blood 0.80 0.50 - 1.20 mg/dL 06/22/2025 6:44 AM EDT [facility] Glucose, Blood 141(H) 70 - 100 mg/dL 06/22/2025 6:44 AM EDT [facility] Calcium 9.0 8.4 - 10.3 mg/dL 06/22/2025 6:44 AM EDT [facility] Albumin, Blood 3.1(L) 3.5 - 5.2 g/dL 06/22/2025 6:44 AM EDT [facility] Phosphorus 3.7 2.7 - 4.5 mg/dL 06/22/2025 6:44 AM EDT [facility] Magnesium, Blood 2.2 1.6 - 2.6 mg/dL 06/22/2025 6:44 AM EDT [facility] Estimated GFR(CKD-EPI) 96 mL/min/BSA 06/22/2025 6:44 AM EDT [facility] Blood PERIPHERAL BLOOD SPECIMEN / Unknown Venipuncture / Unknown 06/22/2025 5:26 AM EDT 06/22/2025 5:47 AM EDT us Govind Olivo MD LAB BLOOD ORDERABLES Final Result [facility] [address] [place] [address], * (ABNORMAL) CBC and Differential (06/22/2025 12:37 AM EDT) Only the most recent of23 resultswithin the time period is included. WBC 6.62 4.00 - 10.00 K/uL 06/22/2025 1:15 AM EDT [facility] RBC 3.67(L) 4.60 - 6.10 M/uL 06/22/2025 1:15 AM EDT [facility] Hemoglobin 11.3(L) 13.7 - 17.5 g/dL 06/22/2025 1:15 AM EDT [facility] Hematocrit 34.7(L) 40.0 - 51.0 % 06/22/2025 1:15 AM EDT [facility] MCV 95 82 - 98 fL 06/22/2025 1:15 AM [facility] MCH 30.8 26.0 - 32.0 pg 06/22/2025 1:15 AM [facility] MCHC 32.6 32.0 - 37.0 g/dL 06/22/2025 1:15 AM [facility] RDW 15.5 10.5 - 15.5 % 06/22/2025 1:15 AM [facility] RDW-SD 53.1(H) 35.1 - 46.3 fL 06/22/2025 1:15 AM [facility] Platelet Count 185 150 - 400 K/uL 06/22/2025 1:15 AM [facility] Nucleated RBC 0 <=0 #/100 WBC 06/22/2025 1:15 AM [facility] Neutrophil 67.5 34.0 - 71.0 % 06/22/2025 1:15 AM [facility] Lymphocyte 20.1 19.0 - 53.0 % 06/22/2025 1:15 AM [facility] Monocyte 10.6 5.0 - 13.0 % 06/22/2025 1:15 AM [facility] Eosinophil 0.0(L) 1.0 - 7.0 % 06/22/2025 1:15 AM [facility] Basophil 0.3 0.0 - 1.0 % 06/22/2025 1:15 AM [facility] Immature Granulocyte ([place], Myelo, Promyelocyte) 1.5(H) 0.0 - 0.6 % 06/22/2025 1:15 AM [facility] Absolute Neutrophil Count 4.47 1.60 - 6.10 K/uL 06/22/2025 1:15 AM [facility] Absolute Lymphocyte Count 1.33 1.20 - 3.70 K/uL 06/22/2025 1:15 AM [facility] Absolute Monocyte Count 0.70 0.20 - 0.80 K/uL 06/22/2025 1:15 AM [facility] Absolute Eosinophil Count 0.00(L) 0.04 - 0.54 K/uL 06/22/2025 1:15 AM EDT [facility] Absolute Basophil Count 0.02 0.01 - 0.08 K/uL 06/22/2025 1:15 AM EDT [facility] Absolute Immature Granulocyte ([place], Myelo, Promyelocyte) 0.10(H) 0.00 - 0.09 K/uL 06/22/2025 1:15 AM EDT [facility] Blood PERIPHERAL BLOOD SPECIMEN / Unknown Venipuncture / Unknown 06/22/2025 12:37 AM EDT 06/22/2025 1:04 AM EDT us Govind Olivo MD LAB BLOOD ORDERABLES Final Result [facility] [address] [place] [address], [place] * XR Abdomen 1 VW (06/16/2025 [...] Govind Olivo MD [facility] Final Result * (ABNORMAL) Valproic Acid Level (06/15/2025 9:42 PM EDT) Only the most recent of2 resultswithin the time period is included. Valproic Acid Level, Blood 49(L) 50 - 100 ug/mL 06/15/2025 10:29 PM EDT [facility] Blood PERIPHERAL BLOOD SPECIMEN / Unknown Venipuncture / Unknown 06/15/2025 9:42 PM EDT 06/15/2025 9:45 PM EDT us Govind Olivo MD LAB BLOOD ORDERABLES Final Result [facility] [address] [place] [address], * Clozapine Level, Blood (06/15/2025 9:41 PM EDT) Only the most recent of3 resultswithin the time period is included. Norclozapine 88 25 - 400 mcg/L 06/19/2025 3:00 PM EDT [facility] Clozapine 224 mcg/L 06/19/2025 3:00 PM EDT [facility] Comment: The therapeutic response begins to appear at 100 mcg/L. Refractory schizophrenia appears to require a therapeutic concentration of at least 350 mcg/L (trough, at steady state). Toxic range: Greater than 900 mcg/L This test was developed and its analytical performance characteristics have been determined by [employer] [place], [place]. It has not been cleared or approved by the U.S. Food and Drug Administration. This assay has been validated pursuant to the CLIA regulations and is used for clinical purposes. Blood PERIPHERAL BLOOD SPECIMEN / Unknown Venipuncture / Unknown 06/15/2025 9:41 PM EDT 06/15/2025 9:45 PM EDT [facility] 06/19/2025 3:00 PM EDT Performing Organization Information: Site ID: [id number] Name: [employer] Address: [address] [place] [phone] Director: LEONEL RUIZ MD,PHD Govind Olvio MD LAB BLOOD ORDERABLES Final Result [address] [address], * Valproic Acid Level, Free (06/15/2025 9:41 PM EDT) [facility] Valproic Acid, Free 13.7 4.8 - 17.3 mg/L 06/19/2025 3:00 PM EDT [facility] Comment: Nonlinear drug binding properties result in the fraction of free valproic acid increasing as total drug increases. The free valproic acid fraction may range from 5% to 25% for the total drug range of 30-160 mg/L. Blood PERIPHERAL BLOOD SPECIMEN / Unknown Venipuncture / Unknown 06/15/2025 9:41 PM EDT 06/15/2025 9:45 PM EDT [facility] 06/19/2025 3:00 PM EDT Performing Organization Information: Site ID: [id number] Name: [employer] [facility] Address: [address] [place] [phone] Director: FIDEL CRAWFORD MD us Govind Olivo MD LAB BLOOD ORDERABLES Final Result [facility] [address], [place] [phone] * (ABNORMAL) CBC (06/15/2025 6:23 AM EDT) Only the most recent of16 resultswithin the time period is included. WBC 8.69 4.00 - 10.00 K/uL 06/15/2025 6:52 AM EDT [facility] RBC 3.83(L) 4.60 - 6.10 M/uL 06/15/2025 6:52 AM EDT [facility] Hemoglobin 11.6(L) 13.7 - 17.5 g/dL 06/15/2025 6:52 AM EDT [facility] Hematocrit 36.2(L) 40.0 - 51.0 % 06/15/2025 6:52 AM EDT [facility] MCV 95 82 - 98 fL 06/15/2025 6:52 AM EDT [facility] MCH 30.3 26.0 - 32.0 pg 06/15/2025 6:52 AM EDT [facility] MCHC 32.0 32.0 - 37.0 g/dL 06/15/2025 6:52 AM EDT [facility] RDW 14.5 10.5 - 15.5 % 06/15/2025 6:52 AM EDT [facility] RDW-SD 49.3(H) 35.1 - 46.3 fL 06/15/2025 6:52 AM EDT [facility] Platelet Count 256 150 - 400 K/uL 06/15/2025 6:52 AM EDT [facility] Nucleated RBC 0 <=0 #/100 WBC 06/15/2025 6:52 AM EDT [facility] Blood PERIPHERAL BLOOD SPECIMEN / Unknown Venipuncture / Unknown 06/15/2025 6:23 AM EDT 06/15/2025 6:36 AM EDT Urban Mondragon MD LAB BLOOD ORDERABLES Final Resul t Performing Organization Address City/[facility] Co de Phone Number [facility] [address] [place] [address], [place] * Phosphorus (06/15/2025 6:22 AM EDT) Only the most recent of23 resultswithin the time period is included. Phosphorus 3.4 2.7 - 4.5 mg/dL 06/15/2025 7:14 AM EDT [facility] Blood PERIPHERAL BLOOD SPECIMEN / Unknown Venipuncture / Unknown 06/15/2025 6:22 AM EDT 06/15/2025 6:36 AM EDT Urban Mondragon MD LAB BLOOD ORDERABLES Final Resul t Performing Organization Address [facility] de Phone Number [facility] [address] [place] [address], [place] * Magnesium (06/15/2025 6:22 AM EDT) Only the most recent of23 resultswithin the time period is included. Magnesium, Blood 2.1 1.6 - 2.6 mg/dL 06/15/2025 7:14 AM EDT [facility] Blood PERIPHERAL BLOOD SPECIMEN / Unknown Venipuncture / Unknown 06/15/2025 6:22 AM EDT 06/15/2025 6:36 AM EDT Urban Mondragon MD LAB BLOOD ORDERABLES Final Resul t Performing Organization Address City/[facility] Co de Phone Number [facility] [address] [place] [address], [place] * (ABNORMAL) Hepatic Function Panel (06/15/2025 6:22 AM EDT) Only the most recent of17 resultswithin the time period is included. Total Protein 5.9(L) 6.4 - 8.3 g/dL 06/15/2025 7:32 AM EDT [facility] Albumin, Blood 2.9(L) 3.5 - 5.2 g/dL 06/15/2025 7:32 AM EDT [facility] Globulin Result 3.0 2.0 - 4.0 g/dL 06/15/2025 7:32 AM EDT [facility] Total Bilirubin 0.2 0.0 - 1.5 mg/dL 06/15/2025 7:32 AM EDT [facility] Direct Bilirubin <0.1 0.0 - 0.3 mg/dL 06/15/2025 7:32 AM EDT [facility] Alkaline Phosphatase 117 40 - 130 U/L 06/15/2025 7:32 AM EDT [facility] AST (SGOT) 22 0 - 40 U/L 06/15/2025 7:32 AM EDT [facility] ALT (SGPT) 14 0 - 40 U/L 06/15/2025 7:32 AM EDT [facility] Blood PERIPHERAL BLOOD SPECIMEN / Unknown Venipuncture / Unknown 06/15/2025 6:22 AM EDT 06/15/2025 6:36 AM EDT us Urban Mondragon MD LAB BLOOD ORDERABLES Final Resul t [facility] [address] [place] [address], * (ABNORMAL) Basic Metabolic Panel (06/15/2025 6:22 AM EDT) Only the most recent of24 resultswithin the time period is included. Sodium 142 135 - 147 mmol/L 06/15/2025 7:14 AM EDT [facility] Potassium 4.2 3.5 - 5.4 mmol/L 06/15/2025 7:14 AM EDT [facility] Chloride 104 96 - 108 mmol/L 06/15/2025 7:14 AM EDT [facility] Total CO2/Bicarbonat e 29 22 - 32 mmol/L 06/15/2025 7:14 AM EDT [facility] Anion Gap 9(L) 10 - 18 mmol/L 06/15/2025 7:14 AM EDT [facility] BUN 28(H) 6 - 20 mg/dL 06/15/2025 7:14 AM EDT [facility] Creatinine, Blood 0.90 0.50 - 1.20 mg/dL 06/15/2025 7:14 AM EDT [facility] Glucose, Blood 109(H) 70 - 100 mg/dL 06/15/2025 7:14 AM EDT [facility] Calcium 8.9 8.4 - 10.3 mg/dL 06/15/2025 7:14 AM EDT [facility] Blood PERIPHERAL BLOOD SPECIMEN / Unknown Venipuncture / Unknown 06/15/2025 6:22 AM EDT 06/15/2025 6:36 AM EDT us Urban Mondragon MD LAB BLOOD ORDERABLES Final Resul t Performing Organization Address City/[facility]/ZIP Co de Phone Number [facility] [address] [place] [address], [place] * (ABNORMAL) POCT Glucose (06/11/2025 1:54 PM EDT) Only the most recent of52 resultswithin the time period is included. Glucose, POC 118(H) 70 - 100 mg/dL 06/11/2025 2:05 PM EDT [facility] Comment: @Serial Fphtod=[id number] @Shipping Order Clerk JF=[id number] Blood 06/11/2025 1:54 PM EDT 06/11/2025 2:05 PM EDT us Feliciano Choi MD POCT ORDERABLES - DEVICE Patricia l Result Performing Organization Address City/[facility]/ZIP Co de Phone Number [facility] [address] [place] [address], [place] * [place] Modified Barium Swallow Incl [...] - 10.00 K/uL 06/10/2025 9:52 AM EDT [facility] Neutrophil 85.5(H) 34.0 - 71.0 % 06/10/2025 9:52 AM EDT [facility] Lymphocyte 7.7(L) 19.0 - 53.0 % 06/10/2025 9:52 AM EDT [facility] Monocyte 5.6 5.0 - 13.0 % 06/10/2025 9:52 AM EDT [facility] Eosinophil 0.0(L) 1.0 - 7.0 % 06/10/2025 9:52 AM EDT [facility] Basophil 0.4 0.0 - 1.0 % 06/10/2025 9:52 AM EDT [facility] Nucleated RBC 0 <=0 #/100 WBC 06/10/2025 9:52 AM T [facility] Absolute Neutrophil Count 16.18(H) 1.60 - 6.10 K/uL 06/10/2025 9:52 AM EDT [facility] Absolute Lymphocyte Count 1.45 1.20 - 3.70 K/uL 06/10/2025 9:52 AM EDT [facility] Absolute Monocyte Count 1.06(H) 0.20 - 0.80 K/uL 06/10/2025 9:52 AM EDT [facility] Absolute Eosinophil Count 0.00(L) 0.04 - 0.54 K/uL 06/10/2025 9:52 AM EDT [facility] Absolute Basophil Count 0.07 0.01 - 0.08 K/uL 06/10/2025 9:52 AM EDT [facility] Immature Granulocyte ([place], Myelo, Promyelocyte) 0.8(H) 0.0 - 0.6 % 06/10/2025 9:52 AM EDT [facility] Absolute Immature Granulocyte ([place], Myelo, Promyelocyte) 0.16(H) 0.00 - 0.09 K/uL 06/10/2025 9:52 AM EDT [facility] Blood PERIPHERAL BLOOD SPECIMEN / Unknown Venipuncture / Unknown 06/10/2025 7:20 AM EDT 06/10/2025 7:30 AM EDT us Feliciano Choi MD LAB BLOOD ORDERABLES Final Re sult [facility] [address] [place] [address], [place] * (ABNORMAL) Manual Diff and Morph (06/02/2025 5:41 AM EDT) Only the most recent of5 resultswithin the time period is included. Neutrophil 73(H) 34 - 71 % 06/02/2025 8:02 AM EDT [facility] Lymphocyte 12(L) 19 - 53 % 06/02/2025 8:02 AM EDT [facility] Monocyte 7 5 - 13 % 06/02/2025 8:02 AM EDT [facility] Eosinophil 0(L) 1 - 7 % 06/02/2025 8:02 AM EDT [facility] Basophil 0 0 - 1 % 06/02/2025 8:02 AM EDT [facility] Band 4 0 - 5 % 06/02/2025 8:02 AM EDT [facility] Metamyelocyte 2(H) <=0 % 06/02/2025 8:02 AM EDT [facility] Myelocyte 2(H) <=0 % 06/02/2025 8:02 AM EDT [facility] Absolute Neutrophil Count 15.65(H) 1.60 - 6.10 K/uL 06/02/2025 8:02 AM EDT [facility] Absolute Lymphocyte Count 2.44 1.20 - 3.70 K/uL 06/02/2025 8:02 AM EDT [facility] Absolute Monocyte Count 1.42(H) 0.20 - 0.80 K/uL 06/02/2025 8:02 AM EDT [facility] Absolute Eosinophil Count 0.00(L) 0.04 - 0.54 K/uL 06/02/2025 8:02 AM EDT [facility] Absolute Basophil Count 0.00(L) 0.01 - 0.08 K/uL 06/02/2025 8:02 AM EDT [facility] Platelet Est Normal Normal 06/02/2025 8:02 AM EDT [facility] ANISOCYTOSIS 1+ 06/02/2025 8:02 AM EDT [facility] Microcytosis 1+ 06/02/2025 8:02 AM EDT [facility] Poikilocytosis 1+ 06/02/2025 8:02 AM EDT [facility] ACANTHOCYTES 1+ 06/02/2025 8:02 AM EDT [facility] OVALOCYTES 1+ 06/02/2025 8:02 AM EDT [facility] SCHISTOCYTES 1+ 06/02/2025 8:02 AM EDT [facility] SPHEROCYTES 1+ 06/02/2025 8:02 AM EDT [facility] TEAR DROP CELLS 1+ 8:02 AM EDT [facility] Total Cells Counted 100 06/02/2025 8:02 AM EDT [facility] Blood PERIPHERAL BLOOD SPECIMEN / Unknown Venipuncture / Unknown 06/02/2025 5:41 AM EDT 06/02/2025 5:45 AM EDT us Rabia Velasco MD LAB BLOOD ORDERABLES Final Resul t [facility] [address] [place] [address], [place] * XR Abdomen Portable (05/29/2025 11:22 [...] Est Normal Normal 05/29/2025 8:13 AM EDT [facility] ANISOCYTOSIS 1+ 05/29/2025 8:13 AM EDT [facility] Microcytosis 1+ 05/29/2025 8:13 AM EDT [facility] POLYCHROMASIA 1+ 05/29/2025 8:13 AM EDT [facility] Poikilocytosis 1+ 05/29/2025 8:13 AM EDT [facility] OVALOCYTES 1+ 05/29/2025 8:13 AM EDT [facility] SPHEROCYTES 1+ 05/29/2025 8:13 AM EDT [facility] TEAR DROP CELLS 1+ 8:13 AM EDT [facility] ACANTHOCYTES 1+ 05/29/2025 8:13 AM EDT [facility] Blood PERIPHERAL BLOOD SPECIMEN / Unknown Venipuncture / Unknown 05/29/2025 6:20 AM EDT 05/29/2025 6:29 AM EDT Rabia Velasco MD LAB BLOOD ORDERABLES Final Resul t Performing Organization Address City/[facility]/ZIP Co de Phone Number [facility] [address] [place] [address], * (ABNORMAL) C-Reactive Protein (05/28/2025 5:53 AM EDT) Only the most recent of2 resultswithin the time period is included. C-Reactive Protein (CRP) >300.0(H) 0.0 - 5.0 mg/L 05/28/2025 12:39 PM EDT [facility] Blood PERIPHERAL BLOOD SPECIMEN / Unknown Venipuncture / Unknown 05/28/2025 5:53 AM EDT 05/28/2025 6:01 AM EDT us Rabia Velasco MD LAB BLOOD ORDERABLES Final Resul t [facility] [address] [place] [address], * CT Angiogram Chest PE : Arteriogram [...] - 2.0 mmol/L 2025 8:34 PM EDT [facility] Blood PERIPHERAL BLOOD SPECIMEN / Unknown Venipuncture / Unknown 2025 8:28 PM EDT 2025 8:31 PM EDT us Rabia Velasco MD LAB BLOOD ORDERABLES Final Resul t [facility] [address] [place] [address], * (ABNORMAL) Blood Gas, Venous (2025 8:28 PM EDT) Only the most recent of2 resultswithin the time period is included. pH, Venous 7.47(H) 7.35 - 7.45 2025 8:35 PM EDT [facility] pCO2, Venous 41 35 - 45 mmHg 2025 8:35 PM EDT [facility] pO2, Venous 82 80 - 105 mmHg 2025 8:35 PM EDT [facility] HCO3, Venous 30 21 - 30 mmol/L 2025 8:35 PM EDT [facility] Carboxyhemoglo bin, VBG 1.6(H) 0.5 - 1.5 % 2025 8:35 PM EDT [facility] Methemoglobin, VBG 1.0(H) 0.2 - 0.6 % 2025 8:35 PM EDT [facility] Blood Venipuncture / Unknown 2025 8:28 PM EDT 2025 8:31 PM EDT us Rabia Velasco MD LAB BLOOD ORDERABLES Final Resul t [facility] [address] [place] [address], * (ABNORMAL) Comprehensive Metabolic Panel (2025 8:23 PM EDT) Only the most recent of3 resultswithin the time period is included. Sodium 145 135 - 147 mmol/L 2025 9:04 PM EDT [facility] Potassium 4.0 3.5 - 5.4 mmol/L 2025 9:04 PM EDT [facility] Chloride 106 96 - 108 mmol/L 2025 9:04 PM EDT [facility] Total CO2/Bicarbonate 27 22 - 32 mmol/L 2025 9:04 PM EDT [facility] Anion Gap 12 10 - 18 mmol/L 2025 9:04 PM EDT [facility] BUN 36(H) 6 - 20 mg/dL 2025 9:04 PM EDT [facility] Creatinine, Blood 0.90 0.50 - 1.20 mg/dL 2025 9:04 PM EDT [facility] Glucose, Blood 168(H) 70 - 100 mg/dL 2025 9:04 PM EDT [facility] Calcium 9.1 8.4 - 10.3 mg/dL 2025 9:04 PM EDT [facility] Total Protein 6.5 6.4 - 8.3 g/dL 2025 9:04 PM EDT [facility] Albumin, Blood 2.9(L) 3.5 - 5.2 g/dL 2025 9:04 PM EDT [facility] Globulin Result 3.6 2.0 - 4.0 g/dL 2025 9:04 PM EDT [facility] AST (SGOT) 15 0 - 40 U/L 2025 9:04 PM EDT [facility] ALT (SGPT) 8 0 - 40 U/L 2025 9:04 PM EDT [facility] Alkaline Phosphatase 125 40 - 130 U/L 2025 9:04 PM EDT [facility] Total Bilirubin 0.2 0.0 - 1.5 mg/dL 2025 9:04 PM EDT [facility] Blood PERIPHERAL BLOOD SPECIMEN / Unknown Venipuncture / Unknown 2025 8:23 PM EDT 2025 8:27 PM EDT us Rabia Velasco MD LAB BLOOD ORDERABLES Final Resul t [facility] [address] [place] [address], * Culture, Respiratory (Incl Gram) (2025 5:55 PM EDT) Respiratory Culture Heavy growth commensal respiratory nica STEPHEN 05/31/2025 2:23 PM EDT [facility] Smear,Gram Stain >25 PMNs and <10 epithelial cells/100X field 05/31/2025 2:23 PM EDT [facility] Smear,Gram Stain 4+ Multiple Organisms Present Consistent with Oropharyngeal Nica 05/31/2025 2:23 PM EDT [facility] Respiratory SPUTUM SPECIMEN OBTAINED BY SPUTUM INDUCTION / Unknown Collection / Unknown 2025 5:55 PM EDT 2025 6:16 PM EDT us Rabia Velasco MD MICROBIOLOGY - GENERAL ORDERABLE S Final Result [facility] [address] [place] [address], [place] * Nasal MRSA/SA By PCR (2025 3:35 PM EDT) MRSA PCR Negative Negative 05/28/2025 10:52 AM EDT [facility] S. aureus PCR Negative Negative 05/28/2025 10:52 AM EDT [facility] Swab BOTH ANTERIOR NARES / Unknown 2025 3:35 PM EDT 2025 4:00 PM EDT Narrative [facility] - 05/28/2025 10:52 AM EDT Test performed by GeneXpert real-time PCR. us Rabia Velasco MD MICROBIOLOGY - GENERAL ORDERABLE S Final Result [facility] [address] [place] [address], [place] * XR Chest 1 VW Portable [...] Reflex Hold Received 05/25/2025 8:01 AM EDT [facility] AP Urine MID-STREAM URINE SPECIMEN / Unknown Collection / Unknown 05/25/2025 5:11 AM EDT 05/25/2025 5:15 AM EDT us Rabia Velasco MD URINE ORDERABLES Final Result [facility] [address] [place] [address], * (ABNORMAL) Urinalysis with Reflex to Urine Culture (05/25/2025 5:11 AM EDT) Only the most recent of3 resultswithin the time period is included. Color, Urine Yellow Yellow, Colorless, Straw 05/25/2025 5:41 AM EDT [facility] Clarity, Urine Clear Clear 05/25/2025 5:41 AM EDT [facility] pH, Urine 7.5 5.0 - 8.0 05/25/2025 5:41 AM EDT [facility] Protein, Urine 50 mg/dL(A) Negative 05/25/2025 5:41 AM EDT [facility] Glucose, Urine Negative Negative 05/25/2025 5:41 AM EDT [facility] Ketone, Urine Negative Negative 05/25/2025 5:41 AM EDT [facility] Bilirubin, Urine Negative Negative 05/25/2025 5:41 AM EDT [facility] Urobilinogen, Urine Normal 0.2-1.0 mg/dL 05/25/2025 5:41 AM EDT [facility] Blood, Urine Negative Negative 05/25/2025 5:41 AM EDT [facility] Leukocyte Esterase, Urine Negative Negative 05/25/2025 5:41 AM EDT [facility] Nitrite, Urine Negative Negative 05/25/2025 5:41 AM EDT [facility] Specific [place], Urine 1.029 1.001 - 1.050 05/25/2025 5:41 AM EDT [facility] White Blood Cells, Urine <1 0 - 5 /hpf 05/25/2025 5:41 AM EDT [facility] Red Blood Cells, Urine 2 0 - 2 /hpf 05/25/2025 5:41 AM EDT [facility] Urine MID-STREAM URINE SPECIMEN / Unknown Collection / Unknown 05/25/2025 5:11 AM EDT 05/25/2025 5:15 AM EDT Rabia Velasco MD URINE ORDERABLES Final Result [facility] [address] [place] [address], * Culture, Blood (05/24/2025 6:58 PM EDT) Culture No growth after 5 days STEPHEN 05/29/2025 9:02 PM EDT [facility] Blood PERIPHERAL BLOOD SPECIMEN / Unknown Venipuncture / Unknown 05/24/2025 6:58 PM EDT 05/24/2025 7:02 PM EDT us Rabia Velasco MD MICROBIOLOGY - GENERAL ORDERABLE S Final Result [facility] [address] [place] [address], [place] * (ABNORMAL) Coronavirus SARS-CoV-2, Influenza A/B and RSV (05/24/2025 10:28 AM EDT) Only the most recent of2 resultswithin the time period is included. Coronavirus SARS-CoV-2 Positive(A) Negative 05/24/2025 11:10 AM EDT [facility] Influenza A Negative Not Detected by PCR 05/24/2025 11:10 AM EDT [facility] Influenza B Negative Not Detected by PCR 05/24/2025 11:10 AM EDT [facility] RSV by PCR Negative Not Detected by PCR 05/24/2025 11:10 AM EDT [facility] Respiratory SWAB OF INTERNAL NOSE / Unknown Collection / Unknown 05/24/2025 10:28 AM EDT 05/24/2025 10:29 AM EDT Narrative [facility] - 05/24/2025 11:10 AM EDT Test performed by GeneXpert real-time PCR. us Rabia Velasco MD BODY FLUIDS AND STOOLS ORDERABLE S Final Result Performing Organization Address City/[facility]/ZIP Co de Phone Number [facility] [address] [place] [address], [place] * IR G Tube Rescue (05/12/2025 5:00 PM EDT) Only the most recent of2 resultswithin the time period is included. Anatomical Region Laterality Modality X-Ray Angiograph y 05/14/2025 12:2 4 PM EDT Impressions 05/14/2025 12:22 PM EDT Technically successful gastrostomy tube rescue with placement of a new 16 Namibian (3 cm stoma length) gastrostomy tube. Recommend [...] draped in a sterile fashion. A 12 Namibian Maharaj was identified in the gastrostomy tract. The balloon of the Maharaj was deflated. A stiff Glidewire was advanced through the Maharaj catheter into the stomach. The Maharaj was removed with gentle traction. A 16 Namibian low- profile 3 cm stoma gastrostomy tube was advanced over the stiff Glidewire and into the stomach. The balloon was inflated with sterile water. The gastrostomy tube was aspirated revealing gastric contents. The gastrostomy tube was then flushed sterile water. Sterile dressings were applied. Patient tolerated the procedure well. No immediate postprocedural complications. FINDINGS: Existing gastrostomy tract with 12 Namibian Maharaj. Placement of new 16 Namibian 3 cm low-profile gastrostomy tube with aspiration [...] draped in a sterile fashion. A 12 Namibian Maharaj was identifiedin the gastrostomy tract. The balloon of the Maharaj was deflated. A stiff Glidewire was advanced through the Foleycatheter into the stomach. The Maharaj was removed with gentle traction. A16 Namibian low-profile 3 cm stoma gastrostomy tube was advanced over thestiff Glidewire and into the stomach. The balloon was inflated with sterile water. The gastrostomy tubewas aspirated revealing gastric contents. The gastrostomy tube was thenflushed sterile water. Sterile dressings were applied. Patient tolerated the procedure well. No immediate postproceduralcomplications. FINDINGS: Existing gastrostomy tract with 12 Namibian Maharaj. Placement of new 16 Namibian 3 cm low-profile gastrostomy tube withaspiration of [...] SARS-CoV-2 Negative Negative 05/07/2025 6:15 PM EDT [facility] Influenza A, PCR Negative Negative 05/07/20 6:15 PM EDT [facility] Influenza B, PCR Negative Negative 05/07/20 6:15 PM EDT [facility] RSV by PCR Negative Negative 05/07/2025 6:15 PM EDT [facility] Respiratory SWAB OF INTERNAL NOSE / Unknown Collection / Unknown 05/07/2025 12:20 PM EDT 05/07/2025 12:33 PM EDT Narrative [facility] - 05/07/2025 6:15 PM EDT Test performed with Hanny fritz Resp-4-Plex PCR assay, which has received emergency use authorization (EUA) by the U.S.Food and Drug Administration. Test performance verified by [facility] [address], [place], [place]. Dr. Dunia Adames MD. CLIA [id number], CAP [id number] . us Mohinder Johnson MD BODY FLUIDS AND STOOLS ORDERAB LES Final Result [facility] [address] [place] [address], [place] [phone] * EEG 24 Hour Continuous Video EEG (LTM) (05/01/2025 6:30 AM EDT) Anatomical Region Laterality Modality EEG Impressions 05/04/2025 9:47 AM EDT Abnormal EEG due to - intermittent background 5-7Hz theta slowing while awake Note on seizure risk / 6QCNYW6Z scores: Interpretation of scores the risk of [...] <5%. Assessment of the Validity of the 6CTHUT4V Score for Inpatient Seizure Risk Prediction. DEB [...] EPILEPTIFORM DISCHARGES: None EVENTS: None ECG: Unremarkable 8XQYSI3V score (on day 1 of EEG): 0 us Mildred Srinivasan MD NEUROLOGY ORDERABLES Final Resu lt * EEG 24 Hour Continuous Video EEG (LTM) (04/30/2025 2:04 PM EDT) Anatomical Region Laterality Modality EEG Impressions 05/01/2025 9:40 AM EDT Abnormal EEG due to - intermittent background 5-7Hz theta slowing while awake Note on seizure risk / 1PBNAC9B scores: Interpretation of scores the risk of [...] <5%. Assessment of the Validity of the 9CHTTM6I Score for Inpatient Seizure Risk Prediction. DEB [...] EPILEPTIFORM DISCHARGES: None EVENTS: None ECG: Unremarkable 2ZXGXO3S score (on day 1 of EEG): 0 us Mildred Srinivasan MD NEUROLOGY ORDERABLES Final Resu lt * (ABNORMAL) Urinalysis with Sediment (04/30/2025 12:21 PM EDT) Color, Urine Yellow Yellow, Colorless, Straw 04/30/2025 12:40 PM T [facility] Clarity, Urine Hazy(A) Clear 04/30/2025 12:40 PM T [facility] pH, Urine 7.0 5.0 - 8.0 04/30/2025 12:40 PM T [facility] Protein, Urine Negative Negative 04/30/2025 12:40 PM T [facility] Glucose, Urine Negative Negative 04/30/2025 12:40 PM T [facility] Ketone, Urine Negative Negative 04/30/2025 12:40 PM EDT [facility] Bilirubin, Urine Negative Negative 04/30/2025 12:40 PM T [facility] Urobilinogen, Urine Normal 0.2-1.0 mg/dL 04/30/2025 12:40 PM T [facility] Blood, Urine Negative Negative 04/30/2025 12:40 PM T [facility] Leukocyte Esterase, Urine Negative Negative 04/30/2025 12:40 PM T [facility] Nitrite, Urine Negative Negative 04/30/2025 12:40 PM T [facility] Specific [place], Urine 1.016 1.001 - 1.050 04/30/2025 12:40 PM T [facility] White Blood Cells, Urine <1 0 - 5 /hpf 04/30/2025 12:40 PM T [facility] Red Blood Cells, Urine <1 0 - 2 /hpf 04/30/2025 12:40 PM T [facility] Urine MID-STREAM URINE SPECIMEN / Unknown Collection / Unknown 04/30/2025 12:21 PM EDT 04/30/2025 12:35 PM EDT Mildred Srinivasan MD URINE ORDERABLES Final Result Performing Organization Address [facility] Co de Phone Number [facility] [address] [place] [address], [place] * (ABNORMAL) D-dimer (04/30/2025 10:14 AM EDT) D-Dimer 605(H) <=500 ng/mL FEU 04/30/2025 10:37 AM EDT [facility] Comment:In ambulatory patien ts with low pre-test probability (Wells Criteria); D-Dimer <500 can be used to exclude venous thomboembolic disease. Blood PERIPHERAL BLOOD SPECIMEN / Unknown Venipuncture / Unknown 04/30/2025 10:14 AM EDT 04/30/2025 10:20 AM EDT Mildred Srinivasan MD LAB BLOOD ORDERABLES Final Resu lt Performing Organization Address [facility] Co de Phone Number [facility] [address] [place] [address], [place] * Lactate Dehydrogenase, Blood (04/30/2025 10:10 AM EDT) [facility] Lactate Dehydrogenase (LDH) 192 94 - 250 U/L 04/30/2025 11:07 AM EDT [facility] Blood PERIPHERAL BLOOD SPECIMEN / Unknown Venipuncture / Unknown 04/30/2025 10:10 AM EDT 04/30/2025 10:20 AM EDT Mildred Srinivasan MD LAB BLOOD ORDERABLES Final Resu lt Performing Organization Address City/[facility] Co de Phone Number [facility] [address] [place] [address], [place] * (ABNORMAL) CK (Creatine Kinase) (04/30/2025 10:10 AM EDT) Only the most recent of3 resultswithin the time period is included. Pathologist [facility] Creatine Kinase Total (CK) 35(L) 47 - 322 U/L 04/30/2025 11:07 AM EDT [facility] Blood PERIPHERAL BLOOD SPECIMEN / Unknown Venipuncture / Unknown 04/30/2025 10:10 AM EDT 04/30/2025 10:20 AM EDT us Mildred Srinivasan MD LAB BLOOD ORDERABLES Final Resu lt [facility] [address] [place] [address], [place] * EEG 24 Hour Continuous Video EEG (LTM) (04/24/2025 9:35 AM EDT) Anatomical Region Laterality Modality EEG Impressions 04/25/2025 12:15 PM EDT Normal EEG in the awake, drowsy, and asleep states. Note on seizure risk / 7YHRJW2V scores: Interpretation of scores the risk of [...] <5%. Assessment of the Validity of the 8GSQUE5Z Score for Inpatient Seizure Risk Prediction. DEB [...] with rates of 80 to 100 bpm. 0PQQWR0M score (on day 1 of EEG): 1 [...] Ojeda MD Note on seizure risk / 7SKIGN8I scores: Interpretation of scores the risk of [...] <5%. [Assessment of the Validity of the 1TJGTI9R Score for Inpatient Seizure Risk Prediction. DEB Neurol. 2020 Jan 1;77(4):500-507.] Narrative 04/23/2025 2:52 PM EDT Table formatting from the original result was not included. CLINICAL NEUROPHYSIOLOGY LAB Department of Neurology [address] [place] [address] [address] ; [phone] Name: Carter Raymundo : 1955 Age: 69 [...] discharges. SEIZURES: There were no electrographic seizures. [employer]: Showed a generally regular rhythm, often with rates of 80 to 100 bpm. EVENTS: There were no pushbutton activations. 8ARULP4K score (Day1): 0 us Bonifacio Agudelo MD [...] Ojeda MD Note on seizure risk / 3IIRUV7Q scores: Interpretation of scores the risk of [...] <5%. [Assessment of the Validity of the 5QIFGO2K Score for Inpatient Seizure Risk Prediction. DEB Neurol. 2020 Jan 1;77(4):500-507.] Narrative 04/23/2025 1:07 PM EDT Table formatting from the original result was not included. CLINICAL NEUROPHYSIOLOGY LAB Department of Neurology [address] [place] [address] ; [phone] Name: Carter Raymundo : 1955 Age: 69 [...] discharges. SEIZURES: There were no electrographic seizures. [employer]: Showed a generally regular rhythm, often with a rate of about 100 bpm. EVENTS: There were no pushbutton activations. 0XDUZQ0K score (Day1): 0 us Bonifacio Agudelo MD NEUROLOGY ORDERABLES Final Resul t * Prolactin (04/22/2025 12:02 PM EDT) Pathologist [facility] Prolactin, Blood 14.0 4.0 - 15.0 ng/mL 04/22/2025 3:28 PM EDT [facility] Comment:Measured by Desiree El ecsys (ECLIA) version 2 which is largely unaffected by macroprolactin. Patient results determined by different manufacturers or methods may not be comparable. Blood PERIPHERAL BLOOD SPECIMEN / Unknown Venipuncture / Unknown 04/22/2025 12:02 PM EDT 04/22/2025 12:23 PM EDT us Bonifacio Agudelo MD LAB BLOOD ORDERABLES Final Resul t [facility] [address] [place] [address], * Lactic Acid (04/22/2025 11:21 AM EDT) Lactic Acid 2.0 0.5 - 2.0 mmol/L 04/22/2025 11:42 AM EDT [facility] Blood Venipuncture / Unknown 04/22/2025 11:21 AM EDT 04/22/2025 11:24 AM EDT us Bonifacio Agudelo MD LAB BLOOD ORDERABLES Final Resul t [facility] [address] [place] [address], [place] * Vitamin D, 25-OH (04/17/2025 7:40 AM EDT) `Vitamin D 25-OH Level 38 30 - 60 ng/mL 04/17/2025 3:33 PM EDT [facility] Blood PERIPHERAL BLOOD SPECIMEN / Unknown Venipuncture / Unknown 04/17/2025 7:40 AM EDT 04/17/2025 7:53 AM EDT us Bonifacio Agudelo MD LAB BLOOD ORDERABLES Final Resul t [facility] [address] [place] [address], [place] * XR Chest 2 VW (04/16/2025 [...] Drug Screen, Urine (04/16/2025 6:54 AM EDT) [facility] Amphetamines Screen, Urine Presumptive Negative Presumptive Negative 04/16/2025 7:58 AM EDT [facility] Comment:[facility] amphetamine cu t-off is 1000 ng/mL. Barbiturates Screen, Urine Presumptive Negative Presumptive Negative 04/16/2025 7:58 AM EDT [facility] Comment:[facility] Barbiturate cu t-off of 200 ng/mL. Benzodiazepine Screen, Urine Presumptive Negative Presumptive Negative 04/16/2025 7:58 AM EDT [facility] Comment: [facility] Benzodiazepine cut-off is 300 ng/mL BENZODIAZEPINE IMMUNOASSAY SCREEN DOES NOT DETECT SOME DRUGS, INCLUDING LORAZEPAM, CLONAZEPAM, AND FLUNITRAZEPAM Cannabinoids Screen, Urine Presumptive Negative Presumptive Negative 04/16/2025 7:58 AM EDT [facility] Comment:[facility] Cannabinoids c ut-off is 50 ng/mL. Cocaine Metabolite Screen, Urine Presumptive Negative Presumptive Negative 04/16/2025 7:58 AM EDT [facility] Comment:[facility] Cocaine cut-of f is 300 ng/mL. Fentanyl Screen, Urine Presumptive Negative Presumptive Negative 04/16/2025 7:58 AM EDT [facility] Comment: [facility] Fentanyl cut-off 5.0 ng/mL. FENTANYL ASSAY DETECTS FENTANYL AND NORFENTANYL. FALSE POSITIVE RENTANYL RESULTS MAY OCCUR IN PATIENTS TAKING RISPERIDONE, TRAZADONE, AND LABETALOL. Methadone Screen, Urine Presumptive Negative Presumptive Negative 04/16/2025 7:58 AM EDT [facility] Comment: [facility] Methadone cut-off is 300 ng/mL. METHADONE ASSAY DETECTS METHADONE (NOT OTHER OPIATES/OPIOIDS; QUETIAPINE(SEROQUEL) MAY CAUSE A FALSE POSITIVE RESULT. Opiates Screen, Urine Presumptive Negative Presumptive Negative 04/16/2025 7:58 AM EDT [facility] Comment: [facility] Opiate cut-off is 300 ng/mL. OPIATE ASSAY DOES NOT RELIABLY DETECT SYNTHETIC OPIOIDS;SUCH METHADONE, OXYCODONE, FENTANYL, BUPRENORPHINE, TRAMADOL,;NALOXONE, MEPERIDINE. SEE ONLINE LAB MANUAL FOR DETAILS Oxycodone Screen, Urine Presumptive Negative Presumptive Negative 04/16/2025 7:58 AM EDT [facility] Comment:[facility] Oxycodone cut- off is 100 ng/mL. Urine URINE SPECIMEN / Unknown Collection / Unknown 04/16/2025 6:54 AM EDT 04/16/2025 7:17 AM EDT us Dane Morris MD URINE ORDERABLES Fin al Result Performing Organization Address [facility] de Phone Number [facility] [address] [place] [address], [place] * (ABNORMAL) hs-Troponin T, 1hr (04/15/2025 11:33 PM EDT) Troponin T HS 83(H) <=19 ng/L 04/16/2025 12:19 AM EDT [facility] Comment: hs-cTnT<=19 ng/L in 99% of healthy individuals. hs-cTnT values of 30, 52, 100 and 1000 ng/L correspond to approximately CHARLIE Gen 4 of 0.01, 0.03, 0.1 and 1 ng/mL Blood PERIPHERAL BLOOD SPECIMEN / Unknown Venipuncture / Unknown 04/15/2025 11:33 PM EDT 04/15/2025 11:38 PM EDT us Dane Morris MD LAB BLOOD ORDERABLES Final Result Performing Organization Address [facility] Co de Phone Number [facility] [address] [place] [address], [place] * BB Retype (04/15/2025 11:33 PM EDT) BB RETYPE Received 04/16/2025 8:01 AM EDT [facility] Blood Venipuncture / Unknown 04/15/2025 11:33 PM EDT 04/15/2025 11:48 PM EDT us Dane Morris MD BLOOD BANK TEST ORDE RABLES Final Result Performing Organization Address [facility] Co de Phone Number [facility] [address] [place] [address], [place] * Ammonia (04/15/2025 11:33 PM EDT) Ammonia umol/L 11 10 - 60 umol/L 04/16/2025 12:21 AM EDT [facility] Blood PERIPHERAL BLOOD SPECIMEN / Unknown Venipuncture / Unknown 04/15/2025 11:33 PM EDT 04/15/2025 11:37 PM EDT Dane Morris MD LAB BLOOD ORDERABLES Final Result Performing Organization Address [facility] Co de Phone Number [facility] [address] [place] [address], [place] * MRI Brain Without Contrast (04/15/2025 11:19 PM EDT) Anatomical Region Laterality Modality Head Magnetic Resonan ce 04/15/2025 11:4 7 PM EDT Impressions 04/16/2025 11:44 AM EDT No acute intracranial abnormality. Specifically, no acute or recent infarction. WET READ: WET READ:~No acute intracranial abnormality. Angel Luis Tompkins [id number] [id number]. BY ELECTRONICALLY SIGNING THIS REPORT, I THE ATTENDING PHYSICIAN ATTEST THAT I HAVE REVIEWED THE IMAGES FOR THE ABOVE PROCEDURE(S) AND AGREE WITH THE FINDINGS DOCUMENTED. MD Deny Riley MD, electronically signed on Apr 16 2025 11:44AM Narrative 04/16/2025 11:44 AM EDT EXAMINATION: MR BRAIN WO CONTRAST. [id number] MR HEAD. INDICATION: Stroke protocol. DR. DANE [...] - 04/16/2025 EXAMINATION: MR BRAIN WO CONTRAST. [id number] MR HEAD. INDICATION: Stroke protocol. DR. DANE [...] READ:~No acute intracranial abnormality. Angel Luis Tompkins [phone] [id number]. BY ELECTRONICALLY SIGNING THIS REPORT, I THE ATTENDING PHYSICIAN ATTESTTHAT I HAVE REVIEWED THE IMAGES FOR THE ABOVE PROCEDURE(S) AND AGREE WITHTHE FINDINGS DOCUMENTED. MD Deny Riley MD, electronically signed on Apr 16 2025 11:44AM us Dane Morris MD [facility] MRI ORDERABLES F inal Result * (ABNORMAL) hs-Troponin T (reflex 1hr, 3hr) (04/15/2025 9:18 PM EDT) Troponin T HS 85(H) <=19 ng/L 04/15/2025 10:59 PM EDT [facility] Comment: hs-cTnT<=19 ng/L in 99% of healthy individuals. hs-cTnT values of 30, 52, 100 and 1000 ng/L correspond to approximately CHARLIE Gen 4 of 0.01, 0.03, 0.1 and 1 ng/mL Blood PERIPHERAL BLOOD SPECIMEN / Unknown Venipuncture / Unknown 04/15/2025 9:18 PM EDT 04/15/2025 10:29 PM EDT Dane Morris MD LAB BLOOD ORDERABLES Final Result Performing Organization Address [facility] de Phone Number [facility] [address] [place] [address], * (ABNORMAL) Toxicology Screen, Blood (04/15/2025 9:18 PM EDT) Acetaminophen Result,Blood <5 <5 =Not Detected ug/mL 04/15/2025 11:37 PM EDT [facility] Alcohol <10 <10 = Not Detected mg/dL 04/15/2025 11:37 PM EDT [facility] Salicylate Level, Blood <1(L) <4 = Not Detected mg/dL 04/15/2025 11:37 PM EDT [facility] Blood PERIPHERAL BLOOD SPECIMEN / Unknown Venipuncture / Unknown 04/15/2025 9:18 PM EDT 04/15/2025 10:29 PM EDT Dane Morris MD LAB BLOOD ORDERABLES Final Result Performing Organization Address [facility] de Phone Number [facility] [address] [place] [address], [place] * CT Angiogram Head Neck Code [...] large vascular territory infarction or hemorrhage. ~~Patent [place] without evidence of substantial stenosis or occlusion.~~Patent bilateral cervical carotid and vertebral arteries without evidence of stenosis >70% by NASCET criteria, occlusion, or dissection .~~Full read pending by neuroradiology. ~ Valentin Mena [phone]: BY ELECTRONICALLY SIGNING THIS REPORT, I THE ATTENDING PHYSICIAN ATTEST THAT I HAVE REVIEWED THE IMAGES FOR THE ABOVE PROCEDURE(S) AND AGREE WITH THE FINDINGS DOCUMENTED. Red Pavon MD, electronically signed on Apr 16 2025 10:13AM Narrative 04/16/2025 10:13 AM EDT EXAMINATION: CTA HEAD/NECK STROKE [id number] CT HEAD NECK. INDICATION: 69-year-old male with [...] normal. CTA HEAD: The vessels of the [place] and their principal intracranial branches [...] MD - 04/16/2025 EXAMINATION: CTA HEAD/NECK STROKE [id number] CT HEAD NECK. INDICATION: 69-year-old male with [...] normal. CTA HEAD: The vessels of the [place] and their principal intracranialbranches are [...] acutelarge vascular territory infarction or hemorrhage. ~~Patent [place] without evidence of substantial stenosis or occlusion.~~Patentbilateral cervical carotid and vertebral arteries without evidence of stenosis >70% by NASCET criteria,occlusion, or dissection .~~Full read pending by neuroradiology. ~ Valentin Mena [phone] [id number]: BY ELECTRONICALLY SIGNING THIS REPORT, I THE ATTENDING PHYSICIAN ATTESTTHAT I HAVE REVIEWED THE IMAGES FOR THE ABOVE PROCEDURE(S) AND AGREE WITHTHE FINDINGS DOCUMENTED. Red Pavon MD, electronically signed on Apr 16 2025 10:13AM Dane Morris MD IMG CT ORDERABLES Fi nal Result * (ABNORMAL) Troponin (04/15/2025 6:17 PM EDT) Troponin T HS 82(H) <=19 ng/L 04/15/2025 6:59 PM EDT [facility] Comment: hs-cTnT<=19 ng/L in 99% of healthy individuals. hs-cTnT values of 30, 52, 100 and 1000 ng/L correspond to approximately CHARLIE Gen 4 of 0.01, 0.03, 0.1 and 1 ng/mL Blood PERIPHERAL BLOOD SPECIMEN / Unknown Venipuncture / Unknown 04/15/2025 6:17 PM EDT 04/15/2025 6:20 PM EDT Dane Morris MD LAB BLOOD ORDERABLES Final Result [facility] LABORATORY [address] [place] [address], [place] * (ABNORMAL) APTT (04/15/2025 6:17 PM EDT) PTT 42(H) 25 - 36 s 04/15/2025 7:35 PM EDT [facility] Blood PERIPHERAL BLOOD SPECIMEN / Unknown Venipuncture / Unknown 04/15/2025 6:17 PM EDT 04/15/2025 6:20 PM EDT us Dane Morris MD LAB BLOOD ORDERABLES Final Result [facility] [address] [place] [address], [place] * Prothrombin Time - INR (04/15/2025 6:17 PM EDT) Pathologist [facility] Prothrombin Time 11.6 9.4 - 12.5 s 04/15/2025 7:35 PM EDT [facility] INR 1.1 0.9 - 1.1 04/15/2025 7:35 PM EDT [facility] Blood PERIPHERAL BLOOD SPECIMEN / Unknown Venipuncture / Unknown 04/15/2025 6:17 PM EDT 04/15/2025 6:20 PM EDT us Dane Morris MD LAB BLOOD ORDERABLES Final Result Performing Organization Address [facility]/ZIP Co de Phone Number [facility] [address] [place] [address], [place] * Type and Screen (04/15/2025 6:17 PM EDT) Pathologist [facility] ABO and Rh B POS 04/15/2025 7:42 PM EDT [facility] Antibody Screen NEG 7:42 PM EDT [facility] TS Expiration Date 04/18/2025 23:59 04/15/2025 7:42 PM EDT [facility] BLOOD [facility] Blood Venipuncture / Unknown 04/15/2025 6:17 PM EDT 04/15/2025 6:41 PM EDT us Dane Morris MD BLOOD BANK TEST ORDE RABLES Final Result [facility] BLOOD [facility] [address] [place] [address], [place] * TSH (04/15/2025 6:17 PM EDT) Pathologist [facility] TSH 1.50 0.27 - 4.20 uIU/mL 04/15/2025 10:40 PM EDT [facility] Blood PERIPHERAL BLOOD SPECIMEN / Unknown Venipuncture / Unknown 04/15/2025 6:17 PM EDT 04/15/2025 6:20 PM EDT us Dane Morris MD LAB BLOOD ORDERABLES Final Result [facility] [address] [place] [address], [place] * (ABNORMAL) Lipid Panel (01/20/2023 8:26 AM EDT) Cholesterol 157 <=199 mg/dL 01/20/2023 1:09 PM EDT [facility] Triglycerides 164(H) <150 mg/dL 01/20/2023 1:09 PM EDT [facility] HDL Cholesterol 49 >=40 mg/dL 3 1:09 PM EDT [facility] Risk Factor 3.2 <5.0 01/20/2023 1:09 PM EDT [facility] LDL Cholesterol 75 <100 mg/dL 3 1:09 PM EDT [facility] Blood BLOOD / Unknown 01/20/2023 8 :26 AM EDT 01/20/2023 8:45 AM EDT Narrative CONVERSION FROM [facility] - 01/20/2023 1:09 PM EDT Release to patient->Immediate us Chuck Bell MD LAB BLOOD ORDERABLES Final Result CONVERSION FROM [facility] [address] [place] [address] from Last 3 Months or Most Recently Relevant to Health Maintenance Insurance MEDICARE MEDEX MEDICARE MEDEX Advance Directives Documents on File Type Date Recorded Patient License Examiner Osmin nahtan Health Care Proxy 04/17/2025 3:36 PM MOLST/POLST [...] Delvin Adan Health Care Agent Care Teams Acid Filler Relationship Specialty Start Date End Date Kilo Valera Jr. [address] [place] [address] PCP - General 11/09/22
--- OUTSIDE RECORDS SUMMARY | 2025-06-30 18:10 | XMS_ITS | Encounter Summary ---
Author Organization [facility] Address [address] [place] [address] Care Team Providers Care Head Animal Trainer Name Role Phone Malcolm Edmondson Primary Care Provider [phone] System, Provider Not In Primary Care Provider Un available Kalyan, Johanna Alonso Primary Care Provider Unavai lable Kalyan, Johanna Alonso Primary Care Provider Unavai lable Unknown, Provider Primary Care Provider Unava ilable None, Pcp Primary Care Provider UnavailJohanna Sorto MD Primary Care Provider [phone] None, Pcp Primary Care Provider Skye Morton MD Primary Care Provider [phone] Kilo Valera Jr. Primary Care Provid er Encounter Details Date Type Department Care Team (Late st Contact Info) Description 11/29/2016 Orders Only [facility] [address] [facility] - [address] [place] [address] Param Rhodes MD [address] [place] [id number] Schizoaffective disorder, bipolar type (Primary Dx) Social [...] documented as of this encounter Care Teams Head Animal Trainer Relationship Specialty Start Date End Date Malcolm Edmondson PCP - General 08/31/14 12/31/19 System, Provider Not In PCP - General 01/01/20 04/13/20 Johanna Biggs [address] [place] [address] [place] [address] PCP - General 04/14/20 10/27/20 Johanna [place] [address] PCP - General 10/28/20 01/03/21 Unknown, Provider, [address] [place] [address] PCP - General 01/04/21 03/10/21 None, Pcp, [address] [place] [address] PCP - General 03/11/21 11/22/21 Johanna Biggs MD [address] [place] [address] PCP - General Family Practice 11/23/21 05/29/22 Lisa, MD Rere [address] [place] [address] PCP - General 05/30/22 05/31/22 Skye De Leon MD [address] [place] [address] PCP - General Internal Medicine 06/01/22 11/08/22 Kilo Valera Jr. [address] [place] [address] PCP - General 11/09/22 documented as of this encounter
--- OUTSIDE RECORDS SUMMARY | 2025-06-30 18:10 | XMS_ITS | Encounter Summary ---
Author Organization [facility] Address [address] [place] [address] Care Team Providers Care Hand Cigar Making Supervisor Name Role Phone Malcolm Edmondson Primary Care Provider [phone] System, Provider Not In Primary Care Provider Un available Kaylan, Johanna Alonso Primary Care Provider Unavai lable Kalyan, Johanna Alonso Primary Care Provider Unavai lable Unknown, Provider Primary Care Provider Unava ilable None, Pcp Primary Care Provider UnavailJohanna Sorto MD Primary Care Provider [phone] None, Pcp Primary Care Provider Syke Morton MD Primary Care Provider [phone] Kilo Valera Jr. Primary Care Provid er Encounter Details Date Type Department Care Team (Late st Contact Info) Description 11/29/2016 Orders Only [facility] 41 [facility] - [address] [place] [address] Param Rhodes MD [address] [place] [phone] Schizoaffective disorder, bipolar type (Primary Dx) Social [...] documented as of this encounter Care Teams Hand Cigar Making Supervisor Relationship Specialty Start Date End Date Malcolm Edmondson PCP - General 08/31/14 12/31/19 System, Provider Not In PCP - General 01/01/20 04/13/20 Johanna Biggs [address] [place] [address] [place] [address] PCP - General 04/14/20 10/27/20 Johanna Biggs [place] [address] PCP - General 10/28/20 01/03/21 Unknown, Provider, [address] [place] [address] PCP - General 01/04/21 03/10/21 None, Pcp, [address] [place] [address] PCP - General 03/11/21 11/22/21 Johanna Biggs MD [address] [place] [address] PCP - General Family Practice 11/23/21 05/29/22 Lisa, MD Rere [address] [place] [address] PCP - General 05/30/22 05/31/22 Skye De Leon MD [address] [place] [address] PCP - General Internal Medicine 06/01/22 11/08/22 Kilo Valera Jr. [address] [place] [address] PCP - General 11/09/22 documented as of this encounter
--- OUTSIDE RECORDS SUMMARY | 2025-06-30 18:10 | XMS_ITS | Encounter Summary ---
Author Organization [facility] Address [address] [place] [phone] Care Team Providers Care Email Marketing Manager Name Role Phone Malcolm Edmondson Primary Care Provider [phone] System, Provider Not In Primary Care Provider Un available Kalyan, Johanna Alonso Primary Care Provider Unavai lable Kalyan, Johanna Alonso Primary Care Provider Unavai lable Unknown, Provider Primary Care Provider Unava ilable None, Pcp Primary Care Provider UnavailJohanna Sorto MD Primary Care Provider [phone] None, Pcp Primary Care Provider Skye Morton MD Primary Care Provider [phone] Kilo Valera Jr. Primary Care Provid er Encounter Details Date Type Department Care Team (Late st Contact Info) Description 11/29/2016 Orders Only [facility] 41 [facility] - [address] [place] [address] Param Rhodes MD [address] [place] [address] Social History Tobacco Use Types Packs/Day Years [...] as of this encounter Care Teams Email Marketing Manager Relationship Specialty Start Date End Date Malcolm Edmondson PCP - General 08/31/14 12/31/19 System, Provider Not In PCP - General 01/01/20 04/13/20 Johanna Biggs [address] [place] [address] [place] [address] PCP - General 04/14/20 10/27/20 Johanna Biggs [place] [address] PCP - General 10/28/20 01/03/21 Unknown, Provider, [address] [place] [address] PCP - General 01/04/21 03/10/21 None, Pcp, [address] [place] [address] PCP - General 03/11/21 11/22/21 Johanna Biggs MD [address] [place] [address] PCP - General Family Practice 11/23/21 05/29/22 None, MD Rere [address] [place] [address] 27985 PCP - General 05/30/22 05/31/22 Skye De Leon MD [address] [place] [address] PCP - General Internal Medicine 06/01/22 11/08/22 Kilo Valera Jr. [address] [place] [address] PCP - General 11/09/22 documented as of this encounter
--- OUTSIDE RECORDS SUMMARY | 2025-06-30 18:10 | XMS_ITS | Encounter Summary ---
Author Organization [facility] Address [address] [place] [address] Care Team Providers Care Torch Operator Name Role Phone Kilo Valera Jr. 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 [...] ORDERABLE S Final Result Performing Organization Address [facility] de Phone Number [facility] [address] [place] [address], * Strep Pneumoniae Urine Antigen (12/23/2022 7:46 AM EST) Strep pneumo Urine Antigen Negative Negative [facility] 12/23/2022 4:55 PM EST [facility] Comment:Suggesting no curren t or recent pneumococcal infection. Infection due to S. Pneumoniae can not be ruled out since the antigen present in the sample maybe below the detection limit of the test. Urine MID-STREAM URINE SPECIMEN / Unknown 12/23/2022 7:46 AM EST 12/23/2022 3:28 PM EST us Len Goetz MD MICROBIOLOGY - GENERAL ORDERABLE S Final Result Performing Organization Address [facility] Co de Phone Number [facility] [address] [place] [address], [place] [phone] * Culture, Blood (12/23/2022 4:16 AM EST) Pathologist [facility] Culture No growth after 5 days STEPHEN 12/28/2022 11:01 AM EST [facility] Blood PERIPHERAL NERVOUS SYSTEM STRUCTURE / Unknown 12/23/2022 4:16 AM EST 12/23/2022 10:14 AM EST us Mike Ewing MD MICROBIOLOGY - GENERAL ORDERABLE S Final Result Performing Organization Address City/[facility]/ZIP Co de Phone Number [facility] [address] [place] [address], [place] [phone] * Culture, Blood (12/23/2022 4:15 AM EST) Culture No growth after 5 days STEPHEN 12/28/2022 11:01 AM EST [facility] Blood PERIPHERAL NERVOUS SYSTEM STRUCTURE / Unknown 12/23/2022 4:15 AM EST 12/23/2022 10:14 AM EST us Mike Ewing MD MICROBIOLOGY - GENERAL ORDERABLE S Final Result Performing Organization Address [facility] Co de Phone Number [facility] [address] [place] [address], [place] [phone] documented in this encounter Visit Diagnoses Not [...] documented as of this encounter Care Teams Torch Operator Relationship Specialty Start Date End Date Kilo Valera Jr. [address] [place] [address] PCP - General 11/09/22 documented as of this encounter
--- OUTSIDE RECORDS SUMMARY | 2025-06-30 18:10 | XMS_ITS | Encounter Summary ---
Author Organization [facility] Address [address] [place] [phone] Care Team Providers Care Methodologist Name Role Phone Malcolm Edmondson Primary Care Provider [phone] System, Provider Not In Primary Care Provider Un available Kalyan, Johanna Alonso Primary Care Provider Unavai lable Kalyan, Johanna Alonso Primary Care Provider Unavai lable Unknown, Provider Primary Care Provider Unava ilable None, Pcp Primary Care Provider Johanna Kidd MD Primary Care Provider [phone] None, Pcp Primary Care Provider Skye Morton MD Primary Care Provider [phone] Kilo Valera Jr. Primary Care Provid er Encounter Details Date Type Department Care Team (Late st Contact Info) Description 11/29/2016 Orders Only [facility] 41 [facility] - [address] [place] [address] Param Rhodes MD [address] [place] [address] Schizoaffective disorder (Primary Dx) Social History Tobacco [...] documented as of this encounter Care Teams Methodologist Relationship Specialty Start Date End Date Malcolm Edmondson PCP - General 08/31/14 12/31/19 System, Provider Not In PCP - General 01/01/20 04/13/20 Johanna Biggs [address] [place] [address] [place] [address] PCP - General 04/14/20 10/27/20 Johanna Biggs [place] [address] PCP - General 10/28/20 01/03/21 Unknown, Provider, [address] [place] [address] PCP - General 01/04/21 03/10/21 None, Pcp, [address] [place] [address] PCP - General 03/11/21 11/22/21 Johanna Biggs MD [address] [place] [address] 15370 PCP - General Family Practice 11/23/21 05/29/22 None, MD Rere [address] [place] [address] PCP - General 05/30/22 05/31/22 Skye De Leon MD [address] [place] [address] PCP - General Internal Medicine 06/01/22 11/08/22 Kilo Valera Jr. [address] [place] [address] PCP - General 11/09/22 documented as of this encounter
--- NOTE | 2025-06-30 18:29 | PC.ADMIT ---
Patient admitted to from Medical floor on CV at 1615. Transferred to unit via W/C. First admitted to on 06/25/25 and subsequently sent to [facility] treatment related to aspiration and difficulty swallowing. Patient had previously placed G tube. Past medical HX includes CKD, GERD, BPH, DVT, Gout, Erectile dysfunction and oropharyngeal dysphagia. Skin check completed. Scaly rash to R smith noted otherwise skin is intact. Non-ambulatory ; able to stand and pivot with assist. Patien declined to participate in admission process. On ice chips only. Tube feed orders initiated. Patient signed 3DN upon arrival to unit. On 1:1 for safety. Utilizing brief for incontinence. Oriented to unit. Declined to sign Treatment Plan and Care Plan. ADOLPH's not presented to patient due to previous admission to social work will verify whether they are available. Patient denies pain, denies AVH.
[2025-06-30 20:00] VITALS: BP 138/80; PULSE 100; RESP 16; TEMP 36.4; O2SAT 99
[2025-06-30] MEDS: Valproic Acid Liquid 250 MG/5 ML SOLUTION 500 MG G-TUBE (21:27)
[2025-06-30 22:14] VITALS: PULSE 102; RESP 13; O2SAT 96
[2025-07-01 08:00] VITALS: BP 127/87; PULSE 92; RESP 16; TEMP 36.9; O2SAT 97
[2025-07-01] MEDS: Valproic Acid Liquid 250 MG/5 ML SOLUTION 500 MG G-TUBE ×2 (09:48→20:22)
[2025-07-01] MEDS: Multivitamin with Minerals Liq 15 ML LIQUID G-TUBE (09:50)
[2025-07-01] MEDS: Lidocaine 4 % Patch ADH..PATCH 1 PATCH TRANSDERMA (09:50)
--- NOTE | 2025-07-01 10:40 | MHC.CLN ---
NUTRITION PATIENT WITH DYSPHAGIA AND HX ASPIRATION. REQUIRES NUTRITION/HYDRATION VIA PEG. RECOMMEND VITAL 1.5 AT 85 ML PER HOUR X 16 HOURS (ON AT 18:00 HOURS, OFF AT 10:00 HOURS) FREE WATER FLUSH 240 ML Q 4 HOURS. PROVIDES 2040 KCAL (28 KCALS/KG), 91.8 G PROTEIN (1.3 G/KG), 2479 TOTAL ML FREE WATER FROM FORMULA AND FLUSH (34.1 ML/KG). FOLLOW FOR TUBE FEED TOLERANCE, POSSIBLE PO INTAKE. USED WEIGHT=72.6 KG FOR ESTIMATED NEEDS. SEE CLINICAL NUTRITION ASSESSMENT 07/01/25.
[2025-07-01 10:41] LABS: Neut%MD 71.6 %; WBCANC 7.1 X10*3/uL
--- NOTE | 2025-07-01 10:46 | HO.PM.IMCN ---
History of Present Illness Data of Consult Service Date: 07/01/25 Primary Care Provider: Unknown Physician HPI Reason for consult: Medical management 70-year-old male with a past medical history of schizoaffective disorder on clozapine, hypertension, chronic kidney disease, L4/L5 laminectomy, constipation, coronary artery disease, CKD, BPH, and GERD, oropharyngeal dysphagia with frequent aspiration, peg tube with feedings, drug-induced parkinsonism, who presented from a nursing facility to [facility] with altered mental status and unresponsiveness. He had negative workup for stroke/[place]/seizures. His hospital course was complicated by COVID pneumonia. He clinically improved but continued to demonstrate suicidal ideation and psychosis, therefore was admitted here for further psychiatric treatment. [facility]y and periods of apnea. He required suctioning and breathing treatments and was transferred to the medical floor. While on medical floor, mentation inproved, medications were reviewed. He was found to have severe LOUANN on inpatient sleep study with AHI of 32/hr, franklyn SaO2 of 78%. He was started on CPAP 5-20 cm auto mode. His tube feedings were resumed and he was transferred back to [facility] for further care. Patient has a long history of dysphagia and swallowing studies, last barium swallow in May 2025. Per historical record, he is likely to be continued risk for aspiration and unlikely to meet nutritional needs on a full p.o. diet. Psychiatric team unclear if patient understands manifestations of risk for aspiration. Patient was given p.o. intake such as ice cream and pudding for pleasure at previous hospital. Again discussed with patient his aspiration risk with taking oral food and fluids. Patient is aware of risks of ongoing aspiration. Patient is alert and oriented x4. Aware of his situation. On exam he is awake and alert, denies any SOB, Chest pain, abdominal pain, or other concerns. He is not happy regarding feeding tube. Review of Systems Review of Systems: Denies any shortness of breath, chest pain, dizziness, lightheadedness, abdominal pain or discomfort, nausea vomiting or diarrhea PMFSH Social History Household Members: None Household Members Other:: Facility residents Housing: Other Housing Other:: Patient has been in hospital/rehabs for past 1 1/2 years. Do you presently have visiting nurse or other home services: No Comment: 1:1 sitter Patient Tobacco Use Status: Never used Tobacco e-Cigarette/Vaping Use: Never Used Second Hand Smoke Exposure: No Currently Displaying Signs/Symptoms of Drug Intoxication Withdrawal: No Advance Directives: Yes Advance Directives on File: Yes Advance Directives Date on File: 06/26/25 Do you have thoughts of harming others: None Do you have a plan to hurt others: No Plan Recently lost weight without trying: Unsure Nutrition Risks: No Nutritional Risk Poor oral hygiene: No service: No Sexual orientation: Straight/Heterosexual Meds Allergies Allergy/AdvReac Type Severity Reaction Status Date / Time No Known Allergies Allergy Verified 06/25/25 21:33 Active Medications: Current Medications Acetaminophen (Acetaminophen 325 Mg Tablet) 975 mg G-TUBE TID [facility] Last Admin: 07/01/25 09:49 Dose: 975 mg Albuterol/Ipratropium (Albuterol/Iprat 2.5/0.5mg 3 Ml Ampul.Neb) 3 ml INHALE Q4H PRN PRN Reason: Shortness of Breath Albuterol/Ipratropium (Albuterol/Iprat 2.5/0.5mg 3 Ml Ampul.Neb) 3 ml INHALE RQ4H WHILE AWAKE PRN PRN Reason: sob Atorvastatin Calcium (Atorvastatin Calcium 20 Mg Tablet) 20 mg G-TUBE DAILY [facility] Last Admin: 07/01/25 09:48 Dose: 20 mg Bisacodyl (Bisacodyl 10 Mg Supp.Rect) 10 mg NE DAILY PRN PRN Reason: Constipation Calcium Carbonate (Calcium Carbonate 750 Mg Tab.Chew) 750 mg G-TUBE TID PRN PRN Reason: Heartburn Clozapine (Clozapine 100 Mg Tablet) 200 mg G-TUBE BEDTIME CLAUDIA Last Admin: 06/30/25 21:30 Dose: 200 mg Clozapine (Clozapine 25 Mg Tablet) 25 mg G-TUBE DAILY CLAUDIA Last Admin: 07/01/25 09:48 Dose: 25 mg Famotidine (Famotidine 20 Mg Tablet) 20 mg G-TUBE BID [facility] Last Admin: 07/01/25 09:49 Dose: 20 mg Gabapentin (Gabapentin 300 Mg Capsule) 300 mg G-TUBE BEDTIME CLAUDIA Last Admin: 06/30/25 21:30 Dose: 300 mg Gabapentin (Gabapentin 100 Mg Capsule) 100 mg G-TUBE DAILY [facility] Last Admin: 07/01/25 10:10 Dose: 100 mg Guaifenesin (Guaifenesin 200 Mg/10 Ml 10 Ml Liquid) 10 ml G-TUBE Q4H PRN PRN Reason: Cough Haloperidol (Haloperidol 1 Mg Tablet) 2 mg G-TUBE BID PRN PRN Reason: Agitation Haloperidol (Haloperidol 1 Mg Tablet) 1 mg G-TUBE DAILY [facility] Last Admin: 07/01/25 09:48 Dose: 1 mg Haloperidol (Haloperidol 1 Mg Tablet) 3 mg G-TUBE BEDTIME CLAUDIA Last Admin: 06/30/25 21:29 Dose: 3 mg Lactulose (Lactulose 20 Gm/30 Ml Solution) 20 gm NE BID CLAUDIA Last Admin: 07/01/25 09:50 Dose: 20 gm Lidocaine (Lidocaine 4 % Patch Adh..Patch) 1 patch TRANSDERMA DAILY [facility]; Protocol Last Admin: 07/01/25 09:50 Dose: 1 patch Multivitamins/Minerals (Multivitamin With Minerals Liq 15 Ml Liquid) 15 ml G-TUBE DAILY [facility] Last Admin: 07/01/25 09:50 Dose: 15 ml Polyethylene Glycol (Polyethylene Glycol 3350 17 Gm Powd.Pack) 17 gm G-TUBE BID [facility] Last Admin: 07/01/25 09:50 Dose: 17 gm Simethicone (Simethicone 80 Mg Tab.Chew) 80 mg PO Q6H PRN PRN Reason: Dyspepsia Tamsulosin HCl (Tamsulosin Hcl 0.4 Mg Capsule) 0.4 mg PO BEDTIME [facility] Last Admin: 06/30/25 21:17 Dose: Not Given Trazodone HCl (Trazodone Hcl 50 Mg Tablet) 150 mg G-TUBE BEDTIME [facility] Last Admin: 06/30/25 21:30 Dose: 150 mg Valproic Acid (Valproic Acid Liquid 250 Mg/5 Ml Solution) 500 mg G-TUBE BID [facility] Last Admin: 07/01/25 09:48 Dose: 500 mg Home Medications ?Medication ?Instructions ?Recorded ?Confirmed ?Last Taken ?Type acetaminophen 500 mg tablet 1,000 mg feeding tube TID 06/25/25 06/30/25 06/30/25 09:50 History atorvastatin 20 mg tablet 20 mg feeding tube DAILY 06/25/25 06/30/25 06/30/25 09:52 History bisacodyl 10 mg rectal suppository 10 mg NE DAILY PRN Constipation 06/25/25 06/30/25 05/13/25 20:40 History calcium carbonate 1,000 mg feeding tube TID PRN 06/25/25 06/30/25 Unknown History Heartburn clozapine 100 mg tablet 200 mg feeding tube BEDTIME 06/25/25 06/30/25 06/29/25 22:04 History clozapine 25 mg tablet 25 mg feeding tube QAM 06/25/25 06/30/25 06/30/25 09:52 History diclofenac sodium 1 % topical gel 2 g topical QID PRN Pain 06/25/25 06/30/25 06/23/25 21:35 History enoxaparin 40 mg/0.4 mL 40 mg subcut DAILY 06/25/25 06/30/25 06/24/25 21:06 History subcutaneous syringe famotidine 20 mg tablet 20 mg feeding tube BID 06/25/25 06/30/25 06/25/25 09:41 History gabapentin 100 mg capsule 100 mg feeding tube QAM 06/25/25 06/30/25 06/30/25 09:53 History gabapentin 100 mg capsule 300 mg feeding tube BEDTIME 06/25/25 06/30/25 06/29/25 22:04 History guaifenesin 100 mg/5 mL oral liquid 200 mg feeding tube Q4H PRN Cough 06/25/25 06/30/25 06/23/25 04:05 History haloperidol 1 mg tablet 1 mg feeding tube QAM 06/25/25 06/30/25 06/30/25 09:52 History haloperidol 1 mg tablet 3 mg feeding tube BEDTIME 06/25/25 06/30/25 06/29/25 22:03 History haloperidol 2 mg tablet 2 mg feeding tube BID PRN Agitation 06/25/25 06/30/25 06/14/25 16:55 History ipratropium 0.5 mg-albuterol 3 mg 3 ml inhalation Q4H PRN Shortness 06/25/25 06/30/25 Unknown History (2.5 mg base)/3 mL nebulization Of Breath soln lactulose 10 gram/15 mL oral 20 g NE BID 06/25/25 06/30/25 06/25/25 09:40 History solution lidocaine 4 % topical patch 1 patch topical DAILY 06/25/25 06/30/25 06/30/25 09:53 History multivitamin with minerals 15 ml feeding tube DAILY 06/25/25 06/30/25 06/30/25 09:52 History polyethylene glycol 3350 17 gram 17 g feeding tube BID 06/25/25 06/30/25 06/30/25 09:52 History oral powder packet (Miralax) ramelteon 8 mg tablet 8 mg PO BEDTIME 06/25/25 06/30/25 06/24/25 21:06 History simethicone 80 mg chewable tablet 80 mg PO Q6H PRN Dyspepsia 06/25/25 06/30/25 06/20/25 10:10 History tamsulosin 0.4 mg capsule 0.4 mg PO BEDTIME 06/25/25 06/30/25 06/29/25 22:04 History trazodone 150 mg tablet 150 mg feeding tube BEDTIME 06/25/25 06/30/25 06/29/25 22:04 History valproic acid (as sodium salt) 250 500 mg feeding tube BID 06/25/25 06/30/25 06/30/25 09:52 History mg/5 mL oral solution Physical Exam Vital Signs and Narrative: Vital Signs: Last Vital Signs Temp 98.4 F 07/01/25 08:00 Pulse 92 07/01/25 08:00 Resp 16 07/01/25 08:00 BP 127/87 07/01/25 08:00 Pulse Ox 97 07/01/25 08:00 O2 Del Method Room Air 07/01/25 08:00 BMI result Body Mass Index 23.7 CONST: Alert and oriented, in NAD. Appears chronically ill, weak and deconditioned HEENT: Normocephalic, atraumatic, MMM, Eyes clear, Neck supple RESP: Lungs clear, RRR even and regular HEART:,RRR, S1, S2. No edema GI:Abdomen Soft NT, ND. + BS times four :Deferred SKIN: Warm dry and intact, no visible lesions or rashes NEURO:CN II-XII Intact bilaterally, Sensation intact. Speech clear PSYCH: Normal affect Results Labs 07/01/25 10:35 Labs: Laboratory Results - last 24 hr 07/01/25 10:35 Absolute Neuts (auto) 5.1 Assessment and Plan (1) Dysphagia: Qualifiers: Dysphagia type: unspecified Qualified Code(s): R13.10 - Dysphagia, unspecified Status: Acute Plan 70-year-old male admitted here after a prolonged 8 week hospitalization. Patient continued with suicidal ideation throughout the hospital stay therefore discharged here to inpatient [facility] for further treatment Schizoaffective disorder on clozapine. Recently readmitted to [facility] after medical stay where he was found to have severe sleep apnea. Schizoaffective disorder/depression Psychiatric team to follow Dysphagia and history of aspiration Patient with a tube feeding vital 1.5 at 85 mL/hour for 16 hours on as 18:00 off at 10:00. Free water flush 240 mg L every 4 hours Patient is at risk for aspiration. Out of bed for all meals, HOB elevated 30-45 degrees at all times. Patient did have repeat barium swallow in-hospital in May 2025 which demonstrated some improvement from previous, however he was still aspirating. Patient has a long history of dysphagia and swallowing studies and he is likely to be continued risk for aspiration and unlikely to be nutritional needs on a full p.o. diet. Patient was given p.o. intake for pleasure. He has been given ice cream and puddings in the hospital, he is aware of the risks of aspiration and is willing to accept that risk as he wants to eat soft foods. Psychiatry unsure whether patient fully understands the manifestations of risks of p.o. intake Speech language pathology to follow. Bedside ST swallow evaluation. Sleep apnea Continue CPAP at night HTN/CAD Continue lipitor 40 mgs daily Lisinopril 2.5 mgs daily Constipation Continue lactulose b.i.d. Encourage out of bed daily, water intake GERD Continue Pepcid 20 mg b.i.d. L4/L5 laminectomy Continue gabapentin for spinal neuropathic pain CKD Follow labs, avoid nephrotoxins Creatinine 0.9 on discharge BPH Continue tamsulosin Thank you for allowing me to participate in the care of this patient. Will continue to follow, please notify provider with any changes in patient's condition or concerns.
[2025-07-01 10:50] VITALS: BMI 23.7
[2025-07-01 10:55] LABS: Alanine Aminotransferase 15 U/L (0-40); Albumin Level 3.5 g/dL (3.5-5.0); Alkaline Phosphatase 114 U/L (39-117); Anion Gap 14 (12-20); Aspartate Amino Transferase 16 U/L (5-37); Blood Urea Nitrogen 24 mg/dL (9-16); Calcium 9.4 mg/dL (8.4-10.2); Carbon Dioxide 31 mmol/L (22-29); Chloride 103 mmol/L (96-108); Creatinine Clr Calc Pharmacy 80.1; Estimated Glomerular Filt Rate > 60; Potassium 4.5 mmol/L (3.3-5.1); Sodium 143 mmol/L (135-145); Total Protein 6.6 g/dL (6.5-8.0)
--- NOTE | 2025-07-01 11:20 | HO.PSYADMNOT ---
HPI Date of Service: 07/01/25 Chief Complaint: paranoid delusions Sources of Information: patient interviewed, chart reviewed and crisis/core team assessment reviewed HPI Subjective Notes: Mcdonnell Warning and Conditional Voluntary Narrative: Mr. Raymundo is a 70 year-old male with hx of schizophrenia stable for several years on clozaril who initially was admitted to [facility] in 03/2025 presented as lethargic and mute. He had covid/aspiration pneumonia. He had episodes of unresponsiveness negative for stroke/NC/seizure. He was seen by psychiatry. Apparently, his dose of clozapine was lowered earlier this year after back surgery which led to gradual increase in paranoid delusions. While he was inpatient, it was noted that he was a high risk for aspiration and g-tube was inserted. He was still allowed to have some po for pleasure but with understanding that some degree of food is being aspirated. Pt was admitted to on 06/26 for treatment of paranoid delusions towards brother and suicidal ideation. He was transferred to medical floor due to lethargy, episodes of apnea and difficulty managing excessive secretions. Pt had a sleep study and found to have severe sleep apnea with AHI of 32/hr, franklyn SaO2 of 78%. He was started on CPAP 5-20 cm auto mode. On the unit, pt presents as more paranoid and suspicious towards staff and this specifications writer. He reports he believes this specifications writer is orchestrating plan to steal his writings because I want him to be dependent on staff. He also reports he wants to famous poet and be next president of the unit states. He asks that g-tube be removed because he reports I've been practicing swallowing and is confident he is able to swallow with minimal issues. He also said if I have to live with a g-tube I'd rather be . When discussing and assessing his understanding of consequences of removing the g-tube, he seems to think that he would have years of quality life. When this specifications writer explained that complications of aspiration would include pneumonia, respiratory failure, sepsis and , pt states he has many plans in his life. He reports in terms of suicidal ideation, he does not feel like hurting himself and feels less depressed. He also reports he thinks his brother has been better. He reports he does not know who he can trust here but is open to work with the team. Past Psychiatric History: Inpatient: he had admission more than 30 years ago, then a year ago for suicidal ideation. OP: sees a psychologist for more than 20 years, [address]. José Miguel Jefferson. Past medication trials: mostly he has been stable on clozapine, recently added haldol while inpatient, lithium, depakote. Medical Evaluation Reviewed: Yes [facility] Family History: none (second cousin with schizophrenia) Social History: Pt was born in [place]. Grew up with parents and older brother. He went briefly to [facility] had a mental breakdown. He then went to [employer] and completed [employer]. He was , 4 years ago. He did not have children. Substance History: none Trauma History: divorce of parents Diagnostics Vital Signs (24Hr): Vital Signs - 24 hr 06/30/25 17:24 06/30/25 20:00 06/30/25 22:14 Temperature 97.1 F 97.5 F Pulse Rate 88 100 Respiratory Rate 18 16 13 Blood Pressure 139/81 138/80 Pulse Oximetry 99 99 Oxygen Delivery Method Room Air Room Air 07/01/25 08:00 Temperature 98.4 F Pulse Rate 92 Respiratory Rate 16 Blood Pressure 127/87 Pulse Oximetry 97 Oxygen Delivery Method Room Air BMI result Body Mass Index 23.7 Labs 07/01/25 10:35 Labs: Laboratory Results - last 48 hr 07/01/25 10:35 Absolute Neuts (auto) 5.1 Sodium 143 Potassium 4.5 Chloride 103 Carbon Dioxide 31 H Anion Gap 14 BUN 24 H Creatinine 0.94 Estim Creat Clear Calc 80.1 Estimated GFR > 60 Random Glucose 103 Calcium 9.4 D Total Bilirubin 0.4 AST 16 ALT 15 Alkaline Phosphatase 114 Total Protein 6.6 Albumin 3.5 Meds/Allergies Meds Home Medications ?Medication ?Instructions ?Recorded ?Confirmed ?Type acetaminophen 500 mg tablet 1,000 mg feeding tube TID 06/25/25 06/30/25 History atorvastatin 20 mg tablet 20 mg feeding tube DAILY 06/25/25 06/30/25 History bisacodyl 10 mg rectal suppository 10 mg OH DAILY PRN Constipation 06/25/25 06/30/25 History calcium carbonate 1,000 mg feeding tube TID PRN 06/25/25 06/30/25 History Heartburn clozapine 100 mg tablet 200 mg feeding tube BEDTIME 06/25/25 06/30/25 History clozapine 25 mg tablet 25 mg feeding tube QAM 06/25/25 06/30/25 History diclofenac sodium 1 % topical gel 2 g topical QID PRN Pain 06/25/25 06/30/25 History enoxaparin 40 mg/0.4 mL 40 mg subcut DAILY 06/25/25 06/30/25 History subcutaneous syringe famotidine 20 mg tablet 20 mg feeding tube BID 06/25/25 06/30/25 History gabapentin 100 mg capsule 100 mg feeding tube QAM 06/25/25 06/30/25 History gabapentin 100 mg capsule 300 mg feeding tube BEDTIME 06/25/25 06/30/25 History guaifenesin 100 mg/5 mL oral liquid 200 mg feeding tube Q4H PRN Cough 06/25/25 06/30/25 History haloperidol 1 mg tablet 1 mg feeding tube QAM 06/25/25 06/30/25 History haloperidol 1 mg tablet 3 mg feeding tube BEDTIME 06/25/25 06/30/25 History haloperidol 2 mg tablet 2 mg feeding tube BID PRN Agitation 06/25/25 06/30/25 History ipratropium 0.5 mg-albuterol 3 mg 3 ml inhalation Q4H PRN Shortness 06/25/25 06/30/25 History (2.5 mg base)/3 mL nebulization Of Breath soln lactulose 10 gram/15 mL oral 20 g OH BID 06/25/25 06/30/25 History solution lidocaine 4 % topical patch 1 patch topical DAILY 06/25/25 06/30/25 History multivitamin with minerals 15 ml feeding tube DAILY 06/25/25 06/30/25 History polyethylene glycol 3350 17 gram 17 g feeding tube BID 06/25/25 06/30/25 History oral powder packet (Miralax) ramelteon 8 mg tablet 8 mg PO BEDTIME 06/25/25 06/30/25 History simethicone 80 mg chewable tablet 80 mg PO Q6H PRN Dyspepsia 06/25/25 06/30/25 History tamsulosin 0.4 mg capsule 0.4 mg PO BEDTIME 06/25/25 06/30/25 History trazodone 150 mg tablet 150 mg feeding tube BEDTIME 06/25/25 06/30/25 History valproic acid (as sodium salt) 250 500 mg feeding tube BID 06/25/25 06/30/25 History mg/5 mL oral solution Allergies Allergies Allergy/AdvReac Type Severity Reaction Status Date / Time No Known Allergies Allergy Verified 06/25/25 21:33 Mental Status Exam Mental Status Exam Narrative: Appearance: wearing casual clothing, fair hygiene, in NAD. Behavior: guarded and suspicious Psychomotor: resting tremors of both hands noted. Speech: clear, normal rate/rhythm/volume, spontaneous TP: mostly linear TC: grandiose delusions of marrying a famous poet and being president. Mood: angry Affect: congruent, suspicious and paranoid. SI: reports less suicidal ideation. HI: none VH/AH: possible auditory and visual hallucinations such as seeing brother as computer chip. Delusions:increase paranoid delusions towards staff, along with grandiose delusions of wanting to run for president and marrying a famous poet. Insight/judgment: some insight into recognizing he has schizophrenia but less as to identifying symptoms of his illness. Memory/cog: alert, oriented x 4. not formally tested. Assessment & Plan Assessment & Plan (1) Schizophrenia: Status: Acute Qualifiers: Schizophrenia type: unspecified Qualified Code(s): F20.9 - Schizophrenia, unspecified Code(s): F20.9 - Schizophrenia, unspecified Plan Mr. Raymundo is a 70 year-old male with hx of schizophrenia who initially was transferred from [facility] to [facility] after prolonged medical admission due to pt presenting with episodes of lethargy, complicated by covid, aspiration pneumonia and exacerbation of psychiatric condition including increase paranoid delusions towards his brother which then led to him feeling suicidal. He went to medical floor due to lethargy and apnea and difficulty managing excessive secretions. He was found to have severe sleep apnea. He was started on CPAP 5-20 cm auto mode. He is now back on [facility], presenting more paranoid than first time, accusatory and mistrustful of staff and this specifications writer. He also presents with grandiose delusions of wanting to be president and erotomanic delusions of marrying a famous poet he does not know but some how is certain she wants to be with him too. Speech therapy continues to recommend G-tube due to severe risk of aspiration. Pt demands that g-tube be removed but after further assessment of his understanding of current medical condition and consequences of not having it but does not seem to understand that life expectancy would significantly shorten given complications of aspiration, leading to pneumonia, respiratory failure, sepsis and . Suspect clozapine contributing to dysphagia. 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 Concern in terms of increasing clozapine and worsening dysphagia along with other side effects including drooling, constipation. He is on low dose haldol although he has parkinsonism- we could add second antipsychotic that is lower potency. Will call brother to discuss options as pt does not seem to fully understand medical conditions, show appreciation of risk versus benefit despite being able to verbalize a preference/choice. PLAN 1. Admit to S1, CV, 5 minutes checks. 2. continue clozapine 25mg g-tube daily, 200mg g-tube qhs (will check levels), depakote 500mg g-tube BID (will recheck levels). continue haldol 1mg g-tube daily and 3mg g-tube qhs. 3. depakote level am before morning dose. 4. start scopolamine patch q72h 5. obtain collateral information 6. aftercare planning. Patient educated on: diagnosis and medication risk/benefits Informed Consent: does not understand Reason for continued inpatient stay Substantial Risk for: inability to function Statement Statement: I have reviewed the history and physical and performed a pertinent examination on my patient. No changes have occurred unless specified. If the History and Physical was not performed prior to admission, the Hospitalist's service will be consulted for completing the admission physical. Time Spent With Patient Time: Total time managing care of this patient today ____ minutes.
--- NOTE | 2025-07-01 13:12 | MHC.SLORD ---
Speech Language Pathology Order Status: No indication for MBSS given pt had one recently at another facility, recc was for tube feeds, PO for pleasure with understanding of risks. STACK ATTENDANT tx to be ordered if indicated d/t nature and significance of pt dysphagia.
[2025-07-01 20:00] VITALS: BP 123/79; PULSE 94; RESP 16; TEMP 36.8; O2SAT 98
[2025-07-01 23:22] VITALS: PULSE 99; RESP 16; O2SAT 99
[2025-07-02 07:00] VITALS: BMI 21.5
[2025-07-02 08:00] VITALS: BP 129/73; PULSE 109; RESP 14; TEMP 36.6; O2SAT 97
[2025-07-02] MEDS: Multivitamin with Minerals Liq 15 ML LIQUID G-TUBE (09:46)
[2025-07-02] MEDS: Valproic Acid Liquid 250 MG/5 ML SOLUTION 500 MG G-TUBE ×2 (09:47→20:05)
--- NOTE | 2025-07-02 17:17 | MHC.EVENTN ---
Addendum entered by Taty Trammell RN 07/02/25 18:25: Per pt's request, brother Delvin Beyer updated via phone about fall. Original Note: At 1710 patient was witness sliding out of the W/C landing infront of the W/C on his buttocks. He stated he hit his right knee and elbow, skin intact on right elbow but he has a tony size abrassion on his right knee. He was sitting on a pillow in the W/C, when placed in another W/C he was given a gel cushion and foot pedals. V/S [id number]. Practioner notified, sign builder supervisor notified.
--- NOTE | 2025-07-02 18:12 | HO.PSYCHPN ---
Subjective Subjective Date of Service: 07/02/25 Reason For Visit: paranoid delusions Subjective Notes: Conditional Voluntary Healthcare Proxy: Yes Interim History: Pt reports he suspects this technical report writer is behind the disappearance of his writing. 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 Pt also continues to report that he wants the g-tube out. He does not seem to fully understand consequences of taking it out at this point. He reports feeling less depressed and denies SI/HI. He reports shoulder pain. His mobility is very limited. Spoke with brother who is HCP- Delvin, updated him on current presentation. including paranoid towards staff, wanting to have g-tube out immediately without fully understanding consequences of doing so. Review of Systems Review of Systems Pt denies abdominal pain. No SOB. Noted drooling. No chest pain. NO SOB. No difficulty breathing. Mental Status Exam Mental Status Exam Narrative: Appearance: wearing casual clothing, fair hygiene, in NAD. Behavior: guarded and suspicious Psychomotor: resting tremors of both hands noted. Speech: clear, normal rate/rhythm/volume, spontaneous TP: mostly linear TC: grandiose delusions of marrying a famous poet and being president. Mood: angry Affect: congruent, suspicious and paranoid. SI: reports less suicidal ideation. HI: none VH/AH: possible auditory and visual hallucinations such as seeing brother as computer chip. Delusions:increase paranoid delusions towards staff, along with grandiose delusions of wanting to run for president and marrying a famous poet. Insight/judgment: some insight into recognizing he has schizophrenia but less as to identifying symptoms of his illness. Memory/cog: alert, oriented x 4. not formally tested. Diagnostics Vital Signs (24Hr): Vital Signs - 24 hr 07/01/25 20:00 07/01/25 23:22 07/02/25 08:00 Temperature 98.2 F 97.9 F Pulse Rate 94 109 H Respiratory Rate 16 16 14 Blood Pressure 123/79 129/73 Pulse Oximetry 98 97 Oxygen Delivery Method Room Air Room Air BMI result Body Mass Index 21.5 Labs 07/01/25 10:35 Labs: Laboratory Results - last 48 hr 07/01/25 10:35 Absolute Neuts (auto) 5.1 Sodium 143 Potassium 4.5 Chloride 103 Carbon Dioxide 31 H Anion Gap 14 BUN 24 H Creatinine 0.94 Estim Creat Clear Calc 80.1 Estimated GFR > 60 Random Glucose 103 Calcium 9.4 D Total Bilirubin 0.4 AST 16 ALT 15 Alkaline Phosphatase 114 Total Protein 6.6 Albumin 3.5 Medications Medications Current Medications Acetaminophen (Acetaminophen 325 Mg Tablet) 975 mg G-TUBE TID [facility] Last Admin: 07/02/25 14:50 Dose: 975 mg Albuterol/Ipratropium (Albuterol/Iprat 2.5/0.5mg 3 Ml Ampul.Neb) 3 ml INHALE Q4H PRN PRN Reason: Shortness of Breath Albuterol/Ipratropium (Albuterol/Iprat 2.5/0.5mg 3 Ml Ampul.Neb) 3 ml INHALE RQ4H WHILE AWAKE PRN PRN Reason: sob Atorvastatin Calcium (Atorvastatin Calcium 40 Mg Tablet) 40 mg G-TUBE BEDTIME [facility] Bisacodyl (Bisacodyl 10 Mg Supp.Rect) 10 mg [place] DAILY PRN PRN Reason: Constipation Calcium Carbonate (Calcium Carbonate 750 Mg Tab.Chew) 750 mg G-TUBE TID PRN PRN Reason: Heartburn Capsaicin (Capsaicin 0.025% Cream 60 Gm Tube) 1 appl TOPICAL TID PRN; Protocol PRN Reason: Pain, Moderate(Pain Scale 4-6) Clozapine (Clozapine 100 Mg Tablet) 200 mg G-TUBE BEDTIME [facility] Last Admin: 07/01/25 20:20 Dose: 200 mg Clozapine (Clozapine 25 Mg Tablet) 25 mg G-TUBE DAILY [facility] Last Admin: 07/02/25 09:45 Dose: 25 mg Famotidine (Famotidine 20 Mg Tablet) 20 mg G-TUBE BID [facility] Last Admin: 07/02/25 09:45 Dose: 20 mg Gabapentin (Gabapentin 300 Mg Capsule) 300 mg G-TUBE BEDTIME [facility] Last Admin: 07/01/25 20:21 Dose: 300 mg Gabapentin (Gabapentin 100 Mg Capsule) 100 mg G-TUBE DAILY [facility] Last Admin: 07/02/25 09:45 Dose: 100 mg Guaifenesin (Guaifenesin 200 Mg/10 Ml 10 Ml Liquid) 10 ml G-TUBE Q4H PRN PRN Reason: Cough Haloperidol (Haloperidol 1 Mg Tablet) 2 mg G-TUBE BID PRN PRN Reason: Agitation Haloperidol (Haloperidol 1 Mg Tablet) 1 mg G-TUBE DAILY [facility] Last Admin: 07/02/25 09:46 Dose: 1 mg Haloperidol (Haloperidol 1 Mg Tablet) 3 mg G-TUBE BEDTIME [facility] Last Admin: 07/01/25 20:21 Dose: 3 mg Lactulose (Lactulose 20 Gm/30 Ml Solution) 20 gm [place] BID [facility] Last Admin: 07/02/25 09:48 Dose: Not Given Lidocaine (Lidocaine 4 % Patch Adh..Patch) 1 patch TRANSDERMA DAILY [facility]; Protocol Last Admin: 07/02/25 10:08 Dose: Not Given Lisinopril (Lisinopril 2.5 Mg Tablet) 2.5 mg PO DAILY [facility]; Protocol Last Admin: 07/02/25 09:46 Dose: 2.5 mg Lorazepam (Lorazepam 0.5 Mg Tablet) 0.5 mg NG-TUBE TID PRN PRN Reason: anxiety Last Admin: 07/02/25 15:02 Dose: 0.5 mg Multivitamins/Minerals (Multivitamin With Minerals Liq 15 Ml Liquid) 15 ml G-TUBE DAILY [facility] Last Admin: 07/02/25 09:46 Dose: 15 ml Polyethylene Glycol (Polyethylene Glycol 3350 17 Gm Powd.Pack) 17 gm G-TUBE BID [facility] Last Admin: 07/02/25 09:48 Dose: 17 gm Scopolamine (Scopolamine 1.5 Mg Patch.Td.3) 1.5 mg EAR-BEHIND Q72H [facility] Last Admin: 07/01/25 13:18 Dose: 1.5 mg Simethicone (Simethicone 80 Mg Tab.Chew) 80 mg PO Q6H PRN PRN Reason: Dyspepsia Tamsulosin HCl (Tamsulosin Hcl 0.4 Mg Capsule) 0.4 mg PO BEDTIME [facility] Last Admin: 07/01/25 22:44 Dose: Not Given Tramadol HCl (Tramadol Hcl 50 Mg Tablet) 50 mg G-TUBE Q4H PRN PRN Reason: moderate, pain Last Admin: 07/02/25 14:50 Dose: 50 mg Trazodone HCl (Trazodone Hcl 50 Mg Tablet) 150 mg G-TUBE BEDTIME [facility] Last Admin: 07/01/25 20:20 Dose: 150 mg Valproic Acid (Valproic Acid Liquid 250 Mg/5 Ml Solution) 500 mg G-TUBE BID [facility] Last Admin: 07/02/25 09:47 Dose: 500 mg Allergies Allergies Allergy/AdvReac Type Severity Reaction Status Date / Time No Known Allergies Allergy Verified 06/25/25 21:33 Assessment & Plan Assessment & Plan (1) Schizophrenia: Qualifiers: Schizophrenia type: unspecified Qualified Code(s): F20.9 - Schizophrenia, unspecified Status: Acute Code(s): F20.9 - Schizophrenia, unspecified Plan Mr. Raymundo is a 70 year-old male with hx of schizophrenia who initially was transferred from [facility] to [facility] after prolonged medical admission due to pt presenting with episodes of lethargy, complicated by covid, aspiration pneumonia and exacerbation of psychiatric condition including increase paranoid delusions towards his brother which then led to him feeling suicidal. He went to medical floor due to lethargy and apnea and difficulty managing excessive secretions. He was found to have severe sleep apnea. He was started on CPAP 5-20 cm auto mode. He is now back on sergio unit, presenting more paranoid than first time, accusatory and mistrustful of staff and this technical report writer. He also presents with grandiose delusions of wanting to be president and erotomanic delusions of marrying a famous poet he does not know but some how is certain she wants to be with him too. Speech therapy continues to recommend G-tube due to severe risk of aspiration. Pt demands that g-tube be removed but after further assessment of his understanding of current medical condition and consequences of not having it but does not seem to understand that life expectancy would significantly shorten given complications of aspiration, leading to pneumonia, respiratory failure, sepsis and . Suspect clozapine contributing to dysphagia. 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 Concern in terms of increasing clozapine and worsening dysphagia along with other side effects including drooling, constipation. He is on low dose haldol although he has parkinsonism- we could add second antipsychotic that is lower potency. Will call brother to discuss options as pt does not seem to fully understand medical conditions, show appreciation of risk versus benefit despite being able to verbalize a preference/choice. PLAN 07/02 noted very low level of depakote despite medication being given and dose should reflect higher level. Will check depakote level again tomorrow and adjust dose. concern also for clozapine level also going down if some is being lost in tubing, or however is being metabolized. invoke HCP. per brother it appears HCP was affirmed by the court- we don't have copy of this. Reason for continued inpatient stay Substantial Risk for: inability to function Time Spent With Patient Time: Total time managing care of this patient today ____ minutes.
[2025-07-02 20:00] VITALS: BP 114/69; PULSE 94; RESP 15; TEMP 35.8; O2SAT 97
[2025-07-03 08:00] VITALS: BP 120/60; PULSE 108; TEMP 36.2; O2SAT 96
[2025-07-03] MEDS: Multivitamin with Minerals Liq 15 ML LIQUID G-TUBE (10:02)
[2025-07-03] MEDS: Lidocaine 4 % Patch ADH..PATCH 1 PATCH TRANSDERMA (10:02)
[2025-07-03] MEDS: Valproic Acid Liquid 250 MG/5 ML SOLUTION 500 MG G-TUBE (10:03)
--- NOTE | 2025-07-03 11:07 | MHC.CLN ---
F/U PATIENT WITH DYSPHAGIA AND HX ASPIRATION. REQUIRES NUTRITION/HYDRATION VIA PEG. TOLERATING TUBE FEED AT MAX GOAL RATE. CONTINUE MAX GOAL RATE VITAL 1.5 AT 85 ML PER HOUR X 16 HOURS (ON AT 18:00 HOURS, OFF AT 10:00 HOURS) FREE WATER FLUSH 240 ML Q 4 HOURS. PROVIDES 2040 KCAL (28 KCALS/KG), 91.8 G PROTEIN (1.3 G/KG), 2479 TOTAL ML FREE WATER FROM FORMULA AND FLUSH (34.1 ML/KG). FOLLOW FOR TUBE FEED TOLERANCE. USED WEIGHT=72.6 KG FOR ESTIMATED NEEDS.
--- NOTE | 2025-07-03 13:35 | PC.NURSE ---
Patient missed 4 hours of tube feed while waiting for new tubing to be delivered to unit. Provider and Dietary aware.
--- NOTE | 2025-07-03 15:32 | HO.PSYCHPN ---
Subjective Subjective Date of Service: 07/03/25 Reason For Visit: paranoid delusions Subjective Notes: Conditional Voluntary Interim History: Pt slept through the night. He reports this brief writer is behind conspiracy to steal his writings because according to pt, this brief writer is obsessed or of [place] descendant. He reports he does not feel as depressed and sad as when he first came here last Sunday. We discussed working with Speech and see if he would benefit from swallowing exercises. Depakote level is low despite getting 500mg G-tube BID dose, unclear if some lost in tubing. will increase dose of depakote to 1000mg g-tube BID, increase clozapine to 50mg g-tube am and 200mg qhs. Spoke with brother who is HCP- Delvin, updated him on current presentation. including paranoid towards staff, wanting to have g-tube out immediately without fully understanding consequences of doing so. Review of Systems Review of Systems Pt denies abdominal pain. No SOB. Noted drooling. No chest pain. NO SOB. No difficulty breathing. Mental Status Exam Mental Status Exam Narrative: Appearance: wearing casual clothing, fair hygiene, in NAD. Behavior: guarded and suspicious Psychomotor: resting tremors of both hands noted. Speech: clear, normal rate/rhythm/volume, spontaneous TP: mostly linear TC: grandiose delusions of marrying a famous poet and being president. Mood: angry Affect: congruent, suspicious and paranoid. SI: reports less suicidal ideation. HI: none VH/AH: possible auditory and visual hallucinations such as seeing brother as computer chip. Delusions:increase paranoid delusions towards staff, along with grandiose delusions of wanting to run for president and marrying a famous poet. Insight/judgment: some insight into recognizing he has schizophrenia but less as to identifying symptoms of his illness. Memory/cog: alert, oriented x 4. not formally tested. Diagnostics Vital Signs (24Hr): Vital Signs - 24 hr 07/02/25 20:00 07/03/25 08:00 Temperature 96.4 F L 97.1 F Pulse Rate 94 108 H Respiratory Rate 15 Blood Pressure 114/69 120/60 Pulse Oximetry 97 96 Oxygen Delivery Method Room Air Room Air BMI result Body Mass Index 21.5 Labs 07/01/25 10:35 Labs: Laboratory Results - last 48 hr 07/03/25 07:55 Valproic Acid 22.8 L Medications Medications Current Medications Acetaminophen (Acetaminophen 325 Mg Tablet) 975 mg G-TUBE TID [facility] Last Admin: 07/03/25 15:22 Dose: 975 mg Albuterol/Ipratropium (Albuterol/Iprat 2.5/0.5mg 3 Ml Ampul.Neb) 3 ml INHALE Q4H PRN PRN Reason: Shortness of Breath Albuterol/Ipratropium (Albuterol/Iprat 2.5/0.5mg 3 Ml Ampul.Neb) 3 ml INHALE RQ4H WHILE AWAKE PRN PRN Reason: sob Atorvastatin Calcium (Atorvastatin Calcium 40 Mg Tablet) 40 mg G-TUBE BEDTIME [facility] Last Admin: 07/02/25 20:06 Dose: 40 mg Bisacodyl (Bisacodyl 10 Mg Supp.Rect) 10 mg [place] DAILY PRN PRN Reason: Constipation Calcium Carbonate (Calcium Carbonate 750 Mg Tab.Chew) 750 mg G-TUBE TID PRN PRN Reason: Heartburn Capsaicin (Capsaicin 0.025% Cream 60 Gm Tube) 1 appl TOPICAL TID PRN; Protocol PRN Reason: Pain, Moderate(Pain Scale 4-6) Clozapine (Clozapine 100 Mg Tablet) 200 mg G-TUBE BEDTIME [facility] Last Admin: 07/02/25 20:06 Dose: 200 mg Clozapine (Clozapine 25 Mg Tablet) 25 mg G-TUBE DAILY [facility] Last Admin: 07/03/25 10:05 Dose: 25 mg Famotidine (Famotidine 20 Mg Tablet) 20 mg G-TUBE BID [facility] Last Admin: 07/03/25 10:03 Dose: 20 mg Gabapentin (Gabapentin 300 Mg Capsule) 300 mg G-TUBE BEDTIME [facility] Last Admin: 07/02/25 20:06 Dose: 300 mg Gabapentin (Gabapentin 100 Mg Capsule) 100 mg G-TUBE DAILY [facility] Last Admin: 07/03/25 10:05 Dose: 100 mg Guaifenesin (Guaifenesin 200 Mg/10 Ml 10 Ml Liquid) 10 ml G-TUBE Q4H PRN PRN Reason: Cough Haloperidol (Haloperidol 1 Mg Tablet) 2 mg G-TUBE BID PRN PRN Reason: Agitation Haloperidol (Haloperidol 1 Mg Tablet) 1 mg G-TUBE DAILY [facility] Last Admin: 07/03/25 10:05 Dose: 1 mg Haloperidol (Haloperidol 1 Mg Tablet) 3 mg G-TUBE BEDTIME [facility] Last Admin: 07/02/25 20:05 Dose: 3 mg Lactulose (Lactulose 20 Gm/30 Ml Solution) 20 gm [place] BID [facility] Last Admin: 07/03/25 10:05 Dose: 20 gm Lidocaine (Lidocaine 4 % Patch Adh..Patch) 1 patch TRANSDERMA DAILY [facility]; Protocol Last Admin: 07/03/25 10:02 Dose: 1 patch Lisinopril (Lisinopril 2.5 Mg Tablet) 2.5 mg PO DAILY [facility]; Protocol Last Admin: 07/03/25 10:03 Dose: 2.5 mg Lorazepam (Lorazepam 0.5 Mg Tablet) 0.5 mg NG-TUBE TID PRN PRN Reason: anxiety Last Admin: 07/02/25 15:02 Dose: 0.5 mg Multivitamins/Minerals (Multivitamin With Minerals Liq 15 Ml Liquid) 15 ml G-TUBE DAILY [facility] Last Admin: 07/03/25 10:02 Dose: 15 ml Polyethylene Glycol (Polyethylene Glycol 3350 17 Gm Powd.Pack) 17 gm G-TUBE BID [facility] Last Admin: 07/03/25 10:02 Dose: 17 gm Scopolamine (Scopolamine 1.5 Mg Patch.Td.3) 1.5 mg EAR-BEHIND Q72H [facility] Last Admin: 07/01/25 13:18 Dose: 1.5 mg Simethicone (Simethicone 80 Mg Tab.Chew) 80 mg G-TUBE Q6H PRN PRN Reason: Dyspepsia Tamsulosin HCl (Tamsulosin Hcl 0.4 Mg Capsule) 0.4 mg PO BEDTIME [facility] Last Admin: 07/03/25 00:15 Dose: Not Given Tramadol HCl (Tramadol Hcl 50 Mg Tablet) 50 mg G-TUBE Q4H PRN PRN Reason: moderate, pain Last Admin: 07/03/25 11:49 Dose: 50 mg Trazodone HCl (Trazodone Hcl 50 Mg Tablet) 150 mg G-TUBE BEDTIME [facility] Last Admin: 07/02/25 20:06 Dose: 150 mg Valproic Acid (Valproic Acid Liquid 250 Mg/5 Ml Solution) 1,000 mg G-TUBE BID [facility] Allergies Allergies Allergy/AdvReac Type Severity Reaction Status Date / Time No Known Allergies Allergy Verified 06/25/25 21:33 Assessment & Plan Assessment & Plan (1) Schizophrenia: Qualifiers: Schizophrenia type: unspecified Qualified Code(s): F20.9 - Schizophrenia, unspecified Status: Acute Code(s): F20.9 - Schizophrenia, unspecified Plan Mr. Raymundo is a 70 year-old male with hx of schizophrenia who initially was transferred from [facility] to [facility] after prolonged medical admission due to pt presenting with episodes of lethargy, complicated by covid, aspiration pneumonia and exacerbation of psychiatric condition including increase paranoid delusions towards his brother which then led to him feeling suicidal. He went to medical floor due to lethargy and apnea and difficulty managing excessive secretions. He was found to have severe sleep apnea. He was started on CPAP 5-20 cm auto mode. He is now back on sergio unit, presenting more paranoid than first time, accusatory and mistrustful of staff and this brief writer. He also presents with grandiose delusions of wanting to be president and erotomanic delusions of marrying a famous poet he does not know but some how is certain she wants to be with him too. Speech therapy continues to recommend G-tube due to severe risk of aspiration. Pt demands that g-tube be removed but after further assessment of his understanding of current medical condition and consequences of not having it but does not seem to understand that life expectancy would significantly shorten given complications of aspiration, leading to pneumonia, respiratory failure, sepsis and . Suspect clozapine contributing to dysphagia. 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 Concern in terms of increasing clozapine and worsening dysphagia along with other side effects including drooling, constipation. He is on low dose haldol although he has parkinsonism- we could add second antipsychotic that is lower potency. Will call brother to discuss options as pt does not seem to fully understand medical conditions, show appreciation of risk versus benefit despite being able to verbalize a preference/choice. PLAN 07/02 noted very low level of depakote despite medication being given and dose should reflect higher level. Will check depakote level again tomorrow and adjust dose. concern also for clozapine level also going down if some is being lost in tubing, or however is being metabolized. invoke HCP. per brother it appears HCP was affirmed by the court- we don't have copy of this. 07/03 Depakote level (22.8) is low despite getting 500mg G-tube BID dose, unclear if some lost in tubing. will increase dose of depakote to 1000mg g-tube BID, increase clozapine to 50mg g-tube am and 200mg qhs. Reason for continued inpatient stay Substantial Risk for: inability to function Time Spent With Patient Time: Total time managing care of this patient today ____ minutes.
--- NOTE | 2025-07-03 15:39 | HO.HCP ---
Health Care Proxy Invocation Health Care Proxy Declaration: I, Marialuisa Serrano , on the date cited below, have determined that, ____Carter Raymundo , lacks the capacity to make or communicate, informed health care decision. This determination is made in accordance with accepted standards of medical judgment and pursuant to [place], the [facility] Care Proxy Law. The cause, nature, extent and probable duration of the patient's inapacity are described below: Cause:acute psychosis and delusions Nature:schizophrenia Extent:reassess in 6 weeks or sooner if psychiatric symptoms improve Probable Duration of Patient's Incapacity: reassess in 6 weeks
[2025-07-03 20:00] VITALS: BP 117/67; PULSE 68; RESP 16; TEMP 36.4; O2SAT 97
[2025-07-03] MEDS: Valproic Acid Liquid 250 MG/5 ML SOLUTION 1000 MG G-TUBE (21:14)
[2025-07-04 08:00] VITALS: BP 118/72; PULSE 99; RESP 16; TEMP 36.5; O2SAT 97
[2025-07-04] MEDS: Multivitamin with Minerals Liq 15 ML LIQUID G-TUBE (09:00)
[2025-07-04] MEDS: Lidocaine 4 % Patch ADH..PATCH 1 PATCH TRANSDERMA (09:00)
[2025-07-04] MEDS: Valproic Acid Liquid 250 MG/5 ML SOLUTION 1000 MG G-TUBE ×2 (09:00→21:23)
[2025-07-04 20:00] VITALS: RESP 16
--- NOTE | 2025-07-04 23:42 | P.PNPSI_ITS ---
Subjective Subjective Date of Service: 07/04/25 Reason For Visit: paranoid delusions Subjective Notes: Conditional Voluntary Interim History: Patient was seen in his room, lying on his bed. He was irritable on approach. He stayed that he was feeling frustrated, he stated that he was frustrated because he was promised that he could go to the common area today and he has yet to do so. He states that he's angry about still being in the hospital. He denies SI/HI/AVH. He reports adequately. Staff noted that patient has been experiencing incontinence, and needing two person assists in management of hygiene. Medication Compliance: Yes Attending Groups: No Review of Systems Acute medical concerns: No Medical Review of Systems: unchanged Mental Status Exam Mental Status Exam Narrative: Appearance: wearing casual clothing, fair hygiene, in NAD. Behavior: guarded and suspicious Psychomotor: resting tremors of both hands noted. Speech: clear, normal rate/rhythm/volume, spontaneous TP: mostly linear TC: grandiose delusions of marrying a famous poet and being president. Mood: frustrated Affect: congruent, suspicious and paranoid. SI: reports less suicidal ideation. HI: none VH/AH: denied today Delusions:paranois towards staff Insight/judgment: impaired Memory/cog: oriented to person, place, year, month, day Diagnostics Vital Signs (24Hr): Vital Signs - 24 hr 07/04/25 08:00 07/04/25 20:00 Temperature 97.7 F Pulse Rate 99 Respiratory Rate 16 16 Blood Pressure 118/72 Pulse Oximetry 97 Oxygen Delivery Method Room Air BMI result Body Mass Index 21.5 Labs 07/01/25 10:35 Labs: Laboratory Results - last 48 hr 07/03/25 07:55 Valproic Acid 22.8 L Medications Medications Current Medications Acetaminophen (Acetaminophen 325 Mg Tablet) 975 mg G-TUBE TID [facility] Last Admin: 07/04/25 21:20 Dose: 975 mg Albuterol/Ipratropium (Albuterol/Iprat 2.5/0.5mg 3 Ml Ampul.Neb) 3 ml INHALE Q4H PRN PRN Reason: Shortness of Breath Albuterol/Ipratropium (Albuterol/Iprat 2.5/0.5mg 3 Ml Ampul.Neb) 3 ml INHALE RQ4H WHILE AWAKE PRN PRN Reason: sob Atorvastatin Calcium (Atorvastatin Calcium 40 Mg Tablet) 40 mg G-TUBE BEDTIME [facility] Last Admin: 07/04/25 21:23 Dose: 40 mg Bisacodyl (Bisacodyl 10 Mg Supp.Rect) 10 mg DC DAILY PRN PRN Reason: Constipation Calcium Carbonate (Calcium Carbonate 750 Mg Tab.Chew) 750 mg G-TUBE TID PRN PRN Reason: Heartburn Capsaicin (Capsaicin 0.025% Cream 60 Gm Tube) 1 appl TOPICAL TID PRN; Protocol PRN Reason: Pain, Moderate(Pain Scale 4-6) Clozapine (Clozapine 100 Mg Tablet) 200 mg G-TUBE BEDTIME [facility] Last Admin: 07/04/25 21:22 Dose: 200 mg Clozapine (Clozapine 25 Mg Tablet) 50 mg G-TUBE DAILY [facility] Last Admin: 07/04/25 09:01 Dose: 50 mg Famotidine (Famotidine 20 Mg Tablet) 20 mg G-TUBE BID [facility] Last Admin: 07/04/25 21:22 Dose: 20 mg Gabapentin (Gabapentin 300 Mg Capsule) 300 mg G-TUBE BEDTIME [facility] Last Admin: 07/04/25 21:23 Dose: 300 mg Gabapentin (Gabapentin 100 Mg Capsule) 100 mg G-TUBE DAILY [facility] Last Admin: 07/04/25 09:01 Dose: 100 mg Guaifenesin (Guaifenesin 200 Mg/10 Ml 10 Ml Liquid) 10 ml G-TUBE Q4H PRN PRN Reason: Cough Haloperidol (Haloperidol 1 Mg Tablet) 2 mg G-TUBE BID PRN PRN Reason: Agitation Haloperidol (Haloperidol 1 Mg Tablet) 1 mg G-TUBE DAILY [facility] Last Admin: 07/04/25 09:01 Dose: 1 mg Haloperidol (Haloperidol 1 Mg Tablet) 3 mg G-TUBE BEDTIME [facility] Last Admin: 07/04/25 21:22 Dose: 3 mg Lactulose (Lactulose 20 Gm/30 Ml Solution) 20 gm DC BID [facility] Last Admin: 07/04/25 22:24 Dose: Not Given Lidocaine (Lidocaine 4 % Patch Adh..Patch) 1 patch TRANSDERMA DAILY [facility]; Protocol Last Admin: 07/04/25 09:00 Dose: 1 patch Lisinopril (Lisinopril 2.5 Mg Tablet) 2.5 mg PO DAILY [facility]; Protocol Last Admin: 07/04/25 09:01 Dose: 2.5 mg Lorazepam (Lorazepam 1 Mg Tablet) 1 mg NG-TUBE TID PRN PRN Reason: anxiety Last Admin: 07/04/25 09:00 Dose: 1 mg Multivitamins/Minerals (Multivitamin With Minerals Liq 15 Ml Liquid) 15 ml G- TUBE DAILY [facility] Last Admin: 07/04/25 09:00 Dose: 15 ml Polyethylene Glycol (Polyethylene Glycol 3350 17 Gm Powd.Pack) 17 gm G-TUBE BID [facility] Last Admin: 07/04/25 22:24 Dose: Not Given Scopolamine (Scopolamine 1.5 Mg Patch.Td.3) 1.5 mg EAR-BEHIND Q72H [facility] Last Admin: 07/04/25 12:52 Dose: 1.5 mg Simethicone (Simethicone 80 Mg Tab.Chew) 80 mg G-TUBE Q6H PRN PRN Reason: Dyspepsia Tamsulosin HCl (Tamsulosin Hcl 0.4 Mg Capsule) 0.4 mg PO BEDTIME [facility] Last Admin: 07/04/25 21:22 Dose: 0.4 mg Tramadol HCl (Tramadol Hcl 50 Mg Tablet) 50 mg G-TUBE Q4H PRN PRN Reason: moderate, pain Last Admin: 07/04/25 12:52 Dose: 50 mg Trazodone HCl (Trazodone Hcl 50 Mg Tablet) 150 mg G-TUBE BEDTIME [facility] Last Admin: 07/04/25 21:22 Dose: 150 mg Valproic Acid (Valproic Acid Liquid 250 Mg/5 Ml Solution) 1,000 mg G-TUBE BID [facility] Last Admin: 07/04/25 21:23 Dose: 1,000 mg Allergies Allergies Allergy/AdvReac Type Severity Reaction Status Date / Time No Known Allergies Allergy Verified 06/25/25 21:33 Assessment & Plan Assessment & Plan (1) Schizophrenia: Qualifiers: Schizophrenia type: unspecified Qualified Code(s): F20.9 - Schizophrenia, unspecified Status: Acute Code(s): F20.9 - Schizophrenia, unspecified Plan Mr. Raymundo is a 70 year-old male with hx of schizophrenia who initially was transferred from [facility] to [facility] after prolonged medical admission due to pt presenting with episodes of lethargy, complicated by covid, aspiration pneumonia and exacerbation of psychiatric condition including increase paranoid delusions towards his brother which then led to him feeling suicidal. He went to medical floor due to lethargy and apnea and difficulty managing excessive secretions. He was found to have severe sleep apnea. He was started on CPAP 5- 20 cm auto mode. He is now back on sergio unit, presenting more paranoid than first time, accusatory and mistrustful of staff and this administrative underwriter. He also presents with grandiose delusions of wanting to be president and erotomanic delusions of marrying a famous poet he does not know but some how is certain she wants to be with him too. Speech therapy continues to recommend G-tube due to severe risk of aspiration. Pt demands that g-tube be removed but after further assessment of his understanding of current medical condition and consequences of not having it but does not seem to understand that life expectancy would significantly shorten given complications of aspiration, leading to pneumonia, respiratory failure, sepsis and . Suspect clozapine contributing to dysphagia. 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 Concern in terms of increasing clozapine and worsening dysphagia along with other side effects including drooling, constipation. He is on low dose haldol although he has parkinsonism- we could add second antipsychotic that is lower potency. Will call brother to discuss options as pt does not seem to fully understand medical conditions, show appreciation of risk versus benefit despite being able to verbalize a preference/choice. PLAN 07/02 noted very low level of depakote despite medication being given and dose should reflect higher level. Will check depakote level again tomorrow and adjust dose. concern also for clozapine level also going down if some is being lost in tubing, or however is being metabolized. invoke HCP. per brother it appears HCP was affirmed by the court- we don't have copy of this. 07/03 Depakote level (22.8) is low despite getting 500mg G-tube BID dose, unclear if some lost in tubing. will increase dose of depakote to 1000mg g-tube BID, increase clozapine to 50mg g-tube am and 200mg qhs. Patient educated on: diagnosis Informed Consent: further education needed Reason for continued inpatient stay Substantial Risk for: inability to function and rapid decompensation Time Spent With Patient Time: Total time managing care of this patient today _15___ minutes.
[2025-07-05 07:53] VITALS: BP 118/64; PULSE 96; RESP 16; TEMP 36.6; O2SAT 97
[2025-07-05] MEDS: Valproic Acid Liquid 250 MG/5 ML SOLUTION 1000 MG G-TUBE ×2 (09:35→21:35)
[2025-07-05] MEDS: Lidocaine 4 % Patch ADH..PATCH 1 PATCH TRANSDERMA (09:37)
[2025-07-05] MEDS: Multivitamin with Minerals Liq 15 ML LIQUID G-TUBE (09:38)
--- NOTE | 2025-07-05 12:04 | P.PNPSI_ITS ---
Subjective Subjective Date of Service: 07/05/25 Reason For Visit: paranoid delusions Subjective Notes: Conditional Voluntary Healthcare Proxy: Yes Guardianship: No Medical Problems Affecting Mental Status: No Interim History: Seen resting in his room. He made illogical statements about needing $500,000. He endorsed low back pain rated 5-10 severity. Did not appear to be in any acute distress. He denies SI/HI/AVH. Medication Compliance: Intermittent Side effects from medications: No Attending Groups: No Review of Systems Acute medical concerns: No Medical Review of Systems: unchanged Review of Systems Review of Systems Yes all other systems are reviewed and are negative Mental Status Exam Mental Status Exam Narrative: Appearance: wearing casual clothing, fair hygiene, in NAD. Behavior: guarded and suspicious Psychomotor: resting tremors of both hands noted. Speech: clear, normal rate/rhythm/volume, spontaneous TP: disorganized TC: grandiose themes of large sums of money Mood: okay Affect: blunted SI: denies HI: denies VH/AH: denied today Delusions: paranoia towards staff Insight/judgment: impaired Memory/cog: oriented to person, time; not oriented to place, situation Diagnostics Vital Signs (24Hr): Vital Signs - 24 hr 07/04/25 20:00 07/05/25 07:53 Temperature 97.8 F Pulse Rate 96 Respiratory Rate 16 16 Blood Pressure 118/64 Pulse Oximetry 97 Oxygen Delivery Method Room Air BMI result Body Mass Index 21.5 Labs 07/01/25 10:35 Medications Medications Current Medications Acetaminophen (Acetaminophen 325 Mg Tablet) 975 mg G-TUBE TID [facility] Last Admin: 07/05/25 09:38 Dose: 975 mg Albuterol/Ipratropium (Albuterol/Iprat 2.5/0.5mg 3 Ml Ampul.Neb) 3 ml INHALE Q4H PRN PRN Reason: Shortness of Breath Albuterol/Ipratropium (Albuterol/Iprat 2.5/0.5mg 3 Ml Ampul.Neb) 3 ml INHALE RQ4H WHILE AWAKE PRN PRN Reason: sob Atorvastatin Calcium (Atorvastatin Calcium 40 Mg Tablet) 40 mg G-TUBE BEDTIME [facility] Last Admin: 07/04/25 21:23 Dose: 40 mg Bisacodyl (Bisacodyl 10 Mg Supp.Rect) 10 mg FL DAILY PRN PRN Reason: Constipation Calcium Carbonate (Calcium Carbonate 750 Mg Tab.Chew) 750 mg G-TUBE TID PRN PRN Reason: Heartburn Capsaicin (Capsaicin 0.025% Cream 60 Gm Tube) 1 appl TOPICAL TID PRN; Protocol PRN Reason: Pain, Moderate(Pain Scale 4-6) Clozapine (Clozapine 100 Mg Tablet) 200 mg G-TUBE BEDTIME [facility] Last Admin: 07/04/25 21:22 Dose: 200 mg Clozapine (Clozapine 25 Mg Tablet) 50 mg G-TUBE DAILY [facility] Last Admin: 07/05/25 09:39 Dose: 50 mg Famotidine (Famotidine 20 Mg Tablet) 20 mg G-TUBE BID [facility] Last Admin: 07/05/25 09:39 Dose: 20 mg Gabapentin (Gabapentin 300 Mg Capsule) 300 mg G-TUBE BEDTIME [facility] Last Admin: 07/04/25 21:23 Dose: 300 mg Gabapentin (Gabapentin 100 Mg Capsule) 100 mg G-TUBE DAILY [facility] Last Admin: 07/05/25 09:39 Dose: 100 mg Guaifenesin (Guaifenesin 200 Mg/10 Ml 10 Ml Liquid) 10 ml G-TUBE Q4H PRN PRN Reason: Cough Haloperidol (Haloperidol 1 Mg Tablet) 2 mg G-TUBE BID PRN PRN Reason: Agitation Haloperidol (Haloperidol 1 Mg Tablet) 1 mg G-TUBE DAILY [facility] Last Admin: 07/05/25 09:39 Dose: 1 mg Haloperidol (Haloperidol 1 Mg Tablet) 3 mg G-TUBE BEDTIME [facility] Last Admin: 07/04/25 21:22 Dose: 3 mg Lactulose (Lactulose 20 Gm/30 Ml Solution) 20 gm [place] BID [facility] Last Admin: 07/05/25 09:51 Dose: 20 gm Lidocaine (Lidocaine 4 % Patch Adh..Patch) 1 patch TRANSDERMA DAILY [facility]; Protocol Last Admin: 07/05/25 09:37 Dose: 1 patch Lisinopril (Lisinopril 2.5 Mg Tablet) 2.5 mg PO DAILY [facility]; Protocol Last Admin: 07/05/25 09:39 Dose: 2.5 mg Lorazepam (Lorazepam 1 Mg Tablet) 1 mg NG-TUBE TID PRN PRN Reason: anxiety Last Admin: 07/05/25 06:26 Dose: 1 mg Multivitamins/Minerals (Multivitamin With Minerals Liq 15 Ml Liquid) 15 ml G- TUBE DAILY [facility] Last Admin: 07/05/25 09:38 Dose: 15 ml Polyethylene Glycol (Polyethylene Glycol 3350 17 Gm Powd.Pack) 17 gm G-TUBE BID [facility] Last Admin: 07/05/25 09:37 Dose: 17 gm Scopolamine (Scopolamine 1.5 Mg Patch.Td.3) 1.5 mg EAR-BEHIND Q72H [facility] Last Admin: 07/04/25 12:52 Dose: 1.5 mg Simethicone (Simethicone 80 Mg Tab.Chew) 80 mg G-TUBE Q6H PRN PRN Reason: Dyspepsia Tamsulosin HCl (Tamsulosin Hcl 0.4 Mg Capsule) 0.4 mg PO BEDTIME [facility] Last Admin: 07/04/25 21:22 Dose: 0.4 mg Tramadol HCl (Tramadol Hcl 50 Mg Tablet) 50 mg G-TUBE Q4H PRN PRN Reason: moderate, pain Last Admin: 07/05/25 09:48 Dose: 50 mg Trazodone HCl (Trazodone Hcl 50 Mg Tablet) 150 mg G-TUBE BEDTIME [facility] Last Admin: 07/04/25 21:22 Dose: 150 mg Valproic Acid (Valproic Acid Liquid 250 Mg/5 Ml Solution) 1,000 mg G-TUBE BID [facility] Last Admin: 07/05/25 09:35 Dose: 1,000 mg Allergies Allergies Allergy/AdvReac Type Severity Reaction Status Date / Time No Known Allergies Allergy Verified 06/25/25 21:33 Assessment & Plan Assessment & Plan (1) Schizophrenia: Qualifiers: Schizophrenia type: unspecified Qualified Code(s): F20.9 - Schizophrenia, unspecified Status: Acute Code(s): F20.9 - Schizophrenia, unspecified Plan Mr. Raymundo is a 70 year-old male with hx of schizophrenia who initially was transferred from [facility] to [facility] after prolonged medical admission due to pt presenting with episodes of lethargy, complicated by covid, aspiration pneumonia and exacerbation of psychiatric condition including increase paranoid delusions towards his brother which then led to him feeling suicidal. He went to medical floor due to lethargy and apnea and difficulty managing excessive secretions. He was found to have severe sleep apnea. He was started on CPAP 5- 20 cm auto mode. He is now back on sergio unit, presenting more paranoid than first time, accusatory and mistrustful of staff and this magazine writer. He also presents with grandiose delusions of wanting to be president and erotomanic delusions of marrying a famous poet he does not know but some how is certain she wants to be with him too. Speech therapy continues to recommend G-tube due to severe risk of aspiration. Pt demands that g-tube be removed but after further assessment of his understanding of current medical condition and consequences of not having it but does not seem to understand that life expectancy would significantly shorten given complications of aspiration, leading to pneumonia, respiratory failure, sepsis and . Suspect clozapine contributing to dysphagia. 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 Concern in terms of increasing clozapine and worsening dysphagia along with other side effects including drooling, constipation. He is on low dose haldol although he has parkinsonism- we could add second antipsychotic that is lower potency. Will call brother to discuss options as pt does not seem to fully understand medical conditions, show appreciation of risk versus benefit despite being able to verbalize a preference/choice. PLAN 07/02 noted very low level of depakote despite medication being given and dose should reflect higher level. Will check depakote level again tomorrow and adjust dose. concern also for clozapine level also going down if some is being lost in tubing, or however is being metabolized. invoke HCP. per brother it appears HCP was affirmed by the court- we don't have copy of this. 07/03 Depakote level (22.8) is low despite getting 500mg G-tube BID dose, unclear if some lost in tubing. will increase dose of depakote to 1000mg g-tube BID, increase clozapine to 50mg g-tube am and 200mg qhs. 07/04, 07/05: no changes today, check VPA level this week Patient educated on: diagnosis Informed Consent: does not understand and further education needed Reason for continued inpatient stay Substantial Risk for: inability to function and rapid decompensation Time Spent With Patient Time: Total time managing care of this patient today _15___ minutes.
[2025-07-05 20:05] VITALS: BP 118/77; PULSE 94; RESP 15; TEMP 35.8; O2SAT 97
--- NOTE | 2025-07-06 08:43 | HO.PSYCHPN ---
Subjective Subjective Date of Service: 07/06/25 Reason For Visit: paranoid delusions Subjective Notes: Conditional Voluntary Healthcare Proxy: Yes Interim History: Pt slept through the night. He reports he thinks this procedure writer is not truthful about his swallowing and is making him believe that it is worse than it is. He reports he thinks this procedure writer has plan to obstruct him from becoming president. He reports he wants to have g-tube remove immediately and does not believe that will cause any significant problems to his health. He also upset about brother being decision maker at this time since HCP has been invoked. He is taking medications. Will recheck level of depakote tomorrow AM. He denies depressed mood and SI. He also reports his brother has been better in the past few weeks. Review of Systems Review of Systems Pt denies abdominal pain. No SOB. Noted drooling. No chest pain. NO SOB. No difficulty breathing. Yes all other systems are reviewed and are negative Mental Status Exam Mental Status Exam Narrative: Appearance: wearing casual clothing, fair hygiene, in NAD. Behavior: guarded and suspicious Psychomotor: resting tremors of both hands noted. Speech: clear, normal rate/rhythm/volume, spontaneous TP: disorganized TC: grandiose delusions of working to become president. Mood: okay Affect: blunted SI: denies HI: denies VH/AH: denied today Delusions: paranoia towards staff Insight/judgment: impaired Memory/cog: oriented to person, time; not oriented to place, situation Diagnostics Vital Signs (24Hr): Vital Signs - 24 hr 07/05/25 20:05 Temperature 96.5 F L Pulse Rate 94 Respiratory Rate 15 Blood Pressure 118/77 Pulse Oximetry 97 Oxygen Delivery Method Room Air BMI result Body Mass Index 21.5 Labs 07/01/25 10:35 Medications Medications Current Medications Acetaminophen (Acetaminophen 325 Mg Tablet) 975 mg G-TUBE TID [facility] Last Admin: 07/05/25 21:35 Dose: 975 mg Albuterol/Ipratropium (Albuterol/Iprat 2.5/0.5mg 3 Ml Ampul.Neb) 3 ml INHALE Q4H PRN PRN Reason: Shortness of Breath Albuterol/Ipratropium (Albuterol/Iprat 2.5/0.5mg 3 Ml Ampul.Neb) 3 ml INHALE RQ4H WHILE AWAKE PRN PRN Reason: sob Atorvastatin Calcium (Atorvastatin Calcium 40 Mg Tablet) 40 mg G-TUBE BEDTIME [facility] Last Admin: 07/05/25 21:37 Dose: 40 mg Bisacodyl (Bisacodyl 10 Mg Supp.Rect) 10 mg NE DAILY PRN PRN Reason: Constipation Calcium Carbonate (Calcium Carbonate 750 Mg Tab.Chew) 750 mg G-TUBE TID PRN PRN Reason: Heartburn Capsaicin (Capsaicin 0.025% Cream 60 Gm Tube) 1 appl TOPICAL TID PRN; Protocol PRN Reason: Pain, Moderate(Pain Scale 4-6) Clozapine (Clozapine 100 Mg Tablet) 200 mg G-TUBE BEDTIME [facility] Last Admin: 07/05/25 21:36 Dose: 200 mg Clozapine (Clozapine 25 Mg Tablet) 50 mg G-TUBE DAILY [facility] Last Admin: 07/05/25 09:39 Dose: 50 mg Famotidine (Famotidine 20 Mg Tablet) 20 mg G-TUBE BID [facility] Last Admin: 07/05/25 21:36 Dose: 20 mg Gabapentin (Gabapentin 300 Mg Capsule) 300 mg G-TUBE BEDTIME [facility] Last Admin: 07/05/25 21:36 Dose: 300 mg Gabapentin (Gabapentin 100 Mg Capsule) 100 mg G-TUBE DAILY [facility] Last Admin: 07/05/25 09:39 Dose: 100 mg Guaifenesin (Guaifenesin 200 Mg/10 Ml 10 Ml Liquid) 10 ml G-TUBE Q4H PRN PRN Reason: Cough Haloperidol (Haloperidol 1 Mg Tablet) 2 mg G-TUBE BID PRN PRN Reason: Agitation Haloperidol (Haloperidol 1 Mg Tablet) 1 mg G-TUBE DAILY [facility] Last Admin: 07/05/25 09:39 Dose: 1 mg Haloperidol (Haloperidol 1 Mg Tablet) 3 mg G-TUBE BEDTIME [facility] Last Admin: 07/05/25 21:36 Dose: 3 mg Lactulose (Lactulose 20 Gm/30 Ml Solution) 20 gm NE BID [facility] Last Admin: 07/05/25 21:35 Dose: 20 gm Lidocaine (Lidocaine 4 % Patch Adh..Patch) 1 patch TRANSDERMA DAILY [facility]; Protocol Last Admin: 07/05/25 09:37 Dose: 1 patch Lisinopril (Lisinopril 2.5 Mg Tablet) 2.5 mg PO DAILY [facility]; Protocol Last Admin: 07/05/25 09:39 Dose: 2.5 mg Lorazepam (Lorazepam 1 Mg Tablet) 1 mg NG-TUBE TID PRN PRN Reason: anxiety Last Admin: 07/05/25 21:36 Dose: 1 mg Multivitamins/Minerals (Multivitamin With Minerals Liq 15 Ml Liquid) 15 ml G-TUBE DAILY [facility] Last Admin: 07/05/25 09:38 Dose: 15 ml Polyethylene Glycol (Polyethylene Glycol 3350 17 Gm Powd.Pack) 17 gm G-TUBE BID [facility] Last Admin: 07/05/25 21:35 Dose: 17 gm Scopolamine (Scopolamine 1.5 Mg Patch.Td.3) 1.5 mg EAR-BEHIND Q72H [facility] Last Admin: 07/04/25 12:52 Dose: 1.5 mg Simethicone (Simethicone 80 Mg Tab.Chew) 80 mg G-TUBE Q6H PRN PRN Reason: Dyspepsia Tamsulosin HCl (Tamsulosin Hcl 0.4 Mg Capsule) 0.4 mg PO BEDTIME [facility] Last Admin: 07/05/25 21:36 Dose: 0.4 mg Tramadol HCl (Tramadol Hcl 50 Mg Tablet) 50 mg G-TUBE Q4H PRN PRN Reason: moderate, pain Last Admin: 07/05/25 21:37 Dose: 50 mg Trazodone HCl (Trazodone Hcl 50 Mg Tablet) 150 mg G-TUBE BEDTIME [facility] Last Admin: 07/05/25 21:36 Dose: 150 mg Valproic Acid (Valproic Acid Liquid 250 Mg/5 Ml Solution) 1,000 mg G-TUBE BID [facility] Last Admin: 07/05/25 21:35 Dose: 1,000 mg Allergies Allergies Allergy/AdvReac Type Severity Reaction Status Date / Time No Known Allergies Allergy Verified 06/25/25 21:33 Assessment & Plan Assessment & Plan (1) Schizophrenia: Qualifiers: Schizophrenia type: unspecified Qualified Code(s): F20.9 - Schizophrenia, unspecified Status: Acute Code(s): F20.9 - Schizophrenia, unspecified Plan Mr. Raymundo is a 70 year-old male with hx of schizophrenia who initially was transferred from [facility] to [facility] after prolonged medical admission due to pt presenting with episodes of lethargy, complicated by covid, aspiration pneumonia and exacerbation of psychiatric condition including increase paranoid delusions towards his brother which then led to him feeling suicidal. He went to medical floor due to lethargy and apnea and difficulty managing excessive secretions. He was found to have severe sleep apnea. He was started on CPAP 5-20 cm auto mode. He is now back on sergio unit, presenting more paranoid than first time, accusatory and mistrustful of staff and this procedure writer. He also presents with grandiose delusions of wanting to be president and erotomanic delusions of marrying a famous poet he does not know but some how is certain she wants to be with him too. Speech therapy continues to recommend G-tube due to severe risk of aspiration. Pt demands that g-tube be removed but after further assessment of his understanding of current medical condition and consequences of not having it but does not seem to understand that life expectancy would significantly shorten given complications of aspiration, leading to pneumonia, respiratory failure, sepsis and . Suspect clozapine contributing to dysphagia. 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 Concern in terms of increasing clozapine and worsening dysphagia along with other side effects including drooling, constipation. He is on low dose haldol although he has parkinsonism- we could add second antipsychotic that is lower potency. Will call brother to discuss options as pt does not seem to fully understand medical conditions, show appreciation of risk versus benefit despite being able to verbalize a preference/choice. PLAN 07/02 noted very low level of depakote despite medication being given and dose should reflect higher level. Will check depakote level again tomorrow and adjust dose. concern also for clozapine level also going down if some is being lost in tubing, or however is being metabolized. invoke HCP. per brother it appears HCP was affirmed by the court- we don't have copy of this. 07/03 Depakote level (22.8) is low despite getting 500mg G-tube BID dose, unclear if some lost in tubing. will increase dose of depakote to 1000mg g-tube BID, increase clozapine to 50mg g-tube am and 200mg qhs. 07/04, 07/05: no changes today, check VPA level this week 07/06 continue medications, will check depakote tomorrow AM. Reason for continued inpatient stay Substantial Risk for: inability to function Time Spent With Patient Time: Total time managing care of this patient today ____ minutes.
[2025-07-06 09:36] VITALS: BP 113/63; PULSE 98; RESP 18; TEMP 35.9; O2SAT 97
[2025-07-06] MEDS: Multivitamin with Minerals Liq 15 ML LIQUID G-TUBE (09:44)
[2025-07-06] MEDS: Valproic Acid Liquid 250 MG/5 ML SOLUTION 1000 MG G-TUBE ×2 (09:44→20:48)
[2025-07-06] MEDS: Lidocaine 4 % Patch ADH..PATCH 1 PATCH TRANSDERMA (09:45)
--- NOTE | 2025-07-06 11:42 | MHC.SLORD ---
Speech Language Pathology Order Status: PRIMER AND POWDER CANNING LEADER consulted with MD and RN today, pt is heavily medicated at this time. Ice chips were permitted last week, currently on hold d/t pt overall physical status. Pt remains NPO strict, with pleasure feedings on hold as well d/t elevated risk for aspiration. Pt is unable to comprehend restrictions, PRIMER AND POWDER CANNING LEADER will discuss NPO recc with pt primary caregiver. PRIMER AND POWDER CANNING LEADER continues to work with pt in coordination with geripsych team.
--- NOTE | 2025-07-06 12:02 | MHC.CLN ---
F/U PATIENT WITH DYSPHAGIA AND HX ASPIRATION. REQUIRES NUTRITION/HYDRATION VIA PEG. TOLERATING TUBE FEED AT MAX GOAL RATE. CONTINUE MAX GOAL RATE VITAL 1.5 AT 85 ML PER HOUR X 16 HOURS (ON AT 18:00 HOURS, OFF AT 10:00 HOURS) FREE WATER FLUSH 240 ML Q 4 HOURS. PROVIDES 2040 KCAL (28 KCALS/KG), 91.8 G PROTEIN (1.3 G/KG), 2479 TOTAL ML FREE WATER FROM FORMULA AND FLUSH (34.1 ML/KG). FOLLOW FOR TUBE FEED TOLERANCE. WEIGHT ON 06/30/25=77 KG. NOT IN LINE WITH MOST RECENT WEIGHT HX. 06/25/25=72.6 KG. 07/02/25=70 KG. DOES NOT QUALIFY SIGNIFICANT WEIGHT LOSS DURING ADMISSION.
--- NOTE | 2025-07-06 19:23 | PC.NURSE ---
Lactulose administered via g-tube
[2025-07-06 20:00] VITALS: BP 120/66; PULSE 100; RESP 16; TEMP 36.1; O2SAT 98
[2025-07-06 21:52] VITALS: BP 122/66
[2025-07-07 08:00] VITALS: BP 134/75; PULSE 94; RESP 16; O2SAT 99
[2025-07-07] MEDS: Valproic Acid Liquid 250 MG/5 ML SOLUTION 1000 MG G-TUBE ×2 (09:20→17:00)
[2025-07-07] MEDS: Multivitamin with Minerals Liq 15 ML LIQUID G-TUBE (09:23)
--- NOTE | 2025-07-07 11:37 | P.PNPSI_ITS ---
Subjective Subjective Date of Service: 07/07/25 Reason For Visit: paranoid delusions Subjective Notes: Conditional Voluntary Healthcare Proxy: Yes Interim History: Pt slept through the night. He presents as less paranoid towards brother. He is upset because he wants g-tube remove and this has not happened. He accuses this engineering writer for lying to him as he believes his swallowing is not bad and he would be safe to eat regular food. He reports some sedation. He has not had ativan nor tramadol and depakote level continues to be low (22) despite increase in dose Review of Systems Review of Systems Pt denies abdominal pain. No SOB. Noted drooling. No chest pain. NO SOB. No difficulty breathing. Yes all other systems are reviewed and are negative Mental Status Exam Mental Status Exam Narrative: Appearance: wearing casual clothing, fair hygiene, in NAD. Behavior: guarded and suspicious Psychomotor: resting tremors of both hands noted. Speech: clear, normal rate/rhythm/volume, spontaneous TP: disorganized TC: grandiose delusions of working to become president. Mood: okay Affect: blunted SI: denies HI: denies VH/AH: denied today Delusions: paranoia towards staff Insight/judgment: impaired Memory/cog: oriented to person, time; not oriented to place, situation Diagnostics Vital Signs (24Hr): Vital Signs - 24 hr 07/06/25 20:00 07/06/25 21:52 07/07/25 08:00 Temperature 97 F Pulse Rate 100 94 Respiratory Rate 16 16 Blood Pressure 120/66 122/66 134/75 Pulse Oximetry 98 99 Oxygen Delivery Method Room Air BMI result Body Mass Index 21.5 Labs 07/01/25 10:35 Labs: Laboratory Results - last 48 hr 07/07/25 08:00 Valproic Acid 33.1 L Medications Medications Current Medications Acetaminophen (Acetaminophen 325 Mg Tablet) 975 mg G-TUBE TID [facility] Last Admin: 07/07/25 09:20 Dose: 975 mg Albuterol/Ipratropium (Albuterol/Iprat 2.5/0.5mg 3 Ml Ampul.Neb) 3 ml INHALE Q4H PRN PRN Reason: Shortness of Breath Albuterol/Ipratropium (Albuterol/Iprat 2.5/0.5mg 3 Ml Ampul.Neb) 3 ml INHALE RQ4H WHILE AWAKE PRN PRN Reason: sob Atorvastatin Calcium (Atorvastatin Calcium 40 Mg Tablet) 40 mg G-TUBE BEDTIME [facility] Last Admin: 07/06/25 20:48 Dose: 40 mg Bisacodyl (Bisacodyl 10 Mg Supp.Rect) 10 mg [place] DAILY PRN PRN Reason: Constipation Calcium Carbonate (Calcium Carbonate 750 Mg Tab.Chew) 750 mg G-TUBE TID PRN PRN Reason: Heartburn Capsaicin (Capsaicin 0.025% Cream 60 Gm Tube) 1 appl TOPICAL TID PRN; Protocol PRN Reason: Pain, Moderate(Pain Scale 4-6) Clozapine (Clozapine 100 Mg Tablet) 200 mg G-TUBE BEDTIME [facility] Last Admin: 07/06/25 20:49 Dose: 200 mg Clozapine (Clozapine 25 Mg Tablet) 50 mg G-TUBE DAILY [facility] Last Admin: 07/07/25 09:23 Dose: 50 mg Doxazosin Mesylate (Doxazosin Mesylate 1 Mg Tablet) 1 mg PO BEDTIME [facility]; Protocol Last Admin: 07/06/25 21:52 Dose: 1 mg Famotidine (Famotidine 20 Mg Tablet) 20 mg G-TUBE BID [facility] Last Admin: 07/07/25 09:22 Dose: 20 mg Gabapentin (Gabapentin 300 Mg Capsule) 300 mg G-TUBE BEDTIME [facility] Last Admin: 07/06/25 20:48 Dose: 300 mg Gabapentin (Gabapentin 100 Mg Capsule) 100 mg G-TUBE DAILY [facility] Last Admin: 07/07/25 09:22 Dose: 100 mg Guaifenesin (Guaifenesin 200 Mg/10 Ml 10 Ml Liquid) 10 ml G-TUBE Q4H PRN PRN Reason: Cough Haloperidol (Haloperidol 1 Mg Tablet) 2 mg G-TUBE BID PRN PRN Reason: Agitation Haloperidol (Haloperidol 1 Mg Tablet) 1 mg G-TUBE DAILY [facility] Last Admin: 07/07/25 09:22 Dose: 1 mg Haloperidol (Haloperidol 1 Mg Tablet) 3 mg G-TUBE BEDTIME [facility] Last Admin: 07/06/25 20:50 Dose: 3 mg Lactulose (Lactulose 20 Gm/30 Ml Solution) 20 gm G-TUBE BID [facility] Last Admin: 07/07/25 09:24 Dose: 20 gm Lidocaine (Lidocaine 4 % Patch Adh..Patch) 1 patch TRANSDERMA DAILY [facility]; Protocol Last Admin: 07/07/25 10:38 Dose: Not Given Lisinopril (Lisinopril 2.5 Mg Tablet) 2.5 mg PO DAILY [facility]; Protocol Last Admin: 07/07/25 09:22 Dose: 2.5 mg Lorazepam (Lorazepam 0.5 Mg Tablet) 0.5 mg NG-TUBE TID PRN PRN Reason: anxiety Multivitamins/Minerals (Multivitamin With Minerals Liq 15 Ml Liquid) 15 ml G- TUBE DAILY [facility] Last Admin: 07/07/25 09:23 Dose: 15 ml Polyethylene Glycol (Polyethylene Glycol 3350 17 Gm Powd.Pack) 17 gm G-TUBE BID [facility] Last Admin: 07/07/25 09:20 Dose: 17 gm Scopolamine (Scopolamine 1.5 Mg Patch.Td.3) 1.5 mg EAR-BEHIND Q72H [facility] Last Admin: 07/04/25 12:52 Dose: 1.5 mg Simethicone (Simethicone 80 Mg Tab.Chew) 80 mg G-TUBE Q6H PRN PRN Reason: Dyspepsia Tramadol HCl (Tramadol Hcl 50 Mg Tablet) 50 mg G-TUBE Q4H PRN PRN Reason: moderate, pain Last Admin: 07/06/25 23:16 Dose: 50 mg Trazodone HCl (Trazodone Hcl 50 Mg Tablet) 150 mg G-TUBE BEDTIME [facility] Last Admin: 07/06/25 20:49 Dose: 150 mg Valproic Acid (Valproic Acid Liquid 250 Mg/5 Ml Solution) 1,000 mg G-TUBE BID [facility] Last Admin: 07/07/25 09:20 Dose: 1,000 mg Allergies Allergies Allergy/AdvReac Type Severity Reaction Status Date / Time No Known Allergies Allergy Verified 06/25/25 21:33 Assessment & Plan Assessment & Plan (1) Schizophrenia: Qualifiers: Schizophrenia type: unspecified Qualified Code(s): F20.9 - Schizophrenia, unspecified Status: Acute Code(s): F20.9 - Schizophrenia, unspecified Plan Mr. Raymundo is a 70 year-old male with hx of schizophrenia who initially was transferred from [facility] to [facility] after prolonged medical admission due to pt presenting with episodes of lethargy, complicated by covid, aspiration pneumonia and exacerbation of psychiatric condition including increase paranoid delusions towards his brother which then led to him feeling suicidal. He went to medical floor due to lethargy and apnea and difficulty managing excessive secretions. He was found to have severe sleep apnea. He was started on CPAP 5- 20 cm auto mode. He is now back on sergio unit, presenting more paranoid than first time, accusatory and mistrustful of staff and this engineering writer. He also presents with grandiose delusions of wanting to be president and erotomanic delusions of marrying a famous poet he does not know but some how is certain she wants to be with him too. Speech therapy continues to recommend G-tube due to severe risk of aspiration. Pt demands that g-tube be removed but after further assessment of his understanding of current medical condition and consequences of not having it but does not seem to understand that life expectancy would significantly shorten given complications of aspiration, leading to pneumonia, respiratory failure, sepsis and . Suspect clozapine contributing to dysphagia. 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 Concern in terms of increasing clozapine and worsening dysphagia along with other side effects including drooling, constipation. He is on low dose haldol although he has parkinsonism- we could add second antipsychotic that is lower potency. Will call brother to discuss options as pt does not seem to fully understand medical conditions, show appreciation of risk versus benefit despite being able to verbalize a preference/choice. PLAN 07/02 noted very low level of depakote despite medication being given and dose should reflect higher level. Will check depakote level again tomorrow and adjust dose. concern also for clozapine level also going down if some is being lost in tubing, or however is being metabolized. invoke HCP. per brother it appears HCP was affirmed by the court- we don't have copy of this. 07/03 Depakote level (22.8) is low despite getting 500mg G-tube BID dose, unclear if some lost in tubing. will increase dose of depakote to 1000mg g-tube BID, increase clozapine to 50mg g-tube am and 200mg qhs. 07/04, 07/05: no changes today, check VPA level this week 07/06 continue medications, will check depakote tomorrow AM. 07/07 d/c ativan. changed time of depakote so it does not consid with feeding time as it may be affecting absorption and thus levels. Reason for continued inpatient stay Substantial Risk for: inability to function Time Spent With Patient Time: Total time managing care of this patient today ____ minutes.
[2025-07-07 20:00] VITALS: BP 124/63; PULSE 100; RESP 16; TEMP 36.3; O2SAT 98
[2025-07-08 08:00] VITALS: BP 127/76; PULSE 102; RESP 16; O2SAT 98
[2025-07-08 08:28] LABS: Neut%MD 76.3 %; WBCANC 7.5 X10*3/uL
[2025-07-08] MEDS: Multivitamin with Minerals Liq 15 ML LIQUID G-TUBE (08:54)
[2025-07-08] MEDS: Valproic Acid Liquid 250 MG/5 ML SOLUTION 1000 MG G-TUBE ×2 (11:01→16:42)
--- NOTE | 2025-07-08 12:59 | MHC.SL.SWA ---
Speech Pathologist Impression: Severe dysphagia of unconfirmed etiology, Parkinson's considered most relative diagnosis exaccerbating current dysphagia Risk of Aspiration Due to: Dysphasia Diet Status: NPO strict Liquid Consistency and Strategies for Safe Swallow: Liquid Intake Recommendation: NPO Liquid Intake Strategies: Solid Food Consistency: Dietary Recommendations: NPO Additional Modifications to Solid Foods: Oral Medication Intake: NPO Please contact the pharmacy regarding appropriate crushable or liquid drug formulations that are available whenever modified delivery is recommended. Compensatory Strategies and Precautions to be Taken for Safe Swallow: Supervision While Eating and Drinking for Safe Swallow: Foods to Avoid: Swallowing Recommended Treatments: Recommendation for Speech: Inpatient Speech Therapy Speech Therapy through Rehab Facility Modified Barium Swallow Study - Inpatient Comment: Pt is more alert and attentive today, able to engage in conversation about reason he is NPO, expressing awareness that he must do exercises to strengthen the muscles of swallow mechanism. Pt has had prior DINING ROOM CASHIER intervention and his recall of specific exercises was remarkable. DINING ROOM CASHIER today provided handout with targeted exercises, recommending pt focus on the following four: 1. Effortful Swallow 2. [place] Maneauver 3. Yawn Stretch 4. Pitch [employer] DINING ROOM CASHIER recc pt attempt each exercise across 3 reps, twice per day. Pt expressed his motivation to strengthen muscles overall, agreeing that he is deconditioned at this time and feels he is ready to resume dysphagia treatment. RENTAL COORDINATOR and RN aware of exercise protocol reviewed and left with pt. DINING ROOM CASHIER will continue to follow for direct dysphagia treatment. Pt will need another MBSS prior to resuming any PO given nature and severity of dysphagia.elvie. Frequency/Duration: M-F Daily Date Range for Service Req: Timeline to reassess: Low Voltage Technician Clinican/Clinical Fellow: No Supervisory Statement: I have reviewed and agree with the student/clinical fellow's documentation: N/A Speech Language Pathologist: Kalyani Weaver M.S., CCC-DINING ROOM CASHIER
--- NOTE | 2025-07-08 14:13 | MHC.CLN ---
F/U PATIENT WITH DYSPHAGIA AND HX ASPIRATION. NPO AND REQUIRES NUTRITION/HYDRATION VIA PEG. TOLERATING TUBE FEED AT MAX GOAL RATE. CONTINUE MAX GOAL RATE VITAL 1.5 AT 85 ML PER HOUR X 16 HOURS (ON AT 18:00 HOURS, OFF AT 10:00 HOURS) FREE WATER FLUSH 240 ML Q 4 HOURS. PROVIDES 2040 KCAL (28 KCALS/KG), 91.8 G PROTEIN (1.3 G/KG), 2479 TOTAL ML FREE WATER FROM FORMULA AND FLUSH (34.1 ML/KG). FOLLOW FOR TUBE FEED TOLERANCE.
--- NOTE | 2025-07-08 19:33 | HO.PSYCHPN ---
Subjective Subjective Date of Service: 07/08/25 Reason For Visit: paranoid delusions Subjective Notes: Conditional Voluntary Healthcare Proxy: Yes Interim History: Pt slept through the night. He continues to present as less paranoid towards brother. He continues to express frustration about this financial underwriter not removing g-tube. He accuses this financial underwriter for lying to him as he believes his swallowing is not bad and he would be safe to eat regular food. He reports some sedation- although today appears more awake and not sedated. He has not had ativan nor tramadol and depakote level continues to be low (22) despite increase in dose. Review of Systems Review of Systems Pt denies abdominal pain. No SOB. Noted drooling. No chest pain. NO SOB. No difficulty breathing. Yes all other systems are reviewed and are negative Mental Status Exam Mental Status Exam Narrative: Appearance: wearing casual clothing, fair hygiene, in NAD. Behavior: guarded and suspicious Psychomotor: resting tremors of both hands noted. Speech: clear, normal rate/rhythm/volume, spontaneous TP: disorganized TC: grandiose delusions of working to become president. Mood: okay Affect: blunted SI: denies HI: denies VH/AH: denied today Delusions: paranoia towards staff Insight/judgment: impaired Memory/cog: oriented to person, time; not oriented to place, situation Diagnostics Vital Signs (24Hr): Vital Signs - 24 hr 07/07/25 20:00 07/08/25 08:00 Temperature 97.4 F Pulse Rate 100 102 H Respiratory Rate 16 16 Blood Pressure 124/63 127/76 Pulse Oximetry 98 98 Oxygen Delivery Method Room Air Room Air BMI result Body Mass Index 21.5 Labs 07/01/25 10:35 Labs: Laboratory Results - last 48 hr 07/07/25 07/08/25 08:00 07:56 Absolute Neuts (auto) 5.7 Valproic Acid 33.1 L Medications Medications Current Medications Acetaminophen (Acetaminophen 325 Mg Tablet) 975 mg G-TUBE TID [facility] Last Admin: 07/08/25 15:17 Dose: 975 mg Albuterol/Ipratropium (Albuterol/Iprat 2.5/0.5mg 3 Ml Ampul.Neb) 3 ml INHALE Q4H PRN PRN Reason: Shortness of Breath Albuterol/Ipratropium (Albuterol/Iprat 2.5/0.5mg 3 Ml Ampul.Neb) 3 ml INHALE RQ4H WHILE AWAKE PRN PRN Reason: sob Atorvastatin Calcium (Atorvastatin Calcium 40 Mg Tablet) 40 mg G-TUBE BEDTIME [facility] Last Admin: 07/07/25 20:34 Dose: 40 mg Bisacodyl (Bisacodyl 10 Mg Supp.Rect) 10 mg [place] DAILY PRN PRN Reason: Constipation Calcium Carbonate (Calcium Carbonate 750 Mg Tab.Chew) 750 mg G-TUBE TID PRN PRN Reason: Heartburn Capsaicin (Capsaicin 0.025% Cream 60 Gm Tube) 1 appl TOPICAL TID PRN; Protocol PRN Reason: Pain, Moderate(Pain Scale 4-6) Clozapine (Clozapine 25 Mg Tablet) 50 mg G-TUBE DAILY@1100 [facility] Last Admin: 07/08/25 11:00 Dose: 50 mg Clozapine (Clozapine 100 Mg Tablet) 200 mg G-TUBE DAILY@1700 [facility] Last Admin: 07/08/25 16:41 Dose: 200 mg Doxazosin Mesylate (Doxazosin Mesylate 1 Mg Tablet) 1 mg PO BEDTIME [facility]; Protocol Last Admin: 07/07/25 20:34 Dose: 1 mg Famotidine (Famotidine 20 Mg Tablet) 20 mg G-TUBE BID [facility] Last Admin: 07/08/25 08:55 Dose: 20 mg Gabapentin (Gabapentin 300 Mg Capsule) 300 mg G-TUBE BEDTIME [facility] Last Admin: 07/07/25 20:34 Dose: 300 mg Gabapentin (Gabapentin 100 Mg Capsule) 100 mg G-TUBE DAILY [facility] Last Admin: 07/08/25 08:55 Dose: 100 mg Guaifenesin (Guaifenesin 200 Mg/10 Ml 10 Ml Liquid) 10 ml G-TUBE Q4H PRN PRN Reason: Cough Haloperidol (Haloperidol 1 Mg Tablet) 2 mg G-TUBE BID PRN PRN Reason: Agitation Haloperidol (Haloperidol 1 Mg Tablet) 1 mg G-TUBE DAILY [facility] Last Admin: 07/08/25 08:56 Dose: 1 mg Haloperidol (Haloperidol 1 Mg Tablet) 3 mg G-TUBE BEDTIME [facility] Last Admin: 07/07/25 20:34 Dose: 3 mg Lidocaine (Lidocaine 4 % Patch Adh..Patch) 1 patch TRANSDERMA DAILY [facility]; Protocol Last Admin: 07/08/25 14:43 Dose: Not Given Lisinopril (Lisinopril 2.5 Mg Tablet) 2.5 mg PO DAILY [facility]; Protocol Last Admin: 07/08/25 08:55 Dose: 2.5 mg Multivitamins/Minerals (Multivitamin With Minerals Liq 15 Ml Liquid) 15 ml G-TUBE DAILY [facility] Last Admin: 07/08/25 08:54 Dose: 15 ml Polyethylene Glycol (Polyethylene Glycol 3350 17 Gm Powd.Pack) 17 gm G-TUBE DAILY [facility] Last Admin: 07/08/25 08:58 Dose: 17 gm Scopolamine (Scopolamine 1.5 Mg Patch.Td.3) 1.5 mg EAR-BEHIND Q72H [facility] Last Admin: 07/07/25 15:05 Dose: 1.5 mg Simethicone (Simethicone 80 Mg Tab.Chew) 80 mg G-TUBE Q6H PRN PRN Reason: Dyspepsia Tramadol HCl (Tramadol Hcl 50 Mg Tablet) 50 mg G-TUBE Q6H PRN PRN Reason: moderate, pain Trazodone HCl (Trazodone Hcl 50 Mg Tablet) 150 mg G-TUBE BEDTIME [facility] Last Admin: 07/07/25 20:34 Dose: 150 mg Valproic Acid (Valproic Acid Liquid 250 Mg/5 Ml Solution) 1,000 mg G-TUBE BID@1100,1700 [facility] Last Admin: 07/08/25 16:42 Dose: 1,000 mg Allergies Allergies Allergy/AdvReac Type Severity Reaction Status Date / Time No Known Allergies Allergy Verified 06/25/25 21:33 Assessment & Plan Assessment & Plan (1) Schizophrenia: Qualifiers: Schizophrenia type: unspecified Qualified Code(s): F20.9 - Schizophrenia, unspecified Status: Acute Code(s): F20.9 - Schizophrenia, unspecified Plan Mr. Raymundo is a 70 year-old male with hx of schizophrenia who initially was transferred from [facility] to [facility] after prolonged medical admission due to pt presenting with episodes of lethargy, complicated by covid, aspiration pneumonia and exacerbation of psychiatric condition including increase paranoid delusions towards his brother which then led to him feeling suicidal. He went to medical floor due to lethargy and apnea and difficulty managing excessive secretions. He was found to have severe sleep apnea. He was started on CPAP 5-20 cm auto mode. He is now back on sergio unit, presenting more paranoid than first time, accusatory and mistrustful of staff and this financial underwriter. He also presents with grandiose delusions of wanting to be president and erotomanic delusions of marrying a famous poet he does not know but some how is certain she wants to be with him too. Speech therapy continues to recommend G-tube due to severe risk of aspiration. Pt demands that g-tube be removed but after further assessment of his understanding of current medical condition and consequences of not having it but does not seem to understand that life expectancy would significantly shorten given complications of aspiration, leading to pneumonia, respiratory failure, sepsis and . Suspect clozapine contributing to dysphagia. 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 Concern in terms of increasing clozapine and worsening dysphagia along with other side effects including drooling, constipation. He is on low dose haldol although he has parkinsonism- we could add second antipsychotic that is lower potency. Will call brother to discuss options as pt does not seem to fully understand medical conditions, show appreciation of risk versus benefit despite being able to verbalize a preference/choice. PLAN 07/02 noted very low level of depakote despite medication being given and dose should reflect higher level. Will check depakote level again tomorrow and adjust dose. concern also for clozapine level also going down if some is being lost in tubing, or however is being metabolized. invoke HCP. per brother it appears HCP was affirmed by the court- we don't have copy of this. 07/03 Depakote level (22.8) is low despite getting 500mg G-tube BID dose, unclear if some lost in tubing. will increase dose of depakote to 1000mg g-tube BID, increase clozapine to 50mg g-tube am and 200mg qhs. 07/04, 07/05: no changes today, check VPA level this week 07/06 continue medications, will check depakote tomorrow AM. 07/07 d/c ativan, depakote level despite dose adjustment to 1000mg gtube BID continues to be low (33).change depakote to be given when he is not receiving feedings. 07/08 continue tx. Reason for continued inpatient stay Substantial Risk for: inability to function Time Spent With Patient Time: Total time managing care of this patient today ____ minutes.
[2025-07-08 19:50] VITALS: BP 125/65; PULSE 98; RESP 16; TEMP 36.6; O2SAT 98
[2025-07-08 22:54] LABS: Clozapine (Clozaril) 388 mcg/L
[2025-07-09 08:00] VITALS: BP 126/70; PULSE 91; RESP 16; TEMP 36.1; O2SAT 96
[2025-07-09] MEDS: Multivitamin with Minerals Liq 15 ML LIQUID G-TUBE (09:01)
[2025-07-09] MEDS: Lidocaine 4 % Patch ADH..PATCH 1 PATCH TRANSDERMA (09:01)
--- NOTE | 2025-07-09 09:06 | P.PNPSI_ITS ---
Subjective Subjective Date of Service: 07/09/25 Reason For Visit: paranoid delusions Subjective Notes: Conditional Voluntary Healthcare Proxy: Yes Interim History: Pt slept throught the night. He appears less paranoid towards staff and this mortgage or loan underwriter reporting that he realizes he was paranoid and suspicious but can see why this mortgage or loan underwriter was concerned about removing g-tube. He reports feeling less sedated. He has been taking medications as prescribed. He is much less paranoid towards his brother and accepting of his help. He also denies SI/HI. Medication Compliance: Yes Review of Systems Review of Systems Pt denies abdominal pain. No SOB. Noted drooling. No chest pain. NO SOB. No difficulty breathing. Yes all other systems are reviewed and are negative Mental Status Exam Mental Status Exam Narrative: Appearance: wearing casual clothing, fair hygiene, in NAD. Behavior: guarded and suspicious Psychomotor: resting tremors of both hands noted. Speech: clear, normal rate/rhythm/volume, spontaneous TP: disorganized TC: grandiose delusions of working to become president. Mood: okay Affect: blunted SI: denies HI: denies VH/AH: denied today Delusions: paranoia towards staff Insight/judgment: impaired Memory/cog: oriented to person, time; not oriented to place, situation Diagnostics Vital Signs (24Hr): Vital Signs - 24 hr 07/08/25 19:50 07/09/25 08:00 Temperature 98 F 97 F Pulse Rate 98 91 Respiratory Rate 16 16 Blood Pressure 125/65 126/70 Pulse Oximetry 98 96 Oxygen Delivery Method Room Air Room Air BMI result Body Mass Index 21.5 Labs 07/01/25 10:35 Labs: Laboratory Results - last 48 hr 07/05/25 07/08/25 08:01 07:56 Absolute Neuts (auto) 5.7 Clozapine 388 Norclozapine 104 Medications Medications Current Medications Acetaminophen (Acetaminophen 325 Mg Tablet) 975 mg G-TUBE TID [facility] Last Admin: 07/09/25 09:01 Dose: 975 mg Albuterol/Ipratropium (Albuterol/Iprat 2.5/0.5mg 3 Ml Ampul.Neb) 3 ml INHALE Q4H PRN PRN Reason: Shortness of Breath Albuterol/Ipratropium (Albuterol/Iprat 2.5/0.5mg 3 Ml Ampul.Neb) 3 ml INHALE RQ4H WHILE AWAKE PRN PRN Reason: sob Atorvastatin Calcium (Atorvastatin Calcium 40 Mg Tablet) 40 mg G-TUBE BEDTIME [facility] Last Admin: 07/08/25 21:28 Dose: 40 mg Bisacodyl (Bisacodyl 10 Mg Supp.Rect) 10 mg [place] DAILY PRN PRN Reason: Constipation Calcium Carbonate (Calcium Carbonate 750 Mg Tab.Chew) 750 mg G-TUBE TID PRN PRN Reason: Heartburn Capsaicin (Capsaicin 0.025% Cream 60 Gm Tube) 1 appl TOPICAL TID PRN; Protocol PRN Reason: Pain, Moderate(Pain Scale 4-6) Clozapine (Clozapine 25 Mg Tablet) 50 mg G-TUBE DAILY@1100 [facility] Last Admin: 07/08/25 11:00 Dose: 50 mg Clozapine (Clozapine 100 Mg Tablet) 200 mg G-TUBE DAILY@1700 [facility] Last Admin: 07/08/25 16:41 Dose: 200 mg Doxazosin Mesylate (Doxazosin Mesylate 1 Mg Tablet) 1 mg PO BEDTIME [facility]; Protocol Last Admin: 07/08/25 21:28 Dose: 1 mg Famotidine (Famotidine 20 Mg Tablet) 20 mg G-TUBE BID [facility] Last Admin: 07/09/25 09:01 Dose: 20 mg Gabapentin (Gabapentin 300 Mg Capsule) 300 mg G-TUBE BEDTIME [facility] Last Admin: 07/08/25 21:28 Dose: 300 mg Gabapentin (Gabapentin 100 Mg Capsule) 100 mg G-TUBE DAILY [facility] Last Admin: 07/09/25 09:01 Dose: 100 mg Guaifenesin (Guaifenesin 200 Mg/10 Ml 10 Ml Liquid) 10 ml G-TUBE Q4H PRN PRN Reason: Cough Haloperidol (Haloperidol 1 Mg Tablet) 2 mg G-TUBE BID PRN PRN Reason: Agitation Haloperidol (Haloperidol 1 Mg Tablet) 1 mg G-TUBE DAILY [facility] Last Admin: 07/09/25 09:02 Dose: 1 mg Haloperidol (Haloperidol 1 Mg Tablet) 3 mg G-TUBE BEDTIME [facility] Last Admin: 07/08/25 21:28 Dose: 3 mg Lidocaine (Lidocaine 4 % Patch Adh..Patch) 1 patch TRANSDERMA DAILY [facility]; Protocol Last Admin: 07/09/25 09:01 Dose: 1 patch Lisinopril (Lisinopril 2.5 Mg Tablet) 2.5 mg PO DAILY [facility]; Protocol Last Admin: 07/09/25 09:01 Dose: 2.5 mg Multivitamins/Minerals (Multivitamin With Minerals Liq 15 Ml Liquid) 15 ml G- TUBE DAILY [facility] Last Admin: 07/09/25 09:01 Dose: 15 ml Polyethylene Glycol (Polyethylene Glycol 3350 17 Gm Powd.Pack) 17 gm G-TUBE DAILY [facility] Last Admin: 07/09/25 09:03 Dose: Not Given Scopolamine (Scopolamine 1.5 Mg Patch.Td.3) 1.5 mg EAR-BEHIND Q72H [facility] Last Admin: 07/07/25 15:05 Dose: 1.5 mg Simethicone (Simethicone 80 Mg Tab.Chew) 80 mg G-TUBE Q6H PRN PRN Reason: Dyspepsia Tramadol HCl (Tramadol Hcl 50 Mg Tablet) 50 mg G-TUBE Q6H PRN PRN Reason: moderate, pain Last Admin: 07/09/25 09:02 Dose: 50 mg Trazodone HCl (Trazodone Hcl 50 Mg Tablet) 150 mg G-TUBE BEDTIME [facility] Last Admin: 07/08/25 21:29 Dose: 150 mg Valproic Acid (Valproic Acid Liquid 250 Mg/5 Ml Solution) 1,000 mg G-TUBE BID@1100,1700 [facility] Last Admin: 07/08/25 16:42 Dose: 1,000 mg Allergies Allergies Allergy/AdvReac Type Severity Reaction Status Date / Time No Known Allergies Allergy Verified 06/25/25 21:33 Assessment & Plan Assessment & Plan (1) Schizophrenia: Qualifiers: Schizophrenia type: unspecified Qualified Code(s): F20.9 - Schizophrenia, unspecified Status: Acute Code(s): F20.9 - Schizophrenia, unspecified Plan Mr. Raymundo is a 70 year-old male with hx of schizophrenia who initially was transferred from [facility] to [facility] after prolonged medical admission due to pt presenting with episodes of lethargy, complicated by covid, aspiration pneumonia and exacerbation of psychiatric condition including increase paranoid delusions towards his brother which then led to him feeling suicidal. He went to medical floor due to lethargy and apnea and difficulty managing excessive secretions. He was found to have severe sleep apnea. He was started on CPAP 5- 20 cm auto mode. He is now back on sergio unit, presenting more paranoid than first time, accusatory and mistrustful of staff and this mortgage or loan underwriter. He also presents with grandiose delusions of wanting to be president and erotomanic delusions of marrying a famous poet he does not know but some how is certain she wants to be with him too. Speech therapy continues to recommend G-tube due to severe risk of aspiration. Pt demands that g-tube be removed but after further assessment of his understanding of current medical condition and consequences of not having it but does not seem to understand that life expectancy would significantly shorten given complications of aspiration, leading to pneumonia, respiratory failure, sepsis and . Suspect clozapine contributing to dysphagia. 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 Concern in terms of increasing clozapine and worsening dysphagia along with other side effects including drooling, constipation. He is on low dose haldol although he has parkinsonism- we could add second antipsychotic that is lower potency. Will call brother to discuss options as pt does not seem to fully understand medical conditions, show appreciation of risk versus benefit despite being able to verbalize a preference/choice. PLAN 07/02 noted very low level of depakote despite medication being given and dose should reflect higher level. Will check depakote level again tomorrow and adjust dose. concern also for clozapine level also going down if some is being lost in tubing, or however is being metabolized. invoke HCP. per brother it appears HCP was affirmed by the court- we don't have copy of this. 07/03 Depakote level (22.8) is low despite getting 500mg G-tube BID dose, unclear if some lost in tubing. will increase dose of depakote to 1000mg g-tube BID, increase clozapine to 50mg g-tube am and 200mg qhs. 07/04, 07/05: no changes today, check VPA level this week 07/06 continue medications, will check depakote tomorrow AM. 07/07 d/c ativan, depakote level despite dose adjustment to 1000mg gtube BID continues to be low (33).change depakote to be given when he is not receiving feedings. 07/08 continue tx. 07/09 continue tx. Reason for continued inpatient stay Substantial Risk for: inability to function Time Spent With Patient Time: Total time managing care of this patient today ____ minutes.
[2025-07-09] MEDS: Valproic Acid Liquid 250 MG/5 ML SOLUTION 1000 MG G-TUBE ×2 (11:33→16:49)
[2025-07-09 20:00] VITALS: BP 123/69; PULSE 59; RESP 16; TEMP 36.2; O2SAT 98
[2025-07-10 08:00] VITALS: BP 128/77; PULSE 91; RESP 16; O2SAT 97
[2025-07-10] MEDS: Lidocaine 4 % Patch ADH..PATCH 1 PATCH TRANSDERMA (09:23)
[2025-07-10] MEDS: Multivitamin with Minerals Liq 15 ML LIQUID G-TUBE (09:24)
[2025-07-10] MEDS: Valproic Acid Liquid 250 MG/5 ML SOLUTION 1000 MG G-TUBE ×2 (11:06→17:06)
--- NOTE | 2025-07-10 12:20 | MHC.CLN ---
F/U PATIENT WITH DYSPHAGIA AND HX ASPIRATION. NPO AND REQUIRES NUTRITION/HYDRATION VIA PEG. TOLERATING TUBE FEED AT MAX GOAL RATE. CONTINUE MAX GOAL RATE VITAL 1.5 AT 85 ML PER HOUR X 16 HOURS (ON AT 18:00 HOURS, OFF AT 10:00 HOURS) FREE WATER FLUSH 240 ML Q 4 HOURS. PROVIDES 2040 KCAL (28 KCALS/KG), 91.8 G PROTEIN (1.3 G/KG), 2479 TOTAL ML FREE WATER FROM FORMULA AND FLUSH (34.1 ML/KG). FOLLOW FOR TUBE FEED TOLERANCE. TUBE FEEDING MAY LOWER ABSORPTION OF VALPROIC ACID AND ADMIN SHOULD BE . COMMUNICATED WITH PROVIDER VIA TIGERTEXT.
--- NOTE | 2025-07-10 15:56 | HO.PSYCHPN ---
Subjective Subjective Date of Service: 07/10/25 Reason For Visit: paranoid delusions Subjective Notes: Conditional Voluntary Interim History: Pt slept through the night. He continues to present as less paranoid towards staff and this health science writer reporting that he realizes he was paranoid and suspicious but can see why this health science writer was concerned about removing g-tube. He reports feeling less sedated. He has been taking medications as prescribed. He is much less paranoid towards his brother and accepting of his help. He also denies SI/HI. Review of Systems Review of Systems Pt denies abdominal pain. No SOB. Noted drooling. No chest pain. NO SOB. No difficulty breathing. Yes all other systems are reviewed and are negative Mental Status Exam Mental Status Exam Narrative: Appearance: wearing casual clothing, fair hygiene, in NAD. Behavior: guarded and suspicious Psychomotor: resting tremors of both hands noted. Speech: clear, normal rate/rhythm/volume, spontaneous TP: disorganized TC: grandiose delusions of working to become president. Mood: okay Affect: blunted SI: denies HI: denies VH/AH: denied today Delusions: paranoia towards staff Insight/judgment: impaired Memory/cog: oriented to person, time; not oriented to place, situation Diagnostics Vital Signs (24Hr): Vital Signs - 24 hr 07/09/25 20:00 07/10/25 08:00 Temperature 97.2 F Pulse Rate 59 91 Respiratory Rate 16 16 Blood Pressure 123/69 128/77 Pulse Oximetry 98 97 Oxygen Delivery Method Room Air BMI result Body Mass Index 21.5 Labs 07/01/25 10:35 Labs: Laboratory Results - last 48 hr 07/05/25 08:01 Clozapine 388 Norclozapine 104 Medications Medications Current Medications Acetaminophen (Acetaminophen 325 Mg Tablet) 975 mg G-TUBE TID [facility] Last Admin: 07/10/25 15:30 Dose: 975 mg Albuterol/Ipratropium (Albuterol/Iprat 2.5/0.5mg 3 Ml Ampul.Neb) 3 ml INHALE Q4H PRN PRN Reason: Shortness of Breath Albuterol/Ipratropium (Albuterol/Iprat 2.5/0.5mg 3 Ml Ampul.Neb) 3 ml INHALE RQ4H WHILE AWAKE PRN PRN Reason: sob Atorvastatin Calcium (Atorvastatin Calcium 40 Mg Tablet) 40 mg G-TUBE BEDTIME [facility] Last Admin: 07/09/25 21:14 Dose: 40 mg Bisacodyl (Bisacodyl 10 Mg Supp.Rect) 10 mg HI DAILY PRN PRN Reason: Constipation Calcium Carbonate (Calcium Carbonate 750 Mg Tab.Chew) 750 mg G-TUBE TID PRN PRN Reason: Heartburn Capsaicin (Capsaicin 0.025% Cream 60 Gm Tube) 1 appl TOPICAL TID PRN; Protocol PRN Reason: Pain, Moderate(Pain Scale 4-6) Clozapine (Clozapine 25 Mg Tablet) 50 mg G-TUBE DAILY@1100 [facility] Last Admin: 07/10/25 11:06 Dose: 50 mg Clozapine (Clozapine 100 Mg Tablet) 200 mg G-TUBE DAILY@1700 [facility] Last Admin: 07/09/25 16:48 Dose: 200 mg Doxazosin Mesylate (Doxazosin Mesylate 1 Mg Tablet) 1 mg PO BEDTIME [facility]; Protocol Last Admin: 07/09/25 21:14 Dose: 1 mg Famotidine (Famotidine 20 Mg Tablet) 20 mg G-TUBE BID [facility] Last Admin: 07/10/25 09:23 Dose: 20 mg Gabapentin (Gabapentin 300 Mg Capsule) 300 mg G-TUBE BEDTIME [facility] Last Admin: 07/09/25 21:13 Dose: 300 mg Gabapentin (Gabapentin 100 Mg Capsule) 100 mg G-TUBE DAILY [facility] Last Admin: 07/10/25 09:23 Dose: 100 mg Guaifenesin (Guaifenesin 200 Mg/10 Ml 10 Ml Liquid) 10 ml G-TUBE Q4H PRN PRN Reason: Cough Haloperidol (Haloperidol 1 Mg Tablet) 2 mg G-TUBE BID PRN PRN Reason: Agitation Haloperidol (Haloperidol 1 Mg Tablet) 1 mg G-TUBE DAILY [facility] Last Admin: 07/10/25 09:23 Dose: 1 mg Haloperidol (Haloperidol 1 Mg Tablet) 3 mg G-TUBE BEDTIME [facility] Last Admin: 07/09/25 21:14 Dose: 3 mg Lidocaine (Lidocaine 4 % Patch Adh..Patch) 1 patch TRANSDERMA DAILY [facility]; Protocol Last Admin: 07/10/25 09:23 Dose: 1 patch Lisinopril (Lisinopril 2.5 Mg Tablet) 2.5 mg PO DAILY [facility]; Protocol Last Admin: 07/10/25 09:23 Dose: 2.5 mg Multivitamins/Minerals (Multivitamin With Minerals Liq 15 Ml Liquid) 15 ml G-TUBE DAILY [facility] Last Admin: 07/10/25 09:24 Dose: 15 ml Polyethylene Glycol (Polyethylene Glycol 3350 17 Gm Powd.Pack) 17 gm G-TUBE DAILY [facility] Last Admin: 07/10/25 09:24 Dose: 17 gm Scopolamine (Scopolamine 1.5 Mg Patch.Td.3) 1.5 mg EAR-BEHIND Q72H [facility] Last Admin: 07/10/25 12:50 Dose: 1.5 mg Simethicone (Simethicone 80 Mg Tab.Chew) 80 mg G-TUBE Q6H PRN PRN Reason: Dyspepsia Tramadol HCl (Tramadol Hcl 50 Mg Tablet) 50 mg G-TUBE Q6H PRN PRN Reason: moderate, pain Last Admin: 07/10/25 00:07 Dose: 50 mg Trazodone HCl (Trazodone Hcl 50 Mg Tablet) 150 mg G-TUBE BEDTIME [facility] Last Admin: 07/09/25 21:14 Dose: 150 mg Valproic Acid (Valproic Acid Liquid 250 Mg/5 Ml Solution) 1,000 mg G-TUBE BID@1100,1700 [facility] Last Admin: 07/10/25 11:06 Dose: 1,000 mg Allergies Allergies Allergy/AdvReac Type Severity Reaction Status Date / Time No Known Allergies Allergy Verified 06/25/25 21:33 Assessment & Plan Assessment & Plan (1) Schizophrenia: Qualifiers: Schizophrenia type: unspecified Qualified Code(s): F20.9 - Schizophrenia, unspecified Status: Acute Code(s): F20.9 - Schizophrenia, unspecified Plan Mr. Raymundo is a 70 year-old male with hx of schizophrenia who initially was transferred from [facility] to [facility] after prolonged medical admission due to pt presenting with episodes of lethargy, complicated by covid, aspiration pneumonia and exacerbation of psychiatric condition including increase paranoid delusions towards his brother which then led to him feeling suicidal. He went to medical floor due to lethargy and apnea and difficulty managing excessive secretions. He was found to have severe sleep apnea. He was started on CPAP 5-20 cm auto mode. He is now back on sergio unit, presenting more paranoid than first time, accusatory and mistrustful of staff and this health science writer. He also presents with grandiose delusions of wanting to be president and erotomanic delusions of marrying a famous poet he does not know but some how is certain she wants to be with him too. Speech therapy continues to recommend G-tube due to severe risk of aspiration. Pt demands that g-tube be removed but after further assessment of his understanding of current medical condition and consequences of not having it but does not seem to understand that life expectancy would significantly shorten given complications of aspiration, leading to pneumonia, respiratory failure, sepsis and . Suspect clozapine contributing to dysphagia. 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 Concern in terms of increasing clozapine and worsening dysphagia along with other side effects including drooling, constipation. He is on low dose haldol although he has parkinsonism- we could add second antipsychotic that is lower potency. Will call brother to discuss options as pt does not seem to fully understand medical conditions, show appreciation of risk versus benefit despite being able to verbalize a preference/choice. PLAN 07/02 noted very low level of depakote despite medication being given and dose should reflect higher level. Will check depakote level again tomorrow and adjust dose. concern also for clozapine level also going down if some is being lost in tubing, or however is being metabolized. invoke HCP. per brother it appears HCP was affirmed by the court- we don't have copy of this. 07/03 Depakote level (22.8) is low despite getting 500mg G-tube BID dose, unclear if some lost in tubing. will increase dose of depakote to 1000mg g-tube BID, increase clozapine to 50mg g-tube am and 200mg qhs. 07/04, 07/05: no changes today, check VPA level this week 07/06 continue medications, will check depakote tomorrow AM. 07/07 d/c ativan, depakote level despite dose adjustment to 1000mg gtube BID continues to be low (33).change depakote to be given when he is not receiving feedings. 07/08 continue tx. 07/09 continue tx. 07/10 continue tx. Reason for continued inpatient stay Substantial Risk for: inability to function Time Spent With Patient Time: Total time managing care of this patient today ____ minutes.
--- NOTE | 2025-07-10 18:25 | PC.NURSE ---
He spent the day in the milieu reading, writing poetry, and practicing his writing. He has been encouraged to brush his teeth and to do his mouth exercises, he has been doing his leg exercises and said that his neuropathy has improved. His brother called and he was updated on his day.
[2025-07-10 20:00] VITALS: BP 110/64; PULSE 100; RESP 16; TEMP 36.6; O2SAT 97
[2025-07-11] MEDS: Multivitamin with Minerals Liq 15 ML LIQUID G-TUBE (10:01)
[2025-07-11 10:02] VITALS: BP 126/68; PULSE 90; RESP 18; TEMP 36.5; O2SAT 98
[2025-07-11] MEDS: Lidocaine 4 % Patch ADH..PATCH 1 PATCH TRANSDERMA (10:04)
--- NOTE | 2025-07-11 10:14 | P.PNPSI_ITS ---
Subjective Subjective Date of Service: 07/11/25 Reason For Visit: paranoid delusions Interim History: Pt reports some increase in paranoia. Insightfully says he thinks it may be anxiety related to plans for DC soon. Adherent to medications. No behavioral concerns. He reports feeling less sedated. Eating well. Sleep is good. He also denies SI/HI. Review of Systems Review of Systems Pt denies abdominal pain. No SOB. Noted drooling. No chest pain. NO SOB. No difficulty breathing. Yes all other systems are reviewed and are negative Mental Status Exam Mental Status Exam Narrative: Appearance: wearing casual clothing, fair hygiene, in NAD. Behavior: guarded and suspicious Psychomotor: resting tremors of both hands noted. Speech: clear, normal rate/rhythm/volume, spontaneous TP: disorganized TC: grandiose delusions of working to become president. Mood: okay Affect: blunted SI: denies HI: denies VH/AH: denied today Delusions: paranoia towards staff Insight/judgment: impaired Memory/cog: oriented to person, time; not oriented to place, situation Diagnostics Vital Signs (24Hr): Vital Signs - 24 hr 07/10/25 20:00 07/11/25 10:02 Temperature 97.8 F 97.7 F Pulse Rate 100 90 Respiratory Rate 16 18 Blood Pressure 110/64 126/68 Pulse Oximetry 97 98 Oxygen Delivery Method Room Air Room Air BMI result Body Mass Index 21.5 Labs 07/01/25 10:35 Medications Medications Current Medications Acetaminophen (Acetaminophen 325 Mg Tablet) 975 mg G-TUBE TID [facility] Last Admin: 07/11/25 10:01 Dose: 975 mg Albuterol/Ipratropium (Albuterol/Iprat 2.5/0.5mg 3 Ml Ampul.Neb) 3 ml INHALE Q4H PRN PRN Reason: Shortness of Breath Albuterol/Ipratropium (Albuterol/Iprat 2.5/0.5mg 3 Ml Ampul.Neb) 3 ml INHALE RQ4H WHILE AWAKE PRN PRN Reason: sob Atorvastatin Calcium (Atorvastatin Calcium 40 Mg Tablet) 40 mg G-TUBE BEDTIME [facility] Last Admin: 07/10/25 21:27 Dose: 40 mg Bisacodyl (Bisacodyl 10 Mg Supp.Rect) 10 mg SC DAILY PRN PRN Reason: Constipation Calcium Carbonate (Calcium Carbonate 750 Mg Tab.Chew) 750 mg G-TUBE TID PRN PRN Reason: Heartburn Capsaicin (Capsaicin 0.025% Cream 60 Gm Tube) 1 appl TOPICAL TID PRN; Protocol PRN Reason: Pain, Moderate(Pain Scale 4-6) Clozapine (Clozapine 25 Mg Tablet) 50 mg G-TUBE DAILY@1100 [facility] Last Admin: 07/10/25 11:06 Dose: 50 mg Clozapine (Clozapine 100 Mg Tablet) 200 mg G-TUBE DAILY@1700 [facility] Last Admin: 07/10/25 17:06 Dose: 200 mg Doxazosin Mesylate (Doxazosin Mesylate 1 Mg Tablet) 1 mg PO BEDTIME [facility]; Protocol Last Admin: 07/10/25 21:27 Dose: 1 mg Famotidine (Famotidine 20 Mg Tablet) 20 mg G-TUBE BID [facility] Last Admin: 07/11/25 10:01 Dose: 20 mg Gabapentin (Gabapentin 300 Mg Capsule) 300 mg G-TUBE BEDTIME [facility] Last Admin: 07/10/25 21:27 Dose: 300 mg Gabapentin (Gabapentin 100 Mg Capsule) 100 mg G-TUBE DAILY [facility] Last Admin: 07/11/25 10:04 Dose: 100 mg Guaifenesin (Guaifenesin 200 Mg/10 Ml 10 Ml Liquid) 10 ml G-TUBE Q4H PRN PRN Reason: Cough Haloperidol (Haloperidol 1 Mg Tablet) 2 mg G-TUBE BID PRN PRN Reason: Agitation Haloperidol (Haloperidol 1 Mg Tablet) 1 mg G-TUBE DAILY [facility] Last Admin: 07/11/25 10:03 Dose: 1 mg Haloperidol (Haloperidol 1 Mg Tablet) 3 mg G-TUBE BEDTIME [facility] Last Admin: 07/10/25 21:27 Dose: 3 mg Lidocaine (Lidocaine 4 % Patch Adh..Patch) 1 patch TRANSDERMA DAILY [facility]; Protocol Last Admin: 07/11/25 10:04 Dose: 1 patch Lisinopril (Lisinopril 2.5 Mg Tablet) 2.5 mg PO DAILY [facility]; Protocol Last Admin: 07/11/25 10:03 Dose: 2.5 mg Multivitamins/Minerals (Multivitamin With Minerals Liq 15 Ml Liquid) 15 ml G- TUBE DAILY [facility] Last Admin: 07/11/25 10:01 Dose: 15 ml Polyethylene Glycol (Polyethylene Glycol 3350 17 Gm Powd.Pack) 17 gm G-TUBE DAILY [facility] Last Admin: 07/11/25 10:05 Dose: Not Given Scopolamine (Scopolamine 1.5 Mg Patch.Td.3) 1.5 mg EAR-BEHIND Q72H [facility] Last Admin: 07/10/25 12:50 Dose: 1.5 mg Simethicone (Simethicone 80 Mg Tab.Chew) 80 mg G-TUBE Q6H PRN PRN Reason: Dyspepsia Tramadol HCl (Tramadol Hcl 50 Mg Tablet) 50 mg G-TUBE Q6H PRN PRN Reason: moderate, pain Last Admin: 07/10/25 21:27 Dose: 50 mg Trazodone HCl (Trazodone Hcl 50 Mg Tablet) 150 mg G-TUBE BEDTIME [facility] Last Admin: 07/10/25 21:26 Dose: 150 mg Valproic Acid (Valproic Acid Liquid 250 Mg/5 Ml Solution) 1,000 mg G-TUBE BID@1100,1700 [facility] Last Admin: 07/10/25 17:06 Dose: 1,000 mg Allergies Allergies Allergy/AdvReac Type Severity Reaction Status Date / Time No Known Allergies Allergy Verified 06/25/25 21:33 Assessment & Plan Assessment & Plan (1) Schizophrenia: Qualifiers: Schizophrenia type: unspecified Qualified Code(s): F20.9 - Schizophrenia, unspecified Status: Acute Code(s): F20.9 - Schizophrenia, unspecified Plan Mr. Raymundo is a 70 year-old male with hx of schizophrenia who initially was transferred from [facility] to [facility] after prolonged medical admission due to pt presenting with episodes of lethargy, complicated by covid, aspiration pneumonia and exacerbation of psychiatric condition including increase paranoid delusions towards his brother which then led to him feeling suicidal. He went to medical floor due to lethargy and apnea and difficulty managing excessive secretions. He was found to have severe sleep apnea. He was started on CPAP 5- 20 cm auto mode. 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 He also presents with grandiose delusions of wanting to be president and erotomanic delusions of marrying a famous poet he does not know but some how is certain she wants to be with him too. Speech therapy continues to recommend G-tube due to severe risk of aspiration. Pt demands that g-tube be removed but after further assessment of his understanding of current medical condition and consequences of not having it but does not seem to understand that life expectancy would significantly shorten given complications of aspiration, leading to pneumonia, respiratory failure, sepsis and . Suspect clozapine contributing to dysphagia. 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 Concern in terms of increasing clozapine and worsening dysphagia along with other side effects including drooling, constipation. He is on low dose haldol although he has parkinsonism- we could add second antipsychotic that is lower potency. Will call brother to discuss options as pt does not seem to fully understand medical conditions, show appreciation of risk versus benefit despite being able to verbalize a preference/choice. PLAN 07/02 noted very low level of depakote despite medication being given and dose should reflect higher level. Will check depakote level again tomorrow and adjust dose. concern also for clozapine level also going down if some is being lost in tubing, or however is being metabolized. invoke HCP. per brother it appears HCP was affirmed by the court- we don't have copy of this. 07/03 Depakote level (22.8) is low despite getting 500mg G-tube BID dose, unclear if some lost in tubing. will increase dose of depakote to 1000mg g-tube BID, increase clozapine to 50mg g-tube am and 200mg qhs. 07/04, 07/05: no changes today, check VPA level this week 07/06 continue medications, will check depakote tomorrow AM. 07/07 d/c ativan, depakote level despite dose adjustment to 1000mg gtube BID continues to be low (33).change depakote to be given when he is not receiving feedings. 07/08 continue tx. 07/09 continue tx. 07/10 continue tx. 07/11: continue current management and treatment plan. Reason for continued inpatient stay Substantial Risk for: harm to self, inability to function, rapid decompensation and med/psych decompensation Time Spent With Patient Time: Total time managing care of this patient today ____ minutes.
[2025-07-11] MEDS: Valproic Acid Liquid 250 MG/5 ML SOLUTION 1000 MG G-TUBE ×2 (12:23→17:02)
[2025-07-11 20:00] VITALS: BP 112/64; PULSE 100; RESP 16; TEMP 36.1; O2SAT 93
[2025-07-12] MEDS: Lidocaine 4 % Patch ADH..PATCH 1 PATCH TRANSDERMA (09:02)
[2025-07-12] MEDS: Multivitamin with Minerals Liq 15 ML LIQUID G-TUBE (09:03)
[2025-07-12 09:05] VITALS: BP 110/70; PULSE 92; RESP 18; TEMP 36.5; O2SAT 96
[2025-07-12] MEDS: Valproic Acid Liquid 250 MG/5 ML SOLUTION 1000 MG G-TUBE ×2 (12:04→15:49)
--- NOTE | 2025-07-12 15:45 | HO.PSYCHPN ---
Subjective Subjective Date of Service: 07/12/25 Reason For Visit: paranoid delusions Interim History: Patient feels well. Denies any concerns. Adherent. No behavioral concerns. Plans for DC soon. Adherent to medications. No behavioral concerns. He reports feeling less sedated. Eating well. Sleep is good. He also denies SI/HI. Review of Systems Review of Systems Pt denies abdominal pain. No SOB. Noted drooling. No chest pain. NO SOB. No difficulty breathing. Yes all other systems are reviewed and are negative Mental Status Exam Mental Status Exam Narrative: Appearance: wearing casual clothing, fair hygiene, in NAD. Behavior: guarded and suspicious Psychomotor: resting tremors of both hands noted. Speech: clear, normal rate/rhythm/volume, spontaneous TP: disorganized TC: grandiose delusions of working to become president. Mood: okay Affect: blunted SI: denies HI: denies VH/AH: denied today Delusions: paranoia towards staff Insight/judgment: impaired Memory/cog: oriented to person, time; not oriented to place, situation Diagnostics Vital Signs (24Hr): Vital Signs - 24 hr 07/11/25 20:00 07/12/25 09:05 Temperature 97 F 97.7 F Pulse Rate 100 92 Respiratory Rate 16 18 Blood Pressure 112/64 110/70 Pulse Oximetry 93 96 Oxygen Delivery Method Room Air Room Air BMI result Body Mass Index 21.5 Labs 07/01/25 10:35 Medications Medications Current Medications Acetaminophen (Acetaminophen 325 Mg Tablet) 975 mg G-TUBE TID [facility] Last Admin: 07/12/25 09:02 Dose: 975 mg Albuterol/Ipratropium (Albuterol/Iprat 2.5/0.5mg 3 Ml Ampul.Neb) 3 ml INHALE Q4H PRN PRN Reason: Shortness of Breath Albuterol/Ipratropium (Albuterol/Iprat 2.5/0.5mg 3 Ml Ampul.Neb) 3 ml INHALE RQ4H WHILE AWAKE PRN PRN Reason: sob Atorvastatin Calcium (Atorvastatin Calcium 40 Mg Tablet) 40 mg G-TUBE BEDTIME [facility] Last Admin: 07/11/25 21:17 Dose: 40 mg Bisacodyl (Bisacodyl 10 Mg Supp.Rect) 10 mg SD DAILY PRN PRN Reason: Constipation Calcium Carbonate (Calcium Carbonate 750 Mg Tab.Chew) 750 mg G-TUBE TID PRN PRN Reason: Heartburn Capsaicin (Capsaicin 0.025% Cream 60 Gm Tube) 1 appl TOPICAL TID PRN; Protocol PRN Reason: Pain, Moderate(Pain Scale 4-6) Clozapine (Clozapine 25 Mg Tablet) 50 mg G-TUBE DAILY@1100 [facility] Last Admin: 07/12/25 12:04 Dose: 50 mg Clozapine (Clozapine 100 Mg Tablet) 200 mg G-TUBE DAILY@1700 [facility] Last Admin: 07/11/25 17:02 Dose: 200 mg Doxazosin Mesylate (Doxazosin Mesylate 1 Mg Tablet) 1 mg PO BEDTIME [facility]; Protocol Last Admin: 07/11/25 21:16 Dose: 1 mg Famotidine (Famotidine 20 Mg Tablet) 20 mg G-TUBE BID [facility] Last Admin: 07/12/25 09:01 Dose: 20 mg Gabapentin (Gabapentin 300 Mg Capsule) 300 mg G-TUBE BEDTIME [facility] Last Admin: 07/11/25 21:17 Dose: 300 mg Gabapentin (Gabapentin 100 Mg Capsule) 100 mg G-TUBE DAILY [facility] Last Admin: 07/12/25 09:01 Dose: 100 mg Guaifenesin (Guaifenesin 200 Mg/10 Ml 10 Ml Liquid) 10 ml G-TUBE Q4H PRN PRN Reason: Cough Haloperidol (Haloperidol 1 Mg Tablet) 2 mg G-TUBE BID PRN PRN Reason: Agitation Haloperidol (Haloperidol 1 Mg Tablet) 1 mg G-TUBE DAILY [facility] Last Admin: 07/12/25 09:02 Dose: 1 mg Haloperidol (Haloperidol 1 Mg Tablet) 3 mg G-TUBE BEDTIME [facility] Last Admin: 07/11/25 21:18 Dose: 3 mg Lidocaine (Lidocaine 4 % Patch Adh..Patch) 1 patch TRANSDERMA DAILY [facility]; Protocol Last Admin: 07/12/25 09:02 Dose: 1 patch Lisinopril (Lisinopril 2.5 Mg Tablet) 2.5 mg PO DAILY [facility]; Protocol Last Admin: 07/12/25 09:05 Dose: 2.5 mg Multivitamins/Minerals (Multivitamin With Minerals Liq 15 Ml Liquid) 15 ml G-TUBE DAILY [facility] Last Admin: 07/12/25 09:03 Dose: 15 ml Polyethylene Glycol (Polyethylene Glycol 3350 17 Gm Powd.Pack) 17 gm G-TUBE DAILY [facility] Last Admin: 07/12/25 09:10 Dose: Not Given Scopolamine (Scopolamine 1.5 Mg Patch.Td.3) 1.5 mg EAR-BEHIND Q72H [facility] Last Admin: 07/10/25 12:50 Dose: 1.5 mg Simethicone (Simethicone 80 Mg Tab.Chew) 80 mg G-TUBE Q6H PRN PRN Reason: Dyspepsia Tramadol HCl (Tramadol Hcl 50 Mg Tablet) 50 mg G-TUBE Q6H PRN PRN Reason: Pain, Severe (Pain Scale 7-10) Trazodone HCl (Trazodone Hcl 50 Mg Tablet) 150 mg G-TUBE BEDTIME [facility] Last Admin: 07/11/25 21:17 Dose: 150 mg Valproic Acid (Valproic Acid Liquid 250 Mg/5 Ml Solution) 1,000 mg G-TUBE BID@1100,1700 [facility] Last Admin: 07/12/25 12:04 Dose: 1,000 mg Allergies Allergies Allergy/AdvReac Type Severity Reaction Status Date / Time No Known Allergies Allergy Verified 06/25/25 21:33 Assessment & Plan Assessment & Plan (1) Schizophrenia: Qualifiers: Schizophrenia type: unspecified Qualified Code(s): F20.9 - Schizophrenia, unspecified Status: Acute Code(s): F20.9 - Schizophrenia, unspecified Plan Mr. Raymundo is a 70 year-old male with hx of schizophrenia who initially was transferred from [facility] to [facility] after prolonged medical admission due to pt presenting with episodes of lethargy, complicated by covid, aspiration pneumonia and exacerbation of psychiatric condition including increase paranoid delusions towards his brother which then led to him feeling suicidal. He went to medical floor due to lethargy and apnea and difficulty managing excessive secretions. He was found to have severe sleep apnea. He was started on CPAP 5-20 cm auto mode. 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 He also presents with grandiose delusions of wanting to be president and erotomanic delusions of marrying a famous poet he does not know but some how is certain she wants to be with him too. Speech therapy continues to recommend G-tube due to severe risk of aspiration. Pt demands that g-tube be removed but after further assessment of his understanding of current medical condition and consequences of not having it but does not seem to understand that life expectancy would significantly shorten given complications of aspiration, leading to pneumonia, respiratory failure, sepsis and . Suspect clozapine contributing to dysphagia. 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 Concern in terms of increasing clozapine and worsening dysphagia along with other side effects including drooling, constipation. He is on low dose haldol although he has parkinsonism- we could add second antipsychotic that is lower potency. Will call brother to discuss options as pt does not seem to fully understand medical conditions, show appreciation of risk versus benefit despite being able to verbalize a preference/choice. PLAN 07/02 noted very low level of depakote despite medication being given and dose should reflect higher level. Will check depakote level again tomorrow and adjust dose. concern also for clozapine level also going down if some is being lost in tubing, or however is being metabolized. invoke HCP. per brother it appears HCP was affirmed by the court- we don't have copy of this. 07/03 Depakote level (22.8) is low despite getting 500mg G-tube BID dose, unclear if some lost in tubing. will increase dose of depakote to 1000mg g-tube BID, increase clozapine to 50mg g-tube am and 200mg qhs. 07/04, 07/05: no changes today, check VPA level this week 07/06 continue medications, will check depakote tomorrow AM. 07/07 d/c ativan, depakote level despite dose adjustment to 1000mg gtube BID continues to be low (33).change depakote to be given when he is not receiving feedings. 07/08 continue tx. 07/09 continue tx. 07/10 continue tx. 07/11: continue current management and treatment plan. 07/12: continue current management and treatment plan. Reason for continued inpatient stay Substantial Risk for: inability to function and rapid decompensation Time Spent With Patient Time: Total time managing care of this patient today ____ minutes.
[2025-07-12 20:00] VITALS: BP 106/60; PULSE 100; RESP 16; TEMP 36.3; O2SAT 97
[2025-07-13] MEDS: Lidocaine 4 % Patch ADH..PATCH 1 PATCH TRANSDERMA (08:59)
[2025-07-13] MEDS: Multivitamin with Minerals Liq 15 ML LIQUID G-TUBE (09:00)
--- NOTE | 2025-07-13 09:16 | P.PNPSI_ITS ---
Subjective Subjective Date of Service: 07/13/25 Reason For Visit: paranoid delusions Subjective Notes: Conditional Voluntary Healthcare Proxy: Yes Interim History: Pt sleeping through the night. He reports I demand that I'll be transferred to [facility] today. This lead technical writer explained that they do not have bed for him to go today for STR. He also asks g-tube to be removed today so he can start eating by mouth as he does not think there is something wrong with his swallowing. He has been taking medications as prescribed. No overt paranoid ideas towards brother and no SI. SOme suspiciousness towards staff and this lead technical writer in terms of not fully believing that there is no bed and that he has severe dysphagia. He was calm overall and did tell this lead technical writer he will wait for update from in terms of referrals for STR. Review of Systems Review of Systems Pt denies abdominal pain. No SOB. Noted drooling. No chest pain. NO SOB. No difficulty breathing. Yes all other systems are reviewed and are negative Mental Status Exam Mental Status Exam Narrative: Appearance: wearing casual clothing, fair hygiene, in NAD. Behavior: guarded and suspicious Psychomotor: resting tremors of both hands noted. Speech: clear, normal rate/rhythm/volume, spontaneous TP: disorganized TC: grandiose delusions of working to become president. Mood: okay Affect: blunted SI: denies HI: denies VH/AH: denied today Delusions: paranoia towards staff Insight/judgment: impaired Memory/cog: oriented to person, time; not oriented to place, situation Diagnostics Vital Signs (24Hr): Vital Signs - 24 hr 07/12/25 20:00 Temperature 97.4 F Pulse Rate 100 Respiratory Rate 16 Blood Pressure 106/60 Pulse Oximetry 97 Oxygen Delivery Method Room Air BMI result Body Mass Index 21.5 Labs 07/01/25 10:35 Medications Medications Current Medications Acetaminophen (Acetaminophen 325 Mg Tablet) 975 mg G-TUBE TID [facility] Last Admin: 07/13/25 08:58 Dose: 975 mg Albuterol/Ipratropium (Albuterol/Iprat 2.5/0.5mg 3 Ml Ampul.Neb) 3 ml INHALE Q4H PRN PRN Reason: Shortness of Breath Albuterol/Ipratropium (Albuterol/Iprat 2.5/0.5mg 3 Ml Ampul.Neb) 3 ml INHALE RQ4H WHILE AWAKE PRN PRN Reason: sob Atorvastatin Calcium (Atorvastatin Calcium 40 Mg Tablet) 40 mg G-TUBE BEDTIME [facility] Last Admin: 07/12/25 21:03 Dose: 40 mg Bisacodyl (Bisacodyl 10 Mg Supp.Rect) 10 mg PA DAILY PRN PRN Reason: Constipation Calcium Carbonate (Calcium Carbonate 750 Mg Tab.Chew) 750 mg G-TUBE TID PRN PRN Reason: Heartburn Capsaicin (Capsaicin 0.025% Cream 60 Gm Tube) 1 appl TOPICAL TID PRN; Protocol PRN Reason: Pain, Moderate(Pain Scale 4-6) Clozapine (Clozapine 25 Mg Tablet) 50 mg G-TUBE DAILY@1100 [facility] Last Admin: 07/12/25 12:04 Dose: 50 mg Clozapine (Clozapine 100 Mg Tablet) 200 mg G-TUBE DAILY@1700 [facility] Last Admin: 07/12/25 15:49 Dose: 200 mg Doxazosin Mesylate (Doxazosin Mesylate 1 Mg Tablet) 1 mg PO BEDTIME [facility]; Protocol Last Admin: 07/12/25 21:03 Dose: 1 mg Famotidine (Famotidine 20 Mg Tablet) 20 mg G-TUBE BID [facility] Last Admin: 07/13/25 08:59 Dose: 20 mg Gabapentin (Gabapentin 300 Mg Capsule) 300 mg G-TUBE BEDTIME [facility] Last Admin: 07/12/25 21:03 Dose: 300 mg Gabapentin (Gabapentin 100 Mg Capsule) 100 mg G-TUBE DAILY [facility] Last Admin: 07/13/25 08:59 Dose: 100 mg Guaifenesin (Guaifenesin 200 Mg/10 Ml 10 Ml Liquid) 10 ml G-TUBE Q4H PRN PRN Reason: Cough Haloperidol (Haloperidol 1 Mg Tablet) 2 mg G-TUBE BID PRN PRN Reason: Agitation Haloperidol (Haloperidol 1 Mg Tablet) 1 mg G-TUBE DAILY [facility] Last Admin: 07/13/25 08:59 Dose: 1 mg Haloperidol (Haloperidol 1 Mg Tablet) 3 mg G-TUBE BEDTIME [facility] Last Admin: 07/12/25 21:04 Dose: 3 mg Lidocaine (Lidocaine 4 % Patch Adh..Patch) 1 patch TRANSDERMA DAILY [facility]; Protocol Last Admin: 07/13/25 08:59 Dose: 1 patch Lisinopril (Lisinopril 2.5 Mg Tablet) 2.5 mg PO DAILY [facility]; Protocol Last Admin: 07/13/25 08:58 Dose: 2.5 mg Multivitamins/Minerals (Multivitamin With Minerals Liq 15 Ml Liquid) 15 ml G- TUBE DAILY [facility] Last Admin: 07/13/25 09:00 Dose: 15 ml Polyethylene Glycol (Polyethylene Glycol 3350 17 Gm Powd.Pack) 17 gm G-TUBE DAILY [facility] Last Admin: 07/13/25 08:58 Dose: 17 gm Scopolamine (Scopolamine 1.5 Mg Patch.Td.3) 1.5 mg EAR-BEHIND Q72H [facility] Last Admin: 07/10/25 12:50 Dose: 1.5 mg Simethicone (Simethicone 80 Mg Tab.Chew) 80 mg G-TUBE Q6H PRN PRN Reason: Dyspepsia Tramadol HCl (Tramadol Hcl 50 Mg Tablet) 50 mg G-TUBE Q6H PRN PRN Reason: Pain, Severe (Pain Scale 7-10) Trazodone HCl (Trazodone Hcl 50 Mg Tablet) 150 mg G-TUBE BEDTIME [facility] Last Admin: 07/12/25 21:03 Dose: 150 mg Valproic Acid (Valproic Acid Liquid 250 Mg/5 Ml Solution) 1,000 mg G-TUBE BID@1100,1700 [facility] Last Admin: 07/12/25 15:49 Dose: 1,000 mg Allergies Allergies Allergy/AdvReac Type Severity Reaction Status Date / Time No Known Allergies Allergy Verified 06/25/25 21:33 Assessment & Plan Assessment & Plan (1) Schizophrenia: Qualifiers: Schizophrenia type: unspecified Qualified Code(s): F20.9 - Schizophrenia, unspecified Status: Acute Code(s): F20.9 - Schizophrenia, unspecified Plan Mr. Raymundo is a 70 year-old male with hx of schizophrenia who initially was transferred from [facility] to [facility] after prolonged medical admission due to pt presenting with episodes of lethargy, complicated by covid, aspiration pneumonia and exacerbation of psychiatric condition including increase paranoid delusions towards his brother which then led to him feeling suicidal. He went to medical floor due to lethargy and apnea and difficulty managing excessive secretions. He was found to have severe sleep apnea. He was started on CPAP 5- 20 cm auto mode. He is now back on sergio unit, presenting more paranoid than first time, accusatory and mistrustful of staff and this lead technical writer. He also presents with grandiose delusions of wanting to be president and erotomanic delusions of marrying a famous poet he does not know but some how is certain she wants to be with him too. Speech therapy continues to recommend G-tube due to severe risk of aspiration. Pt demands that g-tube be removed but after further assessment of his understanding of current medical condition and consequences of not having it but does not seem to understand that life expectancy would significantly shorten given complications of aspiration, leading to pneumonia, respiratory failure, sepsis and . Suspect clozapine contributing to dysphagia. 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 Concern in terms of increasing clozapine and worsening dysphagia along with other side effects including drooling, constipation. He is on low dose haldol although he has parkinsonism- we could add second antipsychotic that is lower potency. Will call brother to discuss options as pt does not seem to fully understand medical conditions, show appreciation of risk versus benefit despite being able to verbalize a preference/choice. PLAN 07/02 noted very low level of depakote despite medication being given and dose should reflect higher level. Will check depakote level again tomorrow and adjust dose. concern also for clozapine level also going down if some is being lost in tubing, or however is being metabolized. invoke HCP. per brother it appears HCP was affirmed by the court- we don't have copy of this. 07/03 Depakote level (22.8) is low despite getting 500mg G-tube BID dose, unclear if some lost in tubing. will increase dose of depakote to 1000mg g-tube BID, increase clozapine to 50mg g-tube am and 200mg qhs. 07/04, 07/05: no changes today, check VPA level this week 07/06 continue medications, will check depakote tomorrow AM. 07/07 d/c ativan, depakote level despite dose adjustment to 1000mg gtube BID continues to be low (33).change depakote to be given when he is not receiving feedings. 07/08 continue tx. 07/09 continue tx. 07/10 continue tx. 07/11: continue current management and treatment plan. 07/12: continue current management and treatment plan. 07/13 continue tx. will check depakote tomorrow AM. pending transfer to [facility]. Reason for continued inpatient stay Substantial Risk for: inability to function Time Spent With Patient Time: Total time managing care of this patient today ____ minutes.
[2025-07-13] MEDS: Valproic Acid Liquid 250 MG/5 ML SOLUTION 1000 MG G-TUBE ×2 (11:07→17:12)
--- NOTE | 2025-07-13 12:22 | PC.NURSE ---
While talking with the speech pathologist he stated that he wanted a swallow eval done either today or tomorrow because he was leaving to [facility] and he wants to leave as quickly as possible because he can't stay here any longer due to the poor care he is receiving. SW texted she returned text stating he was spoken with on Sunday and was told that [facility] was full and referrals have gone out to other facilities that have also denied him.
--- NOTE | 2025-07-13 12:48 | MHC.SL.SWA ---
Speech Pathologist Impression: Significant pharyngeal dysphagia of unclear etiology Risk of Aspiration Due to: Dysphasia Diet Status: Liquid Consistency and Strategies for Safe Swallow: Liquid Intake Recommendation: NPO Liquid Intake Strategies: Solid Food Consistency: Dietary Recommendations: NPO Additional Modifications to Solid Foods: Oral Medication Intake: NPO Please contact the pharmacy regarding appropriate crushable or liquid drug formulations that are available whenever modified delivery is recommended. Compensatory Strategies and Precautions to be Taken for Safe Swallow: Supervision While Eating and Drinking for Safe Swallow: PO with WASTEWATER ANALYST LAB ANALYST Foods to Avoid: Swallowing Recommended Treatments: Recommendation for Speech: Inpatient Speech Therapy Speech Therapy through Rehab Facility Modified Barium Swallow Study - Inpatient Pt seen for dysphagia treatment 07/13. Pt communicating more effectively, participating in discussion about dysphagia by verbalizing his understanding of pharyngeal strengthening exercises, noting he does the dysphagia exercises daily. RN present during tx, pt insisted that MBSS be conducted today, stating that he will be leaving soon, possibly this afternoon. RN present, proving cues to pt in encouraging his orientation to place/situation. Pt expressed his impatience with having to wait for repeat swallow xray, but did verbalize his willingness to discuss this with the high school social studies teacher. Pt remains NPO strict, alternative nutrition in place. Trace anterior loss of saliva observed while pt speaking. Pt in agreement with repeat MBSS when indicated prior to resumption of PO (if at all possible). Treatment to continue addressing oroharyngeal dysphagia and strengthening. Frequency/Duration: M-F Daily Date Range for Service Req: Timeline to reassess: Dermatology Technician Clinican/Clinical Fellow: No Supervisory Statement: I have reviewed and agree with the student/clinical fellow's documentation: N/A Speech Language Pathologist: Kalyani Weaver M.S., CCC-WASTEWATER ANALYST LAB ANALYST
--- NOTE | 2025-07-13 13:25 | MHC.CLN ---
F/U CONTINUES NPO. TOLERATING TUBE FEEDING WITH NO NOTED CONCERNS.
[2025-07-13 20:00] VITALS: BP 119/67; PULSE 103; RESP 16; TEMP 36.1; O2SAT 97
[2025-07-14 08:00] VITALS: BP 119/67; PULSE 98; RESP 16; TEMP 36.8; O2SAT 97
[2025-07-14] MEDS: Multivitamin with Minerals Liq 15 ML LIQUID G-TUBE (08:51)
--- NOTE | 2025-07-14 08:57 | HO.PSYCHPN ---
Subjective Subjective Date of Service: 07/14/25 Reason For Visit: paranoid delusions Subjective Notes: Conditional Voluntary Healthcare Proxy: Yes Interim History: Pt sleeping through the night. He expressed frustration about still being on the unit, not being transferred to [facility], nor working more extensively with PT. He also reports he does not want the g-tube, does not think his swallowing is as impaired. Less paranoid towards brother. taking medications. Medication Compliance: Yes Review of Systems Review of Systems Pt denies abdominal pain. No SOB. Noted drooling. No chest pain. NO SOB. No difficulty breathing. Yes all other systems are reviewed and are negative Mental Status Exam Mental Status Exam Narrative: Appearance: wearing casual clothing, fair hygiene, in NAD. Behavior: guarded and suspicious Psychomotor: resting tremors of both hands noted. Speech: clear, normal rate/rhythm/volume, spontaneous TP: disorganized TC: grandiose delusions of working to become president. Mood: okay Affect: blunted SI: denies HI: denies VH/AH: denied today Delusions: paranoia towards staff Insight/judgment: impaired Memory/cog: oriented to person, time; not oriented to place, situation Diagnostics Vital Signs (24Hr): Vital Signs - 24 hr 07/13/25 20:00 07/14/25 08:00 Temperature 96.9 F 98.2 F Pulse Rate 103 H 98 Respiratory Rate 16 16 Blood Pressure 119/67 119/67 Pulse Oximetry 97 97 Oxygen Delivery Method Room Air Room Air BMI result Body Mass Index 21.5 Labs 07/01/25 10:35 Labs: Laboratory Results - last 48 hr 07/14/25 07:59 Valproic Acid 26.0 L Medications Medications Current Medications Acetaminophen (Acetaminophen 325 Mg Tablet) 975 mg G-TUBE TID [facility] Last Admin: 07/13/25 21:39 Dose: 975 mg Albuterol/Ipratropium (Albuterol/Iprat 2.5/0.5mg 3 Ml Ampul.Neb) 3 ml INHALE Q4H PRN PRN Reason: Shortness of Breath Albuterol/Ipratropium (Albuterol/Iprat 2.5/0.5mg 3 Ml Ampul.Neb) 3 ml INHALE RQ4H WHILE AWAKE PRN PRN Reason: sob Atorvastatin Calcium (Atorvastatin Calcium 40 Mg Tablet) 40 mg G-TUBE BEDTIME [facility] Last Admin: 07/13/25 21:38 Dose: 40 mg Bisacodyl (Bisacodyl 10 Mg Supp.Rect) 10 mg IN DAILY PRN PRN Reason: Constipation Calcium Carbonate (Calcium Carbonate 750 Mg Tab.Chew) 750 mg G-TUBE TID PRN PRN Reason: Heartburn Capsaicin (Capsaicin 0.025% Cream 60 Gm Tube) 1 appl TOPICAL TID PRN; Protocol PRN Reason: Pain, Moderate(Pain Scale 4-6) Clozapine (Clozapine 25 Mg Tablet) 50 mg G-TUBE DAILY@1100 [facility] Last Admin: 07/13/25 11:07 Dose: 50 mg Clozapine (Clozapine 100 Mg Tablet) 200 mg G-TUBE DAILY@1700 [facility] Last Admin: 07/13/25 17:11 Dose: 200 mg Doxazosin Mesylate (Doxazosin Mesylate 1 Mg Tablet) 1 mg PO BEDTIME [facility]; Protocol Last Admin: 07/13/25 21:38 Dose: 1 mg Famotidine (Famotidine 20 Mg Tablet) 20 mg G-TUBE BID [facility] Last Admin: 07/13/25 21:39 Dose: 20 mg Gabapentin (Gabapentin 300 Mg Capsule) 300 mg G-TUBE BEDTIME [facility] Last Admin: 07/13/25 21:39 Dose: 300 mg Gabapentin (Gabapentin 100 Mg Capsule) 100 mg G-TUBE DAILY [facility] Last Admin: 07/13/25 08:59 Dose: 100 mg Guaifenesin (Guaifenesin 200 Mg/10 Ml 10 Ml Liquid) 10 ml G-TUBE Q4H PRN PRN Reason: Cough Haloperidol (Haloperidol 1 Mg Tablet) 2 mg G-TUBE BID PRN PRN Reason: Agitation Haloperidol (Haloperidol 1 Mg Tablet) 1 mg G-TUBE DAILY [facility] Last Admin: 07/13/25 08:59 Dose: 1 mg Haloperidol (Haloperidol 1 Mg Tablet) 3 mg G-TUBE BEDTIME [facility] Last Admin: 07/13/25 21:38 Dose: 3 mg Lidocaine (Lidocaine 4 % Patch Adh..Patch) 1 patch TRANSDERMA DAILY [facility]; Protocol Last Admin: 07/13/25 08:59 Dose: 1 patch Lisinopril (Lisinopril 2.5 Mg Tablet) 2.5 mg PO DAILY [facility]; Protocol Last Admin: 07/13/25 08:58 Dose: 2.5 mg Multivitamins/Minerals (Multivitamin With Minerals Liq 15 Ml Liquid) 15 ml G-TUBE DAILY [facility] Last Admin: 07/13/25 09:00 Dose: 15 ml Polyethylene Glycol (Polyethylene Glycol 3350 17 Gm Powd.Pack) 17 gm G-TUBE DAILY [facility] Last Admin: 07/13/25 08:58 Dose: 17 gm Scopolamine (Scopolamine 1.5 Mg Patch.Td.3) 1.5 mg EAR-BEHIND Q72H [facility] Last Admin: 07/13/25 12:47 Dose: 1.5 mg Simethicone (Simethicone 80 Mg Tab.Chew) 80 mg G-TUBE Q6H PRN PRN Reason: Dyspepsia Tramadol HCl (Tramadol Hcl 50 Mg Tablet) 50 mg G-TUBE Q6H PRN PRN Reason: Pain, Severe (Pain Scale 7-10) Last Admin: 07/14/25 03:41 Dose: 50 mg Trazodone HCl (Trazodone Hcl 50 Mg Tablet) 150 mg G-TUBE BEDTIME [facility] Last Admin: 07/13/25 21:39 Dose: 150 mg Valproic Acid (Valproic Acid Liquid 250 Mg/5 Ml Solution) 1,000 mg G-TUBE BID@1100,1700 [facility] Last Admin: 07/13/25 17:12 Dose: 1,000 mg Allergies Allergies Allergy/AdvReac Type Severity Reaction Status Date / Time No Known Allergies Allergy Verified 06/25/25 21:33 Assessment & Plan Assessment & Plan (1) Schizophrenia: Qualifiers: Schizophrenia type: unspecified Qualified Code(s): F20.9 - Schizophrenia, unspecified Status: Acute Code(s): F20.9 - Schizophrenia, unspecified Plan Mr. Raymundo is a 70 year-old male with hx of schizophrenia who initially was transferred from [facility] to [facility] after prolonged medical admission due to pt presenting with episodes of lethargy, complicated by covid, aspiration pneumonia and exacerbation of psychiatric condition including increase paranoid delusions towards his brother which then led to him feeling suicidal. He went to medical floor due to lethargy and apnea and difficulty managing excessive secretions. He was found to have severe sleep apnea. He was started on CPAP 5-20 cm auto mode. He is now back on sergio unit, presenting more paranoid than first time, accusatory and mistrustful of staff and this mortgage underwriter. He also presents with grandiose delusions of wanting to be president and erotomanic delusions of marrying a famous poet he does not know but some how is certain she wants to be with him too. Speech therapy continues to recommend G-tube due to severe risk of aspiration. Pt demands that g-tube be removed but after further assessment of his understanding of current medical condition and consequences of not having it but does not seem to understand that life expectancy would significantly shorten given complications of aspiration, leading to pneumonia, respiratory failure, sepsis and . Suspect clozapine contributing to dysphagia. 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 Concern in terms of increasing clozapine and worsening dysphagia along with other side effects including drooling, constipation. He is on low dose haldol although he has parkinsonism- we could add second antipsychotic that is lower potency. Will call brother to discuss options as pt does not seem to fully understand medical conditions, show appreciation of risk versus benefit despite being able to verbalize a preference/choice. PLAN 07/02 noted very low level of depakote despite medication being given and dose should reflect higher level. Will check depakote level again tomorrow and adjust dose. concern also for clozapine level also going down if some is being lost in tubing, or however is being metabolized. invoke HCP. per brother it appears HCP was affirmed by the court- we don't have copy of this. 07/03 Depakote level (22.8) is low despite getting 500mg G-tube BID dose, unclear if some lost in tubing. will increase dose of depakote to 1000mg g-tube BID, increase clozapine to 50mg g-tube am and 200mg qhs. 07/04, 07/05: no changes today, check VPA level this week 07/06 continue medications, will check depakote tomorrow AM. 07/07 d/c ativan, depakote level despite dose adjustment to 1000mg gtube BID continues to be low (33).change depakote to be given when he is not receiving feedings. 07/08 continue tx. 07/09 continue tx. 07/10 continue tx. 07/11: continue current management and treatment plan. 07/12: continue current management and treatment plan. 07/13 continue tx. will check depakote tomorrow AM. pending transfer to [facility] 07/14 continue tx.depakote level continues to be low. pending transferred to LTC/STR. no aggression nor combative behaviors. Reason for continued inpatient stay Substantial Risk for: inability to function Time Spent With Patient Time: Total time managing care of this patient today ____ minutes.
[2025-07-14] MEDS: Valproic Acid Liquid 250 MG/5 ML SOLUTION 1000 MG G-TUBE ×2 (11:59→17:10)
[2025-07-14 20:00] VITALS: BP 130/76; PULSE 97; RESP 18; TEMP 36.4; O2SAT 97
[2025-07-15 07:44] LABS: Neut%MD 65.1 %; WBCANC 6.2 X10*3/uL
[2025-07-15 08:00] VITALS: BP 120/66; PULSE 100; RESP 18; TEMP 36.7; O2SAT 96
--- NOTE | 2025-07-15 09:40 | MHC.CLN ---
F/U CONTINUES NPO. TOLERATING TUBE FEEDING AT MAX GOAL RATE WITH NO NOTED CONCERNS.
[2025-07-15] MEDS: Multivitamin with Minerals Liq 15 ML LIQUID G-TUBE (09:48)
[2025-07-15 09:49] VITALS: BP 120/66
[2025-07-15] MEDS: Lidocaine 4 % Patch ADH..PATCH 1 PATCH TRANSDERMA (09:52)
[2025-07-15] MEDS: Valproic Acid Liquid 250 MG/5 ML SOLUTION 1000 MG G-TUBE ×2 (11:47→17:22)
--- NOTE | 2025-07-15 15:31 | MHC.SLORD ---
Speech Language Pathology Order Status: MANAGEMENT INFORMATION SYSTEMS DIRECTOR did not see pt today.
--- NOTE | 2025-07-15 17:23 | P.PNPSI_ITS ---
Subjective Subjective Date of Service: 07/15/25 Reason For Visit: paranoid delusions Subjective Notes: Conditional Voluntary Interim History: Pt sleeping through the night. He continues to express frustration about still being on the unit, not being transferred to [facility], nor working more extensively with PT. He reports I'm in an exceptional physical shape ... this advertising copy writer reminded him that he is total care and not able to complete ADLs. He also reports he does not want the g-tube, does not think his swallowing is as impaired. Less paranoid towards brother. taking medications. Review of Systems Review of Systems Pt denies abdominal pain. No SOB. Noted drooling. No chest pain. NO SOB. No difficulty breathing. Yes all other systems are reviewed and are negative Mental Status Exam Mental Status Exam Narrative: Appearance: wearing casual clothing, fair hygiene, in NAD. Behavior: guarded and suspicious Psychomotor: resting tremors of both hands noted. Speech: clear, normal rate/rhythm/volume, spontaneous TP: disorganized TC: grandiose delusions of working to become president. Mood: okay Affect: blunted SI: denies HI: denies VH/AH: denied today Delusions: paranoia towards staff Insight/judgment: impaired Memory/cog: oriented to person, time; oriented to place, month, situation. MOCA completed on 07/15/25: , ACL 3.2 Diagnostics Vital Signs (24Hr): Vital Signs - 24 hr 07/14/25 20:00 07/15/25 08:00 07/15/25 09:49 Temperature 97.5 F 98.1 F Pulse Rate 97 100 Respiratory Rate 18 18 Blood Pressure 130/76 120/66 120/66 Pulse Oximetry 97 96 Oxygen Delivery Method Room Air Room Air BMI result Body Mass Index 21.5 Labs 07/01/25 10:35 Labs: Laboratory Results - last 48 hr 07/14/25 07/15/25 07:59 07:16 Absolute Neuts (auto) 4.0 Valproic Acid 26.0 L Medications Medications Current Medications Acetaminophen (Acetaminophen 325 Mg Tablet) 975 mg G-TUBE TID [facility] Last Admin: 07/15/25 15:21 Dose: 975 mg Albuterol/Ipratropium (Albuterol/Iprat 2.5/0.5mg 3 Ml Ampul.Neb) 3 ml INHALE Q4H PRN PRN Reason: Shortness of Breath Albuterol/Ipratropium (Albuterol/Iprat 2.5/0.5mg 3 Ml Ampul.Neb) 3 ml INHALE RQ4H WHILE AWAKE PRN PRN Reason: sob Atorvastatin Calcium (Atorvastatin Calcium 40 Mg Tablet) 40 mg G-TUBE BEDTIME [facility] Last Admin: 07/14/25 21:01 Dose: 40 mg Bisacodyl (Bisacodyl 10 Mg Supp.Rect) 10 mg AK DAILY PRN PRN Reason: Constipation Calcium Carbonate (Calcium Carbonate 750 Mg Tab.Chew) 750 mg G-TUBE TID PRN PRN Reason: Heartburn Capsaicin (Capsaicin 0.025% Cream 60 Gm Tube) 1 appl TOPICAL TID PRN; Protocol PRN Reason: Pain, Moderate(Pain Scale 4-6) Clozapine (Clozapine 25 Mg Tablet) 50 mg G-TUBE DAILY@1100 [facility] Last Admin: 07/15/25 11:47 Dose: 50 mg Clozapine (Clozapine 100 Mg Tablet) 200 mg G-TUBE DAILY@1700 [facility] Last Admin: 07/14/25 16:08 Dose: 200 mg Doxazosin Mesylate (Doxazosin Mesylate 1 Mg Tablet) 1 mg PO BEDTIME [facility]; Protocol Last Admin: 07/14/25 21:00 Dose: 1 mg Famotidine (Famotidine 20 Mg Tablet) 20 mg G-TUBE BID [facility] Last Admin: 07/15/25 09:49 Dose: 20 mg Gabapentin (Gabapentin 300 Mg Capsule) 300 mg G-TUBE BEDTIME [facility] Last Admin: 07/14/25 21:00 Dose: 300 mg Gabapentin (Gabapentin 100 Mg Capsule) 100 mg G-TUBE DAILY [facility] Last Admin: 07/15/25 09:49 Dose: 100 mg Guaifenesin (Guaifenesin 200 Mg/10 Ml 10 Ml Liquid) 10 ml G-TUBE Q4H PRN PRN Reason: Cough Haloperidol (Haloperidol 1 Mg Tablet) 2 mg G-TUBE BID PRN PRN Reason: Agitation Haloperidol (Haloperidol 1 Mg Tablet) 1 mg G-TUBE DAILY [facility] Last Admin: 07/15/25 09:49 Dose: 1 mg Haloperidol (Haloperidol 1 Mg Tablet) 3 mg G-TUBE BEDTIME [facility] Last Admin: 07/14/25 21:00 Dose: 3 mg Lidocaine (Lidocaine 4 % Patch Adh..Patch) 1 patch TRANSDERMA DAILY [facility]; Protocol Last Admin: 07/15/25 09:52 Dose: 1 patch Lisinopril (Lisinopril 2.5 Mg Tablet) 2.5 mg PO DAILY [facility]; Protocol Last Admin: 07/15/25 09:49 Dose: 2.5 mg Multivitamins/Minerals (Multivitamin With Minerals Liq 15 Ml Liquid) 15 ml G- TUBE DAILY [facility] Last Admin: 07/15/25 09:48 Dose: 15 ml Polyethylene Glycol (Polyethylene Glycol 3350 17 Gm Powd.Pack) 17 gm G-TUBE DAILY [facility] Last Admin: 07/15/25 09:52 Dose: 17 gm Scopolamine (Scopolamine 1.5 Mg Patch.Td.3) 1.5 mg EAR-BEHIND Q72H [facility] Last Admin: 07/13/25 12:47 Dose: 1.5 mg Simethicone (Simethicone 80 Mg Tab.Chew) 80 mg G-TUBE Q6H PRN PRN Reason: Dyspepsia Tramadol HCl (Tramadol Hcl 50 Mg Tablet) 50 mg G-TUBE Q6H PRN PRN Reason: Pain, Severe (Pain Scale 7-10) Last Admin: 07/14/25 03:41 Dose: 50 mg Trazodone HCl (Trazodone Hcl 50 Mg Tablet) 150 mg G-TUBE BEDTIME [facility] Last Admin: 07/14/25 21:00 Dose: 150 mg Valproic Acid (Valproic Acid Liquid 250 Mg/5 Ml Solution) 1,000 mg G-TUBE BID@1100,1700 [facility] Last Admin: 07/15/25 11:47 Dose: 1,000 mg Allergies Allergies Allergy/AdvReac Type Severity Reaction Status Date / Time No Known Allergies Allergy Verified 06/25/25 21:33 Assessment & Plan Assessment & Plan (1) Schizophrenia: Qualifiers: Schizophrenia type: unspecified Qualified Code(s): F20.9 - Schizophrenia, unspecified Status: Acute Code(s): F20.9 - Schizophrenia, unspecified Plan Mr. Raymunod is a 70 year-old male with hx of schizophrenia who initially was transferred from [facility] to [facility] after prolonged medical admission due to pt presenting with episodes of lethargy, complicated by covid, aspiration pneumonia and exacerbation of psychiatric condition including increase paranoid delusions towards his brother which then led to him feeling suicidal. He went to medical floor due to lethargy and apnea and difficulty managing excessive secretions. He was found to have severe sleep apnea. He was started on CPAP 5- 20 cm auto mode. He is now back on sergio unit, presenting more paranoid than first time, accusatory and mistrustful of staff and this advertising copy writer. He also presents with grandiose delusions of wanting to be president and erotomanic delusions of marrying a famous poet he does not know but some how is certain she wants to be with him too. Speech therapy continues to recommend G-tube due to severe risk of aspiration. Pt demands that g-tube be removed but after further assessment of his understanding of current medical condition and consequences of not having it but does not seem to understand that life expectancy would significantly shorten given complications of aspiration, leading to pneumonia, respiratory failure, sepsis and . Suspect clozapine contributing to dysphagia. 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 Concern in terms of increasing clozapine and worsening dysphagia along with other side effects including drooling, constipation. He is on low dose haldol although he has parkinsonism- we could add second antipsychotic that is lower potency. Will call brother to discuss options as pt does not seem to fully understand medical conditions, show appreciation of risk versus benefit despite being able to verbalize a preference/choice. PLAN 07/02 noted very low level of depakote despite medication being given and dose should reflect higher level. Will check depakote level again tomorrow and adjust dose. concern also for clozapine level also going down if some is being lost in tubing, or however is being metabolized. invoke HCP. per brother it appears HCP was affirmed by the court- we don't have copy of this. 07/03 Depakote level (22.8) is low despite getting 500mg G-tube BID dose, unclear if some lost in tubing. will increase dose of depakote to 1000mg g-tube BID, increase clozapine to 50mg g-tube am and 200mg qhs. 07/04, 07/05: no changes today, check VPA level this week 07/06 continue medications, will check depakote tomorrow AM. 07/07 d/c ativan, depakote level despite dose adjustment to 1000mg gtube BID continues to be low (33).change depakote to be given when he is not receiving feedings. 07/08 continue tx. 07/09 continue tx. 07/10 continue tx. 07/11: continue current management and treatment plan. 07/12: continue current management and treatment plan. 07/13 continue tx. will check depakote tomorrow AM. pending transfer to [facility]. 07/14 continue tx.depakote level continues to be low. pending transferred to LTC/STR. no aggression nor combative behaviors. 07/15 continue tx. Reason for continued inpatient stay Substantial Risk for: inability to function Time Spent With Patient Time: Total time managing care of this patient today ____ minutes.
[2025-07-15 20:00] VITALS: BP 117/68; PULSE 101; RESP 18; TEMP 36.7; O2SAT 97
[2025-07-15 21:15] VITALS: BP 117/68
[2025-07-16 08:00] VITALS: BP 121/67; PULSE 88; RESP 18; TEMP 36.4; O2SAT 95
[2025-07-16 08:45] VITALS: BP 121/67
[2025-07-16] MEDS: Multivitamin with Minerals Liq 15 ML LIQUID G-TUBE (08:45)
[2025-07-16] MEDS: Lidocaine 4 % Patch ADH..PATCH 1 PATCH TRANSDERMA (08:53)
--- NOTE | 2025-07-16 09:47 | P.PNPSI_ITS ---
Subjective Subjective Date of Service: 07/16/25 Reason For Visit: paranoid delusions Subjective Notes: Conditional Voluntary Healthcare Proxy: Yes Interim History: Pt sleeping through the night. He reported shoulder pain and not responding as well to tramadol as it did last week. Less paranoid delusions towards staff and this story writer but upset about still being here. discussed with ST to complete new Modified barium- although not clinically indicated as no improvement but requested by HCP and pt for reassurance that there has not been improvement. still waiting for facility to accept him. Review of Systems Review of Systems Pt denies abdominal pain. No SOB. Noted drooling. No chest pain. NO SOB. No difficulty breathing. Yes all other systems are reviewed and are negative Mental Status Exam Mental Status Exam Narrative: Appearance: wearing casual clothing, fair hygiene, in NAD. Behavior: guarded and suspicious Psychomotor: resting tremors of both hands noted. Speech: clear, normal rate/rhythm/volume, spontaneous TP: disorganized TC: grandiose delusions of working to become president. Mood: okay Affect: blunted SI: denies HI: denies VH/AH: denied today Delusions: paranoia towards staff Insight/judgment: impaired Memory/cog: oriented to person, time; oriented to place, month, situation. MOCA completed on 07/15/25: , ACL 3.2 Diagnostics Vital Signs (24Hr): Vital Signs - 24 hr 07/15/25 09:49 07/15/25 20:00 07/15/25 21:15 Temperature 98.0 F Pulse Rate 101 H Respiratory Rate 18 Blood Pressure 120/66 117/68 117/68 Pulse Oximetry 97 Oxygen Delivery Method Room Air 07/16/25 08:00 07/16/25 08:45 Temperature 97.5 F Pulse Rate 88 Respiratory Rate 18 Blood Pressure 121/67 121/67 Pulse Oximetry 95 Oxygen Delivery Method Room Air BMI result Body Mass Index 21.5 Labs 07/17/25 13:46 07/17/25 13:46 Labs: Laboratory Results - last 48 hr 07/15/25 07:16 Absolute Neuts (auto) 4.0 Medications Medications Current Medications Acetaminophen (Acetaminophen 325 Mg Tablet) 975 mg G-TUBE TID [facility] Last Admin: 07/16/25 08:49 Dose: 975 mg Albuterol/Ipratropium (Albuterol/Iprat 2.5/0.5mg 3 Ml Ampul.Neb) 3 ml INHALE Q4H PRN PRN Reason: Shortness of Breath Albuterol/Ipratropium (Albuterol/Iprat 2.5/0.5mg 3 Ml Ampul.Neb) 3 ml INHALE RQ4H WHILE AWAKE PRN PRN Reason: sob Atorvastatin Calcium (Atorvastatin Calcium 40 Mg Tablet) 40 mg G-TUBE BEDTIME [facility] Last Admin: 07/15/25 21:12 Dose: 40 mg Bisacodyl (Bisacodyl 10 Mg Supp.Rect) 10 mg SD DAILY PRN PRN Reason: Constipation Calcium Carbonate (Calcium Carbonate 750 Mg Tab.Chew) 750 mg G-TUBE TID PRN PRN Reason: Heartburn Capsaicin (Capsaicin 0.025% Cream 60 Gm Tube) 1 appl TOPICAL TID PRN; Protocol PRN Reason: Pain, Moderate(Pain Scale 4-6) Last Admin: 07/16/25 00:39 Dose: 1 appl Clozapine (Clozapine 25 Mg Tablet) 50 mg G-TUBE DAILY@1100 [facility] Last Admin: 07/15/25 11:47 Dose: 50 mg Clozapine (Clozapine 100 Mg Tablet) 200 mg G-TUBE DAILY@1700 [facility] Last Admin: 07/15/25 17:22 Dose: 200 mg Doxazosin Mesylate (Doxazosin Mesylate 1 Mg Tablet) 1 mg PO BEDTIME [facility]; Protocol Last Admin: 07/15/25 21:15 Dose: 1 mg Famotidine (Famotidine 20 Mg Tablet) 20 mg G-TUBE BID [facility] Last Admin: 07/16/25 08:45 Dose: 20 mg Gabapentin (Gabapentin 300 Mg Capsule) 300 mg G-TUBE BEDTIME [facility] Last Admin: 07/15/25 21:11 Dose: 300 mg Gabapentin (Gabapentin 100 Mg Capsule) 100 mg G-TUBE DAILY [facility] Last Admin: 07/16/25 08:45 Dose: 100 mg Guaifenesin (Guaifenesin 200 Mg/10 Ml 10 Ml Liquid) 10 ml G-TUBE Q4H PRN PRN Reason: Cough Haloperidol (Haloperidol 1 Mg Tablet) 2 mg G-TUBE BID PRN PRN Reason: Agitation Haloperidol (Haloperidol 1 Mg Tablet) 1 mg G-TUBE DAILY [facility] Last Admin: 07/16/25 08:45 Dose: 1 mg Haloperidol (Haloperidol 1 Mg Tablet) 3 mg G-TUBE BEDTIME [facility] Last Admin: 07/15/25 21:14 Dose: 3 mg Lidocaine (Lidocaine 4 % Patch Adh..Patch) 1 patch TRANSDERMA DAILY [facility]; Protocol Last Admin: 07/16/25 08:53 Dose: 1 patch Lisinopril (Lisinopril 2.5 Mg Tablet) 2.5 mg PO DAILY [facility]; Protocol Last Admin: 07/16/25 08:45 Dose: 2.5 mg Multivitamins/Minerals (Multivitamin With Minerals Liq 15 Ml Liquid) 15 ml G- TUBE DAILY [facility] Last Admin: 07/16/25 08:45 Dose: 15 ml Polyethylene Glycol (Polyethylene Glycol 3350 17 Gm Powd.Pack) 17 gm G-TUBE DAILY [facility] Last Admin: 07/16/25 08:54 Dose: 17 gm Scopolamine (Scopolamine 1.5 Mg Patch.Td.3) 1.5 mg EAR-BEHIND Q72H [facility] Last Admin: 07/13/25 12:47 Dose: 1.5 mg Simethicone (Simethicone 80 Mg Tab.Chew) 80 mg G-TUBE Q6H PRN PRN Reason: Dyspepsia Tramadol HCl (Tramadol Hcl 50 Mg Tablet) 50 mg G-TUBE Q6H PRN PRN Reason: Pain, Severe (Pain Scale 7-10) Last Admin: 07/15/25 21:11 Dose: 50 mg Trazodone HCl (Trazodone Hcl 50 Mg Tablet) 150 mg G-TUBE BEDTIME [facility] Last Admin: 07/15/25 21:10 Dose: 150 mg Valproic Acid (Valproic Acid Liquid 250 Mg/5 Ml Solution) 1,000 mg G-TUBE BID@1100,1700 [facility] Last Admin: 07/15/25 17:22 Dose: 1,000 mg Allergies Allergies Allergy/AdvReac Type Severity Reaction Status Date / Time No Known Allergies Allergy Verified 06/25/25 21:33 Assessment & Plan Assessment & Plan (1) Schizophrenia: Qualifiers: Schizophrenia type: unspecified Qualified Code(s): F20.9 - Schizophrenia, unspecified Status: Acute Code(s): F20.9 - Schizophrenia, unspecified Plan Mr. Raymundo is a 70 year-old male with hx of schizophrenia who initially was transferred from [facility] to [facility] after prolonged medical admission due to pt presenting with episodes of lethargy, complicated by covid, aspiration pneumonia and exacerbation of psychiatric condition including increase paranoid delusions towards his brother which then led to him feeling suicidal. He went to medical floor due to lethargy and apnea and difficulty managing excessive secretions. He was found to have severe sleep apnea. He was started on CPAP 5- 20 cm auto mode. He is now back on sergio unit, presenting more paranoid than first time, accusatory and mistrustful of staff and this story writer. He also presents with grandiose delusions of wanting to be president and erotomanic delusions of marrying a famous poet he does not know but some how is certain she wants to be with him too. Speech therapy continues to recommend G-tube due to severe risk of aspiration. Pt demands that g-tube be removed but after further assessment of his understanding of current medical condition and consequences of not having it but does not seem to understand that life expectancy would significantly shorten given complications of aspiration, leading to pneumonia, respiratory failure, sepsis and . Suspect clozapine contributing to dysphagia. 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 Concern in terms of increasing clozapine and worsening dysphagia along with other side effects including drooling, constipation. He is on low dose haldol although he has parkinsonism- we could add second antipsychotic that is lower potency. Will call brother to discuss options as pt does not seem to fully understand medical conditions, show appreciation of risk versus benefit despite being able to verbalize a preference/choice. PLAN 07/02 noted very low level of depakote despite medication being given and dose should reflect higher level. Will check depakote level again tomorrow and adjust dose. concern also for clozapine level also going down if some is being lost in tubing, or however is being metabolized. invoke HCP. per brother it appears HCP was affirmed by the court- we don't have copy of this. 07/03 Depakote level (22.8) is low despite getting 500mg G-tube BID dose, unclear if some lost in tubing. will increase dose of depakote to 1000mg g-tube BID, increase clozapine to 50mg g-tube am and 200mg qhs. 07/04, 07/05: no changes today, check VPA level this week 07/06 continue medications, will check depakote tomorrow AM. 07/07 d/c ativan, depakote level despite dose adjustment to 1000mg gtube BID continues to be low (33).change depakote to be given when he is not receiving feedings. 07/08 continue tx. 07/09 continue tx. 07/10 continue tx. 07/11: continue current management and treatment plan. 07/12: continue current management and treatment plan. 07/13 continue tx. will check depakote tomorrow AM. pending transfer to STR. 07/14 continue tx.depakote level continues to be low. pending transferred to LTC/STR. no aggression nor combative behaviors. 07/15 continue tx. 07/16 continue tx. Reason for continued inpatient stay Substantial Risk for: inability to function Time Spent With Patient Time: Total time managing care of this patient today ____ minutes.
[2025-07-16 10:28] VITALS: BMI 22.6
[2025-07-16] MEDS: Valproic Acid Liquid 250 MG/5 ML SOLUTION 1000 MG G-TUBE ×2 (11:27→17:05)
[2025-07-16 20:00] VITALS: BP 95/60; PULSE 100; RESP 18; TEMP 36; O2SAT 96
--- NOTE | 2025-07-17 07:14 | PC.NURSE ---
Pt BP 95/60, Doxazosin 1mg held.
[2025-07-17 08:00] VITALS: BP 115/63; PULSE 92; TEMP 36.1; O2SAT 98
[2025-07-17] MEDS: Multivitamin with Minerals Liq 15 ML LIQUID G-TUBE (08:12)
[2025-07-17] MEDS: Lidocaine 4 % Patch ADH..PATCH 1 PATCH TRANSDERMA (08:13)
--- NOTE | 2025-07-17 10:06 | PC.NURSE ---
GTF stopped at 10a as ordered. GT flushed.
[2025-07-17] MEDS: Valproic Acid Liquid 250 MG/5 ML SOLUTION 1000 MG G-TUBE ×2 (10:07→16:28)
--- NOTE | 2025-07-17 12:14 | MHC.CLN ---
F/U CONTINUES NPO. TOLERATING TUBE FEEDING AT MAX GOAL RATE WITH NO NOTED CONCERNS.
[2025-07-17 13:57] LABS: MANUAL DIFF FLAG NO
[2025-07-17 14:01] LABS: Hematocrit 35.9 % (42.0-52.0); Hemoglobin 12.1 g/dl (14.0-18.0); Imm Gran Abs Auto 0.09 X10*3/uL (0.00-0.03); Imm Gran Pct Auto 1.1 % (0.0-0.4); Lymphocytes Absolute Auto 1.3 X10*3/uL (1.2-4.9); Mean Corpuscular HGB Conc 33.7 g/dl (31.0-36.0); Mean Corpuscular Hemoglobin 31.4 pg (27.0-33.0); Mean Corpuscular Volume 93.2 fL (80.0-98.0); NRBC Abs Auto 0.000 X10*3/uL (0.0-0.012); NRBC Pct Auto 0.0 /100WBC (0.0-0.2); Platelet Count 257 X10*3/uL (160-400); Red Blood Count 3.85 X10*6/uL (4.60-5.80); White Blood Count 8.5 X10*3/uL (4.8-10.8)
[2025-07-17 14:15] LABS: Alanine Aminotransferase 11 U/L (0-40); Albumin Level 3.8 g/dL (3.5-5.0); Alkaline Phosphatase 109 U/L (39-117); Anion Gap 11 (12-20); Aspartate Amino Transferase 19 U/L (5-37); Blood Urea Nitrogen 28 mg/dL (9-16); Calcium 9.8 mg/dL (8.4-10.2); Carbon Dioxide 34 mmol/L (22-29); Chloride 103 mmol/L (96-108); Creatinine Clr Calc Pharmacy 84.3; Estimated Glomerular Filt Rate > 60; Magnesium 2.1 mg/dL (1.6-2.6); Potassium 4.5 mmol/L (3.3-5.1); Sodium 143 mmol/L (135-145); Total Protein 6.8 g/dL (6.5-8.0)
[2025-07-17 15:55] VITALS: BP 115/63; PULSE 92; O2SAT 98
--- NOTE | 2025-07-17 16:54 | HO.PSYCHPN ---
Subjective Subjective Date of Service: 07/17/25 Reason For Visit: paranoid delusions Subjective Notes: Conditional Voluntary Healthcare Proxy: Yes Interim History: Pt sleeping through the night. Less paranoid towards brother and staff but his ability to make medical decisions continues to be impaired in the sense that he is not able to fully articulate understanding and appreciation of risks versus benefits of accepting and rejecting interventions. Spoke with his brother- who is HCP- Delvin about results of MOCA/ACL which do show significant decline. ALso discussed with HCP- that it is the clinical opinion of ST that need for g-tube may be director long term care with no expectation to improve. HCP does say that he would assume some risk involve with oral intake for pleasure- we discussed again risk of aspiration, complications including aspiration pneumonia, sepsis and . Reached out to SP- to discuss measures to introduce PO in addition to g-tube- this will have to wait until Sunday as ST will have to be present during time he is reintroduce to po. Also, spoke with HCP about the fact that he is currently total care, wheelchair bound and unclear benefit of STR to drastically change his mobility. Review of Systems Review of Systems Pt denies abdominal pain. No SOB. Noted drooling. No chest pain. NO SOB. No difficulty breathing. Yes all other systems are reviewed and are negative Mental Status Exam Mental Status Exam Narrative: Appearance: wearing casual clothing, fair hygiene, in NAD. Behavior: guarded and suspicious Psychomotor: resting tremors of both hands noted. Speech: clear, normal rate/rhythm/volume, spontaneous TP: disorganized TC: grandiose delusions of working to become president. Mood: okay Affect: blunted SI: denies HI: denies VH/AH: denied today Delusions: paranoia towards staff Insight/judgment: impaired Memory/cog: oriented to person, time; oriented to place, month, situation. MOCA completed on 07/15/25: , ACL 3.2 Diagnostics Vital Signs (24Hr): Vital Signs - 24 hr 07/16/25 20:00 07/17/25 08:00 07/17/25 15:55 Temperature 96.8 F 97 F Pulse Rate 100 92 92 Respiratory Rate 18 Blood Pressure 95/60 115/63 115/63 Pulse Oximetry 96 98 98 Oxygen Delivery Method Room Air Room Air BMI result Body Mass Index 22.6 Labs 07/17/25 13:46 07/17/25 13:46 Labs: Laboratory Results - last 48 hr 07/17/25 13:46 WBC 8.5 RBC 3.85 L Hgb 12.1 L Hct 35.9 L MCV 93.2 MCH 31.4 MCHC 33.7 RDW 15.6 Plt Count 257 D MPV 9.9 Immature Gran % (Auto) 1.1 H Neut % (Auto) 74.4 H Lymph % (Auto) 15.0 L Hancock % (Auto) 9.3 Eos % (Auto) 0.0 Baso % (Auto) 0.2 Lymph # (Auto) 1.3 Hancock # (Auto) 0.8 Eos # (Auto) 0.0 Baso # (Auto) 0.0 Abs Immat Gran (auto) 0.09 H Absolute Neuts (auto) 6.3 Absolute Nucleated RBC 0.000 Nucleated RBC % (auto) 0.0 Sodium 143 Potassium 4.5 Chloride 103 Carbon Dioxide 34 H Anion Gap 11 L BUN 28 H Creatinine 0.87 Estim Creat Clear Calc 84.3 Estimated GFR > 60 Random Glucose 90 Calcium 9.8 Magnesium 2.1 Total Bilirubin 0.2 AST 19 ALT 11 Alkaline Phosphatase 109 Total Protein 6.8 Albumin 3.8 Medications Medications Current Medications Acetaminophen (Acetaminophen 325 Mg Tablet) 975 mg G-TUBE TID [facility] Last Admin: 07/17/25 14:55 Dose: Not Given Albuterol/Ipratropium (Albuterol/Iprat 2.5/0.5mg 3 Ml Ampul.Neb) 3 ml INHALE Q4H PRN PRN Reason: Shortness of Breath Albuterol/Ipratropium (Albuterol/Iprat 2.5/0.5mg 3 Ml Ampul.Neb) 3 ml INHALE RQ4H WHILE AWAKE PRN PRN Reason: sob Atorvastatin Calcium (Atorvastatin Calcium 40 Mg Tablet) 40 mg G-TUBE BEDTIME [facility] Last Admin: 07/16/25 20:41 Dose: 40 mg Bisacodyl (Bisacodyl 10 Mg Supp.Rect) 10 mg [place] DAILY PRN PRN Reason: Constipation Calcium Carbonate (Calcium Carbonate 750 Mg Tab.Chew) 750 mg G-TUBE TID PRN PRN Reason: Heartburn Capsaicin (Capsaicin 0.025% Cream 60 Gm Tube) 1 appl TOPICAL TID PRN; Protocol PRN Reason: Pain, Moderate(Pain Scale 4-6) Last Admin: 07/16/25 00:39 Dose: 1 appl Clozapine (Clozapine 25 Mg Tablet) 50 mg G-TUBE DAILY@1100 [facility] Last Admin: 07/17/25 10:07 Dose: 50 mg Clozapine (Clozapine 100 Mg Tablet) 200 mg G-TUBE DAILY@1700 [facility] Last Admin: 07/17/25 16:27 Dose: 200 mg Doxazosin Mesylate (Doxazosin Mesylate 1 Mg Tablet) 1 mg PO BEDTIME [facility]; Protocol Last Admin: 07/16/25 22:58 Dose: Not Given Famotidine (Famotidine 20 Mg Tablet) 20 mg G-TUBE BID [facility] Last Admin: 07/17/25 08:12 Dose: 20 mg Gabapentin (Gabapentin 300 Mg Capsule) 300 mg G-TUBE BEDTIME [facility] Last Admin: 07/16/25 20:41 Dose: 300 mg Gabapentin (Gabapentin 100 Mg Capsule) 100 mg G-TUBE DAILY [facility] Last Admin: 07/17/25 08:13 Dose: 100 mg Guaifenesin (Guaifenesin 200 Mg/10 Ml 10 Ml Liquid) 10 ml G-TUBE Q4H PRN PRN Reason: Cough Haloperidol (Haloperidol 1 Mg Tablet) 2 mg G-TUBE BID PRN PRN Reason: Agitation Haloperidol (Haloperidol 1 Mg Tablet) 1 mg G-TUBE DAILY [facility] Last Admin: 07/17/25 08:13 Dose: 1 mg Haloperidol (Haloperidol 1 Mg Tablet) 3 mg G-TUBE BEDTIME [facility] Last Admin: 07/16/25 20:41 Dose: 3 mg Lidocaine (Lidocaine 4 % Patch Adh..Patch) 1 patch TRANSDERMA DAILY [facility]; Protocol Last Admin: 07/17/25 08:13 Dose: 1 patch Lisinopril (Lisinopril 2.5 Mg Tablet) 2.5 mg PO DAILY [facility]; Protocol Last Admin: 07/17/25 08:13 Dose: 2.5 mg Multivitamins/Minerals (Multivitamin With Minerals Liq 15 Ml Liquid) 15 ml G-TUBE DAILY [facility] Last Admin: 07/17/25 08:12 Dose: 15 ml Scopolamine (Scopolamine 1.5 Mg Patch.Td.3) 1.5 mg EAR-BEHIND Q72H [facility] Last Admin: 07/16/25 13:16 Dose: 1.5 mg Simethicone (Simethicone 80 Mg Tab.Chew) 80 mg G-TUBE Q6H PRN PRN Reason: Dyspepsia Tramadol HCl (Tramadol Hcl 50 Mg Tablet) 50 mg G-TUBE Q6H PRN PRN Reason: Pain, Severe (Pain Scale 7-10) Last Admin: 07/17/25 03:33 Dose: 50 mg Trazodone HCl (Trazodone Hcl 50 Mg Tablet) 150 mg G-TUBE BEDTIME [facility] Last Admin: 07/16/25 20:41 Dose: 150 mg Valproic Acid (Valproic Acid Liquid 250 Mg/5 Ml Solution) 1,000 mg G-TUBE BID@1100,1700 [facility] Last Admin: 07/17/25 16:28 Dose: 1,000 mg Allergies Allergies Allergy/AdvReac Type Severity Reaction Status Date / Time No Known Allergies Allergy Verified 06/25/25 21:33 Assessment & Plan Assessment & Plan (1) Schizophrenia: Qualifiers: Schizophrenia type: unspecified Qualified Code(s): F20.9 - Schizophrenia, unspecified Status: Acute Code(s): F20.9 - Schizophrenia, unspecified Plan Mr. Raymundo is a 70 year-old male with hx of schizophrenia who initially was transferred [facility] after prolonged medical admission due to pt presenting with episodes of lethargy, complicated by covid, aspiration pneumonia and exacerbation of psychiatric condition including increase paranoid delusions towards his brother which then led to him feeling suicidal. He went to medical floor due to lethargy and apnea and difficulty managing excessive secretions. He was found to have severe sleep apnea. He was started on CPAP 5-20 cm auto mode. He is now back on sergio unit, presenting more paranoid than first time, accusatory and mistrustful of staff and this content writer. He also presents with grandiose delusions of wanting to be president and erotomanic delusions of marrying a famous poet he does not know but some how is certain she wants to be with him too. Speech therapy continues to recommend G-tube due to severe risk of aspiration. Pt demands that g-tube be removed but after further assessment of his understanding of current medical condition and consequences of not having it but does not seem to understand that life expectancy would significantly shorten given complications of aspiration, leading to pneumonia, respiratory failure, sepsis and . Suspect clozapine contributing to dysphagia. 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 Concern in terms of increasing clozapine and worsening dysphagia along with other side effects including drooling, constipation. He is on low dose haldol although he has parkinsonism- we could add second antipsychotic that is lower potency. Will call brother to discuss options as pt does not seem to fully understand medical conditions, show appreciation of risk versus benefit despite being able to verbalize a preference/choice. PLAN 07/02 noted very low level of depakote despite medication being given and dose should reflect higher level. Will check depakote level again tomorrow and adjust dose. concern also for clozapine level also going down if some is being lost in tubing, or however is being metabolized. invoke HCP. per brother it appears HCP was affirmed by the court- we don't have copy of this. 07/03 Depakote level (22.8) is low despite getting 500mg G-tube BID dose, unclear if some lost in tubing. will increase dose of depakote to 1000mg g-tube BID, increase clozapine to 50mg g-tube am and 200mg qhs. 07/04, 07/05: no changes today, check VPA level this week 07/06 continue medications, will check depakote tomorrow AM. 07/07 d/c ativan, depakote level despite dose adjustment to 1000mg gtube BID continues to be low (33).change depakote to be given when he is not receiving feedings. 07/08 continue tx. 07/09 continue tx. 07/10 continue tx. 07/11: continue current management and treatment plan. 07/12: continue current management and treatment plan. 07/13 continue tx. will check depakote tomorrow AM. pending transfer to STR. 07/14 continue tx.depakote level continues to be low. pending transferred to LTC/STR. no aggression nor combative behaviors. 07/15 continue tx. 07/16 continue tx. 07/17 continue tx. pending coordination with ST to introduce oral intake for pleasure as something HCP would like to eventually see happening if no improvement in swallowing. DO NOT START ORAL INTAKE OVER THE WEEKEND- WAIT FOR ST ON SUNDAY. Reason for continued inpatient stay Substantial Risk for: inability to function Time Spent With Patient Time: Total time managing care of this patient today ____ minutes.
[2025-07-17 20:00] VITALS: BP 122/71; PULSE 92; RESP 16; TEMP 36.7; O2SAT 96
[2025-07-18 09:38] VITALS: BP 131/69; PULSE 103; RESP 18; TEMP 36.8; O2SAT 95
[2025-07-18] MEDS: Multivitamin with Minerals Liq 15 ML LIQUID G-TUBE (09:42)
[2025-07-18] MEDS: Lidocaine 4 % Patch ADH..PATCH 1 PATCH TRANSDERMA (09:44)
[2025-07-18] MEDS: Valproic Acid Liquid 250 MG/5 ML SOLUTION 1000 MG G-TUBE (11:17)
--- NOTE | 2025-07-18 15:40 | HO.PSYCHPN ---
Subjective Subjective Date of Service: 07/18/25 Reason For Visit: paranoid delusions Interim History: MD asks what MD can do for pt, pt replies, get me a life? states the staff here cannot find him a place to go and he feels this is a terrible hospital. per staff, accepting care. working with PT. mildly depresssed and anxious. g-tube in. Mental Status Exam Mental Status Exam Narrative: Appearance: wearing casual clothing, fair hygiene, in NAD. Behavior: guarded and suspicious Psychomotor: resting tremors of both hands noted. Speech: clear, normal rate/rhythm/volume, spontaneous TP: organized in brief interaction TC: no delusions or paranoia expressed Mood: irritated Affect: blunted SI: none expressed HI: none expressed VH/AH: none expressed Insight/judgment: impaired Memory/cog: oriented to person, time; oriented to place, month, situation. MOCA completed on 07/15/25: 22/30, ACL 3.2 Diagnostics Vital Signs (24Hr): Vital Signs - 24 hr 07/17/25 15:55 07/17/25 20:00 07/18/25 09:38 Temperature 98.1 F 98.2 F Pulse Rate 92 92 103 H Respiratory Rate 16 18 Blood Pressure 115/63 122/71 131/69 Pulse Oximetry 98 96 95 Oxygen Delivery Method Room Air Room Air BMI result Body Mass Index 22.6 Labs 07/17/25 13:46 07/17/25 13:46 Labs: Laboratory Results - last 48 hr 07/17/25 13:46 WBC 8.5 RBC 3.85 L Hgb 12.1 L Hct 35.9 L MCV 93.2 MCH 31.4 MCHC 33.7 RDW 15.6 Plt Count 257 D MPV 9.9 Immature Gran % (Auto) 1.1 H Neut % (Auto) 74.4 H Lymph % (Auto) 15.0 L Tyler % (Auto) 9.3 Eos % (Auto) 0.0 Baso % (Auto) 0.2 Lymph # (Auto) 1.3 Tyler # (Auto) 0.8 Eos # (Auto) 0.0 Baso # (Auto) 0.0 Abs Immat Gran (auto) 0.09 H Absolute Neuts (auto) 6.3 Absolute Nucleated RBC 0.000 Nucleated RBC % (auto) 0.0 Sodium 143 Potassium 4.5 Chloride 103 Carbon Dioxide 34 H Anion Gap 11 L BUN 28 H Creatinine 0.87 Estim Creat Clear Calc 84.3 Estimated GFR > 60 Random Glucose 90 Calcium 9.8 Magnesium 2.1 Total Bilirubin 0.2 AST 19 ALT 11 Alkaline Phosphatase 109 Total Protein 6.8 Albumin 3.8 Medications Medications Current Medications Acetaminophen (Acetaminophen 325 Mg Tablet) 975 mg G-TUBE TID [facility] Last Admin: 07/18/25 14:40 Dose: Not Given Albuterol/Ipratropium (Albuterol/Iprat 2.5/0.5mg 3 Ml Ampul.Neb) 3 ml INHALE Q4H PRN PRN Reason: Shortness of Breath Albuterol/Ipratropium (Albuterol/Iprat 2.5/0.5mg 3 Ml Ampul.Neb) 3 ml INHALE RQ4H WHILE AWAKE PRN PRN Reason: sob Atorvastatin Calcium (Atorvastatin Calcium 40 Mg Tablet) 40 mg G-TUBE BEDTIME [facility] Last Admin: 07/17/25 21:19 Dose: 40 mg Bisacodyl (Bisacodyl 10 Mg Supp.Rect) 10 mg LA DAILY PRN PRN Reason: Constipation Calcium Carbonate (Calcium Carbonate 750 Mg Tab.Chew) 750 mg G-TUBE TID PRN PRN Reason: Heartburn Capsaicin (Capsaicin 0.025% Cream 60 Gm Tube) 1 appl TOPICAL TID PRN; Protocol PRN Reason: Pain, Moderate(Pain Scale 4-6) Last Admin: 07/16/25 00:39 Dose: 1 appl Clozapine (Clozapine 25 Mg Tablet) 50 mg G-TUBE DAILY@1100 [facility] Last Admin: 07/18/25 11:17 Dose: 50 mg Clozapine (Clozapine 100 Mg Tablet) 200 mg G-TUBE DAILY@1700 [facility] Last Admin: 07/17/25 16:27 Dose: 200 mg Doxazosin Mesylate (Doxazosin Mesylate 1 Mg Tablet) 1 mg PO BEDTIME [facility]; Protocol Last Admin: 07/17/25 21:28 Dose: 1 mg Famotidine (Famotidine 20 Mg Tablet) 20 mg G-TUBE BID [facility] Last Admin: 07/18/25 09:44 Dose: 20 mg Gabapentin (Gabapentin 300 Mg Capsule) 300 mg G-TUBE BEDTIME [facility] Last Admin: 07/17/25 21:19 Dose: 300 mg Gabapentin (Gabapentin 100 Mg Capsule) 100 mg G-TUBE DAILY [facility] Last Admin: 07/18/25 09:43 Dose: 100 mg Guaifenesin (Guaifenesin 200 Mg/10 Ml 10 Ml Liquid) 10 ml G-TUBE Q4H PRN PRN Reason: Cough Haloperidol (Haloperidol 1 Mg Tablet) 2 mg G-TUBE BID PRN PRN Reason: Agitation Haloperidol (Haloperidol 1 Mg Tablet) 1 mg G-TUBE DAILY [facility] Last Admin: 07/18/25 09:43 Dose: 1 mg Haloperidol (Haloperidol 1 Mg Tablet) 3 mg G-TUBE BEDTIME [facility] Last Admin: 07/17/25 21:19 Dose: 3 mg Lidocaine (Lidocaine 4 % Patch Adh..Patch) 1 patch TRANSDERMA DAILY [facility]; Protocol Last Admin: 07/18/25 09:44 Dose: 1 patch Lisinopril (Lisinopril 2.5 Mg Tablet) 2.5 mg PO DAILY [facility]; Protocol Last Admin: 07/18/25 09:43 Dose: 2.5 mg Multivitamins/Minerals (Multivitamin With Minerals Liq 15 Ml Liquid) 15 ml G-TUBE DAILY [facility] Last Admin: 07/18/25 09:42 Dose: 15 ml Scopolamine (Scopolamine 1.5 Mg Patch.Td.3) 1.5 mg EAR-BEHIND Q72H [facility] Last Admin: 07/16/25 13:16 Dose: 1.5 mg Simethicone (Simethicone 80 Mg Tab.Chew) 80 mg G-TUBE Q6H PRN PRN Reason: Dyspepsia Tramadol HCl (Tramadol Hcl 50 Mg Tablet) 50 mg G-TUBE Q6H PRN PRN Reason: Pain, Severe (Pain Scale 7-10) Last Admin: 07/17/25 03:33 Dose: 50 mg Trazodone HCl (Trazodone Hcl 50 Mg Tablet) 150 mg G-TUBE BEDTIME [facility] Last Admin: 07/17/25 21:19 Dose: 150 mg Valproic Acid (Valproic Acid Liquid 250 Mg/5 Ml Solution) 1,000 mg G-TUBE BID@1100,1700 [facility] Last Admin: 07/18/25 11:17 Dose: 1,000 mg Allergies Allergies Allergy/AdvReac Type Severity Reaction Status Date / Time No Known Allergies Allergy Verified 06/25/25 21:33 Assessment & Plan Assessment & Plan (1) Schizophrenia: Qualifiers: Schizophrenia type: unspecified Qualified Code(s): F20.9 - Schizophrenia, unspecified Status: Acute Code(s): F20.9 - Schizophrenia, unspecified Plan Mr. Raymundo is a 70 year-old male with hx of schizophrenia who initially was transferred from [facility] to [facility] after prolonged medical admission due to pt presenting with episodes of lethargy, complicated by covid, aspiration pneumonia and exacerbation of psychiatric condition including increase paranoid delusions towards his brother which then led to him feeling suicidal. He went to medical floor due to lethargy and apnea and difficulty managing excessive secretions. He was found to have severe sleep apnea. He was started on CPAP 5-20 cm auto mode. He is now back on sergio unit, presenting more paranoid than first time, accusatory and mistrustful of staff and this credit underwriter. He also presents with grandiose delusions of wanting to be president and erotomanic delusions of marrying a famous poet he does not know but some how is certain she wants to be with him too. Speech therapy continues to recommend G-tube due to severe risk of aspiration. Pt demands that g-tube be removed but after further assessment of his understanding of current medical condition and consequences of not having it but does not seem to understand that life expectancy would significantly shorten given complications of aspiration, leading to pneumonia, respiratory failure, sepsis and . Suspect clozapine contributing to dysphagia. 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 Concern in terms of increasing clozapine and worsening dysphagia along with other side effects including drooling, constipation. He is on low dose haldol although he has parkinsonism- we could add second antipsychotic that is lower potency. Will call brother to discuss options as pt does not seem to fully understand medical conditions, show appreciation of risk versus benefit despite being able to verbalize a preference/choice. PLAN 07/02 noted very low level of depakote despite medication being given and dose should reflect higher level. Will check depakote level again tomorrow and adjust dose. concern also for clozapine level also going down if some is being lost in tubing, or however is being metabolized. invoke HCP. per brother it appears HCP was affirmed by the court- we don't have copy of this. 07/03 Depakote level (22.8) is low despite getting 500mg G-tube BID dose, unclear if some lost in tubing. will increase dose of depakote to 1000mg g-tube BID, increase clozapine to 50mg g-tube am and 200mg qhs. 07/04, 07/05: no changes today, check VPA level this week 07/06 continue medications, will check depakote tomorrow AM. 07/07 d/c ativan, depakote level despite dose adjustment to 1000mg gtube BID continues to be low (33).change depakote to be given when he is not receiving feedings. 07/08 continue tx. 07/09 continue tx. 07/10 continue tx. 07/11: continue current management and treatment plan. 07/12: continue current management and treatment plan. 07/13 continue tx. will check depakote tomorrow AM. pending transfer to STR. 07/14 continue tx.depakote level continues to be low. pending transferred to LTC/STR. no aggression nor combative behaviors. 07/15 continue tx. 07/16 continue tx. 07/17 continue tx. pending coordination with ST to introduce oral intake for pleasure as something HCP would like to eventually see happening if no improvement in swallowing. DO NOT START ORAL INTAKE OVER THE WEEKEND- WAIT FOR ST ON SUNDAY. 07/18: irritable, demoralized. continue current mgmt. Reason for continued inpatient stay Substantial Risk for: inability to function Time Spent With Patient Time: Total time managing care of this patient today ____ minutes.
[2025-07-19 08:12] VITALS: BP 131/77; PULSE 105; RESP 18; TEMP 36.6; O2SAT 96
[2025-07-19] MEDS: Multivitamin with Minerals Liq 15 ML LIQUID G-TUBE (08:24)
[2025-07-19] MEDS: Lidocaine 4 % Patch ADH..PATCH 1 PATCH TRANSDERMA (08:25)
[2025-07-19] MEDS: Valproic Acid Liquid 250 MG/5 ML SOLUTION 1000 MG G-TUBE ×2 (10:17→16:15)
--- NOTE | 2025-07-19 14:39 | HO.PSYCHPN ---
Subjective Subjective Date of Service: 07/19/25 Reason For Visit: paranoid delusions Interim History: calm, cooperative. c/o sedation. per staff, in a better mood. cooperating with care. Mental Status Exam Mental Status Exam Narrative: Appearance: wearing casual clothing, fair hygiene, in NAD. Behavior: engaging, not unpleasant Psychomotor: no PMA/PMR Speech: clear, normal rate/rhythm/volume, spontaneous TP: organized TC: no delusions or paranoia expressed Mood: improved Affect: constricted SI: none expressed HI: none expressed VH/AH: none expressed Insight/judgment: impaired Memory/cog: oriented to person, time; oriented to place, month, situation. MOCA completed on 07/15/25: , ACL 3.2 Diagnostics Vital Signs (24Hr): Vital Signs - 24 hr 07/19/25 08:12 Temperature 97.9 F Pulse Rate 105 H Respiratory Rate 18 Blood Pressure 131/77 Pulse Oximetry 96 Oxygen Delivery Method Room Air BMI result Body Mass Index 22.6 Labs 07/17/25 13:46 07/17/25 13:46 Medications Medications Current Medications Acetaminophen (Acetaminophen 325 Mg Tablet) 975 mg G-TUBE TID [facility] Last Admin: 07/19/25 08:22 Dose: 975 mg Albuterol/Ipratropium (Albuterol/Iprat 2.5/0.5mg 3 Ml Ampul.Neb) 3 ml INHALE Q4H PRN PRN Reason: Shortness of Breath Albuterol/Ipratropium (Albuterol/Iprat 2.5/0.5mg 3 Ml Ampul.Neb) 3 ml INHALE RQ4H WHILE AWAKE PRN PRN Reason: sob Atorvastatin Calcium (Atorvastatin Calcium 40 Mg Tablet) 40 mg G-TUBE BEDTIME [facility] Last Admin: 07/18/25 22:06 Dose: Not Given Bisacodyl (Bisacodyl 10 Mg Supp.Rect) [address] DAILY PRN PRN Reason: Constipation Calcium Carbonate (Calcium Carbonate 750 Mg Tab.Chew) 750 mg G-TUBE TID PRN PRN Reason: Heartburn Capsaicin (Capsaicin 0.025% Cream 60 Gm Tube) 1 appl TOPICAL TID PRN; Protocol PRN Reason: Pain, Moderate(Pain Scale 4-6) Last Admin: 07/16/25 00:39 Dose: 1 appl Clozapine (Clozapine 25 Mg Tablet) 50 mg G-TUBE DAILY@1100 [facility] Last Admin: 07/19/25 10:16 Dose: 50 mg Clozapine (Clozapine 100 Mg Tablet) 200 mg G-TUBE DAILY@1700 [facility] Last Admin: 07/18/25 16:24 Dose: Not Given Doxazosin Mesylate (Doxazosin Mesylate 1 Mg Tablet) 1 mg PO BEDTIME [facility]; Protocol Last Admin: 07/18/25 22:06 Dose: Not Given Famotidine (Famotidine 20 Mg Tablet) 20 mg G-TUBE BID [facility] Last Admin: 07/19/25 08:23 Dose: 20 mg Gabapentin (Gabapentin 300 Mg Capsule) 300 mg G-TUBE BEDTIME [facility] Last Admin: 07/18/25 22:06 Dose: Not Given Gabapentin (Gabapentin 100 Mg Capsule) 100 mg G-TUBE DAILY [facility] Last Admin: 07/19/25 08:23 Dose: 100 mg Guaifenesin (Guaifenesin 200 Mg/10 Ml 10 Ml Liquid) 10 ml G-TUBE Q4H PRN PRN Reason: Cough Haloperidol (Haloperidol 1 Mg Tablet) 2 mg G-TUBE BID PRN PRN Reason: Agitation Haloperidol (Haloperidol 1 Mg Tablet) 1 mg G-TUBE DAILY [facility] Last Admin: 07/19/25 08:23 Dose: 1 mg Haloperidol (Haloperidol 1 Mg Tablet) 3 mg G-TUBE BEDTIME [facility] Last Admin: 07/18/25 22:07 Dose: Not Given Lidocaine (Lidocaine 4 % Patch Adh..Patch) 1 patch TRANSDERMA DAILY [facility]; Protocol Last Admin: 07/19/25 08:25 Dose: 1 patch Lisinopril (Lisinopril 2.5 Mg Tablet) 2.5 mg PO DAILY [facility]; Protocol Last Admin: 07/19/25 08:23 Dose: 2.5 mg Multivitamins/Minerals (Multivitamin With Minerals Liq 15 Ml Liquid) 15 ml G-TUBE DAILY [facility] Last Admin: 07/19/25 08:24 Dose: 15 ml Scopolamine (Scopolamine 1.5 Mg Patch.Td.3) 1.5 mg EAR-BEHIND Q72H [facility] Last Admin: 07/19/25 13:17 Dose: 1.5 mg Simethicone (Simethicone 80 Mg Tab.Chew) 80 mg G-TUBE Q6H PRN PRN Reason: Dyspepsia Tramadol HCl (Tramadol Hcl 50 Mg Tablet) 50 mg G-TUBE Q6H PRN PRN Reason: Pain, Severe (Pain Scale 7-10) Last Admin: 07/17/25 03:33 Dose: 50 mg Trazodone HCl (Trazodone Hcl 50 Mg Tablet) 150 mg G-TUBE BEDTIME [facility] Last Admin: 07/18/25 22:07 Dose: Not Given Valproic Acid (Valproic Acid Liquid 250 Mg/5 Ml Solution) 1,000 mg G-TUBE BID@1100,1700 [facility] Last Admin: 07/19/25 10:17 Dose: 1,000 mg Allergies Allergies Allergy/AdvReac Type Severity Reaction Status Date / Time No Known Allergies Allergy Verified 06/25/25 21:33 Assessment & Plan Assessment & Plan (1) Schizophrenia: Qualifiers: Schizophrenia type: unspecified Qualified Code(s): F20.9 - Schizophrenia, unspecified Status: Acute Code(s): F20.9 - Schizophrenia, unspecified Plan Mr. Raymundo is a 70 year-old male with hx of schizophrenia who initially was transferred from [facility] to [facility] after prolonged medical admission due to pt presenting with episodes of lethargy, complicated by covid, aspiration pneumonia and exacerbation of psychiatric condition including increase paranoid delusions towards his brother which then led to him feeling suicidal. He went to medical floor due to lethargy and apnea and difficulty managing excessive secretions. He was found to have severe sleep apnea. He was started on CPAP 5-20 cm auto mode. He is now back on sergio unit, presenting more paranoid than first time, accusatory and mistrustful of staff and this designer writer. He also presents with grandiose delusions of wanting to be president and erotomanic delusions of marrying a famous poet he does not know but some how is certain she wants to be with him too. Speech therapy continues to recommend G-tube due to severe risk of aspiration. Pt demands that g-tube be removed but after further assessment of his understanding of current medical condition and consequences of not having it but does not seem to understand that life expectancy would significantly shorten given complications of aspiration, leading to pneumonia, respiratory failure, sepsis and . Suspect clozapine contributing to dysphagia. 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 Concern in terms of increasing clozapine and worsening dysphagia along with other side effects including drooling, constipation. He is on low dose haldol although he has parkinsonism- we could add second antipsychotic that is lower potency. Will call brother to discuss options as pt does not seem to fully understand medical conditions, show appreciation of risk versus benefit despite being able to verbalize a preference/choice. PLAN 07/02 noted very low level of depakote despite medication being given and dose should reflect higher level. Will check depakote level again tomorrow and adjust dose. concern also for clozapine level also going down if some is being lost in tubing, or however is being metabolized. invoke HCP. per brother it appears HCP was affirmed by the court- we don't have copy of this. 07/03 Depakote level (22.8) is low despite getting 500mg G-tube BID dose, unclear if some lost in tubing. will increase dose of depakote to 1000mg g-tube BID, increase clozapine to 50mg g-tube am and 200mg qhs. 07/04, 07/05: no changes today, check VPA level this week 07/06 continue medications, will check depakote tomorrow AM. 07/07 d/c ativan, depakote level despite dose adjustment to 1000mg gtube BID continues to be low (33).change depakote to be given when he is not receiving feedings. 07/08 continue tx. 07/09 continue tx. 07/10 continue tx. 07/11: continue current management and treatment plan. 07/12: continue current management and treatment plan. 07/13 continue tx. will check depakote tomorrow AM. pending transfer to STR. 07/14 continue tx.depakote level continues to be low. pending transferred to LTC/STR. no aggression nor combative behaviors. 07/15 continue tx. 07/16 continue tx. 07/17 continue tx. pending coordination with ST to introduce oral intake for pleasure as something HCP would like to eventually see happening if no improvement in swallowing. DO NOT START ORAL INTAKE OVER THE WEEKEND- WAIT FOR ST ON SUNDAY. 07/18: irritable, demoralized. continue current mgmt. 07/19: notably better mood today, cooperative with RN care. continue current mgmt for now. c/o sedation for the past couple of days; attending to review medications and trend sedation complaint. Reason for continued inpatient stay Substantial Risk for: inability to function and rapid decompensation Time Spent With Patient Time: Total time managing care of this patient today ____ minutes.
[2025-07-19 20:00] VITALS: BP 123/65; PULSE 95; RESP 18; TEMP 36.7; O2SAT 96
[2025-07-20 08:00] VITALS: BP 116/69; PULSE 98; RESP 18; TEMP 36.3; O2SAT 98
[2025-07-20] MEDS: Multivitamin with Minerals Liq 15 ML LIQUID G-TUBE (08:45)
[2025-07-20 08:46] VITALS: BP 116/69
[2025-07-20] MEDS: Lidocaine 4 % Patch ADH..PATCH 1 PATCH TRANSDERMA (08:47)
[2025-07-20] MEDS: Valproic Acid Liquid 250 MG/5 ML SOLUTION 1000 MG G-TUBE ×2 (11:11→16:43)
--- NOTE | 2025-07-20 13:44 | HO.PSYCHPN ---
Subjective Subjective Date of Service: 07/20/25 Reason For Visit: paranoid delusions Subjective Notes: Conditional Voluntary Healthcare Proxy: Yes Interim History: Pt sleeping through the night. He denies SI/HI. No overt delusional content nor overt psychosis. He met with ST- trial of some oral food. MBST scheduled for this Sunday. Review of Systems Review of Systems Pt denies abdominal pain. No SOB. Noted drooling. No chest pain. NO SOB. No difficulty breathing. Yes all other systems are reviewed and are negative Mental Status Exam Mental Status Exam Narrative: Appearance: wearing casual clothing, fair hygiene, in NAD. Behavior: engaging, not unpleasant Psychomotor: no PMA/PMR Speech: clear, normal rate/rhythm/volume, spontaneous TP: organized TC: no delusions or paranoia expressed Mood: improved Affect: constricted SI: none expressed HI: none expressed VH/AH: none expressed Insight/judgment: impaired Memory/cog: oriented to person, time; oriented to place, month, situation. MOCA completed on 07/15/25: , ACL 3.2 Diagnostics Vital Signs (24Hr): Vital Signs - 24 hr 07/19/25 20:00 07/20/25 08:00 07/20/25 08:46 Temperature 98.1 F 97.3 F Pulse Rate 95 98 Respiratory Rate 18 18 Blood Pressure 123/65 116/69 116/69 Pulse Oximetry 96 98 Oxygen Delivery Method Room Air Room Air BMI result Body Mass Index 22.6 Labs 07/17/25 13:46 07/17/25 13:46 Medications Medications Current Medications Acetaminophen (Acetaminophen 325 Mg Tablet) 975 mg G-TUBE TID [facility] Last Admin: 07/20/25 08:46 Dose: 975 mg Albuterol/Ipratropium (Albuterol/Iprat 2.5/0.5mg 3 Ml Ampul.Neb) 3 ml INHALE Q4H PRN PRN Reason: Shortness of Breath Albuterol/Ipratropium (Albuterol/Iprat 2.5/0.5mg 3 Ml Ampul.Neb) 3 ml INHALE RQ4H WHILE AWAKE PRN PRN Reason: sob Atorvastatin Calcium (Atorvastatin Calcium 40 Mg Tablet) 40 mg G-TUBE BEDTIME [facility] Last Admin: 07/19/25 21:13 Dose: 40 mg Bisacodyl (Bisacodyl 10 Mg Supp.Rect) 10 mg ND DAILY PRN PRN Reason: Constipation Calcium Carbonate (Calcium Carbonate 750 Mg Tab.Chew) 750 mg G-TUBE TID PRN PRN Reason: Heartburn Capsaicin (Capsaicin 0.025% Cream 60 Gm Tube) 1 appl TOPICAL TID PRN; Protocol PRN Reason: Pain, Moderate(Pain Scale 4-6) Last Admin: 07/16/25 00:39 Dose: 1 appl Clozapine (Clozapine 25 Mg Tablet) 50 mg G-TUBE DAILY@1100 [facility] Last Admin: 07/20/25 11:12 Dose: 50 mg Clozapine (Clozapine 100 Mg Tablet) 200 mg G-TUBE DAILY@1700 [facility] Last Admin: 07/19/25 16:16 Dose: 200 mg Doxazosin Mesylate (Doxazosin Mesylate 1 Mg Tablet) 1 mg PO BEDTIME [facility]; Protocol Last Admin: 07/19/25 21:12 Dose: 1 mg Famotidine (Famotidine 20 Mg Tablet) 20 mg G-TUBE BID [facility] Last Admin: 07/20/25 08:46 Dose: 20 mg Gabapentin (Gabapentin 300 Mg Capsule) 300 mg G-TUBE BEDTIME [facility] Last Admin: 07/19/25 21:12 Dose: 300 mg Gabapentin (Gabapentin 100 Mg Capsule) 100 mg G-TUBE DAILY [facility] Last Admin: 07/20/25 08:46 Dose: 100 mg Guaifenesin (Guaifenesin 200 Mg/10 Ml 10 Ml Liquid) 10 ml G-TUBE Q4H PRN PRN Reason: Cough Haloperidol (Haloperidol 1 Mg Tablet) 2 mg G-TUBE BID PRN PRN Reason: Agitation Haloperidol (Haloperidol 1 Mg Tablet) 1 mg G-TUBE DAILY [facility] Last Admin: 07/20/25 08:46 Dose: 1 mg Haloperidol (Haloperidol 1 Mg Tablet) 3 mg G-TUBE BEDTIME [facility] Last Admin: 07/19/25 21:12 Dose: 3 mg Lidocaine (Lidocaine 4 % Patch Adh..Patch) 1 patch TRANSDERMA DAILY [facility]; Protocol Last Admin: 07/20/25 08:47 Dose: 1 patch Lisinopril (Lisinopril 2.5 Mg Tablet) 2.5 mg PO DAILY [facility]; Protocol Last Admin: 07/20/25 08:46 Dose: 2.5 mg Multivitamins/Minerals (Multivitamin With Minerals Liq 15 Ml Liquid) 15 ml G-TUBE DAILY [facility] Last Admin: 07/20/25 08:45 Dose: 15 ml Scopolamine (Scopolamine 1.5 Mg Patch.Td.3) 1.5 mg EAR-BEHIND Q72H [facility] Last Admin: 07/19/25 13:17 Dose: 1.5 mg Simethicone (Simethicone 80 Mg Tab.Chew) 80 mg G-TUBE Q6H PRN PRN Reason: Dyspepsia Tramadol HCl (Tramadol Hcl 50 Mg Tablet) 50 mg G-TUBE Q6H PRN PRN Reason: Pain, Severe (Pain Scale 7-10) Last Admin: 07/19/25 21:12 Dose: 50 mg Trazodone HCl (Trazodone Hcl 50 Mg Tablet) 150 mg G-TUBE BEDTIME [facility] Last Admin: 07/19/25 21:08 Dose: 150 mg Valproic Acid (Valproic Acid Liquid 250 Mg/5 Ml Solution) 1,000 mg G-TUBE BID@1100,1700 [facility] Last Admin: 07/20/25 11:11 Dose: 1,000 mg Allergies Allergies Allergy/AdvReac Type Severity Reaction Status Date / Time No Known Allergies Allergy Verified 06/25/25 21:33 Assessment & Plan Assessment & Plan (1) Schizophrenia: Qualifiers: Schizophrenia type: unspecified Qualified Code(s): F20.9 - Schizophrenia, unspecified Status: Acute Code(s): F20.9 - Schizophrenia, unspecified (2) Vascular dementia of acute onset without behavioral disturbance: Status: Acute Code(s): F01.50 - Vascular dementia, unspecified severity, without behavioral disturbance, psychotic disturbance, mood disturbance, and anxiety Plan Mr. Raymundo is a 70 year-old male with hx of schizophrenia who initially was transferred from [facility] to [facility] after prolonged medical admission due to pt presenting with episodes of lethargy, complicated by covid, aspiration pneumonia and exacerbation of psychiatric condition including increase paranoid delusions towards his brother which then led to him feeling suicidal. He went to medical floor due to lethargy and apnea and difficulty managing excessive secretions. He was found to have severe sleep apnea. He was started on CPAP 5-20 cm auto mode. He is now back on sergio unit, presenting more paranoid than first time, accusatory and mistrustful of staff and this specifications writer. He also presents with grandiose delusions of wanting to be president and erotomanic delusions of marrying a famous poet he does not know but some how is certain she wants to be with him too. Speech therapy continues to recommend G-tube due to severe risk of aspiration. Pt demands that g-tube be removed but after further assessment of his understanding of current medical condition and consequences of not having it but does not seem to understand that life expectancy would significantly shorten given complications of aspiration, leading to pneumonia, respiratory failure, sepsis and . Suspect clozapine contributing to dysphagia. 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 Concern in terms of increasing clozapine and worsening dysphagia along with other side effects including drooling, constipation. He is on low dose haldol although he has parkinsonism- we could add second antipsychotic that is lower potency. Will call brother to discuss options as pt does not seem to fully understand medical conditions, show appreciation of risk versus benefit despite being able to verbalize a preference/choice. PLAN 07/02 noted very low level of depakote despite medication being given and dose should reflect higher level. Will check depakote level again tomorrow and adjust dose. concern also for clozapine level also going down if some is being lost in tubing, or however is being metabolized. invoke HCP. per brother it appears HCP was affirmed by the court- we don't have copy of this. 07/03 Depakote level (22.8) is low despite getting 500mg G-tube BID dose, unclear if some lost in tubing. will increase dose of depakote to 1000mg g-tube BID, increase clozapine to 50mg g-tube am and 200mg qhs. 07/04, 07/05: no changes today, check VPA level this week 07/06 continue medications, will check depakote tomorrow AM. 07/07 d/c ativan, depakote level despite dose adjustment to 1000mg gtube BID continues to be low (33).change depakote to be given when he is not receiving feedings. 07/08 continue tx. 07/09 continue tx. 07/10 continue tx. 07/11: continue current management and treatment plan. 07/12: continue current management and treatment plan. 07/13 continue tx. will check depakote tomorrow AM. pending transfer to [facility] 07/14 continue tx.depakote level continues to be low. pending transferred to LTC/STR. no aggression nor combative behaviors. 07/15 continue tx. 07/16 continue tx. 07/17 continue tx. pending coordination with ST to introduce oral intake for pleasure as something HCP would like to eventually see happening if no improvement in swallowing. DO NOT START ORAL INTAKE OVER THE WEEKEND- WAIT FOR ST ON SUNDAY. 07/18: irritable, demoralized. continue current mgmt. 07/19: notably better mood today, cooperative with RN care. continue current mgmt for now. c/o sedation for the past couple of days; attending to review medications and trend sedation complaint. 07/20 had some PO food with assistance from ST. no overt psychosis or delusional content. taking meds. awaiting LTC. Added dx of vascular dementia as additional testing showed declined in ability to function in terms of executive function, recall. intact orientation. ACL 3.2 suggest more severe functional cognition. Reason for continued inpatient stay Substantial Risk for: inability to function Time Spent With Patient Time: Total time managing care of this patient today ____ minutes.
--- NOTE | 2025-07-20 14:09 | MHC.CLN ---
F/U CONTINUES NPO. TOLERATING TUBE FEEDING AT MAX GOAL RATE WITH NO NOTED CONCERNS. WEIGHT ON 07/16=73.5 KG. WEIGHT OVERALL STABLE. LABS REVIEWED. CONTINUE CURRENT TF ORDER.
--- NOTE | 2025-07-20 16:58 | MHC.SLORD ---
Speech Language Pathology Order Status: MBSS is scheduled tentatively for 07/23 at 2:30pm.
--- NOTE | 2025-07-20 18:09 | MHC.SL.SWA ---
Speech Pathologist Impression: Dysphagia secondary to PD, last visualization in May 2025 revealed moderate to significant pharyngeal pathology Risk of Aspiration Due to: Severity of dysphagia Hx of aspiraiton PNA Poor understanding of severity of dysphagia and risk for apsiraiton PNA Dysphasia Diet Status: Liquid Consistency and Strategies for Safe Swallow: Liquid Intake Recommendation: NPO Liquid Intake Strategies: Solid Food Consistency: Dietary Recommendations: NPO Additional Modifications to Solid Foods: Oral Medication Intake: NPO Please contact the pharmacy regarding appropriate crushable or liquid drug formulations that are available whenever modified delivery is recommended. Compensatory Strategies and Precautions to be Taken for Safe Swallow: Supervision While Eating and Drinking for Safe Swallow: PO with MORTGAGE FUNDER Foods to Avoid: Swallowing Recommended Treatments: Recommendation for Speech: Inpatient Speech Therapy Speech Therapy through Rehab Facility Modified Barium Swallow Study - Inpatient Comment: 07/20: Pt seen for dysphagia tx as per kendra clinician request to begin comfort feedings, which was recommended by evaluating MORTGAGE FUNDER at [facility] in May 2025. Treating MORTGAGE FUNDER 07/17 indicated on work list 'MBSS wanted, not ordered until consult with evaluating MORTGAGE FUNDER' and plan for Sunday (07/20) initiation of comfort feeding with MORTGAGE FUNDER to assess/provide guidelines/safety measures. This MORTGAGE FUNDER assessed pt at bedside with clinical swallow protocol, trialing approximately 1oz of chocolate pudding by 1/2 tsp boluses, 5 ice chips and one 1/2 tsp of vanilla pudding while cueing pt and implementing strategies for sufficient pausing, periodic voicing and encouraging effortful swallow. Pt followed cues with excellent return. One throat clear occurred s/p ice chips upon second trial. No overt s/s of aspiration with trials. Pt in agreement, though disappointed, with limitation for PO trials to be only with MORTGAGE FUNDER. Pt anticipated he would be able to eat dinner. Pt to be re-assessed with repeat MBSS this week. shipyard helper consulted to ensure carryover of recommendations and trial outcomes. RN and MD notified of findings. Frequency/Duration: M-F Daily Date Range for Service Req: Timeline to reassess: Shank Faker Clinican/Clinical Fellow: No Supervisory Statement: I have reviewed and agree with the student/clinical fellow's documentation: N/A Speech Language Pathologist: Kalyani Weaver M.S., [facility]-MORTGAGE FUNDER
--- NOTE | 2025-07-20 19:01 | PC.NURSE ---
Seen by ST today, trial of po food. Pt in w/c throughout shift till 6PM, afebrile, no aspiration symptoms noted. Will continue to monitor.
[2025-07-20 20:00] VITALS: BP 110/69; PULSE 97; RESP 18; TEMP 36.5; O2SAT 97
[2025-07-21 08:00] VITALS: BP 129/96; PULSE 95; RESP 18; TEMP 36.9; O2SAT 95
[2025-07-21 08:30] VITALS: BP 129/96
[2025-07-21] MEDS: Multivitamin with Minerals Liq 15 ML LIQUID G-TUBE (08:30)
[2025-07-21] MEDS: Lidocaine 4 % Patch ADH..PATCH 1 PATCH TRANSDERMA (08:32)
[2025-07-21] MEDS: Valproic Acid Liquid 250 MG/5 ML SOLUTION 1000 MG G-TUBE ×2 (11:11→17:05)
--- NOTE | 2025-07-21 15:25 | MHC.SL.SWA ---
Speech Pathologist Impression: Risk of Aspiration Due to: Dysphasia Diet Status: Liquid Consistency and Strategies for Safe Swallow: Liquid Intake Recommendation: NPO Liquid Intake Strategies: Solid Food Consistency: Dietary Recommendations: NPO Additional Modifications to Solid Foods: Oral Medication Intake: NPO Please contact the pharmacy regarding appropriate crushable or liquid drug formulations that are available whenever modified delivery is recommended. Compensatory Strategies and Precautions to be Taken for Safe Swallow: Supervision While Eating and Drinking for Safe Swallow: PO with PLANT SCIENCES PROFESSOR Foods to Avoid: Swallowing Recommended Treatments: Recommendation for Speech: Inpatient Speech Therapy Speech Therapy through Rehab Facility Modified Barium Swallow Study - Inpatient Comment: Pt seen for dysphagia tx this p.m. in Geripsych unit. Per RN, after treatment yesterday by PLANT SCIENCES PROFESSOR with food trials, patient noted to have increasing respiratory sounds today/congestion. Per case conference this a.m. with director of public works and PLANT SCIENCES PROFESSOR solar installation crew supervisor, PLANT SCIENCES PROFESSOR will hold presenting any further food/solid trials until after MBSS assessment, scheduled for 2 p.m. this 07/23/25 due to concern for patient safety. Patient seen today for [employer] treatment only. Patient provided with swab, mouth wash, and with some hand over hand support, patient used swab to clean mouth, often biting and chewing on swab, however successfully cleaning oral area. Patient with c/o medication change making him more tremulous. Patient noted to be drooling throughout, T shirt is soaked in saliva from drool. Patient given 1/4 tsp of water by spoon. Patient contained droplet orally, propelled for swallow, then had prolonged delay before initiating swallow (approx. 10 seconds). Swallow once initiated palpated with good laryngeal transit. Patient given six trials of trace water by spoon, with repetition of this noted behavior (prolonged delay initiating swallow, swallow initiation presenting as effortful, volitional) Patient requested ice chips, was provided with 2-3 tsp of small/dissolved chips, with patient self administering, holding in mouth for a period, and swallowing. No clinical signs of aspiration during trials, no increased airway sound or noise. Patient advised that Swallow test was scheduled for 2 p.m. on , and that PLANT SCIENCES PROFESSOR will return for swallow tx tomorrow. Patient with mildly increased agitation at end, advised PLANT SCIENCES PROFESSOR if no report given on his medication concern, you will lose your license. Frequency/Duration: M-F Daily Date Range for Service Req: Timeline to reassess: Machine Pack Assembler Clinican/Clinical Fellow: No Supervisory Statement: I have reviewed and agree with the student/clinical fellow's documentation: N/A Speech Language Pathologist: Kymberly Lemons M.A., CCC-PLANT SCIENCES PROFESSOR
--- NOTE | 2025-07-21 15:39 | P.PNPSI_ITS ---
Subjective Subjective Date of Service: 07/21/25 Reason For Visit: paranoid delusions Subjective Notes: Conditional Voluntary Healthcare Proxy: Yes Interim History: Pt sleeping through the night. He denies SI/HI. No overt delusional content nor overt psychosis. He met again with ST- trial of some oral food. He did have increase cough and secretions. MBST scheduled for this Sunday. Review of Systems Review of Systems Pt denies abdominal pain. No SOB. Noted drooling. No chest pain. NO SOB. No difficulty breathing. Yes all other systems are reviewed and are negative Mental Status Exam Mental Status Exam Narrative: Appearance: wearing casual clothing, fair hygiene, in NAD. Behavior: engaging, not unpleasant Psychomotor: no PMA/PMR Speech: clear, normal rate/rhythm/volume, spontaneous TP: organized TC: no delusions or paranoia expressed Mood: improved Affect: constricted SI: none expressed HI: none expressed VH/AH: none expressed Insight/judgment: impaired Memory/cog: oriented to person, time; oriented to place, month, situation. MOCA completed on 07/15/25: , ACL 3.2 Diagnostics Vital Signs (24Hr): Vital Signs - 24 hr 07/20/25 20:00 07/21/25 08:00 07/21/25 08:30 Temperature 97.7 F 98.4 F Pulse Rate 97 95 Respiratory Rate 18 18 Blood Pressure 110/69 129/96 H 129/96 H Pulse Oximetry 97 95 Oxygen Delivery Method Room Air Room Air BMI result Body Mass Index 22.6 Labs 07/17/25 13:46 07/17/25 13:46 Medications Medications Current Medications Acetaminophen (Acetaminophen 325 Mg Tablet) 975 mg G-TUBE TID COUNT INCLUDES [facility] Last Admin: 07/21/25 14:54 Dose: 975 mg Albuterol/Ipratropium (Albuterol/Iprat 2.5/0.5mg 3 Ml Ampul.Neb) 3 ml INHALE Q4H PRN PRN Reason: Shortness of Breath Albuterol/Ipratropium (Albuterol/Iprat 2.5/0.5mg 3 Ml Ampul.Neb) 3 ml INHALE RQ4H WHILE AWAKE PRN PRN Reason: sob Atorvastatin Calcium (Atorvastatin Calcium 40 Mg Tablet) 40 mg G-TUBE BEDTIME COUNT INCLUDES [facility] Last Admin: 07/20/25 21:53 Dose: 40 mg Bisacodyl (Bisacodyl 10 Mg Supp.Rect) 10 mg [place] DAILY PRN PRN Reason: Constipation Calcium Carbonate (Calcium Carbonate 750 Mg Tab.Chew) 750 mg G-TUBE TID PRN PRN Reason: Heartburn Capsaicin (Capsaicin 0.025% Cream 60 Gm Tube) 1 appl TOPICAL TID PRN; Protocol PRN Reason: Pain, Moderate(Pain Scale 4-6) Last Admin: 07/16/25 00:39 Dose: 1 appl Clozapine (Clozapine 25 Mg Tablet) 50 mg G-TUBE DAILY@1100 [facility]CLUDES [facility] Last Admin: 07/21/25 11:11 Dose: 50 mg Clozapine (Clozapine 100 Mg Tablet) 200 mg G-TUBE DAILY@1700 COUNT [facility]CLUDES [facility] Last Admin: 07/20/25 16:43 Dose: 200 mg Doxazosin Mesylate (Doxazosin Mesylate 1 Mg Tablet) 1 mg PO BEDTIME CLAUDIA; Protocol Last Admin: 07/20/25 21:52 Dose: 1 mg Famotidine (Famotidine 20 Mg Tablet) 20 mg G-TUBE BID COUNT INCLUDES [facility] Last Admin: 07/21/25 08:30 Dose: 20 mg Gabapentin (Gabapentin 300 Mg Capsule) 300 mg G-TUBE BEDTIME CLAUDIA Last Admin: 07/20/25 21:52 Dose: 300 mg Gabapentin (Gabapentin 100 Mg Capsule) 100 mg G-TUBE DAILY COUNT [facility]CLUDES [facility] Last Admin: 07/21/25 08:30 Dose: 100 mg Guaifenesin (Guaifenesin 200 Mg/10 Ml 10 Ml Liquid) 10 ml G-TUBE Q4H PRN PRN Reason: Cough Haloperidol (Haloperidol 1 Mg Tablet) 2 mg G-TUBE BID PRN PRN Reason: Agitation Haloperidol (Haloperidol 1 Mg Tablet) 1 mg G-TUBE DAILY COUNT [facility]CLUDES [facility] Last Admin: 07/21/25 08:30 Dose: 1 mg Haloperidol (Haloperidol 1 Mg Tablet) 3 mg G-TUBE BEDTIME COUNT INCLUDES [facility] Last Admin: 07/20/25 21:52 Dose: 3 mg Lidocaine (Lidocaine 4 % Patch Adh..Patch) 1 patch TRANSDERMA DAILY COUNT INCLUDES THE [facility]; Protocol Last Admin: 07/21/25 08:32 Dose: 1 patch Lisinopril (Lisinopril 2.5 Mg Tablet) 2.5 mg PO DAILY CLAUDIA; Protocol Last Admin: 07/21/25 08:30 Dose: 2.5 mg Multivitamins/Minerals (Multivitamin With Minerals Liq 15 Ml Liquid) 15 ml G- TUBE DAILY COUNT [facility]CLUDES [facility] Last Admin: 07/21/25 08:30 Dose: 15 ml Scopolamine (Scopolamine 1.5 Mg Patch.Td.3) 1.5 mg EAR-BEHIND Q72H COUNT INCLUDES THE [facility] Last Admin: 07/19/25 13:17 Dose: 1.5 mg Simethicone (Simethicone 80 Mg Tab.Chew) 80 mg G-TUBE Q6H PRN PRN Reason: Dyspepsia Trazodone HCl (Trazodone Hcl 50 Mg Tablet) 150 mg G-TUBE BEDTIME COUNT INCLUDES [facility] Last Admin: 07/20/25 21:52 Dose: 150 mg Valproic Acid (Valproic Acid Liquid 250 Mg/5 Ml Solution) 1,000 mg G-TUBE BID@1100,1700 COUNT [facility]CLUDES [facility] Last Admin: 07/21/25 11:11 Dose: 1,000 mg Allergies Allergies Allergy/AdvReac Type Severity Reaction Status Date / Time No Known Allergies Allergy Verified 06/25/25 21:33 Assessment & Plan Assessment & Plan (1) Schizophrenia: Qualifiers: Schizophrenia type: unspecified Qualified Code(s): F20.9 - Schizophrenia, unspecified Status: Acute Code(s): F20.9 - Schizophrenia, unspecified (2) Vascular dementia of acute onset without behavioral disturbance: Status: Acute Code(s): F01.50 - Vascular dementia, unspecified severity, without behavioral disturbance, psychotic disturbance, mood disturbance, and anxiety Plan Mr. Raymundo is a 70 year-old male with hx of schizophrenia who initially was transferred from [facility] to [facility] after prolonged medical admission due to pt presenting with episodes of lethargy, complicated by covid, aspiration pneumonia and exacerbation of psychiatric condition including increase paranoid delusions towards his brother which then led to him feeling suicidal. He went to medical floor due to lethargy and apnea and difficulty managing excessive secretions. He was found to have severe sleep apnea. He was started on CPAP 5- 20 cm auto mode. He is now back on sergio unit, presenting more paranoid than first time, accusatory and mistrustful of staff and this bid writer. He also presents with grandiose delusions of wanting to be president and erotomanic delusions of marrying a famous poet he does not know but some how is certain she wants to be with him too. Speech therapy continues to recommend G-tube due to severe risk of aspiration. Pt demands that g-tube be removed but after further assessment of his understanding of current medical condition and consequences of not having it but does not seem to understand that life expectancy would significantly shorten given complications of aspiration, leading to pneumonia, respiratory failure, sepsis and . Suspect clozapine contributing to dysphagia. 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 Concern in terms of increasing clozapine and worsening dysphagia along with other side effects including drooling, constipation. He is on low dose haldol although he has parkinsonism- we could add second antipsychotic that is lower potency. Will call brother to discuss options as pt does not seem to fully understand medical conditions, show appreciation of risk versus benefit despite being able to verbalize a preference/choice. PLAN 07/02 noted very low level of depakote despite medication being given and dose should reflect higher level. Will check depakote level again tomorrow and adjust dose. concern also for clozapine level also going down if some is being lost in tubing, or however is being metabolized. invoke HCP. per brother it appears HCP was affirmed by the court- we don't have copy of this. 07/03 Depakote level (22.8) is low despite getting 500mg G-tube BID dose, unclear if some lost in tubing. will increase dose of depakote to 1000mg g-tube BID, increase clozapine to 50mg g-tube am and 200mg qhs. 07/04, 07/05: no changes today, check VPA level this week 07/06 continue medications, will check depakote tomorrow AM. 07/07 d/c ativan, depakote level despite dose adjustment to 1000mg gtube BID continues to be low (33).change depakote to be given when he is not receiving feedings. 07/08 continue tx. 07/09 continue tx. 07/10 continue tx. 07/11: continue current management and treatment plan. 07/12: continue current management and treatment plan. 07/13 continue tx. will check depakote tomorrow AM. pending transfer to STR. 07/14 continue tx.depakote level continues to be low. pending transferred to LTC/STR. no aggression nor combative behaviors. 07/15 continue tx. 07/16 continue tx. 07/17 continue tx. pending coordination with ST to introduce oral intake for pleasure as something HCP would like to eventually see happening if no improvement in swallowing. DO NOT START ORAL INTAKE OVER THE WEEKEND- WAIT FOR ST ON SUNDAY. 07/18: irritable, demoralized. continue current mgmt. 07/19: notably better mood today, cooperative with RN care. continue current mgmt for now. c/o sedation for the past couple of days; attending to review medications and trend sedation complaint. 07/20 had some PO food with assistance from ST. no overt psychosis or delusional content. taking meds. awaiting LTC. Added dx of vascular dementia as additional testing showed declined in ability to function in terms of executive function, recall. intact orientation. ACL 3.2 suggest more severe functional cognition. 07/21 continue tx. awaiting placement. some PO- monitor for aspiration pneumonia. Reason for continued inpatient stay Substantial Risk for: inability to function Time Spent With Patient Time: Total time managing care of this patient today ____ minutes.
--- NOTE | 2025-07-21 18:02 | MHC.SPEECHCO ---
Patient continues as NPO, receiving nutrition via PEG. PRESSURIZER was consulted 07/08, no PO trials given for swallow assessment d/t documented aspiration, instead, swallow exercises were trialed 07/08 & 07/13. Per Marialuisa Serrano 07/17, ?pending coordination with ST to introduce oral intake for pleasure as something HCP would like to eventually see happening if no improvement in swallowing.? Patient seen by PRESSURIZER for dysphagia treatment 07/20 & 07/21 per psychiatric provider?s request for initiation of comfort feeding. On 07/20, patient consumed small amount of PO (approximately 1oz pudding, 5 ice chips) with PRESSURIZER supervision and cuing, one instance of throat clearing observed on ice chips, patient following cues for strategies (pausing, effortful swallowing). This date 07/21, patient seen by another PRESSURIZER for oral care and FFW treatment only, no solid trials administered, with significant impairments noted in the pharyngeal phase. Patient also noted to be drooling throughout, per Marialuisa Serrano, could be side effect of clozapine. No overt s/s of aspiration noted on administration of ice chips. Per nursing staff, after treatment yesterday with food trials, patient was noted to have increasing respiratory sounds/congestion today. Patient was previously hospitalized at [facility] for delirium in the setting of psychiatric decompensation. His hospitalization was further complicated by COVID infection and aspiration PNA. Records from [facility] document chronic dysphagia and aspiration on imaging, with PRESSURIZER involved in care and recommending NPO status with nutrition by PEG after barium swallow 06/11. This PRESSURIZER previously requested records from [facility] with no c/b. Today PRESSURIZER called again and successfully reached speech department directly at [facility], requesting their records, which were promptly faxed to this Speech and Hearing Dept today. VFSS 06/11 at [facility] showed consistent penetration with intermittent aspiration on thin consistency (at times silent). Mild to moderate pharyngeal residue with solids, not cleared on cued swallow, improved on liquid wash but resulted in aspiration of mixed consistency. Patient was subsequently recommended continuation of NPO status with ice chips for comfort. PRESSURIZER at that point signed off, documenting that patient presented with long term care phlebotomist chronic dysphagia w/o acute exacerbation. Advised explore goals of care discussion with provider, HCP, and pt, to potentially allow liberalization for PO snacks (up to 3x snacks per day 4oz container ice cream/juice/pudding etc administered by RN) for pleasure and increased QOL. Advancement to PO for pleasure was left at the provider?s discretion. Patient was recommended in any case stringent oral hygiene and strict aspiration precautions, and was deemed to be at high risk of aspiration on all consistencies. EMR indicates patient was given PO intake such as ice cream and pudding for pleasure at previous hospital. Patient repeatedly asking to remove feeding tube, asking to eat, has hx of pulling PEG tube out at [facility] (replaced 05/12). Patient w/ limited insight to his condition, on 07/03 is documented to lack capacity. This PRESSURIZER called and discussed case w/ Marialuisa Dompetarberto this date after reviewing PRESSURIZER records. Marialuisa to order Chest CT d/t reported congestions/secretion production, patient will be monitored for any other symptoms/fever. Per Marialuisa, patient has affirmed HCP by the court, Delvin Raymundo, who is patient?s brother and decision maker. Marialuisa reports having conversation with HCP in regards to the potential complications of patient having any oral intake given patient is known to aspirate as a result of severe dysphagia, documented 07/17: ?ALso discussed with HCP- that it is the clinical opinion of ST that need for g-tube may be chcf with no expectation to improve. HCP does say that he would assume some risk involve with oral intake for pleasure- we discussed again risk of aspiration, complications including aspiration pneumonia, sepsis and .? Per Marialuisa, patient is Full Code. Marialuisa indicated this date that she will discuss code status with patient?s HCP. Per case conference this a.m. with director behavioral health and PRESSURIZER direct care supervisor, PRESSURIZER will hold presenting any further food/solid trials until patient can be assessed w/ instrumental swallow study. CONTINUE NPO STRICT status. PRESSURIZER to visit patient tomorrow for continued patient/RN/caregiver education. MBSS is scheduled for 2:30 07/23.
[2025-07-21 20:00] VITALS: BP 123/67; PULSE 93; RESP 18; TEMP 36.4; O2SAT 93
--- NOTE | 2025-07-22 | ECG_ITS ---
Test Reason : tachycardia Blood Pressure : */* mmHG Vent. Rate : 148 BPM Atrial Rate : 148 BPM P-R Int : 134 ms QRS Dur : 78 ms QT Int : 260 ms P-R-T Axes : 56 -29 76 degrees QTcB Int : 408 ms Artifact in tracing Sinus tachycardia with Fusion complexes Due to artifact, cannot assess further When compared with ECG of 26-Jun-2025 13:48, due to artifact, cannot compare Referred By: Anna Chavira Electronically Signed By: DESI BETANCUR
[2025-07-22 08:00] VITALS: BP 153/71; PULSE 106; RESP 20; TEMP 37.2; O2SAT 84
[2025-07-22 08:21] LABS: Neut%MD 82.2 %; WBCANC 12.9 X10*3/uL
--- NOTE | 2025-07-22 08:39 | P.PNIM_ITS ---
Subjective Subjective Date of Service: 07/22/25 Interval History: Notified by nursing that a CT was ordered due to hypoxia patient noted to be 84% on room air placed on [address] Demonstratedmultifocal aspiration pneumonia. Patient requiring 2 L of oxygen due to decreased O2 sat per nursing. Labs pending. Patient was administered dose of ceftriaxone IM and metronidazole. Patient noted to be tachycardic on exam, EKG demonstrates sinus tachycardia. Troponin, BNP pending. On exam patient awake and alert, reports that he feels better now oxygen is on. No cough noted. No increased work of breathing. Denies any chest pain. Denies feeling short of breath. Physical Exam 2 Exam: Exam: CONST: Alert and oriented, in NAD. Appears chronically ill, weak and deconditioned. No apparent distress HEENT: Normocephalic, atraumatic, MMM, Eyes clear, Neck supple RESP: Lungs diminished bilaterally. RRR even and regular HEART:,RRR, S1, S2. No edema. GI:Abdomen Soft NT, ND. + BS times four :Deferred SKIN: Warm dry and intact, no visible lesions or rashes NEURO:CN II-XII Intact bilaterally, Sensation intact. Speech clear PSYCH: Normal affect Vital Signs: Vital Signs: Last Vital Signs Temp 97.5 F 07/21/25 20:00 Pulse 93 07/21/25 20:00 Resp 18 07/21/25 20:00 BP 123/67 07/21/25 20:00 Pulse Ox 93 07/21/25 20:00 O2 Del Method Room Air 07/21/25 20:00 BMI result Body Mass Index 22.6 Objective Data Active Medications Acetaminophen (Acetaminophen 325 Mg Tablet) 975 mg G-TUBE TID [facility] Last Admin: 07/21/25 22:14 Dose: 975 mg Documented By: EUGENIA Albuterol/Ipratropium (Albuterol/Iprat 2.5/0.5mg 3 Ml Ampul.Neb) 3 ml INHALE Q4H PRN PRN Reason: Shortness of Breath Albuterol/Ipratropium (Albuterol/Iprat 2.5/0.5mg 3 Ml Ampul.Neb) 3 ml INHALE RQ4H WHILE AWAKE PRN PRN Reason: sob Atorvastatin Calcium (Atorvastatin Calcium 40 Mg Tablet) 40 mg G-TUBE BEDTIME [facility] Last Admin: 07/21/25 20:50 Dose: 40 mg Documented By: EUGENIA Bisacodyl (Bisacodyl 10 Mg Supp.Rect) 10 mg [place] DAILY PRN PRN Reason: Constipation Calcium Carbonate (Calcium Carbonate 750 Mg Tab.Chew) 750 mg G-TUBE TID PRN PRN Reason: Heartburn Capsaicin (Capsaicin 0.025% Cream 60 Gm Tube) 1 appl TOPICAL TID PRN; Protocol PRN Reason: Pain, Moderate(Pain Scale 4-6) Last Admin: 07/16/25 00:39 Dose: 1 appl Documented By: HAM Clozapine (Clozapine 25 Mg Tablet) 50 mg G-TUBE DAILY@1100 CLAUDIA Last Admin: 07/21/25 11:11 Dose: 50 mg Documented By: PAU Clozapine (Clozapine 100 Mg Tablet) 200 mg G-TUBE DAILY@1700 [facility] Last Admin: 07/21/25 17:05 Dose: 200 mg Documented By: PAU Doxazosin Mesylate (Doxazosin Mesylate 1 Mg Tablet) 1 mg PO BEDTIME CLAUDIA; Protocol Last Admin: 07/21/25 20:46 Dose: 1 mg Documented By: EUGENIA Famotidine (Famotidine 20 Mg Tablet) 20 mg G-TUBE BID [facility] Last Admin: 07/21/25 20:47 Dose: 20 mg Documented By: EUGENIA Gabapentin (Gabapentin 300 Mg Capsule) 300 mg G-TUBE BEDTIME [facility] Last Admin: 07/21/25 22:15 Dose: 300 mg Documented By: EUGENIA Gabapentin (Gabapentin 100 Mg Capsule) 100 mg G-TUBE DAILY [facility] Last Admin: 07/21/25 08:30 Dose: 100 mg Documented By: PAU Guaifenesin (Guaifenesin 200 Mg/10 Ml 10 Ml Liquid) 10 ml G-TUBE Q4H PRN PRN Reason: Cough Haloperidol (Haloperidol 1 Mg Tablet) 2 mg G-TUBE BID PRN PRN Reason: Agitation Haloperidol (Haloperidol 1 Mg Tablet) 1 mg G-TUBE DAILY [facility] Last Admin: 07/21/25 08:30 Dose: 1 mg Documented By: PAU Haloperidol (Haloperidol 1 Mg Tablet) 3 mg G-TUBE BEDTIME [facility] Last Admin: 07/21/25 20:51 Dose: 3 mg Documented By: EUGENIA Lidocaine (Lidocaine 4 % Patch Adh..Patch) 1 patch TRANSDERMA DAILY [facility]; Protocol Last Admin: 07/21/25 08:32 Dose: 1 patch Documented By: PAU Lisinopril (Lisinopril 2.5 Mg Tablet) 2.5 mg PO DAILY [facility]; Protocol Last Admin: 07/21/25 08:30 Dose: 2.5 mg Documented By: PAU Multivitamins/Minerals (Multivitamin With Minerals Liq 15 Ml Liquid) 15 ml G- TUBE DAILY [facility] Last Admin: 07/21/25 08:30 Dose: 15 ml Documented By: PAU Scopolamine (Scopolamine 1.5 Mg Patch.Td.3) 1.5 mg EAR-BEHIND Q72H [facility] Last Admin: 07/19/25 13:17 Dose: 1.5 mg Documented By: [place] Simethicone (Simethicone 80 Mg Tab.Chew) 80 mg G-TUBE Q6H PRN PRN Reason: Dyspepsia Trazodone HCl (Trazodone Hcl 50 Mg Tablet) 150 mg G-TUBE BEDTIME [facility] Last Admin: 07/21/25 20:50 Dose: 150 mg Documented By: EUGENIA Valproic Acid (Valproic Acid Liquid 250 Mg/5 Ml Solution) 1,000 mg G-TUBE BID@1100,1700 [facility] Last Admin: 07/21/25 17:05 Dose: 1,000 mg Documented By: PAU Labs 07/22/25 10:27 07/22/25 11:22 Labs: Laboratory Results - last 24 hr 07/22/25 07:20 Absolute Neuts (auto) 10.6 H Assessment and Plan (1) Chronic pulmonary aspiration: Status: Acute Plan 70-year-old male admitted here after a prolonged 8 week hospitalization. Patient continued with suicidal ideation throughout the hospital stay therefore discharged here to inpatient [facility] for further treatment Schizoaffective disorder on clozapine. Recently readmitted to [facility] after medical stay where he was found to have severe sleep apnea. He was transferred back for continued treatment Aspiration pneumonia Chest CT ordered this morning by psychiatric team. Demonstrated multifocal aspiration pneumonia Given dose of ceftriaxone 1 g IM and Flagyl po Lactic acid, CBC, CMP ordered Oxygen to maintain sats greater than 90 Albuterol updrafts as needed Q 6 hours p.r.n. Tachycardia Noted to be tachycardic on exam, EKG ordered. Demonstrated sinus tach, troponin pending Schizoaffective disorder/depression Psychiatric team to follow Dysphagia and history of aspiration Patient with a tube feeding vital 1.5 at 85 mL/hour for 16 hours on as 18:00 off at 10:00. Free water flush 240 mg L every 4 hours Patient is at risk for aspiration. Out of bed for all meals, HOB elevated 30-45 degrees at all times. Patient did have repeat barium swallow in-hospital in May 2025 which demonstrated some improvement from previous, however he was still aspirating. Patient has a long history of dysphagia and swallowing studies and he is likely to be continued risk for aspiration and unlikely to be nutritional needs on a full p.o. diet. Patient was given p.o. intake for pleasure. He has been given ice cream and puddings in the hospital, he is aware of the risks of aspiration and is willing to accept that risk as he wants to eat soft foods. Psychiatry unsure whether patient fully understands the manifestations of risks of p.o. intake. Patient has invoked healthcare proxy Patient had one ounce of pudding and some ice chips on July 20 with speech therapy. Quality Stroke Does the patient have a stroke diagnosis?: No VTE Prior VTE?: No VTE Risk Level:: Medical - low VTE Device Contraindication: Treatment Not Indicated VTE Drug Contraindication: Treatment Not Indicated
--- NOTE | 2025-07-22 08:40 | P.PNPSI_ITS ---
Subjective Subjective Reason For Visit: paranoid delusions Interim History: Pt sleeping through the night. He denies SI/HI. No overt delusional content nor overt psychosis. He met again with ST- trial of some oral food. He did have increase cough and secretions. MBST scheduled for this Sunday. Review of Systems Review of Systems Pt denies abdominal pain. No SOB. Noted drooling. No chest pain. NO SOB. No difficulty breathing. Yes all other systems are reviewed and are negative Mental Status Exam Mental Status Exam Narrative: Appearance: wearing casual clothing, fair hygiene, in NAD. Behavior: engaging, not unpleasant Psychomotor: no PMA/PMR Speech: clear, normal rate/rhythm/volume, spontaneous TP: organized TC: no delusions or paranoia expressed Mood: improved Affect: constricted SI: none expressed HI: none expressed VH/AH: none expressed Insight/judgment: impaired Memory/cog: oriented to person, time; oriented to place, month, situation. MOCA completed on 07/15/25: , ACL 3.2 Diagnostics Vital Signs (24Hr): Vital Signs - 24 hr 07/21/25 20:00 Temperature 97.5 F Pulse Rate 93 Respiratory Rate 18 Blood Pressure 123/67 Pulse Oximetry 93 Oxygen Delivery Method Room Air BMI result Body Mass Index 22.6 Labs 07/17/25 13:46 07/17/25 13:46 Labs: Laboratory Results - last 48 hr 07/22/25 07:20 Absolute Neuts (auto) 10.6 H Medications Medications Current Medications Acetaminophen (Acetaminophen 325 Mg Tablet) 975 mg G-TUBE TID [facility] Last Admin: 07/21/25 22:14 Dose: 975 mg Albuterol/Ipratropium (Albuterol/Iprat 2.5/0.5mg 3 Ml Ampul.Neb) 3 ml INHALE Q4H PRN PRN Reason: Shortness of Breath Albuterol/Ipratropium (Albuterol/Iprat 2.5/0.5mg 3 Ml Ampul.Neb) 3 ml INHALE RQ4H WHILE AWAKE PRN PRN Reason: sob Atorvastatin Calcium (Atorvastatin Calcium 40 Mg Tablet) 40 mg G-TUBE BEDTIME [facility] Last Admin: 07/21/25 20:50 Dose: 40 mg Bisacodyl (Bisacodyl 10 Mg Supp.Rect) 10 mg OK DAILY PRN PRN Reason: Constipation Calcium Carbonate (Calcium Carbonate 750 Mg Tab.Chew) 750 mg G-TUBE TID PRN PRN Reason: Heartburn Capsaicin (Capsaicin 0.025% Cream 60 Gm Tube) 1 appl TOPICAL TID PRN; Protocol PRN Reason: Pain, Moderate(Pain Scale 4-6) Last Admin: 07/16/25 00:39 Dose: 1 appl Clozapine (Clozapine 25 Mg Tablet) 50 mg G-TUBE DAILY@1100 [facility] Last Admin: 07/21/25 11:11 Dose: 50 mg Clozapine (Clozapine 100 Mg Tablet) 200 mg G-TUBE DAILY@1700 [facility] Last Admin: 07/21/25 17:05 Dose: 200 mg Doxazosin Mesylate (Doxazosin Mesylate 1 Mg Tablet) 1 mg PO BEDTIME [facility]; Protocol Last Admin: 07/21/25 20:46 Dose: 1 mg Famotidine (Famotidine 20 Mg Tablet) 20 mg G-TUBE BID [facility] Last Admin: 07/21/25 20:47 Dose: 20 mg Gabapentin (Gabapentin 300 Mg Capsule) 300 mg G-TUBE BEDTIME [facility] Last Admin: 07/21/25 22:15 Dose: 300 mg Gabapentin (Gabapentin 100 Mg Capsule) 100 mg G-TUBE DAILY [facility] Last Admin: 07/21/25 08:30 Dose: 100 mg Guaifenesin (Guaifenesin 200 Mg/10 Ml 10 Ml Liquid) 10 ml G-TUBE Q4H PRN PRN Reason: Cough Haloperidol (Haloperidol 1 Mg Tablet) 2 mg G-TUBE BID PRN PRN Reason: Agitation Haloperidol (Haloperidol 1 Mg Tablet) 1 mg G-TUBE DAILY [facility] Last Admin: 07/21/25 08:30 Dose: 1 mg Haloperidol (Haloperidol 1 Mg Tablet) 3 mg G-TUBE BEDTIME [facility] Last Admin: 07/21/25 20:51 Dose: 3 mg Lidocaine (Lidocaine 4 % Patch Adh..Patch) 1 patch TRANSDERMA DAILY [facility]; Protocol Last Admin: 07/21/25 08:32 Dose: 1 patch Lisinopril (Lisinopril 2.5 Mg Tablet) 2.5 mg PO DAILY [facility]; Protocol Last Admin: 07/21/25 08:30 Dose: 2.5 mg Multivitamins/Minerals (Multivitamin With Minerals Liq 15 Ml Liquid) 15 ml G- TUBE DAILY [facility] Last Admin: 07/21/25 08:30 Dose: 15 ml Scopolamine (Scopolamine 1.5 Mg Patch.Td.3) 1.5 mg EAR-BEHIND Q72H [facility] Last Admin: 07/19/25 13:17 Dose: 1.5 mg Simethicone (Simethicone 80 Mg Tab.Chew) 80 mg G-TUBE Q6H PRN PRN Reason: Dyspepsia Trazodone HCl (Trazodone Hcl 50 Mg Tablet) 150 mg G-TUBE BEDTIME [facility] Last Admin: 07/21/25 20:50 Dose: 150 mg Valproic Acid (Valproic Acid Liquid 250 Mg/5 Ml Solution) 1,000 mg G-TUBE BID@1100,1700 [facility] Last Admin: 07/21/25 17:05 Dose: 1,000 mg Allergies Allergies Allergy/AdvReac Type Severity Reaction Status Date / Time No Known Allergies Allergy Verified 06/25/25 21:33 Assessment & Plan Assessment & Plan (1) Schizophrenia: Qualifiers: Schizophrenia type: unspecified Qualified Code(s): F20.9 - Schizophrenia, unspecified Status: Acute Code(s): F20.9 - Schizophrenia, unspecified (2) Vascular dementia of acute onset without behavioral disturbance: Status: Acute Code(s): F01.50 - Vascular dementia, unspecified severity, without behavioral disturbance, psychotic disturbance, mood disturbance, and anxiety Plan Mr. Raymundo is a 70 year-old male with hx of schizophrenia who initially was transferred from [facility] to [facility] after prolonged medical admission due to pt presenting with episodes of lethargy, complicated by covid, aspiration pneumonia and exacerbation of psychiatric condition including increase paranoid delusions towards his brother which then led to him feeling suicidal. He went to medical floor due to lethargy and apnea and difficulty managing excessive secretions. He was found to have severe sleep apnea. He was started on CPAP 5- 20 cm auto mode. He is now back on [facility] unit, presenting more paranoid than first time, accusatory and mistrustful of staff and this casualty underwriter. He also presents with grandiose delusions of wanting to be president and erotomanic delusions of marrying a famous poet he does not know but some how is certain she wants to be with him too. Speech therapy continues to recommend G-tube due to severe risk of aspiration. Pt demands that g-tube be removed but after further assessment of his understanding of current medical condition and consequences of not having it but does not seem to understand that life expectancy would significantly shorten given complications of aspiration, leading to pneumonia, respiratory failure, sepsis and . Suspect clozapine contributing to dysphagia. 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 Concern in terms of increasing clozapine and worsening dysphagia along with other side effects including drooling, constipation. He is on low dose haldol although he has parkinsonism- we could add second antipsychotic that is lower potency. Will call brother to discuss options as pt does not seem to fully understand medical conditions, show appreciation of risk versus benefit despite being able to verbalize a preference/choice. PLAN 07/02 noted very low level of depakote despite medication being given and dose should reflect higher level. Will check depakote level again tomorrow and adjust dose. concern also for clozapine level also going down if some is being lost in tubing, or however is being metabolized. invoke HCP. per brother it appears HCP was affirmed by the court- we don't have copy of this. 07/03 Depakote level (22.8) is low despite getting 500mg G-tube BID dose, unclear if some lost in tubing. will increase dose of depakote to 1000mg g-tube BID, increase clozapine to 50mg g-tube am and 200mg qhs. 07/04, 07/05: no changes today, check VPA level this week 07/06 continue medications, will check depakote tomorrow AM. 07/07 d/c ativan, depakote level despite dose adjustment to 1000mg gtube BID continues to be low (33).change depakote to be given when he is not receiving feedings. 07/08 continue tx. 07/09 continue tx. 07/10 continue tx. 07/11: continue current management and treatment plan. 07/12: continue current management and treatment plan. 07/13 continue tx. will check depakote tomorrow AM. pending transfer to STR. 07/14 continue tx.depakote level continues to be low. pending transferred to LTC/STR. no aggression nor combative behaviors. 07/15 continue tx. 07/16 continue tx. 07/17 continue tx. pending coordination with ST to introduce oral intake for pleasure as something HCP would like to eventually see happening if no improvement in swallowing. DO NOT START ORAL INTAKE OVER THE WEEKEND- WAIT FOR ST ON SUNDAY. 07/18: irritable, demoralized. continue current mgmt. 07/19: notably better mood today, cooperative with RN care. continue current mgmt for now. c/o sedation for the past couple of days; attending to review medications and trend sedation complaint. 07/20 had some PO food with assistance from ST. no overt psychosis or delusional content. taking meds. awaiting LTC. Added dx of vascular dementia as additional testing showed declined in ability to function in terms of executive function, recall. intact orientation. ACL 3.2 suggest more severe functional cognition. 07/21 continue tx. awaiting placement. some PO- monitor for aspiration pneumonia. Time Spent With Patient Time: Total time managing care of this patient today ____ minutes.
[2025-07-22 09:33] VITALS: TEMP 37.7
[2025-07-22] MEDS: Multivitamin with Minerals Liq 15 ML LIQUID G-TUBE (10:32)
[2025-07-22 10:45] LABS: Hematocrit 35.7 % (42.0-52.0); Hemoglobin 12.5 g/dl (14.0-18.0); Imm Gran Abs Auto 0.11 X10*3/uL (0.00-0.03); Imm Gran Pct Auto 1.0 % (0.0-0.4); Lymphocytes Absolute Auto 0.3 X10*3/uL (1.2-4.9); MANUAL DIFF FLAG SCAN; Mean Corpuscular HGB Conc 35.0 g/dl (31.0-36.0); Mean Corpuscular Hemoglobin 32.5 pg (27.0-33.0); Mean Corpuscular Volume 92.7 fL (80.0-98.0); NRBC Abs Auto 0.000 X10*3/uL (0.0-0.012); NRBC Pct Auto 0.0 /100WBC (0.0-0.2); Platelet Count 205 X10*3/uL (160-400); Red Blood Count 3.85 X10*6/uL (4.60-5.80); SCAN SMEAR FLAG 1; White Blood Count 11.2 X10*3/uL (4.8-10.8)
--- NOTE | 2025-07-22 10:57 | PM.PSYDC ---
DS: Providers Provider Date of Service: 07/22/25 Date of admission: 06/30/25 14:20 Date of discharge: 07/22/25 Primary care physician: Unknown Physician DS: Diagnosis Discharge Diagnosis (1) Schizophrenia: Status: Acute (2) Vascular dementia of acute onset without behavioral disturbance: Status: Acute DS: Medications Discharge Medications Home Medications: Previous Rx's ?Medication ?Instructions ?Recorded acetaminophen 325 mg tablet 975 mg (3 x 325 mg) G-tube TID #0 07/22/25 tabs atorvastatin 40 mg tablet 40 mg G-tube BEDTIME #0 tabs 07/22/25 bisacodyl 10 mg rectal suppository 10 mg [place] DAILY PRN Constipation #0 07/22/25 (Gentle Laxative (bisacodyl)) ea calcium carbonate (Antacid Ext Str 2.5 tab G-tube TID PRN Heartburn 07/22/25 (calcium carb)) #0 tabs capsaicin 0.025 % topical cream 1 appl topical TID PRN Pain, 07/22/25 Moderate(Pain Scale 4-6) #0 grams clozapine 100 mg tablet 200 mg (2 x 100 mg) G-tube 07/22/25 DAILY@1700 #0 tabs clozapine 25 mg tablet 50 mg (2 x 25 mg) G-tube 07/22/25 DAILY@1100 #0 tabs doxazosin 1 mg tablet 1 mg PO BEDTIME #0 tabs 07/22/25 famotidine 20 mg tablet 20 mg G-tube BID #0 tabs 07/22/25 gabapentin 100 mg capsule 100 mg G-tube DAILY #0 caps 07/22/25 gabapentin 300 mg capsule 300 mg G-tube BEDTIME #0 caps 07/22/25 haloperidol 1 mg tablet 1 mg G-tube DAILY #0 tabs 07/22/25 haloperidol 1 mg tablet 2 mg (2 x 1 mg) G-tube BID PRN 07/22/25 Agitation #0 tabs haloperidol 1 mg tablet 3 mg (3 x 1 mg) G-tube BEDTIME #0 07/22/25 tabs ipratropium 0.5 mg-albuterol 3 mg 3 ml inhalation Q6H PRN Shortness 07/22/25 (2.5 mg base)/3 mL nebulization Of Breath #0 mL soln lidocaine 4 % topical patch 1 patch transdermal DAILY #0 ea 07/22/25 (Lidocaine Pain Relief) lisinopril 2.5 mg tablet 2.5 mg PO DAILY #0 tabs 07/22/25 metronidazole 500 mg tablet 500 mg PO Q12H #0 tabs 07/22/25 scopolamine base 1 mg over 3 days 1.5 mg EAR-BEHIND Q72H #0 ea 07/22/25 transdermal patch (Transderm-Scop) simethicone 80 mg chewable tablet 80 mg G-tube Q6H PRN Dyspepsia #0 07/22/25 tabs trazodone 50 mg tablet 150 mg (3 x 50 mg) G-tube BEDTIME 07/22/25 #0 tabs valproic acid (as sodium salt) 250 1,000 mg (20 mL) G-tube 07/22/25 mg/5 mL (5 mL) oral solution BID@1100,1700 #0 mL Mental Status Exam Mental Status Exam Narrative: Appearance: wearing casual clothing, fair hygiene, in NAD. Behavior: engaging, not unpleasant Psychomotor: no PMA/PMR Speech: clear, normal rate/rhythm/volume, spontaneous TP: organized TC: no delusions or paranoia expressed Mood: improved Affect: constricted SI: none expressed HI: none expressed VH/AH: none expressed Insight/judgment: impaired Memory/cog: oriented to person, time; oriented to place, month, situation. MOCA completed on 07/15/25: 2230, ACL 3.2 Data Data Completed and Pending Completed studies during hospitalization [Text1]: 07/17/25 07/22/25 07/22/25 13:46 07:20 10:27 WBC 8.5 11.2 H RBC 3.85 L 3.85 L Hgb 12.1 L 12.5 L Hct 35.9 L 35.7 L MCV 93.2 92.7 MCH 31.4 32.5 MCHC 33.7 35.0 RDW 15.6 16.2 H Plt Count 257 D 205 MPV 9.9 10.5 Immature Gran % (Auto) 1.1 H Pending Neut % (Auto) 74.4 H Pending Lymph % (Auto) 15.0 L Pending [place] % (Auto) 9.3 Pending Eos % (Auto) 0.0 Pending Baso % (Auto) 0.2 Pending Lymph # (Auto) 1.3 Pending [place] # (Auto) 0.8 Pending Eos # (Auto) 0.0 Pending Baso # (Auto) 0.0 Pending Abs Immat Gran (auto) 0.09 H Pending Absolute Neuts (auto) 6.3 10.6 H Pending Absolute Nucleated RBC 0.000 Pending Nucleated RBC % (auto) 0.0 Pending Sodium 143 Potassium 4.5 Chloride 103 Carbon Dioxide 34 H Anion Gap 11 L BUN 28 H Creatinine 0.87 Estim Creat Clear Calc 84.3 Estimated GFR > 60 Random Glucose 90 Lactic Acid Pending Calcium 9.8 Magnesium 2.1 Total Bilirubin 0.2 AST 19 ALT 11 Alkaline Phosphatase 109 Total Protein 6.8 Albumin 3.8 07/22/25 10:27 Blood - Venous Blood Culture - Pending 07/22/25 10:27 Blood - Venous Blood Culture - Pending Imaging Diagnostic Imaging Impressions Chest CT 07/22/25 08:59 IMPRESSION: Multifocal aspiration pneumonia. Severe degenerative changes right glenohumeral joint. Superimposed inflammatory versus infectious process cannot be excluded. Fleischner guidelines were followed. Electronically signed by: Dave Reese MD 07/22/2025 09:33 AM EDT DS: Summary Hospital Course Hospital Course: Mr. Raymundo is a 70 year-old male with hx of schizophrenia stable for several years on clozaril who initially was admitted to [facility] in 03/2025 presented as lethargic and mute. He had covid/aspiration pneumonia. He had episodes of unresponsiveness negative for stroke/AK/seizure. He was seen by psychiatry. Apparently, his dose of clozapine was lowered earlier this year after back surgery which led to gradual increase in paranoid delusions. While he was inpatient, it was noted that he was a high risk for aspiration and g-tube was inserted. He was still allowed to have some po for pleasure but with understanding that some degree of food is being aspirated. Pt was admitted to on 06/26 for treatment of paranoid delusions towards brother and suicidal ideation. He was transferred to medical floor due to lethargy, episodes of apnea and difficulty managing excessive secretions. Pt had a sleep study and found to have severe sleep apnea with AHI of 32/hr, franklyn SaO2 of 78%. He was started on CPAP 5-20 cm auto mode. On the unit, pt presents as more paranoid and suspicious towards staff and this telegraphic typewriter repairer. He reports he believes this telegraphic typewriter repairer is orchestrating plan to steal his writings because I want him to be dependent on staff. He also reports he wants to famous poet and be next president of the unit states. He asks that g-tube be removed because he reports I've been practicing swallowing and is confident he is able to swallow with minimal issues. He also said if I have to live with a g-tube I'd rather be . When discussing and assessing his understanding of consequences of removing the g-tube, he seems to think that he would have years of quality life. When this telegraphic typewriter repairer explained that complications of aspiration would include pneumonia, respiratory failure, sepsis and , pt states he has many plans in his life. He reports in terms of suicidal ideation, he does not feel like hurting himself and feels less depressed. He also reports he thinks his brother has been better. He reports he does not know who he can trust here but is open to work with the team. Past Psychiatric History: Inpatient: he had admission more than 30 years ago, then a year ago for suicidal ideation. OP: sees a psychologist for more than 20 years, Dr. José Miguel Jefferson. Past medication trials: mostly he has been stable on clozapine, recently added haldol while inpatient, lithium, depakote. Medical Evaluation Reviewed: Yes HOSPITAL COURSE On the unit, pt initially presented with grandiose delusions of wanting to be president along with paranoid delusions thinking brother and staff on the unit were trying to harm him. He allowed medications via g-tube. He has an AFFIRMED HCP. He gradually presented with less delusions and no signs of psychosis. We did complete memory/cognitive assessment MOCA which showed impairments in executive function, recall with intact orientation and language. His functional cognition showed a more severe decline and impairment with a score 3.2. Physically he was total care in that he needed mara to get him out of bed and assistance to complete all ADLs. His dysphagia is severe with need of g-tube indefinitely. Multiple conversations were held with his affirmed HCP who ultimately decided and requested that despite risk of not only aspiration but complications including pneumonia, sepsis, and , that Carter was started on some oral intake for comfort as he was receiving at [facility]. He started with some oral intake on 07/20/25- he had per ST one onz of pudin and some ice chips. Today, he presented with oxygen desaturation in 80's, chest CT showed aspiration pneumonia. Elevated WBC (11), elevated lactic acidosis- 2.9, febrile. This telegraphic typewriter repairer spoke with HCP, Delvin ([phone]) informed him of pt being transferred to ICU. Delvin continues to confirm that pt is currently a full code. Psychiatrically, patient was already stable and ready for discharge. He was awaiting step down to SNF for LTC. Plan is to continue clozapine 50mg daily and 200mg qhs. He was also continued on depakote which level continue to present as low despite dose adjustments and changes in timing of administration not to coincide with g-tube feedings. He was also on scopolamine patches to decrease secretions. Status at Discharge Functional status at discharge: bed bound Time Spent with Patient Time attestation: Total time managing care of this patient today _45___ minutes. Discharge Plan Discharge Anticipated Discharge Date/Time: 07/22/25 10:47 Patient Disposition: Home, Self-Care Discharge Diagnosis: Schizophrenia Vascular Dementia Referrals: Physician,Unknown J [Primary Care Provider, Medical] - 1 Week Discharge Medications: New ipratropium-albuterol 0.5 mg-3 mg(2.5 mg base)/3 mL Solution For Nebulization 3 ml inhalation Q6H PRN (Reason: Shortness Of Breath) Qty: 0 0RF metronidazole 500 mg Tablet 500 mg PO Q12H Qty: 0 0RF scopolamine base [Transderm-Scop] 1 mg over 3 days Patch 3 Day 1.5 mg EAR-BEHIND Q72H Qty: 0 0RF atorvastatin 40 mg Tablet 40 mg G-tube BEDTIME Qty: 0 0RF acetaminophen 325 mg Tablet 975 mg G-tube TID Qty: 0 0RF lidocaine [Lidocaine Pain Relief] 4 % Adhesive Patch,Medicated 1 patch transdermal DAILY Qty: 0 0RF Protocol: Apply to: Apply to: affected area trazodone 50 mg Tablet 150 mg G-tube BEDTIME Qty: 0 0RF doxazosin 1 mg Tablet 1 mg PO BEDTIME Qty: 0 0RF Protocol: Hold for SBP< HOLD for SBP < : 90 clozapine 100 mg Tablet 200 mg G-tube DAILY@1700 Qty: 0 0RF haloperidol 1 mg Tablet 1 mg G-tube DAILY Qty: 0 0RF haloperidol 1 mg Tablet 3 mg G-tube BEDTIME Qty: 0 0RF haloperidol 1 mg Tablet 2 mg G-tube BID PRN (Reason: Agitation) Qty: 0 0RF Antacid Ext Str (calcium carb) 300 mg (750 mg) Tablet,Chewable 2.5 tab G-tube TID PRN (Reason: Heartburn) Qty: 0 0RF famotidine 20 mg Tablet 20 mg G-tube BID Qty: 0 0RF bisacodyl [Gentle Laxative (bisacodyl)] 10 mg Suppository 10 mg [place] DAILY PRN (Reason: Constipation) Qty: 0 0RF gabapentin 300 mg Capsule 300 mg G-tube BEDTIME Qty: 0 0RF capsaicin 0.025 % Cream 1 appl topical TID PRN (Reason: Pain, Moderate(Pain Scale 4-6)) Qty: 0 0RF Protocol: Apply to: Apply to: affected area lower back gabapentin 100 mg Capsule 100 mg G-tube DAILY Qty: 0 0RF clozapine 25 mg Tablet 50 mg G-tube DAILY@1100 Qty: 0 0RF lisinopril 2.5 mg Tablet 2.5 mg PO DAILY Qty: 0 0RF Protocol: Hold for SBP< HOLD for SBP < : 90 simethicone 80 mg Tablet,Chewable 80 mg G-tube Q6H PRN (Reason: Dyspepsia) Qty: 0 0RF valproic acid (as sodium salt) 250 mg/5 mL (5 mL) Solution 1,000 mg G-tube BID@1100,1700 Qty: 0 0RF Discontinued atorvastatin 20 mg tablet 20 mg feeding tube DAILY clozapine 100 mg tablet 200 mg feeding tube BEDTIME clozapine 25 mg tablet 25 mg feeding tube QAM haloperidol 1 mg Tablet 1 mg feeding tube QAM haloperidol 1 mg Tablet 3 mg feeding tube BEDTIME famotidine 20 mg tablet 20 mg feeding tube BID gabapentin 100 mg capsule 300 mg feeding tube BEDTIME gabapentin 100 mg capsule 100 mg feeding tube QAM tamsulosin 0.4 mg capsule 0.4 mg PO BEDTIME trazodone 150 mg tablet 150 mg feeding tube BEDTIME valproic acid (as sodium salt) 250 mg/5 mL Solution 500 mg feeding tube BID ramelteon 8 mg Tablet 8 mg PO BEDTIME Patient Comments: next dose 06/30/25 at HS polyethylene glycol 3350 [Miralax] 17 gram Powder In Packet 17 g feeding tube BID lactulose 10 gram/15 mL Solution 20 g WY BID Patient Comments: next dose 06/30/25 evening haloperidol 2 mg Tablet 2 mg feeding tube BID PRN (Reason: Agitation) multivitamin with minerals Liquid 15 ml feeding tube DAILY lidocaine 4 % Adhesive Patch,Medicated 1 patch TOPICAL DAILY enoxaparin 40 mg/0.4 mL Syringe 40 mg SUBCUT DAILY acetaminophen 500 mg Tablet 1,000 mg feeding tube TID simethicone 80 mg Tablet,Chewable 80 mg PO Q6H PRN (Reason: Dyspepsia) ipratropium-albuterol 0.5 mg-3 mg(2.5 mg base)/3 mL Solution For Nebulization 3 ml INHALATION Q4H PRN (Reason: Shortness Of Breath) bisacodyl 10 mg Suppository 10 mg WY DAILY PRN (Reason: Constipation) guaifenesin 100 mg/5 mL Liquid 200 mg feeding tube Q4H PRN (Reason: Cough) diclofenac sodium 1 % Gel 2 g TOPICAL QID PRN (Reason: Pain) Rx Instructions: apply to single elbow, wrist or hand; for hand includes palm/fingers/back of hand calcium carbonate 500 mg calcium (1,250 mg) Tablet,Chewable 1,000 mg feeding tube TID PRN (Reason: Heartburn) ipratropium-albuterol 0.5 mg-3 mg(2.5 mg base)/3 mL Solution For Nebulization 3 ml inhalation RQ4H WHILE AWAKE PRN (Reason: sob) Qty: 0 0RF Discharge Orders: Discharge Order (Routine); Ordered 07/22/25 Ordered By: Marialuisa Serrano Diet: NPO Activity on Discharge: wheelchair bound Stand Alone Forms: Patient Portal Discharge page Print Language: Latvian Care Plan Goals: medical transfer Health Concerns: medical transfer Plan of Treatment: medical transfer Assessment: SOB. Discharge Date/Time: 07/22/25 12:01
[2025-07-22 11:47] LABS: Alanine Aminotransferase 11 U/L (0-40); Albumin Level 3.8 g/dL (3.5-5.0); Alkaline Phosphatase 96 U/L (39-117); Anion Gap 13 (12-20); Aspartate Amino Transferase 27 U/L (5-37); Blood Urea Nitrogen 41 mg/dL (9-16); Calcium 10.1 mg/dL (8.4-10.2); Carbon Dioxide 29 mmol/L (22-29); Chloride 104 mmol/L (96-108); Creatinine Clr Calc Pharmacy 64.9; Estimated Glomerular Filt Rate > 60; Magnesium 1.9 mg/dL (1.6-2.6); Potassium 4.1 mmol/L (3.3-5.1); Sodium 142 mmol/L (135-145); Total Protein 7.0 g/dL (6.5-8.0)
[2025-07-22 11:55] LABS: Troponin-I High Sensitivity 24.0 ng/L (<3.5-35.0); Troponin-I High Sensitivity 24.6 ng/L (<3.5-35.0)
--- NOTE | 2025-07-22 12:09 | PC.NURSE ---
11:35 vital sighs recheck his temp was 102.5 and he was tachy at 146 his O2 sat was down to 83. Rapid response called on arrival HR 142 BP 137/57. In attendance was Anna Larsen RN Kaylin Greene RN Dr Marques, Celia RT and Angel Luis RT. Report given to Dr Marques. A #22angio was started in his right wrist at 11:45. He was placed on a nonrebreather was placed and O2 set on 25L his o2 sat slowing increased to 90%. He was transfered from the / to stretcher at 11:53. He was stabilized on the stretcher for transport and was discharched to medical floor at 12:01PM.
[2025-07-22 12:39] LABS: Reflex Lactate? Lactic Acid Added
--- NOTE | 2025-07-22 13:14 | PM.EVENT ---
Event Note Date of Service: 07/22/25 Event Note: Patient's EKG demonstrated sinus tach, troponin pending. Plan to transfer patient to Medicine. Lactic acid noted to be 2.9. IV fluids ordered. Patient received IM ceftriaxone in dose of Flagyl. Continues on oxygen at 3 L a minute. Time Spent With Patient Time: Total time managing care of this patient today ____ minutes.
--- NOTE | 2025-07-22 13:15 | PM.EVENT ---
Event Note Date of Service: 07/22/25 Event Note: Patient became increasingly hypoxic requiring non-rebreather. Continues with tachycardia and fever. Rapid response called, plan to transfer patient to tele however he became increasingly hypoxic and hypotensive and was transferred to ICU. Time Spent With Patient Time: Total time managing care of this patient today ____ minutes.
== END 2025-07-22 12:01 | disposition home or self-care (01) | DRG 885 ==
PROVIDERS: Nurse Practitioner Family; Admitting Provider Social Worker; Visit Provider Social Worker
DX: F20.9 Schizophrenia, unspecified (principal); R13.10 Dysphagia, unspecified; F01.50 Vascular dementia, unspecified severity, without behavioral disturbance, psychotic disturbance, mood disturbance, and anxiety; R00.0 Tachycardia, unspecified; R09.02 Hypoxemia; I25.10 Atherosclerotic heart disease of native coronary artery without angina pectoris; I10 Essential (primary) hypertension; K59.00 Constipation, unspecified; N40.0 Benign prostatic hyperplasia without lower urinary tract symptoms; Z93.1 Gastrostomy status; Z79.899 Other long term (current) drug therapy
CPT/HCPCS: 36415; 71250; 80053; 80159; 80164; 83605; 83735; 84484; 85025; 85048; 87040; 92526; 93005; 94660; 97116; 97162; 97530; J0696

== ENCOUNTER 2025-06-30 14:20 | Outpatient (BNV) | payer MEDICARE, SELFPAY | END 2025-07-22 10:29 | PROVIDERS: Admitting Provider Social Worker; Visit Provider Internal Medicine | DX: R00.0 Tachycardia, unspecified (principal) | CPT/HCPCS: 93010 ==

== ENCOUNTER → 2025-06-30 14:20 | Outpatient (BNV) | payer MEDICARE, SELFPAY | PROVIDERS: Admitting Provider Social Worker; Visit Provider Social Worker | DX: F20.9 Schizophrenia, unspecified (principal) | CPT/HCPCS: 90792; 99231; 99232 ==

== ENCOUNTER → 2025-06-30 14:20 | Outpatient (BNV) | payer MEDICARE, SELFPAY | PROVIDERS: Admitting Provider Social Worker; Visit Provider Nurse Practitioner Family | DX: R13.10 Dysphagia, unspecified (principal) | CPT/HCPCS: 99222 ==

== ENCOUNTER 2025-07-22 12:54 | Outpatient (BNV) | payer MEDICARE, SELFPAY | END 2025-07-23 07:00 | PROVIDERS: Admitting Provider Nurse Practitioner Family; Visit Provider Internal Medicine | DX: I50.9 Heart failure, unspecified (principal) | CPT/HCPCS: 93306 ==

== ENCOUNTER 2025-07-22 12:54 | Inpatient (IN) | payer MEDICARE, SELFPAY ==
[2025-07-22] VITALS (21 sets, daily range): BP systolic 68–152; BP diastolic 31–85; PULSE 101–142; RESP 11–22; TEMP 36.3–37.8; O2SAT 90–99; BMI 23.1
--- NOTE | ~2025-07-22 | XR_ITS ---
CLINICAL HISTORY: line placement Pelvis, 1 view COMPARISON: None provided FINDINGS: No acute fracture. No dislocation. Lower lumbar fusion hardware in place. Unremarkable soft tissues. Left femoral central line in place with tip projecting over the left sacrum. IMPRESSION: No acute findings. Left femoral central line in place. This document has been electronically signed by: Giuseppe Dc MD on 07/22/2025 22:48:40
--- NOTE | ~2025-07-22 | XR_ITS ---
CLINICAL HISTORY: TLC line placement 1 view chest x-ray Comparison: None provided Findings: No consolidation or effusion. Normal size heart. Left the tissue neck approach central venous catheter with tip projected over the aortic arch, to the left of midline. No acute fracture. IMPRESSION: 1. Left central catheter with tip projected over the aortic arch. Check arterial versus venous. 2. No acute cardiopulmonary findings. This document has been electronically signed by: Alvaro Sullivan MD on 07/22/2025 20:53:30
--- NOTE | 2025-07-22 12:45 | PC.RT ---
Rapid response called to [facility]. Upon arrival, staff unable to get an SPO2 reading, RN states best reading was 83% on 3L. Pt transitioned to 15L NRB in a timely fashion. SPO2 still unable to obtain quality reading. HR >140 and BP unreadable nad pt temp 102 per RN. RN stated that pt had a CT scan this am and has possible aspiration pneumonia. Pt has rhonchi breath sounds bilateral. Pt has a strong and junky cough but unable to spit, pt was orally suctioned by RT, small amount of thick yellow/gillis secretions. Pt transitioned to stretcher bed and sat up, SPO2 reading 92% on 15L NRB. Per ECONOMIC DEVELOPMENT COORDINATOR Adrienne, pt should be moved to IMC. Pt transported to IMC on NRB. In IMC hallway, RN attempted a manual BP and stated it was in the 70's . Cory at bedside and stated to move pt to ICU while he speaks in ICU MD. Upon arrival to ICU, pt transferred to bed and placed on HFNC as documented. SPO2 94%, HR 140. Pt is ow full ICU care, will continue to monitor.
[2025-07-22 13:48] LABS: Hematocrit 36.2 % (42.0-52.0); Hemoglobin 12.5 g/dl (14.0-18.0); Mean Corpuscular HGB Conc 34.5 g/dl (31.0-36.0); Mean Corpuscular Hemoglobin 31.9 pg (27.0-33.0); Mean Corpuscular Volume 92.3 fL (80.0-98.0); NRBC Abs Auto 0.000 X10*3/uL (0.0-0.012); NRBC Pct Auto 0.0 /100WBC (0.0-0.2); Platelet Count 219 X10*3/uL (160-400); Red Blood Count 3.92 X10*6/uL (4.60-5.80); White Blood Count 7.4 X10*3/uL (4.8-10.8)
[2025-07-22 13:52] LABS: NT Pro B Type Natriuretic Pept 947.3 pg/mL (<300)
[2025-07-22 13:55] LABS: Alanine Aminotransferase 10 U/L (0-40); Albumin Level 3.7 g/dL (3.5-5.0); Anion Gap 15 (12-20); Aspartate Amino Transferase 30 U/L (5-37); Blood Urea Nitrogen 42 mg/dL (9-16); Calcium 9.8 mg/dL (8.4-10.2); Carbon Dioxide 25 mmol/L (22-29); Chloride 106 mmol/L (96-108); Estimated Glomerular Filt Rate 52; Magnesium 2.0 mg/dL (1.6-2.6); Potassium 4.3 mmol/L (3.3-5.1); Sodium 142 mmol/L (135-145); Total Protein 7.1 g/dL (6.5-8.0)
[2025-07-22 14:06] LABS: Alkaline Phosphatase 97 U/L (39-117)
--- OUTSIDE RECORDS SUMMARY | 2025-07-22 14:12 | XMS_ITS | Clinical Summary ---
Author Organization [facility] jacques Address [address] [place] [address] Care Team Providers Care Retail Interior Designer Name Role Phone Skye De Leon MD Primary Care Provider [phone] Allergies Active Allergy Reactions Criticality Noted Date [...] within 12 hours or as directed by Active tamsulosin (FLOMAX) 0.4 mg cap 24 [...] a day as needed (For mild/moderate agitation.). Active ketoconazole (NIZORAL) 2 % cream Apply [...] every 2 hours as needed for congestion. Active carbidopa-levod opa (SINEMET) 25-100 mg per tablet 2 tablets by G-tube route 3 times a day. Discontin ued(Stop taking at Discharge ) potassium, sodium phosphates (PHOS-NAK) 280-160-250 mg PwPk Take 1 packet by mouth 3 times a day before meals. Discontin ued(Stop taking at Discharge ) traMADoL 25 mg Tab 3 tablets (75 mg total) by G-tube route 4 times a day. Discontin ued(Stop taking at Discharge ) hydrOXYzine HCL (ATARAX) 25 MG tablet 1 tablet (25 mg total) by G-tube route 4 times a day. Discontin ued(Stop taking at Discharge ) gabapentin (NEURONTIN) 100 MG capsule 1 capsule (100 mg total) by G-tube route every morning & every evening. Discontin ued(Stop taking at Discharge ) fluticasone propionate (FLONASE) 50 mcg/actuation nasal spray 1 spray by Each Nare route daily. Discontin ued(Stop taking at Discharge ) fluoride, sodium, (FLUORIDEX DAILY DEFENSE) 1.1 % Pste Apply 1 Application to teeth at bedtime. Discontin ued(Stop taking at Discharge ) docusate sodium (COLACE) 50 mg/5 mL liquid 10 mL (100 mg total) by G-tube route every morning & every evening. Discontin ued(Stop taking at Discharge ) cloZAPine (CLOZARIL) 100 MG tablet 1 tablet (100 mg total) by G-tube route at bedtime. Take with 75 mg for total dose of 175 mg at bedtime 09/04/2 025 Discontin ued(Stop taking at Discharge ) [...] Encounters Date Type Department Care Team Description 04/15/2025 6:17 PM EDT - 06/25/2025 7:33 PM EDT Hospital Encounter [facility] Medicine [address] [place] [address] Rajwinder Caldwell MD Dagan, Alon, MD Grossman, MD Tonia Harris, MD Prashant Hilliard, MD Mary Vergara, MD Magnus Vera Matthew, MD Basilio, Carlo, MD Roy, MD Elizabeth Haro, MD Tere White Andrew, MD Beltran, MD Rod Segura, MD Giancarlo CamarilloUrban MD Hale, Caleb P, MD Minor, Noah A, MD Wagner, Benjamin, MD Li, MD Trinidad Jorge David, MD Rosenberg, MD Mariano Altered mental status, unspecified altered mental status type (Primary Dx); Tachycardia; Unclassified epileptic seizures ; Chest pain, unspecified type; Schizoaffective disorder, depressive type ; Aspiration into airway, sequela; Aspiration pneumonitis ; 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; Abnormal electrocardiography [...] the Last Year Not on file 2024 [facility] Utilities Answer Date Recorded In the [...] 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 on file Not [...] 03/18/2017, 09/30/2009, 12/20/2002, Additional history exists Pneumococcal Vaccine: 50+ Years Completed 06/20/2022, 10/05/2015, 03/02/2015 Zoster Vaccine Completed [...] ECG 12-LEAD Routine 06/11/2025 11:23 AM EDT correction current use of therapeutic drug [place] MODIFIED [...] ECG 12-LEAD Routine 05/25/2025 12:17 PM EDT 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 VALPROIC ACID [...] 11:42 AM EDT Schizoaffective disorder, depressive type POCI GLUCOSE Routine 05/16/2025 12:26 PM EDT [...] 3:43 PM EDT Schizoaffective disorder, depressive type CBC AND DIFFERENTIAL Timed 05/06/2025 3:23 PM [...] 05/01/2025 6:30 AM EDT Unclassified epileptic seizures CBC AND DIFFERENTIAL Timed 05/01/2025 6:23 AM EDT CBC AND DIFFERENTIAL Timed 05/01/2025 6:23 AM EDT HC VEEG BY TECH 2-12 HOURS UNMONITORED Routine 04/30/2025 2:04 PM EDT Unclassified epileptic seizures URINALYSIS WITH MICROSCOPIC Routine 04/30/2025 12:21 PM [...] 04/24/2025 9:35 AM EDT Unclassified epileptic seizures CBC AND DIFFERENTIAL Routine 04/24/2025 7:58 AM [...] 04/23/2025 7:21 AM EDT HC VEEG BY Status[employer] EA INCR 12-26 HR UNMONITORED Routine 04/23/2025 7:08 AM EDT Unclassified epileptic seizures HC EEG W O VIDEO BY TECH 2-12 HR UNMONITORED Routine 04/22/2025 5:30 PM EDT Unclassified epileptic seizures XR PORTABLE CHEST 1 VW STAT 04/22/2025 [...] AND DIFFERENTIAL Routine 04/22/2025 6:56 AM EDT LIPID PANEL Add-On 01/20/2023 8:26 AM EDT Pneumonitis due to inhalation of food and vomit from Last 3 Months or Most Recently Relevant to Health Maintenance Results * ECG 12 lead (06/25/2025 11:19 AM EDT) Only the most recent of16 resultswithin the time period is included. Ventricular Heart Rate 101 BPM EKG BUR MUSE Atrial Heart Rate 101 BPM EKG BUR MUSE WA Interval 142 ms EKG BUR MUSE QRSD Interval 108 ms EKG B[facility] MUSE QT Interval 372 ms EKG B[facility] MUSE QTC Interval 482 ms EKG BUR MUSE P [place] 30 degrees EKG BUR MUSE R [place] -29 degrees EKG BUR MUSE T Wave [place] 30 degrees EKG BUR MUSE 06/25/2025 11:1 [...] 18-Jun-2025 11:53, No significant change was found us Mariano Crabtree MD ECG ORDERABLES Final Result EKG BUR MUSE [address] [place] [id number] * (ABNORMAL) Renal Function Panel (06/22/2025 5:26 AM EDT) Only the most recent of3 resultswithin the time period is included. Sodium 142 135 - 147 mmol/L 06/22/2025 6:44 AM EDT [facility] Potassium 4.2 3.5 - 5.4 mmol/L 06/22/2025 6:44 AM EDT [facility] Chloride 103 96 - 108 mmol/L 06/22/2025 6:44 AM EDT [facility] Total CO2/Bicarbonate 28 22 - 32 mmol/L 06/22/2025 6:44 AM EDT [facility] Anion Gap 11 10 - 18 mmol/L 06/22/2025 6:44 AM EDT [facility] BUN 27(H) 6 - 20 mg/dL 06/22/2025 6:44 AM EDT [facility] Creatinine, Blood 0.80 0.50 - 1.20 mg/dL 06/22/2025 6:44 AM EDT [facility] Glucose, Blood 141(H) 70 - 100 mg/dL 06/22/2025 6:44 AM EDT [facility] Calcium 9.0 8.4 - 10.3 mg/dL 06/22/2025 6:44 AM EDT [facility] Albumin, Blood 3.1(L) 3.5 - 5.2 g/dL 06/22/2025 6:44 AM EDT [facility] Phosphorus 3.7 2.7 - 4.5 mg/dL 06/22/2025 6:44 AM EDT [facility] Magnesium, Blood 2.2 1.6 - 2.6 mg/dL 06/22/2025 6:44 AM EDT [facility] Estimated GFR(CKD-EPI) 96 mL/min/BSA 06/22/2025 6:44 AM EDT [facility] Blood PERIPHERAL BLOOD SPECIMEN / Unknown Venipuncture / Unknown 06/22/2025 5:26 AM EDT 06/22/2025 5:47 AM EDT us Govind Olivo MD LAB BLOOD ORDERABLES Final Result [facility] [address] [place] [address], [place] * (ABNORMAL) CBC and Differential (06/22/2025 12:37 AM EDT) Only the most recent of22 resultswithin the time period is included. WBC 6.62 4.00 - 10.00 K/uL 06/22/2025 1:15 AM [facility] RBC 3.67(L) 4.60 - 6.10 M/uL 06/22/2025 1:15 AM [facility] Hemoglobin 11.3(L) 13.7 - 17.5 g/dL 06/22/2025 1:15 AM [facility] Hematocrit 34.7(L) 40.0 - 51.0 % 06/22/2025 1:15 AM [facility] MCV 95 82 - 98 fL 06/22/2025 1:15 AM [facility] MCH 30.8 26.0 - 32.0 pg 06/22/2025 1:15 AM [facility] MCHC 32.6 32.0 - 37.0 g/dL 06/22/2025 1:15 AM [facility] RDW 15.5 10.5 - 15.5 % 06/22/2025 1:15 AM [facility] RDW-SD 53.1(H) 35.1 - 46.3 fL 06/22/2025 1:15 AM [facility] Platelet Count 185 150 - 400 K/uL 06/22/2025 1:15 AM [facility] Nucleated RBC 0 <=0 #/100 WBC 06/22/2025 1:15 AM [facility] Neutrophil 67.5 34.0 - 71.0 % 06/22/2025 1:15 AM [facility] Lymphocyte 20.1 19.0 - 53.0 % 06/22/2025 1:15 AM [facility] Monocyte 10.6 5.0 - 13.0 % 06/22/2025 1:15 AM [facility] Eosinophil 0.0(L) 1.0 - 7.0 % 06/22/2025 1:15 AM [facility] Basophil 0.3 0.0 - 1.0 % 06/22/2025 1:15 AM [facility] Immature Granulocyte ([place], Myelo, Promyelocyte) 1.5(H) 0.0 - 0.6 % 06/22/2025 1:15 AM EDT [facility] Absolute Neutrophil Count 4.47 1.60 - 6.10 K/uL 06/22/2025 1:15 AM EDT [facility] Absolute Lymphocyte Count 1.33 1.20 - 3.70 K/uL 06/22/2025 1:15 AM EDT [facility] Absolute Monocyte Count 0.70 0.20 - 0.80 K/uL 06/22/2025 1:15 AM EDT [facility] Absolute Eosinophil Count 0.00(L) 0.04 - 0.54 K/uL 06/22/2025 1:15 AM EDT [facility] Absolute Basophil Count 0.02 0.01 - 0.08 K/uL 06/22/2025 1:15 AM EDT [facility] Absolute Immature Granulocyte ([place], Myelo, Promyelocyte) 0.10(H) 0.00 - 0.09 K/uL 06/22/2025 1:15 AM EDT [facility] Blood PERIPHERAL BLOOD SPECIMEN / Unknown Venipuncture / Unknown 06/22/2025 12:37 AM EDT 06/22/2025 1:04 AM EDT us Govind Olivo MD LAB BLOOD ORDERABLES Final Result [facility] [address] [place] [address], [place] * XR Abdomen 1 VW (06/16/2025 [...] Govind Olivo MD IMG DIAGNOSTIC IMAGING [facility] Final Result * (ABNORMAL) Valproic Acid Level (06/15/2025 9:42 PM EDT) Only the most recent of2 resultswithin the time period is included. Valproic Acid Level, Blood 49(L) 50 - 100 ug/mL 06/15/2025 10:29 PM EDT [facility] Blood PERIPHERAL BLOOD SPECIMEN / Unknown Venipuncture / Unknown 06/15/2025 9:42 PM EDT 06/15/2025 9:45 PM EDT us Govind Olivo MD LAB BLOOD ORDERABLES Final Result [facility] [address] [place] [address], [place] * Clozapine Level, Blood (06/15/2025 9:41 [...] analytical performance characteristics have been determined by [employer] [place], [place]. It has not been cleared or approved by the U.S. Food and Drug Administration. This assay has been validated pursuant to the CLIA regulations and is used for clinical purposes. Blood PERIPHERAL BLOOD SPECIMEN / Unknown Venipuncture / Unknown 06/15/2025 9:41 PM EDT 06/15/2025 9:45 PM EDT Narrative [facility] [place] - 06/19/2025 3:00 PM EDT Performing Organization Information: Site ID: [id number] Name: [employer] Address: [address] [place] [phone] Director: LEONEL RUIZ MD,PHD us Govind Olivo MD LAB BLOOD ORDERABLES Final Result ADRIANA FONTANA [address] [address], * Valproic Acid Level, Free (06/15/2025 9:41 [...] Performing Organization Information: Site ID: [id number] Name: [employer] Address: [address] [place] [phone] Director: FIDEL CRAWFORD MD us Govind Olivo MD LAB BLOOD ORDERABLES Final Result [address] [address], * (ABNORMAL) CBC (06/15/2025 6:23 AM EDT) Only the most recent of12 resultswithin the time period is included. WBC 8.69 4.00 - 10.00 K/uL 06/15/2025 6:52 AM EDT [facility] RBC 3.83(L) 4.60 - 6.10 M/uL 06/15/2025 6:52 AM EDT [facility] Hemoglobin 11.6(L) 13.7 - 17.5 g/dL 06/15/2025 6:52 AM EDT [facility] Hematocrit 36.2(L) 40.0 - 51.0 % 06/15/2025 6:52 AM EDT [facility] MCV 95 82 - 98 fL 06/15/2025 6:52 AM EDT [facility] MCH 30.3 26.0 - 32.0 pg 06/15/2025 6:52 AM EDT [facility] MCHC 32.0 32.0 - 37.0 g/dL 06/15/2025 6:52 AM EDT [facility] RDW 14.5 10.5 - 15.5 % 06/15/2025 6:52 AM EDT [facility] RDW-SD 49.3(H) 35.1 - 46.3 fL 06/15/2025 6:52 AM EDT [facility] Platelet Count 256 150 - 400 K/uL 06/15/2025 6:52 AM EDT [facility] Nucleated RBC 0 <=0 #/100 WBC 06/15/2025 6:52 AM EDT [facility] Blood PERIPHERAL BLOOD SPECIMEN / Unknown Venipuncture / Unknown 06/15/2025 6:23 AM EDT 06/15/2025 6:36 AM EDT us Urban Mondragon MD LAB BLOOD ORDERABLES Final Resul t Performing Organization Address City/[facility]/ZIP Co de Phone Number [facility] [address] [place] [address], [place] * Phosphorus (06/15/2025 6:22 AM EDT) Only the most recent of19 resultswithin the time period is included. Phosphorus 3.4 2.7 - 4.5 mg/dL 06/15/2025 7:14 AM EDT [facility] Blood PERIPHERAL BLOOD SPECIMEN / Unknown Venipuncture / Unknown 06/15/2025 6:22 AM EDT 06/15/2025 6:36 AM EDT us Urban Mondragon MD LAB BLOOD ORDERABLES Final Resul t Performing Organization Address City/[facility]/ZIP Co de Phone Number [facility] [address] [place] [address], [place] * Magnesium (06/15/2025 6:22 AM EDT) Only the most recent of19 resultswithin the time period is included. Magnesium, Blood 2.1 1.6 - 2.6 mg/dL 06/15/2025 7:14 AM EDT [facility] Blood PERIPHERAL BLOOD SPECIMEN / Unknown Venipuncture / Unknown 06/15/2025 6:22 AM EDT 06/15/2025 6:36 AM EDT us Urban Mondragon MD LAB BLOOD ORDERABLES Final Resul t [facility] [address] [place] [address], [place] * (ABNORMAL) Hepatic Function Panel (06/15/2025 6:22 AM EDT) Only the most recent of17 resultswithin the time period is included. Total Protein 5.9(L) 6.4 - 8.3 g/dL 06/15/2025 7:32 AM EDT [facility] Albumin, Blood 2.9(L) 3.5 - 5.2 g/dL 06/15/2025 7:32 AM EDT [facility] Globulin Result 3.0 2.0 - 4.0 g/dL 06/15/2025 7:32 AM EDT [facility] Total Bilirubin 0.2 0.0 - 1.5 mg/dL 06/15/2025 7:32 AM EDT [facility] Direct Bilirubin <0.1 0.0 - 0.3 mg/dL 06/15/2025 7:32 AM EDT [facility] Alkaline Phosphatase 117 40 - 130 U/L 06/15/2025 7:32 AM EDT [facility] AST (SGOT) 22 0 - 40 U/L 06/15/2025 7:32 AM EDT [facility] ALT (SGPT) 14 0 - 40 U/L 06/15/2025 7:32 AM EDT [facility] Blood PERIPHERAL BLOOD SPECIMEN / Unknown Venipuncture / Unknown 06/15/2025 6:22 AM EDT 06/15/2025 6:36 AM EDT us Urban Mondragon MD LAB BLOOD ORDERABLES Final Resul t [facility] [address] [place] [address], [place] * (ABNORMAL) Basic Metabolic Panel (06/15/2025 6:22 AM EDT) Only the most recent of20 resultswithin the time period is included. Sodium 142 135 - 147 mmol/L 06/15/2025 7:14 AM EDT [facility] Potassium 4.2 3.5 - 5.4 mmol/L 06/15/2025 7:14 AM EDT [facility] Chloride 104 96 - 108 mmol/L 06/15/2025 7:14 AM EDT [facility] Total CO2/Bicarbonat e 29 22 - 32 mmol/L 06/15/2025 7:14 AM EDT [facility] Anion Gap 9(L) 10 - 18 mmol/L 06/15/2025 7:14 AM EDT [facility] BUN 28(H) 6 - 20 mg/dL 06/15/2025 7:14 AM EDT [facility] Creatinine, Blood 0.90 0.50 - 1.20 mg/dL 06/15/2025 7:14 AM EDT [facility] Glucose, Blood 109(H) 70 - 100 mg/dL 06/15/2025 7:14 AM EDT [facility] Calcium 8.9 8.4 - 10.3 mg/dL 06/15/2025 7:14 AM EDT [facility] Blood PERIPHERAL BLOOD SPECIMEN / Unknown Venipuncture / Unknown 06/15/2025 6:22 AM EDT 06/15/2025 6:36 AM EDT us Urban Mondragon MD LAB BLOOD ORDERABLES Final Resul t [facility] [address] [place] [address], * (ABNORMAL) POCT Glucose (06/11/2025 1:54 PM EDT) Only the most recent of51 resultswithin the time period is included. Glucose, POC 118(H) 70 - 100 mg/dL 06/11/2025 2:05 PM EDT [facility] Comment: @Serial [id number] @Decal Maker [id number] Blood 06/11/2025 1:54 PM EDT 06/11/2025 2:05 PM EDT us Feliciano Choi MD POCT ORDERABLES - DEVICE Patricia l Result [facility] [address] [place] [address], [place] * [place] Modified Barium Swallow Incl [...] in astandalone note by the Speech-Language Pathologist ([facility], Notes, SpeechPathology). BY ELECTRONICALLY SIGNING THIS [...] 10.00 K/uL 06/10/2025 9:52 AM EDT [facility] Neutrophil 85.5(H) 34.0 - 71.0 % 06/10/2025 9:52 AM EDT [facility] Lymphocyte 7.7(L) 19.0 - 53.0 % 06/10/2025 9:52 AM EDT [facility] Monocyte 5.6 5.0 - 13.0 % 06/10/2025 9:52 AM EDT [facility] Eosinophil 0.0(L) 1.0 - 7.0 % 06/10/2025 9:52 AM EDT [facility] Basophil 0.4 0.0 - 1.0 % 06/10/2025 9:52 AM EDT [facility] Nucleated RBC 0 <=0 #/100 WBC 06/10/2025 9:52 AM EDT [facility] Absolute Neutrophil Count 16.18(H) 1.60 - 6.10 K/uL 06/10/2025 9:52 AM EDT [facility] Absolute Lymphocyte Count 1.45 1.20 - 3.70 K/uL 06/10/2025 9:52 AM EDT [facility] Absolute Monocyte Count 1.06(H) 0.20 - 0.80 K/uL 06/10/2025 9:52 AM EDT [facility] Absolute Eosinophil Count 0.00(L) 0.04 - 0.54 K/uL 06/10/2025 9:52 AM EDT [facility] Absolute Basophil Count 0.07 0.01 - 0.08 K/uL 06/10/2025 9:52 AM EDT [facility] Immature Granulocyte ([place], Myelo, Promyelocyte) 0.8(H) 0.0 - 0.6 % 06/10/2025 9:52 AM EDT [facility] Absolute Immature Granulocyte ([place], Myelo, Promyelocyte) 0.16(H) 0.00 - 0.09 K/uL 06/10/2025 9:52 AM EDT [facility] Blood PERIPHERAL BLOOD SPECIMEN / Unknown Venipuncture / Unknown 06/10/2025 7:20 AM EDT 06/10/2025 7:30 AM EDT us Feliciano Choi MD LAB BLOOD ORDERABLES Final Re sult [facility] [address] [place] [address], * (ABNORMAL) Manual Diff and Morph (06/02/2025 5:41 AM EDT) Only the most recent of5 resultswithin the time period is included. Neutrophil 73(H) 34 - 71 % 06/02/2025 8:02 AM EDT [facility] Lymphocyte 12(L) 19 - 53 % 06/02/2025 8:02 AM EDT [facility] Monocyte 7 5 - 13 % 06/02/2025 8:02 AM EDT [facility] Eosinophil 0(L) 1 - 7 % 06/02/2025 8:02 AM EDT [facility] Basophil 0 0 - 1 % 06/02/2025 8:02 AM EDT [facility] Band 4 0 - 5 % 06/02/2025 8:02 AM EDT [facility] Metamyelocyte 2(H) <=0 % 06/02/2025 8:02 AM [facility] Myelocyte 2(H) <=0 % 06/02/2025 8:02 AM [facility] Absolute Neutrophil Count 15.65(H) 1.60 - 6.10 K/uL 06/02/2025 8:02 AM [facility] Absolute Lymphocyte Count 2.44 1.20 - 3.70 K/uL 06/02/2025 8:02 AM [facility] Absolute Monocyte Count 1.42(H) 0.20 - 0.80 K/uL 06/02/2025 8:02 AM [facility] Absolute Eosinophil Count 0.00(L) 0.04 - 0.54 K/uL 06/02/2025 8:02 AM [facility] Absolute Basophil Count 0.00(L) 0.01 - 0.08 K/uL 06/02/2025 8:02 AM [facility] Platelet Est Normal Normal 06/02/2025 8:02 AM [facility] ANISOCYTOSIS 1+ 06/02/2025 8:02 AM [facility] Microcytosis 1+ 06/02/2025 8:02 AM [facility] Poikilocytosis 1+ 06/02/2025 8:02 AM [facility] ACANTHOCYTES 1+ 06/02/2025 8:02 AM [facility] OVALOCYTES 1+ 06/02/2025 8:02 AM [facility] SCHISTOCYTES 1+ 06/02/2025 8:02 AM [facility] SPHEROCYTES 1+ 06/02/2025 8:02 AM [facility] TEAR DROP CELLS 1+ 8:02 AM [facility] Total Cells Counted 100 06/02/2025 8:02 AM [facility] Blood PERIPHERAL BLOOD SPECIMEN / Unknown Venipuncture / Unknown 06/02/2025 5:41 AM EDT 06/02/2025 5:45 AM EDT us Rabia Du MD LAB BLOOD ORDERABLES Final Resul t [facility] [address] [place] [address], [place] * XR Abdomen Portable (05/29/2025 11:22 AM EDT) Only the most recent of4 resultswithin the time period is included. Anatomical [...] ABOVE PROCEDURE(S) AND AGREE WITHTHE FINDINGS DOCUMENTED. Marlilli Mccarty MD, electronically signed on May 30 2025 04:26PM Rabia Velasco MD IMG DIAGNOSTIC IMAGING ORDERABLE S Final Result * RBC WBC PLT Morphology (05/29/2025 6:20 AM EDT) Only the most recent of2 resultswithin the time period is included. Pathologist [facility] Platelet Est Normal Normal 05/29/2025 8:13 AM EDT [facility] ANISOCYTOSIS 1+ 05/29/2025 8:13 AM EDT [facility] Microcytosis 1+ 05/29/2025 8:13 AM EDT [facility] POLYCHROMASIA 1+ 05/29/2025 8:13 AM EDT [facility] Poikilocytosis 105/29/2025 8:13 AM EDT [facility] OVALOCYTES 1+ 05/29/2025 8:13 AM EDT [facility] SPHEROCYTES 105/29/2025 8:13 AM EDT [facility] TEAR DROP CELLS 1 8:13 AM EDT [facility] ACANTHOCYTES 105/29/2025 8:13 AM EDT [facility] Blood PERIPHERAL BLOOD SPECIMEN / Unknown Venipuncture / Unknown 05/29/2025 6:20 AM EDT 05/29/2025 6:29 AM EDT Rabia Velasco MD LAB BLOOD ORDERABLES Final Resul t [facility] [address] [address], * (ABNORMAL) C-Reactive Protein (05/28/2025 5:53 AM EDT) Pathologist [facility] C-Reactive Protein (CRP) >300.0(H) 0.0 - 5.0 mg/L 05/28/2025 12:39 PM EDT [facility] Blood PERIPHERAL BLOOD SPECIMEN / Unknown Venipuncture / Unknown 05/28/2025 5:53 AM EDT 05/28/2025 6:01 AM EDT us Rabia Velasco MD LAB BLOOD ORDERABLES Final Resul t [facility] [address] [place] [address], [place] * CT Angiogram Chest PE : [...] 2.0 mmol/L 2025 8:34 PM EDT [facility] Blood PERIPHERAL BLOOD SPECIMEN / Unknown Venipuncture / Unknown 2025 8:28 PM EDT 2025 8:31 PM EDT us Rabia Velasco MD LAB BLOOD ORDERABLES Final Resul t [facility] [address] [place] [address], * (ABNORMAL) Blood Gas, Venous (2025 8:28 PM EDT) Only the most recent of2 resultswithin the time period is included. pH, Venous 7.47(H) 7.35 - 7.45 2025 8:35 PM EDT [facility] pCO2, Venous 41 35 - 45 mmHg 2025 8:35 PM EDT [facility] pO2, Venous 82 80 - 105 mmHg 2025 8:35 PM EDT [facility] HCO3, Venous 30 21 - 30 mmol/L 2025 8:35 PM EDT [facility] Carboxyhemoglo bin, VBG 1.6(H) 0.5 - 1.5 % 2025 8:35 PM EDT [facility] Methemoglobin, VBG 1.0(H) 0.2 - 0.6 % 2025 8:35 PM EDT [facility] Blood Venipuncture / Unknown 2025 8:28 PM EDT 2025 8:31 PM EDT us Rabia Velasco MD LAB BLOOD ORDERABLES Final Resul t [facility] [address] [place] [address], * (ABNORMAL) Comprehensive Metabolic Panel (2025 8:23 PM EDT) Only the most recent of2 resultswithin the time period is included. Pathologist [facility] Sodium 145 135 - 147 mmol/L 2025 9:04 PM EDT [facility] Potassium 4.0 3.5 - 5.4 mmol/L 2025 9:04 PM EDT [facility] Chloride 106 96 - 108 mmol/L 2025 9:04 PM EDT [facility] Total CO2/Bicarbonate 27 22 - 32 mmol/L 2025 9:04 PM EDT [facility] Anion Gap 12 10 - 18 mmol/L 2025 9:04 PM EDT [facility] LABORATORY BUN 36(H) 6 - 20 mg/dL 2025 9:04 PM EDT [facility] Creatinine, Blood 0.90 0.50 - 1.20 mg/dL 2025 9:04 PM EDT [facility] Glucose, Blood 168(H) 70 - 100 mg/dL 2025 9:04 PM EDT [facility] Calcium 9.1 8.4 - 10.3 mg/dL 2025 9:04 PM EDT [facility] Total Protein 6.5 6.4 - 8.3 g/dL 2025 9:04 PM EDT [facility] Albumin, Blood 2.9(L) 3.5 - 5.2 g/dL 2025 9:04 PM EDT [facility] Globulin Result 3.6 2.0 - 4.0 g/dL 2025 9:04 PM EDT [facility] AST (SGOT) 15 0 - 40 U/L 2025 9:04 PM EDT [facility] ALT (SGPT) 8 0 - 40 U/L 2025 9:04 PM EDT [facility] Alkaline Phosphatase 125 40 - 130 U/L 2025 9:04 PM EDT [facility] Total Bilirubin 0.2 0.0 - 1.5 mg/dL 2025 9:04 PM EDT [facility] Blood PERIPHERAL BLOOD SPECIMEN / Unknown Venipuncture / Unknown 2025 8:23 PM EDT 2025 8:27 PM EDT us Rabia Velasco MD LAB BLOOD ORDERABLES Final Resul t [facility] [address] [place] [address], [place] * Culture, Respiratory (Incl Gram) (2025 5:55 PM EDT) Respiratory Culture Heavy growth commensal respiratory nica STEPHEN 05/31/2025 2:23 PM EDT [facility] Smear,Gram Stain >25 PMNs and <10 epithelial cells/100X field 05/31/2025 2:23 PM EDT [facility] Smear,Gram Stain 4+ Multiple Organisms Present Consistent with Oropharyngeal Nica 05/31/2025 2:23 PM EDT [facility] Respiratory SPUTUM SPECIMEN OBTAINED BY SPUTUM INDUCTION / Unknown Collection / Unknown 2025 5:55 PM EDT 2025 6:16 PM EDT us Rabia Velasco MD MICROBIOLOGY - GENERAL ORDERABLE S Final Result Performing Organization Address [facility] de Phone Number [facility] [address] [place] [address], [place] * Nasal MRSA/SA By PCR (2025 3:35 PM EDT) MRSA PCR Negative Negative 05/28/2025 10:52 AM EDT [facility] S. aureus PCR Negative Negative 05/28/2025 10:52 AM EDT [facility] Swab BOTH ANTERIOR NARES / Unknown 2025 3:35 PM EDT 2025 4:00 PM EDT Narrative [facility] - 05/28/2025 10:52 AM EDT Test performed by GeneXpert real-time PCR. us Rabia Velasco MD MICROBIOLOGY - GENERAL ORDERABLE S Final Result Performing Organization Address [facility] Phone Number [facility] [address] [place] [address], [place] * XR Chest 1 VW Portable [...] 5:11 AM EDT) Only the most recent of2 resultswithin the time period is included. Micro Urine Reflex Hold Received 05/25/2025 8:01 AM EDT [facility] AP Urine MID-STREAM URINE SPECIMEN / Unknown Collection / Unknown 05/25/2025 5:11 AM EDT 05/25/2025 5:15 AM EDT us Rabia Velasco MD URINE ORDERABLES Final Result [facility] AP [address] [place] [address], [place] * (ABNORMAL) Urinalysis with Reflex to Urine Culture (05/25/2025 5:11 AM EDT) Only the most recent of2 resultswithin the time period is included. Color, Urine Yellow Yellow, Colorless, Straw 05/25/2025 5:41 AM EDT [facility] Clarity, Urine Clear Clear 05/25/2025 5:41 AM EDT [facility] pH, Urine 7.5 5.0 - 8.0 05/25/2025 5:41 AM EDT [facility] Protein, Urine 50 mg/dL(A) Negative 05/25/2025 5:41 AM EDT [facility] Glucose, Urine Negative Negative 05/25/2025 5:41 AM EDT [facility] Ketone, Urine Negative Negative 05/25/2025 5:41 AM EDT [facility] Bilirubin, Urine Negative Negative 05/25/2025 5:41 AM EDT [facility] Urobilinogen, Urine Normal 0.2-1.0 mg/dL 05/25/2025 5:41 AM EDT [facility] Blood, Urine Negative Negative 05/25/2025 5:41 AM EDT [facility] Leukocyte Esterase, Urine Negative Negative 05/25/2025 5:41 AM EDT [facility] Nitrite, Urine Negative Negative 05/25/2025 5:41 AM EDT [facility] Specific [place], Urine 1.029 1.001 - 1.050 05/25/2025 5:41 AM EDT [facility] White Blood Cells, Urine <1 0 - 5 /hpf 05/25/2025 5:41 AM EDT [facility] Red Blood Cells, Urine 2 0 - 2 /hpf 05/25/2025 5:41 AM EDT [facility] Urine MID-STREAM URINE SPECIMEN / Unknown Collection / Unknown 05/25/2025 5:11 AM EDT 05/25/2025 5:15 AM EDT Rabia Velasco MD URINE ORDERABLES Final Result [facility] [address] [place] [address], [place] * Culture, Blood (05/24/2025 6:58 PM EDT) Culture No growth after 5 days STEPHEN 05/29/2025 9:02 PM EDT [facility] Blood PERIPHERAL BLOOD SPECIMEN / Unknown Venipuncture / Unknown 05/24/2025 6:58 PM EDT 05/24/2025 7:02 PM EDT us Rabia Velasco MD MICROBIOLOGY - GENERAL ORDERABLE S Final Result [facility] [address] [place] [address], [place] * (ABNORMAL) Coronavirus SARS-CoV-2, Influenza A/B and RSV (05/24/2025 10:28 AM EDT) Coronavirus SARS-CoV-2 Positive(A) Negative 05/24/2025 11:10 AM EDT [facility] Influenza A Negative Not Detected by PCR 05/24/2025 11:10 AM EDT [facility] Influenza B Negative Not Detected by PCR 05/24/2025 11:10 AM EDT [facility] RSV by PCR Negative Not Detected by PCR 05/24/2025 11:10 AM EDT [facility] Respiratory SWAB OF INTERNAL NOSE / Unknown Collection / Unknown 05/24/2025 10:28 AM EDT 05/24/2025 10:29 AM EDT Narrative [facility] - 05/24/2025 11:10 AM EDT Test performed by GeneXpert real-time PCR. us Rabia Velasco MD BODY FLUIDS AND STOOLS ORDERABLE S Final Result [facility] [address] [place] [address], [place] * IR G Tube Rescue (05/12/2025 5:00 PM EDT) Anatomical Region Laterality Modality X-Ray Angiograph y 05/14/2025 12:2 4 PM EDT Impressions 05/14/2025 12:22 PM EDT Technically successful gastrostomy tube rescue with placement of a new 16 [place] Islander (3 cm stoma length) gastrostomy tube. Recommend [...] draped in a sterile fashion. A 12 Solomon Islander Maharaj was identified in the gastrostomy tract. The balloon of the Maharaj was deflated. A stiff Glidewire was advanced through the Maharaj catheter into the stomach. The Maharaj was removed with gentle traction. A 16 Solomon Islander low- profile 3 cm stoma gastrostomy tube was advanced over the stiff Glidewire and into the stomach. The balloon was inflated with sterile water. The gastrostomy tube was aspirated revealing gastric contents. The gastrostomy tube was then flushed sterile water. Sterile dressings were applied. Patient tolerated the procedure well. No immediate postprocedural complications. FINDINGS: Existing gastrostomy tract with 12 Solomon Islander Maharaj. Placement of new 16 [place] Islander 3 cm low-profile gastrostomy tube with aspiration [...] draped in a sterile fashion. A 12 [place] Islander Maharaj was identifiedin the gastrostomy tract. The balloon of the Maharaj was deflated. A stiff Glidewire was advanced through the Foleycatheter into the stomach. The Maharaj was removed with gentle traction. A16 Solomon Islander low-profile 3 cm stoma gastrostomy tube was advanced over thestiff Glidewire and into the stomach. The balloon was inflated with sterile water. The gastrostomy tubewas aspirated revealing gastric contents. The gastrostomy tube was thenflushed sterile water. Sterile dressings were applied. Patient tolerated the procedure well. No immediate postproceduralcomplications. FINDINGS: Existing gastrostomy tract with 12 Solomon Islander Maharaj. Placement of new 16 Solomon Islander 3 cm low-profile gastrostomy tube withaspiration of [...] SARS-CoV-2 Negative Negative 05/07/2025 6:15 PM EDT [facility] Influenza A, PCR Negative Negative 05/07/20 6:15 PM EDT [facility] Influenza B, PCR Negative Negative 05/07/20 6:15 PM EDT [facility] RSV by PCR Negative Negative 05/07/2025 6:15 PM EDT [facility] Respiratory SWAB OF INTERNAL NOSE / Unknown Collection / Unknown 05/07/2025 12:20 PM EDT 05/07/2025 12:33 PM EDT Narrative [facility] - 05/07/2025 6:15 PM EDT Test performed with Alinity m Resp-4-Plex PCR assay, which has received emergency use authorization (EUA) by the U.S.Food and Drug Administration. Test performance verified by [facility] [address] [facility], [place], [place]. Dr. Dunia Adames MD. CLIA [id number], CAP [id number] . us Mohinder Johnson MD BODY FLUIDS AND STOOLS ORDERAB LES Final Result [facility] [address] [place] [address], [place] [phone] * EEG 24 Hour Continuous Video EEG (LTM) (05/01/2025 6:30 AM EDT) Anatomical Region Laterality Modality EEG Impressions 05/04/2025 9:47 AM EDT Abnormal EEG due to - intermittent background 5-7Hz theta slowing while awake Note on seizure risk / 1WVYGF0T scores: Interpretation of scores the risk of [...] <5%. Assessment of the Validity of the 2XKSCB4O Score for Inpatient Seizure Risk Prediction. DEB [...] EPILEPTIFORM DISCHARGES: None EVENTS: None ECG: Unremarkable 7WWOPM2Z score (on day 1 of EEG): 0 us Mildred Srinivasan MD NEUROLOGY ORDERABLES Final Resu lt * EEG 24 Hour Continuous Video EEG (LTM) (04/30/2025 2:04 PM EDT) Anatomical Region Laterality Modality EEG Impressions 05/01/2025 9:40 AM EDT Abnormal EEG due to - intermittent background 5-7Hz theta slowing while awake Note on seizure risk / 2JLPPG3A scores: Interpretation of scores the risk of [...] <5%. Assessment of the Validity of the 8LJACG4Q Score for Inpatient Seizure Risk Prediction. DEB [...] EPILEPTIFORM DISCHARGES: None EVENTS: None ECG: Unremarkable 5MZGIG6H score (on day 1 of EEG): 0 us Mildred Srinivasan MD NEUROLOGY ORDERABLES Final Resu lt * (ABNORMAL) Urinalysis with Sediment (04/30/2025 12:21 PM EDT) Color, Urine Yellow Yellow, Colorless, Straw 04/30/2025 12:40 PM EDT [facility] Clarity, Urine Hazy(A) Clear 04/30/2025 12:40 PM EDT [facility] pH, Urine 7.0 5.0 - 8.0 04/30/2025 12:40 PM EDT [facility] Protein, Urine Negative Negative 04/30/2025 12:40 PM EDT [facility] Glucose, Urine Negative Negative 04/30/2025 12:40 PM EDT [facility] Ketone, Urine Negative Negative 04/30/2025 12:40 PM EDT [facility] Bilirubin, Urine Negative Negative 04/30/2025 12:40 PM EDT [facility] Urobilinogen, Urine Normal 0.2-1.0 mg/dL 04/30/2025 12:40 PM EDT [facility] Blood, Urine Negative Negative 04/30/2025 12:40 PM EDT [facility] Leukocyte Esterase, Urine Negative Negative 04/30/2025 12:40 PM EDT [facility] Nitrite, Urine Negative Negative 04/30/2025 12:40 PM EDT [facility] Specific [place], Urine 1.016 1.001 - 1.050 04/30/2025 12:40 PM EDT [facility] White Blood Cells, Urine <1 0 - 5 /hpf 04/30/2025 12:40 PM EDT [facility] Red Blood Cells, Urine <1 0 - 2 /hpf 04/30/2025 12:40 PM EDT [facility] Urine MID-STREAM URINE SPECIMEN / Unknown Collection / Unknown 04/30/2025 12:21 PM EDT 04/30/2025 12:35 PM EDT us Mildred Srinivasan MD URINE ORDERABLES Final Result Performing Organization Address City/[facility]/ZIP Co de Phone Number [facility] [address] [place] [address], [place] * (ABNORMAL) D-dimer (04/30/2025 10:14 AM EDT) D-Dimer 605(H) <=500 ng/mL FEU 04/30/2025 10:37 AM EDT [facility] Comment:In ambulatory patien ts with low pre-test probability (Wells Criteria); D-Dimer <500 can be used to exclude venous thomboembolic disease. Blood PERIPHERAL BLOOD SPECIMEN / Unknown Venipuncture / Unknown 04/30/2025 10:14 AM EDT 04/30/2025 10:20 AM EDT us Mildred Srinivasan MD LAB BLOOD ORDERABLES Final Resu lt Performing Organization Address City/[facility]/ZIP Co de Phone Number [facility] [address] [place] [address], [place] * Lactate Dehydrogenase, Blood (04/30/2025 10:10 AM EDT) Lactate Dehydrogenase (LDH) 192 94 - 250 U/L 04/30/2025 11:07 AM EDT [facility] Blood PERIPHERAL BLOOD SPECIMEN / Unknown Venipuncture / Unknown 04/30/2025 10:10 AM EDT 04/30/2025 10:20 AM EDT us Mildred Srinivasan MD LAB BLOOD ORDERABLES Final Resu lt [facility] [address] [place] [address], [place] * (ABNORMAL) CK (Creatine Kinase) (04/30/2025 10:10 AM EDT) Only the most recent of2 resultswithin the time period is included. Creatine Kinase Total (CK) 35(L) 47 - 322 U/L 04/30/2025 11:07 AM EDT [facility] Blood PERIPHERAL BLOOD SPECIMEN / Unknown Venipuncture / Unknown 04/30/2025 10:10 AM EDT 04/30/2025 10:20 AM EDT us Mildred Srinivasan MD LAB BLOOD ORDERABLES Final Resu lt [facility] [address] [place] [address], [place] * EEG 24 Hour Continuous Video EEG (LTM) (04/24/2025 9:35 AM EDT) Anatomical Region Laterality Modality EEG Impressions 04/25/2025 12:15 PM EDT Normal EEG in the awake, drowsy, and asleep states. Note on seizure risk / 6SYZDL9E scores: Interpretation of scores the risk of [...] <5%. Assessment of the Validity of the 0KANME7T Score for Inpatient Seizure Risk Prediction. DEB [...] with rates of 80 to 100 bpm. 5IBKZU8R score (on day 1 of EEG): 1 [...] Ojeda MD Note on seizure risk / 8ZZYBB1D scores: Interpretation of scores the risk of [...] <5%. [Assessment of the Validity of the 5QJZUJ3Z Score for Inpatient Seizure Risk Prediction. DEB Neurol. 2019Jan 20;77(4):500-507.] Narrative 04/23/2025 2:52 PM EDT Table formatting from the original result was not included. CLINICAL NEUROPHYSIOLOGY LAB Department of Neurology [address] [place] [address] ; [phone] Name: Carter Raymundo : 1955 Age: 69 [...] discharges. SEIZURES: There were no electrographic seizures. CONCERT OR LECTURE HALL MANAGER: Showed a generally regular rhythm, often with rates of 80 to 100 bpm. EVENTS: There were no pushbutton activations. 3HYSGL2C score (Day1): 0 us Bonifacio Agudelo MD [...] Ojeda MD Note on seizure risk / 5WMZWL7T scores: Interpretation of scores the risk of [...] <5%. [Assessment of the Validity of the 8YCTWE2E Score for Inpatient Seizure Risk Prediction. DEB Neurol. 2020 Jan 1;77(4):500-507.] Narrative 04/23/2025 1:07 PM EDT Table formatting from the original result was not included. CLINICAL NEUROPHYSIOLOGY LAB Department of Neurology [facility] Abgiail Miller [address] [place] [address] ; [phone] Name: Carter Raymundo : 1955 Age: 69 [...] discharges. SEIZURES: There were no electrographic seizures. CONCERT OR LECTURE HALL MANAGER: Showed a generally regular rhythm, often with a rate of about 100 bpm. EVENTS: There were no pushbutton activations. 9FLMGX7S score (Day1): 0 us Bonifacio Agudelo MD NEUROLOGY ORDERABLES Final Resul t * Prolactin (04/22/2025 12:02 PM EDT) Pathologist [facility] Prolactin, Blood 14.0 4.0 - 15.0 ng/mL 04/22/2025 3:28 PM EDT [facility] Comment:Measured by Desiree El ecsys (ECLIA) version 2 which is largely unaffected by macroprolactin. Patient results determined by different manufacturers or methods may not be comparable. Blood PERIPHERAL BLOOD SPECIMEN / Unknown Venipuncture / Unknown 04/22/2025 12:02 PM EDT 04/22/2025 12:23 PM EDT us Bonifacio Agudelo MD LAB BLOOD ORDERABLES Final Resul t [facility] [address] [place] [address], [place] * Lactic Acid (04/22/2025 11:21 AM EDT) Pathologist [facility] Lactic Acid 2.0 0.5 - 2.0 mmol/L 04/22/2025 11:42 AM EDT [facility] Blood Venipuncture / Unknown 04/22/2025 11:21 AM EDT 04/22/2025 11:24 AM EDT Bonifacio Agudelo MD LAB BLOOD ORDERABLES Final Resul t [facility] [address] [place] [address], * (ABNORMAL) Lipid Panel (01/20/2023 8:26 AM EDT) Cholesterol 157 <=199 mg/dL 01/20/2023 1:09 PM EDT [facility] Triglycerides 164(H) <150 mg/dL 01/20/2023 1:09 PM EDT [facility] HDL Cholesterol 49 >=40 mg/dL 3 1:09 PM EDT [facility] Risk Factor 3.2 <5.0 01/20/2023 1:09 PM EDT [facility] LDL Cholesterol 75 <100 mg/dL 3 1:09 PM EDT [facility] Blood BLOOD / Unknown 01/20/2023 8 :26 AM EDT 01/20/2023 8:45 AM EDT Narrative CONVERSION FROM [facility] - 01/20/2023 1:09 PM EDT Release to patient->Immediate Chuck Bell MD LAB BLOOD ORDERABLES Final Result CONVERSION FROM [facility] [address] [place] [address] from Last 3 Months or Most Recently Relevant to Health Maintenance Insurance MEDICARE MEDEX MEDICARE MEDEX Advance Directives Documents on File Type Date Recorded Patient Bilingual Receptionist Osmin nathan Health Care Proxy 04/17/2025 3:36 [...] Agents on File Name Relationship Healthcare Agent [facility] [facility] Communication Delvin Adan Health Care Agent Care Teams Retail Interior Designer Relationship Specialty Start Date End Date Skye De Leon MD [address] [place] [id number] PCP - General Internal Medicine 12/18/22
--- OUTSIDE RECORDS SUMMARY | 2025-07-22 14:12 | XMS_ITS | Encounter Summary ---
Author Organization [facility] Address [address] [place] [address] Care Team Providers Care Tours Hostess Name Role Phone Malcolm Edmondson Primary Care Provider [phone] System, Provider Not In Primary Care Provider Un available Kalyan, Johanna Alonso Primary Care Provider Unavai lable Kalyan, Johanna Alonso Primary Care Provider Unavai lable Unknown, Provider Primary Care Provider Unava ilable None, Pcp Primary Care Provider Unavailabl Johanna Gallegos MD Primary Care Provider [phone] None, Pcp Primary Care Provider Unavailabl Skye Madison MD Primary Care Provider [phone] Kilo Valera Jr. Primary Care Provid er Skye De Leon MD Primary Care Provider [phone] Encounter Details Date Type Department Care Team (Late st Contact Info) Description 03/08/2015 Orders Only [facility] - [address] [place] [id number] Carter Rhodes [address] [place] [address] Social History Tobacco Use Types [...] documented as of this encounter Care Teams Tours Hostess Relationship Specialty Start Date End Date Malcolm Edmondson PCP - General 08/31/14 12/31/19 System, Provider Not In PCP - General 01/01/20 04/13/20 Johanna Biggs [address] [place] [address] [place] [address] PCP - General 04/14/20 10/27/20 Johanna Biggs [place] [address] [place], [place] [address] PCP - General 10/28/20 01/03/21 Unknown, Provider, [address] [place] [id number] PCP - General 01/04/21 03/10/21 None, Pcp, [address] [place] [id number] PCP - General 03/11/21 11/22/21 Johanna Biggs MD [address] [place] [id number] PCP - General Family Practice 11/23/21 05/29/22 None, MD Rere [address] [place] [id number] PCP - General 05/30/22 05/31/22 Skye De Leon MD [address] [place] [id number] PCP - General Internal Medicine 06/01/22 11/08/22 Kilo Valera Jr. [address] [place] [id number] PCP - General 11/09/22 12/17/22 Skye De Leon MD [address] [place] [id number] PCP - General Internal Medicine 12/18/22 documented as of this encounter
--- OUTSIDE RECORDS SUMMARY | 2025-07-22 14:12 | XMS_ITS | Encounter Summary ---
Author Organization [facility] Address [address] [place] [address] Care Team Providers Care Cafeteria Attendant Name Role Phone Malcolm Edmondson Primary Care Provider [phone] System, Provider Not In Primary Care Provider Un available Kalyan, Johanan Alonso Primary Care Provider Unavai lable Kalyan, Johanna Alonso Primary Care Provider Unavai lable Unknown, Provider Primary Care Provider Unava ilable None, Pcp Primary Care Provider Unavailabl e Kalyan, Johanna Allen MD Primary Care Provider [phone] None, Pcp Primary Care Provider Unavailabl e Skye eD Leon MD Primary Care Provider [phone] Kilo Valera Jr. Primary Care Provid er Skye De Leon MD Primary Care Provider [phone] Encounter Details Date Type Department Care Team (Late st Contact Info) Description 06/09/2015 Orders Only [facility] - [address] [place] [id number] Param Rhodes MD [address] [place] [address] Schizoaffective disorder, unspecified condition (Primary Dx) Social [...] Creatinine with GFRE (04/05/2016 5:48 PM EDT) Creatinine, Blood 1.6(H) 0.6 - 1.3 mg/dL 04/05/2016 7:29 PM EDT [facility] GFR Historical (MDRD) 54(L) >=60 mL/min/BSA 04/05/2016 7:29 PM EDT [facility] Estimated GFR (MDRD) 45(L) >=60 mL/min/BSA 04/05/2016 7:29 PM T [facility] GFR Estimate Comment 04/05/2016 7:29 PM [facility] Comment: Chronic Kidney Disease(CKD) Stages based [...] ORDERABLES Final Re sult Performing Organization Address [facility] Co de Phone Number [address] [address] * Hepatic Function Panel (04/05/2016 5:48 PM EDT) Total Protein 6.4 6.2 - 8.2 g/dL 04/05/2016 7:29 PM EDT [facility] Albumin, Blood 3.6 3.4 - 4.9 g/dL 04/05/2016 7:29 PM EDT [facility] Total Bilirubin 0.4 0.2 - 1.3 mg/dL 04/05/2016 7:29 PM EDT [facility] Direct Bilirubin 0.1 0.1 - 0.5 mg/dL 04/05/2016 7:29 PM EDT [facility] Alkaline Phosphatase 91 30 - 115 IU/L 04/05/2016 7:29 PM EDT [facility] AST (SGOT) 14 11 - 40 IU/L 04/05/2016 7:29 PM EDT [facility] ALT (SGPT) 19 7 - 40 IU/L 04/05/2016 7:29 PM EDT [facility] Blood specimen (specimen) Venipuncture / Unknown 04/05/2016 5:48 PM EDT 04/05/2016 6:12 PM EDT Param Rhodes MD LAB BLOOD ORDERABLES Final Re sult Performing Organization Address [facility]/ZIP Co de Phone Number [address] [address] * Valproic Acid Level (04/05/2016 5:48 PM EDT) Valproic Acid Level, Blood 59 50 - 100 ug/mL 04/05/2016 6:57 PM EDT [facility] Blood specimen (specimen) Venipuncture / Unknown 04/05/2016 5:48 PM EDT 04/05/2016 6:10 PM EDT Param Rhodes MD LAB BLOOD ORDERABLES Final Re sult Performing Organization Address [facility] de Phone Number [address] [address] * (ABNORMAL) Creatinine with GFRE (03/10/2016 9:04 AM EDT) Creatinine, Blood 1.6(H) 0.6 - 1.3 mg/dL 03/10/2016 10:03 AM EDT [facility] GFR Historical (MDRD) 54(L) >=60 mL/min/BSA 03/10/2016 10:03 AM EDT [facility] Estimated GFR (MDRD) 45(L) >=60 mL/min/BSA 03/10/2016 10:03 AM T [facility] GFR Estimate Comment 03/10/2016 10:03 AM T [facility] Comment: Chronic Kidney Disease(CKD) Stages based [...] ORDERABLES Final Re sult Performing Organization Address [facility] Co de Phone Number [address] [address] * Hepatic Function Panel (03/10/2016 9:04 AM EDT) Total Protein 6.6 6.2 - 8.2 g/dL 03/10/2016 10:03 AM EDT [facility] Albumin, Blood 3.7 3.4 - 4.9 g/dL 03/10/2016 10:03 AM EDT [facility] Total Bilirubin 0.4 0.2 - 1.3 mg/dL 03/10/2016 10:03 AM EDT [facility] Direct Bilirubin 0.1 0.1 - 0.5 mg/dL 03/10/2016 10:03 AM EDT [facility] Alkaline Phosphatase 103 30 - 115 IU/L 03/10/2016 10:03 AM EDT [facility] AST (SGOT) 15 11 - 40 IU/L 03/10/2016 10:03 AM EDT [facility] ALT (SGPT) 20 7 - 40 IU/L 03/10/2016 10:03 AM EDT [facility] Blood specimen (specimen) Venipuncture / Unknown 03/10/2016 9:04 AM EDT 03/10/2016 9:27 AM EDT Param Rhodes MD LAB BLOOD ORDERABLES Final Re sult Performing Organization Address [facility]/ZIP Co de Phone Number [address] [address] * Valproic Acid Level (03/10/2016 9:04 AM EDT) Valproic Acid Level, Blood 72 50 - 100 ug/mL 03/10/2016 9:53 AM EDT [facility] Blood specimen (specimen) Venipuncture / Unknown 03/10/2016 9:04 AM EDT 03/10/2016 9:27 AM EDT Param Rhodes MD LAB BLOOD ORDERABLES Final Re sult Performing Organization Address City/[facility]/ZIP Co de Phone Number [address] [address] * (ABNORMAL) Creatinine with GFRE (02/17/2016 5:36 PM EDT) Creatinine, Blood 1.6(H) 0.6 - 1.3 mg/dL 02/17/2016 8:24 PM EDT [facility] GFR Historical (MDRD) 54(L) >=60 mL/min/BSA 02/17/2016 8:24 PM EDT [facility] Estimated GFR (MDRD) 45(L) >=60 mL/min/BSA 02/17/2016 8:24 PM EDT [facility] GFR Estimate Comment 02/17/2016 8:24 PM EDT [facility] Comment: Chronic Kidney Disease(CKD) Stages based on estimated GFR: GFR ml/min/1.73m^2 Stage of CKD 30-59 3 15-29 4 <15(or dialysis) 5 The GFR estimate is not accurate for: a) Acute renal failure. b) Dosage calculations for Pharmacy drugs. Blood specimen (specimen) Venipuncture / Unknown 02/17/2016 5:36 PM EDT 02/17/2016 5:54 PM EDT us Param Rhodes MD LAB BLOOD ORDERABLES Final Re sult [address] [address] * (ABNORMAL) Hepatic Function Panel (02/17/2016 5:36 PM EDT) Total Protein 6.7 6.2 - 8.2 g/dL 02/17/2016 8:24 PM EDT [facility] Albumin, Blood 3.5 3.4 - 4.9 g/dL 02/17/2016 8:24 PM EDT [facility] Total Bilirubin 0.3 0.2 - 1.3 mg/dL 02/17/2016 8:24 PM EDT [facility] Direct Bilirubin <0.1(L) 0.1 - 0.5 mg/dL 02/17/2016 8:24 PM EDT [facility] Alkaline Phosphatase 95 30 - 115 IU/L 02/17/2016 8:24 PM EDT [facility] AST (SGOT) 15 11 - 40 IU/L 02/17/2016 8:24 PM EDT [facility] ALT (SGPT) 19 7 - 40 IU/L 02/17/2016 8:24 PM EDT [facility] Blood specimen (specimen) Venipuncture / Unknown 02/17/2016 5:36 PM EDT 02/17/2016 5:54 PM EDT Param Rhodes MD LAB BLOOD ORDERABLES Final Re sult Performing Organization Address [facility]/ZIP Co de Phone Number [address] [address] * Valproic Acid Level (02/17/2016 5:36 PM EDT) Valproic Acid Level, Blood 56 50 - 100 ug/mL 02/17/2016 7:51 PM EDT [facility] Blood specimen (specimen) Venipuncture / Unknown 02/17/2016 5:36 PM EDT 02/17/2016 5:54 PM EDT Param Rhodes MD LAB BLOOD ORDERABLES Final Re sult Performing Organization Address [facility] de Phone Number [address] [address] * (ABNORMAL) Creatinine with GFRE (01/19/2016 5:37 PM EDT) Creatinine, Blood 1.5(H) 0.6 - 1.3 mg/dL 01/19/2016 7:39 PM EDT [facility] GFR Historical (MDRD) 58(L) >=60 mL/min/BSA 01/19/2016 7:39 PM EDT [facility] Estimated GFR (MDRD) 48(L) >=60 mL/min/BSA 01/19/2016 7:39 PM EDT [facility] GFR Estimate Comment 01/19/2016 7:39 PM T [facility] Comment: Chronic Kidney Disease(CKD) Stages based [...] ORDERABLES Final Re sult Performing Organization Address [facility] de Phone Number [address] [address] * Hepatic Function Panel (01/19/2016 5:37 PM EDT) Total Protein 6.7 6.2 - 8.2 g/dL 01/19/2016 7:39 PM EDT [facility] Albumin, Blood 3.7 3.4 - 4.9 g/dL 01/19/2016 7:39 PM EDT [facility] Total Bilirubin 0.4 0.2 - 1.3 mg/dL 01/19/2016 7:39 PM EDT [facility] Direct Bilirubin 0.1 0.1 - 0.5 mg/dL 01/19/2016 7:39 PM EDT [facility] Alkaline Phosphatase 90 30 - 115 IU/L 01/19/2016 7:39 PM EDT [facility] AST (SGOT) 17 11 - 40 IU/L 01/19/2016 7:39 PM EDT [facility] ALT (SGPT) 22 7 - 40 IU/L 01/19/2016 7:39 PM EDT [facility] Blood specimen (specimen) Venipuncture / Unknown 01/19/2016 5:37 PM EDT 01/19/2016 6:07 PM EDT Param Rhodes MD LAB BLOOD ORDERABLES Final Re sult Performing Organization Address [facility] Co de Phone Number [address] [address] * Valproic Acid Level (01/19/2016 5:37 PM EDT) Valproic Acid Level, Blood 54 50 - 100 ug/mL 01/19/2016 7:29 PM EDT [facility] Blood specimen (specimen) Venipuncture / Unknown 01/19/2016 5:37 PM EDT 01/19/2016 6:07 PM EDT Param Rhodes MD LAB BLOOD ORDERABLES Final Re sult Performing Organization Address [facility] [place] [address] * (ABNORMAL) Creatinine with GFRE (12/22/2015 5:40 PM EST) Creatinine, Blood 1.6(H) 0.6 - 1.3 mg/dL 12/22/2015 7:42 PM EST [facility] GFR Historical (MDRD) 54(L) >=60 mL/min/BSA 12/22/2015 7:42 PM EST [facility] Estimated GFR (MDRD) 45(L) >=60 mL/min/BSA 12/22/2015 7:42 PM EST [facility] Blood specimen (specimen) Venipuncture / Unknown 12/22/2015 5:40 PM EST 12/22/2015 6:01 PM EST [facility] - 12/22/2015 7:42 PM EST Chronic Kidney Disease(CKD) Stages based on estimated GFR: GFR ml/min/1.73m^2 Stage of CKD 30-59 3 15-29 4 <15(or dialysis) 5 The GFR estimate is not accurate for: a) Acute renal failure. b) Dosage calculations for Pharmacy drugs. Param Rhodes MD LAB BLOOD ORDERABLES Final Re sult Performing Organization Address [facility] Co de Phone Number [address] [address] * Hepatic Function Panel (12/22/2015 5:40 PM EST) Total Protein 6.6 6.2 - 8.2 g/dL 12/22/2015 7:42 PM [facility] Albumin, Blood 3.7 3.4 - 4.9 g/dL 12/22/2015 7:42 PM [facility] Total Bilirubin 0.4 0.2 - 1.3 mg/dL 12/22/2015 7:42 PM [facility] Direct Bilirubin 0.2 0.1 - 0.5 mg/dL 12/22/2015 7:42 PM [facility] Alkaline Phosphatase 88 30 - 115 IU/L 12/22/2015 7:42 PM [facility] AST (SGOT) 19 11 - 40 IU/L 12/22/2015 7:42 PM [facility] ALT (SGPT) 26 7 - 40 IU/L 12/22/2015 7:42 PM [facility] Blood specimen (specimen) Venipuncture / Unknown 12/22/2015 5:40 PM EST 12/22/2015 6:01 PM EST Param Rhodes MD LAB BLOOD ORDERABLES Final Re sult Performing Organization Address [facility]/ZIP Co de Phone Number [address] [address] * Valproic Acid Level (12/22/2015 5:40 PM EST) Valproic Acid Level, Blood 53 50 - 100 ug/mL 12/22/2015 7:12 PM [facility] Blood specimen (specimen) Venipuncture / Unknown 12/22/2015 5:40 PM EST 12/22/2015 6:01 PM EST Param Rhodes MD LAB BLOOD ORDERABLES Final Re sult Performing Organization Address [facility] Co de Phone Number [address] [address] * (ABNORMAL) Creatinine with GFRE (11/17/2015 5:39 PM EST) Creatinine, Blood 1.6(H) 0.6 - 1.3 mg/dL 11/17/2015 7:30 PM [facility] GFR Historical (MDRD) 54(L) >=60 mL/min/BSA 11/17/2015 7:30 PM [facility] Estimated GFR (MDRD) 45(L) >=60 mL/min/BSA 11/17/2015 7:30 PM [facility] Blood specimen (specimen) Venipuncture / Unknown 11/17/2015 5:39 PM EST 11/17/2015 6:17 PM EST Narrative [facility] - 11/17/2015 7:30 PM EST Chronic Kidney Disease(CKD) Stages based on estimated GFR: GFR ml/min/1.73m^2 Stage of CKD 30-59 3 15-29 4 <15(or dialysis) 5 The GFR estimate is not accurate for: a) Acute renal failure. b) Dosage calculations for Pharmacy drugs. Param Rhodes MD LAB BLOOD ORDERABLES Final Re sult Performing Organization Address [facility] Co de Phone Number [address] [address] * Hepatic Function Panel (11/17/2015 5:39 PM EST) Pathologist [facility] Total Protein 6.6 6.2 - 8.2 g/dL 11/17/2015 7:30 PM EST [facility] Albumin, Blood 3.7 3.4 - 4.9 g/dL 11/17/2015 7:30 PM [facility] Total Bilirubin 0.2 0.2 - 1.3 mg/dL 11/17/2015 7:30 PM [facility] Direct Bilirubin 0.1 0.1 - 0.5 mg/dL 11/17/2015 7:30 PM [facility] Alkaline Phosphatase 92 30 - 115 IU/L 11/17/2015 7:30 PM [facility] AST (SGOT) 16 11 - 40 IU/L 11/17/2015 7:30 PM [facility] ALT (SGPT) 19 7 - 40 IU/L 11/17/2015 7:30 PM [facility] Blood specimen (specimen) Venipuncture / Unknown 11/17/2015 5:39 PM EST 11/17/2015 6:17 PM EST Param Rhodes MD LAB BLOOD ORDERABLES Final Re sult Performing Organization Address [facility]/ZIP Co de Phone Number [address] [address] * Valproic Acid Level (11/17/2015 5:39 PM EST) Valproic Acid Level, Blood 66 50 - 100 ug/mL 11/17/2015 7:31 PM EST [facility] Blood specimen (specimen) Venipuncture / Unknown 11/17/2015 5:39 PM EST 11/17/2015 6:17 PM EST Param Rhodes MD LAB BLOOD ORDERABLES Final Re sult Performing Organization Address [facility] de Phone Number [address] [address] * (ABNORMAL) Creatinine with GFRE (10/07/2015 5:47 PM EST) Creatinine, Blood 1.5(H) 0.6 - 1.3 mg/dL 10/07/2015 7:22 PM EST [facility] GFR Historical (MDRD) 58(L) >=60 mL/min/BSA 10/07/2015 7:22 PM EST [facility] Estimated GFR (MDRD) 48(L) >=60 mL/min/BSA 10/07/2015 7:22 PM EST [facility] Blood specimen (specimen) Venipuncture / Unknown 10/07/2015 5:47 PM EST 10/07/2015 6:14 PM EST Narrative [facility] - 10/07/2015 7:22 PM EST Chronic Kidney Disease(CKD) Stages based on estimated GFR: GFR ml/min/1.73m^2 Stage of CKD 30-59 3 15-29 4 <15(or dialysis) 5 The GFR estimate is not accurate for: a) Acute renal failure. b) Dosage calculations for Pharmacy drugs. Param Rhodes MD LAB BLOOD ORDERABLES Final Re sult Performing Organization Address [facility] de Phone Number [address] [address] * Hepatic Function Panel (10/07/2015 5:47 PM EST) Pathologist [facility] Total Protein 6.8 6.2 - 8.2 g/dL 10/07/2015 7:22 PM EST [facility] Albumin, Blood 3.8 3.4 - 4.9 g/dL 10/07/2015 7:22 PM [facility] Total Bilirubin 0.4 0.2 - 1.3 mg/dL 10/07/2015 7:22 PM [facility] Direct Bilirubin 0.1 0.1 - 0.5 mg/dL 10/07/2015 7:22 PM [facility] Alkaline Phosphatase 108 30 - 115 IU/L 10/07/2015 7:22 PM [facility] AST (SGOT) 15 11 - 40 IU/L 10/07/2015 7:22 PM [facility] ALT (SGPT) 35 7 - 40 IU/L 10/07/2015 7:22 PM [facility] Blood specimen (specimen) Venipuncture / Unknown 10/07/2015 5:47 PM EST 10/07/2015 6:14 PM EST Param Rhodes MD LAB BLOOD ORDERABLES Final Re sult Performing Organization Address City/[facility]/ZIP Co de Phone Number [address] [address] * Valproic Acid Level (10/07/2015 5:47 PM EST) [facility] Valproic Acid Level, Blood 69 50 - 100 ug/mL 10/07/2015 7:03 PM EST [facility] Blood specimen (specimen) Venipuncture / Unknown 10/07/2015 5:47 PM EST 10/07/2015 6:13 PM EST Param Rhodes MD LAB BLOOD ORDERABLES Final Re sult Performing Organization Address [facility]/ZIP Co de Phone Number [address] [address] * (ABNORMAL) Creatinine with GFRE (09/06/2015 5:41 PM EST) [facility] Creatinine, Blood 1.5(H) 0.6 - 1.3 mg/dL 09/06/2015 8:43 PM [facility] GFR Historical (MDRD) 58(L) >=60 mL/min/BSA 09/06/2015 8:43 PM [facility] Estimated GFR (MDRD) 48(L) >=60 mL/min/BSA 09/06/2015 8:43 PM [facility] Blood specimen (specimen) Venipuncture / Unknown 09/06/2015 5:41 PM EST 09/06/2015 7:48 PM EST [facility] - 09/06/2015 8:43 PM EST Chronic Kidney Disease(CKD) Stages based on estimated GFR: GFR ml/min/1.73m^2 Stage of CKD 30-59 3 15-29 4 <15(or dialysis) 5 The GFR estimate is not accurate for: a) Acute renal failure. b) Dosage calculations for Pharmacy drugs. Param Rhodes MD LAB BLOOD ORDERABLES Final Re sult [place] [id number] * Hepatic Function Panel (09/06/2015 5:41 PM EST) Total Protein 6.6 6.2 - 8.2 g/dL 09/06/2015 8:43 PM [facility] Albumin, Blood 3.6 3.4 - 4.9 g/dL 09/06/2015 8:43 PM [facility] Total Bilirubin 0.4 0.2 - 1.3 mg/dL 09/06/2015 8:43 PM [facility] Direct Bilirubin 0.1 0.1 - 0.5 mg/dL 09/06/2015 8:43 PM [facility] Alkaline Phosphatase 90 30 - 115 IU/L 09/06/2015 8:43 PM [facility] AST (SGOT) 16 11 - 40 IU/L 09/06/2015 8:43 PM [facility] ALT (SGPT) 21 7 - 40 IU/L 09/06/2015 8:43 PM [facility] Blood specimen (specimen) Venipuncture / Unknown 09/06/2015 5:41 PM EST 09/06/2015 7:48 PM EST Param Rhodes MD LAB BLOOD ORDERABLES Final Re sult Performing Organization Address City/[facility]/ZIP Co de Phone Number [address] [address] * Valproic Acid Level (09/06/2015 5:41 PM EST) Valproic Acid Level, Blood 68 50 - 100 ug/mL 09/06/2015 8:24 PM EST [facility] Blood specimen (specimen) Venipuncture / Unknown 09/06/2015 5:41 PM EST 09/06/2015 7:48 PM EST Param Rhodes MD LAB BLOOD ORDERABLES Final Re sult Performing Organization Address [facility] de Phone Number [address] [address] * (ABNORMAL) Creatinine with GFRE (08/04/2015 5:35 PM EDT) Creatinine, Blood 1.7(H) 0.6 - 1.3 mg/dL 08/04/2015 6:30 PM EDT [facility] GFR Historical (MDRD) 50(L) >=60 mL/min/BSA 08/04/2015 6:30 PM EDT [facility] Estimated GFR (MDRD) 42(L) >=60 mL/min/BSA 08/04/2015 6:30 PM EDT [facility] Blood specimen (specimen) Venipuncture / Unknown 08/04/2015 5:35 PM EDT 08/04/2015 6:17 PM EDT [facility] - 08/04/2015 6:30 PM EDT Chronic Kidney Disease(CKD) Stages based on estimated GFR: GFR ml/min/1.73m^2 Stage of CKD 30-59 3 15-29 4 <15(or dialysis) 5 The GFR estimate is not accurate for: a) Acute renal failure. b) Dosage calculations for Pharmacy drugs. Param Rhodes MD LAB BLOOD ORDERABLES Final Re sult Performing Organization Address [facility] de Phone Number [address] [address] * Hepatic Function Panel (08/04/2015 5:35 PM EDT) Total Protein 6.9 6.2 - 8.2 g/dL 08/04/2015 6:30 PM EDT [facility] Albumin, Blood 3.9 3.4 - 4.9 g/dL 08/04/2015 6:30 PM EDT [facility] Total Bilirubin 0.5 0.2 - 1.3 mg/dL 08/04/2015 6:30 PM EDT [facility] Direct Bilirubin <0.1 <0.3 mg/dL 08/04/2015 6:30 PM EDT [facility] Alkaline Phosphatase 89 30 - 115 IU/L 08/04/2015 6:30 PM EDT [facility] AST (SGOT) 18 11 - 40 IU/L 08/04/2015 6:30 PM EDT [facility] ALT (SGPT) 23 7 - 40 IU/L 08/04/2015 6:30 PM EDT [facility] Blood specimen (specimen) Venipuncture / Unknown 08/04/2015 5:35 PM EDT 08/04/2015 6:17 PM EDT Param Rhodes MD LAB BLOOD ORDERABLES Final Re sult Performing Organization Address [facility] Co de Phone Number [address] [address] * Valproic Acid Level (08/04/2015 5:35 PM EDT) Valproic Acid Level, Blood 52 50 - 100 ug/mL 08/04/2015 6:44 PM EDT [facility] Blood specimen (specimen) Venipuncture / Unknown 08/04/2015 5:35 PM EDT 08/04/2015 6:17 PM EDT Param Rhodes MD LAB BLOOD ORDERABLES Final Re sult Performing Organization Address [facility] de Phone Number [address] [address] * (ABNORMAL) Creatinine with GFRE (07/07/2015 5:46 PM EDT) Creatinine, Blood 1.7(H) 0.6 - 1.3 mg/dL 07/07/2015 6:09 PM EDT [facility] GFR Historical (MDRD) 50(L) >=60 mL/min/BSA 07/07/2015 6:09 PM EDT [facility] Estimated GFR (MDRD) 42(L) >=60 mL/min/BSA 07/07/2015 6:09 PM EDT [facility] Blood specimen (specimen) Venipuncture / Unknown 07/07/2015 5:46 PM EDT 07/07/2015 5:47 PM EDT Narrative [facility] - 07/07/2015 6:09 PM EDT Chronic Kidney Disease(CKD) Stages based on estimated GFR: GFR ml/min/1.73m^2 Stage of CKD 30-59 3 15-29 4 <15(or dialysis) 5 The GFR estimate is not accurate for: a) Acute renal failure. b) Dosage calculations for Pharmacy drugs. Param Rhodes MD LAB BLOOD ORDERABLES Final Re sult Performing Organization Address [facility] Co de Phone Number [address] [address] * Hepatic Function Panel (07/07/2015 5:46 PM EDT) Total Protein 7.1 6.2 - 8.2 g/dL 07/07/2015 6:09 PM EDT [facility] Albumin, Blood 4.0 3.4 - 4.9 g/dL 07/07/2015 6:09 PM EDT [facility] Total Bilirubin 0.5 0.2 - 1.3 mg/dL 07/07/2015 6:09 PM EDT [facility] Direct Bilirubin 0.1 <0.3 mg/dL 07/07/2015 6:09 PM EDT [facility] Alkaline Phosphatase 89 30 - 115 IU/L 07/07/2015 6:09 PM EDT [facility] AST (SGOT) 18 11 - 40 IU/L 07/07/2015 6:09 PM EDT [facility] ALT (SGPT) 25 7 - 40 IU/L 07/07/2015 6:09 PM EDT [facility] Blood specimen (specimen) Venipuncture / Unknown 07/07/2015 5:46 PM EDT 07/07/2015 5:47 PM EDT Param Rhodes MD LAB BLOOD ORDERABLES Final Re sult Performing Organization Address [facility] Co de Phone Number [address] [address] * Valproic Acid Level (07/07/2015 5:46 PM EDT) Valproic Acid Level, Blood 61 50 - 100 ug/mL 07/07/2015 6:09 PM EDT [facility] Blood specimen (specimen) Venipuncture / Unknown 07/07/2015 5:46 PM EDT 07/07/2015 5:47 PM EDT Param Rhodes MD LAB BLOOD ORDERABLES Final Re sult Performing Organization Address City/[facility]/ZIP Co de Phone Number [address] [address] * CBC and Differential (06/09/2015 5:37 PM EDT) WBC 9.46 4.40 - 11.30 K/uL 06/09/2015 7:30 PM EDT [facility] RBC 5.12 4.5 - 5.9 M/uL 06/09/2015 7:30 PM EDT [facility] Hemoglobin 16.5 13.8 - 17.4 g/dL 06/09/2015 7:30 PM EDT [facility] Hematocrit 48.5 41.0 - 51.0 % 06/[facility]2015 [facility] MCV 95 80 - 96 fL 06/09/2015 7:30 PM EDT [facility] Platelet Count 218 150 - 450 K/uL 06/09/2015 7:30 PM EDT [facility] RDW 13.6 11.6 - 14.6 % 06/09/2015 7:30 PM EDT [facility] Neutrophil 65 % 06/09/2015 7:30 PM EDT [facility] Lymphocyte 26 % 06/09/2015 7:30 PM EDT [facility] Monocyte 8 % 06/09/2015 7:30 PM EDT [facility] Eosinophil 0 % 06/09/2015 7:30 PM EDT [facility] Basophil 0 % 06/09/2015 7:30 PM EDT [facility] Absolute Neutrophil Count 6.17 1.40 - 6.60 K/uL 06/09/2015 7:30 PM EDT [facility] Absolute Lymphocyte Count 2.45 1.20 - 3.50 K/uL 06/09/2015 7:30 PM EDT [facility] Absolute Monocyte Count 0.80 0.00 - 1.00 K/uL 06/09/2015 7[facility] Eosinophil Count 0.00 0.00 - 0.40 K/uL [facility] Basophil Count 0.04 0.00 - 0.20 K/uL 06/09/2015 7:30 PM EDT [facility] 06[facility] Blood specimen (specimen) Venipuncture / Unknown 06/09/2015 5:37 PM EDT 06/09/2015 5:53 PM EDT us Param Rhodes MD LAB BLOOD ORDERABLES Final Re sult [address] [address] * (ABNORMAL) Creatinine with GFRE (06/09/2015 5:37 PM EDT) Creatinine, Blood 1.7(H) 0.6 - 1.3 mg/dL 06/09/2015 7:45 PM EDT [facility] GFR Historical (MDRD) 50(L) >=60 mL/min/BSA 06/09/2015 7:45 PM EDT [facility] Estimated GFR (MDRD) 42(L) >=60 mL/min/BSA 06/09/2015 7:45 PM EDT [facility] Blood specimen (specimen) Venipuncture / Unknown 06/09/2015 5:37 PM EDT 06/09/2015 5:53 PM EDT [facility] LABORATORY - 06/09/2015 7:45 PM EDT Chronic Kidney Disease(CKD) Stages based on estimated GFR: GFR ml/min/1.73m^2 Stage of CKD 30-59 3 15-29 4 <15(or dialysis) 5 The GFR estimate is not accurate for: a) Acute renal failure. b) Dosage calculations for Pharmacy drugs. Param Rhodes MD LAB BLOOD ORDERABLES Final Re sult [place] [id number] * Hepatic Function Panel (06/09/2015 5:37 PM EDT) Total Protein 7.1 6.2 - 8.2 g/dL 06/09/2015 7:45 PM EDT [facility] Albumin, Blood 3.8 3.4 - 4.9 g/dL 06/09/2015 7:45 PM EDT [facility] Total Bilirubin 0.5 0.2 - 1.3 mg/dL 06/09/2015 7:45 PM EDT [facility] Direct Bilirubin 0.2 0.1 - 0.5 mg/dL 06/09/2015 7:45 PM T [facility] Alkaline Phosphatase 94 30 - 115 IU/L 06/09/2015 7:45 PM T [facility] AST (SGOT) 16 11 - 40 IU/L 06/09/2015 7:45 PM EDT [facility] ALT (SGPT) 21 7 - 40 IU/L 06/09/2015 7:45 PM EDT [facility] Blood specimen (specimen) Venipuncture / Unknown 06/09/2015 5:37 PM EDT 06/09/2015 5:53 PM EDT Param Rhodes MD LAB BLOOD ORDERABLES Final Re sult Performing Organization Address [facility] Co de Phone Number [address] [address] * Valproic Acid Level (06/09/2015 5:37 PM EDT) Valproic Acid Level, Blood 60 50 - 100 ug/mL 06/09/2015 6:37 PM EDT [facility] Blood specimen (specimen) Venipuncture / Unknown 06/09/2015 5:37 PM EDT 06/09/2015 5:53 PM EDT Param Rhodes MD LAB BLOOD ORDERABLES Final Re sult Performing Organization Address [facility] Co de Phone Number [address] [address] documented in this encounter Visit Diagnoses Diagnosis [...] documented as of this encounter Care Teams Cafeteria Attendant Relationship Specialty Start Date End Date Malcolm Edmondson PCP - General 08/31/14 12/31/19 System, Provider Not In PCP - General 01/01/20 04/13/20 Johanna Biggs [address] [place] [address] Dr Spain [address] [place] [address] PCP - General 04/14/20 10/27/20 Johanna Biggs [address] [place] [address] Dr Spain [address] [place] [address] PCP - General 10/28/20 01/03/21 Unknown, Provider, [address] [place] [address] PCP - General 01/04/21 03/10/21 None, Pcp, [address] [place] [address] PCP - General 03/11/21 11/22/21 Johanna Biggs MD [address] [place] [address] PCP - General Family Practice 11/23/21 05/29/22 None, PcpMD [address] [place] [address] PCP - General 05/30/22 05/31/22 Skye De Leon MD [address] [place] [address] PCP - General Internal Medicine 06/01/22 11/08/22 Kilo Valera Jr. [address] [place] [address] PCP - General 11/09/22 12/17/22 Skye De Leon MD [address] [place] [address] PCP - General Internal Medicine 12/18/22 documented as of this encounter
--- OUTSIDE RECORDS SUMMARY | 2025-07-22 14:12 | XMS_ITS | Encounter Summary ---
Author Organization [facility] Address [address] [place] [address] Care Team Providers Care Pen Ruler Operator Name Role Phone Malcolm Edmondson Primary Care Provider [phone] System, Provider Not In Primary Care Provider Un available Kalyan, Johanna Alonso Primary Care Provider Unavai lable Kalyan, Johanna Alonso Primary Care Provider Unavai lable Unknown, Provider Primary Care Provider Unava ilable None, Pcp Primary Care Provider Unavailabl e Kalyan, Johanna Allen MD Primary Care Provider [phone] None, Pcp Primary Care Provider Unavailabl e Skye De Leon MD Primary Care Provider [phone] Kilo Valera Jr. Primary Care Provid er Skye De Leon MD Primary Care Provider [phone] Encounter Details Date Type Department Care Team (Late st Contact Info) Description 03/31/2015 Orders Only [facility] - [address] [place] [address] Param Rhodes MD [address] [place] [address] Schizoaffective disorder, unspecified condition (Primary Dx) Social [...] - 1.3 mg/dL 05/12/2015 7:38 PM EDT [facility] GFR Historical (MDRD) 54(L) >=60 mL/min/BSA 05/12/2015 7:38 PM EDT [facility] Estimated GFR (MDRD) 45(L) >=60 mL/min/BSA 05/12/2015 7:38 PM EDT [facility] Blood specimen (specimen) Venipuncture / Unknown 05/12/2015 5:30 PM EDT 05/12/2015 6:03 PM EDT [facility]ATORY - 05/12/2015 7:38 PM EDT Chronic Kidney Disease(CKD) Stages based on estimated GFR: GFR ml/min/1.73m^2 Stage of CKD 30-59 3 15-29 4 <15(or dialysis) 5 The GFR estimate is not accurate for: a) Acute renal failure. b) Dosage calculations for Pharmacy drugs. Param Rhodes MD LAB BLOOD ORDERABLES Final Re sult [address] [phone] * (ABNORMAL) Hepatic Function Panel (05/12/2015 5:30 PM EDT) Total Protein 7.1 6.2 - 8.2 g/dL 05/12/2015 7:38 PM T [facility] Albumin, Blood 3.7 3.4 - 4.9 g/dL 05/12/2015 7:38 PM EDT [facility] Total Bilirubin 0.4 0.2 - 1.3 mg/dL 05/12/2015 7:38 PM EDT [facility] Direct Bilirubin 0.1 0.1 - 0.5 mg/dL 05/12/2015 7:38 PM EDT [facility] Alkaline Phosphatase 120(H) 30 - 115 IU/L 05/12/2015 7:38 PM EDT [facility] AST (SGOT) 24 11 - 40 IU/L 05/12/2015 7:38 PM EDT [facility] ALT (SGPT) 34 7 - 40 IU/L 05/12/2015 7:38 PM EDT [facility] Blood specimen (specimen) Venipuncture / Unknown 05/12/2015 5:30 PM EDT 05/12/2015 6:03 PM EDT Param Rhodes MD LAB BLOOD ORDERABLES Final Re sult Performing Organization Address [facility]/ZIP Co de Phone Number [address] [address] * Valproic Acid Level (05/12/2015 5:30 PM EDT) Valproic Acid Level, Blood 72 50 - 100 ug/mL 05/12/2015 7:27 PM EDT [facility] Blood specimen (specimen) Venipuncture / Unknown 05/12/2015 5:30 PM EDT 05/12/2015 6:03 PM EDT Param Rhodes MD LAB BLOOD ORDERABLES Final Re sult Performing Organization Address [facility]/ZIP Co de Phone Number [address] [address] * (ABNORMAL) Creatinine with GFRE (04/07/2015 5:31 PM EDT) Creatinine, Blood 1.6(H) 0.6 - 1.3 mg/dL 04/07/2015 7:52 PM EDT [facility] GFR Historical (MDRD) 54(L) >=60 mL/min/BSA 04/07/2015 7:52 PM EDT [facility] Estimated GFR (MDRD) 45(L) >=60 mL/min/BSA 04/07/2015 7:52 PM EDT [facility] Blood specimen (specimen) Venipuncture / Unknown 04/07/2015 5:31 PM EDT 04/07/2015 6:11 PM EDT Narrative [facility] - 04/07/2015 7:52 PM EDT Chronic Kidney Disease(CKD) Stages based on estimated GFR: GFR ml/min/1.73m^2 Stage of CKD 30-59 3 15-29 4 <15(or dialysis) 5 The GFR estimate is not accurate for: a) Acute renal failure. b) Dosage calculations for Pharmacy drugs. Param Rhodes MD LAB BLOOD ORDERABLES Final Re sult [address] [address] * Hepatic Function Panel (04/07/2015 5:31 PM EDT) Total Protein 6.9 6.2 - 8.2 g/dL 04/07/2015 7:52 PM EDT [facility] Albumin, Blood 3.6 3.4 - 4.9 g/dL 04/07/2015 7:52 PM T [facility] Total Bilirubin 0.4 0.2 - 1.3 mg/dL 04/07/2015 7:52 PM T [facility] Direct Bilirubin 0.2 0.1 - 0.5 mg/dL 04/07/2015 7:52 PM T [facility] Alkaline Phosphatase 100 30 - 115 IU/L 04/07/2015 7:52 PM T [facility] AST (SGOT) 19 11 - 40 IU/L 04/07/2015 7:52 PM EDT [facility] ALT (SGPT) 30 7 - 40 IU/L 04/07/2015 7:52 PM EDT [facility] Blood specimen (specimen) Venipuncture / Unknown 04/07/2015 5:31 PM EDT 04/07/2015 6:11 PM EDT Param Rhodes MD LAB BLOOD ORDERABLES Final Re sult Performing Organization Address City/[facility]/ZIP Co de Phone Number [address] [address] * Valproic Acid Level (04/07/2015 5:31 PM EDT) Valproic Acid Level, Blood 60 50 - 100 ug/mL 04/07/2015 7:35 PM EDT [facility] Blood specimen (specimen) Venipuncture / Unknown 04/07/2015 5:31 PM EDT 04/07/2015 6:11 PM EDT Param Rhodes MD LAB BLOOD ORDERABLES Final Re sult Performing Organization Address [facility] Co de Phone Number [address] [address] documented in this encounter Visit Diagnoses Diagnosis [...] documented as of this encounter Care Teams Pen Ruler Operator Relationship Specialty Start Date End Date Malcolm Edmondson PCP - General 08/31/14 12/31/19 System, Provider Not In PCP - General 01/01/20 04/13/20 Johanna Biggs [address] [place] [address] [address] [place] [address] PCP - General 04/14/20 10/27/20 Johanna Biggs [address] [place] [address] Dr Spain [address] [place] [address] PCP - General 10/28/20 01/03/21 Unknown, Provider, [address] [place] [address] PCP - General 01/04/21 03/10/21 None, Pcp, [address] [place] [address] PCP - General 03/11/21 11/22/21 Johanna Biggs MD [address] [place] [address] PCP - General Family Practice 11/23/21 05/29/22 None, Pcp, [address] [place] [address] PCP - General 05/30/22 05/31/22 Skye De Leon MD [address] [place] [address] PCP - General Internal Medicine 06/01/22 11/08/22 Kilo Valera Jr. [address] [place] [address] PCP - General 11/09/22 12/17/22 Skye De Leon MD [address] [place] [address] PCP - General Internal Medicine 12/18/22 documented as of this encounter
--- OUTSIDE RECORDS SUMMARY | 2025-07-22 14:12 | XMS_ITS | Clinical Summary ---
Author Organization [facility] r Address [address] [place] [address] Phone Care Team Providers Care Adjustment Examiner Name Role Phone Malcolm Edmondson MD Unavailable [...] age to complete this topic Care Teams Adjustment Examiner Relationship Specialty Start Date End Date Malcolm Edmondson MD [address] PCP - Insurance 04/08/15
--- NOTE | 2025-07-22 14:13 | MHC.SLORD ---
Speech Language Pathology Order Status: Pt has been transferred to ICU after rapid response d/t oxygen desaturations. See RT and RN notes. LACE INSPECTOR consultation as indicated; no further PO trials to be evaluated as aspiration inevitable.
--- OUTSIDE RECORDS SUMMARY | 2025-07-22 14:13 | XMS_ITS | Encounter Summary ---
Author Organization [facility] Address [address] [place] [address] Care Team Providers Care Manager Training And Development Name Role Phone Malcolm Edmondson Primary Care Provider [phone] System, Provider Not In Primary Care Provider Un available Kalyan, Johanna Alonso Primary Care Provider Unavai lable Kalyan, Johanna Alonso Primary Care Provider Unavai lable Unknown, Provider Primary Care Provider Unava ilable None, Pcp Primary Care Provider Unavailabl e Kalyan, Johanna Allen MD Primary Care Provider [phone] None, Pcp Primary Care Provider Unavailabl e Skye De Leon MD Primary Care Provider [phone] Kilo Valera Jr. Primary Care Provid er Skye De Leon MD Primary Care Provider [phone] Encounter Details Date Type Department Care Team (Late st Contact Info) Description 11/29/2016 Orders Only [facility] 41 [facility] - [address] [place] [address] Param Rhodes MD [address] [place] [address] Schizoaffective disorder, bipolar type (Primary Dx) Social [...] encounter Visit Diagnoses Diagnosis Schizoaffective disorder, bipolar type- Primary Schizoaffective disorder, unspecified condition documented in [...] documented as of this encounter Care Teams Manager Training And Development Relationship Specialty Start Date End Date Malcolm Edmondson PCP - General 08/31/14 12/31/19 System, Provider Not In PCP - General 01/01/20 04/13/20 Johanna Biggs [address] [place] [address] [place] [address] PCP - General 04/14/20 10/27/20 Johanna Biggs [address] [place] [address] [place] [address] PCP - General 10/28/20 01/03/21 Unknown, Provider, [address] [place] [address] PCP - General 01/04/21 03/10/21 None, PcpMD [address] [place] [address] PCP - General 03/11/21 11/22/21 Johanna Biggs MD [address] [place] [address] PCP - General Family Practice 11/23/21 05/29/22 None, PcpMD [address] [place] [address] PCP - General 05/30/22 05/31/22 Skye De Leon MD [address] [place] [address] PCP - General Internal Medicine 06/01/22 11/08/22 Kilo Valera Jr. [address] [place] [address] PCP - General 11/09/22 12/17/22 Skye De Leon MD [address] [place] [address] PCP - General Internal Medicine 12/18/22 documented as of this encounter
--- OUTSIDE RECORDS SUMMARY | 2025-07-22 14:13 | XMS_ITS | Encounter Summary ---
Author Organization [facility] Address [address] [place] [address] Care Team Providers Care Special Weapons And Tactics Officer Name Role Phone Malcolm Edmondson Primary Care Provider [phone] System, Provider Not In Primary Care Provider Un available Kalyan, Johanna Alonso Primary Care Provider Unavai lable Kalyan, Johanna Alonso Primary Care Provider Unavai lable Unknown, Provider Primary Care Provider Unava ilable None, Pcp Primary Care Provider Unavailabl e Kalyan, Johanna Allen MD Primary Care Provider [phone] None, Pcp Primary Care Provider Unavailabl Skye Madison MD Primary Care Provider [phone] Kilo Valera Jr. Primary Care Provid er Skye De Leon MD Primary Care Provider [phone] Encounter Details Date Type Department Care Team (Late st Contact Info) Description 11/29/2016 Orders Only [facility] 41 [facility] - [address] [place] [address] Param Rhodes MD [address] [place] [address] Schizoaffective disorder (Primary Dx) Social History Tobacco [...] of this encounter Visit Diagnoses Diagnosis Schizoaffective disorder- Primary Schizoaffective disorder, unspecified condition documented in [...] documented as of this encounter Care Teams Special Weapons And Tactics Officer Relationship Specialty Start Date End Date LeisaMalcolm lopez PCP - General 08/31/14 12/31/19 System, Provider Not In PCP - General 01/01/20 04/13/20 Johanna Biggs [address] [place] [address] Dr Spain [address] [place] [address] PCP - General 04/14/20 10/27/20 Johanna Big[place] [address] PCP - General 10/28/20 01/03/21 Unknown, Provider, [address] [place] [address] PCP - General 01/04/21 03/10/21 None, Pcp, [address] [place] [address] PCP - General 03/11/21 11/22/21 Johanna Biggs MD [address] [place] [address] PCP - General Family Practice 11/23/21 05/29/22 None, PcpMD [address] [place] [address] PCP - General 05/30/22 05/31/22 Skye De Leon MD [address] [place] [address] PCP - General Internal Medicine 06/01/22 11/08/22 Kilo Valera Jr. [address] [place] [address] PCP - General 11/09/22 12/17/22 Skye De Leon MD [address] [place] [address] PCP - General Internal Medicine 12/18/22 documented as of this encounter
--- OUTSIDE RECORDS SUMMARY | 2025-07-22 14:13 | XMS_ITS | Encounter Summary ---
Author Organization [facility] Address [address] [place] [address] Care Team Providers Care Dairy Equipment Mechanic Name Role Phone Malcolm Edmondson Primary Care Provider [phone] System, Provider Not In Primary Care Provider Un available Kalyan, Johanna Alonso Primary Care Provider Unavai lable Kalyan, Johanna Alonso Primary Care Provider Unavai lable Unknown, Provider Primary Care Provider Unava ilable None, Pcp Primary Care Provider Unavailabl e Kalyan, Johanna Allen MD Primary Care Provider [phone] None, Pcp Primary Care Provider Unavailabl e Skye De Leon MD Primary Care Provider [phone] Kilo Valera Jr. Primary Care Provid er Skye De Leon MD Primary Care Provider [phone] Encounter Details Date Type Department Care Team (Late st Contact Info) Description 03/31/2015 Orders Only [facility] 41 [facility] - [address] [place] [address] Param Rhodes MD [address] [place] [address] Schizoaffective disorder, unspecified condition (Primary Dx) Social [...] documented as of this encounter Care Teams Dairy Equipment Mechanic Relationship Specialty Start Date End Date Malcolm Edmondson PCP - General 08/31/14 12/31/19 System, Provider Not In PCP - General 01/01/20 04/13/20 Johanna Biggs [address] [place] [address] [place] [address] PCP - General 04/14/20 10/27/20 Johanna Biggs [place] [address] PCP - General 10/28/20 01/03/21 Unknown, Provider, [address] [place] [address] PCP - General 01/04/21 03/10/21 None, Pcp, [address] [place] [address] PCP - General 03/11/21 11/22/21 Johanna Biggs MD [address] [place] [address] PCP - General Family Practice 11/23/21 05/29/22 Lisa, MD Rere [address] [place] [address] PCP - General 05/30/22 05/31/22 Skye De Leon MD [address] [place] [address] PCP - General Internal Medicine 06/01/22 11/08/22 Kilo Valera Jr. [address] [place] [address] PCP - General 11/09/22 12/17/22 Skye De Leon MD [address] [place] [address] PCP - General Internal Medicine 12/18/22 documented as of this encounter
--- OUTSIDE RECORDS SUMMARY | 2025-07-22 14:13 | XMS_ITS | Encounter Summary ---
Author Organization [facility] Address [address] [place] [address] Care Team Providers Care Component Lab Tech Name Role Phone Malcolm Edmondson Primary Care Provider [phone] System, Provider Not In Primary Care Provider Un available Kalyan, Johanna Alonso Primary Care Provider Unavai lable Kalyan, Johanna Alonso Primary Care Provider Unavai lable Unknown, Provider Primary Care Provider Unava ilable None, Pcp Primary Care Provider Unavailabl e Kalyan, Johanna Allen MD Primary Care Provider [phone] None, Pcp Primary Care Provider Unavailabl e Skye De Leon MD Primary Care Provider [phone] Kilo Valera Jr. Primary Care Provid er Skye De Leon MD Primary Care Provider [phone] Encounter Details Date Type Department Care Team (Late st Contact Info) Description 11/29/2016 Orders Only [facility] 41 [facility] - [address] [place] [address] Param Rhodes MD [address] [place] [address] Social History Tobacco Use Types Packs/Day Years [...] documented as of this encounter Care Teams Component Lab Tech Relationship Specialty Start Date End Date Malcolm Edmondson PCP - General 08/31/14 12/31/19 System, Provider Not In PCP - General 01/01/20 04/13/20 Johanna Biggs [address] [place] [address] Dr [address] [place] [address] PCP - General 04/14/20 10/27/20 Johanna Big[place] [address] PCP - General 10/28/20 01/03/21 Unknown, Provider, [address] [place] [address] PCP - General 01/04/21 03/10/21 None, Pcp, [address] [place] [address] PCP - General 03/11/21 11/22/21 Johanna Biggs MD [address] [place] [address] PCP - General Family Practice 11/23/21 05/29/22 None, MD Rere [address] [place] [address] PCP - General 05/30/22 05/31/22 Skye De Leon MD [address] [place] [address] PCP - General Internal Medicine 06/01/22 11/08/22 Kilo Valera Jr. [address] [place] [address] PCP - General 11/09/22 12/17/22 Skye De Leon MD [address] [place] [address] PCP - General Internal Medicine 12/18/22 documented as of this encounter
--- OUTSIDE RECORDS SUMMARY | 2025-07-22 14:13 | XMS_ITS | Encounter Summary ---
Author Organization [facility] Address [address] [place] [address] Care Team Providers Care Instructional Consultant Name Role Phone Malcolm Edmondson Primary Care Provider [phone] System, Provider Not In Primary Care Provider Un available Kalyan, Johanna Alonso Primary Care Provider Unavai lable Kalyan, Johanna Alonso Primary Care Provider Unavai lable Unknown, Provider Primary Care Provider Unava ilable None, Pcp Primary Care Provider Unavailabl e Kalyan, Johanna Allen MD Primary Care Provider [phone] None, Pcp Primary Care Provider Unavailabl e Skye De Leon MD Primary Care Provider [phone] Kilo Valera Jr. Primary Care Provid er Skye De Leon MD Primary Care Provider [phone] Encounter Details Date Type Department Care Team (Late st Contact Info) Description 11/29/2016 Orders Only [facility] 41 [facility] - [address] [place] [address] Param Rhodes MD [address] [place] [address] Schizoaffective disorder, bipolar type (Primary Dx) Social [...] documented as of this encounter Care Teams Instructional Consultant Relationship Specialty Start Date End Date Malcolm Edmondson PCP - General 08/31/14 12/31/19 System, Provider Not In PCP - General 01/01/20 04/13/20 Johanna Biggs [address] [place] [address] [place] [address] PCP - General 04/14/20 10/27/20 Johanna Biggs [address] [place] [address] [place] [address] PCP - General 10/28/20 01/03/21 Unknown, Provider, [address] [place] [address] PCP - General 01/04/21 03/10/21 None, PcpMD [address] [place] [address] PCP - General 03/11/21 11/22/21 Johanna Biggs MD [address] [place] [address] PCP - General Family Practice 11/23/21 05/29/22 None, PcpMD [address] [place] [address] PCP - General 05/30/22 05/31/22 Skye De Leon MD [address] [place] [address] PCP - General Internal Medicine 06/01/22 11/08/22 Kilo Valera Jr. [address] [place] [address] PCP - General 11/09/22 12/17/22 Skye De Leon MD [address] [place] [address] PCP - General Internal Medicine 12/18/22 documented as of this encounter
--- OUTSIDE RECORDS SUMMARY | 2025-07-22 14:13 | XMS_ITS | Encounter Summary ---
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 [...] ORDERABLE S Final Result Performing Organization Address [facility] Co de Phone Number [facility] [address] [place] [address], [place] [phone] * Strep Pneumoniae Urine Antigen (12/23/2022 7:46 AM EST) Strep pneumo Urine Antigen Negative Negative STEPHEN 12/23/2022 4:55 PM EST [facility] Comment:Suggesting no curren t or recent pneumococcal infection. Infection due to S. Pneumoniae can not be ruled out since the antigen present in the sample maybe below the detection limit of the test. Urine MID-STREAM URINE SPECIMEN / Unknown 12/23/2022 7:46 AM EST 12/23/2022 3:28 PM EST us Len Goetz MD MICROBIOLOGY - GENERAL ORDERABLE S Final Result Performing Organization Address [facility] Co de Phone Number [facility] [address] [place] [address], [place] [phone] * Culture, Blood (12/23/2022 4:16 AM EST) Culture No growth after 5 days STEPHEN 12/28/2022 11:01 AM EST [facility] Blood PERIPHERAL NERVOUS SYSTEM STRUCTURE / Unknown 12/23/2022 4:16 AM EST 12/23/2022 10:14 AM EST us Mike Ewing MD MICROBIOLOGY - GENERAL ORDERABLE S Final Result Performing Organization Address City/[facility]/ZIP Co de Phone Number [facility] [address] [place] [address], [place] [phone] * Culture, Blood (12/23/2022 4:15 AM EST) Culture No growth after 5 days STEPHEN 12/28/2022 11:01 AM EST [facility] Blood PERIPHERAL NERVOUS SYSTEM STRUCTURE / Unknown 12/23/2022 4:15 AM EST 12/23/2022 10:14 AM EST us Mike Ewing MD MICROBIOLOGY - GENERAL ORDERABLE S Final Result Performing Organization Address [facility] Co de Phone Number [facility] [address] [place] [address], [place] [phone] documented in this encounter Visit Diagnoses Not [...] documented as of this encounter Care Teams Stitch Burnisher Relationship Specialty Start Date End Date Skye De Leon MD [address] [place] [id number] PCP - General Internal Medicine 12/18/22 documented as of this encounter
--- OUTSIDE RECORDS SUMMARY | 2025-07-22 14:13 | XMS_ITS | Clinical Summary ---
Author Organization [facility] Address [address] [place] [address] [address] Care Team Providers Care Production Troubleshooter Name Role Phone Poc, Non Atrius Pcp Or Primary Care Provider Nivia vailable Medications * This document contains information received from the source organization and may not represent a complete record from that organization. PERCOCET TABLET 5-325MG PO (OXYCODONE HCL/ACETAMINOPHE N) 1-2 every 4-6 hours as needed 25 0 06/06/2005 Active Active Problems Problem Noted Date Diagnosed Date Tinea cruris 03/17/1976 Mental Health Visit - AMRS 10/24/1975 Dermatitis due to unknown cause 02/06/1975 Musculoskeletal pain 02/06/1975 Acne 02/06/1975 Immunizations Immunization Administration Dates Next Due TB Test 02/06/1975 Tetanus Booster 02/06/1975 Social History Tobacco Use Types Packs/Day Years Used Date Smoking Tobacco: Never Assessed Sex and Gender Information Value Date Recorded Sex Assigned at Not on file Legal Sex Male 12:21 PM EDT Gender Identity Not on file Sexual Orientation Not on file Occupation Industry Job Start Date Job End Date [employer] Not on file Not on file Not on file Obstetrics History Last Filed Vital Signs Vital Sign Reading Time Taken Comments Blood Pressure 110/99 05/30/2005 12:00 AM EDT Pulse 112 02/06/1975 12:00 AM EDT Temperature 35.3 C (95.6 F) 06/06/2005 12:00 AM EDT Respiratory Rate - - Oxygen Saturation - - Inhaled Oxygen Concentration - - Weight 77.6 kg (171 lb) 03/17/1976 12:00 AM EDT Height 179.1 cm (5' 10.5 ) 02/06/1975 12:00 AM E DT Body Mass Index 24.19 02/06/1975 12:00 AM EDT Plan of Treatment Health Maintenance Due Date Last Done Comments DTAP/TDAP/TD VACCINE (2 - Tdap) 02/07/1975 5 HEP B INITIAL SCREENING 1975 LIPID SCREENING 1977 PSA SCREEN DECISION: UPDATE W EDIT MODIFIERS 1977 * GLUCOSE OR A1C SCREENING - Q3YR 1992 975 HEP C SCREENING 1993 COLORECTAL SCREENING: UPDATE W EDIT MODIFIERS 2002 PERIODIC HEALTH REVIEW 2007 PNEUMOCOCCAL VACCINE(S) 50+ (1 of 1 - PCV) 2007 ZOSTER VACCINE (1 of 2) 2007 COMPLETE EYE EXAM (65+YRS) 2022 COVID-19 Vaccine (2023-2 5 season) 2025 FLU SEASONAL (#1) 06/22/2025 HAEMOPHILUS INFLUENZA VACCINE Aged Out No longer eligible based on patient's age to complete this topic HEPATITIS A VACCINE Aged Out No longe r eligible based on patient's age to complete this topic HEPATITIS B VACCINE Aged Out No longe r eligible based on patient's age to complete this topic POLIO VACCINE Aged Out No longer elig ible based on patient's age to complete this topic RSV Vaccine Infant//toddler Aged Out No longer eligible based on patient's age to complete this topic Procedures Procedure Name Priority Date/Time Associated Diagnosis Comments GLUCOSE 02/06/1975 from Last 3 Months or Most Recently Relevant to Health Maintenance Results * GLUCOSE RANDOM SERUM (02/06/1975) Narrative 02/06/1975 80 2 1/2 HR DATA SOURCE: MANUAL [facility] Final Resul t from Last 3 Months or Most Recently Relevant to Health Maintenance Care Teams Production Troubleshooter Relationship Specialty Start Date End Date Poc, Non Atrius Pcp Or PCP - General 07/01/01
--- NOTE | 2025-07-22 14:19 | PHA.MEDREC ---
Pharmacy Consult ? Medication Reconciliation Pharmacy has completed the medication reconciliation. Pt transferred from [facility] so [facility] rec done utilizing medication list from that floor.
--- NOTE | 2025-07-22 14:40 | PM.CCHP ---
History of Present Illness Date of Service: 07/22/25 Chief Complaint: shortness of breath 70-year-old male with history of schizoaffective disorder admitted to the Geripsych unit from [facility] where he was admitted for altered was mental status with hospital course complicated for COVID-19 disease. He also had psychosis and suicidal ideation for which he was transferred here. His medical history is also pertinent for hypertension, chronic kidney disease, coronary artery disease, L4-L5 laminectomy, BPH, GERD, LOUANN on CPAP 5 to 20 cm auto mode, oropharyngeal dysphagia with frequent aspiration for which he has a PEG tube for feeding. Patient has a long history of dysphagia and swallowing studies, last barium swallow in May 2025. Per historical record, he is likely to be continued risk for aspiration and unlikely to meet nutritional needs on a full p.o. diet. Patient was given p.o. intake such as ice cream and pudding for pleasure at previous hospital so was continued here too as he is alert, oriented and is aware of risks of ongoing aspiration. This morning he aspirated on comfort feed leading to hypoxia and tachypnea so is transferred to MICU. Review of Systems Review of Systems: Yes all other systems are reviewed and are negative and Unobtainable due to mental status PMFSH Past Medical History Medical History (Updated 07/22/25 @ 14:54 by Cong Moore RN) Gout BPH (benign prostatic hyperplasia) GERD (gastroesophageal reflux disease) Erectile dysfunction CKD (chronic kidney disease) detention current use of clozapine Vascular dementia Delusions Suicidal ideation Gastrointestinal tube present detention current use of clozapine Aspiration pneumonia COVID Dysphagia Depression Sleep apnea Schizo affective schizophrenia Social History Social History Household Members: None Household Members Other:: Facility residents Housing: Other Housing Other:: Patient has been in hospital/rehabs for past 1 1/2 years. Do you presently have visiting nurse or other home services: No Comment: 5 min check Patient Tobacco Use Status: Never used Tobacco e-Cigarette/Vaping Use: Never Used Second Hand Smoke Exposure: No Advance Directives: Yes Advance Directives on File: Yes Advance Directives Date on File: 06/26/25 service: No Sexual orientation: Straight/Heterosexual Meds Allergies Allergy/AdvReac Type Severity Reaction Status Date / Time No Known Allergies Allergy Verified 06/25/25 21:33 Active Medications: Current Medications Acetaminophen (Acetaminophen 325 Mg Tablet) 650 mg PO Q6H PRN PRN Reason: Pain, Mild 1-3,fever,headache Albuterol/Ipratropium (Albuterol/Iprat 2.5/0.5mg 3 Ml Ampul.Neb) 3 ml INHALE Q4H PRN PRN Reason: Shortness of Breath/Wheezing Calcium Carbonate (Calcium Carbonate 750 Mg Tab.Chew) 750 mg PO Q4H PRN PRN Reason: Heartburn Enoxaparin Sodium (Enoxaparin Sodium 40 Mg/0.4 Ml Syringe) 40 mg SUBCUT Q24H [facility] Lactated Ringer's (Lr) 1,000 mls @ 100 mls/hr IVCONT .Q10H [facility] Piperacillin Sod/Tazobactam (Sod 4.5 gm/ Sodium Chloride) 100 mls @ 200 mls/hr IV Q6H [facility] Sodium Chloride (Ns) 1,000 mls @ 999 mls/hr IV .Q1H1M [facility] Stop: 07/22/25 15:00 Sodium Chloride (Ns) 1,000 mls @ 999 mls/hr IV .Q1H1M [facility] Stop: 07/22/25 15:00 Magnesium Hydroxide (Milk Of Magnesia 30 Ml Oral.Susp) 30 ml PO DAILY PRN PRN Reason: Constipation Melatonin (Melatonin 3 Mg Tablet) 6 mg PO BEDTIME PRN PRN Reason: Insomnia Ondansetron HCl (Ondansetron Hcl 4 Mg/2 Ml Vial) 4 mg IVPUSH Q8H PRN PRN Reason: Vomiting Pantoprazole Sodium (Pantoprazole Sodium 40 Mg/10 Ml Vial) 40 mg IVPUSH DAILY@0630 [facility] Sodium Chloride (0.9 % Sodium Chloride Flush 3 Ml Syringe) 3 ml IVFLUSH QSHIFT [facility] Physical Exam Vital Signs: Vital Signs: Last Vital Signs Pulse 135 H 07/22/25 14:00 Resp 21 H 07/22/25 14:00 BP 152/31 H 07/22/25 14:00 Pulse Ox 95 07/22/25 14:00 O2 Del Method High Flow Nasal C annula 07/22/25 14:00 O2 Flow Rate 40 07/22/25 14:00 FiO2 55 07/22/25 14:00 Oxygen Flow Rate 50 07/22/25 12:40 BMI result Body Mass Index 23.1 General: Elderly male in mild acute distress, ill appearing and tired appearing Nutritional Appearance: well nourished and overweight Eyes: appearance normal, both eyes and all related structures; Alignment and Position: alignment normal and position normal Neck: No lymphadenopathy, no thyromegaly Resp: bilateral air entry equal, occasional added sounds present Cardio: Regular rate, regular rhythm; Heart sounds: S1 normal heart sound present and S2 normal heart sound present GI: soft, nontender, no guarding, no hepatosplenomegaly : bladder normal to inspection, bladder normal to palpation, no renal angle tenderness Skin: no rashes or lesions noted and elasticity normal Neuro: Slightly confused due to acute distress with seen secondary to overall clinical condition. As such no focal deficit Results Labs 07/22/25 13:41 07/22/25 13:17 Labs: Laboratory Results - last 24 hr 07/22/25 07/22/25 13:17 13:41 MCV 92.3 MCH 31.9 MCHC 34.5 RDW 16.3 H Plt Count 219 MPV 10.4 Immature Gran % (Auto) Cancelled Neut % (Auto) Cancelled Lymph % (Auto) Cancelled Towns % (Auto) Cancelled Eos % (Auto) Cancelled Baso % (Auto) Cancelled Lymph # (Auto) Cancelled Towns # (Auto) Cancelled Eos # (Auto) Cancelled Baso # (Auto) Cancelled Abs Immat Gran (auto) Cancelled Absolute Neuts (auto) Cancelled Absolute Nucleated RBC 0.000 Nucleated RBC % (auto) 0.0 Anion Gap 15 Estim Creat Clear Calc TNP Estimated GFR 52 Random Glucose 141 H Lactic Acid 2.9 H* Calcium 9.8 Phosphorus 2.7 Magnesium 2.0 Total Bilirubin 0.4 AST 30 ALT 10 Alkaline Phosphatase 97 NT-Pro-B Natriuret Pep 947.3 H Total Protein 7.1 Albumin 3.7 Assessment and Plan (1) Schizophrenia: Qualifiers: Schizophrenia type: unspecified Qualified Code(s): F20.9 - Schizophrenia, unspecified Status: Acute (2) Acute respiratory failure: Status: Acute Plan Acute respiratory failure: Secondary to aspiration pneumonia Patient has oropharyngeal dyspnea with documented aspiration on barium swallow, currently status post PEG tube We will keep him NPO and stop pleasure feeds unless the code status is changed to DNI On high-flow oxygen to keep the saturations above 90 Schizophrenia/schizoaffective disorder: Continue clozapine, haloperidol, gabapentin and trazodone as per psych Lactic acidosis: Secondary to hypoxia, blood cultures sent Bolus fluids for possible sepsis GI: will keep him NPO, will continue tube feeds and medications through PEG tube Foul-smelling stools- we will send stool viral panel and CDiff toxin Cards: CAD- continue aspirin and statin Hypertension- currently blood pressures soft, will withold antihypertensives Lines: periperal Prophylaxis: Lovenox, pantoprazole
[2025-07-22 14:57] LABS: CDiff Gene PCR NEGATIVE (Negative)
--- NOTE | 2025-07-22 15:07 | HE.ICUCC ---
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 Patient reported to be febrile 102. Last temp 100.1. Patient initially lethargic upon transfer, but arousable, mental status improving, reports paranoid thoughts about hospital and his brother trying to hurt him. Denies HI/SI. Patient put on high flow nasal cannula when he arrived by RT. Patient coughing up large amts thick sputum, intermit hacking, croupy cough. O2sat maintained. Oxygen needs improving - 40 liters, 40%, transitioned to 2 liters nasal cannula. External catheter put on patient r/t not being able to tolerate activity. Patient incont large amt stool, yellow, liquid. Dr Dailey made aware - stool sample ordered and sent to lab. Rectal tube inserted. Neg C-diff. According to Per social work assessment from behavioral health units: Admitted to [place] [id number] on 06/29/25 from [facility]. Carter was initially admitted to from 06/25-06/28/25 but due to medical concerns he had been transferred to [facility] medical floor. He was initially admitted to on 06/25/25 from [facility] ([facility]? medical floor. 04/15 - 06/24/25: Admitted from a nursing facility, due to concerns for altered mental status, unresponsiveness and aphasia. His admission was complicated by covid PNA, and he displayed episodes of delirium, paranoia, agitation, made verbal threats towards staff, and expressed intermittent suicidal ideation. He received PT r/t balance issues and deconditioning. He worked with speech therapy r/t aspiration precautions. On 05/12 he pulled out his G-tube x2 r/t agitation. January 2025 - 3rd back surgery. 3rd back surgery. After surgery he went to [facility] ([facility] then returned to his assisted living for a short time, then went to another [facility] ([facility]). He transferred to from [facility]. Carter was living in an assisted living facility ([facility], since September 2024 through January 2025 Contacts: Brother/HCP: Delvin Raymundo [phone] Psychiatrist: Dr. Kayla Corral ([facility]) [phone] Therapist: José Miguel Jefferson ([facility]) [phone] PCP: Kilo Valera ([facility]) [phone]
[2025-07-22 15:08] LABS: E. coli EAEC Not Detected (Not Detect.); E. coli EPEC Not Detected (Not Detect.); E. coli ETEC Not Detected (Not Detect.); E. coli STEC Not Detected (Not Detect.); Shigella sp./EIEC Not Detected (Not Detect.)
[2025-07-22 15:23] LABS: Reflex Lactate? Lactic Acid Added
[2025-07-22 15:26] LABS: Atypical Lymph Absolute Manual 0.1 x10*3/uL; Atypical Lymphs Percent Manual 2 % (0-6); Band Neutrophils Percent 36 % (3-5); Large Platelet PRESENT; Lymphocytes Absolute Manual 0.1 X10*3/uL (1.2-4.9); Lymphocytes Percent Manual 2 % (20-40); Monocytes Absolute Manual 0.1 X10*3/uL (0.1-1.2); Monocytes Percent Manual 1 % (2-11); Neutrophils Absolute Manual 7.0 X10*3/uL (2.0-8.3); Neutrophils Percent Manual 59 % (45-73); RBC Morphology NOTED
[2025-07-22 15:29] LABS: Toxic Vacuolation PRESENT
[2025-07-22] MEDS: Lactated Ringers 1,000 ML 100 ML IVCONT (16:04)
[2025-07-22 16:10] LABS: ~Lactic Acid-LAB USE ONLY 2.5 mmol/L (0.5-2.0)
[2025-07-22] MEDS: Valproic Acid Liquid 250 MG/5 ML SOLUTION 1000 MG G-TUBE (17:17)
[2025-07-22 17:50] LABS: Reflex Lactate? 2 Y
[2025-07-22 18:33] LABS: ~Lactic Acid-LAB USE ONLY 2.6 mmol/L (0.5-2.0)
[2025-07-22] MEDS: Furosemide 40 MG/4 ML VIAL IVPUSH (19:21)
[2025-07-22 20:17] LABS: Appearance Urine Clear; Glucose Urine UA Negative (Negative); PH 6.5 (5.0-9.0); Specific Gravity - Urine 1.015 (1.005-1.025); UMIC TRIGGER UA YES
[2025-07-22] MEDS: Norepinephrine Bitartrate/NS 32 MG/250 ML PLAST..BAG 14.06 MG IVCONT (20:45)
[2025-07-22] MEDS: Albumin Human 25 % 100 ML 133.33 ML IV ×3 (20:51→23:49)
--- NOTE | 2025-07-22 21:35 | W.PM.CCHP ---
Procedures Date of Service Date of Service: 07/22/25 <THOMAS Asif - Last Filed: 07/22/25 21:52> 07/23/25 <Pernell Dailey MD - Last Filed: 07/23/25 15:34> Central Line Placement Left IJ: Central Line Comments: All of the patient's IV sites are not working, the 1 that has Levophed running on the left forearm has infiltrated. Central line is needed, the reasons, benefits and risks were discussed in detail with the patient although I am not 100% sure of how reliable his memory is, he was able to verbalize back all the information given to him in the reasons why he needed to have this procedure done, he consented, nurses at bedside as witnessed. <THOMAS Asif - Last Filed: 07/22/25 21:52> Time out performed: Yes <THOMAS Asif - Last Filed: 07/22/25 21:52> Sterile Technique Used: Yes <THOMAS Asif - Last Filed: 07/22/25 21:52> Patient placed on monitor/pulse ox: Yes <THOMAS Asif - Last Filed: 07/22/25 21:52> MD prep: mask, gown, gloves and other <THOMAS Asif - Last Filed: 07/22/25 21:52> Central line prep: Chlorhexidine scrub and sterile drapes applied <THOMAS Asif - Last Filed: 07/22/25 21:52> Local anesthesia used: other anesthetic (The patient continue to move regardless of reassurance, I was necessary to do conscious sedation with a total of 75 mg of propofol administered in 3 different doses of 25 mg age, the patient was on full oxygen support with GlideScope and respiratory therapist at bedside.) <THOMAS Asif - Last Filed: 07/22/25 21:52> Amount of anesthesia used (ml): 5 <THOMAS Asif - Last Filed: 07/22/25 21:52> Ultrasound used for placement: Yes <THOMAS Asif - Last Filed: 07/22/25 21:52> Central line lumen inserted: triple (Two passes were made with the needle as the patient moved a lot, the anatomy showed very close position of the carotid artery in the left IJ.) <THOMAS Asif Last Filed: 07/22/25 21:52> Post procedure: sutured in place, good blood return (Very little dark blood noted.), all ports aspirated, flushed, capped and sterile dressing applied <THOMAS Asif Last Filed: 07/22/25 21:52> Post procedure x-ray: other (I was concerned that the tip of the catheter may be in the aortic notch, a line set up was applied with a positive reading which means it is in the artery.) <THOMAS Asif Last Filed: 07/22/25 21:52> Patient tolerated procedure: well and other (As above for x-ray as described on complications.) <THOMAS Asif Last Filed: 07/22/25 21:52> Complications: arterial puncture/cannulation (Confirmed both by x-ray, arterial blood pressure reading, radiologist's reading. This was discussed in detail with Dr. Blackburn (vascular surgeon) who advised to leave it in place and he will remove it tomorrow in case he needs to proceed some other way. No medications will be administered.) and other <THOMAS Asif Last Filed: 07/22/25 21:52>
--- NOTE | 2025-07-22 21:54 | W.PM.CCHP ---
Procedures Date of Service Date of Service: 07/22/25 <THOMAS Asif - Last Filed: 07/22/25 21:56> 07/23/25 <Pernell Dailey MD - Last Filed: 07/23/25 15:34> Central Line Placement Left Femoral: Central Line Comments: Given the complication with a left IJ, while the patient is still under conscious sedation I decided to place a left femoral central line under ultrasound. <THOMAS Asif - Last Filed: 07/22/25 21:56> Consent for Procedure: Emergent-no informed consent obtained <THOMAS Asif - Last Filed: 07/22/25 21:56> Sterile Technique Used: Yes <THOMAS Asif - Last Filed: 07/22/25 21:56> Patient placed on monitor/pulse ox: Yes <THOMAS Asif - Last Filed: 07/22/25 21:56> MD prep: mask, gown and gloves <THOMAS Asif - Last Filed: 07/22/25 21:56> Local anesthesia used: lidocaine 1% <THOMAS Asif - Last Filed: 07/22/25 21:56> Amount of anesthesia used (ml): 5 <THOMAS Asif - Last Filed: 07/22/25 21:56> Ultrasound used for placement: Yes <THOMAS Asif - Last Filed: 07/22/25 21:56> Central line lumen inserted: triple <THOMAS Asif - Last Filed: 07/22/25 21:56> Post procedure: sutured in place, good blood return, all ports aspirated, flushed, capped and sterile dressing applied <THOMAS Asif - Last Filed: 07/22/25 21:56> Post procedure x-ray: tip of catheter in good position and other (No bowel perforation. No free air.) <THOMAS Asif Last Filed: 07/22/25 21:56> Patient tolerated procedure: well and no complications <THOMAS Asif - Last Filed: 07/22/25 21:56> Complications: none <THOMAS Asif - Last Filed: 07/22/25 21:56>
[2025-07-22] MEDS: 0.9 % Sodium Chloride Flush 3 ML SYRINGE IVFLUSH (23:49)
[2025-07-23] VITALS (35 sets, daily range): BP systolic 118–174; BP diastolic 56–90; PULSE 82–106; RESP 14–25; TEMP 36.3–36.9; O2SAT 90–97; BMI 22.8
[2025-07-23] MEDS: Albumin Human 25 % 100 ML 133.33 ML IV (00:44)
--- NOTE | 2025-07-23 01:10 | PC.NURSE ---
Addendum entered by Sejal Galdamez RN 07/23/25 03:37: pt made SI statements to Beryl BURKS, pt comes from [facility] psych for SI. supervisor opening and picking made aware 1;1 now at bedside Original Note: assumed care 1900, pt lethargic but arousable to voice, making paranoid remarks, pt receiving LEVO 0.4mcg/kg/min, labored breathing with Crackles per PA 40mg IV Lasix PA at bedside for central line placement to left IJ , xray to confirm, results question if line is arterial, Desdemona set up with positive waveform, per PA keep line as Desdemona for BP measurements vascular consult placed. Left Femoral TLC placed. question of levo infiltration site marked PA aware. no new orders at this time. pt switched to 4x concentrated levo. IV lasix good effect > 1000ml outpt. repo q2 , tele sitter and fall precautions in place, plan of care continues
[2025-07-23 05:57] LABS: VBG HCO3 30 mmol/L (22-26); VBG O2 % Saturation 96.0 %
[2025-07-23 06:11] LABS: Hematocrit 25.7 % (42.0-52.0); Hemoglobin 9.0 g/dl (14.0-18.0); Mean Corpuscular HGB Conc 35.0 g/dl (31.0-36.0); Mean Corpuscular Hemoglobin 31.9 pg (27.0-33.0); Mean Corpuscular Volume 91.1 fL (80.0-98.0); NRBC Abs Auto 0.000 X10*3/uL (0.0-0.012); NRBC Pct Auto 0.0 /100WBC (0.0-0.2); Platelet Count 203 X10*3/uL (160-400); Red Blood Count 2.82 X10*6/uL (4.60-5.80); White Blood Count 6.6 X10*3/uL (4.8-10.8)
[2025-07-23 06:30] LABS: Alanine Aminotransferase 7 U/L (0-40); Albumin Level 4.0 g/dL (3.5-5.0); Alkaline Phosphatase 51 U/L (39-117); Anion Gap 14 (12-20); Aspartate Amino Transferase 22 U/L (5-37); Blood Urea Nitrogen 40 mg/dL (9-16); Calcium 9.3 mg/dL (8.4-10.2); Carbon Dioxide 27 mmol/L (22-29); Chloride 110 mmol/L (96-108); Creatinine Clr Calc Pharmacy 61.9; Estimated Glomerular Filt Rate > 60; Magnesium 1.9 mg/dL (1.6-2.6); Potassium 3.3 mmol/L (3.3-5.1); Sodium 148 mmol/L (135-145); Total Protein 6.3 g/dL (6.5-8.0)
[2025-07-23 06:31] LABS: Venous Blood Gas Refer to POC result
--- NOTE | 2025-07-23 07:00 | CA_ITS ---
Transthoracic Echocardiogram Patient (Last, First, Middle): Carter Raymundo, Gender: M Date of : 1955 Age: 70 Procedure Date: 07/23/2025 Procedure Type: Transthoracic Echocardiogram Location: ICU Height: 180.34 cm Weight: 73.94 kg BSA: 1.93 m2 Heart Rate: 92 bpm BP: 163 / 77 mmHg Assistant Press Operator Offset: ALICIA/BETO Referring MD: Jong GUZMAN Symptoms: chf Study Quality: Adequate w contrast ECG Rhythm: Sinus Conclusions: - The left ventricular systolic function is mildly decreased. The calculated ejection fraction is 51% by biplane method. - No obvious valvular pathology seen on this study. Findings Procedure Information Contrast agent, definity, is being given per protocol without apparent complications. Left Ventricle Normal left ventricular cavity size. There is normal left ventricular wall thickness. The left ventricular systolic function is mildly decreased. The calculated ejection fraction is 51% by biplane method. There is no evidence of regional wall motion abnormalities. Diastolic function is normal for age. Right Ventricle Normal right ventricular cavity size and systolic function. Atria Both atria are normal in size. Aortic Valve There is a normal trileaflet aortic valve. There is no aortic valve stenosis. There is trace (trivial) aortic valve regurgitation. Mitral Valve The mitral valve appears normal. There is trace mitral valve regurgitation. There is no mitral valve stenosis. Pulmonic Valve The pulmonic valve is likely normal. Tricuspid Valve There is no tricuspid valve regurgitation. Tricuspid regurgitation envelope is inadequate for calculation of right ventricular systolic pressure. Great Vessels Top normal ascending aortic size at 3.8 cm. Venous The inferior vena cava is normal in size and collapses greater than 50% with inspiration. Pericardium/Pleural There is no evidence of pericardial effusion. Prior Study Comparison No prior study available for comparison. Recommendations, Care & Conclusions No obvious valvular pathology seen on this study. Measurements 2D Linear Measurements IVSd: 0.95 0.6-0.9/0.6-1.0 cm LVIDd: 5.28 3.9-5.3/4.2-5.9 cm LVIDd Index: 2.74 2.4-3.2/2.2-3.1 cm/m2 LVIDs: 3.66 2.0-3.6 cm LVPWd: 0.93 0.7-1.1 cm LA Diam: 3.00 2.7-3.8/3.0-4.0 cm LAIDs Index: 1.55 1.5-2.3 cm/m2 LV Mass: 228.50 67-162/88-224 g LV Mass Index: 118.39 43-95/49-115 g/m2 LVOT Diam: 2.40 3.0+(-)1.3 cm 2D Systolic Function EF 4C: 44.50 >55% EF 2C: 59.90 >55% EF BiP: 51.30 >55% Mitral Valve MV Pk E: 0.65 MV PK A: 0.84 MV Decel Time: 132.00 E/A: 0.80 E'Lateral: 9.36 E'Medial: 7.18 E/E' Med: 9.10 E/E' Lat: 7.00 PHT: 39.00 MVA PHT: 5.64 Decel [place]: 4.93 Aortic Valve AoV Pk Albert: 1.05 AoV Mn Albert: 0.78 AoV VTI: 0.19 AoV Pk Grad: 4.00 Aov Mn Grad: 3.00 PHIL Cont.VTI: 4.28 LVOT LVOT Pk Albert: 0.94 LVOT Mn Albert: 0.63 LVOT VTI: 0.18 LVOT Pk Grad: 4.00 LVOT Mn Grad: 2.00 LVOT Diam: 2.40 LVOT Area: 4.52 Diastolic Function MV Pk E: 0.65 MV Pk A: 0.84 E/A: 0.80 E'Medial: 7.18 E/E' Med: 9.10 E' Laterial: 9.36 E/E' Lat: 7.00 Right Ventricle TAPSE (mm): 32.70 TVS' Albert: 14.40 Tricuspid Valve RA Press: 3.00 Great Vessels Aorta Sinus of Valsalva: 3.90 2.0-3.5 cm Ao Asc: 3.80 2.1-3.4 cm Pulmonary Valve PV Pk Albert: 0.88 Peak PV Grad: 3.00 Updated in Other Vendor System with Status of Final Venkata Adhikari MD electronically signed on 07/23/2025 12:25:36 PM with status of Final
[2025-07-23 07:21] LABS: Band Neutrophils Percent 22 % (3-5); Eosinophils Absolute Manual 0.1 X10*3/uL (0.0-0.4); Eosinophils Percent Manual 1 % (0-4); Lymphocytes Absolute Manual 0.1 X10*3/uL (1.2-4.9); Lymphocytes Percent Manual 2 % (20-40); Monocytes Absolute Manual 0.3 X10*3/uL (0.1-1.2); Monocytes Percent Manual 4 % (2-11); Neutrophils Absolute Manual 6.1 X10*3/uL (2.0-8.3); Neutrophils Percent Manual 71 % (45-73)
[2025-07-23 07:23] LABS: RBC Morphology NORMAL
[2025-07-23 07:24] LABS: Dohle Bodies PRESENT
[2025-07-23] MEDS: 0.9 % Sodium Chloride Flush 3 ML SYRINGE IVFLUSH ×3 (07:59→20:21)
--- NOTE | 2025-07-23 08:59 | PM.CCPN ---
Subjective Subjective Date of Service: 07/23/25 Interval History: on levophed for vasopressor support 0.12 on simple mask for oxygenation 3L/min Critical Care Time (minutes): 35 Physical Exam Vital Signs: Vital Signs: Last Vital Signs Temp 97.4 F 07/23/25 08:00 Pulse 89 07/23/25 08:00 Resp 20 07/23/25 08:00 BP 139/64 07/23/25 08:00 Pulse Ox 97 07/23/25 08:00 O2 Del Method Oxymask 07/23/25 08:00 O2 Flow Rate 4 07/23/25 08:00 FiO2 55 07/22/25 19:00 Oxygen Flow Rate 50 07/22/25 12:40 BMI result Body Mass Index 22.8 General: Elderly male in severe acute distress, chronic ill appearing and tired appearing Nutritional Appearance: well nourished and overweight Eyes: appearance normal, both eyes and all related structures; Alignment and Position: alignment normal and position normal Neck: No lymphadenopathy, no thyromegaly Resp: bilateral air entry equal, bilateral crackles heard Cardio: Regular rate, regular rhythm; Heart sounds: S1 normal heart sound present and S2 normal heart sound present GI: soft, nontender, no guarding, no hepatosplenomegaly : bladder normal to inspection, bladder normal to palpation, no renal angle tenderness Skin: no rashes or lesions noted and elasticity normal Neuro: Confusion present, suiscial overnight, no focal deficits, moves all extremities Objective Data Labs 07/23/25 05:48 07/23/25 05:48 Labs: Laboratory Results - last 24 hr 07/22/25 07/22/25 07/22/25 13:09 13:17 13:41 WBC 7.4 RBC 3.92 L Hgb 12.5 L Hct 36.2 L MCV 92.3 MCH 31.9 MCHC 34.5 RDW 16.3 H Plt Count 219 MPV 10.4 Immature Gran % (Auto) Cancelled Neut % (Auto) Cancelled Lymph % (Auto) Cancelled [place] % (Auto) Cancelled Eos % (Auto) Cancelled Baso % (Auto) Cancelled Lymph # (Auto) Cancelled [place] # (Auto) Cancelled Eos # (Auto) Cancelled Baso # (Auto) Cancelled Abs Immat Gran (auto) Cancelled Absolute Neuts (auto) Cancelled Absolute Nucleated RBC 0.000 Nucleated RBC % (auto) 0.0 Neutrophils % (Manual) 59 Band Neutrophils % 36 H Lymphocytes % (Manual) 2 L Atypical Lymphs % (Man) 2 Monocytes % (Manual) 1 L Eosinophils % (Manual) Abs Neuts (Manual) 7.0 Lymphocytes # (Manual) 0.1 L Atyp Lymphs # (Manual) 0.1 Monocytes # (Manual) 0.1 Eosinophils # (Manual) Toxic Vacuolation PRESENT Dohle Bodies Platelet Estimate NORMAL Large Platelets PRESENT Plt Morphology Comment NOTED RBC Morphology NOTED VBG pH VBG pCO2 VBG pO2 VBG HCO3 VBG O2 Saturation VBG Base Excess Sodium 142 Potassium 4.3 Chloride 106 Carbon Dioxide 25 Anion Gap 15 BUN 42 H Creatinine 1.37 Estim Creat Clear Calc TNP Estimated GFR 52 Random Glucose 141 H Lactic Acid 2.9 H* Lactic Acid F/U @ 2Hr Lactic Acid F/U @ 4Hr Calcium 9.8 Phosphorus 2.7 Magnesium 2.0 Total Bilirubin 0.4 AST 30 ALT 10 Alkaline Phosphatase 97 NT-Pro-B Natriuret Pep 947.3 H Total Protein 7.1 Albumin 3.7 Urine Color Urine Appearance Urine pH Ur Specific [place] Urine Protein Urine Glucose (UA) Urine Ketones Urine Blood Urine Nitrite Ur Leukocyte Esterase Urine RBC Urine WBC Ur Squamous Epith Cells Urine Bacteria Hyaline Casts Stl C. cayetanensis PCR Not Detected Stool Rotavirus A PCR Not Detected Stl Adenov F 40/41 PCR Not Detected Stool Astrovirus (PCR) Not Detected Stool Campylobacter PCR Not Detected Stool Cryptosporidium PCR Not Detected Stl Sh Tox Pr E STEC PCR Not Detected Stool E coli O157 PCR Not applicable Stl Enterotoxigenic E PCR Not Detected Stool EPEC (PCR) Not Detected Stool EAEC (PCR) Not Detected Stl E. histolytica PCR Not Detected Stool Giardia Lamblia PCR Not Detected Stl P. shigelloides PCR Not Detected Stool Salmonella PCR Not Detected Stool Sapovirus (PCR) Not Detected Stl Shigella/EIEC PCR Not Detected St Y.enterocolitica PCR Not Detected Stool Vibrio (PCR) Not Detected Stl Vibrio cholerae PCR Not Detected Stl Norovirus GI/GII PCR Not Detected C. difficile Tox B Gene NEGATIVE 07/22/25 07/22/25 07/22/25 15:45 18:09 19:52 WBC RBC Hgb Hct MCV MCH MCHC RDW Plt Count MPV Immature Gran % (Auto) Neut % (Auto) Lymph % (Auto) [place] % (Auto) Eos % (Auto) Baso % (Auto) Lymph # (Auto) [place] # (Auto) Eos # (Auto) Baso # (Auto) Abs Immat Gran (auto) Absolute Neuts (auto) Absolute Nucleated RBC Nucleated RBC % (auto) Neutrophils % (Manual) Band Neutrophils % Lymphocytes % (Manual) Atypical Lymphs % (Man) Monocytes % (Manual) Eosinophils % (Manual) Abs Neuts (Manual) Lymphocytes # (Manual) Atyp Lymphs # (Manual) Monocytes # (Manual) Eosinophils # (Manual) Toxic Vacuolation Dohle Bodies Platelet Estimate Large Platelets Plt Morphology Comment RBC Morphology VBG pH VBG pCO2 VBG pO2 VBG HCO3 VBG O2 Saturation VBG Base Excess Sodium Potassium Chloride Carbon Dioxide Anion Gap BUN Creatinine Estim Creat Clear Calc Estimated GFR Random Glucose Lactic Acid Lactic Acid F/U @ 2Hr 2.5 H* Lactic Acid F/U @ 4Hr 2.6 H* Calcium Phosphorus Magnesium Total Bilirubin AST ALT Alkaline Phosphatase NT-Pro-B Natriuret Pep Total Protein Albumin Urine Color Yellow Urine Appearance Clear Urine pH 6.5 Ur Specific [place] 1.015 Urine Protein Trace Urine Glucose (UA) Negative Urine Ketones Negative Urine Blood Negative Urine Nitrite Negative Ur Leukocyte Esterase Small (1+) H Urine RBC 0-2 Urine WBC 0-5 Ur Squamous Epith Cells 0-2 Urine Bacteria None Seen Hyaline Casts 0-2 Stl C. cayetanensis PCR Stool Rotavirus A PCR Stl Adenov F 40/41 PCR Stool Astrovirus (PCR) Stool Campylobacter PCR Stool Cryptosporidium PCR Stl Sh Tox Pr E STEC PCR Stool E coli O157 PCR Stl Enterotoxigenic E PCR Stool EPEC (PCR) Stool EAEC (PCR) Stl E. histolytica PCR Stool Giardia Lamblia PCR Stl P. shigelloides PCR Stool Salmonella PCR Stool Sapovirus (PCR) Stl Shigella/EIEC PCR St Y.enterocolitica PCR Stool Vibrio (PCR) Stl Vibrio cholerae PCR Stl Norovirus GI/GII PCR C. difficile Tox B Gene 07/23/25 07/23/25 05:48 05:53 WBC 6.6 RBC 2.82 L D Hgb 9.0 L D Hct 25.7 L D MCV 91.1 MCH 31.9 MCHC 35.0 RDW 16.1 H Plt Count 203 MPV 10.4 Immature Gran % (Auto) Cancelled Neut % (Auto) Cancelled Lymph % (Auto) Cancelled [place] % (Auto) Cancelled Eos % (Auto) Cancelled Baso % (Auto) Cancelled Lymph # (Auto) Cancelled [place] # (Auto) Cancelled Eos # (Auto) Cancelled Baso # (Auto) Cancelled Abs Immat Gran (auto) Cancelled Absolute Neuts (auto) Cancelled Absolute Nucleated RBC 0.000 Nucleated RBC % (auto) 0.0 Neutrophils % (Manual) 71 Band Neutrophils % 22 H Lymphocytes % (Manual) 2 L Atypical Lymphs % (Man) Monocytes % (Manual) 4 Eosinophils % (Manual) 1 Abs Neuts (Manual) 6.1 Lymphocytes # (Manual) 0.1 L Atyp Lymphs # (Manual) Monocytes # (Manual) 0.3 Eosinophils # (Manual) 0.1 Toxic Vacuolation Dohle Bodies PRESENT Platelet Estimate NORMAL Large Platelets Plt Morphology Comment NORMAL RBC Morphology NORMAL VBG pH 7.59 H VBG pCO2 31 VBG pO2 68 VBG HCO3 30 H VBG O2 Saturation 96.0 VBG Base Excess 8.4 Sodium 148 H Potassium 3.3 D Chloride 110 H Carbon Dioxide 27 Anion Gap 14 BUN 40 H Creatinine 1.20 Estim Creat Clear Calc 61.9 Estimated GFR > 60 Random Glucose 124 H Lactic Acid Lactic Acid F/U @ 2Hr Lactic Acid F/U @ 4Hr Calcium 9.3 Phosphorus 2.8 Magnesium 1.9 Total Bilirubin 0.6 AST 22 ALT 7 Alkaline Phosphatase 51 NT-Pro-B Natriuret Pep Total Protein 6.3 L Albumin 4.0 Urine Color Urine Appearance Urine pH Ur Specific [place] Urine Protein Urine Glucose (UA) Urine Ketones Urine Blood Urine Nitrite Ur Leukocyte Esterase Urine RBC Urine WBC Ur Squamous Epith Cells Urine Bacteria Hyaline Casts Stl C. cayetanensis PCR Stool Rotavirus A PCR Stl Adenov F 40/41 PCR Stool Astrovirus (PCR) Stool Campylobacter PCR Stool Cryptosporidium PCR Stl Sh Tox Pr E STEC PCR Stool E coli O157 PCR Stl Enterotoxigenic E PCR Stool EPEC (PCR) Stool EAEC (PCR) Stl E. histolytica PCR Stool Giardia Lamblia PCR Stl P. shigelloides PCR Stool Salmonella PCR Stool Sapovirus (PCR) Stl Shigella/EIEC PCR St Y.enterocolitica PCR Stool Vibrio (PCR) Stl Vibrio cholerae PCR Stl Norovirus GI/GII PCR C. difficile Tox B Gene Progress Note: A&P Assessment and plan (1) Schizophrenia: Status: Acute (2) Acute respiratory failure: Status: Acute (3) LOUANN (obstructive sleep apnea): Status: Acute (4) Septic shock: Status: Acute Plan Acute respiratory failure: Secondary to aspiration pneumonia Patient has oropharyngeal dyspnea with documented aspiration on barium swallow, currently status post PEG tube We will keep him NPO and stop pleasure feeds unless the code status is changed to DNI On oxymask 3L/min to keep the saturations above 90 On Zosyn for antibiotic coverage, cultures remain negative Schizophrenia/schizoaffective disorder: Continue clozapine, haloperidol, gabapentin and trazodone as per psych Septic shock: Secondary to aspiration pneumonia Currently on Levophed support 0.12, titrate to keep the map above 65 mm Hg CAD- continue aspirin and statin Lactic acidosis: Trended, stable Acute hypernatremia: sodium 148 will monitor GI: will keep him NPO, will continue tube feeds and medications through PEG tube Foul-smelling stools- negative stool viral panel and CDiff toxin Lines: left femoral TLC Prophylaxis: Lovenox, pantoprazole Quality Stroke Does the patient have a stroke diagnosis?: No VTE Prior VTE?: No VTE Risk Level:: Medical - moderate - high VTE Device Contraindication: Treatment Not Indicated VTE Drug Contraindication: N/A - Med Ordered
--- NOTE | 2025-07-23 09:54 | PM.CNGS ---
History of Present Illness Consult details Consult date: 07/23/25 Reason for consult: other Narrative: This is a 70-year-old gentleman with a history of schizoaffective disorder from the psych unit who presented to the ICU for shortness of breath. He has a history of dysphasia for which he has a PEG tube for feeding. He was at a continued risk for aspiration. It appears yesterday he aspirated on feeds leading to hypoxia tachypnea and he was subsequently transferred to the intensive care unit. The concern was aspiration pneumonia and he needed central access for medications. He had pressors running and needed more central access and a left IJ line was attempted. It was discovered that it was arterial. Sorting Machine Operator team reached out to me we left the line in place overnight and he is now for vascular evaluation. Review of Systems Review of Systems: Yes all other systems are reviewed and are negative Constitutional: Constitutional: Reports no additional constitutional complaints ENT: Reports Normal hearing present Cardiovascular: Cardiovascular: Denies chest pain, Denies chest pain at rest, Denies chest pain with activity and Denies pedal edema Respiratory: Respiratory: Denies cough Gastrointestinal: Gastrointestinal: Denies abdominal pain Musculoskeletal: Musculoskeletal: Denies abnormal gait, Denies muscle cramps and Denies radiating pain into limb Integumentary/Breasts: Skin/Breast: Denies skin ulcer and Denies wounds Neurologic: Reports Normal hearing present and Denies abnormal gait Psychiatric: Psychiatric: Reports no additional psychiatric complaints [facility] Past Medical History Medical History (Updated 07/23/25 @ 08:59 by Pernell Dailey MD) Gout BPH (benign prostatic hyperplasia) GERD (gastroesophageal reflux disease) Erectile dysfunction CKD (chronic kidney disease) skilled nursing current use of clozapine Vascular dementia Delusions Suicidal ideation skilled nursing current use of clozapine Aspiration pneumonia COVID Dysphagia Depression Sleep apnea Schizo affective schizophrenia Surgical History Surgical History (Updated 07/22/25 @ 15:44 by Cong Moore RN) Previous back surgery Gastrointestinal tube present Social History Social History Household Members: Unknown / Unable to assess Household Members Other:: Facility residents Housing: Assisted Living Facility Housing Other:: Patient has been in hospital/rehabs for past 1 1/2 years. Comment: 5 min check Patient Tobacco Use Status: Never used Tobacco e-Cigarette/Vaping Use: Never Used Second Hand Smoke Exposure: No Currently Displaying Signs/Symptoms of Drug Intoxication Withdrawal: No Spiritual Healthcare Practices: unable to respond Mandaen Healthcare Practices: unable to respond Cultural Healthcare Practices: unable to respond Advance Directives: Yes Advance Directives on File: Yes Advance Directives Date on File: 06/26/25 Recently lost weight without trying: Unsure Nutrition Risks: Difficulty chewing, Difficulty swallowing, On aspiration precautions and Receiving home tube feeding or CPN service: No Sexual orientation: Straight/Heterosexual Meds Allergies Allergy/AdvReac Type Severity Reaction Status Date / Time morphine Allergy Itching Verified 07/22/25 15:46 Active Medications: Current Medications Acetaminophen (Acetaminophen 325 Mg Tablet) 650 mg PO Q6H PRN PRN Reason: Pain, Mild 1-3,fever,headache Albuterol/Ipratropium (Albuterol/Iprat 2.5/0.5mg 3 Ml Ampul.Neb) 3 ml INHALE Q4H PRN PRN Reason: Shortness of Breath/Wheezing Atorvastatin Calcium (Atorvastatin Calcium 40 Mg Tablet) 40 mg G-TUBE BEDTIME [facility] Last Admin: 07/22/25 23:27 Dose: Not Given Calcium Carbonate (Calcium Carbonate 750 Mg Tab.Chew) 750 mg PO Q4H PRN PRN Reason: Heartburn Clozapine (Clozapine 100 Mg Tablet) 200 mg G-TUBE DAILY@1700 [facility] Last Admin: 07/22/25 17:15 Dose: 200 mg Clozapine (Clozapine 25 Mg Tablet) 50 mg G-TUBE DAILY@1100 [facility] Enoxaparin Sodium (Enoxaparin Sodium 40 Mg/0.4 Ml Syringe) 40 mg SUBCUT Q24H [facility] Last Admin: 07/22/25 14:40 Dose: 40 mg Gabapentin (Gabapentin 300 Mg Capsule) 300 mg G-TUBE BEDTIME [facility] Last Admin: 07/22/25 23:27 Dose: Not Given Gabapentin (Gabapentin 100 Mg Capsule) 100 mg G-TUBE DAILY [facility] Last Admin: 07/23/25 07:53 Dose: 100 mg Haloperidol (Haloperidol 1 Mg Tablet) 2 mg G-TUBE BID PRN PRN Reason: Agitation Haloperidol (Haloperidol 1 Mg Tablet) 1 mg G-TUBE DAILY [facility] Last Admin: 07/23/25 07:53 Dose: 1 mg Haloperidol (Haloperidol 1 Mg Tablet) 3 mg G-TUBE BEDTIME [facility] Last Admin: 07/22/25 23:27 Dose: Not Given Piperacillin Sod/Tazobactam (Sod 4.5 gm/ Sodium Chloride) 100 mls @ 200 mls/hr IV Q6H [facility] Last Infusion: 07/23/25 06:43 Dose: Infused Norepinephrine Bitartrate (Levophed) 32 mg in 250 mls @ 0 mls/hr IVCONT .Q0M [facility]; Protocol Last Titration: 07/23/25 09:43 Dose: 0.1 mcg/kg/min, 3.52 mls/hr Magnesium Hydroxide (Milk Of Magnesia 30 Ml Oral.Susp) 30 ml PO DAILY PRN PRN Reason: Constipation Melatonin (Melatonin 3 Mg Tablet) 6 mg PO BEDTIME PRN PRN Reason: Insomnia Ondansetron HCl (Ondansetron Hcl 4 Mg/2 Ml Vial) 4 mg IVPUSH Q8H PRN PRN Reason: Vomiting Pantoprazole Sodium (Pantoprazole Sodium 40 Mg/10 Ml Vial) 40 mg IVPUSH DAILY@0630 [facility] Last Admin: 07/23/25 06:12 Dose: 40 mg Sodium Chloride (0.9 % Sodium Chloride Flush 3 Ml Syringe) 3 ml IVFLUSH QSHIFT [facility] Last Admin: 07/23/25 07:59 Dose: 3 ml Trazodone HCl (Trazodone Hcl 50 Mg Tablet) 150 mg G-TUBE BEDTIME [facility] Last Admin: 07/22/25 23:28 Dose: Not Given Valproic Acid (Valproic Acid Liquid 250 Mg/5 Ml Solution) 1,000 mg G-TUBE BID@1100,1700 [facility] Last Admin: 07/22/25 17:17 Dose: 1,000 mg Physical Exam Vital Signs: Vital Signs: Last Vital Signs Temp 97.4 F 07/23/25 08:00 Pulse 92 07/23/25 09:43 Resp 18 07/23/25 09:00 BP 158/63 H 07/23/25 09:43 Pulse Ox 97 07/23/25 09:00 O2 Del Method Oxymask 07/23/25 09:00 O2 Flow Rate 4 07/23/25 09:00 FiO2 55 07/22/25 19:00 Oxygen Flow Rate 50 07/22/25 12:40 BMI result Body Mass Index 22.8 Const: General: cooperative, healthy appearing and comfortable Orientation/consciousness: oriented to person, oriented to place and oriented to time HEENT: Head: Yes normal to inspection Neck: Neck: Yes normal visual inspection Carotids: no bruits Chest: Chest palpation & inspection: normal inspection of the chest Resp: Effort & Inspection: normal respiratory effort and able to speak in complete sentences Auscultation: clear to auscultation bilaterally, no crackles, no rales, no rhonchi and no wheezes Cardio: Rate: regular rate Rhythm: regular rhythm Heart sounds: S1 normal heart sound present and S2 normal heart sound present Bruits: no carotid bruits Peripheral pulses: Peripheral pulses 2+ throughout GI: Inspection: Yes normal to inspection Skin: Wounds: no wounds Hair: normal Neuro: General: oriented to person, oriented to place and oriented to time Cranial nerves: Yes CN's II-XII intact bilaterally and Yes Normal hearing present Cognition (Neuro): normal cognition Motor exam (neuro): 5/5 motor strength present throughout Extrem: Other: Left neck line Left femoral line General: No clubbing, No cyanosis and No edema Psych: Appearance: grossly normal Mental Status: mental status grossly normal Speech and movement: Normal speech and movement present Results Labs 07/23/25 05:48 07/23/25 05:48 Labs: Abnormal lab results 07/22/25 07/22/25 07/22/25 Range/Units 13:17 13:41 15:45 RBC 3.92 L (4.60-5.80) X10*6/uL Hgb 12.5 L (14.0-18.0) g/dl Hct 36.2 L (42.0-52.0) % RDW 16.3 H (11.0-16.0) % Band Neutrophils % 36 H (3-5) % Lymphocytes % (Manual) 2 L (20-40) % Monocytes % (Manual) 1 L (2-11) % Lymphocytes # (Manual) 0.1 L (1.2-4.9) X10*3/uL VBG pH (7.32-7.43) VBG HCO3 (22-26) mmol/L Sodium (135-145) mmol/L Chloride (96-108) mmol/L BUN 42 H (9-16) mg/dL Random Glucose 141 H (60-115) mg/dL Lactic Acid 2.9 H* (0.5-2.0) mmol/L Lactic Acid F/U @ 2Hr 2.5 H* (0.5-2.0) mmol/L Lactic Acid F/U @ 4Hr (0.5-2.0) mmol/L NT-Pro-B Natriuret Pep 947.3 H (<300) pg/mL Total Protein (6.5-8.0) g/dL Ur Leukocyte Esterase (Negative) 07/22/25 07/22/25 07/23/25 Range/Units 18:09 19:52 05:48 RBC 2.82 L D (4.60-5.80) X10*6/uL Hgb 9.0 L D (14.0-18.0) g/dl Hct 25.7 L D (42.0-52.0) % RDW 16.1 H (11.0-16.0) % Band Neutrophils % 22 H (3-5) % Lymphocytes % (Manual) 2 L (20-40) % Monocytes % (Manual) (2-11) % Lymphocytes # (Manual) 0.1 L (1.2-4.9) X10*3/uL VBG pH (7.32-7.43) VBG HCO3 (22-26) mmol/L Sodium 148 H (135-145) mmol/L Chloride 110 H (96-108) mmol/L BUN 40 H (9-16) mg/dL Random Glucose 124 H (60-115) mg/dL Lactic Acid (0.5-2.0) mmol/L Lactic Acid F/U @ 2Hr (0.5-2.0) mmol/L Lactic Acid F/U @ 4Hr 2.6 H* (0.5-2.0) mmol/L NT-Pro-B Natriuret Pep (<300) pg/mL Total Protein 6.3 L (6.5-8.0) g/dL Ur Leukocyte Esterase Small (1+) H (Negative) 07/23/25 Range/Units 05:53 RBC (4.60-5.80) X10*6/uL Hgb (14.0-18.0) g/dl Hct (42.0-52.0) % RDW (11.0-16.0) % Band Neutrophils % (3-5) % Lymphocytes % (Manual) (20-40) % Monocytes % (Manual) (2-11) % Lymphocytes # (Manual) (1.2-4.9) X10*3/uL VBG pH 7.59 H (7.32-7.43) VBG HCO3 30 H (22-26) mmol/L Sodium (135-145) mmol/L Chloride (96-108) mmol/L BUN (9-16) mg/dL Random Glucose (60-115) mg/dL Lactic Acid (0.5-2.0) mmol/L Lactic Acid F/U @ 2Hr (0.5-2.0) mmol/L Lactic Acid F/U @ 4Hr (0.5-2.0) mmol/L NT-Pro-B Natriuret Pep (<300) pg/mL Total Protein (6.5-8.0) g/dL Ur Leukocyte Esterase (Negative) Short CBC 07/22/25 07/23/25 Range/Units 13:41 05:48 WBC 7.4 6.6 (4.8-10.8) X10*3/uL Hgb 12.5 L 9.0 L D (14.0-18.0) g/dl Hct 36.2 L 25.7 L D (42.0-52.0) % Plt Count 219 203 (160-400) X10*3/uL BMP 07/22/25 07/23/25 13:17 05:48 Sodium 142 148 H Potassium 4.3 3.3 D Chloride 106 110 H Carbon Dioxide 25 27 BUN 42 H 40 H Creatinine 1.37 1.20 Calcium 9.8 9.3 Liver Function 07/22/25 07/23/25 Range/Units 13:17 05:48 Total Bilirubin 0.4 0.6 (0.0-1.0) mg/dL AST 30 22 (5-37) U/L ALT 10 7 (0-40) U/L Alkaline Phosphatase 97 51 (39-117) U/L Albumin 3.7 4.0 (3.5-5.0) g/dL Urine 07/22/25 Range/Units 19:52 Urine Color Yellow Urine Appearance Clear Urine pH 6.5 (5.0-9.0) Ur Specific [place] 1.015 (1.005-1.025) Urine Protein Trace (Neg-Trace) mg/dL Urine Glucose (UA) Negative (Negative) mg/dL All other labs normal. Assessment and Plan (1) Septic shock: Status: Acute Plan In short patient has left neck line. Line was removed with no complications. 10 minutes direct pressure was held minimal hematoma. Patient was neurologically intact. We will continue to observe. We will follow peripherally with you. Thank you for allowing us to assist in his care. If there are any questions or concerns please do not hesitate to contact us. Procedures Date of Service Date of Service: 07/23/25
--- NOTE | 2025-07-23 10:01 | MHC.CM.PN ---
IMM 07/23 TO BROTHER DANIEL ([phone]) MESSAGE LEFT TO RETURN CALL. PT IN FROM [facility], PLAN TO RETURN THERE WHEN MEDICALLY CLEARED. CM WILL CONTINUE TO FOLLOW.
[2025-07-23] MEDS: Valproic Acid Liquid 250 MG/5 ML SOLUTION 1000 MG G-TUBE ×2 (11:14→16:58)
--- NOTE | 2025-07-23 11:42 | MHC.CLN ---
PT IS CURRENTLY NPO FAMILIAR WITH PT FROM [facility]SF[facility]-PT RECEIVES NUTRITION VIA PEG TUBE FEEDING (PREVIOUSLY ON VITAL 1.5 FORMULA) REVIEWED LABS IF TF NEEDED; RECOMMEND OSMOLITE 1.5 AT MAX GOAL RATE 60ML/HR WITH 300ML FREE WATER FLUSHES Q 6 HRS TO PROVIDE 2160KCALS (29KCALS/KG), 90G PROTEIN (1.2G/KG), 2297ML TOTAL WATER FROM FORMULA AND FLUSHES (31ML/KG) MONITOR TOLERANCE AND LYTES FOLLOWING FOR DIET ADVANCEMENT SEE FULL ASSESSMENT
--- NOTE | 2025-07-23 15:11 | HO.WOUND ---
Wound Consult: Initial 70yr old?male admitted to [facility] on 07/22/25- See progress notes and H&P for detailed history.? Wound consult placed for Buttock and Heels.? Patient agreeable to assessment and photo documentation.? Buttock and sacrum noted for redness - tissue remains intact and blanchable - foam dressing in place re-applied. Bilateral Heels - Noted for redness and remains blanchable and intact - elevated off of bed with pillows, recommend foam dressing application and or heel boot protectors Recommendations: 1. Turn and Reposition every 2 hours and as needed for patient comfort.? Use pillows or wedges to support off loading positions. 2. Off Load all bony prominences with use of pillows and heel boots if needed.? Apply Preventative foams where needed. ? 3. Monitor for incontinence and moisture control, use barrier creams when needed for prevention and treatment. 4. Provide adequate and supplemental nutrition.? 5. Continue low air loss mattress. 6. When applicable maintain blood glucose levels per Providers order. Sacrum? - Off Load Pressure with Q2 hr turns and use of pillows - Routine cleansing.? Apply skin prep allow to dry.? Cover with foam dressing to aid in off loading and protection from friction. Change every 3 days and PRN. Bilateral Heels? - Elevate heels off of bed surface with pillows.? Float heels off of pillows.? Apply skin prep allow to dry.? Apply heel foam dressings, peel back and assess Q shift and change every 5-7 days and PRN. May use Heel Boot Protectors instead of foam dressings. Re-consult wound care Nurse for wound deterioration or wound changes.
--- NOTE | 2025-07-23 16:06 | PC.NURSE ---
Assumed care [id number]. Patient alert x person and place. Very calm cooperative. Left IJ TLC removed by Dr Blackburn, no bleeding or hematoma noted. Left Femoral TLC patent. Titrated 4x strength Levophed off. Echo at bedside today. engine monitor- Sinus rhythm. Weaned to room air. Rhonchi with nonproductive cough. Male external catheter, good urine output. Rectal tube patent. Blanchable redness to coccyx/heels, foam dressings in place. Receiving IV Zosyn. Seen by Psych. Moe Felipe for DVT prophylaxis. Will be transferring to [facility] when bed available. See flowsheet for further assessment documentation.
--- NOTE | 2025-07-23 17:10 | PM.PSYCN ---
History of Present Illness Date of Service: 07/23/2025 Chief Complaint: sick Sources of Information: patient interviewed, chart reviewed and crisis/core team assessment reviewed HPI Narrative: Interim Hx: pt seen as follow up. He reports feeling better. He is upset about being here in the hospital and hoping he is able to go to [facility] and women's. 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 No SI/HI. suspicious at times. taking medications. Past Psychiatric History: Inpatient: he had admission more than 30 years ago, then a year ago for suicidal ideation. OP: sees a psychologist for more than 20 years, [address]. José Miguel Jefferson. Past medication trials: mostly he has been stable on clozapine, recently added haldol while inpatient, lithium, depakote. Review of Systems Review of Systems Yes all other systems are reviewed and are negative and Unobtainable due to mental status Constitutional: Reports no additional constitutional complaints Reports Normal hearing present Cardiovascular: Denies chest pain, Denies chest pain at rest, Denies chest pain with activity and Denies pedal edema Respiratory: Denies cough Gastrointestinal: Denies abdominal pain Musculoskeletal: Denies abnormal gait, Denies muscle cramps and Denies radiating pain into limb Skin/Breast: Denies skin ulcer and Denies wounds Reports Normal hearing present and Denies abnormal gait Psychiatric: Reports no additional psychiatric complaints [facility] Medical History (Updated 07/23/25 @ 08:59 by Pernell Dailey MD) Gout BPH (benign prostatic hyperplasia) GERD (gastroesophageal reflux disease) Erectile dysfunction CKD (chronic kidney disease) [facility] current use of clozapine Vascular dementia Delusions Suicidal ideation [facility] current use of clozapine Aspiration pneumonia COVID Dysphagia Depression Sleep apnea Schizo affective schizophrenia Surgical History (Updated 07/22/25 @ 15:44 by Cong Moore RN) Previous back surgery Gastrointestinal tube present Family History: none (second cousin with schizophrenia) Social History: Pt was born in [place]. Grew up with parents and older brother. He went briefly to [employer] had a mental breakdown. 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 He was , 4 years ago. He did not have children. Trauma History: divorce of parents Diagnostics Vital Signs (24Hr): Vital Signs - 24 hr 07/22/25 17:15 07/22/25 18:00 07/22/25 18:00 Temperature Pulse Rate 113 H 117 H 119 H Respiratory Rate 18 Blood Pressure 80/39 L 78/48 L 91/46 L Pulse Oximetry 92 Oxygen Delivery Method High Flow Nasal Cannula Oxygen Flow Rate 40 Fraction of Inspired Oxygen 55 07/22/25 18:30 07/22/25 18:36 07/22/25 19:00 Temperature Pulse Rate 114 H 119 H 116 H Respiratory Rate 11 L Blood Pressure 88/49 L 86/41 L 105/56 L Pulse Oximetry Oxygen Delivery Method High Flow Nasal Cannula Oxygen Flow Rate 40 Fraction of Inspired Oxygen 55 07/22/25 20:00 07/22/25 20:45 07/22/25 20:45 Temperature 97.4 F Pulse Rate 115 H 116 H 117 H Respiratory Rate 22 H Blood Pressure 119/60 116/60 119/60 Pulse Oximetry 94 Oxygen Delivery Method Nasal Cannula Oxygen Flow Rate 6 Fraction of Inspired Oxygen 07/22/25 21:00 07/22/25 21:59 07/22/25 23:00 Temperature Pulse Rate 113 H 105 H 102 H Respiratory Rate 21 H 22 H 21 H Blood Pressure 102/73 106/73 93/85 Pulse Oximetry 96 99 95 Oxygen Delivery Method Nasal Cannula Nasal Cannula Nasal Cannula Oxygen Flow Rate 6 6 6 Fraction of Inspired Oxygen 07/22/25 23:23 07/23/25 00:00 07/23/25 01:00 Temperature Pulse Rate 101 H 101 H 96 Respiratory Rate 18 20 Blood Pressure 106/50 L 133/61 123/56 L Pulse Oximetry 96 94 Oxygen Delivery Method Oxymask Oxymask Oxygen Flow Rate 3 3 Fraction of Inspired Oxygen 07/23/25 01:36 07/23/25 02:00 07/23/25 03:00 Temperature Pulse Rate 106 H 103 H 102 H Respiratory Rate 20 20 Blood Pressure 136/63 151/68 H 153/68 H Pulse Oximetry 93 96 Oxygen Delivery Method Nasal Cannula Nasal Cannula Oxygen Flow Rate 3 3 Fraction of Inspired Oxygen 07/23/25 03:39 07/23/25 04:00 07/23/25 04:28 Temperature Pulse Rate 103 H 102 H 103 H Respiratory Rate 22 H Blood Pressure 148/65 H 150/67 H 153/69 H Pulse Oximetry 92 Oxygen Delivery Method Nasal Cannula Oxygen Flow Rate 3 Fraction of Inspired Oxygen 07/23/25 05:00 07/23/25 05:29 07/23/25 06:00 Temperature Pulse Rate 101 H 105 H 95 Respiratory Rate 20 20 Blood Pressure 152/73 H 123/58 L 152/69 H Pulse Oximetry 93 96 Oxygen Delivery Method Nasal Cannula Oxymask Oxygen Flow Rate 3 3 Fraction of Inspired Oxygen 07/23/25 06:14 07/23/25 07:00 07/23/25 07:13 Temperature Pulse Rate 99 94 95 Respiratory Rate 20 Blood Pressure 146/67 H 137/64 174/90 H Pulse Oximetry 97 Oxygen Delivery Method Oxymask Oxygen Flow Rate 4 Fraction of Inspired Oxygen 07/23/25 07:29 07/23/25 07:45 07/23/25 08:00 Temperature 97.4 F Pulse Rate 94 91 89 Respiratory Rate 20 Blood Pressure 173/87 H 161/77 H 139/64 Pulse Oximetry 97 Oxygen Delivery Method Oxymask Oxygen Flow Rate 4 Fraction of Inspired Oxygen 07/23/25 09:00 07/23/25 09:01 07/23/25 09:43 Temperature Pulse Rate 94 88 92 Respiratory Rate 18 Blood Pressure 158/78 H 158/78 H 158/63 H Pulse Oximetry 97 Oxygen Delivery Method Oxymask Oxygen Flow Rate 4 Fraction of Inspired Oxygen 07/23/25 10:00 07/23/25 11:00 07/23/25 11:11 Temperature Pulse Rate 96 98 94 Respiratory Rate 18 18 Blood Pressure 174/72 H 145/61 H 145/61 H Pulse Oximetry 95 93 Oxygen Delivery Method Oxymask Oxymask Oxygen Flow Rate 4 4 Fraction of Inspired Oxygen 07/23/25 12:00 07/23/25 12:08 07/23/25 13:00 Temperature 98.5 F Pulse Rate 90 93 Respiratory Rate 15 Blood Pressure 139/60 139/63 130/56 L Pulse Oximetry 95 94 Oxygen Delivery Method Room Air Room Air Oxygen Flow Rate Fraction of Inspired Oxygen 07/23/25 13:26 07/23/25 14:00 07/23/25 14:17 Temperature Pulse Rate 92 93 93 Respiratory Rate 25 H Blood Pressure 123/56 L 139/62 137/62 Pulse Oximetry 90 L Oxygen Delivery Method Room Air Oxygen Flow Rate Fraction of Inspired Oxygen 07/23/25 15:00 07/23/25 15:55 Temperature Pulse Rate 93 91 Respiratory Rate 20 14 Blood Pressure 121/71 130/75 Pulse Oximetry 94 93 Oxygen Delivery Method Room Air Room Air Oxygen Flow Rate Fraction of Inspired Oxygen BMI result Body Mass Index 22.8 Labs 07/23/25 05:48 07/23/25 05:48 Labs: Laboratory Results - last 48 hr 07/22/25 07/22/25 07/22/25 13:09 13:17 13:41 WBC 7.4 RBC 3.92 L Hgb 12.5 L Hct 36.2 L MCV 92.3 MCH 31.9 MCHC 34.5 RDW 16.3 H Plt Count 219 MPV 10.4 Immature Gran % (Auto) Cancelled Neut % (Auto) Cancelled Lymph % (Auto) Cancelled Durham % (Auto) Cancelled Eos % (Auto) Cancelled Baso % (Auto) Cancelled Lymph # (Auto) Cancelled [place] # (Auto) Cancelled Eos # (Auto) Cancelled Baso # (Auto) Cancelled Abs Immat Gran (auto) Cancelled Absolute Neuts (auto) Cancelled Absolute Nucleated RBC 0.000 Nucleated RBC % (auto) 0.0 Neutrophils % (Manual) 59 Band Neutrophils % 36 H Lymphocytes % (Manual) 2 L Atypical Lymphs % (Man) 2 Monocytes % (Manual) 1 L Eosinophils % (Manual) Abs Neuts (Manual) 7.0 Lymphocytes # (Manual) 0.1 L Atyp Lymphs # (Manual) 0.1 Monocytes # (Manual) 0.1 Eosinophils # (Manual) Toxic Vacuolation PRESENT Dohle Bodies Platelet Estimate NORMAL Large Platelets PRESENT Plt Morphology Comment NOTED RBC Morphology NOTED VBG pH VBG pCO2 VBG pO2 VBG HCO3 VBG O2 Saturation VBG Base Excess Sodium 142 Potassium 4.3 Chloride 106 Carbon Dioxide 25 Anion Gap 15 BUN 42 H Creatinine 1.37 Estim Creat Clear Calc TNP Estimated GFR 52 Random Glucose 141 H Lactic Acid 2.9 H* Lactic Acid F/U @ 2Hr Lactic Acid F/U @ 4Hr Calcium 9.8 Phosphorus 2.7 Magnesium 2.0 Total Bilirubin 0.4 AST 30 ALT 10 Alkaline Phosphatase 97 NT-Pro-B Natriuret Pep 947.3 H Total Protein 7.1 Albumin 3.7 Urine Color Urine Appearance Urine pH Ur Specific Carnegie Urine Protein Urine Glucose (UA) Urine Ketones Urine Blood Urine Nitrite Ur Leukocyte Esterase Urine RBC Urine WBC Ur Squamous Epith Cells Urine Bacteria Hyaline Casts Stl C. cayetanensis PCR Not Detected Stool Rotavirus A PCR Not Detected Stl Adenov F 40/41 PCR Not Detected Stool Astrovirus (PCR) Not Detected Stool Campylobacter PCR Not Detected Stool Cryptosporidium PCR Not Detected Stl Sh Tox Pr E STEC PCR Not Detected Stool E coli O157 PCR Not applicable Stl Enterotoxigenic E PCR Not Detected Stool EPEC (PCR) Not Detected Stool EAEC (PCR) Not Detected Stl E. histolytica PCR Not Detected Stool Giardia Lamblia PCR Not Detected Stl P. shigelloides PCR Not Detected Stool Salmonella PCR Not Detected Stool Sapovirus (PCR) Not Detected Stl Shigella/EIEC PCR Not Detected St Y.enterocolitica PCR Not Detected Stool Vibrio (PCR) Not Detected Stl Vibrio cholerae PCR Not Detected Stl Norovirus GI/GII PCR Not Detected C. difficile Tox B Gene NEGATIVE 07/22/25 07/22/25 07/22/25 15:45 18:09 19:52 WBC RBC Hgb Hct MCV MCH MCHC RDW Plt Count MPV Immature Gran % (Auto) Neut % (Auto) Lymph % (Auto) Durham % (Auto) Eos % (Auto) Baso % (Auto) Lymph # (Auto) Durham # (Auto) Eos # (Auto) Baso # (Auto) Abs Immat Gran (auto) Absolute Neuts (auto) Absolute Nucleated RBC Nucleated RBC % (auto) Neutrophils % (Manual) Band Neutrophils % Lymphocytes % (Manual) Atypical Lymphs % (Man) Monocytes % (Manual) Eosinophils % (Manual) Abs Neuts (Manual) Lymphocytes # (Manual) Atyp Lymphs # (Manual) Monocytes # (Manual) Eosinophils # (Manual) Toxic Vacuolation Dohle Bodies Platelet Estimate Large Platelets Plt Morphology Comment RBC Morphology VBG pH VBG pCO2 VBG pO2 VBG HCO3 VBG O2 Saturation VBG Base Excess Sodium Potassium Chloride Carbon Dioxide Anion Gap BUN Creatinine Estim Creat Clear Calc Estimated GFR Random Glucose Lactic Acid Lactic Acid F/U @ 2Hr 2.5 H* Lactic Acid F/U @ 4Hr 2.6 H* Calcium Phosphorus Magnesium Total Bilirubin AST ALT Alkaline Phosphatase NT-Pro-B Natriuret Pep Total Protein Albumin Urine Color Yellow Urine Appearance Clear Urine pH 6.5 Ur Specific Carnegie 1.015 Urine Protein Trace Urine Glucose (UA) Negative Urine Ketones Negative Urine Blood Negative Urine Nitrite Negative Ur Leukocyte Esterase Small (1+) H Urine RBC 0-2 Urine WBC 0-5 Ur Squamous Epith Cells 0-2 Urine Bacteria None Seen Hyaline Casts 0-2 Stl C. cayetanensis PCR Stool Rotavirus A PCR Stl Adenov F 40/41 PCR Stool Astrovirus (PCR) Stool Campylobacter PCR Stool Cryptosporidium PCR Stl Sh Tox Pr E STEC PCR Stool E coli O157 PCR Stl Enterotoxigenic E PCR Stool EPEC (PCR) Stool EAEC (PCR) Stl E. histolytica PCR Stool Giardia Lamblia PCR Stl P. shigelloides PCR Stool Salmonella PCR Stool Sapovirus (PCR) Stl Shigella/EIEC PCR St Y.enterocolitica PCR Stool Vibrio (PCR) Stl Vibrio cholerae PCR Stl Norovirus GI/GII PCR C. difficile Tox B Gene 07/23/25 07/23/25 05:48 05:53 WBC 6.6 RBC 2.82 L D Hgb 9.0 L D Hct 25.7 L D MCV 91.1 MCH 31.9 MCHC 35.0 RDW 16.1 H Plt Count 203 MPV 10.4 Immature Gran % (Auto) Cancelled Neut % (Auto) Cancelled Lymph % (Auto) Cancelled [place] % (Auto) Cancelled Eos % (Auto) Cancelled Baso % (Auto) Cancelled Lymph # (Auto) Cancelled [place] # (Auto) Cancelled Eos # (Auto) Cancelled Baso # (Auto) Cancelled Abs Immat Gran (auto) Cancelled Absolute Neuts (auto) Cancelled Absolute Nucleated RBC 0.000 Nucleated RBC % (auto) 0.0 Neutrophils % (Manual) 71 Band Neutrophils % 22 H Lymphocytes % (Manual) 2 L Atypical Lymphs % (Man) Monocytes % (Manual) 4 Eosinophils % (Manual) 1 Abs Neuts (Manual) 6.1 Lymphocytes # (Manual) 0.1 L Atyp Lymphs # (Manual) Monocytes # (Manual) 0.3 Eosinophils # (Manual) 0.1 Toxic Vacuolation Dohle Bodies PRESENT Platelet Estimate NORMAL Large Platelets Plt Morphology Comment NORMAL RBC Morphology NORMAL VBG pH 7.59 H VBG pCO2 31 VBG pO2 68 VBG HCO3 30 H VBG O2 Saturation 96.0 VBG Base Excess 8.4 Sodium 148 H Potassium 3.3 D Chloride 110 H Carbon Dioxide 27 Anion Gap 14 BUN 40 H Creatinine 1.20 Estim Creat Clear Calc 61.9 Estimated GFR > 60 Random Glucose 124 H Lactic Acid Lactic Acid F/U @ 2Hr Lactic Acid F/U @ 4Hr Calcium 9.3 Phosphorus 2.8 Magnesium 1.9 Total Bilirubin 0.6 AST 22 ALT 7 Alkaline Phosphatase 51 NT-Pro-B Natriuret Pep Total Protein 6.3 L Albumin 4.0 Urine Color Urine Appearance Urine pH Ur Specific Carnegie Urine Protein Urine Glucose (UA) Urine Ketones Urine Blood Urine Nitrite Ur Leukocyte Esterase Urine RBC Urine WBC Ur Squamous Epith Cells Urine Bacteria Hyaline Casts Stl C. cayetanensis PCR Stool Rotavirus A PCR Stl Adenov F 40/41 PCR Stool Astrovirus (PCR) Stool Campylobacter PCR Stool Cryptosporidium PCR Stl Sh Tox Pr E STEC PCR Stool E coli O157 PCR Stl Enterotoxigenic E PCR Stool EPEC (PCR) Stool EAEC (PCR) Stl E. histolytica PCR Stool Giardia Lamblia PCR Stl P. shigelloides PCR Stool Salmonella PCR Stool Sapovirus (PCR) Stl Shigella/EIEC PCR St Y.enterocolitica PCR Stool Vibrio (PCR) Stl Vibrio cholerae PCR Stl Norovirus GI/GII PCR C. difficile Tox B Gene Mental Status Exam Mental Status Exam Narrative: Appearance: wearing casual clothing, fair hygiene, in NAD. Behavior: engaging, not unpleasant Psychomotor: no PMA/PMR Speech: clear, normal rate/rhythm/volume, spontaneous TP: organized TC: no delusions or paranoia expressed Mood: tired Affect: constricted SI: none expressed HI: none expressed VH/AH: none expressed Insight/judgment: impaired Memory/cog: oriented to person, time; oriented to place, month, situation. MOCA completed on 07/15/25: 22/30, ACL 3.2 Medications Medications Current Medications Acetaminophen (Acetaminophen 325 Mg Tablet) 650 mg PO Q6H PRN PRN Reason: Pain, Mild 1-3,fever,headache Albuterol/Ipratropium (Albuterol/Iprat 2.5/0.5mg 3 Ml Ampul.Neb) 3 ml INHALE Q4H PRN PRN Reason: Shortness of Breath/Wheezing Atorvastatin Calcium (Atorvastatin Calcium 40 Mg Tablet) 40 mg G-TUBE BEDTIME [facility] Last Admin: 07/22/25 23:27 Dose: Not Given Calcium Carbonate (Calcium Carbonate 750 Mg Tab.Chew) 750 mg PO Q4H PRN PRN Reason: Heartburn Clozapine (Clozapine 100 Mg Tablet) 200 mg G-TUBE DAILY@1700 [facility] Last Admin: 07/23/25 16:58 Dose: 200 mg Clozapine (Clozapine 25 Mg Tablet) 50 mg G-TUBE DAILY@1100 [facility] Last Admin: 07/23/25 11:14 Dose: 50 mg Enoxaparin Sodium (Enoxaparin Sodium 40 Mg/0.4 Ml Syringe) 40 mg SUBCUT Q24H [facility] Last Admin: 07/23/25 11:14 Dose: 40 mg Gabapentin (Gabapentin 300 Mg Capsule) 300 mg G-TUBE BEDTIME [facility] Last Admin: 07/22/25 23:27 Dose: Not Given Gabapentin (Gabapentin 100 Mg Capsule) 100 mg G-TUBE DAILY [facility] Last Admin: 07/23/25 07:53 Dose: 100 mg Haloperidol (Haloperidol 1 Mg Tablet) 2 mg G-TUBE BID PRN PRN Reason: Agitation Haloperidol (Haloperidol 1 Mg Tablet) 1 mg G-TUBE DAILY [facility] Last Admin: 07/23/25 07:53 Dose: 1 mg Haloperidol (Haloperidol 1 Mg Tablet) 3 mg G-TUBE BEDTIME [facility] Last Admin: 07/22/25 23:27 Dose: Not Given Piperacillin Sod/Tazobactam (Sod 4.5 gm/ Sodium Chloride) 100 mls @ 200 mls/hr IV Q6H [facility] Last Infusion: 07/23/25 13:51 Dose: Infused Norepinephrine Bitartrate (Levophed) 32 mg in 250 mls @ 0 mls/hr IVCONT .Q0M [facility]; Protocol Last Titration: 07/23/25 14:17 Dose: 0 mcg/kg/min, 0 mls/hr Magnesium Hydroxide (Milk Of Magnesia 30 Ml Oral.Susp) 30 ml PO DAILY PRN PRN Reason: Constipation Melatonin (Melatonin 3 Mg Tablet) 6 mg PO BEDTIME PRN PRN Reason: Insomnia Ondansetron HCl (Ondansetron Hcl 4 Mg/2 Ml Vial) 4 mg IVPUSH Q8H PRN PRN Reason: Vomiting Pantoprazole Sodium (Pantoprazole Sodium 40 Mg/10 Ml Vial) 40 mg IVPUSH DAILY@0630 [facility] Last Admin: 07/23/25 06:12 Dose: 40 mg Sodium Chloride (0.9 % Sodium Chloride Flush 3 Ml Syringe) 3 ml IVFLUSH QSHIFT [facility] Last Admin: 07/23/25 16:58 Dose: 3 ml Trazodone HCl (Trazodone Hcl 50 Mg Tablet) 150 mg G-TUBE BEDTIME [facility] Last Admin: 07/22/25 23:28 Dose: Not Given Valproic Acid (Valproic Acid Liquid 250 Mg/5 Ml Solution) 1,000 mg G-TUBE BID@1100,1700 [facility] Last Admin: 07/23/25 16:58 Dose: 1,000 mg Allergies Allergies Allergy/AdvReac Type Severity Reaction Status Date / Time morphine Allergy Itching Verified 07/22/25 15:46 Assessment & Plan Assessment & Plan (1) Schizophrenia: Qualifiers: Schizophrenia type: unspecified Qualified Code(s): F20.9 - Schizophrenia, unspecified Status: Acute Code(s): F20.9 - Schizophrenia, unspecified Plan Mr. Raymundo is a 70 year-old male with hx of schizophrenia who was transferred to ICU in setting of aspiration pneumonia and sepsis. Pt presents with some degree of paranoid ideas which are baseline. No SI/HI. He is taking medications as prescribed. He does not need to return to psych unit. once medically clear, he can be step down to LTC/SNF. Total time managing care of this patient today ____ minutes.
--- NOTE | 2025-07-23 17:12 | PM.EVENT ---
Event Note Date of Service: 07/23/25 Event Note: Patient of [facility], is being transferred to regular medical floor Patient would need care assessment tomorrow and transferred back to geriatric psych floor Time Spent With Patient Time: Total time managing care of this patient today ____ minutes.
--- NOTE | 2025-07-24 02:48 | PC.NURSE ---
TLC in left groin removed , blue tip of catheter intact. Patient tolerated well. VSS Report given to Med/supervisor telephone clerks . Patient transferred.
[2025-07-24 03:34] VITALS: BP 133/71; PULSE 76; RESP 16; TEMP 36.2; O2SAT 96
--- NOTE | 2025-07-24 03:37 | PC.NURSE ---
Left femoral TLC removed blue catheter tip intact. VSS , patient tolerated well. Report given to Med /general car yard supervisor . Patient transferred to floor.
[2025-07-24 05:35] VITALS: BMI 23.0
--- NOTE | 2025-07-24 07:19 | P.PNIM_ITS ---
Subjective Subjective Date of Service: 07/24/25 Interval History: Pt is persitant psychiatric paranoid delusions No longer septic will resume [facility] and CARE team evaluated and do not believe he needs psych anymore This is now a placement issue-, complex placement even prior to coming to medicine, will be challenging to place Review of Systems Review of Systems: Yes Unobtainable due to mental condition and Unobtainable due to mental status Physical Exam 2 Exam: Exam: General: A&O times 0, severe paranoid delusions Resp: CTA bilaterally CVS: S1, S2, RRR GI: G-tube present, area CDI Neuro: Grossly intact, however difficult to follow directions hence unable to complete a full neuro exam Psych: Per psych who has seen the patient and manage the patient for greater than 1 month, he has had similar paranoid delusions ?My brother is going to kill me , psych team did not treatment well I do not want to go back Vital Signs: Vital Signs: Last Vital Signs Temp 97.2 F 07/24/25 03:34 Pulse 76 07/24/25 03:34 Resp 16 07/24/25 03:34 BP 133/71 07/24/25 03:34 Pulse Ox 96 07/24/25 03:34 O2 Del Method Room Air 07/24/25 03:34 O2 Flow Rate 4 07/23/25 11:00 FiO2 55 07/22/25 19:00 Oxygen Flow Rate 50 07/22/25 12:40 BMI result Body Mass Index 23.0 Objective Data Active Medications Acetaminophen (Acetaminophen 325 Mg Tablet) 650 mg PO Q6H PRN PRN Reason: Pain, Mild 1-3,fever,headache Last Admin: 07/24/25 03:53 Dose: 650 mg Documented By: KASSANDRA Albuterol/Ipratropium (Albuterol/Iprat 2.5/0.5mg 3 Ml Ampul.Neb) 3 ml INHALE Q4H PRN PRN Reason: Shortness of Breath/Wheezing Atorvastatin Calcium (Atorvastatin Calcium 40 Mg Tablet) 40 mg G-TUBE BEDTIME CLAUDIA Last Admin: 07/23/25 20:24 Dose: 40 mg Documented By: MIGNON Calcium Carbonate (Calcium Carbonate 750 Mg Tab.Chew) 750 mg PO Q4H PRN PRN Reason: Heartburn Clozapine (Clozapine 100 Mg Tablet) 200 mg G-TUBE DAILY@1700 COUNTS INCLUDE 234 BEDS AT THE [facility] Last Admin: 07/23/25 16:58 Dose: 200 mg Documented By: LENNY Clozapine (Clozapine 25 Mg Tablet) 50 mg G-TUBE DAILY@1100 COUNTS INCLUDE 234 BEDS AT THE [facility] Last Admin: 07/23/25 11:14 Dose: 50 mg Documented By: MARK Enoxaparin Sodium (Enoxaparin Sodium 40 Mg/0.4 Ml Syringe) 40 mg SUBCUT Q24H COUNTS INCLUDE 234 BEDS AT THE [facility] Last Admin: 07/23/25 11:14 Dose: 40 mg Documented By: MARK Gabapentin (Gabapentin 300 Mg Capsule) 300 mg G-TUBE BEDTIME COUNTS INCLUDE 234 BEDS AT THE [facility] Last Admin: 07/23/25 20:24 Dose: 300 mg Documented By: MIGNON Gabapentin (Gabapentin 100 Mg Capsule) 100 mg G-TUBE DAILY COUNTS INCLUDE 234 BEDS AT THE [facility] Last Admin: 07/23/25 07:53 Dose: 100 mg Documented By: MARK Haloperidol (Haloperidol 1 Mg Tablet) 2 mg G-TUBE BID PRN PRN Reason: Agitation Haloperidol (Haloperidol 1 Mg Tablet) 1 mg G-TUBE DAILY COUNTS INCLUDE 234 BEDS AT THE [facility] Last Admin: 07/23/25 07:53 Dose: 1 mg Documented By: MARK Haloperidol (Haloperidol 1 Mg Tablet) 3 mg G-TUBE BEDTIME COUNTS INCLUDE 234 BEDS AT THE [facility] Last Admin: 07/23/25 20:24 Dose: 3 mg Documented By: MIGNON Piperacillin Sod/Tazobactam (Sod 4.5 gm/ Sodium Chloride) 100 mls @ 200 mls/hr IV Q6H COUNTS INCLUDE 234 BEDS AT THE [facility] Last Admin: 07/24/25 06:37 Dose: 200 mls/hr Documented By: KASSANDRA Magnesium Hydroxide (Milk Of Magnesia 30 Ml Oral.Susp) 30 ml PO DAILY PRN PRN Reason: Constipation Melatonin (Melatonin 3 Mg Tablet) 6 mg PO BEDTIME PRN PRN Reason: Insomnia Ondansetron HCl (Ondansetron Hcl 4 Mg/2 Ml Vial) 4 mg IVPUSH Q8H PRN PRN Reason: Vomiting Pantoprazole Sodium (Pantoprazole Sodium 40 Mg/10 Ml Vial) 40 mg IVPUSH DAILY@0630 COUNTS INCLUDE 234 BEDS AT THE [facility] Last Admin: 07/24/25 05:31 Dose: 40 mg Documented By: KASSANDRA Sodium Chloride (0.9 % Sodium Chloride Flush 3 Ml Syringe) 3 ml IVFLUSH QSHIFT COUNTS INCLUDE 234 BEDS AT THE [facility] Last Admin: 07/23/25 20:21 Dose: 3 ml Documented By: KASSANDRA Trazodone HCl (Trazodone Hcl 50 Mg Tablet) 150 mg G-TUBE BEDTIME COUNTS INCLUDE 234 BEDS AT THE [facility] Last Admin: 07/23/25 20:24 Dose: 150 mg Documented By: MIGNON Valproic Acid (Valproic Acid Liquid 250 Mg/5 Ml Solution) 1,000 mg G-TUBE BID@1100,1700 COUNTS INCLUDE 234 BEDS AT THE [facility] Last Admin: 07/23/25 16:58 Dose: 1,000 mg Documented By: LENNY Labs 07/23/25 05:48 07/23/25 05:48 Labs: Laboratory Results - last 24 hr 07/23/25 05:48 Neutrophils % (Manual) 71 Band Neutrophils % 22 H Lymphocytes % (Manual) 2 L Monocytes % (Manual) 4 Eosinophils % (Manual) 1 Abs Neuts (Manual) 6.1 Lymphocytes # (Manual) 0.1 L Monocytes # (Manual) 0.3 Eosinophils # (Manual) 0.1 Dohle Bodies PRESENT Platelet Estimate NORMAL Plt Morphology Comment NORMAL RBC Morphology NORMAL Microbiology Microbiology Results: Microbiology 07/22/25 13:17 Blood Culture - Preliminary Blood - Venous No growth after 24 hours. 07/22/25 13:17 Blood Culture - Preliminary Blood - Venous No growth after 24 hours. Assessment and Plan (1) Chronic pulmonary aspiration: Status: Acute Plan 70-year-old male admitted here after a prolonged 8 week hospitalization. Patient continued with suicidal ideation throughout the hospital stay therefore discharged here to inpatient [facility] for further treatment Schizoaffective disorder on clozapine. Recently readmitted to [facility] after medical stay where he was found to have severe sleep apnea. [facility] psych has been trying to find a placement for him for the entire duration of hospitalization. Patient aspirated after ?comfort feed of 1 tbsp of vanilla pudding?, needed pressors briefly in the ICU as of 07/23/2025, has been off pressors and is being transitioned to medical floor as [facility] and care team deemed him not a candidate for their team back, even though he has been on their team for nearly 2 months. Essentially ?placement , which is going to be challenging Aspiration pneumonia - after a comfort feed of 1 tbsp of vanilla pudding Dysphagia and history of aspiration Patient with a tube feeding vital 1.5 at 85 mL/hour for 16 hours on as 18:00 off at 10:00. Free water flush 240 mg L every 4 hours Patient is at risk for aspiration. Out of bed for all meals, HOB elevated 30-45 degrees at all times. Patient did have repeat barium swallow in-hospital in May 2025 which demonstrated some improvement from previous, however he was still aspirating. Patient has a long history of dysphagia and swallowing studies and he is likely to be continued risk for aspiration and unlikely to be nutritional needs on a full p.o. diet. Patient was given p.o. intake for pleasure. He has been given ice cream and puddings in the hospital, he is aware of the risks of aspiration and is willing to accept that risk as he wants to eat soft foods. Psychiatry unsure whether patient fully understands the manifestations of risks of p.o. intake. Patient has invoked healthcare proxy Patient had one ounce of pudding and some ice chips on July 20 with speech therapy. Status post brief ICU stay for pressor support in the setting of aspiration pneumonia for a day and [facility] and care team deemed the patient not needing their services and hence being placed on medicine team for placement which is going to be challenging. Patient is going to be strict NPO Feeds and NG tube meds only be through G-tube We will switch IV antibiotics to G-tube Augmentin for 7 days total Undiagnosed LOUANN Nebulizing updrafts, O2 Use p.r.n. CPAP as needed Schizoaffective disorder/depression Per psych team, he is on his medication not needing any adjustments and hence do not have any active management to offer. But they are happy to be consulted as needed, which we appreciate. Disposition :Placement for this patient is exceptionally complex due to severe and persistent paranoid delusions that render them unable to cooperate with care. The patient views caregivers and staff with suspicion and distrust, leading to refusal of medication, verbal aggression, and an inability to participate in routine care. These behaviors pose significant safety risks and have made it difficult to find a long-term care setting equipped to manage their high-acuity psychiatric needs. The primary challenge is establishing a safe, therapeutic environment that can accommodate their profound distrust while ensuring their well-being and managing the complex legal and ethical considerations of their impaired capacity This note is constructed using voice recognition software. While every effort has been made to ensure accuracy, supervisor special effects errors may have been included. Quality Stroke Does the patient have a stroke diagnosis?: No VTE Prior VTE?: No VTE Risk Level:: Medical - moderate - high VTE Device Contraindication: Treatment Not Indicated VTE Drug Contraindication: N/A - Med Ordered
[2025-07-24 08:00] VITALS: BP 149/70; PULSE 71; RESP 17; TEMP 36.9; O2SAT 97
[2025-07-24] MEDS: 0.9 % Sodium Chloride Flush 3 ML SYRINGE IVFLUSH ×2 (08:17→16:04)
--- NOTE | 2025-07-24 09:16 | MHC.SPEECHCO ---
07/22 patient febrile w/ oxygen desaturation in 80's, chest CT showing multifocal aspiration pneumonia. Patient transferred from [facility] to the ICU and has since stepped down to med tele and weaned off supplemental 02. Patient continues as NPO strict, per MD, stopped pleasure feeds unless code status is changed to DNI. UPHOLSTERY INSTRUCTOR consult on hold.
[2025-07-24] MEDS: Valproic Acid Liquid 250 MG/5 ML SOLUTION 1000 MG G-TUBE ×2 (11:49→16:04)
[2025-07-24 12:00] VITALS: BP 169/83; PULSE 82; RESP 16; TEMP 36.7; O2SAT 97
--- NOTE | 2025-07-24 12:04 | MHC.CLN ---
F/U PT TRANSFERRED TO MEDICAL FLOOR FROM ICU PT IS DAY 2 NPO FAMILIAR WITH PT FROM [facility] TRANSF[facility] PT RECEIVES NUTRITION VIA PEG TUBE FEEDING (PREVIOUSLY ON VITAL 1.5 FORMULA) RECOMMEND TF OSMOLITE 1.5 AT MAX GOAL RATE 60ML/HR WITH 300ML FREE WATER FLUSHES Q 6 HRS TO PROVIDE 2160KCALS (29KCALS/KG), 90G PROTEIN (1.2G/KG), 2297ML TOTAL WATER FROM FORMULA AND FLUSHES (31ML/KG) MONITOR TOLERANCE AND LYTES FOLLOWING FOR DIET ADVANCEMENT
--- NOTE | 2025-07-24 15:17 | MHC.CM.PN ---
EMR REVIEWED AND PER MD ROUNDS, PT IS MEDICALLY CLEARED FOR DISCHARGE. PER CHART REVIEW, PT WAS HOSPITALIZED AT [facility] FROM 04/15 UNTIL HE WAS TRANSPORT TO [facility] EARLY JUN. THIS IS PTS SECOND MEDICAL ADMISSION FROM PSYCH UNIT. PTS BROTHER/HCP DANIEL HAS GIVEN UP PTS BED AT THE [facility], AND WOULD LIKE HIM TO GO TO [facility] NEAR [place] OR [place]. PT ALLEGEDLY HAS PRIVATE PAY FUNDS. REFERRAL SENT TO [facility]. CARE TEAM EVAL PENDING. THIS CM MET WITH PT AT HIS REQUEST, PT ENDORSES PARANOIA, STATING MY BROTHER IS INTENT ON MURDERING ME . PT ALSO STATED I MANAGED TO ESCAPE FROM THE FIRST FLOOR. THIS CM WAS UNABLE TO CONTINUE WITH A PRODUCTIVE CONVERSATION WITH PT DESPITE BEST EFFORTS. PT CONTINUES WITH 1:1 STAFF MONITORING. DCP: ? RETURN TO INPT PSYCH LOC VS LTC IF CARE TEAM DECIDES PT NO LONGER NEED INPT PSYCH LOC.
[2025-07-24 15:58] VITALS: BP 169/82; PULSE 71; RESP 18; TEMP 36.2; O2SAT 94
[2025-07-24 19:08] VITALS: BP 117/60; PULSE 85; RESP 17; TEMP 36.9; O2SAT 98
[2025-07-24] MEDS: Amoxicillin/Potassium Clav 4,000 MG/50 ML SUSP.RECON 875 MG G-TUBE (21:00)
[2025-07-24 23:57] VITALS: BP 117/67; PULSE 81; RESP 17; TEMP 36.3; O2SAT 97
[2025-07-25 06:00] VITALS: BMI 23.1
--- NOTE | 2025-07-25 07:19 | HO.PM.IMPN ---
Subjective Subjective Date of Service: 07/25/25 Interval History: similar paranoid delusions redemostrated Review of Systems Review of Systems: Yes Unobtainable due to mental condition and Unobtainable due to mental status Physical Exam Exam: Exam: General: A&O times 0, severe paranoid delusions Resp: CTA bilaterally CVS: S1, S2, RRR GI: G-tube present, area CDI Neuro: Grossly intact, however difficult to follow directions hence unable to complete a full neuro exam Psych: Per psych who has seen the patient and manage the patient for greater than 1 month, he has had similar paranoid delusions I saw you yesterday I want to know where I'm gonna go Vital Signs: Vital Signs: Last Vital Signs Temp 97.4 F 07/24/25 23:57 Pulse 81 07/24/25 23:57 Resp 17 07/24/25 23:57 BP 117/67 07/24/25 23:57 Pulse Ox 97 07/24/25 23:57 O2 Del Method Room Air 07/24/25 23:57 O2 Flow Rate 4 07/23/25 11:00 FiO2 55 07/22/25 19:00 Oxygen Flow Rate 50 07/22/25 12:40 BMI result Body Mass Index 23.1 Objective Data Active Medications Acetaminophen (Acetaminophen 325 Mg Tablet) 650 mg PO Q6H PRN PRN Reason: Pain, Mild 1-3,fever,headache Last Admin: 07/24/25 18:32 Dose: 650 mg Documented By: WARREN Albuterol/Ipratropium (Albuterol/Iprat 2.5/0.5mg 3 Ml Ampul.Neb) 3 ml INHALE Q4H PRN PRN Reason: Shortness of Breath/Wheezing Amoxicillin/Clavulanate Potassium (Amoxicillin/Potassium Clav 4,000 Mg/50 Ml Susp.Recon) 875 mg G-TUBE BID CLAUDIA Stop: 07/31/25 20:59 Last Admin: 07/24/25 21:00 Dose: 875 mg Documented By: SUE Atorvastatin Calcium (Atorvastatin Calcium 40 Mg Tablet) 40 mg G-TUBE BEDTIME CLAUDIA Last Admin: 07/24/25 20:03 Dose: 40 mg Documented By: SUE Calcium Carbonate (Calcium Carbonate 750 Mg Tab.Chew) 750 mg PO Q4H PRN PRN Reason: Heartburn Clozapine (Clozapine 100 Mg Tablet) 200 mg G-TUBE DAILY@1700 COUNTS INCLUDE 234 BEDS AT THE [facility] Last Admin: 07/24/25 16:04 Dose: 200 mg Documented By: WARREN Clozapine (Clozapine 25 Mg Tablet) 50 mg G-TUBE DAILY@1100 COUNTS INCLUDE 234 BEDS AT THE [facility] Last Admin: 07/24/25 11:49 Dose: 50 mg Documented By: WARREN Enoxaparin Sodium (Enoxaparin Sodium 40 Mg/0.4 Ml Syringe) 40 mg SUBCUT Q24H COUNTS INCLUDE 234 BEDS AT THE [facility] Last Admin: 07/24/25 11:50 Dose: 40 mg Documented By: WARREN Gabapentin (Gabapentin 300 Mg Capsule) 300 mg G-TUBE BEDTIME COUNTS INCLUDE 234 BEDS AT THE [facility] Last Admin: 07/24/25 20:03 Dose: 300 mg Documented By: SUE Gabapentin (Gabapentin 100 Mg Capsule) 100 mg G-TUBE DAILY COUNTS INCLUDE 234 BEDS AT THE [facility] Last Admin: 07/24/25 08:17 Dose: 100 mg Documented By: WARREN Haloperidol (Haloperidol 1 Mg Tablet) 2 mg G-TUBE BID PRN PRN Reason: Agitation Haloperidol (Haloperidol 1 Mg Tablet) 1 mg G-TUBE DAILY COUNTS INCLUDE 234 BEDS AT THE [facility] Last Admin: 07/24/25 08:17 Dose: 1 mg Documented By: WARREN Haloperidol (Haloperidol 1 Mg Tablet) 3 mg G-TUBE BEDTIME COUNTS INCLUDE 234 BEDS AT THE [facility] Last Admin: 07/24/25 20:03 Dose: 3 mg Documented By: SUE Magnesium Hydroxide (Milk Of Magnesia 30 Ml Oral.Susp) 30 ml PO DAILY PRN PRN Reason: Constipation Melatonin (Melatonin 3 Mg Tablet) 6 mg PO BEDTIME PRN PRN Reason: Insomnia Ondansetron HCl (Ondansetron Hcl 4 Mg/2 Ml Vial) 4 mg IVPUSH Q8H PRN PRN Reason: Vomiting Pantoprazole Sodium (Pantoprazole Sodium 40 Mg/10 Ml Vial) 40 mg IVPUSH DAILY@0630 COUNTS INCLUDE 234 BEDS AT THE [facility] Sodium Chloride (0.9 % Sodium Chloride Flush 3 Ml Syringe) 3 ml IVFLUSH QSHIFT COUNTS INCLUDE 234 BEDS AT THE [facility] Last Admin: 07/25/25 04:30 Dose: Not Given Documented By: SUE Non-Admin Reason: Patient Asleep Trazodone HCl (Trazodone Hcl 50 Mg Tablet) 150 mg G-TUBE BEDTIME COUNTS INCLUDE 234 BEDS AT THE [facility] Last Admin: 07/24/25 20:03 Dose: 150 mg Documented By: SUE Valproic Acid (Valproic Acid Liquid 250 Mg/5 Ml Solution) 1,000 mg G-TUBE BID@1100,1700 CLAUDIA Last Admin: 07/24/25 16:04 Dose: 1,000 mg Documented By: MALLORYYM Labs 07/23/25 05:48 07/23/25 05:48 Microbiology Microbiology Results: Microbiology 07/22/25 13:17 Blood Culture - Preliminary Blood - Venous No growth after 48 hours. 07/22/25 13:17 Blood Culture - Preliminary Blood - Venous No growth after 48 hours. Assessment and Plan (1) Chronic pulmonary aspiration: Status: Acute Plan 70-year-old male admitted here after a prolonged 8 week hospitalization. Patient continued with suicidal ideation throughout the hospital stay therefore discharged here to inpatient [facility] for further treatment Schizoaffective disorder on clozapine. Recently readmitted to [facility] after medical stay where he was found to have severe sleep apnea. [facility] has been trying to find a placement for him for the entire duration of hospitalization. Patient aspirated after ?comfort feed of 1 tbsp of vanilla pudding?, needed pressors briefly in the ICU as of 07/23/2025, has been off pressors and is being transitioned to medical floor as [facility] and care team deemed him not a candidate for their team back, even though he has been on their team for nearly 2 months. Essentially ?placement , which is going to be challenging Aspiration pneumonia - after a comfort feed of 1 tbsp of vanilla pudding Dysphagia and history of aspiration Patient with a tube feeding vital 1.5 at 85 mL/hour for 16 hours on as 18:00 off at 10:00. Free water flush 240 mg L every 4 hours Patient is at risk for aspiration. Out of bed for all meals, HOB elevated 30-45 degrees at all times. Patient did have repeat barium swallow in-hospital in May 2025 which demonstrated some improvement from previous, however he was still aspirating. Patient has a long history of dysphagia and swallowing studies and he is likely to be continued risk for aspiration and unlikely to be nutritional needs on a full p.o. diet. Patient was given p.o. intake for pleasure. He has been given ice cream and puddings in the hospital, he is aware of the risks of aspiration and is willing to accept that risk as he wants to eat soft foods. Psychiatry unsure whether patient fully understands the manifestations of risks of p.o. intake. Patient has invoked healthcare proxy Patient had one ounce of pudding and some ice chips on July 20 with speech therapy. Status post brief ICU stay for pressor support in the setting of aspiration pneumonia for a day and [facility] and care team deemed the patient not needing their services and hence being placed on medicine team for placement which is going to be challenging. Patient is going to be strict NPO Feeds and NG tube meds only be through G-tube We will switch IV antibiotics to G-tube Augmentin for 7 days total Undiagnosed LOUANN Nebulizing updrafts, O2 Use p.r.n. CPAP as needed Schizoaffective disorder/depression Per psych team, he is on his medication not needing any adjustments and hence do not have any active management to offer. But they are happy to be consulted as needed, which we appreciate. Disposition :Placement for this patient is exceptionally complex due to severe and persistent paranoid delusions that render them unable to cooperate with care. The patient views caregivers and staff with suspicion and distrust, leading to refusal of medication, verbal aggression, and an inability to participate in routine care. These behaviors pose significant safety risks and have made it difficult to find a long-term care setting equipped to manage their high-acuity psychiatric needs. The primary challenge is establishing a safe, therapeutic environment that can accommodate their profound distrust while ensuring their well-being and managing the complex legal and ethical considerations of their impaired capacity This note is constructed using voice recognition software. While every effort has been made to ensure accuracy, senior licensing manager errors may have been included. Quality Stroke Does the patient have a stroke diagnosis?: No VTE Prior VTE?: No VTE Risk Level:: Medical - moderate - high VTE Device Contraindication: Treatment Not Indicated VTE Drug Contraindication: N/A - Med Ordered
[2025-07-25 07:53] VITALS: BP 141/68; PULSE 83; RESP 20; TEMP 36.7; O2SAT 97
[2025-07-25] MEDS: Amoxicillin/Potassium Clav 4,000 MG/50 ML SUSP.RECON 875 MG G-TUBE ×2 (09:42→21:01)
[2025-07-25] MEDS: Valproic Acid Liquid 250 MG/5 ML SOLUTION 1000 MG G-TUBE ×2 (09:42→15:45)
[2025-07-25] MEDS: 0.9 % Sodium Chloride Flush 3 ML SYRINGE IVFLUSH ×3 (09:43→21:02)
[2025-07-25 11:07] VITALS: BP 133/77; PULSE 85; RESP 18; TEMP 36.7; O2SAT 97
[2025-07-25 15:25] VITALS: BP 156/75; PULSE 89; RESP 18; TEMP 37.1; O2SAT 98
[2025-07-25 19:47] VITALS: BP 130/70; PULSE 81; RESP 18; TEMP 36.7; O2SAT 98
[2025-07-25 23:58] VITALS: BP 139/72; PULSE 75; RESP 18; TEMP 36.9; O2SAT 95
[2025-07-26 03:33] VITALS: BP 139/72; PULSE 70; RESP 17; TEMP 36.7; O2SAT 97
--- NOTE | 2025-07-26 04:02 | PC.NURSE ---
Phone report called to Clementina [facility]KS M/S and pt. transferred to M/S w/ live at this time.
[2025-07-26 06:00] VITALS: BMI 23.4
[2025-07-26 07:12] VITALS: BP 135/70; PULSE 67; RESP 14; TEMP 36.2; O2SAT 96
--- NOTE | 2025-07-26 07:26 | HO.PM.IMPN ---
Subjective Subjective Date of Service: 07/26/25 Interval History: similar paranoid delusions redemostrated rectal tube removed yesterday Review of Systems Review of Systems: Yes Unobtainable due to mental condition and Unobtainable due to mental status Physical Exam Exam: Exam: General: A&O times 0, severe paranoid delusions Resp: CTA bilaterally CVS: S1, S2, RRR GI: G-tube present, area CDI Neuro: Grossly intact, however difficult to follow directions hence unable to complete a full neuro exam Psych: Per psych who has seen the patient and manage the patient for greater than 1 month, he has had similar paranoid delusions I saw you yesterday I want to know where I'm gonna go Vital Signs: Vital Signs: Last Vital Signs Temp 97.2 F 07/26/25 07:12 Pulse 67 07/26/25 07:12 Resp 14 07/26/25 07:12 BP 135/70 07/26/25 07:12 Pulse Ox 96 07/26/25 07:12 O2 Del Method Room Air 07/26/25 07:12 O2 Flow Rate 4 07/23/25 11:00 FiO2 55 07/22/25 19:00 Oxygen Flow Rate 50 07/22/25 12:40 BMI result Body Mass Index 23.4 Objective Data Active Medications Acetaminophen (Acetaminophen 325 Mg Tablet) 650 mg PO Q6H PRN PRN Reason: Pain, Mild 1-3,fever,headache Last Admin: 07/24/25 18:32 Dose: 650 mg Documented By: WARREN Acetaminophen (Acetaminophen 325 Mg Tablet) 975 mg G-TUBE TID [facility] Last Admin: 07/25/25 21:01 Dose: 975 mg Documented By: SUE Albuterol/Ipratropium (Albuterol/Iprat 2.5/0.5mg 3 Ml Ampul.Neb) 3 ml INHALE Q4H PRN PRN Reason: Shortness of Breath/Wheezing Amoxicillin/Clavulanate Potassium (Amoxicillin/Potassium Clav 4,000 Mg/50 Ml Susp.Recon) 875 mg G-TUBE BID [facility] Stop: 07/31/25 20:59 Last Admin: 07/25/25 21:01 Dose: 875 mg Documented By: SUE Atorvastatin Calcium (Atorvastatin Calcium 40 Mg Tablet) 40 mg G-TUBE BEDTIME [facility] Last Admin: 07/25/25 21:00 Dose: 40 mg Documented By: SUE Bisacodyl (Bisacodyl 10 Mg Supp.Rect) 10 mg [place] DAILY PRN PRN Reason: Constipation Calcium Carbonate (Calcium Carbonate 750 Mg Tab.Chew) 750 mg PO Q4H PRN PRN Reason: Heartburn Calcium Carbonate (Calcium Carbonate 750 Mg Tab.Chew) 750 mg G-TUBE TID PRN PRN Reason: Heartburn Capsaicin (Capsaicin 0.025% Cream 60 Gm Tube) 1 appl TOPICAL TID PRN; Protocol PRN Reason: Pain, Moderate(Pain Scale 4-6) Clozapine (Clozapine 100 Mg Tablet) 200 mg G-TUBE DAILY@1700 [facility] Last Admin: 07/25/25 15:44 Dose: 200 mg Documented By: ALLI Clozapine (Clozapine 25 Mg Tablet) 50 mg G-TUBE DAILY@1100 [facility] Last Admin: 07/25/25 09:42 Dose: 50 mg Documented By: ALLI Enoxaparin Sodium (Enoxaparin Sodium 40 Mg/0.4 Ml Syringe) 40 mg SUBCUT Q24H [facility] Last Admin: 07/25/25 13:04 Dose: 40 mg Documented By: ALLI Gabapentin (Gabapentin 300 Mg Capsule) 300 mg G-TUBE BEDTIME [facility] Last Admin: 07/25/25 21:01 Dose: 300 mg Documented By: SUE Gabapentin (Gabapentin 100 Mg Capsule) 100 mg G-TUBE DAILY [facility] Last Admin: 07/25/25 09:43 Dose: 100 mg Documented By: ALLI Haloperidol (Haloperidol 1 Mg Tablet) 2 mg G-TUBE BID PRN PRN Reason: Agitation Haloperidol (Haloperidol 1 Mg Tablet) 1 mg G-TUBE DAILY [facility] Last Admin: 07/25/25 09:42 Dose: 1 mg Documented By: ALLI Haloperidol (Haloperidol 1 Mg Tablet) 3 mg G-TUBE BEDTIME [facility] Last Admin: 07/25/25 21:00 Dose: 3 mg Documented By: SUE Magnesium Hydroxide (Milk Of Magnesia 30 Ml Oral.Susp) 30 ml PO DAILY PRN PRN Reason: Constipation Melatonin (Melatonin 3 Mg Tablet) 6 mg PO BEDTIME PRN PRN Reason: Insomnia Ondansetron HCl (Ondansetron Hcl 4 Mg/2 Ml Vial) 4 mg IVPUSH Q8H PRN PRN Reason: Vomiting Pantoprazole Sodium (Pantoprazole Sodium 40 Mg/10 Ml Vial) 40 mg IVPUSH DAILY@0630 [facility] Last Admin: 07/26/25 06:15 Dose: 40 mg Documented By: HELADIO Sodium Chloride (0.9 % Sodium Chloride Flush 3 Ml Syringe) 3 ml IVFLUSH QSHIFT [facility] Last Admin: 07/25/25 21:02 Dose: 3 ml Documented By: SUE Trazodone HCl (Trazodone Hcl 50 Mg Tablet) 150 mg G-TUBE BEDTIME [facility] Last Admin: 07/25/25 21:02 Dose: 150 mg Documented By: SUE Valproic Acid (Valproic Acid Liquid 250 Mg/5 Ml Solution) 1,000 mg G-TUBE BID@1100,1700 [facility] Last Admin: 07/25/25 15:45 Dose: 1,000 mg Documented By: [facility] 07/23/25 05:48 07/23/25 05:48 Assessment and Plan (1) Chronic pulmonary aspiration: Status: Acute Plan 70-year-old male admitted here after a prolonged 8 week hospitalization. Patient continued with suicidal ideation throughout the hospital stay therefore discharged here to inpatient [facility] for further treatment Schizoaffective disorder on clozapine. Recently readmitted to [facility] after medical stay where he was found to have severe sleep apnea. [facility] has been trying to find a placement for him for the entire duration of hospitalization. Patient aspirated after ?comfort feed of 1 tbsp of vanilla pudding?, needed pressors briefly in the ICU as of 07/23/2025, has been off pressors and is being transitioned to medical floor as [facility] and care team deemed him not a candidate for their team back, even though he has been on their team for nearly 2 months. Essentially ?placement , which is going to be challenging Aspiration pneumonia - after a comfort feed of 1 tbsp of vanilla pudding Rectal tube removed on 07/25/25, 2/2 discomfort and formed stool per RN Dysphagia and history of aspiration Patient with a tube feeding vital 1.5 at 85 mL/hour for 16 hours on as 18:00 off at 10:00. Free water flush 240 mg L every 4 hours Patient is at risk for aspiration. Out of bed for all meals, HOB elevated 30-45 degrees at all times. Patient did have repeat barium swallow in-hospital in May 2025 which demonstrated some improvement from previous, however he was still aspirating. Patient has a long history of dysphagia and swallowing studies and he is likely to be continued risk for aspiration and unlikely to be nutritional needs on a full p.o. diet. Patient was given p.o. intake for pleasure. He has been given ice cream and puddings in the hospital, he is aware of the risks of aspiration and is willing to accept that risk as he wants to eat soft foods. Psychiatry unsure whether patient fully understands the manifestations of risks of p.o. intake. Patient has invoked healthcare proxy Patient had one ounce of pudding and some ice chips on July 20 with speech therapy. Status post brief ICU stay for pressor support in the setting of aspiration pneumonia for a day and [facility] and care team deemed the patient not needing their services and hence being placed on medicine team for placement which is going to be challenging. Patient is going to be strict NPO Feeds and NG tube meds only be through G-tube We will switch IV antibiotics to G-tube Augmentin for 7 days total Undiagnosed LOUANN Nebulizing updrafts, O2 Use p.r.n. CPAP as needed Schizoaffective disorder/depression Per psych team, he is on his medication not needing any adjustments and hence do not have any active management to offer. But they are happy to be consulted as needed, which we appreciate. Disposition :Placement for this patient is exceptionally complex due to severe and persistent paranoid delusions that render them unable to cooperate with care. The patient views caregivers and staff with suspicion and distrust, leading to refusal of medication, verbal aggression, and an inability to participate in routine care. These behaviors pose significant safety risks and have made it difficult to find a long-term care setting equipped to manage their high-acuity psychiatric needs. The primary challenge is establishing a safe, therapeutic environment that can accommodate their profound distrust while ensuring their well-being and managing the complex legal and ethical considerations of their impaired capacity This note is constructed using voice recognition software. While every effort has been made to ensure accuracy, chronometer tester errors may have been included. Quality Stroke Does the patient have a stroke diagnosis?: No VTE Prior VTE?: No VTE Risk Level:: Medical - moderate - high VTE Device Contraindication: Treatment Not Indicated VTE Drug Contraindication: N/A - Med Ordered
[2025-07-26] MEDS: Amoxicillin/Potassium Clav 4,000 MG/50 ML SUSP.RECON 875 MG G-TUBE (09:59)
[2025-07-26] MEDS: 0.9 % Sodium Chloride Flush 3 ML SYRINGE IVFLUSH ×2 (10:05→16:17)
[2025-07-26] MEDS: Valproic Acid Liquid 250 MG/5 ML SOLUTION 1000 MG G-TUBE ×2 (11:09→16:16)
[2025-07-26 11:16] VITALS: BP 133/74; PULSE 69; RESP 14; TEMP 36.8; O2SAT 96
[2025-07-26 15:27] VITALS: BP 137/66; PULSE 67; RESP 14; TEMP 36.4; O2SAT 95
[2025-07-26 19:24] VITALS: BP 119/57; PULSE 76; RESP 18; TEMP 36.3; O2SAT 95
[2025-07-26 23:31] VITALS: BP 157/75; PULSE 62; RESP 17; TEMP 36.2; O2SAT 96
[2025-07-27] MEDS: 0.9 % Sodium Chloride Flush 3 ML SYRINGE IVFLUSH ×4 (00:48→21:02)
[2025-07-27 03:53] VITALS: BP 160/75; PULSE 67; RESP 17; TEMP 36.3; O2SAT 97
[2025-07-27 06:00] VITALS: BMI 23.5
--- NOTE | 2025-07-27 07:12 | P.PNIM_ITS ---
Subjective Subjective Date of Service: 07/27/25 Interval History: status quo Review of Systems Review of Systems: Yes Unobtainable due to mental condition and Unobtainable due to mental status Physical Exam 2 Exam: Exam: General: A&O times 0, severe paranoid delusions Resp: CTA bilaterally CVS: S1, S2, RRR GI: G-tube present, area CDI Neuro: Grossly intact, however difficult to follow directions hence unable to complete a full neuro exam Psych: Per psych who has seen the patient and manage the patient for greater than 1 month, he has had similar paranoid delusions Vital Signs: Vital Signs: Last Vital Signs Temp 97.3 F 07/27/25 03:53 Pulse 67 07/27/25 03:53 Resp 17 07/27/25 03:53 BP 160/75 H 07/27/25 03:53 Pulse Ox 97 07/27/25 03:53 O2 Del Method Room Air 07/27/25 03:53 O2 Flow Rate 4 07/23/25 11:00 FiO2 55 07/22/25 19:00 Oxygen Flow Rate 50 07/22/25 12:40 BMI result Body Mass Index 23.5 Objective Data Active Medications Acetaminophen (Acetaminophen 325 Mg Tablet) 650 mg PO Q6H PRN PRN Reason: Pain, Mild 1-3,fever,headache Last Admin: 07/24/25 18:32 Dose: 650 mg Documented By: WARREN Acetaminophen (Acetaminophen 325 Mg Tablet) 975 mg G-TUBE TID [facility] Last Admin: 07/26/25 22:00 Dose: Not Given Documented By: GOVIND Non-Admin Reason: Pt NPO, no GT access Albuterol/Ipratropium (Albuterol/Iprat 2.5/0.5mg 3 Ml Ampul.Neb) 3 ml INHALE Q4H PRN PRN Reason: Shortness of Breath/Wheezing Amoxicillin/Clavulanate Potassium (Amoxicillin/Potassium Clav 4,000 Mg/50 Ml Susp.Recon) 875 mg G-TUBE BID [facility] Stop: 07/31/25 20:59 Last Admin: 07/26/25 22:00 Dose: Not Given Documented By: GOVIND Non-Admin Reason: Pt NPO, no GT access Atorvastatin Calcium (Atorvastatin Calcium 40 Mg Tablet) 40 mg G-TUBE BEDTIME [facility] Last Admin: 07/26/25 22:00 Dose: Not Given Documented By: GOVIND Non-Admin Reason: Pt NPO, no GT access Bisacodyl (Bisacodyl 10 Mg Supp.Rect) 10 mg [place] DAILY PRN PRN Reason: Constipation Calcium Carbonate (Calcium Carbonate 750 Mg Tab.Chew) 750 mg PO Q4H PRN PRN Reason: Heartburn Calcium Carbonate (Calcium Carbonate 750 Mg Tab.Chew) 750 mg G-TUBE TID PRN PRN Reason: Heartburn Capsaicin (Capsaicin 0.025% Cream 60 Gm Tube) 1 appl TOPICAL TID PRN; Protocol PRN Reason: Pain, Moderate(Pain Scale 4-6) Clozapine (Clozapine 100 Mg Tablet) 200 mg G-TUBE DAILY@1700 [facility] Last Admin: 07/26/25 16:16 Dose: 200 mg Documented By: KRISTA Clozapine (Clozapine 25 Mg Tablet) 50 mg G-TUBE DAILY@1100 [facility] Last Admin: 07/26/25 11:09 Dose: 50 mg Documented By: ESVIN Enoxaparin Sodium (Enoxaparin Sodium 40 Mg/0.4 Ml Syringe) 40 mg SUBCUT Q24H [facility] Last Admin: 07/26/25 11:09 Dose: 40 mg Documented By: ESVIN Gabapentin (Gabapentin 300 Mg Capsule) 300 mg G-TUBE BEDTIME [facility] Last Admin: 07/26/25 22:00 Dose: Not Given Documented By: GOVIND Non-Admin Reason: Pt NPO, no GT access Gabapentin (Gabapentin 100 Mg Capsule) 100 mg G-TUBE DAILY [facility] Last Admin: 07/26/25 09:45 Dose: 100 mg Documented By: ESVIN Haloperidol (Haloperidol 1 Mg Tablet) 2 mg G-TUBE BID PRN PRN Reason: Agitation Haloperidol (Haloperidol 1 Mg Tablet) 1 mg G-TUBE DAILY [facility] Last Admin: 07/26/25 09:45 Dose: 1 mg Documented By: ESVIN Haloperidol (Haloperidol 1 Mg Tablet) 3 mg G-TUBE BEDTIME [facility] Last Admin: 07/26/25 22:00 Dose: Not Given Documented By: GOVIND Non-Admin Reason: Pt NPO, no GT access Magnesium Hydroxide (Milk Of Magnesia 30 Ml Oral.Susp) 30 ml PO DAILY PRN PRN Reason: Constipation Melatonin (Melatonin 3 Mg Tablet) 6 mg PO BEDTIME PRN PRN Reason: Insomnia Ondansetron HCl (Ondansetron Hcl 4 Mg/2 Ml Vial) 4 mg IVPUSH Q8H PRN PRN Reason: Vomiting Pantoprazole Sodium (Pantoprazole Sodium 40 Mg/10 Ml Vial) 40 mg IVPUSH DAILY@0630 [facility] Last Admin: 07/27/25 06:36 Dose: 40 mg Documented By: GOVIND Sodium Chloride (0.9 % Sodium Chloride Flush 3 Ml Syringe) 3 ml IVFLUSH QSHIFT [facility] Last Admin: 07/27/25 00:48 Dose: 3 ml Documented By: GOVIND Trazodone HCl (Trazodone Hcl 50 Mg Tablet) 150 mg G-TUBE BEDTIME [facility] Last Admin: 07/26/25 22:00 Dose: Not Given Documented By: GOVIND Non-Admin Reason: Pt NPO, no GT access Valproic Acid (Valproic Acid Liquid 250 Mg/5 Ml Solution) 1,000 mg G-TUBE BID@1100,1700 [facility] Last Admin: 07/26/25 16:16 Dose: 1,000 mg Documented By: KRISTA Labs 07/23/25 05:48 07/23/25 05:48 Assessment and Plan (1) Chronic pulmonary aspiration: Status: Acute Plan 70-year-old male admitted here after a prolonged 8 week hospitalization. Patient continued with suicidal ideation throughout the hospital stay therefore discharged here to inpatient [facility] for further treatment Schizoaffective disorder on clozapine. Recently readmitted to [facility] after medical stay where he was found to have severe sleep apnea. [facility] has been trying to find a placement for him for the entire duration of hospitalization. Patient aspirated after ?comfort feed of 1 tbsp of vanilla pudding?, needed pressors briefly in the ICU as of 07/23/2025, has been off pressors and is being transitioned to medical floor as [facility] and care team deemed him not a candidate for their team back, even though he has been on their team for nearly 2 months. Essentially ?placement , which is going to be challenging Aspiration pneumonia - after a comfort feed of 1 tbsp of vanilla pudding Rectal tube removed on 07/25/25, 2/2 discomfort and formed stool per RN Dysphagia and history of aspiration Patient with a tube feeding vital 1.5 at 85 mL/hour for 16 hours on as 18:00 off at 10:00. Free water flush 240 mg L every 4 hours Patient is at risk for aspiration. Out of bed for all meals, HOB elevated 30-45 degrees at all times. Patient did have repeat barium swallow in-hospital in May 2025 which demonstrated some improvement from previous, however he was still aspirating. Patient has a long history of dysphagia and swallowing studies and he is likely to be continued risk for aspiration and unlikely to be nutritional needs on a full p.o. diet. Patient was given p.o. intake for pleasure. He has been given ice cream and puddings in the hospital, he is aware of the risks of aspiration and is willing to accept that risk as he wants to eat soft foods. Psychiatry unsure whether patient fully understands the manifestations of risks of p.o. intake. Patient has invoked healthcare proxy Patient had one ounce of pudding and some ice chips on July 20 with speech therapy. Status post brief ICU stay for pressor support in the setting of aspiration pneumonia for a day and [facility] and care team deemed the patient not needing their services and hence being placed on medicine team for placement which is going to be challenging. Patient is going to be strict NPO Feeds and NG tube meds only be through G-tube We will switch IV antibiotics to G-tube Augmentin for 7 days total Undiagnosed LOUANN Nebulizing updrafts, O2 Use p.r.n. CPAP as needed Schizoaffective disorder/depression Per psych team, he is on his medication not needing any adjustments and hence do not have any active management to offer. But they are happy to be consulted as needed, which we appreciate. Disposition :Placement for this patient is exceptionally complex due to severe and persistent paranoid delusions that render them unable to cooperate with care. The patient views caregivers and staff with suspicion and distrust, leading to refusal of medication, verbal aggression, and an inability to participate in routine care. These behaviors pose significant safety risks and have made it difficult to find a long-term care setting equipped to manage their high-acuity psychiatric needs. The primary challenge is establishing a safe, therapeutic environment that can accommodate their profound distrust while ensuring their well-being and managing the complex legal and ethical considerations of their impaired capacity This note is constructed using voice recognition software. While every effort has been made to ensure accuracy, shuttle bus driver errors may have been included. Quality Stroke Does the patient have a stroke diagnosis?: No VTE Prior VTE?: No VTE Risk Level:: Medical - moderate - high VTE Device Contraindication: Treatment Not Indicated VTE Drug Contraindication: N/A - Med Ordered
--- NOTE | 2025-07-27 07:37 | PC.NURSE ---
At approx 2200, RN was called into room because it was noted by [employer] that g tube appeared to be leaking. RN in to assess pt. It was found that the g tube was broken and not usable. Nursing supervisor treating and pumping alerted of this, and came to assess situation. Occupancy Specialist advised this RN she would look in stock room for new STEPHEN evans. Occupancy Specialist was unable to find new STEPHEN evans tube. MD was notified of this. IV zosyn given per MAR per MD order. All other meds held at this time. Plan of care continues.
[2025-07-27 07:42] VITALS: BP 130/80; PULSE 74; RESP 12; TEMP 36.3; O2SAT 97
[2025-07-27] MEDS: Amoxicillin/Potassium Clav 4,000 MG/50 ML SUSP.RECON 875 MG G-TUBE ×2 (07:58→20:54)
--- NOTE | 2025-07-27 09:37 | PM.CNGS ---
History of Present Illness Consult details Consult date: 07/27/25 Narrative: 70-year-old male with a long history of schizophrenia, dysphagia with aspiration in the past, referred because of the detached peg tube. He has been feeding via the PEG tube in view of his dysphagia with history of aspiration He had been in the ICU last month because of aspiration pneumonia He currently denies any abdominal pain. There is no evidence of any bowel obstruction clinically. Review of Systems Review of Systems: Unavailable Yes Unobtainable due to mental status Constitutional: Constitutional: Denies chills and Denies fever(s) [facility] Past Medical History Medical History (Updated 07/27/25 @ 09:39 by Avinash Bates MD) PEG tube malfunction Gout BPH (benign prostatic hyperplasia) GERD (gastroesophageal reflux disease) Erectile dysfunction CKD (chronic kidney disease) intermediate current use of clozapine Vascular dementia Delusions Suicidal ideation supervisor intermediates current use of clozapine Aspiration pneumonia COVID Dysphagia Depression Sleep apnea Schizo affective schizophrenia Surgical History Surgical History (Updated 07/22/25 @ 15:44 by Cong Moore RN) Previous back surgery Gastrointestinal tube present Social History Social History Household Members: Unknown / Unable to assess Household Members Other:: Facility residents Housing: Assisted Living Facility Housing Other:: Patient has been in hospital/rehabs for past 1 1/2 years. Comment: 1:1 sitter Patient Tobacco Use Status: Never used Tobacco e-Cigarette/Vaping Use: Never Used Second Hand Smoke Exposure: No Currently Displaying Signs/Symptoms of Drug Intoxication Withdrawal: No Spiritual Healthcare Practices: unable to respond [facility] Pract[facility]: unable to respond Cultural Healthcare Practices: unable to respond Advance Directives: Yes Advance Directives on File: Yes Advance Directives Date on File: 06/26/25 Recently lost weight without trying: Unsure Nutrition Risks: Difficulty chewing, Difficulty swallowing, On aspiration precautions and Receiving home tube feeding or CPN service: No Sexual orientation: Straight/Heterosexual Meds Allergies Allergy/AdvReac Type Severity Reaction Status Date / Time morphine Allergy Itching Verified 07/22/25 15:46 Active Medications: Current Medications Acetaminophen (Acetaminophen 325 Mg Tablet) 650 mg PO Q6H PRN PRN Reason: Pain, Mild 1-3,fever,headache Last Admin: 07/24/25 18:32 Dose: 650 mg Acetaminophen (Acetaminophen 325 Mg Tablet) 975 mg G-TUBE TID CLAUDIA Last Admin: 07/27/25 07:57 Dose: 975 mg Albuterol/Ipratropium (Albuterol/Iprat 2.5/0.5mg 3 Ml Ampul.Neb) 3 ml INHALE Q4H PRN PRN Reason: Shortness of Breath/Wheezing Amoxicillin/Clavulanate Potassium (Amoxicillin/Potassium Clav 4,000 Mg/50 Ml Susp.Recon) 875 mg G-TUBE BID [facility] Stop: 07/31/25 20:59 Last Admin: 07/27/25 07:58 Dose: 875 mg Atorvastatin Calcium (Atorvastatin Calcium 40 Mg Tablet) 40 mg G-TUBE BEDTIME [facility] Last Admin: 07/26/25 22:00 Dose: Not Given Bisacodyl (Bisacodyl 10 Mg Supp.Rect) 10 mg [place] DAILY PRN PRN Reason: Constipation Calcium Carbonate (Calcium Carbonate 750 Mg Tab.Chew) 750 mg PO Q4H PRN PRN Reason: Heartburn Calcium Carbonate (Calcium Carbonate 750 Mg Tab.Chew) 750 mg G-TUBE TID PRN PRN Reason: Heartburn Capsaicin (Capsaicin 0.025% Cream 60 Gm Tube) 1 appl TOPICAL TID PRN; Protocol PRN Reason: Pain, Moderate(Pain Scale 4-6) Clozapine (Clozapine 100 Mg Tablet) 200 mg G-TUBE DAILY@1700 [facility] Last Admin: 07/26/25 16:16 Dose: 200 mg Clozapine (Clozapine 25 Mg Tablet) 50 mg G-TUBE DAILY@1100 [facility] Last Admin: 07/26/25 11:09 Dose: 50 mg Enoxaparin Sodium (Enoxaparin Sodium 40 Mg/0.4 Ml Syringe) 40 mg SUBCUT Q24H [facility] Last Admin: 07/26/25 11:09 Dose: 40 mg Gabapentin (Gabapentin 300 Mg Capsule) 300 mg G-TUBE BEDTIME [facility] Last Admin: 07/26/25 22:00 Dose: Not Given Gabapentin (Gabapentin 100 Mg Capsule) 100 mg G-TUBE DAILY [facility] Last Admin: 07/27/25 07:58 Dose: 100 mg Haloperidol (Haloperidol 1 Mg Tablet) 2 mg G-TUBE BID PRN PRN Reason: Agitation Haloperidol (Haloperidol 1 Mg Tablet) 1 mg G-TUBE DAILY [facility] Last Admin: 07/27/25 07:58 Dose: 1 mg Haloperidol (Haloperidol 1 Mg Tablet) 3 mg G-TUBE BEDTIME [facility] Last Admin: 07/26/25 22:00 Dose: Not Given Magnesium Hydroxide (Milk Of Magnesia 30 Ml Oral.Susp) 30 ml PO DAILY PRN PRN Reason: Constipation Melatonin (Melatonin 3 Mg Tablet) 6 mg PO BEDTIME PRN PRN Reason: Insomnia Ondansetron HCl (Ondansetron Hcl 4 Mg/2 Ml Vial) 4 mg IVPUSH Q8H PRN PRN Reason: Vomiting Pantoprazole Sodium (Pantoprazole Sodium 40 Mg/10 Ml Vial) 40 mg IVPUSH DAILY@0630 [facility] Last Admin: 07/27/25 06:36 Dose: 40 mg Sodium Chloride (0.9 % Sodium Chloride Flush 3 Ml Syringe) 3 ml IVFLUSH QSHIFT [facility] Last Admin: 07/27/25 08:17 Dose: 3 ml Trazodone HCl (Trazodone Hcl 50 Mg Tablet) 150 mg G-TUBE BEDTIME [facility] Last Admin: 07/26/25 22:00 Dose: Not Given Valproic Acid (Valproic Acid Liquid 250 Mg/5 Ml Solution) 1,000 mg G-TUBE BID@1100,1700 [facility] Last Admin: 07/26/25 16:16 Dose: 1,000 mg Physical Exam Vital Signs: Vital Signs: Last Vital Signs Temp 97.3 F 07/27/25 07:42 Pulse 74 07/27/25 07:42 Resp 12 07/27/25 07:42 BP 130/80 07/27/25 07:42 Pulse Ox 97 07/27/25 07:42 O2 Del Method Room Air 07/27/25 07:42 O2 Flow Rate 4 07/23/25 11:00 FiO2 55 07/22/25 19:00 Oxygen Flow Rate 50 07/22/25 12:40 BMI result Body Mass Index 23.5 Const: Other: Appears comfortable General: no acute distress Resp: Effort & Inspection: normal respiratory effort Cardio: Rate: regular rate GI: Other: Peg tube in place, low profile anya type, with the end of the PEG detached from adapter Inspection: No distended Palpation (GI): Soft to palpation, not firm, nontender and no guarding Results Labs 07/23/25 05:48 07/23/25 05:48 Labs: Urine 07/22/25 Range/Units 19:52 Urine Color Yellow Urine Appearance Clear Urine pH 6.5 (5.0-9.0) Ur Specific Anita 1.015 (1.005-1.025) Urine Protein Trace (Neg-Trace) mg/dL Urine Glucose (UA) Negative (Negative) mg/dL All other labs normal. Assessment and Plan (1) PEG tube malfunction: Status: Acute I was able to reattached the PEG tube to the adapter and taped this to keep this in place. We do not have this type of peg tube available in the hospital as this has a low profile model. He says that he actually sees somebody for maintenance of the PEG tube. In the meantime, this PEG tube can be used for feeding while he is in the hospital. His abdomen is otherwise soft and benign. Procedures Date of Service Date of Service: 07/27/25
[2025-07-27 12:00] VITALS: BP 163/79; PULSE 75; RESP 12; TEMP 36.4; O2SAT 95
[2025-07-27] MEDS: Valproic Acid Liquid 250 MG/5 ML SOLUTION 1000 MG G-TUBE ×2 (12:18→16:36)
--- NOTE | 2025-07-27 12:18 | P.EN_ITS ---
Event Note Date of Service: 07/27/25 Event Note: Patient G tube dependent. Had G-tube placed in January. G tube connecting tubing unfortunately fell apart again. Do not have the same tubing in house and therefore needed to change the entire G tube itself. Button removed, balloon decompressed and saline removed and G tube removed uneventfully. Tube labeled 16F. [email or web address] 16F G tube was then lubricated well and advanced into G tube site without difficulty. 4cc saline inserted to balloon. G tube pulled back until slight resistance felt. Bolster applied to skin. Patient tolerated procedure well. Can begin G tube use. Time Spent With Patient Time: Total time managing care of this patient today ____ minutes.
--- NOTE | 2025-07-27 12:35 | PM.EVENT ---
Event Note Date of Service: 07/27/25 Event Note: The PEG tube appeared frayed at the end and detached from the adapter I therefore changed this into a regular anya 16Fr replacement PEG tube There was no difficulty with removing the old PEG tube and replacing this Okay to start using this new PEG tube Discussed with nursing staff Time Spent With Patient Time: Total time managing care of this patient today ____ minutes.
--- NOTE | 2025-07-27 13:15 | MHC.CM.PN ---
PT rec STR. Patient will need to transition to LTC. Reviewed with brother/court affirmed HCP Delvin. He is agreeable to plan. He reports that patient has private funds (60-70k in a bank account and ~1million in investments that can be liquidated). He will send documentation of this to CM office fax. Will send referrals when financials are received.
--- NOTE | 2025-07-27 13:23 | MHC.CLN ---
F/U CONTINUES NPO WITH NUTRITION/HYDRATION VIA PEG TUBE FEEDING. TUBE REPLACED TODAY, 07/27. RECOMMEND TF OSMOLITE 1.5 AT MAX GOAL RATE 60ML/HR WITH 300ML FREE WATER FLUSHES Q 6 HRS TO PROVIDE 2160KCALS (29KCALS/KG), 90G PROTEIN (1.2G/KG), 2297ML TOTAL WATER FROM FORMULA AND FLUSHES (31ML/KG) MONITOR TOLERANCE AND LYTES. PATIENT HAD BEEN TOLERATING TUBE FEEDING PRIOR TO NEED FOR TUBE REPLACEMENT.
--- NOTE | 2025-07-27 13:26 | MHC.SLORD ---
Speech Language Pathology Order Status: SLEEVE SETTER LOCKSTITCH consultation is on hold at this time, waiting for code status change as pt unable to tolerate PO for comfort as was previously recommended after MBSS at prior facility in May 2025. Aspiration risk remains profound.
[2025-07-27 16:00] VITALS: BP 135/71; PULSE 79; RESP 18; TEMP 36.5; O2SAT 97
--- NOTE | 2025-07-27 17:56 | PC.NURSE ---
9330- surgical consult placed to assess PEG tube that had broke overnight, Dr Bates in to see pt with this RN. MD placed tubing into port site and taped in place, stated ok to attempt to restart tube feeds and administer medications as ordered. TF and medications were administered without difficulty. 1109- Pt found to be soaked in bed and tape on TF tubing had become undone once again. Dr Musa and Dr Bates notified. 1119- Per Dr Musa, Sitter can be discontinued. Telesitter placed in nika. Pt has not voiced any SI. 1200- Dr Bates in to reassess PEG and replaced unit. This RN able to restart feedings without any further incident. PT eval done and pt sat in recliner for a few hours. Assisted BTB with ryan. Pt refuses foams, only requests repositioning
[2025-07-27 19:49] VITALS: BP 152/66; PULSE 82; RESP 18; TEMP 36.3; O2SAT 95
[2025-07-27 23:39] VITALS: BP 141/71; PULSE 72; RESP 18; TEMP 36.2; O2SAT 93
[2025-07-28] VITALS (7 sets, daily range): BP systolic 138–156; BP diastolic 70–85; PULSE 62–84; RESP 18; TEMP 36.1–36.6; O2SAT 96–99
--- NOTE | 2025-07-28 07:38 | HO.PM.IMPN ---
Subjective Subjective Date of Service: 07/28/25 Interval History: f/u on aspiration PNA Need for placement No new issues Physical Exam Vital Signs: Vital Signs: Last Vital Signs Temp 97.3 F 07/28/25 03:38 Pulse 70 07/28/25 03:38 Resp 18 07/28/25 03:38 BP 156/75 H 07/28/25 03:38 Pulse Ox 97 07/28/25 03:38 O2 Del Method Room Air 07/28/25 03:38 O2 Flow Rate 4 07/23/25 11:00 FiO2 55 07/22/25 19:00 Oxygen Flow Rate 50 07/22/25 12:40 BMI result Body Mass Index 23.5 Const: Other: Appears comfortable General: no acute distress Resp: Effort & Inspection: normal respiratory effort Cardio: Rate: regular rate GI: Other: Peg tube in place, low profile anya type, with the end of the PEG detached from adapter Inspection: No distended Palpation (GI): Soft to palpation, not firm, nontender and no guarding Objective Data Active Medications Acetaminophen (Acetaminophen 325 Mg Tablet) 650 mg PO Q6H PRN PRN Reason: Pain, Mild 1-3,fever,headache Last Admin: 07/24/25 18:32 Dose: 650 mg Documented By: WARREN Acetaminophen (Acetaminophen 325 Mg Tablet) 975 mg G-TUBE TID [facility] Last Admin: 07/27/25 20:39 Dose: 975 mg Documented By: KYLIE Albuterol/Ipratropium (Albuterol/Iprat 2.5/0.5mg 3 Ml Ampul.Neb) 3 ml INHALE Q4H PRN PRN Reason: Shortness of Breath/Wheezing Amoxicillin/Clavulanate Potassium (Amoxicillin/Potassium Clav 4,000 Mg/50 Ml Susp.Recon) 875 mg G-TUBE BID [facility] Stop: 07/31/25 20:59 Last Admin: 07/27/25 20:54 Dose: 875 mg Documented By: KYLIE Atorvastatin Calcium (Atorvastatin Calcium 40 Mg Tablet) 40 mg G-TUBE BEDTIME [facility] Last Admin: 07/27/25 20:39 Dose: 40 mg Documented By: KYLIE Bisacodyl (Bisacodyl 10 Mg Supp.Rect) 10 mg [place] DAILY PRN PRN Reason: Constipation Calcium Carbonate (Calcium Carbonate 750 Mg Tab.Chew) 750 mg PO Q4H PRN PRN Reason: Heartburn Calcium Carbonate (Calcium Carbonate 750 Mg Tab.Chew) 750 mg G-TUBE TID PRN PRN Reason: Heartburn Capsaicin (Capsaicin 0.025% Cream 60 Gm Tube) 1 appl TOPICAL TID PRN; Protocol PRN Reason: Pain, Moderate(Pain Scale 4-6) Clozapine (Clozapine 100 Mg Tablet) 200 mg G-TUBE DAILY@1700 [facility] Last Admin: 07/27/25 16:36 Dose: 200 mg Documented By: ESVIN Clozapine (Clozapine 25 Mg Tablet) 50 mg G-TUBE DAILY@1100 [facility] Last Admin: 07/27/25 12:18 Dose: 50 mg Documented By: ESVIN Enoxaparin Sodium (Enoxaparin Sodium 40 Mg/0.4 Ml Syringe) 40 mg SUBCUT Q24H [facility] Last Admin: 07/27/25 11:16 Dose: 40 mg Documented By: ESVIN Gabapentin (Gabapentin 300 Mg Capsule) 300 mg G-TUBE BEDTIME [facility] Last Admin: 07/27/25 20:39 Dose: 300 mg Documented By: KYLIE Gabapentin (Gabapentin 100 Mg Capsule) 100 mg G-TUBE DAILY [facility] Last Admin: 07/27/25 07:58 Dose: 100 mg Documented By: ESVIN Haloperidol (Haloperidol 1 Mg Tablet) 2 mg G-TUBE BID PRN PRN Reason: Agitation Haloperidol (Haloperidol 1 Mg Tablet) 1 mg G-TUBE DAILY [facility] Last Admin: 07/27/25 07:58 Dose: 1 mg Documented By: ESVIN Haloperidol (Haloperidol 1 Mg Tablet) 3 mg G-TUBE BEDTIME [facility] Last Admin: 07/27/25 20:39 Dose: 3 mg Documented By: KYLIE Magnesium Hydroxide (Milk Of Magnesia 30 Ml Oral.Susp) 30 ml PO DAILY PRN PRN Reason: Constipation Melatonin (Melatonin 3 Mg Tablet) 6 mg PO BEDTIME PRN PRN Reason: Insomnia Ondansetron HCl (Ondansetron Hcl 4 Mg/2 Ml Vial) 4 mg IVPUSH Q8H PRN PRN Reason: Vomiting Sodium Chloride (0.9 % Sodium Chloride Flush 3 Ml Syringe) 3 ml IVFLUSH QSHIFT [facility] Last Admin: 07/27/25 21:02 Dose: 3 ml Documented By: HO.ODRISM Trazodone HCl (Trazodone Hcl 50 Mg Tablet) 150 mg G-TUBE BEDTIME [facility] Last Admin: 07/27/25 20:39 Dose: 150 mg Documented By: ODRISM Valproic Acid (Valproic Acid Liquid 250 Mg/5 Ml Solution) 1,000 mg G-TUBE BID@1100,1700 [facility] Last Admin: 07/27/25 16:36 Dose: 1,000 mg Documented By: LARHO Labs 07/23/25 05:48 07/23/25 05:48 Microbiology Microbiology Results: Microbiology 07/22/25 13:17 Blood Culture - Final Blood - Venous No growth after 5 days. 07/22/25 13:17 Blood Culture - Final Blood - Venous No growth after 5 days. Assessment and Plan (1) Schizophrenia: Status: Acute (2) Dysphagia: Status: Acute (3) PEG tube malfunction: Status: Acute (4) Chronic pulmonary aspiration: Status: Acute Plan 70-year-old male with schizoaffective disorder on clozapine, admitted from [facility] after an 8-week hospitalization for persistent suicidal ideation. During his stay, he aspirated after a small comfort feed, requiring brief ICU care with pressors. Now stable and off pressors, he was transferred to the medical floor, as geriatric psychiatry and the care team have determined he is no longer appropriate for their unit. Placement remains challenging due to ongoing psychiatric and medical complexity. Aspiration Pneumonia (post-ICU, now stable): Developed after comfort feeding (vanilla pudding); required brief pressor support in ICU. Now hemodynamically stable and transitioned to medical floor. Switched IV antibiotics to G-tube Augmentin to complete a 7-day course. Dysphagia with High Aspiration Risk: Longstanding dysphagia with repeated aspiration events, including recent episode despite improved barium swallow. Strict NPO except for G-tube feeds and medications, PEG was replaced by surgery 07/27 Continue tube feeding (Vital 1.5 at 85 mL/hr for 16 hours, 240 mL free water flush every 4 hours). HOB elevated 30?45?. Patient desires occasional pleasure feeds (ice cream, pudding) and is aware of aspiration risk, though capacity for full understanding is unclear; healthcare proxy invoked. Schizoaffective Disorder/Depression: Managed on clozapine and current psychiatric regimen; no medication changes needed per psychiatry. Ongoing severe paranoid delusions and behavioral challenges complicate placement and care. Psychiatry available for consultation as needed. Obstructive Sleep Apnea (LOUANN): Diagnosed during recent hospitalization. Continue O2 and nebulizer treatments as needed. Use PRN CPAP. Placement/Disposition: Placement is highly complex due to persistent paranoid delusions, refusal of care, and safety risks. Patient is not a candidate for return to geriatric psychiatry unit per Psych team Social work and case management actively seeking a facility capable of managing high-acuity psychiatric and medical needs. Other: Rectal tube removed due to discomfort and formed stool. Continue routine care and monitoring. Summary: Medically stable post-aspiration pneumonia, but ongoing high aspiration risk, severe psychiatric illness, and complex placement needs due to behavioral issues and impaired capacity. Multidisciplinary team involved in ongoing care and disposition planning. Quality Stroke Does the patient have a stroke diagnosis?: No VTE Prior VTE?: No VTE Risk Level:: Medical - moderate - high VTE Device Contraindication: Treatment Not Indicated VTE Drug Contraindication: N/A - Med Ordered
[2025-07-28] MEDS: Amoxicillin/Potassium Clav 4,000 MG/50 ML SUSP.RECON 875 MG G-TUBE ×2 (08:30→21:20)
[2025-07-28] MEDS: 0.9 % Sodium Chloride Flush 3 ML SYRINGE IVFLUSH ×3 (08:43→21:03)
[2025-07-28] MEDS: Valproic Acid Liquid 250 MG/5 ML SOLUTION 1000 MG G-TUBE ×2 (11:59→17:50)
--- NOTE | 2025-07-28 15:09 | MHC.CM.PN ---
HCP/BROTHER DANIEL PROVIDED PT'S FINANCIALS/BANK STATEMENTS TO CM. DOCUMENTS PROVIDED TO STR CENTERS IN THE [facility] PER REQUEST OF BROTHER. CM WILL AWAIT A BED OFFER/EXPAND REFERRALS NECESSARY.
[2025-07-29] VITALS (7 sets, daily range): BP systolic 137–154; BP diastolic 67–83; PULSE 69–84; RESP 17–20; TEMP 36.2–36.3; O2SAT 97–99; BMI 24.7
--- NOTE | 2025-07-29 01:46 | PC.NURSE ---
Pt took off CPAP stating I do not need that crap, I do not have that sleep apnea , pt educated on the use of the CPAP but refused to wear.
[2025-07-29 06:25] LABS: Neut%MD 73.4 %; WBCANC 9.4 X10*3/uL
[2025-07-29] MEDS: Amoxicillin/Potassium Clav 4,000 MG/50 ML SUSP.RECON 875 MG G-TUBE ×2 (08:58→20:31)
--- NOTE | 2025-07-29 10:30 | MHC.SLORD ---
Speech Language Pathology Order Status: Pt remains on hold, RN consulted. No changes reported. Pt NPO strict with TF.
[2025-07-29] MEDS: Valproic Acid Liquid 250 MG/5 ML SOLUTION 1000 MG G-TUBE ×2 (11:19→16:48)
--- NOTE | 2025-07-29 12:33 | MHC.CLN ---
F/U CONTINUES NPO WITH NUTRITION/HYDRATION VIA PEG TUBE FEEDING. TOLERATING TUBE FEEDING AT MAX GOAL RATE. CONTINUE TF OSMOLITE 1.5 AT MAX GOAL RATE 60ML/HR WITH 300ML FREE WATER FLUSHES Q 6 HRS TO PROVIDE 2160KCALS (29KCALS/KG), 90G PROTEIN (1.2G/KG), 2297ML TOTAL WATER FROM FORMULA AND FLUSHES (31ML/KG) MONITOR TOLERANCE AND LYTES.
--- NOTE | 2025-07-29 12:52 | MHC.CM.PN ---
EMR REVIEWED. PT REMAINS MEDICALLY CLEARED. SNF REFERRALS EXPANDED BUT NO BED OFFERS. BARRIERS APPEAR TO BE PSYCH DX. CM WILL CONTINUE TO EXPAND REFERRALS AND FOLLOW FOR PLACEMENT.
--- NOTE | 2025-07-29 13:36 | MHC.CLN ---
F/U NURSE DISCUSSED WITH THIS PHARMACY CLINICAL SPECIALIST SOME OF PATENT'S NUTRITION CONCERNS. VISITED WITH PATIENT ON UNIT. REPORTS THAT IS HUNGRY. STATED THAT HE DOESN'T THINK HE IS GETTING ENOUGH NUTRITION. PATIENT IS NPO WITH NUTRITION/HYDRATION VIA TUBE FEEDING. TUBE FEEDING IS RUNNING CONTINUOUS ON UNIT. HAD BEEN RUNNING X 10 HOURS AT A HIGHER RATE WHILE ON HERB PSYCH AND PROVIDING COMPARABLE NUTRITION. BASED ON CONVERSATION WITH PATIENT, WILL INCREASE TF RATE TO OSMOLITE 1.5 AT 70 ML PER HOUR, FREE WATER FLUSHES 300 ML Q 6 HOURS. PROVIDES 2520 KCALS (31.4 KCAL/KG), 105 G PROTEIN (1.3 G/KG), TOTAL FREE WATER FROM FORMULA AND FLUSH 2480 ML (30.9 ML/KG). FOLLOW FOR TUBE FEED TOLERANCE AND PATIENT CONCERNS.
[2025-07-29] MEDS: 0.9 % Sodium Chloride Flush 3 ML SYRINGE IVFLUSH ×2 (15:42→21:13)
--- NOTE | 2025-07-29 16:09 | HO.PM.IMPN ---
Subjective Subjective Date of Service: 07/29/25 Interval History: f/u on aspiration PNA Need for placement No new issues Physical Exam Vital Signs: Vital Signs: Last Vital Signs Temp 97.1 F 07/29/25 16:00 Pulse 82 07/29/25 16:00 Resp 19 07/29/25 16:00 BP 137/78 07/29/25 16:00 Pulse Ox 97 07/29/25 16:00 O2 Del Method Room Air 07/29/25 16:00 O2 Flow Rate 4 07/23/25 11:00 FiO2 55 07/22/25 19:00 Oxygen Flow Rate 50 07/22/25 12:40 BMI result Body Mass Index 24.7 Const: Other: Appears comfortable General: no acute distress Resp: Effort & Inspection: normal respiratory effort Cardio: Rate: regular rate GI: Other: Peg tube in place, low profile anya type, with the end of the PEG detached from adapter Inspection: No distended Palpation (GI): Soft to palpation, not firm, nontender and no guarding Objective Data Active Medications Acetaminophen (Acetaminophen 325 Mg Tablet) 650 mg PO Q6H PRN PRN Reason: Pain, Mild 1-3,fever,headache Last Admin: 07/24/25 18:32 Dose: 650 mg Documented By: WARREN Acetaminophen (Acetaminophen 325 Mg Tablet) 975 mg G-TUBE TID [facility] Last Admin: 07/29/25 15:32 Dose: 975 mg Documented By: JAZLYN Amoxicillin/Clavulanate Potassium (Amoxicillin/Potassium Clav 4,000 Mg/50 Ml Susp.Recon) 875 mg G-TUBE BID [facility] Stop: 07/31/25 20:59 Last Admin: 07/29/25 08:58 Dose: 875 mg Documented By: JAZLYN Atorvastatin Calcium (Atorvastatin Calcium 40 Mg Tablet) 40 mg G-TUBE BEDTIME [facility] Last Admin: 07/28/25 21:02 Dose: 40 mg Documented By: PEDRO LUIS Bisacodyl (Bisacodyl 10 Mg Supp.Rect) 10 mg [place] DAILY PRN PRN Reason: Constipation Calcium Carbonate (Calcium Carbonate 750 Mg Tab.Chew) 750 mg PO Q4H PRN PRN Reason: Heartburn Calcium Carbonate (Calcium Carbonate 750 Mg Tab.Chew) 750 mg G-TUBE TID PRN PRN Reason: Heartburn Capsaicin (Capsaicin 0.025% Cream 60 Gm Tube) 1 appl TOPICAL TID PRN; Protocol PRN Reason: Pain, Moderate(Pain Scale 4-6) Clozapine (Clozapine 100 Mg Tablet) 200 mg G-TUBE DAILY@1700 [facility] Last Admin: 07/28/25 17:50 Dose: 200 mg Documented By: HERIBERTO Clozapine (Clozapine 25 Mg Tablet) 50 mg G-TUBE DAILY@1100 [facility] Last Admin: 07/29/25 11:19 Dose: 50 mg Documented By: JAZLYN Enoxaparin Sodium (Enoxaparin Sodium 40 Mg/0.4 Ml Syringe) 40 mg SUBCUT Q24H [facility] Last Admin: 07/29/25 11:19 Dose: 40 mg Documented By: JAZLYN Gabapentin (Gabapentin 300 Mg Capsule) 300 mg G-TUBE BEDTIME [facility] Last Admin: 07/28/25 21:02 Dose: 300 mg Documented By: PEDRO LUIS Gabapentin (Gabapentin 100 Mg Capsule) 100 mg G-TUBE DAILY [facility] Last Admin: 07/29/25 08:58 Dose: 100 mg Documented By: JAZLYN Haloperidol (Haloperidol 1 Mg Tablet) 2 mg G-TUBE BID PRN PRN Reason: Agitation Haloperidol (Haloperidol 1 Mg Tablet) 1 mg G-TUBE DAILY [facility] Last Admin: 07/29/25 08:58 Dose: 1 mg Documented By: JAZLYN Haloperidol (Haloperidol 1 Mg Tablet) 3 mg G-TUBE BEDTIME [facility] Last Admin: 07/28/25 21:01 Dose: 3 mg Documented By: PEDRO LUIS Magnesium Hydroxide (Milk Of Magnesia 30 Ml Oral.Susp) 30 ml PO DAILY PRN PRN Reason: Constipation Melatonin (Melatonin 3 Mg Tablet) 6 mg PO BEDTIME PRN PRN Reason: Insomnia Ondansetron HCl (Ondansetron Hcl 4 Mg/2 Ml Vial) 4 mg IVPUSH Q8H PRN PRN Reason: Vomiting Sodium Chloride (0.9 % Sodium Chloride Flush 3 Ml Syringe) 3 ml IVFLUSH QSHIFT [facility] Last Admin: 07/29/25 15:42 Dose: 3 ml Documented By: JAZLYN Trazodone HCl (Trazodone Hcl 50 Mg Tablet) 150 mg G-TUBE BEDTIME [facility] Last Admin: 07/28/25 21:02 Dose: 150 mg Documented By: PEDRO LUIS Valproic Acid (Valproic Acid Liquid 250 Mg/5 Ml Solution) 1,000 mg G-TUBE BID@1100,1700 [facility] Last Admin: 07/29/25 11:19 Dose: 1,000 mg Documented By: JAZLYN Labs 07/23/25 05:48 07/23/25 05:48 Labs: Laboratory Results - last 24 hr 07/29/25 05:32 Absolute Neuts (auto) 6.9 Microbiology Microbiology Results: Microbiology 07/22/25 13:17 Blood Culture - Final Blood - Venous No growth after 5 days. 07/22/25 13:17 Blood Culture - Final Blood - Venous No growth after 5 days. Assessment and Plan (1) Schizophrenia: Status: Acute (2) Dysphagia: Status: Acute (3) PEG tube malfunction: Status: Acute (4) Chronic pulmonary aspiration: Status: Acute Plan 70-year-old male with schizoaffective disorder on clozapine, admitted from [facility] after an 8-week hospitalization for persistent suicidal ideation. During his stay, he aspirated after a small comfort feed, requiring brief ICU care with pressors. Now stable and off pressors, he was transferred to the medical floor, as geriatric psychiatry and the care team have determined he is no longer appropriate for their unit. Placement remains challenging due to ongoing psychiatric and medical complexity. Aspiration Pneumonia (post-ICU, now stable): Developed after comfort feeding (vanilla pudding); required brief pressor support in ICU. Now hemodynamically stable and transitioned to medical floor. Switched IV antibiotics to G-tube Augmentin to complete a 7-day course. Dysphagia with High Aspiration Risk: Longstanding dysphagia with repeated aspiration events, including recent episode despite improved barium swallow. Strict NPO except for G-tube feeds and medications, PEG was replaced by surgery 07/27 Continue tube feeding (Vital 1.5 at 85 mL/hr for 16 hours, 240 mL free water flush every 4 hours). HOB elevated 30?45?. Patient desires occasional pleasure feeds (ice cream, pudding) and is aware of aspiration risk, though capacity for full understanding is unclear; healthcare proxy invoked. Schizoaffective Disorder/Depression: Managed on clozapine and current psychiatric regimen; no medication changes needed per psychiatry. Ongoing severe paranoid delusions and behavioral challenges complicate placement and care. Psychiatry available for consultation as needed. Obstructive Sleep Apnea (LOUANN): Diagnosed during recent hospitalization. Continue O2 and nebulizer treatments as needed. Use PRN CPAP. Placement/Disposition: Placement is highly complex due to persistent paranoid delusions, refusal of care, and safety risks. Patient is not a candidate for return to geriatric psychiatry unit per Psych team Social work and case management actively seeking a facility capable of managing high-acuity psychiatric and medical needs. Other: Rectal tube removed due to discomfort and formed stool. Continue routine care and monitoring. Summary: Medically stable post-aspiration pneumonia, but ongoing high aspiration risk, severe psychiatric illness, and complex placement needs due to behavioral issues and impaired capacity. Multidisciplinary team involved in ongoing care and disposition planning. Quality Stroke Does the patient have a stroke diagnosis?: No VTE Prior VTE?: No VTE Risk Level:: Medical - moderate - high VTE Device Contraindication: Treatment Not Indicated VTE Drug Contraindication: N/A - Med Ordered
[2025-07-29 18:13] LABS: Hematocrit 29.5 % (42.0-52.0); Hemoglobin 10.3 g/dl (14.0-18.0); Mean Corpuscular HGB Conc 34.9 g/dl (31.0-36.0); Mean Corpuscular Hemoglobin 31.8 pg (27.0-33.0); Mean Corpuscular Volume 91.0 fL (80.0-98.0); NRBC Abs Auto 0.000 X10*3/uL (0.0-0.012); NRBC Pct Auto 0.0 /100WBC (0.0-0.2); Platelet Count 203 X10*3/uL (160-400); Red Blood Count 3.24 X10*6/uL (4.60-5.80); White Blood Count 8.5 X10*3/uL (4.8-10.8)
[2025-07-29 18:24] LABS: Anion Gap 12 (12-20); Blood Urea Nitrogen 30 mg/dL (9-16); Calcium 8.7 mg/dL (8.4-10.2); Carbon Dioxide 31 mmol/L (22-29); Chloride 112 mmol/L (96-108); Creatinine Clr Calc Pharmacy 115.8; Estimated Glomerular Filt Rate > 60; Potassium 3.6 mmol/L (3.3-5.1); Sodium 151 mmol/L (135-145)
[2025-07-30 04:00] VITALS: BP 162/71; PULSE 80; RESP 14; TEMP 36.1; O2SAT 96
[2025-07-30 08:00] VITALS: BP 135/69; PULSE 80; RESP 15; TEMP 36.6; O2SAT 98
[2025-07-30] MEDS: 0.9 % Sodium Chloride Flush 3 ML SYRINGE IVFLUSH ×3 (08:54→21:33)
[2025-07-30] MEDS: Amoxicillin/Potassium Clav 4,000 MG/50 ML SUSP.RECON 875 MG G-TUBE ×2 (08:56→21:30)
--- NOTE | 2025-07-30 10:11 | HO.PM.IMPN ---
Subjective Subjective Date of Service: 07/30/25 Interval History: f/u on aspiration PNA Need for placement No new issues, asking to be transfered to [facility] Physical Exam Exam: Exam: alert, delusion, no focal deficity, cardiompulmary exam unremarkable. Vital Signs: Vital Signs: Last Vital Signs Temp 97.9 F 07/30/25 08:00 Pulse 80 07/30/25 08:00 Resp 15 07/30/25 08:00 BP 135/69 07/30/25 08:00 Pulse Ox 98 07/30/25 08:00 O2 Del Method Room Air 07/30/25 08:00 O2 Flow Rate 4 07/23/25 11:00 FiO2 55 07/22/25 19:00 Oxygen Flow Rate 50 07/22/25 12:40 BMI result Body Mass Index 24.7 Objective Data Active Medications Acetaminophen (Acetaminophen 325 Mg Tablet) 650 mg PO Q6H PRN PRN Reason: Pain, Mild 1-3,fever,headache Last Admin: 07/24/25 18:32 Dose: 650 mg Documented By: WARREN Acetaminophen (Acetaminophen 325 Mg Tablet) 975 mg G-TUBE TID [facility] Last Admin: 07/30/25 08:55 Dose: 975 mg Documented By: MERCEDES Albuterol/Ipratropium (Albuterol/Iprat 2.5/0.5mg 3 Ml Ampul.Neb) 3 ml INHALE Q6H PRN PRN Reason: Shortness of Breath Amoxicillin/Clavulanate Potassium (Amoxicillin/Potassium Clav 4,000 Mg/50 Ml Susp.Recon) 875 mg G-TUBE BID [facility] Stop: 07/31/25 20:59 Last Admin: 07/30/25 08:56 Dose: 875 mg Documented By: MERCEDES Atorvastatin Calcium (Atorvastatin Calcium 40 Mg Tablet) 40 mg G-TUBE BEDTIME [facility] Last Admin: 07/29/25 20:29 Dose: 40 mg Documented By: GILDA Bisacodyl (Bisacodyl 10 Mg Supp.Rect) 10 mg [place] DAILY PRN PRN Reason: Constipation Calcium Carbonate (Calcium Carbonate 750 Mg Tab.Chew) 750 mg PO Q4H PRN PRN Reason: Heartburn Calcium Carbonate (Calcium Carbonate 750 Mg Tab.Chew) 750 mg G-TUBE TID PRN PRN Reason: Heartburn Capsaicin (Capsaicin 0.025% Cream 60 Gm Tube) 1 appl TOPICAL TID PRN; Protocol PRN Reason: Pain, Moderate(Pain Scale 4-6) Clozapine (Clozapine 100 Mg Tablet) 200 mg G-TUBE DAILY@1700 [facility] Last Admin: 07/29/25 16:48 Dose: 200 mg Documented By: JAZLYN Clozapine (Clozapine 25 Mg Tablet) 50 mg G-TUBE DAILY@1100 [facility] Last Admin: 07/29/25 11:19 Dose: 50 mg Documented By: JAZLYN Doxazosin Mesylate (Doxazosin Mesylate 1 Mg Tablet) 1 mg PO BEDTIME [facility]; Protocol Last Admin: 07/29/25 20:24 Dose: 1 mg Documented By: GILDA Enoxaparin Sodium (Enoxaparin Sodium 40 Mg/0.4 Ml Syringe) 40 mg SUBCUT Q24H [facility] Last Admin: 07/29/25 11:19 Dose: 40 mg Documented By: JAZLYN Gabapentin (Gabapentin 300 Mg Capsule) 300 mg G-TUBE BEDTIME [facility] Last Admin: 07/29/25 20:29 Dose: 300 mg Documented By: GILDA Gabapentin (Gabapentin 100 Mg Capsule) 100 mg G-TUBE DAILY [facility] Last Admin: 07/30/25 08:56 Dose: 100 mg Documented By: MERCEDES Haloperidol (Haloperidol 1 Mg Tablet) 2 mg G-TUBE BID PRN PRN Reason: Agitation Haloperidol (Haloperidol 1 Mg Tablet) 1 mg G-TUBE DAILY [facility] Last Admin: 07/30/25 08:56 Dose: 1 mg Documented By: MERCEDES Haloperidol (Haloperidol 1 Mg Tablet) 3 mg G-TUBE BEDTIME [facility] Last Admin: 07/29/25 20:28 Dose: 3 mg Documented By: GILDA Magnesium Hydroxide (Milk Of Magnesia 30 Ml Oral.Susp) 30 ml PO DAILY PRN PRN Reason: Constipation Melatonin (Melatonin 3 Mg Tablet) 6 mg PO BEDTIME PRN PRN Reason: Insomnia Ondansetron HCl (Ondansetron Hcl 4 Mg/2 Ml Vial) 4 mg IVPUSH Q8H PRN PRN Reason: Vomiting Sodium Chloride (0.9 % Sodium Chloride Flush 3 Ml Syringe) 3 ml IVFLUSH QSHIFT [facility] Last Admin: 07/30/25 08:54 Dose: 3 ml Documented By: MERCEDES Trazodone HCl (Trazodone Hcl 50 Mg Tablet) 150 mg G-TUBE BEDTIME [facility] Last Admin: 07/29/25 20:30 Dose: 150 mg Documented By: GILDA Valproic Acid (Valproic Acid Liquid 250 Mg/5 Ml Solution) 1,000 mg G-TUBE BID@1100,1700 [facility] Last Admin: 07/29/25 16:48 Dose: 1,000 mg Documented By: JAZLYN Labs 07/29/25 18:05 07/29/25 18:05 Labs: Laboratory Results - last 24 hr 07/29/25 18:05 MCV 91.0 MCH 31.8 MCHC 34.9 RDW 14.6 Plt Count 203 MPV 9.3 L Absolute Nucleated RBC 0.000 Nucleated RBC % (auto) 0.0 Anion Gap 12 Estim Creat Clear Calc 115.8 Estimated GFR > 60 Random Glucose 155 H Calcium 8.7 D Microbiology Microbiology Results: Microbiology 07/22/25 13:17 Blood Culture - Final Blood - Venous No growth after 5 days. 07/22/25 13:17 Blood Culture - Final Blood - Venous No growth after 5 days. Assessment and Plan (1) Schizophrenia: Status: Acute (2) Dysphagia: Status: Acute (3) PEG tube malfunction: Status: Acute (4) Chronic pulmonary aspiration: Status: Acute Plan 70-year-old male with schizoaffective disorder on clozapine, admitted from [facility] after an 8-week hospitalization for persistent suicidal ideation. During his stay, he aspirated after a small comfort feed, requiring brief ICU care with pressors. Now stable and off pressors, he was transferred to the medical floor, as geriatric psychiatry and the care team have determined he is no longer appropriate for their unit. Placement remains challenging due to ongoing psychiatric and medical complexity. Aspiration Pneumonia (post-ICU, now stable): Developed after comfort feeding (vanilla pudding); required brief pressor support in ICU. Now hemodynamically stable and transitioned to medical floor. Switched IV antibiotics to G-tube Augmentin to complete a 7-day course. Dysphagia with High Aspiration Risk: Longstanding dysphagia with repeated aspiration events, including recent episode despite improved barium swallow. Strict NPO except for G-tube feeds and medications, PEG was replaced by surgery 07/27 Continue tube feeding (Vital 1.5 at 85 mL/hr for 16 hours, 240 mL free water flush every 4 hours). HOB elevated 30?45?. Patient desires occasional pleasure feeds (ice cream, pudding) and is aware of aspiration risk, though capacity for full understanding is unclear; healthcare proxy invoked. Schizoaffective Disorder/Depression: Managed on clozapine and current psychiatric regimen; no medication changes needed per psychiatry. Ongoing severe paranoid delusions and behavioral challenges complicate placement and care. Psychiatry available for consultation as needed. Obstructive Sleep Apnea (LOUANN): Diagnosed during recent hospitalization. Continue O2 and nebulizer treatments as needed. Use PRN CPAP. Placement/Disposition: Placement is highly complex due to persistent paranoid delusions, refusal of care, and safety risks. Patient is not a candidate for return to geriatric psychiatry unit per Psych team Social work and case management actively seeking a facility capable of managing high-acuity psychiatric and medical needs. Other: Rectal tube removed due to discomfort and formed stool. Continue routine care and monitoring. Summary: Medically stable post-aspiration pneumonia, but ongoing high aspiration risk, severe psychiatric illness, and complex placement needs due to behavioral issues and impaired capacity. Multidisciplinary team involved in ongoing care and disposition planning. Quality Stroke Does the patient have a stroke diagnosis?: No VTE Prior VTE?: No VTE Risk Level:: Medical - moderate - high VTE Device Contraindication: Treatment Not Indicated VTE Drug Contraindication: N/A - Med Ordered
[2025-07-30 11:47] VITALS: BP 133/79; PULSE 84; RESP 16; TEMP 36.2; O2SAT 99
[2025-07-30] MEDS: Valproic Acid Liquid 250 MG/5 ML SOLUTION 1000 MG G-TUBE ×2 (12:14→16:00)
--- NOTE | 2025-07-30 14:17 | MHC.CM.PN ---
Addendum entered by Terri Watson 07/30/25 15:27: [facility] [place] HAS OFFERED A BED. PT/HCP /BROTHER DANIEL HAVE ACCEPTED THE BED AND WILL TRANSPORT TO CENTER 07/31 AT 11 AM. AWARE. Original Note: CM EXPANDED REFERRALS THROUGHOUT [facility]. [facility] SHOWING INTEREST BUT REQUESTING COPY OF POA, COPY PROVIDED BY BROTHER DANIEL AND SENT VIA [facility]. CM WILL CONTINUE TO FOLLOW FOR A BED OFFER.
--- NOTE | 2025-07-30 15:54 | P.PNVS_ITS ---
Subjective Subjective Date of Service: 07/30/25 Patient reports: no new complaints and feels better Interval history: Complex 70-year-old gentleman presents for routine follow-up. I had originally seen him in the ICU with arterial line in the left carotid. At the current time he is doing significantly better. He now presents for routine vascular follow- up. Physical Exam Vital Signs: Vital Signs: Last Vital Signs Temp 97.2 F 07/30/25 11:47 Pulse 84 07/30/25 11:47 Resp 16 07/30/25 11:47 BP 133/79 07/30/25 11:47 Pulse Ox 99 07/30/25 11:47 O2 Del Method Room Air 07/30/25 11:47 O2 Flow Rate 4 07/23/25 11:00 FiO2 55 07/22/25 19:00 Oxygen Flow Rate 50 07/22/25 12:40 BMI result Body Mass Index 24.7 Const: General: cooperative, healthy appearing and no acute distress Orientation/consciousness: oriented to person, oriented to place and oriented to time HEENT: Head: Yes normal to inspection Neck: Other: Left neck no hematoma Carotids: no bruits Chest: Chest palpation & inspection: normal inspection of the chest Resp: Effort & Inspection: normal respiratory effort and able to speak in complete sentences Auscultation: clear to auscultation bilaterally Cardio: Rate: regular rate Heart sounds: S1 normal heart sound present and S2 normal heart sound present GI: Inspection: Yes normal to inspection Skin: General skin exam: no rashes or lesions noted Wounds: no wounds Neuro: General: oriented to person, oriented to place, oriented to time and CN's II-XI intact bilaterally Extrem: General: Yes normal to inspection, Yes full ROM and Yes no clubbing, cyanosis or edema Psych: Appearance: grossly normal and well kempt Speech and movement: Normal speech and movement present Affect: normal affect Progress Note: A&P Assessment and plan (1) Septic shock: Status: Acute Assessment and Plan: In short patient is doing well. Line follow-up. Left neck appears to be doing extremely well with no evidence of hematoma. No residual deficits. We will follow on a p.r.n. basis. Thank you for allowing us to assist in his care. Time Spent With Patient Time: Total time managing care of this patient today ____ minutes. Procedures Date of Service Date of Service: 07/30/25 Quality Stroke Does the patient have a stroke diagnosis?: No VTE Prior VTE?: No VTE Risk Level:: Medical - moderate - high VTE Device Contraindication: Treatment Not Indicated VTE Drug Contraindication: N/A - Med Ordered
[2025-07-30 16:00] VITALS: BP 130/72; PULSE 84; RESP 20; TEMP 36.4; O2SAT 99
[2025-07-30 20:00] VITALS: BP 148/73; PULSE 84; RESP 19; TEMP 36.3; O2SAT 97
[2025-07-30 23:14] VITALS: BP 136/67; PULSE 73; RESP 16; TEMP 36.5; O2SAT 98
[2025-07-31 03:32] VITALS: BP 147/65; PULSE 84; RESP 16; TEMP 36.1; O2SAT 99
[2025-07-31 06:00] VITALS: BMI 25.6
[2025-07-31 07:53] VITALS: BP 121/73; PULSE 84; RESP 18; TEMP 36.6; O2SAT 98
[2025-07-31 08:10] VITALS: PULSE 84; RESP 18; O2SAT 98
--- NOTE | 2025-07-31 08:55 | P.DS_ITS ---
DS: Providers Provider Date of Service: 07/31/25 Date of admission: 07/22/25 12:54 Date of discharge: 07/31/25 Primary care physician: Unknown Physician Consults: 07/22/25 14:29 Consult to Wound Care Routine Reason for consultation: red right heel & bilat buttocks, all blanchable. 07/22/25 14:53 Consult to Psychiatry Routine Consulting Provider: [facility] Covering Reason for consultation: schizo 07/22/25 22:03 Consult to Vascular Surgery Routine Consulting Provider: [facility] [place] V[facility] Services Reason for consultation: Left neck A line removal Has provider been notified: Yes 07/24/25 10:19 Inpt CARE Team Crisis Consult Routine Comment: Reason for consultation: medically cleared 07/27/25 07:15 Consult to General Surgery Routine Consulting Provider: [facility] General Surgeons Reason for consultation: abd distension DS: Diagnosis Discharge Diagnosis (1) Septic shock: Status: Acute DS: Summary Hospital Course Hospital Course: 70-year-old male with a history of schizoaffective disorder, hypertension, chronic kidney disease, coronary artery disease, L4-L5 laminectomy, BPH, GERD, and severe obstructive sleep apnea (LOUANN) on CPAP (5?20 cm auto mode). He also has oropharyngeal dysphagia with frequent aspiration, requiring a PEG tube for nutrition. He has a longstanding history of dysphagia, with the most recent barium swallow in May 2025 confirming continued high risk for aspiration; tube feeding is recommended as the sole method of nutrition. The patient was initially admitted to the geriatric psychiatry unit from [facility], where he had been hospitalized for altered mental status, with his course complicated by COVID-19 infection. He also experienced psychosis and suicidal ideation, prompting transfer to this facility on 06/26/25. On 06/27/25, he was transferred to the hospitalist service due to lethargy and episodes of apnea. However, during his stay on the hospitalist service, he was awake, alert, and able to manage his secretions without difficulty. Psychiatry was consulted, and his medication regimen was deemed unlikely to contribute to excess sedation. An inpatient sleep study revealed severe LOUANN with an AHI of 32 events per hour and a franklyn oxygen saturation of 78%. He was started on auto-titrating CPAP (5?20 cm). Tube feeds were restarted and advanced to goal. A modified barium swallow study at [facility] showed severe aspiration, and NPO status was recommended except for comfort feeding, which should only be provided if the patient fully understands the risks. On 06/30/25, he was transferred back to the geriatric psychiatry service for ongoing psychiatric care. On 07/22/25, he was given pudding for comfort feeding, which resulted in respiratory failure and hypoxia, necessitating ICU admission for septic shock and aspiration pneumonia. He required vasopressors and antibiotics but recovered well. He is now strictly prohibited from any oral intake. Psychiatrically, he has remained stable on his current medication regimen. Therapy recommends short-term rehabilitation for less than 30 days. Time Attestation Discharge Coordination Time (in mins): 45 Quality: Safe Use of Opioids Does Pt have an Active Cancer Diagnosis on the Problem List?: No Quality: Stroke Does the patient have a stroke diagnosis?: No Physical Exam Vital Signs: Vital Signs: Last Vital Signs Temp 97.8 F 07/31/25 07:53 Pulse 84 07/31/25 07:53 Resp 18 07/31/25 08:10 BP 121/73 07/31/25 07:53 Pulse Ox 98 07/31/25 07:53 O2 Del Method Room Air 07/31/25 07:53 O2 Flow Rate 4 07/23/25 11:00 FiO2 55 07/22/25 19:00 Oxygen Flow Rate 50 07/22/25 12:40 BMI result Body Mass Index 25.6 Const: Other: General: AO X 3, no acute distress Resp: CTA bilateral CVS: S1,S2,RRR GI: +BS, NT, no distention Skin: No rash Neuro: motor grossly intact Psych: appropriate affect Discharge Plan Discharge Anticipated Discharge Date/Time: 07/31/25 08:28 Patient Disposition: er [facility] Discharge Diagnosis: Aspiration pneumonia, dysphagia Referrals: [facility] [Outside] - 1 Week Referral Note: TRANSFER FOR SHORT TERM REHAB/PENITENTIARY CARE Physician,Unknown J [Primary Care Provider, Medical] - 1 Week Discharge Medications: Continued ipratropium-albuterol 0.5 mg-3 mg(2.5 mg base)/3 mL Solution For Nebulization 3 ml inhalation Q6H PRN (Reason: Shortness Of Breath) Qty: 0 0RF atorvastatin 40 mg Tablet 40 mg G-tube BEDTIME Qty: 0 0RF acetaminophen 325 mg Tablet 975 mg G-tube TID Qty: 0 0RF lidocaine [Lidocaine Pain Relief] 4 % Adhesive Patch,Medicated 1 patch transdermal DAILY Qty: 0 0RF Protocol: Apply to: Apply to: affected area trazodone 50 mg Tablet 150 mg G-tube BEDTIME Qty: 0 0RF doxazosin 1 mg Tablet 1 mg PO BEDTIME Qty: 0 0RF Protocol: Hold for SBP< HOLD for SBP < : 90 clozapine 100 mg Tablet 200 mg G-tube DAILY@1700 Qty: 0 0RF haloperidol 1 mg Tablet 1 mg G-tube DAILY Qty: 0 0RF haloperidol 1 mg Tablet 3 mg G-tube BEDTIME Qty: 0 0RF haloperidol 1 mg Tablet 2 mg G-tube BID PRN (Reason: Agitation) Qty: 0 0RF Antacid Ext Str (calcium carb) 300 mg (750 mg) Tablet,Chewable 2.5 tab G-tube TID PRN (Reason: Heartburn) Qty: 0 0RF famotidine 20 mg Tablet 20 mg G-tube BID Qty: 0 0RF bisacodyl [Gentle Laxative (bisacodyl)] 10 mg Suppository 10 mg NM DAILY PRN (Reason: Constipation) Qty: 0 0RF gabapentin 300 mg Capsule 300 mg G-tube BEDTIME Qty: 0 0RF capsaicin 0.025 % Cream 1 appl topical TID PRN (Reason: Pain, Moderate(Pain Scale 4-6)) Qty: 0 0RF Protocol: Apply to: Apply to: affected area lower back gabapentin 100 mg Capsule 100 mg G-tube DAILY Qty: 0 0RF clozapine 25 mg Tablet 50 mg G-tube DAILY@1100 Qty: 0 0RF simethicone 80 mg Tablet,Chewable 80 mg G-tube Q6H PRN (Reason: Dyspepsia) Qty: 0 0RF valproic acid (as sodium salt) 250 mg/5 mL (5 mL) Solution 1,000 mg G-tube BID@1100,1700 Qty: 0 0RF Discontinued metronidazole 500 mg Tablet 500 mg PO Q12H Qty: 0 0RF scopolamine base [Transderm-Scop] 1 mg over 3 days Patch 3 Day 1.5 mg EAR-BEHIND Q72H Qty: 0 0RF lisinopril 2.5 mg Tablet 2.5 mg PO DAILY Qty: 0 0RF Protocol: Hold for SBP< HOLD for SBP < : 90 Discharge Orders: Discharge Order (Routine); Ordered 07/31/25 Ordered By: Rob Winston Diet: Tube feed Activity on Discharge: As tolerated Stand Alone Forms: Patient Portal Discharge page Print Language: Croatian Care Plan Goals: recovery from prolonged hospitalization for decompensated schizophrenia requiring prolonged hospitalization, recurent aspiration pneumonia Health Concerns: recurrent aspiration, aspiration pneumonia, severe dysphagia and doesn't tolerate oral intake at all schizophreniaa Plan of Treatment: To short term rehab for less than 30 days continue all medication as prescribe Oral intake food or drink should be strickly prohibited Tube feed with: Osmolite 1.5 rune for 24 hours , rate of 70 mls/hr, 300 ml water every 6 hours via PEG Assessment: see above
[2025-07-31] MEDS: 0.9 % Sodium Chloride Flush 3 ML SYRINGE IVFLUSH (08:58)
--- NOTE | 2025-07-31 09:05 | MHC.CM.PN ---
DP: PT HAS BEEN MEDICALLY CLEARED FOR DC TO [facility] WITH TRANSITION TO LTC AT [facility]. PT/BROTHER ARE AGREEABLE TO PLAN. BLS TRANSPORT BOOKED FOR 11 AM VIA [facility]. RN/MD AWARE. FINAL IMM ISSUED.
[2025-07-31] MEDS: Amoxicillin/Potassium Clav 4,000 MG/50 ML SUSP.RECON 875 MG G-TUBE (09:23)
[2025-07-31] MEDS: Valproic Acid Liquid 250 MG/5 ML SOLUTION 1000 MG G-TUBE (10:33)
[2025-07-31 10:47] VITALS: BP 120/74; PULSE 85; RESP 16; TEMP 36.2; O2SAT 99
== END 2025-07-31 11:06 | disposition skilled nursing facility (03) | DRG 871 ==
LOC: HO.ICU 07-23 16:07 → HO.IMC 07-23 18:12 → HO.S3 07-26 03:49
PROVIDERS: Internal Medicine Critical Care Medicine; Physician Assistant Medical; Admitting Provider Nurse Practitioner Family; Visit Provider Internal Medicine
DX: A41.9 Sepsis, unspecified organism (principal); J69.0 Pneumonitis due to inhalation of food and vomit; J96.01 Acute respiratory failure with hypoxia; R65.21 Severe sepsis with septic shock; E87.0 Hyperosmolality and hypernatremia; K94.23 Gastrostomy malfunction; I12.9 Hypertensive chronic kidney disease with stage 1 through stage 4 chronic kidney disease, or unspecified chronic kidney disease; N18.9 Chronic kidney disease, unspecified; F25.9 Schizoaffective disorder, unspecified; F32.A Depression, unspecified; R13.10 Dysphagia, unspecified; I25.10 Atherosclerotic heart disease of native coronary artery without angina pectoris; G47.33 Obstructive sleep apnea (adult) (pediatric); Z79.899 Other long term (current) drug therapy
CPT/HCPCS: 36415; 71045; 72170; 80048; 80053; 81001; 82803; 83605; 83735; 83880; 84100; 85007; 85027; 85048; 87040; 87493; 87507; 93306; 94660; 97162; 97530; J0131; J1650; J1938; J2470; J2543; J2704; J7120; P9047; Q9957

== ENCOUNTER → 2025-07-22 12:54 | Outpatient (BNV) | payer MEDICARE, SELFPAY | PROVIDERS: Admitting Provider Nurse Practitioner Family; Visit Provider Student in an Organized Health Care Education/Training Program | DX: A41.9 Sepsis, unspecified organism (principal); R65.21 Severe sepsis with septic shock | CPT/HCPCS: 99232; 99239; 99499 ==

== ENCOUNTER → 2025-07-22 12:54 | Outpatient (BNV) | payer MEDICARE, SELFPAY | PROVIDERS: Admitting Provider Nurse Practitioner Family; Visit Provider Internal Medicine Critical Care Medicine | DX: J96.00 Acute respiratory failure, unspecified whether with hypoxia or hypercapnia (principal); A41.9 Sepsis, unspecified organism; R65.21 Severe sepsis with septic shock; F20.9 Schizophrenia, unspecified; G47.33 Obstructive sleep apnea (adult) (pediatric) | CPT/HCPCS: 36556; 99291 ==

== ENCOUNTER → 2025-07-22 12:54 | Outpatient (BNV) | payer MEDICARE, SELFPAY | PROVIDERS: Admitting Provider Nurse Practitioner Family; Visit Provider Physician Assistant Surgical | DX: K94.23 Gastrostomy malfunction (principal) | CPT/HCPCS: 99232; 99499 ==

== ENCOUNTER → 2025-07-22 12:54 | Outpatient (BNV) | payer MEDICARE, SELFPAY | PROVIDERS: Admitting Provider Nurse Practitioner Family; Visit Provider Surgery Vascular Surgery | DX: A41.9 Sepsis, unspecified organism (principal); R65.21 Severe sepsis with septic shock | CPT/HCPCS: 99222 ==

== ENCOUNTER → 2025-07-22 12:54 | Outpatient (BNV) | payer MEDICARE, SELFPAY | PROVIDERS: Admitting Provider Nurse Practitioner Family; Visit Provider Social Worker | DX: F20.0 Paranoid schizophrenia (principal) | CPT/HCPCS: 99232 ==

== ENCOUNTER 2025-08-05 04:01 | Inpatient (IN) | payer MEDICARE, SELFPAY ==
[2025-08-05] VITALS (28 sets, daily range): BP systolic 90–136; BP diastolic 40–81; PULSE 100–135; RESP 16–34; TEMP 36.2–38.6; O2SAT 82–96; BMI 24.1; BMI 23.6; BMI 22.9
--- NOTE | 2025-08-05 | ECG_ITS ---
Test Reason : TACHYCARDIA Blood Pressure : */* mmHG Vent. Rate : 142 BPM Atrial Rate : 142 BPM P-R Int : 130 ms QRS Dur : 82 ms QT Int : 286 ms P-R-T Axes : 78 -42 76 degrees QTcB Int : 439 ms Sinus tachycardia Left axis deviation Abnormal ECG When compared with ECG of 22-Jul-2025 10:29, Fusion complexes are no longer Present T wave amplitude has increased in Anterior leads Referred By: Generic ED Physician Electronically Signed By: Clifton Flowers
--- NOTE | ~2025-08-05 | XR_ITS ---
CLINICAL HISTORY: dyspnea 1 view chest x-ray. Comparison: CR - XR CHEST 1V - 07/22/25 20:[address]/SR - CT CHEST WITHOUT IV CONTRAST - 07/22/25 08:59 EDT Findings: Interval removal of left central line. Persistent bibasilar consolidations. No pleural effusion. No pneumothorax. Stable cardiomediastinal silhouette. Similar postsurgical changes of the right shoulder. IMPRESSION: Interval removal of left neck central line. Persistent bibasilar consolidations. This document has been electronically signed by: Carter Patel MD on 08/05/2025 04:51:00
--- NOTE | 2025-08-05 04:08 | ED.GENADULT ---
HPI - General Adult General Chief complaint: Dyspnea Stated complaint: ISAAC ZAMORANO ALERT Time Seen by Provider: 08/05/25 04:08 Source: patient, RN notes reviewed and old records reviewed Mode of arrival: EMS Limitations: altered mental status History of Present Illness ED Provider: Lynn DA SILVA narrative: 70-year-old male with a past medical history significant for severe dysphagia chronic chronic pulmonary aspiration, schizophrenia, sleep apnea, vascular dementia presents for evaluation of respiratory distress. The patient is coming from [facility]. Apparently he was found to be short of breath. EMS reports that he was about 84-85 percent on room air The patient was discharged on 07/31/2025 after a long stayed that initially started as a psychiatric admission than he was admitted for acute hypoxic respiratory failure favored to be related to aspiration pneumonitis. The patient has a PEG tube in his supposed to be NPO. The patient reports shortness of breath starting today only. He admits that he drank water and had putting last night He is aware that he is not supposed to be doing in his due to his high risk for aspiration He is not currently on antibiotics He complains of shortness of breath, weakness and mid back pain Related Data Previous Rx's ?Medication ?Instructions ?Recorded acetaminophen 325 mg tablet 975 mg (3 x 325 mg) G-tube TID #0 07/22/25 tabs atorvastatin 40 mg tablet 40 mg G-tube BEDTIME #0 tabs 07/22/25 bisacodyl 10 mg rectal suppository 10 mg VT DAILY PRN Constipation #0 07/22/25 (Gentle Laxative (bisacodyl)) ea calcium carbonate (Antacid Ext Str 2.5 tab G-tube TID PRN Heartburn 07/22/25 (calcium carb)) #0 tabs capsaicin 0.025 % topical cream 1 appl topical TID PRN Pain, 07/22/25 Moderate(Pain Scale 4-6) #0 grams clozapine 100 mg tablet 200 mg (2 x 100 mg) G-tube 07/22/25 DAILY@1700 #0 tabs clozapine 25 mg tablet 50 mg (2 x 25 mg) G-tube 07/22/25 DAILY@1100 #0 tabs doxazosin 1 mg tablet 1 mg PO BEDTIME #0 tabs 07/22/25 famotidine 20 mg tablet 20 mg G-tube BID #0 tabs 07/22/25 gabapentin 100 mg capsule 100 mg G-tube DAILY #0 caps 07/22/25 gabapentin 300 mg capsule 300 mg G-tube BEDTIME #0 caps 07/22/25 haloperidol 1 mg tablet 1 mg G-tube DAILY #0 tabs 07/22/25 haloperidol 1 mg tablet 2 mg (2 x 1 mg) G-tube BID PRN 07/22/25 Agitation #0 tabs haloperidol 1 mg tablet 3 mg (3 x 1 mg) G-tube BEDTIME #0 07/22/25 tabs ipratropium 0.5 mg-albuterol 3 mg 3 ml inhalation Q6H PRN Shortness 07/22/25 (2.5 mg base)/3 mL nebulization Of Breath #0 mL soln lidocaine 4 % topical patch 1 patch transdermal DAILY #0 ea 07/22/25 (Lidocaine Pain Relief) simethicone 80 mg chewable tablet 80 mg G-tube Q6H PRN Dyspepsia #0 07/22/25 tabs trazodone 50 mg tablet 150 mg (3 x 50 mg) G-tube BEDTIME 07/22/25 #0 tabs valproic acid (as sodium salt) 250 1,000 mg (20 mL) G-tube 07/22/25 mg/5 mL (5 mL) oral solution BID@1100,1700 #0 mL Allergies Allergy/AdvReac Type Severity Reaction Status Date / Time morphine Allergy Itching Verified 08/05/25 04:33 Review of Systems Constitutional: Constitutional: Denies body ache(s), Denies chills, Denies fever(s), Reports malaise and Reports weakness Eyes: Eyes: Denies blurry vision ENT: Denies vertigo and Denies dizziness Cardiovascular: Cardiovascular: Denies chest pain, Reports dyspnea and Reports dyspnea on exertion Respiratory: Respiratory: Reports change in phlegm color, Reports chest congestion, Reports cough, Reports excessive phlegm production, Reports pain on inspiration, Reports pain with cough, Reports dyspnea and Reports dyspnea on exertion Gastrointestinal: Gastrointestinal: Denies abdominal pain, Denies nausea and Denies vomiting Musculoskeletal: Musculoskeletal: Reports back pain Integumentary/Breasts: Skin/Breast: Denies rash Neurologic: Denies vertigo, Denies dizziness and Reports weakness Psychiatric: Psychiatric: Denies anxiety PMFSH Past Medical History Medical History (Updated 08/05/25 @ 06:14 by Carter Bailey) PEG tube malfunction Gout BPH (benign prostatic hyperplasia) GERD (gastroesophageal reflux disease) Erectile dysfunction 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 Comment: 1:1 sitter Patient Tobacco Use Status: Never used Tobacco Smoked in Last 30 Days: No e-Cigarette/Vaping Use: Never Used Second Hand Smoke Exposure: No Use of substances other than those prescribed or required for medical reasons: No Advance Directives: Yes Advance Directives on File: Yes Advance Directives Date on File: 06/26/25 service: No Sexual orientation: Straight/Heterosexual Physical Exam ED Vital Signs: Vital Signs - 24 hr 08/05/25 04:29 08/05/25 04:47 08/05/25 05:40 Temperature Pulse Rate 134 H 135 H Respiratory Rate 34 H 28 H 20 Blood Pressure 135/40 L Pulse Oximetry 90 L Oxygen Delivery Method CPAP High Flow Nasal Cannula Oxygen Flow Rate Fraction of Inspired Oxygen 100 08/05/25 06:02 08/05/25 06:10 08/05/25 07:04 Temperature 101.5 F H Pulse Rate 129 H 130 H Respiratory Rate 24 H 22 H 23 H Blood Pressure 104/53 L 114/62 Pulse Oximetry 95 90 L Oxygen Delivery Method High Flow Nasal Cannula Room Air Oxygen Flow Rate Fraction of Inspired Oxygen 08/05/25 07:37 08/05/25 08:03 08/05/25 08:15 Temperature Pulse Rate 115 H Respiratory Rate 26 H 22 H 25 H Blood Pressure 90/48 L Pulse Oximetry 92 Oxygen Delivery Method High Flow Nasal Cannula Oxygen Flow Rate Fraction of Inspired Oxygen 08/05/25 08:34 08/05/25 08:36 Temperature Pulse Rate 110 H Respiratory Rate 24 H Blood Pressure 104/53 L Pulse Oximetry 93 Oxygen Delivery Method Oxymask Oxygen Flow Rate 10 Fraction of Inspired Oxygen BMI result Body Mass Index 24.1 Const General: alert, awake, acute distress respiratory and ill appearing; No healthy appearing Nutritional Appearance: well nourished [facility] Head: Yes normocephalic and Yes atraumatic Eyes Eyelids: Yes eyelids normal Conjunctivae: conjunctivae normal Sclerae: sclerae normal Corneas: corneas normal Pupils: Equal, round and reactive pupils present EOM: EOMs intact bilaterally Neck Neck: Yes full ROM Resp Effort & Inspection: abnormal respiratory effort, not able to speak in complete sentences, audible wheezes, Actively coughing, labored and nasal flaring Auscultation: not clear to auscultation bilaterally and rhonchi Cardio Other: No lower extremity edema Rate: tachycardic Rhythm: regular rhythm GI Inspection: No distended and Yes G-tube present Palpation (GI): Soft to palpation, not firm, nontender, no guarding and not rigid Skin General skin exam: elasticity normal Neuro Cranial nerves: Yes Equal, round and reactive pupils present and Yes Bilaterally intact EOM present Extrem Other: Moving all extremities well without any obvious deformities Course Reevaluation(s) Reevaluation #1: The patient's oxygen saturation was 100 percent on BiPAP at 100 percent FiO2. He was continuing to rip his BiPAP mask off. Therefore he was transitioned to high-flow. He does not have any documented history of COPD. Patient is signed out to overnight staff with anticipated admission Time: 06:14 Medications Administered Discontinued Medications Generic Name Dose Route Start Last Admin Trade Name Freq PRN Reason Stop Dose Admin Piperacillin Sod/Tazobactam 50 mls @ 100 mls/hr 08/05/25 04:12 08/05/25 05:25 Sod 3.375 gm/ Sodium Chloride IV 08/05/25 04:41 Infused ONCE ONE Infusion Sodium Chloride 1,000 mls @ 999 mls/hr 08/05/25 04:15 08/05/25 06:10 Ns IV 08/05/25 05:15 Infused .Q1H1M CLAUDIA Infusion Vancomycin HCl 1,500 mg/ 500 mls @ 333.333 mls/hr 08/05/25 04:19 08/05/25 06:50 Sodium Chloride IV 08/05/25 05:48 Infused ONCE ONE Infusion Sodium Chloride 1,000 mls @ 999 mls/hr 08/05/25 04:30 08/05/25 07:08 Ns IV 08/05/25 05:30 Not Given .Q1H1M CLAUDIA Acetaminophen 1,000 mg in 100 mls @ 400 mls/hr 08/05/25 07:24 08/05/25 08:00 Ofirmev IV 08/05/25 07:38 Infused ONCE ONE Infusion Lactated Ringer's 2,217 mls @ 2,217 mls/hr 08/05/25 07:35 08/05/25 07:37 Lr 30 ml/kg infuse over 1 hr (2217 ml) 08/05/25 08:34 2,217 mls/hr IV Administration .Q1H ONE Medical Decision Making Medical Decision Making [facility] Narrative: 70-year-old female with a past medical history significant for chronic aspiration with a PEG tube in place, schizophrenia and dementia presents for evaluation of acute hypoxic respiratory failure. The patient was in respiratory distress on arrival to the ED, he was around 90 percent on CPAP. He was transitioned to BiPAP immediately on arrival. Given his significant and diffuse rhonchi I have a high suspicion for aspiration pneumonitis. He admits to drinking water and having putting last night. He was also recently admitted, therefore we will treat with vancomycin and Zosyn. He was given IV fluids, 1 liter. He does not meet severe sepsis criteria, he is not hypotensive, febrile in his lactate is less than 4. He was treated for sepsis with broad-spectrum antibiotics and IV fluids.. Sepsis focused exam performed Differential Diagnosis Differential Diagnoses: The differential diagnosis associated with the presentation includes Aspiration pneumonitis Sepsis Hospital-acquired pneumonia Reacquired pneumonia CHF Admission/Observation Consideration of admission/observation: Escalation of care including admission/observation considered Patient will require admission for acute hypoxic respiratory failure likely secondary to aspiration pneumonitis Lab Data [facility] Lab Attestation statement: I reviewed the patient's lab results. The patient has a leukocytosis to 26.6k this is new when compared to his most recent labs from 1 week ago today when his white count was 8.5. The patient has a chronic normocytic anemia. He has a significant left shift today. The patient's lactate is elevated to 138, BNP is elevated to 338 which is actually improved when compared to his most recent pro BNP of 900. 08/05/25 04:16 08/05/25 05:09 Labs: Lab Results 08/05/25 08/05/25 08/05/25 Range/Units 04:16 04:20 05:09 WBC 26.6 H (4.8-10.8) X10*3/uL RBC 3.96 L D (4.60-5.80) X10*6/uL Hgb 12.5 L D (14.0-18.0) g/dl Hct 38.0 L D (42.0-52.0) % MCV 96.0 D (80.0-98.0) fL MCH 31.6 (27.0-33.0) pg MCHC 32.9 (31.0-36.0) g/dl RDW 16.4 H (11.0-16.0) % Plt Count 301 D (160-400) X10*3/uL MPV 11.2 (9.4-12.4) fL Immature Gran % (Auto) 0.8 H (0.0-0.4) % Neut % (Auto) 89.0 H (45-73) % Lymph % (Auto) 3.9 L (20-40) % [place] % (Auto) 6.1 (2-11) % Eos % (Auto) 0.0 (0-4) % Baso % (Auto) 0.2 (0-2) % Lymph # (Auto) 1.1 L (1.2-4.9) X10*3/uL [place] # (Auto) 1.6 H (0.1-1.2) X10*3/uL Eos # (Auto) 0.0 (0.0-0.4) X10*3/uL Baso # (Auto) 0.1 (0.0-0.2) X10*3/uL Abs Immat Gran (auto) 0.20 H (0.00-0.03) X10*3/uL Absolute Neuts (auto) 23.7 H (2.0-8.3) x10*3/uL Absolute Nucleated RBC 0.000 (0.0-0.012) X10*3/uL Nucleated RBC % (auto) 0.0 (0.0-0.2) /100WBC Smear Tech's Comments VERIFIED VBG pH 7.45 H (7.32-7.43) VBG pCO2 44 mmHg VBG pO2 38 mmHg VBG HCO3 31 H (22-26) mmol/L VBG O2 Saturation 50.0 % VBG Base Excess 6.5 mmol/L Sodium 147 H (135-145) mmol/L Potassium 4.9 D (3.3-5.1) mmol/L Chloride 107 (96-108) mmol/L Carbon Dioxide 28 (22-29) mmol/L Anion Gap 17 (12-20) BUN 37 H (9-16) mg/dL Creatinine 0.98 (0.5-1.4) mg/dL Estim Creat Clear Calc 72.1 Estimated GFR > 60 Random Glucose 129 H (60-115) mg/dL Lactic Acid 3.8 H* (0.5-2.0) mmol/L Lactic Acid F/U @ 2Hr (0.5-2.0) mmol/L Calcium 9.0 (8.4-10.2) mg/dL Total Bilirubin 0.7 (0.0-1.0) mg/dL AST 18 (5-37) U/L ALT 7 (0-40) U/L Alkaline Phosphatase 111 (39-117) U/L Troponin I High Sens 17.4 (<3.5-35.0) ng/L NT-Pro-B Natriuret Pep 338.0 H (<300) pg/mL Total Protein 6.5 (6.5-8.0) g/dL Albumin 3.5 (3.5-5.0) g/dL Influenza Type A (PCR) (Negative) Influenza Type B (PCR) (Negative) RSV RNA Qual (PCR) (Negative) SARS-CoV-2 RNA (RT-PCR) (Negative) 08/05/25 08/05/25 Range/Units 05:10 07:03 WBC (4.8-10.8) X10*3/uL RBC (4.60-5.80) X10*6/uL Hgb (14.0-18.0) g/dl Hct (42.0-52.0) % MCV (80.0-98.0) fL MCH (27.0-33.0) pg MCHC (31.0-36.0) g/dl RDW (11.0-16.0) % Plt Count (160-400) X10*3/uL MPV (9.4-12.4) fL Immature Gran % (Auto) (0.0-0.4) % Neut % (Auto) (45-73) % Lymph % (Auto) (20-40) % [place] % (Auto) (2-11) % Eos % (Auto) (0-4) % Baso % (Auto) (0-2) % Lymph # (Auto) (1.2-4.9) X10*3/uL [place] # (Auto) (0.1-1.2) X10*3/uL Eos # (Auto) (0.0-0.4) X10*3/uL Baso # (Auto) (0.0-0.2) X10*3/uL Abs Immat Gran (auto) (0.00-0.03) X10*3/uL Absolute Neuts (auto) (2.0-8.3) x10*3/uL Absolute Nucleated RBC (0.0-0.012) X10*3/uL Nucleated RBC % (auto) (0.0-0.2) /100WBC Smear Tech's Comments VBG pH (7.32-7.43) VBG pCO2 mmHg VBG pO2 mmHg VBG HCO3 (22-26) mmol/L VBG O2 Saturation % VBG Base Excess mmol/L Sodium (135-145) mmol/L Potassium (3.3-5.1) mmol/L Chloride (96-108) mmol/L Carbon Dioxide (22-29) mmol/L Anion Gap (12-20) BUN (9-16) mg/dL Creatinine (0.5-1.4) mg/dL Estim Creat Clear Calc Estimated GFR Random Glucose (60-115) mg/dL Lactic Acid (0.5-2.0) mmol/L Lactic Acid F/U @ 2Hr 3.7 H* (0.5-2.0) mmol/L Calcium (8.4-10.2) mg/dL Total Bilirubin (0.0-1.0) mg/dL AST (5-37) U/L ALT (0-40) U/L Alkaline Phosphatase (39-117) U/L Troponin I High Sens (<3.5-35.0) ng/L NT-Pro-B Natriuret Pep (<300) pg/mL Total Protein (6.5-8.0) g/dL Albumin (3.5-5.0) g/dL Influenza Type A (PCR) NEGATIVE (Negative) Influenza Type B (PCR) NEGATIVE (Negative) RSV RNA Qual (PCR) NEGATIVE (Negative) SARS-CoV-2 RNA (RT-PCR) NEGATIVE (Negative) Independent Interpretation I performed an independent interpretation of an: EKG Interpretation: EKG shows sinus tach at 142 Radiology Impression Discussion of test interpretation with radiology: I have reviewed the radiologist's reading. Radiologist Impression: Findings: Interval removal of left central line. Persistent bibasilar consolidations. No pleural effusion. No pneumothorax. Stable cardiomediastinal silhouette. Similar postsurgical changes of the right shoulder. IMPRESSION: Interval removal of left neck central line. Persistent bibasilar consolidations. This document has been electronically signed by: Carter Patel MD on 08/05/2025 04:51:00 Critical Care Time Critical Care Time Critical Care Time: Yes Total Critical Care Time: 60 Attestation: Patient required immediate attention upon arrival to the ED, he was transitioned to BiPAP and then subsequently high flow. You met sepsis criteria in his treated with broad-spectrum antibiotics and IV fluids. He ultimately required admission to ICU Discharge Plan Discharge Clinical Impression: Acute hypoxic respiratory failure Patient Disposition: Admitted As Inpatient
[2025-08-05 04:21] LABS: Hematocrit 38.0 % (42.0-52.0); Hemoglobin 12.5 g/dl (14.0-18.0); Imm Gran Abs Auto 0.20 X10*3/uL (0.00-0.03); Imm Gran Pct Auto 0.8 % (0.0-0.4); Lymphocytes Absolute Auto 1.1 X10*3/uL (1.2-4.9); Mean Corpuscular HGB Conc 32.9 g/dl (31.0-36.0); Mean Corpuscular Hemoglobin 31.6 pg (27.0-33.0); Mean Corpuscular Volume 96.0 fL (80.0-98.0); NRBC Abs Auto 0.000 X10*3/uL (0.0-0.012); NRBC Pct Auto 0.0 /100WBC (0.0-0.2); Platelet Count 301 X10*3/uL (160-400); Red Blood Count 3.96 X10*6/uL (4.60-5.80); SCAN SMEAR FLAG 1; White Blood Count 26.6 X10*3/uL (4.8-10.8)
[2025-08-05 04:21] LABS: Venous Blood Gas Refer to POC result
[2025-08-05 04:22] LABS: MANUAL DIFF FLAG SCAN
[2025-08-05 04:26] LABS: VBG HCO3 31 mmol/L (22-26); VBG O2 % Saturation 50.0 %
[2025-08-05 05:37] LABS: NT Pro B Type Natriuretic Pept 338.0 pg/mL (<300); Troponin-I High Sensitivity 17.4 ng/L (<3.5-35.0)
[2025-08-05 05:42] LABS: Alanine Aminotransferase 7 U/L (0-40); Albumin Level 3.5 g/dL (3.5-5.0); Alkaline Phosphatase 111 U/L (39-117); Anion Gap 17 (12-20); Aspartate Amino Transferase 18 U/L (5-37); Blood Urea Nitrogen 37 mg/dL (9-16); Calcium 9.0 mg/dL (8.4-10.2); Carbon Dioxide 28 mmol/L (22-29); Chloride 107 mmol/L (96-108); Creatinine Clr Calc Pharmacy 72.1; Estimated Glomerular Filt Rate > 60; Potassium 4.9 mmol/L (3.3-5.1); Sodium 147 mmol/L (135-145); Total Protein 6.5 g/dL (6.5-8.0)
[2025-08-05 05:54] LABS: Resp Syncy Virus RNA Qual PCR NEGATIVE (Negative); SARS COV2 PCR INHOUSE NEGATIVE (Negative)
[2025-08-05 06:22] LABS: Reflex Lactate? Lactic Acid Added
[2025-08-05 07:32] LABS: ~Lactic Acid-LAB USE ONLY 3.7 mmol/L (0.5-2.0)
[2025-08-05] MEDS: LACTATED RINGERS 2217 ML IV (07:37)
--- OUTSIDE RECORDS SUMMARY | 2025-08-05 07:49 | XMS_ITS | Encounter Summary ---
Author Organization [facility] Address [address] [place] [address] Care Team Providers Care Moveman Name Role Phone Malcolm Edmondson Primary Care Provider [phone] System, Provider Not In Primary Care Provider Un available Kalyan, Johanna Alonos Primary Care Provider Unavai lable Kalyan, Johanna Alonso Primary Care Provider Unavai lable Unknown, Provider Primary Care Provider Unava ilable None, Pcp Primary Care Provider Unavailabl e Kalyan, Johanna Allen MD Primary Care Provider [phone] None, Pcp Primary Care Provider Unavailabl e Skye De Leon MD Primary Care Provider [phone] Klio Valera Jr. Primary Care Provid er Skye De Leon MD Primary Care Provider [phone] Encounter Details Date Type Department Care Team (Late st Contact Info) Description 06/09/2015 Orders Only [facility] - [address] [place] [id number] Param Rhodes MD [address] [place] [address] Schizoaffective disorder, unspecified condition (Primary Dx) Social [...] - 1.3 mg/dL 04/05/2016 7:29 PM EDT [facility] GFR Historical (MDRD) 54(L) >=60 mL/min/BSA 04/05/2016 7:29 PM EDT [facility] Estimated GFR (MDRD) 45(L) >=60 mL/min/BSA 04/05/2016 7:29 PM T [facility] GFR Estimate Comment 04/05/2016 7:29 PM [facility] Comment: Chronic Kidney Disease(CKD) [...] ORDERABLES Final Re sult Performing Organization Address [facility] Co de Phone Number [address] [address] * Hepatic Function Panel (04/05/2016 5:48 PM EDT) Total Protein 6.4 6.2 - 8.2 g/dL 04/05/2016 7:29 PM EDT [facility] Albumin, Blood 3.6 3.4 - 4.9 g/dL 04/05/2016 7:29 PM EDT [facility] Total Bilirubin 0.4 0.2 - 1.3 mg/dL 04/05/2016 7:29 PM EDT [facility] Direct Bilirubin 0.1 0.1 - 0.5 mg/dL 04/05/2016 7:29 PM EDT [facility] Alkaline Phosphatase 91 30 - 115 IU/L 04/05/2016 7:29 PM EDT [facility] AST (SGOT) 14 11 - 40 IU/L 04/05/2016 7:29 PM EDT [facility] ALT (SGPT) 19 7 - 40 IU/L 04/05/2016 7:29 PM EDT [facility] Blood specimen (specimen) Venipuncture / Unknown 04/05/2016 5:48 PM EDT 04/05/2016 6:12 PM EDT Param Rhodes MD LAB BLOOD ORDERABLES Final Re sult Performing Organization Address [facility]/ZIP Co de Phone Number [address] [address] * Valproic Acid Level (04/05/2016 5:48 PM EDT) Valproic Acid Level, Blood 59 50 - 100 ug/mL 04/05/2016 6:57 PM EDT [facility] Blood specimen (specimen) Venipuncture / Unknown 04/05/2016 5:48 PM EDT 04/05/2016 6:10 PM EDT Param Rhodes MD LAB BLOOD ORDERABLES Final Re sult Performing Organization Address [facility] de Phone Number [address] [address] * (ABNORMAL) Creatinine with GFRE (03/10/2016 9:04 AM EDT) Creatinine, Blood 1.6(H) 0.6 - 1.3 mg/dL 03/10/2016 10:03 AM EDT [facility] GFR Historical (MDRD) 54(L) >=60 mL/min/BSA 03/10/2016 10:03 AM EDT [facility] Estimated GFR (MDRD) 45(L) >=60 mL/min/BSA 03/10/2016 10:03 AM T [facility] GFR Estimate Comment 03/10/2016 10:03 AM T [facility] Comment: Chronic Kidney Disease(CKD) Stages based [...] ORDERABLES Final Re sult Performing Organization Address [facility] Co de Phone Number [address] [address] * Hepatic Function Panel (03/10/2016 9:04 AM EDT) Total Protein 6.6 6.2 - 8.2 g/dL 03/10/2016 10:03 AM EDT [facility] Albumin, Blood 3.7 3.4 - 4.9 g/dL 03/10/2016 10:03 AM EDT [facility] Total Bilirubin 0.4 0.2 - 1.3 mg/dL 03/10/2016 10:03 AM EDT [facility] Direct Bilirubin 0.1 0.1 - 0.5 mg/dL 03/10/2016 10:03 AM EDT [facility] Alkaline Phosphatase 103 30 - 115 IU/L 03/10/2016 10:03 AM EDT [facility] AST (SGOT) 15 11 - 40 IU/L 03/10/2016 10:03 AM EDT [facility] ALT (SGPT) 20 7 - 40 IU/L 03/10/2016 10:03 AM EDT [facility] Blood specimen (specimen) Venipuncture / Unknown 03/10/2016 9:04 AM EDT 03/10/2016 9:27 AM EDT Param Rhodes MD LAB BLOOD ORDERABLES Final Re sult Performing Organization Address [facility]/ZIP Co de Phone Number [address] [address] * Valproic Acid Level (03/10/2016 9:04 AM EDT) Valproic Acid Level, Blood 72 50 - 100 ug/mL 03/10/2016 9:53 AM EDT [facility] Blood specimen (specimen) Venipuncture / Unknown 03/10/2016 9:04 AM EDT 03/10/2016 9:27 AM EDT Param Rhodes MD LAB BLOOD ORDERABLES Final Re sult Performing Organization Address City/[facility]/ZIP Co de Phone Number [address] [address] * (ABNORMAL) Creatinine with GFRE (02/17/2016 5:36 PM EDT) Creatinine, Blood 1.6(H) 0.6 - 1.3 mg/dL 02/17/2016 8:24 PM EDT [facility] GFR Historical (MDRD) 54(L) >=60 mL/min/BSA 02/17/2016 8:24 PM EDT [facility] Estimated GFR (MDRD) 45(L) >=60 mL/min/BSA 02/17/2016 8:24 PM EDT [facility] GFR Estimate Comment 02/17/2016 8:24 PM EDT [facility] Comment: Chronic Kidney Disease(CKD) Stages based on estimated GFR: GFR ml/min/1.73m^2 Stage of CKD 30-59 3 15-29 4 <15(or dialysis) 5 The GFR estimate is not accurate for: a) Acute renal failure. b) Dosage calculations for Pharmacy drugs. Blood specimen (specimen) Venipuncture / Unknown 02/17/2016 5:36 PM EDT 02/17/2016 5:54 PM EDT us Param Rhodes MD LAB BLOOD ORDERABLES Final Re sult [address] [address] * (ABNORMAL) Hepatic Function Panel (02/17/2016 5:36 PM EDT) Total Protein 6.7 6.2 - 8.2 g/dL 02/17/2016 8:24 PM EDT [facility] Albumin, Blood 3.5 3.4 - 4.9 g/dL 02/17/2016 8:24 PM EDT [facility] Total Bilirubin 0.3 0.2 - 1.3 mg/dL 02/17/2016 8:24 PM EDT [facility] Direct Bilirubin <0.1(L) 0.1 - 0.5 mg/dL 02/17/2016 8:24 PM EDT [facility] Alkaline Phosphatase 95 30 - 115 IU/L 02/17/2016 8:24 PM EDT [facility] AST (SGOT) 15 11 - 40 IU/L 02/17/2016 8:24 PM EDT [facility] ALT (SGPT) 19 7 - 40 IU/L 02/17/2016 8:24 PM EDT [facility] Blood specimen (specimen) Venipuncture / Unknown 02/17/2016 5:36 PM EDT 02/17/2016 5:54 PM EDT Param Rhodes MD LAB BLOOD ORDERABLES Final Re sult Performing Organization Address [facility]/ZIP Co de Phone Number [address] [address] * Valproic Acid Level (02/17/2016 5:36 PM EDT) Valproic Acid Level, Blood 56 50 - 100 ug/mL 02/17/2016 7:51 PM EDT [facility] Blood specimen (specimen) Venipuncture / Unknown 02/17/2016 5:36 PM EDT 02/17/2016 5:54 PM EDT Param Rhodes MD LAB BLOOD ORDERABLES Final Re sult Performing Organization Address [facility] de Phone Number [address] [address] * (ABNORMAL) Creatinine with GFRE (01/19/2016 5:37 PM EDT) Creatinine, Blood 1.5(H) 0.6 - 1.3 mg/dL 01/19/2016 7:39 PM EDT [facility] GFR Historical (MDRD) 58(L) >=60 mL/min/BSA 01/19/2016 7:39 PM EDT [facility] Estimated GFR (MDRD) 48(L) >=60 mL/min/BSA 01/19/2016 7:39 PM EDT [facility] GFR Estimate Comment 01/19/2016 7:39 PM T [facility] Comment: Chronic Kidney Disease(CKD) Stages based [...] ORDERABLES Final Re sult Performing Organization Address [facility] de Phone Number [address] [address] * Hepatic Function Panel (01/19/2016 5:37 PM EDT) Total Protein 6.7 6.2 - 8.2 g/dL 01/19/2016 7:39 PM EDT [facility] Albumin, Blood 3.7 3.4 - 4.9 g/dL 01/19/2016 7:39 PM EDT [facility] Total Bilirubin 0.4 0.2 - 1.3 mg/dL 01/19/2016 7:39 PM EDT [facility] Direct Bilirubin 0.1 0.1 - 0.5 mg/dL 01/19/2016 7:39 PM EDT [facility] Alkaline Phosphatase 90 30 - 115 IU/L 01/19/2016 7:39 PM EDT [facility] AST (SGOT) 17 11 - 40 IU/L 01/19/2016 7:39 PM EDT [facility] ALT (SGPT) 22 7 - 40 IU/L 01/19/2016 7:39 PM EDT [facility] Blood specimen (specimen) Venipuncture / Unknown 01/19/2016 5:37 PM EDT 01/19/2016 6:07 PM EDT Param Rhodes MD LAB BLOOD ORDERABLES Final Re sult Performing Organization Address [facility] Co de Phone Number [address] [address] * Valproic Acid Level (01/19/2016 5:37 PM EDT) Valproic Acid Level, Blood 54 50 - 100 ug/mL 01/19/2016 7:29 PM EDT [facility] Blood specimen (specimen) Venipuncture / Unknown 01/19/2016 5:37 PM EDT 01/19/2016 6:07 PM EDT Param Rhodes MD LAB BLOOD ORDERABLES Final Re sult Performing Organization Address [facility] [place] [address] * (ABNORMAL) Creatinine with GFRE (12/22/2015 5:40 PM EST) Creatinine, Blood 1.6(H) 0.6 - 1.3 mg/dL 12/22/2015 7:42 PM EST [facility] GFR Historical (MDRD) 54(L) >=60 mL/min/BSA 12/22/2015 7:42 PM EST [facility] Estimated GFR (MDRD) 45(L) >=60 mL/min/BSA 12/22/2015 7:42 PM EST [facility] Blood specimen (specimen) Venipuncture / Unknown 12/22/2015 5:40 PM EST 12/22/2015 6:01 PM EST [facility] - 12/22/2015 7:42 PM EST Chronic Kidney Disease(CKD) Stages based on estimated GFR: GFR ml/min/1.73m^2 Stage of CKD 30-59 3 15-29 4 <15(or dialysis) 5 The GFR estimate is not accurate for: a) Acute renal failure. b) Dosage calculations for Pharmacy drugs. Param Rhodes MD LAB BLOOD ORDERABLES Final Re sult Performing Organization Address [facility] Co de Phone Number [address] [address] * Hepatic Function Panel (12/22/2015 5:40 PM EST) Total Protein 6.6 6.2 - 8.2 g/dL 12/22/2015 7:42 PM [facility] Albumin, Blood 3.7 3.4 - 4.9 g/dL 12/22/2015 7:42 PM [facility] Total Bilirubin 0.4 0.2 - 1.3 mg/dL 12/22/2015 7:42 PM [facility] Direct Bilirubin 0.2 0.1 - 0.5 mg/dL 12/22/2015 7:42 PM [facility] Alkaline Phosphatase 88 30 - 115 IU/L 12/22/2015 7:42 PM [facility] AST (SGOT) 19 11 - 40 IU/L 12/22/2015 7:42 PM [facility] ALT (SGPT) 26 7 - 40 IU/L 12/22/2015 7:42 PM [facility] Blood specimen (specimen) Venipuncture / Unknown 12/22/2015 5:40 PM EST 12/22/2015 6:01 PM EST Param Rhodes MD LAB BLOOD ORDERABLES Final Re sult Performing Organization Address [facility]/ZIP Co de Phone Number [address] [address] * Valproic Acid Level (12/22/2015 5:40 PM EST) Valproic Acid Level, Blood 53 50 - 100 ug/mL 12/22/2015 7:12 PM [facility] Blood specimen (specimen) Venipuncture / Unknown 12/22/2015 5:40 PM EST 12/22/2015 6:01 PM EST Param Rhodes MD LAB BLOOD ORDERABLES Final Re sult Performing Organization Address [facility] Co de Phone Number [address] [address] * (ABNORMAL) Creatinine with GFRE (11/17/2015 5:39 PM EST) Creatinine, Blood 1.6(H) 0.6 - 1.3 mg/dL 11/17/2015 7:30 PM [facility] GFR Historical (MDRD) 54(L) >=60 mL/min/BSA 11/17/2015 7:30 PM [facility] Estimated GFR (MDRD) 45(L) >=60 mL/min/BSA 11/17/2015 7:30 PM [facility] Blood specimen (specimen) Venipuncture / Unknown 11/17/2015 5:39 PM EST 11/17/2015 6:17 PM EST Narrative [facility] - 11/17/2015 7:30 PM EST Chronic Kidney Disease(CKD) Stages based on estimated GFR: GFR ml/min/1.73m^2 Stage of CKD 30-59 3 15-29 4 <15(or dialysis) 5 The GFR estimate is not accurate for: a) Acute renal failure. b) Dosage calculations for Pharmacy drugs. Param Rhodes MD LAB BLOOD ORDERABLES Final Re sult Performing Organization Address [facility] Co de Phone Number [address] [address] * Hepatic Function Panel (11/17/2015 5:39 PM EST) Pathologist [facility] Total Protein 6.6 6.2 - 8.2 g/dL 11/17/2015 7:30 PM EST [facility] Albumin, Blood 3.7 3.4 - 4.9 g/dL 11/17/2015 7:30 PM [facility] Total Bilirubin 0.2 0.2 - 1.3 mg/dL 11/17/2015 7:30 PM [facility] Direct Bilirubin 0.1 0.1 - 0.5 mg/dL 11/17/2015 7:30 PM [facility] Alkaline Phosphatase 92 30 - 115 IU/L 11/17/2015 7:30 PM [facility] AST (SGOT) 16 11 - 40 IU/L 11/17/2015 7:30 PM [facility] ALT (SGPT) 19 7 - 40 IU/L 11/17/2015 7:30 PM [facility] Blood specimen (specimen) Venipuncture / Unknown 11/17/2015 5:39 PM EST 11/17/2015 6:17 PM EST Param Rhodes MD LAB BLOOD ORDERABLES Final Re sult Performing Organization Address [facility]/ZIP Co de Phone Number [address] [address] * Valproic Acid Level (11/17/2015 5:39 PM EST) Valproic Acid Level, Blood 66 50 - 100 ug/mL 11/17/2015 7:31 PM EST [facility] Blood specimen (specimen) Venipuncture / Unknown 11/17/2015 5:39 PM EST 11/17/2015 6:17 PM EST Param Rhodes MD LAB BLOOD ORDERABLES Final Re sult Performing Organization Address [facility] de Phone Number [address] [address] * (ABNORMAL) Creatinine with GFRE (10/07/2015 5:47 PM EST) Creatinine, Blood 1.5(H) 0.6 - 1.3 mg/dL 10/07/2015 7:22 PM EST [facility] GFR Historical (MDRD) 58(L) >=60 mL/min/BSA 10/07/2015 7:22 PM EST [facility] Estimated GFR (MDRD) 48(L) >=60 mL/min/BSA 10/07/2015 7:22 PM EST [facility] Blood specimen (specimen) Venipuncture / Unknown 10/07/2015 5:47 PM EST 10/07/2015 6:14 PM EST Narrative [facility] - 10/07/2015 7:22 PM EST Chronic Kidney Disease(CKD) Stages based on estimated GFR: GFR ml/min/1.73m^2 Stage of CKD 30-59 3 15-29 4 <15(or dialysis) 5 The GFR estimate is not accurate for: a) Acute renal failure. b) Dosage calculations for Pharmacy drugs. Param Rhodes MD LAB BLOOD ORDERABLES Final Re sult Performing Organization Address [facility] de Phone Number [address] [address] * Hepatic Function Panel (10/07/2015 5:47 PM EST) Pathologist [facility] Total Protein 6.8 6.2 - 8.2 g/dL 10/07/2015 7:22 PM EST [facility] Albumin, Blood 3.8 3.4 - 4.9 g/dL 10/07/2015 7:22 PM [facility] Total Bilirubin 0.4 0.2 - 1.3 mg/dL 10/07/2015 7:22 PM [facility] Direct Bilirubin 0.1 0.1 - 0.5 mg/dL 10/07/2015 7:22 PM [facility] Alkaline Phosphatase 108 30 - 115 IU/L 10/07/2015 7:22 PM [facility] AST (SGOT) 15 11 - 40 IU/L 10/07/2015 7:22 PM [facility] ALT (SGPT) 35 7 - 40 IU/L 10/07/2015 7:22 PM [facility] Blood specimen (specimen) Venipuncture / Unknown 10/07/2015 5:47 PM EST 10/07/2015 6:14 PM EST Param Rhodes MD LAB BLOOD ORDERABLES Final Re sult Performing Organization Address City/[facility]/ZIP Co de Phone Number [address] [address] * Valproic Acid Level (10/07/2015 5:47 PM EST) [facility] Valproic Acid Level, Blood 69 50 - 100 ug/mL 10/07/2015 7:03 PM EST [facility] Blood specimen (specimen) Venipuncture / Unknown 10/07/2015 5:47 PM EST 10/07/2015 6:13 PM EST Param Rhodes MD LAB BLOOD ORDERABLES Final Re sult Performing Organization Address City/[facility]/ZIP Co de Phone Number [address] [address] * (ABNORMAL) Creatinine with GFRE (09/06/2015 5:41 PM EST) [facility] Creatinine, Blood 1.5(H) 0.6 - 1.3 mg/dL 09/06/2015 8:43 PM [facility] GFR Historical (MDRD) 58(L) >=60 mL/min/BSA 09/06/2015 8:43 PM [facility] Estimated GFR (MDRD) 48(L) >=60 mL/min/BSA 09/06/2015 8:43 PM [facility] Blood specimen (specimen) Venipuncture / Unknown 09/06/2015 5:41 PM EST 09/06/2015 7:48 PM EST [facility] - 09/06/2015 8:43 PM EST Chronic Kidney Disease(CKD) Stages based on estimated GFR: GFR ml/min/1.73m^2 Stage of CKD 30-59 3 15-29 4 <15(or dialysis) 5 The GFR estimate is not accurate for: a) Acute renal failure. b) Dosage calculations for Pharmacy drugs. Param Rhodes MD LAB BLOOD ORDERABLES Final Re sult [place] [phone] * Hepatic Function Panel (09/06/2015 5:41 PM EST) Total Protein 6.6 6.2 - 8.2 g/dL 09/06/2015 8:43 PM [facility] Albumin, Blood 3.6 3.4 - 4.9 g/dL 09/06/2015 8:43 PM [facility] Total Bilirubin 0.4 0.2 - 1.3 mg/dL 09/06/2015 8:43 PM [facility] Direct Bilirubin 0.1 0.1 - 0.5 mg/dL 09/06/2015 8:43 PM [facility] Alkaline Phosphatase 90 30 - 115 IU/L 09/06/2015 8:43 PM [facility] AST (SGOT) 16 11 - 40 IU/L 09/06/2015 8:43 PM [facility] ALT (SGPT) 21 7 - 40 IU/L 09/06/2015 8:43 PM [facility] Blood specimen (specimen) Venipuncture / Unknown 09/06/2015 5:41 PM EST 09/06/2015 7:48 PM EST Param Rhodes MD LAB BLOOD ORDERABLES Final Re sult Performing Organization Address City/[facility]/ZIP Co de Phone Number [address] [address] * Valproic Acid Level (09/06/2015 5:41 PM EST) Valproic Acid Level, Blood 68 50 - 100 ug/mL 09/06/2015 8:24 PM EST [facility] Blood specimen (specimen) Venipuncture / Unknown 09/06/2015 5:41 PM EST 09/06/2015 7:48 PM EST Param Rhodes MD LAB BLOOD ORDERABLES Final Re sult Performing Organization Address [facility] de Phone Number [address] [address] * (ABNORMAL) Creatinine with GFRE (08/04/2015 5:35 PM EDT) Creatinine, Blood 1.7(H) 0.6 - 1.3 mg/dL 08/04/2015 6:30 PM EDT [facility] GFR Historical (MDRD) 50(L) >=60 mL/min/BSA 08/04/2015 6:30 PM EDT [facility] Estimated GFR (MDRD) 42(L) >=60 mL/min/BSA 08/04/2015 6:30 PM EDT [facility] Blood specimen (specimen) Venipuncture / Unknown 08/04/2015 5:35 PM EDT 08/04/2015 6:17 PM EDT [facility] - 08/04/2015 6:30 PM EDT Chronic Kidney Disease(CKD) Stages based on estimated GFR: GFR ml/min/1.73m^2 Stage of CKD 30-59 3 15-29 4 <15(or dialysis) 5 The GFR estimate is not accurate for: a) Acute renal failure. b) Dosage calculations for Pharmacy drugs. Param Rhodes MD LAB BLOOD ORDERABLES Final Re sult Performing Organization Address [facility] de Phone Number [address] [address] * Hepatic Function Panel (08/04/2015 5:35 PM EDT) Total Protein 6.9 6.2 - 8.2 g/dL 08/04/2015 6:30 PM EDT [facility] Albumin, Blood 3.9 3.4 - 4.9 g/dL 08/04/2015 6:30 PM EDT [facility] Total Bilirubin 0.5 0.2 - 1.3 mg/dL 08/04/2015 6:30 PM EDT [facility] Direct Bilirubin <0.1 <0.3 mg/dL 08/04/2015 6:30 PM EDT [facility] Alkaline Phosphatase 89 30 - 115 IU/L 08/04/2015 6:30 PM EDT [facility] AST (SGOT) 18 11 - 40 IU/L 08/04/2015 6:30 PM EDT [facility] ALT (SGPT) 23 7 - 40 IU/L 08/04/2015 6:30 PM EDT [facility] Blood specimen (specimen) Venipuncture / Unknown 08/04/2015 5:35 PM EDT 08/04/2015 6:17 PM EDT Param Rhodes MD LAB BLOOD ORDERABLES Final Re sult Performing Organization Address [facility] Co de Phone Number [address] [address] * Valproic Acid Level (08/04/2015 5:35 PM EDT) Valproic Acid Level, Blood 52 50 - 100 ug/mL 08/04/2015 6:44 PM EDT [facility] Blood specimen (specimen) Venipuncture / Unknown 08/04/2015 5:35 PM EDT 08/04/2015 6:17 PM EDT Param Rhodes MD LAB BLOOD ORDERABLES Final Re sult Performing Organization Address [facility] de Phone Number [address] [address] * (ABNORMAL) Creatinine with GFRE (07/07/2015 5:46 PM EDT) Creatinine, Blood 1.7(H) 0.6 - 1.3 mg/dL 07/07/2015 6:09 PM EDT [facility] GFR Historical (MDRD) 50(L) >=60 mL/min/BSA 07/07/2015 6:09 PM EDT [facility] Estimated GFR (MDRD) 42(L) >=60 mL/min/BSA 07/07/2015 6:09 PM EDT [facility] Blood specimen (specimen) Venipuncture / Unknown 07/07/2015 5:46 PM EDT 07/07/2015 5:47 PM EDT Narrative [facility] - 07/07/2015 6:09 PM EDT Chronic Kidney Disease(CKD) Stages based on estimated GFR: GFR ml/min/1.73m^2 Stage of CKD 30-59 3 15-29 4 <15(or dialysis) 5 The GFR estimate is not accurate for: a) Acute renal failure. b) Dosage calculations for Pharmacy drugs. Param Rhodes MD LAB BLOOD ORDERABLES Final Re sult Performing Organization Address [facility] Co de Phone Number [address] [address] * Hepatic Function Panel (07/07/2015 5:46 PM EDT) Total Protein 7.1 6.2 - 8.2 g/dL 07/07/2015 6:09 PM EDT [facility] Albumin, Blood 4.0 3.4 - 4.9 g/dL 07/07/2015 6:09 PM EDT [facility] Total Bilirubin 0.5 0.2 - 1.3 mg/dL 07/07/2015 6:09 PM EDT [facility] Direct Bilirubin 0.1 <0.3 mg/dL 07/07/2015 6:09 PM EDT [facility] Alkaline Phosphatase 89 30 - 115 IU/L 07/07/2015 6:09 PM EDT [facility] AST (SGOT) 18 11 - 40 IU/L 07/07/2015 6:09 PM EDT [facility] ALT (SGPT) 25 7 - 40 IU/L 07/07/2015 6:09 PM EDT [facility] Blood specimen (specimen) Venipuncture / Unknown 07/07/2015 5:46 PM EDT 07/07/2015 5:47 PM EDT Param Rhodes MD LAB BLOOD ORDERABLES Final Re sult Performing Organization Address [facility] Co de Phone Number [address] [address] * Valproic Acid Level (07/07/2015 5:46 PM EDT) Valproic Acid Level, Blood 61 50 - 100 ug/mL 07/07/2015 6:09 PM EDT [facility] Blood specimen (specimen) Venipuncture / Unknown 07/07/2015 5:46 PM EDT 07/07/2015 5:47 PM EDT Param Rhodes MD LAB BLOOD ORDERABLES Final Re sult Performing Organization Address City/[facility]/ZIP Co de Phone Number [address] [address] * CBC and Differential (06/09/2015 5:37 PM EDT) WBC 9.46 4.40 - 11.30 K/uL 06/09/2015 7:30 PM EDT [facility] RBC 5.12 4.5 - 5.9 M/uL 06/09/2015 7:30 PM EDT [facility] Hemoglobin 16.5 13.8 - 17.4 g/dL 06/09/2015 7:30 PM EDT [facility] Hematocrit 48.5 41.0 - 51.0 % 06/09/2015 7:30 [facility] MCV 95 80 - 96 fL 06/09/2015 7:30 PM EDT [facility] Platelet Count 218 150 - 450 K/uL 06/09/2015 7:30 PM EDT [facility] RDW 13.6 11.6 - 14.6 % 06/09/2015 7:30 PM EDT [facility] Neutrophil 65 % 06/09/2015 7:30 PM EDT [facility] Lymphocyte 26 % 06/09/2015 7:30 PM EDT [facility] Monocyte 8 % 06/09/2015 7:30 PM EDT [facility] Eosinophil 0 % 06/09/2015 7:30 PM EDT [facility] Basophil 0 % 06/09/2015 7:30 PM EDT [facility] Absolute Neutrophil Count 6.17 1.40 - 6.60 K/uL 06/09/2015 7:30 PM EDT [facility] Absolute Lymphocyte Count 2.45 1.20 - 3.50 K/uL 06/09/2015 7:30 PM EDT [facility] Absolute Monocyte Count 0.80 0.00 - 1.00 K/uL 06/09/2015 7:30 [facility] Absolute Eosinophil Count 0.00 0.00 - 0.40 K/uL 06/[facility]2015 [facility] Basophil Count 0.04 0.00 - 0.20 K/uL 06/09/2015 7:30 PM EDT [facility] MPV 06/09/2015 7:30 [facility] Blood specimen (specimen) Venipuncture / Unknown 06/09/2015 5:37 PM EDT 06/09/2015 5:53 PM EDT us Param Rhodes MD LAB BLOOD ORDERABLES Final Re sult [address] [address] * (ABNORMAL) Creatinine with GFRE (06/09/2015 5:37 PM EDT) Creatinine, Blood 1.7(H) 0.6 - 1.3 mg/dL 06/09/2015 7:45 PM EDT [facility] GFR Historical (MDRD) 50(L) >=60 mL/min/BSA 06/09/2015 7:45 PM EDT [facility] Estimated GFR (MDRD) 42(L) >=60 mL/min/BSA 06/09/2015 7:45 PM EDT [facility] Blood specimen (specimen) Venipuncture / Unknown 06/09/2015 5:37 PM EDT 06/09/2015 5:53 PM EDT [facility] LABORATORY - 06/09/2015 7:45 PM EDT Chronic Kidney Disease(CKD) Stages based on estimated GFR: GFR ml/min/1.73m^2 Stage of CKD 30-59 3 15-29 4 <15(or dialysis) 5 The GFR estimate is not accurate for: a) Acute renal failure. b) Dosage calculations for Pharmacy drugs. Param Rhodes MD LAB BLOOD ORDERABLES Final Re sult [place] [phone] * Hepatic Function Panel (06/09/2015 5:37 PM EDT) Total Protein 7.1 6.2 - 8.2 g/dL 06/09/2015 7:45 PM EDT [facility] Albumin, Blood 3.8 3.4 - 4.9 g/dL 06/09/2015 7:45 PM EDT [facility] Total Bilirubin 0.5 0.2 - 1.3 mg/dL 06/09/2015 7:45 PM EDT [facility] Direct Bilirubin 0.2 0.1 - 0.5 mg/dL 06/09/2015 7:45 PM T [facility] Alkaline Phosphatase 94 30 - 115 IU/L 06/09/2015 7:45 PM T [facility] AST (SGOT) 16 11 - 40 IU/L 06/09/2015 7:45 PM EDT [facility] ALT (SGPT) 21 7 - 40 IU/L 06/09/2015 7:45 PM EDT [facility] Blood specimen (specimen) Venipuncture / Unknown 06/09/2015 5:37 PM EDT 06/09/2015 5:53 PM EDT Param Rhodes MD LAB BLOOD ORDERABLES Final Re sult Performing Organization Address [facility] Co de Phone Number [address] [address] * Valproic Acid Level (06/09/2015 5:37 PM EDT) Valproic Acid Level, Blood 60 50 - 100 ug/mL 06/09/2015 6:37 PM EDT [facility] Blood specimen (specimen) Venipuncture / Unknown 06/09/2015 5:37 PM EDT 06/09/2015 5:53 PM EDT Param Rhodes MD LAB BLOOD ORDERABLES Final Re sult Performing Organization Address [facility] Co de Phone Number [address] [address] documented in this encounter Visit Diagnoses Diagnosis [...] documented as of this encounter Care Teams Moveman Relationship Specialty Start Date End Date Malcolm Edmondson PCP - General 08/31/14 12/31/19 System, Provider Not In PCP - General 01/01/20 04/13/20 Johanna Biggs [address] [place] [address] [address] [place] [address] PCP - General 04/14/20 10/27/20 Johanna Biggs [address] [place] [address] [address] [place] [address] PCP - General 10/28/20 01/03/21 Unknown, Provider, [address] [place] [address] PCP - General 01/04/21 03/10/21 None, Pcp, [address] [place] [address] PCP - General 03/11/21 11/22/21 Johanna Biggs MD [address] [place] [address] PCP - General Family Practice 11/23/21 05/29/22 None, PcpMD [address] [place] [address] PCP - General 05/30/22 05/31/22 Skye De Leon MD [address] [place] [phone] PCP - General Internal Medicine 06/01/22 11/08/22 Kilo Valera Jr. [address] [place] [address] PCP - General 11/09/22 12/17/22 Skye De Leon MD [address] [place] [address] PCP - General Internal Medicine 12/18/22 documented as of this encounter
--- OUTSIDE RECORDS SUMMARY | 2025-08-05 07:49 | XMS_ITS | Encounter Summary ---
Author Organization [facility] Address [address] [place] [address] Care Team Providers Care Java Engineer Name Role Phone Malcolm Edmondson Primary Care Provider [phone] System, Provider Not In Primary Care Provider Un available Kalyan, Johanna Alonso Primary Care Provider Unavai lable Kalyan, Johanna Alonso Primary Care Provider Unavai lable Unknown, Provider Primary Care Provider Unava ilable None, Pcp Primary Care Provider Unavailabl e Kalyan, Johanna Allen MD Primary Care Provider [phone] None, Pcp Primary Care Provider Unavailabl e Skye De Leon MD Primary Care Provider [phone] Kilo Valera Jr. Primary Care Provid er Skye De Leon MD Primary Care Provider [phone] Encounter Details Date Type Department Care Team (Late st Contact Info) Description 03/31/2015 Orders Only [facility] - [address] [place] [id number] Param Rhodes MD [address] [place] [address] Schizoaffective disorder, unspecified condition (Primary Dx) Social [...] documented as of this encounter Care Teams Java Engineer Relationship Specialty Start Date End Date Malcolm Edmondson PCP - General 08/31/14 12/31/19 System, Provider Not In PCP - General 01/01/20 04/13/20 Johanna Biggs [address] [place] [address] [place] [address] PCP - General 04/14/20 10/27/20 Johanna Big[place] [address] PCP - General 10/28/20 01/03/21 Unknown, Provider, [address] [place] [address] PCP - General 01/04/21 03/10/21 None, Pcp, [address] [place] [address] PCP - General 03/11/21 11/22/21 Johanna Biggs MD [address] [place] [address] PCP - General Family Practice 11/23/21 05/29/22 Lisa, MD Rere [address] [place] [address] PCP - General 05/30/22 05/31/22 Skye De Leon MD [address] [place] [address] PCP - General Internal Medicine 06/01/22 11/08/22 Kilo Valera Jr. [address] [place] [address] PCP - General 11/09/22 12/17/22 Skye De Leon MD [address] [place] [address] PCP - General Internal Medicine 12/18/22 documented as of this encounter
--- OUTSIDE RECORDS SUMMARY | 2025-08-05 07:49 | XMS_ITS | Encounter Summary ---
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 on file Not [...] ORDERABLE S Final Result Performing Organization Address [facility] Co de Phone Number [facility] [address] [place] [address], [place] [phone] * Strep Pneumoniae Urine Antigen (12/23/2022 7:46 [...] ORDERABLE S Final Result Performing Organization Address [facility] Co de Phone Number [facility] [address] [place] [address], [place] [phone] * Culture, Blood (12/23/2022 4:16 AM EST) Culture No growth after 5 days STEPHEN 12/28/2022 11:01 AM EST [facility] Blood PERIPHERAL NERVOUS SYSTEM STRUCTURE / Unknown 12/23/2022 4:16 AM EST 12/23/2022 10:14 AM EST us Mike Ewing MD MICROBIOLOGY - GENERAL ORDERABLE S Final Result Performing Organization Address City/[facility]/ZIP Co de Phone Number [facility] [address] [place] [address], [place] [phone] * Culture, Blood (12/23/2022 4:15 AM EST) Culture No growth after 5 days STEPHEN 12/28/2022 11:01 AM EST [facility] Blood PERIPHERAL NERVOUS SYSTEM STRUCTURE / Unknown 12/23/2022 4:15 AM EST 12/23/2022 10:14 AM EST us Mike Ewing MD MICROBIOLOGY - GENERAL ORDERABLE S Final Result Performing Organization Address [facility] Co de Phone Number [facility] [address] [place] [address], [place] [phone] documented in this encounter Visit Diagnoses Not [...] documented as of this encounter Care Teams Beater Out Leveling Machine Relationship Specialty Start Date End Date Skye De Leon MD [address] [place] [address] PCP - General Internal Medicine 12/18/22 documented as of this encounter
--- OUTSIDE RECORDS SUMMARY | 2025-08-05 07:49 | XMS_ITS | Clinical Summary ---
Author Organization [facility] r Address [address] [place] [address] Phone Care Team Providers Care Rpg Developer Name Role Phone Malcolm Edmondson MD Unavailable [...] of 2) 2007 COVID-19 Vaccine ( - 2024-2 6 season) 2025 INFLUENZA VACCINE (#1) 2025 RSV [...] age to complete this topic Care Teams Rpg Developer Relationship Specialty Start Date End Date Malcolm Edmondson MD [address] PCP - Insurance 04/08/15
--- OUTSIDE RECORDS SUMMARY | 2025-08-05 07:49 | XMS_ITS ---
Author Organization [facility] Care Team Providers Care Vulcanizer Rubber Plate Name Role Phone Faith Ferris Unavailable Unavailable Linnette STRATEGY ANALYST, Olaf Stephens Unavailable Unavailable Calli Corado Unavailable Unavailable Allergies and adverse reactions Code CodeSystem Substance Reaction Severity StartDate Concern Status 7052 RXNORM Morphine Unknown 07/22/2025 active Care Team Name Role Address Phone Organization Dates Faith Ferris PCP [address] (Office): : [facility] 07/31/2025 - present Olaf Anglin STRATEGY ANALYST [address] (Office): [facility] 07/31/2025 - [place], [address], [place]Office[place] [facility] 07/31/2025 - present Encounters Encounter Type Code Code System Description Performer Discharge Disposition Service Delivery Location Date Ambulatory Encounter CPT Code = [id number] Schizophrenia [facility] n Address: [address], [place], [address], [facility]. 07/31 Ambulatory Encounter CPT Code = [id number] Mental disorder [facility] n Address: [address] [place] [address], [address] [place] [address]. 07/31 Ambulatory Encounter CPT Code = [id number] Suicidal behavior [facility] n Address: [address] [place] [address], [address] [place] [address]. 07/31 Ambulatory Encounter CPT Code = [id number] Parkinsonism [facility] n Address: [address] [place] [address], [address] [place] [address]. 07/31 Ambulatory Encounter CPT Code = [id number] Dyspnea [facility] n Address: [address] [place] [address], [address] [place] [address]. 07/31 Ambulatory Encounter CPT Code = [id number] Essential hypertension [facility] n Address: [address] [place] [address], [address] [place] [address]. 07/31 Ambulatory Encounter CPT Code = [id number] Chronic kidney disease [facility] n Address: [address] [place] [address], [address] [place] [address]. 07/31 Ambulatory Encounter CPT Code = [id number] Atherosclerosis of coronary artery without angina pectoris [facility] n Address: [address] [place] [address], [address] [place] [address]. 07/31 Ambulatory Encounter CPT Code = [id number] Gout [facility] n Address: [address] [place] [address], [address] [place] [address]. 07/31 Ambulatory Encounter CPT Code = [id number] Benign prostatic hyperplasia [facility] n Address: [address] [place] [address], [address] [place] [address]. 07/31 Ambulatory Encounter CPT Code = [id number] Gastroesophageal reflux disease without esophagitis [facility] n Address: [facility] Jak [place], [place], [address] [place] [address]. 07/31 Ambulatory Encounter CPT Code = [address] Obstructive sleep apnea syndrome [facility] n Address: [facility] Jak [place], [place], [address] [place] [address]. 07/31 Ambulatory Encounter CPT Code = [id number] Dependence on enabling machine or device [facility] n Address: [facility] [place], [address] [place] [address]. 07/31 Ambulatory Encounter CPT Code = [id number] Gastrostomy present [facility] n Address: [facility] [place], [address] [place] [address]. 07/31 Ambulatory Encounter CPT Code = [id number] Acute hypoxemic respiratory failure [facility] n Address: [facility] Jak [place], [place], [address] [place] [address]. 07/31 Ambulatory Encounter CPT Code = [id number] Recurrent pneumonia [facility] n Address: [facility] [place], [address] [place] [address]. 07/31 Ambulatory Encounter CPT Code = [id number] Pneumonitis caused by inhalation of regurgitated food [facility] n Address: [facility] [place], [address] [place] [address]. 07/31 Ambulatory Encounter CPT Code = [id number] Vascular dementia without behavioral disturbance [facility] n Address: [facility] [place], [address] [place] [address]. 07/31 Ambulatory Encounter CPT Code = [id number] Long-term current use of drug therapy [facility] n Address: [address], [place], [address], [facility]. 07/31 Ambulatory Encounter CPT Code = [id number] COVID-19 [facility] n Address: [address], [place], [address], [facility]. 07/31 Ambulatory Encounter CPT Code = [id number] Mild recurrent major depression [facility] Address: [address], [place], [address], [facility]. 07/31 Goals Section Goals Description Status Target Date Carter will be free of aspiration through the re view date. Active 10/29/2025 Carter will be free of falls through the review date. Active 10/29/2025 Carter will maintain adequat e nutritional and hydration status aeb weight stable, no s/sx of malnutrition or dehydration through review date. Active 10/29/2025 Carter will maintain current level of function through the review date. Active 10/29/2025 Carter will maintain or deve lop clean and intact skin by the review date. Active 10/29/2025 Carter will not have an inte rruption in normal activities due to pain through the review date. Active 10/29/2025 Carter will remain free of c omplications related to immobility, including contractures, thrombus formation, skin-breakdown, fall related injury through the next review date. Active Carter will remain free of f urther s/sx, discomfort or complications related to Parkinson's disease through review date. Active 10/29/2025 Carter will remain free of s esperanza effects or complications related to tube feeding through review date. 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 Active 10/29/2025 Carter's Advanced Directives will be honored thr ough next review Active 10/29/2025 Carter's insertion site will be free of s/sx of infection through the review date. Active 10/29/2025 Functional Status Code Name Recorded Time Value Entered By Chair/vnu-jb-gomej transfer 08/05/2025 Dependent tadejare Does the resident use a wheelchair and/or scooter? 08/05/2025 Yes (qualifier value) tadejare Eating 08/04/2025 Dependent skorir Indicate the type of wheelch air or scooter used 08/05/2025 Independent tadejare Lower body dressing 08/05/2025 Partial/moderate assi stance tadejare Lying to sitting on side of bed 08/05/2025 Partial/m oderate assistance tadejare Oral hygiene 08/05/2025 Partial/moderate assistance tadejare Personal hygiene 08/05/2025 Dependent tadejare Putting on/taking off footwear 08/05/2025 Dependent tadejare Roll left and right 08/05/2025 Dependent tadejare Shower/bathe self 08/05/2025 Dependent tadejare Sit to lying 08/05/2025 Dependent tadejare Sit to stand 08/05/2025 Dependent tadejare Toilet transfer 08/05/2025 Dependent tadejare Toileting hygiene 08/05/2025 Dependent tadejare Upper body dressing 08/05/2025 Dependent tadejare Walk 10 feet 08/05/2025 Dependent tadejare Walk 150 feet 08/05/2025 Not assessed tadejare Walk 50 feet 08/05/2025 Not assessed tadejare Wheel 150 feet 08/05/2025 Not assessed tadejare Wheel 50 feet with two turns 08/05/2025 Not assessed tadejare Immunizations Immunization Status Vaccine Details Vaccine Code CodeSystem Date Notes Influenza-High Dose(Fluzone) completed created date: 08/04/2025 administere d date: 07/03/2024 PVC20 completed Pneumococcal conjugate vaccine 20-valent (PCV20), polysaccharide [id number] conjugate, adjuvant, preservative free 216 CVX created date: 08/04/2025 administere d date: 06/20/2022 Comirnaty 3675-0724 Booster completed SARS-COV-2 (COVID-19) vaccine, mRNA, spike protein, LNP, preservative free, brett-sucrose, 30 mcg/0.3 mL dose 309 CVX created date: 08/04/2025 administere d date: 07/03/2024 Medications Section Medication Name Status Code CodeSystem Dose Route Frequency Admin Type Sig Text Start Date End Date Indication Fleet Enema Enema 7-19 GM/118ML active 13788 5 RXNORM 1 dose Rectal as needed PRN Inser t 1 dose recta lly as neede d for Const ipati on (Step 3) as neede d if no bowel movem ent for 8 hours after bisac odyl suppo sitor y. 2024 - Constipatio n Milk of Magnesia Suspension 400 MG/5ML active 38804 7 RXNORM 30 ml Oral as needed PRN Give 30 ml by mouth as neede d for Const ipati on (Step 1) As neede d if no bowel movem ent for three days. (Do not use for Hemod ialys is patie nts). 2024 - Constipatio n Acetaminoph en Tablet 325 MG aborted 69842 2 RXNORM 2 table t Oral as needed PRN Give 2 table t by mouth every 6 hours as neede d for Pain Pain Total dosag e for aceta minop hen and medic ation s that conta in aceta minop hen shoul d not excee d 3 grams / 24 hours . AND Give 2 table t by mouth every 6 hours as neede d for Fever great er than 100.0 F Total dosag e for aceta minop hen and medic ation s that conta in aceta minop hen shoul d not excee d 3 grams / 24 hours . 08/03 Pain 45318 2 RXNORM 2 table t Oral as needed PRN Give 2 table t by mouth every 6 hours as neede d for Pain Pain Total dosag e for aceta minop hen and medic ation s that conta in aceta minop hen shoul d not excee d 3 grams / 24 hours . AND Give 2 table t by mouth every 6 hours as neede d for Fever great er than 100.0 F Total dosag e for aceta minop hen and medic ation s that conta in aceta minop hen shoul d not excee d 3 grams / 24 hours . 10/10/ 2025 10/13 /2025 Fever greater than 100.0F Bisacodyl Suppository 10 MG active 9 RXNORM 1 suppo sitor y Rectal as needed PRN Inser t 1 suppo sitor y recta lly as neede d for If no bowel movem ent for 8 hours after Milk of Magne jocelyne 2024 - If no bowel movement for 8 hours after Milk of Magnesia Lisinopril Oral Tablet active 2.5 mg Oral one time a day Routin e Give 2.5 mg via G-Tub e one time a day for blood press ure Hold for SBP<9 0 2024 - blood pressure Calcium Carbonate Oral Tablet active 300 mg Oral as needed PRN Give 300 mg via G-Tub e every 8 hours as neede d for heart burn 2024 - heart burn Famotidine Oral Tablet 20 MG active 09883 3 RXNORM 20 mg Oral two times a day Routin e Give 20 mg via G-Tub e two times a day for acid reflu x 2024 - acid reflux Acetaminoph en Oral Tablet active 975 mg Oral three times a day Routin e Give 975 mg via G-Tub e three times a day for pain 2024 - pain Haloperidol Oral Tablet 1 MG active 83786 1 RXNORM 1 mg Oral one time a day Routin e Give 1 mg via G-Tub e one time a day for schiz ophre clint 2024 - schizophren ia traZODone HCl Oral Tablet 50 MG active 93259 7 RXNORM 150 mg Oral at bedtime Routin e Give 150 mg via G-Tub e at bedti me for agita tion 2024 - agitation Ipratropium -Albuterol Solution 0.5-2.5 (3) MG/3ML active 63207 02 RXNORM 1 vial Inhala tion as needed PRN 1 vial inhal e orall y via nebul izer every 6 hours as neede d for SOB SHAWN = Clear lung sound s A DV = Adven titio us D IMI = Dimin ished 2024 - SOB Simethicone Oral Tablet active 80 mg Oral as needed PRN Give 80 mg via G-Tub e every 6 hours as neede d for dyspe psia 2024 - dyspepsia Haloperidol Oral Tablet 1 MG active 30307 1 RXNORM 3 mg Oral at bedtime Routin e Give 3 mg via G-Tub e at bedti me for schiz ophre clint 2024 - schizophren ia Capsaicin External Cream 0.025 % active 5 RXNORM n/a n/a Topica l as needed PRN Apply to affec ron lower back topic ally every 12 hours as neede d for pain 2024 - pain Bisacodyl Laxative Rectal Suppository 10 MG active 10 mg Rectal as needed PRN Inser t 10 mg recta lly every 24 hours as neede d for const ipati on 2024 - constipatio n Gabapentin Oral Tablet 100 MG active 89930 3 RXNORM 100 mg Oral one time a day Routin e Give 100 mg via G-Tub e one time a day for nerve pain 2024 - nerve pain Valproic Acid Oral Solution 250 MG/5ML aborted 25 ml Oral two times a day Routin e Give 25 ml via G-Tub e two times a day for antic onvul darren 08/03 anticonvuls ant metroNIDAZO LE Oral Tablet 500 MG active 07932 1 RXNORM 500 mg Oral two times a day Routin e Give 500 mg via G-Tub e two times a day for anti funga l 2024 - anti fungal Atorvastati n Calcium Oral Tablet 40 MG active 52763 1 RXNORM 40 mg Oral at bedtime Routin e Give 40 mg via G-Tub e at bedti nd for high dana stero l 2024 - high cholesterol cloZAPine Oral Tablet 100 MG active 5 RXNORM 200 mg Oral one time a day Routin e Give 200 mg via G-Tub e one time a day for for schiz ophre clint 2024 - for schizophren ia cloZAPine Oral Tablet 25 MG active 6 RXNORM 50 mg Oral one time a day Routin e Give 50 mg via G-Tub e one time a day for schiz ophre clint 2024 - schizophren ia Haloperidol Oral Tablet 1 MG aborted 85589 1 RXNORM 2 mg Oral as needed PRN Give 2 mg via G-Tub e every 12 hours as neede d for agita tion 08/03 agitation Lidocaine External Patch aborted n/a n/a Topica l one time a day Routin e Apply to affec ron area topic ally one time a day for pain 08/03 pain Gabapentin Oral Capsule active 300 mg Oral at bedtime Routin e Give 300 mg via G-Tub e at bedti me for nerve pain 2024 - nerve pain Doxazosin Mesylate Oral Tablet 1 MG active 5 RXNORM 1 mg Oral at bedtime Routin e Give 1 mg via G-Tub e at bedti me for blood press ure Hold for SBP<9 0 2024 - blood pressure Scopolamine Transdermal Patch 72 Hour active 1.5 mg Transd ermal every 72 hours Routin e Apply 1.5 mg trans derma lly every 72 hours for for nause a and vomit ing 2024 - for nausea and vomiting Valproic Acid Oral Solution 250 MG/5ML active 20 ml Oral two times a day Routin e Give 20 ml via G-Tub e two times a day for antic onvul darren 2024 - anticonvuls ant Sinemet Oral Tablet 25-100 MG aborted 49120 8 RXNORM 1 table t Oral three times a day Routin e Give 1 table t by mouth three times a day for parki nsons 08/03 parkinsons Icy Hot External Patch 5 % active n/a n/a Topica l one time a day Routin e Apply to Back topic ally one time a day for Pain and remov e per sched ule 2024 - Pain Sinemet Oral Tablet 25-100 MG active 88407 8 RXNORM 1 table t Oral three times a day Routin e Give 1 table t via G-Tub e three times a day for parki nsons 2024 - parkinsons Haloperidol Oral Tablet 1 MG active 41563 1 RXNORM 2 mg Oral as needed PRN Give 2 mg via G-Tub e every 12 hours as neede d for agita tion relat ed to LAURYN VAN (F20. 9) until 08/14 23:59 08/15 agitation Clotrimazol e External Cream 1 % active 20571 7 RXNORM n/a n/a Topica l two times a day Routin e Apply to bilat eral toes topic ally two times a day for athgary etes foot 2024 - atheletes foot Insurance Providers Plan of Treatment Section Interventions Intervention Code Code System Display Name Proposed D ate Problems Problem # Description Date of onset Resolved Date Code CodeSystem Concern Status 1 ACUTE RESPIRATORY FAILURE WITH HYPOXIA 07/31/[address] active 2 ATHEROSCLEROTIC HEART DISEASE OF [place] CORONARY ARTERY WITHOUT ANGINA PECTORIS 07/31/[address] active 3 BENIGN PROSTATIC HYPERPLASIA WITHOUT LOWER URINARY TRACT SYMPTOMS 07/31/[address] active 4 CHRONIC KIDNEY DISEASE, UNSPECIFIED 07/31/[address] active 5 DEPENDENCE ON OTHER ENABLING MACHINES AND DEVICES 07/31/[address] active 6 ESSENTIAL (PRIMARY) HYPERTENSION 07/31/[address] active 7 GASTRO-ESOPHAGEAL REFLUX DISEASE WITHOUT ESOPHAGITIS 07/31/[address] active 8 GASTROSTOMY STATUS 07/31/[address] active 9 GOUT, UNSPECIFIED 07/31/[address] active 10 MAJOR DEPRESSIVE DISORDER, RECURRENT, MILD 07/31/[address] active 11 OBSTRUCTIVE SLEEP APNEA (ADULT) (PEDIATRIC) 07/31/[address] active 12 OTHER MEDICAL TECHNICIANS (CURRENT) DRUG THERAPY 07/31/[address] active 13 PARKINSONISM, UNSPECIFIED 07/31/[address] active 14 PERSONAL HISTORY OF COVID-19 07/31/[address] active 15 PERSONAL HISTORY OF OTHER MENTAL AND BEHAVIORAL DISORDERS 07/31/[address] active 16 PERSONAL HISTORY OF PNEUMONIA (RECURRENT) 07/31/[address] active 17 PERSONAL HISTORY OF SUICIDAL BEHAVIOR 07/31/[address] active 18 PNEUMONITIS DUE TO INHALATION OF FOOD AND VOMIT 07/31/[address] active 19 SCHIZOPHRENIA, UNSPECIFIED 07/31/[address] active 20 SHORTNESS OF BREATH 07/31/[address] active 21 VASCULAR DEMENTIA, UNSPECIFIED SEVERITY, WITHOUT BEHAVIORAL DISTURBANCE, PSYCHOTIC DISTURBANCE, MOOD DISTURBANCE, AND ANXIETY 07/31/[address] active Reason for Referral No Reasons for Referral Entered Social History Social History Observation Description Start Date End Date Code Code System Current Smoking Status Tobacco smoking consumption unknown 067465052 SNOMED CT Sex Assigned At Male 1955 29909-7 [facility] Gender Identity Sexual Orientation Vital Signs Code Code System Vitals Name Values and Units Timing Information 9279-1 [facility] Respiratory Rate Value=22.0 Units=/m in 08/05/2025 8462-4 [facility] Blood Pressure-Diastolic Value=70 Un its=mmHg 08/05/2025 8480-6 [facility] Blood Pressure-Systolic Soaep=178 Un its=mmHg 08/05/2025 8310-5 [facility] Body Temperature Value=98.0 Units= F 08/05/2025 8867-4 [facility] Heart rate Caufe=560.0 Units=/min 08/05/2025 25371-5 [facility] O2 % BldC Oximetry Value=85.0 Units= % 08/05/2025 69954-4 [facility] Pain Level Value=1.0 08/05/2025 90464-1 [facility] Weight Aqyha=452.6 Units=Lbs 8302-2 [facility] Height Value=71.0 Units=Inches 07/31/2025
--- OUTSIDE RECORDS SUMMARY | 2025-08-05 07:49 | XMS_ITS | Encounter Summary ---
Author Organization [facility] Address [address] [place] [address] Care Team Providers Care Account Receivable Associate Name Role Phone Malcolm Edmondson Primary Care Provider [phone] System, Provider Not In Primary Care Provider Un available Kalyan, Johanna Alonso Primary Care Provider Unavai lable Kalyan, Johanna Alonso Primary Care Provider Unavai lable Unknown, Provider Primary Care Provider Unava ilable None, Pcp Primary Care Provider Unavailabl Johanna Gallegos MD Primary Care Provider [phone] None, Pcp Primary Care Provider Unavailabl Skye Madison MD Primary Care Provider [phone] Kilo Valera Jr. Primary Care Provid er Skye De Leon MD Primary Care Provider [phone] Encounter Details Date Type Department Care Team (Late st Contact Info) Description 03/08/2015 Orders Only [facility] - [address] [place] [address] Carter Rhodes [address] [place] [address] Social History Tobacco Use Types [...] documented as of this encounter Care Teams Account Receivable Associate Relationship Specialty Start Date End Date Malcolm Edmondson PCP - General 08/31/14 12/31/19 System, Provider Not In PCP - General 01/01/20 04/13/20 Johanna Biggs [address] [place] [address] [place] [address] PCP - General 04/14/20 10/27/[address] [place], [place] [address] PCP - General 10/28/20 01/03/21 Unknown, Provider, [address] [place] [address] PCP - General 01/04/21 03/10/21 None, Pcp, [address] [place] [address] PCP - General 03/11/21 11/22/21 Johanna Biggs MD [address] [place] [address] PCP - General Family Practice 11/23/21 05/29/22 None, MD Rere [address] [place] [address] PCP - General 05/30/22 05/31/22 Skye De Leon MD [address] [place] [address] PCP - General Internal Medicine 06/01/22 11/08/22 Kilo Valera Jr. [address] [place] [address] PCP - General 11/09/22 12/17/22 Skye De Leon MD [address] [place] [address] PCP - General Internal Medicine 12/18/22 documented as of this encounter
--- OUTSIDE RECORDS SUMMARY | 2025-08-05 07:49 | XMS_ITS | Encounter Summary ---
Author Organization [facility]anna Address [address] [place] [address] Care Team Providers Care Tableau Administrator Name Role Phone Malcolm Edmondson Primary Care Provider [phone] System, Provider Not In Primary Care Provider Un available Kalyan, Johanna Alonso Primary Care Provider Unavai lable Kalyan, Johanna Alonso Primary Care Provider Unavai lable Unknown, Provider Primary Care Provider Unava ilable None, Pcp Primary Care Provider Unavailabl e Kalyan, Johanna Allen MD Primary Care Provider [phone] None, Pcp Primary Care Provider Unavailabl e Skye De Leon MD Primary Care Provider [phone] Kilo Valera Jr. Primary Care Provid er Skye De Leon MD Primary Care Provider [phone] Encounter Details Date Type Department Care Team (Late st Contact Info) Description 03/31/2015 Orders Only [facility] - [address] [place] [address] Param Rhodes MD [address] [place] [address] Schizoaffective disorder, unspecified condition (Primary Dx) Social [...] - 1.3 mg/dL 05/12/2015 7:38 PM EDT [facility] GFR Historical (MDRD) 54(L) >=60 mL/min/BSA 05/12/2015 7:38 PM EDT [facility] Estimated GFR (MDRD) 45(L) >=60 mL/min/BSA 05/12/2015 7:38 PM EDT [facility] Blood specimen (specimen) Venipuncture / Unknown 05/12/2015 5:30 PM EDT 05/12/2015 6:03 PM EDT [facility] - 05/12/2015 7:38 PM EDT Chronic Kidney Disease(CKD) Stages based on estimated GFR: GFR ml/min/1.73m^2 Stage of CKD 30-59 3 15-29 4 <15(or dialysis) 5 The GFR estimate is not accurate for: a) Acute renal failure. b) Dosage calculations for Pharmacy drugs. Param Rhodes MD LAB BLOOD ORDERABLES Final Re sult [address] [phone] * (ABNORMAL) Hepatic Function Panel (05/12/2015 5:30 PM EDT) Total Protein 7.1 6.2 - 8.2 g/dL 05/12/2015 7:38 PM T [facility] Albumin, Blood 3.7 3.4 - 4.9 g/dL 05/12/2015 7:38 PM EDT [facility] Total Bilirubin 0.4 0.2 - 1.3 mg/dL 05/12/2015 7:38 PM EDT [facility] Direct Bilirubin 0.1 0.1 - 0.5 mg/dL 05/12/2015 7:38 PM EDT [facility] Alkaline Phosphatase 120(H) 30 - 115 IU/L 05/12/2015 7:38 PM EDT [facility] AST (SGOT) 24 11 - 40 IU/L 05/12/2015 7:38 PM EDT [facility] ALT (SGPT) 34 7 - 40 IU/L 05/12/2015 7:38 PM EDT [facility] Blood specimen (specimen) Venipuncture / Unknown 05/12/2015 5:30 PM EDT 05/12/2015 6:03 PM EDT Param Rhodes MD LAB BLOOD ORDERABLES Final Re sult Performing Organization Address [facility]/ZIP Co de Phone Number [address] [address] * Valproic Acid Level (05/12/2015 5:30 PM EDT) Valproic Acid Level, Blood 72 50 - 100 ug/mL 05/12/2015 7:27 PM EDT [facility] Blood specimen (specimen) Venipuncture / Unknown 05/12/2015 5:30 PM EDT 05/12/2015 6:03 PM EDT Param Rhodes MD LAB BLOOD ORDERABLES Final Re sult Performing Organization Address [facility]/ZIP Co de Phone Number [address] [address] * (ABNORMAL) Creatinine with GFRE (04/07/2015 5:31 PM EDT) Creatinine, Blood 1.6(H) 0.6 - 1.3 mg/dL 04/07/2015 7:52 PM EDT [facility] GFR Historical (MDRD) 54(L) >=60 mL/min/BSA 04/07/2015 7:52 PM EDT [facility] Estimated GFR (MDRD) 45(L) >=60 mL/min/BSA 04/07/2015 7:52 PM EDT [facility] Blood specimen (specimen) Venipuncture / Unknown 04/07/2015 5:31 PM EDT 04/07/2015 6:11 PM EDT Narrative [facility] - 04/07/2015 7:52 PM EDT Chronic Kidney Disease(CKD) Stages based on estimated GFR: GFR ml/min/1.73m^2 Stage of CKD 30-59 3 15-29 4 <15(or dialysis) 5 The GFR estimate is not accurate for: a) Acute renal failure. b) Dosage calculations for Pharmacy drugs. Param Rhodes MD LAB BLOOD ORDERABLES Final Re sult [address] [phone] * Hepatic Function Panel (04/07/2015 5:31 PM EDT) Total Protein 6.9 6.2 - 8.2 g/dL 04/07/2015 7:52 PM EDT [facility] Albumin, Blood 3.6 3.4 - 4.9 g/dL 04/07/2015 7:52 PM T [facility] Total Bilirubin 0.4 0.2 - 1.3 mg/dL 04/07/2015 7:52 PM T [facility] Direct Bilirubin 0.2 0.1 - 0.5 mg/dL 04/07/2015 7:52 PM T [facility] Alkaline Phosphatase 100 30 - 115 IU/L 04/07/2015 7:52 PM T [facility] AST (SGOT) 19 11 - 40 IU/L 04/07/2015 7:52 PM EDT [facility] ALT (SGPT) 30 7 - 40 IU/L 04/07/2015 7:52 PM EDT [facility] Blood specimen (specimen) Venipuncture / Unknown 04/07/2015 5:31 PM EDT 04/07/2015 6:11 PM EDT Param Rhodes MD LAB BLOOD ORDERABLES Final Re sult Performing Organization Address City/[facility]/ZIP Co de Phone Number [address] [address] * Valproic Acid Level (04/07/2015 5:31 PM EDT) Valproic Acid Level, Blood 60 50 - 100 ug/mL 04/07/2015 7:35 PM EDT [facility] Blood specimen (specimen) Venipuncture / Unknown 04/07/2015 5:31 PM EDT 04/07/2015 6:11 PM EDT Param Rhodes MD LAB BLOOD ORDERABLES Final Re sult Performing Organization Address [facility] Co de Phone Number [address] [address] documented in this encounter Visit Diagnoses Diagnosis [...] documented as of this encounter Care Teams Tableau Administrator Relationship Specialty Start Date End Date Malcolm Edmondson PCP - General 08/31/14 12/31/19 System, Provider Not In PCP - General 01/01/20 04/13/20 Johanna Biggs [address] [place] [address] [address] [place] [address] PCP - General 04/14/20 10/27/20 Johanna Biggs [address] [place] [address] [address] [place] [address] PCP - General 10/28/20 01/03/21 Unknown, Provider, [address] [place] [address] PCP - General 01/04/21 03/10/21 None, Pcp, [address] [place] [address] PCP - General 03/11/21 11/22/21 Johanna Biggs MD [address] [place] [address] PCP - General Family Practice 11/23/21 05/29/22 None, Pcp, [address] [place] [address] PCP - General 05/30/22 05/31/22 Skye De Leon MD [address] [place] [address] PCP - General Internal Medicine 06/01/22 11/08/22 Kilo Valera Jr. [address] [place] [address] PCP - General 11/09/22 12/17/22 Skye De Leon MD [address] [place] [address] PCP - General Internal Medicine 12/18/22 documented as of this encounter
--- OUTSIDE RECORDS SUMMARY | 2025-08-05 07:49 | XMS_ITS | Encounter Summary ---
Author Organization Kaylin hanna Address [address] [place] [address] Care Team Providers Care Divorce Attorney Name Role Phone Malcolm Edmondson Primary Care Provider [phone] System, Provider Not In Primary Care Provider Un available Kalyan, Johanna Alonso Primary Care Provider Unavai lable Kalyan, Johanna Alonso Primary Care Provider Unavai lable Unknown, Provider Primary Care Provider Unava ilable None, Pcp Primary Care Provider Unavailabl e Kalyan, Johanna Allen MD Primary Care Provider [phone] None, Pcp Primary Care Provider Unavailabl Skye Madison MD Primary Care Provider [phone] Kilo Valera Jr. Primary Care Provid er Skye De Leon MD Primary Care Provider [phone] Encounter Details Date Type Department Care Team (Late st Contact Info) Description 11/29/2016 Orders Only [facility] [address] [facility] - [address] [place] [address] Param Rhodes MD [address] [place] [address] Schizoaffective disorder (Primary Dx) Social History Tobacco [...] this encounter Visit Diagnoses Diagnosis Schizoaffective disorder ([facility] Primary Schizoaffective disorder, unspecified condition documented in [...] documented as of this encounter Care Teams Divorce Attorney Relationship Specialty Start Date End Date Malcolm Edmondson PCP - General 08/31/14 12/31/19 System, Provider Not In PCP - General 01/01/20 04/13/20 Johanna Biggs [address] [place] [address] [address] [place] [address] PCP - General 04/14/20 10/27/20 Johanna Biggs [address] [place] [address] [place] [address] PCP - General 10/28/20 01/03/21 Unknown, Provider, [address] [place] [address] PCP - General 01/04/21 03/10/21 None, PcpMD [address] [place] [address] PCP - General 03/11/21 11/22/21 Johanna Biggs MD [address] [place] [address] PCP - General Family Practice 11/23/21 05/29/22 None, PcpMD [address] [place] [address] PCP - General 05/30/22 05/31/22 Skye De Leon MD [address] [place] [address] PCP - General Internal Medicine 06/01/22 11/08/22 Kilo Valera Jr. [address] [place] [address] PCP - General 11/09/22 12/17/22 Skye De Leon MD [address] [place] [address] PCP - General Internal Medicine 12/18/22 documented as of this encounter
--- OUTSIDE RECORDS SUMMARY | 2025-08-05 07:49 | XMS_ITS | Encounter Summary ---
Author Organization Kaylin hanna Address [address] [place] [address] Care Team Providers Care Egg Caser Name Role Phone Malcolm Edmondson Primary Care Provider [phone] System, Provider Not In Primary Care Provider Un available Kalyan, Johanna Alonso Primary Care Provider Unavai lable Kalyan, Johanna Alonso Primary Care Provider Unavai lable Unknown, Provider Primary Care Provider Unava ilable None, Pcp Primary Care Provider Unavailabl e Kalyan, Johanna Allen MD Primary Care Provider [phone] None, Pcp Primary Care Provider Unavailabl e Skye De Leon MD Primary Care Provider [phone] Kilo Valera Jr. Primary Care Provid er Skye De Leon MD Primary Care Provider [phone] Encounter Details Date Type Department Care Team (Late st Contact Info) Description 11/29/2016 Orders Only [facility] - [address] [place] [address] Param Rhodes MD [address] [place] [address] Schizoaffective disorder, bipolar type (Primary Dx) Social [...] Visit Diagnoses Diagnosis Schizoaffective disorder, bipolar type ([facility])- Primary Schizoaffective disorder, unspecified condition documented in [...] documented as of this encounter Care Teams Egg Caser Relationship Specialty Start Date End Date Malcolm Edmondson PCP - General 08/31/14 12/31/19 System, Provider Not In PCP - General 01/01/20 04/13/20 Johanna Biggs [address] [place] [address] [place] [address] PCP - General 04/14/20 10/27/20 Johanna Biggs [address] [place] [address] [place] [address] PCP - General 10/28/20 01/03/21 Unknown, Provider, [address] [place] [address] PCP - General 01/04/21 03/10/21 None, Pcp, [address] [place] [address] PCP - General 03/11/21 11/22/21 Johanna Biggs MD [address] [place] [address] PCP - General Family Practice 11/23/21 05/29/22 None, PcpMD [address] [place] [address] PCP - General 05/30/22 05/31/22 Skye De Leon MD [address] [place] [address] PCP - General Internal Medicine 06/01/22 11/08/22 Kilo Valera Jr. [address] [place] [address] PCP - General 11/09/22 12/17/22 Skye De Leon MD [address] [place] [address] PCP - General Internal Medicine 12/18/22 documented as of this encounter
--- OUTSIDE RECORDS SUMMARY | 2025-08-05 07:49 | XMS_ITS | Encounter Summary ---
Author Organization Kaylin hanna Address [address] [place] [address] Care Team Providers Care Ada Accommodation Consultant Name Role Phone Malcolm Edmondson Primary Care Provider [phone] System, Provider Not In Primary Care Provider Un available Kalyan, Johanna Alonso Primary Care Provider Unavai lable Kalyan, Johanna Alonso Primary Care Provider Unavai lable Unknown, Provider Primary Care Provider Unava ilable None, Pcp Primary Care Provider Unavailabl e Kalyan, Johanna Allen MD Primary Care Provider [phone] None, Pcp Primary Care Provider Unavailabl e Skye De Leon MD Primary Care Provider [phone] Kilo Valera Jr. Primary Care Provid er Skye De Leon MD Primary Care Provider [phone] Encounter Details Date Type Department Care Team (Late st Contact Info) Description 11/29/2016 Orders Only [facility] [address] [facility] - [address] [place] [address] Param Rhodes MD [address] [place] [address] Social History Tobacco Use Types Packs/Day Years [...] documented as of this encounter Care Teams Ada Accommodation Consultant Relationship Specialty Start Date End Date Malcolm Edmondson PCP - General 08/31/14 12/31/19 System, Provider Not In PCP - General 01/01/20 04/13/20 Johanna Biggs [address] [place] [address] [address] [place] [address] PCP - General 04/14/20 10/27/20 Johanna [place] [address] PCP - General 10/28/20 01/03/21 Unknown, Provider, [address] [place] [address] PCP - General 01/04/21 03/10/21 None, Pcp, [address] [place] [address] PCP - General 03/11/21 11/22/21 Johanna Biggs MD [address] [place] [address] PCP - General Family Practice 11/23/21 05/29/22 None, MD Rere [address] [place] [address] PCP - General 05/30/22 05/31/22 Skye De Leon MD [address] [place] [address] PCP - General Internal Medicine 06/01/22 11/08/22 Kilo Valera Jr. [address] [place] [address] PCP - General 11/09/22 12/17/22 Skye De Leon MD [address] [place] [address] PCP - General Internal Medicine 12/18/22 documented as of this encounter
--- OUTSIDE RECORDS SUMMARY | 2025-08-05 07:49 | XMS_ITS | Clinical Summary ---
Author Organization [facility] jacques Address [address] [place] [address] Care Team Providers Care Clinical Research Analyst Name Role Phone Skye De Leon MD Primary Care Provider [phone] Allergies Active Allergy Reactions Criticality Noted Date [...] every 6 hours as needed for flatulence. Active valproate (DEPAKENE) 250 mg/5 mL Soln 10 mL (500 mg total) by G-tube route 2 times a day. Active sodium chloride (OCEAN) 0.65 % nasal spray 2 sprays into each nostril every 2 hours as needed for congestion. 5 Active Active Problems Problem Noted Date Diagnosed [...] - 06/25/2025 7:33 PM EDT Hospital Encounter [facility] [place] [address] Rajwinder Caldwell MD Dagan, MD Michelle Giraldo Shamai A, MD Dowdell, MD Prashant Hilliard, MD Mary Vergara, MD Magnus Vera Matthew, MD Basilio, Carlo, MD Roy, MD Elizabeth Haro, Mohinder Ham, MD Carranza, Noe, MD Xie, SourMD Rod michelle Wendy, MD Deng, Lixia, MD Hale, Caleb P, MD Minor, Noah A, MD Wagner, Benjamin, MD Li, MD Trinidad Jorge David, MD Rosenberg, MD Mariano Altered mental status, unspecified altered mental status type (Primary Dx); Tachycardia; Unclassified epileptic seizures ; Chest pain, unspecified type; Schizoaffective disorder, depressive type ; Aspiration into airway, sequela; Aspiration pneumonitis ; retirement current use of therapeutic drug; Abnormal electrocardiography [...] the Last Year Not on file 2024 [facility] Utilities Answer Date Recorded In the [...] 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 Ventricular Heart Rate 101 BPM EKG BUR MUSE Atrial Heart Rate 101 BPM EKG B[facility] MUSE TN Interval 142 ms EKG BUR MUSE QRSD Interval 108 ms EKG B[facility] MUSE QT Interval 372 ms EKG B[facility] MUSE QTC Interval 482 ms EKG BUR MUSE P [place] 30 degrees EKG BUR MUSE R [place] -29 degrees EKG BUR MUSE T Wave [place] 30 degrees EKG BUR MUSE 06/25/2025 11:1 8 AM EDT 06/26/2025 6:13 PM EDT Narrative EKG KATH BOLIVAR - 06/26/2025 6:13 PM EDT Sinus tachycardia left ventricular hypertrophy Abnormal ECG When compared with ECG of 18-Jun-2025 11:53, No significant change was found Procedure Note Keaton Amaro MD - 06/26/2025 Sinus tachycardia left ventricular hypertrophy Abnormal ECG When compared with ECG of 18-Jun-2025 11:53, No significant change was found us Mariano Crabtree MD ECG ORDERABLES Final Result EKG KATH BOLIVAR [address] [place] [id number] * (ABNORMAL) Renal Function Panel (06/22/2025 5:26 AM EDT) Only the most recent of3 resultswithin the time period is included. Sodium 142 135 - 147 mmol/L 06/22/2025 6:44 AM EDT [facility] Potassium 4.2 3.5 - 5.4 mmol/L 06/22/2025 6:44 AM EDT [facility] Chloride 103 96 - 108 mmol/L 06/22/2025 6:44 AM EDT [facility] Total CO2/Bicarbonate 28 22 - 32 mmol/L 06/22/2025 6:44 AM EDT [facility] Anion Gap 11 10 - 18 mmol/L 06/22/2025 6:44 AM EDT [facility] BUN 27(H) 6 - 20 mg/dL 06/22/2025 6:44 AM EDT [facility] Creatinine, Blood 0.80 0.50 - 1.20 mg/dL 06/22/2025 6:44 AM EDT [facility] Glucose, Blood 141(H) 70 - 100 mg/dL 06/22/2025 6:44 AM EDT [facility] Calcium 9.0 8.4 - 10.3 mg/dL 06/22/2025 6:44 AM EDT [facility] Albumin, Blood 3.1(L) 3.5 - 5.2 g/dL 06/22/2025 6:44 AM EDT [facility] Phosphorus 3.7 2.7 - 4.5 mg/dL 06/22/2025 6:44 AM EDT [facility] Magnesium, Blood 2.2 1.6 - 2.6 mg/dL 06/22/2025 6:44 AM EDT [facility] Estimated GFR(CKD-EPI) 96 mL/min/BSA 06/22/2025 6:44 AM EDT [facility] Blood PERIPHERAL BLOOD SPECIMEN / Unknown Venipuncture / Unknown 06/22/2025 5:26 AM EDT 06/22/2025 5:47 AM EDT us Govind Olivo MD LAB BLOOD ORDERABLES Final Result [facility] [address] [place] [address], [place] * (ABNORMAL) CBC and Differential (06/22/2025 12:37 AM EDT) Only the most recent of18 resultswithin the time period is included. WBC 6.62 4.00 - 10.00 K/uL 06/22/2025 1:15 AM EDT [facility] RBC 3.67(L) 4.60 - 6.10 M/uL 06/22/2025 1:15 AM EDT [facility] Hemoglobin 11.3(L) 13.7 - 17.5 g/dL 06/22/2025 1:15 AM EDT [facility] Hematocrit 34.7(L) 40.0 - 51.0 % 06/22/2025 1:15 AM EDT [facility] MCV 95 82 - 98 fL 06/22/2025 1:15 AM EDT [facility] MCH 30.8 26.0 - 32.0 pg 06/22/2025 1:15 AM EDT [facility] MCHC 32.6 32.0 - 37.0 g/dL 06/22/2025 1:15 AM [facility] RDW 15.5 10.5 - 15.5 % 06/22/2025 1:15 AM [facility] RDW-SD 53.1(H) 35.1 - 46.3 fL 06/22/2025 1:15 AM [facility] Platelet Count 185 150 - 400 K/uL 06/22/2025 1:15 AM [facility] Nucleated RBC 0 <=0 #/100 WBC 06/22/2025 1:15 AM [facility] Neutrophil 67.5 34.0 - 71.0 % 06/22/2025 1:15 AM [facility] Lymphocyte 20.1 19.0 - 53.0 % 06/22/2025 1:15 AM [facility] Monocyte 10.6 5.0 - 13.0 % 06/22/2025 1:15 AM [facility] Eosinophil 0.0(L) 1.0 - 7.0 % 06/22/2025 1:15 AM [facility] Basophil 0.3 0.0 - 1.0 % 06/22/2025 1:15 AM [facility] Immature Granulocyte ([place], Myelo, Promyelocyte) 1.5(H) 0.0 - 0.6 % 06/22/2025 1:15 AM [facility] Absolute Neutrophil Count 4.47 1.60 - 6.10 K/uL 06/22/2025 1:15 AM [facility] Absolute Lymphocyte Count 1.33 1.20 - 3.70 K/uL 06/22/2025 1:15 AM [facility] Absolute Monocyte Count 0.70 0.20 - 0.80 K/uL 06/22/2025 1:15 AM [facility] Absolute Eosinophil Count 0.00(L) 0.04 - 0.54 K/uL 06/22/2025 1:15 AM [facility] Absolute Basophil Count 0.02 0.01 - 0.08 K/uL 06/22/2025 1:15 AM [facility] Absolute Immature Granulocyte ([place], Myelo, Promyelocyte) 0.10(H) 0.00 - 0.09 K/uL 06/22/2025 1:15 AM EDT [facility] Blood PERIPHERAL BLOOD SPECIMEN / Unknown Venipuncture / Unknown 06/22/2025 12:37 AM EDT 06/22/2025 1:04 AM EDT us Govind Olivo MD LAB BLOOD ORDERABLES Final Result [facility] [address] [place] [address], [place] * XR Abdomen 1 VW (06/16/2025 [...] Govind Olivo MD IMG DIAGNOSTIC IMAGING ORDE RABLES Final Result * (ABNORMAL) Valproic Acid Level (06/15/2025 9:42 PM EDT) Only the most recent of2 resultswithin the time period is included. Valproic Acid Level, Blood 49(L) 50 - 100 ug/mL 06/15/2025 10:29 PM EDT [facility] Blood PERIPHERAL BLOOD SPECIMEN / Unknown Venipuncture / Unknown 06/15/2025 9:42 PM EDT 06/15/2025 9:45 PM EDT us Govind Olivo MD LAB BLOOD ORDERABLES Final Result [facility] [address] [place] [address], * Clozapine Level, Blood (06/15/2025 9:41 PM EDT) Only the most recent of2 resultswithin the time period is included. Norclozapine 88 25 - 400 mcg/L 06/19/2025 3:00 PM EDT [facility] Clozapine 224 mcg/L 06/19/2025 3:00 PM EDT [facility] Comment: The therapeutic response begins to appear at 100 mcg/L. Refractory schizophrenia appears to require a therapeutic concentration of at least 350 mcg/L (trough, at steady state). Toxic range: Greater than 900 mcg/L This test was developed and its analytical performance characteristics have been determined by [employer] [place], [place]. It has not been cleared or approved by the U.S. Food and Drug Administration. This assay has been validated pursuant to the CLIA regulations and is used for clinical purposes. Blood PERIPHERAL BLOOD SPECIMEN / Unknown Venipuncture / Unknown 06/15/2025 9:41 PM EDT 06/15/2025 9:45 PM EDT Narrative [facility] 06/19/2025 3:00 PM EDT Performing Organization Information: Site ID: [id number] Name: [facility] Address: [address] [place] [address] Director: LEONEL RUIZ MD,PHD Govind Olivo MD LAB BLOOD ORDERABLES Final Result Performing Organization Address [facility]/ZIP Co de Phone Number [address] [address], * Valproic Acid Level, Free (06/15/2025 9:41 PM EDT) Valproic Acid, Free 13.7 4.8 - 17.3 mg/L 06/19/2025 3:00 PM EDT [facility] Comment: Nonlinear drug binding properties result in the fraction of free valproic acid increasing as total drug increases. The free valproic acid fraction may range from 5% to 25% for the total drug range of 30-160 mg/L. Blood PERIPHERAL BLOOD SPECIMEN / Unknown Venipuncture / Unknown 06/15/2025 9:41 PM EDT 06/15/2025 9:45 PM EDT Narrative [facility] 06/19/2025 3:00 PM EDT Performing Organization Information: Site ID: [id number] Name: [employer] [facility] Address: [address] [place] [id number] Director: FIDEL CRAWFORD MD Govind Olivo MD LAB BLOOD ORDERABLES Final Result Performing Organization Address City/[facility]/ZIP Co de Phone Number [facility] [address] [place] [address], [place] [phone] * (ABNORMAL) CBC (06/15/2025 6:23 AM EDT) Only the most recent of8 resultswithin the time period is included. WBC 8.69 4.00 - 10.00 K/uL 06/15/2025 6:52 AM EDT [facility] RBC 3.83(L) 4.60 - 6.10 M/uL 06/15/2025 6:52 AM EDT [facility] Hemoglobin 11.6(L) 13.7 - 17.5 g/dL 06/15/2025 6:52 AM EDT [facility] Hematocrit 36.2(L) 40.0 - 51.0 % 06/15/2025 6:52 AM EDT [facility] MCV 95 82 - 98 fL 06/15/2025 6:52 AM EDT [facility] MCH 30.3 26.0 - 32.0 pg 06/15/2025 6:52 AM EDT [facility] MCHC 32.0 32.0 - 37.0 g/dL 06/15/2025 6:52 AM EDT [facility] RDW 14.5 10.5 - 15.5 % 06/15/2025 6:52 AM EDT [facility] RDW-SD 49.3(H) 35.1 - 46.3 fL 06/15/2025 6:52 AM EDT [facility] Platelet Count 256 150 - 400 K/uL 06/15/2025 6:52 AM EDT [facility] Nucleated RBC 0 <=0 #/100 WBC 06/15/2025 6:52 AM EDT [facility] Blood PERIPHERAL BLOOD SPECIMEN / Unknown Venipuncture / Unknown 06/15/2025 6:23 AM EDT 06/15/2025 6:36 AM EDT us Urban Mondragon MD LAB BLOOD ORDERABLES Final Resul t [facility] [address] [place] [address], [place] * Phosphorus (06/15/2025 6:22 AM EDT) Only the most recent of16 resultswithin the time period is included. Phosphorus 3.4 2.7 - 4.5 mg/dL 06/15/2025 7:14 AM EDT [facility] Blood PERIPHERAL BLOOD SPECIMEN / Unknown Venipuncture / Unknown 06/15/2025 6:22 AM EDT 06/15/2025 6:36 AM EDT Urban Mondragon MD LAB BLOOD ORDERABLES Final Resul t Performing Organization Address City/[facility]/ZIP Co de Phone Number [facility] [address] [place] [address], [place] * Magnesium (06/15/2025 6:22 AM EDT) Only the most recent of16 resultswithin the time period is included. Magnesium, Blood 2.1 1.6 - 2.6 mg/dL 06/15/2025 7:14 AM EDT [facility] Blood PERIPHERAL BLOOD SPECIMEN / Unknown Venipuncture / Unknown 06/15/2025 6:22 AM EDT 06/15/2025 6:36 AM EDT Urban Mondragon MD LAB BLOOD ORDERABLES Final Resul t [facility] [address] [place] [address], [place] * (ABNORMAL) Hepatic Function Panel (06/15/2025 6:22 AM EDT) Only the most recent of15 resultswithin the time period is included. Total Protein 5.9(L) 6.4 - 8.3 g/dL 06/15/2025 7:32 AM EDT [facility] Albumin, Blood 2.9(L) 3.5 - 5.2 g/dL 06/15/2025 7:32 AM EDT [facility] Globulin Result 3.0 2.0 - 4.0 g/dL 06/15/2025 7:32 AM EDT [facility] Total Bilirubin 0.2 0.0 - 1.5 mg/dL 06/15/2025 7:32 AM EDT [facility] Direct Bilirubin <0.1 0.0 - 0.3 mg/dL 06/15/2025 7:32 AM EDT [facility] Alkaline Phosphatase 117 40 - 130 U/L 06/15/2025 7:32 AM EDT [facility] AST (SGOT) 22 0 - 40 U/L 06/15/2025 7:32 AM EDT [facility] ALT (SGPT) 14 0 - 40 U/L 06/15/2025 7:32 AM EDT [facility] Blood PERIPHERAL BLOOD SPECIMEN / Unknown Venipuncture / Unknown 06/15/2025 6:22 AM EDT 06/15/2025 6:36 AM EDT us Urban Mondragon MD LAB BLOOD ORDERABLES Final Resul t [facility] [address] [place] [address], * (ABNORMAL) Basic Metabolic Panel (06/15/2025 6:22 AM EDT) Only the most recent of15 resultswithin the time period is included. Sodium 142 135 - 147 mmol/L 06/15/2025 7:14 AM EDT [facility] Potassium 4.2 3.5 - 5.4 mmol/L 06/15/2025 7:14 AM EDT [facility] Chloride 104 96 - 108 mmol/L 06/15/2025 7:14 AM EDT [facility] Total CO2/Bicarbonat e 29 22 - 32 mmol/L 06/15/2025 7:14 AM EDT [facility] Anion Gap 9(L) 10 - 18 mmol/L 06/15/2025 7:14 AM EDT [facility] BUN 28(H) 6 - 20 mg/dL 06/15/2025 7:14 AM EDT [facility] Creatinine, Blood 0.90 0.50 - 1.20 mg/dL 06/15/2025 7:14 AM EDT [facility] Glucose, Blood 109(H) 70 - 100 mg/dL 06/15/2025 7:14 AM EDT [facility] Calcium 8.9 8.4 - 10.3 mg/dL 06/15/2025 7:14 AM EDT [facility] Blood PERIPHERAL BLOOD SPECIMEN / Unknown Venipuncture / Unknown 06/15/2025 6:22 AM EDT 06/15/2025 6:36 AM EDT us Urban Mondragon MD LAB BLOOD ORDERABLES Final Resul t Performing Organization Address City/[facility]/ZIP Co de Phone Number [facility] [address] [place] [address], [place] * (ABNORMAL) POCT Glucose (06/11/2025 1:54 PM EDT) Only the most recent of47 resultswithin the time period is included. Glucose, POC 118(H) 70 - 100 mg/dL 06/11/2025 2:05 PM EDT [facility] Comment: @Serial Dqeweb=[id number] @Kiln Tender UD=[id number] Blood 06/11/2025 1:54 PM EDT 06/11/2025 2:05 PM EDT us Feliciano Choi MD POCT ORDERABLES - DEVICE Patricia l Result Performing Organization Address City/[facility]/ZIP Co de Phone Number [facility] [address] [place] [address], [place] * [place] Modified Barium Swallow Incl [...] 4.00 - 10.00 K/uL 06/10/2025 9:52 AM [facility] Neutrophil 85.5(H) 34.0 - 71.0 % 06/10/2025 9:52 AM [facility] Lymphocyte 7.7(L) 19.0 - 53.0 % 06/10/2025 9:52 AM [facility] Monocyte 5.6 5.0 - 13.0 % 06/10/2025 9:52 AM [facility] Eosinophil 0.0(L) 1.0 - 7.0 % 06/10/2025 9:52 AM [facility] Basophil 0.4 0.0 - 1.0 % 06/10/2025 9:52 AM [facility] Nucleated RBC 0 <=0 #/100 WBC 06/10/2025 9:52 AM [facility] Absolute Neutrophil Count 16.18(H) 1.60 - 6.10 K/uL 06/10/2025 9:52 AM [facility] Absolute Lymphocyte Count 1.45 1.20 - 3.70 K/uL 06/10/2025 9:52 AM [facility] Absolute Monocyte Count 1.06(H) 0.20 - 0.80 K/uL 06/10/2025 9:52 AM [facility] Absolute Eosinophil Count 0.00(L) 0.04 - 0.54 K/uL 06/10/2025 9:52 AM [facility] Absolute Basophil Count 0.07 0.01 - 0.08 K/uL 06/10/2025 9:52 AM [facility] Immature Granulocyte ([place], Myelo, Promyelocyte) 0.8(H) 0.0 - 0.6 % 06/10/2025 9:52 AM [facility] Absolute Immature Granulocyte ([place], Myelo, Promyelocyte) 0.16(H) 0.00 - 0.09 K/uL 06/10/2025 9:52 AM [facility] Blood PERIPHERAL BLOOD SPECIMEN / Unknown Venipuncture / Unknown 06/10/2025 7:20 AM EDT 06/10/2025 7:30 AM EDT us Feliciano Choi MD LAB BLOOD ORDERABLES Final Re sult [facility] [address] [place] [address], [place] * (ABNORMAL) Manual Diff and Morph (06/02/2025 5:41 AM EDT) Only the most recent of5 resultswithin the time period is included. Neutrophil 73(H) 34 - 71 % 06/02/2025 8:02 AM EDT [facility] Lymphocyte 12(L) 19 - 53 % 06/02/2025 8:02 AM EDT [facility] Monocyte 7 5 - 13 % 06/02/2025 8:02 AM EDT [facility] Eosinophil 0(L) 1 - 7 % 06/02/2025 8:02 AM EDT [facility] Basophil 0 0 - 1 % 06/02/2025 8:02 AM EDT [facility] Band 4 0 - 5 % 06/02/2025 8:02 AM EDT [facility] Metamyelocyte 2(H) <=0 % 06/02/2025 8:02 AM EDT [facility] Myelocyte 2(H) <=0 % 06/02/2025 8:02 AM EDT [facility] Absolute Neutrophil Count 15.65(H) 1.60 - 6.10 K/uL 06/02/2025 8:02 AM EDT [facility] Absolute Lymphocyte Count 2.44 1.20 - 3.70 K/uL 06/02/2025 8:02 AM EDT [facility] Absolute Monocyte Count 1.42(H) 0.20 - 0.80 K/uL 06/02/2025 8:02 AM EDT [facility] Absolute Eosinophil Count 0.00(L) 0.04 - 0.54 K/uL 06/02/2025 8:02 AM EDT [facility] Absolute Basophil Count 0.00(L) 0.01 - 0.08 K/uL 06/02/2025 8:02 AM EDT [facility] Platelet Est Normal Normal 06/02/2025 8:02 AM EDT [facility] ANISOCYTOSIS 1+ 06/02/2025 8:02 AM EDT [facility] Microcytosis 1+ 06/02/2025 8:02 AM EDT [facility] Poikilocytosis 1+ 06/02/2025 8:02 AM EDT [facility] ACANTHOCYTES 1+ 06/02/2025 8:02 AM EDT [facility] OVALOCYTES 1+ 06/02/2025 8:02 AM EDT [facility] SCHISTOCYTES 1+ 06/02/2025 8:02 AM EDT [facility] SPHEROCYTES 1+ 06/02/2025 8:02 AM EDT [facility] TEAR DROP CELLS 1+ 8:02 AM EDT [facility] Total Cells Counted 100 06/02/2025 8:02 AM EDT [facility] Blood PERIPHERAL BLOOD SPECIMEN / Unknown Venipuncture / Unknown 06/02/2025 5:41 AM EDT 06/02/2025 5:45 AM EDT us Rabia Velasco MD LAB BLOOD ORDERABLES Final Resul t [facility] [address] [place] [address], [place] * XR Abdomen Portable (05/29/2025 11:22 AM EDT) Only the most recent of3 [...] Est Normal Normal 05/29/2025 8:13 AM EDT [facility] ANISOCYTOSIS 1+ 05/29/2025 8:13 AM EDT [facility] Microcytosis 1+ 05/29/2025 8:13 AM EDT [facility] POLYCHROMASIA 1+ 05/29/2025 8:13 AM EDT [facility] Poikilocytosis 1+ 05/29/2025 8:13 AM EDT [facility] OVALOCYTES 1+ 05/29/2025 8:13 AM EDT [facility] SPHEROCYTES 1+ 05/29/2025 8:13 AM EDT [facility] TEAR DROP CELLS 1+ 8:13 AM EDT [facility] ACANTHOCYTES 1+ 05/29/2025 8:13 AM EDT [facility] Blood PERIPHERAL BLOOD SPECIMEN / Unknown Venipuncture / Unknown 05/29/2025 6:20 AM EDT 05/29/2025 6:29 AM EDT us Rabia Velasco MD LAB BLOOD ORDERABLES Final Resul t [facility] [address] [place] [address], [place] * (ABNORMAL) C-Reactive Protein (05/28/2025 5:53 AM EDT) C-Reactive Protein (CRP) >300.0(H) 0.0 - 5.0 mg/L 05/28/2025 12:39 PM EDT [facility] Blood PERIPHERAL BLOOD SPECIMEN / Unknown Venipuncture / Unknown 05/28/2025 5:53 AM EDT 05/28/2025 6:01 AM EDT us Rabia Velasco MD LAB BLOOD ORDERABLES Final Resul t Performing Organization Address City/[facility]/ZIP Co de Phone Number [facility] [address] [place] [address], [place] * CT Angiogram Chest PE : [...] - 2.0 mmol/L 2025 8:34 PM EDT [facility] Blood PERIPHERAL BLOOD SPECIMEN / Unknown Venipuncture / Unknown 2025 8:28 PM EDT 2025 8:31 PM EDT us Rabia Velasco MD LAB BLOOD ORDERABLES Final Resul t [facility] [address] [place] [address], [place] * (ABNORMAL) Blood Gas, Venous (2025 8:28 PM EDT) pH, Venous 7.47(H) 7.35 - 7.45 2025 8:35 PM EDT [facility] pCO2, Venous 41 35 - 45 mmHg 2025 8:35 PM EDT [facility] pO2, Venous 82 80 - 105 mmHg 2025 8:35 PM EDT [facility] HCO3, Venous 30 21 - 30 mmol/L 2025 8:35 PM EDT [facility] Carboxyhemoglo bin, VBG 1.6(H) 0.5 - 1.5 % 2025 8:35 PM EDT [facility] Methemoglobin, VBG 1.0(H) 0.2 - 0.6 % 2025 8:35 PM EDT [facility] Blood Venipuncture / Unknown 2025 8:28 PM EDT 2025 8:31 PM EDT us Rabia Velasco MD LAB BLOOD ORDERABLES Final Resul t [facility] [address] [place] [address], [place] * (ABNORMAL) Comprehensive Metabolic Panel (2025 8:23 PM EDT) Sodium 145 135 - 147 mmol/L 2025 9:04 PM EDT [facility] Potassium 4.0 3.5 - 5.4 mmol/L 2025 9:04 PM EDT [facility] Chloride 106 96 - 108 mmol/L 2025 9:04 PM EDT [facility] Total CO2/Bicarbonate 27 22 - 32 mmol/L 2025 9:04 PM EDT [facility] Anion Gap 12 10 - 18 mmol/L 2025 9:04 PM EDT [facility] BUN 36(H) 6 - 20 mg/dL 2025 9:04 PM EDT [facility] Creatinine, Blood 0.90 0.50 - 1.20 mg/dL 2025 9:04 PM EDT [facility] Glucose, Blood 168(H) 70 - 100 mg/dL 2025 9:04 PM EDT [facility] Calcium 9.1 8.4 - 10.3 mg/dL 2025 9:04 PM EDT [facility] Total Protein 6.5 6.4 - 8.3 g/dL 2025 9:04 PM EDT [facility] Albumin, Blood 2.9(L) 3.5 - 5.2 g/dL 2025 9:04 PM EDT [facility] Globulin Result 3.6 2.0 - 4.0 g/dL 2025 9:04 PM EDT [facility] AST (SGOT) 15 0 - 40 U/L 2025 9:04 PM EDT [facility] ALT (SGPT) 8 0 - 40 U/L 2025 9:04 PM EDT [facility] Alkaline Phosphatase 125 40 - 130 U/L 2025 9:04 PM EDT [facility] Total Bilirubin 0.2 0.0 - 1.5 mg/dL 2025 9:04 PM EDT [facility] Blood PERIPHERAL BLOOD SPECIMEN / Unknown Venipuncture / Unknown 2025 8:23 PM EDT 2025 8:27 PM EDT us Rabia Velasco MD LAB BLOOD ORDERABLES Final Resul t [facility] [address] [place] [address], [place] * Culture, Respiratory (Incl Gram) (2025 5:55 PM EDT) Respiratory Culture Heavy growth commensal respiratory nica STEPHEN 05/31/2025 2:23 PM EDT [facility] Smear,Gram Stain >25 PMNs and <10 epithelial cells/100X field 05/31/2025 2:23 PM EDT [facility] Smear,Gram Stain 4+ Multiple Organisms Present Consistent with Oropharyngeal Nica 05/31/2025 2:23 PM EDT [facility] [facility] Respiratory SPUTUM SPECIMEN OBTAINED BY SPUTUM INDUCTION / Unknown Collection / Unknown 2025 5:55 PM EDT 2025 6:16 PM EDT us Rabia Velasco MD MICROBIOLOGY - GENERAL ORDERABLE S Final Result [facility] [address] [place] [address], [place] * Nasal MRSA/SA By PCR (2025 3:35 PM EDT) MRSA PCR Negative Negative 05/28/2025 10:52 AM EDT [facility] S. aureus PCR Negative Negative 05/28/2025 10:52 AM EDT [facility] Swab BOTH ANTERIOR NARES / Unknown 2025 3:35 PM EDT 2025 4:00 PM EDT Narrative [facility] - 05/28/2025 10:52 AM EDT Test performed by GeneXpert real-time PCR. us Rabia Velasco MD MICROBIOLOGY - GENERAL ORDERABLE S Final Result [facility] [address] [place] [address], [place] * XR Chest 1 VW Portable (2025 11:34 AM EDT) Only the most recent of4 [...] Reflex Hold Received 05/25/2025 8:01 AM EDT [facility] AP Urine MID-STREAM URINE SPECIMEN / Unknown Collection / Unknown 05/25/2025 5:11 AM EDT 05/25/2025 5:15 AM EDT us Rabia Velasco MD URINE ORDERABLES Final Result [facility] AP [address] [place] [id number], [place] * (ABNORMAL) Urinalysis with Reflex to Urine Culture (05/25/2025 5:11 AM EDT) Color, Urine Yellow Yellow, Colorless, Straw 05/25/2025 5:41 AM EDT [facility] Clarity, Urine Clear Clear 05/25/2025 5:41 AM EDT [facility] pH, Urine 7.5 5.0 - 8.0 05/25/2025 5:41 AM EDT [facility] Protein, Urine 50 mg/dL(A) Negative 05/25/2025 5:41 AM EDT [facility] Glucose, Urine Negative Negative 05/25/2025 5:41 AM EDT [facility] Ketone, Urine Negative Negative 05/25/2025 5:41 AM EDT [facility] Bilirubin, Urine Negative Negative 05/25/2025 5:41 AM EDT [facility] Urobilinogen, Urine Normal 0.2-1.0 mg/dL 05/25/2025 5:41 AM EDT [facility] Blood, Urine Negative Negative 05/25/2025 5:41 AM EDT [facility] Leukocyte Esterase, Urine Negative Negative 05/25/2025 5:41 AM EDT [facility] Nitrite, Urine Negative Negative 05/25/2025 5:41 AM EDT [facility] Specific [place], Urine 1.029 1.001 - 1.050 05/25/2025 5:41 AM EDT [facility] White Blood Cells, Urine <1 0 - 5 /hpf 05/25/2025 5:41 AM EDT [facility] Red Blood Cells, Urine 2 0 - 2 /hpf 05/25/2025 5:41 AM EDT [facility] Urine MID-STREAM URINE SPECIMEN / Unknown Collection / Unknown 05/25/2025 5:11 AM EDT 05/25/2025 5:15 AM EDT us Rabia Velasco MD URINE ORDERABLES Final Result [facility] [address] [place] [address], * Culture, Blood (05/24/2025 6:58 PM EDT) Culture No growth after 5 days STEPHEN 05/29/2025 9:02 PM EDT [facility] Blood PERIPHERAL BLOOD SPECIMEN / Unknown Venipuncture / Unknown 05/24/2025 6:58 PM EDT 05/24/2025 7:02 PM EDT us Rabia Velasco MD MICROBIOLOGY - GENERAL ORDERABLE S Final Result [facility] [address] [place] [address], * (ABNORMAL) Coronavirus SARS-CoV-2, Influenza A/B and RSV (05/24/2025 10:28 AM EDT) Coronavirus SARS-CoV-2 Positive(A) Negative 05/24/2025 11:10 AM EDT [facility] Influenza A Negative Not Detected by PCR 05/24/2025 11:10 AM EDT [facility] Influenza B Negative Not Detected by PCR 05/24/2025 11:10 AM EDT [facility] RSV by PCR Negative Not Detected by PCR 05/24/2025 11:10 AM EDT [facility] Respiratory SWAB OF INTERNAL NOSE / Unknown Collection / Unknown 05/24/2025 10:28 AM EDT 05/24/2025 10:29 AM EDT Narrative [facility] - 05/24/2025 11:10 AM EDT Test performed by GeneXpert real-time PCR. us Rabia Velasco MD BODY FLUIDS AND STOOLS ORDERABLE S Final Result [facility] [address] [place] [address], [place] * IR G Tube Rescue (05/12/2025 5:00 PM EDT) Anatomical Region Laterality Modality X-Ray Angiograph y 05/14/2025 12:2 4 PM EDT Impressions 05/14/2025 12:22 PM EDT Technically successful gastrostomy tube rescue with placement of a new 16 Pakistani (3 cm stoma length) gastrostomy tube. Recommend [...] draped in a sterile fashion. A 12 Pakistani Maharaj was identified in the gastrostomy tract. The balloon of the Maharaj was deflated. A stiff Glidewire was advanced through the Maharaj catheter into the stomach. The Maharaj was removed with gentle traction. A 16 Pakistani low- profile 3 cm stoma gastrostomy tube was advanced over the stiff Glidewire and into the stomach. The balloon was inflated with sterile water. The gastrostomy tube was aspirated revealing gastric contents. The gastrostomy tube was then flushed sterile water. Sterile dressings were applied. Patient tolerated the procedure well. No immediate postprocedural complications. FINDINGS: Existing gastrostomy tract with 12 Pakistani Maharaj. Placement of new 16 Pakistani 3 cm low-profile gastrostomy tube with aspiration of gastric contents confirming appropriate position. Recommend confirmation with injection of contrast and radiograph. Procedure Note Cassandra Fernandez MD - 05/14/2025 INDICATION: G tube rescue; Additional information: 69-year-old male with recurrent aspirationoropharyngeal dysphagia maintained with [facility]. [facility]ISON: None available. TECHNIQUE: OPERATORS: Dr. [...] draped in a sterile fashion. A 12 Pakistani Maharaj was identifiedin the gastrostomy tract. The balloon of the Maharaj was deflated. A stiff Glidewire was advanced through the Foleycatheter into the stomach. The Maharaj was removed with gentle traction. A16 Pakistani low-profile 3 cm stoma gastrostomy tube was advanced over thestiff Glidewire and into the stomach. The balloon was inflated with sterile water. The gastrostomy tubewas aspirated revealing gastric contents. The gastrostomy tube was thenflushed sterile water. Sterile dressings were applied. Patient tolerated the procedure well. No immediate postproceduralcomplications. FINDINGS: Existing gastrostomy tract with 12 Pakistani Maharaj. Placement of new 16 Pakistani 3 cm low-profile gastrostomy tube withaspiration of [...] SARS-CoV-2 Negative Negative 05/07/2025 6:15 PM EDT [facility] Influenza A, PCR Negative Negative 05/07/20 6:15 PM EDT [facility] Influenza B, PCR Negative Negative 05/07/20 6:15 PM EDT [facility] RSV by PCR Negative Negative 05/07/2025 6:15 PM EDT [facility] Respiratory SWAB OF INTERNAL NOSE / Unknown Collection / Unknown 05/07/2025 12:20 PM EDT 05/07/2025 12:33 PM EDT Narrative [facility] - 05/07/2025 6:15 PM EDT Test performed with Alinity m Resp-4-Plex PCR assay, which has received emergency use authorization (EUA) by the U.S.Food and Drug Administration. Test performance verified by [facility] [address] [place], [place] Dr. Dunia Adames MD. CLIA [id number], CAP [id number] . Mohinder Johnson MD BODY FLUIDS AND STOOLS ORDERAB LES Final Result [facility] [address] [place] [address], * (ABNORMAL) Lipid Panel (01/20/2023 8:26 AM EDT) Cholesterol 157 <=199 mg/dL 01/20/2023 1:09 PM EDT [facility] Triglycerides 164(H) <150 mg/dL 01/20/2023 1:09 PM EDT [facility] HDL Cholesterol 49 >=40 mg/dL 3 1:09 PM EDT [facility] Risk Factor 3.2 <5.0 01/20/2023 1:09 PM EDT [facility] LDL Cholesterol 75 <100 mg/dL 3 1:09 PM EDT [facility] Blood BLOOD / Unknown 01/20/2023 8 :26 AM EDT 01/20/2023 8:45 AM EDT Narrative CONVERSION FROM [facility] EPIC - 01/20/2023 1:09 PM EDT Release to patient->Immediate Chuck Bell MD LAB BLOOD ORDERABLES Final Result [facility]VERSION FROM [facility] [address] [place] [address] from Last 3 Months or Most Recently Relevant to Health Maintenance Insurance MEDICARE [employer] MEDICARE MEDEX Advance Directives Documents on File Type Date Recorded 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
--- OUTSIDE RECORDS SUMMARY | 2025-08-05 07:49 | XMS_ITS | Encounter Summary ---
Author Organization [facility] Address [address] [place] [address] Care Team Providers Care Stage Director Name Role Phone Malcolm Edmondson Primary Care Provider [phone] System, Provider Not In Primary Care Provider Un available Kalyan, Johanna Alonso Primary Care Provider Unavai lable Kalyan, Johanna Alonso Primary Care Provider Unavai lable Unknown, Provider Primary Care Provider Unava ilable None, Pcp Primary Care Provider Unavailabl e Kalyan, Johanna Allen MD Primary Care Provider [phone] None, Pcp Primary Care Provider Unavailabl e Skye De Leon MD Primary Care Provider [phone] Kilo Valera Jr. Primary Care Provid er Skye De Leon MD Primary Care Provider [phone] Encounter Details Date Type Department Care Team (Late st Contact Info) Description 11/29/2016 Orders Only [facility] [address] [facility] - [address] [place] [id number] Param Rhodes MD [address] [place] [address] Schizoaffective disorder, bipolar type (Primary Dx) Social [...] Visit Diagnoses Diagnosis Schizoaffective disorder, bipolar type ([facility] Primary Schizoaffective disorder, unspecified condition documented in [...] documented as of this encounter Care Teams Stage Director Relationship Specialty Start Date End Date Malcolm Edmondson PCP - General 08/31/14 12/31/19 System, Provider Not In PCP - General 01/01/20 04/13/20 Johanna Biggs [address] [place] [address] [place] [address] PCP - General 04/14/20 10/27/20 Johanna Biggs [address] [place] [address] [place] [address] PCP - General 10/28/20 01/03/21 Unknown, Provider, [address] [place] [id number] PCP - General 01/04/21 03/10/21 None, Pcp, [address] [place] [address] PCP - General 03/11/21 11/22/21 Johanna Biggs MD [address] [place] [address] PCP - General Family Practice 11/23/21 05/29/22 None, PcpMD [address] [place] [address] PCP - General 05/30/22 05/31/22 Skye De Leon MD [address] [place] [address] PCP - General Internal Medicine 06/01/22 11/08/22 Kilo Valera Jr. [address] [place] [id number] PCP - General 11/09/22 12/17/22 Skye De Leon MD [address] [place] [address] PCP - General Internal Medicine 12/18/22 documented as of this encounter
--- OUTSIDE RECORDS SUMMARY | 2025-08-05 07:49 | XMS_ITS | Clinical Summary ---
Author Organization [employer] Address [address] [place] [address] [address] Care Team Providers Care Apiarist Name Role Phone Poc, Non Atrius Pcp [...] COMPLETE EYE EXAM (65+YRS) 2022 COVID-19 Vaccine (1 - 2024-2 6 season) 2025 FLU SEASONAL (#1) 06/22/2025 HAEMOPHILUS [...] age to complete this topic RSV Vaccine //toddler Aged Out No longer eligible based on [...] Recently Relevant to Health Maintenance Care Teams Apiarist Relationship Specialty Start Date End Date Poc, Non Atrius Pcp Or PCP - General 07/01/01
--- NOTE | 2025-08-05 08:43 | P.HPCC_ITS ---
History of Present Illness Date of Service: 08/05/25 Chief Complaint: Hypoxia 70-year-old gentleman with underlying schizoaffective disorder, CKD, last 1 dementia, recurrent aspirations now status post PEG, sleep apnea, CKD presented on 08/05/2025 from residential facility with an aspiration event and hypoxia. Patient initially on high-flow nasal cannula, now titrated down to OxyMask. He was started on empiric antibiotics for pulmonary aspiration and admitted to the intensive care unit. 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 Comment: 1:1 sitter Patient Tobacco Use Status: Never used Tobacco Smoked in Last 30 Days: No e-Cigarette/Vaping Use: Never Used Second Hand Smoke Exposure: No Use of substances other than those prescribed or required for medical reasons: No Advance Directives: Yes Advance Directives on File: Yes Advance Directives Date on File: 06/26/25 service: No Sexual orientation: Straight/Heterosexual Meds Allergies Allergy/AdvReac Type Severity Reaction Status Date / Time morphine Allergy Itching Verified 08/05/25 04:33 Active Medications: Current Medications Heparin Sodium (Porcine) (Heparin Sodium,Porcine 5,000 Unit/Ml Vial) 5,000 unit SUBCUT Q8H CLAUDIA Physical Exam 2 Vital Signs: Vital Signs: Last Vital Signs Temp 101.5 F H 08/05/25 07:04 Pulse 110 H 08/05/25 08:34 Resp 24 H 08/05/25 08:36 BP 104/53 L 08/05/25 08:34 Pulse Ox 93 08/05/25 08:34 O2 Del Method Oxymask 08/05/25 08:34 O2 Flow Rate 10 08/05/25 08:34 FiO2 100 08/05/25 04:29 BMI result Body Mass Index 24.1 Const: General: no acute distress and lethargic Orientation/consciousness: lethargic Eyes: Sclerae: sclerae normal EOM: EOMs intact bilaterally Neck: Neck: Yes no lymphadenopathy, Yes trachea midline and Yes supple Resp: Effort & Inspection: tachypneic Auscultation: crackles (Mild bibasilar) Cardio: Rate: regular rate Rhythm: regular rhythm Heart sounds: no gallops, no murmurs and no rubs GI: Palpation (GI): Soft to palpation and Other GI palpation findings present ( Nontender) Auscultation: normal bowel sounds Extrem: General: Yes no pedal edema, No clubbing and No cyanosis Results Labs 08/05/25 04:16 08/05/25 05:09 Labs: Laboratory Results - last 24 hr 08/05/25 08/05/25 08/05/25 04:16 04:20 05:09 MCV 96.0 D MCH 31.6 MCHC 32.9 RDW 16.4 H Plt Count 301 D MPV 11.2 Immature Gran % (Auto) 0.8 H Neut % (Auto) 89.0 H Lymph % (Auto) 3.9 L [place] % (Auto) 6.1 Eos % (Auto) 0.0 Baso % (Auto) 0.2 Lymph # (Auto) 1.1 L [place] # (Auto) 1.6 H Eos # (Auto) 0.0 Baso # (Auto) 0.1 Abs Immat Gran (auto) 0.20 H Absolute Neuts (auto) 23.7 H Absolute Nucleated RBC 0.000 Nucleated RBC % (auto) 0.0 Smear Tech's Comments VERIFIED VBG pH 7.45 H VBG pCO2 44 VBG pO2 38 VBG HCO3 31 H VBG O2 Saturation 50.0 VBG Base Excess 6.5 Anion Gap 17 Estim Creat Clear Calc 72.1 Estimated GFR > 60 Random Glucose 129 H Lactic Acid 3.8 H* Lactic Acid F/U @ 2Hr Calcium 9.0 Total Bilirubin 0.7 AST 18 ALT 7 Alkaline Phosphatase 111 Troponin I High Sens 17.4 NT-Pro-B Natriuret Pep 338.0 H Total Protein 6.5 Albumin 3.5 Influenza Type A (PCR) Influenza Type B (PCR) RSV RNA Qual (PCR) SARS-CoV-2 RNA (RT-PCR) 08/05/25 08/05/25 05:10 07:03 MCV MCH MCHC RDW Plt Count MPV Immature Gran % (Auto) Neut % (Auto) Lymph % (Auto) Cam[place] % (Auto) Eos % (Auto) Baso % (Auto) Lymph # (Auto) Camden # (Auto) Eos # (Auto) Baso # (Auto) Abs Immat Gran (auto) Absolute Neuts (auto) Absolute Nucleated RBC Nucleated RBC % (auto) Smear Tech's Comments VBG pH VBG pCO2 VBG pO2 VBG HCO3 VBG O2 Saturation VBG Base Excess Anion Gap Estim Creat Clear Calc Estimated GFR Random Glucose Lactic Acid Lactic Acid F/U @ 2Hr 3.7 H* Calcium Total Bilirubin AST ALT Alkaline Phosphatase Troponin I High Sens NT-Pro-B Natriuret Pep Total Protein Albumin Influenza Type A (PCR) NEGATIVE Influenza Type B (PCR) NEGATIVE RSV RNA Qual (PCR) NEGATIVE SARS-CoV-2 RNA (RT-PCR) NEGATIVE Assessment and Plan (1) Schizophrenia: Qualifiers: Schizophrenia type: unspecified Qualified Code(s): F20.9 - Schizophrenia, unspecified Status: Acute (2) Chronic pulmonary aspiration: Status: Acute (3) Acute hypoxic respiratory failure: Status: Acute Plan Assessment: 70-year-old gentleman with schizophrenia and recurrent pulmonary aspiration status post PEG admitted with another pulmonary aspiration and hypoxia Plan: Neuro: No acute issues. Cardiac: No acute issues. Pulmonary: Acute hypoxic respiratory failure secondary to pulmonary aspiration, initially on high-flow nasal cannula, now on OxyMask, continue to titrate off as tolerated. Remains at concentrate his cough repeat aspiration. Renal: No acute issues. Endo: No acute issues. GI: No acute issues. ID: Empiric coverage for pulmonary aspiration. Heme/Onc: No acute issues. Psych: Underlying schizoaffective disorder, psychiatric medications held at this time secondary to altered mental status. Miscellaneous: No acute issues. Prophylaxis: Heparin Diet: NPO Critical care time spent: 60 minutes
--- NOTE | 2025-08-05 09:05 | PC.NURSE ---
took over for pt at 0700. at this point temp obtained 101.5 - MD notified and tylenol IV given. Pt on high flow at that time. at points very restless with poor waveform for SPo2. about 92% when good pleth obtained with better pt position. RT at bedside to assess pt - suctioned multiple times. Pt sounds very wet/junky. weight based bolus infusing after conversation with MD to start fluid bolus that was held earlier. stage 1 pressure injury on buttocks. at 0820 switched over to oxymask 10L per fast food manager. about 40 minutes later O2 is 83% - pt sleeping. RT called and pt placed back on high flow.
[2025-08-05 09:09] LABS: Reflex Lactate? 2 Y
--- NOTE | 2025-08-05 10:01 | PHA.MEDREC ---
Pharmacy Consult ? Medication Reconciliation Pharmacy has completed the medication reconciliation. Utilized list from last admission on 07/31/25, per RN patient is unable to answer questions but comes from a SNF and should have taken his Clozapine yesterday on 08/04
[2025-08-05 10:33] LABS: ~Lactic Acid-LAB USE ONLY 2.9 mmol/L (0.5-2.0)
--- NOTE | 2025-08-05 11:32 | HE.ICUCC ---
Admission to ICU from ER at approx 1015. Patient drowsy, arousable, oriented x3 - vague at times. Denies SI/HI. Patient put on high flow NC - 55 liters, 80%. Patient tolerating, moist cough - Yankauer suctioning mouth. Patient weak, but H[place]. BP trending to be low 90's systolic at times - Dr Florence aware of BP and critical labs (lactic). Temp improved after receiving tylenol in ED. RR non labored, tolerating repositioning. Foam dressings applied to bilat heels and coccyx area. Stage 2 noted on left coccyx. Heels and ankle blanchable, pink, but boggy. Wound RN & nutrtion consulted. Left upper quadrant PEG tube in place. Patient kept NPO at this time for aspiration precautions.
--- NOTE | 2025-08-05 12:46 | HO.WOUND ---
Wound Consult: Initial 70 yr old male admitted to [facility] 08[facility]05[facility] - See progress notes and H&P for detailed history. Wound consult placed for buttocks. Patient agreeable to assessment and photo documentation. Coccyx/buttocks Etiology: coccyx stage 2 pressure injury Present on Admission , superinposed on chronic MASD intact pink/purple blanching and denuded skin Measurements: 0.4cm x 0.4cm x 0.1cm Wound Bed: moist pink/red Drainage / Odor: none Edges: ? open Lakesha wound: ? No Induration, Fluctuance or Warmth noted - intact reddened/purple blanchable skin in the setting of chronic moisture/friction Pain: yes Goals of Treatment: ? offloading, moisture management Left lateral ankle intact red and blanching Right lateral ankle Etiology: stage 1 pressure injury Present on Admission Measurements: 0.8cm x 0.8cm x 0cm Wound Bed: intact red nonblanching Drainage / Odor: none Lakesha wound: ? No Induration, Fluctuance or Warmth noted Goals of Treatment: ? offloading bilateral heels intact, pink, blanching Recommendations: 1. Turn and Reposition every 2 hours and as needed for patient comfort. Use pillows or wedges to support off loading positions. 2. Off Load all bony prominences with use of pillows and heel boots if needed. Apply Preventative foams where needed. 3. Monitor for incontinence and moisture control, use barrier creams when needed for prevention and treatment. 4. Provide adequate and supplemental nutrition. 5. Order or Continue low air loss mattress. 6. When applicable maintain blood glucose levels per Providers order. Re-consult wound care Nurse for wound deterioration or wound changes. Bilateral heels and ankles: Elevate heels off of bed surface with pillows. Float heels off of pillows. Apply skin prep allow to dry. Apply heel foam dressings, peel back and assess Q shift and change every 5-7 days and PRN Coccyx/buttock: Off Load Pressure with Q2 hr turns and use of pillows - Cleanse with PH balance spray or wipes, pat dry. ?Apply thin layer of Triad to wound bed. Do not remove all of paste between applications as this may cause further skin damage.? Cover with foam dressing to aid in off loading and protection from friction. Change every 3 days and PRN.
--- NOTE | 2025-08-05 14:19 | MHC.CM.PN ---
IMM GIVEN 08/05. PT IS FROM [facility], HE WAS THERE FOR STR, AND WILL RETURN VIA BLS ONCE MEDICALLY CLEARED. HCP ON FILE AND VERIFIED. PCP: DR. TAQUERIA COTTRELL
--- NOTE | 2025-08-05 18:55 | PM.EVENT ---
Event Note Date of Service: 08/06/25 Event Note: Patient downgraded by ICU this afternoon Admitted for hypoxia/aspiration: Hypoxia somewhat improving, more conversive Denies any new complaint Rest of physical/assessment and plan as per ICU note. Time Spent With Patient Time: Total time managing care of this patient today ____ minutes.
[2025-08-06 03:20] VITALS: BP 133/75; PULSE 90; RESP 18; TEMP 36.4; O2SAT 97
[2025-08-06 06:33] LABS: MANUAL DIFF FLAG NO
[2025-08-06 06:39] LABS: Hematocrit 32.1 % (42.0-52.0); Hemoglobin 10.4 g/dl (14.0-18.0); Imm Gran Abs Auto 0.05 X10*3/uL (0.00-0.03); Imm Gran Pct Auto 0.5 % (0.0-0.4); Lymphocytes Absolute Auto 0.4 X10*3/uL (1.2-4.9); Mean Corpuscular HGB Conc 32.4 g/dl (31.0-36.0); Mean Corpuscular Hemoglobin 31.1 pg (27.0-33.0); Mean Corpuscular Volume 96.1 fL (80.0-98.0); NRBC Abs Auto 0.000 X10*3/uL (0.0-0.012); NRBC Pct Auto 0.0 /100WBC (0.0-0.2); Platelet Count 201 X10*3/uL (160-400); Red Blood Count 3.34 X10*6/uL (4.60-5.80); White Blood Count 9.5 X10*3/uL (4.8-10.8)
[2025-08-06 06:42] LABS: VBG HCO3 32 mmol/L (22-26); VBG O2 % Saturation 47.0 %
[2025-08-06 06:44] LABS: Venous Blood Gas Refer to POC result
[2025-08-06 06:55] LABS: Albumin Level 3.0 g/dL (3.5-5.0); Anion Gap 12 (12-20); Blood Urea Nitrogen 34 mg/dL (9-16); Calcium 9.6 mg/dL (8.4-10.2); Carbon Dioxide 29 mmol/L (22-29); Chloride 114 mmol/L (96-108); Creatinine Clr Calc Pharmacy 82.8; Estimated Glomerular Filt Rate > 60; Magnesium 2.1 mg/dL (1.6-2.6); Potassium 4.1 mmol/L (3.3-5.1); Sodium 151 mmol/L (135-145)
[2025-08-06 07:50] VITALS: BP 135/69; PULSE 89; RESP 20; TEMP 36.1; O2SAT 97
[2025-08-06] MEDS: Lidocaine 4 % Patch ADH..PATCH 1 PATCH TRANSDERMA (09:51)
[2025-08-06] MEDS: Valproic Acid Liquid 250 MG/5 ML SOLUTION 1000 MG G-TUBE ×2 (10:34→18:03)
[2025-08-06 11:35] VITALS: BMI 22.9
--- NOTE | 2025-08-06 11:42 | MHC.CLN ---
CONSULT FAMILIAR WITH PT FROM RECENT ADMISSION PT WITH PEG TUBE FOR NUTRITION PT NEEDS TO BE STRICT NPO AND 100% NUTRITION FROM PEG TUBE. PT WITH HX OF BEGGING FOR FOOD, STATES HE IS STARVING WITH CHRONIC ASPIRATION IN ADDITION, PT WITH INCREASED NUTRITION RISK R/T PRESSURE INJURY REVIEWED LABS DISCUSSED WITH PROVIDER RECOMMEND TF RE-START OSMOLITE 1.5 AT MAX GOAL RATE 70ML/HR WITH 300ML FREE WATER FLUSHES Q 6 HRS TO PROVIDE 2520KCALS (31KCALS/KG), 105G PROTEIN (1.3G/KG), 2480 ML TOTAL WATER FROM FORMULA AND FLUSHES (31ML/KG) START TF OSMOLITE 1.5 AT 20ML/HR AND INCREASE RATE BY 10ML Q 4 HRS UNTIL MAX GOAL OF 70ML/HR IS ACHIEVED MONITOR TOLERANCE AND LYTES TF WILL PROMOTE WOUND HEALING
[2025-08-06 12:00] VITALS: BP 129/63; PULSE 83; RESP 20; TEMP 36.6; O2SAT 92
--- NOTE | 2025-08-06 14:18 | MHC.CM.PN ---
THIS CM MET WITH PATIENT PER HIS REQUEST, HE STATES THAT HE DOESN'T WANT TO RETURN TO [facility]. PATIENT STATES HE WOULD LIKE TO GO TO A DIFFERENT FACILITY [place]AR [place]. PT WILL NEED A NEW PT STACIE HOSPITALIST UPDATED.
--- NOTE | 2025-08-06 15:13 | P.PNIM_ITS ---
Subjective Subjective Date of Service: 08/06/25 Interval History: Acute respiratory failure:Secondary to aspiration pneumonia Review of Systems sob seems somewhat improving, Still require oxygen Review of Systems: Yes all other systems are reviewed and are negative Physical Exam 2 Exam: Exam: Appearance: More awake and alert, generalized weak? cvs: [id number], [id number] . res: air entry fair ,has diminshed at bases ,few scattered cracles at bases. abd: no rebound or guarding ,nt, bs present. ext pulses present , no cyanosis . neuro: nonfocal. Vital Signs: Vital Signs: Last Vital Signs Temp 97.9 F 08/06/25 12:00 Pulse 83 08/06/25 12:00 Resp 20 08/06/25 12:00 BP 129/63 08/06/25 12:00 Pulse Ox 92 08/06/25 12:00 O2 Del Method Room Air 08/06/25 07:50 O2 Flow Rate 7 08/06/25 03:20 FiO2 80 08/05/25 11:08 BMI result Body Mass Index 22.9 Objective Data Active Medications Acetaminophen (Acetaminophen 325 Mg Tablet) 975 mg G-TUBE TID [facility] Last Admin: 08/06/25 14:53 Dose: 975 mg Documented By: LATESHA Albuterol/Ipratropium (Albuterol/Iprat 2.5/0.5mg 3 Ml Ampul.Neb) 3 ml INHALE Q6H PRN PRN Reason: Shortness of Breath Atorvastatin Calcium (Atorvastatin Calcium 40 Mg Tablet) 40 mg G-TUBE BEDTIME [facility] Bisacodyl (Bisacodyl 10 Mg Supp.Rect) 10 mg UT DAILY PRN PRN Reason: Constipation Calcium Carbonate (Calcium Carbonate 750 Mg Tab.Chew) 750 mg G-TUBE TID PRN PRN Reason: Heartburn Capsaicin (Capsaicin 0.025% Cream 60 Gm Tube) 1 appl TOPICAL TID PRN; Protocol PRN Reason: Pain, Moderate(Pain Scale 4-6) Clozapine (Clozapine 25 Mg Tablet) 50 mg G-TUBE DAILY@1100 [facility] Last Admin: 08/06/25 10:32 Dose: 50 mg Documented By: DARRYLDIIDA Clozapine (Clozapine 100 Mg Tablet) 200 mg G-TUBE DAILY@1700 [facility] Doxazosin Mesylate (Doxazosin Mesylate 1 Mg Tablet) 1 mg PO BEDTIME [facility]; Protocol Famotidine (Famotidine 20 Mg Tablet) 20 mg G-TUBE BID [facility] Last Admin: 08/06/25 09:50 Dose: 20 mg Documented By: KRISTIN.FIGDIAN Gabapentin (Gabapentin 100 Mg Capsule) 100 mg G-TUBE DAILY [facility] Last Admin: 08/06/25 09:50 Dose: 100 mg Documented By: KRISTIN.FIGDIAN Gabapentin (Gabapentin 300 Mg Capsule) 300 mg G-TUBE BEDTIME [facility] Haloperidol (Haloperidol 1 Mg Tablet) 1 mg G-TUBE DAILY [facility] Last Admin: 08/06/25 09:51 Dose: 1 mg Documented By: KRISTIN.FIGDIAN Haloperidol (Haloperidol 1 Mg Tablet) 2 mg G-TUBE BID PRN PRN Reason: Agitation Haloperidol (Haloperidol 1 Mg Tablet) 3 mg G-TUBE BEDTIME [facility] Heparin Sodium (Porcine) (Heparin Sodium,Porcine 5,000 Unit/Ml Vial) 5,000 unit SUBCUT Q8H [facility] Last Admin: 08/06/25 14:53 Dose: 5,000 unit Documented By: FIGDIAN Levofloxacin (Levaquin) 750 mg in 150 mls @ 100 mls/hr IV Q24H [facility] Last Infusion: 08/06/25 12:32 Dose: Infused Documented By: FIGDIAN Lidocaine (Lidocaine 4 % Patch Adh..Patch) 1 patch TRANSDERMA DAILY [facility]; Protocol Last Admin: 08/06/25 09:51 Dose: 1 patch Documented By: KRISTIN.FIGDIAN Simethicone (Simethicone 80 Mg Tab.Chew) 80 mg G-TUBE Q6H PRN PRN Reason: Dyspepsia Trazodone HCl (Trazodone Hcl 50 Mg Tablet) 150 mg G-TUBE BEDTIME [facility] Valproic Acid (Valproic Acid Liquid 250 Mg/5 Ml Solution) 1,000 mg G-TUBE BID@1100,1700 [facility] Last Admin: 08/06/25 10:34 Dose: 1,000 mg Documented By: FIGDIAN Labs 08/06/25 06:25 08/06/25 06:26 Labs: Laboratory Results - last 24 hr 08/06/25 08/06/25 08/06/25 06:25 06:26 06:36 MCV 96.1 MCH 31.1 MCHC 32.4 RDW 16.2 H Plt Count 201 D MPV 11.1 Immature Gran % (Auto) 0.5 H Neut % (Auto) 87.2 H Lymph % (Auto) 4.3 L [place] % (Auto) 7.7 Eos % (Auto) 0.0 Baso % (Auto) 0.3 Lymph # (Auto) 0.4 L [place] # (Auto) 0.7 Eos # (Auto) 0.0 Baso # (Auto) 0.0 Abs Immat Gran (auto) 0.05 H Absolute Neuts (auto) 8.3 Absolute Nucleated RBC 0.000 Nucleated RBC % (auto) 0.0 VBG pH 7.43 VBG pCO2 48 VBG pO2 36 VBG HCO3 32 H VBG O2 Saturation 47.0 VBG Base Excess 7.4 Anion Gap 12 Estim Creat Clear Calc 82.8 Estimated GFR > 60 Random Glucose 80 Calcium 9.6 D Phosphorus 2.9 Magnesium 2.1 Albumin 3.0 L Microbiology Microbiology Results: Microbiology 08/05/25 05:09 Blood Culture - Preliminary Blood - Venous No growth after 24 hours. 08/05/25 04:16 Blood Culture - Preliminary Blood - Venous No growth after 24 hours. Assessment and Plan (1) Acute hypoxic respiratory failure: Status: Acute (2) Acute respiratory failure: Status: Acute Assessment and Plan: 70-year-old male with schizoaffective disorder on clozapine, with recent admisison from [facility] after an 8-week hospitalization for persistent suicidal ideation. During his stay, he aspirated after a small comfort feed, requiring brief ICU care with pressors-patient was treated for aspiration pneumonia and recommended-He has a longstanding history of dysphagia, with the most recent barium swallow in May 2025 confirming continued high risk for aspiration; tube feeding is recommended as the sole method of nutrition. [facility] again on 08[facility]05:[facility] and hypoxia. Patient initially on high-flow nasal cannula, now titrated down to OxyMask. He was started on empiric antibiotics for pulmonary aspiration and admitted to the intensive care unit(as per ED physician note:he drank water and had putting night before coming to ed). Acute hypoxemic respiratory failure secondary to Aspiration Pneumonia (post-ICU, now stable): Continue Levaquin, follow cultures, taper oxygen. Dysphagia with High Aspiration Risk: Longstanding dysphagia with repeated aspiration events, including recent episode despite improved barium swallow. Strict NPO except for G-tube feeds and medications, PEG was replaced by surgery 07/27 Continue tube feeding HOB elevated 30?45?. Schizoaffective Disorder/Depression: Managed on clozapine and current psychiatric regimen. Psychiatry available for consultation as needed. Obstructive Sleep Apnea (LOUANN): Diagnosed during recent hospitalization. Continue O2 and nebulizer treatments as needed. Use PRN CPAP. PT evaluation for placement. Ongoing need of stay: Acute hypoxemic respiratory failure secondary to aspiration event-continue IV antibiotics, taper oxygen, PT evaluation for further placement. Quality Stroke Does the patient have a stroke diagnosis?: No VTE Prior VTE?: No VTE Risk Level:: Medical - moderate - high VTE Device Contraindication: Treatment Not Indicated VTE Drug Contraindication: N/A - Med Ordered
[2025-08-06 15:29] VITALS: BP 119/71; PULSE 93; RESP 18; TEMP 36.8; O2SAT 92
[2025-08-06 19:18] VITALS: BP 106/58; PULSE 93; RESP 18; TEMP 36.6; O2SAT 93
[2025-08-06 23:26] VITALS: BP 137/64; PULSE 82; RESP 18; TEMP 36.6; O2SAT 93
[2025-08-07 03:12] VITALS: BP 119/74; PULSE 92; RESP 18; TEMP 36.4; O2SAT 92
[2025-08-07 07:25] VITALS: BP 164/79; PULSE 95; RESP 20; TEMP 36.4; O2SAT 96
--- NOTE | 2025-08-07 08:55 | P.PNIM_ITS ---
Subjective Subjective Date of Service: 08/07/25 Interval History: Acute respiratory failure:Secondary to aspiration pneumonia Review of Systems Review of Systems: Yes all other systems are reviewed and are negative Physical Exam 2 Exam: Exam: Appearance: More awake and alert, generalized weak? cvs: rrr, [id number] . res: air entry fair ,has diminshed at bases ,few scattered cracles at bases. abd: no rebound or guarding ,nt, bs present. ext pulses present , no cyanosis . neuro: nonfocal. Vital Signs: Vital Signs: Last Vital Signs Temp 97.5 F 08/07/25 07:25 Pulse 95 08/07/25 07:25 Resp 20 08/07/25 07:25 BP 164/79 H 08/07/25 07:25 Pulse Ox 96 08/07/25 07:25 O2 Del Method Room Air 08/07/25 07:25 O2 Flow Rate 7 08/06/25 03:20 FiO2 80 08/05/25 11:08 BMI result Body Mass Index 22.9 Objective Data Active Medications Acetaminophen (Acetaminophen 325 Mg Tablet) 975 mg G-TUBE TID [facility] Last Admin: 08/06/25 21:50 Dose: 975 mg Documented By: KASSANDRA Albuterol/Ipratropium (Albuterol/Iprat 2.5/0.5mg 3 Ml Ampul.Neb) 3 ml INHALE Q6H PRN PRN Reason: Shortness of Breath Atorvastatin Calcium (Atorvastatin Calcium 40 Mg Tablet) 40 mg G-TUBE BEDTIME [facility] Last Admin: 08/06/25 21:51 Dose: 40 mg Documented By: KASSANDRA Bisacodyl (Bisacodyl 10 Mg Supp.Rect) 10 mg [place] DAILY PRN PRN Reason: Constipation Calcium Carbonate (Calcium Carbonate 750 Mg Tab.Chew) 750 mg G-TUBE TID PRN PRN Reason: Heartburn Capsaicin (Capsaicin 0.025% Cream 60 Gm Tube) 1 appl TOPICAL TID PRN; Protocol PRN Reason: Pain, Moderate(Pain Scale 4-6) Clozapine (Clozapine 25 Mg Tablet) 50 mg G-TUBE DAILY@1100 [facility] Last Admin: 08/06/25 10:32 Dose: 50 mg Documented By: LATESHA Clozapine (Clozapine 100 Mg Tablet) 200 mg G-TUBE DAILY@1700 [facility] Last Admin: 08/06/25 18:02 Dose: 200 mg Documented By: LATESHA Doxazosin Mesylate (Doxazosin Mesylate 1 Mg Tablet) 1 mg PO BEDTIME [facility]; Protocol Last Admin: 08/06/25 21:51 Dose: 1 mg Documented By: KASSANDRA Famotidine (Famotidine 20 Mg Tablet) 20 mg G-TUBE BID [facility] Last Admin: 08/06/25 21:50 Dose: 20 mg Documented By: KASSANDRA Gabapentin (Gabapentin 100 Mg Capsule) 100 mg G-TUBE DAILY [facility] Last Admin: 08/06/25 09:50 Dose: 100 mg Documented By: LATESHA Gabapentin (Gabapentin 300 Mg Capsule) 300 mg G-TUBE BEDTIME [facility] Last Admin: 08/06/25 21:51 Dose: 300 mg Documented By: KASSANDRA Haloperidol (Haloperidol 1 Mg Tablet) 1 mg G-TUBE DAILY [facility] Last Admin: 08/06/25 09:51 Dose: 1 mg Documented By: LATESHA Haloperidol (Haloperidol 1 Mg Tablet) 2 mg G-TUBE BID PRN PRN Reason: Agitation Haloperidol (Haloperidol 1 Mg Tablet) 3 mg G-TUBE BEDTIME [facility] Last Admin: 08/06/25 21:51 Dose: 3 mg Documented By: KASSANDRA Heparin Sodium (Porcine) (Heparin Sodium,Porcine 5,000 Unit/Ml Vial) 5,000 unit SUBCUT Q8H [facility] Last Admin: 08/07/25 05:21 Dose: 5,000 unit Documented By: KASSANDRA Levofloxacin (Levaquin) 750 mg in 150 mls @ 100 mls/hr IV Q24H [facility] Last Infusion: 08/06/25 12:32 Dose: Infused Documented By: LATESHA Lidocaine (Lidocaine 4 % Patch Adh..Patch) 1 patch TRANSDERMA DAILY [facility]; Protocol Last Admin: 08/06/25 09:51 Dose: 1 patch Documented By: LATESHA Simethicone (Simethicone 80 Mg Tab.Chew) 80 mg G-TUBE Q6H PRN PRN Reason: Dyspepsia Trazodone HCl (Trazodone Hcl 50 Mg Tablet) 150 mg G-TUBE BEDTIME [facility] Last Admin: 08/06/25 21:51 Dose: 150 mg Documented By: KASSANDRA Valproic Acid (Valproic Acid Liquid 250 Mg/5 Ml Solution) 1,000 mg G-TUBE BID@1100,1700 [facility] Last Admin: 08/06/25 18:03 Dose: 1,000 mg Documented By: LATESHA Labs 08/06/25 06:25 08/06/25 06:26 Microbiology Microbiology Results: Microbiology 08/05/25 05:09 Blood Culture - Preliminary Blood - Venous No growth after 48 hours. 08/05/25 04:16 Blood Culture - Preliminary Blood - Venous No growth after 48 hours. Assessment and Plan (1) Acute hypoxic respiratory failure: Status: Acute (2) Acute respiratory failure: Status: Acute Assessment and Plan: 70-year-old male with schizoaffective disorder on clozapine, with recent admisison from [facility] after an 8-week hospitalization for persistent suicidal ideation. During his stay, he aspirated after a small comfort feed, requiring brief ICU care with pressors-patient was treated for aspiration pneumonia and recommended-He has a longstanding history of dysphagia, with the most recent barium swallow in May 2025 confirming continued high risk for aspiration; tube feeding is recommended as the sole method of nutrition. admitted again on 08/05:on 08/05/2025 from residential facility with an aspiration event and hypoxia. Patient initially on high-flow nasal cannula, now titrated down to OxyMask. He was started on empiric antibiotics for pulmonary aspiration and admitted to the intensive care unit(as per ED physician note:he drank water and had putting night before coming to ed). Acute hypoxemic respiratory failure secondary to Aspiration Pneumonia (post-ICU, now stable): Continue Levaquin, follow cultures, taper oxygen. Dysphagia with High Aspiration Risk: Longstanding dysphagia with repeated aspiration events, including recent episode despite improved barium swallow. Strict NPO except for G-tube feeds and medications, PEG was replaced by surgery 07/27 Continue tube feeding HOB elevated 30?45?. Schizoaffective Disorder/Depression: Managed on clozapine and current psychiatric regimen. Psychiatry available for consultation as needed. Obstructive Sleep Apnea (LOUANN): Diagnosed during recent hospitalization. Continue O2 and nebulizer treatments as needed. Use PRN CPAP. PT evaluation for placement. Ongoing need of stay: Acute hypoxemic respiratory failure secondary to aspiration event-continue IV antibiotics, taper oxygen, PT evaluation for further placement. Quality Stroke Does the patient have a stroke diagnosis?: No VTE Prior VTE?: No VTE Risk Level:: Medical - moderate - high VTE Device Contraindication: Treatment Not Indicated VTE Drug Contraindication: N/A - Med Ordered
--- NOTE | 2025-08-07 08:56 | P.CDIM_ITS ---
PROVIDER RESPONSE TEXT: To clarify, the appropriate diagnosis supported by the clinical indicators: Pressure Injury Stage 2 coccyx: pressure ulcer stage 2coccyx QUERY TEXT: PHYSICIAN'S DOCUMENTATION REQUEST Date of Query: 08/07/2025 05:33 AM EDT Patient Name: Carter Raymundo Admit Date: 08/05/2025 Dear Ap Escalante MD, A review of the medical record indicates additional documentation may be needed. Please review below and update the documentation accordingly. Clinical Indicators: Wound care consultation note dated 08/05/25 - Pressure Injury Stage 2 coccyx - Present on Admission Intact pink/purple blanching and denuded skin. Off loading and moisture management. Based on the above, could you please provide further information regarding the ulcer/wound/injury: Pressure Injury Stage 2 coccyx possible, probable, suspected, cannot rule out etc. Other specified Other (explain) Clinically unable to determine (explain) Thank you, Chey Rodriguez, CCS, CDIS Use of terms such as suspected, likely, concern for, or probable (associated with a specific diagnosis that is being evaluated, monitored, or treated as if it exists) are acceptable and can be coded in the inpatient setting, when documented at the time of discharge. Please use your independent medical judgment in providing your response. THIS QUERY IS PART OF THE PERMANENT MEDICAL RECORD
[2025-08-07] MEDS: Lidocaine 4 % Patch ADH..PATCH 1 PATCH TRANSDERMA (09:37)
--- NOTE | 2025-08-07 10:51 | MHC.CLN ---
F/U PT WITH PEG TUBE FOR NUTRITION PT MUST REMAIN STRICT NPO AND 100% NUTRITION FROM PEG TUBE PT WILL BEG FOR FOOD, STATES HE IS STARVING WITH CHRONIC ASPIRATION IN ADDITION, PT WITH INCREASED NUTRITION RISK R/T PRESSURE INJURY REVIEWED LABS TF CURRENTLY RUNNING AT 30ML/HR WITH PLAN TO ADVANCE TO MAX GOAL RATE RECOMMEND TF OSMOLITE 1.5 AT MAX GOAL RATE 70ML/HR WITH 300ML FREE WATER FLUSHES Q 6 HRS TO PROVIDE 2520KCALS (31KCALS/KG), 105G PROTEIN (1.3G/KG), 2480 ML TOTAL WATER FROM FORMULA AND FLUSHES (31ML/KG) MONITOR TOLERANCE AND LYTES TF WILL PROMOTE WOUND HEALING RD CAN BE REACHED VIA TIGER CONNECT DURING OFF HOURS IF NEEDED
[2025-08-07] MEDS: Valproic Acid Liquid 250 MG/5 ML SOLUTION 1000 MG G-TUBE ×2 (11:19→16:21)
[2025-08-07 12:00] VITALS: BP 151/77; PULSE 93; RESP 20; TEMP 37.2; O2SAT 94
--- NOTE | 2025-08-07 15:25 | P.DS_ITS ---
DS: Providers Provider Date of Service: 08/07/25 Date of admission: 08/05/25 08:52 Date of discharge: 08/07/25 Primary care physician: Melanie Ferris MD Consults: 08/05/25 10:44 Consult to Wound Care Routine Reason for consultation: ? masceration / pressure bilat buttocks Attending physician on discharge: Ap Escalante Discharging clinician: Ap Escalante DS: Diagnosis Discharge Diagnosis (1) Acute hypoxic respiratory failure: Status: Acute (2) Acute respiratory failure: Status: Resolved DS: Summary Hospital Course Hospital Course: HPI:70-year-old gentleman with underlying schizoaffective disorder, CKD, last 1 dementia, recurrent aspirations now status post PEG, sleep apnea, CKD presented on 08/05/2025 from senior care facility with an aspiration event and hypoxia. Patient initially on high-flow nasal cannula, now titrated down to OxyMask. He was started on empiric antibiotics for pulmonary aspiration and admitted to the intensive care unit. Hospital course:70-year-old male with schizoaffective disorder on clozapine, with recent admisison from [facility] after an 8-week hospitalization for persistent suicidal ideation. During his stay, he aspirated after a small comfort feed, requiring brief ICU care with pressors-patient was treated for aspiration pneumonia and recommended-He has a longstanding history of dysphagia, with the most recent barium swallow in May 2025 confirming continued high risk for aspiration; tube feeding is recommended as the sole method of nutrition. admitted again on 08/05:on 08/05/2025 from senior care facility with an aspiration event and hypoxia. Patient initially on high-flow nasal cannula, now titrated down to OxyMask. He was started on empiric antibiotics for pulmonary aspiration and admitted to the intensive care unit(as per ED physician note:he drank water and had putting night before coming to ed). Acute hypoxemic respiratory failure secondary to Aspiration Pneumonia (post-ICU, now stable): Continue Levaquin, blood cultures negative @48hrs, taper oxygen: With the above supportive care patient seems to be improved significantly, going to the rehab with p.o. Levaquin, off oxygen. Dysphagia with High Aspiration Risk: Longstanding dysphagia with repeated aspiration events, including recent episode despite improved barium swallow. Strict NPO except for G-tube feeds and medications, PEG was replaced by surgery 07/27 Continue tube feeding HOB elevated 30?45?. hyponatremia - improved with hydration , moniter bmp , adjust hydration free water 300 ml q4hr.moniter bmp closely. Schizoaffective Disorder/Depression: Managed on clozapine and current psychiatric regimen. Obstructive Sleep Apnea (LOUANN): Diagnosed during recent hospitalization. Continue O2 and nebulizer treatments as needed. CPAP. Mild urinary retention: Monitor PVR in rehab, straight cath if urinary retention greater than 350 mL, consider Maharaj if persistent urinary retention and out patiently urology evaluation if needed. plan: Patient was admitted to the hospital because of aspiration event at rehab: Patient required oxygen due to hypoxemia, IV antibiotics, ICU stay: Seems to be improved going to the rehab. Complete Levaquin 750 mg via PEG q.day for 3 more days. Please repeat chest imaging in 3-4 weeks to see resolution of pneumonia. Repeat chest imaging in 3- 4 weeks to see resolution pneumonia. hyponatremia - improved with hydration , moniter bmp , adjust hydration free water 300 ml q4hr. Patient should be strictly NPO. feeding and meds through the PEG tube. mild urinary retention: Monitor PVRs and straight cath if needed. Consider Maharaj if persistently retaining above 350 mL. Assessment and plan coordination time spent 50 minute. Patient will be going back to the rehab. Time Attestation Total time managing care of this patient today: 50 mintues. Discharge Coordination Time (in mins): 50 min Quality: Safe Use of Opioids Does Pt have an Active Cancer Diagnosis on the Problem List?: No Quality: Stroke Does the patient have a stroke diagnosis?: No Physical Exam Exam: Exam: Appearance: aox3 ,not in acute distress. cvs: [id number], [id number] . res: air entry fair ,no rales or wheezing abd: no rebound or guarding ,nt, bs present. ext pulses present , no cyanosis . neuro: nonfocal. Vital Signs: Vital Signs: Last Vital Signs Temp 99.0 F 08/07/25 12:00 Pulse 93 08/07/25 12:00 Resp 20 08/07/25 12:00 BP 151/77 H 08/07/25 12:00 Pulse Ox 94 08/07/25 12:00 O2 Del Method Room Air 08/07/25 12:00 O2 Flow Rate 7 08/06/25 03:20 FiO2 80 08/05/25 11:08 BMI result Body Mass Index 22.9 DS: Data Data Completed and Pending Labs on day of discharge: Preliminary micro results at discharge 08/05/25 05:09 Blood Culture - Preliminary Blood - Venous No growth after 48 hours. 08/05/25 04:16 Blood Culture - Preliminary Blood - Venous No growth after 48 hours. Imaging Chest x-ray: Radiologist's impression: cxr: Interval removal of left neck central line. Persistent bibasilar consolidations. Discharge Plan Discharge Anticipated Discharge Date/Time: 08/07/25 15:19 Patient Disposition: [facility] Discharge Diagnosis: Acute hypoxemic respiratory failure secondary to Aspiration Pneumonia Referrals: [facility] [Outside] - 1 Week Melanie Ferris MD [Primary Care Provider, Medical] - 1 Week Discharge Medications: New levofloxacin 750 mg Tablet 750 mg feeding tube Q24H Qty: 3 0RF Continued ipratropium-albuterol 0.5 mg-3 mg(2.5 mg base)/3 mL Solution For Nebulization 3 ml inhalation Q6H PRN (Reason: Shortness Of Breath) Qty: 0 0RF atorvastatin 40 mg Tablet 40 mg G-tube BEDTIME Qty: 0 0RF acetaminophen 325 mg Tablet 975 mg G-tube TID Qty: 0 0RF lidocaine [Lidocaine Pain Relief] 4 % Adhesive Patch,Medicated 1 patch transdermal DAILY Qty: 0 0RF Protocol: Apply to: Apply to: affected area trazodone 50 mg Tablet 150 mg G-tube BEDTIME Qty: 0 0RF doxazosin 1 mg Tablet 1 mg PO BEDTIME Qty: 0 0RF Protocol: Hold for SBP< HOLD for SBP < : 90 clozapine 100 mg Tablet 200 mg G-tube DAILY@1700 Qty: 0 0RF haloperidol 1 mg Tablet 1 mg G-tube DAILY Qty: 0 0RF haloperidol 1 mg Tablet 3 mg G-tube BEDTIME Qty: 0 0RF haloperidol 1 mg Tablet 2 mg G-tube BID PRN (Reason: Agitation) Qty: 0 0RF Antacid Ext Str (calcium carb) 300 mg (750 mg) Tablet,Chewable 2.5 tab G-tube TID PRN (Reason: Heartburn) Qty: 0 0RF famotidine 20 mg Tablet 20 mg G-tube BID Qty: 0 0RF bisacodyl [Gentle Laxative (bisacodyl)] 10 mg Suppository 10 mg [place] DAILY PRN (Reason: Constipation) Qty: 0 0RF gabapentin 300 mg Capsule 300 mg G-tube BEDTIME Qty: 0 0RF capsaicin 0.025 % Cream 1 appl topical TID PRN (Reason: Pain, Moderate(Pain Scale 4-6)) Qty: 0 0RF Protocol: Apply to: Apply to: affected area lower back gabapentin 100 mg Capsule 100 mg G-tube DAILY Qty: 0 0RF clozapine 25 mg Tablet 50 mg G-tube DAILY@1100 Qty: 0 0RF simethicone 80 mg Tablet,Chewable 80 mg G-tube Q6H PRN (Reason: Dyspepsia) Qty: 0 0RF valproic acid (as sodium salt) 250 mg/5 mL (5 mL) Solution 1,000 mg G-tube BID@1100,1700 Qty: 0 0RF Discharge Orders: Discharge Order (Routine); Ordered 08/08/25 Ordered By: Ap Escalante Diet: Advance to usual diet Activity on Discharge: As tolerated Stand Alone Forms: Patient Portal Discharge page Print Language: Uzbek Care Plan Goals: Patient was admitted to the hospital because of aspiration event at rehab: Patient required oxygen due to hypoxemia, IV antibiotics, ICU stay: Seems to be improved going to the rehab. Complete Levaquin 750 mg via PEG q.day for 3 more days. Please repeat chest imaging in 3-4 weeks to see resolution of pneumonia. hyponatremia - improved with hydration , moniter bmp , adjust hydration free water 300 ml q4hr. Patient should be strictly NPO, feeding and meds through the PEG tube. mild urinary retention: Monitor PVRs and straight cath if needed. Consider Maharaj if persistently retaining above 350 mL. Health Concerns: As above. Plan of Treatment: As above. Assessment: As above. Patient Instructions: Levofloxacin (By mouth) (Levaquin, Levaquin Leva-jeri)
[2025-08-07 15:41] VITALS: BP 145/75; PULSE 97; RESP 20; TEMP 36.3; O2SAT 93
--- NOTE | 2025-08-07 15:43 | MHC.CM.PN ---
PER MD, PATIENT IS MEDICALLY CLEARED FOR DISCHARGE. PT REC STR, REFERRALS OUT, NO BED OFFERS. [facility] THE ONLY PL[facility] WILLING TO ACCEPT PATIENT BACK. THIS CM PLACED A CALL TO PATIENTS BROTHER/HCP DANIEL TO DISCUSS DISCHARGE PLANS, VOICEMAIL LEFT. THIS CM DISCUSSED PATIENTS CONCERNS WITH [facility] AND LET THEM KNOW HE WAS NOT HAPPY THERE. THEY STATE THEY WILL BE MOVING THE PATIENT TO A DIFFERENT UNIT IN A ROOM WITH A VERY NICE MAN, AND ADMINISTRATION WILL BE MEETING WITH HIM TOMORROW TO DISCUSS HIS CONCERNS. THIS CM MET WITH PATIENT TO EXPLAIN THAT WE HAVE NO OTHER STR OPTIONS FOR HIM. PATIENT WAS MADE AWARE THAT [facility] WILL BE MEETING WITH HIM TO DISCUSS HIS CONCERNS. PATIENT IS IN AGREEMENT WITH RETURNING TO [facility] TODAY, HE WILL TRANSPORT THERE VIA [employer].
--- NOTE | 2025-08-07 16:15 | P.PNIM_ITS ---
Subjective Subjective Date of Service: 08/08/25 Physical Exam 2 Vital Signs: Vital Signs: Last Vital Signs Temp 97.3 F 08/07/25 15:41 Pulse 97 08/07/25 15:41 Resp 20 08/07/25 15:41 BP 145/75 H 08/07/25 15:41 Pulse Ox 93 08/07/25 15:41 O2 Del Method Room Air 08/07/25 15:41 O2 Flow Rate 7 08/06/25 03:20 FiO2 80 08/05/25 11:08 BMI result Body Mass Index 22.9 Objective Data Active Medications Acetaminophen (Acetaminophen 325 Mg Tablet) 975 mg G-TUBE TID [facility] Last Admin: 08/07/25 09:36 Dose: 975 mg Documented By: FRANCOIS Albuterol/Ipratropium (Albuterol/Iprat 2.5/0.5mg 3 Ml Ampul.Neb) 3 ml INHALE Q6H PRN PRN Reason: Shortness of Breath Atorvastatin Calcium (Atorvastatin Calcium 40 Mg Tablet) 40 mg G-TUBE BEDTIME [facility] Last Admin: 08/06/25 21:51 Dose: 40 mg Documented By: KASSANDRA Bisacodyl (Bisacodyl 10 Mg Supp.Rect) 10 mg [place] DAILY PRN PRN Reason: Constipation Calcium Carbonate (Calcium Carbonate 750 Mg Tab.Chew) 750 mg G-TUBE TID PRN PRN Reason: Heartburn Capsaicin (Capsaicin 0.025% Cream 60 Gm Tube) 1 appl TOPICAL TID PRN; Protocol PRN Reason: Pain, Moderate(Pain Scale 4-6) Clozapine (Clozapine 25 Mg Tablet) 50 mg G-TUBE DAILY@1100 [facility] Last Admin: 08/07/25 11:19 Dose: 50 mg Documented By: FRANCOIS Clozapine (Clozapine 100 Mg Tablet) 200 mg G-TUBE DAILY@1700 [facility] Last Admin: 08/06/25 18:02 Dose: 200 mg Documented By: LATESHA Doxazosin Mesylate (Doxazosin Mesylate 1 Mg Tablet) 1 mg PO BEDTIME [facility]; Protocol Last Admin: 08/06/25 21:51 Dose: 1 mg Documented By: KASSANDRA Famotidine (Famotidine 20 Mg Tablet) 20 mg G-TUBE BID [facility] Last Admin: 08/07/25 09:37 Dose: 20 mg Documented By: FRANCOIS Gabapentin (Gabapentin 100 Mg Capsule) 100 mg G-TUBE DAILY [facility] Last Admin: 08/07/25 09:36 Dose: 100 mg Documented By: FRANCOIS Gabapentin (Gabapentin 300 Mg Capsule) 300 mg G-TUBE BEDTIME [facility] Last Admin: 08/06/25 21:51 Dose: 300 mg Documented By: KASSANDRA Haloperidol (Haloperidol 1 Mg Tablet) 1 mg G-TUBE DAILY [facility] Last Admin: 08/07/25 09:36 Dose: 1 mg Documented By: FRANCOIS Haloperidol (Haloperidol 1 Mg Tablet) 2 mg G-TUBE BID PRN PRN Reason: Agitation Haloperidol (Haloperidol 1 Mg Tablet) 3 mg G-TUBE BEDTIME [facility] Last Admin: 08/06/25 21:51 Dose: 3 mg Documented By: KASSANDRA Heparin Sodium (Porcine) (Heparin Sodium,Porcine 5,000 Unit/Ml Vial) 5,000 unit SUBCUT Q8H [facility] Last Admin: 08/07/25 14:04 Dose: 5,000 unit Documented By: FRANCOIS Levofloxacin (Levaquin) 750 mg in 150 mls @ 100 mls/hr IV Q24H [facility] Last Infusion: 08/07/25 12:51 Dose: Infused Documented By: FRANCOIS Lidocaine (Lidocaine 4 % Patch Adh..Patch) 1 patch TRANSDERMA DAILY [facility]; Protocol Last Admin: 08/07/25 09:37 Dose: 1 patch Documented By: FRANCOIS Simethicone (Simethicone 80 Mg Tab.Chew) 80 mg G-TUBE Q6H PRN PRN Reason: Dyspepsia Trazodone HCl (Trazodone Hcl 50 Mg Tablet) 150 mg G-TUBE BEDTIME [facility] Last Admin: 08/06/25 21:51 Dose: 150 mg Documented By: KASSANDRA Valproic Acid (Valproic Acid Liquid 250 Mg/5 Ml Solution) 1,000 mg G-TUBE BID@1100,1700 [facility] Last Admin: 08/07/25 11:19 Dose: 1,000 mg Documented By: FRANCOIS Labs 08/06/25 06:25 08/07/25 21:37 Microbiology Microbiology Results: Microbiology 08/05/25 05:09 Blood Culture - Preliminary Blood - Venous No growth after 48 hours. 08/05/25 04:16 Blood Culture - Preliminary Blood - Venous No growth after 48 hours. Assessment and Plan (1) Hypernatremia: Status: Acute Plan 70-year-old male with schizoaffective disorder on clozapine, with recent admisison from [facility] after an 8-week hospitalization for persistent suicidal ideation. During his stay, he aspirated after a small comfort feed, requiring brief ICU care with pressors-patient was treated for aspiration pneumonia and recommended-He has a longstanding history of dysphagia, with the most recent barium swallow in May 2025 confirming continued high risk for aspiration; tube feeding is recommended as the sole method of nutrition. admitted again on 08/05:on [facility] with an aspiration event and hypoxia. Patient initially on high-flow nasal cannula, now titrated down to OxyMask. He was started on empiric antibiotics for pulmonary aspiration and admitted to the intensive care unit(as per ED physician note:he drank water and had putting night before coming to ed). Acute hypoxemic respiratory failure secondary to Aspiration Pneumonia (post-ICU, now stable): Continue Levaquin, follow cultures, taper oxygen. Dysphagia with High Aspiration Risk: Longstanding dysphagia with repeated aspiration events, including recent episode despite improved barium swallow. Strict NPO except for G-tube feeds and medications, PEG was replaced by surgery 07/27 Continue tube feeding HOB elevated 30?45?. Schizoaffective Disorder/Depression: Managed on clozapine and current psychiatric regimen. Psychiatry available for consultation as needed. Obstructive Sleep Apnea (LOUANN): Diagnosed during recent hospitalization. Continue O2 and nebulizer treatments as needed. Use PRN CPAP. Hypernatremia : will check sodium levels Recommendations: 1. Turn and Reposition every 2 hours and as needed for patient comfort. Use pillows or wedges to support off loading positions. 2. Off Load all bony prominences with use of pillows and heel boots if needed. Apply Preventative foams where needed. 3. Monitor for incontinence and moisture control, use barrier creams when needed for prevention and treatment. 4. Provide adequate and supplemental nutrition. 5. Order or Continue low air loss mattress. 6. When applicable maintain blood glucose levels per Providers order. Re-consult wound care Nurse for wound deterioration or wound changes. Bilateral heels and ankles: Elevate heels off of bed surface with pillows. Float heels off of pillows. Apply skin prep allow to dry. Apply heel foam dressings, peel back and assess Q shift and change every 5-7 days and PRN Coccyx/buttock: Off Load Pressure with Q2 hr turns and use of pillows - Cleanse with PH balance spray or wipes, pat dry. ?Apply thin layer of Triad to wound bed. Do not remove all of paste between applications as this may cause further skin damage.? Cover with foam dressing to aid in off loading and protection from friction. Change every 3 days and PRN. Ongoing need of stay: Acute hypoxemic respiratory failure secondary to aspiration event-continue IV antibiotics, taper oxygen, also has hypernatremia - on d5w -moniter renal function/electrolytes. Quality Stroke Does the patient have a stroke diagnosis?: No VTE Prior VTE?: No VTE Risk Level:: Medical - moderate - high VTE Device Contraindication: Treatment Not Indicated VTE Drug Contraindication: N/A - Med Ordered
--- NOTE | 2025-08-07 16:19 | P.CDIM_ITS ---
PROVIDER RESPONSE TEXT: To clarify, the appropriate diagnosis supported by the clinical indicators: Hypernatremia: due to dehydration QUERY TEXT: PHYSICIAN'S DOCUMENTATION REQUEST Date of Query: 08/07/2025 12:14 PM EDT Patient Name: Carter Raymundo Admit Date: 08/05/2025 Dear Ap Escalante MD, A review of the medical record indicates additional documentation may be needed. Please review below and update the documentation accordingly. Clinical Indicators: LABS: Sodium 147 H 151 H Based on the above, is there a diagnosis that correlates with these findings? Hypernatremia possible, resolved, suspected etc. Labs indicate a diagnosis of (please specify) Other (explain) Clinically unable to determine (explain) Thank you, Chey Rodriguez, CCS, CDIS Use of terms such as suspected, likely, concern for, or probable (associated with a specific diagnosis that is being evaluated, monitored, or treated as if it exists) are acceptable and can be coded in the inpatient setting, when documented at the time of discharge. Please use your independent medical judgment in providing your response. THIS QUERY IS PART OF THE PERMANENT MEDICAL RECORD
--- NOTE | 2025-08-07 16:19 | P.CDIM_ITS ---
PROVIDER RESPONSE TEXT: To clarify, the appropriate diagnosis supported by the clinical indicators: Pressure Injury Stage 1 right ankle: pressure stage 1 QUERY TEXT: PHYSICIAN'S DOCUMENTATION REQUEST Date of Query: 08/07/2025 05:37 AM EDT Patient Name: Carter Raymundo Admit Date: 08/05/2025 Dear Ap Escalante MD, A review of the medical record indicates additional documentation may be needed. Please review below and update the documentation accordingly. Clinical Indicators: Wound care consultation note dated 08/05/25 - Stage 1 Pressure Injury right lateral ankle - Present on Admission Off loading. - Add heel foam dressings, peel back and assess Q shift and change every 5-7 days and PRN. Based on the above, could you please provide further information regarding the ulcer/wound/injury: Pressure Injury Stage 1 right ankle possible, probable, suspected etc. Other specifics Other (explain) Clinically unable to determine (explain) Thank you, Chey Rodriguez, CCS, CDIS Use of terms such as suspected, likely, concern for, or probable (associated with a specific diagnosis that is being evaluated, monitored, or treated as if it exists) are acceptable and can be coded in the inpatient setting, when documented at the time of discharge. Please use your independent medical judgment in providing your response. THIS QUERY IS PART OF THE PERMANENT MEDICAL RECORD
--- NOTE | 2025-08-07 16:23 | MHC.CM.PN ---
Addendum entered by Mariama Parikh 08/08/25 11:23: CM RECEIVED A CALL FROM PTS BROTHER/HCP WHO REPORTS HE WAS JUST CALLED BY AN RN SAYING PT WAS GOING TO DC HE REPORTS HE WAS NOT INFORMED PT WOULD BE GOING AND IS WORRIED ABOUT WHERE HE MAY BE SENT CM INFORMED HIM PT WOULD BE RETURNING TO [facility], HE REPORTS BEING HAPPY ABOUT THAT AND STATES SNF HAS BEEN GOOD TO WORK WITH HE IS AWARE PT WILL DC TO [facility] TODAY [facility]IA [facility] Original Note: PER MD, WE NEED TO CANCEL DISCHARGE FOR TODAY DUE TO THE NEED TO RE-CHECK LABS. BLS/[facility] CANCELLED FOR THIS EVENING, [facility] IS PRE-BOOKED FOR TOMORROW 08/08 AT 10AM. [facility] UPDATED. PATIENT UPDATED.
[2025-08-07 17:21] LABS: Sodium 149 mmol/L (135-145)
[2025-08-07 19:32] VITALS: BP 133/79; PULSE 96; RESP 18; TEMP 36.7; O2SAT 93
[2025-08-07 21:59] LABS: Anion Gap 12 (12-20); Blood Urea Nitrogen 42 mg/dL (9-16); Calcium 8.6 mg/dL (8.4-10.2); Carbon Dioxide 27 mmol/L (22-29); Chloride 113 mmol/L (96-108); Creatinine Clr Calc Pharmacy 72.4; Estimated Glomerular Filt Rate > 60; Potassium 3.5 mmol/L (3.3-5.1); Sodium 148 mmol/L (135-145)
[2025-08-08] VITALS: BP 133/74; PULSE 96; RESP 18; TEMP 36.7; O2SAT 94
[2025-08-08] MEDS: Lidocaine 4 % Patch ADH..PATCH 2 PATCH TRANSDERMA (00:18)
[2025-08-08 03:58] VITALS: BP 136/79; PULSE 91; RESP 18; TEMP 36.6; O2SAT 97
[2025-08-08 07:26] VITALS: BP 146/70; PULSE 83; RESP 20; TEMP 36.8; O2SAT 95
[2025-08-08 09:33] LABS: Sodium 144 mmol/L (135-145)
== END 2025-08-08 11:33 | disposition skilled nursing facility (03) | DRG 177 ==
LOC: HO.ED 07:44 → HO.EDOVER 08:52 → HO.ICU 09:16 → HO.IMC 19:00
PROVIDERS: Physician Assistant; Admitting Provider Internal Medicine Pulmonary Disease; Emergency Provider Emergency Medicine; PCP Internal Medicine; Visit Provider Internal Medicine
DX: J69.0 Pneumonitis due to inhalation of food and vomit (principal); J96.01 Acute respiratory failure with hypoxia; E87.0 Hyperosmolality and hypernatremia; L89.152 Pressure ulcer of sacral region, stage 2; F25.9 Schizoaffective disorder, unspecified; N40.1 Benign prostatic hyperplasia with lower urinary tract symptoms; R33.8 Other retention of urine; G47.33 Obstructive sleep apnea (adult) (pediatric); L89.511 Pressure ulcer of right ankle, stage 1; F03.90 Unspecified dementia, unspecified severity, without behavioral disturbance, psychotic disturbance, mood disturbance, and anxiety; Z93.1 Gastrostomy status; R13.10 Dysphagia, unspecified; Z20.822 Contact with and (suspected) exposure to COVID-19; Z79.899 Other long term (current) drug therapy
CPT/HCPCS: 36415; 71045; 80048; 80053; 82040; 82803; 83605; 83735; 83880; 84100; 84295; 84484; 85025; 87040; 87637; 93005; 94799; 97162; 99285; J0131; J1644; J1885; J1956; J2543; J3374; J7120

== ENCOUNTER → 2025-08-05 04:17 | Outpatient (BNV) | payer MEDICARE, SELFPAY | PROVIDERS: Visit Provider Student in an Organized Health Care Education/Training Program | DX: R06.00 Dyspnea, unspecified (principal) | CPT/HCPCS: 71045 ==

== ENCOUNTER → 2025-08-05 04:50 | Outpatient (BNV) | payer MEDICARE, SELFPAY | PROVIDERS: Admitting Provider Internal Medicine Pulmonary Disease; Emergency Provider Emergency Medicine; PCP Internal Medicine; Visit Provider Internal Medicine Cardiovascular Disease | DX: R00.0 Tachycardia, unspecified (principal) | CPT/HCPCS: 93010 ==

== ENCOUNTER → 2025-08-05 07:41 | Outpatient (BNV) | payer MEDICARE, SELFPAY | PROVIDERS: Emergency Provider Emergency Medicine; PCP Internal Medicine; Visit Provider Internal Medicine Pulmonary Disease | DX: J96.01 Acute respiratory failure with hypoxia (principal); T17.908A Unspecified foreign body in respiratory tract, part unspecified causing other injury, initial encounter; F20.9 Schizophrenia, unspecified | CPT/HCPCS: 99291 ==

== ENCOUNTER → 2025-08-05 08:52 | Outpatient (BNV) | payer MEDICARE, SELFPAY | PROVIDERS: Admitting Provider Internal Medicine Pulmonary Disease; Emergency Provider Emergency Medicine; PCP Internal Medicine; Visit Provider Internal Medicine | DX: J96.01 Acute respiratory failure with hypoxia (principal); J96.00 Acute respiratory failure, unspecified whether with hypoxia or hypercapnia | CPT/HCPCS: 99231; 99232; 99239; 99499 ==